=== PATIENT | male | born 1980 | race Caucasian/White ===

== ENCOUNTER 2018-05-27 13:58 | Inpatient (IN) | payer BC ==
[~2018-05-27] VITALS: Ht 182.9 cm; Wt 137.7 kg
--- NOTE | 2018-05-27 07:01 | NUR ---
report given to oncoming nurse
[~2018-05-27 13:58] MED LIST: LEVAQUIN500 MG PO; PANTOPRAZOLE SO40 MG PO; TRIBENZOR 40-51 EACH PO
--- OUTSIDE RECORDS SUMMARY | 2018-05-27 14:01 | XMS REPORT | Clinical Summary ---
Author Author [facility] Organization [facility] Address Unknown Phone Unavailable Care Team Providers Care Shake Sawyer Name Role Phone PCP Unavailable Allergies No Known Allergies Medications End Date Status Medication Sig Dispensed Refills Start Date 07/28/2018 Active hydroCHLOROthiazide Take 1 tablet 90 tablet 1 (HYDRODIURIL) 25 mg by mouth 8 tabletIndications: daily for 180 Alcoholic hepatitis days. without ascites, Hypertension, unspecified type 01/28/2018 Discontinued Olmesartan-Hydrochlorothi Take 1 tablet 0 azide 40-12.5 mg per by mouth tabletIndications: Dr. sky Alvarado evening. 01/28/2018 Discontinued metroNIDAZOLE (FLAGYL) Take 500 mg 0 500 mg tabletIndications: by mouth 3 Dr. Jayy Myrick times daily. 01/28/2018 Discontinued Omeprazole 40 mg Take 40 mg by 0 capsuleIndications: Dr. thayer daily. Jayy Myrick 01/28/2018 Discontinued ciprofloxacin HCl (CIPRO) Take 750 mg 0 750 mg tabletIndications: by mouth 2 Dr. Jayy Myrick times daily. 01/21/2018 01/28/2018 Discontinued traZODone (DESYREL) 100 Take 100 mg 0 mg tabletIndications: by mouth at chronic trouble sleeping bedtime nightly. 01/28/2018 Discontinued traZODone (DESYREL) 50 mg Take 1 tablet 30 tablet 2 tabletIndications: by mouth 8 Alcoholic hepatitis every evening without ascites for 90 days. 01/28/2018 Discontinued folic acid (FOLVITE) 1 mg Take 1 tablet 30 tablet 2 tabletIndications: by mouth 8 Alcoholic hepatitis daily for 90 without ascites days. 04/29/2018 cyanocobalamin, vitamin Take 1 tablet 30 tablet 2 B-12, 1,000 mcg by mouth 8 tabletIndications: daily for 90 Alcoholic hepatitis days. without ascites 01/28/2018 Discontinued hydroCHLOROthiazide Take 1 tablet 90 tablet 1 (HYDRODIURIL) 25 mg by mouth 8 tabletIndications: daily for 180 Alcoholic hepatitis days. without ascites, Hypertension, unspecified type 01/28/2018 Discontinued multivitamin Take 1 tablet 30 tablet 2 tabletIndications: by mouth 8 Alcoholic hepatitis daily for 90 without ascites days. 01/28/2018 Discontinued NIFEdipine (PROCARDIA XL) Take 1 tablet 60 tablet 2 30 mg extended release by mouth 8 tabletIndications: every 12 Alcoholic hepatitis hours for 90 without ascites, days. Hypertension, unspecified type 04/28/2018 traZODone (DESYREL) 50 mg Take 1 tablet 30 tablet 2 tabletIndications: by mouth 8 Alcoholic hepatitis every evening without ascites for 90 days. 04/29/2018 folic acid (FOLVITE) 1 mg Take 1 tablet 30 tablet 2 tabletIndications: by mouth 8 Alcoholic hepatitis daily for 90 without ascites days. 01/28/2018 Discontinued hydroCHLOROthiazide Take 1 tablet 90 tablet 1 (HYDRODIURIL) 25 mg by mouth 8 tabletIndications: daily for 180 Alcoholic hepatitis days. without ascites, Hypertension, unspecified type 04/29/2018 multivitamin Take 1 tablet 30 tablet 2 tabletIndications: by mouth 8 Alcoholic hepatitis daily for 90 without ascites days. 01/28/2018 Discontinued NIFEdipine (PROCARDIA XL) Take 1 tablet 60 tablet 2 30 mg extended release by mouth 8 tabletIndications: every 12 Alcoholic hepatitis hours for 90 without ascites, days. Hypertension, unspecified type 04/28/2018 NIFEdipine (PROCARDIA XL) Take 1 tablet 60 tablet 2 30 mg extended release by mouth 8 tabletIndications: every 12 Alcoholic hepatitis hours for 90 without ascites, days. Hypertension, unspecified type Active Problems Problem Noted Date Sinus tachycardia 01/28/2018 Hypertension 01/28/2018 Prediabetes 01/28/2018 Alcoholic hepatitis without ascites Acute kidney injury Resolved Problems Problem Noted Date Resolved Date Sepsis 01/24/2018 01/28/2018 Alcohol withdrawal 01/24/2018 01/28/2018 Hepatitis 01/24/2018 01/28/2018 Encounters Care Team Description Date Type Specialty Pia Beltran ResidentMD Greenberg, Dannie B, MD Alcoholic hepatitis without ascites (Primary Dx); Sepsis, due to unspecified organism; Acute kidney injury; Hypertension, unspecified type 01/24/2018 Hospital - Encounter 01/28/2018 after 05/26/2017 Family History Medical History Relation Name Comments Hypertension Father Hypertension Mother Relation Name Status Comments Brother Alive Father Mother Alive Social History Date Tobacco Use Types Packs/Day Years Used Never Smoker Smokeless Tobacco: Never Used Alcohol Use Drinks/Week oz/Week Comments Yes 3 Shots of 1.8 last drink Sunday: 4 vodka shots; 3-4 drinks a liquor night Sex Assigned at Date Recorded Not on file Industry Job Start Date Occupation Not on file Not on file Not on file Travel End Travel History Travel Start No recent travel history available. Last Filed Vital Signs Time Taken Vital Sign Reading 01/28/2018 12:55 PM [employer] Blood Pressure 122/75 01/28/2018 12:55 PM [employer]ATION ARCH[employer] Pulse 98 01/28/2018 12:55 PM [employer]OMATION ARCHIT[employer] Temperature 37 C (98.6 F) 01/28/2018 12:55 PM AUTOMATION ARCHITECT Respiratory Rate 18 01/25/2018 2:15 PM AUTOMATION ARCHITECT Oxygen Saturation 98% - Inhaled Oxygen - Concentration 01/25/2018 2:43 PM AUTOMATION ARCHITECT Weight 127.9 kg (282 lb) 01/25/2018 2:43 PM AUTOMATION ARCHITECT Height 182.9 cm (6') 01/25/2018 2:43 PM AUTOMATION ARCHITECT Body Mass Index 38.25 Plan of Treatment Health Maintenance Due Date Last Done Comments IMM Influenza Seasonal 11/26/2018 Oct to April (>/=19 yrs) Procedures Comments Procedure Name Priority Date/Time Associated Diagnosis TRANSTHORACIC ECHO (TTE) 01/28/2018 10:24 AM AUTOMATION ARCHITECT GLUCOSE POC Routine 01/28/2018 6:50 AM AUTOMATION ARCHITECT SALIVARY CORTISOL Routine 01/28/2018 5:40 AM AUTOMATION ARCHITECT CORTISOL, TOTAL Routine 01/28/2018 4:30 AM AUTOMATION ARCHITECT COMPREHENSIVE METABOLIC Routine 01/28/2018 PANEL(DBIL NOT INCLUDED) 4:30 AM AUTOMATION ARCHITECT CBC/DIFF Routine 01/28/2018 4:30 AM AUTOMATION ARCHITECT PT/INR/PTT Routine 01/27/2018 4:30 AM AUTOMATION ARCHITECT COMPREHENSIVE METABOLIC Routine 01/27/2018 PANEL(DBIL NOT INCLUDED) 4:30 AM AUTOMATION ARCHITECT CBC/DIFF Routine 01/27/2018 4:30 AM AUTOMATION ARCHITECT UA CHEMISTRIES Routine 01/26/2018 8:53 AM AUTOMATION ARCHITECT T PROT/CREA RATIO,UR Routine 01/26/2018 8:53 AM AUTOMATION ARCHITECT FREE T4 Routine 01/26/2018 4:20 AM AUTOMATION ARCHITECT TSH Routine 01/26/2018 4:20 AM AUTOMATION ARCHITECT PT/INR/PTT Routine 01/26/2018 4:20 AM AUTOMATION ARCHITECT COMPREHENSIVE METABOLIC Routine 01/26/2018 PANEL(DBIL NOT INCLUDED) 4:20 AM AUTOMATION ARCHITECT CBC/DIFF Routine 01/26/2018 4:20 AM AUTOMATION ARCHITECT INFUSION PUMP Routine 01/25/2018 2:39 PM AUTOMATION ARCHITECT BASIC METABOLIC PANEL STAT 01/25/2018 11:56 AM AUTOMATION ARCHITECT CBC/DIFF STAT 01/25/2018 11:56 AM AUTOMATION ARCHITECT HEMOGLOBIN A1C STAT 01/25/2018 11:56 AM AUTOMATION ARCHITECT CREATININE, UR STAT 01/25/2018 11:56 AM AUTOMATION ARCHITECT UREA NITROGEN, UR STAT 01/25/2018 11:56 AM AUTOMATION ARCHITECT ELECTROLYTES, UR STAT 01/25/2018 11:56 AM AUTOMATION ARCHITECT BASIC METABOLIC PANEL Routine 01/25/2018 4:00 AM AUTOMATION ARCHITECT LACTIC ACID STAT 01/25/2018 4:00 AM AUTOMATION ARCHITECT ALCOHOL STAT 01/25/2018 4:00 AM AUTOMATION ARCHITECT HEPATITIS PANEL STAT 01/25/2018 4:00 AM AUTOMATION ARCHITECT VITAMIN B12 STAT 01/25/2018 4:00 AM AUTOMATION ARCHITECT LACTIC ACID STAT 01/25/2018 12:00 AM AUTOMATION ARCHITECT FOLIC ACID STAT 01/25/2018 12:00 AM AUTOMATION ARCHITECT VITAMIN B12 STAT 01/25/2018 12:00 AM AUTOMATION ARCHITECT COMPREHENSIVE METABOLIC STAT 01/25/2018 PANEL(DBIL NOT INCLUDED) 12:00 AM AUTOMATION ARCHITECT URINE CULTURE STAT 01/24/2018 10:00 PM AUTOMATION ARCHITECT XRAY CHEST 2 VIEWS STAT 01/24/2018 Sepsis, due to 9:37 PM AUTOMATION ARCHITECT unspecified organism COMPUTED TOMOGRAPHY STAT 01/24/2018 Sepsis, due to ABDOMEN AND PELVIS 8:42 PM AUTOMATION ARCHITECT unspecified organism WITHOUT CONTRAST VBG POC Routine 01/24/2018 5:48 PM AUTOMATION ARCHITECT PT/INR/PTT STAT 01/24/2018 5:43 PM AUTOMATION ARCHITECT BLOOD CULTURE STAT 01/24/2018 5:40 PM AUTOMATION ARCHITECT BLOOD CULTURE STAT 01/24/2018 5:40 PM AUTOMATION ARCHITECT BMP POC Routine 01/24/2018 11:58 AM AUTOMATION ARCHITECT 12 LEAD EKG Routine 01/24/2018 11:51 AM AUTOMATION ARCHITECT HIV-1/HIV-2 ROUTINE STAT 01/24/2018 SCREENING 11:38 AM AUTOMATION ARCHITECT UA CHEMISTRIES STAT 01/24/2018 11:38 AM AUTOMATION ARCHITECT LIPASE STAT 01/24/2018 11:38 AM AUTOMATION ARCHITECT LIVER PROFILE STAT 01/24/2018 11:38 AM AUTOMATION ARCHITECT CBC/DIFF STAT 01/24/2018 11:38 AM AUTOMATION ARCHITECT after 05/26/2017 Results * TRANSTHORACIC ECHO (TTE) (01/28/2018 10:24 AM AUTOMATION ARCHITECT) TRANSTHORACIC Transthoracic SMS ECHO (TTE) Echo Report INDRA GALVAN Age:37 Gender: M :1980 Exam Date: 01/28/2018 10:24 Exam Location: [facility] Echo Ordering Phys: DANNIE TINOCO Referring Phys:[id number], DEVON Reading Phys:Tejas Gong MD Fellow Phys: Madelin Martines M.D. Fellow Phys: Review Coordinator: Peter Smith Reason For Exam: Indications: Dyspnea, unspecified ICD-9 Codes: R06.00 Exam Type: TRANSTHORACIC ECHO (TTE) Procedure CPT:29255 Addtional CPT: Ht (in): 72 BSA: 2.60HR: 116 Rhythm: Sinus tachycardia Wt (lb): 282BP: 100/ 65 Technical Quality: Technically difficult study History: 37 yo M with HTN, SOB MEASUREMENTS Normal ranges based on 95% confidence intervals for adults, some normal patients may fall outside of this range especially when indexing for BSA 2D ECHO LV Diastolic Diameter PLAX4.3 cm 4.2-5.8 (M) / 3.8-5.2 (F) LV Systolic Diameter PLAX 2.8 cm 2.5-4.0 (M) / 2.2-3.5 (F) LV Fractional Shortening PLAX 33.6 % IVS Diastolic Thickness 0.9 cm 0.6-1.0 (M) / 0.6-0.9 (F) LVPW Diastolic Thickness0 .9 cm 0.6-1.0 (M) / 0.6-0.9 (F) LV Relative Wall Thickness0.42 <=0.42 LVOT Diameter 2.3 cm Aortic Root Diameter 3.5 cm LV Diastolic Volume MOD 4C135 cm LV Systolic Volume MOD 4C 58.5 cm LA Volume 61.9 cm LA Volume Index 23.8 cm/m 16 - 34 cm/m LV Mass by linear [id number] g LV Mass by linear method Index46.8 g/m DOPPLER LVOT Peak Velocity 122 cm/s LVOT Peak Gradient 5.9 mmHg LVOT Mean Velocity 85.7 cm/s LVOT Mean Gradient 2.9 mmHg LVOT Velocity Time Integral 20.4 cm LVOT Stroke Volume 84.4 cm LV E' Lateral Velocity 11.2 cm/s FINDINGS Left Ventricle Normal left ventricular size. Normal left ventricular wall thickness. Normal left ventricular systolic function. Left ventricular ejection fraction is 60- 65%. There are no regional wall motion abnormalities noted. Cannot grade LV diastology due to tachycardia and E-A fusion. Right Ventricle Grossly normal right ventricular size and function. S' 14cm/s, which is normal. Right Atrium Grossly normal right atrial size. Left Atrium Normal left atrial size. IAS Mitral Valve Grossly normal mitral valve. Trace mitral regurgitation. Aortic Valve The aortic valve is trileaflet and opens well. No significant aortic stenosis or regurgitation by Doppler assessment. Tricuspid Valve Grossly normal tricuspid valve. No significant tricuspid stenosis or regurgitation by Doppler assessment. Pulmonic Valve Structurally normal pulmonic valve. Trace pulmonic regurgitation. Pericardium Echo free space anterior to the right ventricle likely represents a fat pad. Aorta Normal size aortic root. IVC IVC is not optimally visualized. CONCLUSIONS Technically difficult study. No prior study for comparison. 1. Normal left ventricular size. Normal left ventricular wall thickness. Normal left ventricular systolic function. Left ventricular ejection fraction is 60- 65%. There are no regional wall motion abnormalities noted. Cannot grade LV diastology due to tachycardia and E-A fusion. 2. Grossly normal right ventricular size and function. S' 14cm/s, which is normal. 3. No significant valve abnormalities. Tejas Gong MD Edited by:Tejas Gong MD (Electronically Signed) Final Date:28 January 2018 11:16 2D ECHO LV Diastolic Diameter PLAX4.3 cm 4.2-5.8 (M) / 3.8-5.2 (F) LV Systolic Diameter PLAX 2.8 cm 2.5-4.0 (M) / 2.2-3.5 (F) LV Fractional Shortening PLAX 33.6 % IVS Diastolic Thickness 0.9 cm 0.6-1.0 (M) / 0.6-0.9 (F) LVPW Diastolic Thickness0 .9 cm 0.6-1.0 (M) / 0.6-0.9 (F) LV Relative Wall Thickness0.42 <=0.42 LVOT Diameter 2.3 cm Aortic Root Diameter 3.5 cm LV Diastolic Volume MOD 4C135 cm LV Systolic Volume MOD 4C 58.5 cm LA Volume 61.9 cm LA Volume Index 23.8 cm/m 16 - 34 cm/m LV Mass by linear g LV Mass by linear method Index46.8 g/m DOPPLER LVOT Peak Velocity 122 cm/s LVOT Peak Gradient 5.9 mmHg LVOT Mean Velocity 85.7 cm/s LVOT Mean Gradient 2.9 mmHg LVOT Velocity Time Integral 20.4 cm LVOT Stroke Volume 84.4 cm LV E' Lateral Velocity 11.2 cm/s Performing Organization Address City/State/Zipcode Phone Number SMS * GLUCOSE POC (01/28/2018 6:50 AM AUTOMATION ARCHITECT) Glucose POC 147 (H) 74 - 106 mg/dL BT MAIN-STATION 1 Performing Organization Address City/[facility] Phone Number MISYS BT MAIN-STATION 1 * SALIVARY CORTISOL (01/28/2018 5:40 AM AUTOMATION ARCHITECT) Pathologist [employer] Salivary 0.221 LABORATORY Cortisol Unit: ug/dL [facility] OF (note) KATT Reference Range: Children and Adults: 8:00a.m.: 0.025 - 0.600 Noon:<0.010 - 0.330 4:00p.m.: 0.010 - 0.200 Midnight:<0.010 - 0.090 Specimen Other (Specify in Comments) Performing Organization Address City/[facility] Phone Number [employer] [facility] OF [address] [id number] [facility] 145 * COMPREHENSIVE METABOLIC PANEL(DBIL NOT INCLUDED) (01/28/2018 4:30 AM AUTOMATION ARCHITECT) Only the most recent of 4 results within the time period is included. Albumin 3.5 (L) 4.2 - 5.5 g/dL BT MAIN-STATION 1 Calcium 9.3 8.6 - 10.3 mg/dL BT MAIN-STATION 1 CO2 30 21 - 31 mmol/L BT MAIN-STATION 1 Chloride 96 (L) 98 - 107 mmol/L BT MAIN-STATION 1 Creatinine 1.60 (H) 0.7 - 1.3 mg/dL BT MAIN-STATION 1 Glucose 108 70 - 110 mg/dL BT MAIN-STATION 1 Alk Phos 86 34 - 104 U/L BT MAIN-STATION 1 Potassium 3.5 3.5 - 5.1 mmol/L BT MAIN-STATION 1 Sodium 138 136 - 145 mmol/L BT MAIN-STATION 1 ALT 25 7 - 52 U/L BT MAIN-STATION 1 AST 52 (H) 13 - 39 U/L BT MAIN-STATION 1 Urea Nitrogen 11 7 - 25 mg/dL BT MAIN-STATION 1 T Bilirubin 1.7 (H) 0.2 - 1.2 mg/dL BT MAIN-STATION 1 T Protein 6.5 6.0 - 8.3 g/dL BT MAIN-STATION 1 GFR, Estimated 48 mL/min/1.73 m2 BT MAIN-STATION 1 GFR, Estim, 59 mL/min/1.73 m2 BT MAIN-STATION Afr-Am 1 Anion Gap 12 BT MAIN-STATION 1 Specimen Blood Performing Organization Address [facility]/Zipcode Phone Number MISYS BT MAIN-STATION 1 * CORTISOL, TOTAL (01/28/2018 4:30 AM AUTOMATION ARCHITECT) Cortisol, Total 12.3 3.44 - 22.45 mcg/dL BT MAIN-STATION 1 Performing Organization Address [facility] Phone Number MISYS BT MAIN-STATION 1 * CBC/DIFF (01/28/2018 4:30 AM AUTOMATION ARCHITECT) Only the most recent of 5 results within the time period is included. WBC 12.9 (H) 4.5 - 12.0 K/uL BT MAIN-STATION 2 RBC 3.93 (L) 4.60 - 6.20 M/uL BT MAIN-STATION 2 Hemoglobin 13.7 (L) 14.0 - 18.0 g/dL BT MAIN-STATION 2 Hematocrit 39.0 (L) 40.0 - 54.0 % BT MAIN-STATION 2 MCV 99 (H) 82 - 92 fL BT MAIN-STATION 2 MCH 34.9 (H) 27.0 - 31.0 pg BT MAIN-STATION 2 MCHC 35.1 32.0 - 36.0 g/dL BT MAIN-STATION 2 RDW 44.0 (H) 35.1 - 43.9 fL BT MAIN-STATION 2 Platelet 340 150 - 400 K/uL BT MAIN-STATION 2 Mean Platelet 10.2 9.4 - 12.4 fL BT MAIN-STATION Volume 2 Percent NRBC 0.0 BT MAIN-STATION 2 Absolute NRBC 0.00 BT MAIN-STATION 2 Neutrophil 74.9 (H) 34.0 - 67.9 % BT MAIN-STATION 2 Lymphocyte 11.9 (L) 21.8 - 50.0 % BT MAIN-STATION 2 Monocyte 10.1 5.3 - 12.0 % BT MAIN-STATION 2 Eosinophil 2.1 0.8 - 5.0 % BT MAIN-STATION 2 Basophil 0.5 0.2 - 1.2 % BT MAIN-STATION 2 Pct Immat Gran 0.5 0.0 - 0.5 BT MAIN-STATION 2 Neutrophil, Abs 9.66 (H) 1.78 - 5.36 K/uL BT MAIN-STATION 2 Lymphocyte, Abs 1.54 1.32 - 3.57 K/uL BT MAIN-STATION 2 Monocyte, Abs 1.31 (H) 0.30 - 0.82 K/uL BT MAIN-STATION 2 Eosinophil, Abs 0.27 0.04 - 0.54 K/uL BT MAIN-STATION 2 Basophil, Abs 0.07 0.01 - 0.08 K/uL BT MAIN-STATION 2 Absol Immat 0.07 (H) 0.00 - 0.03 K/uL BT MAIN-STATION Gran 2 Specimen Blood Performing Organization Address [facility] Phone Number MISYS BT MAIN-STATION 2 * PT/INR/PTT (01/27/2018 4:30 AM AUTOMATION ARCHITECT) Only the most recent of 3 results within the time period is included. PT 14.5 11.8 - 15.0 Seconds BT MAIN-STATION 3 INR 1.2 BT MAIN-STATION SUGGESTED THERAPEUTIC RANGES: 3 INR 2.0-3.0 for MODERATE INTENSITY ANTICOAGULATION INR 2.5-3.5 for HIGH INTENSITY ANTICOAGULATION PTT 35.5 23.6 - 36.4 Seconds BT MAIN-STATION 3 Specimen Blood Performing Organization Address [facility] Phone Number MISYS BT MAIN-STATION 3 * UA CHEMISTRIES (01/26/2018 8:53 AM AUTOMATION ARCHITECT) Only the most recent of 2 results within the time period is included. Color Yellow BT MAIN-STATION 3 Clarity Clear BT MAIN-STATION 3 Spec [place] 1.005 1.001 - 1.035 BT MAIN-STATION 3 pH 6.0 5 - 8 BT MAIN-STATION 3 Protein Negative NEG BT MAIN-STATION 3 Glucose Negative NEG BT MAIN-STATION 3 Ketone Negative NEG BT MAIN-STATION 3 Bilirubin Negative NEG BT MAIN-STATION 3 Nitrate Negative NEG BT MAIN-STATION 3 Urobilinogen <1.0 0.2 - 1.0 EU/dL BT MAIN-STATION 3 Leukocyte Negative NEG BT MAIN-STATION 3 Blood Negative NEG BT MAIN-STATION 3 Specimen Urine Performing Organization Address [facility] [place] Number MISYS BT MAIN-STATION 3 * T PROT/CREA RATIO,UR (01/26/2018 8:53 AM AUTOMATION ARCHITECT) Creatinine, Ur 59.4 20 - 370 mg/dL BT MAIN-STATION 1 T Prot, Ur 0.08 g/L BT MAIN-STATION 1 T Prot/Crea 0.13 0.0 - 0.5 BT MAIN-STATION Ratio,Ur 1 Specimen Urine Performing Organization Address [facility] Phone Number MISYS BT MAIN-STATION 1 * TSH (01/26/2018 4:20 AM AUTOMATION ARCHITECT) TSH 8.94 (H) 0.57 - 3.74 uIU/mL BT MAIN-STATION 1 Performing Organization Address [facility] Phone Number MISYS BT MAIN-STATION 1 * FREE T4 (01/26/2018 4:20 AM AUTOMATION ARCHITECT) Free T4 1.36 (H) 0.61 - 1.18 ng/dl BT MAIN-STATION 1 Performing Organization Address [facility] Phone Number MISYS BT MAIN-STATION 1 * HEMOGLOBIN A1C (01/25/2018 11:56 AM AUTOMATION ARCHITECT) Hemoglobin A1c 6.2 (H) 4.3 - 6.1 % BT DIAGNOSTIC IMMUNOLOGY Est Average 131.2 mg/dL BT DIAGNOSTIC Gluc IMMUNOLOGY Specimen Blood Performing Organization Address [facility] Phone Number MISYS BT DIAGNOSTIC IMMUNOLOGY * UREA NITROGEN, UR (01/25/2018 11:56 AM AUTOMATION ARCHITECT) Urea Nitrogen, 116 (L) 350 - 1,000 mg/dL BT MAIN-STATION Ur 1 Specimen Urine Performing Organization Address [facility] Phone Number MISYS BT MAIN-STATION 1 * ELECTROLYTES, UR (01/25/2018 11:56 AM AUTOMATION ARCHITECT) Sodium, Ur 59 40 - 220 mmol/L BT MAIN-STATION 1 Potassium, Ur 10 (L) 25 - 125 mmol/L BT MAIN-STATION 1 Chloride, Ur 63 (L) 110 - 250 mmol/L BT MAIN-STATION 1 Specimen Urine Performing Organization Address [facility] Phone Number MISYS BT MAIN-STATION 1 * CREATININE, UR (01/25/2018 11:56 AM AUTOMATION ARCHITECT) Creatinine, Ur 62.2 20 - 370 mg/dL BT MAIN-STATION 1 Specimen Urine Performing Organization Address [facility] Phone Number MISYS BT MAIN-STATION 1 * BASIC METABOLIC PANEL (01/25/2018 11:56 AM AUTOMATION ARCHITECT) Only the most recent of 2 results within the time period is included. CO2 28 21 - 31 mmol/L BT MAIN-STATION 1 Chloride 102 98 - 107 mmol/L BT MAIN-STATION 1 Potassium 3.7 3.5 - 5.1 mmol/L BT MAIN-STATION 1 Sodium 139 136 - 145 mmol/L BT MAIN-STATION 1 Glucose 155 (H) 70 - 110 mg/dL BT MAIN-STATION 1 Urea Nitrogen 12 7 - 25 mg/dL BT MAIN-STATION 1 Creatinine 2.20 (H) 0.7 - 1.3 mg/dL BT MAIN-STATION 1 Anion Gap 9 BT MAIN-STATION 1 Calcium 8.8 8.6 - 10.3 mg/dL BT MAIN-STATION 1 GFR, Estimated 33 mL/min/1.73 m2 BT MAIN-STATION 1 GFR, Estim, 41 mL/min/1.73 m2 BT MAIN-STATION Afr-Am 1 Specimen Blood Performing Organization Address [facility] Phone Number MISYS BT MAIN-STATION 1 * VITAMIN B12 (01/25/2018 4:00 AM AUTOMATION ARCHITECT) Only the most recent of 2 results within the time period is included. Vitamin B12 1,177 (H) 211 - 911 pg/mL BT MAIN-STATION 1 Specimen Blood Performing Organization Address [facility] Phone Number MISYS BT MAIN-STATION 1 * LACTIC ACID (01/25/2018 4:00 AM AUTOMATION ARCHITECT) Only the most recent of 2 results within the time period is included. Lactic Acid 1.2 0.5 - 2.2 mmol/L BT MAIN-STATION 1 Specimen Blood Performing Organization Address [facility] Phone Number MISYS BT MAIN-STATION 1 * HEPATITIS PANEL (01/25/2018 4:00 AM AUTOMATION ARCHITECT) HCV IgG Negative NEG BT MAIN-STATION 3 HBsAg Negative NEG BT MAIN-STATION 3 HAV, IgM Negative NEG BT MAIN-STATION 3 HBcAb, IgM Negative NEG BT MAIN-STATION 3 Specimen Blood Performing Organization Address [facility] Phone Number [facility] * ALCOHOL (01/25/2018 4:00 AM AUTOMATION ARCHITECT) Alcohol <0.010 <0.1 g/dL BT MAIN-STATION 1 Specimen Blood Performing Organization Address [facility] Phone Number [facility] BT MAIN-STATION 1 * FOLIC ACID (01/25/2018 12:00 AM AUTOMATION ARCHITECT) Folic Acid 3.3 (L) 5.9 - 24.8 ng/mL BT MAIN-STATION 1 Specimen Blood Performing Organization Address [facility] Phone Number [facility] BT MAIN-STATION 1 * URINE CULTURE (01/24/2018 10:00 PM AUTOMATION ARCHITECT) Spec Clean catch urine BT MICROBIOLOGY Description Order Comments None BT MICROBIOLOGY Culture No growth 3 days BT MICROBIOLOGY Report Status Final 01/28/2018 BT MICROBIOLOGY Specimen Urine clean catch - CLEAN CATCH URINE Performing Organization Address [facility] Phone Number [facility] * XRAY CHEST 2 VIEWS (01/24/2018 9:37 PM AUTOMATION ARCHITECT) Impressions Performed At IMPRESSION: SMS No acute thoracic abnormality. A "PRELIMINARY" report was made available via [facility] at the time of dictation by the resident indicated below. If the report is described as "FINALIZED" it indicates the attending/staff radiologist below has reviewed the images and agrees with the resident's interpretation. Dictated By: Markus Keen MD, 01/24/2018 9:53 PM I have reviewed the study and agree with the findings in this report. Signed By: Gela Basurto MD, 01/25/2018 1:27 AM Narrative Performed At EXAMINATION:XRAY CHEST 2 VIEWS, Frontal and lateral SMS INDICATION: sepsis ADDITIONAL HISTORY (per EPIC): Chills and fatigue. COMPARISON:None FINDINGS: TUBES/LINES:None LUNGS AND PLEURA:No consolidations or edema. No effusions or pneumothorax. HEART/MEDIASTINUM:Normal cardiomediastinal silhouette. MUSCULOSKELETAL:No acute findings. UPPER ABDOMEN: No acute findings. SOFT TISSUES: No acute findings. Procedure Note Interface, Rad/Mammog In - 01/25/2018 1:33 AM AUTOMATION ARCHITECT EXAMINATION: XRAY CHEST 2 VIEWS, Frontal and lateral INDICATION: sepsis ADDITIONAL HISTORY (per EPIC): Chills and fatigue. COMPARISON: None FINDINGS: TUBES/LINES: None LUNGS AND PLEURA: No consolidations or edema. No effusions or pneumothorax. HEART/MEDIASTINUM: Normal cardiomediastinal silhouette. MUSCULOSKELETAL: No acute findings. UPPER ABDOMEN: No acute findings. SOFT TISSUES: No acute findings. IMPRESSION IMPRESSION: No acute thoracic abnormality. A "PRELIMINARY" report was made available via [employer] at the time of dictation by the resident indicated below. If the report is described as "FINALIZED" it indicates the attending/staff radiologist below has reviewed the images and agrees with the resident's interpretation. Dictated By: Markus Keen MD, 01/24/2018 9:53 PM I have reviewed the study and agree with the findings in this report. Signed By: Gela Basurto MD, 01/25/2018 1:27 AM Performing Organization Address City/State/Zipcode Phone Number SMS * COMPUTED TOMOGRAPHY ABDOMEN AND PELVIS WITHOUT CONTRAST (01/24/2018 8:42 PM AUTOMATION ARCHITECT) Impressions Performed At IMPRESSION: SMS 1.No acute intra-abdominal or intrapelvic CT abnormalities. 2.Diffuse hepatic steatosis. A "PRELIMINARY" report was made available via [employer] at the time of dictation by the resident indicated below. If the report is described as "FINALIZED" it indicates the attending/staff radiologist below has reviewed the images and agrees with the resident's interpretation. Dictated By: Markus Keen MD, 01/24/2018 9:53 PM I have reviewed the study and agree with the findings in this report. Signed By: Gela Basurto MD, 01/25/2018 12:26 AM Narrative Performed At EXAM: CT Abdomen and Pelvis WITHOUT contrast SMS INDICATION: abdominal pain and sepsis evaluation COMPARISON: None available TECHNIQUE: Abdomen and pelvis were scanned utilizing a multidetector helical scanner from the lung base to the pubic symphysis without administration of IV contrast. Absence of intravenous contrast decreases sensitivity for detection of focal lesions and vascular pathology. Coronal and sagittal reformations were obtained. Routine protocol was performed. IV CONTRAST: None ORAL CONTRAST: None COMPLICATIONS: None RADIATION DOSE: Total DLP: 993 mGy*cm Estimated effective dose: (DLP x 0.015 x size factor) mSv CTDIvol has been reviewed. It is below the limits set by the Radiation Protocol Committee (RPC). FINDINGS: LINES and TUBES: None. LOWER THORAX:Right middle lobe and right lower lobe subsegmental atelectasis or scarring. HEPATOBILIARY: Diffusely decreased attenuation of the liver, consistent with diffuse hepatic steatosis.No focal hepatic lesions. No biliary ductal dilation. GALLBLADDER: Collapsed, which limits evaluation. SPLEEN: No splenomegaly. PANCREAS: No focal masses or ductal dilatation. ADRENALS: No adrenal nodules KIDNEYS/URETERS: No hydronephrosis. No cystic or solid mass lesions. No stones. Nonspecific bilateral perinephric fat stranding. GI TRACT: No abnormal distention, wall thickening, or evidence of bowel obstruction.Appendix is normal. PELVIC ORGANS/BLADDER: Normal LYMPH NODES: No lymphadenopathy. VESSELS: Unremarkable. PERITONEUM / RETROPERITONEUM: No free air or significant fluid. BONES: Unremarkable. SOFT TISSUES: Unremarkable. Procedure Note Interface, Rad/Mammog In - 01/25/2018 12:31 AM AUTOMATION ARCHITECT EXAM: CT Abdomen and Pelvis WITHOUT contrast INDICATION: abdominal pain and sepsis evaluation COMPARISON: None available TECHNIQUE: Abdomen and pelvis were scanned utilizing a multidetector helical scanner from the lung base to the pubic symphysis without administration of IV contrast. Absence of intravenous contrast decreases sensitivity for detection of focal lesions and vascular pathology. Coronal and sagittal reformations were obtained. Routine protocol was performed. IV CONTRAST: None ORAL CONTRAST: None COMPLICATIONS: None RADIATION DOSE: Total DLP: 993 mGy*cm Estimated effective dose: (DLP x 0.015 x size factor) mSv CTDIvol has been reviewed. It is below the limits set by the Radiation Protocol Committee (RPC). FINDINGS: LINES and TUBES: None. LOWER THORAX: Right middle lobe and right lower lobe subsegmental atelectasis or scarring. HEPATOBILIARY: Diffusely decreased attenuation of the liver, consistent with diffuse hepatic steatosis. No focal hepatic lesions. No biliary ductal dilation. GALLBLADDER: Collapsed, which limits evaluation. SPLEEN: No splenomegaly. PANCREAS: No focal masses or ductal dilatation. ADRENALS: No adrenal nodules KIDNEYS/URETERS: No hydronephrosis. No cystic or solid mass lesions. No stones. Nonspecific bilateral perinephric fat stranding. GI TRACT: No abnormal distention, wall thickening, or evidence of bowel obstruction. Appendix is normal. PELVIC ORGANS/BLADDER: Normal LYMPH NODES: No lymphadenopathy. VESSELS: Unremarkable. PERITONEUM / RETROPERITONEUM: No free air or significant fluid. BONES: Unremarkable. SOFT TISSUES: Unremarkable. IMPRESSION IMPRESSION: 1. No acute intra-abdominal or intrapelvic CT abnormalities. 2. Diffuse hepatic steatosis. A "PRELIMINARY" report was made available via [employer] at the time of dictation by the resident indicated below. If the report is described as "FINALIZED" it indicates the attending/staff radiologist below has reviewed the images and agrees with the resident's interpretation. Dictated By: Markus Keen MD, 01/24/2018 9:53 PM I have reviewed the study and agree with the findings in this report. Signed By: Gela Basurto MD, 01/25/2018 12:26 AM Performing Organization Address [facility] Phone Number SMS * VBG POC (01/24/2018 5:48 PM AUTOMATION ARCHITECT) pH, Robert POC 7.44 (H) 7.33 - 7.43 BT MAIN-STATION 1 pCO2, Robert POC 38.5 38.0 - 50.0 mm Hg BT MAIN-STATION 1 pO2, Robert POC 42 (L) 50 - 75 mm Hg BT MAIN-STATION 1 Base Excess, 2 mmol/L BT MAIN-STATION Robert POC 1 HCO3, Robert POC 26.3 (H) 22.0 - 26.0 mmol/L BT MAIN-STATION 1 % Sat, Robert POC 80 60 - 85 % BT MAIN-STATION 1 Lactic Acid, 2.83 (H) 0.4 - 2.0 mmol/L BT MAIN-STATION Robert POC 1 Sample Type Robert BT MAIN-STATION 1 TCO2, ROBERT POC 27 21 - 32 mmol/L BT MAIN-STATION 1 Performing Organization Address [facility] [place] Number MISYS BT MAIN-STATION 1 * BLOOD CULTURE (01/24/2018 5:40 PM AUTOMATION ARCHITECT) Only the most recent of 2 results within the time period is included. Spec Blood BT MICROBIOLOGY Description Order Comments RT AC BT MICROBIOLOGY Culture No growth 5 days BT MICROBIOLOGY Report Status Final 01/29/2018 BT MICROBIOLOGY Specimen Blood bag - BLOOD Performing Organization Address [facility] Phone Number MISYS BT MICROBIOLOGY * BMP POC (01/24/2018 11:58 AM AUTOMATION ARCHITECT) CO2 POC 22 21 - 32 mmol/L BT MAIN-STATION 1 Chloride POC 96 (L) 98 - 107 mmol/L BT MAIN-STATION 1 Potassium POC 3.3 (L) 3.50 - 5.10 mmol/L BT MAIN-STATION 1 Sodium POC 135 (L) 136 - 145 mmol/L BT MAIN-STATION 1 Glucose POC 223 (H) 74 - 106 mg/dL BT MAIN-STATION 1 Urea Nitrogen 8 7 - 18 mg/dL BT MAIN-STATION POC 1 Creatinine POC 3.0 (H) 0.6 - 1.3 mg/dL BT MAIN-STATION 1 Calcium Ionized 0.96 (L) 1.15 - 1.29 mmol/L BT MAIN-STATION POC 1 Hemoglobin POC 16.3 14.0 - 18.0 g/dL BT MAIN-STATION 1 Hematocrit POC 48.0 40.0 - 54.0 % BT MAIN-STATION 1 GFR, Estimated 23 mL/min/1.73 m2 BT MAIN-STATION 1 GFR, Estim, 28 mL/min/1.73 m2 BT MAIN-STATION Afr-Am 1 Performing Organization Address City/State/[facility] Phone Number MISYS BT MAIN-STATION 1 * 12 LEAD EKG (01/24/2018 11:51 AM AUTOMATION ARCHITECT) 12 LEAD EKG FOR [facility] Test Date:2018-01-24 Pat Name: INDRA GALVAN Department: [id number] Room: Gender: [place] Medical Scientist: [id number] :[id number] 11-22 Requested By: BENJAMIN MACEDO Order Number: [id number] Reading MD: Shital Gonsales M.D. Measurements Intervals [place] Rate: 126 P: 70 ME: 144 QRS: 53 QRSD: 94 T:1 QT: 406 QTc:589 Interpretive Statements SINUS TACHYCARDIA ST DEVIATION AND MODERATE T-WAVE ABNORMALITY, CONSIDER INFERIOR ISCHEMIA Electronically Signed On 01-24-2018 13:58:21 AUTOMATION ARCHITECT by Shital Gonsales M.D. Performing Organization Address City/State/Zipcode Phone Number SMS * HIV-1/HIV-2 ROUTINE SCREENING (01/24/2018 11:38 AM AUTOMATION ARCHITECT) HIV-1/HIV-2 Negative NEG BT MAIN-STATION 4 Performing Organization Address City/State/Zipcode Phone Number MISYS BT MAIN-STATION 4 * LIVER PROFILE (01/24/2018 11:38 AM AUTOMATION ARCHITECT) T Protein 7.0 6.0 - 8.3 g/dL BT MAIN-STATION 1 Albumin 3.8 (L) 4.2 - 5.5 g/dL BT MAIN-STATION 1 T Bilirubin 1.8 (H) 0.2 - 1.2 mg/dL BT MAIN-STATION 1 Alk Phos 126 (H) 34 - 104 U/L BT MAIN-STATION 1 AST 122 (H) 13 - 39 U/L BT MAIN-STATION 1 ALT 57 (H) 7 - 52 U/L BT MAIN-STATION 1 D Bilirubin 0.8 (H) 0.0 - 0.2 mg/dL BT MAIN-STATION 1 Specimen Blood Performing Organization Address City/State/Zipcode Phone Number MISYS BT MAIN-STATION 1 * LIPASE (01/24/2018 11:38 AM AUTOMATION ARCHITECT) Lipase 43 11 - 82 U/L BT MAIN-STATION 1 Specimen Blood Performing Organization Address City/State/Zipcode Phone Number MISYS BT MAIN-STATION 1 after 05/26/2017 Insurance Type Payer Benefit Subscriber ID Effective Phone Address Plan / Dates Group BC/BS BC/BS PPO xxxxxxxxxxxx 2017-P [phone] [address] [place] [address] Advance Directives For more information, please contact: [address] [address] Date Inactivated Comments Code Status Date Activated 01/28/2018 3:20 PM Full Code 01/24/2018 10:54 PM
--- OUTSIDE RECORDS SUMMARY | 2018-05-27 14:02 | XMS REPORT ---
Author Author [facility] Address Unknown Phone Unavailable Care Team Providers Care Aprn Name Role Phone Unavailable Unavailable Problems This patient has no known problems. Allergies, Adverse Reactions, Alerts This patient has no known allergies or adverse reactions. Medications This patient has no known medications. Encounters Start Date/Time End Date/Time Encounter Type Ad[facility] Encounter ID 2018-01-28 08:27:07 [facility] [id number] 2018-01-28 01:10:06 [facility] [id number] 2018-01-27 00:00:00 [facility]patient [facility] [id number] 2018-01-25 00:00:00 [facility] [id number] 2018-01-30 00:00:00 2018-01-30 00:00:00 Outpatient [facility] [id number] 2018-01-29 00:00:00 2018-01-29 00:00:00 Outpatient [facility] [id number] 2018-01-24 21:17:42 2018-01-24 21:17:42 Emergency [facility] [id number] 2018-01-24 20:24:34 2018-01-24 20:24:34 Emergency [facility] [id number] 2018-01-24 17:21:24 2018-01-24 17:21:24 Inpatient [facility] [id number]
[2018-05-27] MEDS ORDERED: SODIUM CHLORIDE 0.9% 1000ML 1,000 ML IV ONE (14:45)
[2018-05-27] MEDS ORDERED: ALBUTEROL/IPRATROPIUM 3 ML NEB NEB ONE (14:45)
[2018-05-27] MEDS ORDERED: ACETAMINOPHEN 325 MG TAB PO ONE (14:45)
--- NOTE | 2018-05-27 15:53 | Diagnostic Imaging Report ---
EXAMINATION: CHEST 2 VIEWS INDICATION: Cough, shortness of breath. COMPARISON: None FINDINGS: TUBES and LINES: None. LUNGS: Lungs are poorly inflated. There are bilateral interstitial opacities. There are patchy opacities in the lower lungs. No evidence of lobar consolidation. There is bilateral bronchial thickening. PLEURA: No pleural effusion or pneumothorax. HEART AND MEDIASTINUM: The cardiomediastinal silhouette is unremarkable. BONES AND SOFT TISSUES: No acute osseous abnormality. UPPER ABDOMEN: No free air under the diaphragm. IMPRESSION: Low lung volumes. Patchy opacities at lung bases could represent atelectasis or pneumonia in the appropriate clinical setting. No evidence of lobar consolidation. Bilateral bronchial wall thickening, which may represent bronchitis in the setting of cough. Signed by: Dr. Yvette Harris MD on 05/27/2018 3:50 PM
[2018-05-27] MEDS ORDERED: CEFTRIAXONE SOD 1 GM/NS 50 ML 50 ML IV ONE (16:00)
[2018-05-27] MEDS ORDERED: AZITHROMYCIN 500MG/NS 250 ML 250 ML IV ONE (16:00)
[2018-05-27 17:11] LABS: BASOPHILS # (AUTO) 0.1 (0.0-0.1); BASOPHILS % 0.6 % (0.0-1.0); EOSINOPHILS # (AUTO) 0.1 (0.0-0.4); EOSINOPHILS % 0.3 % (0.0-6.0); HEMATOCRIT 33.6 % (38.2-49.6); HEMOGLOBIN 11.8 g/dL (14.0-18.0); LYMPHOCYTES # (AUTO) 1.7 (1.0-3.2); LYMPHOCYTES % 8.1 % (18.0-39.1); MEAN CORPUSCULAR HEMOGLOBIN 35.3 pg (28-32); MEAN CORPUSCULAR HGB CONC 35.1 g/dL (31-35); MEAN CORPUSCULAR VOLUME 100.6 fL (81-99); MONOCYTES # (AUTO) 2.3 (0.2-0.8); MONOCYTES % 10.8 % (4.4-11.3); NEUTROPHILS # (AUTO) 16.8 (2.1-6.9); NEUTROPHILS % 78.5 % (38.7-80.0); PLATELET COUNT 281 x10e3/uL (140-360); RED BLOOD COUNT 3.34 x10e6/uL (4.3-5.7); RED CELL DISTRIBUTION WIDTH 12.4 % (11.7-14.4)
[2018-05-27 17:23] LABS: ALANINE AMINOTRANSFERASE 32 IU/L (0-55); ALBUMIN 2.3 g/dL (3.5-5.0); ALBUMIN/GLOBULIN RATIO 0.5 (0.8-2.0); ALKALINE PHOSPHATASE 157 IU/L (40-150); ANION GAP 14.2 mmol/L (8-16); BLOOD UREA NITROGEN 7 mg/dL (7-26); BUN/CREATININE RATIO 7 (6-25); CALCIUM 8.8 mg/dL (8.4-10.2); CARBON DIOXIDE 37 mmol/L (22-29); CHLORIDE 77 mmol/L (98-107); CREATININE, SERUM 0.98 mg/dL (0.72-1.25); EST GLOMERULAR FILTRATION RATE > 60 ML/MIN (60-); GLUCOSE 158 mg/dL (74-118); SODIUM 126 mmol/L (136-145)
[2018-05-27 17:24] LABS: POTASSIUM 2.2 mmol/L (3.5-5.1)
[2018-05-27] MEDS ORDERED: POTASSIUM CHLORIDE 20MEQ/100ML 100 ML IV ONE (17:30)
[2018-05-27 17:55] LABS: B-TYPE NATRIURETIC PEPTIDE2 221.6 pg/mL (0-100)
--- OUTSIDE RECORDS SUMMARY | 2018-05-27 18:28 | XMS REPORT | Clinical Summary ---
Author Author [facility] Organization [facility] Address Unknown Phone Unavailable Care Team Providers Care Lead Producer Name Role Phone PCP Unavailable Allergies No [...] Taken Vital Sign Reading 01/28/2018 12:55 PM MEDICAL LAB TECH INSTRUCTOR Blood Pressure 122/75 01/28/2018 12:55 PM MEDICAL LAB TECH INSTRUCTOR Pulse 98 01/28/2018 12:55 PM MEDICAL LAB TECH INSTRUCTOR Temperature 37 C (98.6 F) 01/28/2018 12:55 PM MEDICAL LAB TECH INSTRUCTOR Respiratory Rate 18 01/25/2018 2:15 PM MEDICAL LAB TECH INSTRUCTOR Oxygen Saturation 98% - Inhaled Oxygen - Concentration 01/25/2018 2:43 PM MEDICAL LAB TECH INSTRUCTOR Weight 127.9 kg (282 lb) 01/25/2018 2:43 PM MEDICAL LAB TECH INSTRUCTOR Height 182.9 cm (6') 01/25/2018 2:43 PM MEDICAL LAB TECH INSTRUCTOR Body Mass Index 38.25 Plan of Treatment Health Maintenance Due Date Last Done Comments IMM Influenza Seasonal 11/26/2018 Oct to April (>/=19 yrs) Procedures Comments Procedure Name Priority Date/Time Associated Diagnosis TRANSTHORACIC ECHO (TTE) 01/28/2018 10:24 AM MEDICAL LAB TECH INSTRUCTOR GLUCOSE POC Routine 01/28/2018 6:50 AM MEDICAL LAB TECH INSTRUCTOR SALIVARY CORTISOL Routine 01/28/2018 5:40 AM MEDICAL LAB TECH INSTRUCTOR CORTISOL, TOTAL Routine 01/28/2018 4:30 AM MEDICAL LAB TECH INSTRUCTOR COMPREHENSIVE METABOLIC Routine 01/28/2018 PANEL(DBIL NOT INCLUDED) 4:30 AM MEDICAL LAB TECH INSTRUCTOR CBC/DIFF Routine 01/28/2018 4:30 AM MEDICAL LAB TECH INSTRUCTOR PT/INR/PTT Routine 01/27/2018 4:30 AM MEDICAL LAB TECH INSTRUCTOR COMPREHENSIVE METABOLIC Routine 01/27/2018 PANEL(DBIL NOT INCLUDED) 4:30 AM MEDICAL LAB TECH INSTRUCTOR CBC/DIFF Routine 01/27/2018 4:30 AM MEDICAL LAB TECH INSTRUCTOR UA CHEMISTRIES Routine 01/26/2018 8:53 AM MEDICAL LAB TECH INSTRUCTOR T PROT/CREA RATIO,UR Routine 01/26/2018 8:53 AM MEDICAL LAB TECH INSTRUCTOR FREE T4 Routine 01/26/2018 4:20 AM MEDICAL LAB TECH INSTRUCTOR TSH Routine 01/26/2018 4:20 AM MEDICAL LAB TECH INSTRUCTOR PT/INR/PTT Routine 01/26/2018 4:20 AM MEDICAL LAB TECH INSTRUCTOR COMPREHENSIVE METABOLIC Routine 01/26/2018 PANEL(DBIL NOT INCLUDED) 4:20 AM MEDICAL LAB TECH INSTRUCTOR CBC/DIFF Routine 01/26/2018 4:20 AM MEDICAL LAB TECH INSTRUCTOR INFUSION PUMP Routine 01/25/2018 2:39 PM MEDICAL LAB TECH INSTRUCTOR BASIC METABOLIC PANEL STAT 01/25/2018 11:56 AM MEDICAL LAB TECH INSTRUCTOR CBC/DIFF STAT 01/25/2018 11:56 AM MEDICAL LAB TECH INSTRUCTOR HEMOGLOBIN A1C STAT 01/25/2018 11:56 AM MEDICAL LAB TECH INSTRUCTOR CREATININE, UR STAT 01/25/2018 11:56 AM MEDICAL LAB TECH INSTRUCTOR UREA NITROGEN, UR STAT 01/25/2018 11:56 AM MEDICAL LAB TECH INSTRUCTOR ELECTROLYTES, UR STAT 01/25/2018 11:56 AM MEDICAL LAB TECH INSTRUCTOR BASIC METABOLIC PANEL Routine 01/25/2018 4:00 AM MEDICAL LAB TECH INSTRUCTOR LACTIC ACID STAT 01/25/2018 4:00 AM MEDICAL LAB TECH INSTRUCTOR ALCOHOL STAT 01/25/2018 4:00 AM MEDICAL LAB TECH INSTRUCTOR HEPATITIS PANEL STAT 01/25/2018 4:00 AM MEDICAL LAB TECH INSTRUCTOR VITAMIN B12 STAT 01/25/2018 4:00 AM MEDICAL LAB TECH INSTRUCTOR LACTIC ACID STAT 01/25/2018 12:00 AM MEDICAL LAB TECH INSTRUCTOR FOLIC ACID STAT 01/25/2018 12:00 AM MEDICAL LAB TECH INSTRUCTOR VITAMIN B12 STAT 01/25/2018 12:00 AM MEDICAL LAB TECH INSTRUCTOR COMPREHENSIVE METABOLIC STAT 01/25/2018 PANEL(DBIL NOT INCLUDED) 12:00 AM MEDICAL LAB TECH INSTRUCTOR URINE CULTURE STAT 01/24/2018 10:00 PM MEDICAL LAB TECH INSTRUCTOR XRAY CHEST 2 VIEWS STAT 01/24/2018 Sepsis, due to 9:37 PM MEDICAL LAB TECH INSTRUCTOR unspecified organism COMPUTED TOMOGRAPHY STAT 01/24/2018 Sepsis, due to ABDOMEN AND PELVIS 8:42 PM MEDICAL LAB TECH INSTRUCTOR unspecified organism WITHOUT CONTRAST VBG POC Routine 01/24/2018 5:48 PM MEDICAL LAB TECH INSTRUCTOR PT/INR/PTT STAT 01/24/2018 5:43 PM MEDICAL LAB TECH INSTRUCTOR BLOOD CULTURE STAT 01/24/2018 5:40 PM MEDICAL LAB TECH INSTRUCTOR BLOOD CULTURE STAT 01/24/2018 5:40 PM MEDICAL LAB TECH INSTRUCTOR BMP POC Routine 01/24/2018 11:58 AM MEDICAL LAB TECH INSTRUCTOR 12 LEAD EKG Routine 01/24/2018 11:51 AM MEDICAL LAB TECH INSTRUCTOR HIV-1/HIV-2 ROUTINE STAT 01/24/2018 SCREENING 11:38 AM MEDICAL LAB TECH INSTRUCTOR UA CHEMISTRIES STAT 01/24/2018 11:38 AM MEDICAL LAB TECH INSTRUCTOR LIPASE STAT 01/24/2018 11:38 AM MEDICAL LAB TECH INSTRUCTOR LIVER PROFILE STAT 01/24/2018 11:38 AM MEDICAL LAB TECH INSTRUCTOR CBC/DIFF STAT 01/24/2018 11:38 AM MEDICAL LAB TECH INSTRUCTOR after 05/26/2017 Results * TRANSTHORACIC ECHO (TTE) (01/28/2018 10:24 AM MEDICAL LAB TECH INSTRUCTOR) TRANSTHORACIC Transthoracic SMS ECHO (TTE) Echo Report INDRA GALVAN Age:37 Gender: M :1980 Exam Date: 01/28/2018 10:24 Exam Location: [facility] Echo Ordering Phys: DANNIE TINOCO Referring Phys:[id number], DEVON Reading Phys:Tejas Gong MD Fellow Phys: Madelin Martines M.D. Fellow Phys: L Tacker: Peter Smith Reason For Exam: Indications: Dyspnea, unspecified ICD-9 Codes: R06.00 Exam Type: TRANSTHORACIC ECHO (TTE) Procedure CPT:17892 Addtional CPT: Ht (in): 72 BSA: 2.60HR: [...] - 34 cm/m LV Mass by linear etfxga247 g LV Mass by linear method Index46.8 g/m DOPPLER LVOT Peak Velocity 122 cm/s LVOT Peak Gradient 5.9 mmHg LVOT Mean Velocity 85.7 cm/s LVOT Mean Gradient 2.9 mmHg LVOT Velocity Time Integral 20.4 cm LVOT Stroke Volume 84.4 cm LV E' Lateral Velocity 11.2 cm/s Performing Organization Address City/State/Zipcode Phone Number SMS * GLUCOSE POC (01/28/2018 6:50 AM MEDICAL LAB TECH INSTRUCTOR) Glucose POC 147 (H) 74 - 106 mg/dL BT MAIN-STATION 1 Performing Organization Address City/[facility] Phone Number MISYS BT MAIN-STATION 1 * SALIVARY CORTISOL (01/28/2018 5:40 AM MEDICAL LAB TECH INSTRUCTOR) Pathologist Environmental Operations Salivary 0.221 LABORATORY Cortisol Unit: ug/dL [facility] OF (note) KATT Reference Range: Children and Adults: 8:00a.m.: 0.025 - 0.600 Noon:<0.010 - 0.330 4:00p.m.: 0.010 - 0.200 Midnight:<0.010 - 0.090 Specimen Other (Specify in Comments) Performing Organization Address City/[facility] Phone Number [facility] [address] [id number] [facility] 145 * COMPREHENSIVE METABOLIC PANEL(DBIL NOT INCLUDED) (01/28/2018 4:30 AM MEDICAL LAB TECH INSTRUCTOR) Only the most recent of 4 results [...] MAIN-STATION 1 Specimen Blood Performing Organization Address [facility]/Zipcode Phone Number MISYS BT MAIN-STATION 1 * CORTISOL, TOTAL (01/28/2018 4:30 AM MEDICAL LAB TECH INSTRUCTOR) Cortisol, Total 12.3 3.44 - 22.45 mcg/dL BT MAIN-STATION 1 Performing Organization Address [facility] Phone Number M[facility]YS BT MAIN-STATION 1 * CBC/DIFF (01/28/2018 4:30 AM MEDICAL LAB TECH INSTRUCTOR) Only the most recent of 5 results [...] Gran 2 Specimen Blood Performing Organization Address [facility] Phone Number MISYS BT MAIN-STATION 2 * PT/INR/PTT (01/27/2018 4:30 AM MEDICAL LAB TECH INSTRUCTOR) Only the most recent of 3 results within the time period is included. PT 14.5 11.8 - 15.0 Seconds BT MAIN-STATION 3 INR 1.2 BT MAIN-STATION SUGGESTED THERAPEUTIC RANGES: 3 INR 2.0-3.0 for MODERATE INTENSITY ANTICOAGULATION INR 2.5-3.5 for HIGH INTENSITY ANTICOAGULATION PTT 35.5 23.6 - 36.4 Seconds BT MAIN-STATION 3 Specimen Blood Performing Organization Address [facility] Phone Number MISYS BT MAIN-STATION 3 * UA CHEMISTRIES (01/26/2018 8:53 AM MEDICAL LAB TECH INSTRUCTOR) Only the most recent of 2 results within the time period is included. Color Yellow BT MAIN-STATION 3 Clarity Clear BT MAIN-STATION 3 Spec [place]day 1.005 1.001 - 1.035 BT MAIN-STATION 3 [...] MAIN-STATION 3 Specimen Urine Performing Organization Address [facility] Phone Number MISYS BT MAIN-STATION 3 * T PROT/CREA RATIO,UR (01/26/2018 8:53 AM MEDICAL LAB TECH INSTRUCTOR) Creatinine, Ur 59.4 20 - 370 mg/dL BT MAIN-STATION 1 T Prot, Ur 0.08 g/L BT MAIN-STATION 1 T Prot/Crea 0.13 0.0 - 0.5 BT MAIN-STATION Ratio,Ur 1 Specimen Urine Performing Organization Address [facility] Phone Number MISYS BT MAIN-STATION 1 * TSH (01/26/2018 4:20 AM MEDICAL LAB TECH INSTRUCTOR) TSH 8.94 (H) 0.57 - 3.74 uIU/mL BT MAIN-STATION 1 Performing Organization Address [facility] Phone Number MISYS BT MAIN-STATION 1 * FREE T4 (01/26/2018 4:20 AM MEDICAL LAB TECH INSTRUCTOR) Free T4 1.36 (H) 0.61 - 1.18 ng/dl BT MAIN-STATION 1 Performing Organization Address [facility] Phone Number MISYS BT MAIN-STATION 1 * HEMOGLOBIN A1C (01/25/2018 11:56 AM MEDICAL LAB TECH INSTRUCTOR) Hemoglobin A1c 6.2 (H) 4.3 - 6.1 % BT DIAGNOSTIC IMMUNOLOGY Est Average 131.2 mg/dL BT DIAGNOSTIC Gluc IMMUNOLOGY Specimen Blood Performing Organization Address [facility] Phone Number MISYS BT DIAGNOSTIC IMMUNOLOGY * UREA NITROGEN, UR (01/25/2018 11:56 AM MEDICAL LAB TECH INSTRUCTOR) Urea Nitrogen, 116 (L) 350 - 1,000 mg/dL BT MAIN-STATION Ur 1 Specimen Urine Performing Organization Address [facility] Phone Number MISYS BT MAIN-STATION 1 * ELECTROLYTES, UR (01/25/2018 11:56 AM MEDICAL LAB TECH INSTRUCTOR) Sodium, Ur 59 40 - 220 mmol/L BT MAIN-STATION 1 Potassium, Ur 10 (L) 25 - 125 mmol/L BT MAIN-STATION 1 Chloride, Ur 63 (L) 110 - 250 mmol/L BT MAIN-STATION 1 Specimen Urine Performing Organization Address [facility] Phone Number MISYS BT MAIN-STATION 1 * CREATININE, UR (01/25/2018 11:56 AM MEDICAL LAB TECH INSTRUCTOR) Creatinine, Ur 62.2 20 - 370 mg/dL BT MAIN-STATION 1 Specimen Urine Performing Organization Address [facility] Phone Number MISYS BT MAIN-STATION 1 * BASIC METABOLIC PANEL (01/25/2018 11:56 AM MEDICAL LAB TECH INSTRUCTOR) Only the most recent of 2 results [...] Afr-Am 1 Specimen Blood Performing Organization Address [facility] Phone Number MISYS BT MAIN-STATION 1 * VITAMIN B12 (01/25/2018 4:00 AM MEDICAL LAB TECH INSTRUCTOR) Only the most recent of 2 results within the time period is included. Vitamin B12 1,177 (H) 211 - 911 pg/mL BT MAIN-STATION 1 Specimen Blood Performing Organization Address [facility] Phone Number MISYS BT MAIN-STATION 1 * LACTIC ACID (01/25/2018 4:00 AM MEDICAL LAB TECH INSTRUCTOR) Only the most recent of 2 results within the time period is included. Lactic Acid 1.2 0.5 - 2.2 mmol/L BT MAIN-STATION 1 Specimen Blood Performing Organization Address [facility] Phone Number MISYS BT MAIN-STATION 1 * HEPATITIS PANEL (01/25/2018 4:00 AM MEDICAL LAB TECH INSTRUCTOR) HCV IgG Negative NEG BT MAIN-STATION 3 HBsAg Negative NEG BT MAIN-STATION 3 HAV, IgM Negative NEG BT MAIN-STATION 3 HBcAb, IgM Negative NEG BT MAIN-STATION 3 Specimen Blood Performing Organization Address [facility] Phone Number [facility] * ALCOHOL (01/25/2018 4:00 AM MEDICAL LAB TECH INSTRUCTOR) Alcohol <0.010 <0.1 g/dL BT MAIN-STATION 1 Specimen Blood Performing Organization Address [facility] Phone Number [facility] BT MAIN-STATION 1 * FOLIC ACID (01/25/2018 12:00 AM MEDICAL LAB TECH INSTRUCTOR) Folic Acid 3.3 (L) 5.9 - 24.8 ng/mL BT MAIN-STATION 1 Specimen Blood Performing Organization Address [facility] Phone Number [facility] BT MAIN-STATION 1 * URINE CULTURE (01/24/2018 10:00 PM MEDICAL LAB TECH INSTRUCTOR) Spec Clean catch urine BT MICROBIOLOGY Description Order Comments None BT MICROBIOLOGY Culture No growth 3 days BT MICROBIOLOGY Report Status Final 01/28/2018 BT MICROBIOLOGY Specimen Urine clean catch - CLEAN CATCH URINE Performing Organization Address [facility] Phone Number [facility] BT MICROBIOLOG[facility] * XRAY CHEST 2 VIEWS (01/24/2018 9:37 PM MEDICAL LAB TECH INSTRUCTOR) Impressions Performed At IMPRESSION: SMS No acute thoracic abnormality. A "PRELIMINARY" report was made available via [facility] at the time of dictation by [...] Interface, Rad/Mammog In - 01/25/2018 1:33 AM MEDICAL LAB TECH INSTRUCTOR EXAMINATION: XRAY CHEST 2 VIEWS, Frontal and [...] A "PRELIMINARY" report was made available via [facility] at the time of dictation by the [...] AND PELVIS WITHOUT CONTRAST (01/24/2018 8:42 PM MEDICAL LAB TECH INSTRUCTOR) Impressions Performed At IMPRESSION: SMS 1.No acute intra-abdominal or intrapelvic CT abnormalities. 2.Diffuse hepatic steatosis. A "PRELIMINARY" report was made available via [facility] at the time of dictation by the [...] Interface, Rad/Mammog In - 01/25/2018 12:31 AM MEDICAL LAB TECH INSTRUCTOR EXAM: CT Abdomen and Pelvis WITHOUT contrast [...] A "PRELIMINARY" report was made available via [employer] at the time of dictation by the [...] MD, 01/25/2018 12:26 AM Performing Organization Address [facility] Phone Number SMS * VBG POC (01/24/2018 5:48 PM MEDICAL LAB TECH INSTRUCTOR) pH, Robert POC 7.44 (H) 7.33 - [...] mmol/L BT MAIN-STATION 1 Performing Organization Address [facility] Phone Number MISYS BT MAIN-STATION 1 * BLOOD CULTURE (01/24/2018 5:40 PM MEDICAL LAB TECH INSTRUCTOR) Only the most recent of 2 results within the time period is included. Spec Blood BT MICROBIOLOGY Description Order Comments RT AC BT MICROBIOLOGY Culture No growth 5 days BT MICROBIOLOGY Report Status Final 01/29/2018 BT MICROBIOLOGY Specimen Blood bag - BLOOD Performing Organization Address [facility] Phone Number MISYS BT MICROBIOLOGY * BMP POC (01/24/2018 11:58 AM MEDICAL LAB TECH INSTRUCTOR) CO2 POC 22 21 - 32 mmol/L [...] BT MAIN-STATION Afr-Am 1 Performing Organization Address City/State/[facility] Phone Number [facility] BT MAIN-STATION 1 * 12 LEAD EKG (01/24/2018 11:51 AM MEDICAL LAB TECH INSTRUCTOR) 12 LEAD EKG FOR [facility] Test Date:2018-01-24 Pat Name: INDRA GALVAN Department: [id number] Room: Gender: [employer] Consultant: [id number] :[phone] [phone] Requested By: BENJAMIN MACEDO Order Number: [id number] Reading MD: Shital Gonsales M.D. Measurements Intervals [place] Rate: 126 P: 70 ID: 144 QRS: 53 QRSD: 94 T:1 QT: 406 QTc:589 Interpretive Statements SINUS TACHYCARDIA ST DEVIATION AND MODERATE T-WAVE ABNORMALITY, CONSIDER INFERIOR ISCHEMIA Electronically Signed On 01-24-2018 13:58:21 MEDICAL LAB TECH INSTRUCTOR by Shital Gonsales M.D. Performing Organization Address City/State/Zipcode Phone Number SMS * HIV-1/HIV-2 ROUTINE SCREENING (01/24/2018 11:38 AM MEDICAL LAB TECH INSTRUCTOR) HIV-1/HIV-2 Negative NEG BT MAIN-STATION 4 Performing Organization Address City/State/Zipcode Phone Number MISYS BT MAIN-STATION 4 * LIVER PROFILE (01/24/2018 11:38 AM MEDICAL LAB TECH INSTRUCTOR) T Protein 7.0 6.0 - 8.3 g/dL [...] MAIN-STATION 1 * LIPASE (01/24/2018 11:38 AM MEDICAL LAB TECH INSTRUCTOR) Lipase 43 11 - 82 U/L BT MAIN-STATION 1 Specimen Blood Performing Organization Address City/State/Zipcode Phone Number MISYS BT MAIN-STATION 1 after 05/26/2017 Insurance Type Payer Benefit Subscriber ID Effective Phone Address Plan / Dates Group BC/BS BC/BS PPO xxxxxxxxxxxx 2017-P [phone] [address] [place] [address] Advance Directives For more information, please contact: [address] [address] Date Inactivated Comments Code Status Date Activated 01/28/2018 3:20 PM Full Code 01/24/2018 10:54 PM
[2018-05-27] MEDS: ALBUTEROL SULF 0.083% NEB SOLN 3 ML NEB NEB SCH ×3 (18:30→23:45)
[2018-05-27] MEDS: CEFTAROLINE FOSAMIL ACETATE 600 MG in SODIUM CHLORIDE 0.9% 250ML 250 ML IV SCH (18:53)
[2018-05-27 18:55] LABS: EOSINOPHILS % (MANUAL) 2 % (0-7); LYMPHOCYTES % (MANUAL) 2 % (19-48); MONOCYTES % (MANUAL) 12 % (3.4-9.0); NEUTROPHILS % (MANUAL) 84 % (40-74); PLATELET ESTIMATE ADEQUATE; PLATELET MORPHOLOGY COMMENT FEW LARGE; RBC MORPHOLOGY COMMENT NORMAL
--- NOTE | 2018-05-27 19:59 | Diagnostic Imaging Report ---
EXAM: Right Upper Quadrant Ultrasound INDICATION: Right upper quadrant pain and jaundice COMPARISON: None TECHNIQUE: Transverse and longitudinal images of the right upper abdomen were obtained. FINDINGS: Exam quality: Limited secondary to patient body habitus. Liver: Size: 23.3 cm in the right midclavicular line, enlarged Appearance: Increased echogenicity, smooth contour Mass: No focal masses Gallbladder: Partially collapsed. Stones/Sludge: Layering hyperechoic sludge without shadowing. Wall: 0.4 cm Appearance: No wall thickening, pericholecystic fluid or hydrops. Sonographic Cooper's Sign: Negative Bile Ducts: Intrahepatic Ducts: No dilatation Extrahepatic Ducts: Common bile duct measures 0.5 cm, no dilatation Pancreas: Nonvisualization given overlying bowel gas. Kidneys: Length: Right 10 cm Echogenicity: Normal Collecting System: No hydronephrosis Stone: None Cyst/Mass: None Vessels: Aorta: Nonvisualization given overlying bowel gas. Inferior Vena Cava: Nonvisualization given overlying bowel gas. Main Portal Vein: 1 cm, normal size with hepatopetal flow. Free Fluid: No ascites or pleural effusion IMPRESSION: 1. Limited exam with nonvisualization of the pancreas, aorta, and inferior vena cava. 2. Gallbladder sludge and slightly thickened gallbladder wall; the latter may be related to underdistention. 3. Hepatomegaly and hepatic steatosis. Signed by: Ross Staley MD on 05/27/2018 7:55 PM
[2018-05-27] MEDS: SODIUM CHLORIDE 0.9% 1000ML 1,000 ML IV SCH (20:22)
[2018-05-27] MEDS ORDERED: SODIUM CHLORIDE 0.9% 50ML 50 ML ONE (20:33)
[2018-05-27] MEDS ORDERED: IOPAMIDOL 370 MG/ML 200 ML INFUS..BTL INJ ONE (20:34)
--- NOTE | 2018-05-27 20:43 | Diagnostic Imaging Report ---
EXAMINATION: CT of the abdomen and pelvis with contrast. CLINICAL HISTORY:Right upper quadrant abdominal pain COMPARISON: Right upper quadrant ultrasound 05/27/2018. Abdominal CT dated 02/14/2013 TECHNIQUE: Spiral CT images of the abdomen and pelvis were performed from the lung bases to the lesser trochanters after the intravenous administration of 150 cc of Omnipaque 300. Positive oral contrast was deferred. Coronal and sagittal reformatted images were obtained. DISCUSSION: ABDOMEN/PELVIS: LOWER THORAX:Bibasilar atelectasis. HEPATOBILIARY: Liver is enlarged measuring 23.3 cm in the midclavicular line. Geographic hepatic hypodensity. Smooth contour without focal hepatic lesion. No intra or extrahepatic biliary ductal dilation. GALLBLADDER: Layering hyperdensity suggestive of sludge is seen in comparison right upper quadrant abdominal ultrasound. Mild circumferential gallbladder wall thickening may be related to underdistention. SPLEEN: Moderate splenomegaly, measuring 14.9 cm in length. PANCREAS: No focal masses or ductal dilatation. ADRENALS: No adrenal nodules. KIDNEYS/URETERS: No hydronephrosis, stones, or solid mass lesions. PELVIC ORGANS/BLADDER: The bladder is normal. PERITONEUM/RETROPERITONEUM: Small volume abdominal ascites within the subhepatic space, paracolic gutters, and peritoneum. LYMPH NODES: A prominent 1.4 cm periportal node (series 2, image 36). Otherwise, no intra-abdominal, retroperitoneal, pelvic or inguinal lymphadenopathy which meet CT size criteria. Mildly prominent peritoneal nodes. VESSELS: The celiac trunk,superior and inferior mesenteric and bilateral renal arteries are patent The portal, superior mesenteric and splenic veins are patent. GI TRACT: No distention or wall thickening. BONES AND SOFT TISSUE: No bony destructive lesions. Scattered degenerative changes. No soft tissue abnormalities. IMPRESSION: Enlarged hypodense liver, splenomegaly, and small volume abdominal ascites; findings are non-specific but the constellation is concerning for hepatic steatosis possibly with steatohepatitis. Partially collapsed gallbladder with gallbladder sludge and mild wall thickening, the latter may be related to underdistention and/or a secondary process such as hypoproteinemia. Signed by: Ross Staley MD on 05/27/2018 8:40 PM
[2018-05-27] MEDS: IPRATROPIUM BROMIDE 0.02% 2.5 ML NEB NEB SCH (23:45)
[2018-05-27] MEDS ORDERED: NIFEDIPINE ER30 M1 PO (23:49)
[2018-05-27] MEDS ORDERED: HYDROCHLOROTHIA25 MG (23:49)
[2018-05-27] MEDS ORDERED: TRAZODONE HCL50 MG PO (23:49)
[2018-05-27] MEDS ORDERED: FOLIC ACID1 MG PO (23:49)
[2018-05-28] VITALS (10 sets, daily range): BP systolic 110–122; BP diastolic 58–65
--- NOTE | 2018-05-28 00:44 | NUR ---
Pt received from ER. Pt A&O and in no apparent distress. Pt skin and eyes jaundice in color. Pt on tele #3 and RA. All safety measures ensured and pt call aquino near. Pt encouraged to use call aquino for assistance.
--- NOTE | 2018-05-28 01:20 | NUR ---
Pt took own med Trazodone 50mg po to help with sleep and pt also put on 2LNC to help with occasional feeling of shortness of breath. Pt 02 sats currently 93-94% on RA.
[2018-05-28] MEDS: ALBUTEROL SULF 0.083% NEB SOLN 3 ML NEB NEB SCH ×6 (03:00→22:25)
[2018-05-28] MEDS ORDERED: SODIUM CHLORIDE 0.9% 250ML 250 ML ONE (05:51)
[2018-05-28] MEDS: SODIUM CHLORIDE 0.9% 1000ML 1,000 ML IV SCH ×3 (05:55→18:10)
[2018-05-28] MEDS: CEFTAROLINE FOSAMIL ACETATE 600 MG in SODIUM CHLORIDE 0.9% 250ML 250 ML IV SCH ×2 (05:56→18:15)
--- NOTE | 2018-05-28 06:10 | NUR ---
Pt off unit for radiology
--- NOTE | 2018-05-28 06:20 | NUR ---
Pt returned to unit
--- NOTE | 2018-05-28 06:29 | Diagnostic Imaging Report ---
EXAMINATION: PA and lateral views of the chest. COMPARISON: May 27, 2018 CLINICAL HISTORY: Shortness of breath DISCUSSION: Lines/tubes: None. Lungs: Mildly increased airspace opacities may reflect atelectasis or pneumonia. Pleura: No pleural effusion or pneumothorax. Heart and mediastinum: The cardiomediastinal silhouette is normal. Bones and soft tissues: No acute bony abnormalities. IMPRESSION: Mildly increased scattered airspace opacities may reflect atelectasis or pneumonia. Signed by: Dr. Cezar Mathew M.D. on 05/28/2018 6:26 AM
--- NOTE | 2018-05-28 06:56 | NUR ---
RECEIVED PATIENT RESTING IN BED, NO ACUTE DISTRESS NOTED, RESPIRATIONS EVEN AND UNLABORED. CALL LIGHT WITHIN REACH. BED IN THE LOWEST POSITION.
--- NOTE | 2018-05-28 07:01 | NUR ---
report given to oncoming nurse
--- NOTE | 2018-05-28 07:10 | NUR ---
consult orders given to community support professional to f/u on being called.
[2018-05-28] MEDS: IPRATROPIUM BROMIDE 0.02% 2.5 ML NEB NEB SCH ×3 (07:15→18:30)
[2018-05-28 07:35] LABS: BASOPHILS # (AUTO) 0.1 (0.0-0.1); BASOPHILS % 0.5 % (0.0-1.0); EOSINOPHILS # (AUTO) 0.2 (0.0-0.4); EOSINOPHILS % 1.1 % (0.0-6.0); HEMATOCRIT 29.7 % (38.2-49.6); HEMOGLOBIN 10.5 g/dL (14.0-18.0); LYMPHOCYTES # (AUTO) 1.5 (1.0-3.2); LYMPHOCYTES % 7.8 % (18.0-39.1); MEAN CORPUSCULAR HGB CONC 35.4 g/dL (31-35); MEAN CORPUSCULAR VOLUME 101.7 fL (81-99); MONOCYTES # (AUTO) 1.8 (0.2-0.8); MONOCYTES % 9.9 % (4.4-11.3); NEUTROPHILS # (AUTO) 14.7 (2.1-6.9); NEUTROPHILS % 79.3 % (38.7-80.0); PLATELET COUNT 302 x10e3/uL (140-360); RED BLOOD COUNT 2.92 x10e6/uL (4.3-5.7); RED CELL DISTRIBUTION WIDTH 12.6 % (11.7-14.4)
[2018-05-28 07:45] LABS: ALANINE AMINOTRANSFERASE 28 IU/L (0-55); ALBUMIN 2.1 g/dL (3.5-5.0); ALBUMIN/GLOBULIN RATIO 0.4 (0.8-2.0); ALKALINE PHOSPHATASE 138 IU/L (40-150); ANION GAP 13.1 mmol/L (8-16); BLOOD UREA NITROGEN 6 mg/dL (7-26); BUN/CREATININE RATIO 7 (6-25); CALCIUM 8.2 mg/dL (8.4-10.2); CARBON DIOXIDE 33 mmol/L (22-29); CHLORIDE 79 mmol/L (98-107); CREATININE, SERUM 0.85 mg/dL (0.72-1.25); EST GLOMERULAR FILTRATION RATE > 60 ML/MIN (60-); GLUCOSE 146 mg/dL (74-118); SODIUM 123 mmol/L (136-145)
--- NOTE | 2018-05-28 08:01 | NUR ---
PATIENT'S TEMP OF 100.5, APPLIED COLD COMPRESSES TO UNDER ARMS.
[2018-05-28 08:06] LABS: POTASSIUM 2.1 mmol/L (3.5-5.1)
--- NOTE | 2018-05-28 08:09 | NUR ---
PAGED DR. DUMAS FOR CRITICAL POTASSIUM OF 2.1 AND SODIUM LEVEL OF 123. WAITING HEADWAITRESS BACK.
[2018-05-28] MEDS: NIFEDIPINE CR 30 MG TAB PO SCH ×2 (09:00→16:47)
[2018-05-28] MEDS ORDERED: HYDROCHLOROTHIAZIDE 25 MG TAB PO SCH (09:00)
[2018-05-28 09:07] LABS: AMYLASE 24 U/L (25-125); LIPASE 28 U/L (8-78)
[2018-05-28] MEDS: POTASSIUM CHLORIDE 20MEQ/100ML 100 ML IV SCH ×4 (09:24→16:47)
[2018-05-28] MEDS: FOLIC ACID 1 MG TAB PO SCH (09:24)
[2018-05-28] MEDS: LEVOFLOXACIN 500MG/D5W 100ML 100 ML IV SCH (11:17)
--- NOTE | 2018-05-28 11:54 | NUR ---
PAGED DR. DUMAS TO NOTIFY OF ELEVATED TEMP OF 100.5, AND TO GET ORDERS FOR MEDICATION.
--- NOTE | 2018-05-28 12:42 | Consultation ---
DATE OF CONSULTATION: 05/28/2018 Pulmonary Consultation REASON FOR CONSULT: Possible pneumonia. HISTORY OF PRESENT ILLNESS: Mr. Galvan is a 37-year-old male, who has a history of alcohol, who presented to the emergency room with complaints of congestion and cough going on for last three weeks, progressively getting worse. 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 He denies any history of smoking. He is obese. He has never been told that he has sleep apnea. He is . Recently, he got his son over the weekend and he was sick as well. He had a fever of 102 and was having dyspnea on exertion and sweating episode when he was in the emergency room. He denies any complaints of chest pain, nausea, or vomiting. Eyes are mildly jaundiced. Chest x-ray done in the emergency room showed some scattered airspace opacities, but not very clear-cut consolidation. I have reviewed the CT abdomen and pelvis, the lower cuts show possibility of atelectasis versus pneumonia and it is also showing a fatty liver. REVIEW OF SYSTEMS: GENERAL: Having fever and chills. HEAD: Denies any head trauma. ENT: Denies any earaches. CVS: Denies any chest pain. RESPIRATORY: Shortness of breath. GI: Denies any nausea or vomiting. Rest of the review of systems are negative except as in HPI. PAST MEDICAL HISTORY: Obesity and hypertension. PAST SURGICAL HISTORY: None. 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 He lives by himself and sometimes with his mother and probably . He does not smoke. Drinks 4 to 5 drinks every day. PHYSICAL EXAMINATION: VITAL SIGNS: Temperature 100.5, T-max of 101.4, heart rate of 100, respiratory rate 18, blood pressure 118/64, and O2 saturation 97% on 2 L. HEENT: Head is atraumatic, normocephalic. NECK: Supple. CHEST: Decreased air entry bilaterally. HEART: S1 and S2 audible. ABDOMEN: Soft, nontender. EXTREMITIES: No pedal edema. NEUROLOGIC: Awake and alert. LABS: White count of 21,000 down to 18,000 now; hemoglobin 10.5; and platelets 302. Chemistry; sodium 126, potassium 2.2, chloride 77, BUN 7, creatinine 0.98. Lactic acid was 26.5 when he came in, BNP 221, alkaline phosphatase 157, AST 112, total bilirubin 14.3. Gallbladder ultrasound showing hepatomegaly and hepatic steatosis. Blood cultures pending ASSESSMENT AND PLAN: Mr. Galvan is a 37-year-old male, morbidly obese, came in with cough, wheezing, high-grade fever, abnormal liver function tests, hyponatremia, and hyperbilirubinemia along with abnormal liver function test. Chest x-ray showing multiple small infiltrates, but no areas of consolidation. 1. Possible pneumonia with hyponatremia and abnormal liver function tests. Legionella and atypical organisms are possibility. I will check urine Legionella antigen. Add doxycycline to the ceftaroline, which has been started in the emergency room. 2. Start the patient on IV hydration for hyponatremia, likely dehydrated. 3. Repeat lactic acid. Initial lactic acid was 26.5 and the patient has sepsis possibly due to pneumonia. 4. ID consultation has been called. We will follow the recommendations. 5. Continue the patient on nebulizer treatment. 6. CT chest without contrast to further evaluate the lungs for pneumonia. The patient has history of alcohol abuse. Currently, does not seem that he is in withdrawal; however, he may need withdrawal precautions later on. 7. Severe hypokalemia. Replace potassium. 8. We will discontinue HCTZ, likely cause of hyponatremia. Follow the blood cultures. Thank you for this consult. Critical care time spent50 minutes. MD SOFÍA Haynes/SINDI /[id number]
--- NOTE | 2018-05-28 13:12 | Diagnostic Imaging Report ---
EXAMINATION: CT scan of the chest without contrast. TECHNIQUE: Spiral CT images of the chest were performed from the lung apices to the level of the adrenal glands. No intravenous contrast was administered per referring physician request. Coronal and sagittal reformatted images were obtained. COMPARISON: CT abdomen and pelvis from 05/27/2018, single view chest radiograph CLINICAL HISTORY:Shortness of breath x1 week, worse when lying flat DISCUSSION: ABSENCE OF INTRAVENOUS CONTRAST DECREASES SENSITIVITY FOR DETECTION OF FOCAL LESIONS AND VASCULAR PATHOLOGY. LINES/TUBES: None. LUNGS AND AIRWAYS: Linear and bandlike opacities in the lower lobes compatible with subsegmental atelectasis. Scattered groundglass opacities with a tree-in-bud configuration in the right upper lobe for example on series 3 image 40 and series 3 image 57 and in the left upper lobe on series 3 image 53. Similar, though less extensive groundglass and reticular opacities in the lung bases. 5 mm groundglass nodule laterally within the left upper lobe seen on series 3 image 52. No gross mass lesion or bronchiectasis. Trachea, mainstem bronchi, and central lobar and segmental bronchi are patent. PLEURA: No pneumothorax or pleural effusions. HEART AND MEDIASTINUM: Visualized portions of the thyroid gland appear normal. No ectasia or aneurysmal dilatation of the thoracic aorta. Atherosclerotic calcification of the left anterior descending coronary artery. No pericardial effusion. Pulmonary outflow tract is of normal caliber. LYMPH NODES: There is no mediastinal, hilar or axillary lymphadenopathy. ABDOMEN: Hepatic parenchyma is diffusely hypoattenuating compatible with steatosis. Visualized portions of the spleen, pancreatic tail, and left adrenal gland are unremarkable. BONES AND SOFT TISSUES: No acute bony abnormalities. IMPRESSION: Scattered bilateral upper lobe tree-in-bud nodules compatible with atypical infection. Bandlike subsegmental atelectasis in the dependent lower lobes. 5 mm groundglass nodule in the left upper lobe is likely infectious or inflammatory. Follow-up CT scan of the chest in one year is suggested if the patient is at high risk of malignancy. Atherosclerotic calcification left anterior descending coronary artery. Hepatic steatosis. Signed by: Dr. Oscar Cui M.D. on 05/28/2018 1:08 PM
--- NOTE | 2018-05-28 15:05 | NUR ---
Visit made by the Spiritual Care Department Pastoral Visitor, Rosa Her. PV provided pastoral presence, prayer, hospitality, and supportive listening. Pastoral Visitor informed pt/family of the scope of [employer] and availability. BENTON ALBA Cdl [employer] Spiritual Care Department O: [phone] Pager: [phone] ([phone] calling from)
[2018-05-28 17:13] LABS: HIV 1&2 AB SCREEN NON-REACTIVE (NONREACTIVE)
[2018-05-28] MEDS: IBUPROFEN 400 MG TAB PO PRN ×2 (18:13→23:50)
--- NOTE | 2018-05-28 19:14 | NUR ---
REPORT GIVEN TO ONCOMING NURSE, WALKING ROUNDS DONE. PATIENT IS RESTING IN BED IN STABLE CONDITION, NO ACUTE DISTRESS NOTED. VISITOR AT BEDSIDE. CALL LIGHT WITHIN REACH. BED IN THE LOWEST POSITION.
--- NOTE | 2018-05-28 19:15 | NUR ---
patient received awake, alert, lying quietly in bed. no c/o pain noted. 04/02l/ hf nc in use. respirations even and unlabored. pm assessment complete. patient instructed to call for assistance when needed.
[2018-05-28] MEDS ORDERED: POTASSIUM CHLORIDE 20 MEQ TAB CR PO STA (19:49)
--- NOTE | 2018-05-28 19:50 | NUR ---
repeat K+ 2.9 called to . new kcl orders noted and repeat labs in am.
[2018-05-28] MEDS: TRAZODONE HCL 50 MG TAB PO SCH (21:00)
--- NOTE | 2018-05-28 22:58 | Consultation ---
DATE OF CONSULTATION: 05/28/2018 REASON FOR CONSULTATION: Fever, chills, nausea, vomiting, cough. HISTORY OF PRESENT ILLNESS: This patient, who is a very pleasant 37-year-old white male, denies past medical history, drinks about 4 drinks a day, comes into the emergency room with 2 weeks of fever, chills, nausea, vomiting, originally cough and shortness of breath. 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 He does have a history of obesity. He is . He comes in with fever, chills, shortness of breath. He comes into the emergency room. He had a chest x-ray that shows scattered opacities. CAT scan was done, shows atelectasis versus pneumonia. The patient is being admitted. He is currently lying in bed. He said he has been sick for the last couple of weeks. PAST MEDICAL HISTORY: Denies. PAST SURGICAL HISTORY: Denies. 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 No smoking or drug abuse. He does drink though, 4 drinks a day cocktail. REVIEW OF SYSTEMS: HEENT: There is no headache, visual changes, or hearing changes. GI: There is no nausea, no vomiting, no diarrhea currently. CARDIAC: There is no arrhythmia. NEURO: No seizure activity. SKIN: There is no other rashes. EXTREMITIES: No edema or erythema or pain. The patient was admitted. He received doses of erythromycin, ceftaroline, ceftriaxone, and levofloxacin. I was asked to see him. LABORATORY DATA: Sodium 123, potassium of 2.1, creatinine 0.85. Lactic acid 26. White count was 21.3, hemoglobin 11, hematocrit 33. His laboratory data reviewed. Chest x-ray reviewed. CAT scan reviewed. PHYSICAL EXAMINATION: GENERAL: He is currently alert, oriented, does not seem to be in acute distress. VITAL SIGNS: Stable. Currently afebrile. HEENT: He is not icteric. NECK: Supple. CHEST: Few crackles at the bases. COR: S1 and S2. No S3, S4, or murmurs. ABDOMEN: Soft. Bowel sounds present. No tenderness. EXTREMITIES: No edema. SKIN: No rash. IMPRESSION: Shortness of breath and cough, fever, atypical pneumonia noted. He is currently on Levaquin and ceftaroline. Continue with the same for the time being; however, I am concerned about human immunodeficiency virus and Pneumocystis carinii pneumonia. We will check HIV. Obtain blood cultures. Obtain urine Legionella antigen. We will follow up with the cultures. Further recommendations to follow. MD ERIC Bustamante/SINDI /[id number]
[2018-05-29] VITALS (19 sets, daily range): BP systolic 96–131; BP diastolic 47–84
[2018-05-29] MEDS ORDERED: POTASSIUM CHLORIDE 20 MEQ TAB CR PO ONE
--- NOTE | 2018-05-29 | NUR ---
here to see patient. new orders noted. banana bag started at 50cc/hr per orders. ns stopped while banana bag is infusing. no c/o pain noted at this time.
[2018-05-29 00:05] LABS: INR 1.17; PROTHROMBIN TIME 15.5 seconds (11.9-14.5)
[2018-05-29] MEDS ORDERED: THIAMINE HCL INJ 100 MG/ML 2ML VIAL ONE (00:37)
[2018-05-29] MEDS ORDERED: MULTIVITAMINS INJECTION ONE (00:37)
[2018-05-29] MEDS ORDERED: FOLIC ACID 5 MG/ML VIAL ONE (00:37)
[2018-05-29] MEDS: MULTIVITAMINS- 12 INJECTION 10 ML, FOLIC ACID MDV 5 MG, THIAMINE HCL INJ 100 MG in SODI... IV SCH ×2 (00:45→21:29)
[2018-05-29] MEDS: ALBUTEROL SULF 0.083% NEB SOLN 3 ML NEB NEB SCH ×2 (02:14→07:00)
[2018-05-29] MEDS: IPRATROPIUM BROMIDE 0.02% 2.5 ML NEB NEB SCH ×2 (02:14→07:00)
[2018-05-29] MEDS: SODIUM CHLORIDE 0.9% 1000ML 1,000 ML IV SCH ×2 (03:26→11:18)
[2018-05-29] MEDS: CEFTAROLINE FOSAMIL ACETATE 600 MG in SODIUM CHLORIDE 0.9% 250ML 250 ML IV SCH (05:06)
[2018-05-29 06:18] LABS: BASOPHILS # (AUTO) 0.1 (0.0-0.1); BASOPHILS % 0.5 % (0.0-1.0); EOSINOPHILS # (AUTO) 0.3 (0.0-0.4); EOSINOPHILS % 1.3 % (0.0-6.0); HEMATOCRIT 29.1 % (38.2-49.6); LYMPHOCYTES # (AUTO) 1.3 (1.0-3.2); LYMPHOCYTES % 6.6 % (18.0-39.1); MEAN CORPUSCULAR HEMOGLOBIN 35.7 pg (28-32); MEAN CORPUSCULAR HGB CONC 34.4 g/dL (31-35); MEAN CORPUSCULAR VOLUME 103.9 fL (81-99); MONOCYTES # (AUTO) 1.8 (0.2-0.8); MONOCYTES % 9.1 % (4.4-11.3); NEUTROPHILS # (AUTO) 15.7 (2.1-6.9); NEUTROPHILS % 80.9 % (38.7-80.0); PLATELET COUNT 281 x10e3/uL (140-360); RED CELL DISTRIBUTION WIDTH 12.8 % (11.7-14.4)
[2018-05-29 06:38] LABS: ALANINE AMINOTRANSFERASE 27 IU/L (0-55); ALBUMIN 2.1 g/dL (3.5-5.0); ALBUMIN/GLOBULIN RATIO 0.5 (0.8-2.0); ALKALINE PHOSPHATASE 137 IU/L (40-150); ANION GAP 13.6 mmol/L (8-16); BLOOD UREA NITROGEN 6 mg/dL (7-26); BUN/CREATININE RATIO 7 (6-25); CALCIUM 7.9 mg/dL (8.4-10.2); CARBON DIOXIDE 29 mmol/L (22-29); CHLORIDE 88 mmol/L (98-107); CREATININE, SERUM 0.84 mg/dL (0.72-1.25); EST GLOMERULAR FILTRATION RATE > 60 ML/MIN (60-); GLUCOSE 129 mg/dL (74-118); SODIUM 128 mmol/L (136-145)
[2018-05-29 06:44] LABS: POTASSIUM 2.6 mmol/L (3.5-5.1)
[2018-05-29 07:04] LABS: LYMPHOCYTES % (MANUAL) 6 % (19-48); MONOCYTES % (MANUAL) 6 % (3.4-9.0); MYELOCYTES % (MANUAL) 1 % (0-0); NEUTROPHILS % (MANUAL) 87 % (40-74)
[2018-05-29 07:06] LABS: % IRON SATURATION 53 % (15-50); HYPOCHROMASIA SLIGHT; IRON 61 ug/dL (65-175); PLATELET ESTIMATE ADEQUATE; PLATELET MORPHOLOGY COMMENT NORMAL; RBC MORPHOLOGY COMMENT NORMAL; TOTAL IRON BINDING CAPACITY 116 ug/dL (261-478); TRANSFERRIN 83 mg/dL (174-364)
--- NOTE | 2018-05-29 07:25 | NUR ---
Pt called stating "I feel like I'm working too hard to breathe." Saturation 89% to 91% on 9L high flow nasal canula. Respiratory called. Placed Pt on 100% NRB. Pt is sating at 100%. Dr Husain called. Will follow up
[2018-05-29] MEDS: NIFEDIPINE CR 30 MG TAB PO SCH ×2 (07:29→17:29)
[2018-05-29] MEDS: FOLIC ACID 1 MG TAB PO SCH (07:29)
--- NOTE | 2018-05-29 07:45 | NUR ---
Dr Husain notified of pt's status. Transfer to [facility] ordered, and CXR. chest painting and sealing supervisor notified. Will monitor
--- NOTE | 2018-05-29 08:04 | Diagnostic Imaging Report ---
EXAMINATION: CHEST SINGLE (PORTABLE) INDICATION: Shortness of breath. COMPARISON: CT chest 05/28/2018 and chest radiograph 05/28/2018. FINDINGS: TUBES and LINES: None. LUNGS: Low lung volumes with mild perihilar and interstitial opacities. Increasing patchy opacities in the lower lungs. PLEURA: No pleural effusion or pneumothorax. HEART AND MEDIASTINUM: The cardiomediastinal silhouette is unremarkable. BONES AND SOFT TISSUES: No acute osseous abnormality. UPPER ABDOMEN: No free air under the diaphragm. IMPRESSION: Low lung volumes, cannot exclude mild pulmonary interstitial edema. Increasing patchy opacities in the lower lungs may represent atelectasis or pneumonia in the appropriate clinical setting. Signed by: Dr. Yvette Harris MD on 05/29/2018 8:01 AM
[2018-05-29 08:07] LABS: FOLATE 30.1 ng/mL (7.0-15.4)
--- NOTE | 2018-05-29 08:24 | NUR ---
Pt transferred to ICU 190. Handoff given to ICU nurse. Emotional support given to pt.
[2018-05-29] MEDS ORDERED: POTASSIUM CHLORIDE 20MEQ/100ML 100 ML IV ONE ×2 (08:30→11:30)
[2018-05-29] MEDS ORDERED: FUROSEMIDE INJ 10 MG/ML 4 ML VIAL IV NR (09:00)
[2018-05-29] MEDS ORDERED: VANCOMYCIN 1GM/NS 250 ML 250 ML IV ONE (09:30)
[2018-05-29] MEDS ORDERED: BENZONATATE 100 MG CAP PO PRN (09:45)
[2018-05-29 09:57] LABS: ABG HCO3 30 mmol/L (23-28); ABG PCO2 37 mmHg (41-51); ABG PH 7.52 (7.31-7.41); ABG PO2 118 mmHg (80-105)
[2018-05-29] MEDS: ALBUTEROL/IPRATROPIUM 3 ML NEB NEB SCH ×3 (10:35→19:25)
[2018-05-29] MEDS: LEVOFLOXACIN 500MG/D5W 100ML 100 ML IV SCH (11:00)
[2018-05-29] MEDS ORDERED: AZITHROMYCIN 500MG/NS 250 ML 250 ML IV SCH (11:30)
[2018-05-29] MEDS: SPIRONOLACTONE 25 MG TAB PO SCH (11:34)
--- NOTE | 2018-05-29 11:41 | Progress Note ---
DATE: 05/29/2018 SUBJECTIVE: Mr. Galvan is a 37-year-old man with a history of hypertension and alcohol abuse, came to the emergency room complaining of abdominal pain, nausea, cough, and fever. He was found to have multilobar pneumonia and alcoholic hepatitis. His sodium and potassium have been very low. He started having shortness of breath and low oxygen today, so he had to be transferred to ICU. OBJECTIVE: GENERAL: He is awake and alert. He is getting a breathing treatment. We just got an ABG from him. VITAL SIGNS: Temperature is 98.3 and blood pressure is 123/76. HEART: Regular rate. LUNGS: Bilateral crackles. ABDOMEN: Distended. No tenderness. LABORATORY DATA: On the blood work; potassium is 2.6, creatinine is 0.84, sodium is 128, and glucose is 129. White count is 19.3, hemoglobin is 10, and hematocrit is 29.1. Blood cultures are pending, so far negative. Chest CT shows scattered bilateral upper lobe tree-in-bud nodules compatible with atypical infection and hepatic steatosis. ASSESSMENT: On this patient: 1. Acute respiratory failure. The patient was transferred to ICU. 2. Multilobar pneumonia, on IV antibiotics. 3. Alcoholic hepatitis. 4. Ethyl alcohol abuse. 5. Hyponatremia. 6. Hypokalemia. PLAN: Plan at present time is to continue to monitor respiratory status. We are awaiting for ABG results and chest x-ray results. Continue IV antibiotics. Continue banana bag. All this was discussed with the patient. All questions were answered to satisfaction. Prognosis is guarded. MD NANCY Castano/MODL /[id number]
[2018-05-29] MEDS ORDERED: CEFTRIAXONE SOD 2 GM/NS 100 ML 100 ML IV SCH (12:00)
--- NOTE | 2018-05-29 13:27 | Consultation ---
DATE OF CONSULTATION: 05/29/2018 HISTORY OF PRESENT ILLNESS: The patient is a 37-year-old male, who presents with complaints of cough and fever, which he has had for about two weeks. He was noted to be jaundiced and also was found to have thickened gallbladder with some sludge on imaging. The patient has had some mild epigastric pain, but none now. He is on a diet, which he tolerated without problem. He is being treated for pneumonia. He is concerned he may have some atypical type of pneumonia. PAST MEDICAL HISTORY: Significant for alcohol use and hypertension. PAST SURGICAL HISTORY: He has not had previous surgeries. ALLERGIES: THERE WERE NO KNOWN ALLERGIES. MEDICATIONS: There were no chronic medications. FAMILY HISTORY: Noncontributory. SOCIAL HISTORY: As stated above. He drinks alcohol. Does not smoke cigarettes. REVIEW OF SYSTEMS: As stated above. He says shortness of breath and cough. No definite fever. PHYSICAL EXAMINATION: GENERAL: The patient is awake, alert, in no distress. VITAL SIGNS: Heart rate is 108, blood pressure is normal, and O2 saturation is 98% at this time on supplemental oxygen. HEENT: Reveals scleral icterus. NECK: No masses. LUNGS: Equal breath sounds, are clear. CARDIAC: Tachycardic, but otherwise not regular rate and rhythm with no murmur. ABDOMEN: Soft. There was no tenderness. There was no mass. There were no signs of peritonitis. No organomegaly. EXTREMITIES: Slight edema. NEUROLOGIC: Grossly intact. LABS: White blood cell today is 19,000, hemoglobin 10, and hematocrit 29. Chemistries; potassium is 2.6, BUN and creatinine are normal. The bilirubin was 11.9 while the remaining liver function tests were essentially normal. Bilirubin is down from admission where it was as high as 14. ASSESSMENT: A 37-year-old male with symptoms of pneumonia, possibly viral syndrome with possible acute hepatitis. I do not think this was a gallbladder problem and I do not think there were any indications for surgical intervention at this time. At this point, just recommend followup imaging once the patient is recovered from the acute illness. There are no signs of acute surgical abdomen. No findings that warrant immediate surgical intervention. Thank you for asking me to see Mr. Galvan. MD AGUSTIN Fink/SINDI /[id number]
[2018-05-29 16:23] LABS: ANION GAP 12.3 mmol/L (8-16); BLOOD UREA NITROGEN 5 mg/dL (7-26); BUN/CREATININE RATIO 6 (6-25); CARBON DIOXIDE 30 mmol/L (22-29); CHLORIDE 87 mmol/L (98-107); CREATININE, SERUM 0.89 mg/dL (0.72-1.25); EST GLOMERULAR FILTRATION RATE > 60 ML/MIN (60-); GLUCOSE 143 mg/dL (74-118); POTASSIUM 3.3 mmol/L (3.5-5.1); SODIUM 126 mmol/L (136-145)
[2018-05-29] MEDS: IBUPROFEN 400 MG TAB PO PRN (17:30)
--- NOTE | 2018-05-29 17:34 | Consultation ---
DATE OF CONSULTATION: 05/29/2018 REASON FOR CONSULTATION: Persistent hypokalemia. HISTORY OF PRESENT ILLNESS: A 37-year-old male with history of hypertension and alcohol abuse, presented to [facility] with congestion and cough for approximately 3 weeks. The patient states that he had been drinking heavily daily. He developed diarrhea as well as congestion with cough and not been eating well. He became febrile with fever of 102, was having dyspnea on exertion and presented to the emergency room. The patient was admitted with pneumonia, started on antibiotics. Pulmonary and Infectious Disease were consulted. The patient when arrived was severely hypokalemic and despite replacement, he remained hypokalemic. The patient became short of breath, was transferred to the ICU, placed on the BiPAP for worsening shortness of breath. He was noted to be on hydrochlorothiazide, which was discontinued and Nephrology consultation was called. REVIEW OF SYSTEMS: The patient currently on BiPAP ; however, positive for fevers and chills. Positive for diarrhea. Positive shortness of breath. No chest pain. No nausea or vomiting. All other systems negative. PAST MEDICAL HISTORY: 1. Hypertension. 2. Alcohol abuse. PAST SURGICAL HISTORY: None. SOCIAL HISTORY: Drinks 4 to 5 drinks daily. 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 FAMILY HISTORY: No family history of kidney disease. ALLERGIES: NO KNOWN DRUG ALLERGIES. CURRENT MEDICATIONS: See list. Lasix x1 was given. Multiple doses of potassium chloride. Hydrochlorothiazide was discontinued. PHYSICAL EXAMINATION: VITAL SIGNS: Blood pressure 114/77, pulse 105, respiratory rate 28, and temperature 99.1. GENERAL: No apparent distress. HEENT: Oropharynx is clear. BiPAP in place. Positive scleral icterus. NECK: Supple. No elevation in jugular venous pressure. No lymphadenopathy. CHEST: Rhonchi anteriorly bilaterally. CARDIOVASCULAR: Regular rhythm. Tachycardic. No murmurs, rubs, or gallops. ABDOMEN: Soft. Positive bowel sounds. No tenderness. No rebound. EXTREMITIES: 2+ pitting edema. No clubbing. No cyanosis. SKIN: Warm. LABORATORY DATA: Sodium 128, potassium 2.6, chloride 88, CO2 29, creatinine 0.84, glucose 129, iron saturation 53, total bilirubin 11.9, albumin 2.1. White count 19, hemoglobin 10, hematocrit 29.1, and platelets 281. Chest x-ray, increasing patchy opacities in the lower lungs, may represent atelectasis or pneumonia. ASSESSMENT AND PLAN: 1. Hypokalemia, suspect multifactorial including being on diuretic, alcohol abuse, poor p.o. intake, and diarrhea. Suspect the patient is total volume depleted and may take few days to correct as the potassium will shift intracellular. 2. Hyponatremia due to hydrochlorothiazide. We will place the patient on fluid restriction and raise sodium no faster than 0.25 millimoles/L per hour. 3. Volume overload. We will add spironolactone. We will also help with his hypokalemia. 4. Pneumonia. Continue antibiotics per Pulmonary Critical Care. 5. Alcoholic hepatitis. Discussed the importance of stopping alcohol. Continue with multivitamin, folic acid, and thiamine. MD PRUDENCE Lo/SINDI /[id number]
[2018-05-29] MEDS ORDERED: POTASSIUM CHLORIDE 20MEQ/100ML 200 ML IV ONE (18:45)
[2018-05-29] MEDS: TRAZODONE HCL 50 MG TAB PO SCH (21:29)
[2018-05-30] VITALS (18 sets, daily range): BP systolic 90–142; BP diastolic 58–92
[2018-05-30] MEDS: ALBUTEROL/IPRATROPIUM 3 ML NEB NEB SCH ×4 (01:05→11:00)
[2018-05-30 05:09] LABS: BASOPHILS # (AUTO) 0.1 (0.0-0.1); BASOPHILS % 0.3 % (0.0-1.0); EOSINOPHILS # (AUTO) 0.2 (0.0-0.4); EOSINOPHILS % 0.8 % (0.0-6.0); HEMATOCRIT 31.3 % (38.2-49.6); HEMOGLOBIN 10.6 g/dL (14.0-18.0); LYMPHOCYTES # (AUTO) 1.3 (1.0-3.2); MEAN CORPUSCULAR HEMOGLOBIN 35.7 pg (28-32); MEAN CORPUSCULAR HGB CONC 33.9 g/dL (31-35); MEAN CORPUSCULAR VOLUME 105.4 fL (81-99); MONOCYTES # (AUTO) 2.2 (0.2-0.8); MONOCYTES % 8.8 % (4.4-11.3); NEUTROPHILS # (AUTO) 20.9 (2.1-6.9); NEUTROPHILS % 83.1 % (38.7-80.0); PLATELET COUNT 313 x10e3/uL (140-360); RED BLOOD COUNT 2.97 x10e6/uL (4.3-5.7); RED CELL DISTRIBUTION WIDTH 13.2 % (11.7-14.4)
[2018-05-30 05:32] LABS: ALANINE AMINOTRANSFERASE 29 IU/L (0-55); ALBUMIN 2.1 g/dL (3.5-5.0); ALBUMIN/GLOBULIN RATIO 0.4 (0.8-2.0); ALKALINE PHOSPHATASE 149 IU/L (40-150); ANION GAP 13.4 mmol/L (8-16); BLOOD UREA NITROGEN 7 mg/dL (7-26); BUN/CREATININE RATIO 8 (6-25); CALCIUM 8.1 mg/dL (8.4-10.2); CARBON DIOXIDE 29 mmol/L (22-29); CHLORIDE 89 mmol/L (98-107); CREATININE, SERUM 0.86 mg/dL (0.72-1.25); EST GLOMERULAR FILTRATION RATE > 60 ML/MIN (60-); GLUCOSE 127 mg/dL (74-118); POTASSIUM 3.4 mmol/L (3.5-5.1); SODIUM 128 mmol/L (136-145)
[2018-05-30] MEDS: FOLIC ACID 1 MG TAB PO SCH (08:52)
[2018-05-30] MEDS: SPIRONOLACTONE 25 MG TAB PO SCH (08:52)
[2018-05-30] MEDS: NIFEDIPINE CR 30 MG TAB PO SCH ×2 (08:53→16:22)
[2018-05-30] MEDS ORDERED: FUROSEMIDE INJ 10 MG/ML 2 ML VIAL IV SCH (09:00)
[2018-05-30] MEDS ORDERED: POTASSIUM CHLORIDE 20 MEQ TAB CR PO PRN (09:00)
[2018-05-30] MEDS ORDERED: FUROSEMIDE 40 MG TAB PO NR (09:30)
[2018-05-30] MEDS ORDERED: POTASSIUM CHLORIDE 20MEQ/100ML 100 ML IV ONE (09:30)
[2018-05-30] MEDS: THIAMINE HCL 100 MG TAB PO SCH (09:39)
[2018-05-30] MEDS: MULTIVITAMINS/MINERALS TAB PO SCH (09:39)
[2018-05-30 10:30] LABS: CLARITY,URINE SL CLOUDY (CLEAR); COLOR,URINE RED (YELLOW); KETONES,URINE NEGATIVE (NEGATIVE); LEUKOCYTE ESTERASE ,URINE NEGATIVE (NEGATIVE); NITRITE,URINE POSITIVE (NEGATIVE); PROTEIN,URINE DIPSTICK TRACE (NEGATIVE); URINE UROBILINOGEN 1 mg/dL (0.2 - 1)
[2018-05-30 10:31] LABS: BILIRUBIN,URINE 3+ (NEGATIVE)
[2018-05-30 11:02] LABS: BACTERIA,URINE FEW /HPF; EPITHELIAL CELLS,URINE RARE /LPF; TRANSITIONAL EPI CELLS,URINE FEW
[2018-05-30] MEDS: VANCOMYCIN 1GM/NS 250 ML 250 ML IV SCH (11:56)
--- NOTE | 2018-05-30 12:09 | Progress Note ---
DATE: 05/30/2018 SUBJECTIVE: Mr. Galvan is a 37-year-old man with a history of hypertension and alcohol abuse, came to the emergency room complaining of cough, fever, nausea, abdominal pain. He was found to have hyponatremia, hypokalemia, multilobar pneumonia, alcoholic hepatitis. He oxygen level went down. He had to be transferred to ICU. He is on breathing mask. The O2 saturation drop when we take the oxygen from him. PHYSICAL EXAMINATION: GENERAL: He is awake and alert. VITAL SIGNS: Temperature is 99.8, blood pressure 121/67. HEART: Regular rate. LUNGS: Bilateral crackles. ABDOMEN: Distended and soft. LABORATORY DATA: On the blood work, potassium 3.4, sodium is 128, creatinine is 0.86, and glucose is 127. White count is 25.1, hemoglobin 10.6, hematocrit 31.3. chest CT shows multilobar pneumonia. ASSESSMENT: 1. Acute hypoxic respiratory failure. 2. Multilobar pneumonia. 3. Alcoholic hepatitis. 4. EtOH abuse. 5. Hyponatremia. 6. Hypokalemia. PLAN: The plan at the present time is to continue to replace potassium, fluid restriction, IV antibiotics. Continue to monitor respiratory status, may need intubation if he does not improve. The overall prognosis of the patient at present time is guarded. I spent more than 35 minutes examining the patient, reviewing overnight event, lab results and x-rays and discussing the plan of care. MD NANCY Castano/SINDI /[id number]
[2018-05-30] MEDS: MEROPENEM 500MG/ NS 50ML 50 ML IV SCH ×2 (13:00→21:17)
--- NOTE | 2018-05-30 13:30 | NUR ---
PT NOTED TO BE BREATHING 35-40'S ON BIPAP WITH ACCESSORY MUSCLE USE, PT REPORTS SOB CALLED RECEIVED ORDERS FOR INTUBATION
[2018-05-30] MEDS ORDERED: MIDAZOLAM HCL 2 MG/2 ML VIAL IV STA (13:41)
[2018-05-30] MEDS ORDERED: PROPOFOL IV EMULSION 10MG/ML 100 ML ONE (13:55)
--- NOTE | 2018-05-30 14:55 | Diagnostic Imaging Report ---
EXAM: CHEST SINGLE (PORTABLE), AP Portable DATE: 05/30/2018 Time stamp on exam: 1:47 PM INDICATION: Intubation COMPARISON: 05/29/2018 at 7:48 AM FINDINGS: LINES/TUBES: Endotracheal tube is present with its tip near the viktoria. It should be pulled back approximately 2 cm. LUNGS: Significant worsening of pulmonary opacities compatible with edema. PLEURA: No effusions or pneumothorax. HEART AND MEDIASTINUM: Normal size and contour. BONES AND SOFT TISSUES: No acute findings. IMPRESSION: 1. Endotracheal tube as described above. 2. Significant worsening of pulmonary opacities compatible with edema. Signed by: Dr. Dakota Chavez DO on 05/30/2018 2:51 PM
--- NOTE | 2018-05-30 15:44 | Diagnostic Imaging Report ---
EXAM: CHEST XRAY LINE PLACEMENT, AP Portable DATE: 05/30/2018 Time stamp on exam: 3:22 PM INDICATION: Status post right IJ central line placement and repositioning of the endotracheal tube. COMPARISON: 05/30/2018 at 1:47 PM FINDINGS: LINES/TUBES: Endotracheal tube has been pulled back with its tip at the level of the clavicles. A right IJ central line has been placed with its tip localized to the right atrium. LUNGS: Unchanged pulmonary opacities. PLEURA: No effusions or pneumothorax. HEART AND MEDIASTINUM: Heart is enlarged. BONES AND SOFT TISSUES: No acute findings. IMPRESSION: 1. Acceptable position of endotracheal tube and right IJ central line. 2. Unchanged pulmonary opacities and cardiac enlargement. Signed by: Dr. Dakota Chavez DO on 05/30/2018 3:41 PM
--- NOTE | 2018-05-30 16:33 | NUR ---
SPOKE TO NOTIFIED OF PT RESP AT 18 02 AT 91% PT BREATHING OVER VENT. PER MD REQUEST FOR POSSIBLE HIGHER LEVEL OF CARE MD STATES HE WILL TALK TO .
--- NOTE | 2018-05-30 17:28 | NUR ---
Notified Dr. Streeter of improvement of RR 16/HR 90's/O2 sat 95% on 100% FiO2. Rec'd orders to continue w/transfer downtown. Tarper notified by Sarabjit Bowers RN. Transfer process started. will continue to monitor
--- NOTE | 2018-05-30 17:34 | Diagnostic Imaging Report ---
Exam: Ultrasound guided right internal jugular vein central line placement dated 05/30/2018. History: Patient with respiratory distress in need of IV access. Comparison: None available Findings: Procedure was performed following informed consent from the person authorized to consent. Preliminary ultrasound of the right neck shows the right internal jugular vein to be patent. Image was stored to the medical record. Sterile technique was utilized with full sterile barrier technique. Local anesthesia with 1% Xylocaine was accomplished. Then under continuous sonographic guidance a 21 gauge needle was placed into the internal jugular vein followed by a 0.018 " skinny wire. A 5 Palauan micropuncture sheath was then placed and through the micropuncture sheath a 0.035 " Amplatz superstiff wire placed centrally. Dilatation with a 7 Palauan Rajesh dilator was accomplished. A 7 Palauan Arrow triple-lumen 20 cm long central line was then placed over the Amplatz wire. Each lumen was flushed with saline. Catheter secured to the skin with 3-0 Ethilon. Post procedure chest x-ray was ordered. Impression: Successful placement of a triple-lumen central line. Signed by: Dr. Dakota Chavez DO on 05/30/2018 5:31 PM
--- NOTE | 2018-05-30 17:34 | Diagnostic Imaging Report ---
Exam: Ultrasound guided right internal jugular vein central line placement dated 05/30/2018. History: Patient with respiratory distress in need of IV access. Comparison: None available Findings: Procedure was performed following informed consent from the person authorized to consent. Preliminary ultrasound of the right neck shows the right internal jugular vein to be patent. Image was stored to the medical record. Sterile technique was utilized with full sterile barrier technique. Local anesthesia with 1% Xylocaine was accomplished. Then under continuous sonographic guidance a 21 gauge needle was placed into the internal jugular vein followed by a 0.018 " skinny wire. A 5 [place] Helenian micropuncture sheath was then placed and through the micropuncture sheath a 0.035 " Amplatz superstiff wire placed centrally. Dilatation with a 7 [place] Helenian Rajesh dilator was accomplished. A 7 [place] Helenian Arrow triple-lumen 20 cm long central line was then placed over the Amplatz wire. Each lumen was flushed with saline. Catheter secured to the skin with 3-0 Ethilon. Post procedure chest x-ray was ordered. Impression: Successful placement of a triple-lumen central line. Signed by: Dr. Dakota Chavez DO on 05/30/2018 5:31 PM
[2018-05-30 17:37] LABS: ABG HCO3 29 mmol/L (23-28); ABG PCO2 46 mmHg (41-51); ABG PH 7.41 (7.31-7.41); ABG PO2 61 mmHg (80-105)
[2018-05-30] MEDS ORDERED: SUCCINYLCHOLINE 200 MG/10 ML SYR ONE (17:46)
[2018-05-30] MEDS ORDERED: MIDAZOLAM HCL 2 MG/2 ML VIAL ONE (17:46)
[2018-05-30] MEDS ORDERED: ETOMIDATE 40 MG/ 20ML VIAL IV ONE (17:46)
--- NOTE | 2018-05-30 18:34 | NUR ---
PT INTUBATED BP LOW AFTER SEDATION ADMINISTRATION
--- NOTE | 2018-05-30 19:00 | NUR ---
Bedside report received from Jacy MURPHY and Carley Bowman RN. Per report wants the pt to be transferred to [facility] in the [facility] for possible start of ECMO treatment. corn crop supervisor Cammie MURPHY and Charge nurse Anali MURPHY aware.
[2018-05-30] MEDS: IPRATROPIUM BROMIDE 0.02% 2.5 ML NEB NEB SCH (19:40)
[2018-05-30] MEDS: TRAZODONE HCL 50 MG TAB PO SCH (20:28)
[2018-05-30] MEDS: FENTANYL CITRATE INJ 2,000 MCG in SODIUM CHLORIDE 0.9% 250ML 210 ML IV PRN (20:57)
--- NOTE | 2018-05-30 21:15 | NUR ---
present at the pts bedside assessing the pt. changed ventilator settings at this time. The FIO2% is now 80% and the PEEP is now 12. New order received to completed STAT ABG and call him results. Finn RT notified and is drawing ABG now. Addendum: 05/30/18 at 2305 by Rafia Henriquez RN Amended: Links added.
--- NOTE | 2018-05-30 21:35 | NUR ---
STAT ABG results report to at this time. New order received to increase FIO2% to 90%. Addendum: 05/30/18 at 2304 by Rafia Henriquez RN Amended: Links added.
[2018-05-30 21:43] LABS: ABG PCO2 49 mmHg (41-51)
[2018-05-30 21:44] LABS: ABG HCO3 30 mmol/L (23-28); ABG PO2 52 mmHg (80-105)
--- NOTE | 2018-05-30 21:55 | NUR ---
SPOKE TO [facility] WITH THE TRANSFER CENTER. TRANSFER IS STILL IN PROGRESS. [facility] IS CURRENTLY ON DIVERT AND SHOULD BE OFF DIVERT IN THE AM 05/31/18. AT THAT TIME THEY ARE HOPING A BED WILL BECOME AVAILABLE. PER THE TRANSFER CENTER OUR DR MARIE HAS DONE A DOC TO DOC WITH THEIR PHYSICIAN. HOWEVER, AT THIS TIME ECMO IS ALSO AT CAPACITY AT [facility]. PER [facility] SOME PATIENTS AT THEIR FACILITY MAY BE COMING OFF ECMO IN THE MORNING WELL. THEREFORE, THE PATIENT TRANSFER IS STILL PENDING BED PLACEMENT. ALL ABOVE PASSED IN REPORT TO PM CHARGE NURSE.
[2018-05-30] MEDS: CISATRACURIUM BESYLATE 100 MG in SODIUM CHLORIDE 0.9% 100 ML 100 ML IV PRN (22:37)
[2018-05-30] MEDS: MIDAZOLAM HCL 25 MG in SODIUM CHLORIDE 0.9% 50ML 45 ML IV PRN (22:38)
[2018-05-30] MEDS: PROPOFOL IV EMULSION 10MG/ML 100 ML IV PRN (23:30)
[2018-05-31] VITALS (38 sets, daily range): BP systolic 87–112; BP diastolic 54–66
[2018-05-31] MEDS: IPRATROPIUM BROMIDE 0.02% 2.5 ML NEB NEB SCH ×4 (01:02→19:00)
[2018-05-31] MEDS: MIDAZOLAM HCL 25 MG in SODIUM CHLORIDE 0.9% 50ML 45 ML IV PRN ×6 (01:18→23:26)
[2018-05-31] MEDS: CISATRACURIUM BESYLATE 100 MG in SODIUM CHLORIDE 0.9% 100 ML 100 ML IV PRN (02:44)
[2018-05-31] MEDS: FENTANYL CITRATE INJ 2,000 MCG in SODIUM CHLORIDE 0.9% 250ML 210 ML IV PRN ×2 (02:45→08:53)
[2018-05-31] MEDS: PROPOFOL IV EMULSION 10MG/ML 100 ML IV PRN (03:56)
[2018-05-31 05:19] LABS: BASOPHILS # (AUTO) 0.1 (0.0-0.1); BASOPHILS % 0.4 % (0.0-1.0); EOSINOPHILS # (AUTO) 0.5 (0.0-0.4); EOSINOPHILS % 1.7 % (0.0-6.0); HEMATOCRIT 28.2 % (38.2-49.6); HEMOGLOBIN 9.4 g/dL (14.0-18.0); LYMPHOCYTES # (AUTO) 1.6 (1.0-3.2); LYMPHOCYTES % 5.7 % (18.0-39.1); MEAN CORPUSCULAR HGB CONC 33.3 g/dL (31-35); MONOCYTES # (AUTO) 1.9 (0.2-0.8); NEUTROPHILS # (AUTO) 22.5 (2.1-6.9); NEUTROPHILS % 82.2 % (38.7-80.0); PLATELET COUNT 293 x10e3/uL (140-360); RED BLOOD COUNT 2.54 x10e6/uL (4.3-5.7); RED CELL DISTRIBUTION WIDTH 13.8 % (11.7-14.4)
--- NOTE | 2018-05-31 05:36 | Diagnostic Imaging Report ---
Examination: Single AP view of the chest. COMPARISON: 05/30/2018 INDICATION: Pneumonia DISCUSSION: Lines/tubes: Endotracheal tube and right IJ catheter stable. Lungs: Stable multifocal airspace consolidations. Pulmonary venous congestion. Pleura: No pleural effusion or pneumothorax. Heart and mediastinum: Heart size enlarged Bones and soft tissues: No acute bony abnormalities. IMPRESSION: Stable pulmonary venous congestion and multifocal airspace consolidations. Signed by: Dr. Cezar Mathew M.D. on 05/31/2018 5:32 AM
[2018-05-31] MEDS: MEROPENEM 500MG/ NS 50ML 50 ML IV SCH ×3 (06:02→22:42)
[2018-05-31 06:35] LABS: ALANINE AMINOTRANSFERASE 28 IU/L (0-55); ALBUMIN 1.7 g/dL (3.5-5.0); ALBUMIN/GLOBULIN RATIO 0.4 (0.8-2.0); ALKALINE PHOSPHATASE 149 IU/L (40-150); ANION GAP 11.8 mmol/L (8-16); BLOOD UREA NITROGEN 12 mg/dL (7-26); BUN/CREATININE RATIO 11 (6-25); CARBON DIOXIDE 29 mmol/L (22-29); CHLORIDE 91 mmol/L (98-107); CREATININE, SERUM 1.09 mg/dL (0.72-1.25); EST GLOMERULAR FILTRATION RATE > 60 ML/MIN (60-); GLUCOSE 98 mg/dL (74-118); POTASSIUM 3.8 mmol/L (3.5-5.1); SODIUM 128 mmol/L (136-145)
[2018-05-31 07:06] LABS: EOSINOPHILS % (MANUAL) 3 % (0-7); LYMPHOCYTES % (MANUAL) 3 % (19-48); MONOCYTES % (MANUAL) 10 % (3.4-9.0); NEUTROPHILS % (MANUAL) 84 % (40-74)
[2018-05-31 07:07] LABS: ANISOCYTOSIS MODERATE; HYPOCHROMASIA SLIGHT; PLATELET ESTIMATE ADEQUATE; PLATELET MORPHOLOGY COMMENT NORMAL; RBC MORPHOLOGY COMMENT ABNORMAL
[2018-05-31] MEDS: LEVALBUTEROL HCL SOLN NEBU 0.63 MG/3 ML NEB INH PRN ×3 (07:22→19:00)
[2018-05-31] MEDS: SPIRONOLACTONE 25 MG TAB PO SCH ×2 (08:42→21:28)
[2018-05-31] MEDS: THIAMINE HCL 100 MG TAB PO SCH (08:43)
[2018-05-31] MEDS: NIFEDIPINE CR 30 MG TAB PO SCH ×2 (08:43→15:55)
[2018-05-31] MEDS: FOLIC ACID 1 MG TAB PO SCH (08:43)
[2018-05-31] MEDS: MULTIVITAMINS/MINERALS TAB PO SCH (08:43)
[2018-05-31] MEDS ORDERED: FUROSEMIDE INJ 10 MG/ML 2 ML VIAL IV SCH ×2 (09:00)
[2018-05-31 10:30] LABS: ABG HCO3 30 mmol/L (23-28); ABG PCO2 49 mmHg (41-51); ABG PH 7.39 (7.31-7.41); ABG PO2 71 mmHg (80-105)
[2018-05-31] MEDS: VANCOMYCIN 1GM/NS 250 ML 250 ML IV SCH (11:14)
[2018-05-31] MEDS ORDERED: AZITHROMYCIN 500MG/NS 250 ML 250 ML IV SCH (11:45)
[2018-05-31] MEDS: METHYLPREDNISOLONE SOD SUCC 40 MG/ML VIAL 1ML IV SCH ×2 (13:19→22:42)
[2018-05-31] MEDS: FUROSEMIDE INJ 10 MG/ML 2 ML VIAL IV SCH ×2 (13:42→22:42)
[2018-05-31] MEDS ORDERED: SODIUM CHLORIDE 0.9% 50ML 100 ML ONE (14:48)
[2018-05-31] MEDS ORDERED: IOPAMIDOL 370 MG/ML 200 ML INFUS..BTL INJ ONE (14:49)
--- NOTE | 2018-05-31 15:40 | Diagnostic Imaging Report ---
CT chest pulmonary embolism protocol CPT code: 49766 INDICATION: Intubated, evaluate for pulmonary embolus; suspected infection ^f/u ^[id number] ^[id number] TECHNIQUE: Thin collimation axial images obtained through the level of the pulmonary arteries with additional imaging through the chest following the uneventful administration of 150 cc of low osmolar, nonionic intravenous contrast. Images reconstructed into coronal and sagittal MIPs for complete evaluation of the tortuous and overlapping pulmonary vascular structures and to reduce patient radiation dose. RADIATION DOSE: Total DLP: 1246.96 mGy*cm Estimated effective dose: (DLP x 0.015 x size factor) mSv CTDIvol has been reviewed. It is below the limits set by the Radiation Protocol Committee (RPC). Dose reduction techniques used: Automated exposure control, adjustment of the mAs and/or kVp according to patient size, standardized low-dose protocol, and/or iterative reconstruction technique. COMPARISON: CT chest 05/28/2018. FINDINGS: Images are motion degraded. There is streak artifact across the inferior chest from the patient's arms. Lines/tubes: Right IJ catheter terminates in the SVC. Endotracheal tube terminates just above the aortic arch. Enteric tube extends into the proximal stomach. Pulmonary artery: No large or moderate sized filling defects are appreciated within the main, left, right, lobar pulmonary arteries to suggest embolism. Segmental arteries are poorly visualized due to motion artifact. Main pulmonary artery measures 3.1 cm in diameter Aorta: The thoracic aorta is not aneurysmal. No evidence for dissection. Lymph nodes: No enlarged axillary, supraclavicular, mediastinal, or hilar lymph nodes. Thyroid: Normal in size. Artifact or low attenuating nodule in the left lobe measures 8 mm. Mediastinum: The heart is top normal in size with prominent pericardial fat pads. No pericardial effusion. There is only a mild burden of coronary artery atherosclerosis Lungs: Right Lung: Numerous groundglass opacities have developed throughout the upper lobe, middle lobe, and portions of the lower lobe. There is extensive atelectasis/infiltrate in the posterior upper lobe and posterior lower lobe. The intrapulmonary bronchi remain patent Left Lung: Numerous groundglass opacities have developed throughout the upper lobe. There is complete or near complete consolidation of the lower lobe. The intrapulmonary bronchi remain patent Pleura: No large effusions. There is fluid tracking along the major fissures. Airways: There is filling defect in the ivktoria extending into the right main bronchus. Abdomen: Severe hypoattenuation of the liver is redemonstrated consistent with steatosis. The liver is enlarged. The spleen is enlarged and stable in morphology. No mass or lymphadenopathy in the visualized portion of the upper abdomen. Bones: No focal osseous lesions. Soft tissues: Unremarkable. IMPRESSION: 1. No evidence of pulmonary embolus or aortic dissection. Mildly enlarged pulmonary artery suggestive of pulmonary artery hypertension. 2. Widespread consolidation and atelectasis predominantly involving the lower lobes and the posterior aspect of the right upper lobe. 3. New multifocal airspace opacities suggestive of infection or edema. 4. Filling defect in the distal trachea and proximal right bronchus which may be the result of mucus or the sequela of aspiration. 5. Profound steatosis. Hepatosplenomegaly. 6. Support devices as described above. Signed by: Dr. Louis Moreno MD on 05/31/2018 3:37 PM
[2018-05-31] MEDS: TRAZODONE HCL 50 MG TAB PO SCH (21:28)
--- NOTE | 2018-05-31 21:43 | NUR ---
Was informed in report that [facility] did not have any critical care beds and ecmo available for the care of pt. Called [facility] @[phone] and all information faxed and waiting for further information, was informed since he was already an in patient in out ICU they would have to financial clear him. Family requested we call [facility] because a family membered worked there. Placed a call to [facility] and was informed they only take patients that are already inpatient at other facilities Sun-Sunday starting at 8am, I informed her it was a higher level because we don't have ecmo, she said that was their policy on all in patients.
--- NOTE | 2018-05-31 22:25 | NUR ---
placed a call to [facility], informed they were still on ICU saturation; spoke with [facility] and informed that he had been financially cleared and they were speaking to transferring physician at this time
--- NOTE | 2018-05-31 22:46 | NUR ---
Spoke with [facility] transfer center after doc to doc and was informed ecmo concaver states pt. does not meet ecmo criterial, ICU aware and informing Dr. Streeter.
[2018-05-31] MEDS: SODIUM CHLORIDE 0.9% IV PRN (23:49)
[2018-05-31] MEDS: CISATRACURIUM BESYLATE IV PRN (23:49)
[2018-06-01] VITALS (8 sets, daily range): BP systolic 88–93; BP diastolic 58–63
--- NOTE | 2018-06-01 00:15 | NUR ---
spoke with [facility] transfer center, inform them the accepting doctor, Dr. Benz, states he will be able to make a bed for pt. in AM, transfer center staff states they will speak to their warehouse packaging supervisor and call back, received return call, and a bed will be available in the AM
[2018-06-01 00:16] LABS: ABG HCO3 27 mmol/L (23-28); ABG PCO2 49 mmHg (41-51); ABG PH 7.34 (7.31-7.41); ABG PO2 77 mmHg (80-105)
[2018-06-01] MEDS: FENTANYL CITRATE INJ 2,000 MCG in SODIUM CHLORIDE 0.9% 250ML 210 ML IV PRN (00:26)
[2018-06-01] MEDS: IPRATROPIUM BROMIDE 0.02% 2.5 ML NEB NEB SCH (02:20)
--- NOTE | 2018-06-01 02:58 | Discharge Summary ---
HOSPITAL COURSE: Mr. Galvan is an unfortunately 37-year-old man and he is very sick. He has history of hypertension, alcohol abuse, came to the emergency room with cough, fever, nausea, abdominal pain. He was found to have hyponatremia, hypokalemia, multilobar pneumonia, alcoholic hepatitis. His oxygen levels started going down. He required intubation. At the present time. He is in ICU, he is orally intubated and the plan is to transfer him to the Medical Center for higher level of care. PHYSICAL EXAMINATION: GENERAL: The patient is resting, orally intubated. VITAL SIGNS: Temperature is 98.3, blood pressure 91/55, heart is regular. Saturation is 99%. LUNGS: Poor inspiratory effort. ABDOMEN: Distended and soft. LOWER EXTREMITY: Bilateral edema. LAB WORK: Potassium is 3.8 today, creatinine is 1.09, glucose is 98. White count is elevated 27.3, hemoglobin is 9.4, hematocrit is 28.2, and the chest CT show multilobar pneumonia. ASSESSMENT AND PLAN: 1. Acute respiratory failure, on ventilator. 2. Multilobar pneumonia. 3. Alcoholic hepatitis. 4. Alcohol abuse. 5. Hyponatremia, improving. 6. Hypokalemia, resolved. 7. Leukocytosis. he has had the potassium replaced. Sodium is a little better. He is on IV antibiotics. At the present time. He is orally intubated. He was already accepted in the Medical Center. We are waiting for a bed for him . I spent more than 35 minutes examining patient, reviewing overnight events, x-rays, lab results, and discussing plan of care with family member. MD NANCY Castano/MODL /[id number]
[2018-06-01 03:13] LABS: BASOPHILS # (AUTO) 0.1 (0.0-0.1); BASOPHILS % 0.2 % (0.0-1.0); HEMATOCRIT 29.1 % (38.2-49.6); HEMOGLOBIN 9.6 g/dL (14.0-18.0); LYMPHOCYTES # (AUTO) 0.7 (1.0-3.2); LYMPHOCYTES % 3.4 % (18.0-39.1); MEAN CORPUSCULAR HEMOGLOBIN 36.2 pg (28-32); MEAN CORPUSCULAR VOLUME 109.8 fL (81-99); MONOCYTES # (AUTO) 0.6 (0.2-0.8); MONOCYTES % 2.9 % (4.4-11.3); NEUTROPHILS # (AUTO) 18.8 (2.1-6.9); NEUTROPHILS % 91.1 % (38.7-80.0); PLATELET COUNT 321 x10e3/uL (140-360); RED BLOOD COUNT 2.65 x10e6/uL (4.3-5.7); RED CELL DISTRIBUTION WIDTH 13.3 % (11.7-14.4)
[2018-06-01 03:30] LABS: ANION GAP 17.1 mmol/L (8-16); CALCIUM 8.1 mg/dL (8.4-10.2); CREATININE, SERUM 1.47 mg/dL (0.72-1.25); MAGNESIUM 2.3 MG/DL (1.3-2.1)
[2018-06-01 03:32] LABS: POTASSIUM 5.1 mmol/L (3.5-5.1)
[2018-06-01] MEDS: SODIUM CHLORIDE 0.9% IV PRN (05:15)
[2018-06-01] MEDS: CISATRACURIUM BESYLATE IV PRN (05:15)
[2018-06-01] MEDS: METHYLPREDNISOLONE SOD SUCC 40 MG/ML VIAL 1ML IV SCH (06:00)
[2018-06-01] MEDS: FUROSEMIDE INJ 10 MG/ML 2 ML VIAL IV SCH (06:00)
[2018-06-01] MEDS: MEROPENEM 500MG/ NS 50ML 50 ML IV SCH (06:00)
--- NOTE | 2018-06-01 06:17 | NUR ---
bed received for above pt. at [facility] @ [phone]; with accepting physician Dr. Nelida Benz, pt. will go to CV recovery ICU Bed 49, ambulance called for transport.
--- NOTE | 2018-06-01 07:23 | NUR ---
pt placed on stretcher with vital signs stable, brother with pt at the time. pt spo2 was at 98% bp 93/59 heart rate 88. nimbex going at 2 mcg, versed 4 mg, fentanyl 200mcg
== END 2018-06-01 07:30 | disposition other institution (70) | DRG 871 ==
LOC: ER 13:58 → ERHOLD 18:25 → MED/SURG3 05-28 01:36 → ICU 05-29 08:18
PROVIDERS: ADMIT Internal Medicine; ATTEND Internal Medicine
PROC: 5A09357 Assistance with Respiratory Ventilation, Less than 24 Consecutive Hours, Continuous Positive Airway Pressure (ICD-10-PCS; 2018-05-29)
PROC: 0BH17EZ Insertion of Endotracheal Airway into Trachea, Via Natural or Artificial Opening (ICD-10-PCS; principal; 2018-05-30)
PROC: 5A1945Z Respiratory Ventilation, 24-96 Consecutive Hours (ICD-10-PCS; 2018-05-30)
PROC: 02H633Z Insertion of Infusion Device into Right Atrium, Percutaneous Approach (ICD-10-PCS; 2018-05-30)
DX: A41.9 Sepsis, unspecified organism (principal); J18.9 Pneumonia, unspecified organism; J96.01 Acute respiratory failure with hypoxia; E87.1 Hypo-osmolality and hyponatremia; Z68.41 Body mass index [BMI] 40.0-44.9, adult; E87.2 Acidosis; K70.10 Alcoholic hepatitis without ascites; I10 Essential (primary) hypertension; E86.0 Dehydration; E87.6 Hypokalemia; E66.01 Morbid (severe) obesity due to excess calories; K70.0 Alcoholic fatty liver; R53.81 Other malaise; Z78.1 Physical restraint status; D64.9 Anemia, unspecified
CPT/HCPCS: 36415; 36556; 36600; 71045; 71046; 71250; 71260; 74177; 74470; 76705; 76937; 80048; 80053; 81001; 82150; 82607; 82746; 82805; 83540; 83605; 83690; 83735; 83880; 83935; 84132; 84466; 84484; 85025; 85045; 85610; 86704; 86707; 86803; 87040; 87070; 87086; 87205; 87340; 87350; 87390; 87400; 87449; 87536; 93005; 93306; 94002; 94003; 94640; 94660; 96361; 99284; C1751; C1769; G0433; G0435; J0456; J0696; J1940; J1956; J2250; J2920; J3370; J3411; J3480; J7030; J7050; Q9967

== ENCOUNTER 2018-10-16 12:41 | Emergency (ER) | payer BC ==
[~2018-10-16] VITALS: Ht 182.9 cm; Wt 137.4 kg
[~2018-10-16 12:41] MED LIST changes: +FOLIC ACID1 MG PO; +HYDROCHLOROTHIA25 MG; +NIFEDIPINE ER30 M1 PO; +TRAZODONE HCL50 MG PO
--- OUTSIDE RECORDS SUMMARY | 2018-10-16 12:44 | XMS REPORT | Clinical Summary ---
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 01/28/2018 Discontinued traZODone (DESYREL) 50 [...] 90 without ascites, days. Hypertension, unspecified type 07/28/2018 hydroCHLOROthiazide Take 1 tablet 90 tablet 1 (HYDRODIURIL) 25 mg by mouth 8 tabletIndications: daily for 180 Alcoholic hepatitis days. without ascites, Hypertension, unspecified type Active Problems Problem Noted Date Sinus tachycardia 01/28/2018 Hypertension 01/28/2018 Prediabetes 01/28/2018 Alcoholic hepatitis without ascites Acute kidney injury Resolved Problems Problem Noted Date Resolved Date Sepsis 01/24/2018 01/28/2018 Alcohol withdrawal 01/24/2018 01/28/2018 Hepatitis 01/24/2018 01/28/2018 Encounters Care Team Description Date Type Specialty RubyPia MD Greenberg, Stephen B, MD Alcoholic hepatitis without ascites (Primary Dx); Sepsis, due to unspecified organism; Acute kidney injury; Hypertension, unspecified type 01/24/2018 Hospital - Encounter 01/28/2018 after 10/15/2017 Family History Medical History Relation Name Comments Hypertension Father Hypertension Mother Relation Name Status Comments Brother Alive Father Mother Alive Social History Date Tobacco Use Types Packs/Day Years Used Never Smoker Smokeless Tobacco: Never Used Drinks/Week oz/Week Comments Alcohol Use 3 Shots of liquor 1.8 last drink Sunday: 4 vodka shots; 3-4 drinks a night Yes Sex Assigned at Date Recorded Not on file Industry Job Start Date Occupation Not on file Not on file Not on file Travel End Travel History Travel Start No recent travel history available. Last Filed Vital Signs Reading Time Taken Comments Vital Sign 122/75 01/28/2018 12:55 PM OFFICE MAIL CLERK Blood Pressure 98 01/28/2018 12:55 PM OFFICE MAIL CLERK Pulse 37 C (98.6 F) 01/28/2018 12:55 PM OFFICE MAIL CLERK Temperature 18 01/28/2018 12:55 PM OFFICE MAIL CLERK Respiratory Rate 98% 01/25/2018 2:15 PM OFFICE MAIL CLERK Oxygen Saturation - - Inhaled Oxygen Concentration 127.9 kg (282 lb) 01/25/2018 2:43 PM OFFICE MAIL CLERK Weight 182.9 cm (6') 01/25/2018 2:43 PM OFFICE MAIL CLERK Height 38.25 01/25/2018 2:43 PM OFFICE MAIL CLERK Body Mass Index Plan of Treatment Health Maintenance Due Date Last Done Comments IMM Influenza Seasonal 11/26/2018 Oct to April (>/=19 yrs) Procedures Comments Procedure Name Priority Date/Time Associated Diagnosis TRANSTHORACIC ECHO (TTE) 01/28/2018 10:24 AM OFFICE MAIL CLERK POC GLUCOSE - IN LAB Routine 01/28/2018 (STAT) 6:50 AM OFFICE MAIL CLERK SALIVARY CORTISOL Routine 01/28/2018 5:40 AM OFFICE MAIL CLERK CORTISOL, TOTAL Routine 01/28/2018 4:30 AM OFFICE MAIL CLERK COMPREHENSIVE METABOLIC Routine 01/28/2018 PANEL 4:30 AM OFFICE MAIL CLERK CBC/DIFF Routine 01/28/2018 4:30 AM OFFICE MAIL CLERK PT/INR/PTT Routine 01/27/2018 4:30 AM OFFICE MAIL CLERK COMPREHENSIVE METABOLIC Routine 01/27/2018 PANEL 4:30 AM OFFICE MAIL CLERK CBC/DIFF Routine 01/27/2018 4:30 AM OFFICE MAIL CLERK URINALYSIS Routine 01/26/2018 8:53 AM OFFICE MAIL CLERK TOTAL PROTEIN/CREATININE Routine 01/26/2018 RATIO, URINE 8:53 AM OFFICE MAIL CLERK FREE T4 Routine 01/26/2018 4:20 AM OFFICE MAIL CLERK THYROID STIMULATING Routine 01/26/2018 HORMONE (TSH) 4:20 AM OFFICE MAIL CLERK PT/INR/PTT Routine 01/26/2018 4:20 AM OFFICE MAIL CLERK COMPREHENSIVE METABOLIC Routine 01/26/2018 PANEL 4:20 AM OFFICE MAIL CLERK CBC/DIFF Routine 01/26/2018 4:20 AM OFFICE MAIL CLERK INFUSION PUMP Routine 01/25/2018 2:39 PM OFFICE MAIL CLERK BASIC METABOLIC PANEL STAT 01/25/2018 11:56 AM OFFICE MAIL CLERK CBC/DIFF STAT 01/25/2018 11:56 AM OFFICE MAIL CLERK HEMOGLOBIN A1C STAT 01/25/2018 11:56 AM OFFICE MAIL CLERK CREATININE, URINE, RANDOM STAT 01/25/2018 11:56 AM OFFICE MAIL CLERK UREA NITROGEN, URINE STAT 01/25/2018 11:56 AM OFFICE MAIL CLERK ELECTROLYTES, URINE STAT 01/25/2018 11:56 AM OFFICE MAIL CLERK BASIC METABOLIC PANEL Routine 01/25/2018 4:00 AM OFFICE MAIL CLERK LACTIC ACID STAT 01/25/2018 4:00 AM OFFICE MAIL CLERK ALCOHOL, MEDICAL USE ONLY STAT 01/25/2018 4:00 AM OFFICE MAIL CLERK HEPATITIS PANEL STAT 01/25/2018 4:00 AM OFFICE MAIL CLERK VITAMIN B12 STAT 01/25/2018 4:00 AM OFFICE MAIL CLERK LACTIC ACID STAT 01/25/2018 12:00 AM OFFICE MAIL CLERK FOLIC ACID STAT 01/25/2018 12:00 AM OFFICE MAIL CLERK VITAMIN B12 STAT 01/25/2018 12:00 AM OFFICE MAIL CLERK COMPREHENSIVE METABOLIC STAT 01/25/2018 PANEL 12:00 AM OFFICE MAIL CLERK URINE CULTURE STAT 01/24/2018 10:00 PM OFFICE MAIL CLERK XRAY CHEST 2 VIEWS STAT 01/24/2018 Sepsis, due to 9:37 PM OFFICE MAIL CLERK unspecified organism COMPUTED TOMOGRAPHY STAT 01/24/2018 Sepsis, due to ABDOMEN AND PELVIS 8:42 PM OFFICE MAIL CLERK unspecified organism WITHOUT CONTRAST VBG POC Routine 01/24/2018 5:48 PM OFFICE MAIL CLERK PT/INR/PTT STAT 01/24/2018 5:43 PM OFFICE MAIL CLERK BLOOD CULTURE STAT 01/24/2018 5:40 PM OFFICE MAIL CLERK BLOOD CULTURE STAT 01/24/2018 5:40 PM OFFICE MAIL CLERK BMP POC Routine 01/24/2018 11:58 AM OFFICE MAIL CLERK 12 LEAD EKG Routine 01/24/2018 11:51 AM OFFICE MAIL CLERK HIV-1/HIV-2 ROUTINE STAT 01/24/2018 SCREENING 11:38 AM OFFICE MAIL CLERK URINALYSIS STAT 01/24/2018 11:38 AM OFFICE MAIL CLERK LIPASE STAT 01/24/2018 11:38 AM OFFICE MAIL CLERK LIVER PROFILE STAT 01/24/2018 11:38 AM OFFICE MAIL CLERK CBC/DIFF STAT 01/24/2018 11:38 AM OFFICE MAIL CLERK after 10/15/2017 Results * TRANSTHORACIC ECHO (TTE) (01/28/2018 10:24 AM OFFICE MAIL CLERK) TRANSTHORACIC Transthoracic SMS ECHO (TTE) Echo Report INDRA GALVAN Age:37 Gender: M :1980 Exam Date: 01/28/2018 10:24 Exam Location: [facility] Echo Ordering Phys: RAFAEL OSORIO Referring Phys:[id number], DEVON Reading Phys:Tejas Gong MD Fellow Phys: Madelin Martines M.D. Fellow Phys: Senior Drupal Developer: Peter Smith Reason For Exam: Indications: Dyspnea, unspecified ICD-9 Codes: R06.00 Exam Type: TRANSTHORACIC ECHO (TTE) Procedure CPT:44893 Addtional CPT: Ht (in): 72 BSA: 2.60HR: [...] cm LV E' Lateral Velocity 11.2 cm/s Specimen Performing Organization Address City/[facility] Phone Number SMS * GLUCOSE POC (01/28/2018 6:50 AM OFFICE MAIL CLERK) Glucose POC 147 (H) 74 - 106 mg/dL BT MAIN-STATION 1 Specimen Performing Organization Address City/[facility] Phone Number MISYS BT MAIN-STATION 1 * SALIVARY CORTISOL (01/28/2018 5:40 AM OFFICE MAIL CLERK) Salivary 0.221 LABORATORY Cortisol Unit: ug/dL CORPORATION OF (note) KATT Reference Range: Children and Adults: 8:00a.m.: 0.025 - 0.600 Noon:<0.010 - 0.330 4:00p.m.: 0.010 - 0.200 Midnight:<0.010 - 0.090 Specimen Other (Specify in Comments) Performing Organization Address City/[facility] Phone Number Subtext LABORATORY CORPORATION OF [address] [id number] [facility] 145 * COMPREHENSIVE METABOLIC PANEL(DBIL NOT INCLUDED) (01/28/2018 4:30 AM OFFICE MAIL CLERK) Only the most recent of 4 results [...] 70 - 110 mg/dL BT MAIN-STATION 1 Alkaline 86 34 - 104 U/L BT MAIN-STATION Phosphatase, S 1 Potassium 3.5 3.5 - 5.1 mmol/L BT MAIN-STATION 1 Sodium 138 136 - 145 mmol/L BT MAIN-STATION 1 ALT 25 7 - 52 U/L BT MAIN-STATION 1 AST (SGOT) 52 (H) 13 - 39 U/L BT MAIN-STATION 1 BUN 11 7 - 25 mg/dL BT MAIN-STATION 1 Bilirubin, 1.7 (H) 0.2 - 1.2 mg/dL BT MAIN-STATION Total 1 Protein, Total, 6.5 6.0 - 8.3 g/dL BT MAIN-STATION Serum 1 GFR, Estimated 48 mL/min/1.73 m2 BT MAIN-STATION 1 eGFR If Africn 59 mL/min/1.73 m2 BT MAIN-STATION Am 1 Anion Gap 12 BT MAIN-STATION 1 Specimen Blood Performing Organization Address City/[facility]/Zipcode Phone Number MISYS BT MAIN-STATION 1 * CORTISOL, TOTAL (01/28/2018 4:30 AM OFFICE MAIL CLERK) Cortisol, Total 12.3 3.44 - 22.45 mcg/dL BT MAIN-STATION 1 Specimen Performing Organization Address City/[facility] Phone Number MISYS BT MAIN-STATION 1 * CBC/DIFF (01/28/2018 4:30 AM OFFICE MAIL CLERK) Only the most recent of 5 results [...] 35.1 - 43.9 fL BT MAIN-STATION 2 Platelets 340 150 - 400 K/uL BT MAIN-STATION 2 Mean Platelet 10.2 9.4 - 12.4 fL BT MAIN-STATION Volume 2 Percent NRBC 0.0 BT MAIN-STATION 2 Absolute NRBC 0.00 BT MAIN-STATION 2 Neutrophils 74.9 (H) 34.0 - 67.9 % BT MAIN-STATION 2 Lymphs 11.9 (L) 21.8 - 50.0 % BT MAIN-STATION 2 Monocytes 10.1 5.3 - 12.0 % BT MAIN-STATION 2 Eos 2.1 0.8 - 5.0 % BT MAIN-STATION 2 Basos 0.5 0.2 - 1.2 % BT MAIN-STATION 2 Immature 0.5 0.0 - 0.5 BT MAIN-STATION Granulocytes 2 Neutrophils 9.66 (H) 1.78 - 5.36 K/uL BT MAIN-STATION (Absolute) 2 Lymphs 1.54 1.32 - 3.57 K/uL BT MAIN-STATION (Absolute) 2 Monocytes(Absol 1.31 (H) 0.30 - 0.82 K/uL BT MAIN-STATION knik) 2 Eos (Absolute) 0.27 0.04 - 0.54 K/uL BT MAIN-STATION 2 Baso (Absolute) 0.07 0.01 - 0.08 K/uL BT MAIN-STATION 2 Immature Grans 0.07 (H) 0.00 - 0.03 K/uL BT MAIN-STATION (Abs) 2 Specimen Blood Performing Organization Address [facility] Phone Number MISYS BT MAIN-STATION 2 * PT/INR/PTT (01/27/2018 4:30 AM OFFICE MAIL CLERK) Only the most recent of 3 results within the time period is included. PT 14.5 11.8 - 15.0 Seconds BT MAIN-STATION 3 INR 1.2 BT MAIN-STATION SUGGESTED THERAPEUTIC RANGES: 3 INR 2.0-3.0 for MODERATE INTENSITY ANTICOAGULATION INR 2.5-3.5 for HIGH INTENSITY ANTICOAGULATION PTT 35.5 23.6 - 36.4 Seconds BT MAIN-STATION 3 Specimen Blood Performing Organization Address [facility] Phone Number MISYS BT MAIN-STATION 3 * UA CHEMISTRIES (01/26/2018 8:53 AM OFFICE MAIL CLERK) Only the most recent of 2 results within the time period is included. Color Yellow BT MAIN-STATION 3 Clarity Clear BT MAIN-STATION 3 Specific 1.005 1.001 - 1.035 BT MAIN-STATION [place] 3 pH 6.0 5 - 8 BT MAIN-STATION 3 Protein Negative NEG BT MAIN-STATION 3 Glucose Negative NEG BT MAIN-STATION 3 Ketones Negative NEG BT MAIN-STATION 3 Bilirubin Negative NEG BT MAIN-STATION 3 Nitrate Negative NEG BT MAIN-STATION 3 Urobilinogen,Se <1.0 0.2 - 1.0 EU/dL BT MAIN-STATION mi-Qn 3 Leukocyte Negative NEG BT MAIN-STATION 3 Occult Blood Negative NEG BT MAIN-STATION 3 Specimen Urine Performing Organization Address [facility] Phone Number [facility] BT MAIN-STATION 3 * T PROT/CREA RATIO,UR (01/26/2018 8:53 AM OFFICE MAIL CLERK) Creatinine, 59.4 20 - 370 mg/dL BT MAIN-STATION Urine 1 T Prot, Ur 0.08 g/L BT MAIN-STATION 1 T Prot/Crea 0.13 0.0 - 0.5 BT MAIN-STATION Ratio,Ur 1 Specimen Urine Performing Organization Address [facility] Phone Number [facility] BT MAIN-STATION 1 * TSH (01/26/2018 4:20 AM OFFICE MAIL CLERK) TSH 8.94 (H) 0.57 - 3.74 uIU/mL BT MAIN-STATION 1 Specimen Performing Organization Address [facility] Phone Number [facility] * FREE T4 (01/26/2018 4:20 AM OFFICE MAIL CLERK) Free T4 1.36 (H) 0.61 - 1.18 ng/dl BT MAIN-STATION 1 Specimen Performing Organization Address [facility] Phone Number [facility] BT [facility] 1 * HEMOGLOBIN A1C (01/25/2018 11:56 AM OFFICE MAIL CLERK) Hemoglobin A1c 6.2 (H) 4.3 - 6.1 % BT DIAGNOSTIC IMMUNOLOGY Est Average 131.2 mg/dL BT DIAGNOSTIC Gluc IMMUNOLOGY Specimen Blood Performing Organization Address [facility] Phone Number [facility] BT DIAGNOSTIC IMMUNOLOGY * UREA NITROGEN, UR (01/25/2018 11:56 AM OFFICE MAIL CLERK) Urea Nitrogen, 116 (L) 350 - 1,000 mg/dL BT MAIN-STATION Ur 1 Specimen Urine Performing Organization Address [facility] Phone Number [facility] BT [facility] 1 * ELECTROLYTES, UR (01/25/2018 11:56 AM OFFICE MAIL CLERK) Sodium, Ur 59 40 - 220 mmol/L BT MAIN-STATION 1 Potassium, Ur 10 (L) 25 - 125 mmol/L BT MAIN-STATION 1 Chloride, Ur 63 (L) 110 - 250 mmol/L BT MAIN-STATION 1 Specimen Urine Performing Organization Address [facility] Phone Number MISYS BT MAIN-STATION 1 * CREATININE, UR (01/25/2018 11:56 AM OFFICE MAIL CLERK) Creatinine, 62.2 20 - 370 mg/dL BT MAIN-STATION Urine 1 Specimen Urine Performing Organization Address [facility] Phone Number MISYS BT MAIN-STATION 1 * BASIC METABOLIC PANEL (01/25/2018 11:56 AM OFFICE MAIL CLERK) Only the most recent of 2 results within the time period is included. CO2 28 21 - 31 mmol/L BT MAIN-STATION 1 Chloride 102 98 - 107 mmol/L BT MAIN-STATION 1 Potassium 3.7 3.5 - 5.1 mmol/L BT MAIN-STATION 1 Sodium 139 136 - 145 mmol/L BT MAIN-STATION 1 Glucose 155 (H) 70 - 110 mg/dL BT MAIN-STATION 1 BUN 12 7 - 25 mg/dL BT MAIN-STATION 1 Creatinine 2.20 (H) 0.7 - 1.3 mg/dL BT MAIN-STATION 1 Anion Gap 9 BT MAIN-STATION 1 Calcium 8.8 8.6 - 10.3 mg/dL BT MAIN-STATION 1 GFR, Estimated 33 mL/min/1.73 m2 BT MAIN-STATION 1 eGFR If Africn 41 mL/min/1.73 m2 BT MAIN-STATION Am 1 Specimen Blood Performing Organization Address [facility] Phone Number MISYS BT MAIN-STATION 1 * VITAMIN B12 (01/25/2018 4:00 AM OFFICE MAIL CLERK) Only the most recent of 2 results within the time period is included. Vitamin B12 1,177 (H) 211 - 911 pg/mL BT MAIN-STATION 1 Specimen Blood Performing Organization Address [facility] Phone Number MISYS BT MAIN-STATION 1 * LACTIC ACID (01/25/2018 4:00 AM OFFICE MAIL CLERK) Only the most recent of 2 results within the time period is included. Lactic Acid 1.2 0.5 - 2.2 mmol/L BT MAIN-STATION 1 Specimen Blood Performing Organization Address [facility] Phone Number MISYS BT MAIN-STATION 1 * HEPATITIS PANEL (01/25/2018 4:00 AM OFFICE MAIL CLERK) HCV IgG Negative NEG BT MAIN-STATION 3 HBsAg Negative NEG BT MAIN-STATION 3 HAV, IgM Negative NEG BT MAIN-STATION 3 HBcAb, IgM Negative NEG BT MAIN-STATION 3 Specimen Blood Performing Organization Address [facility] Phone Number MISYS BT MAIN-STATION 3 * ALCOHOL, MEDICAL USE ONLY (01/25/2018 4:00 AM OFFICE MAIL CLERK) Alcohol <0.010 <0.1 g/dL BT MAIN-STATION 1 Specimen Blood Performing Organization Address [facility] Phone Number [facility] BT MAIN-STATION 1 * FOLIC ACID (01/25/2018 12:00 AM OFFICE MAIL CLERK) Folic Acid 3.3 (L) 5.9 - 24.8 ng/mL BT MAIN-STATION 1 Specimen Blood Performing Organization Address [facility] Phone Number [facility] BT MAIN-STATION 1 * URINE CULTURE (01/24/2018 10:00 PM OFFICE MAIL CLERK) Spec Clean catch urine BT MICROBIOLOGY Description Order Comments None BT MICROBIOLOGY Culture No growth 3 days BT MICROBIOLOGY Report Status Final 01/28/2018 BT MICROBIOLOGY Specimen Urine clean catch - Clean Catch [place] Performing Organization Address [facility] Phone Number [facility] BT [facility] * XRAY CHEST 2 VIEWS (01/24/2018 9:37 PM OFFICE MAIL CLERK) Specimen Impressions Performed At IMPRESSION: SMS No acute thoracic abnormality. A "PRELIMINARY" report was made available via [facility] at the time of dictation by the [...] Interface, Rad/Mammog In - 01/25/2018 1:33 AM OFFICE MAIL CLERK EXAMINATION: XRAY CHEST 2 VIEWS, Frontal and [...] A "PRELIMINARY" report was made available via [employer] at the time of dictation by the [...] AND PELVIS WITHOUT CONTRAST (01/24/2018 8:42 PM OFFICE MAIL CLERK) Specimen Impressions Performed At IMPRESSION: SMS 1.No acute intra-abdominal or intrapelvic CT abnormalities. 2.Diffuse hepatic steatosis. A "PRELIMINARY" report was made available via [employer] at the time of dictation by the [...] Interface, Rad/Mammog In - 01/25/2018 12:31 AM OFFICE MAIL CLERK EXAM: CT Abdomen and Pelvis WITHOUT contrast [...] A "PRELIMINARY" report was made available via [employer] at the time of dictation by the [...] MD, 01/25/2018 12:26 AM Performing Organization Address [facility] Phone Number SMS * VBG POC (01/24/2018 5:48 PM OFFICE MAIL CLERK) pH, Robert POC 7.44 (H) 7.33 - [...] 21 - 32 mmol/L BT MAIN-STATION 1 Specimen Performing Organization Address [facility] Phone Number MISYS BT MAIN-STATION 1 * BLOOD CULTURE (01/24/2018 5:40 PM OFFICE MAIL CLERK) Only the most recent of 2 results within the time period is included. Spec Blood BT MICROBIOLOGY Description Order Comments RT AC BT MICROBIOLOGY Culture No growth 5 days BT MICROBIOLOGY Report Status Final 01/29/2018 BT MICROBIOLOGY Specimen Blood Products (Lab Use Only) - BLOOD Performing Organization Address [facility] Phone Number MISYS BT MICROBIOLOGY * BMP POC (01/24/2018 11:58 AM OFFICE MAIL CLERK) CO2 POC 22 21 - 32 mmol/L [...] 28 mL/min/1.73 m2 BT MAIN-STATION Afr-Am 1 Specimen Performing Organization Address City/[facility] Phone Number MISYS BT MAIN-STATION 1 * 12 LEAD EKG (01/24/2018 11:51 AM OFFICE MAIL CLERK) 12 LEAD EKG FOR [facility] Test Date:2018-01-24 Pat Name: INDRA GALVAN Department: [id number] 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 Measurements Intervals [place] Rate: 126 P: 70 HI: 144 QRS: 53 QRSD: 94 T:1 QT: 406 QTc:589 Interpretive Statements SINUS TACHYCARDIA ST DEVIATION AND MODERATE T-WAVE ABNORMALITY, CONSIDER INFERIOR ISCHEMIA Electronically Signed On 01-24-2018 13:58:21 OFFICE MAIL CLERK by Shital Gonsales M.D. Specimen Performing Organization Address [facility]/Zipcode Phone Number [facility] * HIV-1/HIV-2 ROUTINE SCREENING (01/24/2018 11:38 AM OFFICE MAIL CLERK) HIV-1/HIV-2 Negative NEG BT MAIN-STATION 4 Specimen Performing Organization Address City/[facility] Phone Number MISYS BT MAIN-STATION 4 * LIVER PROFILE (01/24/2018 11:38 AM OFFICE MAIL CLERK) Protein, Total, 7.0 6.0 - 8.3 g/dL BT MAIN-STATION Serum 1 Albumin 3.8 (L) 4.2 - 5.5 g/dL BT MAIN-STATION 1 Bilirubin, 1.8 (H) 0.2 - 1.2 mg/dL BT MAIN-STATION Total 1 Alkaline 126 (H) 34 - 104 U/L BT MAIN-STATION Phosphatase, S 1 AST (SGOT) 122 (H) 13 - 39 U/L BT MAIN-STATION 1 ALT 57 (H) 7 - 52 U/L BT MAIN-STATION 1 D Bilirubin 0.8 (H) 0.0 - 0.2 mg/dL BT MAIN-STATION 1 Specimen Blood Performing Organization Address City/[facility] Phone Number MISYS BT MAIN-STATION 1 * LIPASE (01/24/2018 11:38 AM OFFICE MAIL CLERK) Lipase 43 11 - 82 U/L BT MAIN-STATION 1 Specimen Blood Performing Organization Address City/[facility] Phone Number MISYS BT MAIN-STATION 1 after 10/15/2017 Insurance Type Payer Benefit Subscriber ID Effective Phone Address Plan / Dates Group BC/BS BC/BS PPO xxxxxxxxxxxx 2017-P [phone] [address] [place] [address] Advance Directives Date Inactivated Comments Code Status Date Activated 01/28/2018 3:20 PM Full Code 01/24/2018 10:54 PM
[2018-10-16 14:58] LABS: BASOPHILS # (AUTO) 0.1 (0.0-0.1); BASOPHILS % 0.3 % (0.0-1.0); EOSINOPHILS # (AUTO) 0.1 (0.0-0.4); EOSINOPHILS % 0.5 % (0.0-6.0); HEMATOCRIT 22.2 % (38.2-49.6); HEMOGLOBIN 7.7 g/dL (14.0-18.0); LYMPHOCYTES % 5.3 % (18.0-39.1); MEAN CORPUSCULAR HEMOGLOBIN 36.5 pg (28-32); MEAN CORPUSCULAR HGB CONC 34.7 g/dL (31-35); MEAN CORPUSCULAR VOLUME 105.2 fL (81-99); MONOCYTES # (AUTO) 2.2 (0.2-0.8); MONOCYTES % 11.7 % (4.4-11.3); NEUTROPHILS % 80.6 % (38.7-80.0); PLATELET COUNT 184 x10e3/uL (140-360); RED BLOOD COUNT 2.11 x10e6/uL (4.3-5.7)
[2018-10-16 15:13] LABS: ALANINE AMINOTRANSFERASE 22 IU/L (0-55); ALBUMIN 2.5 g/dL (3.5-5.0); ALBUMIN/GLOBULIN RATIO 0.6 (0.8-2.0); ALKALINE PHOSPHATASE 159 IU/L (40-150); ANION GAP 15.7 mmol/L (8-16); BLOOD UREA NITROGEN 9 mg/dL (7-26); BUN/CREATININE RATIO 6 (6-25); CALCIUM 8.5 mg/dL (8.4-10.2); CARBON DIOXIDE 28 mmol/L (22-29); CHLORIDE 93 mmol/L (98-107); CREATINE KINASE 39 IU/L (30-200); CREATININE, SERUM 1.47 mg/dL (0.72-1.25); EST GLOMERULAR FILTRATION RATE 53 ML/MIN (60-); GLUCOSE 144 mg/dL (74-118); SODIUM 134 mmol/L (136-145)
[2018-10-16 15:19] LABS: POTASSIUM 2.7 mmol/L (3.5-5.1)
[2018-10-16] MEDS ORDERED: CEFTRIAXONE SOD 1 GM/NS 50 ML 50 ML IV SCH (15:30)
[2018-10-16] MEDS ORDERED: POTASSIUM CHLORIDE 10MEQ/100ML 200 ML IV ONE (15:30)
[2018-10-16 15:54] LABS: BILIRUBIN,URINE LARGE (NEGATIVE); CLARITY,URINE CLOUDY (CLEAR); COLOR,URINE BROWN (YELLOW); KETONES,URINE TRACE (NEGATIVE); LEUKOCYTE ESTERASE ,URINE SMALL (NEGATIVE); NITRITE,URINE POSITIVE (NEGATIVE); PROTEIN,URINE DIPSTICK 2+ (NEGATIVE); URINE UROBILINOGEN 1 mg/dL (0.2 - 1)
[2018-10-16 16:09] LABS: AMORPHOUS SEDIMENT,URINE MODERATE (FEW); BACTERIA,URINE MANY /HPF; EPITHELIAL CELLS,URINE FEW /LPF; WBC,URINE (MAN) 0-5 /HPF (0-5)
[2018-10-16] MEDS ORDERED: SODIUM CHLORIDE 0.9% 1000ML 1,000 ML IV SCH (17:00)
[2018-10-16 17:30] LABS: INR 1.48; PROTHROMBIN TIME 18.5 seconds (11.9-14.5)
--- NOTE | 2018-10-16 17:53 | Diagnostic Imaging Report ---
CT of the abdomen and pelvis, with contrast, 10/16/2018. History: Hematuria and jaundice. Comparison: 05/27/2018. Technique: Multidetector CT scanning of the abdomen and pelvis was performed from the level of the lung bases to the inferior pubic rami after intravenous administration of contrast. Coronal and sagittal multiplanar reformations were obtained. RADIATION DOSE: Total DLP: 808 mGy*cm Dose modulation, iterative reconstruction, and/or weight based adjustment of the mA/kV was utilized to reduce the radiation dose to as low as reasonably achievable. Discussion: LUNG BASES: There is bibasilar atelectasis with trace left pleural effusion. ABDOMEN: The liver remains enlarged measuring over 22 cm in length. There is diffuse low-density of the liver without focal hepatic lesion. The spleen is prominent measuring 13.3 cm in length. The portal vein is dilated measuring 16 mm in diameter. Gallbladder is collapsed with minimal hyperdensity seen layering posteriorly. The biliary tree, pancreas, adrenal glands, and kidneys are unremarkable. The hepatic vein, portal vein, and splenic vein are patent. The abdominal aorta is within normal limits for size. Evaluation of bowel is limited without oral contrast. There is no bowel dilatation. Prominent delma hepatis lymph node measuring up to 1.3 cm in short axis diameter is again noted. A small amount of ascites is present. Surgical clips are noted in the right lower quadrant of uncertain etiology. PELVIS: The bladder, prostate, and seminal vesicles are normal in appearance. There is no evidence of free fluid or adenopathy. BONES AND SOFT TISSUES: No acute abnormality. IMPRESSION: Hepatosplenomegaly with diffuse fatty infiltration of the liver and findings suggestive of portal hypertension. Correlate with LFTs. Small volume ascites is again noted. Possible gallbladder sludge again noted. No significant change compared to prior exam. Signed by: Aris Sal on 10/16/2018 5:50 PM
--- NOTE | 2018-10-16 18:33 | NUR ---
report given to KATHERINE Torres at [facility] pt admitted to room 7 [place] [id number] rm [id number]
--- NOTE | 2018-10-16 19:31 | Diagnostic Imaging Report ---
HEPATOBILIARY SCAN INDICATION: 37 M with RUQ abdominal pain and jaundice Report: Following the administration of 6.8 mCi of Tc-99m mebrofenin, dynamic images of the abdomen in the anterior projection were obtained through 60 minutes. Perfusion of the liver is normal. Extraction of tracer from the blood pool by the liver parenchyma is markedly prolonged. Tracer does not appear in the biliary tract through 60 minutes of imaging. Impression: 1. Severely impaired hepatocyte function. 2. Cholestasis. Gallbladder filling cannot be assessed because tracer does not appear in the biliary tract. Signed by: Dr. Zaria Feliz M.D. on 10/16/2018 7:27 PM
--- NOTE | 2018-10-16 19:35 | NUR ---
CALLED [facility] FOR TRANSPORT - ETA 45MIN TO 1 HOUR
[2018-10-16 20:38] VITALS: BP 103/62
[2018-10-16] MEDS ORDERED: IOPAMIDOL 370 MG/ML 200 ML INFUS..BTL INJ ONE (22:22)
[2018-10-16] MEDS ORDERED: SODIUM CHLORIDE 0.9% 50ML 50 ML ONE (22:22)
== END 2018-10-16 20:54 | disposition short-term general hospital (02) ==
LOC: ER 12:41
DX: K70.10 Alcoholic hepatitis without ascites (principal); K72.90 Hepatic failure, unspecified without coma; R00.0 Tachycardia, unspecified; K62.5 Hemorrhage of anus and rectum; I10 Essential (primary) hypertension; R06.00 Dyspnea, unspecified
CPT/HCPCS: 36415; 74177; 78226; 80053; 80329; 81001; 82550; 82553; 83605; 83880; 84484; 85025; 85610; 86705; 86706; 86803; 86850; 86900; 87340; 87522; 99284; A9537; J0696; J3480; J7030; Q9967

== ENCOUNTER 2019-09-26 10:45 | Inpatient (IN) | payer BC, OTHER ==
[~2019-09-26] VITALS: Ht 182.9 cm; Wt 88.9 kg
--- NOTE | 2019-09-26 11:28 | Diagnostic Imaging Report ---
EXAMINATION: CHEST SINGLE (PORTABLE) INDICATION: Anemia COMPARISON: Chest CT 05/31/2018 FINDINGS: LINES/TUBES:Right IJ tunneled dialysis catheter terminates at the superior cavoatrial junction. LUNGS:The lungs are well-inflated. Mild left basilar opacity. PLEURA:No pleural effusion or pneumothorax. MEDIASTINUM:The cardiomediastinal silhouette appears normal in size and shape. BONES/SOFT TISSUES:No acute osseous injury. ABDOMEN:No free air under the diaphragm. IMPRESSION: Mild left basilar opacity, most likely subsegmental atelectasis. Signed by: Srinivasan Myers MD on 09/26/2019 11:25 AM
--- NOTE | 2019-09-26 11:54 | Emergency Department Note ---
History of Present Illnes History of Present Illness Chief Complaint: General Medicine Complaints History of Present Illness This is a 38 year old male arrives to the ED with concerns of low hemoglobin, patient states he told his Hb is 7.5 Historian: Patient Arrival Mode: Car Onset quality: gradual Chronicity: recurrent Relieving factors: none Exacerbating factors: none Past Medical/Family History Physician Review I have reviewed the patient's past medical and family history. Any updates have been documented here. Past Medical History Recent Fever: No Clinical Suspicion of Infectio: No New/Unexplained Change in Ment: No Past Medical History: Liver Disease, ESRD, Hemodyalisis, Anemia, Chronic Kidney Disease Other Medical History: Pacreatitis PNEUMONIA Past Surgical History: None Other Surgery: none Social History Physically hurt or threatened: No Other Last Tetanus: UTD Review of Systems Review of Systems Constitutional: Reports as per HPI, Reports malaise, Reports weakness EENTM: Reports no symptoms Cardiovascular: Reports no symptoms Respiratory: Reports no symptoms Gastrointestinal: Reports no symptoms Genitourinary: Reports no symptoms Musculoskeletal: Reports no symptoms Integumentary: Reports no symptoms Neurological: Reports no symptoms Psychological: Reports no symptoms Endocrine: Reports no symptoms Hematological/Lymphatic: Reports no symptoms Review of other systems: All other systems negative Physical Exam Related Data Allergies: Coded Allergies: No Known Allergies (Unverified , 10/16/18) Triage Vital Signs Vital Signs Date Time Temp Pulse Resp B/P (MAP) Pulse Ox O2 Delivery O2 Flow Rate FiO2 09/26/19 10:54 98.8 113 16 123/58 98 Room Air Vital signs reviewed: Yes Physical Exam CONSTITUTIONAL Constitutional: Present well-developed, Present well-nourished HENT HENT: Present normocephalic, Present atraumatic, Present oropharynx clear/moist, Present nose normal HENT L/R: Present left ext ear normal, Present right ext ear normal EYES Eyes: Reports PERRL, Reports conjunctivae normal NECK Neck: Present ROM normal PULMONARY Pulmonary: Present effort normal, Present breath sounds normal CARDIOVASCULAR Cardiovascular: Present regular rhythm, Present heart sounds normal, Present capillary refill normal, Present normal rate GASTROINTESTINAL Abdominal: Present soft, Present nontender, Present bowel sounds normal GENITOURINARY Genitourinary: Present exam deferred SKIN Skin: Present warm, Present dry MUSCULOSKELETAL Musculoskeletal: Present ROM normal NEUROLOGICAL Neurological: Present alert, Present oriented x 3, Present no gross motor or sensory deficits PSYCHOLOGICAL Psychological: Present mood/affect normal, Present judgement normal Assessment & Plan Last Vital Signs Date Time Temp Pulse Resp B/P (MAP) Pulse Ox O2 Delivery O2 Flow Rate FiO2 09/26/19 10:54 98.8 113 16 123/58 98 Room Air Home Meds Reported Medications Nifedipine (NIFEDIPINE ER) 30 Mg Tab.er.24, 30 MG PO BID 05/27/18 Hydrochlorothiazide (HYDROCHLOROTHIAZIDE) 25 Mg Tablet, 25 MG DAILY, #30 TAB 05/27/18 Folic Acid (FOLIC ACID) 1 Mg Tablet, 1 MG PO DAILY, #30 TAB 05/27/18 Trazodone Hcl (TRAZODONE HCL) 50 Mg Tablet, 50 MG PO HS, #30 TAB 05/27/18 MARYLU KELSEY, DO Sep 26, 2019 11:54
[2019-09-26 11:57] LABS: BASOPHILS # (AUTO) 0.1 (0.0-0.1); BASOPHILS % 0.6 % (0.0-1.0); EOSINOPHILS # (AUTO) 0.2 (0.0-0.4); EOSINOPHILS % 2.6 % (0.0-6.0); LYMPHOCYTES # (AUTO) 0.6 (1.0-3.2); LYMPHOCYTES % 7.4 % (18.0-39.1); MEAN CORPUSCULAR HEMOGLOBIN 36.4 pg (28-32); MEAN CORPUSCULAR HGB CONC 32.9 g/dL (31-35); MEAN CORPUSCULAR VOLUME 110.5 fL (81-99); NEUTROPHILS # (AUTO) 6.1 (2.1-6.9); NEUTROPHILS % 75.8 % (38.7-80.0); PLATELET COUNT 125 x10e3/uL (140-360); RED BLOOD COUNT 1.43 x10e6/uL (4.3-5.7); RED CELL DISTRIBUTION WIDTH 15.9 % (11.7-14.4)
[2019-09-26 12:07] LABS: INR 1.6
[2019-09-26 12:08] LABS: PARTIAL THROMBOPLASTIN TIME 39.4 seconds (23.8-35.5)
[2019-09-26 12:11] LABS: HEMOGLOBIN 5.2 g/dL (14.0-18.0)
[2019-09-26 12:12] LABS: HEMATOCRIT 15.8 % (38.2-49.6)
[2019-09-26 12:14] LABS: ALBUMIN 2.8 g/dL (3.5-5.0); ALBUMIN/GLOBULIN RATIO 0.7 (0.8-2.0); ANION GAP 16.2 mmol/L (8-16); CALCIUM 8.4 mg/dL (8.4-10.2); CREATININE, SERUM 2.9 mg/dL (0.72-1.25); POTASSIUM 3.2 mmol/L (3.5-5.1)
[2019-09-26] MEDS ORDERED: TRIMETHOPRIM/SULFAMETHOXAZOLE 160-800 MG TAB ONE (13:06)
[2019-09-26 13:23] LABS: CREATINE KINASE MB 0.5 ng/mL (0-5.0)
[2019-09-26 13:54] VITALS: BP 112/55
[2019-09-26] MEDS ORDERED: HYDRALAZINE HCL 20 MG/ML VIAL IV PRN (15:45)
[2019-09-26] MEDS ORDERED: ACETAMINOPHEN 325 MG TAB PO PRN (15:45)
[2019-09-26] MEDS ORDERED: ONDANSETRON HCL INJ 2MG/ML 2ML 2 MG/ML VIAL IV PRN (15:45)
--- NOTE | 2019-09-26 16:22 | NUR ---
SPOKE TO CORRECTIVE THERAPIST AT [facility] REGARDING A STAT DIALYSIS ORDER, SHE STATED THAT SHE WOULD NOTIFY THE NURSE NOW.
[2019-09-26] MEDS ORDERED: FUROSEMIDE INJ 10 MG/ML 4 ML VIAL IV PRN (16:30)
[2019-09-26] MEDS ORDERED: SODIUM CHLORIDE 0.9% 250ML 250 ML IV ONE (16:35)
[2019-09-26 16:38] VITALS: BP 112/55
[2019-09-26] MEDS: NIFEDIPINE CR 30 MG TAB PO SCH (17:00)
[2019-09-26 17:03] VITALS: BP 106/60
[2019-09-26] MEDS ORDERED: BISACODYL 5 MG TAB EC PO PRN (17:30)
--- NOTE | 2019-09-26 17:30 | Consultation ---
DATE OF CONSULTATION: 09/26/2019 HISTORY OF PRESENT ILLNESS: A 38-year-old gentleman known to our Nephrology Service, dialyzes at [facility]. Dr. Huffman sent this patient over because of progressive anemia. The patient had last Sunday noticed a little bit of blood in his urine, was treated for urinary tract infection, thereafter he has not had any hematuria. He also denies any black stools, melena, hematemesis. Denies any abdominal pain, fever, or chills. Has a dialysis catheter, where he gets dialysis. Labs show white count 8, hemoglobin 5.2. Chemistry; show potassium 3.2, bicarbonate 27. He was dialyzed yesterday. Creatinine today is 2.9, total bilirubin is 12.9, AST 88, ALT 21. Total protein 6.8. The patient does have existing history of underlying history of cirrhosis of liver, possible portal hypertension, end-stage renal disease, history of pancreatitis, history of large fluid gains between dialysis, requiring dialysis. SOCIAL HISTORY: Does not smoke or drink. FAMILY HISTORY: Significant for hypertension. PAST HISTORY: The patient was very sick last April. He was here transferred to [facility], was in the hospital for about 7 months with kidney failure, requiring dialysis. He has underlying history of hypertension. ALLERGIES: HE HAS NO KNOWN ALLERGIES. Workup here was a chest x-ray only. Which shows mild left basilar opacity, most likely segmental atelectasis. PHYSICAL EXAMINATION: GENERAL: The patient is awake, alert, oriented x3, lying supine, in no apparent distress. VITAL SIGNS: Blood pressure 112/55, pulse 97, afebrile, and oxygen saturation 100% on room air. HEAD AND NECK: Cornea clear, mucosa moist. LUNGS: Relatively clear. HEART: S1, S2 audible. ABDOMEN: Distended, soft, nontender. EXTREMITIES: Lower extremity examination 1+ edema. LABORATORY DATA: Sodium 136, potassium 3.2, total bilirubin 12.9, AST 88. Hemoglobin shows 5.2 with a platelet count of 125, white count 8. IMPRESSION: Severe anemia, must rule out gastrointestinal bleed. Has significantly elevated bilirubin. I will type and crossmatch 3 units of packed RBC and transfuse on dialysis, awaiting dialysis nurse. In the mean time, we will consult GI. Place on a renal diet. Discussed with bedside RN. Please see orders. MD SUMAN Miranda/SINDI /[id number]
[2019-09-26] MEDS ORDERED: DOCUSATE SODIUM 100 MG CAP PO SCH (18:00)
[2019-09-26] MEDS ORDERED: DOCUSATE SODIUM 100 MG CAP PO PRN (18:15)
--- NOTE | 2019-09-26 19:10 | NUR ---
RECEIVED BEDSIDE SHIFT REPORT FROM PREVIOUS NURSE. CALL LIGHT WITHIN REACH. PATIENT IN BED. PATIENT IS A&OX3 AND AMBULATES
[2019-09-26 20:03] LABS: BILIRUBIN,DIRECT 7.7 mg/dL (0.0-0.5)
[2019-09-26 20:13] LABS: FERRITIN 907.86 ng/mL (21.81-274.66)
[2019-09-26 20:20] VITALS: BP 96/59
[2019-09-26] MEDS ORDERED: MIDODRINE HCL10 MG (20:49)
[2019-09-26] MEDS ORDERED: PANTOPRAZOLE SO40 MG (20:49)
--- NOTE | 2019-09-26 20:55 | Diagnostic Imaging Report ---
EXAM: Complete Abdominal Ultrasound INDICATION: History of cirrhosis and anemia who presents with abdominal pain. COMPARISON: Multiple prior abdominal ultrasounds. CT abdomen/pelvis on 05/27/2018. TECHNIQUE: Transverse and longitudinal images of the upper abdomen were obtained. FINDINGS: Liver: Size: 19.5 cm in the right midclavicular line, enlarged Appearance: Diffusely echogenic with nodular contour. Mass: No focal masses Spleen: Size: 16.5 cm in length, enlarged Echogenicity: Normal Mass: No focal masses Gallbladder: Stones/Sludge: There is sludge and multiple gallstones. Wall: 0.3 cm Appearance: No pericholecystic fluid or hydrops. Sonographic Cooper's Sign: Negative Bile Ducts: Intrahepatic Ducts: No dilatation Extrahepatic Ducts: Common bile duct measures 0.4 cm, no dilatation Pancreas: Visualized portions of the pancreatic head, neck and proximal body are normal. Right Kidney: Size: 11.5 x 5.8 x 4.9 cm Echogenicity: Normal Parenchymal thickness: Normal Collecting System: No hydronephrosis Stone: None Cyst/Mass: None Left Kidney: Size: 11.1 x 5.4 x 5.5 cm Echogenicity: Normal Parenchymal thickness: Normal Collecting System: No hydronephrosis Stone: None Cyst/Mass: None Vessels: Aorta: Visualized portions are normal Inferior Vena Cava: Visualized portions are normal Main Portal Vein: 1.2 cm, normal size with hepatopetal flow. Free Fluid: There is trace ascites. No pleural effusion. IMPRESSION: 1. Hepatosplenomegaly with trace ascites. No focal hepatic mass identified. 2. Cholelithiasis without evidence of cholecystitis. LV hyper to kid LV hypo to spleen Elias hyper to LV Liver Male < 16 cm Female < 15 cm Kidneys: NL 9-12 cm, <13 cm Spleen < 12 cm CBD < 7 mm CHD < 4-5 mm GB Wall < 3 mm Hydrops > 10 x 5 cm PV < 13 mm Panc. duct 3-2-1 Signed by: Eb Keith MD on 09/26/2019 8:52 PM
[2019-09-26] MEDS ORDERED: TRAZODONE HCL 50 MG TAB PO SCH (21:00)
--- OUTSIDE RECORDS SUMMARY | 2019-09-26 21:10 | XMS REPORT | Clinical Summary ---
Author Author PATY YammerSt. Luke'S Boise Medical CenterGetableEureka Springs HospitalByclerNorthern State Hospital Address Unknown Phone Unavailable Care Team Providers Care Retail Performance Specialist Name Role Phone Keith Hammond Unavailable Pcp, No PCP Unavailable Allergies Comments Active Allergy Reactions Severity Noted Date Prednisone 05/04/2019 Ceftriaxone Rash Medium 01/06/2019 Medications End Date Status Medication Sig Dispensed Refills Start Date 11/07/2019 Active folic acid (FOLVITE) 1 MG Take 1 tablet 0 10/27 tablet (1 mg total) 9 by mouth daily. Active lactulose (CHRONULAC) 20 Take 45 mLs 4000 mL 1 1 gram/30 mL solution (30 g total) 9 by mouth 3 (three) times daily. Active midodrine (PROAMATINE) 10 Take 1 tablet 90 tablet 1 MG tablet (10 mg total) 9 by mouth 3 (three) times daily. 01/06/2020 Active diphenhydrAMINE-zinc Apply 28.4 g 0 01/06 acetate (BENADRYL EXTRA topically 3 9 STRENGTH) 2-0.1 % cream (three) times daily as needed for Itching. Active traMADol (ULTRAM) 50 mg TK 1 T PO Q 8 1 tablet H PRN P 9 Active thiamine 100 MG Take 1 tablet 30 tablet 5 02/05/20 1 tabletIndications: (100 mg 9 Alcoholic hepatitis with total) by ascites, Portal mouth daily. hypertension (HCC) Active pantoprazole (PROTONIX) Take 1 tablet 0 40 MG tablet (40 mg total) 0 by mouth 2 (two) times daily. Active furosemide (LASIX) 10 Take by mouth 0 mg/mL solution daily. Active traZODone (DESYREL) 50 MG Take 50 mg by 0 tablet mouth nightly. 10/16/2018 Discontinued cholecalciferol 2,000 Take 1 tablet 0 07/11/19 1 unit Tab (2,000 Units 9 total) by mouth daily. 10/16/2018 Discontinued dextrose 50 % in water Inject 25 mLs 0 01 (DEXTROSE 50%, D50W,) (12.5 g 9 Syrg injection total) intravenously as needed (blood sugar less than 70 and patient unable to take PO juice or soda). 10/16/2018 Discontinued glucagon, human Inject 1 mL 0 recombinant, 1 mg/mL SolR (1 mg total) 9 injection intramuscular ly as needed (blood sugar less than 70, patient unable to take PO, AND unable to give D50W if no IV). 10/16/2018 Discontinued hydrogen peroxide 3 % Apply 120 mL 0 06/26 external solution topically as 9 needed. 10/16/2018 Discontinued insulin lispro (HUMALOG) Inject 0-16 10 mL 0 0 100 unit/mL injection Units 9 subcutaneousl y as needed (High blood sugar). 10/16/2018 Discontinued ipratropium-albuterol Take 3 mLs by 0 07/10/19 1 (DUO-NEB) 0.5 mg-3 mg(2.5 nebulization 9 mg base)/3 mL nebulizer every 6 (six) solution hours for 360 days. 07/10/2019 multivitamin (THERAGRAN) Take 1 tablet 0 07/10 tablet by mouth 9 daily. 10/16/2018 Discontinued pantoprazole (PROTONIX) Inject 40 mg 0 in D5W (MBP) IVPB intravenously 9 daily. 10/16/2018 Discontinued insulin glargine (LANTUS Inject 18 0 07/09 SOLOSTAR U-100 INSULIN) Units 9 100 unit/mL (3 mL) InPn subcutaneousl y nightly. 11/07/2018 Discontinued furosemide (LASIX) 10 Inject 2 mLs 0 07/11/19 1 mg/mL injection (20 mg total) 9 intravenously daily as needed (significant edema) Patient with hypotension, on midodrine. Need to watch BPs. 10/16/2018 Discontinued melatonin 3 mg Tab tablet Take 3 0 06/26 tablets (9 mg 9 total) by mouth every night as needed. 11/07/2018 Discontinued traZODone (DESYREL) 100 Take 100 mg 0 MG tablet by mouth nightly. 11/07/2018 Discontinued lactulose (CHRONULAC) 20 Take 20 g by 0 gram/30 mL solution mouth 3 (three) times daily Titrate to 3 BM's/day . 11/07/2018 Discontinued furosemide (LASIX) 20 MG Take 40 mg by 0 tablet mouth daily. 12/26/2018 Discontinued lactulose (CHRONULAC) 20 Take 45 mLs 0 11/07 gram/30 mL solution (30 g total) 9 by mouth 3 (three) times daily. 12/07/2018 traZODone (DESYREL) 50 MG Take 1 tablet 0 10/27 tablet (50 mg total) 9 by mouth every night as needed for up to 30 days. 11/14/2018 benzonatate (TESSALON) Take 1 20 capsule 0 100 MG capsule capsule (100 9 mg total) by mouth 3 (three) times daily for 7 days. 11/17/2018 guaiFENesin (ROBITUSSIN) Take 10 mLs 120 mL 0 0 100 mg/5 mL syrup (200 mg 9 total) by mouth every 4 (four) hours as needed for Congestion for up to 10 days. 12/26/2018 Discontinued ipratropium (ATROVENT) Take 2.5 mLs 75 mL 0 0.02 % nebulizer solution (0.5 mg 9 total) by nebulization every 6 (six) hours as needed. 12/26/2018 Discontinued levoFLOXacin (LEVAQUIN) Inject 50 mLs 0 IVPB 250 mg in dextrose (250 mg 9 5% (D5W) 50 mL total) intravenously daily. 12/26/2018 Discontinued melatonin 3 mg Tab tablet Take 2 0 / 2 tablets (6 mg 9 total) by mouth every night as needed. 12/07/2018 midodrine (PROAMATINE) 5 Take 1 tablet 0 11/07 MG tablet (5 mg total) 9 by mouth 3 (three) times daily for 30 days. 12/26/2018 Discontinued octreotide (SANDOSTATIN) Inject 1 mL 0 11/07 100 mcg/mL Soln (100 mcg 9 total) subcutaneousl y 3 (three) times daily. 05/10/2019 Discontinued pantoprazole (PROTONIX) Take 1 tablet 0 40 MG tablet (40 mg total) 9 by mouth daily. 12/26/2018 Discontinued phytonadione 0.8 mg/mL Take 6.25 mLs 0 01 Soln ORAL solution (5 mg total) 9 by mouth daily. 12/26/2018 Discontinued thiamine (B-1) 100 mg/mL Inject 1 mL 25 mL 0 0 injection (100 mg 9 total) intravenously daily. 11/15/2018 heparin injection 1,000 1-3.6 mLs 1 mL 0 units/mL for IV (1,000-3,600 9 bolus/dialysis lock Units total) by Intra-Cathete r route once as needed (hemodialysis acute catheter packing) for up to 1 dose. 12/26/2018 Discontinued traZODone (DESYREL) 50 MG Take 50 mg by 0 tablet mouth nightly. 12/26/2018 Discontinued midodrine (PROAMATINE) 10 Take 10 mg by 0 MG tablet mouth 3 (three) times daily. 02/04/2019 Discontinued UNKNOWNIndications: as needed Pt 0 nausea takes dissolving tablet for nausea, unsure of name . 02/04/2019 Discontinued UNKNOWN daily Pt 0 states he takes a medication to suppress his alcohol cravings . 12/26/2018 Discontinued ondansetron (ZOFRAN-ODT) Take 4 mg by 0 4 MG disintegrating mouth every 6 tablet (six) hours as needed for Nausea. 02/04/2019 Discontinued thiamine 100 MG tablet Take 1 tablet 30 tablet 1 1 (100 mg 9 total) by mouth daily. 12/29/2018 ciprofloxacin HCl (CIPRO) Take 1 tablet 3 tablet 0 500 MG tablet (500 mg 9 total) by mouth daily for 3 days. 02/04/2019 Discontinued phytonadione, vitamin K1, Take 1 tablet 30 tablet 1 (MEPHYTON) 5 mg tablet (5 mg total) 9 by mouth daily. 02/15/2019 hydrOXYzine (ATARAX) 25 Take 1 tablet 30 tablet 0 MG tabletIndications: (25 mg total) 9 Pruritus by mouth every 6 (six) hours as needed for Itching for up to 30 days. 05/10/2019 Discontinued FUROSEMIDE ORAL Take 80 mg by 0 mouth daily . 05/22/2019 colchicine (COLCRYS) 0.6 Take 1 tablet 11 tablet 1 mg tablet (0.6 mg 0 total) by mouth daily for 11 days. Active Problems Problem Noted Date Sepsis 05/04/2019 Symptomatic anemia 01/17/2019 Tubular adenoma 01/17/2019 Rash 01/17/2019 Screening for cancer 01/17/2019 Alcohol use disorder, mild, abuse 01/17/2019 Pedal edema 01/17/2019 Hepatic encephalopathy 01/17/2019 Alcoholic hepatitis 01/17/2019 Alcoholic cirrhosis 12/21/2018 Sepsis, unspecified organism 12/21/2018 ESRD (end stage renal disease) 12/21/2018 Liver failure 10/16/2018 Acute blood loss anemia 06/26/2018 GIB (gastrointestinal bleeding) 06/21/2018 Hemorrhagic shock 06/21/2018 Hyperbilirubinemia 06/01/2018 Obesity Fatty liver Dark emesis Hypotension due to hypovolemia Acute renal failure with tubular necros is ESRD (end stage renal disease) on dialy sis ESRD on hemodialysis Resolved Problems Problem Noted Date Resolved Date Respiratory center failure 06/01/2018 12/23/2018 Acute respiratory failure with hypoxia 06/01/2018 12/23/2018 ARDS (adult respiratory distress syndrome) 06/01/2018 12/23/2018 Acute kidney injury 06/01/2018 12/23/2018 Hyponatremia 06/01/2018 12/23/2018 Hypertension 12/23/2018 Encounters Care Team Description Date Type Specialty Anastacio Killian Appointment 07/28/2019 Telephone Transplant Hepatolo gy Michael Blount LCSW Social Work 07/18/2019 Telephone Transplant Hepatolo gy Malina Mcmillan RN Follow-up 07/18/2019 Telephone Transplant Hepatolo gy Shonda Strauss MD MPH Alcoholic cirrhosis of liver with ascite s (HCC) (Primary Dx); Portal hypertension (HCC); Screening for malignant neoplasm; Immunity status testing; Immunization counseling; Alcohol use; ESRD on hemodialysis (HCC) 06/17/2019 Audio - Transplant Hepatolo gy Dorothy Coyne Appointment 06/16/2019 Telephone Transplant Anastacio Killian Appointment 06/16/2019 Telephone Transplant Hepatolo gy Katie Conde MA 06/06/2019 Abstract Transplant Hepatolo gy Anastacio Killian Appointment (inform of labs appt) 06/04/2019 Telephone Transplant Hepatolo gy Ariana Schwartz 06/02/2019 Documentation Transplant Bib Dumont RN Alcoholic cirrhosis of liver with ascite s (HCC) (Primary Dx); ESRD on hemodialysis (HCC) 06/02/2019 Orders Only Transplant Hepatolo gy Lauri Harris LCSW 05/28/2019 Social Work Transplant Hepatolo gy Emily Vazquez, KATHERINE 05/27/2019 Documentation Transplant Nay Monroe, KATHERINE 05/27/2019 Abstract Transplant Hepatolo gy Emily Vazquez, KATHERINE 05/27/2019 Documentation Transplant Bib Dumont RN 05/27/2019 Documentation Transplant Hepatolo gy Erik De Leon MD Inactivated for transplant 05/27/2019 Telephone Hepatology Bib Dumont RN 05/27/2019 Documentation Transplant Hepatolo gy Devyn Lantigua MD 05/23/2019 Hospital Radiology Encounter Devyn Lantigua MD Alcoholic hepatitis with ascites; Fatty liver 05/23/2019 Orders Only Lab Malina Mcmillan RN 05/23/2019 Abstract Transplant Hepatolo gy Abby Osei, SARAH 05/23/2019 Abstract Transplant Hepatolo gy Abby Osei, SARAH 05/23/2019 Abstract Transplant Hepatolo gy Abby Osei, SARAH 05/23/2019 Abstract Transplant Hepatolo gy Malina Mcmillan RN Screening for cancer (Primary Dx); Awaiting organ transplant status; Alcoholic cirrhosis of liver with ascites (HCC) 05/22/2019 Orders Only Transplant Hepatolo gy Malina Mcmillan RN Screening for cancer 05/22/2019 Orders Only Transplant Hepatolo gy Bib Dumont RN 05/16/2019 Documentation Transplant Hepatolo gy Marissa Mixon Labs Only 05/15/2019 Telephone Transplant Hepatolo gy Marissa Mixon Labs Only 05/15/2019 Telephone Transplant Hepatolo gy Katie Garsia, KATHERINE 05/14/2019 Documentation Transplant Hepatolo gy Katie Garsia, KATHERINE 05/14/2019 Documentation Transplant Hepatolo gy Bib Dumont RN Alcoholic hepatitis with ascites (Primar y Dx); Fatty liver; ESRD on hemodialysis (HCC) 05/14/2019 Orders Only Transplant Hepatolo gy Delores Schaefer, RN 05/14/2019 Documentation Transplant Devyn Lantigua MD Fuller, Arian [place], NP Screening for cancer (Primary Dx); Alcoholic cirrhosis of liver with ascites (HCC); Hepatic encephalopathy (HCC); Tubular adenoma 05/13/2019 Office Visit Hepatology uDy Elizabeth L 05/13/2019 Documentation Transplant Abby Osei MA Appointment (SCREENED ) 05/13/2019 Telephone Hepatology Lauri Harris LCSW 05/13/2019 Social Work Transplant Hepatolo gy Bib Dumont RN 05/13/2019 Documentation Transplant Hepatolo gy Carley Boston PA 05/12/2019 Documentation Hepatology Marissa Mixon Appointment 05/12/2019 Telephone Transplant Hepatolo gy Marissa Mixon Appointment (LVM asking pt to return my call, clinic scheduling needed.) 05/12/2019 Telephone Central Scheduling Placido Zimmerman MD Liver Transplant Evaluation 05/10/2019 Telephone Hepatology Connie Christensen Appointment 05/08/2019 Telephone Transplant Connie Christensen 05/08/2019 Telephone Transplant Robbie New MD PERICARDIOCENTESIS 05/07/2019 Surgery GaMarj carrera MD 05/06/2019 Anesthesia Gastroenterology Event Zainab Alves MD UPPER ENDOSCOPY 05/06/2019 Surgery Gastroenterology Radha Mera, KATHERINE Appointment 05/06/2019 Telephone Transplant 05/05/2019 Travel Marissa Mixon Appointment 05/05/2019 Telephone Transplant Hepatolo Marissa Denis Appointment 05/05/2019 Telephone Transplant Hepatolo gy 05/05/2019 Orders Only General Internal Me Juanpablo Holland MD Tran, Clarke Newell MD Sepsis due to other etiology (HCC) (Prim una Dx); Anemia due to other cause, not classified; Chronic kidney disease with end stage renal failure on dialysis (HCC); Acute hyponatremia; Pre-transplant evaluation for liver transplant; Hypotension due to hypovolemia; ESRD (end stage renal disease) on dialysis (HCC); Symptomatic anemia 05/04/2019 Hospital Cardiology - Encounter 05/10/2019 05/04/2019 Marissa Troy Labs Only (LVM asking pt tor return my c all, labs are due.) 05/02/2019 Telephone Transplant Bib Roger RN Alcoholic hepatitis with ascites (Primar y Dx); Fatty liver 04/08/2019 Orders Only Transplant Bib Roger RN 04/08/2019 Documentation Transplant Devyn Velasco MD Alcoholic hepatitis with ascites; ESRD on hemodialysis (HCC) 04/07/2019 Orders Only Transplant Bib Roger RN 04/07/2019 Documentation Transplant HepatNorma Verdininda 04/07/2019 Documentation Transplant Bib Dumont RN 04/04/2019 Documentation Transplant Bib Roger RN Alcoholic hepatitis with ascites (Primar y Dx); ESRD on hemodialysis (HCC) 04/04/2019 Orders Only Transplant Radha Flowers RN 04/04/2019 Documentation Transplant Servando Romano RN 04/04/2019 Documentation Transplant Servando Romano RN Committee Review 04/02/2019 Telephone Transplant Marissa Mixon Appointment (Spoke with pt appt date upd ated, itinerary mailed to pt.) 04/01/2019 Telephone Transplant Servando Handley RN 03/18/2019 Documentation Transplant Devyn Lantigua MD Dunn, Parxann Marie, PA Alcoholic cirrhosis of liver without asc ites (HCC) (Primary Dx); Fatty liver; Alcoholic hepatitis, unspecified whether ascites present; Hepatic encephalopathy (HCC); ESRD on hemodialysis (HCC); Tubular adenoma; Screening for cancer; Pedal edema; Iron deficiency anemia, unspecified iron deficiency anemia type; Alcohol use disorder, mild, abuse 03/14/2019 Office Visit Hepatology uX Pino RN 03/13/2019 Abstract Transplant Devyn Velasco MD Alcoholic cirrhosis of liver with ascite s (HCC); Iron deficiency anemia, unspecified iron deficiency anemia type 03/04/2019 Orders Only Transplant Martha Donaldson RN Iron deficiency anemia, unspecified iron deficiency anemia type (Primary Dx); Alcoholic cirrhosis of liver with ascites (HCC) 03/03/2019 Orders Only Transplant Martha Donaldson RN 02/07/2019 Documentation Transplant HepatGena Koenig MD Mindikoglu, Ayse Leyla, MD MPH Alcoholic hepatitis with ascites (Primar y Dx); Portal hypertension (HCC); Fatty liver; Portal hypertensive gastropathy (HCC); Immunity status testing; Immunization counseling; Tubular adenoma of colon; Screening for malignant neoplasm; Acute alcoholic hepatitis; Rash; ESRD on hemodialysis (HCC); Abnormal findings on diagnostic imaging of abdomen 02/04/2019 Follow-Up Transplant Jessie Philippe 02/04/2019 Documentation Transplant Gena Gordon MD Fatty liver; ESRD (end stage renal disease) (HCC); Acute blood loss anemia 02/03/2019 Orders Only Transplant Gena Gordon MD ESRD (end stage renal disease) (HCC); Pre-transplant evaluation for end stage renal disease 02/03/2019 [facility] Radiology Encounter System, Provider Not In 02/03/2019 Outside Orders Martha Oquendo RN Fatty liver (Primary Dx); ESRD (end stage renal disease) (HCC); Acute blood loss anemia 01/24/2019 Orders Only Transplant Servando Handley RN ESRD (end stage renal disease) (HCC) (Pr imary Dx) 01/22/2019 Orders Only Transplant Jessie Emery Appointment (LVM. Called to confirm [facility] f/u appt wpt. Itinerary mailed.) 01/20/2019 Telephone Transplant Alejandrina Quiroga MD Hasan, Syed Ali Reza, MD Khaderi, Perri Butterfield MD Anemia due to chronic kidney disease, on chronic dialysis (HCC) (Primary Dx); Alcoholic cirrhosis of liver without ascites (HCC); ESRD (end stage renal disease) (HCC); Gastrointestinal hemorrhage with melena 01/17/2019 Hospital Cardiology - Encounter 01/18/2019 01/17/2019 Travel Ye Pool MD 01/17/2019 Orders Only Internal Medicine Martha Oquendo RN 01/17/2019 Orders Only Transplant Martha Donaldson RN Direct admission for anemia 01/17/2019 Telephone Transplant Gena Gordon MD Pandya, Aashish Mahesh, MD Pre-transplant evaluation for end stage renal disease (Primary Dx) 01/16/2019 Evaluation Transplant Gena Maldonado MD ESRD (end stage renal disease) (HCC); Pre-transplant evaluation for end stage renal disease 01/16/2019 Orders Only Transplant Hepatjuanito Lantigua, MD Darvin Sethi Parxann Marie, PA Pruritus (Primary Dx); Alcoholic cirrhosis of liver without ascites (HCC); Fatty liver; ESRD on hemodialysis (HCC); Hyperbilirubinemia; Anemia, unspecified type; Tubular adenoma; Rash; Screening for cancer; Alcohol use disorder, mild, abuse; Pedal edema; Hepatic encephalopathy (HCC); Alcoholic hepatitis, unspecified whether ascites present 01/16/2019 Office Visit Hepatology Polly Rojas 01/06/2019 Telephone Transplant Jessie Emery Appointment (Confirmed 01/16 hospital f/ u appt w/pt.) 01/06/2019 Telephone Transplant Hepatjuanito thayer 01/04/2019 Travel Pratik Valdez MD Daniel, Jamuna V., MD Acute blood loss anemia (Primary Dx); ESRD (end stage renal disease) on dialysis (HCC); Alcoholic cirrhosis of liver without ascites (HCC); Thrombocytopenia (HCC); Chronic hypotension; Fatty liver; Gastrointestinal hemorrhage with melena; Portal hypertension (HCC); Alcohol abuse; Anemia, unspecified type; Hemorrhoids, unspecified hemorrhoid type 01/03/2019 [facility] Cardiology - Encounter 01/06/2019 01/03/2019 Travel Jessie Emery Appointment (LVM. Calling to inform pt we have cancelled his 01/07 clinic appt and rescheduled him to 01/16 @ 2 pm. Itinerary mailed to pt.) 01/02/2019 Telephone Transplant HepatPolly Talbert Appointment 01/01/2019 Telephone Transplant Servando Romano RN ESRD (end stage renal disease) (HCC) (Pr imary Dx); Pre-transplant evaluation for end stage renal disease 12/27/2018 Orders Only Transplant Hemalatha Alfredo 12/26/2018 Abstract Transplant Víctor Dumont MD Siddique, Muhammad Asim, MD Varughese, Roy, MD Omranian, Ali, MD Acute blood loss anemia (Primary Dx); Chronic liver failure without hepatic coma (HCC); ESRD (end stage renal disease) on dialysis (HCC); Alcoholic cirrhosis of liver with ascites (HCC); ESRD (end stage renal disease) (HCC); Acute renal failure with tubular necrosis (HCC); Fatty liver; Gastrointestinal hemorrhage with melena; Class 1 obesity due to excess calories without serious comorbidity with body mass index (BMI) of 33.0 to 33.9 in adult; Portal hypertension (HCC) 12/21/2018 [facility] dicine - Encounter 12/26/2018 12/21/2018 Orders Only [facility] dicine 12/21/2018 Travel Jessie Emery Appointment ([facility] for case management specialist Annika doug (pt currently admitted @ [place]) Scheduled 12/17 clinic appt @ 9:30. Itinerary mailed to pt.) 11/18/2018 Telephone Transplant Hepatolo gy Jessie Emery 11/12/2018 Documentation Transplant Hepatolo gy Nasra Cavazos 11/11/2018 Documentation Transplant Hepatolo gy Emma Silva CRNA 11/10/2018 Anesthesia Gastroenterology Event Devyn Lantigua MD COLONOSCOPY,BIOPSY 11/10/2018 [facility] Transplant Hepatolo gy Drake Garcia Jr., MD 11/07/2018 Abstract Transplant Hepatolo gy Delores Rucker MD 10/19/2018 Anesthesia Gastroenterology Event Shy Parisi MD COLONOSCOPY,BIOPSY 10/19/2018 Surgery Gastroenterology 10/17/2018 Orders Only [facility] Minal Andrews MD Neason, Chau Le, MD Acute blood loss anemia; Hyperbilirubinemia; Acute on chronic alcoholic liver disease (HCC); Fatty liver; Alcoholic cirrhosis of liver with ascites (HCC); Alcohol use disorder, moderate, dependence (HCC); Jaundice; Ascites due to alcoholic hepatitis; Colon ulcer; Acute kidney injury (HCC); Class 1 obesity due to excess calories without serious comorbidity with body mass index (BMI) of 33.0 to 33.9 in adult; Acute renal failure with tubular necrosis (HCC); Chronic liver failure with hepatic coma (HCC) 10/16/2018 [facility] dicine - Encounter 11/15/2018 10/16/2018 Travel Minal Taylor MD Abdominal Pain 10/16/2018 Telephone Critical Care Medic ine after 09/25/2018 Family History Medical History Relation Name Comments No Known Problem Brother Hypertension Father Hypertension Mother No Known Problem Son Relation Name Status Comments Brother Alive Father Mother Alive Son Alive Social History Date Tobacco Use Types Packs/Day Years Used Never Smoker Smokeless Tobacco: Never Used Alcohol Use Drinks/Week oz/Week Comments No quit in 09/2018 Sex Assigned at Date Recorded Not on file Industry Job Start Date Occupation Not on file Not on file Not on file Travel End Travel History Travel Start No recent travel history available. Last Filed Vital Signs Time Taken Vital Sign Reading 05/13/2019 10:59 AM CDT Blood Pressure 115/69 05/13/2019 10:59 AM CDT Pulse 90 05/13/2019 10:59 AM CDT Temperature 36.9 C (98.5 F) 05/13/2019 10:59 AM CDT Respiratory Rate 18 05/13/2019 10:59 AM CDT Oxygen Saturation 100% 05/10/2019 8:10 AM CDT Inhaled Oxygen 21% Concentration 05/13/2019 10:59 AM CDT Weight 86.2 kg (190 lb 1.6 oz) 05/13/2019 10:59 AM CDT Height 180.3 cm (5' 11") 05/13/2019 10:59 AM CDT Body Mass Index 26.51 Plan of Treatment Health Maintenance Due Date Last Done Comments PNEUMOCOCCAL VACCINE 2-64 1984 YEARS AT RISK (1 of 3 - PCV13) INFLUENZA VACCINE (#1) 2019 LIPID PANEL 06/18/2021 06/18/2018 Procedures Comments Procedure Name Priority Date/Time Associated Diag nosis MR ABDOMEN WITH & WITHOUT Routine 05/23/2019 Scre ening for cancer IV CONTRAST 12:08 PM CDT CBC W/PLT COUNT & AUTO Routine 05/23/2019 Alcohol ic hepatitis with DIFFERENTIAL 9:03 AM CDT ascites Fatty liver PROTHROMBIN TIME/INR Routine 05/23/2019 Alcoholic hepatitis with 9:03 AM CDT ascites Fatty liver HEPATIC FUNCTION PANEL Routine 05/23/2019 Alcohol ic hepatitis with 9:03 AM CDT ascites Fatty liver CBC W/PLT COUNT & AUTO Routine 05/23/2019 Alcohol ic hepatitis with DIFFERENTIAL 9:03 AM CDT ascites Fatty liver BASIC METABOLIC PANEL (7) Routine 05/23/2019 Alco holic hepatitis with 9:03 AM CDT ascites Fatty liver RHYTHM STRIP - SCAN 05/15/2019 4:11 PM CDT CBC W/PLT COUNT & AUTO Routine 05/14/2019 Alcohol ic hepatitis with DIFFERENTIAL 9:30 AM CDT ascites Fatty liver BILIRUBIN, DIRECT Routine 05/14/2019 Alcoholic ci rrhosis of 9:30 AM CDT liver with ascites (HCC) BASIC METABOLIC PANEL (7) Routine 05/14/2019 Alco holic hepatitis with 9:30 AM CDT ascites Fatty liver CBC W/PLT COUNT & AUTO Routine 05/14/2019 Alcohol ic hepatitis with DIFFERENTIAL 9:30 AM CDT ascites Fatty liver HEPATIC FUNCTION PANEL Routine 05/14/2019 Alcohol ic hepatitis with 9:30 AM CDT ascites Fatty liver PROTHROMBIN TIME/INR Routine 05/14/2019 Alcoholic hepatitis with 9:30 AM CDT ascites Fatty liver MISCELLANEOUS LAB ORDER Routine 05/14/2019 Alcoho lic hepatitis with 9:30 AM CDT ascites Fatty liver ESRD on hemodialysis (HCC) REPORT OF PROCEDURE - 05/13/2019 ENDOSCOPY SCAN 11:03 AM CDT RHYTHM STRIP - SCAN 05/12/2019 3:11 PM CDT REPORT OF PROCEDURE - 05/12/2019 ENDOSCOPY SCAN 3:10 PM CDT CARDIAC CATH REPORT - 05/12/2019 SCAN 3:10 PM CDT PHOSPHORUS Routine 05/10/2019 5:22 AM CDT MAGNESIUM Routine 05/10/2019 5:22 AM CDT NM MYOCARDIAL PERFUSION Routine 05/09/2019 PET/CT (REST & STRESS) 2:55 PM CDT TREADMILL Routine 05/09/2019 TOLERANCE(NON-NUCLEAR 2:24 PM CDT TREADMILL) HEMODIALYSIS INPATIENT Routine 05/09/2019 7:47 AM CDT CBC W/PLT COUNT & AUTO TABATHA 05/09/2019 DIFFERENTIAL 5:35 AM CDT CBC W/PLT COUNT & AUTO TABATHA 05/09/2019 DIFFERENTIAL 5:35 AM CDT COMPREHENSIVE METABOLIC TABATHA 05/09/2019 PANEL 5:35 AM CDT PHOSPHORUS Routine 05/09/2019 5:35 AM CDT MAGNESIUM Routine 05/09/2019 5:35 AM CDT TRANSFUSION SERVICE 05/08/2019 REPORT - SCAN 5:52 PM CDT LIMITED 2D ECHOCARDIOGRAM STAT 05/08/2019 11:40 AM CDT (CELLAVISION MANUAL DIFF) Routine 05/08/2019 3:02 AM CDT CBC W/PLT COUNT & AUTO Routine 05/08/2019 DIFFERENTIAL 3:02 AM CDT BASIC METABOLIC PANEL (7) Routine 05/08/2019 3:02 AM CDT CBC W/PLT COUNT & AUTO Routine 05/08/2019 DIFFERENTIAL 3:02 AM CDT PHOSPHORUS Routine 05/08/2019 3:02 AM CDT MAGNESIUM Routine 05/08/2019 3:02 AM CDT PROCALCITONIN Routine 05/08/2019 3:02 AM CDT HEMODIALYSIS INPATIENT Routine 05/08/2019 12:48 AM CDT PREPARE LEUKO-REDUCED RBC Routine 05/07/2019 11:54 PM CDT PERIPHERAL VASCULAR 05/07/2019 REPORT - SCAN 9:12 PM CDT PERICARDIOCENTESIS 05/07/2019 Coronary artery di sease 8:33 PM CDT with angina pectoris, unspecified vessel or lesion type, unspecified whether [place] or transplanted heart (HCC) BODY FLUID CULTURE + GRAM STAT 05/07/2019 STAIN 7:20 PM CDT CYTOLOGY STAT 05/07/2019 7:20 PM CDT 2D ECHO W/ DOPPLER STAT 05/07/2019 (CW/PW/COLOR) 6:32 PM CDT TRANSFUSION SERVICE 05/07/2019 REPORT - SCAN 5:52 PM CDT (CELLAVISION MANUAL DIFF) Routine 05/07/2019 6:42 AM CDT CBC W/PLT COUNT & AUTO Routine 05/07/2019 DIFFERENTIAL 6:42 AM CDT COMPREHENSIVE METABOLIC Routine 05/07/2019 PANEL 6:42 AM CDT CBC W/PLT COUNT & AUTO Routine 05/07/2019 DIFFERENTIAL 6:42 AM CDT PREPARE LEUKO-REDUCED RBC Routine 05/06/2019 11:54 PM CDT TRANSFUSION SERVICE 05/06/2019 REPORT - SCAN 6:02 PM CDT CAROTID DOPPLER BILATERAL Routine 05/06/2019 4:05 PM CDT REPORT OF PROCEDURE - 05/06/2019 ENDOSCOPY URL 1:43 PM CDT 2D ECHO W/ DOPPLER STAT 05/06/2019 (CW/PW/COLOR) 1:06 PM CDT UPPER ENDOSCOPY 05/06/2019 Gastrointestinal 10:00 AM CDT hemorrhage, unspecified gastrointestinal hemorrhage type (CELLAVISION MANUAL DIFF) Routine 05/06/2019 4:52 AM CDT CBC W/PLT COUNT & AUTO Routine 05/06/2019 DIFFERENTIAL 4:52 AM CDT MAGNESIUM Routine 05/06/2019 4:52 AM CDT COMPREHENSIVE METABOLIC Routine 05/06/2019 PANEL 4:52 AM CDT CBC W/PLT COUNT & AUTO Routine 05/06/2019 DIFFERENTIAL 4:52 AM CDT TRANSFUSE LEUKO-REDUCED Routine 05/06/2019 RED BLOOD CELLS 3:24 AM CDT CBC W/PLT COUNT & AUTO STAT 05/05/2019 DIFFERENTIAL 9:10 PM CDT CBC W/PLT COUNT & AUTO STAT 05/05/2019 DIFFERENTIAL 9:10 PM CDT TROPONIN I STAT 05/05/2019 9:09 PM CDT MAGNESIUM STAT 05/05/2019 9:09 PM CDT BASIC METABOLIC PANEL (7) STAT 05/05/2019 9:09 PM CDT ECG 12-LEAD Routine 05/05/2019 8:53 PM CDT ECG 12-LEAD Routine 05/05/2019 8:53 PM CDT Procedure Note - Interface, External Ris In - 05/05/2019 8:58 PM CDT Ventricula r Rate 128 BPM Atrial Rate 89 BPM QRS Duration 94 ms Q-T Interval 336 ms QTC Calculatio n(Bazett) 490 ms R [place] 151 degrees T [place] -88 degrees Undetermi lara rhythm Left posterior fascicular block ST & T wave abnormalit y, consider inferior ischemia ST & T wave abnormalit y, consider anterolate ral ischemia Abnormal ECG When compared with ECG of 0 20:52, Current undetermin ed rhythm precludes rhythm comparison , needs review Inverted T waves have replaced nonspecifi c T wave abnormalit y in Inferior leads Inverted T waves have replaced nonspecifi c T wave abnormalit y in Anterolate ral leads ECG 12-LEAD Routine 05/05/2019 8:52 PM CDT Procedure Note - Interface, External Ris In - 05/05/2019 8:58 PM CDT Ventricula r Rate 128 BPM Atrial Rate 128 BPM QRS Duration 96 ms Q-T Interval 180 ms QTC Calculatio n(Bazett) 262 ms R [place] 153 degrees T [place] -84 degrees Sinus tachycardi a with 1st degree A-V block Left posterior fascicular block Nonspecifi c ST and T wave abnormalit y Abnormal ECG When compared with ECG of 0 19:34, Sinus rhythm has replaced Atrial flutter Left posterior fascicular block is now Present ST now depressed in Inferior leads ECG 12-LEAD STAT 05/05/2019 8:52 PM CDT ECG 12-LEAD Routine 05/05/2019 7:34 PM CDT Procedure Note - Interface, External Ris In - 05/05/2019 7:36 PM CDT Ventricula r Rate 133 BPM Atrial Rate 241 BPM QRS Duration 94 ms Q-T Interval 344 ms QTC Calculatio n(Bazett) 511 ms P [place] 254 degrees R [place] 46 degrees T [place] -73 degrees Atrial flutter with variable A-V block T wave abnormalit y, consider inferior ischemia T wave abnormalit y, consider anterolate ral ischemia Abnormal ECG When compared with ECG of 0 19:32, Previous ECG has undetermin ed rhythm, needs review ECG 12-LEAD STAT 05/05/2019 7:34 PM CDT ECG 12-LEAD Routine 05/05/2019 7:32 PM CDT Procedure Note - Interface, External Ris In - 05/05/2019 7:36 PM CDT Ventricula r Rate 0 BPM Atrial Rate 0 BPM QRS Duration 0 ms Q-T Interval 0 ms QTC Calculatio n(Bazett) 0 ms R [place] 0 degrees T [place] 0 degrees No QRS complexes found, no ECG analysis possible When compared with ECG of 0 00:27, Current undetermin ed rhythm precludes rhythm comparison , needs review TRANSFUSION SERVICE 05/05/2019 REPORT - SCAN 5:52 PM CDT HEMODIALYSIS INPATIENT Routine 05/05/2019 3:16 PM CDT HEPATITIS B SURFACE TABATHA 05/05/2019 ANTIGEN 3:02 PM CDT OCCULT BLOOD, STOOL Routine 05/05/2019 12:07 PM CDT CBC W/PLT COUNT & AUTO Routine 05/05/2019 DIFFERENTIAL 9:51 AM CDT ABORH, MANUAL Routine 05/05/2019 9:51 AM CDT DIRECT AHG (LUMA)/DIRECT Routine 05/05/2019 ANTONIA 9:51 AM CDT IRON, TIBC, % SAT. Routine 05/05/2019 (WITHOUT FERRITIN) 9:51 AM CDT FERRITIN Routine 05/05/2019 9:51 AM CDT BILIRUBIN, DIRECT Routine 05/05/2019 9:51 AM CDT RETICULOCYTE COUNT Routine 05/05/2019 9:51 AM CDT COMPREHENSIVE METABOLIC Routine 05/05/2019 PANEL 9:51 AM CDT CBC W/PLT COUNT & AUTO Routine 05/05/2019 DIFFERENTIAL 9:51 AM CDT TRANSFUSE LEUKO-REDUCED Routine 05/05/2019 RED BLOOD CELLS 8:35 AM CDT TRANSFUSE LEUKO-REDUCED Routine 05/05/2019 RED BLOOD CELLS 1:08 AM CDT LACTIC ACID, VENOUS STAT 05/05/2019 12:29 AM CDT ECG 12-LEAD Routine 05/05/2019 12:27 AM CDT Procedure Note - Interface, External Ris In - 05/05/2019 2:19 AM CDT Ventricula r Rate 90 BPM Atrial Rate 90 BPM P-R Interval 146 ms QRS Duration 96 ms Q-T Interval 456 ms QTC Calculatio n(Bazett) 557 ms P [place] 45 degrees R [place] 33 degrees T [place] 29 degrees Normal sinus rhythm Nonspecifi c T wave abnormalit y Prolonged QT Abnormal ECG When compared with ECG of 9 01:18, Nonspecifi c T wave abnormalit y now evident in Anterior leads ECG 12-LEAD STAT 05/05/2019 12:27 AM CDT TYPE AND SCREEN, STAT 05/04/2019 AUTOMATED 8:42 PM CDT LEGIONELLA URINE ANTIGEN STAT 05/04/2019 7:53 PM CDT URINALYSIS W/ REFLEX STAT 05/04/2019 URINE CULTURE 7:53 PM CDT URINE CULTURE STAT 05/04/2019 7:53 PM CDT STREP PNEUMONIAE ANTIGEN STAT 05/04/2019 7:53 PM CDT CBC W/PLT COUNT & AUTO STAT 05/04/2019 DIFFERENTIAL 7:29 PM CDT PROCALCITONIN STAT 05/04/2019 7:29 PM CDT LACTIC ACID, VENOUS STAT 05/04/2019 7:29 PM CDT CBC W/PLT COUNT & AUTO STAT 05/04/2019 DIFFERENTIAL 7:29 PM CDT COMPREHENSIVE METABOLIC STAT 05/04/2019 PANEL 7:29 PM CDT TROPONIN I STAT 05/04/2019 7:29 PM CDT PT/APTT STAT 05/04/2019 7:29 PM CDT B-TYPE NATRIURETIC FACTOR STAT 05/04/2019 (BNP) 7:29 PM CDT PHOSPHORUS STAT 05/04/2019 7:29 PM CDT MAGNESIUM STAT 05/04/2019 7:29 PM CDT BLOOD CULTURE STAT 05/04/2019 7:29 PM CDT BLOOD CULTURE STAT 05/04/2019 7:29 PM CDT RAPID INFLUENZA A&B STAT 05/04/2019 SCREEN 7:28 PM CDT CRITICAL CARE Routine 05/04/2019 6:47 PM CDT XR CHEST 1 VIEW STAT 05/04/2019 PORTABLE/BEDSIDE 6:05 PM CDT CBC W/PLT COUNT & AUTO Routine 04/07/2019 Alcohol ic hepatitis with DIFFERENTIAL 9:34 AM SENIOR CENTER DIRECTOR ascites ESRD on hemodialysis (HCC) PROTHROMBIN TIME/INR Routine 04/07/2019 Alcoholic hepatitis with 9:34 AM SENIOR CENTER DIRECTOR ascites ESRD on hemodialysis (HCC) HEPATIC FUNCTION PANEL Routine 04/07/2019 Alcohol ic hepatitis with 9:34 AM SENIOR CENTER DIRECTOR ascites ESRD on hemodialysis (HCC) CBC W/PLT COUNT & AUTO Routine 04/07/2019 Alcohol ic hepatitis with DIFFERENTIAL 9:34 AM SENIOR CENTER DIRECTOR ascites ESRD on hemodialysis (HCC) BASIC METABOLIC PANEL (7) Routine 04/07/2019 Alco holic hepatitis with 9:34 AM SENIOR CENTER DIRECTOR ascites ESRD on hemodialysis (HCC) CBC W/PLT COUNT & AUTO Routine 03/14/2019 Alcohol ic cirrhosis of DIFFERENTIAL 10:32 AM SENIOR CENTER DIRECTOR liver without ascit es (HCC) PROTHROMBIN TIME/INR Routine 03/14/2019 Alcoholic cirrhosis of 10:32 AM SENIOR CENTER DIRECTOR liver without ascites (HCC) CBC W/PLT COUNT & AUTO Routine 03/14/2019 Alcohol ic cirrhosis of DIFFERENTIAL 10:32 AM SENIOR CENTER DIRECTOR liver without ascit es (HCC) HEPATIC FUNCTION PANEL Routine 03/14/2019 Alcohol ic cirrhosis of 10:32 AM SENIOR CENTER DIRECTOR liver without ascites (HCC) BASIC METABOLIC PANEL (7) Routine 03/14/2019 Alco holic cirrhosis of 10:32 AM SENIOR CENTER DIRECTOR liver without ascites (HCC) CBC W/PLT COUNT & AUTO Routine 03/04/2019 Iron de ficiency anemia, DIFFERENTIAL 10:00 AM SENIOR CENTER DIRECTOR unspecified iron deficiency anemia type COMPREHENSIVE METABOLIC Routine 03/04/2019 Alcoho lic cirrhosis of PANEL 10:00 AM SENIOR CENTER DIRECTOR liver with ascites (HCC) CBC W/PLT COUNT & AUTO Routine 03/04/2019 Iron de ficiency anemia, DIFFERENTIAL 10:00 AM SENIOR CENTER DIRECTOR unspecified iron deficiency anemia type BILIRUBIN, DIRECT Routine 03/04/2019 Alcoholic ci rrhosis of 10:00 AM SENIOR CENTER DIRECTOR liver with ascites (HCC) PROTHROMBIN TIME/INR Routine 03/04/2019 Alcoholic cirrhosis of 9:55 AM SENIOR CENTER DIRECTOR liver with ascites (HCC) COMPREHENSIVE METABOLIC Routine 02/03/2019 Fatty liver PANEL 10:13 AM SENIOR CENTER DIRECTOR BILIRUBIN, DIRECT Routine 02/03/2019 Fatty liver 10:13 AM SENIOR CENTER DIRECTOR CBC W/PLT COUNT & AUTO Routine 02/03/2019 ESRD (e nd stage renal DIFFERENTIAL 10:12 AM SENIOR CENTER DIRECTOR disease) (HCC) Acute blood loss anemia PROTHROMBIN TIME/INR Routine 02/03/2019 Fatty maru er 10:12 AM SENIOR CENTER DIRECTOR CBC W/PLT COUNT & AUTO Routine 02/03/2019 ESRD (e nd stage renal DIFFERENTIAL 10:12 AM SENIOR CENTER DIRECTOR disease) (HCC) Acute blood loss anemia US PELVIS WITH DOPPLER Routine 02/03/2019 ESRD (e nd stage renal 9:35 AM SENIOR CENTER DIRECTOR disease) (HCC) Pre-transplant evaluation for end stage renal disease RHYTHM STRIP - SCAN 01/21/2019 11:42 AM SENIOR CENTER DIRECTOR RHYTHM STRIP - SCAN 01/20/2019 4:02 PM SENIOR CENTER DIRECTOR RHYTHM STRIP - SCAN 01/20/2019 4:02 PM SENIOR CENTER DIRECTOR TRANSFUSION SERVICE 01/19/2019 REPORT - SCAN 6:00 PM SENIOR CENTER DIRECTOR PREPARE LEUKO-REDUCED RBC Routine 01/18/2019 11:55 PM SENIOR CENTER DIRECTOR TRANSFUSION SERVICE 01/18/2019 REPORT - SCAN 6:03 PM SENIOR CENTER DIRECTOR VITAMIN B12 AND FOLATE Routine 01/18/2019 5:47 PM SENIOR CENTER DIRECTOR HAPTOGLOBIN Routine 01/18/2019 5:47 PM SENIOR CENTER DIRECTOR LACTATE DEHYDROGENASE Routine 01/18/2019 (LDH) 5:47 PM SENIOR CENTER DIRECTOR IRON, TIBC, % SAT. Routine 01/18/2019 (WITHOUT FERRITIN) 5:47 PM SENIOR CENTER DIRECTOR FERRITIN Routine 01/18/2019 5:47 PM SENIOR CENTER DIRECTOR ULTRAFILTRATION HD CRRT Routine 01/18/2019 3:13 PM SENIOR CENTER DIRECTOR HEMOGLOBIN AND HEMATOCRIT STAT 01/18/2019 11:17 AM SENIOR CENTER DIRECTOR CBC (HEMOGRAM ONLY) Routine 01/18/2019 2:51 AM SENIOR CENTER DIRECTOR TRANSFUSE LEUKO-REDUCED Routine 01/17/2019 RED BLOOD CELLS 11:33 PM SENIOR CENTER DIRECTOR TRANSFUSE LEUKO-REDUCED Routine 01/17/2019 RED BLOOD CELLS 10:39 PM SENIOR CENTER DIRECTOR HEMODIALYSIS INPATIENT Routine 01/17/2019 9:29 PM SENIOR CENTER DIRECTOR TYPE AND SCREEN, Routine 01/17/2019 AUTOMATED 3:35 PM SENIOR CENTER DIRECTOR CBC W/PLT COUNT & AUTO Routine 01/16/2019 Alcohol ic cirrhosis of DIFFERENTIAL 3:56 PM SENIOR CENTER DIRECTOR liver without ascit es (HCC) AB SPECIFICITY CLASS I Routine 01/16/2019 ESRD (e nd stage renal 3:56 PM SENIOR CENTER DIRECTOR disease) (HCC) Pre-transplant evaluation for end stage renal disease ALPHA FETOPROTEIN (AFP), Routine 01/16/2019 Alcoh olic cirrhosis of TUMOR MARKER 3:56 PM SENIOR CENTER DIRECTOR liver without ascit es (HCC) PROTHROMBIN TIME/INR Routine 01/16/2019 Alcoholic cirrhosis of 3:56 PM SENIOR CENTER DIRECTOR liver without ascites (HCC) CBC W/PLT COUNT & AUTO Routine 01/16/2019 Alcohol ic cirrhosis of DIFFERENTIAL 3:56 PM SENIOR CENTER DIRECTOR liver without ascit es (HCC) HEPATIC FUNCTION PANEL Routine 01/16/2019 Alcohol ic cirrhosis of 3:56 PM SENIOR CENTER DIRECTOR liver without ascites (HCC) BASIC METABOLIC PANEL (7) Routine 01/16/2019 Alco h[place] cirrhosis of 3:56 PM SENIOR CENTER DIRECTOR liver without ascites (HCC) FLOW PRA CLASS II WITH Routine 01/16/2019 ESRD (e nd stage renal REFLEX TO ANTIBODY 3:56 PM SENIOR CENTER DIRECTOR disease) (HCC) SPECIFICITY Pre-transplant evaluation for end stage renal disease FLOW PRA CLASS I WITH Routine 01/16/2019 ESRD (en d stage renal REFLEX TO ANTIBODY 3:56 PM SENIOR CENTER DIRECTOR disease) (HCC) SPECIFICITY Pre-transplant evaluation for end stage renal disease HLA TYPING CII Routine 01/16/2019 ESRD (end stage renal 3:56 PM SENIOR CENTER DIRECTOR disease) (HCC) Pre-transplant evaluation for end stage renal disease HLA TYPING CI Routine 01/16/2019 ESRD (end stage renal 3:56 PM SENIOR CENTER DIRECTOR disease) (HCC) Pre-transplant evaluation for end stage renal disease RHYTHM STRIP - SCAN 01/08/2019 9:10 AM SENIOR CENTER DIRECTOR TRANSFUSION SERVICE 01/06/2019 REPORT - SCAN 5:50 PM SENIOR CENTER DIRECTOR HEPATIC FUNCTION PANEL Routine 01/06/2019 6:01 AM SENIOR CENTER DIRECTOR PROTHROMBIN TIME/INR Routine 01/06/2019 6:01 AM SENIOR CENTER DIRECTOR MAGNESIUM Routine 01/06/2019 6:01 AM SENIOR CENTER DIRECTOR BASIC METABOLIC PANEL (7) Routine 01/06/2019 6:01 AM SENIOR CENTER DIRECTOR CBC (HEMOGRAM ONLY) Routine 01/06/2019 6:01 AM SENIOR CENTER DIRECTOR MISCELLANEOUS LAB ORDER Routine 01/06/2019 6:01 AM SENIOR CENTER DIRECTOR PREPARE LEUKO-REDUCED RBC Routine 01/05/2019 11:54 PM SENIOR CENTER DIRECTOR TRANSFUSION SERVICE 01/05/2019 REPORT - SCAN 5:50 PM SENIOR CENTER DIRECTOR PROTHROMBIN TIME/INR Routine 01/05/2019 4:30 AM SENIOR CENTER DIRECTOR HEPATIC FUNCTION PANEL Routine 01/05/2019 4:30 AM SENIOR CENTER DIRECTOR MAGNESIUM Routine 01/05/2019 4:30 AM SENIOR CENTER DIRECTOR BASIC METABOLIC PANEL (7) Routine 01/05/2019 4:30 AM SENIOR CENTER DIRECTOR CBC (HEMOGRAM ONLY) Routine 01/05/2019 4:30 AM SENIOR CENTER DIRECTOR PREPARE LEUKO-REDUCED RBC STAT 01/04/2019 11:54 PM SENIOR CENTER DIRECTOR TRANSFUSION SERVICE 01/04/2019 REPORT - SCAN 5:53 PM SENIOR CENTER DIRECTOR DRUG SCREEN, URINE, Routine 01/04/2019 TRANSPLANT 5:39 PM SENIOR CENTER DIRECTOR DRUG SCREEN, URINE, Routine 01/04/2019 COMPREHENSIVE 5:39 PM SENIOR CENTER DIRECTOR TRANSFUSE LEUKO-REDUCED Routine 01/04/2019 RED BLOOD CELLS 2:09 PM SENIOR CENTER DIRECTOR ETHANOL Routine 01/04/2019 9:42 AM SENIOR CENTER DIRECTOR CBC W/PLT COUNT & AUTO Routine 01/04/2019 DIFFERENTIAL 4:07 AM SENIOR CENTER DIRECTOR CBC W/PLT COUNT & AUTO Routine 01/04/2019 DIFFERENTIAL 4:07 AM SENIOR CENTER DIRECTOR HEPATIC FUNCTION PANEL Routine 01/04/2019 4:07 AM SENIOR CENTER DIRECTOR BASIC METABOLIC PANEL (7) Routine 01/04/2019 4:07 AM SENIOR CENTER DIRECTOR TRANSFUSE LEUKO-REDUCED STAT 01/04/2019 RED BLOOD CELLS 1:55 AM SENIOR CENTER DIRECTOR TYPE AND SCREEN, STAT 01/03/2019 AUTOMATED 9:56 PM SENIOR CENTER DIRECTOR CBC W/PLT COUNT & AUTO STAT 01/03/2019 DIFFERENTIAL 9:54 PM SENIOR CENTER DIRECTOR PT/APTT STAT 01/03/2019 9:54 PM SENIOR CENTER DIRECTOR HEPATIC FUNCTION PANEL STAT 01/03/2019 9:54 PM SENIOR CENTER DIRECTOR BASIC METABOLIC PANEL (7) STAT 01/03/2019 9:54 PM SENIOR CENTER DIRECTOR CBC W/PLT COUNT & AUTO STAT 01/03/2019 DIFFERENTIAL 9:54 PM SENIOR CENTER DIRECTOR REPORT OF PROCEDURE - 12/31/2018 ENDOSCOPY SCAN 12:52 PM SENIOR CENTER DIRECTOR TRANSFUSION SERVICE 12/27/2018 REPORT - SCAN 6:02 PM CDT RHYTHM STRIP - SCAN 12/27/2018 4:04 PM CDT PREPARE LEUKO-REDUCED RBC STAT 12/26/2018 11:54 PM CDT TRANSFUSION SERVICE 12/26/2018 REPORT - SCAN 6:02 PM CDT CBC W/PLT COUNT & AUTO Routine 12/26/2018 DIFFERENTIAL 3:56 AM CDT HEPATIC FUNCTION PANEL Add-On 12/26/2018 3:56 AM CDT HAPTOGLOBIN Routine 12/26/2018 3:56 AM CDT PHOSPHORUS Routine 12/26/2018 3:56 AM CDT MAGNESIUM Routine 12/26/2018 3:56 AM CDT BASIC METABOLIC PANEL (7) TABATHA 12/26/2018 3:56 AM CDT CBC W/PLT COUNT & AUTO Routine 12/26/2018 DIFFERENTIAL 3:56 AM CDT VANCOMYCIN LEVEL, RANDOM Routine 12/26/2018 3:56 AM CDT PERIPHERAL VASCULAR 12/25/2018 REPORT - SCAN 9:23 PM CDT TRANSFUSE LEUKO-REDUCED STAT 12/25/2018 RED BLOOD CELLS 11:12 AM CDT TYPE AND SCREEN, STAT 12/25/2018 AUTOMATED 8:51 AM CDT BLOOD CULTURE TABATHA 12/25/2018 8:25 AM CDT CBC W/PLT COUNT & AUTO Routine 12/25/2018 DIFFERENTIAL 3:46 AM CDT LACTATE DEHYDROGENASE Add-On 12/25/2018 (LDH) 3:46 AM CDT PROTHROMBIN TIME/INR Routine 12/25/2018 3:46 AM CDT HEPATIC FUNCTION PANEL Routine 12/25/2018 3:46 AM CDT PHOSPHORUS Routine 12/25/2018 3:46 AM CDT MAGNESIUM Routine 12/25/2018 3:46 AM CDT BASIC METABOLIC PANEL (7) TABATHA 12/25/2018 3:46 AM CDT CBC W/PLT COUNT & AUTO Routine 12/25/2018 DIFFERENTIAL 3:46 AM CDT VENOUS DOPPLER LEGS Routine 12/24/2018 BILATERAL 6:55 PM CDT TRANSFUSION SERVICE 12/24/2018 REPORT - SCAN 6:02 PM CDT CBC W/PLT COUNT & AUTO Routine 12/24/2018 DIFFERENTIAL 3:18 AM CDT PHOSPHORUS Routine 12/24/2018 3:18 AM CDT MAGNESIUM Routine 12/24/2018 3:18 AM CDT BASIC METABOLIC PANEL (7) TABATHA 12/24/2018 3:18 AM CDT CBC W/PLT COUNT & AUTO Routine 12/24/2018 DIFFERENTIAL 3:18 AM CDT PREPARE LEUKO-REDUCED RBC STAT 12/23/2018 11:54 PM CDT HEMODIALYSIS INPATIENT Routine 12/23/2018 11:25 PM CDT CBC (HEMOGRAM ONLY) Routine 12/23/2018 8:04 PM CDT TRANSFUSION SERVICE 12/23/2018 REPORT - SCAN 6:01 PM CDT CBC W/PLT COUNT & AUTO Routine 12/23/2018 DIFFERENTIAL 4:01 AM CDT HEPATITIS B SURFACE Routine 12/23/2018 ANTIGEN 4:01 AM CDT VANCOMYCIN LEVEL, RANDOM Routine 12/23/2018 4:01 AM CDT PHOSPHORUS Routine 12/23/2018 4:01 AM CDT MAGNESIUM Routine 12/23/2018 4:01 AM CDT BASIC METABOLIC PANEL (7) TABATHA 12/23/2018 4:01 AM CDT CBC W/PLT COUNT & AUTO Routine 12/23/2018 DIFFERENTIAL 4:01 AM CDT PREPARE LEUKO-REDUCED RBC STAT 12/22/2018 11:[address] LOWER EXTREMITY Routine 12/22/2018 WITHOUT IV CONTRAST RIGHT 9:04 PM CDT TRANSFUSION SERVICE 12/22/2018 REPORT - SCAN 6:01 PM CDT CBC (HEMOGRAM ONLY) Routine 12/22/2018 4:26 PM CDT VANCOMYCIN LEVEL, TROUGH Timed 12/22/2018 4:26 PM CDT TRANSFUSE LEUKO-REDUCED Routine 12/22/2018 RED BLOOD CELLS 11:21 AM CDT XR CHEST 1 VIEW Routine 12/22/2018 PORTABLE/BEDSIDE 5:29 AM CDT CBC W/PLT COUNT & AUTO Routine 12/22/2018 DIFFERENTIAL 3:56 AM CDT LACTIC ACID, VENOUS Routine 12/22/2018 3:56 AM CDT PHOSPHORUS Routine 12/22/2018 3:56 AM CDT MAGNESIUM Routine 12/22/2018 3:56 AM CDT BASIC METABOLIC PANEL (7) TABATHA 12/22/2018 3:56 AM CDT CBC W/PLT COUNT & AUTO Routine 12/22/2018 DIFFERENTIAL 3:56 AM CDT FIBRINOGEN Routine 12/22/2018 3:55 AM CDT HEMOGLOBIN AND HEMATOCRIT TABATHA 12/21/2018 8:29 AM CDT TRANSFUSE LEUKO-REDUCED Routine 12/21/2018 RED BLOOD CELLS 7:30 AM CDT POCT-LACTIC ACID, VENOUS Routine 12/21/2018 4:01 AM CDT BLOOD CULTURE STAT 12/21/2018 3:04 AM CDT BLOOD CULTURE STAT 12/21/2018 3:04 AM CDT PROCALCITONIN STAT 12/21/2018 2:48 AM CDT AMMONIA STAT 12/21/2018 2:48 AM CDT POCT-LACTIC ACID, VENOUS Routine 12/21/2018 2:01 AM CDT BLOOD CULTURE STAT 12/21/2018 1:54 AM CDT CBC W/PLT COUNT & AUTO STAT 12/21/2018 DIFFERENTIAL 1:53 AM CDT TYPE AND SCREEN, STAT 12/21/2018 AUTOMATED 1:53 AM CDT MAGNESIUM STAT 12/21/2018 1:53 AM CDT PT/APTT STAT 12/21/2018 1:53 AM CDT TROPONIN I STAT 12/21/2018 1:53 AM CDT COMPREHENSIVE METABOLIC STAT 12/21/2018 PANEL 1:53 AM CDT CBC W/PLT COUNT & AUTO STAT 12/21/2018 DIFFERENTIAL 1:53 AM CDT XR KNEE RIGHT COMPLETE (4 STAT 12/21/2018 VIEWS) 1:39 AM CDT XR CHEST 1 VIEW STAT 12/21/2018 PORTABLE/BEDSIDE 1:39 AM CDT ECG 12-LEAD Routine 12/21/2018 1:18 AM CDT Procedure Note - Interface, External Ris In - 12/21/2018 2:43 PM CDT Ventricula r Rate 98 BPM Atrial Rate 98 BPM P-R Interval 148 ms QRS Duration 100 ms Q-T Interval 424 ms QTC Calculatio n(Bazett) 541 ms P [place] 40 degrees R [place] 30 degrees T [place] 14 degrees Normal sinus rhythm Prolonged QT Abnormal ECG When compared with ECG of 9 03:56, Nonspecifi c T wave abnormalit y no longer evident in Lateral leads ECG 12-LEAD STAT 12/21/2018 1:18 AM CDT CRITICAL CARE Routine 12/21/2018 1:10 AM CDT RHYTHM STRIP - SCAN 11/19/2018 9:00 AM CDT TRANSFUSION SERVICE 11/15/2018 REPORT - SCAN 5:52 PM CDT (MANUAL DIFFERENTIAL) Routine 11/15/2018 11:16 AM CDT CBC W/PLT COUNT & AUTO Routine 11/15/2018 DIFFERENTIAL 11:16 AM CDT CBC W/PLT COUNT & AUTO Routine 11/15/2018 DIFFERENTIAL 11:16 AM CDT CBC W/PLT COUNT & AUTO Routine 11/15/2018 DIFFERENTIAL 4:40 AM CDT PHOSPHORUS Add-On 11/15/2018 4:40 AM CDT BASIC METABOLIC PANEL (7) Routine 11/15/2018 4:40 AM CDT CBC W/PLT COUNT & AUTO Routine 11/15/2018 DIFFERENTIAL 4:40 AM CDT PROTHROMBIN TIME/INR Routine 11/15/2018 4:40 AM CDT HEPATIC FUNCTION PANEL Routine 11/15/2018 4:40 AM CDT PREPARE LEUKO-REDUCED RBC Routine 11/14/2018 11:54 PM CDT TRANSFUSION SERVICE 11/14/2018 REPORT - SCAN 6:03 PM CDT IR TUNNELED DIALYSIS Routine 11/14/2018 CATHETER 12:38 PM CDT CBC W/PLT COUNT & AUTO Routine 11/14/2018 DIFFERENTIAL 5:10 AM CDT BASIC METABOLIC PANEL (7) Routine 11/14/2018 5:10 AM CDT CBC W/PLT COUNT & AUTO Routine 11/14/2018 DIFFERENTIAL 5:10 AM CDT PROTHROMBIN TIME/INR Routine 11/14/2018 5:10 AM CDT HEPATIC FUNCTION PANEL Routine 11/14/2018 5:10 AM CDT TRANSFUSE LEUKO-REDUCED Routine 11/13/2018 RED BLOOD CELLS 12:08 PM CDT TYPE AND SCREEN, Routine 11/13/2018 AUTOMATED 8:34 AM CDT HEMOGLOBIN AND HEMATOCRIT STAT 11/13/2018 7:51 AM CDT CBC W/PLT COUNT & AUTO Routine 11/13/2018 DIFFERENTIAL 5:25 AM CDT PHOSPHORUS Add-On 11/13/2018 5:25 AM CDT BASIC METABOLIC PANEL (7) Routine 11/13/2018 5:25 AM CDT CBC W/PLT COUNT & AUTO Routine 11/13/2018 DIFFERENTIAL 5:25 AM CDT PROTHROMBIN TIME/INR Routine 11/13/2018 5:25 AM CDT HEPATIC FUNCTION PANEL Routine 11/13/2018 5:25 AM CDT XR CHEST 2 VIEWS Routine 11/12/2018 9:38 PM CDT CBC W/PLT COUNT & AUTO Routine 11/12/2018 DIFFERENTIAL 3:36 AM CDT BASIC METABOLIC PANEL (7) Routine 11/12/2018 3:36 AM CDT CBC W/PLT COUNT & AUTO Routine 11/12/2018 DIFFERENTIAL 3:36 AM CDT PROTHROMBIN TIME/INR Routine 11/12/2018 3:36 AM CDT HEPATIC FUNCTION PANEL Routine 11/12/2018 3:36 AM CDT CREATININE, RANDOM URINE Routine 11/12/2018 1:55 AM CDT PROTEIN, RANDOM URINE Routine 11/12/2018 1:55 AM CDT (CELLAVISION MANUAL DIFF) Routine 11/11/2018 3:46 AM CDT CBC W/PLT COUNT & AUTO Routine 11/11/2018 DIFFERENTIAL 3:46 AM CDT BASIC METABOLIC PANEL (7) Routine 11/11/2018 3:46 AM CDT CBC W/PLT COUNT & AUTO Routine 11/11/2018 DIFFERENTIAL 3:46 AM CDT PROTHROMBIN TIME/INR Routine 11/11/2018 3:46 AM CDT HEPATIC FUNCTION PANEL Routine 11/11/2018 3:46 AM CDT TRANSFUSION SERVICE 11/10/2018 REPORT - SCAN 6:01 PM CDT REPORT OF PROCEDURE - 11/10/2018 ENDOSCOPY URL 2:04 PM CDT TISSUE EXAM AP Routine 11/10/2018 1:25 PM CDT COLONOSCOPY,BIOPSY 11/10/2018 History of colon p olyps 1:00 PM CDT CBC W/PLT COUNT & AUTO Routine 11/10/2018 DIFFERENTIAL 4:30 AM CDT BASIC METABOLIC PANEL (7) Routine 11/10/2018 4:30 AM CDT CBC W/PLT COUNT & AUTO Routine 11/10/2018 DIFFERENTIAL 4:30 AM CDT PROTHROMBIN TIME/INR Routine 11/10/2018 4:30 AM CDT HEPATIC FUNCTION PANEL Routine 11/10/2018 4:30 AM CDT PREPARE LEUKO-REDUCED RBC Routine 11/09/2018 11:54 PM CDT URINALYSIS W/ REFLEX Routine 11/09/2018 URINE CULTURE 11:07 PM CDT BLOOD CULTURE Routine 11/09/2018 6:26 PM CDT BLOOD CULTURE Routine 11/09/2018 6:26 PM CDT TRANSFUSION SERVICE 11/09/2018 REPORT - SCAN 6:02 PM CDT HEMODIALYSIS INPATIENT Routine 11/09/2018 4:56 PM CDT HEMODIALYSIS INPATIENT Routine 11/09/2018 3:25 PM CDT CBC W/PLT COUNT & AUTO Routine 11/09/2018 DIFFERENTIAL 3:43 AM CDT PHOSPHORUS Add-On 11/09/2018 3:43 AM CDT BASIC METABOLIC PANEL (7) Routine 11/09/2018 3:43 AM CDT CBC W/PLT COUNT & AUTO Routine 11/09/2018 DIFFERENTIAL 3:43 AM CDT PROTHROMBIN TIME/INR Routine 11/09/2018 3:43 AM CDT HEPATIC FUNCTION PANEL Routine 11/09/2018 3:43 AM CDT TRANSFUSE LEUKO-REDUCED Routine 11/08/2018 RED BLOOD CELLS 6:16 PM CDT TRANSFUSE LEUKO-REDUCED Routine 11/08/2018 RED BLOOD CELLS 3:03 PM CDT MISCELLANEOUS LAB ORDER Routine 11/08/2018 2:39 PM CDT TYPE AND SCREEN, Routine 11/08/2018 AUTOMATED 9:26 AM CDT PHOSPHORUS Routine 11/08/2018 4:21 AM CDT MAGNESIUM Routine 11/08/2018 4:21 AM CDT BASIC METABOLIC PANEL (7) Routine 11/08/2018 4:21 AM CDT HEPATIC FUNCTION PANEL Routine 11/08/2018 4:21 AM CDT CBC W/PLT COUNT & AUTO Routine 11/08/2018 DIFFERENTIAL 4:20 AM CDT YARI ANTIGEN TITER Routine 11/08/2018 4:20 AM CDT CBC W/PLT COUNT & AUTO Routine 11/08/2018 DIFFERENTIAL 4:20 AM CDT PROTHROMBIN TIME/INR Routine 11/08/2018 4:20 AM CDT YARI ANTIGEN WITH Routine 11/08/2018 REFLEX TO TITER 4:[address] CHEST WITH HIGH STAT 11/08/2018 RESOLUTION/ILD 12:16 AM CDT MR ABDOMEN WITH & WITHOUT TABATHA 11/07/2018 IV CONTRAST 6:45 PM CDT (CELLAVISION MANUAL DIFF) Routine 11/07/2018 5:24 AM CDT CBC W/PLT COUNT & AUTO Routine 11/07/2018 DIFFERENTIAL 5:24 AM CDT BASIC METABOLIC PANEL (7) Routine 11/07/2018 5:24 AM CDT CBC W/PLT COUNT & AUTO Routine 11/07/2018 DIFFERENTIAL 5:24 AM CDT PROTHROMBIN TIME/INR Routine 11/07/2018 5:24 AM CDT HEPATIC FUNCTION PANEL Routine 11/07/2018 5:24 AM CDT (CELLAVISION MANUAL DIFF) Routine 11/06/2018 3:32 AM CDT CBC W/PLT COUNT & AUTO Routine 11/06/2018 DIFFERENTIAL 3:32 AM CDT BASIC METABOLIC PANEL (7) Routine 11/06/2018 3:32 AM CDT CBC W/PLT COUNT & AUTO Routine 11/06/2018 DIFFERENTIAL 3:32 AM CDT PROTHROMBIN TIME/INR Routine 11/06/2018 3:32 AM CDT HEPATIC FUNCTION PANEL Routine 11/06/2018 3:32 AM CDT URINALYSIS W/ MICROSCOPIC Routine 11/05/2018 8:47 PM CDT URINE CULTURE Routine 11/05/2018 8:47 PM CDT XR CHEST 1 VIEW STAT 11/05/2018 PORTABLE/BEDSIDE 8:02 PM CDT HEPATITIS B CORE Routine 11/05/2018 ANTIBODY, TOTAL 3:32 PM CDT HEPATITIS B SURFACE Routine 11/05/2018 ANTIBODY 3:32 PM CDT HEPATITIS B SURFACE Routine 11/05/2018 ANTIGEN 3:32 PM CDT IR NON-TUNNELED DIALYSIS TABATHA 11/05/2018 CATHETER INSERTION 12:10 PM CDT (CELLAVISION MANUAL DIFF) Routine 11/05/2018 5:07 AM CDT CBC W/PLT COUNT & AUTO Routine 11/05/2018 DIFFERENTIAL 5:07 AM CDT PHOSPHORUS Routine 11/05/2018 5:07 AM CDT MAGNESIUM Routine 11/05/2018 5:07 AM CDT BASIC METABOLIC PANEL (7) Routine 11/05/2018 5:07 AM CDT CBC W/PLT COUNT & AUTO Routine 11/05/2018 DIFFERENTIAL 5:07 AM CDT PROTHROMBIN TIME/INR Routine 11/05/2018 5:07 AM CDT HEPATIC FUNCTION PANEL Routine 11/05/2018 5:07 AM CDT PT/APTT Routine 11/05/2018 5:07 AM CDT BLOOD CULTURE Routine 11/04/2018 7:53 PM CDT BLOOD CULTURE Routine 11/04/2018 7:53 PM CDT URINALYSIS W/ REFLEX Routine 11/04/2018 URINE CULTURE 7:52 PM CDT AMMONIA Routine 11/04/2018 12:42 PM CDT MAGNESIUM Add-On 11/04/2018 3:47 AM CDT BASIC METABOLIC PANEL (7) Routine 11/04/2018 3:47 AM CDT PROTHROMBIN TIME/INR Routine 11/04/2018 3:47 AM CDT HEPATIC FUNCTION PANEL Routine 11/04/2018 3:47 AM CDT (CELLAVISION MANUAL DIFF) Routine 11/04/2018 3:46 AM CDT CBC W/PLT COUNT & AUTO Routine 11/04/2018 DIFFERENTIAL 3:46 AM CDT CBC W/PLT COUNT & AUTO Routine 11/04/2018 DIFFERENTIAL 3:46 AM CDT CBC W/PLT COUNT & AUTO Routine 11/03/2018 DIFFERENTIAL 4:00 AM CDT BASIC METABOLIC PANEL (7) Routine 11/03/2018 4:00 AM CDT CBC W/PLT COUNT & AUTO Routine 11/03/2018 DIFFERENTIAL 4:00 AM CDT PROTHROMBIN TIME/INR Routine 11/03/2018 4:00 AM CDT HEPATIC FUNCTION PANEL Routine 11/03/2018 4:00 AM CDT CBC W/PLT COUNT & AUTO Routine 11/02/2018 DIFFERENTIAL 5:22 AM CDT BASIC METABOLIC PANEL (7) Routine 11/02/2018 5:22 AM CDT CBC W/PLT COUNT & AUTO Routine 11/02/2018 DIFFERENTIAL 5:22 AM CDT PROTHROMBIN TIME/INR Routine 11/02/2018 5:22 AM CDT HEPATIC FUNCTION PANEL Routine 11/02/2018 5:22 AM CDT CBC W/PLT COUNT & AUTO Routine 11/01/2018 DIFFERENTIAL 5:24 AM CDT BASIC METABOLIC PANEL (7) Routine 11/01/2018 5:24 AM CDT CBC W/PLT COUNT & AUTO Routine 11/01/2018 DIFFERENTIAL 5:24 AM CDT PROTHROMBIN TIME/INR Routine 11/01/2018 5:24 AM CDT HEPATIC FUNCTION PANEL Routine 11/01/2018 5:24 AM CDT CBC W/PLT COUNT & AUTO Routine 10/31/2018 DIFFERENTIAL 4:19 AM CDT BASIC METABOLIC PANEL (7) Routine 10/31/2018 4:19 AM CDT CBC W/PLT COUNT & AUTO Routine 10/31/2018 DIFFERENTIAL 4:19 AM CDT PROTHROMBIN TIME/INR Routine 10/31/2018 4:19 AM CDT HEPATIC FUNCTION PANEL Routine 10/31/2018 4:19 AM CDT SODIUM, RANDOM URINE Routine 10/30/2018 8:42 PM CDT CBC W/PLT COUNT & AUTO Routine 10/30/2018 DIFFERENTIAL 3:27 AM CDT BASIC METABOLIC PANEL (7) Routine 10/30/2018 3:27 AM CDT CBC W/PLT COUNT & AUTO Routine 10/30/2018 DIFFERENTIAL 3:27 AM CDT PROTHROMBIN TIME/INR Routine 10/30/2018 3:27 AM CDT HEPATIC FUNCTION PANEL Routine 10/30/2018 3:27 AM CDT (CELLAVISION MANUAL DIFF) Routine 10/29/2018 4:12 AM CDT CBC W/PLT COUNT & AUTO Routine 10/29/2018 DIFFERENTIAL 4:12 AM CDT BASIC METABOLIC PANEL (7) Routine 10/29/2018 4:12 AM CDT CBC W/PLT COUNT & AUTO Routine 10/29/2018 DIFFERENTIAL 4:12 AM CDT PROTHROMBIN TIME/INR Routine 10/29/2018 4:12 AM CDT HEPATIC FUNCTION PANEL Routine 10/29/2018 4:12 AM CDT CBC W/PLT COUNT & AUTO Routine 10/28/2018 DIFFERENTIAL 3:26 AM CDT BASIC METABOLIC PANEL (7) Routine 10/28/2018 3:26 AM CDT CBC W/PLT COUNT & AUTO Routine 10/28/2018 DIFFERENTIAL 3:26 AM CDT PROTHROMBIN TIME/INR Routine 10/28/2018 3:26 AM CDT HEPATIC FUNCTION PANEL Routine 10/28/2018 3:26 AM CDT US PARACENTESIS Routine 10/27/2018 3:07 PM CDT BODY FLUID CULTURE + GRAM Routine 10/27/2018 STAIN 3:00 PM CDT BODY FLUID CELL COUNT Routine 10/27/2018 WITH DIFFERENTIAL 3:00 PM CDT BLOOD CULTURE Routine 10/27/2018 1:19 PM CDT LACTIC ACID, VENOUS STAT 10/27/2018 1:13 PM CDT BLOOD CULTURE Routine 10/27/2018 1:12 PM CDT CBC W/PLT COUNT & AUTO Routine 10/27/2018 DIFFERENTIAL 3:57 AM CDT BASIC METABOLIC PANEL (7) Routine 10/27/2018 3:57 AM CDT CBC W/PLT COUNT & AUTO Routine 10/27/2018 DIFFERENTIAL 3:57 AM CDT PROTHROMBIN TIME/INR Routine 10/27/2018 3:57 AM CDT HEPATIC FUNCTION PANEL Routine 10/27/2018 3:57 AM CDT US ABDOMEN LIMITED Routine 10/26/2018 4:21 AM CDT CBC W/PLT COUNT & AUTO Routine 10/26/2018 DIFFERENTIAL 3:50 AM CDT BASIC METABOLIC PANEL (7) Routine 10/26/2018 3:50 AM CDT CBC W/PLT COUNT & AUTO Routine 10/26/2018 DIFFERENTIAL 3:50 AM CDT PROTHROMBIN TIME/INR Routine 10/26/2018 3:50 AM CDT HEPATIC FUNCTION PANEL Routine 10/26/2018 3:50 AM CDT CBC W/PLT COUNT & AUTO Routine 10/25/2018 DIFFERENTIAL 4:01 AM CDT BASIC METABOLIC PANEL (7) Routine 10/25/2018 4:01 AM CDT CBC W/PLT COUNT & AUTO Routine 10/25/2018 DIFFERENTIAL 4:01 AM CDT PROTHROMBIN TIME/INR Routine 10/25/2018 4:01 AM CDT HEPATIC FUNCTION PANEL Routine 10/25/2018 4:01 AM CDT CBC W/PLT COUNT & AUTO Routine 10/24/2018 DIFFERENTIAL 4:36 AM CDT PHOSPHORUS Routine 10/24/2018 4:36 AM CDT MAGNESIUM Routine 10/24/2018 4:36 AM CDT CBC W/PLT COUNT & AUTO Routine 10/24/2018 DIFFERENTIAL 4:36 AM CDT PROTHROMBIN TIME/INR Routine 10/24/2018 4:36 AM CDT HEPATIC FUNCTION PANEL STAT 10/24/2018 4:36 AM CDT BASIC METABOLIC PANEL (7) STAT 10/24/2018 4:36 AM CDT MISCELLANEOUS LAB ORDER Routine 10/23/2018 6:25 PM CDT CBC W/PLT COUNT & AUTO Routine 10/23/2018 DIFFERENTIAL 3:54 AM CDT BASIC METABOLIC PANEL (7) STAT 10/23/2018 3:54 AM CDT PHOSPHORUS Routine 10/23/2018 3:54 AM CDT MAGNESIUM Routine 10/23/2018 3:54 AM CDT CBC W/PLT COUNT & AUTO Routine 10/23/2018 DIFFERENTIAL 3:54 AM CDT PROTHROMBIN TIME/INR Routine 10/23/2018 3:54 AM CDT HEPATIC FUNCTION PANEL Routine 10/23/2018 3:54 AM CDT URINALYSIS W/ REFLEX Routine 10/22/2018 URINE CULTURE 4:48 PM CDT BLOOD CULTURE Routine 10/22/2018 3:01 PM CDT BLOOD CULTURE Routine 10/22/2018 3:01 PM CDT (CELLAVISION MANUAL DIFF) Routine 10/22/2018 4:20 AM CDT CBC W/PLT COUNT & AUTO Routine 10/22/2018 DIFFERENTIAL 4:20 AM CDT BASIC METABOLIC PANEL (7) STAT 10/22/2018 4:20 AM CDT CBC W/PLT COUNT & AUTO Routine 10/22/2018 DIFFERENTIAL 4:20 AM CDT PROTHROMBIN TIME/INR Routine 10/22/2018 4:20 AM CDT HEPATIC FUNCTION PANEL Routine 10/22/2018 4:20 AM CDT (CELLAVISION MANUAL DIFF) Routine 10/21/2018 5:01 AM CDT CBC W/PLT COUNT & AUTO Routine 10/21/2018 DIFFERENTIAL 5:01 AM CDT BASIC METABOLIC PANEL (7) STAT 10/21/2018 5:01 AM CDT CBC W/PLT COUNT & AUTO Routine 10/21/2018 DIFFERENTIAL 5:01 AM CDT VITAMIN B12 AND FOLATE Routine 10/21/2018 5:01 AM CDT PERIPHERAL BLOOD SMEAR - Routine 10/21/2018 PATHOLOGIST REVIEW 5:01 AM CDT HAPTOGLOBIN Routine 10/21/2018 5:01 AM CDT RETICULOCYTE COUNT Routine 10/21/2018 5:01 AM CDT PROTHROMBIN TIME/INR Routine 10/21/2018 5:01 AM CDT HEPATIC FUNCTION PANEL Routine 10/21/2018 5:01 AM CDT 2D ECHO W/ DOPPLER Routine 10/20/2018 (CW/PW/COLOR) 1:30 PM CDT CBC W/PLT COUNT & AUTO Routine 10/20/2018 DIFFERENTIAL 6:22 AM CDT LACTATE DEHYDROGENASE Add-On 10/20/2018 (LDH) 6:22 AM CDT BASIC METABOLIC PANEL (7) Add-On 10/20/2018 6:22 AM CDT PHOSPHORUS Routine 10/20/2018 6:22 AM CDT MAGNESIUM Routine 10/20/2018 6:22 AM CDT PROTHROMBIN TIME/INR Routine 10/20/2018 6:22 AM CDT HEPATIC FUNCTION PANEL Routine 10/20/2018 6:22 AM CDT CBC W/PLT COUNT & AUTO Routine 10/20/2018 DIFFERENTIAL 6:22 AM CDT CBC W/PLT COUNT & AUTO Routine 10/19/2018 DIFFERENTIAL 9:55 PM CDT CBC W/PLT COUNT & AUTO Routine 10/19/2018 DIFFERENTIAL 9:55 PM CDT TRANSFUSION SERVICE 10/19/2018 REPORT - SCAN 5:52 PM CDT CBC W/PLT COUNT & AUTO Routine 10/19/2018 DIFFERENTIAL 3:48 PM CDT CBC W/PLT COUNT & AUTO Routine 10/19/2018 DIFFERENTIAL 3:48 PM CDT REPORT OF PROCEDURE - 10/19/2018 ENDOSCOPY URL 11:05 AM CDT REPORT OF PROCEDURE - 10/19/2018 ENDOSCOPY URL 9:17 AM CDT TISSUE EXAM AP Routine 10/19/2018 8:56 AM CDT COLONOSCOPY,POLYPECTOMY 10/19/2018 Gastrointesti nal 8:00 AM CDT hemorrhage, unspecified gastrointestinal hemorrhage type Special Needs REQ:TF UPPER ENDOSCOPY 10/19/2018 Gastrointestinal 8:00 AM CDT hemorrhage, unspecified gastrointestinal hemorrhage type Special Needs REQ:TF COLONOSCOPY,BIOPSY 10/19/2018 Gastrointestinal 8:00 AM CDT hemorrhage, unspecified gastrointestinal hemorrhage type Special Needs REQ:TF PROTHROMBIN TIME/INR Routine 10/19/2018 3:52 AM CDT (CELLAVISION MANUAL DIFF) Routine 10/19/2018 3:50 AM CDT CBC W/PLT COUNT & AUTO Routine 10/19/2018 DIFFERENTIAL 3:50 AM CDT PHOSPHORUS Routine 10/19/2018 3:50 AM CDT MAGNESIUM Routine 10/19/2018 3:50 AM CDT HEPATIC FUNCTION PANEL Routine 10/19/2018 3:50 AM CDT BASIC METABOLIC PANEL (7) Routine 10/19/2018 3:50 AM CDT CBC W/PLT COUNT & AUTO Routine 10/19/2018 DIFFERENTIAL 3:50 AM CDT PREPARE LEUKO-REDUCED RBC Routine 10/18/2018 11:54 PM CDT PREPARE LEUKO-REDUCED RBC Routine 10/18/2018 11:54 PM CDT (CELLAVISION MANUAL DIFF) Routine 10/18/2018 7:17 PM CDT CBC W/PLT COUNT & AUTO Routine 10/18/2018 DIFFERENTIAL 7:17 PM CDT CBC W/PLT COUNT & AUTO Routine 10/18/2018 DIFFERENTIAL 7:17 PM CDT UREA NITROGEN, RANDOM Routine 10/18/2018 URINE 6:43 PM CDT CREATININE, RANDOM URINE Routine 10/18/2018 6:43 PM CDT SODIUM, RANDOM URINE Routine 10/18/2018 6:43 PM CDT TRANSFUSION SERVICE 10/18/2018 REPORT - SCAN 5:52 PM CDT (CELLAVISION MANUAL DIFF) Routine 10/18/2018 12:33 PM CDT CBC W/PLT COUNT & AUTO Routine 10/18/2018 DIFFERENTIAL 12:33 PM CDT CBC W/PLT COUNT & AUTO Routine 10/18/2018 DIFFERENTIAL 12:33 PM CDT LACTIC ACID, VENOUS Routine 10/18/2018 6:49 AM CDT (CELLAVISION MANUAL DIFF) Routine 10/18/2018 4:55 AM CDT CBC W/PLT COUNT & AUTO Routine 10/18/2018 DIFFERENTIAL 4:55 AM CDT PROTHROMBIN TIME/INR Routine 10/18/2018 4:55 AM CDT HEPATIC FUNCTION PANEL Routine 10/18/2018 4:55 AM CDT BASIC METABOLIC PANEL (7) Routine 10/18/2018 4:55 AM CDT CBC W/PLT COUNT & AUTO Routine 10/18/2018 DIFFERENTIAL 4:55 AM CDT (CELLAVISION MANUAL DIFF) Routine 10/17/2018 8:59 PM CDT CBC W/PLT COUNT & AUTO Routine 10/17/2018 DIFFERENTIAL 8:59 PM CDT CBC W/PLT COUNT & AUTO Routine 10/17/2018 DIFFERENTIAL 8:59 PM CDT BASIC METABOLIC PANEL (7) Routine 10/17/2018 5:55 PM CDT URINALYSIS W/ REFLEX Routine 10/17/2018 URINE CULTURE 5:55 PM CDT US DOPPLER STAT 10/17/2018 5:12 PM CDT US ABDOMEN COMPLETE STAT 10/17/2018 5:12 PM CDT DRUG SCREEN, URINE, Routine 10/17/2018 COMPREHENSIVE 3:48 PM CDT BLOOD CULTURE Routine 10/17/2018 3:39 PM CDT CBC W/PLT COUNT & AUTO Routine 10/17/2018 DIFFERENTIAL 3:01 PM CDT ETHANOL Routine 10/17/2018 3:01 PM CDT PROCALCITONIN Routine 10/17/2018 3:01 PM CDT LACTIC ACID, VENOUS Routine 10/17/2018 3:01 PM CDT CBC W/PLT COUNT & AUTO Routine 10/17/2018 DIFFERENTIAL 3:01 PM CDT MISCELLANEOUS LAB ORDER Routine 10/17/2018 3:01 PM CDT BLOOD CULTURE Routine 10/17/2018 3:00 PM CDT TRANSFUSE LEUKO-REDUCED Routine 10/17/2018 RED BLOOD CELLS 1:42 PM CDT (CELLAVISION MANUAL DIFF) Routine 10/17/2018 6:25 AM CDT CBC W/PLT COUNT & AUTO Routine 10/17/2018 DIFFERENTIAL 6:25 AM CDT MAGNESIUM Add-On 10/17/2018 6:25 AM CDT HEPATIC FUNCTION PANEL Add-On 10/17/2018 6:25 AM CDT CBC W/PLT COUNT & AUTO Routine 10/17/2018 DIFFERENTIAL 6:25 AM CDT BASIC METABOLIC PANEL (7) Routine 10/17/2018 6:25 AM CDT TRANSFUSE LEUKO-REDUCED Routine 10/17/2018 RED BLOOD CELLS 5:27 AM CDT ECG 12-LEAD Routine 10/17/2018 3:56 AM CDT TYPE AND SCREEN, Routine 10/17/2018 AUTOMATED 12:38 AM CDT URINALYSIS W/ REFLEX Routine 10/17/2018 URINE CULTURE 12:37 AM CDT CBC W/PLT COUNT & AUTO Routine 10/16/2018 DIFFERENTIAL 11:29 PM CDT CREATINE KINASE (CK) Add-On 10/16/2018 11:29 PM CDT MAGNESIUM Routine 10/16/2018 11:29 PM CDT PROTHROMBIN TIME/INR Routine 10/16/2018 11:29 PM CDT CBC W/PLT COUNT & AUTO Routine 10/16/2018 DIFFERENTIAL 11:29 PM CDT BILIRUBIN, DIRECT Routine 10/16/2018 11:29 PM CDT COMPREHENSIVE METABOLIC Routine 10/16/2018 PANEL 11:29 PM CDT XR CHEST 1 VIEW STAT 10/16/2018 PORTABLE/BEDSIDE 10:10 PM CDT after 09/25/2018 Results * MR abdomen with/without IV contrast (05/23/2019 12:08 PM CDT) Only the most recent of 2 results within the time period is included. Specimen Narrative Performed At FINAL REPORT [facility] MRI of the abdomen with and without con trast Clinical History: cirrhosis screen for HCC Technique: Multiplanar and multisequenc e MR images of the abdomen are obtained before and after intravenous c ontrast administration. Contrast is administered to evaluate ne oplasm and vasculature. Comparison: November 07, 2018 Discussion: There are trace bilateral pleural effus ions. Liver has a mildly nodular contour. No mass lesion is identified. No biliary ductal dilatation. Hepatic vasc ulature is patent. There is sludge within the gallbladder. Spleen is enlarged and measures 14.7 cm sagittally. Pancreas, adrenal glands are unremarkable. Kidneys demonstrate no mass, hydronephr osis, or radiopaque stone. There is a moderate to large amount of ascites, increased since the previous exam. Mildly prominent upper a bdomen lymph nodes are unchanged, likely reactive. Visualized bowel is unremarkable. There is a new compression deformity of T10 v ertebral body, probably related to insufficiency fracture. Impression: No suspicious liver mass is identified. Gallbladder sludge. Moderate to large amount of ascites. Sp lenomegaly. New compression fracture of T10 vertebr al body. Signed: Alan Rodriguez MD Report Verified Date/Time: 0 12:54:18 Reading Location: [address] Reading Room Procedure Note Interface, External Ris In - 05/23/2019 12:56 PM CDT FINAL REPORT MRI of the abdomen with and without contrast Clinical History: cirrhosis screen for HCC Technique: Multiplanar and multisequence MR images of the abdomen are obtained before and after intravenous contrast administration. Contrast is administered to evaluate neoplasm and vasculature. Comparison: November 07, 2018 Discussion: There are trace bilateral pleural effusions. Liver has a mildly nodular contour. No mass lesion is identified. No biliary ductal dilatation. Hepatic vasculature is patent. There is sludge within the gallbladder. Spleen is enlarged and measures 14.7 cm sagittally. Pancreas, adrenal glands are unremarkable. Kidneys demonstrate no mass, hydronephrosis, or radiopaque stone. There is a moderate to large amount of ascites, increased since the previous exam. Mildly prominent upper abdomen lymph nodes are unchanged, likely reactive. Visualized bowel is unremarkable. There is a new compression deformity of T10 vertebral body, probably related to insufficiency fracture. Impression: No suspicious liver mass is identified. Gallbladder sludge. Moderate to large amount of ascites. Splenomegaly. New compression fracture of T10 vertebral body. Signed: Alan Rodriguez MD Report Verified Date/Time: 05/23/2019 12:54:18 Reading Location: [address] Ortho Consult Reading Room Performing Organization Address City/State/Zipcode Ph one Number GE RIS * CBC with platelet count + automated diff (05/23/2019 9:03 AM CDT) Only the most recent of 60 results within the time period is included. WBC 7.3 3.5 - 10.5 K/L [facility] RBC 2.33 (L) 4.63 - 6.08 M/L [facility] Hemoglobin 7.3 (L) 13.7 - 17.5 GM/DL [facility] Hematocrit 22.0 (L) 40.1 - 51.0 % [facility] MCV 94.4 (H) 79.0 - 92.2 fL [facility] MCH 31.3 25.7 - 32.2 pg [facility] MCHC 33.2 32.3 - 36.5 GM/DL [facility] RDW 18.6 (H) 11.6 - 14.4 % [facility] Platelets 94 (L) 150 - 450 K/CU MM [facility] MPV 8.4 (L) 9.4 - 12.4 fL [facility] nRBC 0 0 - 0 /100 WBC [facility] % Neutros 69 % [facility] % Lymphs 18 % [facility] % Monos 9 % [facility] % Eos 3 % [facility] % Baso 1 % [facility] # Neutros 5.03 1.78 - 5.38 K/L [facility] # Lymphs 1.31 (L) 1.32 - 3.57 K/L [facility] # Monos 0.62 0.30 - 0.82 K/L [facility] # Eos 0.23 0.04 - 0.54 K/L [facility] # Baso 0.06 0.01 - 0.08 K/L [facility] Immature 0 0 - 1 % [facility] Granulocytes-Relative [facility] Specimen Blood Performing Organization Address City/State/Zipcode Ph one Number [facility] [address] [place], [place] [address] MEDICAL CENTER * Prothrombin time/INR (05/23/2019 9:03 AM CDT) Only the most recent of 40 results within the time period is included. Protime 16.6 (H) 11.9 - 14.2 seconds [facility] INR 1.4 <=5.9 [facility] Specimen Blood Narrative Performed At Effective 07/24/2018: PT Reference Range Change [facility] New: 11.9-14.2Previous: 11.7-14.7 [facility] MEDICAL CE NTER RECOMMENDED COUMADIN/WARFARIN INR THERA PY RANGES STANDARD DOSE: 2.0-3.0Includes: PRO PHYLAXIS for venous thrombosis, systemic embolization; TREATMENT for venous thro mbosis and/or pulmonary embolus. HIGH RISK: Target INR is 2.5-3.5 for pa tients wiht mechanical heart valves. Performing Organization Address [facility] [address] [facility] Ph one Number [place] [address] [facility] * Hepatic function panel (05/23/2019 9:03 AM CDT) Only the most recent of 41 results within the time period is included. Protein, Total 6.5 6.0 - 8.3 gm/dL [facility] Albumin 3.4 (L) 3.5 - 5.0 g/dL [facility] Total Bilirubin 5.4 (H) 0.2 - 1.2 mg/dL [facility] Bilirubin, Direct 2.6 (H) 0.1 - 0.5 mg/dL [facility] Alkaline Phosphatase 200 (H) 40 - 150 U/L [facility] AST 46 (H) 5 - 34 U/L [facility] ALT 12 6 - 55 U/L [facility] Specimen Blood Narrative Performed At Bag Maker ID - PORSHAASHLEYG [facility] Specimen [facility] Performing Organization Address [facility] [address] Ph one Number [place] [address] [facility] * Basic Metabolic Panel (05/23/2019 9:03 AM CDT) Only the most recent of 47 results within the time period is included. Sodium 139 136 - 145 meq/L [facility] Potassium 3.3 (L) 3.5 - 5.1 meq/L [facility] Chloride 100 98 - 107 meq/L [facility] CO2 30 (H) 22 - 29 meq/L [facility] BUN 25 (H) 7 - 21 mg/dL [facility] Creatinine 2.87 (H) 0.57 - 1.25 mg/dL [facility] Glucose 112 (H) 70 - 105 mg/dL [facility] Calcium 8.5 8.4 - 10.2 mg/dL [facility] EGFR 25Comment: ESTIMATED GFR IS mL/min/1.[address] [facility] NOT ACCURATE CREATININE [facility] CLEARANCE IN PREDICTING GLOMERULAR FILTRATION RATE. ESTIMATED GFR IS NOT APPLICABLE FOR DIALYSIS PATIENTS. Specimen Blood Narrative Performed At Bag Maker ID - KAVONG [facility] Specimen [facility] Performing Organization Address City/[facility] [address]/[facility] Ph one Number [phone] [place] [address] * RHYTHM STRIP - SCAN (05/15/2019 4:11 PM CDT) Only the most recent of 8 results within the time period is included. Narrative Performed At This result has an attachment that is n ot available. * Miscellaneous lab test (05/14/2019 9:30 AM CDT) Only the most recent of 5 results within the time period is included. Scan Result [facility] Specimen Blood Narrative Performed At This result has an attachment that is n ot available. Performing Organization Address City/[facility] [address]/[facility] Ph [facility] Number [facility] [address] [place] [address], [place] * Bilirubin, direct (05/14/2019 9:30 AM CDT) Only the most recent of 5 results within the time period is included. Bilirubin, Direct 2.0 (H) 0.1 - 0.5 mg/dL [facility] Specimen Blood Performing Organization Address [facility] [address]/[facility] Ph one Number [place] [phone] [address] [phone] [place] [address] * EKG-SCANNED (05/13/2019 11:03 AM CDT) Only the most recent of 3 results within the time period is included. Narrative Performed At This result has an attachment that is n ot available. * CARDIAC CATH REPORT - SCAN (05/12/2019 3:10 PM CDT) Narrative Performed At This result has an attachment that is n ot available. * Phosphorus (05/10/2019 5:22 AM CDT) Only the most recent of 18 results within the time period is included. Phosphorus 3.4 2.3 - 4.7 mg/dL [facility] Specimen Blood Narrative Performed At Bag Maker ID - ULYSSES Jang [facility] Performing Organization Address [facility] [address]/[facility] one [place] [address] [phone] * Magnesium (05/10/2019 5:22 AM CDT) Only the most recent of 23 results within the time period is included. Magnesium 1.9 1.6 - 2.6 mg/dL [facility] Specimen Blood Narrative Performed At Bag Maker ID - ULYSSES Jang [facility] Performing Organization Address [facility] [address]/[facility] one [place] [address] [facility] * NM Myocardial Perfusion Pet/CT (Rest & Stress) (05/09/2019 2:55 PM CDT) Specimen Narrative Performed At FINAL REPORT GE RIS PROCEDURE: MYOCARDIAL PERFUSION PET HEAVENLY GING (Rest/Stress) CPT CODE: [id number] INDICATION: Assess symptoms/risk factor s of possible CAD CARDIOVASCULAR PROFILE: CAD History: None Risk Factors: Hypertension, ESRD BMI: 26.5 STRESS PROTOCOL: Pharmacologic stress was achieved with a 10-second intravenous infusion of regadenoson 0.4 mg. The rad iopharmaceutical was administered 30 seconds after the start of the regadenoson infusion. IMAGING PROTOCOL: Limited low-dose CT imaging was perform ed for attenuation correction. 40.2 mCi of Rb-82 chloride was injected intravenously at rest, and gated PET images were obtained. Then, 4 0.1 mCi of Rb-82 chloride was injected intravenously at peak stress, and gated PET images were obtained. Image quality is good. REST FINDINGS: HR: 78/min BP: 91/44 mmHg Prelim. EKG: Normal sinus rhythm. Perfusion: Normal. Wall Motion: Normal (LVEF >70%). LV Volume: Normal. RV Volume: Normal. STRESS FINDINGS: HR: 89/min (49% of MPHR) BP: 86/39 mmHg Prelim. EKG: No ischemic changes. Symptoms: Shortness of breath (treatmen t not required). Perfusion: Normal. Wall Motion: Normal (LVEF >70%). LV Volume: Not significantly changed fr om rest. IMPRESSION: 1. Normal study. 2. Normal myocardial perfusion. 3. Normal resting LVEF, which does not deteriorate with pharmacologic stress. 4. Normal extracardiac tracer distribut ion. 5. There is no prior study for comparis on. Signed: Pedro Pablo Montero MD Report Verified Date/Time: 0 16:05:35 Reading Location: [address] Reading Room Procedure Note Interface, External Ris In - 05/09/2019 4:07 PM CDT FINAL REPORT PROCEDURE: MYOCARDIAL PERFUSION PET IMAGING (Rest/Stress) CPT CODE: [id number] INDICATION: Assess symptoms/risk factors of possible CAD CARDIOVASCULAR PROFILE: CAD History: None Risk Factors: Hypertension, ESRD BMI: 26.5 STRESS PROTOCOL: Pharmacologic stress was achieved with a 10-second intravenous infusion of regadenoson 0.4 mg. The radiopharmaceutical was administered 30 seconds after the start of the regadenoson infusion. IMAGING PROTOCOL: Limited low-dose CT imaging was performed for attenuation correction. 40.2 mCi of Rb-82 chloride was injected intravenously at rest, and gated PET images were obtained. Then, 40.1 mCi of Rb-82 chloride was injected intravenously at peak stress, and gated PET images were obtained. Image quality is good. REST FINDINGS: HR: 78/min BP: 91/44 mmHg Prelim. EKG: Normal sinus rhythm. Perfusion: Normal. Wall Motion: Normal (LVEF >70%). LV Volume: Normal. RV Volume: Normal. STRESS FINDINGS: HR: 89/min (49% of MPHR) BP: 86/39 mmHg Prelim. EKG: No ischemic changes. Symptoms: Shortness of breath (treatment not required). Perfusion: Normal. Wall Motion: Normal (LVEF >70%). LV Volume: Not significantly changed from rest. IMPRESSION: 1. Normal study. 2. Normal myocardial perfusion. 3. Normal resting LVEF, which does not d eteriorate with pharmacologic stress. 4. Normal extracardiac tracer distributi on. 5. There is no prior study for compariso n. Signed: Pedro Pablo Montero MD Report Verified Date/Time: 05/09/2019 16:05:35 Reading Location: [address] Nuc Med Reading Room Performing Organization Address City/State/Zipcode Ph one Number GE RIS * Treadmill tolerance(Non-Nuclear Treadmill) (05/09/2019 2:24 PM CDT) Specimen Narrative Performed At Protocol Name Regadenoson GE MUSE Time In Exercise Phase 00:01:00 Max. Systolic BP 86 mmHg Max Diastolic BP 39 mmHg Max Heart Rate 89 BPM Max Predicted Heart Rate 180 BPM Reason For Termination Predetermined en d point Reason for Test Cad Evaluation Target HR Formula (220 - Age)*100% Arrhythmias none Resting ECG Normal sinus rhythm ST Changes No Significant Changes Overall Impression Indeterminate due to pharmacological stress Chest Pain none HR Response To Exercise BP Response To Exercise No cardiac meds Confirmed by fellow Leeann Amador ([id number]) on 05/09/2019 3:07:42 PM Confirmed by MD Sera, Emiliano ([id number]) o n 05/15/2019 10:24:47 PM Procedure Note Interface, External Ris In - 05/15/2019 10:25 PM CDT Protocol Name Regadenoson Time In Exercise Phase 00:01:00 Max. Systolic BP 86 mmHg Max Diastolic BP 39 mmHg Max Heart Rate 89 BPM Max Predicted Heart Rate 180 BPM Reason For Termination Predetermined end point Reason for Test Cad Evaluation Target HR Formula (220 - Age)*100% Arrhythmias none Resting ECG Normal sinus rhythm ST Changes No Significant Changes Overall Impression Indeterminate due to pharmacological stress Chest Pain none HR Response To Exercise BP Response To Exercise No cardiac meds Confirmed by fellow Leeann Amador ([id number]) on 05/09/2019 3:07:42 PM Confirmed by MD Sera, Emiliano ([id number]) on 05/15/2019 10:24:47 PM Performing Organization Address City/State/Zipcode Ph one Number GE MUSE * Comprehensive metabolic panel (05/09/2019 5:35 AM CDT) Only the most recent of 9 results within the time period is included. Protein, Total 6.1Comment: Specimen slightly 6.0 - 8.3 gm/dL [facility] Albumin 2.9 (L)Comment: Specimen 3.5 - 5.0 g/dL [facility] Alkaline Phosphatase 116 40 - 150 U/L [facility] Total Bilirubin 4.1 (H)Comment: Specimen 0.2 - 1.2 mg/dL [facility]Jerold [facility] Sodium 131 (L) 136 - 145 meq/L [facility] Potassium 3.9Comment: Specimen slightly 3.5 - 5.1 meq/L [facility] Chloride 99 98 - 107 meq/L [facility] CO2 23 22 - 29 meq/L [facility] BUN 22 (H) 7 - 21 mg/dL [facility] Creatinine 4.22 (H)Comment: Specimen 0.57 - 1.25 mg/dL [facility] slightly hemolyzed [facility] Glucose 108 (H) 70 - 105 mg/dL [facility] Calcium 8.1 (L) 8.4 - 10.2 mg/dL [facility] AST 30Comment: Specimen slightly 5 - 34 U/L C [facility] hemolyzed [facility] ALT 8Comment: Specimen slightly 6 - 55 U/L CH I [facility] hemolyzed [facility] EGFR 16Comment: ESTIMATED GFR IS mL/min/1.[address] [facility] NOT ACCURATE CREATININE [facility] CLEARANCE IN PREDICTING GLOMERULAR FILTRATION RATE. ESTIMATED GFR IS NOT APPLICABLE FOR DIALYSIS PATIENTS. Specimen Blood Narrative Performed At Bag Maker ID - ULYSSES M [facility] Specimen slightly icteric [facility] Performing Organization Address City/State/Zipcode Ph one Number [place] [address] [facility] * TRANSFUSION SERVICE REPORT - SCAN (05/08/2019 5:52 PM CDT) Only the most recent of 20 results within the time period is included. Narrative Performed At This result has an attachment that is n ot available. * Limited 2D Echocardiogram (05/08/2019 11:40 AM CDT) Ejection Fraction [facility] ECHO HEARTLAB [facility] Specimen Narrative Performed At Transthoracic Echocardiography Report (TTE) [facility] ECH O HEARTLAB Demographics [facility] Patient Name INDRA GALVAN Date of Study 05/08/2019 YAN CORDERO [id number] Gender Male Visit Number [id number] Unknown [id number] Room Number 6213 Number Date of Birth1980 Referring Physician ROBBIE NEW Age38 year(s)Sonogrriki Lawson Marleni AnalystAlex Betty Ram MD Procedure Type of Study TTE procedure:LIMITED 2D ECHOCARDIOGRAM (STAT) Indications:Suspected Pericardial condi tions. Clinical History HGB 8.0 HCT 25.0 % ALCOHOL ABUSE ANEMIA HTN ESRD OBESITHY TRACHEOSTOMY 2018 Height: 71 inches Weight: 80.74 kg (178 lbs) BSA: 2.01 m^2 BMI: 24.83 kg/m^2 HR: 82 bpm BP: 95/61 mmHg Summary Limited study for a follow up pericardi ocentesis. Trivial to small residual pericardial e ffusion noted. Signature Findings Technical Quality: Technically adequate exam. Left Ventricle Normal l eft ventricular chamber size. Normal wall thickness. Normal overall left ventricular systolic function. No apparent segmental wall motion abnormalities. Estimated LVEF by qualitative assessment is normal (>60%) . Left AtriumLA s ize is dsse-um-rxitgmejft enlarged . Right VentricleNormal r ight ventricle structure and function. Right Atrium Right atrium dilated. Aortic Valve Normal AoV structure. Mitral Valve Normal MV structure. Tricuspid ValveA trace of tricuspid regurgitation. Pulmonic Valve PV is no t well visualized. Aorta Aortic root size (SInus of Valsalva diameter) is normal . PericardiumTriv ial to small residual pericardial effusion noted. IVC/SVC/PA/PV/PleuralThe estimated RA pressure by IVC dynamics 11-15mmHg . Chambers/Structures Left Atrium LA Dimension: 4.5 cm LA Area: 25.88 cm^2 LA Volume: 83.12 ml LA Vol. Index: 41 ml/m^2 Left Ventricle LVIDd: 5.18 cm LV Septum Diastolic: 1.08 cm LV PW Diastolic: 1.1 cm Right Atrium RA Area: 2 0.49 cm^2 Aorta Ao Root S of Yasmin.: 3.23 cm Procedure Note Interface, External Ris In - 05/08/2019 1:37 PM CDT Transthoracic Echocardiography Report (TTE) Demographics Patient Name INDRA GALVAN Date of Study 05/08/2019 YAN CORDERO Gender Male Visit Number [id number] Race Unknown Room Number 6213 Number Date of 1980 Referring Physician ROBBIE NEW Age 38 year(s) Perinatal Breastfeeding Assistant Renny Yepez [employer] Table Attendant Nick Navarro Interpreting Physician MELVA Jackson Procedure Type of Study TTE procedure:LIMITED 2D ECHOCARDIOGRAM (STAT) Indications:Suspected Pericardial conditions. Clinical History HGB 8.0 HCT 25.0 % ALCOHOL ABUSE ANEMIA HTN ESRD OBESITHY TRACHEOSTOMY 2018 Height: 71 inches Weight: 80.74 kg (178 lbs) BSA: 2.01 m^2 BMI: 24.83 kg/m^2 HR: 82 bpm BP: 95/61 mmHg Summary Limited study for a follow up pericardiocentesis. Trivial to small residual pericardial effusion noted. Signature Findings Technical Quality: Technically adequate exam. Left Ventricle Normal left ventricular chamber size. Normal wall thickness. Normal overall left ventricular systolic function. No apparent segmental wall motion abnormalities. Estimated LVEF by qualitative assessment is normal (>60%) . Left Atrium LA size is cxnc-mt-nplbelfnoc enlarged . Right Ventricle Normal right ventricle structure and function. Right Atrium Right atrium dilated. Aortic Valve Normal AoV structure. Mitral Valve Normal MV structure. Tricuspid Valve A trace of tricuspid regurgitation. Pulmonic Valve PV is not well visualized. Aorta Aortic root size (SInus of Valsalva diameter) is normal . Pericardium Trivial to small residual pericardial effusion noted. IVC/SVC/PA/PV/Pleural The estimated RA pressure by IVC dynamics 11-15mmHg . Chambers/Structures Left Atrium LA Dimension: 4.5 cm LA Area: 25.88 cm^2 LA Volume: 83.12 ml LA Vol. Index: 41 ml/m^2 Left Ventricle LVIDd: 5.18 cm LV Septum Diastolic: 1.08 cm LV PW Diastolic: 1.1 cm Right Atrium RA Area: 20.49 cm^2 Aorta Ao Root S of Yasmin.: 3.23 cm Performing Organization Address City/[facility] [address]/Zipcode Ph one Number [facility] MKCKESSON CPACS * Procalcitonin (05/08/2019 3:02 AM CDT) Only the most recent of 4 results within the time period is included. Procalcitonin 3.64 (H) <0.05 ng/mL [facility] Specimen Blood Narrative Performed At SEPSIS RISK (ng/mL) [facility] Low:0.05-0.50 [facility] Intermediate: 0.51-2.00 High: >=2.01 Performing Organization Address [facility] [address]/[facility] Ph one Number [place] [address] [facility] * Manual Differential (05/08/2019 3:02 AM CDT) Only the most recent of 17 results within the time period is included. % Neutros 74 % [facility] % Lymphs 12 % [facility] % Monos 9 % [facility] % Eos 2 % [facility] % Baso 3 % [facility] # Neutros 8.66 (H) 1.78 - 5.38 K/ul [facility] # Lymphs 1.40 1.32 - 3.57 K/ul [facility] # Monos 1.05 (H) 0.30 - 0.82 K/uL [facility] # Eos 0.23 0.04 - 0.54 K/uL [facility] # Baso 0.35 (H) 0.01 - 0.08 K/uL [facility] Total Counted 100 [facility] Platelet Morphology Normal [facility] Toxic Granulation Present [facility] Polychromasia 2+ moderate [facility] Hypochromia 1+ few [facility] Anisocytosis 1+ few [facility] Macrocytes 1+ few [facility] Poikilocytes 1+ few [facility] [place] Cells 1+ few [facility] Artifact Present [facility] Platelet Conc Adequate [facility] Specimen Blood Narrative Performed At Bag Maker ID - Ivonne Gray [facility] User comments: [facility] Slide comments: Performing Organization Address [facility] [address]/[facility] Ph one Number [address] [address] [facility] * Prepare Leuko-Red RBC (05/07/2019 11:54 PM CDT) Only the most recent of 12 results within the time period is included. CROSSMATCH COMPATIBLE SAFETRACE TX Unit ABO B Pos SAFETRACE TX UNIT NUMBER [id number] SAFETRACE TX Status TX_TIMEINCHART SAFETRACE TX Blood Bank Product RED BLOOD CELLS SAFETRACE TX PRODUCT CODE [id number] SAFETRACE TX Specimen Other Performing Organization Address [facility] [address]/[facility] one Number SAFETRACE TX * PERIPHERAL VASCULAR REPORT - SCAN (05/07/2019 9:12 PM CDT) Only the most recent of 2 results within the time period is included. Narrative Performed At This result has an attachment that is n ot available. * Body fluid culture + gram stain (05/07/2019 7:20 PM CDT) Only the most recent of 2 results within the time period is included. Result No growth [facility] Gram Stain Result 1+ White blood cells seen [facility] Gram Stain Result No organisms seen [facility] Specimen Body Fluid Performing Organization Address City/[facility] [address]/Zipcode Ph one Number [address] [facility] * Cytology (05/07/2019 7:20 PM CDT) Case Report Medical Cytology [facility] Report [facility] Case: [id number] Authorizing Provider:Robbie New MD Collected: 05/07/2019 1920 Ordering Location: [place] [address] CCUReceived: 05/08/19 1445 Pathologist: Josh Yang MD Specimen:Pericardial DIAGNOSIS PERICARDIAL FLUID (CYTOSPINS): [facility] - NEGATIVE FOR MALIGNANCY [facility] Signing Pathologist Direct Phone Line: [phone] CPT Code(s) 75589 [facility] CLINICAL DATA Pericardial effusion, [facility] cirrhosis [facility] SPECIMEN SOURCE PERICARDIAL FLUID [facility] GROSS DESCRIPTION 600 mls bloody fluid; [address] [facility] cytospins [facility] Collected: [id number] Received: [id number] STATEMENT OF ADEQUACY Satisfactory [facility] Gross assessment was [facility] performed at [place], Department of [facility] Pathology, [address] [place] [address], Technical component was [facility] performed at [place], Department of [facility] Pathology, [address] [place] [address], Professional component [facility] was performed at [place], Department of [facility] Pathology, [address] [place] [address], Specimen Body Fluid Narrative Performed At This result has an attachment that is n ot available. Performing Organization Address [facility] Centercode Ph one Number [address] 0 [phone] [place] [address] * 2D Echo W/Doppler(CW/PW/Color) (05/07/2019 6:32 PM CDT) Ejection Fraction [facility] ECHO HEARTLAB [facility] Specimen Narrative Performed At Transthoracic Echocardiography Report (TTE) [facility] ECH O HEARTLAB Demographics [facility] Patient Name INDRA GALVAN Date of Study05/07/2019 YAN CORDERO [id number] Gender Male Visit Number [id number] Unknown [id number] Room [id number] Number Date of Birth1980 Barron sanchez Age38 year(s)Sonograp Darlene Jerez Inte rpreting Betty Jackson Fellow Indra zamora MD Procedure Type of Study TTE procedure:2DECHO W DO PPLER(CW/PW/COLOR) (STAT) Indications:Pericardiocentesis. Clinical History HGB 7.4 HCT 23.3 % ETOH ABUSE, ALCOHOLIC HEPATITIS, ESRD, FATTY LIVER, HX OF HTN, OBESITY, SKIN RASH, HX OF RESPIRATORY FAILURE PERICARDIOCENTESIS 600 ml drained Height: 71 inches Weight: 83.01 kg (183 lbs) BSA: 2.03 m^2 BMI: 25.52 kg/m^2 HR: 84 bpm BP: 87/51 mmHg Summary Limited TTE for pericardiocentesis. Phy sicians aware of imaging. A known moderate-large circumferential pericardial effusion is present. noted intra pericardial bubbles injecti on during the procedure. Successful pericardiocentesis with small residual effusion. Signature Findings Left Ventricle All of the LV segments c ontract normally . Global LV systolic function normal . LVEF by New's method of disk assessment is normal (>60%) . Left AtriumLA size is moderatel y enlarged (42-48 ml/m2) . RightThe right vent ricular chamber size and systolic function Ventricleare within normal limits. Right Atrium RA cavity size is norm al . Aortic Valve Normal AoV structure. Mitral Valve Normal MV structure. TricuspidTV structure is no rmal. Valve Pulmonic Valve PericardiumA moderate-large cir cumferential pericardial effusion is present . Procedure Note Interface, External Ris In - 05/08/2019 9:48 AM CDT Transthoracic Echocardiography Report (TTE) Demographics Patient Name INDRA GALVAN Date of Study 05/07/2019 YAN CORDERO Gender Male Visit Number [id number] Race Unknown Room Number 6213 Number Date of 1980 Referring Robbie New MD Physician Age 38 year(s) Perinatal Breastfeeding Assistant Aneudy Jerez Interpreting Physician MELVA Jackson Fellow Indra Murry MD Procedure Type of Study TTE procedure:2DECHO W DOPPLER(CW/PW/COLOR) (STAT) Indications:Pericardiocentesis. Clinical History HGB 7.4 HCT 23.3 % ETOH ABUSE, ALCOHOLIC HEPATITIS, ESRD, FATTY LIVER, HX OF HTN, OBESITY, SKIN RASH, HX OF RESPIRATORY FAILURE PERICARDIOCENTESIS 600 ml drained Height: 71 inches Weight: 83.01 kg (183 lbs) BSA: 2.03 m^2 BMI: 25.52 kg/m^2 HR: 84 bpm BP: 87/51 mmHg Summary Limited TTE for pericardiocentesis. Physicians aware of imaging. A known moderate-large circumferential pericardial effusion is present. noted intra pericardial bubbles injection during the procedure. Successful pericardiocentesis with small residual effusion. Signature Findings Left Ventricle All of the LV segments contract normally . Global LV systolic function normal . LVEF by New's method of disk assessment is normal (>60%) . Left Atrium LA size is moderately enlarged (42-48 ml/m2) . Right The right ventricular chamber size and systolic function Ventricle are within normal limits. Right Atrium RA cavity size is normal . Aortic Valve Normal AoV structure. Mitral Valve Normal MV structure. Tricuspid TV structure is normal. Valve Pulmonic Valve Pericardium A moderate-large circumferential pericardial effusion is present. Performing Organization Address City/State/Zipcode Ph one Number [facility] * Carotid doppler bilateral (05/06/2019 4:05 PM CDT) Ejection Fraction [facility] Specimen Impressions Performed At Right Impression [facility] Tip or Skip [email or web address] 1. The internal carotid artery is within normal limit s. [facility] [facility] 2. The external carotid artery is withi n normal limits. 3. The common carotid artery is within normal limits. 4. The vertebral artery flow is antegra de and normal. 5. The subclavian artery is within norm al limits where visualized. Left Impression 1. The internal carotid artery is withi n normal limits. 2. The external carotid artery is withi n normal limits. 3. The common carotid artery is within normal limits. 4. The vertebral artery flow is antegra de and normal. 5. The subclavian artery is within norm al limits where visualized. Conclusions Summary Carotid duplex scanning and color flow imaging were performed bilaterally. The arteries were well visualized and n o areas of stenosis were found bilaterally. Doppler flow velocities we re within normal range bilaterally. The vertebral artery flow was antegrade and normal bilaterally. The subclavian arteries were patent with no rmal flow bilaterally where visualized. Signature Velocities are measured in cm/s ; Diame ters are measured in cm Carotid Right Measurements + +----+----+-----+------ ------+ + + !Location !PSV !EDV !Angle! %Stenosis 2D!%Stenosis Doppler!Tortuosity ! + +----+----+-----+------ ------+ + + !Prox CCA !110 !24!60 !! ! ! + +----+----+-----+------ ------+ + + !Dist CCA !112 !29.3!60 !! ! ! + +----+----+-----+------ ------+ + + !Prox ICA !115 !27.5!60 !!Normal ! ! + +----+----+-----+------ ------+ + + !Dist ICA !127 !37.3!60 !! ! ! + +----+----+-----+------ ------+ + + !Prox ECA !131 !23.6!60 !! ! ! + +----+----+-----+------ ------+ + + !Vertebral!68.6!21.7!60 !! ! ! + +----+----+-----+------ ------+ + + !Prox Subclavian!163 !!60 !! ! ! + +----+----+-----+------ ------+ + + - There is antegrade vertebral flow noted on the right side. - Additional Measurements:ICAPSV/CC APSV 1.13.ICAEDV/CCAEDV 1.55. Carotid Left Measurements + +----+----+-----+------ ------+ + + !Location !PSV !EDV !Angle! %Stenosis 2D!%Stenosis Doppler!Tortuosity ! + +----+----+-----+------ ------+ + + !Prox CCA !135 !28.8!60 !! ! ! + +----+----+-----+------ ------+ + + !Dist CCA !139 !32.7!60 !! ! ! + +----+----+-----+------ ------+ + + !Prox ICA !85.6!28.7!60 !!Normal ! ! + +----+----+-----+------ ------+ + + !Dist ICA !134 !40.9!60 !! ! ! + +----+----+-----+------ ------+ + + !Prox ECA !130 !24.6!60 !! ! ! + +----+----+-----+------ ------+ + + !Vertebral!76.2!17.3!60 !! ! ! + +----+----+-----+------ ------+ + + !Prox Subclavian!187 !!60 !! ! ! + +----+----+-----+------ ------+ + + - There is antegrade vertebral flow noted on the left side. - Additional Measurements:ICAPSV/CC APSV 0.96.ICAEDV/CCAEDV 1.42. Narrative Performed At [facility] - Carotid Duplex Study [facility] ECHO HEARTLAB Demographics [facility] Patient Name INDRA GALVAN Date of Study05/06/2019 RUSS VEE JR. [id number] Age38 Visit Number [id number] Gender Male Accession Number [id number] Date of Birth1980 [facility] Room [id number] PhysicianAGASCAR SonographerGreghali MARINOS Interpreting Josh Meeks Procedure Type of Study: Cerebral: Carotid, CAROTID DOPPLER, CASSIDY ATERAL. Indications for Study:Pre transplant ev aluation. Patient Status:Routine. Study Location:Vascular Lab. Technical Quality:Adequate visualizatio n. Risk Factors History of Disease + + +------- + !Diagnosis!Date!Comments ! + + +------- + !History/Risk !06/04/2018!A RDS, HTN, Obesity ! !Factors: !! ! + + +------- + !History/Risk !12/24/2018!H istory of fall 5 days ago, ESRD, LIver! !Factors: !!failure ! + + +------- + Procedure Note Interface, External Ris In - 05/07/2019 4:57 PM CDT [facility] - Carotid Duplex Study Demographics Patient Name INDRA GALVAN Date of Study 05/06/2019 YAN CORDERO Age 38 Visit Number [id number] Gender Male Accession Number [id number] Date of 1980 Referring Karen Carranza Room Number 7951 Physician SARAH Perinatal Breastfeeding Assistant Cb Maki S Interpreting Karen Blackwell, Physician Procedure Type of Study: Cerebral: Carotid, CAROTID DOPPLER, BILATERAL. Indications for Study:Pre transplant evaluation. Patient Status:Routine. Study Location:Vascular Lab. Technical Quality:Adequate visualization. Risk Factors History of Disease + + +-------- + !Diagnosis !Date !Comments ! + + +-------- + !History/Risk !06/04/2018!ARDS, HTN, Obesity ! !Factors: ! ! ! + + +-------- + !History/Risk !12/24/2018!History of fall 5 days ago, ESRD, LIver ! !Factors: ! !failure ! + + +-------- + Impressions Right Impression 1. The internal carotid artery is within normal limits. 2. The external carotid artery is within normal limits. 3. The common carotid artery is within n ormal limits. 4. The vertebral artery flow is antegrad e and normal. 5. The subclavian artery is within marianela l limits where visualized. Left Impression 1. The internal carotid artery is within normal limits. 2. The external carotid artery is within normal limits. 3. The common carotid artery is within n ormal limits. 4. The vertebral artery flow is antegrad e and normal. 5. The subclavian artery is within marianela l limits where visualized. Conclusions Summary Carotid duplex scanning and color flow imaging were performed bilaterally. The arteries were well visualized and no areas of stenosis were found bilaterally. Doppler flow velocities were within normal range bilaterally. The vertebral artery flow was antegrade and normal bilaterally. The subclavian arteries were patent with normal flow bilaterally where visualized. Signature Velocities are measured in cm/s ; Diameters are measured in cm Carotid Right Measurements + +----+----+-----+------- -----+ + + !Location !PSV !EDV !Angle!%Stenosis 2D!%Stenosis Doppler!Tortuosity ! + +----+----+-----+------- -----+ + + !Prox CCA !110 !24 !60 ! ! ! ! + +----+----+-----+------- -----+ + + !Dist CCA !112 !29.3!60 ! ! ! ! + +----+----+-----+------- -----+ + + !Prox ICA !115 !27.5!60 ! !Normal ! ! + +----+----+-----+------- -----+ + + !Dist ICA !127 !37.3!60 ! ! ! ! + +----+----+-----+------- -----+ + + !Prox ECA !131 !23.6!60 ! ! ! ! + +----+----+-----+------- -----+ + + !Vertebral !68.6!21.7!60 ! ! ! ! + +----+----+-----+------- -----+ + + !Prox Subclavian!163 ! !60 ! ! ! ! + +----+----+-----+------- -----+ + + - There is antegrade vertebral flow noted on the right side. - Additional Measurements:ICAPSV/CCAPSV 1.13.ICAEDV/CCAEDV 1.55. Carotid Left Measurements + +----+----+-----+------- -----+ + + !Location !PSV !EDV !Angle!%Stenosis 2D!%Stenosis Doppler!Tortuosity ! + +----+----+-----+------- -----+ + + !Prox CCA !135 !28.8!60 ! ! ! ! + +----+----+-----+------- -----+ + + !Dist CCA !139 !32.7!60 ! ! ! ! + +----+----+-----+------- -----+ + + !Prox ICA !85.6!28.7!60 ! !Normal ! ! + +----+----+-----+------- -----+ + + !Dist ICA !134 !40.9!60 ! ! ! ! + +----+----+-----+------- -----+ + + !Prox ECA !130 !24.6!60 ! ! ! ! + +----+----+-----+------- -----+ + + !Vertebral !76.2!17.3!60 ! ! ! ! + +----+----+-----+------- -----+ + + !Prox Subclavian!187 ! !60 ! ! ! ! + +----+----+-----+------- -----+ + + - There is antegrade vertebral flow noted on the left side. - Additional Measurements:ICAPSV/CCAPSV 0.96.ICAEDV/CCAEDV 1.42. Performing Organization Address City/State/Zipcode Ph one Number [facility] * REPORT OF PROCEDURE - ENDOSCOPY URL (05/06/2019 1:43 PM CDT) Narrative Performed At This result has an attachment that is n ot available. 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 Clinical History HGB 7.5 HCT 22.8 % FATTY LIVER, HTN, AFIB WITH RVR, ETOH C IRRHOSIS, PORTAL HTN, ESRD LIVER AND KIDNEY TRANSPLANT WORK UP Contrast Medium: Bubble Study. Height: 71 inches Weight: 83.01 kg (183 lbs) BSA: 2.03 m^2 BMI: 25.52 kg/m^2 HR: 81 bpm BP: 96/59 mmHg Summary A large circumferential pericardial eff usion is present with prominent fibrinous strands. Pericardial tamponade physiology is not evident based on available data . dynamics 16-20mmHg . The inferior vena cava size is increase d . A trace of tricuspid regurgitation. Estimated peak systolic PA pressure is 45-50 mmHg . Results communicated to Dr. Robbie New Previous Study In comparison with the prior exam the following changes are noted: pericardial effusion is new . Signature Findings Left Ventricle The left ventricle is chamber size (by PSLAX dimension) is normal (male - LVIDd 4.2-5.8cm) . Mild concentric LV hypertrophy. All of the LV segments contract normally . Global LV systolic function normal . LVEF by New's method of disk assessment is normal (>60%) . The LVEF was measured using New's bi-plane method of disk . Grade 2 diastolic dysfunction (moderately increased LA pressure). Left AtriumLA s ize is moderately enlarged (42-48 ml/m2) . Right VentricleThe righ t ventricular chamber size and systolic function are within normal limits. Right Atrium RA cav ity size is normal . Aortic Valve Normal AoV structure and function. Mitral Valve Normal MV structure. Trace mitral regurgitation. Tricuspid ValveTV struc ture is normal. A trace of tricuspid regurgitation. Estimated peak systolic PA pressure is 45-50 mmHg . Pulmonic Valve Normal P V structure and function. Aorta Aortic root size (SInus of Valsalva diameter) is normal . Proximal ascending aorta size is normal . PericardiumA la rge circumferential pericardial effusion is present with prominent fibrinous strands. Pericardial tamponade physiology is not evident based on available data . IVC/SVC/PA/PV/PleuralThe estimated RA pressure by IVC dynamics 16-20mmHg . The inferior vena cava size is increased . Chambers/Structures Left Atrium LA Volume: 87.98 ml LA Area: 21.87 cm^2 LA Vol. Index: 43 ml/m^2 Left Ventricle LVIDd: 4.84 cm LV Septum Diastolic: 1.25 cm LV PW Diastolic: 1.31 cm LVEDV New's:95.93 ml LVESV New's:33.43 ml LVEF New's: 65.2 % LVEDVI: 47 ml/m^2 LVESVI: 16 ml/m^2 LVOT Diameter: 2.1 cm Right Ventricle TAPSE: 1.87 cm Aorta Ao Root S of Yasmin.: 3.07 cm Ascending Aorta: 3.29 cm Doppler/Quantitative Measurements Mitral Valve MV Peak E-Wave: 1.24 m/s MV Peak A-Wave: 0.53 m/s E/A Ratio: 2.32 Peak Gradient: 6.14 mmHg Deceleration Time: 173.5 msec MV Deon. Peak: Tissue Doppler E' Septal Velocity: 0.09 m/s E/E': 13.19 E' Lateral Velocity: 0.08 m/s Aortic Valve Peak Velocity: 1.63 m/s Mean Velocity: 1.2 m/s Peak Gradient: 10.56 mmHg Mean Gradient: 6.24 mmHg AV Area (continuity): 3.17 cm^2 AV VTI: 27.59 cm AV DVI: 0.92 LVOT Peak Velocity: 1.45 m/s Peak Gradient: 8.41 mmHg Mean Velocity: 0.97 m/s Mean Gradient: 4.39 mmHg LVOT Diameter: 2.1 cm LVOT VTI: 25.27 cm LVOT Area: 3.46 cm^2 LVOT SV:87.48 ml LVOT CO: 7.09 l/min LVOT CI: 3.49 l/min/m^2 Tricuspid Valve TR Velocity: 2.75 m/s TR Gradient: 30.26 mmHg Procedure Note Interface, External Ris In - 05/06/2019 3:24 PM CDT Transthoracic Echocardiography Report (TTE) Demographics Patient Name INDRA GALVAN Date of Study 05/06/2019 YAN CORDERO Gender Male Visit Number [id number] Race Unknown Room Number 2454 Number Date of 1980 Referring Robbie New MD Physician Age 38 year(s) Perinatal Breastfeeding Assistant Aneudy Jerez Cafeteria Table Attendant Joanna Whitley Interpreting Pratik Pak Physician MD Vanesa Procedure Type of Study TTE procedure:2DECHO W DOPPLER(CW/PW/COLOR) (STAT) Indications:Acute Chest Pain/ Suspected CAD and Shortness of breath. Clinical History HGB 7.5 HCT 22.8 % FATTY LIVER, HTN, AFIB WITH RVR, ETOH CIRRHOSIS, PORTAL HTN, ESRD LIVER AND KIDNEY TRANSPLANT WORK UP Contrast Medium: Bubble Study. Height: 71 inches Weight: 83.01 kg (183 lbs) BSA: 2.03 m^2 BMI: 25.52 kg/m^2 HR: 81 bpm BP: 96/59 mmHg Summary A large circumferential pericardial effusion is present with prominent fibrinous strands. Pericardial tamponade physiology is not evident based on available data . dynamics 16-20mmHg . The inferior vena cava size is increased . A trace of tricuspid regurgitation. Estimated peak systolic PA pressure is 45-50 mmHg . Results communicated to Dr. Robbie New Previous Study In comparison with the prior exam 10-20-18 the following changes are noted: pericardial effusion is new . Signature Findings Left Ventricle The left ventricle is chamber size (by PSLAX dimension) is normal (male - LVIDd 4.2-5.8cm) . Mild concentric LV hypertrophy. All of the LV segments contract normally . Global LV systolic function normal . LVEF by New's method of disk assessment is normal (>60%) . The LVEF was measured using New's bi-plane method of disk . Grade 2 diastolic dysfunction (moderately increased LA pressure). Left Atrium LA size is moderately enlarged (42-48 ml/m2) . Right Ventricle The right ventricular chamber size and systolic function are within normal limits. Right Atrium RA cavity size is normal . Aortic Valve Normal AoV structure and function. Mitral Valve Normal MV structure. Trace mitral regurgitation. Tricuspid Valve TV structure is normal. A trace of tricuspid regurgitation. Estimated peak systolic PA pressure is 45-50 mmHg . Pulmonic Valve Normal PV structure and function. Aorta Aortic root size (SInus of Valsalva diameter) is normal . Proximal ascending aorta size is normal . Pericardium A large circumferential pericardial effusion is present with prominent fibrinous strands. Pericardial tamponade physiology is not evident based on available data . IVC/SVC/PA/PV/Pleural The estimated RA pressure by IVC dynamics 16-20mmHg . The inferior vena cava size is increased . Chambers/Structures Left Atrium LA Volume: 87.98 ml LA Area: 21.87 cm^2 LA Vol. Index: 43 ml/m^2 Left Ventricle LVIDd: 4.84 cm LV Septum Diastolic: 1.25 cm LV PW Diastolic: 1.31 cm LVEDV New's:95.93 ml LVESV New's:33.43 ml LVEF New's: 65.2 % LVEDVI: 47 ml/m^2 LVESVI: 16 ml/m^2 LVOT Diameter: 2.1 cm Right Ventricle TAPSE: 1.87 cm Aorta Ao Root S of Yasmin.: 3.07 cm Ascending Aorta: 3.29 cm Doppler/Quantitative Measurements Mitral Valve MV Peak E-Wave: 1.24 m/s MV Peak A-Wave: 0.53 m/s E/A Ratio: 2.32 Peak Gradient: 6.14 mmHg Deceleration Time: 173.5 msec MV Deon. Peak: Tissue Doppler E' Septal Velocity: 0.09 m/s E/E': 13.19 E' Lateral Velocity: 0.08 m/s Aortic Valve Peak Velocity: 1.63 m/s Mean Velocity: 1.2 m/s Peak Gradient: 10.56 mmHg Mean Gradient: 6.24 mmHg AV Area (continuity): 3.17 cm^2 AV VTI: 27.59 cm AV DVI: 0.92 LVOT Peak Velocity: 1.45 m/s Peak Gradient: 8.41 mmHg Mean Velocity: 0.97 m/s Mean Gradient: 4.39 mmHg LVOT Diameter: 2.1 cm LVOT VTI: 25.27 cm LVOT Area: 3.46 cm^2 LVOT SV:87.48 ml LVOT CO: 7.09 l/min LVOT CI: 3.49 l/min/m^2 Tricuspid Valve TR Velocity: 2.75 m/s TR Gradient: 30.26 mmHg Performing Organization Address City/State/Zipcode Ph one Number [facility] ECHO HEARTLAB [facility] * Transfuse Leuko-Red RBC (05/06/2019 3:24 AM CDT) Only the most recent of 27 results within the time period is included. * Troponin I (05/05/2019 9:09 PM CDT) Only the most recent of 3 results within the time period is included. Troponin I <0.01 0.00 - 0.03 ng/mL [facility] Specimen Blood Narrative Performed At Troponin I (TnI) levels must be interpreted in the co ntext of the presenting [facility] symptoms and the clinical findings. Elevated TnI leve ls indicate myocardial [facility] damage, but are not specific for ischem ic heart disease. Elevated TnI levels are seen in patients with other cardiac con ditions (including myocarditis and congestive heart failure), and slight T nI elevations occur in patients with other conditions, including sepsis, tay al failure, acidosis, acute neurological disease, and persistent tachyarrhythmia . Bag Maker ID - BS Performing Organization Address City/State/Zipcode Ph one Number [facility] [address] [place], [place] [address] [facility]ENTER * ECG 12 lead (05/05/2019 8:53 PM CDT) Only the most recent of 6 results within the time period is included. Specimen Narrative Performed At Ventricular Rate 128 BPM GE MUSE Atrial Rate 89 BPM QRS Duration 94 ms Q-T Interval 336 ms QTC Calculation(Bazett) 490 ms R [place] 151 degrees T [place] -88 degrees Atrial fibrillation Left posterior fascicular block ST & T wave abnormality, consider infer ior ischemia ST & T wave abnormality, consider anter olateral ischemia Abnormal ECG When compared with ECG of 05-MAY-2019 2 0:52, Atrial fibrillation Present Inverted T waves have replaced nonspeci fic T wave abnormality in Inferior leads Inverted T waves have replaced nonspeci fic T wave abnormality in Anterolateral leads Confirmed by MD KLINE JOSEPH P ([id number]) on 05/06/2019 6:34:11 AM Procedure Note Interface, External Ris In - 05/06/2019 6:34 AM CDT Ventricular Rate 128 BPM Atrial Rate 89 BPM QRS Duration 94 ms Q-T Interval 336 ms QTC Calculation(Bazett) 490 ms R [place] 151 degrees T [place] -88 degrees Atrial fibrillation Left posterior fascicular block ST & T wave abnormality, consider inferior ischemia ST & T wave abnormality, consider anterolateral ischemia Abnormal ECG When compared with ECG of 05-MAY-2019 20:52, Atrial fibrillation Present Inverted T waves have replaced nonspecific T wave abnormality in Inferior leads Inverted T waves have replaced nonspecific T wave abnormality in Anterolateral leads Confirmed by MD KLINE JOSEPH P ([id number]) on 05/06/2019 6:34:11 AM Performing Organization Address [facility] [address]/[facility] one Number GE MUSE * Hepatitis B surface antigen (05/05/2019 3:02 PM CDT) Only the most recent of 3 results within the time period is included. HBsAg Screen Nonreactive Nonreactive [facility] Specimen Blood Narrative Performed At Bag Maker ID - BS [facility] Performing Organization Address [facility] [address]/[facility] one [address] [facility] * Occult blood, stool (05/05/2019 12:07 PM CDT) Occult blood Negative Negative [facility] Specimen Stool Performing Organization Address [facility] one [address] [facility] * ABORH, manual (05/05/2019 9:51 AM CDT) ABO Grouping B [facility] Rh Factor POS [facility] Specimen Blood Performing Organization Address [address] [phone] [facility] * Iron, TIBC, % sat. (without ferritin) (05/05/2019 9:51 AM CDT) Only the most recent of 2 results within the time period is included. Iron 88.0 40.0 - 160.0 ug/dL [facility] TIBC 130 (L) 250 - 450 ug/dL [facility] Iron % Saturation 68 (H) 20 - 55 % [facility] Specimen Blood Narrative Performed At Bag Maker ID - PIAYA L [facility] Performing Organization Address [facility] [address]/[facility] one [address] [phone] [address] * Reticulocyte count (05/05/2019 9:51 AM CDT) Only the most recent of 2 results within the time period is included. % Retic 2.3 (H) 0.5 - 1.8 % [facility] Specimen Blood Narrative Performed At Bag Maker ID - [id number] [facility] Performing Organization Address [facility] [address]/[facility] Ph one [place] [phone] [place] [address] * Direct [facility] (LUMA)/Direct Antonia (05/05/2019 9:51 AM CDT) Direct [facility]-IGG NEGATIVE [facility] Direct [facility]HG-C3B, C3D NEGATVIE [facility] Specimen Blood Performing Organization Address [facility] [address]/[facility] one [place] [phone] * Ferritin (05/05/2019 9:51 AM CDT) Only the most recent of 2 results within the time period is included. Ferritin 1,081 (H) 5 - 275 ng/mL [facility] Specimen Blood Narrative Performed At Bag Maker ID - AAHAMID [facility] Performing Organization Address [facility] [address] [facility] Ph one Number [place] [address] 0 [phone] [address] * Lactic acid, venous (05/05/2019 12:29 AM CDT) Only the most recent of 6 results within the time period is included. Lactate, Venous 2.6 (H) 0.5 - 2.2 mmol/L [facility] Specimen Blood Narrative Performed At Bag Maker ID - PIAYA L [facility] slightly icteric [facility] Performing Organization Address [facility] [address]/[facility] Ph one Number [place] [address] 0 [phone] [address] * Type and screen, automated ([facility] and [facility] only) (05/04/2019 8:42 PM CDT) Only the most recent of 8 results within the time period is included. ABO/RH AUTOMATED (BEAKER) B POSITIVE [facility] Ab Scrn NEGATIVE [facility] Specimen Blood Performing Organization Address City/State/Zipcode Ph one Number [facility] [address] [place] [address] [facility] * Urinalysis w/Microscopic + Reflex to Culture (05/04/2019 7:53 PM CDT) Only the most recent of 6 results within the time period is included. Color, UA Yellow [facility] Clarity, UA Hazy [facility] Specific [place], UA 1.011 1.001 - 1.035 [facility] pH, UA 5.5 5.0 - 8.0 [facility] Protein, UA 100 mg/dL (A) Negative [facility] Glucose, UA 100 mg/dL (A) Negative [facility] Ketones, UA Negative Negative [facility] Bilirubin, UA Negative Negative [facility] Blood, UA Negative Negative [facility] Nitrite, UA Negative Negative [facility] Leukocytes, UA Negative Negative [facility] Urobilinogen, UA 0.2 0.2 - 1.0 mg/dL [facility] RBC, UA 7 /HPF [facility] WBC, UA 12 /HPF [facility] Bacteria, UA Occasional [facility] Mucus Rare [facility] Squam Epithel, UA 18 /HPF [facility] Hyaline Casts, UA 78 /LPF [facility] Casts 70 /LPF [facility] Crystals, Urine Occasional [facility] Yeast Moderate [facility] Specimen Source [facility] Specimen Urine Narrative Performed At Bag Maker ID - [auto] [facility] Bag Maker ID - tech [facility] Performing Organization Address City/[facility] [address] [facility] Ph one Number [address] [facility] * Strep pneumoniae antigen (05/04/2019 7:53 PM CDT) Strep pneumoniae Antigen Presumptive negative for Presumptive negative for [facility] pneumococcal pneumonia - see pneumococcal pneumonia - [facility] comment see comment, Presumptive negative for pneumococcal meningitis - see comment Specimen Urine Narrative Performed At Presumptive negative for pneumococcal p neumonia, suggesting no current or recent [facility] pneumococcal infection. Infection due t o S. pneumoniae cannot be ruled out since [facility] the antigen present in the sample may b e below the detection limit of the test. Performing Organization Address City/[facility] [address]/[facility] one Number [address] [facility] * Legionella antigen, urine (05/04/2019 7:53 PM CDT) Legionella Urine Antigen Negative - see commentComment: [facility] Negative for L. pneumophila [facility] serogroup 1 antigen, suggesting no recent or current infection with this serogroup. Legionellosis cannot be ruled out since other serogroups and species may cause disease. Specimen Urine Performing Organization Address City/[facility] [address]/[facility] Ph one Number [address] [facility] * Urine culture (05/04/2019 7:53 PM CDT) Only the most recent of 2 results within the time period is included. Result <10,000 col/mL skin chase [facility] Specimen Urine Performing Organization Address [facility] [address]/[facility] one Number [address] [facility] * PT/aPTT (05/04/2019 7:29 PM CDT) Only the most recent of 4 results within the time period is included. Protime 18.9 (H) 11.9 - 14.2 seconds [facility] INR 1.6 <=5.9 [facility] PTT 40.7 (H) 22.5 - 36.0 seconds [facility] Specimen Blood Narrative Performed At Effective 07/24/2018: PT Reference Range Change [facility] New: 11.9-14.2Previous: 11.7-14.7 [facility] MEDICAL CE NTER RECOMMENDED COUMADIN/WARFARIN INR THERA PY RANGES STANDARD DOSE: 2.0-3.0Includes: PRO PHYLAXIS for venous thrombosis, systemic embolization; TREATMENT for venous thro mbosis and/or pulmonary embolus. HIGH RISK: Target INR is 2.5-3.5 for pa tients wiht mechanical heart valves. Performing Organization Address [facility] one Number [place] [address] [facility] * Blood Culture - Routine (Left Venipuncture) (05/04/2019 7:29 PM CDT) Only the most recent of 16 results within the time period is included. Result No growth in 5 days [facility] Specimen Blood Performing Organization Address [facility] [address]/[facility] one Number [address] [facility] * B-type Natriuretic Factor (BNP) (05/04/2019 7:29 PM CDT) BNP 612 (H) 0 - 100 pg/mL [facility] Specimen Blood Narrative Performed At Bag Maker ID - DB [facility] Performing Organization Address [facility] [address]/[facility] Ph one Number [address] 0 [phone] [address] * Rapid Influenza A&B Screen (05/04/2019 7:28 PM CDT) Rapid Influenza A Antigen Negative Negative, Inconclusi ve [facility] Rapid influenza B Antigen Negative Negative, Inconclusi ve [facility] Specimen Nasal Performing Organization Address [facility] [address] [facility] Ph one [place] [address] 0 [phone] [address] * CRITICAL CARE (05/04/2019 6:47 PM CDT) Narrative Performed At Juanpablo Calhoun MD 09:12 PM Critical Care Performed by: Juanpablo Calhoun MD Authorized by: Juanpablo Calhoun MD Total critical care time: 59 minutes Critical care was necessary to treat or prevent imminent or life-threatening deterioration of the f ollowing conditions: sepsis. Critical care was time spent personally by me on the following activities: discussions with consultants, discussio ns with primary provider, interpretation of cardiac output measur ements, evaluation of patient's response to treatment, examination of p atient, obtaining history from patient or surrogate, ordering and perf orming treatments and interventions, ordering and review of l aboratory studies, ordering and review of radiographic studies, pulse o ximetry, re-evaluation of patient's condition and review of old charts. * XR chest 1 view portable / bedside (05/04/2019 6:05 PM CDT) Only the most recent of 5 results within the time period is included. Specimen Narrative Performed At FINAL REPORT [facility] EXAM: Chest one view COMPARISON: December 22, 2018 Clinical history: Weakness FINDINGS: There is persistent cardiomeg daniel. There is interval improvement in pulmonary edema. The rig ht internal jugular chest tunneled dialysis catheter appears unch anged in position. The regional osseous structures are unremar kable Signed: Victorino Haines MD Report Verified Date/Time: 0 18:08:08 Reading Location: [facility] [place] C013T Transiti onal Reading Room Procedure Note Interface, External Ris In - 05/04/2019 6:10 PM CDT FINAL REPORT EXAM: Chest one view COMPARISON: December 22, 2018 Clinical history: Weakness FINDINGS: There is persistent cardiomegaly. There is interval improvement in pulmonary edema. The right internal jugular chest tunneled dialysis catheter appears unchanged in position. The regional osseous structures are unremarkable Signed: Victorino Haines MD Report Verified Date/Time: 05/04/2019 18:08:08 Reading Location: [facility] B1 C013T Transitional Reading Room Performing Organization Address City/State/Zipcode Ph one Number [employer] * US pelvis with doppler (02/03/2019 9:35 AM SENIOR CENTER DIRECTOR) Specimen Narrative Performed At FINAL REPORT [employer] Pelvic ultrasound dated 02/03/2019. COMMENT: Real-time transpelvic ultrasou nd was performed. Color Doppler and spectral analysis of hepatic vasculature were obtained. The distal abdominal aorta is normal in caliber measuring 1.7 cm. The right common iliac artery measures 1.1 cm. The right external iliac artery measures 1.1 cm. The right internal iliac artery is not visualized. The left common iliac artery measures 1 .1 cm. The left external iliac artery measures 1.0 cm. The left video editing intern al iliac artery is not visualized. The bilateral common and external iliac veins are patent. IMPRESSION: Unremarkable pelvic vascula ture. Signed: Keith Garcia MD Report Verified Date/Time: 9 11:35:01 Reading Location: [address] Radiolo gy Reading Room Procedure Note Interface, External Ris In - 02/03/2019 11:37 AM SENIOR CENTER DIRECTOR FINAL REPORT Pelvic ultrasound dated 02/03/2019. COMMENT: Real-time transpelvic ultrasound was performed. Color Doppler and spectral analysis of hepatic vasculature were obtained. The distal abdominal aorta is normal in caliber measuring 1.7 cm. The right common iliac artery measures 1.1 cm. The right external iliac artery measures 1.1 cm. The right internal iliac artery is not visualized. The left common iliac artery measures 1.1 cm. The left external iliac artery measures 1.0 cm. The left internal iliac artery is not visualized. The bilateral common and external iliac veins are patent. IMPRESSION: Unremarkable pelvic vasculature. Signed: Keith Garcia MD Report Verified Date/Time: 02/03/2019 11:35:01 Reading Location: [address] Radiology Reading Room Performing Organization Address [facility] one Number [facility] * Vitamin B12 and Folate (01/18/2019 5:47 PM SENIOR CENTER DIRECTOR) Only the most recent of 2 results within the time period is included. Vitamin B12 1,988 (H) 213 - 816 pg/mL [facility] Folate 17.8 >=7.0 ng/mL [facility] Specimen Blood Performing Organization Address [facility] one Number [address] [facility] * Lactate dehydrogenase (LDH) (01/18/2019 5:47 PM SENIOR CENTER DIRECTOR) Only the most recent of 3 results within the time period is included. LDH 192 125 - 220 U/L [facility] Specimen Blood Performing Organization Address [facility] [address] [facility] one Number [address] [facility] * Haptoglobin (01/18/2019 5:47 PM SENIOR CENTER DIRECTOR) Only the most recent of 3 results within the time period is included. Haptoglobin 14 14 - 258 mg/dL [facility] Specimen Blood Performing Organization Address [facility] [address]/[facility] one Number [address] [facility] * Hemoglobin and hematocrit (01/18/2019 11:17 AM SENIOR CENTER DIRECTOR) Only the most recent of 3 results within the time period is included. Hemoglobin 7.5 (L) 13.7 - 17.5 GM/DL [facility] Hematocrit 23.0 (L) 40.1 - 51.0 % [facility] Specimen Blood Performing Organization Address [facility] [address] [facility] Ph one Number [facility] [address] [place], [place] [address] [facility] * CBC (Hemogram only) (01/18/2019 2:51 AM SENIOR CENTER DIRECTOR) Only the most recent of 5 results within the time period is included. WBC 6.6 3.5 - 10.5 K/L [facility] RBC 2.11 (L) 4.63 - 6.08 M/L [facility] Hemoglobin 6.7 (L) 13.7 - 17.5 GM/DL [facility] Hematocrit 20.2 (L) 40.1 - 51.0 % [facility] MCV 95.7 (H) 79.0 - 92.2 fL [facility] MCH 31.8 25.7 - 32.2 pg [facility] MCHC 33.2 32.3 - 36.5 GM/DL [facility] RDW 17.3 (H) 11.6 - 14.4 % [facility] Platelets 74 (L) 150 - 450 K/CU MM [facility] MPV 10.1 9.4 - 12.4 fL [facility] nRBC 0 0 - 0 /100 WBC [facility] Specimen Blood Performing Organization Address City/[facility] [address] [facility] Ph one Number [facility] [address], [place] [address] [facility] * HLA TYPING CII (01/16/2019 3:56 PM SENIOR CENTER DIRECTOR) HLA-DR AG1 15 [facility] HLA-DR AG2 4 [facility] HLA-DR AG4-2 53 [facility] HLA-DR AG5-1 51 [facility] HLA-DQA1 AG 1-1 01 [facility] HLA-DQA1 AG 1-2 03 [facility] HLA-DQB1 AG 1-1 6 [facility] HLA-DQB1 AG 1-2 8 [facility] HLA-DPA1 AG 1-1 01 [facility] HLA-DPA1 AG 1-2 01 [facility] HLA-DPB1 AG 1-1 02:01 [facility] HLA-DPB1 AG 1-2 04:02 [facility] Specimen Blood Narrative Performed At Disclaimer: [facility] This test was developed and its perform ance characteristics determined by the [facility]. It has not been cleared or approved by the U.S. Food and Drug Administration. The FDA has determined that such clearance or approval is not necessary. This test is used for clinic al purposes. It should not be regarded as investigational or for research. This l aboratory is certified under the Clinical Laboratory Improvement Amendments of 19 88 (CLIA-88) as qualified to perform high complexity clinical laboratory testing. Performing Organization Address City/State/Zipcode Ph one Number [facility] [address] [facility] [place], [place]: [id number], [place] [address] CLIA#[id number] CAP#[id number] UNOS#[id number] * HLA TYPING CI (01/16/2019 3:56 PM SENIOR CENTER DIRECTOR) HLA-A AG1 3 [facility] HLA-A AG2 68 [facility] HLA-B AG1 7 [facility] HLA-B AG2 35 [facility] HLA-C AG1 7 [facility] HLA-C AG2 7 [facility] HLA-B BW1 6 [facility] HLA-B BW2 6 [facility] Specimen Blood Narrative Performed At Disclaimer: [facility] This test was developed and its perform ance characteristics determined by the [facility]. It has not been cleared or approved by the U.S. Food and Drug Administration. The FDA has determined that such clearance or approval is not necessary. This test is used for clinic al purposes. It should not be regarded as investigational or for research. This l aboratory is certified under the Clinical Laboratory Improvement Amendments of (CLIA-88) as qualified to perform high complexity clinical laboratory testing. Performing Organization Address [facility] [address] [facility] one Number [facility] [place], [place]: [id number], [place] [address] CLIA#[id number] CAP#[id number] UNOS#[id number] * FLOW PRA CLASS II WITH REFLEX TO ANTIBODY SPECIFICITY (01/16/2019 3:56 PM SENIOR CENTER DIRECTOR) Flow Class II Percent 0 [facility] NG Positive Specimen Blood Narrative Performed At Disclaimer: [facility] This test was developed and its perform ance characteristics determined by the [facility]. It has not been cleared or approved by the U.S. Food and Drug Administration. The FDA has determined that such clearance or approval is not necessary. This test is used for clinic al purposes. It should not be regarded as investigational or for research. This l aboratory is certified under the Clinical Laboratory Improvement Amendments of (CLIA-88) as qualified to perform high complexity clinical laboratory testing. Performing Organization Address [facility] one Number [facility] [place]za, MS: [id number], [place] [address] CLIA#[id number] CAP#[id number] UNOS#[id number] * FLOW PRA CLASS I WITH REFLEX TO ANTIBODY SPECIFICITY (01/16/2019 3:56 PM SENIOR CENTER DIRECTOR) Flow Class I Percent 20 [facility] G Positive Specimen Blood Narrative Performed At Disclaimer: [facility] This test was developed and its perform ance characteristics determined by the [facility]. It has not been cleared or approved by the U.S. Food and Drug Administration. The FDA has determined that such clearance or approval is not necessary. This test is used for clinic al purposes. It should not be regarded as investigational or for research. This l aboratory is certified under the Clinical Laboratory Improvement Amendments of (CLIA-88) as qualified to perform high complexity clinical laboratory testing. Performing Organization Address [facility]/Zipcode Ph one Number [facility] ONE [facility] [place], [place]: [id number], [place] [address] CLIA#[id number] CAP#[id number] UNOS#[id number] * AB SPECIFICITY CLASS I (01/16/2019 3:56 PM SENIOR CENTER DIRECTOR) AB Specificity Class I NO CLASS I ANTIBODY DETECTED [facility] WITH MFIs > 4000 Specimen Blood Narrative Performed At Disclaimer: [facility] This test was developed and its perform ance characteristics determined by the [facility]. It has not been cleared or approved by the U.S. Food and Drug Administration. The FDA has determined that such clearance or approval is not necessary. This test is used for clinic al purposes. It should not be regarded as investigational or for research. This l aboratory is certified under the Clinical Laboratory Improvement Amendments of 19 88 (CLIA-88) as qualified to perform high complexity clinical laboratory testing. Performing Organization Address [facility] [address] [facility] one Number [facility] ONE [facility] [place], [place]: [id number], [place] [address] CLIA#[id number] CAP#[id number] UNOS#[id number] * Alpha fetoprotein (AFP), tumor marker (01/16/2019 3:56 PM SENIOR CENTER DIRECTOR) Alpha-Fetoprotein 2.7 <10.0 ng/mL [facility] Specimen Blood Performing Organization Address [facility] one Number [address] [facility] * Drug screen, urine, transplant (01/04/2019 5:39 PM SENIOR CENTER DIRECTOR) Specimen Urine Narrative Performed At This result has an attachment that is n ot available. Performing Organization Address [facility] [address] [facility] one Number [facility] [address] [phone] * Drug screen, urine, comprehensive (01/04/2019 5:39 PM SENIOR CENTER DIRECTOR) Only the most recent of 2 results within the time period is included. Specimen Urine Narrative Performed At This result has an attachment that is n ot available. * Ethanol (01/04/2019 9:42 AM SENIOR CENTER DIRECTOR) Only the most recent of 2 results within the time period is included. Ethanol Lvl <10 <=10 mg/dL [facility] Specimen Blood Performing Organization Address City/State/Zipcode Ph one Number [facility] [address], [place] [address] [facility] * Vancomycin level, random (12/26/2018 3:56 AM CDT) Only the most recent of 2 results within the time period is included. Vancomycin Rm 16.4 ug/mL [facility] Specimen Blood Narrative Performed At Reference Range: No Normals [facility] Performing Organization Address City/State/[facility] Cent[facility] Ph one Number [facility] [address], [place] [address] [facility] * Venous doppler legs bilateral (12/24/2018 6:55 PM CDT) Ejection Fraction [facility] Specimen Impressions Performed At Right Impression [facility] 1. There is no deep venous obstruction in the common femoral, profunda [facility] femoral, femoral, popliteal, posterior tibial or peroneal veins. 2. There is no superficial venous obstr uction in the great saphenous vein. Left Impression 1. There is no deep venous obstruction in the common femoral, profunda femoral, femoral, popliteal, posterior tibial or peroneal veins. 2. There is no superficial venous obstr uction in the great saphenous vein. Conclusions Summary Venous duplex imaging and compression o f the bilateral lower extremities were performed. The veins were adequate ly visualized. The bilateral venous systems were patent and compressible wi th no evidence of thrombus. The venous Doppler waveforms were pulsatile indicating possible elevated right heart filling pressure . Signature Velocities are measured in cm/s ; Diame ters are measured in cm Narrative Performed At [facility] - Lower Extremities DVT Study [facility] Demographics [facility] Patient Name INDRA GALVAN Date of Study12/24/2018 RUSS VEE JR. [id number] Age38 Visit Number [id number] Gender Male Accession Number [id number] Date of Birth1980 Barry Hoyt Vlad [id number] Physician SonographDagoberto Maki RVS Interpreting Physician ConstantinoMD Procedure Type of Study: Veins: Lower Extremities DVT Study, GIULIA OUS DOPPLER LEG, BILATERAL. Indications for Study:Leg swelling. Patient Status:Routine. Study Location:Portable. Technical Quality:Adequate visualizatio n. Risk Factors History of Disease + + +------- + !Diagnosis!Date!Comments ! + + +------- + !History/Risk !06/04/2018!A RDS, HTN, Obesity ! !Factors: !! ! + + +------- + !History/Risk !12/24/2018!H istory of fall 5 days ago, ESRD, LIver! !Factors: !!failure ! + + +------- + Procedure Note Interface, External Ris In - 12/25/2018 12:50 PM CDT [facility] - Lower Extremities DVT Study Demographics Patient Name INDRA GALVAN Date of Study 12/24/2018 YAN CORDERO Age 38 Visit Number [id number] Gender Male Accession Number [id number] Date of 1980 Referring Audie Hoyt MD Room Number 7604 Physician Perinatal Breastfeeding Assistant Cb Maki RVS Interpreting Physician MELVA Meeks Procedure Type of Study: Veins: Lower Extremities DVT Study, VENOUS DOPPLER LEG, BILATERAL. Indications for Study:Leg swelling. Patient Status:Routine. Study Location:Portable. Technical Quality:Adequate visualization. Risk Factors History of Disease + + +-------- + !Diagnosis !Date !Comments ! + + +-------- + !History/Risk !06/04/2018!ARDS, HTN, Obesity ! !Factors: ! ! ! + + +-------- + !History/Risk !12/24/2018!History of fall 5 days ago, ESRD, LIver ! !Factors: ! !failure ! + + +-------- + Impressions Right Impression 1. There is no deep venous obstruction i n the common femoral, profunda femoral, femoral, popliteal, posterior tibial or peroneal veins. 2. There is no superficial venous obstru ction in the great saphenous vein. Left Impression 1. There is no deep venous obstruction i n the common femoral, profunda femoral, femoral, popliteal, posterior tibial or peroneal veins. 2. There is no superficial venous obstru ction in the great saphenous vein. Conclusions Summary Venous duplex imaging and compression of the bilateral lower extremities were performed. The veins were adequately visualized. The bilateral venous systems were patent and compressible with no evidence of thrombus. The venous Doppler waveforms were pulsatile indicating possible elevated right heart filling pressure . Signature Velocities are measured in cm/s ; Diameters are measured in cm Performing Organization Address City/State/Zipcode Ph one Number [facility] * HEMODIALYSIS INPATIENT (12/23/2018 11:25 PM CDT) Narrative Performed At Flakita Wilkinson RN 12/24/2018 1 2:23 AM Verified informed consent signed for HD . Patient completed 4 hours of HD via right SC CVC, with net fluid removal of 2 liters. Asymptomatic hypotension throughout sarah atment.2 doses of Mannitol 12.5 G administered for BP sup port.Report given to Nahid Cheng RN. Lab Results Component Value Date WBC 7.3 12/23/2018 HGB 7.0 (L) 12/23/2018 HCT 20.7 (L) 12/23/2018 MCV 96.7 (H) 12/23/2018 PLT 71 (L) 12/23/2018 Lab Results Component Value Date GLUCOSE 103 12/23/2018 CALCIUM 9.4 12/23/2018 NA 139 12/23/2018 K 4.6 12/23/2018 CO2 24 12/23/2018 CL 105 12/23/2018 BUN 23 (H) 12/23/2018 CREATININE 6.77 (H) 12/23/2018 Results for INDRA GALVANNANDA CORDERO ( ) as of 12/23/2018 23:27 Ref. Range 12/23/2018 04:01 Hepatitis B Surface Ag Latest Ref Range : NonreactiveNonreactive * CT lower extremity without IV contrast right (12/22/2018 9:04 PM CDT) Specimen Narrative Performed At FINAL REPORT [facility] CT right lower extremity. CLINICAL HISTORY: Knee trauma, tenderne ss or effusion, initial exam (Age > 1y) TECHNIQUE: Contiguous axial images of t he right lower extremity without contrast with coronal and sagit chely reformations. This exam was performed according to the [facility] dose optimization program which includes automated exposure contr ol, adjustment of the mA and/or kV according to the patient size , and/or use of an iterative reconstruction technique. COMPARISON: None FINDINGS: Sclerosis in the lateral femoral condyl e favored to represent a bone island.Incidentally noted fabella. No acute fracture. Trace knee joint effusion.Soft tissue irregula rity anterior to the tibial tuberosity favored to represent lacerat ion/contusion. Vascular calcifications. IMPRESSION: No acute fracture. Trace knee joint effusion. Soft tissue irregularity anterior to th e tibial tuberosity favored to represent laceration/contusion. Signed: Cherri Olivier MD Report Verified Date/Time: 9 03:00:15 Procedure Note Interface, External Ris In - 12/23/2018 3:03 AM CDT FINAL REPORT CT right lower extremity. CLINICAL HISTORY: Knee trauma, tenderness or effusion, initial exam (Age > 1y) TECHNIQUE: Contiguous axial images of the right lower extremity without contrast with coronal and sagittal reformations. This exam was performed according to the departmental dose optimization program which includes automated exposure control, adjustment of the mA and/or kV according to the patient size, and/or use of an iterative reconstruction technique. COMPARISON: None FINDINGS: Sclerosis in the lateral femoral condyle favored to represent a bone island. Incidentally noted fabella. No acute fracture. Trace knee joint effusion. Soft tissue irregularity anterior to the tibial tuberosity favored to represent laceration/contusion. Vascular calcifications. IMPRESSION: No acute fracture. Trace knee joint effusion. Soft tissue irregularity anterior to the tibial tuberosity favored to represent laceration/contusion. Signed: Cherri Olivier MD Report Verified Date/Time: 12/23/2018 03:00:15 Performing Organization Address [facility] one Number [facility] * Vancomycin level, trough (12/22/2018 4:26 PM CDT) Vancomycin Tr 40.3 (HH) 10.0 - 20.0 ug/mL [facility] Specimen Blood Performing Organization Address [facility] Ph one Number [address] [facility] * Fibrinogen (12/22/2018 3:55 AM CDT) Fibrinogen 195 (L) 225 - 434 mg/dl [facility] Specimen Blood Performing Organization Address [facility] [address]/[facility] one Number [address] [facility] * POC-Lactic Acid, Venous (12/21/2018 4:01 AM CDT) Only the most recent of 2 results within the time period is included. POC-Lactic Acid, Venous 1.6Comment: TESTED AT [facility] 0.9 - 1.7 mmol/L [place] [id number] [facility] [id number] [facility] Specimen Blood Performing Organization Address [facility] [address]/[facility] Ph one Number [facility] [address], [place] [address] [facility] * Ammonia (12/21/2018 2:48 AM CDT) Only the most recent of 2 results within the time period is included. Ammonia 65 18 - 72 mol/L [facility] Specimen Blood Performing Organization Address [facility] Ph one Number [facility] [address], [place] [address] [facility] * XR knee complete 4 views right (12/21/2018 1:39 AM CDT) Specimen Narrative Performed At FINAL REPORT [facility] CLINICAL HISTORY: Trauma and pain, lace ration COMPARISON: None. FINDINGS: 5 views of the right knee are submitted . There is soft tissue irregularity at th e infrapatellar/pretibial soft tissues of the knee, probably the lacer ation described in the history. The patellofemoral alignment i s normal. There is no acute fracture, malalignmen t or radiopaque foreign body. No significant knee joint effusion is p resent. Signed: Katherine Reich MD Report Verified Date/Time: 9 01:49:02 Procedure Note Interface, External Ris In - 12/21/2018 1:51 AM CDT FINAL REPORT CLINICAL HISTORY: Trauma and pain, laceration COMPARISON: None. FINDINGS: 5 views of the right knee are submitted. There is soft tissue irregularity at the infrapatellar/pretibial soft tissues of the knee, probably the laceration described in the history. The patellofemoral alignment is normal. There is no acute fracture, malalignment or radiopaque foreign body. No significant knee joint effusion is present. Signed: Katherine Reich MD Report Verified Date/Time: 12/21/2018 01:49:02 Performing Organization Address City/State/Zipcode Ph one Number [facility] * CRITICAL CARE (12/21/2018 1:10 AM CDT) Narrative Performed At Víctor Dumont MD 12/244:23 AM Critical Care Performed by: Víctor Dumont MD Authorized by: Víctor Dumont M D Total critical care time: 60 minutes Critical care time was exclusive of sep arately billable procedures and treating other patients and teaching ti me. Critical care was necessary to treat or prevent imminent or life-threatening deterioration of the f ollowing conditions: hepatic failure and circulatory failure. Critical care was time spent personally by me on the following activities: blood draw for specimens, development o f treatment plan with patient or surrogate, discussions with consultants , interpretation of cardiac output measurements, evaluation of patient's r esponse to treatment, examination of patient, obtaining history from polo ent or surrogate, ordering and performing treatments and interventions , ordering and review of laboratory studies, ordering and review of radiogr aphic studies, pulse oximetry, re-evaluation of patient's condition an d review of old charts. * Manual Differential (11/15/2018 11:16 AM CDT) % Neutros (manual) 80 % [facility] % Lymphs (manual) 6 % [facility] % Monos (manual) 7 % [facility] % Eos (manual) 4 % [facility] % Baso (manual) 0 % [facility] % Bands (manual) 3 0 - 10 % [facility] # Neutros (manual) 15.76 (H) 1.80 - 8.00 K/L [facility] # Lymphs (manual) 1.18 (L) 1.48 - 4.50 K/L [facility] # Monos (manual) 1.38 (H) 0.00 - 1.30 K/L [facility] # Eos (manual) 0.79 (H) 0.00 - 0.50 K/L [facility] # Baso (manual) 0.00 0.00 - 0.20 K/L [facility] # Bands (manual) 0.6 0.0 - 0.8 K/L [facility] Total Counted 100 [facility] Bands plus Segmented 16.35 [facility] Neutrophils [facility] WBC Morphology Normal [facility] Platelet Morphology Normal [facility] TH [facility] Anisocytosis 2+ moderate [facility] All Cells 2+ moderate [facility] Poikilocytes 1+ few [facility] Specimen Blood Performing Organization Address City/State/Zipcode Ph one Number [place] [address] [facility] * IR Tunneled Catheter Insertion (11/14/2018 12:38 PM CDT) Specimen Narrative Performed At FINAL REPORT [facility] Conversion of a nontunneled to tunneled dialysis catheter. History: Renal failure. Modality: Fluoroscopy. Sedation: Moderate sedation was adminis tered. 0.5 mg of Versed and 50 mcg of fentanyl IV was used for mode rate sedation monitored under my direction. Total intra-service time of sedation [id number]. The patient's vital signs were monitore d throughout the procedure and recorded in the patient's medical recor d by the nurse. Carton Catcher:Regis Ortega MD. Document Image Technician:None. Approach: Right internal jugular vein Estimated blood loss:< 5 cc. Specimen: None. Fluoroscopy Time: 0.5 min.Dose (Ka,r): 6.0 mGy. Technique: Informed written consent was obtained.Discussion of risks, benefits, and alternatives were made with the patient. The patient expressed understanding and agr eed to proceed.All elements maximal sterile barrier technique was u tilized for this procedure, including utilization of sterile scrub solution for skin prep, a large sterile sheet to cover the areas of the patient that were not prepped, and hand hygiene, mask, head c overing, and sterile gown for performing radiologist and scrub techno logist. The skin was anesthetized with 2% lidoc vani. A 0.35 inch diameter guidewire was inserted through the exis ting nontunneled dialysis catheter into the IVC. A subcutaneous tunnel was created in th e right anterior chest wall by blunt dissection.A 19 cm right Fren ch Duraflow 2 catheter was brought through the tunnel. The existin g nontunneled hemodialysis catheter was then removed over the guid ewire. A peel-away sheath was placed in the right IJ vein and the cat heter was advanced through the sheath, with its distal tip terminating in the right atrium.The peel-away sheath was removed. The ports were flushed and aspirated easily following placement.The cath eter was sutured to the skin with 2-0 proline to secure its placemen t.A resorbable pursestring sutures placed at the catheter exit sit e. The small jugular incision site was closed using resorbable suture . Vital signs were monitored throughout the procedure by a nurse, melva davison remained stable.The patient tolerated the procedure well an d left the department in the same condition. Results:Spot radiograph of the ches t demonstrates the new dialysis catheter to lie in the expected positio n with its tip overlying the superior right atrium. Impression: Successful, uncomplicated conversion of a nontunneled right internal jugular to a tunneled dialysis catheter . Signed: Regis Ortega MD Report Verified Date/Time: 10:01:43 Reading Location: [place] [id number] Angio Bod y Reading Room Procedure Note Interface, External Ris In - 11/15/2018 10:03 AM CDT FINAL REPORT Conversion of a nontunneled to tunneled dialysis catheter. History: Renal failure. Modality: Fluoroscopy. Sedation: Moderate sedation was administered. 0.5 mg of Versed and 50 mcg of fentanyl IV was used for moder ate sedation monitored under my direction. Total intra-service time of sedation was 30 minutes. The patient's vital signs were monitored throughout the procedure and recorded in the patient's medical record by the nurse. Carton Catcher: Regis Ortega MD. Document Image Technician: None. Approach: Right internal jugular vein Estimated blood loss: < 5 cc. Specimen: None. Fluoroscopy Time: 0.5 min. Dose (Ka,r): 6.0 mGy. Technique: Informed written consent was obtained. Discussion of risks, benefits, and alternatives were made with the patient. The patient expressed understanding and agreed to proceed. All elements maximal sterile barrier technique was utilized for this procedure, including utilization of sterile scrub solution for skin prep, a large sterile sheet to cover the areas of the patient that were not prepped, and hand hygiene, mask, head covering, and sterile gown for performing radiologist and scrub technologist. The skin was anesthetized with 2% lidocaine. A 0.35 inch diameter guidewire was inserted through the existing nontunneled dialysis catheter into the IVC. A subcutaneous tunnel was created in the right anterior chest wall by blunt dissection. A 19 cm right Kazakh Duraflow 2 catheter was brought through the tunnel. The existing nontunneled hemodialysis catheter was then removed over the guidewire. A peel-away sheath was placed in the right IJ vein and the catheter was advanced through the sheath, with its distal tip terminating in the right atrium. The peel-away sheath was removed. The ports were flushed and aspirated easily following placement. The catheter was sutured to the skin with 2-0 proline to secure its placement. A resorbable pursestring sutures placed at the catheter exit site. The small jugular incision site was closed using resorbable suture. Vital signs were monitored throughout the procedure by a nurse, and remained stable. The patient tolerated the procedure well and left the department in the same condition. Results: Spot radiograph of the chest demonstrates the new dialysis catheter to lie in the expected position with its tip overlying the superior right atrium. Impression: Successful, uncomplicated conversion of a nontunneled right internal jugular to a tunneled dialysis catheter. Signed: Regis Ortega MD Report Verified Date/Time: 11/15/2018 10:01:43 Reading Location: [facility] P048 Angio Body Reading Room Performing Organization Address City/State/Zipcode Ph one Number GE [facility]IS * XR chest 2 views (11/12/2018 9:38 PM CDT) Specimen Narrative Performed At FINAL REPORT [facility] Chest, two views. MEDICAL HISTORY: Cough. COMPARISON STUDY: November 05, 2018. FINDINGS: The cardiac silhouette is unr emarkable. There are bilateral mild increased interstitial markings. A right-sided central line is noted. There is no pleural effusion or pneumothorax. Degenerative changes are seen. IMPRESSION: Mild interstitial pulmonary markings. This may represent mild volume overload. Signed: Ainsley Sloan MD Report Verified Date/Time: 9 23:58:30 Reading Location: [address] Consult Reading Room Procedure Note Interface, External Ris In - 11/13/2018 12:00 AM CDT FINAL REPORT Chest, two views. MEDICAL HISTORY: Cough. COMPARISON STUDY: November 05, 2018. FINDINGS: The cardiac silhouette is unremarkable. There are bilateral mild increased interstitial markings. A right-sided central line is noted. There is no pleural effusion or pneumothorax. Degenerative changes are seen. IMPRESSION: Mild interstitial pulmonary markings. This may represent mild volume overload. Signed: Ainsley Sloan MD Report Verified Date/Time: 11/12/2018 23:58:30 Reading Location: [address] Consult Reading Room Performing Organization Address City/[facility] [address] [facility] Ph one Number RIS * Protein, random urine (11/12/2018 1:55 AM CDT) Protein, Urine 122 (H) 0 - 14 mg/dL [facility] Specimen Urine Performing Organization Address City/[facility] [address]/[facility] Ph one Number [place] [address] [facility] * Creatinine, random urine (11/12/2018 1:55 AM CDT) Only the most recent of 2 results within the time period is included. Creatinine, Ur 225.8 mg/dL [facility] Specimen Urine Narrative Performed At Reference Range: No Normals [facility] Performing Organization Address City/State/Zipcode Ph one Number [facility] [address] [place], [place] [address] MEDICAL CENTER * REPORT OF PROCEDURE - ENDOSCOPY URL (11/10/2018 2:04 PM CDT) Narrative Performed At This result has an attachment that is n ot available. * Tissue Exam (11/10/2018 1:25 PM CDT) Only the most recent of 2 results within the time period is included. Case Report Surgical Pathology [facility] TH Report [facility] Case: [id number] Authorizing Provider:Devyn Lantigua MDCollected: 11/10/2018 1325 Ordering Location: [address] Received: 11/11/2018 0818 Service Pathologist: Be Arenas MD Specimens: A) - Polyp, Colon - Sigmoid, sigmoid polyp bx B) - Cecum, cecum ulcer bx ADDENDUM Immunostains for HSV1, HSV2, [facility] and CMV performed on [address] are negative. DIAGNOSIS PART A SIGMOID COLON POLYP, [facility] POLYPECTOMY: [facility] HYPERPLASTIC POLYP. PART B CECUM BIOPSY FOR SUSPECTED ULCER: NONSPECIFIC ACTIVE COLITIS WITH ULCERATION AND REGENERATIVE FEATURES. NEGATIVE FOR GRANULOMAS, DYSPLASIA, OR INVASIVE CARCINOMA. NO MORPHOLOGIC OR IMMUNOPHENOTYPIC EVIDENCE OF LYMPHOMA. SEE DIAGNOSTIC COMMENT. IMMUNOSTAINS FOR VIRAL MARKERS PENDING, ADDENDUM TO FOLLOW. Signing Pathologist Direct Phone Line: [phone] COMMENT PART B: Immunohistochemical [facility] studies performed on [address] demonstrate the lymphoid population to be positive for CD20 positive B cells and CD3/CD5 positive T cells. There is no aberrant co-expression of CD20 and CD5. Cyclin D1 is negative. There is no morphologic or immunophenotypic evidence of lymphoma. CPT Code(s) 95026i6, 48854, 32751i7 [facility] CLINICAL HISTORY Colon polyps [facility] SPECIMEN SOURCE A. Sigmoid polyp biopsy. B. [facility] Cecum ulcer biopsy [facility] GROSS DESCRIPTION Part A. Received in formalin [facility] labeled with the patient's [facility] name, accession number and "polyp, colon-sigmoid" is a 0.2 cm guajardo soft tissue fragment, which is submitted in toto in A1. Part B. Received in formalin labeled with the patient's name, accession number and "cecum" are four irregular guajardo soft tissue fragments ranging 0.1-0.2 cm, which are submitted in toto in B1. CG/ew MICROSCOPIC DESCRIPTION Performed. [facility] SPECIAL STUDIES The interpretation of this [facility] case included the use of [facility] immunohistochemistry or special stains. BLOCK B1- HSV1, HSV2, CMV, CD20, CD3, CD5, CYCLIN D1 Control Slides Examined: In-house known positive controls were evaluated along with the test tissue. These control slides run alongside of the patients sample show appropriate staining. Internal positive and negative controls when available are evaluated Immunohistochemistry technical testing was performed at [facility] where it was developed and its performance characteristics were determined. It has not been cleared or approved by the U.S. Food and Drug Administration. The FDA has determined that such clearance or approval is not necessary. The test is used for clinical purposes. It should not be regarded as investigational or for research. This laboratory is certified under the Clinical Laboratory Improvement Amendments of 1988 (CLIA-88) as qualified to perform high complexity clinical laboratory testing. Specimen Tissue - Polyp, Colon - Sigmoid Tissue - Cecum structure (body structure) Performing Organization Address City/State/Zipcode Ph one Number [facility] [address] [place] [address] MEDICAL CENTER * HEMODIALYSIS INPATIENT (11/09/2018 3:25 PM CDT) Narrative Performed At Melissa Lo RN 11/09/2018 4:53 PM Procedure fairly tolerated. Received Ma nnitol 12.5 gms. X 1 dose to support blood pressure. Vital signs maintained within desired parameter during the procedure. HD duration4 hoursUF 1.7 L via right IJ non-tunneled HD catheter. Lab Results Component Value Date WBC 24.5 (H) 11/09/2018 HGB 8.3 (L) 11/09/2018 HCT 24.2 (L) 11/09/2018 MCV 100.0 (H) 11/09/2018 PLT 74 (L) 11/09/2018 Lab Results Component Value Date GLUCOSE 140 (H) 11/09/2018 CALCIUM 9.2 11/09/2018 NA 137 11/09/2018 K 4.1 11/09/2018 CO2 25 11/09/2018 CL 101 11/09/2018 BUN 24 (H) 11/09/2018 CREATININE 2.18 (H) 11/09/2018 No components found for: HEPSAG Vitals: 11/09/18 1617 BP: 103/58 Pulse: 95 Resp: 20 Temp: 98.3 F (36.8 C) SpO2: 95% * YARI ANTIGEN TITER (11/08/2018 4:20 AM CDT) Yari Antigen Titer 1:2 [facility] Specimen Blood Performing Organization Address [facility] Ph one Number [address] [facility] * Yari antigen with reflex to titer (11/08/2018 4:20 AM CDT) Yari Antigen Positive [facility] Specimen Blood Performing Organization Address City/[facility] Ph one Number [address] [facility] * CT chest with high resolution/ild (11/08/2018 12:16 AM CDT) Specimen Narrative Performed At FINAL REPORT [facility] CT of the chest, without contrast Clinical History:liver transplant e valuation liver transplant evaluation.s/p nicola s Technique: CT of the chest is performed without intravenous contrast administration. This exam was performed according to our departmental dose optimization program which include s automated exposure control, adjustment of the mA and/or kV accordin g to patient's size and/or use of iterative reconstructive technique. High resolution images of the lung are obtained during inspiration an d expiration, in both supine and prone positions.Some opacities may be peribronchial vascular distribution. There is no pleural effus ion. Mild degree of air trapping are seen in the lower lungs on expiratory images. No evidence of honeycombing. Comparison Film:June 09, 2018 Discussion: Visualized thyroid gland is normal. No supraclavicular, axillary, mediastinal or hilar lymphadenopathy. H eart and pericardium are unremarkable. There are patchy small foci of airspace opacities in both lungs, primarily groundglass in the upper lung s. Previously seen consolidative opacities in both lower l obes have significantly decreased. Some opacities may be peribr onchial vascular distribution. No pleural effusion. No bronchiectasis, or bronchial wall thickening. There is mild degree of air trapping in the lower lungs. No evidence of honeycombing. Liver appears cirrhotic. Spleen is enla rged. There is a small amount of ascites in the upper abdomen. Osseou s structures demonstrate no suspicious findings. Impression: Small, patchy foci of airspace opacitie s in both lungs, overall significantly improved compared to Apri l 2018. Given history of ARDS, these findings likely reflect a r esolving or organizing process, although cannot entirely exclu de superimposed atypical infection, inflammation or drug reactio n. Cirrhosis and splenomegaly. Small amoun t of ascites Signed: Alan Rodriguez MD Report Verified Date/Time: 9 11:29:31 Reading Location: [facility] C013X Kumbuya nsult Reading Room Procedure Note Interface, External Ris In - 11/08/2018 11:31 AM CDT FINAL REPORT CT of the chest, without contrast Clinical History: liver transplant evaluation liver transplant evaluation. s/p ards Technique: CT of the chest is performed without intravenous contrast administration. This exam was performed according to our departmental dose optimization program which includes automated exposure control, adjustment of the mA and/or kV according to patient's size and/or use of iterative reconstructive technique. High resolution images of the lung are obtained during inspiration and expiration, in both supine and prone positions. Some opacities may be peribronchial vascular distribution. There is no pleural effusion. Mild degree of air trapping are seen in the lower lungs on expiratory images. No evidence of honeycombing. Comparison Film: June 09, 2018 Discussion: Visualized thyroid gland is normal. No supraclavicular, axillary, mediastinal or hilar lymphadenopathy. Heart and pericardium are unremarkable. There are patchy small foci of airspace opacities in both lungs, primarily groundglass in the upper lungs. Previously seen consolidative opacities in both lower lobes have significantly decreased. Some opacities may be peribronchial vascular distribution. No pleural effusion. No bronchiectasis, or bronchial wall thickening. There is mild degree of air trapping in the lower lungs. No evidence of honeycombing. Liver appears cirrhotic. Spleen is enlarged. There is a small amount of ascites in the upper abdomen. Osseous structures demonstrate no suspicious findings. Impression: Small, patchy foci of airspace opacities in both lungs, overall significantly improved compared to June 14, 2018. Given history of ARDS, these findings likely reflect a resolving or organizing process, although cannot entirely exclude superimposed atypical infection, inflammation or drug reaction. Cirrhosis and splenomegaly. Small amount of ascites Signed: Alan Rodriguez MD Report Verified Date/Time: 11/08/2018 11:29:31 Reading Location: [facility] C013X Ortho Consult Reading Room Performing Organization Address City/State/Zipcode Ph one Number GE RIS * Urinalysis w/Microscopic (11/05/2018 8:47 PM CDT) Color, UA Dark Yellow [facility] Clarity, UA Clear [facility] Specific [place], UA 1.012 1.001 - 1.035 [facility] pH, UA 6.0 5.0 - 8.0 [facility] Protein, UA 20 mg/dL (A) Negative [facility] Glucose, UA Negative Negative [facility] Ketones, UA Negative Negative [facility] Bilirubin, UA Positive (A) Negative [facility] Blood, UA Negative Negative [facility] Nitrite, UA Negative Negative [facility] Leukocytes, UA Negative Negative [facility] Urobilinogen, UA 3.0 (H) 0.2 - 1.0 mg/dL [facility] RBC, UA 0 /HPF [facility] WBC, UA 1 /HPF [facility] Bacteria, UA Occasional [facility] Mucus Rare [facility] Specimen Source Urine, Clean Catch [facility] Specimen Urine Performing Organization Address [facility] Ph one Number [address] [phone] [place] [address] * Hepatitis B core antibody, total (11/05/2018 3:32 PM CDT) Hep B Core Total Ab Nonreactive Nonreactive [facility] Specimen Blood Performing Organization Address [facility] Ph one [address] 0 [phone] [place] [address] * Hepatitis B surface antibody (11/05/2018 3:32 PM CDT) Hep B S Ab <8.0 <8.0 mIU/mL [facility] Specimen Blood Performing Organization Address [facility] one [address] 0 [phone] [place] [address] * IR non-tunneled dialysis catheter insertion (11/05/2018 12:10 PM CDT) Specimen Narrative Performed At FINAL REPORT [facility] PROCEDURE: Non-tunneled dialysis cathet er placement Procedural Personnel Attending physician(s): Mi Chiang MD Fellow physician(s): Avery Vasquez MD Resident physician(s): Dion Way MD Advanced practice provider(s): None Pre-procedure diagnosis: Acute kidney i njury Post-procedure diagnosis: Same Indication: Performance of hemodialysis Additional clinical history: None Complications: No immediate complicatio ns. IMPRESSION: Insertion of right-sided non-tunneled d ual-lumen temporary dialysis catheter, with tip in the expected loca tion of the cavoatrial junction. Plan: The catheter may be used immediately. PROCEDURE SUMMARY: - Venous access with ultrasound guidanc e - Non-tunneled central venous catheter insertion with fluoroscopic guidance - Additional procedure(s): None PROCEDURE DETAILS: Pre-procedure Consent: Informed consent for the proce dure including risks, benefits and alternatives was obtained and time- out was performed prior to the procedure. Preparation (MIPS): The site was prepar ed and draped using all elements of maximal sterile barrier valerie hnique including sterile gloves, sterile gown, cap, mask, large sterile sheet, sterile ultrasound probe cover, hand hygiene an d cutaneous antisepsis with 2% chlorhexidine. Medical reason for site preparation exc eption (MIPS): Not applicable Anesthesia/sedation Level of anesthesia/sedation: No sedati on Anesthesia/sedation administered by: In dependent trained observer under attending supervision with contin uous monitoring of the patient\\X2019\\s level of consciousness and physiologic status Access Local anesthesia was administered. The vessel was sonographically evaluated and determined to be patent. Real time ultrasound was used to visualize needle entry into the vess el and a permanent image was stored. Vein accessed: Internal jugular vein Access technique: Micropuncture set wit h 21 gauge needle Catheter placement The access site was dilated and the cat heter was placed into the vein over a wireunder fluoroscopic good nce.The catheter tip location was fluoroscopically verified and a per manent image was stored.. A sterile dressing was applied. Catheter placed: Schon XL Catheter size (Kazakh): 14 Catheter length (cm): 15 Catheter flush: Heparin (1000 units/mL) Catheter securement technique: Non-abso rbable suture Contrast Contrast agent: None Radiation Dose Fluoroscopy time (minutes): 1.6 Reference air kerma (mGy): 9.9 Additional Details Additional description of procedure: No ne Equipment details: None Specimens removed: None Estimated blood loss (mL): Less than 10 Standardized report: [id number] Attestation Signer name: Mi Chiang I attest that I was present for the ent allyn procedure. I reviewed the stored images and agree with the report as written. Signed: Mi Chiang MD Report Verified Date/Time: 9 19:49:40 Reading Location: [facility] B1 P048 Angio Bod y Reading Room Procedure Note Interface, External Ris In - 11/05/2018 7:51 PM CDT FINAL REPORT PROCEDURE: Non-tunneled dialysis catheter placement Procedural Personnel Attending physician(s): Mi Chiang MD Fellow physician(s): Avery Vasquez MD Resident physician(s): Dion Way MD Advanced practice provider(s): None Pre-procedure diagnosis: Acute kidney injury Post-procedure diagnosis: Same Indication: Performance of hemodialysis Additional clinical history: None Complications: No immediate complications. IMPRESSION: Insertion of right-sided non-tunneled dual-lumen temporary dialysis catheter, with tip in the expected location of the cavoatrial junction. Plan: The catheter may be used immediately. PROCEDURE SUMMARY: - Venous access with ultrasound guidance - Non-tunneled central venous catheter i nsertion with fluoroscopic guidance - Additional procedure(s): None PROCEDURE DETAILS: Pre-procedure Consent: Informed consent for the procedure including risks, benefits and alternatives was obtained and time-out was performed prior to the procedure. Preparation (MIPS): The site was prepared and draped using all elements of maximal sterile barrier technique including sterile gloves, sterile gown, cap, mask, large sterile sheet, sterile ultrasound probe cover, hand hygiene and cutaneous antisepsis with 2% chlorhexidine. Medical reason for site preparation exception (MIPS): Not applicable Anesthesia/sedation Level of anesthesia/sedation: No sedation Anesthesia/sedation administered by: Independent trained observer under attending supervision with continuous monitoring of the patient\\X2019\\s level of consciousness and physiologic status Access Local anesthesia was administered. The vessel was sonographically evaluated and determined to be patent. Real time ultrasound was used to visualize needle entry into the vessel and a permanent image was stored. Vein accessed: Internal jugular vein Access technique: Micropuncture set with 21 gauge needle Catheter placement The access site was dilated and the catheter was placed into the vein over a wire under fluoroscopic guidance. The catheter tip location was fluoroscopically verified and a permanent image was stored.. A sterile dressing was applied. Catheter placed: Schon XL Catheter size (Kazakh): 14 Catheter length (cm): 15 Catheter flush: Heparin (1000 units/mL) Catheter securement technique: Non-absorbable suture Contrast Contrast agent: None Radiation Dose Fluoroscopy time (minutes): 1.6 Reference air kerma (mGy): 9.9 Additional Details Additional description of procedure: None Equipment details: None Specimens removed: None Estimated blood loss (mL): Less than 10 Standardized report: [id number] Attestation Signer name: Mi Chiang I attest that I was present for the entire procedure. I reviewed the stored images and agree with the report as written. Signed: Mi Chiang MD Report Verified Date/Time: 11/05/2018 19:49:40 Reading Location: [place] [address] Angio Body Reading Room Performing Organization Address [facility] one Number [facility] * Sodium, random urine (10/30/2018 8:42 PM CDT) Only the most recent of 2 results within the time period is included. Sodium Urine 34 meq/L [facility] Specimen Urine Narrative Performed At Reference Range: No Normals [facility] Performing Organization Address [facility] [address]/[facility] Ph one Number [facility] [address] [place] [address] MEDICAL CENTER * US paracentesis (10/27/2018 3:07 PM CDT) Specimen Narrative Performed At FINAL REPORT GE [facility] Paracentesis dated 10/27/2018 Procedure: Ultrasound-guided paracentes is. Preprocedure diagnosis: Ascites Postprocedure diagnosis: Ascites Conscious sedation: None. Radiologist: Keith Garcia M.D. Document Image Technician: None Anesthesia: 1% Xylocaine mixed with sod ium bicarbonate local anesthesia. Technique: After obtaining informed con sent, ultrasound-guided paracentesis was performed under usual sterile technique. Using a 5 trinidadian drainage catheter, puncture was made in the right lower quadrant abdomen. Approximately 2000 cc of clear yellowish fluid was removed. Patient tolerated the procedur e well without complication. Complication: None Graft/Implant: None Estimated Blood Loss: None Impression: Ultrasound-guided paracente sis. Signed: Keith Garcia MD Report Verified Date/Time: 9 16:58:17 Reading Location: [address] Body Reading Room Procedure Note Interface, External Ris In - 10/27/2018 5:00 PM CDT FINAL REPORT Paracentesis dated 10/27/2018 Procedure: Ultrasound-guided paracentesis. Preprocedure diagnosis: Ascites Postprocedure diagnosis: Ascites Conscious sedation: None. Radiologist: Keith Garcia M.D. Document Image Technician: None Anesthesia: 1% Xylocaine mixed with sodium bicarbonate local anesthesia. Technique: After obtaining informed consent, ultrasound-guided paracentesis was performed under usual sterile technique. Using a 5 trinidadian drainage catheter, puncture was made in the right lower quadrant abdomen. Approximately 2000 cc of clear yellowish fluid was removed. Patient tolerated the procedure well without complication. Complication: None Graft/Implant: None Estimated Blood Loss: None Impression: Ultrasound-guided paracentesis. Signed: Keith Garcia MD Report Verified Date/Time: 10/27/2018 16:58:17 Reading Location: [facility] C013Y CT Body Reading Room Performing Organization Address City/State/Zipcode Ph one Number GE RIS * Body fluid cell count with differential (10/27/2018 3:00 PM CDT) Appearance Slightly Hazy (A) Clear [facility] Color [place] (A) Colorless, Straw [facility] RBCs 309 (H) <=1 /cu mm [facility] Adjusted WBC Count 147 (H) <=5 /cu mm [facility] Lining Cells 54 (H) <=1 /cu mm [facility] % Segs 10 % [facility] % Lymphs 18 % [facility] % Monos 72 % [facility] % Eos 0 % [facility] % Baso 0 % [facility] Container Body Fluid EDTA Tube [facility] Specimen Body Fluid Performing Organization Address City/State/Zipcode Ph one Number [facility] [address] [place], [place] [address] [facility] * US abdomen limited (10/26/2018 4:21 AM CDT) Specimen Narrative Performed At FINAL REPORT [facility] ULTRASOUND ABDOMEN LIMITED HISTORY: Ascites, assess for volume of ascites COMPARISON: Ultrasound abdomen of 2018 TECHNIQUE: Ultrasound of the abdomen wa s limited to the evaluation of the volume of ascites. FINDINGS: There is mild ascites in the right uppe r quadrant, right lower quadrant, and midline in the abdomen. N o significant ascites in the left abdomen. Signed: Kirt Sheffield MD Report Verified Date/Time: 9 13:11:32 Reading Location: [address] Transiti onal Reading Room Procedure Note Interface, External Ris In - 10/26/2018 1:13 PM CDT FINAL REPORT ULTRASOUND ABDOMEN LIMITED HISTORY: Ascites, assess for volume of ascites COMPARISON: Ultrasound abdomen of 10/17/2018 TECHNIQUE: Ultrasound of the abdomen was limited to the evaluation of the volume of ascites. FINDINGS: There is mild ascites in the right upper quadrant, right lower quadrant, and midline in the abdomen. No significant ascites in the left abdomen. Signed: Kirt Sheffield MD Report Verified Date/Time: 10/26/2018 13:11:32 Reading Location: [address] Transitional Reading Room Performing Organization Address City/[facility] [address]/Zipcode Ph one Number GE RIS * Peripheral Blood Smear - Path Review (10/21/2018 5:01 AM CDT) RBC Morphology Polychromasia [facility] WBC Morphology Toxic Granulation [facility] Pathologist Review Cell counts confirmed. [facility] Pathologist: Samina Arteaga M.D. [facility] (electronic signature) [facility] Specimen Blood Performing Organization Address City/[facility] [address]/[facility] Ph one Number [place] [id number] [facility] * 2D Echo W/Doppler(CW/PW/Color) (10/20/2018 1:30 PM CDT) Ejection Fraction [facility] ECHO HEARTLAB [facility] Specimen Narrative Performed At Transthoracic Echocardiography Report (TTE) [facility] ECH O HEARTLAB Demographics [facility] Patient NameINDRA GALVAN Date of Study10/20/2018 YAN Daniel Gender Male Visit [id number] Race Unknown Room [id number] Number Date of 1980 ReferringMuaurea plummer Age 37 year(s) SonographerAbed LowellJosé Mata nMD Procedure Type of Study TTE procedure:2DECHO W DO PPLER(CW/PW/COLOR) (Routine) Indications:Known or suspected heart fa ilure. Clinical History HGB 8.1 HCT 24.0 % FATTY LIVER HTN OBESITY Contrast Medium: Definity. Amount - 2 m l Height: 72 inches Weight: 110.68 kg (24 4 lbs) BSA: 2.32 m^2 BMI: 33.09 kg/m^2 HR: 96 bpm BP: 113/61 mmHg Summary The left ventricle is chamber size (by vol index) is normal (male - LVED vol - 34-74ml/m2). Mild concentric LV h ypertrophy. All of the LV segments contract normally . LVEF by New's m ethod of disk assessment is normal (>60%) . Estimated peak systolic PA pressure is 30-35 mmHg . No pericardial effusion is visualized. Signature Findings Left Ventricle The left ventricle is chamber size (by vol index) is normal (male - LVED vol - 34-74ml/m2). Mild concentric LV hypertrophy. All of the LV segments contract normally . LVEF by New's method of disk assessment is normal (>60%) . Left AtriumLA s ize is mildly enlarged (35-41 ml/m2) . Right VentricleThe righ t ventricular chamber size and systolic function are within normal limits. Right Atrium RA siz e is normal. Aortic Valve Mild A oV cusp thickening. Mitral Valve Mild M V leaflet thickening. Trace mitral regurgitation. Tricuspid ValveTV struc ture is normal. A trace of tricuspid regurgitation. Estimated peak systolic PA pressure is 30-35 mmHg . Pulmonic Valve Normal P V structure and function by limited views and Doppler. Aorta Aortic root size (SInus of Valsalva diameter) is normal . PericardiumNo p ericardial effusion is visualized. IVC/SVC/PA/PV/PleuralThe estimated RA pressure by IVC dynamics indeterminate . Chambers/Structures Left Atrium LA Dimension: 4.5 cm LA Area: 26.78 cm^2 LA Volume: 94.87 ml LA Vol. Index: 41 ml/m^2 Left Ventricle LVIDd: 5.06 cm LVIDs: 3.91 cm LV Septum Diastolic: 1.4 cm LV PW Diastolic: 1.3 cm LV FS: 22.7 % LVEDV New's:178.87 ml LVESV New's:66.06 ml LVEDVI: 77 ml/m^2 LVEF New's: 63.1 % LVESVI: 28 ml/m^2 LVOT Diameter: 2.08 cm Aorta Ao Root S of Yasmin.: 3.02 cm Doppler/Quantitative Measurements LVOT Peak Velocity: 1.56 m/s Peak Gradient: 9.68 mmHg Mean Velocity: 0.93 m/s Mean Gradient: 4.22 mmHg LVOT Diameter: 2.08 cm LVOT VTI: 28.24 cm LVOT Area: 3.4 cm^2 LVOT SV:95.91 ml LVOT CO: 9.21 l/min LVOT CI: 3.97 l/min/m^2 Procedure Note Interface, External Ris In - 10/21/2018 8:44 AM CDT Transthoracic Echocardiography Report (TTE) Demographics Patient Name INDRA GALVAN Date of Study 10/20/2018 YAN CORDERO Gender Male Visit Number [id number] Race Unknown Room Number 743 Number Date of 1980 Referring Minal Taylor Physician Age 37 year(s) Perinatal Breastfeeding Assistant Wilmer Lowell Interpreting Physician MELVA Hanson Procedure Type of Study TTE procedure:2DECHO W DOPPLER(CW/PW/COLOR) (Routine) Indications:Known or suspected heart failure. Clinical History HGB 8.1 HCT 24.0 % FATTY LIVER HTN OBESITY Contrast Medium: Definity. Amount - 2 ml Height: 72 inches Weight: 110.68 kg (244 lbs) BSA: 2.32 m^2 BMI: 33.09 kg/m^2 HR: 96 bpm BP: 113/61 mmHg Summary The left ventricle is chamber size (by vol index) is normal (male - LVED vol - 34-74ml/m2). Mild concentric LV hypertrophy. All of the LV segments contract normally . LVEF by New's method of disk assessment is normal (>60%) . Estimated peak systolic PA pressure is 30-35 mmHg . No pericardial effusion is visualized. Signature Findings Left Ventricle The left ventricle is chamber size (by vol index) is normal (male - LVED vol - 34-74ml/m2). Mild concentric LV hypertrophy. All of the LV segments contract normally . LVEF by New's method of disk assessment is normal (>60%) . Left Atrium LA size is mildly enlarged (35-41 ml/m2) . Right Ventricle The right ventricular chamber size and systolic function are within normal limits. Right Atrium RA size is normal. Aortic Valve Mild AoV cusp thickening. Mitral Valve Mild MV leaflet thickening. Trace mitral regurgitation. Tricuspid Valve TV structure is normal. A trace of tricuspid regurgitation. Estimated peak systolic PA pressure is 30-35 mmHg . Pulmonic Valve Normal PV structure and function by limited views and Doppler. Aorta Aortic root size (SInus of Valsalva diameter) is normal . Pericardium No pericardial effusion is visualized. IVC/SVC/PA/PV/Pleural The estimated RA pressure by IVC dynamics indeterminate . Chambers/Structures Left Atrium LA Dimension: 4.5 cm LA Area: 26.78 cm^2 LA Volume: 94.87 ml LA Vol. Index: 41 ml/m^2 Left Ventricle LVIDd: 5.06 cm LVIDs: 3.91 cm LV Septum Diastolic: 1.4 cm LV PW Diastolic: 1.3 cm LV FS: 22.7 % LVEDV New's:178.87 ml LVESV New's:66.06 ml LVEDVI: 77 ml/m^2 LVEF New's: 63.1 % LVESVI: 28 ml/m^2 LVOT Diameter: 2.08 cm Aorta Ao Root S of Yasmin.: 3.02 cm Doppler/Quantitative Measurements LVOT Peak Velocity: 1.56 m/s Peak Gradient: 9.68 mmHg Mean Velocity: 0.93 m/s Mean Gradient: 4.22 mmHg LVOT Diameter: 2.08 cm LVOT VTI: 28.24 cm LVOT Area: 3.4 cm^2 LVOT SV:95.91 ml LVOT CO: 9.21 l/min LVOT CI: 3.97 l/min/m^2 Performing Organization Address City/[facility] [address]/[facility] Ph one Number SLE ECHO HEARTLAB [facility] CPACS * REPORT OF PROCEDURE - ENDOSCOPY URL (10/19/2018 11:05 AM CDT) Narrative Performed At This result has an attachment that is n ot available. * REPORT OF PROCEDURE - ENDOSCOPY URL (10/19/2018 9:17 AM CDT) Narrative Performed At This result has an attachment that is n ot available. * Urea Nitrogen, random urine (10/18/2018 6:43 PM CDT) Urea Nitrogen, Ur 120 mg/dL [facility] Specimen Urine Narrative Performed At Reference Range: No Normals [facility] Performing Organization Address City/[facility] Ph one Number [place] [address] MEDICAL CENTER * US doppler (10/17/2018 5:12 PM CDT) Specimen Narrative Performed At FINAL REPORT [facility] Ultrasound of the Abdomen and Duplex Do ppler. TECHNIQUE: Sonographic assessment of th e abdomen was performed as well as a detailed duplex Doppler asses sment of the liver including spectral wave forms and color-flow anal ysis of the major vascular structures. Clinical History: elevated liver enzyme s, hyperbilirubinemia, history of fatty liver. Comparison study: CTA dated June 25 and ultrasound dated June 23, 2018. Findings: The liver is markedly echogen ic in nature limiting assessment. It measures 26.4 cm in bernabe th, significantly enlarged. There is no evidence of intrahepatic bi liary dilatation. The CBD is not seen. The main portal vein diameter is 1.5 cm. Cholelithiasis is seen with no sonographic evidence of [place] cholecystitis. The spleen measures 14.6 cm, enlarged. The pancreas is obscured from view. Minimal ascites is present. The right kidney measures 11.4 cm and l eft kidney measures 12.3 cm, both within normal limits.No pleura l effusions are seen.The proximal aorta and IVC are unremarkable . Doppler interrogation of the liver demo nstrates a main portal vein diameter measuring 1.5 cm with a peak s ystolic velocity of 24 cm/sec. Hepatopetal inflow is seen in the right , left, main portal and splenic veins. The resistive indices in the proper, ri ght and left hepatic arteries are 0.7, 0.6 and 0.7 respectively. Outflow with appropriate directionality is seen in the IVC, middle and left hepatic veins. The hepatic giulia ous confluence and right hepatic vein are not seen. Impression: 1. Echogenic, enlarged liver consistent with fatty infiltration. No masses are seen but assessment is diffi cult due to the increased echogenicity. 2. Splenomegaly. 3. Unremarkable hepatic Doppler. Howeve r, several vessels are not well seen. 4. CBD not seen but no intrahepatic cassidy iary dilatation. 5. Pancreas obscured from view. Signed: Ainsley Sloan MD Report Verified Date/Time: 9 17:43:28 Reading Location: [address] Consult Reading Room Procedure Note Interface, External Ris In - 10/17/2018 5:45 PM CDT FINAL REPORT Ultrasound of the Abdomen and Duplex Doppler. TECHNIQUE: Sonographic assessment of the abdomen was performed as well as a detailed duplex Doppler assessment of the liver including spectral wave forms and color-flow analysis of the major vascular structures. Clinical History: elevated liver enzymes, hyperbilirubinemia, history of fatty liver. Comparison study: CTA dated June 25, 2018 and ultrasound dated June 23, 2018. Findings: The liver is markedly echogenic in nature limiting assessment. It measures 26.4 cm in length, significantly enlarged. There is no evidence of intrahepatic biliary dilatation. The CBD is not seen. The main portal vein diameter is 1.5 cm. Cholelithiasis is seen with no sonographic evidence of acute cholecystitis. The spleen measures 14.6 cm, enlarged. The pancreas is obscured from view. Minimal ascites is present. The right kidney measures 11.4 cm and left kidney measures 12.3 cm, both within normal limits. No pleural effusions are seen. The proximal aorta and IVC are unremarkable. Doppler interrogation of the liver demonstrates a main portal vein diameter measuring 1.5 cm with a peak systolic velocity of 24 cm/sec. Hepatopetal inflow is seen in the right, left, main portal and splenic veins. The resistive indices in the proper, right and left hepatic arteries are 0.7, 0.6 and 0.7 respectively. Outflow with appropriate directionality is seen in the IVC, middle and left hepatic veins. The hepatic venous confluence and right hepatic vein are not seen. Impression: 1. Echogenic, enlarged liver consistent with fatty infiltration. No masses are seen but assessment is difficult due to the increased echogenicity. 2. Splenomegaly. 3. Unremarkable hepatic Doppler. However , several vessels are not well seen. 4. CBD not seen but no intrahepatic bili una dilatation. 5. Pancreas obscured from view. Signed: Ainsley Sloan MD Report Verified Date/Time: 10/17/2018 17:43:28 Reading Location: [facility] C013W Consult Reading Room Performing Organization Address City/State/Zipcode Ph one Number [facility] * US abdomen complete (10/17/2018 5:12 PM CDT) Specimen Narrative Performed At FINAL REPORT [facility] Ultrasound of the Abdomen and Duplex Do ppler. TECHNIQUE: Sonographic assessment of th e abdomen was performed as well as a detailed duplex Doppler asses sment of the liver including spectral wave forms and color-flow anal ysis of the major vascular structures. Clinical History: elevated liver enzyme s, hyperbilirubinemia, history of fatty liver. Comparison study: CTA dated June 25 and ultrasound dated June 23, 2018. Findings: The liver is markedly echogen ic in nature limiting assessment. It measures 26.4 cm in bernabe th, significantly enlarged. There is no evidence of intrahepatic bi liary dilatation. The CBD is not seen. The main portal vein diameter is 1.5 cm. Cholelithiasis is seen with no sonographic evidence of ac [place] cholecystitis. The spleen measures 14.6 cm, enlarged. The pancreas is obscured from view. Minimal ascites is present. The right kidney measures 11.4 cm and l eft kidney measures 12.3 cm, both within normal limits.No pleura l effusions are seen.The proximal aorta and IVC are unremarkable . Doppler interrogation of the liver demo nstrates a main portal vein diameter measuring 1.5 cm with a peak s ystolic velocity of 24 cm/sec. Hepatopetal inflow is seen in the right , left, main portal and splenic veins. The resistive indices in the proper, ri ght and left hepatic arteries are 0.7, 0.6 and 0.7 respectively. Outflow with appropriate directionality is seen in the IVC, middle and left hepatic veins. The hepatic giulia ous confluence and right hepatic vein are not seen. Impression: 1. Echogenic, enlarged liver consistent with fatty infiltration. No masses are seen but assessment is diffi cult due to the increased echogenicity. 2. Splenomegaly. 3. Unremarkable hepatic Doppler. Howeve r, several vessels are not well seen. 4. CBD not seen but no intrahepatic cassidy iary dilatation. 5. Pancreas obscured from view. Signed: Ainsley Sloan MD Report Verified Date/Time: 9 17:43:28 Reading Location: [address] Consult Reading Room Procedure Note Interface, External Ris In - 10/17/2018 5:45 PM CDT FINAL REPORT Ultrasound of the Abdomen and Duplex Doppler. TECHNIQUE: Sonographic assessment of the abdomen was performed as well as a detailed duplex Doppler assessment of the liver including spectral wave forms and color-flow analysis of the major vascular structures. Clinical History: elevated liver enzymes, hyperbilirubinemia, history of fatty liver. Comparison study: CTA dated June 25, 2018 and ultrasound dated June 23, 2018. Findings: The liver is markedly echogenic in nature limiting assessment. It measures 26.4 cm in length, significantly enlarged. There is no evidence of intrahepatic biliary dilatation. The CBD is not seen. The main portal vein diameter is 1.5 cm. Cholelithiasis is seen with no sonographic evidence of acute cholecystitis. The spleen measures 14.6 cm, enlarged. The pancreas is obscured from view. Minimal ascites is present. The right kidney measures 11.4 cm and left kidney measures 12.3 cm, both within normal limits. No pleural effusions are seen. The proximal aorta and IVC are unremarkable. Doppler interrogation of the liver demonstrates a main portal vein diameter measuring 1.5 cm with a peak systolic velocity of 24 cm/sec. Hepatopetal inflow is seen in the right, left, main portal and splenic veins. The resistive indices in the proper, right and left hepatic arteries are 0.7, 0.6 and 0.7 respectively. Outflow with appropriate directionality is seen in the IVC, middle and left hepatic veins. The hepatic venous confluence and right hepatic vein are not seen. Impression: 1. Echogenic, enlarged liver consistent with fatty infiltration. No masses are seen but assessment is difficult due to the increased echogenicity. 2. Splenomegaly. 3. Unremarkable hepatic Doppler. However , several vessels are not well seen. 4. CBD not seen but no intrahepatic bili una dilatation. 5. Pancreas obscured from view. Signed: Ainsley Sloan MD Report Verified Date/Time: 10/17/2018 17:43:28 Reading Location: [facility] C013W Consult Reading Room Performing Organization Address City/[facility] [address] [facility]/Zipcode Ph one Number GE RIS * Creatine Kinase (CK) (10/16/2018 11:29 PM CDT) Total CK 29 29 - 200 U/L [facility] Specimen Blood Performing Organization Address City/[facility] [address]/Zipcode Ph one Number [address] [facility] after 09/25/2018 Insurance Payer Benefit Subscriber ID Type Phone Address Plan / Group [id number] [employer] BC[employer] PPO xxxxxxxxxxxx PPO [address] [place] [address] CHOICE [phone] [address] [address] amily (Home) [place] [address] Advance Directives For more information, please contact: [address] [address] Date Inactivated Comments Code Status Date Activated 05/10/2019 10:08 PM Full Code 05/04/2019 6:19 PM This code status was determined by: Patient 01/19/2019 9:28 AM Full Code 01/17/2019 3:31 PM This code status was determined by: Patient 01/06/2019 11:44 AM Full Code 01/03/2019 11:09 PM This code status was determined by: Patient 12/26/2018 1:04 PM Full Code 12/21/2018 2:15 AM This code status was determined by: Patient 11/16/2018 7:52 AM Full Code 10/16/2018 10:00 PM This code status was determined by: Patient
--- OUTSIDE RECORDS SUMMARY | 2019-09-26 21:10 | XMS REPORT | Clinical Summary ---
Author Author [facility] Organization [facility] Address Unknown Phone Unavailable Care Team Providers Care Director Of Speech Pathology Name Role Phone PCP Unavailable Allergies No Known Allergies Medications No known medications Active Problems Problem Noted Date Sinus tachycardia 01/28/2018 Hypertension 01/28/2018 Prediabetes 01/28/2018 Alcoholic hepatitis without ascites Acute kidney injury Encounters Care Team Description Date Type Specialty Dannie Tinoco MD No Show 09/02/2019 Hospital Radiology Encounter after 09/25/2018 Family History Medical History Relation Name Comments Hypertension Father Hypertension Mother Relation Name Status Comments Brother Alive Father Mother Alive Social History Date Tobacco Use Types Packs/Day Years Used Never Smoker Smokeless Tobacco: Never Used Drinks/Week oz/Week Comments Alcohol Use 3 Shots of liquor 3.0 last drink Sunday: 4 vodka s hots; 3-4 drinks a night Yes Sex Assigned at Date Recorded Not on file Industry Job Start Date Occupation Not on file Not on file Not on file Travel End Travel History Travel Start No recent travel history available. Last Filed Vital Signs Not on file Plan of Treatment Health Maintenance Due Date Last Done Comments IMM Influenza Seasonal 11/27/2019Nov to April (>/= 19 yrs) Results Not on fileafter 09/25/2018 Insurance Type Payer Benefit Subscriber ID Effective Phone Address Plan / Dates Group BC/BS BC/BS PPO xxxxxxxxxxxx 2017-P [phone] [id number] [place] [phone] Advance Directives Date Inactivated Comments Code Status Date Activated 01/28/2018 3:20 PM Full Code 01/24/2018 10:54 PM
--- OUTSIDE RECORDS SUMMARY | 2019-09-26 21:16 | XMS REPORT | Continuity of Care Document ---
Author Author [facility] t Organization [facility] t Address [address] [place] [address] Phone Unavailable Care Team Providers Care Electronic Prepress Operator Name Role Phone JOSE VOSS PCP KHLOE BOX Attphys Unavailable Earnest FRYE, Trudi Pandey Attphys Anastacio Killian Attphys Unavailable Jose Alejandro DOOR CAPTAIN, Michael Attphys Unavailable Anaya MURPHY, Kin Radford Attphys Unavailable Carlos A FRYE MPH, Laura Merchant Attphys [phone] Dorothy Boss Attphys Unavailable Elton SMITH, Katie Attphys Unavailable Laura Schwartz Attphys Unavailable Tim MURPHY, Brnanon Mccartney Attphys Unavailable Steven DOOR CAPTAIN, Laine Carreon Attphys Unavailable George RN, Emily Attphys Unavailable Mabel MURPHY, Nay Attphys Unavailable Sanjana De Leon MD Attphys Danii Lantigua MD Attphys DANII LANTIGUA Attphys Unavailable Sea SMITH, Abby Attphys Unavailable Marissa Mixon Attphys Unavailable Ady MURPHY, Katie Attphys Unavailable Silvano MURPHY, Delores Attphys Unavailable Anthony HOIST OPERATOR, [place] Abel Attphys Kenisha Gordillo Attphys Unavailable Darvin WICK, Charmaine Howe Attphys Lj FRYE, Iman Geronimo Attphys Malou FRYE, Erin Mir Attphys Elsie FRYE, Robina Cummins Attphys [phone] Connie Christensen Attphys Unavailable Eduardo FRYE, Robbie Attphys Dea FRYE, Karey Mcmahan Attphys Sheikh MELVA, Melisa Lamb Attphys Ede RN, Radha Attphys Unavailable IMAN CALHOUN Attphys Unavailable Juan Antonio RN, Servando Attphys Unavailable Alvarze RN, Xu Attphys Unavailable Jere RN, Martha Attphys Unavailable Joel FRYE, Gracie Rosamaria Attphys Laura Emery Attphys Unavailable Gracie MALDONADO ROSAMARIA Attphys Unavailable System, Not In Provider Attphys Unavailable Jaime FRYE, Hiwot Tinoco Attphys Corine FRYE, Melisa Belcher Attphys Eliceo FRYE, Lorna Rayo Attphys Hiwot JOHNSON Attphys Unavailable Kendal FRYE, [facility] Attphys [phone] OZIEL VALDEZ Attphys Unavailable José Miguel FRYE, Oziel Christie Attphys [phone] Reggie FRYE, Yasmin Fermin Attphys Kenisha Rojas Attphys Unavailable VENTURA BREEN Attphys Unavailable Julia FRYE, [place] Renee Attphys Zenon Taylor MD Attphys [phone] Evelina FRYE, Audie Attphys Caden FRYE, Melisa Attphys Hemalatha Alfredo Attphys Unavailable ZAINAB, ZENON KAUFMAN Attphys Unavailable Kurt FRYE, Coreen Flanagan Attphys Kin Cavazos Attphys Unavailable Samina Silva CRNA Attphys [phone] Jose FRYE, Vinay Juan Attphys Chaim FRYE, Jazzmine Estrella Attphys [phone] Isak FRYE, Genna Begum Attphys Anton DUQUEICA Attphys Unavailable MANKIINDRA ARAUJO Attphys Unavailable BOCCARDO, KIET Attphys Unavailable KHLOE BOX Admphys Unavailable ERIN MEADOWS Admphys Unavailable KHADERI, LORNA WILFRED Admphys Unavailable Yasmin PAREDES Admphys Unavailable OMRANIAN, ALI Admphys Unavailable ZAINAB, ZENON KAUFMAN Admphys Unavailable MANKIDY, INDRA BABITH Admphys Unavailable BOCCARDO, KIET Admphys Unavailable Payers Payer Name Policy Type Policy Number Effective Date Expiration Date S gideon BC/BSBC/BS [id number]-[id number] [id number] [address] xxxxxxxxxxxx 2017 00:00:00 [facility] PPO POS EPO C [id number] [address], [place] [address] xxxxxxxxxxxx [facility] Ppo [id number] 2018 00:00:[address] [facility] [place] [place] Problems Condition Name Condition Details Condition Category Status Onset Date Resolution Date Last Treatment Date Treating Clinician Comments Source Sepsis Sepsis Disease Active 2019-05-04 00:00:00 [facility] Symptomatic anemia Symptomatic anemia Disease Active 2019-01-17 00:00:0 0 [facility] Tubular adenoma Tubular adenoma Disease Active 2019-01-17 00:00:00 [facility] Rash Rash Disease Active 2019-01-17 00:00:00 [facility] Screening for cancer Screening for cancer Disease Active 00:00:00 [facility] Alcohol use disorder, mild, abuse Alcohol use disorder, mild, ab use Disease Active 2019-01-17 00:00:00 [facility] Pedal edema Pedal edema Disease Active 2019-01-17 00:00:00 [facility] Hepatic encephalopathy Hepatic encephalopathy Disease Active 2019-01-17 00:00:00 [facility] Alcoholic hepatitis Alcoholic hepatitis Disease Active 2019-01-17 00:00 :00 [facility] Alcoholic cirrhosis Alcoholic cirrhosis Disease Active 2018-12-21 00[facility]00 [facility] Sepsis, unspecified organism Sepsis, unspecified organism Disease Active 2018-12-21 00:00:00 [facility] ESRD (end stage renal disease) ESRD (end stage renal disease) Disea se Active 2018-12-21 00:00:00 [facility] Liver failure Liver failure Disease Active 2018-10-16 00:00:00 [facility] Acute blood loss anemia Acute blood loss anemia Disease Active 2018-06-26 00:00:00 [facility] GIB (gastrointestinal bleeding) GIB (gastrointestinal bleeding) Dis ease Active 2018-06-21 00:00:00 [facility] Hemorrhagic shock Hemorrhagic shock Disease Active 2018-06-21 00:00:00 [facility] Hyperbilirubinemia Hyperbilirubinemia Disease Active 2018-06-01 00:00:0 0 [facility] Sinus tachycardia Sinus tachycardia Disease Active 2018-01-28 00:00:00 [facility] Prediabetes Prediabetes Disease Active 2018-01-28 00:00:00 [facility] Jaundice Jaundice Problem Active [facility] Pneumonia Pneumonia Problem Active [facility] [place] [place] Obesity Obesity Disease Active [facility] Fatty liver Fatty liver Disease Active [facility] Dark emesis Dark emesis Disease Active [facility] Hypotension due to hypovolemia Hypotension due to hypovolemia Disease Active [facility] Acute renal failure with tubular necrosis Acute renal failure with tubular necrosis Disease Active [facility] ESRD (end stage renal disease) on dialysis ESRD (end s tage renal disease) on dialysis Disease Active [facility] ESRD on hemodialysis ESRD on hemodialysis Disease Active [facility] History of Past Illness Condition Name Condition Details Condition Category Status Onset Date Resolution Date Last Treatment Date Treating Clinician Comments Source Respiratory center failure Respiratory center failure Disease Resolved 2018-06-01 00:00:00 2018-12-23 00:00:00 2018-12-23 18:37:49 [facility] Acute respiratory failure with hypoxia Acute respiratory ericka lure with hypoxia Disease Resolved 2018-06-01 00:00:00 2018-12-23 00:00:00 2018-12-23 18:37:3 7 [facility] ARDS (adult respiratory distress syndrome) ARDS (adult respiratory distress syndrome) Disease Resolved 2018-06-01 00:00:00 2018-12-23 00:00:00 2 18:37:31 [facility] Acute kidney injury Acute kidney injury Disease Resolved 2018-05 00:00:00 2018-12-23 00:00:00 2018-12-23 18:37:33 [facility] Hyponatremia Hyponatremia Disease Resolved 2018-06-01 00:00:00 2 00:00:00 2018-12-23 18:37:52 [facility] Hypertension Hypertension Disease Resolved 2018-12-23 00: 00:00 2018-12-23 18:37:55 [facility] Allergies, Adverse Reactions, Alerts Allergy Name Allergy Type Status Severity Reaction(s) Onset Date Inacti ve Date Treating Clinician Comments Source Prednisone Drug Intolerance Active 2019-05-04 00:00:00 [facility] Ceftriaxone Drug Allergy Active Rash 2019-01-06 00:00:00 [facility] Family History Family Member Diagnosis Comments Start Date Stop Date Source Natural brother No Known Problem [facility] Natural father Hypertension [facility] Natural mother Hypertension [facility] Natural son No Known Problem [facility] Social History Social Habit Start Date Stop Date Quantity Comments Source Sex Assigned At [facility] Alcohol Comment 2019-02-04 00:00:00 2019-02-04 00:00:00 quit in 9 [facility] Alcohol intake 2018-01-25 00:00:00 2018-01-25 00:00:00 Current drinker of alcohol (finding) [facility] Smoking Status Start Date Stop Date Source Never smoker [facility] edical [place] Medications Ordered Medication Name Filled Medication Name Start Date Stop Da te Current Medication? Ordering Clinician Indication Dosage Frequency Signature (SIG) Comments Components Source traZODone (DESYREL) 50 MG tablet 2019-06-17 10:52:35 Yes 50mg QD Take 50 mg by mouth nightly. [facility] furosemide (LASIX) 10 mg/mL solution 2019-05-13 12:01:00 Ye s QD Take by mouth daily. [facility] colchicine (COLCRYS) 0.6 mg tablet 2019-05-11 00:00:00 23:59:00 No .6mg QD Take 1 tablet (0.6 mg total) by mouth da gunner for 11 days. [facility] FUROSEMIDE ORAL 2019-05-10 14:52:11 2019-05-10 00:00:00 No 80mg QD Take 80 mg by mouth daily . [facility] pantoprazole (PROTONIX) 40 MG tablet 2019-05-10 00:00:00 Ye s 40mg Q.5D Take 1 tablet (40 mg total) by mouth 2 (two) times daily. [facility] UNKNOWN 2019-02-04 09:37:27 2019-02-04 00:00:00 No QD daily Pt states he takes a medication to suppress his alcohol cravings . [facility] UNKNOWN 2019-02-04 09:37:25 2019-02-04 00:00:00 No naus ea as needed Pt takes dissolving tablet for nausea, unsure of name . [facility] thiamine 100 MG tablet 2019-02-04 00:00:00 Yes Portal hypertension (HCC) 100mg QD Take 1 tablet (100 mg total) by mouth daily. [facility] hydrOXYzine (ATARAX) 25 MG tablet 2019-01-16 00:00:00 2018 23:59:00 No Pruritus 25mg Take 1 tablet (2 5 mg total) by mouth every 6 (six) hours as needed for Itching for up to 30 days. [facility] traMADol (ULTRAM) 50 mg tablet 2019-01-06 00:00:00 Yes TK 1 T PO Q 8 H PRN P [facility] diphenhydrAMINE-zinc acetate (BENADRYL EXTRA STRENGTH) 2-0.1 % cream 2019-01-06 00:00:00 2020-01-06 23:59:00 No Apply topically 3 (three) times daily as needed for Itching. [facility] thiamine 100 MG tablet 2018-12-27 00:00:00 2019-02-04 00:00:00 N o 100mg QD Take 1 tablet (100 mg total) by mouth daily. [facility] traZODone (DESYREL) 50 MG tablet 2018-12-26 09:59:23 2018-11 00:00:00 No 50mg QD Take 50 mg by mouth nightly. [facility] midodrine (PROAMATINE) 10 MG tablet 2018-12-26 09:59:2 3 2018-12-26 00:00:00 No 10mg Q.[id number] Take 10 mg by mouth 3 (th ree) times daily. [facility] ondansetron (ZOFRAN-ODT) 4 MG disintegrating tablet 2018-12-26 09:59:23 2018-12-26 00:00:00 No 4mg Take 4 mg by mouth every 6 (six) hours as needed for Nausea. [facility] lactulose (CHRONULAC) 20 gram/30 mL solution 2018-12-26 00:00:00 Yes 30g Q.[id number] Take 45 mLs (30 g total) by mouth 3 ( three) times daily. [facility] r midodrine (PROAMATINE) 10 MG tablet 2018-12-26 00:00:00 Yes 10mg Q.[id number] Take 1 tablet (10 mg total) by mouth 3 ( three) times daily. [facility] phytonadione, vitamin K1, (MEPHYTON) 5 mg tablet 2018-12-26 00:00:00 2019-02-04 00:00:00 No 5mg QD Take 1 tablet (5 mg total) by mouth daily. [facility] ciprofloxacin HCl (CIPRO) 500 MG tablet 00:00:00 2018-12-29 23:59:00 No 500mg QD Take 1 tablet (500 mg total) by mouth daily for 3 days. [facility] heparin injection 1,000 units/mL for IV bolus/dialysis lock 2018-11-15 00:00:00 2018-11-15 23:59:00 No 1000U 1-3.6 mLs (1,000-3,600 Units total) by Intra-Catheter route once as needed (hemodialysis acute catheter packing) for up to 1 dose. [facility] traZODone (DESYREL) 100 MG tablet 2018-11-07 09:2018 00:00:00 No 100mg QD Take 100 mg by mouth nightly. [facility] lactulose (CHRONULAC) 20 gram/30 mL solution 201 11-05-11 09:2018-11-07 00:00:00 No 20g Q.[id number] Ta ke 20 g by mouth 3 (three) times daily Titrate to 3 BM's/day . [facility] furosemide (LASIX) 20 MG tablet 2018-11-07 09: 00:00:00 No 40mg QD Take 40 mg by mouth daily. [facility] folic acid (FOLVITE) 1 MG tablet 2018-11-07 00:00:00 2019-10 23:59:00 No 1mg QD Take 1 tablet (1 mg total) by mouth daily. [facility] pantoprazole (PROTONIX) 40 MG tablet 2018-11-07 00:00: 00 2019-05-10 00:00:00 No 40mg QD Take 1 tablet (40 mg total) by mouth [place] [facility] [facility] lactulose (CHRONULAC) 20 gram/30 mL solution 201 11-05-11 00:00:00 2018-12-26 00:00:00 No 30g Q.[id number] Ta ke 45 mLs (30 g total) by mouth 3 (three) times daily. [facility] ipratropium (ATROVENT) 0.02 % nebulizer solution 2018-11-07 00:00:00 2018-12-26 00:00:00 No .5mg Take 2.5 mLs (0.5 mg total) by nebulization every 6 (six) hours as needed. [facility] levoFLOXacin (LEVAQUIN) IVPB 250 mg in dextrose 5% (D5W) 50 mL 2018-11-07 00:00:00 2018-12-26 00:00:00 No 250mg Q24H Inject 50 mLs (250 mg total) intravenously daily. [facility] melatonin 3 mg Tab tablet 2018-11-07 00:00:00 2018-12-26 00:00:0 0 No 6mg Take 2 tablets (6 mg total) by mouth every night as needed. [facility] octreotide (SANDOSTATIN) 100 mcg/mL Soln 2018-10 00:00:00 2018-12-26 00:00:00 No 100ug Q.[id number] In ject 1 mL (100 mcg total) subcutaneously 3 (three) times daily. [facility] phytonadione 0.8 mg/mL Soln ORAL solution 11-07 00:00:00 2018-12-26 00:00:00 No 5mg QD Take 6.25 mLs (5 mg total) by m outh daily. [facility] thiamine (B-1) 100 mg/mL injection 2018-11-07 00:00:00 11-05-30 00:00:00 No 100mg QD Inject 1 mL (100 mg total) intravenously daily. [facility] traZODone (DESYREL) 50 MG tablet 2018-11-07 00:00:00 2018-11 23:59:00 No 50mg Take 1 tablet (50 mg total) by mouth every night as needed for up to 30 days. [facility] midodrine (PROAMATINE) 5 MG tablet 2018-11-07 00:00:00 201 11-06-11 23:59:00 No 5mg Q.[id number] Take 1 ta blet (5 mg total) by mouth 3 (three) times daily for 30 days. [facility] guaiFENesin (ROBITUSSIN) 100 mg/5 mL syrup 11-07 00:00:00 2018-11-17 23:59:00 No 200mg Take 10 mLs (2 00 mg total) by mouth every 4 (four) hours as needed for Congestion for up to 10 days. [facility] benzonatate (TESSALON) 100 MG capsule 2018-11-07 00:00 :00 2018-11-14 23:59:00 No 100mg Q.[id number] Take 1 capsule (100 mg total) by mouth 3 (three) times daily for 7 days. [facility] multivitamin (THERAGRAN) tablet 2018-07-10 00:00:00 23:59:00 No 1{tbl} QD Take 1 tablet by mouth daily. [facility] furosemide (LASIX) 10 mg/mL injection 2018-07-10 00:00 :00 2018-11-07 00:00:00 No 20mg Inject 2 mLs (2 0 mg total) intravenously daily as needed (significant edema) Patient with hypotension, on midodrine. Need to watch BPs. [facility] cholecalciferol 2,000 unit Tab 2018-07-10 00:00:00 2018-10-16 00 :00:00 No 2000U QD Take 1 tablet (2,000 Units total) by mouth daily. [facility] pantoprazole (PROTONIX) in D5W (MBP) IVPB 07-10 00:00:00 2018-10-16 00:00:00 No 40mg QD Inject 40 mg intravenously mira yFredy [facility] dextrose 50 % in water (DEXTROSE 50%, D50W,) Syrg injection 2018-07-09 00:00:00 2018-10-16 00:00:00 No 12.5g Inject 25 mLs (12.5 g total) intravenously as needed (blood sugar less than 70 and patient unable to take PO juice or soda). [facility] glucagon, human recombinant, 1 mg/mL SolR injection 2018-07-09 00:00:00 2018-10-16 00:00:00 No 1mg Injec t 1 mL (1 mg total) intramuscularly as needed (blood sugar less than 70, patient unable to take PO, AND unable to give D50W if no IV). [facility] hydrogen peroxide 3 % external solution 00:00:00 2018-10-16 00:00:00 No Apply topically as needed. [facility] insulin lispro (HUMALOG) 100 unit/mL injection 2 00:00:00 2018-10-16 00:00:00 No 0U Inject 0-16 Un its subcutaneously as needed (High blood sugar). [facility] ipratropium-albuterol (DUO-NEB) 0.5 mg-3 mg(2.5 mg base)/3 mL nebulizer solution 2018-07-09 00:00:00 2018-10-16 00:00:00 No 3mL Take 3 mLs by nebulization every 6 (six) hours for 360 days. [facility] insulin glargine (LANTUS SOLOSTAR U-100 INSULIN) 100 unit/mL (3 mL) InPn 2018-07-09 00:00:00 2018-10-16 00:00:00 No 18U QD Inject 18 Units subcutaneously nightly. [facility] melatonin 3 mg Tab tablet 2018-07-09 00:00:00 2018-10-16 00:00:0 0 No 9mg Take 3 tablets (9 mg total) by mouth every night as needed. [facility] Folic Acid 1 Mg Tablet Folic Acid 1 Mg Tablet Yes [address] [facility] [place] [place] Hydrochlorothiazide 25 Mg Tablet Hydrochlorothiazide 25 Mg Tablet Yes [address] [facility] [place] [place] Nifedipine (Nifedipine Er) 30 Mg Tab.er.24 Nifedipine (Nifedipine Er) 30 Mg Tab.er.24 Yes 30 Twice A Day [facility] [place] [place] Trazodone Hcl 50 Mg Tablet Trazodone Hcl 50 Mg Tablet Yes 50 Bedtime [facility] Levofloxacin (Levaquin) 500 Mg Tablet, 500 Mg Oral Lev ofloxacin (Levaquin) 500 Mg Tablet, 500 Mg Oral 2018-05-27 00:00:00 No [address] [facility] [place] [place] Olmesartan Med/Amlodipine/Hctz (Tribenzo r 40-5-12.5 Mg Tablet) 1 Each Tablet, 1 Tab Oral Olmesartan Med/Amlodipine/Hctz (Tribenzo r 40-5-12.5 Mg Tablet) 1 Each Tablet, 1 Tab Oral 2018-05-27 00:00:00 No [address] [facility] [place] [place] Pantoprazole Sodium (Protonix) 40 Mg Tablet., 40 Mg Oral Pantoprazole Sodium (Protonix) 40 Mg Tablet., 40 Mg Oral 2018-05-27 00:00:00 No 40 Daily [facility] Vital Signs Vital Name Observation Time Observation Value Comments Source Systolic blood pressure 2019-05-13 10:59:00 115 mm[Hg] [facility] Diastolic blood pressure 2019-05-13 10:59:00 69 mm[Hg] [facility] Heart rate 2019-05-13 10:59:00 90 /min [facility] Body temperature 2019-05-13 10:59:00 36.94 Dariel [facility] Respiratory rate 2019-05-13 10:59:00 18 /min [facility] Body height 2019-05-13 10:59:00 180.3 cm [facility] Body weight Measured 2019-05-13 10:59:00 86.229 kg [facility] BMI 2019-05-13 10:59:00 26.51 kg/m2 [facility] Oxygen saturation in Arterial blood by Pulse oximetry 05-12 10:59:00 100 /min [facility] Procedures Procedure Date / Time Performed Performing Clinician Sour e MR ABDOMEN WITH & WITHOUT IV CONTRAST 2019-05-23 12:08:00 Stribl ing, Erik J. [facility] BASIC METABOLIC PANEL (7) 2019-05-23 09:03:00 Devyn Lantigua [facility] HEPATIC FUNCTION PANEL 2019-05-23 09:03:00 Devyn Lantigua [facility] PROTHROMBIN TIME/INR 2019-05-23 09:03:00 Devyn Lantigua [facility] CBC W/PLT COUNT & AUTO DIFFERENTIAL 2019-05-23 09:03:00 Alfred Lantigua [facility] RHYTHM STRIP - SCAN 2019-05-15 16:11:24 Provider, Default Zita [facility] MISCELLANEOUS LAB ORDER 2019-05-14 09:30:00 Placido Zimmerman [facility] PROTHROMBIN TIME/INR 2019-05-14 09:30:00 Devyn Lantigua [facility] HEPATIC FUNCTION PANEL 2019-05-14 09:30:00 Devyn Lantigua [facility] BASIC METABOLIC PANEL (7) 2019-05-14 09:30:00 Devyn Lantigua [facility] BILIRUBIN, DIRECT 2019-05-14 09:30:00 Devyn Lantigua [facility] CBC W/PLT COUNT & AUTO DIFFERENTIAL 2019-05-14 09:30:00 Alfred Lantigua [facility] REPORT OF PROCEDURE - ENDOSCOPY SCAN 2019-05-13 11:03:24 Pro vider, Default Scanning [facility] RHYTHM STRIP - SCAN 2019-05-12 15:11:01 Provider, Default Scanni loki [facility] REPORT OF PROCEDURE - ENDOSCOPY SCAN 2019-05-12 15:10:56 Pro vider, Default Scanning [facility] CARDIAC CATH REPORT - SCAN 2019-05-12 15:10:54 Provider, Default Scanning [facility] MAGNESIUM 2019-05-10 05:22:00 Carlos Lyons [facility] PHOSPHORUS 2019-05-10 05:22:00 SerenaCarlos augustin [facility] NM MYOCARDIAL PERFUSION PET/CT (REST & STRESS) 2019-05-09 14:55: 00 Robbie New [facility] TREADMILL TOLERANCE(NON-NUCLEAR TREADMILL) 2019-05-09 14:24: 27 Unknown, Hl7 Doctor [facility] HEMODIALYSIS INPATIENT 2019-05-09 07:47:24 Rosamaria Maldonado [facility] MAGNESIUM 2019-05-09 05:35:00 SerenaJimke [facility] PHOSPHORUS 2019-05-09 05:35:00 SerenaCarlos peacock [facility] COMPREHENSIVE METABOLIC PANEL 2019-05-09 05:35:00 Kate Guido [facility] CBC W/PLT COUNT & AUTO DIFFERENTIAL 2019-05-09 05:35:00 Kate Truong [facility] TRANSFUSION SERVICE REPORT - SCAN 2019-05-08 17:52:07 Provid er, Default Scanning [facility] LIMITED 2D ECHOCARDIOGRAM 2019-05-08 11:40:31 Robbie [facility] PROCALCITONIN 2019-05-08 03:02:00 SerenaCarlos peacock [facility] MAGNESIUM 2019-05-08 03:02:00 Serena, Carlos [facility] PHOSPHORUS 2019-05-08 03:02:00 SerenaCarlos augustin [facility] BASIC METABOLIC PANEL (7) 2019-05-08 03:02:00 Idris Murry ph [facility] CBC W/PLT COUNT & AUTO DIFFERENTIAL 2019-05-08 03:02:00 Indra Munguia [facility] (CELLAVISION MANUAL DIFF) 2019-05-08 03:02:00 Idris Murry ph [facility] HEMODIALYSIS INPATIENT 2019-05-08 00:48:36 Rosamaria Maldonado [facility] PREPARE LEUKO-REDUCED RBC 2019-05-07 23:54:00 Zamzam Correa [facility] PERIPHERAL VASCULAR REPORT - SCAN 2019-05-07 21:12:27 Provid er, Default Scanning [facility] PERICARDIOCENTESIS 2019-05-07 20:33:00 [facility] + GRAM STAIN 2019-05-07 19:20:14 Robbie New [facility] CYTOLOGY 2019-05-07 19:20:00 Robbie New [facility] 2D ECHO W/ DOPPLER (CW/PW/COLOR) 2019-05-07 18:32:29 Coreen New [facility] TRANSFUSION SERVICE REPORT - SCAN 2019-05-07 17:52:09 Provid er, Default Scanning [facility] COMPREHENSIVE METABOLIC PANEL 2019-05-07 06:42:00 [place] [facility] CBC W/PLT COUNT & AUTO DIFFERENTIAL 2019-05-07 06:42:00 Isacc Meadows [facility] (CELLAVISION MANUAL DIFF) 2019-05-07 06:42:00 [place] [facility] PREPARE LEUKO-REDUCED RBC 2019-05-06 23:54:00 Juanpablo Calhoun [facility] TRANSFUSION SERVICE REPORT - SCAN 2019-05-06 18:02:23 Provid er, Default Scanning [facility] CAROTID DOPPLER BILATERAL 2019-05-06 16:05:00 Karen Carranza [facility] REPORT OF PROCEDURE - ENDOSCOPY URL 2019-05-06 13:43:19 Zainab Alves [facility] 2D ECHO W/ DOPPLER (CW/PW/COLOR) 2019-05-06 13:06:03 Coreen New [facility] UPPER ENDOSCOPY 2019-05-06 10:00:00 Zainab Alves [facility] COMPREHENSIVE METABOLIC PANEL 2019-05-06 04:52:00 Angelic Lomeli [facility] MAGNESIUM 2019-05-06 04:52:00 Zamzam Correa [facility] CBC W/PLT COUNT & AUTO DIFFERENTIAL 2019-05-06 04:52:00 Kin Lomeli [facility] (CELLAVISION MANUAL DIFF) 2019-05-06 04:52:00 Angelic Lomeli [facility] TRANSFUSE LEUKO-REDUCED RED BLOOD CELLS 2019-05-06 03:24:02 Madeline [facility] CBC W/PLT COUNT & AUTO DIFFERENTIAL 2019-05-05 21:10:00 Ino Correa [facility] BASIC METABOLIC PANEL (7) 2019-05-05 21:09:00 Zamzam Correa [facility] MAGNESIUM 2019-05-05 21:09:00 Madeline [facility] TROPONIN I 2019-05-05 21:09:00 Madeline [facility] ECG 12-LEAD 2019-05-05 20:53:39 Unknown, 7 [facility] ECG 12-LEAD 2019-05-05 20:52:05 Unknown, 7 [facility] ECG 12-LEAD 2019-05-05 19:34:00 Unknown, 7 [facility] ECG 12-LEAD 2019-05-05 19:32:27 Unknown, 7 [facility] TRANSFUSION SERVICE REPORT - SCAN 2019-05-05 17:52:36 Provid er, Default Scanning [facility] HEMODIALYSIS INPATIENT 2019-05-05 15:16:18 Rosamaria Maldonado [facility] HEPATITIS B SURFACE ANTIGEN 2019-05-05 15:02:00 Christopher Maldonado [facility] OCCULT BLOOD, STOOL 2019-05-05 12:07:00 Angelic Lomeli [facility] COMPREHENSIVE METABOLIC PANEL 2019-05-05 09:51:00 Armani [facility] RETICULOCYTE COUNT 2019-05-05 09:51:00 Armani [facility] BILIRUBIN, DIRECT 2019-05-05 09:51:00 Angelic Lomeli Bryson [facility] FERRITIN 2019-05-05 09:51:00 Angelic Lomeli [facility] IRON, TIBC, % SAT. (WITHOUT FERRITIN) 2019-05-05 09:51:00 Armani [facility] DIRECT AHG (LUMA)/DIRECT ANTONIA 2019-05-05 09:51:00 Armani [facility] ABORH, MANUAL 2019-05-05 09:51:00 Armani [facility] CBC W/PLT COUNT & AUTO DIFFERENTIAL 2019-05-05 09:51:00 Kin Lomeli [facility] TRANSFUSE LEUKO-REDUCED RED BLOOD CELLS 2019-05-05 08:35:39 Lj, [facility] TRANSFUSE LEUKO-REDUCED RED BLOOD CELLS 2019-05-05 01:08:39 Lj, [facility] LACTIC ACID, VENOUS 2019-05-05 00:29:00 Lj, [facility] ECG 12-LEAD 2019-05-05 00:27:17 Unknown, Hl7 [facility] TYPE AND SCREEN, AUTOMATED 2019-05-04 20:42:00 Lj, Juanpablo Dalton [facility] URINE CULTURE 2019-05-04 19:53:00 Lj [facility] URINALYSIS W/ REFLEX URINE CULTURE 2019-05-04 19:53:00 Lj, Terrence lew [facility] LEGIONELLA URINE ANTIGEN 2019-05-04 19:53:00 Lj [facility] BLOOD CULTURE 2019-05-04 19:29:00 Lj, [facility] MAGNESIUM 2019-05-04 19:29:00 Lj, [facility] PHOSPHORUS 2019-05-04 19:29:00 Lj [facility] B-TYPE NATRIURETIC FACTOR (BNP) 2019-05-04 19:29:00 [facility] PT/APTT 2019-05-04 19:29:00 Lj [facility] TROPONIN I 2019-05-04 19:29:00 Lj, [facility] COMPREHENSIVE METABOLIC PANEL 2019-05-04 19:29:00 Lj, Juanpablo Charlene roberts [facility] LACTIC ACID, VENOUS 2019-05-04 19:29:00 Lj, Juanpablo Valerio [facility] PROCALCITONIN 2019-05-04 19:29:00 Lj, Juanpablo Valerio [facility] CBC W/PLT COUNT & AUTO DIFFERENTIAL 2019-05-04 19:29:00 Lj, Emigdio spangler Iman [facility] RAPID INFLUENZA A&B SCREEN 2019-05-04 19:28:00 Lj, Juanpablo Dalton noemi [facility] CRITICAL CARE 2019-05-04 18:47:50 Lj, Juanpablo Valerio [facility] XR CHEST 1 VIEW PORTABLE/BEDSIDE 2019-05-04 18:05:00 Lj, Anderson camacho [facility] BASIC METABOLIC PANEL (7) 2019-04-07 09:34:00 Devyn Lantigua [facility] HEPATIC FUNCTION PANEL 2019-04-07 09:34:00 Devyn Lantigua [facility] PROTHROMBIN TIME/INR 2019-04-07 09:34:00 Devyn Lantigua [facility] CBC W/PLT COUNT & AUTO DIFFERENTIAL 2019-04-07 09:34:00 Alfred Lantigua [facility] BASIC METABOLIC PANEL (7) 2019-03-14 10:32:00 Devyn Lantigua [facility] HEPATIC FUNCTION PANEL 2019-03-14 10:32:00 Devyn Lantigua [facility] PROTHROMBIN TIME/INR 2019-03-14 10:32:00 Devyn Lantigua [facility] CBC W/PLT COUNT & AUTO DIFFERENTIAL 2019-03-14 10:32:00 Alfred Lantigua [facility] BILIRUBIN, DIRECT 2019-03-04 10:00:00 Devyn Lantigua [facility] COMPREHENSIVE METABOLIC PANEL 2019-03-04 10:00:00 Devyn Lantigua [facility] CBC W/PLT COUNT & AUTO DIFFERENTIAL 2019-03-04 10:00:00 Alfred Lantigua [facility] PROTHROMBIN TIME/INR 2019-03-04 09:55:00 Devyn Lantigua [facility] BILIRUBIN, DIRECT 2019-02-03 10:13:00 Wilfred Fenton [facility] COMPREHENSIVE METABOLIC PANEL 2019-02-03 10:13:00 Wilfred Fenton [facility] PROTHROMBIN TIME/INR 2019-02-03 10:12:00 Wilfred Fenton [facility] CBC W/PLT COUNT & AUTO DIFFERENTIAL 2019-02-03 10:12:00 Wilfred Fenton [facility] US PELVIS WITH DOPPLER 2019-02-03 09:35:00 Rosamaria Maldonado [facility] RHYTHM STRIP - SCAN 2019-01-21 11:42:13 Provider, Default [facility] RHYTHM STRIP - SCAN 2019-01-20 16:02:13 Provider, Default [facility] RHYTHM STRIP - SCAN 2019-01-20 16:02:12 Provider, Default [facility] TRANSFUSION SERVICE REPORT - SCAN 2019-01-19 18:00:57 Provid er, Default Scanning [facility] PREPARE LEUKO-REDUCED RBC 2019-01-18 23:55:00 Wilfred Fenton [facility] TRANSFUSION SERVICE REPORT - SCAN 2019-01-18 18:03:07 Provid er, Default Scanning [facility] FERRITIN 2019-01-18 17:47:00 [facility], [facility], % SAT. (WITHOUT FERRITIN) 2019-01-18 17:47:00 Leonidas Gutierrez [facility] LACTATE DEHYDROGENASE (LDH) 2019-01-18 17:47:00 [facility] HAPTO[facility]IN 2019-01-18 17:47:00 Leonidas Elaine [facility] VITAMIN B12 AND FOLATE 2019-01-18 17:47:00 KristallauraLeonidas [facility] ULTRAFILTRATION HD CRRT 2019-01-18 15:13:25 Roseanne Zelaya [facility] HEMOGLOBIN AND HEMATOCRIT 2019-01-18 11:17:00 Ye Pool elizabeth [facility] CBC (HEMOGRAM ONLY) 2019-01-18 02:51:00 Ye Pool [facility] TRANSFUSE LEUKO-REDUCED RED BLOOD CELLS 2019-01-17 23:33:32 Ye Pool Benji [facility] TRANSFUSE LEUKO-REDUCED RED BLOOD CELLS 2019-01-17 22:39:14 Ye Pool [facility] HEMODIALYSIS INPATIENT 2019-01-17 21:29:31 Garcia [facility] TYPE AND SCREEN, AUTOMATED 2019-01-17 15:35:00 Wilfred Fenton [facility] HLA TYPING CI 2019-01-16 15:56:00 [facility] 2019-01-16 15:56:00 Rosamaria Maldonado [facility] FLOW PRA CLASS I WITH REFLEX TO ANTIBODY SPECIFICITY 2018-12 15:56:00 Rosamaria Maldonado [facility] FLOW PRA CLASS II WITH REFLEX TO ANTIBODY SPECIFICITY 2018-02 15:56:00 Rosamaria Maldonado [facility] BASIC METABOLIC PANEL (7) 2019-01-16 15:56:00 Carley Boston [facility] HEPATIC FUNCTION PANEL 2019-01-16 15:56:00 Carley Boston [facility] PROTHROMBIN TIME/INR 2019-01-16 15:56:00 Carley Boston [facility] ALPHA FETOPROTEIN (AFP), TUMOR MARKER 2019-01-16 15:56:00 Carley Boston [facility] AB SPECIFICITY CLASS I 2019-01-16 15:56:00 Rosamaria Maldonado [facility] CBC W/PLT COUNT & AUTO DIFFERENTIAL 2019-01-16 15:56:00 Frederick Boston [facility] RHYTHM STRIP - SCAN 2019-01-08 09:10:11 Provider, Default Scaniman manjarrez [facility] TRANSFUSION SERVICE REPORT - SCAN 2019-01-06 17:50:45 Provid er, Default Scanning [facility] MISCELLANEOUS LAB ORDER 2019-01-06 06:01:00 Erik De Leon [facility] CBC (HEMOGRAM ONLY) 2019-01-06 06:01:00 Jeny Paredes V. [facility] BASIC METABOLIC PANEL (7) 2019-01-06 06:01:00 Jeny Paredes V. [facility] MAGNESIUM 2019-01-06 06:01:00 [facility]/INR 2019-01-06 06:01:00 Jeny Paredes V. [facility] HEPATIC FUNCTION PANEL 2019-01-06 06:01:00 Rj Paredesbabcock Yasmin [facility] PREPARE LEUKO-REDUCED RBC 2019-01-05 23:54:00 Vimal Breen [facility] TRANSFUSION SERVICE REPORT - SCAN 2019-01-05 17:50:34 Provid er, Default Scanning [facility] CBC (HEMOGRAM ONLY) 2019-01-05 04:30:00 Jeny Paredes V. [facility] BASIC METABOLIC PANEL (7) 2019-01-05 04:30:00 Jeny Paredes V. [facility] MAGNESIUM 2019-01-05 04:30:00 Jeny Paredes V. [facility] HEPATIC FUNCTION PANEL 2019-01-05 04:30:00 Rj Paredesbabcock Yasmin [facility] PROTHROMBIN TIME/INR 2019-01-05 04:30:00 jR Paredesbabcock Yasmin [facility] PREPARE LEUKO-REDUCED RBC 2019-01-04 23:54:00 Pratik Valdez [facility] TRANSFUSION SERVICE REPORT - SCAN 2019-01-04 17:53:27 Provid er, Default Scanning [facility] DRUG SCREEN, URINE, COMPREHENSIVE 2019-01-04 17:39:00 Laine Roper [facility] DRUG SCREEN, URINE, TRANSPLANT 2019-01-04 17:39:00 Kai Roper [facility] TRANSFUSE LEUKO-REDUCED RED BLOOD CELLS 2019-01-04 14:09:28 Vimal Breen [facility] ETHANOL 2019-01-04 09:42:00 JacquelinKai bauer [facility] BASIC METABOLIC PANEL (7) 2019-01-04 04:07:00 Vimal Breen [facility] HEPATIC FUNCTION PANEL 2019-01-04 04:07:00 Vimal Breen [facility] CBC W/PLT COUNT & AUTO DIFFERENTIAL 2019-01-04 04:07:00 HatVimal serrato [facility] TRANSFUSE LEUKO-REDUCED RED BLOOD CELLS 2019-01-04 01:55:28 Pratik Valdez [facility] TYPE AND SCREEN, AUTOMATED 2019-01-03 21:56:00 Pratik Valdez [facility] BASIC METABOLIC PANEL (7) 2019-01-03 21:54:00 Pratik Valdez [facility] HEPATIC FUNCTION PANEL 2019-01-03 21:54:00 Pratik Valdez [facility] PT/APTT 2019-01-03 21:54:00 Pratik Valdez [facility] CBC W/PLT COUNT & AUTO DIFFERENTIAL 2019-01-03 21:54:00 Kin Valdez [facility] REPORT OF PROCEDURE - ENDOSCOPY SCAN 2018-12-31 12:52:49 Pro vider, Default Scanning [facility] TRANSFUSION SERVICE REPORT - SCAN 2018-12-27 18:02:58 Provid er, Default Scanning [facility] RHYTHM STRIP - SCAN 2018-12-27 16:04:17 Provider, Aye Ahumada [facility] PREPARE LEUKO-REDUCED RBC 2018-12-26 23:54:00 Audie Hoyt [facility] TRANSFUSION SERVICE REPORT - SCAN 2018-12-26 18:02:50 Provid er, Default Scanning [facility] VANCOMYCIN LEVEL, RANDOM 2018-12-26 03:56:00 Maurice Stern [facility] BASIC METABOLIC PANEL (7) 2018-12-26 03:56:00 [facility] MAGNESIUM 2018-12-26 03:56:00 [facility] PHOSPHORUS 2018-12-26 03:56:00 [facility] HAPTOGLOBIN 2018-12-26 03:56:00 Audie Hoyt [facility] HEPATIC FUNCTION PANEL 2018-12-26 03:56:00 Kai Roper [facility] CBC W/PLT COUNT & AUTO DIFFERENTIAL 2018-12-26 03:56:00 Syedal bouchra [facility] PERIPHERAL VASCULAR REPORT - SCAN 2018-12-25 21:23:01 Provid er, Default Scanning [facility] TRANSFUSE LEUKO-REDUCED RED BLOOD CELLS 2018-12-25 11:12:26 Audie Huerta [facility] TYPE AND SCREEN, AUTOMATED 2018-12-25 08:51:00 Audie Hoyt [facility] BLOOD CULTURE 2018-12-25 08:25:00 Sydney Vasquez [facility] BASIC METABOLIC PANEL (7) 2018-12-25 03:46:00 [facility] 2018-12-25 03:46:00 [facility] PHOS[facility]US 2018-12-25 03:46:00 [facility] HEPATIC FUNCTION PANEL 2018-12-25 03:46:00 Placido Zimmerman [facility] PROTHROMBIN TIME/INR 2018-12-25 03:46:00 Placido Zimmerman [facility] LACTATE DEHYDROGENASE (LDH) 2018-12-25 03:46:00 Kai Roper [facility] CBC W/PLT COUNT & AUTO DIFFERENTIAL 2018-12-25 03:46:00 Anahicarekenisha shook [facility] VENOUS DOPPLER LEGS BILATERAL 2018-12-24 18:55:00 Evelina, Roy [facility] TRANSFUSION SERVICE REPORT - SCAN 2018-12-24 18:02:36 Provid er, Default Scanning [facility] BASIC METABOLIC PANEL (7) 2018-12-24 03:18:00 Ciccarellrafaela [facility] MAGNESIUM 2018-12-24 03:18:00 Ciccarellrafaela [facility] PHOSPHORUS 2018-12-24 03:18:00 Ciccarellrafaela [facility] CBC W/PLT COUNT & AUTO DIFFERENTIAL 2018-12-24 03:18:00 Ciccarel bouchra [facility] PREPARE LEUKO-REDUCED RBC 2018-12-23 23:54:00 Omero Moura [facility] HEMODIALYSIS INPATIENT 2018-12-23 23:25:30 Adri Soler [facility] CBC (HEMOGRAM ONLY) 2018-12-23 20:04:00 Maurice Stern [facility] TRANSFUSION SERVICE REPORT - SCAN 2018-12-23 18:01:02 Provid er, Default Scanning [facility] BASIC METABOLIC PANEL (7) 2018-12-23 04:01:00 Ciccarefabiano [facility] MAGNESIUM 2018-12-23 04:01:00 Ciccarebrennan [facility] PHOSPHORUS 2018-12-23 04:01:00 [facility] VANCOMYCIN LEVEL, RANDOM 2018-12-23 04:01:00 Ian Shmuelsorin Guadalupe [facility] HEPATITIS B SURFACE ANTIGEN 2018-12-23 04:01:00 Adri Soler [facility] CBC W/PLT COUNT & AUTO DIFFERENTIAL 2018-12-23 04:01:00 Ciccarel lo, [facility] PREPARE LEUKO-REDUCED RBC 2018-12-22 23:54:00 Víctor Breen [facility] CT LOWER EXTREMITY WITHOUT IV CONTRAST RIGHT 2018-12-22 21:0 4:00 Omero Moura [facility] TRANSFUSION SERVICE REPORT - SCAN 2018-12-22 18:01:22 Provid er, Default Scanning [facility] VANCOMYCIN LEVEL, TROUGH 2018-12-22 16:26:00 Ian, Shmuel Guadalupe [facility] CBC (HEMOGRAM ONLY) 2018-12-22 16:26:00 Christy [facility] TRANSFUSE LEUKO-REDUCED RED BLOOD CELLS 2018-12-22 11:21:40 Omero Hernandes [facility] XR CHEST 1 VIEW PORTABLE/BEDSIDE 2018-12-22 05:29:00 [facility] BASIC METABOLIC PANEL (7) 2018-12-22 03:56:00 Gian [facility] MAGNESIUM 2018-12-22 03:56:00 Gian [facility] PHOSPHORUS 2018-12-22 03:56[facility]00 [facility], VENOUS 2018-12-22 03:56:00 [facility] CBC W/PLT COUNT & AUTO DIFFERENTIAL 2018-12-22 03:56:00 Sharad shook [facility] FIBRINOGEN 2018-12-22 03:55:00 Shmuel Sosa [facility] HEMOGLOBIN AND HEMATOCRIT 2018-12-21 08:29:00 Gian [facility] TRANSFUSE LEUKO-REDUCED RED BLOOD CELLS 2018-12-21 07:30:55 Víctor Breen [facility] POCT-LACTIC ACID, VENOUS 2018-12-21 04:01:00 Víctor Breen Ma [facility] BLOOD CULTURE 2018-12-21 03:04:00 Víctor Breen [facility] AMMONIA 2018-12-21 02:48:00 Center Víctor [facility] PROCALCITONIN 2018-12-21 02:48:00 [facility] POCT-LACTIC ACID, VENOUS 2018-12-21 02:01:00 JuliaVíctor Ma [facility] BLOOD CULTURE 2018-12-21 01:54:00 CenterVíctor [facility] COMPREHENSIVE METABOLIC PANEL 2018-12-21 01:53:00 CenterGavino [facility] TROPONIN I 2018-12-21 01:53:00 [facility] PT/APTT 2018-12-21 01:53:00 [facility] MAGNESIUM 2018-12-21 01:53:00 [facility] TYPE AND SCREEN, AUTOMATED 2018-12-21 01:53:00 Center Víctor [facility] CBC W/PLT COUNT & AUTO DIFFERENTIAL 2018-12-21 01:53:00 [facility] XR CHEST 1 VIEW PORTABLE/BEDSIDE 2018-12-21 01:39:00 Kenisha Breen [facility] XR KNEE RIGHT COMPLETE (4 VIEWS) 2018-12-21 01:39:00 Kenisha Breen [facility] ECG 12-LEAD 2018-12-21 01:18:37 Unknown, Hl7 [facility] CRITICAL CARE 2018-12-21 01:10:14 [facility] RHYTHM STRIP - SCAN 2018-11-19 09:00:16 Provider, Default Scanni loki [facility] TRANSFUSION SERVICE REPORT - SCAN 2018-11-15 17:52:49 Provid er, Default Scanning [facility] CBC W/PLT COUNT & AUTO DIFFERENTIAL 2018-11-15 11:16:00 Panchito Hicks [facility] (MANUAL DIFFERENTIAL) 2018-11-15 11:16:00 Panchito Hicks [facility] HEPATIC FUNCTION PANEL 2018-11-15 04:40:00 Maru Pearson [facility] PROTHROMBIN TIME/INR 2018-11-15 04:40:00 Dariela Pearson [facility] BASIC METABOLIC PANEL (7) 2018-11-15 04:40:00 Al Stephens [facility] PHOSPHORUS 2018-11-15 04:40:00 Karen Dorantes [facility] CBC W/PLT COUNT & AUTO DIFFERENTIAL 2018-11-15 04:40:00 [facility] Hospital[facility] PREPARE LEUKO-REDUCED RBC 2018-11-14 23:54:00 Panchito Hicks [facility] TRANSFUSION SERVICE REPORT - SCAN 2018-11-14 18:03:46 Provid er, Default Scanning [facility] IR TUNNELED DIALYSIS CATHETER 2018-11-14 12:38:00 Marlys Dorantes [facility] HEPATIC FUNCTION PANEL 2018-11-14 05:10:00 [facility]u [facility] PROTHROMBIN TIME/INR 2018-11-14 05:10:00 Dariela Pearson sofi [facility] BASIC METABOLIC PANEL (7) 2018-11-14 05:10:00 Al Stephens [facility] CBC W/PLT COUNT & AUTO DIFFERENTIAL 2018-11-14 05:10:00 David Okeefe aidee [facility] TRANSFUSE LEUKO-REDUCED RED BLOOD CELLS 2018-11-13 12:08:04 Panchito Arenas [facility] TYPE AND SCREEN, AUTOMATED 2018-11-13 08:34:00 Panchito Hicks [facility] HEMOGLOBIN AND HEMATOCRIT 2018-11-13 07:51:00 Panchito Hicks [facility] HEPATIC FUNCTION PANEL 2018-11-13 05:25:00 Maru Pearson [facility] PROTHROMBIN TIME/INR 2018-11-13 05:25:00 Dariela Pearson [facility] BASIC METABOLIC PANEL (7) 2018-11-13 05:25:00 Al Stephens [facility] PHOSPHORUS 2018-11-13 05:25:00 Karen Dorantes [facility] CBC W/PLT COUNT & AUTO DIFFERENTIAL 2018-11-13 05:25:00 David Okeefe [facility] XR CHEST 2 VIEWS 2018-11-12 21:38:00 Afua Nguyen [facility] HEPATIC FUNCTION PANEL 2018-11-12 03:36:00 Maru Pearson [facility] PROTHROMBIN TIME/INR 2018-11-12 03:36:00 Dariela Pearson sofi [facility] BASIC METABOLIC PANEL (7) 2018-11-12 03:36:00 Kat La [facility] CBC W/PLT COUNT & AUTO DIFFERENTIAL 2018-11-12 03:36:00 David Okeefe aidee [facility] PROTEIN, RANDOM URINE 2018-11-12 01:55:00 Karen Dorantes [facility] CREATININE, RANDOM URINE 2018-11-12 01:55:00 Karen Dorantes [facility] HEPATIC FUNCTION PANEL 2018-11-11 03:46:00 Maru Pearson [facility] PROTHROMBIN TIME/INR 2018-11-11 03:46:00 Dariela Pearson [facility] BASIC METABOLIC PANEL (7) 2018-11-11 03:46:00 Kat Al [facility] CBC W/PLT COUNT & AUTO DIFFERENTIAL 2018-11-11 03:46:00 David Okeefea [facility] (CELLAVISION MANUAL DIFF) 2018-11-11 03:46:00 Yenifer Okeefe a [facility] TRANSFUSION SERVICE REPORT - SCAN 2018-11-10 18:01:07 Provid er, Default Scanning [facility] REPORT OF PROCEDURE - ENDOSCOPY URL 2018-11-10 14:04:49 Alfred Lantigua [facility] TISSUE EXAM 2018-11-10 13:25:00 Devyn Lantigua [facility] COLONOSCOPY,BIOPSY 2018-11-10 13:00:00 Devyn Lantgiua [facility] HEPATIC FUNCTION PANEL 2018-11-10 04:30:00 Maru Pearson [facility] PROTHROMBIN TIME/INR 2018-11-10 04:30:00 Dariela Pearson [facility] BASIC METABOLIC PANEL (7) 2018-11-10 04:30:00 Al Stephens [facility] CBC W/PLT COUNT & AUTO DIFFERENTIAL 2018-11-10 04:30:00 David Okeefe [facility] PREPARE LEUKO-REDUCED RBC 2018-11-09 23:54:00 Jeny Paredes V. [facility] URINALYSIS W/ REFLEX URINE CULTURE 2018-11-09 23:07:00 [facility] BLOOD CULTURE 2018-11-09 18:26:00 Michel [facility] TRANSFUSION SERVICE REPORT - SCAN 2018-11-09 18:02:25 Provid er, Default Scanning [facility] HEMODIALYSIS INPATIENT 2018-11-09 16:56:01 Matty Edmonds [facility] HEMODIALYSIS INPATIENT 2018-11-09 15:25:00 Karen Dorantes [facility] HEPATIC FUNCTION PANEL 2018-11-09 03:43:00 Maru Pearson [facility] PROTHROMBIN TIME/INR 2018-11-09 03:43:00 Dariela Pearson [facility] BASIC METABOLIC PANEL (7) 2018-11-09 03:43:00 Al Stephens [facility] PHOSPHORUS 2018-11-09 03:43:00 Karen Dorantes [facility] CBC W/PLT COUNT & AUTO DIFFERENTIAL 2018-11-09 03:43:00 [facility]fe [facility] TRANSFUSE LEUKO-REDUCED RED BLOOD CELLS 2018-11-08 18:16:10 Jeny Lewis V. [facility] TRANSFUSE LEUKO-REDUCED RED BLOOD CELLS 2018-11-08 15:03:23 Jeny Lewis V. [facility] MISCELLANEOUS LAB ORDER 2018-11-08 14:39:00 Devyn Lantigua [facility] TYPE AND SCREEN, AUTOMATED 2018-11-08 09:26:00 [facility] Center[facility] HEPATIC FUNCTION PANEL 2018-11-08 04:21:00 Maru Pearson [facility] BASIC METABOLIC PANEL (7) 2018-11-08 04:21:00 Al Stephens [facility] MAGNESIUM 2018-11-08 04:21:00 Kendal [facility] PHOSPHORUS 2018-11-08 04:21:00 Kendal [facility] YARI ANTIGEN WITH REFLEX TO TITER 2018-11-08 04:20:00 Devyn Lantigua [facility] PROTHROMBIN TIME/INR 2018-11-08 04:20:00 Dariela Pearson [facility] YARI ANTIGEN TITER 2018-11-08 04:20:00 Devyn Lantigua [facility] CBC W/PLT COUNT & AUTO DIFFERENTIAL 2018-11-08 04:20:00 [facility]fe [facility] CT CHEST WITH HIGH RESOLUTION/ILD 2018-11-08 00:16:00 Lizz Lantigua [facility] MR ABDOMEN WITH & WITHOUT IV CONTRAST 2018-11-07 18:45:00 Devyn Lantigua [facility] HEPATIC FUNCTION PANEL 2018-11-07 05:24:00 Michel Hectorlilibeth [facility] PROTHROMBIN TIME/INR 2018-11-07 05:24:00 Dariela Pearson [facility] BASIC METABOLIC PANEL (7) 2018-11-07 05:24:00 [facility] CBC W/PLT COUNT & AUTO DIFFERENTIAL 2018-11-07 05:24:00 Sary, David holt Augustaidee [facility] (CELLAVISION MANUAL DIFF) 2018-11-07 05:24:00 SaryYenifer a [facility] HEPATIC FUNCTION PANEL 2018-11-06 03:32:00 Maru Pearson [facility] PROTHROMBIN TIME/INR 2018-11-06 03:32:00 Dariela Pearson [facility] BASIC METABOLIC PANEL (7) 2018-11-06 03:32:00 Bat [facility] CBC W/PLT COUNT & AUTO DIFFERENTIAL 2018-11-06 03:32:00 Sary, David yssa Hyunna [facility] (CELLAVISION MANUAL DIFF) 2018-11-06 03:32:00 SaryYenifer gracia a [facility] URINE CULTURE 2018-11-05 20:47:00 [facility]/ MICROSCOPIC 2018-11-05 20:47:00 Jeny Paredes V. [facility] XR CHEST 1 VIEW PORTABLE/BEDSIDE 2018-11-05 20:02:00 Mila Hicks [facility] HEPATITIS B SURFACE ANTIGEN 2018-11-05 15:32:00 Alber Edmondshish [facility] HEPATITIS B SURFACE ANTIBODY 2018-11-05 15:32:00 Kendal [facility] HEPATITIS B CORE ANTIBODY, TOTAL 2018-11-05 15:32:00 Alber Edmonds [facility] IR NON-TUNNELED DIALYSIS CATHETER INSERTION 2018-11-05 12:10 :00 Kendal, [facility] PT/APTT 2018-11-05 05:07:00 Kendal, [facility] HEPATIC FUNCTION PANEL 2018-11-05 05:07:00 Maru Pearson [facility] PROTHROMBIN TIME/INR 2018-11-05 05:07:00 Dariela Pearson sofi [facility] BASIC METABOLIC PANEL (7) 2018-11-05 05:07:00 Al Stephens [facility] MAGNESIUM 2018-11-05 05:07:00 Kendal [facility] PHOSPHORUS 2018-11-05 05:07:00 Kendal [facility] CBC W/PLT COUNT & AUTO DIFFERENTIAL 2018-11-05 05:07:00 David Okeefe [facility] (CELLAVISION MANUAL DIFF) 2018-11-05 05:07:00 Yenifer Okeefe [facility] BLOOD CULTURE 2018-11-04 19:53:00 [facility] URINALYSIS W/ REFLEX URINE CULTURE 2018-11-04 19:52:00 [facility] AMMONIA 2018-11-04 12:42:00 Jeny [facility] HEPATIC FUNCTION PANEL 2018-11-04 03:47:00 Maru Pearsonbillie [facility] PROTHROMBIN TIME/INR 2018-11-04 03:47:00 Dariela Pearson [facility] BASIC METABOLIC PANEL (7) 2018-11-04 03:47:00 Al Stephens [facility] MAGNESIUM 2018-11-04 03:47:00 Jeny [facility]aredes [facility] CBC W/PLT COUNT & AUTO DIFFERENTIAL 2018-11-04 03:46:00 David Okeefe [facility] (CELLAVISION MANUAL DIFF) 2018-11-04 03:46:00 Yenifer Okeefe [facility] HEPATIC FUNCTION PANEL 2018-11-03 04:00:00 Maru Pearson [facility] PROTHROMBIN TIME/INR 2018-11-03 04:00:00 Dariela Pearson [facility] BASIC METABOLIC PANEL (7) 2018-11-03 04:00:00 Kat Al [facility] CBC W/PLT COUNT & AUTO DIFFERENTIAL 2018-11-03 04:00:00 David [facility] HEPATIC FUNCTION PANEL 2018-11-02 05:22:00 Maru Pearson [facility] PROTHROMBIN TIME/INR 2018-11-02 05:22:00 Dariela Pearson [facility] BASIC METABOLIC PANEL (7) 2018-11-02 05:22:00 aKt Al [facility] CBC W/PLT COUNT & AUTO DIFFERENTIAL 2018-11-02 05:22:00 David Okeefe [facility] HEPATIC FUNCTION PANEL 2018-11-01 05:24:00 Maru Pearson [facility] PROTHROMBIN TIME/INR 2018-11-01 05:24:00 Dariela Pearson [facility] BASIC METABOLIC PANEL (7) 2018-11-01 05:24:00 Kat Al [facility] CBC W/PLT COUNT & AUTO DIFFERENTIAL 2018-11-01 05:24:00 David Okeefe [facility] HEPATIC FUNCTION PANEL 2018-10-31 04:19:00 Maru Pearson [facility] PROTHROMBIN TIME/INR 2018-10-31 04:19:00 Dariela Pearson sofi [facility] BASIC METABOLIC PANEL (7) 2018-10-31 04:19:00 Al Stephens [facility] CBC W/PLT COUNT & AUTO DIFFERENTIAL 2018-10-31 04:19:00 David Okeefe [facility] SODIUM, RANDOM URINE 2018-10-30 20:42:00 Karen Dorantes [facility] HEPATIC FUNCTION PANEL 2018-10-30 03:27:00 Maru Pearson [facility] PROTHROMBIN TIME/INR 2018-10-30 03:27:00 Dariela Pearson [facility] BASIC METABOLIC PANEL (7) 2018-10-30 03:27:00 Kat Al [facility] CBC W/PLT COUNT & AUTO DIFFERENTIAL 2018-10-30 03:27:00 David Okeefe [facility] HEPATIC FUNCTION PANEL 2018-10-29 04:12:00 [facility] 2018-10-29 04:12:00 Dariela Pearson [facility] BASIC METABOLIC PANEL (7) 2018-10-29 04:12:00 Laney Pearson [facility] CBC W/PLT COUNT & AUTO DIFFERENTIAL 2018-10-29 04:12:00 David Okeefesan [facility] (CELLAVISION MANUAL DIFF) 2018-10-29 04:12:00 Yenifer Okeefe [facility] HEPATIC FUNCTION PANEL 2018-10-28 03:26:00 Maru Pearson [facility] PROTHROMBIN TIME/INR 2018-10-28 03:26:00 Dariela Pearson [facility] BASIC METABOLIC PANEL (7) 2018-10-28 03:26:00 Laney Pearson [facility] CBC W/PLT COUNT & AUTO DIFFERENTIAL 2018-10-28 03:26:00 David Okeefe [facility] US PARACENTESIS 2018-10-27 15:07:00 Bruce [facility] BODY FLUID CELL COUNT WITH DIFFERENTIAL 2018-10-27 15:00:00 Juanpablo laney [facility] BODY FLUID CULTURE + GRAM STAIN 2018-10-27 15:00:00 Enriquebenigno Desmendoza salcedo [facility] BLOOD CULTURE 2018-10-27 13:19:00 Bruce [facility] LACTIC ACID, VENOUS 2018-10-27 13:13:00 NeasonPanchito [facility] BLOOD CULTURE 2018-10-27 13:12:00 Bruce [facility] HEPATIC FUNCTION PANEL 2018-10-27 03:57:00 Maru Pearson [facility] PROTHROMBIN TIME/INR 2018-10-27 03:57:00 Dariela Pearson sofi [facility] BASIC METABOLIC PANEL (7) 2018-10-27 03:57:00 [facility] & AUTO DIFFERENTIAL 2018-10-27 03:57:00 David Okeefe [facility] US ABDOMEN LIMITED 2018-10-26 04:21:00 Mati Pearson [facility] HEPATIC FUNCTION PANEL 2018-10-26 03:50:00 Maru Pearson [facility] PROTHROMBIN TIME/INR 2018-10-26 03:50:00 Dariela Pearson [facility] BASIC METABOLIC PANEL (7) 2018-10-26 03:50:00 [facility] W/[facility]T [facility] & AUTO DIFFERENTIAL 2018-10-26 03:50:00 [facility] 2018-10-25 04:01:00 Maru Pearson [facility] PROTHROMBIN TIME/INR 2018-10-25 04:01:00 Dariela Pearson [facility] BASIC METABOLIC PANEL (7) 2018-10-25 04:01:00 Laney Pearson jennifer [facility] CBC W/PLT COUNT & AUTO DIFFERENTIAL 2018-10-25 04:01:00 David Okeefe [facility] BASIC METABOLIC PANEL (7) 2018-10-24 04:36:00 Laney Pearson [facility] HEPATIC FUNCTION PANEL 2018-10-24 04:36:00 Maru Pearson [facility] PROTHROMBIN TIME/INR 2018-10-24 04:36:00 Dariela Pearson sofi [facility] MAGNESIUM 2018-10-24 04:36:00 Neibis Panchito [facility] PHOSPHORUS 2018-10-24 04:36:00 Neibis [facility] CBC W/PLT COUNT & AUTO DIFFERENTIAL 2018-10-24 04:36:00 [facility] MISCELLANEOUS LAB ORDER 2018-10-23 18:25:00 Junaid Pearson [facility] HEPATIC FUNCTION PANEL 2018-10-23 03:54:00 Maru Pearsonbillie [facility] PROTHROMBIN TIME/INR 2018-10-23 03:54:00 Dariela Pearson sofi [facility] MAGNESIUM 2018-10-23 03:54:00 NePanchito baumann [facility] PHOSPHORUS 2018-10-23 03:54:00 Neibis Panchito Le [facility] BASIC METABOLIC PANEL (7) 2018-10-23 03:54:00 Al Stephens [facility] CBC W/PLT COUNT & AUTO DIFFERENTIAL 2018-10-23 03:54:00 David Okeefe [facility] URINALYSIS W/ REFLEX URINE CULTURE 2018-10-22 16:48:00 Maryellen Balderrama [facility] BLOOD CULTURE 2018-10-22 15:01:00 Maryellen Pearson [facility] HEPATIC FUNCTION PANEL 2018-10-22 04:20:00 Maru Pearsonbillie [facility] PROTHROMBIN TIME/INR 2018-10-22 04:20:00 Dariela Pearson [facility] BASIC METABOLIC PANEL (7) 2018-10-22 04:20:00 Kat Al [facility] CBC W/PLT COUNT & AUTO DIFFERENTIAL 2018-10-22 04:20:00 David Okeefe [facility] (CELLAVISION MANUAL DIFF) 2018-10-22 04:20:00 Yenifer Okeefe [facility] HEPATIC FUNCTION PANEL 2018-10-21 05:01:00 [facility]/INR 2018-10-21 05:01:00 Dariela Pearson [facility] RETICULOCYTE COUNT 2018-10-21 05:01:00 Mati Pearson [facility] HAPTOGLOBIN 2018-10-21 05:01:00 Michel [facility] PERIPHERAL BLOOD SMEAR - PATHOLOGIST REVIEW 2018-10-21 05:01 :00 Maryellen Pearson [facility] VITAMIN B12 AND FOLATE 2018-10-21 05:01:00 Yenifer Okeefe [facility] BASIC METABOLIC PANEL (7) 2018-10-21 05:01:00 Al Stephens [facility] CBC W/PLT COUNT & AUTO DIFFERENTIAL 2018-10-21 05:01:00 David Okeefe Hysurindera [facility] (CELLAVISION MANUAL DIFF) 2018-10-21 05:01:00 Yenifer Okeefeunn a [facility] 2D ECHO W/ DOPPLER (CW/PW/COLOR) 2018-10-20 13:30:32 Kendrick Okeefe [facility] HEPATIC FUNCTION PANEL 2018-10-20 06:22:00 Maru Pearson [facility] PROTHROMBIN TIME/INR 2018-10-20 06:22:00 Dariela Pearson [facility] MAGNESIUM 2018-10-20 06:22:00 Panchito Hicks [facility] PHOSPHORUS 2018-10-20 06:22:00 [facility] BASIC METABOLIC PANEL (7) 2018-10-20 06:22:00 Yenifer Okeefe [facility] LACTATE DEHYDROGENASE (LDH) 2018-10-20 06:22:00 Ra romario Pearson [facility] CBC W/PLT COUNT & AUTO DIFFERENTIAL 2018-10-20 06:22:00 [facility] P[facility] Le [facility] CBC W/PLT COUNT & AUTO DIFFERENTIAL 2018-10-19 21:55:00 [facility] TRANSFUSION SERVICE REPORT - SCAN 2018-10-19 17:52:12 Provid er, Default Scanning [facility] CBC W/PLT COUNT & AUTO DIFFERENTIAL 2018-10-19 15:48:00 [facility] REPORT OF PROCEDURE - ENDOSCOPY URL 2018-10-19 11:05:57 Moriah Parisi lucila [facility] REPORT OF PROCEDURE - ENDOSCOPY URL 2018-10-19 09:17:18 Moriah Parisi [facility] TISSUE EXAM 2018-10-19 08:56:00 Isak [facility] COLONOSCOPY,BIOPSY 2018-10-19 08:00:00 Isak [facility] UPPER ENDOSCOPY 2018-10-19 08:00:00 Isak [facility] COLONOSCOPY,POLYPECTOMY 2018-10-19 08:00:00 [facility] PROTHROMBIN TIME/INR 2018-10-19 03:52:00 Dariela Pearson [facility] BASIC METABOLIC PANEL (7) 2018-10-19 03:50:00 Eric Lei [facility] HEPATIC FUNCTION PANEL 2018-10-19 03:50:00 Maru Pearson [facility] MAGNESIUM 2018-10-19 03:50:00 Neibis [facility] PHOSPHORUS 2018-10-19 03:50:00 Neibis [facility] CBC W/PLT COUNT & AUTO DIFFERENTIAL 2018-10-19 03:50:[facility] (CELLAVISION MANUAL DIFF) 2018-10-19 03:50:00 [facility] PREPARE LEUKO-REDUCED RBC 2018-10-18 23:54:00 Keshav Murray [facility] CBC W/PLT COUNT & AUTO DIFFERENTIAL 2018-10-18 19:17:00 Kurt [facility] (CELLAVISION MANUAL DIFF) 2018-10-18 19:17:00 [facility] SODIUM, RANDOM URINE 2018-10-18 18:43:00 [facility] CREATININE, RANDOM URINE 2018-10-18 18:43:00 [facility] UREA NITROGEN, RANDOM URINE 2018-10-18 18:43:00 [facility] TRANSFUSION SERVICE REPORT - SCAN 2018-10-18 17:52:19 Provid er, Default Scanning [facility] CBC W/PLT COUNT & AUTO DIFFERENTIAL 2018-10-18 12:33:00 Kurt [facility] (CELLAVISION MANUAL DIFF) 2018-10-18 12:33:00 Kurt [facility] LACTIC ACID, VENOUS 2018-10-18 06:49:00 Kurt [facility] BASIC METABOLIC PANEL (7) 2018-10-18 04:55:00 Ochoagarrett Eric Randall S[facility] HEPATIC FUNCTION PANEL 2018-10-18 04:55:00 Maru Pearson [facility] PROTHROMBIN TIME/INR 2018-10-18 04:55:00 Dariela Pearson [facility] CBC W/PLT COUNT & AUTO DIFFERENTIAL 2018-10-18 04:55:00 Pablo Murray [facility] (CELLAVISION MANUAL DIFF) 2018-10-18 04:55:00 Keshav Murray [facility] CBC W/PLT COUNT & AUTO DIFFERENTIAL 2018-10-17 20:59:00 Pablo Murray [facility] (CELLAVISION MANUAL DIFF) 2018-10-17 20:59:00 Keshav Murray [facility] URINALYSIS W/ REFLEX URINE CULTURE 2018-10-17 17:55:00 Brandon Murray [facility] BASIC METABOLIC PANEL (7) 2018-10-17 17:55:00 [facility]TE 2018-10-17 17:12:00 Tavon Pearson [facility] US DOPPLER 2018-10-17 17:12:00 Mandeep Taylor [facility] DRUG SCREEN, URINE, COMPREHENSIVE 2018-10-17 15:48:00 Maryellen Fitch [facility] BLOOD CULTURE 2018-10-17 15:39:00 Keshav Murray [facility] MISCELLANEOUS LAB ORDER 2018-10-17 15:01:00 Junaid Pearson [facility] LACTIC ACID, VENOUS 2018-10-17 15:01:00 Keshav Murray [facility] PROCALCITONIN 2018-10-17 15:01:00 Keshav Murray [facility] ETHANOL 2018-10-17 15:01:00 Maryellen Pearson [facility] CBC W/PLT COUNT & AUTO DIFFERENTIAL 2018-10-17 15:01:00 Ant Lei am [facility] BLOOD CULTURE 2018-10-17 15:00:00 Trevor [facility] TRANSFUSE LEUKO-REDUCED RED BLOOD CELLS 2018-10-17 13:42:37 Keshav Murray [facility] BASIC METABOLIC PANEL (7) 2018-10-17 06:25:00 Eric Lei [facility] HEPATIC FUNCTION PANEL 2018-10-17 06:25:00 Maru Pearson [facility] MAGNESIUM 2018-10-17 06:25:00 Keshav Murray [facility] CBC W/PLT COUNT & AUTO DIFFERENTIAL 2018-10-17 06:25:00 Ant Lei am [facility] (CELLAVISION MANUAL DIFF) 2018-10-17 06:25:00 Eric Lei [facility] TRANSFUSE LEUKO-REDUCED RED BLOOD CELLS 2018-10-17 05:27:28 Gabriel Mcbride [facility] ECG 12-LEAD 2018-10-17 03:56:53 Eric Lei [facility] TYPE AND SCREEN, AUTOMATED 2018-10-17 00:38:00 Eric Lei [facility] URINALYSIS W/ REFLEX URINE CULTURE 2018-10-17 00:37:00 Melissa Lie [facility] COMPREHENSIVE METABOLIC PANEL 2018-10-16 23:29:00 Eric Lei [facility] BILIRUBIN, DIRECT 2018-10-16 23:29:00 Eric Lei [facility] PROTHROMBIN TIME/INR 2018-10-16 23:29:00 Eric Lei [facility] MAGNESIUM 2018-10-16 23:29:00 Eric Lei [facility] CREATINE KINASE (CK) 2018-10-16 23:29:00 Eric Lei [facility] CBC W/PLT COUNT & AUTO DIFFERENTIAL 2018-10-16 23:29:00 Ant Lei am [facility] XR CHEST 1 VIEW PORTABLE/BEDSIDE 2018-10-16 22:10:00 Eric Lei [facility] Computed tomography of abdomen and pelvis with contrast 2018 00:00:[address] [facility] [place] [place] Computed tomography of chest with contrast 2018-05-31 00:00: [address] [facility] [place] [place] Ultrasound guidance for vascular access 2018-05-30 00:00:[address] [facility] [place] [place] INSERTION OF ENDOTRACHEAL AIRWAY INTO TRACHEA, VIA OPENING 2 00:00:00 PIERCY [facility] RESPIRATORY VENTILATION, 24-96 CONSECUTIVE HOURS 2018-05-30 00:00:[address] [facility] [place] [place] INSERTION OF INFUSION DEVICE INTO R ATRIUM, PERC APPROACH 20 15-06-03 00:00:[address] [facility] [place] [place] ASSISTANCE WITH RESPIRATORY VENTILATION, <24 HRS, CPAP 05-29 00:00:[address] [facility] [place] [place] X-ray of chest, two views 2018-05-28 00:00:[address] [facility] [place] [place] Computed tomography of chest without contrast 2018-05-28 00: 00:[address] [facility] [place] [place] X-ray of chest, two views 2018-05-27 00:00:[address] [facility] [place] [place] Computed tomography of abdomen and pelvis with contrast 2018 00:00:[address] [facility] [place] [place] US Gallbladder 2018-05-27 00:00:00 [facility] Plan of Care Planned Activity Planned Date Details Comments Source Future Scheduled Test 2021-06-18 00:00:00 Lipid panel (proce dure) [code = 96539420] [facility] 2019-11-27 00:00:00 IMM Influenza Seas onal Nov to April (>/= 19 yrs) [code = IMM Influenza Seasonal Nov to April (>/= 19 yrs)] [facility] Scheduled Test 2019-10-28 00:00:00 INFLUENZA VACCINE (#1) [code = INFLUENZA VACCINE (#1)] [facility] Future Scheduled Test 1984 00:00:00 PNEUMOCOCCAL VACCI NE 2-64 YEARS AT RISK (1 of 3 - PCV13) [code = PNEUMOCOCCAL VACCINE 2-64 YEARS AT RISK (1 of 3 - PCV13)] [facility] Encounters Start Date/Time End Date/Time Encounter Type Admission Type Attendi [facility] Care Department Encounter ID Source 2018-01-28 08:27:07 Inpatient [facility] [id number] [facility] 2018-01-28 01:10:06 Inpatient [facility] [id number] [facility] 2018-01-27 00:00:00 Inpatient [facility] [id number] [facility] 2018-01-25 00:00:00 Inpatient [facility] [id number] [facility] 2019-01-09 00:00:00 2019-01-09 00:00:00 Outpatient [facility] [id number] [facility] 2018-10-16 12:41:00 2018-10-16 12:41:00 Registered Emergency Room [address] [facility] [id number] [facility] [place] 2018-09-05 00:00:00 2018-09-05 00:00:00 Outpatient [facility] [id number] [facility] 2018-06-19 00:00:00 2018-06-19 00:00:00 Outpatient [facility] [id number] [facility] 2018-05-27 18:25:00 2018-06-01 07:30:00 Discharged Inpatient [address] [facility] [id number] [facility] 2018-01-30 00:00:00 2018-01-30 00:00:00 Outpatient [facility] [id number] [facility] 2018-01-29 00:00:00 2018-01-29 00:00:00 Outpatient [facility] [id number] [facility] 2018-01-24 21:17:42 2018-01-24 21:17:42 Emergency [facility] [id number] [facility] 2018-01-24 20:24:34 2018-01-24 20:24:34 Emergency [facility] [id number] [facility] 2018-01-24 17:21:24 2018-01-24 17:21:24 Inpatient [facility] [id number] [facility] Results Test Description Test Time Test Comments Results Result Comments Source US ABDOMEN COMPLETE 2019-09-26 20:45:00 [place] [address] Patient Name: INDRA GALVAN JR MR #: [id number] : 1980 Age/Sex: 38/M Req #: [id number] Adm Physician: KHLOE BOX MD Ordered by: KERVIN FRYE, VIRGILIO FRYE Report #: [id number] Location: MED/SURG Room/Bed: [facility] Procedure: [id number] US/US ABDOMEN COMPLETE Exam Date: 09/26/19 Exam Time: 1704 REPORT STATUS: Signed EXAM: Complete Abdominal Ultrasound INDICATION: History of cirrhosis and anemia who presents with abdominal pain. COMPARISON: Multiple prior abdominal ultrasounds. CT abdomen/pelvis on 05/27/2018. TECHNIQUE: Transverse and longitudinal images of the upper abdomen were obtained. FINDINGS: Liver: Size: 19.5 cm in the right midclavicular line, enlarged Appearance: Diffusely echogenic with nodular contour. Mass: No focal masses Spleen: Size: 16.5 cm in length, enlarged Echogenicity: Normal Mass: No focal masses Gallbladder: Stones/Sludge: There is sludge and multiple gallstones. Wall: 0.3 cm Appearance: No pericholecystic fluid or hydrops. Sonographic Cooper's Sign: Negative Bile Ducts: Intrahepatic Ducts: No dilatation Extrahepatic Ducts: Common bile duct measures 0.4 cm, no dilatation Pancreas: Visualized portions of the pancreatic head, neck and proximal body are normal. Right Kidney: Size: 11.5 x 5.8 x 4.9 cm Echogenicity: Normal Parenchymal thickness: Normal Collecting System: No hydronephrosis Stone: None Cyst/Mass: None Left Kidney: Size: 11.1 x 5.4 x 5.5 cm Echogenicity: Normal Parenchymal thickness: Normal Collecting System: No hydronephrosis Stone: None Cyst/Mass: None Vessels: Aorta: Visualized portions are normal Inferior Vena Cava: Visualized portions are normal Main Portal Vein: 1.2 cm, normal size with hepatopetal flow. Free Fluid: There is trace ascites. No pleural effusion. IMPRESSION: 1. Hepatosplenomegaly with trace ascites. No focal hepatic mass identified. 2. Cholelithiasis without evidence of cholecystitis. LV hyper to kid LV hypo to spleen Elias hyper to LV Liver Male < 16 cm Female < 15 cm Kidneys: NL 9-12 cm, <13 cm Spleen < 12 cm CBD < 7 mm CHD < 4-5 mm GB Wall < 3 mm Hydrops > 10 x 5 cm PV < 13 mm Panc. duct 3-2-1 Signed by: Eb Hall MD on 09/26/2019 8:52 PM Dictated By: EB HALL MD 51 Transcribed By: CATERINA on 09/26/192051 COPY TO: VIRGILIO GALEANA [facility] SINGLE (PORTABLE) 2019-09-26 11:24:00 [place] [address] Patient Name: INDRA GALVAN JR MR #: [id number] : 1980 Age/Sex: 38/M Req #: [id number] Adm Physician: Ordered by: MARYLU KELSEY DO Report #: [id number] Location: ER Room/Bed: Procedure: [id number] DX/CHEST SINGLE (PORTABLE) Exam Date: 09/26/19 Exam Time: 1100 REPORT STATUS: Signed EXAMINATION: CHEST SINGLE (PORTABLE) INDICATION: Anemia COMPARISON: Chest CT 05/31/2018 FINDINGS: LINES/TUBES:Right IJ tunneled dialysis catheter terminates at the superior cavoatrial junction. LUNGS:The lungs are well-inflated. Mild left basilar opacity. PLEURA:No pleural effusion or pneumothorax. MEDIASTINUM:The cardiomediastinal silhouette appears normal in size and shape. BONES/SOFT TISSUES:No acute osseous injury. ABDOMEN:No free air under the diaphragm. IMPRESSION: Mild left basilar opacity, most likely subsegmental atelectasis. Signed by: Srinivasan Chiang MD on 09/26/2019 11:25 AM Dictated By: SRINIVASAN CHIANG MD 1125 Transcribed By: CATERINA on 09/26/19 1125 COPY TO: MARYLU KELSEY DO MR, ABDOMEN, WITH 2019-05-23 12:54:00 FINAL REPO RT MRI of the abdomen with and without contrast Clinical History: cirrhosis screen for HCC Technique: Multiplanar and multisequence MR images of the abdomen are obta ined before and after intravenous contrast administration. Contrast [...] compression fracture of T10 vertebral body. Signed: Gela Rodriguez MDReport Verified Date/Time: 05/23/2019 12:54:18 Reading Location: [facility] B1 C013X Ortho Consult Reading Room abdomen with/without IV contrast 2019-05-23 12:54:00 Interface, External Ris In - 05/23/2019 12:56 PM CDTFINAL REPORT MRI of the abdomen with and [...] compression fracture of T10 vertebral body. Signed: Gela Rodriguez MDReport Verified Date/Time: 05/23/2019 12:54:18 Reading Location: [facility] B1 C013X Ortho Consult Reading Room [facility] Basic Metabolic Panel 2019-05-23 09:34:00 Test Item Sodium (test code = 2951-2) 139 meq/L 136-145 Potassium (test code = 2823-3) 3.3 meq/L 3.5-5.1 L Chloride (test code = 2075-0) 100 meq/L 98-107 CO2 (test code = 8-9) 30 meq/L 22-29 H BUN (test code = 3094-0) 25 mg/dL 7-21 H Creatinine (test code = 2160-0) 2.87 mg/dL 0.57-1.25 H Glucose (test code = 2345-7) 112 mg/dL 70-105 H Calcium (test code = 06612-9) 8.5 mg/dL 8.4-10.2 EGFR (test code = 28668-8) 25 mL/min/1.73 sq m ESTIMATED GFR IS NOT ACCURATE CREATININE CLEARANCE IN PREDICTING GLOMERULAR FILTRATION RATE. ESTIMATED GFR IS NOT APPLICABLE FOR DIALYSIS PATIENTS. PHILLIP (test code = PHILLIP) Hvac R Tech ID - KAVONGSanantimekavitha moderately icte waldemar Lab Interpretation (test code = 63044-3) Abnormal [facility] METABOLIC [id number] 09:34:00* Test Item Value Reference Range Interpretation Comments SODIUM (BEAKER) (test code = 381) 139 meq/L 136-145 POTASSIUM (BEAKER) (test code = 379) 3.3 meq/L 3.5-5.1 L CHLORIDE (BEAKER) (test code = 382) 100 meq/L 98-107 CO2 (BEAKER) (test code = 355) 30 meq/L 22-29 H BLOOD UREA NITROGEN (BEAKER) (test code = 354) 25 mg/dL 7-21 H CREATININE (BEAKER) (test code = 358) 2.87 mg/dL 0.57-1.25 H GLUCOSE RANDOM (BEAKER) (test code = 652) 112 mg/dL 70-105 H CALCIUM (BEAKER) (test code = 697) 8.5 mg/dL 8.4-10.2 EGFR (BEAKER) (test code = 1092) 25 mL/min/1.73 sq m ESTIMATED GFR IS NOT ACCURATE CREATININE CLEARANCE IN PREDICTING GLOMERULAR FILTRATION RATE. ESTIMATED GFR IS NOT APPLICABLE FOR DIALYSIS PATIENTS. Hvac R Tech ID - PORSHAIANGSpecimen moderately ictericHepatic function [id number] 09:29:00* Test Item Value Reference Range Interpretation Comments Protein, Total (test code = 2885-2) 6.5 6.0- 8.3 gm/dL Albumin (test code = 16812-7) 3.4 g/dL 3.5-5 L Total Bilirubin (test code = 1974-2) 5.4 mg/dL 0.2-1.2 H Bilirubin, Direct (test code = 1967-7) 2.6 mg/dL 0.1-0.5 H Alkaline Phosphatase (test code = 6768-6) 200 U/L 40-150 H AST (test code = 1920-8) 46 U/L 5-34 H ALT (test code = 1742-6) 12 U/L 6-55 PHILLIP (test code = PHILLIP) Hvac R Tech ID - Kavon moderately icte waldemar Lab Interpretation (test code = 30470-6) [facility]normal [facility] [id number] 09:29:00* Test Item Value Reference Range Interpretation Comments TOTAL PROTEIN (BEAKER) (test code = 770) 6.5 gm/dL 6.0-8.3 ALBUMIN (BEAKER) (test code = 1145) 3.4 g/dL 3.5-5.0 L BILIRUBIN TOTAL (BEAKER) (test code = 377) 5.4 mg/dL 0.2-1.2 H BILIRUBIN DIRECT (BEAKER) (test code = 706) 2.6 mg/dL 0.1-0.5 H ALKALINE PHOSPHATASE (BEAKER) (test code = 346) 200 U/L 40-150 H AST (SGOT) (BEAKER) (test code = 353) 46 U/L 5-34 H ALT (SGPT) (BEAKER) (test code = 347) 12 U/L 6-55 Hvac R Tech ID - Kavon moderately ictericCBC with platelet count + automated [id number] 09:27:00* Test Item Value Reference Range Interpretation Comments WBC (test code = 6690-2) 7.3 3.5- 10.5 K/L RBC (test code = 789-8) 2.33 4.63- 6.08 M/L L MCHC (test code = 786-4) 33.2 32.3- 36.5 GM/DL L Hematocrit (test code = 4544-3) 22.0 % 40.1-51 L MCV (test code = 787-2) 94.4 fL 79-92.2 H MCH (test code = 785-6) 31.3 pg 25.7-32.2 RDW (test code = 788-0) 18.6 % 11.6-14.4 H Platelets (test code = 777-3) 94 150- 450 K/CU MM L MPV (test code = 14707-8) 8.4 fL 9.4-12.4 L nRBC (test code = 413) 0 0- 0 /100 WBC % Neutros (test code = 429) 69 % % Lymphs (test code = 430) 18 % % Monos (test code = 431) 9 % % Eos (test code = 432) 3 % % Baso (test code = 437) 1 % # Neutros (test code = 670) 5.03 1.78- 5.38 K/L # Lymphs (test code = 414) 1.31 1.32- 3.57 K/L L # Monos (test code = 415) 0.62 0.30- 0.82 K/L # Eos (test code = 416) 0.23 0.04- 0.54 K/L # Baso (test code = 417) 0.06 0.01- 0.08 K/L Immature Granulocytes-Relative (test code = 2801) 0 % 0-1 Lab Interpretation (test code = 22392-7) Abnormal [facility] W/PLT COUNT & AUTO [id number] 09:27:00* Test Item Value Reference Range Interpretation Comments WHITE BLOOD CELL COUNT (BEAKER) (test code = 775) 7.3 K/ L 3.5- 10.5 RED BLOOD CELL COUNT (BEAKER) (test code = 761) 2.33 M/ L 4.63-6 .08 L HEMOGLOBIN (BEAKER) (test code = 410) 7.3 GM/DL 13.7-17.5 L HEMATOCRIT (BEAKER) (test code = 411) 22.0 % 40.1-51.0 L MEAN CORPUSCULAR VOLUME (BEAKER) (test code = 753) 94.4 fL 79. 0-92.2 H MEAN CORPUSCULAR HEMOGLOBIN (BEAKER) (test code = 751) 31.3 pg 25.7-32.2 MEAN CORPUSCULAR HEMOGLOBIN CONC (BEAKER) (test code = 752) 33.2 GM/DL 32.3-36.5 RED CELL DISTRIBUTION WIDTH (BEAKER) (test code = 412) 18.6 % 11.6-14.4 H PLATELET COUNT (BEAKER) (test code = 756) 94 K/CU MM 150-450 L MEAN PLATELET VOLUME (BEAKER) (test code = 754) 8.4 fL 9.4-12 .4 L NUCLEATED RED BLOOD CELLS (BEAKER) (test code = 413) 0 /100 WBC 0 -0 NEUTROPHILS RELATIVE PERCENT (BEAKER) (test code = 429) 69 % LYMPHOCYTES RELATIVE PERCENT (BEAKER) (test code = 430) 18 % MONOCYTES RELATIVE PERCENT (BEAKER) (test code = 431) 9 % EOSINOPHILS RELATIVE PERCENT (BEAKER) (test code = 432) 3 % BASOPHILS RELATIVE PERCENT (BEAKER) (test code = 437) 1 % NEUTROPHILS ABSOLUTE COUNT (BEAKER) (test code = 670) 5.03 K/ L 1.78-5.38 LYMPHOCYTES ABSOLUTE COUNT (BEAKER) (test code = 414) 1.31 K/ L 1.32-3.57 L MONOCYTES ABSOLUTE COUNT (BEAKER) (test code = 415) 0.62 K/ L 0. 30-0.82 EOSINOPHILS ABSOLUTE COUNT (BEAKER) (test code = 416) 0.23 K/ L 0.04-0.54 BASOPHILS ABSOLUTE COUNT (BEAKER) (test code = 417) 0.06 K/ L 0. 01-0.08 IMMATURE GRANULOCYTES-RELATIVE PERCENT (BEAKER) (test code = 2801) 0 % 0-1 Prothrombin time/[id number] 09:19:00* Test Item Value Reference Range Interpretation Comments Protime (test code = 5902-2) 16.6 11.9- 14.2 seconds H INR (test code = 6301-6) 1.4 <=5.9 PHILLIP (test code = PHILLIP) Effective 07/24/2018: PT Refe rence Range ChangeNew: 11.9- 14.2 Previous: 11.7-14.7 RECOMMENDED COUMADIN/WARFARIN INR THERAPY RANGESSTANDARD DOSE: 2.0-3.0 Includes: PROPHYLAXIS for venous thrombosis, sys temic embolization; TREATMENT for venous thrombosis and/or pulmonary embolus.HIGH RISK: Target INR is 2.5-3.5 for patients wiht mechanical heart valves. Lab Interpretation (test code = 03495-8) Abnormal [facility]/[id number] 09:19:00* Test Item Value Reference Range Interpretation Comments PROTIME (BEAKER) (test code = 759) 16.6 seconds 11.9-14.2 H INR (BEAKER) (test code = 370) 1.4 <=5.9 Effective 07/24/2018: PT Reference Range ChangeNew: 11.9-14.2 Previous: 11.7-14. 7RECOMMENDED COUMADIN/WARFARIN INR THERAPY RANGESSTANDARD DOSE: 2.0-3.0 Include s: PROPHYLAXIS for venous thrombosis, systemic embolization; TREATMENT for venou s thrombosis and/or pulmonary embolus.HIGH RISK: Target INR is 2.5-3.5 for patie nts wiht mechanical heart valves.MISCELLANEOUS LAB [id number] 08:04:00* Test Item Value Reference Range Interpretation Comments SCAN RESULT (test code = 7943607) Treadmill tolerance(Non-Nuclear Treadmill)2019-05-15 22:24:56Interface, External Ris In - 05/15/2019 10:25 PM CDTProtocol Name Regadenoson Time In Exercise Phase 00:01:00 Max. Systolic BP 86 mmHgMax Diastolic BP 39 mmHgMax Heart Rate 89 BPMMax Predicted Heart Rate 180 BPMReason For Termination Predetermined end point Reason for Test Cad Evaluation Target HR Formula (220 - Age)*100% Arrhythmias none Resting ECG Normal sinus rhythm ST Changes No Significant C hanges Overall Impression Indeterminate due to pharmacological stress Chest Pain none HR Response To Exercise BP Response To Exercise No cardiac medsConfirmed by fellow Leeann Amador ([id number]) on 05/09/2019 3:07:42 PMConfirmed by MD Sera, Hi pinedo ([id number]) on 05/15/2019 10:24:47 [facility] METABOLIC [id number] 11:48:00* Test Item Value Reference Range Interpretation Comments SODIUM (BEAKER) (test code = 381) 138 meq/L 136-145 POTASSIUM (BEAKER) (test code = 379) 3.5 meq/L 3.5-5.1 CHLORIDE (BEAKER) (test code = 382) 99 meq/L 98-107 CO2 (BEAKER) (test code = 355) 28 meq/L 22-29 BLOOD UREA NITROGEN (BEAKER) (test code = 354) 23 mg/dL 7-21 H CREATININE (BEAKER) (test code = 358) 3.43 mg/dL 0.57-1.25 H GLUCOSE RANDOM (BEAKER) (test code = 652) 105 mg/dL 70-105 CALCIUM (BEAKER) (test code = 697) 8.6 mg/dL 8.4-10.2 EGFR (BEAKER) (test code = 1092) 20 mL/min/1.73 sq m ESTIMATED GFR IS NOT ACCURATE CREATININE CLEARANCE IN PREDICTING GLOMERULAR FILTRATION RATE. ESTIMATED GFR IS NOT APPLICABLE FOR DIALYSIS PATIENTS. Hvac R Tech ID Tanja DASILVA MSpecimen slightly ictericBILIRUBIN, [id number] 11:32:00* Test Item Value Reference Range Interpretation Comments BILIRUBIN DIRECT (BEAKER) (test code = 706) 2.0 mg/dL 0.1-0.5 H HEPATIC FUNCTION [id number] 11:32:00* Test Item Value Reference Range Interpretation Comments TOTAL PROTEIN (BEAKER) (test code = 770) 6.6 gm/dL 6.0-8.3 ALBUMIN (BEAKER) (test code = 1145) 3.4 g/dL 3.5-5.0 L BILIRUBIN TOTAL (BEAKER) (test code = 377) 3.4 mg/dL 0.2-1.2 H BILIRUBIN DIRECT (BEAKER) (test code = 706) 2.0 mg/dL 0.1-0.5 H ALKALINE PHOSPHATASE (BEAKER) (test code = 346) 142 U/L 40-150 AST (SGOT) (BEAKER) (test code = 353) 28 U/L 5-34 ALT (SGPT) (BEAKER) (test code = 347) 8 U/L 6-55 Hvac R Tech ID Tanja DASILVA MSpecimen slightly ictericCBC W/PLT COUNT & AUTO [id number] 11:30:00* Test Item Value Reference Range Interpretation Comments WHITE BLOOD CELL COUNT (BEAKER) (test code = 775) 6.1 K/ L 3.5- 10.5 RED BLOOD CELL COUNT (BEAKER) (test code = 761) 2.40 M/ L 4.63-6 .08 L HEMOGLOBIN (BEAKER) (test code = 410) 7.2 GM/DL 13.7-17.5 L HEMATOCRIT (BEAKER) (test code = 411) 22.8 % 40.1-51.0 L MEAN CORPUSCULAR VOLUME (BEAKER) (test code = 753) 95.0 fL 79. 0-92.2 H MEAN CORPUSCULAR HEMOGLOBIN (BEAKER) (test code = 751) 30.0 pg 25.7-32.2 MEAN CORPUSCULAR HEMOGLOBIN CONC (BEAKER) (test code = 752) 31.6 GM/DL 32.3-36.5 L RED CELL DISTRIBUTION WIDTH (BEAKER) (test code = 412) 19.5 % 11.6-14.4 H PLATELET COUNT (BEAKER) (test code = 756) 107 K/CU MM 150-450 L MEAN PLATELET VOLUME (BEAKER) (test code = 754) 9.4 fL 9.4-12 .4 NUCLEATED RED BLOOD CELLS (BEAKER) (test code = 413) 0 /100 WBC 0 -0 NEUTROPHILS RELATIVE PERCENT (BEAKER) (test code = 429) 69 % LYMPHOCYTES RELATIVE PERCENT (BEAKER) (test code = 430) 16 % MONOCYTES RELATIVE PERCENT (BEAKER) (test code = 431) 8 % EOSINOPHILS RELATIVE PERCENT (BEAKER) (test code = 432) 5 % BASOPHILS RELATIVE PERCENT (BEAKER) (test code = 437) 1 % NEUTROPHILS ABSOLUTE COUNT (BEAKER) (test code = 670) 4.25 K/ L 1.78-5.38 LYMPHOCYTES ABSOLUTE COUNT (BEAKER) (test code = 414) 1.01 K/ L 1.32-3.57 L MONOCYTES ABSOLUTE COUNT (BEAKER) (test code = 415) 0.50 K/ L 0. 30-0.82 EOSINOPHILS ABSOLUTE COUNT (BEAKER) (test code = 416) 0.30 K/ L 0.04-0.54 BASOPHILS ABSOLUTE COUNT (BEAKER) (test code = 417) 0.05 K/ L 0. 01-0.08 IMMATURE GRANULOCYTES-RELATIVE PERCENT (BEAKER) (test code = 2801) 1 % 0-1 PROTHROMBIN TIME/[id number] 11:25:00* Test Item Value Reference Range Interpretation Comments PROTIME (BEAKER) (test code = 759) 16.6 seconds 11.9-14.2 H INR (BEAKER) (test code = 370) 1.4 <=5.9 Effective 07/24/2018: PT Reference Range ChangeNew: 11.9-14.2 Previous: 11.7-14. 7RECOMMENDED COUMADIN/WARFARIN INR THERAPY RANGESSTANDARD DOSE: 2.0-3.0 Include s: PROPHYLAXIS for venous thrombosis, systemic embolization; TREATMENT for venou s thrombosis and/or pulmonary embolus.HIGH RISK: Target INR is 2.5-3.5 for patie nts wiht mechanical heart valves.Body fluid culture + gram [id number] 15:44:00* Test Item Value Reference Range Interpretation Comments Result (test code = 6463-4) No growth Gram Stain Result (test code = 1123) No organisms seen [facility]AM [id number] 15:44:00 * Test Item Value Reference Range Interpretation Comments CULTURE (BEAKER) (test code = 1095) No growth GRAM STAIN RESULT (BEAKER) (test code = 1123) 1+ White blood cells seen GRAM STAIN RESULT (BEAKER) (test code = 52759) No organisms seen [id number] 06:38:00* Test Item Value Reference Range Interpretation Comments Magnesium (test code = 75121-0) 1.9 mg/dL 1.6-2.6 PHILLIP (test code = PHILLIP) Hvac R Tech ID - ULYSSES M Lab Interpretation (test code = 54773-7) Normal [facility] 06:38:00* Test Item Value Reference Range Interpretation Comments Phosphorus (test code = 2777-1) 3.4 mg/dL 2.3-4.7 PHILLIP (test code = PHILLIP) Hvac R Tech ID - ULYSSES M Lab Interpretation (test code = 85008-9) Normal [facility]OS[facility]US2020-03-14 06:38:00* Test Item Value Reference Range Interpretation Comments PHOSPHORUS (BEAKER) (test code = 604) 3.4 mg/dL 2.3-4.7 Hvac R Tech ID - ULYSSES [id number] 06:38:00* Test Item Value Reference Range Interpretation Comments MAGNESIUM (BEAKER) (test code = 627) 1.9 mg/dL 1.6-2.6 Hvac R Tech ID - ULYSSES MBlood Culture - Routine (Left Venipuncture)2019-05-09 20:01:00* Test Item Value Reference Range Interpretation Comments Result (test code = 6463-4) No growth in 5 days [facility] [id number] 20:01:00* Test Item Value Reference Range Interpretation Comments CULTURE (BEAKER) (test code = 1095) No growth in 5 days BLOOD [id number] 20:00:00* Test Item Value Reference Range Interpretation Comments CULTURE (BEAKER) (test code = 1095) No growth in 5 days [id number] 16:28:00* Test Item Value Reference Range Interpretation Comments Case Report (test code = 104) Medical Cytology Report Case: [id number] Authorizing Provider: Robbie New MD Collected: 05/07/2019 1920 Ordering Location: [address] Received: 05/08/2019 1445 Pathologist: Iman Yang MD Specimen: Pericardial DIAGNOSIS (test code = 3220) [file] XGZzMjRccWxcbGFuZzEwMzNcaGljaFxmMVxkYmNoXG XaQUanR9hvOaDqZrTyZqz5XMCapLLdGOKqYie9UUZpjPKeDQEEjNvffY3oIHCgtRcqsJ6scFQ1QDNlrw YtkEQFxT0lYEOMtV7sRnD4OgUxQsJ6JDTmZSzhiHUkpO5= CPT Code(s) (test code = 3357) f0cifWAoCBFofUXqZyOvUTOlGUWje3tyZWSeyHOyGdGtVsTkPqAyJlaqpDUrBEMjBcXvt7wcp960zXZw z0wpFMDjQnL5jRLzVIQvaFPeT534l6onp0qsdaFwcAJ3BAOzHZU0FInssnCianN0EGattYPuLvF6MLve jnTmWBizcpOblxMkJyz4LIKqG081NVW8hRabf1opLZ W4SEZbCQFyAtLhOx8srVHdU365IXJjGRPAJLOtgRp2VSDxqeExidRuwFMEs521B016r1jtADLbwjReyX nLcibvy0siH943ZPXasQVxaoFtZqLjIAAbwJOxsGH3UECiKI7ybksvOsBiYS0aeileVcCyES8gvnc7Gz YtLC4ujhfuNrUqOFbkMZIxdoryWUVaw0MkwtthAF3r G4Oxm5K5bX6ycTQuIRKneHUoQwYkXBIyry2deDMhXHrfr0ChPRY3wrK4rMEpgXSxFNIfUS47Qqnca2Qd NibuPQX8WWZhtiMcz4Tsv0qrKlPtmcRnM0voF1YvETWaSITnUYBtCzJsxxBoq2Bcx8UuoRWwpQz7v0ol FZEeCCFyqTexp9kzMVE5VTHlU4M2gFLdl6hrZYofAK YdeND3lnwlVQxkGEBdgjT9rxtiERuzKRTjcDX4uqtxCGdgKIQrEgL5eqiuMPplFCLpVQC3IVgyp936LW Y6DSarGoxnZJlqQSEksvPaqqNooSbmBPWxWSBeADhmCNZfAHkiRFNiOJFdYjDtzWdvfJjzhE1pSgSkSt SyLQvgXM6dADQoV8zgaZIjABPnPRVrW2oqXtVlvF8gdCmgNXbavxZjFSg1MXE4BHVxxi5= CLINICAL DATA (test code = 3355) q4cjnFWkTOFtfWVcPxPnAHEoCVEni2xyGRAggEBsYyGzQtHqDfHvJxnbiOGtTYCnCiAdw4lwm441rAMj z9azZJMvSoV5sNEuAFVbcCBnD842m6fct1mmuaAblJC7GUZlBPC1YYpapwKppyT9ZRuobOJxKcS0NZtv lfOzNGkufxAiuqPoCxk8YXGfN390ZJZ7bMvgf9neVH B3OCTnDNWaXeMrCd1oyGDzW845VECaOBNCAFEszNr0DJFdpsNgudNoyJIJc838S155q5fcZGVfxwNftC vSxmxot2mdY120FMPqrQBpwoVbRfBcXBXisZSzkRC6WYCwJZ0ukizyQrIrHE7zrivbQbKhTF3vzqm7Lw YuBB0ppajgOsXiQHsrNMCjruzmTOVgc1VxwwjkOI4u F5Vpk5U9pC7kfVXhMJCbaSGmScJuEIEssu8bpXVnYSkge2QvXXR5pcC0uVVgsXGxRDRdHJ53Vxezr8Hj FwidKPX5OPBuxzKfs0Lqz7drLuVxnbAdB9niH8FzQYIlQNDgBUJbKiOihwUqp7Mbf4KsvWWjyTs3o0vi FWKdBEDcvBbdw4btNLF4WADqC1V8dOAuo0mhVKdjKY JycFJ6sbrvWYguVNFhvjU5hgudZPphUDOolIU3xyyyBJloMOXzFhO2kjisQAkbKYEeWUX3XHrfz325HS T0BRapPchuLUylKQIqnyDlmgLkrSfxTDAuMJToRBpsCVDoJQttYAMoCHYnGgHofTkczOassW9uNhAgVx VvGFdpKY5hUNSvA2pkiTAuNYPcEKDjX1rfXaZcoG3h jXjyMRshofJkEZKxzvemFYFohLSeQRNuAoXtlD7xNAZenHLurF1elQXcvJUcjY== SPECIMEN SOURCE (test code = 3377) z6eocIVxAZXroFTkDmQoLEOtHQDyr6zsQLAorAOySaCpDvXgRnEfBytmxFFzDMReXdZin8tlr363cSHi l1wvLZWlCqK8nJLcYDWpyBGrE662s6rkb8xqsmNbuRO0ZCCrILX0RSxaisJrifR4YGghaXVyDwE3CUda bhRcOGglcmQxzfByWmg5OIZzV242FTR8uHgti3vrTH C5FWKtONRpFzSnKk2mfUUmX628RPVqEGSQFVNuhQp9CUBtmhRqzvPooDUPb398J981a6vjQYTwyqIukZ vGoryyh9mdT240YNZupVVdxiVrQvIvATXorUDoqMO8LSApYO3pvqhsTtByHT0djuexBwFpDF1uzow5Jw ZyCF1hfnssZhCcOQygVVXydxcpDQYpc5OqzyczFO0f J2Uin7O3wN0gsEXwJNQvzQWcKuEgRMGvhy6zbZOrQSvmo0JuXXK1szZ1zXVguDZaGPNuNI12Cxixv8Mr ZprbTGZ3DMZmmrHxy4Gcz5hoThWrovNtO3spT2RqOESwHLGrVRFkFtQchsBac8Hlq9BvqVPuvDo7q7gr YSEvIYXtpZyyb8obTWH1FQAcW0A5gCFxt5gbMIkhDJ QfuAC9dqhkHAgnHHCokfE3nubjOBgkKKLyzOR8bczuFNgvCBBpZrK1wiriIXviMRSfXBQ4DVvlk385SM B3EOwyEytjWYxqPVVpioDbwaModZoxJSMwXBVcGWvuMIWdOMwoBNKyYSSkSlDwqUjccVkobN9kQuQxUp GpFBmyBW6qSNZmF3vxjRKnKUUrCLGwF2ydTbYcdY6n aFxmMFxmczIwIFBFUklDQVJESUFMIEZMVUlEXHBhcn0= GROSS DESCRIPTION (test code = 3366) r0ljbPCiYLFufTRvVpVfWBWlTXKqh1ytNRGhxYGkWhDwOiZgYeOvZevkbVIlTVLtVxMyo3slz643oRIz s9qgEHNqYfC2iRUiINOwaSJxS612BAThBGzqc4afj0HnOWCxmCJco7A0KJLRilowpPr9zOfuU16hn5U3 HjhkE9jwUDRhZIDeV9ZrAO3dBAXsYhf9CUN1GXY9ON DoWGTdP6HrHT7pYVDhhWZjJDe3u9bqdLvpWDNuZKS2j1tuFVymomDeMS3bqo2lwRw4v7yhpsOfUQFaDY ArpRILMGBqI1NfpSxpTa5wdNp0hFyjYlllZEB5Rfv6JQ3omn59rud4gTawAIDnlcjzVqC9AXdbCUGnfc cfTNn0FIhnIJJccLgoUNzdCVZvxfeoCKivJMFwbVtp VYpbOBQxSwidRMkuHZFnKZZ1GJcpv619NPH9FQgyj7vex2sjmPCjSji6UTYmBcGdLygaQJrki2Fvw4fh KFWiqe9fCCQ1aKVufXtxh1S3kWRlOARppXZqyeGcWQQpPqC7GQxeLE1gzi19NXWzOTT3iy6kvHOftBlq lbVihKSjEPjmL7WjDVUym602LNWvN9RnJJRyf1D9oz GbIyZnPJUfhSB9dfQ3PXFgOIo5sZNoneE8opXveBHjM5hpyV30ThRikRHnL4BudX37InLlzWHuN1FpgP 81NrRtbKLkE6OitI01HhFuaOHoMHVsgWHmHr4sfNEwuPOft8RbjXXgQDfoP26uh859LADmakBfH0zruR QwtfgaqUImwytlSWwkgoM4PEHjDLNaPQmhRDIcGATb AxQjbQAxFcPnUvKobQdutZflRKykOuMxHBYaEQdgO2zxZzJdHrIaEiO1NBZluZzsONOap93ydIDadUCo VKqzUVZwxLJsr5XewnBdzADrKFLsjTycS3OjQXjpNYOxZWStPAVacoNZDBNasMRdTOnnCUAfTzKtMAQs cn0= STATEMENT OF ADEQUACY (test code = 2757) Satisfactory Gross assessment was performed at (test code = 2777) [facility], Department of Pathology, [address] [place] [address], Technical component was performed at (test code = 2778 ) [facility], Department of Pathology, [address] [place] [address], Professional component was performed at (test code = 2 779) [facility], Department of Pathology, [address] [place] [address], [facility] 16:28:00Medical Cytology Report Case: [id number] Authorizing Provider: Robbie New MD Collected: 05/07/20191919 Ordering Location: [place] [address] CCU Received: 05/08/2019 1445 Pathologist: Iman Yang MD Specimen: Pericardial PERICARDIAL FLUID (CYTOSPINS): - NEGATIVE FOR MALIGNANCY Signing Pathologist Direct Phone Line: [phone] signed by Iman Yang MD on 05/09/2019 at 4:28 [id number] effusion, cirrhosisPERICARDIAL RSQRW428 mls bloody fluid; 4 cytospinsCollected: 031 120Received: [id number] [facility], Department of P athology, [address] [place] [address], [facility], Department of Pathology, [address] [place] [address] [phone], [facility], Department of [facility], [address] [place] [address], MEL/CT, CARDIAC PERF REST AND [id number] 16:05:00Reason for exam:->CADFINAL REPORT PROCEDURE: MYOCARDIAL PERFUSION PET IMAGING (Rest/Stress)CPT CODE: 04701 INDICATION: Assess symptoms/risk factors of possible CAD CARDIOVASCULAR PROFILE:CAD History: NoneRisk Factors: Hypertension, ESRDBMI: 26.5 STRESS PROTOCOL:Pharmacologic stress was achieved with a 10-second intravenous infusion of regadenoson 0.4 mg. The radiopharmaceutical was administered 30 seconds after the start of the regadenoson infusion. IMAGING PROTOCOL:Limited low-dose CT imaging was performed for attenuation correction. 40.2 mCi of Rb-82 chloride was injected intravenously at rest, and gated PET images were obtained. Then, 40.1 mCi of Rb-82 chloride was injected intravenously at peak stress, and gated PET images were obtained. Image quality is good. REST FINDINGS:HR: 78/minBP: 91/44 mmHgPrelim. EKG: Normal sinus rhythm.Perfusion: Normal.Wall Motion: Normal (LVEF >70%).LV Volume: Normal.RV Volume: Normal. STRESS FINDINGS:HR: 89/min (49% of MPHR)BP: 86/39 mmHgPrelim. EKG: No ischemic changes.Symptoms: Shortness of breath (treatment not required).Perfusion: Normal.Wall Motion: Normal (LVEF > 70%).LV Volume: Not significantly changed from rest. IMPRESSION:1. Normal study. 2. Normal myocardial perfusion. 3. Normal resting LVEF, which does not deteriora te with pharmacologic stress.4. Normal extracardiac tracer distribution.5. There is no prior study for comparison. Signed: Pedro Pablo Montero MDReport Verified Date/ Time: 05/09/2019 16:05:35 Reading Location: [address] [facility] Reading R o Myocardial Perfusion Pet/CT (Rest & Stress)2019-05-09 16:05:00Interface, External Ris In - 05/09/2019 4:07 PM CDTFINAL REPORT PROCEDURE: MYOCARDIAL PERFUSION PET IMAGING (Rest/Stress)CPT CODE: 61869 INDICATION: Assess symptoms/risk factors of possible CAD CARDIOVASCULAR PROFILE :CAD History: NoneRisk Factors: Hypertension, ESRDBMI: 26.5 STRESS PROTOCOL:Phar macologic stress was achieved with a 10-second intravenous infusion of regadenos on 0.4 mg. The radiopharmaceutical was administered 30 seconds after the start o f the regadenoson infusion. IMAGING PROTOCOL:Limited low-dose CT imaging was per formed for attenuation correction. 40.2 mCi of Rb-82 chloride was injected intra venously at rest, and gated PET images were obtained. Then, 40.1 mCi of Rb-82 ch loride was injected intravenously at peak stress, and gated PET images were obta ined. Image quality is good. REST FINDINGS:HR: 78/minBP: 91/44 mmHgPrelim. EKG: Normal sinus rhythm.Perfusion: Normal.Wall Motion: Normal (LVEF >70%).LV Volume: Normal.RV Volume: Normal. STRESS FINDINGS:HR: 89/min (49% of MPHR)BP: 86/39 mmHgPrelim. EKG: No ischemic changes.Symptoms: Shortness of breath (treatment not required).Perfusion: Normal.Wall Motion: Normal (LVEF >70%).LV Volume: Not significantly changed from rest. IMPRESSION:1. Normal study.2. Normal myocardial perfusion. 3. Normal resting LVEF, which does not deteriorate with pharmacologic stress.4. Normal extracardiac tracer distribution.5. There is no prior study for comparison. Signed: Pedro Pablo Montero MDReport Verified Date/Time: 05/09/2019 16:05:35 Reading Location: [address] [facility] Reading [facility] [id number] 06:54:00* Test Item Value Reference Range Interpretation Comments Protein, Total (test code = 2885-2) 6.1 6.0- 8.3 gm/dL Specimen slightly hemolyzed Albumin (test code = 35987-5) 2.9 g/dL 3.5-5 L Specimen slightly hemolyzed Alkaline Phosphatase (test code = 6768-6) 116 U/L 40-150 Total Bilirubin (test code = 1975-2) 4.1 mg/dL 0.2-1.2 H Specimen slightly hemolyzed Sodium (test code = 2951-2) 131 meq/L 136-145 L Potassium (test code = 2823-3) 3.9 meq/L 3.5-5.1 Specimen slightly hemolyzed Chloride (test code = 2075-0) 99 meq/L 98-107 CO2 (test code = 8-9) 23 meq/L 22-29 BUN (test code = 3094-0) 22 mg/dL 7-21 H Creatinine (test code = 2160-0) 4.22 mg/dL 0.57-1.25 H Specimen slightly hemolyzed Glucose (test code = 2345-7) 108 mg/dL 70-105 H Calcium (test code = 24011-1) 8.1 mg/dL 8.4-10.2 L AST (test code = 1920-8) 30 U/L 5-34 Spe cimen slightly hemolyzed ALT (test code = 1742-6) 8 U/L 6-55 Spe cimen slightly hemolyzed EGFR (test code = 54051-2) 16 mL/min/1.73 sq m ESTIMATED GFR IS NOT ACCURATE CREATININE CLEARANCE IN PREDICTING GLOMERULAR FILTRATION RATE. ESTIMATED GFR IS NOT APPLICABLE FOR DIALYSIS PATIENTS. PHILLIP (test code = PHILLIP) Hvac R Tech ID - ULYSSES MSpecimen slightly icteric Lab Interpretation (test code = 22296-8) Abnormal [facility] [id number] 06:54:00* Test Item Value Reference Range Interpretation Comments TOTAL PROTEIN (BEAKER) (test code = 770) 6.1 gm/dL 6.0-8.3 Specimen slightly hemolyzed ALBUMIN (BEAKER) (test code = 1145) 2.9 g/dL 3.5-5.0 L Specimen slightly hemolyzed ALKALINE PHOSPHATASE (BEAKER) (test code = 346) 116 U/L 40-150 BILIRUBIN TOTAL (BEAKER) (test code = 377) 4.1 mg/dL 0.2-1.2 H Specimen slightly hemolyzed SODIUM (BEAKER) (test code = 381) 131 meq/L 136-145 L POTASSIUM (BEAKER) (test code = 379) 3.9 meq/L 3.5-5.1 Specimen slightly hemolyzed CHLORIDE (BEAKER) (test code = 382) 99 meq/L 98-107 CO2 (BEAKER) (test code = 355) 23 meq/L 22-29 BLOOD UREA NITROGEN (BEAKER) (test code = 354) 22 mg/dL 7-21 H CREATININE (BEAKER) (test code = 358) 4.22 mg/dL 0.57-1.25 H Specimen slightly hemolyzed GLUCOSE RANDOM (BEAKER) (test code = 652) 108 mg/dL 70-105 H CALCIUM (BEAKER) (test code = 697) 8.1 mg/dL 8.4-10.2 L AST (SGOT) (BEAKER) (test code = 353) 30 U/L 5-34 Specimen slightly hemolyzed ALT (SGPT) (BEAKER) (test code = 347) 8 U/L 6-55 Specimen slightly hemolyzed EGFR (BEAKER) (test code = 1092) 16 mL/min/1.73 sq m ESTIMATED GFR IS NOT ACCURATE CREATININE CLEARANCE IN PREDICTING GLOMERULAR FILTRATION RATE. ESTIMATED GFR IS NOT APPLICABLE FOR DIALYSIS PATIENTS. Hvac R Tech ID Tanja ARORA MSpecimen slightly ictericCBC W/PLT COUNT & AUTO DIFFERENTIAL 2019-05-09 06:53:00* Test Item Value Reference Range Interpretation Comments WHITE BLOOD CELL COUNT (BEAKER) (test code = 775) 8.9 K/ L 3.5- 10.5 RED BLOOD CELL COUNT (BEAKER) (test code = 761) 2.49 M/ L 4.63-6 .08 L HEMOGLOBIN (BEAKER) (test code = 410) 7.3 GM/DL 13.7-17.5 L HEMATOCRIT (BEAKER) (test code = 411) 23.2 % 40.1-51.0 L MEAN CORPUSCULAR VOLUME (BEAKER) (test code = 753) 93.2 fL 79. 0-92.2 H MEAN CORPUSCULAR HEMOGLOBIN (BEAKER) (test code = 751) 29.3 pg 25.7-32.2 MEAN CORPUSCULAR HEMOGLOBIN CONC (BEAKER) (test code = 752) 31.5 GM/DL 32.3-36.5 L RED CELL DISTRIBUTION WIDTH (BEAKER) (test code = 412) 21.4 % 11.6-14.4 H PLATELET COUNT (BEAKER) (test code = 756) 202 K/CU MM 150-450 MEAN PLATELET VOLUME (BEAKER) (test code = 754) 9.7 fL 9.4-12 .4 NUCLEATED RED BLOOD CELLS (BEAKER) (test code = 413) 0 /100 WBC 0 -0 NEUTROPHILS RELATIVE PERCENT (BEAKER) (test code = 429) 62 % LYMPHOCYTES RELATIVE PERCENT (BEAKER) (test code = 430) 15 % MONOCYTES RELATIVE PERCENT (BEAKER) (test code = 431) 15 % EOSINOPHILS RELATIVE PERCENT (BEAKER) (test code = 432) 6 % BASOPHILS RELATIVE PERCENT (BEAKER) (test code = 437) 1 % NEUTROPHILS ABSOLUTE COUNT (BEAKER) (test code = 670) 5.54 K/ L 1.78-5.38 H LYMPHOCYTES ABSOLUTE COUNT (BEAKER) (test code = 414) 1.30 K/ L 1.32-3.57 L MONOCYTES ABSOLUTE COUNT (BEAKER) (test code = 415) 1.30 K/ L 0. 30-0.82 H EOSINOPHILS ABSOLUTE COUNT (BEAKER) (test code = 416) 0.56 K/ L 0.04-0.54 H BASOPHILS ABSOLUTE COUNT (BEAKER) (test code = 417) 0.06 K/ L 0. 01-0.08 IMMATURE GRANULOCYTES-RELATIVE PERCENT (BEAKER) (test code = 2801) 1 % 0-1 [id number] 06:50:00* Test Item Value Reference Range Interpretation Comments MAGNESIUM (BENEETU) (test code = 627) 2.1 mg/dL 1.6-2.6 Specimen slightly hemolyzed Hvac R Tech ID - ULYSSES [id number] 06:50:00* Test Item Value Reference Range Interpretation Comments PHOSPHORUS (BEAKER) (test code = 604) 3.4 mg/dL 2.3-4.7 Specimen slightly hemolyzed Hvac R Tech ID - ULYSSES MLimited 2D [id number] 13:37:26Ejection FractionSLEH ECHO HEARTLAB MKCKESSON CPACSInterface, External Ris In - 05/08/2019 1:37 PM CDTTransthoracic Echocardiography Report (TTE) Demographics Patient Name INDRA GALVAN Date of Study 05/08/2019 YAN CORDERO Gender Male Visit Number [id number] Race Unknown Room Number 6213 Number Date of 1980 Referring Physician ROBBIE NEW Age 38 year(s) Investment Banking Associate Renny Yepez Corporate Quality Manager Nick Navarro I nterpreting Brandy Jackson MD Procedure Type of Study TTE procedure:LIMITED 2D ECHOCARDIOG FANNY (STAT) Indications:Suspected Pericardial conditions.Clinical HistoryHGB 8.0H CT 25.0 %ALCOHOL ABUSEANEMIAHTNESRDOBESITHYTRACHEOSTOMY 2018Height: 71 inches We ight: 80.74 kg (178 lbs) BSA: 2.01 m^2 BMI: 24.83 kg/m^2HR: 82 bpm BP: 95/61 mmH g Summary Limited study for a follow up pericardiocentesis. Trivial to small re sidual pericardial effusion noted. Signature Findings Technical Quality: Technically adequate e xam. Left Ventricle Normal left ventricular chamber size. Normal wall thickness. Normal overall left ventricular systolic function. No apparent segmental wall motion abnormalities. Estimated LVEF by qualitative assessment is normal (>60%) . Left Atrium LA size is xafk-bf-nachzljbyt enlarged . Right Ventricle Normal right ventricle [...] Ao Root S of Yasmin.: 3.23 cm [facility] W/Doppler(CW/PW/Color)2019-05-08 09:47:52Ejection FractionSLEH ECHO HEARTLAB MKCKESSON CPACSInterface, External Ris In - 05/08/2019 9:48 AM CDTTransthoracic Echocardiography Report (TTE) Demographics Patient Name INDRA GALVAN Date of Study 05/07/2019 YAN CORDERO Gender Male Visit Number [id number] Race Unknown Room Number 6213 Number Date of 1980 Referring Robbie New MD Physician Age 38 year(s) Investment Banking Associate Aneudy Jerez Interpreting Vic Caruso Physician Fellow Indra Murry MD Procedure Type of Study TTE procedure:2DECHO W DOPPLER(CW/PW/COLOR) (STAT) Indications:Pericardiocentesis.Clinical HistoryHGB 7.4HCT 23.3 %ETOH ABUSE, ALCOHOLIC HEPATITIS, ESRD, FATTY LIVER, HX OF HTN, OBESITY, SKINRASH, HX OF RESPIRATORY FAILUREPERICARDIOCENTESIS 600 ml drainedHeight: 71 inches Weight: 83.01 kg (183 lbs) BSA: 2.03 m^2 BMI: 25.52 kg/m^2HR: 84 bpm BP: 87/51 mmHg Summary Limited TTE for pericardiocentesis. Physicians aware of imaging. A known moderate-large circumferential pericardial effusion is present. noted intra pericardial bubbles injection during the procedure. Successful perica rdiocentesis with small residual effusion. Signature Findings Left Ventricle All of the LV seg ments contract normally . Global LV systolic function [...] A moderate-large circumferential pericardial effusion is present. [facility] CenterManual [id number] 07:53:00* Test Item Value Reference Range Interpretation Comments % Neutros (test code = 2816) 74 % % Lymphs (test code = 2817) 12 % % Monos (test code = 2818) 9 % % Eos (test code = 2819) 2 % % Baso (test code = 2820) 3 % # Neutros (test code = 2830) 8.66 K/ul 1.78-5.38 H # Lymphs (test code = 2831) 1.40 K/ul 1.32-3.57 # Monos (test code = 2832) 1.05 K/uL 0.3-0.82 H # Eos (test code = 2834) 0.23 K/uL 0.04-0.54 # Baso (test code = 2835) 0.35 K/uL 0.01-0.08 H Total Counted (test code = 1351) 100 Platelet Morphology (test code = 486) Normal Toxic Granulation (test code = 771) Present Polychromasia (test code = 478) 2+ moderate Hypochromia (test code = 963) 1+ few Anisocytosis (test code = 961) 1+ few Macrocytes (test code = 964) 1+ few Poikilocytes (test code = 966) 1+ few All Cells (test code = 474) 1+ few Artifact (test code = 3432) Present Platelet Conc (test code = 3438) Adequate PHILLIP (test code = PHILLIP) Hvac R Tech ID - Ivonne Espinal comments: Slide comm ents: Lab Interpretation (test code = 25476-1) Abnormal [facility] W/PLT COUNT & AUTO [id number] 07:53:00* Test Item Value Reference Range Interpretation Comments WHITE BLOOD CELL COUNT (BEAKER) (test code = 775) 11.7 K/ L 3.5- 10.5 H RED BLOOD CELL COUNT (BEAKER) (test code = 761) 2.70 M/ L 4.63-6 .08 L HEMOGLOBIN (BEAKER) (test code = 410) 8.0 GM/DL 13.7-17.5 L HEMATOCRIT (BEAKER) (test code = 411) 25.0 % 40.1-51.0 L MEAN CORPUSCULAR VOLUME (BEAKER) (test code = 753) 92.6 fL 79. 0-92.2 H MEAN CORPUSCULAR HEMOGLOBIN (BEAKER) (test code = 751) 29.6 pg 25.7-32.2 MEAN CORPUSCULAR HEMOGLOBIN CONC (BEAKER) (test code = 752) 32.0 GM/DL 32.3-36.5 L RED CELL DISTRIBUTION WIDTH (BEAKER) (test code = 412) 21.9 % 11.6-14.4 H PLATELET COUNT (BEAKER) (test code = 756) 199 K/CU MM 150-450 MEAN PLATELET VOLUME (BEAKER) (test code = 754) 9.9 fL 9.4-12 .4 NUCLEATED RED BLOOD CELLS (BEAKER) (test code = 413) 0 /100 WBC 0 -0 (CELLAVISION MANUAL DIFF)2019-05-08 07:53:00* Test Item Value Reference Range Interpretation Comments NEUTROPHILS - REL (CELLAVISION)(BEAKER) (test code = 2816) 74 % LYMPHOCYTES - REL (CELLAVISION)(BEAKER) (test code = 2817) 12 % MONOCYTES - REL (CELLAVISION)(BEAKER) (test code = 2818) 9 % EOSINOPHILS - REL (CELLAVISION)(BEAKER) (test code = 2819) 2 % BASOPHILS - REL (CELLAVISION)(BEAKER) (test code = 2820) 3 % NEUTROPHILS - ABS (CELLAVISION)(BEAKER) (test code = 2830) 8.66 K/ul 1.78-5.38 H LYMPHOCYTES - ABS (CELLAVISION)(BEAKER) (test code = 2831) 1.40 K/ul 1.32-3.57 MONOCYTES - ABS (CELLAVISION)(BEAKER) (test code = 2832) 1.05 K/uL 0.30-0.82 H EOSINOPHILS - ABS (CELLAVISION)(BEAKER) (test code = 2834) 0.23 K/uL 0.04-0.54 BASOPHILS - ABS (CELLAVISION)(BEAKER) (test code = 2835) 0.35 K/uL 0.01-0.08 H TOTAL COUNTED (BEAKER) (test code = 1351) 100 PLT MORPHOLOGY (BEAKER) (test code = 486) Normal TOXIC GRANULATION (BEAKER) (test code = 771) Present POLYCHROMATOPHILLIC RBCS(BEAKER) (test code = 478) 2+ moderate HYPOCHROMIA (BEAKER) (test code = 963) 1+ few ANISOCYTOSIS (BEAKER) (test code = 961) 1+ few MACROCYTES (BEAKER) (test code = 964) 1+ few POIKILOCYTES (BEAKER) (test code = 966) 1+ few ALL CELLS (BEAKER) (test code = 474) 1+ few ARTIFACT (CELLAVISION)(BEAKER) (test code = 3432) Present PLATELET CONCENTRATION (CELLAVISION)(BEAKER) (test code = 3438) Cheryl quate Hvac R Tech ID - Ivonne Espinal comments: Slide comments: [id number] 04:01:00* Test Item Value Reference Range Interpretation Comments Procalcitonin (test code = 15251-7) 3.64 ng/mL <0.05 H PHILLIP (test code = PHILLIP) SEPSIS RISK (ng/mL)Low: 0.05-0.50Intermediate: 0.51-2.00High: >=2.01 Lab Interpretation (test code = 02104-8) Abnormal [facility]at[id number] 04:01:00* Test Item Value Reference Range Interpretation Comments PROCALCITONIN (BEAKER) (test code = 3036) 3.64 ng/mL <0.05 H SEPSIS RISK (ng/mL)Low: 0.05-0.50Intermediate: 0.51-2.00High: > =2.01BASIC METABOLIC [id number] 03:47:00* Test Item Value Reference Range Interpretation Comments SODIUM (BEAKER) (test code = 381) 138 meq/L 136-145 POTASSIUM (BEAKER) (test code = 379) 3.8 meq/L 3.5-5.1 CHLORIDE (BEAKER) (test code = 382) 104 meq/L 98-107 CO2 (BEAKER) (test code = 355) 26 meq/L 22-29 BLOOD UREA NITROGEN (BEAKER) (test code = 354) 13 mg/dL 7-21 CREATININE (BEAKER) (test code = 358) 3.32 mg/dL 0.57-1.25 H GLUCOSE RANDOM (BEAKER) (test code = 652) 111 mg/dL 70-105 H CALCIUM (BEAKER) (test code = 697) 8.6 mg/dL 8.4-10.2 EGFR (BEAKER) (test code = 1092) 21 mL/min/1.73 sq m ESTIMATED GFR IS NOT ACCURATE CREATININE CLEARANCE IN PREDICTING GLOMERULAR FILTRATION RATE. ESTIMATED GFR IS NOT APPLICABLE FOR DIALYSIS PATIENTS. Hvac R Tech ID - LAUREN WSpecimen moderately [id number] 03:44:00* Test Item Value Reference Range Interpretation Comments PHOSPHORUS (BEAKER) (test code = 604) 2.2 mg/dL 2.3-4.7 L Hvac R Tech ID - LAUREN [id number] 03:44:00* Test Item Value Reference Range Interpretation Comments MAGNESIUM (BEAKER) (test code = 627) 1.8 mg/dL 1.6-2.6 Hvac R Tech ID - LAUREN WPrepare Leuko-Red [id number] 23:54:00* Test Item Value Reference Range Interpretation Comments CROSSMATCH (test code = 2264) COMPATIBLE Unit ABO (test code = 9209128) B Pos UNIT NUMBER (test code = 934-0) [id number] Status (test code = 4006674) TX_TIMEINCHART Blood Bank Product (test code = 2263) RED BLOOD CELLS PRODUCT CODE (test code = 933-2) [id number] [facility] [id number] 16:57:29 Ejection FractionSLEH ECHO HEARTLAB MKCKESSON CPACSRight Impression1. The international controller al carotid artery is within normal limits.2. The external carotid artery is with in normal limits.3. The common carotid artery is within normal limits.4. The albert tebral artery flow is antegrade and normal.5. The subclavian artery is within no rmal limits where visualized.Left Impression1. The internal carotid artery is wi thin normal limits.2. The external carotid artery is within normal limits.3. The common carotid artery is within normal limits.4. The vertebral artery flow is a ntegrade and normal.5. The subclavian artery is within normal limits where visua lized. Conclusions Summary Carotid duplex scanning and color flow imaging wer e performed bilaterally. The arteries were well visualized and no areas of steno sis were found bilaterally. Doppler flow velocities were within normal range cassidy aterally. The vertebral artery flow was antegrade and normal bilaterally. The lara bclavian arteries were patent with normal flow bilaterally where visualized. Si gnature Electr onically signed by Karen Blackwell MD(Interpreting physician) on 05/07/2019 04: 57 PM Velocitie s are measured in cm/s ; Diameters are measured in cm Carotid Right Measurements + +----+----+-----+ + + +!Loc ation !PSV !EDV !Angle!%Stenosis 2D!%Stenosis Doppler!Tortuosity !+------- --------+----+----+-----+ + + +!Prox CCA !110 !24 !60 ! ! ! !+ +----+----+-----+ + + +!Dist CCA !112 !29.3!60 ! ! ! !+ +----+-- --+-----+ + + +!Prox ICA !115 !27.5!6 0 ! !Normal ! !+ +----+----+----- + + + +!Dist ICA !127 !37.3!60 ! ! ! !+ +----+----+-----+------- -----+ + +!Prox ECA !131 !23.6!60 ! ! ! !+ +----+----+-----+ +-- + +!Vertebral !68.6!21.7!60 ! ! ! !+ +----+----+-----+ + -------+ +!Prox Subclavian!163 ! !60 ! ! ! !+ +----+----+-----+ + + + - There is antegrade vertebral flow noted on the right side. - Additional Measurements:ICAPSV/CCAPSV 1.13.ICAEDV/CCAEDV 1.55. Carotid Left Silvino urements+ +----+----+-----+ + +-------- ---+!Location !PSV !EDV !Angle!%Stenosis 2D!%Stenosis Doppler!Tortuosity ! + +----+----+-----+ + + +!Pro x CCA !135 !28.8!60 ! ! ! !+------- --------+----+----+-----+ + + +!Dist CCA !139 !32.7!60 ! ! ! !+ +----+----+-----+ + + +!Prox ICA !85. 6!28.7!60 ! !Normal ! !+ +----+-- --+-----+ + + +!Dist ICA !134 !40.9!6 0 ! ! ! !+ +----+----+----- + + + +!Prox ECA !130 !24.6!60 ! ! ! !+ +----+----+-----+------- -----+ + +!Vertebral !76.2!17.3!60 ! ! ! !+ +----+----+-----+ +-- + +!Prox Subclavian!187 ! !60 ! ! ! !+ +----+----+-----+ + -------+ + - There is antegrade vertebral flow noted on the left angel e. - Additional Measurements:ICAPSV/CCAPSV 0.96.ICAEDV/CCAEDV 1.42. Interface, External Ris In - 05/07/2019 4:57 PM CDTPV LAB - Carotid Duplex Study [facility] Patient Name INDRA GALVAN Date of Study 05/06/2019 YAN CORDERO Age 38 Visit Number [id number] Gender Male Accession Elizabeth tinajero [id number] Date of 1980 Referring Radha antolin Carranza Room Number 6841 Physician SARAH Investment Banking Associate Cb Maki S Interpreting Karen Blackwell Physician ProcedureType of Study: Cerebral: Carotid, CAROTID DOPPLER, BILATERAL. Indications for Study:Pre transplant evaluation.Frederick sarmiento Status:Routine.Study Location:Vascular Lab.Technical Quality:Adequate visu alization.Risk FactorsHistory of Disease+ + +-------- +!Diagnosis !Date !Comments !+ + + +!History/Risk !06/04/2018!ARDS, HTN, Obesity !!Factors: ! ! !+ + + +!History/Risk !12/24/2018!History of fall 5 days ago, ESRD , LIver !!Factors: ! !failure !+ + + ---+ImpressionsRight Impression1. The internal carotid artery is within normal l imits.2. The external carotid artery is within normal limits.3. The common carot id artery is within normal limits.4. The vertebral artery flow is antegrade and normal.5. The subclavian artery is within normal limits where visualized.Left Im pression1. The internal carotid artery is within normal limits.2. The external c arotid artery is within normal limits.3. The common carotid artery is within nor mal limits.4. The vertebral artery flow is antegrade and normal.5. The subclavia n artery is within normal limits where visualized. Conclusions Summary Carotid duplex scanning and color flow imaging were performed bilaterally. The arteries were well visualized and no areas of stenosis were found bilaterally. Doppler f low velocities were within normal range bilaterally. The vertebral artery flow w as antegrade and normal bilaterally. The subclavian arteries were patent with no rmal flow bilaterally where visualized. Signature Velocities are measured in cm/s ; Diameters ar e measured in cmCarotid Right Measurements+ +----+----+-----+----- -------+ + +!Location !PSV !EDV !Angle!%Stenosis 2D!%Stenosis Doppler!Tortuosity !+ +----+----+-----+ + + +!Prox CCA !110 !24 !60 ! ! ! !+ +----+----+-----+ +-------- ---------+ +!Dist CCA !112 !29.3!60 ! ! ! !+ +----+----+-----+ + -+ +!Prox ICA !115 !27.5!60 ! !Normal ! !+ +----+----+-----+ + +------ -----+!Dist ICA !127 !37.3!60 ! ! ! !+ +----+----+-----+ + + +!P orlin ECA !131 !23.6!60 ! ! ! !+----- +----+----+-----+ + + +!Vertebral !68.6!21.7!60 ! ! ! !+ --+----+----+-----+ + + +!Prox Subclavian!1 63 ! !60 ! ! ! !+ +----+ ----+-----+ + + + - There is antegrade albert tebral flow noted on the right side. - Additional Measurements:ICAPSV/CCAPSV 1. 13.ICAEDV/CCAEDV 1.55.Carotid Left Measurements+ +----+----+-----+ + + +!Location !PSV !EDV !Angle!%Natanael nosis 2D!%Stenosis Doppler!Tortuosity !+ +----+----+-----+-------- ----+ + +!Prox CCA !135 !28.8!60 ! ! ! !+ +----+----+-----+ +--- + +!Dist CCA !139 !32.7!60 ! ! ! !+ +----+----+-----+ + ------+ +!Prox ICA !85.6!28.7!60 ! !Normal ! !+ +----+----+-----+ + +- +!Dist ICA !134 !40.9!60 ! ! ! !+ +----+----+-----+ + +--------- --+!Prox ECA !130 !24.6!60 ! ! ! !+ +----+----+-----+ + + +!Vert ebral !76.2!17.3!60 ! ! ! !+-------- -------+----+----+-----+ + + +!Prox Subclav rosario!187 ! !60 ! ! ! !+ + ----+----+-----+ + + + - There is antegrad e vertebral flow noted on the left side. - Additional Measurements:ICAPSV/CCAPS V 0.96.ICAEDV/CCAEDV 1.42.[facility] W/PLT COUNT & AUTO [id number] 11:24:00* Test Item Value Reference Range Interpretation Comments WHITE BLOOD CELL COUNT (BEAKER) (test code = 775) 11.3 K/ L 3.5- 10.5 H RED BLOOD CELL COUNT (BEAKER) (test code = 761) 2.52 M/ L 4.63-6 .08 L HEMOGLOBIN (BEAKER) (test code = 410) 7.4 GM/DL 13.7-17.5 L HEMATOCRIT (BEAKER) (test code = 411) 23.3 % 40.1-51.0 L MEAN CORPUSCULAR VOLUME (BEAKER) (test code = 753) 92.5 fL 79. 0-92.2 H MEAN CORPUSCULAR HEMOGLOBIN (BEAKER) (test code = 751) 29.4 pg 25.7-32.2 MEAN CORPUSCULAR HEMOGLOBIN CONC (BEAKER) (test code = 752) 31.8 GM/DL 32.3-36.5 L RED CELL DISTRIBUTION WIDTH (BEAKER) (test code = 412) 21.1 % 11.6-14.4 H PLATELET COUNT (BEAKER) (test code = 756) 227 K/CU MM 150-450 MEAN PLATELET VOLUME (BEAKER) (test code = 754) 10.0 fL 9.4-12 .4 NUCLEATED RED BLOOD CELLS (BEAKER) (test code = 413) 0 /100 WBC 0 -0 (CELLAVISION MANUAL DIFF)2019-05-07 11:24:00* Test Item Value Reference Range Interpretation Comments NEUTROPHILS - REL (CELLAVISION)(BEAKER) (test code = 2816) 78 % LYMPHOCYTES - REL (CELLAVISION)(BEAKER) (test code = 2817) 11 % MONOCYTES - REL (CELLAVISION)(BEAKER) (test code = 2818) 9 % EOSINOPHILS - REL (CELLAVISION)(BEAKER) (test code = 2819) 1 % BASOPHILS - REL (CELLAVISION)(BEAKER) (test code = 2820) 1 % NEUTROPHILS - ABS (CELLAVISION)(BEAKER) (test code = 2830) 8.81 K/ul 1.78-5.38 H LYMPHOCYTES - ABS (CELLAVISION)(BEAKER) (test code = 2831) 1.24 K/ul 1.32-3.57 L MONOCYTES - ABS (CELLAVISION)(BEAKER) (test code = 2832) 1.02 K/uL 0.30-0.82 H EOSINOPHILS - ABS (CELLAVISION)(BEAKER) (test code = 2834) 0.11 K/uL 0.04-0.54 BASOPHILS - ABS (CELLAVISION)(BEAKER) (test code = 2835) 0.11 K/uL 0.01-0.08 H TOTAL COUNTED (BEAKER) (test code = 1351) 100 WBC MORPHOLOGY (BEAKER) (test code = 487) Normal PLT MORPHOLOGY (BEAKER) (test code = 486) Normal POLYCHROMATOPHILLIC RBCS(BEAKER) (test code = 478) 1+ few ANISOCYTOSIS (BEAKER) (test code = 961) 1+ few MICROCYTES (BEAKER) (test code = 965) 1+ few POIKILOCYTES (BEAKER) (test code = 966) 2+ moderate OVALOCYTES (BEAKER) (test code = 477) 1+ few ARTIFACT (CELLAVISION)(BEAKER) (test code = 3432) Present PLATELET CONCENTRATION (CELLAVISION)(BEAKER) (test code = 3438) Cheryl quate Hvac R Tech ID - Marcella OverholtUser comments: Slide comments: COMPREHENSIVE METABOLIC [id number] 07:21:00* Test Item Value Reference Range Interpretation Comments TOTAL PROTEIN (BEAKER) (test code = 770) 6.8 gm/dL 6.0-8.3 ALBUMIN (BEAKER) (test code = 1145) 3.4 g/dL 3.5-5.0 L ALKALINE PHOSPHATASE (BEAKER) (test code = 346) 125 U/L 40-150 BILIRUBIN TOTAL (BEAKER) (test code = 377) 4.1 mg/dL 0.2-1.2 H SODIUM (BEAKER) (test code = 381) 133 meq/L 136-145 L POTASSIUM (BEAKER) (test code = 379) 3.7 meq/L 3.5-5.1 CHLORIDE (BEAKER) (test code = 382) 97 meq/L 98-107 L CO2 (BEAKER) (test code = 355) 24 meq/L 22-29 BLOOD UREA NITROGEN (BEAKER) (test code = 354) 25 mg/dL 7-21 H CREATININE (BEAKER) (test code = 358) 5.30 mg/dL 0.57-1.25 H GLUCOSE RANDOM (BEAKER) (test code = 652) 115 mg/dL 70-105 H CALCIUM (BEAKER) (test code = 697) 9.0 mg/dL 8.4-10.2 AST (SGOT) (BEAKER) (test code = 353) 19 U/L 5-34 ALT (SGPT) (BEAKER) (test code = 347) 8 U/L 6-55 EGFR (BEAKER) (test code = 1092) 12 mL/min/1.73 sq m ESTIMATED GFR IS NOT ACCURATE CREATININE CLEARANCE IN PREDICTING GLOMERULAR FILTRATION RATE. ESTIMATED GFR IS NOT APPLICABLE FOR DIALYSIS PATIENTS. 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 Signature -------- Findings Left Ventric le The left ventricle is chamber size (by PSLAX d imension) is normal (male - LVIDd 4.2-5.8cm) . Mild lance ntric LV hypertrophy. All of the LV segments contract nor gabriela . Global LV systolic function normal . LVEF by New's method of disk assessment is normal (>60%) . The LVEF was measured using New's bi- plane method of disk . Grade 2 diastolic [...] Velocity: 2.75 m/s TR Gradient: 30.26 mmHg [facility] [id number] 10:47:00* Test Item Value Reference Range Interpretation Comments Result (test code = 6463-4) <10,000 col/mL skin chase [facility]CBC W/PLT COUNT & AUTO [id number] 09:56:00* Test Item Value Reference Range Interpretation Comments WHITE BLOOD CELL COUNT (BEAKER) (test code = 775) 12.0 K/ L 3.5- 10.5 H RED BLOOD CELL COUNT (BEAKER) (test code = 761) 2.56 M/ L 4.63-6 .08 L HEMOGLOBIN (BEAKER) (test code = 410) 7.5 GM/DL 13.7-17.5 L HEMATOCRIT (BEAKER) (test code = 411) 22.8 % 40.1-51.0 L MEAN CORPUSCULAR VOLUME (BEAKER) (test code = 753) 89.1 fL 79. 0-92.2 MEAN CORPUSCULAR HEMOGLOBIN (BEAKER) (test code = 751) 29.3 pg 25.7-32.2 MEAN CORPUSCULAR HEMOGLOBIN CONC (BEAKER) (test code = 752) 32.9 GM/DL 32.3-36.5 RED CELL DISTRIBUTION WIDTH (BEAKER) (test code = 412) 19.8 % 11.6-14.4 H PLATELET COUNT (BEAKER) (test code = 756) 224 K/CU MM 150-450 MEAN PLATELET VOLUME (BEAKER) (test code = 754) 10.2 fL 9.4-12 .4 NUCLEATED RED BLOOD CELLS (BEAKER) (test code = 413) 0 /100 WBC 0 -0 (CELLAVISION MANUAL DIFF)2019-05-06 09:56:00* Test Item Value Reference Range Interpretation Comments NEUTROPHILS - REL (CELLAVISION)(BEAKER) (test code = 2816) 83 % LYMPHOCYTES - REL (CELLAVISION)(BEAKER) (test code = 2817) 6 % MONOCYTES - REL (CELLAVISION)(BEAKER) (test code = 2818) 9 % ATYPICAL LYMPHOCYTES - REL (CELLAVISION)(BEAKER) (test code = 2829) 2 % 0-0 H NEUTROPHILS - ABS (CELLAVISION)(BEAKER) (test code = 2830) 9.96 K/ul 1.78-5.38 H LYMPHOCYTES - ABS (CELLAVISION)(BEAKER) (test code = 2831) 0.72 K/ul 1.32-3.57 L MONOCYTES - ABS (CELLAVISION)(BEAKER) (test code = 2832) 1.08 K/uL 0.30-0.82 H ATYPICAL LYMPHOCYTES - ABS (CELLAVISION)(BEAKER) (test code = 2858) 0.24 K/uL 0.00-0.00 H TOTAL COUNTED (BEAKER) (test code = 1351) 100 WBC MORPHOLOGY (BEAKER) (test code = 487) Normal GIANT PLATELETS (BEAKER) (test code = 313) Present LARGE PLT(BEAKER) (test code = 2156) Present POLYCHROMATOPHILLIC RBCS(BEAKER) (test code = 478) 1+ few HYPOCHROMIA (BEAKER) (test code = 963) 2+ moderate ANISOCYTOSIS (BEAKER) (test code = 961) 1+ few POIKILOCYTES (BEAKER) (test code = 966) 1+ few ELLIPTOCYTES (BEAKER) (test code = 962) 1+ few OVALOCYTES (BEAKER) (test code = 477) 1+ few TEAR DROP CELLS (BEAKER) (test code = 481) 1+ few ARTIFACT (CELLAVISION)(BEAKER) (test code = 3432) Present PLATELET CONCENTRATION (CELLAVISION)(BEAKER) (test code = 3438) Cheryl quate [employer] Tech ID - Giselle Ishmael comments: Slide comments: WBC: SEGMENTED WI TH TOXIC GRANULATIONS PRESENT ECG 12 [id number] 06:34:13Interface, External Ris In - 05/06/2019 6:34 AM CDTVentricular Rate 128 BPMAtrial Rate 89 BPMQRS Duration 94 msQ-T Interval 336 msQTC Calculation(Bazett) 490 msR [place] 151 degreesT [place] -88 degreesAtrial fibrillationLeft posterior fascicular blockST & T wave abnormality, consider inferior ischemiaST & T wave abnormality, consider anterolateral ischemiaAbnormal ECGWhen compared with ECG of 05-MAY-2019 20:52,Atrial fibrillation PresentInverted T waves have replaced nonspecific T wave abnormality in Inferior leadsInverted T waves have replaced nonspecific T wave abnormality in Anterolateral leadsConfirmed by MD CHELA, INDRA Simon ([id number]) on 05/06/2019 6:34:11 [facility]COMPRE[facility]ENS[facility] METABOL[facility] [id number] 06:25:00* Test Item Value Reference Range Interpretation Comments TOTAL PROTEIN (BEAKER) (test code = 770) 7.0 gm/dL 6.0-8.3 ALBUMIN (BEAKER) (test code = 1145) 3.5 g/dL 3.5-5.0 ALKALINE PHOSPHATASE (BEAKER) (test code = 346) 121 U/L 40-150 BILIRUBIN TOTAL (BEAKER) (test code = 377) 5.1 mg/dL 0.2-1.2 H SODIUM (BEAKER) (test code = 381) 132 meq/L 136-145 L POTASSIUM (BEAKER) (test code = 379) 3.8 meq/L 3.5-5.1 CHLORIDE (BEAKER) (test code = 382) 96 meq/L 98-107 L CO2 (BEAKER) (test code = 355) 25 meq/L 22-29 BLOOD UREA NITROGEN (BEAKER) (test code = 354) 20 mg/dL 7-21 CREATININE (BEAKER) (test code = 358) 3.82 mg/dL 0.57-1.25 H GLUCOSE RANDOM (BEAKER) (test code = 652) 119 mg/dL 70-105 H CALCIUM (BEAKER) (test code = 697) 8.8 mg/dL 8.4-10.2 AST (SGOT) (BEAKER) (test code = 353) 21 U/L 5-34 ALT (SGPT) (BEAKER) (test code = 347) 6 U/L 6-55 EGFR (BEAKER) (test code = 1092) 18 mL/min/1.73 sq m ESTIMATED GFR IS NOT ACCURATE CREATININE CLEARANCE IN PREDICTING GLOMERULAR FILTRATION RATE. ESTIMATED GFR IS NOT APPLICABLE FOR DIALYSIS PATIENTS. Hvac R Tech ID - ULYSSES MSpecimen moderately [id number] 06:24:00* Test Item Value Reference Range Interpretation Comments MAGNESIUM (BEAKER) (test code = 627) 1.9 mg/dL 1.6-2.6 Hvac R Tech ID - ULYSSES MBASIC METABOLIC [id number] 21:58:00* Test Item Value Reference Range Interpretation Comments SODIUM (BEAKER) (test code = 381) 134 meq/L 136-145 L POTASSIUM (BEAKER) (test code = 379) 4.0 meq/L 3.5-5.1 Specimen slightly hemolyzed CHLORIDE (BEAKER) (test code = 382) 99 meq/L 98-107 CO2 (BEAKER) (test code = 355) 25 meq/L 22-29 BLOOD UREA NITROGEN (BEAKER) (test code = 354) 16 mg/dL 7-21 CREATININE (BEAKER) (test code = 358) 3.04 mg/dL 0.57-1.25 H Specimen slightly hemolyzed GLUCOSE RANDOM (BEAKER) (test code = 652) 133 mg/dL 70-105 H CALCIUM (BEAKER) (test code = 697) 8.8 mg/dL 8.4-10.2 EGFR (BEAKER) (test code = 1092) 23 mL/min/1.73 sq m ESTIMATED GFR IS NOT ACCURATE CREATININE CLEARANCE IN PREDICTING GLOMERULAR FILTRATION RATE. ESTIMATED GFR IS NOT APPLICABLE FOR DIALYSIS PATIENTS. Hvac R Tech ID - BSSpecimen moderately ictericTroponin [id number] 21:56:00* Test Item Value Reference Range Interpretation Comments Troponin I (test code = 12307-0) <0.01 0-0.03 PHILLIP (test code = PHILLIP) Troponin I (TnI) levels must be interpreted in the context of the presenting symptoms and the clinical findings. Elevated TnI levels indicate myocardial damage, but are not specific for ischemic heart disease. Elevated TnI levels are seen in patients with other cardiac conditions (including myocarditis and congestive heart failure), and slight TnI elevations occur in patients with other conditions, including sepsis, renal failure, acidosis, acute neurological disease, and persistent tachyarrhythmia.Hvac R Tech ID - BS Lab Interpretation (test code = 22564-5) [facility] [id number] 21:56:00* Test Item Value Reference Range Interpretation Comments TROPONIN I (BEAKER) (test code = 397) < ng/mL 0.00-0.03 Troponin I (TnI) levels must be interpreted in the context of the presenting sym ptoms and the clinical findings. Elevated TnI levels indicate myocardial damage, but are not specific for ischemic heart disease. Elevated TnI levels are seen in patients with other cardiac conditions (including myocarditis and congestive h eart failure), and slight TnI elevations occur in patients with other conditions , including sepsis, renal failure, acidosis, acute neurological disease, and per sistent tachyarrhythmia.Hvac R Tech ID - [id number] 21:49:00* Test Item Value Reference Range Interpretation Comments MAGNESIUM (BEAKER) (test code = 627) 1.8 mg/dL 1.6-2.6 Specimen slightly hemolyzed Hvac R Tech ID - BSCBC W/PLT COUNT & AUTO [id number] 21:32:00* Test Item Value Reference Range Interpretation Comments WHITE BLOOD CELL COUNT (BEAKER) (test code = 775) 9.7 K/ L 3.5- 10.5 RED BLOOD CELL COUNT (BEAKER) (test code = 761) 2.19 M/ L 4.63-6 .08 L HEMOGLOBIN (BEAKER) (test code = 410) 6.5 GM/DL 13.7-17.5 L HEMATOCRIT (BEAKER) (test code = 411) 19.7 % 40.1-51.0 L MEAN CORPUSCULAR VOLUME (BEAKER) (test code = 753) 90.0 fL 79. 0-92.2 MEAN CORPUSCULAR HEMOGLOBIN (BEAKER) (test code = 751) 29.7 pg 25.7-32.2 MEAN CORPUSCULAR HEMOGLOBIN CONC (BEAKER) (test code = 752) 33.0 GM/DL 32.3-36.5 RED CELL DISTRIBUTION WIDTH (BEAKER) (test code = 412) 19.2 % 11.6-14.4 H PLATELET COUNT (BEAKER) (test code = 756) 185 K/CU MM 150-450 MEAN PLATELET VOLUME (BEAKER) (test code = 754) 10.5 fL 9.4-12 .4 NUCLEATED RED BLOOD CELLS (BEAKER) (test code = 413) 0 /100 WBC 0 -0 NEUTROPHILS RELATIVE PERCENT (BEAKER) (test code = 429) 78 % LYMPHOCYTES RELATIVE PERCENT (BEAKER) (test code = 430) 8 % MONOCYTES RELATIVE PERCENT (BEAKER) (test code = 431) 13 % EOSINOPHILS RELATIVE PERCENT (BEAKER) (test code = 432) 0 % BASOPHILS RELATIVE PERCENT (BEAKER) (test code = 437) 0 % NEUTROPHILS ABSOLUTE COUNT (BEAKER) (test code = 670) 7.55 K/ L 1.78-5.38 H LYMPHOCYTES ABSOLUTE COUNT (BEAKER) (test code = 414) 0.77 K/ L 1.32-3.57 L MONOCYTES ABSOLUTE COUNT (BEAKER) (test code = 415) 1.23 K/ L 0. 30-0.82 H EOSINOPHILS ABSOLUTE COUNT (BEAKER) (test code = 416) 0.03 K/ L 0.04-0.54 L BASOPHILS ABSOLUTE COUNT (BEAKER) (test code = 417) 0.04 K/ L 0. 01-0.08 IMMATURE GRANULOCYTES-RELATIVE PERCENT (BEAKER) (test code = 2801) 1 % 0-1 Hepatitis B surface [id number] 17:35:00* Test Item Value Reference Range Interpretation Comments HBsAg Screen (test code = 5195-3) Nonreactive Nonreactive PHILLIP (test code = PHILLIP) Hvac R Tech ID - BS Lab Interpretation (test code = 39384-2) [facility] SUR[facility] [id number] 17:35:00* Test Item Value Reference Range Interpretation Comments HEPATITIS B SURFACE ANTIGEN (2) (BEAKER) (test code = 2585) Nonreactive Nonreactive Hvac R Tech ID - BSOccult blood, [id number] 14:45:00* Test Item Value Reference Range Interpretation Comments Occult blood (test code = 2335-8) Negative Negative Lab Interpretation (test code = 22363-3) Normal [facility]OCC[facility] BLOOD, [id number] 14:45:00* Test Item Value Reference Range Interpretation Comments FECAL OCCULT BLOOD (BEAKER) (test code = 618) Negative Negative [id number] 10:41:00* Test Item Value Reference Range Interpretation Comments Ferritin (test code = 2276-4) 1081 ng/mL 5-275 H PHILLIP (test code = PHILLIP) Hvac R Tech ID - AAHAMID Lab Interpretation (test code = 13402-8) Abnormal [facility]FERR[facility]IN2020-[facility]-09 10:41:00* Test Item Value Reference Range Interpretation Comments FERRITIN (BEAKER) (test code = 361) 1081 ng/mL 5-275 H Hvac R Tech ID - AAHAMIDDirect AHG (LUMA)/Direct [id number] 10:38:00* Test Item Value Reference Range Interpretation Comments Direct AHG-IGG (test code = 1006-6) NEGATIVE Direct [facility]-C3B, C3D (test code = 1003-3) NEGATVIE [facility] HospitalABORH, [id number] 10:28:00* Test Item Value Reference Range Interpretation Comments ABO Grouping (test code = 2588) B Rh Factor (test code = 2589) [facility]COM[facility] [id number] 10:25:00* Test Item Value Reference Range Interpretation Comments TOTAL PROTEIN (BEAKER) (test code = 770) 6.8 gm/dL 6.0-8.3 ALBUMIN (BEAKER) (test code = 1145) 3.3 g/dL 3.5-5.0 L ALKALINE PHOSPHATASE (BEAKER) (test code = 346) 114 U/L 40-150 BILIRUBIN TOTAL (BEAKER) (test code = 377) 5.2 mg/dL 0.2-1.2 H SODIUM (BEAKER) (test code = 381) 127 meq/L 136-145 L POTASSIUM (BEAKER) (test code = 379) 3.3 meq/L 3.5-5.1 L CHLORIDE (BEAKER) (test code = 382) 89 meq/L 98-107 L CO2 (BEAKER) (test code = 355) 23 meq/L 22-29 BLOOD UREA NITROGEN (BEAKER) (test code = 354) 47 mg/dL 7-21 H CREATININE (BEAKER) (test code = 358) 6.16 mg/dL 0.57-1.25 H GLUCOSE RANDOM (BEAKER) (test code = 652) 150 mg/dL 70-105 H CALCIUM (BEAKER) (test code = 697) 8.6 mg/dL 8.4-10.2 AST (SGOT) (BEAKER) (test code = 353) 23 U/L 5-34 ALT (SGPT) (BEAKER) (test code = 347) 11 U/L 6-55 EGFR (BEAKER) (test code = 1092) 10 mL/min/1.73 sq m ESTIMATED GFR IS NOT ACCURATE CREATININE CLEARANCE IN PREDICTING GLOMERULAR FILTRATION RATE. ESTIMATED GFR IS NOT APPLICABLE FOR DIALYSIS PATIENTS. Hvac R Tech ID - PIAYA LSpecimen moderately ictericIron, TIBC, % sat. (without ferritin)2019-05-05 10:21:00* Test Item Value Reference Range Interpretation Comments Iron (test code = 2498-4) 88.0 ug/dL 40-160 TIBC (test code = 2500-7) 130 ug/dL 250-450 L Iron % Saturation (test code = 2502-3) 68 % 20-55 H PHILLIP (test code = PHILLIP) Hvac R Tech ID - ROZINA L Lab Interpretation (test code = 76223-7) Abnormal [facility]atoriumIRON, TIBC, % SAT. (WITHOUT FERRITIN)2019-05-05 10:21:00* Test Item Value Reference Range Interpretation Comments IRON (BEAKER) (test code = 547) 88.0 ug/dL 40.0-160.0 TOTAL IRON BINDING CAPACITY (BEAKER) (test code = 769) 130 ug/dL 250-450 L IRON % SATURATION (2) (BEAKER) (test code = 2590) 68 % 20-5 5 H Hvac R Tech ID - ROZINA LBILIRUBIN, [id number] 10:20:00* Test Item Value Reference Range Interpretation Comments BILIRUBIN DIRECT (BEAKER) (test code = 706) 3.0 mg/dL 0.1-0.5 H Hvac R Tech ID - ROZINA LCBC W/PLT COUNT & AUTO [id number] 10:08:00* Test Item Value Reference Range Interpretation Comments WHITE BLOOD CELL COUNT (BEAKER) (test code = 775) 12.2 K/ L 3.5- 10.5 H RED BLOOD CELL COUNT (BEAKER) (test code = 761) 2.28 M/ L 4.63-6 .08 L HEMOGLOBIN (BEAKER) (test code = 410) 6.9 GM/DL 13.7-17.5 L HEMATOCRIT (BEAKER) (test code = 411) 20.7 % 40.1-51.0 L MEAN CORPUSCULAR VOLUME (BEAKER) (test code = 753) 90.8 fL 79. 0-92.2 MEAN CORPUSCULAR HEMOGLOBIN (BEAKER) (test code = 751) 30.3 pg 25.7-32.2 MEAN CORPUSCULAR HEMOGLOBIN CONC (BEAKER) (test code = 752) 33.3 GM/DL 32.3-36.5 RED CELL DISTRIBUTION WIDTH (BEAKER) (test code = 412) 18.6 % 11.6-14.4 H PLATELET COUNT (BEAKER) (test code = 756) 178 K/CU MM 150-450 MEAN PLATELET VOLUME (BEAKER) (test code = 754) 11.1 fL 9.4-12 .4 NUCLEATED RED BLOOD CELLS (BEAKER) (test code = 413) 0 /100 WBC 0 -0 NEUTROPHILS RELATIVE PERCENT (BEAKER) (test code = 429) 79 % LYMPHOCYTES RELATIVE PERCENT (BEAKER) (test code = 430) 8 % MONOCYTES RELATIVE PERCENT (BEAKER) (test code = 431) 11 % EOSINOPHILS RELATIVE PERCENT (BEAKER) (test code = 432) 1 % BASOPHILS RELATIVE PERCENT (BEAKER) (test code = 437) 0 % NEUTROPHILS ABSOLUTE COUNT (BEAKER) (test code = 670) 9.62 K/ L 1.78-5.38 H LYMPHOCYTES ABSOLUTE COUNT (BEAKER) (test code = 414) 1.02 K/ L 1.32-3.57 L MONOCYTES ABSOLUTE COUNT (BEAKER) (test code = 415) 1.32 K/ L 0. 30-0.82 H EOSINOPHILS ABSOLUTE COUNT (BEAKER) (test code = 416) 0.11 K/ L 0.04-0.54 BASOPHILS ABSOLUTE COUNT (BEAKER) (test code = 417) 0.04 K/ L 0. 01-0.08 IMMATURE GRANULOCYTES-RELATIVE PERCENT (BEAKER) (test code = 2801) 1 % 0-1 Reticulocyte [id number] 10:04:00* Test Item Value Reference Range Interpretation Comments % Retic (test code = 27991-3) 2.3 % 0.5-1.8 H PHILLIP (test code = PHILLIP) Hvac R Tech ID - [id number] Lab Interpretation (test code = 03387-7) Abnormal [facility] HospitalRETICULOCYTE [id number] 10:04:00* Test Item Value Reference Range Interpretation Comments RETICULOCYTE COUNT PCT (BEAKER) (test code = 575) 2.3 % 0.5- 1.8 H Hvac R Tech ID - [id number] acid, [id number] 00:50:00* Test Item Value Reference Range Interpretation Comments Lactate, Venous (test code = 2872) 2.6 mmol/L 0.5-2.2 H PHILLIP (test code = PHILLIP) Hvac R Tech ID - PIAYA LSpecimen slightly icteri c Lab Interpretation (test code = 31450-0) Abnormal [facility] HospitalLACTIC ACID, [id number] 00:50:00* Test Item Value Reference Range Interpretation Comments LACTATE BLOOD VENOUS (2) ([facility]) (test code = 2872) 2.6 mmol/L 0 .5-2.2 H Hvac R Tech ID - ROZINA LSpecimen slightly ictericStrep pneumoniae [id number] 21:50:00* Test Item Value Reference Range Interpretation Comments Strep pneumoniae Antigen (test code = 34851-3) Presump tive negative for pneumococcal pneumonia - see comment Presumptive negative for pneumococcal pneumonia - see comment, Presumptive negative for pneumococcal meningitis PHILLIP (test code = PHILLIP) Presumptive negative for pne umococcal pneumonia, suggesting no current or recent pneumococcal infection. Infection due to S. pneumoniae cannot be ruled out since the antigen present in the sample may be below the detection limit of the test. Lab Interpretation (test code = 55001-3) [facility] [id number] 21:50:00* Test Item Value Reference Range Interpretation Comments STREP PNEUMONIAE ANTIGEN ([facility]) (test code = 1615) P resumptive negative for pneumococcal pneumonia - see comment Presumptive negative for pneumococcal pneumonia - see commen Presumptive negative for pneumococcal pneumonia, suggesting no current or recent pneumococcal infection. Infection due to S. pneumoniae cannot be ruled out since the antigen present in the sample may be below the detection limit of the test. Legionella antigen, [id number] 21:49:00* Test Item Value Reference Range Interpretation Comments Legionella Urine Antigen (test code = 62873-0) Negative - see comme nt Negative for L. pneumophila serogroup 1 antigen, suggesting no recent or current infection with this serogroup. Legionellosis cannot be ruled out since other serogroups and species may cause disease. [facility] HospitalLEGIONELLA ANTIGEN, [id number] 21:49:00* Test Item Value Reference Range Interpretation Comments L. PNEUMOPHILA SEROGP 1 UR AG ([facility]) (test code = 11 56) Negative - see comment Negative for L. pneu mophila serogroup 1 antigen, suggesting no recent or current infection with this serogroup. Legionellosis cannot be ruled out since other serogroups and species may cause disease. Type and screen, automated ([facility] and [facility] only)2019-05-04 21:22:00* Test Item Value Reference Range Interpretation Comments ABO/RH AUTOMATED ([facility]) (test code = 2260) B POSITIVE Ab Scrn (test code = 890-4) NEGATIVE [facility] HospitalPROCALCITONIN2020-03-08 20:32:00* Test Item Value Reference Range Interpretation Comments PROCALCITONIN (BEAKER) (test code = 3036) 14.51 ng/mL <0.05 HH SEPSIS RISK (ng/mL)Low: 0.05-0.50Intermediate: 0.51-2.00High: > =2.01Urinalysis w/Microscopic + Reflex to [id number] 20:25:00* Test Item Value Reference Range Interpretation Comments Color, UA (test code = 5778-6) Yellow Clarity, UA (test code = 5767-9) Hazy Specific [place], UA (test code = 5811-5) 1.011 1.001-1.035 pH, UA (test code = 5803-2) 5.5 5.0-8.0 Protein, UA (test code = 82130-9) 100 mg/dL Negative A Glucose, UA (test code = 365) 100 mg/dL Negative A Ketones, UA (test code = 2514-8) Negative Negative Bilirubin, UA (test code = 14696-1) Negative Negative Blood, UA (test code = 24190-2) Negative Negative Nitrite, UA (test code = 5802-4) Negative Negative Leukocytes, UA (test code = 5799-2) Negative Negative Urobilinogen, UA (test code = 51752-9) 0.2 mg/dL 0.2-1 RBC, UA (test code = 28351-7) 7 /HPF WBC, UA (test code = 5821-4) 12 /HPF Bacteria, UA (test code = 02392-0) Occasional Mucus (test code = 8247-9) Rare Squam Epithel, UA (test code = 69439-5) 18 /HPF Hyaline Casts, UA (test code = 45079-7) 78 /LPF Casts (test code = 9842-6) 70 /LPF Crystals, Urine (test code = 82709-2) Occasional Yeast (test code = 83304-9) Moderate Specimen Source (test code = 2795) PHILLIP (test code = PHILLIP) Hvac R Tech ID - [auto]Hvac R Tech ID - tech Lab Interpretation (test code = 63278-2) Abnormal [facility] HospitalURINALYSIS W/ REFLEX URINE [id number] 20:25:00* Test Item Value Reference Range Interpretation Comments COLOR (BEAKER) (test code = 470) Yellow CLARITY (BEAKER) (test code = 469) Hazy SPECIFIC GRAVITY UA (BEAKER) (test code = 468) 1.011 1.001-1 .035 PH UA (BEAKER) (test code = 467) 5.5 5.0-8.0 PROTEIN UA (BEAKER) (test code = 464) 100 mg/dL Negative A GLUCOSE UA (BEAKER) (test code = 365) 100 mg/dL Negative A KETONES UA (BEAKER) (test code = 371) Negative Negative BILIRUBIN UA (BEAKER) (test code = 462) Negative Negative BLOOD UA (BEAKER) (test code = 461) Negative Negative NITRITE UA (BEAKER) (test code = 465) Negative Negative LEUKOCYTE ESTERASE UA (BEAKER) (test code = 466) Negative Negat mumtaz UROBILINOGEN UA (BEAKER) (test code = 463) 0.2 mg/dL 0.2-1.0 RBC UA (BEAKER) (test code = 519) 7 /HPF WBC UA (BEAKER) (test code = 520) 12 /HPF BACTERIA (BEAKER) (test code = 517) Occasional MUCUS (BEAKER) (test code = 1574) Rare SQUAMOUS EPITHELIAL (BEAKER) (test code = 516) 18 /HPF HYALINE CASTS (BEAKER) (test code = 514) 78 /LPF CASTS (BEAKER) (test code = 1579) 70 /LPF CRYSTALS, URINE (BEAKER) (test code = 1521) Occasional YEAST (BEAKER) (test code = 1585) Moderate SOURCE(BEAKER) (test code = 2795) Hvac R Tech ID - [auto]Hvac R Tech ID - techPT/[id number] 20:11:00* Test Item Value Reference Range Interpretation Comments Protime (test code = 5902-2) 18.9 11.9- 14.2 seconds H INR (test code = 6301-6) 1.6 <=5.9 PTT (test code = 72703-3) 40.7 22.5- 36.0 seconds H PHILLIP (test code = PHILLIP) Effective 07/24/2018: PT Refe rence Range ChangeNew: 11.9- 14.2 Previous: 11.7-14.7 RECOMMENDED COUMADIN/WARFARIN INR THERAPY RANGESSTANDARD DOSE: 2.0-3.0 Includes: PROPHYLAXIS for venous thrombosis, sys temic embolization; TREATMENT for venous thrombosis and/or pulmonary embolus.HIGH RISK: Target INR is 2.5-3.5 for patients wiht mechanical heart valves. Lab Interpretation (test code = 57162-4) Abnormal [facility] HospitalPT/[id number] 20:11:00* Test Item Value Reference Range Interpretation Comments PROTIME (BEAKER) (test code = 759) 18.9 seconds 11.9-14.2 H INR (BEAKER) (test code = 370) 1.6 <=5.9 PARTIAL THROMBOPLASTIN TIME (BEAKER) (test code = 760) 40.7 seconds 22.5-36.0 H Effective 07/24/2018: PT Reference Range ChangeNew: 11.9-14.2 Previous: 11.7-14. 7RECOMMENDED COUMADIN/WARFARIN INR THERAPY RANGESSTANDARD DOSE: 2.0-3.0 Include s: PROPHYLAXIS for venous thrombosis, systemic embolization; TREATMENT for venou s thrombosis and/or pulmonary embolus.HIGH RISK: Target INR is 2.5-3.5 for patie nts wiht mechanical heart valves.B-type Natriuretic Factor (BNP)2019-05-04 20:00:00* Test Item Value Reference Range Interpretation Comments BNP (test code = 01359-5) 612 pg/mL 0-100 H PHILLIP (test code = PHILLIP) Hvac R Tech ID - DB Lab Interpretation (test code = 95886-3) Abnormal [facility] HospitalRapid Influenza A&B [id number] 20:00:00* Test Item Value Reference Range Interpretation Comments Rapid Influenza A Antigen (test code = 90306-2) Negative Negative, Inconclusive Rapid influenza B Antigen (test code = 54407-2) Negative Negative, Inconclusive Lab Interpretation (test code = 64643-7) Normal [facility] HospitalB-TYPE NATRIURETIC FACTOR (BNP)2019-05-04 20:00:00 * Test Item Value Reference Range Interpretation Comments B-TYPE NATRIURETIC PEPTIDE (BEAKER) (test code = 700) 612 pg/mL 0-100 H Hvac R Tech ID - DBTROPONIN [id number] 20:00:00* Test Item Value Reference Range Interpretation Comments TROPONIN I (BEAKER) (test code = 397) < ng/mL 0.00-0.03 Troponin I (TnI) levels must be interpreted in the context of the presenting sym ptoms and the clinical findings. Elevated TnI levels indicate myocardial damage, but are not specific for ischemic heart disease. Elevated TnI levels are seen i n patients with other cardiac conditions (including myocarditis and congestive h eart failure), and slight TnI elevations occur in patients with other conditions , including sepsis, renal failure, acidosis, acute neurological disease, and per sistent tachyarrhythmia.Hvac R Tech ID - DBRAPID INFLUENZA A&B [id number] 20:00:00* Test Item Value Reference Range Interpretation Comments RAPID INFLUENZA A AG (BEAKER) (test code = 1622) Negative Negative, Inconclusive RAPID INFLUENZA B AG (BEAKER) (test code = 1623) Negative Negative, Inconclusive [id number] 19:54:00* Test Item Value Reference Range Interpretation Comments PHOSPHORUS (BEAKER) (test code = 604) 2.9 mg/dL 2.3-4.7 Hvac R Tech ID - [id number] 19:54:00* Test Item Value Reference Range Interpretation Comments MAGNESIUM (BEAKER) (test code = 627) 2.0 mg/dL 1.6-2.6 Hvac R Tech ID - DBCOMPREHENSIVE METABOLIC [id number] 19:54:00* Test Item Value Reference Range Interpretation Comments TOTAL PROTEIN (BEAKER) (test code = 770) 7.2 gm/dL 6.0-8.3 ALBUMIN (BEAKER) (test code = 1145) 3.5 g/dL 3.5-5.0 ALKALINE PHOSPHATASE (BEAKER) (test code = 346) 137 U/L 40-150 BILIRUBIN TOTAL (BEAKER) (test code = 377) 4.4 mg/dL 0.2-1.2 H SODIUM (BEAKER) (test code = 381) 123 meq/L 136-145 L POTASSIUM (BEAKER) (test code = 379) 3.3 meq/L 3.5-5.1 L CHLORIDE (BEAKER) (test code = 382) 85 meq/L 98-107 L CO2 (BEAKER) (test code = 355) 23 meq/L 22-29 BLOOD UREA NITROGEN (BEAKER) (test code = 354) 44 mg/dL 7-21 H CREATININE (BEAKER) (test code = 358) 5.51 mg/dL 0.57-1.25 H GLUCOSE RANDOM (BEAKER) (test code = 652) 199 mg/dL 70-105 H CALCIUM (BEAKER) (test code = 697) 8.6 mg/dL 8.4-10.2 AST (SGOT) (BEAKER) (test code = 353) 22 U/L 5-34 ALT (SGPT) (BEAKER) (test code = 347) 6 U/L 6-55 EGFR (BEAKER) (test code = 1092) 12 mL/min/1.73 sq m ESTIMATED GFR IS NOT ACCURATE CREATININE CLEARANCE IN PREDICTING GLOMERULAR FILTRATION RATE. ESTIMATED GFR IS NOT APPLICABLE FOR DIALYSIS PATIENTS. Hvac R Tech ID - DBSpecimen slightly ictericCBC W/PLT COUNT & AUTO DIFFERENTIAL 2019-05-04 19:51:00* Test Item Value Reference Range Interpretation Comments WHITE BLOOD CELL COUNT (BEAKER) (test code = 775) 13.8 K/ L 3.5- 10.5 H RED BLOOD CELL COUNT (BEAKER) (test code = 761) 1.87 M/ L 4.63-6 .08 L HEMOGLOBIN (BEAKER) (test code = 410) 5.7 GM/DL 13.7-17.5 LL HEMATOCRIT (BEAKER) (test code = 411) 17.2 % 40.1-51.0 L MEAN CORPUSCULAR VOLUME (BEAKER) (test code = 753) 92.0 fL 79. 0-92.2 MEAN CORPUSCULAR HEMOGLOBIN (BEAKER) (test code = 751) 30.5 pg 25.7-32.2 MEAN CORPUSCULAR HEMOGLOBIN CONC (BEAKER) (test code = 752) 33.1 GM/DL 32.3-36.5 RED CELL DISTRIBUTION WIDTH (BEAKER) (test code = 412) 18.9 % 11.6-14.4 H PLATELET COUNT (BEAKER) (test code = 756) 184 K/CU MM 150-450 MEAN PLATELET VOLUME (BEAKER) (test code = 754) 11.7 fL 9.4-12 .4 NUCLEATED RED BLOOD CELLS (BEAKER) (test code = 413) 0 /100 WBC 0 -0 NEUTROPHILS RELATIVE PERCENT (BEAKER) (test code = 429) 82 % LYMPHOCYTES RELATIVE PERCENT (BEAKER) (test code = 430) 8 % MONOCYTES RELATIVE PERCENT (BEAKER) (test code = 431) 9 % EOSINOPHILS RELATIVE PERCENT (BEAKER) (test code = 432) 0 % BASOPHILS RELATIVE PERCENT (BEAKER) (test code = 437) 0 % NEUTROPHILS ABSOLUTE COUNT (BEAKER) (test code = 670) 11.39 K/ L 1.78-5.38 H LYMPHOCYTES ABSOLUTE COUNT (BEAKER) (test code = 414) 1.06 K/ L 1.32-3.57 L MONOCYTES ABSOLUTE COUNT (BEAKER) (test code = 415) 1.19 K/ L 0. 30-0.82 H EOSINOPHILS ABSOLUTE COUNT (BEAKER) (test code = 416) 0.03 K/ L 0.04-0.54 L BASOPHILS ABSOLUTE COUNT (BEAKER) (test code = 417) 0.04 K/ L 0. 01-0.08 IMMATURE GRANULOCYTES-RELATIVE PERCENT (BEAKER) (test code = 2801) 1 % 0-1 LACTIC ACID, [id number] 19:48:00* Test Item Value Reference Range Interpretation Comments LACTATE BLOOD VENOUS (2) (BEAKER) (test code = 2872) 2.7 mmol/L 0 .5-2.2 H Specimen slightly hemolyzed Hvac R Tech ID - DBSpecimen slightly ictericCRITICAL [id number] 18:47:50Juanpablo Calhoun MD 05/04/2019 9:12 PMCritical CarePerformed by: Juanpablo Calhoun MDAuthorized by: Juanpablo Calhoun MD Total critical care time: 59 minutesCritical care was necessary to treat or prevent imminent or life-threa tening deterioration of the following conditions: sepsis.Critical care was time spent personally by me on the following activities: discussions with consultants , discussions with primary provider, interpretation of cardiac output measuremen ts, evaluation of patient's response to treatment, examination of patient, obtai dipesh history from patient or surrogate, ordering and performing treatments and i nterventions, ordering and review of laboratory studies, ordering and review of radiographic studies, pulse oximetry, re-evaluation of patient's condition and r eview of old charts. [facility], NON [facility]PT 2019-05-04 18:08:00Reason for exam:->weaknessShould this be performed at the bedside?->YesFINAL REPORT EXAM: Chest one view COMPARISON: December 22, 2018 Clinical history: Weakness FINDINGS: There is persistent cardiomegaly. There is interval improvement in pulmonary edema. The right internal jugular chest tunneled dialysis catheter appears unchanged in position. The regional osseous structures are unremarkable Signed: Samara Haines MDReport Verified Date/Time: 05/04/2019 18:08:08 Reading Location: [address] Transitional Reading Room chest 1 view portable / [id number] 18:08:00Interface, External Ris In - 05/04/2019 6:10 PM CDTFINAL REPORT EXAM: Chest one view COMPARISON: December 22, 2018 Clinical history: Weakness FINDINGS: There is persistent cardiomegaly. There is interval improvement in pulmonary edema. The right internal jugular chest tunneled dialysis catheter appears unchanged in position. The regional osseous structures are unremarkable Signed: Sadiq Haines MDReport Verified Date/Time: 05/04/2019 18:08:08 Reading Location: [address] Transitional Reading [facility] [id number] 11:09:00* Test Item Value Reference Range Interpretation Comments SODIUM (BEAKER) (test code = 381) 134 meq/L 136-145 L POTASSIUM (BEAKER) (test code = 379) 3.9 meq/L 3.5-5.1 CHLORIDE (BEAKER) (test code = 382) 98 meq/L 98-107 CO2 (BEAKER) (test code = 355) 26 meq/L 22-29 BLOOD UREA NITROGEN (BEAKER) (test code = 354) 33 mg/dL 7-21 H CREATININE (BEAKER) (test code = 358) 3.74 mg/dL 0.57-1.25 H GLUCOSE RANDOM (BEAKER) (test code = 652) 164 mg/dL 70-105 H CALCIUM (BEAKER) (test code = 697) 9.4 mg/dL 8.4-10.2 EGFR (BEAKER) (test code = 1092) 18 mL/min/1.73 sq m ESTIMATED GFR IS NOT ACCURATE CREATININE CLEARANCE IN PREDICTING GLOMERULAR FILTRATION RATE. ESTIMATED GFR IS NOT APPLICABLE FOR DIALYSIS PATIENTS. Hvac R Tech ID - LMSpecimen slightly ictericHEPATIC FUNCTION [id number] 11:04:00* Test Item Value Reference Range Interpretation Comments TOTAL PROTEIN (BEAKER) (test code = 770) 6.9 gm/dL 6.0-8.3 ALBUMIN (BEAKER) (test code = 1145) 3.7 g/dL 3.5-5.0 BILIRUBIN TOTAL (BEAKER) (test code = 377) 3.7 mg/dL 0.2-1.2 H BILIRUBIN DIRECT (BEAKER) (test code = 706) 1.8 mg/dL 0.1-0.5 H ALKALINE PHOSPHATASE (BEAKER) (test code = 346) 186 U/L 40-150 H AST (SGOT) (BEAKER) (test code = 353) 24 U/L 5-34 ALT (SGPT) (BEAKER) (test code = 347) 12 U/L 6-55 Hvac R Tech ID - LMSpecimen slightly ictericPROTHROMBIN [id number] 10:47:00 * Test Item Value Reference Range Interpretation Comments PROTIME (BEAKER) (test code = 759) 16.4 seconds 11.9-14.2 H INR (BEAKER) (test code = 370) 1.4 <=5.9 Effective 07/24/2018: PT Reference Range ChangeNew: 11.9-14.2 Previous: 11.7-14. 7RECOMMENDED COUMADIN/WARFARIN INR THERAPY RANGESSTANDARD DOSE: 2.0-3.0 Include s: PROPHYLAXIS for venous thrombosis, systemic embolization; TREATMENT for venou s thrombosis and/or pulmonary embolus.HIGH RISK: Target INR is 2.5-3.5 for patie nts wiht mechanical heart valves.CBC W/PLT COUNT & AUTO [id number] 10:40:00* Test Item Value Reference Range Interpretation Comments WHITE BLOOD CELL COUNT (BEAKER) (test code = 775) 7.1 K/ L 3.5- 10.5 RED BLOOD CELL COUNT (BEAKER) (test code = 761) 2.81 M/ L 4.63-6 .08 L HEMOGLOBIN (BEAKER) (test code = 410) 8.2 GM/DL 13.7-17.5 L HEMATOCRIT (BEAKER) (test code = 411) 25.3 % 40.1-51.0 L MEAN CORPUSCULAR VOLUME (BEAKER) (test code = 753) 90.0 fL 79. 0-92.2 MEAN CORPUSCULAR HEMOGLOBIN (BEAKER) (test code = 751) 29.2 pg 25.7-32.2 MEAN CORPUSCULAR HEMOGLOBIN CONC (BEAKER) (test code = 752) 32.4 GM/DL 32.3-36.5 RED CELL DISTRIBUTION WIDTH (BEAKER) (test code = 412) 13.5 % 11.6-14.4 PLATELET COUNT (BEAKER) (test code = 756) 163 K/CU MM 150-450 MEAN PLATELET VOLUME (BEAKER) (test code = 754) 9.0 fL 9.4-12 .4 L NUCLEATED RED BLOOD CELLS (BEAKER) (test code = 413) 0 /100 WBC 0 -0 NEUTROPHILS RELATIVE PERCENT (BEAKER) (test code = 429) 71 % LYMPHOCYTES RELATIVE PERCENT (BEAKER) (test code = 430) 15 % MONOCYTES RELATIVE PERCENT (BEAKER) (test code = 431) 11 % EOSINOPHILS RELATIVE PERCENT (BEAKER) (test code = 432) 2 % BASOPHILS RELATIVE PERCENT (BEAKER) (test code = 437) 1 % NEUTROPHILS ABSOLUTE COUNT (BEAKER) (test code = 670) 5.02 K/ L 1.78-5.38 LYMPHOCYTES ABSOLUTE COUNT (BEAKER) (test code = 414) 1.07 K/ L 1.32-3.57 L MONOCYTES ABSOLUTE COUNT (BEAKER) (test code = 415) 0.79 K/ L 0. 30-0.82 EOSINOPHILS ABSOLUTE COUNT (BEAKER) (test code = 416) 0.15 K/ L 0.04-0.54 BASOPHILS ABSOLUTE COUNT (BEAKER) (test code = 417) 0.06 K/ L 0. 01-0.08 IMMATURE GRANULOCYTES-RELATIVE PERCENT (BEAKER) (test code = 2801) 0 % 0-1 BASIC METABOLIC [id number] 11:22:00* Test Item Value Reference Range Interpretation Comments SODIUM (BEAKER) (test code = 381) 138 meq/L 136-145 POTASSIUM (BEAKER) (test code = 379) 3.9 meq/L 3.5-5.1 CHLORIDE (BEAKER) (test code = 382) 101 meq/L 98-107 CO2 (BEAKER) (test code = 355) 33 meq/L 22-29 H BLOOD UREA NITROGEN (BEAKER) (test code = 354) 23 mg/dL 7-21 H CREATININE (BEAKER) (test code = 358) 3.31 mg/dL 0.57-1.25 H GLUCOSE RANDOM (BEAKER) (test code = 652) 133 mg/dL 70-105 H CALCIUM (BEAKER) (test code = 697) 9.4 mg/dL 8.4-10.2 EGFR (BEAKER) (test code = 1092) 21 mL/min/1.73 sq m ESTIMATED GFR IS NOT ACCURATE CREATININE CLEARANCE IN PREDICTING GLOMERULAR FILTRATION RATE. ESTIMATED GFR IS NOT APPLICABLE FOR DIALYSIS PATIENTS. Hvac R Tech ID - NTPSpecimen slightly ictericHEPATIC FUNCTION [id number] 11:09:00* Test Item Value Reference Range Interpretation Comments TOTAL PROTEIN (BEAKER) (test code = 770) 6.7 gm/dL 6.0-8.3 ALBUMIN (BEAKER) (test code = 1145) 3.5 g/dL 3.5-5.0 BILIRUBIN TOTAL (BEAKER) (test code = 377) 3.5 mg/dL 0.2-1.2 H BILIRUBIN DIRECT (BEAKER) (test code = 706) 2.1 mg/dL 0.1-0.5 H ALKALINE PHOSPHATASE (BEAKER) (test code = 346) 177 U/L 40-150 H AST (SGOT) (BEAKER) (test code = 353) 33 U/L 5-34 ALT (SGPT) (BEAKER) (test code = 347) 16 U/L 6-55 Hvac R Tech ID - NTPSpecimen slightly ictericCBC W/PLT COUNT & AUTO DIFFERENTIAL 2019-03-14 11:08:00* Test Item Value Reference Range Interpretation Comments WHITE BLOOD CELL COUNT (BEAKER) (test code = 775) 7.8 K/ L 3.5- 10.5 RED BLOOD CELL COUNT (BEAKER) (test code = 761) 2.46 M/ L 4.63-6 .08 L HEMOGLOBIN (BEAKER) (test code = 410) 7.7 GM/DL 13.7-17.5 L HEMATOCRIT (BEAKER) (test code = 411) 24.0 % 40.1-51.0 L MEAN CORPUSCULAR VOLUME (BEAKER) (test code = 753) 97.6 fL 79. 0-92.2 H MEAN CORPUSCULAR HEMOGLOBIN (BEAKER) (test code = 751) 31.3 pg 25.7-32.2 MEAN CORPUSCULAR HEMOGLOBIN CONC (BEAKER) (test code = 752) 32.1 GM/DL 32.3-36.5 L RED CELL DISTRIBUTION WIDTH (BEAKER) (test code = 412) 14.2 % 11.6-14.4 PLATELET COUNT (BEAKER) (test code = 756) 99 K/CU MM 150-450 L MEAN PLATELET VOLUME (BEAKER) (test code = 754) 9.5 fL 9.4-12 .4 NUCLEATED RED BLOOD CELLS (BEAKER) (test code = 413) 0 /100 WBC 0 -0 NEUTROPHILS RELATIVE PERCENT (BEAKER) (test code = 429) 60 % LYMPHOCYTES RELATIVE PERCENT (BEAKER) (test code = 430) 24 % MONOCYTES RELATIVE PERCENT (BEAKER) (test code = 431) 9 % EOSINOPHILS RELATIVE PERCENT (BEAKER) (test code = 432) 6 % BASOPHILS RELATIVE PERCENT (BEAKER) (test code = 437) 1 % NEUTROPHILS ABSOLUTE COUNT (BEAKER) (test code = 670) 4.66 K/ L 1.78-5.38 LYMPHOCYTES ABSOLUTE COUNT (BEAKER) (test code = 414) 1.84 K/ L 1.32-3.57 MONOCYTES ABSOLUTE COUNT (BEAKER) (test code = 415) 0.72 K/ L 0. 30-0.82 EOSINOPHILS ABSOLUTE COUNT (BEAKER) (test code = 416) 0.49 K/ L 0.04-0.54 BASOPHILS ABSOLUTE COUNT (BEAKER) (test code = 417) 0.08 K/ L 0. 01-0.08 IMMATURE GRANULOCYTES-RELATIVE PERCENT (BEAKER) (test code = 2801) 0 % 0-1 No clotPROTHROMBIN TIME/[id number] 11:03:00* Test Item Value Reference Range Interpretation Comments PROTIME (BEAKER) (test code = 759) 17.1 seconds 11.9-14.2 H INR (BEAKER) (test code = 370) 1.4 <=5.9 Effective 07/24/2018: PT Reference Range ChangeNew: 11.9-14.2 Previous: 11.7-14. 7RECOMMENDED COUMADIN/WARFARIN INR THERAPY RANGESSTANDARD DOSE: 2.0-3.0 Include s: PROPHYLAXIS for venous thrombosis, systemic embolization; TREATMENT for venou s thrombosis and/or pulmonary embolus.HIGH RISK: Target INR is 2.5-3.5 for patie nts wiht mechanical heart valves.COMPREHENSIVE METABOLIC [id number] 12:23:00* Test Item Value Reference Range Interpretation Comments TOTAL PROTEIN (BEAKER) (test code = 770) 7.1 gm/dL 6.0-8.3 ALBUMIN (BEAKER) (test code = 1145) 3.5 g/dL 3.5-5.0 ALKALINE PHOSPHATASE (BEAKER) (test code = 346) 182 U/L 40-150 H BILIRUBIN TOTAL (BEAKER) (test code = 377) 3.6 mg/dL 0.2-1.2 H SODIUM (BEAKER) (test code = 381) 138 meq/L 136-145 POTASSIUM (BEAKER) (test code = 379) 4.1 meq/L 3.5-5.1 CHLORIDE (BEAKER) (test code = 382) 107 meq/L 98-107 CO2 (BEAKER) (test code = 355) 23 meq/L 22-29 BLOOD UREA NITROGEN (BEAKER) (test code = 354) 31 mg/dL 7-21 H CREATININE (BEAKER) (test code = 358) 4.87 mg/dL 0.57-1.25 H GLUCOSE RANDOM (BEAKER) (test code = 652) 111 mg/dL 70-105 H CALCIUM (BEAKER) (test code = 697) 9.4 mg/dL 8.4-10.2 AST (SGOT) (BEAKER) (test code = 353) 30 U/L 5-34 ALT (SGPT) (BEAKER) (test code = 347) 15 U/L 6-55 EGFR (BEAKER) (test code = 1092) 13 mL/min/1.73 sq m ESTIMATED GFR IS NOT ACCURATE CREATININE CLEARANCE IN PREDICTING GLOMERULAR FILTRATION RATE. ESTIMATED GFR IS NOT APPLICABLE FOR DIALYSIS PATIENTS. Specimen slightly ictericBILIRUBIN, [id number] 12:18:00* Test Item Value Reference Range Interpretation Comments BILIRUBIN DIRECT (BEAKER) (test code = 706) 2.4 mg/dL 0.1-0.5 H CBC W/PLT COUNT & AUTO [id number] 12:16:00* Test Item Value Reference Range Interpretation Comments WHITE BLOOD CELL COUNT (BEAKER) (test code = 775) 6.4 K/ L 3.5- 10.5 RED BLOOD CELL COUNT (BEAKER) (test code = 761) 2.27 M/ L 4.63-6 .08 L HEMOGLOBIN (BEAKER) (test code = 410) 7.3 GM/DL 13.7-17.5 L HEMATOCRIT (BEAKER) (test code = 411) 23.2 % 40.1-51.0 L MEAN CORPUSCULAR VOLUME (BEAKER) (test code = 753) 102.2 fL 79. 0-92.2 H MEAN CORPUSCULAR HEMOGLOBIN (BEAKER) (test code = 751) 32.2 pg 25.7-32.2 MEAN CORPUSCULAR HEMOGLOBIN CONC (BEAKER) (test code = 752) 31.5 GM/DL 32.3-36.5 L RED CELL DISTRIBUTION WIDTH (BEAKER) (test code = 412) 17.8 % 11.6-14.4 H PLATELET COUNT (BEAKER) (test code = 756) 180 K/CU MM 150-450 MEAN PLATELET VOLUME (BEAKER) (test code = 754) 9.1 fL 9.4-12 .4 L NUCLEATED RED BLOOD CELLS (BEAKER) (test code = 413) 0 /100 WBC 0 -0 NEUTROPHILS RELATIVE PERCENT (BEAKER) (test code = 429) 69 % LYMPHOCYTES RELATIVE PERCENT (BEAKER) (test code = 430) 17 % MONOCYTES RELATIVE PERCENT (BEAKER) (test code = 431) 7 % EOSINOPHILS RELATIVE PERCENT (BEAKER) (test code = 432) 6 % BASOPHILS RELATIVE PERCENT (BEAKER) (test code = 437) 1 % NEUTROPHILS ABSOLUTE COUNT (BEAKER) (test code = 670) 4.41 K/ L 1.78-5.38 LYMPHOCYTES ABSOLUTE COUNT (BEAKER) (test code = 414) 1.10 K/ L 1.32-3.57 L MONOCYTES ABSOLUTE COUNT (BEAKER) (test code = 415) 0.44 K/ L 0. 30-0.82 EOSINOPHILS ABSOLUTE COUNT (BEAKER) (test code = 416) 0.38 K/ L 0.04-0.54 BASOPHILS ABSOLUTE COUNT (BEAKER) (test code = 417) 0.05 K/ L 0. 01-0.08 IMMATURE GRANULOCYTES-RELATIVE PERCENT (BEAKER) (test code = 2801) 1 % 0-1 PROTHROMBIN TIME/[id number] 12:09:00* Test Item Value Reference Range Interpretation Comments PROTIME (BEAKER) (test code = 759) 16.5 seconds 11.9-14.2 H INR (BEAKER) (test code = 370) 1.4 <=5.9 Effective 07/24/2018: PT Reference Range ChangeNew: 11.9-14.2 Previous: 11.7-14. 7RECOMMENDED COUMADIN/WARFARIN INR THERAPY RANGESSTANDARD DOSE: 2.0-3.0 Include s: PROPHYLAXIS for venous thrombosis, systemic embolization; TREATMENT for venou s thrombosis and/or pulmonary embolus.HIGH RISK: Target INR is 2.5-3.5 for patie nts wiht mechanical heart valves.HLA TYPING [id number] 21:42:00* Test Item Value Reference Range Interpretation Comments HLA-A AG1 (test code = 3466) 3 HLA-A AG2 (test code = 3467) 68 HLA-B AG1 (test code = 3468) 7 HLA-B AG2 (test code = 3469) 35 HLA-C AG1 (test code = 3470) 7 HLA-C AG2 (test code = 3471) 7 HLA-B BW1 (test code = 3234) 6 HLA-B BW2 (test code = 3235) 6 PHILLIP (test code = PHILLIP) Disclaimer: This test was de veloped and its performance characteristics determined by the [facility] Laboratory. It has not been cleared or approved by the U.S. Food and Drug Administration. The FDA has determined that such clearance or approval is not necessary. This test is used for clinical purposes. It should not be regarded as investigational or for research. This laboratory is certified under the Clinical Laboratory Improvement Amendments of 1988 (CLIA-88) as qualified to perform high complexity clinical laboratory testing. [facility] [id number] 21:42:00* Test Item Value Reference Range Interpretation Comments HLA-DR AG1 (test code = 3465) 15 HLA-DR AG2 (test code = 3472) 4 HLA-DR AG4-2 (test code = 3241) 53 HLA-DR AG5-1 (test code = 3242) 51 HLA-DQA1 AG 1-1 (test code = 3463) 1 HLA-DQA1 AG 1-2 (test code = 3464) 3 HLA-DQB1 AG 1-1 (test code = 3244) 6 HLA-DQB1 AG 1-2 (test code = 3245) 8 HLA-DPA1 AG 1-1 (test code = 3246) 1 HLA-DPA1 AG 1-2 (test code = 3247) 1 HLA-DPB1 AG 1-1 (test code = 3248) 02:01 HLA-DPB1 AG 1-2 (test code = 3249) 04:02 PHILLIP (test code = PHILLIP) Disclaimer: This test was de veloped and its performance characteristics determined by the [facility] Laboratory. It has not been cleared or approved by the U.S. Food and Drug Administration. The FDA has determined that such clearance or approval is not necessary. This test is used for clinical purposes. It should not be regarded as investigational or for research. This laboratory is certified under the Clinical Laboratory Improvement Amendments of 1988 (CLIA-88) as qualified to perform high complexity clinical laboratory testing. [facility]COMPRE[facility]ENSIVE METABOLIC [id number] 12:19:00* Test Item Value Reference Range Interpretation Comments TOTAL PROTEIN (BEAKER) (test code = 770) 7.7 gm/dL 6.0-8.3 ALBUMIN (BEAKER) (test code = 1145) 3.4 g/dL 3.5-5.0 L ALKALINE PHOSPHATASE (BEAKER) (test code = 346) 171 U/L 40-150 H BILIRUBIN TOTAL (BEAKER) (test code = 377) 6.4 mg/dL 0.2-1.2 H SODIUM (BEAKER) (test code = 381) 136 meq/L 136-145 POTASSIUM (BEAKER) (test code = 379) 3.6 meq/L 3.5-5.1 CHLORIDE (BEAKER) (test code = 382) 101 meq/L 98-107 CO2 (BEAKER) (test code = 355) 26 meq/L 22-29 BLOOD UREA NITROGEN (BEAKER) (test code = 354) 17 mg/dL 7-21 CREATININE (BEAKER) (test code = 358) 5.53 mg/dL 0.57-1.25 H GLUCOSE RANDOM (BEAKER) (test code = 652) 100 mg/dL 70-105 CALCIUM (BEAKER) (test code = 697) 9.5 mg/dL 8.4-10.2 AST (SGOT) (BEAKER) (test code = 353) 40 U/L 5-34 H ALT (SGPT) (BEAKER) (test code = 347) 15 U/L 6-55 EGFR (BEAKER) (test code = 1092) 12 mL/min/1.73 sq m ESTIMATED GFR IS NOT ACCURATE CREATININE CLEARANCE IN PREDICTING GLOMERULAR FILTRATION RATE. ESTIMATED GFR IS NOT APPLICABLE FOR DIALYSIS PATIENTS. Specimen moderately ictericBILIRUBIN, [id number] 12:18:00* Test Item Value Reference Range Interpretation Comments BILIRUBIN DIRECT (BEAKER) (test code = 706) 4.1 mg/dL 0.1-0.5 H U/S, PELVIS, WITH [id number] 11:35:00Reason for Exam:->esrd/kidney transplant evaluationFINAL REPORT Pelvic ultrasound dated 02/03/2019. COMMENT: Real-time [...] IMPRESSION: Unremarkable pelvic vasculature. Signed: Keith Garcia Verified Date/Time: 02/03/2019 11:35:01 Reading Location: [address] Radiology Reading Room pelvis with [id number] 11:35:00Interface, External Ris In - 02/03/2019 11:37 AM CSTFINAL REPORT Pelvic ultrasound dated 02/03/2019. COMMENT: Real-time transpelvic ultrasound was performed. Color Doppler and spectral analysis of hepatic vasculature were obtained. The distal abdominal aorta is normal in caliber measuring 1.7 cm. The right common iliac artery measures 1.1 cm. The right external iliac artery measures 1.1 cm. The right internal iliac artery is not visualized. The left com mon iliac artery measures 1.1 cm. The left external iliac artery measures 1.0 cm . The left internal iliac artery is not visualized. The bilateral common and ext ernal iliac veins are patent. IMPRESSION: Unremarkable pelvic vasculature. Sign ed: Keith Garcia Verified Date/Time: 02/03/2019 11:35:01 Reading Locati on: [address] Radiology Reading Room [facility] HospitalPROTHROMBIN TIME/[id number] 11:12:00* Test Item Value Reference Range Interpretation Comments PROTIME (BEAKER) (test code = 759) 17.6 seconds 11.9-14.2 H INR (BEAKER) (test code = 370) 1.5 <=5.9 Effective 07/24/2018: PT Reference Range ChangeNew: 11.9-14.2 Previous: 11.7-14. 7RECOMMENDED COUMADIN/WARFARIN INR THERAPY RANGESSTANDARD DOSE: 2.0-3.0 Include s: PROPHYLAXIS for venous thrombosis, systemic embolization; TREATMENT for venou s thrombosis and/or pulmonary embolus.HIGH RISK: Target INR is 2.5-3.5 for patie nts wiht mechanical heart valves.CBC W/PLT COUNT & AUTO [id number] 11:10:00* Test Item Value Reference Range Interpretation Comments WHITE BLOOD CELL COUNT (BEAKER) (test code = 775) 8.6 K/ L 3.5- 10.5 RED BLOOD CELL COUNT (BEAKER) (test code = 761) 2.27 M/ L 4.63-6 .08 L HEMOGLOBIN (BEAKER) (test code = 410) 7.3 GM/DL 13.7-17.5 L HEMATOCRIT (BEAKER) (test code = 411) 23.0 % 40.1-51.0 L MEAN CORPUSCULAR VOLUME (BEAKER) (test code = 753) 101.3 fL 79. 0-92.2 H MEAN CORPUSCULAR HEMOGLOBIN (BEAKER) (test code = 751) 32.2 pg 25.7-32.2 MEAN CORPUSCULAR HEMOGLOBIN CONC (BEAKER) (test code = 752) 31.7 GM/DL 32.3-36.5 L RED CELL DISTRIBUTION WIDTH (BEAKER) (test code = 412) 17.7 % 11.6-14.4 H PLATELET COUNT (BEAKER) (test code = 756) 164 K/CU MM 150-450 MEAN PLATELET VOLUME (BEAKER) (test code = 754) 9.6 fL 9.4-12 .4 NUCLEATED RED BLOOD CELLS (BEAKER) (test code = 413) 0 /100 WBC 0 -0 NEUTROPHILS RELATIVE PERCENT (BEAKER) (test code = 429) 64 % LYMPHOCYTES RELATIVE PERCENT (BEAKER) (test code = 430) 19 % MONOCYTES RELATIVE PERCENT (BEAKER) (test code = 431) 9 % EOSINOPHILS RELATIVE PERCENT (BEAKER) (test code = 432) 7 % BASOPHILS RELATIVE PERCENT (BEAKER) (test code = 437) 1 % NEUTROPHILS ABSOLUTE COUNT (BEAKER) (test code = 670) 5.50 K/ L 1.78-5.38 H LYMPHOCYTES ABSOLUTE COUNT (BEAKER) (test code = 414) 1.60 K/ L 1.32-3.57 MONOCYTES ABSOLUTE COUNT (BEAKER) (test code = 415) 0.80 K/ L 0. 30-0.82 EOSINOPHILS ABSOLUTE COUNT (BEAKER) (test code = 416) 0.62 K/ L 0.04-0.54 H BASOPHILS ABSOLUTE COUNT (BEAKER) (test code = 417) 0.08 K/ L 0. 01-0.08 IMMATURE GRANULOCYTES-RELATIVE PERCENT (BEAKER) (test code = 2801) 1 % 0-1 AB SPECIFICITY CLASS [id number] 09:48:00* Test Item Value Reference Range Interpretation Comments AB Specificity Class I (test code = 3457) NO CLASS I A NTIBODY DETECTED WITH MFIs > 4000 PHILLIP (test code = PHILLIP) Disclaimer: This test was de veloped and its performance characteristics determined by the [facility] Laboratory. It has not been cleared or approved by the U.S. Food and Drug Administration. The FDA has determined that such clearance or approval is not necessary. This test is used for clinical purposes. It should not be regarded as investigational or for research. This laboratory is certified under the Clinical Laboratory Improvement Amendments of 1988 (CLIA-88) as qualified to perform high complexity clinical laboratory testing. [facility] HospitalFLOW PRA CLASS I WITH REFLEX TO ANTIBODY [id number] 10:06:00* Test Item Value Reference Range Interpretation Comments Flow Class I Percent Positive (test code = 3229) 20 PHILLIP (test code = PHILLIP) Disclaimer: This test was de veloped and its performance characteristics determined by the [facility] Laboratory. It has not been cleared or approved by the U.S. Food and Drug Administration. The FDA has determined that such clearance or approval is not necessary. This test is used for clinical purposes. It should not be regarded as investigational or for research. This laboratory is certified under the Clinical Laboratory Improvement Amendments of 1988 (CLIA-88) as qualified to perform high complexity clinical laboratory testing. [facility] HospitalFLOW PRA CLASS II WITH REFLEX TO ANTIBODY [id number] 10:06:00* Test Item Value Reference Range Interpretation Comments Flow Class II Percent Positive (test code = 3231) 0 PHILLIP (test code = PHILLIP) Disclaimer: This test was de veloped and its performance characteristics determined by the [facility] Laboratory. It has not been cleared or approved by the U.S. Food and Drug Administration. The FDA has determined that such clearance or approval is not necessary. This test is used for clinical purposes. It should not be regarded as investigational or for research. This laboratory is certified under the Clinical Laboratory Improvement Amendments of 1988 (CLIA-88) as qualified to perform high complexity clinical laboratory testing. [facility] HospitalMISCELLANEOUS LAB [id number] 07:41:00* Test Item Value Reference Range Interpretation Comments SCAN RESULT (test code = 4691493) [id number] 19:31:00* Test Item Value Reference Range Interpretation Comments Haptoglobin (test code = 4542-7) 14 mg/dL 14-258 Lab Interpretation (test code = 26594-6) Normal [facility] HospitalHAPTOGLOBIN2019-11-23 19:31:00* Test Item Value Reference Range Interpretation Comments HAPTOGLOBIN (BEAKER) (test code = 366) 14 mg/dL 14-258 IRON, TIBC, % SAT. (WITHOUT FERRITIN)2019-01-18 19:31:00* Test Item Value Reference Range Interpretation Comments IRON (BEAKER) (test code = 547) 79.0 ug/dL 40.0-160.0 TOTAL IRON BINDING CAPACITY (BEAKER) (test code = 769) 104 ug/dL 250-450 L IRON % SATURATION (2) (BEAKER) (test code = 2590) 76 % 20-5 5 H Vitamin B12 and [id number] 19:16:00* Test Item Value Reference Range Interpretation Comments Vitamin B12 (test code = 2132-9) 1988 pg/mL 213-816 H Folate (test code = 2284-8) 17.8 ng/mL >=7.0 Lab Interpretation (test code = 04061-8) Abnormal [facility] HospitalVITAMIN B12 AND [id number] 19:16:00* Test Item Value Reference Range Interpretation Comments VITAMIN B12 (BEAKER) (test code = 774) 1988 pg/mL 213-816 H FOLATE (BEAKER) (test code = 362) 17.8 ng/mL >=7.0 [id number] 19:04:00* Test Item Value Reference Range Interpretation Comments FERRITIN (BEAKER) (test code = 361) 1523 ng/mL 5-275 H Lactate dehydrogenase (LDH)2019-01-18 18:27:00* Test Item Value Reference Range Interpretation Comments LDH (test code = 2532-0) 192 U/L 125-220 Lab Interpretation (test code = 85099-3) Normal [facility] HospitalLACTATE [facility] 18:27:00* Test Item Value Reference Range Interpretation Comments LACTATE DEHYDROGENASE (BEAKER) (test code = 635) 192 U/L 125-2 20 Hemoglobin and [id number] 11:26:00* Test Item Value Reference Range Interpretation Comments Hemoglobin (test code = 786-4) 7.5 13.7- 17.5 GM/DL L Hematocrit (test code = 4544-3) 23.0 % 40.1-51 L Lab Interpretation (test code = 97887-3) [facility] [id number] 11:26:00* Test Item Value Reference Range Interpretation Comments HEMOGLOBIN (BEAKER) (test code = 410) 7.5 GM/DL 13.7-17.5 L HEMATOCRIT (BEAKER) (test code = 411) 23.0 % 40.1-51.0 L CBC (Hemogram only)2019-01-18 03:09:00* Test Item Value Reference Range Interpretation Comments WBC (test code = 6690-2) 6.6 3.5- 10.5 K/L RBC (test code = 789-8) 2.11 4.63- 6.08 M/L L MCHC (test code = 786-4) 33.2 32.3- 36.5 GM/DL L Hematocrit (test code = 4544-3) 20.2 % 40.1-51 L MCV (test code = 787-2) 95.7 fL 79-92.2 H MCH (test code = 785-6) 31.8 pg 25.7-32.2 RDW (test code = 788-0) 17.3 % 11.6-14.4 H Platelets (test code = 777-3) 74 150- 450 K/CU MM L MPV (test code = 19592-2) 10.1 fL 9.4-12.4 nRBC (test code = 413) 0 0- 0 /100 WBC Lab Interpretation (test code = 47925-2) [facility]18 03:09:00* Test Item Value Reference Range Interpretation Comments WHITE BLOOD CELL COUNT (BEAKER) (test code = 775) 6.6 K/ L 3.5- 10.5 RED BLOOD CELL COUNT (BEAKER) (test code = 761) 2.11 M/ L 4.63-6 .08 L HEMOGLOBIN (BEAKER) (test code = 410) 6.7 GM/DL 13.7-17.5 L HEMATOCRIT (BEAKER) (test code = 411) 20.2 % 40.1-51.0 L MEAN CORPUSCULAR VOLUME (BEAKER) (test code = 753) 95.7 fL 79. 0-92.2 H MEAN CORPUSCULAR HEMOGLOBIN (BEAKER) (test code = 751) 31.8 pg 25.7-32.2 MEAN CORPUSCULAR HEMOGLOBIN CONC (BEAKER) (test code = 752) 33.2 GM/DL 32.3-36.5 RED CELL DISTRIBUTION WIDTH (BEAKER) (test code = 412) 17.3 % 11.6-14.4 H PLATELET COUNT (BEAKER) (test code = 756) 74 K/CU MM 150-450 L MEAN PLATELET VOLUME (BEAKER) (test code = 754) 10.1 fL 9.4-12 .4 NUCLEATED RED BLOOD CELLS (BEAKER) (test code = 413) 0 /100 WBC 0 -0 Alpha fetoprotein (AFP), tumor [id number] 17:58:00* Test Item Value Reference Range Interpretation Comments Alpha-Fetoprotein (test code = 1834-1) 2.7 ng/mL <10.0 Lab Interpretation (test code = 89061-7) [facility] T[facility]OR [id number] 17:58:00* Test Item Value Reference Range Interpretation Comments ALPHA-FETOPROTEIN (BEAKER) (test code = 1094) 2.7 ng/mL <10.0 BASIC METABOLIC [id number] 17:09:00* Test Item Value Reference Range Interpretation Comments SODIUM (BEAKER) (test code = 381) 140 meq/L 136-145 POTASSIUM (BEAKER) (test code = 379) 4.1 meq/L 3.5-5.1 CHLORIDE (BEAKER) (test code = 382) 102 meq/L 98-107 CO2 (BEAKER) (test code = 355) 29 meq/L 22-29 BLOOD UREA NITROGEN (BEAKER) (test code = 354) 10 mg/dL 7-21 CREATININE (BEAKER) (test code = 358) 4.76 mg/dL 0.57-1.25 H GLUCOSE RANDOM (BEAKER) (test code = 652) 101 mg/dL 70-105 CALCIUM (BEAKER) (test code = 697) 9.2 mg/dL 8.4-10.2 EGFR (BEAKER) (test code = 1092) 14 mL/min/1.73 sq m ESTIMATED GFR IS NOT ACCURATE CREATININE CLEARANCE IN PREDICTING GLOMERULAR FILTRATION RATE. ESTIMATED GFR IS NOT APPLICABLE FOR DIALYSIS PATIENTS. Specimen moderately ictericHEPATIC FUNCTION [id number] 17:08:00* Test Item Value Reference Range Interpretation Comments TOTAL PROTEIN (BEAKER) (test code = 770) 7.6 gm/dL 6.0-8.3 ALBUMIN (BEAKER) (test code = 1145) 3.4 g/dL 3.5-5.0 L BILIRUBIN TOTAL (BEAKER) (test code = 377) 9.1 mg/dL 0.2-1.2 H BILIRUBIN DIRECT (BEAKER) (test code = 706) 6.2 mg/dL 0.1-0.5 H ALKALINE PHOSPHATASE (BEAKER) (test code = 346) 154 U/L 40-150 H AST (SGOT) (BEAKER) (test code = 353) 50 U/L 5-34 H ALT (SGPT) (BEAKER) (test code = 347) 20 U/L 6-55 Specimen moderately ictericCBC W/PLT COUNT & AUTO [id number] 16:55:00* Test Item Value Reference Range Interpretation Comments WHITE BLOOD CELL COUNT (BEAKER) (test code = 775) 5.8 K/ L 3.5- 10.5 RED BLOOD CELL COUNT (BEAKER) (test code = 761) 1.87 M/ L 4.63-6 .08 L HEMOGLOBIN (BEAKER) (test code = 410) 6.1 GM/DL 13.7-17.5 L HEMATOCRIT (BEAKER) (test code = 411) 18.4 % 40.1-51.0 L MEAN CORPUSCULAR VOLUME (BEAKER) (test code = 753) 98.4 fL 79. 0-92.2 H MEAN CORPUSCULAR HEMOGLOBIN (BEAKER) (test code = 751) 32.6 pg 25.7-32.2 H MEAN CORPUSCULAR HEMOGLOBIN CONC (BEAKER) (test code = 752) 33.2 GM/DL 32.3-36.5 RED CELL DISTRIBUTION WIDTH (BEAKER) (test code = 412) 17.7 % 11.6-14.4 H PLATELET COUNT (BEAKER) (test code = 756) 105 K/CU MM 150-450 L MEAN PLATELET VOLUME (BEAKER) (test code = 754) 9.9 fL 9.4-12 .4 NUCLEATED RED BLOOD CELLS (BEAKER) (test code = 413) 0 /100 WBC 0 -0 NEUTROPHILS RELATIVE PERCENT (BEAKER) (test code = 429) 47 % LYMPHOCYTES RELATIVE PERCENT (BEAKER) (test code = 430) 25 % MONOCYTES RELATIVE PERCENT (BEAKER) (test code = 431) 11 % EOSINOPHILS RELATIVE PERCENT (BEAKER) (test code = 432) 16 % BASOPHILS RELATIVE PERCENT (BEAKER) (test code = 437) 0 % NEUTROPHILS ABSOLUTE COUNT (BEAKER) (test code = 670) 2.71 K/ L 1.78-5.38 LYMPHOCYTES ABSOLUTE COUNT (BEAKER) (test code = 414) 1.45 K/ L 1.32-3.57 MONOCYTES ABSOLUTE COUNT (BEAKER) (test code = 415) 0.65 K/ L 0. 30-0.82 EOSINOPHILS ABSOLUTE COUNT (BEAKER) (test code = 416) 0.92 K/ L 0.04-0.54 H BASOPHILS ABSOLUTE COUNT (BEAKER) (test code = 417) 0.02 K/ L 0. 01-0.08 IMMATURE GRANULOCYTES-RELATIVE PERCENT (BEAKER) (test code = 2801) 0 % 0-1 PROTHROMBIN [id number] 16:52:00* Test Item Value Reference Range Interpretation Comments PROTIME (BEAKER) (test code = 759) 18.2 seconds 11.9-14.2 H INR (BEAKER) (test code = 370) 1.6 <=5.9 Effective 07/24/2018: PT Reference Range ChangeNew: 11.9-14.2 Previous: 11.7-14. 7RECOMMENDED COUMADIN/WARFARIN INR THERAPY RANGESSTANDARD DOSE: 2.0-3.0 Include s: PROPHYLAXIS for venous thrombosis, systemic embolization; TREATMENT for venou s thrombosis and/or pulmonary embolus.HIGH RISK: Target INR is 2.5-3.5 for patie nts wiht mechanical heart valves.BASIC METABOLIC [id number] 07:35:00* Test Item Value Reference Range Interpretation Comments SODIUM (BEAKER) (test code = 381) 133 meq/L 136-145 L POTASSIUM (BEAKER) (test code = 379) 4.4 meq/L 3.5-5.1 CHLORIDE (BEAKER) (test code = 382) 100 meq/L 98-107 CO2 (BEAKER) (test code = 355) 22 meq/L 22-29 BLOOD UREA NITROGEN (BEAKER) (test code = 354) 23 mg/dL 7-21 H CREATININE (BEAKER) (test code = 358) 6.67 mg/dL 0.57-1.25 H GLUCOSE RANDOM (BEAKER) (test code = 652) 89 mg/dL 70-105 CALCIUM (BEAKER) (test code = 697) 9.0 mg/dL 8.4-10.2 EGFR (BEAKER) (test code = 1092) 9 mL/min/1.73 sq m ESTIMATED GFR IS NOT ACCURATE CREATININE CLEARANCE IN PREDICTING GLOMERULAR FILTRATION RATE. ESTIMATED GFR IS NOT APPLICABLE FOR DIALYSIS PATIENTS. Specimen markedly [id number] 07:18:00* Test Item Value Reference Range Interpretation Comments MAGNESIUM (BEAKER) (test code = 627) 2.1 mg/dL 1.6-2.6 HEPATIC FUNCTION [id number] 07:18:00* Test Item Value Reference Range Interpretation Comments TOTAL PROTEIN (BEAKER) (test code = 770) 7.2 gm/dL 6.0-8.3 ALBUMIN (BEAKER) (test code = 1145) 3.3 g/dL 3.5-5.0 L BILIRUBIN TOTAL (BEAKER) (test code = 377) 10.7 mg/dL 0.2-1.2 H BILIRUBIN DIRECT (BEAKER) (test code = 706) 7.3 mg/dL 0.1-0.5 H ALKALINE PHOSPHATASE (BEAKER) (test code = 346) 138 U/L 40-150 AST (SGOT) (BEAKER) (test code = 353) 50 U/L 5-34 H ALT (SGPT) (BEAKER) (test code = 347) 16 U/L 6-55 Specimen markedly ictericPROTHROMBIN TIME/[id number] 06:41:00* Test Item Value Reference Range Interpretation Comments PROTIME (BEAKER) (test code = 759) 18.0 seconds 11.9-14.2 H INR (BEAKER) (test code = 370) 1.6 <=5.9 Effective 07/24/2018: PT Reference Range ChangeNew: 11.9-14.2 Previous: 11.7-14. 7RECOMMENDED COUMADIN/WARFARIN INR THERAPY RANGESSTANDARD DOSE: 2.0-3.0 Include s: PROPHYLAXIS for venous thrombosis, systemic embolization; TREATMENT for venou s thrombosis and/or pulmonary embolus.HIGH RISK: Target INR is 2.5-3.5 for patie nts wiht mechanical heart valves.CBC (HEMOGRAM ONLY)2019-01-06 06:32:00* Test Item Value Reference Range Interpretation Comments WHITE BLOOD CELL COUNT (BEAKER) (test code = 775) 11.2 K/ L 3.5- 10.5 H RED BLOOD CELL COUNT (BEAKER) (test code = 761) 2.32 M/ L 4.63-6 .08 L HEMOGLOBIN (BEAKER) (test code = 410) 7.3 GM/DL 13.7-17.5 L HEMATOCRIT (BEAKER) (test code = 411) 22.2 % 40.1-51.0 L MEAN CORPUSCULAR VOLUME (BEAKER) (test code = 753) 95.7 fL 79. 0-92.2 H MEAN CORPUSCULAR HEMOGLOBIN (BEAKER) (test code = 751) 31.5 pg 25.7-32.2 MEAN CORPUSCULAR HEMOGLOBIN CONC (BEAKER) (test code = 752) 32.9 GM/DL 32.3-36.5 RED CELL DISTRIBUTION WIDTH (BEAKER) (test code = 412) 16.5 % 11.6-14.4 H PLATELET COUNT (BEAKER) (test code = 756) 104 K/CU MM 150-450 L MEAN PLATELET VOLUME (BEAKER) (test code = 754) 10.2 fL 9.4-12 .4 NUCLEATED RED BLOOD CELLS (BEAKER) (test code = 413) 0 /100 WBC 0 -0 [id number] 05:08:00* Test Item Value Reference Range Interpretation Comments MAGNESIUM (BEAKER) (test code = 627) 2.0 mg/dL 1.6-2.6 HEPATIC FUNCTION [id number] 05:08:00* Test Item Value Reference Range Interpretation Comments TOTAL PROTEIN (BEAKER) (test code = 770) 7.0 gm/dL 6.0-8.3 ALBUMIN (BEAKER) (test code = 1145) 3.3 g/dL 3.5-5.0 L BILIRUBIN TOTAL (BEAKER) (test code = 377) 12.0 mg/dL 0.2-1.2 H BILIRUBIN DIRECT (BEAKER) (test code = 706) 7.4 mg/dL 0.1-0.5 H ALKALINE PHOSPHATASE (BEAKER) (test code = 346) 141 U/L 40-150 AST (SGOT) (BEAKER) (test code = 353) 58 U/L 5-34 H ALT (SGPT) (BEAKER) (test code = 347) 18 U/L 6-55 Specimen markedly ictericBASIC METABOLIC [id number] 05:08:00* Test Item Value Reference Range Interpretation Comments SODIUM (BEAKER) (test code = 381) 138 meq/L 136-145 POTASSIUM (BEAKER) (test code = 379) 4.1 meq/L 3.5-5.1 CHLORIDE (BEAKER) (test code = 382) 102 meq/L 98-107 CO2 (BEAKER) (test code = 355) 24 meq/L 22-29 BLOOD UREA NITROGEN (BEAKER) (test code = 354) 15 mg/dL 7-21 CREATININE (BEAKER) (test code = 358) 4.91 mg/dL 0.57-1.25 H GLUCOSE RANDOM (BEAKER) (test code = 652) 99 mg/dL 70-105 CALCIUM (BEAKER) (test code = 697) 9.1 mg/dL 8.4-10.2 EGFR (BEAKER) (test code = 1092) 13 mL/min/1.73 sq m ESTIMATED GFR IS NOT ACCURATE CREATININE CLEARANCE IN PREDICTING GLOMERULAR FILTRATION RATE. ESTIMATED GFR IS NOT APPLICABLE FOR DIALYSIS PATIENTS. Specimen markedly ictericPROTHROMBIN TIME/[id number] 04:55:00* Test Item Value Reference Range Interpretation Comments PROTIME (BEAKER) (test code = 759) 18.4 seconds 11.9-14.2 H INR (BEAKER) (test code = 370) 1.6 <=5.9 Effective 07/24/2018: PT Reference Range ChangeNew: 11.9-14.2 Previous: 11.7-14. 7RECOMMENDED COUMADIN/WARFARIN INR THERAPY RANGESSTANDARD DOSE: 2.0-3.0 Include s: PROPHYLAXIS for venous thrombosis, systemic embolization; TREATMENT for venou s thrombosis and/or pulmonary embolus.HIGH RISK: Target INR is 2.5-3.5 for patie nts wiht mechanical heart valves.CBC (HEMOGRAM ONLY)2019-01-05 04:53:00* Test Item Value Reference Range Interpretation Comments WHITE BLOOD CELL COUNT (BEAKER) (test code = 775) 10.0 K/ L 3.5- 10.5 RED BLOOD CELL COUNT (BEAKER) (test code = 761) 2.25 M/ L 4.63-6 .08 L HEMOGLOBIN (BEAKER) (test code = 410) 7.1 GM/DL 13.7-17.5 L HEMATOCRIT (BEAKER) (test code = 411) 21.3 % 40.1-51.0 L MEAN CORPUSCULAR VOLUME (BEAKER) (test code = 753) 94.7 fL 79. 0-92.2 H MEAN CORPUSCULAR HEMOGLOBIN (BEAKER) (test code = 751) 31.6 pg 25.7-32.2 MEAN CORPUSCULAR HEMOGLOBIN CONC (BEAKER) (test code = 752) 33.3 GM/DL 32.3-36.5 RED CELL DISTRIBUTION WIDTH (BEAKER) (test code = 412) 16.6 % 11.6-14.4 H PLATELET COUNT (BEAKER) (test code = 756) 73 K/CU MM 150-450 L MEAN PLATELET VOLUME (BEAKER) (test code = 754) 10.5 fL 9.4-12 .4 NUCLEATED RED BLOOD CELLS (BEAKER) (test code = 413) 0 /100 WBC 0 -0 [id number] 10:14:00* Test Item Value Reference Range Interpretation Comments Ethanol Lvl (test code = 5643-2) <10 <=10 mg/dL Lab Interpretation (test code = 80073-7) [facility]:14[facility]* Test Item Value Reference Range Interpretation Comments ETHANOL (BEAKER) (test code = 400) < mg/dL <=10 BASIC METABOLIC [id number] 05:20:00* Test Item Value Reference Range Interpretation Comments SODIUM (BEAKER) (test code = 381) 138 meq/L 136-145 POTASSIUM (BEAKER) (test code = 379) 5.1 meq/L 3.5-5.1 CHLORIDE (BEAKER) (test code = 382) 103 meq/L 98-107 CO2 (BEAKER) (test code = 355) 23 meq/L 22-29 BLOOD UREA NITROGEN (BEAKER) (test code = 354) 30 mg/dL 7-21 H CREATININE (BEAKER) (test code = 358) 7.41 mg/dL 0.57-1.25 H GLUCOSE RANDOM (BEAKER) (test code = 652) 89 mg/dL 70-105 CALCIUM (BEAKER) (test code = 697) 9.0 mg/dL 8.4-10.2 EGFR (BEAKER) (test code = 1092) 8 mL/min/1.73 sq m ESTIMATED GFR IS NOT ACCURATE CREATININE CLEARANCE IN PREDICTING GLOMERULAR FILTRATION RATE. ESTIMATED GFR IS NOT APPLICABLE FOR DIALYSIS PATIENTS. Specimen markedly ictericHEPATIC FUNCTION [id number] 05:19:00* Test Item Value Reference Range Interpretation Comments TOTAL PROTEIN (BEAKER) (test code = 770) 6.4 gm/dL 6.0-8.3 ALBUMIN (BEAKER) (test code = 1145) 3.2 g/dL 3.5-5.0 L BILIRUBIN TOTAL (BEAKER) (test code = 377) 10.1 mg/dL 0.2-1.2 H BILIRUBIN DIRECT (BEAKER) (test code = 706) 7.2 mg/dL 0.1-0.5 H ALKALINE PHOSPHATASE (BEAKER) (test code = 346) 166 U/L 40-150 H AST (SGOT) (BEAKER) (test code = 353) 52 U/L 5-34 H ALT (SGPT) (BEAKER) (test code = 347) 15 U/L 6-55 Specimen markedly ictericCBC W/PLT COUNT & AUTO [id number] 05:05:00 * Test Item Value Reference Range Interpretation Comments WHITE BLOOD CELL COUNT (BEAKER) (test code = 775) 4.9 K/ L 3.5- 10.5 RED BLOOD CELL COUNT (BEAKER) (test code = 761) 2.00 M/ L 4.63-6 .08 L HEMOGLOBIN (BEAKER) (test code = 410) 6.3 GM/DL 13.7-17.5 L HEMATOCRIT (BEAKER) (test code = 411) 19.6 % 40.1-51.0 L MEAN CORPUSCULAR VOLUME (BEAKER) (test code = 753) 98.0 fL 79. 0-92.2 H MEAN CORPUSCULAR HEMOGLOBIN (BEAKER) (test code = 751) 31.5 pg 25.7-32.2 MEAN CORPUSCULAR HEMOGLOBIN CONC (BEAKER) (test code = 752) 32.1 GM/DL 32.3-36.5 L RED CELL DISTRIBUTION WIDTH (BEAKER) (test code = 412) 16.7 % 11.6-14.4 H PLATELET COUNT (BEAKER) (test code = 756) 91 K/CU MM 150-450 L MEAN PLATELET VOLUME (BEAKER) (test code = 754) 10.7 fL 9.4-12 .4 NUCLEATED RED BLOOD CELLS (BEAKER) (test code = 413) 0 /100 WBC 0 -0 NEUTROPHILS RELATIVE PERCENT (BEAKER) (test code = 429) 46 % LYMPHOCYTES RELATIVE PERCENT (BEAKER) (test code = 430) 33 % MONOCYTES RELATIVE PERCENT (BEAKER) (test code = 431) 7 % EOSINOPHILS RELATIVE PERCENT (BEAKER) (test code = 432) 13 % BASOPHILS RELATIVE PERCENT (BEAKER) (test code = 437) 0 % NEUTROPHILS ABSOLUTE COUNT (BEAKER) (test code = 670) 2.26 K/ L 1.78-5.38 LYMPHOCYTES ABSOLUTE COUNT (BEAKER) (test code = 414) 1.61 K/ L 1.32-3.57 MONOCYTES ABSOLUTE COUNT (BEAKER) (test code = 415) 0.34 K/ L 0. 30-0.82 EOSINOPHILS ABSOLUTE COUNT (BEAKER) (test code = 416) 0.65 K/ L 0.04-0.54 H BASOPHILS ABSOLUTE COUNT (BEAKER) (test code = 417) 0.02 K/ L 0. 01-0.08 IMMATURE GRANULOCYTES-RELATIVE PERCENT (BEAKER) (test code = 2801) 0 % 0-1 BASIC METABOLIC [id number] 22:30:00* Test Item Value Reference Range Interpretation Comments SODIUM (BEAKER) (test code = 381) 138 meq/L 136-145 POTASSIUM (BEAKER) (test code = 379) 4.9 meq/L 3.5-5.1 CHLORIDE (BEAKER) (test code = 382) 103 meq/L 98-107 CO2 (BEAKER) (test code = 355) 23 meq/L 22-29 BLOOD UREA NITROGEN (BEAKER) (test code = 354) 28 mg/dL 7-21 H CREATININE (BEAKER) (test code = 358) 7.14 mg/dL 0.57-1.25 H GLUCOSE RANDOM (BEAKER) (test code = 652) 119 mg/dL 70-105 H CALCIUM (BEAKER) (test code = 697) 9.1 mg/dL 8.4-10.2 EGFR (BEAKER) (test code = 1092) 9 mL/min/1.73 sq m ESTIMATED GFR IS NOT ACCURATE CREATININE CLEARANCE IN PREDICTING GLOMERULAR FILTRATION RATE. ESTIMATED GFR IS NOT APPLICABLE FOR DIALYSIS PATIENTS. Specimen markedly ictericHEPATIC FUNCTION [id number] 22:26:00* Test Item Value Reference Range Interpretation Comments TOTAL PROTEIN (BEAKER) (test code = 770) 6.9 gm/dL 6.0-8.3 ALBUMIN (BEAKER) (test code = 1145) 3.4 g/dL 3.5-5.0 L BILIRUBIN TOTAL (BEAKER) (test code = 377) 10.8 mg/dL 0.2-1.2 H BILIRUBIN DIRECT (BEAKER) (test code = 706) 7.7 mg/dL 0.1-0.5 H ALKALINE PHOSPHATASE (BEAKER) (test code = 346) 180 U/L 40-150 H AST (SGOT) (BEAKER) (test code = 353) 55 U/L 5-34 H ALT (SGPT) (BEAKER) (test code = 347) 15 U/L 6-55 Specimen markedly ictericPT/[id number] 22:22:00* Test Item Value Reference Range Interpretation Comments PROTIME (BEAKER) (test code = 759) 19.0 seconds 11.9-14.2 H INR (BEAKER) (test code = 370) 1.7 <=5.9 PARTIAL THROMBOPLASTIN TIME (BEAKER) (test code = 760) 45.4 seconds 22.5-36.0 H Effective 07/24/2018: PT Reference Range ChangeNew: 11.9-14.2 Previous: 11.7-14. 7RECOMMENDED COUMADIN/WARFARIN INR THERAPY RANGESSTANDARD DOSE: 2.0-3.0 Include s: PROPHYLAXIS for venous thrombosis, systemic embolization; TREATMENT for venou s thrombosis and/or pulmonary embolus.HIGH RISK: Target INR is 2.5-3.5 for patie nts wiht mechanical heart valves.CBC W/PLT COUNT & AUTO [id number] 22:19:00* Test Item Value Reference Range Interpretation Comments WHITE BLOOD CELL COUNT (BEAKER) (test code = 775) 7.3 K/ L 3.5- 10.5 RED BLOOD CELL COUNT (BEAKER) (test code = 761) 1.78 M/ L 4.63-6 .08 L HEMOGLOBIN (BEAKER) (test code = 410) 6.0 GM/DL 13.7-17.5 LL HEMATOCRIT (BEAKER) (test code = 411) 17.2 % 40.1-51.0 L MEAN CORPUSCULAR VOLUME (BEAKER) (test code = 753) 96.6 fL 79. 0-92.2 H MEAN CORPUSCULAR HEMOGLOBIN (BEAKER) (test code = 751) 33.7 pg 25.7-32.2 H MEAN CORPUSCULAR HEMOGLOBIN CONC (BEAKER) (test code = 752) 34.9 GM/DL 32.3-36.5 RED CELL DISTRIBUTION WIDTH (BEAKER) (test code = 412) 15.8 % 11.6-14.4 H PLATELET COUNT (BEAKER) (test code = 756) 107 K/CU MM 150-450 L MEAN PLATELET VOLUME (BEAKER) (test code = 754) 10.9 fL 9.4-12 .4 NUCLEATED RED BLOOD CELLS (BEAKER) (test code = 413) 0 /100 WBC 0 -0 NEUTROPHILS RELATIVE PERCENT (BEAKER) (test code = 429) 52 % LYMPHOCYTES RELATIVE PERCENT (BEAKER) (test code = 430) 26 % MONOCYTES RELATIVE PERCENT (BEAKER) (test code = 431) 9 % EOSINOPHILS RELATIVE PERCENT (BEAKER) (test code = 432) 13 % BASOPHILS RELATIVE PERCENT (BEAKER) (test code = 437) 0 % NEUTROPHILS ABSOLUTE COUNT (BEAKER) (test code = 670) 3.80 K/ L 1.78-5.38 LYMPHOCYTES ABSOLUTE COUNT (BEAKER) (test code = 414) 1.87 K/ L 1.32-3.57 MONOCYTES ABSOLUTE COUNT (BEAKER) (test code = 415) 0.65 K/ L 0. 30-0.82 EOSINOPHILS ABSOLUTE COUNT (BEAKER) (test code = 416) 0.93 K/ L 0.04-0.54 H BASOPHILS ABSOLUTE COUNT (BEAKER) (test code = 417) 0.03 K/ L 0. 01-0.08 IMMATURE GRANULOCYTES-RELATIVE PERCENT (BEAKER) (test code = 2801) 1 % 0-1 BLOOD [id number] 11:00:00* Test Item Value Reference Range Interpretation Comments CULTURE (BEAKER) (test code = 1095) No growth in 5 days HEPATIC FUNCTION [id number] 09:42:00* Test Item Value Reference Range Interpretation Comments TOTAL PROTEIN (BEAKER) (test code = 770) 5.8 gm/dL 6.0-8.3 L ALBUMIN (BEAKER) (test code = 1145) 3.2 g/dL 3.5-5.0 L BILIRUBIN TOTAL (BEAKER) (test code = 377) 12.9 mg/dL 0.2-1.2 H BILIRUBIN DIRECT (BEAKER) (test code = 706) 8.9 mg/dL 0.1-0.5 H ALKALINE PHOSPHATASE (BEAKER) (test code = 346) 145 U/L 40-150 AST (SGOT) (BEAKER) (test code = 353) 73 U/L 5-34 H ALT (SGPT) (BEAKER) (test code = 347) 17 U/L 6-55 Specimen markedly ictericBLOOD [id number] 08:00:00* Test Item Value Reference Range Interpretation Comments CULTURE (BEAKER) (test code = 1095) No growth in 5 days BLOOD [id number] 08:00:00* Test Item Value Reference Range Interpretation Comments CULTURE (BEAKER) (test code = 1095) No growth in 5 days BLOOD [id number] 08:00:00* Test Item Value Reference Range Interpretation Comments CULTURE (BEAKER) (test code = 1095) No growth in 5 days [id number] 05:03:00* Test Item Value Reference Range Interpretation Comments HAPTOGLOBIN (BEAKER) (test code = 366) < mg/dL 14-258 L BASIC METABOLIC [id number] 05:02:00* Test Item Value Reference Range Interpretation Comments SODIUM (BEAKER) (test code = 381) 140 meq/L 136-145 POTASSIUM (BEAKER) (test code = 379) 4.3 meq/L 3.5-5.1 CHLORIDE (BEAKER) (test code = 382) 104 meq/L 98-107 CO2 (BEAKER) (test code = 355) 29 meq/L 22-29 BLOOD UREA NITROGEN (BEAKER) (test code = 354) 16 mg/dL 7-21 CREATININE (BEAKER) (test code = 358) 4.38 mg/dL 0.57-1.25 H GLUCOSE RANDOM (BEAKER) (test code = 652) 85 mg/dL 70-105 CALCIUM (BEAKER) (test code = 697) 8.9 mg/dL 8.4-10.2 EGFR (BEAKER) (test code = 1092) 15 mL/min/1.73 sq m ESTIMATED GFR IS NOT ACCURATE CREATININE CLEARANCE IN PREDICTING GLOMERULAR FILTRATION RATE. ESTIMATED GFR IS NOT APPLICABLE FOR DIALYSIS PATIENTS. Specimen markedly [id number] 04:44:00* Test Item Value Reference Range Interpretation Comments PHOSPHORUS (BEAKER) (test code = 604) 4.4 mg/dL 2.3-4.7 [id number] 04:44:00* Test Item Value Reference Range Interpretation Comments MAGNESIUM (BEAKER) (test code = 627) 2.1 mg/dL 1.6-2.6 CBC W/PLT COUNT & AUTO [id number] 04:40:00* Test Item Value Reference Range Interpretation Comments WHITE BLOOD CELL COUNT (BEAKER) (test code = 775) 6.8 K/ L 3.5- 10.5 RED BLOOD CELL COUNT (BEAKER) (test code = 761) 2.32 M/ L 4.63-6 .08 L HEMOGLOBIN (BEAKER) (test code = 410) 7.4 GM/DL 13.7-17.5 L HEMATOCRIT (BEAKER) (test code = 411) 22.5 % 40.1-51.0 L MEAN CORPUSCULAR VOLUME (BEAKER) (test code = 753) 97.0 fL 79. 0-92.2 H MEAN CORPUSCULAR HEMOGLOBIN (BEAKER) (test code = 751) 31.9 pg 25.7-32.2 MEAN CORPUSCULAR HEMOGLOBIN CONC (BEAKER) (test code = 752) 32.9 GM/DL 32.3-36.5 RED CELL DISTRIBUTION WIDTH (BEAKER) (test code = 412) 18.4 % 11.6-14.4 H PLATELET COUNT (BEAKER) (test code = 756) 65 K/CU MM 150-450 L MEAN PLATELET VOLUME (BEAKER) (test code = 754) 11.6 fL 9.4-12 .4 NUCLEATED RED BLOOD CELLS (BEAKER) (test code = 413) 0 /100 WBC 0 -0 NEUTROPHILS RELATIVE PERCENT (BEAKER) (test code = 429) 48 % LYMPHOCYTES RELATIVE PERCENT (BEAKER) (test code = 430) 24 % MONOCYTES RELATIVE PERCENT (BEAKER) (test code = 431) 14 % EOSINOPHILS RELATIVE PERCENT (BEAKER) (test code = 432) 14 % BASOPHILS RELATIVE PERCENT (BEAKER) (test code = 437) 1 % NEUTROPHILS ABSOLUTE COUNT (BEAKER) (test code = 670) 3.24 K/ L 1.78-5.38 LYMPHOCYTES ABSOLUTE COUNT (BEAKER) (test code = 414) 1.63 K/ L 1.32-3.57 MONOCYTES ABSOLUTE COUNT (BEAKER) (test code = 415) 0.93 K/ L 0. 30-0.82 H EOSINOPHILS ABSOLUTE COUNT (BEAKER) (test code = 416) 0.94 K/ L 0.04-0.54 H BASOPHILS ABSOLUTE COUNT (BEAKER) (test code = 417) 0.04 K/ L 0. 01-0.08 IMMATURE GRANULOCYTES-RELATIVE PERCENT (BEAKER) (test code = 2801) 0 % 0-1 Vancomycin level, [id number] 04:39:00* Test Item Value Reference Range Interpretation Comments Vancomycin Rm (test code = 75895-6) 16.4 ug/mL PHILLIP (test code = PHILLIP) Reference Range: No Normals [facility] [id number] 04:39:00* Test Item Value Reference Range Interpretation Comments VANCOMYCIN RANDOM ([facility]) (test code = 523) 16.4 ug/mL Reference Range: No NormalsLACTATE DEHYDROGENASE ([facility])2018-12-25 13:28:00* Test Item Value Reference Range Interpretation Comments LACTATE DEHYDROGENASE ([facility]) (test code = 635) 242 U/L 125-2 20 H Venous doppler legs [id number] 12:50:27Ejection FractionSLEH ECHO HEARTLAB MKCKESSON CPACSRight Impression1. There is no deep venous obstruction in the common femoral, profundafemoral, femoral, popliteal, posterior tibial or peroneal veins.2. There is no superficial venous obstruction in the great saphenous vein.Left Impression1. There is no deep venous obstruction in the common femoral, profundafemoral, femoral, popliteal, posterior tibial or peroneal veins.2. There is no superficial venous obstruction in the great saphenous vein. Conclusions Summary Venous duplex imaging and compression of the bilateral lower extremities were performed. The veins were adequately vis ualized. The bilateral venous systems were patent and compressible with no evide nce of thrombus. The venous Doppler waveforms were pulsatile indicating possible elevated right heart filling pressure . Signature Velocities are measured in cm/s ; Diameters a re measured in cm Interface, External Ris In - 12/25/2018 12:50 PM [facility] LAB - L ower Extremities DVT Study Demographics Patient Name INDRA GALVAN Laney gonzáles of Study 12/24/2018 YAN CORDERO 8135 Age 38 Visit Number [id number] Gato nder Male Accession Number [id number] Date of 1980 Referring Audie Hoyt MD Room Number 7604 [facility] [employer] Cb Maki S Interpreting Karen Blackwell, Physician ProcedureType of Stud y: Veins: Lower Extremities DVT Study, VENOUS DOPPLER LEG, BILATERAL. Indicatio ns for Study:Leg swelling.Patient Status:Routine.Study Location:Portable.Technic al Quality:Adequate visualization.Risk FactorsHistory of Disease+ ----+ + +!Diagnosis !Date !Comments !+ +--- -------+ +!History/Risk ! 019!ARDS, HTN, Obesity !!Factors: ! ! !+ + +---- +!History/Risk !12/24/2018!History of fall 5 days ago, ESRD, LIver !!Factors: ! !failure !+ + + +ImpressionsRight Impression1. There is no deep venou s obstruction in the common femoral, profundafemoral, femoral, popliteal, riprap placing supervisor ior tibial or peroneal veins.2. There is no superficial venous obstruction in th e great saphenous vein.Left Impression1. There is no deep venous obstruction in the common femoral, profundafemoral, femoral, popliteal, posterior tibial or per gonzalez veins.2. There is no superficial venous obstruction in the great saphenous vein. Conclusions Summary Venous duplex imaging and compression of the bilate ral lower extremities were performed. The veins were adequately visualized. The bilateral venous systems were patent and compressible with no evidence of thromb us. The venous Doppler waveforms were pulsatile indicating possible elevated rig ht heart filling pressure . Signature Velocities are measured in cm/s ; Diameters are measured i n [facility] W/PLT COUNT & AUTO [id number] 04:43:00* Test Item Value Reference Range Interpretation Comments WHITE BLOOD CELL COUNT (BEAKER) (test code = 775) 6.9 K/ L 3.5- 10.5 RED BLOOD CELL COUNT (BEAKER) (test code = 761) 2.14 M/ L 4.63-6 .08 L HEMOGLOBIN (BEAKER) (test code = 410) 6.9 GM/DL 13.7-17.5 L HEMATOCRIT (BEAKER) (test code = 411) 20.8 % 40.1-51.0 L MEAN CORPUSCULAR VOLUME (BEAKER) (test code = 753) 97.2 fL 79. 0-92.2 H MEAN CORPUSCULAR HEMOGLOBIN (BEAKER) (test code = 751) 32.2 pg 25.7-32.2 MEAN CORPUSCULAR HEMOGLOBIN CONC (BEAKER) (test code = 752) 33.2 GM/DL 32.3-36.5 RED CELL DISTRIBUTION WIDTH (BEAKER) (test code = 412) 18.2 % 11.6-14.4 H PLATELET COUNT (BEAKER) (test code = 756) 80 K/CU MM 150-450 L MEAN PLATELET VOLUME (BEAKER) (test code = 754) 11.5 fL 9.4-12 .4 NUCLEATED RED BLOOD CELLS (BEAKER) (test code = 413) 0 /100 WBC 0 -0 NEUTROPHILS RELATIVE PERCENT (BEAKER) (test code = 429) 49 % LYMPHOCYTES RELATIVE PERCENT (BEAKER) (test code = 430) 21 % MONOCYTES RELATIVE PERCENT (BEAKER) (test code = 431) 15 % EOSINOPHILS RELATIVE PERCENT (BEAKER) (test code = 432) 13 % BASOPHILS RELATIVE PERCENT (BEAKER) (test code = 437) 0 % NEUTROPHILS ABSOLUTE COUNT (BEAKER) (test code = 670) 3.38 K/ L 1.78-5.38 LYMPHOCYTES ABSOLUTE COUNT (BEAKER) (test code = 414) 1.46 K/ L 1.32-3.57 MONOCYTES ABSOLUTE COUNT (BEAKER) (test code = 415) 1.05 K/ L 0. 30-0.82 H EOSINOPHILS ABSOLUTE COUNT (BEAKER) (test code = 416) 0.92 K/ L 0.04-0.54 H BASOPHILS ABSOLUTE COUNT (BEAKER) (test code = 417) 0.02 K/ L 0. 01-0.08 IMMATURE GRANULOCYTES-RELATIVE PERCENT (BEAKER) (test code = 2801) 0 % 0-1 [id number] 04:26:00* Test Item Value Reference Range Interpretation Comments PHOSPHORUS (BEAKER) (test code = 604) 4.7 mg/dL 2.3-4.7 [id number] 04:26:00* Test Item Value Reference Range Interpretation Comments MAGNESIUM (BEAKER) (test code = 627) 2.3 mg/dL 1.6-2.6 HEPATIC FUNCTION [id number] 04:26:00* Test Item Value Reference Range Interpretation Comments TOTAL PROTEIN (BEAKER) (test code = 770) 5.8 gm/dL 6.0-8.3 L ALBUMIN (BEAKER) (test code = 1145) 3.1 g/dL 3.5-5.0 L BILIRUBIN TOTAL (BEAKER) (test code = 377) 13.8 mg/dL 0.2-1.2 H BILIRUBIN DIRECT (BEAKER) (test code = 706) 9.7 mg/dL 0.1-0.5 H ALKALINE PHOSPHATASE (BEAKER) (test code = 346) 141 U/L 40-150 AST (SGOT) (BEAKER) (test code = 353) 58 U/L 5-34 H ALT (SGPT) (BEAKER) (test code = 347) 12 U/L 6-55 Specimen markedly ictericBASIC METABOLIC [id number] 04:26:00* Test Item Value Reference Range Interpretation Comments SODIUM (BEAKER) (test code = 381) 137 meq/L 136-145 POTASSIUM (BEAKER) (test code = 379) 4.2 meq/L 3.5-5.1 CHLORIDE (BEAKER) (test code = 382) 101 meq/L 98-107 CO2 (BEAKER) (test code = 355) 29 meq/L 22-29 BLOOD UREA NITROGEN (BEAKER) (test code = 354) 26 mg/dL 7-21 H CREATININE (BEAKER) (test code = 358) 6.46 mg/dL 0.57-1.25 H GLUCOSE RANDOM (BEAKER) (test code = 652) 96 mg/dL 70-105 CALCIUM (BEAKER) (test code = 697) 8.9 mg/dL 8.4-10.2 EGFR (BEAKER) (test code = 1092) 10 mL/min/1.73 sq m ESTIMATED GFR IS NOT ACCURATE CREATININE CLEARANCE IN PREDICTING GLOMERULAR FILTRATION RATE. ESTIMATED GFR IS NOT APPLICABLE FOR DIALYSIS PATIENTS. Specimen markedly ictericPROTHROMBIN TIME/[id number] 04:22:00* Test Item Value Reference Range Interpretation Comments PROTIME (BEAKER) (test code = 759) 18.4 seconds 11.9-14.2 H INR (BEAKER) (test code = 370) 1.6 <=5.9 Effective 07/24/2018: PT Reference Range ChangeNew: 11.9-14.2 Previous: 11.7-14. 7RECOMMENDED COUMADIN/WARFARIN INR THERAPY RANGESSTANDARD DOSE: 2.0-3.0 Include s: PROPHYLAXIS for venous thrombosis, systemic embolization; TREATMENT for venou s thrombosis and/or pulmonary embolus.HIGH RISK: Target INR is 2.5-3.5 for patie nts wiht mechanical heart valves.BASIC METABOLIC [id number] 04:45:00* Test Item Value Reference Range Interpretation Comments SODIUM (BEAKER) (test code = 381) 136 meq/L 136-145 POTASSIUM (BEAKER) (test code = 379) 4.1 meq/L 3.5-5.1 CHLORIDE (BEAKER) (test code = 382) 101 meq/L 98-107 CO2 (BEAKER) (test code = 355) 28 meq/L 22-29 BLOOD UREA NITROGEN (BEAKER) (test code = 354) 13 mg/dL 7-21 CREATININE (BEAKER) (test code = 358) 4.28 mg/dL 0.57-1.25 H GLUCOSE RANDOM (BEAKER) (test code = 652) 106 mg/dL 70-105 H CALCIUM (BEAKER) (test code = 697) 9.0 mg/dL 8.4-10.2 EGFR (BEAKER) (test code = 1092) 15 mL/min/1.73 sq m ESTIMATED GFR IS NOT ACCURATE CREATININE CLEARANCE IN PREDICTING GLOMERULAR FILTRATION RATE. ESTIMATED GFR IS NOT APPLICABLE FOR DIALYSIS PATIENTS. Specimen markedly [id number] 04:39:00* Test Item Value Reference Range Interpretation Comments PHOSPHORUS (BEAKER) (test code = 604) 2.4 mg/dL 2.3-4.7 [id number] 04:39:00* Test Item Value Reference Range Interpretation Comments MAGNESIUM (BEAKER) (test code = 627) 2.0 mg/dL 1.6-2.6 CBC W/PLT COUNT & AUTO [id number] 03:32:00* Test Item Value Reference Range Interpretation Comments WHITE BLOOD CELL COUNT (BEAKER) (test code = 775) 8.4 K/ L 3.5- 10.5 RED BLOOD CELL COUNT (BEAKER) (test code = 761) 2.25 M/ L 4.63-6 .08 L HEMOGLOBIN (BEAKER) (test code = 410) 7.2 GM/DL 13.7-17.5 L HEMATOCRIT (BEAKER) (test code = 411) 21.3 % 40.1-51.0 L MEAN CORPUSCULAR VOLUME (BEAKER) (test code = 753) 94.7 fL 79. 0-92.2 H MEAN CORPUSCULAR HEMOGLOBIN (BEAKER) (test code = 751) 32.0 pg 25.7-32.2 MEAN CORPUSCULAR HEMOGLOBIN CONC (BEAKER) (test code = 752) 33.8 GM/DL 32.3-36.5 RED CELL DISTRIBUTION WIDTH (BEAKER) (test code = 412) 18.5 % 11.6-14.4 H PLATELET COUNT (BEAKER) (test code = 756) 65 K/CU MM 150-450 L MEAN PLATELET VOLUME (BEAKER) (test code = 754) 10.9 fL 9.4-12 .4 NUCLEATED RED BLOOD CELLS (BEAKER) (test code = 413) 0 /100 WBC 0 -0 NEUTROPHILS RELATIVE PERCENT (BEAKER) (test code = 429) 66 % LYMPHOCYTES RELATIVE PERCENT (BEAKER) (test code = 430) 9 % MONOCYTES RELATIVE PERCENT (BEAKER) (test code = 431) 12 % EOSINOPHILS RELATIVE PERCENT (BEAKER) (test code = 432) 12 % BASOPHILS RELATIVE PERCENT (BEAKER) (test code = 437) 0 % NEUTROPHILS ABSOLUTE COUNT (BEAKER) (test code = 670) 5.53 K/ L 1.78-5.38 H LYMPHOCYTES ABSOLUTE COUNT (BEAKER) (test code = 414) 0.77 K/ L 1.32-3.57 L MONOCYTES ABSOLUTE COUNT (BEAKER) (test code = 415) 1.00 K/ L 0. 30-0.82 H EOSINOPHILS ABSOLUTE COUNT (BEAKER) (test code = 416) 1.01 K/ L 0.04-0.54 H BASOPHILS ABSOLUTE COUNT (BEAKER) (test code = 417) 0.02 K/ L 0. 01-0.08 IMMATURE GRANULOCYTES-RELATIVE PERCENT (BEAKER) (test code = 2801) 0 % 0-1 HEMODIALYSIS [id number] 23:25:30SawaFlakita camacho RN 12/24/2018 12:23 AMVerified informed consent signed for HD. Patient completed 4 hours of HD via right SC CVC, with net fluid removal of 2 liters. Asymptomatic hypotension throughout treatment. 2 doses of Mannitol 12.5 G administered for BP support. Report given to Nahid Cheng RN. Lab Results Component Value Date WBC 7.3 12/23/2018 HGB 7.0 (L) 12/23/2018 HCT 20.7 (L) 12/23/2018 MCV 96.7 (H) 12/23/2018 PLT 71 (L) 12/23/2018 Lab Results Component Value Date GLUCOSE 103 12/23/2018 CALCIUM 9.4 12/23/2018 NA 139 12/23/2018 K 4.6 12/23/2018 CO2 24 12/23/2018 CL 105 12/23/2018 BUN 23 (H) 12/23/2018 CREATININE 6.77 (H) 12/23/2018 Results for INDRA GALVAN JR. ( ) as of 12/23/2018 23:27 Ref. Range 12/23/2018 04:01 Hepatitis B Surface Ag Latest Ref Range: Nonreactive Nonreactive [facility] (HEMOGRAM ONLY)2018-12-23 20:21:00* Test Item Value Reference Range Interpretation Comments WHITE BLOOD CELL COUNT (BEAKER) (test code = 775) 7.3 K/ L 3.5- 10.5 RED BLOOD CELL COUNT (BEAKER) (test code = 761) 2.14 M/ L 4.63-6 .08 L HEMOGLOBIN (BEAKER) (test code = 410) 7.0 GM/DL 13.7-17.5 L HEMATOCRIT (BEAKER) (test code = 411) 20.7 % 40.1-51.0 L MEAN CORPUSCULAR VOLUME (BEAKER) (test code = 753) 96.7 fL 79. 0-92.2 H MEAN CORPUSCULAR HEMOGLOBIN (BEAKER) (test code = 751) 32.7 pg 25.7-32.2 H MEAN CORPUSCULAR HEMOGLOBIN CONC (BEAKER) (test code = 752) 33.8 GM/DL 32.3-36.5 RED CELL DISTRIBUTION WIDTH (BEAKER) (test code = 412) 18.6 % 11.6-14.4 H PLATELET COUNT (BEAKER) (test code = 756) 71 K/CU MM 150-450 L MEAN PLATELET VOLUME (BEAKER) (test code = 754) 10.8 fL 9.4-12 .4 NUCLEATED RED BLOOD CELLS (BEAKER) (test code = 413) 0 /100 WBC 0 -0 HEPATITIS B SURFACE [id number] 05:28:00* Test Item Value Reference Range Interpretation Comments HEPATITIS B SURFACE ANTIGEN (2) (BEAKER) (test code = 2585) Nonreactive Nonreactive BASIC METABOLIC [id number] 05:28:00* Test Item Value Reference Range Interpretation Comments SODIUM (BEAKER) (test code = 381) 139 meq/L 136-145 POTASSIUM (BEAKER) (test code = 379) 4.6 meq/L 3.5-5.1 CHLORIDE (BEAKER) (test code = 382) 105 meq/L 98-107 CO2 (BEAKER) (test code = 355) 24 meq/L 22-29 BLOOD UREA NITROGEN (BEAKER) (test code = 354) 23 mg/dL 7-21 H CREATININE (BEAKER) (test code = 358) 6.77 mg/dL 0.57-1.25 H GLUCOSE RANDOM (BEAKER) (test code = 652) 103 mg/dL 70-105 CALCIUM (BEAKER) (test code = 697) 9.4 mg/dL 8.4-10.2 EGFR (BEAKER) (test code = 1092) 9 mL/min/1.73 sq m ESTIMATED GFR IS NOT ACCURATE CREATININE CLEARANCE IN PREDICTING GLOMERULAR FILTRATION RATE. ESTIMATED GFR IS NOT APPLICABLE FOR DIALYSIS PATIENTS. Specimen markedly [id number] 05:23:00* Test Item Value Reference Range Interpretation Comments PHOSPHORUS (BEAKER) (test code = 604) 3.4 mg/dL 2.3-4.7 [id number] 05:23:00* Test Item Value Reference Range Interpretation Comments MAGNESIUM (BEAKER) (test code = 627) 2.1 mg/dL 1.6-2.6 VANCOMYCIN LEVEL, [id number] 05:15:00* Test Item Value Reference Range Interpretation Comments VANCOMYCIN RANDOM (BEAKER) (test code = 523) 36.4 ug/mL Reference Range: No NormalsCBC W/PLT COUNT & AUTO [id number] 04:21:00* Test Item Value Reference Range Interpretation Comments WHITE BLOOD CELL COUNT (BEAKER) (test code = 775) 8.1 K/ L 3.5- 10.5 RED BLOOD CELL COUNT (BEAKER) (test code = 761) 2.24 M/ L 4.63-6 .08 L HEMOGLOBIN (BEAKER) (test code = 410) 7.2 GM/DL 13.7-17.5 L HEMATOCRIT (BEAKER) (test code = 411) 22.0 % 40.1-51.0 L MEAN CORPUSCULAR VOLUME (BEAKER) (test code = 753) 98.2 fL 79. 0-92.2 H MEAN CORPUSCULAR HEMOGLOBIN (BEAKER) (test code = 751) 32.1 pg 25.7-32.2 MEAN CORPUSCULAR HEMOGLOBIN CONC (BEAKER) (test code = 752) 32.7 GM/DL 32.3-36.5 RED CELL DISTRIBUTION WIDTH (BEAKER) (test code = 412) 19.7 % 11.6-14.4 H PLATELET COUNT (BEAKER) (test code = 756) 83 K/CU MM 150-450 L MEAN PLATELET VOLUME (BEAKER) (test code = 754) 11.3 fL 9.4-12 .4 NUCLEATED RED BLOOD CELLS (BEAKER) (test code = 413) 0 /100 WBC 0 -0 NEUTROPHILS RELATIVE PERCENT (BEAKER) (test code = 429) 55 % LYMPHOCYTES RELATIVE PERCENT (BEAKER) (test code = 430) 15 % MONOCYTES RELATIVE PERCENT (BEAKER) (test code = 431) 12 % EOSINOPHILS RELATIVE PERCENT (BEAKER) (test code = 432) 18 % BASOPHILS RELATIVE PERCENT (BEAKER) (test code = 437) 0 % NEUTROPHILS ABSOLUTE COUNT (BEAKER) (test code = 670) 4.46 K/ L 1.78-5.38 LYMPHOCYTES ABSOLUTE COUNT (BEAKER) (test code = 414) 1.18 K/ L 1.32-3.57 L MONOCYTES ABSOLUTE COUNT (BEAKER) (test code = 415) 0.94 K/ L 0. 30-0.82 H EOSINOPHILS ABSOLUTE COUNT (BEAKER) (test code = 416) 1.42 K/ L 0.04-0.54 H BASOPHILS ABSOLUTE COUNT (BEAKER) (test code = 417) 0.03 K/ L 0. 01-0.08 IMMATURE GRANULOCYTES-RELATIVE PERCENT (BEAKER) (test code = 2801) 0 % 0-1 CT, EXTREMITY, LOWER WITHOUT CONTRAST, [id number] 03:00:00FINAL REPORT CT right lower extremity. CLINICAL HISTORY: [...] of an iterative reconstruction technique. COMPARISON: None FINDINGS:Sclerosis in the lateral femoral condyle favored to represent a bone island. Incidentally noted fabella. No acute fracture. Trace knee joint effusion. Soft tissue irregularity anterior to the tibial tuberosity favored to represent laceration/contusion. Vascular calcifications. IMPRESSION: No acute fracture. Trace knee joint effusion. Soft tissue irregularity anterior to the tibial tuberosity favored t o represent laceration/contusion. Signed: Richie Griffin Verified Date/Time: 12/23/2018 03:00:15 lower extremity without IV contrast right 2018-12-23 03:00:00Interface, External Ris In - 12/23/2018 3:[address] right lower extremity. CLINICAL HISTORY: [...] of an iterative reconstruction technique. COMPARISON: None FINDINGS:Sclerosis in the lateral femoral condyle favored to represent a bone island. Incidentally noted fabella. No acute fracture. Trace knee joint effusion. Soft tissue irregularity anterior to the tibial tuberosity favored to represent laceration/contusion. Vascular calcifications. IMPRESSION: No acute fracture. Trace knee joint effusion. Soft tissue irregularity anterior to the tibial tuberosity favored t o represent laceration/contusion. Signed: Richie Griffin Verified Date/Time: 12/23/2018 03:00:15 [facility] [id number] 17:08:00* Test Item Value Reference Range Interpretation Comments Vancomycin Tr (test code = 4092-3) 40.3 ug/mL 10-20 HH Lab Interpretation (test code = 75262-9) Abnormal [facility], [id number] 17:08:00* Test Item Value Reference Range Interpretation Comments VANCOMYCIN TROUGH (BEAKER) (test code = 522) 40.3 ug/mL 10.0-20.0 HH CBC (HEMOGRAM ONLY)2018-12-22 16:33:00* Test Item Value Reference Range Interpretation Comments WHITE BLOOD CELL COUNT (BEAKER) (test code = 775) 9.2 K/ L 3.5- 10.5 RED BLOOD CELL COUNT (BEAKER) (test code = 761) 2.59 M/ L 4.63-6 .08 L HEMOGLOBIN (BEAKER) (test code = 410) 8.2 GM/DL 13.7-17.5 L HEMATOCRIT (BEAKER) (test code = 411) 24.9 % 40.1-51.0 L MEAN CORPUSCULAR VOLUME (BEAKER) (test code = 753) 96.1 fL 79. 0-92.2 H MEAN CORPUSCULAR HEMOGLOBIN (BEAKER) (test code = 751) 31.7 pg 25.7-32.2 MEAN CORPUSCULAR HEMOGLOBIN CONC (BEAKER) (test code = 752) 32.9 GM/DL 32.3-36.5 RED CELL DISTRIBUTION WIDTH (BEAKER) (test code = 412) 19.7 % 11.6-14.4 H PLATELET COUNT (BEAKER) (test code = 756) 96 K/CU MM 150-450 L MEAN PLATELET VOLUME (BEAKER) (test code = 754) 11.4 fL 9.4-12 .4 NUCLEATED RED BLOOD CELLS (BEAKER) (test code = 413) 0 /100 WBC 0 -0 RAD, CHEST, 1 VIEW, NON [id number] 08:35:00Reason for exam:->eval pulmonary congestionShould this be performed at the bedside?->YesFINAL REPORT CLINICAL HISTORY: eval pulmonary congestion TECHNIQUE: 1 view of the chest. COMPARISON: 12/21/2018 IMPRESSION: The right central line is unchanged. There are low lung volumes with crowding of the lung markings. There is increased bibasilar atelectasis and possibly increased mild pulmonary vascular congestion. Subpulmonic pleural effusions cannot be excluded. The cardiomediastinal silhouette is magnified by technique. Signed: Omero Moura Verified Date/Time: 12/22/2018 08:35:05 Reading Location: [facility] C013V Neuro Reading Room Electronically signed by: OMERO MOURA M.D. on 2018 08:35 AM BASIC METABOLIC [id number] 05:18:00* Test Item Value Reference Range Interpretation Comments SODIUM (BEAKER) (test code = 381) 142 meq/L 136-145 POTASSIUM (BEAKER) (test code = 379) 4.6 meq/L 3.5-5.1 Specimen slightly hemolyzed CHLORIDE (BEAKER) (test code = 382) 104 meq/L 98-107 CO2 (BEAKER) (test code = 355) 29 meq/L 22-29 BLOOD UREA NITROGEN (BEAKER) (test code = 354) 15 mg/dL 7-21 CREATININE (BEAKER) (test code = 358) 5.02 mg/dL 0.57-1.25 H Specimen slightly hemolyzed GLUCOSE RANDOM (BEAKER) (test code = 652) 96 mg/dL 70-105 CALCIUM (BEAKER) (test code = 697) 9.4 mg/dL 8.4-10.2 EGFR (BEAKER) (test code = 1092) 13 mL/min/1.73 sq m ESTIMATED GFR IS NOT ACCURATE CREATININE CLEARANCE IN PREDICTING GLOMERULAR FILTRATION RATE. ESTIMATED GFR IS NOT APPLICABLE FOR DIALYSIS PATIENTS. Specimen markedly [id number] 05:08:00* Test Item Value Reference Range Interpretation Comments MAGNESIUM (BEAKER) (test code = 627) 2.2 mg/dL 1.6-2.6 Specimen slightly hemolyzed [id number] 05:08:00* Test Item Value Reference Range Interpretation Comments PHOSPHORUS (BEAKER) (test code = 604) 3.9 mg/dL 2.3-4.7 Specimen slightly hemolyzed LACTIC ACID, [id number] 04:40:00* Test Item Value Reference Range Interpretation Comments LACTATE BLOOD VENOUS (2) (BEAKER) (test code = 2872) 1.7 mmol/L 0 .5-2.2 Specimen slightly hemolyzed Specimen markedly [id number] 04:18:00* Test Item Value Reference Range Interpretation Comments Fibrinogen (test code = 3255-7) 195 mg/dl 225-434 L Lab Interpretation (test code = 57959-8) [facility]normal [id number] 04:18:00* Test Item Value Reference Range Interpretation Comments FIBRINOGEN LEVEL (BEAKER) (test code = 658) 195 mg/dl 225-434 L CBC W/PLT COUNT & AUTO [id number] 04:10:00* Test Item Value Reference Range Interpretation Comments WHITE BLOOD CELL COUNT (BEAKER) (test code = 775) 6.6 K/ L 3.5- 10.5 RED BLOOD CELL COUNT (BEAKER) (test code = 761) 1.94 M/ L 4.63-6 .08 L HEMOGLOBIN (BEAKER) (test code = 410) 6.4 GM/DL 13.7-17.5 L HEMATOCRIT (BEAKER) (test code = 411) 19.4 % 40.1-51.0 L MEAN CORPUSCULAR VOLUME (BEAKER) (test code = 753) 100.0 fL 79. 0-92.2 H MEAN CORPUSCULAR HEMOGLOBIN (BEAKER) (test code = 751) 33.0 pg 25.7-32.2 H MEAN CORPUSCULAR HEMOGLOBIN CONC (BEAKER) (test code = 752) 33.0 GM/DL 32.3-36.5 RED CELL DISTRIBUTION WIDTH (BEAKER) (test code = 412) 19.2 % 11.6-14.4 H PLATELET COUNT (BEAKER) (test code = 756) 82 K/CU MM 150-450 L MEAN PLATELET VOLUME (BEAKER) (test code = 754) 12.4 fL 9.4-12 .4 NUCLEATED RED BLOOD CELLS (BEAKER) (test code = 413) 0 /100 WBC 0 -0 NEUTROPHILS RELATIVE PERCENT (BEAKER) (test code = 429) 64 % LYMPHOCYTES RELATIVE PERCENT (BEAKER) (test code = 430) 13 % MONOCYTES RELATIVE PERCENT (BEAKER) (test code = 431) 10 % EOSINOPHILS RELATIVE PERCENT (BEAKER) (test code = 432) 12 % BASOPHILS RELATIVE PERCENT (BEAKER) (test code = 437) 1 % NEUTROPHILS ABSOLUTE COUNT (BEAKER) (test code = 670) 4.24 K/ L 1.78-5.38 LYMPHOCYTES ABSOLUTE COUNT (BEAKER) (test code = 414) 0.87 K/ L 1.32-3.57 L MONOCYTES ABSOLUTE COUNT (BEAKER) (test code = 415) 0.68 K/ L 0. 30-0.82 EOSINOPHILS ABSOLUTE COUNT (BEAKER) (test code = 416) 0.78 K/ L 0.04-0.54 H BASOPHILS ABSOLUTE COUNT (BEAKER) (test code = 417) 0.03 K/ L 0. 01-0.08 IMMATURE GRANULOCYTES-RELATIVE PERCENT (BEAKER) (test code = 2801) 1 % 0-1 HEMOGLOBIN AND [id number] 08:38:00* Test Item Value Reference Range Interpretation Comments HEMOGLOBIN (BEAKER) (test code = 410) 7.0 GM/DL 13.7-17.5 L HEMATOCRIT (BEAKER) (test code = 411) 20.7 % 40.1-51.0 L POC-Lactic Acid, [id number] 04:05:00* Test Item Value Reference Range Interpretation Comments POC-Lactic Acid, Venous (test code = 2805) 1.6 mmol/L 0.9-1.7 TESTED AT [facility] [address] [facility] [address] Lab Interpretation (test code = 25173-0) Normal [facility], [id number] 04:05:00* Test Item Value Reference Range Interpretation Comments POC-LACTIC ACID, VENOUS (BEAKER) (test code = 2805) 1.6 mmol/L 0. 9-1.7 TESTED AT [facility] [address] [facility] [address] [id number] 03:40:00* Test Item Value Reference Range Interpretation Comments PROCALCITONIN (BEAKER) (test code = 3036) 1.26 ng/mL <0.05 H SEPSIS RISK (ng/mL)Low: 0.05-0.50Intermediate: 0.51-2.00High: > =[id number] 03:37:00* Test Item Value Reference Range Interpretation Comments Ammonia (test code = 12815-2) 65 18- 72 mol/L Lab Interpretation (test code = 68641-2) Normal [facility]2019-[facility] 03:37:00* Test Item Value Reference Range Interpretation Comments AMMONIA (BEAKER) (test code = 348) 65 mol/L 18-72 PT/[id number] 02:35:00* Test Item Value Reference Range Interpretation Comments PROTIME (BEAKER) (test code = 759) 17.5 seconds 11.9-14.2 H INR (BEAKER) (test code = 370) 1.5 <=5.9 PARTIAL THROMBOPLASTIN TIME (BEAKER) (test code = 760) 52.3 seconds 22.5-36.0 H Effective 07/24/2018: PT Reference Range ChangeNew: 11.9-14.2 Previous: 11.7-14. 7RECOMMENDED COUMADIN/WARFARIN INR THERAPY RANGESSTANDARD DOSE: 2.0-3.0 Include s: PROPHYLAXIS for venous thrombosis, systemic embolization; TREATMENT for venou s thrombosis and/or pulmonary embolus.HIGH RISK: Target INR is 2.5-3.5 for patie nts wiht mechanical heart valves.COMPREHENSIVE METABOLIC [id number] 02:26:00* Test Item Value Reference Range Interpretation Comments TOTAL PROTEIN (BEAKER) (test code = 770) 6.6 gm/dL 6.0-8.3 Specimen slightly hemolyzed ALBUMIN (BEAKER) (test code = 1145) 3.6 g/dL 3.5-5.0 Specimen slightly hemolyzed ALKALINE PHOSPHATASE (BEAKER) (test code = 346) 152 U/L 40-150 H BILIRUBIN TOTAL (BEAKER) (test code = 377) 19.7 mg/dL 0.2-1.2 H Specimen slightly hemolyzed SODIUM (BEAKER) (test code = 381) 138 meq/L 136-145 POTASSIUM (BEAKER) (test code = 379) 4.6 meq/L 3.5-5.1 Specimen slightly hemolyzed CHLORIDE (BEAKER) (test code = 382) 97 meq/L 98-107 L CO2 (BEAKER) (test code = 355) 26 meq/L 22-29 BLOOD UREA NITROGEN (BEAKER) (test code = 354) 7 mg/dL 7-21 CREATININE (BEAKER) (test code = 358) 3.00 mg/dL 0.57-1.25 H Specimen slightly hemolyzed GLUCOSE RANDOM (BEAKER) (test code = 652) 93 mg/dL 70-105 CALCIUM (BEAKER) (test code = 697) 9.2 mg/dL 8.4-10.2 AST (SGOT) (BEAKER) (test code = 353) 106 U/L 5-34 H Specimen slightly hemolyzed ALT (SGPT) (BEAKER) (test code = 347) 30 U/L 6-55 Specimen slightly hemolyzed EGFR (BEAKER) (test code = 1092) 23 mL/min/1.73 sq m ESTIMATED GFR IS NOT ACCURATE CREATININE CLEARANCE IN PREDICTING GLOMERULAR FILTRATION RATE. ESTIMATED GFR IS NOT APPLICABLE FOR DIALYSIS PATIENTS. Specimen markedly ictericTROPONIN [id number] 02:24:00* Test Item Value Reference Range Interpretation Comments TROPONIN I (BEAKER) (test code = 397) < ng/mL 0.00-0.03 Troponin I (TnI) levels must be interpreted in the context of the presenting sym ptoms and the clinical findings. Elevated TnI levels indicate myocardial damage, but are not specific for ischemic heart disease. Elevated TnI levels are seen i n patients with other cardiac conditions (including myocarditis and congestive h eart failure), and slight TnI elevations occur in patients with other conditions , including sepsis, renal failure, acidosis, acute neurological disease, and per sistent tachyarrhythmia.[id number] 02:21:00* Test Item Value Reference Range Interpretation Comments MAGNESIUM (BEAKER) (test code = 627) 2.1 mg/dL 1.6-2.6 Specimen slightly hemolyzed POCT-LACTIC ACID, [id number] 02:17:00* Test Item Value Reference Range Interpretation Comments POC-LACTIC ACID, VENOUS (BEAKER) (test code = 2805) 4.0 mmol/L 0. 9-1.7 H TESTED AT [facility] [address] [facility] [address] CBC W/PLT COUNT & AUTO [id number] 02:09:00* Test Item Value Reference Range Interpretation Comments WHITE BLOOD CELL COUNT (BEAKER) (test code = 775) 5.4 K/ L 3.5- 10.5 RED BLOOD CELL COUNT (BEAKER) (test code = 761) 1.76 M/ L 4.63-6 .08 L HEMOGLOBIN (BEAKER) (test code = 410) 6.0 GM/DL 13.7-17.5 LL HEMATOCRIT (BEAKER) (test code = 411) 17.8 % 40.1-51.0 L MEAN CORPUSCULAR VOLUME (BEAKER) (test code = 753) 101.1 fL 79. 0-92.2 H MEAN CORPUSCULAR HEMOGLOBIN (BEAKER) (test code = 751) 34.1 pg 25.7-32.2 H MEAN CORPUSCULAR HEMOGLOBIN CONC (BEAKER) (test code = 752) 33.7 GM/DL 32.3-36.5 RED CELL DISTRIBUTION WIDTH (BEAKER) (test code = 412) 17.5 % 11.6-14.4 H PLATELET COUNT (BEAKER) (test code = 756) 79 K/CU MM 150-450 L MEAN PLATELET VOLUME (BEAKER) (test code = 754) 13.2 fL 9.4-12 .4 H NUCLEATED RED BLOOD CELLS (BEAKER) (test code = 413) 0 /100 WBC 0 -0 NEUTROPHILS RELATIVE PERCENT (BEAKER) (test code = 429) 54 % LYMPHOCYTES RELATIVE PERCENT (BEAKER) (test code = 430) 26 % MONOCYTES RELATIVE PERCENT (BEAKER) (test code = 431) 13 % EOSINOPHILS RELATIVE PERCENT (BEAKER) (test code = 432) 7 % BASOPHILS RELATIVE PERCENT (BEAKER) (test code = 437) 0 % NEUTROPHILS ABSOLUTE COUNT (BEAKER) (test code = 670) 2.93 K/ L 1.78-5.38 LYMPHOCYTES ABSOLUTE COUNT (BEAKER) (test code = 414) 1.41 K/ L 1.32-3.57 MONOCYTES ABSOLUTE COUNT (BEAKER) (test code = 415) 0.68 K/ L 0. 30-0.82 EOSINOPHILS ABSOLUTE COUNT (BEAKER) (test code = 416) 0.38 K/ L 0.04-0.54 BASOPHILS ABSOLUTE COUNT (BEAKER) (test code = 417) 0.02 K/ L 0. 01-0.08 IMMATURE GRANULOCYTES-RELATIVE PERCENT (BEAKER) (test code = 2801) 0 % 0-1 RAD, CHEST, 1 VIEW, NON [id number] 01:50:00Reason for exam:->chest painShould this be performed at the bedside?->YesFINAL REPORT History: Chest pain. Comparison: 11/12/2018 Findings: A single view of the chest is submitted. The cardiomediastinal contours are unremarkable. There is no focal consolidation, pneumothorax, large pleural effusion or evidence of overt pulmonary edema. There is no acute bony abnormality. A tunneled right IJ dialysis catheter is in place. Impression: No acute abnormality. Signed: Katherine Reich Verified Date/Time: 12/21/2018 01:50:02 , KNEE, COMPLETE (4 VIEWS), [id number] 01:49:00Reason for exam:->LACERATIONFINAL REPORT CLINICAL HISTORY: Trauma and pain, laceration COMPARISON: None. FINDINGS: 5 views of the right knee are submitted. There is soft tissue irregularity at the infrapatellar/pretibial soft tissues of the kne e, probably the laceration described in the history. The patellofemoral alignmen t is normal. There is no acute fracture, malalignment or radiopaque foreign body . No significant knee joint effusion is present. Signed: Katherine Reich Verified Date/Time: 12/21/2018 01:49:02 knee complete 4 views [id number] 01:49:00Interface, External Ris In - 12/21/2018 1:51 AM CDTFINAL REPORT CLINICAL HISTORY: Trauma and pain, laceration COMPARISON: None. FINDINGS: 5 views of the right knee are submitted. There is soft tissue irregularity at the infrapatellar/pretibial soft tissues of the knee, probably the laceration described in the history. The patellofemoral alignment is normal. There is no acute fracture, malalignment or radiopaque foreign body. No significant knee joint effusion is present. Signed: Katherine Reich MDReport Verified Date/Time: 12/21/2018 01:49:02 [facility] 2018-[facility] 01:10:14HatfVíctor bruner MD 12/24/2018 4:23 AMCritical CarePerformed by: Víctor Breen MDAuthorized by: Víctor Breen MD Total critical care time: 60 minutesCritical care time was exclusive of separately billable procedures and treating other patients and teaching time.Critical care was necessary to treat or prevent imminent or life- threatening deterioration of the following conditions: hepatic failure and circulatory failure.Critical care was time spent personally by me on the following activities: blood draw for specimens, development of treatment plan with patient or surrogate, discussions with consultants, interpretation of cardiac output measurements, evaluation of patient's response to treatment, examination of patient, obtaining history from patient or surrogate, ordering and performing treatments and interventions, ordering and review of laboratory studies, ordering and review of radiographic studies, pulse oximetry, re- evaluation of patient's condition and review of old charts. [facility] [id number] 07:44:00* Test Item Value Reference Range Interpretation Comments SCAN RESULT (test code = 0309716) Manual [id number] 15:07:00* Test Item Value Reference Range Interpretation Comments % Neutros (manual) (test code = 1359) 80 % % Lymphs (manual) (test code = 1360) 6 % % Monos (manual) (test code = 1361) 7 % % Eos (manual) (test code = 1362) 4 % % Baso (manual) (test code = 1363) 0 % % Bands (manual) (test code = 1348) 3 % 0-10 # Neutros (manual) (test code = 1365) 15.76 1.80- 8.00 K/L H # Lymphs (manual) (test code = 1366) 1.18 1.48- 4.50 K/L L # Monos (manual) (test code = 1367) 1.38 0.00- 1.30 K/L H # Eos (manual) (test code = 1368) 0.79 0.00- 0.50 K/L H # Baso (manual) (test code = 1369) 0.00 0.00- 0.20 K/L # Bands (manual) (test code = 1349) 0.6 0.0- 0.8 K/L Total Counted (test code = 1351) 100 Bands plus Segmented Neutrophils (test code = 1352) 16.35 WBC Morphology (test code = 487) Normal Platelet Morphology (test code = 486) Normal Anisocytosis (test code = 961) 2+ moderate Antelope Cells (test code = 474) 2+ moderate Poikilocytes (test code = 966) 1+ few Lab Interpretation (test code = 58724-3) Abnormal [facility] W/PLT COUNT & AUTO [id number] 15:07:00* Test Item Value Reference Range Interpretation Comments WHITE BLOOD CELL COUNT (BEAKER) (test code = 775) 19.7 K/ L 3.5- 10.5 H RED BLOOD CELL COUNT (BEAKER) (test code = 761) 2.30 M/ L 4.63-6 .08 L HEMOGLOBIN (BEAKER) (test code = 410) 7.9 GM/DL 13.7-17.5 L HEMATOCRIT (BEAKER) (test code = 411) 25.3 % 40.1-51.0 L MEAN CORPUSCULAR VOLUME (BEAKER) (test code = 753) 110.0 fL 79. 0-92.2 H Discordant result compared to previous result; clinical correlation required. MEAN CORPUSCULAR HEMOGLOBIN (BEAKER) (test code = 751) 34.3 pg 25.7-32.2 H MEAN CORPUSCULAR HEMOGLOBIN CONC (BEAKER) (test code = 752) 31.2 GM/DL 32.3-36.5 L RED CELL DISTRIBUTION WIDTH (BEAKER) (test code = 412) 18.9 % 11.6-14.4 H PLATELET COUNT (BEAKER) (test code = 756) 113 K/CU MM 150-450 L MEAN PLATELET VOLUME (BEAKER) (test code = 754) 11.3 fL 9.4-12 .4 NUCLEATED RED BLOOD CELLS (BEAKER) (test code = 413) 0 /100 WBC 0 -0 (MANUAL DIFFERENTIAL)2018-11-15 15:07:00* Test Item Value Reference Range Interpretation Comments NEUTROPHILS - REL (DIFF) (BEAKER) (test code = 1359) 80 % LYMPHOCYTES - REL (DIFF) (BEAKER) (test code = 1360) 6 % MONOCYTES - REL (DIFF) (BEAKER) (test code = 1361) 7 % EOSINOPHILS - REL (DIFF) (BEAKER) (test code = 1362) 4 % BASOPHILS - REL (DIFF) (BEAKER) (test code = 1363) 0 % BANDS - REL (DIFF) (BEAKER) (test code = 1348) 3 % 0-10 NEUTROPHILS - ABS (DIFF) (BEAKER) (test code = 1365) 15.76 K/ L 1 .80-8.00 H LYMPHOCYTES - ABS (DIFF) (BEAKER) (test code = 1366) 1.18 K/ L 1 .48-4.50 L MONOCYTES - ABS (DIFF) (BEAKER) (test code = 1367) 1.38 K/ L 0.0 0-1.30 H EOSINOPHILS - ABS (DIFF) (BEAKER) (test code = 1368) 0.79 K/ L 0 .00-0.50 H BASOPHILS - ABS (DIFF) (BEAKER) (test code = 1369) 0.00 K/ L 0.0 0-0.20 BANDS-ABS (DIFF) (BEAKER) (test code = 1349) 0.6 K/ L 0.0-0.8 TOTAL COUNTED (BEAKER) (test code = 1351) 100 BANDS + SEGMENTED NEUTROPHILS (BEAKER) (test code = 1352) 16.35 WBC MORPHOLOGY (BEAKER) (test code = 487) Normal PLT MORPHOLOGY (BEAKER) (test code = 486) Normal ANISOCYTOSIS (BEAKER) (test code = 961) 2+ moderate ALL CELLS (BEAKER) (test code = 474) 2+ moderate POIKILOCYTES (BEAKER) (test code = 966) 1+ few [id number] 14:49:00* Test Item Value Reference Range Interpretation Comments PHOSPHORUS (BEAKER) (test code = 604) 2.4 mg/dL 2.3-4.7 ANG, TUNNELED CATHETER [id number] 10:01:00Reason for exam:->please place tunnelled hd cath for patient on dialysisReason for exam:->patient will need ffp ammonia nitrate operator to procedure due to high inr on vitamin kFINAL REPORT Conversion of a nontunneled to tunneled dialysis catheter. History: Renal failure. Modality: Fluoroscopy. Sedation: Moderate sedation was administered. 0.5 mg of Versed and 50 mcg of fentanyl IV was used for moderate sedation monitored under my direction. Total intra-service time of sedation was 30 minutes. The patient's vital signs were monitored throughout the procedure and recorded in the patient's medical record by the nurse. Senior Media Planner: Regis Ortega MD. Manager Data Warehousing: None. Approach: Right internal jugular vein Estimated [...] by blunt dissection. A 19 cm right [place] Duraflow 2 catheter was brought through the tunnel. The existing nontunneled hemodialysis catheter was then removed over the guidewire. A peel-away sheath was placed in the right IJ vein and the catheter was advanced through the sheath, with its distal tip termi nating in the right atrium. The peel-away sheath was removed. The ports were fl ushed and aspirated easily following placement. The catheter was sutured to the skin with 2-0 proline to secure its placement. A resorbable pursestring suture s placed at the catheter exit site. The small jugular incision site was closed u sing resorbable suture. Vital signs were monitored throughout the procedure by a nurse, and remained stable. The patient tolerated the procedure well and left the department in the same condition. Results: Spot radiogr aph of the chest demonstrates the new dialysis catheter to lie in the expected p osition with its tip overlying the superior right atrium. Impression: Successful, uncomplicated conversion of a nontunne led right internal jugular to a tunneled dialysis catheter. Signed: Rocio Ortega MDReport Verified Date/Time: 11/15/2018 10:01:43 Reading Location: [place] [id number] Angio Body Reading Room Tunneled Catheter [id number] 10:01:00Interface, External Ris In - 11/15/2018 10:03 AM CDTFINAL REPORT Conversion of a nontunneled to tunneled dialysis catheter. History: Renal failure. Modality: Fluoroscopy. Sedation: Moderate sedation was administered. 0.5 mg of Versed and 50 mcg of fentanyl IV was used for moderate sedation monitored under my direction. Total intra-service time of sedation was 30 minutes. The patient's vital signs were monitored throughout the procedure and recorded in the patient's medical record by the nurse. [facility] Hvac R Tech: Regis Ortega MD. Manager Data Warehousing: None. Approach: Right internal jugular vein Estimated [...] by blunt dissection. A 19 cm right Emir[place] Duraflow 2 catheter was brought through the [...] department in the same condition. Results: Spot radiogr aph of the chest demonstrates the new dialysis catheter to lie in the expected p osition with its tip overlying the superior right atrium. Impression: Successful, uncomplicated conversion of a nontunne led right internal jugular to a tunneled dialysis catheter. Signed: Rocio Ortega MDReport Verified Date/Time: 11/15/2018 10:01:43 Reading Location: [address] Body Reading Room [facility] 2018-11-15 07:46:00* Test Item Value Reference Range Interpretation Comments TOTAL PROTEIN (BEAKER) (test code = 770) 5.3 gm/dL 6.0-8.3 L ALBUMIN (BEAKER) (test code = 1145) 3.1 g/dL 3.5-5.0 L BILIRUBIN TOTAL (BEAKER) (test code = 377) 44.1 mg/dL 0.2-1.2 H BILIRUBIN DIRECT (BEAKER) (test code = 706) 30.5 mg/dL 0.1-0.5 H ALKALINE PHOSPHATASE (BEAKER) (test code = 346) 132 U/L 40-150 AST (SGOT) (BEAKER) (test code = 353) 111 U/L 5-34 H ALT (SGPT) (BEAKER) (test code = 347) 46 U/L 6-55 Specimen markedly ictericBASIC METABOLIC [id number] 07:46:00* Test Item Value Reference Range Interpretation Comments SODIUM (BEAKER) (test code = 381) 132 meq/L 136-145 L POTASSIUM (BEAKER) (test code = 379) 3.9 meq/L 3.5-5.1 CHLORIDE (BEAKER) (test code = 382) 97 meq/L 98-107 L CO2 (BEAKER) (test code = 355) 24 meq/L 22-29 BLOOD UREA NITROGEN (BEAKER) (test code = 354) 20 mg/dL 7-21 CREATININE (BEAKER) (test code = 358) 3.19 mg/dL 0.57-1.25 H GLUCOSE RANDOM (BEAKER) (test code = 652) 165 mg/dL 70-105 H CALCIUM (BEAKER) (test code = 697) 8.8 mg/dL 8.4-10.2 EGFR (BEAKER) (test code = 1092) 22 mL/min/1.73 sq m ESTIMATED GFR IS NOT ACCURATE CREATININE CLEARANCE IN PREDICTING GLOMERULAR FILTRATION RATE. ESTIMATED GFR IS NOT APPLICABLE FOR DIALYSIS PATIENTS. Specimen markedly ictericCBC W/PLT COUNT & AUTO [id number] 06:23:00 * Test Item Value Reference Range Interpretation Comments WHITE BLOOD CELL COUNT (BEAKER) (test code = 775) 17.1 K/ L 3.5- 10.5 H RED BLOOD CELL COUNT (BEAKER) (test code = 761) 2.06 M/ L 4.63-6 .08 L HEMOGLOBIN (BEAKER) (test code = 410) 6.9 GM/DL 13.7-17.5 L HEMATOCRIT (BEAKER) (test code = 411) 21.0 % 40.1-51.0 L MEAN CORPUSCULAR VOLUME (BEAKER) (test code = 753) 101.9 fL 79. 0-92.2 H MEAN CORPUSCULAR HEMOGLOBIN (BEAKER) (test code = 751) 33.5 pg 25.7-32.2 H MEAN CORPUSCULAR HEMOGLOBIN CONC (BEAKER) (test code = 752) 32.9 GM/DL 32.3-36.5 RED CELL DISTRIBUTION WIDTH (BEAKER) (test code = 412) 18.7 % 11.6-14.4 H PLATELET COUNT (BEAKER) (test code = 756) 89 K/CU MM 150-450 L MEAN PLATELET VOLUME (BEAKER) (test code = 754) 11.3 fL 9.4-12 .4 NUCLEATED RED BLOOD CELLS (BEAKER) (test code = 413) 0 /100 WBC 0 -0 NEUTROPHILS RELATIVE PERCENT (BEAKER) (test code = 429) 80 % LYMPHOCYTES RELATIVE PERCENT (BEAKER) (test code = 430) 5 % MONOCYTES RELATIVE PERCENT (BEAKER) (test code = 431) 8 % EOSINOPHILS RELATIVE PERCENT (BEAKER) (test code = 432) 5 % BASOPHILS RELATIVE PERCENT (BEAKER) (test code = 437) 0 % NEUTROPHILS ABSOLUTE COUNT (BEAKER) (test code = 670) 13.64 K/ L 1.78-5.38 H LYMPHOCYTES ABSOLUTE COUNT (BEAKER) (test code = 414) 0.89 K/ L 1.32-3.57 L MONOCYTES ABSOLUTE COUNT (BEAKER) (test code = 415) 1.43 K/ L 0. 30-0.82 H EOSINOPHILS ABSOLUTE COUNT (BEAKER) (test code = 416) 0.81 K/ L 0.04-0.54 H BASOPHILS ABSOLUTE COUNT (BEAKER) (test code = 417) 0.06 K/ L 0. 01-0.08 IMMATURE GRANULOCYTES-RELATIVE PERCENT (BEAKER) (test code = 2801) 2 % 0-1 H PROTHROMBIN [id number] 06:20:00* Test Item Value Reference Range Interpretation Comments PROTIME (BEAKER) (test code = 759) 20.8 seconds 11.9-14.2 H INR (BEAKER) (test code = 370) 1.9 <=5.9 Effective 07/24/2018: PT Reference Range ChangeNew: 11.9-14.2 Previous: 11.7-14. 7RECOMMENDED COUMADIN/WARFARIN INR THERAPY RANGESSTANDARD DOSE: 2.0-3.0 Include s: PROPHYLAXIS for venous thrombosis, systemic embolization; TREATMENT for venou s thrombosis and/or pulmonary embolus.HIGH RISK: Target INR is 2.5-3.5 for patie nts wiht mechanical heart valves.BLOOD [id number] 02:01:00* Test Item Value Reference Range Interpretation Comments CULTURE (BEAKER) (test code = 1095) No growth in 5 days BLOOD [id number] 02:01:00* Test Item Value Reference Range Interpretation Comments CULTURE (BEAKER) (test code = 1095) No growth in 5 days HEPATIC FUNCTION [id number] 08:23:00* Test Item Value Reference Range Interpretation Comments TOTAL PROTEIN (BEAKER) (test code = 770) 5.5 gm/dL 6.0-8.3 L ALBUMIN (BEAKER) (test code = 1145) 3.2 g/dL 3.5-5.0 L BILIRUBIN TOTAL (BEAKER) (test code = 377) 44.9 mg/dL 0.2-1.2 H BILIRUBIN DIRECT (BEAKER) (test code = 706) 28.8 mg/dL 0.1-0.5 H ALKALINE PHOSPHATASE (BEAKER) (test code = 346) 136 U/L 40-150 AST (SGOT) (BEAKER) (test code = 353) 142 U/L 5-34 H ALT (SGPT) (BEAKER) (test code = 347) 65 U/L 6-55 H Specimen markedly ictericBASIC METABOLIC [id number] 08:15:00* Test Item Value Reference Range Interpretation Comments SODIUM (BEAKER) (test code = 381) 138 meq/L 136-145 POTASSIUM (BEAKER) (test code = 379) 4.1 meq/L 3.5-5.1 CHLORIDE (BEAKER) (test code = 382) 100 meq/L 98-107 CO2 (BEAKER) (test code = 355) 26 meq/L 22-29 BLOOD UREA NITROGEN (BEAKER) (test code = 354) 14 mg/dL 7-21 CREATININE (BEAKER) (test code = 358) 2.44 mg/dL 0.57-1.25 H GLUCOSE RANDOM (BEAKER) (test code = 652) 108 mg/dL 70-105 H CALCIUM (BEAKER) (test code = 697) 9.1 mg/dL 8.4-10.2 EGFR (BEAKER) (test code = 1092) 30 mL/min/1.73 sq m ESTIMATED GFR IS NOT ACCURATE CREATININE CLEARANCE IN PREDICTING GLOMERULAR FILTRATION RATE. ESTIMATED GFR IS NOT APPLICABLE FOR DIALYSIS PATIENTS. Specimen markedly ictericPROTHROMBIN TIME/[id number] 05:54:00* Test Item Value Reference Range Interpretation Comments PROTIME (BEAKER) (test code = 759) 20.3 seconds 11.9-14.2 H INR (BEAKER) (test code = 370) 1.8 <=5.9 Effective 07/24/2018: PT Reference Range ChangeNew: 11.9-14.2 Previous: 11.7-14. 7RECOMMENDED COUMADIN/WARFARIN INR THERAPY RANGESSTANDARD DOSE: 2.0-3.0 Include s: PROPHYLAXIS for venous thrombosis, systemic embolization; TREATMENT for venou s thrombosis and/or pulmonary embolus.HIGH RISK: Target INR is 2.5-3.5 for patie nts wiht mechanical heart valves.CBC W/PLT COUNT & AUTO [id number] 05:45:00* Test Item Value Reference Range Interpretation Comments WHITE BLOOD CELL COUNT (BEAKER) (test code = 775) 16.1 K/ L 3.5- 10.5 H RED BLOOD CELL COUNT (BEAKER) (test code = 761) 2.17 M/ L 4.63-6 .08 L HEMOGLOBIN (BEAKER) (test code = 410) 7.4 GM/DL 13.7-17.5 L HEMATOCRIT (BEAKER) (test code = 411) 21.5 % 40.1-51.0 L MEAN CORPUSCULAR VOLUME (BEAKER) (test code = 753) 99.1 fL 79. 0-92.2 H MEAN CORPUSCULAR HEMOGLOBIN (BEAKER) (test code = 751) 34.1 pg 25.7-32.2 H MEAN CORPUSCULAR HEMOGLOBIN CONC (BEAKER) (test code = 752) 34.4 GM/DL 32.3-36.5 RED CELL DISTRIBUTION WIDTH (BEAKER) (test code = 412) 18.6 % 11.6-14.4 H PLATELET COUNT (BEAKER) (test code = 756) 75 K/CU MM 150-450 L MEAN PLATELET VOLUME (BEAKER) (test code = 754) 11.1 fL 9.4-12 .4 NUCLEATED RED BLOOD CELLS (BEAKER) (test code = 413) 0 /100 WBC 0 -0 NEUTROPHILS RELATIVE PERCENT (BEAKER) (test code = 429) 77 % LYMPHOCYTES RELATIVE PERCENT (BEAKER) (test code = 430) 6 % MONOCYTES RELATIVE PERCENT (BEAKER) (test code = 431) 11 % EOSINOPHILS RELATIVE PERCENT (BEAKER) (test code = 432) 5 % BASOPHILS RELATIVE PERCENT (BEAKER) (test code = 437) 0 % NEUTROPHILS ABSOLUTE COUNT (BEAKER) (test code = 670) 12.34 K/ L 1.78-5.38 H LYMPHOCYTES ABSOLUTE COUNT (BEAKER) (test code = 414) 0.97 K/ L 1.32-3.57 L MONOCYTES ABSOLUTE COUNT (BEAKER) (test code = 415) 1.69 K/ L 0. 30-0.82 H EOSINOPHILS ABSOLUTE COUNT (BEAKER) (test code = 416) 0.80 K/ L 0.04-0.54 H BASOPHILS ABSOLUTE COUNT (BEAKER) (test code = 417) 0.06 K/ L 0. 01-0.08 IMMATURE GRANULOCYTES-RELATIVE PERCENT (BEAKER) (test code = 2801) 2 % 0-1 H Tissue [id number] 14:34:00* Test Item Value Reference Range Interpretation Comments Case Report (test code = 104) Surgical Pathology Repor t Case: [id number] Authorizing Provider: Devyn Lantigua MD Collected: 11/10/2018 1325 Ordering Location: [address] Received: 11/11/2018 0818 Service Pathologist: Be Arenas MD Specimens: A) - Polyp, Colon - Sigmoid, sigmoid polyp bx B) - Cecum, cecum ulcer bx ADDENDUM (test code = 3381) u9gztARaWBGncQYgKlWzKFCyIMRwr2sfNAOubRMjEkHoEsCkRfPmMnmomCRwSZRmDkBng0jli560oSBe l5goHKNsQnR6xVNxWAEarYIwF428r0elz8pnhxBzyCD4XHRsIXJ5VHeenfByqeB1NVmieJAlPzG7DHxp zbAmIWnicxQrsaFnVvt0ITGdX119WOO6nBtvo1yxAR K4LKFwHRZpOiRgAz2mrTCcI173NSXxBGWZXOCyySd3SJLhhqUmnjQzhOOIz721N029p3ubITKeknKhmM kRxrabz5yyB277AKGtwGTpddIoGrGmTMXunJViyZV6SQGzIK7mhyuoNOaiBPwzQCUnhtI6ZJPdiQFqH1 JtVMZoOM4hvvzbKVC1PCccMEIqOCL3FkYcHRPfm4Kx awk7RcIlzk1rqg06IGI1b7TwoPdrNLW4JZC4DjJlWf0vqEReAVOeOJ6bUmIbdDMoYCHvew80oEijGNkr pfRzuB4vFfPzQPKqxQQtFYKtJS9stRRkFRMxoO2thcbaEVOkHaMmdjrrPEHthUcneaSbHv5orNogWGN2 KOqkJ6pqjK6wAoT5SOfcN7yrdS0oVLm2DRgioQA0GM YxqT5fVG2nqodot4rtEZuxHAxfZHUdglY5cdS6YFDoqHBmW4YoyS9cWRSnUH1djzwfy8dkAHE9MEblBG SrPCX5LgNzPFSki5Ihezq8IwRcv1KtfPAnSUxhI25wr322WFFplmAvI3zoxBBaksrewWHmbdvsGUbbbf W7EBYgVMPgMKfzSKYlUOKtWjAqqROkReHrYcFxeSut kAfhYZguCzIwTEIxHUzcT9nqYtZmIzUiXQPHgU35hl8fvZXgpyOnVv9lFVaEOkEbJMzSOmHkWUScWGXL BBUktDCrAd1oiMCqYF3aKVQtt7ElGTQhAXRhCDHsVKektCr4DJ3utEKtsU== DIAGNOSIS (test code = 3220) w7kerZVcRSUkz0egVKBelNCtZvBlIlXmGbIbOaewtEJfHIkmddFhQAoyo3UqV7BnQtGdEAemmhTpSFCq GmccwqxjPOLpFDC5wnVkPUHmMJtbHLUdMNsrRu0wmKXzxNvuYzHwWXEcb3rzbwASkjdcbBq5c0pmMBPs GsB1xRYnMRqwO3glruBqmAMnGVCcPHu7uJ11HPGkmA 4hnDVqAZahzgWoZkX6SEjaRQIbTvF4QCSyqMHfPSAsP6mrPSAhWDnrVIUjKFjioFYyBKZ4kRuci8R0uK QoyYHqtGyxStFrCgYpQZYVi7GzHEy5rLirA4CgBEEpAcM5yNAbOPXmKWfzKBNuWIWjkcC8pQ82CLpdib N1uYMdi2Sfy57ay541yX9lnRNnUYU3PGJtVKYtwYIm NLFqGAG4PNSatEEbY4t3CiKvdEViC2G3OsFisVLoM5F0AyMepRHyO4D5PdVfsNVkYENcpROjKh9qcESc oETakg2jaw87AYX2q4YmvIgnLZY5RVR9FaJkKh5hnBPcKAReIV6oDqXeyAYcYVDxwq62bHwjCWrqndKw tO3bEvDxNDNqxSYcOOGhWB0nmIUhFSTqxX2ptrovPK HyPgJstfezGZNwaNrwfnGcVo8ouEpjQJM2QWakW0dikH3rHaD7YBvaR9goqT8yQUh7GRjfyEW5GNKakD 7wQF8wjsgxw5dvRwSjCM9yxtzrh4ywIuIcFM7ntgs9h6kdQnZzQY0xndfnr4imYuNvYNrbXTLlmfgcSZ Lqx5LqvecsCWUgf2QsN9BtwPgdX42yiPmaF65gXHKq sFjelY6znWtbsR6nTnDkRrDrFFbfoDmwuEAdeefuVPssqwWlLHxwlbvzXBYnDQepF1qfDmTtXJFxuHbg UPbxw6AmTLGiILCrWwOmFIPVNMVPJPBLG78MMYEsA63NT87qVA3PAEBkABTZZTxWUOWUO18NReifUWCs SFlQRVJQTEFTVElDIFBPTFlQLlxwYXJccGFyIFBBUl WcRfPAKCOSLTXKGV3PX5ybGn3CLNARZ3AXL2SVCLCYWPFUWlgfhSZdCL0AHoMJDRFBZetZPKCOQQcIGZ ANI6iEPIiLEUrEHOrqTLtLASPAHYwMHeHLMvYvHkQZKJ4OUeIPKIEJZRNTLEBNAmWSXhjqIQMsDhLPPP BBViXpSm1IDGjQOK0UVN1CDNVwEDFMP6ERGCLTAGcn L7PiIC2FMOTMEoPyW6VIO3lSM10MJikxVOSqOk9qXA4CEWnJVB7OCZBnR3VsAA0GDQ1NMGwMQd1DZGGH NsLKAysQCK9WQMOGNyBCMQ6FPA3KKR3tzEWaNBDZVHPQFFBPUm2IKKcYAWSUNP8XQcSxLJIyswMUTD8J Ez5UONNJSbLgSd2XDHCPOkYVEI6KUvyBNlGfKWBVIT rITtisCJHBGM7BER1zYV1aXf0RND4IXysuAWVrcKRzzPvsriYlGZbxp8LoKZkpRPXhKF3qbMidXAQsBW 3fAOQnN9knxF6fsgl9RlEnEDTdBjQ1IMHhzuZ1Iat4GAIvJMphz0yqj0RqIEWkQHj7dJdnHdLnWRVge7 zwguVoRaCvYADiUGLlKYSujZYcZ020b0zag6ejcdQo yJP5PSFgLCL7TYoduyJrdyH8GWugsQTnXfT1ARchhpQwRDcttpOsvaEpMco0RUGbW297PKO0kQmsn9pp LWE5FMAsFLDdFyDpEt9anBZrE224MTDhECWQDMXvlZa5PPSnyiRhffNyaWIOi072M867w5uuNMCxeiUd eLbBsyzio8kwE434PAWjzXZatiYyHnOkAHYzvTCjaJ G2EXHwKK7pgmaqDZogWFttLIPhvmY4DWPnkWOnG9OzZJNoNX2bxvqxQMR7TNjoRJIbJLR7XsUwPQMdz2 Ugbfj7UkZkst9rbz16WJX3w1IylAsaTXQ7FLZ6WcBrBs9jpDMoOAStKX2kJiArbWMmIDVtyd41mZlpDL wbARC7LZVsbnAda0Pjq3tvAoWoutDwU5caZ3GgLVLp CWQhOBXtZaDwbpNic6Jxm5KrsNEelTo2j8viWWGtJMIisZspq1ikCOU7OLSjeNGzQ8wgrX6mARXaPK8h aufsn9goVIthCVesWVUyzFY3rgF3UHWtnBGmX1KbkX3nTFNuGMeoXJPujfs3NdUyTa3fpGWhpTryXPdz YmtwYWdlXHBnbmNvbnRccGduZGVjXHBsYWluXHBsYW aeZXMeAFEfOjHulFkufDGhTdMpKjDjeHtyzUaeSPjvWxThIUNvRNhkQ7zdYjHtAoDdVqr2HDMuaBLzNO JfHvq2TTEdqJOkAOVSsMzdwE6eFZXeiFvaeH3qnCC1IFExkfDzqLBNzO5eGDVKuR6aXmE6KlTtVpG4HM QyNDlccGFyfX0= COMMENT (test code = 3359) p7wsiYWiIUZwqUNjXcQcSGHlGGKxm1ycJXKbrYKhYtZhGlCaUiXmNlnspKBrHPUgZuGiu8pam449gBGl j1ryYSOxIdS5sEJwSYWpzDReS355n8vtd1pvtoGpyWU8ORMaIKZ8SClipkQcooV1GGonrJJvVrK0LMlq fgZsAJdugsVubgZuNio3URNeY030WWM4eAjri6zdIZ L0FKOjNPHmPdFsRf3msGZkM431UXByAQPGDWJqkEo2AEBrnpJyenSpcEUNq121A436t6wcCDIpzdVazH zVmmzos3boN486YAFguTRbgaViSsGmWCRlgUStvNF4LVFgDF8iisldAjJzON8cehbbGsAlFC0kfre9Mo OcVF2mpymrHeCaYTdmISLafywrAHHsv3HsckfaCF5t D4Wlj6Q9pG0mnLPrVZWysGIqLwHaAFHyxc4orJAsBQqqj2NxSNM2prR9lZGdgHFjXWRgEL23Ufcfv7Ud QcjqPZI1BNAtibZfd6Qhj8ovLbPgidBoC1jfH2BhQJIkTOXgCNStJdNounEwh3Xsj5WgnMJouGe3g7gc YPYnVBXyuRqiu3zfJGV4YRBeS7P0wMKyx8whUBkxLW OmeXR8qsrlVRhwCHRzehL6hkxyBOutDBRqgKP5fbajQBuwAILoLqV2mcqjMCxtMMStGBX5ZTraz307AD Z0DUaaHuhvBEhsHXKglwQttzUkhEfrWGKrAEIwHLbwWVFfQBncCIMyOYYvSmRyaQdnzGmmmK2zAySsVd GePPvyBJ3qMVRrC4yvbHUwMPKsATCfP7hbKdKvuD5b rZfeTEzegxKjCTXAVpEsTvuhXS0nvS8liZyupM3cpMReoWMzpLVzkRIbnMYqXRMkwqUrju6wDSFkehYb eU6yyqHLADAlXS7kajT6ddS9QBM2gSPeuSajfRiuyOEoqZ8lgWcwzPlsicP5ulMlELAvf3AgtEd5JYUk d5ZyM5OjTUVph4QplZg0OKJZXDLuaGznHSKdDRKFFV DgL1X6JBUjb0d9cZYwVWIgR5AosFPxYDSkIZVfFXfwPM2lHOGgZUIsUS92WNVnCRK2cAFhh9Jik35yp0 DiI8SlDUKbgzUdV9O6OlPYgXBraZ8mDWQzwYOsguTjZLVsgtGyNTTpUEOiTCwpXT5bRK9inmJnc3qkK3 cfKT8cAFecfVWgv8TgLN7qpKksrOBtQKQhWREeG3Roe8NagIchzPqysEIqXUXqzh8= CPT Code(s) (test code = 3357) v9imrJOoUFPqzAFuPmTxRJZlFYPib1lkQYSppPBySaNhMiDiZyBzOyqasTPjHAInApCff4apc119fHOd w0vxPTKlJoM3wHCnZXEeoUDeI006u1znx5omczUfyVG5WLAfPAT6LEazbkSsmfO9GVlvqBJdJnW3LRwt bqMhVExhygStjtQoUkn4NOZxK182LDF9lNggy3deVH Q8HNQqUNQfCxEnIf9obECfG698XZBpOYRBQNRczKa5TOFdlkCvegViuAKWq397G179m3jrNSXigvHeoJ kNkcfox0knA559ZRCpaTYqrfIcFfXrOBFviCEhyHJ5DWJzCU4psojmIuMwZS2nxynrYaPtXZ3wnmy5Hh OoUR5fhtsmLgIdPDweWBRqceujFIQjd5PkickjUW8r O8Tnd0Y3jU2edKEeRDJlaEDxTvIoKSIbgf8ucUIwYYeds8JzGEP6mmP0oVCqyIKkZETaVK28Ltjkh7Ck HvauDVT1NNVlwkGbd4Nfa3nfDzLvapImQ0reS2JgDLBlXFQiESPzKwLhmdPil5Lzj8QidAXkkSe8d2tk WUVrVWMyuXlse6hxMET3KRKqP3K2zZHyg3sjGLzlCR LzeJE6qkhrNMybQXExunU5fzleULfpQMWdyZA7cjelNWvhHJRfOeD8ecjbKMarUPOsTIM0ONzgx411KM C7SNokNucwSCikHBMsvpVdkzMbtBtlCOVyRFUaWUefDAWuOPisRXCrHNCrAlJviOxnpDtfuJ4tGdNpTp YdOBhiCM6mLQIiM0kfzZPpEYTeDBJuF9prHzRbvB7o qBmbKJxnicBfUMe9EzG7vLLbGWm5LyWjFDB8LNA5GNk1QKJhyt0= CLINICAL HISTORY (test code = 3356) l2kxdSSrWRJhkJItCrTcVESgQCKry8uvYBBdtWWyGhZjRjCvAsMlVvgqzFHfUNHtOmMnu1gld388gTKp z9clFOJyGjK0zQLpFIFrwXNgZ321u7euj9fxvkVrlUN2IEVlOVR5MNwtxpQpheW8ZTduzJGtFsR3ZPfw skJcMWnwmlGybgVvNls0HIOtT353ODU6iFvjh0dtDQ V5AIRdRELeHfAsKy3cbOPxJ432JRCpHLDWPUYguUw3ICMridDszuJyhUVRi118X389u9coXKIohbThoO aWdpdev4nqB160ZZLcqPRbvsKbZsBwVEYelDVkzYM9ZQWcZR3dsjdeMdOeJL6qzxvkYkAtNW3xdoh7To YdPH6ewejdYdZwBYcbOHDkrbvkZNPqd2SffllvWR7w N5Jup9Z8mG2frAJeCYOldAQoPdEjMCRamz7vxCOlTCxdv1PzCJK2ecD3jKHhrFWfMTLzVR34Xgvyy8Hd ZwiaREM3WDDhagIaa6Cyd8hkKnLzfeXjO4eiJ1SrHDBwNXFkBCDdAxQxuqYvz9Azv9MvbTFkdTl4l6pj NLCyRLAeuFgmj3ybMAL5XHCpE3T9oWMnd4ifHBdrQE AeqDM3oexhWUdnUCQcfwM5doqpDCsgBWGjrNN6rrjaJPdzSKUuJoR5sxpcRGuyBDJdXMN3LFkog561ER U3KUyoEvglTBduISHbsrSsdvXmaQbpRRDoKZToZYzdSIXeVDroYXAxBURqGuEetNhfaIevxZ5wPaBbJh LyYWfhER4lJKGaJ5lbrAGrQSWbCZTxP0vzNdShqO 8xuLopALsjipVsLXLlhP4bLARhaFodqmUepMSncW== SPECIMEN SOURCE (test code = 3377) n5gzdLPrNSNvnNYmVvRtJVKuGXRfe6dcTGFoqXKrBiEuGjOpAaKwYxtzjYRmQTNyLcYtm1huj554gIYx v3vkWQBbHzE8kTLbHLTijQOxZ684e2gzv3wlltBfeBD4RHVwVXV9YGrafzNmiiG7MDonoNRtOyE9RDha isOiVUkvnaHcttHsUat1BXIvA654GFU2rSvcv3gzEQ Q9HMTaWILePhJkOp4crSKeM478UBPtDXUQLXAtcEh8CZPqblDhbwPnyKYNz664V402a4vyRXOusuZgsE kLbxlbz7jpI581ZDWbaGCawvNzOwQuNELhtLFyaNY3WWAtSB7omvozRmVeXE9ujzxeYzBrUE2oxoq3Sj ZeZZ5qskthQqXcOKmlFPSdephjMKRey7EkfqwrZM5m J6Uhj5W6nX2bbEEdCBOhhVCoXjUoJJGwkg5wcPIwDSwuc6YyYAS8pcM1hNRrjMFwVBAsRF04Rjwhq9Gw DacnKTE8TONdvnUts7Khr3pvPsRaubBdZ1syL3WsNOEvZKFhJVGqObVeaaPvd0Cio3JigIFeeIp1q0jm OJFkBVHqaEfhl3hpZWZ4VJLsW5Z8wVBhq7uiQYftQX GjoTX5cuqlUSunUIUwbqD5ivshXWguXWZqaUV6rmawTFnbPTUjTuS3yfdfLEveOMXnLCH6KQqtx443NK C5NJnpVpopWIdyDHGsiuGbkoNapUwrURKlSHZwRKrdOYRoEUbbVVHzAUYtUaHrkEjlyHjxqD2zOtIhIp YkUMehBC7nZQObZ6zpzBIuUKQyQOJaZ9mvCnKhyE8w gRldEUmrftPnNGIhGANvH88uhOFtvX6zdLRoCsmwxHA3IiVAGqKCEZV8fTO8sKAumfVxkU1wq9eiLIYa cn0= GROSS DESCRIPTION (test code = 3366) i6wsqTDfQTWgkKTiVfPhVHTtSVYdf2dxSJXyiNHxOxSzZbCpVqNrNqvftNKnYXUkBvFsm8qwd963fOVk j4zwQIBtCnM3wELdUHNfnYGeD055z1xsr5yufiQpjXJ5HHJwRIB2BFtismPxqwY3AWlymDUfQlC4LWeu epIyFMgzotYasrEwMlf8GFBhS436HNZ9zTwpt1tsUE T2ISZjQPPzTqLvBp3csCLbO745GQCdVGLHJXKucRt5WCXrugUthbHseMSIy302O589w9jyJGCafjSzvO oDurqdv7vpE047GKVcoIUyzeBnMpSmVNDwrQAawSO5HPPaCP6kgncuFbItOD9aksmhDtWpQC7yjlm9Os DvQU7gubioBhNjDAbdBKNrjvwzHDWkb0HwfdhkVZ4n G8Ryj6D5pY1osLWeXDMbiYZqWbEjGWKmjw8acKMnKQgeo6IqLFE5nfC0cNKrlHSbXRTmXJ38Dlrhh8Zy MotsNVI1TMBgtbXbb3Eti0pqCaMkufMsS7hsR8XrKFJaGAEyKICxQpHpopPcj6Cmr2QcnDAsxLv0s0hj MVRaSCJanSumh9xbBTT1QJEaT7C4jNLzo9ipYDysGM YsoFC1wtndTIdbRFEjuxB4gcfuZTiuGYPwnBS6frgtYZuiQILrTkO8tbdpEUbyESTvYUZ5VSbhl523LI M0AEmmCluwOSugPDNjgnNvlgLavTrjEPJfOEKjUGyjBJIrYZhhIENvPFHiTpPowMhzkLhndT0hPnJuJz LiWMhjYS3eMFBeL1vxpDPwOEBjMHKyW5xwEsPrkN9x lBbuJQwwxpFbEMBmnvKyUR0tNmIoIKb4QILdkM3dLj9jyNFolM5crUEqHXvcJTZ1sQYyOANeTSSaLBWj ON84P0QsprPfIWycBVSvVHGohO2dQA32kUCjxfOooaBkEsDrrRcrPFNmo2njnn9ynQewh7qlMnRaydJn FQEbKtJzaFH3KZ8ye21skTF6aSHryQZvAwTcA95djl CbRKxqcJDbJPojDVN6Ej5yrYIxNXWaogG3h7XiUKbgNQWxDpicXYLwxACeHLPtqsRzKo5sErScAYs1MU OxuI5lWo9qaBMlfC5joVXlNBaaSQG4xXNtMXUdFLQbLLCkNF76H6HuoeXoQOmjEYAwREIchJ8wFP85bW GggkMedbNnQaImN2FqGpGcqaKfRr66fgWwatZbO8Do TQJdgOJzIGAySuFbaBrnu3VjJIVgGCqfME94rnAbGS2vmD3mMOYkVQ5lYxBhA71lCHpkyRJdRHShNCTn aEZjfSW8QISvuA0xwK10qtQsadLROF8sU6orVIsoSAYatn2= MICROSCOPIC DESCRIPTION (test code = 3371) z4vldPXpOCWhqOFcDaJfDNXsLKGir7sdDRFfuMOvPjEzRfOpLkXlSyrsiHJxNIJpWdWfw4kmm617qZWo u9frJKFxDpU7mWJkAIIrjTUeM355b9obo0iukxIgyTR0ARXzWGP9RUjzmdNmiaP2EMakuKAlUeW6ZUgz wvAbCNtxedEsyiCjBcq7CNOuU725WHK7lQaot2wcWS E1RBCsWKCnHiYsEh8qpZGkM445GZYdADGMANFptHw8EIYnvfCipcPhsBNUe907F121h7cbQOReiiVngJ pIfbcix9apD906TNBhcRAhokWgIdSlRTTdkJEqaOH2UNRuPE3ctlblOpWqFD4szuzgTjKfKQ6wtfi5Uz ReHR3mrgztIaKfSOeaYFNbyvyhDZIhx7QdbavwAU3g P0Jbv3S6qP0ozRXzNQBjvAYyTaHkDTPqoj0vxTAeYZyan0WvICE4evG1pTLpxRHxCWCsNG33Rfnhy1Va FkkeXQJ6GEUokaCrg3Nlc7slImCyplJcQ6tpD7XvWOSsIKGkNTNrStVvrzFmx1Lia3GgrNYzqAu4m7jz ZZFwWRZugRrkh4dhRVW0CUXbA7C6aYCkh1nlEHuoEI TygOQ2pehpNDznGNIzgsW1cedwKRmqKEUjcLP0wbnkVOlyUOLqTpT0uaghYFtxYRQfHPX8UQphx197UE C8OZigDclsXSdoXHGjchTppfFxeXkfMEAaFVRhGOdwAJDiENyrLQXgAVDgZvCiwBjblQpblM1kOtFcEx AwSOipZO0xOLLkX2ecbHXkXCDaGUExD8ysWyNusO7qcGaiFJikepGhINHgpvYseo8xDO0sVSOqpu8= SPECIAL STUDIES (test code = 3376) [file] FngDdtrQ8xMtUtMsHxSEpcVUN3 [facility] [id number] 14:34:00Surgical Pathology Report Case: [id number] Authorizing Provider: Devyn Lantigua MD Collected: 11/10/2018 1325 Ordering Location: [address] Received: 11/11/2018 0818 Service Pathologist: Be Arenas MD Specimens: A) - Polyp, Colon - Sigmoid, sigmoid polyp bx B) - Cecum, cecum ulcer bx Immunostains for HSV1, HSV2, and CMV performed on block B1 are negative.Addendum electronically signed by Be Arenas MD on 11/13/2018 at 2:34 PMPART A SIGMOID COLON POLYP, POLYPECTO MY:HYPERPLASTIC POLYP.PART B CECUM BIOPSY FOR SUSPECTED ULCER:NONSPECIFIC ACTIVE COLITIS WITH ULCERATION AND REGENERATIVE FEATURES.NEGATIVE FOR GRANULOMAS, DYSP LASIA, OR INVASIVE CARCINOMA.NO MORPHOLOGIC OR IMMUNOPHENOTYPIC EVIDENCE OF LYMP KEVIN.SEE DIAGNOSTIC COMMENT.IMMUNOSTAINS FOR VIRAL MARKERS PENDING, ADDENDUM TO FOLLOW. Signing Pathologist Direct Phone Line: [phone] s igned by Be Arenas MD on 11/12/2018 at 2:42 PMPreliminary result e lectronically signed by Be Arenas MD on 11/11/2018 at 4:22 PMPART B: Immunohistochemical studies performed on block B1 demonstrate the lymphoid po pulation to be positive for CD20 positive B cells and CD3/CD5 positive T cells. There is no aberrant co-expression of CD20 and CD5. Cyclin D1 is negative. There is no morphologic or immunophenotypic evidence of lymphoma.[id number], [id number], 8834 0c1Midik polyps A. Sigmoid polyp biopsy. B. Cecum ulcer biopsy Part A. Received in formalin labeled with the patient's name, accession number and "polyp, colon- sigmoid" is a 0.2 cm ugajardo soft tissue fragment, which is submitted in toto in A1. Part B. Received in formalin labeled with the patient's name, accession number a nd "cecum" are four irregular guajardo soft tissue fragments ranging 0.1-0.2 cm, whic h are submitted in toto in B1. CG/ew Performed. The interpretation of this case included the use of immunohistochemistry or special stains.BLOCK B1- HSV1, HSV2, CMV, CD20, CD3, CD5, CYCLIN K8Oamkrjx Slides Examined: In-house known positive controls were evaluated along with the test tissue. These control slides run a longside of the patients sample show appropriate staining. Internal positive and negative controls when available are evaluated Immunohistochemistry technical t esting was performed at [facility], Pathology Laboratory w here it was developed and its performance characteristics were determined. It tejeda s not been cleared or approved by the U.S. Food and Drug Administration. The FDA has determined that such clearance or approval is not necessary. The test is us ed for clinical purposes. It should not be regarded as investigational or for re search. This laboratory is certified under the Clinical Laboratory Improvement A mendments of 1988 (CLIA-88) as qualified to perform high complexity clinical lab oratory testing.[id number] 08:34:00* Test Item Value Reference Range Interpretation Comments PHOSPHORUS (BEAKER) (test code = 604) 2.3 mg/dL 2.3-4.7 HEMOGLOBIN AND [id number] 08:03:00* Test Item Value Reference Range Interpretation Comments HEMOGLOBIN (BEAKER) (test code = 410) 6.4 GM/DL 13.7-17.5 L HEMATOCRIT (BEAKER) (test code = 411) 19.1 % 40.1-51.0 L BASIC METABOLIC [id number] 06:42:00* Test Item Value Reference Range Interpretation Comments SODIUM (BEAKER) (test code = 381) 135 meq/L 136-145 L POTASSIUM (BEAKER) (test code = 379) 4.3 meq/L 3.5-5.1 CHLORIDE (BEAKER) (test code = 382) 99 meq/L 98-107 CO2 (BEAKER) (test code = 355) 26 meq/L 22-29 BLOOD UREA NITROGEN (BEAKER) (test code = 354) 22 mg/dL 7-21 H CREATININE (BEAKER) (test code = 358) 3.11 mg/dL 0.57-1.25 H GLUCOSE RANDOM (BEAKER) (test code = 652) 133 mg/dL 70-105 H CALCIUM (BEAKER) (test code = 697) 8.9 mg/dL 8.4-10.2 EGFR (BEAKER) (test code = 1092) 22 mL/min/1.73 sq m ESTIMATED GFR IS NOT ACCURATE CREATININE CLEARANCE IN PREDICTING GLOMERULAR FILTRATION RATE. ESTIMATED GFR IS NOT APPLICABLE FOR DIALYSIS PATIENTS. Specimen markedly ictericHEPATIC FUNCTION [id number] 06:41:00* Test Item Value Reference Range Interpretation Comments TOTAL PROTEIN (BEAKER) (test code = 770) 5.4 gm/dL 6.0-8.3 L ALBUMIN (BEAKER) (test code = 1145) 3.2 g/dL 3.5-5.0 L BILIRUBIN TOTAL (BEAKER) (test code = 377) 44.1 mg/dL 0.2-1.2 H BILIRUBIN DIRECT (BEAKER) (test code = 706) 29.9 mg/dL 0.1-0.5 H ALKALINE PHOSPHATASE (BEAKER) (test code = 346) 137 U/L 40-150 AST (SGOT) (BEAKER) (test code = 353) 146 U/L 5-34 H ALT (SGPT) (BEAKER) (test code = 347) 63 U/L 6-55 H Specimen markedly ictericCBC W/PLT COUNT & AUTO [id number] 06:36:00 * Test Item Value Reference Range Interpretation Comments WHITE BLOOD CELL COUNT (BEAKER) (test code = 775) 16.7 K/ L 3.5- 10.5 H RED BLOOD CELL COUNT (BEAKER) (test code = 761) 1.82 M/ L 4.63-6 .08 L HEMOGLOBIN (BEAKER) (test code = 410) 6.3 GM/DL 13.7-17.5 L HEMATOCRIT (BEAKER) (test code = 411) 18.4 % 40.1-51.0 L MEAN CORPUSCULAR VOLUME (BEAKER) (test code = 753) 101.1 fL 79. 0-92.2 H MEAN CORPUSCULAR HEMOGLOBIN (BEAKER) (test code = 751) 34.6 pg 25.7-32.2 H MEAN CORPUSCULAR HEMOGLOBIN CONC (BEAKER) (test code = 752) 34.2 GM/DL 32.3-36.5 RED CELL DISTRIBUTION WIDTH (BEAKER) (test code = 412) 17.3 % 11.6-14.4 H PLATELET COUNT (BEAKER) (test code = 756) 76 K/CU MM 150-450 L MEAN PLATELET VOLUME (BEAKER) (test code = 754) 10.9 fL 9.4-12 .4 NUCLEATED RED BLOOD CELLS (BEAKER) (test code = 413) 0 /100 WBC 0 -0 NEUTROPHILS RELATIVE PERCENT (BEAKER) (test code = 429) 76 % LYMPHOCYTES RELATIVE PERCENT (BEAKER) (test code = 430) 6 % MONOCYTES RELATIVE PERCENT (BEAKER) (test code = 431) 10 % EOSINOPHILS RELATIVE PERCENT (BEAKER) (test code = 432) 7 % BASOPHILS RELATIVE PERCENT (BEAKER) (test code = 437) 0 % NEUTROPHILS ABSOLUTE COUNT (BEAKER) (test code = 670) 12.74 K/ L 1.78-5.38 H LYMPHOCYTES ABSOLUTE COUNT (BEAKER) (test code = 414) 1.03 K/ L 1.32-3.57 L MONOCYTES ABSOLUTE COUNT (BEAKER) (test code = 415) 1.60 K/ L 0. 30-0.82 H EOSINOPHILS ABSOLUTE COUNT (BEAKER) (test code = 416) 1.08 K/ L 0.04-0.54 H BASOPHILS ABSOLUTE COUNT (BEAKER) (test code = 417) 0.04 K/ L 0. 01-0.08 IMMATURE GRANULOCYTES-RELATIVE PERCENT (BEAKER) (test code = 2801) 1 % 0-1 PROTHROMBIN TIME/[id number] 06:29:00* Test Item Value Reference Range Interpretation Comments PROTIME (BEAKER) (test code = 759) 20.8 seconds 11.9-14.2 H INR (BEAKER) (test code = 370) 1.9 <=5.9 Effective 07/24/2018: PT Reference Range ChangeNew: 11.9-14.2 Previous: 11.7-14. 7RECOMMENDED COUMADIN/WARFARIN INR THERAPY RANGESSTANDARD DOSE: 2.0-3.0 Include s: PROPHYLAXIS for venous thrombosis, systemic embolization; TREATMENT for venou s thrombosis and/or pulmonary embolus.HIGH RISK: Target INR is 2.5-3.5 for patie nts wiht mechanical heart valves.RAD, CHEST, 2 [id number] 23:58:00Reason for exam:->coughFINAL REPORT Chest, two views. MEDICAL HISTORY: Cough. COMPARISON STUDY: November 05, 2018. FINDINGS: The cardiac silhouette is unremarkable. There are bilateral mild increased interstitial markings. A right-sided central line is noted. There is no pleural effusion or pneumothorax. Degenerative changes are seen. IMPRESSION: Mild interstitial pulmonary markings. This may represent mild volume overload. Signed: Andrew Sloan MDReport Verified Date/Time: 11/12/2018 23:58:30 Reading Location: [facility] B1 C013W Consult Reading Room chest 2 [id number] 23:58:00Interface, External Ris In - 11/13/2018 12:00 AM CDTFINAL REPORT Chest, two views. MEDICAL HISTORY: Cough. COMPARISON STUDY: November 05, 2018. FINDINGS: The cardiac silhouette is unremarkable. There are bilateral mild increased interstitial markings. A right-sided central line is noted. There is no pleural effusion or pneumothorax. Degenerative changes are seen. IMPRESSION: Mild interstitial pulmonary markings. This may represent mild volume overload. Signed: Andrew Sloan MDReport Verified Date/Time: 11/12/2018 23:58:30 Readi ng Location: [facility] B1 C013W Consult Reading Room [facility] [id number] 04:58:00* Test Item Value Reference Range Interpretation Comments TOTAL PROTEIN (BEAKER) (test code = 770) 5.8 gm/dL 6.0-8.3 L ALBUMIN (BEAKER) (test code = 1145) 3.4 g/dL 3.5-5.0 L BILIRUBIN TOTAL (BEAKER) (test code = 377) 46.8 mg/dL 0.2-1.2 H BILIRUBIN DIRECT (BEAKER) (test code = 706) 30.8 mg/dL 0.1-0.5 H ALKALINE PHOSPHATASE (BEAKER) (test code = 346) 139 U/L 40-150 AST (SGOT) (BEAKER) (test code = 353) 184 U/L 5-34 H ALT (SGPT) (BEAKER) (test code = 347) 75 U/L 6-55 H Specimen markedly ictericBASIC METABOLIC [id number] 04:50:00* Test Item Value Reference Range Interpretation Comments SODIUM (BEAKER) (test code = 381) 136 meq/L 136-145 POTASSIUM (BEAKER) (test code = 379) 3.9 meq/L 3.5-5.1 CHLORIDE (BEAKER) (test code = 382) 99 meq/L 98-107 CO2 (BEAKER) (test code = 355) 25 meq/L 22-29 BLOOD UREA NITROGEN (BEAKER) (test code = 354) 12 mg/dL 7-21 CREATININE (BEAKER) (test code = 358) 2.24 mg/dL 0.57-1.25 H GLUCOSE RANDOM (BEAKER) (test code = 652) 120 mg/dL 70-105 H CALCIUM (BEAKER) (test code = 697) 8.8 mg/dL 8.4-10.2 EGFR (BEAKER) (test code = 1092) 33 mL/min/1.73 sq m ESTIMATED GFR IS NOT ACCURATE CREATININE CLEARANCE IN PREDICTING GLOMERULAR FILTRATION RATE. ESTIMATED GFR IS NOT APPLICABLE FOR DIALYSIS PATIENTS. Specimen markedly ictericCBC W/PLT COUNT & AUTO [id number] 04:33:00 * Test Item Value Reference Range Interpretation Comments WHITE BLOOD CELL COUNT (BEAKER) (test code = 775) 19.8 K/ L 3.5- 10.5 H RED BLOOD CELL COUNT (BEAKER) (test code = 761) 2.15 M/ L 4.63-6 .08 L HEMOGLOBIN (BEAKER) (test code = 410) 7.3 GM/DL 13.7-17.5 L HEMATOCRIT (BEAKER) (test code = 411) 21.7 % 40.1-51.0 L MEAN CORPUSCULAR VOLUME (BEAKER) (test code = 753) 100.9 fL 79. 0-92.2 H MEAN CORPUSCULAR HEMOGLOBIN (BEAKER) (test code = 751) 34.0 pg 25.7-32.2 H MEAN CORPUSCULAR HEMOGLOBIN CONC (BEAKER) (test code = 752) 33.6 GM/DL 32.3-36.5 RED CELL DISTRIBUTION WIDTH (BEAKER) (test code = 412) 17.7 % 11.6-14.4 H PLATELET COUNT (BEAKER) (test code = 756) 62 K/CU MM 150-450 L MEAN PLATELET VOLUME (BEAKER) (test code = 754) 11.3 fL 9.4-12 .4 NUCLEATED RED BLOOD CELLS (BEAKER) (test code = 413) 0 /100 WBC 0 -0 NEUTROPHILS RELATIVE PERCENT (BEAKER) (test code = 429) 79 % LYMPHOCYTES RELATIVE PERCENT (BEAKER) (test code = 430) 5 % MONOCYTES RELATIVE PERCENT (BEAKER) (test code = 431) 11 % EOSINOPHILS RELATIVE PERCENT (BEAKER) (test code = 432) 4 % BASOPHILS RELATIVE PERCENT (BEAKER) (test code = 437) 0 % NEUTROPHILS ABSOLUTE COUNT (BEAKER) (test code = 670) 15.59 K/ L 1.78-5.38 H LYMPHOCYTES ABSOLUTE COUNT (BEAKER) (test code = 414) 0.94 K/ L 1.32-3.57 L MONOCYTES ABSOLUTE COUNT (BEAKER) (test code = 415) 2.10 K/ L 0. 30-0.82 H EOSINOPHILS ABSOLUTE COUNT (BEAKER) (test code = 416) 0.85 K/ L 0.04-0.54 H BASOPHILS ABSOLUTE COUNT (BEAKER) (test code = 417) 0.05 K/ L 0. 01-0.08 IMMATURE GRANULOCYTES-RELATIVE PERCENT (BEAKER) (test code = 2801) 1 % 0-1 PROTHROMBIN TIME/[id number] 04:25:00* Test Item Value Reference Range Interpretation Comments PROTIME (BEAKER) (test code = 759) 19.8 seconds 11.9-14.2 H INR (BEAKER) (test code = 370) 1.8 <=5.9 Effective 07/24/2018: PT Reference Range ChangeNew: 11.9-14.2 Previous: 11.7-14. 7RECOMMENDED COUMADIN/WARFARIN INR THERAPY RANGESSTANDARD DOSE: 2.0-3.0 Include s: PROPHYLAXIS for venous thrombosis, systemic embolization; TREATMENT for venou s thrombosis and/or pulmonary embolus.HIGH RISK: Target INR is 2.5-3.5 for patie nts wiht mechanical heart valves.Creatinine, random [id number] 03:53:00* Test Item Value Reference Range Interpretation Comments Creatinine, Ur (test code = 2161-8) 225.8 mg/dL PHILLIP (test code = PHILLIP) Reference Range: No Normals [facility]CREAT[facility] [id number] 03:53:00* Test Item Value Reference Range Interpretation Comments CREATININE URINE (BEAKER) (test code = 375) 225.8 mg/dL Reference Range: No NormalsProtein, random [id number] 03:50:00* Test Item Value Reference Range Interpretation Comments Protein, Urine (test code = 2888-6) 122 mg/dL 0-14 H Lab Interpretation (test code = 87604-9) Abnormal [facility]PR[facility] RANDOM [id number] 03:50:00* Test Item Value Reference Range Interpretation Comments PROTEIN, URINE (BEAKER) (test code = 1569) 122 mg/dL 0-14 H CBC W/PLT COUNT & AUTO [id number] 08:10:00* Test Item Value Reference Range Interpretation Comments WHITE BLOOD CELL COUNT (BEAKER) (test code = 775) 17.9 K/ L 3.5- 10.5 H RED BLOOD CELL COUNT (BEAKER) (test code = 761) 2.18 M/ L 4.63-6 .08 L HEMOGLOBIN (BEAKER) (test code = 410) 7.4 GM/DL 13.7-17.5 L HEMATOCRIT (BEAKER) (test code = 411) 21.9 % 40.1-51.0 L MEAN CORPUSCULAR VOLUME (BEAKER) (test code = 753) 100.5 fL 79. 0-92.2 H MEAN CORPUSCULAR HEMOGLOBIN (BEAKER) (test code = 751) 33.9 pg 25.7-32.2 H MEAN CORPUSCULAR HEMOGLOBIN CONC (BEAKER) (test code = 752) 33.8 GM/DL 32.3-36.5 RED CELL DISTRIBUTION WIDTH (BEAKER) (test code = 412) 17.6 % 11.6-14.4 H PLATELET COUNT (BEAKER) (test code = 756) 76 K/CU MM 150-450 L MEAN PLATELET VOLUME (BEAKER) (test code = 754) 11.5 fL 9.4-12 .4 NUCLEATED RED BLOOD CELLS (BEAKER) (test code = 413) 0 /100 WBC 0 -0 (CELLAVISION MANUAL DIFF)2018-11-11 08:10:00* Test Item Value Reference Range Interpretation Comments NEUTROPHILS - REL (CELLAVISION)(BEAKER) (test code = 2816) 83 % LYMPHOCYTES - REL (CELLAVISION)(BEAKER) (test code = 2817) 5 % MONOCYTES - REL (CELLAVISION)(BEAKER) (test code = 2818) 6 % EOSINOPHILS - REL (CELLAVISION)(BEAKER) (test code = 2819) 6 % NEUTROPHILS - ABS (CELLAVISION)(BEAKER) (test code = 2830) 14.86 K/ul 1.78-5.38 H LYMPHOCYTES - ABS (CELLAVISION)(BEAKER) (test code = 2831) 0.90 K/ul 1.32-3.57 L MONOCYTES - ABS (CELLAVISION)(BEAKER) (test code = 2832) 1.07 K/uL 0.30-0.82 H EOSINOPHILS - ABS (CELLAVISION)(BEAKER) (test code = 2834) 1.07 K/uL 0.04-0.54 H TOTAL COUNTED (BEAKER) (test code = 1351) 100 PLT MORPHOLOGY (BEAKER) (test code = 486) Normal VACUOLATED NEUTROPHILS (BEAKER) (test code = 483) Present ANISOCYTOSIS (BEAKER) (test code = 961) 1+ few MACROCYTES (BEAKER) (test code = 964) 1+ few POIKILOCYTES (BEAKER) (test code = 966) 2+ moderate ALL CELLS (BEAKER) (test code = 474) 1+ few BASOPHILIC STIPPLING (BEAKER) (test code = 473) Present ARTIFACT (CELLAVISION)(BEAKER) (test code = 3432) Present PLATELET CONCENTRATION (CELLAVISION)(BEAKER) (test code = 3438) Dec reased Received comment: User comments: Slide comments: HEPATIC FUNCTION PANEL 2018-11-11 06:33:00* Test Item Value Reference Range Interpretation Comments TOTAL PROTEIN (BEAKER) (test code = 770) 5.8 gm/dL 6.0-8.3 L ALBUMIN (BEAKER) (test code = 1145) 3.4 g/dL 3.5-5.0 L BILIRUBIN TOTAL (BEAKER) (test code = 377) 45.2 mg/dL 0.2-1.2 H BILIRUBIN DIRECT (BEAKER) (test code = 706) 31.3 mg/dL 0.1-0.5 H ALKALINE PHOSPHATASE (BEAKER) (test code = 346) 153 U/L 40-150 H AST (SGOT) (BEAKER) (test code = 353) 192 U/L 5-34 H ALT (SGPT) (BEAKER) (test code = 347) 86 U/L 6-55 H Specimen markedly ictericBASIC METABOLIC [id number] 06:17:00* Test Item Value Reference Range Interpretation Comments SODIUM (BEAKER) (test code = 381) 136 meq/L 136-145 POTASSIUM (BEAKER) (test code = 379) 4.0 meq/L 3.5-5.1 CHLORIDE (BEAKER) (test code = 382) 100 meq/L 98-107 CO2 (BEAKER) (test code = 355) 25 meq/L 22-29 BLOOD UREA NITROGEN (BEAKER) (test code = 354) 21 mg/dL 7-21 CREATININE (BEAKER) (test code = 358) 2.57 mg/dL 0.57-1.25 H GLUCOSE RANDOM (BEAKER) (test code = 652) 155 mg/dL 70-105 H CALCIUM (BEAKER) (test code = 697) 9.1 mg/dL 8.4-10.2 EGFR (BEAKER) (test code = 1092) 28 mL/min/1.73 sq m ESTIMATED GFR IS NOT ACCURATE CREATININE CLEARANCE IN PREDICTING GLOMERULAR FILTRATION RATE. ESTIMATED GFR IS NOT APPLICABLE FOR DIALYSIS PATIENTS. Specimen markedly ictericPROTHROMBIN TIME/[id number] 05:07:00* Test Item Value Reference Range Interpretation Comments PROTIME (BEAKER) (test code = 759) 20.0 seconds 11.9-14.2 H INR (BEAKER) (test code = 370) 1.8 <=5.9 Effective 07/24/2018: PT Reference Range ChangeNew: 11.9-14.2 Previous: 11.7-14. 7RECOMMENDED COUMADIN/WARFARIN INR THERAPY RANGESSTANDARD DOSE: 2.0-3.0 Include s: PROPHYLAXIS for venous thrombosis, systemic embolization; TREATMENT for venou s thrombosis and/or pulmonary embolus.HIGH RISK: Target INR is 2.5-3.5 for patie nts wiht mechanical heart valves.HEPATIC FUNCTION [id number] 06:03:00* Test Item Value Reference Range Interpretation Comments TOTAL PROTEIN (BEAKER) (test code = 770) 6.0 gm/dL 6.0-8.3 ALBUMIN (BEAKER) (test code = 1145) 3.5 g/dL 3.5-5.0 BILIRUBIN TOTAL (BEAKER) (test code = 377) 47.3 mg/dL 0.2-1.2 H BILIRUBIN DIRECT (BEAKER) (test code = 706) 32.0 mg/dL 0.1-0.5 H ALKALINE PHOSPHATASE (BEAKER) (test code = 346) 139 U/L 40-150 AST (SGOT) (BEAKER) (test code = 353) 218 U/L 5-34 H ALT (SGPT) (BEAKER) (test code = 347) 93 U/L 6-55 H Specimen markedly ictericBASIC METABOLIC [id number] 05:52:00* Test Item Value Reference Range Interpretation Comments SODIUM (BEAKER) (test code = 381) 137 meq/L 136-145 POTASSIUM (BEAKER) (test code = 379) 3.7 meq/L 3.5-5.1 CHLORIDE (BEAKER) (test code = 382) 99 meq/L 98-107 CO2 (BEAKER) (test code = 355) 26 meq/L 22-29 BLOOD UREA NITROGEN (BEAKER) (test code = 354) 15 mg/dL 7-21 CREATININE (BEAKER) (test code = 358) 2.08 mg/dL 0.57-1.25 H GLUCOSE RANDOM (BEAKER) (test code = 652) 113 mg/dL 70-105 H CALCIUM (BEAKER) (test code = 697) 9.1 mg/dL 8.4-10.2 EGFR (BEAKER) (test code = 1092) 36 mL/min/1.73 sq m ESTIMATED GFR IS NOT ACCURATE CREATININE CLEARANCE IN PREDICTING GLOMERULAR FILTRATION RATE. ESTIMATED GFR IS NOT APPLICABLE FOR DIALYSIS PATIENTS. Specimen markedly ictericCBC W/PLT COUNT & AUTO [id number] 05:17:00 * Test Item Value Reference Range Interpretation Comments WHITE BLOOD CELL COUNT (BEAKER) (test code = 775) 18.6 K/ L 3.5- 10.5 H RED BLOOD CELL COUNT (BEAKER) (test code = 761) 2.25 M/ L 4.63-6 .08 L HEMOGLOBIN (BEAKER) (test code = 410) 7.9 GM/DL 13.7-17.5 L HEMATOCRIT (BEAKER) (test code = 411) 22.5 % 40.1-51.0 L MEAN CORPUSCULAR VOLUME (BEAKER) (test code = 753) 100.0 fL 79. 0-92.2 H MEAN CORPUSCULAR HEMOGLOBIN (BEAKER) (test code = 751) 35.1 pg 25.7-32.2 H MEAN CORPUSCULAR HEMOGLOBIN CONC (BEAKER) (test code = 752) 35.1 GM/DL 32.3-36.5 RED CELL DISTRIBUTION WIDTH (BEAKER) (test code = 412) 18.2 % 11.6-14.4 H PLATELET COUNT (BEAKER) (test code = 756) 69 K/CU MM 150-450 L MEAN PLATELET VOLUME (BEAKER) (test code = 754) 11.3 fL 9.4-12 .4 NUCLEATED RED BLOOD CELLS (BEAKER) (test code = 413) 0 /100 WBC 0 -0 NEUTROPHILS RELATIVE PERCENT (BEAKER) (test code = 429) 74 % LYMPHOCYTES RELATIVE PERCENT (BEAKER) (test code = 430) 7 % MONOCYTES RELATIVE PERCENT (BEAKER) (test code = 431) 10 % EOSINOPHILS RELATIVE PERCENT (BEAKER) (test code = 432) 8 % BASOPHILS RELATIVE PERCENT (BEAKER) (test code = 437) 0 % NEUTROPHILS ABSOLUTE COUNT (BEAKER) (test code = 670) 13.84 K/ L 1.78-5.38 H LYMPHOCYTES ABSOLUTE COUNT (BEAKER) (test code = 414) 1.22 K/ L 1.32-3.57 L MONOCYTES ABSOLUTE COUNT (BEAKER) (test code = 415) 1.78 K/ L 0. 30-0.82 H EOSINOPHILS ABSOLUTE COUNT (BEAKER) (test code = 416) 1.45 K/ L 0.04-0.54 H BASOPHILS ABSOLUTE COUNT (BEAKER) (test code = 417) 0.05 K/ L 0. 01-0.08 IMMATURE GRANULOCYTES-RELATIVE PERCENT (BEAKER) (test code = 2801) 1 % 0-1 PROTHROMBIN TIME/[id number] 05:07:00* Test Item Value Reference Range Interpretation Comments PROTIME (BEAKER) (test code = 759) 20.8 seconds 11.9-14.2 H INR (BEAKER) (test code = 370) 1.9 <=5.9 Effective 07/24/2018: PT Reference Range ChangeNew: 11.9-14.2 Previous: 11.7-14. 7RECOMMENDED COUMADIN/WARFARIN INR THERAPY RANGESSTANDARD DOSE: 2.0-3.0 Include s: PROPHYLAXIS for venous thrombosis, systemic embolization; TREATMENT for venou s thrombosis and/or pulmonary embolus.HIGH RISK: Target INR is 2.5-3.5 for patie nts wiht mechanical heart valves.BLOOD [id number] 02:01:00* Test Item Value Reference Range Interpretation Comments CULTURE (BEAKER) (test code = 1095) No growth in 5 days BLOOD [id number] 02:01:00* Test Item Value Reference Range Interpretation Comments CULTURE (BEAKER) (test code = 1095) No growth in 5 days URINALYSIS W/ REFLEX URINE [id number] 00:30:00* Test Item Value Reference Range Interpretation Comments COLOR (BEAKER) (test code = 470) Brown CLARITY (BEAKER) (test code = 469) Hazy SPECIFIC GRAVITY UA (BEAKER) (test code = 468) 1.018 1.001-1 .035 PH UA (BEAKER) (test code = 467) 6.0 5.0-8.0 PROTEIN UA (BEAKER) (test code = 464) 50 mg/dL Negative A GLUCOSE UA (BEAKER) (test code = 365) Negative Negative KETONES UA (BEAKER) (test code = 371) Negative Negative BILIRUBIN UA (BEAKER) (test code = 462) Positive Negative A BLOOD UA (BEAKER) (test code = 461) Small Negative A NITRITE UA (BEAKER) (test code = 465) Negative Negative LEUKOCYTE ESTERASE UA (BEAKER) (test code = 466) Trace Negat mumtaz A UROBILINOGEN UA (BEAKER) (test code = 463) 4.0 mg/dL 0.2-1.0 H RBC UA (BEAKER) (test code = 519) 5 /HPF WBC UA (BEAKER) (test code = 520) 6 /HPF BACTERIA (BEAKER) (test code = 517) Occasional MUCUS (BEAKER) (test code = 1574) Occasional SQUAMOUS EPITHELIAL (BEAKER) (test code = 516) 4 /HPF HYALINE CASTS (BEAKER) (test code = 514) 42 /LPF SOURCE(BEAKER) (test code = 2795) HEMODIALYSIS [id number] 15:25:00Melissa Lo RN 11/09/2018 4:53 PMProcedure fairly tolerated. Received Mann[place] 12.5 gms. X 1 dose to support blood pressure. Vital signs maintained within desired parameter during the procedure.HD duration 4 hours UF 1.7 L via right IJ non-tunneled HD [...] Temp: 98.3 F (36.8 C) SpO2: 95% [facility]* Test Item Value Reference Range Interpretation Comments PHOSPHORUS (BEAKER) (test code = 604) 2.3 mg/dL 2.3-4.7 HEPATIC FUNCTION [id number] 04:57:00* Test Item Value Reference Range Interpretation Comments TOTAL PROTEIN (BEAKER) (test code = 770) 6.1 gm/dL 6.0-8.3 ALBUMIN (BEAKER) (test code = 1145) 3.6 g/dL 3.5-5.0 BILIRUBIN TOTAL (BEAKER) (test code = 377) 48.0 mg/dL 0.2-1.2 H BILIRUBIN DIRECT (BEAKER) (test code = 706) 32.4 mg/dL 0.1-0.5 H ALKALINE PHOSPHATASE (BEAKER) (test code = 346) 137 U/L 40-150 AST (SGOT) (BEAKER) (test code = 353) 255 U/L 5-34 H ALT (SGPT) (BEAKER) (test code = 347) 96 U/L 6-55 H Specimen markedly ictericCBC W/PLT COUNT & AUTO [id number] 04:42:00 * Test Item Value Reference Range Interpretation Comments WHITE BLOOD CELL COUNT (BEAKER) (test code = 775) 24.5 K/ L 3.5- 10.5 H RED BLOOD CELL COUNT (BEAKER) (test code = 761) 2.42 M/ L 4.63-6 .08 L HEMOGLOBIN (BEAKER) (test code = 410) 8.3 GM/DL 13.7-17.5 L HEMATOCRIT (BEAKER) (test code = 411) 24.2 % 40.1-51.0 L MEAN CORPUSCULAR VOLUME (BEAKER) (test code = 753) 100.0 fL 79. 0-92.2 H MEAN CORPUSCULAR HEMOGLOBIN (BEAKER) (test code = 751) 34.3 pg 25.7-32.2 H MEAN CORPUSCULAR HEMOGLOBIN CONC (BEAKER) (test code = 752) 34.3 GM/DL 32.3-36.5 RED CELL DISTRIBUTION WIDTH (BEAKER) (test code = 412) 18.4 % 11.6-14.4 H PLATELET COUNT (BEAKER) (test code = 756) 74 K/CU MM 150-450 L MEAN PLATELET VOLUME (BEAKER) (test code = 754) 10.8 fL 9.4-12 .4 NUCLEATED RED BLOOD CELLS (BEAKER) (test code = 413) 0 /100 WBC 0 -0 NEUTROPHILS RELATIVE PERCENT (BEAKER) (test code = 429) 81 % LYMPHOCYTES RELATIVE PERCENT (BEAKER) (test code = 430) 4 % MONOCYTES RELATIVE PERCENT (BEAKER) (test code = 431) 8 % EOSINOPHILS RELATIVE PERCENT (BEAKER) (test code = 432) 6 % BASOPHILS RELATIVE PERCENT (BEAKER) (test code = 437) 0 % NEUTROPHILS ABSOLUTE COUNT (BEAKER) (test code = 670) 19.86 K/ L 1.78-5.38 H LYMPHOCYTES ABSOLUTE COUNT (BEAKER) (test code = 414) 0.89 K/ L 1.32-3.57 L MONOCYTES ABSOLUTE COUNT (BEAKER) (test code = 415) 1.84 K/ L 0. 30-0.82 H EOSINOPHILS ABSOLUTE COUNT (BEAKER) (test code = 416) 1.48 K/ L 0.04-0.54 H BASOPHILS ABSOLUTE COUNT (BEAKER) (test code = 417) 0.06 K/ L 0. 01-0.08 IMMATURE GRANULOCYTES-RELATIVE PERCENT (BEAKER) (test code = 2801) 2 % 0-1 H BASIC METABOLIC [id number] 04:41:00* Test Item Value Reference Range Interpretation Comments SODIUM (BEAKER) (test code = 381) 137 meq/L 136-145 POTASSIUM (BEAKER) (test code = 379) 4.1 meq/L 3.5-5.1 CHLORIDE (BEAKER) (test code = 382) 101 meq/L 98-107 CO2 (BEAKER) (test code = 355) 25 meq/L 22-29 BLOOD UREA NITROGEN (BEAKER) (test code = 354) 24 mg/dL 7-21 H CREATININE (BEAKER) (test code = 358) 2.18 mg/dL 0.57-1.25 H GLUCOSE RANDOM (BEAKER) (test code = 652) 140 mg/dL 70-105 H CALCIUM (BEAKER) (test code = 697) 9.2 mg/dL 8.4-10.2 EGFR (BEAKER) (test code = 1092) 34 mL/min/1.73 sq m ESTIMATED GFR IS NOT ACCURATE CREATININE CLEARANCE IN PREDICTING GLOMERULAR FILTRATION RATE. ESTIMATED GFR IS NOT APPLICABLE FOR DIALYSIS PATIENTS. Specimen markedly ictericPROTHROMBIN TIME/[id number] 04:34:00* Test Item Value Reference Range Interpretation Comments PROTIME (BEAKER) (test code = 759) 20.2 seconds 11.9-14.2 H INR (BEAKER) (test code = 370) 1.8 <=5.9 Effective 07/24/2018: PT Reference Range ChangeNew: 11.9-14.2 Previous: 11.7-14. 7RECOMMENDED COUMADIN/WARFARIN INR THERAPY RANGESSTANDARD DOSE: 2.0-3.0 Include s: PROPHYLAXIS for venous thrombosis, systemic embolization; TREATMENT for venou s thrombosis and/or pulmonary embolus.HIGH RISK: Target INR is 2.5-3.5 for patie nts wiht mechanical heart valves.HEPATIC FUNCTION [id number] 17:22:00* Test Item Value Reference Range Interpretation Comments TOTAL PROTEIN (BEAKER) (test code = 770) 5.5 gm/dL 6.0-8.3 L ALBUMIN (BEAKER) (test code = 1145) 3.3 g/dL 3.5-5.0 L BILIRUBIN TOTAL (BEAKER) (test code = 377) 42.0 mg/dL 0.2-1.2 H BILIRUBIN DIRECT (BEAKER) (test code = 706) 28.7 mg/dL 0.1-0.5 H This is a corrected result. Previous result was >15.0 mg/dL on 11/08/2018 at 0616 CDT ALKALINE PHOSPHATASE (BEAKER) (test code = 346) 131 U/L 40-150 AST (SGOT) (BEAKER) (test code = 353) 177 U/L 5-34 H ALT (SGPT) (BEAKER) (test code = 347) 78 U/L 6-55 H Specimen markedly icteric; notified #[id number] of correctionCandida antigen with reflex to [id number] 11:29:00* Test Item Value Reference Range Interpretation Comments Yari Antigen (test code = 12645-4) [facility] [id number] 11:29:00* Test Item Value Reference Range Interpretation Comments Yari Antigen Titer (test code = 9501-8) 1:2 [facility] WITH REFLEX TO [id number] 11:29:00* Test Item Value Reference Range Interpretation Comments YARI ANTIGEN (BEAKER) (test code = 1782) Positive YARI ANTIGEN [id number] 11:29:00* Test Item Value Reference Range Interpretation Comments YARI ANTIGEN TITER (BEAKER) (test code = 737) :2 CT, CHEST, WITH HIGH RESOLUTION, INTERSTITAL LUNG [id number] 11:29:00 Reason for exam:->liver transplant evaluationFINAL REPORT CT of the chest, without contrast Clinical History: liver transplant evaluationliver transplant evaluation. s/p ards Technique: CT of [...] findings likely reflect a resolving or organizing process , although cannot entirely exclude superimposed atypical infection, inflammation or drug reaction. Cirrhosis and splenomegaly. Small amount of ascites Signed: Gela [place] Verified Date/Time: 11/08/2018 11:29:31 Reading Location: [address] Consult Reading Room chest with high resolution/[id number] 11:29:00 Interface, External Ris In - 11/08/2018 11:31 AM CDTFINAL REPORT PATIENT ID: [id number] of the chest, without contrast Clinical History: liver transplant e valuationliver transplant evaluation. s/p ards Technique: CT of the chest is pe rformed without intravenous contrast administration. This exam was performed acc ording to our departmental dose optimization program which includes automated ex posure control, adjustment of the mA and/or kV according to patient's size and/o r use of iterative reconstructive technique. High resolution images of the lung are obtained during inspiration and expiration, in both supine and prone positio ns. Some opacities may be peribronchial vascular distribution. There is no pleu ral effusion. Mild degree of air trapping are seen in the lower lungs on expirat ory images. No evidence of honeycombing. Comparison Film: June 09, 2018 Discus karthik: Visualized thyroid gland is normal. No supraclavicular, axillary, mediasti nal or hilar lymphadenopathy. Heart and pericardium are unremarkable. There are patchy small foci of airspace opacities in both lungs, primarily groundglass in the upper lungs. Previously seen consolidative opacities in both lower lobes hav e significantly decreased. Some opacities may be peribronchial vascular distribu tion. No pleural effusion. No bronchiectasis, or bronchial wall thickening. Ther e is mild degree of air trapping in the lower lungs. No evidence of honeycombing . Liver appears cirrhotic. Spleen is enlarged. There is a small amount of ascite s in the upper abdomen. Osseous structures demonstrate no suspicious findings. I mpression: Small, patchy foci of airspace opacities in both lungs, overall signi ficantly improved compared to June 14, 2018. Given history of ARDS, these findi ngs likely reflect a resolving or organizing process, although cannot entirely e xclude superimposed atypical infection, inflammation or drug reaction. Cirrhosis and splenomegaly. Small amount of ascites Signed: Gela Rodriguezort Verified Da te/Time: 11/08/2018 11:29:31 Reading Location: [address] Ortho Consult Readi [facility], [id number] 08:24:00FINAL REPORT MRI of the abdomen. CLINICAL HISTORY: liver transplant evaluation. COMPARISON STUDY: CTA dated June 25, [address] scan of the abdomen and pelvis dated June 14, 2018. Technique: Multiplanar, multisequence imaging of the abdomen was acquired both pre and post administration of intr avenous gadolinium in a dynamic fashion. No oral contrast was administered. FIND INGS: No pleural effusion is seen. The liver is fatty infiltrated and mildly het erogeneous in appearance. Post administration of intravenous gadolinium in a dyn amic fashion, there is heterogeneous enhancement but no focal masses. The main p ortal vein is widely patent measuring 1.4 cm. Sludge is seen within the gallblad jose with no biliary dilatation. The spleen is enlarged measuring 15.9 cm in AP d iameter. The pancreas, adrenal glands and kidneys are unremarkable. There are no dilated loops of bowel seen to suggest obstruction. Mild ascites is seen. The a wilma is normal in caliber. Prominent upper abdominal lymph nodes are seen measur ing up to 1.3 cm in short axis in the portocaval region. The visualized osseous structures are unremarkable. IMPRESSION:1. Fatty infiltration of the liver with no focal masses.2. Splenomegaly and mild ascites.3. Gallbladder sludge.4. Promin ent upper abdominal lymph nodes, likely reactive. Signed: Andrew Sloanepo rt Verified Date/Time: 11/08/2018 08:24:53 Reading Location: [facility] Reading Room - [place] [address] [address] [id number] 07:36:00* Test Item Value Reference Range Interpretation Comments CULTURE (BEAKER) (test code = 1095) No growth BASIC METABOLIC [id number] 06:13:00* Test Item Value Reference Range Interpretation Comments SODIUM (BEAKER) (test code = 381) 136 meq/L 136-145 POTASSIUM (BEAKER) (test code = 379) 4.8 meq/L 3.5-5.1 CHLORIDE (BEAKER) (test code = 382) 105 meq/L 98-107 CO2 (BEAKER) (test code = 355) 23 meq/L 22-29 BLOOD UREA NITROGEN (BEAKER) (test code = 354) 37 mg/dL 7-21 H CREATININE (BEAKER) (test code = 358) 2.78 mg/dL 0.57-1.25 H GLUCOSE RANDOM (BEAKER) (test code = 652) 99 mg/dL 70-105 CALCIUM (BEAKER) (test code = 697) 9.0 mg/dL 8.4-10.2 EGFR (BEAKER) (test code = 1092) 26 mL/min/1.73 sq m ESTIMATED GFR IS NOT ACCURATE CREATININE CLEARANCE IN PREDICTING GLOMERULAR FILTRATION RATE. ESTIMATED GFR IS NOT APPLICABLE FOR DIALYSIS PATIENTS. Specimen markedly [id number] 06:07:00* Test Item Value Reference Range Interpretation Comments PHOSPHORUS (BEAKER) (test code = 604) 2.8 mg/dL 2.3-4.7 [id number] 06:07:00* Test Item Value Reference Range Interpretation Comments MAGNESIUM (BEAKER) (test code = 627) 2.2 mg/dL 1.6-2.6 PROTHROMBIN TIME/[id number] 05:21:00* Test Item Value Reference Range Interpretation Comments PROTIME (BEAKER) (test code = 759) 21.2 seconds 11.9-14.2 H INR (BEAKER) (test code = 370) 2.0 <=5.9 Effective 07/24/2018: PT Reference Range ChangeNew: 11.9-14.2 Previous: 11.7-14. 7RECOMMENDED COUMADIN/WARFARIN INR THERAPY RANGESSTANDARD DOSE: 2.0-3.0 Include s: PROPHYLAXIS for venous thrombosis, systemic embolization; TREATMENT for venou s thrombosis and/or pulmonary embolus.HIGH RISK: Target INR is 2.5-3.5 for patie nts wiht mechanical heart valves.CBC W/PLT COUNT & AUTO [id number] 05:03:00* Test Item Value Reference Range Interpretation Comments WHITE BLOOD CELL COUNT (BEAKER) (test code = 775) 20.6 K/ L 3.5- 10.5 H RED BLOOD CELL COUNT (BEAKER) (test code = 761) 1.82 M/ L 4.63-6 .08 L HEMOGLOBIN (BEAKER) (test code = 410) 6.3 GM/DL 13.7-17.5 L HEMATOCRIT (BEAKER) (test code = 411) 19.1 % 40.1-51.0 L MEAN CORPUSCULAR VOLUME (BEAKER) (test code = 753) 104.9 fL 79. 0-92.2 H MEAN CORPUSCULAR HEMOGLOBIN (BEAKER) (test code = 751) 34.6 pg 25.7-32.2 H MEAN CORPUSCULAR HEMOGLOBIN CONC (BEAKER) (test code = 752) 33.0 GM/DL 32.3-36.5 RED CELL DISTRIBUTION WIDTH (BEAKER) (test code = 412) 15.9 % 11.6-14.4 H PLATELET COUNT (BEAKER) (test code = 756) 89 K/CU MM 150-450 L MEAN PLATELET VOLUME (BEAKER) (test code = 754) 10.9 fL 9.4-12 .4 NUCLEATED RED BLOOD CELLS (BEAKER) (test code = 413) 0 /100 WBC 0 -0 NEUTROPHILS RELATIVE PERCENT (BEAKER) (test code = 429) 79 % LYMPHOCYTES RELATIVE PERCENT (BEAKER) (test code = 430) 5 % MONOCYTES RELATIVE PERCENT (BEAKER) (test code = 431) 6 % EOSINOPHILS RELATIVE PERCENT (BEAKER) (test code = 432) 8 % BASOPHILS RELATIVE PERCENT (BEAKER) (test code = 437) 0 % NEUTROPHILS ABSOLUTE COUNT (BEAKER) (test code = 670) 16.27 K/ L 1.78-5.38 H LYMPHOCYTES ABSOLUTE COUNT (BEAKER) (test code = 414) 1.02 K/ L 1.32-3.57 L MONOCYTES ABSOLUTE COUNT (BEAKER) (test code = 415) 1.28 K/ L 0. 30-0.82 H EOSINOPHILS ABSOLUTE COUNT (BEAKER) (test code = 416) 1.71 K/ L 0.04-0.54 H BASOPHILS ABSOLUTE COUNT (BEAKER) (test code = 417) 0.04 K/ L 0. 01-0.08 IMMATURE GRANULOCYTES-RELATIVE PERCENT (BEAKER) (test code = 2801) 1 % 0-1 CBC W/PLT COUNT & AUTO [id number] 13:51:00* Test Item Value Reference Range Interpretation Comments WHITE BLOOD CELL COUNT (BEAKER) (test code = 775) 25.2 K/ L 3.5- 10.5 H RED BLOOD CELL COUNT (BEAKER) (test code = 761) 1.99 M/ L 4.63-6 .08 L HEMOGLOBIN (BEAKER) (test code = 410) 7.0 GM/DL 13.7-17.5 L HEMATOCRIT (BEAKER) (test code = 411) 21.0 % 40.1-51.0 L MEAN CORPUSCULAR VOLUME (BEAKER) (test code = 753) 105.5 fL 79. 0-92.2 H MEAN CORPUSCULAR HEMOGLOBIN (BEAKER) (test code = 751) 35.2 pg 25.7-32.2 H MEAN CORPUSCULAR HEMOGLOBIN CONC (BEAKER) (test code = 752) 33.3 GM/DL 32.3-36.5 RED CELL DISTRIBUTION WIDTH (BEAKER) (test code = 412) 16.4 % 11.6-14.4 H PLATELET COUNT (BEAKER) (test code = 756) 93 K/CU MM 150-450 L MEAN PLATELET VOLUME (BEAKER) (test code = 754) 10.6 fL 9.4-12 .4 NUCLEATED RED BLOOD CELLS (BEAKER) (test code = 413) 0 /100 WBC 0 -0 (CELLAVISION MANUAL DIFF)2018-11-07 13:51:00* Test Item Value Reference Range Interpretation Comments NEUTROPHILS - REL (CELLAVISION)(BEAKER) (test code = 2816) 84 % LYMPHOCYTES - REL (CELLAVISION)(BEAKER) (test code = 2817) 3 % MONOCYTES - REL (CELLAVISION)(BEAKER) (test code = 2818) 6 % EOSINOPHILS - REL (CELLAVISION)(BEAKER) (test code = 2819) 6 % MYELOCYTES - REL (CELLAVISION)(BEAKER) (test code = 2822) 1 % 0-0 H NEUTROPHILS - ABS (CELLAVISION)(BEAKER) (test code = 2830) 21.17 K/ul 1.78-5.38 H LYMPHOCYTES - ABS (CELLAVISION)(BEAKER) (test code = 2831) 0.76 K/ul 1.32-3.57 L MONOCYTES - ABS (CELLAVISION)(BEAKER) (test code = 2832) 1.51 K/uL 0.30-0.82 H EOSINOPHILS - ABS (CELLAVISION)(BEAKER) (test code = 2834) 1.51 K/uL 0.04-0.54 H MYELOCYTES-ABS (CELLAVISION)(BEAKER) (test code = 2837) 0.25 K/uL 0.00-0.00 H TOTAL COUNTED (BEAKER) (test code = 1351) 100 WBC MORPHOLOGY (BEAKER) (test code = 487) Normal LARGE PLT(BEAKER) (test code = 2156) Present HYPOCHROMIA (BEAKER) (test code = 963) 1+ few ANISOCYTOSIS (BEAKER) (test code = 961) 1+ few MACROCYTES (BEAKER) (test code = 964) 1+ few POIKILOCYTES (BEAKER) (test code = 966) 3+ many ELLIPTOCYTES (BEAKER) (test code = 962) 1+ few OVALOCYTES (BEAKER) (test code = 477) 2+ moderate TEAR DROP CELLS (BEAKER) (test code = 481) 1+ few ALL CELLS (BEAKER) (test code = 474) 2+ moderate ARTIFACT (CELLAVISION)(BEAKER) (test code = 3432) Present PLATELET CONCENTRATION (CELLAVISION)(BEAKER) (test code = 3438) Dec reased Received comment: User comments: Slide comments: WBC: SEEGMENTED WIT TOXIC GRANU LATIONS PRESENT BASIC METABOLIC [id number] 07:53:00* Test Item Value Reference Range Interpretation Comments SODIUM (BEAKER) (test code = 381) 137 meq/L 136-145 POTASSIUM (BEAKER) (test code = 379) 3.9 meq/L 3.5-5.1 CHLORIDE (BEAKER) (test code = 382) 104 meq/L 98-107 CO2 (BEAKER) (test code = 355) 25 meq/L 22-29 BLOOD UREA NITROGEN (BEAKER) (test code = 354) 31 mg/dL 7-21 H CREATININE (BEAKER) (test code = 358) 2.52 mg/dL 0.57-1.25 H GLUCOSE RANDOM (BEAKER) (test code = 652) 184 mg/dL 70-105 H CALCIUM (BEAKER) (test code = 697) 9.0 mg/dL 8.4-10.2 EGFR (BEAKER) (test code = 1092) 29 mL/min/1.73 sq m ESTIMATED GFR IS NOT ACCURATE CREATININE CLEARANCE IN PREDICTING GLOMERULAR FILTRATION RATE. ESTIMATED GFR IS NOT APPLICABLE FOR DIALYSIS PATIENTS. Specimen markedly ictericHEPATIC FUNCTION [id number] 07:53:00* Test Item Value Reference Range Interpretation Comments TOTAL PROTEIN (BEAKER) (test code = 770) 5.7 gm/dL 6.0-8.3 L ALBUMIN (BEAKER) (test code = 1145) 3.3 g/dL 3.5-5.0 L BILIRUBIN TOTAL (BEAKER) (test code = 377) 41.9 mg/dL 0.2-1.2 H BILIRUBIN DIRECT (BEAKER) (test code = 706) 28.8 mg/dL 0.1-0.5 H ALKALINE PHOSPHATASE (BEAKER) (test code = 346) 141 U/L 40-150 AST (SGOT) (BEAKER) (test code = 353) 184 U/L 5-34 H ALT (SGPT) (BEAKER) (test code = 347) 80 U/L 6-55 H Specimen markedly ictericPROTHROMBIN TIME/[id number] 07:12:00* Test Item Value Reference Range Interpretation Comments PROTIME (BEAKER) (test code = 759) 21.8 seconds 11.9-14.2 H INR (BEAKER) (test code = 370) 2.0 <=5.9 Effective 07/24/2018: PT Reference Range ChangeNew: 11.9-14.2 Previous: 11.7-14. 7RECOMMENDED COUMADIN/WARFARIN INR THERAPY RANGESSTANDARD DOSE: 2.0-3.0 Include s: PROPHYLAXIS for venous thrombosis, systemic embolization; TREATMENT for venou s thrombosis and/or pulmonary embolus.HIGH RISK: Target INR is 2.5-3.5 for patie nts wiht mechanical heart valves.CBC W/PLT COUNT & AUTO [id number] 08:15:00* Test Item Value Reference Range Interpretation Comments WHITE BLOOD CELL COUNT (BEAKER) (test code = 775) 31.3 K/ L 3.5- 10.5 H RED BLOOD CELL COUNT (BEAKER) (test code = 761) 2.08 M/ L 4.63-6 .08 L HEMOGLOBIN (BEAKER) (test code = 410) 7.4 GM/DL 13.7-17.5 L HEMATOCRIT (BEAKER) (test code = 411) 21.8 % 40.1-51.0 L MEAN CORPUSCULAR VOLUME (BEAKER) (test code = 753) 104.8 fL 79. 0-92.2 H MEAN CORPUSCULAR HEMOGLOBIN (BEAKER) (test code = 751) 35.6 pg 25.7-32.2 H MEAN CORPUSCULAR HEMOGLOBIN CONC (BEAKER) (test code = 752) 33.9 GM/DL 32.3-36.5 RED CELL DISTRIBUTION WIDTH (BEAKER) (test code = 412) 16.9 % 11.6-14.4 H PLATELET COUNT (BEAKER) (test code = 756) 148 K/CU MM 150-450 L MEAN PLATELET VOLUME (BEAKER) (test code = 754) 10.6 fL 9.4-12 .4 NUCLEATED RED BLOOD CELLS (BEAKER) (test code = 413) 0 /100 WBC 0 -0 (CELLAVISION MANUAL DIFF)2018-11-06 08:15:00* Test Item Value Reference Range Interpretation Comments NEUTROPHILS - REL (CELLAVISION)(BEAKER) (test code = 2816) 89 % LYMPHOCYTES - REL (CELLAVISION)(BEAKER) (test code = 2817) 3 % MONOCYTES - REL (CELLAVISION)(BEAKER) (test code = 2818) 5 % EOSINOPHILS - REL (CELLAVISION)(BEAKER) (test code = 2819) 1 % BASOPHILS - REL (CELLAVISION)(BEAKER) (test code = 2820) 1 % MYELOCYTES - REL (CELLAVISION)(BEAKER) (test code = 2822) 1 % 0-0 H NEUTROPHILS - ABS (CELLAVISION)(BEAKER) (test code = 2830) 27.86 K/ul 1.78-5.38 H LYMPHOCYTES - ABS (CELLAVISION)(BEAKER) (test code = 2831) 0.94 K/ul 1.32-3.57 L MONOCYTES - ABS (CELLAVISION)(BEAKER) (test code = 2832) 1.57 K/uL 0.30-0.82 H EOSINOPHILS - ABS (CELLAVISION)(BEAKER) (test code = 2834) 0.31 K/uL 0.04-0.54 BASOPHILS - ABS (CELLAVISION)(BEAKER) (test code = 2835) 0.31 K/uL 0.01-0.08 H MYELOCYTES-ABS (CELLAVISION)(BEAKER) (test code = 2837) 0.31 K/uL 0.00-0.00 H TOTAL COUNTED (BEAKER) (test code = 1351) 100 SMUDGE CELLS (BEAKER) (test code = 1371) Present GIANT PLATELETS (BEAKER) (test code = 313) Present ANISOCYTOSIS (BEAKER) (test code = 961) 1+ few MACROCYTES (BEAKER) (test code = 964) 1+ few POIKILOCYTES (BEAKER) (test code = 966) 2+ moderate ALL CELLS (BEAKER) (test code = 474) 2+ moderate PLATELET CONCENTRATION (CELLAVISION)(BEAKER) (test code = 3438) Dec reased Received comment: User comments: Slide comments: HEPATIC FUNCTION PANEL 2018-11-06 04:58:00* Test Item Value Reference Range Interpretation Comments TOTAL PROTEIN (BEAKER) (test code = 770) 6.3 gm/dL 6.0-8.3 ALBUMIN (BEAKER) (test code = 1145) 3.7 g/dL 3.5-5.0 BILIRUBIN TOTAL (BEAKER) (test code = 377) 45.2 mg/dL 0.2-1.2 H BILIRUBIN DIRECT (BEAKER) (test code = 706) 30.2 mg/dL 0.1-0.5 H ALKALINE PHOSPHATASE (BEAKER) (test code = 346) 135 U/L 40-150 AST (SGOT) (BEAKER) (test code = 353) 224 U/L 5-34 H ALT (SGPT) (BEAKER) (test code = 347) 83 U/L 6-55 H Specimen markedly ictericBASIC METABOLIC [id number] 04:58:00* Test Item Value Reference Range Interpretation Comments SODIUM (BEAKER) (test code = 381) 138 meq/L 136-145 POTASSIUM (BEAKER) (test code = 379) 4.0 meq/L 3.5-5.1 CHLORIDE (BEAKER) (test code = 382) 104 meq/L 98-107 CO2 (BEAKER) (test code = 355) 21 meq/L 22-29 L BLOOD UREA NITROGEN (BEAKER) (test code = 354) 40 mg/dL 7-21 H CREATININE (BEAKER) (test code = 358) 3.22 mg/dL 0.57-1.25 H GLUCOSE RANDOM (BEAKER) (test code = 652) 114 mg/dL 70-105 H CALCIUM (BEAKER) (test code = 697) 9.2 mg/dL 8.4-10.2 EGFR (BEAKER) (test code = 1092) 22 mL/min/1.73 sq m ESTIMATED GFR IS NOT ACCURATE CREATININE CLEARANCE IN PREDICTING GLOMERULAR FILTRATION RATE. ESTIMATED GFR IS NOT APPLICABLE FOR DIALYSIS PATIENTS. Specimen markedly ictericPROTHROMBIN TIME/[id number] 04:37:00* Test Item Value Reference Range Interpretation Comments PROTIME (BEAKER) (test code = 759) 21.7 seconds 11.9-14.2 H INR (BEAKER) (test code = 370) 2.0 <=5.9 Effective 07/24/2018: PT Reference Range ChangeNew: 11.9-14.2 Previous: 11.7-14. 7RECOMMENDED COUMADIN/WARFARIN INR THERAPY RANGESSTANDARD DOSE: 2.0-3.0 Include s: PROPHYLAXIS for venous thrombosis, systemic embolization; TREATMENT for venou s thrombosis and/or pulmonary embolus.HIGH RISK: Target INR is 2.5-3.5 for patie nts wiht mechanical heart valves.Urinalysis w/[id number] 22:58:00* Test Item Value Reference Range Interpretation Comments Color, UA (test code = 5778-6) Dark Yellow Clarity, UA (test code = 5767-9) Clear Specific [place], UA (test code = 5811-5) 1.012 1.001-1.035 pH, UA (test code = 5803-2) 6.0 5.0-8.0 Protein, UA (test code = 60171-4) 20 mg/dL Negative A Glucose, UA (test code = 365) Negative Negative Ketones, UA (test code = 2514-8) Negative Negative Bilirubin, UA (test code = 06599-2) Positive Negative A Blood, UA (test code = 85559-4) Negative Negative Nitrite, UA (test code = 5802-4) Negative Negative Leukocytes, UA (test code = 5799-2) Negative Negative Urobilinogen, UA (test code = 63665-8) 3.0 mg/dL 0.2-1 H RBC, UA (test code = 19162-4) 0 /HPF WBC, UA (test code = 5821-4) 1 /HPF Bacteria, UA (test code = 78930-0) Occasional Mucus (test code = 8247-9) Rare Specimen Source (test code = 2795) Urine, Clean Catch Lab Interpretation (test code = 92046-2) [facility] [id number] 22:58:00* Test Item Value Reference Range Interpretation Comments COLOR (BEAKER) (test code = 470) Dark Yellow CLARITY (BEAKER) (test code = 469) Clear SPECIFIC GRAVITY UA (BEAKER) (test code = 468) 1.012 1.001-1 .035 PH UA (BEAKER) (test code = 467) 6.0 5.0-8.0 PROTEIN UA (BEAKER) (test code = 464) 20 mg/dL Negative A GLUCOSE UA (BEAKER) (test code = 365) Negative Negative KETONES UA (BEAKER) (test code = 371) Negative Negative BILIRUBIN UA (BEAKER) (test code = 462) Positive Negative A BLOOD UA (BEAKER) (test code = 461) Negative Negative NITRITE UA (BEAKER) (test code = 465) Negative Negative LEUKOCYTE ESTERASE UA (BEAKER) (test code = 466) Negative Negat mumtaz UROBILINOGEN UA (BEAKER) (test code = 463) 3.0 mg/dL 0.2-1.0 H RBC UA (BEAKER) (test code = 519) 0 /HPF WBC UA (BEAKER) (test code = 520) 1 /HPF BACTERIA (BEAKER) (test code = 517) Occasional MUCUS (BEAKER) (test code = 1574) Rare SOURCE(BEAKER) (test code = 2795) Urine, Clean Catch Hepatitis B surface [id number] 20:23:00* Test Item Value Reference Range Interpretation Comments Hep B S Ab (test code = 33225-5) <8.0 <8.0 mIU/mL Lab Interpretation (test code = 08088-9) [facility] [id number] 20:23:00* Test Item Value Reference Range Interpretation Comments HEPATITIS B SURFACE ANTIBODY (BEAKER) (test code = 647) < mIU/mL <8.0 Hepatitis B core antibody, [id number] 20:22:00* Test Item Value Reference Range Interpretation Comments Hep B Core Total Ab (test code = 00326-4) Nonreactive Nonreactive Lab Interpretation (test code = 59745-2) [facility] [id number] 20:22:00* Test Item Value Reference Range Interpretation Comments HEPATITIS B SURFACE ANTIGEN (2) ([facility]) (test code = 2585) Nonreactive Nonreactive HEPATITIS B CORE ANTIBODY, [id number] 20:22:00* Test Item Value Reference Range Interpretation Comments HEPATITIS B CORE TOTAL ANTIBODY (BEAKER) (test code = 497) N onreactive Nonreactive RAD, CHEST, 1 VIEW, NON [id number] 20:17:00Reason for exam:->pleuritic chest painShould this be performed at the bedside?->YesFINAL REPORT Chest one view. Clinical history: pleuritic chest pain Comparison: Chest radiograph 10/16/2018. Technique: A single frontal view of the chest was obtained. Findings:There is a right IJ central venous catheter with tip in the SVC.There is stable enlargement of the cardiac silhouette. There is pulmonary interstitial edema. There is no focal pulmonary consolidation, pleural effusion or pneumothorax. The bony thorax is unremarkable. Impression:Right IJ central venous catheter with tip in the SVC.Cardiomegaly. Pulmonary interstitial edema. No pneumothorax. Signed: Nicolás Ceballos Verified Date/Time: 11/05/2018 20:17:29 , NON-TUNNELED DIALYSIS CATH, [id number] 19:49:00Reason for exam:->need dialysisFINAL REPORT PROCEDURE: Non-tunneled dialysis catheter placement Procedural PersonnelAttending physician(s): Queenie Sorenson physician(s): REJI Avilaesijosh physician(s): Chetan Patel practice provider(s): None Pre-procedure diagnosis: Acute kidney injuryPost-procedure diagnosis: SameIndication: Performance of hemodialysisAdditional clinical history: None Complications: No immediate complications. IMPRESSION: Insertion of right-sided non-tunneled dual-lumen temporary dialysis catheter, with tip in the expected location of the cavoatrial junction. Plan: The catheter may be used immediatel y. PROCEDURE SUMM NICK:- Venous access with ultrasound guidance- Non-tunneled central venous cathet er insertion with fluoroscopic guidance- Additional procedure(s): None PROCEDURE DETAILS: Pre-procedureConsent: Informed consent for the procedure including ris ks, benefits and alternatives was obtained and time-out was performed prior to t he procedure.Preparation (MIPS): The site was prepared and draped using all [place] ents of maximal sterile barrier technique including sterile gloves, sterile gown , cap, mask, large sterile sheet, sterile ultrasound probe cover, hand hygiene a nd cutaneous antisepsis with 2% chlorhexidine. Medical reason for site preparati on exception (MIPS): Not applicable Anesthesia/sedationLevel of anesthesia/sedat ion: No sedationAnesthesia/sedation administered by: Independent trained observe r under attending supervision with continuous monitoring of the patient\\X2019\\s level of consciousness and physiologic status AccessLocal anesthesia was adminis tered. The vessel was sonographically evaluated and determined to be patent. Iona l time ultrasound was used to visualize needle entry into the vessel and a perma nent image was stored.Vein accessed: Internal jugular veinAccess technique: Micr opuncture set with 21 gauge needle Catheter placementThe access site was dilated and the catheter was placed into the vein over a wire under fluoroscopic good nce. The catheter tip location was fluoroscopically verified and a permanent im age was stored.. A sterile dressing was applied.Catheter placed: Schon XLCathete r size (Emirati): 14Catheter length (cm): 15Catheter flush: Heparin (1000 units/m L)Catheter securement technique: Non-absorbable suture ContrastContrast agent: N one Radiation DoseFluoroscopy time (minutes): 1.6 Reference air kerma (mGy): 9. 9 Additional DetailsAdditional description of procedure: NoneEquipment details: NoneSpecimens removed: NoneEstimated blood loss (mL): Less than 10Standardized report: [id number] AttestationSigner name: Srinivasan Jessica attes t that I was present for the entire procedure. I reviewed the stored images and agree with the report as written. Signed: ChiangAleksandracathie MDReport Verified Date/Fernando e: 11/05/2018 19:49:40 Reading Location: [facility] P048 Angio Body Reading Room non- tunneled dialysis catheter [id number] 19:49:00Interface, External Ris In - 11/05/2018 7:51 PM CDTFINAL REPORT PROCEDURE: Non- tunneled dialysis catheter placement Procedural PersonnelAttending physician(s): Srinivasan Chiang MDFeshae physician(s): Remedios Avila physician(s): Dion Way MDAdvanced practice provider(s): None Pre-procedure diagnosis: Acute kidney injuryPost-procedure diagnosis: SameIndication: Performance of hemodialysisAdditional clinical history: None Complications: No immediate complications. IMPRESSION: Insertion of right-sided non-tunneled dual-lumen t emporary dialysis catheter, with tip in the expected location of the cavoatrial junction. Plan: The catheter may be used immediately. PROCEDURE SUMMARY:- Venous access with ult rasound guidance- Non-tunneled central venous catheter insertion with fluoroscop ic guidance- Additional procedure(s): None PROCEDURE DETAILS: Pre-procedureConse nt: Informed consent for the procedure including risks, benefits and alternative s was obtained and time-out was performed prior to the procedure.Preparation (NC PS): The site was prepared and draped using all elements of maximal sterile mae ier technique including sterile gloves, sterile gown, cap, mask, large sterile s heet, sterile ultrasound probe cover, hand hygiene and cutaneous antisepsis with 2% chlorhexidine. Medical reason for site preparation exception (MIPS): Not ector licable Anesthesia/sedationLevel of anesthesia/sedation: No sedationAnesthesia/s edation administered by: Independent trained observer under attending supervisio n with continuous monitoring of the patient\\X2019\\s level of consciousness and p hysiologic status AccessLocal anesthesia was administered. The vessel was sonogr aphically evaluated and determined to be patent. Real time ultrasound was used t o visualize needle entry into the vessel and a permanent image was stored.Vein a ccessed: Internal jugular veinAccess technique: Micropuncture set with 21 gauge needle Catheter placementThe access site was dilated and the catheter was placed into the vein over a wire under fluoroscopic guidance. The catheter tip locat ion was fluoroscopically verified and a permanent image was stored.. A sterile d ressing was applied.Catheter placed: Schon XLCatheter size (Emirati): 14Catheter length (cm): 15Catheter flush: Heparin (1000 units/mL)Catheter securement techni que: Non-absorbable suture ContrastContrast agent: None Radiation DoseFluoroscop y time (minutes): 1.6 Reference air kerma (mGy): 9.9 Additional DetailsAdditio nal description of procedure: NoneEquipment details: NoneSpecimens removed: None Estimated blood loss (mL): Less than 10Standardized report: [id number] [id number] AttestationSigner name: Srinivasan Jessica attest that I was present for the entire procedure. I reviewed the stored images and agree with the report as wri tten. Signed: Srinivasan Chiang MDReport Verified Date/Time: 11/05/2018 19:49:40 Read ing Location: [place] [address] Angio Body Reading Room [facility] W/PLT COUNT & AUTO [id number] 10:46:00* Test Item Value Reference Range Interpretation Comments WHITE BLOOD CELL COUNT (BEAKER) (test code = 775) 28.2 K/ L 3.5- 10.5 H RED BLOOD CELL COUNT (BEAKER) (test code = 761) 2.31 M/ L 4.63-6 .08 L HEMOGLOBIN (BEAKER) (test code = 410) 8.0 GM/DL 13.7-17.5 L HEMATOCRIT (BEAKER) (test code = 411) 24.9 % 40.1-51.0 L MEAN CORPUSCULAR VOLUME (BEAKER) (test code = 753) 107.8 fL 79. 0-92.2 H MEAN CORPUSCULAR HEMOGLOBIN (BEAKER) (test code = 751) 34.6 pg 25.7-32.2 H MEAN CORPUSCULAR HEMOGLOBIN CONC (BEAKER) (test code = 752) 32.1 GM/DL 32.3-36.5 L RED CELL DISTRIBUTION WIDTH (BEAKER) (test code = 412) 16.7 % 11.6-14.4 H PLATELET COUNT (BEAKER) (test code = 756) 248 K/CU MM 150-450 MEAN PLATELET VOLUME (BEAKER) (test code = 754) 10.6 fL 9.4-12 .4 NUCLEATED RED BLOOD CELLS (BEAKER) (test code = 413) 0 /100 WBC 0 -0 (CELLAVISION MANUAL DIFF)2018-11-05 10:46:00* Test Item Value Reference Range Interpretation Comments NEUTROPHILS - REL (CELLAVISION)(BEAKER) (test code = 2816) 92 % LYMPHOCYTES - REL (CELLAVISION)(BEAKER) (test code = 2817) 4 % MONOCYTES - REL (CELLAVISION)(BEAKER) (test code = 2818) 4 % NEUTROPHILS - ABS (CELLAVISION)(BEAKER) (test code = 2830) 25.94 K/ul 1.78-5.38 H LYMPHOCYTES - ABS (CELLAVISION)(BEAKER) (test code = 2831) 1.13 K/ul 1.32-3.57 L MONOCYTES - ABS (CELLAVISION)(BEAKER) (test code = 2832) 1.13 K/uL 0.30-0.82 H TOTAL COUNTED (BEAKER) (test code = 1351) 100 WBC MORPHOLOGY (BEAKER) (test code = 487) Normal PLT MORPHOLOGY (BEAKER) (test code = 486) Normal HYPOCHROMIA (BEAKER) (test code = 963) 1+ few ANISOCYTOSIS (BEAKER) (test code = 961) 1+ few MACROCYTES (BEAKER) (test code = 964) 2+ moderate POIKILOCYTES (BEAKER) (test code = 966) 3+ many SCHISTOCYTES (BEAKER) (test code = 765) 1+ few TEAR DROP CELLS (BEAKER) (test code = 481) 1+ few ALL CELLS (BEAKER) (test code = 474) 3+ many ARTIFACT (CELLAVISION)(BEAKER) (test code = 3432) Present HELMET CELLS (CELLAVISION)(BEAKER) (test code = 3434) 1+ few PLATELET CONCENTRATION (CELLAVISION)(BEAKER) (test code = 3438) Cheryl quate Received comment: User comments: Slide comments: BASIC METABOLIC [id number] 06:48:00* Test Item Value Reference Range Interpretation Comments SODIUM (BEAKER) (test code = 381) 137 meq/L 136-145 POTASSIUM (BEAKER) (test code = 379) 4.9 meq/L 3.5-5.1 CHLORIDE (BEAKER) (test code = 382) 104 meq/L 98-107 CO2 (BEAKER) (test code = 355) 19 meq/L 22-29 L BLOOD UREA NITROGEN (BEAKER) (test code = 354) 49 mg/dL 7-21 H CREATININE (BEAKER) (test code = 358) 3.60 mg/dL 0.57-1.25 H GLUCOSE RANDOM (BEAKER) (test code = 652) 135 mg/dL 70-105 H CALCIUM (BEAKER) (test code = 697) 9.8 mg/dL 8.4-10.2 EGFR (BEAKER) (test code = 1092) 19 mL/min/1.73 sq m ESTIMATED GFR IS NOT ACCURATE CREATININE CLEARANCE IN PREDICTING GLOMERULAR FILTRATION RATE. ESTIMATED GFR IS NOT APPLICABLE FOR DIALYSIS PATIENTS. Specimen markedly ictericHEPATIC FUNCTION [id number] 06:48:00* Test Item Value Reference Range Interpretation Comments TOTAL PROTEIN (BEAKER) (test code = 770) 7.1 gm/dL 6.0-8.3 ALBUMIN (BEAKER) (test code = 1145) 4.1 g/dL 3.5-5.0 BILIRUBIN TOTAL (BEAKER) (test code = 377) 49.7 mg/dL 0.2-1.2 H BILIRUBIN DIRECT (BEAKER) (test code = 706) 33.5 mg/dL 0.1-0.5 H ALKALINE PHOSPHATASE (BEAKER) (test code = 346) 142 U/L 40-150 AST (SGOT) (BEAKER) (test code = 353) 211 U/L 5-34 H ALT (SGPT) (BEAKER) (test code = 347) 82 U/L 6-55 H Specimen markedly [id number] 06:44:00* Test Item Value Reference Range Interpretation Comments PHOSPHORUS (BEAKER) (test code = 604) 3.7 mg/dL 2.3-4.7 [id number] 06:44:00* Test Item Value Reference Range Interpretation Comments MAGNESIUM (BEAKER) (test code = 627) 2.5 mg/dL 1.6-2.6 PT/[id number] 05:49:00* Test Item Value Reference Range Interpretation Comments PROTIME (BEAKER) (test code = 759) 20.7 seconds 11.9-14.2 H INR (BEAKER) (test code = 370) 1.9 <=5.9 PARTIAL THROMBOPLASTIN TIME (BEAKER) (test code = 760) 39.9 seconds 22.5-36.0 H Effective 07/24/2018: PT Reference Range ChangeNew: 11.9-14.2 Previous: 11.7-14. 7RECOMMENDED COUMADIN/WARFARIN INR THERAPY RANGESSTANDARD DOSE: 2.0-3.0 Include s: PROPHYLAXIS for venous thrombosis, systemic embolization; TREATMENT for venou s thrombosis and/or pulmonary embolus.HIGH RISK: Target INR is 2.5-3.5 for patie nts wiht mechanical heart valves.PROTHROMBIN TIME/[id number] 05:48:00* Test Item Value Reference Range Interpretation Comments PROTIME (BEAKER) (test code = 759) 20.7 seconds 11.9-14.2 H INR (BEAKER) (test code = 370) 1.9 <=5.9 Effective 07/24/2018: PT Reference Range ChangeNew: 11.9-14.2 Previous: 11.7-14. 7RECOMMENDED COUMADIN/WARFARIN INR THERAPY RANGESSTANDARD DOSE: 2.0-3.0 Include s: PROPHYLAXIS for venous thrombosis, systemic embolization; TREATMENT for venou s thrombosis and/or pulmonary embolus.HIGH RISK: Target INR is 2.5-3.5 for patie nts wiht mechanical heart valves.URINALYSIS W/ REFLEX URINE [id number] 20:41:00* Test Item Value Reference Range Interpretation Comments COLOR (BEAKER) (test code = 470) Dark Yellow CLARITY (BEAKER) (test code = 469) Clear SPECIFIC GRAVITY UA (BEAKER) (test code = 468) 1.011 1.001-1 .035 PH UA (BEAKER) (test code = 467) 6.0 5.0-8.0 PROTEIN UA (BEAKER) (test code = 464) 20 mg/dL Negative A GLUCOSE UA (BEAKER) (test code = 365) Negative Negative KETONES UA (BEAKER) (test code = 371) Negative Negative BILIRUBIN UA (BEAKER) (test code = 462) Positive Negative A BLOOD UA (BEAKER) (test code = 461) Negative Negative NITRITE UA (BEAKER) (test code = 465) Negative Negative LEUKOCYTE ESTERASE UA (BEAKER) (test code = 466) Negative Negat mumtaz UROBILINOGEN UA (BEAKER) (test code = 463) 2.0 mg/dL 0.2-1.0 H RBC UA (BEAKER) (test code = 519) 0 /HPF WBC UA (BEAKER) (test code = 520) 1 /HPF BACTERIA (BEAKER) (test code = 517) Rare MUCUS (BEAKER) (test code = 1574) Rare SOURCE(BEAKER) (test code = 2795) [id number] 14:10:00* Test Item Value Reference Range Interpretation Comments AMMONIA (BEAKER) (test code = 348) 101 mol/L 18-72 H CBC W/PLT COUNT & AUTO [id number] 10:57:00* Test Item Value Reference Range Interpretation Comments WHITE BLOOD CELL COUNT (BEAKER) (test code = 775) 23.3 K/ L 3.5- 10.5 H RED BLOOD CELL COUNT (BEAKER) (test code = 761) 2.06 M/ L 4.63-6 .08 L HEMOGLOBIN (BEAKER) (test code = 410) 7.2 GM/DL 13.7-17.5 L HEMATOCRIT (BEAKER) (test code = 411) 22.1 % 40.1-51.0 L MEAN CORPUSCULAR VOLUME (BEAKER) (test code = 753) 107.3 fL 79. 0-92.2 H MEAN CORPUSCULAR HEMOGLOBIN (BEAKER) (test code = 751) 35.0 pg 25.7-32.2 H MEAN CORPUSCULAR HEMOGLOBIN CONC (BEAKER) (test code = 752) 32.6 GM/DL 32.3-36.5 RED CELL DISTRIBUTION WIDTH (BEAKER) (test code = 412) 16.6 % 11.6-14.4 H PLATELET COUNT (BEAKER) (test code = 756) 195 K/CU MM 150-450 MEAN PLATELET VOLUME (BEAKER) (test code = 754) 10.7 fL 9.4-12 .4 NUCLEATED RED BLOOD CELLS (BEAKER) (test code = 413) 0 /100 WBC 0 -0 (CELLAVISION MANUAL DIFF)2018-11-04 10:57:00* Test Item Value Reference Range Interpretation Comments NEUTROPHILS - REL (CELLAVISION)(BEAKER) (test code = 2816) 90 % LYMPHOCYTES - REL (CELLAVISION)(BEAKER) (test code = 2817) 5 % MONOCYTES - REL (CELLAVISION)(BEAKER) (test code = 2818) 5 % NEUTROPHILS - ABS (CELLAVISION)(BEAKER) (test code = 2830) 20.97 K/ul 1.78-5.38 H LYMPHOCYTES - ABS (CELLAVISION)(BEAKER) (test code = 2831) 1.17 K/ul 1.32-3.57 L MONOCYTES - ABS (CELLAVISION)(BEAKER) (test code = 2832) 1.17 K/uL 0.30-0.82 H TOTAL COUNTED (BEAKER) (test code = 1351) 100 WBC MORPHOLOGY (BEAKER) (test code = 487) Normal PLT MORPHOLOGY (BEAKER) (test code = 486) Normal HYPOCHROMIA (BEAKER) (test code = 963) 1+ few ANISOCYTOSIS (BEAKER) (test code = 961) 1+ few TARGET CELLS (BEAKER) (test code = 480) 1+ few OVALOCYTES (BEAKER) (test code = 477) 1+ few ALL CELLS (BEAKER) (test code = 474) 1+ few [id number] 10:35:00* Test Item Value Reference Range Interpretation Comments MAGNESIUM (BEAKER) (test code = 627) 2.4 mg/dL 1.6-2.6 HEPATIC FUNCTION [id number] 05:15:00* Test Item Value Reference Range Interpretation Comments TOTAL PROTEIN (BEAKER) (test code = 770) 6.5 gm/dL 6.0-8.3 ALBUMIN (BEAKER) (test code = 1145) 3.8 g/dL 3.5-5.0 BILIRUBIN TOTAL (BEAKER) (test code = 377) 48.9 mg/dL 0.2-1.2 H BILIRUBIN DIRECT (BEAKER) (test code = 706) 33.3 mg/dL 0.1-0.5 H ALKALINE PHOSPHATASE (BEAKER) (test code = 346) 134 U/L 40-150 AST (SGOT) (BEAKER) (test code = 353) 174 U/L 5-34 H ALT (SGPT) (BEAKER) (test code = 347) 64 U/L 6-55 H Specimen markedly ictericBASIC METABOLIC [id number] 05:14:00* Test Item Value Reference Range Interpretation Comments SODIUM (BEAKER) (test code = 381) 134 meq/L 136-145 L POTASSIUM (BEAKER) (test code = 379) 4.9 meq/L 3.5-5.1 CHLORIDE (BEAKER) (test code = 382) 103 meq/L 98-107 CO2 (BEAKER) (test code = 355) 20 meq/L 22-29 L BLOOD UREA NITROGEN (BEAKER) (test code = 354) 50 mg/dL 7-21 H CREATININE (BEAKER) (test code = 358) 3.73 mg/dL 0.57-1.25 H GLUCOSE RANDOM (BEAKER) (test code = 652) 183 mg/dL 70-105 H CALCIUM (BEAKER) (test code = 697) 9.3 mg/dL 8.4-10.2 EGFR (BEAKER) (test code = 1092) 18 mL/min/1.73 sq m ESTIMATED GFR IS NOT ACCURATE CREATININE CLEARANCE IN PREDICTING GLOMERULAR FILTRATION RATE. ESTIMATED GFR IS NOT APPLICABLE FOR DIALYSIS PATIENTS. Specimen markedly ictericPROTHROMBIN TIME/[id number] 04:51:00* Test Item Value Reference Range Interpretation Comments PROTIME (BEAKER) (test code = 759) 21.6 seconds 11.9-14.2 H INR (BEAKER) (test code = 370) 2.0 <=5.9 Effective 07/24/2018: PT Reference Range ChangeNew: 11.9-14.2 Previous: 11.7-14. 7RECOMMENDED COUMADIN/WARFARIN INR THERAPY RANGESSTANDARD DOSE: 2.0-3.0 Include s: PROPHYLAXIS for venous thrombosis, systemic embolization; TREATMENT for venou s thrombosis and/or pulmonary embolus.HIGH RISK: Target INR is 2.5-3.5 for patie nts wiht mechanical heart valves.HEPATIC FUNCTION [id number] 06:30:00* Test Item Value Reference Range Interpretation Comments TOTAL PROTEIN (BEAKER) (test code = 770) 6.7 gm/dL 6.0-8.3 ALBUMIN (BEAKER) (test code = 1145) 4.0 g/dL 3.5-5.0 BILIRUBIN TOTAL (BEAKER) (test code = 377) 52.1 mg/dL 0.2-1.2 H BILIRUBIN DIRECT (BEAKER) (test code = 706) 34.6 mg/dL 0.1-0.5 H ALKALINE PHOSPHATASE (BEAKER) (test code = 346) 125 U/L 40-150 AST (SGOT) (BEAKER) (test code = 353) 154 U/L 5-34 H ALT (SGPT) (BEAKER) (test code = 347) 52 U/L 6-55 Specimen markedly ictericBASIC METABOLIC [id number] 06:30:00* Test Item Value Reference Range Interpretation Comments SODIUM (BEAKER) (test code = 381) 133 meq/L 136-145 L POTASSIUM (BEAKER) (test code = 379) 5.2 meq/L 3.5-5.1 H CHLORIDE (BEAKER) (test code = 382) 102 meq/L 98-107 CO2 (BEAKER) (test code = 355) 20 meq/L 22-29 L BLOOD UREA NITROGEN (BEAKER) (test code = 354) 46 mg/dL 7-21 H CREATININE (BEAKER) (test code = 358) 3.88 mg/dL 0.57-1.25 H GLUCOSE RANDOM (BEAKER) (test code = 652) 166 mg/dL 70-105 H CALCIUM (BEAKER) (test code = 697) 9.4 mg/dL 8.4-10.2 EGFR (BEAKER) (test code = 1092) 17 mL/min/1.73 sq m ESTIMATED GFR IS NOT ACCURATE CREATININE CLEARANCE IN PREDICTING GLOMERULAR FILTRATION RATE. ESTIMATED GFR IS NOT APPLICABLE FOR DIALYSIS PATIENTS. Specimen markedly ictericPROTHROMBIN TIME/[id number] 05:42:00* Test Item Value Reference Range Interpretation Comments PROTIME (BEAKER) (test code = 759) 20.6 seconds 11.9-14.2 H INR (BEAKER) (test code = 370) 1.9 <=5.9 Effective 07/24/2018: PT Reference Range ChangeNew: 11.9-14.2 Previous: 11.7-14. 7RECOMMENDED COUMADIN/WARFARIN INR THERAPY RANGESSTANDARD DOSE: 2.0-3.0 Include s: PROPHYLAXIS for venous thrombosis, systemic embolization; TREATMENT for venou s thrombosis and/or pulmonary embolus.HIGH RISK: Target INR is 2.5-3.5 for patie nts wiht mechanical heart valves.CBC W/PLT COUNT & AUTO [id number] 05:10:00* Test Item Value Reference Range Interpretation Comments WHITE BLOOD CELL COUNT (BEAKER) (test code = 775) 23.2 K/ L 3.5- 10.5 H RED BLOOD CELL COUNT (BEAKER) (test code = 761) 2.10 M/ L 4.63-6 .08 L HEMOGLOBIN (BEAKER) (test code = 410) 7.3 GM/DL 13.7-17.5 L HEMATOCRIT (BEAKER) (test code = 411) 22.2 % 40.1-51.0 L MEAN CORPUSCULAR VOLUME (BEAKER) (test code = 753) 105.7 fL 79. 0-92.2 H MEAN CORPUSCULAR HEMOGLOBIN (BEAKER) (test code = 751) 34.8 pg 25.7-32.2 H MEAN CORPUSCULAR HEMOGLOBIN CONC (BEAKER) (test code = 752) 32.9 GM/DL 32.3-36.5 RED CELL DISTRIBUTION WIDTH (BEAKER) (test code = 412) 16.5 % 11.6-14.4 H PLATELET COUNT (BEAKER) (test code = 756) 186 K/CU MM 150-450 MEAN PLATELET VOLUME (BEAKER) (test code = 754) 10.9 fL 9.4-12 .4 NUCLEATED RED BLOOD CELLS (BEAKER) (test code = 413) 0 /100 WBC 0 -0 NEUTROPHILS RELATIVE PERCENT (BEAKER) (test code = 429) 90 % LYMPHOCYTES RELATIVE PERCENT (BEAKER) (test code = 430) 4 % MONOCYTES RELATIVE PERCENT (BEAKER) (test code = 431) 4 % EOSINOPHILS RELATIVE PERCENT (BEAKER) (test code = 432) 0 % BASOPHILS RELATIVE PERCENT (BEAKER) (test code = 437) 0 % NEUTROPHILS ABSOLUTE COUNT (BEAKER) (test code = 670) 20.94 K/ L 1.78-5.38 H LYMPHOCYTES ABSOLUTE COUNT (BEAKER) (test code = 414) 0.98 K/ L 1.32-3.57 L MONOCYTES ABSOLUTE COUNT (BEAKER) (test code = 415) 1.03 K/ L 0. 30-0.82 H EOSINOPHILS ABSOLUTE COUNT (BEAKER) (test code = 416) 0.01 K/ L 0.04-0.54 L BASOPHILS ABSOLUTE COUNT (BEAKER) (test code = 417) 0.02 K/ L 0. 01-0.08 IMMATURE GRANULOCYTES-RELATIVE PERCENT (BEAKER) (test code = 2801) 1 % 0-1 BASIC METABOLIC [id number] 07:07:00* Test Item Value Reference Range Interpretation Comments SODIUM (BEAKER) (test code = 381) 136 meq/L 136-145 POTASSIUM (BEAKER) (test code = 379) 4.7 meq/L 3.5-5.1 CHLORIDE (BEAKER) (test code = 382) 102 meq/L 98-107 CO2 (BEAKER) (test code = 355) 20 meq/L 22-29 L BLOOD UREA NITROGEN (BEAKER) (test code = 354) 39 mg/dL 7-21 H CREATININE (BEAKER) (test code = 358) 3.77 mg/dL 0.57-1.25 H GLUCOSE RANDOM (BEAKER) (test code = 652) 186 mg/dL 70-105 H CALCIUM (BEAKER) (test code = 697) 9.7 mg/dL 8.4-10.2 EGFR (BEAKER) (test code = 1092) 18 mL/min/1.73 sq m ESTIMATED GFR IS NOT ACCURATE CREATININE CLEARANCE IN PREDICTING GLOMERULAR FILTRATION RATE. ESTIMATED GFR IS NOT APPLICABLE FOR DIALYSIS PATIENTS. Specimen markedly ictericHEPATIC FUNCTION [id number] 07:06:00* Test Item Value Reference Range Interpretation Comments TOTAL PROTEIN (BEAKER) (test code = 770) 6.8 gm/dL 6.0-8.3 ALBUMIN (BEAKER) (test code = 1145) 4.0 g/dL 3.5-5.0 BILIRUBIN TOTAL (BEAKER) (test code = 377) 53.1 mg/dL 0.2-1.2 H BILIRUBIN DIRECT (BEAKER) (test code = 706) 36.8 mg/dL 0.1-0.5 H ALKALINE PHOSPHATASE (BEAKER) (test code = 346) 127 U/L 40-150 AST (SGOT) (BEAKER) (test code = 353) 168 U/L 5-34 H ALT (SGPT) (BEAKER) (test code = 347) 49 U/L 6-55 Specimen markedly ictericPROTHROMBIN TIME/[id number] 06:21:00* Test Item Value Reference Range Interpretation Comments PROTIME (BEAKER) (test code = 759) 20.8 seconds 11.9-14.2 H INR (BEAKER) (test code = 370) 1.9 <=5.9 Effective 07/24/2018: PT Reference Range ChangeNew: 11.9-14.2 Previous: 11.7-14. 7RECOMMENDED COUMADIN/WARFARIN INR THERAPY RANGESSTANDARD DOSE: 2.0-3.0 Include s: PROPHYLAXIS for venous thrombosis, systemic embolization; TREATMENT for venou s thrombosis and/or pulmonary embolus.HIGH RISK: Target INR is 2.5-3.5 for patie nts wiht mechanical heart valves.CBC W/PLT COUNT & AUTO [id number] 06:04:00* Test Item Value Reference Range Interpretation Comments WHITE BLOOD CELL COUNT (BEAKER) (test code = 775) 21.8 K/ L 3.5- 10.5 H RED BLOOD CELL COUNT (BEAKER) (test code = 761) 2.23 M/ L 4.63-6 .08 L HEMOGLOBIN (BEAKER) (test code = 410) 7.9 GM/DL 13.7-17.5 L HEMATOCRIT (BEAKER) (test code = 411) 23.6 % 40.1-51.0 L MEAN CORPUSCULAR VOLUME (BEAKER) (test code = 753) 105.8 fL 79. 0-92.2 H MEAN CORPUSCULAR HEMOGLOBIN (BEAKER) (test code = 751) 35.4 pg 25.7-32.2 H MEAN CORPUSCULAR HEMOGLOBIN CONC (BEAKER) (test code = 752) 33.5 GM/DL 32.3-36.5 RED CELL DISTRIBUTION WIDTH (BEAKER) (test code = 412) 16.4 % 11.6-14.4 H PLATELET COUNT (BEAKER) (test code = 756) 196 K/CU MM 150-450 MEAN PLATELET VOLUME (BEAKER) (test code = 754) 10.8 fL 9.4-12 .4 NUCLEATED RED BLOOD CELLS (BEAKER) (test code = 413) 0 /100 WBC 0 -0 NEUTROPHILS RELATIVE PERCENT (BEAKER) (test code = 429) 92 % LYMPHOCYTES RELATIVE PERCENT (BEAKER) (test code = 430) 4 % MONOCYTES RELATIVE PERCENT (BEAKER) (test code = 431) 3 % EOSINOPHILS RELATIVE PERCENT (BEAKER) (test code = 432) 0 % BASOPHILS RELATIVE PERCENT (BEAKER) (test code = 437) 0 % NEUTROPHILS ABSOLUTE COUNT (BEAKER) (test code = 670) 19.95 K/ L 1.78-5.38 H LYMPHOCYTES ABSOLUTE COUNT (BEAKER) (test code = 414) 0.80 K/ L 1.32-3.57 L MONOCYTES ABSOLUTE COUNT (BEAKER) (test code = 415) 0.70 K/ L 0. 30-0.82 EOSINOPHILS ABSOLUTE COUNT (BEAKER) (test code = 416) 0.00 K/ L 0.04-0.54 L BASOPHILS ABSOLUTE COUNT (BEAKER) (test code = 417) 0.04 K/ L 0. 01-0.08 IMMATURE GRANULOCYTES-RELATIVE PERCENT (BEAKER) (test code = 2801) 1 % 0-1 BLOOD [id number] 20:01:00* Test Item Value Reference Range Interpretation Comments CULTURE (BEAKER) (test code = 1095) No growth in 5 days BLOOD [id number] 20:01:00* Test Item Value Reference Range Interpretation Comments CULTURE (BEAKER) (test code = 1095) No growth in 5 days BASIC METABOLIC [id number] 08:05:00* Test Item Value Reference Range Interpretation Comments SODIUM (BEAKER) (test code = 381) 138 meq/L 136-145 POTASSIUM (BEAKER) (test code = 379) 4.4 meq/L 3.5-5.1 CHLORIDE (BEAKER) (test code = 382) 103 meq/L 98-107 CO2 (BEAKER) (test code = 355) 22 meq/L 22-29 BLOOD UREA NITROGEN (BEAKER) (test code = 354) 36 mg/dL 7-21 H CREATININE (BEAKER) (test code = 358) 3.89 mg/dL 0.57-1.25 H GLUCOSE RANDOM (BEAKER) (test code = 652) 121 mg/dL 70-105 H CALCIUM (BEAKER) (test code = 697) 9.3 mg/dL 8.4-10.2 EGFR (BEAKER) (test code = 1092) 17 mL/min/1.73 sq m ESTIMATED GFR IS NOT ACCURATE CREATININE CLEARANCE IN PREDICTING GLOMERULAR FILTRATION RATE. ESTIMATED GFR IS NOT APPLICABLE FOR DIALYSIS PATIENTS. Specimen markedly ictericHEPATIC FUNCTION [id number] 08:04:00* Test Item Value Reference Range Interpretation Comments TOTAL PROTEIN (BEAKER) (test code = 770) 6.3 gm/dL 6.0-8.3 ALBUMIN (BEAKER) (test code = 1145) 3.8 g/dL 3.5-5.0 BILIRUBIN TOTAL (BEAKER) (test code = 377) 48.5 mg/dL 0.2-1.2 H BILIRUBIN DIRECT (BEAKER) (test code = 706) 32.7 mg/dL 0.1-0.5 H ALKALINE PHOSPHATASE (BEAKER) (test code = 346) 119 U/L 40-150 AST (SGOT) (BEAKER) (test code = 353) 155 U/L 5-34 H ALT (SGPT) (BEAKER) (test code = 347) 37 U/L 6-55 Specimen markedly ictericPROTHROMBIN [id number] 06:14:00* Test Item Value Reference Range Interpretation Comments PROTIME (BEAKER) (test code = 759) 20.9 seconds 11.9-14.2 H INR (BEAKER) (test code = 370) 1.9 <=5.9 Effective 07/24/2018: PT Reference Range ChangeNew: 11.9-14.2 Previous: 11.7-14. 7RECOMMENDED COUMADIN/WARFARIN INR THERAPY RANGESSTANDARD DOSE: 2.0-3.0 Include s: PROPHYLAXIS for venous thrombosis, systemic embolization; TREATMENT for venou s thrombosis and/or pulmonary embolus.HIGH RISK: Target INR is 2.5-3.5 for patie nts wiht mechanical heart valves.CBC W/PLT COUNT & AUTO [id number] 06:13:00* Test Item Value Reference Range Interpretation Comments WHITE BLOOD CELL COUNT (BEAKER) (test code = 775) 22.9 K/ L 3.5- 10.5 H RED BLOOD CELL COUNT (BEAKER) (test code = 761) 2.09 M/ L 4.63-6 .08 L HEMOGLOBIN (BEAKER) (test code = 410) 7.2 GM/DL 13.7-17.5 L HEMATOCRIT (BEAKER) (test code = 411) 22.2 % 40.1-51.0 L MEAN CORPUSCULAR VOLUME (BEAKER) (test code = 753) 106.2 fL 79. 0-92.2 H MEAN CORPUSCULAR HEMOGLOBIN (BEAKER) (test code = 751) 34.4 pg 25.7-32.2 H MEAN CORPUSCULAR HEMOGLOBIN CONC (BEAKER) (test code = 752) 32.4 GM/DL 32.3-36.5 RED CELL DISTRIBUTION WIDTH (BEAKER) (test code = 412) 17.0 % 11.6-14.4 H PLATELET COUNT (BEAKER) (test code = 756) 170 K/CU MM 150-450 MEAN PLATELET VOLUME (BEAKER) (test code = 754) 10.6 fL 9.4-12 .4 NUCLEATED RED BLOOD CELLS (BEAKER) (test code = 413) 0 /100 WBC 0 -0 NEUTROPHILS RELATIVE PERCENT (BEAKER) (test code = 429) 83 % LYMPHOCYTES RELATIVE PERCENT (BEAKER) (test code = 430) 5 % MONOCYTES RELATIVE PERCENT (BEAKER) (test code = 431) 7 % EOSINOPHILS RELATIVE PERCENT (BEAKER) (test code = 432) 4 % BASOPHILS RELATIVE PERCENT (BEAKER) (test code = 437) 0 % NEUTROPHILS ABSOLUTE COUNT (BEAKER) (test code = 670) 19.09 K/ L 1.78-5.38 H LYMPHOCYTES ABSOLUTE COUNT (BEAKER) (test code = 414) 1.13 K/ L 1.32-3.57 L MONOCYTES ABSOLUTE COUNT (BEAKER) (test code = 415) 1.49 K/ L 0. 30-0.82 H EOSINOPHILS ABSOLUTE COUNT (BEAKER) (test code = 416) 0.86 K/ L 0.04-0.54 H BASOPHILS ABSOLUTE COUNT (BEAKER) (test code = 417) 0.10 K/ L 0. 01-0.08 H IMMATURE GRANULOCYTES-RELATIVE PERCENT (BEAKER) (test code = 2801) 1 % 0-1 HEPATIC FUNCTION [id number] 06:59:00* Test Item Value Reference Range Interpretation Comments TOTAL PROTEIN (BEAKER) (test code = 770) 6.2 gm/dL 6.0-8.3 ALBUMIN (BEAKER) (test code = 1145) 3.7 g/dL 3.5-5.0 BILIRUBIN TOTAL (BEAKER) (test code = 377) 49.0 mg/dL 0.2-1.2 H BILIRUBIN DIRECT (BEAKER) (test code = 706) 33.2 mg/dL 0.1-0.5 H ALKALINE PHOSPHATASE (BEAKER) (test code = 346) 127 U/L 40-150 AST (SGOT) (BEAKER) (test code = 353) 134 U/L 5-34 H ALT (SGPT) (BEAKER) (test code = 347) 35 U/L 6-55 Specimen markedly ictericBASIC METABOLIC [id number] 06:56:00* Test Item Value Reference Range Interpretation Comments SODIUM (BEAKER) (test code = 381) 136 meq/L 136-145 POTASSIUM (BEAKER) (test code = 379) 4.1 meq/L 3.5-5.1 CHLORIDE (BEAKER) (test code = 382) 102 meq/L 98-107 CO2 (BEAKER) (test code = 355) 23 meq/L 22-29 BLOOD UREA NITROGEN (BEAKER) (test code = 354) 33 mg/dL 7-21 H CREATININE (BEAKER) (test code = 358) 3.73 mg/dL 0.57-1.25 H GLUCOSE RANDOM (BEAKER) (test code = 652) 135 mg/dL 70-105 H CALCIUM (BEAKER) (test code = 697) 9.1 mg/dL 8.4-10.2 EGFR (BEAKER) (test code = 1092) 18 mL/min/1.73 sq m ESTIMATED GFR IS NOT ACCURATE CREATININE CLEARANCE IN PREDICTING GLOMERULAR FILTRATION RATE. ESTIMATED GFR IS NOT APPLICABLE FOR DIALYSIS PATIENTS. Specimen markedly ictericCBC W/PLT COUNT & AUTO [id number] 05:54:00 * Test Item Value Reference Range Interpretation Comments WHITE BLOOD CELL COUNT (BEAKER) (test code = 775) 20.8 K/ L 3.5- 10.5 H RED BLOOD CELL COUNT (BEAKER) (test code = 761) 2.12 M/ L 4.63-6 .08 L HEMOGLOBIN (BEAKER) (test code = 410) 7.4 GM/DL 13.7-17.5 L HEMATOCRIT (BEAKER) (test code = 411) 22.6 % 40.1-51.0 L MEAN CORPUSCULAR VOLUME (BEAKER) (test code = 753) 106.6 fL 79. 0-92.2 H MEAN CORPUSCULAR HEMOGLOBIN (BEAKER) (test code = 751) 34.9 pg 25.7-32.2 H MEAN CORPUSCULAR HEMOGLOBIN CONC (BEAKER) (test code = 752) 32.7 GM/DL 32.3-36.5 RED CELL DISTRIBUTION WIDTH (BEAKER) (test code = 412) 16.8 % 11.6-14.4 H PLATELET COUNT (BEAKER) (test code = 756) 163 K/CU MM 150-450 MEAN PLATELET VOLUME (BEAKER) (test code = 754) 10.7 fL 9.4-12 .4 NUCLEATED RED BLOOD CELLS (BEAKER) (test code = 413) 0 /100 WBC 0 -0 NEUTROPHILS RELATIVE PERCENT (BEAKER) (test code = 429) 83 % LYMPHOCYTES RELATIVE PERCENT (BEAKER) (test code = 430) 5 % MONOCYTES RELATIVE PERCENT (BEAKER) (test code = 431) 7 % EOSINOPHILS RELATIVE PERCENT (BEAKER) (test code = 432) 4 % BASOPHILS RELATIVE PERCENT (BEAKER) (test code = 437) 0 % NEUTROPHILS ABSOLUTE COUNT (BEAKER) (test code = 670) 17.33 K/ L 1.78-5.38 H LYMPHOCYTES ABSOLUTE COUNT (BEAKER) (test code = 414) 0.94 K/ L 1.32-3.57 L MONOCYTES ABSOLUTE COUNT (BEAKER) (test code = 415) 1.40 K/ L 0. 30-0.82 H EOSINOPHILS ABSOLUTE COUNT (BEAKER) (test code = 416) 0.77 K/ L 0.04-0.54 H BASOPHILS ABSOLUTE COUNT (BEAKER) (test code = 417) 0.09 K/ L 0. 01-0.08 H IMMATURE GRANULOCYTES-RELATIVE PERCENT (BEAKER) (test code = 2801) 1 % 0-1 PROTHROMBIN [id number] 05:46:00* Test Item Value Reference Range Interpretation Comments PROTIME (BEAKER) (test code = 759) 21.0 seconds 11.9-14.2 H INR (BEAKER) (test code = 370) 1.9 <=5.9 Effective 07/24/2018: PT Reference Range ChangeNew: 11.9-14.2 Previous: 11.7-14. 7RECOMMENDED COUMADIN/WARFARIN INR THERAPY RANGESSTANDARD DOSE: 2.0-3.0 Include s: PROPHYLAXIS for venous thrombosis, systemic embolization; TREATMENT for venou s thrombosis and/or pulmonary embolus.HIGH RISK: Target INR is 2.5-3.5 for patie nts wiht mechanical heart valves.Sodium, random [id number] 23:21:00* Test Item Value Reference Range Interpretation Comments Sodium Urine (test code = 2955-3) 34 meq/L PHILLIP (test code = PHILLIP) Reference Range: No [facility]als [facility] [id number] 23:21:00* Test Item Value Reference Range Interpretation Comments SODIUM URINE (BEAKER) (test code = 243) 34 meq/L Reference Range: No NormalsBODY FLUID CULTURE + GRAM [id number] 10:20:00* Test Item Value Reference Range Interpretation Comments CULTURE (BEAKER) (test code = 1095) No growth GRAM STAIN RESULT (BEAKER) (test code = 1123) <1+ White blood cells seen GRAM STAIN RESULT (BEAKER) (test code = 85004) No organisms seen HEPATIC FUNCTION [id number] 05:14:00* Test Item Value Reference Range Interpretation Comments TOTAL PROTEIN (BEAKER) (test code = 770) 6.0 gm/dL 6.0-8.3 ALBUMIN (BEAKER) (test code = 1145) 3.5 g/dL 3.5-5.0 BILIRUBIN TOTAL (BEAKER) (test code = 377) 47.8 mg/dL 0.2-1.2 H BILIRUBIN DIRECT (BEAKER) (test code = 706) 32.6 mg/dL 0.1-0.5 H ALKALINE PHOSPHATASE (BEAKER) (test code = 346) 119 U/L 40-150 AST (SGOT) (BEAKER) (test code = 353) 124 U/L 5-34 H ALT (SGPT) (BEAKER) (test code = 347) 33 U/L 6-55 Specimen markedly ictericBASIC METABOLIC [id number] 05:13:00* Test Item Value Reference Range Interpretation Comments SODIUM (BEAKER) (test code = 381) 136 meq/L 136-145 POTASSIUM (BEAKER) (test code = 379) 4.1 meq/L 3.5-5.1 CHLORIDE (BEAKER) (test code = 382) 102 meq/L 98-107 CO2 (BEAKER) (test code = 355) 23 meq/L 22-29 BLOOD UREA NITROGEN (BEAKER) (test code = 354) 30 mg/dL 7-21 H CREATININE (BEAKER) (test code = 358) 3.51 mg/dL 0.57-1.25 H GLUCOSE RANDOM (BEAKER) (test code = 652) 127 mg/dL 70-105 H CALCIUM (BEAKER) (test code = 697) 9.1 mg/dL 8.4-10.2 EGFR (BEAKER) (test code = 1092) 20 mL/min/1.73 sq m ESTIMATED GFR IS NOT ACCURATE CREATININE CLEARANCE IN PREDICTING GLOMERULAR FILTRATION RATE. ESTIMATED GFR IS NOT APPLICABLE FOR DIALYSIS PATIENTS. Specimen markedly ictericCBC W/PLT COUNT & AUTO [id number] 04:24:00 * Test Item Value Reference Range Interpretation Comments WHITE BLOOD CELL COUNT (BEAKER) (test code = 775) 20.1 K/ L 3.5- 10.5 H RED BLOOD CELL COUNT (BEAKER) (test code = 761) 2.12 M/ L 4.63-6 .08 L HEMOGLOBIN (BEAKER) (test code = 410) 7.4 GM/DL 13.7-17.5 L HEMATOCRIT (BEAKER) (test code = 411) 22.5 % 40.1-51.0 L MEAN CORPUSCULAR VOLUME (BEAKER) (test code = 753) 106.1 fL 79. 0-92.2 H MEAN CORPUSCULAR HEMOGLOBIN (BEAKER) (test code = 751) 34.9 pg 25.7-32.2 H MEAN CORPUSCULAR HEMOGLOBIN CONC (BEAKER) (test code = 752) 32.9 GM/DL 32.3-36.5 RED CELL DISTRIBUTION WIDTH (BEAKER) (test code = 412) 17.0 % 11.6-14.4 H PLATELET COUNT (BEAKER) (test code = 756) 172 K/CU MM 150-450 MEAN PLATELET VOLUME (BEAKER) (test code = 754) 10.1 fL 9.4-12 .4 NUCLEATED RED BLOOD CELLS (BEAKER) (test code = 413) 0 /100 WBC 0 -0 NEUTROPHILS RELATIVE PERCENT (BEAKER) (test code = 429) 81 % LYMPHOCYTES RELATIVE PERCENT (BEAKER) (test code = 430) 5 % MONOCYTES RELATIVE PERCENT (BEAKER) (test code = 431) 8 % EOSINOPHILS RELATIVE PERCENT (BEAKER) (test code = 432) 4 % BASOPHILS RELATIVE PERCENT (BEAKER) (test code = 437) 0 % NEUTROPHILS ABSOLUTE COUNT (BEAKER) (test code = 670) 16.27 K/ L 1.78-5.38 H LYMPHOCYTES ABSOLUTE COUNT (BEAKER) (test code = 414) 1.09 K/ L 1.32-3.57 L MONOCYTES ABSOLUTE COUNT (BEAKER) (test code = 415) 1.50 K/ L 0. 30-0.82 H EOSINOPHILS ABSOLUTE COUNT (BEAKER) (test code = 416) 0.78 K/ L 0.04-0.54 H BASOPHILS ABSOLUTE COUNT (BEAKER) (test code = 417) 0.09 K/ L 0. 01-0.08 H IMMATURE GRANULOCYTES-RELATIVE PERCENT (BEAKER) (test code = 2801) 2 % 0-1 H PROTHROMBIN [id number] 04:21:00* Test Item Value Reference Range Interpretation Comments PROTIME (BEAKER) (test code = 759) 21.3 seconds 11.9-14.2 H INR (BEAKER) (test code = 370) 2.0 <=5.9 Effective 07/24/2018: PT Reference Range ChangeNew: 11.9-14.2 Previous: 11.7-14. 7RECOMMENDED COUMADIN/WARFARIN INR THERAPY RANGESSTANDARD DOSE: 2.0-3.0 Include s: PROPHYLAXIS for venous thrombosis, systemic embolization; TREATMENT for venou s thrombosis and/or pulmonary embolus.HIGH RISK: Target INR is 2.5-3.5 for patie nts wiht mechanical heart valves.MISCELLANEOUS LAB [id number] 11:32:00* Test Item Value Reference Range Interpretation Comments SCAN RESULT (test code = 6258661) CBC W/PLT COUNT & AUTO [id number] 09:11:00* Test Item Value Reference Range Interpretation Comments WHITE BLOOD CELL COUNT (BEAKER) (test code = 775) 20.2 K/ L 3.5- 10.5 H RED BLOOD CELL COUNT (BEAKER) (test code = 761) 2.13 M/ L 4.63-6 .08 L HEMOGLOBIN (BEAKER) (test code = 410) 7.5 GM/DL 13.7-17.5 L HEMATOCRIT (BEAKER) (test code = 411) 22.8 % 40.1-51.0 L MEAN CORPUSCULAR VOLUME (BEAKER) (test code = 753) 107.0 fL 79. 0-92.2 H MEAN CORPUSCULAR HEMOGLOBIN (BEAKER) (test code = 751) 35.2 pg 25.7-32.2 H MEAN CORPUSCULAR HEMOGLOBIN CONC (BEAKER) (test code = 752) 32.9 GM/DL 32.3-36.5 RED CELL DISTRIBUTION WIDTH (BEAKER) (test code = 412) 17.0 % 11.6-14.4 H PLATELET COUNT (BEAKER) (test code = 756) 189 K/CU MM 150-450 MEAN PLATELET VOLUME (BEAKER) (test code = 754) 10.3 fL 9.4-12 .4 NUCLEATED RED BLOOD CELLS (BEAKER) (test code = 413) 0 /100 WBC 0 -0 (CELLAVISION MANUAL DIFF)[id number] 09:11:00* Test Item Value Reference Range Interpretation Comments NEUTROPHILS - REL (CELLAVISION)(BEAKER) (test code = 2816) 80 % LYMPHOCYTES - REL (CELLAVISION)(BEAKER) (test code = 2817) 8 % MONOCYTES - REL (CELLAVISION)(BEAKER) (test code = 2818) 9 % EOSINOPHILS - REL (CELLAVISION)(BEAKER) (test code = 2819) 2 % METAMYELOCYTES - REL (CELLAVISION)(BEAKER) (test code = 2821) 1 % 0-0 H NEUTROPHILS - ABS (CELLAVISION)(BEAKER) (test code = 2830) 16.16 K/ul 1.78-5.38 H LYMPHOCYTES - ABS (CELLAVISION)(BEAKER) (test code = 2831) 1.62 K/ul 1.32-3.57 MONOCYTES - ABS (CELLAVISION)(BEAKER) (test code = 2832) 1.82 K/uL 0.30-0.82 H EOSINOPHILS - ABS (CELLAVISION)(BEAKER) (test code = 2834) 0.40 K/uL 0.04-0.54 METAMYELOCYTES - ABS (CELLAVISION)(BEAKER) (test code = 2836 ) 0.20 K/uL 0.00-0.00 H TOTAL COUNTED (BEAKER) (test code = 1351) 100 WBC MORPHOLOGY (BEAKER) (test code = 487) Normal PLT MORPHOLOGY (BEAKER) (test code = 486) Normal POLYCHROMATOPHILLIC RBCS(BEAKER) (test code = 478) 1+ few ANISOCYTOSIS (BEAKER) (test code = 961) 1+ few MACROCYTES (BEAKER) (test code = 964) 1+ few POIKILOCYTES (BEAKER) (test code = 966) 1+ few TEAR DROP CELLS (BEAKER) (test code = 481) 1+ few ALL CELLS (BEAKER) (test code = 474) 1+ few BASOPHILIC STIPPLING (BEAKER) (test code = 473) Present ARTIFACT (CELLAVISION)(BEAKER) (test code = 3432) Present PLATELET CONCENTRATION (CELLAVISION)(BEAKER) (test code = 3438) Cheryl quate Received comment: User comments: Slide comments: BASIC METABOLIC [id number] 05:26:00* Test Item Value Reference Range Interpretation Comments SODIUM (BEAKER) (test code = 381) 137 meq/L 136-145 POTASSIUM (BEAKER) (test code = 379) 4.0 meq/L 3.5-5.1 CHLORIDE (BEAKER) (test code = 382) 101 meq/L 98-107 CO2 (BEAKER) (test code = 355) 25 meq/L 22-29 BLOOD UREA NITROGEN (BEAKER) (test code = 354) 29 mg/dL 7-21 H CREATININE (BEAKER) (test code = 358) 3.59 mg/dL 0.57-1.25 H GLUCOSE RANDOM (BEAKER) (test code = 652) 108 mg/dL 70-105 H CALCIUM (BEAKER) (test code = 697) 9.4 mg/dL 8.4-10.2 EGFR (BEAKER) (test code = 1092) 19 mL/min/1.73 sq m ESTIMATED GFR IS NOT ACCURATE CREATININE CLEARANCE IN PREDICTING GLOMERULAR FILTRATION RATE. ESTIMATED GFR IS NOT APPLICABLE FOR DIALYSIS PATIENTS. Specimen markedly ictericHEPATIC FUNCTION [id number] 05:26:00* Test Item Value Reference Range Interpretation Comments TOTAL PROTEIN (BEAKER) (test code = 770) 6.1 gm/dL 6.0-8.3 ALBUMIN (BEAKER) (test code = 1145) 3.7 g/dL 3.5-5.0 BILIRUBIN TOTAL (BEAKER) (test code = 377) 49.1 mg/dL 0.2-1.2 H BILIRUBIN DIRECT (BEAKER) (test code = 706) 33.7 mg/dL 0.1-0.5 H ALKALINE PHOSPHATASE (BEAKER) (test code = 346) 105 U/L 40-150 AST (SGOT) (BEAKER) (test code = 353) 131 U/L 5-34 H ALT (SGPT) (BEAKER) (test code = 347) 32 U/L 6-55 Specimen markedly ictericPROTHROMBIN TIME/[id number] 04:51:00* Test Item Value Reference Range Interpretation Comments PROTIME (BEAKER) (test code = 759) 21.2 seconds 11.9-14.2 H INR (BEAKER) (test code = 370) 2.0 <=5.9 Effective 07/24/2018: PT Reference Range ChangeNew: 11.9-14.2 Previous: 11.7-14. 7RECOMMENDED COUMADIN/WARFARIN INR THERAPY RANGESSTANDARD DOSE: 2.0-3.0 Include s: PROPHYLAXIS for venous thrombosis, systemic embolization; TREATMENT for venou s thrombosis and/or pulmonary embolus.HIGH RISK: Target INR is 2.5-3.5 for patie nts wiht mechanical heart valves.HEPATIC FUNCTION [id number] 05:37:00* Test Item Value Reference Range Interpretation Comments TOTAL PROTEIN (BEAKER) (test code = 770) 6.0 gm/dL 6.0-8.3 ALBUMIN (BEAKER) (test code = 1145) 3.7 g/dL 3.5-5.0 BILIRUBIN TOTAL (BEAKER) (test code = 377) 47.4 mg/dL 0.2-1.2 H BILIRUBIN DIRECT (BEAKER) (test code = 706) 32.0 mg/dL 0.1-0.5 H ALKALINE PHOSPHATASE (BEAKER) (test code = 346) 105 U/L 40-150 AST (SGOT) (BEAKER) (test code = 353) 106 U/L 5-34 H ALT (SGPT) (BEAKER) (test code = 347) 28 U/L 6-55 Specimen markedly ictericBASIC METABOLIC [id number] 05:37:00* Test Item Value Reference Range Interpretation Comments SODIUM (BEAKER) (test code = 381) 135 meq/L 136-145 L POTASSIUM (BEAKER) (test code = 379) 3.8 meq/L 3.5-5.1 CHLORIDE (BEAKER) (test code = 382) 100 meq/L 98-107 CO2 (BEAKER) (test code = 355) 25 meq/L 22-29 BLOOD UREA NITROGEN (BEAKER) (test code = 354) 26 mg/dL 7-21 H CREATININE (BEAKER) (test code = 358) 3.64 mg/dL 0.57-1.25 H GLUCOSE RANDOM (BEAKER) (test code = 652) 118 mg/dL 70-105 H CALCIUM (BEAKER) (test code = 697) 9.0 mg/dL 8.4-10.2 EGFR (BEAKER) (test code = 1092) 19 mL/min/1.73 sq m ESTIMATED GFR IS NOT ACCURATE CREATININE CLEARANCE IN PREDICTING GLOMERULAR FILTRATION RATE. ESTIMATED GFR IS NOT APPLICABLE FOR DIALYSIS PATIENTS. Specimen markedly ictericCBC W/PLT COUNT & AUTO [id number] 04:10:00 * Test Item Value Reference Range Interpretation Comments WHITE BLOOD CELL COUNT (BEAKER) (test code = 775) 18.5 K/ L 3.5- 10.5 H RED BLOOD CELL COUNT (BEAKER) (test code = 761) 2.04 M/ L 4.63-6 .08 L HEMOGLOBIN (BEAKER) (test code = 410) 7.1 GM/DL 13.7-17.5 L HEMATOCRIT (BEAKER) (test code = 411) 21.8 % 40.1-51.0 L MEAN CORPUSCULAR VOLUME (BEAKER) (test code = 753) 106.9 fL 79. 0-92.2 H MEAN CORPUSCULAR HEMOGLOBIN (BEAKER) (test code = 751) 34.8 pg 25.7-32.2 H MEAN CORPUSCULAR HEMOGLOBIN CONC (BEAKER) (test code = 752) 32.6 GM/DL 32.3-36.5 RED CELL DISTRIBUTION WIDTH (BEAKER) (test code = 412) 17.0 % 11.6-14.4 H PLATELET COUNT (BEAKER) (test code = 756) 184 K/CU MM 150-450 MEAN PLATELET VOLUME (BEAKER) (test code = 754) 10.4 fL 9.4-12 .4 NUCLEATED RED BLOOD CELLS (BEAKER) (test code = 413) 0 /100 WBC 0 -0 NEUTROPHILS RELATIVE PERCENT (BEAKER) (test code = 429) 80 % LYMPHOCYTES RELATIVE PERCENT (BEAKER) (test code = 430) 6 % MONOCYTES RELATIVE PERCENT (BEAKER) (test code = 431) 7 % EOSINOPHILS RELATIVE PERCENT (BEAKER) (test code = 432) 4 % BASOPHILS RELATIVE PERCENT (BEAKER) (test code = 437) 0 % NEUTROPHILS ABSOLUTE COUNT (BEAKER) (test code = 670) 14.85 K/ L 1.78-5.38 H LYMPHOCYTES ABSOLUTE COUNT (BEAKER) (test code = 414) 1.03 K/ L 1.32-3.57 L MONOCYTES ABSOLUTE COUNT (BEAKER) (test code = 415) 1.36 K/ L 0. 30-0.82 H EOSINOPHILS ABSOLUTE COUNT (BEAKER) (test code = 416) 0.75 K/ L 0.04-0.54 H BASOPHILS ABSOLUTE COUNT (BEAKER) (test code = 417) 0.08 K/ L 0. 01-0.08 IMMATURE GRANULOCYTES-RELATIVE PERCENT (BEAKER) (test code = 2801) 2 % 0-1 H PROTHROMBIN [id number] 04:07:00* Test Item Value Reference Range Interpretation Comments PROTIME (BEAKER) (test code = 759) 20.9 seconds 11.9-14.2 H INR (BEAKER) (test code = 370) 1.9 <=5.9 Effective 07/24/2018: PT Reference Range ChangeNew: 11.9-14.2 Previous: 11.7-14. 7RECOMMENDED COUMADIN/WARFARIN INR THERAPY RANGESSTANDARD DOSE: 2.0-3.0 Include s: PROPHYLAXIS for venous thrombosis, systemic embolization; TREATMENT for venou s thrombosis and/or pulmonary embolus.HIGH RISK: Target INR is 2.5-3.5 for patie nts wiht mechanical heart valves.BLOOD [id number] 20:01:00* Test Item Value Reference Range Interpretation Comments CULTURE (BEAKER) (test code = 1095) No growth in 5 days BLOOD [id number] 20:01:00* Test Item Value Reference Range Interpretation Comments CULTURE (BEAKER) (test code = 1095) No growth in 5 days U/S, [id number] 16:58:00Worsening leukocytosis, to rule out SBP. Please do not remove >3 LReason for exam:->ascites, rule out SBPFINAL REPORT Paracentesis dated 10/27/2018 Procedure: Ultrasound-guided paracentesis. Preprocedure diagnosis: Ascites Postprocedure diagnosis: Ascites Conscious sedation: None. Radiologist: Keith Garcia M.D. Manager Data Warehousing: None Anesthesia: 1% Xylocaine mixed with sodium bicarbonate local anesthesia. Te chnique: After obtaining informed consent, ultrasound-guided paracentesis was p erformed under usual sterile technique. Using a 5 [place] drainage catheter, punc ture was made in the right lower quadrant abdomen. Approximately 2000 cc of mayra r yellowish fluid was removed. Patient tolerated the procedure well without comp lication. Complication: None Graft/Implant: None Estimated Blood Loss: None Impr ession: Ultrasound-guided paracentesis. Signed: Keith Garcia Verified Da te/Time: 10/27/2018 16:58:17 Reading Location: [facility] C013Y CT Body Reading [facility] [id number] 16:58:00Interface, External Ris In - 10/27/2018 5:00 PM CDTFINAL REPORT Paracentesis dated 10/27/2018 Procedure: Ultrasound-guided paracentesis. Preprocedure diagnosis: Ascites Postprocedure diagnosis: Ascites Conscious sedation: None. Radiologist: Keith Garcia M.D. Manager Data Warehousing: None Anesthesia: 1% Xylocaine mixed with sodium bicarbonate local anesthesia. Technique: After obtaining informed consent, ultrasound-guided paracentesis was performed under usual sterile technique. Using a 5 [place] drainage catheter, puncture was made in the right lower quadrant abdomen. Approximately 2000 cc of clear yellowish fluid was removed. Patient tolerated the procedure well without complication. Complication: None Graft/Implant: None Estimated Blood Loss: None Impression: Ultrasound-guided paracentesis. Signed: Keith Garcia Verified Date/Time: 10/27/2018 16:58:17 Reading Location: [facility] C013Y CT [facility] [id number] 16:24:00* Test Item Value Reference Range Interpretation Comments Appearance (test code = 9335-1) Slightly Hazy Clear A Color (test code = 6824-7) [place] Colorless, Straw A RBCs (test code = 02360-8) 309 <=1 /cu mm H Adjusted WBC Count (test code = 05151-0) 147 <=5 /cu mm H Lining Cells (test code = 47223-6) 54 <=1 /cu mm H % Segs (test code = 35338-3) 10 % % Lymphs (test code = 01360-7) 18 % % Monos (test code = 32208-1) 72 % % Eos (test code = 48459-1) 0 % % Baso (test code = 62162-2) 0 % Container Body Fluid (test code = 2873) EDTA Tube Lab Interpretation (test code = 17476-1) [facility] WITH [id number] 16:24:00* Test Item Value Reference Range Interpretation Comments APPEARANCE FLUID (BEAKER) (test code = 510) Slightly Hazy Clear A COLOR FLUID (BEAKER) (test code = 511) [place] Colorless, Stra w A RBC FLUID (BEAKER) (test code = 513) 309 /cu mm <=1 H ADJUSTED WBC FLUID (BEAKER) (test code = 1691) 147 /cu mm <=5 H LINING CELLS (BEAKER) (test code = 1590) 54 /cu mm <=1 H NEUTROPHILS FLUID (BEAKER) (test code = 1656) 10 % LYMPHS FLUID (BEAKER) (test code = 488) 18 % MONO/MACROPHAGE FLUID (BEAKER) (test code = 489) 72 % EOSINOPHILS FLUID (BEAKER) (test code = 491) 0 % BASO FLUID (BEAKER) (test code = 492) 0 % CONTAINER BODY FLUID (BEAKER) (test code = 2873) EDTA Tube LACTIC ACID, [id number] 13:51:00* Test Item Value Reference Range Interpretation Comments LACTATE BLOOD VENOUS (2) (BEAKER) (test code = 2872) 0.8 mmol/L 0 .5-2.2 Sepsis screeningSpecimen markedly ictericBASIC METABOLIC [id number] 05:53:00* Test Item Value Reference Range Interpretation Comments SODIUM (BEAKER) (test code = 381) 137 meq/L 136-145 POTASSIUM (BEAKER) (test code = 379) 3.6 meq/L 3.5-5.1 CHLORIDE (BEAKER) (test code = 382) 100 meq/L 98-107 CO2 (BEAKER) (test code = 355) 24 meq/L 22-29 BLOOD UREA NITROGEN (BEAKER) (test code = 354) 21 mg/dL 7-21 CREATININE (BEAKER) (test code = 358) 3.57 mg/dL 0.57-1.25 H GLUCOSE RANDOM (BEAKER) (test code = 652) 140 mg/dL 70-105 H CALCIUM (BEAKER) (test code = 697) 9.1 mg/dL 8.4-10.2 EGFR (BEAKER) (test code = 1092) 19 mL/min/1.73 sq m ESTIMATED GFR IS NOT ACCURATE CREATININE CLEARANCE IN PREDICTING GLOMERULAR FILTRATION RATE. ESTIMATED GFR IS NOT APPLICABLE FOR DIALYSIS PATIENTS. Specimen markedly ictericHEPATIC FUNCTION [id number] 05:51:00* Test Item Value Reference Range Interpretation Comments TOTAL PROTEIN (BEAKER) (test code = 770) 6.3 gm/dL 6.0-8.3 ALBUMIN (BEAKER) (test code = 1145) 3.9 g/dL 3.5-5.0 BILIRUBIN TOTAL (BEAKER) (test code = 377) 47.8 mg/dL 0.2-1.2 H BILIRUBIN DIRECT (BEAKER) (test code = 706) 33.8 mg/dL 0.1-0.5 H ALKALINE PHOSPHATASE (BEAKER) (test code = 346) 118 U/L 40-150 AST (SGOT) (BEAKER) (test code = 353) 112 U/L 5-34 H ALT (SGPT) (BEAKER) (test code = 347) 30 U/L 6-55 Specimen markedly ictericPROTHROMBIN TIME/[id number] 05:07:00* Test Item Value Reference Range Interpretation Comments PROTIME (BEAKER) (test code = 759) 20.9 seconds 11.9-14.2 H INR (BEAKER) (test code = 370) 1.9 <=5.9 Effective 07/24/2018: PT Reference Range ChangeNew: 11.9-14.2 Previous: 11.7-14. 7RECOMMENDED COUMADIN/WARFARIN INR THERAPY RANGESSTANDARD DOSE: 2.0-3.0 Include s: PROPHYLAXIS for venous thrombosis, systemic embolization; TREATMENT for venou s thrombosis and/or pulmonary embolus.HIGH RISK: Target INR is 2.5-3.5 for patie nts wiht mechanical heart valves.CBC W/PLT COUNT & AUTO [id number] 04:52:00* Test Item Value Reference Range Interpretation Comments WHITE BLOOD CELL COUNT (BEAKER) (test code = 775) 18.2 K/ L 3.5- 10.5 H RED BLOOD CELL COUNT (BEAKER) (test code = 761) 2.20 M/ L 4.63-6 .08 L HEMOGLOBIN (BEAKER) (test code = 410) 7.6 GM/DL 13.7-17.5 L HEMATOCRIT (BEAKER) (test code = 411) 23.7 % 40.1-51.0 L MEAN CORPUSCULAR VOLUME (BEAKER) (test code = 753) 107.7 fL 79. 0-92.2 H MEAN CORPUSCULAR HEMOGLOBIN (BEAKER) (test code = 751) 34.5 pg 25.7-32.2 H MEAN CORPUSCULAR HEMOGLOBIN CONC (BEAKER) (test code = 752) 32.1 GM/DL 32.3-36.5 L RED CELL DISTRIBUTION WIDTH (BEAKER) (test code = 412) 17.2 % 11.6-14.4 H PLATELET COUNT (BEAKER) (test code = 756) 196 K/CU MM 150-450 MEAN PLATELET VOLUME (BEAKER) (test code = 754) 10.2 fL 9.4-12 .4 NUCLEATED RED BLOOD CELLS (BEAKER) (test code = 413) 0 /100 WBC 0 -0 NEUTROPHILS RELATIVE PERCENT (BEAKER) (test code = 429) 80 % LYMPHOCYTES RELATIVE PERCENT (BEAKER) (test code = 430) 6 % MONOCYTES RELATIVE PERCENT (BEAKER) (test code = 431) 7 % EOSINOPHILS RELATIVE PERCENT (BEAKER) (test code = 432) 4 % BASOPHILS RELATIVE PERCENT (BEAKER) (test code = 437) 0 % NEUTROPHILS ABSOLUTE COUNT (BEAKER) (test code = 670) 14.63 K/ L 1.78-5.38 H LYMPHOCYTES ABSOLUTE COUNT (BEAKER) (test code = 414) 1.11 K/ L 1.32-3.57 L MONOCYTES ABSOLUTE COUNT (BEAKER) (test code = 415) 1.31 K/ L 0. 30-0.82 H EOSINOPHILS ABSOLUTE COUNT (BEAKER) (test code = 416) 0.74 K/ L 0.04-0.54 H BASOPHILS ABSOLUTE COUNT (BEAKER) (test code = 417) 0.08 K/ L 0. 01-0.08 IMMATURE GRANULOCYTES-RELATIVE PERCENT (BEAKER) (test code = 2801) 2 % 0-1 H U/S, ABDOMINAL, [id number] 13:11:00Abdomen limited area? Add comment if clarification is needed.->LiverReason for exam:->please assess ascitic fluid volumeFINAL REPORT ULTRASOUND ABDOMEN LIMITED HISTORY: Ascites, assess for volume of ascites COMPARISON: Ultrasound abdomen of 10/17/2018 TECHNIQUE: Ultrasound of the abdomen was limited to the evaluation of the volume of ascites. FINDINGS: There is mild ascites in the right upper quadrant, right lower quadrant, and midline in the abdomen. No significant ascites in the left abdomen. Signed: Kirt Sheffield Verified Date/Time: 10/26/2018 13:11:32 Reading Location: [address] Transitional Reading Room abdomen [id number] 13:11:00Interface, External Ris In - 10/26/2018 1:13 PM CDTFINAL REPORT ULTRASOUND ABDOMEN LIMITED HISTORY: Ascites, assess for volume of ascites COMPARISON: Ultrasound abdomen of 10/17/2018 TECHNIQUE: Ultrasound of the abdomen was limited to the evaluation of the volume of ascites. FINDINGS: There is mild ascites in the right upper quadrant, right lower quadrant, and midline in the abdomen. No significant ascites in the left abdomen. Signed: Kirt Sheffield Verified Date/Time: 10/26/2018 13:11:32 Reading Location: [address] Transitional Reading [facility] [id number] 08:13:00* Test Item Value Reference Range Interpretation Comments SODIUM (BEAKER) (test code = 381) 136 meq/L 136-145 POTASSIUM (BEAKER) (test code = 379) 3.5 meq/L 3.5-5.1 CHLORIDE (BEAKER) (test code = 382) 100 meq/L 98-107 CO2 (BEAKER) (test code = 355) 25 meq/L 22-29 BLOOD UREA NITROGEN (BEAKER) (test code = 354) 17 mg/dL 7-21 CREATININE (BEAKER) (test code = 358) 3.29 mg/dL 0.57-1.25 H GLUCOSE RANDOM (BEAKER) (test code = 652) 135 mg/dL 70-105 H CALCIUM (BEAKER) (test code = 697) 8.7 mg/dL 8.4-10.2 EGFR (BEAKER) (test code = 1092) 21 mL/min/1.73 sq m ESTIMATED GFR IS NOT ACCURATE CREATININE CLEARANCE IN PREDICTING GLOMERULAR FILTRATION RATE. ESTIMATED GFR IS NOT APPLICABLE FOR DIALYSIS PATIENTS. Specimen markedly ictericHEPATIC FUNCTION [id number] 08:13:00* Test Item Value Reference Range Interpretation Comments TOTAL PROTEIN (BEAKER) (test code = 770) 6.0 gm/dL 6.0-8.3 ALBUMIN (BEAKER) (test code = 1145) 3.5 g/dL 3.5-5.0 BILIRUBIN TOTAL (BEAKER) (test code = 377) 46.4 mg/dL 0.2-1.2 H BILIRUBIN DIRECT (BEAKER) (test code = 706) 31.4 mg/dL 0.1-0.5 H ALKALINE PHOSPHATASE (BEAKER) (test code = 346) 133 U/L 40-150 AST (SGOT) (BEAKER) (test code = 353) 123 U/L 5-34 H ALT (SGPT) (BEAKER) (test code = 347) 35 U/L 6-55 Specimen markedly ictericCBC W/PLT COUNT & AUTO [id number] 05:46:00 * Test Item Value Reference Range Interpretation Comments WHITE BLOOD CELL COUNT (BEAKER) (test code = 775) 16.5 K/ L 3.5- 10.5 H RED BLOOD CELL COUNT (BEAKER) (test code = 761) 2.17 M/ L 4.63-6 .08 L HEMOGLOBIN (BEAKER) (test code = 410) 7.5 GM/DL 13.7-17.5 L HEMATOCRIT (BEAKER) (test code = 411) 23.5 % 40.1-51.0 L MEAN CORPUSCULAR VOLUME (BEAKER) (test code = 753) 108.3 fL 79. 0-92.2 H MEAN CORPUSCULAR HEMOGLOBIN (BEAKER) (test code = 751) 34.6 pg 25.7-32.2 H MEAN CORPUSCULAR HEMOGLOBIN CONC (BEAKER) (test code = 752) 31.9 GM/DL 32.3-36.5 L RED CELL DISTRIBUTION WIDTH (BEAKER) (test code = 412) 17.1 % 11.6-14.4 H PLATELET COUNT (BEAKER) (test code = 756) 196 K/CU MM 150-450 MEAN PLATELET VOLUME (BEAKER) (test code = 754) 10.9 fL 9.4-12 .4 NUCLEATED RED BLOOD CELLS (BEAKER) (test code = 413) 0 /100 WBC 0 -0 NEUTROPHILS RELATIVE PERCENT (BEAKER) (test code = 429) 80 % LYMPHOCYTES RELATIVE PERCENT (BEAKER) (test code = 430) 6 % MONOCYTES RELATIVE PERCENT (BEAKER) (test code = 431) 8 % EOSINOPHILS RELATIVE PERCENT (BEAKER) (test code = 432) 4 % BASOPHILS RELATIVE PERCENT (BEAKER) (test code = 437) 1 % NEUTROPHILS ABSOLUTE COUNT (BEAKER) (test code = 670) 13.15 K/ L 1.78-5.38 H LYMPHOCYTES ABSOLUTE COUNT (BEAKER) (test code = 414) 1.02 K/ L 1.32-3.57 L MONOCYTES ABSOLUTE COUNT (BEAKER) (test code = 415) 1.32 K/ L 0. 30-0.82 H EOSINOPHILS ABSOLUTE COUNT (BEAKER) (test code = 416) 0.62 K/ L 0.04-0.54 H BASOPHILS ABSOLUTE COUNT (BEAKER) (test code = 417) 0.08 K/ L 0. 01-0.08 IMMATURE GRANULOCYTES-RELATIVE PERCENT (BEAKER) (test code = 2801) 2 % 0-1 H PROTHROMBIN [id number] 05:43:00* Test Item Value Reference Range Interpretation Comments PROTIME (BEAKER) (test code = 759) 21.2 seconds 11.9-14.2 H INR (BEAKER) (test code = 370) 1.9 <=5.9 Effective 07/24/2018: PT Reference Range ChangeNew: 11.9-14.2 Previous: 11.7-14. 7RECOMMENDED COUMADIN/WARFARIN INR THERAPY RANGESSTANDARD DOSE: 2.0-3.0 Include s: PROPHYLAXIS for venous thrombosis, systemic embolization; TREATMENT for venou s thrombosis and/or pulmonary embolus.HIGH RISK: Target INR is 2.5-3.5 for patie nts wiht mechanical heart valves.TISSUE [id number] 18:03:00Surgical Pathology Report Case: [id number] Authorizing Provider: Shy Parisi MD Collected: 10/19/2018 0856 Ordering Location: [address] Received: 10/21/2018 0830 Service Pathologist: Jefferson Martin MD Specimens: A) - Large Intestine, Colon - Cecum, HEALING ULCER BX B) - Polyp, Colon - Right/Ascending, TAKEN BY FRCP Given the history of an atypical l ymphoid infiltrate ([id number]), the current case was reviewed by Hematopathology and additional stains were performed on part A.Morphologic review, together with the immunohistochemical stains, reveal a mild chronic inflammatory infiltrate c omprised of admixed CD3+ T cells and rare admixed CD20+ PAX5+ B cells, and the K i-67 highlights a very low proliferative index (less than 5%) among the lymphoid component. The dense, atypical, B cell rich lymphoid infiltrate seen previously is not identified in the current specimen (prior case reviewed). 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 CPT: 98930; 97390 x 4Addendum electronica lly signed by Samina Arteaga MD on 10/25/2018 at 6:03 PMA. COLON, CECUM , HEALING ULCER, BIOPSY: - COLONIC MUCOSA WITH GRANULATION TISSUE, COMPATIBL E WITH HEALING ULCER - NEGATIVE FOR DYSPLASIA OR CARCINOMA (SEE COMMENT)B. C OLON, ASCENDING, POLYPECTOMY: - TUBULAR ADENOMA Signing Pathologist Dir ect Phone Line: [phone] signed by Jefferson Martin MD on 9 at 7:56 PMA. No dense lymphoid infiltrates are seen in the current biopsy. He matopathology consultation will be issued in an addendum.[id number] X 2Pre and postop diagnosis: gastrointestinal hemorrhage, unspecified gastrointestinal hemorrhage typeA. Large intestine, colon - cecum, healing ulcer biopsy; B. Polyp, colon - right/ascendingA. Received in formalin labeled with the patient's name, accessio n number and "large intestine, colon - cecum" are two irregular guajardo soft tissue fragments measuring 0.3 cm and 0.2 cm which are submitted in toto in A1. B. Rece ived in formalin labeled with the patient's name, accession number and "polyp, c olon - right/ascending" is a 0.2 cm guajardo soft tissue fragment which is submitted in toto in B1. CG/pl Performed.HEPATIC FUNCTION [id number] 04:53:00* Test Item Value Reference Range Interpretation Comments TOTAL PROTEIN (BEAKER) (test code = 770) 5.9 gm/dL 6.0-8.3 L ALBUMIN (BEAKER) (test code = 1145) 3.2 g/dL 3.5-5.0 L BILIRUBIN TOTAL (BEAKER) (test code = 377) 45.6 mg/dL 0.2-1.2 H BILIRUBIN DIRECT (BEAKER) (test code = 706) 31.9 mg/dL 0.1-0.5 H ALKALINE PHOSPHATASE (BEAKER) (test code = 346) 126 U/L 40-150 AST (SGOT) (BEAKER) (test code = 353) 143 U/L 5-34 H ALT (SGPT) (BEAKER) (test code = 347) 35 U/L 6-55 Specimen markedly ictericBASIC METABOLIC [id number] 04:53:00* Test Item Value Reference Range Interpretation Comments SODIUM (BEAKER) (test code = 381) 137 meq/L 136-145 POTASSIUM (BEAKER) (test code = 379) 3.4 meq/L 3.5-5.1 L CHLORIDE (BEAKER) (test code = 382) 101 meq/L 98-107 CO2 (BEAKER) (test code = 355) 25 meq/L 22-29 BLOOD UREA NITROGEN (BEAKER) (test code = 354) 15 mg/dL 7-21 CREATININE (BEAKER) (test code = 358) 3.07 mg/dL 0.57-1.25 H GLUCOSE RANDOM (BEAKER) (test code = 652) 140 mg/dL 70-105 H CALCIUM (BEAKER) (test code = 697) 9.1 mg/dL 8.4-10.2 EGFR (BEAKER) (test code = 1092) 23 mL/min/1.73 sq m ESTIMATED GFR IS NOT ACCURATE CREATININE CLEARANCE IN PREDICTING GLOMERULAR FILTRATION RATE. ESTIMATED GFR IS NOT APPLICABLE FOR DIALYSIS PATIENTS. Specimen markedly ictericPROTHROMBIN TIME/[id number] 04:27:00* Test Item Value Reference Range Interpretation Comments PROTIME (BEAKER) (test code = 759) 20.7 seconds 11.9-14.2 H INR (BEAKER) (test code = 370) 1.9 <=5.9 Effective 07/24/2018: PT Reference Range ChangeNew: 11.9-14.2 Previous: 11.7-14. 7RECOMMENDED COUMADIN/WARFARIN INR THERAPY RANGESSTANDARD DOSE: 2.0-3.0 Include s: PROPHYLAXIS for venous thrombosis, systemic embolization; TREATMENT for venou s thrombosis and/or pulmonary embolus.HIGH RISK: Target INR is 2.5-3.5 for patie nts wiht mechanical heart valves.CBC W/PLT COUNT & AUTO [id number] 04:13:00* Test Item Value Reference Range Interpretation Comments WHITE BLOOD CELL COUNT (BEAKER) (test code = 775) 15.4 K/ L 3.5- 10.5 H RED BLOOD CELL COUNT (BEAKER) (test code = 761) 2.28 M/ L 4.63-6 .08 L HEMOGLOBIN (BEAKER) (test code = 410) 8.0 GM/DL 13.7-17.5 L HEMATOCRIT (BEAKER) (test code = 411) 24.3 % 40.1-51.0 L MEAN CORPUSCULAR VOLUME (BEAKER) (test code = 753) 106.6 fL 79. 0-92.2 H MEAN CORPUSCULAR HEMOGLOBIN (BEAKER) (test code = 751) 35.1 pg 25.7-32.2 H MEAN CORPUSCULAR HEMOGLOBIN CONC (BEAKER) (test code = 752) 32.9 GM/DL 32.3-36.5 RED CELL DISTRIBUTION WIDTH (BEAKER) (test code = 412) 17.3 % 11.6-14.4 H PLATELET COUNT (BEAKER) (test code = 756) 204 K/CU MM 150-450 MEAN PLATELET VOLUME (BEAKER) (test code = 754) 10.2 fL 9.4-12 .4 NUCLEATED RED BLOOD CELLS (BEAKER) (test code = 413) 0 /100 WBC 0 -0 NEUTROPHILS RELATIVE PERCENT (BEAKER) (test code = 429) 76 % LYMPHOCYTES RELATIVE PERCENT (BEAKER) (test code = 430) 7 % MONOCYTES RELATIVE PERCENT (BEAKER) (test code = 431) 10 % EOSINOPHILS RELATIVE PERCENT (BEAKER) (test code = 432) 4 % BASOPHILS RELATIVE PERCENT (BEAKER) (test code = 437) 1 % NEUTROPHILS ABSOLUTE COUNT (BEAKER) (test code = 670) 11.74 K/ L 1.78-5.38 H LYMPHOCYTES ABSOLUTE COUNT (BEAKER) (test code = 414) 1.14 K/ L 1.32-3.57 L MONOCYTES ABSOLUTE COUNT (BEAKER) (test code = 415) 1.46 K/ L 0. 30-0.82 H EOSINOPHILS ABSOLUTE COUNT (BEAKER) (test code = 416) 0.64 K/ L 0.04-0.54 H BASOPHILS ABSOLUTE COUNT (BEAKER) (test code = 417) 0.07 K/ L 0. 01-0.08 IMMATURE GRANULOCYTES-RELATIVE PERCENT (BEAKER) (test code = 2801) 2 % 0-1 H BASIC METABOLIC [id number] 05:54:00* Test Item Value Reference Range Interpretation Comments SODIUM (BEAKER) (test code = 381) 137 meq/L 136-145 POTASSIUM (BEAKER) (test code = 379) 3.0 meq/L 3.5-5.1 L CHLORIDE (BEAKER) (test code = 382) 100 meq/L 98-107 CO2 (BEAKER) (test code = 355) 27 meq/L 22-29 BLOOD UREA NITROGEN (BEAKER) (test code = 354) 14 mg/dL 7-21 CREATININE (BEAKER) (test code = 358) 2.89 mg/dL 0.57-1.25 H GLUCOSE RANDOM (BEAKER) (test code = 652) 108 mg/dL 70-105 H CALCIUM (BEAKER) (test code = 697) 9.1 mg/dL 8.4-10.2 EGFR (BEAKER) (test code = 1092) 24 mL/min/1.73 sq m ESTIMATED GFR IS NOT ACCURATE CREATININE CLEARANCE IN PREDICTING GLOMERULAR FILTRATION RATE. ESTIMATED GFR IS NOT APPLICABLE FOR DIALYSIS PATIENTS. Specimen markedly ictericHEPATIC FUNCTION [id number] 05:54:00* Test Item Value Reference Range Interpretation Comments TOTAL PROTEIN (BEAKER) (test code = 770) 6.1 gm/dL 6.0-8.3 ALBUMIN (BEAKER) (test code = 1145) 3.4 g/dL 3.5-5.0 L BILIRUBIN TOTAL (BEAKER) (test code = 377) 46.0 mg/dL 0.2-1.2 H BILIRUBIN DIRECT (BEAKER) (test code = 706) 32.2 mg/dL 0.1-0.5 H ALKALINE PHOSPHATASE (BEAKER) (test code = 346) 127 U/L 40-150 AST (SGOT) (BEAKER) (test code = 353) 119 U/L 5-34 H ALT (SGPT) (BEAKER) (test code = 347) 31 U/L 6-55 Specimen markedly [id number] 05:53:00* Test Item Value Reference Range Interpretation Comments PHOSPHORUS (BEAKER) (test code = 604) 2.0 mg/dL 2.3-4.7 L [id number] 05:53:00* Test Item Value Reference Range Interpretation Comments MAGNESIUM (BEAKER) (test code = 627) 2.2 mg/dL 1.6-2.6 CBC W/PLT COUNT & AUTO [id number] 05:27:00* Test Item Value Reference Range Interpretation Comments WHITE BLOOD CELL COUNT (BEAKER) (test code = 775) 14.3 K/ L 3.5- 10.5 H RED BLOOD CELL COUNT (BEAKER) (test code = 761) 2.31 M/ L 4.63-6 .08 L HEMOGLOBIN (BEAKER) (test code = 410) 8.1 GM/DL 13.7-17.5 L HEMATOCRIT (BEAKER) (test code = 411) 24.4 % 40.1-51.0 L MEAN CORPUSCULAR VOLUME (BEAKER) (test code = 753) 105.6 fL 79. 0-92.2 H MEAN CORPUSCULAR HEMOGLOBIN (BEAKER) (test code = 751) 35.1 pg 25.7-32.2 H MEAN CORPUSCULAR HEMOGLOBIN CONC (BEAKER) (test code = 752) 33.2 GM/DL 32.3-36.5 RED CELL DISTRIBUTION WIDTH (BEAKER) (test code = 412) 18.2 % 11.6-14.4 H PLATELET COUNT (BEAKER) (test code = 756) 215 K/CU MM 150-450 MEAN PLATELET VOLUME (BEAKER) (test code = 754) 10.2 fL 9.4-12 .4 NUCLEATED RED BLOOD CELLS (BEAKER) (test code = 413) 0 /100 WBC 0 -0 NEUTROPHILS RELATIVE PERCENT (BEAKER) (test code = 429) 77 % LYMPHOCYTES RELATIVE PERCENT (BEAKER) (test code = 430) 7 % MONOCYTES RELATIVE PERCENT (BEAKER) (test code = 431) 10 % EOSINOPHILS RELATIVE PERCENT (BEAKER) (test code = 432) 3 % BASOPHILS RELATIVE PERCENT (BEAKER) (test code = 437) 0 % NEUTROPHILS ABSOLUTE COUNT (BEAKER) (test code = 670) 10.99 K/ L 1.78-5.38 H LYMPHOCYTES ABSOLUTE COUNT (BEAKER) (test code = 414) 0.95 K/ L 1.32-3.57 L MONOCYTES ABSOLUTE COUNT (BEAKER) (test code = 415) 1.48 K/ L 0. 30-0.82 H EOSINOPHILS ABSOLUTE COUNT (BEAKER) (test code = 416) 0.47 K/ L 0.04-0.54 BASOPHILS ABSOLUTE COUNT (BEAKER) (test code = 417) 0.06 K/ L 0. 01-0.08 IMMATURE GRANULOCYTES-RELATIVE PERCENT (BEAKER) (test code = 2801) 2 % 0-1 H PROTHROMBIN [id number] 05:27:00* Test Item Value Reference Range Interpretation Comments PROTIME (BEAKER) (test code = 759) 20.7 seconds 11.9-14.2 H INR (BEAKER) (test code = 370) 1.9 <=5.9 Effective 07/24/2018: PT Reference Range ChangeNew: 11.9-14.2 Previous: 11.7-14. 7RECOMMENDED COUMADIN/WARFARIN INR THERAPY RANGESSTANDARD DOSE: 2.0-3.0 Include s: PROPHYLAXIS for venous thrombosis, systemic embolization; TREATMENT for venou s thrombosis and/or pulmonary embolus.HIGH RISK: Target INR is 2.5-3.5 for patie nts wiht mechanical heart valves.BASIC METABOLIC [id number] 11:14:00* Test Item Value Reference Range Interpretation Comments SODIUM (BEAKER) (test code = 381) 137 meq/L 136-145 POTASSIUM (BEAKER) (test code = 379) 3.2 meq/L 3.5-5.1 L CHLORIDE (BEAKER) (test code = 382) 102 meq/L 98-107 CO2 (BEAKER) (test code = 355) 25 meq/L 22-29 BLOOD UREA NITROGEN (BEAKER) (test code = 354) 14 mg/dL 7-21 CREATININE (BEAKER) (test code = 358) 2.76 mg/dL 0.57-1.25 H GLUCOSE RANDOM (BEAKER) (test code = 652) 110 mg/dL 70-105 H CALCIUM (BEAKER) (test code = 697) 9.0 mg/dL 8.4-10.2 EGFR (BEAKER) (test code = 1092) 26 mL/min/1.73 sq m ESTIMATED GFR IS NOT ACCURATE CREATININE CLEARANCE IN PREDICTING GLOMERULAR FILTRATION RATE. ESTIMATED GFR IS NOT APPLICABLE FOR DIALYSIS PATIENTS. ADD-ONSpecimen markedly ictericMISCELLANEOUS LAB [id number] 07:36:00* Test Item Value Reference Range Interpretation Comments SCAN RESULT (test code = 1330105) HEPATIC FUNCTION [id number] 05:32:00* Test Item Value Reference Range Interpretation Comments TOTAL PROTEIN (BEAKER) (test code = 770) 5.8 gm/dL 6.0-8.3 L ALBUMIN (BEAKER) (test code = 1145) 3.2 g/dL 3.5-5.0 L BILIRUBIN TOTAL (BEAKER) (test code = 377) > mg/dL 0.2-1.2 H BILIRUBIN DIRECT (BEAKER) (test code = 706) > mg/dL 0.1-0.5 H ALKALINE PHOSPHATASE (BEAKER) (test code = 346) 117 U/L 40-150 AST (SGOT) (BEAKER) (test code = 353) 121 U/L 5-34 H ALT (SGPT) (BEAKER) (test code = 347) 33 U/L 6-55 Specimen markedly [id number] 05:21:00* Test Item Value Reference Range Interpretation Comments PHOSPHORUS (BEAKER) (test code = 604) 2.2 mg/dL 2.3-4.7 L [id number] 05:21:00* Test Item Value Reference Range Interpretation Comments MAGNESIUM (BEAKER) (test code = 627) 2.2 mg/dL 1.6-2.6 PROTHROMBIN [id number] 05:00:00* Test Item Value Reference Range Interpretation Comments PROTIME (BEAKER) (test code = 759) 21.4 seconds 11.9-14.2 H INR (BEAKER) (test code = 370) 2.0 <=5.9 Effective 07/24/2018: PT Reference Range ChangeNew: 11.9-14.2 Previous: 11.7-14. 7RECOMMENDED COUMADIN/WARFARIN INR THERAPY RANGESSTANDARD DOSE: 2.0-3.0 Include s: PROPHYLAXIS for venous thrombosis, systemic embolization; TREATMENT for venou s thrombosis and/or pulmonary embolus.HIGH RISK: Target INR is 2.5-3.5 for patie nts wiht mechanical heart valves.CBC W/PLT COUNT & AUTO [id number] 04:51:00* Test Item Value Reference Range Interpretation Comments WHITE BLOOD CELL COUNT (BEAKER) (test code = 775) 13.2 K/ L 3.5- 10.5 H RED BLOOD CELL COUNT (BEAKER) (test code = 761) 2.14 M/ L 4.63-6 .08 L HEMOGLOBIN (BEAKER) (test code = 410) 7.7 GM/DL 13.7-17.5 L HEMATOCRIT (BEAKER) (test code = 411) 22.4 % 40.1-51.0 L MEAN CORPUSCULAR VOLUME (BEAKER) (test code = 753) 104.7 fL 79. 0-92.2 H MEAN CORPUSCULAR HEMOGLOBIN (BEAKER) (test code = 751) 36.0 pg 25.7-32.2 H MEAN CORPUSCULAR HEMOGLOBIN CONC (BEAKER) (test code = 752) 34.4 GM/DL 32.3-36.5 RED CELL DISTRIBUTION WIDTH (BEAKER) (test code = 412) 18.4 % 11.6-14.4 H PLATELET COUNT (BEAKER) (test code = 756) 185 K/CU MM 150-450 MEAN PLATELET VOLUME (BEAKER) (test code = 754) 10.4 fL 9.4-12 .4 NUCLEATED RED BLOOD CELLS (BEAKER) (test code = 413) 0 /100 WBC 0 -0 NEUTROPHILS RELATIVE PERCENT (BEAKER) (test code = 429) 79 % LYMPHOCYTES RELATIVE PERCENT (BEAKER) (test code = 430) 5 % MONOCYTES RELATIVE PERCENT (BEAKER) (test code = 431) 11 % EOSINOPHILS RELATIVE PERCENT (BEAKER) (test code = 432) 3 % BASOPHILS RELATIVE PERCENT (BEAKER) (test code = 437) 0 % NEUTROPHILS ABSOLUTE COUNT (BEAKER) (test code = 670) 10.40 K/ L 1.78-5.38 H LYMPHOCYTES ABSOLUTE COUNT (BEAKER) (test code = 414) 0.68 K/ L 1.32-3.57 L MONOCYTES ABSOLUTE COUNT (BEAKER) (test code = 415) 1.43 K/ L 0. 30-0.82 H EOSINOPHILS ABSOLUTE COUNT (BEAKER) (test code = 416) 0.34 K/ L 0.04-0.54 BASOPHILS ABSOLUTE COUNT (BEAKER) (test code = 417) 0.05 K/ L 0. 01-0.08 IMMATURE GRANULOCYTES-RELATIVE PERCENT (BEAKER) (test code = 2801) 2 % 0-1 H BLOOD [id number] 20:01:00* Test Item Value Reference Range Interpretation Comments CULTURE (BEAKER) (test code = 1095) No growth in 5 days BLOOD [id number] 20:01:00* Test Item Value Reference Range Interpretation Comments CULTURE (BEAKER) (test code = 1095) No growth in 5 days URINALYSIS W/ REFLEX URINE [id number] 17:08:00* Test Item Value Reference Range Interpretation Comments COLOR (BEAKER) (test code = 470) Dark Yellow CLARITY (BEAKER) (test code = 469) Clear SPECIFIC GRAVITY UA (BEAKER) (test code = 468) 1.005 1.001-1 .035 PH UA (BEAKER) (test code = 467) 6.5 5.0-8.0 PROTEIN UA (BEAKER) (test code = 464) Negative Negative GLUCOSE UA (BEAKER) (test code = 365) Negative Negative KETONES UA (BEAKER) (test code = 371) Negative Negative BILIRUBIN UA (BEAKER) (test code = 462) Positive Negative A BLOOD UA (BEAKER) (test code = 461) Negative Negative NITRITE UA (BEAKER) (test code = 465) Negative Negative LEUKOCYTE ESTERASE UA (BEAKER) (test code = 466) Negative Negat mumtaz UROBILINOGEN UA (BEAKER) (test code = 463) 0.2 mg/dL 0.2-1.0 RBC UA (BEAKER) (test code = 519) 1 /HPF WBC UA (BEAKER) (test code = 520) < /HPF MUCUS (BEAKER) (test code = 1574) Rare SOURCE(BEAKER) (test code = 2795) BASIC METABOLIC [id number] 10:18:00* Test Item Value Reference Range Interpretation Comments SODIUM (BEAKER) (test code = 381) 138 meq/L 136-145 POTASSIUM (BEAKER) (test code = 379) 3.5 meq/L 3.5-5.1 CHLORIDE (BEAKER) (test code = 382) 103 meq/L 98-107 CO2 (BEAKER) (test code = 355) 23 meq/L 22-29 BLOOD UREA NITROGEN (BEAKER) (test code = 354) 13 mg/dL 7-21 CREATININE (BEAKER) (test code = 358) 2.51 mg/dL 0.57-1.25 H GLUCOSE RANDOM (BEAKER) (test code = 652) 85 mg/dL 70-105 CALCIUM (BEAKER) (test code = 697) 8.9 mg/dL 8.4-10.2 EGFR (BEAKER) (test code = 1092) 29 mL/min/1.73 sq m ESTIMATED GFR IS NOT ACCURATE CREATININE CLEARANCE IN PREDICTING GLOMERULAR FILTRATION RATE. ESTIMATED GFR IS NOT APPLICABLE FOR DIALYSIS PATIENTS. Specimen markedly ictericCBC W/PLT COUNT & AUTO [id number] 09:06:00 * Test Item Value Reference Range Interpretation Comments WHITE BLOOD CELL COUNT (BEAKER) (test code = 775) 14.9 K/ L 3.5- 10.5 H RED BLOOD CELL COUNT (BEAKER) (test code = 761) 2.29 M/ L 4.63-6 .08 L HEMOGLOBIN (BEAKER) (test code = 410) 8.1 GM/DL 13.7-17.5 L HEMATOCRIT (BEAKER) (test code = 411) 24.1 % 40.1-51.0 L MEAN CORPUSCULAR VOLUME (BEAKER) (test code = 753) 105.2 fL 79. 0-92.2 H MEAN CORPUSCULAR HEMOGLOBIN (BEAKER) (test code = 751) 35.4 pg 25.7-32.2 H MEAN CORPUSCULAR HEMOGLOBIN CONC (BEAKER) (test code = 752) 33.6 GM/DL 32.3-36.5 RED CELL DISTRIBUTION WIDTH (BEAKER) (test code = 412) 18.4 % 11.6-14.4 H PLATELET COUNT (BEAKER) (test code = 756) 185 K/CU MM 150-450 MEAN PLATELET VOLUME (BEAKER) (test code = 754) 10.8 fL 9.4-12 .4 NUCLEATED RED BLOOD CELLS (BEAKER) (test code = 413) 0 /100 WBC 0 -0 (CELLAVISION MANUAL DIFF)[id number] 09:06:00* Test Item Value Reference Range Interpretation Comments NEUTROPHILS - REL (CELLAVISION)(BEAKER) (test code = 2816) 79 % LYMPHOCYTES - REL (CELLAVISION)(BEAKER) (test code = 2817) 9 % MONOCYTES - REL (CELLAVISION)(BEAKER) (test code = 2818) 8 % EOSINOPHILS - REL (CELLAVISION)(BEAKER) (test code = 2819) 1 % BANDS - REL (CELLAVISION)(BEAKER) (test code = 2826) 1 % 0 -10 ATYPICAL LYMPHOCYTES - REL (CELLAVISION)(BEAKER) (test code = 2829) 2 % 0-0 H NEUTROPHILS - ABS (CELLAVISION)(BEAKER) (test code = 2830) 11.77 K/ul 1.78-5.38 H LYMPHOCYTES - ABS (CELLAVISION)(BEAKER) (test code = 2831) 1.34 K/ul 1.32-3.57 MONOCYTES - ABS (CELLAVISION)(BEAKER) (test code = 2832) 1.19 K/uL 0.30-0.82 H EOSINOPHILS - ABS (CELLAVISION)(BEAKER) (test code = 2834) 0.15 K/uL 0.04-0.54 BANDS - ABS (CELLAVISION)(BEAKER) (test code = 2840) 0.15 K/uL 0 .00-0.80 ATYPICAL LYMPHOCYTES - ABS (CELLAVISION)(BEAKER) (test code = 2858) 0.30 K/uL 0.00-0.00 H TOTAL COUNTED (BEAKER) (test code = 1351) 100 SMUDGE CELLS (BEAKER) (test code = 1371) Present GIANT PLATELETS (BEAKER) (test code = 313) Present POLYCHROMATOPHILLIC RBCS(BEAKER) (test code = 478) 1+ few ANISOCYTOSIS (BEAKER) (test code = 961) 2+ moderate POIKILOCYTES (BEAKER) (test code = 966) 1+ few ALL CELLS (BEAKER) (test code = 474) 2+ moderate PLATELET CONCENTRATION (CELLAVISION)(BEAKER) (test code = 3438) Cheryl quate Received comment: User comments: Slide comments: HEPATIC FUNCTION PANEL 2018-10-22 06:38:00* Test Item Value Reference Range Interpretation Comments TOTAL PROTEIN (BEAKER) (test code = 770) 5.9 gm/dL 6.0-8.3 L ALBUMIN (BEAKER) (test code = 1145) 3.0 g/dL 3.5-5.0 L BILIRUBIN TOTAL (BEAKER) (test code = 377) 43.4 mg/dL 0.2-1.2 H BILIRUBIN DIRECT (BEAKER) (test code = 706) 31.4 mg/dL 0.1-0.5 H ALKALINE PHOSPHATASE (BEAKER) (test code = 346) 118 U/L 40-150 AST (SGOT) (BEAKER) (test code = 353) 147 U/L 5-34 H ALT (SGPT) (BEAKER) (test code = 347) 37 U/L 6-55 Specimen markedly ictericPROTHROMBIN TIME/[id number] 06:10:00* Test Item Value Reference Range Interpretation Comments PROTIME (BEAKER) (test code = 759) 22.2 seconds 11.9-14.2 H INR (BEAKER) (test code = 370) 2.1 <=5.9 Effective 07/24/2018: PT Reference Range ChangeNew: 11.9-14.2 Previous: 11.7-14. 7RECOMMENDED COUMADIN/WARFARIN INR THERAPY RANGESSTANDARD DOSE: 2.0-3.0 Include s: PROPHYLAXIS for venous thrombosis, systemic embolization; TREATMENT for venou s thrombosis and/or pulmonary embolus.HIGH RISK: Target INR is 2.5-3.5 for patie nts wiht mechanical heart valves.Peripheral Blood Smear - Path [id number] 15:06:00* Test Item Value Reference Range Interpretation Comments RBC Morphology (test code = 2846) Polychromasia WBC Morphology (test code = 2847) Toxic Granulation Pathologist Review (test code = 2640) Cell counts confirmed. Pathologist: (test code = 2849) Samina Arteaga M.D. (electronic si gnature) [facility] REVIEW 2018-10-21 15:06:00* Test Item Value Reference Range Interpretation Comments RBC MORPHOLOGY (BEAKER) (test code = 2846) Polychromasia WBC MORPHOLOGY (BEAKER) (test code = 2847) Toxic Granulation PERIPHERAL SMR REVIEW (BEAKER) (test code = 2640) Cell counts confi ed. [id number] (BEAKER) (test code = 2849) Colleen Arteaga M.D. (electronic signature) (CELLAVISION MANUAL DIFF)2018-10-21 09:57:00* Test Item Value Reference Range Interpretation Comments NEUTROPHILS - REL (CELLAVISION)(BEAKER) (test code = 2816) 77 % LYMPHOCYTES - REL (CELLAVISION)(BEAKER) (test code = 2817) 4 % MONOCYTES - REL (CELLAVISION)(BEAKER) (test code = 2818) 14 % EOSINOPHILS - REL (CELLAVISION)(BEAKER) (test code = 2819) 4 % BASOPHILS - REL (CELLAVISION)(BEAKER) (test code = 2820) 1 % NEUTROPHILS - ABS (CELLAVISION)(BEAKER) (test code = 2830) 11.01 K/ul 1.78-5.38 H LYMPHOCYTES - ABS (CELLAVISION)(BEAKER) (test code = 2831) 0.57 K/ul 1.32-3.57 L MONOCYTES - ABS (CELLAVISION)(BEAKER) (test code = 2832) 2.00 K/uL 0.30-0.82 H EOSINOPHILS - ABS (CELLAVISION)(BEAKER) (test code = 2834) 0.57 K/uL 0.04-0.54 H BASOPHILS - ABS (CELLAVISION)(BEAKER) (test code = 2835) 0.14 K/uL 0.01-0.08 H TOTAL COUNTED (BEAKER) (test code = 1351) 100 WBC MORPHOLOGY (BEAKER) (test code = 487) Normal PLT MORPHOLOGY (BEAKER) (test code = 486) Normal POLYCHROMATOPHILLIC RBCS(BEAKER) (test code = 478) 1+ few ANISOCYTOSIS (BEAKER) (test code = 961) 1+ few MACROCYTES (BEAKER) (test code = 964) 1+ few POIKILOCYTES (BEAKER) (test code = 966) 1+ few BASOPHILIC STIPPLING (BEAKER) (test code = 473) Present ARTIFACT (CELLAVISION)(BEAKER) (test code = 3432) Present PLATELET CONCENTRATION (CELLAVISION)(BEAKER) (test code = 3438) Cheryl quate Received comment: User comments: Slide comments: CBC W/PLT COUNT & AUTO [id number] 09:56:00* Test Item Value Reference Range Interpretation Comments WHITE BLOOD CELL COUNT (BEAKER) (test code = 775) 14.3 K/ L 3.5- 10.5 H RED BLOOD CELL COUNT (BEAKER) (test code = 761) 2.23 M/ L 4.63-6 .08 L HEMOGLOBIN (BEAKER) (test code = 410) 7.9 GM/DL 13.7-17.5 L HEMATOCRIT (BEAKER) (test code = 411) 23.5 % 40.1-51.0 L MEAN CORPUSCULAR VOLUME (BEAKER) (test code = 753) 105.4 fL 79. 0-92.2 H MEAN CORPUSCULAR HEMOGLOBIN (BEAKER) (test code = 751) 35.4 pg 25.7-32.2 H MEAN CORPUSCULAR HEMOGLOBIN CONC (BEAKER) (test code = 752) 33.6 GM/DL 32.3-36.5 RED CELL DISTRIBUTION WIDTH (BEAKER) (test code = 412) 18.6 % 11.6-14.4 H PLATELET COUNT (BEAKER) (test code = 756) 169 K/CU MM 150-450 MEAN PLATELET VOLUME (BEAKER) (test code = 754) 10.2 fL 9.4-12 .4 NUCLEATED RED BLOOD CELLS (BEAKER) (test code = 413) 0 /100 WBC 0 -0 BASIC METABOLIC [id number] 09:01:00* Test Item Value Reference Range Interpretation Comments SODIUM (BEAKER) (test code = 381) 135 meq/L 136-145 L POTASSIUM (BEAKER) (test code = 379) 3.6 meq/L 3.5-5.1 CHLORIDE (BEAKER) (test code = 382) 102 meq/L 98-107 CO2 (BEAKER) (test code = 355) 23 meq/L 22-29 BLOOD UREA NITROGEN (BEAKER) (test code = 354) 12 mg/dL 7-21 CREATININE (BEAKER) (test code = 358) 2.01 mg/dL 0.57-1.25 H GLUCOSE RANDOM (BEAKER) (test code = 652) 90 mg/dL 70-105 CALCIUM (BEAKER) (test code = 697) 8.3 mg/dL 8.4-10.2 L EGFR (BEAKER) (test code = 1092) 37 mL/min/1.73 sq m ESTIMATED GFR IS NOT ACCURATE CREATININE CLEARANCE IN PREDICTING GLOMERULAR FILTRATION RATE. ESTIMATED GFR IS NOT APPLICABLE FOR DIALYSIS PATIENTS. Specimen markedly ictericVITAMIN B12 AND [id number] 08:56:00* Test Item Value Reference Range Interpretation Comments VITAMIN B12 (BEAKER) (test code = 774) > pg/mL 213-816 H FOLATE (BEAKER) (test code = 362) 15.2 ng/mL >=7.0 2D Echo W/Doppler(CW/PW/Color)2018-10-21 08:44:03Ejection FractionSLEH ECHO HEARTLAB MKCKESSON CPACSInterface, External Ris In - 10/21/2018 8:44 AM CDTTransthoracic Echocardiography Report (TTE) Demographics Patient Name INDRA GALVAN Date of Study 10/20/2018 YAN CORDERO Gender Male Visit Number [id number] Race Unknown Room Number 743 Number Date of 1980 Referring Mandeep Taylor Physician Age 37 year(s) 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 Amount - 2 mlHeight: 72 inches Weight: 110.68 kg (244 lbs) BSA: 2.32 m^2 B NC: 33.09kg/m^2HR: 96 bpm BP: 113/61 mmHg Summary The left ventricle is chamber size (by vol index) is normal (male - LVED vol - 34-74ml/m2). Mild concentric LV hypertrophy. All of the LV segments contract normally . LVEF by New's metho d of disk assessment is normal (>60%) . [...] Mean Velocity: 0.93 m/s Mean Gradient: 4.22 mmH g LVOT Diameter: 2.08 cm LVOT VTI: 28.24 cm LVOT Area: 3.4 cm^2 LVOT SV:95.91 ml LVOT CO: 9.21 l/min LVOT CI: 3.97 l/min/m^2 [facility]RETIC[facility] [id number] 06:56:00* Test Item Value Reference Range Interpretation Comments RETICULOCYTE COUNT PCT (BEAKER) (test code = 575) 8.0 % 0.5- 1.8 H HEPATIC FUNCTION [id number] 06:35:00* Test Item Value Reference Range Interpretation Comments TOTAL PROTEIN (BEAKER) (test code = 770) 5.8 gm/dL 6.0-8.3 L ALBUMIN (BEAKER) (test code = 1145) 3.0 g/dL 3.5-5.0 L BILIRUBIN TOTAL (BEAKER) (test code = 377) 41.5 mg/dL 0.2-1.2 H BILIRUBIN DIRECT (BEAKER) (test code = 706) 29.7 mg/dL 0.1-0.5 H ALKALINE PHOSPHATASE (BEAKER) (test code = 346) 110 U/L 40-150 AST (SGOT) (BEAKER) (test code = 353) 152 U/L 5-34 H ALT (SGPT) (BEAKER) (test code = 347) 34 U/L 6-55 Specimen markedly [id number] 06:12:00* Test Item Value Reference Range Interpretation Comments HAPTOGLOBIN (BEAKER) (test code = 366) 67 mg/dL 14-258 PROTHROMBIN TIME/[id number] 05:26:00* Test Item Value Reference Range Interpretation Comments PROTIME (BEAKER) (test code = 759) 20.9 seconds 11.9-14.2 H INR (BEAKER) (test code = 370) 1.9 <=5.9 Effective 07/24/2018: PT Reference Range ChangeNew: 11.9-14.2 Previous: 11.7-14. 7RECOMMENDED COUMADIN/WARFARIN INR THERAPY RANGESSTANDARD DOSE: 2.0-3.0 Include s: PROPHYLAXIS for venous thrombosis, systemic embolization; TREATMENT for venou s thrombosis and/or pulmonary embolus.HIGH RISK: Target INR is 2.5-3.5 for patie nts wiht mechanical heart valves.LACTATE DEHYDROGENASE (LDH)2018-10-20 13:14:00 * Test Item Value Reference Range Interpretation Comments LACTATE DEHYDROGENASE (BEAKER) (test code = 635) 452 U/L 125-2 20 H BASIC METABOLIC [id number] 07:58:00* Test Item Value Reference Range Interpretation Comments SODIUM (BEAKER) (test code = 381) 137 meq/L 136-145 POTASSIUM (BEAKER) (test code = 379) 3.5 meq/L 3.5-5.1 CHLORIDE (BEAKER) (test code = 382) 103 meq/L 98-107 CO2 (BEAKER) (test code = 355) 24 meq/L 22-29 BLOOD UREA NITROGEN (BEAKER) (test code = 354) 11 mg/dL 7-21 CREATININE (BEAKER) (test code = 358) 1.79 mg/dL 0.57-1.25 H GLUCOSE RANDOM (BEAKER) (test code = 652) 124 mg/dL 70-105 H CALCIUM (BEAKER) (test code = 697) 8.4 mg/dL 8.4-10.2 EGFR (BEAKER) (test code = 1092) 42 mL/min/1.73 sq m ESTIMATED GFR IS NOT ACCURATE CREATININE CLEARANCE IN PREDICTING GLOMERULAR FILTRATION RATE. ESTIMATED GFR IS NOT APPLICABLE FOR DIALYSIS PATIENTS. Specimen markedly ictericHEPATIC FUNCTION [id number] 07:38:00* Test Item Value Reference Range Interpretation Comments TOTAL PROTEIN (BEAKER) (test code = 770) 6.4 gm/dL 6.0-8.3 ALBUMIN (BEAKER) (test code = 1145) 3.4 g/dL 3.5-5.0 L BILIRUBIN TOTAL (BEAKER) (test code = 377) 42.0 mg/dL 0.2-1.2 H BILIRUBIN DIRECT (BEAKER) (test code = 706) 31.0 mg/dL 0.1-0.5 H ALKALINE PHOSPHATASE (BEAKER) (test code = 346) 120 U/L 40-150 AST (SGOT) (BEAKER) (test code = 353) 120 U/L 5-34 H ALT (SGPT) (BEAKER) (test code = 347) 26 U/L 6-55 Specimen markedly [id number] 07:36:00* Test Item Value Reference Range Interpretation Comments MAGNESIUM (BEAKER) (test code = 627) 2.2 mg/dL 1.6-2.6 [id number] 07:36:00* Test Item Value Reference Range Interpretation Comments PHOSPHORUS (BEAKER) (test code = 604) 2.8 mg/dL 2.3-4.7 CBC W/PLT COUNT & AUTO [id number] 06:58:00* Test Item Value Reference Range Interpretation Comments WHITE BLOOD CELL COUNT (BEAKER) (test code = 775) 14.2 K/ L 3.5- 10.5 H RED BLOOD CELL COUNT (BEAKER) (test code = 761) 2.28 M/ L 4.63-6 .08 L HEMOGLOBIN (BEAKER) (test code = 410) 8.1 GM/DL 13.7-17.5 L HEMATOCRIT (BEAKER) (test code = 411) 24.0 % 40.1-51.0 L MEAN CORPUSCULAR VOLUME (BEAKER) (test code = 753) 105.3 fL 79. 0-92.2 H MEAN CORPUSCULAR HEMOGLOBIN (BEAKER) (test code = 751) 35.5 pg 25.7-32.2 H MEAN CORPUSCULAR HEMOGLOBIN CONC (BEAKER) (test code = 752) 33.8 GM/DL 32.3-36.5 RED CELL DISTRIBUTION WIDTH (BEAKER) (test code = 412) 18.8 % 11.6-14.4 H PLATELET COUNT (BEAKER) (test code = 756) 173 K/CU MM 150-450 MEAN PLATELET VOLUME (BEAKER) (test code = 754) 10.3 fL 9.4-12 .4 NUCLEATED RED BLOOD CELLS (BEAKER) (test code = 413) 0 /100 WBC 0 -0 NEUTROPHILS RELATIVE PERCENT (BEAKER) (test code = 429) 78 % LYMPHOCYTES RELATIVE PERCENT (BEAKER) (test code = 430) 6 % MONOCYTES RELATIVE PERCENT (BEAKER) (test code = 431) 12 % EOSINOPHILS RELATIVE PERCENT (BEAKER) (test code = 432) 2 % BASOPHILS RELATIVE PERCENT (BEAKER) (test code = 437) 0 % NEUTROPHILS ABSOLUTE COUNT (BEAKER) (test code = 670) 11.06 K/ L 1.78-5.38 H LYMPHOCYTES ABSOLUTE COUNT (BEAKER) (test code = 414) 0.83 K/ L 1.32-3.57 L MONOCYTES ABSOLUTE COUNT (BEAKER) (test code = 415) 1.73 K/ L 0. 30-0.82 H EOSINOPHILS ABSOLUTE COUNT (BEAKER) (test code = 416) 0.21 K/ L 0.04-0.54 BASOPHILS ABSOLUTE COUNT (BEAKER) (test code = 417) 0.04 K/ L 0. 01-0.08 IMMATURE GRANULOCYTES-RELATIVE PERCENT (BEAKER) (test code = 2801) 2 % 0-1 H PROTHROMBIN TIME/[id number] 06:50:00* Test Item Value Reference Range Interpretation Comments PROTIME (BEAKER) (test code = 759) 20.2 seconds 11.9-14.2 H INR (BEAKER) (test code = 370) 1.8 <=5.9 Effective 07/24/2018: PT Reference Range ChangeNew: 11.9-14.2 Previous: 11.7-14. 7RECOMMENDED COUMADIN/WARFARIN INR THERAPY RANGESSTANDARD DOSE: 2.0-3.0 Include s: PROPHYLAXIS for venous thrombosis, systemic embolization; TREATMENT for venou s thrombosis and/or pulmonary embolus.HIGH RISK: Target INR is 2.5-3.5 for patie nts wiht mechanical heart valves.CBC W/PLT COUNT & AUTO [id number] 22:22:00* Test Item Value Reference Range Interpretation Comments WHITE BLOOD CELL COUNT (BEAKER) (test code = 775) 13.8 K/ L 3.5- 10.5 H RED BLOOD CELL COUNT (BEAKER) (test code = 761) 2.35 M/ L 4.63-6 .08 L HEMOGLOBIN (BEAKER) (test code = 410) 8.3 GM/DL 13.7-17.5 L HEMATOCRIT (BEAKER) (test code = 411) 24.3 % 40.1-51.0 L MEAN CORPUSCULAR VOLUME (BEAKER) (test code = 753) 103.4 fL 79. 0-92.2 H MEAN CORPUSCULAR HEMOGLOBIN (BEAKER) (test code = 751) 35.3 pg 25.7-32.2 H MEAN CORPUSCULAR HEMOGLOBIN CONC (BEAKER) (test code = 752) 34.2 GM/DL 32.3-36.5 RED CELL DISTRIBUTION WIDTH (BEAKER) (test code = 412) 19.0 % 11.6-14.4 H PLATELET COUNT (BEAKER) (test code = 756) 173 K/CU MM 150-450 MEAN PLATELET VOLUME (BEAKER) (test code = 754) 10.3 fL 9.4-12 .4 NUCLEATED RED BLOOD CELLS (BEAKER) (test code = 413) 0 /100 WBC 0 -0 CBC W/PLT COUNT & AUTO [id number] 16:47:00* Test Item Value Reference Range Interpretation Comments WHITE BLOOD CELL COUNT (BEAKER) (test code = 775) 15.9 K/ L 3.5- 10.5 H RED BLOOD CELL COUNT (BEAKER) (test code = 761) 2.47 M/ L 4.63-6 .08 L HEMOGLOBIN (BEAKER) (test code = 410) 8.8 GM/DL 13.7-17.5 L HEMATOCRIT (BEAKER) (test code = 411) 26.0 % 40.1-51.0 L MEAN CORPUSCULAR VOLUME (BEAKER) (test code = 753) 105.3 fL 79. 0-92.2 H MEAN CORPUSCULAR HEMOGLOBIN (BEAKER) (test code = 751) 35.6 pg 25.7-32.2 H MEAN CORPUSCULAR HEMOGLOBIN CONC (BEAKER) (test code = 752) 33.8 GM/DL 32.3-36.5 RED CELL DISTRIBUTION WIDTH (BEAKER) (test code = 412) 18.8 % 11.6-14.4 H PLATELET COUNT (BEAKER) (test code = 756) 179 K/CU MM 150-450 MEAN PLATELET VOLUME (BEAKER) (test code = 754) 10.3 fL 9.4-12 .4 NUCLEATED RED BLOOD CELLS (BEAKER) (test code = 413) 0 /100 WBC 0 -0 CBC W/PLT COUNT & AUTO [id number] 09:23:00* Test Item Value Reference Range Interpretation Comments WHITE BLOOD CELL COUNT (BEAKER) (test code = 775) 14.3 K/ L 3.5- 10.5 H RED BLOOD CELL COUNT (BEAKER) (test code = 761) 2.26 M/ L 4.63-6 .08 L HEMOGLOBIN (BEAKER) (test code = 410) 7.9 GM/DL 13.7-17.5 L HEMATOCRIT (BEAKER) (test code = 411) 23.0 % 40.1-51.0 L MEAN CORPUSCULAR VOLUME (BEAKER) (test code = 753) 101.8 fL 79. 0-92.2 H MEAN CORPUSCULAR HEMOGLOBIN (BEAKER) (test code = 751) 35.0 pg 25.7-32.2 H MEAN CORPUSCULAR HEMOGLOBIN CONC (BEAKER) (test code = 752) 34.3 GM/DL 32.3-36.5 RED CELL DISTRIBUTION WIDTH (BEAKER) (test code = 412) 18.6 % 11.6-14.4 H PLATELET COUNT (BEAKER) (test code = 756) 175 K/CU MM 150-450 MEAN PLATELET VOLUME (BEAKER) (test code = 754) 10.2 fL 9.4-12 .4 NUCLEATED RED BLOOD CELLS (BEAKER) (test code = 413) 0 /100 WBC 0 -0 (CELLAVISION MANUAL DIFF)2018-10-19 09:23:00* Test Item Value Reference Range Interpretation Comments NEUTROPHILS - REL (CELLAVISION)(BEAKER) (test code = 2816) 80 % LYMPHOCYTES - REL (CELLAVISION)(BEAKER) (test code = 2817) 6 % MONOCYTES - REL (CELLAVISION)(BEAKER) (test code = 2818) 12 % EOSINOPHILS - REL (CELLAVISION)(BEAKER) (test code = 2819) 2 % NEUTROPHILS - ABS (CELLAVISION)(BEAKER) (test code = 2830) 11.44 K/ul 1.78-5.38 H LYMPHOCYTES - ABS (CELLAVISION)(BEAKER) (test code = 2831) 0.86 K/ul 1.32-3.57 L MONOCYTES - ABS (CELLAVISION)(BEAKER) (test code = 2832) 1.72 K/uL 0.30-0.82 H EOSINOPHILS - ABS (CELLAVISION)(BEAKER) (test code = 2834) 0.29 K/uL 0.04-0.54 TOTAL COUNTED (BEAKER) (test code = 1351) 100 WBC MORPHOLOGY (BEAKER) (test code = 487) Normal GIANT PLATELETS (BEAKER) (test code = 313) Present LARGE PLT(BEAKER) (test code = 2156) Present POLYCHROMATOPHILLIC RBCS(BEAKER) (test code = 478) 1+ few HYPOCHROMIA (BEAKER) (test code = 963) 2+ moderate ANISOCYTOSIS (BEAKER) (test code = 961) 1+ few MACROCYTES (BEAKER) (test code = 964) 1+ few POIKILOCYTES (BEAKER) (test code = 966) 1+ few OVALOCYTES (BEAKER) (test code = 477) 1+ few ARTIFACT (CELLAVISION)(BEAKER) (test code = 3432) Present PLATELET CONCENTRATION (CELLAVISION)(BEAKER) (test code = 3438) Cheryl quate Received comment: User comments: Slide comments: HEPATIC FUNCTION PANEL 2018-10-19 06:33:00* Test Item Value Reference Range Interpretation Comments TOTAL PROTEIN (BEAKER) (test code = 770) 6.4 gm/dL 6.0-8.3 ALBUMIN (BEAKER) (test code = 1145) 3.2 g/dL 3.5-5.0 L BILIRUBIN TOTAL (BEAKER) (test code = 377) 42.4 mg/dL 0.2-1.2 H BILIRUBIN DIRECT (BEAKER) (test code = 706) 29.3 mg/dL 0.1-0.5 H ALKALINE PHOSPHATASE (BEAKER) (test code = 346) 130 U/L 40-150 AST (SGOT) (BEAKER) (test code = 353) 120 U/L 5-34 H ALT (SGPT) (BEAKER) (test code = 347) 20 U/L 6-55 Specimen markedly [id number] 05:23:00* Test Item Value Reference Range Interpretation Comments MAGNESIUM (BEAKER) (test code = 627) 2.2 mg/dL 1.6-2.6 BASIC METABOLIC [id number] 05:23:00* Test Item Value Reference Range Interpretation Comments SODIUM (BEAKER) (test code = 381) 136 meq/L 136-145 POTASSIUM (BEAKER) (test code = 379) 2.9 meq/L 3.5-5.1 L CHLORIDE (BEAKER) (test code = 382) 98 meq/L 98-107 CO2 (BEAKER) (test code = 355) 28 meq/L 22-29 BLOOD UREA NITROGEN (BEAKER) (test code = 354) 10 mg/dL 7-21 CREATININE (BEAKER) (test code = 358) 1.87 mg/dL 0.57-1.25 H GLUCOSE RANDOM (BEAKER) (test code = 652) 124 mg/dL 70-105 H CALCIUM (BEAKER) (test code = 697) 8.3 mg/dL 8.4-10.2 L EGFR (BEAKER) (test code = 1092) 40 mL/min/1.73 sq m ESTIMATED GFR IS NOT ACCURATE CREATININE CLEARANCE IN PREDICTING GLOMERULAR FILTRATION RATE. ESTIMATED GFR IS NOT APPLICABLE FOR DIALYSIS PATIENTS. Specimen markedly [id number] 05:23:00* Test Item Value Reference Range Interpretation Comments PHOSPHORUS (BEAKER) (test code = 604) 1.6 mg/dL 2.3-4.7 L PROTHROMBIN [id number] 04:53:00* Test Item Value Reference Range Interpretation Comments PROTIME (BEAKER) (test code = 759) 19.6 seconds 11.9-14.2 H INR (BEAKER) (test code = 370) 1.8 <=5.9 RECOMMENDED COUMADIN/WARFARIN INR THERAPY RANGESSTANDARD DOSE: 2.0 - 3.0 Inclu herb: PROPHYLAXIS for venous thrombosis, systemic embolization; TREATMENT for giulia ous thrombosis and/or pulmonary embolus.HIGH RISK: Target INR is 2.5-3.5 for pat ients with mechanical heart valves.Urea Nitrogen, random [id number] 02:02:00* Test Item Value Reference Range Interpretation Comments Urea Nitrogen, Ur (test code = 3095-7) 120 mg/dL PHILLIP (test code = PHILLIP) Reference Range: No Normals [facility]atoriumCREATININE, RANDOM [id number] 02:02:00* Test Item Value Reference Range Interpretation Comments CREATININE URINE (BEAKER) (test code = 375) 44.3 mg/dL Reference Range: No NormalsSODIUM, RANDOM [id number] 02:02:00* Test Item Value Reference Range Interpretation Comments SODIUM URINE (BEAKER) (test code = 243) 93 meq/L Reference Range: No NormalsUREA NITROGEN, RANDOM [id number] 02:02:00* Test Item Value Reference Range Interpretation Comments UREA NITROGEN URINE (BEAKER) (test code = 538) 120 mg/dL Reference Range: No NormalsCBC W/PLT COUNT & AUTO [id number] 20:17:00* Test Item Value Reference Range Interpretation Comments WHITE BLOOD CELL COUNT (BEAKER) (test code = 775) 16.4 K/ L 3.5- 10.5 H RED BLOOD CELL COUNT (BEAKER) (test code = 761) 2.62 M/ L 4.63-6 .08 L HEMOGLOBIN (BEAKER) (test code = 410) 9.2 GM/DL 13.7-17.5 L HEMATOCRIT (BEAKER) (test code = 411) 26.7 % 40.1-51.0 L MEAN CORPUSCULAR VOLUME (BEAKER) (test code = 753) 101.9 fL 79. 0-92.2 H MEAN CORPUSCULAR HEMOGLOBIN (BEAKER) (test code = 751) 35.1 pg 25.7-32.2 H MEAN CORPUSCULAR HEMOGLOBIN CONC (BEAKER) (test code = 752) 34.5 GM/DL 32.3-36.5 RED CELL DISTRIBUTION WIDTH (BEAKER) (test code = 412) 18.5 % 11.6-14.4 H PLATELET COUNT (BEAKER) (test code = 756) 193 K/CU MM 150-450 MEAN PLATELET VOLUME (BEAKER) (test code = 754) 10.3 fL 9.4-12 .4 NUCLEATED RED BLOOD CELLS (BEAKER) (test code = 413) 0 /100 WBC 0 -0 (CELLAVISION MANUAL DIFF)2018-10-18 20:17:00* Test Item Value Reference Range Interpretation Comments NEUTROPHILS - REL (CELLAVISION)(BEAKER) (test code = 2816) 79 % LYMPHOCYTES - REL (CELLAVISION)(BEAKER) (test code = 2817) 4 % MONOCYTES - REL (CELLAVISION)(BEAKER) (test code = 2818) 12 % EOSINOPHILS - REL (CELLAVISION)(BEAKER) (test code = 2819) 1 % METAMYELOCYTES - REL (CELLAVISION)(BEAKER) (test code = 2821) 1 % 0-0 H PROMYELOCYTES - REL (CELLAVSION)(BEAKER) (test code = 2825) 1 % 0-0 H BANDS - REL (CELLAVISION)(BEAKER) (test code = 2826) 2 % 0 -10 NEUTROPHILS - ABS (CELLAVISION)(BEAKER) (test code = 2830) 12.96 K/ul 1.78-5.38 H LYMPHOCYTES - ABS (CELLAVISION)(BEAKER) (test code = 2831) 0.66 K/ul 1.32-3.57 L MONOCYTES - ABS (CELLAVISION)(BEAKER) (test code = 2832) 1.97 K/uL 0.30-0.82 H EOSINOPHILS - ABS (CELLAVISION)(BEAKER) (test code = 2834) 0.16 K/uL 0.04-0.54 METAMYELOCYTES - ABS (CELLAVISION)(BEAKER) (test code = 2836 ) 0.16 K/uL 0.00-0.00 H PROMYELOCYTES - ABS (CELLAVISION)(BEAKER) (test code = 2838) 0.16 K/uL 0.00-0.00 H BANDS - ABS (CELLAVISION)(BEAKER) (test code = 2840) 0.33 K/uL 0 .00-0.80 TOTAL COUNTED (BEAKER) (test code = 1351) 100 WBC MORPHOLOGY (BEAKER) (test code = 487) Normal PLT MORPHOLOGY (BEAKER) (test code = 486) Normal POLYCHROMATOPHILLIC RBCS(BEAKER) (test code = 478) 1+ few ARTIFACT (CELLAVISION)(BEAKER) (test code = 3432) Present PLATELET CONCENTRATION (CELLAVISION)(BEAKER) (test code = 3438) Cheryl quate Received comment: User comments: Slide comments: CBC W/PLT COUNT & AUTO [id number] 13:37:00* Test Item Value Reference Range Interpretation Comments WHITE BLOOD CELL COUNT (BEAKER) (test code = 775) 16.6 K/ L 3.5- 10.5 H RED BLOOD CELL COUNT (BEAKER) (test code = 761) 2.33 M/ L 4.63-6 .08 L HEMOGLOBIN (BEAKER) (test code = 410) 8.2 GM/DL 13.7-17.5 L HEMATOCRIT (BEAKER) (test code = 411) 24.0 % 40.1-51.0 L MEAN CORPUSCULAR VOLUME (BEAKER) (test code = 753) 103.0 fL 79. 0-92.2 H MEAN CORPUSCULAR HEMOGLOBIN (BEAKER) (test code = 751) 35.2 pg 25.7-32.2 H MEAN CORPUSCULAR HEMOGLOBIN CONC (BEAKER) (test code = 752) 34.2 GM/DL 32.3-36.5 RED CELL DISTRIBUTION WIDTH (BEAKER) (test code = 412) 18.7 % 11.6-14.4 H PLATELET COUNT (BEAKER) (test code = 756) 162 K/CU MM 150-450 MEAN PLATELET VOLUME (BEAKER) (test code = 754) 10.2 fL 9.4-12 .4 NUCLEATED RED BLOOD CELLS (BEAKER) (test code = 413) 0 /100 WBC 0 -0 (CELLAVISION MANUAL DIFF)2018-10-18 13:37:00* Test Item Value Reference Range Interpretation Comments NEUTROPHILS - REL (CELLAVISION)(BEAKER) (test code = 2816) 83 % LYMPHOCYTES - REL (CELLAVISION)(BEAKER) (test code = 2817) 4 % MONOCYTES - REL (CELLAVISION)(BEAKER) (test code = 2818) 11 % EOSINOPHILS - REL (CELLAVISION)(BEAKER) (test code = 2819) 1 % BASOPHILS - REL (CELLAVISION)(BEAKER) (test code = 2820) 1 % NEUTROPHILS - ABS (CELLAVISION)(BEAKER) (test code = 2830) 13.78 K/ul 1.78-5.38 H LYMPHOCYTES - ABS (CELLAVISION)(BEAKER) (test code = 2831) 0.66 K/ul 1.32-3.57 L MONOCYTES - ABS (CELLAVISION)(BEAKER) (test code = 2832) 1.83 K/uL 0.30-0.82 H EOSINOPHILS - ABS (CELLAVISION)(BEAKER) (test code = 2834) 0.17 K/uL 0.04-0.54 BASOPHILS - ABS (CELLAVISION)(BEAKER) (test code = 2835) 0.17 K/uL 0.01-0.08 H TOTAL COUNTED (BEAKER) (test code = 1351) 100 WBC MORPHOLOGY (BEAKER) (test code = 487) Normal PLT MORPHOLOGY (BEAKER) (test code = 486) Normal POLYCHROMATOPHILLIC RBCS(BEAKER) (test code = 478) 1+ few HYPOCHROMIA (BEAKER) (test code = 963) 1+ few BASOPHILIC STIPPLING (BEAKER) (test code = 473) Present ARTIFACT (CELLAVISION)(BEAKER) (test code = 3432) Present PLATELET CONCENTRATION (CELLAVISION)(BEAKER) (test code = 3438) Cheryl quate Received comment: User comments: Slide comments: CBC W/PLT COUNT & AUTO [id number] 10:50:00* Test Item Value Reference Range Interpretation Comments WHITE BLOOD CELL COUNT (BEAKER) (test code = 775) 16.6 K/ L 3.5- 10.5 H RED BLOOD CELL COUNT (BEAKER) (test code = 761) 2.26 M/ L 4.63-6 .08 L HEMOGLOBIN (BEAKER) (test code = 410) 7.9 GM/DL 13.7-17.5 L HEMATOCRIT (BEAKER) (test code = 411) 23.1 % 40.1-51.0 L MEAN CORPUSCULAR VOLUME (BEAKER) (test code = 753) 102.2 fL 79. 0-92.2 H MEAN CORPUSCULAR HEMOGLOBIN (BEAKER) (test code = 751) 35.0 pg 25.7-32.2 H MEAN CORPUSCULAR HEMOGLOBIN CONC (BEAKER) (test code = 752) 34.2 GM/DL 32.3-36.5 RED CELL DISTRIBUTION WIDTH (BEAKER) (test code = 412) 18.8 % 11.6-14.4 H PLATELET COUNT (BEAKER) (test code = 756) 168 K/CU MM 150-450 MEAN PLATELET VOLUME (BEAKER) (test code = 754) 10.4 fL 9.4-12 .4 NUCLEATED RED BLOOD CELLS (BEAKER) (test code = 413) 0 /100 WBC 0 -0 (CELLAVISION MANUAL DIFF)2018-10-18 10:50:00* Test Item Value Reference Range Interpretation Comments NEUTROPHILS - REL (CELLAVISION)(BEAKER) (test code = 2816) 83 % LYMPHOCYTES - REL (CELLAVISION)(BEAKER) (test code = 2817) 3 % MONOCYTES - REL (CELLAVISION)(BEAKER) (test code = 2818) 12 % EOSINOPHILS - REL (CELLAVISION)(BEAKER) (test code = 2819) 2 % NEUTROPHILS - ABS (CELLAVISION)(BEAKER) (test code = 2830) 13.78 K/ul 1.78-5.38 H LYMPHOCYTES - ABS (CELLAVISION)(BEAKER) (test code = 2831) 0.50 K/ul 1.32-3.57 L MONOCYTES - ABS (CELLAVISION)(BEAKER) (test code = 2832) 1.99 K/uL 0.30-0.82 H EOSINOPHILS - ABS (CELLAVISION)(BEAKER) (test code = 2834) 0.33 K/uL 0.04-0.54 TOTAL COUNTED (BEAKER) (test code = 1351) 100 MANUAL NRBC PER 100 CELLS (BEAKER) (test code = 1353) 1 /100 WBC 0-0 H WBC MORPHOLOGY (BEAKER) (test code = 487) Normal PLT MORPHOLOGY (BEAKER) (test code = 486) Normal POLYCHROMATOPHILLIC RBCS(BEAKER) (test code = 478) 1+ few ANISOCYTOSIS (BEAKER) (test code = 961) 1+ few MACROCYTES (BEAKER) (test code = 964) 1+ few POIKILOCYTES (BEAKER) (test code = 966) 1+ few ALL CELLS (BEAKER) (test code = 474) 1+ few BASOPHILIC STIPPLING (BEAKER) (test code = 473) Present ARTIFACT (CELLAVISION)(BEAKER) (test code = 3432) Present PLATELET CONCENTRATION (CELLAVISION)(BEAKER) (test code = 3438) Cheryl quate Received comment: User comments: Slide comments: LACTIC ACID, [id number] 07:43:00* Test Item Value Reference Range Interpretation Comments LACTATE BLOOD VENOUS (2) (BEAKER) (test code = 2872) 0.9 mmol/L 0 .5-2.2 Specimen slightly hemolyzed Specimen markedly ictericHEPATIC FUNCTION [id number] 06:45:00* Test Item Value Reference Range Interpretation Comments TOTAL PROTEIN (BEAKER) (test code = 770) 6.1 gm/dL 6.0-8.3 ALBUMIN (BEAKER) (test code = 1145) 2.9 g/dL 3.5-5.0 L BILIRUBIN TOTAL (BEAKER) (test code = 377) 39.8 mg/dL 0.2-1.2 H BILIRUBIN DIRECT (BEAKER) (test code = 706) 27.5 mg/dL 0.1-0.5 H ALKALINE PHOSPHATASE (BEAKER) (test code = 346) 145 U/L 40-150 AST (SGOT) (BEAKER) (test code = 353) 113 U/L 5-34 H ALT (SGPT) (BEAKER) (test code = 347) 19 U/L 6-55 Specimen markedly ictericBASIC METABOLIC [id number] 06:44:00* Test Item Value Reference Range Interpretation Comments SODIUM (BEAKER) (test code = 381) 134 meq/L 136-145 L POTASSIUM (BEAKER) (test code = 379) 3.7 meq/L 3.5-5.1 CHLORIDE (BEAKER) (test code = 382) 99 meq/L 98-107 CO2 (BEAKER) (test code = 355) 26 meq/L 22-29 BLOOD UREA NITROGEN (BEAKER) (test code = 354) 9 mg/dL 7-21 CREATININE (BEAKER) (test code = 358) 1.70 mg/dL 0.57-1.25 H GLUCOSE RANDOM (BEAKER) (test code = 652) 115 mg/dL 70-105 H CALCIUM (BEAKER) (test code = 697) 8.0 mg/dL 8.4-10.2 L EGFR (BEAKER) (test code = 1092) 45 mL/min/1.73 sq m ESTIMATED GFR IS NOT ACCURATE CREATININE CLEARANCE IN PREDICTING GLOMERULAR FILTRATION RATE. ESTIMATED GFR IS NOT APPLICABLE FOR DIALYSIS PATIENTS. Specimen markedly ictericPROTHROMBIN TIME/[id number] 05:44:00* Test Item Value Reference Range Interpretation Comments PROTIME (BEAKER) (test code = 759) 18.4 seconds 11.9-14.2 H INR (BEAKER) (test code = 370) 1.6 <=5.9 Effective 07/24/2018: PT Reference Range ChangeNew: 11.9-14.2 Previous: 11.7-14. 7RECOMMENDED COUMADIN/WARFARIN INR THERAPY RANGESSTANDARD DOSE: 2.0-3.0 Include s: PROPHYLAXIS for venous thrombosis, systemic embolization; TREATMENT for venou s thrombosis and/or pulmonary embolus.HIGH RISK: Target INR is 2.5-3.5 for patie nts wiht mechanical heart valves.CBC W/PLT COUNT & AUTO [id number] 21:39:00* Test Item Value Reference Range Interpretation Comments WHITE BLOOD CELL COUNT (BEAKER) (test code = 775) 17.6 K/ L 3.5- 10.5 H RED BLOOD CELL COUNT (BEAKER) (test code = 761) 2.42 M/ L 4.63-6 .08 L HEMOGLOBIN (BEAKER) (test code = 410) 8.4 GM/DL 13.7-17.5 L HEMATOCRIT (BEAKER) (test code = 411) 24.6 % 40.1-51.0 L MEAN CORPUSCULAR VOLUME (BEAKER) (test code = 753) 101.7 fL 79. 0-92.2 H MEAN CORPUSCULAR HEMOGLOBIN (BEAKER) (test code = 751) 34.7 pg 25.7-32.2 H MEAN CORPUSCULAR HEMOGLOBIN CONC (BEAKER) (test code = 752) 34.1 GM/DL 32.3-36.5 RED CELL DISTRIBUTION WIDTH (BEAKER) (test code = 412) 18.3 % 11.6-14.4 H PLATELET COUNT (BEAKER) (test code = 756) 171 K/CU MM 150-450 MEAN PLATELET VOLUME (BEAKER) (test code = 754) 10.0 fL 9.4-12 .4 NUCLEATED RED BLOOD CELLS (BEAKER) (test code = 413) 0 /100 WBC 0 -0 (CELLAVISION MANUAL DIFF)2018-10-17 21:39:00* Test Item Value Reference Range Interpretation Comments NEUTROPHILS - REL (CELLAVISION)(BEAKER) (test code = 2816) 84 % LYMPHOCYTES - REL (CELLAVISION)(BEAKER) (test code = 2817) 2 % MONOCYTES - REL (CELLAVISION)(BEAKER) (test code = 2818) 6 % EOSINOPHILS - REL (CELLAVISION)(BEAKER) (test code = 2819) 4 % BASOPHILS - REL (CELLAVISION)(BEAKER) (test code = 2820) 1 % METAMYELOCYTES - REL (CELLAVISION)(BEAKER) (test code = 2821) 1 % 0-0 H BANDS - REL (CELLAVISION)(BEAKER) (test code = 2826) 1 % 0 -10 ATYPICAL LYMPHOCYTES - REL (CELLAVISION)(BEAKER) (test code = 2829) 1 % 0-0 H NEUTROPHILS - ABS (CELLAVISION)(BEAKER) (test code = 2830) 14.78 K/ul 1.78-5.38 H LYMPHOCYTES - ABS (CELLAVISION)(BEAKER) (test code = 2831) 0.35 K/ul 1.32-3.57 L MONOCYTES - ABS (CELLAVISION)(BEAKER) (test code = 2832) 1.06 K/uL 0.30-0.82 H EOSINOPHILS - ABS (CELLAVISION)(BEAKER) (test code = 2834) 0.70 K/uL 0.04-0.54 H BASOPHILS - ABS (CELLAVISION)(BEAKER) (test code = 2835) 0.18 K/uL 0.01-0.08 H METAMYELOCYTES - ABS (CELLAVISION)(BEAKER) (test code = 2836 ) 0.18 K/uL 0.00-0.00 H BANDS - ABS (CELLAVISION)(BEAKER) (test code = 2840) 0.18 K/uL 0 .00-0.80 ATYPICAL LYMPHOCYTES - ABS (CELLAVISION)(BEAKER) (test code = 2858) 0.18 K/uL 0.00-0.00 H TOTAL COUNTED (BEAKER) (test code = 1351) 100 WBC MORPHOLOGY (BEAKER) (test code = 487) Normal GIANT PLATELETS (BEAKER) (test code = 313) Present ANISOCYTOSIS (BEAKER) (test code = 961) 1+ few ARTIFACT (CELLAVISION)(BEAKER) (test code = 3432) Present PLATELET CONCENTRATION (CELLAVISION)(BEAKER) (test code = 3438) Cheryl quate Received comment: User comments: Slide comments: URINALYSIS W/ REFLEX URINE [id number] 18:43:00* Test Item Value Reference Range Interpretation Comments COLOR (BEAKER) (test code = 470) Dark Yellow CLARITY (BEAKER) (test code = 469) Clear SPECIFIC GRAVITY UA (BEAKER) (test code = 468) 1.011 1.001-1 .035 PH UA (BEAKER) (test code = 467) 7.0 5.0-8.0 PROTEIN UA (BEAKER) (test code = 464) Negative Negative GLUCOSE UA (BEAKER) (test code = 365) Negative Negative KETONES UA (BEAKER) (test code = 371) Negative Negative BILIRUBIN UA (BEAKER) (test code = 462) Positive Negative A BLOOD UA (BEAKER) (test code = 461) Negative Negative NITRITE UA (BEAKER) (test code = 465) Negative Negative LEUKOCYTE ESTERASE UA (BEAKER) (test code = 466) Trace Negat mumtaz A UROBILINOGEN UA (BEAKER) (test code = 463) 0.2 mg/dL 0.2-1.0 RBC UA (BEAKER) (test code = 519) 1 /HPF WBC UA (BEAKER) (test code = 520) 1 /HPF BACTERIA (BEAKER) (test code = 517) Occasional MUCUS (BEAKER) (test code = 1574) Rare SQUAMOUS EPITHELIAL (BEAKER) (test code = 516) < /HPF SOURCE(BEAKER) (test code = 2795) BASIC METABOLIC [id number] 18:23:00* Test Item Value Reference Range Interpretation Comments SODIUM (BEAKER) (test code = 381) 135 meq/L 136-145 L POTASSIUM (BEAKER) (test code = 379) 3.3 meq/L 3.5-5.1 L CHLORIDE (BEAKER) (test code = 382) 99 meq/L 98-107 CO2 (BEAKER) (test code = 355) 25 meq/L 22-29 BLOOD UREA NITROGEN (BEAKER) (test code = 354) 8 mg/dL 7-21 CREATININE (BEAKER) (test code = 358) 1.42 mg/dL 0.57-1.25 H GLUCOSE RANDOM (BEAKER) (test code = 652) 136 mg/dL 70-105 H CALCIUM (BEAKER) (test code = 697) 7.5 mg/dL 8.4-10.2 L EGFR (BEAKER) (test code = 1092) 56 mL/min/1.73 sq m ESTIMATED GFR IS NOT ACCURATE CREATININE CLEARANCE IN PREDICTING GLOMERULAR FILTRATION RATE. ESTIMATED GFR IS NOT APPLICABLE FOR DIALYSIS PATIENTS. Specimen markedly ictericU/S, ABDOMINAL, [id number] 17:43:00With doppler Reason for exam:->elevated liver enzymes, hyperbilirubinemia, history of fatty liverFINAL REPORT Ultrasound of the Abdomen and Duplex [...] assessment is difficult due to the increased echogenicity.2. Splenomegaly.3. Unremarkable hepatic Doppler. However, several vessels are not well seen.4. CBD not seen but no intrahepatic biliary dilatation.5. Pancreas obscured from view. Signed: Andrew Sloan MDReport Verified Date/Time: 10/17/2018 17:43:28 Reading Location: [address] Consult Reading Room U/S, DUPLEX, [id number] 17:43:00With doppler Reason for exam:->elevated liver enzymes, hyperbilirubinemia, history of fatty liverFINAL REPORT Ultrasound of the Abdomen and Duplex [...] is obscured from view. Minimal ascites is pre sent. The right kidney measures 11.4 cm and left kidney measures 12.3 cm, both w ithin normal limits. No pleural effusions are seen. The proximal aorta and IVC are unremarkable. Doppler interrogation of the liver demonstrates a main portal vein diameter measuring 1.5 cm with a peak systolic velocity of 24 cm/sec. Hepa topetal inflow is seen in the right, left, main portal and splenic veins. The r esistive indices in the proper, right and left hepatic arteries are 0.7, 0.6 and 0.7 respectively. Outflow with appropriate directionality is seen in the IVC, m iddle and left hepatic veins. The hepatic venous confluence and right hepatic ve in are not seen. Impression: 1. Echogenic, enlarged liver consistent with fatty infiltration. No masses are seen but assessment is difficult due to the increase d echogenicity.2. Splenomegaly.3. Unremarkable hepatic Doppler. However, several vessels are not well seen.4. CBD not seen but no intrahepatic biliary dilatatio n.5. Pancreas obscured from view. Signed: Andrew Sloan MDReport Verified Date /Time: 10/17/2018 17:43:28 Reading Location: [address] Consult Reading Room [id number] 17:43:00Interface, External Ris In - 10/17/2018 5:45 PM CDTFINAL REPORT Ultrasound of the Abdomen and Duplex [...] assessment is difficult due to the increased echogenicity.2. Splenomega ly.3. Unremarkable hepatic Doppler. However, several vessels are not well seen.4 . CBD not seen but no intrahepatic biliary dilatation.5. Pancreas obscured from view. Signed: Andrwe Sloaneport Verified Date/Time: 10/17/2018 17:43:28 Reading Location: [address] Consult [facility] [id number] 17:43:00Interface, External Ris In - 10/17/2018 5:45 PM CDTFINAL REPORT Ultrasound of the Abdomen and Duplex [...] assessment is difficult due to the increased echogenicity.2. Splenomega ly.3. Unremarkable hepatic Doppler. However, several vessels are not well seen.4 . CBD not seen but no intrahepatic biliary dilatation.5. Pancreas obscured from view. Signed: Andrew Sloaneport Verified Date/Time: 10/17/2018 17:43:28 Reading Location: [address] Consult Reading Room [facility] [id number] 17:35:00* Test Item Value Reference Range Interpretation Comments MAGNESIUM (BEAKER) (test code = 627) 2.3 mg/dL 1.6-2.6 Creatine Kinase (CK)2018-10-17 16:29:00* Test Item Value Reference Range Interpretation Comments Total CK (test code = 2157-6) 29 U/L 29-200 Lab Interpretation (test code = 94891-4) Normal [facility]2018-10-17 16:29:00* Test Item Value Reference Range Interpretation Comments CREATINE KINASE TOTAL (BEAKER) (test code = 380) 29 U/L 29-20 0 [id number] 16:11:00* Test Item Value Reference Range Interpretation Comments PROCALCITONIN (BEAKER) (test code = 3036) 0.71 ng/mL <0.05 H SEPSIS RISK (ng/mL)Low: 0.05-0.50Intermediate: 0.51-2.00High: > =2.01LACTIC ACID, [id number] 15:42:00* Test Item Value Reference Range Interpretation Comments LACTATE BLOOD VENOUS (2) (BEAKER) (test code = 2872) 1.2 mmol/L 0 .5-2.2 Specimen slightly hemolyzed Specimen markedly ictericCBC W/PLT COUNT & AUTO [id number] 15:29:00 * Test Item Value Reference Range Interpretation Comments WHITE BLOOD CELL COUNT (BEAKER) (test code = 775) 15.7 K/ L 3.5- 10.5 H RED BLOOD CELL COUNT (BEAKER) (test code = 761) 2.34 M/ L 4.63-6 .08 L HEMOGLOBIN (BEAKER) (test code = 410) 8.2 GM/DL 13.7-17.5 L HEMATOCRIT (BEAKER) (test code = 411) 23.9 % 40.1-51.0 L MEAN CORPUSCULAR VOLUME (BEAKER) (test code = 753) 102.1 fL 79. 0-92.2 H MEAN CORPUSCULAR HEMOGLOBIN (BEAKER) (test code = 751) 35.0 pg 25.7-32.2 H MEAN CORPUSCULAR HEMOGLOBIN CONC (BEAKER) (test code = 752) 34.3 GM/DL 32.3-36.5 RED CELL DISTRIBUTION WIDTH (BEAKER) (test code = 412) 17.5 % 11.6-14.4 H PLATELET COUNT (BEAKER) (test code = 756) 165 K/CU MM 150-450 MEAN PLATELET VOLUME (BEAKER) (test code = 754) 10.0 fL 9.4-12 .4 NUCLEATED RED BLOOD CELLS (BEAKER) (test code = 413) 0 /100 WBC 0 -0 [id number] 15:22:00* Test Item Value Reference Range Interpretation Comments ETHANOL (BEAKER) (test code = 400) < mg/dL <=10 CBC W/PLT COUNT & AUTO [id number] 14:47:00* Test Item Value Reference Range Interpretation Comments WHITE BLOOD CELL COUNT (BEAKER) (test code = 775) 14.7 K/ L 3.5- 10.5 H RED BLOOD CELL COUNT (BEAKER) (test code = 761) 1.98 M/ L 4.63-6 .08 L HEMOGLOBIN (BEAKER) (test code = 410) 7.0 GM/DL 13.7-17.5 L HEMATOCRIT (BEAKER) (test code = 411) 20.5 % 40.1-51.0 L MEAN CORPUSCULAR VOLUME (BEAKER) (test code = 753) 103.5 fL 79. 0-92.2 H MEAN CORPUSCULAR HEMOGLOBIN (BEAKER) (test code = 751) 35.4 pg 25.7-32.2 H MEAN CORPUSCULAR HEMOGLOBIN CONC (BEAKER) (test code = 752) 34.1 GM/DL 32.3-36.5 RED CELL DISTRIBUTION WIDTH (BEAKER) (test code = 412) 15.8 % 11.6-14.4 H PLATELET COUNT (BEAKER) (test code = 756) 147 K/CU MM 150-450 L MEAN PLATELET VOLUME (BEAKER) (test code = 754) 10.7 fL 9.4-12 .4 NUCLEATED RED BLOOD CELLS (BEAKER) (test code = 413) 0 /100 WBC 0 -0 (CELLAVISION MANUAL DIFF)2018-10-17 14:47:00* Test Item Value Reference Range Interpretation Comments NEUTROPHILS - REL (CELLAVISION)(BEAKER) (test code = 2816) 87 % LYMPHOCYTES - REL (CELLAVISION)(BEAKER) (test code = 2817) 3 % MONOCYTES - REL (CELLAVISION)(BEAKER) (test code = 2818) 7 % EOSINOPHILS - REL (CELLAVISION)(BEAKER) (test code = 2819) 1 % BASOPHILS - REL (CELLAVISION)(BEAKER) (test code = 2820) 1 % BANDS - REL (CELLAVISION)(BEAKER) (test code = 2826) 1 % 0 -10 NEUTROPHILS - ABS (CELLAVISION)(BEAKER) (test code = 2830) 12.79 K/ul 1.78-5.38 H LYMPHOCYTES - ABS (CELLAVISION)(BEAKER) (test code = 2831) 0.44 K/ul 1.32-3.57 L MONOCYTES - ABS (CELLAVISION)(BEAKER) (test code = 2832) 1.03 K/uL 0.30-0.82 H EOSINOPHILS - ABS (CELLAVISION)(BEAKER) (test code = 2834) 0.15 K/uL 0.04-0.54 BASOPHILS - ABS (CELLAVISION)(BEAKER) (test code = 2835) 0.15 K/uL 0.01-0.08 H BANDS - ABS (CELLAVISION)(BEAKER) (test code = 2840) 0.15 K/uL 0 .00-0.80 TOTAL COUNTED (BEAKER) (test code = 1351) 100 WBC MORPHOLOGY (BEAKER) (test code = 487) Normal PLT MORPHOLOGY (BEAKER) (test code = 486) Normal ANISOCYTOSIS (BEAKER) (test code = 961) 1+ few ARTIFACT (CELLAVISION)(BEAKER) (test code = 3432) Present PLATELET CONCENTRATION (CELLAVISION)(BEAKER) (test code = 3438) Dec reased Received comment: User comments: Slide comments: HEPATIC FUNCTION PANEL 2018-10-17 13:33:00* Test Item Value Reference Range Interpretation Comments TOTAL PROTEIN (BEAKER) (test code = 770) 5.9 gm/dL 6.0-8.3 L ALBUMIN (BEAKER) (test code = 1145) 2.7 g/dL 3.5-5.0 L BILIRUBIN TOTAL (BEAKER) (test code = 377) 34.7 mg/dL 0.2-1.2 H BILIRUBIN DIRECT (BEAKER) (test code = 706) 24.3 mg/dL 0.1-0.5 H ALKALINE PHOSPHATASE (BEAKER) (test code = 346) 137 U/L 40-150 AST (SGOT) (BEAKER) (test code = 353) 97 U/L 5-34 H ALT (SGPT) (BEAKER) (test code = 347) 21 U/L 6-55 Specimen markedly ictericBASIC METABOLIC [id number] 08:16:00* Test Item Value Reference Range Interpretation Comments SODIUM (BEAKER) (test code = 381) 131 meq/L 136-145 L POTASSIUM (BEAKER) (test code = 379) 3.1 meq/L 3.5-5.1 L CHLORIDE (BEAKER) (test code = 382) 97 meq/L 98-107 L CO2 (BEAKER) (test code = 355) 26 meq/L 22-29 BLOOD UREA NITROGEN (BEAKER) (test code = 354) 9 mg/dL 7-21 CREATININE (BEAKER) (test code = 358) 1.25 mg/dL 0.57-1.25 GLUCOSE RANDOM (BEAKER) (test code = 652) 92 mg/dL 70-105 CALCIUM (BEAKER) (test code = 697) 7.4 mg/dL 8.4-10.2 L EGFR (BEAKER) (test code = 1092) 64 mL/min/1.73 sq m ESTIMATED GFR IS NOT ACCURATE CREATININE CLEARANCE IN PREDICTING GLOMERULAR FILTRATION RATE. ESTIMATED GFR IS NOT APPLICABLE FOR DIALYSIS PATIENTS. Specimen markedly ictericURINALYSIS W/ REFLEX URINE [id number] 03:31:00* Test Item Value Reference Range Interpretation Comments COLOR (BEAKER) (test code = 470) Brown CLARITY (BEAKER) (test code = 469) Hazy SPECIFIC GRAVITY UA (BEAKER) (test code = 468) 1.049 1.001-1 .035 H PH UA (BEAKER) (test code = 467) 7.0 5.0-8.0 PROTEIN UA (BEAKER) (test code = 464) 30 mg/dL Negative A GLUCOSE UA (BEAKER) (test code = 365) Negative Negative KETONES UA (BEAKER) (test code = 371) Negative Negative BILIRUBIN UA (BEAKER) (test code = 462) Positive Negative A BLOOD UA (BEAKER) (test code = 461) Trace Negative A NITRITE UA (BEAKER) (test code = 465) Negative Negative LEUKOCYTE ESTERASE UA (BEAKER) (test code = 466) Trace Negat mumtaz A UROBILINOGEN UA (BEAKER) (test code = 463) 2.0 mg/dL 0.2-1.0 H RBC UA (BEAKER) (test code = 519) 4 /HPF WBC UA (BEAKER) (test code = 520) 0 /HPF BACTERIA (BEAKER) (test code = 517) Occasional MUCUS (BEAKER) (test code = 1574) Rare SQUAMOUS EPITHELIAL (BEAKER) (test code = 516) 1 /HPF HYALINE CASTS (BEAKER) (test code = 514) 2 /LPF CASTS (BEAKER) (test code = 1579) 5 /LPF CRYSTALS, URINE (BEAKER) (test code = 1521) Occasional SOURCE(BEAKER) (test code = 2795) Bilirubin Crystals seenBILIRUBIN, [id number] 00:59:00* Test Item Value Reference Range Interpretation Comments BILIRUBIN DIRECT (BEAKER) (test code = 706) 24.2 mg/dL 0.1-0.5 H Specimen slightly hemolyzed COMPREHENSIVE METABOLIC [id number] 00:58:00* Test Item Value Reference Range Interpretation Comments TOTAL PROTEIN (BEAKER) (test code = 770) 6.3 gm/dL 6.0-8.3 Specimen slightly hemolyzed ALBUMIN (BEAKER) (test code = 1145) 2.7 g/dL 3.5-5.0 L Specimen slightly hemolyzed ALKALINE PHOSPHATASE (BEAKER) (test code = 346) 143 U/L 40-150 BILIRUBIN TOTAL (BEAKER) (test code = 377) 35.4 mg/dL 0.2-1.2 H Specimen slightly hemolyzed SODIUM (BEAKER) (test code = 381) 134 meq/L 136-145 L POTASSIUM (BEAKER) (test code = 379) 3.2 meq/L 3.5-5.1 L Specimen slightly hemolyzed CHLORIDE (BEAKER) (test code = 382) 98 meq/L 98-107 CO2 (BEAKER) (test code = 355) 26 meq/L 22-29 BLOOD UREA NITROGEN (BEAKER) (test code = 354) 9 mg/dL 7-21 CREATININE (BEAKER) (test code = 358) 1.08 mg/dL 0.57-1.25 Specimen slightly hemolyzed GLUCOSE RANDOM (BEAKER) (test code = 652) 110 mg/dL 70-105 H CALCIUM (BEAKER) (test code = 697) 7.6 mg/dL 8.4-10.2 L AST (SGOT) (BEAKER) (test code = 353) 92 U/L 5-34 H Specimen slightly hemolyzed ALT (SGPT) (BEAKER) (test code = 347) 21 U/L 6-55 Specimen slightly hemolyzed EGFR (BEAKER) (test code = 1092) 76 mL/min/1.73 sq m ESTIMATED GFR IS NOT ACCURATE CREATININE CLEARANCE IN PREDICTING GLOMERULAR FILTRATION RATE. ESTIMATED GFR IS NOT APPLICABLE FOR DIALYSIS PATIENTS. Specimen markedly [id number] 00:13:00* Test Item Value Reference Range Interpretation Comments MAGNESIUM (BEAKER) (test code = 627) 1.5 mg/dL 1.6-2.6 L Specimen slightly hemolyzed PROTHROMBIN TIME/[id number] 23:47:00* Test Item Value Reference Range Interpretation Comments PROTIME (BEAKER) (test code = 759) 19.6 seconds 11.9-14.2 H INR (BEAKER) (test code = 370) 1.8 <=5.9 Effective 07/24/2018: PT Reference Range ChangeNew: 11.9-14.2 Previous: 11.7-14. 7RECOMMENDED COUMADIN/WARFARIN INR THERAPY RANGESSTANDARD DOSE: 2.0-3.0 Include s: PROPHYLAXIS for venous thrombosis, systemic embolization; TREATMENT for venou s thrombosis and/or pulmonary embolus.HIGH RISK: Target INR is 2.5-3.5 for patie nts wiht mechanical heart valves.CBC W/PLT COUNT & AUTO [id number] 23:43:00* Test Item Value Reference Range Interpretation Comments WHITE BLOOD CELL COUNT (BEAKER) (test code = 775) 16.6 K/ L 3.5- 10.5 H RED BLOOD CELL COUNT (BEAKER) (test code = 761) 1.92 M/ L 4.63-6 .08 L HEMOGLOBIN (BEAKER) (test code = 410) 6.9 GM/DL 13.7-17.5 L HEMATOCRIT (BEAKER) (test code = 411) 20.2 % 40.1-51.0 L MEAN CORPUSCULAR VOLUME (BEAKER) (test code = 753) 105.2 fL 79. 0-92.2 H MEAN CORPUSCULAR HEMOGLOBIN (BEAKER) (test code = 751) 35.9 pg 25.7-32.2 H MEAN CORPUSCULAR HEMOGLOBIN CONC (BEAKER) (test code = 752) 34.2 GM/DL 32.3-36.5 RED CELL DISTRIBUTION WIDTH (BEAKER) (test code = 412) 14.3 % 11.6-14.4 PLATELET COUNT (BEAKER) (test code = 756) 164 K/CU MM 150-450 MEAN PLATELET VOLUME (BEAKER) (test code = 754) 10.3 fL 9.4-12 .4 NUCLEATED RED BLOOD CELLS (BEAKER) (test code = 413) 0 /100 WBC 0 -0 NEUTROPHILS RELATIVE PERCENT (BEAKER) (test code = 429) 80 % LYMPHOCYTES RELATIVE PERCENT (BEAKER) (test code = 430) 6 % MONOCYTES RELATIVE PERCENT (BEAKER) (test code = 431) 12 % EOSINOPHILS RELATIVE PERCENT (BEAKER) (test code = 432) 1 % BASOPHILS RELATIVE PERCENT (BEAKER) (test code = 437) 0 % NEUTROPHILS ABSOLUTE COUNT (BEAKER) (test code = 670) 13.21 K/ L 1.78-5.38 H LYMPHOCYTES ABSOLUTE COUNT (BEAKER) (test code = 414) 0.93 K/ L 1.32-3.57 L MONOCYTES ABSOLUTE COUNT (BEAKER) (test code = 415) 2.01 K/ L 0. 30-0.82 H EOSINOPHILS ABSOLUTE COUNT (BEAKER) (test code = 416) 0.14 K/ L 0.04-0.54 BASOPHILS ABSOLUTE COUNT (BEAKER) (test code = 417) 0.02 K/ L 0. 01-0.08 IMMATURE GRANULOCYTES-RELATIVE PERCENT (BEAKER) (test code = 2801) 2 % 0-1 H RAD, CHEST, 1 VIEW, NON [id number] 22:36:00Reason for exam:->SOBShould this be performed at the bedside?->YesFINAL REPORT RAD, CHEST, 1 VIEW, NON DEPT INDICATION: SOB COMPARISON: July 03, 2018 FINDINGS: Portable frontal view of the chest. IMPRESSION: Interval removal of tracheostomy tube and enteric tube. Bilateral interstitial opacities are similar to prior examination and concerning for acute or chronic interstitial pneumonitis or pulmonary edema. Correlate for congestive heart failure given enlarged cardiac silhouette. No pneumothorax or significant pleural effusion. Enlarged cardiac silhouette. Mediastinal contours are normal. Osseous structures are intact. Signed: Mario Topete MDReport Verified Date/Time: 10/16/2018 22:36:02 Lactic Acid [id number] 20:02:00* Test Item Value Reference Range Interpretation Comments Lactic Acid Level (test code = Lactic Acid Level) 18.4 4.5- 19.8 [facility]00 [facility] [address] [address] Patient Name: INDRA GALVAN JR MR #: [id number] : 1980 Age/Sex: 37/M Req #: [id number] Adm Physician: Ordered by: MARYLU DUQUE MD Report #: [id number] Location: ER Room/Bed: Procedure: NM/HEPTOBILIARY Exam Date: Exam Time: REPORT STATUS: Signed HEPATOBILIA RY SCAN INDICATION: 37 M with RUQ abdominal pain and jaundice Repor t: Following the administration of 6.8 mCi of Tc-99m mebrofenin, dynamic image s of the abdomen in the anterior projection were obtained through 60 minutes. Perfusion of the liver is normal. Extraction of tracer from the blood poo l by the liver parenchyma is markedly prolonged. Tracer does not appear in th e biliary tract through 60 minutes of imaging. Impression: 1. Sev erely impaired hepatocyte function. 2. Cholestasis. Gallbladder filling arnulfo ot be assessed because tracer does not appear in the biliary tract. Sig lara by: Dr. Zaria Feliz M.D. on 10/16/2018 7:27 PM Dictated By: ZARIA BRIGHT MD 26 Transcribed By : CATERINA on 10/16/181926 COPY TO: MARYLU DUQUE MD CT ABDOMEN/PELVIS [id number] 17:40:00 [place] [address] Patient Name: INDRA GALVAN JR MR #: [id number] : 1980 Age/Sex: 37/M Req #: [id number] Adm Physician: Ordered by: MARYLU DUQUE MD Report #: [id number] Location: ER Room/Bed: Procedure: CT/CT ABDOMEN/PELVIS W Exam Date: 10/16/18 E xam Time: 1727 REPORT STATUS: [place] d CT of the abdomen and pelvis, with contrast, 10/16/2018. Hist ory: Hematuria and jaundice. Comparison: 05/27/2018. Technique: Multidet prachi CT scanning of the abdomen and pelvis was performed from the level of th e lung bases to the inferior pubic rami after intravenous administration of co ntrast. Coronal and sagittal multiplanar reformations were obtained. RADIATION DOSE: Total DLP: 808 mGy*cm Dose modulation, iterative r econstruction, and/or weight based adjustment of the mA/kV was utilized to red uce the radiation dose to as low as reasonably achievable. Discussion: LUNG BASES: There is bibasilar atelectasis with trace left pleural effusion. ABDOMEN: The liver remains enlarged measuring over 22 cm in length. There is diffuse low-density of the liver without focal hepatic lesion. The spleen is prominent measuring 13.3 cm in length. The portal vein is dilated measuring 16 mm in diameter. Gallbladder is collapsed with minimal hyperdensity seen layering posteriorly. The biliary tree, pancreas, adrenal glands, and kidneys are unremarkable. The hepatic vein, portal vein, and splenic vein are patent. The abdominal aorta is within normal limits for size. Evaluation of bowel is limited without oral contrast. There is no bowel dilatation. Prominent delma hepatis lymph node measuring up to 1.3 cm in short axis diameter is again not ed. A small amount of ascites is present. Surgical clips are noted in the righ t lower quadrant of uncertain etiology. PELVIS: The bladder, prostate, an d seminal vesicles are normal in appearance. There is no evidence of free flui d or adenopathy. BONES AND SOFT TISSUES: No acute abnormality. IMP RESSION: Hepatosplenomegaly with diffuse fatty infiltration of the liver and f indings suggestive of portal hypertension. Correlate with LFTs. Small volume a scites is again noted. Possible gallbladder sludge again noted. No significant change compared to prior exam. Signed by: Kianna Allen on 10/16/2018 5:5 0 PM Dictated By: KIANNA ALLEN MD 49 Transcribed By: CATERINA on 10/16/181749 COPY TO: MARYLU DUQUE MD Prothrombin [id number] 17:34:00* Test Item Value Reference Range Interpretation Comments Prothrombin Time (test code = 5902-2) 18.5 11.9-14.[address] [facility] [place], [place]Prothromb Time International Ratio 2018-10-16 17:34:00* Test Item Value Reference Range Interpretation Comments Prothromb Time International Ratio (test code = 6301-6) 1.48 Oral Anticoagulant Therapy INR Values:1. Low Intensity Therapy 1.5 - 2.02 . Moderate Intensity Therapy 2.0 - 3.03. High Intensity Therapy(1) 2.5 - 3. 54. High Intensity Therapy(2) 3.0 - 4.05. Panic Value INR > 5.[address] [facility] [place], TXAcetaminophen [id number] 17:30:00* Test Item Value Reference Range Interpretation Comments Acetaminophen Level (test code = 00594-9) < 3 10-[address] [facility] [place], TXUrine [id number] 16:09:00* Test Item Value Reference Range Interpretation Comments Urine WBC (test code = 5821-4) 0-5 0-[address] [facility] [place], TXUrine [id number] 16:09:00* Test Item Value Reference Range Interpretation Comments Urine RBC (test code = 66451-4) 6-10 0-[address] [facility] [place], TXUrine Dfuchrtx0435-03-31 16:09:00* Test Item Value Reference Range Interpretation Comments Urine Bacteria (test code = 90636-9) MANY NONE H [facility] [place], TXUrine Epithelial [id number] 16:09:00 * Test Item Value Reference Range Interpretation Comments Urine Epithelial Cells (test code = 81683-8) FEW NONE [facility] [place], TXUrine Amorphous [id number] 16:09:00* Test Item Value Reference Range Interpretation Comments Urine Amorphous Sediment (test code = 8246-1) MODERATE FEW H [facility] [place], TXUrine Fine Granular Cnroa9149-76-93 16:09:00* Test Item Value Reference Range Interpretation Comments Urine Fine Granular Casts (test code = 93948-6) 1-5 >[address] [facility] [place], TXUrine [id number] 15:58:00* Test Item Value Reference Range Interpretation Comments Urine Color (test code = 5778-6) BROWN YELLOW H [facility] [place], TXUrine Jrldndu9913-75-74 15:58:00* Test Item Value Reference Range Interpretation Comments Urine Clarity (test code = 11866-8) CLOUDY CLEAR H [facility] [place], TXUrine Specific Bbnaslb5868-63-78 15:58:00 * Test Item Value Reference Range Interpretation Comments Urine Specific [place] (test code = 5811-5) 1.010 1.010-1.[address] [facility] [place], TXUrine [id number] 15:58:00* Test Item Value Reference Range Interpretation Comments Urine pH (test code = 13545-9) 7 5-[address] [facility] [place], TXUrine Leukocyte Dqlbmbpy9760-01-80 15:58:00* Test Item Value Reference Range Interpretation Comments Urine Leukocyte Esterase (test code = 31812-2) SMALL NEGATIV E [facility] [place], TXUrine Dxdrpzc0942-82-42 15:58:00* Test Item Value Reference Range Interpretation Comments Urine Nitrite (test code = 63814-2) POSITIVE NEGATIVE H [facility] [place], TXUrine Kycdsqe2922-28-21 15:58:00* Test Item Value Reference Range Interpretation Comments Urine Protein (test code = 63263-7) 2+ NEGATIVE H [facility] [place], TXUrine Glucose (UA)2018-10-16 15:58:00* Test Item Value Reference Range Interpretation Comments Urine Glucose (UA) (test code = 96174-7) 2+ NEGATIVE H [facility] [place], TXUrine Wycvapf4479-75-65 15:58:00* Test Item Value Reference Range Interpretation Comments Urine Ketones (test code = 74439-1) TRACE NEGATIVE H [facility] [place], TXUrine Nhpzejgvpoyc0173-37-07 15:58:00* Test Item Value Reference Range Interpretation Comments Urine Urobilinogen (test code = 03489-2) 1 0.2-[address] [facility] [place], TXUrine Xwwumlpbk4198-92-63 15:58:00* Test Item Value Reference Range Interpretation Comments Urine Bilirubin (test code = 1977-8) LARGE NEGATIVE [facility] [place], TXUrine Gtwmn3131-43-78 15:58:00* Test Item Value Reference Range Interpretation Comments Urine Blood (test code = 60950-9) 3+ NEGATIVE [facility] [place], TXB-Type Natriuretic Kmgugsg1136-85-63 15:31:00* Test Item Value Reference Range Interpretation Comments B-Type Natriuretic Peptide (test code = 71580-7) 403.4 0-[address] [facility] [place], TXCreatine Kinase [id number] 15:20:00* Test Item Value Reference Range Interpretation Comments Creatine Kinase MB (test code = 10058-0) 0.40 0-5.[address] [facility] [place], TXTroponin [id number] 15:20:00* Test Item Value Reference Range Interpretation Comments Troponin I (test code = BYM9246) 0.012 0-0.300 [facility] Planoodium Ifywa9846-15-11 15:19:00* Test Item Value Reference Range Interpretation Comments Sodium Level (test code = 2951-2) 134 136-[address] [facility] [place], TXPotassium Mtsxg7807-74-32 15:19:00* Test Item Value Reference Range Interpretation Comments Potassium Level (test code = 2823-3) 2.7 3.5-5.1 LL Results repeated and called to DR. KELSEY at 1518 on 10/16/18 by VICKY WHITTAKER. Read back and verified.[facility] [place], TXChloride Level 2018-10-16 15:19:00* Test Item Value Reference Range Interpretation Comments Chloride Level (test code = 2075-0) 93 98-[address] [facility] [place], TXCarbon Dioxide Leoyi5177-87-69 15:19:00* Test Item Value Reference Range Interpretation Comments Carbon Dioxide Level (test code = 2028-9) 28 22-[address] [facility] [place], TXAnion [id number] 15:19:00* Test Item Value Reference Range Interpretation Comments Anion Gap (test code = 00586-6) 15.7 8-[address] [facility] [place], TXBlood Urea Mtgodkba7609-63-27 15:19:00* Test Item Value Reference Range Interpretation Comments Blood Urea Nitrogen (test code = 3094-0) 9 7-[address] [facility] [place], TXCreatinine2019-08-21 15:19:00* Test Item Value Reference Range Interpretation Comments Creatinine (test code = 2160-0) 1.47 0.72-1.[address] [facility] [place], TXBUN/Creatinine Iunxa6773-48-26 15:19:00* Test Item Value Reference Range Interpretation Comments BUN/Creatinine Ratio (test code = 3097-3) 6 6-[address] [facility] [place], TXEstimat Glomerular Filtration Rate 2018-10-16 15:19:00* Test Item Value Reference Range Interpretation Comments Estimat Glomerular Filtration Rate (test code = 374501215) 53 >60 L Ranges were taken from the National Kidney Disease Education Program and the [facility] [employer] literature.Reference ranges:60 or greater: Yghnrs23-04 ( for 3 consecutive months): Chronic kidney disease 15 or less: Kidney failure[facility] [place], TXGlucose Gfxyr1620-55-06 15:19:00* Test Item Value Reference Range Interpretation Comments Glucose Level (test code = SZK4123) 144 74-[address] [facility] [place], TXCalcium Epgqf7350-90-80 15:19:00* Test Item Value Reference Range Interpretation Comments Calcium Level (test code = 89931-1) 8.5 8.4-10.[address] [facility] [place], TXTotal Btgxlgefq3982-22-42 15:19:00* Test Item Value Reference Range Interpretation Comments Total Bilirubin (test code = 1975-2) > 25.0 0.2-1.[address] [facility] [place], TXAspartate Amino Transf (AST/SGOT) 2018-10-16 15:19:00* Test Item Value Reference Range Interpretation Comments Aspartate Amino Transf (AST/SGOT) (test code = Aspartate Amino Transf (AST/SGOT)) 98 5-[address] [facility] [place], TXAlanine Aminotransferase (ALT/SGPT) 2018-10-16 15:19:00* Test Item Value Reference Range Interpretation Comments Alanine Aminotransferase (ALT/SGPT) (test code = 1742-6) 22 0-[address] [facility] [place], TXTotal Gfdhora7398-27-14 15:19:00* Test Item Value Reference Range Interpretation Comments Total Protein (test code = 2885-2) 6.6 6.5-8.[address] [facility] [place], TXAlbumin2019-08-21 15:19:00* Test Item Value Reference Range Interpretation Comments Albumin (test code = 1751-7) 2.5 3.5-5.[address] [facility] [place], TXGlobulin2019-08-21 15:19:00* Test Item Value Reference Range Interpretation Comments Globulin (test code = 11076-8) 4.1 2.3-3.[address] [facility] [place], TXAlbumin/Globulin Kvnli3481-04-11 15:19:00 * Test Item Value Reference Range Interpretation Comments Albumin/Globulin Ratio (test code = 1759-0) 0.6 0.8-2.[address] [facility] [place], TXAlkaline Unylldfqoix3727-86-03 15:19:00* Test Item Value Reference Range Interpretation Comments Alkaline Phosphatase (test code = 6768-6) 159 40-[address] [facility] [place], TXCreatine Loivsg7110-75-41 15:19:00* Test Item Value Reference Range Interpretation Comments Creatine Kinase (test code = 2157-6) 39 30-[address] [facility] [place], TXWhite Blood Lzaih7332-13-55 14:59:00* Test Item Value Reference Range Interpretation Comments White Blood Count (test code = 6690-2) 18.65 4.8-10.[address] [facility] [place], TXRed Blood Xufvk0620-87-81 14:59:00* Test Item Value Reference Range Interpretation Comments Red Blood Count (test code = 789-8) 2.11 4.3-5.[address] [facility] [place], TXHemoglobin2019-08-21 14:59:00* Test Item Value Reference Range Interpretation Comments Hemoglobin (test code = 71112-5) 7.7 14.0-18.[address] [facility] [place], TXHematocrit2019-08-21 14:59:00* Test Item Value Reference Range Interpretation Comments Hematocrit (test code = 4544-3) 22.2 38.2-49.[address] [facility] [place], TXMean Corpuscular Ugmvhb9045-64-84 14:59:00* Test Item Value Reference Range Interpretation Comments Mean Corpuscular Volume (test code = 787-2) 105.2 81-[address] [facility] [place], TXMean Corpuscular Jacelcjdbg4169-72-21 14:59:00* Test Item Value Reference Range Interpretation Comments Mean Corpuscular Hemoglobin (test code = 785-6) 36.5 28-[address] [facility] [place], TXMean Corpuscular Hemoglobin Concent 2018-10-16 14:59:00* Test Item Value Reference Range Interpretation Comments Mean Corpuscular Hemoglobin Concent (test code = 786-4) 34.7 31-[address] [facility] [place], TXRed Cell Distribution Hzmtv4508-30-82 14:59:00* Test Item Value Reference Range Interpretation Comments Red Cell Distribution Width (test code = 44038-7) 14.0 11.7 -14.[address] [facility] [place], TXPlatelet Kwdbm5434-43-72 14:59:00* Test Item Value Reference Range Interpretation Comments Platelet Count (test code = 777-3) 184 140-[address] [facility] [place], TXNeutrophils (%) (Auto)2018-10-16 14:59:00 * Test Item Value Reference Range Interpretation Comments Neutrophils (%) (Auto) (test code = 59456-6) 80.6 38.7-80.[address] [facility] [place], TXLymphocytes (%) (Auto)2018-10-16 14:59:00 * Test Item Value Reference Range Interpretation Comments Lymphocytes (%) (Auto) (test code = 736-9) 5.3 18.0-39.[address] [facility] [place], TXMonocytes (%) (Auto)2018-10-16 14:59:00* Test Item Value Reference Range Interpretation Comments Monocytes (%) (Auto) (test code = 5905-5) 11.7 4.4-11.[address] [facility] [place], TXEosinophils (%) (Auto)2018-10-16 14:59:00 * Test Item Value Reference Range Interpretation Comments Eosinophils (%) (Auto) (test code = 713-8) 0.5 0.0-6.[address] [facility] [place], TXBasophils (%) (Auto)2018-10-16 14:59:00* Test Item Value Reference Range Interpretation Comments Basophils (%) (Auto) (test code = 706-2) 0.3 0.0-1.[address] [facility] [place], TXIM GRANULOCYTES %2018-10-16 14:59:00* Test Item Value Reference Range Interpretation Comments IM GRANULOCYTES % (test code = IM GRANULOCYTES %) 1.6 0.0- 1.[address] [facility] [place], TXNeutrophils # (Auto)2018-10-16 14:59:00* Test Item Value Reference Range Interpretation Comments Neutrophils # (Auto) (test code = 751-8) 15.0 2.1-6.[address] [facility] [place], TXLymphocytes # (Auto)2018-10-16 14:59:00* Test Item Value Reference Range Interpretation Comments Lymphocytes # (Auto) (test code = 22090-4) 1.0 1.0-3.[address] [facility] [place], TXMonocytes # (Auto)2018-10-16 14:59:00* Test Item Value Reference Range Interpretation Comments Monocytes # (Auto) (test code = 742-7) 2.2 0.2-0.[address] [facility] [place], TXEosinophils # (Auto)2018-10-16 14:59:00* Test Item Value Reference Range Interpretation Comments Eosinophils # (Auto) (test code = 711-2) 0.1 0.0-0.[address] [facility] [place], TXBasophils # (Auto)2018-10-16 14:59:00* Test Item Value Reference Range Interpretation Comments Basophils # (Auto) (test code = 704-7) 0.1 0.0-0.[address] [facility] [place], TXAbsolute Immature Granulocyte (auto 2018-10-16 14:59:00* Test Item Value Reference Range Interpretation Comments Absolute Immature Granulocyte (auto (doug t code = Absolute Immature Granulocyte (auto) 0.30 0-0.[address] [facility] [place], TXAFB CULTURE + [id number] 07:33:00* Test Item Value Reference Range Interpretation Comments CULTURE (BEAKER) (test code = 1095) No acid-fast bacilli isolate d in 42 days AFB SMEAR (BEAKER) (test code = 994) No acid fast bacilli seen FUNGUS CULTURE + [id number] 17:11:00* Test Item Value Reference Range Interpretation Comments CULTURE (BEAKER) (test code = 1095) No fungus isolated in 28 days FUNGUS SMEAR (BEAKER) (test code = 1406) No fungi seen CREATINE KINASE (CK)2018-07-09 05:38:00* Test Item Value Reference Range Interpretation Comments CREATINE KINASE TOTAL (BEAKER) (test code = 380) 17 U/L 29-20 0 L QNPKGPBZS8361-39-72 05:37:00* Test Item Value Reference Range Interpretation Comments MAGNESIUM (BEAKER) (test code = 627) 1.6 mg/dL 1.6-2.6 BASIC METABOLIC [id number] 05:37:00* Test Item Value Reference Range Interpretation Comments SODIUM (BEAKER) (test code = 381) 138 meq/L 136-145 POTASSIUM (BEAKER) (test code = 379) 3.9 meq/L 3.5-5.1 CHLORIDE (BEAKER) (test code = 382) 106 meq/L 98-107 CO2 (BEAKER) (test code = 355) 22 meq/L 22-29 BLOOD UREA NITROGEN (BEAKER) (test code = 354) 8 mg/dL 7-21 CREATININE (BEAKER) (test code = 358) 1.15 mg/dL 0.57-1.25 GLUCOSE RANDOM (BEAKER) (test code = 652) 130 mg/dL 70-105 H CALCIUM (BEAKER) (test code = 697) 9.2 mg/dL 8.4-10.2 EGFR (BEAKER) (test code = 1092) 71 mL/min/1.73 sq m ESTIMATED GFR IS NOT ACCURATE CREATININE CLEARANCE IN PREDICTING GLOMERULAR FILTRATION RATE. ESTIMATED GFR IS NOT APPLICABLE FOR DIALYSIS PATIENTS. Specimen moderately ictericHEPATIC FUNCTION [id number] 05:37:00* Test Item Value Reference Range Interpretation Comments TOTAL PROTEIN (BEAKER) (test code = 770) 5.9 gm/dL 6.0-8.3 L ALBUMIN (BEAKER) (test code = 1145) 3.0 g/dL 3.5-5.0 L BILIRUBIN TOTAL (BEAKER) (test code = 377) 5.5 mg/dL 0.2-1.2 H BILIRUBIN DIRECT (BEAKER) (test code = 706) 3.8 mg/dL 0.1-0.5 H ALKALINE PHOSPHATASE (BEAKER) (test code = 346) 216 U/L 40-150 H AST (SGOT) (BEAKER) (test code = 353) 151 U/L 5-34 H ALT (SGPT) (BEAKER) (test code = 347) 83 U/L 6-55 H Specimen moderately qrjkwcpYPBF3538-80-03 05:32:00* Test Item Value Reference Range Interpretation Comments PARTIAL THROMBOPLASTIN TIME (BEAKER) (test code = 760) 45.3 seconds 22.5-36.0 H PROTHROMBIN TIME/[id number] 05:31:00* Test Item Value Reference Range Interpretation Comments PROTIME (BEAKER) (test code = 759) 16.5 seconds 11.7-14.7 H INR (BEAKER) (test code = 370) 1.4 <=5.9 RECOMMENDED COUMADIN/WARFARIN INR THERAPY RANGESSTANDARD DOSE: 2.0 - 3.0 Inclu herb: PROPHYLAXIS for venous thrombosis, systemic embolization; TREATMENT for giulia ous thrombosis and/or pulmonary embolus.HIGH RISK: Target INR is 2.5-3.5 for pat ients with mechanical heart valves.CBC W/PLT COUNT & AUTO MTIKAEGBYBFG6710-11-34 05:08:00* Test Item Value Reference Range Interpretation Comments WHITE BLOOD CELL COUNT (BEAKER) (test code = 775) 10.2 K/ L 3.5- 10.5 RED BLOOD CELL COUNT (BEAKER) (test code = 761) 2.55 M/ L 4.63-6 .08 L HEMOGLOBIN (BEAKER) (test code = 410) 7.9 GM/DL 13.7-17.5 L HEMATOCRIT (BEAKER) (test code = 411) 25.1 % 40.1-51.0 L MEAN CORPUSCULAR VOLUME (BEAKER) (test code = 753) 98.4 fL 79. 0-92.2 H MEAN CORPUSCULAR HEMOGLOBIN (BEAKER) (test code = 751) 31.0 pg 25.7-32.2 MEAN CORPUSCULAR HEMOGLOBIN CONC (BEAKER) (test code = 752) 31.5 GM/DL 32.3-36.5 L RED CELL DISTRIBUTION WIDTH (BEAKER) (test code = 412) 17.8 % 11.6-14.4 H PLATELET COUNT (BEAKER) (test code = 756) 228 K/CU MM 150-450 MEAN PLATELET VOLUME (BEAKER) (test code = 754) 9.4 fL 9.4-12 .4 NUCLEATED RED BLOOD CELLS (BEAKER) (test code = 413) 0 /100 WBC 0 -0 NEUTROPHILS RELATIVE PERCENT (BEAKER) (test code = 429) 58 % LYMPHOCYTES RELATIVE PERCENT (BEAKER) (test code = 430) 15 % MONOCYTES RELATIVE PERCENT (BEAKER) (test code = 431) 9 % EOSINOPHILS RELATIVE PERCENT (BEAKER) (test code = 432) 17 % BASOPHILS RELATIVE PERCENT (BEAKER) (test code = 437) 1 % NEUTROPHILS ABSOLUTE COUNT (BEAKER) (test code = 670) 5.94 K/ L 1.78-5.38 H LYMPHOCYTES ABSOLUTE COUNT (BEAKER) (test code = 414) 1.50 K/ L 1.32-3.57 MONOCYTES ABSOLUTE COUNT (BEAKER) (test code = 415) 0.95 K/ L 0. 30-0.82 H EOSINOPHILS ABSOLUTE COUNT (BEAKER) (test code = 416) 1.72 K/ L 0.04-0.54 H BASOPHILS ABSOLUTE COUNT (BEAKER) (test code = 417) 0.08 K/ L 0. 01-0.08 IMMATURE GRANULOCYTES-RELATIVE PERCENT (BEAKER) (test code = 2801) 1 % 0-1 POCT-GLUCOSE [id number] 22:05:00* Test Item Value Reference Range Interpretation Comments POC-GLUCOSE METER (BEAKER) (test code = 1538) 168 mg/dL 70-110 H TESTED AT [facility] [address] [facility] [address] [place], ESOPH, SWALLOW FUNCTION, WITH CINE OR [id number] 10:04:00Reason for exam:->evaluate swallow safety after prolonged vent supportFINAL REPORT Modified barium swallow. CLINICAL HISTORY: evaluate swallow safety after prolonged vent support. COMPARISON STUDY: None available. FINDINGS: Under the direction of patient's speech pathologist, the patient ingested thin barium, thick barium, barium-coated crackers and barium pur\\XE9\\e. No evidence of laryngeal penetration or aspiration is seen with any of the consistencies. Please refer to the speech pathology notes for further discussion. Fluoroscopy time: 1.25 minutes. One image. Signed: Andrew Sloan MDReport Verified Date/Time: 07/08/2018 10:04:01 Reading Location: [facility] B1 [id number] [facility] Consult Reading Room [id number] 06:21:00* Test Item Value Reference Range Interpretation Comments MAGNESIUM (BEAKER) (test code = 627) 1.7 mg/dL 1.6-2.6 BASIC METABOLIC [id number] 06:21:00* Test Item Value Reference Range Interpretation Comments SODIUM (BEAKER) (test code = 381) 139 meq/L 136-145 POTASSIUM (BEAKER) (test code = 379) 4.2 meq/L 3.5-5.1 CHLORIDE (BEAKER) (test code = 382) 105 meq/L 98-107 CO2 (BEAKER) (test code = 355) 24 meq/L 22-29 BLOOD UREA NITROGEN (BEAKER) (test code = 354) 8 mg/dL 7-21 CREATININE (BEAKER) (test code = 358) 1.10 mg/dL 0.57-1.25 GLUCOSE RANDOM (BEAKER) (test code = 652) 88 mg/dL 70-105 CALCIUM (BEAKER) (test code = 697) 9.2 mg/dL 8.4-10.2 EGFR (BEAKER) (test code = 1092) 75 mL/min/1.73 sq m ESTIMATED GFR IS NOT ACCURATE CREATININE CLEARANCE IN PREDICTING GLOMERULAR FILTRATION RATE. ESTIMATED GFR IS NOT APPLICABLE FOR DIALYSIS PATIENTS. Specimen moderately ictericHEPATIC FUNCTION [id number] 06:21:00* Test Item Value Reference Range Interpretation Comments TOTAL PROTEIN (BEAKER) (test code = 770) 5.9 gm/dL 6.0-8.3 L ALBUMIN (BEAKER) (test code = 1145) 3.1 g/dL 3.5-5.0 L BILIRUBIN TOTAL (BEAKER) (test code = 377) 5.8 mg/dL 0.2-1.2 H BILIRUBIN DIRECT (BEAKER) (test code = 706) 4.2 mg/dL 0.1-0.5 H ALKALINE PHOSPHATASE (BEAKER) (test code = 346) 229 U/L 40-150 H AST (SGOT) (BEAKER) (test code = 353) 167 U/L 5-34 H ALT (SGPT) (BEAKER) (test code = 347) 86 U/L 6-55 H Specimen moderately ictericCBC W/PLT COUNT & AUTO [id number] 06:09:00* Test Item Value Reference Range Interpretation Comments WHITE BLOOD CELL COUNT (BEAKER) (test code = 775) 10.9 K/ L 3.5- 10.5 H RED BLOOD CELL COUNT (BEAKER) (test code = 761) 2.68 M/ L 4.63-6 .08 L HEMOGLOBIN (BEAKER) (test code = 410) 8.3 GM/DL 13.7-17.5 L HEMATOCRIT (BEAKER) (test code = 411) 26.3 % 40.1-51.0 L MEAN CORPUSCULAR VOLUME (BEAKER) (test code = 753) 98.1 fL 79. 0-92.2 H MEAN CORPUSCULAR HEMOGLOBIN (BEAKER) (test code = 751) 31.0 pg 25.7-32.2 MEAN CORPUSCULAR HEMOGLOBIN CONC (BEAKER) (test code = 752) 31.6 GM/DL 32.3-36.5 L RED CELL DISTRIBUTION WIDTH (BEAKER) (test code = 412) 18.6 % 11.6-14.4 H PLATELET COUNT (BEAKER) (test code = 756) 239 K/CU MM 150-450 MEAN PLATELET VOLUME (BEAKER) (test code = 754) 9.8 fL 9.4-12 .4 NUCLEATED RED BLOOD CELLS (BEAKER) (test code = 413) 0 /100 WBC 0 -0 NEUTROPHILS RELATIVE PERCENT (BEAKER) (test code = 429) 59 % LYMPHOCYTES RELATIVE PERCENT (BEAKER) (test code = 430) 15 % MONOCYTES RELATIVE PERCENT (BEAKER) (test code = 431) 9 % EOSINOPHILS RELATIVE PERCENT (BEAKER) (test code = 432) 17 % BASOPHILS RELATIVE PERCENT (BEAKER) (test code = 437) 1 % NEUTROPHILS ABSOLUTE COUNT (BEAKER) (test code = 670) 6.40 K/ L 1.78-5.38 H LYMPHOCYTES ABSOLUTE COUNT (BEAKER) (test code = 414) 1.59 K/ L 1.32-3.57 MONOCYTES ABSOLUTE COUNT (BEAKER) (test code = 415) 0.96 K/ L 0. 30-0.82 H EOSINOPHILS ABSOLUTE COUNT (BEAKER) (test code = 416) 1.82 K/ L 0.04-0.54 H BASOPHILS ABSOLUTE COUNT (BEAKER) (test code = 417) 0.08 K/ L 0. 01-0.08 IMMATURE GRANULOCYTES-RELATIVE PERCENT (BEAKER) (test code = 2801) 1 % 0-1 [id number] 05:49:00* Test Item Value Reference Range Interpretation Comments PARTIAL THROMBOPLASTIN TIME (BEAKER) (test code = 760) 45.0 seconds 22.5-36.0 H PROTHROMBIN [id number] 05:48:00* Test Item Value Reference Range Interpretation Comments PROTIME (BEAKER) (test code = 759) 15.7 seconds 11.7-14.7 H INR (BEAKER) (test code = 370) 1.3 <=5.9 RECOMMENDED COUMADIN/WARFARIN INR THERAPY RANGESSTANDARD DOSE: 2.0 - 3.0 Inclu herb: PROPHYLAXIS for venous thrombosis, systemic embolization; TREATMENT for giulia ous thrombosis and/or pulmonary embolus.HIGH RISK: Target INR is 2.5-3.5 for pat ients with mechanical heart valves.POCT-GLUCOSE [id number] 05:45:00* Test Item Value Reference Range Interpretation Comments POC-GLUCOSE METER (BEAKER) (test code = 1538) 104 mg/dL 70-110 TESTED AT [address] [address] POCT-GLUCOSE [id number] 00:02:00* Test Item Value Reference Range Interpretation Comments POC-GLUCOSE METER (BEAKER) (test code = 1538) 102 mg/dL 70-110 TESTED AT [address] [address] POCT-GLUCOSE [id number] 18:01:00* Test Item Value Reference Range Interpretation Comments POC-GLUCOSE METER (BEAKER) (test code = 1538) 91 mg/dL 70-110 TESTED AT [address] [address] POCT-GLUCOSE [id number] 12:34:00* Test Item Value Reference Range Interpretation Comments POC-GLUCOSE METER (BEAKER) (test code = 1538) 94 mg/dL 70-110 TESTED AT [address] [address] POCT-GLUCOSE [id number] 06:22:00* Test Item Value Reference Range Interpretation Comments POC-GLUCOSE METER (BEAKER) (test code = 1538) 111 mg/dL 70-110 H TESTED AT [address] [address] [id number] 06:14:00* Test Item Value Reference Range Interpretation Comments MAGNESIUM (BEAKER) (test code = 627) 1.8 mg/dL 1.6-2.6 BASIC METABOLIC [id number] 06:14:00* Test Item Value Reference Range Interpretation Comments SODIUM (BEAKER) (test code = 381) 139 meq/L 136-145 POTASSIUM (BEAKER) (test code = 379) 4.5 meq/L 3.5-5.1 CHLORIDE (BEAKER) (test code = 382) 108 meq/L 98-107 H CO2 (BEAKER) (test code = 355) 22 meq/L 22-29 BLOOD UREA NITROGEN (BEAKER) (test code = 354) 8 mg/dL 7-21 CREATININE (BEAKER) (test code = 358) 0.99 mg/dL 0.57-1.25 GLUCOSE RANDOM (BEAKER) (test code = 652) 95 mg/dL 70-105 CALCIUM (BEAKER) (test code = 697) 8.9 mg/dL 8.4-10.2 EGFR (BEAKER) (test code = 1092) 84 mL/min/1.73 sq m ESTIMATED GFR IS NOT ACCURATE CREATININE CLEARANCE IN PREDICTING GLOMERULAR FILTRATION RATE. ESTIMATED GFR IS NOT APPLICABLE FOR DIALYSIS PATIENTS. Specimen moderately ictericHEPATIC FUNCTION [id number] 06:14:00* Test Item Value Reference Range Interpretation Comments TOTAL PROTEIN (BEAKER) (test code = 770) 5.7 gm/dL 6.0-8.3 L ALBUMIN (BEAKER) (test code = 1145) 3.0 g/dL 3.5-5.0 L BILIRUBIN TOTAL (BEAKER) (test code = 377) 5.8 mg/dL 0.2-1.2 H BILIRUBIN DIRECT (BEAKER) (test code = 706) 4.2 mg/dL 0.1-0.5 H ALKALINE PHOSPHATASE (BEAKER) (test code = 346) 248 U/L 40-150 H AST (SGOT) (BEAKER) (test code = 353) 153 U/L 5-34 H ALT (SGPT) (BEAKER) (test code = 347) 93 U/L 6-55 H Specimen moderately [id number] 05:42:00* Test Item Value Reference Range Interpretation Comments PARTIAL THROMBOPLASTIN TIME (BEAKER) (test code = 760) 43.0 seconds 22.5-36.0 H PROTHROMBIN [id number] 05:41:00* Test Item Value Reference Range Interpretation Comments PROTIME (BEAKER) (test code = 759) 16.0 seconds 11.7-14.7 H INR (BEAKER) (test code = 370) 1.3 <=5.9 RECOMMENDED COUMADIN/WARFARIN INR THERAPY RANGESSTANDARD DOSE: 2.0 - 3.0 Inclu herb: PROPHYLAXIS for venous thrombosis, systemic embolization; TREATMENT for giulia ous thrombosis and/or pulmonary embolus.HIGH RISK: Target INR is 2.5-3.5 for pat ients with mechanical heart valves.CBC W/PLT COUNT & AUTO [id number] 05:30:00* Test Item Value Reference Range Interpretation Comments WHITE BLOOD CELL COUNT (BEAKER) (test code = 775) 11.2 K/ L 3.5- 10.5 H RED BLOOD CELL COUNT (BEAKER) (test code = 761) 2.43 M/ L 4.63-6 .08 L HEMOGLOBIN (BEAKER) (test code = 410) 7.6 GM/DL 13.7-17.5 L HEMATOCRIT (BEAKER) (test code = 411) 24.2 % 40.1-51.0 L MEAN CORPUSCULAR VOLUME (BEAKER) (test code = 753) 99.6 fL 79. 0-92.2 H MEAN CORPUSCULAR HEMOGLOBIN (BEAKER) (test code = 751) 31.3 pg 25.7-32.2 MEAN CORPUSCULAR HEMOGLOBIN CONC (BEAKER) (test code = 752) 31.4 GM/DL 32.3-36.5 L RED CELL DISTRIBUTION WIDTH (BEAKER) (test code = 412) 19.4 % 11.6-14.4 H PLATELET COUNT (BEAKER) (test code = 756) 191 K/CU MM 150-450 MEAN PLATELET VOLUME (BEAKER) (test code = 754) 9.9 fL 9.4-12 .4 NUCLEATED RED BLOOD CELLS (BEAKER) (test code = 413) 0 /100 WBC 0 -0 NEUTROPHILS RELATIVE PERCENT (BEAKER) (test code = 429) 60 % LYMPHOCYTES RELATIVE PERCENT (BEAKER) (test code = 430) 14 % MONOCYTES RELATIVE PERCENT (BEAKER) (test code = 431) 9 % EOSINOPHILS RELATIVE PERCENT (BEAKER) (test code = 432) 16 % BASOPHILS RELATIVE PERCENT (BEAKER) (test code = 437) 1 % NEUTROPHILS ABSOLUTE COUNT (BEAKER) (test code = 670) 6.65 K/ L 1.78-5.38 H LYMPHOCYTES ABSOLUTE COUNT (BEAKER) (test code = 414) 1.54 K/ L 1.32-3.57 MONOCYTES ABSOLUTE COUNT (BEAKER) (test code = 415) 1.03 K/ L 0. 30-0.82 H EOSINOPHILS ABSOLUTE COUNT (BEAKER) (test code = 416) 1.81 K/ L 0.04-0.54 H BASOPHILS ABSOLUTE COUNT (BEAKER) (test code = 417) 0.08 K/ L 0. 01-0.08 IMMATURE GRANULOCYTES-RELATIVE PERCENT (BEAKER) (test code = 2801) 1 % 0-1 POCT-GLUCOSE [id number] 00:27:00* Test Item Value Reference Range Interpretation Comments POC-GLUCOSE METER (BEAKER) (test code = 1538) 110 mg/dL 70-110 TESTED AT [address] [address] POCT-GLUCOSE [id number] 17:58:00* Test Item Value Reference Range Interpretation Comments POC-GLUCOSE METER (BEAKER) (test code = 1538) 165 mg/dL 70-110 H TESTED AT [address] [address] POCT-GLUCOSE [id number] 12:01:00* Test Item Value Reference Range Interpretation Comments POC-GLUCOSE METER (BEAKER) (test code = 1538) 138 mg/dL 70-110 H TESTED AT [address] [address] [id number] 07:32:00* Test Item Value Reference Range Interpretation Comments PARTIAL THROMBOPLASTIN TIME (BEAKER) (test code = 760) 43.2 seconds 22.5-36.0 H PROTHROMBIN TIME/[id number] 07:31:00* Test Item Value Reference Range Interpretation Comments PROTIME (BEAKER) (test code = 759) 15.1 seconds 11.7-14.7 H INR (BEAKER) (test code = 370) 1.3 <=5.9 RECOMMENDED COUMADIN/WARFARIN INR THERAPY RANGESSTANDARD DOSE: 2.0 - 3.0 Inclu herb: PROPHYLAXIS for venous thrombosis, systemic embolization; TREATMENT for giulia ous thrombosis and/or pulmonary embolus.HIGH RISK: Target INR is 2.5-3.5 for pat ients with mechanical heart valves.[id number] 06:50:00* Test Item Value Reference Range Interpretation Comments MAGNESIUM (BEAKER) (test code = 627) 1.5 mg/dL 1.6-2.6 L BASIC METABOLIC [id number] 06:50:00* Test Item Value Reference Range Interpretation Comments SODIUM (BEAKER) (test code = 381) 136 meq/L 136-145 POTASSIUM (BEAKER) (test code = 379) 4.6 meq/L 3.5-5.1 CHLORIDE (BEAKER) (test code = 382) 107 meq/L 98-107 CO2 (BEAKER) (test code = 355) 21 meq/L 22-29 L BLOOD UREA NITROGEN (BEAKER) (test code = 354) 9 mg/dL 7-21 CREATININE (BEAKER) (test code = 358) 1.01 mg/dL 0.57-1.25 GLUCOSE RANDOM (BEAKER) (test code = 652) 142 mg/dL 70-105 H CALCIUM (BEAKER) (test code = 697) 8.7 mg/dL 8.4-10.2 EGFR (BEAKER) (test code = 1092) 82 mL/min/1.73 sq m ESTIMATED GFR IS NOT ACCURATE CREATININE CLEARANCE IN PREDICTING GLOMERULAR FILTRATION RATE. ESTIMATED GFR IS NOT APPLICABLE FOR DIALYSIS PATIENTS. Specimen moderately ictericHEPATIC FUNCTION [id number] 06:50:00* Test Item Value Reference Range Interpretation Comments TOTAL PROTEIN (BEAKER) (test code = 770) 5.6 gm/dL 6.0-8.3 L ALBUMIN (BEAKER) (test code = 1145) 3.0 g/dL 3.5-5.0 L BILIRUBIN TOTAL (BEAKER) (test code = 377) 6.0 mg/dL 0.2-1.2 H BILIRUBIN DIRECT (BEAKER) (test code = 706) 4.4 mg/dL 0.1-0.5 H ALKALINE PHOSPHATASE (BEAKER) (test code = 346) 261 U/L 40-150 H AST (SGOT) (BEAKER) (test code = 353) 182 U/L 5-34 H ALT (SGPT) (BEAKER) (test code = 347) 102 U/L 6-55 H Specimen moderately ictericCBC W/PLT COUNT & AUTO [id number] 06:49:00* Test Item Value Reference Range Interpretation Comments WHITE BLOOD CELL COUNT (BEAKER) (test code = 775) 12.0 K/ L 3.5- 10.5 H RED BLOOD CELL COUNT (BEAKER) (test code = 761) 2.41 M/ L 4.63-6 .08 L HEMOGLOBIN (BEAKER) (test code = 410) 7.6 GM/DL 13.7-17.5 L HEMATOCRIT (BEAKER) (test code = 411) 24.0 % 40.1-51.0 L MEAN CORPUSCULAR VOLUME (BEAKER) (test code = 753) 99.6 fL 79. 0-92.2 H MEAN CORPUSCULAR HEMOGLOBIN (BEAKER) (test code = 751) 31.5 pg 25.7-32.2 MEAN CORPUSCULAR HEMOGLOBIN CONC (BEAKER) (test code = 752) 31.7 GM/DL 32.3-36.5 L RED CELL DISTRIBUTION WIDTH (BEAKER) (test code = 412) 19.4 % 11.6-14.4 H PLATELET COUNT (BEAKER) (test code = 756) 185 K/CU MM 150-450 MEAN PLATELET VOLUME (BEAKER) (test code = 754) 9.8 fL 9.4-12 .4 NUCLEATED RED BLOOD CELLS (BEAKER) (test code = 413) 0 /100 WBC 0 -0 NEUTROPHILS RELATIVE PERCENT (BEAKER) (test code = 429) 65 % LYMPHOCYTES RELATIVE PERCENT (BEAKER) (test code = 430) 10 % MONOCYTES RELATIVE PERCENT (BEAKER) (test code = 431) 9 % EOSINOPHILS RELATIVE PERCENT (BEAKER) (test code = 432) 16 % BASOPHILS RELATIVE PERCENT (BEAKER) (test code = 437) 1 % NEUTROPHILS ABSOLUTE COUNT (BEAKER) (test code = 670) 7.79 K/ L 1.78-5.38 H LYMPHOCYTES ABSOLUTE COUNT (BEAKER) (test code = 414) 1.15 K/ L 1.32-3.57 L MONOCYTES ABSOLUTE COUNT (BEAKER) (test code = 415) 1.02 K/ L 0. 30-0.82 H EOSINOPHILS ABSOLUTE COUNT (BEAKER) (test code = 416) 1.88 K/ L 0.04-0.54 H BASOPHILS ABSOLUTE COUNT (BEAKER) (test code = 417) 0.06 K/ L 0. 01-0.08 IMMATURE GRANULOCYTES-RELATIVE PERCENT (BEAKER) (test code = 2801) 1 % 0-1 POCT-GLUCOSE [id number] 06:06:00* Test Item Value Reference Range Interpretation Comments POC-GLUCOSE METER ([facility]) (test code = 1538) 165 mg/dL 70-110 H TESTED AT [facility] [address] [facility] [address] POCT-GLUCOSE [id number] 00:15:00* Test Item Value Reference Range Interpretation Comments POC-GLUCOSE METER ([facility]) (test code = 1538) 132 mg/dL 70-110 H TESTED AT [address] [address] POCT-GLUCOSE [id number] 21:55:00* Test Item Value Reference Range Interpretation Comments POC-GLUCOSE METER ([facility]) (test code = 1538) 161 mg/dL 70-110 H TESTED AT [address] [address] POCT-GLUCOSE [id number] 17:57:00* Test Item Value Reference Range Interpretation Comments POC-GLUCOSE METER ([facility]) (test code = 1538) 136 mg/dL 70-110 H TESTED AT [address] [address] TISSUE [id number] 16:12:00Surgical Pathology Report Case: [id number] Authorizing Provider: Neptali Kolb, Collected: 07/04/2018 0827 Ordering Location: [address] Received: 07/04/2018 1313 Pathologist: Be Arenas MD Specimen: Cecum, R/O lymphoma PART A CECAL BIOPSY:GRANULATION TISSUE.NO EVIDENCE OF LYMPHOMA OR CARCINOMA..IMMUNOSTAINS FOR CMV, HSV1, HSV2 ARE NEGATIVE.SPECIAL STAINS FOR FUNGAL ORGANISMS (GMS, PAS) ARE NEGATIVE.SEE DIAGNOSTIC COMMENT. Signing Pathologist Direct Phone Line: [phone] signed by Be Arenas MD on 07/05/2018 at 4:12 PMHistological sections demonstrate portions of granulation tissue. Immunohistochemical studies performed on block A1 demonstrate small mature CD20/PAX5 positive B cells and CD3/CD5 positive T cells scattered amongst the granulation tissue. Immunostains for CMV, HSV1, and HSV2 performed on block A1 are negative. Special stains for fungal organisms (GMS, PAS) are negative.There is no evidence of a malignant process in the tissue sampled, however the sampled material may not be fully associate 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 The prominent B cell population identified in the prior study ([id number]) is not identified in the current study. If there is a strong clinical concern for a malignant process, additional tissue based studies are recommended as the sampled material may not be fully associate 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 [id number], [id number], [id number], [id number] ulcer lower GI bleeding, rule out lymphomaCecum Received in formalin labeled as "cecum, rule out lymphoma" are multiple more than five red-guajardo tissue fragments ranging from 0.1 to 0.4 cm. The specimen is submitted in toto in one cassette. [place]/plperformedThe interpretation of this case included the use of immunohistochemistry or special stains.BLOCK A1- GMS, PAS, HSV1, HSV2, CD20, PAX5, CD3, BA3Veknkdy Slides Exa mined: In-house known positive controls were evaluated along with the test tiss ue. These control slides run alongside of the patients sample show appropriate staining. Internal positive and negative controls when available are evaluated I mmunohistochemistry technical testing was performed at [facility] Pathology Laboratory where it was developed and its performance charact eristics were determined. It has not been cleared or approved by the U.S. Food a nd Drug Administration. The FDA has determined that such clearance or approval i s not necessary. The test is used for clinical purposes. It should not be regard ed as investigational or for research. This laboratory is certified under the Cl inical Laboratory Improvement Amendments of 1988 (CLIA-88) as qualified to perfo high complexity clinical laboratory testing.POCT-GLUCOSE [id number] 12:01:00* Test Item Value Reference Range Interpretation Comments POC-GLUCOSE METER (BEAKER) (test code = 1538) 157 mg/dL 70-110 H TESTED AT [facility] [address] [facility] [address] CBC W/PLT COUNT & AUTO [id number] 07:05:00* Test Item Value Reference Range Interpretation Comments WHITE BLOOD CELL COUNT (BEAKER) (test code = 775) 13.6 K/ L 3.5- 10.5 H RED BLOOD CELL COUNT (BEAKER) (test code = 761) 2.48 M/ L 4.63-6 .08 L HEMOGLOBIN (BEAKER) (test code = 410) 7.8 GM/DL 13.7-17.5 L HEMATOCRIT (BEAKER) (test code = 411) 25.3 % 40.1-51.0 L MEAN CORPUSCULAR VOLUME (BEAKER) (test code = 753) 102.0 fL 79. 0-92.2 H MEAN CORPUSCULAR HEMOGLOBIN (BEAKER) (test code = 751) 31.5 pg 25.7-32.2 MEAN CORPUSCULAR HEMOGLOBIN CONC (BEAKER) (test code = 752) 30.8 GM/DL 32.3-36.5 L RED CELL DISTRIBUTION WIDTH (BEAKER) (test code = 412) 20.4 % 11.6-14.4 H PLATELET COUNT (BEAKER) (test code = 756) 214 K/CU MM 150-450 MEAN PLATELET VOLUME (BEAKER) (test code = 754) 9.9 fL 9.4-12 .4 NUCLEATED RED BLOOD CELLS (BEAKER) (test code = 413) 0 /100 WBC 0 -0 (CELLAVISION MANUAL DIFF)2018-07-05 07:05:00* Test Item Value Reference Range Interpretation Comments NEUTROPHILS - REL (CELLAVISION)(BEAKER) (test code = 2816) 74 % LYMPHOCYTES - REL (CELLAVISION)(BEAKER) (test code = 2817) 4 % MONOCYTES - REL (CELLAVISION)(BEAKER) (test code = 2818) 5 % EOSINOPHILS - REL (CELLAVISION)(BEAKER) (test code = 2819) 16 % MYELOCYTES - REL (CELLAVISION)(BEAKER) (test code = 2822) 1 % 0-0 H NEUTROPHILS - ABS (CELLAVISION)(BEAKER) (test code = 2830) 10.06 K/ul 1.78-5.38 H LYMPHOCYTES - ABS (CELLAVISION)(BEAKER) (test code = 2831) 0.54 K/ul 1.32-3.57 L MONOCYTES - ABS (CELLAVISION)(BEAKER) (test code = 2832) 0.68 K/uL 0.30-0.82 EOSINOPHILS - ABS (CELLAVISION)(BEAKER) (test code = 2834) 2.18 K/uL 0.04-0.54 H MYELOCYTES-ABS (CELLAVISION)(BEAKER) (test code = 2837) 0.14 K/uL 0.00-0.00 H TOTAL COUNTED (BEAKER) (test code = 1351) 100 SMUDGE CELLS (BEAKER) (test code = 1371) Present GIANT PLATELETS (BEAKER) (test code = 313) Present POLYCHROMATOPHILLIC RBCS(BEAKER) (test code = 478) 1+ few POIKILOCYTES (BEAKER) (test code = 966) 2+ moderate ALL CELLS (BEAKER) (test code = 474) 1+ few PLATELET CONCENTRATION (CELLAVISION)(BEAKER) (test code = 3438) Cheryl cohn Received comment: User comments: Slide comments: POCT-GLUCOSE [id number] 06:09:00* Test Item Value Reference Range Interpretation Comments POC-GLUCOSE METER (BEAKER) (test code = 1538) 148 mg/dL 70-110 H TESTED AT [facility] [address] [place] [address] [id number] 05:03:00* Test Item Value Reference Range Interpretation Comments MAGNESIUM (BEAKER) (test code = 627) 1.7 mg/dL 1.6-2.6 BASIC METABOLIC [id number] 05:03:00* Test Item Value Reference Range Interpretation Comments SODIUM (BEAKER) (test code = 381) 138 meq/L 136-145 POTASSIUM (BEAKER) (test code = 379) 4.3 meq/L 3.5-5.1 CHLORIDE (BEAKER) (test code = 382) 109 meq/L 98-107 H CO2 (BEAKER) (test code = 355) 20 meq/L 22-29 L BLOOD UREA NITROGEN (BEAKER) (test code = 354) 11 mg/dL 7-21 CREATININE (BEAKER) (test code = 358) 1.08 mg/dL 0.57-1.25 GLUCOSE RANDOM (BEAKER) (test code = 652) 130 mg/dL 70-105 H CALCIUM (BEAKER) (test code = 697) 9.0 mg/dL 8.4-10.2 EGFR (BEAKER) (test code = 1092) 76 mL/min/1.73 sq m ESTIMATED GFR IS NOT ACCURATE CREATININE CLEARANCE IN PREDICTING GLOMERULAR FILTRATION RATE. ESTIMATED GFR IS NOT APPLICABLE FOR DIALYSIS PATIENTS. Specimen moderately ictericHEPATIC FUNCTION [id number] 05:03:00* Test Item Value Reference Range Interpretation Comments TOTAL PROTEIN (BEAKER) (test code = 770) 5.8 gm/dL 6.0-8.3 L ALBUMIN (BEAKER) (test code = 1145) 3.0 g/dL 3.5-5.0 L BILIRUBIN TOTAL (BEAKER) (test code = 377) 7.0 mg/dL 0.2-1.2 H BILIRUBIN DIRECT (BEAKER) (test code = 706) 5.2 mg/dL 0.1-0.5 H ALKALINE PHOSPHATASE (BEAKER) (test code = 346) 276 U/L 40-150 H AST (SGOT) (BEAKER) (test code = 353) 205 U/L 5-34 H ALT (SGPT) (BEAKER) (test code = 347) 112 U/L 6-55 H Specimen moderately [id number] 04:56:00* Test Item Value Reference Range Interpretation Comments PARTIAL THROMBOPLASTIN TIME (BEAKER) (test code = 760) 49.3 seconds 22.5-36.0 H PROTHROMBIN [id number] 04:55:00* Test Item Value Reference Range Interpretation Comments PROTIME (BEAKER) (test code = 759) 16.0 seconds 11.7-14.7 H INR (BEAKER) (test code = 370) 1.4 <=5.9 RECOMMENDED COUMADIN/WARFARIN INR THERAPY RANGESSTANDARD DOSE: 2.0 - 3.0 Inclu herb: PROPHYLAXIS for venous thrombosis, systemic embolization; TREATMENT for giulia ous thrombosis and/or pulmonary embolus.HIGH RISK: Target INR is 2.5-3.5 for pat ients with mechanical heart valves.POCT-GLUCOSE [id number] 00:01:00* Test Item Value Reference Range Interpretation Comments POC-GLUCOSE METER (BEAKER) (test code = 1538) 144 mg/dL 70-110 H TESTED AT [facility] [address] [facility] [address] POCT-GLUCOSE [id number] 18:04:00* Test Item Value Reference Range Interpretation Comments POC-GLUCOSE METER (BEAKER) (test code = 1538) 113 mg/dL 70-110 H TESTED AT [facility] [address] [facility] [address] POCT-GLUCOSE [id number] 11:48:00* Test Item Value Reference Range Interpretation Comments POC-GLUCOSE METER (BEAKER) (test code = 1538) 92 mg/dL 70-110 TESTED AT [facility] [address] [facility] [address] CBC W/PLT COUNT & AUTO [id number] 10:15:00* Test Item Value Reference Range Interpretation Comments WHITE BLOOD CELL COUNT (BEAKER) (test code = 775) 15.3 K/ L 3.5- 10.5 H RED BLOOD CELL COUNT (BEAKER) (test code = 761) 2.66 M/ L 4.63-6 .08 L HEMOGLOBIN (BEAKER) (test code = 410) 8.4 GM/DL 13.7-17.5 L HEMATOCRIT (BEAKER) (test code = 411) 26.6 % 40.1-51.0 L MEAN CORPUSCULAR VOLUME (BEAKER) (test code = 753) 100.0 fL 79. 0-92.2 H MEAN CORPUSCULAR HEMOGLOBIN (BEAKER) (test code = 751) 31.6 pg 25.7-32.2 MEAN CORPUSCULAR HEMOGLOBIN CONC (BEAKER) (test code = 752) 31.6 GM/DL 32.3-36.5 L RED CELL DISTRIBUTION WIDTH (BEAKER) (test code = 412) 21.3 % 11.6-14.4 H PLATELET COUNT (BEAKER) (test code = 756) 206 K/CU MM 150-450 MEAN PLATELET VOLUME (BEAKER) (test code = 754) 10.1 fL 9.4-12 .4 NUCLEATED RED BLOOD CELLS (BEAKER) (test code = 413) 0 /100 WBC 0 -0 (CELLAVISION MANUAL DIFF)2018-07-04 10:15:00* Test Item Value Reference Range Interpretation Comments NEUTROPHILS - REL (CELLAVISION)(BEAKER) (test code = 2816) 69 % LYMPHOCYTES - REL (CELLAVISION)(BEAKER) (test code = 2817) 3 % MONOCYTES - REL (CELLAVISION)(BEAKER) (test code = 2818) 13 % EOSINOPHILS - REL (CELLAVISION)(BEAKER) (test code = 2819) 14 % BASOPHILS - REL (CELLAVISION)(BEAKER) (test code = 2820) 1 % NEUTROPHILS - ABS (CELLAVISION)(BEAKER) (test code = 2830) 10.56 K/ul 1.78-5.38 H LYMPHOCYTES - ABS (CELLAVISION)(BEAKER) (test code = 2831) 0.46 K/ul 1.32-3.57 L MONOCYTES - ABS (CELLAVISION)(BEAKER) (test code = 2832) 1.99 K/uL 0.30-0.82 H EOSINOPHILS - ABS (CELLAVISION)(BEAKER) (test code = 2834) 2.14 K/uL 0.04-0.54 H BASOPHILS - ABS (CELLAVISION)(BEAKER) (test code = 2835) 0.15 K/uL 0.01-0.08 H TOTAL COUNTED (BEAKER) (test code = 1351) 100 WBC MORPHOLOGY (BEAKER) (test code = 487) Normal PLT MORPHOLOGY (BEAKER) (test code = 486) Normal POLYCHROMATOPHILLIC RBCS(BEAKER) (test code = 478) 1+ few HYPOCHROMIA (BEAKER) (test code = 963) 1+ few ARTIFACT (CELLAVISION)(BEAKER) (test code = 3432) Present PLATELET CONCENTRATION (CELLAVISION)(BEAKER) (test code = 3438) Cheryl quate Received comment: User comments: Slide comments: POCT-GLUCOSE [id number] 06:36:00* Test Item Value Reference Range Interpretation Comments POC-GLUCOSE METER (BEAKER) (test code = 1538) 107 mg/dL 70-110 TESTED AT [facility] [address] [facility] [id number] 05:42:00* Test Item Value Reference Range Interpretation Comments MAGNESIUM (BEAKER) (test code = 627) 1.9 mg/dL 1.6-2.6 Specimen slightly hemolyzed BASIC METABOLIC [id number] 05:42:00* Test Item Value Reference Range Interpretation Comments SODIUM (BEAKER) (test code = 381) 137 meq/L 136-145 POTASSIUM (BEAKER) (test code = 379) 4.7 meq/L 3.5-5.1 Specimen slightly hemolyzed CHLORIDE (BEAKER) (test code = 382) 109 meq/L 98-107 H CO2 (BEAKER) (test code = 355) 19 meq/L 22-29 L BLOOD UREA NITROGEN (BEAKER) (test code = 354) 12 mg/dL 7-21 CREATININE (BEAKER) (test code = 358) 1.02 mg/dL 0.57-1.25 Specimen slightly hemolyzed GLUCOSE RANDOM (BEAKER) (test code = 652) 87 mg/dL 70-105 CALCIUM (BEAKER) (test code = 697) 9.2 mg/dL 8.4-10.2 EGFR (BEAKER) (test code = 1092) 81 mL/min/1.73 sq m ESTIMATED GFR IS NOT ACCURATE CREATININE CLEARANCE IN PREDICTING GLOMERULAR FILTRATION RATE. ESTIMATED GFR IS NOT APPLICABLE FOR DIALYSIS PATIENTS. Specimen moderately ictericHEPATIC FUNCTION [id number] 05:42:00* Test Item Value Reference Range Interpretation Comments TOTAL PROTEIN (BEAKER) (test code = 770) 6.1 gm/dL 6.0-8.3 Specimen slightly hemolyzed ALBUMIN (BEAKER) (test code = 1145) 3.1 g/dL 3.5-5.0 L Specimen slightly hemolyzed BILIRUBIN TOTAL (BEAKER) (test code = 377) 8.1 mg/dL 0.2-1.2 H Specimen slightly hemolyzed BILIRUBIN DIRECT (BEAKER) (test code = 706) 5.6 mg/dL 0.1-0.5 H Specimen slightly hemolyzed ALKALINE PHOSPHATASE (BEAKER) (test code = 346) 295 U/L 40-150 H AST (SGOT) (BEAKER) (test code = 353) 212 U/L 5-34 H Specimen slightly hemolyzed ALT (SGPT) (BEAKER) (test code = 347) 115 U/L 6-55 H Specimen slightly hemolyzed Specimen moderately [id number] 05:35:00* Test Item Value Reference Range Interpretation Comments PARTIAL THROMBOPLASTIN TIME (BEAKER) (test code = 760) 40.6 seconds 22.5-36.0 H PROTHROMBIN [id number] 05:34:00* Test Item Value Reference Range Interpretation Comments PROTIME (BEAKER) (test code = 759) 16.0 seconds 11.7-14.7 H INR (BEAKER) (test code = 370) 1.3 <=5.9 RECOMMENDED COUMADIN/WARFARIN INR THERAPY RANGESSTANDARD DOSE: 2.0 - 3.0 Inclu herb: PROPHYLAXIS for venous thrombosis, systemic embolization; TREATMENT for giulia ous thrombosis and/or pulmonary embolus.HIGH RISK: Target INR is 2.5-3.5 for pat ients with mechanical heart valves.POCT-GLUCOSE [id number] 00:32:00* Test Item Value Reference Range Interpretation Comments POC-GLUCOSE METER (BEAKER) (test code = 1538) 106 mg/dL 70-110 TESTED AT [facility] [address] [facility] [address] RAD, CHEST, 1 VIEW, NON [id number] 18:48:00Reason for exam:->SOBShould this be performed at the bedside?->YesFINAL REPORT Chest dated 07/03/2018 COMPARISON: Same day Clinical Information: SOB Comment: Heart is enlarged. Pulmonary vasculature is indistinct. Interstitial disease is seen bilaterally suggestive of vascular congestion or pulmonary edema. No pleural effusion or pneumothorax is seen. Tracheostomy tube and feeding tube remain in place. Impression: No interval change. Signed: Keith Garcia Verified Date/Time: 07/03/2018 18:48:11 Reading Location: [address] Consult Reading Room -GLUCOSE [id number] 17:36:00* Test Item Value Reference Range Interpretation Comments POC-GLUCOSE METER (BEAKER) (test code = 1538) 130 mg/dL 70-110 H TESTED AT [facility] [address] [facility] [address] HEMOGLOBIN AND [id number] 14:44:00* Test Item Value Reference Range Interpretation Comments HEMOGLOBIN (BEAKER) (test code = 410) 8.1 GM/DL 13.7-17.5 L HEMATOCRIT (BEAKER) (test code = 411) 25.8 % 40.1-51.0 L CBC W/PLT COUNT & AUTO [id number] 12:53:00* Test Item Value Reference Range Interpretation Comments WHITE BLOOD CELL COUNT (BEAKER) (test code = 775) 18.1 K/ L 3.5- 10.5 H RED BLOOD CELL COUNT (BEAKER) (test code = 761) 2.55 M/ L 4.63-6 .08 L HEMOGLOBIN (BEAKER) (test code = 410) 8.1 GM/DL 13.7-17.5 L HEMATOCRIT (BEAKER) (test code = 411) 25.4 % 40.1-51.0 L MEAN CORPUSCULAR VOLUME (BEAKER) (test code = 753) 99.6 fL 79. 0-92.2 H MEAN CORPUSCULAR HEMOGLOBIN (BEAKER) (test code = 751) 31.8 pg 25.7-32.2 MEAN CORPUSCULAR HEMOGLOBIN CONC (BEAKER) (test code = 752) 31.9 GM/DL 32.3-36.5 L RED CELL DISTRIBUTION WIDTH (BEAKER) (test code = 412) 21.6 % 11.6-14.4 H PLATELET COUNT (BEAKER) (test code = 756) 195 K/CU MM 150-450 MEAN PLATELET VOLUME (BEAKER) (test code = 754) 10.1 fL 9.4-12 .4 NUCLEATED RED BLOOD CELLS (BEAKER) (test code = 413) 0 /100 WBC 0 -0 (CELLAVISION MANUAL DIFF)2018-07-03 12:53:00* Test Item Value Reference Range Interpretation Comments NEUTROPHILS - REL (CELLAVISION)(BEAKER) (test code = 2816) 70 % LYMPHOCYTES - REL (CELLAVISION)(BEAKER) (test code = 2817) 5 % MONOCYTES - REL (CELLAVISION)(BEAKER) (test code = 2818) 8 % EOSINOPHILS - REL (CELLAVISION)(BEAKER) (test code = 2819) 16 % BASOPHILS - REL (CELLAVISION)(BEAKER) (test code = 2820) 1 % NEUTROPHILS - ABS (CELLAVISION)(BEAKER) (test code = 2830) 12.67 K/ul 1.78-5.38 H LYMPHOCYTES - ABS (CELLAVISION)(BEAKER) (test code = 2831) 0.91 K/ul 1.32-3.57 L MONOCYTES - ABS (CELLAVISION)(BEAKER) (test code = 2832) 1.45 K/uL 0.30-0.82 H EOSINOPHILS - ABS (CELLAVISION)(BEAKER) (test code = 2834) 2.90 K/uL 0.04-0.54 H BASOPHILS - ABS (CELLAVISION)(BEAKER) (test code = 2835) 0.18 K/uL 0.01-0.08 H TOTAL COUNTED (BEAKER) (test code = 1351) 100 WBC MORPHOLOGY (BEAKER) (test code = 487) Normal PLT MORPHOLOGY (BEAKER) (test code = 486) Normal POLYCHROMATOPHILLIC RBCS(BEAKER) (test code = 478) 1+ few ANISOCYTOSIS (BEAKER) (test code = 961) 1+ few MACROCYTES (BEAKER) (test code = 964) 1+ few POIKILOCYTES (BEAKER) (test code = 966) 1+ few OVALOCYTES (BEAKER) (test code = 477) 1+ few TEAR DROP CELLS (BEAKER) (test code = 481) 1+ few ARTIFACT (CELLAVISION)(BEAKER) (test code = 3432) Present PLATELET CONCENTRATION (CELLAVISION)(BEAKER) (test code = 3438) Cheryl quate Received comment: User comments: Slide comments: RAD, CHEST, 1 VIEW, NON DEPT 2018-07-03 07:23:00Reason for exam:->Pulmonary edema evaluationShould this be performed at the bedside?->YesFINAL REPORT Follow up Chest radiograph Clinical History: Pulmonary edema evaluationComparison: July 02, 2018Views: One AP lordotic Chest x-ray:The cardiac and mediastinal silhouettes are unchanged. There is no evidence of a pneumothorax. There is no evidence of a pleural effusion. There is no evidence of overt cardiac failure. There is no evidence of a focal parenchymal opacity. A tracheostomy tube and feeding tube are satisfactorily positioned and unchanged. This is a suboptimal inspiratory effort with a nonspecific increased interstitial pattern. These findings have improved Impression:Decreased interstitial pattern suggesting decreased vascular congestion Signed: Kai Rogel MDReport Verified Date/Time: 07/03/2018 07:23:40 Reading Location: [facility] Radiology Reading Room -GLUCOSE [id number] 06:01:00* Test Item Value Reference Range Interpretation Comments POC-GLUCOSE METER (BEAKER) (test code = 1538) 203 mg/dL 70-110 H TESTED AT [facility] [address] [facility] [address] [id number] 05:39:00* Test Item Value Reference Range Interpretation Comments MAGNESIUM (BEAKER) (test code = 627) 1.7 mg/dL 1.6-2.6 BASIC METABOLIC [id number] 05:39:00* Test Item Value Reference Range Interpretation Comments SODIUM (BEAKER) (test code = 381) 139 meq/L 136-145 POTASSIUM (BEAKER) (test code = 379) 4.5 meq/L 3.5-5.1 CHLORIDE (BEAKER) (test code = 382) 111 meq/L 98-107 H CO2 (BEAKER) (test code = 355) 19 meq/L 22-29 L BLOOD UREA NITROGEN (BEAKER) (test code = 354) 14 mg/dL 7-21 CREATININE (BEAKER) (test code = 358) 1.06 mg/dL 0.57-1.25 GLUCOSE RANDOM (BEAKER) (test code = 652) 140 mg/dL 70-105 H CALCIUM (BEAKER) (test code = 697) 8.9 mg/dL 8.4-10.2 EGFR (BEAKER) (test code = 1092) 78 mL/min/1.73 sq m ESTIMATED GFR IS NOT ACCURATE CREATININE CLEARANCE IN PREDICTING GLOMERULAR FILTRATION RATE. ESTIMATED GFR IS NOT APPLICABLE FOR DIALYSIS PATIENTS. Specimen moderately ictericHEPATIC FUNCTION [id number] 05:39:00* Test Item Value Reference Range Interpretation Comments TOTAL PROTEIN (BEAKER) (test code = 770) 5.9 gm/dL 6.0-8.3 L ALBUMIN (BEAKER) (test code = 1145) 3.1 g/dL 3.5-5.0 L BILIRUBIN TOTAL (BEAKER) (test code = 377) 8.3 mg/dL 0.2-1.2 H BILIRUBIN DIRECT (BEAKER) (test code = 706) 6.0 mg/dL 0.1-0.5 H ALKALINE PHOSPHATASE (BEAKER) (test code = 346) 313 U/L 40-150 H AST (SGOT) (BEAKER) (test code = 353) 191 U/L 5-34 H ALT (SGPT) (BEAKER) (test code = 347) 125 U/L 6-55 H Specimen moderately [id number] 05:10:00* Test Item Value Reference Range Interpretation Comments PARTIAL THROMBOPLASTIN TIME (BEAKER) (test code = 760) 41.9 seconds 22.5-36.0 H PROTHROMBIN [id number] 05:09:00* Test Item Value Reference Range Interpretation Comments PROTIME (BEAKER) (test code = 759) 15.5 seconds 11.7-14.7 H INR (BEAKER) (test code = 370) 1.3 <=5.9 RECOMMENDED COUMADIN/WARFARIN INR THERAPY RANGESSTANDARD DOSE: 2.0 - 3.0 Inclu herb: PROPHYLAXIS for venous thrombosis, systemic embolization; TREATMENT for giulia ous thrombosis and/or pulmonary embolus.HIGH RISK: Target INR is 2.5-3.5 for pat ients with mechanical heart valves.HEMOGLOBIN AND [id number] 00:58:00 * Test Item Value Reference Range Interpretation Comments HEMOGLOBIN (BEAKER) (test code = 410) 8.3 GM/DL 13.7-17.5 L HEMATOCRIT (BEAKER) (test code = 411) 26.1 % 40.1-51.0 L POCT-GLUCOSE [id number] 23:25:00* Test Item Value Reference Range Interpretation Comments POC-GLUCOSE METER (BEAKER) (test code = 1538) 179 mg/dL 70-110 H TESTED AT [place] [id number] [facility] [address] POCT-GLUCOSE [id number] 18:01:00* Test Item Value Reference Range Interpretation Comments POC-GLUCOSE METER (BEAKER) (test code = 1538) 175 mg/dL 70-110 H TESTED AT [place] [id number] [facility] [address] HEMOGLOBIN AND [id number] 17:25:00* Test Item Value Reference Range Interpretation Comments HEMOGLOBIN (BEAKER) (test code = 410) 7.9 GM/DL 13.7-17.5 L HEMATOCRIT (BEAKER) (test code = 411) 24.0 % 40.1-51.0 L CBC W/PLT COUNT & AUTO [id number] 13:26:00* Test Item Value Reference Range Interpretation Comments WHITE BLOOD CELL COUNT (BEAKER) (test code = 775) 21.0 K/ L 3.5- 10.5 H RED BLOOD CELL COUNT (BEAKER) (test code = 761) 2.51 M/ L 4.63-6 .08 L HEMOGLOBIN (BEAKER) (test code = 410) 7.9 GM/DL 13.7-17.5 L HEMATOCRIT (BEAKER) (test code = 411) 25.0 % 40.1-51.0 L MEAN CORPUSCULAR VOLUME (BEAKER) (test code = 753) 99.6 fL 79. 0-92.2 H MEAN CORPUSCULAR HEMOGLOBIN (BEAKER) (test code = 751) 31.5 pg 25.7-32.2 MEAN CORPUSCULAR HEMOGLOBIN CONC (BEAKER) (test code = 752) 31.6 GM/DL 32.3-36.5 L RED CELL DISTRIBUTION WIDTH (BEAKER) (test code = 412) 21.4 % 11.6-14.4 H PLATELET COUNT (BEAKER) (test code = 756) 208 K/CU MM 150-450 MEAN PLATELET VOLUME (BEAKER) (test code = 754) 10.4 fL 9.4-12 .4 NUCLEATED RED BLOOD CELLS (BEAKER) (test code = 413) 0 /100 WBC 0 -0 (CELLAVISION MANUAL DIFF)2018-07-02 13:26:00* Test Item Value Reference Range Interpretation Comments NEUTROPHILS - REL (CELLAVISION)(BEAKER) (test code = 2816) 69 % LYMPHOCYTES - REL (CELLAVISION)(BEAKER) (test code = 2817) 7 % MONOCYTES - REL (CELLAVISION)(BEAKER) (test code = 2818) 4 % EOSINOPHILS - REL (CELLAVISION)(BEAKER) (test code = 2819) 17 % BASOPHILS - REL (CELLAVISION)(BEAKER) (test code = 2820) 1 % ATYPICAL LYMPHOCYTES - REL (CELLAVISION)(BEAKER) (test code = 2829) 1 % 0-0 H NEUTROPHILS - ABS (CELLAVISION)(BEAKER) (test code = 2830) 14.49 K/ul 1.78-5.38 H LYMPHOCYTES - ABS (CELLAVISION)(BEAKER) (test code = 2831) 1.47 K/ul 1.32-3.57 MONOCYTES - ABS (CELLAVISION)(BEAKER) (test code = 2832) 0.84 K/uL 0.30-0.82 H EOSINOPHILS - ABS (CELLAVISION)(BEAKER) (test code = 2834) 3.57 K/uL 0.04-0.54 H BASOPHILS - ABS (CELLAVISION)(BEAKER) (test code = 2835) 0.21 K/uL 0.01-0.08 H ATYPICAL LYMPHOCYTES - ABS (CELLAVISION)(BEAKER) (test code = 2858) 0.21 K/uL 0.00-0.00 H TOTAL COUNTED (BEAKER) (test code = 1351) 100 SMUDGE CELLS (BEAKER) (test code = 1371) Present GIANT PLATELETS (BEAKER) (test code = 313) Present POLYCHROMATOPHILLIC RBCS(BEAKER) (test code = 478) 2+ moderate HYPOCHROMIA (BEAKER) (test code = 963) 1+ few ANISOCYTOSIS (BEAKER) (test code = 961) 1+ few ARTIFACT (CELLAVISION)(BEAKER) (test code = 3432) Present PLATELET CONCENTRATION (CELLAVISION)(BEAKER) (test code = 3438) Cheryl quate Received comment: User comments: Slide comments: POCT-GLUCOSE [id number] 11:58:00* Test Item Value Reference Range Interpretation Comments POC-GLUCOSE METER (BEAKER) (test code = 1538) 148 mg/dL 70-110 H TESTED AT [facility] [address] [facility] [address] RAD, CHEST, 1 VIEW, NON [id number] 07:41:00Reason for exam:->Pulmonary edema evaluationShould this be performed at the bedside?->YesFINAL REPORT Portable chest. CLINICAL HISTORY: Pulmonary edema evaluation. COMPARISON STUDY: Chest x-ray from yesterday. FINDINGS: The cardiac silhouette is enlarged. The pulmonary parenchyma demonstrate mild interstitial and patchy airspace opacities. The support lines and tubes are unchanged. No pneumothorax is seen. Degenerative changes are noted. IMPRESSION: No significant change. Signed: Andrew Sloan MDReport Verified Date/Time: 07/02/2018 07:41:39 Reading Location: [facility] Radiology Reading Room [id number] 07:01:00* Test Item Value Reference Range Interpretation Comments PARTIAL THROMBOPLASTIN TIME (BEAKER) (test code = 760) 46.2 seconds 22.5-36.0 H PROTHROMBIN [id number] 06:59:00* Test Item Value Reference Range Interpretation Comments PROTIME (BEAKER) (test code = 759) 15.7 seconds 11.7-14.7 H INR (BEAKER) (test code = 370) 1.3 <=5.9 RECOMMENDED COUMADIN/WARFARIN INR THERAPY RANGESSTANDARD DOSE: 2.0 - 3.0 Inclu herb: PROPHYLAXIS for venous thrombosis, systemic embolization; TREATMENT for giulia ous thrombosis and/or pulmonary embolus.HIGH RISK: Target INR is 2.5-3.5 for pat ients with mechanical heart valves.HEMOGLOBIN AND [id number] 06:48:00 * Test Item Value Reference Range Interpretation Comments HEMOGLOBIN (BEAKER) (test code = 410) 7.9 GM/DL 13.7-17.5 L HEMATOCRIT (BEAKER) (test code = 411) 25.0 % 40.1-51.0 L POCT-GLUCOSE [id number] 06:17:00* Test Item Value Reference Range Interpretation Comments POC-GLUCOSE METER (BEAKER) (test code = 1538) 170 mg/dL 70-110 H TESTED AT [facility] [address] [facility] [address] CREATINE KINASE (CK)2018-07-02 03:50:00* Test Item Value Reference Range Interpretation Comments CREATINE KINASE TOTAL (BEAKER) (test code = 380) 17 U/L 29-20 0 L [id number] 03:44:00* Test Item Value Reference Range Interpretation Comments MAGNESIUM (BEAKER) (test code = 627) 1.9 mg/dL 1.6-2.6 Specimen slightly hemolyzed BASIC METABOLIC [id number] 03:44:00* Test Item Value Reference Range Interpretation Comments SODIUM (BEAKER) (test code = 381) 138 meq/L 136-145 POTASSIUM (BEAKER) (test code = 379) 4.3 meq/L 3.5-5.1 Specimen slightly hemolyzed CHLORIDE (BEAKER) (test code = 382) 111 meq/L 98-107 H CO2 (BEAKER) (test code = 355) 20 meq/L 22-29 L BLOOD UREA NITROGEN (BEAKER) (test code = 354) 14 mg/dL 7-21 CREATININE (BEAKER) (test code = 358) 1.09 mg/dL 0.57-1.25 Specimen slightly hemolyzed GLUCOSE RANDOM (BEAKER) (test code = 652) 135 mg/dL 70-105 H CALCIUM (BEAKER) (test code = 697) 8.3 mg/dL 8.4-10.2 L EGFR (BEAKER) (test code = 1092) 75 mL/min/1.73 sq m ESTIMATED GFR IS NOT ACCURATE CREATININE CLEARANCE IN PREDICTING GLOMERULAR FILTRATION RATE. ESTIMATED GFR IS NOT APPLICABLE FOR DIALYSIS PATIENTS. Specimen moderately ictericHEPATIC FUNCTION [id number] 03:44:00* Test Item Value Reference Range Interpretation Comments TOTAL PROTEIN (BEAKER) (test code = 770) 5.6 gm/dL 6.0-8.3 L Specimen slightly hemolyzed ALBUMIN (BEAKER) (test code = 1145) 3.0 g/dL 3.5-5.0 L Specimen slightly hemolyzed BILIRUBIN TOTAL (BEAKER) (test code = 377) 8.6 mg/dL 0.2-1.2 H Specimen slightly hemolyzed BILIRUBIN DIRECT (BEAKER) (test code = 706) 6.3 mg/dL 0.1-0.5 H Specimen slightly hemolyzed ALKALINE PHOSPHATASE (BEAKER) (test code = 346) 325 U/L 40-150 H AST (SGOT) (BEAKER) (test code = 353) 183 U/L 5-34 H Specimen slightly hemolyzed ALT (SGPT) (BEAKER) (test code = 347) 122 U/L 6-55 H Specimen slightly hemolyzed Specimen moderately ictericHEMOGLOBIN AND [id number] 03:08:00* Test Item Value Reference Range Interpretation Comments HEMOGLOBIN (BEAKER) (test code = 410) 7.9 GM/DL 13.7-17.5 L HEMATOCRIT (BEAKER) (test code = 411) 24.8 % 40.1-51.0 L POCT-GLUCOSE [id number] 23:24:00* Test Item Value Reference Range Interpretation Comments POC-GLUCOSE METER (BEAKER) (test code = 1538) 155 mg/dL 70-110 H TESTED AT [facility] [address] [facility] [address] HEMOGLOBIN AND [id number] 18:35:00* Test Item Value Reference Range Interpretation Comments HEMOGLOBIN (BEAKER) (test code = 410) 7.9 GM/DL 13.7-17.5 L HEMATOCRIT (BEAKER) (test code = 411) 24.1 % 40.1-51.0 L POCT-GLUCOSE [id number] 17:49:00* Test Item Value Reference Range Interpretation Comments POC-GLUCOSE METER (BEAKER) (test code = 1538) 148 mg/dL 70-110 H TESTED AT [facility] [address] [facility] [address] POCT-GLUCOSE [id number] 11:44:00* Test Item Value Reference Range Interpretation Comments POC-GLUCOSE METER (BEAKER) (test code = 1538) 151 mg/dL 70-110 H TESTED AT [facility] [address] [facility] [address] HEMOGLOBIN AND [id number] 10:59:00* Test Item Value Reference Range Interpretation Comments HEMOGLOBIN (BEAKER) (test code = 410) 8.0 GM/DL 13.7-17.5 L HEMATOCRIT (BEAKER) (test code = 411) 24.0 % 40.1-51.0 L RAD, CHEST, 1 VIEW, NON [id number] 08:47:00Reason for exam:->Pulmonary edema evaluationShould this be performed at the bedside?->YesFINAL REPORT Chest, one view HISTORY: Pulmonary edema evaluation Comparison: 06/30/2018 Findings: Lungs: Stable bilateral airspace disease. Heart: Mild prominence of the cardiac silhouette, unchanged from prior study. Pleura: No pleural effusion or pneumothorax. Bones: Unremarkable. Lines/tubes: Unchanged in position. IMPRESSION: No significant interval change. Signed: Alonzo Valenzuela Verified Date/Time: 07/01/2018 08:47:41 Reading Location: [facility] Diagnostic Imaging Reading Room - [place] [address]120 -GLUCOSE [id number] 06:47:00 * Test Item Value Reference Range Interpretation Comments POC-GLUCOSE METER (BEAKER) (test code = 1538) 153 mg/dL 70-110 H TESTED AT [facility] [address] [facility] [address] [id number] 04:06:00* Test Item Value Reference Range Interpretation Comments MAGNESIUM (BEAKER) (test code = 627) 1.9 mg/dL 1.6-2.6 BASIC METABOLIC [id number] 04:06:00* Test Item Value Reference Range Interpretation Comments SODIUM (BEAKER) (test code = 381) 138 meq/L 136-145 POTASSIUM (BEAKER) (test code = 379) 3.9 meq/L 3.5-5.1 CHLORIDE (BEAKER) (test code = 382) 112 meq/L 98-107 H CO2 (BEAKER) (test code = 355) 18 meq/L 22-29 L BLOOD UREA NITROGEN (BEAKER) (test code = 354) 14 mg/dL 7-21 CREATININE (BEAKER) (test code = 358) 1.21 mg/dL 0.57-1.25 GLUCOSE RANDOM (BEAKER) (test code = 652) 148 mg/dL 70-105 H CALCIUM (BEAKER) (test code = 697) 8.2 mg/dL 8.4-10.2 L EGFR (BEAKER) (test code = 1092) 67 mL/min/1.73 sq m ESTIMATED GFR IS NOT ACCURATE CREATININE CLEARANCE IN PREDICTING GLOMERULAR FILTRATION RATE. ESTIMATED GFR IS NOT APPLICABLE FOR DIALYSIS PATIENTS. Specimen moderately ictericHEPATIC FUNCTION [id number] 04:06:00* Test Item Value Reference Range Interpretation Comments TOTAL PROTEIN (BEAKER) (test code = 770) 5.2 gm/dL 6.0-8.3 L ALBUMIN (BEAKER) (test code = 1145) 2.8 g/dL 3.5-5.0 L BILIRUBIN TOTAL (BEAKER) (test code = 377) 10.0 mg/dL 0.2-1.2 H BILIRUBIN DIRECT (BEAKER) (test code = 706) 7.2 mg/dL 0.1-0.5 H ALKALINE PHOSPHATASE (BEAKER) (test code = 346) 293 U/L 40-150 H AST (SGOT) (BEAKER) (test code = 353) 200 U/L 5-34 H ALT (SGPT) (BEAKER) (test code = 347) 145 U/L 6-55 H Specimen moderately [id number] 03:50:00* Test Item Value Reference Range Interpretation Comments PARTIAL THROMBOPLASTIN TIME (BEAKER) (test code = 760) 46.8 seconds 22.5-36.0 H PROTHROMBIN [id number] 03:49:00* Test Item Value Reference Range Interpretation Comments PROTIME (BEAKER) (test code = 759) 16.7 seconds 11.7-14.7 H INR (BEAKER) (test code = 370) 1.4 <=5.9 RECOMMENDED COUMADIN/WARFARIN INR THERAPY RANGESSTANDARD DOSE: 2.0 - 3.0 Inclu herb: PROPHYLAXIS for venous thrombosis, systemic embolization; TREATMENT for giulia ous thrombosis and/or pulmonary embolus.HIGH RISK: Target INR is 2.5-3.5 for pat ients with mechanical heart valves.CBC W/PLT COUNT & AUTO [id number] 03:32:00* Test Item Value Reference Range Interpretation Comments WHITE BLOOD CELL COUNT (BEAKER) (test code = 775) 22.1 K/ L 3.5- 10.5 H RED BLOOD CELL COUNT (BEAKER) (test code = 761) 2.47 M/ L 4.63-6 .08 L HEMOGLOBIN (BEAKER) (test code = 410) 7.7 GM/DL 13.7-17.5 L HEMATOCRIT (BEAKER) (test code = 411) 24.3 % 40.1-51.0 L MEAN CORPUSCULAR VOLUME (BEAKER) (test code = 753) 98.4 fL 79. 0-92.2 H MEAN CORPUSCULAR HEMOGLOBIN (BEAKER) (test code = 751) 31.2 pg 25.7-32.2 MEAN CORPUSCULAR HEMOGLOBIN CONC (BEAKER) (test code = 752) 31.7 GM/DL 32.3-36.5 L RED CELL DISTRIBUTION WIDTH (BEAKER) (test code = 412) 22.0 % 11.6-14.4 H PLATELET COUNT (BEAKER) (test code = 756) 173 K/CU MM 150-450 MEAN PLATELET VOLUME (BEAKER) (test code = 754) 10.2 fL 9.4-12 .4 NUCLEATED RED BLOOD CELLS (BEAKER) (test code = 413) 0 /100 WBC 0 -0 NEUTROPHILS RELATIVE PERCENT (BEAKER) (test code = 429) 68 % LYMPHOCYTES RELATIVE PERCENT (BEAKER) (test code = 430) 6 % MONOCYTES RELATIVE PERCENT (BEAKER) (test code = 431) 8 % EOSINOPHILS RELATIVE PERCENT (BEAKER) (test code = 432) 17 % BASOPHILS RELATIVE PERCENT (BEAKER) (test code = 437) 0 % NEUTROPHILS ABSOLUTE COUNT (BEAKER) (test code = 670) 15.00 K/ L 1.78-5.38 H LYMPHOCYTES ABSOLUTE COUNT (BEAKER) (test code = 414) 1.30 K/ L 1.32-3.57 L MONOCYTES ABSOLUTE COUNT (BEAKER) (test code = 415) 1.68 K/ L 0. 30-0.82 H EOSINOPHILS ABSOLUTE COUNT (BEAKER) (test code = 416) 3.64 K/ L 0.04-0.54 H BASOPHILS ABSOLUTE COUNT (BEAKER) (test code = 417) 0.07 K/ L 0. 01-0.08 IMMATURE GRANULOCYTES-RELATIVE PERCENT (BEAKER) (test code = 2801) 2 % 0-1 H HEMOGLOBIN AND [id number] 03:20:00* Test Item Value Reference Range Interpretation Comments HEMOGLOBIN (BEAKER) (test code = 410) 7.7 GM/DL 13.7-17.5 L HEMATOCRIT (BEAKER) (test code = 411) 24.3 % 40.1-51.0 L POCT-GLUCOSE [id number] 23:51:00* Test Item Value Reference Range Interpretation Comments POC-GLUCOSE METER (BEAKER) (test code = 1538) 146 mg/dL 70-110 H TESTED AT [address] [address] POCT-GLUCOSE [id number] 17:40:00* Test Item Value Reference Range Interpretation Comments POC-GLUCOSE METER (BEAKER) (test code = 1538) 194 mg/dL 70-110 H TESTED AT [address] [address] HEMOGLOBIN AND [id number] 17:33:00* Test Item Value Reference Range Interpretation Comments HEMOGLOBIN (BEAKER) (test code = 410) 7.9 GM/DL 13.7-17.5 L HEMATOCRIT (BEAKER) (test code = 411) 24.6 % 40.1-51.0 L CBC W/PLT COUNT & AUTO [id number] 15:29:00* Test Item Value Reference Range Interpretation Comments WHITE BLOOD CELL COUNT (BEAKER) (test code = 775) 25.2 K/ L 3.5- 10.5 H RED BLOOD CELL COUNT (BEAKER) (test code = 761) 2.52 M/ L 4.63-6 .08 L HEMOGLOBIN (BEAKER) (test code = 410) 8.0 GM/DL 13.7-17.5 L HEMATOCRIT (BEAKER) (test code = 411) 25.6 % 40.1-51.0 L MEAN CORPUSCULAR VOLUME (BEAKER) (test code = 753) 101.6 fL 79. 0-92.2 H Discordant MCV results compared to previous results; clinical correlation required. MEAN CORPUSCULAR HEMOGLOBIN (BEAKER) (test code = 751) 31.7 pg 25.7-32.2 MEAN CORPUSCULAR HEMOGLOBIN CONC (BEAKER) (test code = 752) 31.3 GM/DL 32.3-36.5 L RED CELL DISTRIBUTION WIDTH (BEAKER) (test code = 412) 21.9 % 11.6-14.4 H PLATELET COUNT (BEAKER) (test code = 756) 191 K/CU MM 150-450 MEAN PLATELET VOLUME (BEAKER) (test code = 754) 10.3 fL 9.4-12 .4 NUCLEATED RED BLOOD CELLS (BEAKER) (test code = 413) 0 /100 WBC 0 -0 (CELLAVISION MANUAL DIFF)2018-06-30 15:29:00* Test Item Value Reference Range Interpretation Comments NEUTROPHILS - REL (CELLAVISION)(BEAKER) (test code = 2816) 84 % LYMPHOCYTES - REL (CELLAVISION)(BEAKER) (test code = 2817) 3 % MONOCYTES - REL (CELLAVISION)(BEAKER) (test code = 2818) 4 % EOSINOPHILS - REL (CELLAVISION)(BEAKER) (test code = 2819) 8 % BASOPHILS - REL (CELLAVISION)(BEAKER) (test code = 2820) 1 % NEUTROPHILS - ABS (CELLAVISION)(BEAKER) (test code = 2830) 21.17 K/ul 1.78-5.38 H LYMPHOCYTES - ABS (CELLAVISION)(BEAKER) (test code = 2831) 0.76 K/ul 1.32-3.57 L MONOCYTES - ABS (CELLAVISION)(BEAKER) (test code = 2832) 1.01 K/uL 0.30-0.82 H EOSINOPHILS - ABS (CELLAVISION)(BEAKER) (test code = 2834) 2.02 K/uL 0.04-0.54 H BASOPHILS - ABS (CELLAVISION)(BEAKER) (test code = 2835) 0.25 K/uL 0.01-0.08 H TOTAL COUNTED (BEAKER) (test code = 1351) 100 SMUDGE CELLS (BEAKER) (test code = 1371) Present GIANT PLATELETS (BEAKER) (test code = 313) Present POLYCHROMATOPHILLIC RBCS(BEAKER) (test code = 478) 1+ few HYPOCHROMIA (BEAKER) (test code = 963) 1+ few ANISOCYTOSIS (BEAKER) (test code = 961) 1+ few MACROCYTES (BEAKER) (test code = 964) 1+ few POIKILOCYTES (BEAKER) (test code = 966) 2+ moderate TEAR DROP CELLS (BEAKER) (test code = 481) 1+ few PLATELET CONCENTRATION (CELLAVISION)(BEAKER) (test code = 3438) Cheryl quate Received comment: User comments: Slide comments: POCT-GLUCOSE [id number] 11:51:00* Test Item Value Reference Range Interpretation Comments POC-GLUCOSE METER (BEAKER) (test code = 1538) 191 mg/dL 70-110 H TESTED AT [facility] [address] [facility] [address] HEMOGLOBIN AND [id number] 09:19:00* Test Item Value Reference Range Interpretation Comments HEMOGLOBIN (BEAKER) (test code = 410) 7.8 GM/DL 13.7-17.5 L HEMATOCRIT (BEAKER) (test code = 411) 24.1 % 40.1-51.0 L RAD, CHEST, 1 VIEW, NON [id number] 08:34:00Reason for exam:->Pulmonary edema evaluationShould this be performed at the bedside?->YesFINAL REPORT Chest dated 06/30/2018 COMPARISON: June 29, 2018 Clinical Information: Pulmonary edema evaluation Comment: Heart is enlarged. Pulmonary vasculature is indistinct. Interstitial disease is seen bilaterally suggestive of vascular congestion or pulmonary edema unchanged from prior study. No pleural effusion or pneumothorax is seen. Tracheostomy tube and feeding tube remain in place. Impression: No interval change. Signed: Keith Garcia MDReport Verified Date/Time: 06/30/2018 08:34:20 Reading Location: [address] Consult Reading Room ESIUM 2018-06-30 07:03:00* Test Item Value Reference Range Interpretation Comments MAGNESIUM (BEAKER) (test code = 627) 2.1 mg/dL 1.6-2.6 BASIC METABOLIC [id number] 07:03:00* Test Item Value Reference Range Interpretation Comments SODIUM (BEAKER) (test code = 381) 140 meq/L 136-145 POTASSIUM (BEAKER) (test code = 379) 4.4 meq/L 3.5-5.1 CHLORIDE (BEAKER) (test code = 382) 114 meq/L 98-107 H CO2 (BEAKER) (test code = 355) 18 meq/L 22-29 L BLOOD UREA NITROGEN (BEAKER) (test code = 354) 12 mg/dL 7-21 CREATININE (BEAKER) (test code = 358) 1.31 mg/dL 0.57-1.25 H GLUCOSE RANDOM (BEAKER) (test code = 652) 118 mg/dL 70-105 H CALCIUM (BEAKER) (test code = 697) 8.3 mg/dL 8.4-10.2 L EGFR (BEAKER) (test code = 1092) 61 mL/min/1.73 sq m ESTIMATED GFR IS NOT ACCURATE CREATININE CLEARANCE IN PREDICTING GLOMERULAR FILTRATION RATE. ESTIMATED GFR IS NOT APPLICABLE FOR DIALYSIS PATIENTS. Specimen moderately ictericHEPATIC FUNCTION [id number] 07:03:00* Test Item Value Reference Range Interpretation Comments TOTAL PROTEIN (BEAKER) (test code = 770) 5.3 gm/dL 6.0-8.3 L ALBUMIN (BEAKER) (test code = 1145) 2.9 g/dL 3.5-5.0 L BILIRUBIN TOTAL (BEAKER) (test code = 377) 11.4 mg/dL 0.2-1.2 H BILIRUBIN DIRECT (BEAKER) (test code = 706) 8.0 mg/dL 0.1-0.5 H ALKALINE PHOSPHATASE (BEAKER) (test code = 346) 286 U/L 40-150 H AST (SGOT) (BEAKER) (test code = 353) 242 U/L 5-34 H ALT (SGPT) (BEAKER) (test code = 347) 162 U/L 6-55 H Specimen moderately ictericPOCT-GLUCOSE [id number] 06:08:00* Test Item Value Reference Range Interpretation Comments POC-GLUCOSE METER (BEAKER) (test code = 1538) 127 mg/dL 70-110 H TESTED AT [address] [address] [id number] 06:06:00* Test Item Value Reference Range Interpretation Comments PARTIAL THROMBOPLASTIN TIME (BEAKER) (test code = 760) 27.4 seconds 22.5-36.0 PROTHROMBIN [id number] 06:05:00* Test Item Value Reference Range Interpretation Comments PROTIME (BEAKER) (test code = 759) 16.1 seconds 11.7-14.7 H INR (BEAKER) (test code = 370) 1.4 <=5.9 RECOMMENDED COUMADIN/WARFARIN INR THERAPY RANGESSTANDARD DOSE: 2.0 - 3.0 Inclu herb: PROPHYLAXIS for venous thrombosis, systemic embolization; TREATMENT for giulia ous thrombosis and/or pulmonary embolus.HIGH RISK: Target INR is 2.5-3.5 for pat ients with mechanical heart valves.HEMOGLOBIN AND [id number] 00:04:00 * Test Item Value Reference Range Interpretation Comments HEMOGLOBIN (BEAKER) (test code = 410) 8.3 GM/DL 13.7-17.5 L HEMATOCRIT (BEAKER) (test code = 411) 25.4 % 40.1-51.0 L POCT-GLUCOSE [id number] 00:02:00* Test Item Value Reference Range Interpretation Comments POC-GLUCOSE METER (BEAKER) (test code = 1538) 140 mg/dL 70-110 H TESTED AT [facility] [address] [facility] [address] POCT-GLUCOSE [id number] 17:41:00* Test Item Value Reference Range Interpretation Comments POC-GLUCOSE METER (BEAKER) (test code = 1538) 155 mg/dL 70-110 H TESTED AT [facility] [address] [facility] [address] HEMOGLOBIN AND [id number] 16:00:00* Test Item Value Reference Range Interpretation Comments HEMOGLOBIN (BEAKER) (test code = 410) 8.2 GM/DL 13.7-17.5 L HEMATOCRIT (BEAKER) (test code = 411) 25.5 % 40.1-51.0 L BLOOD GAS, [id number] 15:50:00* Test Item Value Reference Range Interpretation Comments PH ARTERIAL (BEAKER) (test code = 383) 7.42 7.35-7.45 PCO2 ARTERIAL (BEAKER) (test code = 384) 30 mmHg 35-45 L PO2 ARTERIAL (BEAKER) (test code = 385) 114 mmHg 80-90 H O2 SATURATION ARTERIAL (BEAKER) (test code = 386) 98.3 % 96.0 -97.0 H HCO3 ARTERIAL (BEAKER) (test code = 388) 19 mmol/L 21-29 L BASE EXCESS ARTERIAL (BEAKER) (test code = 387) -4.9 mmol/L -2.0-3 .0 L PATIENT TEMPERATURE (BEAKER) (test code = 1818) 37.0 C FIO2 (BEAKER) (test code = 1819) 30.0 % RAD, CHEST, 1 VIEW, NON [id number] 14:58:00Reason for exam:->Pulmonary edema evaluationShould this be performed at the bedside?->YesFINAL REPORT AP chest HISTORY: Pulmonary edema. COMPARISON: 06/28/2018. IMPRESSION: Tracheostomy tube and feeding tube present. Hypoinflation. Mild interstitial edema, increased from previous. No effusion or pneumothorax. Signed: Eric Andrade MDReport Verified Date/Time: 06/29/2018 14:58:10 Reading Location: [address] Reading Room W/PLT COUNT & AUTO DIFFERENTIAL 2018-06-29 14:49:00* Test Item Value Reference Range Interpretation Comments WHITE BLOOD CELL COUNT (BEAKER) (test code = 775) 23.5 K/ L 3.5- 10.5 H RED BLOOD CELL COUNT (BEAKER) (test code = 761) 2.47 M/ L 4.63-6 .08 L HEMOGLOBIN (BEAKER) (test code = 410) 7.9 GM/DL 13.7-17.5 L HEMATOCRIT (BEAKER) (test code = 411) 23.7 % 40.1-51.0 L MEAN CORPUSCULAR VOLUME (BEAKER) (test code = 753) 96.0 fL 79. 0-92.2 H MEAN CORPUSCULAR HEMOGLOBIN (BEAKER) (test code = 751) 32.0 pg 25.7-32.2 MEAN CORPUSCULAR HEMOGLOBIN CONC (BEAKER) (test code = 752) 33.3 GM/DL 32.3-36.5 RED CELL DISTRIBUTION WIDTH (BEAKER) (test code = 412) 20.6 % 11.6-14.4 H PLATELET COUNT (BEAKER) (test code = 756) 184 K/CU MM 150-450 MEAN PLATELET VOLUME (BEAKER) (test code = 754) 10.1 fL 9.4-12 .4 NUCLEATED RED BLOOD CELLS (BEAKER) (test code = 413) 0 /100 WBC 0 -0 (CELLAVISION MANUAL DIFF)2018-06-29 14:49:00* Test Item Value Reference Range Interpretation Comments NEUTROPHILS - REL (CELLAVISION)(BEAKER) (test code = 2816) 77 % LYMPHOCYTES - REL (CELLAVISION)(BEAKER) (test code = 2817) 6 % MONOCYTES - REL (CELLAVISION)(BEAKER) (test code = 2818) 3 % EOSINOPHILS - REL (CELLAVISION)(BEAKER) (test code = 2819) 9 % BANDS - REL (CELLAVISION)(BEAKER) (test code = 2826) 4 % 0 -10 NEUTROPHILS - ABS (CELLAVISION)(BEAKER) (test code = 2830) 18.10 K/ul 1.78-5.38 H LYMPHOCYTES - ABS (CELLAVISION)(BEAKER) (test code = 2831) 1.41 K/ul 1.32-3.57 MONOCYTES - ABS (CELLAVISION)(BEAKER) (test code = 2832) 0.71 K/uL 0.30-0.82 EOSINOPHILS - ABS (CELLAVISION)(BEAKER) (test code = 2834) 2.12 K/uL 0.04-0.54 H BANDS - ABS (CELLAVISION)(BEAKER) (test code = 2840) 0.94 K/uL 0 .00-0.80 H TOTAL COUNTED (BEAKER) (test code = 1351) 100 WBC MORPHOLOGY (BEAKER) (test code = 487) Normal PLT MORPHOLOGY (BEAKER) (test code = 486) Normal ANISOCYTOSIS (BEAKER) (test code = 961) 1+ few TEAR DROP CELLS (BEAKER) (test code = 481) 1+ few ARTIFACT (CELLAVISION)(BEAKER) (test code = 3432) Present Received comment: User comments: Slide comments: POCT-GLUCOSE [id number] 12:20:00* Test Item Value Reference Range Interpretation Comments POC-GLUCOSE METER (BEAKER) (test code = 1538) 154 mg/dL 70-110 H TESTED AT [address] [address] [id number] 06:44:00* Test Item Value Reference Range Interpretation Comments PARTIAL THROMBOPLASTIN TIME (BEAKER) (test code = 760) 40.7 seconds 22.5-36.0 H PROTHROMBIN [id number] 06:43:00* Test Item Value Reference Range Interpretation Comments PROTIME (BEAKER) (test code = 759) 16.8 seconds 11.7-14.7 H INR (BEAKER) (test code = 370) 1.4 <=5.9 RECOMMENDED COUMADIN/WARFARIN INR THERAPY RANGESSTANDARD DOSE: 2.0 - 3.0 Inclu herb: PROPHYLAXIS for venous thrombosis, systemic embolization; TREATMENT for giulia ous thrombosis and/or pulmonary embolus.HIGH RISK: Target INR is 2.5-3.5 for pat ients with mechanical heart valves.POCT-GLUCOSE [id number] 06:07:00* Test Item Value Reference Range Interpretation Comments POC-GLUCOSE METER (BEAKER) (test code = 1538) 177 mg/dL 70-110 H TESTED AT [facility] [address] [facility] [address] [id number] 04:04:00* Test Item Value Reference Range Interpretation Comments MAGNESIUM (BEAKER) (test code = 627) 2.0 mg/dL 1.6-2.6 Specimen slightly hemolyzed BASIC METABOLIC [id number] 04:04:00* Test Item Value Reference Range Interpretation Comments SODIUM (BEAKER) (test code = 381) 138 meq/L 136-145 POTASSIUM (BEAKER) (test code = 379) 4.1 meq/L 3.5-5.1 Specimen slightly hemolyzed CHLORIDE (BEAKER) (test code = 382) 112 meq/L 98-107 H CO2 (BEAKER) (test code = 355) 17 meq/L 22-29 L BLOOD UREA NITROGEN (BEAKER) (test code = 354) 15 mg/dL 7-21 CREATININE (BEAKER) (test code = 358) 1.45 mg/dL 0.57-1.25 H Specimen slightly hemolyzed GLUCOSE RANDOM (BEAKER) (test code = 652) 125 mg/dL 70-105 H CALCIUM (BEAKER) (test code = 697) 8.0 mg/dL 8.4-10.2 L EGFR (BEAKER) (test code = 1092) 54 mL/min/1.73 sq m ESTIMATED GFR IS NOT ACCURATE CREATININE CLEARANCE IN PREDICTING GLOMERULAR FILTRATION RATE. ESTIMATED GFR IS NOT APPLICABLE FOR DIALYSIS PATIENTS. Specimen markedly ictericHEPATIC FUNCTION [id number] 04:04:00* Test Item Value Reference Range Interpretation Comments TOTAL PROTEIN (BEAKER) (test code = 770) 5.3 gm/dL 6.0-8.3 L Specimen slightly hemolyzed ALBUMIN (BEAKER) (test code = 1145) 2.9 g/dL 3.5-5.0 L Specimen slightly hemolyzed BILIRUBIN TOTAL (BEAKER) (test code = 377) 11.1 mg/dL 0.2-1.2 H Specimen slightly hemolyzed BILIRUBIN DIRECT (BEAKER) (test code = 706) 8.4 mg/dL 0.1-0.5 H Specimen slightly hemolyzed ALKALINE PHOSPHATASE (BEAKER) (test code = 346) 260 U/L 40-150 H AST (SGOT) (BEAKER) (test code = 353) 284 U/L 5-34 H Specimen slightly hemolyzed ALT (SGPT) (BEAKER) (test code = 347) 162 U/L 6-55 H Specimen slightly hemolyzed Specimen markedly ictericHEMOGLOBIN AND [id number] 01:37:00* Test Item Value Reference Range Interpretation Comments HEMOGLOBIN (BEAKER) (test code = 410) 7.7 GM/DL 13.7-17.5 L HEMATOCRIT (BEAKER) (test code = 411) 23.9 % 40.1-51.0 L POCT-GLUCOSE [id number] 00:12:00* Test Item Value Reference Range Interpretation Comments POC-GLUCOSE METER (BEAKER) (test code = 1538) 158 mg/dL 70-110 H TESTED AT [facility] [address] [facility] [address] SODIUM, RANDOM [id number] 20:36:00* Test Item Value Reference Range Interpretation Comments SODIUM URINE (BEAKER) (test code = 243) < meq/L Reference Range: No NormalsPOCT-GLUCOSE [id number] 20:24:00* Test Item Value Reference Range Interpretation Comments POC-GLUCOSE METER (BEAKER) (test code = 1538) 169 mg/dL 70-110 H TESTED AT [address] [address] HEMOGLOBIN AND [id number] 20:24:00* Test Item Value Reference Range Interpretation Comments HEMOGLOBIN (BEAKER) (test code = 410) 6.9 GM/DL 13.7-17.5 L HEMATOCRIT (BEAKER) (test code = 411) 21.1 % 40.1-51.0 L HEMOGLOBIN AND [id number] 18:35:00* Test Item Value Reference Range Interpretation Comments HEMOGLOBIN (BEAKER) (test code = 410) 6.7 GM/DL 13.7-17.5 L HEMATOCRIT (BEAKER) (test code = 411) 20.7 % 40.1-51.0 L YARI ANTIGEN WITH REFLEX TO [id number] 18:29:00* Test Item Value Reference Range Interpretation Comments YARI ANTIGEN (BEAKER) (test code = 1782) Positive YARI ANTIGEN [id number] 18:29:00* Test Item Value Reference Range Interpretation Comments YARI ANTIGEN TITER (BEAKER) (test code = 737) :2 POCT-GLUCOSE [id number] 17:43:00* Test Item Value Reference Range Interpretation Comments POC-GLUCOSE METER (BEAKER) (test code = 1538) 108 mg/dL 70-110 TESTED AT [facility] [address] [facility] [address] POCT-GLUCOSE [id number] 12:27:00* Test Item Value Reference Range Interpretation Comments POC-GLUCOSE METER (BEAKER) (test code = 1538) 152 mg/dL 70-110 H TESTED AT [facility] [address] [facility] [address] CBC W/PLT COUNT & AUTO [id number] 12:16:00* Test Item Value Reference Range Interpretation Comments WHITE BLOOD CELL COUNT (BEAKER) (test code = 775) 29.0 K/ L 3.5- 10.5 H RED BLOOD CELL COUNT (BEAKER) (test code = 761) 2.28 M/ L 4.63-6 .08 L HEMOGLOBIN (BEAKER) (test code = 410) 7.0 GM/DL 13.7-17.5 L HEMATOCRIT (BEAKER) (test code = 411) 21.7 % 40.1-51.0 L MEAN CORPUSCULAR VOLUME (BEAKER) (test code = 753) 95.2 fL 79. 0-92.2 H MEAN CORPUSCULAR HEMOGLOBIN (BEAKER) (test code = 751) 30.7 pg 25.7-32.2 MEAN CORPUSCULAR HEMOGLOBIN CONC (BEAKER) (test code = 752) 32.3 GM/DL 32.3-36.5 RED CELL DISTRIBUTION WIDTH (BEAKER) (test code = 412) 21.3 % 11.6-14.4 H PLATELET COUNT (BEAKER) (test code = 756) 197 K/CU MM 150-450 MEAN PLATELET VOLUME (BEAKER) (test code = 754) 10.0 fL 9.4-12 .4 NUCLEATED RED BLOOD CELLS (BEAKER) (test code = 413) 0 /100 WBC 0 -0 (CELLAVISION MANUAL DIFF)2018-06-28 12:16:00* Test Item Value Reference Range Interpretation Comments NEUTROPHILS - REL (CELLAVISION)(BEAKER) (test code = 2816) 78 % LYMPHOCYTES - REL (CELLAVISION)(BEAKER) (test code = 2817) 5 % MONOCYTES - REL (CELLAVISION)(BEAKER) (test code = 2818) 4 % EOSINOPHILS - REL (CELLAVISION)(BEAKER) (test code = 2819) 12 % BASOPHILS - REL (CELLAVISION)(BEAKER) (test code = 2820) 1 % NEUTROPHILS - ABS (CELLAVISION)(BEAKER) (test code = 2830) 22.62 K/ul 1.78-5.38 H LYMPHOCYTES - ABS (CELLAVISION)(BEAKER) (test code = 2831) 1.45 K/ul 1.32-3.57 MONOCYTES - ABS (CELLAVISION)(BEAKER) (test code = 2832) 1.16 K/uL 0.30-0.82 H EOSINOPHILS - ABS (CELLAVISION)(BEAKER) (test code = 2834) 3.48 K/uL 0.04-0.54 H BASOPHILS - ABS (CELLAVISION)(BEAKER) (test code = 2835) 0.29 K/uL 0.01-0.08 H TOTAL COUNTED (BEAKER) (test code = 1351) 100 WBC MORPHOLOGY (BEAKER) (test code = 487) Normal LARGE PLT(BEAKER) (test code = 2156) Present POLYCHROMATOPHILLIC RBCS(BEAKER) (test code = 478) 1+ few HYPOCHROMIA (BEAKER) (test code = 963) 1+ few ARTIFACT (CELLAVISION)(BEAKER) (test code = 3432) Present PLATELET CONCENTRATION (CELLAVISION)(BEAKER) (test code = 3438) Cheryl quate Received comment: User comments: Slide comments: HEMOGLOBIN AND HEMATOCRIT 2018-06-28 09:29:00* Test Item Value Reference Range Interpretation Comments HEMOGLOBIN (BEAKER) (test code = 410) 7.7 GM/DL 13.7-17.5 L HEMATOCRIT (BEAKER) (test code = 411) 23.4 % 40.1-51.0 L RAD, CHEST, 1 VIEW, NON [id number] 09:28:00Reason for exam:->Pulmonary edema evaluationShould this be performed at the bedside?->YesFINAL REPORT Portable chest. CLINICAL HISTORY: Pulmonary edema evaluation. COMPARISON STUDY: Chest x-ray from yesterday. FINDINGS: The cardiac silhouette is enlarged. The pulmonary parenchyma demonstrates increased interstitial and minimal patchy airspace opacities. The support lines and tubes are unchanged. No pneumothorax is seen. The regional skeleton is unremarkable. IMPRESSION: No significant change. Signed: Andrew Sloan MDReport Verified Date/Time: 06/28/2018 09:28:59 Reading Location: [facility] Radiology Reading Room - GLUCOSE [id number] 06:13:00* Test Item Value Reference Range Interpretation Comments POC-GLUCOSE METER (BEAKER) (test code = 1538) 123 mg/dL 70-110 H TESTED AT [facility] [address] [facility] [address] BASIC METABOLIC [id number] 05:57:00* Test Item Value Reference Range Interpretation Comments SODIUM (BEAKER) (test code = 381) 138 meq/L 136-145 POTASSIUM (BEAKER) (test code = 379) 3.9 meq/L 3.5-5.1 CHLORIDE (BEAKER) (test code = 382) 112 meq/L 98-107 H CO2 (BEAKER) (test code = 355) 21 meq/L 22-29 L BLOOD UREA NITROGEN (BEAKER) (test code = 354) 18 mg/dL 7-21 CREATININE (BEAKER) (test code = 358) 1.61 mg/dL 0.57-1.25 H GLUCOSE RANDOM (BEAKER) (test code = 652) 92 mg/dL 70-105 CALCIUM (BEAKER) (test code = 697) 7.7 mg/dL 8.4-10.2 L EGFR (BEAKER) (test code = 1092) 48 mL/min/1.73 sq m ESTIMATED GFR IS NOT ACCURATE CREATININE CLEARANCE IN PREDICTING GLOMERULAR FILTRATION RATE. ESTIMATED GFR IS NOT APPLICABLE FOR DIALYSIS PATIENTS. Specimen markedly [id number] 05:56:00* Test Item Value Reference Range Interpretation Comments MAGNESIUM (BEAKER) (test code = 627) 2.3 mg/dL 1.6-2.6 HEPATIC FUNCTION [id number] 05:56:00* Test Item Value Reference Range Interpretation Comments TOTAL PROTEIN (BEAKER) (test code = 770) 4.7 gm/dL 6.0-8.3 L ALBUMIN (BEAKER) (test code = 1145) 2.5 g/dL 3.5-5.0 L BILIRUBIN TOTAL (BEAKER) (test code = 377) 11.7 mg/dL 0.2-1.2 H BILIRUBIN DIRECT (BEAKER) (test code = 706) 9.5 mg/dL 0.1-0.5 H ALKALINE PHOSPHATASE (BEAKER) (test code = 346) 220 U/L 40-150 H AST (SGOT) (BEAKER) (test code = 353) 332 U/L 5-34 H ALT (SGPT) (BEAKER) (test code = 347) 180 U/L 6-55 H Specimen markedly [id number] 05:43:00* Test Item Value Reference Range Interpretation Comments PARTIAL THROMBOPLASTIN TIME (BEAKER) (test code = 760) 45.3 seconds 22.5-36.0 H PROTHROMBIN [id number] 05:42:00* Test Item Value Reference Range Interpretation Comments PROTIME (BEAKER) (test code = 759) 17.5 seconds 11.7-14.7 H INR (BEAKER) (test code = 370) 1.5 <=5.9 RECOMMENDED COUMADIN/WARFARIN INR THERAPY RANGESSTANDARD DOSE: 2.0 - 3.0 Inclu herb: PROPHYLAXIS for venous thrombosis, systemic embolization; TREATMENT for giulia ous thrombosis and/or pulmonary embolus.HIGH RISK: Target INR is 2.5-3.5 for pat ients with mechanical heart valves.POCT-GLUCOSE [id number] 00:23:00* Test Item Value Reference Range Interpretation Comments POC-GLUCOSE METER (BEAKER) (test code = 1538) 183 mg/dL 70-110 H TESTED AT [facility] [address] [facility] [address] HEMOGLOBIN AND [id number] 20:24:00* Test Item Value Reference Range Interpretation Comments HEMOGLOBIN (BEAKER) (test code = 410) 7.4 GM/DL 13.7-17.5 L HEMATOCRIT (BEAKER) (test code = 411) 22.3 % 40.1-51.0 L POCT-GLUCOSE [id number] 18:08:00* Test Item Value Reference Range Interpretation Comments POC-GLUCOSE METER ([facility]) (test code = 1538) 171 mg/dL 70-110 H TESTED AT [facility] [address] [facility] [address] TISSUE [id number] 17:16:00Surgical Pathology Report Case: [id number] Authorizing Provider: Seven Tubbs MD Collected: 06/19/2018 1536 Ordering Location: [address] Received: 06/20/2018 0750 Pathologist: Jb Brock MD Specimen: Cecum, Cecal Ulcer Bx COLON, CECUM, ULCER, BIOPSY: - ATYPICAL LYMPHOID PROLIFERATION 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 The lymphoid infiltrate demonstrates increased, large atypical appearing B lymphocytes. Preserved mucosal surface or crypts are not identified to comment on ischemic features/chronicity. Immunostain for CMV is negative. Special stain for GMS and AFB are negative for fungal and acid-fast micro-organisms respectively. Gram stain does not show significantly increased bacterial forms. Recommend further tissue evaluation with re-biopsy and flow cytometry if clinically indicated. Th is case was also reviewed by Dr. Samm Arenas, [facility] Hematopathology, who concurs with the diagnosis. [id number] Cecal ulcer biops yThe specimen is received in a formalin-filled container and labeled with the p atient's information and labeled "cecal ulcer biopsy" and consists of a 0.2 cm f ragment of guajardo tissue, submitted entirely A1. CG/pl Performed.The following carlos tional immunohistochemical stains, were evaluated on the biopsy with appropriate controls:CD3, CD5, CD10, CD20, BCL-2, BCL-6, CyclinD1, Ki-67, Deforest, Lambda, PA X-5.CD3, CD5 and BCL-2 have similar patterns and highlight T lymphocytes. CD20 a nd PAX-5 highlights increased large, atypical appearing B cells. Deforest and Santana da demonstrate polytypic plasma cells. CD10 and cyclin D1 are negative in the ly mphoid cells. BCL-6 highlights few scattered large cells. Ki-67 demonstrates an increased proliferation index in the large B lymphocytes. CMV and special stain s for bacterial and fungal organisms (Gram stain, GMS, and AFP) were negative.Th e interpretation of this case included the use of immunohistochemistry or specia l stains.Special stains: GMS, AFB, GRAM STAIN. CD3, CD20, PAX-5, CD5, CD10, JANETH A, LAMBDA, CYCLIN D1, CMV, BCL-2, BCL-6, KI-67.Immunohistochemistry technical te sting was performed at [facility], Pathology Laboratory wh ere it was developed and its performance characteristics were determined. It has not been cleared or approved by the U.S. Food and Drug Administration. The FDA has determined that such clearance or approval is not necessary. The test is use d for clinical purposes. It should not be regarded as investigational or for res earch. This laboratory is certified under the Clinical Laboratory Improvement Am endments of 1988 (CLIA-88) as qualified to perform high complexity clinical labo ratory testing.The immunohistochemistry test was developed and its performance c haracteristics determined by [facility], Pathology Laboratory. It has not been cleared or approved by the U.S. Food and Drug Administration. T he FDA has determined that such clearance or approval is not necessary. The test is used for clinical purposes. It should not be regarded as investigational or for research. This laboratory is certified under the Clinical Laboratory Improve ment Amendments of 1988 (CLIA-88) as qualified to perform high complexity clinic al laboratory testing.[facility], Department of Pathology, [address] [place] [address], [place] [address], [facility], [facility] of [facility], [address] [place] [address], [facility], [facility], [address] [place] [address], b-TYPE NATRIURETIC FACTOR (BNP) 2018-06-27 13:44:00* Test Item Value Reference Range Interpretation Comments B-TYPE NATRIURETIC PEPTIDE (BEAKER) (test code = 700) 179 pg/mL 0-100 H HEMOGLOBIN AND [id number] 13:18:00* Test Item Value Reference Range Interpretation Comments HEMOGLOBIN (BEAKER) (test code = 410) 7.9 GM/DL 13.7-17.5 L HEMATOCRIT (BEAKER) (test code = 411) 23.6 % 40.1-51.0 L CBC W/PLT COUNT & AUTO [id number] 13:10:00* Test Item Value Reference Range Interpretation Comments WHITE BLOOD CELL COUNT (BEAKER) (test code = 775) 27.8 K/ L 3.5- 10.5 H RED BLOOD CELL COUNT (BEAKER) (test code = 761) 2.46 M/ L 4.63-6 .08 L HEMOGLOBIN (BEAKER) (test code = 410) 7.6 GM/DL 13.7-17.5 L HEMATOCRIT (BEAKER) (test code = 411) 23.0 % 40.1-51.0 L MEAN CORPUSCULAR VOLUME (BEAKER) (test code = 753) 93.5 fL 79. 0-92.2 H MEAN CORPUSCULAR HEMOGLOBIN (BEAKER) (test code = 751) 30.9 pg 25.7-32.2 MEAN CORPUSCULAR HEMOGLOBIN CONC (BEAKER) (test code = 752) 33.0 GM/DL 32.3-36.5 RED CELL DISTRIBUTION WIDTH (BEAKER) (test code = 412) 21.3 % 11.6-14.4 H PLATELET COUNT (BEAKER) (test code = 756) 203 K/CU MM 150-450 MEAN PLATELET VOLUME (BEAKER) (test code = 754) 9.9 fL 9.4-12 .4 NUCLEATED RED BLOOD CELLS (BEAKER) (test code = 413) 0 /100 WBC 0 -0 (CELLAVISION MANUAL DIFF)2018-06-27 13:10:00* Test Item Value Reference Range Interpretation Comments NEUTROPHILS - REL (CELLAVISION)(BEAKER) (test code = 2816) 78 % LYMPHOCYTES - REL (CELLAVISION)(BEAKER) (test code = 2817) 1 % MONOCYTES - REL (CELLAVISION)(BEAKER) (test code = 2818) 5 % EOSINOPHILS - REL (CELLAVISION)(BEAKER) (test code = 2819) 13 % MYELOCYTES - REL (CELLAVISION)(BEAKER) (test code = 2822) 1 % 0-0 H PROMYELOCYTES - REL (CELLAVSION)(BEAKER) (test code = 2825) 1 % 0-0 H NEUTROPHILS - ABS (CELLAVISION)(BEAKER) (test code = 2830) 21.68 K/ul 1.78-5.38 H LYMPHOCYTES - ABS (CELLAVISION)(BEAKER) (test code = 2831) 0.28 K/ul 1.32-3.57 L MONOCYTES - ABS (CELLAVISION)(BEAKER) (test code = 2832) 1.39 K/uL 0.30-0.82 H EOSINOPHILS - ABS (CELLAVISION)(BEAKER) (test code = 2834) 3.61 K/uL 0.04-0.54 H MYELOCYTES-ABS (CELLAVISION)(BEAKER) (test code = 2837) 0.28 K/uL 0.00-0.00 H PROMYELOCYTES - ABS (CELLAVISION)(BEAKER) (test code = 2838) 0.28 K/uL 0.00-0.00 H TOTAL COUNTED (BEAKER) (test code = 1351) 100 WBC MORPHOLOGY (BEAKER) (test code = 487) Normal GIANT PLATELETS (BEAKER) (test code = 313) Present POLYCHROMATOPHILLIC RBCS(BEAKER) (test code = 478) 1+ few ANISOCYTOSIS (BEAKER) (test code = 961) 1+ few MACROCYTES (BEAKER) (test code = 964) 1+ few ARTIFACT (CELLAVISION)(BEAKER) (test code = 3432) Present PLATELET CONCENTRATION (CELLAVISION)(BEAKER) (test code = 3438) Cheryl quate Received comment: User comments: Slide comments: RAD, CHEST, 1 VIEW, NON DEPT 2018-06-27 12:39:00Reason for exam:->Pulmonary edema evaluationShould this be performed at the bedside?->YesFINAL REPORT Comparison: 06/26/2018. TECHNIQUE: Single view of the chest. FINDINGS: Nonspecific prominent interstitial markings bilaterally are again seen. No gross new lung parenchymal changes. Support lines and tubes are stable. IMPRESSION: No significant interval change. Signed: Roberth Camp MDReport Verified Date/Time: 06/27/2018 12:39:10 Reading Location: [facility] Radiology Reading Room -GLUCOSE [id number] 11:38:00 * Test Item Value Reference Range Interpretation Comments POC-GLUCOSE METER (BEAKER) (test code = 1538) 181 mg/dL 70-110 H TESTED AT [address] [address] HEMOGLOBIN AND [id number] 09:34:00* Test Item Value Reference Range Interpretation Comments HEMOGLOBIN (BEAKER) (test code = 410) 8.1 GM/DL 13.7-17.5 L HEMATOCRIT (BEAKER) (test code = 411) 24.9 % 40.1-51.0 L POCT-GLUCOSE [id number] 06:28:00* Test Item Value Reference Range Interpretation Comments POC-GLUCOSE METER (BEAKER) (test code = 1538) 161 mg/dL 70-110 H TESTED AT [address] [address] BASIC METABOLIC [id number] 06:04:00* Test Item Value Reference Range Interpretation Comments SODIUM (BEAKER) (test code = 381) 143 meq/L 136-145 POTASSIUM (BEAKER) (test code = 379) 3.7 meq/L 3.5-5.1 CHLORIDE (BEAKER) (test code = 382) 116 meq/L 98-107 H CO2 (BEAKER) (test code = 355) 20 meq/L 22-29 L BLOOD UREA NITROGEN (BEAKER) (test code = 354) 19 mg/dL 7-21 CREATININE (BEAKER) (test code = 358) 1.41 mg/dL 0.57-1.25 H GLUCOSE RANDOM (BEAKER) (test code = 652) 131 mg/dL 70-105 H CALCIUM (BEAKER) (test code = 697) 7.8 mg/dL 8.4-10.2 L EGFR (BEAKER) (test code = 1092) 56 mL/min/1.73 sq m ESTIMATED GFR IS NOT ACCURATE CREATININE CLEARANCE IN PREDICTING GLOMERULAR FILTRATION RATE. ESTIMATED GFR IS NOT APPLICABLE FOR DIALYSIS PATIENTS. Specimen markedly [id number] 06:00:00* Test Item Value Reference Range Interpretation Comments MAGNESIUM (BEAKER) (test code = 627) 1.9 mg/dL 1.6-2.6 HEPATIC FUNCTION [id number] 06:00:00* Test Item Value Reference Range Interpretation Comments TOTAL PROTEIN (BEAKER) (test code = 770) 4.6 gm/dL 6.0-8.3 L ALBUMIN (BEAKER) (test code = 1145) 2.5 g/dL 3.5-5.0 L BILIRUBIN TOTAL (BEAKER) (test code = 377) 11.6 mg/dL 0.2-1.2 H BILIRUBIN DIRECT (BEAKER) (test code = 706) 9.4 mg/dL 0.1-0.5 H ALKALINE PHOSPHATASE (BEAKER) (test code = 346) 192 U/L 40-150 H AST (SGOT) (BEAKER) (test code = 353) 303 U/L 5-34 H ALT (SGPT) (BEAKER) (test code = 347) 170 U/L 6-55 H Specimen markedly [id number] 05:56:00* Test Item Value Reference Range Interpretation Comments PARTIAL THROMBOPLASTIN TIME (BEAKER) (test code = 760) 41.4 seconds 22.5-36.0 H PROTHROMBIN [id number] 05:55:00* Test Item Value Reference Range Interpretation Comments PROTIME (BEAKER) (test code = 759) 17.8 seconds 11.7-14.7 H INR (BEAKER) (test code = 370) 1.5 <=5.9 RECOMMENDED COUMADIN/WARFARIN INR THERAPY RANGESSTANDARD DOSE: 2.0 - 3.0 Inclu herb: PROPHYLAXIS for venous thrombosis, systemic embolization; TREATMENT for giulia ous thrombosis and/or pulmonary embolus.HIGH RISK: Target INR is 2.5-3.5 for pat ients with mechanical heart valves.HEMOGLOBIN AND [id number] 05:33:00 * Test Item Value Reference Range Interpretation Comments HEMOGLOBIN (BEAKER) (test code = 410) 7.5 GM/DL 13.7-17.5 L HEMATOCRIT (BEAKER) (test code = 411) 23.3 % 40.1-51.0 L POCT-GLUCOSE [id number] 00:28:00* Test Item Value Reference Range Interpretation Comments POC-GLUCOSE METER (BEAKER) (test code = 1538) 153 mg/dL 70-110 H TESTED AT [address] [address] HEMOGLOBIN AND [id number] 00:15:00* Test Item Value Reference Range Interpretation Comments HEMOGLOBIN (BEAKER) (test code = 410) 6.8 GM/DL 13.7-17.5 L HEMATOCRIT (BEAKER) (test code = 411) 20.6 % 40.1-51.0 L HEMOGLOBIN AND [id number] 20:31:00* Test Item Value Reference Range Interpretation Comments HEMOGLOBIN (BEAKER) (test code = 410) 7.4 GM/DL 13.7-17.5 L HEMATOCRIT (BEAKER) (test code = 411) 22.5 % 40.1-51.0 L HEMOGLOBIN AND [id number] 18:54:00* Test Item Value Reference Range Interpretation Comments HEMOGLOBIN (BEAKER) (test code = 410) 7.4 GM/DL 13.7-17.5 L HEMATOCRIT (BEAKER) (test code = 411) 22.7 % 40.1-51.0 L POCT-GLUCOSE [id number] 18:17:00* Test Item Value Reference Range Interpretation Comments POC-GLUCOSE METER (BEAKER) (test code = 1538) 133 mg/dL 70-110 H TESTED AT [facility] [address] [facility] [address] [id number] 16:32:00* Test Item Value Reference Range Interpretation Comments FIBRINOGEN LEVEL (BEAKER) (test code = 658) 331 mg/dl 225-434 PT/[id number] 15:10:00* Test Item Value Reference Range Interpretation Comments PROTIME (BEAKER) (test code = 759) 18.1 seconds 11.7-14.7 H INR (BEAKER) (test code = 370) 1.6 <=5.9 PARTIAL THROMBOPLASTIN TIME (BEAKER) (test code = 760) 43.4 seconds 22.5-36.0 H RECOMMENDED COUMADIN/WARFARIN INR THERAPY RANGESSTANDARD DOSE: 2.0 - 3.0 Inclu herb: PROPHYLAXIS for venous thrombosis, systemic embolization; TREATMENT for giulia ous thrombosis and/or pulmonary embolus.HIGH RISK: Target INR is 2.5-3.5 for pat ients with mechanical heart valves.HEMOGLOBIN AND [id number] 14:55:00 * Test Item Value Reference Range Interpretation Comments HEMOGLOBIN (BEAKER) (test code = 410) 7.7 GM/DL 13.7-17.5 L HEMATOCRIT (BEAKER) (test code = 411) 24.0 % 40.1-51.0 L CBC W/PLT COUNT & AUTO [id number] 14:09:00* Test Item Value Reference Range Interpretation Comments WHITE BLOOD CELL COUNT (BEAKER) (test code = 775) 27.9 K/ L 3.5- 10.5 H RED BLOOD CELL COUNT (BEAKER) (test code = 761) 2.07 M/ L 4.63-6 .08 L HEMOGLOBIN (BEAKER) (test code = 410) 6.8 GM/DL 13.7-17.5 L HEMATOCRIT (BEAKER) (test code = 411) 20.6 % 40.1-51.0 L MEAN CORPUSCULAR VOLUME (BEAKER) (test code = 753) 99.5 fL 79. 0-92.2 H MEAN CORPUSCULAR HEMOGLOBIN (BEAKER) (test code = 751) 32.9 pg 25.7-32.2 H MEAN CORPUSCULAR HEMOGLOBIN CONC (BEAKER) (test code = 752) 33.0 GM/DL 32.3-36.5 RED CELL DISTRIBUTION WIDTH (BEAKER) (test code = 412) 22.1 % 11.6-14.4 H PLATELET COUNT (BEAKER) (test code = 756) 269 K/CU MM 150-450 MEAN PLATELET VOLUME (BEAKER) (test code = 754) 10.0 fL 9.4-12 .4 NUCLEATED RED BLOOD CELLS (BEAKER) (test code = 413) 0 /100 WBC 0 -0 (CELLAVISION MANUAL DIFF)2018-06-26 14:09:00* Test Item Value Reference Range Interpretation Comments NEUTROPHILS - REL (CELLAVISION)(BEAKER) (test code = 2816) 80 % LYMPHOCYTES - REL (CELLAVISION)(BEAKER) (test code = 2817) 3 % MONOCYTES - REL (CELLAVISION)(BEAKER) (test code = 2818) 5 % EOSINOPHILS - REL (CELLAVISION)(BEAKER) (test code = 2819) 12 % NEUTROPHILS - ABS (CELLAVISION)(BEAKER) (test code = 2830) 22.32 K/ul 1.78-5.38 H LYMPHOCYTES - ABS (CELLAVISION)(BEAKER) (test code = 2831) 0.84 K/ul 1.32-3.57 L MONOCYTES - ABS (CELLAVISION)(BEAKER) (test code = 2832) 1.40 K/uL 0.30-0.82 H EOSINOPHILS - ABS (CELLAVISION)(BEAKER) (test code = 2834) 3.35 K/uL 0.04-0.54 H TOTAL COUNTED (BEAKER) (test code = 1351) 100 WBC MORPHOLOGY (BEAKER) (test code = 487) Normal LARGE PLT(BEAKER) (test code = 2156) Present POLYCHROMATOPHILLIC RBCS(BEAKER) (test code = 478) 2+ moderate HYPOCHROMIA (BEAKER) (test code = 963) 1+ few ARTIFACT (CELLAVISION)(BEAKER) (test code = 3432) Present PLATELET CONCENTRATION (CELLAVISION)(BEAKER) (test code = 3438) Cheryl quate Received comment: User comments: Slide comments: BLOOD [id number] 14:03:00* Test Item Value Reference Range Interpretation Comments CULTURE (BEAKER) (test code = 1095) No growth in 5 days BLOOD [id number] 14:03:00* Test Item Value Reference Range Interpretation Comments CULTURE (BEAKER) (test code = 1095) No growth in 5 days POCT-GLUCOSE [id number] 11:51:00* Test Item Value Reference Range Interpretation Comments POC-GLUCOSE METER (BEAKER) (test code = 1538) 176 mg/dL 70-110 H TESTED AT [facility] [address] [facility] [address] HEMOGLOBIN AND [id number] 08:23:00* Test Item Value Reference Range Interpretation Comments HEMOGLOBIN (BEAKER) (test code = 410) 6.2 GM/DL 13.7-17.5 L HEMATOCRIT (BEAKER) (test code = 411) 18.9 % 40.1-51.0 L POCT-GLUCOSE [id number] 07:35:00* Test Item Value Reference Range Interpretation Comments POC-GLUCOSE METER (BEAKER) (test code = 1538) 172 mg/dL 70-110 H TESTED AT [facility] [address] [facility] [address] RAD, CHEST, 1 VIEW, NON [id number] 07:26:00Reason for exam:->Pulmonary edema evaluationShould this be performed at the bedside?->YesFINAL REPORT Portable chest 06/26/2018 COMPARISON: 06/25/2018 There is been no change. Feeding tube terminates below diaphragm. Right jugular catheter again terminates in the superior vena cava. There are mild persistent interstitial changes in the lungs that may represent edema or ARDS. Tracheostomy tube is again noted. The heart remains upper limits of normal. No significant osseous abnormalities are identified. Signed: Rafal Madrigal [facility] Verified Date/Time: 06/26/2018 07:26:15 Reading Location: [facility] Radiology Reading Room [id number] 05:04:00* Test Item Value Reference Range Interpretation Comments MAGNESIUM (BEAKER) (test code = 627) 1.9 mg/dL 1.6-2.6 BASIC METABOLIC [id number] 05:04:00* Test Item Value Reference Range Interpretation Comments SODIUM (BEAKER) (test code = 381) 146 meq/L 136-145 H POTASSIUM (BEAKER) (test code = 379) 3.8 meq/L 3.5-5.1 CHLORIDE (BEAKER) (test code = 382) 117 meq/L 98-107 H CO2 (BEAKER) (test code = 355) 21 meq/L 22-29 L BLOOD UREA NITROGEN (BEAKER) (test code = 354) 17 mg/dL 7-21 CREATININE (BEAKER) (test code = 358) 1.10 mg/dL 0.57-1.25 GLUCOSE RANDOM (BEAKER) (test code = 652) 134 mg/dL 70-105 H CALCIUM (BEAKER) (test code = 697) 8.1 mg/dL 8.4-10.2 L EGFR (BEAKER) (test code = 1092) 75 mL/min/1.73 sq m ESTIMATED GFR IS NOT ACCURATE CREATININE CLEARANCE IN PREDICTING GLOMERULAR FILTRATION RATE. ESTIMATED GFR IS NOT APPLICABLE FOR DIALYSIS PATIENTS. Specimen markedly ictericHEPATIC FUNCTION [id number] 05:04:00* Test Item Value Reference Range Interpretation Comments TOTAL PROTEIN (BEAKER) (test code = 770) 4.9 gm/dL 6.0-8.3 L ALBUMIN (BEAKER) (test code = 1145) 2.6 g/dL 3.5-5.0 L BILIRUBIN TOTAL (BEAKER) (test code = 377) 13.9 mg/dL 0.2-1.2 H BILIRUBIN DIRECT (BEAKER) (test code = 706) 10.3 mg/dL 0.1-0.5 H ALKALINE PHOSPHATASE (BEAKER) (test code = 346) 182 U/L 40-150 H AST (SGOT) (BEAKER) (test code = 353) 351 U/L 5-34 H ALT (SGPT) (BEAKER) (test code = 347) 202 U/L 6-55 H Specimen markedly [id number] 04:54:00* Test Item Value Reference Range Interpretation Comments PARTIAL THROMBOPLASTIN TIME (BEAKER) (test code = 760) 39.3 seconds 22.5-36.0 H PROTHROMBIN [id number] 04:53:00* Test Item Value Reference Range Interpretation Comments PROTIME (BEAKER) (test code = 759) 18.3 seconds 11.7-14.7 H INR (BEAKER) (test code = 370) 1.6 <=5.9 RECOMMENDED COUMADIN/WARFARIN INR THERAPY RANGESSTANDARD DOSE: 2.0 - 3.0 Inclu herb: PROPHYLAXIS for venous thrombosis, systemic embolization; TREATMENT for giulia ous thrombosis and/or pulmonary embolus.HIGH RISK: Target INR is 2.5-3.5 for pat ients with mechanical heart valves.HEMOGLOBIN AND [id number] 04:48:00 * Test Item Value Reference Range Interpretation Comments HEMOGLOBIN (BEAKER) (test code = 410) 7.2 GM/DL 13.7-17.5 L HEMATOCRIT (BEAKER) (test code = 411) 22.4 % 40.1-51.0 L HEMOGLOBIN AND [id number] 00:55:00* Test Item Value Reference Range Interpretation Comments HEMOGLOBIN (BEAKER) (test code = 410) 7.9 GM/DL 13.7-17.5 L HEMATOCRIT (BEAKER) (test code = 411) 24.4 % 40.1-51.0 L POCT-GLUCOSE [id number] 00:11:00* Test Item Value Reference Range Interpretation Comments POC-GLUCOSE METER (BEAKER) (test code = 1538) 130 mg/dL 70-110 H TESTED AT [facility] [address] [facility] [address] HEMOGLOBIN AND [id number] 21:55:00* Test Item Value Reference Range Interpretation Comments HEMOGLOBIN (BEAKER) (test code = 410) 7.8 GM/DL 13.7-17.5 L HEMATOCRIT (BEAKER) (test code = 411) 24.7 % 40.1-51.0 L HEMOGLOBIN AND [id number] 19:15:00* Test Item Value Reference Range Interpretation Comments HEMOGLOBIN (BEAKER) (test code = 410) 8.2 GM/DL 13.7-17.5 L HEMATOCRIT (BEAKER) (test code = 411) 25.5 % 40.1-51.0 L POCT-GLUCOSE [id number] 18:49:00* Test Item Value Reference Range Interpretation Comments POC-GLUCOSE METER (BEAKER) (test code = 1538) 159 mg/dL 70-110 H TESTED AT [facility] [address] [facility] [address] POCT-GLUCOSE [id number] 17:29:00* Test Item Value Reference Range Interpretation Comments POC-GLUCOSE METER (BEAKER) (test code = 1538) 104 mg/dL 70-110 TESTED AT [facility] [address] [facility] [address] CT, CTA [id number] 14:14:00FINAL REPORT TECHNIQUE: CTA of the abdomen and pelvis WITHOUT and WITH intravenous contrast and WITHOUT oral contrast. Dose modulation, iterative reconstruction, and/or weight-based adjustment of the mA/kV was utilized to reduce the radiation dose to as low as reasonably achievable. INDICATION: 37-year-old man with gastrointestinal bleeding. COMPARISON: Chest, abdomen, and pelvis CT 06/14/2018. FINDINGS: LOWER THORAX: Persistent groundglass opacities in both lung bases. Decreased consolidative opacities in both lung bases. HEPATOBILIARY: Decreased attenuation of the liver, consistent with hepatic steatosis. No focal hepatic lesions. Gallbladder is unremarkable. No biliary ductal dilatation.SPLEEN: The spleen is enlarged, measuring 14.5 cm in greatest dimension.PANCREAS: No focal masses or ductal dilatation. ADRENALS: 1 cm right adrenal nodule with precontrast density of approximately 30 Hounsfield units. Unremarkable left adrenal gland.KIDNEYS/URETERS: No hydronephrosis, stones, or solid mass lesions.PELVIC ORGANS/BLADDER: The bladder is decompressed, limiting its evaluation. Trace foci of air in the bladder. Prostate and seminal vesicles are grossly unremarkable. PERITONEUM/RETROPERITONEUM: Small amount of free fluid in the pelvis, nons pecific. No free air.LYMPH NODES: Prominent periportal lymph nodes measure up to 1.3 cm and are likely reactive.VESSELS: Abdominal aorta is normal in caliber an d contour. Severe narrowing at the origin of the celiac artery. Other branch ves sels are widely patent. GI TRACT: The tip of a feeding tube terminates in the pr oximal duodenum. No definite evidence of acute gastrointestinal bleeding. No dis tention or wall thickening. BONES AND SOFT TISSUES: Unremarkable. IMPRESSION:No definite evidence of acute gastrointestinal bleeding. 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 Tr fortino air in the bladder, likely from prior catheterization. Cystitis cannot be ex cluded in the correct clinical setting. Hepatic steatosis with splenomegaly. Rig ht adrenal nodule, probable adenoma. Follow-up abdomen CT with and without intra venous contrast (adrenal protocol) is recommended in 12 months for reassessment. Signed: Buster Allen MDReport Verified Date/Time: 06/25/2018 14:14:40 Readsorin manjarrez Location: [address] Body Reading Room GLOBIN AND [id number] 12:47:00* Test Item Value Reference Range Interpretation Comments HEMOGLOBIN (BEAKER) (test code = 410) 7.9 GM/DL 13.7-17.5 L HEMATOCRIT (BEAKER) (test code = 411) 24.6 % 40.1-51.0 L POCT-GLUCOSE [id number] 12:19:00* Test Item Value Reference Range Interpretation Comments POC-GLUCOSE METER (BEAKER) (test code = 1538) 161 mg/dL 70-110 H TESTED AT [facility] [address] [facility] [address] CBC W/PLT COUNT & AUTO [id number] 10:47:00* Test Item Value Reference Range Interpretation Comments WHITE BLOOD CELL COUNT (BEAKER) (test code = 775) 24.5 K/ L 3.5- 10.5 H RED BLOOD CELL COUNT (BEAKER) (test code = 761) 2.62 M/ L 4.63-6 .08 L HEMOGLOBIN (BEAKER) (test code = 410) 8.2 GM/DL 13.7-17.5 L HEMATOCRIT (BEAKER) (test code = 411) 25.4 % 40.1-51.0 L MEAN CORPUSCULAR VOLUME (BEAKER) (test code = 753) 96.9 fL 79. 0-92.2 H MEAN CORPUSCULAR HEMOGLOBIN (BEAKER) (test code = 751) 31.3 pg 25.7-32.2 MEAN CORPUSCULAR HEMOGLOBIN CONC (BEAKER) (test code = 752) 32.3 GM/DL 32.3-36.5 RED CELL DISTRIBUTION WIDTH (BEAKER) (test code = 412) 22.3 % 11.6-14.4 H PLATELET COUNT (BEAKER) (test code = 756) 252 K/CU MM 150-450 MEAN PLATELET VOLUME (BEAKER) (test code = 754) 10.2 fL 9.4-12 .4 NUCLEATED RED BLOOD CELLS (BEAKER) (test code = 413) 0 /100 WBC 0 -0 (CELLAVISION MANUAL DIFF)2018-06-25 10:47:00* Test Item Value Reference Range Interpretation Comments NEUTROPHILS - REL (CELLAVISION)(BEAKER) (test code = 2816) 74 % LYMPHOCYTES - REL (CELLAVISION)(BEAKER) (test code = 2817) 2 % MONOCYTES - REL (CELLAVISION)(BEAKER) (test code = 2818) 6 % EOSINOPHILS - REL (CELLAVISION)(BEAKER) (test code = 2819) 18 % NEUTROPHILS - ABS (CELLAVISION)(BEAKER) (test code = 2830) 18.13 K/ul 1.78-5.38 H LYMPHOCYTES - ABS (CELLAVISION)(BEAKER) (test code = 2831) 0.49 K/ul 1.32-3.57 L MONOCYTES - ABS (CELLAVISION)(BEAKER) (test code = 2832) 1.47 K/uL 0.30-0.82 H EOSINOPHILS - ABS (CELLAVISION)(BEAKER) (test code = 2834) 4.41 K/uL 0.04-0.54 H TOTAL COUNTED (BEAKER) (test code = 1351) 100 WBC MORPHOLOGY (BEAKER) (test code = 487) Normal PLT MORPHOLOGY (BEAKER) (test code = 486) Normal POLYCHROMATOPHILLIC RBCS(BEAKER) (test code = 478) 1+ few ANISOCYTOSIS (BEAKER) (test code = 961) 1+ few POIKILOCYTES (BEAKER) (test code = 966) 1+ few SCHISTOCYTES (BEAKER) (test code = 765) 1+ few OVALOCYTES (BEAKER) (test code = 477) 1+ few TEAR DROP CELLS (BEAKER) (test code = 481) 1+ few ELIZONDO-JOLLY BODIES (BEAKER) (test code = 475) 1+ few BASOPHILIC STIPPLING (BEAKER) (test code = 473) Present ARTIFACT (CELLAVISION)(BEAKER) (test code = 3432) Present PLATELET CONCENTRATION (CELLAVISION)(BEAKER) (test code = 3438) Cheryl quate Received comment: User comments: Slide comments: HEMOGLOBIN AND HEMATOCRIT 2018-06-25 09:55:00* Test Item Value Reference Range Interpretation Comments HEMOGLOBIN (BEAKER) (test code = 410) 7.8 GM/DL 13.7-17.5 L HEMATOCRIT (BEAKER) (test code = 411) 24.6 % 40.1-51.0 L RAD, CHEST, 1 VIEW, NON [id number] 07:29:00Reason for exam:->Pulmonary edema evaluationShould this be performed at the bedside?->YesFINAL REPORT Portable chest. CLINICAL HISTORY: Pulmonary edema evaluation. COMPARISON STUDY: Chest x-ray from yesterday. FINDINGS: The cardiac silhouette is enlarged. The pulmonary parenchyma demonstrates increased interstitial and patchy airspace opacities. The support lines and tubes are unchanged. No pneumothorax is seen. Degenerative changes are noted. IMPRESSION: No significant change. Signed: Andrew Sloan MDReport Verified Date/Time: 06/25/2018 07:29:59 Reading Location: [facility] Radiology Reading Room [facility] signed by: ANDREW SLOAN M.D. on 06/25/2018 07:29 AM POCT-GLUCOSE METER 2018-06-25 06:28:00* Test Item Value Reference Range Interpretation Comments POC-GLUCOSE METER (BEAKER) (test code = 1538) 174 mg/dL 70-110 H TESTED AT [address] [address] [id number] 05:46:00* Test Item Value Reference Range Interpretation Comments PARTIAL THROMBOPLASTIN TIME (BEAKER) (test code = 760) 52.2 seconds 22.5-36.0 H PROTHROMBIN [id number] 05:44:00* Test Item Value Reference Range Interpretation Comments PROTIME (BEAKER) (test code = 759) 18.3 seconds 11.7-14.7 H INR (BEAKER) (test code = 370) 1.6 <=5.9 RECOMMENDED COUMADIN/WARFARIN INR THERAPY RANGESSTANDARD DOSE: 2.0 - 3.0 Inclu herb: PROPHYLAXIS for venous thrombosis, systemic embolization; TREATMENT for giulia ous thrombosis and/or pulmonary embolus.HIGH RISK: Target INR is 2.5-3.5 for pat ients with mechanical heart valves.[id number] 05:41:00* Test Item Value Reference Range Interpretation Comments MAGNESIUM (BEAKER) (test code = 627) 2.2 mg/dL 1.6-2.6 BASIC METABOLIC [id number] 05:41:00* Test Item Value Reference Range Interpretation Comments SODIUM (BEAKER) (test code = 381) 146 meq/L 136-145 H POTASSIUM (BEAKER) (test code = 379) 3.9 meq/L 3.5-5.1 CHLORIDE (BEAKER) (test code = 382) 118 meq/L 98-107 H CO2 (BEAKER) (test code = 355) 20 meq/L 22-29 L BLOOD UREA NITROGEN (BEAKER) (test code = 354) 26 mg/dL 7-21 H CREATININE (BEAKER) (test code = 358) 1.34 mg/dL 0.57-1.25 H GLUCOSE RANDOM (BEAKER) (test code = 652) 166 mg/dL 70-105 H CALCIUM (BEAKER) (test code = 697) 8.4 mg/dL 8.4-10.2 EGFR (BEAKER) (test code = 1092) 59 mL/min/1.73 sq m ESTIMATED GFR IS NOT ACCURATE CREATININE CLEARANCE IN PREDICTING GLOMERULAR FILTRATION RATE. ESTIMATED GFR IS NOT APPLICABLE FOR DIALYSIS PATIENTS. Specimen markedly ictericHEPATIC FUNCTION [id number] 05:41:00* Test Item Value Reference Range Interpretation Comments TOTAL PROTEIN (BEAKER) (test code = 770) 5.3 gm/dL 6.0-8.3 L ALBUMIN (BEAKER) (test code = 1145) 2.7 g/dL 3.5-5.0 L BILIRUBIN TOTAL (BEAKER) (test code = 377) 14.6 mg/dL 0.2-1.2 H BILIRUBIN DIRECT (BEAKER) (test code = 706) 11.5 mg/dL 0.1-0.5 H ALKALINE PHOSPHATASE (BEAKER) (test code = 346) 168 U/L 40-150 H AST (SGOT) (BEAKER) (test code = 353) 373 U/L 5-34 H ALT (SGPT) (BEAKER) (test code = 347) 194 U/L 6-55 H Specimen markedly ictericCREATINE KINASE (CK)2018-06-25 05:41:00* Test Item Value Reference Range Interpretation Comments CREATINE KINASE TOTAL (BEAKER) (test code = 380) 24 U/L 29-20 0 L BLOOD GAS, [id number] 05:35:00* Test Item Value Reference Range Interpretation Comments PH ARTERIAL (BEAKER) (test code = 383) 7.45 7.35-7.45 PCO2 ARTERIAL (BEAKER) (test code = 384) 28 mmHg 35-45 L PO2 ARTERIAL (BEAKER) (test code = 385) 204 mmHg 80-90 H O2 SATURATION ARTERIAL (BEAKER) (test code = 386) 99.5 % 96.0 -97.0 H HCO3 ARTERIAL (BEAKER) (test code = 388) 19 mmol/L 21-29 L BASE EXCESS ARTERIAL (BEAKER) (test code = 387) -4.5 mmol/L -2.0-3 .0 L PATIENT TEMPERATURE (BEAKER) (test code = 1818) 37.0 C FIO2 (BEAKER) (test code = 1819) 40.0 % LACTIC ACID, [id number] 05:32:00* Test Item Value Reference Range Interpretation Comments LACTATE BLOOD ARTERIAL (2) (BEAKER) (test code = 2874) 0.5 mmol/L 0.5-2.2 Specimen markedly ictericPOCT-GLUCOSE [id number] 00:35:00* Test Item Value Reference Range Interpretation Comments POC-GLUCOSE METER (BEAKER) (test code = 1538) 140 mg/dL 70-110 H TESTED AT [address] [address] HEMOGLOBIN AND [id number] 00:32:00* Test Item Value Reference Range Interpretation Comments HEMOGLOBIN (BEAKER) (test code = 410) 8.3 GM/DL 13.7-17.5 L HEMATOCRIT (BEAKER) (test code = 411) 25.6 % 40.1-51.0 L POCT-GLUCOSE [id number] 18:59:00* Test Item Value Reference Range Interpretation Comments POC-GLUCOSE METER (BEAKER) (test code = 1538) 124 mg/dL 70-110 H TESTED AT [address] [address] HEMOGLOBIN AND [id number] 18:36:00* Test Item Value Reference Range Interpretation Comments HEMOGLOBIN (BEAKER) (test code = 410) 8.1 GM/DL 13.7-17.5 L HEMATOCRIT (BEAKER) (test code = 411) 25.1 % 40.1-51.0 L POCT-GLUCOSE [id number] 12:21:00* Test Item Value Reference Range Interpretation Comments POC-GLUCOSE METER (BEAKER) (test code = 1538) 133 mg/dL 70-110 H TESTED AT [facility] [address] [facility] [address] RAD, CHEST, 1 VIEW, NON [id number] 09:38:00Reason for exam:->Pulmonary edema evaluationShould this be performed at the bedside?->YesFINAL REPORT Comparison: 06/23/2018 TECHNIQUE: Single view of the chest FINDINGS: Lung volumes are low. There is mild vascular congestion. No gross new lung parenchymal changes. Support lines and tubes are stable. Signed: Roberth Camp MDReport Verified Date/Time: 06/24/2018 09:38:51 Reading Location: [facility] Radiology Reading Room W/PLT COUNT & AUTO [id number] 09:00:00* Test Item Value Reference Range Interpretation Comments WHITE BLOOD CELL COUNT (BEAKER) (test code = 775) 22.3 K/ L 3.5- 10.5 H RED BLOOD CELL COUNT (BEAKER) (test code = 761) 2.64 M/ L 4.63-6 .08 L HEMOGLOBIN (BEAKER) (test code = 410) 8.1 GM/DL 13.7-17.5 L HEMATOCRIT (BEAKER) (test code = 411) 25.0 % 40.1-51.0 L MEAN CORPUSCULAR VOLUME (BEAKER) (test code = 753) 94.7 fL 79. 0-92.2 H MEAN CORPUSCULAR HEMOGLOBIN (BEAKER) (test code = 751) 30.7 pg 25.7-32.2 MEAN CORPUSCULAR HEMOGLOBIN CONC (BEAKER) (test code = 752) 32.4 GM/DL 32.3-36.5 RED CELL DISTRIBUTION WIDTH (BEAKER) (test code = 412) 21.6 % 11.6-14.4 H PLATELET COUNT (BEAKER) (test code = 756) 235 K/CU MM 150-450 MEAN PLATELET VOLUME (BEAKER) (test code = 754) 10.1 fL 9.4-12 .4 NUCLEATED RED BLOOD CELLS (BEAKER) (test code = 413) 0 /100 WBC 0 -0 (CELLAVISION MANUAL DIFF)2018-06-24 09:00:00* Test Item Value Reference Range Interpretation Comments NEUTROPHILS - REL (CELLAVISION)(BEAKER) (test code = 2816) 72 % LYMPHOCYTES - REL (CELLAVISION)(BEAKER) (test code = 2817) 4 % MONOCYTES - REL (CELLAVISION)(BEAKER) (test code = 2818) 5 % EOSINOPHILS - REL (CELLAVISION)(BEAKER) (test code = 2819) 16 % BASOPHILS - REL (CELLAVISION)(BEAKER) (test code = 2820) 1 % ATYPICAL LYMPHOCYTES - REL (CELLAVISION)(BEAKER) (test code = 2829) 2 % 0-0 H NEUTROPHILS - ABS (CELLAVISION)(BEAKER) (test code = 2830) 16.06 K/ul 1.78-5.38 H LYMPHOCYTES - ABS (CELLAVISION)(BEAKER) (test code = 2831) 0.89 K/ul 1.32-3.57 L MONOCYTES - ABS (CELLAVISION)(BEAKER) (test code = 2832) 1.12 K/uL 0.30-0.82 H EOSINOPHILS - ABS (CELLAVISION)(BEAKER) (test code = 2834) 3.57 K/uL 0.04-0.54 H BASOPHILS - ABS (CELLAVISION)(BEAKER) (test code = 2835) 0.22 K/uL 0.01-0.08 H ATYPICAL LYMPHOCYTES - ABS (CELLAVISION)(BEAKER) (test code = 2858) 0.45 K/uL 0.00-0.00 H TOTAL COUNTED (BEAKER) (test code = 1351) 100 PLT MORPHOLOGY (BEAKER) (test code = 486) Normal SMUDGE CELLS (BEAKER) (test code = 1371) Present POLYCHROMATOPHILLIC RBCS(BEAKER) (test code = 478) 1+ few ANISOCYTOSIS (BEAKER) (test code = 961) 1+ few PLATELET CONCENTRATION (CELLAVISION)(BEAKER) (test code = 3438) Cheryl quate Received comment: User comments: Slide comments: POCT-GLUCOSE [id number] 06:48:00* Test Item Value Reference Range Interpretation Comments POC-GLUCOSE METER (BEAKER) (test code = 1538) 122 mg/dL 70-110 H TESTED AT [facility] [address] [facility] [address] POCT-GLUCOSE [id number] 05:09:00* Test Item Value Reference Range Interpretation Comments POC-GLUCOSE METER (BEAKER) (test code = 1538) 138 mg/dL 70-110 H TESTED AT [facility] [address] [facility] [address] BLOOD GAS, [id number] 04:42:00* Test Item Value Reference Range Interpretation Comments PH ARTERIAL (BEAKER) (test code = 383) 7.45 7.35-7.45 PCO2 ARTERIAL (BEAKER) (test code = 384) 27 mmHg 35-45 L PO2 ARTERIAL (BEAKER) (test code = 385) 186 mmHg 80-90 H O2 SATURATION ARTERIAL (BEAKER) (test code = 386) 99.4 % 96.0 -97.0 H HCO3 ARTERIAL (BEAKER) (test code = 388) 19 mmol/L 21-29 L BASE EXCESS ARTERIAL (BEAKER) (test code = 387) -4.5 mmol/L -2.0-3 .0 L PATIENT TEMPERATURE (BEAKER) (test code = 1818) 37.0 C FIO2 (BEAKER) (test code = 1819) 40.0 % [id number] 04:32:00* Test Item Value Reference Range Interpretation Comments MAGNESIUM (BEAKER) (test code = 627) 2.0 mg/dL 1.6-2.6 BASIC METABOLIC [id number] 04:32:00* Test Item Value Reference Range Interpretation Comments SODIUM (BEAKER) (test code = 381) 148 meq/L 136-145 H POTASSIUM (BEAKER) (test code = 379) 4.0 meq/L 3.5-5.1 CHLORIDE (BEAKER) (test code = 382) 119 meq/L 98-107 H CO2 (BEAKER) (test code = 355) 20 meq/L 22-29 L BLOOD UREA NITROGEN (BEAKER) (test code = 354) 33 mg/dL 7-21 H CREATININE (BEAKER) (test code = 358) 1.42 mg/dL 0.57-1.25 H GLUCOSE RANDOM (BEAKER) (test code = 652) 115 mg/dL 70-105 H CALCIUM (BEAKER) (test code = 697) 8.8 mg/dL 8.4-10.2 EGFR (BEAKER) (test code = 1092) 56 mL/min/1.73 sq m ESTIMATED GFR IS NOT ACCURATE CREATININE CLEARANCE IN PREDICTING GLOMERULAR FILTRATION RATE. ESTIMATED GFR IS NOT APPLICABLE FOR DIALYSIS PATIENTS. Specimen markedly ictericHEPATIC FUNCTION [id number] 04:32:00* Test Item Value Reference Range Interpretation Comments TOTAL PROTEIN (BEAKER) (test code = 770) 5.1 gm/dL 6.0-8.3 L ALBUMIN (BEAKER) (test code = 1145) 2.7 g/dL 3.5-5.0 L BILIRUBIN TOTAL (BEAKER) (test code = 377) 14.5 mg/dL 0.2-1.2 H BILIRUBIN DIRECT (BEAKER) (test code = 706) 10.8 mg/dL 0.1-0.5 H ALKALINE PHOSPHATASE (BEAKER) (test code = 346) 117 U/L 40-150 AST (SGOT) (BEAKER) (test code = 353) 382 U/L 5-34 H ALT (SGPT) (BEAKER) (test code = 347) 191 U/L 6-55 H Specimen markedly ictericLACTIC ACID, [id number] 04:22:00* Test Item Value Reference Range Interpretation Comments LACTATE BLOOD ARTERIAL (2) (BEAKER) (test code = 2874) 0.6 mmol/L 0.5-2.2 Specimen moderately [id number] 04:17:00* Test Item Value Reference Range Interpretation Comments PARTIAL THROMBOPLASTIN TIME (BEAKER) (test code = 760) 50.9 seconds 22.5-36.0 H PROTHROMBIN [id number] 04:16:00* Test Item Value Reference Range Interpretation Comments PROTIME (BEAKER) (test code = 759) 18.0 seconds 11.7-14.7 H INR (BEAKER) (test code = 370) 1.6 <=5.9 RECOMMENDED COUMADIN/WARFARIN INR THERAPY RANGESSTANDARD DOSE: 2.0 - 3.0 Inclu herb: PROPHYLAXIS for venous thrombosis, systemic embolization; TREATMENT for giulia ous thrombosis and/or pulmonary embolus.HIGH RISK: Target INR is 2.5-3.5 for pat ients with mechanical heart valves.POCT-GLUCOSE [id number] 00:29:00* Test Item Value Reference Range Interpretation Comments POC-GLUCOSE METER (BEAKER) (test code = 1538) 113 mg/dL 70-110 H TESTED AT [facility] [address] [facility] [address] POCT-GLUCOSE [id number] 18:51:00* Test Item Value Reference Range Interpretation Comments POC-GLUCOSE METER (BEAKER) (test code = 1538) 108 mg/dL 70-110 TESTED AT [address] [address] (CELLAVISION MANUAL DIFF)2018-06-23 16:53:00* Test Item Value Reference Range Interpretation Comments NEUTROPHILS - REL (CELLAVISION)(BEAKER) (test code = 2816) 77 % LYMPHOCYTES - REL (CELLAVISION)(BEAKER) (test code = 2817) 4 % MONOCYTES - REL (CELLAVISION)(BEAKER) (test code = 2818) 4 % EOSINOPHILS - REL (CELLAVISION)(BEAKER) (test code = 2819) 10 % BASOPHILS - REL (CELLAVISION)(BEAKER) (test code = 2820) 1 % METAMYELOCYTES - REL (CELLAVISION)(BEAKER) (test code = 2821) 1 % 0-0 H BANDS - REL (CELLAVISION)(BEAKER) (test code = 2826) 3 % 0 -10 NEUTROPHILS - ABS (CELLAVISION)(BEAKER) (test code = 2830) 17.40 K/ul 1.78-5.38 H LYMPHOCYTES - ABS (CELLAVISION)(BEAKER) (test code = 2831) 0.90 K/ul 1.32-3.57 L MONOCYTES - ABS (CELLAVISION)(BEAKER) (test code = 2832) 0.90 K/uL 0.30-0.82 H EOSINOPHILS - ABS (CELLAVISION)(BEAKER) (test code = 2834) 2.26 K/uL 0.04-0.54 H BASOPHILS - ABS (CELLAVISION)(BEAKER) (test code = 2835) 0.23 K/uL 0.01-0.08 H METAMYELOCYTES - ABS (CELLAVISION)(BEAKER) (test code = 2836 ) 0.23 K/uL 0.00-0.00 H BANDS - ABS (CELLAVISION)(BEAKER) (test code = 2840) 0.68 K/uL 0 .00-0.80 TOTAL COUNTED (BEAKER) (test code = 1351) 100 WBC MORPHOLOGY (BEAKER) (test code = 487) Normal PLT MORPHOLOGY (BEAKER) (test code = 486) Normal ANISOCYTOSIS (BEAKER) (test code = 961) 1+ few POIKILOCYTES (BEAKER) (test code = 966) 1+ few ROULEAUX (BEAKER) (test code = 763) 1+ few TEAR DROP CELLS (BEAKER) (test code = 481) 1+ few ARTIFACT (CELLAVISION)(BEAKER) (test code = 3432) Present PLATELET CONCENTRATION (CELLAVISION)(BEAKER) (test code = 3438) Cheryl quate Received comment: User comments: Slide comments: CBC W/PLT COUNT & AUTO [id number] 16:33:00* Test Item Value Reference Range Interpretation Comments WHITE BLOOD CELL COUNT (BEAKER) (test code = 775) 22.6 K/ L 3.5- 10.5 H RED BLOOD CELL COUNT (BEAKER) (test code = 761) 2.55 M/ L 4.63-6 .08 L HEMOGLOBIN (BEAKER) (test code = 410) 7.9 GM/DL 13.7-17.5 L HEMATOCRIT (BEAKER) (test code = 411) 24.2 % 40.1-51.0 L MEAN CORPUSCULAR VOLUME (BEAKER) (test code = 753) 94.9 fL 79. 0-92.2 H MEAN CORPUSCULAR HEMOGLOBIN (BEAKER) (test code = 751) 31.0 pg 25.7-32.2 MEAN CORPUSCULAR HEMOGLOBIN CONC (BEAKER) (test code = 752) 32.6 GM/DL 32.3-36.5 RED CELL DISTRIBUTION WIDTH (BEAKER) (test code = 412) 21.5 % 11.6-14.4 H PLATELET COUNT (BEAKER) (test code = 756) 214 K/CU MM 150-450 MEAN PLATELET VOLUME (BEAKER) (test code = 754) 10.3 fL 9.4-12 .4 NUCLEATED RED BLOOD CELLS (BEAKER) (test code = 413) 0 /100 WBC 0 -0 NEUTROPHILS RELATIVE PERCENT (BEAKER) (test code = 429) 67 % LYMPHOCYTES RELATIVE PERCENT (BEAKER) (test code = 430) 7 % MONOCYTES RELATIVE PERCENT (BEAKER) (test code = 431) 6 % EOSINOPHILS RELATIVE PERCENT (BEAKER) (test code = 432) 17 % BASOPHILS RELATIVE PERCENT (BEAKER) (test code = 437) 0 % NEUTROPHILS ABSOLUTE COUNT (BEAKER) (test code = 670) 15.05 K/ L 1.78-5.38 H LYMPHOCYTES ABSOLUTE COUNT (BEAKER) (test code = 414) 1.66 K/ L 1.32-3.57 MONOCYTES ABSOLUTE COUNT (BEAKER) (test code = 415) 1.32 K/ L 0. 30-0.82 H EOSINOPHILS ABSOLUTE COUNT (BEAKER) (test code = 416) 3.86 K/ L 0.04-0.54 H BASOPHILS ABSOLUTE COUNT (BEAKER) (test code = 417) 0.07 K/ L 0. 01-0.08 IMMATURE GRANULOCYTES-RELATIVE PERCENT (BEAKER) (test code = 2801) 3 % 0-1 H CBC W/PLT COUNT & AUTO [id number] 13:52:00* Test Item Value Reference Range Interpretation Comments WHITE BLOOD CELL COUNT (BEAKER) (test code = 775) 22.2 K/ L 3.5- 10.5 H RED BLOOD CELL COUNT (BEAKER) (test code = 761) 2.67 M/ L 4.63-6 .08 L HEMOGLOBIN (BEAKER) (test code = 410) 8.2 GM/DL 13.7-17.5 L HEMATOCRIT (BEAKER) (test code = 411) 25.0 % 40.1-51.0 L MEAN CORPUSCULAR VOLUME (BEAKER) (test code = 753) 93.6 fL 79. 0-92.2 H MEAN CORPUSCULAR HEMOGLOBIN (BEAKER) (test code = 751) 30.7 pg 25.7-32.2 MEAN CORPUSCULAR HEMOGLOBIN CONC (BEAKER) (test code = 752) 32.8 GM/DL 32.3-36.5 RED CELL DISTRIBUTION WIDTH (BEAKER) (test code = 412) 21.4 % 11.6-14.4 H PLATELET COUNT (BEAKER) (test code = 756) 214 K/CU MM 150-450 MEAN PLATELET VOLUME (BEAKER) (test code = 754) 10.5 fL 9.4-12 .4 NUCLEATED RED BLOOD CELLS (BEAKER) (test code = 413) 0 /100 WBC 0 -0 (CELLAVISION MANUAL DIFF)2018-06-23 13:52:00* Test Item Value Reference Range Interpretation Comments NEUTROPHILS - REL (CELLAVISION)(BEAKER) (test code = 2816) 76 % LYMPHOCYTES - REL (CELLAVISION)(BEAKER) (test code = 2817) 2 % MONOCYTES - REL (CELLAVISION)(BEAKER) (test code = 2818) 4 % EOSINOPHILS - REL (CELLAVISION)(BEAKER) (test code = 2819) 15 % PROMYELOCYTES - REL (CELLAVSION)(BEAKER) (test code = 2825) 1 % 0-0 H BANDS - REL (CELLAVISION)(BEAKER) (test code = 2826) 2 % 0 -10 NEUTROPHILS - ABS (CELLAVISION)(BEAKER) (test code = 2830) 16.87 K/ul 1.78-5.38 H LYMPHOCYTES - ABS (CELLAVISION)(BEAKER) (test code = 2831) 0.44 K/ul 1.32-3.57 L MONOCYTES - ABS (CELLAVISION)(BEAKER) (test code = 2832) 0.89 K/uL 0.30-0.82 H EOSINOPHILS - ABS (CELLAVISION)(BEAKER) (test code = 2834) 3.33 K/uL 0.04-0.54 H PROMYELOCYTES - ABS (CELLAVISION)(BEAKER) (test code = 2838) 0.22 K/uL 0.00-0.00 H BANDS - ABS (CELLAVISION)(BEAKER) (test code = 2840) 0.44 K/uL 0 .00-0.80 TOTAL COUNTED (BEAKER) (test code = 1351) 100 PLT MORPHOLOGY (BEAKER) (test code = 486) Normal SMUDGE CELLS (BEAKER) (test code = 1371) Present POLYCHROMATOPHILLIC RBCS(BEAKER) (test code = 478) 2+ moderate ANISOCYTOSIS (BEAKER) (test code = 961) 1+ few MACROCYTES (BEAKER) (test code = 964) 1+ few POIKILOCYTES (BEAKER) (test code = 966) 1+ few TEAR DROP CELLS (BEAKER) (test code = 481) 1+ few ALL CELLS (BEAKER) (test code = 474) 1+ few PLATELET CONCENTRATION (CELLAVISION)(BEAKER) (test code = 3438) Cheryl quate Received comment: User comments: Slide comments: POCT-GLUCOSE [id number] 11:56:00* Test Item Value Reference Range Interpretation Comments POC-GLUCOSE METER (BEAKER) (test code = 1538) 115 mg/dL 70-110 H TESTED AT [facility] [address] [facility] [address] [id number] 07:07:00* Test Item Value Reference Range Interpretation Comments MAGNESIUM (BEAKER) (test code = 627) 1.9 mg/dL 1.6-2.6 BASIC METABOLIC [id number] 07:07:00* Test Item Value Reference Range Interpretation Comments SODIUM (BEAKER) (test code = 381) 145 meq/L 136-145 POTASSIUM (BEAKER) (test code = 379) 3.8 meq/L 3.5-5.1 CHLORIDE (BEAKER) (test code = 382) 117 meq/L 98-107 H CO2 (BEAKER) (test code = 355) 20 meq/L 22-29 L BLOOD UREA NITROGEN (BEAKER) (test code = 354) 45 mg/dL 7-21 H CREATININE (BEAKER) (test code = 358) 1.65 mg/dL 0.57-1.25 H GLUCOSE RANDOM (BEAKER) (test code = 652) 121 mg/dL 70-105 H CALCIUM (BEAKER) (test code = 697) 8.6 mg/dL 8.4-10.2 EGFR (BEAKER) (test code = 1092) 47 mL/min/1.73 sq m ESTIMATED GFR IS NOT ACCURATE CREATININE CLEARANCE IN PREDICTING GLOMERULAR FILTRATION RATE. ESTIMATED GFR IS NOT APPLICABLE FOR DIALYSIS PATIENTS. Specimen markedly ictericHEPATIC FUNCTION [id number] 07:07:00* Test Item Value Reference Range Interpretation Comments TOTAL PROTEIN (BEAKER) (test code = 770) 5.0 gm/dL 6.0-8.3 L ALBUMIN (BEAKER) (test code = 1145) 2.7 g/dL 3.5-5.0 L BILIRUBIN TOTAL (BEAKER) (test code = 377) 15.1 mg/dL 0.2-1.2 H BILIRUBIN DIRECT (BEAKER) (test code = 706) 11.1 mg/dL 0.1-0.5 H ALKALINE PHOSPHATASE (BEAKER) (test code = 346) 106 U/L 40-150 AST (SGOT) (BEAKER) (test code = 353) 369 U/L 5-34 H ALT (SGPT) (BEAKER) (test code = 347) 179 U/L 6-55 H Specimen markedly ictericHEMOGLOBIN AND [id number] 06:51:00* Test Item Value Reference Range Interpretation Comments HEMOGLOBIN (BEAKER) (test code = 410) 8.2 GM/DL 13.7-17.5 L HEMATOCRIT (BEAKER) (test code = 411) 25.0 % 40.1-51.0 L POCT-GLUCOSE [id number] 06:44:00* Test Item Value Reference Range Interpretation Comments POC-GLUCOSE METER (BEAKER) (test code = 1538) 121 mg/dL 70-110 H TESTED AT [facility] [address] [facility] [address] LACTIC ACID, [id number] 06:44:00* Test Item Value Reference Range Interpretation Comments LACTATE BLOOD ARTERIAL (2) (BEAKER) (test code = 2874) 0.7 mmol/L 0.5-2.2 Specimen markedly [id number] 06:40:00* Test Item Value Reference Range Interpretation Comments PARTIAL THROMBOPLASTIN TIME (BEAKER) (test code = 760) 44.7 seconds 22.5-36.0 H PROTHROMBIN [id number] 06:39:00* Test Item Value Reference Range Interpretation Comments PROTIME (BEAKER) (test code = 759) 18.0 seconds 11.7-14.7 H INR (BEAKER) (test code = 370) 1.6 <=5.9 RECOMMENDED COUMADIN/WARFARIN INR THERAPY RANGESSTANDARD DOSE: 2.0 - 3.0 Inclu herb: PROPHYLAXIS for venous thrombosis, systemic embolization; TREATMENT for giulia ous thrombosis and/or pulmonary embolus.HIGH RISK: Target INR is 2.5-3.5 for pat ients with mechanical heart valves.BLOOD GAS, [id number] 06:36:00* Test Item Value Reference Range Interpretation Comments PH ARTERIAL (BEAKER) (test code = 383) 7.47 7.35-7.45 H PCO2 ARTERIAL (BEAKER) (test code = 384) 28 mmHg 35-45 L PO2 ARTERIAL (BEAKER) (test code = 385) 115 mmHg 80-90 H O2 SATURATION ARTERIAL (BEAKER) (test code = 386) 98.5 % 96.0 -97.0 H HCO3 ARTERIAL (BEAKER) (test code = 388) 20 mmol/L 21-29 L BASE EXCESS ARTERIAL (BEAKER) (test code = 387) -3.5 mmol/L -2.0-3 .0 L PATIENT TEMPERATURE (BEAKER) (test code = 1818) 37.0 C FIO2 (BEAKER) (test code = 1819) 40.0 % RAD, CHEST, 1 VIEW, NON [id number] 04:52:00Reason for exam:->Pulmonary edema evaluationShould this be performed at the bedside?->YesFINAL REPORT RAD, CHEST, 1 VIEW, NON DEPT INDICATION: Pulmonary edema evaluation COMPARISON: Prior day's exam FINDINGS: Portable frontal view of the chest. IMPRESSION: Support Lines: Unchanged without evidence of malpositioning Lungs and pleura: Interstitial opacities and atelectasis within the right midlung are unchanged. No pneumothorax.Heart and mediastinum: Stable contours. Stable surgical changes.Additional findings: None. Signed: Adri Avendaño MDReport Verified Date/Time: 06/23/2018 04:52:15 Reading Location: [address] Neuro Reading Room U/S, ABDOMINAL, [id number] 03:15:00Abdomen limited area? Add comment if clarification is needed.->Right upper quadrantReason for exam:->r/o cholecystitis, r/o ascitesShould this be performed at the bedside?-> YesFINAL REPORT INDICATION: r/o cholecystitis, r/o ascites COMPARISON: None TECHNIQUE: Real-time transabdominal oquendo scale and color Doppler ultrasound of the abdominal right upper quadrant. FINDINGS:Liver: Size: 21.1cm. Echogenicity: Increased. Masses/lesions: None. Surface Nodularity: None. Intrahepatic bile ducts: Normal. Common bile duct: 0.5cm. MPV: 0.9cm. Gallbladder: Stones: Sludge is noted at the gallbladder neck. Mobility is not discerned as patient could not be localized due to support devices Sludge: Tiny subcentimeter nonshadowing calculi. Wall thickness: 0.2 cm. The gallbladder is nondistended. Pericholecystic fluid: None. Sonographic Cooper's sign: Absent. Pancreas: Not well-seen due to bowel gas Right kidney: Size: 10.6 x 5.5 x 4.5 cm. Renal cortical thickness is 1.3 cm Parenchyma: Normal echogenicity. No cysts. No stones. Hydronephrosis: None. Ascites: Questionable trace ascites within the right upper quadrant (versus small amount of pleural fluid). Regional Vasculature: The visible abdominal aorta, IVC and hepatic veins are patent. Additional Findings: None. IMPRESSION: No convincing sonographic evidence of cholecystitis. Sludge is noted within the gallbladder, with mobility not assessed due to limitations imposed by patient's support devices. Tiny nonshadowing cholelithiasis. No wall thickening, common bile duct dilatation or pericholecystic fluid. Tiny amount of fluid adjacent to the liver. It is unclear if this represents trace perihepatic ascites, or, possibly, trace pleural fluid. Hepatic steatosis Signed: Adri Avendaño MDReport Verified Date/Time: 06/23/2018 03:15:49 Reading Location: [facility] C013V Neuro Reading Room GLOBIN AND [id number] 01:05:00* Test Item Value Reference Range Interpretation Comments HEMOGLOBIN (BEAKER) (test code = 410) 8.4 GM/DL 13.7-17.5 L HEMATOCRIT (BEAKER) (test code = 411) 25.9 % 40.1-51.0 L POCT-GLUCOSE [id number] 00:43:00* Test Item Value Reference Range Interpretation Comments POC-GLUCOSE METER (BEAKER) (test code = 1538) 180 mg/dL 70-110 H TESTED AT [facility] [address] [facility] [address] HEMOGLOBIN AND [id number] 21:03:00* Test Item Value Reference Range Interpretation Comments HEMOGLOBIN (BEAKER) (test code = 410) 8.6 GM/DL 13.7-17.5 L HEMATOCRIT (BEAKER) (test code = 411) 25.8 % 40.1-51.0 L POCT-GLUCOSE [id number] 18:20:00* Test Item Value Reference Range Interpretation Comments POC-GLUCOSE METER (BEAKER) (test code = 1538) 265 mg/dL 70-110 H TESTED AT [facility] [address] [facility] [address] HEMOGLOBIN AND [id number] 12:41:00* Test Item Value Reference Range Interpretation Comments HEMOGLOBIN (BEAKER) (test code = 410) 7.6 GM/DL 13.7-17.5 L HEMATOCRIT (BEAKER) (test code = 411) 23.4 % 40.1-51.0 L POCT-GLUCOSE [id number] 12:29:00* Test Item Value Reference Range Interpretation Comments POC-GLUCOSE METER (BEAKER) (test code = 1538) 150 mg/dL 70-110 H TESTED AT [address] [address] RAD, CHEST, 1 VIEW, NON [id number] 08:40:00Reason for exam:->Pulmonary edema evaluationShould this be performed at the bedside?->YesFINAL REPORT CHEST ONE VIEW HISTORY: Pulmonary edema COMPARISON: 06/21/2018 FINDINGS: Single portable AP examination of the chest was performed. There are diffuse bilateral pulmonary opacities, similar appearance to a chest radiograph from 0441 hours on 06/21/2018. Comparison with a radiograph from 1315 hours on 06/21/2018 is difficult due to differences in technique. These findings could reflect pulmonary edema and/or pneumonia. No pleural effusions or pneumothorax are identified. Cardiac shadow normal in size. Right jugular catheter tip is in the SVC region. Tracheostomy tube tip is well above the viktoria. Feeding tube passes below the diaphragm. Signed: Kirt Sheffield Verified Date/Time: 06/22/2018 08:40:31 Reading Location: [facility] C013T Transitional Reading Room - GLUCOSE [id number] 06:33:00* Test Item Value Reference Range Interpretation Comments POC-GLUCOSE METER (BEAKER) (test code = 1538) 159 mg/dL 70-110 H TESTED AT [facility] [address] [facility] [address] LACTIC ACID, [id number] 04:16:00* Test Item Value Reference Range Interpretation Comments LACTATE BLOOD ARTERIAL (2) (BEAKER) (test code = 2874) 0.5 mmol/L 0.5-2.2 Specimen markedly ictericBASIC METABOLIC [id number] 04:12:00* Test Item Value Reference Range Interpretation Comments SODIUM (BEAKER) (test code = 381) 150 meq/L 136-145 H POTASSIUM (BEAKER) (test code = 379) 3.9 meq/L 3.5-5.1 CHLORIDE (BEAKER) (test code = 382) 119 meq/L 98-107 H CO2 (BEAKER) (test code = 355) 21 meq/L 22-29 L BLOOD UREA NITROGEN (BEAKER) (test code = 354) 61 mg/dL 7-21 H CREATININE (BEAKER) (test code = 358) 1.97 mg/dL 0.57-1.25 H GLUCOSE RANDOM (BEAKER) (test code = 652) 162 mg/dL 70-105 H CALCIUM (BEAKER) (test code = 697) 9.5 mg/dL 8.4-10.2 EGFR (BEAKER) (test code = 1092) 38 mL/min/1.73 sq m ESTIMATED GFR IS NOT ACCURATE CREATININE CLEARANCE IN PREDICTING GLOMERULAR FILTRATION RATE. ESTIMATED GFR IS NOT APPLICABLE FOR DIALYSIS PATIENTS. Specimen markedly ictericCALCIUM, [id number] 04:10:00* Test Item Value Reference Range Interpretation Comments CALCIUM IONIZED (BEAKER) (test code = 698) 1.28 mmol/L 1.12-1.27 H PH, BLOOD (BEAKER) (test code = 1810) 7.41 Check serum Ionized Calcium level after 4 hours after IV Calcium replacement. BLOOD GAS, [id number] 04:05:00* Test Item Value Reference Range Interpretation Comments PH ARTERIAL (BEAKER) (test code = 383) 7.42 7.35-7.45 PCO2 ARTERIAL (BEAKER) (test code = 384) 32 mmHg 35-45 L PO2 ARTERIAL (BEAKER) (test code = 385) 93 mmHg 80-90 H O2 SATURATION ARTERIAL (BEAKER) (test code = 386) 97.4 % 96.0 -97.0 H HCO3 ARTERIAL (BEAKER) (test code = 388) 21 mmol/L 21-29 BASE EXCESS ARTERIAL (BEAKER) (test code = 387) -3.6 mmol/L -2.0-3 .0 L PATIENT TEMPERATURE (BEAKER) (test code = 1818) 36.5 C FIO2 (BEAKER) (test code = 1819) 40.0 % CBC W/PLT COUNT & AUTO [id number] 04:02:00* Test Item Value Reference Range Interpretation Comments WHITE BLOOD CELL COUNT (BEAKER) (test code = 775) 23.2 K/ L 3.5- 10.5 H RED BLOOD CELL COUNT (BEAKER) (test code = 761) 2.67 M/ L 4.63-6 .08 L HEMOGLOBIN (BEAKER) (test code = 410) 8.1 GM/DL 13.7-17.5 L HEMATOCRIT (BEAKER) (test code = 411) 24.4 % 40.1-51.0 L MEAN CORPUSCULAR VOLUME (BEAKER) (test code = 753) 91.4 fL 79. 0-92.2 MEAN CORPUSCULAR HEMOGLOBIN (BEAKER) (test code = 751) 30.3 pg 25.7-32.2 MEAN CORPUSCULAR HEMOGLOBIN CONC (BEAKER) (test code = 752) 33.2 GM/DL 32.3-36.5 RED CELL DISTRIBUTION WIDTH (BEAKER) (test code = 412) 20.8 % 11.6-14.4 H PLATELET COUNT (BEAKER) (test code = 756) 217 K/CU MM 150-450 MEAN PLATELET VOLUME (BEAKER) (test code = 754) 11.1 fL 9.4-12 .4 NUCLEATED RED BLOOD CELLS (BEAKER) (test code = 413) 0 /100 WBC 0 -0 NEUTROPHILS RELATIVE PERCENT (BEAKER) (test code = 429) 69 % LYMPHOCYTES RELATIVE PERCENT (BEAKER) (test code = 430) 8 % MONOCYTES RELATIVE PERCENT (BEAKER) (test code = 431) 8 % EOSINOPHILS RELATIVE PERCENT (BEAKER) (test code = 432) 11 % BASOPHILS RELATIVE PERCENT (BEAKER) (test code = 437) 0 % NEUTROPHILS ABSOLUTE COUNT (BEAKER) (test code = 670) 15.99 K/ L 1.78-5.38 H LYMPHOCYTES ABSOLUTE COUNT (BEAKER) (test code = 414) 1.79 K/ L 1.32-3.57 MONOCYTES ABSOLUTE COUNT (BEAKER) (test code = 415) 1.85 K/ L 0. 30-0.82 H EOSINOPHILS ABSOLUTE COUNT (BEAKER) (test code = 416) 2.60 K/ L 0.04-0.54 H BASOPHILS ABSOLUTE COUNT (BEAKER) (test code = 417) 0.10 K/ L 0. 01-0.08 H IMMATURE GRANULOCYTES-RELATIVE PERCENT (BEAKER) (test code = 2801) 4 % 0-1 H [id number] 03:56:00* Test Item Value Reference Range Interpretation Comments MAGNESIUM (BEAKER) (test code = 627) 2.0 mg/dL 1.6-2.6 HEPATIC FUNCTION [id number] 03:56:00* Test Item Value Reference Range Interpretation Comments TOTAL PROTEIN (BEAKER) (test code = 770) 4.9 gm/dL 6.0-8.3 L ALBUMIN (BEAKER) (test code = 1145) 2.7 g/dL 3.5-5.0 L BILIRUBIN TOTAL (BEAKER) (test code = 377) 16.6 mg/dL 0.2-1.2 H BILIRUBIN DIRECT (BEAKER) (test code = 706) 12.4 mg/dL 0.1-0.5 H ALKALINE PHOSPHATASE (BEAKER) (test code = 346) 89 U/L 40-150 AST (SGOT) (BEAKER) (test code = 353) 261 U/L 5-34 H ALT (SGPT) (BEAKER) (test code = 347) 136 U/L 6-55 H Specimen markedly [id number] 03:53:00* Test Item Value Reference Range Interpretation Comments PARTIAL THROMBOPLASTIN TIME (BEAKER) (test code = 760) 40.4 seconds 22.5-36.0 H PROTHROMBIN [id number] 03:52:00* Test Item Value Reference Range Interpretation Comments PROTIME (BEAKER) (test code = 759) 17.5 seconds 11.7-14.7 H INR (BEAKER) (test code = 370) 1.4 <=5.9 RECOMMENDED COUMADIN/WARFARIN INR THERAPY RANGESSTANDARD DOSE: 2.0 - 3.0 Inclu herb: PROPHYLAXIS for venous thrombosis, systemic embolization; TREATMENT for giulia ous thrombosis and/or pulmonary embolus.HIGH RISK: Target INR is 2.5-3.5 for pat ients with mechanical heart valves.HEMOGLOBIN AND [id number] 03:41:00 * Test Item Value Reference Range Interpretation Comments HEMOGLOBIN (BEAKER) (test code = 410) 8.1 GM/DL 13.7-17.5 L HEMATOCRIT (BEAKER) (test code = 411) 24.4 % 40.1-51.0 L BLOOD [id number] 01:25:00* Test Item Value Reference Range Interpretation Comments CULTURE (BEAKER) (test code = 1095) No growth in 5 days BLOOD [id number] 01:25:00* Test Item Value Reference Range Interpretation Comments CULTURE (BEAKER) (test code = 1095) No growth in 5 days HEMOGLOBIN AND [id number] 00:32:00* Test Item Value Reference Range Interpretation Comments HEMOGLOBIN (BEAKER) (test code = 410) 9.1 GM/DL 13.7-17.5 L HEMATOCRIT (BEAKER) (test code = 411) 27.2 % 40.1-51.0 L POCT-GLUCOSE [id number] 00:18:00* Test Item Value Reference Range Interpretation Comments POC-GLUCOSE METER (BEAKER) (test code = 1538) 189 mg/dL 70-110 H TESTED AT [facility] [address] [facility] [address] ANG, VISCERAL [id number] 22:13:00FINAL REPORT Mesenteric Arteriography Clinical History:GI bleed Comparison: No comparisonImages presented: 230Conscious Sedation: Versed 1 mg and fentanyl 50 mcg intravenously Cardiopulmonary monitoring was performed by the attending radiologist and the radiology nurse. Monitoring was performed with pulse oximetry, blood pressure measurements and ECG tracings.Physician Patient facer to face intraservice Time: 60 minutesModality: Fluoroscopy.Anesthesia: 2% lidocaine without epinephrineApproach: Right common femoral arteryCatheter positioned: Superior mesenteric artery and super selectively in the ileocolic va sculatureContrast: Isovue 300 150 ccEstimated Blood Loss: less than 10 ccFluoro time (in minutes): 18.3 minutes. 230 imagesFor maximum sterile barrier protecti on a mask, cap, sterile gloves, sterile drape, sterile gown, and a cutaneous ant iseptic was utilized. Technique:After informed consent was obtained, the patient was prepped and draped in a sterile manner. Access was obtained via a percutan eous right common femoral arterial approach. An 18 gauge needle was placed into the artery and a .035 inch guide wire was advanced. A 5 [place] sheath was util ized. A 5 [place] Baker catheter was placed selectively into the superior mesent ben artery. 17 DSA runs were performed. Superior Mesenteric Artery: The super ior mesenteric artery was selected initially since the patient had a prior endos copy suggesting an arterial abnormality in the cecum. Multiple superselective an d selective catheterizations of the superior mesenteric artery were performed to characterize and actively bleeding vessel in the cecum which was visualized int ermittently. Two 2 mm coils were utilized. Following this procedure there was no significant blush within the suspected bleeding site. The patient ozzie ated the procedure well and left the department in the same condition. Hemo stasis was achieved by manual compression. Impression:Successful, uncomplicated superior mesenteric arteriogram with embolization of an ileocolic vessel. Inter mittent bleeding site was documented which was successfully coiled with 2 mm coi ls. The patient left the department in the same condition. Signed: Kai Rogel Verified Date/Time: 06/21/2018 22:13:37 Reading Location: [address] Body Reading Room Electronically signed by: KAI ROGEL M.D. on 05/28 10:13 PM RAD, ABDOMEN/KUB, 1 VIEW [id number] 20:57:00Reason for exam:-> abdominal distention sp coilsFINAL REPORT TECHNIQUE: Single View of the Abdomen. INDICATION: Abdominal distention after coils. COMPARISON: CT from 06/14/2018. FINDINGS/IMPRESSION: Feeding tube with tip over the second portion of the duodenum. The loops of small bowel are less distended than on the prior radiograph. However, loops of small bowel are mildly prominent. There is a small volume of gas in the colon. This bowel gas pattern is nonspecific and could be due to an adynamic ileus. However, serial KUBs are recommended to exclude a small bowel obstruction. There is streaky and patchy opacities in both lung bases which could be due to edema or infection. Signed: Kyle Rae MDReport Verified Date/Time: 06/21/2018 20:57:09 Reading Location: [facility] [id number] Consult Reading Room W/PLT COUNT & AUTO [id number] 18:35:00* Test Item Value Reference Range Interpretation Comments WHITE BLOOD CELL COUNT (BEAKER) (test code = 775) 28.3 K/ L 3.5- 10.5 H RED BLOOD CELL COUNT (BEAKER) (test code = 761) 2.40 M/ L 4.63-6 .08 L HEMOGLOBIN (BEAKER) (test code = 410) 7.4 GM/DL 13.7-17.5 L HEMATOCRIT (BEAKER) (test code = 411) 22.4 % 40.1-51.0 L MEAN CORPUSCULAR VOLUME (BEAKER) (test code = 753) 93.3 fL 79. 0-92.2 H MEAN CORPUSCULAR HEMOGLOBIN (BEAKER) (test code = 751) 30.8 pg 25.7-32.2 MEAN CORPUSCULAR HEMOGLOBIN CONC (BEAKER) (test code = 752) 33.0 GM/DL 32.3-36.5 RED CELL DISTRIBUTION WIDTH (BEAKER) (test code = 412) 20.3 % 11.6-14.4 H PLATELET COUNT (BEAKER) (test code = 756) 335 K/CU MM 150-450 MEAN PLATELET VOLUME (BEAKER) (test code = 754) 11.4 fL 9.4-12 .4 NUCLEATED RED BLOOD CELLS (BEAKER) (test code = 413) 0 /100 WBC 0 -0 (CELLAVISION MANUAL DIFF)2018-06-21 18:35:00* Test Item Value Reference Range Interpretation Comments NEUTROPHILS - REL (CELLAVISION)(BEAKER) (test code = 2816) 80 % LYMPHOCYTES - REL (CELLAVISION)(BEAKER) (test code = 2817) 3 % MONOCYTES - REL (CELLAVISION)(BEAKER) (test code = 2818) 3 % EOSINOPHILS - REL (CELLAVISION)(BEAKER) (test code = 2819) 8 % BASOPHILS - REL (CELLAVISION)(BEAKER) (test code = 2820) 2 % BANDS - REL (CELLAVISION)(BEAKER) (test code = 2826) 4 % 0 -10 NEUTROPHILS - ABS (CELLAVISION)(BEAKER) (test code = 2830) 22.64 K/ul 1.78-5.38 H LYMPHOCYTES - ABS (CELLAVISION)(BEAKER) (test code = 2831) 0.85 K/ul 1.32-3.57 L MONOCYTES - ABS (CELLAVISION)(BEAKER) (test code = 2832) 0.85 K/uL 0.30-0.82 H EOSINOPHILS - ABS (CELLAVISION)(BEAKER) (test code = 2834) 2.26 K/uL 0.04-0.54 H BASOPHILS - ABS (CELLAVISION)(BEAKER) (test code = 2835) 0.57 K/uL 0.01-0.08 H BANDS - ABS (CELLAVISION)(BEAKER) (test code = 2840) 1.13 K/uL 0 .00-0.80 H TOTAL COUNTED (BEAKER) (test code = 1351) 100 WBC MORPHOLOGY (BEAKER) (test code = 487) Normal CLUMPED PLATELETS (BEAKER) (test code = 436) Present ANISOCYTOSIS (BEAKER) (test code = 961) 1+ few POIKILOCYTES (BEAKER) (test code = 966) 2+ moderate ROULEAUX (BEAKER) (test code = 763) 1+ few ELLIPTOCYTES (BEAKER) (test code = 962) 1+ few BASOPHILIC STIPPLING (BEAKER) (test code = 473) Present ARTIFACT (CELLAVISION)(BEAKER) (test code = 3432) Present PLATELET CONCENTRATION (CELLAVISION)(BEAKER) (test code = 3438) Cheryl quate Received comment: User comments: Slide comments: POCT-GLUCOSE [id number] 17:53:00* Test Item Value Reference Range Interpretation Comments POC-GLUCOSE METER (BEAKER) (test code = 1538) 212 mg/dL 70-110 H TESTED AT [facility] [address] [facility] [address] BASIC METABOLIC [id number] 17:52:00* Test Item Value Reference Range Interpretation Comments SODIUM (BEAKER) (test code = 381) 145 meq/L 136-145 POTASSIUM (BEAKER) (test code = 379) 3.9 meq/L 3.5-5.1 CHLORIDE (BEAKER) (test code = 382) 114 meq/L 98-107 H CO2 (BEAKER) (test code = 355) 21 meq/L 22-29 L BLOOD UREA NITROGEN (BEAKER) (test code = 354) 69 mg/dL 7-21 H CREATININE (BEAKER) (test code = 358) 2.01 mg/dL 0.57-1.25 H GLUCOSE RANDOM (BEAKER) (test code = 652) 218 mg/dL 70-105 H CALCIUM (BEAKER) (test code = 697) 7.8 mg/dL 8.4-10.2 L EGFR (BEAKER) (test code = 1092) 37 mL/min/1.73 sq m ESTIMATED GFR IS NOT ACCURATE CREATININE CLEARANCE IN PREDICTING GLOMERULAR FILTRATION RATE. ESTIMATED GFR IS NOT APPLICABLE FOR DIALYSIS PATIENTS. Specimen markedly ictericLACTIC ACID, [id number] 17:45:00* Test Item Value Reference Range Interpretation Comments LACTATE BLOOD ARTERIAL (2) (BEAKER) (test code = 2874) 0.6 mmol/L 0.5-2.2 Specimen markedly ictericHEMOGLOBIN AND [id number] 17:32:00* Test Item Value Reference Range Interpretation Comments HEMOGLOBIN (BEAKER) (test code = 410) 7.4 GM/DL 13.7-17.5 L HEMATOCRIT (BEAKER) (test code = 411) 22.4 % 40.1-51.0 L BLOOD GAS, [id number] 17:25:00* Test Item Value Reference Range Interpretation Comments PH ARTERIAL (BEAKER) (test code = 383) 7.43 7.35-7.45 PCO2 ARTERIAL (BEAKER) (test code = 384) 32 mmHg 35-45 L PO2 ARTERIAL (BEAKER) (test code = 385) 107 mmHg 80-90 H O2 SATURATION ARTERIAL (BEAKER) (test code = 386) 97.9 % 96.0 -97.0 H HCO3 ARTERIAL (BEAKER) (test code = 388) 21 mmol/L 21-29 BASE EXCESS ARTERIAL (BEAKER) (test code = 387) -3.2 mmol/L -2.0-3 .0 L PATIENT TEMPERATURE (BEAKER) (test code = 1818) 37.5 C FIO2 (BEAKER) (test code = 1819) 40.0 % THROMBOELASTOGRAPH (TEG)2018-06-21 14:46:00* Test Item Value Reference Range Interpretation Comments TEG ACTIVATED CLOTTING TIME (BEAKER) (test code = 1407) 5.7 minutes 4.0-7.0 TEG FIBRINOGEN ACTIVITY (BEAKER) (test code = 1408) 79.8 degrees 61 .0-73.0 H TEG PLT. AGGREGATION (BEAKER) (test code = 1409) 72.4 MM 55.0- 65.0 H TEG FIBRINOLYSIS (BEAKER) (test code = 1410) 0.0 % 0.0-5.0 TGH ACTIVATED CLOTTING TIME (BEAKER) (test code = 1411) 5.8 minutes 4.0-7.0 TGH FIBRINOGEN ACTIVITY (BEAKER) (test code = 1412) 79.0 degrees 61 .0-73.0 H TGH PLT. AGGREGATION (BEAKER) (test code = 1413) 60.6 MM 55.0- 65.0 TGH FIBRINOLYSIS (BEAKER) (test code = 1414) 6.2 % 0.0-5.0 H RAD, CHEST, 1 VIEW, NON [id number] 14:14:00Reason for exam:->line placementShould this be performed at the bedside?->YesFINAL REPORT Portable chest. CLINICAL HISTORY: line placement. COMPARISON STUDY: June 21, 2018. FINDINGS: The cardiac silhouette is unremarkable. The pulmonary parenchyma demonstrates increased interstitial markings with some patchy airspace opacity in the left midlung and atelectasis or consolidation in the left lung base. A right jugular line has been inserted, the tip projecting over the SVC. The remaining support lines and tubes are unchanged. No pneumothorax is seen. Degenerative changes are noted. IMPRESSION: Right jugular line insertion, the tip projecting over the SVC with no pneumothorax. Improvement in pulmonary opacities. Signed: Andrew Sloaneport Verified Date/Time: 06/21/2018 14:14:23 Reading Location: [facility] C013W Consult Reading Room GLOBIN AND [id number] 14:12:00* Test Item Value Reference Range Interpretation Comments HEMOGLOBIN (BEAKER) (test code = 410) 6.3 GM/DL 13.7-17.5 L HEMATOCRIT (BEAKER) (test code = 411) 19.7 % 40.1-51.0 L PROTHROMBIN [id number] 14:10:00* Test Item Value Reference Range Interpretation Comments PROTIME (BEAKER) (test code = 759) 18.5 seconds 11.7-14.7 H INR (BEAKER) (test code = 370) 1.5 <=5.9 RECOMMENDED COUMADIN/WARFARIN INR THERAPY RANGESSTANDARD DOSE: 2.0 - 3.0 Inclu herb: PROPHYLAXIS for venous thrombosis, systemic embolization; TREATMENT for giulia ous thrombosis and/or pulmonary embolus.HIGH RISK: Target INR is 2.5-3.5 for pat ients with mechanical heart valves.[id number] 14:10:00* Test Item Value Reference Range Interpretation Comments FIBRINOGEN LEVEL (BEAKER) (test code = 658) 405 mg/dl 225-434 [id number] 14:10:00* Test Item Value Reference Range Interpretation Comments PARTIAL THROMBOPLASTIN TIME (BEAKER) (test code = 760) 43.9 seconds 22.5-36.0 H LACTIC ACID, [id number] 13:57:00* Test Item Value Reference Range Interpretation Comments LACTATE BLOOD ARTERIAL (2) (BEAKER) (test code = 2874) 0.8 mmol/L 0.5-2.2 Specimen markedly ictericPLATELET [id number] 13:47:00* Test Item Value Reference Range Interpretation Comments PLATELET COUNT (BEAKER) (test code = 756) 347 K/CU MM 150-450 CALCIUM, [id number] 13:46:00* Test Item Value Reference Range Interpretation Comments CALCIUM IONIZED (BEAKER) (test code = 698) 1.03 mmol/L 1.12-1.27 L PH, BLOOD (BEAKER) (test code = 1810) 7.40 POTASSIUM-STAT [id number] 13:45:00* Test Item Value Reference Range Interpretation Comments POTASSIUM (BEAKER) (test code = 379) 3.3 meq/L 3.6-5.5 L GLUCOSE-STAT [id number] 13:45:00* Test Item Value Reference Range Interpretation Comments GLUCOSE RANDOM (BEAKER) (test code = 652) 213 mg/dL 70-110 H HGB/HCT (H&H) - STAT [id number] 13:45:00* Test Item Value Reference Range Interpretation Comments HEMOGLOBIN (BEAKER) (test code = 410) 6.4 g/dL 13.0-16.8 L HEMATOCRIT (BEAKER) (test code = 411) 19.0 % 40.0-50.0 L BLOOD GAS, [id number] 13:45:00* Test Item Value Reference Range Interpretation Comments PH ARTERIAL (BEAKER) (test code = 383) 7.41 7.35-7.45 PCO2 ARTERIAL (BEAKER) (test code = 384) 35 mmHg 35-45 PO2 ARTERIAL (BEAKER) (test code = 385) 120 mmHg 80-90 H O2 SATURATION ARTERIAL (BEAKER) (test code = 386) 98.4 % 96.0 -97.0 H HCO3 ARTERIAL (BEAKER) (test code = 388) 22 mmol/L 21-29 BASE EXCESS ARTERIAL (BEAKER) (test code = 387) -2.7 mmol/L -2.0-3 .0 L PATIENT TEMPERATURE (BEAKER) (test code = 1818) 37.5 C FIO2 (BEAKER) (test code = 1819) 40.0 % SODIUM NA-STAT [id number] 13:44:00* Test Item Value Reference Range Interpretation Comments SODIUM (BEAKER) (test code = 381) 142 meq/L 135-148 [id number] 12:39:00* Test Item Value Reference Range Interpretation Comments PROCALCITONIN (BEAKER) (test code = 3036) 3.47 ng/mL <0.05 H SEPSIS RISK (ng/mL)Low: 0.05-0.50Intermediate: 0.51-2.00High: > =2.01POCT-GLUCOSE [id number] 12:37:00* Test Item Value Reference Range Interpretation Comments POC-GLUCOSE METER (BEAKER) (test code = 1538) 242 mg/dL 70-110 H TESTED AT [facility] [address] [facility] [address] LACTIC ACID, [id number] 12:37:00* Test Item Value Reference Range Interpretation Comments LACTATE BLOOD ARTERIAL (2) (BEAKER) (test code = 2874) 1.0 mmol/L 0.5-2.2 Specimen markedly ictericBLOOD GAS, [id number] 12:23:00* Test Item Value Reference Range Interpretation Comments PH ARTERIAL (BEAKER) (test code = 383) 7.44 7.35-7.45 PCO2 ARTERIAL (BEAKER) (test code = 384) 34 mmHg 35-45 L PO2 ARTERIAL (BEAKER) (test code = 385) 131 mmHg 80-90 H O2 SATURATION ARTERIAL (BEAKER) (test code = 386) 98.8 % 96.0 -97.0 H HCO3 ARTERIAL (BEAKER) (test code = 388) 23 mmol/L 21-29 BASE EXCESS ARTERIAL (BEAKER) (test code = 387) -1.3 mmol/L -2.0-3 .0 PATIENT TEMPERATURE (BEAKER) (test code = 1818) 36.9 C FIO2 (BEAKER) (test code = 1819) 40.0 % HEMOGLOBIN AND [id number] 11:40:00* Test Item Value Reference Range Interpretation Comments HEMOGLOBIN (BEAKER) (test code = 410) 7.3 GM/DL 13.7-17.5 L HEMATOCRIT (BEAKER) (test code = 411) 22.6 % 40.1-51.0 L URINALYSIS W/ REFLEX URINE [id number] 11:19:00* Test Item Value Reference Range Interpretation Comments COLOR (BEAKER) (test code = 470) Dark Yellow CLARITY (BEAKER) (test code = 469) Clear SPECIFIC GRAVITY UA (BEAKER) (test code = 468) 1.010 1.001-1 .035 PH UA (BEAKER) (test code = 467) 5.5 5.0-8.0 PROTEIN UA (BEAKER) (test code = 464) 10 mg/dL Negative A GLUCOSE UA (BEAKER) (test code = 365) Negative Negative KETONES UA (BEAKER) (test code = 371) Negative Negative BILIRUBIN UA (BEAKER) (test code = 462) Positive Negative A BLOOD UA (BEAKER) (test code = 461) Negative Negative NITRITE UA (BEAKER) (test code = 465) Negative Negative LEUKOCYTE ESTERASE UA (BEAKER) (test code = 466) Negative Negat mumtaz UROBILINOGEN UA (BEAKER) (test code = 463) 0.2 mg/dL 0.2-1.0 RBC UA (BEAKER) (test code = 519) 0 /HPF WBC UA (BEAKER) (test code = 520) 1 /HPF BACTERIA (BEAKER) (test code = 517) Rare MUCUS (BEAKER) (test code = 1574) Rare SQUAMOUS EPITHELIAL (BEAKER) (test code = 516) < /HPF HYALINE CASTS (BEAKER) (test code = 514) 5 /LPF SOURCE(BEAKER) (test code = 2795) OXYGEN SATURATION, [id number] 11:10:00* Test Item Value Reference Range Interpretation Comments O2 SATURATION (MEASURED) (BEAKER) (test code = 1455) 63.5 % POCT-GLUCOSE [id number] 09:37:00* Test Item Value Reference Range Interpretation Comments POC-GLUCOSE METER (BEAKER) (test code = 1538) 258 mg/dL 70-110 H TESTED AT [facility] [address] [facility] [address] CBC W/PLT COUNT & AUTO [id number] 08:40:00* Test Item Value Reference Range Interpretation Comments WHITE BLOOD CELL COUNT (BEAKER) (test code = 775) 25.3 K/ L 3.5- 10.5 H RED BLOOD CELL COUNT (BEAKER) (test code = 761) 2.43 M/ L 4.63-6 .08 L HEMOGLOBIN (BEAKER) (test code = 410) 7.8 GM/DL 13.7-17.5 L HEMATOCRIT (BEAKER) (test code = 411) 24.1 % 40.1-51.0 L MEAN CORPUSCULAR VOLUME (BEAKER) (test code = 753) 99.2 fL 79. 0-92.2 H MEAN CORPUSCULAR HEMOGLOBIN (BEAKER) (test code = 751) 32.1 pg 25.7-32.2 MEAN CORPUSCULAR HEMOGLOBIN CONC (BEAKER) (test code = 752) 32.4 GM/DL 32.3-36.5 RED CELL DISTRIBUTION WIDTH (BEAKER) (test code = 412) 22.0 % 11.6-14.4 H PLATELET COUNT (BEAKER) (test code = 756) 294 K/CU MM 150-450 MEAN PLATELET VOLUME (BEAKER) (test code = 754) 11.2 fL 9.4-12 .4 NUCLEATED RED BLOOD CELLS (BEAKER) (test code = 413) 0 /100 WBC 0 -0 (CELLAVISION MANUAL DIFF)2018-06-21 08:40:00* Test Item Value Reference Range Interpretation Comments NEUTROPHILS - REL (CELLAVISION)(BEAKER) (test code = 2816) 83 % LYMPHOCYTES - REL (CELLAVISION)(BEAKER) (test code = 2817) 2 % MONOCYTES - REL (CELLAVISION)(BEAKER) (test code = 2818) 2 % EOSINOPHILS - REL (CELLAVISION)(BEAKER) (test code = 2819) 10 % MYELOCYTES - REL (CELLAVISION)(BEAKER) (test code = 2822) 1 % 0-0 H PROMYELOCYTES - REL (CELLAVSION)(BEAKER) (test code = 2825) 1 % 0-0 H BANDS - REL (CELLAVISION)(BEAKER) (test code = 2826) 1 % 0 -10 NEUTROPHILS - ABS (CELLAVISION)(BEAKER) (test code = 2830) 21.00 K/ul 1.78-5.38 H LYMPHOCYTES - ABS (CELLAVISION)(BEAKER) (test code = 2831) 0.51 K/ul 1.32-3.57 L MONOCYTES - ABS (CELLAVISION)(BEAKER) (test code = 2832) 0.51 K/uL 0.30-0.82 EOSINOPHILS - ABS (CELLAVISION)(BEAKER) (test code = 2834) 2.53 K/uL 0.04-0.54 H MYELOCYTES-ABS (CELLAVISION)(BEAKER) (test code = 2837) 0.25 K/uL 0.00-0.00 H PROMYELOCYTES - ABS (CELLAVISION)(BEAKER) (test code = 2838) 0.25 K/uL 0.00-0.00 H BANDS - ABS (CELLAVISION)(BEAKER) (test code = 2840) 0.25 K/uL 0 .00-0.80 TOTAL COUNTED (BEAKER) (test code = 1351) 100 CLUMPED PLATELETS (BEAKER) (test code = 436) Present SMUDGE CELLS (BEAKER) (test code = 1371) Present GIANT PLATELETS (BEAKER) (test code = 313) Present POLYCHROMATOPHILLIC RBCS(BEAKER) (test code = 478) 3+ many ANISOCYTOSIS (BEAKER) (test code = 961) 2+ moderate MACROCYTES (BEAKER) (test code = 964) 1+ few BASOPHILIC STIPPLING (BEAKER) (test code = 473) Present PLATELET CONCENTRATION (CELLAVISION)(BEAKER) (test code = 3438) Cheryl quate Received comment: User comments: Slide comments: RAD, CHEST, 1 VIEW, NON DEPT 2018-06-21 07:46:00Reason for exam:->Pulmonary edema evaluationShould this be performed at the bedside?->YesFINAL REPORT Portable chest. CLINICAL HISTORY: Pulmonary edema evaluation. COMPARISON STUDY: Chest x- ray from yesterday. FINDINGS: The cardiac silhouette is enlarged. The pulmonary parenchyma demonstrates interstitial and airspace opacities which are slightly more pronounced than on previous in the right lung base. The support lines and tubes are unchanged. No pneumothorax is seen. Degenerative changes are noted. IMPRESSION: Slight increase of opacity in the right lung base. Signed: Andrew Sloan MDReport Verified Date/Time: 06/21/2018 07:46:59 Reading Location: [facility] Radiology Reading Room TIC FUNCTION [id number] 04:40:00* Test Item Value Reference Range Interpretation Comments TOTAL PROTEIN (BEAKER) (test code = 770) 5.9 gm/dL 6.0-8.3 L ALBUMIN (BEAKER) (test code = 1145) 2.6 g/dL 3.5-5.0 L BILIRUBIN TOTAL (BEAKER) (test code = 377) 20.6 mg/dL 0.2-1.2 H BILIRUBIN DIRECT (BEAKER) (test code = 706) 14.9 mg/dL 0.1-0.5 H ALKALINE PHOSPHATASE (BEAKER) (test code = 346) 137 U/L 40-150 AST (SGOT) (BEAKER) (test code = 353) 346 U/L 5-34 H ALT (SGPT) (BEAKER) (test code = 347) 165 U/L 6-55 H Specimen markedly ictericBASIC METABOLIC [id number] 04:40:00* Test Item Value Reference Range Interpretation Comments SODIUM (BEAKER) (test code = 381) 144 meq/L 136-145 POTASSIUM (BEAKER) (test code = 379) 3.8 meq/L 3.5-5.1 CHLORIDE (BEAKER) (test code = 382) 108 meq/L 98-107 H CO2 (BEAKER) (test code = 355) 25 meq/L 22-29 BLOOD UREA NITROGEN (BEAKER) (test code = 354) 79 mg/dL 7-21 H CREATININE (BEAKER) (test code = 358) 2.58 mg/dL 0.57-1.25 H GLUCOSE RANDOM (BEAKER) (test code = 652) 233 mg/dL 70-105 H CALCIUM (BEAKER) (test code = 697) 8.6 mg/dL 8.4-10.2 EGFR (BEAKER) (test code = 1092) 28 mL/min/1.73 sq m ESTIMATED GFR IS NOT ACCURATE CREATININE CLEARANCE IN PREDICTING GLOMERULAR FILTRATION RATE. ESTIMATED GFR IS NOT APPLICABLE FOR DIALYSIS PATIENTS. Specimen markedly [id number] 04:26:00* Test Item Value Reference Range Interpretation Comments MAGNESIUM (BEAKER) (test code = 627) 2.1 mg/dL 1.6-2.6 LACTIC ACID, [id number] 04:17:00* Test Item Value Reference Range Interpretation Comments LACTATE BLOOD ARTERIAL (2) (BEAKER) (test code = 2874) 1.0 mmol/L 0.5-2.2 Specimen markedly [id number] 04:12:00* Test Item Value Reference Range Interpretation Comments PARTIAL THROMBOPLASTIN TIME (BEAKER) (test code = 760) 47.7 seconds 22.5-36.0 H PROTHROMBIN TIME/[id number] 04:11:00* Test Item Value Reference Range Interpretation Comments PROTIME (BEAKER) (test code = 759) 17.1 seconds 11.7-14.7 H INR (BEAKER) (test code = 370) 1.4 <=5.9 RECOMMENDED COUMADIN/WARFARIN INR THERAPY RANGESSTANDARD DOSE: 2.0 - 3.0 Inclu herb: PROPHYLAXIS for venous thrombosis, systemic embolization; TREATMENT for giulia ous thrombosis and/or pulmonary embolus.HIGH RISK: Target INR is 2.5-3.5 for pat ients with mechanical heart valves.BLOOD GAS, [id number] 03:57:00* Test Item Value Reference Range Interpretation Comments PH ARTERIAL (BEAKER) (test code = 383) 7.45 7.35-7.45 PCO2 ARTERIAL (BEAKER) (test code = 384) 37 mmHg 35-45 PO2 ARTERIAL (BEAKER) (test code = 385) 174 mmHg 80-90 H O2 SATURATION ARTERIAL (BEAKER) (test code = 386) 99.2 % 96.0 -97.0 H HCO3 ARTERIAL (BEAKER) (test code = 388) 25 mmol/L 21-29 BASE EXCESS ARTERIAL (BEAKER) (test code = 387) 0.8 mmol/L -2.0-3 .0 PATIENT TEMPERATURE (BEAKER) (test code = 1818) 37.5 C FIO2 (BEAKER) (test code = 1819) 40.0 % [id number] 01:01:00* Test Item Value Reference Range Interpretation Comments POTASSIUM (BEAKER) (test code = 379) 3.4 meq/L 3.5-5.1 L PRN - repeat glucose levels every 1 hour or as specified by insulin titration or ders until glucose level is less than 450 mg/dLCheck Serum Potassium level 2 roxy rs after oral potassium replacement completed or 30 min after intravenous potass ium replacement.[id number] 01:01:00* Test Item Value Reference Range Interpretation Comments MAGNESIUM (BEAKER) (test code = 627) 2.0 mg/dL 1.6-2.6 PRN - repeat glucose levels every 1 hour or as specified by insulin titration or ders until glucose level is less than 450 mg/dLCheck Serum Potassium level 2 roxy rs after oral potassium replacement completed or 30 min after intravenous potass ium replacement.[id number] 01:01:00* Test Item Value Reference Range Interpretation Comments GLUCOSE RANDOM (BEAKER) (test code = 652) 220 mg/dL 70-105 H PRN - repeat glucose levels every 1 hour or as specified by insulin titration or ders until glucose level is less than 450 mg/dLCheck Serum Potassium level 2 roxy rs after oral potassium replacement completed or 30 min after intravenous potass ium replacement.CALCIUM, [id number] 00:47:00* Test Item Value Reference Range Interpretation Comments CALCIUM IONIZED (BEAKER) (test code = 698) 1.05 mmol/L 1.12-1.27 L PH, BLOOD (BEAKER) (test code = 1810) 7.48 Check serum Ionized Calcium level after 4 hours after IV Calcium replacement. BLOOD GAS, [id number] 21:09:00* Test Item Value Reference Range Interpretation Comments PH ARTERIAL (BEAKER) (test code = 383) 7.45 7.35-7.45 PCO2 ARTERIAL (BEAKER) (test code = 384) 39 mmHg 35-45 PO2 ARTERIAL (BEAKER) (test code = 385) 137 mmHg 80-90 H O2 SATURATION ARTERIAL (BEAKER) (test code = 386) 98.8 % 96.0 -97.0 H HCO3 ARTERIAL (BEAKER) (test code = 388) 26 mmol/L 21-29 BASE EXCESS ARTERIAL (BEAKER) (test code = 387) 2.1 mmol/L -2.0-3 .0 PATIENT TEMPERATURE (BEAKER) (test code = 1818) 38.0 C FIO2 (BEAKER) (test code = 1819) 40.0 % Before ventPOCT-GLUCOSE [id number] 17:55:00* Test Item Value Reference Range Interpretation Comments POC-GLUCOSE METER (BEAKER) (test code = 1538) 254 mg/dL 70-110 H TESTED AT [facility] [address] [facility] [address] BASIC METABOLIC [id number] 17:37:00* Test Item Value Reference Range Interpretation Comments SODIUM (BEAKER) (test code = 381) 143 meq/L 136-145 POTASSIUM (BEAKER) (test code = 379) 3.8 meq/L 3.5-5.1 CHLORIDE (BEAKER) (test code = 382) 104 meq/L 98-107 CO2 (BEAKER) (test code = 355) 26 meq/L 22-29 BLOOD UREA NITROGEN (BEAKER) (test code = 354) 84 mg/dL 7-21 H CREATININE (BEAKER) (test code = 358) 2.86 mg/dL 0.57-1.25 H GLUCOSE RANDOM (BEAKER) (test code = 652) 238 mg/dL 70-105 H CALCIUM (BEAKER) (test code = 697) 8.5 mg/dL 8.4-10.2 EGFR (BEAKER) (test code = 1092) 25 mL/min/1.73 sq m ESTIMATED GFR IS NOT ACCURATE CREATININE CLEARANCE IN PREDICTING GLOMERULAR FILTRATION RATE. ESTIMATED GFR IS NOT APPLICABLE FOR DIALYSIS PATIENTS. Specimen markedly ictericHEMOGLOBIN AND [id number] 17:18:00* Test Item Value Reference Range Interpretation Comments HEMOGLOBIN (BEAKER) (test code = 410) 8.2 GM/DL 13.7-17.5 L HEMATOCRIT (BEAKER) (test code = 411) 24.9 % 40.1-51.0 L CALCIUM, [id number] 17:14:00* Test Item Value Reference Range Interpretation Comments CALCIUM IONIZED (BEAKER) (test code = 698) 1.04 mmol/L 1.12-1.27 L PH, BLOOD (BEAKER) (test code = 1810) 7.49 Check serum Ionized Calcium level after 4 hours after IV Calcium replacement. POCT-GLUCOSE [id number] 17:00:00* Test Item Value Reference Range Interpretation Comments POC-GLUCOSE METER (BEAKER) (test code = 1538) 238 mg/dL 70-110 H TESTED AT [facility] [address] [facility] [address] POCT-GLUCOSE [id number] 11:59:00* Test Item Value Reference Range Interpretation Comments POC-GLUCOSE METER (BEAKER) (test code = 1538) 199 mg/dL 70-110 H TESTED AT [facility] [address] [facility] [address] BASIC METABOLIC [id number] 10:07:00* Test Item Value Reference Range Interpretation Comments SODIUM (BEAKER) (test code = 381) 142 meq/L 136-145 POTASSIUM (BEAKER) (test code = 379) 3.7 meq/L 3.5-5.1 CHLORIDE (BEAKER) (test code = 382) 102 meq/L 98-107 CO2 (BEAKER) (test code = 355) 25 meq/L 22-29 BLOOD UREA NITROGEN (BEAKER) (test code = 354) 89 mg/dL 7-21 H CREATININE (BEAKER) (test code = 358) 3.14 mg/dL 0.57-1.25 H GLUCOSE RANDOM (BEAKER) (test code = 652) 245 mg/dL 70-105 H CALCIUM (BEAKER) (test code = 697) 8.6 mg/dL 8.4-10.2 EGFR (BEAKER) (test code = 1092) 22 mL/min/1.73 sq m ESTIMATED GFR IS NOT ACCURATE CREATININE CLEARANCE IN PREDICTING GLOMERULAR FILTRATION RATE. ESTIMATED GFR IS NOT APPLICABLE FOR DIALYSIS PATIENTS. Specimen markedly ictericHEMOGLOBIN AND [id number] 09:56:00* Test Item Value Reference Range Interpretation Comments HEMOGLOBIN (BEAKER) (test code = 410) 8.2 GM/DL 13.7-17.5 L HEMATOCRIT (BEAKER) (test code = 411) 24.9 % 40.1-51.0 L SPUTUM CULTURE + GRAM [id number] 09:21:00* Test Item Value Reference Range Interpretation Comments CULTURE (BEAKER) (test code = 1095) <1+ Normal respiratory chase pr esent GRAM STAIN RESULT (BEAKER) (test code = 1123) <1+ WBCs GRAM STAIN RESULT (BEAKER) (test code = 87913) 0-5 epithelial cells GRAM STAIN RESULT (BEAKER) (test code = 49126) No organisms seen CBC W/PLT COUNT & AUTO [id number] 08:52:00* Test Item Value Reference Range Interpretation Comments WHITE BLOOD CELL COUNT (BEAKER) (test code = 775) 27.6 K/ L 3.5- 10.5 H RED BLOOD CELL COUNT (BEAKER) (test code = 761) 2.58 M/ L 4.63-6 .08 L HEMOGLOBIN (BEAKER) (test code = 410) 8.3 GM/DL 13.7-17.5 L HEMATOCRIT (BEAKER) (test code = 411) 25.3 % 40.1-51.0 L MEAN CORPUSCULAR VOLUME (BEAKER) (test code = 753) 98.1 fL 79. 0-92.2 H MEAN CORPUSCULAR HEMOGLOBIN (BEAKER) (test code = 751) 32.2 pg 25.7-32.2 MEAN CORPUSCULAR HEMOGLOBIN CONC (BEAKER) (test code = 752) 32.8 GM/DL 32.3-36.5 RED CELL DISTRIBUTION WIDTH (BEAKER) (test code = 412) 21.5 % 11.6-14.4 H PLATELET COUNT (BEAKER) (test code = 756) 336 K/CU MM 150-450 MEAN PLATELET VOLUME (BEAKER) (test code = 754) 11.6 fL 9.4-12 .4 NUCLEATED RED BLOOD CELLS (BEAKER) (test code = 413) 0 /100 WBC 0 -0 (CELLAVISION MANUAL DIFF)2018-06-20 08:52:00* Test Item Value Reference Range Interpretation Comments NEUTROPHILS - REL (CELLAVISION)(BEAKER) (test code = 2816) 84 % LYMPHOCYTES - REL (CELLAVISION)(BEAKER) (test code = 2817) 2 % MONOCYTES - REL (CELLAVISION)(BEAKER) (test code = 2818) 10 % EOSINOPHILS - REL (CELLAVISION)(BEAKER) (test code = 2819) 4 % NEUTROPHILS - ABS (CELLAVISION)(BEAKER) (test code = 2830) 23.18 K/ul 1.78-5.38 H LYMPHOCYTES - ABS (CELLAVISION)(BEAKER) (test code = 2831) 0.55 K/ul 1.32-3.57 L MONOCYTES - ABS (CELLAVISION)(BEAKER) (test code = 2832) 2.76 K/uL 0.30-0.82 H EOSINOPHILS - ABS (CELLAVISION)(BEAKER) (test code = 2834) 1.10 K/uL 0.04-0.54 H TOTAL COUNTED (BEAKER) (test code = 1351) 100 WBC MORPHOLOGY (BEAKER) (test code = 487) Normal LARGE PLT(BEAKER) (test code = 2156) Present POLYCHROMATOPHILLIC RBCS(BEAKER) (test code = 478) 1+ few HYPOCHROMIA (BEAKER) (test code = 963) 1+ few BASOPHILIC STIPPLING (BEAKER) (test code = 473) Present ARTIFACT (CELLAVISION)(BEAKER) (test code = 3432) Present PLATELET CONCENTRATION (CELLAVISION)(BEAKER) (test code = 3438) Cheryl quate Received comment: User comments: Slide comments: [id number] 08:27:00* Test Item Value Reference Range Interpretation Comments T3 TOTAL (BEAKER) (test code = 656) 55 ng/dL 48-159 CALCIUM, [id number] 05:17:00* Test Item Value Reference Range Interpretation Comments CALCIUM IONIZED (BEAKER) (test code = 698) 1.01 mmol/L 1.12-1.27 L PH, BLOOD (BEAKER) (test code = 1810) 7.43 HEPATIC FUNCTION [id number] 05:05:00* Test Item Value Reference Range Interpretation Comments TOTAL PROTEIN (BEAKER) (test code = 770) 6.0 gm/dL 6.0-8.3 ALBUMIN (BEAKER) (test code = 1145) 2.7 g/dL 3.5-5.0 L BILIRUBIN TOTAL (BEAKER) (test code = 377) 22.0 mg/dL 0.2-1.2 H BILIRUBIN DIRECT (BEAKER) (test code = 706) 17.6 mg/dL 0.1-0.5 H ALKALINE PHOSPHATASE (BEAKER) (test code = 346) 121 U/L 40-150 AST (SGOT) (BEAKER) (test code = 353) 309 U/L 5-34 H ALT (SGPT) (BEAKER) (test code = 347) 144 U/L 6-55 H Specimen markedly ictericBASIC METABOLIC [id number] 05:05:00* Test Item Value Reference Range Interpretation Comments SODIUM (BEAKER) (test code = 381) 142 meq/L 136-145 POTASSIUM (BEAKER) (test code = 379) 3.5 meq/L 3.5-5.1 CHLORIDE (BEAKER) (test code = 382) 101 meq/L 98-107 CO2 (BEAKER) (test code = 355) 26 meq/L 22-29 BLOOD UREA NITROGEN (BEAKER) (test code = 354) 92 mg/dL 7-21 H CREATININE (BEAKER) (test code = 358) 3.26 mg/dL 0.57-1.25 H GLUCOSE RANDOM (BEAKER) (test code = 652) 184 mg/dL 70-105 H CALCIUM (BEAKER) (test code = 697) 8.3 mg/dL 8.4-10.2 L EGFR (BEAKER) (test code = 1092) 21 mL/min/1.73 sq m ESTIMATED GFR IS NOT ACCURATE CREATININE CLEARANCE IN PREDICTING GLOMERULAR FILTRATION RATE. ESTIMATED GFR IS NOT APPLICABLE FOR DIALYSIS PATIENTS. Specimen markedly [id number] 05:04:00* Test Item Value Reference Range Interpretation Comments MAGNESIUM (BEAKER) (test code = 627) 2.2 mg/dL 1.6-2.6 RAD, CHEST, 1 VIEW, NON [id number] 04:59:00Reason for exam:->Pulmonary edema evaluationShould this be performed at the bedside?->YesFINAL REPORT RAD, CHEST, 1 VIEW, NON DEPT INDICATION: Pulmonary edema evaluation COMPARISON: Prior day's exam FINDINGS: Portable frontal view of the chest. IMPRESSION: Support Lines: Tracheostomy and feeding tube are unchanged . Left- sided central catheter tip overlies the proximal SVC.Lungs and pleura: Bilateral airspace opacities and low lung volumes are unchanged. tiny right pneumothorax is difficult to exclude and recommend attention on follow-up.Heart and mediastinum: Stable contours. Additional findings: None. Signed: Adri Avendaño MDReport Verified Date/Time: 06/20/2018 04:59:55 Reading Location: [address] Neuro Reading Room [id number] 04:44:00* Test Item Value Reference Range Interpretation Comments PARTIAL THROMBOPLASTIN TIME (BEAKER) (test code = 760) 45.0 seconds 22.5-36.0 H PROTHROMBIN TIME/[id number] 04:43:00* Test Item Value Reference Range Interpretation Comments PROTIME (BEAKER) (test code = 759) 16.3 seconds 11.7-14.7 H INR (BEAKER) (test code = 370) 1.3 <=5.9 RECOMMENDED COUMADIN/WARFARIN INR THERAPY RANGESSTANDARD DOSE: 2.0 - 3.0 Inclu herb: PROPHYLAXIS for venous thrombosis, systemic embolization; TREATMENT for giulia ous thrombosis and/or pulmonary embolus.HIGH RISK: Target INR is 2.5-3.5 for pat ients with mechanical heart valves.LACTIC ACID, [id number] 04:41:00* Test Item Value Reference Range Interpretation Comments LACTATE BLOOD ARTERIAL (2) (BEAKER) (test code = 2874) 0.6 mmol/L 0.5-2.2 Specimen markedly ictericBLOOD GAS, [id number] 04:29:00* Test Item Value Reference Range Interpretation Comments PH ARTERIAL (BEAKER) (test code = 383) 7.45 7.35-7.45 PCO2 ARTERIAL (BEAKER) (test code = 384) 40 mmHg 35-45 PO2 ARTERIAL (BEAKER) (test code = 385) 75 mmHg 80-90 L O2 SATURATION ARTERIAL (BEAKER) (test code = 386) 95.6 % 96.0 -97.0 L HCO3 ARTERIAL (BEAKER) (test code = 388) 27 mmol/L 21-29 BASE EXCESS ARTERIAL (BEAKER) (test code = 387) 2.9 mmol/L -2.0-3 .0 PATIENT TEMPERATURE (BEAKER) (test code = 1818) 37.0 C FIO2 (BEAKER) (test code = 1819) 40.0 % BASIC METABOLIC [id number] 01:12:00* Test Item Value Reference Range Interpretation Comments SODIUM (BEAKER) (test code = 381) 141 meq/L 136-145 POTASSIUM (BEAKER) (test code = 379) 3.6 meq/L 3.5-5.1 CHLORIDE (BEAKER) (test code = 382) 101 meq/L 98-107 CO2 (BEAKER) (test code = 355) 23 meq/L 22-29 BLOOD UREA NITROGEN (BEAKER) (test code = 354) 90 mg/dL 7-21 H CREATININE (BEAKER) (test code = 358) 3.26 mg/dL 0.57-1.25 H GLUCOSE RANDOM (BEAKER) (test code = 652) 229 mg/dL 70-105 H CALCIUM (BEAKER) (test code = 697) 8.0 mg/dL 8.4-10.2 L EGFR (BEAKER) (test code = 1092) 21 mL/min/1.73 sq m ESTIMATED GFR IS NOT ACCURATE CREATININE CLEARANCE IN PREDICTING GLOMERULAR FILTRATION RATE. ESTIMATED GFR IS NOT APPLICABLE FOR DIALYSIS PATIENTS. Specimen markedly ictericHEMOGLOBIN AND [id number] 00:24:00* Test Item Value Reference Range Interpretation Comments HEMOGLOBIN (BEAKER) (test code = 410) 8.3 GM/DL 13.7-17.5 L HEMATOCRIT (BEAKER) (test code = 411) 25.0 % 40.1-51.0 L POCT-GLUCOSE [id number] 00:18:00* Test Item Value Reference Range Interpretation Comments POC-GLUCOSE METER (BEAKER) (test code = 1538) 233 mg/dL 70-110 H TESTED AT [facility] [address] [facility] [address] HEMOGLOBIN AND [id number] 20:18:00* Test Item Value Reference Range Interpretation Comments HEMOGLOBIN (BEAKER) (test code = 410) 8.4 GM/DL 13.7-17.5 L HEMATOCRIT (BEAKER) (test code = 411) 25.0 % 40.1-51.0 L BASIC METABOLIC [id number] 19:06:00* Test Item Value Reference Range Interpretation Comments SODIUM (BEAKER) (test code = 381) 143 meq/L 136-145 POTASSIUM (BEAKER) (test code = 379) 4.1 meq/L 3.5-5.1 Specimen slightly hemolyzed CHLORIDE (BEAKER) (test code = 382) 103 meq/L 98-107 CO2 (BEAKER) (test code = 355) 23 meq/L 22-29 BLOOD UREA NITROGEN (BEAKER) (test code = 354) 91 mg/dL 7-21 H CREATININE (BEAKER) (test code = 358) 3.10 mg/dL 0.57-1.25 H Specimen slightly hemolyzed GLUCOSE RANDOM (BEAKER) (test code = 652) 167 mg/dL 70-105 H CALCIUM (BEAKER) (test code = 697) 8.2 mg/dL 8.4-10.2 L EGFR (BEAKER) (test code = 1092) 23 mL/min/1.73 sq m ESTIMATED GFR IS NOT ACCURATE CREATININE CLEARANCE IN PREDICTING GLOMERULAR FILTRATION RATE. ESTIMATED GFR IS NOT APPLICABLE FOR DIALYSIS PATIENTS. Specimen markedly ictericBASIC METABOLIC [id number] 19:06:00* Test Item Value Reference Range Interpretation Comments SODIUM (BEAKER) (test code = 381) 142 meq/L 136-145 POTASSIUM (BEAKER) (test code = 379) 4.0 meq/L 3.5-5.1 CHLORIDE (BEAKER) (test code = 382) 101 meq/L 98-107 CO2 (BEAKER) (test code = 355) 26 meq/L 22-29 BLOOD UREA NITROGEN (BEAKER) (test code = 354) 93 mg/dL 7-21 H CREATININE (BEAKER) (test code = 358) 3.22 mg/dL 0.57-1.25 H GLUCOSE RANDOM (BEAKER) (test code = 652) 175 mg/dL 70-105 H CALCIUM (BEAKER) (test code = 697) 8.4 mg/dL 8.4-10.2 EGFR (BEAKER) (test code = 1092) 22 mL/min/1.73 sq m ESTIMATED GFR IS NOT ACCURATE CREATININE CLEARANCE IN PREDICTING GLOMERULAR FILTRATION RATE. ESTIMATED GFR IS NOT APPLICABLE FOR DIALYSIS PATIENTS. Specimen markedly ictericHEMOGLOBIN AND [id number] 18:48:00* Test Item Value Reference Range Interpretation Comments HEMOGLOBIN (BEAKER) (test code = 410) 8.3 GM/DL 13.7-17.5 L HEMATOCRIT (BEAKER) (test code = 411) 25.7 % 40.1-51.0 L POCT-GLUCOSE [id number] 17:33:00* Test Item Value Reference Range Interpretation Comments POC-GLUCOSE METER (BEAKER) (test code = 1538) 193 mg/dL 70-110 H TESTED AT [facility] [address] [facility] [address] CYTOMEGALOVIRUS ANTIBODY, [id number] 14:16:00* Test Item Value Reference Range Interpretation Comments CYTOMEGALOVIRUS, IGG (BEAKER) (test code = 3429) Negative Negat mumtaz, Equivocal CMV IgG Result Interpretation: </= 0.8 Al Negative 0.9-1.0 Al Equivocal > /=1.1 Al PositiveCYTOMEGALOVIRUS ANTIBODY, [id number] 14:16:00* Test Item Value Reference Range Interpretation Comments CYTOMEGALOVIRUS IGM ANTIBODY (BEAKER) (test code = 3437) Neg ative Negative, Equivocal CMV IgM Result Interpretation: </= 0.8 Al Negative 0.9-1.0 Al Equivocal > /= 1.1 Al PositiveEBV ANTIBODY, [id number] 14:16:00* Test Item Value Reference Range Interpretation Comments ALEX MAE VIRAL CAPSID ANTIGEN IGG (BEAKER) (test code = 3415) Positive Negative, Equivocal A Alex Mae Viral Capsid Antigen IgG Result Interpretation: </= 0.8 Al Negative 0.9-1.0 Al Equivocal >/= 1.1 Al PositiveEBV ANTIBODY, [id number] 14:16:00* Test Item Value Reference Range Interpretation Comments ALEX MAE VIRAL CAPSID ANTIGEN IGM (BEAKER) (test code = 3418) Positive Negative, Equivocal A Alex Mae Viral Capsid Antigen IgM Result Interpretation: </= 0.8 Al Negative 0.9-1.0 Al Equivocal >/= 1.1 Al PositiveHEMOGLOBIN AND HEMATOCRIT 2018-06-19 13:40:00* Test Item Value Reference Range Interpretation Comments HEMOGLOBIN (BEAKER) (test code = 410) 8.5 GM/DL 13.7-17.5 L HEMATOCRIT (BEAKER) (test code = 411) 26.4 % 40.1-51.0 L POCT-GLUCOSE [id number] 12:45:00* Test Item Value Reference Range Interpretation Comments POC-GLUCOSE METER (BEAKER) (test code = 1538) 204 mg/dL 70-110 H TESTED AT [facility] [address] [place] [address] CBC W/PLT COUNT & AUTO [id number] 11:32:00* Test Item Value Reference Range Interpretation Comments WHITE BLOOD CELL COUNT (BEAKER) (test code = 775) 30.1 K/ L 3.5- 10.5 H RED BLOOD CELL COUNT (BEAKER) (test code = 761) 2.14 M/ L 4.63-6 .08 L HEMOGLOBIN (BEAKER) (test code = 410) 7.1 GM/DL 13.7-17.5 L HEMATOCRIT (BEAKER) (test code = 411) 22.3 % 40.1-51.0 L MEAN CORPUSCULAR VOLUME (BEAKER) (test code = 753) 104.2 fL 79. 0-92.2 H MEAN CORPUSCULAR HEMOGLOBIN (BEAKER) (test code = 751) 33.2 pg 25.7-32.2 H MEAN CORPUSCULAR HEMOGLOBIN CONC (BEAKER) (test code = 752) 31.8 GM/DL 32.3-36.5 L RED CELL DISTRIBUTION WIDTH (BEAKER) (test code = 412) 21.0 % 11.6-14.4 H PLATELET COUNT (BEAKER) (test code = 756) 325 K/CU MM 150-450 MEAN PLATELET VOLUME (BEAKER) (test code = 754) 11.9 fL 9.4-12 .4 NUCLEATED RED BLOOD CELLS (BEAKER) (test code = 413) 0 /100 WBC 0 -0 (CELLAVISION MANUAL DIFF)2018-06-19 11:32:00* Test Item Value Reference Range Interpretation Comments NEUTROPHILS - REL (CELLAVISION)(BEAKER) (test code = 2816) 75 % LYMPHOCYTES - REL (CELLAVISION)(BEAKER) (test code = 2817) 4 % MONOCYTES - REL (CELLAVISION)(BEAKER) (test code = 2818) 4 % EOSINOPHILS - REL (CELLAVISION)(BEAKER) (test code = 2819) 9 % BASOPHILS - REL (CELLAVISION)(BEAKER) (test code = 2820) 2 % BANDS - REL (CELLAVISION)(BEAKER) (test code = 2826) 6 % 0 -10 NEUTROPHILS - ABS (CELLAVISION)(BEAKER) (test code = 2830) 22.58 K/ul 1.78-5.38 H LYMPHOCYTES - ABS (CELLAVISION)(BEAKER) (test code = 2831) 1.20 K/ul 1.32-3.57 L MONOCYTES - ABS (CELLAVISION)(BEAKER) (test code = 2832) 1.20 K/uL 0.30-0.82 H EOSINOPHILS - ABS (CELLAVISION)(BEAKER) (test code = 2834) 2.71 K/uL 0.04-0.54 H BASOPHILS - ABS (CELLAVISION)(BEAKER) (test code = 2835) 0.60 K/uL 0.01-0.08 H BANDS - ABS (CELLAVISION)(BEAKER) (test code = 2840) 1.81 K/uL 0 .00-0.80 H TOTAL COUNTED (BEAKER) (test code = 1351) 100 WBC MORPHOLOGY (BEAKER) (test code = 487) Normal PLT MORPHOLOGY (BEAKER) (test code = 486) Normal POLYCHROMATOPHILLIC RBCS(BEAKER) (test code = 478) 1+ few ARTIFACT (CELLAVISION)(BEAKER) (test code = 3432) Present PLATELET CONCENTRATION (CELLAVISION)(BEAKER) (test code = 3438) Cheryl quate Received comment: User comments: Slide comments: RBC: manually reviewed rbc morp hology on the [id number] 11:25:00* Test Item Value Reference Range Interpretation Comments RPR SCREEN (BEAKER) (test code = 420) Nonreactive Nonreactive [id number] 11:23:00* Test Item Value Reference Range Interpretation Comments AMMONIA (BEAKER) (test code = 348) 62 mol/L 18-72 HEMOGLOBIN AND [id number] 10:37:00* Test Item Value Reference Range Interpretation Comments HEMOGLOBIN (BEAKER) (test code = 410) 7.9 GM/DL 13.7-17.5 L HEMATOCRIT (BEAKER) (test code = 411) 24.4 % 40.1-51.0 L BASIC METABOLIC [id number] 09:29:00* Test Item Value Reference Range Interpretation Comments SODIUM (BEAKER) (test code = 381) 142 meq/L 136-145 POTASSIUM (BEAKER) (test code = 379) 4.4 meq/L 3.5-5.1 CHLORIDE (BEAKER) (test code = 382) 102 meq/L 98-107 CO2 (BEAKER) (test code = 355) 27 meq/L 22-29 BLOOD UREA NITROGEN (BEAKER) (test code = 354) 91 mg/dL 7-21 H CREATININE (BEAKER) (test code = 358) 3.05 mg/dL 0.57-1.25 H GLUCOSE RANDOM (BEAKER) (test code = 652) 206 mg/dL 70-105 H CALCIUM (BEAKER) (test code = 697) 8.6 mg/dL 8.4-10.2 EGFR (BEAKER) (test code = 1092) 23 mL/min/1.73 sq m ESTIMATED GFR IS NOT ACCURATE CREATININE CLEARANCE IN PREDICTING GLOMERULAR FILTRATION RATE. ESTIMATED GFR IS NOT APPLICABLE FOR DIALYSIS PATIENTS. Specimen markedly ictericPOCT-GLUCOSE [id number] 08:36:00* Test Item Value Reference Range Interpretation Comments POC-GLUCOSE METER (BEAKER) (test code = 1538) 211 mg/dL 70-110 H TESTED AT [place] [id number] [facility] [address] RAD, CHEST, 1 VIEW, NON [id number] 07:24:00Reason for exam:->Pulmonary edema evaluationShould this be performed at the bedside?->YesFINAL REPORT CLINICAL HISTORY: Pulmonary edema evaluation TECHNIQUE: 1 view of the chest. COMPARISON: 06/18/2018 IMPRESSION: The supporting lines and tubes are unchanged. Bilateral interstitial infiltrates appear unchanged versus slightly decreased. There is no significant appearing pleural fluid. The cardiomediastinal silhouette is magnified by technique. Signed: Omero Mouraeport Verified Date/Time: 06/19/2018 07:24:06 Reading Location: [address] Neuro Reading Room Electronically signed by: OMERO MOURA M.D. on 07:24 AM [id number] 05:40:00* Test Item Value Reference Range Interpretation Comments PARTIAL THROMBOPLASTIN TIME (BEAKER) (test code = 760) 44.4 seconds 22.5-36.0 H PROTHROMBIN TIME/[id number] 05:39:00* Test Item Value Reference Range Interpretation Comments PROTIME (BEAKER) (test code = 759) 17.0 seconds 11.7-14.7 H INR (BEAKER) (test code = 370) 1.4 <=5.9 RECOMMENDED COUMADIN/WARFARIN INR THERAPY RANGESSTANDARD DOSE: 2.0 - 3.0 Inclu herb: PROPHYLAXIS for venous thrombosis, systemic embolization; TREATMENT for giulia ous thrombosis and/or pulmonary embolus.HIGH RISK: Target INR is 2.5-3.5 for pat ients with mechanical heart valves.HEPATIC FUNCTION [id number] 05:17:00* Test Item Value Reference Range Interpretation Comments TOTAL PROTEIN (BEAKER) (test code = 770) 5.8 gm/dL 6.0-8.3 L ALBUMIN (BEAKER) (test code = 1145) 2.6 g/dL 3.5-5.0 L BILIRUBIN TOTAL (BEAKER) (test code = 377) 24.9 mg/dL 0.2-1.2 H BILIRUBIN DIRECT (BEAKER) (test code = 706) 19.7 mg/dL 0.1-0.5 H ALKALINE PHOSPHATASE (BEAKER) (test code = 346) 126 U/L 40-150 AST (SGOT) (BEAKER) (test code = 353) 270 U/L 5-34 H ALT (SGPT) (BEAKER) (test code = 347) 130 U/L 6-55 H Specimen markedly ictericBASIC METABOLIC [id number] 05:17:00* Test Item Value Reference Range Interpretation Comments SODIUM (BEAKER) (test code = 381) 140 meq/L 136-145 POTASSIUM (BEAKER) (test code = 379) 4.4 meq/L 3.5-5.1 CHLORIDE (BEAKER) (test code = 382) 101 meq/L 98-107 CO2 (BEAKER) (test code = 355) 27 meq/L 22-29 BLOOD UREA NITROGEN (BEAKER) (test code = 354) 93 mg/dL 7-21 H CREATININE (BEAKER) (test code = 358) 2.86 mg/dL 0.57-1.25 H GLUCOSE RANDOM (BEAKER) (test code = 652) 178 mg/dL 70-105 H CALCIUM (BEAKER) (test code = 697) 8.7 mg/dL 8.4-10.2 EGFR (BEAKER) (test code = 1092) 25 mL/min/1.73 sq m ESTIMATED GFR IS NOT ACCURATE CREATININE CLEARANCE IN PREDICTING GLOMERULAR FILTRATION RATE. ESTIMATED GFR IS NOT APPLICABLE FOR DIALYSIS PATIENTS. Specimen markedly [id number] 05:13:00* Test Item Value Reference Range Interpretation Comments PHOSPHORUS (BEAKER) (test code = 604) 5.3 mg/dL 2.3-4.7 H [id number] 05:13:00* Test Item Value Reference Range Interpretation Comments MAGNESIUM (BEAKER) (test code = 627) 2.2 mg/dL 1.6-2.6 LACTIC ACID, [id number] 04:57:00* Test Item Value Reference Range Interpretation Comments LACTATE BLOOD ARTERIAL (2) (BEAKER) (test code = 2874) 0.7 mmol/L 0.5-2.2 Specimen markedly ictericCALCIUM, [id number] 04:46:00* Test Item Value Reference Range Interpretation Comments CALCIUM IONIZED (BEAKER) (test code = 698) 1.07 mmol/L 1.12-1.27 L PH, BLOOD (BEAKER) (test code = 1810) 7.47 BLOOD GAS, [id number] 04:46:00* Test Item Value Reference Range Interpretation Comments PH ARTERIAL (BEAKER) (test code = 383) 7.47 7.35-7.45 H PCO2 ARTERIAL (BEAKER) (test code = 384) 39 mmHg 35-45 PO2 ARTERIAL (BEAKER) (test code = 385) 92 mmHg 80-90 H O2 SATURATION ARTERIAL (BEAKER) (test code = 386) 97.4 % 96.0 -97.0 H HCO3 ARTERIAL (BEAKER) (test code = 388) 28 mmol/L 21-29 BASE EXCESS ARTERIAL (BEAKER) (test code = 387) 3.7 mmol/L -2.0-3 .0 H PATIENT TEMPERATURE (BEAKER) (test code = 1818) 37.4 C FIO2 (BEAKER) (test code = 1819) 40.0 % OCCULT BLOOD, [id number] 01:25:00* Test Item Value Reference Range Interpretation Comments FECAL OCCULT BLOOD (BEAKER) (test code = 618) Positive Negative A BASIC METABOLIC [id number] 23:56:00* Test Item Value Reference Range Interpretation Comments SODIUM (BEAKER) (test code = 381) 143 meq/L 136-145 POTASSIUM (BEAKER) (test code = 379) 4.3 meq/L 3.5-5.1 CHLORIDE (BEAKER) (test code = 382) 103 meq/L 98-107 CO2 (BEAKER) (test code = 355) 27 meq/L 22-29 BLOOD UREA NITROGEN (BEAKER) (test code = 354) 93 mg/dL 7-21 H CREATININE (BEAKER) (test code = 358) 2.59 mg/dL 0.57-1.25 H GLUCOSE RANDOM (BEAKER) (test code = 652) 151 mg/dL 70-105 H CALCIUM (BEAKER) (test code = 697) 8.7 mg/dL 8.4-10.2 EGFR (BEAKER) (test code = 1092) 28 mL/min/1.73 sq m ESTIMATED GFR IS NOT ACCURATE CREATININE CLEARANCE IN PREDICTING GLOMERULAR FILTRATION RATE. ESTIMATED GFR IS NOT APPLICABLE FOR DIALYSIS PATIENTS. Specimen markedly ictericCALCIUM, [id number] 23:54:00* Test Item Value Reference Range Interpretation Comments CALCIUM IONIZED (BEAKER) (test code = 698) 1.11 mmol/L 1.12-1.27 L PH, BLOOD (BEAKER) (test code = 1810) 7.46 Check serum Ionized Calcium level after 4 hours after IV Calcium replacement. HEMOGLOBIN AND [id number] 23:37:00* Test Item Value Reference Range Interpretation Comments HEMOGLOBIN (BEAKER) (test code = 410) 7.0 GM/DL 13.7-17.5 L HEMATOCRIT (BEAKER) (test code = 411) 22.2 % 40.1-51.0 L POCT-GLUCOSE [id number] 23:36:00* Test Item Value Reference Range Interpretation Comments POC-GLUCOSE METER (BEAKER) (test code = 1538) 161 mg/dL 70-110 H TESTED AT [facility] [address] [facility] [address] HEMOGLOBIN AND [id number] 20:42:00* Test Item Value Reference Range Interpretation Comments HEMOGLOBIN (BEAKER) (test code = 410) 7.2 GM/DL 13.7-17.5 L HEMATOCRIT (BEAKER) (test code = 411) 22.3 % 40.1-51.0 L CBC W/PLT COUNT & AUTO [id number] 18:06:00* Test Item Value Reference Range Interpretation Comments WHITE BLOOD CELL COUNT (BEAKER) (test code = 775) 29.2 K/ L 3.5- 10.5 H RED BLOOD CELL COUNT (BEAKER) (test code = 761) 2.33 M/ L 4.63-6 .08 L HEMOGLOBIN (BEAKER) (test code = 410) 7.8 GM/DL 13.7-17.5 L HEMATOCRIT (BEAKER) (test code = 411) 24.8 % 40.1-51.0 L MEAN CORPUSCULAR VOLUME (BEAKER) (test code = 753) 106.4 fL 79. 0-92.2 H MEAN CORPUSCULAR HEMOGLOBIN (BEAKER) (test code = 751) 33.5 pg 25.7-32.2 H MEAN CORPUSCULAR HEMOGLOBIN CONC (BEAKER) (test code = 752) 31.5 GM/DL 32.3-36.5 L RED CELL DISTRIBUTION WIDTH (BEAKER) (test code = 412) 21.1 % 11.6-14.4 H PLATELET COUNT (BEAKER) (test code = 756) 332 K/CU MM 150-450 MEAN PLATELET VOLUME (BEAKER) (test code = 754) 12.1 fL 9.4-12 .4 NUCLEATED RED BLOOD CELLS (BEAKER) (test code = 413) 1 /100 WBC 0 -0 H (CELLAVISION MANUAL DIFF)2018-06-18 18:06:00* Test Item Value Reference Range Interpretation Comments NEUTROPHILS - REL (CELLAVISION)(BEAKER) (test code = 2816) 84 % LYMPHOCYTES - REL (CELLAVISION)(BEAKER) (test code = 2817) 6 % MONOCYTES - REL (CELLAVISION)(BEAKER) (test code = 2818) 1 % EOSINOPHILS - REL (CELLAVISION)(BEAKER) (test code = 2819) 6 % BASOPHILS - REL (CELLAVISION)(BEAKER) (test code = 2820) 1 % METAMYELOCYTES - REL (CELLAVISION)(BEAKER) (test code = 2821) 2 % 0-0 H BANDS - REL (CELLAVISION)(BEAKER) (test code = 2826) 1 % 0 -10 NEUTROPHILS - ABS (CELLAVISION)(BEAKER) (test code = 2830) 24.53 K/ul 1.78-5.38 H LYMPHOCYTES - ABS (CELLAVISION)(BEAKER) (test code = 2831) 1.75 K/ul 1.32-3.57 MONOCYTES - ABS (CELLAVISION)(BEAKER) (test code = 2832) 0.29 K/uL 0.30-0.82 L EOSINOPHILS - ABS (CELLAVISION)(BEAKER) (test code = 2834) 1.75 K/uL 0.04-0.54 H BASOPHILS - ABS (CELLAVISION)(BEAKER) (test code = 2835) 0.29 K/uL 0.01-0.08 H METAMYELOCYTES - ABS (CELLAVISION)(BEAKER) (test code = 2836 ) 0.58 K/uL 0.00-0.00 H BANDS - ABS (CELLAVISION)(BEAKER) (test code = 2840) 0.29 K/uL 0 .00-0.80 TOTAL COUNTED (BEAKER) (test code = 1351) 100 WBC MORPHOLOGY (BEAKER) (test code = 487) Normal GIANT PLATELETS (BEAKER) (test code = 313) Present POLYCHROMATOPHILLIC RBCS(BEAKER) (test code = 478) 2+ moderate ANISOCYTOSIS (BEAKER) (test code = 961) 2+ moderate MICROCYTES (BEAKER) (test code = 965) 2+ moderate POIKILOCYTES (BEAKER) (test code = 966) 1+ few ROULEAUX (BEAKER) (test code = 763) 1+ few SPHEROCYTES (BEAKER) (test code = 768) 1+ few PLATELET CONCENTRATION (CELLAVISION)(BEAKER) (test code = 3438) Cheryl cohn Received comment: User comments: Slide comments: POCT-GLUCOSE [id number] 17:33:00* Test Item Value Reference Range Interpretation Comments POC-GLUCOSE METER (BEAKER) (test code = 1538) 196 mg/dL 70-110 H TESTED AT [facility] [address] [facility] [address] BASIC METABOLIC [id number] 17:24:00* Test Item Value Reference Range Interpretation Comments SODIUM (BEAKER) (test code = 381) 143 meq/L 136-145 POTASSIUM (BEAKER) (test code = 379) 4.2 meq/L 3.5-5.1 CHLORIDE (BEAKER) (test code = 382) 103 meq/L 98-107 CO2 (BEAKER) (test code = 355) 28 meq/L 22-29 BLOOD UREA NITROGEN (BEAKER) (test code = 354) 93 mg/dL 7-21 H CREATININE (BEAKER) (test code = 358) 2.53 mg/dL 0.57-1.25 H GLUCOSE RANDOM (BEAKER) (test code = 652) 199 mg/dL 70-105 H CALCIUM (BEAKER) (test code = 697) 9.1 mg/dL 8.4-10.2 EGFR (BEAKER) (test code = 1092) 29 mL/min/1.73 sq m ESTIMATED GFR IS NOT ACCURATE CREATININE CLEARANCE IN PREDICTING GLOMERULAR FILTRATION RATE. ESTIMATED GFR IS NOT APPLICABLE FOR DIALYSIS PATIENTS. Specimen markedly [id number] 14:47:00* Test Item Value Reference Range Interpretation Comments T4 TOTAL (BEAKER) (test code = 895) 8.1 ug/dL 4.9-11.7 CRYPTOCOCCAL [id number] 14:31:00* Test Item Value Reference Range Interpretation Comments CRYPTOCOCCAL ANTIGEN, SERUM (BEAKER) (test code = 1828) Nega tive Negative, Interference [id number] 14:20:00* Test Item Value Reference Range Interpretation Comments FERRITIN (BEAKER) (test code = 361) 2332 ng/mL 5-275 H LIPID [id number] 14:07:00* Test Item Value Reference Range Interpretation Comments TRIGLYCERIDES (BEAKER) (test code = 540) 364 mg/dL CHOLESTEROL (BEAKER) (test code = 631) 120 mg/dL HDL CHOLESTEROL (BEAKER) (test code = 976) 6 mg/dL LDL CHOLESTEROL CALCULATED (BEAKER) (test code = 633) 41 mg/dL Unable to calculate Triglyceride Reference Range: Low Risk <150 Borderline 150-199 High Risk 200-499 Very High Risk >=500Cholesterol Reference Range: Low Risk <200 Borderline 200-239 High Risk >240HDL Cholesterol Reference Range: Low Risk >=60 High Risk <40LDL Cholesterol Reference Range: Optimal <100 Near Optimal 100-129 Borderline 130-159 High 160-189 Very High >=190 Specimen markedly [id number] 13:01:00* Test Item Value Reference Range Interpretation Comments PROSTATE SPECIFIC ANTIGEN (BEAKER) (test code = 844) 0.5 ng/mL 0 .0-4.0 HIV-1 ANTIGEN WITH HIV-1/2 [id number] 13:01:00* Test Item Value Reference Range Interpretation Comments HIV-1 ANTIGEN WITH HIV 1\\T\\2 ANTIBODY (2) (BEAKER) (te st code = 2586) Nonreactive Nonreactive CARCINOEMBRYONIC ANTIGEN (CEA)2018-06-18 13:01:00* Test Item Value Reference Range Interpretation Comments CARCINOEMBRYONIC ANTIGEN (BEAKER) (test code = 685) 16.6 ng/mL 0. 0-5.0 H VITAMIN D, [id number] 13:01:00* Test Item Value Reference Range Interpretation Comments VITAMIN D 25-OH (BEAKER) (test code = 2764) 14.7 ng/mL 6.6-49.9 Effective 12/06/2016: Reference Range ChangeNew: 6.6-49.9 ng/mL Previous: 13.0 -47.8 ng/mLRecommended Vitamin D Target Range: 30.0-40.0 ng/mLPOCT-GLUCOSE METER 2018-06-18 12:53:00* Test Item Value Reference Range Interpretation Comments POC-GLUCOSE METER (BEAKER) (test code = 1538) 239 mg/dL 70-110 H TESTED AT [address] [address] [id number] 12:43:00* Test Item Value Reference Range Interpretation Comments TRANSFERRIN (BEAKER) (test code = 541) 112 mg/dL 174-382 L Specimen markedly ictericURIC [id number] 12:42:00* Test Item Value Reference Range Interpretation Comments URIC ACID (BEAKER) (test code = 773) 15.6 mg/dL 2.6-7.2 H Specimen markedly ictericGAMMA GLUTAMYL TRANSFERASE (GGT)2018-06-18 12:42:00* Test Item Value Reference Range Interpretation Comments GAMMA GLUTAMYL TRANSFERASE (BEAKER) (test code = 364) 125 U/L 9-64 H Specimen markedly [id number] 12:40:00* Test Item Value Reference Range Interpretation Comments ETHANOL (BEAKER) (test code = 400) < mg/dL <=10 [id number] 12:35:00* Test Item Value Reference Range Interpretation Comments FIBRINOGEN LEVEL (BEAKER) (test code = 658) 811 mg/dl 225-434 H BLOOD [id number] 11:56:00* Test Item Value Reference Range Interpretation Comments CULTURE (BEAKER) (test code = 1095) No growth in 5 days BLOOD [id number] 11:56:00* Test Item Value Reference Range Interpretation Comments CULTURE (BEAKER) (test code = 1095) No growth in 5 days CALCIUM, [id number] 11:40:00* Test Item Value Reference Range Interpretation Comments CALCIUM IONIZED (BEAKER) (test code = 698) 1.12 mmol/L 1.12-1.27 PH, BLOOD (BEAKER) (test code = 1810) 7.49 CBC W/PLT COUNT & AUTO [id number] 08:56:00* Test Item Value Reference Range Interpretation Comments WHITE BLOOD CELL COUNT (BEAKER) (test code = 775) 27.4 K/ L 3.5- 10.5 H RED BLOOD CELL COUNT (BEAKER) (test code = 761) 2.25 M/ L 4.63-6 .08 L HEMOGLOBIN (BEAKER) (test code = 410) 7.7 GM/DL 13.7-17.5 L HEMATOCRIT (BEAKER) (test code = 411) 24.0 % 40.1-51.0 L MEAN CORPUSCULAR VOLUME (BEAKER) (test code = 753) 106.7 fL 79. 0-92.2 H MEAN CORPUSCULAR HEMOGLOBIN (BEAKER) (test code = 751) 34.2 pg 25.7-32.2 H MEAN CORPUSCULAR HEMOGLOBIN CONC (BEAKER) (test code = 752) 32.1 GM/DL 32.3-36.5 L RED CELL DISTRIBUTION WIDTH (BEAKER) (test code = 412) 21.2 % 11.6-14.4 H PLATELET COUNT (BEAKER) (test code = 756) 273 K/CU MM 150-450 MEAN PLATELET VOLUME (BEAKER) (test code = 754) 11.9 fL 9.4-12 .4 NUCLEATED RED BLOOD CELLS (BEAKER) (test code = 413) 0 /100 WBC 0 -0 (CELLAVISION MANUAL DIFF)2018-06-18 08:56:00* Test Item Value Reference Range Interpretation Comments NEUTROPHILS - REL (CELLAVISION)(BEAKER) (test code = 2816) 85 % LYMPHOCYTES - REL (CELLAVISION)(BEAKER) (test code = 2817) 2 % MONOCYTES - REL (CELLAVISION)(BEAKER) (test code = 2818) 2 % EOSINOPHILS - REL (CELLAVISION)(BEAKER) (test code = 2819) 9 % METAMYELOCYTES - REL (CELLAVISION)(BEAKER) (test code = 2821) 2 % 0-0 H NEUTROPHILS - ABS (CELLAVISION)(BEAKER) (test code = 2830) 23.29 K/ul 1.78-5.38 H LYMPHOCYTES - ABS (CELLAVISION)(BEAKER) (test code = 2831) 0.55 K/ul 1.32-3.57 L MONOCYTES - ABS (CELLAVISION)(BEAKER) (test code = 2832) 0.55 K/uL 0.30-0.82 EOSINOPHILS - ABS (CELLAVISION)(BEAKER) (test code = 2834) 2.47 K/uL 0.04-0.54 H METAMYELOCYTES - ABS (CELLAVISION)(BEAKER) (test code = 2836 ) 0.55 K/uL 0.00-0.00 H TOTAL COUNTED (BEAKER) (test code = 1351) 100 WBC MORPHOLOGY (BEAKER) (test code = 487) Normal LARGE PLT(BEAKER) (test code = 2156) Present POLYCHROMATOPHILLIC RBCS(BEAKER) (test code = 478) 2+ moderate ANISOCYTOSIS (BEAKER) (test code = 961) 3+ many MICROCYTES (BEAKER) (test code = 965) 2+ moderate MACROCYTES (BEAKER) (test code = 964) 2+ moderate POIKILOCYTES (BEAKER) (test code = 966) 2+ moderate SCHISTOCYTES (BEAKER) (test code = 765) 1+ few SPHEROCYTES (BEAKER) (test code = 768) 1+ few ELLIPTOCYTES (BEAKER) (test code = 962) 1+ few STOMATOCYTES (BEAKER) (test code = 479) 1+ few ARTIFACT (CELLAVISION)(BEAKER) (test code = 3432) Present HELMET CELLS (CELLAVISION)(BEAKER) (test code = 3434) 1+ few PLATELET CONCENTRATION (CELLAVISION)(BEAKER) (test code = 3438) Cheryl quate Received comment: User comments: Slide comments: WBC: SEGMENTED WITH TOXIG GRANU LATION PRESENT [id number] 08:54:00* Test Item Value Reference Range Interpretation Comments MAGNESIUM (BEAKER) (test code = 627) 2.3 mg/dL 1.6-2.6 BASIC METABOLIC [id number] 08:54:00* Test Item Value Reference Range Interpretation Comments SODIUM (BEAKER) (test code = 381) 142 meq/L 136-145 POTASSIUM (BEAKER) (test code = 379) 4.4 meq/L 3.5-5.1 CHLORIDE (BEAKER) (test code = 382) 103 meq/L 98-107 CO2 (BEAKER) (test code = 355) 29 meq/L 22-29 BLOOD UREA NITROGEN (BEAKER) (test code = 354) 90 mg/dL 7-21 H CREATININE (BEAKER) (test code = 358) 2.38 mg/dL 0.57-1.25 H GLUCOSE RANDOM (BEAKER) (test code = 652) 250 mg/dL 70-105 H CALCIUM (BEAKER) (test code = 697) 9.2 mg/dL 8.4-10.2 EGFR (BEAKER) (test code = 1092) 31 mL/min/1.73 sq m ESTIMATED GFR IS NOT ACCURATE CREATININE CLEARANCE IN PREDICTING GLOMERULAR FILTRATION RATE. ESTIMATED GFR IS NOT APPLICABLE FOR DIALYSIS PATIENTS. Specimen markedly ictericPOCT-GLUCOSE [id number] 08:29:00* Test Item Value Reference Range Interpretation Comments POC-GLUCOSE METER (BEAKER) (test code = 1538) 223 mg/dL 70-110 H TESTED AT [facility] [address] [facility] [address] RAD, CHEST, 1 VIEW, NON [id number] 04:54:00Reason for exam:->Pulmonary edema evaluationShould this be performed at the bedside?->YesFINAL REPORT Chest one view. Clinical history: Pulmonary edema evaluation Comparison: Chest radiograph 06/17/2018 Technique: A single frontal view of the chest was obtained. Findings:There is a tracheostomy tube in satisfactory position. A feeding tube projects below the diaphragm. There has been interval removal of nasogastric tube. There is a left IJ central venous catheter with tip in the SVC.The cardiomediastinal contours are stable. There are diffuse bilateral alveolar and interstitial opacities, mildly decreased. There is no pleural effusion or pneumothorax. Signed: Nicolás Ceballoseport Verified D ate/Time: 06/18/2018 04:54:27 Reading Location: [facility] B1 C013Y CT Body Reading Ro om D GAS, [id number] 04:39:00* Test Item Value Reference Range Interpretation Comments PH ARTERIAL (BEAKER) (test code = 383) 7.51 7.35-7.45 H PCO2 ARTERIAL (BEAKER) (test code = 384) 37 mmHg 35-45 PO2 ARTERIAL (BEAKER) (test code = 385) 73 mmHg 80-90 L O2 SATURATION ARTERIAL (BEAKER) (test code = 386) 95.9 % 96.0 -97.0 L HCO3 ARTERIAL (BEAKER) (test code = 388) 29 mmol/L 21-29 BASE EXCESS ARTERIAL (BEAKER) (test code = 387) 5.3 mmol/L -2.0-3 .0 H PATIENT TEMPERATURE (BEAKER) (test code = 1818) 37.0 C FIO2 (BEAKER) (test code = 1819) 40.0 % HEPATIC FUNCTION [id number] 04:35:00* Test Item Value Reference Range Interpretation Comments TOTAL PROTEIN (BEAKER) (test code = 770) 6.5 gm/dL 6.0-8.3 ALBUMIN (BEAKER) (test code = 1145) 2.7 g/dL 3.5-5.0 L BILIRUBIN TOTAL (BEAKER) (test code = 377) 26.5 mg/dL 0.2-1.2 H BILIRUBIN DIRECT (BEAKER) (test code = 706) 21.7 mg/dL 0.1-0.5 H ALKALINE PHOSPHATASE (BEAKER) (test code = 346) 164 U/L 40-150 H AST (SGOT) (BEAKER) (test code = 353) 269 U/L 5-34 H ALT (SGPT) (BEAKER) (test code = 347) 138 U/L 6-55 H Specimen markedly [id number] 04:34:00* Test Item Value Reference Range Interpretation Comments MAGNESIUM (BEAKER) (test code = 627) 2.5 mg/dL 1.6-2.6 BASIC METABOLIC [id number] 04:34:00* Test Item Value Reference Range Interpretation Comments SODIUM (BEAKER) (test code = 381) 143 meq/L 136-145 POTASSIUM (BEAKER) (test code = 379) 3.8 meq/L 3.5-5.1 CHLORIDE (BEAKER) (test code = 382) 102 meq/L 98-107 CO2 (BEAKER) (test code = 355) 29 meq/L 22-29 BLOOD UREA NITROGEN (BEAKER) (test code = 354) 88 mg/dL 7-21 H CREATININE (BEAKER) (test code = 358) 2.44 mg/dL 0.57-1.25 H GLUCOSE RANDOM (BEAKER) (test code = 652) 231 mg/dL 70-105 H CALCIUM (BEAKER) (test code = 697) 9.3 mg/dL 8.4-10.2 EGFR (BEAKER) (test code = 1092) 30 mL/min/1.73 sq m ESTIMATED GFR IS NOT ACCURATE CREATININE CLEARANCE IN PREDICTING GLOMERULAR FILTRATION RATE. ESTIMATED GFR IS NOT APPLICABLE FOR DIALYSIS PATIENTS. Specimen markedly ictericCREATINE KINASE (CK)2018-06-18 04:34:00* Test Item Value Reference Range Interpretation Comments CREATINE KINASE TOTAL (BEAKER) (test code = 380) 50 U/L 29-20 0 [id number] 04:23:00* Test Item Value Reference Range Interpretation Comments PARTIAL THROMBOPLASTIN TIME (BEAKER) (test code = 760) 49.4 seconds 22.5-36.0 H PROTHROMBIN [id number] 04:22:00* Test Item Value Reference Range Interpretation Comments PROTIME (BEAKER) (test code = 759) 17.1 seconds 11.7-14.7 H INR (BEAKER) (test code = 370) 1.4 <=5.9 RECOMMENDED COUMADIN/WARFARIN INR THERAPY RANGESSTANDARD DOSE: 2.0 - 3.0 Inclu herb: PROPHYLAXIS for venous thrombosis, systemic embolization; TREATMENT for giulia ous thrombosis and/or pulmonary embolus.HIGH RISK: Target INR is 2.5-3.5 for pat ients with mechanical heart valves.LACTIC ACID, [id number] 04:17:00* Test Item Value Reference Range Interpretation Comments LACTATE BLOOD ARTERIAL (2) (BEAKER) (test code = 2874) 1.3 mmol/L 0.5-2.2 Specimen markedly [id number] 00:59:00* Test Item Value Reference Range Interpretation Comments MAGNESIUM (BEAKER) (test code = 627) 2.1 mg/dL 1.6-2.6 BASIC METABOLIC [id number] 00:59:00* Test Item Value Reference Range Interpretation Comments SODIUM (BEAKER) (test code = 381) 143 meq/L 136-145 POTASSIUM (BEAKER) (test code = 379) 3.7 meq/L 3.5-5.1 CHLORIDE (BEAKER) (test code = 382) 101 meq/L 98-107 CO2 (BEAKER) (test code = 355) 27 meq/L 22-29 BLOOD UREA NITROGEN (BEAKER) (test code = 354) 87 mg/dL 7-21 H CREATININE (BEAKER) (test code = 358) 2.23 mg/dL 0.57-1.25 H GLUCOSE RANDOM (BEAKER) (test code = 652) 242 mg/dL 70-105 H CALCIUM (BEAKER) (test code = 697) 9.0 mg/dL 8.4-10.2 EGFR (BEAKER) (test code = 1092) 33 mL/min/1.73 sq m ESTIMATED GFR IS NOT ACCURATE CREATININE CLEARANCE IN PREDICTING GLOMERULAR FILTRATION RATE. ESTIMATED GFR IS NOT APPLICABLE FOR DIALYSIS PATIENTS. Specimen markedly ictericPOCT-GLUCOSE [id number] 00:20:00* Test Item Value Reference Range Interpretation Comments POC-GLUCOSE METER (BEAKER) (test code = 1538) 155 mg/dL 70-110 H TESTED AT [facility] [address] [facility] [address] POCT-GLUCOSE [id number] 18:09:00* Test Item Value Reference Range Interpretation Comments POC-GLUCOSE METER (BEAKER) (test code = 1538) 187 mg/dL 70-110 H TESTED AT [facility] [address] [facility] [address] BASIC METABOLIC [id number] 16:09:00* Test Item Value Reference Range Interpretation Comments SODIUM (BEAKER) (test code = 381) 145 meq/L 136-145 POTASSIUM (BEAKER) (test code = 379) 3.7 meq/L 3.5-5.1 CHLORIDE (BEAKER) (test code = 382) 104 meq/L 98-107 CO2 (BEAKER) (test code = 355) 29 meq/L 22-29 BLOOD UREA NITROGEN (BEAKER) (test code = 354) 88 mg/dL 7-21 H CREATININE (BEAKER) (test code = 358) 2.38 mg/dL 0.57-1.25 H GLUCOSE RANDOM (BEAKER) (test code = 652) 186 mg/dL 70-105 H CALCIUM (BEAKER) (test code = 697) 9.7 mg/dL 8.4-10.2 EGFR (BEAKER) (test code = 1092) 31 mL/min/1.73 sq m ESTIMATED GFR IS NOT ACCURATE CREATININE CLEARANCE IN PREDICTING GLOMERULAR FILTRATION RATE. ESTIMATED GFR IS NOT APPLICABLE FOR DIALYSIS PATIENTS. Specimen markedly ictericPOCT-GLUCOSE [id number] 12:03:00* Test Item Value Reference Range Interpretation Comments POC-GLUCOSE METER (BEAKER) (test code = 1538) 212 mg/dL 70-110 H TESTED AT [facility] [address] [facility] [address] [id number] 11:52:00* Test Item Value Reference Range Interpretation Comments MAGNESIUM (BEAKER) (test code = 627) 2.0 mg/dL 1.6-2.6 BASIC METABOLIC [id number] 11:52:00* Test Item Value Reference Range Interpretation Comments SODIUM (BEAKER) (test code = 381) 144 meq/L 136-145 POTASSIUM (BEAKER) (test code = 379) 3.5 meq/L 3.5-5.1 CHLORIDE (BEAKER) (test code = 382) 102 meq/L 98-107 CO2 (BEAKER) (test code = 355) 27 meq/L 22-29 BLOOD UREA NITROGEN (BEAKER) (test code = 354) 87 mg/dL 7-21 H CREATININE (BEAKER) (test code = 358) 2.33 mg/dL 0.57-1.25 H GLUCOSE RANDOM (BEAKER) (test code = 652) 209 mg/dL 70-105 H CALCIUM (BEAKER) (test code = 697) 9.3 mg/dL 8.4-10.2 EGFR (BEAKER) (test code = 1092) 31 mL/min/1.73 sq m ESTIMATED GFR IS NOT ACCURATE CREATININE CLEARANCE IN PREDICTING GLOMERULAR FILTRATION RATE. ESTIMATED GFR IS NOT APPLICABLE FOR DIALYSIS PATIENTS. Specimen markedly ictericPERIPHERAL BLOOD SMEAR - PATHOLOGIST [id number] 08:37:00* Test Item Value Reference Range Interpretation Comments PERIPHERAL SMR REVIEW (BEAKER) (test code = 2640) Left shifted granulocytes with toxic changes. No circulating blasts. No significantly increased schistocytes. [id number] (BEAKER) (test code = 2849) Raul Arenas M.D.(electronic signature) RAD, CHEST, 1 VIEW, NON [id number] 08:15:00Reason for exam:->Pulmonary edema evaluationShould this be performed at the bedside?->YesFINAL REPORT Chest, one view. HISTORY: Pulmonary edema evaluation COMPARISON: Radiograph from 06/16/2018 IMPRESSION: Unchanged positioning of support lines and tubes. The interstitial edema is unchanged. No pleural effusion or pneumothorax. The cardiac silhouette is unchanged. No acute bony abnormality. Signed: Kyle Rae MDReport Verified Date/Time: 06/17/2018 08:15:08 Reading Location: [facility] Radiology Reading Room LT BLOOD, [id number] 07:04:00* Test Item Value Reference Range Interpretation Comments FECAL OCCULT BLOOD (BEAKER) (test code = 618) Negative Negative POCT-GLUCOSE [id number] 06:28:00* Test Item Value Reference Range Interpretation Comments POC-GLUCOSE METER (BEAKER) (test code = 1538) 209 mg/dL 70-110 H TESTED AT [facility] [address] [facility] [address] [id number] 05:05:00* Test Item Value Reference Range Interpretation Comments PARTIAL THROMBOPLASTIN TIME (BEAKER) (test code = 760) 51.6 seconds 22.5-36.0 H PROTHROMBIN TIME/[id number] 05:04:00* Test Item Value Reference Range Interpretation Comments PROTIME (BEAKER) (test code = 759) 18.1 seconds 11.7-14.7 H INR (BEAKER) (test code = 370) 1.5 <=5.9 RECOMMENDED COUMADIN/WARFARIN INR THERAPY RANGESSTANDARD DOSE: 2.0 - 3.0 Inclu herb: PROPHYLAXIS for venous thrombosis, systemic embolization; TREATMENT for giulia ous thrombosis and/or pulmonary embolus.HIGH RISK: Target INR is 2.5-3.5 for pat ients with mechanical heart valves.HEPATIC FUNCTION [id number] 04:18:00* Test Item Value Reference Range Interpretation Comments TOTAL PROTEIN (BEAKER) (test code = 770) 6.5 gm/dL 6.0-8.3 ALBUMIN (BEAKER) (test code = 1145) 2.7 g/dL 3.5-5.0 L BILIRUBIN TOTAL (BEAKER) (test code = 377) 23.8 mg/dL 0.2-1.2 H BILIRUBIN DIRECT (BEAKER) (test code = 706) 19.5 mg/dL 0.1-0.5 H ALKALINE PHOSPHATASE (BEAKER) (test code = 346) 137 U/L 40-150 AST (SGOT) (BEAKER) (test code = 353) 294 U/L 5-34 H ALT (SGPT) (BEAKER) (test code = 347) 146 U/L 6-55 H Specimen markedly [id number] 03:59:00* Test Item Value Reference Range Interpretation Comments MAGNESIUM (BEAKER) (test code = 627) 2.4 mg/dL 1.6-2.6 BASIC METABOLIC [id number] 03:59:00* Test Item Value Reference Range Interpretation Comments SODIUM (BEAKER) (test code = 381) 145 meq/L 136-145 POTASSIUM (BEAKER) (test code = 379) 3.5 meq/L 3.5-5.1 CHLORIDE (BEAKER) (test code = 382) 104 meq/L 98-107 CO2 (BEAKER) (test code = 355) 30 meq/L 22-29 H BLOOD UREA NITROGEN (BEAKER) (test code = 354) 87 mg/dL 7-21 H CREATININE (BEAKER) (test code = 358) 2.39 mg/dL 0.57-1.25 H GLUCOSE RANDOM (BEAKER) (test code = 652) 177 mg/dL 70-105 H CALCIUM (BEAKER) (test code = 697) 9.5 mg/dL 8.4-10.2 EGFR (BEAKER) (test code = 1092) 30 mL/min/1.73 sq m ESTIMATED GFR IS NOT ACCURATE CREATININE CLEARANCE IN PREDICTING GLOMERULAR FILTRATION RATE. ESTIMATED GFR IS NOT APPLICABLE FOR DIALYSIS PATIENTS. Specimen markedly [id number] 03:59:00* Test Item Value Reference Range Interpretation Comments AMYLASE (BEAKER) (test code = 349) 49 U/L 25-125 Specimen markedly [id number] 03:59:00* Test Item Value Reference Range Interpretation Comments LIPASE (BEAKER) (test code = 749) 186 U/L 8-78 H Specimen markedly ictericLACTIC ACID, [id number] 03:41:00* Test Item Value Reference Range Interpretation Comments LACTATE BLOOD ARTERIAL (2) (BEAKER) (test code = 2874) 1.5 mmol/L 0.5-2.2 Specimen markedly ictericCBC W/PLT COUNT & AUTO [id number] 03:38:00 * Test Item Value Reference Range Interpretation Comments WHITE BLOOD CELL COUNT (BEAKER) (test code = 775) 31.7 K/ L 3.5- 10.5 H RED BLOOD CELL COUNT (BEAKER) (test code = 761) 2.37 M/ L 4.63-6 .08 L HEMOGLOBIN (BEAKER) (test code = 410) 7.9 GM/DL 13.7-17.5 L HEMATOCRIT (BEAKER) (test code = 411) 25.2 % 40.1-51.0 L MEAN CORPUSCULAR VOLUME (BEAKER) (test code = 753) 106.3 fL 79. 0-92.2 H MEAN CORPUSCULAR HEMOGLOBIN (BEAKER) (test code = 751) 33.3 pg 25.7-32.2 H MEAN CORPUSCULAR HEMOGLOBIN CONC (BEAKER) (test code = 752) 31.3 GM/DL 32.3-36.5 L RED CELL DISTRIBUTION WIDTH (BEAKER) (test code = 412) 21.6 % 11.6-14.4 H PLATELET COUNT (BEAKER) (test code = 756) 280 K/CU MM 150-450 MEAN PLATELET VOLUME (BEAKER) (test code = 754) 12.0 fL 9.4-12 .4 NUCLEATED RED BLOOD CELLS (BEAKER) (test code = 413) 0 /100 WBC 0 -0 NEUTROPHILS RELATIVE PERCENT (BEAKER) (test code = 429) 81 % LYMPHOCYTES RELATIVE PERCENT (BEAKER) (test code = 430) 6 % MONOCYTES RELATIVE PERCENT (BEAKER) (test code = 431) 5 % EOSINOPHILS RELATIVE PERCENT (BEAKER) (test code = 432) 5 % BASOPHILS RELATIVE PERCENT (BEAKER) (test code = 437) 0 % NEUTROPHILS ABSOLUTE COUNT (BEAKER) (test code = 670) 25.65 K/ L 1.78-5.38 H LYMPHOCYTES ABSOLUTE COUNT (BEAKER) (test code = 414) 1.84 K/ L 1.32-3.57 MONOCYTES ABSOLUTE COUNT (BEAKER) (test code = 415) 1.43 K/ L 0. 30-0.82 H EOSINOPHILS ABSOLUTE COUNT (BEAKER) (test code = 416) 1.63 K/ L 0.04-0.54 H BASOPHILS ABSOLUTE COUNT (BEAKER) (test code = 417) 0.09 K/ L 0. 01-0.08 H IMMATURE GRANULOCYTES-RELATIVE PERCENT (BEAKER) (test code = 2801) 3 % 0-1 H BLOOD GAS, [id number] 03:30:00* Test Item Value Reference Range Interpretation Comments PH ARTERIAL (BEAKER) (test code = 383) 7.53 7.35-7.45 H PCO2 ARTERIAL (BEAKER) (test code = 384) 36 mmHg 35-45 PO2 ARTERIAL (BEAKER) (test code = 385) 71 mmHg 80-90 L O2 SATURATION ARTERIAL (BEAKER) (test code = 386) 95.6 % 96.0 -97.0 L HCO3 ARTERIAL (BEAKER) (test code = 388) 29 mmol/L 21-29 BASE EXCESS ARTERIAL (BEAKER) (test code = 387) 6.1 mmol/L -2.0-3 .0 H PATIENT TEMPERATURE (BEAKER) (test code = 1818) 37.3 C FIO2 (BEAKER) (test code = 1819) 40.0 % CALCIUM, [id number] 03:28:00* Test Item Value Reference Range Interpretation Comments CALCIUM IONIZED (BEAKER) (test code = 698) 1.14 mmol/L 1.12-1.27 PH, BLOOD (BEAKER) (test code = 1810) 7.53 Check serum Ionized Calcium level after 4 hours after IV Calcium replacement. POCT-GLUCOSE [id number] 00:11:00* Test Item Value Reference Range Interpretation Comments POC-GLUCOSE METER (BEAKER) (test code = 1538) 233 mg/dL 70-110 H TESTED AT [facility] [address] [facility] [address] HEMOGLOBIN AND [id number] 23:41:00* Test Item Value Reference Range Interpretation Comments HEMOGLOBIN (BEAKER) (test code = 410) 8.3 GM/DL 13.7-17.5 L HEMATOCRIT (BEAKER) (test code = 411) 26.1 % 40.1-51.0 L [id number] 20:50:00* Test Item Value Reference Range Interpretation Comments MAGNESIUM (BEAKER) (test code = 627) 2.5 mg/dL 1.6-2.6 BASIC METABOLIC [id number] 20:50:00* Test Item Value Reference Range Interpretation Comments SODIUM (BEAKER) (test code = 381) 145 meq/L 136-145 POTASSIUM (BEAKER) (test code = 379) 4.0 meq/L 3.5-5.1 CHLORIDE (BEAKER) (test code = 382) 104 meq/L 98-107 CO2 (BEAKER) (test code = 355) 26 meq/L 22-29 BLOOD UREA NITROGEN (BEAKER) (test code = 354) 88 mg/dL 7-21 H CREATININE (BEAKER) (test code = 358) 2.27 mg/dL 0.57-1.25 H GLUCOSE RANDOM (BEAKER) (test code = 652) 214 mg/dL 70-105 H CALCIUM (BEAKER) (test code = 697) 9.5 mg/dL 8.4-10.2 EGFR (BEAKER) (test code = 1092) 32 mL/min/1.73 sq m ESTIMATED GFR IS NOT ACCURATE CREATININE CLEARANCE IN PREDICTING GLOMERULAR FILTRATION RATE. ESTIMATED GFR IS NOT APPLICABLE FOR DIALYSIS PATIENTS. Specimen markedly ictericCALCIUM, [id number] 20:26:00* Test Item Value Reference Range Interpretation Comments CALCIUM IONIZED (BEAKER) (test code = 698) 1.11 mmol/L 1.12-1.27 L PH, BLOOD (BEAKER) (test code = 1810) 7.53 Check serum Ionized Calcium level after 4 hours after IV Calcium replacement. POCT-GLUCOSE [id number] 20:07:00* Test Item Value Reference Range Interpretation Comments POC-GLUCOSE METER (BEAKER) (test code = 1538) 203 mg/dL 70-110 H TESTED AT [facility] [address] [facility] [address] POCT-GLUCOSE [id number] 16:57:00* Test Item Value Reference Range Interpretation Comments POC-GLUCOSE METER (BEAKER) (test code = 1538) 130 mg/dL 70-110 H TESTED AT [address] [address] VITAMIN B12 AND [id number] 16:12:00* Test Item Value Reference Range Interpretation Comments VITAMIN B12 (BEAKER) (test code = 774) 1499 pg/mL 213-816 H FOLATE (BEAKER) (test code = 362) 14.9 ng/mL >=7.0 POCT-GLUCOSE [id number] 15:35:00* Test Item Value Reference Range Interpretation Comments POC-GLUCOSE METER (BEAKER) (test code = 1538) 101 mg/dL 70-110 TESTED AT [place] [id number] [facility] [address] (MANUAL DIFFERENTIAL)2018-06-16 14:42:00* Test Item Value Reference Range Interpretation Comments NEUTROPHILS - REL (DIFF) (BEAKER) (test code = 1359) 81 % LYMPHOCYTES - REL (DIFF) (BEAKER) (test code = 1360) 8 % MONOCYTES - REL (DIFF) (BEAKER) (test code = 1361) 4 % EOSINOPHILS - REL (DIFF) (BEAKER) (test code = 1362) 6 % BASOPHILS - REL (DIFF) (BEAKER) (test code = 1363) 0 % MYELOCYTES-REL (DIFF) (BEAKER) (test code = 1594) 1 % 0-0 H NEUTROPHILS - ABS (DIFF) (BEAKER) (test code = 1365) 27.62 K/ L 1 .80-8.00 H LYMPHOCYTES - ABS (DIFF) (BEAKER) (test code = 1366) 2.73 K/ L 1 .48-4.50 MONOCYTES - ABS (DIFF) (BEAKER) (test code = 1367) 1.36 K/ L 0.0 0-1.30 H EOSINOPHILS - ABS (DIFF) (BEAKER) (test code = 1368) 2.05 K/ L 0 .00-0.50 H BASOPHILS - ABS (DIFF) (BEAKER) (test code = 1369) 0.00 K/ L 0.0 0-0.20 MYELOCYTES-ABS (DIFF) (BEAKER) (test code = 1593) 0.34 K/ L 0.00 -0.00 H TOTAL COUNTED (BEAKER) (test code = 1351) 100 WBC MORPHOLOGY (BEAKER) (test code = 487) Normal PLT MORPHOLOGY (BEAKER) (test code = 486) Normal ANISOCYTOSIS (BEAKER) (test code = 961) 1+ few POLYCHROMATOPHILLIC RBCS(BEAKER) (test code = 478) 1+ few [id number] 14:16:00* Test Item Value Reference Range Interpretation Comments HAPTOGLOBIN (BEAKER) (test code = 366) 250 mg/dL 14-258 [id number] 14:09:00* Test Item Value Reference Range Interpretation Comments MAGNESIUM (BEAKER) (test code = 627) 2.1 mg/dL 1.6-2.6 BASIC METABOLIC [id number] 14:09:00* Test Item Value Reference Range Interpretation Comments SODIUM (BEAKER) (test code = 381) 145 meq/L 136-145 POTASSIUM (BEAKER) (test code = 379) 3.6 meq/L 3.5-5.1 CHLORIDE (BEAKER) (test code = 382) 104 meq/L 98-107 CO2 (BEAKER) (test code = 355) 28 meq/L 22-29 BLOOD UREA NITROGEN (BEAKER) (test code = 354) 88 mg/dL 7-21 H CREATININE (BEAKER) (test code = 358) 2.36 mg/dL 0.57-1.25 H GLUCOSE RANDOM (BEAKER) (test code = 652) 108 mg/dL 70-105 H CALCIUM (BEAKER) (test code = 697) 9.4 mg/dL 8.4-10.2 EGFR (BEAKER) (test code = 1092) 31 mL/min/1.73 sq m ESTIMATED GFR IS NOT ACCURATE CREATININE CLEARANCE IN PREDICTING GLOMERULAR FILTRATION RATE. ESTIMATED GFR IS NOT APPLICABLE FOR DIALYSIS PATIENTS. Specimen markedly [id number] 14:09:00* Test Item Value Reference Range Interpretation Comments AMYLASE (BEAKER) (test code = 349) 55 U/L 25-125 Specimen markedly ictericLACTATE DEHYDROGENASE (LDH)2018-06-16 14:09:00* Test Item Value Reference Range Interpretation Comments LACTATE DEHYDROGENASE (BEAKER) (test code = 635) 388 U/L 125-2 20 H [id number] 14:09:00* Test Item Value Reference Range Interpretation Comments LIPASE (BEAKER) (test code = 749) 141 U/L 8-78 H Specimen markedly ictericIRON, TIBC, % SAT. (WITHOUT FERRITIN)2018-06-16 14:04:00* Test Item Value Reference Range Interpretation Comments IRON (BEAKER) (test code = 547) 37.0 ug/dL 40.0-160.0 L TOTAL IRON BINDING CAPACITY (BEAKER) (test code = 769) 125 ug/dL 250-450 L IRON % SATURATION (2) (BEAKER) (test code = 2590) 30 % 20-5 5 IRON, [id number] 14:04:00* Test Item Value Reference Range Interpretation Comments IRON (BEAKER) (test code = 547) 37.0 ug/dL 40.0-160.0 L LACTIC ACID, [id number] 14:02:00* Test Item Value Reference Range Interpretation Comments LACTATE BLOOD ARTERIAL (2) (BEAKER) (test code = 2874) 1.2 mmol/L 0.5-2.2 Specimen markedly ictericCBC (HEMOGRAM ONLY)2018-06-16 13:52:00* Test Item Value Reference Range Interpretation Comments WHITE BLOOD CELL COUNT (BEAKER) (test code = 775) 34.1 K/ L 3.5- 10.5 H RED BLOOD CELL COUNT (BEAKER) (test code = 761) 2.41 M/ L 4.63-6 .08 L HEMOGLOBIN (BEAKER) (test code = 410) 8.2 GM/DL 13.7-17.5 L HEMATOCRIT (BEAKER) (test code = 411) 25.3 % 40.1-51.0 L MEAN CORPUSCULAR VOLUME (BEAKER) (test code = 753) 105.0 fL 79. 0-92.2 H MEAN CORPUSCULAR HEMOGLOBIN (BEAKER) (test code = 751) 34.0 pg 25.7-32.2 H MEAN CORPUSCULAR HEMOGLOBIN CONC (BEAKER) (test code = 752) 32.4 GM/DL 32.3-36.5 RED CELL DISTRIBUTION WIDTH (BEAKER) (test code = 412) 21.5 % 11.6-14.4 H PLATELET COUNT (BEAKER) (test code = 756) 280 K/CU MM 150-450 MEAN PLATELET VOLUME (BEAKER) (test code = 754) 11.5 fL 9.4-12 .4 NUCLEATED RED BLOOD CELLS (BEAKER) (test code = 413) 0 /100 WBC 0 -0 BLOOD GAS, [id number] 13:45:00* Test Item Value Reference Range Interpretation Comments PH ARTERIAL (BEAKER) (test code = 383) 7.50 7.35-7.45 H PCO2 ARTERIAL (BEAKER) (test code = 384) 39 mmHg 35-45 PO2 ARTERIAL (BEAKER) (test code = 385) 71 mmHg 80-90 L O2 SATURATION ARTERIAL (BEAKER) (test code = 386) 94.9 % 96.0 -97.0 L HCO3 ARTERIAL (BEAKER) (test code = 388) 29 mmol/L 21-29 BASE EXCESS ARTERIAL (BEAKER) (test code = 387) 6.0 mmol/L -2.0-3 .0 H PATIENT TEMPERATURE (BEAKER) (test code = 1818) 38.0 C FIO2 (BEAKER) (test code = 1819) 100.0 % POCT-GLUCOSE [id number] 13:23:00* Test Item Value Reference Range Interpretation Comments POC-GLUCOSE METER (BEAKER) (test code = 1538) 121 mg/dL 70-110 H TESTED AT [facility] [address] [facility] [address] POCT-GLUCOSE [id number] 11:05:00* Test Item Value Reference Range Interpretation Comments POC-GLUCOSE METER (BEAKER) (test code = 1538) 145 mg/dL 70-110 H TESTED AT [facility] [address] [facility] [address] POCT-GLUCOSE [id number] 08:56:00* Test Item Value Reference Range Interpretation Comments POC-GLUCOSE METER (BEAKER) (test code = 1538) 147 mg/dL 70-110 H TESTED AT [facility] [address] [facility] [address] CBC W/PLT COUNT & AUTO [id number] 08:10:00* Test Item Value Reference Range Interpretation Comments WHITE BLOOD CELL COUNT (BEAKER) (test code = 775) 35.7 K/ L 3.5- 10.5 H RED BLOOD CELL COUNT (BEAKER) (test code = 761) 2.40 M/ L 4.63-6 .08 L HEMOGLOBIN (BEAKER) (test code = 410) 8.1 GM/DL 13.7-17.5 L HEMATOCRIT (BEAKER) (test code = 411) 25.3 % 40.1-51.0 L MEAN CORPUSCULAR VOLUME (BEAKER) (test code = 753) 105.4 fL 79. 0-92.2 H Discordant MCV results compared to previous results; clinical correlation required. MEAN CORPUSCULAR HEMOGLOBIN (BEAKER) (test code = 751) 33.8 pg 25.7-32.2 H MEAN CORPUSCULAR HEMOGLOBIN CONC (BEAKER) (test code = 752) 32.0 GM/DL 32.3-36.5 L RED CELL DISTRIBUTION WIDTH (BEAKER) (test code = 412) 21.8 % 11.6-14.4 H PLATELET COUNT (BEAKER) (test code = 756) 290 K/CU MM 150-450 MEAN PLATELET VOLUME (BEAKER) (test code = 754) 11.8 fL 9.4-12 .4 NUCLEATED RED BLOOD CELLS (BEAKER) (test code = 413) 0 /100 WBC 0 -0 (MANUAL DIFFERENTIAL)2018-06-16 08:10:00* Test Item Value Reference Range Interpretation Comments NEUTROPHILS - REL (DIFF) (BEAKER) (test code = 1359) 89 % LYMPHOCYTES - REL (DIFF) (BEAKER) (test code = 1360) 6 % MONOCYTES - REL (DIFF) (BEAKER) (test code = 1361) 0 % EOSINOPHILS - REL (DIFF) (BEAKER) (test code = 1362) 2 % BASOPHILS - REL (DIFF) (BEAKER) (test code = 1363) 2 % MYELOCYTES-REL (DIFF) (BEAKER) (test code = 1594) 1 % 0-0 H NEUTROPHILS - ABS (DIFF) (BEAKER) (test code = 1365) 31.77 K/ L 1 .80-8.00 H LYMPHOCYTES - ABS (DIFF) (BEAKER) (test code = 1366) 2.14 K/ L 1 .48-4.50 MONOCYTES - ABS (DIFF) (BEAKER) (test code = 1367) 0.00 K/ L 0.0 0-1.30 EOSINOPHILS - ABS (DIFF) (BEAKER) (test code = 1368) 0.71 K/ L 0 .00-0.50 H BASOPHILS - ABS (DIFF) (BEAKER) (test code = 1369) 0.71 K/ L 0.0 0-0.20 H MYELOCYTES-ABS (DIFF) (BEAKER) (test code = 1593) 0.36 K/ L 0.00 -0.00 H TOTAL COUNTED (BEAKER) (test code = 1351) 100 WBC MORPHOLOGY (BEAKER) (test code = 487) Normal PLT MORPHOLOGY (BEAKER) (test code = 486) Normal ANISOCYTOSIS (BEAKER) (test code = 961) 2+ moderate POLYCHROMATOPHILLIC RBCS(BEAKER) (test code = 478) 1+ few RAD, CHEST, 1 VIEW, NON [id number] 07:59:00Reason for exam:->Pulmonary edema evaluationShould this be performed at the bedside?->YesFINAL REPORT INDICATION: Pulmonary edema evaluation COMPARISON:June 15. TECHNIQUE: Chest radiograph, single view, portable technique. FINDINGS / IMPRESSION: Prominent heart shadow and diffuse interstitial pulmonary edema are again demonstrated. Support lines and tubes unchanged and appear satisfactory. No pneumothorax. Signed: Natalio Santillan MDReport Verified Date/Time: 06/16/2018 07:59:49 Reading Location: [address] Consult Reading Room [facility] signed by: NATALIO SANTILLAN M.D. on 06/16/2018 07:59 AM POCT- GLUCOSE [id number] 07:05:00* Test Item Value Reference Range Interpretation Comments POC-GLUCOSE METER (BEAKER) (test code = 1538) 114 mg/dL 70-110 H TESTED AT [facility] [address] [facility] [address] POCT-GLUCOSE [id number] 05:09:00* Test Item Value Reference Range Interpretation Comments POC-GLUCOSE METER (BEAKER) (test code = 1538) 120 mg/dL 70-110 H TESTED AT [facility] [address] [facility] [address] HEPATIC FUNCTION [id number] 04:53:00* Test Item Value Reference Range Interpretation Comments TOTAL PROTEIN (BEAKER) (test code = 770) 6.6 gm/dL 6.0-8.3 ALBUMIN (BEAKER) (test code = 1145) 2.7 g/dL 3.5-5.0 L BILIRUBIN TOTAL (BEAKER) (test code = 377) 20.2 mg/dL 0.2-1.2 H BILIRUBIN DIRECT (BEAKER) (test code = 706) 14.9 mg/dL 0.1-0.5 H ALKALINE PHOSPHATASE (BEAKER) (test code = 346) 124 U/L 40-150 AST (SGOT) (BEAKER) (test code = 353) 322 U/L 5-34 H ALT (SGPT) (BEAKER) (test code = 347) 138 U/L 6-55 H Specimen markedly [id number] 04:30:00* Test Item Value Reference Range Interpretation Comments MAGNESIUM (BEAKER) (test code = 627) 2.3 mg/dL 1.6-2.6 BASIC METABOLIC [id number] 04:30:00* Test Item Value Reference Range Interpretation Comments SODIUM (BEAKER) (test code = 381) 144 meq/L 136-145 POTASSIUM (BEAKER) (test code = 379) 3.8 meq/L 3.5-5.1 CHLORIDE (BEAKER) (test code = 382) 105 meq/L 98-107 CO2 (BEAKER) (test code = 355) 26 meq/L 22-29 BLOOD UREA NITROGEN (BEAKER) (test code = 354) 89 mg/dL 7-21 H CREATININE (BEAKER) (test code = 358) 2.35 mg/dL 0.57-1.25 H GLUCOSE RANDOM (BEAKER) (test code = 652) 121 mg/dL 70-105 H CALCIUM (BEAKER) (test code = 697) 9.2 mg/dL 8.4-10.2 EGFR (BEAKER) (test code = 1092) 31 mL/min/1.73 sq m ESTIMATED GFR IS NOT ACCURATE CREATININE CLEARANCE IN PREDICTING GLOMERULAR FILTRATION RATE. ESTIMATED GFR IS NOT APPLICABLE FOR DIALYSIS PATIENTS. Specimen markedly [id number] 04:14:00* Test Item Value Reference Range Interpretation Comments PARTIAL THROMBOPLASTIN TIME (BEAKER) (test code = 760) 48.2 seconds 22.5-36.0 H PROTHROMBIN [id number] 04:13:00* Test Item Value Reference Range Interpretation Comments PROTIME (BEAKER) (test code = 759) 17.7 seconds 11.7-14.7 H INR (BEAKER) (test code = 370) 1.5 <=5.9 RECOMMENDED COUMADIN/WARFARIN INR THERAPY RANGESSTANDARD DOSE: 2.0 - 3.0 Inclu herb: PROPHYLAXIS for venous thrombosis, systemic embolization; TREATMENT for giulia ous thrombosis and/or pulmonary embolus.HIGH RISK: Target INR is 2.5-3.5 for pat ients with mechanical heart valves.LACTIC ACID, [id number] 04:08:00* Test Item Value Reference Range Interpretation Comments LACTATE BLOOD ARTERIAL (2) (BEAKER) (test code = 2874) 0.9 mmol/L 0.5-2.2 Specimen markedly ictericBLOOD GAS, [id number] 03:51:00* Test Item Value Reference Range Interpretation Comments PH ARTERIAL (BEAKER) (test code = 383) 7.50 7.35-7.45 H PCO2 ARTERIAL (BEAKER) (test code = 384) 38 mmHg 35-45 PO2 ARTERIAL (BEAKER) (test code = 385) 72 mmHg 80-90 L O2 SATURATION ARTERIAL (BEAKER) (test code = 386) 94.9 % 96.0 -97.0 L HCO3 ARTERIAL (BEAKER) (test code = 388) 29 mmol/L 21-29 BASE EXCESS ARTERIAL (BEAKER) (test code = 387) 5.3 mmol/L -2.0-3 .0 H PATIENT TEMPERATURE (BEAKER) (test code = 1818) 38.2 C FIO2 (BEAKER) (test code = 1819) 40.0 % CALCIUM, [id number] 03:49:00* Test Item Value Reference Range Interpretation Comments CALCIUM IONIZED (BEAKER) (test code = 698) 1.13 mmol/L 1.12-1.27 PH, BLOOD (BEAKER) (test code = 1810) 7.52 Check serum Ionized Calcium level after 4 hours after IV Calcium replacement. POCT-GLUCOSE [id number] 02:50:00* Test Item Value Reference Range Interpretation Comments POC-GLUCOSE METER (BEAKER) (test code = 1538) 132 mg/dL 70-110 H TESTED AT [address] [address] POCT-GLUCOSE [id number] 01:18:00* Test Item Value Reference Range Interpretation Comments POC-GLUCOSE METER (BEAKER) (test code = 1538) 137 mg/dL 70-110 H TESTED AT [address] [address] POCT-GLUCOSE [id number] 00:07:00* Test Item Value Reference Range Interpretation Comments POC-GLUCOSE METER (BEAKER) (test code = 1538) 131 mg/dL 70-110 H TESTED AT [address] [address] BLOOD GAS, [id number] 22:54:00* Test Item Value Reference Range Interpretation Comments PH ARTERIAL (BEAKER) (test code = 383) 7.53 7.35-7.45 H PCO2 ARTERIAL (BEAKER) (test code = 384) 35 mmHg 35-45 PO2 ARTERIAL (BEAKER) (test code = 385) 66 mmHg 80-90 L O2 SATURATION ARTERIAL (BEAKER) (test code = 386) 94.2 % 96.0 -97.0 L HCO3 ARTERIAL (BEAKER) (test code = 388) 28 mmol/L 21-29 BASE EXCESS ARTERIAL (BEAKER) (test code = 387) 5.0 mmol/L -2.0-3 .0 H PATIENT TEMPERATURE (BEAKER) (test code = 1818) 38.0 C FIO2 (BEAKER) (test code = 1819) 40.0 % POCT-GLUCOSE [id number] 22:51:00* Test Item Value Reference Range Interpretation Comments POC-GLUCOSE METER (BEAKER) (test code = 1538) 167 mg/dL 70-110 H TESTED AT [address] [address] [id number] 22:08:00* Test Item Value Reference Range Interpretation Comments POTASSIUM (BEAKER) (test code = 379) 3.9 meq/L 3.5-5.1 PRN - repeat potassium levels every 1 hour until glucose level is less than 450 mg/[id number] 22:08:00* Test Item Value Reference Range Interpretation Comments MAGNESIUM (BEAKER) (test code = 627) 2.3 mg/dL 1.6-2.6 PRN - repeat potassium levels every 1 hour until glucose level is less than 450 mg/dLPOCT-GLUCOSE [id number] 22:00:00* Test Item Value Reference Range Interpretation Comments POC-GLUCOSE METER (BEAKER) (test code = 1538) 126 mg/dL 70-110 H TESTED AT [address] [address] HEMOGLOBIN AND [id number] 21:56:00* Test Item Value Reference Range Interpretation Comments HEMOGLOBIN (BEAKER) (test code = 410) 8.4 GM/DL 13.7-17.5 L HEMATOCRIT (BEAKER) (test code = 411) 26.0 % 40.1-51.0 L CALCIUM, [id number] 21:53:00* Test Item Value Reference Range Interpretation Comments CALCIUM IONIZED (BEAKER) (test code = 698) 1.10 mmol/L 1.12-1.27 L PH, BLOOD (BEAKER) (test code = 1810) 7.50 Check serum Ionized Calcium level after 4 hours after IV Calcium replacement. POCT-GLUCOSE [id number] 20:41:00* Test Item Value Reference Range Interpretation Comments POC-GLUCOSE METER (BEAKER) (test code = 1538) 90 mg/dL 70-110 TESTED AT [address] [address] BLOOD GAS, [id number] 18:42:00* Test Item Value Reference Range Interpretation Comments PH ARTERIAL (BEAKER) (test code = 383) 7.52 7.35-7.45 H PCO2 ARTERIAL (BEAKER) (test code = 384) 34 mmHg 35-45 L PO2 ARTERIAL (BEAKER) (test code = 385) 58 mmHg 80-90 L O2 SATURATION ARTERIAL (BEAKER) (test code = 386) 92.7 % 96.0 -97.0 L HCO3 ARTERIAL (BEAKER) (test code = 388) 27 mmol/L 21-29 BASE EXCESS ARTERIAL (BEAKER) (test code = 387) 4.4 mmol/L -2.0-3 .0 H PATIENT TEMPERATURE (BEAKER) (test code = 1818) 37.2 C FIO2 (BEAKER) (test code = 1819) 50.0 % POCT-GLUCOSE [id number] 17:49:00* Test Item Value Reference Range Interpretation Comments POC-GLUCOSE METER (BEAKER) (test code = 1538) 125 mg/dL 70-110 H TESTED AT [facility] [address] [facility] [address] BASIC METABOLIC [id number] 17:46:00* Test Item Value Reference Range Interpretation Comments SODIUM (BEAKER) (test code = 381) 148 meq/L 136-145 H POTASSIUM (BEAKER) (test code = 379) 4.0 meq/L 3.5-5.1 CHLORIDE (BEAKER) (test code = 382) 110 meq/L 98-107 H CO2 (BEAKER) (test code = 355) 26 meq/L 22-29 BLOOD UREA NITROGEN (BEAKER) (test code = 354) 88 mg/dL 7-21 H CREATININE (BEAKER) (test code = 358) 2.29 mg/dL 0.57-1.25 H GLUCOSE RANDOM (BEAKER) (test code = 652) 128 mg/dL 70-105 H CALCIUM (BEAKER) (test code = 697) 8.7 mg/dL 8.4-10.2 EGFR (BEAKER) (test code = 1092) 32 mL/min/1.73 sq m ESTIMATED GFR IS NOT ACCURATE CREATININE CLEARANCE IN PREDICTING GLOMERULAR FILTRATION RATE. ESTIMATED GFR IS NOT APPLICABLE FOR DIALYSIS PATIENTS. Specimen markedly ictericBLOOD GAS, [id number] 17:35:00* Test Item Value Reference Range Interpretation Comments PH ARTERIAL (BEAKER) (test code = 383) 7.50 7.35-7.45 H PCO2 ARTERIAL (BEAKER) (test code = 384) 35 mmHg 35-45 PO2 ARTERIAL (BEAKER) (test code = 385) 63 mmHg 80-90 L O2 SATURATION ARTERIAL (BEAKER) (test code = 386) 93.4 % 96.0 -97.0 L HCO3 ARTERIAL (BEAKER) (test code = 388) 27 mmol/L 21-29 BASE EXCESS ARTERIAL (BEAKER) (test code = 387) 3.5 mmol/L -2.0-3 .0 H PATIENT TEMPERATURE (BEAKER) (test code = 1818) 37.6 C FIO2 (BEAKER) (test code = 1819) 50.0 % POCT-GLUCOSE [id number] 15:27:00* Test Item Value Reference Range Interpretation Comments POC-GLUCOSE METER (BEAKER) (test code = 1538) 138 mg/dL 70-110 H TESTED AT [facility] [address] [facility] [address] [id number] 13:59:00* Test Item Value Reference Range Interpretation Comments MAGNESIUM (BEAKER) (test code = 627) 2.1 mg/dL 1.6-2.6 BASIC METABOLIC [id number] 13:59:00* Test Item Value Reference Range Interpretation Comments SODIUM (BEAKER) (test code = 381) 147 meq/L 136-145 H POTASSIUM (BEAKER) (test code = 379) 4.2 meq/L 3.5-5.1 CHLORIDE (BEAKER) (test code = 382) 109 meq/L 98-107 H CO2 (BEAKER) (test code = 355) 25 meq/L 22-29 BLOOD UREA NITROGEN (BEAKER) (test code = 354) 94 mg/dL 7-21 H CREATININE (BEAKER) (test code = 358) 2.28 mg/dL 0.57-1.25 H GLUCOSE RANDOM (BEAKER) (test code = 652) 139 mg/dL 70-105 H CALCIUM (BEAKER) (test code = 697) 8.7 mg/dL 8.4-10.2 EGFR (BEAKER) (test code = 1092) 32 mL/min/1.73 sq m ESTIMATED GFR IS NOT ACCURATE CREATININE CLEARANCE IN PREDICTING GLOMERULAR FILTRATION RATE. ESTIMATED GFR IS NOT APPLICABLE FOR DIALYSIS PATIENTS. Specimen markedly ictericBLOOD GAS, [id number] 13:40:00* Test Item Value Reference Range Interpretation Comments PH ARTERIAL (BEAKER) (test code = 383) 7.51 7.35-7.45 H PCO2 ARTERIAL (BEAKER) (test code = 384) 33 mmHg 35-45 L PO2 ARTERIAL (BEAKER) (test code = 385) 135 mmHg 80-90 H O2 SATURATION ARTERIAL (BEAKER) (test code = 386) 98.9 % 96.0 -97.0 H HCO3 ARTERIAL (BEAKER) (test code = 388) 25 mmol/L 21-29 BASE EXCESS ARTERIAL (BEAKER) (test code = 387) 2.4 mmol/L -2.0-3 .0 PATIENT TEMPERATURE (BEAKER) (test code = 1818) 37.5 C FIO2 (BEAKER) (test code = 1819) 50.0 % HEMOGLOBIN AND [id number] 13:40:00* Test Item Value Reference Range Interpretation Comments HEMOGLOBIN (BEAKER) (test code = 410) 7.4 GM/DL 13.7-17.5 L HEMATOCRIT (BEAKER) (test code = 411) 23.5 % 40.1-51.0 L Please collect after PRBCs doneRAD, CHEST, 1 VIEW, NON [id number] 11:32:00 Reason for exam:->Pulmonary edema evaluationShould this be performed at the bedside?->YesFINAL REPORT INDICATION: Pulmonary edema evaluation COMPARISON:June 14 TECHNIQUE: Chest radiograph, single view, portable technique. FINDINGS / IMPRESSION: No change in diffuse nonspecific interstitial opacities. No pneumothorax or pleural effusion demonstrated. Heart shadow is not enlarged. Tracheostomy tube, right internal jugular line, left internal jugular line and feeding tube again demonstrated. Signed: Natalio Santillan MDReport Verified Date/Time: 06/15/2018 11:32:52 Reading Location: [address] Consult Reading Room -GLUCOSE [id number] 10:50:00* Test Item Value Reference Range Interpretation Comments POC-GLUCOSE METER (BEAKER) (test code = 1538) 107 mg/dL 70-110 TESTED AT [address] [address] CBC W/PLT COUNT & AUTO [id number] 09:04:00* Test Item Value Reference Range Interpretation Comments WHITE BLOOD CELL COUNT (BEAKER) (test code = 775) 33.5 K/ L 3.5- 10.5 H RED BLOOD CELL COUNT (BEAKER) (test code = 761) 1.94 M/ L 4.63-6 .08 L HEMOGLOBIN (BEAKER) (test code = 410) 6.8 GM/DL 13.7-17.5 L HEMATOCRIT (BEAKER) (test code = 411) 22.2 % 40.1-51.0 L MEAN CORPUSCULAR VOLUME (BEAKER) (test code = 753) 114.4 fL 79. 0-92.2 H MEAN CORPUSCULAR HEMOGLOBIN (BEAKER) (test code = 751) 35.1 pg 25.7-32.2 H MEAN CORPUSCULAR HEMOGLOBIN CONC (BEAKER) (test code = 752) 30.6 GM/DL 32.3-36.5 L RED CELL DISTRIBUTION WIDTH (BEAKER) (test code = 412) 18.1 % 11.6-14.4 H PLATELET COUNT (BEAKER) (test code = 756) 333 K/CU MM 150-450 MEAN PLATELET VOLUME (BEAKER) (test code = 754) 11.6 fL 9.4-12 .4 NUCLEATED RED BLOOD CELLS (BEAKER) (test code = 413) 0 /100 WBC 0 -0 (CELLAVISION MANUAL DIFF)2018-06-15 09:04:00* Test Item Value Reference Range Interpretation Comments NEUTROPHILS - REL (CELLAVISION)(BEAKER) (test code = 2816) 89 % LYMPHOCYTES - REL (CELLAVISION)(BEAKER) (test code = 2817) 3 % MONOCYTES - REL (CELLAVISION)(BEAKER) (test code = 2818) 1 % EOSINOPHILS - REL (CELLAVISION)(BEAKER) (test code = 2819) 3 % BASOPHILS - REL (CELLAVISION)(BEAKER) (test code = 2820) 1 % BANDS - REL (CELLAVISION)(BEAKER) (test code = 2826) 3 % 0 -10 NEUTROPHILS - ABS (CELLAVISION)(BEAKER) (test code = 2830) 29.82 K/ul 1.78-5.38 H LYMPHOCYTES - ABS (CELLAVISION)(BEAKER) (test code = 2831) 1.01 K/ul 1.32-3.57 L MONOCYTES - ABS (CELLAVISION)(BEAKER) (test code = 2832) 0.34 K/uL 0.30-0.82 EOSINOPHILS - ABS (CELLAVISION)(BEAKER) (test code = 2834) 1.01 K/uL 0.04-0.54 H BASOPHILS - ABS (CELLAVISION)(BEAKER) (test code = 2835) 0.34 K/uL 0.01-0.08 H BANDS - ABS (CELLAVISION)(BEAKER) (test code = 2840) 1.01 K/uL 0 .00-0.80 H TOTAL COUNTED (BEAKER) (test code = 1351) 100 WBC MORPHOLOGY (BEAKER) (test code = 487) Normal CLUMPED PLATELETS (BEAKER) (test code = 436) Present GIANT PLATELETS (BEAKER) (test code = 313) Present POLYCHROMATOPHILLIC RBCS(BEAKER) (test code = 478) 1+ few HYPOCHROMIA (BEAKER) (test code = 963) 2+ moderate ANISOCYTOSIS (BEAKER) (test code = 961) 1+ few MACROCYTES (BEAKER) (test code = 964) 1+ few POIKILOCYTES (BEAKER) (test code = 966) 1+ few BASOPHILIC STIPPLING (BEAKER) (test code = 473) Present ARTIFACT (CELLAVISION)(BEAKER) (test code = 3432) Present PLATELET CONCENTRATION (CELLAVISION)(BEAKER) (test code = 3438) Cheryl quate Received comment: User comments: Slide comments: [id number] 08:43:00* Test Item Value Reference Range Interpretation Comments POTASSIUM (BEAKER) (test code = 379) 3.9 meq/L 3.5-5.1 PRN - repeat glucose levels every 1 hour or as specified by insulin titration or ders until glucose level is less than 450 mg/dLCheck Serum Potassium level 2 roxy rs after oral potassium replacement completed or 30 min after intravenous potass ium replacement.[id number] 08:43:00* Test Item Value Reference Range Interpretation Comments GLUCOSE RANDOM (BEAKER) (test code = 652) 123 mg/dL 70-105 H PRN - repeat glucose levels every 1 hour or as specified by insulin titration or ders until glucose level is less than 450 mg/dLCheck Serum Potassium level 2 roxy rs after oral potassium replacement completed or 30 min after intravenous potass ium replacement.HEMOGLOBIN AND [id number] 07:05:00* Test Item Value Reference Range Interpretation Comments HEMOGLOBIN (BEAKER) (test code = 410) 6.6 GM/DL 13.7-17.5 L HEMATOCRIT (BEAKER) (test code = 411) 21.3 % 40.1-51.0 L POCT-GLUCOSE [id number] 06:52:00* Test Item Value Reference Range Interpretation Comments POC-GLUCOSE METER (BEAKER) (test code = 1538) 117 mg/dL 70-110 H TESTED AT [facility] [address] [facility] [address] CALCIUM, [id number] 04:47:00* Test Item Value Reference Range Interpretation Comments CALCIUM IONIZED (BEAKER) (test code = 698) 1.10 mmol/L 1.12-1.27 L PH, BLOOD (BEAKER) (test code = 1810) 7.48 Check serum Ionized Calcium level after 4 hours after IV Calcium replacement. BLOOD GAS, [id number] 04:47:00* Test Item Value Reference Range Interpretation Comments PH ARTERIAL (BEAKER) (test code = 383) 7.47 7.35-7.45 H PCO2 ARTERIAL (BEAKER) (test code = 384) 39 mmHg 35-45 PO2 ARTERIAL (BEAKER) (test code = 385) 93 mmHg 80-90 H O2 SATURATION ARTERIAL (BEAKER) (test code = 386) 97.5 % 96.0 -97.0 H HCO3 ARTERIAL (BEAKER) (test code = 388) 28 mmol/L 21-29 BASE EXCESS ARTERIAL (BEAKER) (test code = 387) 3.9 mmol/L -2.0-3 .0 H PATIENT TEMPERATURE (BEAKER) (test code = 1818) 37.3 C FIO2 (BEAKER) (test code = 1819) 50.0 % BASIC METABOLIC [id number] 04:27:00* Test Item Value Reference Range Interpretation Comments SODIUM (BEAKER) (test code = 381) 148 meq/L 136-145 H POTASSIUM (BEAKER) (test code = 379) 3.7 meq/L 3.5-5.1 CHLORIDE (BEAKER) (test code = 382) 109 meq/L 98-107 H CO2 (BEAKER) (test code = 355) 26 meq/L 22-29 BLOOD UREA NITROGEN (BEAKER) (test code = 354) 94 mg/dL 7-21 H CREATININE (BEAKER) (test code = 358) 2.50 mg/dL 0.57-1.25 H GLUCOSE RANDOM (BEAKER) (test code = 652) 102 mg/dL 70-105 CALCIUM (BEAKER) (test code = 697) 8.8 mg/dL 8.4-10.2 EGFR (BEAKER) (test code = 1092) 29 mL/min/1.73 sq m ESTIMATED GFR IS NOT ACCURATE CREATININE CLEARANCE IN PREDICTING GLOMERULAR FILTRATION RATE. ESTIMATED GFR IS NOT APPLICABLE FOR DIALYSIS PATIENTS. Specimen markedly [id number] 04:15:00* Test Item Value Reference Range Interpretation Comments MAGNESIUM (BEAKER) (test code = 627) 2.4 mg/dL 1.6-2.6 HEPATIC FUNCTION [id number] 04:15:00* Test Item Value Reference Range Interpretation Comments TOTAL PROTEIN (BEAKER) (test code = 770) 6.4 gm/dL 6.0-8.3 ALBUMIN (BEAKER) (test code = 1145) 2.6 g/dL 3.5-5.0 L BILIRUBIN TOTAL (BEAKER) (test code = 377) 15.3 mg/dL 0.2-1.2 H BILIRUBIN DIRECT (BEAKER) (test code = 706) 11.9 mg/dL 0.1-0.5 H ALKALINE PHOSPHATASE (BEAKER) (test code = 346) 108 U/L 40-150 AST (SGOT) (BEAKER) (test code = 353) 334 U/L 5-34 H ALT (SGPT) (BEAKER) (test code = 347) 134 U/L 6-55 H Specimen markedly ictericPOCT-GLUCOSE [id number] 04:02:00* Test Item Value Reference Range Interpretation Comments POC-GLUCOSE METER (BEAKER) (test code = 1538) 107 mg/dL 70-110 TESTED AT [facility] [address] [facility] [address] [id number] 03:59:00* Test Item Value Reference Range Interpretation Comments PARTIAL THROMBOPLASTIN TIME (BEAKER) (test code = 760) 54.6 seconds 22.5-36.0 H PROTHROMBIN [id number] 03:58:00* Test Item Value Reference Range Interpretation Comments PROTIME (BEAKER) (test code = 759) 17.8 seconds 11.7-14.7 H INR (BEAKER) (test code = 370) 1.5 <=5.9 RECOMMENDED COUMADIN/WARFARIN INR THERAPY RANGESSTANDARD DOSE: 2.0 - 3.0 Inclu herb: PROPHYLAXIS for venous thrombosis, systemic embolization; TREATMENT for giulia ous thrombosis and/or pulmonary embolus.HIGH RISK: Target INR is 2.5-3.5 for pat ients with mechanical heart valves.LACTIC ACID, [id number] 03:56:00* Test Item Value Reference Range Interpretation Comments LACTATE BLOOD ARTERIAL (2) (BEAKER) (test code = 2874) 1.1 mmol/L 0.5-2.2 Specimen markedly ictericPOCT-GLUCOSE [id number] 03:10:00* Test Item Value Reference Range Interpretation Comments POC-GLUCOSE METER (BEAKER) (test code = 1538) 118 mg/dL 70-110 H TESTED AT [address] [address] POCT-GLUCOSE [id number] 02:11:00* Test Item Value Reference Range Interpretation Comments POC-GLUCOSE METER (BEAKER) (test code = 1538) 112 mg/dL 70-110 H TESTED AT [address] [address] POCT-GLUCOSE [id number] 01:28:00* Test Item Value Reference Range Interpretation Comments POC-GLUCOSE METER (BEAKER) (test code = 1538) 126 mg/dL 70-110 H TESTED AT [address] [address] BASIC METABOLIC [id number] 00:27:00* Test Item Value Reference Range Interpretation Comments SODIUM (BEAKER) (test code = 381) 149 meq/L 136-145 H POTASSIUM (BEAKER) (test code = 379) 3.7 meq/L 3.5-5.1 CHLORIDE (BEAKER) (test code = 382) 110 meq/L 98-107 H CO2 (BEAKER) (test code = 355) 25 meq/L 22-29 BLOOD UREA NITROGEN (BEAKER) (test code = 354) 96 mg/dL 7-21 H CREATININE (BEAKER) (test code = 358) 2.45 mg/dL 0.57-1.25 H GLUCOSE RANDOM (BEAKER) (test code = 652) 153 mg/dL 70-105 H CALCIUM (BEAKER) (test code = 697) 8.5 mg/dL 8.4-10.2 EGFR (BEAKER) (test code = 1092) 30 mL/min/1.73 sq m ESTIMATED GFR IS NOT ACCURATE CREATININE CLEARANCE IN PREDICTING GLOMERULAR FILTRATION RATE. ESTIMATED GFR IS NOT APPLICABLE FOR DIALYSIS PATIENTS. Specimen markedly ictericPOCT-GLUCOSE [id number] 00:22:00* Test Item Value Reference Range Interpretation Comments POC-GLUCOSE METER (BEAKER) (test code = 1538) 155 mg/dL 70-110 H TESTED AT [address] [address] POCT-GLUCOSE [id number] 23:18:00* Test Item Value Reference Range Interpretation Comments POC-GLUCOSE METER (BEAKER) (test code = 1538) 168 mg/dL 70-110 H TESTED AT [address] [address] POCT-GLUCOSE [id number] 22:13:00* Test Item Value Reference Range Interpretation Comments POC-GLUCOSE METER (BEAKER) (test code = 1538) 171 mg/dL 70-110 H TESTED AT [address] [address] [id number] 21:19:00* Test Item Value Reference Range Interpretation Comments MAGNESIUM (BEAKER) (test code = 627) 2.5 mg/dL 1.6-2.6 POCT-GLUCOSE [id number] 21:14:00* Test Item Value Reference Range Interpretation Comments POC-GLUCOSE METER (BEAKER) (test code = 1538) 166 mg/dL 70-110 H TESTED AT [address] [address] CALCIUM, [id number] 21:03:00* Test Item Value Reference Range Interpretation Comments CALCIUM IONIZED (BEAKER) (test code = 698) 1.07 mmol/L 1.12-1.27 L PH, BLOOD (BEAKER) (test code = 1810) 7.52 Check serum Ionized Calcium level after 4 hours after IV Calcium replacement. POCT-GLUCOSE [id number] 20:12:00* Test Item Value Reference Range Interpretation Comments POC-GLUCOSE METER (BEAKER) (test code = 1538) 172 mg/dL 70-110 H TESTED AT [address] [address] POCT-GLUCOSE [id number] 18:57:00* Test Item Value Reference Range Interpretation Comments POC-GLUCOSE METER (BEAKER) (test code = 1538) 158 mg/dL 70-110 H TESTED AT [place] [id number] [facility] [address] POCT-GLUCOSE [id number] 18:57:00* Test Item Value Reference Range Interpretation Comments POC-GLUCOSE METER (BEAKER) (test code = 1538) 172 mg/dL 70-110 H TESTED AT [address] [address] POCT-GLUCOSE [id number] 18:57:00* Test Item Value Reference Range Interpretation Comments POC-GLUCOSE METER (BEAKER) (test code = 1538) 139 mg/dL 70-110 H TESTED AT [address] [address] POCT-GLUCOSE [id number] 18:57:00* Test Item Value Reference Range Interpretation Comments POC-GLUCOSE METER (BEAKER) (test code = 1538) 98 mg/dL 70-110 TESTED AT [address] [address] BASIC METABOLIC [id number] 18:53:00* Test Item Value Reference Range Interpretation Comments SODIUM (BEAKER) (test code = 381) 150 meq/L 136-145 H POTASSIUM (BEAKER) (test code = 379) 3.3 meq/L 3.5-5.1 L CHLORIDE (BEAKER) (test code = 382) 109 meq/L 98-107 H CO2 (BEAKER) (test code = 355) 26 meq/L 22-29 BLOOD UREA NITROGEN (BEAKER) (test code = 354) 100 mg/dL 7-21 H CREATININE (BEAKER) (test code = 358) 2.63 mg/dL 0.57-1.25 H GLUCOSE RANDOM (BEAKER) (test code = 652) 153 mg/dL 70-105 H CALCIUM (BEAKER) (test code = 697) 8.6 mg/dL 8.4-10.2 EGFR (BEAKER) (test code = 1092) 27 mL/min/1.73 sq m ESTIMATED GFR IS NOT ACCURATE CREATININE CLEARANCE IN PREDICTING GLOMERULAR FILTRATION RATE. ESTIMATED GFR IS NOT APPLICABLE FOR DIALYSIS PATIENTS. Specimen markedly ictericEBV VIRAL [id number] 17:58:00* Test Item Value Reference Range Interpretation Comments EBV VIRAL LOAD - NEGATIVE (BEAKER) (test code = 2559) Negative or below the linear range of the assay (<500 copies/mL) This assay was performed by real-time PCR for the detection of the Alex-Mae virus (EBV) gene EBNA-1. The test is composed of (1) DNA extraction from patien t specimen, and (2) real-time PCR amplification and detection with XXOM-4-qfilgf ic primers and probes. A well-conserved region of the EBNA-1 gene is targeted, a long with an internal control sequence used to confirm PCR amplification. Asympt omatic carriers and viral genetic variation, among other factors, can affect the accuracy of nucleic acid testing; therefore, results should be interpreted in l ight of clinical data.This test was developed and its performance characteristic s determined by the [facility] Pathology Department, Section of [facility]. It has not been cleared or approved by the U.S. Food and Zach g Administration (FDA), since FDA approval is not required for clinical use of t he test. Validation was done as required by The Clinical Laboratory Improvement Amendments of 1988.POCT-GLUCOSE [id number] 14:21:00* Test Item Value Reference Range Interpretation Comments POC-GLUCOSE METER (BEAKER) (test code = 1538) 102 mg/dL 70-110 TESTED AT [place] [id number] [facility] [address] POCT-GLUCOSE [id number] 12:29:00* Test Item Value Reference Range Interpretation Comments POC-GLUCOSE METER (BEAKER) (test code = 1538) 101 mg/dL 70-110 TESTED AT [address] [address] BASIC METABOLIC [id number] 11:58:00* Test Item Value Reference Range Interpretation Comments SODIUM (BEAKER) (test code = 381) 150 meq/L 136-145 H POTASSIUM (BEAKER) (test code = 379) 3.4 meq/L 3.5-5.1 L CHLORIDE (BEAKER) (test code = 382) 110 meq/L 98-107 H CO2 (BEAKER) (test code = 355) 26 meq/L 22-29 BLOOD UREA NITROGEN (BEAKER) (test code = 354) 104 mg/dL 7-21 H CREATININE (BEAKER) (test code = 358) 2.65 mg/dL 0.57-1.25 H GLUCOSE RANDOM (BEAKER) (test code = 652) 115 mg/dL 70-105 H CALCIUM (BEAKER) (test code = 697) 8.7 mg/dL 8.4-10.2 EGFR (BEAKER) (test code = 1092) 27 mL/min/1.73 sq m ESTIMATED GFR IS NOT ACCURATE CREATININE CLEARANCE IN PREDICTING GLOMERULAR FILTRATION RATE. ESTIMATED GFR IS NOT APPLICABLE FOR DIALYSIS PATIENTS. Specimen markedly [id number] 11:55:00* Test Item Value Reference Range Interpretation Comments MAGNESIUM (BEAKER) (test code = 627) 2.8 mg/dL 1.6-2.6 H POCT-GLUCOSE [id number] 11:53:00* Test Item Value Reference Range Interpretation Comments POC-GLUCOSE METER (BEAKER) (test code = 1538) 134 mg/dL 70-110 H TESTED AT [address] [address] POCT-GLUCOSE [id number] 11:53:00* Test Item Value Reference Range Interpretation Comments POC-GLUCOSE METER (BEAKER) (test code = 1538) 134 mg/dL 70-110 H TESTED AT [address] [address] POCT-GLUCOSE [id number] 11:53:00* Test Item Value Reference Range Interpretation Comments POC-GLUCOSE METER (BEAKER) (test code = 1538) 161 mg/dL 70-110 H TESTED AT [address] [address] BLOOD GAS, [id number] 11:41:00* Test Item Value Reference Range Interpretation Comments PH ARTERIAL (BEAKER) (test code = 383) 7.48 7.35-7.45 H PCO2 ARTERIAL (BEAKER) (test code = 384) 40 mmHg 35-45 PO2 ARTERIAL (BEAKER) (test code = 385) 86 mmHg 80-90 O2 SATURATION ARTERIAL (BEAKER) (test code = 386) 96.9 % 96.0 -97.0 HCO3 ARTERIAL (BEAKER) (test code = 388) 29 mmol/L 21-29 BASE EXCESS ARTERIAL (BEAKER) (test code = 387) 4.9 mmol/L -2.0-3 .0 H PATIENT TEMPERATURE (BEAKER) (test code = 1818) 37.5 C FIO2 (BEAKER) (test code = 1819) 50.0 % CBC W/PLT COUNT & AUTO [id number] 10:02:00* Test Item Value Reference Range Interpretation Comments WHITE BLOOD CELL COUNT (BEAKER) (test code = 775) 36.7 K/ L 3.5- 10.5 H RED BLOOD CELL COUNT (BEAKER) (test code = 761) 2.12 M/ L 4.63-6 .08 L HEMOGLOBIN (BEAKER) (test code = 410) 7.4 GM/DL 13.7-17.5 L HEMATOCRIT (BEAKER) (test code = 411) 23.9 % 40.1-51.0 L MEAN CORPUSCULAR VOLUME (BEAKER) (test code = 753) 112.7 fL 79. 0-92.2 H MEAN CORPUSCULAR HEMOGLOBIN (BEAKER) (test code = 751) 34.9 pg 25.7-32.2 H MEAN CORPUSCULAR HEMOGLOBIN CONC (BEAKER) (test code = 752) 31.0 GM/DL 32.3-36.5 L RED CELL DISTRIBUTION WIDTH (BEAKER) (test code = 412) 17.8 % 11.6-14.4 H PLATELET COUNT (BEAKER) (test code = 756) 377 K/CU MM 150-450 MEAN PLATELET VOLUME (BEAKER) (test code = 754) 11.6 fL 9.4-12 .4 NUCLEATED RED BLOOD CELLS (BEAKER) (test code = 413) 0 /100 WBC 0 -0 (CELLAVISION MANUAL DIFF)2018-06-14 10:02:00* Test Item Value Reference Range Interpretation Comments NEUTROPHILS - REL (CELLAVISION)(BEAKER) (test code = 2816) 85 % LYMPHOCYTES - REL (CELLAVISION)(BEAKER) (test code = 2817) 3 % MONOCYTES - REL (CELLAVISION)(BEAKER) (test code = 2818) 4 % EOSINOPHILS - REL (CELLAVISION)(BEAKER) (test code = 2819) 5 % BASOPHILS - REL (CELLAVISION)(BEAKER) (test code = 2820) 1 % METAMYELOCYTES - REL (CELLAVISION)(BEAKER) (test code = 2821) 1 % 0-0 H BANDS - REL (CELLAVISION)(BEAKER) (test code = 2826) 1 % 0 -10 NEUTROPHILS - ABS (CELLAVISION)(BEAKER) (test code = 2830) 31.20 K/ul 1.78-5.38 H LYMPHOCYTES - ABS (CELLAVISION)(BEAKER) (test code = 2831) 1.10 K/ul 1.32-3.57 L MONOCYTES - ABS (CELLAVISION)(BEAKER) (test code = 2832) 1.47 K/uL 0.30-0.82 H EOSINOPHILS - ABS (CELLAVISION)(BEAKER) (test code = 2834) 1.84 K/uL 0.04-0.54 H BASOPHILS - ABS (CELLAVISION)(BEAKER) (test code = 2835) 0.37 K/uL 0.01-0.08 H METAMYELOCYTES - ABS (CELLAVISION)(BEAKER) (test code = 2836 ) 0.37 K/uL 0.00-0.00 H BANDS - ABS (CELLAVISION)(BEAKER) (test code = 2840) 0.37 K/uL 0 .00-0.80 TOTAL COUNTED (BEAKER) (test code = 1351) 100 MANUAL NRBC PER 100 CELLS (BEAKER) (test code = 1353) 1 /100 WBC 0-0 H PLT MORPHOLOGY (BEAKER) (test code = 486) Normal SMUDGE CELLS (BEAKER) (test code = 1371) Present POLYCHROMATOPHILLIC RBCS(BEAKER) (test code = 478) 2+ moderate ANISOCYTOSIS (BEAKER) (test code = 961) 1+ few TEAR DROP CELLS (BEAKER) (test code = 481) 1+ few PLATELET CONCENTRATION (CELLAVISION)(BEAKER) (test code = 3438) Cheryl quate Received comment: User comments: Slide comments: POCT-GLUCOSE [id number] 09:09:00* Test Item Value Reference Range Interpretation Comments POC-GLUCOSE METER (BEAKER) (test code = 1538) 159 mg/dL 70-110 H TESTED AT [facility] [address] [facility] [address] POCT-GLUCOSE [id number] 08:09:00* Test Item Value Reference Range Interpretation Comments POC-GLUCOSE METER (BEAKER) (test code = 1538) 178 mg/dL 70-110 H TESTED AT [facility] [address] [facility] [address] RAD, CHEST, 1 VIEW, NON [id number] 07:32:00Reason for exam:->respiratory insufficiencyShould this be performed at the bedside?->YesFINAL REPORT Follow up Chest radiograph Clinical History: Respiratory insufficiencyComparison: June 13, 2018Views: One AP lordotic Chest x-ray:The cardiac and mediastinal silhouettes are unchanged. There is no evidence of a pneumothorax. There is no evidence of a pleural effusion. There is no evidence of overt cardiac failure. Coarse increased interstitial markings are seen with patchy focal parenchymal opacities. A tracheostomy tube, right interna l jugular catheter, left internal jugular catheter and nasogastric tube are sati sfactorily positioned and unchanged. Impression:No change Signed: Digna Rogel MDReport Verified Date/Time: 06/14/2018 07:32:08 Reading Location: [facility] Radiology Reading Room [id number] 06:43:00* Test Item Value Reference Range Interpretation Comments PARTIAL THROMBOPLASTIN TIME (BEAKER) (test code = 760) 45.8 seconds 22.5-36.0 H PROTHROMBIN [id number] 06:42:00* Test Item Value Reference Range Interpretation Comments PROTIME (BEAKER) (test code = 759) 17.9 seconds 11.7-14.7 H INR (BEAKER) (test code = 370) 1.4 <=5.9 RECOMMENDED COUMADIN/WARFARIN INR THERAPY RANGESSTANDARD DOSE: 2.0 - 3.0 Inclu herb: PROPHYLAXIS for venous thrombosis, systemic embolization; TREATMENT for giulia ous thrombosis and/or pulmonary embolus.HIGH RISK: Target INR is 2.5-3.5 for pat ients with mechanical heart valves.BASIC METABOLIC [id number] 06:41:00* Test Item Value Reference Range Interpretation Comments SODIUM (BEAKER) (test code = 381) 148 meq/L 136-145 H POTASSIUM (BEAKER) (test code = 379) 3.6 meq/L 3.5-5.1 CHLORIDE (BEAKER) (test code = 382) 107 meq/L 98-107 CO2 (BEAKER) (test code = 355) 27 meq/L 22-29 BLOOD UREA NITROGEN (BEAKER) (test code = 354) 106 mg/dL 7-21 H CREATININE (BEAKER) (test code = 358) 2.77 mg/dL 0.57-1.25 H GLUCOSE RANDOM (BEAKER) (test code = 652) 167 mg/dL 70-105 H CALCIUM (BEAKER) (test code = 697) 8.8 mg/dL 8.4-10.2 EGFR (BEAKER) (test code = 1092) 26 mL/min/1.73 sq m ESTIMATED GFR IS NOT ACCURATE CREATININE CLEARANCE IN PREDICTING GLOMERULAR FILTRATION RATE. ESTIMATED GFR IS NOT APPLICABLE FOR DIALYSIS PATIENTS. Specimen markedly ictericPOCT-GLUCOSE [id number] 06:32:00* Test Item Value Reference Range Interpretation Comments POC-GLUCOSE METER (BEAKER) (test code = 1538) 175 mg/dL 70-110 H TESTED AT [address] [address] POCT-GLUCOSE [id number] 05:43:00* Test Item Value Reference Range Interpretation Comments POC-GLUCOSE METER (BEAKER) (test code = 1538) 149 mg/dL 70-110 H TESTED AT [address] [address] POCT-GLUCOSE [id number] 05:43:00* Test Item Value Reference Range Interpretation Comments POC-GLUCOSE METER (BEAKER) (test code = 1538) 140 mg/dL 70-110 H TESTED AT [address] [address] BASIC METABOLIC [id number] 04:55:00* Test Item Value Reference Range Interpretation Comments SODIUM (BEAKER) (test code = 381) 151 meq/L 136-145 H POTASSIUM (BEAKER) (test code = 379) 3.7 meq/L 3.5-5.1 CHLORIDE (BEAKER) (test code = 382) 108 meq/L 98-107 H CO2 (BEAKER) (test code = 355) 27 meq/L 22-29 BLOOD UREA NITROGEN (BEAKER) (test code = 354) 106 mg/dL 7-21 H CREATININE (BEAKER) (test code = 358) 2.77 mg/dL 0.57-1.25 H GLUCOSE RANDOM (BEAKER) (test code = 652) 134 mg/dL 70-105 H CALCIUM (BEAKER) (test code = 697) 8.6 mg/dL 8.4-10.2 EGFR (BEAKER) (test code = 1092) 26 mL/min/1.73 sq m ESTIMATED GFR IS NOT ACCURATE CREATININE CLEARANCE IN PREDICTING GLOMERULAR FILTRATION RATE. ESTIMATED GFR IS NOT APPLICABLE FOR DIALYSIS PATIENTS. Specimen markedly ictericBLOOD GAS, [id number] 04:37:00* Test Item Value Reference Range Interpretation Comments PH ARTERIAL (BEAKER) (test code = 383) 7.47 7.35-7.45 H PCO2 ARTERIAL (BEAKER) (test code = 384) 44 mmHg 35-45 PO2 ARTERIAL (BEAKER) (test code = 385) 104 mmHg 80-90 H O2 SATURATION ARTERIAL (BEAKER) (test code = 386) 97.8 % 96.0 -97.0 H HCO3 ARTERIAL (BEAKER) (test code = 388) 31 mmol/L 21-29 H BASE EXCESS ARTERIAL (BEAKER) (test code = 387) 6.7 mmol/L -2.0-3 .0 H PATIENT TEMPERATURE (BEAKER) (test code = 1818) 38.0 C FIO2 (BEAKER) (test code = 1819) 60.0 % BASIC METABOLIC [id number] 04:35:00* Test Item Value Reference Range Interpretation Comments SODIUM (BEAKER) (test code = 381) 149 meq/L 136-145 H POTASSIUM (BEAKER) (test code = 379) 3.7 meq/L 3.5-5.1 CHLORIDE (BEAKER) (test code = 382) 107 meq/L 98-107 CO2 (BEAKER) (test code = 355) 27 meq/L 22-29 BLOOD UREA NITROGEN (BEAKER) (test code = 354) 107 mg/dL 7-21 H CREATININE (BEAKER) (test code = 358) 2.80 mg/dL 0.57-1.25 H GLUCOSE RANDOM (BEAKER) (test code = 652) 131 mg/dL 70-105 H CALCIUM (BEAKER) (test code = 697) 8.6 mg/dL 8.4-10.2 EGFR (BEAKER) (test code = 1092) 25 mL/min/1.73 sq m ESTIMATED GFR IS NOT ACCURATE CREATININE CLEARANCE IN PREDICTING GLOMERULAR FILTRATION RATE. ESTIMATED GFR IS NOT APPLICABLE FOR DIALYSIS PATIENTS. Specimen markedly [id number] 04:25:00* Test Item Value Reference Range Interpretation Comments MAGNESIUM (BEAKER) (test code = 627) 2.4 mg/dL 1.6-2.6 HEPATIC FUNCTION [id number] 04:25:00* Test Item Value Reference Range Interpretation Comments TOTAL PROTEIN (BEAKER) (test code = 770) 6.7 gm/dL 6.0-8.3 ALBUMIN (BEAKER) (test code = 1145) 2.7 g/dL 3.5-5.0 L BILIRUBIN TOTAL (BEAKER) (test code = 377) 14.2 mg/dL 0.2-1.2 H BILIRUBIN DIRECT (BEAKER) (test code = 706) 10.9 mg/dL 0.1-0.5 H ALKALINE PHOSPHATASE (BEAKER) (test code = 346) 93 U/L 40-150 AST (SGOT) (BEAKER) (test code = 353) 294 U/L 5-34 H ALT (SGPT) (BEAKER) (test code = 347) 119 U/L 6-55 H Specimen markedly [id number] 04:25:00* Test Item Value Reference Range Interpretation Comments AMYLASE (BEAKER) (test code = 349) 80 U/L 25-125 Specimen markedly [id number] 04:25:00* Test Item Value Reference Range Interpretation Comments LIPASE (BEAKER) (test code = 749) 222 U/L 8-78 H Specimen markedly ictericLACTIC ACID, [id number] 04:17:00* Test Item Value Reference Range Interpretation Comments LACTATE BLOOD ARTERIAL (2) (BEAKER) (test code = 2874) 0.8 mmol/L 0.5-2.2 Specimen markedly ictericPOCT-GLUCOSE [id number] 02:31:00* Test Item Value Reference Range Interpretation Comments POC-GLUCOSE METER (BEAKER) (test code = 1538) 98 mg/dL 70-110 TESTED AT [facility] [address] [facility] [address] POCT-GLUCOSE [id number] 01:45:00* Test Item Value Reference Range Interpretation Comments POC-GLUCOSE METER (BEAKER) (test code = 1538) 120 mg/dL 70-110 H TESTED AT [facility] [address] [facility] [address] POCT-GLUCOSE [id number] 01:45:00* Test Item Value Reference Range Interpretation Comments POC-GLUCOSE METER (BEAKER) (test code = 1538) 171 mg/dL 70-110 H TESTED AT [facility] [address] [facility] [address] [address], CHEST, WITHOUT [id number] 00:56:00FINAL REPORT EXAM: CT of the chest, without contrast. CT of the abdomen and pelvis, without contrast. CLINICAL HISTORY: Abdominal pain. Leukocytosis of unknown cause. TECHNIQUE: CT chest, abdomen and pelvis was performed without intravenous contrast. Oral contrast was administered This exam was performed according to our departmental dose optimization program which includes automated exposure control, adjustment of the mA and/or kV according to patient's size and/or use of iterative reconstructive technique. COMPARISON: CT chest, abdomen and pelvis 06/08/2018. FINDINGS: CHEST: LOWER NECK: Bilateral IJ central venous catheters with tips in the SVC.AIRWAYS AND LUNGS: Endotracheal tube in satisfactory position. Patent central tracheobronchial tree. Diffuse bilateral airspace opacities with more consolidative opacities in the bilateral lower lo bes. Airspace disease in the bilateral upper lobes has decreased in the interval . Tree-in-bud nodular opacities in the right middle and right lower lobes which may be infectious or inflammatory in etiology. Diffuse bilateral groundglass haz iness and interlobular septal thickening compatible with interstitial edema.PLEU RA: No pleural effusion or pneumothorax.VESSELS: Within normal limits. HEART: No rmal heart size. No pericardial effusion.PK AND MEDIASTINUM: Within normal smith its.SOFT TISSUES: Within normal limits.BONES: No suspicious osseous lesions. AB DOMEN AND PELVIS: LIVER: Hepatomegaly. Hepatic steatosis.BILE DUCTS: Within norm al limits.GALL BLADDER: Hyperdensity within the gallbladder lumen which may repr esent an inspissated sludge and/or small stones. No gallbladder wall thickening or pericholecystic fat stranding.PANCREAS: Mild diffuse peripancreatic fat stran ding. No peripancreatic fluid collection.SPLEEN: Splenomegaly.ADRENALS: Within n ormal limits.KIDNEYS/URETERS: Within normal limits. URINARY BLADDER: Collapsed a round a Randolph catheter balloon.REPRODUCTIVE ORGANS: Within normal limits. BOWEL/ MESENTERY: Feeding tube with tip in the proximal duodenum. No bowel obstruction or abnormal wall thickening. Nonvisualization of the appendix but no secondary f indings to suggest acute appendicitis.PERITONEUM/RETROPERITONEUM: Small abdomina l and pelvic free fluid, grossly unchanged. No free air or fluid collection. VES SELS: Within normal limits. LYMPH NODES: No abdominal or pelvic lymphadenopathy. SOFT TISSUES: Within normal limits.BONES: No suspicious osseous lesions. IMPRESS ION:Multilobar pneumonia, improved in the interval.Pulmonary interstitial edema. Mild diffuse peripancreatic fat stranding may be due to surrounding ascites alvarado albert acute pancreatitis cannot be excluded. Correlate clinically.Hepatosplenomega ly. Hepatic steatosis.Small abdominal and pelvic ascites. No bowel obstruction, free air or fluid collection. Signed: Nicolás Ceballos MDReport Verified Date/Time: 06/14/2018 00:56:49 Reading Location: [address] Body Reading Room Amada ctronically signed by: NICOLÁS CEBALLOS MD on 06/14/2018 12:[address], [id number] 00:56:00With PO contrastFINAL REPORT EXAM: CT of the chest, without contrast. CT of the abdomen and pelvis, without contrast. CLINICAL HISTORY: Abdominal pain. Leukocytosis of unknown cause. TECHNIQUE: CT chest, abdomen and pelvis was performed without intravenous contrast. Oral contrast was administered This exam was performed according to our departmental dose optimization program which includes automated exposure control, adjustment of the mA and/or kV according to patient's size and/or use of iterative reconstructive technique. COMPARISON: CT chest, abdomen and pelvis 06/08/2018. FINDINGS: CHEST: LOWER NECK: Bilateral IJ central venous catheters with tips in the SVC.AIRWAYS AND LUNGS: Endotracheal tube in satisfactory position. Patent central tracheobronchial tree. Diffuse bilateral airspace opacities with more consolidative opacities in the bilateral lower lobes. Airspace disease in the bilateral upper lobes has decreased in the interval. Tree-in-bud nodular opacities in the right middle and right lower lobes which may be infectious or inflammatory in etiology. Diffuse bilateral groundglass haz iness and interlobular septal thickening compatible with interstitial edema.PLEU RA: No pleural effusion or pneumothorax.VESSELS: Within normal limits. HEART: No rmal heart size. No pericardial effusion.PK AND MEDIASTINUM: Within normal smith its.SOFT TISSUES: Within normal limits.BONES: No suspicious osseous lesions. AB DOMEN AND PELVIS: LIVER: Hepatomegaly. Hepatic steatosis.BILE DUCTS: Within norm al limits.GALL BLADDER: Hyperdensity within the gallbladder lumen which may repr esent an inspissated sludge and/or small stones. No gallbladder wall thickening or pericholecystic fat stranding.PANCREAS: Mild diffuse peripancreatic fat stran ding. No peripancreatic fluid collection.SPLEEN: Splenomegaly.ADRENALS: Within n ormal limits.KIDNEYS/URETERS: Within normal limits. URINARY BLADDER: Collapsed a round a Randolph catheter balloon.REPRODUCTIVE ORGANS: Within normal limits. BOWEL/ MESENTERY: Feeding tube with tip in the proximal duodenum. No bowel obstruction or abnormal wall thickening. Nonvisualization of the appendix but no secondary f indings to suggest acute appendicitis.PERITONEUM/RETROPERITONEUM: Small abdomina l and pelvic free fluid, grossly unchanged. No free air or fluid collection. VES SELS: Within normal limits. LYMPH NODES: No abdominal or pelvic lymphadenopathy. SOFT TISSUES: Within normal limits.BONES: No suspicious osseous lesions. IMPRESS ION:Multilobar pneumonia, improved in the interval.Pulmonary interstitial edema. Mild diffuse peripancreatic fat stranding may be due to surrounding ascites alvarado albert acute pancreatitis cannot be excluded. Correlate clinically.Hepatosplenomega ly. Hepatic steatosis.Small abdominal and pelvic ascites. No bowel obstruction, free air or fluid collection. Signed: Nicolás Ceballos MDReport Verified Date/Time: 06/14/2018 00:56:49 Reading Location: [facility] B1 C[address]Y CT Body Reading Room Amada ctronically signed by: NICOLÁS CEBALLOS MD on 06/14/2018 12:56 AM POCT- GLUCOSE [id number] 23:12:00* Test Item Value Reference Range Interpretation Comments POC-GLUCOSE METER (BEAKER) (test code = 1538) 200 mg/dL 70-110 H TESTED AT [facility] [address] [facility] [address] POCT-GLUCOSE [id number] 23:12:00* Test Item Value Reference Range Interpretation Comments POC-GLUCOSE METER (BEAKER) (test code = 1538) 132 mg/dL 70-110 H TESTED AT [facility] [address] [facility] [address] [id number] 21:11:00* Test Item Value Reference Range Interpretation Comments MAGNESIUM (BEAKER) (test code = 627) 2.5 mg/dL 1.6-2.6 POCT-GLUCOSE [id number] 20:48:00* Test Item Value Reference Range Interpretation Comments POC-GLUCOSE METER (BEAKER) (test code = 1538) 103 mg/dL 70-110 TESTED AT [address] [address] POCT-GLUCOSE [id number] 20:48:00* Test Item Value Reference Range Interpretation Comments POC-GLUCOSE METER (BEAKER) (test code = 1538) 98 mg/dL 70-110 TESTED AT [address] [address] POCT-GLUCOSE [id number] 18:14:00* Test Item Value Reference Range Interpretation Comments POC-GLUCOSE METER (BEAKER) (test code = 1538) 108 mg/dL 70-110 TESTED AT [address] [address] BASIC METABOLIC [id number] 18:09:00* Test Item Value Reference Range Interpretation Comments SODIUM (BEAKER) (test code = 381) 156 meq/L 136-145 H POTASSIUM (BEAKER) (test code = 379) 3.6 meq/L 3.5-5.1 Specimen slightly hemolyzed CHLORIDE (BEAKER) (test code = 382) 111 meq/L 98-107 H CO2 (BEAKER) (test code = 355) 32 meq/L 22-29 H BLOOD UREA NITROGEN (BEAKER) (test code = 354) 109 mg/dL 7-21 H CREATININE (BEAKER) (test code = 358) 2.84 mg/dL 0.57-1.25 H Specimen slightly hemolyzed GLUCOSE RANDOM (BEAKER) (test code = 652) 101 mg/dL 70-105 CALCIUM (BEAKER) (test code = 697) 9.0 mg/dL 8.4-10.2 EGFR (BEAKER) (test code = 1092) 25 mL/min/1.73 sq m ESTIMATED GFR IS NOT ACCURATE CREATININE CLEARANCE IN PREDICTING GLOMERULAR FILTRATION RATE. ESTIMATED GFR IS NOT APPLICABLE FOR DIALYSIS PATIENTS. Specimen markedly ictericBLOOD GAS, [id number] 16:57:00* Test Item Value Reference Range Interpretation Comments PH ARTERIAL (BEAKER) (test code = 383) 7.47 7.35-7.45 H PCO2 ARTERIAL (BEAKER) (test code = 384) 45 mmHg 35-45 PO2 ARTERIAL (BEAKER) (test code = 385) 111 mmHg 80-90 H O2 SATURATION ARTERIAL (BEAKER) (test code = 386) 98.1 % 96.0 -97.0 H HCO3 ARTERIAL (BEAKER) (test code = 388) 32 mmol/L 21-29 H BASE EXCESS ARTERIAL (BEAKER) (test code = 387) 7.7 mmol/L -2.0-3 .0 H PATIENT TEMPERATURE (BEAKER) (test code = 1818) 38.0 C FIO2 (BEAKER) (test code = 1819) 40.0 % POCT-GLUCOSE [id number] 16:51:00* Test Item Value Reference Range Interpretation Comments POC-GLUCOSE METER (BEAKER) (test code = 1538) 107 mg/dL 70-110 TESTED AT [facility] [address] [place] [address] CMV PCR, [id number] 16:28:00* Test Item Value Reference Range Interpretation Comments CMV VIRAL LOAD - NEGATIVE (BEAKER) (test code = 2558) Negative or below the linear range of the assay (<375 copies/mL) Cytomegalovirus (CMV) infection can cause significant disease in immunosuppresse d patients. However, it is common for CMV to manifest as a limited infection whi ch is of no clinical significance in immunosuppressed patients or in healthy ind ividuals.Viral load measurements are helpful to identify clinical CMV infection and to guide the pre-emptive management of antiviral therapy. For treatment of CMV infection due to reactivation in transplant recipients, a threshold between 4,000 and 5,000 copies/mL is suggested. For treatment of primary CMV infection, a lower threshold can be used.CMV infection may also be monitored using weekly serial measurements. Serial measurements of CMV DNA viral load can be evaluated by identifying a 10-fold change, as well as assessing the CMV DNA viral load and the clinical context for each patient.The plasma CMV DNA viral load was detecte d using quantitative polymerase chain reaction and fluorescent monitoring of a s pecific hybridized probe. Genetic variation and other factors can affect the acc uracy of nucleic acid testing. Therefore, the results should be interpreted in l ight of clinical data. A negative result may not exclude the presence of CMV dis ease.This test was developed and its performance characteristics determined by [facility] Pathology Department, Section of Molecular Patholog y. It has not been cleared or approved by the U.S. Food and Drug Administration (FDA), since FDA approval is not required for clinical use of the test. Validati on was done as required by The Clinical Laboratory Improvement Amendments of 198 8.POCT-GLUCOSE [id number] 15:09:00* Test Item Value Reference Range Interpretation Comments POC-GLUCOSE METER (BEAKER) (test code = 1538) 119 mg/dL 70-110 H TESTED AT [place] [id number] [facility] [address] POCT-GLUCOSE [id number] 14:43:00* Test Item Value Reference Range Interpretation Comments POC-GLUCOSE METER (BEAKER) (test code = 1538) 129 mg/dL 70-110 H TESTED AT [address] [address] BASIC METABOLIC [id number] 13:25:00* Test Item Value Reference Range Interpretation Comments SODIUM (BEAKER) (test code = 381) 155 meq/L 136-145 H POTASSIUM (BEAKER) (test code = 379) 3.7 meq/L 3.5-5.1 Specimen slightly hemolyzed CHLORIDE (BEAKER) (test code = 382) 110 meq/L 98-107 H CO2 (BEAKER) (test code = 355) 28 meq/L 22-29 BLOOD UREA NITROGEN (BEAKER) (test code = 354) 109 mg/dL 7-21 H CREATININE (BEAKER) (test code = 358) 2.70 mg/dL 0.57-1.25 H Specimen slightly hemolyzed GLUCOSE RANDOM (BEAKER) (test code = 652) 184 mg/dL 70-105 H CALCIUM (BEAKER) (test code = 697) 8.7 mg/dL 8.4-10.2 EGFR (BEAKER) (test code = 1092) 26 mL/min/1.73 sq m ESTIMATED GFR IS NOT ACCURATE CREATININE CLEARANCE IN PREDICTING GLOMERULAR FILTRATION RATE. ESTIMATED GFR IS NOT APPLICABLE FOR DIALYSIS PATIENTS. Specimen markedly ictericPOCT-GLUCOSE [id number] 13:23:00* Test Item Value Reference Range Interpretation Comments POC-GLUCOSE METER (BEAKER) (test code = 1538) 172 mg/dL 70-110 H TESTED AT [place] [id number] [facility] [address] [id number] 13:14:00* Test Item Value Reference Range Interpretation Comments MAGNESIUM (BEAKER) (test code = 627) 2.6 mg/dL 1.6-2.6 Specimen slightly hemolyzed POCT-GLUCOSE [id number] 12:04:00* Test Item Value Reference Range Interpretation Comments POC-GLUCOSE METER (BEAKER) (test code = 1538) 205 mg/dL 70-110 H TESTED AT [address] [address] POCT-GLUCOSE [id number] 11:10:00* Test Item Value Reference Range Interpretation Comments POC-GLUCOSE METER (BEAKER) (test code = 1538) 182 mg/dL 70-110 H TESTED AT [address] [address] BLOOD GAS, [id number] 10:41:00* Test Item Value Reference Range Interpretation Comments PH ARTERIAL (BEAKER) (test code = 383) 7.49 7.35-7.45 H PCO2 ARTERIAL (BEAKER) (test code = 384) 41 mmHg 35-45 PO2 ARTERIAL (BEAKER) (test code = 385) 88 mmHg 80-90 O2 SATURATION ARTERIAL (BEAKER) (test code = 386) 97.2 % 96.0 -97.0 H HCO3 ARTERIAL (BEAKER) (test code = 388) 30 mmol/L 21-29 H BASE EXCESS ARTERIAL (BEAKER) (test code = 387) 6.4 mmol/L -2.0-3 .0 H PATIENT TEMPERATURE (BEAKER) (test code = 1818) 37.0 C FIO2 (BEAKER) (test code = 1819) 100.0 % POCT-GLUCOSE [id number] 09:50:00* Test Item Value Reference Range Interpretation Comments POC-GLUCOSE METER (BEAKER) (test code = 1538) 138 mg/dL 70-110 H TESTED AT [address] [address] POCT-GLUCOSE [id number] 08:44:00* Test Item Value Reference Range Interpretation Comments POC-GLUCOSE METER (BEAKER) (test code = 1538) 98 mg/dL 70-110 TESTED AT [address] [address] BLOOD GAS, [id number] 06:47:00* Test Item Value Reference Range Interpretation Comments PH ARTERIAL (BEAKER) (test code = 383) 7.43 7.35-7.45 PCO2 ARTERIAL (BEAKER) (test code = 384) 51 mmHg 35-45 H PO2 ARTERIAL (BEAKER) (test code = 385) 126 mmHg 80-90 H O2 SATURATION ARTERIAL (BEAKER) (test code = 386) 98.5 % 96.0 -97.0 H HCO3 ARTERIAL (BEAKER) (test code = 388) 32 mmol/L 21-29 H BASE EXCESS ARTERIAL (BEAKER) (test code = 387) 7.1 mmol/L -2.0-3 .0 H PATIENT TEMPERATURE (BEAKER) (test code = 1818) 37.5 C FIO2 (BEAKER) (test code = 1819) 80.0 % POCT-GLUCOSE [id number] 06:41:00* Test Item Value Reference Range Interpretation Comments POC-GLUCOSE METER (BEAKER) (test code = 1538) 123 mg/dL 70-110 H TESTED AT [address] [address] POCT-GLUCOSE [id number] 06:41:00* Test Item Value Reference Range Interpretation Comments POC-GLUCOSE METER (BEAKER) (test code = 1538) 121 mg/dL 70-110 H TESTED AT [address] [address] BASIC METABOLIC [id number] 06:25:00* Test Item Value Reference Range Interpretation Comments SODIUM (BEAKER) (test code = 381) 155 meq/L 136-145 H POTASSIUM (BEAKER) (test code = 379) 3.5 meq/L 3.5-5.1 CHLORIDE (BEAKER) (test code = 382) 112 meq/L 98-107 H CO2 (BEAKER) (test code = 355) 29 meq/L 22-29 BLOOD UREA NITROGEN (BEAKER) (test code = 354) 112 mg/dL 7-21 H CREATININE (BEAKER) (test code = 358) 2.91 mg/dL 0.57-1.25 H GLUCOSE RANDOM (BEAKER) (test code = 652) 119 mg/dL 70-105 H CALCIUM (BEAKER) (test code = 697) 8.8 mg/dL 8.4-10.2 EGFR (BEAKER) (test code = 1092) 24 mL/min/1.73 sq m ESTIMATED GFR IS NOT ACCURATE CREATININE CLEARANCE IN PREDICTING GLOMERULAR FILTRATION RATE. ESTIMATED GFR IS NOT APPLICABLE FOR DIALYSIS PATIENTS. Specimen markedly ictericBASIC METABOLIC [id number] 03:47:00* Test Item Value Reference Range Interpretation Comments SODIUM (BEAKER) (test code = 381) 154 meq/L 136-145 H POTASSIUM (BEAKER) (test code = 379) 3.4 meq/L 3.5-5.1 L CHLORIDE (BEAKER) (test code = 382) 110 meq/L 98-107 H CO2 (BEAKER) (test code = 355) 28 meq/L 22-29 BLOOD UREA NITROGEN (BEAKER) (test code = 354) 111 mg/dL 7-21 H CREATININE (BEAKER) (test code = 358) 2.88 mg/dL 0.57-1.25 H GLUCOSE RANDOM (BEAKER) (test code = 652) 150 mg/dL 70-105 H CALCIUM (BEAKER) (test code = 697) 8.9 mg/dL 8.4-10.2 EGFR (BEAKER) (test code = 1092) 25 mL/min/1.73 sq m ESTIMATED GFR IS NOT ACCURATE CREATININE CLEARANCE IN PREDICTING GLOMERULAR FILTRATION RATE. ESTIMATED GFR IS NOT APPLICABLE FOR DIALYSIS PATIENTS. Specimen markedly [id number] 03:41:00* Test Item Value Reference Range Interpretation Comments MAGNESIUM (BEAKER) (test code = 627) 2.7 mg/dL 1.6-2.6 H HEPATIC FUNCTION [id number] 03:41:00* Test Item Value Reference Range Interpretation Comments TOTAL PROTEIN (BEAKER) (test code = 770) 6.6 gm/dL 6.0-8.3 ALBUMIN (BEAKER) (test code = 1145) 2.6 g/dL 3.5-5.0 L BILIRUBIN TOTAL (BEAKER) (test code = 377) 14.4 mg/dL 0.2-1.2 H BILIRUBIN DIRECT (BEAKER) (test code = 706) 11.2 mg/dL 0.1-0.5 H ALKALINE PHOSPHATASE (BEAKER) (test code = 346) 95 U/L 40-150 AST (SGOT) (BEAKER) (test code = 353) 252 U/L 5-34 H ALT (SGPT) (BEAKER) (test code = 347) 104 U/L 6-55 H Specimen markedly [id number] 03:39:00* Test Item Value Reference Range Interpretation Comments PARTIAL THROMBOPLASTIN TIME (BEAKER) (test code = 760) 48.3 seconds 22.5-36.0 H PROTHROMBIN [id number] 03:38:00* Test Item Value Reference Range Interpretation Comments PROTIME (BEAKER) (test code = 759) 17.7 seconds 11.7-14.7 H INR (BEAKER) (test code = 370) 1.5 <=5.9 RECOMMENDED COUMADIN/WARFARIN INR THERAPY RANGESSTANDARD DOSE: 2.0 - 3.0 Inclu herb: PROPHYLAXIS for venous thrombosis, systemic embolization; TREATMENT for giulia ous thrombosis and/or pulmonary embolus.HIGH RISK: Target INR is 2.5-3.5 for pat ients with mechanical heart valves.LACTIC ACID, [id number] 03:31:00* Test Item Value Reference Range Interpretation Comments LACTATE BLOOD ARTERIAL (2) (BEAKER) (test code = 2874) 0.8 mmol/L 0.5-2.2 Specimen markedly ictericCBC W/PLT COUNT & AUTO [id number] 03:24:00 * Test Item Value Reference Range Interpretation Comments WHITE BLOOD CELL COUNT (BEAKER) (test code = 775) 39.0 K/ L 3.5- 10.5 H RED BLOOD CELL COUNT (BEAKER) (test code = 761) 2.13 M/ L 4.63-6 .08 L HEMOGLOBIN (BEAKER) (test code = 410) 7.5 GM/DL 13.7-17.5 L HEMATOCRIT (BEAKER) (test code = 411) 24.0 % 40.1-51.0 L MEAN CORPUSCULAR VOLUME (BEAKER) (test code = 753) 112.7 fL 79. 0-92.2 H MEAN CORPUSCULAR HEMOGLOBIN (BEAKER) (test code = 751) 35.2 pg 25.7-32.2 H MEAN CORPUSCULAR HEMOGLOBIN CONC (BEAKER) (test code = 752) 31.3 GM/DL 32.3-36.5 L RED CELL DISTRIBUTION WIDTH (BEAKER) (test code = 412) 18.3 % 11.6-14.4 H PLATELET COUNT (BEAKER) (test code = 756) 352 K/CU MM 150-450 MEAN PLATELET VOLUME (BEAKER) (test code = 754) 11.6 fL 9.4-12 .4 NUCLEATED RED BLOOD CELLS (BEAKER) (test code = 413) 0 /100 WBC 0 -0 NEUTROPHILS RELATIVE PERCENT (BEAKER) (test code = 429) 86 % LYMPHOCYTES RELATIVE PERCENT (BEAKER) (test code = 430) 5 % MONOCYTES RELATIVE PERCENT (BEAKER) (test code = 431) 3 % EOSINOPHILS RELATIVE PERCENT (BEAKER) (test code = 432) 2 % BASOPHILS RELATIVE PERCENT (BEAKER) (test code = 437) 0 % NEUTROPHILS ABSOLUTE COUNT (BEAKER) (test code = 670) 33.59 K/ L 1.78-5.38 H LYMPHOCYTES ABSOLUTE COUNT (BEAKER) (test code = 414) 1.89 K/ L 1.32-3.57 MONOCYTES ABSOLUTE COUNT (BEAKER) (test code = 415) 1.23 K/ L 0. 30-0.82 H EOSINOPHILS ABSOLUTE COUNT (BEAKER) (test code = 416) 0.85 K/ L 0.04-0.54 H BASOPHILS ABSOLUTE COUNT (BEAKER) (test code = 417) 0.14 K/ L 0. 01-0.08 H IMMATURE GRANULOCYTES-RELATIVE PERCENT (BEAKER) (test code = 2801) 3 % 0-1 H POCT-GLUCOSE [id number] 03:06:00* Test Item Value Reference Range Interpretation Comments POC-GLUCOSE METER (BEAKER) (test code = 1538) 155 mg/dL 70-110 H TESTED AT [facility] [address] [facility] [address] BASIC METABOLIC [id number] 02:44:00* Test Item Value Reference Range Interpretation Comments SODIUM (BEAKER) (test code = 381) 154 meq/L 136-145 H POTASSIUM (BEAKER) (test code = 379) 3.8 meq/L 3.5-5.1 Specimen slightly hemolyzed CHLORIDE (BEAKER) (test code = 382) 109 meq/L 98-107 H CO2 (BEAKER) (test code = 355) 27 meq/L 22-29 BLOOD UREA NITROGEN (BEAKER) (test code = 354) 109 mg/dL 7-21 H CREATININE (BEAKER) (test code = 358) 2.75 mg/dL 0.57-1.25 H Specimen slightly hemolyzed GLUCOSE RANDOM (BEAKER) (test code = 652) 158 mg/dL 70-105 H CALCIUM (BEAKER) (test code = 697) 9.0 mg/dL 8.4-10.2 EGFR (BEAKER) (test code = 1092) 26 mL/min/1.73 sq m ESTIMATED GFR IS NOT ACCURATE CREATININE CLEARANCE IN PREDICTING GLOMERULAR FILTRATION RATE. ESTIMATED GFR IS NOT APPLICABLE FOR DIALYSIS PATIENTS. Specimen markedly ictericBLOOD GAS, [id number] 02:08:00* Test Item Value Reference Range Interpretation Comments PH ARTERIAL (BEAKER) (test code = 383) 7.45 7.35-7.45 PCO2 ARTERIAL (BEAKER) (test code = 384) 48 mmHg 35-45 H PO2 ARTERIAL (BEAKER) (test code = 385) 192 mmHg 80-90 H O2 SATURATION ARTERIAL (BEAKER) (test code = 386) 99.3 % 96.0 -97.0 H HCO3 ARTERIAL (BEAKER) (test code = 388) 32 mmol/L 21-29 H BASE EXCESS ARTERIAL (BEAKER) (test code = 387) 7.4 mmol/L -2.0-3 .0 H PATIENT TEMPERATURE (BEAKER) (test code = 1818) 37.5 C FIO2 (BEAKER) (test code = 1819) 100.0 % RAD, CHEST, 1 VIEW, NON [id number] 01:40:00Reason for exam:->decreased lung sounds; possible aspirationShould this be performed at the bedside?->YesFINAL REPORT CLINICAL INDICATION: Decreased lung sounds, concern for aspiration Comparison: 06/12/2018 The cardiomediastinal contours are stable. The lung volumes remain low. Central pulmonary vascular congestion and bilateral parenchymal opacities are unchanged. There is no pneumothorax. Support lines are stable. Signed: Katherine Reich MDReport Verified Date/Time: 06/14/19 01:40:10 Reading Location: [address] Reading Room [facility] signed by: KATHERINE REICH M.D. on 06/13/2018 01:40 AM RAD, ABDOMEN/KUB, 1 VIEW [id number] 01:37:00Reason for exam:->distended abdomenShould this be performed at the bedside?->YesFINAL REPORT CLINICAL HISTORY: Abdominal distention COMPARISON: 06/11/2018 FINDINGS: 2 supine views of the abdomen are submitted. There are several loops of gas dilated small bowel overlying the mid abdomen. There is gas in normal caliber large intestine. The appearance is nonspecific but could reflect ileus or early/partial small bowel obstruction. Evaluation with CT of the abdomen and pelvis can be obtained, if indicated. A feeding tube tip overlies the second portion of the duodenum. An enteric tube tip overlies the distal stomach. The lung volumes are low and bibasilar opacities may reflect atelectasis. Pneumonitis should be excluded clinically. There is no acute bony abnormality. Please note that a supine examination is insensitive in the detection of free intraperitoneal air. Signed: Katherine Reich MDReport Verified Date/Time: 06/13/2018 01:37:29 Reading Location: [address] Reading Room -GLUCOSE [id number] 00:36:00* Test Item Value Reference Range Interpretation Comments POC-GLUCOSE METER (BEAKER) (test code = 1538) 192 mg/dL 70-110 H TESTED AT [address] [address] OCCULT BLOOD, [id number] 22:31:00* Test Item Value Reference Range Interpretation Comments FECAL OCCULT BLOOD (BEAKER) (test code = 618) Positive Negative A [id number] 21:12:00* Test Item Value Reference Range Interpretation Comments MAGNESIUM (BEAKER) (test code = 627) 2.4 mg/dL 1.6-2.6 POCT-GLUCOSE [id number] 20:34:00* Test Item Value Reference Range Interpretation Comments POC-GLUCOSE METER (BEAKER) (test code = 1538) 160 mg/dL 70-110 H TESTED AT [address] [address] BASIC METABOLIC [id number] 18:27:00* Test Item Value Reference Range Interpretation Comments SODIUM (BEAKER) (test code = 381) 156 meq/L 136-145 H POTASSIUM (BEAKER) (test code = 379) 3.3 meq/L 3.5-5.1 L CHLORIDE (BEAKER) (test code = 382) 111 meq/L 98-107 H CO2 (BEAKER) (test code = 355) 31 meq/L 22-29 H BLOOD UREA NITROGEN (BEAKER) (test code = 354) 114 mg/dL 7-21 H CREATININE (BEAKER) (test code = 358) 2.95 mg/dL 0.57-1.25 H GLUCOSE RANDOM (BEAKER) (test code = 652) 145 mg/dL 70-105 H CALCIUM (BEAKER) (test code = 697) 9.2 mg/dL 8.4-10.2 EGFR (BEAKER) (test code = 1092) 24 mL/min/1.73 sq m ESTIMATED GFR IS NOT ACCURATE CREATININE CLEARANCE IN PREDICTING GLOMERULAR FILTRATION RATE. ESTIMATED GFR IS NOT APPLICABLE FOR DIALYSIS PATIENTS. Specimen markedly ictericPOCT-GLUCOSE [id number] 17:35:00* Test Item Value Reference Range Interpretation Comments POC-GLUCOSE METER (BEAKER) (test code = 1538) 136 mg/dL 70-110 H TESTED AT [place] [id number] [facility] [address] BLOOD GAS, [id number] 16:12:00* Test Item Value Reference Range Interpretation Comments PH ARTERIAL (BEAKER) (test code = 383) 7.50 7.35-7.45 H PCO2 ARTERIAL (BEAKER) (test code = 384) 42 mmHg 35-45 PO2 ARTERIAL (BEAKER) (test code = 385) 93 mmHg 80-90 H O2 SATURATION ARTERIAL (BEAKER) (test code = 386) 97.0 % 96.0 -97.0 HCO3 ARTERIAL (BEAKER) (test code = 388) 32 mmol/L 21-29 H BASE EXCESS ARTERIAL (BEAKER) (test code = 387) 8.4 mmol/L -2.0-3 .0 H PATIENT TEMPERATURE (BEAKER) (test code = 1818) 39.0 C FIO2 (BEAKER) (test code = 1819) 40.0 % POCT-GLUCOSE [id number] 14:51:00* Test Item Value Reference Range Interpretation Comments POC-GLUCOSE METER (BEAKER) (test code = 1538) 137 mg/dL 70-110 H TESTED AT [facility] [address] [facility] [address] POCT-GLUCOSE [id number] 13:23:00* Test Item Value Reference Range Interpretation Comments POC-GLUCOSE METER (BEAKER) (test code = 1538) 132 mg/dL 70-110 H TESTED AT [facility] [address] [facility] [address] BLOOD GAS, [id number] 13:13:00* Test Item Value Reference Range Interpretation Comments PH ARTERIAL (BEAKER) (test code = 383) 7.52 7.35-7.45 H PCO2 ARTERIAL (BEAKER) (test code = 384) 39 mmHg 35-45 PO2 ARTERIAL (BEAKER) (test code = 385) 72 mmHg 80-90 L O2 SATURATION ARTERIAL (BEAKER) (test code = 386) 95.9 % 96.0 -97.0 L HCO3 ARTERIAL (BEAKER) (test code = 388) 31 mmol/L 21-29 H BASE EXCESS ARTERIAL (BEAKER) (test code = 387) 7.7 mmol/L -2.0-3 .0 H PATIENT TEMPERATURE (BEAKER) (test code = 1818) 37.0 C FIO2 (BEAKER) (test code = 1819) 40.0 % BASIC METABOLIC [id number] 13:08:00* Test Item Value Reference Range Interpretation Comments SODIUM (BEAKER) (test code = 381) 154 meq/L 136-145 H POTASSIUM (BEAKER) (test code = 379) 3.4 meq/L 3.5-5.1 L CHLORIDE (BEAKER) (test code = 382) 109 meq/L 98-107 H CO2 (BEAKER) (test code = 355) 32 meq/L 22-29 H BLOOD UREA NITROGEN (BEAKER) (test code = 354) 115 mg/dL 7-21 H CREATININE (BEAKER) (test code = 358) 2.87 mg/dL 0.57-1.25 H GLUCOSE RANDOM (BEAKER) (test code = 652) 125 mg/dL 70-105 H CALCIUM (BEAKER) (test code = 697) 9.1 mg/dL 8.4-10.2 EGFR (BEAKER) (test code = 1092) 25 mL/min/1.73 sq m ESTIMATED GFR IS NOT ACCURATE CREATININE CLEARANCE IN PREDICTING GLOMERULAR FILTRATION RATE. ESTIMATED GFR IS NOT APPLICABLE FOR DIALYSIS PATIENTS. Specimen markedly [id number] 13:04:00* Test Item Value Reference Range Interpretation Comments MAGNESIUM (BEAKER) (test code = 627) 2.6 mg/dL 1.6-2.6 POCT-GLUCOSE [id number] 12:17:00* Test Item Value Reference Range Interpretation Comments POC-GLUCOSE METER (BEAKER) (test code = 1538) 123 mg/dL 70-110 H TESTED AT [address] [address] POCT-GLUCOSE [id number] 11:33:00* Test Item Value Reference Range Interpretation Comments POC-GLUCOSE METER (BEAKER) (test code = 1538) 133 mg/dL 70-110 H TESTED AT [address] [address] POCT-GLUCOSE [id number] 10:10:00* Test Item Value Reference Range Interpretation Comments POC-GLUCOSE METER (BEAKER) (test code = 1538) 151 mg/dL 70-110 H TESTED AT [address] [address] POCT-GLUCOSE [id number] 09:07:00* Test Item Value Reference Range Interpretation Comments POC-GLUCOSE METER (BEAKER) (test code = 1538) 155 mg/dL 70-110 H TESTED AT [address] [address] POCT-GLUCOSE [id number] 08:05:00* Test Item Value Reference Range Interpretation Comments POC-GLUCOSE METER (BEAKER) (test code = 1538) 143 mg/dL 70-110 H TESTED AT [address] [address] CBC W/PLT COUNT & AUTO [id number] 07:31:00* Test Item Value Reference Range Interpretation Comments WHITE BLOOD CELL COUNT (BEAKER) (test code = 775) 41.8 K/ L 3.5- 10.5 H RED BLOOD CELL COUNT (BEAKER) (test code = 761) 2.30 M/ L 4.63-6 .08 L HEMOGLOBIN (BEAKER) (test code = 410) 7.9 GM/DL 13.7-17.5 L HEMATOCRIT (BEAKER) (test code = 411) 25.7 % 40.1-51.0 L MEAN CORPUSCULAR VOLUME (BEAKER) (test code = 753) 111.7 fL 79. 0-92.2 H MEAN CORPUSCULAR HEMOGLOBIN (BEAKER) (test code = 751) 34.3 pg 25.7-32.2 H MEAN CORPUSCULAR HEMOGLOBIN CONC (BEAKER) (test code = 752) 30.7 GM/DL 32.3-36.5 L RED CELL DISTRIBUTION WIDTH (BEAKER) (test code = 412) 17.8 % 11.6-14.4 H PLATELET COUNT (BEAKER) (test code = 756) 329 K/CU MM 150-450 MEAN PLATELET VOLUME (BEAKER) (test code = 754) 11.7 fL 9.4-12 .4 NUCLEATED RED BLOOD CELLS (BEAKER) (test code = 413) 0 /100 WBC 0 -0 (CELLAVISION MANUAL DIFF)2018-06-12 07:31:00* Test Item Value Reference Range Interpretation Comments NEUTROPHILS - REL (CELLAVISION)(BEAKER) (test code = 2816) 86 % LYMPHOCYTES - REL (CELLAVISION)(BEAKER) (test code = 2817) 3 % MONOCYTES - REL (CELLAVISION)(BEAKER) (test code = 2818) 6 % EOSINOPHILS - REL (CELLAVISION)(BEAKER) (test code = 2819) 4 % BASOPHILS - REL (CELLAVISION)(BEAKER) (test code = 2820) 1 % NEUTROPHILS - ABS (CELLAVISION)(BEAKER) (test code = 2830) 35.95 K/ul 1.78-5.38 H LYMPHOCYTES - ABS (CELLAVISION)(BEAKER) (test code = 2831) 1.25 K/ul 1.32-3.57 L MONOCYTES - ABS (CELLAVISION)(BEAKER) (test code = 2832) 2.51 K/uL 0.30-0.82 H EOSINOPHILS - ABS (CELLAVISION)(BEAKER) (test code = 2834) 1.67 K/uL 0.04-0.54 H BASOPHILS - ABS (CELLAVISION)(BEAKER) (test code = 2835) 0.42 K/uL 0.01-0.08 H TOTAL COUNTED (BEAKER) (test code = 1351) 100 WBC MORPHOLOGY (BEAKER) (test code = 487) Normal LARGE PLT(BEAKER) (test code = 2156) Present POLYCHROMATOPHILLIC RBCS(BEAKER) (test code = 478) 3+ many ANISOCYTOSIS (BEAKER) (test code = 961) 2+ moderate MACROCYTES (BEAKER) (test code = 964) 1+ few POIKILOCYTES (BEAKER) (test code = 966) 2+ moderate SPHEROCYTES (BEAKER) (test code = 768) 1+ few ELLIPTOCYTES (BEAKER) (test code = 962) 1+ few OVALOCYTES (BEAKER) (test code = 477) 1+ few TEAR DROP CELLS (BEAKER) (test code = 481) 1+ few BASOPHILIC STIPPLING (BEAKER) (test code = 473) Present ARTIFACT (CELLAVISION)(BEAKER) (test code = 3432) Present PLATELET CONCENTRATION (CELLAVISION)(BEAKER) (test code = 3438) Cheryl quate Received comment: User comments: Slide comments: WBC: SEGMENTED WITH TOXIC GRANU LATION PRESENT RAD, CHEST, 1 VIEW, NON [id number] 06:50:00Reason for exam:-> respiratory insufficiencyShould this be performed at the bedside?->YesFINAL REPORT RAD, CHEST, 1 VIEW, NON DEPT INDICATION: res piratory insufficiency COMPARISON: Prior day's exam FINDINGS: Portable frontal v iew of the chest. IMPRESSION: Right IJ catheter, feeding tube and tracheostom y are unchanged. Decreased interstitial edema and bibasilar subsegmental atelect asis. No pneumothorax The cardiac silhouette is unchanged. Signed: Areli Avendaño MDReport Verified Date/Time: 06/12/2018 06:50:17 Reading Location: [address] Neuro Reading Room Electronically signed by: MD rafaela MO 06/12/2018 06:50 AM POCT-GLUCOSE [id number] 06:23:00* Test Item Value Reference Range Interpretation Comments POC-GLUCOSE METER (BEAKER) (test code = 1538) 161 mg/dL 70-110 H TESTED AT [facility] [address] [facility] [address] POCT-GLUCOSE [id number] 05:09:00* Test Item Value Reference Range Interpretation Comments POC-GLUCOSE METER (BEAKER) (test code = 1538) 177 mg/dL 70-110 H TESTED AT [facility] [address] [facility] [address] POCT-GLUCOSE [id number] 05:09:00* Test Item Value Reference Range Interpretation Comments POC-GLUCOSE METER (BEAKER) (test code = 1538) 188 mg/dL 70-110 H TESTED AT [place] [id number] [facility] [address] BLOOD GAS, [id number] 04:41:00* Test Item Value Reference Range Interpretation Comments PH ARTERIAL (BEAKER) (test code = 383) 7.44 7.35-7.45 PCO2 ARTERIAL (BEAKER) (test code = 384) 49 mmHg 35-45 H PO2 ARTERIAL (BEAKER) (test code = 385) 99 mmHg 80-90 H O2 SATURATION ARTERIAL (BEAKER) (test code = 386) 97.7 % 96.0 -97.0 H HCO3 ARTERIAL (BEAKER) (test code = 388) 33 mmol/L 21-29 H BASE EXCESS ARTERIAL (BEAKER) (test code = 387) 7.6 mmol/L -2.0-3 .0 H PATIENT TEMPERATURE (BEAKER) (test code = 1818) 37.0 C FIO2 (BEAKER) (test code = 1819) 50.0 % CALCIUM, [id number] 04:41:00* Test Item Value Reference Range Interpretation Comments CALCIUM IONIZED (BEAKER) (test code = 698) 1.08 mmol/L 1.12-1.27 L PH, BLOOD (BEAKER) (test code = 1810) 7.44 BASIC METABOLIC [id number] 04:24:00* Test Item Value Reference Range Interpretation Comments SODIUM (BEAKER) (test code = 381) 154 meq/L 136-145 H POTASSIUM (BEAKER) (test code = 379) 3.6 meq/L 3.5-5.1 CHLORIDE (BEAKER) (test code = 382) 108 meq/L 98-107 H CO2 (BEAKER) (test code = 355) 31 meq/L 22-29 H BLOOD UREA NITROGEN (BEAKER) (test code = 354) 118 mg/dL 7-21 H CREATININE (BEAKER) (test code = 358) 3.09 mg/dL 0.57-1.25 H GLUCOSE RANDOM (BEAKER) (test code = 652) 202 mg/dL 70-105 H CALCIUM (BEAKER) (test code = 697) 9.0 mg/dL 8.4-10.2 EGFR (BEAKER) (test code = 1092) 23 mL/min/1.73 sq m ESTIMATED GFR IS NOT ACCURATE CREATININE CLEARANCE IN PREDICTING GLOMERULAR FILTRATION RATE. ESTIMATED GFR IS NOT APPLICABLE FOR DIALYSIS PATIENTS. Specimen markedly [id number] 04:23:00* Test Item Value Reference Range Interpretation Comments PHOSPHORUS (BEAKER) (test code = 604) 5.0 mg/dL 2.3-4.7 H [id number] 04:23:00* Test Item Value Reference Range Interpretation Comments MAGNESIUM (BEAKER) (test code = 627) 2.8 mg/dL 1.6-2.6 H HEPATIC FUNCTION [id number] 04:23:00* Test Item Value Reference Range Interpretation Comments TOTAL PROTEIN (BEAKER) (test code = 770) 6.7 gm/dL 6.0-8.3 ALBUMIN (BEAKER) (test code = 1145) 2.6 g/dL 3.5-5.0 L BILIRUBIN TOTAL (BEAKER) (test code = 377) 17.9 mg/dL 0.2-1.2 H BILIRUBIN DIRECT (BEAKER) (test code = 706) 13.6 mg/dL 0.1-0.5 H ALKALINE PHOSPHATASE (BEAKER) (test code = 346) 103 U/L 40-150 AST (SGOT) (BEAKER) (test code = 353) 196 U/L 5-34 H ALT (SGPT) (BEAKER) (test code = 347) 96 U/L 6-55 H Specimen markedly [id number] 04:22:00* Test Item Value Reference Range Interpretation Comments PARTIAL THROMBOPLASTIN TIME (BEAKER) (test code = 760) 54.7 seconds 22.5-36.0 H PROTHROMBIN [id number] 04:21:00* Test Item Value Reference Range Interpretation Comments PROTIME (BEAKER) (test code = 759) 17.4 seconds 11.7-14.7 H INR (BEAKER) (test code = 370) 1.4 <=5.9 RECOMMENDED COUMADIN/WARFARIN INR THERAPY RANGESSTANDARD DOSE: 2.0 - 3.0 Inclu herb: PROPHYLAXIS for venous thrombosis, systemic embolization; TREATMENT for giulia ous thrombosis and/or pulmonary embolus.HIGH RISK: Target INR is 2.5-3.5 for pat ients with mechanical heart valves.LACTIC ACID, [id number] 04:15:00* Test Item Value Reference Range Interpretation Comments LACTATE BLOOD ARTERIAL (2) (BEAKER) (test code = 2874) 0.9 mmol/L 0.5-2.2 Specimen slightly hemolyzed Specimen markedly [id number] 02:06:00* Test Item Value Reference Range Interpretation Comments POTASSIUM (BEAKER) (test code = 379) 3.5 meq/L 3.5-5.1 [id number] 02:06:00* Test Item Value Reference Range Interpretation Comments GLUCOSE RANDOM (BEAKER) (test code = 652) 225 mg/dL 70-105 H BASIC METABOLIC [id number] 00:30:00* Test Item Value Reference Range Interpretation Comments SODIUM (BEAKER) (test code = 381) 152 meq/L 136-145 H POTASSIUM (BEAKER) (test code = 379) 3.7 meq/L 3.5-5.1 CHLORIDE (BEAKER) (test code = 382) 108 meq/L 98-107 H CO2 (BEAKER) (test code = 355) 28 meq/L 22-29 BLOOD UREA NITROGEN (BEAKER) (test code = 354) 116 mg/dL 7-21 H CREATININE (BEAKER) (test code = 358) 3.01 mg/dL 0.57-1.25 H GLUCOSE RANDOM (BEAKER) (test code = 652) 228 mg/dL 70-105 H CALCIUM (BEAKER) (test code = 697) 8.8 mg/dL 8.4-10.2 EGFR (BEAKER) (test code = 1092) 23 mL/min/1.73 sq m ESTIMATED GFR IS NOT ACCURATE CREATININE CLEARANCE IN PREDICTING GLOMERULAR FILTRATION RATE. ESTIMATED GFR IS NOT APPLICABLE FOR DIALYSIS PATIENTS. Specimen markedly ictericPOCT-GLUCOSE [id number] 00:28:00* Test Item Value Reference Range Interpretation Comments POC-GLUCOSE METER (BEAKER) (test code = 1538) 245 mg/dL 70-110 H TESTED AT [facility] [address] [facility] [address] BLOOD GAS, [id number] 22:23:00* Test Item Value Reference Range Interpretation Comments PH ARTERIAL (BEAKER) (test code = 383) 7.44 7.35-7.45 PCO2 ARTERIAL (BEAKER) (test code = 384) 47 mmHg 35-45 H PO2 ARTERIAL (BEAKER) (test code = 385) 98 mmHg 80-90 H O2 SATURATION ARTERIAL (BEAKER) (test code = 386) 97.5 % 96.0 -97.0 H HCO3 ARTERIAL (BEAKER) (test code = 388) 32 mmol/L 21-29 H BASE EXCESS ARTERIAL (BEAKER) (test code = 387) 6.8 mmol/L -2.0-3 .0 H PATIENT TEMPERATURE (BEAKER) (test code = 1818) 37.5 C FIO2 (BEAKER) (test code = 1819) 50.0 % BASIC METABOLIC [id number] 20:15:00* Test Item Value Reference Range Interpretation Comments SODIUM (BEAKER) (test code = 381) 152 meq/L 136-145 H POTASSIUM (BEAKER) (test code = 379) 3.6 meq/L 3.5-5.1 CHLORIDE (BEAKER) (test code = 382) 106 meq/L 98-107 CO2 (BEAKER) (test code = 355) 30 meq/L 22-29 H BLOOD UREA NITROGEN (BEAKER) (test code = 354) 117 mg/dL 7-21 H CREATININE (BEAKER) (test code = 358) 3.29 mg/dL 0.57-1.25 H GLUCOSE RANDOM (BEAKER) (test code = 652) 207 mg/dL 70-105 H CALCIUM (BEAKER) (test code = 697) 8.9 mg/dL 8.4-10.2 EGFR (BEAKER) (test code = 1092) 21 mL/min/1.73 sq m ESTIMATED GFR IS NOT ACCURATE CREATININE CLEARANCE IN PREDICTING GLOMERULAR FILTRATION RATE. ESTIMATED GFR IS NOT APPLICABLE FOR DIALYSIS PATIENTS. Specimen markedly [id number] 20:07:00* Test Item Value Reference Range Interpretation Comments MAGNESIUM (BEAKER) (test code = 627) 2.6 mg/dL 1.6-2.6 RAD, CHEST, 1 VIEW, NON [id number] 19:02:00Reason for exam:->new right IJ lineShould this be performed at the bedside?->YesFINAL REPORT Chest, one view. HISTORY: new right IJ line COMPARISON: Radiograph from earlier today IMPRESSION: Interval placement of a right IJ central venous catheter with the tip over the lower SVC. No pneumothorax. Interval placement of a tracheostomy tube over the expected location. Unchanged positioning of a left IJ central venous catheter. The interstitial edema and bibasilar subsegmental atelectasis are unchanged. The cardiac silhouette is unchanged. Signed: Kyle Rae MDReport Verified Date/Time: 06/11/2018 19:02:45 Reading Location: [address] Consult Reading Room C METABOLIC [id number] 15:15:00* Test Item Value Reference Range Interpretation Comments SODIUM (BEAKER) (test code = 381) 153 meq/L 136-145 H POTASSIUM (BEAKER) (test code = 379) 3.9 meq/L 3.5-5.1 CHLORIDE (BEAKER) (test code = 382) 106 meq/L 98-107 CO2 (BEAKER) (test code = 355) 32 meq/L 22-29 H BLOOD UREA NITROGEN (BEAKER) (test code = 354) 119 mg/dL 7-21 H CREATININE (BEAKER) (test code = 358) 3.41 mg/dL 0.57-1.25 H GLUCOSE RANDOM (BEAKER) (test code = 652) 223 mg/dL 70-105 H CALCIUM (BEAKER) (test code = 697) 9.0 mg/dL 8.4-10.2 EGFR (BEAKER) (test code = 1092) 20 mL/min/1.73 sq m ESTIMATED GFR IS NOT ACCURATE CREATININE CLEARANCE IN PREDICTING GLOMERULAR FILTRATION RATE. ESTIMATED GFR IS NOT APPLICABLE FOR DIALYSIS PATIENTS. Specimen markedly [id number] 15:09:00* Test Item Value Reference Range Interpretation Comments MAGNESIUM (BEAKER) (test code = 627) 2.6 mg/dL 1.6-2.6 POCT-GLUCOSE [id number] 13:44:00* Test Item Value Reference Range Interpretation Comments POC-GLUCOSE METER (BEAKER) (test code = 1538) 226 mg/dL 70-110 H TESTED AT [facility] [address] [facility] [address] SPIN/CONCENTRATION [id number] 12:22:00* Test Item Value Reference Range Interpretation Comments CONCENTRATION CHARGED (BEAKER) (test code = 2657) Done RAD, CHEST, 1 VIEW, NON [id number] 07:49:00Reason for exam:->pulmonary edemaShould this be performed at the bedside?->YesFINAL REPORT Chest one view. Clinical history: pulmonary edema Comparison: 06/10/2018 Discussion: A frontal chest is provided. Cardiomediastinal contours are unchanged. Lines and tubes are in stable position. Low lung volume. There is mild interstitial prominence, which is nonspecific and may reflect edema. Small foci of patchy bibasilar opacities may reflect atelectasis or consolidation. Hazy opacities in the upper lung zones are also seen. No pneu mothorax or large effusion. Signed: Gela Rodriguez Verified Date/Time: 06/11 07:49:11 Reading Location: [facility] Radiology Reading Room Amada ctronically signed by: GELA RODRIGUEZ M.D. on 06/11/2018 07:49 AM LACTIC ACID, [id number] 04:44:00* Test Item Value Reference Range Interpretation Comments LACTATE BLOOD ARTERIAL (2) (BEAKER) (test code = 2874) 0.9 mmol/L 0.5-2.2 Specimen markedly ictericBASIC METABOLIC [id number] 04:39:00* Test Item Value Reference Range Interpretation Comments SODIUM (BEAKER) (test code = 381) 150 meq/L 136-145 H POTASSIUM (BEAKER) (test code = 379) 3.9 meq/L 3.5-5.1 CHLORIDE (BEAKER) (test code = 382) 104 meq/L 98-107 CO2 (BEAKER) (test code = 355) 31 meq/L 22-29 H BLOOD UREA NITROGEN (BEAKER) (test code = 354) 116 mg/dL 7-21 H CREATININE (BEAKER) (test code = 358) 3.48 mg/dL 0.57-1.25 H GLUCOSE RANDOM (BEAKER) (test code = 652) 273 mg/dL 70-105 H CALCIUM (BEAKER) (test code = 697) 9.0 mg/dL 8.4-10.2 EGFR (BEAKER) (test code = 1092) 20 mL/min/1.73 sq m ESTIMATED GFR IS NOT ACCURATE CREATININE CLEARANCE IN PREDICTING GLOMERULAR FILTRATION RATE. ESTIMATED GFR IS NOT APPLICABLE FOR DIALYSIS PATIENTS. Specimen markedly [id number] 04:38:00* Test Item Value Reference Range Interpretation Comments PHOSPHORUS (BEAKER) (test code = 604) 6.5 mg/dL 2.3-4.7 H [id number] 04:38:00* Test Item Value Reference Range Interpretation Comments MAGNESIUM (BEAKER) (test code = 627) 2.7 mg/dL 1.6-2.6 H HEPATIC FUNCTION [id number] 04:38:00* Test Item Value Reference Range Interpretation Comments TOTAL PROTEIN (BEAKER) (test code = 770) 6.2 gm/dL 6.0-8.3 ALBUMIN (BEAKER) (test code = 1145) 2.5 g/dL 3.5-5.0 L BILIRUBIN TOTAL (BEAKER) (test code = 377) 18.5 mg/dL 0.2-1.2 H BILIRUBIN DIRECT (BEAKER) (test code = 706) 13.8 mg/dL 0.1-0.5 H ALKALINE PHOSPHATASE (BEAKER) (test code = 346) 114 U/L 40-150 AST (SGOT) (BEAKER) (test code = 353) 267 U/L 5-34 H ALT (SGPT) (BEAKER) (test code = 347) 115 U/L 6-55 H Specimen markedly ictericCREATINE KINASE (CK)2018-06-11 04:38:00* Test Item Value Reference Range Interpretation Comments CREATINE KINASE TOTAL (BEAKER) (test code = 380) 116 U/L 29-20 0 [id number] 04:33:00* Test Item Value Reference Range Interpretation Comments PARTIAL THROMBOPLASTIN TIME (BEAKER) (test code = 760) 50.5 seconds 22.5-36.0 H PROTHROMBIN [id number] 04:32:00* Test Item Value Reference Range Interpretation Comments PROTIME (BEAKER) (test code = 759) 17.5 seconds 11.7-14.7 H INR (BEAKER) (test code = 370) 1.4 <=5.9 RECOMMENDED COUMADIN/WARFARIN INR THERAPY RANGESSTANDARD DOSE: 2.0 - 3.0 Inclu herb: PROPHYLAXIS for venous thrombosis, systemic embolization; TREATMENT for giulia ous thrombosis and/or pulmonary embolus.HIGH RISK: Target INR is 2.5-3.5 for pat ients with mechanical heart valves.CBC W/PLT COUNT & AUTO [id number] 04:29:00* Test Item Value Reference Range Interpretation Comments WHITE BLOOD CELL COUNT (BEAKER) (test code = 775) 34.9 K/ L 3.5- 10.5 H RED BLOOD CELL COUNT (BEAKER) (test code = 761) 2.06 M/ L 4.63-6 .08 L HEMOGLOBIN (BEAKER) (test code = 410) 7.3 GM/DL 13.7-17.5 L HEMATOCRIT (BEAKER) (test code = 411) 23.6 % 40.1-51.0 L MEAN CORPUSCULAR VOLUME (BEAKER) (test code = 753) 114.6 fL 79. 0-92.2 H MEAN CORPUSCULAR HEMOGLOBIN (BEAKER) (test code = 751) 35.4 pg 25.7-32.2 H MEAN CORPUSCULAR HEMOGLOBIN CONC (BEAKER) (test code = 752) 30.9 GM/DL 32.3-36.5 L RED CELL DISTRIBUTION WIDTH (BEAKER) (test code = 412) 15.9 % 11.6-14.4 H PLATELET COUNT (BEAKER) (test code = 756) 307 K/CU MM 150-450 MEAN PLATELET VOLUME (BEAKER) (test code = 754) 11.8 fL 9.4-12 .4 NUCLEATED RED BLOOD CELLS (BEAKER) (test code = 413) 0 /100 WBC 0 -0 NEUTROPHILS RELATIVE PERCENT (BEAKER) (test code = 429) 83 % LYMPHOCYTES RELATIVE PERCENT (BEAKER) (test code = 430) 6 % MONOCYTES RELATIVE PERCENT (BEAKER) (test code = 431) 4 % EOSINOPHILS RELATIVE PERCENT (BEAKER) (test code = 432) 2 % BASOPHILS RELATIVE PERCENT (BEAKER) (test code = 437) 0 % NEUTROPHILS ABSOLUTE COUNT (BEAKER) (test code = 670) 28.79 K/ L 1.78-5.38 H LYMPHOCYTES ABSOLUTE COUNT (BEAKER) (test code = 414) 2.06 K/ L 1.32-3.57 MONOCYTES ABSOLUTE COUNT (BEAKER) (test code = 415) 1.55 K/ L 0. 30-0.82 H EOSINOPHILS ABSOLUTE COUNT (BEAKER) (test code = 416) 0.78 K/ L 0.04-0.54 H BASOPHILS ABSOLUTE COUNT (BEAKER) (test code = 417) 0.11 K/ L 0. 01-0.08 H IMMATURE GRANULOCYTES-RELATIVE PERCENT (BEAKER) (test code = 2801) 5 % 0-1 H CALCIUM, [id number] 04:29:00* Test Item Value Reference Range Interpretation Comments CALCIUM IONIZED (BEAKER) (test code = 698) 1.05 mmol/L 1.12-1.27 L PH, BLOOD (BEAKER) (test code = 1810) 7.42 BLOOD GAS, [id number] 04:25:00* Test Item Value Reference Range Interpretation Comments PH ARTERIAL (BEAKER) (test code = 383) 7.40 7.35-7.45 PCO2 ARTERIAL (BEAKER) (test code = 384) 55 mmHg 35-45 H PO2 ARTERIAL (BEAKER) (test code = 385) 146 mmHg 80-90 H O2 SATURATION ARTERIAL (BEAKER) (test code = 386) 98.7 % 96.0 -97.0 H HCO3 ARTERIAL (BEAKER) (test code = 388) 33 mmol/L 21-29 H BASE EXCESS ARTERIAL (BEAKER) (test code = 387) 7.4 mmol/L -2.0-3 .0 H PATIENT TEMPERATURE (BEAKER) (test code = 1818) 38.5 C FIO2 (BEAKER) (test code = 1819) 60.0 % BASIC METABOLIC [id number] 22:15:00* Test Item Value Reference Range Interpretation Comments SODIUM (BEAKER) (test code = 381) 149 meq/L 136-145 H POTASSIUM (BEAKER) (test code = 379) 4.1 meq/L 3.5-5.1 CHLORIDE (BEAKER) (test code = 382) 103 meq/L 98-107 CO2 (BEAKER) (test code = 355) 28 meq/L 22-29 BLOOD UREA NITROGEN (BEAKER) (test code = 354) 112 mg/dL 7-21 H CREATININE (BEAKER) (test code = 358) 3.24 mg/dL 0.57-1.25 H GLUCOSE RANDOM (BEAKER) (test code = 652) 216 mg/dL 70-105 H CALCIUM (BEAKER) (test code = 697) 8.9 mg/dL 8.4-10.2 EGFR (BEAKER) (test code = 1092) 21 mL/min/1.73 sq m ESTIMATED GFR IS NOT ACCURATE CREATININE CLEARANCE IN PREDICTING GLOMERULAR FILTRATION RATE. ESTIMATED GFR IS NOT APPLICABLE FOR DIALYSIS PATIENTS. [id number] 21:07:00* Test Item Value Reference Range Interpretation Comments MAGNESIUM (BEAKER) (test code = 627) 2.8 mg/dL 1.6-2.6 H Specimen slightly hemolyzed BASIC METABOLIC [id number] 18:32:00* Test Item Value Reference Range Interpretation Comments SODIUM (BEAKER) (test code = 381) 149 meq/L 136-145 H POTASSIUM (BEAKER) (test code = 379) 4.2 meq/L 3.5-5.1 CHLORIDE (BEAKER) (test code = 382) 103 meq/L 98-107 CO2 (BEAKER) (test code = 355) 32 meq/L 22-29 H BLOOD UREA NITROGEN (BEAKER) (test code = 354) 110 mg/dL 7-21 H CREATININE (BEAKER) (test code = 358) 3.36 mg/dL 0.57-1.25 H GLUCOSE RANDOM (BEAKER) (test code = 652) 211 mg/dL 70-105 H CALCIUM (BEAKER) (test code = 697) 9.2 mg/dL 8.4-10.2 EGFR (BEAKER) (test code = 1092) 21 mL/min/1.73 sq m ESTIMATED GFR IS NOT ACCURATE CREATININE CLEARANCE IN PREDICTING GLOMERULAR FILTRATION RATE. ESTIMATED GFR IS NOT APPLICABLE FOR DIALYSIS PATIENTS. Specimen markedly ictericBASIC METABOLIC [id number] 12:06:00* Test Item Value Reference Range Interpretation Comments SODIUM (BEAKER) (test code = 381) 149 meq/L 136-145 H POTASSIUM (BEAKER) (test code = 379) 4.3 meq/L 3.5-5.1 CHLORIDE (BEAKER) (test code = 382) 104 meq/L 98-107 CO2 (BEAKER) (test code = 355) 32 meq/L 22-29 H BLOOD UREA NITROGEN (BEAKER) (test code = 354) 107 mg/dL 7-21 H CREATININE (BEAKER) (test code = 358) 3.27 mg/dL 0.57-1.25 H GLUCOSE RANDOM (BEAKER) (test code = 652) 134 mg/dL 70-105 H CALCIUM (BEAKER) (test code = 697) 9.2 mg/dL 8.4-10.2 EGFR (BEAKER) (test code = 1092) 21 mL/min/1.73 sq m ESTIMATED GFR IS NOT ACCURATE CREATININE CLEARANCE IN PREDICTING GLOMERULAR FILTRATION RATE. ESTIMATED GFR IS NOT APPLICABLE FOR DIALYSIS PATIENTS. Specimen markedly [id number] 11:59:00* Test Item Value Reference Range Interpretation Comments MAGNESIUM (BEAKER) (test code = 627) 2.4 mg/dL 1.6-2.6 POCT-GLUCOSE [id number] 11:58:00* Test Item Value Reference Range Interpretation Comments POC-GLUCOSE METER (BEAKER) (test code = 1538) 143 mg/dL 70-110 H TESTED AT [facility] [address] [facility] [address] BRONCHIAL CULTURE + GRAM [id number] 09:24:00* Test Item Value Reference Range Interpretation Comments CULTURE (BEAKER) (test code = 1095) No growth GRAM STAIN RESULT (BEAKER) (test code = 1123) 1+ WBCs GRAM STAIN RESULT (BEAKER) (test code = 89607) No organisms seen SPUTUM CULTURE + GRAM [id number] 09:24:00* Test Item Value Reference Range Interpretation Comments CULTURE (BEAKER) (test code = 1095) No growth GRAM STAIN RESULT (BEAKER) (test code = 1123) 1+ WBCs GRAM STAIN RESULT (BEAKER) (test code = 87611) 10-15 epithelial dariel ls GRAM STAIN RESULT (BEAKER) (test code = 69629) <1+ gra m positive cocci in pairs and clusters CBC W/PLT COUNT & AUTO [id number] 08:22:00* Test Item Value Reference Range Interpretation Comments WHITE BLOOD CELL COUNT (BEAKER) (test code = 775) 28.1 K/ L 3.5- 10.5 H RED BLOOD CELL COUNT (BEAKER) (test code = 761) 2.12 M/ L 4.63-6 .08 L HEMOGLOBIN (BEAKER) (test code = 410) 7.5 GM/DL 13.7-17.5 L HEMATOCRIT (BEAKER) (test code = 411) 24.2 % 40.1-51.0 L MEAN CORPUSCULAR VOLUME (BEAKER) (test code = 753) 114.2 fL 79. 0-92.2 H MEAN CORPUSCULAR HEMOGLOBIN (BEAKER) (test code = 751) 35.4 pg 25.7-32.2 H MEAN CORPUSCULAR HEMOGLOBIN CONC (BEAKER) (test code = 752) 31.0 GM/DL 32.3-36.5 L RED CELL DISTRIBUTION WIDTH (BEAKER) (test code = 412) 15.4 % 11.6-14.4 H PLATELET COUNT (BEAKER) (test code = 756) 271 K/CU MM 150-450 MEAN PLATELET VOLUME (BEAKER) (test code = 754) 11.5 fL 9.4-12 .4 NUCLEATED RED BLOOD CELLS (BEAKER) (test code = 413) 0 /100 WBC 0 -0 (CELLAVISION MANUAL DIFF)2018-06-10 08:22:00* Test Item Value Reference Range Interpretation Comments NEUTROPHILS - REL (CELLAVISION)(BEAKER) (test code = 2816) 84 % LYMPHOCYTES - REL (CELLAVISION)(BEAKER) (test code = 2817) 3 % MONOCYTES - REL (CELLAVISION)(BEAKER) (test code = 2818) 7 % EOSINOPHILS - REL (CELLAVISION)(BEAKER) (test code = 2819) 2 % MYELOCYTES - REL (CELLAVISION)(BEAKER) (test code = 2822) 3 % 0-0 H NEUTROPHILS - ABS (CELLAVISION)(BEAKER) (test code = 2830) 23.60 K/ul 1.78-5.38 H LYMPHOCYTES - ABS (CELLAVISION)(BEAKER) (test code = 2831) 0.84 K/ul 1.32-3.57 L MONOCYTES - ABS (CELLAVISION)(BEAKER) (test code = 2832) 1.97 K/uL 0.30-0.82 H EOSINOPHILS - ABS (CELLAVISION)(BEAKER) (test code = 2834) 0.56 K/uL 0.04-0.54 H MYELOCYTES-ABS (CELLAVISION)(BEAKER) (test code = 2837) 0.84 K/uL 0.00-0.00 H TOTAL COUNTED (BEAKER) (test code = 1351) 100 MANUAL NRBC PER 100 CELLS (BEAKER) (test code = 1353) 1 /100 WBC 0-0 H PLT MORPHOLOGY (BEAKER) (test code = 486) Normal HYPERSEGMENTATION (CELLAVISION)(BEAKER) (test code = 3445) Present POLYCHROMATOPHILLIC RBCS(BEAKER) (test code = 478) 2+ moderate ANISOCYTOSIS (BEAKER) (test code = 961) 2+ moderate POIKILOCYTES (BEAKER) (test code = 966) 2+ moderate SPHEROCYTES (BEAKER) (test code = 768) 2+ moderate ELLIPTOCYTES (BEAKER) (test code = 962) 1+ few BASOPHILIC STIPPLING (BEAKER) (test code = 473) Present ARTIFACT (CELLAVISION)(BEAKER) (test code = 3432) Present PLATELET CONCENTRATION (CELLAVISION)(BEAKER) (test code = 3438) Cheryl quate Received comment: User comments: Slide comments: WBC: SEGMENTED WITH TOXIC GRANU LATION PRESENT PLT: LARGE PLATELETS SEEN RAD, CHEST, 1 VIEW, NON [id number] 08:07:00Reason for exam:->pulmonary edemaShould this be performed at the bedside?->YesFINAL REPORT Follow up Chest radiograph Clinical History: Pulmonary edemaComparison: June 09, 2018Views: One AP lordotic Chest x-ray:The cardiac and mediastinal silhouettes are unchanged. There is no evidence of a pneumothorax. There is no evidence of a pleural effusion. There is no evidence of overt cardiac failure. There is no evidence of a focal parenchymal opacity. An endotracheal tube nasogastric tube and feeding tube as well as a left internal jugular catheter are satisfactorily positioned and unchanged. Impression:Mild decrease in interstitial pulmonary edema Signed: Kai Rogeleport Verified Date/Time: 06/10/2018 08:07:52 Reading Location: [facility] Radiology Reading Room -GLUCOSE [id number] 05:31:00* Test Item Value Reference Range Interpretation Comments POC-GLUCOSE METER (BEAKER) (test code = 1538) 124 mg/dL 70-110 H TESTED AT [facility] [address] [facility] [address] BASIC METABOLIC [id number] 04:24:00* Test Item Value Reference Range Interpretation Comments SODIUM (BEAKER) (test code = 381) 147 meq/L 136-145 H POTASSIUM (BEAKER) (test code = 379) 4.3 meq/L 3.5-5.1 CHLORIDE (BEAKER) (test code = 382) 103 meq/L 98-107 CO2 (BEAKER) (test code = 355) 31 meq/L 22-29 H BLOOD UREA NITROGEN (BEAKER) (test code = 354) 102 mg/dL 7-21 H CREATININE (BEAKER) (test code = 358) 3.19 mg/dL 0.57-1.25 H GLUCOSE RANDOM (BEAKER) (test code = 652) 122 mg/dL 70-105 H CALCIUM (BEAKER) (test code = 697) 9.4 mg/dL 8.4-10.2 EGFR (BEAKER) (test code = 1092) 22 mL/min/1.73 sq m ESTIMATED GFR IS NOT ACCURATE CREATININE CLEARANCE IN PREDICTING GLOMERULAR FILTRATION RATE. ESTIMATED GFR IS NOT APPLICABLE FOR DIALYSIS PATIENTS. Specimen markedly [id number] 04:16:00* Test Item Value Reference Range Interpretation Comments PARTIAL THROMBOPLASTIN TIME (BEAKER) (test code = 760) 47.0 seconds 22.5-36.0 H PROTHROMBIN TIME/[id number] 04:15:00* Test Item Value Reference Range Interpretation Comments PROTIME (BEAKER) (test code = 759) 16.9 seconds 11.7-14.7 H INR (BEAKER) (test code = 370) 1.3 <=5.9 RECOMMENDED COUMADIN/WARFARIN INR THERAPY RANGESSTANDARD DOSE: 2.0 - 3.0 Inclu herb: PROPHYLAXIS for venous thrombosis, systemic embolization; TREATMENT for giulia ous thrombosis and/or pulmonary embolus.HIGH RISK: Target INR is 2.5-3.5 for pat ients with mechanical heart valves.[id number] 04:12:00* Test Item Value Reference Range Interpretation Comments MAGNESIUM (BEAKER) (test code = 627) 2.5 mg/dL 1.6-2.6 HEPATIC FUNCTION [id number] 04:12:00* Test Item Value Reference Range Interpretation Comments TOTAL PROTEIN (BEAKER) (test code = 770) 6.2 gm/dL 6.0-8.3 ALBUMIN (BEAKER) (test code = 1145) 2.6 g/dL 3.5-5.0 L BILIRUBIN TOTAL (BEAKER) (test code = 377) 14.9 mg/dL 0.2-1.2 H BILIRUBIN DIRECT (BEAKER) (test code = 706) 11.3 mg/dL 0.1-0.5 H ALKALINE PHOSPHATASE (BEAKER) (test code = 346) 125 U/L 40-150 AST (SGOT) (BEAKER) (test code = 353) 263 U/L 5-34 H ALT (SGPT) (BEAKER) (test code = 347) 121 U/L 6-55 H Specimen markedly ictericLACTIC ACID, [id number] 03:59:00* Test Item Value Reference Range Interpretation Comments LACTATE BLOOD ARTERIAL (2) (BEAKER) (test code = 2874) 0.9 mmol/L 0.5-2.2 Specimen markedly ictericBLOOD GAS, [id number] 03:21:00* Test Item Value Reference Range Interpretation Comments PH ARTERIAL (BEAKER) (test code = 383) 7.42 7.35-7.45 PCO2 ARTERIAL (BEAKER) (test code = 384) 53 mmHg 35-45 H PO2 ARTERIAL (BEAKER) (test code = 385) 118 mmHg 80-90 H O2 SATURATION ARTERIAL (BEAKER) (test code = 386) 98.1 % 96.0 -97.0 H HCO3 ARTERIAL (BEAKER) (test code = 388) 33 mmol/L 21-29 H BASE EXCESS ARTERIAL (BEAKER) (test code = 387) 8.0 mmol/L -2.0-3 .0 H PATIENT TEMPERATURE (BEAKER) (test code = 1818) 38.0 C FIO2 (BEAKER) (test code = 1819) 60.0 % CALCIUM, [id number] 03:19:00* Test Item Value Reference Range Interpretation Comments CALCIUM IONIZED (BEAKER) (test code = 698) 1.12 mmol/L 1.12-1.27 PH, BLOOD (BEAKER) (test code = 1810) 7.44 Check serum Ionized Calcium level after 4 hours after IV Calcium replacement. BASIC METABOLIC [id number] 00:53:00* Test Item Value Reference Range Interpretation Comments SODIUM (BEAKER) (test code = 381) 146 meq/L 136-145 H POTASSIUM (BEAKER) (test code = 379) 4.5 meq/L 3.5-5.1 CHLORIDE (BEAKER) (test code = 382) 102 meq/L 98-107 CO2 (BEAKER) (test code = 355) 31 meq/L 22-29 H BLOOD UREA NITROGEN (BEAKER) (test code = 354) 101 mg/dL 7-21 H CREATININE (BEAKER) (test code = 358) 3.14 mg/dL 0.57-1.25 H GLUCOSE RANDOM (BEAKER) (test code = 652) 158 mg/dL 70-105 H CALCIUM (BEAKER) (test code = 697) 9.4 mg/dL 8.4-10.2 EGFR (BEAKER) (test code = 1092) 22 mL/min/1.73 sq m ESTIMATED GFR IS NOT ACCURATE CREATININE CLEARANCE IN PREDICTING GLOMERULAR FILTRATION RATE. ESTIMATED GFR IS NOT APPLICABLE FOR DIALYSIS PATIENTS. Specimen markedly ictericPOCT-GLUCOSE [id number] 00:29:00* Test Item Value Reference Range Interpretation Comments POC-GLUCOSE METER (BEAKER) (test code = 1538) 176 mg/dL 70-110 H TESTED AT [facility] [address] [facility] [address] POCT-GLUCOSE [id number] 21:27:00* Test Item Value Reference Range Interpretation Comments POC-GLUCOSE METER (BEAKER) (test code = 1538) 134 mg/dL 70-110 H TESTED AT [address] [address] [id number] 20:56:00* Test Item Value Reference Range Interpretation Comments MAGNESIUM (BEAKER) (test code = 627) 2.2 mg/dL 1.6-2.6 CALCIUM, [id number] 20:46:00* Test Item Value Reference Range Interpretation Comments CALCIUM IONIZED (BEAKER) (test code = 698) 1.08 mmol/L 1.12-1.27 L PH, BLOOD (BEAKER) (test code = 1810) 7.44 BLOOD GAS, [id number] 20:46:00* Test Item Value Reference Range Interpretation Comments PH ARTERIAL (BEAKER) (test code = 383) 7.44 7.35-7.45 PCO2 ARTERIAL (BEAKER) (test code = 384) 50 mmHg 35-45 H PO2 ARTERIAL (BEAKER) (test code = 385) 112 mmHg 80-90 H O2 SATURATION ARTERIAL (BEAKER) (test code = 386) 98.1 % 96.0 -97.0 H HCO3 ARTERIAL (BEAKER) (test code = 388) 33 mmol/L 21-29 H BASE EXCESS ARTERIAL (BEAKER) (test code = 387) 7.6 mmol/L -2.0-3 .0 H PATIENT TEMPERATURE (BEAKER) (test code = 1818) 37.4 C FIO2 (BEAKER) (test code = 1819) 60.0 % POCT-GLUCOSE [id number] 20:20:00* Test Item Value Reference Range Interpretation Comments POC-GLUCOSE METER (BEAKER) (test code = 1538) 142 mg/dL 70-110 H TESTED AT [address] [address] BASIC METABOLIC [id number] 18:55:00* Test Item Value Reference Range Interpretation Comments SODIUM (BEAKER) (test code = 381) 148 meq/L 136-145 H POTASSIUM (BEAKER) (test code = 379) 4.3 meq/L 3.5-5.1 CHLORIDE (BEAKER) (test code = 382) 103 meq/L 98-107 CO2 (BEAKER) (test code = 355) 31 meq/L 22-29 H BLOOD UREA NITROGEN (BEAKER) (test code = 354) 97 mg/dL 7-21 H CREATININE (BEAKER) (test code = 358) 3.11 mg/dL 0.57-1.25 H GLUCOSE RANDOM (BEAKER) (test code = 652) 134 mg/dL 70-105 H CALCIUM (BEAKER) (test code = 697) 9.3 mg/dL 8.4-10.2 EGFR (BEAKER) (test code = 1092) 22 mL/min/1.73 sq m ESTIMATED GFR IS NOT ACCURATE CREATININE CLEARANCE IN PREDICTING GLOMERULAR FILTRATION RATE. ESTIMATED GFR IS NOT APPLICABLE FOR DIALYSIS PATIENTS. Specimen markedly ictericRAD, ABDOMEN/KUB, 1 VIEW [id number] 17:56:00Reason for exam:->feeding tube placement.FINAL REPORT CLINICAL HISTORY: Feeding tube placement COMPARISON: 06/04/2018 FINDINGS: A single supine view the abdomen is submitted. The tip of a feeding tube overlies expected position of the distal stomach/proximal duodenum. Advancement is recommended if definitive placement in the duodenum is intended. The visualized abdominal bowel gas pattern is unobstructed. There is no acute bony abnormality. Signed: Katherine Reich MDReport Verified Date/Time: 06/09/2018 17:56:44 Reading Location: [address] Reading Room -GLUCOSE [id number] 17:49:00* Test Item Value Reference Range Interpretation Comments POC-GLUCOSE METER (BEAKER) (test code = 1538) 131 mg/dL 70-110 H TESTED AT [place] [id number] [facility] [address] POCT-GLUCOSE [id number] 16:36:00* Test Item Value Reference Range Interpretation Comments POC-GLUCOSE METER (BEAKER) (test code = 1538) 112 mg/dL 70-110 H TESTED AT [place] [id number] [facility] [address] POCT-GLUCOSE [id number] 14:37:00* Test Item Value Reference Range Interpretation Comments POC-GLUCOSE METER (BEAKER) (test code = 1538) 88 mg/dL 70-110 TESTED AT [place] [id number] [facility] [address] POCT-GLUCOSE [id number] 12:48:00* Test Item Value Reference Range Interpretation Comments POC-GLUCOSE METER (BEAKER) (test code = 1538) 104 mg/dL 70-110 TESTED AT [facility] [address] [facility] [address] [id number] 12:46:00* Test Item Value Reference Range Interpretation Comments MAGNESIUM (BEAKER) (test code = 627) 2.3 mg/dL 1.6-2.6 BASIC METABOLIC [id number] 12:46:00* Test Item Value Reference Range Interpretation Comments SODIUM (BEAKER) (test code = 381) 150 meq/L 136-145 H POTASSIUM (BEAKER) (test code = 379) 3.4 meq/L 3.5-5.1 L CHLORIDE (BEAKER) (test code = 382) 103 meq/L 98-107 CO2 (BEAKER) (test code = 355) 35 meq/L 22-29 H BLOOD UREA NITROGEN (BEAKER) (test code = 354) 98 mg/dL 7-21 H CREATININE (BEAKER) (test code = 358) 2.72 mg/dL 0.57-1.25 H GLUCOSE RANDOM (BEAKER) (test code = 652) 105 mg/dL 70-105 CALCIUM (BEAKER) (test code = 697) 9.7 mg/dL 8.4-10.2 EGFR (BEAKER) (test code = 1092) 26 mL/min/1.73 sq m ESTIMATED GFR IS NOT ACCURATE CREATININE CLEARANCE IN PREDICTING GLOMERULAR FILTRATION RATE. ESTIMATED GFR IS NOT APPLICABLE FOR DIALYSIS PATIENTS. HEMOGLOBIN AND [id number] 11:59:00* Test Item Value Reference Range Interpretation Comments HEMOGLOBIN (BEAKER) (test code = 410) 8.0 GM/DL 13.7-17.5 L HEMATOCRIT (BEAKER) (test code = 411) 24.8 % 40.1-51.0 L BLOOD GAS, [id number] 11:29:00* Test Item Value Reference Range Interpretation Comments PH ARTERIAL (BEAKER) (test code = 383) 7.50 7.35-7.45 H PCO2 ARTERIAL (BEAKER) (test code = 384) 47 mmHg 35-45 H PO2 ARTERIAL (BEAKER) (test code = 385) 85 mmHg 80-90 O2 SATURATION ARTERIAL (BEAKER) (test code = 386) 97.0 % 96.0 -97.0 HCO3 ARTERIAL (BEAKER) (test code = 388) 35 mmol/L 21-29 H BASE EXCESS ARTERIAL (BEAKER) (test code = 387) 11.0 mmol/L -2.0-3 .0 H PATIENT TEMPERATURE (BEAKER) (test code = 1818) 37.0 C FIO2 (BEAKER) (test code = 1819) 60.0 % BASIC METABOLIC [id number] 07:54:00* Test Item Value Reference Range Interpretation Comments SODIUM (BEAKER) (test code = 381) 149 meq/L 136-145 H POTASSIUM (BEAKER) (test code = 379) 3.2 meq/L 3.5-5.1 L CHLORIDE (BEAKER) (test code = 382) 103 meq/L 98-107 CO2 (BEAKER) (test code = 355) 32 meq/L 22-29 H BLOOD UREA NITROGEN (BEAKER) (test code = 354) 96 mg/dL 7-21 H CREATININE (BEAKER) (test code = 358) 2.78 mg/dL 0.57-1.25 H GLUCOSE RANDOM (BEAKER) (test code = 652) 125 mg/dL 70-105 H CALCIUM (BEAKER) (test code = 697) 9.8 mg/dL 8.4-10.2 EGFR (BEAKER) (test code = 1092) 26 mL/min/1.73 sq m ESTIMATED GFR IS NOT ACCURATE CREATININE CLEARANCE IN PREDICTING GLOMERULAR FILTRATION RATE. ESTIMATED GFR IS NOT APPLICABLE FOR DIALYSIS PATIENTS. Specimen markedly ictericBLOOD GAS, [id number] 06:45:00* Test Item Value Reference Range Interpretation Comments PH ARTERIAL (BEAKER) (test code = 383) 7.56 7.35-7.45 H PCO2 ARTERIAL (BEAKER) (test code = 384) 38 mmHg 35-45 PO2 ARTERIAL (BEAKER) (test code = 385) 161 mmHg 80-90 H O2 SATURATION ARTERIAL (BEAKER) (test code = 386) 99.3 % 96.0 -97.0 H HCO3 ARTERIAL (BEAKER) (test code = 388) 33 mmol/L 21-29 H BASE EXCESS ARTERIAL (BEAKER) (test code = 387) 9.8 mmol/L -2.0-3 .0 H PATIENT TEMPERATURE (BEAKER) (test code = 1818) 36.8 C FIO2 (BEAKER) (test code = 1819) 75.0 % BASIC METABOLIC [id number] 06:44:00* Test Item Value Reference Range Interpretation Comments SODIUM (BEAKER) (test code = 381) 149 meq/L 136-145 H POTASSIUM (BEAKER) (test code = 379) 3.0 meq/L 3.5-5.1 L CHLORIDE (BEAKER) (test code = 382) 101 meq/L 98-107 CO2 (BEAKER) (test code = 355) 31 meq/L 22-29 H BLOOD UREA NITROGEN (BEAKER) (test code = 354) 96 mg/dL 7-21 H CREATININE (BEAKER) (test code = 358) 2.80 mg/dL 0.57-1.25 H GLUCOSE RANDOM (BEAKER) (test code = 652) 143 mg/dL 70-105 H CALCIUM (BEAKER) (test code = 697) 9.7 mg/dL 8.4-10.2 EGFR (BEAKER) (test code = 1092) 25 mL/min/1.73 sq m ESTIMATED GFR IS NOT ACCURATE CREATININE CLEARANCE IN PREDICTING GLOMERULAR FILTRATION RATE. ESTIMATED GFR IS NOT APPLICABLE FOR DIALYSIS PATIENTS. Specimen markedly ictericPOCT-GLUCOSE [id number] 06:22:00* Test Item Value Reference Range Interpretation Comments POC-GLUCOSE METER (BEAKER) (test code = 1538) 145 mg/dL 70-110 H TESTED AT [facility] [address] [place] [address] [id number] 06:17:00* Test Item Value Reference Range Interpretation Comments MAGNESIUM (BEAKER) (test code = 627) 2.2 mg/dL 1.6-2.6 HEPATIC FUNCTION [id number] 06:17:00* Test Item Value Reference Range Interpretation Comments TOTAL PROTEIN (BEAKER) (test code = 770) 6.2 gm/dL 6.0-8.3 ALBUMIN (BEAKER) (test code = 1145) 2.6 g/dL 3.5-5.0 L BILIRUBIN TOTAL (BEAKER) (test code = 377) 19.0 mg/dL 0.2-1.2 H BILIRUBIN DIRECT (BEAKER) (test code = 706) 13.8 mg/dL 0.1-0.5 H ALKALINE PHOSPHATASE (BEAKER) (test code = 346) 119 U/L 40-150 AST (SGOT) (BEAKER) (test code = 353) 205 U/L 5-34 H ALT (SGPT) (BEAKER) (test code = 347) 109 U/L 6-55 H Specimen markedly ictericBLOOD GAS, [id number] 06:04:00* Test Item Value Reference Range Interpretation Comments PH ARTERIAL (BEAKER) (test code = 383) 7.51 7.35-7.45 H PCO2 ARTERIAL (BEAKER) (test code = 384) 43 mmHg 35-45 PO2 ARTERIAL (BEAKER) (test code = 385) 82 mmHg 80-90 O2 SATURATION ARTERIAL (BEAKER) (test code = 386) 96.9 % 96.0 -97.0 HCO3 ARTERIAL (BEAKER) (test code = 388) 34 mmol/L 21-29 H BASE EXCESS ARTERIAL (BEAKER) (test code = 387) 9.7 mmol/L -2.0-3 .0 H PATIENT TEMPERATURE (BEAKER) (test code = 1818) 36.8 C FIO2 (BEAKER) (test code = 1819) 75.0 % RAD, CHEST, 1 VIEW, NON [id number] 05:48:00Reason for exam:->pulmonary edemaShould this be performed at the bedside?->YesFINAL REPORT RAD, CHEST, 1 VIEW, NON DEPT INDICATION: pulmonary edema COMPARISON: Prior day's exam FINDINGS: Portable frontal view of the chest. IMPRESSION: Support Lines: Stable. No evidence of malpositioningLungs and pleura: Unchanged bilateral airspace opacities concerning for multifocal edema, multifocal infection and/or ARDS No pneumothorax.Heart and mediastinum: Stable contours. DiscretionAdditional findings: None. Signed: Adri Avendaño MDReport Verified Date/Time: 06/09/2018 05:48:52 Reading Location: [address] Neuro Reading Room D GAS, [id number] 04:53:00* Test Item Value Reference Range Interpretation Comments PH ARTERIAL (BEAKER) (test code = 383) 7.59 7.35-7.45 H PCO2 ARTERIAL (BEAKER) (test code = 384) 35 mmHg 35-45 PO2 ARTERIAL (BEAKER) (test code = 385) 114 mmHg 80-90 H O2 SATURATION ARTERIAL (BEAKER) (test code = 386) 98.7 % 96.0 -97.0 H HCO3 ARTERIAL (BEAKER) (test code = 388) 32 mmol/L 21-29 H BASE EXCESS ARTERIAL (BEAKER) (test code = 387) 9.9 mmol/L -2.0-3 .0 H PATIENT TEMPERATURE (BEAKER) (test code = 1818) 36.7 C FIO2 (BEAKER) (test code = 1819) 75.0 % CALCIUM, [id number] 04:52:00* Test Item Value Reference Range Interpretation Comments CALCIUM IONIZED (BEAKER) (test code = 698) 1.08 mmol/L 1.12-1.27 L PH, BLOOD (BEAKER) (test code = 1810) 7.55 POCT-GLUCOSE [id number] 04:32:00* Test Item Value Reference Range Interpretation Comments POC-GLUCOSE METER (BEAKER) (test code = 1538) 144 mg/dL 70-110 H TESTED AT [address] [address] CBC W/PLT COUNT & AUTO [id number] 04:27:00* Test Item Value Reference Range Interpretation Comments WHITE BLOOD CELL COUNT (BEAKER) (test code = 775) 28.6 K/ L 3.5- 10.5 H RED BLOOD CELL COUNT (BEAKER) (test code = 761) 2.27 M/ L 4.63-6 .08 L HEMOGLOBIN (BEAKER) (test code = 410) 8.0 GM/DL 13.7-17.5 L HEMATOCRIT (BEAKER) (test code = 411) 24.7 % 40.1-51.0 L MEAN CORPUSCULAR VOLUME (BEAKER) (test code = 753) 108.8 fL 79. 0-92.2 H MEAN CORPUSCULAR HEMOGLOBIN (BEAKER) (test code = 751) 35.2 pg 25.7-32.2 H MEAN CORPUSCULAR HEMOGLOBIN CONC (BEAKER) (test code = 752) 32.4 GM/DL 32.3-36.5 RED CELL DISTRIBUTION WIDTH (BEAKER) (test code = 412) 15.1 % 11.6-14.4 H PLATELET COUNT (BEAKER) (test code = 756) 253 K/CU MM 150-450 MEAN PLATELET VOLUME (BEAKER) (test code = 754) 11.3 fL 9.4-12 .4 NUCLEATED RED BLOOD CELLS (BEAKER) (test code = 413) 0 /100 WBC 0 -0 NEUTROPHILS RELATIVE PERCENT (BEAKER) (test code = 429) 86 % LYMPHOCYTES RELATIVE PERCENT (BEAKER) (test code = 430) 6 % MONOCYTES RELATIVE PERCENT (BEAKER) (test code = 431) 4 % EOSINOPHILS RELATIVE PERCENT (BEAKER) (test code = 432) 1 % BASOPHILS RELATIVE PERCENT (BEAKER) (test code = 437) 0 % NEUTROPHILS ABSOLUTE COUNT (BEAKER) (test code = 670) 24.56 K/ L 1.78-5.38 H LYMPHOCYTES ABSOLUTE COUNT (BEAKER) (test code = 414) 1.56 K/ L 1.32-3.57 MONOCYTES ABSOLUTE COUNT (BEAKER) (test code = 415) 1.23 K/ L 0. 30-0.82 H EOSINOPHILS ABSOLUTE COUNT (BEAKER) (test code = 416) 0.19 K/ L 0.04-0.54 BASOPHILS ABSOLUTE COUNT (BEAKER) (test code = 417) 0.08 K/ L 0. 01-0.08 IMMATURE GRANULOCYTES-RELATIVE PERCENT (BEAKER) (test code = 2801) 3 % 0-1 H [id number] 04:21:00* Test Item Value Reference Range Interpretation Comments PARTIAL THROMBOPLASTIN TIME (BEAKER) (test code = 760) 49.5 seconds 22.5-36.0 H PROTHROMBIN [id number] 04:20:00* Test Item Value Reference Range Interpretation Comments PROTIME (BEAKER) (test code = 759) 17.8 seconds 11.7-14.7 H INR (BEAKER) (test code = 370) 1.5 <=5.9 RECOMMENDED COUMADIN/WARFARIN INR THERAPY RANGESSTANDARD DOSE: 2.0 - 3.0 Inclu herb: PROPHYLAXIS for venous thrombosis, systemic embolization; TREATMENT for giulia ous thrombosis and/or pulmonary embolus.HIGH RISK: Target INR is 2.5-3.5 for pat ients with mechanical heart valves.POCT-GLUCOSE [id number] 03:44:00* Test Item Value Reference Range Interpretation Comments POC-GLUCOSE METER (BEAKER) (test code = 1538) 147 mg/dL 70-110 H TESTED AT [address] [address] BASIC METABOLIC [id number] 03:13:00* Test Item Value Reference Range Interpretation Comments SODIUM (BEAKER) (test code = 381) 148 meq/L 136-145 H POTASSIUM (BEAKER) (test code = 379) 3.4 meq/L 3.5-5.1 L CHLORIDE (BEAKER) (test code = 382) 100 meq/L 98-107 CO2 (BEAKER) (test code = 355) 30 meq/L 22-29 H BLOOD UREA NITROGEN (BEAKER) (test code = 354) 100 mg/dL 7-21 H CREATININE (BEAKER) (test code = 358) 2.98 mg/dL 0.57-1.25 H GLUCOSE RANDOM (BEAKER) (test code = 652) 154 mg/dL 70-105 H CALCIUM (BEAKER) (test code = 697) 9.4 mg/dL 8.4-10.2 EGFR (BEAKER) (test code = 1092) 24 mL/min/1.73 sq m ESTIMATED GFR IS NOT ACCURATE CREATININE CLEARANCE IN PREDICTING GLOMERULAR FILTRATION RATE. ESTIMATED GFR IS NOT APPLICABLE FOR DIALYSIS PATIENTS. Specimen markedly ictericPOCT-GLUCOSE [id number] 02:34:00* Test Item Value Reference Range Interpretation Comments POC-GLUCOSE METER (BEAKER) (test code = 1538) 158 mg/dL 70-110 H TESTED AT [address] [address] POCT-GLUCOSE [id number] 01:37:00* Test Item Value Reference Range Interpretation Comments POC-GLUCOSE METER (BEAKER) (test code = 1538) 158 mg/dL 70-110 H TESTED AT [address] [address] POCT-GLUCOSE [id number] 23:59:00* Test Item Value Reference Range Interpretation Comments POC-GLUCOSE METER (BEAKER) (test code = 1538) 150 mg/dL 70-110 H TESTED AT [address] [address] [id number] 22:28:00* Test Item Value Reference Range Interpretation Comments MAGNESIUM (BEAKER) (test code = 627) 2.4 mg/dL 1.6-2.6 Specimen slightly hemolyzed Check Serum Potassium level 2 hours after oral potassium replacement completed o r 30 min after intravenous potassium replacement.[id number] 21:44:00* Test Item Value Reference Range Interpretation Comments POTASSIUM (BEAKER) (test code = 379) 3.6 meq/L 3.5-5.1 Specimen slightly hemolyzed Check Serum Potassium level 2 hours after oral potassium replacement completed o r 30 min after intravenous potassium replacement.CALCIUM, [id number] 21:20:00* Test Item Value Reference Range Interpretation Comments CALCIUM IONIZED (BEAKER) (test code = 698) 1.06 mmol/L 1.12-1.27 L PH, BLOOD (BEAKER) (test code = 1810) 7.52 Check serum Ionized Calcium level after 4 hours after IV Calcium replacement. BASIC METABOLIC [id number] 20:46:00* Test Item Value Reference Range Interpretation Comments SODIUM (BEAKER) (test code = 381) 147 meq/L 136-145 H POTASSIUM (BEAKER) (test code = 379) 3.6 meq/L 3.5-5.1 CHLORIDE (BEAKER) (test code = 382) 100 meq/L 98-107 CO2 (BEAKER) (test code = 355) 33 meq/L 22-29 H BLOOD UREA NITROGEN (BEAKER) (test code = 354) 97 mg/dL 7-21 H CREATININE (BEAKER) (test code = 358) 2.94 mg/dL 0.57-1.25 H GLUCOSE RANDOM (BEAKER) (test code = 652) 142 mg/dL 70-105 H CALCIUM (BEAKER) (test code = 697) 9.7 mg/dL 8.4-10.2 EGFR (BEAKER) (test code = 1092) 24 mL/min/1.73 sq m ESTIMATED GFR IS NOT ACCURATE CREATININE CLEARANCE IN PREDICTING GLOMERULAR FILTRATION RATE. ESTIMATED GFR IS NOT APPLICABLE FOR DIALYSIS PATIENTS. Specimen markedly ictericPOCT-GLUCOSE [id number] 20:42:00* Test Item Value Reference Range Interpretation Comments POC-GLUCOSE METER (BEAKER) (test code = 1538) 158 mg/dL 70-110 H TESTED AT [facility] [address] [facility] [address] BLOOD [id number] 20:01:00* Test Item Value Reference Range Interpretation Comments CULTURE (BEAKER) (test code = 1095) No growth in 5 days BLOOD [id number] 20:01:00* Test Item Value Reference Range Interpretation Comments CULTURE (BEAKER) (test code = 1095) No growth in 5 days BLOOD GAS, [id number] 18:23:00* Test Item Value Reference Range Interpretation Comments PH ARTERIAL (BEAKER) (test code = 383) 7.49 7.35-7.45 H PCO2 ARTERIAL (BEAKER) (test code = 384) 46 mmHg 35-45 H PO2 ARTERIAL (BEAKER) (test code = 385) 92 mmHg 80-90 H O2 SATURATION ARTERIAL (BEAKER) (test code = 386) 97.2 % 96.0 -97.0 H HCO3 ARTERIAL (BEAKER) (test code = 388) 34 mmol/L 21-29 H BASE EXCESS ARTERIAL (BEAKER) (test code = 387) 9.9 mmol/L -2.0-3 .0 H PATIENT TEMPERATURE (BEAKER) (test code = 1818) 38.0 C FIO2 (BEAKER) (test code = 1819) 75.0 % POCT-GLUCOSE [id number] 18:21:00* Test Item Value Reference Range Interpretation Comments POC-GLUCOSE METER (BEAKER) (test code = 1538) 145 mg/dL 70-110 H TESTED AT [facility] [address] [facility] [address] POCT-GLUCOSE [id number] 18:21:00* Test Item Value Reference Range Interpretation Comments POC-GLUCOSE METER (BEAKER) (test code = 1538) 122 mg/dL 70-110 H TESTED AT [place] [id number] [facility] [address] CORTISOL,60 [id number] 18:04:00* Test Item Value Reference Range Interpretation Comments CORTISOL BASELINE NETWORKED (BEAKER) (test code = 2307) 17.6 mcg/dL CORTISOL 30 MINUTE NETWORKED (BEAKER) (test code = 2308) 24.7 mcg/d L CORTISOL, 60 MINUTE (BEAKER) (test code = 1805) 25.5 ug/dL ACTH STIMULATION TEST INTERPRETATION GUIDELINES(Synonyms: Cortrosyn Test, Co syntropin or Corticotropin Stimulation Test)Adenocorticotropic hormone (ACTH)is a tropic hormone, made in the pituitary gland, which travels trhough the bloodst ream and stimulates the cortex of the adrenal glands to release cortisol. Cortis ol is a primary hormone, which aids the body's metabolism of fats, carbohydrates , and protein as well as sodium and potassium regulation.ACTH Stimulation Test: Exogenous administration of biologically active ACTH stimulates the secretion of cortisol from the adrenal gland. This test is used to evaluate adrenal function by measuring cortisol levels at baseline and at 30 and 60 minutes after the adm inistration of 250 micrograms of cosyntropin (Cortrosyn). Patients who have rece ived exogenous corticosteroids immediately prior to performing the ACTH Stimulat ion Test will often have elevated baseline cortisol levels, which may lead to er roneous interpretation of test results. The notable exception is with dexamethas one.Normal Response: An increase in cortisol after stimulation by ACTH is normal . Post-stimulation cortisol concentration should be greater than 20 mcg/dL or th e rate of rise from baseline cortisol should be greater than or equal to 9 mcg/d L.Patients with sepsis or septic shock: According to a study by Debbie et al ([facility] 2000,283(8):0197-45), the ACTH Stimulation Test provides important prognostic information. This study defined 3 groups of patients with sepsis or septic shoc k: 1. Good Survival: Low basal cortisol (<or=34 mcg/dL) and high ACTH response (>9mcg/dL) 2. Intermediate Survival: Low basal cortisol (<34 mcg/dL) and low response to ACTH (<or=9 mcg/dL) OR High basal cortisol (>34 mcg/dL) or high ACTH response (>9 mcg/dL) 3. Poor Survival: High basal cortisol (>34 mcg/dL) and low ACTH response (<or=9 mcg/dL).Treatment of patients with relative adrenal dysfunction may be indicated based on test results and the clinical condition of the patient. Additional information, including treatment recommendations, is available in critically ill patients, approved by the Pharmacy, Nutrition, and Therapeutics Committee on 02/05/2004 and available through the Pharmacy Policy and Procedure Section on The Source.Do not run this test if systemic hydrocortisone, methylprednisolone, prednisolone or prednisone has been administered within the past 24 hours. Draw baseline cortisol level just prior to cosyntropin administration. Administer cosyntropin 0.25 mg diluted in 2-5 mL of normal saline slow IV Push over a period of 2 minutes. Draw serum cortisol level 30 minutes after cosyntropin administration. Draw serum cortisol level 60 minutes after cosyntropin administration. CORTISOL,30 [id number] 17:15:00* Test Item Value Reference Range Interpretation Comments CORTISOL BASELINE NETWORKED ([facility]) (test code = 2307) 17.6 mcg/dL CORTISOL, 30 MINUTE (BEAKER) (test code = 1804) 24.7 ug/dL ACTH STIMULATION TEST INTERPRETATION GUIDELINES(Synonyms: Cortrosyn Test, Co syntropin or Corticotropin Stimulation Test)Adenocorticotropic hormone (ACTH)is a tropic hormone, made in the pituitary gland, which travels trhough the bloodst ream and stimulates the cortex of the adrenal glands to release cortisol. Cortis ol is a primary hormone, which aids the body's metabolism of fats, carbohydrates , and protein as well as sodium and potassium regulation.ACTH Stimulation Test: Exogenous administration of biologically active ACTH stimulates the secretion of cortisol from the adrenal gland. This test is used to evaluate adrenal function by measuring cortisol levels at baseline and at 30 and 60 minutes after the adm inistration of 250 micrograms of cosyntropin (Cortrosyn). Patients who have rece ived exogenous corticosteroids immediately prior to performing the ACTH Stimulat ion Test will often have elevated baseline cortisol levels, which may lead to er roneous interpretation of test results. The notable exception is with dexamethas one.Normal Response: An increase in cortisol after stimulation by ACTH is normal . Post-stimulation cortisol concentration should be greater than 20 mcg/dL or th e rate of rise from baseline cortisol should be greater than or equal to 9 mcg/d L.Patients with sepsis or septic shock: According to a study by Debbie et al ([facility] 2000,283(8):7980-45), the ACTH Stimulation Test provides important prognostic information. This study defined 3 groups of patients with sepsis or septic shoc k: 1. Good Survival: Low basal cortisol (<or=34 mcg/dL) and high ACTH response (>9mcg/dL) 2. Intermediate Survival: Low basal cortisol (<34 mcg/dL) and low response to ACTH (<or=9 mcg/dL) OR High basal cortisol (>34 mcg/dL) or high ACTH response (>9 mcg/dL) 3. Poor Survival: High basal cortisol (>34 mcg/dL) and low ACTH response (<or=9 mcg/dL).Treatment of patients with relative adrenal dysfunction may be indicated based on test results and the clinical condition of the patient. Additional information, including treatment recommendations, is available in critically ill patients, approved by the Pharmacy, Nutrition, and Therapeutics Committee on 02/05/2004 and available through the Pharmacy Policy and Procedure Section on The Source.Do not run this test if systemic hydrocortisone, methylprednisolone, prednisolone or prednisone has been administered within the past 24 hours. Draw baseline cortisol level just prior to cosyntropin administration. Administer cosyntropin 0.25 mg diluted in 2-5 mL of normal saline slow IV Push over a period of 2 minutes. Draw serum cortisol level 30 minutes after cosyntropin administration. Draw serum cortisol level 60 minutes after cosyntropin administration.POCT- GLUCOSE [id number] 15:59:00* Test Item Value Reference Range Interpretation Comments POC-GLUCOSE METER (BEAKER) (test code = 1538) 162 mg/dL 70-110 H TESTED AT [facility] [address] [facility] [address] CORTISOL,[id number] 14:41:00* Test Item Value Reference Range Interpretation Comments CORTISOL, BASELINE (BEAKER) (test code = 1803) 17.6 ug/dL ACTH STIMULATION TEST INTERPRETATION GUIDELINES(Synonyms: Cortrosyn Test, Co syntropin or Corticotropin Stimulation Test)Adenocorticotropic hormone (ACTH)is a tropic hormone, made in the pituitary gland, which travels trhough the bloodst ream and stimulates the cortex of the adrenal glands to release cortisol. Cortis ol is a primary hormone, which aids the body's metabolism of fats, carbohydrates , and protein as well as sodium and potassium regulation.ACTH Stimulation Test: Exogenous administration of biologically active ACTH stimulates the secretion of cortisol from the adrenal gland. This test is used to evaluate adrenal function by measuring cortisol levels at baseline and at 30 and 60 minutes after the adm inistration of 250 micrograms of cosyntropin (Cortrosyn). Patients who have rece ived exogenous corticosteroids immediately prior to performing the ACTH Stimulat ion Test will often have elevated baseline cortisol levels, which may lead to er roneous interpretation of test results. The notable exception is with dexamethas one.Normal Response: An increase in cortisol after stimulation by ACTH is normal . Post-stimulation cortisol concentration should be greater than 20 mcg/dL or th e rate of rise from baseline cortisol should be greater than or equal to 9 mcg/d L.Patients with sepsis or septic shock: According to a study by Debbie et al ([facility] 2000,283(6):9232-55), the ACTH Stimulation Test provides important prognostic information. This study defined 3 groups of patients with sepsis or septic shoc k: 1. Good Survival: Low basal cortisol (<or=34 mcg/dL) and high ACTH response (>9mcg/dL) 2. Intermediate Survival: Low basal cortisol (<34 mcg/dL) and low response to ACTH (<or=9 mcg/dL) OR High basal cortisol (>34 mcg/dL) or high ACTH response (>9 mcg/dL) 3. Poor Survival: High basal cortisol (>34 mcg/dL) and low ACTH response (<or=9 mcg/dL).Treatment of patients with relative adrenal dysfunction may be indicated based on test results and the clinical condition of the patient. Additional information, including treatment recommendations, is available in critically ill patients, approved by the Pharmacy, Nutrition, and Therapeutics Committee on 02/05/2004 and available through the Pharmacy Policy and Procedure Section on The Source.Do not run this test if systemic hydrocortisone, methylprednisolone, prednisolone or prednisone has been administered within the past 24 hours. Draw baseline cortisol level just prior to cosyntropin administration. Administer cosyntropin 0.25 mg diluted in 2-5 mL of normal saline slow IV Push over a period of 2 minutes. Draw serum cortisol level 30 minutes after cosyntropin administration. Draw serum cortisol level 60 minutes after cosyntropin administration.POCT- GLUCOSE [id number] 13:55:00* Test Item Value Reference Range Interpretation Comments POC-GLUCOSE METER (BEAKER) (test code = 1538) 158 mg/dL 70-110 H TESTED AT [facility] [address] [facility] [address] POCT-GLUCOSE [id number] 13:55:00* Test Item Value Reference Range Interpretation Comments POC-GLUCOSE METER (BEAKER) (test code = 1538) 117 mg/dL 70-110 H TESTED AT [facility] [address] [facility] [address] BASIC METABOLIC [id number] 13:17:00* Test Item Value Reference Range Interpretation Comments SODIUM (BEAKER) (test code = 381) 145 meq/L 136-145 POTASSIUM (BEAKER) (test code = 379) 4.1 meq/L 3.5-5.1 CHLORIDE (BEAKER) (test code = 382) 98 meq/L 98-107 CO2 (BEAKER) (test code = 355) 31 meq/L 22-29 H BLOOD UREA NITROGEN (BEAKER) (test code = 354) 98 mg/dL 7-21 H CREATININE (BEAKER) (test code = 358) 2.86 mg/dL 0.57-1.25 H GLUCOSE RANDOM (BEAKER) (test code = 652) 130 mg/dL 70-105 H CALCIUM (BEAKER) (test code = 697) 9.3 mg/dL 8.4-10.2 EGFR (BEAKER) (test code = 1092) 25 mL/min/1.73 sq m ESTIMATED GFR IS NOT ACCURATE CREATININE CLEARANCE IN PREDICTING GLOMERULAR FILTRATION RATE. ESTIMATED GFR IS NOT APPLICABLE FOR DIALYSIS PATIENTS. Specimen markedly [id number] 13:13:00* Test Item Value Reference Range Interpretation Comments MAGNESIUM (BEAKER) (test code = 627) 2.5 mg/dL 1.6-2.6 POCT-GLUCOSE [id number] 12:15:00* Test Item Value Reference Range Interpretation Comments POC-GLUCOSE METER (BEAKER) (test code = 1538) 139 mg/dL 70-110 H TESTED AT [address] [address] BLOOD GAS, [id number] 11:28:00* Test Item Value Reference Range Interpretation Comments PH ARTERIAL (BEAKER) (test code = 383) 7.51 7.35-7.45 H PCO2 ARTERIAL (BEAKER) (test code = 384) 45 mmHg 35-45 PO2 ARTERIAL (BEAKER) (test code = 385) 87 mmHg 80-90 O2 SATURATION ARTERIAL (BEAKER) (test code = 386) 97.1 % 96.0 -97.0 H HCO3 ARTERIAL (BEAKER) (test code = 388) 35 mmol/L 21-29 H BASE EXCESS ARTERIAL (BEAKER) (test code = 387) 10.8 mmol/L -2.0-3 .0 H PATIENT TEMPERATURE (BEAKER) (test code = 1818) 37.5 C FIO2 (BEAKER) (test code = 1819) 75.0 % [id number] 09:54:00* Test Item Value Reference Range Interpretation Comments MAGNESIUM (BEAKER) (test code = 627) 2.5 mg/dL 1.6-2.6 Specimen slightly hemolyzed CALCIUM, [id number] 09:22:00* Test Item Value Reference Range Interpretation Comments CALCIUM IONIZED (BEAKER) (test code = 698) 1.08 mmol/L 1.12-1.27 L PH, BLOOD (BEAKER) (test code = 1810) 7.48 Check serum Ionized Calcium level after 4 hours after IV Calcium replacement.CT, CHEST, WITHOUT [id number] 09:01:00FINAL REPORT CT scan of the chest, abdomen and pelvis. CLINICAL HISTORY: Abdominal pain, fever, abscess suspected. COMPARISON STUDY: Chest x-ray dated June 08, [address] scan of the chest, abdomen and pelvis dated June 01, 2018. TECHNIQUE: Contiguous helical slices were acquired through the chest, abdomen and pelvis without the administration of oral or intravenous contrast. This exam was performed according to our department dose optimization program which includes automated exposure control, adjustment of the mA and/or kV according to the patient's size and/or use of iterative reconstruction technique. FINDINGS: The mediastinum demonstrates no suspicious masses or adenopathy. An endotracheal tube, left-sided central line and nasogastric tube are seen. No significant pleural effusion is seen. The tracheobronchial tree is clear with no endobr onchial lesions. The pulmonary parenchyma again demonstrates extensive bilateral multifocal airspace opacities which are more pronounced in the mid to upper stephanie g field as compared to previous and improved in the lung bases also significant opacity remains. The liver is enlarged and fatty in attenuation. Lack of contras t limits assessment for masses. There is also artifact from the patient's arms. The spleen is enlarged measuring 14.5 cm in length. The pancreas, kidneys and ad renal glands are unremarkable. Gallbladder sludge is noted. There is no biliary dilatation. No dilated loops of bowel are seen to suggest obstruction. Mild asci doug is seen is diffuse anasarca. The aorta is normal in caliber. Scattered small lymph nodes are identified. Bone windows demonstrate no focal abnormality. IMPR ESSION:1. Extensive bilateral airspace opacities which are for pronounced on pre vious in the mid to upper lung field and improved in the lung bases although the re is significant opacity. This is most likely related to CHF, ARDS or diffuse i nfection.2. Hepatosplenomegaly with fatty infiltration of the liver.3. Mild asci doug, more pronounced than on previous. No loculated collections seen.4. Study li mited by lack of contrast.5. No other significant change. Signed: Iman Sloan MDReport Verified Date/Time: 06/08/2018 09:01:11 Reading Location: [place] [id number] 3X Ortho Consult Reading Room , [id number] 09:01:00FINAL REPORT CT scan of the chest, abdomen and pelvis. CLINICAL HISTORY: Abdominal pain, fever, abscess suspected. COMPARISON STUDY: Chest x-ray dated June 08, [address] scan of the chest, abdomen and pelvis dated June 01, 2018. TECHNIQUE: Contiguous helical slices were acquired through the chest, abdomen and pelvis without the administration of oral or intravenous contrast. This exam was performed according to our department dose optimization program which includes automated exposure control, adjustment of the mA and/or kV according to the patient's size and/or use of iterative reconstruction technique. FINDINGS: The mediastinum demonstrates no suspicious masses or adenopathy. An endotracheal tube, left-sided central line and nasogastric tube are seen. No significant pleural effusion is seen. The tracheobronchial tree is clear with no endobr onchial lesions. The pulmonary parenchyma again demonstrates extensive bilateral multifocal airspace opacities which are more pronounced in the mid to upper stephanie g field as compared to previous and improved in the lung bases also significant opacity remains. The liver is enlarged and fatty in attenuation. Lack of contras t limits assessment for masses. There is also artifact from the patient's arms. The spleen is enlarged measuring 14.5 cm in length. The pancreas, kidneys and ad renal glands are unremarkable. Gallbladder sludge is noted. There is no biliary dilatation. No dilated loops of bowel are seen to suggest obstruction. Mild asci doug is seen is diffuse anasarca. The aorta is normal in caliber. Scattered small lymph nodes are identified. Bone windows demonstrate no focal abnormality. IMPR ESSION:1. Extensive bilateral airspace opacities which are for pronounced on pre vious in the mid to upper lung field and improved in the lung bases although the re is significant opacity. This is most likely related to CHF, ARDS or diffuse i nfection.2. Hepatosplenomegaly with fatty infiltration of the liver.3. Mild asci doug, more pronounced than on previous. No loculated collections seen.4. Study li mited by lack of contrast.5. No other significant change. Signed: Iman Sloaneport Verified Date/Time: 06/08/2018 09:01:11 Reading Location: [facility] C01 3X Ortho Consult Reading Room -GLUCOSE [id number] 06:37:00* Test Item Value Reference Range Interpretation Comments POC-GLUCOSE METER (BEAKER) (test code = 1538) 142 mg/dL 70-110 H TESTED AT [facility] [address] [facility] [address] BLOOD GAS, [id number] 06:34:00* Test Item Value Reference Range Interpretation Comments PH ARTERIAL (BEAKER) (test code = 383) 7.42 7.35-7.45 PCO2 ARTERIAL (BEAKER) (test code = 384) 57 mmHg 35-45 H PO2 ARTERIAL (BEAKER) (test code = 385) 89 mmHg 80-90 O2 SATURATION ARTERIAL (BEAKER) (test code = 386) 96.4 % 96.0 -97.0 HCO3 ARTERIAL (BEAKER) (test code = 388) 36 mmol/L 21-29 H BASE EXCESS ARTERIAL (BEAKER) (test code = 387) 10.4 mmol/L -2.0-3 .0 H PATIENT TEMPERATURE (BEAKER) (test code = 1818) 38.0 C FIO2 (BEAKER) (test code = 1819) 90.0 % [id number] 06:11:00* Test Item Value Reference Range Interpretation Comments PARTIAL THROMBOPLASTIN TIME (BEAKER) (test code = 760) 54.2 seconds 22.5-36.0 H PROTHROMBIN TIME/[id number] 06:10:00* Test Item Value Reference Range Interpretation Comments PROTIME (BEAKER) (test code = 759) 18.2 seconds 11.7-14.7 H INR (BEAKER) (test code = 370) 1.5 <=5.9 RECOMMENDED COUMADIN/WARFARIN INR THERAPY RANGESSTANDARD DOSE: 2.0 - 3.0 Inclu herb: PROPHYLAXIS for venous thrombosis, systemic embolization; TREATMENT for giulia ous thrombosis and/or pulmonary embolus.HIGH RISK: Target INR is 2.5-3.5 for pat ients with mechanical heart valves.HEPATIC FUNCTION [id number] 05:51:00* Test Item Value Reference Range Interpretation Comments TOTAL PROTEIN (BEAKER) (test code = 770) 6.7 gm/dL 6.0-8.3 ALBUMIN (BEAKER) (test code = 1145) 2.9 g/dL 3.5-5.0 L BILIRUBIN TOTAL (BEAKER) (test code = 377) 23.2 mg/dL 0.2-1.2 H BILIRUBIN DIRECT (BEAKER) (test code = 706) 18.2 mg/dL 0.1-0.5 H ALKALINE PHOSPHATASE (BEAKER) (test code = 346) 142 U/L 40-150 AST (SGOT) (BEAKER) (test code = 353) 255 U/L 5-34 H ALT (SGPT) (BEAKER) (test code = 347) 127 U/L 6-55 H Specimen markedly ictericBASIC METABOLIC [id number] 05:51:00* Test Item Value Reference Range Interpretation Comments SODIUM (BEAKER) (test code = 381) 145 meq/L 136-145 POTASSIUM (BEAKER) (test code = 379) 3.9 meq/L 3.5-5.1 CHLORIDE (BEAKER) (test code = 382) 98 meq/L 98-107 CO2 (BEAKER) (test code = 355) 31 meq/L 22-29 H BLOOD UREA NITROGEN (BEAKER) (test code = 354) 93 mg/dL 7-21 H CREATININE (BEAKER) (test code = 358) 2.58 mg/dL 0.57-1.25 H GLUCOSE RANDOM (BEAKER) (test code = 652) 139 mg/dL 70-105 H CALCIUM (BEAKER) (test code = 697) 9.9 mg/dL 8.4-10.2 EGFR (BEAKER) (test code = 1092) 28 mL/min/1.73 sq m ESTIMATED GFR IS NOT ACCURATE CREATININE CLEARANCE IN PREDICTING GLOMERULAR FILTRATION RATE. ESTIMATED GFR IS NOT APPLICABLE FOR DIALYSIS PATIENTS. Specimen markedly ictericPOCT-GLUCOSE [id number] 05:43:00* Test Item Value Reference Range Interpretation Comments POC-GLUCOSE METER (BEAKER) (test code = 1538) 140 mg/dL 70-110 H TESTED AT [facility] [address] [facility] [address] [id number] 05:36:00* Test Item Value Reference Range Interpretation Comments MAGNESIUM (BEAKER) (test code = 627) 2.3 mg/dL 1.6-2.6 [id number] 05:25:00* Test Item Value Reference Range Interpretation Comments PHOSPHORUS (BEAKER) (test code = 604) 4.9 mg/dL 2.3-4.7 H Specimen slightly hemolyzed Check Serum Phosphorus level 4 hours after IV phosphorus replacement or 8 hours after PO replacement completed.POCT-GLUCOSE [id number] 04:20:00* Test Item Value Reference Range Interpretation Comments POC-GLUCOSE METER (BEAKER) (test code = 1538) 153 mg/dL 70-110 H TESTED AT [facility] [address] [facility] [facility] [address] RAD, CHEST, 1 VIEW, NON [id number] 04:10:00Reason for exam:->s/p intubation FINAL REPORT CLINICAL INDICATION: Intubation Comparison: Same date at 0202 hours The tip of an endotracheal tube is in good position bet ween the clavicles and viktoria. The cardiomediastinal contours are stable. The john ng volumes remain low. Bilateral parenchymal opacities are unchanged. There is n o pneumothorax. A left IJ CVC remains in place. Signed: Katherine Reich MDReport V erified Date/Time: 06/08/2018 04:10:15 Reading Location: [address] Reading Room W/PLT COUNT & AUTO [id number] 03:53:00* Test Item Value Reference Range Interpretation Comments WHITE BLOOD CELL COUNT (BEAKER) (test code = 775) 39.9 K/ L 3.5- 10.5 H RED BLOOD CELL COUNT (BEAKER) (test code = 761) 2.51 M/ L 4.63-6 .08 L HEMOGLOBIN (BEAKER) (test code = 410) 9.0 GM/DL 13.7-17.5 L HEMATOCRIT (BEAKER) (test code = 411) 27.6 % 40.1-51.0 L MEAN CORPUSCULAR VOLUME (BEAKER) (test code = 753) 110.0 fL 79. 0-92.2 H MEAN CORPUSCULAR HEMOGLOBIN (BEAKER) (test code = 751) 35.9 pg 25.7-32.2 H MEAN CORPUSCULAR HEMOGLOBIN CONC (BEAKER) (test code = 752) 32.6 GM/DL 32.3-36.5 RED CELL DISTRIBUTION WIDTH (BEAKER) (test code = 412) 15.4 % 11.6-14.4 H PLATELET COUNT (BEAKER) (test code = 756) 303 K/CU MM 150-450 MEAN PLATELET VOLUME (BEAKER) (test code = 754) 11.1 fL 9.4-12 .4 NUCLEATED RED BLOOD CELLS (BEAKER) (test code = 413) 0 /100 WBC 0 -0 NEUTROPHILS RELATIVE PERCENT (BEAKER) (test code = 429) 89 % LYMPHOCYTES RELATIVE PERCENT (BEAKER) (test code = 430) 3 % MONOCYTES RELATIVE PERCENT (BEAKER) (test code = 431) 6 % EOSINOPHILS RELATIVE PERCENT (BEAKER) (test code = 432) 0 % BASOPHILS RELATIVE PERCENT (BEAKER) (test code = 437) 0 % NEUTROPHILS ABSOLUTE COUNT (BEAKER) (test code = 670) 35.37 K/ L 1.78-5.38 H LYMPHOCYTES ABSOLUTE COUNT (BEAKER) (test code = 414) 1.19 K/ L 1.32-3.57 L MONOCYTES ABSOLUTE COUNT (BEAKER) (test code = 415) 2.21 K/ L 0. 30-0.82 H EOSINOPHILS ABSOLUTE COUNT (BEAKER) (test code = 416) 0.10 K/ L 0.04-0.54 BASOPHILS ABSOLUTE COUNT (BEAKER) (test code = 417) 0.10 K/ L 0. 01-0.08 H IMMATURE GRANULOCYTES-RELATIVE PERCENT (BEAKER) (test code = 2801) 2 % 0-1 H CALCIUM, [id number] 02:54:00* Test Item Value Reference Range Interpretation Comments CALCIUM IONIZED (BEAKER) (test code = 698) 1.09 mmol/L 1.12-1.27 L PH, BLOOD (BEAKER) (test code = 1810) 7.45 Check serum Ionized Calcium level after 4 hours after IV Calcium replacement. BLOOD GAS, [id number] 02:54:00* Test Item Value Reference Range Interpretation Comments PH ARTERIAL (BEAKER) (test code = 383) 7.43 7.35-7.45 PCO2 ARTERIAL (BEAKER) (test code = 384) 53 mmHg 35-45 H PO2 ARTERIAL (BEAKER) (test code = 385) 126 mmHg 80-90 H O2 SATURATION ARTERIAL (BEAKER) (test code = 386) 98.4 % 96.0 -97.0 H HCO3 ARTERIAL (BEAKER) (test code = 388) 34 mmol/L 21-29 H BASE EXCESS ARTERIAL (BEAKER) (test code = 387) 8.7 mmol/L -2.0-3 .0 H PATIENT TEMPERATURE (BEAKER) (test code = 1818) 38.5 C FIO2 (BEAKER) (test code = 1819) 100.0 % RAD, CHEST, 1 VIEW, NON [id number] 02:16:00Reason for exam:->tachypneaFINAL REPORT CLINICAL INDICATION: Kidney Comparison: 06/07/2018 The cardiomediastinal contours are stable. The lung volumes are low but stable after extubation. Worsening, near confluent bilateral pulmonary opacities are nonspecific and may reflect pulmonary edema or multifocal pneumonitis, among other considerations. There is no pneumothorax or large pleural effusion. A left IJ CVC remains in place. Signed: Katherine Reicheport Verified Date/Time: 0 06/08/2018 02:16:21 Reading Location: [address] Reading Room E lectronically signed by: KATHERINE REICH M.D. on 06/08/2018 02:16 AM BASIC METABOLIC [id number] 01:44:00* Test Item Value Reference Range Interpretation Comments SODIUM (BEAKER) (test code = 381) 143 meq/L 136-145 POTASSIUM (BEAKER) (test code = 379) 3.7 meq/L 3.5-5.1 CHLORIDE (BEAKER) (test code = 382) 97 meq/L 98-107 L CO2 (BEAKER) (test code = 355) 30 meq/L 22-29 H BLOOD UREA NITROGEN (BEAKER) (test code = 354) 91 mg/dL 7-21 H CREATININE (BEAKER) (test code = 358) 2.67 mg/dL 0.57-1.25 H GLUCOSE RANDOM (BEAKER) (test code = 652) 139 mg/dL 70-105 H CALCIUM (BEAKER) (test code = 697) 9.7 mg/dL 8.4-10.2 EGFR (BEAKER) (test code = 1092) 27 mL/min/1.73 sq m ESTIMATED GFR IS NOT ACCURATE CREATININE CLEARANCE IN PREDICTING GLOMERULAR FILTRATION RATE. ESTIMATED GFR IS NOT APPLICABLE FOR DIALYSIS PATIENTS. Specimen markedly ictericPOCT-GLUCOSE [id number] 01:18:00* Test Item Value Reference Range Interpretation Comments POC-GLUCOSE METER (BEAKER) (test code = 1538) 122 mg/dL 70-110 H TESTED AT [address] [address] BLOOD GAS, [id number] 01:03:00* Test Item Value Reference Range Interpretation Comments PH ARTERIAL (BEAKER) (test code = 383) 7.45 7.35-7.45 PCO2 ARTERIAL (BEAKER) (test code = 384) 52 mmHg 35-45 H PO2 ARTERIAL (BEAKER) (test code = 385) 126 mmHg 80-90 H O2 SATURATION ARTERIAL (BEAKER) (test code = 386) 98.3 % 96.0 -97.0 H HCO3 ARTERIAL (BEAKER) (test code = 388) 34 mmol/L 21-29 H BASE EXCESS ARTERIAL (BEAKER) (test code = 387) 9.8 mmol/L -2.0-3 .0 H PATIENT TEMPERATURE (BEAKER) (test code = 1818) 39.0 C FIO2 (BEAKER) (test code = 1819) 100.0 % POCT-GLUCOSE [id number] 00:19:00* Test Item Value Reference Range Interpretation Comments POC-GLUCOSE METER (BEAKER) (test code = 1538) 136 mg/dL 70-110 H TESTED AT [facility] [address] [facility] [address] BLOOD GAS, [id number] 23:19:00* Test Item Value Reference Range Interpretation Comments PH ARTERIAL (BEAKER) (test code = 383) 7.52 7.35-7.45 H PCO2 ARTERIAL (BEAKER) (test code = 384) 41 mmHg 35-45 PO2 ARTERIAL (BEAKER) (test code = 385) 51 mmHg 80-90 L O2 SATURATION ARTERIAL (BEAKER) (test code = 386) 89.8 % 96.0 -97.0 L HCO3 ARTERIAL (BEAKER) (test code = 388) 33 mmol/L 21-29 H BASE EXCESS ARTERIAL (BEAKER) (test code = 387) 9.5 mmol/L -2.0-3 .0 H PATIENT TEMPERATURE (BEAKER) (test code = 1818) 36.9 C FIO2 (BEAKER) (test code = 1819) 40.0 % POCT-GLUCOSE [id number] 22:58:00* Test Item Value Reference Range Interpretation Comments POC-GLUCOSE METER (BEAKER) (test code = 1538) 128 mg/dL 70-110 H TESTED AT [facility] [address] [facility] [address] POCT-GLUCOSE [id number] 22:00:00* Test Item Value Reference Range Interpretation Comments POC-GLUCOSE METER (BEAKER) (test code = 1538) 108 mg/dL 70-110 TESTED AT [address] [address] BASIC METABOLIC [id number] 21:50:00* Test Item Value Reference Range Interpretation Comments SODIUM (BEAKER) (test code = 381) 144 meq/L 136-145 POTASSIUM (BEAKER) (test code = 379) 3.6 meq/L 3.5-5.1 CHLORIDE (BEAKER) (test code = 382) 97 meq/L 98-107 L CO2 (BEAKER) (test code = 355) 32 meq/L 22-29 H BLOOD UREA NITROGEN (BEAKER) (test code = 354) 91 mg/dL 7-21 H CREATININE (BEAKER) (test code = 358) 2.63 mg/dL 0.57-1.25 H GLUCOSE RANDOM (BEAKER) (test code = 652) 90 mg/dL 70-105 CALCIUM (BEAKER) (test code = 697) 9.7 mg/dL 8.4-10.2 EGFR (BEAKER) (test code = 1092) 27 mL/min/1.73 sq m ESTIMATED GFR IS NOT ACCURATE CREATININE CLEARANCE IN PREDICTING GLOMERULAR FILTRATION RATE. ESTIMATED GFR IS NOT APPLICABLE FOR DIALYSIS PATIENTS. Specimen markedly [id number] 21:38:00* Test Item Value Reference Range Interpretation Comments MAGNESIUM (BEAKER) (test code = 627) 2.0 mg/dL 1.6-2.6 CALCIUM, [id number] 21:15:00* Test Item Value Reference Range Interpretation Comments CALCIUM IONIZED (BEAKER) (test code = 698) 1.12 mmol/L 1.12-1.27 PH, BLOOD (BEAKER) (test code = 1810) 7.51 Check serum Ionized Calcium level after 4 hours after IV Calcium replacement. POCT-GLUCOSE [id number] 20:58:00* Test Item Value Reference Range Interpretation Comments POC-GLUCOSE METER (BEAKER) (test code = 1538) 97 mg/dL 70-110 TESTED AT [address] [address] POCT-GLUCOSE [id number] 19:42:00* Test Item Value Reference Range Interpretation Comments POC-GLUCOSE METER (BEAKER) (test code = 1538) 101 mg/dL 70-110 TESTED AT [address] [address] POCT-GLUCOSE [id number] 18:42:00* Test Item Value Reference Range Interpretation Comments POC-GLUCOSE METER (BEAKER) (test code = 1538) 97 mg/dL 70-110 TESTED AT [address] [address] BLOOD GAS, [id number] 16:56:00* Test Item Value Reference Range Interpretation Comments PH ARTERIAL (BEAKER) (test code = 383) 7.50 7.35-7.45 H PCO2 ARTERIAL (BEAKER) (test code = 384) 46 mmHg 35-45 H PO2 ARTERIAL (BEAKER) (test code = 385) 85 mmHg 80-90 O2 SATURATION ARTERIAL (BEAKER) (test code = 386) 96.9 % 96.0 -97.0 HCO3 ARTERIAL (BEAKER) (test code = 388) 35 mmol/L 21-29 H BASE EXCESS ARTERIAL (BEAKER) (test code = 387) 10.7 mmol/L -2.0-3 .0 H PATIENT TEMPERATURE (BEAKER) (test code = 1818) 37.5 C FIO2 (BEAKER) (test code = 1819) 100.0 % POCT-GLUCOSE [id number] 16:45:00* Test Item Value Reference Range Interpretation Comments POC-GLUCOSE METER (BEAKER) (test code = 1538) 149 mg/dL 70-110 H TESTED AT [facility] [address] [facility] [address] POCT-GLUCOSE [id number] 15:25:00* Test Item Value Reference Range Interpretation Comments POC-GLUCOSE METER (BEAKER) (test code = 1538) 74 mg/dL 70-110 TESTED AT [place] [id number] [facility] [address] POCT-GLUCOSE [id number] 14:31:00* Test Item Value Reference Range Interpretation Comments POC-GLUCOSE METER (BEAKER) (test code = 1538) 129 mg/dL 70-110 H TESTED AT [place] [id number] [facility] [address] [id number] 13:46:00* Test Item Value Reference Range Interpretation Comments MAGNESIUM (BEAKER) (test code = 627) 1.8 mg/dL 1.6-2.6 BASIC METABOLIC [id number] 13:46:00* Test Item Value Reference Range Interpretation Comments SODIUM (BEAKER) (test code = 381) 147 meq/L 136-145 H POTASSIUM (BEAKER) (test code = 379) 3.7 meq/L 3.5-5.1 CHLORIDE (BEAKER) (test code = 382) 99 meq/L 98-107 CO2 (BEAKER) (test code = 355) 31 meq/L 22-29 H BLOOD UREA NITROGEN (BEAKER) (test code = 354) 86 mg/dL 7-21 H CREATININE (BEAKER) (test code = 358) 2.29 mg/dL 0.57-1.25 H GLUCOSE RANDOM (BEAKER) (test code = 652) 167 mg/dL 70-105 H CALCIUM (BEAKER) (test code = 697) 9.5 mg/dL 8.4-10.2 EGFR (BEAKER) (test code = 1092) 32 mL/min/1.73 sq m ESTIMATED GFR IS NOT ACCURATE CREATININE CLEARANCE IN PREDICTING GLOMERULAR FILTRATION RATE. ESTIMATED GFR IS NOT APPLICABLE FOR DIALYSIS PATIENTS. Specimen markedly ictericPOCT-GLUCOSE [id number] 13:03:00* Test Item Value Reference Range Interpretation Comments POC-GLUCOSE METER (BEAKER) (test code = 1538) 182 mg/dL 70-110 H TESTED AT [facility] [address] [facility] [address] ANTI-MITOCHONDRIAL AB, REFLEX TO [id number] 11:38:00* Test Item Value Reference Range Interpretation Comments SCAN RESULT (test code = 5077450) CBC W/PLT COUNT & AUTO [id number] 11:36:00* Test Item Value Reference Range Interpretation Comments WHITE BLOOD CELL COUNT (BEAKER) (test code = 775) 27.9 K/ L 3.5- 10.5 H RED BLOOD CELL COUNT (BEAKER) (test code = 761) 2.44 M/ L 4.63-6 .08 L HEMOGLOBIN (BEAKER) (test code = 410) 8.8 GM/DL 13.7-17.5 L HEMATOCRIT (BEAKER) (test code = 411) 27.5 % 40.1-51.0 L MEAN CORPUSCULAR VOLUME (BEAKER) (test code = 753) 112.7 fL 79. 0-92.2 H MEAN CORPUSCULAR HEMOGLOBIN (BEAKER) (test code = 751) 36.1 pg 25.7-32.2 H MEAN CORPUSCULAR HEMOGLOBIN CONC (BEAKER) (test code = 752) 32.0 GM/DL 32.3-36.5 L RED CELL DISTRIBUTION WIDTH (BEAKER) (test code = 412) 15.1 % 11.6-14.4 H PLATELET COUNT (BEAKER) (test code = 756) 244 K/CU MM 150-450 MEAN PLATELET VOLUME (BEAKER) (test code = 754) 11.1 fL 9.4-12 .4 NUCLEATED RED BLOOD CELLS (BEAKER) (test code = 413) 0 /100 WBC 0 -0 (CELLAVISION MANUAL DIFF)2018-06-07 11:36:00* Test Item Value Reference Range Interpretation Comments NEUTROPHILS - REL (CELLAVISION)(BEAKER) (test code = 2816) 87 % LYMPHOCYTES - REL (CELLAVISION)(BEAKER) (test code = 2817) 6 % MONOCYTES - REL (CELLAVISION)(BEAKER) (test code = 2818) 4 % EOSINOPHILS - REL (CELLAVISION)(BEAKER) (test code = 2819) 1 % BASOPHILS - REL (CELLAVISION)(BEAKER) (test code = 2820) 1 % BANDS - REL (CELLAVISION)(BEAKER) (test code = 2826) 1 % 0 -10 NEUTROPHILS - ABS (CELLAVISION)(BEAKER) (test code = 2830) 24.27 K/ul 1.78-5.38 H LYMPHOCYTES - ABS (CELLAVISION)(BEAKER) (test code = 2831) 1.67 K/ul 1.32-3.57 MONOCYTES - ABS (CELLAVISION)(BEAKER) (test code = 2832) 1.12 K/uL 0.30-0.82 H EOSINOPHILS - ABS (CELLAVISION)(BEAKER) (test code = 2834) 0.28 K/uL 0.04-0.54 BASOPHILS - ABS (CELLAVISION)(BEAKER) (test code = 2835) 0.28 K/uL 0.01-0.08 H BANDS - ABS (CELLAVISION)(BEAKER) (test code = 2840) 0.28 K/uL 0 .00-0.80 TOTAL COUNTED (BEAKER) (test code = 1351) 100 WBC MORPHOLOGY (BEAKER) (test code = 487) Normal GIANT PLATELETS (BEAKER) (test code = 313) Present POLYCHROMATOPHILLIC RBCS(BEAKER) (test code = 478) 1+ few POIKILOCYTES (BEAKER) (test code = 966) 1+ few TARGET CELLS (BEAKER) (test code = 480) 1+ few TEAR DROP CELLS (BEAKER) (test code = 481) 1+ few BASOPHILIC STIPPLING (BEAKER) (test code = 473) Present PLATELET CONCENTRATION (CELLAVISION)(BEAKER) (test code = 3438) Cheryl quate Received comment: User comments: Slide comments: POCT-GLUCOSE [id number] 11:35:00* Test Item Value Reference Range Interpretation Comments POC-GLUCOSE METER (BEAKER) (test code = 1538) 128 mg/dL 70-110 H TESTED AT [facility] [address] [facility] [address] POCT-GLUCOSE [id number] 11:13:00* Test Item Value Reference Range Interpretation Comments POC-GLUCOSE METER (BEAKER) (test code = 1538) 97 mg/dL 70-110 TESTED AT [facility] [address] [facility] [address] POCT-GLUCOSE [id number] 11:13:00* Test Item Value Reference Range Interpretation Comments POC-GLUCOSE METER (BEAKER) (test code = 1538) 68 mg/dL 70-110 L TESTED AT [facility] [address] [facility] [address] BLOOD GAS, [id number] 10:41:00* Test Item Value Reference Range Interpretation Comments PH ARTERIAL (BEAKER) (test code = 383) 7.48 7.35-7.45 H PCO2 ARTERIAL (BEAKER) (test code = 384) 50 mmHg 35-45 H PO2 ARTERIAL (BEAKER) (test code = 385) 54 mmHg 80-90 L O2 SATURATION ARTERIAL (BEAKER) (test code = 386) 89.9 % 96.0 -97.0 L HCO3 ARTERIAL (BEAKER) (test code = 388) 37 mmol/L 21-29 H BASE EXCESS ARTERIAL (BEAKER) (test code = 387) 11.8 mmol/L -2.0-3 .0 H PATIENT TEMPERATURE (BEAKER) (test code = 1818) 37.0 C FIO2 (BEAKER) (test code = 1819) 100.0 % CATHETER TIP [id number] 09:30:00* Test Item Value Reference Range Interpretation Comments CULTURE (BEAKER) (test code = 1095) No growth BLOOD GAS, [id number] 08:13:00* Test Item Value Reference Range Interpretation Comments PH ARTERIAL (BEAKER) (test code = 383) 7.48 7.35-7.45 H PCO2 ARTERIAL (BEAKER) (test code = 384) 49 mmHg 35-45 H PO2 ARTERIAL (BEAKER) (test code = 385) 51 mmHg 80-90 L O2 SATURATION ARTERIAL (BEAKER) (test code = 386) 87.0 % 96.0 -97.0 L HCO3 ARTERIAL (BEAKER) (test code = 388) 35 mmol/L 21-29 H BASE EXCESS ARTERIAL (BEAKER) (test code = 387) 10.5 mmol/L -2.0-3 .0 H PATIENT TEMPERATURE (BEAKER) (test code = 1818) 37.5 C FIO2 (BEAKER) (test code = 1819) 65.0 % POCT-GLUCOSE [id number] 07:48:00* Test Item Value Reference Range Interpretation Comments POC-GLUCOSE METER (BEAKER) (test code = 1538) 127 mg/dL 70-110 H TESTED AT [facility] [address] [facility] [address] RAD, CHEST, 1 VIEW, NON [id number] 07:37:00Reason for exam:->resp failureShould this be performed at the bedside?->YesFINAL REPORT Chest dated 06/07/2018 COMPARISON: 06/06/2018 Clinical Information: resp failure Comment: Heart is enlarged. Pulmonary vasculature is indistinct. Interstitial disease is seen bilaterally suggestive of pulmonary edema or pneumonia worsening prior study. No pleural effusion or pneumothorax is seen. Endotracheal tube, nasogastric tube, feeding tube, and left IJ central venous catheter are present. Impression: Interval worsening of interstitial pulmonary disease. Signed: Keith Garcia Verified Date/Time: 06/07/2018 07:37:40 Reading Location: [facility] Radiology Reading Room -GLUCOSE METER 2018-06-07 06:32:00* Test Item Value Reference Range Interpretation Comments POC-GLUCOSE METER (BEAKER) (test code = 1538) 165 mg/dL 70-110 H TESTED AT [place] [id number] [facility] [address] BLOOD GAS, [id number] 05:35:00* Test Item Value Reference Range Interpretation Comments PH ARTERIAL (BEAKER) (test code = 383) 7.43 7.35-7.45 PCO2 ARTERIAL (BEAKER) (test code = 384) 52 mmHg 35-45 H PO2 ARTERIAL (BEAKER) (test code = 385) 116 mmHg 80-90 H O2 SATURATION ARTERIAL (BEAKER) (test code = 386) 98.1 % 96.0 -97.0 H HCO3 ARTERIAL (BEAKER) (test code = 388) 33 mmol/L 21-29 H BASE EXCESS ARTERIAL (BEAKER) (test code = 387) 8.3 mmol/L -2.0-3 .0 H PATIENT TEMPERATURE (BEAKER) (test code = 1818) 38.0 C FIO2 (BEAKER) (test code = 1819) 60.0 % CALCIUM, [id number] 05:35:00* Test Item Value Reference Range Interpretation Comments CALCIUM IONIZED (BEAKER) (test code = 698) 0.96 mmol/L 1.12-1.27 L PH, BLOOD (BEAKER) (test code = 1810) 7.45 HEPATIC FUNCTION [id number] 05:32:00* Test Item Value Reference Range Interpretation Comments TOTAL PROTEIN (BEAKER) (test code = 770) 6.3 gm/dL 6.0-8.3 ALBUMIN (BEAKER) (test code = 1145) 2.7 g/dL 3.5-5.0 L BILIRUBIN TOTAL (BEAKER) (test code = 377) 19.9 mg/dL 0.2-1.2 H BILIRUBIN DIRECT (BEAKER) (test code = 706) 14.6 mg/dL 0.1-0.5 H ALKALINE PHOSPHATASE (BEAKER) (test code = 346) 163 U/L 40-150 H AST (SGOT) (BEAKER) (test code = 353) 200 U/L 5-34 H ALT (SGPT) (BEAKER) (test code = 347) 103 U/L 6-55 H Specimen markedly ictericPOCT-GLUCOSE [id number] 05:18:00* Test Item Value Reference Range Interpretation Comments POC-GLUCOSE METER (BEAKER) (test code = 1538) 182 mg/dL 70-110 H TESTED AT [facility] [address] [facility] [address] BASIC METABOLIC [id number] 05:17:00* Test Item Value Reference Range Interpretation Comments SODIUM (BEAKER) (test code = 381) 147 meq/L 136-145 H POTASSIUM (BEAKER) (test code = 379) 3.5 meq/L 3.5-5.1 CHLORIDE (BEAKER) (test code = 382) 101 meq/L 98-107 CO2 (BEAKER) (test code = 355) 33 meq/L 22-29 H BLOOD UREA NITROGEN (BEAKER) (test code = 354) 82 mg/dL 7-21 H CREATININE (BEAKER) (test code = 358) 2.35 mg/dL 0.57-1.25 H GLUCOSE RANDOM (BEAKER) (test code = 652) 167 mg/dL 70-105 H CALCIUM (BEAKER) (test code = 697) 9.6 mg/dL 8.4-10.2 EGFR (BEAKER) (test code = 1092) 31 mL/min/1.73 sq m ESTIMATED GFR IS NOT ACCURATE CREATININE CLEARANCE IN PREDICTING GLOMERULAR FILTRATION RATE. ESTIMATED GFR IS NOT APPLICABLE FOR DIALYSIS PATIENTS. Specimen markedly ictericLACTIC ACID, [id number] 04:58:00* Test Item Value Reference Range Interpretation Comments LACTATE BLOOD ARTERIAL (2) (BEAKER) (test code = 2874) 1.2 mmol/L 0.5-2.2 Specimen markedly [id number] 04:50:00* Test Item Value Reference Range Interpretation Comments PARTIAL THROMBOPLASTIN TIME (BEAKER) (test code = 760) 43.5 seconds 22.5-36.0 H PROTHROMBIN [id number] 04:49:00* Test Item Value Reference Range Interpretation Comments PROTIME (BEAKER) (test code = 759) 18.1 seconds 11.7-14.7 H INR (BEAKER) (test code = 370) 1.5 <=5.9 RECOMMENDED COUMADIN/WARFARIN INR THERAPY RANGESSTANDARD DOSE: 2.0 - 3.0 Inclu herb: PROPHYLAXIS for venous thrombosis, systemic embolization; TREATMENT for giulia ous thrombosis and/or pulmonary embolus.HIGH RISK: Target INR is 2.5-3.5 for pat ients with mechanical heart valves.POCT-GLUCOSE [id number] 04:16:00* Test Item Value Reference Range Interpretation Comments POC-GLUCOSE METER (BEAKER) (test code = 1538) 180 mg/dL 70-110 H TESTED AT [address] [address] POCT-GLUCOSE [id number] 03:20:00* Test Item Value Reference Range Interpretation Comments POC-GLUCOSE METER (BEAKER) (test code = 1538) 171 mg/dL 70-110 H TESTED AT [address] [address] POCT-GLUCOSE [id number] 02:44:00* Test Item Value Reference Range Interpretation Comments POC-GLUCOSE METER (BEAKER) (test code = 1538) 154 mg/dL 70-110 H TESTED AT [address] [address] POCT-GLUCOSE [id number] 01:31:00* Test Item Value Reference Range Interpretation Comments POC-GLUCOSE METER (BEAKER) (test code = 1538) 140 mg/dL 70-110 H TESTED AT [place] [id number] BASIC METABOLIC [id number] 01:02:00* Test Item Value Reference Range Interpretation Comments SODIUM (BEAKER) (test code = 381) 148 meq/L 136-145 H POTASSIUM (BEAKER) (test code = 379) 3.6 meq/L 3.5-5.1 CHLORIDE (BEAKER) (test code = 382) 103 meq/L 98-107 CO2 (BEAKER) (test code = 355) 32 meq/L 22-29 H BLOOD UREA NITROGEN (BEAKER) (test code = 354) 79 mg/dL 7-21 H CREATININE (BEAKER) (test code = 358) 2.06 mg/dL 0.57-1.25 H GLUCOSE RANDOM (BEAKER) (test code = 652) 161 mg/dL 70-105 H CALCIUM (BEAKER) (test code = 697) 9.5 mg/dL 8.4-10.2 EGFR (BEAKER) (test code = 1092) 36 mL/min/1.73 sq m ESTIMATED GFR IS NOT ACCURATE CREATININE CLEARANCE IN PREDICTING GLOMERULAR FILTRATION RATE. ESTIMATED GFR IS NOT APPLICABLE FOR DIALYSIS PATIENTS. Specimen markedly ictericPOCT-GLUCOSE [id number] 00:57:00* Test Item Value Reference Range Interpretation Comments POC-GLUCOSE METER (BEAKER) (test code = 1538) 173 mg/dL 70-110 H TESTED AT [address] [address] POCT-GLUCOSE [id number] 23:27:00* Test Item Value Reference Range Interpretation Comments POC-GLUCOSE METER (BEAKER) (test code = 1538) 155 mg/dL 70-110 H TESTED AT [place] [id number] BASIC METABOLIC [id number] 22:38:00* Test Item Value Reference Range Interpretation Comments SODIUM (BEAKER) (test code = 381) 148 meq/L 136-145 H POTASSIUM (BEAKER) (test code = 379) 3.7 meq/L 3.5-5.1 CHLORIDE (BEAKER) (test code = 382) 103 meq/L 98-107 CO2 (BEAKER) (test code = 355) 32 meq/L 22-29 H BLOOD UREA NITROGEN (BEAKER) (test code = 354) 77 mg/dL 7-21 H CREATININE (BEAKER) (test code = 358) 2.13 mg/dL 0.57-1.25 H GLUCOSE RANDOM (BEAKER) (test code = 652) 154 mg/dL 70-105 H CALCIUM (BEAKER) (test code = 697) 9.7 mg/dL 8.4-10.2 EGFR (BEAKER) (test code = 1092) 35 mL/min/1.73 sq m ESTIMATED GFR IS NOT ACCURATE CREATININE CLEARANCE IN PREDICTING GLOMERULAR FILTRATION RATE. ESTIMATED GFR IS NOT APPLICABLE FOR DIALYSIS PATIENTS. Specimen markedly [id number] 22:37:00* Test Item Value Reference Range Interpretation Comments MAGNESIUM (BEAKER) (test code = 627) 2.0 mg/dL 1.6-2.6 BLOOD GAS, [id number] 22:18:00* Test Item Value Reference Range Interpretation Comments PH ARTERIAL (BEAKER) (test code = 383) 7.44 7.35-7.45 PCO2 ARTERIAL (BEAKER) (test code = 384) 51 mmHg 35-45 H PO2 ARTERIAL (BEAKER) (test code = 385) 80 mmHg 80-90 O2 SATURATION ARTERIAL (BEAKER) (test code = 386) 95.2 % 96.0 -97.0 L HCO3 ARTERIAL (BEAKER) (test code = 388) 34 mmol/L 21-29 H BASE EXCESS ARTERIAL (BEAKER) (test code = 387) 9.0 mmol/L -2.0-3 .0 H PATIENT TEMPERATURE (BEAKER) (test code = 1818) 38.5 C FIO2 (BEAKER) (test code = 1819) 60.0 % CALCIUM, [id number] 22:15:00* Test Item Value Reference Range Interpretation Comments CALCIUM IONIZED (BEAKER) (test code = 698) 1.05 mmol/L 1.12-1.27 L PH, BLOOD (BEAKER) (test code = 1810) 7.46 POCT-GLUCOSE [id number] 22:08:00* Test Item Value Reference Range Interpretation Comments POC-GLUCOSE METER (BEAKER) (test code = 1538) 138 mg/dL 70-110 H TESTED AT [place] [id number] [facility] [id number] POCT-GLUCOSE [id number] 21:16:00* Test Item Value Reference Range Interpretation Comments POC-GLUCOSE METER (BEAKER) (test code = 1538) 158 mg/dL 70-110 H TESTED AT [address] [address] [id number] 21:03:00* Test Item Value Reference Range Interpretation Comments POTASSIUM (BEAKER) (test code = 379) 3.8 meq/L 3.5-5.1 Check Serum Potassium level 2 hours after oral potassium replacement completed o r 30 min after intravenous potassium replacement.[id number] 21:03:00* Test Item Value Reference Range Interpretation Comments MAGNESIUM (BEAKER) (test code = 627) 2.0 mg/dL 1.6-2.6 Check Serum Potassium level 2 hours after oral potassium replacement completed o r 30 min after intravenous potassium replacement.POCT-GLUCOSE [id number] 20:15:00* Test Item Value Reference Range Interpretation Comments POC-GLUCOSE METER (BEAKER) (test code = 1538) 161 mg/dL 70-110 H TESTED AT [address] [address] POCT-GLUCOSE [id number] 20:15:00* Test Item Value Reference Range Interpretation Comments POC-GLUCOSE METER (BEAKER) (test code = 1538) 113 mg/dL 70-110 H TESTED AT [address] [address] POCT-GLUCOSE [id number] 19:33:00* Test Item Value Reference Range Interpretation Comments POC-GLUCOSE METER (BEAKER) (test code = 1538) 169 mg/dL 70-110 H TESTED AT [address] [address] [id number] 17:52:00* Test Item Value Reference Range Interpretation Comments CORTISOL, TOTAL (BEAKER) (test code = 2755) 23.9 ug/dL 3.7-19.4 H C. DIFFICILE GDH [id number] 17:45:00* Test Item Value Reference Range Interpretation Comments CDT TOXIN (test code = 3399667294) Negative Negative CDT GDH ANTIGEN (test code = 2889224868) Positive Negative A C. difficile present but toxin not detected. Indicates colonization with non-toxigenic strain or level of toxin below detectable levels. No need for enteric isolation. Treatment is rarely needed (only when strong clinical suspicion for Clostridium difficile infection) Testing performed by Ale[employer] Rapid Cassette Assay. For GDH, published sensitivity of the assay is 98.7% compared to cytotoxicity testing. For Toxin AB, publishe d sensitivity is 87.8% and specificity 99.4% compared to cytotoxicity testing.Ve rification of kit performance was done by the [facility] Microbiology Lab prior to cl inical use.BASIC METABOLIC [id number] 16:48:00* Test Item Value Reference Range Interpretation Comments SODIUM (BEAKER) (test code = 381) 150 meq/L 136-145 H POTASSIUM (BEAKER) (test code = 379) 3.9 meq/L 3.5-5.1 CHLORIDE (BEAKER) (test code = 382) 106 meq/L 98-107 CO2 (BEAKER) (test code = 355) 30 meq/L 22-29 H BLOOD UREA NITROGEN (BEAKER) (test code = 354) 75 mg/dL 7-21 H CREATININE (BEAKER) (test code = 358) 2.19 mg/dL 0.57-1.25 H GLUCOSE RANDOM (BEAKER) (test code = 652) 74 mg/dL 70-105 CALCIUM (BEAKER) (test code = 697) 10.2 mg/dL 8.4-10.2 EGFR (BEAKER) (test code = 1092) 34 mL/min/1.73 sq m ESTIMATED GFR IS NOT ACCURATE CREATININE CLEARANCE IN PREDICTING GLOMERULAR FILTRATION RATE. ESTIMATED GFR IS NOT APPLICABLE FOR DIALYSIS PATIENTS. Specimen markedly ictericPOCT-GLUCOSE [id number] 15:10:00* Test Item Value Reference Range Interpretation Comments POC-GLUCOSE METER (BEAKER) (test code = 1538) 78 mg/dL 70-110 TESTED AT [facility] [address] [facility] [address] TROPONIN [id number] 13:26:00* Test Item Value Reference Range Interpretation Comments TROPONIN I (BEAKER) (test code = 397) < ng/mL 0.00-0.03 Troponin I (TnI) levels must be interpreted in the context of the presenting sym ptoms and the clinical findings. Elevated TnI levels indicate myocardial damage, but are not specific for ischemic heart disease. Elevated TnI levels are seen i n patients with other cardiac conditions (including myocarditis and congestive h eart failure), and slight TnI elevations occur in patients with other conditions , including sepsis, renal failure, acidosis, acute neurological disease, and per sistent tachyarrhythmia.[id number] 13:14:00* Test Item Value Reference Range Interpretation Comments D-DIMER QUANTITATIVE (BEAKER) (test code = 671) 2.27 MG/L FEU <0.50 H Intended Use: The D-Dimer Assay can be used to aid in the diagnosis of Deep Vein Thrombosis (DVT) and Pulmonary Embolism Disease (PED).In patients with low pre- test probability, various studies concerning STA Liatest D-dimer test have repor heriberto that with a cutoff value of 0.50 MG/L FEU, the Negative Predictive Value (HOIST OPERATOR V) regarding the exclusion of thrombosis is within 95-100% range.LACTIC ACID, [id number] 13:12:00* Test Item Value Reference Range Interpretation Comments LACTATE BLOOD ARTERIAL (2) (BEAKER) (test code = 2874) 1.3 mmol/L 0.5-2.2 Specimen markedly [id number] 12:57:00* Test Item Value Reference Range Interpretation Comments MAGNESIUM (BEAKER) (test code = 627) 2.1 mg/dL 1.6-2.6 POCT-GLUCOSE [id number] 12:21:00* Test Item Value Reference Range Interpretation Comments POC-GLUCOSE METER (BEAKER) (test code = 1538) 162 mg/dL 70-110 H TESTED AT [facility] [address] [facility] [address] BLOOD [id number] 12:01:00* Test Item Value Reference Range Interpretation Comments CULTURE (BEAKER) (test code = 1095) No growth in 5 days BLOOD [id number] 12:01:00* Test Item Value Reference Range Interpretation Comments CULTURE (BEAKER) (test code = 1095) No growth in 5 days YARI ANTIGEN WITH REFLEX TO [id number] 11:08:00* Test Item Value Reference Range Interpretation Comments YARI ANTIGEN (BEAKER) (test code = 1782) Positive YARI ANTIGEN [id number] 11:08:00* Test Item Value Reference Range Interpretation Comments YARI ANTIGEN TITER (BEAKER) (test code = 737) :4 POCT-GLUCOSE [id number] 11:00:00* Test Item Value Reference Range Interpretation Comments POC-GLUCOSE METER (BEAKER) (test code = 1538) 153 mg/dL 70-110 H TESTED AT [facility] [address] [facility] [address] RAD, CHEST, 1 VIEW, NON [id number] 10:38:00Reason for exam:->oxygen desaturation in setting of known pneumoniaShould this be performed at the bedside?->YesFINAL REPORT Portable chest. CLINICAL HISTORY: oxygen desaturation in setting of known pneumonia. COMPARISON STUDY: June 06, 2018. FINDINGS: The cardiac silhouette is enlarged. The pulmonary parenchyma demonstrates interstitial and airspace opacities, as on previous. The support lines and tubes are unchanged. No pneumothorax is seen. Degenerative changes are noted. IMPRESSION: No significant change. Findings most suggestive of CHF. In the right clinical setting, a superimposed infection would be difficult to exclude. Clinical correlation and short term imaging follow-up could be made to exclude other etiologies. Signed: Andrew Sloan MDReport Verified Date/Time: 06/06/2018 10:38:12 Reading Location: [facility] Radiology Reading Room -NUCLEAR ANTIBODY (TOM)2018-06-06 10:20:00* Test Item Value Reference Range Interpretation Comments ANTI-NUCLEAR ANTIBODY (TOM) (BEAKER) (test code = 418) Negative Negative Test performed by IFA method.Test performed by IFA method.BLOOD GAS, ARTERIAL 2018-06-06 10:16:00* Test Item Value Reference Range Interpretation Comments PH ARTERIAL (BEAKER) (test code = 383) 7.40 7.35-7.45 PCO2 ARTERIAL (BEAKER) (test code = 384) 54 mmHg 35-45 H PO2 ARTERIAL (BEAKER) (test code = 385) 121 mmHg 80-90 H O2 SATURATION ARTERIAL (BEAKER) (test code = 386) 98.0 % 96.0 -97.0 H HCO3 ARTERIAL (BEAKER) (test code = 388) 32 mmol/L 21-29 H BASE EXCESS ARTERIAL (BEAKER) (test code = 387) 6.8 mmol/L -2.0-3 .0 H PATIENT TEMPERATURE (BEAKER) (test code = 1818) 39.0 C FIO2 (BEAKER) (test code = 1819) 100.0 % [id number] 09:37:00* Test Item Value Reference Range Interpretation Comments LIPASE (BEAKER) (test code = 749) 6 U/L 8-78 L Specimen markedly ictericHEPATIC FUNCTION [id number] 09:37:00* Test Item Value Reference Range Interpretation Comments TOTAL PROTEIN (BEAKER) (test code = 770) 6.3 gm/dL 6.0-8.3 ALBUMIN (BEAKER) (test code = 1145) 2.8 g/dL 3.5-5.0 L BILIRUBIN TOTAL (BEAKER) (test code = 377) 18.2 mg/dL 0.2-1.2 H BILIRUBIN DIRECT (BEAKER) (test code = 706) 13.6 mg/dL 0.1-0.5 H ALKALINE PHOSPHATASE (BEAKER) (test code = 346) 153 U/L 40-150 H AST (SGOT) (BEAKER) (test code = 353) 182 U/L 5-34 H ALT (SGPT) (BEAKER) (test code = 347) 105 U/L 6-55 H Specimen markedly [id number] 09:36:00* Test Item Value Reference Range Interpretation Comments AMYLASE (BEAKER) (test code = 349) 17 U/L 25-125 L Specimen markedly [id number] 09:24:00* Test Item Value Reference Range Interpretation Comments CORTISOL, TOTAL (BEAKER) (test code = 2755) 19.9 ug/dL 3.7-19.4 H SPUTUM CULTURE + GRAM [id number] 08:59:00* Test Item Value Reference Range Interpretation Comments CULTURE (BEAKER) (test code = 1095) No growth GRAM STAIN RESULT (BEAKER) (test code = 1123) 3+ WBCs GRAM STAIN RESULT (BEAKER) (test code = 94169) 0-5 epithelial cells GRAM STAIN RESULT (BEAKER) (test code = 70652) No organisms seen BRONCHIAL CULTURE + GRAM [id number] 08:58:00* Test Item Value Reference Range Interpretation Comments CULTURE (BEAKER) (test code = 1095) <1+ Normal respiratory chase pr esent GRAM STAIN RESULT (BEAKER) (test code = 1123) 4+ WBCs GRAM STAIN RESULT (BEAKER) (test code = 22964) No organisms seen BRONCHIAL CULTURE + GRAM [id number] 08:58:00* Test Item Value Reference Range Interpretation Comments CULTURE (BEAKER) (test code = 1095) No growth GRAM STAIN RESULT (BEAKER) (test code = 1123) 1+ WBCs GRAM STAIN RESULT (BEAKER) (test code = 00474) No organisms seen POCT-GLUCOSE [id number] 08:15:00* Test Item Value Reference Range Interpretation Comments POC-GLUCOSE METER (BEAKER) (test code = 1538) 117 mg/dL 70-110 H TESTED AT [facility] [address] [facility] [address] CBC W/PLT COUNT & AUTO [id number] 07:36:00* Test Item Value Reference Range Interpretation Comments WHITE BLOOD CELL COUNT (BEAKER) (test code = 775) 29.8 K/ L 3.5- 10.5 H RED BLOOD CELL COUNT (BEAKER) (test code = 761) 2.58 M/ L 4.63-6 .08 L HEMOGLOBIN (BEAKER) (test code = 410) 9.4 GM/DL 13.7-17.5 L HEMATOCRIT (BEAKER) (test code = 411) 29.1 % 40.1-51.0 L MEAN CORPUSCULAR VOLUME (BEAKER) (test code = 753) 112.8 fL 79. 0-92.2 H MEAN CORPUSCULAR HEMOGLOBIN (BEAKER) (test code = 751) 36.4 pg 25.7-32.2 H MEAN CORPUSCULAR HEMOGLOBIN CONC (BEAKER) (test code = 752) 32.3 GM/DL 32.3-36.5 RED CELL DISTRIBUTION WIDTH (BEAKER) (test code = 412) 14.8 % 11.6-14.4 H PLATELET COUNT (BEAKER) (test code = 756) 241 K/CU MM 150-450 MEAN PLATELET VOLUME (BEAKER) (test code = 754) 10.9 fL 9.4-12 .4 NUCLEATED RED BLOOD CELLS (BEAKER) (test code = 413) 0 /100 WBC 0 -0 (CELLAVISION MANUAL DIFF)2018-06-06 07:36:00* Test Item Value Reference Range Interpretation Comments NEUTROPHILS - REL (CELLAVISION)(BEAKER) (test code = 2816) 89 % LYMPHOCYTES - REL (CELLAVISION)(BEAKER) (test code = 2817) 3 % MONOCYTES - REL (CELLAVISION)(BEAKER) (test code = 2818) 5 % EOSINOPHILS - REL (CELLAVISION)(BEAKER) (test code = 2819) 3 % NEUTROPHILS - ABS (CELLAVISION)(BEAKER) (test code = 2830) 26.52 K/ul 1.78-5.38 H LYMPHOCYTES - ABS (CELLAVISION)(BEAKER) (test code = 2831) 0.89 K/ul 1.32-3.57 L MONOCYTES - ABS (CELLAVISION)(BEAKER) (test code = 2832) 1.49 K/uL 0.30-0.82 H EOSINOPHILS - ABS (CELLAVISION)(BEAKER) (test code = 2834) 0.89 K/uL 0.04-0.54 H TOTAL COUNTED (BEAKER) (test code = 1351) 100 SMUDGE CELLS (BEAKER) (test code = 1371) Present GIANT PLATELETS (BEAKER) (test code = 313) Present POLYCHROMATOPHILLIC RBCS(BEAKER) (test code = 478) 1+ few BASOPHILIC STIPPLING (BEAKER) (test code = 473) Present PLATELET CONCENTRATION (CELLAVISION)(BEAKER) (test code = 3438) Cheryl quate Received comment: User comments: Slide comments: BLOOD GAS, [id number] 06:28:00* Test Item Value Reference Range Interpretation Comments PH ARTERIAL (BEAKER) (test code = 383) 7.41 7.35-7.45 PCO2 ARTERIAL (BEAKER) (test code = 384) 50 mmHg 35-45 H PO2 ARTERIAL (BEAKER) (test code = 385) 100 mmHg 80-90 H O2 SATURATION ARTERIAL (BEAKER) (test code = 386) 97.3 % 96.0 -97.0 H HCO3 ARTERIAL (BEAKER) (test code = 388) 31 mmol/L 21-29 H BASE EXCESS ARTERIAL (BEAKER) (test code = 387) 5.5 mmol/L -2.0-3 .0 H PATIENT TEMPERATURE (BEAKER) (test code = 1818) 38.0 C FIO2 (BEAKER) (test code = 1819) 80.0 % POCT-GLUCOSE [id number] 06:21:00* Test Item Value Reference Range Interpretation Comments POC-GLUCOSE METER (BEAKER) (test code = 1538) 130 mg/dL 70-110 H TESTED AT [place] [id number] [facility] [address] RAD, CHEST, 1 VIEW, NON [id number] 05:21:00Reason for exam:->hypoxiaShould this be performed at the bedside?->YesFINAL REPORT RAD, CHEST, 1 VIEW, NON DEPT INDICATION: hypoxia COMPARISON: June 05, 2018 FINDINGS: Portable frontal view of the chest. IMPRESSION: Support Lines: ET tube is unchanged, 5-6 cm superior to the viktoria. Left-sided central catheter tip terminates overlying the SVC. A second midline linear density may represent an esophageal temperature probe, terminating within the midline approximately 2 cm superior to the viktoria. Lungs and pleura: The lung volumes with basilar crowding. Left sided airspace opacities are unchanged, favored to represent multifocal infection and/or edema. No pneumothorax.Heart and mediastinum: Stable contours. Additional findings: None. Signed: Adri Avendaño Verified Date/Time: 06/06/2018 05:21:30 Reading Location: [address] Neuro Reading Room -GLUCOSE [id number] 05:10:00* Test Item Value Reference Range Interpretation Comments POC-GLUCOSE METER (BEAKER) (test code = 1538) 144 mg/dL 70-110 H TESTED AT [facility] [address] [facility] [address] POCT-GLUCOSE [id number] 04:17:00* Test Item Value Reference Range Interpretation Comments POC-GLUCOSE METER (BEAKER) (test code = 1538) 161 mg/dL 70-110 H TESTED AT [facility] [address] [facility] [address] [id number] 04:06:00* Test Item Value Reference Range Interpretation Comments PHOSPHORUS (BEAKER) (test code = 604) 3.8 mg/dL 2.3-4.7 Check Serum Phosphorus level 4 hours after IV phosphorus replacement or 8 hours after PO replacement completed.[id number] 04:06:00* Test Item Value Reference Range Interpretation Comments MAGNESIUM (BEAKER) (test code = 627) 2.5 mg/dL 1.6-2.6 Check Serum Phosphorus level 4 hours after IV phosphorus replacement or 8 hours after PO replacement completed.BASIC METABOLIC [id number] 04:06:00* Test Item Value Reference Range Interpretation Comments SODIUM (BEAKER) (test code = 381) 149 meq/L 136-145 H POTASSIUM (BEAKER) (test code = 379) 3.7 meq/L 3.5-5.1 CHLORIDE (BEAKER) (test code = 382) 109 meq/L 98-107 H CO2 (BEAKER) (test code = 355) 26 meq/L 22-29 BLOOD UREA NITROGEN (BEAKER) (test code = 354) 69 mg/dL 7-21 H CREATININE (BEAKER) (test code = 358) 2.12 mg/dL 0.57-1.25 H GLUCOSE RANDOM (BEAKER) (test code = 652) 178 mg/dL 70-105 H CALCIUM (BEAKER) (test code = 697) 9.7 mg/dL 8.4-10.2 EGFR (BEAKER) (test code = 1092) 35 mL/min/1.73 sq m ESTIMATED GFR IS NOT ACCURATE CREATININE CLEARANCE IN PREDICTING GLOMERULAR FILTRATION RATE. ESTIMATED GFR IS NOT APPLICABLE FOR DIALYSIS PATIENTS. Check Serum Phosphorus level 4 hours after IV phosphorus replacement or 8 hours after PO replacement completed.Specimen markedly [id number] 04:02:00 * Test Item Value Reference Range Interpretation Comments PARTIAL THROMBOPLASTIN TIME (BEAKER) (test code = 760) 44.7 seconds 22.5-36.0 H PROTHROMBIN [id number] 04:00:00* Test Item Value Reference Range Interpretation Comments PROTIME (BEAKER) (test code = 759) 17.1 seconds 11.7-14.7 H INR (BEAKER) (test code = 370) 1.4 <=5.9 RECOMMENDED COUMADIN/WARFARIN INR THERAPY RANGESSTANDARD DOSE: 2.0 - 3.0 Inclu herb: PROPHYLAXIS for venous thrombosis, systemic embolization; TREATMENT for giulia ous thrombosis and/or pulmonary embolus.HIGH RISK: Target INR is 2.5-3.5 for pat ients with mechanical heart valves.BLOOD GAS, [id number] 03:38:00* Test Item Value Reference Range Interpretation Comments PH ARTERIAL (BEAKER) (test code = 383) 7.44 7.35-7.45 PCO2 ARTERIAL (BEAKER) (test code = 384) 38 mm Hg 35-45 PO2 ARTERIAL (BEAKER) (test code = 385) 97 mmHg 80-90 H O2 SATURATION ARTERIAL (BEAKER) (test code = 386) 97.2 % 96.0 -97.0 H HCO3 ARTERIAL (BEAKER) (test code = 388) 25 mmol/L 21-29 BASE EXCESS ARTERIAL (BEAKER) (test code = 387) 1.8 mmol/L -2.0-3 .0 PATIENT TEMPERATURE (BEAKER) (test code = 1818) 38.5 C FIO2 (BEAKER) (test code = 1819) 70.0 % BASIC METABOLIC [id number] 03:34:00* Test Item Value Reference Range Interpretation Comments SODIUM (BEAKER) (test code = 381) 146 meq/L 136-145 H POTASSIUM (BEAKER) (test code = 379) 3.6 meq/L 3.5-5.1 This is a corrected result. Previous result was 4.1 meq/L on 06/06/2018 at 0015 CDT CHLORIDE (BEAKER) (test code = 382) 107 meq/L 98-107 H This is a corrected result. Previous result was 120 meq/L on 06/06/2018 at 0015 CDT CO2 (BEAKER) (test code = 355) 27 meq/L 22-29 BLOOD UREA NITROGEN (BEAKER) (test code = 354) 68 mg/dL 7-21 H CREATININE (BEAKER) (test code = 358) 2.00 mg/dL 0.57-1.25 H GLUCOSE RANDOM (BEAKER) (test code = 652) 145 mg/dL 70-105 H CALCIUM (BEAKER) (test code = 697) 9.5 mg/dL 8.4-10.2 EGFR (BEAKER) (test code = 1092) 37 mL/min/1.73 sq m ESTIMATED GFR IS NOT ACCURATE CREATININE CLEARANCE IN PREDICTING GLOMERULAR FILTRATION RATE. ESTIMATED GFR IS NOT APPLICABLE FOR DIALYSIS PATIENTS. Specimen markedly ictericPOCT-GLUCOSE [id number] 03:19:00* Test Item Value Reference Range Interpretation Comments POC-GLUCOSE METER (BEAKER) (test code = 1538) 171 mg/dL 70-110 H TESTED AT [address] [address] POCT-GLUCOSE [id number] 02:34:00* Test Item Value Reference Range Interpretation Comments POC-GLUCOSE METER (BEAKER) (test code = 1538) 201 mg/dL 70-110 H TESTED AT [address] [address] POCT-GLUCOSE [id number] 01:17:00* Test Item Value Reference Range Interpretation Comments POC-GLUCOSE METER (BEAKER) (test code = 1538) 174 mg/dL 70-110 H TESTED AT [address] [address] [id number] 00:15:00* Test Item Value Reference Range Interpretation Comments MAGNESIUM (BEAKER) (test code = 627) 2.3 mg/dL 1.6-2.6 POCT-GLUCOSE [id number] 00:10:00* Test Item Value Reference Range Interpretation Comments POC-GLUCOSE METER (BEAKER) (test code = 1538) 143 mg/dL 70-110 H TESTED AT [address] [address] POCT-GLUCOSE [id number] 23:18:00* Test Item Value Reference Range Interpretation Comments POC-GLUCOSE METER (BEAKER) (test code = 1538) 145 mg/dL 70-110 H TESTED AT [address] [address] POCT-GLUCOSE [id number] 22:18:00* Test Item Value Reference Range Interpretation Comments POC-GLUCOSE METER (BEAKER) (test code = 1538) 186 mg/dL 70-110 H TESTED AT [address] [address] POCT-GLUCOSE [id number] 21:23:00* Test Item Value Reference Range Interpretation Comments POC-GLUCOSE METER (BEAKER) (test code = 1538) 220 mg/dL 70-110 H TESTED AT [address] [address] POCT-GLUCOSE [id number] 20:47:00* Test Item Value Reference Range Interpretation Comments POC-GLUCOSE METER (BEAKER) (test code = 1538) 248 mg/dL 70-110 H TESTED AT [address] [address] POCT-GLUCOSE [id number] 19:10:00* Test Item Value Reference Range Interpretation Comments POC-GLUCOSE METER (BEAKER) (test code = 1538) 236 mg/dL 70-110 H TESTED AT [address] [address] POCT-GLUCOSE [id number] 18:16:00* Test Item Value Reference Range Interpretation Comments POC-GLUCOSE METER (BEAKER) (test code = 1538) 275 mg/dL 70-110 H TESTED AT [address] [address] BLOOD GAS, [id number] 17:21:00* Test Item Value Reference Range Interpretation Comments PH ARTERIAL (BEAKER) (test code = 383) 7.49 7.35-7.45 H PCO2 ARTERIAL (BEAKER) (test code = 384) 42 mmHg 35-45 PO2 ARTERIAL (BEAKER) (test code = 385) 67 mmHg 80-90 L O2 SATURATION ARTERIAL (BEAKER) (test code = 386) 93.4 % 96.0 -97.0 L HCO3 ARTERIAL (BEAKER) (test code = 388) 30 mmol/L 21-29 H BASE EXCESS ARTERIAL (BEAKER) (test code = 387) 6.8 mmol/L -2.0-3 .0 H PATIENT TEMPERATURE (BEAKER) (test code = 1818) 38.5 C FIO2 (BEAKER) (test code = 1819) 60.0 % POCT-GLUCOSE [id number] 17:12:00* Test Item Value Reference Range Interpretation Comments POC-GLUCOSE METER (BEAKER) (test code = 1538) 304 mg/dL 70-110 H Will Repeat Test/TESTED AT [address] [address] POCT-GLUCOSE [id number] 16:01:00* Test Item Value Reference Range Interpretation Comments POC-GLUCOSE METER (BEAKER) (test code = 1538) 302 mg/dL 70-110 H TESTED AT [address] [address] BLOOD GAS, [id number] 14:06:00* Test Item Value Reference Range Interpretation Comments PH ARTERIAL (BEAKER) (test code = 383) 7.42 7.35-7.45 PCO2 ARTERIAL (BEAKER) (test code = 384) 48 mmHg 35-45 H PO2 ARTERIAL (BEAKER) (test code = 385) 105 mmHg 80-90 H O2 SATURATION ARTERIAL (BEAKER) (test code = 386) 97.5 % 96.0 -97.0 H HCO3 ARTERIAL (BEAKER) (test code = 388) 30 mmol/L 21-29 H BASE EXCESS ARTERIAL (BEAKER) (test code = 387) 5.0 mmol/L -2.0-3 .0 H PATIENT TEMPERATURE (BEAKER) (test code = 1818) 38.5 C FIO2 (BEAKER) (test code = 1819) 70.0 % [id number] 13:25:00* Test Item Value Reference Range Interpretation Comments POTASSIUM (BEAKER) (test code = 379) 4.1 meq/L 3.5-5.1 Specimen slightly hemolyzed [id number] 13:25:00* Test Item Value Reference Range Interpretation Comments GLUCOSE RANDOM (BEAKER) (test code = 652) 346 mg/dL 70-105 H BASIC METABOLIC [id number] 13:18:00* Test Item Value Reference Range Interpretation Comments SODIUM (BEAKER) (test code = 381) 144 meq/L 136-145 POTASSIUM (BEAKER) (test code = 379) 3.9 meq/L 3.5-5.1 CHLORIDE (BEAKER) (test code = 382) 104 meq/L 98-107 CO2 (BEAKER) (test code = 355) 27 meq/L 22-29 BLOOD UREA NITROGEN (BEAKER) (test code = 354) 60 mg/dL 7-21 H CREATININE (BEAKER) (test code = 358) 1.87 mg/dL 0.57-1.25 H GLUCOSE RANDOM (BEAKER) (test code = 652) 345 mg/dL 70-105 H CALCIUM (BEAKER) (test code = 697) 9.5 mg/dL 8.4-10.2 EGFR (BEAKER) (test code = 1092) 40 mL/min/1.73 sq m ESTIMATED GFR IS NOT ACCURATE CREATININE CLEARANCE IN PREDICTING GLOMERULAR FILTRATION RATE. ESTIMATED GFR IS NOT APPLICABLE FOR DIALYSIS PATIENTS. Specimen markedly [id number] 13:17:00* Test Item Value Reference Range Interpretation Comments MAGNESIUM (BEAKER) (test code = 627) 2.4 mg/dL 1.6-2.6 Specimen slightly hemolyzed BASIC METABOLIC [id number] 13:17:00* Test Item Value Reference Range Interpretation Comments SODIUM (BEAKER) (test code = 381) 145 meq/L 136-145 POTASSIUM (BEAKER) (test code = 379) 4.0 meq/L 3.5-5.1 Specimen slightly hemolyzed CHLORIDE (BEAKER) (test code = 382) 104 meq/L 98-107 CO2 (BEAKER) (test code = 355) 28 meq/L 22-29 BLOOD UREA NITROGEN (BEAKER) (test code = 354) 61 mg/dL 7-21 H CREATININE (BEAKER) (test code = 358) 1.86 mg/dL 0.57-1.25 H Specimen slightly hemolyzed GLUCOSE RANDOM (BEAKER) (test code = 652) 347 mg/dL 70-105 H CALCIUM (BEAKER) (test code = 697) 9.6 mg/dL 8.4-10.2 EGFR (BEAKER) (test code = 1092) 41 mL/min/1.73 sq m ESTIMATED GFR IS NOT ACCURATE CREATININE CLEARANCE IN PREDICTING GLOMERULAR FILTRATION RATE. ESTIMATED GFR IS NOT APPLICABLE FOR DIALYSIS PATIENTS. Specimen markedly ictericPOCT-GLUCOSE [id number] 11:46:00* Test Item Value Reference Range Interpretation Comments POC-GLUCOSE METER (BEAKER) (test code = 1538) 297 mg/dL 70-110 H TESTED AT [address] [address] RAD, CHEST, 1 VIEW, NON [id number] 11:28:00Reason for exam:->resp failureShould this be performed at the bedside?->YesFINAL REPORT AP chest HISTORY: Respiratory failure. COMPARISON: 06/04/2018. IMPRESSION: Supportive lines unchanged. Hypoinflation. Asymmetric interstitial opacities, left greater than right, increased from previous. No pneumothorax. Signed: Eric Andrade MDReport Verified Date/Time: 06/05/2018 11:28:49 Reading Location: [facility] Radiology Reading Room IRATORY PANEL [facility] 2018-06-05 09:47:00* Test Item Value Reference Range Interpretation Comments HUMAN METAPNEUMOVIRUS (BEAKER) (test code = 2683) Not detect ed Not detected, Equivocal RHINOVIRUS (BEAKER) (test code = 2684) Not detected Not detected, E quivocal INFLUENZA A (BEAKER) (test code = 2685) Not detected Not detected, Equivocal INFLUENZA A (NO SUBTYPE) (test code = 3606) Not detect ed, Equivocal INFLUENZA A SUBTYPE H1 (BEAKER) (test code = 2686) Not detected, Equivocal INFLUENZA A SUBTYPE H3 (BEAKER) (test code = 2687) Not detected, Equivocal INFLUENZA A SUBTYPE H1-2009 (BEAKER) (test code = 3198) Not detected, Equivocal INFLUENZA B (BEAKER) (test code = 2688) Not detected Not detected, Equivocal RESPIRATORY SYNCYTIAL VIRUS (BEAKER) (test code = 3199) Not detected Not detected, Equivocal PARAINFLUENZA VIRUS 1 (BEAKER) (test code = 2691) Not detect ed Not detected, Equivocal PARAINFLUENZA VIRUS 2 (BEAKER) (test code = 2692) Not detect ed Not detected, Equivocal PARAINFLUENZA VIRUS 3 (BEAKER) (test code = 2693) Not detect ed Not detected, Equivocal PARAINFLUENZA VIRUS 4 (BEAKER) (test code = 3200) Not detect ed Not detected, Equivocal ADENOVIRUS (BEAKER) (test code = 2694) Not detected Not detected, E quivocal CORONAVIRUS 229E (BEAKER) (test code = 3201) Not detected Not detected, Equivocal CORONAVIRUS HKU1 (BEAKER) (test code = 3202) Not detected Not detected, Equivocal CORONAVIRUS NL63 (BEAKER) (test code = 3203) Not detected Not detected, Equivocal CORONAVIRUS OC43 (BEAKER) (test code = 3204) Not detected Not detected, Equivocal BORDETELLA PERTUSSIS (BEAKER) (test code = 3205) Not detecte d Not detected, Equivocal CHLAMYDOPHILA PNEUMONIAE (BEAKER) (test code = 3206) Not det ected Not detected, Equivocal MYCOPLASMA PNEUMONIAE (BEAKER) (test code = 3207) Not detect ed Not detected, Equivocal Other viruses and bacteria not targeted by this PCR panel cannot be excluded; th erefore clinical correlation and follow up of serology, culture results, and oth er molecular studies is required. The results are not intended to be used as the sole means for clinical diagnosis or patient management decisions. This sample was tested at the [facility] using the [employer] Film[employer] rray Respiratory Panel. It is FDA cleared and has been verified and approved by the [facility] for clinical use on nasal swab specim ens. It is not FDA-cleared for use on bronchial wash/lavage samples. However, fo r this sample type, validation was performed and test characteristics were deter mined and approved, by [facility] for clinical use u nder the Clinical Laboratory Improvement Amendments (CLIA) of 1988 requirements. Therefore, FDA clearance is not required. This laboratory is CLIA-certified an d [employer] ([employer])-accredited to perform high complexity t esting.CBC W/PLT COUNT & AUTO [id number] 07:05:00* Test Item Value Reference Range Interpretation Comments WHITE BLOOD CELL COUNT (BEAKER) (test code = 775) 31.3 K/ L 3.5- 10.5 H RED BLOOD CELL COUNT (BEAKER) (test code = 761) 2.67 M/ L 4.63-6 .08 L HEMOGLOBIN (BEAKER) (test code = 410) 9.6 GM/DL 13.7-17.5 L HEMATOCRIT (BEAKER) (test code = 411) 29.6 % 40.1-51.0 L MEAN CORPUSCULAR VOLUME (BEAKER) (test code = 753) 110.9 fL 79. 0-92.2 H MEAN CORPUSCULAR HEMOGLOBIN (BEAKER) (test code = 751) 36.0 pg 25.7-32.2 H MEAN CORPUSCULAR HEMOGLOBIN CONC (BEAKER) (test code = 752) 32.4 GM/DL 32.3-36.5 RED CELL DISTRIBUTION WIDTH (BEAKER) (test code = 412) 14.8 % 11.6-14.4 H PLATELET COUNT (BEAKER) (test code = 756) 246 K/CU MM 150-450 MEAN PLATELET VOLUME (BEAKER) (test code = 754) 10.3 fL 9.4-12 .4 NUCLEATED RED BLOOD CELLS (BEAKER) (test code = 413) 0 /100 WBC 0 -0 (CELLAVISION MANUAL DIFF)2018-06-05 07:05:00* Test Item Value Reference Range Interpretation Comments NEUTROPHILS - REL (CELLAVISION)(BEAKER) (test code = 2816) 93 % LYMPHOCYTES - REL (CELLAVISION)(BEAKER) (test code = 2817) 3 % MONOCYTES - REL (CELLAVISION)(BEAKER) (test code = 2818) 4 % NEUTROPHILS - ABS (CELLAVISION)(BEAKER) (test code = 2830) 29.11 K/ul 1.78-5.38 H LYMPHOCYTES - ABS (CELLAVISION)(BEAKER) (test code = 2831) 0.94 K/ul 1.32-3.57 L MONOCYTES - ABS (CELLAVISION)(BEAKER) (test code = 2832) 1.25 K/uL 0.30-0.82 H TOTAL COUNTED (BEAKER) (test code = 1351) 100 WBC MORPHOLOGY (BEAKER) (test code = 487) Normal LARGE PLT(BEAKER) (test code = 2156) Present POLYCHROMATOPHILLIC RBCS(BEAKER) (test code = 478) 1+ few HYPOCHROMIA (BEAKER) (test code = 963) 1+ few BASOPHILIC STIPPLING (BEAKER) (test code = 473) Present ARTIFACT (CELLAVISION)(BEAKER) (test code = 3432) Present PLATELET CONCENTRATION (CELLAVISION)(BEAKER) (test code = 3438) Cheryl quate Received comment: User comments: Slide comments: [id number] 06:05:00* Test Item Value Reference Range Interpretation Comments PROCALCITONIN (BEAKER) (test code = 3036) 2.30 ng/mL <0.05 H SEPSIS RISK (ng/mL)Low: 0.05-0.50Intermediate: 0.51-2.00High: > =2.01LACTIC ACID, [id number] 05:39:00* Test Item Value Reference Range Interpretation Comments LACTATE BLOOD ARTERIAL (2) (BEAKER) (test code = 2874) 1.3 mmol/L 0.5-2.2 Specimen slightly hemolyzed Specimen markedly ictericCALCIUM, [id number] 04:12:00* Test Item Value Reference Range Interpretation Comments CALCIUM IONIZED (BEAKER) (test code = 698) 0.98 mmol/L 1.12-1.27 L PH, BLOOD (BEAKER) (test code = 1810) 7.43 Check serum Ionized Calcium level after 4 hours after IV Calcium replacement. BLOOD GAS, [id number] 04:06:00* Test Item Value Reference Range Interpretation Comments PH ARTERIAL (BEAKER) (test code = 383) 7.41 7.35-7.45 PCO2 ARTERIAL (BEAKER) (test code = 384) 48 mmHg 35-45 H PO2 ARTERIAL (BEAKER) (test code = 385) 92 mmHg 80-90 H O2 SATURATION ARTERIAL (BEAKER) (test code = 386) 96.4 % 96.0 -97.0 HCO3 ARTERIAL (BEAKER) (test code = 388) 29 mmol/L 21-29 BASE EXCESS ARTERIAL (BEAKER) (test code = 387) 4.4 mmol/L -2.0-3 .0 H PATIENT TEMPERATURE (BEAKER) (test code = 1818) 38.5 C FIO2 (BEAKER) (test code = 1819) 75.0 % PTH, [id number] 04:05:00* Test Item Value Reference Range Interpretation Comments PARATHYROID HORMONE INTACT (BEAKER) (test code = 577) 183.2 pg/mL 8.5-72.5 H [id number] 04:04:00* Test Item Value Reference Range Interpretation Comments PARTIAL THROMBOPLASTIN TIME (BEAKER) (test code = 760) 48.3 seconds 22.5-36.0 H PROTHROMBIN TIME/[id number] 04:03:00* Test Item Value Reference Range Interpretation Comments PROTIME (BEAKER) (test code = 759) 17.8 seconds 11.7-14.7 H INR (BEAKER) (test code = 370) 1.5 <=5.9 RECOMMENDED COUMADIN/WARFARIN INR THERAPY RANGESSTANDARD DOSE: 2.0 - 3.0 Inclu herb: PROPHYLAXIS for venous thrombosis, systemic embolization; TREATMENT for giulia ous thrombosis and/or pulmonary embolus.HIGH RISK: Target INR is 2.5-3.5 for pat ients with mechanical heart valves.CREATINE KINASE (CK)2018-06-05 04:00:00* Test Item Value Reference Range Interpretation Comments CREATINE KINASE TOTAL (BEAKER) (test code = 380) 90 U/L 29-20 0 POCT-GLUCOSE [id number] 00:47:00* Test Item Value Reference Range Interpretation Comments POC-GLUCOSE METER (BEAKER) (test code = 1538) 277 mg/dL 70-110 H TESTED AT [facility] [address] [facility] [address] CALCIUM, [id number] 00:37:00* Test Item Value Reference Range Interpretation Comments CALCIUM IONIZED (BEAKER) (test code = 698) 0.95 mmol/L 1.12-1.27 L PH, BLOOD (BEAKER) (test code = 1810) 7.44 Check serum Ionized Calcium level after 4 hours after IV Calcium replacement. [id number] 00:36:00* Test Item Value Reference Range Interpretation Comments POTASSIUM (BEAKER) (test code = 379) 3.9 meq/L 3.5-5.1 8 hours after PO replacement [id number] 20:35:00* Test Item Value Reference Range Interpretation Comments MAGNESIUM (BEAKER) (test code = 627) 2.3 mg/dL 1.6-2.6 BASIC METABOLIC [id number] 20:35:00* Test Item Value Reference Range Interpretation Comments SODIUM (BEAKER) (test code = 381) 143 meq/L 136-145 POTASSIUM (BEAKER) (test code = 379) 3.7 meq/L 3.5-5.1 CHLORIDE (BEAKER) (test code = 382) 102 meq/L 98-107 CO2 (BEAKER) (test code = 355) 32 meq/L 22-29 H BLOOD UREA NITROGEN (BEAKER) (test code = 354) 57 mg/dL 7-21 H CREATININE (BEAKER) (test code = 358) 2.12 mg/dL 0.57-1.25 H GLUCOSE RANDOM (BEAKER) (test code = 652) 224 mg/dL 70-105 H CALCIUM (BEAKER) (test code = 697) 8.5 mg/dL 8.4-10.2 EGFR (BEAKER) (test code = 1092) 35 mL/min/1.73 sq m ESTIMATED GFR IS NOT ACCURATE CREATININE CLEARANCE IN PREDICTING GLOMERULAR FILTRATION RATE. ESTIMATED GFR IS NOT APPLICABLE FOR DIALYSIS PATIENTS. Specimen markedly ictericU/S, ABDOMINAL, [id number] 18:10:00Abdomen limited area? Add comment if clarification is needed.->LiverReason for exam:-> Liver failure / septic shockFINAL REPORT HISTORY : Liver failure, septic shock COMPARISON: 06/01/2018 COMMENT : Limited ultrasound examination of the abdomen was performed with attention to the right upper quadrant. The pancreas is not well-visualized secondary to adjacent bowel gas. The liver is enlarged measuring 21.1 cm in length. The hepatic parenchyma is diffusely increased in echogenicity suggestive of hepatic steatosis. No focal hepatic abnormalities identified. The main portal vein is patent with a diameter of 1.2 cm, within normal limits. The gallbladder is contracted but otherwise appears unremarkable. There is no intrahepatic biliary ductal dilatation. The common bile duct is not well-visualized on today's examination but no definite extra hepatic biliary ductal dilatation is appreciated. The right kidney is normal in size measuring 12.2 cm in length with normal cortical thickness and echogenicity. There is no evidence for solid renal mass, hydronephrosis, or shadowing calculi within the right kidney. The visualized IVC and aorta are unremarkable. There is a trace amount of ascites present. IMPRESSION : 1. Hepatomegaly and sonographic findings suggestive of hepatic steatosis.2. Trace ascites. Signed: Regis Ortegaeport Verified Date/Time: 06/04/2018 18:10:46 Reading Location: [address] Ultrasound Reading Room -GLUCOSE METER 2018-06-04 17:48:00* Test Item Value Reference Range Interpretation Comments POC-GLUCOSE METER (BEAKER) (test code = 1538) 294 mg/dL 70-110 H TESTED AT [facility] [address] [place] [address] CALCIUM, [id number] 15:55:00* Test Item Value Reference Range Interpretation Comments CALCIUM IONIZED (BEAKER) (test code = 698) 0.98 mmol/L 1.12-1.27 L PH, BLOOD (BEAKER) (test code = 1810) 7.50 RAD, ABDOMEN/KUB, 1 VIEW [id number] 14:34:00Reason for exam:->Cortrak placementFINAL REPORT Abdomen. CLINICAL HISTORY: Corpak placement. Comparison study: None available. FINDINGS: A single supine view the abdomen demonstrates a feeding tube in place, the distal aspect coiled near the antrum with the tip projecting over the mid stomach. This film is insensitive for the detection of free air. Signed: Andrew Sloan MDReport Verified Date/Time: 06/04/2018 14:34:10 Reading Location: [address] Consult Reading Room C METABOLIC [id number] 14:26:00* Test Item Value Reference Range Interpretation Comments SODIUM (BEAKER) (test code = 381) 141 meq/L 136-145 POTASSIUM (BEAKER) (test code = 379) 3.8 meq/L 3.5-5.1 CHLORIDE (BEAKER) (test code = 382) 100 meq/L 98-107 CO2 (BEAKER) (test code = 355) 31 meq/L 22-29 H BLOOD UREA NITROGEN (BEAKER) (test code = 354) 55 mg/dL 7-21 H CREATININE (BEAKER) (test code = 358) 2.21 mg/dL 0.57-1.25 H GLUCOSE RANDOM (BEAKER) (test code = 652) 241 mg/dL 70-105 H CALCIUM (BEAKER) (test code = 697) 7.9 mg/dL 8.4-10.2 L EGFR (BEAKER) (test code = 1092) 33 mL/min/1.73 sq m ESTIMATED GFR IS NOT ACCURATE CREATININE CLEARANCE IN PREDICTING GLOMERULAR FILTRATION RATE. ESTIMATED GFR IS NOT APPLICABLE FOR DIALYSIS PATIENTS. Specimen markedly ictericLACTIC ACID, [id number] 14:09:00* Test Item Value Reference Range Interpretation Comments LACTATE BLOOD ARTERIAL (2) (BEAKER) (test code = 2874) 1.2 mmol/L 0.5-2.2 Specimen markedly ictericPOCT-GLUCOSE [id number] 13:35:00* Test Item Value Reference Range Interpretation Comments POC-GLUCOSE METER (BEAKER) (test code = 1538) 247 mg/dL 70-110 H TESTED AT [facility] [address] [facility] [address] [id number] 11:32:00* Test Item Value Reference Range Interpretation Comments MAGNESIUM (BEAKER) (test code = 627) 2.1 mg/dL 1.6-2.6 Specimen slightly hemolyzed BASIC METABOLIC [id number] 11:32:00* Test Item Value Reference Range Interpretation Comments SODIUM (BEAKER) (test code = 381) 141 meq/L 136-145 POTASSIUM (BEAKER) (test code = 379) 3.7 meq/L 3.5-5.1 Specimen slightly hemolyzed CHLORIDE (BEAKER) (test code = 382) 99 meq/L 98-107 CO2 (BEAKER) (test code = 355) 30 meq/L 22-29 H BLOOD UREA NITROGEN (BEAKER) (test code = 354) 56 mg/dL 7-21 H CREATININE (BEAKER) (test code = 358) 2.09 mg/dL 0.57-1.25 H Specimen slightly hemolyzed GLUCOSE RANDOM (BEAKER) (test code = 652) 243 mg/dL 70-105 H CALCIUM (BEAKER) (test code = 697) 8.0 mg/dL 8.4-10.2 L EGFR (BEAKER) (test code = 1092) 36 mL/min/1.73 sq m ESTIMATED GFR IS NOT ACCURATE CREATININE CLEARANCE IN PREDICTING GLOMERULAR FILTRATION RATE. ESTIMATED GFR IS NOT APPLICABLE FOR DIALYSIS PATIENTS. Specimen markedly ictericVANCOMYCIN LEVEL, [id number] 11:20:00* Test Item Value Reference Range Interpretation Comments VANCOMYCIN RANDOM (BEAKER) (test code = 523) 27.0 ug/mL Reference Range: No NormalsURINALYSIS W/ REFLEX URINE [id number] 11:15:00 * Test Item Value Reference Range Interpretation Comments COLOR (BEAKER) (test code = 470) Yellow CLARITY (BEAKER) (test code = 469) Hazy SPECIFIC GRAVITY UA (BEAKER) (test code = 468) 1.010 1.001-1 .035 PH UA (BEAKER) (test code = 467) 5.5 5.0-8.0 PROTEIN UA (BEAKER) (test code = 464) 20 mg/dL Negative A GLUCOSE UA (BEAKER) (test code = 365) Negative Negative KETONES UA (BEAKER) (test code = 371) Negative Negative BILIRUBIN UA (BEAKER) (test code = 462) Positive Negative A BLOOD UA (BEAKER) (test code = 461) Small Negative A NITRITE UA (BEAKER) (test code = 465) Negative Negative LEUKOCYTE ESTERASE UA (BEAKER) (test code = 466) Negative Negat mumtaz UROBILINOGEN UA (BEAKER) (test code = 463) 0.2 mg/dL 0.2-1.0 RBC UA (BEAKER) (test code = 519) 1 /HPF WBC UA (BEAKER) (test code = 520) 3 /HPF MUCUS (BEAKER) (test code = 1574) Rare SQUAMOUS EPITHELIAL (BEAKER) (test code = 516) < /HPF HYALINE CASTS (BEAKER) (test code = 514) 10 /LPF GRANULAR CASTS (BEAKER) (test code = 515) 8 /LPF AMORPHOUS CRYSTALS (BEAKER) (test code = 1584) Rare SOURCE(BEAKER) (test code = 2795) RAD, CHEST, 1 VIEW, NON [id number] 11:01:00Reason for exam:->ETT advancement, L IJ CVC placement, R IJ CVC removalShould this be performed at the bedside?->YesFINAL REPORT TECHNIQUE: Frontal chest radiographs dated 06/04/2018. CLINICAL HISTORY: Endotracheal tube advancement COMPARISON STUDY: Chest radiograph dated 06/04/2018 IMPRESSION:Endotracheal tube is unchanged in position. There is a new left-sided vascular line with the tip projected over the superior vena cava at the level of the viktoria. Right-sided vascular line and enteric tube have been removed. There is stable linear atelectasis throughout the lungs. No pleural effusion or pneumothorax. Cardiomediastinal silhouette is normal in size. No pulmonary edema. No fracture. Signed: Sb Shields Verified Date/Time: 06/04/2018 11:01:19 Reading Location: [facility] Radiology Reading Room C METABOLIC [id number] 10:59:00* Test Item Value Reference Range Interpretation Comments SODIUM (BEAKER) (test code = 381) 140 meq/L 136-145 POTASSIUM (BEAKER) (test code = 379) 3.6 meq/L 3.5-5.1 CHLORIDE (BEAKER) (test code = 382) 99 meq/L 98-107 CO2 (BEAKER) (test code = 355) 30 meq/L 22-29 H BLOOD UREA NITROGEN (BEAKER) (test code = 354) 56 mg/dL 7-21 H CREATININE (BEAKER) (test code = 358) 2.20 mg/dL 0.57-1.25 H GLUCOSE RANDOM (BEAKER) (test code = 652) 245 mg/dL 70-105 H CALCIUM (BEAKER) (test code = 697) 7.8 mg/dL 8.4-10.2 L EGFR (BEAKER) (test code = 1092) 33 mL/min/1.73 sq m ESTIMATED GFR IS NOT ACCURATE CREATININE CLEARANCE IN PREDICTING GLOMERULAR FILTRATION RATE. ESTIMATED GFR IS NOT APPLICABLE FOR DIALYSIS PATIENTS. Specimen markedly [id number] 10:53:00* Test Item Value Reference Range Interpretation Comments AMYLASE (BEAKER) (test code = 349) 32 U/L 25-125 Specimen markedly [id number] 10:53:00* Test Item Value Reference Range Interpretation Comments LIPASE (BEAKER) (test code = 749) 27 U/L 8-78 Specimen markedly ictericBLOOD GAS, [id number] 10:51:00* Test Item Value Reference Range Interpretation Comments PH ARTERIAL (BEAKER) (test code = 383) 7.49 7.35-7.45 H PCO2 ARTERIAL (BEAKER) (test code = 384) 42 mmHg 35-45 PO2 ARTERIAL (BEAKER) (test code = 385) 105 mmHg 80-90 H O2 SATURATION ARTERIAL (BEAKER) (test code = 386) 97.9 % 96.0 -97.0 H HCO3 ARTERIAL (BEAKER) (test code = 388) 30 mmol/L 21-29 H BASE EXCESS ARTERIAL (BEAKER) (test code = 387) 6.9 mmol/L -2.0-3 .0 H PATIENT TEMPERATURE (BEAKER) (test code = 1818) 38.5 C FIO2 (BEAKER) (test code = 1819) 100.0 % ANTI-NUCLEAR ANTIBODY (TOM)2018-06-04 09:46:00* Test Item Value Reference Range Interpretation Comments ANTI-NUCLEAR ANTIBODY (TOM) (BEAKER) (test code = 418) Negative Negative Test performed by IFA method.Test performed by IFA method.HEMOGLOBIN A1C 2018-06-04 09:45:00* Test Item Value Reference Range Interpretation Comments HEMOGLOBIN A1C (BEAKER) (test code = 368) 5.3 % 4.3-6.1 [id number] 09:15:00* Test Item Value Reference Range Interpretation Comments PROCALCITONIN (BEAKER) (test code = 3036) 2.96 ng/mL <0.05 H SEPSIS RISK (ng/mL)Low: 0.05-0.50Intermediate: 0.51-2.00High: > =2.01RAD, CHEST, 1 VIEW, NON [id number] 09:01:00Reason for exam:->ARDSFINAL REPORT TECHNIQUE: Frontal chest radiograph dated . CLINICAL HISTORY: ARDS COMPARISON STUDY: Chest radiograph dated 9 IMPRESSION:Life support tubes and lines are unchanged. There is stable atelect asis in the left lung base. No pleural effusion or pneumothorax. Cardiomediastin al silhouette is normal in size. No pulmonary edema. No fracture. Signed: Sb Don Verified Date/Time: 06/04/2018 09:01:21 Reading Location : [facility] Radiology Reading Room IC ACID, [id number] 08:49:00* Test Item Value Reference Range Interpretation Comments LACTATE BLOOD ARTERIAL (2) (BEAKER) (test code = 2874) 1.4 mmol/L 0.5-2.2 Specimen moderately ictericBLOOD GAS, [id number] 05:26:00* Test Item Value Reference Range Interpretation Comments PH ARTERIAL (BEAKER) (test code = 383) 7.53 7.35-7.45 H PCO2 ARTERIAL (BEAKER) (test code = 384) 39 mmHg 35-45 PO2 ARTERIAL (BEAKER) (test code = 385) 97 mmHg 80-90 H O2 SATURATION ARTERIAL (BEAKER) (test code = 386) 97.4 % 96.0 -97.0 H HCO3 ARTERIAL (BEAKER) (test code = 388) 31 mmol/L 21-29 H BASE EXCESS ARTERIAL (BEAKER) (test code = 387) 8.6 mmol/L -2.0-3 .0 H PATIENT TEMPERATURE (BEAKER) (test code = 1818) 39.5 C FIO2 (BEAKER) (test code = 1819) 80.0 % COMPREHENSIVE METABOLIC [id number] 04:41:00* Test Item Value Reference Range Interpretation Comments TOTAL PROTEIN (BEAKER) (test code = 770) 6.4 gm/dL 6.0-8.3 ALBUMIN (BEAKER) (test code = 1145) 2.7 g/dL 3.5-5.0 L ALKALINE PHOSPHATASE (BEAKER) (test code = 346) 133 U/L 40-150 BILIRUBIN TOTAL (BEAKER) (test code = 377) 12.9 mg/dL 0.2-1.2 H SODIUM (BEAKER) (test code = 381) 140 meq/L 136-145 POTASSIUM (BEAKER) (test code = 379) 3.5 meq/L 3.5-5.1 CHLORIDE (BEAKER) (test code = 382) 98 meq/L 98-107 CO2 (BEAKER) (test code = 355) 30 meq/L 22-29 H BLOOD UREA NITROGEN (BEAKER) (test code = 354) 54 mg/dL 7-21 H CREATININE (BEAKER) (test code = 358) 2.29 mg/dL 0.57-1.25 H GLUCOSE RANDOM (BEAKER) (test code = 652) 226 mg/dL 70-105 H CALCIUM (BEAKER) (test code = 697) 8.2 mg/dL 8.4-10.2 L AST (SGOT) (BEAKER) (test code = 353) 407 U/L 5-34 H ALT (SGPT) (BEAKER) (test code = 347) 148 U/L 6-55 H EGFR (BEAKER) (test code = 1092) 32 mL/min/1.73 sq m ESTIMATED GFR IS NOT ACCURATE CREATININE CLEARANCE IN PREDICTING GLOMERULAR FILTRATION RATE. ESTIMATED GFR IS NOT APPLICABLE FOR DIALYSIS PATIENTS. Specimen markedly ictericHEPATIC FUNCTION [id number] 04:41:00* Test Item Value Reference Range Interpretation Comments TOTAL PROTEIN (BEAKER) (test code = 770) 6.4 gm/dL 6.0-8.3 ALBUMIN (BEAKER) (test code = 1145) 2.7 g/dL 3.5-5.0 L BILIRUBIN TOTAL (BEAKER) (test code = 377) 12.9 mg/dL 0.2-1.2 H BILIRUBIN DIRECT (BEAKER) (test code = 706) 10.0 mg/dL 0.1-0.5 H ALKALINE PHOSPHATASE (BEAKER) (test code = 346) 133 U/L 40-150 AST (SGOT) (BEAKER) (test code = 353) 407 U/L 5-34 H ALT (SGPT) (BEAKER) (test code = 347) 148 U/L 6-55 H Specimen markedly ictericLACTIC ACID, [id number] 04:32:00* Test Item Value Reference Range Interpretation Comments LACTATE BLOOD ARTERIAL (2) (BEAKER) (test code = 2874) 1.6 mmol/L 0.5-2.2 Specimen markedly [id number] 04:31:00* Test Item Value Reference Range Interpretation Comments FIBRINOGEN LEVEL (BEAKER) (test code = 658) 592 mg/dl 225-434 H PT/[id number] 04:31:00* Test Item Value Reference Range Interpretation Comments PROTIME (BEAKER) (test code = 759) 17.0 seconds 11.7-14.7 H INR (BEAKER) (test code = 370) 1.4 <=5.9 PARTIAL THROMBOPLASTIN TIME (BEAKER) (test code = 760) 41.5 seconds 22.5-36.0 H RECOMMENDED COUMADIN/WARFARIN INR THERAPY RANGESSTANDARD DOSE: 2.0 - 3.0 Inclu herb: PROPHYLAXIS for venous thrombosis, systemic embolization; TREATMENT for giulia ous thrombosis and/or pulmonary embolus.HIGH RISK: Target INR is 2.5-3.5 for pat ients with mechanical heart valves.[id number] 04:31:00* Test Item Value Reference Range Interpretation Comments PARTIAL THROMBOPLASTIN TIME (BEAKER) (test code = 760) 41.5 seconds 22.5-36.0 H PROTHROMBIN TIME/[id number] 04:30:00* Test Item Value Reference Range Interpretation Comments PROTIME (BEAKER) (test code = 759) 17.0 seconds 11.7-14.7 H INR (BEAKER) (test code = 370) 1.4 <=5.9 RECOMMENDED COUMADIN/WARFARIN INR THERAPY RANGESSTANDARD DOSE: 2.0 - 3.0 Inclu herb: PROPHYLAXIS for venous thrombosis, systemic embolization; TREATMENT for giulia ous thrombosis and/or pulmonary embolus.HIGH RISK: Target INR is 2.5-3.5 for pat ients with mechanical heart valves.CBC W/PLT COUNT & AUTO [id number] 04:15:00* Test Item Value Reference Range Interpretation Comments WHITE BLOOD CELL COUNT (BEAKER) (test code = 775) 16.4 K/ L 3.5- 10.5 H RED BLOOD CELL COUNT (BEAKER) (test code = 761) 2.95 M/ L 4.63-6 .08 L HEMOGLOBIN (BEAKER) (test code = 410) 10.6 GM/DL 13.7-17.5 L HEMATOCRIT (BEAKER) (test code = 411) 31.8 % 40.1-51.0 L MEAN CORPUSCULAR VOLUME (BEAKER) (test code = 753) 107.8 fL 79. 0-92.2 H MEAN CORPUSCULAR HEMOGLOBIN (BEAKER) (test code = 751) 35.9 pg 25.7-32.2 H MEAN CORPUSCULAR HEMOGLOBIN CONC (BEAKER) (test code = 752) 33.3 GM/DL 32.3-36.5 RED CELL DISTRIBUTION WIDTH (BEAKER) (test code = 412) 14.9 % 11.6-14.4 H PLATELET COUNT (BEAKER) (test code = 756) 313 K/CU MM 150-450 MEAN PLATELET VOLUME (BEAKER) (test code = 754) 10.4 fL 9.4-12 .4 NUCLEATED RED BLOOD CELLS (BEAKER) (test code = 413) 1 /100 WBC 0 -0 H NEUTROPHILS RELATIVE PERCENT (BEAKER) (test code = 429) 83 % LYMPHOCYTES RELATIVE PERCENT (BEAKER) (test code = 430) 6 % MONOCYTES RELATIVE PERCENT (BEAKER) (test code = 431) 7 % EOSINOPHILS RELATIVE PERCENT (BEAKER) (test code = 432) 0 % BASOPHILS RELATIVE PERCENT (BEAKER) (test code = 437) 0 % NEUTROPHILS ABSOLUTE COUNT (BEAKER) (test code = 670) 13.62 K/ L 1.78-5.38 H LYMPHOCYTES ABSOLUTE COUNT (BEAKER) (test code = 414) 1.04 K/ L 1.32-3.57 L MONOCYTES ABSOLUTE COUNT (BEAKER) (test code = 415) 1.15 K/ L 0. 30-0.82 H EOSINOPHILS ABSOLUTE COUNT (BEAKER) (test code = 416) 0.00 K/ L 0.04-0.54 L BASOPHILS ABSOLUTE COUNT (BEAKER) (test code = 417) 0.04 K/ L 0. 01-0.08 IMMATURE GRANULOCYTES-RELATIVE PERCENT (BEAKER) (test code = 2801) 3 % 0-1 H POCT-GLUCOSE [id number] 23:44:00* Test Item Value Reference Range Interpretation Comments POC-GLUCOSE METER (BEAKER) (test code = 1538) 195 mg/dL 70-110 H TESTED AT [facility] [address] [facility] [address] RAD, CHEST, 1 VIEW, NON [id number] 21:14:00Reason for exam:->respiratory failure/hypoxiaShould this be performed at the bedside?->YesFINAL REPORT EXAM: Chest one view COMPARISON: June 03, 2018 CLINICAL HISTORY: Respiratory failure FINDINGS: The tubes and lines are unchanged in position. The cardiac size is within normal limits. Bibasilar pulmonary opacities are again noted with interval improvement in the left lung base but interval worsening in the right lung base. These may represent pneumonitis. There is no evidence of pleural effusion or pneumothorax. The regional osseous structures are unremarkable. Signed: Sadiq Haines MDReport Verified Date/Time: 09/2018 21:14:49 Reading Location: [address] Consult Reading Room Electro nically signed by: SADIQ HAINES M.D. on 06/03/2018 09:14 PM FERRITIN 2018-06-03 21:11:00* Test Item Value Reference Range Interpretation Comments FERRITIN (BEAKER) (test code = 361) 1898 ng/mL 5-275 H HEPATITIS B SURFACE [id number] 20:52:00* Test Item Value Reference Range Interpretation Comments HEPATITIS B SURFACE ANTIBODY (BEAKER) (test code = 647) < mIU/mL <8.0 HEPATITIS B SURFACE [id number] 20:51:00* Test Item Value Reference Range Interpretation Comments HEPATITIS B SURFACE ANTIGEN (2) (BEAKER) (test code = 2585) Nonreactive Nonreactive HEPATITIS C [id number] 20:51:00* Test Item Value Reference Range Interpretation Comments HEPATITIS C ANTIBODY (BEAKER) (test code = 367) Nonreactive Nonrea ctive HEPATITIS B CORE ANTIBODY, [id number] 20:51:00* Test Item Value Reference Range Interpretation Comments HEPATITIS B CORE TOTAL ANTIBODY (BEAKER) (test code = 497) N onreactive Nonreactive [id number] 20:48:00* Test Item Value Reference Range Interpretation Comments MAGNESIUM (BEAKER) (test code = 627) 1.9 mg/dL 1.6-2.6 BASIC METABOLIC [id number] 20:48:00* Test Item Value Reference Range Interpretation Comments SODIUM (BEAKER) (test code = 381) 140 meq/L 136-145 POTASSIUM (BEAKER) (test code = 379) 3.5 meq/L 3.5-5.1 CHLORIDE (BEAKER) (test code = 382) 98 meq/L 98-107 CO2 (BEAKER) (test code = 355) 30 meq/L 22-29 H BLOOD UREA NITROGEN (BEAKER) (test code = 354) 52 mg/dL 7-21 H CREATININE (BEAKER) (test code = 358) 2.01 mg/dL 0.57-1.25 H GLUCOSE RANDOM (BEAKER) (test code = 652) 138 mg/dL 70-105 H CALCIUM (BEAKER) (test code = 697) 8.3 mg/dL 8.4-10.2 L EGFR (BEAKER) (test code = 1092) 37 mL/min/1.73 sq m ESTIMATED GFR IS NOT ACCURATE CREATININE CLEARANCE IN PREDICTING GLOMERULAR FILTRATION RATE. ESTIMATED GFR IS NOT APPLICABLE FOR DIALYSIS PATIENTS. Specimen markedly ictericHEPATITIS A ANTIBODY, [id number] 20:45:00* Test Item Value Reference Range Interpretation Comments HEPATITIS A IGG ANTIBODY (BEAKER) (test code = 2797) Reactive N onreactive A ALPHA FETOPROTEIN (AFP), TUMOR [id number] 20:44:00* Test Item Value Reference Range Interpretation Comments ALPHA-FETOPROTEIN (BEAKER) (test code = 1094) 6.3 ng/mL <10.0 HEPATITIS B CORE ANTIBODY, [id number] 20:44:00* Test Item Value Reference Range Interpretation Comments HEPATITIS B CORE IGM ANTIBODY (BEAKER) (test code = 645) Non reactive Nonreactive HEPATITIS A ANTIBODY, [id number] 20:44:00* Test Item Value Reference Range Interpretation Comments HEPATITIS A IGM ANTIBODY (BEAKER) (test code = 498) Nonreactive No nreactive IRON, TIBC, % SAT. (WITHOUT FERRITIN)2018-06-03 20:30:00* Test Item Value Reference Range Interpretation Comments IRON (BEAKER) (test code = 547) 49.0 ug/dL 40.0-160.0 TOTAL IRON BINDING CAPACITY (BEAKER) (test code = 769) 124 ug/dL 250-450 L IRON % SATURATION (2) (BEAKER) (test code = 2590) 40 % 20-5 5 BLOOD GAS, [id number] 20:25:00* Test Item Value Reference Range Interpretation Comments PH ARTERIAL (BEAKER) (test code = 383) 7.50 7.35-7.45 H PCO2 ARTERIAL (BEAKER) (test code = 384) 43 mmHg 35-45 PO2 ARTERIAL (BEAKER) (test code = 385) 79 mmHg 80-90 L O2 SATURATION ARTERIAL (BEAKER) (test code = 386) 95.2 % 96.0 -97.0 L HCO3 ARTERIAL (BEAKER) (test code = 388) 32 mmol/L 21-29 H BASE EXCESS ARTERIAL (BEAKER) (test code = 387) 9.0 mmol/L -2.0-3 .0 H PATIENT TEMPERATURE (BEAKER) (test code = 1818) 39.5 C FIO2 (BEAKER) (test code = 1819) 100.0 % SPUTUM CULTURE + GRAM [id number] 19:38:00* Test Item Value Reference Range Interpretation Comments CULTURE (BEAKER) (test code = 1095) <1+ Normal respiratory chase pr esent GRAM STAIN RESULT (BEAKER) (test code = 1123) 1+ White blood cells seen GRAM STAIN RESULT (BEAKER) (test code = 76780) 0-5 epithelial cells GRAM STAIN RESULT (BEAKER) (test code = 63909) <1+ gram negative ro ds URINALYSIS W/ REFLEX URINE [id number] 18:20:00* Test Item Value Reference Range Interpretation Comments COLOR (BEAKER) (test code = 470) Yellow CLARITY (BEAKER) (test code = 469) Hazy SPECIFIC GRAVITY UA (BEAKER) (test code = 468) 1.007 1.001-1 .035 PH UA (BEAKER) (test code = 467) 6.0 5.0-8.0 PROTEIN UA (BEAKER) (test code = 464) Negative Negative GLUCOSE UA (BEAKER) (test code = 365) Negative Negative KETONES UA (BEAKER) (test code = 371) Negative Negative BILIRUBIN UA (BEAKER) (test code = 462) Negative Negative BLOOD UA (BEAKER) (test code = 461) Moderate Negative A NITRITE UA (BEAKER) (test code = 465) Negative Negative LEUKOCYTE ESTERASE UA (BEAKER) (test code = 466) Small Negat mumtaz A UROBILINOGEN UA (BEAKER) (test code = 463) 0.2 mg/dL 0.2-1.0 RBC UA (BEAKER) (test code = 519) 30 /HPF WBC UA (BEAKER) (test code = 520) 7 /HPF BACTERIA (BEAKER) (test code = 517) Rare MUCUS (BEAKER) (test code = 1574) Occasional SQUAMOUS EPITHELIAL (BEAKER) (test code = 516) 1 /HPF HYALINE CASTS (BEAKER) (test code = 514) 3 /LPF SOURCE(BEAKER) (test code = 2795) BLOOD GAS, [id number] 17:17:00* Test Item Value Reference Range Interpretation Comments PH ARTERIAL (BEAKER) (test code = 383) 7.51 7.35-7.45 H PCO2 ARTERIAL (BEAKER) (test code = 384) 41 mmHg 35-45 PO2 ARTERIAL (BEAKER) (test code = 385) 76 mmHg 80-90 L O2 SATURATION ARTERIAL (BEAKER) (test code = 386) 95.1 % 96.0 -97.0 L HCO3 ARTERIAL (BEAKER) (test code = 388) 32 mmol/L 21-29 H BASE EXCESS ARTERIAL (BEAKER) (test code = 387) 8.6 mmol/L -2.0-3 .0 H PATIENT TEMPERATURE (BEAKER) (test code = 1818) 39.3 C FIO2 (BEAKER) (test code = 1819) 60.0 % [id number] 16:17:00* Test Item Value Reference Range Interpretation Comments ALPHA-1 ANTITRYPSIN (BEAKER) (test code = 502) > mg/dL 90.00-2 00.00 H [id number] 14:26:00* Test Item Value Reference Range Interpretation Comments MAGNESIUM (BEAKER) (test code = 627) 2.0 mg/dL 1.6-2.6 BASIC METABOLIC [id number] 14:26:00* Test Item Value Reference Range Interpretation Comments SODIUM (BEAKER) (test code = 381) 139 meq/L 136-145 POTASSIUM (BEAKER) (test code = 379) 3.3 meq/L 3.5-5.1 L CHLORIDE (BEAKER) (test code = 382) 98 meq/L 98-107 CO2 (BEAKER) (test code = 355) 29 meq/L 22-29 BLOOD UREA NITROGEN (BEAKER) (test code = 354) 51 mg/dL 7-21 H CREATININE (BEAKER) (test code = 358) 1.96 mg/dL 0.57-1.25 H GLUCOSE RANDOM (BEAKER) (test code = 652) 149 mg/dL 70-105 H CALCIUM (BEAKER) (test code = 697) 8.6 mg/dL 8.4-10.2 EGFR (BEAKER) (test code = 1092) 38 mL/min/1.73 sq m ESTIMATED GFR IS NOT ACCURATE CREATININE CLEARANCE IN PREDICTING GLOMERULAR FILTRATION RATE. ESTIMATED GFR IS NOT APPLICABLE FOR DIALYSIS PATIENTS. Specimen markedly ictericBLOOD GAS, [id number] 13:25:00* Test Item Value Reference Range Interpretation Comments PH ARTERIAL (BEAKER) (test code = 383) 7.52 7.35-7.45 H PCO2 ARTERIAL (BEAKER) (test code = 384) 39 mmHg 35-45 PO2 ARTERIAL (BEAKER) (test code = 385) 65 mmHg 80-90 L O2 SATURATION ARTERIAL (BEAKER) (test code = 386) 94.6 % 96.0 -97.0 L HCO3 ARTERIAL (BEAKER) (test code = 388) 31 mmol/L 21-29 H BASE EXCESS ARTERIAL (BEAKER) (test code = 387) 7.7 mmol/L -2.0-3 .0 H PATIENT TEMPERATURE (BEAKER) (test code = 1818) 36.9 C FIO2 (BEAKER) (test code = 1819) 40.0 % VANCOMYCIN LEVEL, [id number] 11:06:00* Test Item Value Reference Range Interpretation Comments VANCOMYCIN TROUGH (BEAKER) (test code = 522) 45.6 ug/mL 10.0-20.0 HH BLOOD GAS, [id number] 09:54:00* Test Item Value Reference Range Interpretation Comments PH ARTERIAL (BEAKER) (test code = 383) 7.52 7.35-7.45 H PCO2 ARTERIAL (BEAKER) (test code = 384) 38 mmHg 35-45 PO2 ARTERIAL (BEAKER) (test code = 385) 55 mmHg 80-90 L O2 SATURATION ARTERIAL (BEAKER) (test code = 386) 93.9 % 96.0 -97.0 L HCO3 ARTERIAL (BEAKER) (test code = 388) 31 mmol/L 21-29 H BASE EXCESS ARTERIAL (BEAKER) (test code = 387) 6.6 mmol/L -2.0-3 .0 H PATIENT TEMPERATURE (BEAKER) (test code = 1818) 34.7 C FIO2 (BEAKER) (test code = 1819) 40.0 % RAD, CHEST, 1 VIEW, NON [id number] 05:04:00Reason for exam:->ARDSFINAL REPORT Chest one view. Clinical history: ARDS Comp arison: Chest radiograph 06/02/2018. Technique: A single frontal view of the chest was obtained. Findings:Endotracheal and feeding tubes are in satisfactory posi tions. There is a right IJ central venous catheter with tip in the proximal righ t atrium.The cardiomediastinal contours are stable. There are low lung volumes. There is mild diffuse interstitial prominence, nonspecific. There are streaky an d patchy opacities in the bilateral lower lobes, left greater than right which m ay represent atelectasis and/or pneumonia. There is no pleural effusion or pneum othorax. Signed: Nicolás Ceballos MDReport Verified Date/Time: 06/03/2018 05:04:55 Reading Location: [facility] B1 C013Y CT Body Reading Room REHENSIVE METABOLIC PANEL 2018-06-03 04:29:00* Test Item Value Reference Range Interpretation Comments TOTAL PROTEIN (BEAKER) (test code = 770) 6.6 gm/dL 6.0-8.3 ALBUMIN (BEAKER) (test code = 1145) 2.8 g/dL 3.5-5.0 L ALKALINE PHOSPHATASE (BEAKER) (test code = 346) 116 U/L 40-150 BILIRUBIN TOTAL (BEAKER) (test code = 377) 13.7 mg/dL 0.2-1.2 H SODIUM (BEAKER) (test code = 381) 134 meq/L 136-145 L POTASSIUM (BEAKER) (test code = 379) 3.8 meq/L 3.5-5.1 CHLORIDE (BEAKER) (test code = 382) 98 meq/L 98-107 CO2 (BEAKER) (test code = 355) 24 meq/L 22-29 BLOOD UREA NITROGEN (BEAKER) (test code = 354) 51 mg/dL 7-21 H CREATININE (BEAKER) (test code = 358) 2.01 mg/dL 0.57-1.25 H GLUCOSE RANDOM (BEAKER) (test code = 652) 250 mg/dL 70-105 H CALCIUM (BEAKER) (test code = 697) 8.5 mg/dL 8.4-10.2 AST (SGOT) (BEAKER) (test code = 353) 270 U/L 5-34 H ALT (SGPT) (BEAKER) (test code = 347) 98 U/L 6-55 H EGFR (BEAKER) (test code = 1092) 37 mL/min/1.73 sq m ESTIMATED GFR IS NOT ACCURATE CREATININE CLEARANCE IN PREDICTING GLOMERULAR FILTRATION RATE. ESTIMATED GFR IS NOT APPLICABLE FOR DIALYSIS PATIENTS. Specimen markedly ictericB-TYPE NATRIURETIC FACTOR (BNP)2018-06-03 04:08:00* Test Item Value Reference Range Interpretation Comments B-TYPE NATRIURETIC PEPTIDE (BEAKER) (test code = 700) 405 pg/mL 0-100 H LACTIC ACID, [id number] 04:01:00* Test Item Value Reference Range Interpretation Comments LACTATE BLOOD ARTERIAL (2) (BEAKER) (test code = 2874) 0.7 mmol/L 0.5-2.2 Specimen moderately ictericCBC W/PLT COUNT & AUTO [id number] 03:57:00* Test Item Value Reference Range Interpretation Comments WHITE BLOOD CELL COUNT (BEAKER) (test code = 775) 11.5 K/ L 3.5- 10.5 H RED BLOOD CELL COUNT (BEAKER) (test code = 761) 2.81 M/ L 4.63-6 .08 L HEMOGLOBIN (BEAKER) (test code = 410) 10.2 GM/DL 13.7-17.5 L HEMATOCRIT (BEAKER) (test code = 411) 30.3 % 40.1-51.0 L MEAN CORPUSCULAR VOLUME (BEAKER) (test code = 753) 107.8 fL 79. 0-92.2 H MEAN CORPUSCULAR HEMOGLOBIN (BEAKER) (test code = 751) 36.3 pg 25.7-32.2 H MEAN CORPUSCULAR HEMOGLOBIN CONC (BEAKER) (test code = 752) 33.7 GM/DL 32.3-36.5 RED CELL DISTRIBUTION WIDTH (BEAKER) (test code = 412) 13.5 % 11.6-14.4 PLATELET COUNT (BEAKER) (test code = 756) 354 K/CU MM 150-450 MEAN PLATELET VOLUME (BEAKER) (test code = 754) 10.2 fL 9.4-12 .4 NUCLEATED RED BLOOD CELLS (BEAKER) (test code = 413) 0 /100 WBC 0 -0 NEUTROPHILS RELATIVE PERCENT (BEAKER) (test code = 429) 87 % LYMPHOCYTES RELATIVE PERCENT (BEAKER) (test code = 430) 4 % MONOCYTES RELATIVE PERCENT (BEAKER) (test code = 431) 6 % EOSINOPHILS RELATIVE PERCENT (BEAKER) (test code = 432) 0 % BASOPHILS RELATIVE PERCENT (BEAKER) (test code = 437) 0 % NEUTROPHILS ABSOLUTE COUNT (BEAKER) (test code = 670) 10.04 K/ L 1.78-5.38 H LYMPHOCYTES ABSOLUTE COUNT (BEAKER) (test code = 414) 0.44 K/ L 1.32-3.57 L MONOCYTES ABSOLUTE COUNT (BEAKER) (test code = 415) 0.64 K/ L 0. 30-0.82 EOSINOPHILS ABSOLUTE COUNT (BEAKER) (test code = 416) 0.00 K/ L 0.04-0.54 L BASOPHILS ABSOLUTE COUNT (BEAKER) (test code = 417) 0.02 K/ L 0. 01-0.08 IMMATURE GRANULOCYTES-RELATIVE PERCENT (BEAKER) (test code = 2801) 3 % 0-1 H [id number] 03:48:00* Test Item Value Reference Range Interpretation Comments FIBRINOGEN LEVEL (BEAKER) (test code = 658) 644 mg/dl 225-434 H [id number] 03:48:00* Test Item Value Reference Range Interpretation Comments PROTIME (BEAKER) (test code = 759) 17.3 seconds 11.7-14.7 H INR (BEAKER) (test code = 370) 1.4 <=5.9 PARTIAL THROMBOPLASTIN TIME (BEAKER) (test code = 760) 46.9 seconds 22.5-36.0 H RECOMMENDED COUMADIN/WARFARIN INR THERAPY RANGESSTANDARD DOSE: 2.0 - 3.0 Inclu herb: PROPHYLAXIS for venous thrombosis, systemic embolization; TREATMENT for giulia ous thrombosis and/or pulmonary embolus.HIGH RISK: Target INR is 2.5-3.5 for pat ients with mechanical heart valves.BLOOD GAS, [id number] 03:36:00* Test Item Value Reference Range Interpretation Comments PH ARTERIAL (BEAKER) (test code = 383) 7.44 7.35-7.45 PCO2 ARTERIAL (BEAKER) (test code = 384) 41 mmHg 35-45 PO2 ARTERIAL (BEAKER) (test code = 385) 95 mmHg 80-90 H O2 SATURATION ARTERIAL (BEAKER) (test code = 386) 97.6 % 96.0 -97.0 H HCO3 ARTERIAL (BEAKER) (test code = 388) 27 mmol/L 21-29 BASE EXCESS ARTERIAL (BEAKER) (test code = 387) 2.6 mmol/L -2.0-3 .0 PATIENT TEMPERATURE (BEAKER) (test code = 1818) 36.4 C FIO2 (BEAKER) (test code = 1819) 40.0 % POCT-GLUCOSE [id number] 02:21:00* Test Item Value Reference Range Interpretation Comments POC-GLUCOSE METER (BEAKER) (test code = 1538) 225 mg/dL 70-110 H TESTED AT [facility] [address] [facility] [address] [id number] 21:48:00* Test Item Value Reference Range Interpretation Comments MAGNESIUM (BEAKER) (test code = 627) 2.2 mg/dL 1.6-2.6 BASIC METABOLIC [id number] 21:48:00* Test Item Value Reference Range Interpretation Comments SODIUM (BEAKER) (test code = 381) 136 meq/L 136-145 POTASSIUM (BEAKER) (test code = 379) 4.0 meq/L 3.5-5.1 CHLORIDE (BEAKER) (test code = 382) 99 meq/L 98-107 CO2 (BEAKER) (test code = 355) 25 meq/L 22-29 BLOOD UREA NITROGEN (BEAKER) (test code = 354) 49 mg/dL 7-21 H CREATININE (BEAKER) (test code = 358) 2.00 mg/dL 0.57-1.25 H GLUCOSE RANDOM (BEAKER) (test code = 652) 227 mg/dL 70-105 H CALCIUM (BEAKER) (test code = 697) 8.4 mg/dL 8.4-10.2 EGFR (BEAKER) (test code = 1092) 37 mL/min/1.73 sq m ESTIMATED GFR IS NOT ACCURATE CREATININE CLEARANCE IN PREDICTING GLOMERULAR FILTRATION RATE. ESTIMATED GFR IS NOT APPLICABLE FOR DIALYSIS PATIENTS. Specimen markedly [id number] 17:35:00* Test Item Value Reference Range Interpretation Comments MAGNESIUM (BEAKER) (test code = 627) 2.8 mg/dL 1.6-2.6 H Specimen moderately hemolyzed [id number] 17:35:00* Test Item Value Reference Range Interpretation Comments POTASSIUM (BEAKER) (test code = 379) 4.5 meq/L 3.5-5.1 Specimen moderately hemolyzed [id number] 15:15:00* Test Item Value Reference Range Interpretation Comments PROCALCITONIN (BEAKER) (test code = 3036) 1.58 ng/mL <0.05 H SEPSIS RISK (ng/mL)Low: 0.05-0.50Intermediate: 0.51-2.00High: > =2.01B-TYPE NATRIURETIC FACTOR (BNP)2018-06-02 14:09:00* Test Item Value Reference Range Interpretation Comments B-TYPE NATRIURETIC PEPTIDE (BEAKER) (test code = 700) 286 pg/mL 0-100 H [id number] 13:51:00* Test Item Value Reference Range Interpretation Comments PARTIAL THROMBOPLASTIN TIME (BEAKER) (test code = 760) 42.9 seconds 22.5-36.0 H PROTHROMBIN TIME/[id number] 13:50:00* Test Item Value Reference Range Interpretation Comments PROTIME (BEAKER) (test code = 759) 16.2 seconds 11.7-14.7 H INR (BEAKER) (test code = 370) 1.3 <=5.9 RECOMMENDED COUMADIN/WARFARIN INR THERAPY RANGESSTANDARD DOSE: 2.0 - 3.0 Inclu herb: PROPHYLAXIS for venous thrombosis, systemic embolization; TREATMENT for giulia ous thrombosis and/or pulmonary embolus.HIGH RISK: Target INR is 2.5-3.5 for pat ients with mechanical heart valves.BLOOD GAS, [id number] 13:33:00* Test Item Value Reference Range Interpretation Comments PH ARTERIAL (BEAKER) (test code = 383) 7.55 7.35-7.45 H PCO2 ARTERIAL (BEAKER) (test code = 384) 27 mmHg 35-45 L PO2 ARTERIAL (BEAKER) (test code = 385) 76 mmHg 80-90 L O2 SATURATION ARTERIAL (BEAKER) (test code = 386) 97.0 % 96.0 -97.0 HCO3 ARTERIAL (BEAKER) (test code = 388) 23 mmol/L 21-29 BASE EXCESS ARTERIAL (BEAKER) (test code = 387) 1.5 mmol/L -2.0-3 .0 PATIENT TEMPERATURE (BEAKER) (test code = 1818) 36.4 C FIO2 (BEAKER) (test code = 1819) 40.0 % GLUCOSE-STAT [id number] 13:33:00* Test Item Value Reference Range Interpretation Comments GLUCOSE RANDOM (BEAKER) (test code = 652) 174 mg/dL 70-110 H TSH/FREE T4 IF [id number] 07:15:00* Test Item Value Reference Range Interpretation Comments THYROID STIMULATING HORMONE (BEAKER) (test code = 772) 1.76 uIU/mL 0.35-4.94 COMPREHENSIVE METABOLIC [id number] 03:52:00* Test Item Value Reference Range Interpretation Comments TOTAL PROTEIN (BEAKER) (test code = 770) 6.5 gm/dL 6.0-8.3 ALBUMIN (BEAKER) (test code = 1145) 2.8 g/dL 3.5-5.0 L ALKALINE PHOSPHATASE (BEAKER) (test code = 346) 120 U/L 40-150 BILIRUBIN TOTAL (BEAKER) (test code = 377) 17.4 mg/dL 0.2-1.2 H SODIUM (BEAKER) (test code = 381) 133 meq/L 136-145 L POTASSIUM (BEAKER) (test code = 379) 4.0 meq/L 3.5-5.1 CHLORIDE (BEAKER) (test code = 382) 97 meq/L 98-107 L CO2 (BEAKER) (test code = 355) 23 meq/L 22-29 BLOOD UREA NITROGEN (BEAKER) (test code = 354) 42 mg/dL 7-21 H CREATININE (BEAKER) (test code = 358) 1.86 mg/dL 0.57-1.25 H GLUCOSE RANDOM (BEAKER) (test code = 652) 183 mg/dL 70-105 H CALCIUM (BEAKER) (test code = 697) 8.4 mg/dL 8.4-10.2 AST (SGOT) (BEAKER) (test code = 353) 178 U/L 5-34 H ALT (SGPT) (BEAKER) (test code = 347) 46 U/L 6-55 EGFR (BEAKER) (test code = 1092) 41 mL/min/1.73 sq m ESTIMATED GFR IS NOT ACCURATE CREATININE CLEARANCE IN PREDICTING GLOMERULAR FILTRATION RATE. ESTIMATED GFR IS NOT APPLICABLE FOR DIALYSIS PATIENTS. Specimen markedly ictericRAD, CHEST, 1 VIEW, NON [id number] 03:35:00Reason for exam:->ARDSFINAL REPORT Chest one view. Clinical history: ARDS Comparison: Chest radiograph 06/01/2018 Technique: A single frontal view of the chest was obtained. Findings/impression:Endotracheal and feeding tubes are in satisfactory positions. There is a right IJ central venous catheter with tip in the distal SVCThe cardiomediastinal contours are stable. There is diffuse bilateral interstitial prominence, nonspecific. There are bibasilar airspace opacities, left greater than right which may represent pneumonia and/or atelectasis. There is no pneumothorax or pleural effusion. Signed: Nicolás Ceballos Verified Date/Time: 06/02/2018 03:35:13 Reading Location: [address] Body Reading Room /[id number] 03:12:00* Test Item Value Reference Range Interpretation Comments PROTIME (BEAKER) (test code = 759) 16.2 seconds 11.7-14.7 H INR (BEAKER) (test code = 370) 1.3 <=5.9 PARTIAL THROMBOPLASTIN TIME (BEAKER) (test code = 760) 47.4 seconds 22.5-36.0 H RECOMMENDED COUMADIN/WARFARIN INR THERAPY RANGESSTANDARD DOSE: 2.0 - 3.0 Inclu herb: PROPHYLAXIS for venous thrombosis, systemic embolization; TREATMENT for giulia ous thrombosis and/or pulmonary embolus.HIGH RISK: Target INR is 2.5-3.5 for pat ients with mechanical heart valves.[id number] 03:03:00* Test Item Value Reference Range Interpretation Comments FIBRINOGEN LEVEL (BEAKER) (test code = 658) 695 mg/dl 225-434 H LACTIC ACID, [id number] 03:02:00* Test Item Value Reference Range Interpretation Comments LACTATE BLOOD ARTERIAL (2) (BEAKER) (test code = 2874) 0.7 mmol/L 0.5-2.2 Specimen markedly ictericCBC W/PLT COUNT & AUTO [id number] 02:53:00 * Test Item Value Reference Range Interpretation Comments WHITE BLOOD CELL COUNT (BEAKER) (test code = 775) 14.9 K/ L 3.5- 10.5 H RED BLOOD CELL COUNT (BEAKER) (test code = 761) 2.57 M/ L 4.63-6 .08 L HEMOGLOBIN (BEAKER) (test code = 410) 9.4 GM/DL 13.7-17.5 L HEMATOCRIT (BEAKER) (test code = 411) 27.9 % 40.1-51.0 L MEAN CORPUSCULAR VOLUME (BEAKER) (test code = 753) 108.6 fL 79. 0-92.2 H MEAN CORPUSCULAR HEMOGLOBIN (BEAKER) (test code = 751) 36.6 pg 25.7-32.2 H MEAN CORPUSCULAR HEMOGLOBIN CONC (BEAKER) (test code = 752) 33.7 GM/DL 32.3-36.5 RED CELL DISTRIBUTION WIDTH (BEAKER) (test code = 412) 13.4 % 11.6-14.4 PLATELET COUNT (BEAKER) (test code = 756) 318 K/CU MM 150-450 MEAN PLATELET VOLUME (BEAKER) (test code = 754) 10.1 fL 9.4-12 .4 NUCLEATED RED BLOOD CELLS (BEAKER) (test code = 413) 0 /100 WBC 0 -0 NEUTROPHILS RELATIVE PERCENT (BEAKER) (test code = 429) 88 % LYMPHOCYTES RELATIVE PERCENT (BEAKER) (test code = 430) 4 % MONOCYTES RELATIVE PERCENT (BEAKER) (test code = 431) 5 % EOSINOPHILS RELATIVE PERCENT (BEAKER) (test code = 432) 0 % BASOPHILS RELATIVE PERCENT (BEAKER) (test code = 437) 0 % NEUTROPHILS ABSOLUTE COUNT (BEAKER) (test code = 670) 13.08 K/ L 1.78-5.38 H LYMPHOCYTES ABSOLUTE COUNT (BEAKER) (test code = 414) 0.66 K/ L 1.32-3.57 L MONOCYTES ABSOLUTE COUNT (BEAKER) (test code = 415) 0.81 K/ L 0. 30-0.82 EOSINOPHILS ABSOLUTE COUNT (BEAKER) (test code = 416) 0.00 K/ L 0.04-0.54 L BASOPHILS ABSOLUTE COUNT (BEAKER) (test code = 417) 0.01 K/ L 0. 01-0.08 IMMATURE GRANULOCYTES-RELATIVE PERCENT (BEAKER) (test code = 2801) 2 % 0-1 H BLOOD GAS, [id number] 02:53:00* Test Item Value Reference Range Interpretation Comments PH ARTERIAL (BEAKER) (test code = 383) 7.47 7.35-7.45 H PCO2 ARTERIAL (BEAKER) (test code = 384) 36 mmHg 35-45 PO2 ARTERIAL (BEAKER) (test code = 385) 92 mmHg 80-90 H O2 SATURATION ARTERIAL (BEAKER) (test code = 386) 97.5 % 96.0 -97.0 H HCO3 ARTERIAL (BEAKER) (test code = 388) 26 mmol/L 21-29 BASE EXCESS ARTERIAL (BEAKER) (test code = 387) 1.9 mmol/L -2.0-3 .0 PATIENT TEMPERATURE (BEAKER) (test code = 1818) 36.8 C FIO2 (BEAKER) (test code = 1819) 60.0 % BLOOD GAS, [id number] 00:24:00* Test Item Value Reference Range Interpretation Comments PH ARTERIAL (BEAKER) (test code = 383) 7.45 7.35-7.45 PCO2 ARTERIAL (BEAKER) (test code = 384) 38 mmHg 35-45 PO2 ARTERIAL (BEAKER) (test code = 385) 105 mmHg 80-90 H O2 SATURATION ARTERIAL (BEAKER) (test code = 386) 98.2 % 96.0 -97.0 H HCO3 ARTERIAL (BEAKER) (test code = 388) 25 mmol/L 21-29 BASE EXCESS ARTERIAL (BEAKER) (test code = 387) 1.1 mmol/L -2.0-3 .0 PATIENT TEMPERATURE (BEAKER) (test code = 1818) 36.2 C FIO2 (BEAKER) (test code = 1819) 60.0 % BASIC METABOLIC [id number] 17:38:00* Test Item Value Reference Range Interpretation Comments SODIUM (BEAKER) (test code = 381) 132 meq/L 136-145 L POTASSIUM (BEAKER) (test code = 379) 4.2 meq/L 3.5-5.1 CHLORIDE (BEAKER) (test code = 382) 96 meq/L 98-107 L CO2 (BEAKER) (test code = 355) 23 meq/L 22-29 BLOOD UREA NITROGEN (BEAKER) (test code = 354) 36 mg/dL 7-21 H CREATININE (BEAKER) (test code = 358) 1.81 mg/dL 0.57-1.25 H GLUCOSE RANDOM (BEAKER) (test code = 652) 192 mg/dL 70-105 H CALCIUM (BEAKER) (test code = 697) 8.5 mg/dL 8.4-10.2 EGFR (BEAKER) (test code = 1092) 42 mL/min/1.73 sq m ESTIMATED GFR IS NOT ACCURATE CREATININE CLEARANCE IN PREDICTING GLOMERULAR FILTRATION RATE. ESTIMATED GFR IS NOT APPLICABLE FOR DIALYSIS PATIENTS. Specimen markedly ictericBLOOD GAS, [id number] 17:10:00* Test Item Value Reference Range Interpretation Comments PH ARTERIAL (BEAKER) (test code = 383) 7.49 7.35-7.45 H PCO2 ARTERIAL (BEAKER) (test code = 384) 35 mmHg 35-45 PO2 ARTERIAL (BEAKER) (test code = 385) 98 mmHg 80-90 H O2 SATURATION ARTERIAL (BEAKER) (test code = 386) 98.0 % 96.0 -97.0 H HCO3 ARTERIAL (BEAKER) (test code = 388) 26 mmol/L 21-29 BASE EXCESS ARTERIAL (BEAKER) (test code = 387) 2.4 mmol/L -2.0-3 .0 PATIENT TEMPERATURE (BEAKER) (test code = 1818) 36.1 C FIO2 (BEAKER) (test code = 1819) 60.0 % Blood [id number] 17:08:00* Test Item Value Reference Range Interpretation Comments Blood Culture (test code = 62095001) NO GROWTH AFTER 5 DAYS, FINAL REPORT [facility] [place], TXU/S, ABDOMINAL, [id number] 15:11:00Abdomen limited area? Add comment if clarification is needed.-> LiverReason for exam:->susppected cirrhosisFINAL REPORT TECHNIQUE: Grayscale ultrasound of the right abdomen. INDICATION: susppected cirrhosis. COMPARISON: CT from 06/01/2018. FINDINGS: MIDLINE VASCULATURE: The aorta and inferior vena cava were not well seen due to patient body habitus and overlying bowel gas. LIVER: The liver is diffusely increased in echogenicity. Liver contour is smooth. The main portal vein is patent and measures 1.1 cm. BILIARY:Gallbladder: The gallbladder is nearly collapsed. No gallstones or sludge. No gallbladder wall thickening, pericholecystic fluid, or distention. Negative sonographic Cooper sign.The common bile duct was not well seen due to overlying bowel gas and patient body habitus. PANCREAS: Not well visualized due to overlying bowel gas. PERITONEUM: No free fluid. RIGHT KIDNEY: Normal in size. No hydronephrosis. No sonographically evident solid mass lesion. IMPRESSION: Diffuse fatty infiltration of the liver without definitive signs for cirrhosis. Signed: Kyle Rae MDReport Verified Date/Time: 06/01/2018 15:11:50 Reading Location: [facility] C013X Ortho Consult Reading Room A GLUTAMYL TRANSFERASE (GGT) 2018-06-01 14:41:00* Test Item Value Reference Range Interpretation Comments GAMMA GLUTAMYL TRANSFERASE (BEAKER) (test code = 364) 136 U/L 9-64 H Specimen markedly ictericBLOOD GAS, [id number] 14:18:00* Test Item Value Reference Range Interpretation Comments PH ARTERIAL (BEAKER) (test code = 383) 7.42 7.35-7.45 PCO2 ARTERIAL (BEAKER) (test code = 384) 43 mmHg 35-45 PO2 ARTERIAL (BEAKER) (test code = 385) 93 mmHg 80-90 H O2 SATURATION ARTERIAL (BEAKER) (test code = 386) 97.4 % 96.0 -97.0 H HCO3 ARTERIAL (BEAKER) (test code = 388) 28 mmol/L 21-29 BASE EXCESS ARTERIAL (BEAKER) (test code = 387) 2.6 mmol/L -2.0-3 .0 PATIENT TEMPERATURE (BEAKER) (test code = 1818) 36.4 C FIO2 (BEAKER) (test code = 1819) 60.0 % CT, CHEST, WITHOUT [id number] 13:38:00FINAL REPORT TECHNIQUE: CT of the chest, abdomen, and pelvis WITHOUT intravenous contrast and WITHOUT oral contrast. Dose modulation, iterative reconstruction, and/or weight-based adjustment of the mA/kV was utilized to reduce the radiation dose to as low as reasonably achievable. INDICATION: ARDS. Abdominal swelling, ascites suspected COMPARISON: Chest radiograph from the same day. FINDINGS: ABSENCE OF INTRAVENOUS CONTRAST DECREASES SENSITIVITY FOR DETECTION OF FOCAL LESIONS AND VASCULAR PATHOLOGY. LINES/TUBES: Endotracheal tube with tip above the viktoria. Right PICC with tip in the right atrium. NG tube with tip at the gastric pylorus. LUNGS AND AIRWAYS: Bilateral medial and mainly centrilobular nodular and groundglass opacities. Bibasilar atelectasis. One left apical pulmonary nodule which appears solid different the rest measures 0.97 m on axial image 18.PLEURA: Small bilateral pleural effusions.HEART AND MEDIASTINUM: The visualized thyroid gland is normal. No significant mediastinal, hilar, or axi llary lymphadenopathy. The heart and pericardium are within normal limits. HEPAT OBILIARY: The liver is enlarged and diffusely decreased in attenuation No focal hepatic lesions. The gallbladder contains hyperdense material which is likely a vicarious excretion of contrast. No biliary ductal dilatation.SPLEEN: 15 cm sple nomegaly.PANCREAS: No focal masses or ductal dilatation. ADRENALS: No adrenal no dules.KIDNEYS/URETERS: No hydronephrosis or masses. Evaluate for stone is subopt imal given the contrast in the renal collecting system. Residual contrast enhanc ement kidney is concerning for acute renal failure.PELVIC ORGANS/BLADDER: The bl adder is collapsed by Randolph catheter. PERITONEUM/RETROPERITONEUM: Small volume p elvic ascites. No free air.LYMPH NODES: Upper abdominal lymph nodes measure up t o 1.1 cm in short axis dimension.VESSELS: Unremarkable. GI TRACT: NG tube with t ip at the gastric pylorus. BONES AND SOFT TISSUES: Unremarkable. IMPRESSION: 1. Small volume pelvic ascites. 2.Small bilateral pleural effusions with pulmonary edema. 3.The persistent enhancement of the kidneys is concerning for acute renal failure. 4.Hepatosplenomegaly with diffuse fatty infiltration of the liver. The prominent upper abdominal lymph nodes are likely reactive to the liver disease. 5.A left apical pulmonary nodule which appears different from the rest measures 0.9 cm. While this is likely within the spectrum of the pulmonary edema, consid er a follow-up in three months to document resolution. Signed: Kyle Rae MDRepo rt Verified Date/Time: 06/01/2018 13:38:09 Reading Location: [facility] B1 C013X Ortho Consult Reading Room Electronically signed by: KYLE RAE MD on 07/2018 01:[address], [id number] 13:38:00FINAL REPORT TECHNIQUE: CT of the chest, abdomen, and pelvis WITHOUT intravenous contrast and WITHOUT oral contrast. Dose modulation, iterative reconstruction, and/or weight-based adjustment of the mA/kV was utilized to reduce the radiation dose to as low as reasonably achievable. INDICATION: ARDS. Abdominal swelling, ascites suspected COMPARISON: Chest radiograph from the same day. FINDINGS: ABSENCE OF INTRAVENOUS CONTRAST DECREASES SENSITIVITY FOR DETECTION OF FOCAL LESIONS AND VASCULAR PATHOLOGY. LINES/TUBES: Endotracheal tube with tip above the viktoria. Right PICC with tip in the right atrium. NG tube with tip at the gastric pylorus. LUNGS AND AIRWAYS: Bilateral medial and mainly centrilobular nodular and groundglass opacities. Bibasilar atelectasis. One left apical pulmonary nodule which appears solid different the rest measures 0.97 m on axial image 18.PLEURA: Small bilateral pleural effusions.HEART AND MEDIASTINUM: The visualized thyroid gland is normal. No significant mediastinal, hilar, or axi llary lymphadenopathy. The heart and pericardium are within normal limits. HEPAT OBILIARY: The liver is enlarged and diffusely decreased in attenuation No focal hepatic lesions. The gallbladder contains hyperdense material which is likely a vicarious excretion of contrast. No biliary ductal dilatation.SPLEEN: 15 cm sple nomegaly.PANCREAS: No focal masses or ductal dilatation. ADRENALS: No adrenal no dules.KIDNEYS/URETERS: No hydronephrosis or masses. Evaluate for stone is subopt imal given the contrast in the renal collecting system. Residual contrast enhanc ement kidney is concerning for acute renal failure.PELVIC ORGANS/BLADDER: The bl adder is collapsed by Randolph catheter. PERITONEUM/RETROPERITONEUM: Small volume p elvic ascites. No free air.LYMPH NODES: Upper abdominal lymph nodes measure up t o 1.1 cm in short axis dimension.VESSELS: Unremarkable. GI TRACT: NG tube with t ip at the gastric pylorus. BONES AND SOFT TISSUES: Unremarkable. IMPRESSION: 1. Small volume pelvic ascites. 2.Small bilateral pleural effusions with pulmonary edema. 3.The persistent enhancement of the kidneys is concerning for acute renal failure. 4.Hepatosplenomegaly with diffuse fatty infiltration of the liver. The prominent upper abdominal lymph nodes are likely reactive to the liver disease. 5.A left apical pulmonary nodule which appears different from the rest measures 0.9 cm. While this is likely within the spectrum of the pulmonary edema, consid er a follow-up in three months to document resolution. Signed: Kyle Rae MDRepo rt Verified Date/Time: 06/01/2018 13:38:09 Reading Location: [facility] C013X [facility] Consult Reading Room Electronically signed by: KYLE RAE MD on 07/2018 01:[address], BRAIN, WITHOUT [id number] 13:10:00FINAL REPORT CT, BRAIN, WITHOUT CONTRAST CLINICAL INDICATION: r/o cerebral hemorrahage COMPARISON: None TECHNIQUE: Noncontrast axial CT imaging of the brain and skull. DOSE REDUCTION: Dose modulation, iterative rec onstruction, and/or weight-based adjustment of the mA/kV was utilized to reduce the radiation dose to as low as reasonably achievable. FINDINGS:There is no pare nchymal or extra-axial hemorrhage. The midline is normally positioned. Oquendo-whit e distinction is preserved. 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 O sseous structures are unremarkable. There is minimal paranasal sinus disease, wh ich may be partially due to the intubation status. IMPRESSION: No acute intracr anial abnormality. If there is persistent clinical concern for intracranial path ology, MR examination is recommended for further characterization. Signed: Chrissy ennis JR, Robert MDReport Verified Date/Time: 06/01/2018 13:10:29 Reading Lo cation: [facility] B1 C013V Neuro Reading Room D GAS, [id number] 11:45:00* Test Item Value Reference Range Interpretation Comments PH ARTERIAL (BEAKER) (test code = 383) 7.42 7.35-7.45 PCO2 ARTERIAL (BEAKER) (test code = 384) 43 mmHg 35-45 PO2 ARTERIAL (BEAKER) (test code = 385) 114 mmHg 80-90 H O2 SATURATION ARTERIAL (BEAKER) (test code = 386) 98.3 % 96.0 -97.0 H HCO3 ARTERIAL (BEAKER) (test code = 388) 27 mmol/L 21-29 BASE EXCESS ARTERIAL (BEAKER) (test code = 387) 2.1 mmol/L -2.0-3 .0 PATIENT TEMPERATURE (BEAKER) (test code = 1818) 36.6 C FIO2 (BEAKER) (test code = 1819) 80.0 % URINALYSIS W/ REFLEX URINE [id number] 11:13:00* Test Item Value Reference Range Interpretation Comments COLOR (BEAKER) (test code = 470) Dark Yellow CLARITY (BEAKER) (test code = 469) Clear SPECIFIC GRAVITY UA (BEAKER) (test code = 468) 1.024 1.001-1 .035 PH UA (BEAKER) (test code = 467) 5.5 5.0-8.0 PROTEIN UA (BEAKER) (test code = 464) 10 mg/dL Negative A GLUCOSE UA (BEAKER) (test code = 365) Negative Negative KETONES UA (BEAKER) (test code = 371) Negative Negative BILIRUBIN UA (BEAKER) (test code = 462) Positive Negative A BLOOD UA (BEAKER) (test code = 461) Small Negative A NITRITE UA (BEAKER) (test code = 465) Negative Negative LEUKOCYTE ESTERASE UA (BEAKER) (test code = 466) Trace Negat mumtaz A UROBILINOGEN UA (BEAKER) (test code = 463) 3.0 mg/dL 0.2-1.0 H RBC UA (BEAKER) (test code = 519) 1 /HPF WBC UA (BEAKER) (test code = 520) 3 /HPF MUCUS (BEAKER) (test code = 1574) Rare SQUAMOUS EPITHELIAL (BEAKER) (test code = 516) < /HPF HYALINE CASTS (BEAKER) (test code = 514) 5 /LPF SOURCE(BEAKER) (test code = 2795) THROMBOELASTOGRAPH (TEG)2018-06-01 10:37:00* Test Item Value Reference Range Interpretation Comments TEG ACTIVATED CLOTTING TIME (BEAKER) (test code = 1407) 8.6 minutes 4.0-7.0 H TEG FIBRINOGEN ACTIVITY (BEAKER) (test code = 1408) 77.9 degrees 61 .0-73.0 H TEG PLT. AGGREGATION (BEAKER) (test code = 1409) 85.6 MM 55.0- 65.0 H TEG FIBRINOLYSIS (BEAKER) (test code = 1410) 1.5 % 0.0-5.0 TGH ACTIVATED CLOTTING TIME (BEAKER) (test code = 1411) 8.4 minutes 4.0-7.0 H TGH FIBRINOGEN ACTIVITY (BEAKER) (test code = 1412) 78.2 degrees 61 .0-73.0 H TGH PLT. AGGREGATION (BEAKER) (test code = 1413) 79.2 MM 55.0- 65.0 H TGH FIBRINOLYSIS (BEAKER) (test code = 1414) 16.4 % 0.0-5.0 H COMPREHENSIVE METABOLIC [id number] 10:13:00* Test Item Value Reference Range Interpretation Comments TOTAL PROTEIN (BEAKER) (test code = 770) 6.6 gm/dL 6.0-8.3 ALBUMIN (BEAKER) (test code = 1145) 2.5 g/dL 3.5-5.0 L ALKALINE PHOSPHATASE (BEAKER) (test code = 346) 145 U/L 40-150 BILIRUBIN TOTAL (BEAKER) (test code = 377) 20.3 mg/dL 0.2-1.2 H SODIUM (BEAKER) (test code = 381) 132 meq/L 136-145 L POTASSIUM (BEAKER) (test code = 379) 4.8 meq/L 3.5-5.1 CHLORIDE (BEAKER) (test code = 382) 94 meq/L 98-107 L CO2 (BEAKER) (test code = 355) 25 meq/L 22-29 BLOOD UREA NITROGEN (BEAKER) (test code = 354) 31 mg/dL 7-21 H CREATININE (BEAKER) (test code = 358) 1.86 mg/dL 0.57-1.25 H GLUCOSE RANDOM (BEAKER) (test code = 652) 183 mg/dL 70-105 H CALCIUM (BEAKER) (test code = 697) 8.4 mg/dL 8.4-10.2 AST (SGOT) (BEAKER) (test code = 353) 141 U/L 5-34 H ALT (SGPT) (BEAKER) (test code = 347) 35 U/L 6-55 EGFR (BEAKER) (test code = 1092) 41 mL/min/1.73 sq m ESTIMATED GFR IS NOT ACCURATE CREATININE CLEARANCE IN PREDICTING GLOMERULAR FILTRATION RATE. ESTIMATED GFR IS NOT APPLICABLE FOR DIALYSIS PATIENTS. Specimen markedly ictericLACTATE DEHYDROGENASE (LDH)2018-06-01 10:08:00* Test Item Value Reference Range Interpretation Comments LACTATE DEHYDROGENASE (BEAKER) (test code = 635) 248 U/L 125-2 20 H HEPATIC FUNCTION [id number] 09:21:00* Test Item Value Reference Range Interpretation Comments TOTAL PROTEIN (BEAKER) (test code = 770) 6.5 gm/dL 6.0-8.3 ALBUMIN (BEAKER) (test code = 1145) 2.5 g/dL 3.5-5.0 L BILIRUBIN TOTAL (BEAKER) (test code = 377) 19.8 mg/dL 0.2-1.2 H BILIRUBIN DIRECT (BEAKER) (test code = 706) 14.6 mg/dL 0.1-0.5 H ALKALINE PHOSPHATASE (BEAKER) (test code = 346) 132 U/L 40-150 AST (SGOT) (BEAKER) (test code = 353) 129 U/L 5-34 H ALT (SGPT) (BEAKER) (test code = 347) 32 U/L 6-55 Specimen markedly [id number] 09:20:00* Test Item Value Reference Range Interpretation Comments FIBRINOGEN LEVEL (BEAKER) (test code = 658) 729 mg/dl 225-434 H PT/[id number] 09:20:00* Test Item Value Reference Range Interpretation Comments PROTIME (BEAKER) (test code = 759) 16.9 seconds 11.7-14.7 H INR (BEAKER) (test code = 370) 1.4 <=5.9 PARTIAL THROMBOPLASTIN TIME (BEAKER) (test code = 760) 43.9 seconds 22.5-36.0 H RECOMMENDED COUMADIN/WARFARIN INR THERAPY RANGESSTANDARD DOSE: 2.0 - 3.0 Inclu herb: PROPHYLAXIS for venous thrombosis, systemic embolization; TREATMENT for giulia ous thrombosis and/or pulmonary embolus.HIGH RISK: Target INR is 2.5-3.5 for pat ients with mechanical heart valves.[id number] 09:20:00* Test Item Value Reference Range Interpretation Comments PHOSPHORUS (BEAKER) (test code = 604) 3.9 mg/dL 2.3-4.7 [id number] 09:20:00* Test Item Value Reference Range Interpretation Comments MAGNESIUM (BEAKER) (test code = 627) 2.3 mg/dL 1.6-2.6 LACTIC ACID, [id number] 09:17:00* Test Item Value Reference Range Interpretation Comments LACTATE BLOOD ARTERIAL (2) (BEAKER) (test code = 2874) 0.7 mmol/L 0.5-2.2 Specimen markedly ictericCBC W/PLT COUNT & AUTO [id number] 09:13:00 * Test Item Value Reference Range Interpretation Comments WHITE BLOOD CELL COUNT (BEAKER) (test code = 775) 18.7 K/ L 3.5- 10.5 H RED BLOOD CELL COUNT (BEAKER) (test code = 761) 2.67 M/ L 4.63-6 .08 L HEMOGLOBIN (BEAKER) (test code = 410) 9.6 GM/DL 13.7-17.5 L HEMATOCRIT (BEAKER) (test code = 411) 29.3 % 40.1-51.0 L MEAN CORPUSCULAR VOLUME (BEAKER) (test code = 753) 109.7 fL 79. 0-92.2 H MEAN CORPUSCULAR HEMOGLOBIN (BEAKER) (test code = 751) 36.0 pg 25.7-32.2 H MEAN CORPUSCULAR HEMOGLOBIN CONC (BEAKER) (test code = 752) 32.8 GM/DL 32.3-36.5 RED CELL DISTRIBUTION WIDTH (BEAKER) (test code = 412) 13.4 % 11.6-14.4 PLATELET COUNT (BEAKER) (test code = 756) 359 K/CU MM 150-450 MEAN PLATELET VOLUME (BEAKER) (test code = 754) 10.2 fL 9.4-12 .4 NUCLEATED RED BLOOD CELLS (BEAKER) (test code = 413) 0 /100 WBC 0 -0 NEUTROPHILS RELATIVE PERCENT (BEAKER) (test code = 429) 89 % LYMPHOCYTES RELATIVE PERCENT (BEAKER) (test code = 430) 5 % MONOCYTES RELATIVE PERCENT (BEAKER) (test code = 431) 3 % EOSINOPHILS RELATIVE PERCENT (BEAKER) (test code = 432) 0 % BASOPHILS RELATIVE PERCENT (BEAKER) (test code = 437) 0 % NEUTROPHILS ABSOLUTE COUNT (BEAKER) (test code = 670) 16.68 K/ L 1.78-5.38 H LYMPHOCYTES ABSOLUTE COUNT (BEAKER) (test code = 414) 0.84 K/ L 1.32-3.57 L MONOCYTES ABSOLUTE COUNT (BEAKER) (test code = 415) 0.61 K/ L 0. 30-0.82 EOSINOPHILS ABSOLUTE COUNT (BEAKER) (test code = 416) 0.00 K/ L 0.04-0.54 L BASOPHILS ABSOLUTE COUNT (BEAKER) (test code = 417) 0.05 K/ L 0. 01-0.08 IMMATURE GRANULOCYTES-RELATIVE PERCENT (BEAKER) (test code = 2801) 3 % 0-1 H OXYGEN SATURATION, [id number] 09:07:00* Test Item Value Reference Range Interpretation Comments O2 SATURATION (MEASURED) (BEAKER) (test code = 1455) 80.9 % CALCIUM, [id number] 09:06:00* Test Item Value Reference Range Interpretation Comments CALCIUM IONIZED (BEAKER) (test code = 698) 1.01 mmol/L 1.12-1.27 L PH, BLOOD (BEAKER) (test code = 1810) 7.40 BLOOD GAS, [id number] 09:05:00* Test Item Value Reference Range Interpretation Comments PH ARTERIAL (BEAKER) (test code = 383) 7.40 7.35-7.45 PCO2 ARTERIAL (BEAKER) (test code = 384) 47 mmHg 35-45 H PO2 ARTERIAL (BEAKER) (test code = 385) 88 mmHg 80-90 O2 SATURATION ARTERIAL (BEAKER) (test code = 386) 96.7 % 96.0 -97.0 HCO3 ARTERIAL (BEAKER) (test code = 388) 29 mmol/L 21-29 BASE EXCESS ARTERIAL (BEAKER) (test code = 387) 3.4 mmol/L -2.0-3 .0 H PATIENT TEMPERATURE (BEAKER) (test code = 1818) 36.9 C FIO2 (BEAKER) (test code = 1819) 100.0 % SODIUM NA-STAT [id number] 09:05:00* Test Item Value Reference Range Interpretation Comments SODIUM (BEAKER) (test code = 381) 127 meq/L 135-148 L GLUCOSE-STAT [id number] 09:05:00* Test Item Value Reference Range Interpretation Comments GLUCOSE RANDOM (BEAKER) (test code = 652) 181 mg/dL 70-110 H HGB/HCT (H&H) - STAT [id number] 09:05:00* Test Item Value Reference Range Interpretation Comments HEMOGLOBIN (BEAKER) (test code = 410) 10.4 g/dL 13.0-16.8 L HEMATOCRIT (BEAKER) (test code = 411) 31.0 % 40.0-50.0 L POTASSIUM-STAT [id number] 09:02:00* Test Item Value Reference Range Interpretation Comments POTASSIUM (BEAKER) (test code = 379) 4.6 meq/L 3.6-5.5 RAD, CHEST, 1 VIEW, NON [id number] 08:51:00Reason for exam:->ARFShould this be performed at the bedside?->YesFINAL REPORT RAD, CHEST, 1 VIEW, NON DEPT INDICATION: ARF COMPARISON: None FINDINGS: Portable frontal view of the chest. IMPRESSION: Support Lines: Endotracheal tube terminates 6 cm above the viktoria. Enteric tube side-port is not visible. Right IJ central venous catheter terminates near the cavoatrial junction.Lungs and pleura: Diffuse interstitial congestive changes are present. There are small bilateral pleural effusions. No pneumothorax.Heart and mediastinum: Prominent cardiac silhouette. Aortic contours are obscured.Additional findings: None. Signed: JR Mckeon Robert MDRcharlotte hungerford [facility] Verified Date/Time: 06/01/2018 08:51:32 Reading Location: [facility] C0[facility] Neuro Reading Room D GAS, [id number] 08:32:00* Test Item Value Reference Range Interpretation Comments PH ARTERIAL (BEAKER) (test code = 383) 7.43 7.35-7.45 PCO2 ARTERIAL (BEAKER) (test code = 384) 44 mmHg 35-45 PO2 ARTERIAL (BEAKER) (test code = 385) 76 mmHg 80-90 L O2 SATURATION ARTERIAL (BEAKER) (test code = 386) 95.6 % 96.0 -97.0 L HCO3 ARTERIAL (BEAKER) (test code = 388) 28 mmol/L 21-29 BASE EXCESS ARTERIAL (BEAKER) (test code = 387) 3.4 mmol/L -2.0-3 .0 H PATIENT TEMPERATURE (BEAKER) (test code = 1818) 36.9 C FIO2 (BEAKER) (test code = 1819) 100.0 % SODIUM NA-STAT [id number] 08:32:00* Test Item Value Reference Range Interpretation Comments SODIUM (BEAKER) (test code = 381) 127 meq/L 135-148 L GLUCOSE-STAT [id number] 08:32:00* Test Item Value Reference Range Interpretation Comments GLUCOSE RANDOM (BEAKER) (test code = 652) 171 mg/dL 70-110 H HGB/HCT (H&H) - STAT [id number] 08:32:00* Test Item Value Reference Range Interpretation Comments HEMOGLOBIN (BEAKER) (test code = 410) 10.5 g/dL 13.0-16.8 L HEMATOCRIT (BEAKER) (test code = 411) 31.0 % 40.0-50.0 L CALCIUM, [id number] 08:32:00* Test Item Value Reference Range Interpretation Comments CALCIUM IONIZED (BEAKER) (test code = 698) 1.00 mmol/L 1.12-1.27 L PH, BLOOD (BEAKER) (test code = 1810) 7.43 POTASSIUM-STAT [id number] 08:30:00* Test Item Value Reference Range Interpretation Comments POTASSIUM (BEAKER) (test code = 379) 5.4 meq/L 3.6-5.5 Sodium [id number] 03:33:00* Test Item Value Reference Range Interpretation Comments Sodium Level (test code = 2951-2) 130 136-[address] [facility] [place], TXPotassium [id number] 03:33:00* Test Item Value Reference Range Interpretation Comments Potassium Level (test code = 2823-3) 5.1 3.5-5.1 SPECIMEN SLIGHTLY ICTERICCHI [facility] Health [facility] HospitalChloride Level 2018-06-01 03:33:00* Test Item Value Reference Range Interpretation Comments Chloride Level (test code = 2075-0) 93 98-[address] [facility] [place], TXCarbon Dioxide [id number] 03:33:00* Test Item Value Reference Range Interpretation Comments Carbon Dioxide Level (test code = 2028-9) 25 22-[address] [facility] [place], TXAnion [id number] 03:33:00* Test Item Value Reference Range Interpretation Comments Anion Gap (test code = 19216-4) 17.1 8-[address] [facility] [place], TXBlood Urea [id number] 03:33:00* Test Item Value Reference Range Interpretation Comments Blood Urea Nitrogen (test code = 3094-0) 25 7-[address] [facility] [place], TXCreatinine 2018-06-01 03:33:00* Test Item Value Reference Range Interpretation Comments Creatinine (test code = 2160-0) 1.47 0.72-1.[address] [facility] [place], TXBUN/Creatinine [id number] 03:33:00* Test Item Value Reference Range Interpretation Comments BUN/Creatinine Ratio (test code = 3097-3) 17 6-[address] [facility] [place], TXEstimat Glomerular Filtration Rate 2018-06-01 03:33:00* Test Item Value Reference Range Interpretation Comments Estimat Glomerular Filtration Rate (test code = 228406132) 53 >60 L Ranges were taken from the National Kidney Disease Education Program and the [facility] literature.Reference ranges:60 or greater: Zhypha56-15 ( for 3 consecutive months): Chronic kidney disease 15 or less: Kidney failureCH[facility] [place], TXGlucose [id number] 03:33:00* Test Item Value Reference Range Interpretation Comments Glucose Level (test code = SPT6407) 160 74-[address] [facility] [place], TXCalcium [id number] 03:33:00* Test Item Value Reference Range Interpretation Comments Calcium Level (test code = 88066-1) 8.1 8.4-10.[address] [facility] [place], TXMagnesium [id number] 03:33:00* Test Item Value Reference Range Interpretation Comments Magnesium Level (test code = 41866-0) 2.3 1.3-2.[address] [facility] [place], TXMagnesium [id number] 03:33:00* Test Item Value Reference Range Interpretation Comments Magnesium Level (test code = 26629-1) 2.3 1.3-2.[address] [facility] [place], TXWhite Blood [id number] 03:21:00* Test Item Value Reference Range Interpretation Comments White Blood Count (test code = 6690-2) 20.59 4.8-10.[address] [facility] [place], TXRed Blood [id number] 03:21:00* Test Item Value Reference Range Interpretation Comments Red Blood Count (test code = 789-8) 2.65 4.3-5.[address] [facility] [place], TXHemoglobin2019-04-06 03:21:00* Test Item Value Reference Range Interpretation Comments Hemoglobin (test code = 76788-2) 9.6 14.0-18.[address] [facility] [place], TXHematocrit2019-04-06 03:21:00* Test Item Value Reference Range Interpretation Comments Hematocrit (test code = 4544-3) 29.1 38.2-49.[address] [facility] [place], TXMean Corpuscular [id number] 03:21:00* Test Item Value Reference Range Interpretation Comments Mean Corpuscular Volume (test code = 787-2) 109.8 81-[address] [facility] [place], TXMean Corpuscular [id number] 03:21:00* Test Item Value Reference Range Interpretation Comments Mean Corpuscular Hemoglobin (test code = 785-6) 36.2 28-[address] [facility] [place], TXMean Corpuscular Hemoglobin Concent 2018-06-01 03:21:00* Test Item Value Reference Range Interpretation Comments Mean Corpuscular Hemoglobin Concent (test code = 786-4) 33.0 31-[address] [facility] [place], TXRed Cell Distribution [id number] 03:21:00* Test Item Value Reference Range Interpretation Comments Red Cell Distribution Width (test code = 43490-2) 13.3 11.7 -14.[address] [facility] [place], TXPlatelet [id number] 03:21:00* Test Item Value Reference Range Interpretation Comments Platelet Count (test code = 777-3) 321 140-[address] [facility] [place], TXNeutrophils (%) (Auto)2018-06-01 03:21:00 * Test Item Value Reference Range Interpretation Comments Neutrophils (%) (Auto) (test code = 46168-9) 91.1 38.7-80.[address] [facility] [facility] [facility] [place] [place]Lymphocytes (%) (Auto)2018-06-01 03:21:00 * Test Item Value Reference Range Interpretation Comments Lymphocytes (%) (Auto) (test code = 736-9) 3.4 18.0-39.[address] [facility] [place], [place]Monocytes (%) (Auto)2018-06-01 03:21:00* Test Item Value Reference Range Interpretation Comments Monocytes (%) (Auto) (test code = 5905-5) 2.9 4.4-11.[address] [facility] [place], TXEosinophils (%) (Auto)2018-06-01 03:21:00 * Test Item Value Reference Range Interpretation Comments Eosinophils (%) (Auto) (test code = 713-8) 0.0 0.0-6.[address] [facility] [place], [place]Basophils (%) (Auto)2018-06-01 03:21:00* Test Item Value Reference Range Interpretation Comments Basophils (%) (Auto) (test code = 706-2) 0.2 0.0-1.[address] [facility] [place], TXIM GRANULOCYTES %2018-06-01 03:21:00* Test Item Value Reference Range Interpretation Comments IM GRANULOCYTES % (test code = IM GRANULOCYTES %) 2.4 0.0- 1.[address] [facility] [place], TXNeutrophils # (Auto)2018-06-01 03:21:00* Test Item Value Reference Range Interpretation Comments Neutrophils # (Auto) (test code = 751-8) 18.8 2.1-6.[address] [facility] [place], TXLymphocytes # (Auto)2018-06-01 03:21:00* Test Item Value Reference Range Interpretation Comments Lymphocytes # (Auto) (test code = 18712-4) 0.7 1.0-3.[address] [facility] [place], TXMonocytes # (Auto)2018-06-01 03:21:00* Test Item Value Reference Range Interpretation Comments Monocytes # (Auto) (test code = 742-7) 0.6 0.2-0.[address] [facility] [place], TXEosinophils # (Auto)2018-06-01 03:21:00* Test Item Value Reference Range Interpretation Comments Eosinophils # (Auto) (test code = 711-2) 0.0 0.0-0.[address] [facility] [place], TXBasophils # (Auto)2018-06-01 03:21:00* Test Item Value Reference Range Interpretation Comments Basophils # (Auto) (test code = 704-7) 0.1 0.0-0.[address] [facility] [place], TXAbsolute Immature Granulocyte (auto 2018-06-01 03:21:00* Test Item Value Reference Range Interpretation Comments Absolute Immature Granulocyte (auto (doug t code = Absolute Immature Granulocyte (auto) 0.49 0-0.[address] [facility] [place], TXArterial Blood [id number] 00:17:00* Test Item Value Reference Range Interpretation Comments Arterial Blood pH (test code = 2744-1) 7.34 7.31-7.[address] [facility] [place], TXArterial Blood Partial Pressure CO2 2018-06-01 00:17:00* Test Item Value Reference Range Interpretation Comments Arterial Blood Partial Pressure CO2 (test code = 2018-8) 49 41-[address] [facility] [place], [place]Arterial Blood Partial Pressure O2 2018-06-01 00:17:00* Test Item Value Reference Range Interpretation Comments Arterial Blood Partial Pressure O2 (test code = 2018-8) 77 80-[address] [facility] [place], TXArterial Blood [id number] 00:17:00* Test Item Value Reference Range Interpretation Comments Arterial Blood HCO3 (test code = 1960-4) 27 23-[address] [facility] [place], TXArterial Blood Base [id number] 00:17:00* Test Item Value Reference Range Interpretation Comments Arterial Blood Base Excess (test code = 1925-7) 1.0 -2-[address] [facility] [place], TXArterial Blood Oxygen Saturation 2018-06-01 00:17:00* Test Item Value Reference Range Interpretation Comments Arterial Blood Oxygen Saturation (test code = 2708-6) 94.0 95-[address] [facility] [place], TXFiO22019-04-06 00:17:00* Test Item Value Reference Range Interpretation Comments FiO2 (test code = FiO2) 85 PT. ON PRVC 16, 440 +[address] [place], TXArterial Blood [id number] 00:17:00* Test Item Value Reference Range Interpretation Comments Arterial Blood pH (test code = 2744-1) 7.34 7.31-7.[address] [facility] [place], TXArterial Blood Partial Pressure CO2 2018-06-01 00:17:00* Test Item Value Reference Range Interpretation Comments Arterial Blood Partial Pressure CO2 (test code = 2018-09) 49 41-[address] [facility] [place], TXArterial Blood Partial Pressure O2 2018-06-01 00:17:00* Test Item Value Reference Range Interpretation Comments Arterial Blood Partial Pressure O2 (test code = 2018-09) 77 80-[address] [facility] [place], TXArterial Blood [id number] 00:17:00* Test Item Value Reference Range Interpretation Comments Arterial Blood HCO3 (test code = 1960-4) 27 23-[address] [facility] [place], TXArterial Blood Base [id number] 00:17:00* Test Item Value Reference Range Interpretation Comments Arterial Blood Base Excess (test code = 1925-7) 1.0 -2-[address] [facility] [place], TXArterial Blood Oxygen Saturation 2018-06-01 00:17:00* Test Item Value Reference Range Interpretation Comments Arterial Blood Oxygen Saturation (test code = 2708-6) 94.0 95-[address] [facility] [place], TXFiO22019-04-06 00:17:00* Test Item Value Reference Range Interpretation Comments FiO2 (test code = FiO2) 85 PT. ON PRVC 16, 440 +[address] [place], TXCT CHEST W 2018-05-31 15:20:00 [facility] [address] [place] [address] Patient Name: INDRA GALVAN MR #: [id number] : 1980 Age/Sex: 37/M Req #: [id number] Adm Physician: KIET DUMAS MD Ordered by: DAVID HORTON Report #: [id number] Location: ICU Room/Bed: ICU [facility] Procedure: 0405-[address]/CT CHEST W Exam Date: 05/31/18 Exam Time: 1430 REPORT STATUS: Signed CT chest pulmonary embolism protocol CPT code: 36375 INDICATION: Intubated, ev aluate for pulmonary embolus; suspected infection f/u [id number] TECHNIQUE: Thin collimation axial images obtained through the level of the pulmonary arteries with additional imaging through the chest following the une ventful administration of 150 cc of low osmolar, nonionic intravenous contrast . Images reconstructed into coronal and sagittal MIPs for complete evaluation of the tortuous and overlapping pulmonary vascular structures and to reduce p atient radiation dose. RADIATION DOSE: Total DLP: 1246.96 mGy*cm Estimated effective dose: (DLP x 0.015 x size factor) mSv CTDIvol tejeda s been reviewed. It is below the limits set by the Radiation Protocol Committe e (RPC). Dose reduction techniques used: Automated exposure control, adjust ment of the mAs and/or kVp according to patient size, standardized low-dose pr otocol, and/or iterative reconstruction technique. COMPARISON: CT chest . FINDINGS: Images are motion degraded. There is streak artifact a cross the inferior chest from the patient's arms. Lines/tubes: Right IJ c atheter terminates in the SVC. Endotracheal tube terminates just above the aor tic arch. Enteric tube extends into the proximal stomach. Pulmonary arter y: No large or moderate sized filling defects are appreciated within the main, left, right, lobar pulmonary arteries to suggest embolism. Segmental arteries are poorly visualized due to motion artifact. Main pulmonary artery measures 3.1 cm in diameter Aorta: The thoracic aorta is not aneurysmal. No eviden ce for dissection. Lymph nodes: No enlarged axillary, supraclavicular, medi astinal, or hilar lymph nodes. Thyroid: Normal in size. Artifact or low a ttenuating nodule in the left lobe measures 8 mm. Mediastinum: The heart is top normal in size with prominent pericardial fat pads. No pericardial eff usion. There is only a mild burden of coronary artery atherosclerosis Stephanie gs: Right Lung: Numerous groundglass opacities have developed throughout t he upper lobe, middle lobe, and portions of the lower lobe. There is extensive atelectasis/infiltrate in the posterior upper lobe and posterior lower lobe. The intrapulmonary bronchi remain patent Left Lung: Numerous groundglass opacities have developed throughout the upper lobe. There is complete or near complete consolidation of the lower lobe. The intrapulmonary bronchi remain p atent Pleura: No large effusions. There is fluid tracking along the major f issures. Airways: There is filling defect in the viktoria extending into the right main bronchus. Abdomen: Severe hypoattenuation of the liver is red emonstrated consistent with steatosis. The liver is enlarged. The spleen is en larged and stable in morphology. No mass or lymphadenopathy in the visualized portion of the upper abdomen. Bones: No focal osseous lesions. Soft tissues: Unremarkable. IMPRESSION: 1. No evidence of pulmonary embolu s or aortic dissection. Mildly enlarged pulmonary artery suggestive of pulmona ry artery hypertension. 2. Widespread consolidation and atelectasis predomina ntly involving the lower lobes and the posterior aspect of the right upper lob e. 3. New multifocal airspace opacities suggestive of infection or edema. 4. Filling defect in the distal trachea and proximal right bronchus which may be the result of mucus or the sequela of aspiration. 5. Profound steatosis. Hepa tosplenomegaly. 6. Support devices as described above. Signed by: Dr. Herb Valerio MD on 05/31/2018 3:37 PM Dictated By: BENJAMIN VALERIO MD 153 Transcribed By : CATERINA on 05/31/18 1537 COPY TO: DAVID HORTON Hepatitis Be [id number] 08:40:00* Test Item Value Reference Range Interpretation Comments Hepatitis Be Antibody (test code = 85659-1) Negative Negative Performed at: - [facility] [id number] Radio Frequency Design Engineer: Esdras Lemon MD, Phone: [phone] [facility] [place], TXHepatitis Be Fpjttsey5446-00-32 08:40:00* Test Item Value Reference Range Interpretation Comments Hepatitis Be Antibody (test code = 15792-6) Negative Negative Performed at: [address] [id number] [employer] Engineer: Esdras Lemon MD, Phone: [phone] [facility] [place], TXHIV-1 RNA, Quantitative copies/[id number] 08:39:00* Test Item Value Reference Range Interpretation Comments HIV-1 RNA, Quantitative copies/mL (test code = 96285-3) <20 . HIV-1 RNA not detectedThe reportable range for this assay is 20 to 10,000,000cop ies HIV-1 RNA/mL.[facility] [place], TXHIV-1 RNA, Quantitative copies/[id number] 08:39:00* Test Item Value Reference Range Interpretation Comments HIV-1 RNA, Quantitative copies/mL (test code = 18737-8) <20 . HIV-1 RNA not detectedThe reportable range for this assay is 20 to 10,000,000cop ies HIV-1 RNA/mL.[facility] [place], TXDifferential Total Cells Ydchgrs9676-05-50 07:07:00* Test Item Value Reference Range Interpretation Comments Differential Total Cells Counted (test code = Differen tial Total Cells Counted) [address] [facility] [place], TXNeutrophils % (Manual)2018-05-31 07:07:00 * Test Item Value Reference Range Interpretation Comments Neutrophils % (Manual) (test code = 22267-7) 84 40-[address] [facility] [place], TXLymphocytes % (Manual)2018-05-31 07:07:00 * Test Item Value Reference Range Interpretation Comments Lymphocytes % (Manual) (test code = 737-7) 3 19-[address] [facility] [place], TXMonocytes % (Manual)2018-05-31 07:07:00* Test Item Value Reference Range Interpretation Comments Monocytes % (Manual) (test code = 744-3) 10 3.4-9.[address] [facility] [place], TXEosinophils % (Manual)2018-05-31 07:07:00 * Test Item Value Reference Range Interpretation Comments Eosinophils % (Manual) (test code = 714-6) 3 0-[address] [facility] [place], TXPlatelet Qixbyhma9683-31-31 07:07:00* Test Item Value Reference Range Interpretation Comments Platelet Estimate (test code = 33668-1) ADEQUATE [facility] [place], TXPlatelet Morphology [id number] 07:07:00* Test Item Value Reference Range Interpretation Comments Platelet Morphology Comment (test code = 07311-2) NORMAL [facility] [place], TXHypochromasia2019-04-05 07:07:00* Test Item Value Reference Range Interpretation Comments Hypochromasia (test code = 728-6) SLIGHT [facility] [place], TXAnisocytosis2019-04-05 07:07:00* Test Item Value Reference Range Interpretation Comments Anisocytosis (test code = 702-1) MODERATE [facility] [place], TXMacrocytosis2019-04-05 07:07:00* Test Item Value Reference Range Interpretation Comments Macrocytosis (test code = 738-5) MODERATE [facility] [place], TXRed Cell Morphology Qrrzzww1457-16-34 07:07:00* Test Item Value Reference Range Interpretation Comments Red Cell Morphology Comment (test code = 6742-1) ABNORMAL [facility] [place], TXDifferential Total Cells Counted 2018-05-31 07:07:00* Test Item Value Reference Range Interpretation Comments Differential Total Cells Counted (test code = Differgibran tial Total Cells Counted) [address] [facility] [place], TXNeutrophils % (Manual)2018-05-31 07:07:00 * Test Item Value Reference Range Interpretation Comments Neutrophils % (Manual) (test code = 86102-3) 84 40-[address] [facility] [place], TXLymphocytes % (Manual)2018-05-31 07:07:00 * Test Item Value Reference Range Interpretation Comments Lymphocytes % (Manual) (test code = 737-7) 3 19-[address] [facility] [place], TXMonocytes % (Manual)2018-05-31 07:07:00* Test Item Value Reference Range Interpretation Comments Monocytes % (Manual) (test code = 744-3) 10 3.4-9.[address] [facility] [place], TXEosinophils % (Manual)2018-05-31 07:07:00 * Test Item Value Reference Range Interpretation Comments Eosinophils % (Manual) (test code = 714-6) 3 0-[address] [facility] [place], TXPlatelet Wtpbauty6593-30-22 07:07:00* Test Item Value Reference Range Interpretation Comments Platelet Estimate (test code = 24769-5) ADEQUATE [facility] [place], TXPlatelet Morphology Ybmxcjz0249-57-24 07:07:00* Test Item Value Reference Range Interpretation Comments Platelet Morphology Comment (test code = 37044-7) NORMAL [facility] [place], TXHypochromasia2019-04-05 07:07:00* Test Item Value Reference Range Interpretation Comments Hypochromasia (test code = 728-6) SLIGHT [facility] [place], TXAnisocytosis2019-04-05 07:07:00* Test Item Value Reference Range Interpretation Comments Anisocytosis (test code = 702-1) MODERATE [facility] [place], TXMacrocytosis2019-04-05 07:07:00* Test Item Value Reference Range Interpretation Comments Macrocytosis (test code = 738-5) MODERATE [facility] [place], TXRed Cell Morphology Wjrypju8347-84-38 07:07:00* Test Item Value Reference Range Interpretation Comments Red Cell Morphology Comment (test code = 6742-1) ABNORMAL [facility] [place], TXTotal Cbqjyntuw9844-95-67 06:43:00* Test Item Value Reference Range Interpretation Comments Total Bilirubin (test code = 1975-2) 17.5 0.2-1.[address] [facility] [place], TXAspartate Amino Transf (AST/SGOT) 2018-05-31 06:43:00* Test Item Value Reference Range Interpretation Comments Aspartate Amino Transf (AST/SGOT) (test code = Aspartate Amino Transf (AST/SGOT)) 97 5-[address] [facility] [place], TXAlanine Aminotransferase (ALT/SGPT) 2018-05-31 06:43:00* Test Item Value Reference Range Interpretation Comments Alanine Aminotransferase (ALT/SGPT) (test code = 1742-6) 28 0-[address] [facility] [place], TXTotal Vcmunzt0593-34-22 06:43:00* Test Item Value Reference Range Interpretation Comments Total Protein (test code = 2885-2) 6.1 6.5-8.[address] [facility] [place], TXAlbumin2019-04-05 06:43:00* Test Item Value Reference Range Interpretation Comments Albumin (test code = 1751-7) 1.7 3.5-5.[address] [facility] [place], TXGlobulin2019-04-05 06:43:00* Test Item Value Reference Range Interpretation Comments Globulin (test code = 63581-5) 4.4 2.3-3.[address] [facility] [place], TXAlbumin/Globulin Gqkjv5398-58-30 06:43:00 * Test Item Value Reference Range Interpretation Comments Albumin/Globulin Ratio (test code = 1759-0) 0.4 0.8-2.[address] [facility] [place], TXAlkaline Sqvnqtxwkud0578-55-41 06:43:00* Test Item Value Reference Range Interpretation Comments Alkaline Phosphatase (test code = 6768-6) 149 40-[address] [facility] [place], TXCHEST SINGLE (PORTABLE)2018-05-31 05:31:00 [facility] [address] [place] [address] Patient Name: INDRA GALVAN MR #: [id number] : 1980 Age/Sex: 37/M Req #: [id number] Adm Physician: KIET DUMAS MD Ordered by: MANDEEP MARIE MD Report #: [id number] Location: ICU Room/Bed: ICU [facility] Procedure: 0405-000 3 DX/CHEST SINGLE (PORTABLE) Exam Date: 05/31/18 Anjana escalera Time: 0455 REPORT STATUS: Signed Examination: Single AP view of the chest. COMPARISON: 05/30/2018 GELA CATION: Pneumonia DISCUSSION: Lines/tubes: Endotracheal tube and right IJ catheter stable. Lungs: Stable multifocal airspace consolidation s. Pulmonary venous congestion. Pleura: No pleural effusion or pneumothora x. Heart and mediastinum: Heart size enlarged Bones and soft tissues: No acute bony abnormalities. IMPRESSION: Stable pulmonary veno us congestion and multifocal airspace consolidations. Signed by: Dr. Omero Flores M.D. on 05/31/2018 5:32 AM Dictated By: OMERO FLORES MD Elec tronically Signed By: OMERO FLORES MD on 05/31/18531 Transcribed By: DIONY ROBERTS on 05/31/18531 COPY TO: MANDEEP MARIE MD Urine Himdqpuuue0087-63-53 01:57:00* Test Item Value Reference Range Interpretation Comments Urine Osmolality (test code = 2695-5) 353 . 24 hr : 300 - 900 Random: 50 - 1400 After 12hr fluid restriction: >850Performed at: HD - [facility] [address] [id number] Director: Alli Georges MD, Phone: [phone] [facility] [place], TXUrine Osmolality 2018-05-31 01:57:00* Test Item Value Reference Range Interpretation Comments Urine Osmolality (test code = 2695-5) 353 . 24 hr : 300 - 900 Random: 50 - 1400 After 12hr fluid restriction: >850Performed at: HD - [facility] [address] [id number] Director: Alli Georges MD, Phone: [phone] [facility] [place], TXIR [id number] 17:22:00 [place] [address] Patient Name: INDRA GALVAN MR #: [id number] : 1980 Age/Sex: 37/M Req #: [id number] Adm Physician: KIET DUMAS MD Ordered by: MANDEEP MARIE MD Report #: [id number] Location: ICU Room/Bed: ICU 190-1 Procedure: 0404-004 8 DX/IR CONSULT Exam Date: Exam Time: REPORT STATUS: Signed Exam: Ultrasound guide d right internal jugular vein central line placement dated 05/30/2018. Hist ory: Patient with respiratory distress in need of IV access. Comparison: No ne available Findings: Procedure was performed following informed consent f rom the person authorized to consent. Preliminary ultrasound of the right neck shows the right internal jugular vein to be patent. Image was stored to the medical record. Sterile technique was utilized with full sterile danay r technique. Local anesthesia with 1% Xylocaine was accomplished. Then under c ontinuous sonographic guidance a 21 gauge needle was placed into the internal jugular vein followed by a 0.018 " skinny wire. A 5 Emirati micropuncture sheat h was then placed and through the micropuncture sheath a 0.035 " Amplatz super stiff wire placed centrally. Dilatation with a 7 Emirati Rajesh dilator was a ccomplished. A 7 Emir[place] Arrow triple-lumen 20 cm long central line was then pl aced over the Amplatz wire. Each lumen was flushed with saline. Catheter se cured to the skin with 3-0 Ethilon. Post procedure chest x-ray was ordere d. Impression: Successful placement of a triple-lumen central line. Signed by: Dr. Kandi Anand DO on 05/30/2018 5:31 PM Dictated By: Randall ANAND DO 173 Tr anscribed By: CATERINA on 05/30/18 173 COPY TO: MANDEEP MARIE MD NON-TUNNELLED CVC CATH [id number] 17:22:00 [address] [place], [place] [address] Patient Name: INDRA GALVAN MR #: [id number] : 1980 Age/Sex: 37/M Req #: [id number] Adm Physician: KIET DUMAS MD Ordered by: MANDEEP MARIE MD Report #: [id number] Location: ICU Room/Bed: ICU [facility] Procedure: 0404-000 3 IR/NON-TUNNELLED CVC CATH PLACMNT Exam Date: 05/30/18 Exam Time: 1430 REPORT STATUS: Signed Exam: Ultrasound guided right internal jugular vein central line place ment dated 05/30/2018. History: Patient with respiratory distress in need o f IV access. Comparison: None available Findings: Procedure was perfor med following informed consent from the person authorized to consent. Pre liminary ultrasound of the right neck shows the right internal jugular vein to be patent. Image was stored to the medical record. Sterile technique was u tilized with full sterile barrier technique. Local anesthesia with 1% Xylocain e was accomplished. Then under continuous sonographic guidance a 21 gauge need le was placed into the internal jugular vein followed by a 0.018 " skinny wire . A 5 Emirati micropuncture sheath was then placed and through the micropunctur e sheath a 0.035 " Amplatz superstiff wire placed centrally. Dilatation with a 7 Emirati Rajesh dilator was accomplished. A 7 Emir[place] Arrow triple-lumen 20 cm long central line was then placed over the Amplatz wire. Each lumen was flushed with saline. Catheter secured to the skin with 3-0 Ethilon. Post procedure chest x-ray was ordered. Impression: Successful placement of a triple-lumen central line. Signed by: Dr. Kandi Anand DO on 05/31/19 19 5:31 PM Dictated By: KANDI ANAND DO 30 Transcribed By: CATERINA on 05/30/181730 CLAIM TECHNICIAN Y TO: MANDEEP MARIE MD US GUIDANCE FOR VASCULAR [id number] 17:22:00 [place] [address] Patient Name: INDRA GALVAN MR #: [id number] : 1980 Age/Sex: 37/M Req #: [id number] Adm Physician: KIET DUMAS MD Ordered by: MANDEEP MARIE MD Report #: [id number] Location: ICU Room/Bed: ICU [facility] Procedure: 0404-001 8 US/US GUIDANCE FOR VASCULAR ACCES Exam Date: 05/30/18 Exam Time: 1430 REPORT STATUS: Signed Exam: Ultrasound guided right internal jugular vein central line place ment dated 05/30/2018. History: Patient with respiratory distress in need o f IV access. Comparison: None available Findings: Procedure was perfor med following informed consent from the person authorized to consent. Pre liminary ultrasound of the right neck shows the right internal jugular vein to be patent. Image was stored to the medical record. Sterile technique was u tilized with full sterile barrier technique. Local anesthesia with 1% Xylocain e was accomplished. Then under continuous sonographic guidance a 21 gauge need le was placed into the internal jugular vein followed by a 0.018 " skinny wire . A 5 Emirati micropuncture sheath was then placed and through the micropunctur e sheath a 0.035 " Amplatz superstiff wire placed centrally. Dilatation with a 7 Emirati Rajesh dilator was accomplished. A 7 Emir[place] Arrow triple-lumen 20 cm long central line was then placed over the Amplatz wire. Each lumen was flushed with saline. Catheter secured to the skin with 3-0 Ethilon. Post procedure chest x-ray was ordered. Impression: Successful placement of a triple-lumen central line. Signed by: Dr. Kandi Anand DO on 05/31/19 5:31 PM Dictated By: KANDI ANAND DO 30 Transcribed By: CATERINA on 05/30/181730 CLAIM TECHNICIAN Y TO: MANDEEP MARIE MD Blood Znnugwq4406-07-82 17:10:00* Test Item Value Reference Range Interpretation Comments Blood Culture (test code = 62769003) NO GROWTH AFTER 72 HOURS [facility] XRAY LINE [id number] 15:38:00 [place] [address] Patient Name: INDRA GALVAN MR #: [id number] : 1980 Age/Sex: 37/M Req #: [id number] Adm Physician: KIET DUMAS MD Ordered by: KANDI ANAND DO Report #: [id number] Location: ICU Room/Bed: [place] [address] Procedure: [id number] DX/CHEST XRAY LINE PLACEMENT Exam Date: Exam Time: REPORT STATUS: Signed EXAM: [facility] ST XRAY LINE PLACEMENT, AP Portable DATE: 05/30/2018 Time stamp on exam: 3:22 P M INDICATION: Status post right IJ central line placement and repositioning of the endotracheal tube. COMPARISON: 05/30/2018 at 1:47 PM FINDINGS: CELINE ES/TUBES: Endotracheal tube has been pulled back with its tip at the level of the clavicles. A right IJ central line has been placed with its tip localized to the right atrium. LUNGS: Unchanged pulmonary opacities. PLEURA: No effusions or pneumothorax. HEART AND MEDIASTINUM: Heart is enlarged. BONES AND SOFT TISSUES: No acute findings. IMPRESSION: 1. Acceptable p osition of endotracheal tube and right IJ central line. 2. Unchanged pulmonary opacities and cardiac enlargement. Signed by: Dr. Kandi Anand DO on 05/30 3:41 PM Dictated By: KANDI ANAND DO 1541 Transcribed By: CATERINA on 05/30/18 1541 COPY TO: KANDI ANAND DO CHEST SINGLE (PORTABLE)2018-05-30 14:49:00 [place] [address] Patient Name: INDRA GALVAN MR #: [id number] : [birth year] Age/Sex: 37/M Req #: [id number] Adm Physician: KIET DUMAS MD Ordered by: MARITZA SANTANA MD Report #: [id number] Location: ICU Room/Bed: ICU [facility] Procedure: [id number] DX/CHEST SINGLE (PORTABLE) Exam Date: 05/30/18 Exam Time: 1350 REPORT STATUS: Signed EXAM: CHEST SINGLE (PORTABLE), AP Portable DATE: 05/30/2018 Time stamp on exam: 1:47 PM INDICATION: Intubation COMPARISON: 05/29/2018 at 7:48 AM FINDING S: LINES/TUBES: Endotracheal tube is present with its tip near the viktoria. It should be pulled back approximately 2 cm. LUNGS: Significant worsening of pulmonary opacities compatible with edema. PLEURA: No effusions or pneumo thorax. HEART AND MEDIASTINUM: Normal size and contour. BONES AND SOFT TISSUES: No acute findings. IMPRESSION: 1. Endotracheal tube as descr ibed above. 2. Significant worsening of pulmonary opacities compatible with ed josué. Signed by: Dr. Kandi Anand DO on 05/30/2018 2:51 PM Dictated B y: KANDI ANAND DO 50 Transcribed By: CATERINA on 05/30/181450 COPY TO: MARITZA SANTANA MD Urine Legionella Rlylnrr1049-57-42 12:08:00* Test Item Value Reference Range Interpretation Comments Urine Legionella Antigen (test code = 82063-7) Negative Negativ e Presumptive negative for L. pneumophila serogroup 1 antigenin urine, suggesting no recent or current infection.Legionnaires' disease cannot be ruled out since o therserogroups and species may also cause disease.Performed at: [facility] [id number] [place], [place] [id number] Director: Esdras Lemon MD, Phone: [phone] [facility] [place], TXUrine Legionella Gywtqfn9065-23-46 12:08:00* Test Item Value Reference Range Interpretation Comments Urine Legionella Antigen (test code = 00033-8) Negative Negativ e Presumptive negative for L. pneumophila serogroup 1 antigenin urine, suggesting no recent or current infection.Legionnaires' disease cannot be ruled out since o therserogroups and species may also cause disease.Performed at: [facility] [id number] [place], [place] [id number] Director: Esdras Lemon MD, Phone: [phone] [facility] [place], TXHepatitis C Zaqtxzyc1224-87-66 11:20:00* Test Item Value Reference Range Interpretation Comments Hepatitis C Antibody (test code = 72395-0) 0.1 0.0-0.9 Negative: < 0.8 Indeterminate: 0.8 - 0.9 Positive: > 0.9 The CDC recommends that a positive HCV antibody result be followed up with a HCV Nucleic Acid Amplification test (383494).Performed at: [facility] [address] [place], [place] [id number] Director: Alli Georges MD, Phone: [phone] [facility] [place], TXHepatitis C Eltalbhw4682-68-87 11:20:00* Test Item Value Reference Range Interpretation Comments Hepatitis C Antibody (test code = 93937-6) 0.1 0.0-0.9 Negative: < 0.8 Indeterminate: 0.8 - 0.9 Positive: > 0.9 The CDC recommends that a positive HCV antibody result be followed up with a HCV Nucleic Acid Amplification test (712388).Performed at: - [facility] za27[address] [place], [place] [id number] Director: Alli Georges MD, Phone: [phone] [facility] [place], TXUrine ECL2288-60-59 11:03:00* Test Item Value Reference Range Interpretation Comments Urine WBC (test code = 5821-4) 11-20 0-[address] [facility] [place], TXUrine UZR3224-14-09 11:03:00* Test Item Value Reference Range Interpretation Comments Urine RBC (test code = 49827-8) NONE 0-[address] [facility] [place], TXUrine Juohhdwq4027-39-80 11:03:00* Test Item Value Reference Range Interpretation Comments Urine Bacteria (test code = 75620-3) FEW NONE [facility] [place], TXUrine Epithelial Hqtsm3300-16-40 11:03:00 * Test Item Value Reference Range Interpretation Comments Urine Epithelial Cells (test code = 83634-1) RARE NONE [facility] [place], TXUrine Transitional Epithelial Cells 2018-05-30 11:03:00* Test Item Value Reference Range Interpretation Comments Urine Transitional Epithelial Cells (test code = 8249-5) FEW NONE [facility] [place], TXUrine Transitional Epithelial Cells 2018-05-30 11:03:00* Test Item Value Reference Range Interpretation Comments Urine Transitional Epithelial Cells (test code = 8249-5) FEW NONE [facility] [place], TXUrine Xjoqd9831-41-01 10:31:00* Test Item Value Reference Range Interpretation Comments Urine Color (test code = 5778-6) RED YELLOW H [facility] [place], TXUrine Fpcfbmf9232-31-22 10:31:00* Test Item Value Reference Range Interpretation Comments Urine Clarity (test code = 14046-5) SL CLOUDY CLEAR H [facility] Specific Jgahmok1466-68-78 10:31:00 * Test Item Value Reference Range Interpretation Comments Urine Specific [place] (test code = 5811-5) 1.020 1.010-1.[address] [facility] [place], TXUrine eH6950-37-24 10:31:00* Test Item Value Reference Range Interpretation Comments Urine pH (test code = 53498-7) 6 5-7 [facility] Leukocyte Ipvelrhk8232-23-35 10:31:00* Test Item Value Reference Range Interpretation Comments Urine Leukocyte Esterase (test code = 5799-2) NEGATIVE NEGATIVE [facility] Divvfas1843-16-50 10:31:00* Test Item Value Reference Range Interpretation Comments Urine Nitrite (test code = 62769-6) POSITIVE NEGATIVE H [facility] Leboivo8567-57-22 10:31:00* Test Item Value Reference Range Interpretation Comments Urine Protein (test code = 5804-0) TRACE NEGATIVE H [facility] Glucose (UA)2018-05-30 10:31:00* Test Item Value Reference Range Interpretation Comments Urine Glucose (UA) (test code = 2349-9) NEGATIVE NEGATIVE [facility] Jkatxit2661-80-02 10:31:00* Test Item Value Reference Range Interpretation Comments Urine Ketones (test code = 93006-9) NEGATIVE NEGATIVE [facility] Fqzksfbhgiwz9262-22-43 10:31:00* Test Item Value Reference Range Interpretation Comments Urine Urobilinogen (test code = 88286-3) 1 0.2-1 [facility] Fgdhxbbjx3751-72-35 10:31:00* Test Item Value Reference Range Interpretation Comments Urine Bilirubin (test code = 1978-6) 3+ NEGATIVE H Confirmatory test currently unavailable. False positive results may occur.[facility] Aopfl6010-35-08 10:31:00* Test Item Value Reference Range Interpretation Comments Urine Blood (test code = 27175-8) NEGATIVE NEGATIVE [facility] [place], TXFolate2019-04-03 08:07:00* Test Item Value Reference Range Interpretation Comments Folate (test code = 2284-8) 30.1 7.0-15.[address] [facility] [place], TXFolate2019-04-03 08:07:00* Test Item Value Reference Range Interpretation Comments Folate (test code = 2284-8) 30.1 7.0-15.[address] [facility] [place], TXCHEST SINGLE (PORTABLE)2018-05-29 07:58:00 [facility] [address] [place] [address] Patient Name: INDRA GALVAN MR #: [id number] : 1980 Age/Sex: 37/M Req #: [id number] Adm Physician: KIET DUMAS MD Ordered by: KIRT SCHULTZ MD Report #: [id number] Location: MED/SURG3 Room/Bed: [facility] Procedure: [id number] DX /CHEST SINGLE (PORTABLE) Exam Date: 05/29/18 Exam Ti me: 0740 REPORT STATUS: Signed E XAMINATION: CHEST SINGLE (PORTABLE) INDICATION: Shortness of breath. COMPARISON: CT chest 05/28/2018 and chest radiograph 05/28/2018. FIN DINGS: TUBES and LINES: None. LUNGS: Low lung volumes with mild perihila r and interstitial opacities. Increasing patchy opacities in the lower lungs. PLEURA: No pleural effusion or pneumothorax. HEART AND MEDIASTINUM: The cardiomediastinal silhouette is unremarkable. BONES AND SOFT TISSU ES: No acute osseous abnormality. UPPER ABDOMEN: No free air under the di aphragm. IMPRESSION: Low lung volumes, cannot exclude mild pulmonary interstitial edema. Increasing patchy opacities in the lower lungs may re present atelectasis or pneumonia in the appropriate clinical setting. Sig lara by: Dr. Sonia Mora MD on 05/29/2018 8:01 AM Dictated By: SONIA MORA MD 0 Transcribed By: DIONY ROBERTS on 05/29/18800 COPY TO: KIRT SCHULTZ MD Vitamin B12 Level 2018-05-29 07:19:00* Test Item Value Reference Range Interpretation Comments Vitamin B12 Level (test code = 16311-8) 1700 213-[address] [facility] [place], TXVitamin B12 Whpnn8764-10-51 07:19:00* Test Item Value Reference Range Interpretation Comments Vitamin B12 Level (test code = 66997-3) 1700 213-[address] [facility] [place], TXIroTonsil HospitalSdjzj7505-63-65 07:07:00* Test Item Value Reference Range Interpretation Comments Iron Level (test code = 2498-4) 61 65-[address] [facility] [place], TXTotal Iron Binding Hzzsgwpn1499-28-29 07:07:00* Test Item Value Reference Range Interpretation Comments Total Iron Binding Capacity (test code = 2500-7) 116 261-[address] [facility] [place], TXPercent Iron Kbrdacjiye7506-93-37 07:07:00* Test Item Value Reference Range Interpretation Comments Percent Iron Saturation (test code = 2502-3) 53 15-[address] [facility] [place], TXTransferrin2019-04-03 07:07:00* Test Item Value Reference Range Interpretation Comments Transferrin (test code = 3034-6) 83 174-[address] [facility] [place], TXIro Tpipc4440-01-90 07:07:00* Test Item Value Reference Range Interpretation Comments Iron Level (test code = 2498-4) 61 65-[address] [facility] [place], TXTosteward health care system Iron Binding Xoglporl3068-72-55 07:07:00* Test Item Value Reference Range Interpretation Comments Total Iron Binding Capacity (test code = 2500-7) 116 261-[address] [facility] [place], TXPercent Iron Seiyxgfpqq9246-62-96 07:07:00* Test Item Value Reference Range Interpretation Comments Percent Iron Saturation (test code = 2502-3) 53 15-[address] [facility] [place], TXTransferrin2019-04-03 07:07:00* Test Item Value Reference Range Interpretation Comments Transferrin (test code = 3034-6) 83 174-[address] [facility] [place], TXMyelocytes %2018-05-29 07:06:00* Test Item Value Reference Range Interpretation Comments Myelocytes % (test code = 749-2) 1 0-[address] [facility] [place], TXMyelocytes %2018-05-29 07:06:00* Test Item Value Reference Range Interpretation Comments Myelocytes % (test code = 749-2) 1 0-[address] [facility] [place], TXPercent Reticulocyte Prsvi5463-58-80 06:26:00* Test Item Value Reference Range Interpretation Comments Percent Reticulocyte Count (test code = 27717-7) 6.4 0.8-[address] [facility] [place], TXPercent Reticulocyte Qjbzn1761-69-44 06:26:00* Test Item Value Reference Range Interpretation Comments Percent Reticulocyte Count (test code = 85495-9) 6.4 0.8-2 .2 H [facility] Be Izbsxzz0082-77-71 05:14:00* Test Item Value Reference Range Interpretation Comments Hepatitis Be Antigen (test code = 23511-0) Negative Negative [facility] B Core Total Oydkplyh7659-67-86 05:14:00* Test Item Value Reference Range Interpretation Comments Hepatitis B Core Total Antibody (test code = 54360-7) Negative Negative Performed at: - Lab[address] [id number] Director: Alli Georges MD, Phone: [phone] Medical Center B Surface Jqpmszg8301-41-76 05:14:00* Test Item Value Reference Range Interpretation Comments Hepatitis B Surface Antigen (test code = 5196-1) Negative Negat mumtaz [facility] Be Sicuyqw4318-29-97 05:14:00* Test Item Value Reference Range Interpretation Comments Hepatitis Be Antigen (test code = 53598-3) Negative Negative [facility] B Core Total Aljvqcwx7001-45-76 05:14:00* Test Item Value Reference Range Interpretation Comments Hepatitis B Core Total Antibody (test code = 85199-1) Negative Negative Performed at: - LabCo[address] [id number] Director: Alli Georges MD, Phone: [phone] [facility] [place], TXHepatitis B Surface Eiujlzw7995-91-46 05:14:00* Test Item Value Reference Range Interpretation Comments Hepatitis B Surface Antigen (test code = 5196-1) Negative Negat mumtaz [facility] [place], TXProthrombin Hsgz5179-57-19 00:09:00* Test Item Value Reference Range Interpretation Comments Prothrombin Time (test code = 5902-2) 15.5 11.9-14.[address] [facility] [place], TXProthromb Time International Ratio 2018-05-29 00:09:00* Test Item Value Reference Range Interpretation Comments Prothromb Time International Ratio (test code = 6301-6) 1.17 Oral Anticoagulant Therapy INR Values:1. Low Intensity Therapy 1.5 - 2.02 . Moderate Intensity Therapy 2.0 - 3.03. High Intensity Therapy(1) 2.5 - 3. 54. High Intensity Therapy(2) 3.0 - 4.05. Panic Value INR > 5.0 [facility] (1&2) Pnklybqp1875-10-94 17:13:00* Test Item Value Reference Range Interpretation Comments HIV (1&2) Antibody (test code = 12292-6) NON-REACTIVE NONREACTIVE [facility] [place], TXHI P24 Ywzfbck6361-46-37 17:13:00* Test Item Value Reference Range Interpretation Comments HIV P24 Antigen (test code = HIV P24 Antigen) NON-REACTIVE NONREACT MUMTAZ [facility] (1&2) Tjjofobf7317-49-13 17:13:00* Test Item Value Reference Range Interpretation Comments HIV (1&2) Antibody (test code = 19267-9) NON-REACTIVE NONREACTIVE [facility] [place], TXHIV P24 Xzrbrzm6775-79-36 17:13:00* Test Item Value Reference Range Interpretation Comments HIV P24 Antigen (test code = HIV P24 Antigen) NON-REACTIVE NONREACT MUMTAZ [facility] [place], TXCT CHEST VD5561-12-58 12:56:00 [facility] [address] [place] [address] Patient Name: INDRA GALVAN MR #: [id number] : 1980 Age/Sex: 37/M Req #: [id number] Adm Physician: KIET DUMAS MD Ordered by: MANDEEP MARIE MD Report #: [id number] Location: [facility]/SURG3 Room/Bed: [facility] Procedure: [id number]/CT CHEST WO Exam Date: 05/28/18 Exam Time: 1220 REPORT STATUS: Signed EXAMINATI ON: CT scan of the chest without contrast. TECHNIQUE: Spiral CT images of the chest were performed from the lung apices to the level of the adrenal glan ds. No intravenous contrast was administered per referring physician request. Coronal and sagittal reformatted images were obtained. COMPARISON: CT ab domen and pelvis from 05/27/2018, single view chest radiograph C LINICAL HISTORY:Shortness of breath x1 week, worse when lying flat DISCUSSI ON: ABSENCE OF INTRAVENOUS CONTRAST DECREASES SENSITIVITY FOR DETECTION OF F OCAL LESIONS AND VASCULAR PATHOLOGY. LINES/TUBES: None. LUNGS AND AIR WAYS: Linear and bandlike opacities in the lower lobes compatible with subseg mental atelectasis. Scattered groundglass opacities with a tree-in-bud configu ration in the right upper lobe for example on series 3 image 40 and series 3 i mage 57 and in the left upper lobe on series 3 image 53. Similar, though less extensive groundglass and reticular opacities in the lung bases. 5 mm groundgl ass nodule laterally within the left upper lobe seen on series 3 image 52. No gross mass lesion or bronchiectasis. Trachea, mainstem bronchi, and central lo bar and segmental bronchi are patent. PLEURA: No pneumothorax or pleur al effusions. HEART AND MEDIASTINUM: Visualized portions of the thyroid gland appear normal. No ectasia or aneurysmal dilatation of the thoracic aorta . Atherosclerotic calcification of the left anterior descending coronary arter y. No pericardial effusion. Pulmonary outflow tract is of normal caliber. LYMPH NODES: There is no mediastinal, hilar or axillary lymphadenopathy. ABDOMEN: Hepatic parenchyma is diffusely hypoattenuating compatible with steat osis. Visualized portions of the spleen, pancreatic tail, and left adrenal gla nd are unremarkable. BONES AND SOFT TISSUES: No acute bony abnormalities. IMPRESSION: Scattered bilateral upper lobe tree-in-bud nodules compati ble with atypical infection. Bandlike subsegmental atelectasis in the dep endent lower lobes. 5 mm groundglass nodule in the left upper lobe is likel y infectious or inflammatory. Follow-up CT scan of the chest in one year is lara ggested if the patient is at high risk of malignancy. Atherosclerotic grupo cification left anterior descending coronary artery. Hepatic steatosis. Signed by: Dr. Kirt Cooper M.D. on 05/28/2018 1:08 PM Dictated By: KAMALJIT COOPER MD [address] scribed By: CATERINA on 05/28/18 1308 COPY TO: MANDEEP MARIE MD Amylase Maynb4485-10-33 09:09:00* Test Item Value Reference Range Interpretation Comments Amylase Level (test code = 1798-8) 24 25-[address] [facility] [place], TXLipase2019-04-02 09:09:00* Test Item Value Reference Range Interpretation Comments Lipase (test code = 3040-3) 28 8-[address] [facility] [place], TXAmylase Exjgs1547-64-92 09:09:00* Test Item Value Reference Range Interpretation Comments Amylase Level (test code = 1798-8) 24 25-[address] [facility] [place], TXLipase2019-04-02 09:09:00* Test Item Value Reference Range Interpretation Comments Lipase (test code = 3040-3) 28 8-[address] [facility] [place], TXCHEST 2 ABFBU7445-39-18 06:24:00 [facility] [address] [place] [address] Patient Name: INDRA GALVAN MR #: [id number] : 1980 Age/Sex: 37/M Req #: [id number] Adm Physician: KIET DUMAS MD Ordered by: ANAYA BUSTAMANTE MD Report #: [id number] Location: MED/SURG3 Room/Bed: [facility] Procedure: [id number] [id number] DX/CHEST 2 VIEWS Exam Date: Exam Time: REPORT STATUS: Signed EXAMINATION: P A and lateral views of the chest. COMPARISON: May 27, 2018 CLINICAL H ISTORY: Shortness of breath DISCUSSION: Lines/tubes: None. Lungs: Mildly increased airspace opacities may reflect atelectasis or pneumo le. Pleura: No pleural effusion or pneumothorax. Heart and mediastin um: The cardiomediastinal silhouette is normal. Bones and soft tissues: N o acute bony abnormalities. IMPRESSION: Mildly increased scattered airspace opacities may reflect atelectasis or pneumonia. Sign ed by: Dr. Omero Flores M.D. on 05/28/2018 6:26 AM Dictated By: OMERO FLORES MD 5 Tra nscribed By: CATERINA on 05/28/18625 COPY TO: ANAYA BUSTAMANTE MD CT ABDOMEN/PELVIS [id number] 20:09:00 [facility] [address] [place] [address] Patient Name: INDRA GALVAN MR #: [id number] : 1980 Age/Sex: 37/M Req #: [id number] Adm Physician: KIET DUMAS MD Ordered by: ANAYA BUSTAMANTE MD Report #: [id number] Location: [facility] Room/Bed: [place] [address] Procedure: [id number]/CT ABDOMEN/PELVIS W Exam Date: 05/27/18 Exam Time: 1954 REPORT STATUS: Signed EXAMINATION: CT of the abdomen and pelvis with contrast. CLINICAL HISTORY:Rig ht upper quadrant abdominal pain COMPARISON: Right upper quadrant ultrasound . Abdominal CT dated 02/14/2013 TECHNIQUE: Spiral CT images of the abdomen and pelvis were performed from the lung bases to the lesser trocha nters after the intravenous administration of 150 cc of Omnipaque 300. Positiv e oral contrast was deferred. Coronal and sagittal reformatted images were obt ained. DISCUSSION: ABDOMEN/PELVIS: LOWER THORAX:Bibasilar atelect asis. HEPATOBILIARY: Liver is enlarged measuring 23.3 cm in the midclavicul ar line. Geographic hepatic hypodensity. Smooth contour without focal hepatic lesion. No intra or extrahepatic biliary ductal dilation. GALLBLADDER: La yering hyperdensity suggestive of sludge is seen in comparison right upper chuck drant abdominal ultrasound. Mild circumferential gallbladder wall thickening may be related to underdistention. SPLEEN: Moderate splenomegaly, measuring 14.9 cm in length. PANCREAS: No focal masses or ductal dilatation. A DRENALS: No adrenal nodules. KIDNEYS/URETERS: No hydronephrosis, stones, or solid mass lesions. PELVIC ORGANS/BLADDER: The bladder is normal. P ERITONEUM/RETROPERITONEUM: Small volume abdominal ascites within the subhepati c space, paracolic gutters, and peritoneum. LYMPH NODES: A prominent 1.4 cm periportal node (series 2, image 36). Otherwise, no intra-abdominal, retroper itoneal, pelvic or inguinal lymphadenopathy which meet CT size criteria. Mildl y prominent peritoneal nodes. VESSELS: The celiac trunk,superior and inferi or mesenteric and bilateral renal arteries are patent The portal, superior me senteric and splenic veins are patent. GI TRACT: No distention or wall th ickening. BONES AND SOFT TISSUE: No bony destructive lesions. Scattered d egenerative changes. No soft tissue abnormalities. IMPRESSION: Enlarged hypodense liver, splenomegaly, and small volume abdominal ascites; f indings are non-specific but the constellation is concerning for hepatic steat osis possibly with steatohepatitis. Partially collapsed gallbladder with g allbladder sludge and mild wall thickening, the latter may be related to under distention and/or a secondary process such as hypoproteinemia. Signed by: Ross Sinclair MD on 05/27/2018 8:40 PM Dictated By: ROSS SINCLAIR MD 39 Transcribed By: CATERINA on 05/27/182039 COPY TO: ANAYA BUSTAMANTE MD LZHBXAHXFOS8450-84-78 19:50:00 [place] [address] Patient Name: INDRA GALVAN MR #: [id number] : 1980 Age/Sex: 37/M Req #: [id number] Adm Physician: KIET DUMAS MD Ordered by: ANAYA BUSTAMANTE MD Report #: [id number] Location: [facility] Room/Bed: [place] [address] Procedure: [id number] US/US GALLBLADDER Exam Date: 05/27/18 Exam Time: 1912 REPORT STATUS: Signed EXAM : Right Upper Quadrant Ultrasound INDICATION: Right upper quadrant pain and jaundice COMPARISON: None TECHNIQUE: Transverse and longitudinal images o f the right upper abdomen were obtained. FINDINGS: Exam qualit y: Limited secondary to patient body habitus. Liver: Size: 23.3 cm in t he right midclavicular line, enlarged Appearance: Increased echogenicity, smoo th contour Mass: No focal masses Gallbladder: Partially collapsed. St ones/Sludge: Layering hyperechoic sludge without shadowing. Wall: 0.4 cm Ector earance: No wall thickening, pericholecystic fluid or hydrops. Sonographic M urphy's Sign: Negative Bile Ducts: Intrahepatic Ducts: No dilatation Ex trahepatic Ducts: Common bile duct measures 0.5 cm, no dilatation Pancreas: Nonvisualization given overlying bowel gas. Kidneys: Length: Right 10 cm Echogenicity: Normal Collecting System: No hydronephrosis Stone: None Cyst/Mass: None Vessels: Aorta: Nonvisualization given overlying bowel gas. Inferior Vena Cava: Nonvisualization given overlying thony l gas. Main Portal Vein: 1 cm, normal size with hepatopetal flow. Free Fl uid: No ascites or pleural effusion IMPRESSION: 1. Limited exam with nonvisualization of the pancreas, aorta, and inferior vena cava. 2. Gall bladder sludge and slightly thickened gallbladder wall; the latter may be rela heriberto to underdistention. 3. Hepatomegaly and hepatic steatosis. Sign ed by: Ross Sinclair MD on 05/27/2018 7:55 PM Dictated By: ROSS SINCLAIR MD [id number] Transcribed By: CATERINA on 05/27/181954 COPY TO: ANAYA BUSTAMANTE MD B- Type Natriuretic [id number] 17:56:00* Test Item Value Reference Range Interpretation Comments B-Type Natriuretic Peptide (test code = 30177-2) 221.6 0-[address] [facility] [place] Virus Types A,B Antigen 2018-05-27 17:30:00* Test Item Value Reference Range Interpretation Comments Influenza Virus Types A,B Antigen (test code = 58793-5) NEGATIVE NEGATIVE [facility] [place] Virus [place] A,B Antigen 2018-05-27 17:30:00* Test Item Value Reference Range Interpretation Comments Influenza Virus Types A,B Antigen (test code = 66073-7) NEGATIVE NEGATIVE [facility] [place], [place]Troponin [id number] 17:28:00* Test Item Value Reference Range Interpretation Comments Troponin I (test code = PMQ6257) 0.010 0-0.[address] [facility] [place] Acid [id number] 17:20:00* Test Item Value Reference Range Interpretation Comments Lactic Acid Level (test code = Lactic Acid Level) 26.5 4.5- 19.8 Results repeated and called to [place] at 1720 on 05/27/18 by Kalin Almanza. Read ba ck and verified.[facility] [place], [place] 2 [id number] 15:47:00 [place] [address] Patient Name: INDRA GALVAN MR #: [id number] : 1980 Age/Sex: 37/M Req #: [id number] Adm Physician: Ordered by: ANAYA BUSTAMANTE MD Report #: [id number] Location: ER Room/Bed: Procedure: [id number] DX/CHEST 2 VIEWS Exam Date: Exam Time: REPORT STATUS: Signed EXAMINATION: CHEST 2 VIEWS INDICATION: Cough, shortness of breath. COMPARISON: None FINDINGS: TUBES and LINES: None. LUNGS: Lungs are poorly infla heriberto. There are bilateral interstitial opacities. There are patchy opacities in the lower lungs. No evidence of lobar consolidation. There is bilateral bronc hial thickening. PLEURA: No pleural effusion or pneumothorax. HEART AND MEDIASTINUM: The cardiomediastinal silhouette is unremarkable. BON ES AND SOFT TISSUES: No acute osseous abnormality. UPPER ABDOMEN: No free air under the diaphragm. IMPRESSION: Low lung volumes. Patchy opacit ies at lung bases could represent atelectasis or pneumonia in the appropriate clinical setting. No evidence of lobar consolidation. Bilateral bronchial wall thickening, which may represent bronchitis in the setting of cough. Signed by: Dr. Sonia Mora MD on 05/27/2018 3:50 PM Dictated By: SONIA Jeffery MD [id number] Transcribed By: CATERINA on 05/27/18 [id number] COPY TO: ANAYA BUSTAMANTE MD
--- OUTSIDE RECORDS SUMMARY | 2019-09-26 21:27 | XMS REPORT | Clinical Summary ---
Author Author [facility] Organization [facility] Address Unknown Phone Unavailable Care Team Providers Care Staff Nurse Anesthetist Name Role Phone PCP Unavailable Allergies No [...] Dates Group BC/BS BC/BS PPO xxxxxxxxxxxx 2017-P [phone] [id number] [place] [phone] Advance Directives Date Inactivated Comments Code Status Date Activated 01/28/2018 3:20 PM Full Code 01/24/2018 10:54 PM
--- OUTSIDE RECORDS SUMMARY | 2019-09-26 21:28 | XMS REPORT | Clinical Summary ---
Author Author PATY Reflex SystemsSt. 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 Name Role Phone Keith Hammond Unavailable Pcp, [...] (HCC); Tubular adenoma 05/13/2019 Office Visit Hepatology Duy Elizabeth L 05/13/2019 Documentation Transplant Abby Osei [...] 05/04/2019 Hospital Cardiology - Encounter 05/10/2019 05/04/2019 Mairssa Troy Labs Only (LVM asking pt tor [...] disorder, mild, abuse 03/14/2019 Office Visit Hepatology Xu Pino RN 03/13/2019 Abstract Transplant Devyn Velasco [...] evaluation for end stage renal disease 02/03/2019 [facility] Radiology Encounter System, Provider Not In 02/03/2019 Outside Orders Martha Oquendo RN Fatty liver (Primary Dx); ESRD (end stage renal disease) (HCC); Acute blood loss anemia 01/24/2019 Orders Only Transplant Servando Handley RN ESRD (end stage renal disease) (HCC) (Pr imary Dx) 01/22/2019 Orders Only Transplant Jessie Emery Appointment (LVM. Called to confirm [facility] f/u appt wpt. Itinerary mailed.) 01/20/2019 [...] unspecified type; Hemorrhoids, unspecified hemorrhoid type 01/03/2019 [facility] Cardiology - Encounter 01/06/2019 01/03/2019 Travel [...] 33.9 in adult; Portal hypertension (HCC) 12/21/2018 [facility] dicine - Encounter 12/26/2018 12/21/2018 Orders Only [facility] dicine 12/21/2018 Travel Jessie Emery Appointment ([facility] for housing case manager Annika doug (pt currently admitted @ [place]) Scheduled 12/17 clinic appt @ 9:30. Itinerary mailed to pt.) 11/18/2018 Telephone Transplant Hepatolo gy Jessie Emery 11/12/2018 Documentation Transplant Hepatolo gy Nasra Cavazos 11/11/2018 Documentation Transplant Hepatolo gy Emma Silva CRNA 11/10/2018 Anesthesia Gastroenterology Event Devyn Lantigua MD COLONOSCOPY,BIOPSY 11/10/2018 [facility] Abstract Transplant Hepatolo gy Drake Garcia Jr., MD 11/07/2018 Abstract Transplant Hepatolo gy Delores Rucker MD 10/19/2018 Anesthesia Gastroenterology Event Shy Parisi MD COLONOSCOPY,BIOPSY 10/19/2018 Surgery Gastroenterology 10/17/2018 Orders Only [facility] Minal Andrews MD Neason, Chau Le, MD [...] liver failure with hepatic coma (HCC) 10/16/2018 [facility] dicine - Encounter 11/15/2018 10/16/2018 Travel [...] unspecified vessel or lesion type, unspecified whether [place] or transplanted heart (HCC) BODY FLUID CULTURE [...] ms QTC Calculatio n(Bazett) 490 ms R [place] 151 degrees T [place] -88 degrees Undetermi lara rhythm Left posterior [...] ms QTC Calculatio n(Bazett) 262 ms R [place] 153 degrees T [place] -84 degrees Sinus tachycardi a with 1st [...] ms QTC Calculatio n(Bazett) 511 ms P [place] 254 degrees R [place] 46 degrees T [place] -73 degrees Atrial flutter with variable A-V [...] ms QTC Calculatio n(Bazett) 0 ms R [place] 0 degrees T [place] 0 degrees No QRS complexes found, no [...] ms QTC Calculatio n(Bazett) 557 ms P [place] 45 degrees R [place] 33 degrees T [place] 29 degrees Normal sinus rhythm Nonspecifi c [...] Alcohol ic hepatitis with DIFFERENTIAL 9:34 AM CERTIFIED RESIDENTIAL MEDICATION AIDE ascites ESRD on hemodialysis (HCC) PROTHROMBIN TIME/INR Routine 04/07/2019 Alcoholic hepatitis with 9:34 AM CERTIFIED RESIDENTIAL MEDICATION AIDE ascites ESRD on hemodialysis (HCC) HEPATIC FUNCTION PANEL Routine 04/07/2019 Alcohol ic hepatitis with 9:34 AM CERTIFIED RESIDENTIAL MEDICATION AIDE ascites ESRD on hemodialysis (HCC) CBC W/PLT COUNT & AUTO Routine 04/07/2019 Alcohol ic hepatitis with DIFFERENTIAL 9:34 AM CERTIFIED RESIDENTIAL MEDICATION AIDE ascites ESRD on hemodialysis (HCC) BASIC METABOLIC PANEL (7) Routine 04/07/2019 Alco holic hepatitis with 9:34 AM CERTIFIED RESIDENTIAL MEDICATION AIDE ascites ESRD on hemodialysis (HCC) CBC W/PLT COUNT & AUTO Routine 03/14/2019 Alcohol ic cirrhosis of DIFFERENTIAL 10:32 AM CERTIFIED RESIDENTIAL MEDICATION AIDE liver without ascit es (HCC) PROTHROMBIN TIME/INR Routine 03/14/2019 Alcoholic cirrhosis of 10:32 AM CERTIFIED RESIDENTIAL MEDICATION AIDE liver without ascites (HCC) CBC W/PLT COUNT & AUTO Routine 03/14/2019 Alcohol ic cirrhosis of DIFFERENTIAL 10:32 AM CERTIFIED RESIDENTIAL MEDICATION AIDE liver without ascit es (HCC) HEPATIC FUNCTION PANEL Routine 03/14/2019 Alcohol ic cirrhosis of 10:32 AM CERTIFIED RESIDENTIAL MEDICATION AIDE liver without ascites (HCC) BASIC METABOLIC PANEL (7) Routine 03/14/2019 Alco holic cirrhosis of 10:32 AM CERTIFIED RESIDENTIAL MEDICATION AIDE liver without ascites (HCC) CBC W/PLT COUNT & AUTO Routine 03/04/2019 Iron de ficiency anemia, DIFFERENTIAL 10:00 AM CERTIFIED RESIDENTIAL MEDICATION AIDE unspecified iron deficiency anemia type COMPREHENSIVE METABOLIC Routine 03/04/2019 Alcoho lic cirrhosis of PANEL 10:00 AM CERTIFIED RESIDENTIAL MEDICATION AIDE liver with ascites (HCC) CBC W/PLT COUNT & AUTO Routine 03/04/2019 Iron de ficiency anemia, DIFFERENTIAL 10:00 AM CERTIFIED RESIDENTIAL MEDICATION AIDE unspecified iron deficiency anemia type BILIRUBIN, DIRECT Routine 03/04/2019 Alcoholic ci rrhosis of 10:00 AM CERTIFIED RESIDENTIAL MEDICATION AIDE liver with ascites (HCC) PROTHROMBIN TIME/INR Routine 03/04/2019 Alcoholic cirrhosis of 9:55 AM CERTIFIED RESIDENTIAL MEDICATION AIDE liver with ascites (HCC) COMPREHENSIVE METABOLIC Routine 02/03/2019 Fatty liver PANEL 10:13 AM CERTIFIED RESIDENTIAL MEDICATION AIDE BILIRUBIN, DIRECT Routine 02/03/2019 Fatty liver 10:13 AM CERTIFIED RESIDENTIAL MEDICATION AIDE CBC W/PLT COUNT & AUTO Routine 02/03/2019 ESRD (e nd stage renal DIFFERENTIAL 10:12 AM CERTIFIED RESIDENTIAL MEDICATION AIDE disease) (HCC) Acute blood loss anemia PROTHROMBIN TIME/INR Routine 02/03/2019 Fatty maru er 10:12 AM CERTIFIED RESIDENTIAL MEDICATION AIDE CBC W/PLT COUNT & AUTO Routine 02/03/2019 ESRD (e nd stage renal DIFFERENTIAL 10:12 AM CERTIFIED RESIDENTIAL MEDICATION AIDE disease) (HCC) Acute blood loss anemia US PELVIS WITH DOPPLER Routine 02/03/2019 ESRD (e nd stage renal 9:35 AM CERTIFIED RESIDENTIAL MEDICATION AIDE disease) (HCC) Pre-transplant evaluation for end stage renal disease RHYTHM STRIP - SCAN 01/21/2019 11:42 AM CERTIFIED RESIDENTIAL MEDICATION AIDE RHYTHM STRIP - SCAN 01/20/2019 4:02 PM CERTIFIED RESIDENTIAL MEDICATION AIDE RHYTHM STRIP - SCAN 01/20/2019 4:02 PM CERTIFIED RESIDENTIAL MEDICATION AIDE TRANSFUSION SERVICE 01/19/2019 REPORT - SCAN 6:00 PM CERTIFIED RESIDENTIAL MEDICATION AIDE PREPARE LEUKO-REDUCED RBC Routine 01/18/2019 11:55 PM CERTIFIED RESIDENTIAL MEDICATION AIDE TRANSFUSION SERVICE 01/18/2019 REPORT - SCAN 6:03 PM CERTIFIED RESIDENTIAL MEDICATION AIDE VITAMIN B12 AND FOLATE Routine 01/18/2019 5:47 PM CERTIFIED RESIDENTIAL MEDICATION AIDE HAPTOGLOBIN Routine 01/18/2019 5:47 PM CERTIFIED RESIDENTIAL MEDICATION AIDE LACTATE DEHYDROGENASE Routine 01/18/2019 (LDH) 5:47 PM CERTIFIED RESIDENTIAL MEDICATION AIDE IRON, TIBC, % SAT. Routine 01/18/2019 (WITHOUT FERRITIN) 5:47 PM CERTIFIED RESIDENTIAL MEDICATION AIDE FERRITIN Routine 01/18/2019 5:47 PM CERTIFIED RESIDENTIAL MEDICATION AIDE ULTRAFILTRATION HD CRRT Routine 01/18/2019 3:13 PM CERTIFIED RESIDENTIAL MEDICATION AIDE HEMOGLOBIN AND HEMATOCRIT STAT 01/18/2019 11:17 AM CERTIFIED RESIDENTIAL MEDICATION AIDE CBC (HEMOGRAM ONLY) Routine 01/18/2019 2:51 AM CERTIFIED RESIDENTIAL MEDICATION AIDE TRANSFUSE LEUKO-REDUCED Routine 01/17/2019 RED BLOOD CELLS 11:33 PM CERTIFIED RESIDENTIAL MEDICATION AIDE TRANSFUSE LEUKO-REDUCED Routine 01/17/2019 RED BLOOD CELLS 10:39 PM CERTIFIED RESIDENTIAL MEDICATION AIDE HEMODIALYSIS INPATIENT Routine 01/17/2019 9:29 PM CERTIFIED RESIDENTIAL MEDICATION AIDE TYPE AND SCREEN, Routine 01/17/2019 AUTOMATED 3:35 PM CERTIFIED RESIDENTIAL MEDICATION AIDE CBC W/PLT COUNT & AUTO Routine 01/16/2019 Alcohol ic cirrhosis of DIFFERENTIAL 3:56 PM CERTIFIED RESIDENTIAL MEDICATION AIDE liver without ascit es (HCC) AB SPECIFICITY CLASS I Routine 01/16/2019 ESRD (e nd stage renal 3:56 PM CERTIFIED RESIDENTIAL MEDICATION AIDE disease) (HCC) Pre-transplant evaluation for end stage renal disease ALPHA FETOPROTEIN (AFP), Routine 01/16/2019 Alcoh olic cirrhosis of TUMOR MARKER 3:56 PM CERTIFIED RESIDENTIAL MEDICATION AIDE liver without ascit es (HCC) PROTHROMBIN TIME/INR Routine 01/16/2019 Alcoholic cirrhosis of 3:56 PM CERTIFIED RESIDENTIAL MEDICATION AIDE liver without ascites (HCC) CBC W/PLT COUNT & AUTO Routine 01/16/2019 Alcohol ic cirrhosis of DIFFERENTIAL 3:56 PM CERTIFIED RESIDENTIAL MEDICATION AIDE liver without ascit es (HCC) HEPATIC FUNCTION PANEL Routine 01/16/2019 Alcohol ic cirrhosis of 3:56 PM CERTIFIED RESIDENTIAL MEDICATION AIDE liver without ascites (HCC) BASIC METABOLIC PANEL (7) Routine 01/16/2019 Alco holic cirrhosis of 3:56 PM CERTIFIED RESIDENTIAL MEDICATION AIDE liver without ascites (HCC) FLOW PRA CLASS II WITH Routine 01/16/2019 ESRD (e nd stage renal REFLEX TO ANTIBODY 3:56 PM CERTIFIED RESIDENTIAL MEDICATION AIDE disease) (HCC) SPECIFICITY Pre-transplant evaluation for end stage renal disease FLOW PRA CLASS I WITH Routine 01/16/2019 ESRD (en d stage renal REFLEX TO ANTIBODY 3:56 PM CERTIFIED RESIDENTIAL MEDICATION AIDE disease) (HCC) SPECIFICITY Pre-transplant evaluation for end stage renal disease HLA TYPING CII Routine 01/16/2019 ESRD (end stage renal 3:56 PM CERTIFIED RESIDENTIAL MEDICATION AIDE disease) (HCC) Pre-transplant evaluation for end stage renal disease HLA TYPING CI Routine 01/16/2019 ESRD (end stage renal 3:56 PM CERTIFIED RESIDENTIAL MEDICATION AIDE disease) (HCC) Pre-transplant evaluation for end stage renal disease RHYTHM STRIP - SCAN 01/08/2019 9:10 AM CERTIFIED RESIDENTIAL MEDICATION AIDE TRANSFUSION SERVICE 01/06/2019 REPORT - SCAN 5:50 PM CERTIFIED RESIDENTIAL MEDICATION AIDE HEPATIC FUNCTION PANEL Routine 01/06/2019 6:01 AM CERTIFIED RESIDENTIAL MEDICATION AIDE PROTHROMBIN TIME/INR Routine 01/06/2019 6:01 AM CERTIFIED RESIDENTIAL MEDICATION AIDE MAGNESIUM Routine 01/06/2019 6:01 AM CERTIFIED RESIDENTIAL MEDICATION AIDE BASIC METABOLIC PANEL (7) Routine 01/06/2019 6:01 AM CERTIFIED RESIDENTIAL MEDICATION AIDE CBC (HEMOGRAM ONLY) Routine 01/06/2019 6:01 AM CERTIFIED RESIDENTIAL MEDICATION AIDE MISCELLANEOUS LAB ORDER Routine 01/06/2019 6:01 AM CERTIFIED RESIDENTIAL MEDICATION AIDE PREPARE LEUKO-REDUCED RBC Routine 01/05/2019 11:54 PM CERTIFIED RESIDENTIAL MEDICATION AIDE TRANSFUSION SERVICE 01/05/2019 REPORT - SCAN 5:50 PM CERTIFIED RESIDENTIAL MEDICATION AIDE PROTHROMBIN TIME/INR Routine 01/05/2019 4:30 AM CERTIFIED RESIDENTIAL MEDICATION AIDE HEPATIC FUNCTION PANEL Routine 01/05/2019 4:30 AM CERTIFIED RESIDENTIAL MEDICATION AIDE MAGNESIUM Routine 01/05/2019 4:30 AM CERTIFIED RESIDENTIAL MEDICATION AIDE BASIC METABOLIC PANEL (7) Routine 01/05/2019 4:30 AM CERTIFIED RESIDENTIAL MEDICATION AIDE CBC (HEMOGRAM ONLY) Routine 01/05/2019 4:30 AM CERTIFIED RESIDENTIAL MEDICATION AIDE PREPARE LEUKO-REDUCED RBC STAT 01/04/2019 11:54 PM CERTIFIED RESIDENTIAL MEDICATION AIDE TRANSFUSION SERVICE 01/04/2019 REPORT - SCAN 5:53 PM CERTIFIED RESIDENTIAL MEDICATION AIDE DRUG SCREEN, URINE, Routine 01/04/2019 TRANSPLANT 5:39 PM CERTIFIED RESIDENTIAL MEDICATION AIDE DRUG SCREEN, URINE, Routine 01/04/2019 COMPREHENSIVE 5:39 PM CERTIFIED RESIDENTIAL MEDICATION AIDE TRANSFUSE LEUKO-REDUCED Routine 01/04/2019 RED BLOOD CELLS 2:09 PM CERTIFIED RESIDENTIAL MEDICATION AIDE ETHANOL Routine 01/04/2019 9:42 AM CERTIFIED RESIDENTIAL MEDICATION AIDE CBC W/PLT COUNT & AUTO Routine 01/04/2019 DIFFERENTIAL 4:07 AM CERTIFIED RESIDENTIAL MEDICATION AIDE CBC W/PLT COUNT & AUTO Routine 01/04/2019 DIFFERENTIAL 4:07 AM CERTIFIED RESIDENTIAL MEDICATION AIDE HEPATIC FUNCTION PANEL Routine 01/04/2019 4:07 AM CERTIFIED RESIDENTIAL MEDICATION AIDE BASIC METABOLIC PANEL (7) Routine 01/04/2019 4:07 AM CERTIFIED RESIDENTIAL MEDICATION AIDE TRANSFUSE LEUKO-REDUCED STAT 01/04/2019 RED BLOOD CELLS 1:55 AM CERTIFIED RESIDENTIAL MEDICATION AIDE TYPE AND SCREEN, STAT 01/03/2019 AUTOMATED 9:56 PM CERTIFIED RESIDENTIAL MEDICATION AIDE CBC W/PLT COUNT & AUTO STAT 01/03/2019 DIFFERENTIAL 9:54 PM CERTIFIED RESIDENTIAL MEDICATION AIDE PT/APTT STAT 01/03/2019 9:54 PM CERTIFIED RESIDENTIAL MEDICATION AIDE HEPATIC FUNCTION PANEL STAT 01/03/2019 9:54 PM CERTIFIED RESIDENTIAL MEDICATION AIDE BASIC METABOLIC PANEL (7) STAT 01/03/2019 9:54 PM CERTIFIED RESIDENTIAL MEDICATION AIDE CBC W/PLT COUNT & AUTO STAT 01/03/2019 DIFFERENTIAL 9:54 PM CERTIFIED RESIDENTIAL MEDICATION AIDE REPORT OF PROCEDURE - 12/31/2018 ENDOSCOPY SCAN 12:52 PM CERTIFIED RESIDENTIAL MEDICATION AIDE TRANSFUSION SERVICE 12/27/2018 REPORT - SCAN 6:02 [...] ms QTC Calculatio n(Bazett) 541 ms P [place] 40 degrees R [place] 30 degrees T [place] 14 degrees Normal sinus rhythm Prolonged QT [...] included. Specimen Narrative Performed At FINAL REPORT [facility] MRI of the abdomen with and without [...] Report Verified Date/Time: 0 12:54:18 Reading Location: [address] Reading Room Procedure Note Interface, External [...] Report Verified Date/Time: 05/23/2019 12:54:18 Reading Location: [address] Ortho Consult Reading Room Performing Organization Address City/State/Zipcode Ph one Number GE RIS * CBC with platelet count + automated diff (05/23/2019 9:03 AM CDT) Only the most recent of 60 results within the time period is included. WBC 7.3 3.5 - 10.5 K/L [facility] RBC 2.33 (L) 4.63 - 6.08 M/L [facility] Hemoglobin 7.3 (L) 13.7 - 17.5 GM/DL [facility] Hematocrit 22.0 (L) 40.1 - 51.0 % [facility] MCV 94.4 (H) 79.0 - 92.[address] [facility] MCH 31.3 25.7 - 32.[address] [facility] MCHC 33.2 32.3 - 36.5 GM/DL [facility] RDW 18.6 (H) 11.6 - 14.4 % [facility] Platelets 94 (L) 150 - 450 K/CU MM [facility] MPV 8.4 (L) 9.4 - 12.[address] [facility] nRBC 0 0 - 0 /[address] [facility] % Neutros 69 % [facility] % Lymphs 18 % [facility] % Monos 9 % [facility] % Eos 3 % [facility] % Baso 1 % [facility] # Neutros 5.03 1.78 - 5.38 K/L [facility] # Lymphs 1.31 (L) 1.32 - 3.57 K/L [facility] # Monos 0.62 0.30 - 0.82 K/L [facility] # Eos 0.23 0.04 - 0.54 K/L [facility] # Baso 0.06 0.01 - 0.08 K/L [facility] Immature 0 0 - 1 % [facility] Granulocytes-Relative [facility] Specimen Blood Performing Organization Address City/State/Zipcode Ph one Number [facility] [address] [place], [place] [address] [facility] * Prothrombin time/INR (05/23/2019 9:03 AM CDT) Only the most recent of 40 results within the time period is included. Protime 16.6 (H) 11.9 - 14.2 seconds [facility] INR 1.[address] <=[address] [facility] Specimen Blood Narrative Performed At Effective 07/24/2018: PT Reference Range Change [facility] New: 11.9-14.2Previous: 11.7-14.7 [facility] MEDICAL CE NTER RECOMMENDED COUMADIN/WARFARIN INR THERA PY RANGES STANDARD DOSE: 2.0-3.0Includes: PRO PHYLAXIS for venous thrombosis, systemic embolization; TREATMENT for venous thro mbosis and/or pulmonary embolus. HIGH RISK: Target INR is 2.5-3.5 for pa tients wiht mechanical heart valves. Performing Organization Address [facility] Ph one Number [place] [phone] [facility] * Hepatic function panel (05/23/2019 9:03 AM CDT) Only the most recent of 41 results within the time period is included. Protein, Total 6.5 6.0 - 8.3 gm/dL [facility] Albumin 3.4 (L) 3.5 - 5.0 g/dL [facility] Total Bilirubin 5.4 (H) 0.2 - 1.2 mg/dL [facility] Bilirubin, Direct 2.6 (H) 0.1 - 0.5 mg/dL [facility] Alkaline Phosphatase 200 (H) 40 - 150 U/L [facility] AST 46 (H) 5 - 34 U/L [facility] ALT 12 6 - 55 U/L [facility] Specimen Blood Narrative Performed At Manager Division ID - PORSHAASHLEYG [facility] Specimen moderately [facility] Performing Organization Address [facility] Ph one Number [place] [phone] [facility] * Basic Metabolic Panel (05/23/2019 9:03 AM CDT) Only the most recent of 47 results within the time period is included. Sodium 139 136 - 145 meq/L [facility] Potassium 3.3 (L) 3.5 - 5.1 meq/L [facility] Chloride 100 98 - 107 meq/L [facility] CO2 30 (H) 22 - 29 meq/L [facility] BUN 25 (H) 7 - 21 mg/dL [facility] Creatinine 2.87 (H) 0.57 - 1.25 mg/dL [facility] Glucose 112 (H) 70 - 105 mg/dL [facility] Calcium 8.5 8.4 - 10.2 mg/dL [facility] EGFR 25Comment: ESTIMATED GFR IS mL/min/1.73 sq m [facility] NOT ACCURATE CREATININE [facility] CLEARANCE IN PREDICTING GLOMERULAR FILTRATION RATE. ESTIMATED GFR IS NOT APPLICABLE FOR DIALYSIS PATIENTS. Specimen Blood Narrative Performed At Manager Division ID - KAVONG [facility] Specimen moderately [facility] Performing Organization Address City/[facility] Ph one Number [phone] [place] [address] * RHYTHM STRIP - SCAN (05/15/2019 4:11 [...] is n ot available. Performing Organization Address City/[facility] Cent[facility] Ph one Number [facility] [address] [place] [address], [place] * Bilirubin, direct (05/14/2019 9:30 AM CDT) Only the most recent of 5 results within the time period is included. Bilirubin, Direct 2.0 (H) 0.1 - 0.5 mg/dL [facility] Specimen Blood Performing Organization Address [facility] Ph one Number [place] [phone] [place] [address] * EKG-SCANNED (05/13/2019 11:03 AM CDT) Only [...] included. Phosphorus 3.4 2.3 - 4.7 mg/dL [facility] Specimen Blood Narrative Performed At Manager Division ID - ULYSSES Jang [facility] Performing Organization Address [facility] one [place] [phone] * Magnesium (05/10/2019 5:22 AM CDT) Only the most recent of 23 results within the time period is included. Magnesium 1.9 1.6 - 2.6 mg/dL [facility] Specimen Blood Narrative Performed At Manager Division ID - ULYSSES Jang [facility] Performing Organization Address [facility] one [place] [address] [facility] * NM Myocardial Perfusion Pet/CT (Rest & Stress) (05/09/2019 2:55 PM CDT) Specimen Narrative Performed At FINAL REPORT GE RIS PROCEDURE: MYOCARDIAL PERFUSION PET HEAVENLY GING (Rest/Stress) CPT CODE: [id number] INDICATION: Assess symptoms/risk factor s of possible [...] Report Verified Date/Time: 0 16:05:35 Reading Location: [address] Reading Room Procedure Note Interface, External Ris In - 05/09/2019 4:07 PM CDT FINAL REPORT PROCEDURE: MYOCARDIAL PERFUSION PET IMAGING (Rest/Stress) CPT CODE: [id number] INDICATION: Assess symptoms/risk factors of possible CAD [...] Report Verified Date/Time: 05/09/2019 16:05:35 Reading Location: [address] Nuc Med Reading Room Performing Organization [...] 6.1Comment: Specimen slightly 6.0 - 8.3 gm/dL [facility] Albumin 2.9 (L)Comment: Specimen 3.5 - 5.0 g/dL [facility] Alkaline Phosphatase 116 40 - 150 U/L [facility] Total Bilirubin 4.1 (H)Comment: Specimen 0.2 - 1.2 mg/dL [facility] Sodium 131 (L) 136 - 145 meq/L [facility] Potassium 3.9Comment: Specimen slightly 3.5 - 5.1 meq/L [facility] Chloride 99 98 - 107 meq/L [facility] CO2 23 22 - 29 meq/L [facility] BUN 22 (H) 7 - 21 mg/dL [facility] Creatinine 4.22 (H)Comment: Specimen 0.57 - 1.25 mg/dL [facility] slightly hemolyzed [facility] Glucose 108 (H) 70 - 105 mg/dL [facility] Calcium 8.1 (L) 8.4 - 10.2 mg/dL [facility] AST 30Comment: Specimen slightly 5 - 34 U/L [facility] hemolyzed [facility] ALT 8Comment: Specimen slightly 6 - 55 U/L [facility] hemolyzed [facility] EGFR 16Comment: ESTIMATED GFR IS mL/min/1.73 sq m [facility] NOT ACCURATE CREATININE [facility] CLEARANCE IN PREDICTING GLOMERULAR FILTRATION RATE. ESTIMATED GFR IS NOT APPLICABLE FOR DIALYSIS PATIENTS. Specimen Blood Narrative Performed At Manager Division ID - ULYSSES M [facility] Specimen slightly icteric [facility] Performing Organization Address City/State/Zipcode Ph one Number [place] [phone] [facility] * TRANSFUSION SERVICE REPORT - SCAN (05/08/2019 5:52 PM CDT) Only the most recent of 20 results within the time period is included. Narrative Performed At This result has an attachment that is n ot available. * Limited 2D Echocardiogram (05/08/2019 11:40 AM CDT) Ejection Fraction [facility] ECHO HEARTLAB [facility] Specimen Narrative Performed At Transthoracic Echocardiography Report (TTE) [facility] ECH O HEARTLAB Demographics [facility] Patient Name INDRA GALVAN Date of Study 05/08/2019 YAN CORDERO [id number] Gender Male Visit Number [id number] Unknown [id number] Room Number [id number] Number Date of Birth1980 [...] (>60%) . Left AtriumLA s ize is [id number] enlarged . Right VentricleNormal r ight ventricle [...] 05/08/2019 YAN CORDERO Gender Male Visit Number [id number] Race Unknown Room Number 6213 Number Date of 1980 Referring Physician ROBBIE NEW Age 38 year(s) Him Director Renny Yepez Taxation Economist Nick Navarro Interpreting Physician MELVA Jackson Procedure [...] (>60%) . Left Atrium LA size is [id number] enlarged . Right Ventricle Normal right ventricle [...] of Yasmin.: 3.23 cm Performing Organization Address City/[facility]/Zipcode Ph one Number [facility] [place] [facility] MKCKESSON CPACS * Procalcitonin (05/08/2019 3:02 AM CDT) Only the most recent of 4 results within the time period is included. Procalcitonin 3.64 (H) <0.05 ng/mL [facility] Specimen Blood Narrative Performed At SEPSIS RISK (ng/mL) [facility] Low:0.05-0.50 [facility] Intermediate: 0.51-2.00 High: >=2.01 Performing Organization Address [facility] Ph one Number [place] [address] [facility] * Manual Differential (05/08/2019 3:02 AM CDT) Only the most recent of 17 results within the time period is included. % Neutros 74 % [facility] % Lymphs 12 % [facility] % Monos 9 % [facility] % Eos 2 % [facility] % Baso 3 % [facility] # Neutros 8.66 (H) 1.78 - 5.38 K/ul [facility] # Lymphs 1.40 1.32 - 3.57 K/ul [facility] # Monos 1.05 (H) 0.30 - 0.82 K/uL [facility] # Eos 0.23 0.04 - 0.54 K/uL [facility] # Baso 0.35 (H) 0.01 - 0.08 K/uL [facility] Total Counted 100 [facility] Platelet Morphology Normal [facility] Toxic Granulation Present [facility] Polychromasia 2+ moderate [facility] Hypochromia 1+ few [facility] Anisocytosis 1+ few [facility] Macrocytes 1+ few [facility] Poikilocytes 1+ few [facility] Lincoln Cells 1+ few [facility] Artifact Present [facility] Platelet Conc Adequate [facility] Specimen Blood Narrative Performed At Manager Division ID - Ivonne Gray [facility] User comments: [facility] Slide comments: Performing Organization Address [facility] Ph one Number [address] [facility] * Prepare Leuko-Red RBC (05/07/2019 11:54 PM CDT) Only the most recent of 12 results within the time period is included. CROSSMATCH COMPATIBLE SAFETRACE TX Unit ABO B Pos SAFETRACE TX UNIT NUMBER [id number] SAFETRACE TX Status TX_TIMEINCHART SAFETRACE TX Blood Bank Product RED BLOOD CELLS SAFETRACE TX PRODUCT CODE [id number] [facility] [place] Specimen Other Performing Organization Address [facility] one Number SAFETRACE [place] * PERIPHERAL VASCULAR [...] time period is included. Result No growth [facility] Gram Stain Result 1+ White blood cells seen [facility] Gram Stain Result No organisms seen [facility] Specimen Body Fluid Performing Organization Address City/[facility]/Zipcode Ph one Number [address] [facility] * Cytology (05/07/2019 7:20 PM CDT) Case Report Medical Cytology [facility] Report [facility] Case: [id number] Authorizing Provider:Robbie New MD Collected: 05/07/2019 1920 Ordering Location: [place] [address] CCUReceived: 05/08/19 1445 Pathologist: Josh Yang MD Specimen:Pericardial DIAGNOSIS PERICARDIAL FLUID (CYTOSPINS): [facility] - NEGATIVE FOR MALIGNANCY [facility] Signing Pathologist Direct Phone Line: [phone] CPT Code(s) 93209 [facility] CLINICAL DATA Pericardial effusion, [facility] cirrhosis [facility] SPECIMEN SOURCE PERICARDIAL FLUID [facility] GROSS DESCRIPTION 600 mls bloody fluid; 4 [facility] cytospins [facility] Collected: [id number] Received: [id number] STATEMENT OF ADEQUACY Satisfactory [facility] Gross assessment was [facility] performed at [place], Department of [facility] [address] Pathology, [address] [place] [address], Technical component was [facility] performed at [place], Department of [facility] Pathology, [address] [place] [address], Professional component [facility] was performed at [place], Department of [facility] Pathology, [address] [place] [address], Specimen Body Fluid Narrative Performed At This result has an attachment that is n ot available. Performing Organization Address [facility] Centercode Ph one Number [address] 0 [phone] [place] [address] * 2D Echo W/Doppler(CW/PW/Color) (05/07/2019 6:32 PM CDT) Ejection Fraction [facility] ECHO HEARTLAB [facility] Specimen Narrative Performed At Transthoracic Echocardiography Report (TTE) [facility] ECH O HEARTLAB Demographics [facility] Patient Name INDRA GALVAN Date of Study05/07/2019 YAN CORDERO [id number] Gender Male Visit Number [id number] Unknown [id number] Room [id number] Number Date of Birth1980 Barron sanchez Age38 [...] 05/07/2019 YAN CORDERO Gender Male Visit Number [id number] Race Unknown Room Number 6213 Number Date of 1980 Referring Robbie New MD Physician Age 38 year(s) Him Director Aneudy Jerez Interpreting Physician MELVA Jackson Fellow [...] Performing Organization Address City/State/Zipcode Ph one Number [facility] [employer] [facility] * Carotid doppler bilateral (05/06/2019 4:05 PM CDT) Ejection Fraction [facility] [employer] [facility] Specimen Impressions Performed At Right Impression [facility] [employer] HEARTInstamojo 1. The internal carotid artery is within normal limit s. [facility] 2. The external carotid artery is withi [...] At PV LAB - Carotid Duplex Study [facility] ECHO HEARTLAB Demographics [facility] Patient Name INDRA GALVAN Date of Study05/06/2019 RUSS VEE JR. [id number] Visit Number [id number] Gender Male Accession Number [id number] [facility] of [facility]1980 [facility] [id number] PhysicianAGASCAR SonographerGreghali MARINOS Interpreting Josh Meeks Procedure [...] 05/06/2019 YAN CORDERO Age 38 Visit Number [id number] Gender Male Accession Number [id number] Date of 1980 Referring Karen Carranza Room Number 8075 Physician SARAH Him Director Cb Maki S Interpreting Karen Blackwell, Physician [...] Ph one Number [facility] ECHO HEARTLAB MKCKESSON [facility] * REPORT OF PROCEDURE - ENDOSCOPY URL (05/06/2019 1:43 PM CDT) Narrative Performed At This result has an attachment that is n ot available. 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) [facility] er Taxation Economist Joanna Whitley Interpreting Pratik Rubin MD Procedure [...] 05/06/2019 YAN CORDERO Gender Male Visit Number [id number] Race Unknown Room Number 2454 Number Date of 1980 Referring Robbie New MD Physician Age 38 year(s) Him Director Aneudy Jerez Taxation Economist Joanna Whitley Interpreting Pratik Pak Physician MD [...] Performing Organization Address City/State/Zipcode Ph one Number [facility] ECHO HEARTLAB MKCKESSON CPACS * Transfuse Leuko-Red [...] in the co ntext of the presenting [facility] symptoms and the clinical findings. Elevated TnI leve ls indicate myocardial [facility] damage, but are not specific for ischem ic heart disease. Elevated TnI levels are seen in patients with other cardiac con ditions (including myocarditis and congestive heart failure), and slight T nI elevations occur in patients with other conditions, including sepsis, tay al failure, acidosis, acute neurological disease, and persistent tachyarrhythmia . Manager Division ID - BS Performing Organization Address City/State/Zipcode Ph one Number [facility] [address] [place], [place] [address] MEDICAL CENTER * ECG 12 lead (05/05/2019 8:53 PM CDT) Only the most recent of 6 results within the time period is included. Specimen Narrative Performed At Ventricular Rate 128 BPM GE MUSE Atrial Rate 89 BPM QRS Duration 94 ms Q-T Interval 336 ms QTC Calculation(Bazett) 490 ms R [place] 151 degrees T [place] -88 degrees Atrial fibrillation Left posterior fascicular [...] leads Confirmed by MD KLINE JOSEPH P ([id number]) on 05/06/2019 6:34:11 AM Procedure Note Interface, External Ris In - 05/06/2019 6:34 AM CDT Ventricular Rate 128 BPM Atrial Rate 89 BPM QRS Duration 94 ms Q-T Interval 336 ms QTC Calculation(Bazett) 490 ms R [place] 151 degrees T [place] -88 degrees Atrial fibrillation Left posterior fascicular [...] leads Confirmed by MD KLINE JOSEPH P ([id number]) on 05/06/2019 6:34:11 AM Performing Organization Address [facility] one Number GE MUSE * Hepatitis B surface antigen (05/05/2019 3:02 PM CDT) Only the most recent of 3 results within the time period is included. HBsAg Screen Nonreactive Nonreactive [facility] Specimen Blood Narrative Performed At Manager Division ID - BS [facility] Performing Organization Address [facility] one [address] [facility] * Occult blood, stool (05/05/2019 12:07 PM CDT) Occult blood Negative Negative [facility] Specimen Stool Performing Organization Address [facility] one [address] [facility] * ABORH, manual (05/05/2019 9:51 AM CDT) ABO Grouping B [facility] Rh Factor POS [facility] Specimen Blood Performing Organization Address [address] [phone] [facility] * Iron, TIBC, % sat. (without ferritin) (05/05/2019 9:51 AM CDT) Only the most recent of 2 results within the time period is included. Iron 88.0 40.0 - 160.0 ug/dL [facility] TIBC 130 (L) 250 - 450 ug/dL [facility] Iron % Saturation 68 (H) 20 - 55 % [facility] Specimen Blood Narrative Performed At Manager Division ID - PIAYA L [facility] Performing Organization Address [facility] one [address] 7[address] [phone] [address] * Reticulocyte count (05/05/2019 9:51 AM CDT) Only the most recent of 2 results within the time period is included. % Retic 2.3 (H) 0.5 - 1.8 % [facility] Specimen Blood Narrative Performed At Manager Division ID - [id number] [facility] Performing Organization Address [facility] Ph one [place] [phone] [place] [address] * Direct AHG (LUMA)/Direct Antonia (05/05/2019 9:51 AM CDT) Direct AHG-IGG NEGATIVE [facility] Direct AHG-C3B, C3D NEGATVIE [facility] Specimen Blood Performing Organization Address [facility] one [place] [phone] * Ferritin (05/05/2019 9:51 AM CDT) Only the most recent of 2 results within the time period is included. Ferritin 1,081 (H) 5 - 275 ng/mL [facility] Specimen Blood Narrative Performed At Manager Division ID - AAHAMID [facility] Performing Organization Address [facility] Ph one Number [place] [address] [address] [phone] [address] * Lactic acid, venous (05/05/2019 12:29 AM CDT) Only the most recent of 6 results within the time period is included. Lactate, Venous 2.6 (H) 0.5 - 2.2 mmol/L [facility] Specimen Blood Narrative Performed At Manager Division ID - PIAYA L [facility] slightly icteric [facility] Performing Organization Address [facility] Ph one Number [place] [address] [phone] [address] * Type and screen, automated ([facility] and CECs only) (05/04/2019 8:42 PM CDT) Only the most recent of 8 results within the time period is included. ABO/RH AUTOMATED (BEAKER) B POSITIVE [facility] Ab Scrn NEGATIVE [facility] Specimen Blood Performing Organization Address City/State/Zipcode Ph one Number [facility] [address] [place] [address] [facility] * Urinalysis w/Microscopic + Reflex to Culture (05/04/2019 7:53 PM CDT) Only the most recent of 6 results within the time period is included. Color, UA Yellow [facility] Clarity, UA Hazy [facility] Specific [place], UA 1.011 1.001 - 1.035 [facility] pH, UA 5.5 5.0 - 8.0 [facility] Protein, UA 100 mg/dL (A) Negative [facility] Glucose, UA 100 mg/dL (A) Negative [facility] Ketones, UA Negative Negative [facility] Bilirubin, UA Negative Negative [facility] Blood, UA Negative Negative [facility] Nitrite, UA Negative Negative [facility] Leukocytes, UA Negative Negative [facility] Urobilinogen, UA 0.2 0.2 - 1.0 mg/dL [facility] RBC, UA 7 /HPF [facility] WBC, UA 12 /HPF [facility] Bacteria, UA Occasional [facility] Mucus Rare [facility] Squam Epithel, UA 18 /HPF [facility] Hyaline Casts, UA 78 /LPF [facility] Casts 70 /LPF [facility] Crystals, Urine Occasional [facility] Yeast Moderate [facility] Specimen Source [facility] Specimen Urine Narrative Performed At Manager Division ID - [auto] [facility] Manager Division ID - tech [facility] Performing Organization Address City/[facility]/[place] Ph one Number [address] [facility] * Strep pneumoniae antigen (05/04/2019 7:53 PM CDT) Strep pneumoniae Antigen Presumptive negative for Presumptive negative for [facility] pneumococcal pneumonia - see pneumococcal pneumonia - [facility] comment see comment, Presumptive negative for pneumococcal meningitis - see comment Specimen Urine Narrative Performed At Presumptive negative for pneumococcal p neumonia, suggesting no current or recent [facility] pneumococcal infection. Infection due t o S. pneumoniae cannot be ruled out since [facility] the antigen present in the sample may b e below the detection limit of the test. Performing Organization Address City/[facility] one Number [address] [facility] * Legionella antigen, urine (05/04/2019 7:53 PM CDT) Legionella Urine Antigen Negative - see commentComment: [facility] Negative for L. pneumophila [facility] serogroup 1 antigen, suggesting no recent or current infection with this serogroup. Legionellosis cannot be ruled out since other serogroups and species may cause disease. Specimen Urine Performing Organization Address City/[facility] Cent[facility] Ph one Number [address] [facility] * Urine culture (05/04/2019 7:53 PM CDT) Only the most recent of 2 results within the time period is included. Result <10,000 col/mL skin chase [facility] Specimen Urine Performing Organization Address [facility] one Number [address] [facility] * PT/aPTT (05/04/2019 7:29 PM CDT) Only the most recent of 4 results within the time period is included. Protime 18.9 (H) 11.9 - 14.2 seconds [facility] INR 1.6 <=5.9 [facility] PTT 40.7 (H) 22.5 - 36.0 seconds [facility] Specimen Blood Narrative Performed At Effective 07/24/2018: PT Reference Range Change [facility] New: 11.9-14.2Previous: 11.7-14.7 [facility] MEDICAL CE NTER RECOMMENDED COUMADIN/WARFARIN INR THERA PY RANGES STANDARD DOSE: 2.0-3.0Includes: PRO PHYLAXIS for venous thrombosis, systemic embolization; TREATMENT for venous thro mbosis and/or pulmonary embolus. HIGH RISK: Target INR is 2.5-3.5 for pa tients wiht mechanical heart valves. Performing Organization Address [facility] one Number [place] [address] [facility] * Blood Culture - Routine (Left Venipuncture) (05/04/2019 7:29 PM CDT) Only the most recent of 16 results within the time period is included. Result No growth in 5 days [facility] Specimen Blood Performing Organization Address [facility] one Number [address] [facility] * B-type Natriuretic Factor (BNP) (05/04/2019 7:29 PM CDT) BNP 612 (H) 0 - 100 pg/mL [facility] Specimen Blood Narrative Performed At Manager Division ID - DB [facility] Performing Organization Address [facility] Ph one Number [address] [address] 0 [phone] [address] * Rapid Influenza A&B Screen (05/04/2019 7:28 PM CDT) Rapid Influenza A Antigen Negative Negative, Inconclusi ve [facility] Rapid influenza B Antigen Negative Negative, Inconclusi ve [facility] Specimen Nasal Performing Organization Address [facility] Ph one [place] [address] 0 [phone] [address] * CRITICAL CARE (05/04/2019 6:47 PM [...] included. Specimen Narrative Performed At FINAL REPORT [facility] EXAM: Chest one view COMPARISON: December 22, 2018 Clinical history: Weakness FINDINGS: There is persistent cardiomeg daniel. There is interval improvement in pulmonary edema. The rig ht internal jugular chest tunneled dialysis catheter appears unch anged in position. The regional osseous structures are unremar kable Signed: Victorino Haines MD Report Verified Date/Time: 0 18:08:08 Reading Location: [facility] C013T Transiti onal Reading Room Procedure Note [...] Report Verified Date/Time: 05/04/2019 18:08:08 Reading Location: [facility] B1 C013T Transitional Reading Room Performing Organization Address City/State/Zipcode Ph one Number [facility] * US pelvis with doppler (02/03/2019 9:35 AM CERTIFIED RESIDENTIAL MEDICATION AIDE) Specimen Narrative Performed At FINAL REPORT [facility] Pelvic ultrasound dated 02/03/2019. COMMENT: Real-time transpelvic [...] artery measures 1.0 cm. The left internal medicine veterinary technician al iliac artery is not visualized. The bilateral common and external iliac veins are patent. IMPRESSION: Unremarkable pelvic vascula ture. Signed: Keith Garcia MD Report Verified Date/Time: 9 11:35:01 Reading Location: [address] Radiolo gy Reading Room Procedure Note Interface, External Ris In - 02/03/2019 11:37 AM CERTIFIED RESIDENTIAL MEDICATION AIDE FINAL REPORT Pelvic ultrasound dated 02/03/2019. COMMENT: [...] Report Verified Date/Time: 02/03/2019 11:35:01 Reading Location: [address] Radiology Reading Room Performing Organization Address [facility] one Number GE RIS * Vitamin B12 and Folate (01/18/2019 5:47 PM CERTIFIED RESIDENTIAL MEDICATION AIDE) Only the most recent of 2 results within the time period is included. Vitamin B12 1,988 (H) 213 - 816 pg/mL [facility] Folate 17.8 >=7.0 ng/mL [facility] Specimen Blood Performing Organization Address [facility] one Number [address] [facility] * Lactate dehydrogenase (LDH) (01/18/2019 5:47 PM CERTIFIED RESIDENTIAL MEDICATION AIDE) Only the most recent of 3 results within the time period is included. LDH 192 125 - 220 U/L [facility] Specimen Blood Performing Organization Address [facility] one Number [address] [facility] * Haptoglobin (01/18/2019 5:47 PM CERTIFIED RESIDENTIAL MEDICATION AIDE) Only the most recent of 3 results within the time period is included. Haptoglobin 14 14 - 258 mg/dL [facility] Specimen Blood Performing Organization Address [facility] one Number [address] [facility] * Hemoglobin and hematocrit (01/18/2019 11:17 AM CERTIFIED RESIDENTIAL MEDICATION AIDE) Only the most recent of 3 results within the time period is included. Hemoglobin 7.5 (L) 13.7 - 17.5 GM/DL [facility] Hematocrit 23.0 (L) 40.1 - 51.0 % [facility] Specimen Blood Performing Organization Address [facility] Ph one Number [facility] [address] [place], [place] [address] [facility] * CBC (Hemogram only) (01/18/2019 2:51 AM CERTIFIED RESIDENTIAL MEDICATION AIDE) Only the most recent of 5 results within the time period is included. WBC 6.6 3.5 - 10.5 K/L [facility] RBC 2.11 (L) 4.63 - 6.08 M/L [facility] [facility] Hemoglobin 6.7 (L) 13.7 - 17.5 GM/DL [facility] Hematocrit 20.2 (L) 40.1 - 51.0 % [facility] MCV 95.7 (H) 79.0 - 92.[address] [facility] MCH 31.8 25.7 - 32.[address] [facility] MCHC 33.2 32.3 - 36.5 GM/DL [facility] RDW 17.3 (H) 11.6 - 14.4 % [facility] Platelets 74 (L) 150 - 450 K/CU MM [facility] MPV 10.1 9.4 - 12.[address] [facility] nRBC 0 0 - 0 /[address] [facility] Specimen Blood Performing Organization Address City/[facility] Ph one Number [facility] [address] [place], [place] [address] [facility] * HLA TYPING CII (01/16/2019 3:56 PM CERTIFIED RESIDENTIAL MEDICATION AIDE) HLA-DR AG1 15 [facility] HLA TESTING HLA-DR AG2 4 [facility] TEST[facility] HLA-DR AG4-2 53 [facility] HLA TESTING HLA-DR AG5-1 51 [facility] HLA TESTING HLA-DQA1 AG 1-1 01 [facility] HLA TESTING HLA-DQA1 AG 1-2 03 [facility] HLA TESTING HLA-DQB1 AG 1-1 6 [facility] HLA TESTING HLA-DQB1 AG 1-2 8 [facility] HLA TESTING HLA-DPA1 AG 1-1 01 [facility] HLA TESTING HLA-DPA1 AG 1-2 01 [facility] TEST[facility] HLA-DPB1 AG 1-1 02:01 [facility] TEST[facility] HLA-DPB1 AG 1-2 04:02 [facility] TEST[facility] Specimen Blood Narrative Performed At Disclaimer: [facility] HLA TESTING This test was developed and its perform ance characteristics determined by the [facility] Laboratory. It has not been cleared or [...] Performing Organization Address City/State/Zipcode Ph one Number [facility] HLA TESTING ONE [facility] Yovany, MS: [id number], [place] [address] CLIA#[id number] CAP#[id number] UNOS#[id number] * HLA TYPING CI (01/16/2019 3:56 PM CERTIFIED RESIDENTIAL MEDICATION AIDE) HLA-A AG1 3 [facility] TESTING HLA-A AG2 68 [facility] TESTING HLA-B AG1 7 [facility] HLA TESTING HLA-B AG2 35 [facility] HLA TESTING HLA-C AG1 7 [facility] HLA TESTING HLA-C AG2 7 [facility] HLA TESTING HLA-B BW1 6 [facility] HLA TESTING HLA-B BW2 6 [facility] TEST[facility] Specimen Blood Narrative Performed At Disclaimer: [facility] HLA TESTING This test was developed and its perform ance characteristics determined by the [facility] Laboratory. It has not been cleared or [...] laboratory testing. Performing Organization Address [facility] one Number [facility] Gregorio Pedroza, MS: [id number], [place] [address] CLIA#[id number] CAP#[id number] UNOS#[id number] * FLOW PRA CLASS II WITH REFLEX TO ANTIBODY SPECIFICITY (01/16/2019 3:56 PM CERTIFIED RESIDENTIAL MEDICATION AIDE) Flow Class II Percent 0 [facility] NG Positive Specimen Blood Narrative Performed At Disclaimer: [facility] HLA TESTING This test was developed and its perform ance characteristics determined by the [facility] Laboratory. It has not been cleared or [...] complexity clinical laboratory testing. Performing Organization Address [facility] one Number [facility] ONE Gregorio Pedroza, MS: [id number], [place] [address] CLIA#[id number] CAP#[id number] UNOS#[id number] * FLOW PRA CLASS I WITH REFLEX TO ANTIBODY SPECIFICITY (01/16/2019 3:56 PM CERTIFIED RESIDENTIAL MEDICATION AIDE) Flow Class I Percent 20 [facility] G Positive Specimen Blood Narrative Performed At Disclaimer: [facility] HLA TESTING This test was developed and its perform ance characteristics determined by the [facility] Laboratory. It has not been cleared or [...] complexity clinical laboratory testing. Performing Organization Address [facility]/Zipcode Ph one Number [facility] ONE [facility] Yovany, MS: [id number], [place] [address] CLIA#[id number] CAP#[id number] UNOS#[id number] * AB SPECIFICITY CLASS I (01/16/2019 3:56 PM CERTIFIED RESIDENTIAL MEDICATION AIDE) AB Specificity Class I NO CLASS I ANTIBODY DETECTED [facility] TESTING WITH MFIs > 4000 Specimen Blood Narrative Performed At Disclaimer: [facility] HLA TESTING This test was developed and its perform ance characteristics determined by the [facility] Laboratory. It has not been cleared or [...] laboratory testing. Performing Organization Address [facility] one Number [facility] HLA TESTING ONE [facility] Yovany, MS: [id number], [place] [address] CLIA#[id number] CAP#[id number] UNOS#[id number] * Alpha fetoprotein (AFP), tumor marker (01/16/2019 3:56 PM CERTIFIED RESIDENTIAL MEDICATION AIDE) Alpha-Fetoprotein 2.7 <10.0 ng/mL [facility] Specimen Blood Performing Organization Address [facility] one Number [address] [address] MEDICAL CENTER * Drug screen, urine, transplant (01/04/2019 5:39 PM CERTIFIED RESIDENTIAL MEDICATION AIDE) Specimen Urine Narrative Performed At This result has an attachment that is n ot available. Performing Organization Address [facility] one Number [facility] [address] [phone] * Drug screen, urine, comprehensive (01/04/2019 5:39 PM CERTIFIED RESIDENTIAL MEDICATION AIDE) Only the most recent of 2 results within the time period is included. Specimen Urine Narrative Performed At This result has an attachment that is n ot available. * Ethanol (01/04/2019 9:42 AM CERTIFIED RESIDENTIAL MEDICATION AIDE) Only the most recent of 2 results within the time period is included. Ethanol Lvl <10 <=10 mg/dL [facility] Specimen Blood Performing Organization Address City/State/Zipcode Ph one Number [facility] [address] [place], [place] [address] [facility] * Vancomycin level, random (12/26/2018 3:56 AM CDT) Only the most recent of 2 results within the time period is included. Vancomycin Rm 16.4 ug/mL [facility] Specimen Blood Narrative Performed At Reference Range: No Normals [facility] Performing Organization Address City/State/[facility] Ph one Number [facility] [address] [place], [place] [address] [facility] * Venous doppler legs bilateral (12/24/2018 6:55 PM CDT) Ejection Fraction [facility]ART[facility] MKCKESSON CPACS Specimen Impressions Performed At Right Impression [facility] 1. There is no deep [...] PV LAB - Lower Extremities DVT Study [facility]ART [facility] Demographics MKCKESSON [facility] Patient Name INDRA GALVAN Date of Study12/24/2018 RUSS VEE JR. [id number] Visit Number [id number] Gender Male Accession Number [id number] Date of Birth1980 Barry Hoyt Vlad [id number] Physician SonographDagoberto Maki RVS Interpreting Physician ConstantinoMD [...] 12/24/2018 YAN CORDERO Age 38 Visit Number [id number] Gender Male Accession Number [id number] Date of 1980 Referring Audie Hoyt MD Room Number 7604 Physician Him Director Cb Maki RVS Interpreting Physician MELVA Meeks [...] CDT) Specimen Narrative Performed At FINAL REPORT [employer] [facility] CT right lower extremity. CLINICAL HISTORY: Knee trauma, tenderne ss or effusion, initial exam (Age > 1y) TECHNIQUE: Contiguous axial images of t he right lower extremity without contrast with coronal and sagit chely reformations. This exam was performed according to the [facility] dose optimization program which includes automated exposure [...] Verified Date/Time: 12/23/2018 03:00:15 Performing Organization Address [facility] one Number GE RIS * Vancomycin level, trough (12/22/2018 4:26 PM CDT) Vancomycin Tr 40.3 (HH) 10.0 - 20.0 ug/mL [facility] Specimen Blood Performing Organization Address [facility] Ph one Number [address] [address] [facility] * Fibrinogen (12/22/2018 3:55 AM CDT) Fibrinogen 195 (L) 225 - 434 mg/dl [facility] Specimen Blood Performing Organization Address [facility] one Number [address] [address] [facility] * POC-Lactic Acid, Venous (12/21/2018 4:01 AM CDT) Only the most recent of 2 results within the time period is included. POC-Lactic Acid, Venous 1.6Comment: TESTED AT [facility] 0.9 - 1.7 mmol/L [place] [phone] [facility] [address] [facility] Specimen Blood Performing Organization Address [facility] Ph one Number [facility] [address] [place], [place] [address] [facility] * Ammonia (12/21/2018 2:48 AM CDT) Only the most recent of 2 results within the time period is included. Ammonia 65 18 - 72 mol/L [facility] Specimen Blood Performing Organization Address [facility] Ph one Number [facility] [address] [place], [place] [address] [facility] * XR knee complete 4 views right [...] AM CDT) % Neutros (manual) 80 % [facility] % Lymphs (manual) 6 % [facility] % Monos (manual) 7 % [facility] % Eos (manual) 4 % [facility] % Baso (manual) 0 % [facility] % Bands (manual) 3 0 - 10 % [facility] # Neutros (manual) 15.76 (H) 1.80 - 8.00 K/L [facility] # Lymphs (manual) 1.18 (L) 1.48 - 4.50 K/L [facility] # Monos (manual) 1.38 (H) 0.00 - 1.30 K/L [facility] # Eos (manual) 0.79 (H) 0.00 - 0.50 K/L [facility] # Baso (manual) 0.00 0.00 - 0.20 K/L [facility] # Bands (manual) 0.6 0.0 - 0.8 K/L [facility] Total Counted 100 [facility] Bands plus Segmented 16.35 [facility] Neutrophils [facility] WBC Morphology Normal [facility] Platelet Morphology Normal [facility] Anisocytosis 2+ moderate [facility] All Cells 2+ moderate [facility] Poikilocytes 1+ few [facility] Specimen Blood Performing Organization Address City/State/Zipcode Ph one Number [place] [address] MEDICAL CENTER * IR Tunneled Catheter Insertion (11/14/2018 12:38 PM CDT) Specimen Narrative Performed At FINAL REPORT [facility] Conversion of a nontunneled to tunneled dialysis catheter. History: Renal failure. Modality: Fluoroscopy. Sedation: Moderate sedation was adminis tered. 0.5 mg of Versed and 50 mcg of fentanyl IV was used for mode rate sedation monitored under my direction. Total intra-service time of sedation [id number]. The patient's vital signs were monitore d throughout the procedure and recorded in the patient's medical recor d by the nurse. Passport Application Examiner:Regis Ortega MD. Dye House Hand:None. Approach: Right internal jugular vein Estimated blood [...] MD Report Verified Date/Time: 10:01:43 Reading Location: [place] [id number] Angio Bod y Reading Room Procedure Note [...] the patient's medical record by the nurse. Passport Application Examiner: Regis Ortega MD. Dye House Hand: None. Approach: Right internal jugular vein Estimated [...] by blunt dissection. A 19 cm right Bahamian Duraflow 2 catheter was brought through the [...] to a tunneled dialysis catheter. Signed: Regis Otrega MD Report Verified Date/Time: 11/15/2018 10:01:43 Reading Location: [facility] P048 Angio Body Reading Room Performing Organization Address City/State/Zipcode Ph one Number [facility] * XR chest 2 views (11/12/2018 9:38 PM CDT) Specimen Narrative Performed At FINAL REPORT [facility] Chest, two views. MEDICAL HISTORY: Cough. [...] Report Verified Date/Time: 9 23:58:30 Reading Location: [address] Consult Reading Room Procedure Note Interface, [...] Report Verified Date/Time: 11/12/2018 23:58:30 Reading Location: [address] Consult Reading Room Performing Organization Address City/[facility] Ph one Number RIS * Protein, random urine (11/12/2018 1:55 AM CDT) Protein, Urine 122 (H) 0 - 14 mg/dL [facility] Specimen Urine Performing Organization Address City/[facility]/[place] Ph one Number [place] [address] [facility] * Creatinine, random urine (11/12/2018 1:55 AM CDT) Only the most recent of 2 results within the time period is included. Creatinine, Ur 225.8 mg/dL [facility] Specimen Urine Narrative Performed At Reference Range: No Normals [facility] Performing Organization Address City/State/Zipcode Ph one Number [facility] [address] [place], [place] [address] MEDICAL CENTER * REPORT OF PROCEDURE - ENDOSCOPY URL (11/10/2018 2:04 PM CDT) Narrative Performed At This result has an attachment that is n ot available. * Tissue Exam (11/10/2018 1:25 PM CDT) Only the most recent of 2 results within the time period is included. Case Report Surgical Pathology [facility] TH Report [facility] Case: [id number] Authorizing Provider:Devyn Lantigua MDCollected: 11/10/2018 1325 Ordering Location: [address] Received: 11/11/2018 0818 Service Pathologist: Be Arenas MD Specimens: A) - Polyp, Colon - Sigmoid, sigmoid polyp bx B) - Cecum, cecum ulcer bx ADDENDUM Immunostains for HSV1, HSV2, [facility] and CMV performed on [address] are negative. DIAGNOSIS PART A SIGMOID COLON POLYP, [facility] POLYPECTOMY: [facility] HYPERPLASTIC POLYP. PART B CECUM BIOPSY FOR SUSPECTED ULCER: NONSPECIFIC ACTIVE COLITIS WITH ULCERATION AND REGENERATIVE FEATURES. NEGATIVE FOR GRANULOMAS, DYSPLASIA, OR INVASIVE CARCINOMA. NO MORPHOLOGIC OR IMMUNOPHENOTYPIC EVIDENCE OF LYMPHOMA. SEE DIAGNOSTIC COMMENT. IMMUNOSTAINS FOR VIRAL MARKERS PENDING, ADDENDUM TO FOLLOW. Signing Pathologist Direct Phone Line: [phone] COMMENT PART B: Immunohistochemical [facility] studies performed on [address] demonstrate the lymphoid population to be positive for CD20 positive B cells and CD3/CD5 positive T cells. There is no aberrant co-expression of CD20 and CD5. Cyclin D1 is negative. There is no morphologic or immunophenotypic evidence of lymphoma. CPT Code(s) 59187h8, 31224, 59372e5 [facility] CLINICAL HISTORY [facility] SPECIMEN SOURCE A. Sigmoid polyp biopsy. B. [facility] Cecum ulcer biopsy [facility] GROSS DESCRIPTION Part A. Received in formalin [facility] labeled with the patient's [facility] name, accession number and "polyp, colon-sigmoid" is a 0.2 cm guajardo soft tissue fragment, which is submitted in toto in A1. Part B. Received in formalin labeled with the patient's name, accession number and "cecum" are four irregular guajardo soft tissue fragments ranging 0.1-0.2 cm, which are submitted in toto in B1. CG/ew MICROSCOPIC DESCRIPTION Performed. [facility] SPECIAL STUDIES The interpretation of this [facility] case included the use of [facility] immunohistochemistry or special stains. BLOCK B1- HSV1, HSV2, CMV, CD20, CD3, CD5, CYCLIN D1 Control Slides Examined: In-house known positive controls were evaluated along with the test tissue. These control slides run alongside of the patients sample show appropriate staining. Internal positive and negative controls when available are evaluated Immunohistochemistry technical testing was performed at [facility], Pathology Laboratory where it was [...] Performing Organization Address City/State/Zipcode Ph one Number [facility] [address] [place] [address] MEDICAL CENTER * HEMODIALYSIS INPATIENT (11/09/2018 3:25 [...] 4:20 AM CDT) Yari Antigen Titer 1:2 [facility] Specimen Blood Performing Organization Address [facility] Ph one Number [address] [address] [facility] * Yari antigen with reflex to titer (11/08/2018 4:20 AM CDT) Yari Antigen Positive [facility] Specimen Blood Performing Organization Address City/[facility] Ph one Number [address] [address] [facility] * CT chest with high resolution/ild (11/08/2018 12:16 AM CDT) Specimen Narrative Performed At FINAL REPORT [employer] [facility] CT of the chest, without contrast Clinical [...] Report Verified Date/Time: 9 11:29:31 Reading Location: [facility] C013X [employer] nsult Reading Room Procedure Note Interface, External [...] Report Verified Date/Time: 11/08/2018 11:29:31 Reading Location: [facility] C013X Ortho Consult Reading Room Performing Organization Address City/State/Zipcode Ph one Number GE [facility] * Urinalysis w/Microscopic (11/05/2018 8:47 PM CDT) Color, UA Dark Yellow [facility] Clarity, UA Clear [facility] Specific [place], UA 1.012 1.001 - 1.035 [facility] pH, UA 6.0 5.0 - 8.0 [facility] Protein, UA 20 mg/dL (A) Negative [facility] Glucose, UA Negative Negative [facility] Ketones, UA Negative Negative [facility] Bilirubin, UA Positive (A) Negative [facility] Blood, UA Negative Negative [facility] Nitrite, UA Negative Negative [facility] Leukocytes, UA Negative Negative [facility] Urobilinogen, UA 3.0 (H) 0.2 - 1.0 mg/dL [facility] RBC, UA 0 /HPF [facility] WBC, UA 1 /HPF [facility] Bacteria, UA Occasional [facility] Mucus Rare [facility] Specimen Source Urine, Clean Catch [facility] Specimen Urine Performing Organization Address [facility]/[place] Ph one Number [address] 0 [phone] [place] [address] * Hepatitis B core antibody, total (11/05/2018 3:32 PM CDT) Hep B Core Total Ab Nonreactive Nonreactive [facility] Specimen Blood Performing Organization Address [facility]/[place] Ph one [address] 7[address] 0 [phone] [place] [address] * Hepatitis B surface antibody (11/05/2018 3:32 PM CDT) Hep B S Ab <8.0 <8.0 mIU/mL [facility] Specimen Blood Performing Organization Address [facility] one [address] 0 [phone] [place] [address] * IR non-tunneled dialysis catheter insertion (11/05/2018 12:10 PM CDT) Specimen Narrative Performed At FINAL REPORT [facility] PROCEDURE: Non-tunneled dialysis cathet er placement [...] applied. Catheter placed: Schon XL Catheter size (Bahamian): 14 Catheter length (cm): 15 Catheter flush: [...] Report Verified Date/Time: 9 19:49:40 Reading Location: [facility] B1 P048 Angio Bod y Reading Room [...] applied. Catheter placed: Schon XL Catheter size (Bahamian): 14 Catheter length (cm): 15 Catheter flush: [...] Report Verified Date/Time: 11/05/2018 19:49:40 Reading Location: [place] [address] Angio Body Reading Room Performing Organization Address [facility] one Number [facility] * Sodium, random urine (10/30/2018 8:42 PM CDT) Only the most recent of 2 results within the time period is included. Sodium Urine 34 meq/L [facility] Specimen Urine Narrative Performed At Reference Range: No Normals [facility] Performing Organization Address [facility] Ph one Number [facility] [address] [place] [address] MEDICAL CENTER * US paracentesis (10/27/2018 3:07 PM CDT) Specimen Narrative Performed At FINAL REPORT [facility] Paracentesis dated 10/27/2018 Procedure: Ultrasound-guided paracentes is. Preprocedure diagnosis: Ascites Postprocedure diagnosis: Ascites Conscious sedation: None. Radiologist: Keith Garcia M.D. Dye House Hand: None Anesthesia: 1% Xylocaine mixed with sod ium bicarbonate local anesthesia. Technique: After obtaining informed con sent, ultrasound-guided paracentesis was performed under usual sterile technique. Using a 5 zambian drainage catheter, puncture was made in the right lower quadrant abdomen. Approximately 2000 cc of clear yellowish fluid was removed. Patient tolerated the procedur e well without complication. Complication: None Graft/Implant: None Estimated Blood Loss: None Impression: Ultrasound-guided paracente sis. Signed: Keith Garcia MD Report Verified Date/Time: 9 16:58:17 Reading Location: [address] Body Reading Room Procedure Note Interface, External Ris In - 10/27/2018 5:00 PM CDT FINAL REPORT Paracentesis dated 10/27/2018 Procedure: Ultrasound-guided paracentesis. Preprocedure diagnosis: Ascites Postprocedure diagnosis: Ascites Conscious sedation: None. Radiologist: Keith Garcia M.D. Dye House Hand: None Anesthesia: 1% Xylocaine mixed with sodium bicarbonate local anesthesia. Technique: After obtaining informed consent, ultrasound-guided paracentesis was performed under usual sterile technique. Using a 5 zambian drainage catheter, puncture was made in the right lower quadrant abdomen. Approximately 2000 cc of clear yellowish fluid was removed. Patient tolerated the procedure well without complication. Complication: None Graft/Implant: None Estimated Blood Loss: None Impression: Ultrasound-guided paracentesis. Signed: Keith Garcia MD Report Verified Date/Time: 10/27/2018 16:58:17 Reading Location: [facility] C013Y CT Body Reading Room Performing Organization Address City/State/Zipcode Ph one Number GE RIS * Body fluid cell count with differential (10/27/2018 3:00 PM CDT) Appearance Slightly Hazy (A) Clear [facility] Color [place] (A) Colorless, Straw [facility] RBCs 309 (H) <=1 /cu mm [facility] Adjusted WBC Count 147 (H) <=5 /cu mm [facility] Lining Cells 54 (H) <=1 /cu mm [facility] % Segs 10 % [facility] % Lymphs 18 % [facility] % Monos 72 % [facility] % Eos 0 % [facility] % Baso 0 % [facility] Container Body Fluid EDTA Tube [facility] Specimen Body Fluid Performing Organization Address City/State/Zipcode Ph one Number [facility] [address] [place], [place] [address] [facility] * US abdomen limited (10/26/2018 4:21 AM CDT) Specimen Narrative Performed At FINAL REPORT [facility] ULTRASOUND ABDOMEN LIMITED HISTORY: Ascites, assess for [...] Report Verified Date/Time: 9 13:11:32 Reading Location: [address] Transiti onal Reading Room Procedure Note [...] Report Verified Date/Time: 10/26/2018 13:11:32 Reading Location: [address] Transitional Reading Room Performing Organization Address City/[facility]/Zipcode Ph one Number GE RIS * Peripheral Blood Smear - Path Review (10/21/2018 5:01 AM CDT) RBC Morphology Polychromasia [facility] WBC Morphology Toxic Granulation [facility] Pathologist Review Cell counts confirmed. [facility] Pathologist: Samina Arteaga M.D. [facility] (electronic signature) [facility] Specimen Blood Performing Organization Address City/[facility] Ph one Number [place] [phone] [facility] * 2D Echo W/Doppler(CW/PW/Color) (10/20/2018 1:30 PM CDT) Ejection Fraction [facility] ECHO HEARTLAB [facility] Specimen Narrative Performed At Transthoracic Echocardiography Report (TTE) [facility] ECH O HEARTLAB Demographics [facility] Patient NameINDRA GALVAN Date of Study10/20/2018 YAN Daniel Gender Male Visit [id number] Race Unknown Room [id number] Number Date of 1980 ReferringMuaurea plummer Age [...] 10/20/2018 YAN CORDERO Gender Male Visit Number [id number] Race Unknown Room Number 743 Number Date of 1980 Referring Minal Taylor Physician Age 37 year(s) Him Director Wilmer Lowell Interpreting Physician MELVA Hanson Procedure [...] LVOT CI: 3.97 l/min/m^2 Performing Organization Address City/[facility] Ph one Number [facility] ECHO HEARTLAB MKCKESSON [...] PM CDT) Urea Nitrogen, Ur 120 mg/dL [facility] Specimen Urine Narrative Performed At Reference Range: No Normals [facility] Performing Organization Address City/[facility] Ph one Number [place] [phone] [facility] * US doppler (10/17/2018 5:12 PM CDT) Specimen Narrative Performed At FINAL REPORT [facility] Ultrasound of the Abdomen and Duplex Do [...] seen with no sonographic evidence of ac sioux cholecystitis. The spleen measures 14.6 cm, enlarged. [...] Report Verified Date/Time: 9 17:43:28 Reading Location: [address] Consult Reading Room Procedure Note Interface, [...] Report Verified Date/Time: 10/17/2018 17:43:28 Reading Location: [facility] C013W Consult Reading Room Performing Organization Address City/State/Zipcode Ph one Number [facility] * US abdomen complete (10/17/2018 5:12 PM CDT) Specimen Narrative Performed At FINAL REPORT [facility] Ultrasound of the Abdomen and Duplex Do [...] seen with no sonographic evidence of ac sioux cholecystitis. The spleen measures 14.6 cm, enlarged. [...] Report Verified Date/Time: 9 17:43:28 Reading Location: [address] Consult Reading Room Procedure Note Interface, [...] Report Verified Date/Time: 10/17/2018 17:43:28 Reading Location: [facility] C013W Consult Reading Room Performing Organization Address City/[facility]/Zipcode Ph one Number GE RIS * Creatine Kinase (CK) (10/16/2018 11:29 PM CDT) Total CK 29 29 - 200 U/L [facility] Specimen Blood Performing Organization Address City/[facility]/Zipcode Ph one Number [address] [facility] after 09/25/2018 Insurance Payer Benefit Subscriber ID Type Phone Address Plan / Group [employer]UE [employer] BCBS PPO xxxxxxxxxxxx PPO [phone] [address] [place] [address] CHOICE [phone] Advance Directives For more information, please contact: [address] [address] Date Inactivated Comments Code Status Date Activated [...]
--- OUTSIDE RECORDS SUMMARY | 2019-09-26 21:33 | XMS REPORT | Continuity of Care Document ---
Author Author [facility] t Organization [facility] t Address [address] [place] [address] Phone Unavailable Care Team Providers Care Merchandise For Resale Purchasing Agent Name Role Phone JOSE VOSS PCP KHLOE BOX Attphys Unavailable Earnest FRYE, Trudi Pandey Attphys Anastacio Killian Attphys Unavailable Jose Alejandro URGENT CARE PHYSICIAN, Michael Attphys Unavailable Anaya MURPHY, Kin Radford Attphys Unavailable Carlos A FRYE MPH, Laura Merchant Attphys [phone] Dorothy Boss Attphys Unavailable Elton SMITH, Katie Attphys Unavailable Laura Schwartz Attphys Unavailable Tim MURPHY, Brannon Mccartney Attphys Unavailable Steven URGENT CARE PHYSICIAN, Laine Carreon Attphys Unavailable George RN, Emily Attphys Unavailable Mabel MURPHY, Nay Attphys Unavailable Sanjana De Leon MD Attphys Danii Lantigua MD Attphys DANII LANTIGUA Attphys Unavailable Sea SMITH, Abby Attphys Unavailable Marissa Mixon Attphys Unavailable Ady MURPHY, Katie Attphys Unavailable Silvano MURPHY, Delores Attphys Unavailable 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, [place] Abel Attphys Kenisha Gordillo Attphys Unavailable Darvin WICK, Charmaine Howe Attphys Lj FRYE, Iman Geronimo Attphys Malou FRYE, Erin Mir Attphys Elsie FRYE, Robina Cummins Attphys [phone] Connie Christensen Attphys Unavailable Eduardo FRYE, Robbie Attphys Dea FRYE, Karey Mcmahan Attphys Sheikh MELVA, Melisa Lamb Attphys Ede RN, Radha Attphys Unavailable IMAN CALHOUN Attphys Unavailable Juan Antonio RN, Servando Attphys Unavailable Alvarez RN, Xu Attphys Unavailable Jere RN, Martha Attphys Unavailable Joel FRYE, Gracie Rosamaria Attphys Laura Emery Attphys Unavailable Gracie MALDONADO ROSAMARIA Attphys Unavailable System, Not In Provider Attphys Unavailable Jaime FRYE, Hiwot Tinoco Attphys Corine FRYE, Melisa Belcher Attphys Eliceo FRYE, Lorna Rayo Attphys Hiwot JOHNSON Attphys Unavailable Kendal FRYE, [facility] Attphys [phone] OZIEL VALDEZ Attphys Unavailable José Miguel FRYE, Oziel Christie Attphys [phone] Reggie FRYE, Yasmin Fermin Attphys Kenisha Rojas Attphys Unavailable VENTURA BREEN Attphys Unavailable Julia FRYE, Ventura Renee Attphys Zenon Taylor MD Attphys [phone] Evelina FRYE, Audie Attphys Caden FRYE, Melisa Attphys Hemalatha Alfredo Attphys Unavailable ZAINAB, ZENON KAUFMAN Attphys Unavailable Kurt FRYE, Coreen Flanagan Attphys Kin Cavazos Attphys Unavailable Samina Silva CRNA Attphys [phone] Jose FRYE, Vinay Juan Attphys Chaim FRYE, Jazzmine Estrella Attphys [phone] Isak FRYE, Genna Begum Attphys Anton DUQUEICA [...] Date Expiration Date S gideon BC/BSBC/BS [id number]-Prese [id number].[address], [place] [address] xxxxxxxxxxxx 2017 00:00:00 Formerly [facility] PPO POS EPO C [id number] [address], [place] [address] xxxxxxxxxxxx [facility] Ppo [id number] 2018 00:00:00 [facility] Problems Condition Name Condition Details Condition Category Status Onset Date Resolution Date Last Treatment Date Treating Clinician Comments Source Sepsis Sepsis Disease Active 2019-05-04 00:00:00 [facility] Symptomatic anemia Symptomatic anemia Disease Active 2019-01-17 00:00:0 0 [facility] Tubular adenoma Tubular adenoma Disease Active 2019-01-17 00:00:00 [facility] Rash Rash Disease Active 2019-01-17 00:00:00 [facility] Screening for cancer Screening for cancer Disease Active 00:00:00 [facility] Alcohol use disorder, mild, abuse Alcohol use disorder, mild, ab use Disease Active 2019-01-17 00:00:00 [facility] Pedal edema Pedal edema Disease Active 2019-01-17 00:00:00 [facility] Hepatic encephalopathy Hepatic encephalopathy Disease Active 2019-01-17 00:00:00 [facility] Alcoholic hepatitis Alcoholic hepatitis Disease Active 2019-01-17 00:00 :00 [facility] Alcoholic cirrhosis Alcoholic cirrhosis Disease Active 2018-12-21 00:00 [facility] Sepsis, unspecified organism Sepsis, unspecified organism Disease Active 2018-12-21 00:00:00 [facility] ESRD (end stage renal disease) ESRD (end stage renal disease) Disea se Active 2018-12-21 00:00:00 [facility] Liver failure Liver failure Disease Active 2018-10-16 00:00:00 [facility] Acute blood loss anemia Acute blood loss anemia Disease Active 2018-06-26 00:00:00 [facility] GIB (gastrointestinal bleeding) GIB (gastrointestinal bleeding) Dis ease Active 2018-06-21 00:00:00 [facility] Hemorrhagic shock Hemorrhagic shock Disease Active 2018-06-21 00:00:00 [facility] Hyperbilirubinemia Hyperbilirubinemia Disease Active 2018-06-01 00:00:0 0 [facility] Sinus tachycardia Sinus tachycardia Disease Active 2018-01-28 00:00:00 [facility] Prediabetes Prediabetes Disease Active 2018-01-28 00:00:00 [facility] Jaundice Jaundice Problem Active [facility] Pneumonia Pneumonia Problem Active [facility] Obesity Obesity Disease Active [facility] Fatty liver Fatty liver Disease Active [facility] Dark emesis Dark emesis Disease Active [facility] Hypotension due to hypovolemia Hypotension due to hypovolemia Disease Active [facility] Acute renal failure with tubular necrosis Acute renal failure with tubular necrosis Disease Active [facility] ESRD (end stage renal disease) on dialysis ESRD (end s tage renal disease) on dialysis Disease Active [facility] ESRD on hemodialysis ESRD on hemodialysis Disease Active [facility] History of Past Illness Condition Name Condition Details Condition Category Status Onset Date Resolution Date Last Treatment Date Treating Clinician Comments Source Respiratory center failure Respiratory center failure Disease Resolved 2018-06-01 00:00:00 2018-12-23 00:00:00 2018-12-23 18:37:49 [facility] Acute respiratory failure with hypoxia Acute respiratory ericka lure with hypoxia Disease Resolved 2018-06-01 00:00:00 2018-12-23 00:00:00 2018-12-23 18:37:3 7 [facility] ARDS (adult respiratory distress syndrome) ARDS (adult respiratory distress syndrome) Disease Resolved 2018-06-01 00:00:00 2018-12-23 00:00:00 2 18:37:31 [facility] Acute kidney injury Acute kidney injury Disease Resolved 2018-05 00:00:00 2018-12-23 00:00:00 2018-12-23 18:37:33 [facility] Hyponatremia Hyponatremia Disease Resolved 2018-06-01 00:00:00 2 00:00:00 2018-12-23 18:37:52 [facility] Hypertension Hypertension Disease Resolved 2018-12-23 00: 00:00 2018-12-23 18:37:55 [facility] Allergies, Adverse Reactions, Alerts Allergy Name Allergy Type Status Severity Reaction(s) Onset Date Inacti ve Date Treating Clinician Comments Source Prednisone Drug Intolerance Active 2019-05-04 00:00:00 [facility] Ceftriaxone Drug Allergy Active Rash 2019-01-06 00:00:00 [facility] Family History Family Member Diagnosis Comments Start Date Stop Date Source Natural brother No Known Problem [facility] Natural father Hypertension [facility] Natural mother Hypertension [facility] Natural son No Known Problem [facility] Social History Social Habit Start Date Stop Date Quantity Comments Source Sex Assigned At [facility] Alcohol Comment 2019-02-04 00:00:00 2019-02-04 00:00:00 quit in 9 [facility] Alcohol intake 2018-01-25 00:00:00 2018-01-25 00:00:00 Current drinker of alcohol (finding) [facility] Smoking Status Start Date Stop Date Source Never smoker [facility] [place] Medications Ordered Medication Name Filled Medication Name Start Date Stop Da te Current Medication? Ordering Clinician Indication Dosage Frequency Signature (SIG) Comments Components Source traZODone (DESYREL) 50 MG tablet 2019-06-17 10:52:35 Yes 50mg QD Take 50 mg by mouth nightly. [facility] furosemide (LASIX) 10 mg/mL solution 2019-05-13 12:01:00 Ye s QD Take by mouth daily. [facility] colchicine (COLCRYS) 0.6 mg tablet 2019-05-11 00:00:00 23:59:00 No .6mg QD Take 1 tablet (0.6 mg total) by mouth da gunner for 11 days. [facility] FUROSEMIDE ORAL 2019-05-10 14:52:11 2019-05-10 00:00:00 No 80mg QD Take 80 mg by mouth daily . [facility] pantoprazole (PROTONIX) 40 MG tablet 2019-05-10 00:00:00 Ye s 40mg Q.5D Take 1 tablet (40 mg total) by mouth 2 (two) times daily. [facility] UNKNOWN 2019-02-04 09:37:27 2019-02-04 00:00:00 No QD daily Pt states he takes a medication to suppress his alcohol cravings . [facility] UNKNOWN 2019-02-04 09:37:25 2019-02-04 00:00:00 No naus ea as needed Pt takes dissolving tablet for nausea, unsure of name . [facility] thiamine 100 MG tablet 2019-02-04 00:00:00 Yes Portal hypertension (HCC) 100mg QD Take 1 tablet (100 mg total) by mouth daily. [facility] hydrOXYzine (ATARAX) 25 MG tablet 2019-01-16 00:00:00 2018 23:59:00 No Pruritus 25mg Take 1 tablet (2 5 mg total) by mouth every 6 (six) hours as needed for Itching for up to 30 days. [facility] traMADol (ULTRAM) 50 mg tablet 2019-01-06 00:00:00 Yes TK 1 T PO Q 8 H PRN P [facility] diphenhydrAMINE-zinc acetate (BENADRYL EXTRA STRENGTH) 2-0.1 % cream 2019-01-06 00:00:00 2020-01-06 23:59:00 No Apply topically 3 (three) times daily as needed for Itching. [facility] thiamine 100 MG tablet 2018-12-27 00:00:00 2019-02-04 00:00:00 N o 100mg QD Take 1 tablet (100 mg total) by mouth daily. [facility] traZODone (DESYREL) 50 MG tablet 2018-12-26 09:59:23 2018-11 00:00:00 No 50mg QD Take 50 mg by mouth nightly. [facility] midodrine (PROAMATINE) 10 MG tablet 2018-12-26 09:59:2 3 2018-12-26 00:00:00 No 10mg Q.[id number] Take 10 mg by mouth 3 (th ree) times daily. [facility] ondansetron (ZOFRAN-ODT) 4 MG disintegrating tablet 2018-12-26 09:59:23 2018-12-26 00:00:00 No 4mg Take 4 mg by mouth every 6 (six) hours as needed for Nausea. [facility] lactulose (CHRONULAC) 20 gram/30 mL solution 2018-12-26 00:00:00 Yes 30g Q.[id number] Take 45 mLs (30 g total) by mouth 3 ( three) times daily. [facility] r midodrine (PROAMATINE) 10 MG tablet 2018-12-26 00:00:00 Yes 10mg Q.8336500334314502756M Take 1 tablet (10 mg total) by mouth 3 ( three) times daily. [facility] phytonadione, vitamin K1, (MEPHYTON) 5 mg tablet 2018-12-26 00:00:00 2019-02-04 00:00:00 No 5mg QD Take 1 tablet (5 mg total) by mouth daily. [facility] ciprofloxacin HCl (CIPRO) 500 MG tablet 00:00:00 2018-12-29 23:59:00 No 500mg QD Take 1 tablet (500 mg total) by mouth daily for 3 days. [facility] heparin injection 1,000 units/mL for IV bolus/dialysis lock 2018-11-15 00:00:00 2018-11-15 23:59:00 No 1000U 1-3.6 mLs (1,000-3,600 Units total) by Intra-Catheter route once as needed (hemodialysis acute catheter packing) for up to 1 dose. [facility] traZODone (DESYREL) 100 MG tablet 2018-11-07 09:2018 00:00:00 No 100mg QD Take 100 mg by mouth nightly. [facility] lactulose (CHRONULAC) 20 gram/30 mL solution 201 11-05-11 09:2018-11-07 00:00:00 No 20g Q.[id number] Ta ke 20 g by mouth 3 (three) times daily Titrate to 3 BM's/day . [facility] furosemide (LASIX) 20 MG tablet 2018-11-07 09: 00:00:00 No 40mg QD Take 40 mg by mouth daily. [facility] folic acid (FOLVITE) 1 MG tablet 2018-11-07 00:00:00 2019-10 23:59:00 No 1mg QD Take 1 tablet (1 mg total) by mouth daily. [facility] pantoprazole (PROTONIX) 40 MG tablet 2018-11-07 00:00: 00 2019-05-10 00:00:00 No 40mg QD Take 1 tablet (40 mg total) by mouth [facility] lactulose (CHRONULAC) 20 gram/30 mL solution 201 11-05-11 00:00:00 2018-12-26 00:00:00 No 30g Q.[id number] Ta ke 45 mLs (30 g total) by mouth 3 (three) times daily. [facility] ipratropium (ATROVENT) 0.02 % nebulizer solution 2018-11-07 00:00:00 2018-12-26 00:00:00 No .5mg Take 2.5 mLs (0.5 mg total) by nebulization every 6 (six) hours as needed. [facility] levoFLOXacin (LEVAQUIN) IVPB 250 mg in dextrose 5% (D5W) 50 mL 2018-11-07 00:00:00 2018-12-26 00:00:00 No 250mg Q24H Inject 50 mLs (250 mg total) intravenously daily. [facility] melatonin 3 mg Tab tablet 2018-11-07 00:00:00 2018-12-26 00:00:0 0 No 6mg Take 2 tablets (6 mg total) by mouth every night as needed. [facility] octreotide (SANDOSTATIN) 100 mcg/mL Soln 2018-10 00:00:00 2018-12-26 00:00:00 No 100ug Q.[id number] In ject 1 mL (100 mcg total) subcutaneously 3 (three) times daily. [facility] phytonadione 0.8 mg/mL Soln ORAL solution 11-07 00:00:00 2018-12-26 00:00:00 No 5mg QD Take 6.25 mLs (5 mg total) by m outh daily. [facility] thiamine (B-1) 100 mg/mL injection 2018-11-07 00:00:00 11-05-30 00:00:00 No 100mg QD Inject 1 mL (100 mg total) intravenously daily. [facility] traZODone (DESYREL) 50 MG tablet 2018-11-07 00:00:00 2018-11 23:59:00 No 50mg Take 1 tablet (50 mg total) by mouth every night as needed for up to 30 days. [facility] midodrine (PROAMATINE) 5 MG tablet 2018-11-07 00:00:00 201 11-06-11 23:59:00 No 5mg Q.[id number] Take 1 ta blet (5 mg total) by mouth 3 (three) times daily for 30 days. [facility] guaiFENesin (ROBITUSSIN) 100 mg/5 mL syrup 11-07 00:00:00 2018-11-17 23:59:00 No 200mg Take 10 mLs (2 00 mg total) by mouth every 4 (four) hours as needed for Congestion for up to 10 days. [facility] benzonatate (TESSALON) 100 MG capsule 2018-11-07 00:00 :00 2018-11-14 23:59:00 No 100mg Q.[id number] Take 1 capsule (100 mg total) by mouth 3 (three) times daily for 7 days. [facility] multivitamin (THERAGRAN) tablet 2018-07-10 00:00:00 23:59:00 No 1{tbl} QD Take 1 tablet by mouth daily. [facility] furosemide (LASIX) 10 mg/mL injection 2018-07-10 00:00 :00 2018-11-07 00:00:00 No 20mg Inject 2 mLs (2 0 mg total) intravenously daily as needed (significant edema) Patient with hypotension, on midodrine. Need to watch BPs. [facility] cholecalciferol 2,000 unit Tab 2018-07-10 00:00:00 2018-10-16 00 :00:00 No 2000U QD Take 1 tablet (2,000 Units total) by mouth daily. [facility] pantoprazole (PROTONIX) in D5W (MBP) IVPB 07-10 00:00:00 2018-10-16 00:00:00 No 40mg QD Inject 40 mg intravenously [facility] dextrose 50 % in water (DEXTROSE 50%, D50W,) Syrg injection 2018-07-09 00:00:00 2018-10-16 00:00:00 No 12.5g Inject 25 mLs (12.5 g total) intravenously as needed (blood sugar less than 70 and patient unable to take PO juice or soda). [facility] glucagon, human recombinant, 1 mg/mL SolR injection 2018-07-09 00:00:00 2018-10-16 00:00:00 No 1mg Injec t 1 mL (1 mg total) intramuscularly as needed (blood sugar less than 70, patient unable to take PO, AND unable to give D50W if no IV). [facility] hydrogen peroxide 3 % external solution 00:00:00 2018-10-16 00:00:00 No Apply topically as needed. [facility] insulin lispro (HUMALOG) 100 unit/mL injection 2 00:00:00 2018-10-16 00:00:00 No 0U Inject 0-16 Un its subcutaneously as needed (High blood sugar). [facility] ipratropium-albuterol (DUO-NEB) 0.5 mg-3 mg(2.5 mg base)/3 mL nebulizer solution 2018-07-09 00:00:00 2018-10-16 00:00:00 No 3mL Take 3 mLs by nebulization every 6 (six) hours for 360 days. [facility] insulin glargine (LANTUS SOLOSTAR U-100 INSULIN) 100 unit/mL (3 mL) InPn 2018-07-09 00:00:00 2018-10-16 00:00:00 No 18U QD Inject 18 Units subcutaneously nightly. [facility] melatonin 3 mg Tab tablet 2018-07-09 00:00:00 2018-10-16 00:00:0 0 No 9mg Take 3 tablets (9 mg total) by mouth every night as needed. [facility] Folic Acid 1 Mg Tablet Folic Acid 1 Mg Tablet Yes 1 Daily [facility] Hydrochlorothiazide 25 Mg Tablet Hydrochlorothiazide 25 Mg Tablet Yes 25 Daily [facility] Nifedipine (Nifedipine Er) 30 Mg Tab.er.24 Nifedipine (Nifedipine Er) 30 Mg Tab.er.24 Yes 30 Twice A Day [facility] Trazodone Hcl 50 Mg Tablet Trazodone Hcl 50 Mg Tablet Yes 50 Bedtime [facility] Levofloxacin (Levaquin) 500 Mg Tablet, 500 Mg Oral Lev ofloxacin (Levaquin) 500 Mg Tablet, 500 Mg Oral 2018-05-27 00:00:00 No 500 D aily [facility] Olmesartan Med/Amlodipine/Hctz (Tribenzo r 40-5-12.5 Mg Tablet) 1 Each Tablet, 1 Tab Oral Olmesartan Med/Amlodipine/Hctz (Tribenzo r 40-5-12.5 Mg Tablet) 1 Each Tablet, 1 Tab Oral 2018-05-27 00:00:00 No 1 Daily [facility] Pantoprazole Sodium (Protonix) 40 Mg Tablet., 40 Mg Oral Pantoprazole Sodium (Protonix) 40 Mg Tablet., 40 Mg Oral 2018-05-27 00:00:00 No 40 Daily [facility] Vital Signs Vital Name Observation Time Observation Value Comments Source Systolic blood pressure 2019-05-13 10:59:00 115 mm[Hg] [facility] Diastolic blood pressure 2019-05-13 10:59:00 69 mm[Hg] [facility] Heart rate 2019-05-13 10:59:00 90 /min [facility] Body temperature 2019-05-13 10:59:00 36.94 Dariel [facility] Respiratory rate 2019-05-13 10:59:00 18 /min [facility] Body height 2019-05-13 10:59:00 180.3 cm [facility] Body weight Measured 2019-05-13 10:59:00 86.229 kg [facility] BMI 2019-05-13 10:59:00 26.51 kg/m2 [facility] Oxygen saturation in Arterial blood by Pulse oximetry 05-12 10:59:00 100 /min [facility] Procedure Date / Time Performed Performing Clinician Sour e MR ABDOMEN WITH & WITHOUT IV CONTRAST 2019-05-23 12:08:00 Stribl ing, Erik J. [facility] BASIC METABOLIC PANEL (7) 2019-05-23 09:03:00 Devyn Lantigua [facility] HEPATIC FUNCTION PANEL 2019-05-23 09:03:00 Devyn Lantigua [facility] PROTHROMBIN TIME/INR 2019-05-23 09:03:00 Devyn Lantigua [facility] CBC W/PLT COUNT & AUTO DIFFERENTIAL 2019-05-23 09:03:00 Alfred Lantigua [facility] RHYTHM STRIP - SCAN 2019-05-15 16:11:24 Provider, Default Zita [facility] MISCELLANEOUS LAB ORDER 2019-05-14 09:30:00 Placido Zimmerman [facility] PROTHROMBIN TIME/INR 2019-05-14 09:30:00 Devyn Lantigua [facility] HEPATIC FUNCTION PANEL 2019-05-14 09:30:00 Devyn Lantigua [facility] BASIC METABOLIC PANEL (7) 2019-05-14 09:30:00 Devyn Lantigua [facility] BILIRUBIN, DIRECT 2019-05-14 09:30:00 Devyn Lantigua [facility] CBC W/PLT COUNT & AUTO DIFFERENTIAL 2019-05-14 09:30:00 Alfred Lantigua [facility] REPORT OF PROCEDURE - ENDOSCOPY SCAN 2019-05-13 11:03:24 Pro vider, Default Scanning [facility] RHYTHM STRIP - SCAN 2019-05-12 15:11:01 Provider, Default Scanni loki [facility] REPORT OF PROCEDURE - ENDOSCOPY SCAN 2019-05-12 15:10:56 Pro vider, Default [facility] CARDIAC CATH REPORT - SCAN 2019-05-12 15:10:54 Provider, Default [facility] MAGNESIUM 2019-05-10 05:22:00 Carlos Lyons [facility] PHOSPHORUS 2019-05-10 05:22:00 SerenaCarlos augustin [facility] NM MYOCARDIAL PERFUSION PET/CT (REST & STRESS) 2019-05-09 14:55: 00 Robbie New [facility] TREADMILL TOLERANCE(NON-NUCLEAR TREADMILL) 2019-05-09 14:24: 27 Unknown, Hl7 Doctor [facility] HEMODIALYSIS INPATIENT 2019-05-09 07:47:24 Rosamaria Maldonado [facility] MAGNESIUM 2019-05-09 05:35:[address] [facility] PHOSPHORUS 2019-05-09 05:35:[address] [facility] COMPREHENSIVE METABOLIC PANEL 2019-05-09 05:35:00 Kate Guido [facility] CBC W/PLT COUNT & AUTO DIFFERENTIAL 2019-05-09 05:35:00 Kate Truong [facility] TRANSFUSION SERVICE REPORT - SCAN 2019-05-08 17:52:07 Provid er, Default [facility] LIMITED 2D ECHOCARDIOGRAM 2019-05-08 11:40:31 Robbie New [facility] PROCALCITONIN 2019-05-08 03:02:[address] [facility] MAGNESIUM 2019-05-08 03:02:00 Serena, Carlos [facility] PHOSPHORUS 2019-05-08 03:02:[address] [facility] BASIC METABOLIC PANEL (7) 2019-05-08 03:02:00 Idris Murry ph [facility] CBC W/PLT COUNT & AUTO DIFFERENTIAL 2019-05-08 03:02:00 Indra Munguia [facility] (CELLAVISION MANUAL DIFF) 2019-05-08 03:02:00 Idris Murry ph [facility] HEMODIALYSIS INPATIENT 2019-05-08 00:48:36 Rosamaria Maldonado [facility] PREPARE LEUKO-REDUCED RBC 2019-05-07 23:54:00 Zamzam Correa [facility] PERIPHERAL VASCULAR REPORT - SCAN 2019-05-07 21:12:27 Provid er, Default [facility] PERICARDIOCENTESIS 2019-05-07 20:33:00 [facility] + GRAM STAIN 2019-05-07 19:20:14 Robbie New [facility] CYTOLOGY 2019-05-07 19:20:00 Robbie New [facility] 2D ECHO W/ DOPPLER (CW/PW/COLOR) 2019-05-07 18:32:29 Coreen New [facility] TRANSFUSION SERVICE REPORT - SCAN 2019-05-07 17:52:09 Provid er, Default [facility] COMPREHENSIVE METABOLIC PANEL 2019-05-07 06:42:00 [place] [facility] CBC W/PLT COUNT & AUTO DIFFERENTIAL 2019-05-07 06:42:00 Isacc [facility] (CELLAVISION MANUAL DIFF) 2019-05-07 06:42:00 [facility] PREPARE LEUKO-REDUCED RBC 2019-05-06 23:54:00 Juanpablo Calhoun [facility] TRANSFUSION SERVICE REPORT - SCAN 2019-05-06 18:02:23 Provid er, Default [facility] CAROTID DOPPLER BILATERAL 2019-05-06 16:05:00 Karen Carranza [facility] REPORT OF PROCEDURE - ENDOSCOPY URL 2019-05-06 13:43:19 Zainab Alves [facility] 2D ECHO W/ DOPPLER (CW/PW/COLOR) 2019-05-06 13:06:03 Coreen New [facility] UPPER ENDOSCOPY 2019-05-06 10:00:00 Zainab Alves [facility] COMPREHENSIVE METABOLIC PANEL 2019-05-06 04:52:00 Angelic Lomeli [facility] MAGNESIUM 2019-05-06 04:52:00 Zamzam Correa [facility] CBC W/PLT COUNT & AUTO DIFFERENTIAL 2019-05-06 04:52:00 Kin Lomeli [facility] (CELLAVISION MANUAL DIFF) 2019-05-06 04:52:00 Angelic Lomeli [facility] TRANSFUSE LEUKO-REDUCED RED BLOOD CELLS 2019-05-06 03:24:02 Madeline [facility] CBC W/PLT COUNT & AUTO DIFFERENTIAL 2019-05-05 21:10:00 Ino Correa [facility] BASIC METABOLIC PANEL (7) 2019-05-05 21:09:00 Zamzam Correa [facility] MAGNESIUM 2019-05-05 21:09:00 Madeline [facility] TROPONIN I 2019-05-05 21:09:00 Madeline [facility] ECG 12-LEAD 2019-05-05 20:53:39 Unknown, 7 [facility] ECG 12-LEAD 2019-05-05 20:52:05 Unknown, 7 [facility] ECG 12-LEAD 2019-05-05 19:34:00 Unknown, 7 [facility] ECG 12-LEAD 2019-05-05 19:32:27 Unknown, 7 [facility] TRANSFUSION SERVICE REPORT - SCAN 2019-05-05 17:52:36 Provid er, Default [facility] HEMODIALYSIS INPATIENT 2019-05-05 15:16:18 [facility] HEPATITIS B SURFACE ANTIGEN 2019-05-05 15:02:00 Christopher [facility] OCCULT BLOOD, STOOL 2019-05-05 12:07:00 Angelic Lomeli [facility] COMPREHENSIVE METABOLIC PANEL 2019-05-05 09:51:00 [facility] RETICULOCYTE COUNT 2019-05-05 09:51:00 [facility] BILIRUBIN, DIRECT 2019-05-05 09:51:00 Angelic Lomeli [facility] FERRITIN 2019-05-05 09:51:00 Angelic Lomeli [facility] IRON, TIBC, % SAT. (WITHOUT FERRITIN) 2019-05-05 09:51:00 [facility] DIRECT AHG (LUMA)/DIRECT ANTONIA 2019-05-05 09:51:00 [facility] ABORH, MANUAL 2019-05-05 09:51:00 [facility] CBC W/PLT COUNT & AUTO DIFFERENTIAL 2019-05-05 09:51:00 Kin Lomeli [facility] TRANSFUSE LEUKO-REDUCED RED BLOOD CELLS 2019-05-05 08:35:39 Lj, formerly [facility] TRANSFUSE LEUKO-REDUCED RED BLOOD CELLS 2019-05-05 01:08:39 Lj, formerly [facility] LACTIC ACID, VENOUS 2019-05-05 00:29:00 Lj, formerly [facility] ECG 12-LEAD 2019-05-05 00:27:17 Unknown, Hl7 [facility] TYPE AND SCREEN, AUTOMATED 2019-05-04 20:42:00 Lj, Juanpablo Dalton [facility] URINE CULTURE 2019-05-04 19:53:00 Lj [facility] URINALYSIS W/ REFLEX URINE CULTURE 2019-05-04 19:53:00 Lj, Terrence lew [facility] LEGIONELLA URINE ANTIGEN 2019-05-04 19:53:00 Lj formerly [facility] BLOOD CULTURE 2019-05-04 19:29:00 Lj, [facility] MAGNESIUM 2019-05-04 19:29:00 Lj, [facility] PHOSPHORUS 2019-05-04 19:29:00 Lj [facility] B-TYPE NATRIURETIC FACTOR (BNP) 2019-05-04 19:29:00 [facility] PT/APTT 2019-05-04 19:29:00 Lj [facility] TROPONIN I 2019-05-04 19:29:00 Lj, [facility] COMPREHENSIVE METABOLIC PANEL 2019-05-04 19:29:00 Lj, Juanpablo [facility] LACTIC ACID, VENOUS 2019-05-04 19:29:00 Lj, Juanpablo [facility] PROCALCITONIN 2019-05-04 19:29:00 Lj, Juanpablo [facility] CBC W/PLT COUNT & AUTO DIFFERENTIAL 2019-05-04 19:29:00 Lj, Emigdio spangler [facility] RAPID INFLUENZA A&B SCREEN 2019-05-04 19:28:00 Lj, Juanpablo Dalton [facility] CRITICAL CARE 2019-05-04 18:47:50 Lj, Juanpablo [facility] XR CHEST 1 VIEW PORTABLE/BEDSIDE 2019-05-04 18:05:00 Lj, Anderson camacho [facility] BASIC METABOLIC PANEL (7) 2019-04-07 09:34:00 Devyn [facility] HEPATIC FUNCTION PANEL 2019-04-07 09:34:00 Devyn Lantigua [facility] PROTHROMBIN TIME/INR 2019-04-07 09:34:00 Devyn [facility] CBC W/PLT COUNT & AUTO DIFFERENTIAL 2019-04-07 09:34:00 Alfred [facility] BASIC METABOLIC PANEL (7) 2019-03-14 10:32:00 Devyn [facility] HEPATIC FUNCTION PANEL 2019-03-14 10:32:00 Devyn Lantigua [facility] PROTHROMBIN TIME/INR 2019-03-14 10:32:00 Devyn [facility] CBC W/PLT COUNT & AUTO DIFFERENTIAL 2019-03-14 10:32:00 Alfred [facility] BILIRUBIN, DIRECT 2019-03-04 10:00:00 Devyn [facility] COMPREHENSIVE METABOLIC PANEL 2019-03-04 10:00:00 Devyn [facility] CBC W/PLT COUNT & AUTO DIFFERENTIAL 2019-03-04 10:00:00 Alfred [facility] PROTHROMBIN TIME/INR 2019-03-04 09:55:00 Devyn [facility] BILIRUBIN, DIRECT 2019-02-03 10:13:00 Wilfred Fenton [facility] COMPREHENSIVE METABOLIC PANEL 2019-02-03 10:13:00 Wilfred [facility] PROTHROMBIN TIME/INR 2019-02-03 10:12:00 Wilfred Fenton [facility] CBC W/PLT COUNT & AUTO DIFFERENTIAL 2019-02-03 10:12:00 Wilfred [facility] US PELVIS WITH DOPPLER 2019-02-03 09:35:00 [facility] RHYTHM STRIP - SCAN 2019-01-21 11:42:13 Provider, Default [facility] RHYTHM STRIP - SCAN 2019-01-20 16:02:13 Provider, Default [facility] RHYTHM STRIP - SCAN 2019-01-20 16:02:12 Provider, Default [facility] TRANSFUSION SERVICE REPORT - SCAN 2019-01-19 18:00:57 Provid er, Default [facility] PREPARE LEUKO-REDUCED RBC 2019-01-18 23:55:00 Wilfred Fenton [facility] TRANSFUSION SERVICE REPORT - SCAN 2019-01-18 18:03:07 Provid er, Default [facility] FERRITIN 2019-01-18 17:47:00 [facility], [facility]BC, % SAT. (WITHOUT FERRITIN) 2019-01-18 17:47:00 Leonidas Gutierrez [facility] LACTATE DEHYDROGENASE (LDH) 2019-01-18 17:47:00 [facility] HAPTO[facility]IN 2019-01-18 17:47:00 Leonidas Elaine [facility] VITAMIN B12 AND FOLATE 2019-01-18 17:47:00 [facility]TR[facility] HD CRRT 2019-01-18 15:13:25 Roseanne [facility] HEMOGLOBIN AND HEMATOCRIT 2019-01-18 11:17:00 Ye Pool [facility] CBC (HEMOGRAM ONLY) 2019-01-18 02:51:00 Ye Pool [facility] TRANSFUSE LEUKO-REDUCED RED BLOOD CELLS 2019-01-17 23:33:32 Ye Pool [facility] TRANSFUSE LEUKO-REDUCED RED BLOOD CELLS 2019-01-17 22:39:14 Ye Pool [facility] HEMODIALYSIS INPATIENT 2019-01-17 21:29:31 Garcia [facility] TYPE AND SCREEN, AUTOMATED 2019-01-17 15:35:00 Wilfred [facility] HLA TYPING CI 2019-01-16 15:56:00 [facility] CII 2019-01-16 15:56:00 Rosamaria [facility] FLOW PRA CLASS I WITH REFLEX TO ANTIBODY SPECIFICITY 2018-12 15:56:00 Rosamaria [facility] FLOW PRA CLASS II WITH REFLEX TO ANTIBODY SPECIFICITY 2018-02 15:56:00 Rosamaria [facility] BASIC METABOLIC PANEL (7) 2019-01-16 15:56:00 Carley [facility] HEPATIC FUNCTION PANEL 2019-01-16 15:56:00 Carley Boston [facility] PROTHROMBIN TIME/INR 2019-01-16 15:56:00 Carley [facility] ALPHA FETOPROTEIN (AFP), TUMOR MARKER 2019-01-16 15:56:00 Carley [facility] AB SPECIFICITY CLASS I 2019-01-16 15:56:00 Rosamaria [facility] CBC W/PLT COUNT & AUTO DIFFERENTIAL 2019-01-16 15:56:00 Frederick [facility] RHYTHM STRIP - SCAN 2019-01-08 09:10:11 Provider, Default [facility] TRANSFUSION SERVICE REPORT - SCAN 2019-01-06 17:50:45 Provid er, Default [facility] MISCELLANEOUS LAB ORDER 2019-01-06 06:01:00 Erik De Leon [facility] CBC (HEMOGRAM ONLY) 2019-01-06 06:01:00 Jeny [facility] BASIC METABOLIC PANEL (7) 2019-01-06 06:01:00 Jeny [facility] MAGNESIUM 2019-01-06 06:01:00 [facility] PROTHROMBIN TIME/INR 2019-01-06 06:01:00 Jeny Paredes V. [facility] HEPATIC FUNCTION PANEL 2019-01-06 06:01:00 Rj Paredeseverly Yasmin [facility] PREPARE LEUKO-REDUCED RBC 2019-01-05 23:54:00 Vimal [facility] TRANSFUSION SERVICE REPORT - SCAN 2019-01-05 17:50:34 Provid er, Default [facility] CBC (HEMOGRAM ONLY) 2019-01-05 04:30:00 Jeny [facility] BASIC METABOLIC PANEL (7) 2019-01-05 04:30:00 Jeny [facility] MAGNESIUM 2019-01-05 04:30:00 Jeny [facility] HEPATIC FUNCTION PANEL 2019-01-05 04:30:00 Rj Paredeseverly Yasmin [facility] PROTHROMBIN TIME/INR 2019-01-05 04:30:00 Rj Paredeseverly Yasmin [facility] PREPARE LEUKO-REDUCED RBC 2019-01-04 23:54:00 Pratik [facility]dez [facility] TRANSFUSION SERVICE REPORT - SCAN 2019-01-04 17:53:27 Provid er, Default [facility] DRUG SCREEN, URINE, COMPREHENSIVE 2019-01-04 17:39:00 Laine [facility] DRUG SCREEN, URINE, TRANSPLANT 2019-01-04 17:39:00 Kai [facility] TRANSFUSE LEUKO-REDUCED RED BLOOD CELLS 2019-01-04 14:09:28 Vimal [facility] ETHANOL 2019-01-04 09:42:00 JacquelinKai [facility]auer [facility] BASIC METABOLIC PANEL (7) 2019-01-04 04:07:00 Vimal [facility] HEPATIC FUNCTION PANEL 2019-01-04 04:07:00 Vimal [facility] CBC W/PLT COUNT & AUTO DIFFERENTIAL 2019-01-04 04:07:00 HatVimal serrato [facility] TRANSFUSE LEUKO-REDUCED RED BLOOD CELLS 2019-01-04 01:55:28 Pratik Valdez [facility] TYPE AND SCREEN, AUTOMATED 2019-01-03 21:56:00 Pratik Valdez [facility] BASIC METABOLIC PANEL (7) 2019-01-03 21:54:00 Pratik Valdez [facility] HEPATIC FUNCTION PANEL 2019-01-03 21:54:00 Pratik Valdez [facility] PT/APTT 2019-01-03 21:54:00 Pratik Valdez [facility] CBC W/PLT COUNT & AUTO DIFFERENTIAL 2019-01-03 21:54:00 Kin [facility] REPORT OF PROCEDURE - ENDOSCOPY SCAN 2018-12-31 12:52:49 Pro vider, Default [facility] TRANSFUSION SERVICE REPORT - SCAN 2018-12-27 18:02:58 Provid er, Default [facility] RHYTHM STRIP - SCAN 2018-12-27 16:04:17 Provider, Aye Ahumada [facility] PREPARE LEUKO-REDUCED RBC 2018-12-26 23:54:00 Audie [facility]oyt [facility] TRANSFUSION SERVICE REPORT - SCAN 2018-12-26 18:02:50 Provid er, Default [facility] VANCOMYCIN LEVEL, RANDOM 2018-12-26 03:56:00 Maurice [facility] BASIC METABOLIC PANEL (7) 2018-12-26 03:56:00 [facility] MAGNESIUM 2018-12-26 03:56:00 [facility] PHOSPHORUS 2018-12-26 03:56:[address] [place] HAPTOGLOBIN 2018-12-26 03:56:00 Audie [facility]oyt [facility] HEPATIC FUNCTION PANEL 2018-12-26 03:56:00 Kai Roper [facility] CBC W/PLT COUNT & AUTO DIFFERENTIAL 2018-12-26 03:56:00 Syedal bouchra [facility] PERIPHERAL VASCULAR REPORT - SCAN 2018-12-25 21:23:01 Provid er, Default [facility] TRANSFUSE LEUKO-REDUCED RED BLOOD CELLS 2018-12-25 11:12:26 Audie [facility] TYPE AND SCREEN, AUTOMATED 2018-12-25 08:51:00 Audie Hoyt [facility] BLOOD CULTURE 2018-12-25 08:25:00 Sydney Vasquez [facility] BASIC METABOLIC PANEL (7) 2018-12-25 03:46:00 [facility] MAGNESIUM 2018-12-25 03:46:00 [facility] PHOSPHORUS 2018-12-25 03:46:[address] [place] HEPATIC FUNCTION PANEL 2018-12-25 03:46:00 Placido [facility] PROTHROMBIN TIME/INR 2018-12-25 03:46:00 Placido [facility] LACTATE DEHYDROGENASE (LDH) 2018-12-25 03:46:00 Kai [facility] CBC W/PLT COUNT & AUTO DIFFERENTIAL 2018-12-25 03:46:00 Anahicarekenisha shook [facility] VENOUS DOPPLER LEGS BILATERAL 2018-12-24 18:55:00 Evelina, Roy [facility] TRANSFUSION SERVICE REPORT - SCAN 2018-12-24 18:02:36 Provid er, Default [facility] BASIC METABOLIC PANEL (7) 2018-12-24 03:18:00 Ciccarellrafaela [facility] MAGNESIUM 2018-12-24 03:18:00 Ciccarellrafaela [facility] PHOSPHORUS 2018-12-24 03:18:00 Ciccarellrafaela [facility] CBC W/PLT COUNT & AUTO DIFFERENTIAL 2018-12-24 03:18:00 Ciccarel bouchra [facility] PREPARE LEUKO-REDUCED RBC 2018-12-23 23:54:00 Omero Moura [facility] HEMODIALYSIS INPATIENT 2018-12-23 23:25:30 Adri Soler [facility] CBC (HEMOGRAM ONLY) 2018-12-23 20:04:00 Maurice [facility] TRANSFUSION SERVICE REPORT - SCAN 2018-12-23 18:01:02 Provid er, Default [facility] BASIC METABOLIC PANEL (7) 2018-12-23 04:01:00 Ciccarefabiano [facility] MAGNESIUM 2018-12-23 04:01:00 Ciccarebrennan [facility] PHOSPHORUS 2018-12-23 04:01:00 [facility] VANCOMYCIN LEVEL, RANDOM 2018-12-23 04:01:00 Ian Shmuelsorin [facility] HEPATITIS B SURFACE ANTIGEN 2018-12-23 04:01:00 Adri [facility] CBC W/PLT COUNT & AUTO DIFFERENTIAL 2018-12-23 04:01:00 Ciccarel lo, [facility] PREPARE LEUKO-REDUCED RBC 2018-12-22 23:54:00 Víctro [facility] CT LOWER EXTREMITY WITHOUT IV CONTRAST RIGHT 2018-12-22 21:0 4:00 Omero Moura [facility] TRANSFUSION SERVICE REPORT - SCAN 2018-12-22 18:01:22 Provid er, Default [facility] VANCOMYCIN LEVEL, TROUGH 2018-12-22 16:26:00 Ian, Shmuel [facility] CBC (HEMOGRAM ONLY) 2018-12-22 16:26:00 Christy [facility] TRANSFUSE LEUKO-REDUCED RED BLOOD CELLS 2018-12-22 11:21:40 Omero [facility] XR CHEST 1 VIEW PORTABLE/BEDSIDE 2018-12-22 05:29:00 [facility] BASIC METABOLIC PANEL (7) 2018-12-22 03:56:00 Gian [facility] MAGNESIUM 2018-12-22 03:56:00 Gian [facility] PHOSPHORUS 2018-12-22 [facility]:56[facility]EN[facility] 2018-12-22 03:56:[address] [place] CBC W/PLT COUNT & AUTO DIFFERENTIAL 2018-12-22 03:56:00 Sharad shook [facility] FIBRINOGEN 2018-12-22 03:55:00 Shmuel Sosa [facility] HEMOGLOBIN AND HEMATOCRIT 2018-12-21 08:29:00 Gian [facility] TRANSFUSE LEUKO-REDUCED RED BLOOD CELLS 2018-12-21 07:30:55 Víctor [facility] POCT-LACTIC ACID, VENOUS 2018-12-21 04:01:00 Víctor [facility]reen [facility] BLOOD CULTURE 2018-12-21 03:04:00 Víctor [facility] AMMONIA 2018-12-21 02:48:00 [place] V[facility]ctor [facility] PROCALCITONIN 2018-12-21 02:48:00 [place] [facility] POCT-LACTIC ACID, VENOUS 2018-12-21 02:01:00 JuliaVíctor Ma [facility] BLOOD CULTURE 2018-12-21 01:54:00 [place] [facility] COMPREHENSIVE METABOLIC PANEL 2018-12-21 01:53:00 [facility] TROPONIN I 2018-12-21 01:53:00 [place] [facility] PT/APTT 2018-12-21 01:53:00 [place] [facility] MAGNESIUM 2018-12-21 01:53:00 [facility] TYPE AND SCREEN, AUTOMATED 2018-12-21 01:53:00 [place] Víctor [facility] CBC W/PLT COUNT & AUTO DIFFERENTIAL 2018-12-21 01:53:00 [place] [facility] XR CHEST 1 VIEW PORTABLE/BEDSIDE 2018-12-21 01:39:00 Kenisha Breen [facility] XR KNEE RIGHT COMPLETE (4 VIEWS) 2018-12-21 01:39:00 Kenisha Breen [facility] ECG 12-LEAD 2018-12-21 01:18:37 Unknown, Hl7 [facility] CRITICAL CARE 2018-12-21 01:10:14 [place] [facility] RHYTHM STRIP - SCAN 2018-11-19 09:00:16 Provider, Default Scanni [facility] TRANSFUSION SERVICE REPORT - SCAN 2018-11-15 17:52:49 Provid er, Default [facility] CBC W/PLT COUNT & AUTO DIFFERENTIAL 2018-11-15 11:16:00 Panchito Hicks [facility] (MANUAL DIFFERENTIAL) 2018-11-15 11:16:00 Panchito Hicks [facility] HEPATIC FUNCTION PANEL 2018-11-15 04:40:00 Maru [facility] PROTHROMBIN TIME/INR 2018-11-15 04:40:00 Dariela [facility] BASIC METABOLIC PANEL (7) 2018-11-15 04:40:00 Al Stephens [facility] PHOSPHORUS 2018-11-15 04:40:00 Karen Dorantes [facility] CBC W/PLT COUNT & AUTO DIFFERENTIAL 2018-11-15 04:40:00 [facility] PREPARE LEUKO-REDUCED RBC 2018-11-14 23:54:00 Panchito Hicks [facility] TRANSFUSION SERVICE REPORT - SCAN 2018-11-14 18:03:46 Provid er, Default [facility] IR TUNNELED DIALYSIS CATHETER 2018-11-14 12:38:00 Marlys Dorantes [facility] HEPATIC FUNCTION PANEL 2018-11-14 05:10:00 [facility]u [facility] PROTHROMBIN TIME/INR 2018-11-14 05:10:00 Dariela Pearson [facility] BASIC METABOLIC PANEL (7) 2018-11-14 05:10:00 Al Stephens [facility] CBC W/PLT COUNT & AUTO DIFFERENTIAL 2018-11-14 05:10:00 David Okeefe [facility] TRANSFUSE LEUKO-REDUCED RED BLOOD CELLS 2018-11-13 12:08:04 Panchito Aren[facility] TYPE AND SCREEN, AUTOMATED 2018-11-13 08:34:00 Panchito Hicks [facility] HEMOGLOBIN AND HEMATOCRIT 2018-11-13 07:51:00 Panchito Hicks [facility] HEPATIC FUNCTION PANEL 2018-11-13 05:25:00 Maru [facility] PROTHROMBIN TIME/INR 2018-11-13 05:25:00 Dariela [facility] BASIC METABOLIC PANEL (7) 2018-11-13 05:25:00 Al Stephens [facility] PHOSPHORUS 2018-11-13 05:25:00 Karen Dorantes [facility] CBC W/PLT COUNT & AUTO DIFFERENTIAL 2018-11-13 05:25:00 David Okeefe [facility] XR CHEST 2 VIEWS 2018-11-12 21:38:00 Afua Nguyen [facility] HEPATIC FUNCTION PANEL 2018-11-12 03:36:00 Maru Pearson [facility] PROTHROMBIN TIME/INR 2018-11-12 03:36:00 Dariela Pearson [facility] BASIC METABOLIC PANEL (7) 2018-11-12 03:36:00 Kat Al [facility] CBC W/PLT COUNT & AUTO DIFFERENTIAL 2018-11-12 03:36:00 David Okeefe [facility] PROTEIN, RANDOM URINE 2018-11-12 01:55:00 Karen Dorantes [facility] CREATININE, RANDOM URINE 2018-11-12 01:55:00 Karen Dorantes [facility] HEPATIC FUNCTION PANEL 2018-11-11 03:46:00 Maru [facility] PROTHROMBIN TIME/INR 2018-11-11 03:46:00 Dariela [facility] BASIC METABOLIC PANEL (7) 2018-11-11 03:46:00 Kat Al [facility] CBC W/PLT COUNT & AUTO DIFFERENTIAL 2018-11-11 03:46:00 David Okeefea [facility] (CELLAVISION MANUAL DIFF) 2018-11-11 03:46:00 Yenifer Okeefe a [facility] TRANSFUSION SERVICE REPORT - SCAN 2018-11-10 18:01:07 Provid er, Default [facility] REPORT OF PROCEDURE - ENDOSCOPY URL 2018-11-10 14:04:49 Alfred [facility] TISSUE EXAM 2018-11-10 13:25:00 Devyn Lantigua [facility] COLONOSCOPY,BIOPSY 2018-11-10 13:00:00 Devyn Lantigua [facility] HEPATIC FUNCTION PANEL 2018-11-10 04:30:00 Maru [facility] PROTHROMBIN TIME/INR 2018-11-10 04:30:00 Dariela [facility] BASIC METABOLIC PANEL (7) 2018-11-10 04:30:00 Al Stephens [facility] CBC W/PLT COUNT & AUTO DIFFERENTIAL 2018-11-10 04:30:00 David Okeefe [facility] PREPARE LEUKO-REDUCED RBC 2018-11-09 23:54:00 Jeny [facility] URINALYSIS W/ REFLEX URINE CULTURE 2018-11-09 23:07:00 [facility] BLOOD CULTURE 2018-11-09 18:26:00 [facility] TRANSFUSION SERVICE REPORT - SCAN 2018-11-09 18:02:25 Provid er, Default [facility] HEMODIALYSIS INPATIENT 2018-11-09 16:56:01 Matty Edmonds [facility] HEMODIALYSIS INPATIENT 2018-11-09 15:25:00 Karen Dorantes [facility] HEPATIC FUNCTION PANEL 2018-11-09 03:43:00 Maru [facility] PROTHROMBIN TIME/INR 2018-11-09 03:43:00 Dariela [facility] BASIC METABOLIC PANEL (7) 2018-11-09 03:43:00 Al Stephens [facility] PHOSPHORUS 2018-11-09 03:43:00 Karen Dorantes [facility] CBC W/PLT COUNT & AUTO DIFFERENTIAL 2018-11-09 03:43:00 David [facility]fe [facility] TRANSFUSE LEUKO-REDUCED RED BLOOD CELLS 2018-11-08 18:16:10 Jeny [facility] TRANSFUSE LEUKO-REDUCED RED BLOOD CELLS 2018-11-08 15:03:23 Jeny [facility] MISCELLANEOUS LAB ORDER 2018-11-08 14:39:00 Devyn Lantigua [facility] TYPE AND SCREEN, AUTOMATED 2018-11-08 09:26:00 [facility] HEPATIC FUNCTION PANEL 2018-11-08 04:21:00 Maru [facility] BASIC METABOLIC PANEL (7) 2018-11-08 04:21:00 Al Stephens [facility] MAGNESIUM 2018-11-08 04:21:00 Kendal [facility] PHOSPHORUS 2018-11-08 04:21:00 Kendal [facility] YARI ANTIGEN WITH REFLEX TO TITER 2018-11-08 04:20:00 Devyn [facility] PROTHROMBIN TIME/INR 2018-11-08 04:20:00 Dariela Pearson [facility] YARI ANTIGEN TITER 2018-11-08 04:20:00 Devyn Lantigua [facility] CBC W/PLT COUNT & AUTO DIFFERENTIAL 2018-11-08 04:20:00 David [facility]keefe [facility] CHEST WITH HIGH RESOLUTION/ILD 2018-11-08 00:16:00 Lizz [facility] MR ABDOMEN WITH & WITHOUT IV CONTRAST 2018-11-07 18:45:00 Devyn Lantigua [facility] HEPATIC FUNCTION PANEL 2018-11-07 05:24:00 Michel [facility] PROTHROMBIN TIME/INR 2018-11-07 05:24:00 Dariela Pearson [facility] BASIC METABOLIC PANEL (7) 2018-11-07 05:24:00 [facility] CBC W/PLT COUNT & AUTO DIFFERENTIAL 2018-11-07 05:24:00 Sary, David holt [facility] (CELLAVISION MANUAL DIFF) 2018-11-07 05:24:00 SaryYenifer a [facility] HEPATIC FUNCTION PANEL 2018-11-06 03:32:00 Maru Pearson [facility] PROTHROMBIN TIME/INR 2018-11-06 03:32:00 Dariela Pearson [facility] BASIC METABOLIC PANEL (7) 2018-11-06 03:32:00 Bat [facility] CBC W/PLT COUNT & AUTO DIFFERENTIAL 2018-11-06 03:32:00 Sary, David yssa Hy[facility] (CELLAVISION MANUAL DIFF) 2018-11-06 03:32:00 SaryYenifer gracia a [facility] URINE CULTURE 2018-11-05 20:47:00 [facility] W/ MICROSCOPIC 2018-11-05 20:47:00 Jeny [facility] XR CHEST 1 VIEW PORTABLE/BEDSIDE 2018-11-05 20:02:00 Mila Hicks [facility] HEPATITIS B SURFACE ANTIGEN 2018-11-05 15:32:00 Alber Edmondshish [facility] HEPATITIS B SURFACE ANTIBODY 2018-11-05 15:32:[address] [facility] HEPATITIS B CORE ANTIBODY, TOTAL 2018-11-05 15:32:00 Alber Edmonds [facility] IR NON-TUNNELED DIALYSIS CATHETER INSERTION 2018-11-05 12:10 :00 Kendal, [facility] PT/APTT 2018-11-05 05:07:00 Kendal, [facility] HEPATIC FUNCTION PANEL 2018-11-05 05:07:00 Maru [facility] PROTHROMBIN TIME/INR 2018-11-05 05:07:00 Dariela Pearson [facility] BASIC METABOLIC PANEL (7) 2018-11-05 05:07:00 Al Stephens [facility] MAGNESIUM 2018-11-05 05:07:00 Kendal [facility] PHOSPHORUS 2018-11-05 05:07:00 [facility]al [facility] [facility] CBC W/PLT COUNT & AUTO DIFFERENTIAL 2018-11-05 05:07:00 [facility] (CELLAVISION MANUAL DIFF) 2018-11-05 05:07:00 [facility] BLOOD CULTURE 2018-11-04 19:53:00 [facility] URINALYSIS W/ REFLEX URINE CULTURE 2018-11-04 19:52:00 [facility] AMMONIA 2018-11-04 12:42:00 [facility]y [facility] HEPATIC FUNCTION PANEL 2018-11-04 03:47:00 [facility] PROTHROMBIN TIME/INR 2018-11-04 03:47:00 Dariela [facility] BASIC METABOLIC PANEL (7) 2018-11-04 03:47:00 Al Stephens [facility] MAGNESIUM 2018-11-04 03:47:00 Jeny [facility] CBC W/PLT COUNT & AUTO DIFFERENTIAL 2018-11-04 03:46:00 [facility] (CELLAVISION MANUAL DIFF) 2018-11-04 03:46:00 [facility] HEPATIC FUNCTION PANEL 2018-11-03 04:00:00 Maru [facility] PROTHROMBIN TIME/INR 2018-11-03 04:00:00 Dariela [facility] BASIC METABOLIC PANEL (7) 2018-11-03 04:00:00 Kat Al [facility] CBC W/PLT COUNT & AUTO DIFFERENTIAL 2018-11-03 04:00:00 [facility] HEPATIC FUNCTION PANEL 2018-11-02 05:22:00 Maru [facility] PROTHROMBIN TIME/INR 2018-11-02 05:22:00 Dariela [facility] BASIC METABOLIC PANEL (7) 2018-11-02 05:22:00 Kat Al [facility] CBC W/PLT COUNT & AUTO DIFFERENTIAL 2018-11-02 05:22:00 [facility] HEPATIC FUNCTION PANEL 2018-11-01 05:24:00 Maru [facility] PROTHROMBIN TIME/INR 2018-11-01 05:24:00 Dariela [facility] BASIC METABOLIC PANEL (7) 2018-11-01 05:24:00 Kat Al [facility] CBC W/PLT COUNT & AUTO DIFFERENTIAL 2018-11-01 05:24:00 [facility] HEPATIC FUNCTION PANEL 2018-10-31 04:19:00 Maru [facility] PROTHROMBIN TIME/INR 2018-10-31 04:19:00 Dariela [facility] BASIC METABOLIC PANEL (7) 2018-10-31 04:19:00 Al Stephens [facility] CBC W/PLT COUNT & AUTO DIFFERENTIAL 2018-10-31 04:19:00 [facility] SODIUM, RANDOM URINE 2018-10-30 20:42:00 [facility] HEPATIC FUNCTION PANEL 2018-10-30 03:27:00 Maru [facility] PROTHROMBIN TIME/INR 2018-10-30 03:27:00 Dariela [facility] BASIC METABOLIC PANEL (7) 2018-10-30 03:27:00 Kat Al [facility] CBC W/PLT COUNT & AUTO DIFFERENTIAL 2018-10-30 03:27:00 [facility] HEPATIC FUNCTION PANEL 2018-10-29 04:12:00 [facility]INR 2018-10-29 04:12:00 Dariela [facility] BASIC METABOLIC PANEL (7) 2018-10-29 04:12:00 Laney Pearson [facility] CBC W/PLT COUNT & AUTO DIFFERENTIAL 2018-10-29 04:12:00 [facility] (CELLAVISION MANUAL DIFF) 2018-10-29 04:12:00 Yenifer [facility] HEPATIC FUNCTION PANEL 2018-10-28 03:26:00 Maru [facility] PROTHROMBIN TIME/INR 2018-10-28 03:26:00 Dariela [facility] BASIC METABOLIC PANEL (7) 2018-10-28 03:26:00 Laney [facility] CBC W/PLT COUNT & AUTO DIFFERENTIAL 2018-10-28 03:26:00 [facility] US PARACENTESIS 2018-10-27 15:07:00 Bruce [facility] BODY FLUID CELL COUNT WITH DIFFERENTIAL 2018-10-27 15:00:00 Juanpablo laney [facility] BODY FLUID CULTURE + GRAM STAIN 2018-10-27 15:00:00 Enriquebenigno Desmendoza [facility] BLOOD CULTURE 2018-10-27 13:19:00 Bruce [facility] LACTIC ACID, VENOUS 2018-10-27 13:13:00 NeasonPanchito [facility] BLOOD CULTURE 2018-10-27 13:12:00 Bruce [facility] HEPATIC FUNCTION PANEL 2018-10-27 03:57:00 Maru [facility] PROTHROMBIN TIME/INR 2018-10-27 03:57:00 Dariela [facility] BASIC METABOLIC PANEL (7) 2018-10-27 03:57:00 [facility] & AUTO DIFFERENTIAL 2018-10-27 03:57:00 [facility] US ABDOMEN LIMITED 2018-10-26 04:21:00 Mati [facility] HEPATIC FUNCTION PANEL 2018-10-26 03:50:00 Maru [facility] PROTHROMBIN TIME/INR 2018-10-26 03:50:00 Dariela [facility] BASIC METABOLIC PANEL (7) 2018-10-26 03:50:00 [facility] CBC W/PLT COUNT & AUTO DIFFERENTIAL 2018-10-26 03:50:00 [facility] 2018-10-25 04:01:00 Maru [facility] PROTHROMBIN TIME/INR 2018-10-25 04:01:00 Dariela [facility] BASIC METABOLIC PANEL (7) 2018-10-25 04:01:00 Laney Pearson [facility] CBC W/PLT COUNT & AUTO DIFFERENTIAL 2018-10-25 04:01:00 [facility] BASIC METABOLIC PANEL (7) 2018-10-24 04:36:00 Laney [facility] HEPATIC FUNCTION PANEL 2018-10-24 04:36:00 Maru [facility] PROTHROMBIN TIME/INR 2018-10-24 04:36:00 Dariela [facility] MAGNESIUM 2018-10-24 04:36:00 Neibis Panchito [facility] PHOSPHORUS 2018-10-24 04:36:00 Neibis [facility] CBC W/PLT COUNT & AUTO DIFFERENTIAL 2018-10-24 04:36:00 [facility] MISCELLANEOUS LAB ORDER 2018-10-23 18:25:00 Junaid [facility] HEPATIC FUNCTION PANEL 2018-10-23 03:54:00 [facility] PROTHROMBIN TIME/INR 2018-10-23 03:54:00 Dariela [facility] MAGNESIUM 2018-10-23 03:54:00 NePanchito [facility] PHOSPHORUS 2018-10-23 03:54:00 Neibis Panchito [facility] BASIC METABOLIC PANEL (7) 2018-10-23 03:54:00 Al Stephens [facility] CBC W/PLT COUNT & AUTO DIFFERENTIAL 2018-10-23 03:54:00 [facility] URINALYSIS W/ REFLEX URINE CULTURE 2018-10-22 16:48:00 Maryellen [facility] BLOOD CULTURE 2018-10-22 15:01:00 Maryellen [facility] HEPATIC FUNCTION PANEL 2018-10-22 04:20:00 [facility] PROTHROMBIN TIME/INR 2018-10-22 04:20:00 Dariela [facility] BASIC METABOLIC PANEL (7) 2018-10-22 04:20:00 Kat Al [facility] CBC W/PLT COUNT & AUTO DIFFERENTIAL 2018-10-22 04:20:00 [facility] (CELLAVISION MANUAL DIFF) 2018-10-22 04:20:00 Yenifer [facility] HEPATIC FUNCTION PANEL 2018-10-21 05:01:00 [facility] PROTHROMBIN [facility]/INR 2018-10-21 05:01:00 Dariela [facility] RETICULOCYTE COUNT 2018-10-21 05:01:00 Mati [facility] HAPTOGLOBIN 2018-10-21 05:01:00 [facility] PERIPHERAL BLOOD SMEAR - PATHOLOGIST REVIEW 2018-10-21 05:01 :00 Maryellen [facility] VITAMIN B12 AND FOLATE 2018-10-21 05:01:00 Yenifer Okeefe [facility] BASIC METABOLIC PANEL (7) 2018-10-21 05:01:00 Al Stephens [facility] CBC W/PLT COUNT & AUTO DIFFERENTIAL 2018-10-21 05:01:00 [facility] (CELLAVISION MANUAL DIFF) 2018-10-21 05:01:00 [facility]ifer [facility] 2D ECHO W/ DOPPLER (CW/PW/COLOR) 2018-10-20 13:30:32 Kendrick [facility] HEPATIC FUNCTION PANEL 2018-10-20 06:22:00 Maru [facility] PROTHROMBIN TIME/INR 2018-10-20 06:22:00 Dariela [facility] MAGNESIUM 2018-10-20 06:22:00 Panchito [facility] PHOSPHORUS 2018-10-20 06:22:00 [facility] BASIC METABOLIC PANEL (7) 2018-10-20 06:22:00 Yenifer [facility] LACTATE DEHYDROGENASE (LDH) 2018-10-20 06:22:00 Ra romario [facility] CBC W/PLT COUNT & AUTO DIFFERENTIAL 2018-10-20 06:22:00 [facility] CBC W/PLT COUNT & AUTO DIFFERENTIAL 2018-10-19 21:55:00 [facility] TRANSFUSION SERVICE REPORT - SCAN 2018-10-19 17:52:12 Provid er, Default Scanning [facility] CBC W/PLT COUNT & AUTO DIFFERENTIAL 2018-10-19 15:48:00 [facility] REPORT OF PROCEDURE - ENDOSCOPY URL 2018-10-19 11:05:57 Moriah Parisi [facility] [place] REPORT OF PROCEDURE - ENDOSCOPY URL 2018-10-19 09:17:18 Moriah Parisi [facility] TISSUE EXAM 2018-10-19 08:56:00 [facility] COLONOSCOPY,BIOPSY 2018-10-19 08:00:00 Isak [facility] UPPER ENDOSCOPY 2018-10-19 08:00:00 [facility] COLONOSCOPY,POLYPECTOMY 2018-10-19 08:00:00 Is[facility] PROTHROMBIN TIME/INR 2018-10-19 03:52:00 Dariela [facility] BASIC METABOLIC PANEL (7) 2018-10-19 03:50:00 Eric Lei [facility] HEPATIC FUNCTION PANEL 2018-10-19 03:50:00 Maru [facility] MAGNESIUM 2018-10-19 03:50:00 Neibis [facility] PHOSPHORUS 2018-10-19 03:50:00 Neibis [facility] CBC W/PLT COUNT & AUTO DIFFERENTIAL 2018-10-19 03:50:00 [facility] (CELLAVISION MANUAL DIFF) 2018-10-19 03:50:00 [facility] PREPARE LEUKO-REDUCED RBC 2018-10-18 23:54:00 Keshav uMrray [facility] CBC W/PLT COUNT & AUTO DIFFERENTIAL 2018-10-18 19:17:00 Kurt [facility] (CELLAVISION MANUAL DIFF) 2018-10-18 19:17:00 [facility] SODIUM, RANDOM URINE 2018-10-18 18:43:00 [facility] CREATININE, RANDOM URINE 2018-10-18 18:43:00 [facility] UREA NITROGEN, RANDOM URINE 2018-10-18 18:43:00 [facility] TRANSFUSION SERVICE REPORT - SCAN 2018-10-18 17:52:19 Provid er, Default Scanning [facility] CBC W/PLT COUNT & AUTO DIFFERENTIAL 2018-10-18 12:33:00 Kurt [facility] (CELLAVISION MANUAL DIFF) 2018-10-18 12:33:00 Kurt [facility] LACTIC ACID, VENOUS 2018-10-18 06:49:00 [facility] BASIC METABOLIC PANEL (7) 2018-10-18 04:55:00 Ochoagarrett Eric Randall [facility] HEPATIC FUNCTION PANEL 2018-10-18 04:55:00 Maru [facility] PROTHROMBIN TIME/INR 2018-10-18 04:55:00 Dariela [facility] CBC W/PLT COUNT & AUTO DIFFERENTIAL 2018-10-18 04:55:00 Pablo [facility] (CELLAVISION MANUAL DIFF) 2018-10-18 04:55:00 Keshav Murray [facility] [place] W/PLT COUNT & AUTO DIFFERENTIAL 2018-10-17 20:59:00 Pablo [facility] (CELLAVISION MANUAL DIFF) 2018-10-17 20:59:00 Keshav Murray [facility] URINALYSIS W/ REFLEX URINE CULTURE 2018-10-17 17:55:00 Brandon Murray [facility] BASIC METABOLIC PANEL (7) 2018-10-17 17:55:00 [facility]TE 2018-10-17 17:12:00 Tavon [facility] US DOPPLER 2018-10-17 17:12:00 Mandeep Taylor [facility] DRUG SCREEN, URINE, COMPREHENSIVE 2018-10-17 15:48:00 Maryellen [facility] BLOOD CULTURE 2018-10-17 15:39:00 Keshav Murray [facility] MISCELLANEOUS LAB ORDER 2018-10-17 15:01:00 Junaid [facility] LACTIC ACID, VENOUS 2018-10-17 15:01:00 Keshav Murray [facility] PROCALCITONIN 2018-10-17 15:01:00 Keshav Murray [facility] ETHANOL 2018-10-17 15:01:00 Maryellen [facility] CBC W/PLT COUNT & AUTO DIFFERENTIAL 2018-10-17 15:01:00 Ant Lei [facility] BLOOD CULTURE 2018-10-17 15:00:00 Trevor [facility] TRANSFUSE LEUKO-REDUCED RED BLOOD CELLS 2018-10-17 13:42:37 Keshav Murray [facility] BASIC METABOLIC PANEL (7) 2018-10-17 06:25:00 Eric Lei [facility] HEPATIC FUNCTION PANEL 2018-10-17 06:25:00 Maru [facility] MAGNESIUM 2018-10-17 06:25:00 Keshav Murray [facility] CBC W/PLT COUNT & AUTO DIFFERENTIAL 2018-10-17 06:25:00 Ant Lei [facility] (CELLAVISION MANUAL DIFF) 2018-10-17 06:25:00 Eric Lei [facility] TRANSFUSE LEUKO-REDUCED RED BLOOD CELLS 2018-10-17 05:27:28 Gabriel [facility] ECG 12-LEAD 2018-10-17 03:56:53 Eric Lei [facility] TYPE AND SCREEN, AUTOMATED 2018-10-17 00:38:00 Eric Lei [facility] URINALYSIS W/ REFLEX URINE CULTURE 2018-10-17 00:37:00 Melissa Lei [facility] COMPREHENSIVE METABOLIC PANEL 2018-10-16 23:29:00 Eric Lei [facility] BILIRUBIN, DIRECT 2018-10-16 23:29:00 Eric Lei [facility] PROTHROMBIN TIME/INR 2018-10-16 23:29:00 Eric Lei [facility] MAGNESIUM 2018-10-16 23:29:00 Eric Lei [facility] CREATINE KINASE (CK) 2018-10-16 23:29:00 Eric Lei [facility] CBC W/PLT COUNT & AUTO DIFFERENTIAL 2018-10-16 23:29:00 Ant Lei [facility] XR CHEST 1 VIEW PORTABLE/BEDSIDE 2018-10-16 22:10:00 Eric Lei [facility] Computed tomography of abdomen and pelvis with contrast 2018 00:00:00 MARYLU DUQUE [facility] Computed tomography of chest with contrast 2018-05-31 00:00: 00 DAVID HORTON [facility] Ultrasound guidance for vascular access 2018-05-30 00:00:00 MANDEEP HEWITT [facility] INSERTION OF ENDOTRACHEAL AIRWAY INTO TRACHEA, VIA OPENING 2 00:00:00 GILLETTE [facility] RESPIRATORY VENTILATION, 24-96 CONSECUTIVE HOURS 2018-05-30 00:00:00 GILLETTEMARITZA [facility] INSERTION OF INFUSION DEVICE INTO R [facility], PERC APPROACH 20 15-06-03 00:00:00 KANDI ANAND [facility] ASSISTANCE WITH RESPIRATORY VENTILATION, <24 HRS, CPAP 05-29 00:00:00 KIET DUMAS [facility] X-ray of chest, two views 2018-05-28 00:00:00 ANAYA BUSTAMANTE [facility] Computed tomography of chest without contrast 2018-05-28 00: 00:00 MANDEEP MARIE [facility] X-ray of chest, two views 2018-05-27 00:00:00 ANAYA BUSTAMANTE [facility] Computed tomography of abdomen and pelvis with contrast 2018 00:00:00 ANAYA BUSTAMANTE [facility] US Gallbladder 2018-05-27 00:00:00 [facility] Plan of Care Planned Activity Planned Date Details Comments Source Future Scheduled Test 2021-06-18 00:00:00 Lipid panel (proce dure) [code = 62847813[facility] 2019-11-27 00:00:00 IMM Influenza Seas onal Nov to April (>/= 19 yrs) [code = IMM Influenza Seasonal Nov to April (>/= 19 yrs)] [facility] Scheduled Test 2019-10-28 00:00:00 INFLUENZA VACCINE (#1) [code = INFLUENZA VACCINE (#1)] [facility] Future Scheduled Test 1984 00:00:00 PNEUMOCOCCAL VACCI NE 2-64 YEARS AT RISK (1 of 3 - PCV13) [code = PNEUMOCOCCAL VACCINE 2-64 YEARS AT RISK (1 of 3 - PCV13)] [facility] Encounters Start Date/Time End Date/Time Encounter Type Admission Type Attendi [facility] Care Department Encounter ID Source 2018-01-28 08:27:07 Inpatient [facility] [id number] [facility] 2018-01-28 01:10:06 Inpatient [facility] [id number] [facility] 2018-01-27 00:00:00 Inpatient [facility] [id number] [facility] 2018-01-25 00:00:00 Inpatient [facility] [id number] [facility] 2019-01-09 00:00:00 2019-01-09 00:00:00 Outpatient [facility] [id number] [facility] 2018-10-16 12:41:00 2018-10-16 12:41:00 Registered Emergency Room 1 MARYLU DUQUE [facility] [id number] [facility] 2018-09-05 00:00:00 2018-09-05 00:00:00 Outpatient [facility] [id number] [facility] 2018-06-19 00:00:00 2018-06-19 00:00:00 Outpatient [facility] [id number] [facility] 2018-05-27 18:25:00 2018-06-01 07:30:00 Discharged Inpatient 1 KIET DUMAS [facility] [id number] [facility] 2018-01-30 00:00:00 2018-01-30 00:00:00 Outpatient [facility] [id number] [facility] 2018-01-29 00:00:00 2018-01-29 00:00:00 Outpatient [facility] [id number] [facility] 2018-01-24 21:17:42 2018-01-24 21:17:42 Emergency [facility] [id number] [facility] 2018-01-24 20:24:34 2018-01-24 20:24:34 Emergency [facility] [id number] [facility] 2018-01-24 17:21:24 2018-01-24 17:21:24 Inpatient [facility] [id number] [facility] Results Test Description Test Time Test Comments Results Result Comments Source US ABDOMEN COMPLETE 2019-09-26 20:45:00 [place] [address] Patient Name: INDRA GALVAN JR MR #: [id number] : 1980 Age/Sex: 38/M Req #: [id number] Adm Physician: KHLOE BOX MD Ordered by: KERVIN FRYE, VIRGILIO FRYE Report #: [id number] Location: MED/SURG Room/Bed: [facility] Procedure: [id number] US/US ABDOMEN COMPLETE Exam Date: 09/26/19 Exam [...] CATERINA on 09/26/192051 COPY TO: [facility] S[facility] (PORTABLE) 2019-09-26 11:24:00 [place] [address] Patient Name: INDRA GALVAN JR MR #: [id number] : 1980 Age/Sex: 38/M Req #: [id number] Adm Physician: Ordered by: MARYLU KELSEY DO Report #: [id number] Location: ER Room/Bed: Procedure: [id number] DX/CHEST SINGLE (PORTABLE) Exam Date: 09/26/19 Exam [...] MDReport Verified Date/Time: 05/23/2019 12:54:18 Reading Location: [facility] B1 C013X Ortho Consult Reading Room abdomen [...] MDReport Verified Date/Time: 05/23/2019 12:54:18 Reading Location: [facility] B1 C013X Ortho Consult Reading Room [facility] Basic Metabolic Panel 2019-05-23 09:34:00 Test Item [...] mg/dL 70-105 H Calcium (test code = 77698-4) 8.5 mg/dL 8.4-10.2 EGFR (test code = 90505-3) 25 mL/min/1.73 sq m ESTIMATED GFR IS NOT ACCURATE CREATININE CLEARANCE IN PREDICTING GLOMERULAR FILTRATION RATE. ESTIMATED GFR IS NOT APPLICABLE FOR DIALYSIS PATIENTS. PHILLIP (test code = PHILLIP) It Support Specialist ID - KAVONGSanantimekavitha moderately icte waldemar Lab Interpretation (test code = 56227-8) Abnormal [facility] METABOLIC [id number] 09:34:00* Test Item Value Reference Range Interpretation [...] GFR IS NOT APPLICABLE FOR DIALYSIS PATIENTS. It Support Specialist ID - PORSHAIANGSpecimen moderately ictericHepatic function [id number] 09:29:00* Test Item Value Reference Range Interpretation Comments Protein, Total (test code = 2885-2) 6.5 6.0- 8.3 gm/dL Albumin (test code = 27115-6) 3.4 g/dL 3.5-5 L Total Bilirubin (test code = 1974-2) 5.4 mg/dL 0.2-1.2 H Bilirubin, Direct (test code = 1967-7) 2.6 mg/dL 0.1-0.5 H Alkaline Phosphatase (test code = 6768-6) 200 U/L 40-150 H AST (test code = 1920-8) 46 U/L 5-34 H ALT (test code = 1742-6) 12 U/L 6-55 PHILLIP (test code = PHILLIP) It Support Specialist ID - Kavon moderately icte waldemar Lab Interpretation (test code = 80638-6) [facility] [id number] 09:29:00* Test Item Value Reference Range Interpretation [...] (test code = 347) 12 U/L 6-55 It Support Specialist ID - Kavon moderately ictericCBC with platelet count + automated [id number] 09:27:00* Test Item Value Reference Range Interpretation [...] K/CU MM L MPV (test code = 66290-9) 8.4 fL 9.4-12.4 L nRBC (test code [...] % 0-1 Lab Interpretation (test code = 82552-4) Abnormal [facility] W/PLT COUNT & AUTO [id number] 09:27:00* Test Item Value Reference Range Interpretation [...] code = 2801) 0 % 0-1 Prothrombin time/[id number] 09:19:00* Test Item Value Reference Range Interpretation [...] heart valves. Lab Interpretation (test code = 69226-6) [facility]normal [facility]/[id number] 09:19:00* Test Item Value Reference Range Interpretation [...] patie nts wiht mechanical heart valves.MISCELLANEOUS LAB [id number] 08:04:00* Test Item Value Reference Range Interpretation Comments SCAN RESULT (test code = 0705725) Treadmill tolerance(Non-Nuclear Treadmill)2019-05-15 22:24:56Interface, External Ris In [...] Sera, Hi pinedo (8216) on 05/15/2019 10:24:47 [facility] METABOLIC [id number] 11:48:00* Test Item Value Reference Range Interpretation [...] GFR IS NOT APPLICABLE FOR DIALYSIS PATIENTS. It Support Specialist ID Tanja DASILVA MSpecimen slightly ictericBILIRUBIN, [id number] 11:32:00* Test Item Value Reference Range Interpretation Comments BILIRUBIN DIRECT (BEAKER) (test code = 706) 2.0 mg/dL 0.1-0.5 H HEPATIC FUNCTION [id number] 11:32:00* Test Item Value Reference Range Interpretation [...] (test code = 347) 8 U/L 6-55 It Support Specialist ID Tanja DASILVA MSpecimen slightly ictericCBC W/PLT COUNT & AUTO [id number] 11:30:00* Test Item Value Reference Range Interpretation [...] code = 2801) 1 % 0-1 PROTHROMBIN TIME/[id number] 11:25:00* Test Item Value Reference Range Interpretation [...] mechanical heart valves.Body fluid culture + gram [id number] 15:44:00* Test Item Value Reference Range Interpretation Comments Result (test code = 6463-4) No growth Gram Stain Result (test code = 1123) No organisms seen [facility] GRAM [id number] 15:44:00 * Test Item Value Reference Range Interpretation Comments CULTURE (BEAKER) (test code = 1095) No growth GRAM STAIN RESULT (BEAKER) (test code = 1123) 1+ White blood cells seen GRAM STAIN RESULT (BEAKER) (test code = 30018) No organisms seen [id number] 06:38:00* Test Item Value Reference Range Interpretation Comments Magnesium (test code = 57332-0) 1.9 mg/dL 1.6-2.6 PHILLIP (test code = PHILLIP) It Support Specialist ID - ULYSSES M Lab Interpretation (test code = 58173-9) Normal [facility]2020-[facility]-14 06:38:00* Test Item Value Reference Range Interpretation Comments Phosphorus (test code = 2777-1) 3.4 mg/dL 2.3-4.7 PHILLIP (test code = PHILLIP) It Support Specialist ID - ULYSSES M Lab Interpretation (test code = 73775-1) Normal [facility]2020-03-14 06:38:00* Test Item Value Reference Range Interpretation Comments PHOSPHORUS (BEAKER) (test code = 604) 3.4 mg/dL 2.3-4.7 It Support Specialist ID - ULYSSES [id number] 06:38:00* Test Item Value Reference Range Interpretation Comments MAGNESIUM (BEAKER) (test code = 627) 1.9 mg/dL 1.6-2.6 It Support Specialist ID - ULYSSES MBlood Culture - Routine (Left Venipuncture)2019-05-09 20:01:00* Test Item Value Reference Range Interpretation Comments Result (test code = 6463-4) No growth in 5 days [facility] [id number] 20:01:00* Test Item Value Reference Range Interpretation Comments CULTURE (BEAKER) (test code = 1095) No growth in 5 days BLOOD [id number] 20:00:00* Test Item Value Reference Range Interpretation Comments CULTURE (BEAKER) (test code = 1095) No growth in 5 days [id number] 16:28:00* Test Item Value Reference Range Interpretation Comments Case Report (test code = 104) Medical Cytology Report Case: [id number] Authorizing Provider: Robbie New MD Collected: 05/07/2019 1920 Ordering Location: [address] Received: 05/08/2019 1445 Pathologist: Iman Yang MD Specimen: Pericardial DIAGNOSIS (test code = 3220) [file] XGZzMjRccWxcbGFuZzEwMzNcaGljaFxmMVxkYmNoXG OfYLwoI8ccXjBaPcMiDwv0BOZnbFBaAGUuIwl5RHUbsFOcMNQUmMzjuT4gMIQvtDobuB8asRQ5THKiwo HseRQJhS9pJTUIcV9nKjS6HfUhOhC9UCSfGVhixPQqkK4= CPT Code(s) (test code = 3357) s0gxgCRqEDXsrWOeXtYhJNYgQVBxz7ekPGSqrFSjTtWiJyJoMbZdLmiqqGHdKPVkRmOjt1hiz118zWWp w6iiGTVsUcX8fAIpMGZgbGCnK966e6ner4egfdGkfIV2ZBSgIWM9VEplfuHcvtL0AXomjZFlHiE7DMge ekYhFRcomuHpnhJjYut3TQAnV520IZD5tWufk1diAJ S4IWChMMAdWvEeTp3bqLEtB385ULEoFOAOIWUseIq9UAQipzDnhcMmtQAAa861C772q9puZKRkltSmlB dGhhkpc1tcL064PEWykLBiioDhEdXgWLPqgGSefXN2NLKlTO8kuhowDnWtOJ7xikhkZfJtTU7alai2De DcGS0spfdlNnUkGFtfPDJiphsfKQEfm2ImecigHF1x N4Cuc6Z7sE8kmMGyIXScmIBgXeAqRPCthx5pxATcFHuvx5ReDGX3siJ2yPYykRKhCTTwJY91Jcsam8Tc GblmFFN7GACkarPut4Bwt1ncLkZwxcWwI6ciU2EnNGQiFNUbIUKaReAzfdYod1Hal3QfwCQocWu8j0wg EODoYZFoqWewd0nfXPQ2HSVqF5T8uAUyg1amJEaeSV KyrGI6quddEMvxSKDkbkC0zywmMGbcHOQzjIK6niitYSwrXOBtXlN5gsefZZgoXGFxXVV1UBjhr729RY G2OXktGixjWIcmQTCptmAaxbGjaVyqNDKcLNTpILxlXYFbHLcqPCOtTTYiUtRszEkkqYnxhX9uWaXiXm NzOAtcGJ8lGHMkT7iqiEErPPCfJOVzB6svWvYhhZ4laOzaAYjkqrAxWDc3QOI7PQHubs7= CLINICAL DATA (test code = 3355) v4zgyXGtCQSntXYuEfTbFLFmUMSor0noDMVnnJWjVlEfOiCqFaEaPakklUBoNVMbMlZlu8jhu916hDQo n2inYPFvBfF8sODyVVYgjEHfV531z9zkz7hemrDwjTM9CXTaSMT1IBsesdYyngK9FNhxxQNwOyH4HXfb hrNjZXwzxbYqicHiCib2QYBpM497UYJ8rKeig0lhRM Q4OPTwCRJpEnIeVa7ljNQuB356YTVfWHZEFGVacYd6LENbrySuqfBjpNYEx692P247m6usHPZggdGehR vTiqhun1cjE169LOEdzEDnzhPeDhKxGEChuKMipCF5NDMfXJ9mlbuoVxOiKZ5qgnooSoQuJK6zfdh5Lz ElGY3vdbahEyQaXJubWVNxonscTVVwu1ViwfogER0y T9Oon5J7wP1fpAOzXISvxNYtJzVzWTXrxo8goPGpUGery7LoXVU7rtP7sESnjYIrUBMnWY73Ddhil2Ui DeeyUVJ1MCXbuaXgz4Yof9zgWrFqgnVfK4hpV3FgMXMhUMNuNRJmDcWbooVoz2Jdt1VpwVIewGy1d9gu PWPwJJHxgTdpu9ptIYH7ZAJlG6J6bQWsc2xgREabAZ HdhPO0uvlkLArnYTNafhM6mhziELpvRQVfjVD7vtywHWnoYENoPkH6wentHJgvOWMmYBQ4XWdji556KU P5MXkmUeioHAjmYCTenfRifbBctXokRNSyAWOmEOyaJKBrKQisKMDgSENtCwPpnOuucNuliC5pRpKdKs WdCKvkCU4aBMAtH3adrLVrIKJmMZCyL1pxEmHofO1c nUbbFCqgtyCxZZBhlvgyDEXdlLMcJHPlXiUzlW4fUJHjnJDjqP5fyPEivDMpoP== SPECIMEN SOURCE (test code = 3377) w3ygnLMwEXTmdGSjVzLsEDFuKJUaq3bhJJKyaUPhOdCwPqYvWlTnEbbgqGQmEVSeXyLtr5dke746wRAt a3ctDPAlJpV7bOQzEVBztGVrH840x9epp7ffgqTpmJQ6GELjJSA7WHkhvsOmibW8FWekgLZrDcJ2HOfq qpAqSSgxdgOlaxCnDvy3PYQxV532ZCR6tCmwi5jjND Y1HRHlLEXtOgMyLe4xrNTnW684PJTqPYXBKHIhoAa9QMFpwuRgdbOehLDEi704G930h9uuKWDyinVueT gJopgbt9njK393GQRuaLUhqvUuTvCfEINbkPZrxJT6ACDuWQ2rsaokEsOoAR0jhxvzLjSrSR5yxmy7Qe CgVR1qboupLrIoPQvvKWDcmrskSVFbg1WndigvZJ5d H7Tvw3O2lB5cdOIoCSFtdDGiXgZfDUMjbl7miYZsIDkwr6HzHJB2onQ0mTQnhAAxYLKzAO82Anipi3By LvkqRBW4CPQkrwApk3Edr8yxKrUalzKgN4syF8UiOGNlXIXoSHDmVoAaehZmj7Yup5RcgCCpeCs0p8ql JEPuVPEjhOzfc3iiZOW7KVZvZ8X8yWExg9wmNIfoAC HsfZB2zjjhEKvmLDBstsZ6bobtTTbrTZLxfHO6pfcvFKttNJBnKqX5dqxvMOfaVDOcZIE0FKymx393WQ K5OYbvPsukULhvCVLdjxYfkjXtdWjkHKAlTXObKJarXAObOWanMADsUGQtOpYopSrngAoxgG4lDjKbMo NnBXzrOB2rNXEcW6ypmVNoWZTvDCFzF8uvRfQbzJ8v aFxmMFxmczIwIFBFUklDQVJESUFMIEZMVUlEXHBhcn0= GROSS DESCRIPTION (test code = 3366) s8zchPEpCJDhhONcZkChJBMnHNBch1nlOTBxaNAlVvGnEdGvEgIgAspteVUwYZObKzYwj3cyr601tSWs l3wyMSMqHoN4fCAhALXikGDlD361IDJaIPpzg0osi0MjMBWjuGOai2J1VUOMybxcbQx5eJegR56ff8E2 JxkhY0cuCXYsYOFdE9HoGV3qTHMdFyq3WXR1ZHI2FW YvRKFuR0XeXR5vOBDrdTKwKAc9r7nftUdqQWXpERL2g9wgIWolbvWjYS7fkw0rpOv7r0rbobSzWQPvSX ZexTZSBXVyI3PabUgbSp1ptDw2wYcaYciaTMH2Nss9DA1rqe43iuj9nNrrYBMdexnbSvO4CPfuHLNmzk knMOc6QHtkIIFtiKcfUQxsYZMivinoGEbkPQWqfNfd HCpnYWOnPxlcIPyoREJaGZG2WZlrz115UZD8KQcfe7sjz2chaLJlIjn7NIBvRyCqJklpFXhvt3Xuv6pv YZEran6qVVN2qEBmhShid7T5cZRcFHGbqVHiedCgAKIeIgM1AXfbPX6bop88URLcISY8le4fvLTvxSpk pdNlqTWfFWdwK0JsBRPwv026ZDUoV0PuHTNrh0B3dl OvAiZjAULrqNB6tgB7EDCpEKz3jOGqvaF7ddBszNHmQ9bmkF67PbKhtFUoA6VrdT00RzQlfWRxY9VujH 11NtXbrZNqT9XfsN51BpDjcQYiCWXtwIQlOb2wlRFhbYQel6AyaJIvFFeaJ73tm002JJXotqPnL1yvgD ZykvfroDXucwsaCJohpnI6UVIxYKWbPGedXVWlHYMk WpHufXElHvWkVoDadWncvAxvHEbvDdDsSPKcPKssN9rqSyUbPhOcIqX9MOYzcGbdHEEje22krFOuuFWg PShyGFXqnPRpc1DtceKtxOWzZGNcpYggU8KjHRpcWQKrDXDoOPAgbgAWZKMarAMzJFaaCVWuLhJwSWOu cn0= STATEMENT OF ADEQUACY (test code = 2757) Satisfactory Gross assessment was performed at (test code = 2777) [facility], Department of Pathology, [address] [place] [address], Technical component was performed at (test code = 2778 ) [facility], Department of Pathology, [address] [place] [address], Professional component was performed at (test code = 2 779) [facility], Department of Pathology, [address] [place] [address], [facility]2020-[facility]-13 16:28:00Medical Cytology Report Case: [id number] Authorizing Provider: Robbie New MD Collected: 05/07/20191919 Ordering Location: [place] [address] CCU Received: 05/08/2019 1445 Pathologist: Iman Yang MD Specimen: Pericardial PERICARDIAL FLUID (CYTOSPINS): - NEGATIVE FOR MALIGNANCY Signing Pathologist Direct Phone Line: [phone] signed by Iman Yang MD on 05/09/2019 at 4:28 [id number] effusion, cirrhosisPERICARDIAL MEVXA527 mls bloody fluid; 4 cytospinsCollected: 031 120Received: [id number] [facility], Department of P athology, [address] [place] [address], [facility] of [facility], [address] [place] [address] 77 030, [facility], [address] [place] [address], XOT/CT, CARDIAC PERF REST AND [id number] 16:05:00Reason for exam:->CADFINAL REPORT PROCEDURE: MYOCARDIAL PERFUSION PET IMAGING (Rest/Stress)CPT CODE: 58333 INDICATION: Assess symptoms/risk factors of possible CAD [...] Verified Date/ Time: 05/09/2019 16:05:35 Reading Location: [address] [facility] Reading R o Myocardial Perfusion Pet/CT (Rest & Stress)2019-05-09 16:05:00Interface, External Ris In - 05/09/2019 4:07 PM CDTFINAL REPORT PROCEDURE: MYOCARDIAL PERFUSION PET IMAGING (Rest/Stress)CPT CODE: 70001 INDICATION: Assess symptoms/risk factors of possible CAD [...] MDReport Verified Date/Time: 05/09/2019 16:05:35 Reading Location: [address] [facility] Reading Room [facility] CenterComprehensive metabolic pgddc2533-11-61 06:54:00* Test Item Value Reference Range Interpretation Comments Protein, Total (test code = 2885-2) 6.1 6.0- 8.3 gm/dL Specimen slightly hemolyzed Albumin (test code = 44272-2) 2.9 g/dL 3.5-5 L Specimen slightly hemolyzed [...] mg/dL 70-105 H Calcium (test code = 70713-1) 8.1 mg/dL 8.4-10.2 L AST (test code = 1920-8) 30 U/L 5-34 Spe cimen slightly hemolyzed ALT (test code = 1742-6) 8 U/L 6-55 Spe cimen slightly hemolyzed EGFR (test code = 44970-7) 16 mL/min/1.73 sq m ESTIMATED GFR IS NOT ACCURATE CREATININE CLEARANCE IN PREDICTING GLOMERULAR FILTRATION RATE. ESTIMATED GFR IS NOT APPLICABLE FOR DIALYSIS PATIENTS. PHILLIP (test code = PHILLIP) It Support Specialist ID - ULYSSES MSpecimen slightly icteric Lab Interpretation (test code = 55542-3) Abnormal [facility] [id number] 06:54:00* Test Item Value Reference Range Interpretation [...] GFR IS NOT APPLICABLE FOR DIALYSIS PATIENTS. It Support Specialist ID Tanja ARORA MSpecimen slightly ictericCBC W/PLT [...] (test code = 2801) 1 % 0-1 [id number] 06:50:00* Test Item Value Reference Range Interpretation Comments MAGNESIUM (BENEETU) (test code = 627) 2.1 mg/dL 1.6-2.6 Specimen slightly hemolyzed It Support Specialist ID - ULYSSES PYRPYJLGKWR7332-47-95 06:50:00* Test Item Value Reference Range Interpretation Comments PHOSPHORUS (BEAKER) (test code = 604) 3.4 mg/dL 2.3-4.7 Specimen slightly hemolyzed It Support Specialist ID - ULYSSES MLimited 2D Qfiykkqgrguokl4292-87-85 13:37:26Ejection FractionSLEH ECHO HEARTLAB MKCKESSON CPACSInterface, External Ris In - 05/08/2019 1:37 PM CDTTransthoracic Echocardiography Report (TTE) Demographics Patient Name INDRA GALVAN Date of Study 05/08/2019 YAN CORDERO Gender Male Visit Number [id number] Race Unknown Room Number 6213 Number Date of 1980 Referring Physician ROBBIE NEW Age 38 year(s) Wing Coverer Renny Yepez Director Television Nick Navarro I nterpreting Brandy Jackson MD [...] (>60%) . Left Atrium LA size is mobt-ua-cotptdfgqa enlarged . Right Ventricle Normal right ventricle [...] Root S of Yasmin.: 3.23 cm [facility] W/Doppler(CW/PW/Color)2019-05-08 09:47:52Ejection FractionSLEH ECHO HEARTLAB MKCKESSON CPACSInterface, External Ris In - 05/08/2019 9:48 AM CDTTransthoracic Echocardiography Report (TTE) Demographics Patient Name INDRA GALVAN Date of Study 05/07/2019 YAN CORDERO Gender Male Visit Number [id number] Race Unknown Room Number 6213 Number Date of 1980 Referring Robbie New MD Physician Age 38 year(s) Wing Coverer Aneudy Jerez Interpreting Vic Caruso Physician Fellow [...] A moderate-large circumferential pericardial effusion is present. [facility] CenterManual Sfekiwhsaxhk5372-00-30 07:53:00* Test Item Value Reference Range Interpretation [...] 3438) Adequate PHILLIP (test code = PHILLIP) It Support Specialist ID - Ivonne Espinal comments: Slide comm ents: Lab Interpretation (test code = 98603-3) Abnormal [facility] W/PLT COUNT & AUTO RUVFZQVRYUMH1329-67-24 07:53:00* Test Item Value Reference Range Interpretation [...] (CELLAVISION)(BEAKER) (test code = 3438) Cheryl quate It Support Specialist ID - Ivonne Espinal comments: Slide comments: Wmzsxxywogfch6265-87-85 04:01:00* Test Item Value Reference Range Interpretation Comments Procalcitonin (test code = 20583-4) 3.64 ng/mL <0.05 H PHILLIP (test code = PHILLIP) SEPSIS RISK (ng/mL)Low: 0.05-0.50Intermediate: 0.51-2.00High: >=2.01 Lab Interpretation (test code = 29053-3) Abnormal [facility] HospitalUymovrUNHKJREEIHGXR8673-96-28 04:01:00* Test Item Value Reference Range Interpretation Comments PROCALCITONIN (BEAKER) (test code = 3036) 3.64 ng/mL <0.05 H SEPSIS RISK (ng/mL)Low: 0.05-0.50Intermediate: 0.51-2.00High: > =2.01BASIC METABOLIC [id number] 03:47:00* Test Item Value Reference Range Interpretation [...] GFR IS NOT APPLICABLE FOR DIALYSIS PATIENTS. It Support Specialist ID - LAUREN WSpecimen moderately jkmjungMKIHEIRREI0518-52-97 03:44:00* Test Item Value Reference Range Interpretation Comments PHOSPHORUS (BEAKER) (test code = 604) 2.2 mg/dL 2.3-4.7 L It Support Specialist ID - LAUREN GYSKXHGVXJ0820-85-09 03:44:00* Test Item Value Reference Range Interpretation Comments MAGNESIUM (BEAKER) (test code = 627) 1.8 mg/dL 1.6-2.6 It Support Specialist ID - LAUREN WPrepare Leuko-Red MWK1569-63-52 23:54:00* Test Item Value Reference Range Interpretation Comments CROSSMATCH (test code = 2264) COMPATIBLE Unit ABO (test code = 8528163) B Pos UNIT NUMBER (test code = 934-0) [id number] Status (test code = 4227026) [place]_TIMEINCHART Blood Bank Product (test code = 2263) RED BLOOD CELLS PRODUCT CODE (test code = 933-2) [id number] [facility] CenterCarotid doppler tflgcmbws7066-63-26 16:57:29 Ejection FractionSLEH ECHO HEARTLAB MKCKESSON CPACSRight Impression1. The recruiting intern al carotid artery is within normal limits.2. [...] CDTPV LAB - Carotid Duplex Study Demograp [facility] Patient Name INDRA GALVAN Date of Study 05/06/2019 YAN CORDERO Age 38 Visit Number [id number] Gender Male Accession Elizabeth tinajero [id number] Date of 1980 Referring Radha antolin Carranza Room Number 6077 Physician SARAH Wing Coverer Cb Maki S Interpreting Karen Blackwell Physician [...] left side. - Additional Measurements:ICAPSV/CCAPS V 0.96.ICAEDV/CCAEDV 1.42.[facility] W/PLT COUNT & AUTO ITMCGRGNWJUF5130-98-26 11:24:00* Test Item Value Reference Range Interpretation [...] (CELLAVISION)(BEAKER) (test code = 3438) Cheryl quate It Support Specialist ID - Marcella OverholtUser comments: Slide comments: COMPREHENSIVE METABOLIC [id number] 07:21:00* Test Item Value Reference Range Interpretation [...] GFR IS NOT APPLICABLE FOR DIALYSIS PATIENTS. It Support Specialist ID - ULYSSES MSpecimen slightly tzejklh0Z Echo W/Doppler(CW/PW/Color) 2019-05-06 15:24:38Ejection FractionSLEH ECHO HEARTLAB MKCKESSON CPACSInterface, External Ris In - 05/06/2019 3:24 PM CDTTransthoracic Echocardiography Report (TTE) Demographics Patient Name INDRA GALVAN Date of Study 05/06/2019 YAN CORDERO Gender Male Visit Number [id number] Race Unknown Room Number 2454 Number Date of 1980 Referring Robbie New MD Physician Age 38 year(s) Wing Coverer Aneudy Jerez Director Television Joanna Whitley Interpreting Pratik Alexis MD Procedure [...] 6.14 mmHg Deceleration Time: 173.5 msec MV Doen. Peak: Tissue Doppler E' Septal Velocity: 0.09 [...] Velocity: 2.75 m/s TR Gradient: 30.26 mmHg [facility] CenterUrine wsirqsf2425-67-13 10:47:00* Test Item Value Reference Range Interpretation Comments Result (test code = 6463-4) <10,000 col/mL skin chase [facility] CenterCBC W/PLT COUNT & AUTO PEYXCFNVTDUQ0729-61-53 09:56:00* Test Item Value Reference Range Interpretation [...] (CELLAVISION)(BEAKER) (test code = 3438) Cheryl quate It Support Specialist ID - Giselle Ishmael comments: Slide comments: WBC: SEGMENTED WI TH TOXIC GRANULATIONS PRESENT ECG 12 xrzt9218-04-38 06:34:13Interface, External Ris In - 05/06/2019 6:34 AM CDTVentricular Rate 128 BPMAtrial Rate 89 BPMQRS Duration 94 msQ-T Interval 336 msQTC Calculation(Bazett) 490 msR Frazer 151 degreesT Frazer -88 degreesAtrial fibrillationLeft posterior fascicular blockST & T wave abnormality, consider inferior ischemiaST & T wave abnormality, consider anterolateral ischemiaAbnormal ECGWhen compared with ECG of 05-MAY-2019 20:52,Atrial fibrillation PresentInverted T waves have replaced nonspecific T wave abnormality in Inferior leadsInverted T waves have replaced nonspecific T wave abnormality in Anterolateral leadsConfirmed by MD CHELA, INDRA Simon ([id number]) on 05/06/2019 6:34:11 [facility] HospitalCOMPRE[facility]ENSIVE METABOLIC [id number] 06:25:00* Test Item Value Reference Range Interpretation [...] GFR IS NOT APPLICABLE FOR DIALYSIS PATIENTS. It Support Specialist ID - ULYSSES MSpecimen moderately hscmbeqALTSMAEXA4842-83-17 06:24:00* Test Item Value Reference Range Interpretation Comments MAGNESIUM (BEAKER) (test code = 627) 1.9 mg/dL 1.6-2.6 It Support Specialist ID - ULYSSES MBASIC METABOLIC WBTCW3902-67-74 21:58:00* Test Item Value Reference Range Interpretation [...] GFR IS NOT APPLICABLE FOR DIALYSIS PATIENTS. It Support Specialist ID - BSSpecimen moderately ictericTroponin [id number] 21:56:00* Test Item Value Reference Range Interpretation Comments Troponin I (test code = 61308-5) <0.01 0-0.03 PHILLIP (test code = PHILLIP) [...] failure, acidosis, acute neurological disease, and persistent tachyarrhythmia.It Support Specialist ID - BS Lab Interpretation (test code = 79408-9) Normal [facility] CenterTROPONIN [id number] 21:56:00* Test Item Value Reference Range Interpretation [...] acidosis, acute neurological disease, and per sistent tachyarrhythmia.It Support Specialist ID - XEVHRIWJWTT3365-57-81 21:49:00* Test Item Value Reference Range Interpretation Comments MAGNESIUM (BEAKER) (test code = 627) 1.8 mg/dL 1.6-2.6 Specimen slightly hemolyzed It Support Specialist ID - BSCBC W/PLT COUNT & AUTO QFVMJHAWKTFF3416-60-16 21:32:00* Test Item Value Reference Range Interpretation [...] 2801) 1 % 0-1 Hepatitis B surface toglysx1457-72-70 17:35:00* Test Item Value Reference Range Interpretation Comments HBsAg Screen (test code = 5195-3) Nonreactive Nonreactive PHILLIP (test code = PHILLIP) It Support Specialist ID - BS Lab Interpretation (test code = 06849-7) Normal [facility] CenterHEPATITIS B SURFACE OYULFJT8417-17-95 17:35:00* Test Item Value Reference Range Interpretation Comments HEPATITIS B SURFACE ANTIGEN (2) (BEAKER) (test code = 2585) Nonreactive Nonreactive It Support Specialist ID - BSOccult blood, widmt1196-96-14 14:45:00* Test Item Value Reference Range Interpretation Comments Occult blood (test code = 2335-8) Negative Negative Lab Interpretation (test code = 40526-9) Normal [facility] CenterOCCULT BLOOD, [id number] 14:45:00* Test Item Value Reference Range Interpretation Comments FECAL OCCULT BLOOD (BEAKER) (test code = 618) Negative Negative Eqesxsst0892-63-51 10:41:00* Test Item Value Reference Range Interpretation Comments Ferritin (test code = 2276-4) 1081 ng/mL 5-275 H PHILLIP (test code = PHILLIP) It Support Specialist ID - AAHAMID Lab Interpretation (test code = 57887-8) Abnormal [facility] CenterFERRITIN2020-03-09 10:41:00* Test Item Value Reference Range Interpretation Comments FERRITIN (BEAKER) (test code = 361) 1081 ng/mL 5-275 H It Support Specialist ID - AAHAMIDDirect AHG (LUMA)/Direct Drgxor2534-92-47 10:38:00* Test Item Value Reference Range Interpretation Comments Direct AHG-IGG (test code = 1006-6) NEGATIVE Direct AHG-C3B, C3D (test code = 1003-3) NEGATVIE [facility] CenterABORH, pzgmjo3413-36-50 10:28:00* Test Item Value Reference Range Interpretation Comments ABO Grouping (test code = 2588) B Rh Factor (test code = 2589) POS [facility] HospitalCOMPREHENSIVE METABOLIC [id number] 10:25:00* Test Item Value Reference Range Interpretation [...] GFR IS NOT APPLICABLE FOR DIALYSIS PATIENTS. It Support Specialist ID - PIAYA LSpecimen moderately ictericIron, TIBC, % sat. (without ferritin)2019-05-05 10:21:00* Test Item Value Reference Range Interpretation Comments Iron (test code = 2498-4) 88.0 ug/dL 40-160 TIBC (test code = 2500-7) 130 ug/dL 250-450 L Iron % Saturation (test code = 2502-3) 68 % 20-55 H PHILLIP (test code = PHILLIP) It Support Specialist ID - ROZINA L Lab Interpretation (test code = 12695-5) Abnormal [facility] HospitalIRON, TIBC, % SAT. (WITHOUT FERRITIN)2019-05-05 10:21:00* Test Item Value Reference Range Interpretation Comments IRON (BEAKER) (test code = 547) 88.0 ug/dL 40.0-160.0 TOTAL IRON BINDING CAPACITY (BEAKER) (test code = 769) 130 ug/dL 250-450 L IRON % SATURATION (2) (BEAKER) (test code = 2590) 68 % 20-5 5 H It Support Specialist ID - ROZINA LBILIRUBIN, [id number] 10:20:00* Test Item Value Reference Range Interpretation Comments BILIRUBIN DIRECT (BEAKER) (test code = 706) 3.0 mg/dL 0.1-0.5 H It Support Specialist ID - ROZINA LCBC W/PLT COUNT & AUTO [id number] 10:08:00* Test Item Value Reference Range Interpretation [...] code = 2801) 1 % 0-1 Reticulocyte nezcs7865-32-96 10:04:00* Test Item Value Reference Range Interpretation Comments % Retic (test code = 29807-7) 2.3 % 0.5-1.8 H PHILLIP (test code = PHILLIP) It Support Specialist ID - 6000 Lab Interpretation (test code = 59488-9) Abnormal [facility] CenterRETICULOCYTE [id number] 10:04:00* Test Item Value Reference Range Interpretation Comments RETICULOCYTE COUNT PCT (BEAKER) (test code = 575) 2.3 % 0.5- 1.8 H It Support Specialist ID - 6000Lactic acid, rwxpmh8037-08-49 00:50:00* Test Item Value Reference Range Interpretation Comments Lactate, Venous (test code = 2872) 2.6 mmol/L 0.5-2.2 H PHILLIP (test code = PHILLIP) It Support Specialist ID - PIAYA LSpecimen slightly icteri c Lab Interpretation (test code = 30939-3) Abnormal [facility] CenterLACTIC ACID, [id number] 00:50:00* Test Item Value Reference Range Interpretation Comments LACTATE BLOOD VENOUS (2) ([facility]) (test code = 2872) 2.6 mmol/L 0 .5-2.2 H It Support Specialist ID - ROZINA LSpecimen slightly ictericStrep pneumoniae ztqtomx2230-44-78 21:50:00* Test Item Value Reference Range Interpretation Comments Strep pneumoniae Antigen (test code = 22617-7) Presump tive negative for pneumococcal pneumonia - [...] the test. Lab Interpretation (test code = 94161-5) [facility] CampusTREP PNEUMONIAE [id number] 21:50:00* Test Item Value Reference Range Interpretation Comments STREP PNEUMONIAE ANTIGEN ([facility]) (test code = 1615) P resumptive negative for pneumococcal pneumonia - see comment Presumptive negative for pneumococcal pneumonia - see commen Presumptive negative for pneumococcal pneumonia, suggesting no current or recent pneumococcal infection. Infection due to S. pneumoniae cannot be ruled out since the antigen present in the sample may be below the detection limit of the test. Legionella antigen, [id number] 21:49:00* Test Item Value Reference Range Interpretation Comments Legionella Urine Antigen (test code = 88803-1) Negative - see comme nt Negative for L. pneumophila serogroup 1 antigen, suggesting no recent or current infection with this serogroup. Legionellosis cannot be ruled out since other serogroups and species may cause disease. [facility] CenterLEGIONELLA ANTIGEN, [id number] 21:49:00* Test Item Value Reference Range Interpretation Comments L. PNEUMOPHILA SEROGP 1 UR AG ([facility]) (test code = 11 56) Negative - [...] Ab Scrn (test code = 890-4) NEGATIVE [facility] CenterPROCALCITONIN2020-03-08 20:32:00* Test Item Value Reference Range Interpretation Comments PROCALCITONIN (BEAKER) (test code = 3036) 14.51 ng/mL <0.05 HH SEPSIS RISK (ng/mL)Low: 0.05-0.50Intermediate: 0.51-2.00High: > =2.01Urinalysis w/Microscopic + Reflex to Nluhshr5210-44-89 20:25:00* Test Item Value Reference Range Interpretation Comments Color, UA (test code = 5778-6) Yellow Clarity, UA (test code = 5767-9) Hazy Specific [place], UA (test code = 5811-5) 1.011 1.001-1.035 pH, UA (test code = 5803-2) 5.5 5.0-8.0 Protein, UA (test code = 47764-0) 100 mg/dL Negative A Glucose, UA (test code = 365) 100 mg/dL Negative A Ketones, UA (test code = 2514-8) Negative Negative Bilirubin, UA (test code = 85700-6) Negative Negative Blood, UA (test code = 04279-0) Negative Negative Nitrite, UA (test code = 5802-4) Negative Negative Leukocytes, UA (test code = 5799-2) Negative Negative Urobilinogen, UA (test code = 19882-9) 0.2 mg/dL 0.2-1 RBC, UA (test code = 84122-0) 7 /HPF WBC, UA (test code = 5821-4) 12 /HPF Bacteria, UA (test code = 06297-9) Occasional Mucus (test code = 8247-9) Rare Squam Epithel, UA (test code = 83758-4) 18 /HPF Hyaline Casts, UA (test code = 81343-3) 78 /LPF Casts (test code = 9842-6) 70 /LPF Crystals, Urine (test code = 40434-1) Occasional Yeast (test code = 62305-7) Moderate Specimen Source (test code = 2795) PHILLIP (test code = PHILLIP) It Support Specialist ID - [auto]It Support Specialist ID - tech Lab Interpretation (test code = 54325-5) [facility] REFLEX URINE [id number] 20:25:00* Test Item Value Reference Range Interpretation [...] 1585) Moderate SOURCE(BEAKER) (test code = 2795) It Support Specialist ID - [auto]It Support Specialist ID - techPT/[id number] 20:11:00* Test Item Value Reference Range Interpretation Comments Protime (test code = 5902-2) 18.9 11.9- 14.2 seconds H INR (test code = 6301-6) 1.6 <=5.9 PTT (test code = 05321-8) 40.7 22.5- 36.0 seconds H PHILLIP (test code = PHILLIP) Effective 07/24/2018: PT Refe rence Range ChangeNew: 11.9- 14.2 Previous: 11.7-14.7 RECOMMENDED COUMADIN/WARFARIN INR THERAPY RANGESSTANDARD DOSE: 2.0-3.0 Includes: PROPHYLAXIS for venous thrombosis, sys temic embolization; TREATMENT for venous thrombosis and/or pulmonary embolus.HIGH RISK: Target INR is 2.5-3.5 for patients wiht mechanical heart valves. Lab Interpretation (test code = 92246-3) [facility] CenterPT/[id number] 20:11:00* Test Item Value Reference Range Interpretation [...] Range Interpretation Comments BNP (test code = 14747-9) 612 pg/mL 0-100 H PHILLIP (test code = PHILLIP) It Support Specialist ID - DB Lab Interpretation (test code = 73734-7) [facility]normal [facility] CenterRapid Influenza A&B [id number] 20:00:00* Test Item Value Reference Range Interpretation Comments Rapid Influenza A Antigen (test code = 91550-8) Negative Negative, Inconclusive Rapid influenza B Antigen (test code = 58162-0) Negative Negative, Inconclusive Lab Interpretation (test code = 58677-2) Normal [facility] CenterB[facility] NATRI[facility] FACTOR (BNP)2019-05-04 20:00:00 * Test Item Value Reference Range Interpretation Comments B-TYPE NATRIURETIC PEPTIDE (BEAKER) (test code = 700) 612 pg/mL 0-100 H It Support Specialist ID - DBTROPONIN [id number] 20:00:00* Test Item Value Reference Range Interpretation [...] acidosis, acute neurological disease, and per sistent tachyarrhythmia.It Support Specialist ID - DBRAPID INFLUENZA A&B BBULFA9016-24-66 20:00:00* Test Item Value Reference Range Interpretation Comments RAPID INFLUENZA A AG (BEAKER) (test code = 1622) Negative Negative, Inconclusive RAPID INFLUENZA B AG (BEAKER) (test code = 1623) Negative Negative, Inconclusive GJGUYHRMBQ5021-02-19 19:54:00* Test Item Value Reference Range Interpretation Comments PHOSPHORUS (BEAKER) (test code = 604) 2.9 mg/dL 2.3-4.7 It Support Specialist ID - FSLEWUKHITX1378-19-27 19:54:00* Test Item Value Reference Range Interpretation Comments MAGNESIUM (BEAKER) (test code = 627) 2.0 mg/dL 1.6-2.6 It Support Specialist ID - DBCOMPREHENSIVE METABOLIC MUTJH2353-39-72 19:54:00* Test Item Value Reference Range Interpretation [...] GFR IS NOT APPLICABLE FOR DIALYSIS PATIENTS. It Support Specialist ID - DBSpecimen slightly ictericCBC W/PLT COUNT [...] = 2801) 1 % 0-1 LACTIC ACID, [id number] 19:48:00* Test Item Value Reference Range Interpretation Comments LACTATE BLOOD VENOUS (2) (BEAKER) (test code = 2872) 2.7 mmol/L 0 .5-2.2 H Specimen slightly hemolyzed It Support Specialist ID - DBSpecimen slightly ictericCRITICAL DAWU2194-33-31 18:47:50Juanpablo Calhoun MD 05/04/2019 9:12 PMCritical CarePerformed [...] condition and r eview of old charts. [facility] CenterRAD[facility] 1 [facility], NON DEPT 2019-05-04 18:08:00Reason [...] MDReport Verified Date/Time: 05/04/2019 18:08:08 Reading Location: [address] Transitional Reading Room chest 1 view portable / zngiibj8035-46-31 18:08:00Interface, External Ris In - 05/04/2019 6:10 PM CDTFINAL REPORT EXAM: Chest one view COMPARISON: December 22, 2018 Clinical history: Weakness FINDINGS: There is persistent cardiomegaly. There is interval improvement in pulmonary edema. The right internal jugular chest tunneled dialysis catheter appears unchanged in position. The regional osseous structures are unremarkable Signed: Sadiq Haines MDReport Verified Date/Time: 05/04/2019 18:08:08 Reading Location: [address] Transitional Reading Room [facility] CenterBASIC METABOLIC [id number] 11:09:00* Test Item Value Reference Range Interpretation [...] GFR IS NOT APPLICABLE FOR DIALYSIS PATIENTS. It Support Specialist ID - LMSpecimen slightly ictericHEPATIC FUNCTION WYMOA1300-22-15 11:04:00* Test Item Value Reference Range Interpretation [...] (test code = 347) 12 U/L 6-55 It Support Specialist ID - LMSpecimen slightly ictericPROTHROMBIN TIME/[id number] 10:47:00 * Test Item Value Reference Range [...] mechanical heart valves.CBC W/PLT COUNT & AUTO KSEAOZENOGSG8178-75-64 10:40:00* Test Item Value Reference Range Interpretation [...] = 2801) 0 % 0-1 BASIC METABOLIC [id number] 11:22:00* Test Item Value Reference Range Interpretation [...] GFR IS NOT APPLICABLE FOR DIALYSIS PATIENTS. It Support Specialist ID - NTPSpecimen slightly ictericHEPATIC FUNCTION IYADB4991-22-47 11:09:00* Test Item Value Reference Range Interpretation [...] (test code = 347) 16 U/L 6-55 It Support Specialist ID - NTPSpecimen slightly ictericCBC W/PLT COUNT [...] = 2801) 0 % 0-1 No clotPROTHROMBIN TIME/[id number] 11:03:00* Test Item Value Reference Range Interpretation [...] patie nts wiht mechanical heart valves.COMPREHENSIVE METABOLIC KWDNO0619-94-32 12:23:00* Test Item Value Reference Range Interpretation [...] APPLICABLE FOR DIALYSIS PATIENTS. Specimen slightly ictericBILIRUBIN, [id number] 12:18:00* Test Item Value Reference Range Interpretation Comments BILIRUBIN DIRECT (BEAKER) (test code = 706) 2.4 mg/dL 0.1-0.5 H CBC W/PLT COUNT & AUTO PDANZHYGLFTE7628-20-94 12:16:00* Test Item Value Reference Range Interpretation [...] code = 2801) 1 % 0-1 PROTHROMBIN TIME/ZPG7338-01-12 12:09:00* Test Item Value Reference Range Interpretation [...] patie nts wiht mechanical heart valves.HLA TYPING [id number] 21:42:00* Test Item Value Reference Range Interpretation [...] and its performance characteristics determined by the [facility] Laboratory. It has not been cleared [...] to perform high complexity clinical laboratory testing. [facility] CenterHLA TYPING [id number] 21:42:00* Test Item Value Reference Range Interpretation [...] and its performance characteristics determined by the [facility] Laboratory. It has not been cleared [...] to perform high complexity clinical laboratory testing. [facility] CenterCOMPREHENSIVE METABOLIC [id number] 12:19:00* Test Item Value Reference Range Interpretation [...] APPLICABLE FOR DIALYSIS PATIENTS. Specimen moderately ictericBILIRUBIN, CEEQGW1549-87-72 12:18:00* Test Item Value Reference Range Interpretation Comments BILIRUBIN DIRECT (BEAKER) (test code = 706) 4.1 mg/dL 0.1-0.5 H U/S, PELVIS, WITH [id number] 11:35:00Reason for Exam:->esrd/kidney transplant evaluationFINAL REPORT Pelvic [...] Garcia Verified Date/Time: 02/03/2019 11:35:01 Reading Location: [address] Radiology Reading Room pelvis with hezfcrs2627-04-50 11:35:00Interface, External Ris In - 02/03/2019 11:37 [...] Verified Date/Time: 02/03/2019 11:35:01 Reading Locati on: [address] Radiology Reading Room [facility] CenterPROTHROMBIN TIME/[id number] 11:12:00* Test Item Value Reference Range Interpretation [...] mechanical heart valves.CBC W/PLT COUNT & AUTO NGFLTTGGLVBX4941-21-14 11:10:00* Test Item Value Reference Range Interpretation [...] 2801) 1 % 0-1 AB SPECIFICITY CLASS [id number] 09:48:00* Test Item Value Reference Range Interpretation Comments AB Specificity Class I (test code = 3457) NO CLASS I A NTIBODY DETECTED WITH MFIs > 4000 PHILLIP (test code = PHILLIP) Disclaimer: This test was de veloped and its performance characteristics determined by the [facility] Laboratory. It has not been cleared [...] to perform high complexity clinical laboratory testing. [facility] CenterFLOW PRA CLASS I WITH REFLEX TO ANTIBODY VAXFEMJYCME7788-65-24 10:06:00* Test Item Value Reference Range Interpretation Comments Flow Class I Percent Positive (test code = 3229) 20 PHILLIP (test code = PHILLIP) Disclaimer: This test was de veloped and its performance characteristics determined by the [facility] Laboratory. It has not been cleared [...] to perform high complexity clinical laboratory testing. [facility] CenterFLOW PRA CLASS II WITH REFLEX TO ANTIBODY NRTMHAZSVXX0382-92-02 10:06:00* Test Item Value Reference Range Interpretation Comments Flow Class II Percent Positive (test code = 3231) 0 PHILLIP (test code = PHILLIP) Disclaimer: This test was de veloped and its performance characteristics determined by the [facility] Laboratory. It has not been cleared [...] to perform high complexity clinical laboratory testing. [facility] CenterMISCELLANEOUS LAB [id number] 07:41:00* Test Item Value Reference Range Interpretation Comments SCAN RESULT (test code = 9355549) Esvxsejjffj5402-76-59 19:31:00* Test Item Value Reference Range Interpretation Comments Haptoglobin (test code = 4542-7) 14 mg/dL 14-258 Lab Interpretation (test code = 53400-7) Normal [facility] CenterHAPTOGLOBIN2019-11-23 19:31:00* Test Item Value Reference Range Interpretation [...] % 20-5 5 H Vitamin B12 and Blgymf1561-01-63 19:16:00* Test Item Value Reference Range Interpretation Comments Vitamin B12 (test code = 2132-9) 1988 pg/mL 213-816 H Folate (test code = 2284-8) 17.8 ng/mL >=7.0 Lab Interpretation (test code = 43426-6) Abnormal [facility] CenterVITAMIN B12 AND EOQPRA5349-05-21 19:16:00* Test Item Value Reference Range Interpretation Comments VITAMIN B12 (BEAKER) (test code = 774) 1988 pg/mL 213-816 H FOLATE (BEAKER) (test code = 362) 17.8 ng/mL >=7.0 GWDUJTNY8058-71-26 19:04:00* Test Item Value Reference Range Interpretation Comments FERRITIN (BEAKER) (test code = 361) 1523 ng/mL 5-275 H Lactate dehydrogenase (LDH)2019-01-18 18:27:00* Test Item Value Reference Range Interpretation Comments LDH (test code = 2532-0) 192 U/L 125-220 Lab Interpretation (test code = 75649-2) Normal [facility] CenterLACTATE DEHYDROGENASE (LDH)2019-01-18 18:27:00* Test Item Value Reference Range Interpretation Comments LACTATE DEHYDROGENASE (BEAKER) (test code = 635) 192 U/L 125-2 20 Hemoglobin and lubxjawsmr2509-40-21 11:26:00* Test Item Value Reference Range Interpretation Comments Hemoglobin (test code = 786-4) 7.5 13.7- 17.5 GM/DL L Hematocrit (test code = 4544-3) 23.0 % 40.1-51 L Lab Interpretation (test code = 48746-4) Abnormal [facility] CenterHEMOGLOBIN AND TNDPHOXSOO2591-06-33 11:26:00* Test Item Value Reference Range Interpretation [...] K/CU MM L MPV (test code = 61438-3) 10.1 fL 9.4-12.4 nRBC (test code = 413) 0 0- 0 /100 WBC Lab Interpretation (test code = 15858-1) [facility]normal [facility] CenterCBC (HEMOGRAM ONLY)2019-01-18 03:09:00* Test Item Value Reference [...] WBC 0 -0 Alpha fetoprotein (AFP), tumor dzpqne5858-65-78 17:58:00* Test Item Value Reference Range Interpretation Comments Alpha-Fetoprotein (test code = 1834-1) 2.7 ng/mL <10.0 Lab Interpretation (test code = 21410-6) Normal [facility] CenterALPHA FETOPROTEIN (AFP), TUMOR JOJYYK2147-27-15 17:58:00* Test Item Value Reference Range Interpretation Comments ALPHA-FETOPROTEIN (BEAKER) (test code = 1094) 2.7 ng/mL <10.0 BASIC METABOLIC [id number] 17:09:00* Test Item Value Reference Range Interpretation [...] FOR DIALYSIS PATIENTS. Specimen moderately ictericHEPATIC FUNCTION [id number] 17:08:00* Test Item Value Reference Range Interpretation [...] Specimen moderately ictericCBC W/PLT COUNT & AUTO FHOMPIVAFMGB0612-42-13 16:55:00* Test Item Value Reference Range Interpretation [...] code = 2801) 0 % 0-1 PROTHROMBIN TIME/IGI9417-12-60 16:52:00* Test Item Value Reference Range Interpretation [...] patie nts wiht mechanical heart valves.BASIC METABOLIC [id number] 07:35:00* Test Item Value Reference Range Interpretation [...] NOT APPLICABLE FOR DIALYSIS PATIENTS. Specimen markedly ojdpvabQHEXGWXMG3527-68-36 07:18:00* Test Item Value Reference Range Interpretation Comments MAGNESIUM (BEAKER) (test code = 627) 2.1 mg/dL 1.6-2.6 HEPATIC FUNCTION EPOYH4828-46-06 07:18:00* Test Item Value Reference Range Interpretation [...] 347) 16 U/L 6-55 Specimen markedly ictericPROTHROMBIN TIME/RFF0401-94-76 06:41:00* Test Item Value Reference Range Interpretation [...] = 413) 0 /100 WBC 0 -0 QDGSWRWCQ7464-93-97 05:08:00* Test Item Value Reference Range Interpretation Comments MAGNESIUM (BEAKER) (test code = 627) 2.0 mg/dL 1.6-2.6 HEPATIC FUNCTION [id number] 05:08:00* Test Item Value Reference Range Interpretation [...] 18 U/L 6-55 Specimen markedly ictericBASIC METABOLIC XWDPH0075-80-93 05:08:00* Test Item Value Reference Range Interpretation [...] APPLICABLE FOR DIALYSIS PATIENTS. Specimen markedly ictericPROTHROMBIN TIME/CDL0011-94-95 04:55:00* Test Item Value Reference Range Interpretation [...] = 413) 0 /100 WBC 0 -0 Xgtanxn4798-61-89 10:14:00* Test Item Value Reference Range Interpretation Comments Ethanol Lvl (test code = 5643-2) <10 <=10 mg/dL Lab Interpretation (test code = 78716-6) [facility]OL2019-[facility] 10:14:00* Test Item Value Reference Range Interpretation Comments ETHANOL (BEAKER) (test code = 400) < mg/dL <=10 BASIC METABOLIC [id number] 05:20:00* Test Item Value Reference Range Interpretation [...] FOR DIALYSIS PATIENTS. Specimen markedly ictericHEPATIC FUNCTION [id number] 05:19:00* Test Item Value Reference Range Interpretation [...] Specimen markedly ictericCBC W/PLT COUNT & AUTO VWBTJNFWVPUS7697-94-19 05:05:00 * Test Item Value Reference Range [...] = 2801) 0 % 0-1 BASIC METABOLIC [id number] 22:30:00* Test Item Value Reference Range Interpretation [...] FOR DIALYSIS PATIENTS. Specimen markedly ictericHEPATIC FUNCTION [id number] 22:26:00* Test Item Value Reference Range Interpretation [...] = 347) 15 U/L 6-55 Specimen markedly ictericPT/UPKO5928-17-25 22:22:00* Test Item Value Reference Range Interpretation [...] mechanical heart valves.CBC W/PLT COUNT & AUTO EFFCCRVWOMZR2992-01-52 22:19:00* Test Item Value Reference Range Interpretation [...] code = 2801) 1 % 0-1 BLOOD [id number] 11:00:00* Test Item Value Reference Range Interpretation Comments CULTURE (BEAKER) (test code = 1095) No growth in 5 days HEPATIC FUNCTION [id number] 09:42:00* Test Item Value Reference Range Interpretation [...] 347) 17 U/L 6-55 Specimen markedly ictericBLOOD GALWTTW3961-69-24 08:00:00* Test Item Value Reference Range Interpretation Comments CULTURE (BEAKER) (test code = 1095) No growth in 5 days BLOOD QHGQAXQ4704-11-92 08:00:00* Test Item Value Reference Range Interpretation Comments CULTURE (BEAKER) (test code = 1095) No growth in 5 days BLOOD UIPKCBA6437-57-48 08:00:00* Test Item Value Reference Range Interpretation Comments CULTURE (BEAKER) (test code = 1095) No growth in 5 days CNSVNKXEELP2249-76-14 05:03:00* Test Item Value Reference Range Interpretation Comments HAPTOGLOBIN (BEAKER) (test code = 366) < mg/dL 14-258 L BASIC METABOLIC [id number] 05:02:00* Test Item Value Reference Range Interpretation [...] NOT APPLICABLE FOR DIALYSIS PATIENTS. Specimen markedly yefkljfKFIYPSLFHL4464-29-86 04:44:00* Test Item Value Reference Range Interpretation Comments PHOSPHORUS (BEAKER) (test code = 604) 4.4 mg/dL 2.3-4.7 FUZVHTIMS4740-64-10 04:44:00* Test Item Value Reference Range Interpretation Comments MAGNESIUM (BEAKER) (test code = 627) 2.1 mg/dL 1.6-2.6 CBC W/PLT COUNT & AUTO XFEGLVQWZLGB0127-53-06 04:40:00* Test Item Value Reference Range Interpretation [...] = 2801) 0 % 0-1 Vancomycin level, ndmcfd2119-74-58 04:39:00* Test Item Value Reference Range Interpretation Comments Vancomycin Rm (test code = 74202-4) 16.4 ug/mL PHILLIP (test code = PHILLIP) Reference Range: No Normals [facility]VANCOMYCIN LEVEL, [id number] 04:39:00* Test Item Value Reference Range Interpretation Comments VANCOMYCIN RANDOM ([facility]) (test code = 523) 16.4 ug/mL Reference Range: No NormalsLACTATE DEHYDROGENASE (LDH)2018-12-25 13:28:00* Test Item Value Reference Range Interpretation Comments LACTATE DEHYDROGENASE ([facility]) (test code = 635) 242 U/L 125-2 20 H Venous doppler legs skmvmozql6489-23-54 12:50:27Ejection FractionSLEH ECHO HEARTLAB MKCKESSON CPACSRight Impression1. [...] YAN CORDERO [address]135 Age 38 Visit Number [id number] Gato nder Male Accession Number [id number] Date of 1980 Referring Audie Hoyt MD Room Number 7604 [facility] rosario Wing Coverer Cb Maki S Interpreting Karen Blackwell, Physician [...] in the common femoral, profundafemoral, femoral, popliteal, tool carrier ior tibial or peroneal veins.2. There is [...] cm/s ; Diameters are measured i n [facility] W/PLT COUNT & AUTO GCIMRCPWSLPR2939-65-10 04:43:00* Test Item Value Reference Range Interpretation [...] (test code = 2801) 0 % 0-1 WEDEKXAAMO4421-09-31 04:26:00* Test Item Value Reference Range Interpretation Comments PHOSPHORUS (BEAKER) (test code = 604) 4.7 mg/dL 2.3-4.7 VBFVNAHAM2508-46-85 04:26:00* Test Item Value Reference Range Interpretation Comments MAGNESIUM (BEAKER) (test code = 627) 2.3 mg/dL 1.6-2.6 HEPATIC FUNCTION [id number] 04:26:00* Test Item Value Reference Range Interpretation [...] 12 U/L 6-55 Specimen markedly ictericBASIC METABOLIC [id number] 04:26:00* Test Item Value Reference Range Interpretation [...] APPLICABLE FOR DIALYSIS PATIENTS. Specimen markedly ictericPROTHROMBIN TIME/[id number] 04:22:00* Test Item Value Reference Range Interpretation [...] patie nts wiht mechanical heart valves.BASIC METABOLIC [id number] 04:45:00* Test Item Value Reference Range Interpretation [...] NOT APPLICABLE FOR DIALYSIS PATIENTS. Specimen markedly ztkosmfVWJYADRJZE8423-83-28 04:39:00* Test Item Value Reference Range Interpretation Comments PHOSPHORUS (BEAKER) (test code = 604) 2.4 mg/dL 2.3-4.7 [id number] 04:39:00* Test Item Value Reference Range Interpretation Comments MAGNESIUM (BEAKER) (test code = 627) 2.0 mg/dL 1.6-2.6 CBC W/PLT COUNT & AUTO LHACLBXKMGRI7198-55-12 03:32:00* Test Item Value Reference Range Interpretation [...] code = 2801) 0 % 0-1 HEMODIALYSIS DCUDKQYCO7669-00-11 23:25:30SawaFlakita camacho RN 12/24/2018 12:23 AMVerified informed [...] Ag Latest Ref Range: Nonreactive Nonreactive [facility] (HEMOGRAM ONLY)2018-12-23 20:21:00* Test Item Value [...] /100 WBC 0 -0 HEPATITIS B SURFACE [id number] 05:28:00* Test Item Value Reference Range Interpretation Comments HEPATITIS B SURFACE ANTIGEN (2) (BEAKER) (test code = 2585) Nonreactive Nonreactive BASIC METABOLIC [id number] 05:28:00* Test Item Value Reference Range Interpretation [...] NOT APPLICABLE FOR DIALYSIS PATIENTS. Specimen markedly psbwkkpTAZUPDXVFB1995-58-82 05:23:00* Test Item Value Reference Range Interpretation Comments PHOSPHORUS (BEAKER) (test code = 604) 3.4 mg/dL 2.3-4.7 [id number] 05:23:00* Test Item Value Reference Range Interpretation Comments MAGNESIUM (BEAKER) (test code = 627) 2.1 mg/dL 1.6-2.6 VANCOMYCIN LEVEL, [id number] 05:15:00* Test Item Value Reference Range Interpretation Comments VANCOMYCIN RANDOM (BEAKER) (test code = 523) 36.4 ug/mL Reference Range: No NormalsCBC W/PLT COUNT & AUTO [id number] 04:21:00* Test Item Value Reference Range Interpretation [...] % 0-1 CT, EXTREMITY, LOWER WITHOUT CONTRAST, [id number] 03:00:00FINAL REPORT CT right lower extremity. CLINICAL [...] Signed: Richie Griffin Verified Date/Time: 12/23/2018 03:00:15 [facility] CenterVancomycin level, [id number] 17:08:00* Test Item Value Reference Range Interpretation Comments Vancomycin Tr (test code = 4092-3) 40.3 ug/mL 10-20 HH Lab Interpretation (test code = 04013-2) Abnormal [facility] CenterVANCOMYCIN LEVEL, [id number] 17:08:00* Test Item Value Reference Range Interpretation [...] 0 -0 RAD, CHEST, 1 VIEW, NON [id number] 08:35:00Reason for exam:->eval pulmonary congestionShould this be [...] Moura Verified Date/Time: 12/22/2018 08:35:05 Reading Location: [facility] C013V Neuro Reading Room Electronically signed by: OMERO MOURA M.D. on 2018 08:35 AM BASIC METABOLIC [id number] 05:18:00* Test Item Value Reference Range Interpretation [...] NOT APPLICABLE FOR DIALYSIS PATIENTS. Specimen markedly qjlgyfyDAFIRNDYV7103-62-42 05:08:00* Test Item Value Reference Range Interpretation Comments MAGNESIUM (BEAKER) (test code = 627) 2.2 mg/dL 1.6-2.6 Specimen slightly hemolyzed [id number] 05:08:00* Test Item Value Reference Range Interpretation Comments PHOSPHORUS (BEAKER) (test code = 604) 3.9 mg/dL 2.3-4.7 Specimen slightly hemolyzed LACTIC ACID, [id number] 04:40:00* Test Item Value Reference Range Interpretation Comments LACTATE BLOOD VENOUS (2) (BEAKER) (test code = 2872) 1.7 mmol/L 0 .5-2.2 Specimen slightly hemolyzed Specimen markedly bfqtsriEywjkrmovh5425-37-16 04:18:00* Test Item Value Reference Range Interpretation Comments Fibrinogen (test code = 3255-7) 195 mg/dl 225-434 L Lab Interpretation (test code = 36166-4) Abnormal [facility] HospitalAqrucaZIFADNYGFG3413-22-47 04:18:00* Test Item Value Reference Range Interpretation Comments FIBRINOGEN LEVEL (BEAKER) (test code = 658) 195 mg/dl 225-434 L CBC W/PLT COUNT & AUTO [id number] 04:10:00* Test Item Value Reference Range Interpretation [...] = 2801) 1 % 0-1 HEMOGLOBIN AND BBFSFUKERK2153-93-94 08:38:00* Test Item Value Reference Range Interpretation Comments HEMOGLOBIN (BEAKER) (test code = 410) 7.0 GM/DL 13.7-17.5 L HEMATOCRIT (BEAKER) (test code = 411) 20.7 % 40.1-51.0 L POC-Lactic Acid, Gdbnjy1327-67-88 04:05:00* Test Item Value Reference Range Interpretation Comments POC-Lactic Acid, Venous (test code = 2805) 1.6 mmol/L 0.9-1.7 TESTED AT [facility] [address] [facility] [address] Lab Interpretation (test code = 31817-3) Normal [facility] HospitalPOCT-LACTIC ACID, [id number] 04:05:00* Test Item Value Reference Range Interpretation Comments POC-LACTIC ACID, VENOUS (BEAKER) (test code = 2805) 1.6 mmol/L 0. 9-1.7 TESTED AT [facility] [address] [facility] [address] PAFITXUCJZRCL6258-13-16 03:40:00* Test Item Value Reference Range Interpretation Comments PROCALCITONIN (BEAKER) (test code = 3036) 1.26 ng/mL <0.05 H SEPSIS RISK (ng/mL)Low: 0.05-0.50Intermediate: 0.51-2.00High: > =2.00Anvaiut0068-33-33 03:37:00* Test Item Value Reference Range Interpretation Comments Ammonia (test code = 37190-2) 65 18- 72 mol/L Lab Interpretation (test code = 30469-4) Normal [facility] HospitalAMMONIA2019-10-26 03:37:00* Test Item Value Reference Range Interpretation Comments AMMONIA (BEAKER) (test code = 348) 65 mol/L 18-72 PT/[id number] 02:35:00* Test Item Value Reference Range Interpretation [...] patie nts wiht mechanical heart valves.COMPREHENSIVE METABOLIC [id number] 02:26:00* Test Item Value Reference Range Interpretation [...] APPLICABLE FOR DIALYSIS PATIENTS. Specimen markedly ictericTROPONIN [id number] 02:24:00* Test Item Value Reference Range Interpretation [...] acidosis, acute neurological disease, and per sistent tachyarrhythmia.YKMEKUZTG0581-68-30 02:21:00* Test Item Value Reference Range Interpretation Comments MAGNESIUM (BEAKER) (test code = 627) 2.1 mg/dL 1.6-2.6 Specimen slightly hemolyzed POCT-LACTIC ACID, [id number] 02:17:00* Test Item Value Reference Range Interpretation Comments POC-LACTIC ACID, VENOUS (BEAKER) (test code = 2805) 4.0 mmol/L 0. 9-1.7 H TESTED AT [facility] [address] [facility] [address] CBC W/PLT COUNT & AUTO JNWHGBQTTAJQ7667-10-41 02:09:00* Test Item Value Reference Range Interpretation [...] % 0-1 RAD, CHEST, 1 VIEW, NON [id number] 01:50:00Reason for exam:->chest painShould this be performed [...] 12/21/2018 01:50:02 , KNEE, COMPLETE (4 VIEWS), [id number] 01:49:00Reason for exam:->LACERATIONFINAL REPORT CLINICAL HISTORY: Trauma [...] Date/Time: 12/21/2018 01:49:02 knee complete 4 views pcjst7014-42-01 01:49:00Interface, External Ris In - 12/21/2018 1:51 [...] Katherine Reich MDReport Verified Date/Time: 12/21/2018 01:49:02 [facility] 2018-12-21 01:10:14HatfVíctor bruner MD 12/24/2018 4:23 [...] patient's condition and review of old charts. [facility] CenterMISCELLANEOUS LAB [id number] 07:44:00* Test Item Value Reference Range Interpretation Comments SCAN RESULT (test code = 6461705) Manual Pfeloqemulan0288-08-30 15:07:00* Test Item Value Reference Range Interpretation [...] Anisocytosis (test code = 961) 2+ moderate [place] Cells (test code = 474) 2+ moderate Poikilocytes (test code = 966) 1+ few Lab Interpretation (test code = 87673-3) Abnormal [facility] W/PLT COUNT & AUTO XYIPDUAQBZZG1695-92-88 15:07:00* Test Item Value Reference Range Interpretation [...] (BEAKER) (test code = 966) 1+ few VFRPVTLNMP7986-06-60 14:49:00* Test Item Value Reference Range Interpretation Comments PHOSPHORUS (BEAKER) (test code = 604) 2.4 mg/dL 2.3-4.7 ANG, TUNNELED CATHETER CJZQNPTOF9878-06-42 10:01:00Reason for exam:->please place tunnelled hd cath for patient on dialysisReason for exam:->patient will need ffp emergency medicine nurse practitioner to procedure due to high inr on [...] the patient's medical record by the nurse. Log Clerk: Regis Ortega MD. Database Tester: None. Approach: Right internal jugular vein Estimated [...] by blunt dissection. A 19 cm right [place] 2 catheter was brought through the [...] MDReport Verified Date/Time: 11/15/2018 10:01:43 Reading Location: [place] [id number] 8 Angio Body Reading Room Tunneled Catheter Kxifgorgh7047-35-99 10:01:00Interface, External Ris In - 11/15/2018 10:03 [...] the patient's medical record by the nurse. [facility] It Support Specialist: Regis Ortega MD. Database Tester: None. Approach: Right internal jugular vein Estimated [...] by blunt dissection. A 19 cm right [place] Duraflow 2 catheter was brought through the [...] MDReport Verified Date/Time: 11/15/2018 10:01:43 Reading Location: [address] Body [facility] 2018-11-15 07:46:00* Test Item Value [...] 46 U/L 6-55 Specimen markedly ictericBASIC METABOLIC [id number] 07:46:00* Test Item Value Reference Range Interpretation [...] Specimen markedly ictericCBC W/PLT COUNT & AUTO [id number] 06:23:00 * Test Item Value Reference Range [...] = 2801) 2 % 0-1 H PROTHROMBIN TIME/YNK3192-80-05 06:20:00* Test Item Value Reference Range Interpretation [...] for patie nts wiht mechanical heart valves.BLOOD [id number] 02:01:00* Test Item Value Reference Range Interpretation Comments CULTURE (BEAKER) (test code = 1095) No growth in 5 days BLOOD [id number] 02:01:00* Test Item Value Reference Range Interpretation Comments CULTURE (BEAKER) (test code = 1095) No growth in 5 days HEPATIC FUNCTION [id number] 08:23:00* Test Item Value Reference Range Interpretation [...] U/L 6-55 H Specimen markedly ictericBASIC METABOLIC [id number] 08:15:00* Test Item Value Reference Range Interpretation [...] APPLICABLE FOR DIALYSIS PATIENTS. Specimen markedly ictericPROTHROMBIN TIME/HFE1631-08-78 05:54:00* Test Item Value Reference Range Interpretation [...] mechanical heart valves.CBC W/PLT COUNT & AUTO [id number] 05:45:00* Test Item Value Reference Range Interpretation [...] = 2801) 2 % 0-1 H Tissue [id number] 14:34:00* Test Item Value Reference Range Interpretation Comments Case Report (test code = 104) Surgical Pathology Repor t Case: [id number] Authorizing Provider: Devyn Lantigua MD Collected: 11/10/2018 1325 Ordering Location: [address] Received: 11/11/2018 0818 Service Pathologist: Be Arenas MD Specimens: A) - Polyp, Colon - Sigmoid, sigmoid polyp bx B) - Cecum, cecum ulcer bx ADDENDUM (test code = 3381) m7dtkPFpVARgyOCjHyHxCIEoCNJqv8gkVZVxoWRoVlWeXzBhMjUbEkpjcZUhEGKrCqFox0dzk205zJZz k1xfSGKwAsU8nAGlMBAyrWKhG180l5dfh5duuzWqrNQ6XEOoQIN8UHlpfcCxpsU5JUsbdPZnEdI6OWzi kiBaNUskcuMimvQaWxy8NUKoZ924OWY9pSnii8rqSZ W5QRTcDNPrNlNvAy3unKSqQ523ZZXgXMHUMUDboXi7UBZghdHynoYkuRTUo322A999d7wqQBHmvyRjkK wFpskkz9naS839MAOskAKpowApVkQnTBZkoNMbaVI0UIBdKQ1anvhnBYdpVLvfAXPuryB3VJMyfTPyK0 NrTZBuHH0hkjecYWN1BWazPEJxKKE1SqJhBNDjb4Ya ztw4ZuEjxc9ugf59QAH0c2HgoDzcYPR1NTT1YyGiSq5rkWRzVNKuNY2iRoLguHNdPKKzox54nCazTEor shOykT6dBnFuDEEayWCqVPBuPN0vaQSrOKLtdL1vbwvhATJxFxBazfphVMAytTutgrPwFf6xzNloLOE7 YAxsG6rbpV0xRiL2HCwsI3crrX3qPUa4JPlwtQV1QE ZccJ1zFN0dpyjcm3ktZCflIHdyGFMgljD0wsX2PGSbaYLvC0CsyA0dPJWaLB4mckxas2ilGQK6BZfaHX AmEUS2GoCyDQOuk0Bmiyi3GsPcn8KzvWCdSPbeO76sl911XDWirqSxU0wqgTXlcualjBAxpofhOFcxzo V5DPOcGFBoWNgyIVYbSUEkJlPdcKWxXbRaAnDzyBea xFahQXmoYlHsIIEvOIxsU1dvFpRpTnWvCGUUkL68oy6sjAIjypGaEu0eGDuYGiKdBHiADmVoTSChNPFI ZKTfxPMzLs7cvXIiAH0fCRKzp7QfIUZlQCHfWKWgROmxnCu0XV6hgWWmtW== DIAGNOSIS (test code = 3220) q8gooISgSNFyn7arHIEprDMnViElUrXrRsPpLjukxCGtQDiztsAyVIihd5LfX7PzUfZzHPzzkeGjPUTh NrtkhcuiSKZpCSL9ybApGOPdLLkoXQSfMQpwYv7txTRicNhyJtAvBQOeu0mvuaIVfsaptBd2n4yiVMLt PcS2fEBxCKulU7kawwAspOTwUAHvLRb2tI85OYWydL 2xgPWsBXhvelStIlD4CDkmVOEvPmH8JMLcgVLxRUGtR9nvVBQbIMxaFJEaLVeloSMlSLE2zShzn3Y3dH YawXDrhVkjLwUnCrQkQYXEl6IgQFi8dMwnG2JwOSAySjC0zFKiXADaJLcdJAWnIGEhltD5dL68BVpjoo A4xEJqf5Zyq35ig599pF5irVAfMQI3QFJgYVKvhNZu RCJfPLX2AKAreAXfW4a7CvIpwMYkJ0O6GzZuoHFhX5J9AaEguXSrE5C8QtSqkCAxTMUvuDLuDd7ugUVj sYNlit3teh22NLS1n0VbmXneSAE4IKP6TwGmYh1cpQFmXODnLO0pCcNzePWoUVMblm32nYrvQTdgrsUi dK6sEhZaIDJbxIMgVJEoTM8sbKOcVKKcyY2dqhndET RpWjEvxjjxJTFdmVvzinLnAl8azCjdOYR9CCmkP4egmG7hVjN8XPyaC5gvuH7aGVt8VXtxhSY4MZCauG 8bVB0ugbywx9klVnUsQJ7moifzs6rdZdUsTQ2pylt4c1txGgPxYD3fgtuno6avTuSxPDgfWOWasdgdXE Yfd2UemkseKLHrp0EhA6CsaLnlC75cqUwcI59cDTEq oKuvwC7xtPnfmR9aVhNgQiBvGLejjJdgfIMzffurGMthipEjANsvtgtjSQArQTmrT1tdXbCeIGPcrKfp JAzja6CsNBQaULWyRhQcDWLEWNRJORYNM46LGVZpL31WE47dSW5YWUZgEDUPQZjMWYPUH71GWtkjQCMi SFlQRVJQTEFTVElDIFBPTFlQLlxwYXJccGFyIFBBUl NfWfJPLNTMZAHTKV3SC1taNn1JZMYDF7JGX7RGWFCXXRUDRjcwcWBmYZ2EOdUMXPOBGvfUBEYPHVgSYT PQI1pQBUwYVBbYSKmdTThCRZXYOGmBKiOXKnJcTeYCLL7SSdOYOHULQVQLOERUKtMXKotuMNIhWsAZKZ VOAhFgVl2JJPvZXT0HMT5UVEDmEKKZU4IIJDXQURrn F6GpYM1WAEZFYkBeR1PAI4nTV83WVjngJQIsWi1fUR2JCIqYFK6YDDHlA9GeZJ0KKZ8JOXhNKx6CFJOA NdOVRpwGWI1SGMINGpRUNN2GTO0ORB3wgXXfNQAYPEWJBBWHDb8FEVcUZOPXME2OTdUpTLFumcRMKG4Q Jj9DIYNQHwFoXg3EQYOABhTFAV4KCgpDRfAuYTMIFS lRIvnpIXWEVL6GEF8bSD0yUo4ITF4JCgztBJLfiJTzyWzmkhVyOGlyj0UfITzyTYEnJV2jrBvfPBJlIR 0nUVNoN0ccjC0tcyp4BhBbOJMcUhR6IXZswiG7Hle8PRAxFYgui1nzp9PgUWMcGGp6pVxbUhXaBETus3 irnvTePjOuOHClTUVmFIQmyWEcB289j6ugj8lotiDw kGD0MUOgNCK5QLwxbgMtzcE2PNnwoNVbByI4WOcfyeKmRFvdhxGqnjZqAsa9GPIaA155SIV2bPtug2vg XVQ6SWUgTOInBnKlNo7wpVKeL741BYRyNGVQCVVwzSg4MVBetsGxiyUkeDQVq205K234a7ojIHHucgNc lRrBodnrr7qyM122SUKpbPCkgeEbRsWqXAEumGRylB G9WUSfQB0ghaekHNxsYSdnYCXxmaJ2VYPqoQWyM1WuHBQwNV1jxuvaHGJ4YGznVZGyQNU5PyKbSGPxn0 Ltqkl2LdSvog9coq18BBN5w3AztMxnGKC3VSQ6KfCtMp6icAWhGEMsRG5pIzLbiUUcLESofv42xQyjGV jeGEM8PCPafgHcy3Qeb9clIrWkyuWjP9atI0SsWPQn VCIgLHJaWqBykaPfa6Hcg5EzqVAdpTh7n4npMNAwILPukBryv8myDLW4WFCxoCYyZ1orhO0tTUFmGK8z mpsfv7qjAQwtXJkjKSKmjTV7pqV4UBYcjPXeS9CowF6aGTPsANutYPPmovm8LlQlQi0wcJFagYooYPxi YmtwYWdlXHBnbmNvbnRccGduZGVjXHBsYWluXHBsYW fhQEUrJTOjAjSonAhckQExXoLaDfKokOebiEehQWhyDcUpCPPjBWizD7fuOyRtItPpFjg6WOWfwNPiNW MuRjr6HEUraJXvJNAIvUfnbJ8fUFGhvJgkzA7ydIB8GYKztdOhwZPIyX6sFNOJwT9rNjF7XlNcMbM9LM QyNDlccGFyfX0= COMMENT (test code = 3359) a2jarERvJMTgnNQoRuChOKMlZLEdo9itCHKibNEfIjZoNbTfPeYjUrcsbWAdVJNtWvIid1pjy400yABf f7twRADhKqF0bPWnHSHnsNSsH523y3ali1svjjUeeUE5UXEgHFK5QOjmbaYutrC4GYiskJNmYnZ2JPgc gjVoWBszezQdyxPpKra4JTTzP891HRP1cYfli4dcMB N8SSMdZLZxAiXcRl4uvRMkS601PDTjYPDMQPDvkJw2XXXtytSfhrQmrHTLd554T692o2dhITMimgAirP dUwlipc9phQ290FODnfETrxhZwHyQbNOCheECwaXQ3FXKcAC5ahfbhKsTxBM8dhvxyDeHgAC2btli9Mx ItHQ9xjpscYoUcRPcrMBUwptooJRPip0MsqnnlUN1e C5Fem3S5rA9gxULnGMIdsXFrDnWaYEPcug6svMAxOTizs8TmTTN5nnL0qGXszVTuMDSvLB97Dadhf1Ez RjzfUAW7GJKxrwOjp0Arn5ruEzGrqcNkL4pzV0AsRBSpGOIpHZHpZkQmnuJfj8Juw8KukOVcqPw5w3uj RJZxSGFiaGtyh9jsHWU0GOLvB4C0xCOwg3wmQBplPQ IewUD1czlcBUhdNRNzheU4uwizHChqNPCsvGW3dtmfDGopZVKrGdR6aozsWBceBNNlAKD3YIydb449VI W9ZBhuJkncZUyfYTBxhiAqzmUncXlmFJUsLKVcFYcvMEWnENzeTOBmSYDfFgPrmRuojKgnpI6pVeYpIi TdPRfdXV5nZZChN6lkaYKdBGWbNWDeB9eoVhIjwA8s pRvdMSzkpxDfGQODNwKvCtavMD8cfA3mgUymdN2qcKXehKHadFUnoSIwgNDwNCPkkgDeod9pSCQfxdWp bH1ohyWYZTKdXR1arbC5ajA7OUS9iUFrnVywiJtbfHEnlR0wnAytkVguegO6pmNaWVGxc7QunEl3LRMk a5BcW4DcBNYou2AkdMq4VFINPHPlwLupJOMlLENXMG FtK2Y3DZTet8y1mYUuLYZrI9IklSEmPAOnTSCaKXufMI4fMDXuFTYbKR83KXJmHVC6eCLcd3Iej26qb1 LgG6PkHLRrkiDdK2G7NkJBnYYrlL4xVDZcaKKunuPuIOTuhaIkIOJxNNGuPGurPD8vGR1qgfQaj9zdM9 nhLU5nLAxnsYUse0CpIQ9iqIlfwMCaKZAnKDLcF0Imk8BacFiyqTdbaZBaVYYxyv0= CPT Code(s) (test code = 3357) s0pfvSGjSAEqpDIuIzGmNSXxWPItr6ekAQLorLBnUqJoVbJfZxSkAxpdsKCfSYJxDzSrc7izg999rAIo w6pfIWJwSiM6oJNqSMYspROeO264j1wcr7xxngEtpFR2UHDnVYA0PFciujPvtzA3LQikfMMqToG1VWls uwNhTBwqvoWuibXnUli7FKJcT337OUR5vZtgl1bqFI E7SUAgLDUkDwIeFk5tzNBjN072TYKaGRWXZUOkiEp7XOJmwkOcncWxeXXOp178N869n9ivHQEepwApgP kFqowwn1vdU053XZShcMGmuxSsWdXxJVShrXRvtDU2FOKgJN0ppamkAmNaCW4wjvxjDaDmIE8zbzz7Ng QhWJ0glglvYsHgKNqtKVIovddtXVVdo6AbelbhMN0g V8Luu7L2sF7kaIByUDRibFKtKpCeGTDvea1gvKImKRkvd6WlMQP6dcR1hLButNPkLPHeWU91Vcqpq9Ya YwsxZLO2UTObonNse9Atb7lnTvJpsmLhC0orJ8VeKSSxXGYdCKXqPmEsnzNwm2Iek0KqzNDesYa3z1xm YNLwKBMyxItel7dwPKA7AYGeE8E1xCQgb1exXWztNI RojME9ckzoXRxfWMCxrnM9omkqLGofUJRgqDR7pjapXQhcEMEwHyM7lxecUKixIROzCNW6ZIvap544VW P4CXuvRwvhSPtwUEZhpvOulsMzrDsfIGQiNDCqXHbuHZXdJSieBVGtMIWcMvMleGqnqYqigV4vQxFiGs CiRRagPB1iNCOcE1tqmTDhLBJpKHXmU3hqDhQrsG8e lNymUSyculDrIZf7HtU4mNRtKLo2XpWvGBQ7NXO4NLf9MXUhzz3= CLINICAL HISTORY (test code = 3356) q9vuxOQuZMEjjZBrWrWqAKLmIIVjd8oyNYSucKVjSlGsXvGiCmClExldfLPlTKWeXlRdm9sus300oKJt d3bfBIItQkH4wJGzZQVbgSSkJ280b6mla3xrqqRlvLL1XNGuUHB0QHidcaKmurS1CHejnGBaXbT6TAda byCnCKmpcxDsvhSqYmy8VBUdH393TAO5rGpep1zeBM F2LXExLKBiCrDxRl9qqSWvW178YYVdOSEAAVUdmVx1RVGeecZkuwVvhAMGz504C721o4bvGDJoedKdyQ sOxooju2qxE911YBVtjGNdpkVbXfFsJTJbeCNjyXE7AWRjNJ0bxcygOjIyWF1rlukpRdKmLN2ujqy9No BsHE2nlxbrKsEiOGghHSNfrviwGHJyk2KnhecuXH4t L3Ebc8C6xU9qkYEyKFLsiCZbScSzSTYyjf3hiIWfNFvxn1NhIZG0osI3dAKndOAuOBVvUH06Pcwyp8Mp YarsYAG7IOPgxiCgn3Tta1ktFmEjnuBcG3ruJ6AmIISjFPJvQUWbYoQfwxPui0Eby0WpyBIhjQa7s3ef DNQfLGAcyGvae4rpUBH4TDUwL3Q2aLHns1koNQpqUQ DxrYC8gutbQXcaVGIdluW7wlmcSAfoKZCnsZI1zquyCOckGTEcSoX8cweeVTvlNBKkSPT8IElql647AM E3LKnaBbhuPIowCBApnwLarqQhnUeyPMRoWKAsXIxrKCYsETghGGWaVFCsOyBkaXdswBlhtW7iRwFaPo ZaLKanOD8qXBOdY2fxgZAaABHqULAoL8myAbKluD 8wxFljMVazddTvVQAgqR8xMUSrzWpcupTzyXVhjR== SPECIMEN SOURCE (test code = 3377) q8kykDVzLIKvyLFiDvIqFKImPGDul8itJZMqiQXdPaVrQePdCkMrTorapGSqTAHoWjYwp5pnl607lMQw i6kmENFjSeG9bZZiJSZdtYSxW534c0hvm6tglzEylAO8POHwAPZ6ZGwezjKrwnL5RXojiPNnHsS4AIqs xrUfTLyoiqLdadIhSwv0ZYUtL382AFU9aAzsj8esHT K8EEXdDLKrCtCsDg5bqTTtM804QPXnHLJXTHUycVo3USRykpZinxZxrPHIh564Y016n2rbMDQamiNiyL sAhdznf8egV958CTXngFKhwpExIdUzJLAykLNiuGL7MZSxKZ0iculhNxXqYQ7anyrjInAwKL0dgvx9Zf CwJE7gnxfkAmDaBBakJNDlfqguUPSln5SoplmbOF0a F2Wjo2Q9dQ6ykONrOYFvoJOoNdQmPRKycj0eqWVvZJqtr2ZhSWE7kxP5nIManYVwXZGxPU71Gjwvd1Mn YpgeJRJ0TEOgzrNjk6Vwq8viEsJdjxEeT9ppL2FyOWUzRXZwEZRrEuIsylDzq6Znk3HbmPOprJj0k9mt OJBzGEKjyElxd7wfZQS7COWrF5J1zYFap7ysIBasXL VhoUD5zpbsXHckVATgqmK6uaeaORmiMARtiUN3zcsiUYnqNOPoYiY2rclfVLudNVDySGL5HTexi470YE T8PZjeWexfLFodAFNpkgVrtmAoxIiaJKMzHLLhYVixFHAaRMykMPKfOMBdQpFadLfkzQupfW6hKuFkOg IvLYlyGS5zZRVtC5eoySXyPHShWNLnV5enWtJktD6m iIdqYZkfkqVbZVEvWMAiG91zyGUwnE9qoDXyCnvrlPO1XrWHGeIRKDY8mPK0wQHfuaYozN7rm9txUCVt cn0= GROSS DESCRIPTION (test code = 3366) h0gdoOGzQZVtyEUzEnYiFEMdXZNxi8hdJNBzwEDaZvUvVnBmJvKuGewyrPObGLBpLqDae7oes887tIEq s2jcBPKhLcC7gWKxRGQwbYTxB549g7xyu4msunEneTE0HWVrCUA8YCvhxsYwzdB5DHfijTGmEsD0RCim vwEmUJfmuwTzuuRiFpd4QCBoV062RDU4lJfrw2iqAT E3HFAvVQQeEsBgLs4ttQJtZ976YUVqCYZCTPEjqPp2IPJghdPmzuBbvVXTf989S047k7mqOINrtyOqaV fSvyidg5giY045PYCrmPHeqaVpRlYgUEPfdPRlvIQ0YVHbAD0ujyczAkHwRD5ghlugSvUpVK1onwm8Lu NyUV7shmpjOdUbCTukIKTgxxynMLSlu7XvrcdsZM1x N6Mbd7A5jB1cvQGoSCFlkNHkAbZnGHJttd0iiHYpDAppw2FiDMX3nrO3mQOvlTNfEUZtFU58Qtscj5Cn KqgpAQX1QWDctzOjw5Qeg2bmRmJzobFpX3wzC8CiKXOcOHFrLPQiChEfpcHgi9Lzw5ZgkGThwZl0s4ld XUEsVFGaxAqmo2mqAYM4QVEyA3X8rMCvs1xcDCpwWX LcrUP1rmtfRNtjTQLmmrB4igpvTVtaGXEnpYJ5ccjyNCgeYYTvAoA0grvwCDcpDVAaXQW6KSsur568OL D3JLgkIqvwBGrtZAMnzkJszgZwwGvgTQXfLWZcZMaaBYNpJOliLUEcPMXfTqKczJzoyDypcV7sKvDiSy BtUNkjUK0jPUErY2xgxTNxNMDhGHBzH3kfLlZwlQ5i zPnaIPbhtaDaBOTkteApYV9wOfLeWIt2CBFqaC1eBg9zjVBwnA1lpFXjXOsdFMH5pUYqWPAnNFXkFOIu JM33L9OgfiGuEJoqQZCkGYFliQ5jIK04yVUbmqTxrlQxXiGlsRvbUDPwf9xqll0mfBhaz2cdJbOswuJg HFUeDmIylBW9KB6kz95lhDD9kUUfnCOoQjIuW83fra EcXRippONzRRlnBYT1Dl4pcRUePRFyitF2r8PrLKoqOZGnVuweNAVacPCoCQLqehSkKk3qNyJtHVd4TG NlxW3bTm0ztHXzyE7vpOIjCTnpGWD3jYChQISoPTTdTDHaNE12X8ZxdqWtNVvuUWVhYZRwwJ1lSR52pA QakrSqlqAqPzBiY7LlKxSsymZbTt27azUzzcTeJ1Tc GBTpoGBzPYDlHqCygBxih6WcQOMxJFcyQO23akItGT3llI4tRBGyUW1dLwCbX93zHJjyaHHoHLTzFGCw mXDtqCQ9GHNiaN6zaH54pqEhmyNTYV3iC7mhBOslIVQriy3= MICROSCOPIC DESCRIPTION (test code = 3371) m2dofUKpBLDoyHMvIcVoYYWfOJTwi4sxMDJdnVIkUoCiYqHkRkLiXgmpqCLxGTOpWuKox9vzm619rJVf t8zbRTQpTnM3uWRmUAAvnUUoC833w0bvy9rwfwFmaCR4HZXiOZI6OQofgpDcxjV8HMjuiKYsLvW9VIbg scCvZIclghByozZwWam0PTVhW360GAX9pYhwy5gvRK Q9ZBOvJZHxDbEwZh3ejJTgX999PTZbOQFOGXHcuHr9MPOlrgEzboKwbKKUu090B195k1nyGECkriIcuA vSrqmkd1xzE472ZYRtxZCwoaGdDdRcYBVweMAdvOF0VOHuMK8ttfhrAmVfIO0amheeIlFwVY7jgwq6Yo ViRR2qihtiMtYqIGrjXCJfgfbgRZQic5ToepcuDQ5u E0Jaa4A1pE7bqIWmMDMaoAJwLbVcFKOhxn9nqEFqGVrei4EgRLR0qsA6fELwqSRpSAUqDU19Nywpw0Jv HlgoACM7WGGoquYwt0Zom6fwMvIebnVbO9hlQ0JnEBBwFNUyRMBnErVuagIdl7Cjf0CesDPkwUo9l2yz ONYoLPGknKeqe6fzIIB9YNRgB5Q9zHIlo5nmNKjdKR DvlZO3wpdnSXxqGYAwrvZ9yzcjYUvdEUNigSX5tevoKMitHHWuFdC9ifseJZjhCORpOYB1CBavy640GG A5SRpbScvvHLkmLAYztvJtoxQrdIbxQABbQYPmHBfsNUDkNBcySCVpQAQyItOkaCszvLogoE6vJrAkCe EnPGhkPY4oVUEsN4gwrDUbIHJaAHObQ2vuBcTonF7iuWapVGuvdqZjDBNguzDler7yRG4tLPNwfd0= SPECIAL STUDIES (test code = 3376) [file] PqkHbsxY3eYwKiEyNxXTwwRXG7 [facility] [id number] 14:34:00Surgical Pathology Report Case: [id number] Authorizing Provider: Devyn Lantigua MD Collected: 11/10/2018 1325 Ordering Location: [address] Received: 11/11/2018 0818 Service Pathologist: Be [...] TO FOLLOW. Signing Pathologist Direct Phone Line: [phone] s igned by Be Arenas MD on [...] is no morphologic or immunophenotypic evidence of lymphoma.[id number], 08353, 8834 2b1Wambf polyps A. Sigmoid polyp biopsy. B. Cecum ulcer biopsy Part A. Received in formalin labeled with the patient's name, accession number and "polyp, colon- sigmoid" is a 0.2 cm guajardo soft tissue [...] HSV1, HSV2, CMV, CD20, CD3, CD5, CYCLIN D7Gcjdigh Slides Examined: In-house known positive controls were evaluated along with the test tissue. These control slides run a longside of the patients sample show appropriate staining. Internal positive and negative controls when available are evaluated Immunohistochemistry technical t esting was performed at [facility], Pathology Laboratory w here it was developed [...] to perform high complexity clinical lab oratory testing.[id number] 08:34:00* Test Item Value Reference Range Interpretation Comments PHOSPHORUS (BEAKER) (test code = 604) 2.3 mg/dL 2.3-4.7 HEMOGLOBIN AND [id number] 08:03:00* Test Item Value Reference Range Interpretation Comments HEMOGLOBIN (BEAKER) (test code = 410) 6.4 GM/DL 13.7-17.5 L HEMATOCRIT (BEAKER) (test code = 411) 19.1 % 40.1-51.0 L BASIC METABOLIC [id number] 06:42:00* Test Item Value Reference Range Interpretation [...] FOR DIALYSIS PATIENTS. Specimen markedly ictericHEPATIC FUNCTION [id number] 06:41:00* Test Item Value Reference Range Interpretation [...] Specimen markedly ictericCBC W/PLT COUNT & AUTO [id number] 06:36:00 * Test Item Value Reference Range [...] code = 2801) 1 % 0-1 PROTHROMBIN TIME/[id number] 06:29:00* Test Item Value Reference Range Interpretation [...] nts wiht mechanical heart valves.RAD, CHEST, 2 [id number] 23:58:00Reason for exam:->coughFINAL REPORT Chest, two views. [...] MDReport Verified Date/Time: 11/12/2018 23:58:30 Reading Location: [facility] B1 C013W Consult Reading Room chest 2 [id number] 23:58:00Interface, External Ris In - 11/13/2018 12:00 [...] Verified Date/Time: 11/12/2018 23:58:30 Readi ng Location: [facility] B1 C013W Consult Reading Room [facility] [id number] 04:58:00* Test Item Value Reference Range Interpretation [...] U/L 6-55 H Specimen markedly ictericBASIC METABOLIC [id number] 04:50:00* Test Item Value Reference Range Interpretation [...] Specimen markedly ictericCBC W/PLT COUNT & AUTO [id number] 04:33:00 * Test Item Value Reference Range [...] code = 2801) 1 % 0-1 PROTHROMBIN TIME/[id number] 04:25:00* Test Item Value Reference Range Interpretation [...] patie nts wiht mechanical heart valves.Creatinine, random [id number] 03:53:00* Test Item Value Reference Range Interpretation Comments Creatinine, Ur (test code = 2161-8) 225.8 mg/dL PHILLIP (test code = PHILLIP) Reference Range: No Normals [facility]OM [id number] 03:53:00* Test Item Value Reference Range Interpretation Comments CREATININE URINE (BEAKER) (test code = 375) 225.8 mg/dL Reference Range: No NormalsProtein, random [id number] 03:50:00* Test Item Value Reference Range Interpretation Comments Protein, Urine (test code = 2888-6) 122 mg/dL 0-14 H Lab Interpretation (test code = 96100-9) Abnormal [facility]PROTEIN, RANDOM [id number] 03:50:00* Test Item Value Reference Range Interpretation Comments PROTEIN, URINE (BEAKER) (test code = 1569) 122 mg/dL 0-14 H CBC W/PLT COUNT & AUTO [id number] 08:10:00* Test Item Value Reference Range Interpretation [...] U/L 6-55 H Specimen markedly ictericBASIC METABOLIC [id number] 06:17:00* Test Item Value Reference Range Interpretation [...] APPLICABLE FOR DIALYSIS PATIENTS. Specimen markedly ictericPROTHROMBIN TIME/[id number] 05:07:00* Test Item Value Reference Range Interpretation [...] patie nts wiht mechanical heart valves.HEPATIC FUNCTION [id number] 06:03:00* Test Item Value Reference Range Interpretation [...] U/L 6-55 H Specimen markedly ictericBASIC METABOLIC [id number] 05:52:00* Test Item Value Reference Range Interpretation [...] Specimen markedly ictericCBC W/PLT COUNT & AUTO [id number] 05:17:00 * Test Item Value Reference Range [...] code = 2801) 1 % 0-1 PROTHROMBIN TIME/[id number] 05:07:00* Test Item Value Reference Range Interpretation [...] for patie nts wiht mechanical heart valves.BLOOD [id number] 02:01:00* Test Item Value Reference Range Interpretation Comments CULTURE (BEAKER) (test code = 1095) No growth in 5 days BLOOD [id number] 02:01:00* Test Item Value Reference Range Interpretation Comments CULTURE (BEAKER) (test code = 1095) No growth in 5 days URINALYSIS W/ REFLEX URINE [id number] 00:30:00* Test Item Value Reference Range Interpretation [...] /LPF SOURCE(BEAKER) (test code = 2795) HEMODIALYSIS [id number] 15:25:00Melissa Lo RN 11/09/2018 4:53 PMProcedure fairly [...] 98.3 F (36.8 C) SpO2: 95% [facility] 2018-11-09 11:29:00* Test Item Value Reference Range Interpretation Comments PHOSPHORUS (BEAKER) (test code = 604) 2.3 mg/dL 2.3-4.7 HEPATIC FUNCTION [id number] 04:57:00* Test Item Value Reference Range Interpretation [...] Specimen markedly ictericCBC W/PLT COUNT & AUTO [id number] 04:42:00 * Test Item Value Reference Range [...] 2801) 2 % 0-1 H BASIC METABOLIC [id number] 04:41:00* Test Item Value Reference Range Interpretation [...] APPLICABLE FOR DIALYSIS PATIENTS. Specimen markedly ictericPROTHROMBIN TIME/[id number] 04:34:00* Test Item Value Reference Range Interpretation [...] patie nts wiht mechanical heart valves.HEPATIC FUNCTION [id number] 17:22:00* Test Item Value Reference Range Interpretation [...] U/L 6-55 H Specimen markedly icteric; notified #[id number] of correctionCandida antigen with reflex to [id number] 11:29:00* Test Item Value Reference Range Interpretation Comments Yari Antigen (test code = 87993-0) Positive [facility]CAND[facility] ANTIGEN [id number] 11:29:00* Test Item Value Reference Range Interpretation Comments Yari Antigen Titer (test code = 9501-8) 1:2 [facility] ANTIGEN WITH REFLEX TO [id number] 11:29:00* Test Item Value Reference Range Interpretation Comments YARI ANTIGEN (BEAKER) (test code = 1782) Positive YARI ANTIGEN [id number] 11:29:00* Test Item Value Reference Range Interpretation Comments YARI ANTIGEN TITER (BEAKER) (test code = 737) :2 CT, CHEST, WITH HIGH RESOLUTION, INTERSTITAL LUNG [id number] 11:29:00 Reason for exam:->liver transplant evaluationFINAL REPORT [...] [place] Verified Date/Time: 11/08/2018 11:29:31 Reading Location: [address] Consult Reading Room chest with high resolution/[id number] 11:29:00 Interface, External Ris In - 11/08/2018 11:31 AM CDTFINAL REPORT PATIENT ID: [id number] of the chest, without contrast Clinical [...] Verified Da te/Time: 11/08/2018 11:29:31 Reading Location: [address] Ortho Consult Readi Room [facility] CenterMR, ABDOMEN, [id number] 08:24:00FINAL REPORT MRI of the abdomen. CLINICAL [...] rt Verified Date/Time: 11/08/2018 08:24:53 Reading Location: [facility] Reading Room - [place] [address] [address] [id number] 07:36:00* Test Item Value Reference Range Interpretation Comments CULTURE (BEAKER) (test code = 1095) No growth BASIC METABOLIC [id number] 06:13:00* Test Item Value Reference Range Interpretation [...] NOT APPLICABLE FOR DIALYSIS PATIENTS. Specimen markedly csoffspCDKTHMEULX2579-33-69 06:07:00* Test Item Value Reference Range Interpretation Comments PHOSPHORUS (BEAKER) (test code = 604) 2.8 mg/dL 2.3-4.7 [id number] 06:07:00* Test Item Value Reference Range Interpretation Comments MAGNESIUM (BEAKER) (test code = 627) 2.2 mg/dL 1.6-2.6 PROTHROMBIN TIME/[id number] 05:21:00* Test Item Value Reference Range Interpretation [...] mechanical heart valves.CBC W/PLT COUNT & AUTO [id number] 05:03:00* Test Item Value Reference Range Interpretation [...] % 0-1 CBC W/PLT COUNT & AUTO [id number] 13:51:00* Test Item Value Reference Range Interpretation [...] WIT TOXIC GRANU LATIONS PRESENT BASIC METABOLIC [id number] 07:53:00* Test Item Value Reference Range Interpretation [...] FOR DIALYSIS PATIENTS. Specimen markedly ictericHEPATIC FUNCTION [id number] 07:53:00* Test Item Value Reference Range Interpretation [...] 80 U/L 6-55 H Specimen markedly ictericPROTHROMBIN TIME/[id number] 07:12:00* Test Item Value Reference Range Interpretation [...] mechanical heart valves.CBC W/PLT COUNT & AUTO [id number] 08:15:00* Test Item Value Reference Range Interpretation [...] U/L 6-55 H Specimen markedly ictericBASIC METABOLIC [id number] 04:58:00* Test Item Value Reference Range Interpretation [...] APPLICABLE FOR DIALYSIS PATIENTS. Specimen markedly ictericPROTHROMBIN TIME/[id number] 04:37:00* Test Item Value Reference Range Interpretation [...] for patie nts wiht mechanical heart valves.Urinalysis w/Gqnbysllwha9320-99-18 22:58:00* Test Item Value Reference Range Interpretation Comments Color, UA (test code = 5778-6) Dark Yellow Clarity, UA (test code = 5767-9) Clear Specific [place], UA (test code = 5811-5) 1.012 1.001-1.035 pH, UA (test code = 5803-2) 6.0 5.0-8.0 Protein, UA (test code = 28631-0) 20 mg/dL Negative A Glucose, UA (test code = 365) Negative Negative Ketones, UA (test code = 2514-8) Negative Negative Bilirubin, UA (test code = 72805-9) Positive Negative A Blood, UA (test code = 42683-2) Negative Negative Nitrite, UA (test code = 5802-4) Negative Negative Leukocytes, UA (test code = 5799-2) Negative Negative Urobilinogen, UA (test code = 63106-2) 3.0 mg/dL 0.2-1 H RBC, UA (test code = 01908-0) 0 /HPF WBC, UA (test code = 5821-4) 1 /HPF Bacteria, UA (test code = 24817-2) Occasional Mucus (test code = 8247-9) Rare Specimen Source (test code = 2795) Urine, Clean Catch Lab Interpretation (test code = 83739-8) Abnormal [facility]/ [id number] 22:58:00* Test Item Value Reference Range Interpretation [...] 2795) Urine, Clean Catch Hepatitis B surface [id number] 20:23:00* Test Item Value Reference Range Interpretation Comments Hep B S Ab (test code = 84599-3) <8.0 <8.0 mIU/mL Lab Interpretation (test code = 40091-5) Normal [facility]HEP[facility] SURFACE [id number] 20:23:00* Test Item Value Reference Range Interpretation Comments HEPATITIS B SURFACE ANTIBODY (BEAKER) (test code = 647) < mIU/mL <8.0 Hepatitis B core antibody, [id number] 20:22:00* Test Item Value Reference Range Interpretation Comments Hep B Core Total Ab (test code = 84201-2) Nonreactive Nonreactive Lab Interpretation (test code = 37365-0) Normal [facility] [id number] 20:22:00* Test Item Value Reference Range Interpretation Comments HEPATITIS B SURFACE ANTIGEN (2) ([facility]) (test code = 2585) Nonreactive Nonreactive HEPATITIS B CORE ANTIBODY, [id number] 20:22:00* Test Item Value Reference Range Interpretation Comments HEPATITIS B CORE TOTAL ANTIBODY (BEAKER) (test code = 497) N onreactive Nonreactive RAD, CHEST, 1 VIEW, NON [id number] 20:17:00Reason for exam:->pleuritic chest painShould this be [...] Date/Time: 11/05/2018 20:17:29 , NON-TUNNELED DIALYSIS CATH, [id number] 19:49:00Reason for exam:->need dialysisFINAL REPORT PROCEDURE: Non-tunneled [...] site was prepared and draped using all [place] ents of maximal sterile barrier technique including [...] sonographically evaluated and determined to be patent. [place] l time ultrasound was used to visualize [...] was applied.Catheter placed: Schon XLCathete r size ([place]): 14Catheter length (cm): 15Catheter flush: Heparin (1000 [...] Verified Date/Fernando e: 11/05/2018 19:49:40 Reading Location: [facility] P048 Angio Body Reading Room non- tunneled dialysis catheter [id number] 19:49:00Interface, External Ris In - 11/05/2018 7:51 [...] time-out was performed prior to the procedure.Preparation (IN PS): The site was prepared and draped [...] ressing was applied.Catheter placed: Schon XLCatheter size (S[place] Arabian): 14Catheter length (cm): 15Catheter flush: Heparin (1000 [...] Verified Date/Time: 11/05/2018 19:49:40 Read ing Location: [place] [address] Angio Body Reading Room [facility] W/PLT COUNT & AUTO [id number] 10:46:00* Test Item Value Reference Range Interpretation [...] comment: User comments: Slide comments: BASIC METABOLIC JOGBG1978 06:48:00* Test Item Value Reference Range Interpretation [...] FOR DIALYSIS PATIENTS. Specimen markedly ictericHEPATIC FUNCTION [id number] 06:48:00* Test Item Value Reference Range Interpretation [...] 347) 82 U/L 6-55 H Specimen markedly [id number] 06:44:00* Test Item Value Reference Range Interpretation Comments PHOSPHORUS (BEAKER) (test code = 604) 3.7 mg/dL 2.3-4.7 [id number] 06:44:00* Test Item Value Reference Range Interpretation Comments MAGNESIUM (BEAKER) (test code = 627) 2.5 mg/dL 1.6-2.6 PT/[id number] 05:49:00* Test Item Value Reference Range Interpretation [...] for patie nts wiht mechanical heart valves.PROTHROMBIN TIME/[id number] 05:48:00* Test Item Value Reference Range Interpretation [...] wiht mechanical heart valves.URINALYSIS W/ REFLEX URINE [id number] 20:41:00* Test Item Value Reference Range Interpretation [...] 1574) Rare SOURCE(BEAKER) (test code = 2795) [id number] 14:10:00* Test Item Value Reference Range Interpretation Comments AMMONIA (BEAKER) (test code = 348) 101 mol/L 18-72 H CBC W/PLT COUNT & AUTO [id number] 10:57:00* Test Item Value Reference Range Interpretation [...] (BEAKER) (test code = 474) 1+ few ZAJZANPPQ6801-04-63 10:35:00* Test Item Value Reference Range Interpretation Comments MAGNESIUM (BEAKER) (test code = 627) 2.4 mg/dL 1.6-2.6 HEPATIC FUNCTION [id number] 05:15:00* Test Item Value Reference Range Interpretation [...] U/L 6-55 H Specimen markedly ictericBASIC METABOLIC [id number] 05:14:00* Test Item Value Reference Range Interpretation [...] APPLICABLE FOR DIALYSIS PATIENTS. Specimen markedly ictericPROTHROMBIN TIME/[id number] 04:51:00* Test Item Value Reference Range Interpretation [...] patie nts wiht mechanical heart valves.HEPATIC FUNCTION [id number] 06:30:00* Test Item Value Reference Range Interpretation [...] 52 U/L 6-55 Specimen markedly ictericBASIC METABOLIC [id number] 06:30:00* Test Item Value Reference Range Interpretation [...] APPLICABLE FOR DIALYSIS PATIENTS. Specimen markedly ictericPROTHROMBIN TIME/[id number] 05:42:00* Test Item Value Reference Range Interpretation [...] mechanical heart valves.CBC W/PLT COUNT & AUTO [id number] 05:10:00* Test Item Value Reference Range Interpretation [...] = 2801) 1 % 0-1 BASIC METABOLIC [id number] 07:07:00* Test Item Value Reference Range Interpretation [...] FOR DIALYSIS PATIENTS. Specimen markedly ictericHEPATIC FUNCTION [id number] 07:06:00* Test Item Value Reference Range Interpretation [...] 347) 49 U/L 6-55 Specimen markedly ictericPROTHROMBIN TIME/[id number] 06:21:00* Test Item Value Reference Range Interpretation [...] mechanical heart valves.CBC W/PLT COUNT & AUTO [id number] 06:04:00* Test Item Value Reference Range Interpretation [...] code = 2801) 1 % 0-1 BLOOD [id number] 20:01:00* Test Item Value Reference Range Interpretation Comments CULTURE (BEAKER) (test code = 1095) No growth in 5 days BLOOD [id number] 20:01:00* Test Item Value Reference Range Interpretation Comments CULTURE (BEAKER) (test code = 1095) No growth in 5 days BASIC METABOLIC [id number] 08:05:00* Test Item Value Reference Range Interpretation [...] FOR DIALYSIS PATIENTS. Specimen markedly ictericHEPATIC FUNCTION [id number] 08:04:00* Test Item Value Reference Range Interpretation [...] 347) 37 U/L 6-55 Specimen markedly ictericPROTHROMBIN TIME/[id number] 06:14:00* Test Item Value Reference Range Interpretation [...] mechanical heart valves.CBC W/PLT COUNT & AUTO [id number] 06:13:00* Test Item Value Reference Range Interpretation [...] = 2801) 1 % 0-1 HEPATIC FUNCTION [id number] 06:59:00* Test Item Value Reference Range Interpretation [...] 35 U/L 6-55 Specimen markedly ictericBASIC METABOLIC [id number] 06:56:00* Test Item Value Reference Range Interpretation [...] Specimen markedly ictericCBC W/PLT COUNT & AUTO [id number] 05:54:00 * Test Item Value Reference Range [...] code = 2801) 1 % 0-1 PROTHROMBIN TIME/[id number] 05:46:00* Test Item Value Reference Range Interpretation [...] patie nts wiht mechanical heart valves.Sodium, random [id number] 23:21:00* Test Item Value Reference Range Interpretation Comments Sodium Urine (test code = 2955-3) 34 meq/L PHILLIP (test code = PHILLIP) Reference Range: No Normals [facility] [id number] 23:21:00* Test Item Value Reference Range Interpretation Comments SODIUM URINE (BEAKER) (test code = 243) 34 meq/L Reference Range: No NormalsBODY FLUID CULTURE + GRAM [id number] 10:20:00* Test Item Value Reference Range Interpretation Comments CULTURE (BEAKER) (test code = 1095) No growth GRAM STAIN RESULT (BEAKER) (test code = 1123) <1+ White blood cells seen GRAM STAIN RESULT (BEAKER) (test code = 23534) No organisms seen HEPATIC FUNCTION [id number] 05:14:00* Test Item Value Reference Range Interpretation [...] 33 U/L 6-55 Specimen markedly ictericBASIC METABOLIC [id number] 05:13:00* Test Item Value Reference Range Interpretation [...] Specimen markedly ictericCBC W/PLT COUNT & AUTO [id number] 04:24:00 * Test Item Value Reference Range [...] = 2801) 2 % 0-1 H PROTHROMBIN TIME/[id number] 04:21:00* Test Item Value Reference Range Interpretation [...] patie nts wiht mechanical heart valves.MISCELLANEOUS LAB [id number] 11:32:00* Test Item Value Reference Range Interpretation Comments SCAN RESULT (test code = 9332525) CBC W/PLT COUNT & AUTO [id number] 09:11:00* Test Item Value Reference Range Interpretation [...] comment: User comments: Slide comments: BASIC METABOLIC [id number] 05:26:00* Test Item Value Reference Range Interpretation [...] FOR DIALYSIS PATIENTS. Specimen markedly ictericHEPATIC FUNCTION [id number] 05:26:00* Test Item Value Reference Range Interpretation [...] 347) 32 U/L 6-55 Specimen markedly ictericPROTHROMBIN TIME/[id number] 04:51:00* Test Item Value Reference Range Interpretation [...] patie nts wiht mechanical heart valves.HEPATIC FUNCTION [id number] 05:37:00* Test Item Value Reference Range Interpretation [...] 28 U/L 6-55 Specimen markedly ictericBASIC METABOLIC [id number] 05:37:00* Test Item Value Reference Range Interpretation [...] Specimen markedly ictericCBC W/PLT COUNT & AUTO [id number] 04:10:00 * Test Item Value Reference Range [...] = 2801) 2 % 0-1 H PROTHROMBIN TIME/[id number] 04:07:00* Test Item Value Reference Range Interpretation [...] for patie nts wiht mechanical heart valves.BLOOD [id number] 20:01:00* Test Item Value Reference Range Interpretation Comments CULTURE (BEAKER) (test code = 1095) No growth in 5 days BLOOD SQJBGTQ6687-07-97 20:01:00* Test Item Value Reference Range Interpretation Comments CULTURE (BEAKER) (test code = 1095) No growth in 5 days U/S, [id number] 16:58:00Worsening leukocytosis, to rule out SBP. Please do not remove >3 LReason for exam:->ascites, rule out SBPFINAL REPORT Paracentesis dated 10/27/2018 Procedure: Ultrasound-guided paracentesis. Preprocedure diagnosis: Ascites Postprocedure diagnosis: Ascites Conscious sedation: None. Radiologist: Keith Garcia M.D. Database Tester: None Anesthesia: 1% Xylocaine mixed with sodium bicarbonate local anesthesia. Te chnique: After obtaining informed consent, ultrasound-guided paracentesis was p erformed under usual sterile technique. Using a 5 syrian drainage catheter, punc ture was made in the right lower quadrant abdomen. Approximately 2000 cc of mayra r yellowish fluid was removed. Patient tolerated the procedure well without comp lication. Complication: None Graft/Implant: None Estimated Blood Loss: None Impr ession: Ultrasound-guided paracentesis. Signed: Keith Garcia Verified Da te/Time: 10/27/2018 16:58:17 Reading Location: [facility] C013Y CT Body Reading [facility] tlnnydlrcnkj7394-03-45 16:58:00Interface, External Ris In - 10/27/2018 5:00 PM CDTFINAL REPORT Paracentesis dated 10/27/2018 Procedure: Ultrasound-guided paracentesis. Preprocedure diagnosis: Ascites Postprocedure diagnosis: Ascites Conscious sedation: None. Radiologist: Keith Garcia M.D. Database Tester: None Anesthesia: 1% Xylocaine mixed with sodium bicarbonate local anesthesia. Technique: After obtaining informed consent, ultrasound-guided paracentesis was performed under usual sterile technique. Using a 5 syrian drainage catheter, puncture was made in the right lower quadrant abdomen. Approximately 2000 cc of clear yellowish fluid was removed. Patient tolerated the procedure well without complication. Complication: None Graft/Implant: None Estimated Blood Loss: None Impression: Ultrasound-guided paracentesis. Signed: Keith Garcia Verified Date/Time: 10/27/2018 16:58:17 Reading Location: [facility] C013Y CT Body Reading [facility] Center[facility] with afwcmsqfytji7903-43-43 16:24:00* Test Item Value Reference Range Interpretation Comments Appearance (test code = 9335-1) Slightly Hazy Clear A Color (test code = 6824-7) [place] Colorless, Straw A RBCs (test code = 40982-0) 309 <=1 /cu mm H Adjusted WBC Count (test code = 30563-4) 147 <=5 /cu mm H Lining Cells (test code = 13730-4) 54 <=1 /cu mm H % Segs (test code = 13653-5) 10 % % Lymphs (test code = 01574-8) 18 % % Monos (test code = 62976-9) 72 % % Eos (test code = 89853-2) 0 % % Baso (test code = 21278-4) 0 % Container Body Fluid (test code = 2873) EDTA Tube Lab Interpretation (test code = 49309-7) Abnormal [facility] WITH [id number] 16:24:00* Test Item Value Reference Range Interpretation Comments APPEARANCE FLUID (BEAKER) (test code = 510) Slightly Hazy Clear A COLOR FLUID (BEAKER) (test code = 511) [place] Colorless, Stra w A RBC FLUID (BEAKER) [...] code = 2873) EDTA Tube LACTIC ACID, [id number] 13:51:00* Test Item Value Reference Range Interpretation Comments LACTATE BLOOD VENOUS (2) (BEAKER) (test code = 2872) 0.8 mmol/L 0 .5-2.2 Sepsis screeningSpecimen markedly ictericBASIC METABOLIC [id number] 05:53:00* Test Item Value Reference Range Interpretation [...] FOR DIALYSIS PATIENTS. Specimen markedly ictericHEPATIC FUNCTION [id number] 05:51:00* Test Item Value Reference Range Interpretation [...] 347) 30 U/L 6-55 Specimen markedly ictericPROTHROMBIN TIME/[id number] 05:07:00* Test Item Value Reference Range Interpretation [...] mechanical heart valves.CBC W/PLT COUNT & AUTO RDCVYXMONJLZ9225-20-53 04:52:00* Test Item Value Reference Range Interpretation [...] 2801) 2 % 0-1 H U/S, ABDOMINAL, [id number] 13:11:00Abdomen limited area? Add comment if clarification [...] [place] Verified Date/Time: 10/26/2018 13:11:32 Reading Location: [address] Transitional Reading Room abdomen kiqwqpe0088-33-25 13:11:00Interface, External Ris In - 10/26/2018 1:13 [...] [place] Verified Date/Time: 10/26/2018 13:11:32 Reading Location: [address] Transitional Reading [facility] MET[facility]OLIC [id number] 08:13:00* Test Item Value Reference Range Interpretation [...] FOR DIALYSIS PATIENTS. Specimen markedly ictericHEPATIC FUNCTION [id number] 08:13:00* Test Item Value Reference Range Interpretation [...] Specimen markedly ictericCBC W/PLT COUNT & AUTO [id number] 05:46:00 * Test Item Value Reference Range [...] = 2801) 2 % 0-1 H PROTHROMBIN TIME/UDG2751-05-19 05:43:00* Test Item Value Reference Range Interpretation [...] for patie nts wiht mechanical heart valves.TISSUE [id number] 18:03:00Surgical Pathology Report Case: [id number] Authorizing Provider: Shy Parisi MD Collected: 10/19/2018 0856 Ordering Location: [address] Received: 10/21/2018 0830 Service Pathologist: Jefferson Martin MD Specimens: A) - Large Intestine, Colon - Cecum, HEALING ULCER BX B) - Polyp, Colon - Right/Ascending, TAKEN BY FRCP Given the history of an atypical l ymphoid infiltrate (L96-5596), the current case was reviewed by Hematopathology [...] ensure that th e current findings are career services representative. CPT: 54015; 70142 x 4Addendum electronica lly signed by Samina Arteaga MD on 10/25/2018 at 6:03 PMA. COLON, CECUM , HEALING ULCER, BIOPSY: - COLONIC MUCOSA WITH GRANULATION TISSUE, COMPATIBL E WITH HEALING ULCER - NEGATIVE FOR DYSPLASIA OR CARCINOMA (SEE COMMENT)B. C OLON, ASCENDING, POLYPECTOMY: - TUBULAR ADENOMA Signing Pathologist Dir ect Phone Line: [phone] signed by Jefferson Martin MD on 9 at 7:56 PMA. No dense lymphoid infiltrates are seen in the current biopsy. He matopathology consultation will be issued in an addendum.10147 X 2Pre and postop diagnosis: gastrointestinal hemorrhage, [...] in toto in B1. CG/pl Performed.HEPATIC FUNCTION [id number] 04:53:00* Test Item Value Reference Range Interpretation [...] 35 U/L 6-55 Specimen markedly ictericBASIC METABOLIC [id number] 04:53:00* Test Item Value Reference Range Interpretation [...] APPLICABLE FOR DIALYSIS PATIENTS. Specimen markedly ictericPROTHROMBIN TIME/[id number] 04:27:00* Test Item Value Reference Range Interpretation [...] mechanical heart valves.CBC W/PLT COUNT & AUTO ZKWWQVAEJJIQ8959-16-18 04:13:00* Test Item Value Reference Range Interpretation [...] 2801) 2 % 0-1 H BASIC METABOLIC [id number] 05:54:00* Test Item Value Reference Range Interpretation [...] FOR DIALYSIS PATIENTS. Specimen markedly ictericHEPATIC FUNCTION [id number] 05:54:00* Test Item Value Reference Range Interpretation [...] = 347) 31 U/L 6-55 Specimen markedly rrvdfsaYJDIYPDTMG8046-64-06 05:53:00* Test Item Value Reference Range Interpretation Comments PHOSPHORUS (BEAKER) (test code = 604) 2.0 mg/dL 2.3-4.7 L [id number] 05:53:00* Test Item Value Reference Range Interpretation Comments MAGNESIUM (BEAKER) (test code = 627) 2.2 mg/dL 1.6-2.6 CBC W/PLT COUNT & AUTO [id number] 05:27:00* Test Item Value Reference Range Interpretation [...] = 2801) 2 % 0-1 H PROTHROMBIN TIME/[id number] 05:27:00* Test Item Value Reference Range Interpretation [...] patie nts wiht mechanical heart valves.BASIC METABOLIC [id number] 11:14:00* Test Item Value Reference Range Interpretation [...] FOR DIALYSIS PATIENTS. ADD-ONSpecimen markedly ictericMISCELLANEOUS LAB [id number] 07:36:00* Test Item Value Reference Range Interpretation Comments SCAN RESULT (test code = 3333574) HEPATIC FUNCTION [id number] 05:32:00* Test Item Value Reference Range Interpretation [...] = 347) 33 U/L 6-55 Specimen markedly mczdgklOVOOZPIJZP5316-93-21 05:21:00* Test Item Value Reference Range Interpretation Comments PHOSPHORUS (BEAKER) (test code = 604) 2.2 mg/dL 2.3-4.7 L [id number] 05:21:00* Test Item Value Reference Range Interpretation Comments MAGNESIUM (BEAKER) (test code = 627) 2.2 mg/dL 1.6-2.6 PROTHROMBIN TIME/[id number] 05:00:00* Test Item Value Reference Range Interpretation [...] mechanical heart valves.CBC W/PLT COUNT & AUTO [id number] 04:51:00* Test Item Value Reference Range Interpretation [...] = 2801) 2 % 0-1 H BLOOD [id number] 20:01:00* Test Item Value Reference Range Interpretation Comments CULTURE (BEAKER) (test code = 1095) No growth in 5 days BLOOD [id number] 20:01:00* Test Item Value Reference Range Interpretation Comments CULTURE (BEAKER) (test code = 1095) No growth in 5 days URINALYSIS W/ REFLEX URINE [id number] 17:08:00* Test Item Value Reference Range Interpretation [...] SOURCE(BEAKER) (test code = 2795) BASIC METABOLIC [id number] 10:18:00* Test Item Value Reference Range Interpretation [...] Specimen markedly ictericCBC W/PLT COUNT & AUTO [id number] 09:06:00 * Test Item Value Reference Range [...] 347) 37 U/L 6-55 Specimen markedly ictericPROTHROMBIN TIME/[id number] 06:10:00* Test Item Value Reference Range Interpretation [...] mechanical heart valves.Peripheral Blood Smear - Path Gcubyr8891-16-10 15:06:00* Test Item Value Reference Range Interpretation Comments RBC Morphology (test code = 2846) Polychromasia WBC Morphology (test code = 2847) Toxic Granulation Pathologist Review (test code = 2640) Cell counts confirmed. Pathologist: (test code = 2849) Samina Arteaga M.D. (electronic si gnature) [facility] - PATHOLOGIST REVIEW 2018-10-21 15:06:00* Test Item Value Reference Range Interpretation Comments RBC MORPHOLOGY (BEAKER) (test code = 2846) Polychromasia WBC MORPHOLOGY (BEAKER) (test code = 2847) Toxic Granulation PERIPHERAL SMR REVIEW (BEAKER) (test code = 2640) Cell counts confi ed. VIUR-FDPZDIMDVWI-[id number] (BEAKER) (test code = 2849) Colleen Arteaga [...] Slide comments: CBC W/PLT COUNT & AUTO [id number] 09:56:00* Test Item Value Reference Range Interpretation [...] 0 /100 WBC 0 -0 BASIC METABOLIC [id number] 09:01:00* Test Item Value Reference Range Interpretation [...] DIALYSIS PATIENTS. Specimen markedly ictericVITAMIN B12 AND [id number] 08:56:00* Test Item Value Reference Range Interpretation Comments VITAMIN B12 (BEAKER) (test code = 774) > pg/mL 213-816 H FOLATE (BEAKER) (test code = 362) 15.2 ng/mL >=7.0 2D Echo W/Doppler(CW/PW/Color)2018-10-21 08:44:03Ejection FractionSLEH ECHO HEARTLAB MKCKESSON CPACSInterface, External Ris In - 10/21/2018 8:44 AM CDTTransthoracic Echocardiography Report (TTE) Demographics Patient Name INDRA GALVAN Date of Study 10/20/2018 YAN CORDERO Gender Male Visit Number [id number] Race Unknown Room Number 743 Number Date of 1980 Referring Mandeep Taylor Physician Age 37 year(s) Wing Coverer Abed Lowell Interpreting Indra Kline Physician Procedure Type of Study TTE procedure:2DECHO W DOPPLER(CW/PW/COLOR) (Routine) Indications:Known or suspected heart ericka lure.Clinical HistoryHGB 8.1HCT 24.0 %FATTY LIVERHTNOBESITYContrast Medium: Defi nity. Amount - 2 mlHeight: 72 inches Weight: 110.68 kg (244 lbs) BSA: 2.32 m^2 B IN: 33.09kg/m^2HR: 96 bpm BP: 113/61 mmHg Summary [...] CO: 9.21 l/min LVOT CI: 3.97 l/min/m^2 [facility] CenterRETICULOCYTE [id number] 06:56:00* Test Item Value Reference Range Interpretation Comments RETICULOCYTE COUNT PCT (BEAKER) (test code = 575) 8.0 % 0.5- 1.8 H HEPATIC FUNCTION [id number] 06:35:00* Test Item Value Reference Range Interpretation [...] = 347) 34 U/L 6-55 Specimen markedly tzkjvjpUMGHYWZVBID1950-84-42 06:12:00* Test Item Value Reference Range Interpretation Comments HAPTOGLOBIN (BEAKER) (test code = 366) 67 mg/dL 14-258 PROTHROMBIN TIME/[id number] 05:26:00* Test Item Value Reference Range Interpretation [...] 452 U/L 125-2 20 H BASIC METABOLIC [id number] 07:58:00* Test Item Value Reference Range Interpretation [...] FOR DIALYSIS PATIENTS. Specimen markedly ictericHEPATIC FUNCTION [id number] 07:38:00* Test Item Value Reference Range Interpretation [...] = 347) 26 U/L 6-55 Specimen markedly cupdgevJXEDCLOEN6534-08-96 07:36:00* Test Item Value Reference Range Interpretation Comments MAGNESIUM (BEAKER) (test code = 627) 2.2 mg/dL 1.6-2.6 LAOFJKCRHG0234-18-27 07:36:00* Test Item Value Reference Range Interpretation Comments PHOSPHORUS (BEAKER) (test code = 604) 2.8 mg/dL 2.3-4.7 CBC W/PLT COUNT & AUTO KCZDLUYFPZYN8103-11-06 06:58:00* Test Item Value Reference Range Interpretation [...] = 2801) 2 % 0-1 H PROTHROMBIN TIME/[id number] 06:50:00* Test Item Value Reference Range Interpretation [...] mechanical heart valves.CBC W/PLT COUNT & AUTO EXSQBGQNLMMZ9473-05-73 22:22:00* Test Item Value Reference Range Interpretation [...] 0 -0 CBC W/PLT COUNT & AUTO YAYXGHXVFFKJ0815-24-66 16:47:00* Test Item Value Reference Range Interpretation [...] 0 -0 CBC W/PLT COUNT & AUTO [id number] 09:23:00* Test Item Value Reference Range Interpretation [...] = 347) 20 U/L 6-55 Specimen markedly mnrciqzCOYAVXWML4439-42-59 05:23:00* Test Item Value Reference Range Interpretation Comments MAGNESIUM (BEAKER) (test code = 627) 2.2 mg/dL 1.6-2.6 BASIC METABOLIC [id number] 05:23:00* Test Item Value Reference Range Interpretation [...] NOT APPLICABLE FOR DIALYSIS PATIENTS. Specimen markedly mqblyjwZJFVHWSDMM3204-58-28 05:23:00* Test Item Value Reference Range Interpretation Comments PHOSPHORUS (BEAKER) (test code = 604) 1.6 mg/dL 2.3-4.7 L PROTHROMBIN TIME/[id number] 04:53:00* Test Item Value Reference Range Interpretation [...] ients with mechanical heart valves.Urea Nitrogen, random jvuvd4702-87-56 02:02:00* Test Item Value Reference Range Interpretation Comments Urea Nitrogen, Ur (test code = 3095-7) 120 mg/dL PHILLIP (test code = PHILLIP) Reference Range: No Normals [facility] HospitalCREATININE, RANDOM [id number] 02:02:00* Test Item Value Reference Range Interpretation Comments CREATININE URINE (BEAKER) (test code = 375) 44.3 mg/dL Reference Range: No NormalsSODIUM, RANDOM [id number] 02:02:00* Test Item Value Reference Range Interpretation Comments SODIUM URINE (BEAKER) (test code = 243) 93 meq/L Reference Range: No NormalsUREA NITROGEN, RANDOM [id number] 02:02:00* Test Item Value Reference Range Interpretation Comments UREA NITROGEN URINE (BEAKER) (test code = 538) 120 mg/dL Reference Range: No NormalsCBC W/PLT COUNT & AUTO [id number] 20:17:00* Test Item Value Reference Range Interpretation [...] Slide comments: CBC W/PLT COUNT & AUTO [id number] 13:37:00* Test Item Value Reference Range Interpretation [...] Slide comments: CBC W/PLT COUNT & AUTO [id number] 10:50:00* Test Item Value Reference Range Interpretation [...] comment: User comments: Slide comments: LACTIC ACID, [id number] 07:43:00* Test Item Value Reference Range Interpretation Comments LACTATE BLOOD VENOUS (2) (BEAKER) (test code = 2872) 0.9 mmol/L 0 .5-2.2 Specimen slightly hemolyzed Specimen markedly ictericHEPATIC FUNCTION [id number] 06:45:00* Test Item Value Reference Range Interpretation [...] 19 U/L 6-55 Specimen markedly ictericBASIC METABOLIC [id number] 06:44:00* Test Item Value Reference Range Interpretation [...] APPLICABLE FOR DIALYSIS PATIENTS. Specimen markedly ictericPROTHROMBIN TIME/[id number] 05:44:00* Test Item Value Reference Range Interpretation [...] mechanical heart valves.CBC W/PLT COUNT & AUTO QUOUZIPGATPJ8014-97-53 21:39:00* Test Item Value Reference Range Interpretation [...] comments: Slide comments: URINALYSIS W/ REFLEX URINE [id number] 18:43:00* Test Item Value Reference Range Interpretation [...] SOURCE(BEAKER) (test code = 2795) BASIC METABOLIC [id number] 18:23:00* Test Item Value Reference Range Interpretation [...] FOR DIALYSIS PATIENTS. Specimen markedly ictericU/S, ABDOMINAL, [id number] 17:43:00With doppler Reason for exam:->elevated liver enzymes, [...] [place] Verified Date/Time: 10/17/2018 17:43:28 Reading Location: [address] Consult Reading Room U/S, DUPLEX, [id number] 17:43:00With doppler Reason for exam:->elevated liver enzymes, [...] Verified Date /Time: 10/17/2018 17:43:28 Reading Location: [address] Consult Reading Room gvdamjc9804-73-63 17:43:00Interface, External Ris In - 10/17/2018 5:45 [...] [place] Verified Date/Time: 10/17/2018 17:43:28 Reading Location: [address] Consult Reading Room [facility] CenterUS abdomen nybsdefo5027-17-34 17:43:00Interface, External Ris In - 10/17/2018 5:45 [...] [place] Verified Date/Time: 10/17/2018 17:43:28 Reading Location: [address] Consult Reading Room [facility] NHJPHJDNE4048-04-34 17:35:00* Test Item Value Reference Range Interpretation Comments MAGNESIUM (BEAKER) (test code = 627) 2.3 mg/dL 1.6-2.6 Creatine Kinase (CK)2018-10-17 16:29:00* Test Item Value Reference Range Interpretation Comments Total CK (test code = 2157-6) 29 U/L 29-200 Lab Interpretation (test code = 90751-8) [facility]17 16:29:00* Test Item Value Reference Range Interpretation Comments CREATINE KINASE TOTAL (BEAKER) (test code = 380) 29 U/L 29-20 0 [id number] 16:11:00* Test Item Value Reference Range Interpretation Comments PROCALCITONIN (BEAKER) (test code = 3036) 0.71 ng/mL <0.05 H SEPSIS RISK (ng/mL)Low: 0.05-0.50Intermediate: 0.51-2.00High: > =2.01LACTIC ACID, [id number] 15:42:00* Test Item Value Reference Range Interpretation Comments LACTATE BLOOD VENOUS (2) (BEAKER) (test code = 2872) 1.2 mmol/L 0 .5-2.2 Specimen slightly hemolyzed Specimen markedly ictericCBC W/PLT COUNT & AUTO [id number] 15:29:00 * Test Item Value Reference Range [...] = 413) 0 /100 WBC 0 -0 [id number] 15:22:00* Test Item Value Reference Range Interpretation Comments ETHANOL (BEAKER) (test code = 400) < mg/dL <=10 CBC W/PLT COUNT & AUTO [id number] 14:47:00* Test Item Value Reference Range Interpretation [...] 21 U/L 6-55 Specimen markedly ictericBASIC METABOLIC [id number] 08:16:00* Test Item Value Reference Range Interpretation [...] PATIENTS. Specimen markedly ictericURINALYSIS W/ REFLEX URINE RYJGXKA3090-84-36 03:31:00* Test Item Value Reference Range Interpretation [...] (test code = 2795) Bilirubin Crystals seenBILIRUBIN, [id number] 00:59:00* Test Item Value Reference Range Interpretation Comments BILIRUBIN DIRECT (BEAKER) (test code = 706) 24.2 mg/dL 0.1-0.5 H Specimen slightly hemolyzed COMPREHENSIVE METABOLIC [id number] 00:58:00* Test Item Value Reference Range Interpretation [...] NOT APPLICABLE FOR DIALYSIS PATIENTS. Specimen markedly eylvmwfDBGIMAEMA7985-34-77 00:13:00* Test Item Value Reference Range Interpretation Comments MAGNESIUM (BEAKER) (test code = 627) 1.5 mg/dL 1.6-2.6 L Specimen slightly hemolyzed PROTHROMBIN TIME/[id number] 23:47:00* Test Item Value Reference Range Interpretation [...] mechanical heart valves.CBC W/PLT COUNT & AUTO [id number] 23:43:00* Test Item Value Reference Range Interpretation [...] 0-1 H RAD, CHEST, 1 VIEW, NON [id number] 22:36:00Reason for exam:->SOBShould this be performed at [...] MDReport Verified Date/Time: 10/16/2018 22:36:02 Lactic Acid Xzbqp4201-72-78 20:02:00* Test Item Value Reference Range Interpretation Comments Lactic Acid Level (test code = Lactic Acid Level) 18.4 4.5- 19.8 [facility]00 [facility] [address] [address] Patient Name: INDRA GALVAN JR MR #: [id number] : 1980 Age/Sex: 37/M Req #: [id number] Adm Physician: Ordered by: MARYLU DUQUE MD Report #: [id number] Location: ER Room/Bed: Procedure: NM/HEPTOBILIARY Exam Date: [...] COPY TO: MARYLU DUQUE MD CT ABDOMEN/PELVIS [id number] 17:40:00 [address] [place] [address] Patient Name: INDRA GALVAN JR MR #: [id number] : 1980 Age/Sex: 37/M Req #: [id number] Adm Physician: Ordered by: MARYLU DUQUE MD Report #: [id number] Location: ER Room/Bed: Procedure: CT/CT ABDOMEN/PELVIS W [...] 10/16/181749 COPY TO: MARYLU DUQUE MD Prothrombin Oegu4996-67-94 17:34:00* Test Item Value Reference Range Interpretation Comments Prothrombin Time (test code = 5902-2) 18.5 11.9-14.5 [facility]Prothromb Time International Ratio 2018-10-16 17:34:00* Test Item Value Reference Range Interpretation Comments Prothromb Time International Ratio (test code = 6301-6) 1.48 Oral Anticoagulant Therapy INR Values:1. Low Intensity Therapy 1.5 - 2.02 . Moderate Intensity Therapy 2.0 - 3.03. High Intensity Therapy(1) 2.5 - 3. 54. High Intensity Therapy(2) 3.0 - 4.05. Panic Value INR > 5.0 [facility] HospitalAcetaminophen Bckbe8227-48-40 17:30:00* Test Item Value Reference Range Interpretation Comments Acetaminophen Level (test code = 89618-0) < 3 10-30 L [facility] HospitalUrine [id number] 16:09:00* Test Item Value Reference Range Interpretation Comments Urine WBC (test code = 5821-4) 0-5 0-5 [facility] [id number] 16:09:00* Test Item Value Reference Range Interpretation Comments Urine RBC (test code = 39355-1) 6-10 0-5 H [facility] Gbcwihkt9781-99-64 16:09:00* Test Item Value Reference Range Interpretation Comments Urine Bacteria (test code = 24057-2) MANY NONE H [facility] Epithelial Rzvie3813-69-15 16:09:00 * Test Item Value Reference Range Interpretation Comments Urine Epithelial Cells (test code = 96117-9) FEW NONE [facility] HospitalU[facility] Amorphous Lulvtrof1681-08-90 16:09:00* Test Item Value Reference Range Interpretation Comments Urine Amorphous Sediment (test code = 8246-1) MODERATE FEW H [facility] HospitalU[facility] Fine Granular Cnkyt6822-95-41 16:09:00* Test Item Value Reference Range Interpretation Comments Urine Fine Granular Casts (test code = 27749-2) 1-5 >0 H [facility] HospitalUrine Bwolm9013-35-72 15:58:00* Test Item Value Reference Range Interpretation Comments Urine Color (test code = 5778-6) BROWN YELLOW H [facility] HospitalU[facility] Chunbxq6341-35-72 15:58:00* Test Item Value Reference Range Interpretation Comments Urine Clarity (test code = 77374-7) CLOUDY CLEAR H [facility] HospitalUrine Specific Oqsllrs1171-91-14 15:58:00 * Test Item Value Reference Range Interpretation Comments Urine Specific [place] (test code = 5811-5) 1.010 1.010-1.02 5 [facility] [id number] 15:58:00* Test Item Value Reference Range Interpretation Comments Urine pH (test code = 08615-7) 7 5-7 [facility] Leukocyte Ayxibivl7131-72-95 15:58:00* Test Item Value Reference Range Interpretation Comments Urine Leukocyte Esterase (test code = 97004-8) SMALL NEGATIV E [facility] HospitalU[facility] Kzufvfg3095-75-67 15:58:00* Test Item Value Reference Range Interpretation Comments Urine Nitrite (test code = 97074-7) POSITIVE NEGATIVE H [facility] HospitalUrine Eztqnhm7958-09-22 15:58:00* Test Item Value Reference Range Interpretation Comments Urine Protein (test code = 58425-4) 2+ NEGATIVE H [facility] HospitalUrine Glucose (UA)2018-10-16 15:58:00* Test Item Value Reference Range Interpretation Comments Urine Glucose (UA) (test code = 93044-8) 2+ NEGATIVE H [facility] HospitalUrine Ujihhhy8349-07-57 15:58:00* Test Item Value Reference Range Interpretation Comments Urine Ketones (test code = 32646-2) TRACE NEGATIVE H [facility] Qacpwpkmdpir2463-23-12 15:58:00* Test Item Value Reference Range Interpretation Comments Urine Urobilinogen (test code = 65833-4) 1 0.2-1 [facility] Znpepnvkn7505-22-94 15:58:00* Test Item Value Reference Range Interpretation Comments Urine Bilirubin (test code = 1977-8) LARGE NEGATIVE [facility] Kpupw3123-07-03 15:58:00* Test Item Value Reference Range Interpretation Comments Urine Blood (test code = 89019-7) 3+ NEGATIVE [facility] HospitalB-Type Natriuretic Rpxkwef2936-81-91 15:31:00* Test Item Value Reference Range Interpretation Comments B-Type Natriuretic Peptide (test code = 20790-3) 403.4 0-100 H [facility] HospitalCreatine Kinase CL5929-14-32 15:20:00* Test Item Value Reference Range Interpretation Comments Creatine Kinase MB (test code = 88796-3) 0.40 0-5.0 [facility] HospitalTroponin Y8758-37-29 15:20:00* Test Item Value Reference Range Interpretation Comments Troponin I (test code = PMT3406) 0.012 0-0.300 [facility] Uuagz3754-11-82 15:19:00* Test Item Value Reference Range Interpretation Comments Sodium Level (test code = 2951-2) 134 136-145 L [facility] HospitalPotassium Sbwfb1598-88-92 15:19:00* Test Item Value Reference Range Interpretation Comments Potassium Level (test code = 2823-3) 2.7 3.5-5.1 LL Results repeated and called to DR. KELSEY at 1518 on 10/16/18 by VICKY WHITTAKER. Read back and verified.[facility] HospitalChloride Level 2018-10-16 15:19:00* Test Item Value Reference Range Interpretation Comments Chloride Level (test code = 2075-0) 93 98-107 L [facility] HospitalCarbon Dioxide Fbuom3783-89-21 15:19:00* Test Item Value Reference Range Interpretation Comments Carbon Dioxide Level (test code = 2028-9) 28 22-29 [facility] HospitalAnion Qxj7945-78-14 15:19:00* Test Item Value Reference Range Interpretation Comments Anion Gap (test code = 63415-5) 15.7 8-16 [facility] HospitalBlood Urea Raqhoxwr3757-34-52 15:19:00* Test Item Value Reference Range Interpretation Comments Blood Urea Nitrogen (test code = 3094-0) 9 7-26 [facility] HospitalCreatinine2019-08-21 15:19:00* Test Item Value Reference Range Interpretation Comments Creatinine (test code = 2160-0) 1.47 0.72-1.25 H [facility] HospitalBUN/Creatinine Qavrk1315-58-55 15:19:00* Test Item Value Reference Range Interpretation Comments BUN/Creatinine Ratio (test code = 3097-3) 6 6-25 [facility] HospitalEstimat Glomerular Filtration Rate 2018-10-16 15:19:00* Test Item Value Reference Range Interpretation Comments Estimat Glomerular Filtration Rate (test code = 353147198) 53 >60 L Ranges were taken from the National Kidney Disease Education Program and the [facility] [employer] literature.Reference ranges:60 or greater: Fvbqox32-10 ( for 3 consecutive months): Chronic kidney disease 15 or less: Kidney failureMethodist McKinney HospitalGlucose Jnyzg1633-48-33 15:19:00* Test Item Value Reference Range Interpretation Comments Glucose Level (test code = VZX5765) 144 74-118 H [facility] HospitalCalcium Suvgv8606-85-48 15:19:00* Test Item Value Reference Range Interpretation Comments Calcium Level (test code = 33751-7) 8.5 8.4-10.2 [facility] HospitalTotal Qbuzhnotj1868-63-49 15:19:00* Test Item Value Reference Range Interpretation Comments Total Bilirubin (test code = 1975-2) > 25.0 0.2-1.2 H [facility] HospitalAspartate Amino Transf (AST/SGOT) 2018-10-16 15:19:00* Test Item Value Reference Range Interpretation Comments Aspartate Amino Transf (AST/SGOT) (test code = Aspartate Amino Transf (AST/SGOT)) 98 5-34 H [facility] HospitalAlanine Aminotransferase (ALT/SGPT) 2018-10-16 15:19:00* Test Item Value Reference Range Interpretation Comments Alanine Aminotransferase (ALT/SGPT) (test code = 1742-6) 22 0-55 [facility] HospitalTotal Pgotdit7602-98-02 15:19:00* Test Item Value Reference Range Interpretation Comments Total Protein (test code = 2885-2) 6.6 6.5-8.1 [facility] HospitalAlbumin2019-08-21 15:19:00* Test Item Value Reference Range Interpretation Comments Albumin (test code = 1751-7) 2.5 3.5-5.0 L [facility] HospitalGlobulin2019-08-21 15:19:00* Test Item Value Reference Range Interpretation Comments Globulin (test code = 34440-1) 4.1 2.3-3.5 H [facility] HospitalAlbumin/Globulin Wxwqm0277-20-08 15:19:00 * Test Item Value Reference Range Interpretation Comments Albumin/Globulin Ratio (test code = 1759-0) 0.6 0.8-2.0 L [facility] HospitalAlkaline Wouxfxbkacb8282-35-11 15:19:00* Test Item Value Reference Range Interpretation Comments Alkaline Phosphatase (test code = 6768-6) 159 40-150 H [facility] HospitalCreatine Jewzxj6441-82-35 15:19:00* Test Item Value Reference Range Interpretation Comments Creatine Kinase (test code = 2157-6) 39 30-200 [facility] HospitalWhite Blood Lhgbe7635-77-82 14:59:00* Test Item Value Reference Range Interpretation Comments White Blood Count (test code = 6690-2) 18.65 4.8-10.8 H [facility] HospitalRed Blood Arcss5981-02-39 14:59:00* Test Item Value Reference Range Interpretation Comments Red Blood Count (test code = 789-8) 2.11 4.3-5.7 L [facility] HospitalHemoglobin2019-08-21 14:59:00* Test Item Value Reference Range Interpretation Comments Hemoglobin (test code = 51028-7) 7.7 14.0-18.0 L [facility] HospitalHematocrit2019-08-21 14:59:00* Test Item Value Reference Range Interpretation Comments Hematocrit (test code = 4544-3) 22.2 38.2-49.6 L [facility] HospitalMean Corpuscular Doopsi8806-72-72 14:59:00* Test Item Value Reference Range Interpretation Comments Mean Corpuscular Volume (test code = 787-2) 105.2 81-99 H [facility] HospitalMean Corpuscular Tcwxmpwhjd6822-81-84 14:59:00* Test Item Value Reference Range Interpretation Comments Mean Corpuscular Hemoglobin (test code = 785-6) 36.5 28-32 H [facility] HospitalMean Corpuscular Hemoglobin Concent 2018-10-16 14:59:00* Test Item Value Reference Range Interpretation Comments Mean Corpuscular Hemoglobin Concent (test code = 786-4) 34.7 31-35 [facility] HospitalRed Cell Distribution Qxvro2723-93-24 14:59:00* Test Item Value Reference Range Interpretation Comments Red Cell Distribution Width (test code = 19341-1) 14.0 11.7 -14.4 [facility] HospitalPlatelet Avzwe2740-34-56 14:59:00* Test Item Value Reference Range Interpretation Comments Platelet Count (test code = 777-3) 184 140-360 [facility] HospitalNeutrophils (%) (Auto)2018-10-16 14:59:00 * Test Item Value Reference Range Interpretation Comments Neutrophils (%) (Auto) (test code = 58270-1) 80.6 38.7-80.0 H [facility] HospitalLymphocytes (%) (Auto)2018-10-16 14:59:00 * Test Item Value Reference Range Interpretation Comments Lymphocytes (%) (Auto) (test code = 736-9) 5.3 18.0-39.1 L [facility] HospitalMonocytes (%) (Auto)2018-10-16 14:59:00* Test Item Value Reference Range Interpretation Comments Monocytes (%) (Auto) (test code = 5905-5) 11.7 4.4-11.3 H [facility] HospitalEosinophils (%) (Auto)2018-10-16 14:59:00 * Test Item Value Reference Range Interpretation Comments Eosinophils (%) (Auto) (test code = 713-8) 0.5 0.0-6.0 [facility] HospitalBasophils (%) (Auto)2018-10-16 14:59:00* Test Item Value Reference Range Interpretation Comments Basophils (%) (Auto) (test code = 706-2) 0.3 0.0-1.0 [facility] HospitalIM GRANULOCYTES %2018-10-16 14:59:00* Test Item Value Reference Range Interpretation Comments IM GRANULOCYTES % (test code = IM GRANULOCYTES %) 1.6 0.0- 1.0 H [facility] HospitalNeutrophils # (Auto)2018-10-16 14:59:00* Test Item Value Reference Range Interpretation Comments Neutrophils # (Auto) (test code = 751-8) 15.0 2.1-6.9 H [facility] HospitalLymphocytes # (Auto)2018-10-16 14:59:00* Test Item Value Reference Range Interpretation Comments Lymphocytes # (Auto) (test code = 49994-9) 1.0 1.0-3.2 [facility] HospitalMonocytes # (Auto)2018-10-16 14:59:00* Test Item Value Reference Range Interpretation Comments Monocytes # (Auto) (test code = 742-7) 2.2 0.2-0.8 H [facility] HospitalEosinophils # (Auto)2018-10-16 14:59:00* Test Item Value Reference Range Interpretation Comments Eosinophils # (Auto) (test code = 711-2) 0.1 0.0-0.4 [facility] HospitalBasophils # (Auto)2018-10-16 14:59:00* Test Item Value Reference Range Interpretation Comments Basophils # (Auto) (test code = 704-7) 0.1 0.0-0.1 [facility] HospitalAbsolute Immature Granulocyte (auto 2018-10-16 14:59:00* Test Item Value Reference Range Interpretation Comments Absolute Immature Granulocyte (auto (doug t code = Absolute Immature Granulocyte (auto) 0.30 0-0.1 H [facility] HospitalAFB CULTURE + [id number] 07:33:00* Test Item Value Reference Range Interpretation Comments CULTURE (BEAKER) (test code = 1095) No acid-fast bacilli isolate d in 42 days AFB SMEAR (BEAKER) (test code = 994) No acid fast bacilli seen FUNGUS CULTURE + BJYQD2384-42-94 17:11:00* Test Item Value Reference Range Interpretation Comments CULTURE (BEAKER) (test code = 1095) No fungus isolated in 28 days FUNGUS SMEAR (BEAKER) (test code = 1406) No fungi seen CREATINE KINASE (CK)2018-07-09 05:38:00* Test Item Value Reference Range Interpretation Comments CREATINE KINASE TOTAL (BEAKER) (test code = 380) 17 U/L 29-20 0 L VFGUVXCNW5373-34-81 05:37:00* Test Item Value Reference Range Interpretation Comments MAGNESIUM (BEAKER) (test code = 627) 1.6 mg/dL 1.6-2.6 BASIC METABOLIC DLWQK5935-43-78 05:37:00* Test Item Value Reference Range Interpretation [...] FOR DIALYSIS PATIENTS. Specimen moderately ictericHEPATIC FUNCTION NLDVQ3870-40-79 05:37:00* Test Item Value Reference Range Interpretation [...] 347) 83 U/L 6-55 H Specimen moderately nsakllpUZSV4921-55-30 05:32:00* Test Item Value Reference Range Interpretation Comments PARTIAL THROMBOPLASTIN TIME (BEAKER) (test code = 760) 45.3 seconds 22.5-36.0 H PROTHROMBIN TIME/BVM5207-79-67 05:31:00* Test Item Value Reference Range Interpretation [...] mechanical heart valves.CBC W/PLT COUNT & AUTO HRYYILIEIYUV0730-48-66 05:08:00* Test Item Value Reference Range Interpretation [...] code = 2801) 1 % 0-1 POCT-GLUCOSE IUYII5647-14-34 22:05:00* Test Item Value Reference Range Interpretation Comments POC-GLUCOSE METER (BEAKER) (test code = 1538) 168 mg/dL 70-110 H TESTED AT [facility] [address] [facility] [address] [place], ESOPH, SWALLOW FUNCTION, WITH CINE OR [id number] 10:04:00Reason for exam:->evaluate swallow safety after prolonged [...] MDReport Verified Date/Time: 07/08/2018 10:04:01 Reading Location: [facility] B1 C013X [facility] Consult Reading Room YHVLD9388-24-45 06:21:00* Test Item Value Reference Range Interpretation Comments MAGNESIUM (BEAKER) (test code = 627) 1.7 mg/dL 1.6-2.6 BASIC METABOLIC LCTZH6999-04-16 06:21:00* Test Item Value Reference Range Interpretation [...] FOR DIALYSIS PATIENTS. Specimen moderately ictericHEPATIC FUNCTION NJFEK2004-60-09 06:21:00* Test Item Value Reference Range Interpretation [...] Specimen moderately ictericCBC W/PLT COUNT & AUTO QDGCUESOZANM4090-44-77 06:09:00* Test Item Value Reference Range Interpretation [...] (test code = 2801) 1 % 0-1 [id number] 05:49:00* Test Item Value Reference Range Interpretation Comments PARTIAL THROMBOPLASTIN TIME (BEAKER) (test code = 760) 45.0 seconds 22.5-36.0 H PROTHROMBIN TIME/GYF4658-57-52 05:48:00* Test Item Value Reference Range Interpretation Comments PROTIME (BEAKER) (test code = 759) 15.7 seconds 11.7-14.7 H INR (BEAKER) (test code = 370) 1.3 <=5.9 RECOMMENDED COUMADIN/WARFARIN INR THERAPY RANGESSTANDARD DOSE: 2.0 - 3.0 Inclu herb: PROPHYLAXIS for venous thrombosis, systemic embolization; TREATMENT for giulia ous thrombosis and/or pulmonary embolus.HIGH RISK: Target INR is 2.5-3.5 for pat ients with mechanical heart valves.POCT-GLUCOSE [id number] 05:45:00* Test Item Value Reference Range Interpretation Comments POC-GLUCOSE METER (BEAKER) (test code = 1538) 104 mg/dL 70-110 TESTED AT [address] [address] POCT-GLUCOSE MZMMO4074-47-26 00:02:00* Test Item Value Reference Range Interpretation Comments POC-GLUCOSE METER (BEAKER) (test code = 1538) 102 mg/dL 70-110 TESTED AT [address] [address] POCT-GLUCOSE [id number] 18:01:00* Test Item Value Reference Range Interpretation Comments POC-GLUCOSE METER (BEAKER) (test code = 1538) 91 mg/dL 70-110 TESTED AT [address] [address] POCT-GLUCOSE [id number] 12:34:00* Test Item Value Reference Range Interpretation Comments POC-GLUCOSE METER (BEAKER) (test code = 1538) 94 mg/dL 70-110 TESTED AT [address] [address] POCT-GLUCOSE KQHWO9380-74-15 06:22:00* Test Item Value Reference Range Interpretation Comments POC-GLUCOSE METER (BEAKER) (test code = 1538) 111 mg/dL 70-110 H TESTED AT [address] [address] CQPMTOUJO2315-07-96 06:14:00* Test Item Value Reference Range Interpretation Comments MAGNESIUM (BEAKER) (test code = 627) 1.8 mg/dL 1.6-2.6 BASIC METABOLIC CYBUP6570-94-99 06:14:00* Test Item Value Reference Range Interpretation [...] FOR DIALYSIS PATIENTS. Specimen moderately ictericHEPATIC FUNCTION QGKVS1338-04-56 06:14:00* Test Item Value Reference Range Interpretation [...] 347) 93 U/L 6-55 H Specimen moderately ozdnbraOYWT7178-08-34 05:42:00* Test Item Value Reference Range Interpretation Comments PARTIAL THROMBOPLASTIN TIME (BEAKER) (test code = 760) 43.0 seconds 22.5-36.0 H PROTHROMBIN TIME/MTJ7953-51-30 05:41:00* Test Item Value Reference Range Interpretation [...] mechanical heart valves.CBC W/PLT COUNT & AUTO HGPXDAKWRGCR2011-71-79 05:30:00* Test Item Value Reference Range Interpretation [...] code = 2801) 1 % 0-1 POCT-GLUCOSE [id number] 00:27:00* Test Item Value Reference Range Interpretation Comments POC-GLUCOSE METER (BEAKER) (test code = 1538) 110 mg/dL 70-110 TESTED AT [address] [address] POCT-GLUCOSE [id number] 17:58:00* Test Item Value Reference Range Interpretation Comments POC-GLUCOSE METER (BEAKER) (test code = 1538) 165 mg/dL 70-110 H TESTED AT [address] [address] POCT-GLUCOSE HWXOZ0263-28-08 12:01:00* Test Item Value Reference Range Interpretation Comments POC-GLUCOSE METER (BEAKER) (test code = 1538) 138 mg/dL 70-110 H TESTED AT [address] [address] [id number] 07:32:00* Test Item Value Reference Range Interpretation Comments PARTIAL THROMBOPLASTIN TIME (BEAKER) (test code = 760) 43.2 seconds 22.5-36.0 H PROTHROMBIN TIME/[id number] 07:31:00* Test Item Value Reference Range Interpretation Comments PROTIME (BEAKER) (test code = 759) 15.1 seconds 11.7-14.7 H INR (BEAKER) (test code = 370) 1.3 <=5.9 RECOMMENDED COUMADIN/WARFARIN INR THERAPY RANGESSTANDARD DOSE: 2.0 - 3.0 Inclu herb: PROPHYLAXIS for venous thrombosis, systemic embolization; TREATMENT for giulia ous thrombosis and/or pulmonary embolus.HIGH RISK: Target INR is 2.5-3.5 for pat ients with mechanical heart valves.NZLZFZEJX8673-85-08 06:50:00* Test Item Value Reference Range Interpretation Comments MAGNESIUM (BEAKER) (test code = 627) 1.5 mg/dL 1.6-2.6 L BASIC METABOLIC [id number] 06:50:00* Test Item Value Reference Range Interpretation [...] FOR DIALYSIS PATIENTS. Specimen moderately ictericHEPATIC FUNCTION [id number] 06:50:00* Test Item Value Reference Range Interpretation [...] Specimen moderately ictericCBC W/PLT COUNT & AUTO QKGSIYUOPHFH9477-03-95 06:49:00* Test Item Value Reference Range Interpretation [...] code = 2801) 1 % 0-1 POCT-GLUCOSE [id number] 06:06:00* Test Item Value Reference Range Interpretation Comments POC-GLUCOSE METER ([facility]) (test code = 1538) 165 mg/dL 70-110 H TESTED AT [facility] [address] [facility] [address] POCT-GLUCOSE [id number] 00:15:00* Test Item Value Reference Range Interpretation Comments POC-GLUCOSE METER ([facility]) (test code = 1538) 132 mg/dL 70-110 H TESTED AT [address] [address] POCT-GLUCOSE [id number] 21:55:00* Test Item Value Reference Range Interpretation Comments POC-GLUCOSE METER ([facility]) (test code = 1538) 161 mg/dL 70-110 H TESTED AT [address] [address] POCT-GLUCOSE [id number] 17:57:00* Test Item Value Reference Range Interpretation Comments POC-GLUCOSE METER ([facility]) (test code = 1538) 136 mg/dL 70-110 H TESTED AT [address] [address] TISSUE [id number] 16:12:00Surgical Pathology Report Case: [id number] Authorizing Provider: Neptali Kolb, Collected: 07/04/2018 0827 Ordering Location: [address] Received: 07/04/2018 1313 Pathologist: Be Arenas MD Specimen: Cecum, R/O lymphoma PART A CECAL BIOPSY:GRANULATION TISSUE.NO EVIDENCE OF LYMPHOMA OR CARCINOMA..IMMUNOSTAINS FOR CMV, HSV1, HSV2 ARE NEGATIVE.SPECIAL STAINS FOR FUNGAL ORGANISMS (GMS, PAS) ARE NEGATIVE.SEE DIAGNOSTIC COMMENT. Signing Pathologist Direct Phone Line: [phone] signed by Be Arenas MD on 07/05/2018 [...] the sampled material may not be fully career services representative. The prominent B cell population identified in the prior study ([id number]) is not identified in the current study. If there is a strong clinical concern for a malignant process, additional tissue based studies are recommended as the sampled material may not be fully career services representative. 14105, 90030, 33509O0, 28747A7Objbv ulcer lower GI bleeding, rule out lymphomaCecum Received in formalin labeled as "cecum, rule out lymphoma" are multiple more than five red-guajardo tissue fragments ranging from 0.1 to 0.4 cm. The specimen is submitted in toto in one cassette. [place]/plperformedThe interpretation of this case included the use of immunohistochemistry or special stains.BLOCK A1- GMS, PAS, HSV1, HSV2, CD20, PAX5, CD3, FN0Tuigiog Slides Exa mined: In-house known positive controls were evaluated along with the test tiss ue. These control slides run alongside of the patients sample show appropriate staining. Internal positive and negative controls when available are evaluated I mmunohistochemistry technical testing was performed at [facility], Pathology Laboratory where it was developed and [...] to perfo high complexity clinical laboratory testing.POCT-GLUCOSE [id number] 12:01:00* Test Item Value Reference Range Interpretation Comments POC-GLUCOSE METER (BEAKER) (test code = 1538) 157 mg/dL 70-110 H TESTED AT [facility] [address] [facility] [address] CBC W/PLT COUNT & AUTO [id number] 07:05:00* Test Item Value Reference Range Interpretation [...] Received comment: User comments: Slide comments: POCT-GLUCOSE [id number] 06:09:00* Test Item Value Reference Range Interpretation Comments POC-GLUCOSE METER (BEAKER) (test code = 1538) 148 mg/dL 70-110 H TESTED AT [facility] [address] [place] [address] [id number] 05:03:00* Test Item Value Reference Range Interpretation Comments MAGNESIUM (BEAKER) (test code = 627) 1.7 mg/dL 1.6-2.6 BASIC METABOLIC [id number] 05:03:00* Test Item Value Reference Range Interpretation [...] FOR DIALYSIS PATIENTS. Specimen moderately ictericHEPATIC FUNCTION [id number] 05:03:00* Test Item Value Reference Range Interpretation [...] 347) 112 U/L 6-55 H Specimen moderately [id number] 04:56:00* Test Item Value Reference Range Interpretation Comments PARTIAL THROMBOPLASTIN TIME (BEAKER) (test code = 760) 49.3 seconds 22.5-36.0 H PROTHROMBIN TIME/[id number] 04:55:00* Test Item Value Reference Range Interpretation Comments PROTIME (BEAKER) (test code = 759) 16.0 seconds 11.7-14.7 H INR (BEAKER) (test code = 370) 1.4 <=5.9 RECOMMENDED COUMADIN/WARFARIN INR THERAPY RANGESSTANDARD DOSE: 2.0 - 3.0 Inclu herb: PROPHYLAXIS for venous thrombosis, systemic embolization; TREATMENT for giulia ous thrombosis and/or pulmonary embolus.HIGH RISK: Target INR is 2.5-3.5 for pat ients with mechanical heart valves.POCT-GLUCOSE [id number] 00:01:00* Test Item Value Reference Range Interpretation Comments POC-GLUCOSE METER (BEAKER) (test code = 1538) 144 mg/dL 70-110 H TESTED AT [facility] [address] [facility] [address] POCT-GLUCOSE [id number] 18:04:00* Test Item Value Reference Range Interpretation Comments POC-GLUCOSE METER (BEAKER) (test code = 1538) 113 mg/dL 70-110 H TESTED AT [facility] [address] [facility] [address] POCT-GLUCOSE [id number] 11:48:00* Test Item Value Reference Range Interpretation Comments POC-GLUCOSE METER (BEAKER) (test code = 1538) 92 mg/dL 70-110 TESTED AT [facility] [address] [facility] [address] CBC W/PLT COUNT & AUTO [id number] 10:15:00* Test Item Value Reference Range Interpretation [...] Received comment: User comments: Slide comments: POCT-GLUCOSE [id number] 06:36:00* Test Item Value Reference Range Interpretation Comments POC-GLUCOSE METER (BEAKER) (test code = 1538) 107 mg/dL 70-110 TESTED AT [facility] [address] [facility] [address] [id number] 05:42:00* Test Item Value Reference Range Interpretation Comments MAGNESIUM (BEAKER) (test code = 627) 1.9 mg/dL 1.6-2.6 Specimen slightly hemolyzed BASIC METABOLIC [id number] 05:42:00* Test Item Value Reference Range Interpretation [...] FOR DIALYSIS PATIENTS. Specimen moderately ictericHEPATIC FUNCTION [id number] 05:42:00* Test Item Value Reference Range Interpretation [...] 6-55 H Specimen slightly hemolyzed Specimen moderately [id number] 05:35:00* Test Item Value Reference Range Interpretation Comments PARTIAL THROMBOPLASTIN TIME (BEAKER) (test code = 760) 40.6 seconds 22.5-36.0 H PROTHROMBIN TIME/[id number] 05:34:00* Test Item Value Reference Range Interpretation Comments PROTIME (BEAKER) (test code = 759) 16.0 seconds 11.7-14.7 H INR (BEAKER) (test code = 370) 1.3 <=5.9 RECOMMENDED COUMADIN/WARFARIN INR THERAPY RANGESSTANDARD DOSE: 2.0 - 3.0 Inclu herb: PROPHYLAXIS for venous thrombosis, systemic embolization; TREATMENT for giulia ous thrombosis and/or pulmonary embolus.HIGH RISK: Target INR is 2.5-3.5 for pat ients with mechanical heart valves.POCT-GLUCOSE [id number] 00:32:00* Test Item Value Reference Range Interpretation Comments POC-GLUCOSE METER (BEAKER) (test code = 1538) 106 mg/dL 70-110 TESTED AT [facility] [address] [facility] [address] RAD, CHEST, 1 VIEW, NON [id number] 18:48:00Reason for exam:->SOBShould this be performed at [...] Garcia Verified Date/Time: 07/03/2018 18:48:11 Reading Location: [address] Consult Reading Room -GLUCOSE [id number] 17:36:00* Test Item Value Reference Range Interpretation Comments POC-GLUCOSE METER (BEAKER) (test code = 1538) 130 mg/dL 70-110 H TESTED AT [facility] [address] [facility] [address] HEMOGLOBIN AND [id number] 14:44:00* Test Item Value Reference Range Interpretation Comments HEMOGLOBIN (BEAKER) (test code = 410) 8.1 GM/DL 13.7-17.5 L HEMATOCRIT (BEAKER) (test code = 411) 25.8 % 40.1-51.0 L CBC W/PLT COUNT & AUTO [id number] 12:53:00* Test Item Value Reference Range Interpretation [...] MDReport Verified Date/Time: 07/03/2018 07:23:40 Reading Location: [facility] Radiology Reading Room -GLUCOSE [id number] 06:01:00* Test Item Value Reference Range Interpretation Comments POC-GLUCOSE METER (BEAKER) (test code = 1538) 203 mg/dL 70-110 H TESTED AT [facility] [address] [facility] [address] [id number] 05:39:00* Test Item Value Reference Range Interpretation Comments MAGNESIUM (BEAKER) (test code = 627) 1.7 mg/dL 1.6-2.6 BASIC METABOLIC [id number] 05:39:00* Test Item Value Reference Range Interpretation [...] FOR DIALYSIS PATIENTS. Specimen moderately ictericHEPATIC FUNCTION [id number] 05:39:00* Test Item Value Reference Range Interpretation [...] 347) 125 U/L 6-55 H Specimen moderately [id number] 05:10:00* Test Item Value Reference Range Interpretation Comments PARTIAL THROMBOPLASTIN TIME (BEAKER) (test code = 760) 41.9 seconds 22.5-36.0 H PROTHROMBIN TIME/[id number] 05:09:00* Test Item Value Reference Range Interpretation [...] pat ients with mechanical heart valves.HEMOGLOBIN AND [id number] 00:58:00 * Test Item Value Reference Range Interpretation Comments HEMOGLOBIN (BEAKER) (test code = 410) 8.3 GM/DL 13.7-17.5 L HEMATOCRIT (BEAKER) (test code = 411) 26.1 % 40.1-51.0 L POCT-GLUCOSE [id number] 23:25:00* Test Item Value Reference Range Interpretation Comments POC-GLUCOSE METER (BEAKER) (test code = 1538) 179 mg/dL 70-110 H TESTED AT [place] [id number] [facility] [address] POCT-GLUCOSE [id number] 18:01:00* Test Item Value Reference Range Interpretation Comments POC-GLUCOSE METER (BEAKER) (test code = 1538) 175 mg/dL 70-110 H TESTED AT [place] [id number] [facility] [address] HEMOGLOBIN AND [id number] 17:25:00* Test Item Value Reference Range Interpretation Comments HEMOGLOBIN (BEAKER) (test code = 410) 7.9 GM/DL 13.7-17.5 L HEMATOCRIT (BEAKER) (test code = 411) 24.0 % 40.1-51.0 L CBC W/PLT COUNT & AUTO [id number] 13:26:00* Test Item Value Reference Range Interpretation [...] Received comment: User comments: Slide comments: POCT-GLUCOSE [id number] 11:58:00* Test Item Value Reference Range Interpretation Comments POC-GLUCOSE METER (BEAKER) (test code = 1538) 148 mg/dL 70-110 H TESTED AT [facility] [address] [facility] [address] RAD, CHEST, 1 VIEW, NON [id number] 07:41:00Reason for exam:->Pulmonary edema evaluationShould this be [...] MDReport Verified Date/Time: 07/02/2018 07:41:39 Reading Location: [facility] Radiology Reading Room 7705-13-02 07:01:00* Test Item Value Reference Range Interpretation Comments PARTIAL THROMBOPLASTIN TIME (BEAKER) (test code = 760) 46.2 seconds 22.5-36.0 H PROTHROMBIN TIME/[id number] 06:59:00* Test Item Value Reference Range Interpretation [...] pat ients with mechanical heart valves.HEMOGLOBIN AND [id number] 06:48:00 * Test Item Value Reference Range Interpretation Comments HEMOGLOBIN (BEAKER) (test code = 410) 7.9 GM/DL 13.7-17.5 L HEMATOCRIT (BEAKER) (test code = 411) 25.0 % 40.1-51.0 L POCT-GLUCOSE [id number] 06:17:00* Test Item Value Reference Range Interpretation Comments POC-GLUCOSE METER (BEAKER) (test code = 1538) 170 mg/dL 70-110 H TESTED AT [facility] [address] [facility] [address] CREATINE KINASE (CK)2018-07-02 03:50:00* Test Item Value Reference Range Interpretation Comments CREATINE KINASE TOTAL (BEAKER) (test code = 380) 17 U/L 29-20 0 L [id number] 03:44:00* Test Item Value Reference Range Interpretation Comments MAGNESIUM (BEAKER) (test code = 627) 1.9 mg/dL 1.6-2.6 Specimen slightly hemolyzed BASIC METABOLIC [id number] 03:44:00* Test Item Value Reference Range Interpretation [...] FOR DIALYSIS PATIENTS. Specimen moderately ictericHEPATIC FUNCTION [id number] 03:44:00* Test Item Value Reference Range Interpretation [...] Specimen slightly hemolyzed Specimen moderately ictericHEMOGLOBIN AND [id number] 03:08:00* Test Item Value Reference Range Interpretation Comments HEMOGLOBIN (BEAKER) (test code = 410) 7.9 GM/DL 13.7-17.5 L HEMATOCRIT (BEAKER) (test code = 411) 24.8 % 40.1-51.0 L POCT-GLUCOSE [id number] 23:24:00* Test Item Value Reference Range Interpretation Comments POC-GLUCOSE METER (BEAKER) (test code = 1538) 155 mg/dL 70-110 H TESTED AT [facility] [address] [facility] [address] HEMOGLOBIN AND [id number] 18:35:00* Test Item Value Reference Range Interpretation Comments HEMOGLOBIN (BEAKER) (test code = 410) 7.9 GM/DL 13.7-17.5 L HEMATOCRIT (BEAKER) (test code = 411) 24.1 % 40.1-51.0 L POCT-GLUCOSE [id number] 17:49:00* Test Item Value Reference Range Interpretation Comments POC-GLUCOSE METER (BEAKER) (test code = 1538) 148 mg/dL 70-110 H TESTED AT [facility] [address] [facility] [address] POCT-GLUCOSE [id number] 11:44:00* Test Item Value Reference Range Interpretation Comments POC-GLUCOSE METER (BEAKER) (test code = 1538) 151 mg/dL 70-110 H TESTED AT [facility] [address] [facility] [address] HEMOGLOBIN AND [id number] 10:59:00* Test Item Value Reference Range Interpretation Comments HEMOGLOBIN (BEAKER) (test code = 410) 8.0 GM/DL 13.7-17.5 L HEMATOCRIT (BEAKER) (test code = 411) 24.0 % 40.1-51.0 L RAD, CHEST, 1 VIEW, NON [id number] 08:47:00Reason for exam:->Pulmonary edema evaluationShould this be [...] Valenzuela Verified Date/Time: 07/01/2018 08:47:41 Reading Location: [facility] Diagnostic Imaging Reading Room - [place] [address] -GLUCOSE [id number] 06:47:00 * Test Item Value Reference Range Interpretation Comments POC-GLUCOSE METER (BEAKER) (test code = 1538) 153 mg/dL 70-110 H TESTED AT [facility] [address] [facility] [address] [id number] 04:06:00* Test Item Value Reference Range Interpretation Comments MAGNESIUM (BEAKER) (test code = 627) 1.9 mg/dL 1.6-2.6 BASIC METABOLIC [id number] 04:06:00* Test Item Value Reference Range Interpretation [...] FOR DIALYSIS PATIENTS. Specimen moderately ictericHEPATIC FUNCTION [id number] 04:06:00* Test Item Value Reference Range Interpretation [...] 347) 145 U/L 6-55 H Specimen moderately [id number] 03:50:00* Test Item Value Reference Range Interpretation Comments PARTIAL THROMBOPLASTIN TIME (BEAKER) (test code = 760) 46.8 seconds 22.5-36.0 H PROTHROMBIN TIME/[id number] 03:49:00* Test Item Value Reference Range Interpretation [...] mechanical heart valves.CBC W/PLT COUNT & AUTO [id number] 03:32:00* Test Item Value Reference Range Interpretation [...] 2801) 2 % 0-1 H HEMOGLOBIN AND [id number] 03:20:00* Test Item Value Reference Range Interpretation Comments HEMOGLOBIN (BEAKER) (test code = 410) 7.7 GM/DL 13.7-17.5 L HEMATOCRIT (BEAKER) (test code = 411) 24.3 % 40.1-51.0 L POCT-GLUCOSE [id number] 23:51:00* Test Item Value Reference Range Interpretation Comments POC-GLUCOSE METER (BEAKER) (test code = 1538) 146 mg/dL 70-110 H TESTED AT [address] [address] POCT-GLUCOSE [id number] 17:40:00* Test Item Value Reference Range Interpretation Comments POC-GLUCOSE METER (BEAKER) (test code = 1538) 194 mg/dL 70-110 H TESTED AT [address] [address] HEMOGLOBIN AND [id number] 17:33:00* Test Item Value Reference Range Interpretation Comments HEMOGLOBIN (BEAKER) (test code = 410) 7.9 GM/DL 13.7-17.5 L HEMATOCRIT (BEAKER) (test code = 411) 24.6 % 40.1-51.0 L CBC W/PLT COUNT & AUTO [id number] 15:29:00* Test Item Value Reference Range Interpretation [...] Received comment: User comments: Slide comments: POCT-GLUCOSE [id number] 11:51:00* Test Item Value Reference Range Interpretation Comments POC-GLUCOSE METER (BEAKER) (test code = 1538) 191 mg/dL 70-110 H TESTED AT [facility] [address] [facility] [address] HEMOGLOBIN AND [id number] 09:19:00* Test Item Value Reference Range Interpretation Comments HEMOGLOBIN (BEAKER) (test code = 410) 7.8 GM/DL 13.7-17.5 L HEMATOCRIT (BEAKER) (test code = 411) 24.1 % 40.1-51.0 L RAD, CHEST, 1 VIEW, NON [id number] 08:34:00Reason for exam:->Pulmonary edema evaluationShould this be [...] MDReport Verified Date/Time: 06/30/2018 08:34:20 Reading Location: [address] Consult Reading Room ESIUM 2018-06-30 07:03:00* Test Item Value Reference Range Interpretation Comments MAGNESIUM (BEAKER) (test code = 627) 2.1 mg/dL 1.6-2.6 BASIC METABOLIC [id number] 07:03:00* Test Item Value Reference Range Interpretation [...] FOR DIALYSIS PATIENTS. Specimen moderately ictericHEPATIC FUNCTION [id number] 07:03:00* Test Item Value Reference Range Interpretation [...] 162 U/L 6-55 H Specimen moderately ictericPOCT-GLUCOSE [id number] 06:08:00* Test Item Value Reference Range Interpretation Comments POC-GLUCOSE METER (BEAKER) (test code = 1538) 127 mg/dL 70-110 H TESTED AT [address] [address] [id number] 06:06:00* Test Item Value Reference Range Interpretation Comments PARTIAL THROMBOPLASTIN TIME (BEAKER) (test code = 760) 27.4 seconds 22.5-36.0 PROTHROMBIN TIME/[id number] 06:05:00* Test Item Value Reference Range Interpretation [...] pat ients with mechanical heart valves.HEMOGLOBIN AND [id number] 00:04:00 * Test Item Value Reference Range Interpretation Comments HEMOGLOBIN (BEAKER) (test code = 410) 8.3 GM/DL 13.7-17.5 L HEMATOCRIT (BEAKER) (test code = 411) 25.4 % 40.1-51.0 L POCT-GLUCOSE [id number] 00:02:00* Test Item Value Reference Range Interpretation Comments POC-GLUCOSE METER (BEAKER) (test code = 1538) 140 mg/dL 70-110 H TESTED AT [facility] [address] [facility] [address] POCT-GLUCOSE [id number] 17:41:00* Test Item Value Reference Range Interpretation Comments POC-GLUCOSE METER (BEAKER) (test code = 1538) 155 mg/dL 70-110 H TESTED AT [facility] [address] [facility] [address] HEMOGLOBIN AND [id number] 16:00:00* Test Item Value Reference Range Interpretation Comments HEMOGLOBIN (BEAKER) (test code = 410) 8.2 GM/DL 13.7-17.5 L HEMATOCRIT (BEAKER) (test code = 411) 25.5 % 40.1-51.0 L BLOOD GAS, [id number] 15:50:00* Test Item Value Reference Range Interpretation [...] 30.0 % RAD, CHEST, 1 VIEW, NON [id number] 14:58:00Reason for exam:->Pulmonary edema evaluationShould this be performed at the bedside?->YesFINAL REPORT AP chest HISTORY: Pulmonary edema. COMPARISON: 06/28/2018. IMPRESSION: Tracheostomy tube and feeding tube present. Hypoinflation. Mild interstitial edema, increased from previous. No effusion or pneumothorax. Signed: Eric Andrade MDReport Verified Date/Time: 06/29/2018 14:58:10 Reading Location: [address] Reading Room W/PLT COUNT & AUTO [...] Received comment: User comments: Slide comments: POCT-GLUCOSE [id number] 12:20:00* Test Item Value Reference Range Interpretation Comments POC-GLUCOSE METER (BEAKER) (test code = 1538) 154 mg/dL 70-110 H TESTED AT [address] [address] [id number] 06:44:00* Test Item Value Reference Range Interpretation Comments PARTIAL THROMBOPLASTIN TIME (BEAKER) (test code = 760) 40.7 seconds 22.5-36.0 H PROTHROMBIN TIME/[id number] 06:43:00* Test Item Value Reference Range Interpretation Comments PROTIME (BEAKER) (test code = 759) 16.8 seconds 11.7-14.7 H INR (BEAKER) (test code = 370) 1.4 <=5.9 RECOMMENDED COUMADIN/WARFARIN INR THERAPY RANGESSTANDARD DOSE: 2.0 - 3.0 Inclu herb: PROPHYLAXIS for venous thrombosis, systemic embolization; TREATMENT for giulia ous thrombosis and/or pulmonary embolus.HIGH RISK: Target INR is 2.5-3.5 for pat ients with mechanical heart valves.POCT-GLUCOSE [id number] 06:07:00* Test Item Value Reference Range Interpretation Comments POC-GLUCOSE METER (BEAKER) (test code = 1538) 177 mg/dL 70-110 H TESTED AT [facility] [address] [facility] [address] [id number] 04:04:00* Test Item Value Reference Range Interpretation Comments MAGNESIUM (BEAKER) (test code = 627) 2.0 mg/dL 1.6-2.6 Specimen slightly hemolyzed BASIC METABOLIC [id number] 04:04:00* Test Item Value Reference Range Interpretation [...] FOR DIALYSIS PATIENTS. Specimen markedly ictericHEPATIC FUNCTION [id number] 04:04:00* Test Item Value Reference Range Interpretation [...] Specimen slightly hemolyzed Specimen markedly ictericHEMOGLOBIN AND [id number] 01:37:00* Test Item Value Reference Range Interpretation Comments HEMOGLOBIN (BEAKER) (test code = 410) 7.7 GM/DL 13.7-17.5 L HEMATOCRIT (BEAKER) (test code = 411) 23.9 % 40.1-51.0 L POCT-GLUCOSE [id number] 00:12:00* Test Item Value Reference Range Interpretation Comments POC-GLUCOSE METER (BEAKER) (test code = 1538) 158 mg/dL 70-110 H TESTED AT [facility] [address] [facility] [address] SODIUM, RANDOM [id number] 20:36:00* Test Item Value Reference Range Interpretation Comments SODIUM URINE (BEAKER) (test code = 243) < meq/L Reference Range: No NormalsPOCT-GLUCOSE [id number] 20:24:00* Test Item Value Reference Range Interpretation Comments POC-GLUCOSE METER (BEAKER) (test code = 1538) 169 mg/dL 70-110 H TESTED AT [address] [address] HEMOGLOBIN AND [id number] 20:24:00* Test Item Value Reference Range Interpretation Comments HEMOGLOBIN (BEAKER) (test code = 410) 6.9 GM/DL 13.7-17.5 L HEMATOCRIT (BEAKER) (test code = 411) 21.1 % 40.1-51.0 L HEMOGLOBIN AND [id number] 18:35:00* Test Item Value Reference Range Interpretation Comments HEMOGLOBIN (BEAKER) (test code = 410) 6.7 GM/DL 13.7-17.5 L HEMATOCRIT (BEAKER) (test code = 411) 20.7 % 40.1-51.0 L YARI ANTIGEN WITH REFLEX TO [id number] 18:29:00* Test Item Value Reference Range Interpretation Comments YARI ANTIGEN (BEAKER) (test code = 1782) Positive YARI ANTIGEN [id number] 18:29:00* Test Item Value Reference Range Interpretation Comments YARI ANTIGEN TITER (BEAKER) (test code = 737) :2 POCT-GLUCOSE [id number] 17:43:00* Test Item Value Reference Range Interpretation Comments POC-GLUCOSE METER (BEAKER) (test code = 1538) 108 mg/dL 70-110 TESTED AT [facility] [address] [facility] [address] POCT-GLUCOSE [id number] 12:27:00* Test Item Value Reference Range Interpretation Comments POC-GLUCOSE METER (BEAKER) (test code = 1538) 152 mg/dL 70-110 H TESTED AT [facility] [address] [facility] [address] CBC W/PLT COUNT & AUTO [id number] 12:16:00* Test Item Value Reference Range Interpretation [...] 40.1-51.0 L RAD, CHEST, 1 VIEW, NON [id number] 09:28:00Reason for exam:->Pulmonary edema evaluationShould this be [...] MDReport Verified Date/Time: 06/28/2018 09:28:59 Reading Location: [facility] Radiology Reading Room - GLUCOSE [id number] 06:13:00* Test Item Value Reference Range Interpretation Comments POC-GLUCOSE METER (BEAKER) (test code = 1538) 123 mg/dL 70-110 H TESTED AT [facility] [address] [facility] [address] BASIC METABOLIC [id number] 05:57:00* Test Item Value Reference Range Interpretation [...] NOT APPLICABLE FOR DIALYSIS PATIENTS. Specimen markedly [id number] 05:56:00* Test Item Value Reference Range Interpretation Comments MAGNESIUM (BEAKER) (test code = 627) 2.3 mg/dL 1.6-2.6 HEPATIC FUNCTION [id number] 05:56:00* Test Item Value Reference Range Interpretation [...] 347) 180 U/L 6-55 H Specimen markedly [id number] 05:43:00* Test Item Value Reference Range Interpretation Comments PARTIAL THROMBOPLASTIN TIME (BEAKER) (test code = 760) 45.3 seconds 22.5-36.0 H PROTHROMBIN TIME/[id number] 05:42:00* Test Item Value Reference Range Interpretation Comments PROTIME (BEAKER) (test code = 759) 17.5 seconds 11.7-14.7 H INR (BEAKER) (test code = 370) 1.5 <=5.9 RECOMMENDED COUMADIN/WARFARIN INR THERAPY RANGESSTANDARD DOSE: 2.0 - 3.0 Inclu herb: PROPHYLAXIS for venous thrombosis, systemic embolization; TREATMENT for giulia ous thrombosis and/or pulmonary embolus.HIGH RISK: Target INR is 2.5-3.5 for pat ients with mechanical heart valves.POCT-GLUCOSE [id number] 00:23:00* Test Item Value Reference Range Interpretation Comments POC-GLUCOSE METER (BEAKER) (test code = 1538) 183 mg/dL 70-110 H TESTED AT [facility] [address] [facility] [address] HEMOGLOBIN AND [id number] 20:24:00* Test Item Value Reference Range Interpretation Comments HEMOGLOBIN (BEAKER) (test code = 410) 7.4 GM/DL 13.7-17.5 L HEMATOCRIT (BEAKER) (test code = 411) 22.3 % 40.1-51.0 L POCT-GLUCOSE [id number] 18:08:00* Test Item Value Reference Range Interpretation Comments POC-GLUCOSE METER ([facility]) (test code = 1538) 171 mg/dL 70-110 H TESTED AT [facility] [address] [facility] [address] TISSUE [id number] 17:16:00Surgical Pathology Report Case: [id number] Authorizing Provider: Seven Tubbs MD Collected: 06/19/2018 1536 Ordering Location: [address] Received: 06/20/2018 0750 Pathologist: Jb Brock MD Specimen: Cecum, Cecal Ulcer Bx COLON, CECUM, ULCER, BIOPSY: - ATYPICAL LYMPHOID PROLIFERATION 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 Samm Arenas, [facility] Hematopathology, who concurs with the diagnosis. [id number] Cecal ulcer biops yThe specimen is received in a formalin-filled container and labeled with the p atient's information and labeled "cecal ulcer biopsy" and consists of a 0.2 cm f ragment of guajardo tissue, submitted entirely A1. CG/pl Performed.The following carlos tional immunohistochemical stains, were evaluated on the biopsy with appropriate controls:CD3, CD5, CD10, CD20, BCL-2, BCL-6, CyclinD1, Ki-67, Reform, Lambda, PA X-5.CD3, CD5 and BCL-2 have similar patterns and highlight T lymphocytes. CD20 a nd PAX-5 highlights increased large, atypical appearing B cells. Reform and Santana da demonstrate polytypic plasma cells. [...] KI-67.Immunohistochemistry technical te sting was performed at [facility], Pathology Laboratory wh ere it was developed [...] and its performance c haracteristics determined by [facility], Pathology Laboratory. It has not been [...] to perform high complexity clinic al laboratory testing.[facility], Department of Pathology, [address] [place] [address], [place] [address], [facility], [address] [place] [address], [facility], [address] [place] [address], b-TYPE NATRIURETIC FACTOR (BNP) 2018-06-27 13:44:00* Test Item Value Reference Range Interpretation Comments B-TYPE NATRIURETIC PEPTIDE (BEAKER) (test code = 700) 179 pg/mL 0-100 H HEMOGLOBIN AND [id number] 13:18:00* Test Item Value Reference Range Interpretation Comments HEMOGLOBIN (BEAKER) (test code = 410) 7.9 GM/DL 13.7-17.5 L HEMATOCRIT (BEAKER) (test code = 411) 23.6 % 40.1-51.0 L CBC W/PLT COUNT & AUTO [id number] 13:10:00* Test Item Value Reference Range Interpretation [...] MDReport Verified Date/Time: 06/27/2018 12:39:10 Reading Location: [facility] Radiology Reading Room -GLUCOSE [id number] 11:38:00 * Test Item Value Reference Range Interpretation Comments POC-GLUCOSE METER (BEAKER) (test code = 1538) 181 mg/dL 70-110 H TESTED AT [address] [address] HEMOGLOBIN AND [id number] 09:34:00* Test Item Value Reference Range Interpretation Comments HEMOGLOBIN (BEAKER) (test code = 410) 8.1 GM/DL 13.7-17.5 L HEMATOCRIT (BEAKER) (test code = 411) 24.9 % 40.1-51.0 L POCT-GLUCOSE [id number] 06:28:00* Test Item Value Reference Range Interpretation Comments POC-GLUCOSE METER (BEAKER) (test code = 1538) 161 mg/dL 70-110 H TESTED AT [address] [address] BASIC METABOLIC [id number] 06:04:00* Test Item Value Reference Range Interpretation [...] NOT APPLICABLE FOR DIALYSIS PATIENTS. Specimen markedly [id number] 06:00:00* Test Item Value Reference Range Interpretation Comments MAGNESIUM (BEAKER) (test code = 627) 1.9 mg/dL 1.6-2.6 HEPATIC FUNCTION [id number] 06:00:00* Test Item Value Reference Range Interpretation [...] 347) 170 U/L 6-55 H Specimen markedly [id number] 05:56:00* Test Item Value Reference Range Interpretation Comments PARTIAL THROMBOPLASTIN TIME (BEAKER) (test code = 760) 41.4 seconds 22.5-36.0 H PROTHROMBIN TIME/[id number] 05:55:00* Test Item Value Reference Range Interpretation [...] pat ients with mechanical heart valves.HEMOGLOBIN AND [id number] 05:33:00 * Test Item Value Reference Range Interpretation Comments HEMOGLOBIN (BEAKER) (test code = 410) 7.5 GM/DL 13.7-17.5 L HEMATOCRIT (BEAKER) (test code = 411) 23.3 % 40.1-51.0 L POCT-GLUCOSE [id number] 00:28:00* Test Item Value Reference Range Interpretation Comments POC-GLUCOSE METER (BEAKER) (test code = 1538) 153 mg/dL 70-110 H TESTED AT [address] [address] HEMOGLOBIN AND [id number] 00:15:00* Test Item Value Reference Range Interpretation Comments HEMOGLOBIN (BEAKER) (test code = 410) 6.8 GM/DL 13.7-17.5 L HEMATOCRIT (BEAKER) (test code = 411) 20.6 % 40.1-51.0 L HEMOGLOBIN AND [id number] 20:31:00* Test Item Value Reference Range Interpretation Comments HEMOGLOBIN (BEAKER) (test code = 410) 7.4 GM/DL 13.7-17.5 L HEMATOCRIT (BEAKER) (test code = 411) 22.5 % 40.1-51.0 L HEMOGLOBIN AND [id number] 18:54:00* Test Item Value Reference Range Interpretation Comments HEMOGLOBIN (BEAKER) (test code = 410) 7.4 GM/DL 13.7-17.5 L HEMATOCRIT (BEAKER) (test code = 411) 22.7 % 40.1-51.0 L POCT-GLUCOSE [id number] 18:17:00* Test Item Value Reference Range Interpretation Comments POC-GLUCOSE METER (BEAKER) (test code = 1538) 133 mg/dL 70-110 H TESTED AT [facility] [address] [facility] [address] [id number] 16:32:00* Test Item Value Reference Range Interpretation Comments FIBRINOGEN LEVEL (BEAKER) (test code = 658) 331 mg/dl 225-434 PT/[id number] 15:10:00* Test Item Value Reference Range Interpretation [...] pat ients with mechanical heart valves.HEMOGLOBIN AND [id number] 14:55:00 * Test Item Value Reference Range Interpretation Comments HEMOGLOBIN (BEAKER) (test code = 410) 7.7 GM/DL 13.7-17.5 L HEMATOCRIT (BEAKER) (test code = 411) 24.0 % 40.1-51.0 L CBC W/PLT COUNT & AUTO [id number] 14:09:00* Test Item Value Reference Range Interpretation [...] Received comment: User comments: Slide comments: BLOOD [id number] 14:03:00* Test Item Value Reference Range Interpretation Comments CULTURE (BEAKER) (test code = 1095) No growth in 5 days BLOOD [id number] 14:03:00* Test Item Value Reference Range Interpretation Comments CULTURE (BEAKER) (test code = 1095) No growth in 5 days POCT-GLUCOSE [id number] 11:51:00* Test Item Value Reference Range Interpretation Comments POC-GLUCOSE METER (BEAKER) (test code = 1538) 176 mg/dL 70-110 H TESTED AT [facility] [address] [facility] [address] HEMOGLOBIN AND [id number] 08:23:00* Test Item Value Reference Range Interpretation Comments HEMOGLOBIN (BEAKER) (test code = 410) 6.2 GM/DL 13.7-17.5 L HEMATOCRIT (BEAKER) (test code = 411) 18.9 % 40.1-51.0 L POCT-GLUCOSE [id number] 07:35:00* Test Item Value Reference Range Interpretation Comments POC-GLUCOSE METER (BEAKER) (test code = 1538) 172 mg/dL 70-110 H TESTED AT [facility] [address] [facility] [address] RAD, CHEST, 1 VIEW, NON [id number] 07:26:00Reason for exam:->Pulmonary edema evaluationShould this be [...] osseous abnormalities are identified. Signed: Rafal Madrigal [facility] Verified Date/Time: 06/26/2018 07:26:15 Reading Location: [facility] Radiology Reading Room [id number] 05:04:00* Test Item Value Reference Range Interpretation Comments MAGNESIUM (BEAKER) (test code = 627) 1.9 mg/dL 1.6-2.6 BASIC METABOLIC [id number] 05:04:00* Test Item Value Reference Range Interpretation [...] FOR DIALYSIS PATIENTS. Specimen markedly ictericHEPATIC FUNCTION [id number] 05:04:00* Test Item Value Reference Range Interpretation [...] 347) 202 U/L 6-55 H Specimen markedly [id number] 04:54:00* Test Item Value Reference Range Interpretation Comments PARTIAL THROMBOPLASTIN TIME (BEAKER) (test code = 760) 39.3 seconds 22.5-36.0 H PROTHROMBIN TIME/[id number] 04:53:00* Test Item Value Reference Range Interpretation [...] pat ients with mechanical heart valves.HEMOGLOBIN AND [id number] 04:48:00 * Test Item Value Reference Range Interpretation Comments HEMOGLOBIN (BEAKER) (test code = 410) 7.2 GM/DL 13.7-17.5 L HEMATOCRIT (BEAKER) (test code = 411) 22.4 % 40.1-51.0 L HEMOGLOBIN AND [id number] 00:55:00* Test Item Value Reference Range Interpretation Comments HEMOGLOBIN (BEAKER) (test code = 410) 7.9 GM/DL 13.7-17.5 L HEMATOCRIT (BEAKER) (test code = 411) 24.4 % 40.1-51.0 L POCT-GLUCOSE [id number] 00:11:00* Test Item Value Reference Range Interpretation Comments POC-GLUCOSE METER (BEAKER) (test code = 1538) 130 mg/dL 70-110 H TESTED AT [facility] [address] [facility] [address] HEMOGLOBIN AND [id number] 21:55:00* Test Item Value Reference Range Interpretation Comments HEMOGLOBIN (BEAKER) (test code = 410) 7.8 GM/DL 13.7-17.5 L HEMATOCRIT (BEAKER) (test code = 411) 24.7 % 40.1-51.0 L HEMOGLOBIN AND [id number] 19:15:00* Test Item Value Reference Range Interpretation Comments HEMOGLOBIN (BEAKER) (test code = 410) 8.2 GM/DL 13.7-17.5 L HEMATOCRIT (BEAKER) (test code = 411) 25.5 % 40.1-51.0 L POCT-GLUCOSE [id number] 18:49:00* Test Item Value Reference Range Interpretation Comments POC-GLUCOSE METER (BEAKER) (test code = 1538) 159 mg/dL 70-110 H TESTED AT [facility] [address] [facility] [address] POCT-GLUCOSE [id number] 17:29:00* Test Item Value Reference Range Interpretation Comments POC-GLUCOSE METER (BEAKER) (test code = 1538) 104 mg/dL 70-110 TESTED AT [facility] [address] [facility] [address] CT, CTA [id number] 14:14:00FINAL REPORT TECHNIQUE: CTA of the abdomen [...] Verified Date/Time: 06/25/2018 14:14:40 Readsorin manjarrez Location: [address] Body Reading Room GLOBIN AND [id number] 12:47:00* Test Item Value Reference Range Interpretation Comments HEMOGLOBIN (BEAKER) (test code = 410) 7.9 GM/DL 13.7-17.5 L HEMATOCRIT (BEAKER) (test code = 411) 24.6 % 40.1-51.0 L POCT-GLUCOSE [id number] 12:19:00* Test Item Value Reference Range Interpretation Comments POC-GLUCOSE METER (BEAKER) (test code = 1538) 161 mg/dL 70-110 H TESTED AT [facility] [address] [facility] [address] CBC W/PLT COUNT & AUTO [id number] 10:47:00* Test Item Value Reference Range Interpretation [...] 40.1-51.0 L RAD, CHEST, 1 VIEW, NON [id number] 07:29:00Reason for exam:->Pulmonary edema evaluationShould this be [...] MDReport Verified Date/Time: 06/25/2018 07:29:59 Reading Location: [facility] Radiology Reading Room [facility] signed by: ANDREW SLOAN M.D. on 06/25/2018 07:29 AM POCT-GLUCOSE METER 2018-06-25 06:28:00* Test Item Value Reference Range Interpretation Comments POC-GLUCOSE METER (BEAKER) (test code = 1538) 174 mg/dL 70-110 H TESTED AT [address] [address] [id number] 05:46:00* Test Item Value Reference Range Interpretation Comments PARTIAL THROMBOPLASTIN TIME (BEAKER) (test code = 760) 52.2 seconds 22.5-36.0 H PROTHROMBIN [id number] 05:44:00* Test Item Value Reference Range Interpretation Comments PROTIME (BEAKER) (test code = 759) 18.3 seconds 11.7-14.7 H INR (BEAKER) (test code = 370) 1.6 <=5.9 RECOMMENDED COUMADIN/WARFARIN INR THERAPY RANGESSTANDARD DOSE: 2.0 - 3.0 Inclu herb: PROPHYLAXIS for venous thrombosis, systemic embolization; TREATMENT for giulia ous thrombosis and/or pulmonary embolus.HIGH RISK: Target INR is 2.5-3.5 for pat ients with mechanical heart valves.[id number] 05:41:00* Test Item Value Reference Range Interpretation Comments MAGNESIUM (BEAKER) (test code = 627) 2.2 mg/dL 1.6-2.6 BASIC METABOLIC [id number] 05:41:00* Test Item Value Reference Range Interpretation [...] FOR DIALYSIS PATIENTS. Specimen markedly ictericHEPATIC FUNCTION [id number] 05:41:00* Test Item Value Reference Range Interpretation [...] 24 U/L 29-20 0 L BLOOD GAS, [id number] 05:35:00* Test Item Value Reference Range Interpretation [...] code = 1819) 40.0 % LACTIC ACID, [id number] 05:32:00* Test Item Value Reference Range Interpretation Comments LACTATE BLOOD ARTERIAL (2) (BEAKER) (test code = 2874) 0.5 mmol/L 0.5-2.2 Specimen markedly ictericPOCT-GLUCOSE [id number] 00:35:00* Test Item Value Reference Range Interpretation Comments POC-GLUCOSE METER (BEAKER) (test code = 1538) 140 mg/dL 70-110 H TESTED AT [address] [address] HEMOGLOBIN AND [id number] 00:32:00* Test Item Value Reference Range Interpretation Comments HEMOGLOBIN (BEAKER) (test code = 410) 8.3 GM/DL 13.7-17.5 L HEMATOCRIT (BEAKER) (test code = 411) 25.6 % 40.1-51.0 L POCT-GLUCOSE [id number] 18:59:00* Test Item Value Reference Range Interpretation Comments POC-GLUCOSE METER (BEAKER) (test code = 1538) 124 mg/dL 70-110 H TESTED AT [address] [address] HEMOGLOBIN AND [id number] 18:36:00* Test Item Value Reference Range Interpretation Comments HEMOGLOBIN (BEAKER) (test code = 410) 8.1 GM/DL 13.7-17.5 L HEMATOCRIT (BEAKER) (test code = 411) 25.1 % 40.1-51.0 L POCT-GLUCOSE [id number] 12:21:00* Test Item Value Reference Range Interpretation Comments POC-GLUCOSE METER (BEAKER) (test code = 1538) 133 mg/dL 70-110 H TESTED AT [facility] [address] [facility] [address] RAD, CHEST, 1 VIEW, NON [id number] 09:38:00Reason for exam:->Pulmonary edema evaluationShould this be performed at the bedside?->YesFINAL REPORT Comparison: 06/23/2018 TECHNIQUE: Single view of the chest FINDINGS: Lung volumes are low. There is mild vascular congestion. No gross new lung parenchymal changes. Support lines and tubes are stable. Signed: Roberth Camp MDReport Verified Date/Time: 06/24/2018 09:38:51 Reading Location: [facility] Radiology Reading Room W/PLT COUNT & AUTO [id number] 09:00:00* Test Item Value Reference Range Interpretation [...] Received comment: User comments: Slide comments: POCT-GLUCOSE [id number] 06:48:00* Test Item Value Reference Range Interpretation Comments POC-GLUCOSE METER (BEAKER) (test code = 1538) 122 mg/dL 70-110 H TESTED AT [facility] [address] [facility] [address] POCT-GLUCOSE [id number] 05:09:00* Test Item Value Reference Range Interpretation Comments POC-GLUCOSE METER (BEAKER) (test code = 1538) 138 mg/dL 70-110 H TESTED AT [facility] [address] [facility] [address] BLOOD GAS, [id number] 04:42:00* Test Item Value Reference Range Interpretation [...] (BEAKER) (test code = 1819) 40.0 % [id number] 04:32:00* Test Item Value Reference Range Interpretation Comments MAGNESIUM (BEAKER) (test code = 627) 2.0 mg/dL 1.6-2.6 BASIC METABOLIC [id number] 04:32:00* Test Item Value Reference Range Interpretation [...] FOR DIALYSIS PATIENTS. Specimen markedly ictericHEPATIC FUNCTION [id number] 04:32:00* Test Item Value Reference Range Interpretation [...] U/L 6-55 H Specimen markedly ictericLACTIC ACID, [id number] 04:22:00* Test Item Value Reference Range Interpretation Comments LACTATE BLOOD ARTERIAL (2) (BEAKER) (test code = 2874) 0.6 mmol/L 0.5-2.2 Specimen moderately [id number] 04:17:00* Test Item Value Reference Range Interpretation Comments PARTIAL THROMBOPLASTIN TIME (BEAKER) (test code = 760) 50.9 seconds 22.5-36.0 H PROTHROMBIN TIME/[id number] 04:16:00* Test Item Value Reference Range Interpretation Comments PROTIME (BEAKER) (test code = 759) 18.0 seconds 11.7-14.7 H INR (BEAKER) (test code = 370) 1.6 <=5.9 RECOMMENDED COUMADIN/WARFARIN INR THERAPY RANGESSTANDARD DOSE: 2.0 - 3.0 Inclu herb: PROPHYLAXIS for venous thrombosis, systemic embolization; TREATMENT for giulia ous thrombosis and/or pulmonary embolus.HIGH RISK: Target INR is 2.5-3.5 for pat ients with mechanical heart valves.POCT-GLUCOSE [id number] 00:29:00* Test Item Value Reference Range Interpretation Comments POC-GLUCOSE METER (BEAKER) (test code = 1538) 113 mg/dL 70-110 H TESTED AT [facility] [address] [facility] [address] POCT-GLUCOSE [id number] 18:51:00* Test Item Value Reference Range Interpretation Comments POC-GLUCOSE METER (BEAKER) (test code = 1538) 108 mg/dL 70-110 TESTED AT [address] [address] (CELLAVISION MANUAL DIFF)2018-06-23 16:53:00* Test Item Value [...] Slide comments: CBC W/PLT COUNT & AUTO [id number] 16:33:00* Test Item Value Reference Range Interpretation [...] 0-1 H CBC W/PLT COUNT & AUTO [id number] 13:52:00* Test Item Value Reference Range Interpretation [...] Received comment: User comments: Slide comments: POCT-GLUCOSE [id number] 11:56:00* Test Item Value Reference Range Interpretation Comments POC-GLUCOSE METER (BEAKER) (test code = 1538) 115 mg/dL 70-110 H TESTED AT [facility] [address] [facility] [address] [id number] 07:07:00* Test Item Value Reference Range Interpretation Comments MAGNESIUM (BEAKER) (test code = 627) 1.9 mg/dL 1.6-2.6 BASIC METABOLIC [id number] 07:07:00* Test Item Value Reference Range Interpretation [...] FOR DIALYSIS PATIENTS. Specimen markedly ictericHEPATIC FUNCTION [id number] 07:07:00* Test Item Value Reference Range Interpretation [...] U/L 6-55 H Specimen markedly ictericHEMOGLOBIN AND [id number] 06:51:00* Test Item Value Reference Range Interpretation Comments HEMOGLOBIN (BEAKER) (test code = 410) 8.2 GM/DL 13.7-17.5 L HEMATOCRIT (BEAKER) (test code = 411) 25.0 % 40.1-51.0 L POCT-GLUCOSE [id number] 06:44:00* Test Item Value Reference Range Interpretation Comments POC-GLUCOSE METER (BEAKER) (test code = 1538) 121 mg/dL 70-110 H TESTED AT [facility] [address] [facility] [address] LACTIC ACID, [id number] 06:44:00* Test Item Value Reference Range Interpretation Comments LACTATE BLOOD ARTERIAL (2) (BEAKER) (test code = 2874) 0.7 mmol/L 0.5-2.2 Specimen markedly [id number] 06:40:00* Test Item Value Reference Range Interpretation Comments PARTIAL THROMBOPLASTIN TIME (BEAKER) (test code = 760) 44.7 seconds 22.5-36.0 H PROTHROMBIN [id number] 06:39:00* Test Item Value Reference Range Interpretation [...] pat ients with mechanical heart valves.BLOOD GAS, [id number] 06:36:00* Test Item Value Reference Range Interpretation [...] 40.0 % RAD, CHEST, 1 VIEW, NON [id number] 04:52:00Reason for exam:->Pulmonary edema evaluationShould this be [...] MDReport Verified Date/Time: 06/23/2018 04:52:15 Reading Location: [address] Neuro Reading Room U/S, ABDOMINAL, [id number] 03:15:00Abdomen limited area? Add comment if clarification [...] MDReport Verified Date/Time: 06/23/2018 03:15:49 Reading Location: [facility] C013V Neuro Reading Room GLOBIN AND [id number] 01:05:00* Test Item Value Reference Range Interpretation Comments HEMOGLOBIN (BEAKER) (test code = 410) 8.4 GM/DL 13.7-17.5 L HEMATOCRIT (BEAKER) (test code = 411) 25.9 % 40.1-51.0 L POCT-GLUCOSE [id number] 00:43:00* Test Item Value Reference Range Interpretation Comments POC-GLUCOSE METER (BEAKER) (test code = 1538) 180 mg/dL 70-110 H TESTED AT [facility] [address] [facility] [address] HEMOGLOBIN AND [id number] 21:03:00* Test Item Value Reference Range Interpretation Comments HEMOGLOBIN (BEAKER) (test code = 410) 8.6 GM/DL 13.7-17.5 L HEMATOCRIT (BEAKER) (test code = 411) 25.8 % 40.1-51.0 L POCT-GLUCOSE [id number] 18:20:00* Test Item Value Reference Range Interpretation Comments POC-GLUCOSE METER (BEAKER) (test code = 1538) 265 mg/dL 70-110 H TESTED AT [facility] [address] [facility] [address] HEMOGLOBIN AND [id number] 12:41:00* Test Item Value Reference Range Interpretation Comments HEMOGLOBIN (BEAKER) (test code = 410) 7.6 GM/DL 13.7-17.5 L HEMATOCRIT (BEAKER) (test code = 411) 23.4 % 40.1-51.0 L POCT-GLUCOSE [id number] 12:29:00* Test Item Value Reference Range Interpretation Comments POC-GLUCOSE METER (BEAKER) (test code = 1538) 150 mg/dL 70-110 H TESTED AT [address] [address] RAD, CHEST, 1 VIEW, NON [id number] 08:40:00Reason for exam:->Pulmonary edema evaluationShould this be [...] [place] Verified Date/Time: 06/22/2018 08:40:31 Reading Location: [facility] C013T Transitional Reading Room - GLUCOSE [id number] 06:33:00* Test Item Value Reference Range Interpretation Comments POC-GLUCOSE METER (BEAKER) (test code = 1538) 159 mg/dL 70-110 H TESTED AT [facility] [address] [facility] [address] LACTIC ACID, [id number] 04:16:00* Test Item Value Reference Range Interpretation Comments LACTATE BLOOD ARTERIAL (2) (BEAKER) (test code = 2874) 0.5 mmol/L 0.5-2.2 Specimen markedly ictericBASIC METABOLIC [id number] 04:12:00* Test Item Value Reference Range Interpretation [...] APPLICABLE FOR DIALYSIS PATIENTS. Specimen markedly ictericCALCIUM, [id number] 04:10:00* Test Item Value Reference Range Interpretation Comments CALCIUM IONIZED (BEAKER) (test code = 698) 1.28 mmol/L 1.12-1.27 H PH, BLOOD (BEAKER) (test code = 1810) 7.41 Check serum Ionized Calcium level after 4 hours after IV Calcium replacement. BLOOD GAS, [id number] 04:05:00* Test Item Value Reference Range Interpretation [...] 40.0 % CBC W/PLT COUNT & AUTO [id number] 04:02:00* Test Item Value Reference Range Interpretation [...] code = 2801) 4 % 0-1 H [id number] 03:56:00* Test Item Value Reference Range Interpretation Comments MAGNESIUM (BEAKER) (test code = 627) 2.0 mg/dL 1.6-2.6 HEPATIC FUNCTION [id number] 03:56:00* Test Item Value Reference Range Interpretation [...] 347) 136 U/L 6-55 H Specimen markedly [id number] 03:53:00* Test Item Value Reference Range Interpretation Comments PARTIAL THROMBOPLASTIN TIME (BEAKER) (test code = 760) 40.4 seconds 22.5-36.0 H PROTHROMBIN [id number] 03:52:00* Test Item Value Reference Range Interpretation [...] pat ients with mechanical heart valves.HEMOGLOBIN AND [id number] 03:41:00 * Test Item Value Reference Range Interpretation Comments HEMOGLOBIN (BEAKER) (test code = 410) 8.1 GM/DL 13.7-17.5 L HEMATOCRIT (BEAKER) (test code = 411) 24.4 % 40.1-51.0 L BLOOD [id number] 01:25:00* Test Item Value Reference Range Interpretation Comments CULTURE (BEAKER) (test code = 1095) No growth in 5 days BLOOD [id number] 01:25:00* Test Item Value Reference Range Interpretation Comments CULTURE (BEAKER) (test code = 1095) No growth in 5 days HEMOGLOBIN AND [id number] 00:32:00* Test Item Value Reference Range Interpretation Comments HEMOGLOBIN (BEAKER) (test code = 410) 9.1 GM/DL 13.7-17.5 L HEMATOCRIT (BEAKER) (test code = 411) 27.2 % 40.1-51.0 L POCT-GLUCOSE [id number] 00:18:00* Test Item Value Reference Range Interpretation Comments POC-GLUCOSE METER (BEAKER) (test code = 1538) 189 mg/dL 70-110 H TESTED AT [facility] [address] [facility] [address] ANG, VISCERAL [id number] 22:13:00FINAL REPORT Mesenteric Arteriography Clinical History:GI bleed [...] inch guide wire was advanced. A 5 [place] sheath was util ized. A 5 syrian Baker catheter was placed selectively into the [...] Rogel Verified Date/Time: 06/21/2018 22:13:37 Reading Location: [address] Body Reading Room Electronically signed by: KAI ROGEL M.D. on 05/28 10:13 PM RAD, ABDOMEN/KUB, 1 VIEW [id number] 20:57:00Reason for exam:-> abdominal distention sp coilsFINAL [...] MDReport Verified Date/Time: 06/21/2018 20:57:09 Reading Location: [facility] C013W Consult Reading Room W/PLT COUNT & AUTO [id number] 18:35:00* Test Item Value Reference Range Interpretation [...] Received comment: User comments: Slide comments: POCT-GLUCOSE [id number] 17:53:00* Test Item Value Reference Range Interpretation Comments POC-GLUCOSE METER (BEAKER) (test code = 1538) 212 mg/dL 70-110 H TESTED AT [facility] [address] [facility] [address] BASIC METABOLIC [id number] 17:52:00* Test Item Value Reference Range Interpretation [...] FOR DIALYSIS PATIENTS. Specimen markedly ictericLACTIC ACID, [id number] 17:45:00* Test Item Value Reference Range Interpretation Comments LACTATE BLOOD ARTERIAL (2) (BEAKER) (test code = 2874) 0.6 mmol/L 0.5-2.2 Specimen markedly ictericHEMOGLOBIN AND [id number] 17:32:00* Test Item Value Reference Range Interpretation Comments HEMOGLOBIN (BEAKER) (test code = 410) 7.4 GM/DL 13.7-17.5 L HEMATOCRIT (BEAKER) (test code = 411) 22.4 % 40.1-51.0 L BLOOD GAS, [id number] 17:25:00* Test Item Value Reference Range Interpretation [...] 0.0-5.0 H RAD, CHEST, 1 VIEW, NON [id number] 14:14:00Reason for exam:->line placementShould this be performed [...] [place] Verified Date/Time: 06/21/2018 14:14:23 Reading Location: [facility] C013W Consult Reading Room GLOBIN AND [id number] 14:12:00* Test Item Value Reference Range Interpretation Comments HEMOGLOBIN (BEAKER) (test code = 410) 6.3 GM/DL 13.7-17.5 L HEMATOCRIT (BEAKER) (test code = 411) 19.7 % 40.1-51.0 L PROTHROMBIN TIME/[id number] 14:10:00* Test Item Value Reference Range Interpretation Comments PROTIME (BEAKER) (test code = 759) 18.5 seconds 11.7-14.7 H INR (BEAKER) (test code = 370) 1.5 <=5.9 RECOMMENDED COUMADIN/WARFARIN INR THERAPY RANGESSTANDARD DOSE: 2.0 - 3.0 Inclu herb: PROPHYLAXIS for venous thrombosis, systemic embolization; TREATMENT for giulia ous thrombosis and/or pulmonary embolus.HIGH RISK: Target INR is 2.5-3.5 for pat ients with mechanical heart valves.[id number] 14:10:00* Test Item Value Reference Range Interpretation Comments FIBRINOGEN LEVEL (BEAKER) (test code = 658) 405 mg/dl 225-434 [id number] 14:10:00* Test Item Value Reference Range Interpretation Comments PARTIAL THROMBOPLASTIN TIME (BEAKER) (test code = 760) 43.9 seconds 22.5-36.0 H LACTIC ACID, [id number] 13:57:00* Test Item Value Reference Range Interpretation Comments LACTATE BLOOD ARTERIAL (2) (BEAKER) (test code = 2874) 0.8 mmol/L 0.5-2.2 Specimen markedly ictericPLATELET [id number] 13:47:00* Test Item Value Reference Range Interpretation Comments PLATELET COUNT (BEAKER) (test code = 756) 347 K/CU MM 150-450 CALCIUM, [id number] 13:46:00* Test Item Value Reference Range Interpretation Comments CALCIUM IONIZED (BEAKER) (test code = 698) 1.03 mmol/L 1.12-1.27 L PH, BLOOD (BEAKER) (test code = 1810) 7.40 POTASSIUM-STAT [id number] 13:45:00* Test Item Value Reference Range Interpretation Comments POTASSIUM (BEAKER) (test code = 379) 3.3 meq/L 3.6-5.5 L GLUCOSE-STAT [id number] 13:45:00* Test Item Value Reference Range Interpretation Comments GLUCOSE RANDOM (BEAKER) (test code = 652) 213 mg/dL 70-110 H HGB/HCT (H&H) - STAT [id number] 13:45:00* Test Item Value Reference Range Interpretation Comments HEMOGLOBIN (BEAKER) (test code = 410) 6.4 g/dL 13.0-16.8 L HEMATOCRIT (BEAKER) (test code = 411) 19.0 % 40.0-50.0 L BLOOD GAS, [id number] 13:45:00* Test Item Value Reference Range Interpretation [...] code = 1819) 40.0 % SODIUM NA-STAT [id number] 13:44:00* Test Item Value Reference Range Interpretation Comments SODIUM (BEAKER) (test code = 381) 142 meq/L 135-148 [id number] 12:39:00* Test Item Value Reference Range Interpretation Comments PROCALCITONIN (BEAKER) (test code = 3036) 3.47 ng/mL <0.05 H SEPSIS RISK (ng/mL)Low: 0.05-0.50Intermediate: 0.51-2.00High: > =2.01POCT-GLUCOSE [id number] 12:37:00* Test Item Value Reference Range Interpretation Comments POC-GLUCOSE METER (BEAKER) (test code = 1538) 242 mg/dL 70-110 H TESTED AT [facility] [address] [place] [address] LACTIC ACID, [id number] 12:37:00* Test Item Value Reference Range Interpretation Comments LACTATE BLOOD ARTERIAL (2) (BEAKER) (test code = 2874) 1.0 mmol/L 0.5-2.2 Specimen markedly ictericBLOOD GAS, [id number] 12:23:00* Test Item Value Reference Range Interpretation [...] code = 1819) 40.0 % HEMOGLOBIN AND [id number] 11:40:00* Test Item Value Reference Range Interpretation Comments HEMOGLOBIN (BEAKER) (test code = 410) 7.3 GM/DL 13.7-17.5 L HEMATOCRIT (BEAKER) (test code = 411) 22.6 % 40.1-51.0 L URINALYSIS W/ REFLEX URINE [id number] 11:19:00* Test Item Value Reference Range Interpretation [...] SOURCE(BEAKER) (test code = 2795) OXYGEN SATURATION, [id number] 11:10:00* Test Item Value Reference Range Interpretation Comments O2 SATURATION (MEASURED) (BEAKER) (test code = 1455) 63.5 % POCT-GLUCOSE [id number] 09:37:00* Test Item Value Reference Range Interpretation Comments POC-GLUCOSE METER (BEAKER) (test code = 1538) 258 mg/dL 70-110 H TESTED AT [facility] [address] [facility] [address] CBC W/PLT COUNT & AUTO [id number] 08:40:00* Test Item Value Reference Range Interpretation [...] MDReport Verified Date/Time: 06/21/2018 07:46:59 Reading Location: [facility] Radiology Reading Room TIC FUNCTION [id number] 04:40:00* Test Item Value Reference Range Interpretation [...] U/L 6-55 H Specimen markedly ictericBASIC METABOLIC [id number] 04:40:00* Test Item Value Reference Range Interpretation [...] NOT APPLICABLE FOR DIALYSIS PATIENTS. Specimen markedly [id number] 04:26:00* Test Item Value Reference Range Interpretation Comments MAGNESIUM (BEAKER) (test code = 627) 2.1 mg/dL 1.6-2.6 LACTIC ACID, [id number] 04:17:00* Test Item Value Reference Range Interpretation Comments LACTATE BLOOD ARTERIAL (2) (BEAKER) (test code = 2874) 1.0 mmol/L 0.5-2.2 Specimen markedly [id number] 04:12:00* Test Item Value Reference Range Interpretation Comments PARTIAL THROMBOPLASTIN TIME (BEAKER) (test code = 760) 47.7 seconds 22.5-36.0 H PROTHROMBIN TIME/[id number] 04:11:00* Test Item Value Reference Range Interpretation [...] pat ients with mechanical heart valves.BLOOD GAS, [id number] 03:57:00* Test Item Value Reference Range Interpretation [...] (BEAKER) (test code = 1819) 40.0 % [id number] 01:01:00* Test Item Value Reference Range Interpretation Comments POTASSIUM (BEAKER) (test code = 379) 3.4 meq/L 3.5-5.1 L PRN - repeat glucose levels every 1 hour or as specified by insulin titration or ders until glucose level is less than 450 mg/dLCheck Serum Potassium level 2 roxy rs after oral potassium replacement completed or 30 min after intravenous potass ium replacement.[id number] 01:01:00* Test Item Value Reference Range Interpretation Comments MAGNESIUM (BEAKER) (test code = 627) 2.0 mg/dL 1.6-2.6 PRN - repeat glucose levels every 1 hour or as specified by insulin titration or ders until glucose level is less than 450 mg/dLCheck Serum Potassium level 2 roxy rs after oral potassium replacement completed or 30 min after intravenous potass ium replacement.[id number] 01:01:00* Test Item Value Reference Range Interpretation Comments GLUCOSE RANDOM (BEAKER) (test code = 652) 220 mg/dL 70-105 H PRN - repeat glucose levels every 1 hour or as specified by insulin titration or ders until glucose level is less than 450 mg/dLCheck Serum Potassium level 2 roxy rs after oral potassium replacement completed or 30 min after intravenous potass ium replacement.CALCIUM, [id number] 00:47:00* Test Item Value Reference Range Interpretation Comments CALCIUM IONIZED (BEAKER) (test code = 698) 1.05 mmol/L 1.12-1.27 L PH, BLOOD (BEAKER) (test code = 1810) 7.48 Check serum Ionized Calcium level after 4 hours after IV Calcium replacement. BLOOD GAS, [id number] 21:09:00* Test Item Value Reference Range Interpretation [...] code = 1819) 40.0 % Before ventPOCT-GLUCOSE [id number] 17:55:00* Test Item Value Reference Range Interpretation Comments POC-GLUCOSE METER (BEAKER) (test code = 1538) 254 mg/dL 70-110 H TESTED AT [facility] [address] [facility] [address] BASIC METABOLIC [id number] 17:37:00* Test Item Value Reference Range Interpretation [...] FOR DIALYSIS PATIENTS. Specimen markedly ictericHEMOGLOBIN AND [id number] 17:18:00* Test Item Value Reference Range Interpretation Comments HEMOGLOBIN (BEAKER) (test code = 410) 8.2 GM/DL 13.7-17.5 L HEMATOCRIT (BEAKER) (test code = 411) 24.9 % 40.1-51.0 L CALCIUM, [id number] 17:14:00* Test Item Value Reference Range Interpretation Comments CALCIUM IONIZED (BEAKER) (test code = 698) 1.04 mmol/L 1.12-1.27 L PH, BLOOD (BEAKER) (test code = 1810) 7.49 Check serum Ionized Calcium level after 4 hours after IV Calcium replacement. POCT-GLUCOSE [id number] 17:00:00* Test Item Value Reference Range Interpretation Comments POC-GLUCOSE METER (BEAKER) (test code = 1538) 238 mg/dL 70-110 H TESTED AT [facility] [address] [facility] [address] POCT-GLUCOSE [id number] 11:59:00* Test Item Value Reference Range Interpretation Comments POC-GLUCOSE METER (BEAKER) (test code = 1538) 199 mg/dL 70-110 H TESTED AT [facility] [address] [facility] [address] BASIC METABOLIC [id number] 10:07:00* Test Item Value Reference Range Interpretation [...] FOR DIALYSIS PATIENTS. Specimen markedly ictericHEMOGLOBIN AND [id number] 09:56:00* Test Item Value Reference Range Interpretation Comments HEMOGLOBIN (BEAKER) (test code = 410) 8.2 GM/DL 13.7-17.5 L HEMATOCRIT (BEAKER) (test code = 411) 24.9 % 40.1-51.0 L SPUTUM CULTURE + GRAM [id number] 09:21:00* Test Item Value Reference Range Interpretation Comments CULTURE (BEAKER) (test code = 1095) <1+ Normal respiratory chase pr esent GRAM STAIN RESULT (BEAKER) (test code = 1123) <1+ WBCs GRAM STAIN RESULT (BEAKER) (test code = 04731) 0-5 epithelial cells GRAM STAIN RESULT (BEAKER) (test code = 17483) No organisms seen CBC W/PLT COUNT & AUTO [id number] 08:52:00* Test Item Value Reference Range Interpretation [...] quate Received comment: User comments: Slide comments: [id number] 08:27:00* Test Item Value Reference Range Interpretation Comments T3 TOTAL (BEAKER) (test code = 656) 55 ng/dL 48-159 CALCIUM, [id number] 05:17:00* Test Item Value Reference Range Interpretation Comments CALCIUM IONIZED (BEAKER) (test code = 698) 1.01 mmol/L 1.12-1.27 L PH, BLOOD (BEAKER) (test code = 1810) 7.43 HEPATIC FUNCTION [id number] 05:05:00* Test Item Value Reference Range Interpretation [...] U/L 6-55 H Specimen markedly ictericBASIC METABOLIC [id number] 05:05:00* Test Item Value Reference Range Interpretation [...] NOT APPLICABLE FOR DIALYSIS PATIENTS. Specimen markedly [id number] 05:04:00* Test Item Value Reference Range Interpretation Comments MAGNESIUM (BEAKER) (test code = 627) 2.2 mg/dL 1.6-2.6 RAD, CHEST, 1 VIEW, NON [id number] 04:59:00Reason for exam:->Pulmonary edema evaluationShould this be [...] MDReport Verified Date/Time: 06/20/2018 04:59:55 Reading Location: [address] Neuro Reading Room [id number] 04:44:00* Test Item Value Reference Range Interpretation Comments PARTIAL THROMBOPLASTIN TIME (BEAKER) (test code = 760) 45.0 seconds 22.5-36.0 H PROTHROMBIN [id number] 04:43:00* Test Item Value Reference Range Interpretation [...] pat ients with mechanical heart valves.LACTIC ACID, [id number] 04:41:00* Test Item Value Reference Range Interpretation Comments LACTATE BLOOD ARTERIAL (2) (BEAKER) (test code = 2874) 0.6 mmol/L 0.5-2.2 Specimen markedly ictericBLOOD GAS, [id number] 04:29:00* Test Item Value Reference Range Interpretation [...] code = 1819) 40.0 % BASIC METABOLIC [id number] 01:12:00* Test Item Value Reference Range Interpretation [...] FOR DIALYSIS PATIENTS. Specimen markedly ictericHEMOGLOBIN AND [id number] 00:24:00* Test Item Value Reference Range Interpretation Comments HEMOGLOBIN (BEAKER) (test code = 410) 8.3 GM/DL 13.7-17.5 L HEMATOCRIT (BEAKER) (test code = 411) 25.0 % 40.1-51.0 L POCT-GLUCOSE [id number] 00:18:00* Test Item Value Reference Range Interpretation Comments POC-GLUCOSE METER (BEAKER) (test code = 1538) 233 mg/dL 70-110 H TESTED AT [facility] [address] [facility] [address] HEMOGLOBIN AND [id number] 20:18:00* Test Item Value Reference Range Interpretation Comments HEMOGLOBIN (BEAKER) (test code = 410) 8.4 GM/DL 13.7-17.5 L HEMATOCRIT (BEAKER) (test code = 411) 25.0 % 40.1-51.0 L BASIC METABOLIC [id number] 19:06:00* Test Item Value Reference Range Interpretation [...] FOR DIALYSIS PATIENTS. Specimen markedly ictericBASIC METABOLIC [id number] 19:06:00* Test Item Value Reference Range Interpretation [...] FOR DIALYSIS PATIENTS. Specimen markedly ictericHEMOGLOBIN AND [id number] 18:48:00* Test Item Value Reference Range Interpretation Comments HEMOGLOBIN (BEAKER) (test code = 410) 8.3 GM/DL 13.7-17.5 L HEMATOCRIT (BEAKER) (test code = 411) 25.7 % 40.1-51.0 L POCT-GLUCOSE [id number] 17:33:00* Test Item Value Reference Range Interpretation Comments POC-GLUCOSE METER (BEAKER) (test code = 1538) 193 mg/dL 70-110 H TESTED AT [facility] [address] [facility] [address] CYTOMEGALOVIRUS ANTIBODY, [id number] 14:16:00* Test Item Value Reference Range Interpretation Comments CYTOMEGALOVIRUS, IGG (BEAKER) (test code = 3429) Negative Negat mumtaz, Equivocal CMV IgG Result Interpretation: </= 0.8 Al Negative 0.9-1.0 Al Equivocal > /=1.1 Al PositiveCYTOMEGALOVIRUS ANTIBODY, [id number] 14:16:00* Test Item Value Reference Range Interpretation Comments CYTOMEGALOVIRUS IGM ANTIBODY (BEAKER) (test code = 3437) Neg ative Negative, Equivocal CMV IgM Result Interpretation: </= 0.8 Al Negative 0.9-1.0 Al Equivocal > /= 1.1 Al PositiveEBV ANTIBODY, [id number] 14:16:00* Test Item Value Reference Range Interpretation Comments ALEX MAE VIRAL CAPSID ANTIGEN IGG (BEAKER) (test code = 3415) Positive Negative, Equivocal A Alex Mae Viral Capsid Antigen IgG Result Interpretation: </= 0.8 Al Negative 0.9-1.0 Al Equivocal >/= 1.1 Al PositiveEBV ANTIBODY, [id number] 14:16:00* Test Item Value Reference Range Interpretation [...] = 411) 26.4 % 40.1-51.0 L POCT-GLUCOSE [id number] 12:45:00* Test Item Value Reference Range Interpretation Comments POC-GLUCOSE METER (BEAKER) (test code = 1538) 204 mg/dL 70-110 H TESTED AT [facility] [address] [place] [address] CBC W/PLT COUNT & AUTO [id number] 11:32:00* Test Item Value Reference Range Interpretation [...] manually reviewed rbc morp hology on the [id number] 11:25:00* Test Item Value Reference Range Interpretation Comments RPR SCREEN (BEAKER) (test code = 420) Nonreactive Nonreactive [id number] 11:23:00* Test Item Value Reference Range Interpretation Comments AMMONIA (BEAKER) (test code = 348) 62 mol/L 18-72 HEMOGLOBIN AND [id number] 10:37:00* Test Item Value Reference Range Interpretation Comments HEMOGLOBIN (BEAKER) (test code = 410) 7.9 GM/DL 13.7-17.5 L HEMATOCRIT (BEAKER) (test code = 411) 24.4 % 40.1-51.0 L BASIC METABOLIC [id number] 09:29:00* Test Item Value Reference Range Interpretation [...] APPLICABLE FOR DIALYSIS PATIENTS. Specimen markedly ictericPOCT-GLUCOSE [id number] 08:36:00* Test Item Value Reference Range Interpretation Comments POC-GLUCOSE METER (BEAKER) (test code = 1538) 211 mg/dL 70-110 H TESTED AT [place] [id number] [facility] [address] RAD, CHEST, 1 VIEW, NON [id number] 07:24:00Reason for exam:->Pulmonary edema evaluationShould this be [...] [place] Verified Date/Time: 06/19/2018 07:24:06 Reading Location: [address] Neuro Reading Room Electronically signed by: OMERO MOURA M.D. on 07:24 AM [id number] 05:40:00* Test Item Value Reference Range Interpretation Comments PARTIAL THROMBOPLASTIN TIME (BEAKER) (test code = 760) 44.4 seconds 22.5-36.0 H PROTHROMBIN [id number] 05:39:00* Test Item Value Reference Range Interpretation [...] pat ients with mechanical heart valves.HEPATIC FUNCTION [id number] 05:17:00* Test Item Value Reference Range Interpretation [...] U/L 6-55 H Specimen markedly ictericBASIC METABOLIC [id number] 05:17:00* Test Item Value Reference Range Interpretation [...] NOT APPLICABLE FOR DIALYSIS PATIENTS. Specimen markedly [id number] 05:13:00* Test Item Value Reference Range Interpretation Comments PHOSPHORUS (BEAKER) (test code = 604) 5.3 mg/dL 2.3-4.7 H [id number] 05:13:00* Test Item Value Reference Range Interpretation Comments MAGNESIUM (BEAKER) (test code = 627) 2.2 mg/dL 1.6-2.6 LACTIC ACID, [id number] 04:57:00* Test Item Value Reference Range Interpretation Comments LACTATE BLOOD ARTERIAL (2) (BEAKER) (test code = 2874) 0.7 mmol/L 0.5-2.2 Specimen markedly ictericCALCIUM, [id number] 04:46:00* Test Item Value Reference Range Interpretation Comments CALCIUM IONIZED (BEAKER) (test code = 698) 1.07 mmol/L 1.12-1.27 L PH, BLOOD (BEAKER) (test code = 1810) 7.47 BLOOD GAS, [id number] 04:46:00* Test Item Value Reference Range Interpretation [...] code = 1819) 40.0 % OCCULT BLOOD, [id number] 01:25:00* Test Item Value Reference Range Interpretation Comments FECAL OCCULT BLOOD (BEAKER) (test code = 618) Positive Negative A BASIC METABOLIC [id number] 23:56:00* Test Item Value Reference Range Interpretation [...] APPLICABLE FOR DIALYSIS PATIENTS. Specimen markedly ictericCALCIUM, [id number] 23:54:00* Test Item Value Reference Range Interpretation Comments CALCIUM IONIZED (BEAKER) (test code = 698) 1.11 mmol/L 1.12-1.27 L PH, BLOOD (BEAKER) (test code = 1810) 7.46 Check serum Ionized Calcium level after 4 hours after IV Calcium replacement. HEMOGLOBIN AND [id number] 23:37:00* Test Item Value Reference Range Interpretation Comments HEMOGLOBIN (BEAKER) (test code = 410) 7.0 GM/DL 13.7-17.5 L HEMATOCRIT (BEAKER) (test code = 411) 22.2 % 40.1-51.0 L POCT-GLUCOSE [id number] 23:36:00* Test Item Value Reference Range Interpretation Comments POC-GLUCOSE METER (BEAKER) (test code = 1538) 161 mg/dL 70-110 H TESTED AT [facility] [address] [facility] [address] HEMOGLOBIN AND [id number] 20:42:00* Test Item Value Reference Range Interpretation Comments HEMOGLOBIN (BEAKER) (test code = 410) 7.2 GM/DL 13.7-17.5 L HEMATOCRIT (BEAKER) (test code = 411) 22.3 % 40.1-51.0 L CBC W/PLT COUNT & AUTO [id number] 18:06:00* Test Item Value Reference Range Interpretation [...] Received comment: User comments: Slide comments: POCT-GLUCOSE [id number] 17:33:00* Test Item Value Reference Range Interpretation Comments POC-GLUCOSE METER (BEAKER) (test code = 1538) 196 mg/dL 70-110 H TESTED AT [facility] [address] [facility] [address] BASIC METABOLIC [id number] 17:24:00* Test Item Value Reference Range Interpretation [...] NOT APPLICABLE FOR DIALYSIS PATIENTS. Specimen markedly [id number] 14:47:00* Test Item Value Reference Range Interpretation Comments T4 TOTAL (BEAKER) (test code = 895) 8.1 ug/dL 4.9-11.7 CRYPTOCOCCAL [id number] 14:31:00* Test Item Value Reference Range Interpretation Comments CRYPTOCOCCAL ANTIGEN, SERUM (BEAKER) (test code = 1828) Nega tive Negative, Interference [id number] 14:20:00* Test Item Value Reference Range Interpretation Comments FERRITIN (BEAKER) (test code = 361) 2332 ng/mL 5-275 H LIPID [id number] 14:07:00* Test Item Value Reference Range Interpretation [...] High 160-189 Very High >=190 Specimen markedly [id number] 13:01:00* Test Item Value Reference Range Interpretation Comments PROSTATE SPECIFIC ANTIGEN (BEAKER) (test code = 844) 0.5 ng/mL 0 .0-4.0 HIV-1 ANTIGEN WITH HIV-1/2 [id number] 13:01:00* Test Item Value Reference Range Interpretation Comments HIV-1 ANTIGEN WITH HIV 1\\T\\2 ANTIBODY (2) (BEAKER) (te st code = 2586) Nonreactive Nonreactive CARCINOEMBRYONIC ANTIGEN (CEA)2018-06-18 13:01:00* Test Item Value Reference Range Interpretation Comments CARCINOEMBRYONIC ANTIGEN (BEAKER) (test code = 685) 16.6 ng/mL 0. 0-5.0 H VITAMIN D, 01-[id number] 13:01:00* Test Item Value Reference Range Interpretation Comments VITAMIN D 25-OH (BEAKER) (test code = 2764) 14.7 ng/mL 6.6-49.9 Effective 12/06/2016: Reference Range ChangeNew: 6.6-49.9 ng/mL Previous: 13.0 -47.8 ng/mLRecommended Vitamin D Target Range: 30.0-40.0 ng/mLPOCT-GLUCOSE METER 2018-06-18 12:53:00* Test Item Value Reference Range Interpretation Comments POC-GLUCOSE METER (BEAKER) (test code = 1538) 239 mg/dL 70-110 H TESTED AT [address] [address] [id number] 12:43:00* Test Item Value Reference Range Interpretation Comments TRANSFERRIN (BEAKER) (test code = 541) 112 mg/dL 174-382 L Specimen markedly ictericURIC [id number] 12:42:00* Test Item Value Reference Range Interpretation Comments URIC ACID (BEAKER) (test code = 773) 15.6 mg/dL 2.6-7.2 H Specimen markedly ictericGAMMA GLUTAMYL TRANSFERASE (GGT)2018-06-18 12:42:00* Test Item Value Reference Range Interpretation Comments GAMMA GLUTAMYL TRANSFERASE (BEAKER) (test code = 364) 125 U/L 9-64 H Specimen markedly [id number] 12:40:00* Test Item Value Reference Range Interpretation Comments ETHANOL (BEAKER) (test code = 400) < mg/dL <=10 [id number] 12:35:00* Test Item Value Reference Range Interpretation Comments FIBRINOGEN LEVEL (BEAKER) (test code = 658) 811 mg/dl 225-434 H BLOOD [id number] 11:56:00* Test Item Value Reference Range Interpretation Comments CULTURE (BEAKER) (test code = 1095) No growth in 5 days BLOOD [id number] 11:56:00* Test Item Value Reference Range Interpretation Comments CULTURE (BEAKER) (test code = 1095) No growth in 5 days CALCIUM, [id number] 11:40:00* Test Item Value Reference Range Interpretation Comments CALCIUM IONIZED (BEAKER) (test code = 698) 1.12 mmol/L 1.12-1.27 PH, BLOOD (BEAKER) (test code = 1810) 7.49 CBC W/PLT COUNT & AUTO [id number] 08:56:00* Test Item Value Reference Range Interpretation [...] WBC: SEGMENTED WITH TOXIG GRANU LATION PRESENT [id number] 08:54:00* Test Item Value Reference Range Interpretation Comments MAGNESIUM (BEAKER) (test code = 627) 2.3 mg/dL 1.6-2.6 BASIC METABOLIC [id number] 08:54:00* Test Item Value Reference Range Interpretation [...] APPLICABLE FOR DIALYSIS PATIENTS. Specimen markedly ictericPOCT-GLUCOSE [id number] 08:29:00* Test Item Value Reference Range Interpretation Comments POC-GLUCOSE METER (BEAKER) (test code = 1538) 223 mg/dL 70-110 H TESTED AT [facility] [address] [facility] [address] RAD, CHEST, 1 VIEW, NON [id number] 04:54:00Reason for exam:->Pulmonary edema evaluationShould this be [...] Verified D ate/Time: 06/18/2018 04:54:27 Reading Location: [facility] B1 C013Y CT Body Reading Ro om D GAS, [id number] 04:39:00* Test Item Value Reference Range Interpretation [...] code = 1819) 40.0 % HEPATIC FUNCTION [id number] 04:35:00* Test Item Value Reference Range Interpretation [...] 347) 138 U/L 6-55 H Specimen markedly [id number] 04:34:00* Test Item Value Reference Range Interpretation Comments MAGNESIUM (BEAKER) (test code = 627) 2.5 mg/dL 1.6-2.6 BASIC METABOLIC [id number] 04:34:00* Test Item Value Reference Range Interpretation [...] code = 380) 50 U/L 29-20 0 [id number] 04:23:00* Test Item Value Reference Range Interpretation Comments PARTIAL THROMBOPLASTIN TIME (BEAKER) (test code = 760) 49.4 seconds 22.5-36.0 H PROTHROMBIN TIME/[id number] 04:22:00* Test Item Value Reference Range Interpretation [...] pat ients with mechanical heart valves.LACTIC ACID, [id number] 04:17:00* Test Item Value Reference Range Interpretation Comments LACTATE BLOOD ARTERIAL (2) (BEAKER) (test code = 2874) 1.3 mmol/L 0.5-2.2 Specimen markedly [id number] 00:59:00* Test Item Value Reference Range Interpretation Comments MAGNESIUM (BEAKER) (test code = 627) 2.1 mg/dL 1.6-2.6 BASIC METABOLIC [id number] 00:59:00* Test Item Value Reference Range Interpretation [...] APPLICABLE FOR DIALYSIS PATIENTS. Specimen markedly ictericPOCT-GLUCOSE [id number] 00:20:00* Test Item Value Reference Range Interpretation Comments POC-GLUCOSE METER (BEAKER) (test code = 1538) 155 mg/dL 70-110 H TESTED AT [facility] [address] [facility] [address] POCT-GLUCOSE [id number] 18:09:00* Test Item Value Reference Range Interpretation Comments POC-GLUCOSE METER (BEAKER) (test code = 1538) 187 mg/dL 70-110 H TESTED AT [facility] [address] [facility] [address] BASIC METABOLIC [id number] 16:09:00* Test Item Value Reference Range Interpretation [...] APPLICABLE FOR DIALYSIS PATIENTS. Specimen markedly ictericPOCT-GLUCOSE [id number] 12:03:00* Test Item Value Reference Range Interpretation Comments POC-GLUCOSE METER (BEAKER) (test code = 1538) 212 mg/dL 70-110 H TESTED AT [facility] [address] [facility] [address] [id number] 11:52:00* Test Item Value Reference Range Interpretation Comments MAGNESIUM (BEAKER) (test code = 627) 2.0 mg/dL 1.6-2.6 BASIC METABOLIC [id number] 11:52:00* Test Item Value Reference Range Interpretation [...] Specimen markedly ictericPERIPHERAL BLOOD SMEAR - PATHOLOGIST [id number] 08:37:00* Test Item Value Reference Range Interpretation Comments PERIPHERAL SMR REVIEW (BEAKER) (test code = 2640) Left shifted granulocytes with toxic changes. No circulating blasts. No significantly increased schistocytes. [id number] (BEAKER) (test code = 2849) Raul Arenas M.D.(electronic signature) RAD, CHEST, 1 VIEW, NON [id number] 08:15:00Reason for exam:->Pulmonary edema evaluationShould this be performed at the bedside?->YesFINAL REPORT Chest, one view. HISTORY: Pulmonary edema evaluation COMPARISON: Radiograph from 06/16/2018 IMPRESSION: Unchanged positioning of support lines and tubes. The interstitial edema is unchanged. No pleural effusion or pneumothorax. The cardiac silhouette is unchanged. No acute bony abnormality. Signed: Kyle Rae MDReport Verified Date/Time: 06/17/2018 08:15:08 Reading Location: [facility] Radiology Reading Room LT BLOOD, [id number] 07:04:00* Test Item Value Reference Range Interpretation Comments FECAL OCCULT BLOOD (BEAKER) (test code = 618) Negative Negative POCT-GLUCOSE [id number] 06:28:00* Test Item Value Reference Range Interpretation Comments POC-GLUCOSE METER (BEAKER) (test code = 1538) 209 mg/dL 70-110 H TESTED AT [facility] [address] [facility] [address] [id number] 05:05:00* Test Item Value Reference Range Interpretation Comments PARTIAL THROMBOPLASTIN TIME (BEAKER) (test code = 760) 51.6 seconds 22.5-36.0 H PROTHROMBIN [id number] 05:04:00* Test Item Value Reference Range Interpretation [...] pat ients with mechanical heart valves.HEPATIC FUNCTION [id number] 04:18:00* Test Item Value Reference Range Interpretation [...] 347) 146 U/L 6-55 H Specimen markedly [id number] 03:59:00* Test Item Value Reference Range Interpretation Comments MAGNESIUM (BEAKER) (test code = 627) 2.4 mg/dL 1.6-2.6 BASIC METABOLIC [id number] 03:59:00* Test Item Value Reference Range Interpretation [...] NOT APPLICABLE FOR DIALYSIS PATIENTS. Specimen markedly [id number] 03:59:00* Test Item Value Reference Range Interpretation Comments AMYLASE (BEAKER) (test code = 349) 49 U/L 25-125 Specimen markedly [id number] 03:59:00* Test Item Value Reference Range Interpretation Comments LIPASE (BEAKER) (test code = 749) 186 U/L 8-78 H Specimen markedly ictericLACTIC ACID, [id number] 03:41:00* Test Item Value Reference Range Interpretation Comments LACTATE BLOOD ARTERIAL (2) (BEAKER) (test code = 2874) 1.5 mmol/L 0.5-2.2 Specimen markedly ictericCBC W/PLT COUNT & AUTO [id number] 03:38:00 * Test Item Value Reference Range [...] 2801) 3 % 0-1 H BLOOD GAS, [id number] 03:30:00* Test Item Value Reference Range Interpretation [...] (test code = 1819) 40.0 % CALCIUM, [id number] 03:28:00* Test Item Value Reference Range Interpretation Comments CALCIUM IONIZED (BEAKER) (test code = 698) 1.14 mmol/L 1.12-1.27 PH, BLOOD (BEAKER) (test code = 1810) 7.53 Check serum Ionized Calcium level after 4 hours after IV Calcium replacement. POCT-GLUCOSE [id number] 00:11:00* Test Item Value Reference Range Interpretation Comments POC-GLUCOSE METER (BEAKER) (test code = 1538) 233 mg/dL 70-110 H TESTED AT [facility] [address] [facility] [address] HEMOGLOBIN AND [id number] 23:41:00* Test Item Value Reference Range Interpretation Comments HEMOGLOBIN (BEAKER) (test code = 410) 8.3 GM/DL 13.7-17.5 L HEMATOCRIT (BEAKER) (test code = 411) 26.1 % 40.1-51.0 L [id number] 20:50:00* Test Item Value Reference Range Interpretation Comments MAGNESIUM (BEAKER) (test code = 627) 2.5 mg/dL 1.6-2.6 BASIC METABOLIC [id number] 20:50:00* Test Item Value Reference Range Interpretation [...] APPLICABLE FOR DIALYSIS PATIENTS. Specimen markedly ictericCALCIUM, [id number] 20:26:00* Test Item Value Reference Range Interpretation Comments CALCIUM IONIZED (BEAKER) (test code = 698) 1.11 mmol/L 1.12-1.27 L PH, BLOOD (BEAKER) (test code = 1810) 7.53 Check serum Ionized Calcium level after 4 hours after IV Calcium replacement. POCT-GLUCOSE [id number] 20:07:00* Test Item Value Reference Range Interpretation Comments POC-GLUCOSE METER (BEAKER) (test code = 1538) 203 mg/dL 70-110 H TESTED AT [facility] [address] [facility] [address] POCT-GLUCOSE [id number] 16:57:00* Test Item Value Reference Range Interpretation Comments POC-GLUCOSE METER (BEAKER) (test code = 1538) 130 mg/dL 70-110 H TESTED AT [address] [address] VITAMIN B12 AND [id number] 16:12:00* Test Item Value Reference Range Interpretation Comments VITAMIN B12 (BEAKER) (test code = 774) 1499 pg/mL 213-816 H FOLATE (BEAKER) (test code = 362) 14.9 ng/mL >=7.0 POCT-GLUCOSE [id number] 15:35:00* Test Item Value Reference Range Interpretation Comments POC-GLUCOSE METER (BEAKER) (test code = 1538) 101 mg/dL 70-110 TESTED AT [place] [id number] [facility] [address] (MANUAL DIFFERENTIAL)2018-06-16 14:42:00* Test Item Value Reference [...] RBCS(BEAKER) (test code = 478) 1+ few [id number] 14:16:00* Test Item Value Reference Range Interpretation Comments HAPTOGLOBIN (BEAKER) (test code = 366) 250 mg/dL 14-258 [id number] 14:09:00* Test Item Value Reference Range Interpretation Comments MAGNESIUM (BEAKER) (test code = 627) 2.1 mg/dL 1.6-2.6 BASIC METABOLIC [id number] 14:09:00* Test Item Value Reference Range Interpretation [...] NOT APPLICABLE FOR DIALYSIS PATIENTS. Specimen markedly [id number] 14:09:00* Test Item Value Reference Range Interpretation Comments AMYLASE (BEAKER) (test code = 349) 55 U/L 25-125 Specimen markedly ictericLACTATE DEHYDROGENASE (LDH)2018-06-16 14:09:00* Test Item Value Reference Range Interpretation Comments LACTATE DEHYDROGENASE (BEAKER) (test code = 635) 388 U/L 125-2 20 H [id number] 14:09:00* Test Item Value Reference Range Interpretation [...] = 2590) 30 % 20-5 5 IRON, [id number] 14:04:00* Test Item Value Reference Range Interpretation Comments IRON (BEAKER) (test code = 547) 37.0 ug/dL 40.0-160.0 L LACTIC ACID, [id number] 14:02:00* Test Item Value Reference Range Interpretation [...] 0 /100 WBC 0 -0 BLOOD GAS, [id number] 13:45:00* Test Item Value Reference Range Interpretation [...] (test code = 1819) 100.0 % POCT-GLUCOSE [id number] 13:23:00* Test Item Value Reference Range Interpretation Comments POC-GLUCOSE METER (BEAKER) (test code = 1538) 121 mg/dL 70-110 H TESTED AT [facility] [address] [facility] [address] POCT-GLUCOSE [id number] 11:05:00* Test Item Value Reference Range Interpretation Comments POC-GLUCOSE METER (BEAKER) (test code = 1538) 145 mg/dL 70-110 H TESTED AT [facility] [address] [facility] [address] POCT-GLUCOSE [id number] 08:56:00* Test Item Value Reference Range Interpretation Comments POC-GLUCOSE METER (BEAKER) (test code = 1538) 147 mg/dL 70-110 H TESTED AT [facility] [address] [facility] [address] CBC W/PLT COUNT & AUTO [id number] 08:10:00* Test Item Value Reference Range Interpretation [...] 1+ few RAD, CHEST, 1 VIEW, NON [id number] 07:59:00Reason for exam:->Pulmonary edema evaluationShould this be performed at the bedside?->YesFINAL REPORT INDICATION: Pulmonary edema evaluation COMPARISON:June 15. TECHNIQUE: Chest radiograph, single view, portable technique. FINDINGS / IMPRESSION: Prominent heart shadow and diffuse interstitial pulmonary edema are again demonstrated. Support lines and tubes unchanged and appear satisfactory. No pneumothorax. Signed: Natalio Santillan MDReport Verified Date/Time: 06/16/2018 07:59:49 Reading Location: [address] Consult Reading Room [facility] signed by: NATALIO SANTILLAN M.D. on 06/16/2018 07:59 AM POCT- GLUCOSE [id number] 07:05:00* Test Item Value Reference Range Interpretation Comments POC-GLUCOSE METER (BEAKER) (test code = 1538) 114 mg/dL 70-110 H TESTED AT [facility] [address] [facility] [address] POCT-GLUCOSE [id number] 05:09:00* Test Item Value Reference Range Interpretation Comments POC-GLUCOSE METER (BEAKER) (test code = 1538) 120 mg/dL 70-110 H TESTED AT [facility] [address] [facility] [address] HEPATIC FUNCTION [id number] 04:53:00* Test Item Value Reference Range Interpretation [...] 347) 138 U/L 6-55 H Specimen markedly [id number] 04:30:00* Test Item Value Reference Range Interpretation Comments MAGNESIUM (BEAKER) (test code = 627) 2.3 mg/dL 1.6-2.6 BASIC METABOLIC [id number] 04:30:00* Test Item Value Reference Range Interpretation [...] NOT APPLICABLE FOR DIALYSIS PATIENTS. Specimen markedly [id number] 04:14:00* Test Item Value Reference Range Interpretation Comments PARTIAL THROMBOPLASTIN TIME (BEAKER) (test code = 760) 48.2 seconds 22.5-36.0 H PROTHROMBIN [id number] 04:13:00* Test Item Value Reference Range Interpretation [...] pat ients with mechanical heart valves.LACTIC ACID, [id number] 04:08:00* Test Item Value Reference Range Interpretation Comments LACTATE BLOOD ARTERIAL (2) (BEAKER) (test code = 2874) 0.9 mmol/L 0.5-2.2 Specimen markedly ictericBLOOD GAS, [id number] 03:51:00* Test Item Value Reference Range Interpretation [...] (test code = 1819) 40.0 % CALCIUM, [id number] 03:49:00* Test Item Value Reference Range Interpretation Comments CALCIUM IONIZED (BEAKER) (test code = 698) 1.13 mmol/L 1.12-1.27 PH, BLOOD (BEAKER) (test code = 1810) 7.52 Check serum Ionized Calcium level after 4 hours after IV Calcium replacement. POCT-GLUCOSE [id number] 02:50:00* Test Item Value Reference Range Interpretation Comments POC-GLUCOSE METER (BEAKER) (test code = 1538) 132 mg/dL 70-110 H TESTED AT [address] [address] POCT-GLUCOSE [id number] 01:18:00* Test Item Value Reference Range Interpretation Comments POC-GLUCOSE METER (BEAKER) (test code = 1538) 137 mg/dL 70-110 H TESTED AT [address] [address] POCT-GLUCOSE [id number] 00:07:00* Test Item Value Reference Range Interpretation Comments POC-GLUCOSE METER (BEAKER) (test code = 1538) 131 mg/dL 70-110 H TESTED AT [address] [address] BLOOD GAS, [id number] 22:54:00* Test Item Value Reference Range Interpretation [...] (test code = 1819) 40.0 % POCT-GLUCOSE [id number] 22:51:00* Test Item Value Reference Range Interpretation Comments POC-GLUCOSE METER (BEAKER) (test code = 1538) 167 mg/dL 70-110 H TESTED AT [address] [address] [id number] 22:08:00* Test Item Value Reference Range Interpretation Comments POTASSIUM (BEAKER) (test code = 379) 3.9 meq/L 3.5-5.1 PRN - repeat potassium levels every 1 hour until glucose level is less than 450 mg/[id number] 22:08:00* Test Item Value Reference Range Interpretation Comments MAGNESIUM (BEAKER) (test code = 627) 2.3 mg/dL 1.6-2.6 PRN - repeat potassium levels every 1 hour until glucose level is less than 450 mg/dLPOCT-GLUCOSE [id number] 22:00:00* Test Item Value Reference Range Interpretation Comments POC-GLUCOSE METER (BEAKER) (test code = 1538) 126 mg/dL 70-110 H TESTED AT [address] [address] HEMOGLOBIN AND [id number] 21:56:00* Test Item Value Reference Range Interpretation Comments HEMOGLOBIN (BEAKER) (test code = 410) 8.4 GM/DL 13.7-17.5 L HEMATOCRIT (BEAKER) (test code = 411) 26.0 % 40.1-51.0 L CALCIUM, [id number] 21:53:00* Test Item Value Reference Range Interpretation Comments CALCIUM IONIZED (BEAKER) (test code = 698) 1.10 mmol/L 1.12-1.27 L PH, BLOOD (BEAKER) (test code = 1810) 7.50 Check serum Ionized Calcium level after 4 hours after IV Calcium replacement. POCT-GLUCOSE [id number] 20:41:00* Test Item Value Reference Range Interpretation Comments POC-GLUCOSE METER (BEAKER) (test code = 1538) 90 mg/dL 70-110 TESTED AT [address] [address] BLOOD GAS, [id number] 18:42:00* Test Item Value Reference Range Interpretation [...] (test code = 1819) 50.0 % POCT-GLUCOSE [id number] 17:49:00* Test Item Value Reference Range Interpretation Comments POC-GLUCOSE METER (BEAKER) (test code = 1538) 125 mg/dL 70-110 H TESTED AT [facility] [address] [facility] [address] BASIC METABOLIC [id number] 17:46:00* Test Item Value Reference Range Interpretation [...] FOR DIALYSIS PATIENTS. Specimen markedly ictericBLOOD GAS, [id number] 17:35:00* Test Item Value Reference Range Interpretation [...] (test code = 1819) 50.0 % POCT-GLUCOSE [id number] 15:27:00* Test Item Value Reference Range Interpretation Comments POC-GLUCOSE METER (BEAKER) (test code = 1538) 138 mg/dL 70-110 H TESTED AT [facility] [address] [facility] [address] [id number] 13:59:00* Test Item Value Reference Range Interpretation Comments MAGNESIUM (BEAKER) (test code = 627) 2.1 mg/dL 1.6-2.6 BASIC METABOLIC [id number] 13:59:00* Test Item Value Reference Range Interpretation [...] FOR DIALYSIS PATIENTS. Specimen markedly ictericBLOOD GAS, [id number] 13:40:00* Test Item Value Reference Range Interpretation [...] code = 1819) 50.0 % HEMOGLOBIN AND [id number] 13:40:00* Test Item Value Reference Range Interpretation Comments HEMOGLOBIN (BEAKER) (test code = 410) 7.4 GM/DL 13.7-17.5 L HEMATOCRIT (BEAKER) (test code = 411) 23.5 % 40.1-51.0 L Please collect after PRBCs doneRAD, CHEST, 1 VIEW, NON [id number] 11:32:00 Reason for exam:->Pulmonary edema evaluationShould this [...] MDReport Verified Date/Time: 06/15/2018 11:32:52 Reading Location: [address] Consult Reading Room -GLUCOSE [id number] 10:50:00* Test Item Value Reference Range Interpretation Comments POC-GLUCOSE METER (BEAKER) (test code = 1538) 107 mg/dL 70-110 TESTED AT [address] [address] CBC W/PLT COUNT & AUTO [id number] 09:04:00* Test Item Value Reference Range Interpretation [...] quate Received comment: User comments: Slide comments: [id number] 08:43:00* Test Item Value Reference Range Interpretation Comments POTASSIUM (BEAKER) (test code = 379) 3.9 meq/L 3.5-5.1 PRN - repeat glucose levels every 1 hour or as specified by insulin titration or ders until glucose level is less than 450 mg/dLCheck Serum Potassium level 2 roxy rs after oral potassium replacement completed or 30 min after intravenous potass ium replacement.[id number] 08:43:00* Test Item Value Reference Range Interpretation Comments GLUCOSE RANDOM (BEAKER) (test code = 652) 123 mg/dL 70-105 H PRN - repeat glucose levels every 1 hour or as specified by insulin titration or ders until glucose level is less than 450 mg/dLCheck Serum Potassium level 2 roxy rs after oral potassium replacement completed or 30 min after intravenous potass ium replacement.HEMOGLOBIN AND [id number] 07:05:00* Test Item Value Reference Range Interpretation Comments HEMOGLOBIN (BEAKER) (test code = 410) 6.6 GM/DL 13.7-17.5 L HEMATOCRIT (BEAKER) (test code = 411) 21.3 % 40.1-51.0 L POCT-GLUCOSE [id number] 06:52:00* Test Item Value Reference Range Interpretation Comments POC-GLUCOSE METER (BEAKER) (test code = 1538) 117 mg/dL 70-110 H TESTED AT [facility] [address] [facility] [address] CALCIUM, [id number] 04:47:00* Test Item Value Reference Range Interpretation Comments CALCIUM IONIZED (BEAKER) (test code = 698) 1.10 mmol/L 1.12-1.27 L PH, BLOOD (BEAKER) (test code = 1810) 7.48 Check serum Ionized Calcium level after 4 hours after IV Calcium replacement. BLOOD GAS, [id number] 04:47:00* Test Item Value Reference Range Interpretation [...] code = 1819) 50.0 % BASIC METABOLIC [id number] 04:27:00* Test Item Value Reference Range Interpretation [...] NOT APPLICABLE FOR DIALYSIS PATIENTS. Specimen markedly [id number] 04:15:00* Test Item Value Reference Range Interpretation Comments MAGNESIUM (BEAKER) (test code = 627) 2.4 mg/dL 1.6-2.6 HEPATIC FUNCTION [id number] 04:15:00* Test Item Value Reference Range Interpretation [...] 134 U/L 6-55 H Specimen markedly ictericPOCT-GLUCOSE [id number] 04:02:00* Test Item Value Reference Range Interpretation Comments POC-GLUCOSE METER (BEAKER) (test code = 1538) 107 mg/dL 70-110 TESTED AT [facility] [address] [facility] [address] [id number] 03:59:00* Test Item Value Reference Range Interpretation Comments PARTIAL THROMBOPLASTIN TIME (BEAKER) (test code = 760) 54.6 seconds 22.5-36.0 H PROTHROMBIN TIME/[id number] 03:58:00* Test Item Value Reference Range Interpretation [...] pat ients with mechanical heart valves.LACTIC ACID, [id number] 03:56:00* Test Item Value Reference Range Interpretation Comments LACTATE BLOOD ARTERIAL (2) (BEAKER) (test code = 2874) 1.1 mmol/L 0.5-2.2 Specimen markedly ictericPOCT-GLUCOSE [id number] 03:10:00* Test Item Value Reference Range Interpretation Comments POC-GLUCOSE METER (BEAKER) (test code = 1538) 118 mg/dL 70-110 H TESTED AT [address] [address] POCT-GLUCOSE [id number] 02:11:00* Test Item Value Reference Range Interpretation Comments POC-GLUCOSE METER (BEAKER) (test code = 1538) 112 mg/dL 70-110 H TESTED AT [address] [address] POCT-GLUCOSE [id number] 01:28:00* Test Item Value Reference Range Interpretation Comments POC-GLUCOSE METER (BEAKER) (test code = 1538) 126 mg/dL 70-110 H TESTED AT [address] [address] BASIC METABOLIC [id number] 00:27:00* Test Item Value Reference Range Interpretation [...] APPLICABLE FOR DIALYSIS PATIENTS. Specimen markedly ictericPOCT-GLUCOSE [id number] 00:22:00* Test Item Value Reference Range Interpretation Comments POC-GLUCOSE METER (BEAKER) (test code = 1538) 155 mg/dL 70-110 H TESTED AT [address] [address] POCT-GLUCOSE [id number] 23:18:00* Test Item Value Reference Range Interpretation Comments POC-GLUCOSE METER (BEAKER) (test code = 1538) 168 mg/dL 70-110 H TESTED AT [address] [address] POCT-GLUCOSE [id number] 22:13:00* Test Item Value Reference Range Interpretation Comments POC-GLUCOSE METER (BEAKER) (test code = 1538) 171 mg/dL 70-110 H TESTED AT [address] [address] [id number] 21:19:00* Test Item Value Reference Range Interpretation Comments MAGNESIUM (BEAKER) (test code = 627) 2.5 mg/dL 1.6-2.6 POCT-GLUCOSE [id number] 21:14:00* Test Item Value Reference Range Interpretation Comments POC-GLUCOSE METER (BEAKER) (test code = 1538) 166 mg/dL 70-110 H TESTED AT [address] [address] CALCIUM, [id number] 21:03:00* Test Item Value Reference Range Interpretation Comments CALCIUM IONIZED (BEAKER) (test code = 698) 1.07 mmol/L 1.12-1.27 L PH, BLOOD (BEAKER) (test code = 1810) 7.52 Check serum Ionized Calcium level after 4 hours after IV Calcium replacement. POCT-GLUCOSE [id number] 20:12:00* Test Item Value Reference Range Interpretation Comments POC-GLUCOSE METER (BEAKER) (test code = 1538) 172 mg/dL 70-110 H TESTED AT [address] [address] POCT-GLUCOSE [id number] 18:57:00* Test Item Value Reference Range Interpretation Comments POC-GLUCOSE METER (BEAKER) (test code = 1538) 158 mg/dL 70-110 H TESTED AT [place] [id number] [facility] [address] POCT-GLUCOSE [id number] 18:57:00* Test Item Value Reference Range Interpretation Comments POC-GLUCOSE METER (BEAKER) (test code = 1538) 172 mg/dL 70-110 H TESTED AT [address] [address] POCT-GLUCOSE [id number] 18:57:00* Test Item Value Reference Range Interpretation Comments POC-GLUCOSE METER (BEAKER) (test code = 1538) 139 mg/dL 70-110 H TESTED AT [address] [address] POCT-GLUCOSE [id number] 18:57:00* Test Item Value Reference Range Interpretation Comments POC-GLUCOSE METER (BEAKER) (test code = 1538) 98 mg/dL 70-110 TESTED AT [address] [address] BASIC METABOLIC [id number] 18:53:00* Test Item Value Reference Range Interpretation [...] FOR DIALYSIS PATIENTS. Specimen markedly ictericEBV VIRAL [id number] 17:58:00* Test Item Value Reference Range Interpretation [...] (2) real-time PCR amplification and detection with LRSE-6-fbgccc ic primers and probes. A well-conserved region [...] its performance characteristic s determined by the [facility] Pathology Department, Section of [place] [facility]. It has not been cleared or approved by the U.S. Food and Zach g Administration (FDA), since FDA approval is not required for clinical use of t he test. Validation was done as required by The Clinical Laboratory Improvement Amendments of 1988.POCT-GLUCOSE [id number] 14:21:00* Test Item Value Reference Range Interpretation Comments POC-GLUCOSE METER (BEAKER) (test code = 1538) 102 mg/dL 70-110 TESTED AT [place] [id number] [facility] [address] POCT-GLUCOSE [id number] 12:29:00* Test Item Value Reference Range Interpretation Comments POC-GLUCOSE METER (BEAKER) (test code = 1538) 101 mg/dL 70-110 TESTED AT [address] [address] BASIC METABOLIC [id number] 11:58:00* Test Item Value Reference Range Interpretation [...] NOT APPLICABLE FOR DIALYSIS PATIENTS. Specimen markedly [id number] 11:55:00* Test Item Value Reference Range Interpretation Comments MAGNESIUM (BEAKER) (test code = 627) 2.8 mg/dL 1.6-2.6 H POCT-GLUCOSE [id number] 11:53:00* Test Item Value Reference Range Interpretation Comments POC-GLUCOSE METER (BEAKER) (test code = 1538) 134 mg/dL 70-110 H TESTED AT [address] [address] POCT-GLUCOSE [id number] 11:53:00* Test Item Value Reference Range Interpretation Comments POC-GLUCOSE METER (BEAKER) (test code = 1538) 134 mg/dL 70-110 H TESTED AT [address] [address] POCT-GLUCOSE [id number] 11:53:00* Test Item Value Reference Range Interpretation Comments POC-GLUCOSE METER (BEAKER) (test code = 1538) 161 mg/dL 70-110 H TESTED AT [address] [address] BLOOD GAS, [id number] 11:41:00* Test Item Value Reference Range Interpretation [...] 50.0 % CBC W/PLT COUNT & AUTO [id number] 10:02:00* Test Item Value Reference Range Interpretation [...] Received comment: User comments: Slide comments: POCT-GLUCOSE [id number] 09:09:00* Test Item Value Reference Range Interpretation Comments POC-GLUCOSE METER (BEAKER) (test code = 1538) 159 mg/dL 70-110 H TESTED AT [facility] [address] [facility] [address] POCT-GLUCOSE [id number] 08:09:00* Test Item Value Reference Range Interpretation Comments POC-GLUCOSE METER (BEAKER) (test code = 1538) 178 mg/dL 70-110 H TESTED AT [facility] [address] [facility] [address] RAD, CHEST, 1 VIEW, NON [id number] 07:32:00Reason for exam:->respiratory insufficiencyShould this be performed [...] MDReport Verified Date/Time: 06/14/2018 07:32:08 Reading Location: [facility] Radiology Reading Room [id number] 06:43:00* Test Item Value Reference Range Interpretation Comments PARTIAL THROMBOPLASTIN TIME (BEAKER) (test code = 760) 45.8 seconds 22.5-36.0 H PROTHROMBIN [id number] 06:42:00* Test Item Value Reference Range Interpretation [...] pat ients with mechanical heart valves.BASIC METABOLIC [id number] 06:41:00* Test Item Value Reference Range Interpretation [...] APPLICABLE FOR DIALYSIS PATIENTS. Specimen markedly ictericPOCT-GLUCOSE [id number] 06:32:00* Test Item Value Reference Range Interpretation Comments POC-GLUCOSE METER (BEAKER) (test code = 1538) 175 mg/dL 70-110 H TESTED AT [address] [address] POCT-GLUCOSE [id number] 05:43:00* Test Item Value Reference Range Interpretation Comments POC-GLUCOSE METER (BEAKER) (test code = 1538) 149 mg/dL 70-110 H TESTED AT [address] [address] POCT-GLUCOSE [id number] 05:43:00* Test Item Value Reference Range Interpretation Comments POC-GLUCOSE METER (BEAKER) (test code = 1538) 140 mg/dL 70-110 H TESTED AT [address] [address] BASIC METABOLIC [id number] 04:55:00* Test Item Value Reference Range Interpretation [...] FOR DIALYSIS PATIENTS. Specimen markedly ictericBLOOD GAS, [id number] 04:37:00* Test Item Value Reference Range Interpretation [...] code = 1819) 60.0 % BASIC METABOLIC [id number] 04:35:00* Test Item Value Reference Range Interpretation [...] NOT APPLICABLE FOR DIALYSIS PATIENTS. Specimen markedly [id number] 04:25:00* Test Item Value Reference Range Interpretation Comments MAGNESIUM (BEAKER) (test code = 627) 2.4 mg/dL 1.6-2.6 HEPATIC FUNCTION [id number] 04:25:00* Test Item Value Reference Range Interpretation [...] 347) 119 U/L 6-55 H Specimen markedly [id number] 04:25:00* Test Item Value Reference Range Interpretation Comments AMYLASE (BEAKER) (test code = 349) 80 U/L 25-125 Specimen markedly [id number] 04:25:00* Test Item Value Reference Range Interpretation Comments LIPASE (BEAKER) (test code = 749) 222 U/L 8-78 H Specimen markedly ictericLACTIC ACID, [id number] 04:17:00* Test Item Value Reference Range Interpretation Comments LACTATE BLOOD ARTERIAL (2) (BEAKER) (test code = 2874) 0.8 mmol/L 0.5-2.2 Specimen markedly ictericPOCT-GLUCOSE [id number] 02:31:00* Test Item Value Reference Range Interpretation Comments POC-GLUCOSE METER (BEAKER) (test code = 1538) 98 mg/dL 70-110 TESTED AT [facility] [address] [facility] [address] POCT-GLUCOSE [id number] 01:45:00* Test Item Value Reference Range Interpretation Comments POC-GLUCOSE METER (BEAKER) (test code = 1538) 120 mg/dL 70-110 H TESTED AT [facility] [address] [facility] [address] POCT-GLUCOSE [id number] 01:45:00* Test Item Value Reference Range Interpretation Comments POC-GLUCOSE METER (BEAKER) (test code = 1538) 171 mg/dL 70-110 H TESTED AT [facility] [address] [facility] [address] CT, CHEST, WITHOUT [id number] 00:56:00FINAL REPORT EXAM: CT of the chest, [...] MDReport Verified Date/Time: 06/14/2018 00:56:49 Reading Location: [address] Body Reading Room Amada ctronically signed by: NICOLÁS CEBALLOS MD on 06/14/2018 12:[address], [id number] 00:56:00With PO contrastFINAL REPORT EXAM: CT of [...] MDReport Verified Date/Time: 06/14/2018 00:56:49 Reading Location: [facility] B1 C013Y [address] Body Reading Room Amada ctronically signed by: NICOLÁS CEBALLOS MD on 06/14/2018 12:56 AM POCT- GLUCOSE [id number] 23:12:00* Test Item Value Reference Range Interpretation Comments POC-GLUCOSE METER (BEAKER) (test code = 1538) 200 mg/dL 70-110 H TESTED AT [facility] [address] [facility] [address] POCT-GLUCOSE [id number] 23:12:00* Test Item Value Reference Range Interpretation Comments POC-GLUCOSE METER (BEAKER) (test code = 1538) 132 mg/dL 70-110 H TESTED AT [facility] [address] [facility] [address] [id number] 21:11:00* Test Item Value Reference Range Interpretation Comments MAGNESIUM (BEAKER) (test code = 627) 2.5 mg/dL 1.6-2.6 POCT-GLUCOSE [id number] 20:48:00* Test Item Value Reference Range Interpretation Comments POC-GLUCOSE METER (BEAKER) (test code = 1538) 103 mg/dL 70-110 TESTED AT [address] [address] POCT-GLUCOSE [id number] 20:48:00* Test Item Value Reference Range Interpretation Comments POC-GLUCOSE METER (BEAKER) (test code = 1538) 98 mg/dL 70-110 TESTED AT [address] [address] POCT-GLUCOSE [id number] 18:14:00* Test Item Value Reference Range Interpretation Comments POC-GLUCOSE METER (BEAKER) (test code = 1538) 108 mg/dL 70-110 TESTED AT [address] [address] BASIC METABOLIC [id number] 18:09:00* Test Item Value Reference Range Interpretation [...] FOR DIALYSIS PATIENTS. Specimen markedly ictericBLOOD GAS, [id number] 16:57:00* Test Item Value Reference Range Interpretation [...] (test code = 1819) 40.0 % POCT-GLUCOSE [id number] 16:51:00* Test Item Value Reference Range Interpretation Comments POC-GLUCOSE METER (BEAKER) (test code = 1538) 107 mg/dL 70-110 TESTED AT [facility] [address] [place] [address] CMV PCR, [id number] 16:28:00* Test Item Value Reference Range Interpretation [...] its performance characteristics determined by charlene greenwood [facility] Pathology Department, Section of Molecular Patholog y. It has not been cleared or approved by the U.S. Food and Drug Administration (FDA), since FDA approval is not required for clinical use of the test. Validati on was done as required by The Clinical Laboratory Improvement Amendments of 198 8.POCT-GLUCOSE [id number] 15:09:00* Test Item Value Reference Range Interpretation Comments POC-GLUCOSE METER (BEAKER) (test code = 1538) 119 mg/dL 70-110 H TESTED AT [place] [id number] [facility] [address] POCT-GLUCOSE [id number] 14:43:00* Test Item Value Reference Range Interpretation Comments POC-GLUCOSE METER (BEAKER) (test code = 1538) 129 mg/dL 70-110 H TESTED AT [address] [address] BASIC METABOLIC [id number] 13:25:00* Test Item Value Reference Range Interpretation [...] APPLICABLE FOR DIALYSIS PATIENTS. Specimen markedly ictericPOCT-GLUCOSE [id number] 13:23:00* Test Item Value Reference Range Interpretation Comments POC-GLUCOSE METER (BEAKER) (test code = 1538) 172 mg/dL 70-110 H TESTED AT [place] [id number] [facility] [address] [id number] 13:14:00* Test Item Value Reference Range Interpretation Comments MAGNESIUM (BEAKER) (test code = 627) 2.6 mg/dL 1.6-2.6 Specimen slightly hemolyzed POCT-GLUCOSE [id number] 12:04:00* Test Item Value Reference Range Interpretation Comments POC-GLUCOSE METER (BEAKER) (test code = 1538) 205 mg/dL 70-110 H TESTED AT [address] [address] POCT-GLUCOSE [id number] 11:10:00* Test Item Value Reference Range Interpretation Comments POC-GLUCOSE METER (BEAKER) (test code = 1538) 182 mg/dL 70-110 H TESTED AT [address] [address] BLOOD GAS, [id number] 10:41:00* Test Item Value Reference Range Interpretation [...] (test code = 1819) 100.0 % POCT-GLUCOSE [id number] 09:50:00* Test Item Value Reference Range Interpretation Comments POC-GLUCOSE METER (BEAKER) (test code = 1538) 138 mg/dL 70-110 H TESTED AT [address] [address] POCT-GLUCOSE [id number] 08:44:00* Test Item Value Reference Range Interpretation Comments POC-GLUCOSE METER (BEAKER) (test code = 1538) 98 mg/dL 70-110 TESTED AT [address] [address] BLOOD GAS, [id number] 06:47:00* Test Item Value Reference Range Interpretation [...] (test code = 1819) 80.0 % POCT-GLUCOSE [id number] 06:41:00* Test Item Value Reference Range Interpretation Comments POC-GLUCOSE METER (BEAKER) (test code = 1538) 123 mg/dL 70-110 H TESTED AT [address] [address] POCT-GLUCOSE [id number] 06:41:00* Test Item Value Reference Range Interpretation Comments POC-GLUCOSE METER (BEAKER) (test code = 1538) 121 mg/dL 70-110 H TESTED AT [address] [address] BASIC METABOLIC [id number] 06:25:00* Test Item Value Reference Range Interpretation [...] FOR DIALYSIS PATIENTS. Specimen markedly ictericBASIC METABOLIC [id number] 03:47:00* Test Item Value Reference Range Interpretation [...] NOT APPLICABLE FOR DIALYSIS PATIENTS. Specimen markedly [id number] 03:41:00* Test Item Value Reference Range Interpretation Comments MAGNESIUM (BEAKER) (test code = 627) 2.7 mg/dL 1.6-2.6 H HEPATIC FUNCTION [id number] 03:41:00* Test Item Value Reference Range Interpretation [...] 347) 104 U/L 6-55 H Specimen markedly [id number] 03:39:00* Test Item Value Reference Range Interpretation Comments PARTIAL THROMBOPLASTIN TIME (BEAKER) (test code = 760) 48.3 seconds 22.5-36.0 H PROTHROMBIN [id number] 03:38:00* Test Item Value Reference Range Interpretation [...] pat ients with mechanical heart valves.LACTIC ACID, [id number] 03:31:00* Test Item Value Reference Range Interpretation Comments LACTATE BLOOD ARTERIAL (2) (BEAKER) (test code = 2874) 0.8 mmol/L 0.5-2.2 Specimen markedly ictericCBC W/PLT COUNT & AUTO [id number] 03:24:00 * Test Item Value Reference Range [...] = 2801) 3 % 0-1 H POCT-GLUCOSE [id number] 03:06:00* Test Item Value Reference Range Interpretation Comments POC-GLUCOSE METER (BEAKER) (test code = 1538) 155 mg/dL 70-110 H TESTED AT [facility] [address] [facility] [address] BASIC METABOLIC [id number] 02:44:00* Test Item Value Reference Range Interpretation [...] FOR DIALYSIS PATIENTS. Specimen markedly ictericBLOOD GAS, [id number] 02:08:00* Test Item Value Reference Range Interpretation [...] 100.0 % RAD, CHEST, 1 VIEW, NON [id number] 01:40:00Reason for exam:->decreased lung sounds; possible aspirationShould this be performed at the bedside?->YesFINAL REPORT CLINICAL INDICATION: Decreased lung sounds, concern for aspiration Comparison: 06/12/2018 The cardiomediastinal contours are stable. The lung volumes remain low. Central pulmonary vascular congestion and bilateral parenchymal opacities are unchanged. There is no pneumothorax. Support lines are stable. Signed: Katherine Reich MDReport Verified Date/Time: 06/14/19 01:40:10 Reading Location: [address] Reading Room [facility] signed by: KATHERINE REICH M.D. on 06/13/2018 01:40 AM RAD, ABDOMEN/KUB, 1 VIEW [id number] 01:37:00Reason for exam:->distended abdomenShould this be performed [...] MDReport Verified Date/Time: 06/13/2018 01:37:29 Reading Location: [address] Reading Room -GLUCOSE [id number] 00:36:00* Test Item Value Reference Range Interpretation Comments POC-GLUCOSE METER (BEAKER) (test code = 1538) 192 mg/dL 70-110 H TESTED AT [address] [address] OCCULT BLOOD, [id number] 22:31:00* Test Item Value Reference Range Interpretation Comments FECAL OCCULT BLOOD (BEAKER) (test code = 618) Positive Negative A [id number] 21:12:00* Test Item Value Reference Range Interpretation Comments MAGNESIUM (BEAKER) (test code = 627) 2.4 mg/dL 1.6-2.6 POCT-GLUCOSE [id number] 20:34:00* Test Item Value Reference Range Interpretation Comments POC-GLUCOSE METER (BEAKER) (test code = 1538) 160 mg/dL 70-110 H TESTED AT [address] [address] BASIC METABOLIC [id number] 18:27:00* Test Item Value Reference Range Interpretation [...] APPLICABLE FOR DIALYSIS PATIENTS. Specimen markedly ictericPOCT-GLUCOSE [id number] 17:35:00* Test Item Value Reference Range Interpretation Comments POC-GLUCOSE METER (BEAKER) (test code = 1538) 136 mg/dL 70-110 H TESTED AT [place] [id number] [facility] [address] BLOOD GAS, [id number] 16:12:00* Test Item Value Reference Range Interpretation [...] (test code = 1819) 40.0 % POCT-GLUCOSE [id number] 14:51:00* Test Item Value Reference Range Interpretation Comments POC-GLUCOSE METER (BEAKER) (test code = 1538) 137 mg/dL 70-110 H TESTED AT [facility] [address] [facility] [address] POCT-GLUCOSE [id number] 13:23:00* Test Item Value Reference Range Interpretation Comments POC-GLUCOSE METER (BEAKER) (test code = 1538) 132 mg/dL 70-110 H TESTED AT [facility] [address] [facility] [address] BLOOD GAS, [id number] 13:13:00* Test Item Value Reference Range Interpretation [...] code = 1819) 40.0 % BASIC METABOLIC [id number] 13:08:00* Test Item Value Reference Range Interpretation [...] NOT APPLICABLE FOR DIALYSIS PATIENTS. Specimen markedly [id number] 13:04:00* Test Item Value Reference Range Interpretation Comments MAGNESIUM (BEAKER) (test code = 627) 2.6 mg/dL 1.6-2.6 POCT-GLUCOSE [id number] 12:17:00* Test Item Value Reference Range Interpretation Comments POC-GLUCOSE METER (BEAKER) (test code = 1538) 123 mg/dL 70-110 H TESTED AT [address] [address] POCT-GLUCOSE [id number] 11:33:00* Test Item Value Reference Range Interpretation Comments POC-GLUCOSE METER (BEAKER) (test code = 1538) 133 mg/dL 70-110 H TESTED AT [address] [address] POCT-GLUCOSE [id number] 10:10:00* Test Item Value Reference Range Interpretation Comments POC-GLUCOSE METER (BEAKER) (test code = 1538) 151 mg/dL 70-110 H TESTED AT [address] [address] POCT-GLUCOSE [id number] 09:07:00* Test Item Value Reference Range Interpretation Comments POC-GLUCOSE METER (BEAKER) (test code = 1538) 155 mg/dL 70-110 H TESTED AT [address] [address] POCT-GLUCOSE [id number] 08:05:00* Test Item Value Reference Range Interpretation Comments POC-GLUCOSE METER (BEAKER) (test code = 1538) 143 mg/dL 70-110 H TESTED AT [address] [address] CBC W/PLT COUNT & AUTO [id number] 07:31:00* Test Item Value Reference Range Interpretation [...] LATION PRESENT RAD, CHEST, 1 VIEW, NON [id number] 06:50:00Reason for exam:-> respiratory insufficiencyShould this be [...] MDReport Verified Date/Time: 06/12/2018 06:50:17 Reading Location: [address] Neuro Reading Room Electronically signed by: MD rafaela MO 06/12/2018 06:50 AM POCT-GLUCOSE [id number] 06:23:00* Test Item Value Reference Range Interpretation Comments POC-GLUCOSE METER (BEAKER) (test code = 1538) 161 mg/dL 70-110 H TESTED AT [facility] [address] [facility] [address] POCT-GLUCOSE [id number] 05:09:00* Test Item Value Reference Range Interpretation Comments POC-GLUCOSE METER (BEAKER) (test code = 1538) 177 mg/dL 70-110 H TESTED AT [facility] [address] [facility] [address] POCT-GLUCOSE [id number] 05:09:00* Test Item Value Reference Range Interpretation Comments POC-GLUCOSE METER (BEAKER) (test code = 1538) 188 mg/dL 70-110 H TESTED AT [place] [id number] [facility] [address] BLOOD GAS, [id number] 04:41:00* Test Item Value Reference Range Interpretation [...] (test code = 1819) 50.0 % CALCIUM, [id number] 04:41:00* Test Item Value Reference Range Interpretation Comments CALCIUM IONIZED (BEAKER) (test code = 698) 1.08 mmol/L 1.12-1.27 L PH, BLOOD (BEAKER) (test code = 1810) 7.44 BASIC METABOLIC [id number] 04:24:00* Test Item Value Reference Range Interpretation [...] NOT APPLICABLE FOR DIALYSIS PATIENTS. Specimen markedly [id number] 04:23:00* Test Item Value Reference Range Interpretation Comments PHOSPHORUS (BEAKER) (test code = 604) 5.0 mg/dL 2.3-4.7 H [id number] 04:23:00* Test Item Value Reference Range Interpretation Comments MAGNESIUM (BEAKER) (test code = 627) 2.8 mg/dL 1.6-2.6 H HEPATIC FUNCTION [id number] 04:23:00* Test Item Value Reference Range Interpretation [...] 347) 96 U/L 6-55 H Specimen markedly [id number] 04:22:00* Test Item Value Reference Range Interpretation Comments PARTIAL THROMBOPLASTIN TIME (BEAKER) (test code = 760) 54.7 seconds 22.5-36.0 H PROTHROMBIN [id number] 04:21:00* Test Item Value Reference Range Interpretation [...] pat ients with mechanical heart valves.LACTIC ACID, [id number] 04:15:00* Test Item Value Reference Range Interpretation Comments LACTATE BLOOD ARTERIAL (2) (BEAKER) (test code = 2874) 0.9 mmol/L 0.5-2.2 Specimen slightly hemolyzed Specimen markedly [id number] 02:06:00* Test Item Value Reference Range Interpretation Comments POTASSIUM (BEAKER) (test code = 379) 3.5 meq/L 3.5-5.1 [id number] 02:06:00* Test Item Value Reference Range Interpretation Comments GLUCOSE RANDOM (BEAKER) (test code = 652) 225 mg/dL 70-105 H BASIC METABOLIC [id number] 00:30:00* Test Item Value Reference Range Interpretation [...] APPLICABLE FOR DIALYSIS PATIENTS. Specimen markedly ictericPOCT-GLUCOSE [id number] 00:28:00* Test Item Value Reference Range Interpretation Comments POC-GLUCOSE METER (BEAKER) (test code = 1538) 245 mg/dL 70-110 H TESTED AT [facility] [address] [facility] [address] BLOOD GAS, [id number] 22:23:00* Test Item Value Reference Range Interpretation [...] code = 1819) 50.0 % BASIC METABOLIC [id number] 20:15:00* Test Item Value Reference Range Interpretation [...] NOT APPLICABLE FOR DIALYSIS PATIENTS. Specimen markedly [id number] 20:07:00* Test Item Value Reference Range Interpretation Comments MAGNESIUM (BEAKER) (test code = 627) 2.6 mg/dL 1.6-2.6 RAD, CHEST, 1 VIEW, NON [id number] 19:02:00Reason for exam:->new right IJ lineShould this [...] MDReport Verified Date/Time: 06/11/2018 19:02:45 Reading Location: [address] Consult Reading Room C METABOLIC [id number] 15:15:00* Test Item Value Reference Range Interpretation [...] NOT APPLICABLE FOR DIALYSIS PATIENTS. Specimen markedly [id number] 15:09:00* Test Item Value Reference Range Interpretation Comments MAGNESIUM (BEAKER) (test code = 627) 2.6 mg/dL 1.6-2.6 POCT-GLUCOSE [id number] 13:44:00* Test Item Value Reference Range Interpretation Comments POC-GLUCOSE METER (BEAKER) (test code = 1538) 226 mg/dL 70-110 H TESTED AT [facility] [address] [facility] [address] SPIN/CONCENTRATION [id number] 12:22:00* Test Item Value Reference Range Interpretation Comments CONCENTRATION CHARGED (BEAKER) (test code = 2657) Done RAD, CHEST, 1 VIEW, NON [id number] 07:49:00Reason for exam:->pulmonary edemaShould this be performed [...] Rodriguez Verified Date/Time: 06/11 07:49:11 Reading Location: [facility] Radiology Reading Room Amada ctronically signed by: GELA RODRIGUEZ M.D. on 06/11/2018 07:49 AM LACTIC ACID, [id number] 04:44:00* Test Item Value Reference Range Interpretation Comments LACTATE BLOOD ARTERIAL (2) (BEAKER) (test code = 2874) 0.9 mmol/L 0.5-2.2 Specimen markedly ictericBASIC METABOLIC [id number] 04:39:00* Test Item Value Reference Range Interpretation [...] NOT APPLICABLE FOR DIALYSIS PATIENTS. Specimen markedly [id number] 04:38:00* Test Item Value Reference Range Interpretation Comments PHOSPHORUS (BEAKER) (test code = 604) 6.5 mg/dL 2.3-4.7 H [id number] 04:38:00* Test Item Value Reference Range Interpretation Comments MAGNESIUM (BEAKER) (test code = 627) 2.7 mg/dL 1.6-2.6 H HEPATIC FUNCTION [id number] 04:38:00* Test Item Value Reference Range Interpretation [...] code = 380) 116 U/L 29-20 0 [id number] 04:33:00* Test Item Value Reference Range Interpretation Comments PARTIAL THROMBOPLASTIN TIME (BEAKER) (test code = 760) 50.5 seconds 22.5-36.0 H PROTHROMBIN [id number] 04:32:00* Test Item Value Reference Range Interpretation [...] mechanical heart valves.CBC W/PLT COUNT & AUTO [id number] 04:29:00* Test Item Value Reference Range Interpretation [...] = 2801) 5 % 0-1 H CALCIUM, [id number] 04:29:00* Test Item Value Reference Range Interpretation Comments CALCIUM IONIZED (BEAKER) (test code = 698) 1.05 mmol/L 1.12-1.27 L PH, BLOOD (BEAKER) (test code = 1810) 7.42 BLOOD GAS, [id number] 04:25:00* Test Item Value Reference Range Interpretation [...] code = 1819) 60.0 % BASIC METABOLIC [id number] 22:15:00* Test Item Value Reference Range Interpretation [...] GFR IS NOT APPLICABLE FOR DIALYSIS PATIENTS. [id number] 21:07:00* Test Item Value Reference Range Interpretation Comments MAGNESIUM (BEAKER) (test code = 627) 2.8 mg/dL 1.6-2.6 H Specimen slightly hemolyzed BASIC METABOLIC [id number] 18:32:00* Test Item Value Reference Range Interpretation [...] FOR DIALYSIS PATIENTS. Specimen markedly ictericBASIC METABOLIC [id number] 12:06:00* Test Item Value Reference Range Interpretation [...] NOT APPLICABLE FOR DIALYSIS PATIENTS. Specimen markedly [id number] 11:59:00* Test Item Value Reference Range Interpretation Comments MAGNESIUM (BEAKER) (test code = 627) 2.4 mg/dL 1.6-2.6 POCT-GLUCOSE [id number] 11:58:00* Test Item Value Reference Range Interpretation Comments POC-GLUCOSE METER (BEAKER) (test code = 1538) 143 mg/dL 70-110 H TESTED AT [facility] [address] [facility] [address] BRONCHIAL CULTURE + GRAM [id number] 09:24:00* Test Item Value Reference Range Interpretation Comments CULTURE (BEAKER) (test code = 1095) No growth GRAM STAIN RESULT (BEAKER) (test code = 1123) 1+ WBCs GRAM STAIN RESULT (BEAKER) (test code = 01241) No organisms seen SPUTUM CULTURE + GRAM [id number] 09:24:00* Test Item Value Reference Range Interpretation Comments CULTURE (BEAKER) (test code = 1095) No growth GRAM STAIN RESULT (BEAKER) (test code = 1123) 1+ WBCs GRAM STAIN RESULT (BEAKER) (test code = 36647) 10-15 epithelial dariel ls GRAM STAIN RESULT (BEAKER) (test code = 62644) <1+ gra m positive cocci in pairs and clusters CBC W/PLT COUNT & AUTO [id number] 08:22:00* Test Item Value Reference Range Interpretation [...] PLATELETS SEEN RAD, CHEST, 1 VIEW, NON [id number] 08:07:00Reason for exam:->pulmonary edemaShould this be performed [...] [place] Verified Date/Time: 06/10/2018 08:07:52 Reading Location: [facility] Radiology Reading Room -GLUCOSE [id number] 05:31:00* Test Item Value Reference Range Interpretation Comments POC-GLUCOSE METER (BEAKER) (test code = 1538) 124 mg/dL 70-110 H TESTED AT [facility] [address] [facility] [address] BASIC METABOLIC [id number] 04:24:00* Test Item Value Reference Range Interpretation [...] NOT APPLICABLE FOR DIALYSIS PATIENTS. Specimen markedly [id number] 04:16:00* Test Item Value Reference Range Interpretation Comments PARTIAL THROMBOPLASTIN TIME (BEAKER) (test code = 760) 47.0 seconds 22.5-36.0 H PROTHROMBIN [id number] 04:15:00* Test Item Value Reference Range Interpretation Comments PROTIME (BEAKER) (test code = 759) 16.9 seconds 11.7-14.7 H INR (BEAKER) (test code = 370) 1.3 <=5.9 RECOMMENDED COUMADIN/WARFARIN INR THERAPY RANGESSTANDARD DOSE: 2.0 - 3.0 Inclu herb: PROPHYLAXIS for venous thrombosis, systemic embolization; TREATMENT for giulia ous thrombosis and/or pulmonary embolus.HIGH RISK: Target INR is 2.5-3.5 for pat ients with mechanical heart valves.[id number] 04:12:00* Test Item Value Reference Range Interpretation Comments MAGNESIUM (BEAKER) (test code = 627) 2.5 mg/dL 1.6-2.6 HEPATIC FUNCTION [id number] 04:12:00* Test Item Value Reference Range Interpretation [...] U/L 6-55 H Specimen markedly ictericLACTIC ACID, [id number] 03:59:00* Test Item Value Reference Range Interpretation Comments LACTATE BLOOD ARTERIAL (2) (BEAKER) (test code = 2874) 0.9 mmol/L 0.5-2.2 Specimen markedly ictericBLOOD GAS, [id number] 03:21:00* Test Item Value Reference Range Interpretation [...] (test code = 1819) 60.0 % CALCIUM, [id number] 03:19:00* Test Item Value Reference Range Interpretation Comments CALCIUM IONIZED (BEAKER) (test code = 698) 1.12 mmol/L 1.12-1.27 PH, BLOOD (BEAKER) (test code = 1810) 7.44 Check serum Ionized Calcium level after 4 hours after IV Calcium replacement. BASIC METABOLIC [id number] 00:53:00* Test Item Value Reference Range Interpretation [...] APPLICABLE FOR DIALYSIS PATIENTS. Specimen markedly ictericPOCT-GLUCOSE [id number] 00:29:00* Test Item Value Reference Range Interpretation Comments POC-GLUCOSE METER (BEAKER) (test code = 1538) 176 mg/dL 70-110 H TESTED AT [facility] [address] [facility] [address] POCT-GLUCOSE [id number] 21:27:00* Test Item Value Reference Range Interpretation Comments POC-GLUCOSE METER (BEAKER) (test code = 1538) 134 mg/dL 70-110 H TESTED AT [address] [address] [id number] 20:56:00* Test Item Value Reference Range Interpretation Comments MAGNESIUM (BEAKER) (test code = 627) 2.2 mg/dL 1.6-2.6 CALCIUM, [id number] 20:46:00* Test Item Value Reference Range Interpretation Comments CALCIUM IONIZED (BEAKER) (test code = 698) 1.08 mmol/L 1.12-1.27 L PH, BLOOD (BEAKER) (test code = 1810) 7.44 BLOOD GAS, [id number] 20:46:00* Test Item Value Reference Range Interpretation [...] (test code = 1819) 60.0 % POCT-GLUCOSE [id number] 20:20:00* Test Item Value Reference Range Interpretation Comments POC-GLUCOSE METER (BEAKER) (test code = 1538) 142 mg/dL 70-110 H TESTED AT [address] [address] BASIC METABOLIC [id number] 18:55:00* Test Item Value Reference Range Interpretation [...] PATIENTS. Specimen markedly ictericRAD, ABDOMEN/KUB, 1 VIEW [id number] 17:56:00Reason for exam:->feeding tube placement.FINAL REPORT CLINICAL [...] MDReport Verified Date/Time: 06/09/2018 17:56:44 Reading Location: [address] Reading Room -GLUCOSE [id number] 17:49:00* Test Item Value Reference Range Interpretation Comments POC-GLUCOSE METER (BEAKER) (test code = 1538) 131 mg/dL 70-110 H TESTED AT [place] [id number] [facility] [address] POCT-GLUCOSE [id number] 16:36:00* Test Item Value Reference Range Interpretation Comments POC-GLUCOSE METER (BEAKER) (test code = 1538) 112 mg/dL 70-110 H TESTED AT [place] [id number] [facility] [address] POCT-GLUCOSE [id number] 14:37:00* Test Item Value Reference Range Interpretation Comments POC-GLUCOSE METER (BEAKER) (test code = 1538) 88 mg/dL 70-110 TESTED AT [place] [id number] [facility] [address] POCT-GLUCOSE [id number] 12:48:00* Test Item Value Reference Range Interpretation Comments POC-GLUCOSE METER (BEAKER) (test code = 1538) 104 mg/dL 70-110 TESTED AT [facility] [address] [facility] [address] [id number] 12:46:00* Test Item Value Reference Range Interpretation Comments MAGNESIUM (BEAKER) (test code = 627) 2.3 mg/dL 1.6-2.6 BASIC METABOLIC [id number] 12:46:00* Test Item Value Reference Range Interpretation [...] NOT APPLICABLE FOR DIALYSIS PATIENTS. HEMOGLOBIN AND [id number] 11:59:00* Test Item Value Reference Range Interpretation Comments HEMOGLOBIN (BEAKER) (test code = 410) 8.0 GM/DL 13.7-17.5 L HEMATOCRIT (BEAKER) (test code = 411) 24.8 % 40.1-51.0 L BLOOD GAS, [id number] 11:29:00* Test Item Value Reference Range Interpretation [...] code = 1819) 60.0 % BASIC METABOLIC [id number] 07:54:00* Test Item Value Reference Range Interpretation [...] FOR DIALYSIS PATIENTS. Specimen markedly ictericBLOOD GAS, [id number] 06:45:00* Test Item Value Reference Range Interpretation [...] code = 1819) 75.0 % BASIC METABOLIC [id number] 06:44:00* Test Item Value Reference Range Interpretation [...] APPLICABLE FOR DIALYSIS PATIENTS. Specimen markedly ictericPOCT-GLUCOSE [id number] 06:22:00* Test Item Value Reference Range Interpretation Comments POC-GLUCOSE METER (BEAKER) (test code = 1538) 145 mg/dL 70-110 H TESTED AT [facility] [address] [place] [address] [id number] 06:17:00* Test Item Value Reference Range Interpretation Comments MAGNESIUM (BEAKER) (test code = 627) 2.2 mg/dL 1.6-2.6 HEPATIC FUNCTION [id number] 06:17:00* Test Item Value Reference Range Interpretation [...] U/L 6-55 H Specimen markedly ictericBLOOD GAS, [id number] 06:04:00* Test Item Value Reference Range Interpretation [...] 75.0 % RAD, CHEST, 1 VIEW, NON [id number] 05:48:00Reason for exam:->pulmonary edemaShould this be performed [...] MDReport Verified Date/Time: 06/09/2018 05:48:52 Reading Location: [address] Neuro Reading Room D GAS, [id number] 04:53:00* Test Item Value Reference Range Interpretation [...] (test code = 1819) 75.0 % CALCIUM, [id number] 04:52:00* Test Item Value Reference Range Interpretation Comments CALCIUM IONIZED (BEAKER) (test code = 698) 1.08 mmol/L 1.12-1.27 L PH, BLOOD (BEAKER) (test code = 1810) 7.55 POCT-GLUCOSE [id number] 04:32:00* Test Item Value Reference Range Interpretation Comments POC-GLUCOSE METER (BEAKER) (test code = 1538) 144 mg/dL 70-110 H TESTED AT [address] [address] CBC W/PLT COUNT & AUTO [id number] 04:27:00* Test Item Value Reference Range Interpretation [...] code = 2801) 3 % 0-1 H [id number] 04:21:00* Test Item Value Reference Range Interpretation Comments PARTIAL THROMBOPLASTIN TIME (BEAKER) (test code = 760) 49.5 seconds 22.5-36.0 H PROTHROMBIN [id number] 04:20:00* Test Item Value Reference Range Interpretation Comments PROTIME (BEAKER) (test code = 759) 17.8 seconds 11.7-14.7 H INR (BEAKER) (test code = 370) 1.5 <=5.9 RECOMMENDED COUMADIN/WARFARIN INR THERAPY RANGESSTANDARD DOSE: 2.0 - 3.0 Inclu herb: PROPHYLAXIS for venous thrombosis, systemic embolization; TREATMENT for giulia ous thrombosis and/or pulmonary embolus.HIGH RISK: Target INR is 2.5-3.5 for pat ients with mechanical heart valves.POCT-GLUCOSE [id number] 03:44:00* Test Item Value Reference Range Interpretation Comments POC-GLUCOSE METER (BEAKER) (test code = 1538) 147 mg/dL 70-110 H TESTED AT [address] [address] BASIC METABOLIC [id number] 03:13:00* Test Item Value Reference Range Interpretation [...] APPLICABLE FOR DIALYSIS PATIENTS. Specimen markedly ictericPOCT-GLUCOSE [id number] 02:34:00* Test Item Value Reference Range Interpretation Comments POC-GLUCOSE METER (BEAKER) (test code = 1538) 158 mg/dL 70-110 H TESTED AT [address] [address] POCT-GLUCOSE [id number] 01:37:00* Test Item Value Reference Range Interpretation Comments POC-GLUCOSE METER (BEAKER) (test code = 1538) 158 mg/dL 70-110 H TESTED AT [address] [address] POCT-GLUCOSE [id number] 23:59:00* Test Item Value Reference Range Interpretation Comments POC-GLUCOSE METER (BEAKER) (test code = 1538) 150 mg/dL 70-110 H TESTED AT [address] [address] [id number] 22:28:00* Test Item Value Reference Range Interpretation Comments MAGNESIUM (BEAKER) (test code = 627) 2.4 mg/dL 1.6-2.6 Specimen slightly hemolyzed Check Serum Potassium level 2 hours after oral potassium replacement completed o r 30 min after intravenous potassium replacement.[id number] 21:44:00* Test Item Value Reference Range Interpretation Comments POTASSIUM (BEAKER) (test code = 379) 3.6 meq/L 3.5-5.1 Specimen slightly hemolyzed Check Serum Potassium level 2 hours after oral potassium replacement completed o r 30 min after intravenous potassium replacement.CALCIUM, [id number] 21:20:00* Test Item Value Reference Range Interpretation Comments CALCIUM IONIZED (BEAKER) (test code = 698) 1.06 mmol/L 1.12-1.27 L PH, BLOOD (BEAKER) (test code = 1810) 7.52 Check serum Ionized Calcium level after 4 hours after IV Calcium replacement. BASIC METABOLIC [id number] 20:46:00* Test Item Value Reference Range Interpretation [...] APPLICABLE FOR DIALYSIS PATIENTS. Specimen markedly ictericPOCT-GLUCOSE [id number] 20:42:00* Test Item Value Reference Range Interpretation Comments POC-GLUCOSE METER (BEAKER) (test code = 1538) 158 mg/dL 70-110 H TESTED AT [facility] [address] [facility] [address] BLOOD [id number] 20:01:00* Test Item Value Reference Range Interpretation Comments CULTURE (BEAKER) (test code = 1095) No growth in 5 days BLOOD [id number] 20:01:00* Test Item Value Reference Range Interpretation Comments CULTURE (BEAKER) (test code = 1095) No growth in 5 days BLOOD GAS, [id number] 18:23:00* Test Item Value Reference Range Interpretation [...] (test code = 1819) 75.0 % POCT-GLUCOSE [id number] 18:21:00* Test Item Value Reference Range Interpretation Comments POC-GLUCOSE METER (BEAKER) (test code = 1538) 145 mg/dL 70-110 H TESTED AT [facility] [address] [facility] [address] POCT-GLUCOSE [id number] 18:21:00* Test Item Value Reference Range Interpretation Comments POC-GLUCOSE METER (BEAKER) (test code = 1538) 122 mg/dL 70-110 H TESTED AT [place] [id number] [facility] [address] CORTISOL,60 [id number] 18:04:00* Test Item Value Reference Range Interpretation [...] to a study by Debbie et al ([facility] 2000,283(8):6936-45), the ACTH Stimulation Test provides important prognostic [...] level 60 minutes after cosyntropin administration. CORTISOL,30 [id number] 17:15:00* Test Item Value Reference Range Interpretation [...] to a study by Debbie et al ([facility] 2000,283(8):7056-45), the ACTH Stimulation Test provides important prognostic [...] level 60 minutes after cosyntropin administration.POCT- GLUCOSE [id number] 15:59:00* Test Item Value Reference Range Interpretation Comments POC-GLUCOSE METER (BEAKER) (test code = 1538) 162 mg/dL 70-110 H TESTED AT [facility] [address] [facility] [address] CORTISOL,[id number] 14:41:00* Test Item Value Reference Range Interpretation [...] a study by Debbie et al ([facility] 2000,283(2):4886-52), the ACTH Stimulation Test provides important prognostic [...] level 60 minutes after cosyntropin administration.POCT- GLUCOSE [id number] 13:55:00* Test Item Value Reference Range Interpretation Comments POC-GLUCOSE METER (BEAKER) (test code = 1538) 158 mg/dL 70-110 H TESTED AT [facility] [address] [facility] [address] POCT-GLUCOSE [id number] 13:55:00* Test Item Value Reference Range Interpretation Comments POC-GLUCOSE METER (BEAKER) (test code = 1538) 117 mg/dL 70-110 H TESTED AT [facility] [address] [facility] [address] BASIC METABOLIC [id number] 13:17:00* Test Item Value Reference Range Interpretation [...] NOT APPLICABLE FOR DIALYSIS PATIENTS. Specimen markedly [id number] 13:13:00* Test Item Value Reference Range Interpretation Comments MAGNESIUM (BEAKER) (test code = 627) 2.5 mg/dL 1.6-2.6 POCT-GLUCOSE [id number] 12:15:00* Test Item Value Reference Range Interpretation Comments POC-GLUCOSE METER (BEAKER) (test code = 1538) 139 mg/dL 70-110 H TESTED AT [address] [address] BLOOD GAS, [id number] 11:28:00* Test Item Value Reference Range Interpretation [...] (BEAKER) (test code = 1819) 75.0 % [id number] 09:54:00* Test Item Value Reference Range Interpretation Comments MAGNESIUM (BEAKER) (test code = 627) 2.5 mg/dL 1.6-2.6 Specimen slightly hemolyzed CALCIUM, [id number] 09:22:00* Test Item Value Reference Range Interpretation Comments CALCIUM IONIZED (BEAKER) (test code = 698) 1.08 mmol/L 1.12-1.27 L PH, BLOOD (BEAKER) (test code = 1810) 7.48 Check serum Ionized Calcium level after 4 hours after IV Calcium replacement.CT, CHEST, WITHOUT [id number] 09:01:00FINAL REPORT CT scan of the chest, [...] MDReport Verified Date/Time: 06/08/2018 09:01:11 Reading Location: [place] [id number] 3X Ortho Consult Reading Room , [id number] 09:01:00FINAL REPORT CT scan of the chest, [...] Sloaneport Verified Date/Time: 06/08/2018 09:01:11 Reading Location: [facility] C01 3X Ortho Consult Reading Room -GLUCOSE [id number] 06:37:00* Test Item Value Reference Range Interpretation Comments POC-GLUCOSE METER (BEAKER) (test code = 1538) 142 mg/dL 70-110 H TESTED AT [facility] [address] [facility] [address] BLOOD GAS, [id number] 06:34:00* Test Item Value Reference Range Interpretation [...] (BEAKER) (test code = 1819) 90.0 % [id number] 06:11:00* Test Item Value Reference Range Interpretation Comments PARTIAL THROMBOPLASTIN TIME (BEAKER) (test code = 760) 54.2 seconds 22.5-36.0 H PROTHROMBIN [id number] 06:10:00* Test Item Value Reference Range Interpretation [...] pat ients with mechanical heart valves.HEPATIC FUNCTION [id number] 05:51:00* Test Item Value Reference Range Interpretation [...] U/L 6-55 H Specimen markedly ictericBASIC METABOLIC [id number] 05:51:00* Test Item Value Reference Range Interpretation [...] APPLICABLE FOR DIALYSIS PATIENTS. Specimen markedly ictericPOCT-GLUCOSE [id number] 05:43:00* Test Item Value Reference Range Interpretation Comments POC-GLUCOSE METER (BEAKER) (test code = 1538) 140 mg/dL 70-110 H TESTED AT [facility] [address] [facility] [address] [id number] 05:36:00* Test Item Value Reference Range Interpretation Comments MAGNESIUM (BEAKER) (test code = 627) 2.3 mg/dL 1.6-2.6 [id number] 05:25:00* Test Item Value Reference Range Interpretation Comments PHOSPHORUS (BEAKER) (test code = 604) 4.9 mg/dL 2.3-4.7 H Specimen slightly hemolyzed Check Serum Phosphorus level 4 hours after IV phosphorus replacement or 8 hours after PO replacement completed.POCT-GLUCOSE [id number] 04:20:00* Test Item Value Reference Range Interpretation Comments POC-GLUCOSE METER (BEAKER) (test code = 1538) 153 mg/dL 70-110 H TESTED AT [facility] [address] [facility] [address] RAD, CHEST, 1 VIEW, NON [id number] 04:10:00Reason for exam:->s/p intubation FINAL REPORT CLINICAL [...] V erified Date/Time: 06/08/2018 04:10:15 Reading Location: [address] Reading Room W/PLT COUNT & AUTO [id number] 03:53:00* Test Item Value Reference Range Interpretation [...] = 2801) 2 % 0-1 H CALCIUM, [id number] 02:54:00* Test Item Value Reference Range Interpretation Comments CALCIUM IONIZED (BEAKER) (test code = 698) 1.09 mmol/L 1.12-1.27 L PH, BLOOD (BEAKER) (test code = 1810) 7.45 Check serum Ionized Calcium level after 4 hours after IV Calcium replacement. BLOOD GAS, [id number] 02:54:00* Test Item Value Reference Range Interpretation [...] 100.0 % RAD, CHEST, 1 VIEW, NON [id number] 02:16:00Reason for exam:->tachypneaFINAL REPORT CLINICAL INDICATION: Kidney [...] Verified Date/Time: 0 06/08/2018 02:16:21 Reading Location: [address] Reading Room E lectronically signed by: KATHERINE REICH M.D. on 06/08/2018 02:16 AM BASIC METABOLIC [id number] 01:44:00* Test Item Value Reference Range Interpretation [...] APPLICABLE FOR DIALYSIS PATIENTS. Specimen markedly ictericPOCT-GLUCOSE [id number] 01:18:00* Test Item Value Reference Range Interpretation Comments POC-GLUCOSE METER (BEAKER) (test code = 1538) 122 mg/dL 70-110 H TESTED AT [address] [address] BLOOD GAS, [id number] 01:03:00* Test Item Value Reference Range Interpretation [...] (test code = 1819) 100.0 % POCT-GLUCOSE [id number] 00:19:00* Test Item Value Reference Range Interpretation Comments POC-GLUCOSE METER (BEAKER) (test code = 1538) 136 mg/dL 70-110 H TESTED AT [facility] [address] [facility] [address] BLOOD GAS, [id number] 23:19:00* Test Item Value Reference Range Interpretation [...] (test code = 1819) 40.0 % POCT-GLUCOSE [id number] 22:58:00* Test Item Value Reference Range Interpretation Comments POC-GLUCOSE METER (BEAKER) (test code = 1538) 128 mg/dL 70-110 H TESTED AT [facility] [address] [facility] [address] POCT-GLUCOSE [id number] 22:00:00* Test Item Value Reference Range Interpretation Comments POC-GLUCOSE METER (BEAKER) (test code = 1538) 108 mg/dL 70-110 TESTED AT [address] [address] BASIC METABOLIC [id number] 21:50:00* Test Item Value Reference Range Interpretation [...] NOT APPLICABLE FOR DIALYSIS PATIENTS. Specimen markedly [id number] 21:38:00* Test Item Value Reference Range Interpretation Comments MAGNESIUM (BEAKER) (test code = 627) 2.0 mg/dL 1.6-2.6 CALCIUM, [id number] 21:15:00* Test Item Value Reference Range Interpretation Comments CALCIUM IONIZED (BEAKER) (test code = 698) 1.12 mmol/L 1.12-1.27 PH, BLOOD (BEAKER) (test code = 1810) 7.51 Check serum Ionized Calcium level after 4 hours after IV Calcium replacement. POCT-GLUCOSE [id number] 20:58:00* Test Item Value Reference Range Interpretation Comments POC-GLUCOSE METER (BEAKER) (test code = 1538) 97 mg/dL 70-110 TESTED AT [address] [address] POCT-GLUCOSE [id number] 19:42:00* Test Item Value Reference Range Interpretation Comments POC-GLUCOSE METER (BEAKER) (test code = 1538) 101 mg/dL 70-110 TESTED AT [address] [address] POCT-GLUCOSE [id number] 18:42:00* Test Item Value Reference Range Interpretation Comments POC-GLUCOSE METER (BEAKER) (test code = 1538) 97 mg/dL 70-110 TESTED AT [address] [address] BLOOD GAS, [id number] 16:56:00* Test Item Value Reference Range Interpretation [...] (test code = 1819) 100.0 % POCT-GLUCOSE [id number] 16:45:00* Test Item Value Reference Range Interpretation Comments POC-GLUCOSE METER (BEAKER) (test code = 1538) 149 mg/dL 70-110 H TESTED AT [facility] [address] [facility] [address] POCT-GLUCOSE [id number] 15:25:00* Test Item Value Reference Range Interpretation Comments POC-GLUCOSE METER (BEAKER) (test code = 1538) 74 mg/dL 70-110 TESTED AT [place] [id number] [facility] [address] POCT-GLUCOSE [id number] 14:31:00* Test Item Value Reference Range Interpretation Comments POC-GLUCOSE METER (BEAKER) (test code = 1538) 129 mg/dL 70-110 H TESTED AT [place] [id number] [facility] [address] [id number] 13:46:00* Test Item Value Reference Range Interpretation Comments MAGNESIUM (BEAKER) (test code = 627) 1.8 mg/dL 1.6-2.6 BASIC METABOLIC [id number] 13:46:00* Test Item Value Reference Range Interpretation [...] APPLICABLE FOR DIALYSIS PATIENTS. Specimen markedly ictericPOCT-GLUCOSE [id number] 13:03:00* Test Item Value Reference Range Interpretation Comments POC-GLUCOSE METER (BEAKER) (test code = 1538) 182 mg/dL 70-110 H TESTED AT [facility] [address] [facility] [address] ANTI-MITOCHONDRIAL AB, REFLEX TO [id number] 11:38:00* Test Item Value Reference Range Interpretation Comments SCAN RESULT (test code = 2347809) CBC W/PLT COUNT & AUTO [id number] 11:36:00* Test Item Value Reference Range Interpretation [...] Received comment: User comments: Slide comments: POCT-GLUCOSE [id number] 11:35:00* Test Item Value Reference Range Interpretation Comments POC-GLUCOSE METER (BEAKER) (test code = 1538) 128 mg/dL 70-110 H TESTED AT [facility] [address] [facility] [address] POCT-GLUCOSE [id number] 11:13:00* Test Item Value Reference Range Interpretation Comments POC-GLUCOSE METER (BEAKER) (test code = 1538) 97 mg/dL 70-110 TESTED AT [facility] [address] [facility] [address] POCT-GLUCOSE [id number] 11:13:00* Test Item Value Reference Range Interpretation Comments POC-GLUCOSE METER (BEAKER) (test code = 1538) 68 mg/dL 70-110 L TESTED AT [facility] [address] [facility] [address] BLOOD GAS, [id number] 10:41:00* Test Item Value Reference Range Interpretation [...] code = 1819) 100.0 % CATHETER TIP [id number] 09:30:00* Test Item Value Reference Range Interpretation Comments CULTURE (BEAKER) (test code = 1095) No growth BLOOD GAS, [id number] 08:13:00* Test Item Value Reference Range Interpretation [...] (test code = 1819) 65.0 % POCT-GLUCOSE [id number] 07:48:00* Test Item Value Reference Range Interpretation Comments POC-GLUCOSE METER (BEAKER) (test code = 1538) 127 mg/dL 70-110 H TESTED AT [facility] [address] [facility] [address] RAD, CHEST, 1 VIEW, NON [id number] 07:37:00Reason for exam:->resp failureShould this be performed [...] Garcia Verified Date/Time: 06/07/2018 07:37:40 Reading Location: [facility] Radiology Reading Room -GLUCOSE METER 2018-06-07 06:32:00* Test Item Value Reference Range Interpretation Comments POC-GLUCOSE METER (BEAKER) (test code = 1538) 165 mg/dL 70-110 H TESTED AT [place] [id number] [facility] [address] BLOOD GAS, [id number] 05:35:00* Test Item Value Reference Range Interpretation [...] (test code = 1819) 60.0 % CALCIUM, [id number] 05:35:00* Test Item Value Reference Range Interpretation Comments CALCIUM IONIZED (BEAKER) (test code = 698) 0.96 mmol/L 1.12-1.27 L PH, BLOOD (BEAKER) (test code = 1810) 7.45 HEPATIC FUNCTION [id number] 05:32:00* Test Item Value Reference Range Interpretation [...] 103 U/L 6-55 H Specimen markedly ictericPOCT-GLUCOSE [id number] 05:18:00* Test Item Value Reference Range Interpretation Comments POC-GLUCOSE METER (BEAKER) (test code = 1538) 182 mg/dL 70-110 H TESTED AT [facility] [address] [facility] [address] BASIC METABOLIC [id number] 05:17:00* Test Item Value Reference Range Interpretation [...] FOR DIALYSIS PATIENTS. Specimen markedly ictericLACTIC ACID, [id number] 04:58:00* Test Item Value Reference Range Interpretation Comments LACTATE BLOOD ARTERIAL (2) (BEAKER) (test code = 2874) 1.2 mmol/L 0.5-2.2 Specimen markedly [id number] 04:50:00* Test Item Value Reference Range Interpretation Comments PARTIAL THROMBOPLASTIN TIME (BEAKER) (test code = 760) 43.5 seconds 22.5-36.0 H PROTHROMBIN TIME/[id number] 04:49:00* Test Item Value Reference Range Interpretation Comments PROTIME (BEAKER) (test code = 759) 18.1 seconds 11.7-14.7 H INR (BEAKER) (test code = 370) 1.5 <=5.9 RECOMMENDED COUMADIN/WARFARIN INR THERAPY RANGESSTANDARD DOSE: 2.0 - 3.0 Inclu herb: PROPHYLAXIS for venous thrombosis, systemic embolization; TREATMENT for giulia ous thrombosis and/or pulmonary embolus.HIGH RISK: Target INR is 2.5-3.5 for pat ients with mechanical heart valves.POCT-GLUCOSE [id number] 04:16:00* Test Item Value Reference Range Interpretation Comments POC-GLUCOSE METER (BEAKER) (test code = 1538) 180 mg/dL 70-110 H TESTED AT [address] [address] POCT-GLUCOSE [id number] 03:20:00* Test Item Value Reference Range Interpretation Comments POC-GLUCOSE METER (BEAKER) (test code = 1538) 171 mg/dL 70-110 H TESTED AT [address] [address] POCT-GLUCOSE [id number] 02:44:00* Test Item Value Reference Range Interpretation Comments POC-GLUCOSE METER (BEAKER) (test code = 1538) 154 mg/dL 70-110 H TESTED AT [address] [address] POCT-GLUCOSE [id number] 01:31:00* Test Item Value Reference Range Interpretation Comments POC-GLUCOSE METER (BEAKER) (test code = 1538) 140 mg/dL 70-110 H TESTED AT [place] [address]330 BASIC METABOLIC [id number] 01:02:00* Test Item Value Reference Range Interpretation [...] APPLICABLE FOR DIALYSIS PATIENTS. Specimen markedly ictericPOCT-GLUCOSE [id number] 00:57:00* Test Item Value Reference Range Interpretation Comments POC-GLUCOSE METER (BEAKER) (test code = 1538) 173 mg/dL 70-110 H TESTED AT [address] [address] POCT-GLUCOSE [id number] 23:27:00* Test Item Value Reference Range Interpretation Comments POC-GLUCOSE METER (BEAKER) (test code = 1538) 155 mg/dL 70-110 H TESTED AT [place] [address]330 BASIC METABOLIC [id number] 22:38:00* Test Item Value Reference Range Interpretation [...] NOT APPLICABLE FOR DIALYSIS PATIENTS. Specimen markedly [id number] 22:37:00* Test Item Value Reference Range Interpretation Comments MAGNESIUM (BEAKER) (test code = 627) 2.0 mg/dL 1.6-2.6 BLOOD GAS, [id number] 22:18:00* Test Item Value Reference Range Interpretation [...] (test code = 1819) 60.0 % CALCIUM, [id number] 22:15:00* Test Item Value Reference Range Interpretation Comments CALCIUM IONIZED (BEAKER) (test code = 698) 1.05 mmol/L 1.12-1.27 L PH, BLOOD (BEAKER) (test code = 1810) 7.46 POCT-GLUCOSE [id number] 22:08:00* Test Item Value Reference Range Interpretation Comments POC-GLUCOSE METER (BEAKER) (test code = 1538) 138 mg/dL 70-110 H TESTED AT [place] [id number] [facility] [address] POCT-GLUCOSE [id number] 21:16:00* Test Item Value Reference Range Interpretation Comments POC-GLUCOSE METER (BEAKER) (test code = 1538) 158 mg/dL 70-110 H TESTED AT [address] [address] [id number] 21:03:00* Test Item Value Reference Range Interpretation Comments POTASSIUM (BEAKER) (test code = 379) 3.8 meq/L 3.5-5.1 Check Serum Potassium level 2 hours after oral potassium replacement completed o r 30 min after intravenous potassium replacement.[id number] 21:03:00* Test Item Value Reference Range Interpretation Comments MAGNESIUM (BEAKER) (test code = 627) 2.0 mg/dL 1.6-2.6 Check Serum Potassium level 2 hours after oral potassium replacement completed o r 30 min after intravenous potassium replacement.POCT-GLUCOSE [id number] 20:15:00* Test Item Value Reference Range Interpretation Comments POC-GLUCOSE METER (BEAKER) (test code = 1538) 161 mg/dL 70-110 H TESTED AT [address] [address] POCT-GLUCOSE [id number] 20:15:00* Test Item Value Reference Range Interpretation Comments POC-GLUCOSE METER (BEAKER) (test code = 1538) 113 mg/dL 70-110 H TESTED AT [address] [address] POCT-GLUCOSE [id number] 19:33:00* Test Item Value Reference Range Interpretation Comments POC-GLUCOSE METER (BEAKER) (test code = 1538) 169 mg/dL 70-110 H TESTED AT [address] [address] [id number] 17:52:00* Test Item Value Reference Range Interpretation Comments CORTISOL, TOTAL (BEAKER) (test code = 2755) 23.9 ug/dL 3.7-19.4 H C. DIFFICILE GDH [id number] 17:45:00* Test Item Value Reference Range Interpretation Comments CDT TOXIN (test code = 0940653631) Negative Negative CDT GDH ANTIGEN (test code = 3698366934) Positive Negative A C. difficile present but [...] of kit performance was done by the [facility] Microbiology Lab prior to cl inical use.BASIC METABOLIC [id number] 16:48:00* Test Item Value Reference Range Interpretation [...] APPLICABLE FOR DIALYSIS PATIENTS. Specimen markedly ictericPOCT-GLUCOSE [id number] 15:10:00* Test Item Value Reference Range Interpretation Comments POC-GLUCOSE METER (BEAKER) (test code = 1538) 78 mg/dL 70-110 TESTED AT [facility] [address] [facility] [address] TROPONIN [id number] 13:26:00* Test Item Value Reference Range Interpretation [...] acidosis, acute neurological disease, and per sistent tachyarrhythmia.[id number] 13:14:00* Test Item Value Reference Range Interpretation [...] 0.50 MG/L FEU, the Negative Predictive Value (MANUAL CONTROL AUGER PRESS OPERATOR V) regarding the exclusion of thrombosis is within 95-100% range.LACTIC ACID, [id number] 13:12:00* Test Item Value Reference Range Interpretation Comments LACTATE BLOOD ARTERIAL (2) (BEAKER) (test code = 2874) 1.3 mmol/L 0.5-2.2 Specimen markedly [id number] 12:57:00* Test Item Value Reference Range Interpretation Comments MAGNESIUM (BEAKER) (test code = 627) 2.1 mg/dL 1.6-2.6 POCT-GLUCOSE [id number] 12:21:00* Test Item Value Reference Range Interpretation Comments POC-GLUCOSE METER (BEAKER) (test code = 1538) 162 mg/dL 70-110 H TESTED AT [facility] [address] [facility] [address] BLOOD [id number] 12:01:00* Test Item Value Reference Range Interpretation Comments CULTURE (BEAKER) (test code = 1095) No growth in 5 days BLOOD [id number] 12:01:00* Test Item Value Reference Range Interpretation Comments CULTURE (BEAKER) (test code = 1095) No growth in 5 days YARI ANTIGEN WITH REFLEX TO [id number] 11:08:00* Test Item Value Reference Range Interpretation Comments YARI ANTIGEN (BEAKER) (test code = 1782) Positive YARI ANTIGEN [id number] 11:08:00* Test Item Value Reference Range Interpretation Comments YARI ANTIGEN TITER (BEAKER) (test code = 737) :4 POCT-GLUCOSE [id number] 11:00:00* Test Item Value Reference Range Interpretation Comments POC-GLUCOSE METER (BEAKER) (test code = 1538) 153 mg/dL 70-110 H TESTED AT [facility] [address] [facility] [address] RAD, CHEST, 1 VIEW, NON [id number] 10:38:00Reason for exam:->oxygen desaturation in setting of [...] MDReport Verified Date/Time: 06/06/2018 10:38:12 Reading Location: [facility] Radiology Reading Room -NUCLEAR ANTIBODY (TOM)2018-06-06 [...] (BEAKER) (test code = 1819) 100.0 % [id number] 09:37:00* Test Item Value Reference Range Interpretation Comments LIPASE (BEAKER) (test code = 749) 6 U/L 8-78 L Specimen markedly ictericHEPATIC FUNCTION [id number] 09:37:00* Test Item Value Reference Range Interpretation [...] 347) 105 U/L 6-55 H Specimen markedly [id number] 09:36:00* Test Item Value Reference Range Interpretation Comments AMYLASE (BEAKER) (test code = 349) 17 U/L 25-125 L Specimen markedly [id number] 09:24:00* Test Item Value Reference Range Interpretation Comments CORTISOL, TOTAL (BEAKER) (test code = 2755) 19.9 ug/dL 3.7-19.4 H SPUTUM CULTURE + GRAM [id number] 08:59:00* Test Item Value Reference Range Interpretation Comments CULTURE (BEAKER) (test code = 1095) No growth GRAM STAIN RESULT (BEAKER) (test code = 1123) 3+ WBCs GRAM STAIN RESULT (BEAKER) (test code = 44095) 0-5 epithelial cells GRAM STAIN RESULT (BEAKER) (test code = 72820) No organisms seen BRONCHIAL CULTURE + GRAM [id number] 08:58:00* Test Item Value Reference Range Interpretation Comments CULTURE (BEAKER) (test code = 1095) <1+ Normal respiratory chase pr esent GRAM STAIN RESULT (BEAKER) (test code = 1123) 4+ WBCs GRAM STAIN RESULT (BEAKER) (test code = 71665) No organisms seen BRONCHIAL CULTURE + GRAM [id number] 08:58:00* Test Item Value Reference Range Interpretation Comments CULTURE (BEAKER) (test code = 1095) No growth GRAM STAIN RESULT (BEAKER) (test code = 1123) 1+ WBCs GRAM STAIN RESULT (BEAKER) (test code = 32849) No organisms seen POCT-GLUCOSE [id number] 08:15:00* Test Item Value Reference Range Interpretation Comments POC-GLUCOSE METER (BEAKER) (test code = 1538) 117 mg/dL 70-110 H TESTED AT [facility] [address] [facility] [address] CBC W/PLT COUNT & AUTO [id number] 07:36:00* Test Item Value Reference Range Interpretation [...] comment: User comments: Slide comments: BLOOD GAS, [id number] 06:28:00* Test Item Value Reference Range Interpretation [...] (test code = 1819) 80.0 % POCT-GLUCOSE [id number] 06:21:00* Test Item Value Reference Range Interpretation Comments POC-GLUCOSE METER (BEAKER) (test code = 1538) 130 mg/dL 70-110 H TESTED AT [place] [id number] [facility] [address] RAD, CHEST, 1 VIEW, NON [id number] 05:21:00Reason for exam:->hypoxiaShould this be performed at [...] Avendaño Verified Date/Time: 06/06/2018 05:21:30 Reading Location: [address] Neuro Reading Room -GLUCOSE [id number] 05:10:00* Test Item Value Reference Range Interpretation Comments POC-GLUCOSE METER (BEAKER) (test code = 1538) 144 mg/dL 70-110 H TESTED AT [facility] [address] [facility] [address] POCT-GLUCOSE [id number] 04:17:00* Test Item Value Reference Range Interpretation Comments POC-GLUCOSE METER (BEAKER) (test code = 1538) 161 mg/dL 70-110 H TESTED AT [facility] [address] [facility] [address] [id number] 04:06:00* Test Item Value Reference Range Interpretation Comments PHOSPHORUS (BEAKER) (test code = 604) 3.8 mg/dL 2.3-4.7 Check Serum Phosphorus level 4 hours after IV phosphorus replacement or 8 hours after PO replacement completed.[id number] 04:06:00* Test Item Value Reference Range Interpretation Comments MAGNESIUM (BEAKER) (test code = 627) 2.5 mg/dL 1.6-2.6 Check Serum Phosphorus level 4 hours after IV phosphorus replacement or 8 hours after PO replacement completed.BASIC METABOLIC [id number] 04:06:00* Test Item Value Reference Range Interpretation [...] 8 hours after PO replacement completed.Specimen markedly [id number] 04:02:00 * Test Item Value Reference Range Interpretation Comments PARTIAL THROMBOPLASTIN TIME (BEAKER) (test code = 760) 44.7 seconds 22.5-36.0 H PROTHROMBIN TIME/[id number] 04:00:00* Test Item Value Reference Range Interpretation [...] pat ients with mechanical heart valves.BLOOD GAS, [id number] 03:38:00* Test Item Value Reference Range Interpretation [...] code = 1819) 70.0 % BASIC METABOLIC [id number] 03:34:00* Test Item Value Reference Range Interpretation [...] APPLICABLE FOR DIALYSIS PATIENTS. Specimen markedly ictericPOCT-GLUCOSE [id number] 03:19:00* Test Item Value Reference Range Interpretation Comments POC-GLUCOSE METER (BEAKER) (test code = 1538) 171 mg/dL 70-110 H TESTED AT [address] [address] POCT-GLUCOSE [id number] 02:34:00* Test Item Value Reference Range Interpretation Comments POC-GLUCOSE METER (BEAKER) (test code = 1538) 201 mg/dL 70-110 H TESTED AT [address] [address] POCT-GLUCOSE [id number] 01:17:00* Test Item Value Reference Range Interpretation Comments POC-GLUCOSE METER (BEAKER) (test code = 1538) 174 mg/dL 70-110 H TESTED AT [address] [address] [id number] 00:15:00* Test Item Value Reference Range Interpretation Comments MAGNESIUM (BEAKER) (test code = 627) 2.3 mg/dL 1.6-2.6 POCT-GLUCOSE [id number] 00:10:00* Test Item Value Reference Range Interpretation Comments POC-GLUCOSE METER (BEAKER) (test code = 1538) 143 mg/dL 70-110 H TESTED AT [address] [address] POCT-GLUCOSE [id number] 23:18:00* Test Item Value Reference Range Interpretation Comments POC-GLUCOSE METER (BEAKER) (test code = 1538) 145 mg/dL 70-110 H TESTED AT [address] [address] POCT-GLUCOSE [id number] 22:18:00* Test Item Value Reference Range Interpretation Comments POC-GLUCOSE METER (BEAKER) (test code = 1538) 186 mg/dL 70-110 H TESTED AT [address] [address] POCT-GLUCOSE [id number] 21:23:00* Test Item Value Reference Range Interpretation Comments POC-GLUCOSE METER (BEAKER) (test code = 1538) 220 mg/dL 70-110 H TESTED AT [address] [address] POCT-GLUCOSE [id number] 20:47:00* Test Item Value Reference Range Interpretation Comments POC-GLUCOSE METER (BEAKER) (test code = 1538) 248 mg/dL 70-110 H TESTED AT [address] [address] POCT-GLUCOSE [id number] 19:10:00* Test Item Value Reference Range Interpretation Comments POC-GLUCOSE METER (BEAKER) (test code = 1538) 236 mg/dL 70-110 H TESTED AT [address] [address] POCT-GLUCOSE [id number] 18:16:00* Test Item Value Reference Range Interpretation Comments POC-GLUCOSE METER (BEAKER) (test code = 1538) 275 mg/dL 70-110 H TESTED AT [address] [address] BLOOD GAS, [id number] 17:21:00* Test Item Value Reference Range Interpretation [...] (test code = 1819) 60.0 % POCT-GLUCOSE [id number] 17:12:00* Test Item Value Reference Range Interpretation Comments POC-GLUCOSE METER (BEAKER) (test code = 1538) 304 mg/dL 70-110 H Will Repeat Test/TESTED AT [address] [address] POCT-GLUCOSE [id number] 16:01:00* Test Item Value Reference Range Interpretation Comments POC-GLUCOSE METER (BEAKER) (test code = 1538) 302 mg/dL 70-110 H TESTED AT [address] [address] BLOOD GAS, [id number] 14:06:00* Test Item Value Reference Range Interpretation [...] (BEAKER) (test code = 1819) 70.0 % [id number] 13:25:00* Test Item Value Reference Range Interpretation Comments POTASSIUM (BEAKER) (test code = 379) 4.1 meq/L 3.5-5.1 Specimen slightly hemolyzed [id number] 13:25:00* Test Item Value Reference Range Interpretation Comments GLUCOSE RANDOM (BEAKER) (test code = 652) 346 mg/dL 70-105 H BASIC METABOLIC [id number] 13:18:00* Test Item Value Reference Range Interpretation [...] NOT APPLICABLE FOR DIALYSIS PATIENTS. Specimen markedly [id number] 13:17:00* Test Item Value Reference Range Interpretation Comments MAGNESIUM (BEAKER) (test code = 627) 2.4 mg/dL 1.6-2.6 Specimen slightly hemolyzed BASIC METABOLIC [id number] 13:17:00* Test Item Value Reference Range Interpretation [...] APPLICABLE FOR DIALYSIS PATIENTS. Specimen markedly ictericPOCT-GLUCOSE [id number] 11:46:00* Test Item Value Reference Range Interpretation Comments POC-GLUCOSE METER (BEAKER) (test code = 1538) 297 mg/dL 70-110 H TESTED AT [address] [address] RAD, CHEST, 1 VIEW, NON [id number] 11:28:00Reason for exam:->resp failureShould this be performed at the bedside?->YesFINAL REPORT AP chest HISTORY: Respiratory failure. COMPARISON: 06/04/2018. IMPRESSION: Supportive lines unchanged. Hypoinflation. Asymmetric interstitial opacities, left greater than right, increased from previous. No pneumothorax. Signed: Eric Andrade MDReport Verified Date/Time: 06/05/2018 11:28:49 Reading Location: [facility] Radiology Reading Room IRATORY PANEL [facility] 2018-06-05 09:47:00* Test Item Value Reference Range [...] decisions. This sample was tested at the [facility] Molecular Diagnostics Laboratory using the [employer] Film[employer] rray Respiratory Panel. It is FDA cleared and has been verified and approved by the [facility] Molecular Diagnostics Laboratory for clinical use on nasal swab specim ens. It is not FDA-cleared for use on bronchial wash/lavage samples. However, fo r this sample type, validation was performed and test characteristics were deter mined and approved, by [facility] laboratory for clinical use u nder the Clinical Laboratory Improvement Amendments (CLIA) of 1988 requirements. Therefore, FDA clearance is not required. This laboratory is CLIA-certified an d [employer] ([employer])-accredited to perform high complexity t esting.CBC W/PLT COUNT & AUTO [id number] 07:05:00* Test Item Value Reference Range Interpretation [...] quate Received comment: User comments: Slide comments: [id number] 06:05:00* Test Item Value Reference Range Interpretation Comments PROCALCITONIN (BEAKER) (test code = 3036) 2.30 ng/mL <0.05 H SEPSIS RISK (ng/mL)Low: 0.05-0.50Intermediate: 0.51-2.00High: > =2.01LACTIC ACID, [id number] 05:39:00* Test Item Value Reference Range Interpretation Comments LACTATE BLOOD ARTERIAL (2) (BEAKER) (test code = 2874) 1.3 mmol/L 0.5-2.2 Specimen slightly hemolyzed Specimen markedly ictericCALCIUM, [id number] 04:12:00* Test Item Value Reference Range Interpretation Comments CALCIUM IONIZED (BEAKER) (test code = 698) 0.98 mmol/L 1.12-1.27 L PH, BLOOD (BEAKER) (test code = 1810) 7.43 Check serum Ionized Calcium level after 4 hours after IV Calcium replacement. BLOOD GAS, [id number] 04:06:00* Test Item Value Reference Range Interpretation [...] (test code = 1819) 75.0 % PTH, [id number] 04:05:00* Test Item Value Reference Range Interpretation Comments PARATHYROID HORMONE INTACT (BEAKER) (test code = 577) 183.2 pg/mL 8.5-72.5 H [id number] 04:04:00* Test Item Value Reference Range Interpretation Comments PARTIAL THROMBOPLASTIN TIME (BEAKER) (test code = 760) 48.3 seconds 22.5-36.0 H PROTHROMBIN TIME/[id number] 04:03:00* Test Item Value Reference Range Interpretation [...] = 380) 90 U/L 29-20 0 POCT-GLUCOSE [id number] 00:47:00* Test Item Value Reference Range Interpretation Comments POC-GLUCOSE METER (BEAKER) (test code = 1538) 277 mg/dL 70-110 H TESTED AT [facility] [address] [facility] [address] CALCIUM, [id number] 00:37:00* Test Item Value Reference Range Interpretation Comments CALCIUM IONIZED (BEAKER) (test code = 698) 0.95 mmol/L 1.12-1.27 L PH, BLOOD (BEAKER) (test code = 1810) 7.44 Check serum Ionized Calcium level after 4 hours after IV Calcium replacement. [id number] 00:36:00* Test Item Value Reference Range Interpretation Comments POTASSIUM (BEAKER) (test code = 379) 3.9 meq/L 3.5-5.1 8 hours after PO replacement [id number] 20:35:00* Test Item Value Reference Range Interpretation Comments MAGNESIUM (BEAKER) (test code = 627) 2.3 mg/dL 1.6-2.6 BASIC METABOLIC [id number] 20:35:00* Test Item Value Reference Range Interpretation [...] FOR DIALYSIS PATIENTS. Specimen markedly ictericU/S, ABDOMINAL, [id number] 18:10:00Abdomen limited area? Add comment if clarification [...] Ortegaeport Verified Date/Time: 06/04/2018 18:10:46 Reading Location: [address] Ultrasound Reading Room -GLUCOSE METER 2018-06-04 17:48:00* Test Item Value Reference Range Interpretation Comments POC-GLUCOSE METER (BEAKER) (test code = 1538) 294 mg/dL 70-110 H TESTED AT [facility] [address] [place] [address] CALCIUM, [id number] 15:55:00* Test Item Value Reference Range Interpretation Comments CALCIUM IONIZED (BEAKER) (test code = 698) 0.98 mmol/L 1.12-1.27 L PH, BLOOD (BEAKER) (test code = 1810) 7.50 RAD, ABDOMEN/KUB, 1 VIEW [id number] 14:34:00Reason for exam:->Cortrak placementFINAL REPORT Abdomen. CLINICAL HISTORY: Corpak placement. Comparison study: None available. FINDINGS: A single supine view the abdomen demonstrates a feeding tube in place, the distal aspect coiled near the antrum with the tip projecting over the mid stomach. This film is insensitive for the detection of free air. Signed: Andrew Sloan MDReport Verified Date/Time: 06/04/2018 14:34:10 Reading Location: [address] Consult Reading Room C METABOLIC [id number] 14:26:00* Test Item Value Reference Range Interpretation [...] FOR DIALYSIS PATIENTS. Specimen markedly ictericLACTIC ACID, [id number] 14:09:00* Test Item Value Reference Range Interpretation Comments LACTATE BLOOD ARTERIAL (2) (BEAKER) (test code = 2874) 1.2 mmol/L 0.5-2.2 Specimen markedly ictericPOCT-GLUCOSE [id number] 13:35:00* Test Item Value Reference Range Interpretation Comments POC-GLUCOSE METER (BEAKER) (test code = 1538) 247 mg/dL 70-110 H TESTED AT [facility] [address] [facility] [address] [id number] 11:32:00* Test Item Value Reference Range Interpretation Comments MAGNESIUM (BEAKER) (test code = 627) 2.1 mg/dL 1.6-2.6 Specimen slightly hemolyzed BASIC METABOLIC [id number] 11:32:00* Test Item Value Reference Range Interpretation [...] FOR DIALYSIS PATIENTS. Specimen markedly ictericVANCOMYCIN LEVEL, [id number] 11:20:00* Test Item Value Reference Range Interpretation Comments VANCOMYCIN RANDOM (BEAKER) (test code = 523) 27.0 ug/mL Reference Range: No NormalsURINALYSIS W/ REFLEX URINE [id number] 11:15:00 * Test Item Value Reference Range [...] = 2795) RAD, CHEST, 1 VIEW, NON [id number] 11:01:00Reason for exam:->ETT advancement, L IJ CVC [...] Shields Verified Date/Time: 06/04/2018 11:01:19 Reading Location: [facility] Radiology Reading Room C METABOLIC [id number] 10:59:00* Test Item Value Reference Range Interpretation [...] NOT APPLICABLE FOR DIALYSIS PATIENTS. Specimen markedly [id number] 10:53:00* Test Item Value Reference Range Interpretation Comments AMYLASE (BEAKER) (test code = 349) 32 U/L 25-125 Specimen markedly [id number] 10:53:00* Test Item Value Reference Range Interpretation Comments LIPASE (BEAKER) (test code = 749) 27 U/L 8-78 Specimen markedly ictericBLOOD GAS, [id number] 10:51:00* Test Item Value Reference Range Interpretation [...] (test code = 368) 5.3 % 4.3-6.1 [id number] 09:15:00* Test Item Value Reference Range Interpretation Comments PROCALCITONIN (BEAKER) (test code = 3036) 2.96 ng/mL <0.05 H SEPSIS RISK (ng/mL)Low: 0.05-0.50Intermediate: 0.51-2.00High: > =2.01RAD, CHEST, 1 VIEW, NON [id number] 09:01:00Reason for exam:->ARDSFINAL REPORT TECHNIQUE: Frontal chest radiograph dated . CLINICAL HISTORY: ARDS COMPARISON STUDY: Chest radiograph dated 9 IMPRESSION:Life support tubes and lines are unchanged. There is stable atelect asis in the left lung base. No pleural effusion or pneumothorax. Cardiomediastin al silhouette is normal in size. No pulmonary edema. No fracture. Signed: Sb Don Verified Date/Time: 06/04/2018 09:01:21 Reading Location : [facility] Radiology Reading Room IC ACID, [id number] 08:49:00* Test Item Value Reference Range Interpretation Comments LACTATE BLOOD ARTERIAL (2) (BEAKER) (test code = 2874) 1.4 mmol/L 0.5-2.2 Specimen moderately ictericBLOOD GAS, [id number] 05:26:00* Test Item Value Reference Range Interpretation [...] code = 1819) 80.0 % COMPREHENSIVE METABOLIC [id number] 04:41:00* Test Item Value Reference Range Interpretation [...] FOR DIALYSIS PATIENTS. Specimen markedly ictericHEPATIC FUNCTION [id number] 04:41:00* Test Item Value Reference Range Interpretation [...] U/L 6-55 H Specimen markedly ictericLACTIC ACID, [id number] 04:32:00* Test Item Value Reference Range Interpretation Comments LACTATE BLOOD ARTERIAL (2) (BEAKER) (test code = 2874) 1.6 mmol/L 0.5-2.2 Specimen markedly [id number] 04:31:00* Test Item Value Reference Range Interpretation Comments FIBRINOGEN LEVEL (BEAKER) (test code = 658) 592 mg/dl 225-434 H PT/[id number] 04:31:00* Test Item Value Reference Range Interpretation [...] 2.5-3.5 for pat ients with mechanical heart valves.[id number] 04:31:00* Test Item Value Reference Range Interpretation Comments PARTIAL THROMBOPLASTIN TIME (BEAKER) (test code = 760) 41.5 seconds 22.5-36.0 H PROTHROMBIN TIME/[id number] 04:30:00* Test Item Value Reference Range Interpretation [...] mechanical heart valves.CBC W/PLT COUNT & AUTO [id number] 04:15:00* Test Item Value Reference Range Interpretation [...] = 2801) 3 % 0-1 H POCT-GLUCOSE [id number] 23:44:00* Test Item Value Reference Range Interpretation Comments POC-GLUCOSE METER (BEAKER) (test code = 1538) 195 mg/dL 70-110 H TESTED AT [facility] [address] [facility] [address] RAD, CHEST, 1 VIEW, NON [id number] 21:14:00Reason for exam:->respiratory failure/hypoxiaShould this be performed [...] MDReport Verified Date/Time: 09/2018 21:14:49 Reading Location: [address] Consult Reading Room Electro nically signed by: SADIQ HAINES M.D. on 06/03/2018 09:14 PM FERRITIN 2018-06-03 21:11:00* Test Item Value Reference Range Interpretation Comments FERRITIN (BEAKER) (test code = 361) 1898 ng/mL 5-275 H HEPATITIS B SURFACE [id number] 20:52:00* Test Item Value Reference Range Interpretation Comments HEPATITIS B SURFACE ANTIBODY (BEAKER) (test code = 647) < mIU/mL <8.0 HEPATITIS B SURFACE [id number] 20:51:00* Test Item Value Reference Range Interpretation Comments HEPATITIS B SURFACE ANTIGEN (2) (BEAKER) (test code = 2585) Nonreactive Nonreactive HEPATITIS C [id number] 20:51:00* Test Item Value Reference Range Interpretation Comments HEPATITIS C ANTIBODY (BEAKER) (test code = 367) Nonreactive Nonrea ctive HEPATITIS B CORE ANTIBODY, [id number] 20:51:00* Test Item Value Reference Range Interpretation Comments HEPATITIS B CORE TOTAL ANTIBODY (BEAKER) (test code = 497) N onreactive Nonreactive [id number] 20:48:00* Test Item Value Reference Range Interpretation Comments MAGNESIUM (BEAKER) (test code = 627) 1.9 mg/dL 1.6-2.6 BASIC METABOLIC [id number] 20:48:00* Test Item Value Reference Range Interpretation [...] DIALYSIS PATIENTS. Specimen markedly ictericHEPATITIS A ANTIBODY, [id number] 20:45:00* Test Item Value Reference Range Interpretation Comments HEPATITIS A IGG ANTIBODY (BEAKER) (test code = 2797) Reactive N onreactive A ALPHA FETOPROTEIN (AFP), TUMOR [id number] 20:44:00* Test Item Value Reference Range Interpretation Comments ALPHA-FETOPROTEIN (BEAKER) (test code = 1094) 6.3 ng/mL <10.0 HEPATITIS B CORE ANTIBODY, [id number] 20:44:00* Test Item Value Reference Range Interpretation Comments HEPATITIS B CORE IGM ANTIBODY (BEAKER) (test code = 645) Non reactive Nonreactive HEPATITIS A ANTIBODY, [id number] 20:44:00* Test Item Value Reference Range Interpretation [...] 2590) 40 % 20-5 5 BLOOD GAS, [id number] 20:25:00* Test Item Value Reference Range Interpretation [...] 1819) 100.0 % SPUTUM CULTURE + GRAM [id number] 19:38:00* Test Item Value Reference Range Interpretation Comments CULTURE (BEAKER) (test code = 1095) <1+ Normal respiratory chase pr esent GRAM STAIN RESULT (BEAKER) (test code = 1123) 1+ White blood cells seen GRAM STAIN RESULT (BEAKER) (test code = 81274) 0-5 epithelial cells GRAM STAIN RESULT (BEAKER) (test code = 66451) <1+ gram negative ro ds URINALYSIS W/ REFLEX URINE [id number] 18:20:00* Test Item Value Reference Range Interpretation [...] SOURCE(BEAKER) (test code = 2795) BLOOD GAS, [id number] 17:17:00* Test Item Value Reference Range Interpretation [...] (BEAKER) (test code = 1819) 60.0 % FSNTA-5-[id number] 16:17:00* Test Item Value Reference Range Interpretation Comments ALPHA-1 ANTITRYPSIN (BEAKER) (test code = 502) > mg/dL 90.00-2 00.00 H [id number] 14:26:00* Test Item Value Reference Range Interpretation Comments MAGNESIUM (BEAKER) (test code = 627) 2.0 mg/dL 1.6-2.6 BASIC METABOLIC [id number] 14:26:00* Test Item Value Reference Range Interpretation [...] FOR DIALYSIS PATIENTS. Specimen markedly ictericBLOOD GAS, [id number] 13:25:00* Test Item Value Reference Range Interpretation [...] code = 1819) 40.0 % VANCOMYCIN LEVEL, [id number] 11:06:00* Test Item Value Reference Range Interpretation Comments VANCOMYCIN TROUGH (BEAKER) (test code = 522) 45.6 ug/mL 10.0-20.0 HH BLOOD GAS, [id number] 09:54:00* Test Item Value Reference Range Interpretation [...] 40.0 % RAD, CHEST, 1 VIEW, NON [id number] 05:04:00Reason for exam:->ARDSFINAL REPORT Chest one view. [...] MDReport Verified Date/Time: 06/03/2018 05:04:55 Reading Location: [facility] B1 C013Y CT Body Reading Room REHENSIVE [...] 700) 405 pg/mL 0-100 H LACTIC ACID, [id number] 04:01:00* Test Item Value Reference Range Interpretation Comments LACTATE BLOOD ARTERIAL (2) (BEAKER) (test code = 2874) 0.7 mmol/L 0.5-2.2 Specimen moderately ictericCBC W/PLT COUNT & AUTO [id number] 03:57:00* Test Item Value Reference Range Interpretation [...] code = 2801) 3 % 0-1 H [id number] 03:48:00* Test Item Value Reference Range Interpretation Comments FIBRINOGEN LEVEL (BEAKER) (test code = 658) 644 mg/dl 225-434 H PT/[id number] 03:48:00* Test Item Value Reference Range Interpretation [...] pat ients with mechanical heart valves.BLOOD GAS, [id number] 03:36:00* Test Item Value Reference Range Interpretation [...] (test code = 1819) 40.0 % POCT-GLUCOSE [id number] 02:21:00* Test Item Value Reference Range Interpretation Comments POC-GLUCOSE METER (BEAKER) (test code = 1538) 225 mg/dL 70-110 H TESTED AT [facility] [address] [facility] [address] [id number] 21:48:00* Test Item Value Reference Range Interpretation Comments MAGNESIUM (BEAKER) (test code = 627) 2.2 mg/dL 1.6-2.6 BASIC METABOLIC [id number] 21:48:00* Test Item Value Reference Range Interpretation [...] NOT APPLICABLE FOR DIALYSIS PATIENTS. Specimen markedly [id number] 17:35:00* Test Item Value Reference Range Interpretation Comments MAGNESIUM (BEAKER) (test code = 627) 2.8 mg/dL 1.6-2.6 H Specimen moderately hemolyzed [id number] 17:35:00* Test Item Value Reference Range Interpretation Comments POTASSIUM (BEAKER) (test code = 379) 4.5 meq/L 3.5-5.1 Specimen moderately hemolyzed [id number] 15:15:00* Test Item Value Reference Range Interpretation Comments PROCALCITONIN (BEAKER) (test code = 3036) 1.58 ng/mL <0.05 H SEPSIS RISK (ng/mL)Low: 0.05-0.50Intermediate: 0.51-2.00High: > =2.01B-TYPE NATRIURETIC FACTOR (BNP)2018-06-02 14:09:00* Test Item Value Reference Range Interpretation Comments B-TYPE NATRIURETIC PEPTIDE (BEAKER) (test code = 700) 286 pg/mL 0-100 H [id number] 13:51:00* Test Item Value Reference Range Interpretation Comments PARTIAL THROMBOPLASTIN TIME (BEAKER) (test code = 760) 42.9 seconds 22.5-36.0 H PROTHROMBIN TIME/[id number] 13:50:00* Test Item Value Reference Range Interpretation [...] pat ients with mechanical heart valves.BLOOD GAS, [id number] 13:33:00* Test Item Value Reference Range Interpretation [...] (test code = 1819) 40.0 % GLUCOSE-STAT [id number] 13:33:00* Test Item Value Reference Range Interpretation Comments GLUCOSE RANDOM (BEAKER) (test code = 652) 174 mg/dL 70-110 H TSH/FREE T4 IF [id number] 07:15:00* Test Item Value Reference Range Interpretation Comments THYROID STIMULATING HORMONE (BEAKER) (test code = 772) 1.76 uIU/mL 0.35-4.94 COMPREHENSIVE METABOLIC [id number] 03:52:00* Test Item Value Reference Range Interpretation [...] Specimen markedly ictericRAD, CHEST, 1 VIEW, NON [id number] 03:35:00Reason for exam:->ARDSFINAL REPORT Chest one view. [...] Ceballos Verified Date/Time: 06/02/2018 03:35:13 Reading Location: [address] Body Reading Room /[id number] 03:12:00* Test Item Value Reference Range Interpretation [...] 2.5-3.5 for pat ients with mechanical heart valves.SBCPXZQJSM2881-16-28 03:03:00* Test Item Value Reference Range Interpretation Comments FIBRINOGEN LEVEL (BEAKER) (test code = 658) 695 mg/dl 225-434 H LACTIC ACID, [id number] 03:02:00* Test Item Value Reference Range Interpretation Comments LACTATE BLOOD ARTERIAL (2) (BEAKER) (test code = 2874) 0.7 mmol/L 0.5-2.2 Specimen markedly ictericCBC W/PLT COUNT & AUTO [id number] 02:53:00 * Test Item Value Reference Range [...] 2801) 2 % 0-1 H BLOOD GAS, [id number] 02:53:00* Test Item Value Reference Range Interpretation [...] code = 1819) 60.0 % BLOOD GAS, [id number] 00:24:00* Test Item Value Reference Range Interpretation [...] code = 1819) 60.0 % BASIC METABOLIC [id number] 17:38:00* Test Item Value Reference Range Interpretation [...] FOR DIALYSIS PATIENTS. Specimen markedly ictericBLOOD GAS, [id number] 17:10:00* Test Item Value Reference Range Interpretation [...] (test code = 1819) 60.0 % Blood [id number] 17:08:00* Test Item Value Reference Range Interpretation Comments Blood Culture (test code = 71873899) NO GROWTH AFTER 5 DAYS, FINAL REPORT [facility] Hospital[facility], ABDOMINAL, [id number] 15:11:00Abdomen limited area? Add comment if clarification [...] MDReport Verified Date/Time: 06/01/2018 15:11:50 Reading Location: [facility] C013X Ortho Consult Reading Room A GLUTAMYL TRANSFERASE (GGT) 2018-06-01 14:41:00* Test Item Value Reference Range Interpretation Comments GAMMA GLUTAMYL TRANSFERASE (BEAKER) (test code = 364) 136 U/L 9-64 H Specimen markedly ictericBLOOD GAS, [id number] 14:18:00* Test Item Value Reference Range Interpretation [...] = 1819) 60.0 % CT, CHEST, WITHOUT [id number] 13:38:00FINAL REPORT TECHNIQUE: CT of the chest, [...] rt Verified Date/Time: 06/01/2018 13:38:09 Reading Location: [facility] B1 C013X Ortho Consult Reading Room Electronically signed by: KYLE RAE MD on 07/2018 01:[address], [id number] 13:38:00FINAL REPORT TECHNIQUE: CT of the chest, [...] rt Verified Date/Time: 06/01/2018 13:38:09 Reading Location: [facility] C013X [facility] Consult Reading Room Electronically signed by: KYLE RAE MD on 07/2018 01:[address], BRAIN, WITHOUT [id number] 13:10:00FINAL REPORT CT, BRAIN, WITHOUT CONTRAST CLINICAL [...] Verified Date/Time: 06/01/2018 13:10:29 Reading Lo cation: [facility] B1 C013V Neuro Reading Room D GAS, [id number] 11:45:00* Test Item Value Reference Range Interpretation [...] 1819) 80.0 % URINALYSIS W/ REFLEX URINE [id number] 11:13:00* Test Item Value Reference Range Interpretation [...] 1414) 16.4 % 0.0-5.0 H COMPREHENSIVE METABOLIC [id number] 10:13:00* Test Item Value Reference Range Interpretation [...] 248 U/L 125-2 20 H HEPATIC FUNCTION [id number] 09:21:00* Test Item Value Reference Range Interpretation [...] = 347) 32 U/L 6-55 Specimen markedly sftqgwaKBBIKGEGNG0423-97-55 09:20:00* Test Item Value Reference Range Interpretation Comments FIBRINOGEN LEVEL (BEAKER) (test code = 658) 729 mg/dl 225-434 H PT/[id number] 09:20:00* Test Item Value Reference Range Interpretation [...] 2.5-3.5 for pat ients with mechanical heart valves.[id number] 09:20:00* Test Item Value Reference Range Interpretation Comments PHOSPHORUS (BEAKER) (test code = 604) 3.9 mg/dL 2.3-4.7 [id number] 09:20:00* Test Item Value Reference Range Interpretation Comments MAGNESIUM (BEAKER) (test code = 627) 2.3 mg/dL 1.6-2.6 LACTIC ACID, [id number] 09:17:00* Test Item Value Reference Range Interpretation Comments LACTATE BLOOD ARTERIAL (2) (BEAKER) (test code = 2874) 0.7 mmol/L 0.5-2.2 Specimen markedly ictericCBC W/PLT COUNT & AUTO [id number] 09:13:00 * Test Item Value Reference Range [...] 2801) 3 % 0-1 H OXYGEN SATURATION, [id number] 09:07:00* Test Item Value Reference Range Interpretation Comments O2 SATURATION (MEASURED) (BEAKER) (test code = 1455) 80.9 % CALCIUM, [id number] 09:06:00* Test Item Value Reference Range Interpretation Comments CALCIUM IONIZED (BEAKER) (test code = 698) 1.01 mmol/L 1.12-1.27 L PH, BLOOD (BEAKER) (test code = 1810) 7.40 BLOOD GAS, [id number] 09:05:00* Test Item Value Reference Range Interpretation [...] code = 1819) 100.0 % SODIUM NA-STAT [id number] 09:05:00* Test Item Value Reference Range Interpretation Comments SODIUM (BEAKER) (test code = 381) 127 meq/L 135-148 L GLUCOSE-STAT [id number] 09:05:00* Test Item Value Reference Range Interpretation Comments GLUCOSE RANDOM (BEAKER) (test code = 652) 181 mg/dL 70-110 H HGB/HCT (H&H) - STAT [id number] 09:05:00* Test Item Value Reference Range Interpretation Comments HEMOGLOBIN (BEAKER) (test code = 410) 10.4 g/dL 13.0-16.8 L HEMATOCRIT (BEAKER) (test code = 411) 31.0 % 40.0-50.0 L POTASSIUM-STAT [id number] 09:02:00* Test Item Value Reference Range Interpretation Comments POTASSIUM (BEAKER) (test code = 379) 4.6 meq/L 3.6-5.5 RAD, CHEST, 1 VIEW, NON [id number] 08:51:00Reason for exam:->ARFShould this be performed at [...] obscured.Additional findings: None. Signed: JR Mckeon Robert [facility] Verified Date/Time: 06/01/2018 08:51:32 Reading Location: [facility] C0[facility] Neuro Reading Room D GAS, [id number] 08:32:00* Test Item Value Reference Range Interpretation [...] code = 1819) 100.0 % SODIUM NA-STAT [id number] 08:32:00* Test Item Value Reference Range Interpretation Comments SODIUM (BEAKER) (test code = 381) 127 meq/L 135-148 L GLUCOSE-STAT [id number] 08:32:00* Test Item Value Reference Range Interpretation Comments GLUCOSE RANDOM (BEAKER) (test code = 652) 171 mg/dL 70-110 H HGB/HCT (H&H) - STAT [id number] 08:32:00* Test Item Value Reference Range Interpretation Comments HEMOGLOBIN (BEAKER) (test code = 410) 10.5 g/dL 13.0-16.8 L HEMATOCRIT (BEAKER) (test code = 411) 31.0 % 40.0-50.0 L CALCIUM, [id number] 08:32:00* Test Item Value Reference Range Interpretation Comments CALCIUM IONIZED (BEAKER) (test code = 698) 1.00 mmol/L 1.12-1.27 L PH, BLOOD (BEAKER) (test code = 1810) 7.43 POTASSIUM-STAT [id number] 08:30:00* Test Item Value Reference Range Interpretation Comments POTASSIUM (BEAKER) (test code = 379) 5.4 meq/L 3.6-5.5 Sodium [id number] 03:33:00* Test Item Value Reference Range Interpretation Comments Sodium Level (test code = 2951-2) 130 136-145 L [facility] HospitalPotassium [id number] 03:33:00* Test Item Value Reference Range Interpretation Comments Potassium Level (test code = 2823-3) 5.1 3.5-5.1 SPECIMEN SLIGHTLY ICTERICCHI [facility] HospitalChloride Level 2018-06-01 03:33:00* Test Item Value Reference Range Interpretation Comments Chloride Level (test code = 2075-0) 93 98-107 L [facility] HospitalCarbon Dioxide Fmxxc0948-11-31 03:33:00* Test Item Value Reference Range Interpretation Comments Carbon Dioxide Level (test code = 2028-9) 25 22-29 [facility] HospitalAnion [id number] 03:33:00* Test Item Value Reference Range Interpretation Comments Anion Gap (test code = 47263-1) 17.1 8-16 H [facility] HospitalBlood Urea Dkrmveuj3565-36-32 03:33:00* Test Item Value Reference Range Interpretation Comments Blood Urea Nitrogen (test code = 3094-0) 25 7-26 VERIFIED PREVIOUS RESULTSMethodist McKinney HospitalCreatinine 2018-06-01 03:33:00* Test Item Value Reference Range Interpretation Comments Creatinine (test code = 2160-0) 1.47 0.72-1.25 H [facility] HospitalBUN/Creatinine Lankl3047-89-70 03:33:00* Test Item Value Reference Range Interpretation Comments BUN/Creatinine Ratio (test code = 3097-3) 17 6-25 [facility] HospitalEstimat Glomerular Filtration Rate 2018-06-01 03:33:00* Test Item Value Reference Range Interpretation Comments Estimat Glomerular Filtration Rate (test code = 060179115) 53 >60 L Ranges were taken from the National Kidney Disease Education Program and the [facility] literature.Reference ranges:60 or greater: Roycpt73-82 ( for 3 consecutive months): Chronic kidney disease 15 or less: Kidney failureMethodist McKinney HospitalGlucose Gsynd3947-94-88 03:33:00* Test Item Value Reference Range Interpretation Comments Glucose Level (test code = HZY7444) 160 74-118 H [facility] HospitalCalcium Klktt5465-27-56 03:33:00* Test Item Value Reference Range Interpretation Comments Calcium Level (test code = 54188-5) 8.1 8.4-10.2 L [facility] HospitalMagnesium Utune4258-87-45 03:33:00* Test Item Value Reference Range Interpretation Comments Magnesium Level (test code = 03034-2) 2.3 1.3-2.1 H [facility] HospitalMagnesium Mzfao3502-08-52 03:33:00* Test Item Value Reference Range Interpretation Comments Magnesium Level (test code = 45230-6) 2.3 1.3-2.1 H [facility] HospitalWhite Blood Bmpnd6913-89-31 03:21:00* Test Item Value Reference Range Interpretation Comments White Blood Count (test code = 6690-2) 20.59 4.8-10.8 H [facility] HospitalRed Blood Vmgvx6595-18-95 03:21:00* Test Item Value Reference Range Interpretation Comments Red Blood Count (test code = 789-8) 2.65 4.3-5.7 L [facility] HospitalHemoglobin2019-04-06 03:21:00* Test Item Value Reference Range Interpretation Comments Hemoglobin (test code = 19966-2) 9.6 14.0-18.0 L [facility] HospitalHematocrit2019-04-06 03:21:00* Test Item Value Reference Range Interpretation Comments Hematocrit (test code = 4544-3) 29.1 38.2-49.6 L [facility] HospitalMean Corpuscular Tsgvwn5422-99-20 03:21:00* Test Item Value Reference Range Interpretation Comments Mean Corpuscular Volume (test code = 787-2) 109.8 81-99 H [facility] HospitalMean Corpuscular Adoyjfamlu7645-47-97 03:21:00* Test Item Value Reference Range Interpretation Comments Mean Corpuscular Hemoglobin (test code = 785-6) 36.2 28-32 H [facility] HospitalMean Corpuscular Hemoglobin Concent 2018-06-01 03:21:00* Test Item Value Reference Range Interpretation Comments Mean Corpuscular Hemoglobin Concent (test code = 786-4) 33.0 31-35 [facility] HospitalRed Cell Distribution Kxgue4707-91-91 03:21:00* Test Item Value Reference Range Interpretation Comments Red Cell Distribution Width (test code = 08599-3) 13.3 11.7 -14.4 [facility] HospitalPlatelet Jdwtl8838-50-73 03:21:00* Test Item Value Reference Range Interpretation Comments Platelet Count (test code = 777-3) 321 140-360 [facility] HospitalNeutrophils (%) (Auto)2018-06-01 03:21:00 * Test Item Value Reference Range Interpretation Comments Neutrophils (%) (Auto) (test code = 31429-3) 91.1 38.7-80.0 H [facility] HospitalLymphocytes (%) (Auto)2018-06-01 03:21:00 * Test Item Value Reference Range Interpretation Comments Lymphocytes (%) (Auto) (test code = 736-9) 3.4 18.0-39.1 L [facility] HospitalMonocytes (%) (Auto)2018-06-01 03:21:00* Test Item Value Reference Range Interpretation Comments Monocytes (%) (Auto) (test code = 5905-5) 2.9 4.4-11.3 L [facility] HospitalEosinophils (%) (Auto)2018-06-01 03:21:00 * Test Item Value Reference Range Interpretation Comments Eosinophils (%) (Auto) (test code = 713-8) 0.0 0.0-6.0 [facility] HospitalBasophils (%) (Auto)2018-06-01 03:21:00* Test Item Value Reference Range Interpretation Comments Basophils (%) (Auto) (test code = 706-2) 0.2 0.0-1.0 [facility] HospitalIM GRANULOCYTES %2018-06-01 03:21:00* Test Item Value Reference Range Interpretation Comments IM GRANULOCYTES % (test code = IM GRANULOCYTES %) 2.4 0.0- 1.0 H [facility] HospitalNeutrophils # (Auto)2018-06-01 03:21:00* Test Item Value Reference Range Interpretation Comments Neutrophils # (Auto) (test code = 751-8) 18.8 2.1-6.9 H [facility] HospitalLymphocytes # (Auto)2018-06-01 03:21:00* Test Item Value Reference Range Interpretation Comments Lymphocytes # (Auto) (test code = 12678-2) 0.7 1.0-3.2 L [facility] HospitalMonocytes # (Auto)2018-06-01 03:21:00* Test Item Value Reference Range Interpretation Comments Monocytes # (Auto) (test code = 742-7) 0.6 0.2-0.8 [facility] HospitalEosinophils # (Auto)2018-06-01 03:21:00* Test Item Value Reference Range Interpretation Comments Eosinophils # (Auto) (test code = 711-2) 0.0 0.0-0.4 [facility] HospitalBasophils # (Auto)2018-06-01 03:21:00* Test Item Value Reference Range Interpretation Comments Basophils # (Auto) (test code = 704-7) 0.1 0.0-0.1 [facility] HospitalAbsolute Immature Granulocyte (auto 2018-06-01 03:21:00* Test Item Value Reference Range Interpretation Comments Absolute Immature Granulocyte (auto (doug t code = Absolute Immature Granulocyte (auto) 0.49 0-0.1 H [facility] HospitalArterial Blood [id number] 00:17:00* Test Item Value Reference Range Interpretation Comments Arterial Blood pH (test code = 2744-1) 7.34 7.31-7.41 [facility] HospitalArterial Blood Partial Pressure CO2 2018-06-01 00:17:00* Test Item Value Reference Range Interpretation Comments Arterial Blood Partial Pressure CO2 (test code = 2018-8) 49 41-51 [facility] HospitalArterial Blood Partial Pressure O2 2018-06-01 00:17:00* Test Item Value Reference Range Interpretation Comments Arterial Blood Partial Pressure O2 (test code = 2018-8) 77 80-105 L [facility] HospitalArterial Blood [id number] 00:17:00* Test Item Value Reference Range Interpretation Comments Arterial Blood HCO3 (test code = 1960-4) 27 23-28 [facility] HospitalArterial Blood Base Zrfbwo7297-57-42 00:17:00* Test Item Value Reference Range Interpretation Comments Arterial Blood Base Excess (test code = 1925-7) 1.0 -2-3 [facility] HospitalArterial Blood Oxygen Saturation 2018-06-01 00:17:00* Test Item Value Reference Range Interpretation Comments Arterial Blood Oxygen Saturation (test code = 2708-6) 94.0 95-98 L [facility] HospitalFiO22019-04-06 00:17:00* Test Item Value Reference Range Interpretation Comments FiO2 (test code = FiO2) 85 PT. ON PRVC 16, 440 +12 85[facility] HospitalArterial Blood [id number] 00:17:00* Test Item Value Reference Range Interpretation Comments Arterial Blood pH (test code = 2744-1) 7.34 7.31-7.41 [facility] HospitalArterial Blood Partial Pressure CO2 2018-06-01 00:17:00* Test Item Value Reference Range Interpretation Comments Arterial Blood Partial Pressure CO2 (test code = 2018-09) 49 41-51 [facility] HospitalArterial Blood Partial Pressure O2 2018-06-01 00:17:00* Test Item Value Reference Range Interpretation Comments Arterial Blood Partial Pressure O2 (test code = 2018-09) 77 80-105 L [facility] HospitalArterial Blood [id number] 00:17:00* Test Item Value Reference Range Interpretation Comments Arterial Blood HCO3 (test code = 1960-4) 27 23-28 [facility] HospitalArterial Blood Base Rzdvgc1583-66-40 00:17:00* Test Item Value Reference Range Interpretation Comments Arterial Blood Base Excess (test code = 1925-7) 1.0 -2-3 [facility] HospitalArterial Blood Oxygen Saturation 2018-06-01 00:17:00* Test Item Value Reference Range Interpretation Comments Arterial Blood Oxygen Saturation (test code = 2708-6) 94.0 95-98 L [facility] HospitalFiO22019-04-06 00:17:00* Test Item Value Reference Range Interpretation Comments FiO2 (test code = FiO2) 85 PT. ON PRVC 16, 440 +12 85[facility] HospitalCT CHEST W 2018-05-31 15:20:00 [facility] [address] [place] [address] Patient Name: INDRA GALVAN MR #: [id number] : 1980 Age/Sex: 37/M Req #: [id number] Adm Physician: KIET DUMAS MD Ordered by: DAVID HORTON Report #: [id number] Location: ICU Room/Bed: ICU [facility] Procedure: 0405-[address]/CT CHEST W Exam Date: 05/31/18 Exam Time: 1430 REPORT STATUS: Signed CT chest pulmonary embolism protocol CPT code: 05668 INDICATION: Intubated, ev aluate for pulmonary embolus; [...] 1537 COPY TO: DAVID HORTON Hepatitis Be Mforbszb3598-08-77 08:40:00* Test Item Value Reference Range Interpretation Comments Hepatitis Be Antibody (test code = 20428-8) Negative Negative Performed at: - [facility] [id number] Pumper Hand: Esdras Lemon MD, Phone: [phone] McKinney HospitalHepatitis Be Inckwmbe6588-77-57 08:40:00* Test Item Value Reference Range Interpretation Comments Hepatitis Be Antibody (test code = 93945-6) Negative Negative Performed at: [address] [id number] Pumper Hand: Esdras Lemon MD, Phone: [phone] McKinney HospitalHIV-1 RNA, Quantitative copies/[id number] 08:39:00* Test Item Value Reference Range Interpretation Comments HIV-1 RNA, Quantitative copies/mL (test code = 31789-8) <20 . HIV-1 RNA not detectedThe reportable range for this assay is 20 to 10,000,000cop ies HIV-1 RNA/mL.[facility] HospitalHIV-1 RNA, Quantitative copies/zQ3953-47-36 08:39:00* Test Item Value Reference Range Interpretation Comments HIV-1 RNA, Quantitative copies/mL (test code = 36401-7) <20 . HIV-1 RNA not detectedThe reportable range for this assay is 20 to 10,000,000cop ies HIV-1 RNA/mL.[facility] HospitalDifferential Total Cells Btnmubv6932-73-26 07:07:00* Test Item Value Reference Range Interpretation Comments Differential Total Cells Counted (test code = Differen tial Total Cells Counted) 100 [facility] HospitalNeutrophils % (Manual)2018-05-31 07:07:00 * Test Item Value Reference Range Interpretation Comments Neutrophils % (Manual) (test code = 05803-0) 84 40-74 H [facility] HospitalLymphocytes % (Manual)2018-05-31 07:07:00 * Test Item Value Reference Range Interpretation Comments Lymphocytes % (Manual) (test code = 737-7) 3 19-48 L [facility] HospitalMonocytes % (Manual)2018-05-31 07:07:00* Test Item Value Reference Range Interpretation Comments Monocytes % (Manual) (test code = 744-3) 10 3.4-9.0 H [facility] HospitalEosinophils % (Manual)2018-05-31 07:07:00 * Test Item Value Reference Range Interpretation Comments Eosinophils % (Manual) (test code = 714-6) 3 0-7 [facility] HospitalPlatelet Ubxiwjqh2175-46-80 07:07:00* Test Item Value Reference Range Interpretation Comments Platelet Estimate (test code = 48275-0) ADEQUATE [facility] HospitalPlatelet Morphology Waroeyh5720-60-65 07:07:00* Test Item Value Reference Range Interpretation Comments Platelet Morphology Comment (test code = 20028-5) NORMAL [facility] HospitalHypochromasia2019-04-05 07:07:00* Test Item Value Reference Range Interpretation Comments Hypochromasia (test code = 728-6) SLIGHT [facility] HospitalAnisocytosis2019-04-05 07:07:00* Test Item Value Reference Range Interpretation Comments Anisocytosis (test code = 702-1) MODERATE [facility] HospitalMacrocytosis2019-04-05 07:07:00* Test Item Value Reference Range Interpretation Comments Macrocytosis (test code = 738-5) MODERATE [facility] HospitalRed Cell Morphology Dpbutwh1438-05-59 07:07:00* Test Item Value Reference Range Interpretation Comments Red Cell Morphology Comment (test code = 6742-1) ABNORMAL [facility] HospitalDifferential Total Cells Counted 2018-05-31 07:07:00* Test Item Value Reference Range Interpretation Comments Differential Total Cells Counted (test code = Differgibran tial Total Cells Counted) 100 [facility] HospitalNeutrophils % (Manual)2018-05-31 07:07:00 * Test Item Value Reference Range Interpretation Comments Neutrophils % (Manual) (test code = 52302-1) 84 40-74 H [facility] HospitalLymphocytes % (Manual)2018-05-31 07:07:00 * Test Item Value Reference Range Interpretation Comments Lymphocytes % (Manual) (test code = 737-7) 3 19-48 L [facility] Hospital[facility] % (Manual)2018-05-31 07:07:00* Test Item Value Reference Range Interpretation Comments Monocytes % (Manual) (test code = 744-3) 10 3.4-9.0 H [facility] HospitalEosinophils % (Manual)2018-05-31 07:07:00 * Test Item Value Reference Range Interpretation Comments Eosinophils % (Manual) (test code = 714-6) 3 0-7 [facility] HospitalPlatelet Xzoitkdp8355-31-00 07:07:00* Test Item Value Reference Range Interpretation Comments Platelet Estimate (test code = 22752-0) ADEQUATE [facility] HospitalPlatelet Morphology Axsoanq7956-69-48 07:07:00* Test Item Value Reference Range Interpretation Comments Platelet Morphology Comment (test code = 21378-3) NORMAL [facility] HospitalHypochromasia2019-04-05 07:07:00* Test Item Value Reference Range Interpretation Comments Hypochromasia (test code = 728-6) SLIGHT [facility] HospitalAnisocytosis2019-04-05 07:07:00* Test Item Value Reference Range Interpretation Comments Anisocytosis (test code = 702-1) MODERATE [facility] HospitalMacrocytosis2019-04-05 07:07:00* Test Item Value Reference Range Interpretation Comments Macrocytosis (test code = 738-5) MODERATE [facility] HospitalRed Cell Morphology Syxxztr9869-41-51 07:07:00* Test Item Value Reference Range Interpretation Comments Red Cell Morphology Comment (test code = 6742-1) ABNORMAL [facility] HospitalTotal Owjjqjdds3464-00-65 06:43:00* Test Item Value Reference Range Interpretation Comments Total Bilirubin (test code = 1975-2) 17.5 0.2-1.2 H [facility] HospitalAspartate Amino Transf (AST/SGOT) 2018-05-31 06:43:00* Test Item Value Reference Range Interpretation Comments Aspartate Amino Transf (AST/SGOT) (test code = Aspartate Amino Transf (AST/SGOT)) 97 5-34 H [facility] HospitalAlanine Aminotransferase (ALT/SGPT) 2018-05-31 06:43:00* Test Item Value Reference Range Interpretation Comments Alanine Aminotransferase (ALT/SGPT) (test code = 1742-6) 28 0-55 [facility] HospitalTotal Fwkqdbq7352-60-84 06:43:00* Test Item Value Reference Range Interpretation Comments Total Protein (test code = 2885-2) 6.1 6.5-8.1 L [facility] HospitalAlbumin2019-04-05 06:43:00* Test Item Value Reference Range Interpretation Comments Albumin (test code = 1751-7) 1.7 3.5-5.0 L [facility] HospitalGlobulin2019-04-05 06:43:00* Test Item Value Reference Range Interpretation Comments Globulin (test code = 95268-0) 4.4 2.3-3.5 H [facility] HospitalAlbumin/Globulin Posyp5145-66-77 06:43:00 * Test Item Value Reference Range Interpretation Comments Albumin/Globulin Ratio (test code = 1759-0) 0.4 0.8-2.0 L [facility] HospitalAlkaline Ypcmftbveko2685-78-12 06:43:00* Test Item Value Reference Range Interpretation Comments Alkaline Phosphatase (test code = 6768-6) 149 40-150 [facility] HospitalCHEST SINGLE (PORTABLE)2018-05-31 05:31:00 [facility] [address] [place] [address] Patient Name: INDRA GALVAN MR #: [id number] : 1980 Age/Sex: 37/M Req #: [id number] Adm Physician: KIET DUMAS MD Ordered by: MANDEEP MARIE MD Report #: [id number] Location: ICU Room/Bed: ICU [facility] Procedure: 0405-000 3 DX/CHEST SINGLE (PORTABLE) Exam [...] 05/31/18531 COPY TO: MANDEEP MARIE MD Urine Txbjiqkxvb0197-44-79 01:57:00* Test Item Value Reference Range Interpretation Comments Urine Osmolality (test code = 2695-5) 353 . 24 hr : 300 - 900 Random: 50 - 1400 After 12hr fluid restriction: >850Performed at: HD - [facility] [address] [id number] Director: Alli Georges MD, Phone: [phone] McKinney HospitalUrine Osmolality 2018-05-31 01:57:00* Test Item Value Reference Range Interpretation Comments Urine Osmolality (test code = 2695-5) 353 . 24 hr : 300 - 900 Random: 50 - 1400 After 12hr fluid restriction: >850Performed at: HD - [facility] [address] [id number] Director: Alli Georges MD, Phone: [phone] McKinney HospitalIR HEMROIT0596-75-42 17:22:00 [place] [address] Patient Name: INDRA GALVAN MR #: [id number] : 1980 Age/Sex: 37/M Req #: [id number] Adm Physician: KIET DUMAS MD Ordered by: MANDEEP MARIE MD Report #: [id number] Location: ICU Room/Bed: ICU 190-1 Procedure: 0404-004 [...] a 0.018 " skinny wire. A 5 [place] micropuncture sheat h was then placed and through the micropuncture sheath a 0.035 " Amplatz super stiff wire placed centrally. Dilatation with a 7 [place] Rajesh dilator was a ccomplished. A 7 [place] Arrow triple-lumen 20 cm long central line [...] TO: MANDEEP MARIE MD NON-TUNNELLED CVC CATH CSBNBKB4065-64-75 17:22:00 [address], [place], [place] [address] Patient Name: INDRA GALVAN MR #: [id number] : 1980 Age/Sex: 37/M Req #: [id number] Adm Physician: KIET DUMAS MD Ordered by: MANDEEP MARIE MD Report #: [id number] Location: ICU Room/Bed: ICU [facility] Procedure: 0404-000 3 IR/NON-TUNNELLED CVC CATH PLACMNT [...] 0.018 " skinny wire . A 5 [place] micropuncture sheath was then placed and through the micropunctur e sheath a 0.035 " Amplatz superstiff wire placed centrally. Dilatation with a 7 [place] Rajesh dilator was accomplished. A 7 [place] Arrow triple-lumen 20 cm long central line [...] DO 30 Transcribed By: CATERINA on 05/30/181730 EXPERIMENTAL WORKER Y TO: MANDEEP MARIE MD US GUIDANCE FOR VASCULAR NCTDC4384-27-35 17:22:00 [place] [address] Patient Name: INDRA GALVAN MR #: [id number] : 1980 Age/Sex: 37/M Req #: [id number] Adm Physician: KIET DUMAS MD Ordered by: MANDEEP MARIE MD Report #: [id number] Location: ICU Room/Bed: ICU [facility] Procedure: 0404-001 8 US/US GUIDANCE FOR VASCULAR [...] 0.018 " skinny wire . A 5 [place] micropuncture sheath was then placed and through the micropunctur e sheath a 0.035 " Amplatz superstiff wire placed centrally. Dilatation with a 7 [place] Rajesh dilator was accomplished. A 7 [place] Arrow triple-lumen 20 cm long central line was then placed over the Amplatz wire. Each lumen was flushed with saline. Catheter secured to the skin with 3-0 Ethilon. Post procedure chest x-ray was ordered. Impression: Successful placement of a triple-lumen central line. Signed by: Dr. Kandi Anand DO on 05/31/19 5:31 PM Dictated By: KANDI ANAND DO 30 Transcribed By: CATERINA on 05/30/181730 EXPERIMENTAL WORKER Y TO: MANDEEP MARIE MD Blood Dblrfdn0787-35-20 17:10:00* Test Item Value Reference Range Interpretation Comments Blood Culture (test code = 43399297) NO GROWTH AFTER 72 HOURS [facility] XRAY LINE BMZIJVEBE6549-06-31 15:38:00 [place] [address] Patient Name: INDRA GALVAN MR #: [id number] : 1980 Age/Sex: 37/M Req #: [id number] Adm Physician: KIET DUMAS MD Ordered by: KANDI ANAND DO Report #: [id number] Location: ICU Room/Bed: [place] [address] Procedure: 2844-6327 DX/CHEST XRAY LINE PLACEMENT Exam Date: Exam Time: REPORT STATUS: Signed EXAM: [facility] ST XRAY LINE PLACEMENT, AP Portable DATE: [...] KANDI ANAND DO CHEST SINGLE (PORTABLE)2018-05-30 14:49:00 [place] [address] Patient Name: INDRA GALVAN MR #: [id number] : [birth year] Age/Sex: 37/M Req #: [id number] Adm Physician: KIET DUMAS MD Ordered by: MARITZA SANTANA MD Report #: [id number] Location: ICU Room/Bed: ICU [facility] Procedure: 5415-4213 DX/CHEST SINGLE (PORTABLE) Exam Date: 05/30/18 Exam [...] COPY TO: MARITZA SANTANA MD Urine Legionella Qdypfhx3446-41-44 12:08:00* Test Item Value Reference Range Interpretation Comments Urine Legionella Antigen (test code = 28396-2) Negative Negativ e Presumptive negative for L. pneumophila serogroup 1 antigenin urine, suggesting no recent or current infection.Legionnaires' disease cannot be ruled out since o therserogroups and species may also cause disease.Performed at: [facility] [address] [place], [place] [id number] Director: Esdras Lemon MD, Phone: [phone] McKinney HospitalUrine Legionella Uvfgoxc4125-39-63 12:08:00* Test Item Value Reference Range Interpretation Comments Urine Legionella Antigen (test code = 68434-0) Negative Negativ e Presumptive negative for L. pneumophila serogroup 1 antigenin urine, suggesting no recent or current infection.Legionnaires' disease cannot be ruled out since o therserogroups and species may also cause disease.Performed at: [facility] [address] [place], [place] [id number] Director: Esdras Lemon MD, Phone: [phone] McKinney HospitalHepatitis C Ghwpxaoy2689-82-54 11:20:00* Test Item Value Reference Range Interpretation Comments Hepatitis C Antibody (test code = 30572-2) 0.1 0.0-0.9 Negative: < 0.8 Indeterminate: 0.8 - 0.9 Positive: > 0.9 The CDC recommends that a positive HCV antibody result be followed up with a HCV Nucleic Acid Amplification test (087638).Performed at: [facility] LabTri[facility] Hospitalt [address] [place], [place] [id number] Director: Alli Georges MD, Phone: [phone] McKinney HospitalHepatitis C Welltgkx3434-31-80 11:20:00* Test Item Value Reference Range Interpretation Comments Hepatitis C Antibody (test code = 29037-9) 0.1 0.0-0.9 Negative: < 0.8 Indeterminate: 0.8 - 0.9 Positive: > 0.9 The CDC recommends that a positive HCV antibody result be followed up with a HCV Nucleic Acid Amplification test (461602).Performed at: - [facility] [address] [place], [place] [id number] Director: Alli Georges MD, Phone: [phone] McKinney HospitalUrine DXN6262-10-05 11:03:00* Test Item Value Reference Range Interpretation Comments Urine WBC (test code = 5821-4) 11-20 0-5 H [facility] HospitalUrine DKM0685-10-61 11:03:00* Test Item Value Reference Range Interpretation Comments Urine RBC (test code = 31234-9) NONE 0-5 [facility] HospitalUrine Qyxgdrmo6956-26-81 11:03:00* Test Item Value Reference Range Interpretation Comments Urine Bacteria (test code = 06073-6) FEW NONE [facility] HospitalUrine Epithelial Wexuj8300-91-18 11:03:00 * Test Item Value Reference Range Interpretation Comments Urine Epithelial Cells (test code = 58384-0) RARE NONE [facility] HospitalUrine Transitional Epithelial Cells 2018-05-30 11:03:00* Test Item Value Reference Range Interpretation Comments Urine Transitional Epithelial Cells (test code = 8249-5) FEW NONE [facility] HospitalUrine Transitional Epithelial Cells 2018-05-30 11:03:00* Test Item Value Reference Range Interpretation Comments Urine Transitional Epithelial Cells (test code = 8249-5) FEW NONE [facility] HospitalUrine Pmdaj3640-79-88 10:31:00* Test Item Value Reference Range Interpretation Comments Urine Color (test code = 5778-6) RED YELLOW H [facility] HospitalUrine Cexybtw2090-14-99 10:31:00* Test Item Value Reference Range Interpretation Comments Urine Clarity (test code = 24888-1) SL CLOUDY CLEAR H [facility] [place] [facility] Specific Kjjmzgk1103-07-65 10:31:00 * Test Item Value Reference Range Interpretation Comments Urine Specific [place] (test code = 5811-5) 1.020 1.010-1.02 5 [facility] HospitalUrine eK9932-00-32 10:31:00* Test Item Value Reference Range Interpretation Comments Urine pH (test code = 73783-3) 6 5-7 [facility] [place] [facility] Leukocyte Lhayjwda5174-20-40 10:31:00* Test Item Value Reference Range Interpretation Comments Urine Leukocyte Esterase (test code = 5799-2) NEGATIVE NEGATIVE [facility] [place] [facility] Lcnlzaa7832-82-00 10:31:00* Test Item Value Reference Range Interpretation Comments Urine Nitrite (test code = 31798-5) POSITIVE NEGATIVE H [facility] [place] [facility] Cdnscsa0939-22-32 10:31:00* Test Item Value Reference Range Interpretation Comments Urine Protein (test code = 5804-0) TRACE NEGATIVE H [facility] [place] [facility] Glucose (UA)2018-05-30 10:31:00* Test Item Value Reference Range Interpretation Comments Urine Glucose (UA) (test code = 2349-9) NEGATIVE NEGATIVE [facility] [place] [facility] Fgvkxdx4170-54-35 10:31:00* Test Item Value Reference Range Interpretation Comments Urine Ketones (test code = 86484-2) NEGATIVE NEGATIVE [facility] [place] [facility] Cxgngpmmqedj4139-68-07 10:31:00* Test Item Value Reference Range Interpretation Comments Urine Urobilinogen (test code = 05240-4) 1 0.2-1 [facility] [place] [facility] Acppsdcsq9918-45-54 10:31:00* Test Item Value Reference Range Interpretation Comments Urine Bilirubin (test code = 1978-6) 3+ NEGATIVE H Confirmatory test currently unavailable. False positive results may occur.[facility] Yliyj3442-61-19 10:31:00* Test Item Value Reference Range Interpretation Comments Urine Blood (test code = 05542-2) NEGATIVE NEGATIVE [facility] HospitalFolate2019-04-03 08:07:00* Test Item Value Reference Range Interpretation Comments Folate (test code = 2284-8) 30.1 7.0-15.4 H [facility] HospitalFolate2019-04-03 08:07:00* Test Item Value Reference Range Interpretation Comments Folate (test code = 2284-8) 30.1 7.0-15.4 H [facility] HospitalCHEST SINGLE (PORTABLE)2018-05-29 07:58:00 [facility] [address] [place] [address] Patient Name: INDRA GALVAN MR #: [id number] : 1980 Age/Sex: 37/M Req #: [id number] Adm Physician: KIET DUMAS MD Ordered by: KIRT SCHULTZ MD Report #: [id number] Location: MED/SURG3 Room/Bed: [facility] Procedure: 6356-1281 DX /CHEST SINGLE (PORTABLE) Exam Date: 05/29/18 [...] Comments Vitamin B12 Level (test code = 49848-4) 1700 213-816 H [facility] HospitalVitamin B12 Ghmki2080-77-47 07:19:00* Test Item Value Reference Range Interpretation Comments Vitamin B12 Level (test code = 17234-7) 1700 213-816 H [facility] HospitalIroNYU Langone Health SystemQhtph7523-30-30 07:07:00* Test Item Value Reference Range Interpretation Comments Iron Level (test code = 2498-4) 61 65-175 L [facility] HospitalTotal Iron Binding Qstcoufs7406-14-07 07:07:00* Test Item Value Reference Range Interpretation Comments Total Iron Binding Capacity (test code = 2500-7) 116 261-4 78 L [facility] HospitalPercent Iron Estduirtom9159-88-79 07:07:00* Test Item Value Reference Range Interpretation Comments Percent Iron Saturation (test code = 2502-3) 53 15-50 H [facility] HospitalTransferrin2019-04-03 07:07:00* Test Item Value Reference Range Interpretation Comments Transferrin (test code = 3034-6) 83 174-364 L [facility] HospitalIro Ouysy5005-28-79 07:07:00* Test Item Value Reference Range Interpretation Comments Iron Level (test code = 2498-4) 61 65-175 L [facility] Iron Binding Rmywjmoy7329-21-41 07:07:00* Test Item Value Reference Range Interpretation Comments Total Iron Binding Capacity (test code = 2500-7) 116 261-4 78 L [facility] HospitalPercent Iron Ljdjjuoyks8031-54-85 07:07:00* Test Item Value Reference Range Interpretation Comments Percent Iron Saturation (test code = 2502-3) 53 15-50 H [facility] HospitalTransferrin2019-04-03 07:07:00* Test Item Value Reference Range Interpretation Comments Transferrin (test code = 3034-6) 83 174-364 L [facility] HospitalMyelocytes %2018-05-29 07:06:00* Test Item Value Reference Range Interpretation Comments Myelocytes % (test code = 749-2) 1 0-0 H [facility] HospitalMyelocytes %2018-05-29 07:06:00* Test Item Value Reference Range Interpretation Comments Myelocytes % (test code = 749-2) 1 0-0 H [facility] HospitalPercent Reticulocyte Tavqx2364-58-57 06:26:00* Test Item Value Reference Range Interpretation Comments Percent Reticulocyte Count (test code = 74399-5) 6.4 0.8-2 .2 H [facility] HospitalPercent Reticulocyte Mcqbt3000-06-62 06:26:00* Test Item Value Reference Range Interpretation Comments Percent Reticulocyte Count (test code = 53043-0) 6.4 0.8-2 .2 H [facility] Be Ihgiamp2643-21-40 05:14:00* Test Item Value Reference Range Interpretation Comments Hepatitis Be Antigen (test code = 36412-0) Negative Negative [facility] B Core Total Qhmjrttx6312-08-58 05:14:00* Test Item Value Reference Range Interpretation Comments Hepatitis B Core Total Antibody (test code = 71826-7) Negative Negative Performed at: - [address] [id number] Director: Alli Georges MD, Phone: [phone] Health [facility] B Surface Owvnryc0869-13-21 05:14:00* Test Item Value Reference Range Interpretation Comments Hepatitis B Surface Antigen (test code = 5196-1) Negative Negat mumtaz [facility] Be Mrorkcw3652-73-50 05:14:00* Test Item Value Reference Range Interpretation Comments Hepatitis Be Antigen (test code = 37351-3) Negative Negative [facility] B Core Total Vuvwlzwc2641-93-68 05:14:00* Test Item Value Reference Range Interpretation Comments Hepatitis B Core Total Antibody (test code = 86034-3) Negative Negative Performed at: - [facility] [id number] Director: Alli Georges MD, Phone: [phone] McKinney HospitalHepatitis B Surface Rexklbx3311-64-41 05:14:00* Test Item Value Reference Range Interpretation Comments Hepatitis B Surface Antigen (test code = 5196-1) Negative Negat mumtaz [facility] HospitalProthrombin Ggre8399-58-97 00:09:00* Test Item Value Reference Range Interpretation Comments Prothrombin Time (test code = 5902-2) 15.5 11.9-14.5 H [facility] HospitalProthromb Time International Ratio 2018-05-29 00:09:00* Test Item Value Reference Range Interpretation Comments Prothromb Time International Ratio (test code = 6301-6) 1.17 Oral Anticoagulant Therapy INR Values:1. Low Intensity Therapy 1.5 - 2.02 . Moderate Intensity Therapy 2.0 - 3.03. High Intensity Therapy(1) 2.5 - 3. 54. High Intensity Therapy(2) 3.0 - 4.05. Panic Value INR > 5.0 [facility] (1&2) Lsquzbwc1370-34-41 17:13:00* Test Item Value Reference Range Interpretation Comments HIV (1&2) Antibody (test code = 03021-1) NON-REACTIVE NONREACTIVE [facility] HospitalHI P24 Scfeqlw6900-83-72 17:13:00* Test Item Value Reference Range Interpretation Comments HIV P24 Antigen (test code = HIV P24 Antigen) NON-REACTIVE NONREACT MUMTAZ [facility] (1&2) Drfrsmvc8221-65-08 17:13:00* Test Item Value Reference Range Interpretation Comments HIV (1&2) Antibody (test code = 48585-1) NON-REACTIVE NONREACTIVE [facility] HospitalHIV P24 Gmphhlw7240-32-36 17:13:00* Test Item Value Reference Range Interpretation Comments HIV P24 Antigen (test code = HIV P24 Antigen) NON-REACTIVE NONREACT MUMTAZ [facility] HospitalCT CHEST NL7206-97-91 12:56:00 [facility] [address] [place] [address] Patient Name: INDRA GALVAN MR #: [id number] : 1980 Age/Sex: 37/M Req #: [id number] Adm Physician: KIET DUMAS MD Ordered by: MANDEEP MARIE MD Report #: [id number] [facility]: [facility]SURG[facility] Room/Bed: [facility] Procedure: 0402-[address]/CT CHEST WO Exam [...] 1308 COPY TO: MANDEEP MARIE MD Amylase Ddmov4156-45-07 09:09:00* Test Item Value Reference Range Interpretation Comments Amylase Level (test code = 1798-8) 24 25-125 L [facility] HospitalLipase2019-04-02 09:09:00* Test Item Value Reference Range Interpretation Comments Lipase (test code = 3040-3) 28 8-78 [facility] HospitalAmylase Obdet3506-30-19 09:09:00* Test Item Value Reference Range Interpretation Comments Amylase Level (test code = 1798-8) 24 25-125 L [facility] HospitalLipase2019-04-02 09:09:00* Test Item Value Reference Range Interpretation Comments Lipase (test code = 3040-3) 28 8-78 [facility] HospitalCHEST 2 TJATD6352-86-85 06:24:00 [facility] [address] [place] [address] Patient Name: INDRA GALVAN MR #: [id number] : 1980 Age/Sex: 37/M Req #: [id number] Adm Physician: KIET DUMAS MD Ordered by: ANAYA BUSTAMANTE MD Report #: [id number] Location: MED/SURG3 Room/Bed: [facility] Procedure: 0402-0 010 DX/CHEST 2 VIEWS Exam [...] COPY TO: ANAYA BUSTAMANTE MD CT ABDOMEN/PELVIS X4247-33-28 20:09:00 [facility] [address] [place] [address] Patient Name: INDRA GALVAN MR #: [id number] : 1980 Age/Sex: 37/M Req #: [id number] Adm Physician: KIET DUMAS MD Ordered by: ANAYA BUSTAMANTE MD Report #: [id number] Location: [facility] Room/Bed: [place] [address] Procedure: 0401-[address]/CT ABDOMEN/PELVIS W Exam [...] on 05/27/182039 COPY TO: ANAYA BUSTAMANTE MD GOFMOPMERLB7362-80-72 19:50:00 [place] [address] Patient Name: INDRA GALVAN MR #: [id number] : 1980 Age/Sex: 37/M Req #: [id number] Adm Physician: KIET DUMAS MD Ordered by: ANAYA BUSTAMANTE MD Report #: [id number] Location: [facility] Room/Bed: [place] [address] Procedure: 0401-0 013 US/US GALLBLADDER Exam Date: [...] TO: ANAYA BUSTAMANTE MD B- Type Natriuretic Aqjqwjp8383-09-73 17:56:00* Test Item Value Reference Range Interpretation Comments B-Type Natriuretic Peptide (test code = 72086-0) 221.6 0-100 H [facility] HospitalInfluenza Virus Types A,B Antigen 2018-05-27 17:30:00* Test Item Value Reference Range Interpretation Comments Influenza Virus Types A,B Antigen (test code = 20502-8) NEGATIVE NEGATIVE [facility] HospitalInfluenza Virus Types A,B Antigen 2018-05-27 17:30:00* Test Item Value Reference Range Interpretation Comments Influenza Virus Types A,B Antigen (test code = 84054-6) NEGATIVE NEGATIVE [facility] HospitalTroponin E1216-17-69 17:28:00* Test Item Value Reference Range Interpretation Comments Troponin I (test code = WJO8302) 0.010 0-0.300 [facility] HospitalLactic Acid Mhhxc8266-02-62 17:20:00* Test Item Value Reference Range Interpretation Comments Lactic Acid Level (test code = Lactic Acid Level) 26.5 4.5- 19.8 Results repeated and called to [place] at 1720 on 05/27/18 by Kalin Almanza. Read ba ck and verified.[facility] HospitalCHEST 2 HKNAS6854-46-77 15:47:00 [place] [address] Patient Name: INDRA GALVAN MR #: [id number] : 1980 Age/Sex: 37/M Req #: [id number] Adm Physician: Ordered by: ANAYA BUSTAMANTE MD Report #: [id number] Location: ER Room/Bed: Procedure: 4011-4345 DX/CHEST 2 VIEWS Exam Date: Exam Time: [...] 3:50 PM Dictated By: SONIA Jeffery MD 5548 Transcribed By: CATERINA on 05/27/18 5065 COPY TO: ANAYA BUSTAMANTE MD
[2019-09-26] MEDS ORDERED: SODIUM CHLORIDE 0.9% 250ML 250 ML ONE (23:18)
[2019-09-26 23:30] VITALS: BP 92/52
[2019-09-27 04:27] VITALS: BP 96/58
[2019-09-27 05:55] LABS: BASOPHILS # (AUTO) 0.1 (0.0-0.1); BASOPHILS % 0.7 % (0.0-1.0); EOSINOPHILS # (AUTO) 0.2 (0.0-0.4); EOSINOPHILS % 2.7 % (0.0-6.0); LYMPHOCYTES # (AUTO) 0.6 (1.0-3.2); LYMPHOCYTES % 8.6 % (18.0-39.1); MEAN CORPUSCULAR HEMOGLOBIN 35.1 pg (28-32); MEAN CORPUSCULAR HGB CONC 33.9 g/dL (31-35); MEAN CORPUSCULAR VOLUME 103.5 fL (81-99); MONOCYTES # (AUTO) 0.9 (0.2-0.8); MONOCYTES % 12.3 % (4.4-11.3); NEUTROPHILS # (AUTO) 5.4 (2.1-6.9); NEUTROPHILS % 74.2 % (38.7-80.0); PLATELET COUNT 108 x10e3/uL (140-360); RED BLOOD COUNT 1.71 x10e6/uL (4.3-5.7); RED CELL DISTRIBUTION WIDTH 19.9 % (11.7-14.4)
--- NOTE | 2019-09-27 05:56 | NUR ---
CALLED LAB TO CONFIRM THAT AN LDH LEVEL WAS DRAWN FOR THE PATIENT AND THE LAB CONFIRMED IT WAS DONE
[2019-09-27] MEDS ORDERED: FAMOTIDINE 20 MG TAB PO SCH (06:00)
[2019-09-27 06:14] LABS: ALBUMIN 2.4 g/dL (3.5-5.0); ALBUMIN/GLOBULIN RATIO 0.7 (0.8-2.0); ANION GAP 9.2 mmol/L (8-16); CALCIUM 7.9 mg/dL (8.4-10.2); CREATININE, SERUM 2.29 mg/dL (0.72-1.25); POTASSIUM 3.2 mmol/L (3.5-5.1)
[2019-09-27 06:39] LABS: HEMATOCRIT 17.7 % (38.2-49.6)
--- NOTE | 2019-09-27 06:40 | NUR ---
CALLED DR. BOX OFFICE AND TALKED TO YUNIER BETTS ABOUT THE PATIENT HAVING HEMOGLOBIN OF 6 AND HEMATOCRIT OF 17.7. SHE WAS TOLD PATIENT WAS GIVEN 2 UNITS OF BLOOD WITH DIALYSIS LAST NIGHT AND WILL BE GIVEN 1 MORE UNIT OF BLOOD. ROXANE SAID OKAY AND GAVE NO FURTHER ORDERS.
[2019-09-27 06:49] LABS: FERRITIN 565.91 ng/mL (21.81-274.66)
--- NOTE | 2019-09-27 07:14 | NUR ---
GAVE BEDSIDE SHIFT REPORT TO ONCOMING NURSE. CALL LIGHT WITHIN REACH. PATIENT ASLEEP IN BED. HOURLY ROUNDING PERFORMED.
[2019-09-27] MEDS ORDERED: PANTOPRAZOLE SOD 40 MG TABEC PO SCH (07:30)
--- NOTE | 2019-09-27 07:50 | NUR ---
SPOKE TO DR. VALENZUELA REGARDING POTASSIUM OF 3.2 AND HEMOGLOBIN OF 6, DR. VALENZUELA STATED THAT HE WOULD HANDLE IT WITH THE SHIPWRIGHT SUPERVISOR.
[2019-09-27] MEDS ORDERED: IRON SUCROSE 100 MG in SODIUM CHLORIDE 0.9% 100 ML 100 ML IV SCH (09:00)
[2019-09-27] MEDS ORDERED: FOLIC ACID 1 MG TAB PO SCH (09:00)
[2019-09-27] MEDS: NIFEDIPINE CR 30 MG TAB PO SCH ×2 (09:00→17:00)
[2019-09-27 09:42] VITALS: BP 96/58
[2019-09-27] MEDS ORDERED: PANTOPRAZOLE SO40 MG PO (10:11)
--- NOTE | 2019-09-27 10:23 | NUR ---
CALLED AND SPOKE TO BENOIT AT DR. ENRIQUE'S OFFICE REGARDING [employer] CORRESPONDENT FOR DR. BOX INTENTIONS TO GIVE PT 3 MORE UNITS OF BLOOD INSTEAD OF JUST 1 UNIT OF BLOOD. SPOKE TO DR. VALENZUELA, RENAL SPECIALIST REGARDING PATIENT 3 MORE UNITS OF BLOOD, HE STATED THAT IS FINE.
--- NOTE | 2019-09-27 11:48 | Progress Note ---
DATE: 09/27/2019 Nephrology Followup Note SUBJECTIVE: The patient did not appear to be in any acute distress and denied any nausea, vomiting, chest pain, or shortness of breath. OBJECTIVE: VITAL SIGNS: Blood pressure was 96/58, respirations 18, heart rate 88, and temperature 99. CHEST: Revealed fair air entry. HEART: S1, S2. ABDOMEN: Soft, slightly distended. EXTREMITIES: No significant edema. SECUR[employer]PERATIONS [employer] ANALYST: He is awake and alert and oriented x3. LABORATORY DATA: Sodium 136, potassium 3.2, chloride 102, CO2 of 28, BUN 11, and creatinine 2.2. Hematology, white cell count 7.3, hemoglobin 6, hematocrit 17.7, and platelet count of 108,000. IMPRESSION: 1. End-stage renal disease, on hemodialysis on Sunday, , and Sunday schedule for dialysis later today. 2. Anemia with gastrointestinal bleed. 3. Liver cirrhosis. PLAN: Dialysis later today. We will give 2-3 units of packed RBCs on dialysis. Further recommendations to follow. Erlinda Vincent MD SA/SINDI /[id number]
[2019-09-27] MEDS ORDERED: SODIUM CHLORIDE 0.9% 250ML 250 ML ONE (14:39)
[2019-09-27 17:18] VITALS: BP 93/53
--- NOTE | 2019-09-28 19:15 | Discharge Summary ---
ADMISSION DIAGNOSES: Anemia due to chronic blood loss and also due to chronic disease of end-stage renal disease, alcoholic cirrhosis, hypertension with end-stage renal disease, end-stage renal disease. DISCHARGE DIAGNOSES: Anemia due to chronic blood loss and also due to chronic disease of end-stage renal disease, alcoholic cirrhosis, hypertension with end-stage renal disease, end-stage renal disease, acute blood loss anemia due to gastrointestinal bleed. HISTORY: Hypertension, end-stage renal disease, alcoholic cirrhosis. SURGICAL HISTORY: None. FAMILY HISTORY: None. SOCIAL HISTORY: The patient quit alcohol use about a year ago. HOSPITAL COURSE: A 38-year-old male, was told his hemoglobin was 7.5 and told to come to the ER. He has been feeling weak and tired for about a week. On admission, the patient's hemoglobin was 5.2. Two PRBCs were ordered. GI was consulted and Protonix was started. After 2 units, the hemoglobin only went up to 6, so three additional PRBCs were ordered. His stool for blood came back positive. Ultrasound of the abdomen showed hepatosplenomegaly with trace ascites. No focal hepatic mass identified. Cholelithiasis without evidence of cholecystitis. The patient will receive dialysis and get the three additional PRBCs. He is very adamant about leaving today. He says he does not want to do any EGD or colonoscopy or even wait for the GI doctor to talk to him. He said after he gets the 3 units with dialysis, which were total 5 units, he wants to go home. He was given a prescription for Protonix. He is not complaining of bright red blood per rectum, and said that he only had one bowel movement that was dark brown. He was advised to follow up with GI outpatient and primary care in 1 to 2 weeks. The patient understands discharge instructions and agrees to plan. Vital signs are stable. The patient is afebrile. Dictated by Anna Burgess NP MD EDITH Lopez/MODL /[id number]
== END 2019-09-27 19:03 | disposition home or self-care (01) | DRG 377 ==
LOC: ER 11:00 → ERHOLD 12:45 → MED/SURG 13:30 → OBSVTOIN 18:04
PROVIDERS: ADMIT Internal Medicine; ATTEND Internal Medicine
PROC: 5A1D70Z Performance of Urinary Filtration, Intermittent, Less than 6 Hours Per Day (ICD-10-PCS; principal; 2019-09-26)
PROC: 30233N1 Transfusion of Nonautologous Red Blood Cells into Peripheral Vein, Percutaneous Approach (ICD-10-PCS; 2019-09-26)
PROC: 5A1D70Z Performance of Urinary Filtration, Intermittent, Less than 6 Hours Per Day (ICD-10-PCS; 2019-09-27)
PROC: 30233N1 Transfusion of Nonautologous Red Blood Cells into Peripheral Vein, Percutaneous Approach (ICD-10-PCS; 2019-09-27)
DX: K92.2 Gastrointestinal hemorrhage, unspecified (principal); N18.6 End stage renal disease; D62 Acute posthemorrhagic anemia; I12.0 Hypertensive chronic kidney disease with stage 5 chronic kidney disease or end stage renal disease; Z82.49 Family history of ischemic heart disease and other diseases of the circulatory system; Z99.2 Dependence on renal dialysis; D63.1 Anemia in chronic kidney disease; K70.31 Alcoholic cirrhosis of liver with ascites; F10.21 Alcohol dependence, in remission; K80.20 Calculus of gallbladder without cholecystitis without obstruction; Z11.59 Encounter for screening for other viral diseases; Z87.440 Personal history of urinary (tract) infections
CPT/HCPCS: 36415; 71045; 76700; 80053; 82140; 82248; 82270; 82550; 82553; 82607; 82728; 82746; 83540; 83615; 84155; 84466; 84484; 85025; 85045; 85610; 85730; 86707; 86850; 86900; 86920; 87350; 93005; 99284; J1756; J7050; P9016; U0002

== ENCOUNTER 2019-10-18 08:46 | Inpatient (IN) | payer BC, OTHER ==
[~2019-10-18] VITALS: Ht 182.9 cm; Wt 102.5 kg
[2019-10-18] VITALS (8 sets, daily range): BP systolic 91–108; BP diastolic 42–62
[~2019-10-18 08:46] MED LIST changes: +MIDODRINE HCL10 MG; +PANTOPRAZOLE SO40 MG
[2019-10-18] MEDS ORDERED: PANTOPRAZOLE 40 MG 10ML VIAL IV ONE (08:59)
[2019-10-18] MEDS ORDERED: OCTREOTIDE ACETATE 0.05 MG/ML AMP IV STA (09:10)
[2019-10-18 09:15] LABS: BASOPHILS % 0.2 % (0.0-1.0); EOSINOPHILS # (AUTO) 0.2 (0.0-0.4); EOSINOPHILS % 1.2 % (0.0-6.0); LYMPHOCYTES # (AUTO) 0.9 (1.0-3.2); LYMPHOCYTES % 7.3 % (18.0-39.1); MEAN CORPUSCULAR HEMOGLOBIN 37.5 pg (28-32); MEAN CORPUSCULAR HGB CONC 33.1 g/dL (31-35); MEAN CORPUSCULAR VOLUME 113.4 fL (81-99); MONOCYTES # (AUTO) 1.1 (0.2-0.8); MONOCYTES % 8.9 % (4.4-11.3); NEUTROPHILS # (AUTO) 10.5 (2.1-6.9); NEUTROPHILS % 81.5 % (38.7-80.0); PLATELET COUNT 147 x10e3/uL (140-360); RED BLOOD COUNT 1.12 x10e6/uL (4.3-5.7); RED CELL DISTRIBUTION WIDTH 17.5 % (11.7-14.4)
[2019-10-18] MEDS ORDERED: OCTREOTIDE ACETATE 400 MCG in SODIUM CHLORIDE 0.9% 250ML 200 ML IV SCH (09:15)
[2019-10-18 09:19] LABS: HEMOGLOBIN 4.2 g/dL (14.0-18.0)
[2019-10-18 09:20] LABS: HEMATOCRIT 12.7 % (38.2-49.6)
[2019-10-18 09:24] LABS: INR 1.54; PROTHROMBIN TIME 19.4 seconds (11.9-14.5)
[2019-10-18 09:25] LABS: PARTIAL THROMBOPLASTIN TIME 46.5 seconds (23.8-35.5)
--- OUTSIDE RECORDS SUMMARY | 2019-10-18 09:29 | XMS REPORT | Clinical Summary ---
Author Author PATY Keystone RV CompanyCaribou Memorial [email or web address] Hospital BoonevilleSkynet Technology InternationalProvidence Mount Carm[facility] Address Unknown Phone Unavailable Care Team Providers Care Bureau Director Name Role Phone Keith Hammond Unavailable Pcp, [...] 50 mg by 0 tablet mouth nightly. 07/10/2019 multivitamin (THERAGRAN) Take 1 tablet 0 05/15 /201 tablet by mouth 9 daily. 11/07/2018 Discontinued furosemide (LASIX) 10 Inject 2 mLs 0 07/11/19 1 mg/mL injection (20 mg total) 9 intravenously daily as needed (significant edema) Patient with hypotension, on midodrine. Need to watch BPs. 11/07/2018 Discontinued traZODone (DESYREL) 100 Take 100 [...] 3 mg Tab tablet Take 2 0 10/27 tablets (6 mg 9 total) by mouth [...] Encounters Care Team Description Date Type Specialty Michael Blount LCSW Social Work 10/17/2019 Telephone Transplant Hepatolo Anastacio Dickson Appointment 07/28/2019 Telephone Transplant Hepatolo Michael Bejarano LCSW Social Work 07/18/2019 Telephone Transplant Hepatolo Malina Mcpherson, RN Follow-up 07/18/2019 Telephone Transplant Hepatolo Shonda Valverde MD MPH Alcoholic cirrhosis of liver with ascite s (HCC) (Primary Dx); Portal hypertension (HCC); Screening for malignant neoplasm; Immunity status testing; Immunization counseling; Alcohol use; ESRD on hemodialysis (HCC) 06/17/2019 Audio - Transplant Hepatolo gy Telemedicine Dorothy Boss Appointment 06/16/2019 Telephone Transplant Anastacio Killian Appointment [...] 05/28/2019 Social Work Transplant Hepatolo gy Emily Vazquez RN 05/27/2019 Documentation Transplant Nay Monroe RN 05/27/2019 Abstract Transplant Hepatolo Emily Fairchild RN 05/27/2019 Documentation Transplant Bib Dumont RN 05/27/2019 Documentation Transplant Hepatolo gy Erik De Leon MD Inactivated for transplant 05/27/2019 Telephone Hepatology Bib Dumont RN 05/27/2019 Documentation Transplant Hepatolo gy Devyn Lantigua MD 05/23/2019 Hospital Radiology Encounter Devyn Lantigua MD Alcoholic hepatitis with ascites; Fatty liver 05/23/2019 Orders Only Malina Acharya RN 05/23/2019 Abstract Transplant Hepatolo gy Abby Osei, SARAH 05/23/2019 Abstract Transplant Hepatolo gy Abby Osei, SARAH 05/23/2019 Abstract Transplant Hepatolo gy Abby Osei, MA 05/23/2019 Abstract Transplant Hepatolo gy Malina Mcmillan, RN Screening for cancer (Primary Dx); Awaiting organ transplant status; Alcoholic cirrhosis of liver with ascites (HCC) 05/22/2019 Orders Only Transplant Hepatolo gy Malina Mcmillan, RN Screening for cancer 05/22/2019 Orders Only Transplant Hepatolo gy Bib Dumont RN 05/16/2019 Documentation Transplant Hepatolo Marissa Denis Labs Only 05/15/2019 Telephone Transplant Hepatolo Marissa Denis Labs Only 05/15/2019 Telephone Transplant Hepatolo gy Katie Garsia, KATHERINE 05/14/2019 Documentation Transplant Hepatolo gy Katie Garsia, KATHERINE 05/14/2019 Documentation Transplant Hepatolo gy Bib Dumont RN Alcoholic hepatitis with ascites (Primar y Dx); Fatty liver; ESRD on hemodialysis (HCC) 05/14/2019 Orders Only Transplant Hepatolo gy Delores Schaefer, KATHERINE 05/14/2019 Documentation Transplant Devyn Lantigua MD Fuller, Abel Woo NP Screening for cancer (Primary Dx); Alcoholic cirrhosis of liver with ascites (HCC); Hepatic encephalopathy (HCC); Tubular adenoma 05/13/2019 Office Visit Hepatology Elizabeth Gordillo 05/13/2019 Documentation Transplant Abby Osei MA Appointment (SCREENED ) 05/13/2019 Telephone Hepatology Lauri Harris LCSW 05/13/2019 Social Work Transplant Hepatolo gy Bib Dumont RN 05/13/2019 Documentation Transplant Hepatolo gy Carley Boston PA 05/12/2019 Documentation Hepatology Marissa Mixon Appointment 05/12/2019 Telephone Transplant Hepatolo Marissa Denis Appointment (LVM asking pt to return my call, clinic scheduling needed.) 05/12/2019 Telephone Central Scheduling Placido Zimmerman MD Liver Transplant Evaluation 05/10/2019 Telephone Hepatology Connie Christensen Appointment 05/08/2019 Telephone Transplant Connie Christensen 05/08/2019 Telephone Transplant Robbie Nwe MD PERICARDIOCENTESIS 05/07/2019 Surgery Marj Malin MD 05/06/2019 Anesthesia Gastroenterology Event Zainab Alves MD UPPER ENDOSCOPY 05/06/2019 Surgery Gastroenterology Radha Mera, KATHERINE Appointment 05/06/2019 Telephone Transplant 05/05/2019 Travel Marissa Mixon Appointment 05/05/2019 Telephone Transplant Hepatolo Marissa Denis Appointment 05/05/2019 Telephone Transplant Hepatolo gy 05/05/2019 Orders Only General Internal Me mynor Calhoun, Juanpablo Moreno MD Westfall, Clarke Newell MD Sepsis due to other etiology (HCC) (Prim una Dx); Anemia due to other cause, not classified; Chronic kidney disease with end stage renal failure on dialysis (HCC); Acute hyponatremia; Pre-transplant evaluation for liver transplant; Hypotension due to hypovolemia; ESRD (end stage renal disease) on dialysis (HCC); Symptomatic anemia 05/04/2019 [facility] Cardiology - Encounter 05/10/2019 05/04/2019 Travel Marissa Mixon Labs Only (LVM asking pt tor return my c all, labs are due.) 05/02/2019 Telephone Transplant Bib Roger RN Alcoholic hepatitis with ascites (Primar y Dx); Fatty liver 04/08/2019 Orders Only Transplant Bib Roger RN 04/08/2019 Documentation Transplant Devyn Velasco MD Alcoholic hepatitis with ascites; ESRD on hemodialysis (HCC) 04/07/2019 Orders Only Transplant Bib Roger RN 04/07/2019 Documentation Transplant Dorothy Sethi 04/07/2019 Documentation Transplant Bib Dumont RN 04/04/2019 [...] Transplant Martha Donaldson RN 02/07/2019 Documentation Transplant Gena Gordon MD Mindikoglu, Ayse Leyla, MD [facility] Alcoholic hepatitis with ascites (Primar y Dx); [...] evaluation for end stage renal disease 02/03/2019 [facility] Radiology Encounter System, Provider Not In 02/03/2019 Outside Orders Martha Oquendo RN Fatty liver (Primary Dx); ESRD (end stage renal disease) (HCC); Acute blood loss anemia 01/24/2019 Orders Only Transplant Servando Handley RN ESRD (end stage renal disease) (HCC) (Pr imary Dx) 01/22/2019 Orders Only Transplant Jessie Emery Appointment (LVM. Called to confirm hospital f/u appt wpt. Itinerary mailed.) 01/20/2019 Telephone Transplant Alejandrina Quiroga MD Hasan, MD Eliceo Paredes, Perri Butterfield MD Anemia due to chronic kidney disease, on chronic dialysis (HCC) (Primary Dx); Alcoholic cirrhosis of liver without ascites (HCC); ESRD (end stage renal disease) (HCC); Gastrointestinal hemorrhage with melena 01/17/2019 Hospital Cardiology - Encounter 01/18/2019 01/17/2019 Travel Ye Pool MD 01/17/2019 Orders Only Internal Medicine Martha Oquendo RN 01/17/2019 Orders Only Transplant HepatMartha Barnes RN Direct admission for anemia 01/17/2019 Telephone Transplant HepatGena Koenig MD Pandya, Aashish Mahesh, MD Pre-transplant evaluation [...] f/ u appt w/pt.) 01/06/2019 Telephone Transplant Larisajuanito thayer 01/04/2019 Travel Pratik Valdez MD Daniel, Jamuna V., MD Acute blood loss anemia (Primary Dx); ESRD (end stage renal disease) on dialysis (HCC); Alcoholic cirrhosis of liver without ascites (HCC); Thrombocytopenia (HCC); Chronic hypotension; Fatty liver; Gastrointestinal hemorrhage with melena; Portal hypertension (HCC); Alcohol abuse; Anemia, unspecified type; Hemorrhoids, unspecified hemorrhoid type 01/03/2019 Hospital Cardiology - Encounter 01/06/2019 01/03/2019 Travel [...] 33.9 in adult; Portal hypertension (HCC) 12/21/2018 [facility] General Internal Id dicine - Encounter 12/26/2018 12/21/2018 Orders Only General Internal Id dicine 12/21/2018 Travel Jessie Emery Appointment ([facility] for patient case coordinator Annika camacho (pt currently admitted @ [place]) Scheduled 12/17 clinic appt @ 9:30. Itinerary mailed to pt.) 11/18/2018 Telephone Transplant Jessie Philippe 11/12/2018 Documentation Transplant Hepatolo gy Nasra Cavazos 11/11/2018 Documentation Transplant Hepatolo gy Emma Silva CRNA 11/10/2018 Anesthesia Gastroenterology Event Devyn Lantigua MD COLONOSCOPY,BIOPSY 11/10/2018 Surgery Gastroenterology Nasra Cavazos 11/08/2018 Abstract Transplant Hepatolo gy Drake Garcia Jr., MD 11/07/2018 Abstract Transplant Hepatolo gy Delores Rucker MD 10/19/2018 Anesthesia Gastroenterology Event Shy Parisi MD COLONOSCOPY,BIOPSY 10/19/2018 Surgery Gastroenterology 10/17/2018 Orders Only General Internal Id Minal Andrews MD Neason, Chau Le, MD [...] liver failure with hepatic coma (HCC) 10/16/2018 [facility] Internal Id dicine - Encounter 11/15/2018 after 10/17/2018 Family History Medical History Relation Name Comments [...] unspecified vessel or lesion type, unspecified whether [place] or transplanted heart (HCC) BODY FLUID CULTURE [...] ms QTC Calculatio n(Bazett) 490 ms R [place] 151 degrees T [place] -88 degrees Undetermi lara rhythm Left posterior [...] ms QTC Calculatio n(Bazett) 262 ms R [place] 153 degrees T [place] -84 degrees Sinus tachycardi a with 1st [...] ms QTC Calculatio n(Bazett) 511 ms P [place] 254 degrees R [place] 46 degrees T [place] -73 degrees Atrial flutter with variable A-V [...] ms QTC Calculatio n(Bazett) 0 ms R [place] 0 degrees T [place] 0 degrees No QRS complexes found, no [...] ms QTC Calculatio n(Bazett) 557 ms P [place] 45 degrees R [place] 33 degrees T [place] 29 degrees Normal sinus rhythm Nonspecifi c [...] Alcohol ic hepatitis with DIFFERENTIAL 9:34 AM [employer] ascites ESRD on hemodialysis (HCC) PROTHROMBIN TIME/INR Routine 04/07/2019 Alcoholic hepatitis with 9:34 AM [employer] ascites ESRD on hemodialysis (HCC) HEPATIC FUNCTION PANEL Routine 04/07/2019 Alcohol ic hepatitis with 9:34 AM [employer] ascites ESRD on hemodialysis (HCC) CBC W/PLT COUNT & AUTO Routine 04/07/2019 Alcohol ic hepatitis with DIFFERENTIAL 9:34 AM [employer] ascites ESRD on hemodialysis (HCC) BASIC METABOLIC PANEL (7) Routine 04/07/2019 Alco holic hepatitis with 9:34 AM [employer] ascites ESRD on hemodialysis (HCC) CBC W/PLT COUNT & AUTO Routine 03/14/2019 Alcohol ic cirrhosis of DIFFERENTIAL 10:32 AM [employer] liver without ascit es (HCC) PROTHROMBIN TIME/INR Routine 03/14/2019 Alcoholic cirrhosis of 10:32 AM [employer] liver without ascites (HCC) CBC W/PLT COUNT & AUTO Routine 03/14/2019 Alcohol ic cirrhosis of DIFFERENTIAL 10:32 AM [employer] liver without ascit es (HCC) HEPATIC FUNCTION PANEL Routine 03/14/2019 Alcohol ic cirrhosis of 10:32 AM [employer] liver without ascites (HCC) BASIC METABOLIC PANEL (7) Routine 03/14/2019 Alco holic cirrhosis of 10:32 AM [employer] liver without ascites (HCC) CBC W/PLT COUNT & AUTO Routine 03/04/2019 Iron de ficiency anemia, DIFFERENTIAL 10:00 AM [employer] unspecified iron deficiency anemia type COMPREHENSIVE METABOLIC Routine 03/04/2019 Alcoho lic cirrhosis of PANEL 10:00 AM [employer] liver with ascites (HCC) CBC W/PLT COUNT & AUTO Routine 03/04/2019 Iron de ficiency anemia, DIFFERENTIAL 10:00 AM [employer] unspecified iron deficiency anemia type BILIRUBIN, DIRECT Routine 03/04/2019 Alcoholic ci rrhosis of 10:00 AM [employer] liver with ascites (HCC) PROTHROMBIN TIME/INR Routine 03/04/2019 Alcoholic cirrhosis of 9:55 AM [employer] liver with ascites (HCC) COMPREHENSIVE METABOLIC Routine 02/03/2019 Fatty liver PANEL 10:13 AM [employer] BILIRUBIN, DIRECT Routine 02/03/2019 Fatty liver 10:13 AM [employer] CBC W/PLT COUNT & AUTO Routine 02/03/2019 ESRD (e nd stage renal DIFFERENTIAL 10:12 AM [employer] disease) (HCC) Acute blood loss anemia PROTHROMBIN TIME/INR Routine 02/03/2019 Fatty maru er 10:12 AM [employer] CBC W/PLT COUNT & AUTO Routine 02/03/2019 ESRD (e nd stage renal DIFFERENTIAL 10:12 AM [employer] disease) (HCC) Acute blood loss anemia US PELVIS WITH DOPPLER Routine 02/03/2019 ESRD (e nd stage renal 9:35 AM [employer] disease) (HCC) Pre-transplant evaluation for end stage renal disease RHYTHM STRIP - SCAN 01/21/2019 11:42 AM [employer] RHYTHM STRIP - SCAN 01/20/2019 4:02 PM [employer] RHYTHM STRIP - SCAN 01/20/2019 4:02 PM [employer] TRANSFUSION SERVICE 01/19/2019 REPORT - SCAN 6:00 PM [employer] PREPARE LEUKO-REDUCED RBC Routine 01/18/2019 11:55 PM [employer] TRANSFUSION SERVICE 01/18/2019 REPORT - SCAN 6:03 PM [employer] VITAMIN B12 AND FOLATE Routine 01/18/2019 5:47 PM [employer] HAPTOGLOBIN Routine 01/18/2019 5:47 PM [employer] LACTATE DEHYDROGENASE Routine 01/18/2019 (LDH) 5:47 PM [employer] IRON, TIBC, % SAT. Routine 01/18/2019 (WITHOUT FERRITIN) 5:47 PM [employer] FERRITIN Routine 01/18/2019 5:47 PM [employer] ULTRAFILTRATION HD CRRT Routine 01/18/2019 3:13 PM [employer] HEMOGLOBIN AND HEMATOCRIT STAT 01/18/2019 11:17 AM [employer] CBC (HEMOGRAM ONLY) Routine 01/18/2019 2:51 AM [employer] TRANSFUSE LEUKO-REDUCED Routine 01/17/2019 RED BLOOD CELLS 11:33 PM [employer] TRANSFUSE LEUKO-REDUCED Routine 01/17/2019 RED BLOOD CELLS 10:39 PM [employer] HEMODIALYSIS INPATIENT Routine 01/17/2019 9:29 PM [employer] TYPE AND SCREEN, Routine 01/17/2019 AUTOMATED 3:35 PM [employer] CBC W/PLT COUNT & AUTO Routine 01/16/2019 Alcohol ic cirrhosis of DIFFERENTIAL 3:56 PM [employer] liver without ascit es (HCC) AB SPECIFICITY CLASS I Routine 01/16/2019 ESRD (e nd stage renal 3:56 PM [employer] disease) (HCC) Pre-transplant evaluation for end stage renal disease ALPHA FETOPROTEIN (AFP), Routine 01/16/2019 Alcoh olic cirrhosis of TUMOR MARKER 3:56 PM [employer] liver without ascit es (HCC) PROTHROMBIN TIME/INR Routine 01/16/2019 Alcoholic cirrhosis of 3:56 PM [employer] liver without ascites (HCC) CBC W/PLT COUNT & AUTO Routine 01/16/2019 Alcohol ic cirrhosis of DIFFERENTIAL 3:56 PM [employer] liver without ascit es (HCC) HEPATIC FUNCTION PANEL Routine 01/16/2019 Alcohol ic cirrhosis of 3:56 PM [employer] liver without ascites (HCC) BASIC METABOLIC PANEL (7) Routine 01/16/2019 Alco holic cirrhosis of 3:56 PM [employer] liver without ascites (HCC) FLOW PRA CLASS II WITH Routine 01/16/2019 ESRD (e nd stage renal REFLEX TO ANTIBODY 3:56 PM [employer] disease) (HCC) SPECIFICITY Pre-transplant evaluation for end stage renal disease FLOW PRA CLASS I WITH Routine 01/16/2019 ESRD (en d stage renal REFLEX TO ANTIBODY 3:56 PM [employer] disease) (HCC) SPECIFICITY Pre-transplant evaluation for end stage renal disease HLA TYPING CII Routine 01/16/2019 ESRD (end stage renal 3:56 PM [employer] disease) (HCC) Pre-transplant evaluation for end stage renal disease HLA TYPING CI Routine 01/16/2019 ESRD (end stage renal 3:56 PM [employer] disease) (HCC) Pre-transplant evaluation for end stage renal disease RHYTHM STRIP - SCAN 01/08/2019 9:10 AM [employer] TRANSFUSION SERVICE 01/06/2019 REPORT - SCAN 5:50 PM [employer] HEPATIC FUNCTION PANEL Routine 01/06/2019 6:01 AM [employer] PROTHROMBIN TIME/INR Routine 01/06/2019 6:01 AM [employer] MAGNESIUM Routine 01/06/2019 6:01 AM [employer] BASIC METABOLIC PANEL (7) Routine 01/06/2019 6:01 AM [employer] CBC (HEMOGRAM ONLY) Routine 01/06/2019 6:01 AM [employer] MISCELLANEOUS LAB ORDER Routine 01/06/2019 6:01 AM [employer] PREPARE LEUKO-REDUCED RBC Routine 01/05/2019 11:54 PM [employer] TRANSFUSION SERVICE 01/05/2019 REPORT - SCAN 5:50 PM [employer] PROTHROMBIN TIME/INR Routine 01/05/2019 4:30 AM [employer] HEPATIC FUNCTION PANEL Routine 01/05/2019 4:30 AM [employer] MAGNESIUM Routine 01/05/2019 4:30 AM [employer] BASIC METABOLIC PANEL (7) Routine 01/05/2019 4:30 AM [employer] CBC (HEMOGRAM ONLY) Routine 01/05/2019 4:30 AM [employer] PREPARE LEUKO-REDUCED RBC STAT 01/04/2019 11:54 PM [employer] TRANSFUSION SERVICE 01/04/2019 REPORT - SCAN 5:53 PM [employer] DRUG SCREEN, URINE, Routine 01/04/2019 TRANSPLANT 5:39 PM [employer] DRUG SCREEN, URINE, Routine 01/04/2019 COMPREHENSIVE 5:39 PM [employer] TRANSFUSE LEUKO-REDUCED Routine 01/04/2019 RED BLOOD CELLS 2:09 PM [employer] ETHANOL Routine 01/04/2019 9:42 AM [employer] CBC W/PLT COUNT & AUTO Routine 01/04/2019 DIFFERENTIAL 4:07 AM [employer] CBC W/PLT COUNT & AUTO Routine 01/04/2019 DIFFERENTIAL 4:07 AM [employer] HEPATIC FUNCTION PANEL Routine 01/04/2019 4:07 AM [employer] BASIC METABOLIC PANEL (7) Routine 01/04/2019 4:07 AM [employer] TRANSFUSE LEUKO-REDUCED STAT 01/04/2019 RED BLOOD CELLS 1:55 AM [employer] TYPE AND SCREEN, STAT 01/03/2019 AUTOMATED 9:56 PM [employer] CBC W/PLT COUNT & AUTO STAT 01/03/2019 DIFFERENTIAL 9:54 PM [employer] PT/APTT STAT 01/03/2019 9:54 PM [employer] HEPATIC FUNCTION PANEL STAT 01/03/2019 9:54 PM [employer] BASIC METABOLIC PANEL (7) STAT 01/03/2019 9:54 PM [employer] CBC W/PLT COUNT & AUTO STAT 01/03/2019 DIFFERENTIAL 9:54 PM [employer] REPORT OF PROCEDURE - 12/31/2018 ENDOSCOPY SCAN 12:52 PM [employer] TRANSFUSION SERVICE 12/27/2018 REPORT - SCAN 6:02 [...] ms QTC Calculatio n(Bazett) 541 ms P [place] 40 degrees R [place] 30 degrees T [place] 14 degrees Normal sinus rhythm Prolonged QT [...] Routine 10/17/2018 URINE CULTURE 12:37 AM CDT after 10/17/2018 Results * MR abdomen with/without IV contrast (05/23/2019 12:08 PM CDT) Only the most recent of 2 results within the time period is included. Specimen Narrative Performed At FINAL REPORT [facility] MRI of the abdomen with and without [...] Report Verified Date/Time: 0 12:54:18 Reading Location: [address] Reading Room Procedure Note Interface, External [...] Report Verified Date/Time: 05/23/2019 12:54:18 Reading Location: [facility] [id number] Ortho Consult Reading Room Performing Organization Address City/State/Zipcode Ph one Number GE RIS * CBC with platelet count + automated diff (05/23/2019 9:03 AM CDT) Only the most recent of 59 results within the time period is included. WBC 7.3 3.5 - 10.5 K/L [facility] RBC 2.33 (L) 4.63 - 6.08 M/L [facility] Hemoglobin 7.3 (L) 13.7 - 17.5 GM/DL [facility] Hematocrit 22.0 (L) 40.1 - 51.0 % [facility] MCV 94.4 (H) 79.0 - 92.2 fL [facility] MCH 31.3 25.7 - 32.2 pg [facility] MCHC 33.2 32.3 - 36.5 GM/DL [facility] RDW 18.6 (H) 11.6 - 14.4 % [facility] Platelets 94 (L) 150 - 450 K/CU MM [facility] MPV 8.4 (L) 9.4 - 12.4 fL [facility] nRBC 0 0 - 0 /100 WBC [facility] % Neutros 69 % [facility] % Lymphs 18 % [facility] % Monos 9 % [facility] % Eos 3 % [facility] % Baso 1 % [facility] # Neutros 5.03 1.78 - 5.38 K/L [facility] # Lymphs 1.31 (L) 1.32 - 3.57 K/L [facility] # Monos 0.62 0.30 - 0.82 K/L [facility] # Eos 0.23 0.04 - 0.54 K/L [facility] # Baso 0.06 0.01 - 0.08 K/L [facility] Immature 0 0 - 1 % [facility] Granulocytes-Relative [facility] Specimen Blood Performing Organization Address City/State/Zipcode Ph one Number [address] [facility] * Prothrombin time/INR (05/23/2019 9:03 AM CDT) Only the most recent of 39 results within the time period is included. Protime 16.6 (H) 11.9 - 14.2 seconds [facility] INR 1.4 <=5.9 [facility] Specimen Blood Narrative Performed At Effective 07/24/2018: PT Reference Range Change [facility] New: 11.9-14.2Previous: 11.7-14.7 [facility] RECOMMENDED COUMADIN/WARFARIN INR THERA PY RANGES STANDARD DOSE: 2.0-3.0Includes: PRO PHYLAXIS for venous thrombosis, systemic embolization; TREATMENT for venous thro mbosis and/or pulmonary embolus. HIGH RISK: Target INR is 2.5-3.5 for pa torstens wiht mechanical heart valves. Performing Organization Address [facility] one Number [address] [facility] * Hepatic function panel (05/23/2019 9:03 AM CDT) Only the most recent of 41 results within the time period is included. Protein, Total 6.5 6.0 - 8.3 gm/dL [facility] Albumin 3.4 (L) 3.5 - 5.0 g/dL [facility] Total Bilirubin 5.4 (H) 0.2 - 1.2 mg/dL [facility] Bilirubin, Direct 2.6 (H) 0.1 - 0.5 mg/dL [facility] Alkaline Phosphatase 200 (H) 40 - 150 U/L [facility] AST 46 (H) 5 - 34 U/L [facility] ALT 12 6 - 55 U/L [facility] Specimen Blood Narrative Performed At [facility] Billing Specialist ID - KAVONG [facility] Performing Organization Address City/[facility] one Number [address] [facility] * Basic Metabolic Panel (05/23/2019 9:03 AM CDT) Only the most recent of 47 results within the time period is included. Sodium 139 136 - 145 meq/L [facility] Potassium 3.3 (L) 3.5 - 5.1 meq/L [facility] Chloride 100 98 - 107 meq/L [facility] CO2 30 (H) 22 - 29 meq/L [facility] BUN 25 (H) 7 - 21 mg/dL [facility] Creatinine 2.87 (H) 0.57 - 1.25 mg/dL [facility] Glucose 112 (H) 70 - 105 mg/dL [facility] Calcium 8.5 8.4 - 10.2 mg/dL [facility] EGFR 25Comment: ESTIMATED GFR IS mL/min/1.73 sq m [facility] NOT ACCURATE CREATININE [facility] CLEARANCE IN PREDICTING GLOMERULAR FILTRATION RATE. ESTIMATED GFR IS NOT APPLICABLE FOR DIALYSIS PATIENTS. Specimen Blood Narrative Performed At Senior Medical Billing Specialist ID - KAVONG [facility] Specimen moderately [facility] Performing Organization Address City/[facility] Ph one Number [place] [address] [facility] * RHYTHM STRIP - SCAN (05/15/2019 4:11 [...] is n ot available. Performing Organization Address City/[facility] Ph one Number [facility] [address] [place], [place] * Bilirubin, direct (05/14/2019 9:30 AM CDT) Only the most recent of 4 results within the time period is included. Bilirubin, Direct 2.0 (H) 0.1 - 0.5 mg/dL [facility] Specimen Blood Performing Organization Address City/[facility] Ph one Number [address] [facility] * EKG-SCANNED (05/13/2019 11:03 AM CDT) Only [...] included. Phosphorus 3.4 2.3 - 4.7 mg/dL [facility] Specimen Blood Narrative Performed At Senior Medical Billing Specialist ID - ULYSSES [facility] Performing Organization Address City/State/[facility] Ph one Number [facility] [address] [place] [address] [address] [facility] * Magnesium (05/10/2019 5:22 AM CDT) Only the most recent of 22 results within the time period is included. Magnesium 1.9 1.6 - 2.6 mg/dL [facility] Specimen Blood Narrative Performed At Senior Medical Billing Specialist ID - ULYSSES Jang [facility] Performing Organization Address [facility] Ph one Number [address] 770 [facility] * NM Myocardial Perfusion Pet/CT (Rest & Stress) (05/09/2019 2:55 PM CDT) Specimen Narrative Performed At FINAL REPORT [employer] PROCEDURE: MYOCARDIAL PERFUSION PET HEAVENLY GING (Rest/Stress) CPT CODE: 96970 INDICATION: Assess symptoms/risk factor s of possible [...] Report Verified Date/Time: 0 16:05:35 [place] Location: [address] P327[facility] Reading Room Procedure Note Interface, External Ris In - 05/09/2019 4:07 PM CDT FINAL REPORT PROCEDURE: MYOCARDIAL PERFUSION PET IMAGING (Rest/Stress) CPT CODE: 40177 INDICATION: Assess symptoms/risk factors of possible CAD [...] Report Verified Date/Time: 05/09/2019 16:05:35 [place] Location: [address] Nuc Med [place] Room Performing Organization Address [facility] Ph one Number GE RIS * Treadmill [...] on 05/09/2019 3:07:42 PM Confirmed by MD Zamora Mahboob ([id number]) o n 05/15/2019 10:24:47 PM Procedure [...] on 05/09/2019 3:07:42 PM Confirmed by MD Zamora Mahboob ([id number]) on 05/15/2019 10:24:47 PM Performing Organization Address [facility] Ph one Number GE MUSE * Comprehensive metabolic panel (05/09/2019 5:35 AM CDT) Only the most recent of 8 results within the time period is included. Protein, Total 6.1Comment: Specimen slightly 6.0 - 8.3 gm/dL [facility] Albumin 2.9 (L)Comment: Specimen 3.5 - 5.0 g/dL [facility] hemolyzed [facility] Alkaline Phosphatase 116 40 - 150 U/L [facility] Total Bilirubin 4.1 (H)Comment: Specimen 0.2 - 1.2 mg/dL [facility] hemolyzed [facility] Sodium 131 (L) 136 - 145 meq/L [facility] Potassium 3.9Comment: Specimen slightly 3.5 - 5.1 meq/L [facility] Chloride 99 98 - 107 meq/L [facility] CO2 23 22 - 29 meq/L [facility] BUN 22 (H) 7 - 21 mg/dL [facility] Creatinine 4.22 (H)Comment: Specimen 0.57 - 1.25 mg/dL C [facility] slightly hemolyzed [facility] Glucose 108 (H) 70 - 105 mg/dL [facility] Calcium 8.1 (L) 8.4 - 10.2 mg/dL [facility] AST 30Comment: Specimen slightly 5 - 34 U/L C [facility] ALT 8Comment: Specimen slightly 6 - 55 U/L CH I [facility] EGFR 16Comment: ESTIMATED GFR IS mL/min/1.73 sq m [facility] NOT ACCURATE CREATININE [facility] CLEARANCE IN PREDICTING GLOMERULAR FILTRATION RATE. ESTIMATED GFR IS NOT APPLICABLE FOR DIALYSIS PATIENTS. Specimen Blood Narrative Performed At Senior Medical Billing Specialist YOLANDA - ULYSSES M [facility] Specimen slightly icteric [facility] Performing Organization Address City/State/Zipcode Ph one Number [facility] [address] [place], [place] [address] [facility] * TRANSFUSION SERVICE REPORT - SCAN (05/08/2019 5:52 PM CDT) Only the most recent of 20 results within the time period is included. Narrative Performed At This result has an attachment that is n ot available. * Limited 2D Echocardiogram (05/08/2019 11:40 AM CDT) Ejection Fraction [facility] Specimen Narrative Performed At Transthoracic Echocardiography Report (TTE) [facility] Demographics [facility] Patient Name INDRA GALVAN Date of Study 05/08/2019 YAN COREDRO [id number] Gender Male Visit Number [id number] Unknown [id number] Room Number 6213 Number Date of Birth1980 Referring Physician ROBBIE NEW Age38 year(s)Sonograp her Renny Yepez AnalystAlex Zamirian InterpretingBetty Williamson MD Procedure Type of Study TTE procedure:LIMITED [...] (>60%) . Left AtriumLA s ize is rfpn-op-zokdoaypok enlarged . Right VentricleNormal r ight ventricle [...] 05/08/2019 YAN CORDERO Gender Male Visit Number [id number] Race Unknown Room Number 6213 Number Date of 1980 Referring Physician ROBBIE NEW Age 38 year(s) Measurement Operator Renny Yepez [employer] Developer Nick Navarro Interpreting Physician MELVA Jackson Procedure [...] (>60%) . Left Atrium LA size is kqck-or-newizydohy enlarged . Right Ventricle Normal right ventricle [...] of Yasmin.: 3.23 cm Performing Organization Address City/State/Zipcode Ph one Number [facility] * Procalcitonin (05/08/2019 3:02 AM CDT) Only the most recent of 4 results within the time period is included. Procalcitonin 3.64 (H) <0.05 ng/mL [facility] Specimen Blood Narrative Performed At SEPSIS RISK (ng/mL) [facility] Low:0.05-0.50 [facility] Intermediate: 0.51-2.00 High: >=2.01 Performing Organization Address City/State/Zipcode Ph one Number [facility] [address] [place], [place] [address] MEDICAL [facility]ENTER * Manual Differential (05/08/2019 3:02 AM CDT) Only the most recent of 17 results within the time period is included. % Neutros 74 % [facility] % Lymphs 12 % [facility] % Monos 9 % [facility] % Eos 2 % [facility] % Baso 3 % [facility] # Neutros 8.66 (H) 1.78 - 5.38 K/ul [facility] # Lymphs 1.40 1.32 - 3.57 K/ul [facility] # Monos 1.05 (H) 0.30 - 0.82 K/uL [facility] # Eos 0.23 0.04 - 0.54 K/uL [facility] # Baso 0.35 (H) 0.01 - 0.08 K/uL [facility] Total Counted 100 [facility] Platelet Morphology Normal [facility] Toxic Granulation Present [facility] Polychromasia 2+ moderate [facility] Hypochromia 1+ few [facility] Anisocytosis 1+ few [facility] Macrocytes 1+ few [facility] Poikilocytes 1+ few [facility] Marlin Cells 1+ few [facility] Artifact Present [facility] Platelet Conc Adequate [facility] Specimen Blood Narrative Performed At Senior Medical Billing Specialist ID - Ivonne Gray [facility] User comments: [facility] Slide comments: Performing Organization Address [facility] one Number [facility] [address] [place] [address] [facility] * Prepare Leuko-Red RBC (05/07/2019 11:54 PM CDT) Only the most recent of 12 results within the time period is included. CROSSMATCH COMPATIBLE [place] Unit ABO B Pos [place] UNIT NUMBER [id number] [place] Status TX_TIMEINCHART [place] Blood Bank Product RED BLOOD CELLS [place] PRODUCT CODE [id number] [place] Specimen Other Performing Organization Address [facility] one Number [place] * [...] time period is included. Result No growth [facility] Gram Stain Result 1+ White blood cells seen [facility] Gram Stain Result No organisms seen [facility] Specimen Body Fluid Performing Organization Address [facility] one Number [address] 7703 [facility] * Cytology (05/07/2019 7:20 PM CDT) Case Report Medical Cytology [facility] Case: [id number] Authorizing Provider:Robbie New MD Collected: 05/07/2019 1920 Ordering Location: [place] [address] CCUReceived: 05/08/19 20 6705 Pathologist: Josh Yang MD Specimen:Pericardial DIAGNOSIS PERICARDIAL FLUID (CYTOSPINS): [facility] - NEGATIVE FOR MALIGNANCY [facility] Signing Pathologist Direct Phone Line: [phone] CPT Code(s) [address] [facility] CLINICAL DATA Pericardial effusion, [facility] cirrhosis [facility] SPECIMEN SOURCE PERICARDIAL FLUID [facility] GROSS DESCRIPTION 600 mls bloody fluid; 4 [facility] cytospins [facility] Collected: [id number] Received: [id number] STATEMENT OF ADEQUACY Satisfactory [facility] ALTH [facility] Gross assessment was [facility] performed at [place], Department of [facility] Pathology, [address] [place] [address], Technical component was [facility] performed at [place], Department of [facility] Pathology, [address] [place] [address], Professional component [facility] was performed at [place], Department of [facility] Pathology, [address] [place] [address], Specimen Body Fluid Narrative Performed At This result has an attachment that is n ot available. Performing Organization Address City/State/Zipcode Ph one Number [address] [address] MEDICAL CENTER * 2D Echo W/Doppler(CW/PW/Color) (05/07/2019 6:32 PM CDT) Ejection Fraction [facility] Specimen Narrative Performed At Transthoracic Echocardiography Report (TTE) [facility] Demographics [facility] Patient Name INDRA GALVAN Date of Study05/07/2019 YAN CORDERO [id number] Gender Male Visit Number [id number] Unknown [id number] Room [id number] Number Date of Birth1980 Barron sanchez Age38 year(s)Chayito Gutierreznth Shayd, Phys icianMD Fellow Indra zamora MD Procedure Type of [...] 05/07/2019 YAN CORDERO Gender Male Visit Number [id number] Race Unknown Room Number 6213 Number Date of 1980 Referring Robbie New MD Physician Age 38 year(s) Measurement Operator Aneudy Jerez Interpreting Physician MELVA Jackson Fellow nIdra Murry MD Procedure Type of Study TTE [...] Performing Organization Address City/State/Zipcode Ph one Number [facility] * Carotid doppler bilateral (05/06/2019 4:05 PM CDT) Ejection Fraction [facility] Specimen Impressions Performed At Right Impression [facility] 1. The internal carotid artery is within normal limit s. [facility] 2. The external carotid artery [...] At [facility] - Carotid Duplex Study [facility] Demographics [facility] Patient Name INDRA GALVAN Date of Study05/06/2019 RUSS VEE JR. [id number] Visit Number [id number] Gender Male Accession Number [id number] Date of Birth1980 [facility] Room [id number] PhysicianAGACNP SonographDagoberto Maki RVS Interpreting Josh Meeks Procedure Type of Study: [...] 05/06/2019 YAN CORDERO Age 38 Visit Number [id number] Gender Male Accession Number [id number] Date of 1980 Referring Karen Carranza Room Number 6213 Physician SARAH Measurement Operator Cb Maki RVS Interpreting Karen Blackwell Physician Procedure Type of Study: Cerebral: Carotid, [...] Performing Organization Address City/State/Zipcode Ph one Number [facility] [employer] [employer] [facility] * REPORT OF PROCEDURE - ENDOSCOPY URL (05/06/2019 1:43 PM CDT) Narrative Performed At This result has an attachment that is n ot available. 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[facility]s) [facility] Peoplesoft Developer Joanna Whitley Interpreting Pratik Rubin MD Procedure [...] 05/06/2019 YAN CORDERO Gender Male Visit Number [id number] Race Unknown Room Number 2454 Number Date of 1980 Referring Robbie New MD Physician Age 38 year(s) Measurement Operator Aneudy Jerez [employer] Developer Joanna Whitley Interpreting Pratik Alexis MD Procedure [...] TR Gradient: 30.26 mmHg Performing Organization Address [facility] one Number [facility] * Transfuse Leuko-Red RBC (05/06/2019 3:24 AM CDT) Only the most recent of 27 results within the time period is included. * Troponin I (05/05/2019 9:09 PM CDT) Only the most recent of 3 results within the time period is included. Troponin I <0.01 0.00 - 0.03 ng/mL [facility] Specimen Blood Narrative Performed At Troponin I (TnI) levels must be interpreted in the co ntext of the presenting [facility] symptoms and the clinical findings. Elevated TnI leve ls indicate myocardial [facility] damage, but are not specific for ischem ic heart disease. Elevated TnI levels are seen in patients with other cardiac con ditions (including myocarditis and congestive heart failure), and slight T nI elevations occur in patients with other conditions, including sepsis, tay al failure, acidosis, acute neurological disease, and persistent tachyarrhythmia . Senior Medical Billing Specialist ID - BS Performing Organization Address City/State/Zipcode Ph one Number [facility] [address] [place], [place] 7[address] [facility] * ECG 12 lead (05/05/2019 8:53 PM CDT) Only the most recent of 6 results within the time period is included. Specimen Narrative Performed At Ventricular Rate 128 BPM GE MUSE Atrial Rate 89 BPM QRS Duration 94 ms Q-T Interval 336 ms QTC Calculation(Bazett) 490 ms R [place] 151 degrees T [place] -88 degrees Atrial fibrillation Left posterior fascicular [...] leads Confirmed by MD KLINE JOSEPH P ([id number]) on 05/06/2019 6:34:11 AM Procedure Note Interface, External Ris In - 05/06/2019 6:34 AM CDT Ventricular Rate 128 BPM Atrial Rate 89 BPM QRS Duration 94 ms Q-T Interval 336 ms QTC Calculation(Bazett) 490 ms R [place] 151 degrees T [place] -88 degrees Atrial fibrillation Left posterior fascicular [...] leads Confirmed by MD KLINE JOSEPH P ([id number]) on 05/06/2019 6:34:11 AM Performing Organization Address [facility] Ph one Number GE MUSE * Hepatitis B surface antigen (05/05/2019 3:02 PM CDT) Only the most recent of 3 results within the time period is included. HBsAg Screen Nonreactive Nonreactive [facility] Specimen Blood Narrative Performed At Senior Medical Billing Specialist ID - BS [facility] Performing Organization Address [facility] Ph one Number [facility] [address] [place], [place] [phone] [place] [address] * Occult blood, stool (05/05/2019 12:07 PM CDT) Occult blood Negative Negative [facility] Specimen Stool Performing Organization Address [facility] one [place] [address] [address] [phone] [place] [address] * ABORH, manual (05/05/2019 9:51 AM CDT) ABO Grouping B [facility] Rh Factor POS [facility] Specimen Blood Performing Organization Address [facility] one [address] [address] [phone] [place] [address] * Iron, TIBC, % sat. (without ferritin) (05/05/2019 9:51 AM CDT) Only the most recent of 2 results within the time period is included. Iron 88.0 40.0 - 160.0 ug/dL [facility] TIBC 130 (L) 250 - 450 ug/dL [facility] Iron % Saturation 68 (H) 20 - 55 % [facility] Specimen Blood Narrative Performed At Senior Medical Billing Specialist ID - PIAYA L [facility] Performing Organization Address [facility] one Number [place] [address] [phone] [place] [address] * Reticulocyte count (05/05/2019 9:51 AM CDT) Only the most recent of 2 results within the time period is included. % Retic 2.3 (H) 0.5 - 1.8 % [facility] Specimen Blood Narrative Performed At Senior Medical Billing Specialist ID - [id number] [facility] Performing Organization Address [facility] one Number [place] [address] 0 [phone] [place] [address] * Direct AHG (LUMA)/Direct Antonia (05/05/2019 9:51 AM CDT) Direct AHG-IGG NEGATIVE [facility] Direct AHG-C3B, C3D NEGATVIE [facility] Specimen Blood Performing Organization Address [facility] Ph one Number [address] * Ferritin (05/05/2019 9:51 AM CDT) Only the most recent of 2 results within the time period is included. Ferritin 1,081 (H) 5 - 275 ng/mL [facility] Specimen Blood Narrative Performed At Senior Medical Billing Specialist ID - AAQUENTINID [facility] Performing Organization Address [facility] one [address] * Lactic acid, venous (05/05/2019 12:29 AM CDT) Only the most recent of 6 results within the time period is included. Lactate, Venous 2.6 (H) 0.5 - 2.2 mmol/L [facility] Specimen Blood Narrative Performed At Senior Medical Billing Specialist ID - PIAYA L [facility] Specimen slightly icteric [facility] Performing Organization Address [facility] one [place] [address] 0 [phone] [place] [address] * Type and screen, automated ([facility] and C[facility] only) (05/04/2019 8:42 PM CDT) Only the most recent of 8 results within the time period is included. ABO/RH AUTOMATED (BEAKER) B POSITIVE [facility] Ab Scrn NEGATIVE [facility] Specimen Blood Performing Organization Address [facility] Ph one [place] [phone] [place] [address] * Urinalysis w/Microscopic + Reflex to Culture (05/04/2019 7:53 PM CDT) Only the most recent of 6 results within the time period is included. Color, UA Yellow [facility] Clarity, UA Hazy [facility] Specific [place], UA 1.011 1.001 - 1.035 [facility] pH, UA 5.5 5.0 - 8.0 [facility] Protein, UA 100 mg/dL (A) Negative [facility] Glucose, UA 100 mg/dL (A) Negative [facility] Ketones, UA Negative Negative [facility] Bilirubin, UA Negative Negative [facility] Blood, UA Negative Negative [facility] Nitrite, UA Negative Negative [facility] Leukocytes, UA Negative Negative [facility] Urobilinogen, UA 0.2 0.2 - 1.0 mg/dL [facility] RBC, UA 7 /HPF [facility] WBC, UA 12 /HPF [facility] Bacteria, UA Occasional [facility] Mucus Rare [facility] Squam Epithel, UA 18 /HPF [facility] Hyaline Casts, UA 78 /LPF [facility] Casts 70 /LPF [facility] Crystals, Urine Occasional [facility] Yeast Moderate [facility] Specimen Source [facility] Specimen Urine Narrative Performed At Senior Medical Billing Specialist ID - [auto] [facility] Senior Medical Billing Specialist ID - tech [facility] Performing Organization Address City/State/[facility] one Number [address] 7[address] [facility] * Strep pneumoniae antigen (05/04/2019 7:53 PM CDT) Strep pneumoniae Antigen Presumptive negative for Presumptive negative for [facility] pneumococcal pneumonia - see pneumococcal pneumonia - [facility] comment see comment, Presumptive negative for pneumococcal meningitis - see comment Specimen Urine Narrative Performed At Presumptive negative for pneumococcal p neumonia, suggesting no current or recent [facility] pneumococcal infection. Infection due t o S. pneumoniae cannot be ruled out since [facility] the antigen present in the sample may b e below the detection limit of the test. Performing Organization Address [facility] one Number [place] [address] [facility] * Legionella antigen, urine (05/04/2019 7:53 PM CDT) Legionella Urine Antigen Negative - see commentComment: [facility] Negative for L. pneumophila [facility] serogroup 1 antigen, suggesting no recent or current infection with this serogroup. Legionellosis cannot be ruled out since other serogroups and species may cause disease. Specimen Urine Performing Organization Address [facility] one Number [address] 770 [facility] * Urine culture (05/04/2019 7:53 PM CDT) Only the most recent of 2 results within the time period is included. Result <10,000 col/mL skin chase [facility] Specimen Urine Performing Organization Address [facility] one Number [address] 770 [facility] * PT/aPTT (05/04/2019 7:29 PM CDT) Only the most recent of 4 results within the time period is included. Protime 18.9 (H) 11.9 - 14.2 seconds [facility] INR 1.6 <=5.9 [facility] PTT 40.7 (H) 22.5 - 36.0 seconds [facility] Specimen Blood Narrative Performed At Effective 07/24/2018: PT Reference Range Change [facility] New: 11.9-14.2Previous: 11.7-14.7 [facility] CE NTER RECOMMENDED COUMADIN/WARFARIN INR THERA PY RANGES STANDARD DOSE: 2.0-3.0Includes: PRO PHYLAXIS for venous thrombosis, systemic embolization; TREATMENT for venous thro mbosis and/or pulmonary embolus. HIGH RISK: Target INR is 2.5-3.5 for pa tients wiht mechanical heart valves. Performing Organization Address [facility] one [place] [address] [facility] * Blood Culture - Routine (Left Venipuncture) (05/04/2019 7:29 PM CDT) Only the most recent of 16 results within the time period is included. Result No growth in 5 days [facility] Specimen Blood Performing Organization Address [facility] one [place] [address] [phone] [place] [address] * B-type Natriuretic Factor (BNP) (05/04/2019 7:29 PM CDT) BNP 612 (H) 0 - 100 pg/mL [facility] Specimen Blood Narrative Performed At Senior Medical Billing Specialist ID - DB [facility] Performing Organization Address [facility] one [place] [address] [facility] * Rapid Influenza A&B Screen (05/04/2019 7:28 PM CDT) Rapid Influenza A Antigen Negative Negative, Inconclusi ve [facility] Rapid influenza B Antigen Negative Negative, Inconclusi ve [facility] Specimen Nasal Performing Organization Address City/State/Zipcode Ph one Number [facility] [address] [place], [place] [address] MEDICAL CENTER * CRITICAL CARE (05/04/2019 6:47 PM CDT) [...] included. Specimen Narrative Performed At FINAL REPORT [facility] EXAM: Chest one view COMPARISON: December 22, 2018 Clinical history: Weakness FINDINGS: There is persistent cardiomeg daniel. There is interval improvement in pulmonary edema. The rig ht internal jugular chest tunneled dialysis catheter appears unch anged in position. The regional osseous structures are unremar kable Signed: Victorino Haines MD Report Verified Date/Time: 0 18:08:08 Reading Location: [facility] B1 C013T Transit onnh Reading Room Procedure Note Interface, External Ris [...] Report Verified Date/Time: 05/04/2019 18:08:08 Reading Location: [facility] B1 C013T Transitional Reading Room Performing Organization Address City/State/Zipcode Ph one Number GE [facility] * US pelvis with doppler (02/03/2019 9:35 AM [facility]) Specimen Narrative Performed At FINAL REPORT [facility] Pelvic ultrasound dated 02/03/2019. COMMENT: Real-time transpelvic [...] iliac artery measures 1.0 cm. The left supervisor international reservations al iliac artery is not visualized. The bilateral common and external iliac veins are patent. IMPRESSION: Unremarkable pelvic vascula ture. Signed: Keith Garcia MD Report Verified Date/Time: 9 11:35:01 Reading Location: [address] Radiolo gy Reading Room Procedure Note Interface, External Ris In - 02/03/2019 11:37 AM [facility] FINAL REPORT Pelvic ultrasound dated 02/03/2019. COMMENT: [...] Report Verified Date/Time: 02/03/2019 11:35:01 Reading Location: [address] Radiology Reading Room Performing Organization Address City/[facility] Ph one Number GE [facility] * Vitamin B12 and Folate (01/18/2019 5:47 PM [facility]) Only the most recent of 2 results within the time period is included. Vitamin B12 1,988 (H) 213 - 816 pg/mL [facility] Folate 17.8 >=7.0 ng/mL [facility] Specimen Blood Performing Organization Address [facility] one Number [address] [address] [facility] * Lactate dehydrogenase (LDH) (01/18/2019 5:47 PM [facility]) Only the most recent of 3 results within the time period is included. LDH 192 125 - 220 U/L [facility] Specimen Blood Performing Organization Address [facility] one Number [address] [address] [facility] * Haptoglobin (01/18/2019 5:47 PM [facility]) Only the most recent of 3 results within the time period is included. Haptoglobin 14 14 - 258 mg/dL [facility] Specimen Blood Performing Organization Address [facility] one Number [address] [address] [facility] * Hemoglobin and hematocrit (01/18/2019 11:17 AM [facility]) Only the most recent of 3 results within the time period is included. Hemoglobin 7.5 (L) 13.7 - 17.5 GM/DL [facility] Hematocrit 23.0 (L) 40.1 - 51.0 % [facility] Specimen Blood Performing Organization Address [facility] one Number [address] [facility] * CBC (Hemogram only) (01/18/2019 2:51 AM [facility]) Only the most recent of 5 results within the time period is included. WBC 6.6 3.5 - 10.5 K/L [facility] RBC 2.11 (L) 4.63 - 6.08 M/L [facility] Hemoglobin 6.7 (L) 13.7 - 17.5 GM/DL [facility] Hematocrit 20.2 (L) 40.1 - 51.0 % [facility] MCV 95.7 (H) 79.0 - 92.2 fL [facility] MCH 31.8 25.7 - 32.2 pg [facility] MCHC 33.2 32.3 - 36.5 GM/DL [facility] RDW 17.3 (H) 11.6 - 14.4 % [facility] Platelets 74 (L) 150 - 450 K/CU MM [facility] MPV 10.1 9.4 - 12.4 fL [facility] nRBC 0 0 - 0 /100 WBC [facility] Specimen Blood Performing Organization Address City/State/Zipcode Ph one Number [facility] [address] [place], [place] [address] [facility] * HLA TYPING CII (01/16/2019 3:56 PM [facility]) HLA-DR AG1 15 [facility] HLA TESTING HLA-DR AG2 4 [facility] TESTING HLA-DR AG4-2 53 [facility] TESTING HLA-DR AG5-1 51 [facility] TESTING HLA-DQA1 AG 1-1 01 [facility] TESTING HLA-DQA1 AG 1-2 03 [facility] HLA TESTING HLA-DQB1 AG 1-1 6 [facility] HLA TESTING HLA-DQB1 AG 1-2 8 [facility] TESTING HLA-DPA1 AG 1-1 01 [facility] HLA TESTING HLA-DPA1 AG 1-2 01 [facility] TESTING HLA-DPB1 AG 1-1 02:01 [facility] TESTING HLA-DPB1 AG 1-2 04:02 [facility] TEST[facility] Specimen Blood Narrative Performed At Disclaimer: [facility] TESTING This test was developed and its perform ance characteristics determined by the [facility] Laboratory. It has not been cleared or approved by the U.S. Food and Drug Administration. The FDA has determined that such clearance or approval is not necessary. This test is used for clinic al purposes. It should not be regarded as investigational or for research. This l aboratory is certified under the Clinical Laboratory Improvement Amendments of 19 (CLIA-88) as qualified to perform high complexity clinical laboratory testing. Performing Organization Address [facility] one Number [facility] HLA TESTING ONE [facility] [address], MS: [id number], [place] [address] CLIA#[id number] CAP#[id number] UNOS#[id number] * HLA TYPING CI (01/16/2019 3:56 PM [facility]) HLA-A AG1 3 [facility] HLA TESTING HLA-A AG2 68 [facility] TESTING HLA-B AG1 7 [facility] HLA TESTING HLA-B AG2 35 [facility] HLA TESTING HLA-C AG1 7 [facility] HLA TESTING HLA-C AG2 7 [facility] HLA TESTING HLA-B BW1 6 [facility] HLA TESTING HLA-B BW2 6 [facility] TEST[facility] Specimen Blood Narrative Performed At Disclaimer: [facility] HLA TESTING This test was developed and its perform ance characteristics determined by the [facility] Laboratory. It has not been cleared or [...] complexity clinical laboratory testing. Performing Organization Address [facility] one Number [facility] HLA TESTING ONE [facility] [address], MS: [id number], [place] [address] CLIA#[id number] CAP#[id number] UNOS#[id number] * FLOW PRA CLASS II WITH REFLEX TO ANTIBODY SPECIFICITY (01/16/2019 3:56 PM [facility]) Flow Class II Percent 0 [facility] NG Positive Specimen Blood Narrative Performed At Disclaimer: [facility] HLA TESTING This test was developed and its perform ance characteristics determined by the [facility] Laboratory. It has not been cleared or [...] complexity clinical laboratory testing. Performing Organization Address [facility] one Number [facility] ONE Gregorio Pedroza, MS: [id number], [place] [address] CLIA#[id number] CAP#[id number] UNOS#[id number] * FLOW PRA CLASS I WITH REFLEX TO ANTIBODY SPECIFICITY (01/16/2019 3:56 PM [facility]) Flow Class I Percent 20 [facility] G Positive Specimen Blood Narrative Performed At Disclaimer: [facility] HLA TESTING This test was developed and its perform ance characteristics determined by the [facility] Laboratory. It has not been cleared or [...] complexity clinical laboratory testing. Performing Organization Address [facility] one Number [facility] ONE Gregorio Pedroza, MS: [id number], [place] [address] CLIA#[id number] CAP#[id number] UNOS#[id number] * AB SPECIFICITY CLASS I (01/16/2019 3:56 PM [facility]) AB Specificity Class I NO CLASS I ANTIBODY DETECTED [facility] WITH MFIs > 4000 Specimen Blood Narrative Performed At Disclaimer: [facility] This test was developed and its perform ance characteristics determined by the [facility] Laboratory. It has not been cleared or [...] complexity clinical laboratory testing. Performing Organization Address [facility] one Number [facility] HLA TESTING ONE Gregoriofaviola Pedroza, MS: [id number], [place] [address] CLIA#[id number] CAP#[id number] UNOS#[id number] * Alpha fetoprotein (AFP), tumor marker (01/16/2019 3:56 PM [facility]) Alpha-Fetoprotein 2.7 <10.0 ng/mL [facility] Specimen Blood Performing Organization Address [facility] one Number [place] [address] [facility] * Drug screen, urine, transplant (01/04/2019 5:39 PM [facility]) Specimen Urine Narrative Performed At This result has an attachment that is n ot available. Performing Organization Address [facility] one Number [address] [phone] * Drug screen, urine, comprehensive (01/04/2019 5:39 PM [facility]) Only the most recent of 2 results within the time period is included. Specimen Urine Narrative Performed At This result has an attachment that is n ot available. * Ethanol (01/04/2019 9:42 AM [facility]) Only the most recent of 2 results within the time period is included. Ethanol Lvl <10 <=10 mg/dL [facility] Specimen Blood Performing Organization Address [facility] one Number [place] [address] [facility] * Vancomycin level, random (12/26/2018 3:56 AM CDT) Only the most recent of 2 results within the time period is included. Vancomycin Rm 16.4 ug/mL [facility] Specimen Blood Narrative Performed At Reference Range: No Normals [facility] Performing Organization Address City/State/Zipcode Ph one Number [facility] [address] [place] [phone] MEDICAL CENTER * Venous doppler legs bilateral (12/24/2018 6:55 PM CDT) Ejection Fraction [facility] Specimen Impressions Performed At Right Impression [facility] 1. There is no deep venous obstruction in the common femoral, profunda [facility] femoral, femoral, popliteal, posterior tibial or peroneal [...] PV LAB - Lower Extremities DVT Study [facility] Patient Name INDRA GALVAN Date of Study12/24/2018 RUSS VEE JR. [id number] Visit Number [id number] Gender Male Accession Number [id number] Date of Birth1980 Vlad Naranjo [id number] Physician SonographerGregorio V. Shanthi RVS Interpreting Physician ConstantinoMD Procedure Type of [...] INDRA GALVAN Date of Study 12/24/2018 YAN CORDREO Age 38 Visit Number [id number] Gender Male Accession Number [id number] Date of 1980 Referring Audie Hoyt MD Room Number 7604 Physician Measurement Operator Cb Maki S Interpreting Karen Blackwell, Physician Procedure Type of Study: Veins: Lower Extremities [...] are measured in cm Performing Organization Address City/State/[facility] Ph one Number [facility] * HEMODIALYSIS INPATIENT (12/23/2018 11:25 PM CDT) [...] CDT) Specimen Narrative Performed At FINAL REPORT [facility] CT right lower extremity. CLINICAL HISTORY: Knee trauma, tenderne ss or effusion, initial exam (Age > 1y) TECHNIQUE: Contiguous axial images of t he right lower extremity without contrast with coronal and sagit chely reformations. This exam was performed according to the the [facility] dose optimization program which includes automated [...] Verified Date/Time: 12/23/2018 03:00:15 Performing Organization Address City/[facility] one Number GE [facility] * Vancomycin level, trough (12/22/2018 4:26 PM CDT) Vancomycin Tr 40.3 (HH) 10.0 - 20.0 ug/mL [facility] Specimen Blood Performing Organization Address [facility] one Number [address] [facility] * Fibrinogen (12/22/2018 3:55 AM CDT) Fibrinogen 195 (L) 225 - 434 mg/dl [facility] Specimen Blood Performing Organization Address [facility] one Number [address] [facility] * POC-Lactic Acid, Venous (12/21/2018 4:01 AM CDT) Only the most recent of 2 results within the time period is included. POC-Lactic Acid, Venous 1.6Comment: TESTED AT [facility] 0.9 - 1.7 mmol/L [address] [address] [facility] Specimen Blood Performing Organization Address [facility] one Number [address] [facility] * Ammonia (12/21/2018 2:48 AM CDT) Only the most recent of 2 results within the time period is included. Ammonia 65 18 - 72 mol/L [facility] Specimen Blood Performing Organization Address [facility]/Zipcode Ph one Number [facility] [address] [place], [place] [address] [facility] C[facility] * XR knee complete 4 views [...] Verified Date/Time: 12/21/2018 01:49:02 Performing Organization Address City/State/[facility] Ph one Number [facility] * CRITICAL CARE (12/21/2018 1:10 AM CDT) Narrative Performed At Víctor Dumont MD 12/244:23 AM Critical Care Performed by: Víctor Dumont MD Authorized by: Víctor Dumont M D Total critical care time: 60 minutes Critical care time was exclusive of sep arately billable procedures and treating other patients and teaching ti il. Critical care was necessary to treat or [...] AM CDT) % Neutros (manual) 80 % [facility] % Lymphs (manual) 6 % [facility] % Monos (manual) 7 % [facility] % Eos (manual) 4 % [facility] % Baso (manual) 0 % [facility] % Bands (manual) 3 0 - 10 % [facility] # Neutros (manual) 15.76 (H) 1.80 - 8.00 K/L [facility] # Lymphs (manual) 1.18 (L) 1.48 - 4.50 K/L [facility] # Monos (manual) 1.38 (H) 0.00 - 1.30 K/L [facility] # Eos (manual) 0.79 (H) 0.00 - 0.50 K/L [facility] # Baso (manual) 0.00 0.00 - 0.20 K/L [facility] # Bands (manual) 0.6 0.0 - 0.8 K/L [facility] Total Counted 100 [facility] Bands plus Segmented 16.35 [facility] Neutrophils [facility] WBC Morphology Normal [facility] Platelet Morphology Normal [facility] TH [facility] Anisocytosis 2+ moderate [facility] Marlin Cells 2+ moderate [facility] Poikilocytes 1+ few [facility] Specimen Blood Performing Organization Address City/State/Zipcode Ph one Number [facility] [address] [place], [place] [address] MEDICAL CENTER * IR Tunneled Catheter Insertion (11/14/2018 12:38 PM CDT) Specimen Narrative Performed At FINAL REPORT [facility] Conversion of a nontunneled to tunneled dialysis catheter. History: Renal failure. Modality: Fluoroscopy. Sedation: Moderate sedation was adminis tered. 0.5 mg of Versed and 50 mcg of fentanyl IV was used for mode rate sedation monitored under my direction. Total intra-service time of sedation [id number]. The patient's vital signs were monitore d throughout the procedure and recorded in the patient's medical recor d by the nurse. Boat Hand:Regis Ortega MD. Rural Mail Carrier:None. Approach: Right internal jugular vein Estimated blood [...] throughout the procedure by a nurse, melva d remained stable.The patient tolerated the procedure well [...] Signed: Regis Ortega MD Report Verified Date/Time: 9 10:01:43 Reading Location: [place] [id number] Angio Bod y Reading Room Procedure Note [...] the patient's medical record by the nurse. Boat Hand: Regis Ortega MD. Rural Mail Carrier: None. Approach: Right internal jugular vein Estimated [...] by blunt dissection. A 19 cm right Swazi Duraflow 2 catheter was brought through the [...] Report Verified Date/Time: 11/15/2018 10:01:43 Reading Location: [facility] P048 Angio Body Reading Room Performing Organization Address City/State/Zipcode Ph one Number [facility] * XR chest 2 views (11/12/2018 9:38 PM CDT) Specimen Narrative Performed At FINAL REPORT [facility] Chest, two views. MEDICAL HISTORY: Cough. COMPARISON [...] Report Verified Date/Time: 9 23:58:30 Reading Location: [facility] C013W Consult Reading Room Procedure Note Interface, External [...] Report Verified Date/Time: 11/12/2018 23:58:30 Reading Location: [address] Consult Reading Room Performing Organization Address [facility] Ph one Number [facility] * Protein, random urine (11/12/2018 1:55 AM CDT) Protein, Urine 122 (H) 0 - 14 mg/dL [facility] Specimen Urine Performing Organization Address [facility] Ph one Number [place] [address] [facility] * Creatinine, random urine (11/12/2018 1:55 AM CDT) Only the most recent of 2 results within the time period is included. Creatinine, Ur 225.8 mg/dL [facility] Specimen Urine Narrative Performed At Reference Range: No Normals [facility] Performing Organization Address [facility] Ph one Number [address] [facility] * REPORT OF PROCEDURE - ENDOSCOPY URL (11/10/2018 2:04 PM CDT) Narrative Performed At This result has an attachment that is n ot available. * Tissue Exam (11/10/2018 1:25 PM CDT) Only the most recent of 2 results within the time period is included. Case Report Surgical Pathology [facility] Case: [id number] Authorizing Provider:Devyn Lantigua MDCollected: 11/10/2018 1325 Ordering Location: [address] Received: 11/11/2018 0818 Service Pathologist: Be Arenas MD Specimens: A) - Polyp, Colon - Sigmoid, sigmoid polyp bx B) - Cecum, cecum ulcer bx ADDENDUM Immunostains for HSV1, HSV2, [facility] and CMV performed on block [address] are negative. DIAGNOSIS PART A SIGMOID COLON POLYP, [facility] POLYPECTOMY: [facility] HYPERPLASTIC POLYP. PART B CECUM BIOPSY FOR SUSPECTED ULCER: NONSPECIFIC ACTIVE COLITIS WITH ULCERATION AND REGENERATIVE FEATURES. NEGATIVE FOR GRANULOMAS, DYSPLASIA, OR INVASIVE CARCINOMA. NO MORPHOLOGIC OR IMMUNOPHENOTYPIC EVIDENCE OF LYMPHOMA. SEE DIAGNOSTIC COMMENT. IMMUNOSTAINS FOR VIRAL MARKERS PENDING, ADDENDUM TO FOLLOW. Signing Pathologist Direct Phone Line: [phone] COMMENT PART B: Immunohistochemical [facility] studies performed on block [address] demonstrate the lymphoid population to be positive for CD20 positive B cells and CD3/CD5 positive T cells. There is no aberrant co-expression of CD20 and CD5. Cyclin D1 is negative. There is no morphologic or immunophenotypic evidence of lymphoma. CPT Code(s) 38089f3, 68097, 28669f2 [facility] CLINICAL HISTORY Colon polyps [facility] SPECIMEN SOURCE A. Sigmoid polyp biopsy. B. [facility] Cecum ulcer biopsy [facility] GROSS DESCRIPTION Part A. Received in formalin [facility] labeled with the patient's [facility] name, accession number and "polyp, colon-sigmoid" is a 0.2 cm guajardo soft tissue fragment, which is submitted in toto in A1. Part B. Received in formalin labeled with the patient's name, accession number and "cecum" are four irregular guajardo soft tissue fragments ranging 0.1-0.2 cm, which are submitted in toto in B1. CG/ew MICROSCOPIC DESCRIPTION Performed. [facility] SPECIAL STUDIES The interpretation of this [facility] case included the use of [facility] immunohistochemistry or special stains. BLOCK B1- HSV1, HSV2, CMV, CD20, CD3, CD5, CYCLIN D1 Control Slides Examined: In-house known positive controls were evaluated along with the test tissue. These control slides run alongside of the patients sample show appropriate staining. Internal positive and negative controls when available are evaluated Immunohistochemistry technical testing was performed at [facility], Pathology Laboratory where it was developed and [...] Cecum structure (body structure) Performing Organization Address City/State/[facility] Ph one Number [place] [phone] [place] [address] [facility] * HEMODIALYSIS INPATIENT (11/09/2018 3:25 PM CDT) [...] 4:20 AM CDT) Yari Antigen Titer 1:2 [facility] Specimen Blood Performing Organization Address City/[facility] Ph one Number [facility] [address] [place], [place] [address] [facility] * Yari antigen with reflex to titer (11/08/2018 4:20 AM CDT) Yari Antigen Positive [facility] Specimen Blood Performing Organization Address City/[facility] Ph one Number [facility] [address] [place], [place] [address] [facility] * CT chest with high resolution/ild (11/08/2018 12:16 AM CDT) Specimen Narrative Performed At FINAL REPORT [employer] CT of the chest, without contrast Clinical [...] both lungs, overall significantly improved compared to Apr2018. Given history of ARDS, these findings likely reflect a r esolving or organizing process, although cannot entirely exclu de superimposed atypical infection, inflammation or drug reactio n. Cirrhosis and splenomegaly. Small amoun t of ascites Signed: Alan Rodriguez MD Report Verified Date/Time: 9 11:29:31 [place] Location: [facility] C013X Ortho Co nsult [place] Room Procedure Note Interface, External [...] Report Verified Date/Time: 11/08/2018 11:29:31 [place] Location: [facility] B1 C013X Ortho Consult [place] Room Performing Organization Address City/[facility] Cent[facility]ode Ph one Number GE RIS * Urinalysis w/Microscopic (11/05/2018 8:47 PM CDT) Color, UA Dark Yellow [facility] Clarity, UA Clear [facility] Specific Rio, UA 1.012 1.001 - 1.035 [facility] pH, UA 6.0 5.0 - 8.0 [facility] Protein, UA 20 mg/dL (A) Negative [facility] Glucose, UA Negative Negative [facility] Ketones, UA Negative Negative [facility] Bilirubin, UA Positive (A) Negative [facility] Blood, UA Negative Negative [facility] Nitrite, UA Negative Negative [facility] Leukocytes, UA Negative Negative [facility] Urobilinogen, UA 3.0 (H) 0.2 - 1.0 mg/dL [facility] RBC, UA 0 /HPF [facility] WBC, UA 1 /HPF [facility] Bacteria, UA Occasional [facility] Mucus Rare [facility] Specimen Source Urine, Clean Catch [facility] Specimen Urine Performing Organization Address City/[facility] Cent[facility]ode Ph one Number [phone] * Hepatitis B core antibody, total (11/05/2018 3:32 PM CDT) Hep B Core Total Ab Nonreactive Nonreactive [facility] Specimen Blood Performing Organization Address City/[facility] Ph one Number [address] 0 [phone] [place] [address] * Hepatitis B surface antibody (11/05/2018 3:32 PM CDT) Hep B S Ab <8.0 <8.0 mIU/mL [facility] Specimen Blood Performing Organization Address [facility] Ph one Number [address] * IR non-tunneled dialysis catheter insertion (11/05/2018 12:10 PM CDT) Specimen Narrative Performed At FINAL REPORT [employer] PROCEDURE: Non-tunneled dialysis cathet er placement Procedural [...] A sterile dressing was applied. Catheter placed: Datamarson XL Catheter size (Swazi): 14 Catheter length (cm): 15 Catheter flush: [...] Report Verified Date/Time: 9 19:49:40 [place] Location: [facility] B1 P048 Angio Bod y [place] [...] applied. Catheter placed: Schon XL Catheter size (Swazi): 14 Catheter length (cm): 15 Catheter flush: Heparin (1000 units/mL) Catheter securement technique: Non-absorbable suture Contrast Contrast agent: None Radiation Dose Fluoroscopy time (minutes): 1.6 Reference air kerma (mGy): 9.9 Additional Details Additional description of procedure: None Equipment details: None Specimens removed: None Estimated blood loss (mL): Less than 10 Standardized report: [id number] Attestation Signer name: Arondotty Louis I attest that I was present for the entire procedure. I reviewed the stored images and agree with the report as written. Signed: Mi Chiang MD Report Verified Date/Time: 11/05/2018 19:49:40 [place] Location: [facility] P048 Angio Body [place] Room Performing Organization Address City/[facility] Ph one Number RIS * Sodium, random urine (10/30/2018 8:42 PM CDT) Only the most recent of 2 results within the time period is included. Sodium Urine 34 meq/L [facility] Specimen Urine Narrative Performed At Reference Range: No Normals [facility] Performing Organization Address [facility] one Number [place] [address] [facility] * US paracentesis (10/27/2018 3:07 PM CDT) Specimen Narrative Performed At FINAL REPORT [employer] Document [employer] Paracentesis dated 10/27/2018 Procedure: Ultrasound-guided paracentes is. Preprocedure diagnosis: Ascites Postprocedure diagnosis: Ascites Conscious sedation: None. Radiologist: Keith Garcia M.D. Rural Mail Carrier: None Anesthesia: 1% Xylocaine mixed with sod ium bicarbonate local anesthesia. Technique: After obtaining informed con sent, ultrasound-guided paracentesis was performed under usual sterile technique. Using a 5 sami drainage catheter, puncture was made in the right lower quadrant abdomen. Approximately 2000 cc of clear yellowish fluid was removed. Patient tolerated the procedur e well without complication. Complication: None Graft/Implant: None Estimated Blood Loss: None Impression: Ultrasound-guided paracente sis. Signed: Keith Garcia MD Report Verified Date/Time: 9 16:58:17 [place] Location: [facility] B1 C013Y CT Body [place] Room Procedure Note Interface, External Ris In - 10/27/2018 5:00 PM CDT FINAL REPORT Paracentesis dated 10/27/2018 Procedure: Ultrasound-guided paracentesis. Preprocedure diagnosis: Ascites Postprocedure diagnosis: Ascites Conscious sedation: None. Radiologist: Keith Garcia M.D. Rural Mail Carrier: None Anesthesia: 1% Xylocaine mixed with sodium bicarbonate local anesthesia. Technique: After obtaining informed consent, ultrasound-guided paracentesis was performed under usual sterile technique. Using a 5 sami drainage catheter, puncture was made in the right lower quadrant abdomen. Approximately 2000 cc of clear yellowish fluid was removed. Patient tolerated the procedure well without complication. Complication: None Graft/Implant: None Estimated Blood Loss: None Impression: Ultrasound-guided paracentesis. Signed: Keith Garcia MD Report Verified Date/Time: 10/27/2018 16:58:17 [place] Location: [facility] C013Y CT Body [place] Room Performing Organization Address City/State/Zipcode Ph one Number GE RIS * Body fluid cell count with differential (10/27/2018 3:00 PM CDT) Appearance Slightly Hazy (A) Clear [facility] Color Shagufta (A) Colorless, Straw [facility] RBCs 309 (H) <=1 /cu mm [facility] Adjusted WBC Count 147 (H) <=5 /cu mm [facility] Lining Cells 54 (H) <=1 /cu mm [facility] % Segs 10 % [facility] % Lymphs 18 % [facility] % Monos 72 % [facility] % Eos 0 % [facility] % Baso 0 % [facility] Container Body Fluid EDTA Tube [facility] Specimen Body Fluid Performing Organization Address City/[facility] Centercode Ph one Number [address] [address] MEDICAL CENTER * US abdomen limited (10/26/2018 4:21 AM CDT) Specimen Narrative Performed At FINAL REPORT GE RIS ULTRASOUND ABDOMEN LIMITED HISTORY: Ascites, assess for [...] Report Verified Date/Time: 9 13:11:32 [place] Location: [address] Transiti onal [place] Room Procedure Note [...] Report Verified Date/Time: 10/26/2018 13:11:32 [place] Location: [address] Transitional [place] Room Performing Organization Address [facility] Ph one Number GE RIS * Peripheral Blood Smear - Path Review (10/21/2018 5:01 AM CDT) RBC Morphology Polychromasia [facility] WBC Morphology Toxic Granulation [facility] Pathologist Review Cell counts confirmed. [facility] Pathologist: Samina Arteaga M.D. [facility] (electronic signature) [facility] Specimen Blood Performing Organization Address [facility] Centercode Ph one Number [facility] [address] [place], [place] [address] [facility] CENTER * 2D Echo W/Doppler(CW/PW/Color) (10/20/2018 1:30 PM CDT) Ejection Fraction [facility] Specimen Narrative Performed At Transthoracic Echocardiography Report (TTE) [facility] Demographics [facility] Patient NameINDRA GALVAN Date of Study10/20/2018 YAN Daniel Gender Male Visit [id number] Race Unknown Room [id number] Number Date of 1980 ReferringMuaurea plummer Age 37 year(s) SonographerAbed Lowell José Arnett nMD Procedure Type of Study TTE procedure:2DECHO [...] 10/20/2018 YAN CORDERO Gender Male Visit Number [id number] Race Unknown Room Number 743 Number Date of 1980 Referring Minal Taylor Physician Age 37 year(s) Measurement Operator Abed Lowell Interpreting Physician MELVA Hanson Procedure Type [...] LVOT CI: 3.97 l/min/m^2 Performing Organization Address City/State/[facility] Ph one Number [facility] * REPORT OF PROCEDURE - ENDOSCOPY URL (10/19/2018 11:05 AM CDT) Narrative Performed At This result has an attachment that is n ot available. * REPORT OF PROCEDURE - ENDOSCOPY URL (10/19/2018 9:17 AM CDT) Narrative Performed At This result has an attachment that is n ot available. * Urea Nitrogen, random urine (10/18/2018 6:43 PM CDT) Urea Nitrogen, Ur 120 mg/dL [facility] Specimen Urine Narrative Performed At Reference Range: No Normals [facility] Performing Organization Address City/State/Zipcode Ph one Number [facility] [address] [place], [place] [address] MEDICAL CENTER * US doppler (10/17/2018 5:12 PM CDT) Specimen Narrative Performed At FINAL REPORT [employer] Ultrasound of the Abdomen and Duplex Do ppler. TECHNIQUE: Sonographic assessment of th e abdomen was performed as well as a detailed duplex Doppler asses sment of the liver including spectral wave forms and color-flow anal ysis of the major vascular structures. Clinical History: elevated liver enzyme s, hyperbilirubinemia, history of fatty liver. Comparison study: CTA dated June 25 019 and ultrasound dated June 23, 2018. Findings: The liver is markedly echogen ic in nature limiting assessment. It measures 26.4 cm in bernabe th, significantly enlarged. There is no evidence of intrahepatic bi liary dilatation. The CBD is not seen. The main portal vein diameter is 1.5 cm. Cholelithiasis is seen with no sonographic evidence of ac salamatof cholecystitis. The spleen measures 14.6 cm, enlarged. [...] Report Verified Date/Time: 9 17:43:28 [place] Location: [facility] C013W Consult [place] Room Procedure Note Interface, External [...] Report Verified Date/Time: 10/17/2018 17:43:28 [place] Location: [facility] C0W Consult [place] Room Performing Organization Address City/State/Zipcode Ph one Number [employer] * US abdomen complete (10/17/2018 5:12 PM CDT) Specimen Narrative Performed At FINAL REPORT [employer] Ultrasound of the Abdomen and Duplex Do [...] seen with no sonographic evidence of ac salamatof cholecystitis. The spleen measures 14.6 cm, enlarged. [...] Report Verified Date/Time: 9 17:43:28 [place] Location: [facility] C013W Consult [place] Room Procedure Note Interface, External [...] Report Verified Date/Time: 10/17/2018 17:43:28 [place] Location: [facility] B1 C013W Consult [place] Room Performing Organization Address City/State/Zipcode Ph one Number GE RIS after 10/17/2018 Insurance Payer Benefit Subscriber ID Type Phone Address Plan / Group BLUE CROSS/[employer] BCBS PPO xxxxxxxxxxxx PPO [phone] [address] [place] [address] CHOICE [phone] [address] [address] amily (Home) [place] [phone] Advance Directives For more information, please contact: [facility] [address] [place] [address] Date Inactivated Comments Code Status Date Activated [...]
--- OUTSIDE RECORDS SUMMARY | 2019-10-18 09:29 | XMS REPORT | Clinical Summary ---
Author Author [facility] Organization [facility] Address Unknown Phone Unavailable Care Team Providers Care Road Roller Engineer Name Role Phone PCP Unavailable Allergies No Known Allergies Medications No known medications Active Problems Problem Noted Date Sinus tachycardia 01/28/2018 Hypertension 01/28/2018 Prediabetes 01/28/2018 Alcoholic hepatitis without ascites Acute kidney injury Family History Medical History Relation Name Comments [...] Date Last Done Comments IMM Influenza Seasonal 11/27/2019 Oct to April (>/= 19 yrs) Results Not on fileafter 10/17/2018 Insurance Type Payer Benefit Subscriber ID Effective Phone Address Plan / Dates Group BC/BS BC/BS PPO xxxxxxxxxxxx 2017-P [phone] [id number] [place] [address] Advance Directives Date Inactivated Comments Code Status Date Activated 01/28/2018 3:20 PM Full Code 01/24/2018 10:54 PM
[2019-10-18 09:31] LABS: ALBUMIN 2.4 g/dL (3.5-5.0); ALBUMIN/GLOBULIN RATIO 0.7 (0.8-2.0); ANION GAP 16.7 mmol/L (8-16); CALCIUM 8.2 mg/dL (8.4-10.2); CREATININE, SERUM 1.92 mg/dL (0.72-1.25)
[2019-10-18 09:34] LABS: POTASSIUM 2.7 mmol/L (3.5-5.1)
--- OUTSIDE RECORDS SUMMARY | 2019-10-18 09:36 | XMS REPORT | Continuity of Care Document ---
Author Author [facility] t Organization [facility] t Address [address] [place] [address] Phone Unavailable Care Team Providers Care Consumer Affairs Specialist Name Role Phone JOSE VOSS Trudi PCP Jose Alejandro ANIMAL PHYSIOLOGY TEACHER, Michael Attphys Unavailable KHLOE BOX Attphys Unavailable Anastacio Killian Attphys Unavailable Anaya MURPHY, Kin Radford Attphys Unavailable Carlos A FRYE MPH, Laura Merchant Attphys [phone] Dorothy Boss Attphys Unavailable Elton SMITH, Katie Attphys Unavailable Laura Schwartz Attphys Unavailable Tim MURPHY, Brannon Mccartney Attphys Unavailable Steven ANIMAL PHYSIOLOGY TEACHER, Laine Carreon Attphys Unavailable George MURPHY, Emily Attphys Unavailable Mabel MURPHY, Nay Attphys Unavailable Haley FRYE, Sanjana Valencia Attphys Grzegorz FRYE, Danii Shepard Attphys DANII LANTIGUA Attphys Unavailable Sea SMITH, Abby Attphys Unavailable Marissa Mixon Attphys Unavailable Ady MURPHY, Katie Attphys Unavailable Silvano MURPHY, Delores Attphys Unavailable Anthony INDUSTRIAL SPRAYPAINTER, Mcclure Abel Attphys Kenisha Gordillo Attphys Unavailable Darvin WICK, Charmaine Howe Attphys Lj FRYE, Iman Geronimo Attphys Malou FRYE, Erin Mir Attphys Elsie FRYE, Robina Cummins Attphys [phone] Connie Christensen Attphys Unavailable Eduardo FRYE, Robbie Attphys Dea FRYE, Karey Mcmahan Attphys Sheikh MELVA, Melisa Lamb Attphys Ede RN, Radha Attphys Unavailable IMAN CALHOUN Attphys Unavailable Juan Antonio RN, Servando Attphys Unavailable Alvarez RN, Xu Attphys Unavailable Jere RN, Martha Attphys Unavailable Joel FRYE, Gracie Avery Attphys Laura Emery Attphys Unavailable Gracie MALDONADO ROSAMARIA Attphys Unavailable System, Not In Provider Attphys Unavailable Jaime FRYE, Hiwot Tinoco Attphys Corine FRYE, Melisa Belcher Attphys Eliceo FRYE, Lorna Hardin Attphys Hiwot JOHNSON Attphys Unavailable Kendal FRYE, Valeriy Campohish Attphys [phone] OZIEL VALDEZ Attphys Unavailable José Miguel FRYE, Oziel Christie Attphys [phone] Reggie FRYE, Yasmin Fermin Attphys Kenisha Rojas Attphys Unavailable VENTURA BREEN Attphys Unavailable Julia FRYE, Ventura Renee Attphys Brandon FRYE, Zenon Kaufman Attphys [phone] Evelina FRYE, Audie Attphys Caden FRYE, Melisa Attphys Hemalatha Alfredo Attphys Unavailable BRANDON, ZENON KAUFMAN Attphys Unavailable Kurt FRYE, Coreen Flanagan Attphys Kin Cavazos Attphys Unavailable Samina Silva CRNA Attphys [phone] Jose FRYE, Vinay Juan Attphys Chaim FRYE, Jazzmine Estrella Attphys [phone] Isak FRYE, Genna Begum Attphys Anton DUQUEICA Attphys Unavailable MANKIDY, INDRA OWENS Attphys Unavailable BOCCARDO, KIET Attphys Unavailable KHLOE BOX Admphys Unavailable ERIN MEADOWS Admphys Unavailable KHADERI, LORNA HARDIN Admphys Unavailable Yasmin PAREDES Admphys Unavailable CADEN, MELISA Admphys Unavailable BRANDON, ZENON KAUFMAN Admphys Unavailable MANKIDY, INDRA BABITH Admphys Unavailable BOCCARDO, KIET Admphys Unavailable Payers Payer Name Policy Type Policy Number Effective Date Expiration Date S gideon BLUE CROSS/BLUE SHIELDBCBS PPO POS EPO C [id number] [facility] [id number], [place] [address] xxxxxxxxxxxx [facility] Blue Cross [facility] Ppo [id number] 2018 00:00:00 [facility] Problems Condition Name Condition Details Condition Category Status Onset Date Resolution Date Last Treatment Date Treating Clinician Comments Source Sepsis Sepsis Disease Active 2019-05-04 00:00:00 [facility] Symptomatic anemia Symptomatic anemia Disease Active 2019-01-17 00:00:0 0 [facility] Tubular adenoma Tubular adenoma Disease Active 2019-01-17 00:00:00 [facility] Rash Rash Disease Active 2019-01-17 00:00:00 [facility] Screening for cancer Screening for cancer Disease Active 00:00:00 [facility] Alcohol use disorder, mild, abuse Alcohol use disorder, mild, ab use Disease Active 2019-01-17 00:00:00 [facility] Pedal edema Pedal edema Disease Active 2019-01-17 00:00:00 [facility] Hepatic encephalopathy Hepatic encephalopathy Disease Active 2019-01-17 00:00:00 [facility] Alcoholic hepatitis Alcoholic hepatitis Disease Active 2019-01-17 00:00 :00 [facility] Alcoholic cirrhosis Alcoholic cirrhosis Disease Active 2018-12-21 00:00 :00 [facility] Sepsis, unspecified organism Sepsis, unspecified organism Disease Active 2018-12-21 00:00:00 [facility] ESRD (end stage renal disease) ESRD (end stage renal disease) Disea se Active 2018-12-21 00:00:00 [facility] Liver failure Liver failure Disease Active 2018-10-16 00:00:00 [facility] Acute blood loss anemia Acute blood loss anemia Disease Active 2018-06-26 00:00:00 [facility] GIB (gastrointestinal bleeding) GIB (gastrointestinal bleeding) Dis ease Active 2018-06-21 00:00:00 [facility] Hemorrhagic shock Hemorrhagic shock Disease Active 2018-06-21 00:00:00 [facility] Hyperbilirubinemia Hyperbilirubinemia Disease Active 2018-06-01 00:00:0 0 [facility] Sinus tachycardia Sinus tachycardia Disease Active 2018-01-28 00:00:00 [facility] Prediabetes Prediabetes Disease Active 2018-01-28 00:00:00 [facility] Jaundice Jaundice Problem Active [facility] Pneumonia Pneumonia Problem Active [facility] Obesity Obesity Disease Active [facility] Fatty liver Fatty liver Disease Active [facility] Dark emesis Dark emesis Disease Active [facility] Hypotension due to hypovolemia Hypotension due to hypovolemia Disease Active [facility] Acute renal failure with tubular necrosis Acute renal failure with tubular necrosis Disease Active [facility] ESRD (end stage renal disease) on dialysis ESRD (end s tage renal disease) on dialysis Disease Active [facility] ESRD on hemodialysis ESRD on hemodialysis Disease Active [facility] History of Past Illness Condition Name Condition Details Condition Category Status Onset Date Resolution Date Last Treatment Date Treating Clinician Comments Source Respiratory center failure Respiratory center failure Disease Resolved 2018-06-01 00:00:00 2018-12-23 00:00:00 2018-12-23 18:37:49 [facility] Acute respiratory failure with hypoxia Acute respiratory ericka lure with hypoxia Disease Resolved 2018-06-01 00:00:00 2018-12-23 00:00:00 2018-12-23 18:37:3 7 [facility] ARDS (adult respiratory distress syndrome) ARDS (adult respiratory distress syndrome) Disease Resolved 2018-06-01 00:00:00 2018-12-23 00:00:00 2 18:37:31 [facility] Acute kidney injury Acute kidney injury Disease Resolved 2018-05 00:00:00 2018-12-23 00:00:00 2018-12-23 18:37:33 [facility] Hyponatremia Hyponatremia Disease Resolved 2018-06-01 00:00:00 2 [facility] 00:00:00 2018-12-23 18:37:52 [facility] Hypertension Hypertension Disease Resolved 2018-12-23 00: 00:00 2018-12-23 18:37:55 [facility] Allergies, Adverse Reactions, Alerts Allergy Name Allergy Type Status Severity Reaction(s) Onset Date Inacti ve Date Treating Clinician Comments Source Prednisone Drug Intolerance Active 2019-05-04 00:00:00 [facility] Ceftriaxone Drug Allergy Active Rash 2019-01-06 00:00:00 [facility] Family History Family Member Diagnosis Comments Start Date Stop Date Source Natural brother No Known Problem [facility] Natural father Hypertension [facility] Natural mother Hypertension [facility] Natural son No Known Problem [facility] Social History Social Habit Start Date Stop Date Quantity Comments Source Sex Assigned At [facility] Alcohol Comment 2019-02-04 00:00:00 2019-02-04 00:00:00 quit in 9 [facility] Alcohol intake 2018-01-25 00:00:00 2018-01-25 00:00:00 Current drinker of alcohol (finding) [facility] Smoking Status Start Date Stop Date Source Never smoker [facility] Medications Ordered Medication Name Filled Medication Name Start Date Stop Da te Current Medication? Ordering Clinician Indication Dosage Frequency Signature (SIG) Comments Components Source Pantoprazole Sodium (Protonix) 40 Mg TABLET. Pantopr azole Sodium (Protonix) 40 Mg TABLET. 2019-09-27 10:11:00 Yes 40 Before Kindra kfast [facility] traZODone (DESYREL) 50 MG tablet 2019-06-17 10:52:35 Yes 50mg QD Take 50 mg by mouth nightly. [facility] furosemide (LASIX) 10 mg/mL solution 2019-05-13 12:01:00 Ye s QD Take by mouth daily. [facility] colchicine (COLCRYS) 0.6 mg tablet 2019-05-11 00:00:00 202 23:59:00 No .6mg QD Take 1 tablet (0.6 mg total) by mouth bere martino for 11 days. [facility] FUROSEMIDE ORAL 2019-05-10 14:52:11 2019-05-10 00:00:00 No 80mg QD Take 80 mg by mouth daily . [facility] pantoprazole (PROTONIX) 40 MG tablet 2019-05-10 00:00:00 Ye s 40mg Q.5D Take 1 tablet (40 mg total) by mouth 2 (two) times daily. [facility] UNKNOWN 2019-02-04 09:37:27 2019-02-04 00:00:00 No QD daily Pt states he takes a medication to suppress his alcohol cravings . [facility] UNKNOWN 2019-02-04 09:37:25 2019-02-04 00:00:00 No naus ea as needed Pt takes dissolving tablet for nausea, unsure of name . [facility] thiamine 100 MG tablet 2019-02-04 00:00:00 Yes Portal hypertension (HCC) 100mg QD Take 1 tablet (100 mg total) by mouth daily. [facility] hydrOXYzine (ATARAX) 25 MG tablet 2019-01-16 00:00:00 2018 23:59:00 No Pruritus 25mg Take 1 tablet (2 5 mg total) by mouth every 6 (six) hours as needed for Itching for up to 30 days. I [facility] traMADol (ULTRAM) 50 mg tablet 2019-01-06 00:00:00 Yes TK 1 T PO Q 8 H PRN P [facility] diphenhydrAMINE-zinc acetate (BENADRYL EXTRA STRENGTH) 2-0.1 % cream 2019-01-06 00:00:00 2020-01-06 23:59:00 No Apply topically 3 (three) times daily as needed for Itching. [facility] thiamine 100 MG tablet 2018-12-27 00:00:00 2019-02-04 00:00:00 N o 100mg QD Take 1 tablet (100 mg total) by mouth daily. [facility] traZODone (DESYREL) 50 MG tablet 2018-12-26 09:59:23 2018-11 00:00:00 No 50mg QD Take 50 mg by mouth nightly. [facility] midodrine (PROAMATINE) 10 MG tablet 2018-12-26 09:59:2 3 2018-12-26 00:00:00 No 10mg Q.[id number] Take 10 mg by mouth 3 (th ree) times daily. [facility] ondansetron (ZOFRAN-ODT) 4 MG disintegrating tablet 2018-12-26 09:59:23 2018-12-26 00:00:00 No 4mg Take 4 mg by mouth every 6 (six) hours as needed for Nausea. [facility] lactulose (CHRONULAC) 20 gram/30 mL solution 2018-12-26 00:00:00 Yes 30g Q.[id number] Take 45 mLs (30 g total) by mouth 3 ( three) times daily. [facility] r midodrine (PROAMATINE) 10 MG tablet 2018-12-26 00:00:00 Yes 10mg Q.[id number] Take 1 tablet (10 mg total) by mouth 3 ( three) times daily. [facility] phytonadione, vitamin K1, (MEPHYTON) 5 mg tablet 2018-12-26 00:00:00 2019-02-04 00:00:00 No 5mg QD Take 1 tablet (5 mg total) by mouth daily. [facility] ciprofloxacin HCl (CIPRO) 500 MG tablet 00:00:00 2018-12-29 23:59:00 No 500mg QD Take 1 tablet (500 mg total) by mouth daily for 3 days. [facility] heparin injection 1,000 units/mL for IV bolus/dialysis lock 2018-11-15 00:00:00 2018-11-15 23:59:00 No 1000U 1-3.6 mLs (1,000-3,600 Units total) by Intra-Catheter route once as needed (hemodialysis acute catheter packing) for up to 1 dose. [facility] traZODone (DESYREL) 100 MG tablet 2018-11-07 09:2018 00:00:00 No 100mg QD Take 100 mg by mouth nightly. [facility] lactulose (CHRONULAC) 20 gram/30 mL solution 201 11-05-11 09::2018-11-07 00:00:00 No 20g Q.[id number] Ta ke 20 g by mouth 3 (three) times daily Titrate to 3 BM's/day . [facility] furosemide (LASIX) 20 MG tablet 2018-11-07 09: 00:00:00 No 40mg QD Take 40 mg by mouth daily. [facility] folic acid (FOLVITE) 1 MG tablet 2018-11-07 00:00:00 2019-10 23:59:00 No 1mg QD Take 1 tablet (1 mg total) by mouth daily. [facility] pantoprazole (PROTONIX) 40 MG tablet 2018-11-07 00:00: 00 2019-05-10 00:00:00 No 40mg QD Take 1 tablet (40 mg total) by mouth [facility] [facility] lactulose (CHRONULAC) 20 gram/30 mL solution 201 11-05-11 00:00:00 2018-12-26 00:00:00 No 30g Q.[id number] Ta ke 45 mLs (30 g total) by mouth 3 (three) times daily. [facility] ipratropium (ATROVENT) 0.02 % nebulizer solution 2018-11-07 00:00:00 2018-12-26 00:00:00 No .5mg Take 2.5 mLs (0.5 mg total) by nebulization every 6 (six) hours as needed. [facility] levoFLOXacin (LEVAQUIN) IVPB 250 mg in dextrose 5% (D5W) 50 mL 2018-11-07 00:00:00 2018-12-26 00:00:00 No 250mg Q24H Inject 50 mLs (250 mg total) intravenously daily. [facility] melatonin 3 mg Tab tablet 2018-11-07 00:00:00 2018-12-26 00:00:0 0 No 6mg Take 2 tablets (6 mg total) by mouth every night as needed. [facility] octreotide (SANDOSTATIN) 100 mcg/mL Soln 2018-10 00:00:00 2018-12-26 00:00:00 No 100ug Q.[id number] In ject 1 mL (100 mcg total) subcutaneously 3 (three) times daily. [facility] phytonadione 0.8 mg/mL Soln ORAL solution 11-07 00:00:00 2018-12-26 00:00:00 No 5mg QD Take 6.25 mLs (5 mg total) by m outh daily. [facility] thiamine (B-1) 100 mg/mL injection 2018-11-07 00:00:00 201 11-05-30 00:00:00 No 100mg QD Inject 1 mL (100 mg total) intravenously daily. [facility] traZODone (DESYREL) 50 MG tablet 2018-11-07 00:00:00 2018-11 23:59:00 No 50mg Take 1 tablet (50 mg total) by mouth every night as needed for up to 30 days. [facility] midodrine (PROAMATINE) 5 MG tablet 2018-11-07 00:00:00 201 11-06-11 23:59:00 No 5mg Q.[id number] Take 1 ta blet (5 mg total) by mouth 3 (three) times daily for 30 days. [facility] guaiFENesin (ROBITUSSIN) 100 mg/5 mL syrup 11-07 00:00:00 2018-11-17 23:59:00 No 200mg Take 10 mLs (2 00 mg total) by mouth every 4 (four) hours as needed for Congestion for up to 10 days. [facility] benzonatate (TESSALON) 100 MG capsule 2018-11-07 00:00 :00 2018-11-14 23:59:00 No 100mg Q.[id number] Take 1 capsule (100 mg total) by mouth 3 (three) times daily for 7 days. [facility] multivitamin (THERAGRAN) tablet 2018-07-10 00:00:00 23:59:00 No 1{tbl} QD Take 1 tablet by mouth daily. [facility] furosemide (LASIX) 10 mg/mL injection 2018-07-10 00:00 :00 2018-11-07 00:00:00 No 20mg Inject 2 mLs (2 0 mg total) intravenously daily as needed (significant edema) Patient with hypotension, on midodrine. Need to watch BPs. [facility] Folic Acid Folic Acid Yes 1 Daily [facility] Hydrochlorothiazide Hydrochlorothiazide Yes 25 Daily [facility] Midodrine Hcl Midodrine Hcl Yes [facility] Nifedipine (Nifedipine Er) 30 Mg TAB.ER.24 Nifedipine (Nifedipine Er) 30 Mg TAB.ER.24 Yes 30 Twice A Day [facility] Pantoprazole Sodium (Protonix) 40 Mg TABLET. Pantopr azole Sodium (Protonix) 40 Mg TABLET.DR Parra [facility] Trazodone Hcl Trazodone Hcl Yes 50 Bedtime [facility] Levofloxacin (Levaquin) 500 Mg TABLET Levofloxacin (Levaquin) 50 0 Mg TABLET 2018-05-27 00:00:00 No 500 Daily [facility] Olmesartan Med/Amlodipine/Hctz (Tribenzor 40-5-12.5 Mg Tablet) 1 Each TABLET Olmesartan Med/Amlodipine/Hctz (Tribenzor 40-5-12.5 Mg Tablet) 1 Each TABLET 2018-05-27 00:00:00 No 1 Daily [facility] Pantoprazole Sodium (Protonix) 40 Mg TABLET. Pantopr azole Sodium (Protonix) 40 Mg TABLET. 2018-05-27 00:00:00 No 40 Daily [facility] Vital Signs Vital Name Observation Time Observation Value Comments Source Body Temperature 2019-09-27 17:18:00 99.0 [degF] [facility] BMI (Body Mass Index) 2019-09-27 09:42:00 26.6 kg/m2 [facility] Weight 2019-09-26 13:55:00 196 [lb_av] [facility] Systolic blood pressure 2019-05-13 10:59:00 115 mm[Hg] [facility] Diastolic blood pressure 2019-05-13 10:59:00 69 mm[Hg] [facility] Heart rate 2019-05-13 10:59:00 90 /min [facility] Body temperature 2019-05-13 10:59:00 36.94 Dariel [facility] Respiratory rate 2019-05-13 10:59:00 18 /min [facility] Body height 2019-05-13 10:59:00 180.3 cm [facility] Body weight Measured 2019-05-13 10:59:00 86.229 kg [facility] BMI 2019-05-13 10:59:00 26.51 kg/m2 [facility] Oxygen saturation in Arterial blood by Pulse oximetry 05-12 10:59:00 100 /[facility] Procedure Date / Time Performed Performing Clinician Afshan e US abdomen complete 2019-09-26 00:00:00 [facility] MR ABDOMEN WITH & WITHOUT IV CONTRAST 2019-05-23 12:08:00 StribErik jansen [facility] BASIC METABOLIC PANEL (7) 2019-05-23 09:03:00 Devyn Lantigua [facility] HEPATIC FUNCTION PANEL 2019-05-23 09:03:00 Devyn Lantigua [facility] PROTHROMBIN TIME/INR 2019-05-23 09:03:00 Devyn Lantigua [facility] CBC W/PLT COUNT & AUTO DIFFERENTIAL 2019-05-23 09:03:00 Alfred Lantigua [facility] RHYTHM STRIP - SCAN 2019-05-15 16:11:24 Provider, Default Zita manjarrez [facility] MISCELLANEOUS LAB ORDER 2019-05-14 09:30:00 Placido Zimmerman [facility] PROTHROMBIN TIME/INR 2019-05-14 09:30:00 Devyn Lantigua [facility] HEPATIC FUNCTION PANEL 2019-05-14 09:30:00 Devyn Lantigua [facility] BASIC METABOLIC PANEL (7) 2019-05-14 09:30:00 Devyn Lantigua [facility] BILIRUBIN, DIRECT 2019-05-14 09:30:00 Devyn Lantigua [facility] CBC W/PLT COUNT & AUTO DIFFERENTIAL 2019-05-14 09:30:00 Alfred Lantigua [facility] REPORT OF PROCEDURE - ENDOSCOPY SCAN 2019-05-13 11:03:24 Pro vider, Default Scanning [facility] RHYTHM STRIP - SCAN 2019-05-12 15:11:01 Provider, Default Zita manjarrez [facility] REPORT OF PROCEDURE - ENDOSCOPY SCAN 2019-05-12 15:10:56 Pro vider, Default Scanning [facility] CARDIAC CATH REPORT - SCAN 2019-05-12 15:10:54 Provider, Default Scanning [facility] MAGNESIUM 2019-05-10 05:22:00 Carlos Lyons [facility] PHOSPHORUS 2019-05-10 05:22:00 Carlos Lyons [facility] NM MYOCARDIAL PERFUSION PET/CT (REST & STRESS) 2019-05-09 14:55: 00 Robbie New [facility] TREADMILL TOLERANCE(NON-NUCLEAR TREADMILL) 2019-05-09 14:24: 27 Unknown, Hl7 Doctor [facility] HEMODIALYSIS INPATIENT 2019-05-09 07:47:24 Rosamaria Maldonado [facility] MAGNESIUM 2019-05-09 05:35:00 SerenaCarlos peacock [facility] PHOSPHORUS 2019-05-09 05:35:00 Serena, [facility] COMPREHENSIVE METABOLIC PANEL 2019-05-09 05:35:00 Kate Guido [facility] CBC W/PLT COUNT & AUTO DIFFERENTIAL 2019-05-09 05:35:00 Kate Truong [facility] TRANSFUSION SERVICE REPORT - SCAN 2019-05-08 17:52:07 Provid er, Default Scanning [facility] LIMITED 2D ECHOCARDIOGRAM 2019-05-08 11:40:31 Robbie New [facility], [facility] PROCALCITONIN 2019-05-08 03:02:00 Carlos Lyons [facility] MAGNESIUM 2019-05-08 03:02:00 Carlos Lyons [facility] PHOSPHORUS 2019-05-08 03:02:00 Carlos Lyons [facility] BASIC METABOLIC PANEL (7) 2019-05-08 03:02:00 Idris Murry ph [facility] CBC W/PLT COUNT & AUTO DIFFERENTIAL 2019-05-08 03:02:00 Indra Munguia [facility] (CELLAVISION MANUAL DIFF) 2019-05-08 03:02:00 Idris Murry ph [facility] HEMODIALYSIS INPATIENT 2019-05-08 00:48:36 Milleranton Rosamaria AntonFredy [facility] PREPARE LEUKO-REDUCED RBC 2019-05-07 23:54:00 Zamzam Correa [facility] PERIPHERAL VASCULAR REPORT - SCAN 2019-05-07 21:12:27 Provid er, Default Scanning [facility] PERICARDIOCENTESIS 2019-05-07 20:33:00 Eduardo [facility] BODY FLUID CULTURE + GRAM STAIN 2019-05-07 19:20:14 [facility]-05-07 19:20:00 [facility] 2[facility] W/ DOPPLER (CW/PW/COLOR) 2019-05-07 18:32:29 Coreen New [facility] TRANSFUSION SERVICE REPORT - SCAN 2019-05-07 17:52:09 Provid er, Default Scanning [facility] COMPREHENSIVE METABOLIC PANEL 2019-05-07 06:42:00 [place] [facility] CBC W/PLT COUNT & AUTO DIFFERENTIAL 2019-05-07 06:42:00 Isacc Meadows [facility] (CELLAVISION MANUAL DIFF) 2019-05-07 06:42:00 [place] [facility] PREPARE LEUKO-REDUCED RBC 2019-05-06 23:54:00 Juanpablo Calhoun [facility] TRANSFUSION SERVICE REPORT - SCAN 2019-05-06 18:02:23 Provid er, Default Scanning [facility] CAROTID DOPPLER BILATERAL 2019-05-06 16:05:00 Karen Carranza [facility] REPORT OF PROCEDURE - ENDOSCOPY URL 2019-05-06 13:43:19 Zainab Alves [facility] 2D ECHO W/ DOPPLER (CW/PW/COLOR) 2019-05-06 13:06:03 Coreen New [facility] UPPER ENDOSCOPY 2019-05-06 10:00:00 Zainab Alves [facility] COMPREHENSIVE METABOLIC PANEL 2019-05-06 04:52:00 Angelic Lomeli [facility] MAGNESIUM 2019-05-06 04:52:00 [facility] CBC W/PLT COUNT & AUTO DIFFERENTIAL 2019-05-06 04:52:00 Kin Lomeli [facility] (CELLAVISION MANUAL DIFF) 2019-05-06 04:52:00 Angelic Lomeli [facility] TRANSFUSE LEUKO-REDUCED RED BLOOD CELLS 2019-05-06 03:24:02 Madeline [facility] CBC W/PLT COUNT & AUTO DIFFERENTIAL 2019-05-05 21:10:00 Madeline [facility] BASIC METABOLIC PANEL (7) 2019-05-05 21:09:00 Madeline [facility] I [facility] MAGNESIUM 2019-05-05 21:09:00 [facility] TROPONIN I 2019-05-05 21:09:00 [facility] ECG 12-LEAD 2019-05-05 20:53:39 Unknown, 7 [facility] ECG 12-LEAD 2019-05-05 20:52:05 Unknown, 7 [facility] ECG 12-LEAD 2019-05-05 19:34:00 Unknown, 7 [facility] ECG 12-LEAD 2019-05-05 19:32:27 Unknown, 7 [facility] TRANSFUSION SERVICE REPORT - SCAN 2019-05-05 17:52:36 Provid er, Default Scanning [facility] HEMODIALYSIS INPATIENT 2019-05-05 15:16:18 Rosamaria Maldonado [facility] HEPATITIS B SURFACE ANTIGEN 2019-05-05 15:02:00 Christopher Maldonado Fredy [facility] OCCULT BLOOD, STOOL 2019-05-05 12:07:[address] [facility] COMPREHENSIVE METABOLIC PANEL 2019-05-05 09:51:[address] [facility] RETICULOCYTE COUNT 2019-05-05 09:51:[address] [facility] BILIRUBIN, DIRECT 2019-05-05 09:51:00 [facility] S [facility] FERRITIN 2019-05-05 09:51:[address] [facility] IRON, TIBC, % SAT. (WITHOUT FERRITIN) 2019-05-05 09:51:[address] [facility] DIRECT AHG (LUMA)/DIRECT ANTONIA 2019-05-05 09:51:[address] [facility] ABORH, MANUAL 2019-05-05 09:51:[address] [facility] CBC W/PLT COUNT & AUTO DIFFERENTIAL 2019-05-05 09:51:00 Kin Lomeli [facility] TRANSFUSE LEUKO-REDUCED RED BLOOD CELLS 2019-05-05 08:35:39 Lj [facility] TRANSFUSE LEUKO-REDUCED RED BLOOD CELLS 2019-05-05 01:08:39 Lj [facility] LACTIC ACID, VENOUS 2019-05-05 00:29:00 Lj [facility] ECG 12-LEAD 2019-05-05 00:27:17 Unknown, Hl7 [facility] TYPE AND SCREEN, AUTOMATED 2019-05-04 20:42:00 Juanpablo Calhoun [facility] URINE CULTURE 2019-05-04 19:53:00 Lj [facility] URINALYSIS W/ REFLEX URINE CULTURE 2019-05-04 19:53:00 Terrence Calhoun [facility] LEGIONELLA URINE ANTIGEN 2019-05-04 19:53:00 Lj [facility] BLOOD CULTURE 2019-05-04 19:29:00 Lj [facility] MAGNESIUM 2019-05-04 19:29:00 Lj [facility] PHOSPHORUS 2019-05-04 19:29:00 Lj [facility] B-TYPE NATRIURETIC FACTOR (BNP) 2019-05-04 19:29:00 Lj [facility] PT/APTT 2019-05-04 19:29:00 Lj, Juanpablo [facility] TROPONIN I 2019-05-04 19:29:00 Lj, [facility] COMPREHENSIVE METABOLIC PANEL 2019-05-04 19:29:00 Lj, Juanpablo [facility] [place] LACTIC ACID, VENOUS 2019-05-04 19:29:00 Lj, [facility] PROCALCITONIN 2019-05-04 19:29:00 Lj, [facility] CBC W/PLT COUNT & AUTO DIFFERENTIAL 2019-05-04 19:29:00 Lj, Emigdio spangler [facility] RAPID INFLUENZA A&B SCREEN 2019-05-04 19:28:00 Lj, Juanpablo Sha franklin [facility] CRITICAL CARE 2019-05-04 18:47:50 Lj, [facility] XR CHEST 1 VIEW PORTABLE/BEDSIDE 2019-05-04 18:05:00 Lj, Anderson kenisha [facility] BASIC METABOLIC PANEL (7) 2019-04-07 09:34:00 Devyn Lantigua [facility] HEPATIC FUNCTION PANEL 2019-04-07 09:34:00 Devyn Lantigua [facility] PROTHROMBIN TIME/INR 2019-04-07 09:34:00 Devyn Lantigua [facility] CBC W/PLT COUNT & AUTO DIFFERENTIAL 2019-04-07 09:34:00 Alfred Lantigua [facility] BASIC METABOLIC PANEL (7) 2019-03-14 10:32:00 Devyn Lantigua [facility] HEPATIC FUNCTION PANEL 2019-03-14 10:32:00 Devyn Lantigua [facility] PROTHROMBIN TIME/INR 2019-03-14 10:32:00 Devyn Lantigua [facility] CBC W/PLT COUNT & AUTO DIFFERENTIAL 2019-03-14 10:32:00 Alfred Lantigua [facility] BILIRUBIN, DIRECT 2019-03-04 10:00:00 Devyn Lantigua [facility] COMPREHENSIVE METABOLIC PANEL 2019-03-04 10:00:00 Devyn Lantigua [facility] CBC W/PLT COUNT & AUTO DIFFERENTIAL 2019-03-04 10:00:00 Alfred Lantigua [facility] PROTHROMBIN TIME/INR 2019-03-04 09:55:00 Devyn Lantigua [facility] BILIRUBIN, DIRECT 2019-02-03 10:13:00 Perri Fenton [facility] COMPREHENSIVE METABOLIC PANEL 2019-02-03 10:13:00 Perri Fenton [facility] PROTHROMBIN TIME/INR 2019-02-03 10:12:00 Perri Fenton [facility] CBC W/PLT COUNT & AUTO DIFFERENTIAL 2019-02-03 10:12:00 Eliceo Perribeatriz Butterfield [facility] US PELVIS WITH DOPPLER 2019-02-03 09:35:00 Rosamaria Maldonado [facility] RHYTHM STRIP - SCAN 2019-01-21 11:42:13 Provider, Default [facility] RHYTHM STRIP - SCAN 2019-01-20 16:02:13 Provider, Default [facility] RHYTHM STRIP - SCAN 2019-01-20 16:02:12 Provider, Default [facility] TRANSFUSION SERVICE REPORT - SCAN 2019-01-19 18:00:57 Provid er, Default Scanning [facility] PREPARE LEUKO-REDUCED RBC 2019-01-18 23:55:00 Perri Fenton [facility] TRANSFUSION SERVICE REPORT - SCAN 2019-01-18 18:03:07 Provid er, Default Scanning [facility] FERRITIN 2019-01-18 17:47:00 Leonidas Elaine [facility] IRON, TIBC, % SAT. (WITHOUT FERRITIN) 2019-01-18 17:47:00 Leonidas Gutierrze [facility] LACTATE DEHYDROGENASE (LDH) 2019-01-18 17:47:00 Leonidas Elaine [facility] HAPTOGLOBIN 2019-01-18 17:47:00 Chele Leonidas [facility] VITAMIN B12 AND FOLATE 2019-01-18 17:47:00 Leonidas Elaine [facility] ULTRAFILTRATION HD CRRT 2019-01-18 15:13:25 Garcia [facility] HEMOGLOBIN AND HEMATOCRIT 2019-01-18 11:17:00 Ye Pool [facility] CBC (HEMOGRAM ONLY) 2019-01-18 02:51:00 Ye Pool Benji [facility] TRANSFUSE LEUKO-REDUCED RED BLOOD CELLS 2019-01-17 23:33:32 Ye Pool Benji [facility] TRANSFUSE LEUKO-REDUCED RED BLOOD CELLS 2019-01-17 22:39:14 Ye Pool Benji [facility] HEMODIALYSIS INPATIENT 2019-01-17 21:29:31 [facility] TYPE AND SCREEN, AUTOMATED 2019-01-17 15:35:00 Perri Fenton [facility] HLA TYPING CI 2019-01-16 15:56:00 [facility] HLA TYPING CII 2019-01-16 15:56:00 Rosamaria Maldonado [facility] FLOW PRA CLASS I WITH REFLEX TO ANTIBODY SPECIFICITY 2018-12 15:56:00 Rosamaria Maldonado [facility] FLOW PRA CLASS II WITH REFLEX TO ANTIBODY SPECIFICITY 2018-02 15:56:00 Rosamaria Maldonado [facility] BASIC METABOLIC PANEL (7) 2019-01-16 15:56:00 Carley Boston [facility] HEPATIC FUNCTION PANEL 2019-01-16 15:56:00 Carley Boston [facility] PROTHROMBIN TIME/INR 2019-01-16 15:56:00 Carley Boston [facility] ALPHA FETOPROTEIN (AFP), TUMOR MARKER 2019-01-16 15:56:00 Carley Boston [facility] AB SPECIFICITY CLASS I 2019-01-16 15:56:00 Rosamaria Maldonado [facility] CBC W/PLT COUNT & AUTO DIFFERENTIAL 2019-01-16 15:56:00 Frederick Boston [facility] RHYTHM STRIP - SCAN 2019-01-08 09:10:11 Provider, Default Scanni loki [facility] TRANSFUSION SERVICE REPORT - SCAN 2019-01-06 17:50:45 Provid er, Default Scanning [facility] MISCELLANEOUS LAB ORDER 2019-01-06 06:01:00 Erik De Leon [facility] CBC (HEMOGRAM ONLY) 2019-01-06 06:01:00 [facility] BASIC METABOLIC PANEL (7) 2019-01-06 06:01:00 Jeny Paredes V. [facility] MAGNESIUM 2019-01-06 06:01:00 [facility] PROT[facility] TIME/INR 2019-01-06 06:01:00 [facility] HEPATIC FUNCTION PANEL 2019-01-06 06:01:00 [facility] PREPARE LEUKO-REDUCED RBC 2019-01-05 23:54:00 Vimal Breen [facility] TRANSFUSION SERVICE REPORT - SCAN 2019-01-05 17:50:34 Provid er, Default Scanning [facility] CBC (HEMOGRAM ONLY) 2019-01-05 04:30:00 Jeny Paredes V[facility] BASIC METABOLIC PANEL (7) 2019-01-05 04:30:00 Jeny Paredes V. [facility] MAGNESIUM 2019-01-05 04:30:00 Jeny [facility] HEPATIC FUNCTION PANEL 2019-01-05 04:30:00 Rj Paredeswaco Yasmin [facility] PROTHROMBIN TIME/INR 2019-01-05 04:30:00 Jeny Paredes V. [facility] PREPARE LEUKO-REDUCED RBC 2019-01-04 23:54:00 Pratik Valdez [facility] TRANSFUSION SERVICE REPORT - SCAN 2019-01-04 17:53:27 Provid er, Default Scanning [facility] DRUG SCREEN, URINE, COMPREHENSIVE 2019-01-04 17:39:00 Laine Roper [facility] DRUG SCREEN, URINE, TRANSPLANT 2019-01-04 17:39:00 JacquelinKai bauer [facility] TRANSFUSE LEUKO-REDUCED RED BLOOD CELLS 2019-01-04 14:09:28 Vimal Breen [facility] ETHANOL 2019-01-04 09:42:00 Jacquelin [facility] BASIC METABOLIC PANEL (7) 2019-01-04 04:07:00 Vimal Breen [facility] HEPATIC FUNCTION PANEL 2019-01-04 04:07:00 Vimal Breen ose [facility] CBC W/PLT COUNT & AUTO DIFFERENTIAL 2019-01-04 04:07:00 Hatf ieVimal quiroz [facility] TRANSFUSE LEUKO-REDUCED RED BLOOD CELLS 2019-01-04 01:55:28 Pratik Valdez [facility] TYPE AND SCREEN, AUTOMATED 2019-01-03 21:56:00 Pratik Valdez [facility] BASIC METABOLIC PANEL (7) 2019-01-03 21:54:00 Pratik Valdez [facility] HEPATIC FUNCTION PANEL 2019-01-03 21:54:00 Pratik Valdez [facility] PT/APTT 2019-01-03 21:54:00 Pratik Valdez [facility] CBC W/PLT COUNT & AUTO DIFFERENTIAL 2019-01-03 21:54:00 Kin Valdez [facility] REPORT OF PROCEDURE - ENDOSCOPY SCAN 2018-12-31 12:52:49 Pro vider, Default Scanning [facility] TRANSFUSION SERVICE REPORT - SCAN 2018-12-27 18:02:58 Provid er, Default Scanning [facility] RHYTHM STRIP - SCAN 2018-12-27 16:04:17 Provider, Default Scanni [facility] PREPARE LEUKO-REDUCED RBC 2018-12-26 23:54:00 Audie Hoyt CH, I [facility] TRANSFUSION SERVICE REPORT - SCAN 2018-12-26 18:02:50 Provid er, Default Scanning [facility] VANCOMYCIN LEVEL, RANDOM 2018-12-26 03:56:00 Maurice Stern [facility] BASIC METABOLIC PANEL (7) 2018-12-26 03:56:00 [facility] MAGNESIUM 2018-12-26 03:56:00 [facility] PHOSPHORUS 2018-12-26 03:56:00 [facility] HAPTOGLOBIN 2018-12-26 03:56:00 Audie Hoyt [facility] HEPATIC FUNCTION PANEL 2018-12-26 03:56:00 Jacquelin Kai [facility] CBC W/PLT COUNT & AUTO DIFFERENTIAL 2018-12-26 03:56:00 Sharad shook [facility] PERIPHERAL VASCULAR REPORT - SCAN 2018-12-25 21:23:01 Provid er, Default Scanning [facility] TRANSFUSE LEUKO-REDUCED RED BLOOD CELLS 2018-12-25 11:12:26 Audie Huerta [facility] TYPE AND SCREEN, AUTOMATED 2018-12-25 08:51:00 Audie Hoyt [facility] BLOOD CULTURE 2018-12-25 08:25:00 Sydney Vasquez [facility] BASIC METABOLIC PANEL (7) 2018-12-25 03:46:00 [facility]UM 2018-12-25 03:46:00 [facility] PHOSPHORUS 2018-12-25 03:46:00 [facility] HEPATIC FUNCTION PANEL 2018-12-25 03:46:00 Placido Zimmerman [facility] PROTHROMBIN TIME/INR 2018-12-25 03:46:00 Placido Zimmerman [facility] LACTATE DEHYDROGENASE (LDH) 2018-12-25 03:46:00 Kai Roper [facility] CBC W/PLT COUNT & AUTO DIFFERENTIAL 2018-12-25 03:46:00 Ciccarel bouchra [facility] VENOUS DOPPLER LEGS BILATERAL 2018-12-24 18:55:00 Audie Hoyt [facility] TRANSFUSION SERVICE REPORT - SCAN 2018-12-24 18:02:36 Provid er, Default Scanning [facility] BASIC METABOLIC PANEL (7) 2018-12-24 03:18:00 [facility] MAGN[facility]UM 2018-12-24 03:18:00 [facility] PHOS[facility]US 2018-12-24 03:18:00 [facility] CBC W/PLT COUNT & AUTO DIFFERENTIAL 2018-12-24 03:18:00 Ciccarel bouchra [facility] PREPARE LEUKO-REDUCED RBC 2018-12-23 23:54:00 Omero Moura [facility] HEMODIALYSIS INPATIENT 2018-12-23 23:25:30 Adri Soler [facility] CBC (HEMOGRAM ONLY) 2018-12-23 20:04:00 Maurice Stern [facility] TRANSFUSION SERVICE REPORT - SCAN 2018-12-23 18:01:02 Provid er, Default Scanning [facility] BASIC METABOLIC PANEL (7) 2018-12-23 04:01:00 [facility] MAGNESIUM 2018-12-23 04:01:00 [facility] PHOSPHORUS 2018-12-23 04:01:00 [facility] VANCOMYCIN LEVEL, RANDOM 2018-12-23 04:01:00 Shmuel Sosa [facility] HEPATITIS B SURFACE ANTIGEN 2018-12-23 04:01:00 RyderAdri Robi ash [facility] CBC W/PLT COUNT & AUTO DIFFERENTIAL 2018-12-23 04:01:00 Ciccarel bouchra [facility] PREPARE LEUKO-REDUCED RBC 2018-12-22 23:54:00 Víctor Breen [facility] CT LOWER EXTREMITY WITHOUT IV CONTRAST RIGHT 2018-12-22 21:0 4:00 Omero Moura [facility] TRANSFUSION SERVICE REPORT - SCAN 2018-12-22 18:01:22 Provid er, Default Scanning [facility] VANCOMYCIN LEVEL, TROUGH 2018-12-22 16:26:00 Shmuel Sosa [facility] CBC (HEMOGRAM ONLY) 2018-12-22 16:26:00 Christy New [facility] TRANSFUSE LEUKO-REDUCED RED BLOOD CELLS 2018-12-22 11:21:40 Omero Hernandes [facility] XR CHEST 1 VIEW PORTABLE/BEDSIDE 2018-12-22 05:29:00 [facility]OL[facility] (7) 2018-12-22 03:56:[facility] MAGNESIUM 2018-12-22 03:56:00 [facility] PHOS[facility]US 2018-12-22 03:56:00 [facility] LACTIC ACID, VENOUS 2018-12-22 03:56:00 [facility] CBC W/PLT COUNT & AUTO DIFFERENTIAL 2018-12-22 03:56:00 Sharad shook [facility] FIBRINOGEN 2018-12-22 03:55:00 Shmuel Sosa winifred [facility] HEMOGLOBIN AND HEMATOCRIT 2018-12-21 08:29:00 [facility] TRANSFUSE LEUKO-REDUCED RED BLOOD CELLS 2018-12-21 07:30:55 Víctor Breen [facility] POCT-LACTIC ACID, VENOUS 2018-12-21 04:01:00 JuliaVíctor mccoy Ma [facility] BLOOD CULTURE 2018-12-21 03:04:00 Julia Víctor [facility] AMMONIA 2018-12-21 02:48:00 [place] [facility] PROCALCITONIN 2018-12-21 02:48:00 [place] [facility] POCT-LACTIC ACID, VENOUS 2018-12-21 02:01:00 Víctor Breen Ma [facility] BLOOD CULTURE 2018-12-21 01:54:00 [place] [facility] COMPREHENSIVE METABOLIC PANEL 2018-12-21 01:53:00 [place] [facility] TROPONIN I 2018-12-21 01:53:00 [facility] PT/APTT 2018-12-21 01:53:00 [place] [facility] MAGNESIUM 2018-12-21 01:53:00 [facility] TYPE AND SCREEN, AUTOMATED 2018-12-21 01:53:00 [facility] CBC W/PLT COUNT & AUTO DIFFERENTIAL 2018-12-21 01:53:00 [facility] XR CHEST 1 VIEW PORTABLE/BEDSIDE 2018-12-21 01:39:00 [place], L [facility] XR KNEE RIGHT COMPLETE (4 VIEWS) 2018-12-21 01:39:00 IoniaKenisha [facility] ECG 12-LEAD 2018-12-21 01:18:37 Unknown, Hl7 Doctor [facility] CRITICAL CARE 2018-12-21 01:10:14 [place] [facility] RHYTHM STRIP - SCAN 2018-11-19 09:00:16 Provider, Default Scanni [facility] TRANSFUSION SERVICE REPORT - SCAN 2018-11-15 17:52:49 Provid er, Default Scanning [facility] CBC W/PLT COUNT & AUTO DIFFERENTIAL 2018-11-15 11:16:00 Panchito Hicks [facility] (MANUAL DIFFERENTIAL) 2018-11-15 11:16:00 Panchito Hicks [facility] HEPATIC FUNCTION PANEL 2018-11-15 04:40:00 Maru Pearson [facility] PROTHROMBIN TIME/INR 2018-11-15 04:40:00 Dariela Pearson [facility] BASIC METABOLIC PANEL (7) 2018-11-15 04:40:00 Al Stephens [facility] PHOSPHORUS 2018-11-15 04:40:00 Karen Dorantes [facility] CBC W/PLT COUNT & AUTO DIFFERENTIAL 2018-11-15 04:40:00 [facility] LEUKO-REDUCED RBC 2018-11-14 23:54:00 Panchito Hicks [facility] TRANSFUSION SERVICE REPORT - SCAN 2018-11-14 18:03:46 Provid er, Default Scanning [facility] IR TUNNELED DIALYSIS CATHETER 2018-11-14 12:38:00 Marlys Dorantes [facility] HEPATIC FUNCTION PANEL 2018-11-14 05:10:00 Maru Pearson [facility] PROTHROMBIN TIME/INR 2018-11-14 05:10:00 Dariela Pearson [facility] BASIC METABOLIC PANEL (7) 2018-11-14 05:10:00 Al Stephens [facility] CBC W/PLT COUNT & AUTO DIFFERENTIAL 2018-11-14 05:10:00 [facility] TRANSFUSE LEUKO-REDUCED RED BLOOD CELLS 2018-11-13 12:08:04 Panchito Arenas [facility] TYPE AND SCREEN, AUTOMATED 2018-11-13 08:34:00 Panchito Hicks [facility] HEMOGLOBIN AND HEMATOCRIT 2018-11-13 07:51:00 Neason, Panchito Le [facility] HEPATIC FUNCTION PANEL 2018-11-13 05:25:00 Maru Pearson [facility] PROTHROMBIN TIME/INR 2018-11-13 05:25:00 Dariela Pearson [facility] BASIC METABOLIC PANEL (7) 2018-11-13 05:25:00 Al Stephens CH [facility] PHOSPHORUS 2018-11-13 05:25:00 Karen Dorantes [facility] CBC W/PLT COUNT & AUTO DIFFERENTIAL 2018-11-13 05:25:00 SaryDavidsa Hyunna [facility] XR CHEST 2 VIEWS 2018-11-12 21:38:00 Afua Nguyen [facility] HEPATIC FUNCTION PANEL 2018-11-12 03:36:00 Maru Pearsonbillie [facility] PROTHROMBIN TIME/INR 2018-11-12 03:36:00 Dariela Pearson [facility] BASIC METABOLIC PANEL (7) 2018-11-12 03:36:00 Al Stephens [facility] CBC W/PLT COUNT & AUTO DIFFERENTIAL 2018-11-12 03:36:00 SaryDavid gracia yssa Hyunna [facility] PROTEIN, RANDOM URINE 2018-11-12 01:55:00 Karen Dorantes [facility] CREATININE, RANDOM URINE 2018-11-12 01:55:00 Karen Dorantes [facility] HEPATIC FUNCTION PANEL 2018-11-11 03:46:00 Maru Pearson [facility] PROTHROMBIN TIME/INR 2018-11-11 03:46:00 Dariela Pearson sofi [facility] BASIC METABOLIC PANEL (7) 2018-11-11 03:46:00 Al Stephens [facility] CBC W/PLT COUNT & AUTO DIFFERENTIAL 2018-11-11 03:46:00 Sary, David yssa Hyunna [facility] (CELLAVISION MANUAL DIFF) 2018-11-11 03:46:00 Yenifer Okeefe [facility] TRANSFUSION SERVICE REPORT - SCAN 2018-11-10 18:01:07 Provid er, Default Scanning [facility] REPORT OF PROCEDURE - ENDOSCOPY URL 2018-11-10 14:04:49 Alfred Lantigua [facility] TISSUE EXAM 2018-11-10 13:25:00 Devyn Lantigua [facility] COLONOSCOPY,BIOPSY 2018-11-10 13:00:00 Devyn Lantigua [facility] HEPATIC FUNCTION PANEL 2018-11-10 04:30:00 Maru Pearson [facility] PROTHROMBIN TIME/INR 2018-11-10 04:30:00 Dariela Pearson [facility] BASIC METABOLIC PANEL (7) 2018-11-10 04:30:00 Al Stephens [facility] CBC W/PLT COUNT & AUTO DIFFERENTIAL 2018-11-10 04:30:00 David Okeefe Augustsurinderrobi [facility] PREPARE LEUKO-REDUCED RBC 2018-11-09 23:54:00 Jeny Paredes V. [facility] URINALYSIS W/ REFLEX URINE CULTURE 2018-11-09 23:07:00 Maryellen Balderrama [facility] BLOOD CULTURE 2018-11-09 18:26:00 Maryellen Pearson [facility] TRANSFUSION SERVICE REPORT - SCAN 2018-11-09 18:02:25 Provid er, Default Scanning [facility] HEMODIALYSIS INPATIENT 2018-11-09 16:56:01 Matty Edmonds [facility] HEMODIALYSIS INPATIENT 2018-11-09 15:25:00 Karen Dorantes [facility] HEPATIC FUNCTION PANEL 2018-11-09 03:43:00 Maru Pearson [facility] PROTHROMBIN TIME/INR 2018-11-09 03:43:00 Dariela Pearson [facility] BASIC METABOLIC PANEL (7) 2018-11-09 03:43:00 Al Stephens [facility] PHOSPHORUS 2018-11-09 03:43:00 Karen Dorantes [facility] CBC W/PLT COUNT & AUTO DIFFERENTIAL 2018-11-09 03:43:00 David [facility] TRANSFUSE LEUKO-REDUCED RED BLOOD CELLS 2018-11-08 18:16:10 [facility]First[facility] TRANSFUSE LEUKO-REDUCED RED BLOOD CELLS 2018-11-08 15:03:23 [facility] ORDER 2018-11-08 14:39:00 Devyn Lantigua [facility] TYPE AND SCREEN, AUTOMATED 2018-11-08 09:26:00 Rj Paredeswaco Yasmin [facility] HEPATIC FUNCTION PANEL 2018-11-08 04:21:00 Maru Pearson [facility] BASIC METABOLIC PANEL (7) 2018-11-08 04:21:00 Al Stephens [facility] MAGNESIUM 2018-11-08 04:21:00 Alber Edmondshish [facility] PHOSPHORUS 2018-11-08 04:21:00 Kendal [facility] YARI ANTIGEN WITH REFLEX TO TITER 2018-11-08 04:20:00 Devyn Lantigua [facility] PROTHROMBIN TIME/INR 2018-11-08 04:20:00 Dariela Pearson sofi [facility] YARI ANTIGEN TITER 2018-11-08 04:20:00 Devyn Lantigua [facility] CBC W/PLT COUNT & AUTO DIFFERENTIAL 2018-11-08 04:20:00 David Okeefe aidee [facility] CT CHEST WITH HIGH RESOLUTION/ILD 2018-11-08 00:16:00 Lizz Lantigua [facility] MR ABDOMEN WITH & WITHOUT IV CONTRAST 2018-11-07 18:45:00 Devyn Lantigua [facility] HEPATIC FUNCTION PANEL 2018-11-07 05:24:00 Maru Pearson [facility] PROTHROMBIN TIME/INR 2018-11-07 05:24:00 Dariela Pearson sofi [facility] BASIC METABOLIC PANEL (7) 2018-11-07 05:24:00 Kat Al [facility] CBC W/PLT COUNT & AUTO DIFFERENTIAL 2018-11-07 05:24:00 SaryDavid gracia [facility] (CELLAVISION MANUAL DIFF) 2018-11-07 05:24:00 Yenifer Okeefe a [facility] HEPATIC FUNCTION PANEL 2018-11-06 03:32:00 [facility] PROTHROMBIN TIME/INR 2018-11-06 03:32:00 Dariela Pearson [facility] BASIC METABOLIC PANEL (7) 2018-11-06 03:32:00 Kat Al [facility] CBC W/PLT COUNT & AUTO DIFFERENTIAL 2018-11-06 03:32:00 SaryDavid graciasa Hyaidee [facility] (CELLAVISION MANUAL DIFF) 2018-11-06 03:32:00 Yenifer Okeefe [facility] URINE CULTURE 2018-11-05 20:47:00 [facility] URINALYSIS W/ MICROSCOPIC 2018-11-05 20:47:00 Jeny Paredes V[facility] XR CHEST 1 VIEW PORTABLE/BEDSIDE 2018-11-05 20:02:00 Mila Hicks [facility] HEPATITIS B SURFACE ANTIGEN 2018-11-05 15:32:00 Kendal [facility] HEPATITIS B SURFACE ANTIBODY 2018-11-05 15:32:00 [facility] CORE ANTIBODY, TOTAL 2018-11-05 15:32:00 Kendal [facility] IR NON-TUNNELED DIALYSIS CATHETER INSERTION 2018-11-05 12:10 :00 Kendal [facility] PT/APTT 2018-11-05 05:07:00 Kendal [facility] HEPATIC FUNCTION PANEL 2018-11-05 05:07:00 Maru Pearson [facility] PROTHROMBIN TIME/INR 2018-11-05 05:07:00 Dariela Pearson sofi [facility] BASIC METABOLIC PANEL (7) 2018-11-05 05:07:00 Al Stephens [facility] MAGNESIUM 2018-11-05 05:07:00 Kendal, [facility] PHOSPHORUS 2018-11-05 05:07:00 Kendal [facility] CBC W/PLT COUNT & AUTO DIFFERENTIAL 2018-11-05 05:07:00 David Okeefe [facility] (CELLAVISION MANUAL DIFF) 2018-11-05 05:07:00 Yenifer Okeefe a [facility] BLOOD CULTURE 2018-11-04 19:53:00 [facility] URINALYSIS W/ REFLEX URINE CULTURE 2018-11-04 19:52:00 Jacquelin [facility] AMMONIA 2018-11-04 12:42:00 Jeny [facility] HEPATIC FUNCTION PANEL 2018-11-04 03:47:00 Maru Pearson [facility] PROTHROMBIN TIME/INR 2018-11-04 03:47:00 Dariela Pearson [facility] BASIC METABOLIC PANEL (7) 2018-11-04 03:47:00 Al Stephens [facility] MAGNESIUM 2018-11-04 03:47:00 Jeny [facility] CBC W/PLT COUNT & AUTO DIFFERENTIAL 2018-11-04 03:46:00 Sary David holt Augustaidee [facility] (CELLAVISION MANUAL DIFF) 2018-11-04 03:46:00 Sary Yeniferjonathon Kochsurinder robi [facility] HEPATIC FUNCTION PANEL 2018-11-03 04:00:00 Maru Pearson [facility] PROTHROMBIN TIME/INR 2018-11-03 04:00:00 Dariela Pearson [facility] BASIC METABOLIC PANEL (7) 2018-11-03 04:00:00 Kat Al [facility] CBC W/PLT COUNT & AUTO DIFFERENTIAL 2018-11-03 04:00:00 SaryDavid gracia aidee [facility] HEPATIC FUNCTION PANEL 2018-11-02 05:22:00 Maru Pearson [facility] PROTHROMBIN TIME/INR 2018-11-02 05:22:00 Dariela Pearson [facility] BASIC METABOLIC PANEL (7) 2018-11-02 05:22:00 Kat Al [facility] CBC W/PLT COUNT & AUTO DIFFERENTIAL 2018-11-02 05:22:00 David Okeefe Augusta[facility] HEPATIC FUNCTION PANEL 2018-11-01 05:24:00 Maru Pearson [facility] PROTHROMBIN TIME/INR 2018-11-01 05:24:00 Dariela Pearson [facility] BASIC METABOLIC PANEL (7) 2018-11-01 05:24:00 Al Stephens [facility] CBC W/PLT COUNT & AUTO DIFFERENTIAL 2018-11-01 05:24:00 SaryDavid gracia [facility] HEPATIC FUNCTION PANEL 2018-10-31 04:19:00 Maru Pearson [facility] PROTHROMBIN TIME/INR 2018-10-31 04:19:00 Dariela Pearson [facility] BASIC METABOLIC PANEL (7) 2018-10-31 04:19:00 Dimitri [facility] CBC W/PLT COUNT & AUTO DIFFERENTIAL 2018-10-31 04:19:00 David Okeefesa Hyunna [facility] SODIUM, RANDOM URINE 2018-10-30 20:42:00 Karen Dorantes [facility] HEPATIC FUNCTION PANEL 2018-10-30 03:27:00 Maru Pearson [facility] PROTHROMBIN TIME/INR 2018-10-30 03:27:00 Dariela Pearson sofi [facility] BASIC METABOLIC PANEL (7) 2018-10-30 03:27:00 Kat [facility] CBC W/PLT COUNT & AUTO DIFFERENTIAL 2018-10-30 03:27:00 SaryDvaid gracia Hyunna [facility] HEPATIC FUNCTION PANEL 2018-10-29 04:12:00 Maru Pearson [facility] PROTHROMBIN TIME/INR 2018-10-29 04:12:00 Dariela Pearson sofi [facility] BASIC METABOLIC PANEL (7) 2018-10-29 04:12:00 Laney Pearson [facility] CBC W/PLT COUNT & AUTO DIFFERENTIAL 2018-10-29 04:12:00 David Okeefe Hysurindera [facility] (CELLAVISION MANUAL DIFF) 2018-10-29 04:12:00 David Okeefeyssa Kochunn a [facility] HEPATIC FUNCTION PANEL 2018-10-28 03:26:00 Maru Pearsonbillie [facility] PROTHROMBIN TIME/INR 2018-10-28 03:26:00 Dariela Pearson sofi [facility] BASIC METABOLIC PANEL (7) 2018-10-28 03:26:00 Laney Pearson [facility] CBC W/PLT COUNT & AUTO DIFFERENTIAL 2018-10-28 03:26:00 David Okeefe [facility] US PARACENTESIS 2018-10-27 15:07:00 Bruce [facility] BODY FLUID CELL COUNT WITH DIFFERENTIAL 2018-10-27 15:00:00 Juanpablo davison [facility] BODY FLUID CULTURE + GRAM STAIN 2018-10-27 15:00:00 Ara Barrera [facility] BLOOD CULTURE 2018-10-27 13:19:00 Bruce [facility] LACTIC ACID, VENOUS 2018-10-27 13:13:00 Panchito Hicks [facility] BLOOD CULTURE 2018-10-27 13:12:00 Bruce [facility] HEPATIC FUNCTION PANEL 2018-10-27 03:57:00 [facility] 2018-10-27 03:57:00 Dariela Pearson [facility] BASIC METABOLIC PANEL (7) 2018-10-27 03:57:00 Laney Pearson [facility] CBC W/PLT COUNT & AUTO DIFFERENTIAL 2018-10-27 03:57:00 David Okeefe [facility] US ABDOMEN LIMITED 2018-10-26 04:21:00 Mati Pearson [facility] HEPATIC FUNCTION PANEL 2018-10-26 03:50:00 Maru Pearson [facility] PROTHROMBIN TIME/INR 2018-10-26 03:50:00 Dariela Pearson [facility] BASIC METABOLIC PANEL (7) 2018-10-26 03:50:00 [facility] & AUTO DIFFERENTIAL 2018-10-26 03:50:00 Sary, Al [facility] HEPATIC FUNCTION PANEL 2018-10-25 04:01:00 Maru Pearsonbillie [facility] PROTHROMBIN TIME/INR 2018-10-25 04:01:00 Dariela Pearson sofi [facility] BASIC METABOLIC PANEL (7) 2018-10-25 04:01:00 [facility] W/[facility] & AUTO DIFFERENTIAL 2018-10-25 04:01:00 David Okeefe [facility] BASIC METABOLIC PANEL (7) 2018-10-24 04:36:00 [facility] 2018-10-24 04:36:00 [facility] PROT[facility]/INR 2018-10-24 04:36:00 Dariela Pearson [facility] MAGNESIUM 2018-10-24 04:36:00 NePanchito baumann [facility] PHOSPHORUS 2018-10-24 04:36:00 Neibis [facility] CBC W/PLT COUNT & AUTO DIFFERENTIAL 2018-10-24 04:36:00 David Okeefe [facility] MISCELLANEOUS LAB ORDER 2018-10-23 18:25:00 Junaid Pearson [facility] HEPATIC FUNCTION PANEL 2018-10-23 03:54:00 Maru Pearson [facility] PROTHROMBIN TIME/INR 2018-10-23 03:54:00 Dariela Pearson [facility] MAGNESIUM 2018-10-23 03:54:00 NePanchito baumann [facility] PHOSPHORUS 2018-10-23 03:54:00 Neibis [facility] Coreen [facility] BASIC METABOLIC PANEL (7) 2018-10-23 03:54:00 Al Stephens [facility] CBC W/PLT COUNT & AUTO DIFFERENTIAL 2018-10-23 03:54:00 David Okeefe [facility] URINALYSIS W/ REFLEX URINE CULTURE 2018-10-22 16:48:00 Maryellen Balderrama [facility] BLOOD CULTURE 2018-10-22 15:01:00 Maryellen Pearson [facility] HEPATIC FUNCTION PANEL 2018-10-22 04:20:00 Maru Pearson [facility] PROTHROMBIN TIME/INR 2018-10-22 04:20:00 Dariela Pearson [facility] BASIC METABOLIC PANEL (7) 2018-10-22 04:20:00 Kat Al [facility] CBC W/PLT COUNT & AUTO DIFFERENTIAL 2018-10-22 04:20:00 David Okeefe [facility] (CELLAVISION MANUAL DIFF) 2018-10-22 04:20:00 Yenifer Okeefe [facility] HEPATIC FUNCTION PANEL 2018-10-21 05:01:00 Maru Pearsonbillie [facility] PROTHROMBIN TIME/INR 2018-10-21 05:01:00 Dariela Pearson [facility] RETICULOCYTE COUNT 2018-10-21 05:01:00 Mati Pearson [facility] HAPTOGLOBIN 2018-10-21 05:01:00 Maryellen Pearson [facility] PERIPHERAL BLOOD SMEAR - PATHOLOGIST REVIEW 2018-10-21 05:01 :00 Maryellen Pearson [facility] VITAMIN B12 AND FOLATE 2018-10-21 05:01:00 Yenifer Okeefe [facility] BASIC METABOLIC PANEL (7) 2018-10-21 05:01:00 Kat Al [facility] CBC W/PLT COUNT & AUTO DIFFERENTIAL 2018-10-21 05:01:00 Sary, Al yssa [facility] (CELLAVISION MANUAL DIFF) 2018-10-21 05:01:00 Yenifer Okeefe [facility] 2D ECHO W/ DOPPLER (CW/PW/COLOR) 2018-10-20 13:30:32 Kendrick Okeefe [facility] HEPATIC FUNCTION PANEL 2018-10-20 06:22:00 Maru Pearson [facility] PROTHROMBIN TIME/INR 2018-10-20 06:22:00 Dariela Pearson [facility] MAGNESIUM 2018-10-20 06:22:00 Kurt Panchito [facility] PHOSPHORUS 2018-10-20 06:22:00 Kurt [facility] BASIC METABOLIC PANEL (7) 2018-10-20 06:22:00 Magalys Okeefesa [facility] LACTATE DEHYDROGENASE (LDH) 2018-10-20 06:22:00 Ra romario Pearson [facility] CBC W/PLT COUNT & AUTO DIFFERENTIAL 2018-10-20 06:22:00 Kurt [facility] CBC W/PLT COUNT & AUTO DIFFERENTIAL 2018-10-19 21:55:00 [facility] TRANSFUSION SERVICE REPORT - SCAN 2018-10-19 17:52:12 Provid er, Default Scanning [facility] CBC W/PLT COUNT & AUTO DIFFERENTIAL 2018-10-19 15:48:00 Kurt [facility] REPORT OF PROCEDURE - ENDOSCOPY URL 2018-10-19 11:05:57 Moriah Parisi lucila [facility] REPORT OF PROCEDURE - ENDOSCOPY URL 2018-10-19 09:17:18 Moriah Parisi [facility] TISSUE EXAM 2018-10-19 08:56:00 [facility]SY 2018-10-19 08:00:00 Shy Parisi [facility] UPPER ENDOSCOPY 2018-10-19 08:00:00 Vikas Parisianna [facility] COLONOSCOPY,POLYPECTOMY 2018-10-19 08:00:00 Isak [facility] PROTHROMBIN TIME/INR 2018-10-19 03:52:00 Dariela Pearson [facility] BASIC METABOLIC PANEL (7) 2018-10-19 03:50:00 Eric Lei [facility] HEPATIC FUNCTION PANEL 2018-10-19 03:50:00 Maru Pearson [facility] MAGNESIUM 2018-10-19 03:50:00 Kurt Panchito [facility] PHOSPHORUS 2018-10-19 03:50:00 Kurt [facility] CBC W/PLT COUNT & AUTO DIFFERENTIAL 2018-10-19 03:50:00 [facility] (CELLAVISION MANUAL DIFF) 2018-10-19 03:50:00 Kurt Panchito [facility] PREPARE LEUKO-REDUCED RBC 2018-10-18 23:54:00 Keshav Murray [facility] CBC W/PLT COUNT & AUTO DIFFERENTIAL 2018-10-18 19:17:00 Kurt [facility] (CELLAVISION MANUAL DIFF) 2018-10-18 19:17:00 Kurt Panchito Le [facility] SODIUM, RANDOM URINE 2018-10-18 18:43:00 [facility] CREATININE, RANDOM URINE 2018-10-18 18:43:00 [facility] UREA NITROGEN, RANDOM URINE 2018-10-18 18:43:00 [facility] TRANSFUSION SERVICE REPORT - SCAN 2018-10-18 17:52:19 Provid er, Default Scanning [facility] CBC W/PLT COUNT & AUTO DIFFERENTIAL 2018-10-18 12:33:00 Kurt [facility] (CELLAVISION MANUAL DIFF) 2018-10-18 12:33:00 Panchito Hicks [facility] LACTIC ACID, VENOUS 2018-10-18 06:49:00 FrancinePanchito baumann [facility] BASIC METABOLIC PANEL (7) 2018-10-18 04:55:00 Eric Lei [facility] HEPATIC FUNCTION PANEL 2018-10-18 04:55:00 Maru Pearson [facility] PROTHROMBIN TIME/INR 2018-10-18 04:55:00 Dariela Pearson [facility] CBC W/PLT COUNT & AUTO DIFFERENTIAL 2018-10-18 04:55:00 Pablo Murray [facility] (CELLAVISION MANUAL DIFF) 2018-10-18 04:55:00 Keshav Murray [facility] CBC W/PLT COUNT & AUTO DIFFERENTIAL 2018-10-17 20:59:00 Pablo Murray [facility] (CELLAVISION MANUAL DIFF) 2018-10-17 20:59:00 Keshav Murray [facility] URINALYSIS W/ REFLEX URINE CULTURE 2018-10-17 17:55:00 Brandon Murray [facility] BASIC METABOLIC PANEL (7) 2018-10-17 17:55:00 [facility]PLETE 2018-10-17 17:12:00 Tavon Pearson [facility] US DOPPLER 2018-10-17 17:12:00 Mandeep Taylor [facility] DRUG SCREEN, URINE, COMPREHENSIVE 2018-10-17 15:48:00 Maryellen Fitch [facility] BLOOD CULTURE 2018-10-17 15:39:00 Keshav Murray [facility] MISCELLANEOUS LAB ORDER 2018-10-17 15:01:00 Junaid Pearson [facility] LACTIC ACID, VENOUS 2018-10-17 15:01:00 Keshav Murray [facility] PROCALCITONIN 2018-10-17 15:01:00 Keshav Murray Bandar [facility] ETHANOL 2018-10-17 15:01:00 Maryellen Pearson [facility] CBC W/PLT COUNT & AUTO DIFFERENTIAL 2018-10-17 15:01:00 Ant Lei am [facility] BLOOD CULTURE 2018-10-17 15:00:00 Keshav Murray [facility] TRANSFUSE LEUKO-REDUCED RED BLOOD CELLS 2018-10-17 13:42:37 Keshav Murray [facility] BASIC METABOLIC PANEL (7) 2018-10-17 06:25:00 Eric Lei [facility] HEPATIC FUNCTION PANEL 2018-10-17 06:25:00 Maru Pearson [facility] MAGNESIUM 2018-10-17 06:25:00 Keshav Murray [facility] CBC W/PLT COUNT & AUTO DIFFERENTIAL 2018-10-17 06:25:00 Ant Lei am [facility] (CELLAVISION MANUAL DIFF) 2018-10-17 06:25:00 Eric Lei [facility] TRANSFUSE LEUKO-REDUCED RED BLOOD CELLS 2018-10-17 05:27:28 Gabriel Mcbride [facility] ECG 12-LEAD 2018-10-17 03:56:53 Eric Lei [facility] TYPE AND SCREEN, AUTOMATED 2018-10-17 00:38:00 Eric Lei [facility] URINALYSIS W/ REFLEX URINE CULTURE 2018-10-17 00:37:00 Melissa Lei [facility] Plan of Care Planned Activity Planned Date Details Comments Source Future Scheduled Test 2021-06-18 00:00:00 Lipid panel (proce dure) [code = 20353440] [facility] Future Scheduled Test 2019-11-27 00:00:00 IMM Influenza Seas onal Nov to April (>/= 19 yrs) [code = IMM Influenza Seasonal Nov to April (>/= 19 yrs)] [facility] Scheduled Test 2019-10-28 00:00:00 INFLUENZA VACCINE (#1) [code = INFLUENZA VACCINE (#1)] [facility] Scheduled Test 1984 00:00:00 PNEUMOCOCCAL VACCI NE 2-64 YEARS AT RISK (1 of 3 - PCV13) [code = PNEUMOCOCCAL VACCINE 2-64 YEARS AT RISK (1 of 3 - PCV13)] [facility] Instructions Anemia [facility] Instructions GI Bleeding [facility] Encounters Start Date/Time End Date/Time Encounter Type Admission Type [facility] Care Department Encounter ID Source 2018-01-28 08:27:07 Inpatient [facility] [id number] [facility] 2018-01-28 01:10:06 Inpatient [facility] [id number] [facility] 2018-01-27 00:00:00 Inpatient [facility] [id number] [facility] 2018-01-25 00:00:00 Inpatient [facility] [id number] [facility] 2019-09-26 18:04:00 2019-09-27 19:03:00 Discharged Inpatient [address] [facility] [id number] [facility] 2019-01-09 00:00:00 2019-01-09 00:00:00 Outpatient [facility] [id number] [facility] 2018-10-16 12:41:00 2018-10-16 12:41:00 Registered Emergency Room 1 MARYLU DUQUE [facility] [id number] [facility] 2018-09-05 00:00:00 2018-09-05 00:00:00 Outpatient [facility] [id number] [facility] 2018-06-19 00:00:00 2018-06-19 00:00:00 Outpatient [facility] [id number] [facility] 2018-05-27 18:25:00 2018-06-01 07:30:00 Discharged Inpatient 1 KIET DUMAS [facility] [id number] [facility] 2018-01-30 00:00:00 2018-01-30 00:00:00 Outpatient [facility] [id number] [facility] 2018-01-29 00:00:00 2018-01-29 00:00:00 Outpatient [facility] [id number] [facility] 2018-01-24 21:17:42 2018-01-24 21:17:42 Emergency [facility] [id number] [facility] 2018-01-24 20:24:34 2018-01-24 20:24:34 Emergency [facility] [id number] [facility] 2018-01-24 17:21:24 2018-01-24 17:21:24 Inpatient [facility] [id number] [facility] Results Test Description Test Time Test Comments Results Result Comments Source Blood leukocytes automated count (number/volume) 2019-09-27 05:45:00 Test Item White Blood Count (test code = 6690-2) 7.33 4.8-10.8 [facility] erythrocytes automated count (number/volume)2019-09-27 05:45:00* Test Item Value Reference Range Interpretation Comments Red Blood Count (test code = 789-8) 1.71 4.3-5.7 [facility] Texas[facility] hemoglobin measurement (moles/volume)2019-09-27 05:45:00* Test Item Value Reference Range Interpretation Comments Hemoglobin (test code = 59357-2) 6.0 14.0-18.0 Results called to CINTHYA TOVAR at 0637 on 09/27/19 by Roland Gore. [place]. [facility] TexasAutomated blood hematocrit (volume fraction)2019-09-27 05:45:00* Test Item Value Reference Range Interpretation Comments Hematocrit (test code = 4544-3) 17.7 38.2-49.6 Results called to CINTHYA TOVAR at 0637 on 09/27/19 by Roland Gore. [place]. [facility] TexasAutomated erythrocyte mean corpuscular [id number] 05:45:00* Test Item Value Reference Range Interpretation Comments Mean Corpuscular Volume (test code = 787-2) 103.5 81-99 [facility] TexasAutom[facility] erythrocyte mean corpuscular hemoglobin (mass per erythrocyte)2019-09-27 05:45:00* Test Item Value Reference Range Interpretation Comments Mean Corpuscular Hemoglobin (test code = 785-6) 35.1 28-32 [facility] TexasAutom[facility] erythrocyte mean corpuscular hemoglobin concentration measurement (mass/volume)2019-09-27 05:45:00* Test Item Value Reference Range Interpretation Comments Mean Corpuscular Hemoglobin Concent (test code = 786-4) 33.9 31-35 [facility] TexasRDW NmeGi-Mee2331-26-01 05:45:00* Test Item Value Reference Range Interpretation Comments Red Cell Distribution Width (test code = 37011-6) 19.9 11.7 -14.4 [facility] TexasAutom[facility] blood platelet count (count/volume)2019-09-27 05:45:00* Test Item Value Reference Range Interpretation Comments Platelet Count (test code = 777-3) 108 140-360 [facility] TexasAutomated blood segmented neutrophil count as percentage of total drlyrvgdhg0267-80-29 05:45:00* Test Item Value Reference Range Interpretation Comments Neutrophils (%) (Auto) (test code = 31628-5) 74.2 38.7-80.0 [facility] TexasAutom[facility] blood lymphocyte count as percentage ot total ptuilsegik4886-66-35 05:45:00* Test Item Value Reference Range Interpretation Comments Lymphocytes (%) (Auto) (test code = 736-9) 8.6 18.0-39.1 [facility] TexasAutom[facility] blood monocyte count as percentage of total nzeyknmlhe8428-70-94 05:45:00* Test Item Value Reference Range Interpretation Comments Monocytes (%) (Auto) (test code = 5905-5) 12.3 4.4-11.3 [facility] TexasAutomated blood eosinophil count as percentage of total odbgcxtztp9480-71-00 05:45:00* Test Item Value Reference Range Interpretation Comments Eosinophils (%) (Auto) (test code = 713-8) 2.7 0.0-6.0 [facility] TexasAutom[facility] blood basophil count as percentage of total tqrtewmcbb1486-82-71 05:45:00* Test Item Value Reference Range Interpretation Comments Basophils (%) (Auto) (test code = 706-2) 0.7 0.0-1.0 [facility] TexasFluoroscopic procedure less than one hour hyqtdpse3696-71-60 05:45:00* Test Item Value Reference Range Interpretation Comments IM GRANULOCYTES % (test code = IM GRANULOCYTES %) 1.5 0.0- 1.0 [facility] TexasAutom[facility] blood neutrophil count 2019-09-27 05:45:00* Test Item Value Reference Range Interpretation Comments Neutrophils # (Auto) (test code = 751-8) 5.4 2.1-6.9 [facility] TexasBlood lymphocytes count (number/volume) 2019-09-27 05:45:00* Test Item Value Reference Range Interpretation Comments Lymphocytes # (Auto) (test code = 48091-7) 0.6 1.0-3.2 [facility] monocytes automated count (number/volume)2019-09-27 05:45:00* Test Item Value Reference Range Interpretation Comments Monocytes # (Auto) (test code = 742-7) 0.9 0.2-0.8 [facility] TexasAutomated blood eosinophil count 2019-09-27 05:45:00* Test Item Value Reference Range Interpretation Comments Eosinophils # (Auto) (test code = 711-2) 0.2 0.0-0.4 [facility] TexasAutomated blood basophil count (count/volume)2019-09-27 05:45:00* Test Item Value Reference Range Interpretation Comments Basophils # (Auto) (test code = 704-7) 0.1 0.0-0.1 [facility] TexasFluoroscopic procedure less than one hour gscqvstm3823-39-09 05:45:00* Test Item Value Reference Range Interpretation Comments Absolute Immature Granulocyte (auto (doug t code = Absolute Immature Granulocyte (auto) 0.11 0-0.1 [facility] sodium [facility] (moles/volume)2019-09-27 05:45:00* Test Item Value Reference Range Interpretation Comments Sodium Level (test code = 2951-2) 136 136-145 [facility] potassium measurement (moles/volume)2019-09-27 05:45:00* Test Item Value Reference Range Interpretation Comments Potassium Level (test code = 2823-3) 3.2 3.5-5.1 [facility] chloride measurement (moles/volume)2019-09-27 05:45:00* Test Item Value Reference Range Interpretation Comments Chloride Level (test code = 2075-0) 102 98-107 [facility] plasma carbon dioxide, total measurement (moles/volume)2019-09-27 05:45:00* Test Item Value Reference Range Interpretation Comments Carbon Dioxide Level (test code = 2028-9) 28 22-29 [facility] anion zfx7361-38-64 05:45:00* Test Item Value Reference Range Interpretation Comments Anion Gap (test code = 01090-8) 9.2 8-16 [facility] urea nitrogen measurement (mass/volume)2019-09-27 05:45:00* Test Item Value Reference Range Interpretation Comments Blood Urea Nitrogen (test code = 3094-0) 11 7-26 [facility] creatinine measurement (mass/volume)2019-09-27 05:45:00* Test Item Value Reference Range Interpretation Comments Creatinine (test code = 2160-0) 2.29 0.72-1.25 [facility] plasma urea nitrogen/creatinine mass aktvq1654-85-82 05:45:00* Test Item Value Reference Range Interpretation Comments BUN/Creatinine Ratio (test code = 3097-3) 5 6-25 [facility] TexasEstimated glomerular filtration rate (GFR) skftxpccylxcq3368-88-00 05:45:00* Test Item Value Reference Range Interpretation Comments Estimat Glomerular Filtration Rate (test code = 671130599) 32 >60 Ranges were taken from the National Kidney Disease Education Program and the [facility] [employer] literature.Reference ranges:60 or greater: Hpdqda05-17 ( for 3 consecutive months): Chronic kidney disease 15 or less: Kidney failureD[facility] at [facility] of TexasGlucose ezifcihhqrk3796-15-96 05:45:00* Test Item Value Reference Range Interpretation Comments Glucose Level (test code = BRW6304) 109 74-118 [facility] calcium measurement (mass/volume)2019-09-27 05:45:00* Test Item Value Reference Range Interpretation Comments Calcium Level (test code = 94177-9) 7.9 8.4-10.2 [facility] iron measurement (mass/volume)2019-09-27 05:45:00* Test Item Value Reference Range Interpretation Comments Iron Level (test code = 2498-4) 70 65-175 [facility] iron binding capacity measurement (mass/volume)2019-09-27 05:45:00* Test Item Value Reference Range Interpretation Comments Total Iron Binding Capacity (test code = 2500-7) 118 261-4 78 [facility] plasma iron saturation measurement (mass fraction)2019-09-27 05:45:00* Test Item Value Reference Range Interpretation Comments Percent Iron Saturation (test code = 2502-3) 59 15-50 [facility] plasma transferrin measurement (mass/volume)2019-09-27 05:45:00* Test Item Value Reference Range Interpretation Comments Transferrin (test code = 3034-6) 84 174-364 [facility] plasma ferritin measurement (mass/volume)2019-09-27 05:45:00* Test Item Value Reference Range Interpretation Comments Ferritin (test code = 2276-4) 565.91 21.81-274.66 [facility] plasma total bilirubin measurement (mass/volume)2019-09-27 05:45:00* Test Item Value Reference Range Interpretation Comments Total Bilirubin (test code = 1975-2) 11.4 0.2-1.2 [facility] TexasFluoroscopic procedure less than one hour xxkiskor0258-07-18 05:45:00* Test Item Value Reference Range Interpretation Comments Aspartate Amino Transf (AST/SGOT) (test code = Aspartate Amino Transf (AST/SGOT)) 63 5-34 [facility] alanine aminotransferase measurement (enzymatic activity/volume)2019-09-27 05:45:00* Test Item Value Reference Range Interpretation Comments Alanine Aminotransferase (ALT/SGPT) (test code = 1742-6) 16 0-55 [facility] TexasAmmonia Rcc-tWmm2310-28-01 05:45:00* Test Item Value Reference Range Interpretation Comments Ammonia (test code = 82036-3) 129 31-123 [facility] lactate dehydrogenase measurement (enzymatic activity/volume)2019-09-27 05:45:00* Test Item Value Reference Range Interpretation Comments Lactate Dehydrogenase (test code = 699998929) 160 125-220 [facility] protein measurement (mass/volume)2019-09-27 05:45:00* Test Item Value Reference Range Interpretation Comments Total Protein (test code = 2885-2) 5.8 6.5-8.1 [facility] albumin measurement (mass/volume)2019-09-27 05:45:00* Test Item Value Reference Range Interpretation Comments Albumin (test code = 1751-7) 2.4 3.5-5.0 [facility] TexasPlasma globulin measurement (mass/volume) 2019-09-27 05:45:00* Test Item Value Reference Range Interpretation Comments Globulin (test code = 46384-7) 3.4 2.3-3.5 [facility] albumin/globulin mass fyryd7997-50-47 05:45:00* Test Item Value Reference Range Interpretation Comments Albumin/Globulin Ratio (test code = 1759-0) 0.7 0.8-2.0 [facility] plasma alkaline phosphatase measurement (enzymatic activity/volume)2019-09-27 05:45:00* Test Item Value Reference Range Interpretation Comments Alkaline Phosphatase (test code = 6768-6) 147 40-150 [facility] ABDOMEN DULQWJHR7152-61-01 20:45:00 [facility] [address] [address] Patient Name: INDRA GALVAN MR #: [id number] : Age/Sex: 38/M Req #: [id number] Adm Physician: KHLOE BOX MD Ordered by: KERVIN FRYE, VIRGILIO FRYE Report #: [id number] Location: MED/SURG Room/Bed: [facility] Procedure: [id number] US /US ABDOMEN COMPLETE Exam Date: 09/26/19 Exam Time: 1704 REPORT STATUS: Signed EXAM: Complete Abdominal Ultrasound INDICATION: History of cirrhosis and anemia who presents with abdominal pain. COMPARISON: Multiple prior abdominal ultrasound s. CT abdomen/pelvis on 05/27/2018. TECHNIQUE: Transverse and longitudinal im ages of the upper abdomen were obtained. FINDINGS: Liver: Size: 19.5 cm in the right midclavicular line, enlarged Appearance: Diffu sely echogenic with nodular contour. Mass: No focal masses Spleen: Size: 16.5 cm in length, enlarged Echogenicity: Normal Ma ss: No focal masses Gallbladder: Stones/Sludge: There is sludge and multiple gallstones. Wall: 0.3 cm Appearance: No pericholecystic f luid or hydrops. Sonographic Cooper's Sign: Negative Bile Ducts: Intrahepatic Ducts: No dilatation Extrahepatic Ducts: Common bile d uct measures 0.4 cm, no dilatation Pancreas: Visualized portions of the pancreatic head, neck and proximal body are normal. Right Kidney: Size: 11.5 x 5.8 x 4.9 cm Echogenicity: Normal Parenchymal t hickness: Normal Collecting System: No hydronephrosis Stone: No ne Cyst/Mass: None Left Kidney: Size: 11.1 x 5.4 x 5.5 cm Echogenicity: Normal Parenchymal thickness: Normal Collecting System: No hydronephrosis Stone: None Cyst/Mas s: None Vessels: Aorta: Visualized portions are normal Inferi or Vena Cava: Visualized portions are normal Main Portal Vein: 1.2 cm, no rmal size with hepatopetal flow. Free Fluid: There is trace ascites. No pleural effusion. IMPRESSION: 1. Hepatosplenomegaly with trace ascit es. No focal hepatic mass identified. 2. Cholelithiasis without evidence of c holecystitis. LV hyper to kid LV hypo to [...] CATERINA on 09/26/192051 COPY TO: VIRGILIO GALEANA Stool gastrointestinal hemoglobin qeshmlgtt6995-58-91 19:32:00* Test Item Value Reference Range Interpretation Comments Stool Occult Blood (test code = 2335-8) POSITIVE NEGATIVE [facility] TexasBlood macrocytes detection by light ujgcmfvxqh1002-38-48 11:40:00* Test Item Value Reference Range Interpretation Comments Macrocytosis (test code = 738-5) SLIGHT [facility] TexasAutomated reticulocyte count as percentage of total nhtdsbsldykq9992-94-04 11:40:00* Test Item Value Reference Range Interpretation Comments Percent Reticulocyte Count (test code = 58095-3) 11.2 0.8-2 .2 [facility] TexasProthrombin time (PT) in platelet poor plasma by coagulation dwpxp9162-38-51 11:40:00* Test Item Value Reference Range Interpretation Comments Prothrombin Time (test code = 5902-2) 20.0 11.9-14.5 [facility] TexasINR in Platelet poor plasma by Coagulation jtiiz3293-89-87 11:40:00* Test Item Value Reference Range Interpretation Comments Prothromb Time International Ratio (test code = 6301-6) 1.60 Oral Anticoagulant Therapy INR Values:1. Low Intensity Therapy 1.5 - 2.02 . Moderate Intensity Therapy 2.0 - 3.03. High Intensity Therapy(1) 2.5 - 3. 54. High Intensity Therapy(2) 3.0 - 4.05. Panic Value INR > 5.0 [facility] TexasActivated partial thromboplastin time (aPTT) in platelet poor plasma by coagulation eihhw8198-52-06 11:40:00* Test Item Value Reference Range Interpretation Comments Activated Partial Thromboplast Time (test code = 41339-0) 39.4 23.8-35.5 [facility] conjugated bilirubin measurement (mass/volume)2019-09-26 11:40:00* Test Item Value Reference Range Interpretation Comments Direct Bilirubin (test code = 11433-0) 7.7 0.0-0.5 [facility] plasma indirect bilirubin measurement (mass/volume)2019-09-26 11:40:00* Test Item Value Reference Range Interpretation Comments Indirect Bilirubin (test code = 1971-1) 5.4 0.3-1.2 [facility] or plasma creatine kinase measurement (enzymatic activity/volume)2019-09-26 11:40:00* Test Item Value Reference Range Interpretation Comments Creatine Kinase (test code = 2157-6) 22 30-200 [facility] or plasma creatine kinase MB measurement (mass/volume)2019-09-26 11:40:00* Test Item Value Reference Range Interpretation Comments Creatine Kinase MB (test code = 55833-5) 0.50 0-5.0 [facility] TexasTroponin I measurement by highly sensitive enzyme yrlwnfytpib2117-14-86 11:40:00* Test Item Value Reference Range Interpretation Comments Troponin I (test code = 72417-3) 0.012 0-0.300 [facility] TexasBlood cobalamin (vitamin B12) measurement (mass/volume)2019-09-26 11:40:00* Test Item Value Reference Range Interpretation Comments Vitamin B12 Level (test code = 51908-8) 1416 213816 [facility] TexasCHEST SINGLE (PORTABLE)2019-09-26 11:24:[address] [address] Patient Name: INDRA GALVAN MR #: [id number] : 1980 Age/Sex: 38/M Req #: [id number] Adm Physician: Ordered by: MARYLU KELSEY DO Report #: [id number] Location: ER Room/Bed: Procedure: [id number] DX/CHEST SINGLE (PORTABLE) Exam Date: 09/26/19 Exam Time: 1100 REPORT STATUS: Signed EXAMINATION: CHEST SINGLE (PORTABLE) INDICATION: Anemia COMPARIS ON: Chest CT 05/31/2018 FINDINGS: LINES/TUBES:Right IJ tunneled nathanile lysis catheter terminates at the superior cavoatrial junction. LUNGS:The lungs are well-inflated. Mild left basilar opacity. PLEURA:No pleural effus ion or pneumothorax. MEDIASTINUM:The cardiomediastinal silhouette appears n ormal in size and shape. BONES/SOFT TISSUES:No acute osseous injury. A BDOMEN:No free air under the diaphragm. IMPRESSION: Mild left basilar opacity, most likely subsegmental atelectasis. Signed by: Srinivasan Chiang MD on 09/26/2019 11:25 AM Dictated By: SRINIVASAN CHIANG MD 1125 Transcribed By: CATERINA on 09/26/19 1125 COPY TO: MARYLU KELSEY DO MR, ABDOMEN, [id number] 12:54:00FINAL REPORT MRI of the abdomen with and without contrast Clinical History: cirrhosis screen for HCC Technique: Multiplanar and multiseq uence MR images of the abdomen are obtained before and after intravenous contras t administration. Contrast is administered to evaluate neoplasm and vasculature. Comparison: November 07, 2018 Discussion: There are trace bilateral pleural e ffusions. Liver has a mildly nodular contour. No mass lesion is identified. No b iliary ductal dilatation. Hepatic vasculature is patent. There is sludge within the gallbladder. Spleen is enlarged and measures 14.7 cm sagittally. Pancreas, a drenal glands are unremarkable. Kidneys demonstrate no mass, hydronephrosis, or radiopaque stone. There is a moderate to large amount of ascites, increased sinc e the previous exam. Mildly prominent upper abdomen lymph nodes are unchanged, l ikely reactive. Visualized bowel is unremarkable. There is a new compression def ormity of T10 vertebral body, probably related to insufficiency fracture. Impres karthik: No suspicious liver mass is identified. Gallbladder sludge. Moderate to la rge amount of ascites. Splenomegaly. New compression fracture of T10 vertebral b oliver. Signed: Gela Rodriguez Verified Date/Time: 05/23/2019 12:54:18 Reading Location: [address] Ortho Consult Reading Room abdomen with/without IV contrast 2019-05-23 12:54:00Interface, External Ris In - 05/23/2019 12:56 PM [...] of T10 vertebral body. Signed: Gela Rodriguez Verified Date/Time: 05/23/2019 12:54:18 Reading Location: [address] Ortho Consult Reading Room [facility] Metabolic Fbcuk0746-90-27 09:34:00* Test Item Value Reference Range Interpretation Comments Sodium (test code = 2951-2) 139 meq/L [...] mg/dL 70-105 H Calcium (test code = 24385-3) 8.5 mg/dL 8.4-10.2 EGFR (test code = 86263-0) 25 mL/min/1.73 sq m ESTIMATED GFR IS NOT ACCURATE CREATININE CLEARANCE IN PREDICTING GLOMERULAR FILTRATION RATE. ESTIMATED GFR IS NOT APPLICABLE FOR DIALYSIS PATIENTS. PHILLIP (test code = PHILLIP) Line Pilot ID - ROSIANGSpecimen moderately icte waldemar Lab Interpretation (test code = 33047-6) Abnormal [facility] METABOLIC [id number] 09:34:00* Test Item Value Reference Range Interpretation [...] GFR IS NOT APPLICABLE FOR DIALYSIS PATIENTS. Line Pilot ID - PORSHAEDUARDOparminder moderately ictericHepatic function xtwvr2781-96-70 09:29:00* Test Item Value Reference Range Interpretation Comments Protein, Total (test code = 2885-2) 6.5 6.0- 8.3 gm/dL Albumin (test code = 57205-9) 3.4 g/dL 3.5-5 L Total Bilirubin (test code = 1975-2) 5.4 mg/dL 0.2-1.2 H Bilirubin, Direct (test code = 1968-7) 2.6 mg/dL 0.1-0.5 H Alkaline Phosphatase (test code = 6768-6) 200 U/L 40-150 H AST (test code = 1920-8) 46 U/L 5-34 H ALT (test code = 1742-6) 12 U/L 6-55 PHILLIP (test code = PHILLIP) Line Pilot ID - Kavon moderately icte waldemar Lab Interpretation (test code = 90232-4) [facility]normal [facility] OXUGD3367-81-14 09:29:00* Test Item Value Reference Range Interpretation [...] (test code = 347) 12 U/L 6-55 Line Pilot ID - Kavon moderately ictericCBC with platelet count + automated gnly7494-55-66 09:27:00* Test Item Value Reference Range Interpretation [...] K/CU MM L MPV (test code = 96583-2) 8.4 fL 9.4-12.4 L nRBC (test code [...] % 0-1 Lab Interpretation (test code = 28761-9) Abnormal [facility] W/PLT COUNT & AUTO LWNODCJZCHZY1578-01-73 09:27:00* Test Item Value Reference Range Interpretation [...] code = 2801) 0 % 0-1 Prothrombin time/RRA3948-10-12 09:19:00* Test Item Value Reference Range Interpretation [...] heart valves. Lab Interpretation (test code = 26064-3) Abnormal [facility] CenterPROTHROMBIN TIME/[id number] 09:19:00* Test Item Value Reference Range Interpretation [...] patie nts wiht mechanical heart valves.MISCELLANEOUS LAB STWFS3702-48-81 08:04:00* Test Item Value Reference Range Interpretation Comments SCAN RESULT (test code = 3433637) Treadmill tolerance(Non-Nuclear Treadmill)2019-05-15 22:24:56Interface, External Ris In [...] Sera, Hi pinedo ([id number]) on 05/15/2019 10:24:47 [facility]OLIC KFCVC0630-60-24 11:48:00* Test Item Value Reference Range Interpretation [...] GFR IS NOT APPLICABLE FOR DIALYSIS PATIENTS. Line Pilot ID - VIDYA MSpecimen slightly ictericBILIRUBIN, [id number] 11:32:00* Test Item Value Reference Range Interpretation Comments BILIRUBIN DIRECT (BEAKER) (test code = 706) 2.0 mg/dL 0.1-0.5 H HEPATIC FUNCTION [id number] 11:32:00* Test Item Value Reference Range Interpretation [...] (test code = 347) 8 U/L 6-55 Line Pilot ID - VIDYA MSpecimen slightly ictericCBC W/PLT COUNT & AUTO REJDXEYCNQTO2874-62-01 11:30:00* Test Item Value Reference Range Interpretation [...] code = 2801) 1 % 0-1 PROTHROMBIN TIME/[id number] 11:25:00* Test Item Value Reference Range Interpretation [...] mechanical heart valves.Body fluid culture + gram gpgdi0639-35-22 15:44:00* Test Item Value Reference Range Interpretation Comments Result (test code = 6463-4) No growth Gram Stain Result (test code = 1123) No organisms seen [facility] + GRAM [id number] 15:44:00 * Test Item Value Reference Range Interpretation Comments CULTURE (BEAKER) (test code = 1095) No growth GRAM STAIN RESULT (BEAKER) (test code = 1123) 1+ White blood cells seen GRAM STAIN RESULT (BEAKER) (test code = 80162) No organisms seen Wpokhosgq6575-21-34 06:38:00* Test Item Value Reference Range Interpretation Comments Magnesium (test code = 94771-9) 1.9 mg/dL 1.6-2.6 PHILLIP (test code = PHILLIP) Line Pilot ID - ULYSSES M Lab Interpretation (test code = 32150-4) Normal [facility]osph[facility]2020-03-14 06:38:00* Test Item Value Reference Range Interpretation Comments Phosphorus (test code = 2777-1) 3.4 mg/dL 2.3-4.7 PHILLIP (test code = PHILLIP) Line Pilot ID - ULYSSES M Lab Interpretation (test code = 38293-1) Normal [facility]OS[facility]US2020-03-14 06:38:00* Test Item Value Reference Range Interpretation Comments PHOSPHORUS (BEAKER) (test code = 604) 3.4 mg/dL 2.3-4.7 Line Pilot ID - ULYSSES ZSSAVXLNFR7808-89-55 06:38:00* Test Item Value Reference Range Interpretation Comments MAGNESIUM (BEAKER) (test code = 627) 1.9 mg/dL 1.6-2.6 Line Pilot ID - ULYSSES MBlood Culture - Routine (Left Venipuncture)2019-05-09 20:01:00* Test Item Value Reference Range Interpretation Comments Result (test code = 6463-4) No growth in 5 days [facility] MKZPSVY3536-03-58 20:01:00* Test Item Value Reference Range Interpretation Comments CULTURE (BEAKER) (test code = 1095) No growth in 5 days BLOOD NOMUSXG0237-25-07 20:00:00* Test Item Value Reference Range Interpretation Comments CULTURE (BEAKER) (test code = 1095) No growth in 5 days Gydhmqif6770-11-48 16:28:00* Test Item Value Reference Range Interpretation Comments Case Report (test code = 104) Medical Cytology Report Case: [id number] Authorizing Provider: Robbie New MD Collected: 05/07/2019 1920 Ordering Location: [place] [address] CCU Received: 05/08/2019 1445 Pathologist: Iman Yang MD Specimen: Pericardial DIAGNOSIS (test code = 3220) i4gjuXTtDBPlb8shWQZynEJrMeItOiDcMaLoBcghdDWcCFcvlrZpCDrch7SpI9IaInWcFFuwegMfYLHe InqhtszsJTRhPMG7stUmGTRxTJruTBMmUSqxCa2umVSfeKqyRlJbLOKoh2skljUUmqlewNa0o5hfSITd KgM2rXCvMIkpE5xirsTnoTToRLAsNXv7iT82ZXXbcN 4vdUWfOXhlhsXzPyF6UMmtYVYfCtT7MJWwjJWrWFYrF6xsRZYsLXdsIZEvNZfogEBkOKA8dUelj6D6gC HmwCWloTxmVaSoSkNyOONLv4EwHJy8gXhkE9KtZBZsWqN2gUHqAVHwGXkxCHHvSDKcijA5wC25FCxtfk A4dKNon8Jpo20js258mZ7rqEUtKMT6RQUgUBVuhGLz ZVEkNXQ2BRXthTZxQ8d6UjEtbCEuK5I2ZhDtnEAbN1M4UlHruOPxW7O1EiJvlDPvGWXhyOLqVz8psOIg oFPalm5qqu84HFC3c2KwcLnhWHW2DVD8WaJsVs3liKWdRBMrHH7aWyQejAJeFOXonp18wHkgBOhcotNb gQ8lBoDbUGHuqYLfQCSdWH2slHPpEYFbnL9qofpbLD EdKpVloswkGBJawCfonxXhWl6skSraQIO8CCoiX9cepR0nBhX2CYncU7lbiV9dJQd7QMjntUM4LVVeaO 0iJP1nvokjo6avCnWzXO4qeebsr2goUvEzYA1fyec4m0rnMwCfWW8upyooj5ogRuZvSVaaBYUaevtgLI Csz7CfzuvpOQHcu3WuW5PwnXbdG01yzFqjK28bBMIa rTclzU6ktIwevJ3eJoSjPfUhGCvijBaisSHzcalkGYivqfWnKNddukfpLVOzFJdsW9ayImXsHRXmeWoo PWxmj4LfXJCkKRVfAeXuMEZGMLPIEpRGPRnyXjlZPIMmJUNRON5DWMaBFyu7HKstbhToRQOiRQSLBUjZ VYvQIFSRB6JaXJDTODgJJS2DYHfoBLMubZMmcGfsum AmFNwbh4VxJMioRSJvQU3lnQnqZQMzCK3eOQYxR7doiL2upsh0FvDqIMLoQwI1XNMbhsA3Gwn3AKNxCM dbl5xnq2QvQHHlFIq8wSoaQgRiFPFso4mnggGwQaNdGOZlAXJhPJYosKOoK231k7cdy5xnclQhuJG7LX JtWAY9XDxhynDdxpX9TAutmTOdPiQ0AGajnvXvCEzb mzNhmaBhScf8MSWdW916NPJ7aZshh4mcBRP3PGAnKJVfOxAwMi8vmAFqT857MIFbUKVTHAIvrEs1UPTs weKomoPgyEEBf656B181y8ajKFBuhkLpnDwTywmop9ljN987RALmsQRhwuSdSmVlOVIobEZyhZI6CCPb IE7xidcgJCqzHArqJZNdpnL0FGDavVTfL0IiMDPmMC 6ymnjsZDA4OWrtEFGqWOU2KfTaSJBnk2Vcikk6KlHpib4uue85GNM9p4JuzZyaCIK0EDI8AvSjJf6ltW SuSIRmHI4zYtKzgQYrZQZfhy53hLrqDMiuYPA1RVJhrnMxk6Fzd1yrBqDgugRsP7hlV8OtLXGuXYVaIF KiBuTvarRsk9Njy3GjqWCvpCu4d0poMNWvVKGfbMtx x4hfGHF4WPYwxKGiP8nogA7pJAPzXU7nctdwm7thYJkvNXspXKQwyPL2ayV4VXSgdQFwT2IuoO9mWUKe HNzcLQZstga9YxRdQz3tzGMdzTrfNNcpVfjaHZpwZHGmflHbdgQqnYljKWHmEZUvUHzjRIYbVAvhYSFi XGZzMjRccWxcbGFuZzEwMzNcaGljaFxmMVxkYmNoXG WbDWytF2tzCcPqVwGxMzr8FAAmoTKyIZKeQst1LMZazVGmJFXDuKkedQ1rYZZnlFgjyC5gsMD8QFVmtp IjyOPBhM2zRKNOjU4dTiA2ZtBkBoA1SCSoBUrsmTSjmX5= CPT Code(s) (test code = 3357) x8cggNSmLUGddKFwThFmPVVaZLCoq1nyJLAhyLOwPzUmMzKcSnPuZrfkkEGlPFLbQjPrv1uxd274uKVk c0buLLJwUaZ9bXFvHYZhrEMfS492y8rwn2daeuZqfRI3EMUvERX0VSzvzgGxbwC4KBowdNPkLpO7VDmn bgPlOSswavLedoXcMgh5IUDfS690BOK9dHqwg2mdXS O5NARxEJDdFrXvVk2pvZFeC254PHIdJYHXTWFpsRq9HXPxxdUlyuQymFLRy980J861p3csWKAjfhWicD wLfqbxp6llJ801PWJicDYtjdUxBgRgHCYmhUCyjQA4IHNoUM5fhmsuHtSlPZ9bbmoiAuSjAX3ddix5Vu EqIJ9zbpykOoRdYSbsHQWhhcehJEKpf2GjdxpkEX4l W8Poj9N4nQ9shEFpUAHtyWTiZrLbWUWuxe0ssBNjHPwdz8UdQFQ0ytI0fNCpaIGhMAOeGT37Xsebb1Ip HshtJIY2HEDnobUuh5Syy8huImJfrmSmF9pwK7DlYQVqOGXtXQVnUfZxcjYro7Eke5IhcPQtvAx2s3be XBZcLYMrzIvjq1wtJXW6NVXnC1J2fKCoy4uoMEooDG OajUE3gclqFPfrYDKpmmH2phrqFQaaPEDfzBS2mtcfGPxvIBUpEwY6evqaUVvgIHSyMPZ8EIhrh836HF E5KXbwDnqwMUafHBNrkcNflrFchTmlQGCnOKGsVHyaWXPdFFxrAGRpJFUxUrScrIlhgGjyeQ8lTzXyMw HuMSuoIE7aPUUtB6tbxKApASYfKHWvW0wiXeAqfB9jfQsrMVwobgVhNIv9BXC2OODthk0= CLINICAL DATA (test code = 3355) n2mflCGjABPakNNjJaIbRCKnWBSlu2qjHQFleXQjQlZtDaQoBuKuRcljiIFqDTCmYuVmk5zaa364sXZt z8laSICbHdD9jVGfPWHrpNBlE573q8rkg2jfupBbyQA3YGRuOTO0NWzphsSzdrY8RCaorOMhBnS4OMgw puThLBfzqvLkooQcCkb1PUPyZ021DTK8hSuuq7maNY E1WEQkLIGkTqNkTq1eaPUiE111ROYjJUUTHGNqbAy3CHXihwFcrtOmaZGKw279Q893r5syGQBwtcXfxT iOvaoxm7gmR564VKQleGFkloXmKlMeVECsyKZjpDX9MGUtBN8extitKpJjHD5abpvxBaMbDQ3nmwk1Eq HrHF8npnwoEwGnJNvvDSJvvjwoKSSbu3FlmqtfTG8u P4Yeh3C4mB4rkJWwBQToeXJaHbAlLDHjrl2yoJEmPFjcn2UyNXE8osO3jCLmuLZqRQMaBM01Dfehf6Gz PzrgCRO5CVRbisQzj8Lre5sbSxEfdeHdC8nmD7BuFUJlNNKkSFUzRbSfvsLgq5Eki7AwpKDyoGa3t3dn HUPjYJKrgMtgm9esUOD3GNUhZ2K1ePLrq1wpZNcgMS UwqHA5xvoaWNssPGEdesX6sryoPYvyJRMrxQR4iabkLXtkQAQlRvK1gdsoGFwbCCMbBHL3HRfyg505RS T5UMutFvktAMvqMSZwrsRxpnAaoAhxRTVrYARmLIszLFDmYCoaTRFaYIXgGbDizSnrrFdynO3eXiTkHs KsNBazJS5vCYPaF9cxbERzVQNlIURwR5yeOxYbkL0c fFgoYIvfepJwJTRhjdkrWHUhzTCnXFWrQmIejA3nFYPwmRPccY4nlVTtmEFnhL== SPECIMEN SOURCE (test code = 3377) d4fadIWtZSFdjZGxGsPmLORsRHXmu9diOHCsjBFvDsIwQuXwDpTrNckqhMFsGPSwVfPcq9tyb943hVFv z7wuGKBoKmO7fPJaPMBuvJVqF868z2ohr3xllaXpkAB5TGToUSQ1EHuwacYjyzZ7WZapcVCiNfZ0ADdn xkIfSRjxdbRbkqVqYgy4ICElD614TUE0hXain6wkNA I7NDSqGUZzDkRlWs7lwWUcF324USCzKIEVELBovFk7JFMenbQakgMvtBPRl694L990u0qcWYNfzpLjcM vYgoapq0znX314NZTlwFEabqPuSrBmWIJctEQuzPH1TRCfHK5wqnbsCrAyEG6wkjmkHoZkKN2dpjw9Pq YgIK9bmgrvQdCoWAotEIQmungpOXLta1IxrtuiSS9p O8Snp5C1lB5pqBWxNAPrzPQpJgTnIXYlwi5bpOIgYUwkl2ShOBD9aeO3jWOyxTSmGXTkBR97Bmzhl8Pa EcuiBAL7UXMlrwWfp3Vzs0pkSvUlkyWwM3mnT7AtVGNzWOGuNJUaYdIqrjSzo2Anz2GsyIJwqZc5p9vy QKMnURIzyZvts5pgZVH1XJOoJ0K3jHAje1pxBMsuCL OhmJC7cszxORijUECgptZ5njycJGynESHhuHO2ojjaPLetBYBhAeV0zrulWTuwWBYyDML8XYmmt432AH D7IKscVqwdETmuYHQzruDabzDleDxuHUEaRGGuIHuxWUScKAxuBTRmFWXpAmEtwSbliXxbdB6kXuBpVp KbWUrkEG2gWBUbR1pjiTMuLMSpWQYdA4pvMaRzkL8m aFxmMFxmczIwIFBFUklDQVJESUFMIEZMVUlEXHBhcn0= GROSS DESCRIPTION (test code = 3366) x9cpyEYzLQHpjPFtZmHgWIMwLHJdp4hqWAIncPXbItZmWwSpVeXlQzcpgGCwGUJoNbSho5lrw702dHHa n6czOQCyJhB1dNYaFBKbzTLqL249XMKoBGafv3usl2NdIXPtxXJub5J3RKDLlyowsFm8gEmiV13na3H7 NswkV2qpHLGlTTAeD2PbHA2jXWWrOms8XPJ6NGD1DO FwYAEzA4FkPR4eJDOeuMKdTHk4z7ywoTcpBOFeIBC1r6ogTKmdxaBfMY4ire1jePd6g2lbidDxQRLsXW DasOPWHQAzI9KpfCcgAt3bjDp1rUcgDlvzAFI9Hjz1PP2tfq12kso5iIlvSYNwplbyCeA3ZPvbZFKtfc nhPUy6UOlwQPYxwXxoAEiyWYEpdrznVAsrVMUpyKxf OWuxHJCzRoqvMNzkLUCkSXX9RFcer348YMG1TGtyx4mmd8olvRCxPgx5JIXtOtMfFqxuOKywi5Ktr7fg YSRzpi0hQNL6dOXqlAycf1W6aTRqDGZmiEVolyVfIXIySaF1RShyFQ2dwx57HBOkRDD8td2mePOwvKix nsLpuTGdQObbM4VrAWGlj566QQTuQ9WxMVYkj0R0iv FlCkMhMDBcsDW6wwE3FUAbQNf8bDUpqhG6aqWhlRVfL0camG13RbVskVOgC1QrbP10OdGkrWMwL2BnuG 50MmOdjSZyV9AbyK42PbOjjGSlRQFcsSIsXs3tlLYnzCQme6CxbHIjZIcvL58oy643SKCupsQwW8ynyA OhizkxhFAxdyciOXifdeC0LTHkJXTaCFxxMWKnSMJb DpKcqVUxFjGfSfBkjXucyQleZShrIaVnARLbHEynQ2fjVpClDyLhXsK8TMDgrSykZLBka20pvUXrnWLu PBaeGNCcxVYoe7QvypVjaWAuLKFgrJzbF1ZcUOmjYQNmQNUfTHIncjFJBAGzxJLfVYevUFGwQzJbZEDv cn0= STATEMENT OF ADEQUACY (test code = 2757) Satisfactory Gross assessment was performed at (test code = 2777) [facility], Department of Pathology, [address] [place] [address], [facility] [place] [address], Technical component was performed at (test code = 2778 ) [facility], Department of Pathology, [address] [place] [address], Professional component was performed at (test code = 2 779) [facility], Department of Pathology, [address] [place] [address], [facility] 16:28:00Medical Cytology Report Case: [id number] Authorizing Provider: Robbie New MD Collected: 05/07/2019 1920 Ordering Location: [place] [address] CCU Received: 05/08/2019 1445 Pathologist: Iman Yang MD Specimen: Pericardial PERICARDIAL FLUID (CYTOSPINS): - NEGATIVE FOR MALIGNANCY Signing Pathologist Direct Phone Line: [phone] signed by Iman Yang MD on 05/09/2019 at 4:28 [id number] effusion, cirrhosisPERICARDIAL MAGQP887 mls bloody fluid; 4 cytospinsCollected: 031 120Received: [id number] [facility], Department of P athology, [address] [place] [address], [facility], [address] [place] [phone], [facility], [address] [place] [address], TAW/CT, CARDIAC PERF REST AND [id number] 16:05:00Reason for exam:->CADFINAL REPORT PROCEDURE: MYOCARDIAL PERFUSION PET IMAGING (Rest/Stress)CPT CODE: 70437 INDICATION: Assess symptoms/risk factors of possible CAD [...] Verified Date/ Time: 05/09/2019 16:05:35 Reading Location: [address] [place] [facility] Myocardial Perfusion Pet/CT (Rest & Stress)2019-05-09 16:05:00Interface, External Ris In - 05/09/2019 4:07 PM CDTFINAL REPORT PROCEDURE: MYOCARDIAL PERFUSION PET IMAGING (Rest/Stress)CPT CODE: 94692 INDICATION: Assess symptoms/risk factors of possible CAD [...] MDReport Verified Date/Time: 05/09/2019 16:05:35 Reading Location: [address] [place] [facility]Com[facility] ulbyu2739-47-19 06:54:00* Test Item Value Reference Range Interpretation Comments Protein, Total (test code = 2885-2) 6.1 6.0- 8.3 gm/dL Specimen slightly hemolyzed Albumin (test code = 13788-9) 2.9 g/dL 3.5-5 L Specimen slightly hemolyzed Alkaline Phosphatase (test code = 6768-6) 116 U/L 40-150 Total Bilirubin (test code = 1974-2) 4.1 mg/dL 0.2-1.2 H Specimen slightly hemolyzed Sodium (test code = 2951-2) 131 meq/L 136-145 L Potassium (test code = 2823-3) 3.9 meq/L 3.5-5.1 Specimen slightly hemolyzed Chloride (test code = 5-0) 99 meq/L 98-107 CO2 (test code = 2027-9) 23 meq/L 22-29 BUN (test code = 3094-0) 22 mg/dL 7-21 H Creatinine (test code = 2160-0) 4.22 mg/dL 0.57-1.25 H Specimen slightly hemolyzed Glucose (test code = 2345-7) 108 mg/dL 70-105 H Calcium (test code = 87950-0) 8.1 mg/dL 8.4-10.2 L AST (test code = 1920-8) 30 U/L 5-34 Spe cimen slightly hemolyzed ALT (test code = 1742-6) 8 U/L 6-55 Spe cimen slightly hemolyzed EGFR (test code = 79578-5) 16 mL/min/1.73 sq m ESTIMATED GFR IS NOT ACCURATE CREATININE CLEARANCE IN PREDICTING GLOMERULAR FILTRATION RATE. ESTIMATED GFR IS NOT APPLICABLE FOR DIALYSIS PATIENTS. PHILLIP (test code = PHILLIP) Line Pilot ID - ULYSSES MSpecimen slightly icteric Lab Interpretation (test code = 96944-9) Abnormal [facility] [id number] 06:54:00* Test Item Value Reference Range Interpretation [...] GFR IS NOT APPLICABLE FOR DIALYSIS PATIENTS. Line Pilot ID - ULYSSES MSpecimen slightly ictericCBC W/PLT COUNT & AUTO [...] (test code = 2801) 1 % 0-1 [id number] 06:50:00* Test Item Value Reference Range Interpretation Comments MAGNESIUM (BEAKER) (test code = 627) 2.1 mg/dL 1.6-2.6 Specimen slightly hemolyzed Line Pilot ID - ULYSSES [id number] 06:50:00* Test Item Value Reference Range Interpretation Comments PHOSPHORUS (BEAKER) (test code = 604) 3.4 mg/dL 2.3-4.7 Specimen slightly hemolyzed Line Pilot ID - ULYSSES MLimited 2D Rzdnhqbtdlylcl4114-93-68 13:37:26Ejection FractionSLEH ECHO HEARTLAB MKCKESSON CPACSInterface, External Ris In - 05/08/2019 1:37 PM CDTTransthoracic Echocardiography Report (TTE) Demographics Patient Name INDRA GALVAN Date of Study 05/08/2019 YAN CORDERO Gender Male Visit Number [id number] Race Unknown Room Number 6213 Number Date of 1980 Referring Physician ROBBIE NEW Age 38 year(s) [employer] Renny Yepez Internet [employer] Commerce Specialist Nick Navarro I nterpreting Brandy Jackson MD Procedure Type of Study TTE procedure:LIMITED 2D ECHOCARDIOG FANNY (STAT) Indications:Suspected Pericardial conditions.Clinical HistoryHGB 8.0H CT 25.0 %ALCOHOL ABUSEANEMIAHTNESRDOBESITHYTRACHEOSTOMY 2019Height: 71 inches We ight: 80.74 kg (178 lbs) BSA: 2.01 m^2 BMI: 24.83 kg/m^2HR: 82 bpm BP: 95/61 mmH g Summary Limited study for a follow up pericardiocentesis. Trivial to small re sidual pericardial effusion noted. Signature Electronically signed by Vic Caruso MD([facility]) on 05/08/2019 01:37 PM Findings Technical Quality: Technically adequate e xam. Left Ventricle Normal left ventricular chamber size. Normal wall thickness. Normal overall left ventricular systolic function. No apparent segmental wall motion abnormalities. Estimated LVEF by qualitative assessment is normal (>60%) . Left Atrium LA size is fsmi-jf-ookxcecons enlarged . Right Ventricle Normal right ventricle [...] Ao Root S of Yasmin.: 3.23 cm [facility] W/Doppler(CW/PW/Color)2019-05-08 09:47:52Ejection FractionSLEH ECHO HEARTLAB MKCKESSON CPACSInterface, External Ris In - 05/08/2019 9:48 AM CDTTransthoracic Echocardiography Report (TTE) Demographics Patient Name INDRA GALVAN Date of Study 05/07/2019 YAN CORDERO Gender Male Visit Number [id number] Race Unknown Room Number 6213 Number Date of 1980 Referring Robbie New MD Physician Age 38 year(s) Assembl[employer] Aneudy Jerez Interpreting Physician MELVA Jackson Fellow [...] A moderate-large circumferential pericardial effusion is present. [facility] HospitalManual Qheqsrcooeun9462-50-77 07:53:00* Test Item Value Reference Range Interpretation [...] 3438) Adequate PHILLIP (test code = PHILLIP) Line Pilot ID - Ivonne Espinal comments: Slide comm ents: Lab Interpretation (test code = 59460-9) Abnormal [facility] W/PLT COUNT & AUTO [id number] 07:53:00* Test Item Value Reference Range Interpretation [...] (CELLAVISION)(BEAKER) (test code = 3438) Cheryl quate Line Pilot ID - Ivonne Espinal comments: Slide comments: Afcmuowgbekmn0541-51-95 04:01:00* Test Item Value Reference Range Interpretation Comments Procalcitonin (test code = 42191-0) 3.64 ng/mL <0.05 H PHILLIP (test code = PHILLIP) SEPSIS RISK (ng/mL)Low: 0.05-0.50Intermediate: 0.51-2.00High: >=2.01 Lab Interpretation (test code = 92957-3) Abnormal [facility] CenterAigpdgUCFNWZEPELHTU1472-43-06 04:01:00* Test Item Value Reference Range Interpretation Comments PROCALCITONIN (BEAKER) (test code = 3036) 3.64 ng/mL <0.05 H SEPSIS RISK (ng/mL)Low: 0.05-0.50Intermediate: 0.51-2.00High: > =2.01BASIC METABOLIC [id number] 03:47:00* Test Item Value Reference Range Interpretation [...] GFR IS NOT APPLICABLE FOR DIALYSIS PATIENTS. Line Pilot ID - LAUREN WSpecimen moderately ducqkexXTKJZCZRMS2963-30-11 03:44:00* Test Item Value Reference Range Interpretation Comments PHOSPHORUS (BEAKER) (test code = 604) 2.2 mg/dL 2.3-4.7 L Line Pilot ID - LAUREN SZPGNNIMFF5488-74-44 03:44:00* Test Item Value Reference Range Interpretation Comments MAGNESIUM (BEAKER) (test code = 627) 1.8 mg/dL 1.6-2.6 Line Pilot ID - LAUREN WPrepare Leuko-Red ZFQ2778-19-28 23:54:00* Test Item Value Reference Range Interpretation Comments CROSSMATCH (test code = 2264) COMPATIBLE Unit ABO (test code = 5403541) B Pos UNIT NUMBER (test code = 934-0) [id number] Status (test code = 6160368) TX_TIMEINCHART Blood Bank Product (test code = 2263) RED BLOOD CELLS PRODUCT CODE (test code = 933-2) [id number] [facility] HospitalCarotid doppler huymzhifw3879-52-93 16:57:29 Ejection FractionSLEH ECHO HEARTLAB MKCKESSON CPACSRight Impression1. The financial internship al carotid artery is within normal limits.2. [...] PM CDTPV LAB - Carotid Duplex Study Lucy perrin Patient Name INDRA GALVAN Date of Study 05/06/2019 YAN CORDERO Age 38 Visit Number [id number] Gender Male Accession Elizabeth tinajero [id number] Date of 1980 Referring Radha Acevedora Room Number 6213 Physician SARAH Assembl[employer] Cb Maki RVS Interpreting Karen Blackwell, Physician ProcedureType of Study: Cerebral: Carotid, CAROTID [...] left side. - Additional Measurements:ICAPSV/CCAPS V 0.96.ICAEDV/CCAEDV 1.42.[facility] W/PLT COUNT & AUTO [id number] 11:24:00* Test Item Value Reference Range Interpretation [...] (CELLAVISION)(BEAKER) (test code = 3438) Cheryl quate Line Pilot ID - Marcella OverholtUser comments: Slide comments: COMPREHENSIVE METABOLIC [id number] 07:21:00* Test Item Value Reference Range Interpretation [...] GFR IS NOT APPLICABLE FOR DIALYSIS PATIENTS. 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 [employer] Electrical Aneudy Jerez Internet [employer] Specialist Joanna Whitley Interpreting Pratik Alexis MD Procedure [...] Velocity: 2.75 m/s TR Gradient: 30.26 mmHg [facility] HospitalUrine olrfrrg8171-59-08 10:47:00* Test Item Value Reference Range Interpretation Comments Result (test code = 6463-4) <10,000 col/mL skin chase [facility] HospitalCBC W/PLT COUNT & AUTO [id number] 09:56:00* Test Item Value Reference Range Interpretation [...] (CELLAVISION)(BEAKER) (test code = 3438) Cheryl quate Line Pilot ID - Giselle Quiñones comments: Slide comments: WBC: SEGMENTED WI TH TOXIC GRANULATIONS PRESENT ECG 12 rtfj9044-74-87 06:34:13Interface, External Ris In - 05/06/2019 6:34 AM CDTVentricular Rate 128 BPMAtrial Rate 89 BPMQRS Duration 94 msQ-T Interval 336 msQTC Calculation(Bazett) 490 msR Douglas 151 degreesT Douglas -88 degreesAtrial fibrillationLeft posterior fascicular blockST & T wave abnormality, consider inferior ischemiaST & T wave abnormality, consider anterolateral ischemiaAbnormal ECGWhen compared with ECG of 05-MAY-2019 20:52,Atrial fibrillation PresentInverted T waves have replaced nonspecific T wave abnormality in Inferior leadsInverted T waves have replaced nonspecific T wave abnormality in Anterolateral leadsConfirmed by MD CHELA, INDRA Simon ([id number]) on 05/06/2019 6:34:11 [facility] CenterCOMPREHENSIVE METABOLIC [id number] 06:25:00* Test Item Value Reference Range Interpretation [...] GFR IS NOT APPLICABLE FOR DIALYSIS PATIENTS. Line Pilot ID - ULYSSES MSpecimen moderately tlhyiiyDZPOKMJJI3252-04-48 06:24:00* Test Item Value Reference Range Interpretation Comments MAGNESIUM (BEAKER) (test code = 627) 1.9 mg/dL 1.6-2.6 Line Pilot ID - ULYSSES MBASIC METABOLIC [id number] 21:58:00* Test Item Value Reference Range Interpretation [...] GFR IS NOT APPLICABLE FOR DIALYSIS PATIENTS. Line Pilot ID - BSSpecimen moderately ictericTroponin [id number] 21:56:00* Test Item Value Reference Range Interpretation Comments Troponin I (test code = 69192-2) <0.01 0-0.03 PHILLIP (test code = PHILLIP) [...] failure, acidosis, acute neurological disease, and persistent tachyarrhythmia.Line Pilot ID - BS Lab Interpretation (test code = 73875-8) Normal [facility] CenterTROPONIN [id number] 21:56:00* Test Item Value Reference Range Interpretation [...] acidosis, acute neurological disease, and per sistent tachyarrhythmia.Line Pilot ID - GPCWFNJZYVF3151-32-88 21:49:00* Test Item Value Reference Range Interpretation Comments MAGNESIUM (BEAKER) (test code = 627) 1.8 mg/dL 1.6-2.6 Specimen slightly hemolyzed Line Pilot ID - BSCBC W/PLT COUNT & AUTO [id number] 21:32:00* Test Item Value Reference Range Interpretation [...] 2801) 1 % 0-1 Hepatitis B surface wcmstko2166-98-35 17:35:00* Test Item Value Reference Range Interpretation Comments HBsAg Screen (test code = 5195-3) Nonreactive Nonreactive PHILLIP (test code = PHILLIP) Line Pilot ID - BS Lab Interpretation (test code = 37075-4) Normal [facility] HospitalHEPATITIS B SURFACE [id number] 17:35:00* Test Item Value Reference Range Interpretation Comments HEPATITIS B SURFACE ANTIGEN (2) (BEAKER) (test code = 2585) Nonreactive Nonreactive Line Pilot ID - BSOccult blood, curcs2967-86-03 14:45:00* Test Item Value Reference Range Interpretation Comments Occult blood (test code = 2335-8) Negative Negative Lab Interpretation (test code = 98314-2) Normal [facility] HospitalOCCULT BLOOD, [id number] 14:45:00* Test Item Value Reference Range Interpretation Comments FECAL OCCULT BLOOD (BEAKER) (test code = 618) Negative Negative Qtjxosus0539-36-09 10:41:00* Test Item Value Reference Range Interpretation Comments Ferritin (test code = 2276-4) 1081 ng/mL 5-275 H PHILLIP (test code = PHILLIP) Line Pilot ID - AAHAMID Lab Interpretation (test code = 39604-4) Abnormal [facility] HospitalFERRITIN2020-03-09 10:41:00* Test Item Value Reference Range Interpretation Comments FERRITIN (BEAKER) (test code = 361) 1081 ng/mL 5-275 H Line Pilot ID - AAHAMIDDirect AHG (LUMA)/Direct Umeggj7251-81-74 10:38:00* Test Item Value Reference Range Interpretation Comments Direct AHG-IGG (test code = 1006-6) NEGATIVE Direct AHG-C3B, C3D (test code = 1003-3) NEGATVIE [facility] HospitalABORH, useusv0574-25-36 10:28:00* Test Item Value Reference Range Interpretation Comments ABO Grouping (test code = 2588) B Rh Factor (test code = 2589) POS [facility] HospitalCOMPREHENSIVE METABOLIC [id number] 10:25:00* Test Item Value Reference Range Interpretation [...] GFR IS NOT APPLICABLE FOR DIALYSIS PATIENTS. Line Pilot ID - ROZINA LSpecimen moderately ictericIron, TIBC, % sat. (without ferritin)2019-05-05 10:21:00* Test Item Value Reference Range Interpretation Comments Iron (test code = 2498-4) 88.0 ug/dL 40-160 TIBC (test code = 2500-7) 130 ug/dL 250-450 L Iron % Saturation (test code = 2502-3) 68 % 20-55 H PHILLIP (test code = PHILLIP) Line Pilot ID - ROZINA L Lab Interpretation (test code = 11195-9) Abnormal [facility] CenterIRON, TIBC, % SAT. (WITHOUT FERRITIN)2019-05-05 10:21:00* Test Item Value Reference Range Interpretation Comments IRON (BEAKER) (test code = 547) 88.0 ug/dL 40.0-160.0 TOTAL IRON BINDING CAPACITY (BEAKER) (test code = 769) 130 ug/dL 250-450 L IRON % SATURATION (2) (BEAKER) (test code = 2590) 68 % 20-5 5 H Line Pilot ID - ROZINA LBILIRUBIN, [id number] 10:20:00* Test Item Value Reference Range Interpretation Comments BILIRUBIN DIRECT (BEAKER) (test code = 706) 3.0 mg/dL 0.1-0.5 H Line Pilot ID - ROZINA LCBC W/PLT COUNT & AUTO [id number] 10:08:00* Test Item Value Reference Range Interpretation [...] code = 2801) 1 % 0-1 Reticulocyte gcbzj7648-17-64 10:04:00* Test Item Value Reference Range Interpretation Comments % Retic (test code = 82558-8) 2.3 % 0.5-1.8 H PHILLIP (test code = PHILLIP) Line Pilot ID - 6000 Lab Interpretation (test code = 15143-2) Abnormal [facility] CenterRETICULOCYTE [id number] 10:04:00* Test Item Value Reference Range Interpretation Comments RETICULOCYTE COUNT PCT (BEAKER) (test code = 575) 2.3 % 0.5- 1.8 H Line Pilot ID - 6000Lactic acid, elgsvn0557-48-32 00:50:00* Test Item Value Reference Range Interpretation Comments Lactate, Venous (test code = 2872) 2.6 mmol/L 0.5-2.2 H PHILLIP (test code = PHILLIP) Line Pilot ID - PIAYA LSpecimen slightly icteri c Lab Interpretation (test code = 87912-2) Abnormal [facility] HospitalLACTIC ACID, [id number] 00:50:00* Test Item Value Reference Range Interpretation Comments LACTATE BLOOD VENOUS (2) (BEAKER) (test code = 2872) 2.6 mmol/L 0 .5-2.2 H Line Pilot ID - PIAYA LSpecimen slightly ictericStrep pneumoniae vvzyggz8456-00-49 21:50:00* Test Item Value Reference Range Interpretation Comments Strep pneumoniae Antigen (test code = 91952-9) Presump tive negative for pneumococcal pneumonia - [...] the test. Lab Interpretation (test code = 59990-2) Normal [facility] CenterTREP PNEUMONIAE [id number] 21:50:00* Test Item Value Reference Range Interpretation Comments STREP PNEUMONIAE ANTIGEN (BEAKER) (test code = 1615) P resumptive negative for pneumococcal pneumonia - see comment Presumptive negative for pneumococcal pneumonia - see commen Presumptive negative for pneumococcal pneumonia, suggesting no current or recent pneumococcal infection. Infection due to S. pneumoniae cannot be ruled out since the antigen present in the sample may be below the detection limit of the test. Legionella antigen, kwzhe1370-12-20 21:49:00* Test Item Value Reference Range Interpretation Comments Legionella Urine Antigen (test code = 43271-9) Negative - see comme nt Negative for L. pneumophila serogroup 1 antigen, suggesting no recent or current infection with this serogroup. Legionellosis cannot be ruled out since other serogroups and species may cause disease. [facility] HospitalLEGIONELLA ANTIGEN, [id number] 21:49:00* Test Item Value Reference Range Interpretation Comments L. PNEUMOPHILA SEROGP 1 UR AG ([facility]) (test code = 11 56) Negative - see comment Negative for L. pneu mophila serogroup 1 antigen, suggesting no recent or current infection with this serogroup. Legionellosis cannot be ruled out since other serogroups and species may cause disease. Type and screen, automated ([facility] and [facility] only)2019-05-04 21:22:00* Test Item Value Reference Range Interpretation Comments ABO/RH AUTOMATED ([facility]) (test code = 2260) B POSITIVE Ab Scrn (test code = 890-4) NEGATIVE [facility] HospitalPROCALCITONIN2020-03-08 20:32:00* Test Item Value Reference Range Interpretation Comments PROCALCITONIN ([facility]) (test code = 3036) 14.51 ng/mL <0.05 HH SEPSIS RISK (ng/mL)Low: 0.05-0.50Intermediate: 0.51-2.00High: > =2.01Urinalysis w/Microscopic + Reflex to Ttbvzmf5432-79-54 20:25:00* Test Item Value Reference Range Interpretation Comments Color, UA (test code = 5778-6) Yellow Clarity, UA (test code = 5767-9) Hazy Specific [place], UA (test code = 5811-5) 1.011 1.001-1.035 pH, UA (test code = 5803-2) 5.5 5.0-8.0 Protein, UA (test code = 41382-6) 100 mg/dL Negative A Glucose, UA (test code = 365) 100 mg/dL Negative A Ketones, UA (test code = 2514-8) Negative Negative Bilirubin, UA (test code = 86453-7) Negative Negative Blood, UA (test code = 40743-5) Negative Negative Nitrite, UA (test code = 5802-4) Negative Negative Leukocytes, UA (test code = 5799-2) Negative Negative Urobilinogen, UA (test code = 81756-9) 0.2 mg/dL 0.2-1 RBC, UA (test code = 13812-4) 7 /HPF WBC, UA (test code = 5821-4) 12 /HPF Bacteria, UA (test code = 84970-9) Occasional Mucus (test code = 8247-9) Rare Squam Epithel, UA (test code = 44081-8) 18 /HPF Hyaline Casts, UA (test code = 10560-1) 78 /LPF Casts (test code = 9842-6) 70 /LPF Crystals, Urine (test code = 94690-6) Occasional Yeast (test code = 22773-5) Moderate Specimen Source (test code = 2795) PHILLIP (test code = PHILLIP) Line Pilot ID - [auto]Line Pilot ID - tech Lab Interpretation (test code = 25977-0) Abnormal [facility] CenterURINALYSIS W/ REFLEX URINE [id number] 20:25:00* Test Item Value Reference Range Interpretation [...] 1585) Moderate SOURCE(BEAKER) (test code = 2795) Line Pilot ID - [auto]Line Pilot ID - techPT/vZXS9984-11-75 20:11:00* Test Item Value Reference Range Interpretation Comments Protime (test code = 5902-2) 18.9 11.9- 14.2 seconds H INR (test code = 6301-6) 1.6 <=5.9 PTT (test code = 12194-0) 40.7 22.5- 36.0 seconds H PHILLIP (test code = PHILLIP) Effective 07/24/2018: PT Refe rence Range ChangeNew: 11.9- 14.2 Previous: 11.7-14.7 RECOMMENDED COUMADIN/WARFARIN INR THERAPY RANGESSTANDARD DOSE: 2.0-3.0 Includes: PROPHYLAXIS for venous thrombosis, sys temic embolization; TREATMENT for venous thrombosis and/or pulmonary embolus.HIGH RISK: Target INR is 2.5-3.5 for patients wiht mechanical heart valves. Lab Interpretation (test code = 82448-8) Abnormal [facility] CenterPT/[id number] 20:11:00* Test Item Value Reference Range Interpretation [...] Range Interpretation Comments BNP (test code = 80460-5) 612 pg/mL 0-100 H PHILLIP (test code = PHILLIP) Line Pilot ID - DB Lab Interpretation (test code = 32422-9) Abnormal [facility] HospitalRapid Influenza A&B Gphbrj8624-31-24 20:00:00* Test Item Value Reference Range Interpretation Comments Rapid Influenza A Antigen (test code = 39559-1) Negative Negative, Inconclusive Rapid influenza B Antigen (test code = 52565-2) Negative Negative, Inconclusive Lab Interpretation (test code = 43210-4) Normal [facility] HospitalB-TYPE NATRIURETIC FACTOR (BNP)2019-05-04 20:00:00 * Test Item Value Reference Range Interpretation Comments B-TYPE NATRIURETIC PEPTIDE (BEAKER) (test code = 700) 612 pg/mL 0-100 H Line Pilot ID - DBTROPONIN V5904-33-99 20:00:00* Test Item Value Reference Range Interpretation [...] acidosis, acute neurological disease, and per sistent tachyarrhythmia.Line Pilot ID - DBRAPID INFLUENZA A&B CKZBPJ9908-55-10 20:00:00* Test Item Value Reference Range Interpretation Comments RAPID INFLUENZA A AG (BEAKER) (test code = 1622) Negative Negative, Inconclusive RAPID INFLUENZA B AG (BEAKER) (test code = 1623) Negative Negative, Inconclusive HRIQRMHBQU6142-94-61 19:54:00* Test Item Value Reference Range Interpretation Comments PHOSPHORUS (BEAKER) (test code = 604) 2.9 mg/dL 2.3-4.7 Line Pilot ID - FFZWUEDPHOB1144-02-21 19:54:00* Test Item Value Reference Range Interpretation Comments MAGNESIUM (BEAKER) (test code = 627) 2.0 mg/dL 1.6-2.6 Line Pilot ID - DBCOMPREHENSIVE METABOLIC OTEQM9181-45-64 19:54:00* Test Item Value Reference Range Interpretation [...] GFR IS NOT APPLICABLE FOR DIALYSIS PATIENTS. Line Pilot ID - DBSpecimen slightly ictericCBC W/PLT COUNT [...] = 2801) 1 % 0-1 LACTIC ACID, [id number] 19:48:00* Test Item Value Reference Range Interpretation Comments LACTATE BLOOD VENOUS (2) (BEAKER) (test code = 2872) 2.7 mmol/L 0 .5-2.2 H Specimen slightly hemolyzed Line Pilot ID - DBSpecimen slightly ictericCRITICAL OXFB2165-74-68 18:47:Juanpablo Arenas MD 05/04/2019 9:12 PMCritical CarePerformed by: Juanpablo Calhoun, MDAuthorized by: Juanpablo Calhoun MD Total critical [...] condition and r eview of old charts. [facility] HospitalRAD, CHEST, 1 VIEW, NON DEPT 2019-05-04 18:08:00Reason for exam:->weaknessShould this be performed at the bedside?->YesFINAL REPORT EXAM: Chest one view COMPARISON: December 22, 2018 Clinical history: Weakness FINDINGS: There is persistent cardiomegaly. There is interval improvement in pulmonary edema. The right internal jugular chest tunneled dialysis catheter appears unchanged in position. The regional osseous structures are unremarkable Signed: Samara Haines Verified Date/Time: 05/04/2019 18:08:08 Reading Location: [facility] C0[facility] Transitional Reading Room chest 1 view portable / dzhofzf2422-26-13 18:08:00Interface, External Ris In - 05/04/2019 6:10 PM CDTFINAL REPORT EXAM: Chest one view COMPARISON: December 22, 2018 Clinical history: Weakness FINDINGS: There is persistent cardiomegaly. There is interval improvement in pulmonary edema. The right internal jugular chest tunneled dialysis catheter appears unchanged in position. The regional osseous structures are unremarkable Signed: Sadiq Hainesort Verified Date/Time: 05/04/2019 18:08:08 Reading Location: [facility] C0[facility] Transitional Reading Room [facility] METABOLIC [id number] 11:09:00* Test Item Value Reference Range Interpretation [...] GFR IS NOT APPLICABLE FOR DIALYSIS PATIENTS. Line Pilot ID - LMSpecimen slightly ictericHEPATIC FUNCTION KQVSB4952-82-68 11:04:00* Test Item Value Reference Range Interpretation [...] (test code = 347) 12 U/L 6-55 Line Pilot ID - LMSpecimen slightly ictericPROTHROMBIN TIME/[id number] 10:47:00 * Test Item Value Reference Range [...] mechanical heart valves.CBC W/PLT COUNT & AUTO OXWYNWEEQAMD7434-54-12 10:40:00* Test Item Value Reference Range Interpretation [...] = 2801) 0 % 0-1 BASIC METABOLIC [id number] 11:22:00* Test Item Value Reference Range Interpretation [...] GFR IS NOT APPLICABLE FOR DIALYSIS PATIENTS. Line Pilot ID - NTPSpecimen slightly ictericHEPATIC FUNCTION [id number] 11:09:00* Test Item Value Reference Range Interpretation [...] (test code = 347) 16 U/L 6-55 Line Pilot ID - NTPSpecimen slightly ictericCBC W/PLT COUNT [...] = 2801) 0 % 0-1 No clotPROTHROMBIN TIME/[id number] 11:03:00* Test Item Value Reference Range Interpretation [...] patie nts wiht mechanical heart valves.COMPREHENSIVE METABOLIC [id number] 12:23:00* Test Item Value Reference Range Interpretation [...] APPLICABLE FOR DIALYSIS PATIENTS. Specimen slightly ictericBILIRUBIN, [id number] 12:18:00* Test Item Value Reference Range Interpretation Comments BILIRUBIN DIRECT (BEAKER) (test code = 706) 2.4 mg/dL 0.1-0.5 H CBC W/PLT COUNT & AUTO BJAYMNBXTZOP0415-15-81 12:16:00* Test Item Value Reference Range Interpretation [...] code = 2801) 1 % 0-1 PROTHROMBIN TIME/XJV8812-08-32 12:09:00* Test Item Value Reference Range Interpretation [...] patie nts wiht mechanical heart valves.HLA TYPING [id number] 21:42:00* Test Item Value Reference Range Interpretation [...] and its performance characteristics determined by the [facility] Laboratory. It has not been [...] to perform high complexity clinical laboratory testing. [facility] HospitalHLA TYPING [id number] 21:42:00* Test Item Value Reference Range Interpretation [...] and its performance characteristics determined by the [facility] Laboratory. It has not been [...] to perform high complexity clinical laboratory testing. [facility] HospitalCOMPREHENSIVE METABOLIC [id number] 12:19:00* Test Item Value Reference Range Interpretation [...] APPLICABLE FOR DIALYSIS PATIENTS. Specimen moderately ictericBILIRUBIN, [id number] 12:18:00* Test Item Value Reference Range Interpretation Comments BILIRUBIN DIRECT (BEAKER) (test code = 706) 4.1 mg/dL 0.1-0.5 H U/S, PELVIS, WITH [id number] 11:35:00Reason for Exam:->esrd/kidney transplant evaluationFINAL REPORT Pelvic [...] Garcia Verified Date/Time: 02/03/2019 11:35:01 Reading Location: [address] Radiology Reading Room pelvis with sludynj6461-40-13 11:35:00Interface, External Ris In - 02/03/2019 11:37 [...] Verified Date/Time: 02/03/2019 11:35:01 Reading Locati on: [address] Radiology Reading Room [facility] HospitalPROTHROMBIN TIME/[id number] 11:12:00* Test Item Value Reference Range Interpretation [...] mechanical heart valves.CBC W/PLT COUNT & AUTO [id number] 11:10:00* Test Item Value Reference Range Interpretation [...] 2801) 1 % 0-1 AB SPECIFICITY CLASS [id number] 09:48:00* Test Item Value Reference Range Interpretation Comments AB Specificity Class I (test code = 3457) NO CLASS I A NTIBODY DETECTED WITH MFIs > 4000 PHILLIP (test code = PHILLIP) Disclaimer: This test was de veloped and its performance characteristics determined by the [facility] Laboratory. It has not been [...] to perform high complexity clinical laboratory testing. [facility] PRA CLASS I WITH REFLEX TO ANTIBODY [id number] 10:06:00* Test Item Value Reference Range Interpretation Comments Flow Class I Percent Positive (test code = 3229) 20 PHILLIP (test code = PHILLIP) Disclaimer: This test was de veloped and its performance characteristics determined by the [facility] Laboratory. It has not been [...] to perform high complexity clinical laboratory testing. [facility] PRA CLASS II WITH REFLEX TO ANTIBODY HTEGHWDUWWC0338-02-06 10:06:00* Test Item Value Reference Range Interpretation Comments Flow Class II Percent Positive (test code = 3231) 0 PHILLIP (test code = PHILLIP) Disclaimer: This test was de veloped and its performance characteristics determined by the [facility] Laboratory. It has not been [...] to perform high complexity clinical laboratory testing. [facility] WOOXH8774-05-39 07:41:00* Test Item Value Reference Range Interpretation Comments SCAN RESULT (test code = 3430060) Lahrnzpogjn0756-48-71 19:31:00* Test Item Value Reference Range Interpretation Comments Haptoglobin (test code = 4542-7) 14 mg/dL 14-258 Lab Interpretation (test code = 43678-6) Normal [facility] HospitalHAPTOGLOBIN2019-11-23 19:31:00* Test Item Value Reference Range [...] % 20-5 5 H Vitamin B12 and Dngnub2758-03-24 19:16:00* Test Item Value Reference Range Interpretation Comments Vitamin B12 (test code = 2132-9) 1988 pg/mL 213-816 H Folate (test code = 2284-8) 17.8 ng/mL >=7.0 Lab Interpretation (test code = 35495-8) Abnormal [facility] HospitalVITAMIN B12 AND VIWARF2324-47-75 19:16:00* Test Item Value Reference Range Interpretation Comments VITAMIN B12 (BEAKER) (test code = 774) 1988 pg/mL 213-816 H FOLATE (BEAKER) (test code = 362) 17.8 ng/mL >=7.0 UVIRKFNS2273-46-55 19:04:00* Test Item Value Reference Range Interpretation Comments FERRITIN (BEAKER) (test code = 361) 1523 ng/mL 5-275 H Lactate dehydrogenase (LDH)2019-01-18 18:27:00* Test Item Value Reference Range Interpretation Comments LDH (test code = 2532-0) 192 U/L 125-220 Lab Interpretation (test code = 88816-0) Normal [facility] HospitalLACTATE DEHYDROGENASE (LDH)2019-01-18 18:27:00* Test Item Value Reference Range Interpretation Comments LACTATE DEHYDROGENASE (BEAKER) (test code = 635) 192 U/L 125-2 20 Hemoglobin and sohqhllrpi2916-96-45 11:26:00* Test Item Value Reference Range Interpretation Comments Hemoglobin (test code = 786-4) 7.5 13.7- 17.5 GM/DL L Hematocrit (test code = 4544-3) 23.0 % 40.1-51 L Lab Interpretation (test code = 89933-7) Abnormal [facility] HospitalHEMOGLOBIN AND XBETAONNPD5438-83-38 11:26:00* Test Item Value Reference Range Interpretation [...] K/CU MM L MPV (test code = 97272-4) 10.1 fL 9.4-12.4 nRBC (test code = 413) 0 0- 0 /100 WBC Lab Interpretation (test code = 23198-8) Abnormal [facility] (HEMO[facility] ONLY)2019-01-18 03:09:00* Test Item Value [...] WBC 0 -0 Alpha fetoprotein (AFP), tumor tdtooa7035-50-59 17:58:00* Test Item Value Reference Range Interpretation Comments Alpha-Fetoprotein (test code = 1834-1) 2.7 ng/mL <10.0 Lab Interpretation (test code = 20494-2) Normal [facility] HospitalALPHA FETOPROTEIN (AFP), TUMOR LIUHCA9708-70-64 17:58:00* Test Item Value Reference Range Interpretation Comments ALPHA-FETOPROTEIN (BEAKER) (test code = 1094) 2.7 ng/mL <10.0 BASIC METABOLIC SGUXC0912-30-64 17:09:00* Test Item Value Reference Range Interpretation [...] FOR DIALYSIS PATIENTS. Specimen moderately ictericHEPATIC FUNCTION AGDBO7610-64-46 17:08:00* Test Item Value Reference Range Interpretation [...] Specimen moderately ictericCBC W/PLT COUNT & AUTO LUCNWWWPXTAY7538-79-29 16:55:00* Test Item Value Reference Range Interpretation [...] code = 2801) 0 % 0-1 PROTHROMBIN TIME/QYD6546-67-19 16:52:00* Test Item Value Reference Range Interpretation [...] patie nts wiht mechanical heart valves.BASIC METABOLIC HMYPL7358-41-92 07:35:00* Test Item Value Reference Range Interpretation [...] NOT APPLICABLE FOR DIALYSIS PATIENTS. Specimen markedly wcgeriyJBXMYXRIL7355-39-93 07:18:00* Test Item Value Reference Range Interpretation Comments MAGNESIUM (BEAKER) (test code = 627) 2.1 mg/dL 1.6-2.6 HEPATIC FUNCTION LLHOP7835-70-97 07:18:00* Test Item Value Reference Range Interpretation [...] 347) 16 U/L 6-55 Specimen markedly ictericPROTHROMBIN TIME/EVL4621-87-46 06:41:00* Test Item Value Reference Range Interpretation [...] = 413) 0 /100 WBC 0 -0 AOQWOAAHR3696-04-28 05:08:00* Test Item Value Reference Range Interpretation Comments MAGNESIUM (BEAKER) (test code = 627) 2.0 mg/dL 1.6-2.6 HEPATIC FUNCTION MGEOV3339-98-21 05:08:00* Test Item Value Reference Range Interpretation [...] 18 U/L 6-55 Specimen markedly ictericBASIC METABOLIC QJJDE8359-36-28 05:08:00* Test Item Value Reference Range Interpretation [...] APPLICABLE FOR DIALYSIS PATIENTS. Specimen markedly ictericPROTHROMBIN TIME/KWS7799-29-83 04:55:00* Test Item Value Reference Range Interpretation [...] = 413) 0 /100 WBC 0 -0 Sowlfah8105-29-08 10:14:00* Test Item Value Reference Range Interpretation Comments Ethanol Lvl (test code = 5643-2) <10 <=10 mg/dL Lab Interpretation (test code = 28975-1) [facility] 10:14:00* Test Item Value Reference Range Interpretation Comments ETHANOL (BEAKER) (test code = 400) < mg/dL <=10 BASIC METABOLIC PWRVY5053-37-25 05:20:00* Test Item Value Reference Range Interpretation [...] FOR DIALYSIS PATIENTS. Specimen markedly ictericHEPATIC FUNCTION YSURY7356-09-45 05:19:00* Test Item Value Reference Range Interpretation [...] Specimen markedly ictericCBC W/PLT COUNT & AUTO HRCTAPDXNIPF6713-88-94 05:05:00 * Test Item Value Reference Range [...] = 2801) 0 % 0-1 BASIC METABOLIC [id number] 22:30:00* Test Item Value Reference Range Interpretation [...] FOR DIALYSIS PATIENTS. Specimen markedly ictericHEPATIC FUNCTION QWBRJ5805-72-21 22:26:00* Test Item Value Reference Range Interpretation [...] = 347) 15 U/L 6-55 Specimen markedly ictericPT/CERM9422-89-05 22:22:00* Test Item Value Reference Range Interpretation [...] mechanical heart valves.CBC W/PLT COUNT & AUTO FPUERKUQDNHO6442-02-09 22:19:00* Test Item Value Reference Range Interpretation [...] code = 2801) 1 % 0-1 BLOOD RZNPOQB7097-47-38 11:00:00* Test Item Value Reference Range Interpretation Comments CULTURE (BEAKER) (test code = 1095) No growth in 5 days HEPATIC FUNCTION GQHEM5321-41-86 09:42:00* Test Item Value Reference Range Interpretation [...] 347) 17 U/L 6-55 Specimen markedly ictericBLOOD VACKPON6000-92-97 08:00:00* Test Item Value Reference Range Interpretation Comments CULTURE (BEAKER) (test code = 1095) No growth in 5 days BLOOD CTOONRI0440-60-83 08:00:00* Test Item Value Reference Range Interpretation Comments CULTURE (BEAKER) (test code = 1095) No growth in 5 days BLOOD IBVBUKU7962-55-13 08:00:00* Test Item Value Reference Range Interpretation Comments CULTURE (BEAKER) (test code = 1095) No growth in 5 days LXWWNJWURBE8596-88-68 05:03:00* Test Item Value Reference Range Interpretation Comments HAPTOGLOBIN (BEAKER) (test code = 366) < mg/dL 14-258 L BASIC METABOLIC [id number] 05:02:00* Test Item Value Reference Range Interpretation [...] NOT APPLICABLE FOR DIALYSIS PATIENTS. Specimen markedly jgifujzJQXXWYKCEM7721-61-72 04:44:00* Test Item Value Reference Range Interpretation Comments PHOSPHORUS (BEAKER) (test code = 604) 4.4 mg/dL 2.3-4.7 MFIPOPRJD2364-28-07 04:44:00* Test Item Value Reference Range Interpretation Comments MAGNESIUM (BEAKER) (test code = 627) 2.1 mg/dL 1.6-2.6 CBC W/PLT COUNT & AUTO LGQAYPYQUYJR0492-43-05 04:40:00* Test Item Value Reference Range Interpretation [...] = 2801) 0 % 0-1 Vancomycin level, hqaapo5258-35-52 04:39:00* Test Item Value Reference Range Interpretation Comments Vancomycin Rm (test code = 31791-9) 16.4 ug/mL PHILLIP (test code = PHILLIP) Reference Range: No Normals [facility], NXFBPU5790-37-87 04:39:00* Test Item Value Reference Range Interpretation Comments VANCOMYCIN RANDOM (BEAKER) (test code = 523) 16.4 ug/mL Reference Range: No NormalsLACTATE DEHYDROGENASE (LDH)2018-12-25 13:28:00* Test Item Value Reference Range Interpretation Comments LACTATE DEHYDROGENASE (BEAKER) (test code = 635) 242 U/L 125-2 20 H Venous doppler legs srgvucrmf0864-00-13 12:50:27Ejection FractionSLEH ECHO HEARTLAB MKCKESSON CPACSRight Impression1. [...] 12/25/2018 12:50 PM CDTPV LAB - [facility] Extremities DVT Study Demographics Patient Name INDRA GALVAN ate of Study 12/24/2018 YAN CORDERO 8135 Age 38 Visit Number [id number] Ge nder Male Accession Number [id number] Date of 1980 Referring Audie Hoyt MD Room Number 7604 [facility] [employer]aki RVS Interpreting Karen Blackwell Physician ProcedureType of Stud y: Veins: Lower [...] in the common femoral, profundafemoral, femoral, popliteal, websphere administrator ior tibial or peroneal veins.2. There is [...] in cm/s ; Diameters are measured i kavitha [facility] W/PLT COUNT & AUTO UYGXCFHEWORH5005-96-42 04:43:00* Test Item Value Reference Range Interpretation [...] (test code = 2801) 0 % 0-1 AOGVYJHSUF3238-32-24 04:26:00* Test Item Value Reference Range Interpretation Comments PHOSPHORUS (BEAKER) (test code = 604) 4.7 mg/dL 2.3-4.7 TVHVSVOOT7427-24-25 04:26:00* Test Item Value Reference Range Interpretation Comments MAGNESIUM (BEAKER) (test code = 627) 2.3 mg/dL 1.6-2.6 HEPATIC FUNCTION MBRUB7300-72-17 04:26:00* Test Item Value Reference Range Interpretation [...] 12 U/L 6-55 Specimen markedly ictericBASIC METABOLIC [id number] 04:26:00* Test Item Value Reference Range Interpretation [...] APPLICABLE FOR DIALYSIS PATIENTS. Specimen markedly ictericPROTHROMBIN TIME/HEE4560-66-75 04:22:00* Test Item Value Reference Range Interpretation [...] patie nts wiht mechanical heart valves.BASIC METABOLIC KPROD2463-39-20 04:45:00* Test Item Value Reference Range Interpretation [...] NOT APPLICABLE FOR DIALYSIS PATIENTS. Specimen markedly ndgyhxgILIJNJAJDY4428-64-48 04:39:00* Test Item Value Reference Range Interpretation Comments PHOSPHORUS (BEAKER) (test code = 604) 2.4 mg/dL 2.3-4.7 AABBYJNEY7875-02-78 04:39:00* Test Item Value Reference Range Interpretation Comments MAGNESIUM (BEAKER) (test code = 627) 2.0 mg/dL 1.6-2.6 CBC W/PLT COUNT & AUTO LJYAJEFIWBBB1687-52-15 03:32:00* Test Item Value Reference Range Interpretation [...] code = 2801) 0 % 0-1 HEMODIALYSIS HGLWFDULT0524-63-67 23:25:30SFlakita granado RN 12/24/2018 12:23 AMVerified informed consent signed [...] Ag Latest Ref Range: Nonreactive Nonreactive [facility] (HEMOGRAM ONLY)2018-12-23 20:21:00* Test Item Value [...] /100 WBC 0 -0 HEPATITIS B SURFACE [id number] 05:28:00* Test Item Value Reference Range Interpretation Comments HEPATITIS B SURFACE ANTIGEN (2) (BEAKER) (test code = 2585) Nonreactive Nonreactive BASIC METABOLIC [id number] 05:28:00* Test Item Value Reference Range Interpretation [...] NOT APPLICABLE FOR DIALYSIS PATIENTS. Specimen markedly ydqyyghOBBQLHGWXM7750-34-56 05:23:00* Test Item Value Reference Range Interpretation Comments PHOSPHORUS (BEAKER) (test code = 604) 3.4 mg/dL 2.3-4.7 EYSYAQXZO3418-75-58 05:23:00* Test Item Value Reference Range Interpretation Comments MAGNESIUM (BEAKER) (test code = 627) 2.1 mg/dL 1.6-2.6 VANCOMYCIN LEVEL, [id number] 05:15:00* Test Item Value Reference Range Interpretation Comments VANCOMYCIN RANDOM (BEAKER) (test code = 523) 36.4 ug/mL Reference Range: No NormalsCBC W/PLT COUNT & AUTO [id number] 04:21:00* Test Item Value Reference Range Interpretation [...] % 0-1 CT, EXTREMITY, LOWER WITHOUT CONTRAST, [id number] 03:00:00FINAL REPORT CT right lower extremity. CLINICAL [...] t o represent laceration/contusion. Signed: Richie Griffin [facility] Verified Date/Time: 12/23/2018 03:00:15 lower extremity without [...] favored t o represent laceration/contusion. Signed: Richie Griffinjane Verified Date/Time: 12/23/2018 03:00:15 [facility] HospitalVancomycin level, pqspmm6862-77-73 17:08:00* Test Item Value Reference Range Interpretation Comments Vancomycin Tr (test code = 4092-3) 40.3 ug/mL 10-20 HH Lab Interpretation (test code = 40909-0) Abnormal [facility] HospitalVANPHELPS HEALTHYCIN LEVEL, [id number] 17:08:00* Test Item Value Reference Range Interpretation [...] 0 -0 RAD, CHEST, 1 VIEW, NON [id number] 08:35:00Reason for exam:->eval pulmonary congestionShould this be [...] Moura Verified Date/Time: 12/22/2018 08:35:05 Reading Location: [address] Neuro Reading Room Electronically signed by: OMERO MOURA M.D. on 2018 08:35 AM BASIC METABOLIC [id number] 05:18:00* Test Item Value Reference Range Interpretation [...] NOT APPLICABLE FOR DIALYSIS PATIENTS. Specimen markedly kyjuxhtGEXSQWOXI4545-02-91 05:08:00* Test Item Value Reference Range Interpretation Comments MAGNESIUM (BEAKER) (test code = 627) 2.2 mg/dL 1.6-2.6 Specimen slightly hemolyzed FJSIPZBECN4853-44-83 05:08:00* Test Item Value Reference Range Interpretation Comments PHOSPHORUS (BEAKER) (test code = 604) 3.9 mg/dL 2.3-4.7 Specimen slightly hemolyzed LACTIC ACID, [id number] 04:40:00* Test Item Value Reference Range Interpretation Comments LACTATE BLOOD VENOUS (2) (BEAKER) (test code = 2872) 1.7 mmol/L 0 .5-2.2 Specimen slightly hemolyzed Specimen markedly ypwxjfyBaoiyeccqj9336-85-55 04:18:00* Test Item Value Reference Range Interpretation Comments Fibrinogen (test code = 3255-7) 195 mg/dl 225-434 L Lab Interpretation (test code = 50507-5) Abnormal [facility] CenterWvqlkgEKFBCEZNOL5428-20-14 04:18:00* Test Item Value Reference Range Interpretation Comments FIBRINOGEN LEVEL (BEAKER) (test code = 658) 195 mg/dl 225-434 L CBC W/PLT COUNT & AUTO WGDBXQNZSFKV3530-80-50 04:10:00* Test Item Value Reference Range Interpretation [...] = 2801) 1 % 0-1 HEMOGLOBIN AND GCRBLNEZVN2656-58-41 08:38:00* Test Item Value Reference Range Interpretation Comments HEMOGLOBIN (BEAKER) (test code = 410) 7.0 GM/DL 13.7-17.5 L HEMATOCRIT (BEAKER) (test code = 411) 20.7 % 40.1-51.0 L POC-Lactic Acid, Gxtslr7114-31-61 04:05:00* Test Item Value Reference Range Interpretation Comments POC-Lactic Acid, Venous (test code = 2805) 1.6 mmol/L 0.9-1.7 TESTED AT [facility] [address] [facility] [address] Lab Interpretation (test code = 30366-3) Normal [facility] HospitalPOCT-LACTIC ACID, [id number] 04:05:00* Test Item Value Reference Range Interpretation Comments POC-LACTIC ACID, VENOUS (BEAKER) (test code = 2805) 1.6 mmol/L 0. 9-1.7 TESTED AT [facility] [address] [facility] [address] KZXUMRLJUOLXJ0531-13-21 03:40:00* Test Item Value Reference Range Interpretation Comments PROCALCITONIN (BEAKER) (test code = 3036) 1.26 ng/mL <0.05 H SEPSIS RISK (ng/mL)Low: 0.05-0.50Intermediate: 0.51-2.00High: > =2.27Modqfah1671-10-86 03:37:00* Test Item Value Reference Range Interpretation Comments Ammonia (test code = 53444-0) 65 18- 72 mol/L Lab Interpretation (test code = 09225-7) Normal [facility]2019-10-26 03:37:00* Test Item Value Reference Range Interpretation Comments AMMONIA (BEAKER) (test code = 348) 65 mol/L 18-72 PT/YYCQ2033-25-95 02:35:00* Test Item Value Reference Range Interpretation [...] patie nts wiht mechanical heart valves.COMPREHENSIVE METABOLIC XYIYN2548-89-10 02:26:00* Test Item Value Reference Range Interpretation [...] APPLICABLE FOR DIALYSIS PATIENTS. Specimen markedly ictericTROPONIN K1965-01-33 02:24:00* Test Item Value Reference Range Interpretation [...] acidosis, acute neurological disease, and per sistent tachyarrhythmia.CXWPVFUOV5941-64-32 02:21:00* Test Item Value Reference Range Interpretation Comments MAGNESIUM (BEAKER) (test code = 627) 2.1 mg/dL 1.6-2.6 Specimen slightly hemolyzed POCT-LACTIC ACID, [id number] 02:17:00* Test Item Value Reference Range Interpretation Comments POC-LACTIC ACID, VENOUS (BEAKER) (test code = 2805) 4.0 mmol/L 0. 9-1.7 H TESTED AT [facility] [address] [facility] [address] CBC W/PLT COUNT & AUTO WHGBWRSRPPIR0502-78-18 02:09:00* Test Item Value Reference Range Interpretation [...] % 0-1 RAD, CHEST, 1 VIEW, NON [id number] 01:50:00Reason for exam:->chest painShould this be performed [...] place. Impression: No acute abnormality. Signed: Katherine Reichort Verified Date/Time: 12/21/2018 01:50:02 , KNEE, COMPLETE (4 VIEWS), [id number] 01:49:00Reason for exam:->LACERATIONFINAL REPORT CLINICAL HISTORY: Trauma [...] Date/Time: 12/21/2018 01:49:02 knee complete 4 views abkds0020-80-43 01:49:00Interface, External Ris In - 12/21/2018 1:51 [...] Katherine Reich MDReport Verified Date/Time: 12/21/2018 01:49:02 [facility] 2018-12-21 01:10:14HaVíctor webster MD 12/24/2018 4:23 AMCritical CarePerformed by: Víctor [...] patient's condition and review of old charts. [facility]ANE[facility] DYNND7884-04-28 07:44:00* Test Item Value Reference Range Interpretation Comments SCAN RESULT (test code = 2811323) Manual Bexexuzvbauo5199-76-02 15:07:00* Test Item Value Reference Range Interpretation [...] Anisocytosis (test code = 961) 2+ moderate All Cells (test code = 474) 2+ moderate Poikilocytes (test code = 966) 1+ few Lab Interpretation (test code = 62264-6) Abnormal [facility] W/PLT COUNT & AUTO WAMOQGLUVMRG7508-55-55 15:07:00* Test Item Value Reference Range Interpretation [...] (BEAKER) (test code = 966) 1+ few CPPKGMBNMQ5149-61-06 14:49:00* Test Item Value Reference Range Interpretation Comments PHOSPHORUS (BEAKER) (test code = 604) 2.4 mg/dL 2.3-4.7 ANG, TUNNELED CATHETER OBEMCBNZG4288-99-48 10:01:00Reason for exam:->please place tunnelled hd cath for patient on dialysisReason for exam:->patient will need ffp ground operations crew member to procedure due to high inr on [...] the patient's medical record by the nurse. Activity Specialist: Regis Ortega MD. Caterpillar Driver: None. Approach: Right internal jugular vein Estimated [...] by blunt dissection. A 19 cm right [place] Duraflow 2 catheter was brought through the [...] MDReport Verified Date/Time: 11/15/2018 10:01:43 Reading Location: [facility] P04 8 Angio Body Reading Room Tunneled Catheter Oivwcgaqt6200-71-21 10:01:00Interface, External Ris In - 11/15/2018 10:03 [...] the patient's medical record by the nurse. [facility] Line Pilot: Regis Ortega MD. Caterpillar Driver: None. Approach: Right internal jugular vein Estimated [...] by blunt dissection. A 19 cm right [place] Duraflow 2 catheter was brought through the [...] MDReport Verified Date/Time: 11/15/2018 10:01:43 Reading Location: [place] [address] Angio Body Reading Room [facility] HospitalHEPATIC FUNCTION PANEL 2018-11-15 07:46:00* Test Item [...] 46 U/L 6-55 Specimen markedly ictericBASIC METABOLIC [id number] 07:46:00* Test Item Value Reference Range Interpretation [...] Specimen markedly ictericCBC W/PLT COUNT & AUTO OBMGXXANFDDV0213-18-28 06:23:00 * Test Item Value Reference Range [...] = 2801) 2 % 0-1 H PROTHROMBIN TIME/[id number] 06:20:00* Test Item Value Reference Range Interpretation [...] for patie nts wiht mechanical heart valves.BLOOD IYATRQN4877-05-65 02:01:00* Test Item Value Reference Range Interpretation Comments CULTURE (BEAKER) (test code = 1095) No growth in 5 days BLOOD WMLETRR8906-07-43 02:01:00* Test Item Value Reference Range Interpretation Comments CULTURE (BEAKER) (test code = 1095) No growth in 5 days HEPATIC FUNCTION [id number] 08:23:00* Test Item Value Reference Range Interpretation [...] U/L 6-55 H Specimen markedly ictericBASIC METABOLIC PDKRA4116-07-09 08:15:00* Test Item Value Reference Range Interpretation [...] APPLICABLE FOR DIALYSIS PATIENTS. Specimen markedly ictericPROTHROMBIN TIME/LVT6371-08-59 05:54:00* Test Item Value Reference Range Interpretation [...] mechanical heart valves.CBC W/PLT COUNT & AUTO CCZWYUBQJNPT3408-47-97 05:45:00* Test Item Value Reference Range Interpretation [...] = 2801) 2 % 0-1 H Tissue Kdyf1070-71-60 14:34:00* Test Item Value Reference Range Interpretation Comments Case Report (test code = 104) Surgical Pathology Repor t Case: [id number] Authorizing Provider: Devyn Lantiuga MD Collected: 11/10/2018 1325 Ordering Location: [address] Received: 11/11/2018 0818 Service Pathologist: Be Arenas MD Specimens: A) - Polyp, Colon - Sigmoid, sigmoid polyp bx B) - Cecum, cecum ulcer bx ADDENDUM (test code = 3381) t0pqbMQkINUkhPSoOtWxILTqDZGbg0fsNCIdqQHaPvFfGjKvAyGmQropvKVcSBIlAgXle2fjk954pANv e2znNSBsNiC6bHHsCPHzwFRxL094u0jbh5sxgdFomYR8FJWhQBS5CTmmitKznfE9HIhvxQCkXrS9WHos zjQeOGcauvYxmdVzLch3NJWaQ613YNZ3aHiwd4bpKA T1VBEkSSDlDmQoYs0qyKCgD850BEDeRAXFGATjcDa9MFUwmvVsnbNvhEYHe480O234v0qeLTNzghVbvX iSxsoem4ayJ922GQUhoWDbydJuEeRkMWUumFNreOO6SNGhDA9klxcjWVbxCJpfXCWrtpQ0MCQdoIQeQ1 JvJJIqYR8tdejaOGT9DImpWUIrOMV8UlJqXSZlq2Be qmm9FhUhws4ixs58INJ3h6CogSgpBDJ3OQI5HeHtMg6ltVGdMDKeXG7mFvFdnRDhGTMgmw71uXbpAWdw hwLkgU1pPbEfKKQcwAVdCEJhZF9ijBRfKJKbdD9qnczzVAXfRtCnxfeuZRAwfGguwzKaNq9qoNnxHOK9 UYohF2jncV5qPfP7XAmuP6cjtL8tUIa1AKkfaVR5EK BfuL3hPS6yvybzy4kfCLptPXfkMKPjdlQ6nyU1UKNwyFGgO4YpmY4mLWDyAB2psbbba1jqZZL3COmmMT VlDFI0ShPuIUCwu0Bguri5BuBqm4EyqGEqXMiwU31xo164PFLrahXeL2flkREiednxrHBlcmwkJYqirl G5SFBoBHGpUTbpVAUhLMNtNgWfoLByUdZoWiEjlHny bReaLResTtRnBSFaOHtjY2xfRbEhNdTpPDZNnX81sw6weGUlatYjUn2cOFdDXtQjGXpEOjDlMXTnLKBW NFYujFDnYg2dkCMiOJ8tSBGxi2WzPQVzFWOlAKIpAFytnPo7WM1rpWIfdM== DIAGNOSIS (test code = 3220) f9bnnAKeBYTyh5jsFRZnuHXvDrWvFzSkUuZfUnqbqUElAOuhbtFwFSatc3NhL2PcAcEyNJimwdKaEPWg HpymvsxnUEPfQCU7zqBaWEQuXDcvAOGqKWxmLj1yvWShgZdoLbNhXSLym3iwtmNLqhnrmNo6n2oePRSg OaT1uDNnOUtoF7zdklHgjBBwLBLrUXp9sC58LOGpqU 9jjYNwWUiqwuVoVaR8BEwbDKOrBpK9JMBijGAtYMJhS6ebHOHrRYqmFGYnKGmvhPCfCHR5pRdhk2U0eS DphHOngTjwEjThTvZrFOIAs4WqMZz0fTtyJ1ByLFIrSxB2qMXlFYZhNVzzFGMvBYCbmxY7dE61LUxumv W4gIZsi6Cpm30ye602bC4gbOGkULW9LLDwGCXkpKZg UXOeBBT6QPEeoCBaR8b5QhTbyQKuD4W3FzJvwVWhC9P3OvQlxEGxK9N3AsNopNOyBUYzkXCbOc0rkXBq aZApyi1qim33ZRI2l3TivWnfVZO5SAU9FoSkOb3snZXtISOoGF9qApAdoWXvKLBinu69iHrjTXlkqwTr sI0kEfJzQNXrqLZoQONdKR5lmNXsBJIqoR3dhhggXS IfDcHkqshkSIZjwBkcztDsRf2jmQhdFTO5YGoxU9wxqA0dHfO9ROfwE0zggS3sIPo0ICihjXE3LRFaoA 1nMV4xkkpkq0apFgIoOO6zsyifp2cfWvOzJX3exbu1o8uwHuNoMF0pruqqz4khKuLqNRnrDQJpkqelNU Rhb2QyjrnnVBMew9PuZ0SyaIwfB07caYbcD44sOBNd jQzndE4ulFqooO0sCnJzUkVlZAxiuSiswJRfutlxKNegskDmZYquwtepFJYiMKidE1myIdEeVTGjpFfx VJprw2LtFRIqXWYiYbIhIOTCFTUPGUDQQ52XQAXtX71QY91jPN0WPXRsGWJWCDxRQBZMU44XWuqmPHMp SFlQRVJQTEFTVElDIFBPTFlQLlxwYXJccGFyIFBBUl BfWoUOVAIFQKMAVX4ZG6ocAd2QFLEBZ8XZT0QKOMAHAEKWAvfhbXHkHR6GZdRLLTWLZlcNKIQBZZuXAU VEA6jMEQhAMJgNLQfpQQuQKTWMOIoIJeWFIzOyVwWGIJ1KPcVXHINPEJSRGSPXNjQQFxegHRVoUkUWLC LBQgInVn9VCNzMOC8LYU6VLIZbOVPEM9VRJIGELLum A0XiQA2LGRLDQxKoX6VGR7dBY60HKafkIGAzCb1nIT7QSYtNGZ0TERHrB6FzEO9FOT2HOTuDPq2WWSAO GqTAZcyWKN2NVIWMJiPHPU4RRI8YIT6wtFYzELHWLNPDHPGUWh6UMNaMHUFAGE1BExFtAZPgznHKVD0J Pj5KTEIWXdOyHi4TGTIZRhDRLW5ZOihYPdEuXBKJFV fDUupgHPGLVE8KSX3bIX4lQv0YGW4RMeamSXMvaTCkyQbbzgPdOCgfg3OfYYgaXZCaLD4jqIbyWUEwHA 8nYOYiN6nkeB5drlr4IcUfGOQgYyK1IJAjjnF1Oai2NYPdCVsph6npp6WmLZXgXOm4jMtpRwRrKGPid0 ngqeIfVxVxZAQwJBPhKZOteNInZ156x6jmv5joctUs bIT7THMuDAE5BPwlubJylhA3ZTenfCWsTeI2NNwycxSyLCcxzvMfktIqAvd8EOZzW864SHZ5hXjvu2vm GUC3GALoCZAgFxZyXd8sdFWtK430VZWnDAQNERWfxPx5WJHwipKlnhSjdUTZa138I615a3ujRBBbbfCp lAzXxiile6jgH287AFYnqAQzmrSfRqCvEFQugBYetQ D3EIHvHV0eguroNXihCYfxWTPmluB0FRGkkPOzQ6TxEKMdIM6kgogoYWB5AZtfRVBpJQT5KjIqCVEjk6 Azidm2PfWodo1ixc79HTU0z6MocWcaEJE0NSV1PiWkFi7dwAVwXORoFF4uSqLtjFZaZGKjhq60fYcvMV hbMQD1AJErdhNvu7Lub3kxGfPxmlPcO6zwA3IyOHOm DTOvNQPiLcWcjsOas4Div8CacXNckNi5i6fuIOPiGCHomVmlt1znKQW6FZMgyKDxS4enlB3bFHOcDW9w htaoh2pyIQlxRDixUBYstPE5rjW5LEPsnWEyC3CttT1pYOGtUAkuJAYrfsl2AcImRa4erNVzpLnqFYdm YmtwYWdlXHBnbmNvbnRccGduZGVjXHBsYWluXHBsYW lfLRKxLBSgYcFuyOxasXKkLbQwAoWqwXotzIsnPLnoLcUnDMGdPKvhI7xvAsRrQfYjHhq0NJIfyYZeKG GyJwm2ERRmzPZuOZTMsHygyB8xGOXabNxcoP0udZC1RMQmhvWktRCVtB7cVCLLqA9yXsY8UrBmVrE9KU QyNDlccGFyfX0= COMMENT (test code = [id number]) a1upbKQjSAIvkNNiOkEbNVYqQKMrk5yhZIUbyPUtLjYgEjLmGpPjHiyhnPXsNDNeAaKmw8epw684aZXl r1pvDQPaGxW8lSKoDNLshALgU768b7gss1okldDtdZG0UKKqHGP0EXyokaOyazO4POocsDTrPqC4DXap oeMgEDmrqvDxwdEuOcl3MSMeH596BOU7lEwpa4bePS Q8QKUoBPBwYpTaVw4hwINeJ112JOQxRKXNMEGczFx9JOYwjvKkqcGbkXWCt395Z773a7vyXYTssyCltE vTgzpgo4xlE558KTXqfVUjkqOhGlBeRQDgdNQwsRI7VHVdVM4cothrXoIzUM7iqbliIoTuDZ1bulk2Ph HhTA5oztxwHdArEAjoQQOawvqcVSCex4QpljfcJT2m U8Gvt2K8mN2pwUYtFGImeJMaPjYuEAPbkx6rtRWqHCcpt0XeLRT3oxT0lCGriJIrQXNhPV41Dpftf6Xo KlpnQYZ4JBKckvIea2Quh1egTkOgaaHyE5rgD0YeUKZvGLXrDVLgRfFdtlIka6Oap1LvsTEocSy6b2gn ZAYbSAQjoOsms4mpHWO3EYEhC9O9qTXcn5xqHEakSH KapDX5kfzjYZucHLFtibC1jixjKRbzHTFxjEN9viovYGepOMGpTjQ2hfcdKWvrVKUuTDX9EQerj189JK K2VVfsTdnyUIpvWJElieAzspOvrLkmBBMiNYQeFZhqAOWbQJssKWRyCSJiOcOarRuodJbreH4lOxBcOo JzHQoxZP1cBJTuR2xamLWlLYNwLSMtR8zeQgSgyY6d mJmtFZqqvsChVMTOJpSzFcftLD2glO1urBkgrR4ucPPtjYPwsEUnqLAscIFsWVSxilArwl3qYQZbhwNi pV2kvdVZHOFtFB1owlL2lcV9QQM6kBEpvPcpwMvokJTkoU3bvQtnxYummjR3hnFqRVOhw2AbwCm3HJGp h6VfY9GuRHOpj8PgcMu6RMJHNJOzbGziZHLiXOCXRN SfB7C3TOVsy0y6nDCnNYTlP0MisNOvFOWbVRTyPUufNT4hWFGiJZAqSQ47SBOiQQE8sTXns3Nym59rn9 SiU7ChIFKpvoJdC2E2QcMKvYYqbZ8uZHXqxBEmptSdOCKjiuRfXWNtYRXfGEszBC8dCR9ridRtr4wtI7 vcRM9tDLiuuAHti2YsLH1nqPajcAYmIFWhNCDpG7Smf9YlmRldcPufrLDaNATllz3= CPT Code(s) (test code = 3357) o5zrtKZgTWKbzBTpHiEvIYEcMDGev6gcVLQikOWlFoIrFnXiAyDwDmjefZYjLFPrWmYjq7upy698uFIo j6wnBEYnDjO0qHNgPVTvoGSwD358z6wyq1lbikAeaJH0BNNlLNW4ROwmqaTiquG4HYpynMCfDsT0TThc mqBpEYitaqIlwcXoLck3SZHiJ498CKT9kHlcj8zwKN D0QJOrFRUjNeZuWo7arIKyQ102PWJjKMASDKBmmWz8WUXjalWnkeWlnPKYr365Y966f9xpFZLyseOmbD nGfwiar3apQ812YHUeoLMhwjNhZhDiVLDjeELmmPT3PTOfQE9beftyUkKnES7mjrrbLfYmSA0bzpm3Ky UeAD7saaqaQiIjLTlzROUymwwiFTEjo4VfbxstGS1q A2Nny4S2zQ7wzSEdQAGsdAJvBvRzWISokg1daBNvZEixq6YsRBS8qaI7eFToeIQwVGRqKJ39Nqzas0Xa WrtxATA5AGGiodBdb7Gsy6ucNfRkecCgF2opR9WzKCPdETYjVROgRtBwquNpw5Ytg7MeuHRivPw6i0en ZPXeCFJvxHpri9ocUHA2JMKvE4Z6rJBbe6gvXUltYT BetTI0exddPPhuLFGnymJ0bbvyIDlfYATvsJC7hhbiAFexTLKpSnQ5qkicWVrgQDNxGJI4CShvk770JE O7VOgoBxnwAPlwDRYebuVereXiwJqxSWXjIIZvRCrbHPLgBUooEWZaWGVyWvAzjHgrdThpnX5pEwFaZd YjSOvpAF0kTDIrC7fgnSMkPXNoJLBfG3svCaAslS4k jCybHAopvyOgVTd8ZlM9lCSeDWw0DmYgYEM6PNC6KVi7LHAncg3= CLINICAL HISTORY (test code = 3356) w3zefBOqQIXjgMNeNaFuZMXsFMDzd3weFUBxoNYwNvBuCcLcQePlDidxeEGmUTOgIrRhc4zxa308oVWa f0mfIBXoYsP1uFBsXUHbxMVxZ335w9ujf3yjwlGvuDV2SNOaDNC0IDofyeVrbeI3IQgakZAwQxR9OHrt hiDvVBbtgsRfmpJhDil7NJSjU153JKF1tHtnf5peHI O6NCBhYRPhPjWsBv2jtAZkT442WKVvJQBIJSIouVf6VWGhpmKaedXukPRKo395Z236j0iqTFBdzoZysG aCwwtkh9hgX217PNGqaGSleqVrIrRzALZgtVNerRU8GTAhGJ0okhjgPpYyJM2unxvxRqIuKZ9wofq7Av YnYY0qseudFmYnYVmuBHYtvfujBAXlj4YyjcxsAJ4a L6Fxy1F9vD3nhROgWUGprWIyCdLpOBOvfh2xnNAoMFbrb9MfRXM0txG4jXYlyJSfGKVgGP09Hodwg1Qy GvxoOCZ6NLIyfyYss4Ewh0daPqOusxNbZ6wfI3LkHJFrHTQiVYHiVmPbjaIth3Agx8EijCNgnXl4z0ey TTGdBIWkjZxqg0hfSOF2DYFhZ4Q0nSOdt0qoMQnyDG XbxCP0wmokHClaSEDtylG0xucdTLegYIAvyBW4gtwqVZckSGTcOiL5psmwEGmqYXWeCYK5IQtgk885XM E4OWkuFxxhQPjuRELrdhIcirEnyOliUGSfLLJfIPjdQVZkTDuqUVXtHWGhTyVmeAvufCtqaK9wHtNoEt WbBPdvWC4iVBByD5riuHMsAECeNIGxV6hkXiKecS 6dzWrdMBenovYqTOIrgJ9aYTYidEnxkzChgHJvlO== SPECIMEN SOURCE (test code = 3377) e6ncmCLpWBJniBWdVdFcWLRjSZZlg0yfQMMxqTJeBaZaJnOyIiTyMrxfiKGqIYZtXrKnx8yis219aYRz g6lgCAXmJaO4gDVtMAPkgEVmZ267f8wrh7byapGwgBH0YGKkDHK8OQbiodYrmoN7EEbseEFhKoL9XFuh blLrHObdkwYesgPaQdj8DISzW419SZA9oVmyt9swAM N7ROBcYFNpDhEdKh1ciEJaC827WNAmBZUJZULmeBp5FNVbzmGrokTiiOWBm282T827c2vnDRChsxIxzP bMlsupz4ptE398QPVmfDUegjDfPkUaCUHmfBGlaPH1SNMcUI2ckcvzYuUzHM7relrdTdBdWD6kokm4Pv ZpOI2eecueEtJaJXhqPTCwdkbnSIZvk6KjpgcoHU0z A1Eaj0H1oL0zzBHlYKMpsRQjToYbZXVfqm9zlALaSNqyj5YcWQE1kdJ5wONauSJxSYPjXJ64Pfwps4Rq NighPCL1CXCizoUmy2Ybo4npCmEdwrEyV4boI7SaSUXbNUSfBINwEbHekkFez6Ogq6OdfXQlsRf6u9rg YIIeHJUufPwej2qzRXJ9OVJtK9Z2gWIzn6riDPejBW GnkNW8favbFOinHWUwuvK7cpxeQNibNMOuaYL6caqjHXslDZPaWuX7dmunIIpfQLYaNJM5LVlwq537LC E9COmtJtazEHxtEPYykxOmipVdgVvqGQYeVWUgRIdtJSPrXXgcTATqBZEgVhGkpNeskOtsrU8zZzKuSy OfMRubKG3oZZVtY0ctpMMxETTuWAOuV0sjZxIioN6q tUgkGUlejoNmJFWbRQBfH37wvUGatF4jtWPcQvqdsMA5IgGUQlQCQCY7wGR4uLJmeiUnuC6lo7ytRYPu cn0= GROSS DESCRIPTION (test code = 3366) [file] tHPngSU2NCYajQ7ynP35mlJersRNOO5xG6inABfpVYOwct5= MICROSCOPIC DESCRIPTION (test code = 3371) d6kykRCpTQOvyXPvIsVqFPZiFTZag5daPTFxxDHcClDiVpBzKdVcSwsflOScPDMzXwPwz3lqg523tLZg j1qxCWZpSyA0nGZzNSFgoZTxE029g5xbi7nsahUpaEL6CSCcEWV2XJfwzeIdaxH3TCgusGUeZrX5ZAab kdSlVFokqgIxciCpHks7KHClW880WRZ6fDnpk9glBH D5RQEzUHKfYbQvSh8exVVcJ407TWCqMKTYPHOoeSk6NHKvqkGduuTvdNHOi401O384p9uqKEKygvOvwU iNlbzrq3miH343AUPogUUifpBzGuBbFWTsmEZuzNK1EEJxUH0bxxfiEaVnBR0zcuufMeKaBZ0xgjt1Ti SoQQ4sbmgzQsHlQAmkPJPyxlfbKNQbw3PuyvhrEQ7g V8Ssw1E4sR7rnHJiNQXhmLUyHfNqWCOaou0ncZZhSQlap6PbFSO5usJ4eMSpbLEqIBAqJP65Hljic3Jp WicaBFI9HVKkhdXbq7Wvl9brXlBtnxCuY0daF9NqXWIzZQLcOGJeYgZzhnWoq4Rqk5OwtURrhFo7x8vx CMKuFNZprDxtc7jvUGG2IPTkJ1L1dMUum0oqWYfgOO EjpLW2txebHQxmZQOdnzU9pssaMTuvAZSlwZV1qaseSCxdTSHtPjD4uxluCGtcRGAzQJC8WSdnw861WX B1CBffMijfERsqZGMnzfAmjsWisLghJVKxWAAgAGkbFPAyWSbaWNWeCYOwXnRjrJybsThonJ3aBtEsHf VoYAylSW0eITVzS6xqePZfDAOiGFUaH4vpYpIaaK1aqBwsIHzixdObIOOuzmJqrp7nDZ1hAMQcdh5= SPECIAL STUDIES (test code = 3376) [file] GwcDzzzY2fEpGcRpRgCIcfNMR1 [facility] HospitalTISSUE [id number] 14:34:00Surgical Pathology Report Case: [id number] Authorizing Provider: Devyn Lantigua MD Collected: 11/10/2018 1325 Ordering Location: [address] Received: 11/11/2018 0818 Service Pathologist: Be [...] CARCINOMA.NO MORPHOLOGIC OR IMMUNOPHENOTYPIC EVIDENCE OF LYMP [place]D.SEE DIAGNOSTIC COMMENT.IMMUNOSTAINS FOR VIRAL MARKERS PENDING, ADDENDUM TO FOLLOW. Signing Pathologist Direct Phone Line: [phone] s igned by Be Arenas MD on [...] is no morphologic or immunophenotypic evidence of lymphoma.[id number], 71154, 8834 2t8Pckbb polyps A. Sigmoid polyp biopsy. B. Cecum [...] HSV1, HSV2, CMV, CD20, CD3, CD5, CYCLIN K7Mqplpdf Slides Examined: In-house known positive controls were evaluated along with the test tissue. These control slides run a longside of the patients sample show appropriate staining. Internal positive and negative controls when available are evaluated Immunohistochemistry technical t esting was performed at [facility] Pathology Laboratory w here it was developed [...] to perform high complexity clinical lab oratory testing.[id number] 08:34:00* Test Item Value Reference Range Interpretation Comments PHOSPHORUS (BEAKER) (test code = 604) 2.3 mg/dL 2.3-4.7 HEMOGLOBIN AND [id number] 08:03:00* Test Item Value Reference Range Interpretation Comments HEMOGLOBIN (BEAKER) (test code = 410) 6.4 GM/DL 13.7-17.5 L HEMATOCRIT (BEAKER) (test code = 411) 19.1 % 40.1-51.0 L BASIC METABOLIC [id number] 06:42:00* Test Item Value Reference Range Interpretation [...] FOR DIALYSIS PATIENTS. Specimen markedly ictericHEPATIC FUNCTION [id number] 06:41:00* Test Item Value Reference Range Interpretation [...] Specimen markedly ictericCBC W/PLT COUNT & AUTO [id number] 06:36:00 * Test Item Value Reference Range [...] code = 2801) 1 % 0-1 PROTHROMBIN TIME/[id number] 06:29:00* Test Item Value Reference Range Interpretation [...] nts wiht mechanical heart valves.RAD, CHEST, 2 [id number] 23:58:00Reason for exam:->coughFINAL REPORT Chest, two views. MEDICAL HISTORY: Cough. COMPARISON STUDY: November 05, 2018. FINDINGS: The cardiac silhouette is unremarkable. There are bilateral mild increased interstitial markings. A right-sided central line is noted. There is no pleural effusion or pneumothorax. Degenerative changes are seen. IMPRESSION: Mild interstitial pulmonary markings. This may represent mild volume overload. Signed: Andrew Sloan Verified Date/Time: 11/12/2018 23:58:30 Reading Location: [address] Consult Reading Room chest 2 [id number] 23:58:00Interface, External Ris In - 11/13/2018 12:00 [...] represent mild volume overload. Signed: Andrew Sloan Verified Date/Time: 11/12/2018 23:58:30 Readi ng Location: [facility] C013 Consult Reading Room [facility] [id number] 04:58:00* Test Item Value Reference Range Interpretation [...] U/L 6-55 H Specimen markedly ictericBASIC METABOLIC [id number] 04:50:00* Test Item Value Reference Range Interpretation [...] Specimen markedly ictericCBC W/PLT COUNT & AUTO [id number] 04:33:00 * Test Item Value Reference Range [...] code = 2801) 1 % 0-1 PROTHROMBIN TIME/[id number] 04:25:00* Test Item Value Reference Range Interpretation [...] patie nts wiht mechanical heart valves.Creatinine, random [id number] 03:53:00* Test Item Value Reference Range Interpretation Comments Creatinine, Ur (test code = 2161-8) 225.8 mg/dL PHILLIP (test code = PHILLIP) Reference Range: No Normals [facility] HospitalCREATININE, RANDOM [id number] 03:53:00* Test Item Value Reference Range Interpretation Comments CREATININE URINE (BEAKER) (test code = 375) 225.8 mg/dL Reference Range: No NormalsProtein, random [id number] 03:50:00* Test Item Value Reference Range Interpretation Comments Protein, Urine (test code = 2888-6) 122 mg/dL 0-14 H Lab Interpretation (test code = 34175-5) Abnormal [facility] HospitalPROTEIN, RANDOM [id number] 03:50:00* Test Item Value Reference Range Interpretation Comments PROTEIN, URINE (BEAKER) (test code = 1569) 122 mg/dL 0-14 H CBC W/PLT COUNT & AUTO [id number] 08:10:00* Test Item Value Reference Range Interpretation [...] U/L 6-55 H Specimen markedly ictericBASIC METABOLIC [id number] 06:17:00* Test Item Value Reference Range Interpretation [...] APPLICABLE FOR DIALYSIS PATIENTS. Specimen markedly ictericPROTHROMBIN TIME/[id number] 05:07:00* Test Item Value Reference Range Interpretation [...] patie nts wiht mechanical heart valves.HEPATIC FUNCTION [id number] 06:03:00* Test Item Value Reference Range Interpretation [...] U/L 6-55 H Specimen markedly ictericBASIC METABOLIC [id number] 05:52:00* Test Item Value Reference Range Interpretation [...] Specimen markedly ictericCBC W/PLT COUNT & AUTO [id number] 05:17:00 * Test Item Value Reference Range [...] code = 2801) 1 % 0-1 PROTHROMBIN TIME/[id number] 05:07:00* Test Item Value Reference Range Interpretation [...] for patie nts wiht mechanical heart valves.BLOOD [id number] 02:01:00* Test Item Value Reference Range Interpretation Comments CULTURE (BEAKER) (test code = 1095) No growth in 5 days BLOOD [id number] 02:01:00* Test Item Value Reference Range Interpretation Comments CULTURE (BEAKER) (test code = 1095) No growth in 5 days URINALYSIS W/ REFLEX URINE [id number] 00:30:00* Test Item Value Reference Range Interpretation [...] /LPF SOURCE(BEAKER) (test code = 2795) HEMODIALYSIS [id number] 15:25:00Melissa Lo RN 11/09/2018 4:53 PMProcedure fairly [...] 98.3 F (36.8 C) SpO2: 95% [facility] 2018-11-09 11:29:00* Test Item Value Reference Range Interpretation Comments PHOSPHORUS (BEAKER) (test code = 604) 2.3 mg/dL 2.3-4.7 HEPATIC FUNCTION [id number] 04:57:00* Test Item Value Reference Range Interpretation [...] Specimen markedly ictericCBC W/PLT COUNT & AUTO [id number] 04:42:00 * Test Item Value Reference Range [...] 2801) 2 % 0-1 H BASIC METABOLIC [id number] 04:41:00* Test Item Value Reference Range Interpretation [...] APPLICABLE FOR DIALYSIS PATIENTS. Specimen markedly ictericPROTHROMBIN TIME/[id number] 04:34:00* Test Item Value Reference Range Interpretation [...] patie nts wiht mechanical heart valves.HEPATIC FUNCTION [id number] 17:22:00* Test Item Value Reference Range Interpretation [...] U/L 6-55 H Specimen markedly icteric; notified #[id number] of correctionCandida antigen with reflex to [id number] 11:29:00* Test Item Value Reference Range Interpretation Comments Yari Antigen (test code = 17263-3) Positive [facility] HospitalCANDIDA ANTIGEN [id number] 11:29:00* Test Item Value Reference Range Interpretation Comments Yari Antigen Titer (test code = 9501-8) 1:2 [facility] HospitalCANDIDA ANTIGEN WITH REFLEX TO [id number] 11:29:00* Test Item Value Reference Range Interpretation Comments YARI ANTIGEN (BEAKER) (test code = 1782) Positive YARI ANTIGEN [id number] 11:29:00* Test Item Value Reference Range Interpretation Comments YARI ANTIGEN TITER (BEAKER) (test code = 737) :2 CT, CHEST, WITH HIGH RESOLUTION, INTERSTITAL LUNG [id number] 11:29:00 Reason for exam:->liver transplant evaluationFINAL REPORT [...] splenomegaly. Small amount of ascites Signed: Gela Dawson MDReport Verified Date/Time: 11/08/2018 11:29:31 Reading Location: [facility] C0X [facility] Consult Reading Room chest with high resolution/[id number] 11:29:00 Interface, External Ris In - 11/08/2018 11:31 AM CDTFINAL REPORT PATIENT ID: [id number] of the chest, without contrast Clinical [...] splenomegaly. Small amount of ascites Signed: Gela Rodriguez MDReport Verified Da te/Time: 11/08/2018 11:29:31 Reading Location: [facility] C0X Ortho Consult Readi Room [facility] HospitalMR, ABDOMEN, [id number] 08:24:00FINAL REPORT MRI of the abdomen. CLINICAL [...] abdominal lymph nodes, likely reactive. Signed: Andrew Sloan MDRepo rt Verified Date/Time: 11/08/2018 08:24:53 Reading Location: [facility][1] Reading Room - [place] [address] E [id number] 07:36:00* Test Item Value Reference Range Interpretation Comments CULTURE (BEAKER) (test code = 1095) No growth BASIC METABOLIC [id number] 06:13:00* Test Item Value Reference Range Interpretation [...] NOT APPLICABLE FOR DIALYSIS PATIENTS. Specimen markedly chvorptXKDZDNCEJI4524-77-31 06:07:00* Test Item Value Reference Range Interpretation Comments PHOSPHORUS (BEAKER) (test code = 604) 2.8 mg/dL 2.3-4.7 [id number] 06:07:00* Test Item Value Reference Range Interpretation Comments MAGNESIUM (BEAKER) (test code = 627) 2.2 mg/dL 1.6-2.6 PROTHROMBIN TIME/[id number] 05:21:00* Test Item Value Reference Range Interpretation [...] mechanical heart valves.CBC W/PLT COUNT & AUTO [id number] 05:03:00* Test Item Value Reference Range Interpretation [...] % 0-1 CBC W/PLT COUNT & AUTO [id number] 13:51:00* Test Item Value Reference Range Interpretation [...] WIT TOXIC GRANU LATIONS PRESENT BASIC METABOLIC [id number] 07:53:00* Test Item Value Reference Range Interpretation [...] FOR DIALYSIS PATIENTS. Specimen markedly ictericHEPATIC FUNCTION [id number] 07:53:00* Test Item Value Reference Range Interpretation [...] 80 U/L 6-55 H Specimen markedly ictericPROTHROMBIN TIME/[id number] 07:12:00* Test Item Value Reference Range Interpretation [...] mechanical heart valves.CBC W/PLT COUNT & AUTO [id number] 08:15:00* Test Item Value Reference Range Interpretation [...] U/L 6-55 H Specimen markedly ictericBASIC METABOLIC [id number] 04:58:00* Test Item Value Reference Range Interpretation [...] APPLICABLE FOR DIALYSIS PATIENTS. Specimen markedly ictericPROTHROMBIN TIME/[id number] 04:37:00* Test Item Value Reference Range Interpretation [...] for patie nts wiht mechanical heart valves.Urinalysis w/Pnioaykgrnk2254-78-72 22:58:00* Test Item Value Reference Range Interpretation Comments Color, UA (test code = 5778-6) Dark Yellow Clarity, UA (test code = 5767-9) Clear Specific [place], UA (test code = 5811-5) 1.012 1.001-1.035 pH, UA (test code = 5803-2) 6.0 5.0-8.0 Protein, UA (test code = 49722-3) 20 mg/dL Negative A Glucose, UA (test code = 365) Negative Negative Ketones, UA (test code = 2514-8) Negative Negative Bilirubin, UA (test code = 75065-0) Positive Negative A Blood, UA (test code = 05970-3) Negative Negative Nitrite, UA (test code = 5802-4) Negative Negative Leukocytes, UA (test code = 5799-2) Negative Negative Urobilinogen, UA (test code = 80322-4) 3.0 mg/dL 0.2-1 H RBC, UA (test code = 69668-6) 0 /HPF WBC, UA (test code = 5821-4) 1 /HPF Bacteria, UA (test code = 24498-8) Occasional Mucus (test code = 8247-9) Rare Specimen Source (test code = 2795) Urine, Clean Catch Lab Interpretation (test code = 66902-0) [facility] [id number] 22:58:00* Test Item Value Reference Range Interpretation [...] 2795) Urine, Clean Catch Hepatitis B surface [id number] 20:23:00* Test Item Value Reference Range Interpretation Comments Hep B S Ab (test code = 06227-8) <8.0 <8.0 mIU/mL Lab Interpretation (test code = 33632-8) Normal [facility] HospitalHEPATITIS B SURFACE [id number] 20:23:00* Test Item Value Reference Range Interpretation Comments HEPATITIS B SURFACE ANTIBODY (BEAKER) (test code = 647) < mIU/mL <8.0 Hepatitis B core antibody, [id number] 20:22:00* Test Item Value Reference Range Interpretation Comments Hep B Core Total Ab (test code = 56610-4) Nonreactive Nonreactive Lab Interpretation (test code = 67280-9) Normal [facility] HospitalHEPAT[facility]IS [facility] SURFACE [id number] 20:22:00* Test Item Value Reference Range Interpretation Comments HEPATITIS B SURFACE ANTIGEN (2) (BEAKER) (test code = 2585) Nonreactive Nonreactive HEPATITIS B CORE ANTIBODY, [id number] 20:22:00* Test Item Value Reference Range Interpretation Comments HEPATITIS B CORE TOTAL ANTIBODY (BEAKER) (test code = 497) N onreactive Nonreactive RAD, CHEST, 1 VIEW, NON [id number] 20:17:00Reason for exam:->pleuritic chest painShould this be [...] Pulmonary interstitial edema. No pneumothorax. Signed: Nicolás Ceballoseport Verified Date/Time: 11/05/2018 20:17:29 , NON-TUNNELED DIALYSIS CATH, [id number] 19:49:00Reason for exam:->need dialysisFINAL REPORT PROCEDURE: Non-tunneled dialysis catheter placement Procedural PersonnelAttending physician(s): Queenie Sorenson physician(s): Remedios Avila physician(s): Chetan Patel practice provider(s): None Pre-procedure [...] site was prepared and draped using all [place] ents of maximal sterile barrier technique including [...] sonographically evaluated and determined to be patent. Gretel l time ultrasound was used to visualize [...] was applied.Catheter placed: Schon XLCathete r size ([place]): 14Catheter length (cm): 15Catheter flush: Heparin (1000 [...] agree with the report as written. Signed: Srinivasan Chiang MDReport Verified Date/Fernando e: 11/05/2018 19:49:40 Reading Location: [place] [address] Angio Body Reading Room non- tunneled dialysis catheter [id number] 19:49:00Interface, External Ris In - 11/05/2018 7:51 PM CDTFINAL REPORT PROCEDURE: Non- tunneled dialysis catheter placement Procedural PersonnelAttending physician(s): Queenie Sorenson physician(s): Remedios Avila physician(s): Chetan Patel practice provider(s): None Pre-procedure [...] time-out was performed prior to the procedure.Preparation ([place] PS): The site was prepared and draped [...] ressing was applied.Catheter placed: Schon XLCatheter size ([place]): 14Catheter length (cm): 15Catheter flush: Heparin (1000 [...] Verified Date/Time: 11/05/2018 19:49:40 Read ing Location: [facility] P048 Angio Body Reading Room [facility] W/PLT COUNT & AUTO [id number] 10:46:00* Test Item Value Reference Range Interpretation [...] comment: User comments: Slide comments: BASIC METABOLIC [id number] 06:48:00* Test Item Value Reference Range Interpretation [...] FOR DIALYSIS PATIENTS. Specimen markedly ictericHEPATIC FUNCTION [id number] 06:48:00* Test Item Value Reference Range Interpretation [...] 347) 82 U/L 6-55 H Specimen markedly accmwfgHTAFJNEADV1083-01-52 06:44:00* Test Item Value Reference Range Interpretation Comments PHOSPHORUS (BEAKER) (test code = 604) 3.7 mg/dL 2.3-4.7 [id number] 06:44:00* Test Item Value Reference Range Interpretation Comments MAGNESIUM (BEAKER) (test code = 627) 2.5 mg/dL 1.6-2.6 PT/[id number] 05:49:00* Test Item Value Reference Range Interpretation [...] for patie nts wiht mechanical heart valves.PROTHROMBIN TIME/[id number] 05:48:00* Test Item Value Reference Range Interpretation [...] wiht mechanical heart valves.URINALYSIS W/ REFLEX URINE [id number] 20:41:00* Test Item Value Reference Range Interpretation [...] 1574) Rare SOURCE(BEAKER) (test code = 2795) [id number] 14:10:00* Test Item Value Reference Range Interpretation Comments AMMONIA (BEAKER) (test code = 348) 101 mol/L 18-72 H CBC W/PLT COUNT & AUTO [id number] 10:57:00* Test Item Value Reference Range Interpretation [...] (BEAKER) (test code = 474) 1+ few [id number] 10:35:00* Test Item Value Reference Range Interpretation Comments MAGNESIUM (BEAKER) (test code = 627) 2.4 mg/dL 1.6-2.6 HEPATIC FUNCTION [id number] 05:15:00* Test Item Value Reference Range Interpretation [...] U/L 6-55 H Specimen markedly ictericBASIC METABOLIC [id number] 05:14:00* Test Item Value Reference Range Interpretation [...] APPLICABLE FOR DIALYSIS PATIENTS. Specimen markedly ictericPROTHROMBIN TIME/[id number] 04:51:00* Test Item Value Reference Range Interpretation [...] patie nts wiht mechanical heart valves.HEPATIC FUNCTION [id number] 06:30:00* Test Item Value Reference Range Interpretation [...] 52 U/L 6-55 Specimen markedly ictericBASIC METABOLIC [id number] 06:30:00* Test Item Value Reference Range Interpretation [...] APPLICABLE FOR DIALYSIS PATIENTS. Specimen markedly ictericPROTHROMBIN TIME/[id number] 05:42:00* Test Item Value Reference Range Interpretation [...] mechanical heart valves.CBC W/PLT COUNT & AUTO [id number] 05:10:00* Test Item Value Reference Range Interpretation [...] = 2801) 1 % 0-1 BASIC METABOLIC [id number] 07:07:00* Test Item Value Reference Range Interpretation [...] FOR DIALYSIS PATIENTS. Specimen markedly ictericHEPATIC FUNCTION [id number] 07:06:00* Test Item Value Reference Range Interpretation [...] 347) 49 U/L 6-55 Specimen markedly ictericPROTHROMBIN TIME/[id number] 06:21:00* Test Item Value Reference Range Interpretation [...] mechanical heart valves.CBC W/PLT COUNT & AUTO [id number] 06:04:00* Test Item Value Reference Range Interpretation [...] code = 2801) 1 % 0-1 BLOOD [id number] 20:01:00* Test Item Value Reference Range Interpretation Comments CULTURE (BEAKER) (test code = 1095) No growth in 5 days BLOOD [id number] 20:01:00* Test Item Value Reference Range Interpretation Comments CULTURE (BEAKER) (test code = 1095) No growth in 5 days BASIC METABOLIC [id number] 08:05:00* Test Item Value Reference Range Interpretation [...] FOR DIALYSIS PATIENTS. Specimen markedly ictericHEPATIC FUNCTION [id number] 08:04:00* Test Item Value Reference Range Interpretation [...] 347) 37 U/L 6-55 Specimen markedly ictericPROTHROMBIN TIME/[id number] 06:14:00* Test Item Value Reference Range Interpretation [...] mechanical heart valves.CBC W/PLT COUNT & AUTO [id number] 06:13:00* Test Item Value Reference Range Interpretation [...] = 2801) 1 % 0-1 HEPATIC FUNCTION [id number] 06:59:00* Test Item Value Reference Range Interpretation [...] 35 U/L 6-55 Specimen markedly ictericBASIC METABOLIC [id number] 06:56:00* Test Item Value Reference Range Interpretation [...] Specimen markedly ictericCBC W/PLT COUNT & AUTO [id number] 05:54:00 * Test Item Value Reference Range [...] code = 2801) 1 % 0-1 PROTHROMBIN TIME/[id number] 05:46:00* Test Item Value Reference Range Interpretation [...] patie nts wiht mechanical heart valves.Sodium, random [id number] 23:21:00* Test Item Value Reference Range Interpretation Comments Sodium Urine (test code = 2955-3) 34 meq/L PHILLIP (test code = PHILLIP) Reference Range: No Normals [facility] Center[facility], RANDOM [id number] 23:21:00* Test Item Value Reference Range Interpretation Comments SODIUM URINE (BEAKER) (test code = 243) 34 meq/L Reference Range: No NormalsBODY FLUID CULTURE + GRAM [id number] 10:20:00* Test Item Value Reference Range Interpretation Comments CULTURE (BEAKER) (test code = 1095) No growth GRAM STAIN RESULT (BEAKER) (test code = 1123) <1+ White blood cells seen GRAM STAIN RESULT (BEAKER) (test code = 28251) No organisms seen HEPATIC FUNCTION [id number] 05:14:00* Test Item Value Reference Range Interpretation [...] 33 U/L 6-55 Specimen markedly ictericBASIC METABOLIC [id number] 05:13:00* Test Item Value Reference Range Interpretation [...] Specimen markedly ictericCBC W/PLT COUNT & AUTO [id number] 04:24:00 * Test Item Value Reference Range [...] = 2801) 2 % 0-1 H PROTHROMBIN TIME/[id number] 04:21:00* Test Item Value Reference Range Interpretation [...] patie nts wiht mechanical heart valves.MISCELLANEOUS LAB [id number] 11:32:00* Test Item Value Reference Range Interpretation Comments SCAN RESULT (test code = 1772473) CBC W/PLT COUNT & AUTO [id number] 09:11:00* Test Item Value Reference Range Interpretation [...] comment: User comments: Slide comments: BASIC METABOLIC [id number] 05:26:00* Test Item Value Reference Range Interpretation [...] FOR DIALYSIS PATIENTS. Specimen markedly ictericHEPATIC FUNCTION [id number] 05:26:00* Test Item Value Reference Range Interpretation [...] 347) 32 U/L 6-55 Specimen markedly ictericPROTHROMBIN TIME/[id number] 04:51:00* Test Item Value Reference Range Interpretation [...] patie nts wiht mechanical heart valves.HEPATIC FUNCTION [id number] 05:37:00* Test Item Value Reference Range Interpretation [...] 28 U/L 6-55 Specimen markedly ictericBASIC METABOLIC [id number] 05:37:00* Test Item Value Reference Range Interpretation [...] Specimen markedly ictericCBC W/PLT COUNT & AUTO [id number] 04:10:00 * Test Item Value Reference Range [...] = 2801) 2 % 0-1 H PROTHROMBIN TIME/[id number] 04:07:00* Test Item Value Reference Range Interpretation [...] for patie nts wiht mechanical heart valves.BLOOD [id number] 20:01:00* Test Item Value Reference Range Interpretation Comments CULTURE (BEAKER) (test code = 1095) No growth in 5 days BLOOD [id number] 20:01:00* Test Item Value Reference Range Interpretation Comments CULTURE (BEAKER) (test code = 1095) No growth in 5 days U/S, XXRGIMTZQGUI2370-83-03 16:58:00Worsening leukocytosis, to rule out SBP. Please do not remove >3 LReason for exam:->ascites, rule out SBPFINAL REPORT Paracentesis dated 10/27/2018 Procedure: Ultrasound-guided paracentesis. Preprocedure diagnosis: Ascites Postprocedure diagnosis: Ascites Conscious sedation: None. Radiologist: Keith Garcia M.D. [employer] Driver: None Anesthesia: 1% Xylocaine mixed with sodium bicarbonate local anesthesia. Te chnique: After obtaining informed consent, ultrasound-guided paracentesis was p erformed under usual sterile technique. Using a 5 british virgin islander drainage catheter, punc ture was made in the right lower quadrant abdomen. Approximately 2000 cc of mayra r yellowish fluid was removed. Patient tolerated the procedure well without comp lication. Complication: None Graft/Implant: None Estimated Blood Loss: None Impr ession: Ultrasound-guided paracentesis. Signed: Keith Garcia Verified Da te/Time: 10/27/2018 16:58:17 Reading Location: [place] [address] CT Body Reading Viktoriya m wxlhambtabnn0728-46-86 16:58:00Interface, External Ris In - 10/27/2018 5:00 PM CDTFINAL REPORT Paracentesis dated 10/27/2018 Procedure: Ultrasound-guided paracentesis. Preprocedure diagnosis: Ascites Postprocedure diagnosis: Ascites Conscious sedation: None. Radiologist: Keith Garcia M.D. [employer] Driver: None Anesthesia: 1% Xylocaine mixed with sodium bicarbonate local anesthesia. Technique: After obtaining informed consent, ultrasound-guided paracentesis was performed under usual sterile technique. Using a 5 british virgin islander drainage catheter, puncture was made in the right lower quadrant abdomen. Approximately 2000 cc of clear yellowish fluid was removed. Patient tolerated the procedure well without complication. Complication: None Graft/Implant: None Estimated Blood Loss: None Impression: Ultrasound-guided paracentesis. Signed: Keith Garcia Verified Date/Time: 10/27/2018 16:58:17 Reading Location: [facility] C013Y CT Body Reading Room [facility] HospitalBody [facility] cell count with jgpqrbblhwco1658-39-75 16:24:00* Test Item Value Reference Range Interpretation Comments Appearance (test code = 9335-1) Slightly Hazy Clear A Color (test code = 6824-7) [place] Colorless, Straw A RBCs (test code = 73038-2) 309 <=1 /cu mm H Adjusted WBC Count (test code = 31395-8) 147 <=5 /cu mm H Lining Cells (test code = 00515-3) 54 <=1 /cu mm H % Segs (test code = 56105-3) 10 % % Lymphs (test code = 98314-2) 18 % % Monos (test code = 14308-4) 72 % % Eos (test code = 48502-9) 0 % % Baso (test code = 24080-8) 0 % Container Body Fluid (test code = 2873) EDTA Tube Lab Interpretation (test code = 88389-4) Abnormal [facility] HospitalBODY FLUID CELL COUNT WITH VWDDWVLJDFKV2908-08-58 16:24:00* Test Item Value Reference Range Interpretation [...] code = 2873) EDTA Tube LACTIC ACID, [id number] 13:51:00* Test Item Value Reference Range Interpretation Comments LACTATE BLOOD VENOUS (2) (BEAKER) (test code = 2872) 0.8 mmol/L 0 .5-2.2 Sepsis screeningSpecimen markedly ictericBASIC METABOLIC [id number] 05:53:00* Test Item Value Reference Range Interpretation [...] FOR DIALYSIS PATIENTS. Specimen markedly ictericHEPATIC FUNCTION [id number] 05:51:00* Test Item Value Reference Range Interpretation [...] 347) 30 U/L 6-55 Specimen markedly ictericPROTHROMBIN TIME/[id number] 05:07:00* Test Item Value Reference Range Interpretation [...] mechanical heart valves.CBC W/PLT COUNT & AUTO VWGPZRXZBVBS0422-83-90 04:52:00* Test Item Value Reference Range Interpretation [...] 2801) 2 % 0-1 H U/S, ABDOMINAL, [id number] 13:11:00Abdomen limited area? Add comment if clarification [...] [place] Verified Date/Time: 10/26/2018 13:11:32 Reading Location: [address] Transitional Reading Room abdomen euapmxr0855-94-57 13:11:00Interface, External Ris In - 10/26/2018 1:13 [...] [place] Verified Date/Time: 10/26/2018 13:11:32 Reading Location: [address] Transitional Reading Room [facility] HospitalBASI METABOLIC [id number] 08:13:00* Test Item Value Reference Range Interpretation [...] FOR DIALYSIS PATIENTS. Specimen markedly ictericHEPATIC FUNCTION [id number] 08:13:00* Test Item Value Reference Range Interpretation [...] Specimen markedly ictericCBC W/PLT COUNT & AUTO TTOZTPXHKNDQ4504-10-91 05:46:00 * Test Item Value Reference Range [...] = 2801) 2 % 0-1 H PROTHROMBIN TIME/[id number] 05:43:00* Test Item Value Reference Range Interpretation Comments PROTIME ([facility]) (test code = 759) 21.2 seconds 11.9-14.2 H INR ([facility]) (test code = 370) 1.9 <=5.9 Effective 07/24/2018: PT Reference Range ChangeNew: 11.9-14.2 Previous: 11.7-14. 7RECOMMENDED COUMADIN/WARFARIN INR THERAPY RANGESSTANDARD DOSE: 2.0-3.0 Include s: PROPHYLAXIS for venous thrombosis, systemic embolization; TREATMENT for venou s thrombosis and/or pulmonary embolus.HIGH RISK: Target INR is 2.5-3.5 for patie nts wiht mechanical heart valves.TISSUE [id number] 18:03:00Surgical Pathology Report Case: [id number] Authorizing Provider: Shy Parisi MD Collected: 10/19/2018 0856 Ordering Location: [address] Received: 10/21/2018 0830 Service Pathologist: Jefferson Martin MD Specimens: A) - Large Intestine, Colon - Cecum, HEALING ULCER BX B) - Polyp, Colon - Right/Ascending, TAKEN BY FRCP Given 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 CPT: 28401; 40263 x 4Addendum electronica lly signed by Samina Arteaga MD on 10/25/2018 at 6:03 PMA. COLON, CECUM , HEALING ULCER, BIOPSY: - COLONIC MUCOSA WITH GRANULATION TISSUE, COMPATIBL E WITH HEALING ULCER - NEGATIVE FOR DYSPLASIA OR CARCINOMA (SEE COMMENT)B. C OLON, ASCENDING, POLYPECTOMY: - TUBULAR ADENOMA Signing Pathologist Dir ect Phone Line: [phone] signed by Jefferson Martin MD on 9 at 7:56 PMA. No dense lymphoid infiltrates are seen in the current biopsy. He matopathology consultation will be issued in an addendum.[id number] X 2Pre and postop diagnosis: gastrointestinal hemorrhage, [...] in toto in B1. CG/pl Performed.HEPATIC FUNCTION [id number] 04:53:00* Test Item Value Reference Range Interpretation [...] 35 U/L 6-55 Specimen markedly ictericBASIC METABOLIC [id number] 04:53:00* Test Item Value Reference Range Interpretation [...] APPLICABLE FOR DIALYSIS PATIENTS. Specimen markedly ictericPROTHROMBIN TIME/QSV4195-20-71 04:27:00* Test Item Value Reference Range Interpretation [...] mechanical heart valves.CBC W/PLT COUNT & AUTO FMUDCCUWFPPU2802-73-17 04:13:00* Test Item Value Reference Range Interpretation [...] 2801) 2 % 0-1 H BASIC METABOLIC [id number] 05:54:00* Test Item Value Reference Range Interpretation [...] FOR DIALYSIS PATIENTS. Specimen markedly ictericHEPATIC FUNCTION [id number] 05:54:00* Test Item Value Reference Range Interpretation [...] = 347) 31 U/L 6-55 Specimen markedly acwmfilSHZRLCNEXU9455-02-24 05:53:00* Test Item Value Reference Range Interpretation Comments PHOSPHORUS (BEAKER) (test code = 604) 2.0 mg/dL 2.3-4.7 L OPKZBCWDY8215-21-48 05:53:00* Test Item Value Reference Range Interpretation Comments MAGNESIUM (BEAKER) (test code = 627) 2.2 mg/dL 1.6-2.6 CBC W/PLT COUNT & AUTO OLLITSKCFGLX7319-30-96 05:27:00* Test Item Value Reference Range Interpretation [...] = 2801) 2 % 0-1 H PROTHROMBIN TIME/[id number] 05:27:00* Test Item Value Reference Range Interpretation [...] patie nts wiht mechanical heart valves.BASIC METABOLIC [id number] 11:14:00* Test Item Value Reference Range Interpretation [...] FOR DIALYSIS PATIENTS. ADD-ONSpecimen markedly ictericMISCELLANEOUS LAB [id number] 07:36:00* Test Item Value Reference Range Interpretation Comments SCAN RESULT (test code = 0009695) HEPATIC FUNCTION [id number] 05:32:00* Test Item Value Reference Range Interpretation [...] = 347) 33 U/L 6-55 Specimen markedly pteecihPHHWKJWVYZ5417-05-25 05:21:00* Test Item Value Reference Range Interpretation Comments PHOSPHORUS (BEAKER) (test code = 604) 2.2 mg/dL 2.3-4.7 L [id number] 05:21:00* Test Item Value Reference Range Interpretation Comments MAGNESIUM (BEAKER) (test code = 627) 2.2 mg/dL 1.6-2.6 PROTHROMBIN TIME/[id number] 05:00:00* Test Item Value Reference Range Interpretation [...] mechanical heart valves.CBC W/PLT COUNT & AUTO JNEFNTJLQLCC7057-25-56 04:51:00* Test Item Value Reference Range Interpretation [...] = 2801) 2 % 0-1 H BLOOD [id number] 20:01:00* Test Item Value Reference Range Interpretation Comments CULTURE (BEAKER) (test code = 1095) No growth in 5 days BLOOD [id number] 20:01:00* Test Item Value Reference Range Interpretation Comments CULTURE (BEAKER) (test code = 1095) No growth in 5 days URINALYSIS W/ REFLEX URINE [id number] 17:08:00* Test Item Value Reference Range Interpretation [...] SOURCE(BEAKER) (test code = 2795) BASIC METABOLIC [id number] 10:18:00* Test Item Value Reference Range Interpretation [...] Specimen markedly ictericCBC W/PLT COUNT & AUTO [id number] 09:06:00 * Test Item Value Reference Range [...] 347) 37 U/L 6-55 Specimen markedly ictericPROTHROMBIN TIME/[id number] 06:10:00* Test Item Value Reference Range Interpretation [...] mechanical heart valves.Peripheral Blood Smear - Path Tmvtgt2215-56-57 15:06:00* Test Item Value Reference Range Interpretation Comments RBC Morphology (test code = 2846) Polychromasia WBC Morphology (test code = 2847) Toxic Granulation Pathologist Review (test code = 2640) Cell counts confirmed. Pathologist: (test code = 2849) Samina Arteaga M.D. (electronic si gnature) [facility] HospitalPERIPHERAL BLOOD SMEAR - PATHOLOGIST REVIEW 2018-10-21 15:06:00* Test Item Value Reference Range Interpretation Comments RBC MORPHOLOGY (BEAKER) (test code = 2846) Polychromasia WBC MORPHOLOGY (BEAKER) (test code = 2847) Toxic Granulation PERIPHERAL SMR REVIEW (BEAKER) (test code = 2640) Cell counts confi rmed. [id number] (BEAKER) (test code = 2849) Colleen Arteaga [...] Slide comments: CBC W/PLT COUNT & AUTO [id number] 09:56:00* Test Item Value Reference Range Interpretation [...] 0 /100 WBC 0 -0 BASIC METABOLIC [id number] 09:01:00* Test Item Value Reference Range Interpretation [...] DIALYSIS PATIENTS. Specimen markedly ictericVITAMIN B12 AND [id number] 08:56:00* Test Item Value Reference Range Interpretation Comments VITAMIN B12 (BEAKER) (test code = 774) > pg/mL 213-816 H FOLATE (BEAKER) (test code = 362) 15.2 ng/mL >=7.0 2D Echo W/Doppler(CW/PW/Color)2018-10-21 08:44:03Ejection FractionSLEH ECHO HEARTLAB MKCKESSON CPACSInterface, External Ris In - 10/21/2018 8:44 AM CDTTransthoracic Echocardiography Report (TTE) Demographics Patient Name INDRA GALVAN Date of Study 10/20/2018 YAN CORDERO Gender Male Visit Number [id number] Race Unknown Room Number 743 Number Date of 1980 Referring Mandeep Taylor Physician Age 37 year(s) [employer] Wilmer Etienne Interpreting Physician MELVA Hanson Procedure Type of Study TTE procedure:2DECHO W DOPPLER(CW/PW/COLOR) (Routine) Indications:Known or suspected heart ericka lure.Clinical HistoryHGB 8.1HCT 24.0 %FATTY LIVERHTNOBESITYContrast Medium: Defi nity. Amount - 2 mlHeight: 72 inches Weight: 110.68 kg (244 lbs) BSA: 2.32 m^2 B OH: 33.09kg/m^2HR: 96 bpm BP: 113/61 mmHg Summary [...] CO: 9.21 l/min LVOT CI: 3.97 l/min/m^2 [facility] HospitalRETICULOCYTE [id number] 06:56:00* Test Item Value Reference Range Interpretation Comments RETICULOCYTE COUNT PCT (BEAKER) (test code = 575) 8.0 % 0.5- 1.8 H HEPATIC FUNCTION [id number] 06:35:00* Test Item Value Reference Range Interpretation [...] = 347) 34 U/L 6-55 Specimen markedly eaoibnwLZWWSBLSBTP5203-55-62 06:12:00* Test Item Value Reference Range Interpretation Comments HAPTOGLOBIN (BEAKER) (test code = 366) 67 mg/dL 14-258 PROTHROMBIN TIME/[id number] 05:26:00* Test Item Value Reference Range Interpretation [...] 452 U/L 125-2 20 H BASIC METABOLIC [id number] 07:58:00* Test Item Value Reference Range Interpretation [...] FOR DIALYSIS PATIENTS. Specimen markedly ictericHEPATIC FUNCTION [id number] 07:38:00* Test Item Value Reference Range Interpretation [...] = 347) 26 U/L 6-55 Specimen markedly cmrdchsEPYWFCRZK9972-52-22 07:36:00* Test Item Value Reference Range Interpretation Comments MAGNESIUM (BEAKER) (test code = 627) 2.2 mg/dL 1.6-2.6 [id number] 07:36:00* Test Item Value Reference Range Interpretation Comments PHOSPHORUS (BEAKER) (test code = 604) 2.8 mg/dL 2.3-4.7 CBC W/PLT COUNT & AUTO XQQQJAIPZFDP1775-92-50 06:58:00* Test Item Value Reference Range Interpretation [...] = 2801) 2 % 0-1 H PROTHROMBIN TIME/[id number] 06:50:00* Test Item Value Reference Range Interpretation [...] mechanical heart valves.CBC W/PLT COUNT & AUTO FAWBVAWUNVGW3509-80-28 22:22:00* Test Item Value Reference Range Interpretation [...] 0 -0 CBC W/PLT COUNT & AUTO [id number] 16:47:00* Test Item Value Reference Range Interpretation [...] 0 -0 CBC W/PLT COUNT & AUTO [id number] 09:23:00* Test Item Value Reference Range Interpretation [...] = 347) 20 U/L 6-55 Specimen markedly dbdytjvNZTJQUEZZ2789-09-19 05:23:00* Test Item Value Reference Range Interpretation Comments MAGNESIUM (BEAKER) (test code = 627) 2.2 mg/dL 1.6-2.6 BASIC METABOLIC [id number] 05:23:00* Test Item Value Reference Range Interpretation [...] NOT APPLICABLE FOR DIALYSIS PATIENTS. Specimen markedly zsolbbzDTULTPPYXX0474-14-50 05:23:00* Test Item Value Reference Range Interpretation Comments PHOSPHORUS (BEAKER) (test code = 604) 1.6 mg/dL 2.3-4.7 L PROTHROMBIN TIME/[id number] 04:53:00* Test Item Value Reference Range Interpretation [...] ients with mechanical heart valves.Urea Nitrogen, random wiwls8828-18-74 02:02:00* Test Item Value Reference Range Interpretation Comments Urea Nitrogen, Ur (test code = 3095-7) 120 mg/dL PHILLIP (test code = PHILLIP) Reference Range: No Normals [facility] CenterCREAT[facility]INE, RANDOM [id number] 02:02:00* Test Item Value Reference Range Interpretation Comments CREATININE URINE (BEAKER) (test code = 375) 44.3 mg/dL Reference Range: No NormalsSODIUM, RANDOM [id number] 02:02:00* Test Item Value Reference Range Interpretation Comments SODIUM URINE (BEAKER) (test code = 243) 93 meq/L Reference Range: No NormalsUREA NITROGEN, RANDOM [id number] 02:02:00* Test Item Value Reference Range Interpretation Comments UREA NITROGEN URINE (BEAKER) (test code = 538) 120 mg/dL Reference Range: No NormalsCBC W/PLT COUNT & AUTO TEROBFYEJOJE8245-72-54 20:17:00* Test Item Value Reference Range Interpretation [...] Slide comments: CBC W/PLT COUNT & AUTO [id number] 13:37:00* Test Item Value Reference Range Interpretation [...] Slide comments: CBC W/PLT COUNT & AUTO [id number] 10:50:00* Test Item Value Reference Range Interpretation [...] comment: User comments: Slide comments: LACTIC ACID, [id number] 07:43:00* Test Item Value Reference Range Interpretation Comments LACTATE BLOOD VENOUS (2) (BEAKER) (test code = 2872) 0.9 mmol/L 0 .5-2.2 Specimen slightly hemolyzed Specimen markedly ictericHEPATIC FUNCTION [id number] 06:45:00* Test Item Value Reference Range Interpretation [...] 19 U/L 6-55 Specimen markedly ictericBASIC METABOLIC [id number] 06:44:00* Test Item Value Reference Range Interpretation [...] APPLICABLE FOR DIALYSIS PATIENTS. Specimen markedly ictericPROTHROMBIN TIME/[id number] 05:44:00* Test Item Value Reference Range Interpretation [...] mechanical heart valves.CBC W/PLT COUNT & AUTO GRJZUSVTFFMC0190-63-69 21:39:00* Test Item Value Reference Range Interpretation [...] LYMPHOCYTES - ABS (CELLAVISION)(BEAKER) (test code = 1978) 0.18 K/uL 0.00-0.00 H TOTAL COUNTED (BEAKER) (test code = 1351) 100 WBC MORPHOLOGY (BEAKER) (test code = 487) Normal GIANT PLATELETS (BEAKER) (test code = 313) Present ANISOCYTOSIS (BEAKER) (test code = 961) 1+ few ARTIFACT (CELLAVISION)(BEAKER) (test code = 3432) Present PLATELET CONCENTRATION (CELLAVISION)(BEAKER) (test code = 3438) Cheryl quate Received comment: User comments: Slide comments: URINALYSIS W/ REFLEX URINE [id number] 18:43:00* Test Item Value Reference Range Interpretation [...] 516) < /HPF SOURCE(BEAKER) (test code = 3371) BASIC METABOLIC [id number] 18:23:00* Test Item Value Reference Range Interpretation [...] FOR DIALYSIS PATIENTS. Specimen markedly ictericU/S, ABDOMINAL, [id number] 17:43:00With doppler Reason for exam:->elevated liver enzymes, [...] Pancreas obscured from view. Signed: Andrew Sloan Verified Date/Time: 10/17/2018 17:43:28 Reading Location: [address] Consult Reading Room U/S, DUPLEX, [id number] 17:43:00With doppler Reason for exam:->elevated liver enzymes, [...] Verified Date /Time: 10/17/2018 17:43:28 Reading Location: [address] Consult Reading Room mvsfnkb2068-75-49 17:43:00Interface, External Ris In - 10/17/2018 5:45 [...] MDReport Verified Date/Time: 10/17/2018 17:43:28 Reading Location: [address] Consult Reading Room [facility]US abdomen ieignmzi6624-80-86 17:43:00Interface, External Ris In - 10/17/2018 5:45 [...] MDReport Verified Date/Time: 10/17/2018 17:43:28 Reading Location: [address] Consult Reading Room [facility] UYULUQAXL2824-91-04 17:35:00* Test Item Value Reference Range Interpretation Comments MAGNESIUM (BEAKER) (test code = 627) 2.3 mg/dL 1.6-2.6 CREATINE KINASE (CK)2018-10-17 16:29:00* Test Item Value Reference Range Interpretation Comments CREATINE KINASE TOTAL (BEAKER) (test code = 380) 29 U/L 29-20 0 MFTSFYAPJHEET8138-93-34 16:11:00* Test Item Value Reference Range Interpretation Comments PROCALCITONIN (BEAKER) (test code = 3036) 0.71 ng/mL <0.05 H SEPSIS RISK (ng/mL)Low: 0.05-0.50Intermediate: 0.51-2.00High: > =2.01LACTIC ACID, [id number] 15:42:00* Test Item Value Reference Range Interpretation Comments LACTATE BLOOD VENOUS (2) (BEAKER) (test code = 2872) 1.2 mmol/L 0 .5-2.2 Specimen slightly hemolyzed Specimen markedly ictericCBC W/PLT COUNT & AUTO FJFGFFJAOVWS7811-06-55 15:29:00 * Test Item Value Reference Range [...] = 413) 0 /100 WBC 0 -0 [id number] 15:22:00* Test Item Value Reference Range Interpretation Comments ETHANOL (BEAKER) (test code = 400) < mg/dL <=10 CBC W/PLT COUNT & AUTO [id number] 14:47:00* Test Item Value Reference Range Interpretation [...] 21 U/L 6-55 Specimen markedly ictericBASIC METABOLIC [id number] 08:16:00* Test Item Value Reference Range Interpretation [...] PATIENTS. Specimen markedly ictericURINALYSIS W/ REFLEX URINE TJSKAIW4722-49-69 03:31:00* Test Item Value Reference Range Interpretation [...] (test code = 2795) Bilirubin Crystals seenBILIRUBIN, [id number] 00:59:00* Test Item Value Reference Range Interpretation Comments BILIRUBIN DIRECT (BEAKER) (test code = 706) 24.2 mg/dL 0.1-0.5 H Specimen slightly hemolyzed COMPREHENSIVE METABOLIC [id number] 00:58:00* Test Item Value Reference Range Interpretation [...] NOT APPLICABLE FOR DIALYSIS PATIENTS. Specimen markedly mdjgxghWIDVCRHSI3162-12-72 00:13:00* Test Item Value Reference Range Interpretation Comments MAGNESIUM (BEAKER) (test code = 627) 1.5 mg/dL 1.6-2.6 L Specimen slightly hemolyzed PROTHROMBIN TIME/[id number] 23:47:00* Test Item Value Reference Range Interpretation [...] mechanical heart valves.CBC W/PLT COUNT & AUTO TWOTHUYIYOMM7183-35-57 23:43:00* Test Item Value Reference Range Interpretation [...] 0-1 H RAD, CHEST, 1 VIEW, NON [id number] 22:36:00Reason for exam:->SOBShould this be performed at [...] MDReport Verified Date/Time: 10/16/2018 22:36:02 Lactic Acid Xreyc4006-62-11 20:02:00* Test Item Value Reference Range Interpretation Comments Lactic Acid Level (test code = Lactic Acid Level) 18.4 4.5- 19.8 [facility]00 [place] [address] Patient Name: INDRA GALVAN JR MR #: [id number] : 1980 Age/Sex: 37/M Req #: [id number] Adm Physician: Ordered by: MARYLU DUQUE MD Report #: [id number] Location: ER Room/Bed: Procedure: NM/HEPTOBILIARY Exam Date: [...] COPY TO: MARYLU DUQUE MD CT ABDOMEN/PELVIS [id number] 17:40:00 [place] [address] Patient Name: INDRA GALVAN JR MR #: [id number] : 1980 Age/Sex: 37/M Req #: [id number] Adm Physician: Ordered by: MARYLU DUQUE MD Report #: [id number] Location: ER Room/Bed: Procedure: CT/CT ABDOMEN/PELVIS W [...] 10/16/181749 COPY TO: MARYLU DUQUE MD Prothrombin [id number] 17:34:00* Test Item Value Reference Range Interpretation Comments Prothrombin Time (test code = 5902-2) 18.5 11.9-14.5 [facility] TexasProthromb Time International Ratio 2018-10-16 17:34:00* Test Item Value Reference Range Interpretation Comments Prothromb Time International Ratio (test code = 6301-6) 1.48 Oral Anticoagulant Therapy INR Values:1. Low Intensity Therapy 1.5 - 2.02 . Moderate Intensity Therapy 2.0 - 3.03. High Intensity Therapy(1) 2.5 - 3. 54. High Intensity Therapy(2) 3.0 - 4.05. Panic Value INR > 5.0 [facility] TexasAcetaminophen Pxonx1710-96-09 17:30:00* Test Item Value Reference Range Interpretation Comments Acetaminophen Level (test code = 41495-6) < 3 10-30 L [facility] TexasUrine [id number] 16:09:00* Test Item Value Reference Range Interpretation Comments Urine WBC (test code = 5821-4) 0-5 0-5 [facility] TexasUrine [id number] 16:09:00* Test Item Value Reference Range Interpretation Comments Urine RBC (test code = 24317-9) 6-10 0-5 [facility] TexasUrine Efwhtmpn0747-99-39 16:09:00* Test Item Value Reference Range Interpretation Comments Urine Bacteria (test code = 56689-0) MANY NONE H [facility] TexasUrine Epithelial Kcflb6609-23-09 16:09:00 * Test Item Value Reference Range Interpretation Comments Urine Epithelial Cells (test code = 09507-7) FEW NONE [facility] TexasUrine Amorphous Iasxjacd1408-38-32 16:09:00* Test Item Value Reference Range Interpretation Comments Urine Amorphous Sediment (test code = 8246-1) MODERATE FEW H [facility] TexasUrine Fine Granular Fmthq1788-36-68 16:09:00* Test Item Value Reference Range Interpretation Comments Urine Fine Granular Casts (test code = 00303-8) 1-5 >0 H [facility] TexasUrine Ozlhb7406-18-22 15:58:00* Test Item Value Reference Range Interpretation Comments Urine Color (test code = 5778-6) BROWN YELLOW H [facility] TexasUrine Gjdpyek7282-38-43 15:58:00* Test Item Value Reference Range Interpretation Comments Urine Clarity (test code = 41101-5) CLOUDY CLEAR H [facility] TexasUrine Specific Mxaknxj4817-78-22 15:58:00 * Test Item Value Reference Range Interpretation Comments Urine Specific [place] (test code = 5811-5) 1.010 1.010-1.02 5 [facility] TexasUrine [id number] 15:58:00* Test Item Value Reference Range Interpretation Comments Urine pH (test code = 98262-6) 7 5-7 [facility] TexasUrine Leukocyte Mwijcgnu7502-64-37 15:58:00* Test Item Value Reference Range Interpretation Comments Urine Leukocyte Esterase (test code = 98231-7) SMALL NEGATIV E [facility] TexasUrine Tnvciba3497-53-80 15:58:00* Test Item Value Reference Range Interpretation Comments Urine Nitrite (test code = 94672-2) POSITIVE NEGATIVE H [facility] TexasUrine Cfeorau6682-15-55 15:58:00* Test Item Value Reference Range Interpretation Comments Urine Protein (test code = 28111-0) 2+ NEGATIVE H [facility] TexasUrine Glucose (UA)2018-10-16 15:58:00* Test Item Value Reference Range Interpretation Comments Urine Glucose (UA) (test code = 32488-6) 2+ NEGATIVE H [facility] TexasUrine Fdubbud4066-39-83 15:58:00* Test Item Value Reference Range Interpretation Comments Urine Ketones (test code = 07681-0) TRACE NEGATIVE H [facility] TexasUrine Bydkkuzsxkbh2614-50-83 15:58:00* Test Item Value Reference Range Interpretation Comments Urine Urobilinogen (test code = 35012-5) 1 0.2-1 [facility] TexasUrine Qyrjjvdkc8059-14-81 15:58:00* Test Item Value Reference Range Interpretation Comments Urine Bilirubin (test code = 1977-8) LARGE NEGATIVE [facility] TexasUrine Ndnfq3231-89-76 15:58:00* Test Item Value Reference Range Interpretation Comments Urine Blood (test code = 27893-5) 3+ NEGATIVE [facility] TexasB-Type Natriuretic Kwyzhvw4624-70-26 15:31:00* Test Item Value Reference Range Interpretation Comments B-Type Natriuretic Peptide (test code = 98482-8) 403.4 0-100 H [facility] TexasCreatine Kinase AF6904-85-13 15:20:00* Test Item Value Reference Range Interpretation Comments Creatine Kinase MB (test code = 09777-5) 0.40 0-5.0 [facility] TexasTroponin [id number] 15:20:00* Test Item Value Reference Range Interpretation Comments Troponin I (test code = EHQ0314) 0.012 0-0.300 [facility] Planoodium Vmhfs1466-88-37 15:19:00* Test Item Value Reference Range Interpretation Comments Sodium Level (test code = 2951-2) 134 136-145 L [facility] TexasPotassium Zwzqd8769-36-21 15:19:00* Test Item Value Reference Range Interpretation Comments Potassium Level (test code = 2823-3) 2.7 3.5-5.1 LL Results repeated and called to DR. KELSEY at 1518 on 10/16/18 by VICKY WHITTAKER. Read back and verified.[facility] TexasChloride Level 2018-10-16 15:19:00* Test Item Value Reference Range Interpretation Comments Chloride Level (test code = 2075-0) 93 98-107 L [facility] TexasCarbon Dioxide Fprmt5949-05-50 15:19:00* Test Item Value Reference Range Interpretation Comments Carbon Dioxide Level (test code = 2028-9) 28 22-29 [facility] TexasAnion Dgp2986-79-71 15:19:00* Test Item Value Reference Range Interpretation Comments Anion Gap (test code = 48869-7) 15.7 8-16 [facility] TexasBlood Urea Rdomzvyf1514-34-22 15:19:00* Test Item Value Reference Range Interpretation Comments Blood Urea Nitrogen (test code = 3094-0) 9 7-26 [facility] TexasCreatinine2019-08-21 15:19:00* Test Item Value Reference Range Interpretation Comments Creatinine (test code = 2160-0) 1.47 0.72-1.25 H [facility] TexasBUN/Creatinine Ppcdq3150-43-59 15:19:00* Test Item Value Reference Range Interpretation Comments BUN/Creatinine Ratio (test code = 3097-3) 6 6-25 [facility] of TexasEstimat Glomerular Filtration Rate 2018-10-16 15:19:00* Test Item Value Reference Range Interpretation Comments Estimat Glomerular Filtration Rate (test code = 899701432) 53 >60 L Ranges were taken from the National Kidney Disease Education Program and the [facility] [employer] literature.Reference ranges:60 or greater: Nbclpk05-09 ( for 3 consecutive months): Chronic kidney disease 15 or less: Kidney failureDell [facility]on Medical Center at The University of TexasGlucose Ayglz8446-95-90 15:19:00* Test Item Value Reference Range Interpretation Comments Glucose Level (test code = ZLR4956) 144 74-118 H [facility] TexasCalcium Dikdj9661-07-84 15:19:00* Test Item Value Reference Range Interpretation Comments Calcium Level (test code = 64922-6) 8.5 8.4-10.2 [facility] TexasTotal Pkkvmdgno5544-38-28 15:19:00* Test Item Value Reference Range Interpretation Comments Total Bilirubin (test code = 1975-2) > 25.0 0.2-1.2 H [facility] of TexasAspartate Amino Transf (AST/SGOT) 2018-10-16 15:19:00* Test Item Value Reference Range Interpretation Comments Aspartate Amino Transf (AST/SGOT) (test code = Aspartate Amino Transf (AST/SGOT)) 98 5-34 H [facility] TexasAlanine Aminotransferase (ALT/SGPT) 2018-10-16 15:19:00* Test Item Value Reference Range Interpretation Comments Alanine Aminotransferase (ALT/SGPT) (test code = 1742-6) 22 0-55 [facility] TexasTotal Lydjipz2986-62-98 15:19:00* Test Item Value Reference Range Interpretation Comments Total Protein (test code = 2885-2) 6.6 6.5-8.1 [facility] TexasAlbumin2019-08-21 15:19:00* Test Item Value Reference Range Interpretation Comments Albumin (test code = 1751-7) 2.5 3.5-5.0 L [facility] TexasGlobulin2019-08-21 15:19:00* Test Item Value Reference Range Interpretation Comments Globulin (test code = 25326-0) 4.1 2.3-3.5 H [facility] TexasAlbumin/Globulin Unwzw3363-72-36 15:19:00 * Test Item Value Reference Range Interpretation Comments Albumin/Globulin Ratio (test code = 1759-0) 0.6 0.8-2.0 L [facility] TexasAlkaline Iqzbykgntcq1689-52-28 15:19:00* Test Item Value Reference Range Interpretation Comments Alkaline Phosphatase (test code = 6768-6) 159 40-150 H [facility] TexasCreatine Flwheu0924-60-79 15:19:00* Test Item Value Reference Range Interpretation Comments Creatine Kinase (test code = 2157-6) 39 30-200 [facility] TexasWhite Blood Kfgsy6862-85-69 14:59:00* Test Item Value Reference Range Interpretation Comments White Blood Count (test code = 6690-2) 18.65 4.8-10.8 H [facility] TexasRed Blood Rwqij7418-74-27 14:59:00* Test Item Value Reference Range Interpretation Comments Red Blood Count (test code = 789-8) 2.11 4.3-5.7 L [facility] TexasHemoglobin2019-08-21 14:59:00* Test Item Value Reference Range Interpretation Comments Hemoglobin (test code = 65123-4) 7.7 14.0-18.0 L [facility] TexasHematocrit2019-08-21 14:59:00* Test Item Value Reference Range Interpretation Comments Hematocrit (test code = 4544-3) 22.2 38.2-49.6 L [facility] of TexasMean Corpuscular Vakwmk2100-96-33 14:59:00* Test Item Value Reference Range Interpretation Comments Mean Corpuscular Volume (test code = 787-2) 105.2 81-99 H [facility] TexasMean Corpuscular Eyqsvvpqty1014-55-38 14:59:00* Test Item Value Reference Range Interpretation Comments Mean Corpuscular Hemoglobin (test code = 785-6) 36.5 28-32 H [facility] TexasMean Corpuscular Hemoglobin Concent 2018-10-16 14:59:00* Test Item Value Reference Range Interpretation Comments Mean Corpuscular Hemoglobin Concent (test code = 786-4) 34.7 31-35 [facility] TexasRed Cell Distribution Oaznv6647-56-23 14:59:00* Test Item Value Reference Range Interpretation Comments Red Cell Distribution Width (test code = 24019-8) 14.0 11.7 -14.4 [facility] TexasPlatelet Cnxdk8791-72-72 14:59:00* Test Item Value Reference Range Interpretation Comments Platelet Count (test code = 777-3) 184 140-360 [facility] TexasNeutrophils (%) (Auto)2018-10-16 14:59:00 * Test Item Value Reference Range Interpretation Comments Neutrophils (%) (Auto) (test code = 77423-1) 80.6 38.7-80.0 H [facility] TexasLymphocytes (%) (Auto)2018-10-16 14:59:00 * Test Item Value Reference Range Interpretation Comments Lymphocytes (%) (Auto) (test code = 736-9) 5.3 18.0-39.1 L [facility] TexasMonocytes (%) (Auto)2018-10-16 14:59:00* Test Item Value Reference Range Interpretation Comments Monocytes (%) (Auto) (test code = 5905-5) 11.7 4.4-11.3 H [facility] TexasEosinophils (%) (Auto)2018-10-16 14:59:00 * Test Item Value Reference Range Interpretation Comments Eosinophils (%) (Auto) (test code = 713-8) 0.5 0.0-6.0 [facility] TexasBasophils (%) (Auto)2018-10-16 14:59:00* Test Item Value Reference Range Interpretation Comments Basophils (%) (Auto) (test code = 706-2) 0.3 0.0-1.0 [facility] of TexasIM GRANULOCYTES %2018-10-16 14:59:00* Test Item Value Reference Range Interpretation Comments IM GRANULOCYTES % (test code = IM GRANULOCYTES %) 1.6 0.0- 1.0 H [facility] TexasNeutrophils # (Auto)2018-10-16 14:59:00* Test Item Value Reference Range Interpretation Comments Neutrophils # (Auto) (test code = 751-8) 15.0 2.1-6.9 H [facility] TexasLymphocytes # (Auto)2018-10-16 14:59:00* Test Item Value Reference Range Interpretation Comments Lymphocytes # (Auto) (test code = 91371-9) 1.0 1.0-3.2 [facility] TexasMonocytes # (Auto)2018-10-16 14:59:00* Test Item Value Reference Range Interpretation Comments Monocytes # (Auto) (test code = 742-7) 2.2 0.2-0.8 H [facility] TexasEosinophils # (Auto)2018-10-16 14:59:00* Test Item Value Reference Range Interpretation Comments Eosinophils # (Auto) (test code = 711-2) 0.1 0.0-0.4 [facility] TexasBasophils # (Auto)2018-10-16 14:59:00* Test Item Value Reference Range Interpretation Comments Basophils # (Auto) (test code = 704-7) 0.1 0.0-0.1 [facility] of TexasAbsolute Immature Granulocyte (auto 2018-10-16 14:59:00* Test Item Value Reference Range Interpretation Comments Absolute Immature Granulocyte (auto (doug t code = Absolute Immature Granulocyte (auto) 0.30 0-0.1 H [facility] TexasAFB CULTURE + [id number] 07:33:00* Test Item Value Reference Range Interpretation Comments CULTURE (BEAKER) (test code = 1095) No acid-fast bacilli isolate d in 42 days AFB SMEAR (BEAKER) (test code = 994) No acid fast bacilli seen FUNGUS CULTURE + ZPBVF7544-85-72 17:11:00* Test Item Value Reference Range Interpretation Comments CULTURE (BEAKER) (test code = 1095) No fungus isolated in 28 days FUNGUS SMEAR (BEAKER) (test code = 1406) No fungi seen CREATINE KINASE (CK)2018-07-09 05:38:00* Test Item Value Reference Range Interpretation Comments CREATINE KINASE TOTAL (BEAKER) (test code = 380) 17 U/L 29-20 0 L JVBLMTDKJ4368-33-78 05:37:00* Test Item Value Reference Range Interpretation Comments MAGNESIUM (BEAKER) (test code = 627) 1.6 mg/dL 1.6-2.6 BASIC METABOLIC KZPSG6102-32-29 05:37:00* Test Item Value Reference Range Interpretation [...] FOR DIALYSIS PATIENTS. Specimen moderately ictericHEPATIC FUNCTION ATXUM4719-12-50 05:37:00* Test Item Value Reference Range Interpretation [...] 347) 83 U/L 6-55 H Specimen moderately mnpjgvnWBDF2155-39-27 05:32:00* Test Item Value Reference Range Interpretation Comments PARTIAL THROMBOPLASTIN TIME (BEAKER) (test code = 760) 45.3 seconds 22.5-36.0 H PROTHROMBIN TIME/[id number] 05:31:00* Test Item Value Reference Range Interpretation [...] mechanical heart valves.CBC W/PLT COUNT & AUTO BAYONMSLBEOK6092-64-41 05:08:00* Test Item Value Reference Range Interpretation [...] code = 2801) 1 % 0-1 POCT-GLUCOSE [id number] 22:05:00* Test Item Value Reference Range Interpretation Comments POC-GLUCOSE METER (BEAKER) (test code = 1538) 168 mg/dL 70-110 H TESTED AT [place] [id number] [facility] [address] [place], ESOPH, SWALLOW FUNCTION, WITH CINE OR [id number] 10:04:00Reason for exam:->evaluate swallow safety after prolonged [...] Fluoroscopy time: 1.25 minutes. One image. Signed: Anderw Sloan MDReport Verified Date/Time: 07/08/2018 10:04:01 Reading Location: [address] Reading Room [id number] 06:21:00* Test Item Value Reference Range Interpretation Comments MAGNESIUM (BEAKER) (test code = 627) 1.7 mg/dL 1.6-2.6 BASIC METABOLIC [id number] 06:21:00* Test Item Value Reference Range Interpretation [...] FOR DIALYSIS PATIENTS. Specimen moderately ictericHEPATIC FUNCTION NUHYI2855-25-77 06:21:00* Test Item Value Reference Range Interpretation [...] Specimen moderately ictericCBC W/PLT COUNT & AUTO LBYGKMKKXYZG2273-10-52 06:09:00* Test Item Value Reference Range Interpretation [...] (test code = 2801) 1 % 0-1 [id number] 05:49:00* Test Item Value Reference Range Interpretation Comments PARTIAL THROMBOPLASTIN TIME (BEAKER) (test code = 760) 45.0 seconds 22.5-36.0 H PROTHROMBIN TIME/[id number] 05:48:00* Test Item Value Reference Range Interpretation Comments PROTIME (BEAKER) (test code = 759) 15.7 seconds 11.7-14.7 H INR (BEAKER) (test code = 370) 1.3 <=5.9 RECOMMENDED COUMADIN/WARFARIN INR THERAPY RANGESSTANDARD DOSE: 2.0 - 3.0 Inclu herb: PROPHYLAXIS for venous thrombosis, systemic embolization; TREATMENT for giulia ous thrombosis and/or pulmonary embolus.HIGH RISK: Target INR is 2.5-3.5 for pat ients with mechanical heart valves.POCT-GLUCOSE [id number] 05:45:00* Test Item Value Reference Range Interpretation Comments POC-GLUCOSE METER (BEAKER) (test code = 1538) 104 mg/dL 70-110 TESTED AT [address] [address] POCT-GLUCOSE [id number] 00:02:00* Test Item Value Reference Range Interpretation Comments POC-GLUCOSE METER (BEAKER) (test code = 1538) 102 mg/dL 70-110 TESTED AT [address] [address] POCT-GLUCOSE [id number] 18:01:00* Test Item Value Reference Range Interpretation Comments POC-GLUCOSE METER (BEAKER) (test code = 1538) 91 mg/dL 70-110 TESTED AT [address] [address] POCT-GLUCOSE [id number] 12:34:00* Test Item Value Reference Range Interpretation Comments POC-GLUCOSE METER (BEAKER) (test code = 1538) 94 mg/dL 70-110 TESTED AT [address] [address] POCT-GLUCOSE [id number] 06:22:00* Test Item Value Reference Range Interpretation Comments POC-GLUCOSE METER (BEAKER) (test code = 1538) 111 mg/dL 70-110 H TESTED AT [address] [address] [id number] 06:14:00* Test Item Value Reference Range Interpretation Comments MAGNESIUM (BEAKER) (test code = 627) 1.8 mg/dL 1.6-2.6 BASIC METABOLIC [id number] 06:14:00* Test Item Value Reference Range Interpretation [...] FOR DIALYSIS PATIENTS. Specimen moderately ictericHEPATIC FUNCTION [id number] 06:14:00* Test Item Value Reference Range Interpretation [...] 347) 93 U/L 6-55 H Specimen moderately kzjgtgqDCRD7751-85-75 05:42:00* Test Item Value Reference Range Interpretation Comments PARTIAL THROMBOPLASTIN TIME (BEAKER) (test code = 760) 43.0 seconds 22.5-36.0 H PROTHROMBIN TIME/[id number] 05:41:00* Test Item Value Reference Range Interpretation [...] mechanical heart valves.CBC W/PLT COUNT & AUTO IUAUABCGQVRY2905-26-73 05:30:00* Test Item Value Reference Range Interpretation [...] code = 2801) 1 % 0-1 POCT-GLUCOSE [id number] 00:27:00* Test Item Value Reference Range Interpretation Comments POC-GLUCOSE METER (BEAKER) (test code = 1538) 110 mg/dL 70-110 TESTED AT [address] [address] POCT-GLUCOSE [id number] 17:58:00* Test Item Value Reference Range Interpretation Comments POC-GLUCOSE METER (BEAKER) (test code = 1538) 165 mg/dL 70-110 H TESTED AT [address] [address] POCT-GLUCOSE [id number] 12:01:00* Test Item Value Reference Range Interpretation Comments POC-GLUCOSE METER (BEAKER) (test code = 1538) 138 mg/dL 70-110 H TESTED AT [address] [address] [id number] 07:32:00* Test Item Value Reference Range Interpretation Comments PARTIAL THROMBOPLASTIN TIME (BEAKER) (test code = 760) 43.2 seconds 22.5-36.0 H PROTHROMBIN TIME/[id number] 07:31:00* Test Item Value Reference Range Interpretation Comments PROTIME (BEAKER) (test code = 759) 15.1 seconds 11.7-14.7 H INR (BEAKER) (test code = 370) 1.3 <=5.9 RECOMMENDED COUMADIN/WARFARIN INR THERAPY RANGESSTANDARD DOSE: 2.0 - 3.0 Inclu herb: PROPHYLAXIS for venous thrombosis, systemic embolization; TREATMENT for giulia ous thrombosis and/or pulmonary embolus.HIGH RISK: Target INR is 2.5-3.5 for pat ients with mechanical heart valves.[id number] 06:50:00* Test Item Value Reference Range Interpretation Comments MAGNESIUM (BEAKER) (test code = 627) 1.5 mg/dL 1.6-2.6 L BASIC METABOLIC [id number] 06:50:00* Test Item Value Reference Range Interpretation [...] FOR DIALYSIS PATIENTS. Specimen moderately ictericHEPATIC FUNCTION [id number] 06:50:00* Test Item Value Reference Range Interpretation [...] Specimen moderately ictericCBC W/PLT COUNT & AUTO [id number] 06:49:00* Test Item Value Reference Range Interpretation [...] code = 2801) 1 % 0-1 POCT-GLUCOSE [id number] 06:06:00* Test Item Value Reference Range Interpretation Comments POC-GLUCOSE METER (BEAKER) (test code = 1538) 165 mg/dL 70-110 H TESTED AT [address] [address] POCT-GLUCOSE [id number] 00:15:00* Test Item Value Reference Range Interpretation Comments POC-GLUCOSE METER (BEAKER) (test code = 1538) 132 mg/dL 70-110 H TESTED AT [address] [address] POCT-GLUCOSE [id number] 21:55:00* Test Item Value Reference Range Interpretation Comments POC-GLUCOSE METER (BEAKER) (test code = 1538) 161 mg/dL 70-110 H TESTED AT [address] [address] POCT-GLUCOSE [id number] 17:57:00* Test Item Value Reference Range Interpretation Comments POC-GLUCOSE METER (BEAKER) (test code = 1538) 136 mg/dL 70-110 H TESTED AT [address] [address] TISSUE [id number] 16:12:00Surgical Pathology Report Case: [id number] Authorizing Provider: Neptali Kolb, Collected: 07/04/2018 0827 Ordering Location: [address] Received: 07/04/2018 1313 Pathologist: Be Arenas MD Specimen: Cecum, R/O lymphoma PART A CECAL BIOPSY:GRANULATION TISSUE.NO EVIDENCE OF LYMPHOMA OR CARCINOMA..IMMUNOSTAINS FOR CMV, HSV1, HSV2 ARE NEGATIVE.SPECIAL STAINS FOR FUNGAL ORGANISMS (GMS, PAS) ARE NEGATIVE.SEE DIAGNOSTIC COMMENT. Signing Pathologist Direct Phone Line: [phone] signed by Be Arenas MD on 07/05/2018 [...] the sampled material may not be fully business services 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 The prominent B cell population identified in the prior study ([id number]) is not identified in the current study. If there is a strong clinical concern for a malignant process, additional tissue based studies are recommended as the sampled material may not be fully business services 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 [address], [address], [address]U3, 95423H0Rowpv ulcer lower GI bleeding, rule out lymphomaCecum Received in formalin labeled as "cecum, rule out lymphoma" are multiple more than five red-guajardo tissue fragments ranging from 0.1 to 0.4 cm. The specimen is submitted in toto in one cassette. [place]/plperformedThe interpretation of this case included the use of immunohistochemistry or special stains.BLOCK A1- GMS, PAS, HSV1, HSV2, CD20, PAX5, CD3, JU0Gvpdwla Slides Exa mined: In-house known positive controls were evaluated along with the test tiss ue. These control slides run alongside of the patients sample show appropriate staining. Internal positive and negative controls when available are evaluated I mmunohistochemistry technical testing was performed at [facility] Pathology Laboratory where it was developed and [...] of 1988 (CLIA-88) as qualified to perfo rm high complexity clinical laboratory testing.POCT-GLUCOSE [id number] 12:01:00* Test Item Value Reference Range Interpretation Comments POC-GLUCOSE METER (BEAKER) (test code = 1538) 157 mg/dL 70-110 H TESTED AT [address] [address] CBC W/PLT COUNT & AUTO [id number] 07:05:00* Test Item Value Reference Range Interpretation [...] Received comment: User comments: Slide comments: POCT-GLUCOSE [id number] 06:09:00* Test Item Value Reference Range Interpretation Comments POC-GLUCOSE METER (BEAKER) (test code = 1538) 148 mg/dL 70-110 H TESTED AT [facility] [address] [facility] [address] [id number] 05:03:00* Test Item Value Reference Range Interpretation Comments MAGNESIUM (BEAKER) (test code = 627) 1.7 mg/dL 1.6-2.6 BASIC METABOLIC [id number] 05:03:00* Test Item Value Reference Range Interpretation [...] FOR DIALYSIS PATIENTS. Specimen moderately ictericHEPATIC FUNCTION [id number] 05:03:00* Test Item Value Reference Range Interpretation [...] 347) 112 U/L 6-55 H Specimen moderately [id number] 04:56:00* Test Item Value Reference Range Interpretation Comments PARTIAL THROMBOPLASTIN TIME (BEAKER) (test code = 760) 49.3 seconds 22.5-36.0 H PROTHROMBIN TIME/[id number] 04:55:00* Test Item Value Reference Range Interpretation Comments PROTIME (BEAKER) (test code = 759) 16.0 seconds 11.7-14.7 H INR (BEAKER) (test code = 370) 1.4 <=5.9 RECOMMENDED COUMADIN/WARFARIN INR THERAPY RANGESSTANDARD DOSE: 2.0 - 3.0 Inclu herb: PROPHYLAXIS for venous thrombosis, systemic embolization; TREATMENT for giulia ous thrombosis and/or pulmonary embolus.HIGH RISK: Target INR is 2.5-3.5 for pat ients with mechanical heart valves.POCT-GLUCOSE [id number] 00:01:00* Test Item Value Reference Range Interpretation Comments POC-GLUCOSE METER (BEAKER) (test code = 1538) 144 mg/dL 70-110 H TESTED AT [facility] [address] [facility] [address] POCT-GLUCOSE [id number] 18:04:00* Test Item Value Reference Range Interpretation Comments POC-GLUCOSE METER (BEAKER) (test code = 1538) 113 mg/dL 70-110 H TESTED AT [address] [address] POCT-GLUCOSE [id number] 11:48:00* Test Item Value Reference Range Interpretation Comments POC-GLUCOSE METER (BEAKER) (test code = 1538) 92 mg/dL 70-110 TESTED AT [address] [address] CBC W/PLT COUNT & AUTO [id number] 10:15:00* Test Item Value Reference Range Interpretation [...] Received comment: User comments: Slide comments: POCT-GLUCOSE [id number] 06:36:00* Test Item Value Reference Range Interpretation Comments POC-GLUCOSE METER (BEAKER) (test code = 1538) 107 mg/dL 70-110 TESTED AT [facility] [address] [facility] [address] [id number] 05:42:00* Test Item Value Reference Range Interpretation Comments MAGNESIUM (BEAKER) (test code = 627) 1.9 mg/dL 1.6-2.6 Specimen slightly hemolyzed BASIC METABOLIC [id number] 05:42:00* Test Item Value Reference Range Interpretation [...] FOR DIALYSIS PATIENTS. Specimen moderately ictericHEPATIC FUNCTION [id number] 05:42:00* Test Item Value Reference Range Interpretation [...] 6-55 H Specimen slightly hemolyzed Specimen moderately [id number] 05:35:00* Test Item Value Reference Range Interpretation Comments PARTIAL THROMBOPLASTIN TIME (BEAKER) (test code = 760) 40.6 seconds 22.5-36.0 H PROTHROMBIN TIME/[id number] 05:34:00* Test Item Value Reference Range Interpretation Comments PROTIME (BEAKER) (test code = 759) 16.0 seconds 11.7-14.7 H INR (BEAKER) (test code = 370) 1.3 <=5.9 RECOMMENDED COUMADIN/WARFARIN INR THERAPY RANGESSTANDARD DOSE: 2.0 - 3.0 Inclu herb: PROPHYLAXIS for venous thrombosis, systemic embolization; TREATMENT for giulia ous thrombosis and/or pulmonary embolus.HIGH RISK: Target INR is 2.5-3.5 for pat ients with mechanical heart valves.POCT-GLUCOSE [id number] 00:32:00* Test Item Value Reference Range Interpretation Comments POC-GLUCOSE METER (BEAKER) (test code = 1538) 106 mg/dL 70-110 TESTED AT [address] [address] RAD, CHEST, 1 VIEW, NON [id number] 18:48:00Reason for exam:->SOBShould this be performed at [...] Garcia Verified Date/Time: 07/03/2018 18:48:11 Reading Location: [address] Consult Reading Room -GLUCOSE [id number] 17:36:00* Test Item Value Reference Range Interpretation Comments POC-GLUCOSE METER (BEAKER) (test code = 1538) 130 mg/dL 70-110 H TESTED AT [address] [address] HEMOGLOBIN AND [id number] 14:44:00* Test Item Value Reference Range Interpretation Comments HEMOGLOBIN (BEAKER) (test code = 410) 8.1 GM/DL 13.7-17.5 L HEMATOCRIT (BEAKER) (test code = 411) 25.8 % 40.1-51.0 L CBC W/PLT COUNT & AUTO [id number] 12:53:00* Test Item Value Reference Range Interpretation [...] MDReport Verified Date/Time: 07/03/2018 07:23:40 Reading Location: [facility] Radiology Reading Room -GLUCOSE [id number] 06:01:00* Test Item Value Reference Range Interpretation Comments POC-GLUCOSE METER (BEAKER) (test code = 1538) 203 mg/dL 70-110 H TESTED AT [facility] [address] [facility] [address] [id number] 05:39:00* Test Item Value Reference Range Interpretation Comments MAGNESIUM (BEAKER) (test code = 627) 1.7 mg/dL 1.6-2.6 BASIC METABOLIC [id number] 05:39:00* Test Item Value Reference Range Interpretation [...] FOR DIALYSIS PATIENTS. Specimen moderately ictericHEPATIC FUNCTION [id number] 05:39:00* Test Item Value Reference Range Interpretation [...] 347) 125 U/L 6-55 H Specimen moderately [id number] 05:10:00* Test Item Value Reference Range Interpretation Comments PARTIAL THROMBOPLASTIN TIME (BEAKER) (test code = 760) 41.9 seconds 22.5-36.0 H PROTHROMBIN TIME/[id number] 05:09:00* Test Item Value Reference Range Interpretation [...] pat ients with mechanical heart valves.HEMOGLOBIN AND [id number] 00:58:00 * Test Item Value Reference Range Interpretation Comments HEMOGLOBIN (BEAKER) (test code = 410) 8.3 GM/DL 13.7-17.5 L HEMATOCRIT (BEAKER) (test code = 411) 26.1 % 40.1-51.0 L POCT-GLUCOSE [id number] 23:25:00* Test Item Value Reference Range Interpretation Comments POC-GLUCOSE METER (BEAKER) (test code = 1538) 179 mg/dL 70-110 H TESTED AT [facility] [address] [facility] [address] POCT-GLUCOSE [id number] 18:01:00* Test Item Value Reference Range Interpretation Comments POC-GLUCOSE METER (BEAKER) (test code = 1538) 175 mg/dL 70-110 H TESTED AT [place] [address] [facility] [address] HEMOGLOBIN AND [id number] 17:25:00* Test Item Value Reference Range Interpretation Comments HEMOGLOBIN (BEAKER) (test code = 410) 7.9 GM/DL 13.7-17.5 L HEMATOCRIT (BEAKER) (test code = 411) 24.0 % 40.1-51.0 L CBC W/PLT COUNT & AUTO [id number] 13:26:00* Test Item Value Reference Range Interpretation [...] Received comment: User comments: Slide comments: POCT-GLUCOSE [id number] 11:58:00* Test Item Value Reference Range Interpretation Comments POC-GLUCOSE METER (BEAKER) (test code = 1538) 148 mg/dL 70-110 H TESTED AT [facility] [address] [facility] [address] RAD, CHEST, 1 VIEW, NON [id number] 07:41:00Reason for exam:->Pulmonary edema evaluationShould this be performed at the bedside?->YesFINAL REPORT Portable chest. CLINICAL HISTORY: Pulmonary edema evaluation. COMPARISON STUDY: Chest x-ray from yesterday. FINDINGS: The cardiac silhouette is enlarged. The pulmonary parenchyma demonstrate mild interstitial and patchy airspace opacities. The support lines and tubes are unchanged. No pneumothorax is seen. Degenerative changes are noted. IMPRESSION: No significant change. Signed: Andrew Sloan Verified Date/Time: 07/02/2018 07:41:39 Reading Location: [facility] Radiology Reading Room [id number] 07:01:00* Test Item Value Reference Range Interpretation Comments PARTIAL THROMBOPLASTIN TIME (BEAKER) (test code = 760) 46.2 seconds 22.5-36.0 H PROTHROMBIN TIME/[id number] 06:59:00* Test Item Value Reference Range Interpretation [...] pat ients with mechanical heart valves.HEMOGLOBIN AND [id number] 06:48:00 * Test Item Value Reference Range Interpretation Comments HEMOGLOBIN (BEAKER) (test code = 410) 7.9 GM/DL 13.7-17.5 L HEMATOCRIT (BEAKER) (test code = 411) 25.0 % 40.1-51.0 L POCT-GLUCOSE [id number] 06:17:00* Test Item Value Reference Range Interpretation Comments POC-GLUCOSE METER (BEAKER) (test code = 1538) 170 mg/dL 70-110 H TESTED AT [facility] [address] [facility] [address] CREATINE KINASE (CK)2018-07-02 03:50:00* Test Item Value Reference Range Interpretation Comments CREATINE KINASE TOTAL (BEAKER) (test code = 380) 17 U/L 29-20 0 L [id number] 03:44:00* Test Item Value Reference Range Interpretation Comments MAGNESIUM (BEAKER) (test code = 627) 1.9 mg/dL 1.6-2.6 Specimen slightly hemolyzed BASIC METABOLIC [id number] 03:44:00* Test Item Value Reference Range Interpretation [...] FOR DIALYSIS PATIENTS. Specimen moderately ictericHEPATIC FUNCTION [id number] 03:44:00* Test Item Value Reference Range Interpretation [...] Specimen slightly hemolyzed Specimen moderately ictericHEMOGLOBIN AND [id number] 03:08:00* Test Item Value Reference Range Interpretation Comments HEMOGLOBIN (BEAKER) (test code = 410) 7.9 GM/DL 13.7-17.5 L HEMATOCRIT (BEAKER) (test code = 411) 24.8 % 40.1-51.0 L POCT-GLUCOSE [id number] 23:24:00* Test Item Value Reference Range Interpretation Comments POC-GLUCOSE METER (BEAKER) (test code = 1538) 155 mg/dL 70-110 H TESTED AT [address] [address] HEMOGLOBIN AND [id number] 18:35:00* Test Item Value Reference Range Interpretation Comments HEMOGLOBIN (BEAKER) (test code = 410) 7.9 GM/DL 13.7-17.5 L HEMATOCRIT (BEAKER) (test code = 411) 24.1 % 40.1-51.0 L POCT-GLUCOSE [id number] 17:49:00* Test Item Value Reference Range Interpretation Comments POC-GLUCOSE METER (BEAKER) (test code = 1538) 148 mg/dL 70-110 H TESTED AT [address] [address] POCT-GLUCOSE [id number] 11:44:00* Test Item Value Reference Range Interpretation Comments POC-GLUCOSE METER (BEAKER) (test code = 1538) 151 mg/dL 70-110 H TESTED AT [address] [address] HEMOGLOBIN AND [id number] 10:59:00* Test Item Value Reference Range Interpretation Comments HEMOGLOBIN (BEAKER) (test code = 410) 8.0 GM/DL 13.7-17.5 L HEMATOCRIT (BEAKER) (test code = 411) 24.0 % 40.1-51.0 L RAD, CHEST, 1 VIEW, NON [id number] 08:47:00Reason for exam:->Pulmonary edema evaluationShould this be performed at the bedside?->YesFINAL REPORT Chest, one view HISTORY: Pulmonary edema evaluation Comparison: 06/30/2018 Findings: Lungs: Stable bilateral airspace disease. Heart: Mild prominence of the cardiac silhouette, unchanged from prior study. Pleura: No pleural effusion or pneumothorax. Bones: Unremarkable. Lines/tubes: Unchanged in position. IMPRESSION: No significant interval change. Signed: Alonzo Valenzuela MDReport Verified Date/Time: 07/01/2018 08:47:41 Reading Location: [facility] Diagnostic Imaging Reading Room - [place] [address] -GLUCOSE [id number] 06:47:00 * Test Item Value Reference Range Interpretation Comments POC-GLUCOSE METER (BEAKER) (test code = 1538) 153 mg/dL 70-110 H TESTED AT [facility] [address] [facility] [address] [id number] 04:06:00* Test Item Value Reference Range Interpretation Comments MAGNESIUM (BEAKER) (test code = 627) 1.9 mg/dL 1.6-2.6 BASIC METABOLIC [id number] 04:06:00* Test Item Value Reference Range Interpretation [...] FOR DIALYSIS PATIENTS. Specimen moderately ictericHEPATIC FUNCTION [id number] 04:06:00* Test Item Value Reference Range Interpretation [...] 347) 145 U/L 6-55 H Specimen moderately [id number] 03:50:00* Test Item Value Reference Range Interpretation Comments PARTIAL THROMBOPLASTIN TIME (BEAKER) (test code = 760) 46.8 seconds 22.5-36.0 H PROTHROMBIN TIME/[id number] 03:49:00* Test Item Value Reference Range Interpretation [...] mechanical heart valves.CBC W/PLT COUNT & AUTO [id number] 03:32:00* Test Item Value Reference Range Interpretation [...] 2801) 2 % 0-1 H HEMOGLOBIN AND [id number] 03:20:00* Test Item Value Reference Range Interpretation Comments HEMOGLOBIN (BEAKER) (test code = 410) 7.7 GM/DL 13.7-17.5 L HEMATOCRIT (BEAKER) (test code = 411) 24.3 % 40.1-51.0 L POCT-GLUCOSE [id number] 23:51:00* Test Item Value Reference Range Interpretation Comments POC-GLUCOSE METER (BEAKER) (test code = 1538) 146 mg/dL 70-110 H TESTED AT [facility] [address] [facility] [address] POCT-GLUCOSE [id number] 17:40:00* Test Item Value Reference Range Interpretation Comments POC-GLUCOSE METER (BEAKER) (test code = 1538) 194 mg/dL 70-110 H TESTED AT [facility] [address] [facility] [address] HEMOGLOBIN AND [id number] 17:33:00* Test Item Value Reference Range Interpretation Comments HEMOGLOBIN (BEAKER) (test code = 410) 7.9 GM/DL 13.7-17.5 L HEMATOCRIT (BEAKER) (test code = 411) 24.6 % 40.1-51.0 L CBC W/PLT COUNT & AUTO [id number] 15:29:00* Test Item Value Reference Range Interpretation [...] Received comment: User comments: Slide comments: POCT-GLUCOSE [id number] 11:51:00* Test Item Value Reference Range Interpretation Comments POC-GLUCOSE METER (BEAKER) (test code = 1538) 191 mg/dL 70-110 H TESTED AT [facility] [address] [facility] [address] HEMOGLOBIN AND [id number] 09:19:00* Test Item Value Reference Range Interpretation Comments HEMOGLOBIN (BEAKER) (test code = 410) 7.8 GM/DL 13.7-17.5 L HEMATOCRIT (BEAKER) (test code = 411) 24.1 % 40.1-51.0 L RAD, CHEST, 1 VIEW, NON [id number] 08:34:00Reason for exam:->Pulmonary edema evaluationShould this be [...] MDReport Verified Date/Time: 06/30/2018 08:34:20 Reading Location: [facility] B1 C013W Consult Reading Room ESIUM 2018-06-30 07:03:00* Test Item Value Reference Range Interpretation Comments MAGNESIUM (BEAKER) (test code = 627) 2.1 mg/dL 1.6-2.6 BASIC METABOLIC [id number] 07:03:00* Test Item Value Reference Range Interpretation [...] FOR DIALYSIS PATIENTS. Specimen moderately ictericHEPATIC FUNCTION [id number] 07:03:00* Test Item Value Reference Range Interpretation [...] 162 U/L 6-55 H Specimen moderately ictericPOCT-GLUCOSE [id number] 06:08:00* Test Item Value Reference Range Interpretation Comments POC-GLUCOSE METER (BEAKER) (test code = 1538) 127 mg/dL 70-110 H TESTED AT [facility] [address] [facility] [address] [id number] 06:06:00* Test Item Value Reference Range Interpretation Comments PARTIAL THROMBOPLASTIN TIME (BEAKER) (test code = 760) 27.4 seconds 22.5-36.0 PROTHROMBIN TIME/[id number] 06:05:00* Test Item Value Reference Range Interpretation [...] pat ients with mechanical heart valves.HEMOGLOBIN AND [id number] 00:04:00 * Test Item Value Reference Range Interpretation Comments HEMOGLOBIN (BEAKER) (test code = 410) 8.3 GM/DL 13.7-17.5 L HEMATOCRIT (BEAKER) (test code = 411) 25.4 % 40.1-51.0 L POCT-GLUCOSE [id number] 00:02:00* Test Item Value Reference Range Interpretation Comments POC-GLUCOSE METER (BEAKER) (test code = 1538) 140 mg/dL 70-110 H TESTED AT [facility] [address] [facility] [address] POCT-GLUCOSE [id number] 17:41:00* Test Item Value Reference Range Interpretation Comments POC-GLUCOSE METER (BEAKER) (test code = 1538) 155 mg/dL 70-110 H TESTED AT [facility] [address] [facility] [address] HEMOGLOBIN AND [id number] 16:00:00* Test Item Value Reference Range Interpretation Comments HEMOGLOBIN (BEAKER) (test code = 410) 8.2 GM/DL 13.7-17.5 L HEMATOCRIT (BEAKER) (test code = 411) 25.5 % 40.1-51.0 L BLOOD GAS, [id number] 15:50:00* Test Item Value Reference Range Interpretation [...] 30.0 % RAD, CHEST, 1 VIEW, NON [id number] 14:58:00Reason for exam:->Pulmonary edema evaluationShould this be performed at the bedside?->YesFINAL REPORT AP chest HISTORY: Pulmonary edema. COMPARISON: 06/28/2018. IMPRESSION: Tracheostomy tube and feeding tube present. Hypoinflation. Mild interstitial edema, increased from previous. No effusion or pneumothorax. Signed: Eric Andrade MDReport Verified Date/Time: 06/29/2018 14:58:10 Reading Location: [address] Transitional Reading Room W/PLT COUNT & AUTO DIFFERENTIAL [...] Received comment: User comments: Slide comments: POCT-GLUCOSE [id number] 12:20:00* Test Item Value Reference Range Interpretation Comments POC-GLUCOSE METER (BEAKER) (test code = 1538) 154 mg/dL 70-110 H TESTED AT [facility] [address] [facility] [address] [id number] 06:44:00* Test Item Value Reference Range Interpretation Comments PARTIAL THROMBOPLASTIN TIME (BEAKER) (test code = 760) 40.7 seconds 22.5-36.0 H PROTHROMBIN TIME/[id number] 06:43:00* Test Item Value Reference Range Interpretation Comments PROTIME (BEAKER) (test code = 759) 16.8 seconds 11.7-14.7 H INR (BEAKER) (test code = 370) 1.4 <=5.9 RECOMMENDED COUMADIN/WARFARIN INR THERAPY RANGESSTANDARD DOSE: 2.0 - 3.0 Inclu herb: PROPHYLAXIS for venous thrombosis, systemic embolization; TREATMENT for giulia ous thrombosis and/or pulmonary embolus.HIGH RISK: Target INR is 2.5-3.5 for pat ients with mechanical heart valves.POCT-GLUCOSE [id number] 06:07:00* Test Item Value Reference Range Interpretation Comments POC-GLUCOSE METER (BEAKER) (test code = 1538) 177 mg/dL 70-110 H TESTED AT [facility] [address] [facility] [address] [id number] 04:04:00* Test Item Value Reference Range Interpretation Comments MAGNESIUM (BEAKER) (test code = 627) 2.0 mg/dL 1.6-2.6 Specimen slightly hemolyzed BASIC METABOLIC [id number] 04:04:00* Test Item Value Reference Range Interpretation [...] FOR DIALYSIS PATIENTS. Specimen markedly ictericHEPATIC FUNCTION [id number] 04:04:00* Test Item Value Reference Range Interpretation [...] Specimen slightly hemolyzed Specimen markedly ictericHEMOGLOBIN AND [id number] 01:37:00* Test Item Value Reference Range Interpretation Comments HEMOGLOBIN (BEAKER) (test code = 410) 7.7 GM/DL 13.7-17.5 L HEMATOCRIT (BEAKER) (test code = 411) 23.9 % 40.1-51.0 L POCT-GLUCOSE [id number] 00:12:00* Test Item Value Reference Range Interpretation Comments POC-GLUCOSE METER (BEAKER) (test code = 1538) 158 mg/dL 70-110 H TESTED AT [facility] [address] [facility] [address] SODIUM, RANDOM [id number] 20:36:00* Test Item Value Reference Range Interpretation Comments SODIUM URINE (BEAKER) (test code = 243) < meq/L Reference Range: No NormalsPOCT-GLUCOSE [id number] 20:24:00* Test Item Value Reference Range Interpretation Comments POC-GLUCOSE METER (BEAKER) (test code = 1538) 169 mg/dL 70-110 H TESTED AT [place] [id number] [facility] [address] HEMOGLOBIN AND [id number] 20:24:00* Test Item Value Reference Range Interpretation Comments HEMOGLOBIN (BEAKER) (test code = 410) 6.9 GM/DL 13.7-17.5 L HEMATOCRIT (BEAKER) (test code = 411) 21.1 % 40.1-51.0 L HEMOGLOBIN AND [id number] 18:35:00* Test Item Value Reference Range Interpretation Comments HEMOGLOBIN (BEAKER) (test code = 410) 6.7 GM/DL 13.7-17.5 L HEMATOCRIT (BEAKER) (test code = 411) 20.7 % 40.1-51.0 L YARI ANTIGEN WITH REFLEX TO [id number] 18:29:00* Test Item Value Reference Range Interpretation Comments YARI ANTIGEN (BEAKER) (test code = 1782) Positive YARI ANTIGEN [id number] 18:29:00* Test Item Value Reference Range Interpretation Comments YARI ANTIGEN TITER (BEAKER) (test code = 737) :2 POCT-GLUCOSE [id number] 17:43:00* Test Item Value Reference Range Interpretation Comments POC-GLUCOSE METER (BEAKER) (test code = 1538) 108 mg/dL 70-110 TESTED AT [address] [address] POCT-GLUCOSE [id number] 12:27:00* Test Item Value Reference Range Interpretation Comments POC-GLUCOSE METER (BEAKER) (test code = 1538) 152 mg/dL 70-110 H TESTED AT [address] [address] CBC W/PLT COUNT & AUTO [id number] 12:16:00* Test Item Value Reference Range Interpretation [...] 40.1-51.0 L RAD, CHEST, 1 VIEW, NON [id number] 09:28:00Reason for exam:->Pulmonary edema evaluationShould this be [...] IMPRESSION: No significant change. Signed: Andrew Sloan Verified Date/Time: 06/28/2018 09:28:59 Reading Location: [facility] Radiology Reading Room - GLUCOSE [id number] 06:13:00* Test Item Value Reference Range Interpretation Comments POC-GLUCOSE METER (BEAKER) (test code = 1538) 123 mg/dL 70-110 H TESTED AT [address] [address] BASIC METABOLIC [id number] 05:57:00* Test Item Value Reference Range Interpretation [...] NOT APPLICABLE FOR DIALYSIS PATIENTS. Specimen markedly [id number] 05:56:00* Test Item Value Reference Range Interpretation Comments MAGNESIUM (BEAKER) (test code = 627) 2.3 mg/dL 1.6-2.6 HEPATIC FUNCTION [id number] 05:56:00* Test Item Value Reference Range Interpretation [...] 347) 180 U/L 6-55 H Specimen markedly [id number] 05:43:00* Test Item Value Reference Range Interpretation Comments PARTIAL THROMBOPLASTIN TIME (BEAKER) (test code = 760) 45.3 seconds 22.5-36.0 H PROTHROMBIN TIME/[id number] 05:42:00* Test Item Value Reference Range Interpretation Comments PROTIME (BEAKER) (test code = 759) 17.5 seconds 11.7-14.7 H INR (BEAKER) (test code = 370) 1.5 <=5.9 RECOMMENDED COUMADIN/WARFARIN INR THERAPY RANGESSTANDARD DOSE: 2.0 - 3.0 Inclu herb: PROPHYLAXIS for venous thrombosis, systemic embolization; TREATMENT for giulia ous thrombosis and/or pulmonary embolus.HIGH RISK: Target INR is 2.5-3.5 for pat ients with mechanical heart valves.POCT-GLUCOSE [id number] 00:23:00* Test Item Value Reference Range Interpretation Comments POC-GLUCOSE METER (BEAKER) (test code = 1538) 183 mg/dL 70-110 H TESTED AT [facility] [address] [facility] [address] HEMOGLOBIN AND [id number] 20:24:00* Test Item Value Reference Range Interpretation Comments HEMOGLOBIN (BEAKER) (test code = 410) 7.4 GM/DL 13.7-17.5 L HEMATOCRIT (BEAKER) (test code = 411) 22.3 % 40.1-51.0 L POCT-GLUCOSE [id number] 18:08:00* Test Item Value Reference Range Interpretation Comments POC-GLUCOSE METER (BEAKER) (test code = 1538) 171 mg/dL 70-110 H TESTED AT [facility] [address] [facility] [address] TISSUE [id number] 17:16:00Surgical Pathology Report Case: [id number] Authorizing Provider: Seven Tubbs MD Collected: 06/19/2018 1536 Ordering Location: [address] Received: 06/20/2018 0750 Pathologist: Jb Brock MD Specimen: Cecum, Cecal Ulcer Bx COLON, CECUM, ULCER, BIOPSY: - ATYPICAL LYMPHOID PROLIFERATION 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 Samm Arenas, [facility] Hematopathology, who concurs with the diagnosis. [id number] Cecal ulcer biops yThe specimen is received in a formalin-filled container and labeled with the p atient's information and labeled "cecal ulcer biopsy" and consists of a 0.2 cm f ragment of guajardo tissue, submitted entirely A1. CG/pl Performed.The following carlos tional immunohistochemical stains, were evaluated on the biopsy with appropriate controls:CD3, CD5, CD10, CD20, BCL-2, BCL-6, CyclinD1, Ki-67, [place], Lambda, PA X-5.CD3, CD5 and BCL-2 have similar patterns and highlight T lymphocytes. CD20 a nd PAX-5 highlights increased large, atypical appearing B cells. [place] and Santana da demonstrate polytypic plasma cells. CD10 and cyclin D1 are negative in the ly mphoid cells. BCL-6 highlights few scattered large cells. Ki-67 demonstrates an increased proliferation index in the large B lymphocytes. CMV and special stain s for bacterial and fungal organisms (Gram stain, GMS, and AFP) were negative. e interpretation of this case included the use of immunohistochemistry or specia l stains.Special stains: GMS, AFB, GRAM STAIN. CD3, CD20, PAX-5, CD5, CD10, JANETH A, LAMBDA, CYCLIN D1, CMV, BCL-2, BCL-6, KI-67.Immunohistochemistry technical te sting was performed at [facility], Pathology Laboratory wh ere it was developed [...] and its performance c haracteristics determined by [facility], Pathology Laboratory. It has not been cleared [...] as qualified to perform high complexity clinic [place] laboratory testing.[facility], Department of Pathology, [address] [place] [address], [facility], [facility] of Pathology, [address] [place] [address], [facility], [facility], [address] [place] [address], b-TYPE NATRIURETIC FACTOR (BNP) 2018-06-27 13:44:00* Test Item Value Reference Range Interpretation Comments B-TYPE NATRIURETIC PEPTIDE (BEAKER) (test code = 700) 179 pg/mL 0-100 H HEMOGLOBIN AND [id number] 13:18:00* Test Item Value Reference Range Interpretation Comments HEMOGLOBIN (BEAKER) (test code = 410) 7.9 GM/DL 13.7-17.5 L HEMATOCRIT (BEAKER) (test code = 411) 23.6 % 40.1-51.0 L CBC W/PLT COUNT & AUTO [id number] 13:10:00* Test Item Value Reference Range Interpretation [...] No significant interval change. Signed: Roberth Camp Verified Date/Time: 06/27/2018 12:39:10 Reading Location: [facility] Radiology Reading Room -GLUCOSE [id number] 11:38:00 * Test Item Value Reference Range Interpretation Comments POC-GLUCOSE METER (BEAKER) (test code = 1538) 181 mg/dL 70-110 H TESTED AT [place] [id number] HEMOGLOBIN AND [id number] 09:34:00* Test Item Value Reference Range Interpretation Comments HEMOGLOBIN (BEAKER) (test code = 410) 8.1 GM/DL 13.7-17.5 L HEMATOCRIT (BEAKER) (test code = 411) 24.9 % 40.1-51.0 L POCT-GLUCOSE [id number] 06:28:00* Test Item Value Reference Range Interpretation Comments POC-GLUCOSE METER (BEAKER) (test code = 1538) 161 mg/dL 70-110 H TESTED AT [address] [address] BASIC METABOLIC [id number] 06:04:00* Test Item Value Reference Range Interpretation [...] NOT APPLICABLE FOR DIALYSIS PATIENTS. Specimen markedly [id number] 06:00:00* Test Item Value Reference Range Interpretation Comments MAGNESIUM (BEAKER) (test code = 627) 1.9 mg/dL 1.6-2.6 HEPATIC FUNCTION [id number] 06:00:00* Test Item Value Reference Range Interpretation [...] 347) 170 U/L 6-55 H Specimen markedly [id number] 05:56:00* Test Item Value Reference Range Interpretation Comments PARTIAL THROMBOPLASTIN TIME (BEAKER) (test code = 760) 41.4 seconds 22.5-36.0 H PROTHROMBIN TIME/[id number] 05:55:00* Test Item Value Reference Range Interpretation [...] pat ients with mechanical heart valves.HEMOGLOBIN AND [id number] 05:33:00 * Test Item Value Reference Range Interpretation Comments HEMOGLOBIN (BEAKER) (test code = 410) 7.5 GM/DL 13.7-17.5 L HEMATOCRIT (BEAKER) (test code = 411) 23.3 % 40.1-51.0 L POCT-GLUCOSE [id number] 00:28:00* Test Item Value Reference Range Interpretation Comments POC-GLUCOSE METER (BEAKER) (test code = 1538) 153 mg/dL 70-110 H TESTED AT [address] [id number] HEMOGLOBIN AND [id number] 00:15:00* Test Item Value Reference Range Interpretation Comments HEMOGLOBIN (BEAKER) (test code = 410) 6.8 GM/DL 13.7-17.5 L HEMATOCRIT (BEAKER) (test code = 411) 20.6 % 40.1-51.0 L HEMOGLOBIN AND [id number] 20:31:00* Test Item Value Reference Range Interpretation Comments HEMOGLOBIN (BEAKER) (test code = 410) 7.4 GM/DL 13.7-17.5 L HEMATOCRIT (BEAKER) (test code = 411) 22.5 % 40.1-51.0 L HEMOGLOBIN AND [id number] 18:54:00* Test Item Value Reference Range Interpretation Comments HEMOGLOBIN (BEAKER) (test code = 410) 7.4 GM/DL 13.7-17.5 L HEMATOCRIT (BEAKER) (test code = 411) 22.7 % 40.1-51.0 L POCT-GLUCOSE [id number] 18:17:00* Test Item Value Reference Range Interpretation Comments POC-GLUCOSE METER (BEAKER) (test code = 1538) 133 mg/dL 70-110 H TESTED AT [facility] [address] [facility] [address] [id number] 16:32:00* Test Item Value Reference Range Interpretation Comments FIBRINOGEN LEVEL (BEAKER) (test code = 658) 331 mg/dl 225-434 PT/[id number] 15:10:00* Test Item Value Reference Range Interpretation [...] pat ients with mechanical heart valves.HEMOGLOBIN AND [id number] 14:55:00 * Test Item Value Reference Range Interpretation Comments HEMOGLOBIN (BEAKER) (test code = 410) 7.7 GM/DL 13.7-17.5 L HEMATOCRIT (BEAKER) (test code = 411) 24.0 % 40.1-51.0 L CBC W/PLT COUNT & AUTO [id number] 14:09:00* Test Item Value Reference Range Interpretation [...] Received comment: User comments: Slide comments: BLOOD [id number] 14:03:00* Test Item Value Reference Range Interpretation Comments CULTURE (BEAKER) (test code = 1095) No growth in 5 days BLOOD [id number] 14:03:00* Test Item Value Reference Range Interpretation Comments CULTURE (BEAKER) (test code = 1095) No growth in 5 days POCT-GLUCOSE [id number] 11:51:00* Test Item Value Reference Range Interpretation Comments POC-GLUCOSE METER (BEAKER) (test code = 1538) 176 mg/dL 70-110 H TESTED AT [facility] [address] [facility] [address] HEMOGLOBIN AND [id number] 08:23:00* Test Item Value Reference Range Interpretation Comments HEMOGLOBIN (BEAKER) (test code = 410) 6.2 GM/DL 13.7-17.5 L HEMATOCRIT (BEAKER) (test code = 411) 18.9 % 40.1-51.0 L POCT-GLUCOSE [id number] 07:35:00* Test Item Value Reference Range Interpretation Comments POC-GLUCOSE METER (BEAKER) (test code = 1538) 172 mg/dL 70-110 H TESTED AT [place] [id number] [facility] [address] RAD, CHEST, 1 VIEW, NON [id number] 07:26:00Reason for exam:->Pulmonary edema evaluationShould this be [...] osseous abnormalities are identified. Signed: Rafal Madrigal MDReport Verified Date/Time: 06/26/2018 07:26:15 Reading Location: [facility] Radiology Reading Room [id number] 05:04:00* Test Item Value Reference Range Interpretation Comments MAGNESIUM (BEAKER) (test code = 627) 1.9 mg/dL 1.6-2.6 BASIC METABOLIC [id number] 05:04:00* Test Item Value Reference Range Interpretation [...] FOR DIALYSIS PATIENTS. Specimen markedly ictericHEPATIC FUNCTION [id number] 05:04:00* Test Item Value Reference Range Interpretation [...] 347) 202 U/L 6-55 H Specimen markedly [id number] 04:54:00* Test Item Value Reference Range Interpretation Comments PARTIAL THROMBOPLASTIN TIME (BEAKER) (test code = 760) 39.3 seconds 22.5-36.0 H PROTHROMBIN TIME/[id number] 04:53:00* Test Item Value Reference Range Interpretation [...] pat ients with mechanical heart valves.HEMOGLOBIN AND [id number] 04:48:00 * Test Item Value Reference Range Interpretation Comments HEMOGLOBIN (BEAKER) (test code = 410) 7.2 GM/DL 13.7-17.5 L HEMATOCRIT (BEAKER) (test code = 411) 22.4 % 40.1-51.0 L HEMOGLOBIN AND [id number] 00:55:00* Test Item Value Reference Range Interpretation Comments HEMOGLOBIN (BEAKER) (test code = 410) 7.9 GM/DL 13.7-17.5 L HEMATOCRIT (BEAKER) (test code = 411) 24.4 % 40.1-51.0 L POCT-GLUCOSE [id number] 00:11:00* Test Item Value Reference Range Interpretation Comments POC-GLUCOSE METER (BEAKER) (test code = 1538) 130 mg/dL 70-110 H TESTED AT [place] [id number] HEMOGLOBIN AND [id number] 21:55:00* Test Item Value Reference Range Interpretation Comments HEMOGLOBIN (BEAKER) (test code = 410) 7.8 GM/DL 13.7-17.5 L HEMATOCRIT (BEAKER) (test code = 411) 24.7 % 40.1-51.0 L HEMOGLOBIN AND [id number] 19:15:00* Test Item Value Reference Range Interpretation Comments HEMOGLOBIN (BEAKER) (test code = 410) 8.2 GM/DL 13.7-17.5 L HEMATOCRIT (BEAKER) (test code = 411) 25.5 % 40.1-51.0 L POCT-GLUCOSE [id number] 18:49:00* Test Item Value Reference Range Interpretation Comments POC-GLUCOSE METER (BEAKER) (test code = 1538) 159 mg/dL 70-110 H TESTED AT [address] [address] POCT-GLUCOSE [id number] 17:29:00* Test Item Value Reference Range Interpretation Comments POC-GLUCOSE METER ([facility]) (test code = 1538) 104 mg/dL 70-110 TESTED AT [facility] [address] [facility] [address] CT, CTA [id number] 14:14:00FINAL REPORT TECHNIQUE: CTA of the abdomen [...] Buster Allen MDReport Verified Date/Time: 06/25/2018 14:14:40 Jovani manjarrez Location: [facility] B1 C013Y CT Body Reading Room GLOBIN AND [id number] 12:47:00* Test Item Value Reference Range Interpretation Comments HEMOGLOBIN (BEAKER) (test code = 410) 7.9 GM/DL 13.7-17.5 L HEMATOCRIT (BEAKER) (test code = 411) 24.6 % 40.1-51.0 L POCT-GLUCOSE [id number] 12:19:00* Test Item Value Reference Range Interpretation Comments POC-GLUCOSE METER (BEAKER) (test code = 1538) 161 mg/dL 70-110 H TESTED AT [facility] [address] [facility] [address] CBC W/PLT COUNT & AUTO [id number] 10:47:00* Test Item Value Reference Range Interpretation [...] 40.1-51.0 L RAD, CHEST, 1 VIEW, NON [id number] 07:29:00Reason for exam:->Pulmonary edema evaluationShould this be performed at the bedside?->YesFINAL REPORT Portable chest. CLINICAL HISTORY: Pulmonary edema evaluation. COMPARISON STUDY: Chest x-ray from yesterday. FINDINGS: The cardiac silhouette is enlarged. The pulmonary parenchyma demonstrates increased interstitial and patchy airspace opacities. The support lines and tubes are unchanged. No pneumothorax is seen. Degenerative changes are noted. IMPRESSION: No significant change. Signed: Andrew Sloanepjane Verified Date/Time: 06/25/2018 07:29:59 Reading Location: [facility] Radiology Reading Room [facility] signed by: ANDREW SLOAN M.D. on 06/25/2018 07:29 AM POCT-GLUCOSE METER 2018-06-25 06:28:00* Test Item Value Reference Range Interpretation Comments POC-GLUCOSE METER (BENEETU) (test code = 1538) 174 mg/dL 70-110 H TESTED AT [facility] [address] [facility] [address] [id number] 05:46:00* Test Item Value Reference Range Interpretation Comments PARTIAL THROMBOPLASTIN TIME (BEAKER) (test code = 760) 52.2 seconds 22.5-36.0 H PROTHROMBIN [id number] 05:44:00* Test Item Value Reference Range Interpretation Comments PROTIME (BEAKER) (test code = 759) 18.3 seconds 11.7-14.7 H INR (BEAKER) (test code = 370) 1.6 <=5.9 RECOMMENDED COUMADIN/WARFARIN INR THERAPY RANGESSTANDARD DOSE: 2.0 - 3.0 Inclu herb: PROPHYLAXIS for venous thrombosis, systemic embolization; TREATMENT for giulia ous thrombosis and/or pulmonary embolus.HIGH RISK: Target INR is 2.5-3.5 for pat ients with mechanical heart valves.[id number] 05:41:00* Test Item Value Reference Range Interpretation Comments MAGNESIUM (BEAKER) (test code = 627) 2.2 mg/dL 1.6-2.6 BASIC METABOLIC [id number] 05:41:00* Test Item Value Reference Range Interpretation [...] FOR DIALYSIS PATIENTS. Specimen markedly ictericHEPATIC FUNCTION [id number] 05:41:00* Test Item Value Reference Range Interpretation [...] 24 U/L 29-20 0 L BLOOD GAS, [id number] 05:35:00* Test Item Value Reference Range Interpretation [...] code = 1819) 40.0 % LACTIC ACID, [id number] 05:32:00* Test Item Value Reference Range Interpretation Comments LACTATE BLOOD ARTERIAL (2) (BEAKER) (test code = 2874) 0.5 mmol/L 0.5-2.2 Specimen markedly ictericPOCT-GLUCOSE [id number] 00:35:00* Test Item Value Reference Range Interpretation Comments POC-GLUCOSE METER (BEAKER) (test code = 1538) 140 mg/dL 70-110 H TESTED AT [address] [address] HEMOGLOBIN AND [id number] 00:32:00* Test Item Value Reference Range Interpretation Comments HEMOGLOBIN (BEAKER) (test code = 410) 8.3 GM/DL 13.7-17.5 L HEMATOCRIT (BEAKER) (test code = 411) 25.6 % 40.1-51.0 L POCT-GLUCOSE [id number] 18:59:00* Test Item Value Reference Range Interpretation Comments POC-GLUCOSE METER (BEAKER) (test code = 1538) 124 mg/dL 70-110 H TESTED AT [address] [address] HEMOGLOBIN AND [id number] 18:36:00* Test Item Value Reference Range Interpretation Comments HEMOGLOBIN (BEAKER) (test code = 410) 8.1 GM/DL 13.7-17.5 L HEMATOCRIT (BEAKER) (test code = 411) 25.1 % 40.1-51.0 L POCT-GLUCOSE [id number] 12:21:00* Test Item Value Reference Range Interpretation Comments POC-GLUCOSE METER (BEAKER) (test code = 1538) 133 mg/dL 70-110 H TESTED AT [facility] [address] [facility] [address] RAD, CHEST, 1 VIEW, NON [id number] 09:38:00Reason for exam:->Pulmonary edema evaluationShould this be performed at the bedside?->YesFINAL REPORT Comparison: 06/23/2018 TECHNIQUE: Single view of the chest FINDINGS: Lung volumes are low. There is mild vascular congestion. No gross new lung parenchymal changes. Support lines and tubes are stable. Signed: Roberth Camp MDReport Verified Date/Time: 06/24/2018 09:38:51 Reading Location: [facility] Radiology Reading Room W/PLT COUNT & AUTO [id number] 09:00:00* Test Item Value Reference Range Interpretation [...] Received comment: User comments: Slide comments: POCT-GLUCOSE [id number] 06:48:00* Test Item Value Reference Range Interpretation Comments POC-GLUCOSE METER (BEAKER) (test code = 1538) 122 mg/dL 70-110 H TESTED AT [facility] [address] [facility] [address] POCT-GLUCOSE [id number] 05:09:00* Test Item Value Reference Range Interpretation Comments POC-GLUCOSE METER (BEAKER) (test code = 1538) 138 mg/dL 70-110 H TESTED AT [place] [id number] [facility] [address] BLOOD GAS, [id number] 04:42:00* Test Item Value Reference Range Interpretation [...] (BEAKER) (test code = 1819) 40.0 % [id number] 04:32:00* Test Item Value Reference Range Interpretation Comments MAGNESIUM (BEAKER) (test code = 627) 2.0 mg/dL 1.6-2.6 BASIC METABOLIC [id number] 04:32:00* Test Item Value Reference Range Interpretation [...] FOR DIALYSIS PATIENTS. Specimen markedly ictericHEPATIC FUNCTION [id number] 04:32:00* Test Item Value Reference Range Interpretation [...] U/L 6-55 H Specimen markedly ictericLACTIC ACID, [id number] 04:22:00* Test Item Value Reference Range Interpretation Comments LACTATE BLOOD ARTERIAL (2) (BEAKER) (test code = 2874) 0.6 mmol/L 0.5-2.2 Specimen moderately [id number] 04:17:00* Test Item Value Reference Range Interpretation Comments PARTIAL THROMBOPLASTIN TIME (BEAKER) (test code = 760) 50.9 seconds 22.5-36.0 H PROTHROMBIN [id number] 04:16:00* Test Item Value Reference Range Interpretation Comments PROTIME (BEAKER) (test code = 759) 18.0 seconds 11.7-14.7 H INR (BEAKER) (test code = 370) 1.6 <=5.9 RECOMMENDED COUMADIN/WARFARIN INR THERAPY RANGESSTANDARD DOSE: 2.0 - 3.0 Inclu herb: PROPHYLAXIS for venous thrombosis, systemic embolization; TREATMENT for giulia ous thrombosis and/or pulmonary embolus.HIGH RISK: Target INR is 2.5-3.5 for pat ients with mechanical heart valves.POCT-GLUCOSE [id number] 00:29:00* Test Item Value Reference Range Interpretation Comments POC-GLUCOSE METER (BEAKER) (test code = 1538) 113 mg/dL 70-110 H TESTED AT [facility] [address] [facility] [address] POCT-GLUCOSE [id number] 18:51:00* Test Item Value Reference Range Interpretation Comments POC-GLUCOSE METER (BEAKER) (test code = 1538) 108 mg/dL 70-110 TESTED AT [place] [id number] [facility] [address] (CELLAVISION MANUAL DIFF)2018-06-23 16:53:00* Test Item Value [...] Slide comments: CBC W/PLT COUNT & AUTO [id number] 16:33:00* Test Item Value Reference Range Interpretation [...] 0-1 H CBC W/PLT COUNT & AUTO [id number] 13:52:00* Test Item Value Reference Range Interpretation [...] Received comment: User comments: Slide comments: POCT-GLUCOSE [id number] 11:56:00* Test Item Value Reference Range Interpretation Comments POC-GLUCOSE METER (BEAKER) (test code = 1538) 115 mg/dL 70-110 H TESTED AT [facility] [address] [facility] [address] [id number] 07:07:00* Test Item Value Reference Range Interpretation Comments MAGNESIUM (BEAKER) (test code = 627) 1.9 mg/dL 1.6-2.6 BASIC METABOLIC [id number] 07:07:00* Test Item Value Reference Range Interpretation [...] FOR DIALYSIS PATIENTS. Specimen markedly ictericHEPATIC FUNCTION [id number] 07:07:00* Test Item Value Reference Range Interpretation [...] U/L 6-55 H Specimen markedly ictericHEMOGLOBIN AND [id number] 06:51:00* Test Item Value Reference Range Interpretation Comments HEMOGLOBIN (BEAKER) (test code = 410) 8.2 GM/DL 13.7-17.5 L HEMATOCRIT (BEAKER) (test code = 411) 25.0 % 40.1-51.0 L POCT-GLUCOSE [id number] 06:44:00* Test Item Value Reference Range Interpretation Comments POC-GLUCOSE METER (BEAKER) (test code = 1538) 121 mg/dL 70-110 H TESTED AT [facility] [address] [facility] [address] LACTIC ACID, [id number] 06:44:00* Test Item Value Reference Range Interpretation Comments LACTATE BLOOD ARTERIAL (2) (BEAKER) (test code = 2874) 0.7 mmol/L 0.5-2.2 Specimen markedly [id number] 06:40:00* Test Item Value Reference Range Interpretation Comments PARTIAL THROMBOPLASTIN TIME (BEAKER) (test code = 760) 44.7 seconds 22.5-36.0 H PROTHROMBIN TIME/[id number] 06:39:00* Test Item Value Reference Range Interpretation [...] pat ients with mechanical heart valves.BLOOD GAS, [id number] 06:36:00* Test Item Value Reference Range Interpretation [...] 40.0 % RAD, CHEST, 1 VIEW, NON [id number] 04:52:00Reason for exam:->Pulmonary edema evaluationShould this be [...] MDReport Verified Date/Time: 06/23/2018 04:52:15 Reading Location: [address] Neuro Reading Room U/S, ABDOMINAL, [id number] 03:15:00Abdomen limited area? Add comment if clarification [...] MDReport Verified Date/Time: 06/23/2018 03:15:49 Reading Location: [address] Reading Room GLOBIN AND [id number] 01:05:00* Test Item Value Reference Range Interpretation Comments HEMOGLOBIN (BEAKER) (test code = 410) 8.4 GM/DL 13.7-17.5 L HEMATOCRIT (BEAKER) (test code = 411) 25.9 % 40.1-51.0 L POCT-GLUCOSE [id number] 00:43:00* Test Item Value Reference Range Interpretation Comments POC-GLUCOSE METER (BEAKER) (test code = 1538) 180 mg/dL 70-110 H TESTED AT [address] [address] HEMOGLOBIN AND [id number] 21:03:00* Test Item Value Reference Range Interpretation Comments HEMOGLOBIN (BEAKER) (test code = 410) 8.6 GM/DL 13.7-17.5 L HEMATOCRIT (BEAKER) (test code = 411) 25.8 % 40.1-51.0 L POCT-GLUCOSE [id number] 18:20:00* Test Item Value Reference Range Interpretation Comments POC-GLUCOSE METER (BEAKER) (test code = 1538) 265 mg/dL 70-110 H TESTED AT [address] [address] HEMOGLOBIN AND [id number] 12:41:00* Test Item Value Reference Range Interpretation Comments HEMOGLOBIN (BEAKER) (test code = 410) 7.6 GM/DL 13.7-17.5 L HEMATOCRIT (BEAKER) (test code = 411) 23.4 % 40.1-51.0 L POCT-GLUCOSE [id number] 12:29:00* Test Item Value Reference Range Interpretation Comments POC-GLUCOSE METER (BEAKER) (test code = 1538) 150 mg/dL 70-110 H TESTED AT [place] [id number] RAD, CHEST, 1 VIEW, NON [id number] 08:40:00Reason for exam:->Pulmonary edema evaluationShould this be [...] passes below the diaphragm. Signed: Kirt Sheffield MDReport Verified Date/Time: 06/22/2018 08:40:31 Reading Location: [address] Transitional Reading Room - GLUCOSE [id number] 06:33:00* Test Item Value Reference Range Interpretation Comments POC-GLUCOSE METER (BEAKER) (test code = 1538) 159 mg/dL 70-110 H TESTED AT [facility] [address] [place] [address] LACTIC ACID, [id number] 04:16:00* Test Item Value Reference Range Interpretation Comments LACTATE BLOOD ARTERIAL (2) (BEAKER) (test code = 2874) 0.5 mmol/L 0.5-2.2 Specimen markedly ictericBASIC METABOLIC [id number] 04:12:00* Test Item Value Reference Range Interpretation [...] APPLICABLE FOR DIALYSIS PATIENTS. Specimen markedly ictericCALCIUM, [id number] 04:10:00* Test Item Value Reference Range Interpretation Comments CALCIUM IONIZED (BEAKER) (test code = 698) 1.28 mmol/L 1.12-1.27 H PH, BLOOD (BEAKER) (test code = 1810) 7.41 Check serum Ionized Calcium level after 4 hours after IV Calcium replacement. BLOOD GAS, [id number] 04:05:00* Test Item Value Reference Range Interpretation [...] 40.0 % CBC W/PLT COUNT & AUTO [id number] 04:02:00* Test Item Value Reference Range Interpretation [...] code = 2801) 4 % 0-1 H [id number] 03:56:00* Test Item Value Reference Range Interpretation Comments MAGNESIUM (BEAKER) (test code = 627) 2.0 mg/dL 1.6-2.6 HEPATIC FUNCTION [id number] 03:56:00* Test Item Value Reference Range Interpretation [...] 347) 136 U/L 6-55 H Specimen markedly [id number] 03:53:00* Test Item Value Reference Range Interpretation Comments PARTIAL THROMBOPLASTIN TIME (BEAKER) (test code = 760) 40.4 seconds 22.5-36.0 H PROTHROMBIN TIME/[id number] 03:52:00* Test Item Value Reference Range Interpretation [...] pat ients with mechanical heart valves.HEMOGLOBIN AND [id number] 03:41:00 * Test Item Value Reference Range Interpretation Comments HEMOGLOBIN (BEAKER) (test code = 410) 8.1 GM/DL 13.7-17.5 L HEMATOCRIT (BEAKER) (test code = 411) 24.4 % 40.1-51.0 L BLOOD [id number] 01:25:00* Test Item Value Reference Range Interpretation Comments CULTURE (BEAKER) (test code = 1095) No growth in 5 days BLOOD [id number] 01:25:00* Test Item Value Reference Range Interpretation Comments CULTURE (BEAKER) (test code = 1095) No growth in 5 days HEMOGLOBIN AND [id number] 00:32:00* Test Item Value Reference Range Interpretation Comments HEMOGLOBIN (BEAKER) (test code = 410) 9.1 GM/DL 13.7-17.5 L HEMATOCRIT (BEAKER) (test code = 411) 27.2 % 40.1-51.0 L POCT-GLUCOSE [id number] 00:18:00* Test Item Value Reference Range Interpretation Comments POC-GLUCOSE METER (BEAKER) (test code = 1538) 189 mg/dL 70-110 H TESTED AT [facility] [address] [facility] [address] ANG, VISCERAL [id number] 22:13:00FINAL REPORT Mesenteric Arteriography Clinical History:GI bleed [...] inch guide wire was advanced. A 5 [place]ander sheath was util ized. A 5 [place] island[place] Baker catheter was placed selectively into the [...] Rogel Verified Date/Time: 06/21/2018 22:13:37 Reading Location: [address] Reading Room Electronically signed by: KAI ROGEL M.D. on 05/28 10:13 PM RAD, ABDOMEN/KUB, 1 VIEW [id number] 20:57:00Reason for exam:-> abdominal distention sp coilsFINAL [...] MDReport Verified Date/Time: 06/21/2018 20:57:09 Reading Location: [address] Consult Reading Room W/PLT COUNT & AUTO [id number] 18:35:00* Test Item Value Reference Range Interpretation [...] Received comment: User comments: Slide comments: POCT-GLUCOSE [id number] 17:53:00* Test Item Value Reference Range Interpretation Comments POC-GLUCOSE METER (BEAKER) (test code = 1538) 212 mg/dL 70-110 H TESTED AT [facility] [address] [facility] [address] BASIC METABOLIC [id number] 17:52:00* Test Item Value Reference Range Interpretation [...] FOR DIALYSIS PATIENTS. Specimen markedly ictericLACTIC ACID, [id number] 17:45:00* Test Item Value Reference Range Interpretation Comments LACTATE BLOOD ARTERIAL (2) (BEAKER) (test code = 2874) 0.6 mmol/L 0.5-2.2 Specimen markedly ictericHEMOGLOBIN AND [id number] 17:32:00* Test Item Value Reference Range Interpretation Comments HEMOGLOBIN (BEAKER) (test code = 410) 7.4 GM/DL 13.7-17.5 L HEMATOCRIT (BEAKER) (test code = 411) 22.4 % 40.1-51.0 L BLOOD GAS, [id number] 17:25:00* Test Item Value Reference Range Interpretation [...] 0.0-5.0 H RAD, CHEST, 1 VIEW, NON [id number] 14:14:00Reason for exam:->line placementShould this be performed [...] pneumothorax. Improvement in pulmonary opacities. Signed: Andrew Sloan MDReport Verified Date/Time: 06/21/2018 14:14:23 Reading Location: [address] Consult Reading Room GLOBIN AND [id number] 14:12:00* Test Item Value Reference Range Interpretation Comments HEMOGLOBIN (BEAKER) (test code = 410) 6.3 GM/DL 13.7-17.5 L HEMATOCRIT (BEAKER) (test code = 411) 19.7 % 40.1-51.0 L PROTHROMBIN [id number] 14:10:00* Test Item Value Reference Range Interpretation Comments PROTIME (BEAKER) (test code = 759) 18.5 seconds 11.7-14.7 H INR (BEAKER) (test code = 370) 1.5 <=5.9 RECOMMENDED COUMADIN/WARFARIN INR THERAPY RANGESSTANDARD DOSE: 2.0 - 3.0 Inclu herb: PROPHYLAXIS for venous thrombosis, systemic embolization; TREATMENT for giulia ous thrombosis and/or pulmonary embolus.HIGH RISK: Target INR is 2.5-3.5 for pat ients with mechanical heart valves.[id number] 14:10:00* Test Item Value Reference Range Interpretation Comments FIBRINOGEN LEVEL (BEAKER) (test code = 658) 405 mg/dl 225-434 [id number] 14:10:00* Test Item Value Reference Range Interpretation Comments PARTIAL THROMBOPLASTIN TIME (BEAKER) (test code = 760) 43.9 seconds 22.5-36.0 H LACTIC ACID, [id number] 13:57:00* Test Item Value Reference Range Interpretation Comments LACTATE BLOOD ARTERIAL (2) (BEAKER) (test code = 2874) 0.8 mmol/L 0.5-2.2 Specimen markedly ictericPLATELET [id number] 13:47:00* Test Item Value Reference Range Interpretation Comments PLATELET COUNT (BEAKER) (test code = 756) 347 K/CU MM 150-450 CALCIUM, [id number] 13:46:00* Test Item Value Reference Range Interpretation Comments CALCIUM IONIZED (BEAKER) (test code = 698) 1.03 mmol/L 1.12-1.27 L PH, BLOOD (BEAKER) (test code = 1810) 7.40 POTASSIUM-STAT [id number] 13:45:00* Test Item Value Reference Range Interpretation Comments POTASSIUM (BEAKER) (test code = 379) 3.3 meq/L 3.6-5.5 L GLUCOSE-STAT [id number] 13:45:00* Test Item Value Reference Range Interpretation Comments GLUCOSE RANDOM (BEAKER) (test code = 652) 213 mg/dL 70-110 H HGB/HCT (H&H) - STAT [id number] 13:45:00* Test Item Value Reference Range Interpretation Comments HEMOGLOBIN (BEAKER) (test code = 410) 6.4 g/dL 13.0-16.8 L HEMATOCRIT (BEAKER) (test code = 411) 19.0 % 40.0-50.0 L BLOOD GAS, [id number] 13:45:00* Test Item Value Reference Range Interpretation [...] code = 1819) 40.0 % SODIUM NA-STAT [id number] 13:44:00* Test Item Value Reference Range Interpretation Comments SODIUM (BEAKER) (test code = 381) 142 meq/L 135-148 [id number] 12:39:00* Test Item Value Reference Range Interpretation Comments PROCALCITONIN (BEAKER) (test code = 3036) 3.47 ng/mL <0.05 H SEPSIS RISK (ng/mL)Low: 0.05-0.50Intermediate: 0.51-2.00High: > =2.01POCT-GLUCOSE [id number] 12:37:00* Test Item Value Reference Range Interpretation Comments POC-GLUCOSE METER (BEAKER) (test code = 1538) 242 mg/dL 70-110 H TESTED AT [facility] [address] [facility] [address] LACTIC ACID, [id number] 12:37:00* Test Item Value Reference Range Interpretation Comments LACTATE BLOOD ARTERIAL (2) (BEAKER) (test code = 2874) 1.0 mmol/L 0.5-2.2 Specimen markedly ictericBLOOD GAS, [id number] 12:23:00* Test Item Value Reference Range Interpretation [...] code = 1819) 40.0 % HEMOGLOBIN AND [id number] 11:40:00* Test Item Value Reference Range Interpretation Comments HEMOGLOBIN (BEAKER) (test code = 410) 7.3 GM/DL 13.7-17.5 L HEMATOCRIT (BEAKER) (test code = 411) 22.6 % 40.1-51.0 L URINALYSIS W/ REFLEX URINE [id number] 11:19:00* Test Item Value Reference Range Interpretation [...] SOURCE(BEAKER) (test code = 2795) OXYGEN SATURATION, [id number] 11:10:00* Test Item Value Reference Range Interpretation Comments O2 SATURATION (MEASURED) (BEAKER) (test code = 1455) 63.5 % POCT-GLUCOSE [id number] 09:37:00* Test Item Value Reference Range Interpretation Comments POC-GLUCOSE METER (BEAKER) (test code = 1538) 258 mg/dL 70-110 H TESTED AT [facility] [address] [place] [address] CBC W/PLT COUNT & AUTO [id number] 08:40:00* Test Item Value Reference Range Interpretation [...] MDReport Verified Date/Time: 06/21/2018 07:46:59 Reading Location: [facility] Reading Room TIC FUNCTION [id number] 04:40:00* Test Item Value Reference Range Interpretation [...] U/L 6-55 H Specimen markedly ictericBASIC METABOLIC [id number] 04:40:00* Test Item Value Reference Range Interpretation [...] NOT APPLICABLE FOR DIALYSIS PATIENTS. Specimen markedly [id number] 04:26:00* Test Item Value Reference Range Interpretation Comments MAGNESIUM (BEAKER) (test code = 627) 2.1 mg/dL 1.6-2.6 LACTIC ACID, [id number] 04:17:00* Test Item Value Reference Range Interpretation Comments LACTATE BLOOD ARTERIAL (2) (BEAKER) (test code = 2874) 1.0 mmol/L 0.5-2.2 Specimen markedly [id number] 04:12:00* Test Item Value Reference Range Interpretation Comments PARTIAL THROMBOPLASTIN TIME (BEAKER) (test code = 760) 47.7 seconds 22.5-36.0 H PROTHROMBIN TIME/[id number] 04:11:00* Test Item Value Reference Range Interpretation [...] pat ients with mechanical heart valves.BLOOD GAS, [id number] 03:57:00* Test Item Value Reference Range Interpretation [...] (BEAKER) (test code = 1819) 40.0 % [id number] 01:01:00* Test Item Value Reference Range Interpretation Comments POTASSIUM (BEAKER) (test code = 379) 3.4 meq/L 3.5-5.1 L PRN - repeat glucose levels every 1 hour or as specified by insulin titration or ders until glucose level is less than 450 mg/dLCheck Serum Potassium level 2 roxy rs after oral potassium replacement completed or 30 min after intravenous potass ium replacement.[id number] 01:01:00* Test Item Value Reference Range Interpretation Comments MAGNESIUM (BEAKER) (test code = 627) 2.0 mg/dL 1.6-2.6 PRN - repeat glucose levels every 1 hour or as specified by insulin titration or ders until glucose level is less than 450 mg/dLCheck Serum Potassium level 2 roxy rs after oral potassium replacement completed or 30 min after intravenous potass ium replacement.[id number] 01:01:00* Test Item Value Reference Range Interpretation Comments GLUCOSE RANDOM (BEAKER) (test code = 652) 220 mg/dL 70-105 H PRN - repeat glucose levels every 1 hour or as specified by insulin titration or ders until glucose level is less than 450 mg/dLCheck Serum Potassium level 2 roxy rs after oral potassium replacement completed or 30 min after intravenous potass ium replacement.CALCIUM, [id number] 00:47:00* Test Item Value Reference Range Interpretation Comments CALCIUM IONIZED (BEAKER) (test code = 698) 1.05 mmol/L 1.12-1.27 L PH, BLOOD (BEAKER) (test code = 1810) 7.48 Check serum Ionized Calcium level after 4 hours after IV Calcium replacement. BLOOD GAS, [id number] 21:09:00* Test Item Value Reference Range Interpretation [...] code = 1819) 40.0 % Before ventPOCT-GLUCOSE [id number] 17:55:00* Test Item Value Reference Range Interpretation Comments POC-GLUCOSE METER (BEAKER) (test code = 1538) 254 mg/dL 70-110 H TESTED AT [facility] [address] [facility] [address] BASIC METABOLIC [id number] 17:37:00* Test Item Value Reference Range Interpretation [...] FOR DIALYSIS PATIENTS. Specimen markedly ictericHEMOGLOBIN AND [id number] 17:18:00* Test Item Value Reference Range Interpretation Comments HEMOGLOBIN (BEAKER) (test code = 410) 8.2 GM/DL 13.7-17.5 L HEMATOCRIT (BEAKER) (test code = 411) 24.9 % 40.1-51.0 L CALCIUM, [id number] 17:14:00* Test Item Value Reference Range Interpretation Comments CALCIUM IONIZED (BEAKER) (test code = 698) 1.04 mmol/L 1.12-1.27 L PH, BLOOD (BEAKER) (test code = 1810) 7.49 Check serum Ionized Calcium level after 4 hours after IV Calcium replacement. POCT-GLUCOSE [id number] 17:00:00* Test Item Value Reference Range Interpretation Comments POC-GLUCOSE METER (BEAKER) (test code = 1538) 238 mg/dL 70-110 H TESTED AT [facility] [address] [facility] [address] POCT-GLUCOSE [id number] 11:59:00* Test Item Value Reference Range Interpretation Comments POC-GLUCOSE METER (BEAKER) (test code = 1538) 199 mg/dL 70-110 H TESTED AT [facility] [address] [facility] [address] BASIC METABOLIC [id number] 10:07:00* Test Item Value Reference Range Interpretation [...] FOR DIALYSIS PATIENTS. Specimen markedly ictericHEMOGLOBIN AND [id number] 09:56:00* Test Item Value Reference Range Interpretation Comments HEMOGLOBIN (BEAKER) (test code = 410) 8.2 GM/DL 13.7-17.5 L HEMATOCRIT (BEAKER) (test code = 411) 24.9 % 40.1-51.0 L SPUTUM CULTURE + GRAM [id number] 09:21:00* Test Item Value Reference Range Interpretation Comments CULTURE (BEAKER) (test code = 1095) <1+ Normal respiratory chase pr esent GRAM STAIN RESULT (BEAKER) (test code = 1123) <1+ WBCs GRAM STAIN RESULT (BEAKER) (test code = 45590) 0-5 epithelial cells GRAM STAIN RESULT (BEAKER) (test code = 04017) No organisms seen CBC W/PLT COUNT & AUTO [id number] 08:52:00* Test Item Value Reference Range Interpretation [...] quate Received comment: User comments: Slide comments: [id number] 08:27:00* Test Item Value Reference Range Interpretation Comments T3 TOTAL (BEAKER) (test code = 656) 55 ng/dL 48-159 CALCIUM, [id number] 05:17:00* Test Item Value Reference Range Interpretation Comments CALCIUM IONIZED (BEAKER) (test code = 698) 1.01 mmol/L 1.12-1.27 L PH, BLOOD (BEAKER) (test code = 1810) 7.43 HEPATIC FUNCTION [id number] 05:05:00* Test Item Value Reference Range Interpretation [...] U/L 6-55 H Specimen markedly ictericBASIC METABOLIC [id number] 05:05:00* Test Item Value Reference Range Interpretation [...] NOT APPLICABLE FOR DIALYSIS PATIENTS. Specimen markedly [id number] 05:04:00* Test Item Value Reference Range Interpretation Comments MAGNESIUM (BEAKER) (test code = 627) 2.2 mg/dL 1.6-2.6 RAD, CHEST, 1 VIEW, NON [id number] 04:59:00Reason for exam:->Pulmonary edema evaluationShould this be [...] Stable contours. Additional findings: None. Signed: Adri Avendañoeport Verified Date/Time: 06/20/2018 04:59:55 Reading Location: [address] Neuro Reading Room [id number] 04:44:00* Test Item Value Reference Range Interpretation Comments PARTIAL THROMBOPLASTIN TIME (BEAKER) (test code = 760) 45.0 seconds 22.5-36.0 H PROTHROMBIN TIME/[id number] 04:43:00* Test Item Value Reference Range Interpretation [...] pat ients with mechanical heart valves.LACTIC ACID, [id number] 04:41:00* Test Item Value Reference Range Interpretation Comments LACTATE BLOOD ARTERIAL (2) (BEAKER) (test code = 2874) 0.6 mmol/L 0.5-2.2 Specimen markedly ictericBLOOD GAS, [id number] 04:29:00* Test Item Value Reference Range Interpretation [...] code = 1819) 40.0 % BASIC METABOLIC [id number] 01:12:00* Test Item Value Reference Range Interpretation [...] FOR DIALYSIS PATIENTS. Specimen markedly ictericHEMOGLOBIN AND [id number] 00:24:00* Test Item Value Reference Range Interpretation Comments HEMOGLOBIN (BEAKER) (test code = 410) 8.3 GM/DL 13.7-17.5 L HEMATOCRIT (BEAKER) (test code = 411) 25.0 % 40.1-51.0 L POCT-GLUCOSE [id number] 00:18:00* Test Item Value Reference Range Interpretation Comments POC-GLUCOSE METER (BEAKER) (test code = 1538) 233 mg/dL 70-110 H TESTED AT [facility] [address] [facility] [address] HEMOGLOBIN AND [id number] 20:18:00* Test Item Value Reference Range Interpretation Comments HEMOGLOBIN (BEAKER) (test code = 410) 8.4 GM/DL 13.7-17.5 L HEMATOCRIT (BEAKER) (test code = 411) 25.0 % 40.1-51.0 L BASIC METABOLIC [id number] 19:06:00* Test Item Value Reference Range Interpretation [...] FOR DIALYSIS PATIENTS. Specimen markedly ictericBASIC METABOLIC [id number] 19:06:00* Test Item Value Reference Range Interpretation [...] FOR DIALYSIS PATIENTS. Specimen markedly ictericHEMOGLOBIN AND [id number] 18:48:00* Test Item Value Reference Range Interpretation Comments HEMOGLOBIN (BEAKER) (test code = 410) 8.3 GM/DL 13.7-17.5 L HEMATOCRIT (BEAKER) (test code = 411) 25.7 % 40.1-51.0 L POCT-GLUCOSE [id number] 17:33:00* Test Item Value Reference Range Interpretation Comments POC-GLUCOSE METER (BEAKER) (test code = 1538) 193 mg/dL 70-110 H TESTED AT [address] [place] [address] CYTOMEGALOVIRUS ANTIBODY, [id number] 14:16:00* Test Item Value Reference Range Interpretation Comments CYTOMEGALOVIRUS, IGG (GAURAVAKER) (test code = 3429) Negative Negat mumtaz, Equivocal CMV IgG Result Interpretation: </= 0.8 Al Negative 0.9-1.0 Al Equivocal > /=1.1 Al PositiveCYTOMEGALOVIRUS ANTIBODY, [id number] 14:16:00* Test Item Value Reference Range Interpretation Comments CYTOMEGALOVIRUS IGM ANTIBODY (BEAKER) (test code = 3437) Neg ative Negative, Equivocal CMV IgM Result Interpretation: </= 0.8 Al Negative 0.9-1.0 Al Equivocal > /= 1.1 Al PositiveEBV ANTIBODY, [id number] 14:16:00* Test Item Value Reference Range Interpretation Comments ALEX MAE VIRAL CAPSID ANTIGEN IGG (GAURAVAKER) (test code = 3415) Positive Negative, Equivocal A Alex Mae Viral Capsid Antigen IgG Result Interpretation: </= 0.8 Al Negative 0.9-1.0 Al Equivocal >/= 1.1 Al PositiveEBV ANTIBODY, [id number] 14:16:00* Test Item Value Reference Range Interpretation Comments ALEX MEA VIRAL CAPSID ANTIGEN IGM (GAURAVAKER) (test code = 3418) Positive Negative, Equivocal A Alex Mae Viral Capsid Antigen IgM Result Interpretation: </= 0.8 Al Negative 0.9-1.0 Al Equivocal >/= 1.1 Al PositiveHEMOGLOBIN AND HEMATOCRIT 2018-06-19 13:40:00* Test Item Value Reference Range Interpretation Comments HEMOGLOBIN (BEAKER) (test code = 410) 8.5 GM/DL 13.7-17.5 L HEMATOCRIT (BEAKER) (test code = 411) 26.4 % 40.1-51.0 L POCT-GLUCOSE [id number] 12:45:00* Test Item Value Reference Range Interpretation Comments POC-GLUCOSE METER (BEAKER) (test code = 1538) 204 mg/dL 70-110 H TESTED AT [place] [id number] [facility] [address] CBC W/PLT COUNT & AUTO [id number] 11:32:00* Test Item Value Reference Range Interpretation [...] manually reviewed rbc morp hology on the [id number] 11:25:00* Test Item Value Reference Range Interpretation Comments RPR SCREEN (BEAKER) (test code = 420) Nonreactive Nonreactive [id number] 11:23:00* Test Item Value Reference Range Interpretation Comments AMMONIA (BEAKER) (test code = 348) 62 mol/L 18-72 HEMOGLOBIN AND [id number] 10:37:00* Test Item Value Reference Range Interpretation Comments HEMOGLOBIN (BEAKER) (test code = 410) 7.9 GM/DL 13.7-17.5 L HEMATOCRIT (BEAKER) (test code = 411) 24.4 % 40.1-51.0 L BASIC METABOLIC [id number] 09:29:00* Test Item Value Reference Range Interpretation [...] APPLICABLE FOR DIALYSIS PATIENTS. Specimen markedly ictericPOCT-GLUCOSE [id number] 08:36:00* Test Item Value Reference Range Interpretation Comments POC-GLUCOSE METER (BEAKER) (test code = 1538) 211 mg/dL 70-110 H TESTED AT [facility] [address] [facility] [address] RAD, CHEST, 1 VIEW, NON [id number] 07:24:00Reason for exam:->Pulmonary edema evaluationShould this be performed at the bedside?->YesFINAL REPORT CLINICAL HISTORY: Pulmonary edema evaluation TECHNIQUE: 1 view of the chest. COMPARISON: 06/18/2018 IMPRESSION: The supporting lines and tubes are unchanged. Bilateral interstitial infiltrates appear unchanged versus slightly decreased. There is no significant appearing pleural fluid. The cardiomediastinal silhouette is magnified by technique. Signed: Omero Moura MDReport Verified Date/Time: 06/19/2018 07:24:06 Reading Location: [address] Neuro Reading Room Electronically signed by: OMERO MOURA M.D. on 07:24 AM [id number] 05:40:00* Test Item Value Reference Range Interpretation Comments PARTIAL THROMBOPLASTIN TIME (BEAKER) (test code = 760) 44.4 seconds 22.5-36.0 H PROTHROMBIN TIME/[id number] 05:39:00* Test Item Value Reference Range Interpretation [...] pat ients with mechanical heart valves.HEPATIC FUNCTION [id number] 05:17:00* Test Item Value Reference Range Interpretation [...] U/L 6-55 H Specimen markedly ictericBASIC METABOLIC [id number] 05:17:00* Test Item Value Reference Range Interpretation [...] NOT APPLICABLE FOR DIALYSIS PATIENTS. Specimen markedly [id number] 05:13:00* Test Item Value Reference Range Interpretation Comments PHOSPHORUS (BEAKER) (test code = 604) 5.3 mg/dL 2.3-4.7 H [id number] 05:13:00* Test Item Value Reference Range Interpretation Comments MAGNESIUM (BEAKER) (test code = 627) 2.2 mg/dL 1.6-2.6 LACTIC ACID, [id number] 04:57:00* Test Item Value Reference Range Interpretation Comments LACTATE BLOOD ARTERIAL (2) (BEAKER) (test code = 2874) 0.7 mmol/L 0.5-2.2 Specimen markedly ictericCALCIUM, [id number] 04:46:00* Test Item Value Reference Range Interpretation Comments CALCIUM IONIZED (BEAKER) (test code = 698) 1.07 mmol/L 1.12-1.27 L PH, BLOOD (BEAKER) (test code = 1810) 7.47 BLOOD GAS, [id number] 04:46:00* Test Item Value Reference Range Interpretation [...] code = 1819) 40.0 % OCCULT BLOOD, [id number] 01:25:00* Test Item Value Reference Range Interpretation Comments FECAL OCCULT BLOOD (BEAKER) (test code = 618) Positive Negative A BASIC METABOLIC [id number] 23:56:00* Test Item Value Reference Range Interpretation [...] APPLICABLE FOR DIALYSIS PATIENTS. Specimen markedly ictericCALCIUM, [id number] 23:54:00* Test Item Value Reference Range Interpretation Comments CALCIUM IONIZED (BEAKER) (test code = 698) 1.11 mmol/L 1.12-1.27 L PH, BLOOD (BEAKER) (test code = 1810) 7.46 Check serum Ionized Calcium level after 4 hours after IV Calcium replacement. HEMOGLOBIN AND [id number] 23:37:00* Test Item Value Reference Range Interpretation Comments HEMOGLOBIN (BEAKER) (test code = 410) 7.0 GM/DL 13.7-17.5 L HEMATOCRIT (BEAKER) (test code = 411) 22.2 % 40.1-51.0 L POCT-GLUCOSE [id number] 23:36:00* Test Item Value Reference Range Interpretation Comments POC-GLUCOSE METER (BEAKER) (test code = 1538) 161 mg/dL 70-110 H TESTED AT [facility] [address] [facility] [address] HEMOGLOBIN AND [id number] 20:42:00* Test Item Value Reference Range Interpretation Comments HEMOGLOBIN (BEAKER) (test code = 410) 7.2 GM/DL 13.7-17.5 L HEMATOCRIT (BEAKER) (test code = 411) 22.3 % 40.1-51.0 L CBC W/PLT COUNT & AUTO [id number] 18:06:00* Test Item Value Reference Range Interpretation [...] Received comment: User comments: Slide comments: POCT-GLUCOSE [id number] 17:33:00* Test Item Value Reference Range Interpretation Comments POC-GLUCOSE METER (BEAKER) (test code = 1538) 196 mg/dL 70-110 H TESTED AT [facility] [address] [facility] [address] BASIC METABOLIC [id number] 17:24:00* Test Item Value Reference Range Interpretation [...] NOT APPLICABLE FOR DIALYSIS PATIENTS. Specimen markedly [id number] 14:47:00* Test Item Value Reference Range Interpretation Comments T4 TOTAL (BEAKER) (test code = 895) 8.1 ug/dL 4.9-11.7 CRYPTOCOCCAL [id number] 14:31:00* Test Item Value Reference Range Interpretation Comments CRYPTOCOCCAL ANTIGEN, SERUM (BEAKER) (test code = 1828) Nega tive Negative, Interference [id number] 14:20:00* Test Item Value Reference Range Interpretation Comments FERRITIN (BEAKER) (test code = 361) 2332 ng/mL 5-275 H LIPID [id number] 14:07:00* Test Item Value Reference Range Interpretation [...] High 160-189 Very High >=190 Specimen markedly [id number] 13:01:00* Test Item Value Reference Range Interpretation Comments PROSTATE SPECIFIC ANTIGEN (BEAKER) (test code = 844) 0.5 ng/mL 0 .0-4.0 HIV-1 ANTIGEN WITH HIV-1/2 [id number] 13:01:00* Test Item Value Reference Range Interpretation Comments HIV-1 ANTIGEN WITH HIV 1\\T\\2 ANTIBODY (2) (BEAKER) (te st code = 2586) Nonreactive Nonreactive CARCINOEMBRYONIC ANTIGEN (CEA)2018-06-18 13:01:00* Test Item Value Reference Range Interpretation Comments CARCINOEMBRYONIC ANTIGEN (BEAKER) (test code = 685) 16.6 ng/mL 0. 0-5.0 H VITAMIN D, [id number] 13:01:00* Test Item Value Reference Range Interpretation Comments VITAMIN D 25-OH (BEAKER) (test code = 2764) 14.7 ng/mL 6.6-49.9 Effective 12/06/2016: Reference Range ChangeNew: 6.6-49.9 ng/mL Previous: 13.0 -47.8 ng/mLRecommended Vitamin D Target Range: 30.0-40.0 ng/mLPOCT-GLUCOSE METER 2018-06-18 12:53:00* Test Item Value Reference Range Interpretation Comments POC-GLUCOSE METER (BEAKER) (test code = 1538) 239 mg/dL 70-110 H TESTED AT [facility] [address] [facility] [address] [id number] 12:43:00* Test Item Value Reference Range Interpretation Comments TRANSFERRIN (BEAKER) (test code = 541) 112 mg/dL 174-382 L Specimen markedly ictericURIC [id number] 12:42:00* Test Item Value Reference Range Interpretation Comments URIC ACID (BEAKER) (test code = 773) 15.6 mg/dL 2.6-7.2 H Specimen markedly ictericGAMMA GLUTAMYL TRANSFERASE (GGT)2018-06-18 12:42:00* Test Item Value Reference Range Interpretation Comments GAMMA GLUTAMYL TRANSFERASE (BEAKER) (test code = 364) 125 U/L 9-64 H Specimen markedly [id number] 12:40:00* Test Item Value Reference Range Interpretation Comments ETHANOL (BEAKER) (test code = 400) < mg/dL <=10 [id number] 12:35:00* Test Item Value Reference Range Interpretation Comments FIBRINOGEN LEVEL (BEAKER) (test code = 658) 811 mg/dl 225-434 H BLOOD [id number] 11:56:00* Test Item Value Reference Range Interpretation Comments CULTURE (BEAKER) (test code = 1095) No growth in 5 days BLOOD [id number] 11:56:00* Test Item Value Reference Range Interpretation Comments CULTURE (BEAKER) (test code = 1095) No growth in 5 days CALCIUM, [id number] 11:40:00* Test Item Value Reference Range Interpretation Comments CALCIUM IONIZED (BEAKER) (test code = 698) 1.12 mmol/L 1.12-1.27 PH, BLOOD (BEAKER) (test code = 1810) 7.49 CBC W/PLT COUNT & AUTO [id number] 08:56:00* Test Item Value Reference Range Interpretation [...] WBC: SEGMENTED WITH TOXIG GRANU LATION PRESENT [id number] 08:54:00* Test Item Value Reference Range Interpretation Comments MAGNESIUM (BEAKER) (test code = 627) 2.3 mg/dL 1.6-2.6 BASIC METABOLIC [id number] 08:54:00* Test Item Value Reference Range Interpretation [...] APPLICABLE FOR DIALYSIS PATIENTS. Specimen markedly ictericPOCT-GLUCOSE [id number] 08:29:00* Test Item Value Reference Range Interpretation Comments POC-GLUCOSE METER (BEAKER) (test code = 1538) 223 mg/dL 70-110 H TESTED AT [facility] [address] [facility] [address] RAD, CHEST, 1 VIEW, NON [id number] 04:54:00Reason for exam:->Pulmonary edema evaluationShould this be [...] no pleural effusion or pneumothorax. Signed: Nicolás Ceballos Verified D ate/Time: 06/18/2018 04:54:27 Reading Location: [facility] C013Y CT Body Reading Ro om D GAS, [id number] 04:39:00* Test Item Value Reference Range Interpretation [...] code = 1819) 40.0 % HEPATIC FUNCTION [id number] 04:35:00* Test Item Value Reference Range Interpretation [...] 347) 138 U/L 6-55 H Specimen markedly [id number] 04:34:00* Test Item Value Reference Range Interpretation Comments MAGNESIUM (BEAKER) (test code = 627) 2.5 mg/dL 1.6-2.6 BASIC METABOLIC [id number] 04:34:00* Test Item Value Reference Range Interpretation [...] code = 380) 50 U/L 29-20 0 [id number] 04:23:00* Test Item Value Reference Range Interpretation Comments PARTIAL THROMBOPLASTIN TIME (BEAKER) (test code = 760) 49.4 seconds 22.5-36.0 H PROTHROMBIN TIME/[id number] 04:22:00* Test Item Value Reference Range Interpretation [...] pat ients with mechanical heart valves.LACTIC ACID, [id number] 04:17:00* Test Item Value Reference Range Interpretation Comments LACTATE BLOOD ARTERIAL (2) (BEAKER) (test code = 2874) 1.3 mmol/L 0.5-2.2 Specimen markedly [id number] 00:59:00* Test Item Value Reference Range Interpretation Comments MAGNESIUM (BEAKER) (test code = 627) 2.1 mg/dL 1.6-2.6 BASIC METABOLIC [id number] 00:59:00* Test Item Value Reference Range Interpretation [...] APPLICABLE FOR DIALYSIS PATIENTS. Specimen markedly ictericPOCT-GLUCOSE [id number] 00:20:00* Test Item Value Reference Range Interpretation Comments POC-GLUCOSE METER (BEAKER) (test code = 1538) 155 mg/dL 70-110 H TESTED AT [facility] [address] [facility] [address] POCT-GLUCOSE [id number] 18:09:00* Test Item Value Reference Range Interpretation Comments POC-GLUCOSE METER (BEAKER) (test code = 1538) 187 mg/dL 70-110 H TESTED AT [facility] [address] [facility] [address] BASIC METABOLIC [id number] 16:09:00* Test Item Value Reference Range Interpretation [...] APPLICABLE FOR DIALYSIS PATIENTS. Specimen markedly ictericPOCT-GLUCOSE [id number] 12:03:00* Test Item Value Reference Range Interpretation Comments POC-GLUCOSE METER (BEAKER) (test code = 1538) 212 mg/dL 70-110 H TESTED AT [place] [id number] [facility] [address] [id number] 11:52:00* Test Item Value Reference Range Interpretation Comments MAGNESIUM (BEAKER) (test code = 627) 2.0 mg/dL 1.6-2.6 BASIC METABOLIC [id number] 11:52:00* Test Item Value Reference Range Interpretation [...] code = 697) 9.3 mg/dL 8.4-10.2 EGFR (GAURAVAKER) (test code = 1092) 31 mL/min/1.73 sq m ESTIMATED GFR IS NOT ACCURATE CREATININE CLEARANCE IN PREDICTING GLOMERULAR FILTRATION RATE. ESTIMATED GFR IS NOT APPLICABLE FOR DIALYSIS PATIENTS. Specimen markedly ictericPERIPHERAL BLOOD SMEAR - PATHOLOGIST [id number] 08:37:00* Test Item Value Reference Range Interpretation Comments PERIPHERAL SMR REVIEW ([facility]) (test code = 2640) Left shifted granulocytes with toxic changes. No circulating blasts. No significantly increased schistocytes. [id number] ([facility]) (test code = 2849) Raul Arenas M.D.(electronic signature) RAD, CHEST, 1 VIEW, NON [id number] 08:15:00Reason for exam:->Pulmonary edema evaluationShould this be performed at the bedside?->YesFINAL REPORT Chest, one view. HISTORY: Pulmonary edema evaluation COMPARISON: Radiograph from 06/16/2018 IMPRESSION: Unchanged positioning of support lines and tubes. The interstitial edema is unchanged. No pleural effusion or pneumothorax. The cardiac silhouette is unchanged. No acute bony abnormality. Signed: Kyle Rae MDReport Verified Date/Time: 06/17/2018 08:15:08 Reading Location: [facility] Radiology Reading Room LT BLOOD, [id number] 07:04:00* Test Item Value Reference Range Interpretation Comments FECAL OCCULT BLOOD ([facility]) (test code = 618) Negative Negative POCT-GLUCOSE [id number] 06:28:00* Test Item Value Reference Range Interpretation Comments POC-GLUCOSE METER ([facility]) (test code = 1538) 209 mg/dL 70-110 H TESTED AT [facility] [address] [facility] [address] [id number] 05:05:00* Test Item Value Reference Range Interpretation Comments PARTIAL THROMBOPLASTIN TIME ([facility]) (test code = 760) 51.6 seconds 22.5-36.0 H PROTHROMBIN TIME/[id number] 05:04:00* Test Item Value Reference Range Interpretation [...] pat ients with mechanical heart valves.HEPATIC FUNCTION [id number] 04:18:00* Test Item Value Reference Range Interpretation [...] 347) 146 U/L 6-55 H Specimen markedly [id number] 03:59:00* Test Item Value Reference Range Interpretation Comments MAGNESIUM ([facility]) (test code = 627) 2.4 mg/dL 1.6-2.6 BASIC METABOLIC [id number] 03:59:00* Test Item Value Reference Range Interpretation [...] NOT APPLICABLE FOR DIALYSIS PATIENTS. Specimen markedly [id number] 03:59:00* Test Item Value Reference Range Interpretation Comments AMYLASE (BEAKER) (test code = 349) 49 U/L 25-125 Specimen markedly [id number] 03:59:00* Test Item Value Reference Range Interpretation Comments LIPASE (BEAKER) (test code = 749) 186 U/L 8-78 H Specimen markedly ictericLACTIC ACID, [id number] 03:41:00* Test Item Value Reference Range Interpretation Comments LACTATE BLOOD ARTERIAL (2) (BEAKER) (test code = 2874) 1.5 mmol/L 0.5-2.2 Specimen markedly ictericCBC W/PLT COUNT & AUTO [id number] 03:38:00 * Test Item Value Reference Range [...] 2801) 3 % 0-1 H BLOOD GAS, [id number] 03:30:00* Test Item Value Reference Range Interpretation [...] (test code = 1819) 40.0 % CALCIUM, [id number] 03:28:00* Test Item Value Reference Range Interpretation Comments CALCIUM IONIZED (BEAKER) (test code = 698) 1.14 mmol/L 1.12-1.27 PH, BLOOD (BEAKER) (test code = 1810) 7.53 Check serum Ionized Calcium level after 4 hours after IV Calcium replacement. POCT-GLUCOSE [id number] 00:11:00* Test Item Value Reference Range Interpretation Comments POC-GLUCOSE METER (BEAKER) (test code = 1538) 233 mg/dL 70-110 H TESTED AT [facility] [address] [facility] [address] HEMOGLOBIN AND [id number] 23:41:00* Test Item Value Reference Range Interpretation Comments HEMOGLOBIN (BEAKER) (test code = 410) 8.3 GM/DL 13.7-17.5 L HEMATOCRIT (BEAKER) (test code = 411) 26.1 % 40.1-51.0 L [id number] 20:50:00* Test Item Value Reference Range Interpretation Comments MAGNESIUM (BEAKER) (test code = 627) 2.5 mg/dL 1.6-2.6 BASIC METABOLIC [id number] 20:50:00* Test Item Value Reference Range Interpretation [...] APPLICABLE FOR DIALYSIS PATIENTS. Specimen markedly ictericCALCIUM, [id number] 20:26:00* Test Item Value Reference Range Interpretation Comments CALCIUM IONIZED (BEAKER) (test code = 698) 1.11 mmol/L 1.12-1.27 L PH, BLOOD (BEAKER) (test code = 1810) 7.53 Check serum Ionized Calcium level after 4 hours after IV Calcium replacement. POCT-GLUCOSE [id number] 20:07:00* Test Item Value Reference Range Interpretation Comments POC-GLUCOSE METER (BEAKER) (test code = 1538) 203 mg/dL 70-110 H TESTED AT [address] [address] POCT-GLUCOSE [id number] 16:57:00* Test Item Value Reference Range Interpretation Comments POC-GLUCOSE METER (BEAKER) (test code = 1538) 130 mg/dL 70-110 H TESTED AT [address] [address] VITAMIN B12 AND [id number] 16:12:00* Test Item Value Reference Range Interpretation Comments VITAMIN B12 (BEAKER) (test code = 774) 1499 pg/mL 213-816 H FOLATE (BEAKER) (test code = 362) 14.9 ng/mL >=7.0 POCT-GLUCOSE [id number] 15:35:00* Test Item Value Reference Range Interpretation Comments POC-GLUCOSE METER (BEAKER) (test code = 1538) 101 mg/dL 70-110 TESTED AT [address] [address] (MANUAL DIFFERENTIAL)2018-06-16 14:42:00* Test Item Value Reference [...] RBCS(BEAKER) (test code = 478) 1+ few [id number] 14:16:00* Test Item Value Reference Range Interpretation Comments HAPTOGLOBIN (BEAKER) (test code = 366) 250 mg/dL 14-258 [id number] 14:09:00* Test Item Value Reference Range Interpretation Comments MAGNESIUM (BEAKER) (test code = 627) 2.1 mg/dL 1.6-2.6 BASIC METABOLIC [id number] 14:09:00* Test Item Value Reference Range Interpretation [...] NOT APPLICABLE FOR DIALYSIS PATIENTS. Specimen markedly [id number] 14:09:00* Test Item Value Reference Range Interpretation Comments AMYLASE (BEAKER) (test code = 349) 55 U/L 25-125 Specimen markedly ictericLACTATE DEHYDROGENASE (LDH)2018-06-16 14:09:00* Test Item Value Reference Range Interpretation Comments LACTATE DEHYDROGENASE (BEAKER) (test code = 635) 388 U/L 125-2 20 H [id number] 14:09:00* Test Item Value Reference Range Interpretation [...] = 2590) 30 % 20-5 5 IRON, [id number] 14:04:00* Test Item Value Reference Range Interpretation Comments IRON (BEAKER) (test code = 547) 37.0 ug/dL 40.0-160.0 L LACTIC ACID, [id number] 14:02:00* Test Item Value Reference Range Interpretation [...] 0 /100 WBC 0 -0 BLOOD GAS, [id number] 13:45:00* Test Item Value Reference Range Interpretation [...] (test code = 1819) 100.0 % POCT-GLUCOSE [id number] 13:23:00* Test Item Value Reference Range Interpretation Comments POC-GLUCOSE METER (BEAKER) (test code = 1538) 121 mg/dL 70-110 H TESTED AT [facility] [address] [facility] [address] POCT-GLUCOSE [id number] 11:05:00* Test Item Value Reference Range Interpretation Comments POC-GLUCOSE METER (BEAKER) (test code = 1538) 145 mg/dL 70-110 H TESTED AT [facility] [address] [facility] [address] POCT-GLUCOSE [id number] 08:56:00* Test Item Value Reference Range Interpretation Comments POC-GLUCOSE METER (BEAKER) (test code = 1538) 147 mg/dL 70-110 H TESTED AT [facility] [address] [facility] [address] CBC W/PLT COUNT & AUTO [id number] 08:10:00* Test Item Value Reference Range Interpretation [...] - REL (DIFF) (BEAKER) (test code = 3059) 89 % LYMPHOCYTES - REL (DIFF) (BEAKER) [...] 1+ few RAD, CHEST, 1 VIEW, NON [id number] 07:59:00Reason for exam:->Pulmonary edema evaluationShould this be performed at the bedside?->YesFINAL REPORT INDICATION: Pulmonary edema evaluation COMPARISON:June 15. TECHNIQUE: Chest radiograph, single view, portable technique. FINDINGS / IMPRESSION: Prominent heart shadow and diffuse interstitial pulmonary edema are again demonstrated. Support lines and tubes unchanged and appear satisfactory. No pneumothorax. Signed: Natalio Santillan [facility] Verified Date/Time: 06/16/2018 07:59:49 Reading Location: [address] Consult Reading Room [facility] signed by: NATALIO SANTILLAN M.D. on 06/16/2018 07:59 AM POCT- GLUCOSE [id number] 07:05:00* Test Item Value Reference Range Interpretation Comments POC-GLUCOSE METER (BEAKER) (test code = 1538) 114 mg/dL 70-110 H TESTED AT [facility] [address] [place] [address] POCT-GLUCOSE [id number] 05:09:00* Test Item Value Reference Range Interpretation Comments POC-GLUCOSE METER (BEAKER) (test code = 1538) 120 mg/dL 70-110 H TESTED AT [address] [address] HEPATIC FUNCTION [id number] 04:53:00* Test Item Value Reference Range Interpretation [...] 347) 138 U/L 6-55 H Specimen markedly [id number] 04:30:00* Test Item Value Reference Range Interpretation Comments MAGNESIUM (BEAKER) (test code = 627) 2.3 mg/dL 1.6-2.6 BASIC METABOLIC [id number] 04:30:00* Test Item Value Reference Range Interpretation [...] NOT APPLICABLE FOR DIALYSIS PATIENTS. Specimen markedly [id number] 04:14:00* Test Item Value Reference Range Interpretation Comments PARTIAL THROMBOPLASTIN TIME (BEAKER) (test code = 760) 48.2 seconds 22.5-36.0 H PROTHROMBIN [id number] 04:13:00* Test Item Value Reference Range Interpretation [...] pat ients with mechanical heart valves.LACTIC ACID, [id number] 04:08:00* Test Item Value Reference Range Interpretation Comments LACTATE BLOOD ARTERIAL (2) (BEAKER) (test code = 2874) 0.9 mmol/L 0.5-2.2 Specimen markedly ictericBLOOD GAS, [id number] 03:51:00* Test Item Value Reference Range Interpretation [...] (test code = 1819) 40.0 % CALCIUM, [id number] 03:49:00* Test Item Value Reference Range Interpretation Comments CALCIUM IONIZED (BEAKER) (test code = 698) 1.13 mmol/L 1.12-1.27 PH, BLOOD (BEAKER) (test code = 1810) 7.52 Check serum Ionized Calcium level after 4 hours after IV Calcium replacement. POCT-GLUCOSE [id number] 02:50:00* Test Item Value Reference Range Interpretation Comments POC-GLUCOSE METER (BEAKER) (test code = 1538) 132 mg/dL 70-110 H TESTED AT [address] [address] POCT-GLUCOSE [id number] 01:18:00* Test Item Value Reference Range Interpretation Comments POC-GLUCOSE METER (BEAKER) (test code = 1538) 137 mg/dL 70-110 H TESTED AT [address] [address] POCT-GLUCOSE [id number] 00:07:00* Test Item Value Reference Range Interpretation Comments POC-GLUCOSE METER (BEAKER) (test code = 1538) 131 mg/dL 70-110 H TESTED AT [address] [address] BLOOD GAS, [id number] 22:54:00* Test Item Value Reference Range Interpretation [...] (test code = 1819) 40.0 % POCT-GLUCOSE [id number] 22:51:00* Test Item Value Reference Range Interpretation Comments POC-GLUCOSE METER (BEAKER) (test code = 1538) 167 mg/dL 70-110 H TESTED AT [address] [address] [id number] 22:08:00* Test Item Value Reference Range Interpretation Comments POTASSIUM (BEAKER) (test code = 379) 3.9 meq/L 3.5-5.1 PRN - repeat potassium levels every 1 hour until glucose level is less than 450 mg/[id number] 22:08:00* Test Item Value Reference Range Interpretation Comments MAGNESIUM (BEAKER) (test code = 627) 2.3 mg/dL 1.6-2.6 PRN - repeat potassium levels every 1 hour until glucose level is less than 450 mg/dLPOCT-GLUCOSE [id number] 22:00:00* Test Item Value Reference Range Interpretation Comments POC-GLUCOSE METER (BEAKER) (test code = 1538) 126 mg/dL 70-110 H TESTED AT [address] [address] HEMOGLOBIN AND [id number] 21:56:00* Test Item Value Reference Range Interpretation Comments HEMOGLOBIN (BEAKER) (test code = 410) 8.4 GM/DL 13.7-17.5 L HEMATOCRIT (BEAKER) (test code = 411) 26.0 % 40.1-51.0 L CALCIUM, [id number] 21:53:00* Test Item Value Reference Range Interpretation Comments CALCIUM IONIZED (BEAKER) (test code = 698) 1.10 mmol/L 1.12-1.27 L PH, BLOOD (BEAKER) (test code = 1810) 7.50 Check serum Ionized Calcium level after 4 hours after IV Calcium replacement. POCT-GLUCOSE [id number] 20:41:00* Test Item Value Reference Range Interpretation Comments POC-GLUCOSE METER (BEAKER) (test code = 1538) 90 mg/dL 70-110 TESTED AT [address] [address] BLOOD GAS, [id number] 18:42:00* Test Item Value Reference Range Interpretation [...] (test code = 1819) 50.0 % POCT-GLUCOSE [id number] 17:49:00* Test Item Value Reference Range Interpretation Comments POC-GLUCOSE METER (BEAKER) (test code = 1538) 125 mg/dL 70-110 H TESTED AT [facility] [address] [facility] [address] BASIC METABOLIC [id number] 17:46:00* Test Item Value Reference Range Interpretation [...] FOR DIALYSIS PATIENTS. Specimen markedly ictericBLOOD GAS, [id number] 17:35:00* Test Item Value Reference Range Interpretation [...] (test code = 1819) 50.0 % POCT-GLUCOSE [id number] 15:27:00* Test Item Value Reference Range Interpretation Comments POC-GLUCOSE METER (BEAKER) (test code = 1538) 138 mg/dL 70-110 H TESTED AT [facility] [address] [facility] [address] [id number] 13:59:00* Test Item Value Reference Range Interpretation Comments MAGNESIUM (BEAKER) (test code = 627) 2.1 mg/dL 1.6-2.6 BASIC METABOLIC [id number] 13:59:00* Test Item Value Reference Range Interpretation [...] FOR DIALYSIS PATIENTS. Specimen markedly ictericBLOOD GAS, [id number] 13:40:00* Test Item Value Reference Range Interpretation [...] code = 1819) 50.0 % HEMOGLOBIN AND [id number] 13:40:00* Test Item Value Reference Range Interpretation Comments HEMOGLOBIN (BEAKER) (test code = 410) 7.4 GM/DL 13.7-17.5 L HEMATOCRIT (BEAKER) (test code = 411) 23.5 % 40.1-51.0 L Please collect after PRBCs doneRAD, CHEST, 1 VIEW, NON [id number] 11:32:00 Reason for exam:->Pulmonary edema evaluationShould this [...] feeding tube again demonstrated. Signed: Natalio Santillan [facility] Verified Date/Time: 06/15/2018 11:32:52 Reading Location: [facility] B1 [id number] Consult Reading Room -GLUCOSE [id number] 10:50:00* Test Item Value Reference Range Interpretation Comments POC-GLUCOSE METER (BEAKER) (test code = 1538) 107 mg/dL 70-110 TESTED AT [facility] [address] [place] [address] CBC W/PLT COUNT & AUTO [id number] 09:04:00* Test Item Value Reference Range Interpretation [...] quate Received comment: User comments: Slide comments: [id number] 08:43:00* Test Item Value Reference Range Interpretation Comments POTASSIUM (BEAKER) (test code = 379) 3.9 meq/L 3.5-5.1 PRN - repeat glucose levels every 1 hour or as specified by insulin titration or ders until glucose level is less than 450 mg/dLCheck Serum Potassium level 2 roxy rs after oral potassium replacement completed or 30 min after intravenous potass ium replacement.[id number] 08:43:00* Test Item Value Reference Range Interpretation Comments GLUCOSE RANDOM (BEAKER) (test code = 652) 123 mg/dL 70-105 H PRN - repeat glucose levels every 1 hour or as specified by insulin titration or ders until glucose level is less than 450 mg/dLCheck Serum Potassium level 2 roxy rs after oral potassium replacement completed or 30 min after intravenous potass ium replacement.HEMOGLOBIN AND [id number] 07:05:00* Test Item Value Reference Range Interpretation Comments HEMOGLOBIN (BEAKER) (test code = 410) 6.6 GM/DL 13.7-17.5 L HEMATOCRIT (BEAKER) (test code = 411) 21.3 % 40.1-51.0 L POCT-GLUCOSE [id number] 06:52:00* Test Item Value Reference Range Interpretation Comments POC-GLUCOSE METER (BEAKER) (test code = 1538) 117 mg/dL 70-110 H TESTED AT [facility] [address] [facility] [address] CALCIUM, [id number] 04:47:00* Test Item Value Reference Range Interpretation Comments CALCIUM IONIZED (BEAKER) (test code = 698) 1.10 mmol/L 1.12-1.27 L PH, BLOOD (BEAKER) (test code = 1810) 7.48 Check serum Ionized Calcium level after 4 hours after IV Calcium replacement. BLOOD GAS, [id number] 04:47:00* Test Item Value Reference Range Interpretation [...] code = 1819) 50.0 % BASIC METABOLIC [id number] 04:27:00* Test Item Value Reference Range Interpretation [...] NOT APPLICABLE FOR DIALYSIS PATIENTS. Specimen markedly [id number] 04:15:00* Test Item Value Reference Range Interpretation Comments MAGNESIUM (BEAKER) (test code = 627) 2.4 mg/dL 1.6-2.6 HEPATIC FUNCTION [id number] 04:15:00* Test Item Value Reference Range Interpretation [...] 134 U/L 6-55 H Specimen markedly ictericPOCT-GLUCOSE [id number] 04:02:00* Test Item Value Reference Range Interpretation Comments POC-GLUCOSE METER (BEAKER) (test code = 1538) 107 mg/dL 70-110 TESTED AT [facility] [address] [facility] [address] [id number] 03:59:00* Test Item Value Reference Range Interpretation Comments PARTIAL THROMBOPLASTIN TIME (BEAKER) (test code = 760) 54.6 seconds 22.5-36.0 H PROTHROMBIN [id number] 03:58:00* Test Item Value Reference Range Interpretation [...] pat ients with mechanical heart valves.LACTIC ACID, [id number] 03:56:00* Test Item Value Reference Range Interpretation Comments LACTATE BLOOD ARTERIAL (2) (BEAKER) (test code = 2874) 1.1 mmol/L 0.5-2.2 Specimen markedly ictericPOCT-GLUCOSE [id number] 03:10:00* Test Item Value Reference Range Interpretation Comments POC-GLUCOSE METER (BEAKER) (test code = 1538) 118 mg/dL 70-110 H TESTED AT [address] [address] POCT-GLUCOSE [id number] 02:11:00* Test Item Value Reference Range Interpretation Comments POC-GLUCOSE METER (BEAKER) (test code = 1538) 112 mg/dL 70-110 H TESTED AT [address] [address] POCT-GLUCOSE [id number] 01:28:00* Test Item Value Reference Range Interpretation Comments POC-GLUCOSE METER (BEAKER) (test code = 1538) 126 mg/dL 70-110 H TESTED AT [address] [address] BASIC METABOLIC [id number] 00:27:00* Test Item Value Reference Range Interpretation [...] APPLICABLE FOR DIALYSIS PATIENTS. Specimen markedly ictericPOCT-GLUCOSE [id number] 00:22:00* Test Item Value Reference Range Interpretation Comments POC-GLUCOSE METER (BEAKER) (test code = 1538) 155 mg/dL 70-110 H TESTED AT [facility] [address] [facility] [address] POCT-GLUCOSE [id number] 23:18:00* Test Item Value Reference Range Interpretation Comments POC-GLUCOSE METER (BEAKER) (test code = 1538) 168 mg/dL 70-110 H TESTED AT [facility] [address] [facility] [address] POCT-GLUCOSE [id number] 22:13:00* Test Item Value Reference Range Interpretation Comments POC-GLUCOSE METER (BEAKER) (test code = 1538) 171 mg/dL 70-110 H TESTED AT [facility] [address] [facility] [address] [id number] 21:19:00* Test Item Value Reference Range Interpretation Comments MAGNESIUM (BEAKER) (test code = 627) 2.5 mg/dL 1.6-2.6 POCT-GLUCOSE [id number] 21:14:00* Test Item Value Reference Range Interpretation Comments POC-GLUCOSE METER (BEAKER) (test code = 1538) 166 mg/dL 70-110 H TESTED AT [place] [id number] [facility] [address] CALCIUM, [id number] 21:03:00* Test Item Value Reference Range Interpretation Comments CALCIUM IONIZED (BEAKER) (test code = 698) 1.07 mmol/L 1.12-1.27 L PH, BLOOD (BEAKER) (test code = 1810) 7.52 Check serum Ionized Calcium level after 4 hours after IV Calcium replacement. POCT-GLUCOSE [id number] 20:12:00* Test Item Value Reference Range Interpretation Comments POC-GLUCOSE METER (BEAKER) (test code = 1538) 172 mg/dL 70-110 H TESTED AT [address] [address] POCT-GLUCOSE [id number] 18:57:00* Test Item Value Reference Range Interpretation Comments POC-GLUCOSE METER (BEAKER) (test code = 1538) 158 mg/dL 70-110 H TESTED AT [address] [address] POCT-GLUCOSE [id number] 18:57:00* Test Item Value Reference Range Interpretation Comments POC-GLUCOSE METER (BEAKER) (test code = 1538) 172 mg/dL 70-110 H TESTED AT [address] [address] POCT-GLUCOSE [id number] 18:57:00* Test Item Value Reference Range Interpretation Comments POC-GLUCOSE METER (BEAKER) (test code = 1538) 139 mg/dL 70-110 H TESTED AT [address] [address] POCT-GLUCOSE [id number] 18:57:00* Test Item Value Reference Range Interpretation Comments POC-GLUCOSE METER (BEAKER) (test code = 1538) 98 mg/dL 70-110 TESTED AT [address] [address] BASIC METABOLIC [id number] 18:53:00* Test Item Value Reference Range Interpretation [...] FOR DIALYSIS PATIENTS. Specimen markedly ictericEBV VIRAL [id number] 17:58:00* Test Item Value Reference Range Interpretation Comments EBV VIRAL LOAD - NEGATIVE (BEAKER) (test code = 2559) Negative or below the linear range of the assay (<500 copies/mL) This assay was performed by real-time PCR for the detection of the Alex-Mea virus (EBV) gene EBNA-1. The test is composed of (1) DNA extraction from patien t specimen, and (2) real-time PCR amplification and detection with VALM-4-svsycu ic primers and probes. A well-conserved region [...] its performance characteristic s determined by the [facility] Pathology Department, Section of varinder Pathology. It has not been cleared or approved by the U.[place]. Food and Zach g Administration (FDA), since FDA approval is not required for clinical use of t he test. Validation was done as required by The Clinical Laboratory Improvement Amendments of 1988.POCT-GLUCOSE [id number] 14:21:00* Test Item Value Reference Range Interpretation Comments POC-GLUCOSE METER (BEAKER) (test code = 1538) 102 mg/dL 70-110 TESTED AT [facility] [address] [facility] [address] POCT-GLUCOSE [id number] 12:29:00* Test Item Value Reference Range Interpretation Comments POC-GLUCOSE METER (BEAKER) (test code = 1538) 101 mg/dL 70-110 TESTED AT [facility] [address] [facility] [address] BASIC METABOLIC [id number] 11:58:00* Test Item Value Reference Range Interpretation [...] NOT APPLICABLE FOR DIALYSIS PATIENTS. Specimen markedly [id number] 11:55:00* Test Item Value Reference Range Interpretation Comments MAGNESIUM (BEAKER) (test code = 627) 2.8 mg/dL 1.6-2.6 H POCT-GLUCOSE [id number] 11:53:00* Test Item Value Reference Range Interpretation Comments POC-GLUCOSE METER (BEAKER) (test code = 1538) 134 mg/dL 70-110 H TESTED AT [address] [address] POCT-GLUCOSE [id number] 11:53:00* Test Item Value Reference Range Interpretation Comments POC-GLUCOSE METER (BEAKER) (test code = 1538) 134 mg/dL 70-110 H TESTED AT [address] [address] POCT-GLUCOSE [id number] 11:53:00* Test Item Value Reference Range Interpretation Comments POC-GLUCOSE METER (BEAKER) (test code = 1538) 161 mg/dL 70-110 H TESTED AT [address] [address] BLOOD GAS, [id number] 11:41:00* Test Item Value Reference Range Interpretation [...] 50.0 % CBC W/PLT COUNT & AUTO [id number] 10:02:00* Test Item Value Reference Range Interpretation [...] Received comment: User comments: Slide comments: POCT-GLUCOSE [id number] 09:09:00* Test Item Value Reference Range Interpretation Comments POC-GLUCOSE METER (BEAKER) (test code = 1538) 159 mg/dL 70-110 H TESTED AT [facility] [address] [facility] [address] POCT-GLUCOSE [id number] 08:09:00* Test Item Value Reference Range Interpretation Comments POC-GLUCOSE METER (BEAKER) (test code = 1538) 178 mg/dL 70-110 H TESTED AT [facility] [address] [facility] [address] RAD, CHEST, 1 VIEW, NON [id number] 07:32:00Reason for exam:->respiratory insufficiencyShould this be performed [...] positioned and unchanged. Impression:No change Signed: Digna Rogelepjane Verified Date/Time: 06/14/2018 07:32:08 Reading Location: [facility] Radiology Reading Room [id number] 06:43:00* Test Item Value Reference Range Interpretation Comments PARTIAL THROMBOPLASTIN TIME (BEAKER) (test code = 760) 45.8 seconds 22.5-36.0 H PROTHROMBIN [id number] 06:42:00* Test Item Value Reference Range Interpretation [...] pat ients with mechanical heart valves.BASIC METABOLIC [id number] 06:41:00* Test Item Value Reference Range Interpretation [...] APPLICABLE FOR DIALYSIS PATIENTS. Specimen markedly ictericPOCT-GLUCOSE [id number] 06:32:00* Test Item Value Reference Range Interpretation Comments POC-GLUCOSE METER (BEAKER) (test code = 1538) 175 mg/dL 70-110 H TESTED AT [place] [id number] [facility] [address] POCT-GLUCOSE [id number] 05:43:00* Test Item Value Reference Range Interpretation Comments POC-GLUCOSE METER (BEAKER) (test code = 1538) 149 mg/dL 70-110 H TESTED AT [place] [address] [facility] [address] POCT-GLUCOSE [id number] 05:43:00* Test Item Value Reference Range Interpretation Comments POC-GLUCOSE METER (BEAKER) (test code = 1538) 140 mg/dL 70-110 H TESTED AT [place] [address] [facility] [address] BASIC METABOLIC [id number] 04:55:00* Test Item Value Reference Range Interpretation [...] FOR DIALYSIS PATIENTS. Specimen markedly ictericBLOOD GAS, [id number] 04:37:00* Test Item Value Reference Range Interpretation [...] code = 1819) 60.0 % BASIC METABOLIC [id number] 04:35:00* Test Item Value Reference Range Interpretation [...] NOT APPLICABLE FOR DIALYSIS PATIENTS. Specimen markedly [id number] 04:25:00* Test Item Value Reference Range Interpretation Comments MAGNESIUM (BEAKER) (test code = 627) 2.4 mg/dL 1.6-2.6 HEPATIC FUNCTION [id number] 04:25:00* Test Item Value Reference Range Interpretation [...] 347) 119 U/L 6-55 H Specimen markedly [id number] 04:25:00* Test Item Value Reference Range Interpretation Comments AMYLASE (BEAKER) (test code = 349) 80 U/L 25-125 Specimen markedly [id number] 04:25:00* Test Item Value Reference Range Interpretation Comments LIPASE (BEAKER) (test code = 749) 222 U/L 8-78 H Specimen markedly ictericLACTIC ACID, [id number] 04:17:00* Test Item Value Reference Range Interpretation Comments LACTATE BLOOD ARTERIAL (2) (BEAKER) (test code = 2874) 0.8 mmol/L 0.5-2.2 Specimen markedly ictericPOCT-GLUCOSE [id number] 02:31:00* Test Item Value Reference Range Interpretation Comments POC-GLUCOSE METER (BEAKER) (test code = 1538) 98 mg/dL 70-110 TESTED AT [facility] [address] [facility] [address] POCT-GLUCOSE [id number] 01:45:00* Test Item Value Reference Range Interpretation Comments POC-GLUCOSE METER (BEAKER) (test code = 1538) 120 mg/dL 70-110 H TESTED AT [facility] [address] [facility] [address] POCT-GLUCOSE [id number] 01:45:00* Test Item Value Reference Range Interpretation Comments POC-GLUCOSE METER (BEAKER) (test code = 1538) 171 mg/dL 70-110 H TESTED AT [place] [id number] [facility] [address] [address], CHEST, WITHOUT [id number] 00:56:00FINAL REPORT EXAM: CT of the chest, [...] MDReport Verified Date/Time: 06/14/2018 00:56:49 Reading Location: [facility] C013Y CT Body Reading Room Amada ctronically signed by: NICOLÁS CEBALLOS MD on 06/14/2018 12:[address], [id number] 00:56:00With PO contrastFINAL REPORT EXAM: CT of [...] air or fluid collection. Signed: Nicolás Ceballos Verified Date/Time: 06/14/2018 00:56:49 Reading Location: [facility] B1 C013Y CT Body Reading Room Amada ctronically signed by: NICOLÁS CEBALLOS MD on 06/14/2018 12:56 AM POCT- GLUCOSE [id number] 23:12:00* Test Item Value Reference Range Interpretation Comments POC-GLUCOSE METER (BEAKER) (test code = 1538) 200 mg/dL 70-110 H TESTED AT [facility] [address] [facility] [address] POCT-GLUCOSE [id number] 23:12:00* Test Item Value Reference Range Interpretation Comments POC-GLUCOSE METER (BEAKER) (test code = 1538) 132 mg/dL 70-110 H TESTED AT [address] [address] [id number] 21:11:00* Test Item Value Reference Range Interpretation Comments MAGNESIUM (BEAKER) (test code = 627) 2.5 mg/dL 1.6-2.6 POCT-GLUCOSE [id number] 20:48:00* Test Item Value Reference Range Interpretation Comments POC-GLUCOSE METER (BEAKER) (test code = 1538) 103 mg/dL 70-110 TESTED AT [address] [address] POCT-GLUCOSE [id number] 20:48:00* Test Item Value Reference Range Interpretation Comments POC-GLUCOSE METER (BEAKER) (test code = 1538) 98 mg/dL 70-110 TESTED AT [address] [address] POCT-GLUCOSE [id number] 18:14:00* Test Item Value Reference Range Interpretation Comments POC-GLUCOSE METER (BEAKER) (test code = 1538) 108 mg/dL 70-110 TESTED AT [address] [address] BASIC METABOLIC [id number] 18:09:00* Test Item Value Reference Range Interpretation [...] FOR DIALYSIS PATIENTS. Specimen markedly ictericBLOOD GAS, [id number] 16:57:00* Test Item Value Reference Range Interpretation [...] (test code = 1819) 40.0 % POCT-GLUCOSE [id number] 16:51:00* Test Item Value Reference Range Interpretation Comments POC-GLUCOSE METER (BEAKER) (test code = 1538) 107 mg/dL 70-110 TESTED AT [facility] [address] [facility] [address] CMV PCR, [id number] 16:28:00* Test Item Value Reference Range Interpretation [...] its performance characteristics determined by [facility] Pathology Department, Section of Molecular Patholog y. It has not been cleared or approved by the U.S. Food and Drug Administration (FDA), since FDA approval is not required for clinical use of the test. Validati on was done as required by The Clinical Laboratory Improvement Amendments of 198 8.POCT-GLUCOSE [id number] 15:09:00* Test Item Value Reference Range Interpretation Comments POC-GLUCOSE METER (BEAKER) (test code = 1538) 119 mg/dL 70-110 H TESTED AT [place] [id number] [facility] [address] POCT-GLUCOSE [id number] 14:43:00* Test Item Value Reference Range Interpretation Comments POC-GLUCOSE METER (BEAKER) (test code = 1538) 129 mg/dL 70-110 H TESTED AT [address] [address] BASIC METABOLIC [id number] 13:25:00* Test Item Value Reference Range Interpretation [...] APPLICABLE FOR DIALYSIS PATIENTS. Specimen markedly ictericPOCT-GLUCOSE [id number] 13:23:00* Test Item Value Reference Range Interpretation Comments POC-GLUCOSE METER (BEAKER) (test code = 1538) 172 mg/dL 70-110 H TESTED AT [address] [address] [id number] 13:14:00* Test Item Value Reference Range Interpretation Comments MAGNESIUM (BEAKER) (test code = 627) 2.6 mg/dL 1.6-2.6 Specimen slightly hemolyzed POCT-GLUCOSE [id number] 12:04:00* Test Item Value Reference Range Interpretation Comments POC-GLUCOSE METER (BEAKER) (test code = 1538) 205 mg/dL 70-110 H TESTED AT [address] [address] POCT-GLUCOSE [id number] 11:10:00* Test Item Value Reference Range Interpretation Comments POC-GLUCOSE METER (BEAKER) (test code = 1538) 182 mg/dL 70-110 H TESTED AT [address] [address] BLOOD GAS, [id number] 10:41:00* Test Item Value Reference Range Interpretation [...] (test code = 1819) 100.0 % POCT-GLUCOSE [id number] 09:50:00* Test Item Value Reference Range Interpretation Comments POC-GLUCOSE METER (BEAKER) (test code = 1538) 138 mg/dL 70-110 H TESTED AT [address] [address] POCT-GLUCOSE [id number] 08:44:00* Test Item Value Reference Range Interpretation Comments POC-GLUCOSE METER (BEAKER) (test code = 1538) 98 mg/dL 70-110 TESTED AT [address] [address] BLOOD GAS, [id number] 06:47:00* Test Item Value Reference Range Interpretation [...] (test code = 1819) 80.0 % POCT-GLUCOSE [id number] 06:41:00* Test Item Value Reference Range Interpretation Comments POC-GLUCOSE METER (BEAKER) (test code = 1538) 123 mg/dL 70-110 H TESTED AT [address] [address] POCT-GLUCOSE [id number] 06:41:00* Test Item Value Reference Range Interpretation Comments POC-GLUCOSE METER (BEAKER) (test code = 1538) 121 mg/dL 70-110 H TESTED AT [address] [address] BASIC METABOLIC [id number] 06:25:00* Test Item Value Reference Range Interpretation [...] FOR DIALYSIS PATIENTS. Specimen markedly ictericBASIC METABOLIC [id number] 03:47:00* Test Item Value Reference Range Interpretation [...] NOT APPLICABLE FOR DIALYSIS PATIENTS. Specimen markedly [id number] 03:41:00* Test Item Value Reference Range Interpretation Comments MAGNESIUM (BEAKER) (test code = 627) 2.7 mg/dL 1.6-2.6 H HEPATIC FUNCTION [id number] 03:41:00* Test Item Value Reference Range Interpretation [...] 347) 104 U/L 6-55 H Specimen markedly [id number] 03:39:00* Test Item Value Reference Range Interpretation Comments PARTIAL THROMBOPLASTIN TIME (BEAKER) (test code = 760) 48.3 seconds 22.5-36.0 H PROTHROMBIN [id number] 03:38:00* Test Item Value Reference Range Interpretation [...] pat ients with mechanical heart valves.LACTIC ACID, [id number] 03:31:00* Test Item Value Reference Range Interpretation Comments LACTATE BLOOD ARTERIAL (2) (BEAKER) (test code = 2874) 0.8 mmol/L 0.5-2.2 Specimen markedly ictericCBC W/PLT COUNT & AUTO [id number] 03:24:00 * Test Item Value Reference Range [...] = 2801) 3 % 0-1 H POCT-GLUCOSE [id number] 03:06:00* Test Item Value Reference Range Interpretation Comments POC-GLUCOSE METER (BEAKER) (test code = 1538) 155 mg/dL 70-110 H TESTED AT [facility] [address] [facility] [address] BASIC METABOLIC [id number] 02:44:00* Test Item Value Reference Range Interpretation [...] FOR DIALYSIS PATIENTS. Specimen markedly ictericBLOOD GAS, [id number] 02:08:00* Test Item Value Reference Range Interpretation [...] 100.0 % RAD, CHEST, 1 VIEW, NON [id number] 01:40:00Reason for exam:->decreased lung sounds; possible aspirationShould this be performed at the bedside?->YesFINAL REPORT CLINICAL INDICATION: Decreased lung sounds, concern for aspiration Comparison: 06/12/2018 The cardiomediastinal contours are stable. The lung volumes remain low. Central pulmonary vascular congestion and bilateral parenchymal opacities are unchanged. There is no pneumothorax. Support lines are stable. Signed: Katherine Reich MDReport Verified Date/Time: 06/14/19 01:40:10 Reading Location: [address] Reading Room Electron ically signed by: KATHERINE REICH M.D. on 06/13/2018 01:40 AM RAD, ABDOMEN/KUB, 1 VIEW [id number] 01:37:00Reason for exam:->distended abdomenShould this be performed [...] MDReport Verified Date/Time: 06/13/2018 01:37:29 Reading Location: [address] Reading Room -GLUCOSE [id number] 00:36:00* Test Item Value Reference Range Interpretation Comments POC-GLUCOSE METER (BEAKER) (test code = 1538) 192 mg/dL 70-110 H TESTED AT [address] [address] OCCULT BLOOD, [id number] 22:31:00* Test Item Value Reference Range Interpretation Comments FECAL OCCULT BLOOD (BEAKER) (test code = 618) Positive Negative A [id number] 21:12:00* Test Item Value Reference Range Interpretation Comments MAGNESIUM (BEAKER) (test code = 627) 2.4 mg/dL 1.6-2.6 POCT-GLUCOSE [id number] 20:34:00* Test Item Value Reference Range Interpretation Comments POC-GLUCOSE METER (BEAKER) (test code = 1538) 160 mg/dL 70-110 H TESTED AT [place] [id number] [facility] [address] BASIC METABOLIC [id number] 18:27:00* Test Item Value Reference Range Interpretation [...] APPLICABLE FOR DIALYSIS PATIENTS. Specimen markedly ictericPOCT-GLUCOSE [id number] 17:35:00* Test Item Value Reference Range Interpretation Comments POC-GLUCOSE METER (BEAKER) (test code = 1538) 136 mg/dL 70-110 H TESTED AT [place] [id number] [facility] [address] BLOOD GAS, [id number] 16:12:00* Test Item Value Reference Range Interpretation [...] (test code = 1819) 40.0 % POCT-GLUCOSE [id number] 14:51:00* Test Item Value Reference Range Interpretation Comments POC-GLUCOSE METER (BEAKER) (test code = 1538) 137 mg/dL 70-110 H TESTED AT [facility] [address] [facility] [address] POCT-GLUCOSE [id number] 13:23:00* Test Item Value Reference Range Interpretation Comments POC-GLUCOSE METER (BEAKER) (test code = 1538) 132 mg/dL 70-110 H TESTED AT [address] [address] BLOOD GAS, [id number] 13:13:00* Test Item Value Reference Range Interpretation [...] code = 1819) 40.0 % BASIC METABOLIC [id number] 13:08:00* Test Item Value Reference Range Interpretation [...] NOT APPLICABLE FOR DIALYSIS PATIENTS. Specimen markedly [id number] 13:04:00* Test Item Value Reference Range Interpretation Comments MAGNESIUM (BEAKER) (test code = 627) 2.6 mg/dL 1.6-2.6 POCT-GLUCOSE [id number] 12:17:00* Test Item Value Reference Range Interpretation Comments POC-GLUCOSE METER (BEAKER) (test code = 1538) 123 mg/dL 70-110 H TESTED AT [address] [address] POCT-GLUCOSE [id number] 11:33:00* Test Item Value Reference Range Interpretation Comments POC-GLUCOSE METER (BEAKER) (test code = 1538) 133 mg/dL 70-110 H TESTED AT [address] [address] POCT-GLUCOSE [id number] 10:10:00* Test Item Value Reference Range Interpretation Comments POC-GLUCOSE METER (BEAKER) (test code = 1538) 151 mg/dL 70-110 H TESTED AT [address] [address] POCT-GLUCOSE [id number] 09:07:00* Test Item Value Reference Range Interpretation Comments POC-GLUCOSE METER (BEAKER) (test code = 1538) 155 mg/dL 70-110 H TESTED AT [address] [address] POCT-GLUCOSE [id number] 08:05:00* Test Item Value Reference Range Interpretation Comments POC-GLUCOSE METER (BEAKER) (test code = 1538) 143 mg/dL 70-110 H TESTED AT [address] [address] CBC W/PLT COUNT & AUTO [id number] 07:31:00* Test Item Value Reference Range Interpretation [...] LATION PRESENT RAD, CHEST, 1 VIEW, NON [id number] 06:50:00Reason for exam:-> respiratory insufficiencyShould this be [...] MDReport Verified Date/Time: 06/12/2018 06:50:17 Reading Location: [facility] B1 C0 13V Neuro Reading Room Electronically signed by: ADRI AVENDAÑO MD o n 06/12/2018 06:50 AM POCT-GLUCOSE [id number] 06:23:00* Test Item Value Reference Range Interpretation Comments POC-GLUCOSE METER (BEAKER) (test code = 1538) 161 mg/dL 70-110 H TESTED AT [facility] [address] [facility] [address] POCT-GLUCOSE [id number] 05:09:00* Test Item Value Reference Range Interpretation Comments POC-GLUCOSE METER (BEAKER) (test code = 1538) 177 mg/dL 70-110 H TESTED AT [facility] [address] [facility] [address] POCT-GLUCOSE [id number] 05:09:00* Test Item Value Reference Range Interpretation Comments POC-GLUCOSE METER (BEAKER) (test code = 1538) 188 mg/dL 70-110 H TESTED AT [facility] [address] [facility] [address] BLOOD GAS, [id number] 04:41:00* Test Item Value Reference Range Interpretation [...] (test code = 1819) 50.0 % CALCIUM, [id number] 04:41:00* Test Item Value Reference Range Interpretation Comments CALCIUM IONIZED (BEAKER) (test code = 698) 1.08 mmol/L 1.12-1.27 L PH, BLOOD (BEAKER) (test code = 1810) 7.44 BASIC METABOLIC [id number] 04:24:00* Test Item Value Reference Range Interpretation [...] NOT APPLICABLE FOR DIALYSIS PATIENTS. Specimen markedly [id number] 04:23:00* Test Item Value Reference Range Interpretation Comments PHOSPHORUS (BEAKER) (test code = 604) 5.0 mg/dL 2.3-4.7 H [id number] 04:23:00* Test Item Value Reference Range Interpretation Comments MAGNESIUM (BEAKER) (test code = 627) 2.8 mg/dL 1.6-2.6 H HEPATIC FUNCTION [id number] 04:23:00* Test Item Value Reference Range Interpretation [...] 347) 96 U/L 6-55 H Specimen markedly [id number] 04:22:00* Test Item Value Reference Range Interpretation Comments PARTIAL THROMBOPLASTIN TIME (BEAKER) (test code = 760) 54.7 seconds 22.5-36.0 H PROTHROMBIN [id number] 04:21:00* Test Item Value Reference Range Interpretation [...] pat ients with mechanical heart valves.LACTIC ACID, [id number] 04:15:00* Test Item Value Reference Range Interpretation Comments LACTATE BLOOD ARTERIAL (2) (BEAKER) (test code = 2874) 0.9 mmol/L 0.5-2.2 Specimen slightly hemolyzed Specimen markedly [id number] 02:06:00* Test Item Value Reference Range Interpretation Comments POTASSIUM (BEAKER) (test code = 379) 3.5 meq/L 3.5-5.1 [id number] 02:06:00* Test Item Value Reference Range Interpretation Comments GLUCOSE RANDOM (BEAKER) (test code = 652) 225 mg/dL 70-105 H BASIC METABOLIC [id number] 00:30:00* Test Item Value Reference Range Interpretation [...] APPLICABLE FOR DIALYSIS PATIENTS. Specimen markedly ictericPOCT-GLUCOSE [id number] 00:28:00* Test Item Value Reference Range Interpretation Comments POC-GLUCOSE METER (BEAKER) (test code = 1538) 245 mg/dL 70-110 H TESTED AT [facility] [address] [facility] [address] BLOOD GAS, [id number] 22:23:00* Test Item Value Reference Range Interpretation [...] code = 1819) 50.0 % BASIC METABOLIC [id number] 20:15:00* Test Item Value Reference Range Interpretation [...] NOT APPLICABLE FOR DIALYSIS PATIENTS. Specimen markedly [id number] 20:07:00* Test Item Value Reference Range Interpretation Comments MAGNESIUM (BEAKER) (test code = 627) 2.6 mg/dL 1.6-2.6 RAD, CHEST, 1 VIEW, NON [id number] 19:02:00Reason for exam:->new right IJ lineShould this [...] MDReport Verified Date/Time: 06/11/2018 19:02:45 Reading Location: [facility] Consult Reading Room C METABOLIC [id number] 15:15:00* Test Item Value Reference Range Interpretation [...] NOT APPLICABLE FOR DIALYSIS PATIENTS. Specimen markedly [id number] 15:09:00* Test Item Value Reference Range Interpretation Comments MAGNESIUM (BEAKER) (test code = 627) 2.6 mg/dL 1.6-2.6 POCT-GLUCOSE [id number] 13:44:00* Test Item Value Reference Range Interpretation Comments POC-GLUCOSE METER (BEAKER) (test code = 1538) 226 mg/dL 70-110 H TESTED AT [facility] [address] [facility] [address] SPIN/CONCENTRATION [id number] 12:22:00* Test Item Value Reference Range Interpretation Comments CONCENTRATION CHARGED (BEAKER) (test code = 2657) Done RAD, CHEST, 1 VIEW, NON [id number] 07:49:00Reason for exam:->pulmonary edemaShould this be performed [...] pneu mothorax or large effusion. Signed: Gela Rodriguezepjane Verified Date/Time: 06/11 07:49:11 Reading Location: [facility] Radiology Reading Room Amada ctronically signed by: GELA RODRIGUEZ M.D. on 06/11/2018 07:49 AM LACTIC ACID, [id number] 04:44:00* Test Item Value Reference Range Interpretation Comments LACTATE BLOOD ARTERIAL (2) (BEAKER) (test code = 2874) 0.9 mmol/L 0.5-2.2 Specimen markedly ictericBASIC METABOLIC [id number] 04:39:00* Test Item Value Reference Range Interpretation [...] NOT APPLICABLE FOR DIALYSIS PATIENTS. Specimen markedly [id number] 04:38:00* Test Item Value Reference Range Interpretation Comments PHOSPHORUS (BEAKER) (test code = 604) 6.5 mg/dL 2.3-4.7 H [id number] 04:38:00* Test Item Value Reference Range Interpretation Comments MAGNESIUM (BEAKER) (test code = 627) 2.7 mg/dL 1.6-2.6 H HEPATIC FUNCTION [id number] 04:38:00* Test Item Value Reference Range Interpretation [...] code = 380) 116 U/L 29-20 0 [id number] 04:33:00* Test Item Value Reference Range Interpretation Comments PARTIAL THROMBOPLASTIN TIME (BEAKER) (test code = 760) 50.5 seconds 22.5-36.0 H PROTHROMBIN [id number] 04:32:00* Test Item Value Reference Range Interpretation [...] mechanical heart valves.CBC W/PLT COUNT & AUTO [id number] 04:29:00* Test Item Value Reference Range Interpretation [...] = 2801) 5 % 0-1 H CALCIUM, [id number] 04:29:00* Test Item Value Reference Range Interpretation Comments CALCIUM IONIZED (BEAKER) (test code = 698) 1.05 mmol/L 1.12-1.27 L PH, BLOOD (BEAKER) (test code = 1810) 7.42 BLOOD GAS, [id number] 04:25:00* Test Item Value Reference Range Interpretation [...] code = 1819) 60.0 % BASIC METABOLIC [id number] 22:15:00* Test Item Value Reference Range Interpretation [...] GFR IS NOT APPLICABLE FOR DIALYSIS PATIENTS. [id number] 21:07:00* Test Item Value Reference Range Interpretation Comments MAGNESIUM (BEAKER) (test code = 627) 2.8 mg/dL 1.6-2.6 H Specimen slightly hemolyzed BASIC METABOLIC [id number] 18:32:00* Test Item Value Reference Range Interpretation [...] FOR DIALYSIS PATIENTS. Specimen markedly ictericBASIC METABOLIC [id number] 12:06:00* Test Item Value Reference Range Interpretation [...] NOT APPLICABLE FOR DIALYSIS PATIENTS. Specimen markedly [id number] 11:59:00* Test Item Value Reference Range Interpretation Comments MAGNESIUM (BEAKER) (test code = 627) 2.4 mg/dL 1.6-2.6 POCT-GLUCOSE [id number] 11:58:00* Test Item Value Reference Range Interpretation Comments POC-GLUCOSE METER (BEAKER) (test code = 1538) 143 mg/dL 70-110 H TESTED AT [address] [address] BRONCHIAL CULTURE + GRAM [id number] 09:24:00* Test Item Value Reference Range Interpretation Comments CULTURE (BEAKER) (test code = 1095) No growth GRAM STAIN RESULT (BEAKER) (test code = 1123) 1+ WBCs GRAM STAIN RESULT (BEAKER) (test code = 11906) No organisms seen SPUTUM CULTURE + GRAM [id number] 09:24:00* Test Item Value Reference Range Interpretation Comments CULTURE (BEAKER) (test code = 1095) No growth GRAM STAIN RESULT (BEAKER) (test code = 1123) 1+ WBCs GRAM STAIN RESULT (BEAKER) (test code = 10912) 10-15 epithelial dariel ls GRAM STAIN RESULT (BEAKER) (test code = 17662) <1+ gra m positive cocci in pairs and clusters CBC W/PLT COUNT & AUTO [id number] 08:22:00* Test Item Value Reference Range Interpretation [...] PLATELETS SEEN RAD, CHEST, 1 VIEW, NON [id number] 08:07:00Reason for exam:->pulmonary edemaShould this be performed [...] decrease in interstitial pulmonary edema Signed: Kai Rogel MDReport Verified Date/Time: 06/10/2018 08:07:52 Reading Location: [facility] Radiology Reading Room -GLUCOSE [id number] 05:31:00* Test Item Value Reference Range Interpretation Comments POC-GLUCOSE METER (BEAKER) (test code = 1538) 124 mg/dL 70-110 H TESTED AT [place] [address] BASIC METABOLIC [id number] 04:24:00* Test Item Value Reference Range Interpretation [...] NOT APPLICABLE FOR DIALYSIS PATIENTS. Specimen markedly [id number] 04:16:00* Test Item Value Reference Range Interpretation Comments PARTIAL THROMBOPLASTIN TIME (BEAKER) (test code = 760) 47.0 seconds 22.5-36.0 H PROTHROMBIN [id number] 04:15:00* Test Item Value Reference Range Interpretation Comments PROTIME (BEAKER) (test code = 759) 16.9 seconds 11.7-14.7 H INR (BEAKER) (test code = 370) 1.3 <=5.9 RECOMMENDED COUMADIN/WARFARIN INR THERAPY RANGESSTANDARD DOSE: 2.0 - 3.0 Inclu herb: PROPHYLAXIS for venous thrombosis, systemic embolization; TREATMENT for giulia ous thrombosis and/or pulmonary embolus.HIGH RISK: Target INR is 2.5-3.5 for pat ients with mechanical heart valves.[id number] 04:12:00* Test Item Value Reference Range Interpretation Comments MAGNESIUM (BEAKER) (test code = 627) 2.5 mg/dL 1.6-2.6 HEPATIC FUNCTION [id number] 04:12:00* Test Item Value Reference Range Interpretation [...] U/L 6-55 H Specimen markedly ictericLACTIC ACID, [id number] 03:59:00* Test Item Value Reference Range Interpretation Comments LACTATE BLOOD ARTERIAL (2) (BEAKER) (test code = 2874) 0.9 mmol/L 0.5-2.2 Specimen markedly ictericBLOOD GAS, [id number] 03:21:00* Test Item Value Reference Range Interpretation [...] (test code = 1819) 60.0 % CALCIUM, [id number] 03:19:00* Test Item Value Reference Range Interpretation Comments CALCIUM IONIZED (BEAKER) (test code = 698) 1.12 mmol/L 1.12-1.27 PH, BLOOD (BEAKER) (test code = 1810) 7.44 Check serum Ionized Calcium level after 4 hours after IV Calcium replacement. BASIC METABOLIC [id number] 00:53:00* Test Item Value Reference Range Interpretation [...] APPLICABLE FOR DIALYSIS PATIENTS. Specimen markedly ictericPOCT-GLUCOSE [id number] 00:29:00* Test Item Value Reference Range Interpretation Comments POC-GLUCOSE METER (BEAKER) (test code = 1538) 176 mg/dL 70-110 H TESTED AT [facility] [address] [facility] [address] POCT-GLUCOSE [id number] 21:27:00* Test Item Value Reference Range Interpretation Comments POC-GLUCOSE METER (BEAKER) (test code = 1538) 134 mg/dL 70-110 H TESTED AT [facility] [address] [facility] [address] [id number] 20:56:00* Test Item Value Reference Range Interpretation Comments MAGNESIUM (BEAKER) (test code = 627) 2.2 mg/dL 1.6-2.6 CALCIUM, [id number] 20:46:00* Test Item Value Reference Range Interpretation Comments CALCIUM IONIZED (BEAKER) (test code = 698) 1.08 mmol/L 1.12-1.27 L PH, BLOOD (BEAKER) (test code = 1810) 7.44 BLOOD GAS, [id number] 20:46:00* Test Item Value Reference Range Interpretation [...] (test code = 1819) 60.0 % POCT-GLUCOSE [id number] 20:20:00* Test Item Value Reference Range Interpretation Comments POC-GLUCOSE METER (BEAKER) (test code = 1538) 142 mg/dL 70-110 H TESTED AT [facility] [address] [facility] [address] BASIC METABOLIC [id number] 18:55:00* Test Item Value Reference Range Interpretation [...] PATIENTS. Specimen markedly ictericRAD, ABDOMEN/KUB, 1 VIEW [id number] 17:56:00Reason for exam:->feeding tube placement.FINAL REPORT CLINICAL HISTORY: Feeding tube placement COMPARISON: 06/04/2018 FINDINGS: A single supine view the abdomen is submitted. The tip of a feeding tube overlies expected position of the distal stomach/proximal duodenum. Advancement is recommended if definitive placement in the duodenum is intended. The visualized abdominal bowel gas pattern is unobstructed. There is no acute bony abnormality. Signed: Katherine Reichort Verified Date/Time: 06/09/2018 17:56:44 Reading Location: [address] Reading Room -GLUCOSE [id number] 17:49:00* Test Item Value Reference Range Interpretation Comments POC-GLUCOSE METER (BEAKER) (test code = 1538) 131 mg/dL 70-110 H TESTED AT [place] [id number] [facility] [address] POCT-GLUCOSE [id number] 16:36:00* Test Item Value Reference Range Interpretation Comments POC-GLUCOSE METER (BEAKER) (test code = 1538) 112 mg/dL 70-110 H TESTED AT [facility] [address] [facility] [address] POCT-GLUCOSE [id number] 14:37:00* Test Item Value Reference Range Interpretation Comments POC-GLUCOSE METER (BEAKER) (test code = 1538) 88 mg/dL 70-110 TESTED AT [facility] [address] [facility] [address] POCT-GLUCOSE [id number] 12:48:00* Test Item Value Reference Range Interpretation Comments POC-GLUCOSE METER (BEAKER) (test code = 1538) 104 mg/dL 70-110 TESTED AT [facility] [address] [facility] [address] [id number] 12:46:00* Test Item Value Reference Range Interpretation Comments MAGNESIUM (BEAKER) (test code = 627) 2.3 mg/dL 1.6-2.6 BASIC METABOLIC [id number] 12:46:00* Test Item Value Reference Range Interpretation [...] NOT APPLICABLE FOR DIALYSIS PATIENTS. HEMOGLOBIN AND [id number] 11:59:00* Test Item Value Reference Range Interpretation Comments HEMOGLOBIN (BEAKER) (test code = 410) 8.0 GM/DL 13.7-17.5 L HEMATOCRIT (BEAKER) (test code = 411) 24.8 % 40.1-51.0 L BLOOD GAS, [id number] 11:29:00* Test Item Value Reference Range Interpretation [...] code = 1819) 60.0 % BASIC METABOLIC [id number] 07:54:00* Test Item Value Reference Range Interpretation [...] FOR DIALYSIS PATIENTS. Specimen markedly ictericBLOOD GAS, [id number] 06:45:00* Test Item Value Reference Range Interpretation [...] code = 1819) 75.0 % BASIC METABOLIC [id number] 06:44:00* Test Item Value Reference Range Interpretation [...] APPLICABLE FOR DIALYSIS PATIENTS. Specimen markedly ictericPOCT-GLUCOSE [id number] 06:22:00* Test Item Value Reference Range Interpretation Comments POC-GLUCOSE METER (BEAKER) (test code = 1538) 145 mg/dL 70-110 H TESTED AT [facility] [address] [facility] [address] [id number] 06:17:00* Test Item Value Reference Range Interpretation Comments MAGNESIUM (BEAKER) (test code = 627) 2.2 mg/dL 1.6-2.6 HEPATIC FUNCTION [id number] 06:17:00* Test Item Value Reference Range Interpretation [...] U/L 6-55 H Specimen markedly ictericBLOOD GAS, [id number] 06:04:00* Test Item Value Reference Range Interpretation [...] 75.0 % RAD, CHEST, 1 VIEW, NON [id number] 05:48:00Reason for exam:->pulmonary edemaShould this be performed [...] MDReport Verified Date/Time: 06/09/2018 05:48:52 Reading Location: [address] Neuro Reading Room D GAS, [id number] 04:53:00* Test Item Value Reference Range Interpretation [...] (test code = 1819) 75.0 % CALCIUM, [id number] 04:52:00* Test Item Value Reference Range Interpretation Comments CALCIUM IONIZED (BEAKER) (test code = 698) 1.08 mmol/L 1.12-1.27 L PH, BLOOD (BEAKER) (test code = 1810) 7.55 POCT-GLUCOSE [id number] 04:32:00* Test Item Value Reference Range Interpretation Comments POC-GLUCOSE METER (BEAKER) (test code = 1538) 144 mg/dL 70-110 H TESTED AT [facility] [address] [facility] [address] CBC W/PLT COUNT & AUTO [id number] 04:27:00* Test Item Value Reference Range Interpretation [...] code = 2801) 3 % 0-1 H [id number] 04:21:00* Test Item Value Reference Range Interpretation Comments PARTIAL THROMBOPLASTIN TIME (BEAKER) (test code = 760) 49.5 seconds 22.5-36.0 H PROTHROMBIN [id number] 04:20:00* Test Item Value Reference Range Interpretation Comments PROTIME (BEAKER) (test code = 759) 17.8 seconds 11.7-14.7 H INR (BEAKER) (test code = 370) 1.5 <=5.9 RECOMMENDED COUMADIN/WARFARIN INR THERAPY RANGESSTANDARD DOSE: 2.0 - 3.0 Inclu herb: PROPHYLAXIS for venous thrombosis, systemic embolization; TREATMENT for giulia ous thrombosis and/or pulmonary embolus.HIGH RISK: Target INR is 2.5-3.5 for pat ients with mechanical heart valves.POCT-GLUCOSE [id number] 03:44:00* Test Item Value Reference Range Interpretation Comments POC-GLUCOSE METER (BEAKER) (test code = 1538) 147 mg/dL 70-110 H TESTED AT [address] [address] BASIC METABOLIC [id number] 03:13:00* Test Item Value Reference Range Interpretation [...] APPLICABLE FOR DIALYSIS PATIENTS. Specimen markedly ictericPOCT-GLUCOSE [id number] 02:34:00* Test Item Value Reference Range Interpretation Comments POC-GLUCOSE METER (BEAKER) (test code = 1538) 158 mg/dL 70-110 H TESTED AT [place] [id number] [facility] [address] POCT-GLUCOSE [id number] 01:37:00* Test Item Value Reference Range Interpretation Comments POC-GLUCOSE METER (BEAKER) (test code = 1538) 158 mg/dL 70-110 H TESTED AT [place] [id number] [facility] [address] POCT-GLUCOSE [id number] 23:59:00* Test Item Value Reference Range Interpretation Comments POC-GLUCOSE METER (BEAKER) (test code = 1538) 150 mg/dL 70-110 H TESTED AT [facility] [address] [facility] [place] [address] [id number] 22:28:00* Test Item Value Reference Range Interpretation Comments MAGNESIUM (BEAKER) (test code = 627) 2.4 mg/dL 1.6-2.6 Specimen slightly hemolyzed Check Serum Potassium level 2 hours after oral potassium replacement completed o r 30 min after intravenous potassium replacement.[id number] 21:44:00* Test Item Value Reference Range Interpretation Comments POTASSIUM (BEAKER) (test code = 379) 3.6 meq/L 3.5-5.1 Specimen slightly hemolyzed Check Serum Potassium level 2 hours after oral potassium replacement completed o r 30 min after intravenous potassium replacement.CALCIUM, [id number] 21:20:00* Test Item Value Reference Range Interpretation Comments CALCIUM IONIZED (BEAKER) (test code = 698) 1.06 mmol/L 1.12-1.27 L PH, BLOOD (BEAKER) (test code = 1810) 7.52 Check serum Ionized Calcium level after 4 hours after IV Calcium replacement. BASIC METABOLIC [id number] 20:46:00* Test Item Value Reference Range Interpretation [...] APPLICABLE FOR DIALYSIS PATIENTS. Specimen markedly ictericPOCT-GLUCOSE [id number] 20:42:00* Test Item Value Reference Range Interpretation Comments POC-GLUCOSE METER (BEAKER) (test code = 1538) 158 mg/dL 70-110 H TESTED AT [address] [address] BLOOD [id number] 20:01:00* Test Item Value Reference Range Interpretation Comments CULTURE (BEAKER) (test code = 1095) No growth in 5 days BLOOD [id number] 20:01:00* Test Item Value Reference Range Interpretation Comments CULTURE (BEAKER) (test code = 1095) No growth in 5 days BLOOD GAS, [id number] 18:23:00* Test Item Value Reference Range Interpretation [...] (test code = 1819) 75.0 % POCT-GLUCOSE [id number] 18:21:00* Test Item Value Reference Range Interpretation Comments POC-GLUCOSE METER (BEAKER) (test code = 1538) 145 mg/dL 70-110 H TESTED AT [address] [address] POCT-GLUCOSE [id number] 18:21:00* Test Item Value Reference Range Interpretation Comments POC-GLUCOSE METER (BEAKER) (test code = 1538) 122 mg/dL 70-110 H TESTED AT [address] [address] CORTISOL,60 [id number] 18:04:00* Test Item Value Reference Range Interpretation [...] to a study by Debbie et al ([facility] 2000,283(8):5251-45), the ACTH Stimulation Test provides important prognostic [...] level 60 minutes after cosyntropin administration. CORTISOL,30 [id number] 17:15:00* Test Item Value Reference Range Interpretation Comments CORTISOL BASELINE NETWORKED (BEAKER) (test code = 2307) 17.6 mcg/dL CORTISOL, [...] to a study by Debbie et al ([facility] 2000,283(8):3151-45), the ACTH Stimulation Test provides important prognostic [...] level 60 minutes after cosyntropin administration.POCT- GLUCOSE [id number] 15:59:00* Test Item Value Reference Range Interpretation Comments POC-GLUCOSE METER (GAURAVAKER) (test code = 1538) 162 mg/dL 70-110 H TESTED AT [facility] [address] [place] [address] CORTISOL,[id number] 14:41:00* Test Item Value Reference Range Interpretation [...] septic shock: According to a study by eDbbie et al ([facility] 2000,283(8):6844-45), the ACTH Stimulation Test provides important prognostic [...] level 60 minutes after cosyntropin administration.POCT- GLUCOSE [id number] 13:55:00* Test Item Value Reference Range Interpretation Comments POC-GLUCOSE METER ([facility]) (test code = 1538) 158 mg/dL 70-110 H TESTED AT [facility] [address] [place] [address] POCT-GLUCOSE [id number] 13:55:00* Test Item Value Reference Range Interpretation Comments POC-GLUCOSE METER (BEAKER) (test code = 1538) 117 mg/dL 70-110 H TESTED AT [place] [id number] [facility] [address] BASIC METABOLIC [id number] 13:17:00* Test Item Value Reference Range Interpretation [...] NOT APPLICABLE FOR DIALYSIS PATIENTS. Specimen markedly [id number] 13:13:00* Test Item Value Reference Range Interpretation Comments MAGNESIUM (BEAKER) (test code = 627) 2.5 mg/dL 1.6-2.6 POCT-GLUCOSE [id number] 12:15:00* Test Item Value Reference Range Interpretation Comments POC-GLUCOSE METER (BEAKER) (test code = 1538) 139 mg/dL 70-110 H TESTED AT [place] [id number] [facility] [address] BLOOD GAS, [id number] 11:28:00* Test Item Value Reference Range Interpretation [...] (BEAKER) (test code = 1819) 75.0 % [id number] 09:54:00* Test Item Value Reference Range Interpretation Comments MAGNESIUM (BEAKER) (test code = 627) 2.5 mg/dL 1.6-2.6 Specimen slightly hemolyzed CALCIUM, [id number] 09:22:00* Test Item Value Reference Range Interpretation Comments CALCIUM IONIZED (BEAKER) (test code = 698) 1.08 mmol/L 1.12-1.27 L PH, BLOOD (BEAKER) (test code = 1810) 7.48 Check serum Ionized Calcium level after 4 hours after IV Calcium replacement.CT, CHEST, WITHOUT [id number] 09:01:00FINAL REPORT CT scan of the chest, [...] [place] Verified Date/Time: 06/08/2018 09:01:11 Reading Location: [address] Consult Reading Room , [id number] 09:01:00FINAL REPORT CT scan of the chest, [...] MDReport Verified Date/Time: 06/08/2018 09:01:11 Reading Location: [address] Ortho Consult Reading Room -GLUCOSE [id number] 06:37:00* Test Item Value Reference Range Interpretation Comments POC-GLUCOSE METER (BEAKER) (test code = 1538) 142 mg/dL 70-110 H TESTED AT [facility] [address] [place] [address] BLOOD GAS, [id number] 06:34:00* Test Item Value Reference Range Interpretation [...] (BEAKER) (test code = 1819) 90.0 % [id number] 06:11:00* Test Item Value Reference Range Interpretation Comments PARTIAL THROMBOPLASTIN TIME (BEAKER) (test code = 760) 54.2 seconds 22.5-36.0 H PROTHROMBIN [id number] 06:10:00* Test Item Value Reference Range Interpretation [...] pat ients with mechanical heart valves.HEPATIC FUNCTION [id number] 05:51:00* Test Item Value Reference Range Interpretation [...] U/L 6-55 H Specimen markedly ictericBASIC METABOLIC [id number] 05:51:00* Test Item Value Reference Range Interpretation [...] APPLICABLE FOR DIALYSIS PATIENTS. Specimen markedly ictericPOCT-GLUCOSE [id number] 05:43:00* Test Item Value Reference Range Interpretation Comments POC-GLUCOSE METER (BEAKER) (test code = 1538) 140 mg/dL 70-110 H TESTED AT [facility] [address] [facility] [address] [id number] 05:36:00* Test Item Value Reference Range Interpretation Comments MAGNESIUM (BEAKER) (test code = 627) 2.3 mg/dL 1.6-2.6 [id number] 05:25:00* Test Item Value Reference Range Interpretation Comments PHOSPHORUS (BEAKER) (test code = 604) 4.9 mg/dL 2.3-4.7 H Specimen slightly hemolyzed Check Serum Phosphorus level 4 hours after IV phosphorus replacement or 8 hours after PO replacement completed.POCT-GLUCOSE [id number] 04:20:00* Test Item Value Reference Range Interpretation Comments POC-GLUCOSE METER (BEAKER) (test code = 1538) 153 mg/dL 70-110 H TESTED AT [address] [address] RAD, CHEST, 1 VIEW, NON [id number] 04:10:00Reason for exam:->s/p intubation FINAL REPORT CLINICAL [...] V erified Date/Time: 06/08/2018 04:10:15 Reading Location: [address] Reading Room W/PLT COUNT & AUTO [id number] 03:53:00* Test Item Value Reference Range Interpretation [...] = 2801) 2 % 0-1 H CALCIUM, [id number] 02:54:00* Test Item Value Reference Range Interpretation Comments CALCIUM IONIZED (BEAKER) (test code = 698) 1.09 mmol/L 1.12-1.27 L PH, BLOOD (BEAKER) (test code = 1810) 7.45 Check serum Ionized Calcium level after 4 hours after IV Calcium replacement. BLOOD GAS, [id number] 02:54:00* Test Item Value Reference Range Interpretation [...] 100.0 % RAD, CHEST, 1 VIEW, NON [id number] 02:16:00Reason for exam:->tachypneaFINAL REPORT CLINICAL INDICATION: Kidney Comparison: 06/07/2018 The cardiomediastinal contours are stable. The lung volumes are low but stable after extubation. Worsening, near confluent bilateral pulmonary opacities are nonspecific and may reflect pulmonary edema or multifocal pneumonitis, among other considerations. There is no pneumothorax or large pleural effusion. A left IJ CVC remains in place. Signed: Katherine Reich Verified Date/Time: 0 06/08/2018 02:16:21 Reading Location: [address] Reading Room E lectronically signed by: KATHERINE REICH M.D. on 06/08/2018 02:16 AM BASIC METABOLIC [id number] 01:44:00* Test Item Value Reference Range Interpretation [...] APPLICABLE FOR DIALYSIS PATIENTS. Specimen markedly ictericPOCT-GLUCOSE [id number] 01:18:00* Test Item Value Reference Range Interpretation Comments POC-GLUCOSE METER (BEAKER) (test code = 1538) 122 mg/dL 70-110 H TESTED AT [facility] [address] [facility] [address] BLOOD GAS, [id number] 01:03:00* Test Item Value Reference Range Interpretation [...] (test code = 1819) 100.0 % POCT-GLUCOSE [id number] 00:19:00* Test Item Value Reference Range Interpretation Comments POC-GLUCOSE METER (BEAKER) (test code = 1538) 136 mg/dL 70-110 H TESTED AT [address] [address] BLOOD GAS, [id number] 23:19:00* Test Item Value Reference Range Interpretation [...] (test code = 1819) 40.0 % POCT-GLUCOSE [id number] 22:58:00* Test Item Value Reference Range Interpretation Comments POC-GLUCOSE METER (BEAKER) (test code = 1538) 128 mg/dL 70-110 H TESTED AT [address] [address] POCT-GLUCOSE [id number] 22:00:00* Test Item Value Reference Range Interpretation Comments POC-GLUCOSE METER (BEAKER) (test code = 1538) 108 mg/dL 70-110 TESTED AT [address] [address] BASIC METABOLIC [id number] 21:50:00* Test Item Value Reference Range Interpretation [...] NOT APPLICABLE FOR DIALYSIS PATIENTS. Specimen markedly [id number] 21:38:00* Test Item Value Reference Range Interpretation Comments MAGNESIUM (BEAKER) (test code = 627) 2.0 mg/dL 1.6-2.6 CALCIUM, [id number] 21:15:00* Test Item Value Reference Range Interpretation Comments CALCIUM IONIZED (BEAKER) (test code = 698) 1.12 mmol/L 1.12-1.27 PH, BLOOD (BEAKER) (test code = 1810) 7.51 Check serum Ionized Calcium level after 4 hours after IV Calcium replacement. POCT-GLUCOSE [id number] 20:58:00* Test Item Value Reference Range Interpretation Comments POC-GLUCOSE METER (BEAKER) (test code = 1538) 97 mg/dL 70-110 TESTED AT [address] [address] POCT-GLUCOSE [id number] 19:42:00* Test Item Value Reference Range Interpretation Comments POC-GLUCOSE METER (BEAKER) (test code = 1538) 101 mg/dL 70-110 TESTED AT [address] [address] POCT-GLUCOSE [id number] 18:42:00* Test Item Value Reference Range Interpretation Comments POC-GLUCOSE METER (BEAKER) (test code = 1538) 97 mg/dL 70-110 TESTED AT [address] [address] BLOOD GAS, [id number] 16:56:00* Test Item Value Reference Range Interpretation [...] (test code = 1819) 100.0 % POCT-GLUCOSE [id number] 16:45:00* Test Item Value Reference Range Interpretation Comments POC-GLUCOSE METER (BEAKER) (test code = 1538) 149 mg/dL 70-110 H TESTED AT [facility] [address] [facility] [address] POCT-GLUCOSE [id number] 15:25:00* Test Item Value Reference Range Interpretation Comments POC-GLUCOSE METER (BEAKER) (test code = 1538) 74 mg/dL 70-110 TESTED AT [place] [address] [facility] [address] POCT-GLUCOSE [id number] 14:31:00* Test Item Value Reference Range Interpretation Comments POC-GLUCOSE METER (BEAKER) (test code = 1538) 129 mg/dL 70-110 H TESTED AT [facility] [address] [facility] [address] [id number] 13:46:00* Test Item Value Reference Range Interpretation Comments MAGNESIUM (BEAKER) (test code = 627) 1.8 mg/dL 1.6-2.6 BASIC METABOLIC [id number] 13:46:00* Test Item Value Reference Range Interpretation [...] APPLICABLE FOR DIALYSIS PATIENTS. Specimen markedly ictericPOCT-GLUCOSE [id number] 13:03:00* Test Item Value Reference Range Interpretation Comments POC-GLUCOSE METER (BEAKER) (test code = 1538) 182 mg/dL 70-110 H TESTED AT [facility] [address] [facility] [address] ANTI-MITOCHONDRIAL AB, REFLEX TO [id number] 11:38:00* Test Item Value Reference Range Interpretation Comments SCAN RESULT (test code = 2408858) CBC W/PLT COUNT & AUTO [id number] 11:36:00* Test Item Value Reference Range Interpretation [...] Received comment: User comments: Slide comments: POCT-GLUCOSE [id number] 11:35:00* Test Item Value Reference Range Interpretation Comments POC-GLUCOSE METER (BEAKER) (test code = 1538) 128 mg/dL 70-110 H TESTED AT [facility] [address] [facility] [address] POCT-GLUCOSE [id number] 11:13:00* Test Item Value Reference Range Interpretation Comments POC-GLUCOSE METER (BEAKER) (test code = 1538) 97 mg/dL 70-110 TESTED AT [address] [address] POCT-GLUCOSE [id number] 11:13:00* Test Item Value Reference Range Interpretation Comments POC-GLUCOSE METER (BEAKER) (test code = 1538) 68 mg/dL 70-110 L TESTED AT [address] [address] BLOOD GAS, [id number] 10:41:00* Test Item Value Reference Range Interpretation [...] code = 1819) 100.0 % CATHETER TIP [id number] 09:30:00* Test Item Value Reference Range Interpretation Comments CULTURE (BEAKER) (test code = 1095) No growth BLOOD GAS, [id number] 08:13:00* Test Item Value Reference Range Interpretation [...] (test code = 1819) 65.0 % POCT-GLUCOSE [id number] 07:48:00* Test Item Value Reference Range Interpretation Comments POC-GLUCOSE METER (BEAKER) (test code = 1538) 127 mg/dL 70-110 H TESTED AT [facility] [address] [facility] [address] RAD, CHEST, 1 VIEW, NON [id number] 07:37:00Reason for exam:->resp failureShould this be performed [...] Garcia Verified Date/Time: 06/07/2018 07:37:40 Reading Location: [facility] Radiology Reading Room -GLUCOSE METER 2018-06-07 06:32:00* Test Item Value Reference Range Interpretation Comments POC-GLUCOSE METER (BEAKER) (test code = 1538) 165 mg/dL 70-110 H TESTED AT [facility] [address] [facility] [address] BLOOD GAS, [id number] 05:35:00* Test Item Value Reference Range Interpretation [...] (test code = 1819) 60.0 % CALCIUM, [id number] 05:35:00* Test Item Value Reference Range Interpretation Comments CALCIUM IONIZED (BEAKER) (test code = 698) 0.96 mmol/L 1.12-1.27 L PH, BLOOD (BEAKER) (test code = 1810) 7.45 HEPATIC FUNCTION [id number] 05:32:00* Test Item Value Reference Range Interpretation [...] 103 U/L 6-55 H Specimen markedly ictericPOCT-GLUCOSE [id number] 05:18:00* Test Item Value Reference Range Interpretation Comments POC-GLUCOSE METER (BEAKER) (test code = 1538) 182 mg/dL 70-110 H TESTED AT [facility] [address] [facility] [address] BASIC METABOLIC [id number] 05:17:00* Test Item Value Reference Range Interpretation [...] FOR DIALYSIS PATIENTS. Specimen markedly ictericLACTIC ACID, [id number] 04:58:00* Test Item Value Reference Range Interpretation Comments LACTATE BLOOD ARTERIAL (2) (BEAKER) (test code = 2874) 1.2 mmol/L 0.5-2.2 Specimen markedly [id number] 04:50:00* Test Item Value Reference Range Interpretation Comments PARTIAL THROMBOPLASTIN TIME (BEAKER) (test code = 760) 43.5 seconds 22.5-36.0 H PROTHROMBIN [id number] 04:49:00* Test Item Value Reference Range Interpretation Comments PROTIME (BEAKER) (test code = 759) 18.1 seconds 11.7-14.7 H INR (BEAKER) (test code = 370) 1.5 <=5.9 RECOMMENDED COUMADIN/WARFARIN INR THERAPY RANGESSTANDARD DOSE: 2.0 - 3.0 Inclu herb: PROPHYLAXIS for venous thrombosis, systemic embolization; TREATMENT for giulia ous thrombosis and/or pulmonary embolus.HIGH RISK: Target INR is 2.5-3.5 for pat ients with mechanical heart valves.POCT-GLUCOSE [id number] 04:16:00* Test Item Value Reference Range Interpretation Comments POC-GLUCOSE METER (BEAKER) (test code = 1538) 180 mg/dL 70-110 H TESTED AT [facility] [address] [facility] [address] POCT-GLUCOSE [id number] 03:20:00* Test Item Value Reference Range Interpretation Comments POC-GLUCOSE METER (BEAKER) (test code = 1538) 171 mg/dL 70-110 H TESTED AT [place] [address] [facility] [address] POCT-GLUCOSE [id number] 02:44:00* Test Item Value Reference Range Interpretation Comments POC-GLUCOSE METER (BEAKER) (test code = 1538) 154 mg/dL 70-110 H TESTED AT [address] [address] POCT-GLUCOSE [id number] 01:31:00* Test Item Value Reference Range Interpretation Comments POC-GLUCOSE METER (BEAKER) (test code = 1538) 140 mg/dL 70-110 H TESTED AT [address] [address] BASIC METABOLIC [id number] 01:02:00* Test Item Value Reference Range Interpretation [...] APPLICABLE FOR DIALYSIS PATIENTS. Specimen markedly ictericPOCT-GLUCOSE [id number] 00:57:00* Test Item Value Reference Range Interpretation Comments POC-GLUCOSE METER (BEAKER) (test code = 1538) 173 mg/dL 70-110 H TESTED AT [address] [address] POCT-GLUCOSE [id number] 23:27:00* Test Item Value Reference Range Interpretation Comments POC-GLUCOSE METER (BEAKER) (test code = 1538) 155 mg/dL 70-110 H TESTED AT [address] [address] BASIC METABOLIC [id number] 22:38:00* Test Item Value Reference Range Interpretation [...] NOT APPLICABLE FOR DIALYSIS PATIENTS. Specimen markedly [id number] 22:37:00* Test Item Value Reference Range Interpretation Comments MAGNESIUM (BEAKER) (test code = 627) 2.0 mg/dL 1.6-2.6 BLOOD GAS, [id number] 22:18:00* Test Item Value Reference Range Interpretation [...] (test code = 1819) 60.0 % CALCIUM, [id number] 22:15:00* Test Item Value Reference Range Interpretation Comments CALCIUM IONIZED (BEAKER) (test code = 698) 1.05 mmol/L 1.12-1.27 L PH, BLOOD (BEAKER) (test code = 1810) 7.46 POCT-GLUCOSE [id number] 22:08:00* Test Item Value Reference Range Interpretation Comments POC-GLUCOSE METER (BEAKER) (test code = 1538) 138 mg/dL 70-110 H TESTED AT [address] [address] POCT-GLUCOSE [id number] 21:16:00* Test Item Value Reference Range Interpretation Comments POC-GLUCOSE METER (BEAKER) (test code = 1538) 158 mg/dL 70-110 H TESTED AT [address] [address] [id number] 21:03:00* Test Item Value Reference Range Interpretation Comments POTASSIUM (BEAKER) (test code = 379) 3.8 meq/L 3.5-5.1 Check Serum Potassium level 2 hours after oral potassium replacement completed o r 30 min after intravenous potassium replacement.[id number] 21:03:00* Test Item Value Reference Range Interpretation Comments MAGNESIUM (BEAKER) (test code = 627) 2.0 mg/dL 1.6-2.6 Check Serum Potassium level 2 hours after oral potassium replacement completed o r 30 min after intravenous potassium replacement.POCT-GLUCOSE [id number] 20:15:00* Test Item Value Reference Range Interpretation Comments POC-GLUCOSE METER (BEAKER) (test code = 1538) 161 mg/dL 70-110 H TESTED AT [address] [address] POCT-GLUCOSE [id number] 20:15:00* Test Item Value Reference Range Interpretation Comments POC-GLUCOSE METER (BEAKER) (test code = 1538) 113 mg/dL 70-110 H TESTED AT [address] [address] POCT-GLUCOSE [id number] 19:33:00* Test Item Value Reference Range Interpretation Comments POC-GLUCOSE METER (BEAKER) (test code = 1538) 169 mg/dL 70-110 H TESTED AT [address] [address] [id number] 17:52:00* Test Item Value Reference Range Interpretation Comments CORTISOL, TOTAL (BEAKER) (test code = 2755) 23.9 ug/dL 3.7-19.4 H C. DIFFICILE GDH [id number] 17:45:00* Test Item Value Reference Range Interpretation Comments CDT TOXIN (test code = 8290156700) Negative Negative CDT GDH ANTIGEN (test code = 3427178907) Positive Negative A C. difficile present but toxin not detected. Indicates colonization with non-toxigenic strain or level of toxin below detectable levels. No need for enteric isolation. Treatment is rarely needed (only when strong clinical suspicion for Clostridium difficile infection) Testing performed by [employer] Rapid Cassette Assay. For GDH, published sensitivity of the assay is 98.7% compared to cytotoxicity testing. For Toxin AB, publishe d sensitivity is 87.8% and specificity 99.4% compared to cytotoxicity testing.Ve rification of kit performance was done by the [facility] prior to cl inical use.BASIC METABOLIC [id number] 16:48:00* Test Item Value Reference Range Interpretation [...] APPLICABLE FOR DIALYSIS PATIENTS. Specimen markedly ictericPOCT-GLUCOSE [id number] 15:10:00* Test Item Value Reference Range Interpretation Comments POC-GLUCOSE METER (BEAKER) (test code = 1538) 78 mg/dL 70-110 TESTED AT [facility] [address] [facility] [address] TROPONIN [id number] 13:26:00* Test Item Value Reference Range Interpretation Comments TROPONIN I ([facility]) (test code = 397) < ng/mL 0.00-0.03 [...] acidosis, acute neurological disease, and per sistent tachyarrhythmia.[id number] 13:14:00* Test Item Value Reference Range Interpretation Comments D-DIMER QUANTITATIVE ([facility]) (test code = 671) 2.27 MG/L FEU <0.50 H Intended Use: The D-Dimer Assay can be used to aid in the diagnosis of Deep Vein Thrombosis (DVT) and Pulmonary Embolism Disease (PED).In patients with low pre- test probability, various studies concerning STA Liatest D-dimer test have repor heriberto that with a cutoff value of 0.50 MG/L FEU, the Negative Predictive Value ([employer] V) regarding the exclusion of thrombosis is within 95-100% range.LACTIC ACID, [id number] 13:12:00* Test Item Value Reference Range Interpretation Comments LACTATE BLOOD ARTERIAL (2) (GAURAVAKER) (test code = 2874) 1.3 mmol/L 0.5-2.2 Specimen markedly [id number] 12:57:00* Test Item Value Reference Range Interpretation Comments MAGNESIUM (BEAKER) (test code = 627) 2.1 mg/dL 1.6-2.6 POCT-GLUCOSE [id number] 12:21:00* Test Item Value Reference Range Interpretation Comments POC-GLUCOSE METER (GAURAVAKER) (test code = 1538) 162 mg/dL 70-110 H TESTED AT [facility] [address] [facility] [address] BLOOD [id number] 12:01:00* Test Item Value Reference Range Interpretation Comments CULTURE (GAURAVAKER) (test code = 1095) No growth in 5 days BLOOD [id number] 12:01:00* Test Item Value Reference Range Interpretation Comments CULTURE (BEAKER) (test code = 1095) No growth in 5 days YARI ANTIGEN WITH REFLEX TO [id number] 11:08:00* Test Item Value Reference Range Interpretation Comments YARI ANTIGEN (BEAKER) (test code = 1782) Positive YARI ANTIGEN [id number] 11:08:00* Test Item Value Reference Range Interpretation Comments YARI ANTIGEN TITER (BEAKER) (test code = 737) :4 POCT-GLUCOSE [id number] 11:00:00* Test Item Value Reference Range Interpretation Comments POC-GLUCOSE METER (BEAKER) (test code = 1538) 153 mg/dL 70-110 H TESTED AT [facility] [address] [place] [address] RAD, CHEST, 1 VIEW, NON [id number] 10:38:00Reason for exam:->oxygen desaturation in setting of [...] MDReport Verified Date/Time: 06/06/2018 10:38:12 Reading Location: [facility] Radiology Reading Room -NUCLEAR ANTIBODY (TOM)2018-06-06 [...] (BEAKER) (test code = 1819) 100.0 % [id number] 09:37:00* Test Item Value Reference Range Interpretation Comments LIPASE (BEAKER) (test code = 749) 6 U/L 8-78 L Specimen markedly ictericHEPATIC FUNCTION [id number] 09:37:00* Test Item Value Reference Range Interpretation [...] 347) 105 U/L 6-55 H Specimen markedly [id number] 09:36:00* Test Item Value Reference Range Interpretation Comments AMYLASE (BEAKER) (test code = 349) 17 U/L 25-125 L Specimen markedly [id number] 09:24:00* Test Item Value Reference Range Interpretation Comments CORTISOL, TOTAL (BEAKER) (test code = 2755) 19.9 ug/dL 3.7-19.4 H SPUTUM CULTURE + GRAM [id number] 08:59:00* Test Item Value Reference Range Interpretation Comments CULTURE (BEAKER) (test code = 1095) No growth GRAM STAIN RESULT (BEAKER) (test code = 1123) 3+ WBCs GRAM STAIN RESULT (BEAKER) (test code = 94036) 0-5 epithelial cells GRAM STAIN RESULT (BEAKER) (test code = 25817) No organisms seen BRONCHIAL CULTURE + GRAM [id number] 08:58:00* Test Item Value Reference Range Interpretation Comments CULTURE (BEAKER) (test code = 1095) <1+ Normal respiratory chase pr esent GRAM STAIN RESULT (BEAKER) (test code = 1123) 4+ WBCs GRAM STAIN RESULT (BEAKER) (test code = 50284) No organisms seen BRONCHIAL CULTURE + GRAM [id number] 08:58:00* Test Item Value Reference Range Interpretation Comments CULTURE (BEAKER) (test code = 1095) No growth GRAM STAIN RESULT (BEAKER) (test code = 1123) 1+ WBCs GRAM STAIN RESULT (BEAKER) (test code = 15347) No organisms seen POCT-GLUCOSE [id number] 08:15:00* Test Item Value Reference Range Interpretation Comments POC-GLUCOSE METER (BEAKER) (test code = 1538) 117 mg/dL 70-110 H TESTED AT [facility] [address] [facility] [address] CBC W/PLT COUNT & AUTO [id number] 07:36:00* Test Item Value Reference Range Interpretation [...] comment: User comments: Slide comments: BLOOD GAS, [id number] 06:28:00* Test Item Value Reference Range Interpretation [...] (test code = 1819) 80.0 % POCT-GLUCOSE [id number] 06:21:00* Test Item Value Reference Range Interpretation Comments POC-GLUCOSE METER (BEAKER) (test code = 1538) 130 mg/dL 70-110 H TESTED AT [facility] [address] [facility] [address] RAD, CHEST, 1 VIEW, NON [id number] 05:21:00Reason for exam:->hypoxiaShould this be performed at [...] Avendaño Verified Date/Time: 06/06/2018 05:21:30 Reading Location: [address] Neuro Reading Room -GLUCOSE [id number] 05:10:00* Test Item Value Reference Range Interpretation Comments POC-GLUCOSE METER (BEAKER) (test code = 1538) 144 mg/dL 70-110 H TESTED AT [facility] [address] [facility] [address] POCT-GLUCOSE [id number] 04:17:00* Test Item Value Reference Range Interpretation Comments POC-GLUCOSE METER (BEAKER) (test code = 1538) 161 mg/dL 70-110 H TESTED AT [facility] [address] [facility] [address] [id number] 04:06:00* Test Item Value Reference Range Interpretation Comments PHOSPHORUS (BEAKER) (test code = 604) 3.8 mg/dL 2.3-4.7 Check Serum Phosphorus level 4 hours after IV phosphorus replacement or 8 hours after PO replacement completed.[id number] 04:06:00* Test Item Value Reference Range Interpretation Comments MAGNESIUM (BEAKER) (test code = 627) 2.5 mg/dL 1.6-2.6 Check Serum Phosphorus level 4 hours after IV phosphorus replacement or 8 hours after PO replacement completed.BASIC METABOLIC [id number] 04:06:00* Test Item Value Reference Range Interpretation [...] 8 hours after PO replacement completed.Specimen markedly [id number] 04:02:00 * Test Item Value Reference Range Interpretation Comments PARTIAL THROMBOPLASTIN TIME (BEAKER) (test code = 760) 44.7 seconds 22.5-36.0 H PROTHROMBIN TIME/[id number] 04:00:00* Test Item Value Reference Range Interpretation [...] pat ients with mechanical heart valves.BLOOD GAS, [id number] 03:38:00* Test Item Value Reference Range Interpretation [...] code = 1819) 70.0 % BASIC METABOLIC [id number] 03:34:00* Test Item Value Reference Range Interpretation [...] APPLICABLE FOR DIALYSIS PATIENTS. Specimen markedly ictericPOCT-GLUCOSE [id number] 03:19:00* Test Item Value Reference Range Interpretation Comments POC-GLUCOSE METER (BEAKER) (test code = 1538) 171 mg/dL 70-110 H TESTED AT [address] [address] POCT-GLUCOSE [id number] 02:34:00* Test Item Value Reference Range Interpretation Comments POC-GLUCOSE METER (BEAKER) (test code = 1538) 201 mg/dL 70-110 H TESTED AT [address] [address] POCT-GLUCOSE [id number] 01:17:00* Test Item Value Reference Range Interpretation Comments POC-GLUCOSE METER (BEAKER) (test code = 1538) 174 mg/dL 70-110 H TESTED AT [address] [address] [id number] 00:15:00* Test Item Value Reference Range Interpretation Comments MAGNESIUM (BEAKER) (test code = 627) 2.3 mg/dL 1.6-2.6 POCT-GLUCOSE [id number] 00:10:00* Test Item Value Reference Range Interpretation Comments POC-GLUCOSE METER (BEAKER) (test code = 1538) 143 mg/dL 70-110 H TESTED AT [address] [address] POCT-GLUCOSE [id number] 23:18:00* Test Item Value Reference Range Interpretation Comments POC-GLUCOSE METER (BEAKER) (test code = 1538) 145 mg/dL 70-110 H TESTED AT [address] [address] POCT-GLUCOSE [id number] 22:18:00* Test Item Value Reference Range Interpretation Comments POC-GLUCOSE METER (BEAKER) (test code = 1538) 186 mg/dL 70-110 H TESTED AT [address] [address] POCT-GLUCOSE [id number] 21:23:00* Test Item Value Reference Range Interpretation Comments POC-GLUCOSE METER (BEAKER) (test code = 1538) 220 mg/dL 70-110 H TESTED AT [address] [address] POCT-GLUCOSE [id number] 20:47:00* Test Item Value Reference Range Interpretation Comments POC-GLUCOSE METER (BEAKER) (test code = 1538) 248 mg/dL 70-110 H TESTED AT [address] [address] POCT-GLUCOSE [id number] 19:10:00* Test Item Value Reference Range Interpretation Comments POC-GLUCOSE METER (BEAKER) (test code = 1538) 236 mg/dL 70-110 H TESTED AT [address] [address] POCT-GLUCOSE [id number] 18:16:00* Test Item Value Reference Range Interpretation Comments POC-GLUCOSE METER (BEAKER) (test code = 1538) 275 mg/dL 70-110 H TESTED AT [address] [address] BLOOD GAS, [id number] 17:21:00* Test Item Value Reference Range Interpretation [...] (test code = 1819) 60.0 % POCT-GLUCOSE [id number] 17:12:00* Test Item Value Reference Range Interpretation Comments POC-GLUCOSE METER (BEAKER) (test code = 1538) 304 mg/dL 70-110 H Will Repeat Test/TESTED AT [address] [address] POCT-GLUCOSE [id number] 16:01:00* Test Item Value Reference Range Interpretation Comments POC-GLUCOSE METER (BEAKER) (test code = 1538) 302 mg/dL 70-110 H TESTED AT [facility] [address] [facility] [address] BLOOD GAS, [id number] 14:06:00* Test Item Value Reference Range Interpretation [...] (BEAKER) (test code = 1819) 70.0 % [id number] 13:25:00* Test Item Value Reference Range Interpretation Comments POTASSIUM (BEAKER) (test code = 379) 4.1 meq/L 3.5-5.1 Specimen slightly hemolyzed [id number] 13:25:00* Test Item Value Reference Range Interpretation Comments GLUCOSE RANDOM (BEAKER) (test code = 652) 346 mg/dL 70-105 H BASIC METABOLIC [id number] 13:18:00* Test Item Value Reference Range Interpretation [...] NOT APPLICABLE FOR DIALYSIS PATIENTS. Specimen markedly [id number] 13:17:00* Test Item Value Reference Range Interpretation Comments MAGNESIUM (BEAKER) (test code = 627) 2.4 mg/dL 1.6-2.6 Specimen slightly hemolyzed BASIC METABOLIC [id number] 13:17:00* Test Item Value Reference Range Interpretation [...] APPLICABLE FOR DIALYSIS PATIENTS. Specimen markedly ictericPOCT-GLUCOSE [id number] 11:46:00* Test Item Value Reference Range Interpretation Comments POC-GLUCOSE METER (BEAKER) (test code = 1538) 297 mg/dL 70-110 H TESTED AT [facility] [address] [facility] [address] RAD, CHEST, 1 VIEW, NON [id number] 11:28:00Reason for exam:->resp failureShould this be performed at the bedside?->YesFINAL REPORT AP chest HISTORY: Respiratory failure. COMPARISON: 06/04/2018. IMPRESSION: Supportive lines unchanged. Hypoinflation. Asymmetric interstitial opacities, left greater than right, increased from previous. No pneumothorax. Signed: Eric Andrade MDReport Verified Date/Time: 06/05/2018 11:28:49 Reading Location: [facility] Radiology Reading Room IRATORY PANEL [facility] 2018-06-05 09:47:00* Test Item Value Reference [...] decisions. This sample was tested at the [facility] using the [employer] rray Respiratory Panel. It is FDA cleared and has been verified and approved by the [facility] for clinical use on nasal swab specim ens. It is not FDA-cleared for use on bronchial wash/lavage samples. However, fo r this sample type, validation was performed and test characteristics were deter mined and approved, by [facility] for clinical use u nder the Clinical Laboratory Improvement Amendments (CLIA) of 1988 requirements. Therefore, FDA clearance is not required. This laboratory is CLIA-certified an d [employer] ([employer])-accredited to perform high complexity t esting.CBC W/PLT COUNT & AUTO [id number] 07:05:00* Test Item Value Reference Range Interpretation [...] quate Received comment: User comments: Slide comments: [id number] 06:05:00* Test Item Value Reference Range Interpretation Comments PROCALCITONIN (BEAKER) (test code = 3036) 2.30 ng/mL <0.05 H SEPSIS RISK (ng/mL)Low: 0.05-0.50Intermediate: 0.51-2.00High: > =2.01LACTIC ACID, [id number] 05:39:00* Test Item Value Reference Range Interpretation Comments LACTATE BLOOD ARTERIAL (2) (BEAKER) (test code = 2874) 1.3 mmol/L 0.5-2.2 Specimen slightly hemolyzed Specimen markedly ictericCALCIUM, [id number] 04:12:00* Test Item Value Reference Range Interpretation Comments CALCIUM IONIZED (BEAKER) (test code = 698) 0.98 mmol/L 1.12-1.27 L PH, BLOOD (BEAKER) (test code = 1810) 7.43 Check serum Ionized Calcium level after 4 hours after IV Calcium replacement. BLOOD GAS, [id number] 04:06:00* Test Item Value Reference Range Interpretation [...] (test code = 1819) 75.0 % PTH, [id number] 04:05:00* Test Item Value Reference Range Interpretation Comments PARATHYROID HORMONE INTACT (BEAKER) (test code = 577) 183.2 pg/mL 8.5-72.5 H [id number] 04:04:00* Test Item Value Reference Range Interpretation Comments PARTIAL THROMBOPLASTIN TIME (BEAKER) (test code = 760) 48.3 seconds 22.5-36.0 H PROTHROMBIN [id number] 04:03:00* Test Item Value Reference Range Interpretation [...] = 380) 90 U/L 29-20 0 POCT-GLUCOSE [id number] 00:47:00* Test Item Value Reference Range Interpretation Comments POC-GLUCOSE METER (BEAKER) (test code = 1538) 277 mg/dL 70-110 H TESTED AT [facility] [address] [facility] [address] CALCIUM, [id number] 00:37:00* Test Item Value Reference Range Interpretation Comments CALCIUM IONIZED (BEAKER) (test code = 698) 0.95 mmol/L 1.12-1.27 L PH, BLOOD (BEAKER) (test code = 1810) 7.44 Check serum Ionized Calcium level after 4 hours after IV Calcium replacement. [id number] 00:36:00* Test Item Value Reference Range Interpretation Comments POTASSIUM (BEAKER) (test code = 379) 3.9 meq/L 3.5-5.1 8 hours after PO replacement [id number] 20:35:00* Test Item Value Reference Range Interpretation Comments MAGNESIUM (BEAKER) (test code = 627) 2.3 mg/dL 1.6-2.6 BASIC METABOLIC [id number] 20:35:00* Test Item Value Reference Range Interpretation [...] FOR DIALYSIS PATIENTS. Specimen markedly ictericU/S, ABDOMINAL, [id number] 18:10:00Abdomen limited area? Add comment if clarification [...] of hepatic steatosis.2. Trace ascites. Signed: Regis Ortega MDReport Verified Date/Time: 06/04/2018 18:10:46 Reading Location: [address] Ultrasound Reading Room -GLUCOSE METER 2018-06-04 17:48:00* Test Item Value Reference Range Interpretation Comments POC-GLUCOSE METER (BEAKER) (test code = 1538) 294 mg/dL 70-110 H TESTED AT [place] [address] CALCIUM, [id number] 15:55:00* Test Item Value Reference Range Interpretation Comments CALCIUM IONIZED (BEAKER) (test code = 698) 0.98 mmol/L 1.12-1.27 L PH, BLOOD (BEAKER) (test code = 1810) 7.50 RAD, ABDOMEN/KUB, 1 VIEW [id number] 14:34:00Reason for exam:->Cortrak placementFINAL REPORT Abdomen. CLINICAL HISTORY: Corpak placement. Comparison study: None available. FINDINGS: A single supine view the abdomen demonstrates a feeding tube in place, the distal aspect coiled near the antrum with the tip projecting over the mid stomach. This film is insensitive for the detection of free air. Signed: Andrew Sloan MDReport Verified Date/Time: 06/04/2018 14:34:10 Reading Location: [address] Consult Reading Room C METABOLIC [id number] 14:26:00* Test Item Value Reference Range Interpretation [...] FOR DIALYSIS PATIENTS. Specimen markedly ictericLACTIC ACID, [id number] 14:09:00* Test Item Value Reference Range Interpretation Comments LACTATE BLOOD ARTERIAL (2) (BEAKER) (test code = 2874) 1.2 mmol/L 0.5-2.2 Specimen markedly ictericPOCT-GLUCOSE [id number] 13:35:00* Test Item Value Reference Range Interpretation Comments POC-GLUCOSE METER (BEAKER) (test code = 1538) 247 mg/dL 70-110 H TESTED AT [facility] [address] [facility] [address] [id number] 11:32:00* Test Item Value Reference Range Interpretation Comments MAGNESIUM (BEAKER) (test code = 627) 2.1 mg/dL 1.6-2.6 Specimen slightly hemolyzed BASIC METABOLIC [id number] 11:32:00* Test Item Value Reference Range Interpretation [...] FOR DIALYSIS PATIENTS. Specimen markedly ictericVANCOMYCIN LEVEL, [id number] 11:20:00* Test Item Value Reference Range Interpretation Comments VANCOMYCIN RANDOM (BEAKER) (test code = 523) 27.0 ug/mL Reference Range: No NormalsURINALYSIS W/ REFLEX URINE [id number] 11:15:00 * Test Item Value Reference Range [...] = 2795) RAD, CHEST, 1 VIEW, NON [id number] 11:01:00Reason for exam:->ETT advancement, L IJ CVC [...] Shields Verified Date/Time: 06/04/2018 11:01:19 Reading Location: [facility] Radiology Reading Room C METABOLIC [id number] 10:59:00* Test Item Value Reference Range Interpretation [...] NOT APPLICABLE FOR DIALYSIS PATIENTS. Specimen markedly [id number] 10:53:00* Test Item Value Reference Range Interpretation Comments AMYLASE (BEAKER) (test code = 349) 32 U/L 25-125 Specimen markedly [id number] 10:53:00* Test Item Value Reference Range Interpretation Comments LIPASE (BEAKER) (test code = 749) 27 U/L 8-78 Specimen markedly ictericBLOOD GAS, [id number] 10:51:00* Test Item Value Reference Range Interpretation [...] (test code = 368) 5.3 % 4.3-6.1 [id number] 09:15:00* Test Item Value Reference Range Interpretation Comments PROCALCITONIN (BEAKER) (test code = 3036) 2.96 ng/mL <0.05 H SEPSIS RISK (ng/mL)Low: 0.05-0.50Intermediate: 0.51-2.00High: > =2.01RAD, CHEST, 1 VIEW, NON [id number] 09:01:00Reason for exam:->ARDSFINAL REPORT TECHNIQUE: Frontal chest radiograph dated . CLINICAL HISTORY: ARDS COMPARISON STUDY: Chest radiograph dated 9 IMPRESSION:Life support tubes and lines are unchanged. There is stable atelect asis in the left lung base. No pleural effusion or pneumothorax. Cardiomediastin al silhouette is normal in size. No pulmonary edema. No fracture. Signed: Sb Doneport Verified Date/Time: 06/04/2018 09:01:21 Reading Location : [facility] Radiology Reading Room IC ACID, [id number] 08:49:00* Test Item Value Reference Range Interpretation Comments LACTATE BLOOD ARTERIAL (2) (BEAKER) (test code = 2874) 1.4 mmol/L 0.5-2.2 Specimen moderately ictericBLOOD GAS, [id number] 05:26:00* Test Item Value Reference Range Interpretation [...] code = 1819) 80.0 % COMPREHENSIVE METABOLIC [id number] 04:41:00* Test Item Value Reference Range Interpretation [...] FOR DIALYSIS PATIENTS. Specimen markedly ictericHEPATIC FUNCTION [id number] 04:41:00* Test Item Value Reference Range Interpretation [...] U/L 6-55 H Specimen markedly ictericLACTIC ACID, [id number] 04:32:00* Test Item Value Reference Range Interpretation Comments LACTATE BLOOD ARTERIAL (2) (BEAKER) (test code = 2874) 1.6 mmol/L 0.5-2.2 Specimen markedly [id number] 04:31:00* Test Item Value Reference Range Interpretation Comments FIBRINOGEN LEVEL (BEAKER) (test code = 658) 592 mg/dl 225-434 H [id number] 04:31:00* Test Item Value Reference Range Interpretation [...] 2.5-3.5 for pat ients with mechanical heart valves.[id number] 04:31:00* Test Item Value Reference Range Interpretation Comments PARTIAL THROMBOPLASTIN TIME (BEAKER) (test code = 760) 41.5 seconds 22.5-36.0 H PROTHROMBIN TIME/[id number] 04:30:00* Test Item Value Reference Range Interpretation [...] mechanical heart valves.CBC W/PLT COUNT & AUTO [id number] 04:15:00* Test Item Value Reference Range Interpretation [...] = 2801) 3 % 0-1 H POCT-GLUCOSE [id number] 23:44:00* Test Item Value Reference Range Interpretation Comments POC-GLUCOSE METER (BEAKER) (test code = 1538) 195 mg/dL 70-110 H TESTED AT [address] [address] RAD, CHEST, 1 VIEW, NON [id number] 21:14:00Reason for exam:->respiratory failure/hypoxiaShould this be performed [...] MDReport Verified Date/Time: 09/2018 21:14:49 Reading Location: [address] Consult Reading Room Electro nically signed by: SADIQ HAINES M.D. on 06/03/2018 09:14 PM FERRITIN 2018-06-03 21:11:00* Test Item Value Reference Range Interpretation Comments FERRITIN (BEAKER) (test code = 361) 1898 ng/mL 5-275 H HEPATITIS B SURFACE [id number] 20:52:00* Test Item Value Reference Range Interpretation Comments HEPATITIS B SURFACE ANTIBODY (BEAKER) (test code = 647) < mIU/mL <8.0 HEPATITIS B SURFACE [id number] 20:51:00* Test Item Value Reference Range Interpretation Comments HEPATITIS B SURFACE ANTIGEN (2) (BEAKER) (test code = 2585) Nonreactive Nonreactive HEPATITIS C [id number] 20:51:00* Test Item Value Reference Range Interpretation Comments HEPATITIS C ANTIBODY (BEAKER) (test code = 367) Nonreactive Nonrea ctive HEPATITIS B CORE ANTIBODY, [id number] 20:51:00* Test Item Value Reference Range Interpretation Comments HEPATITIS B CORE TOTAL ANTIBODY (BEAKER) (test code = 497) N onreactive Nonreactive [id number] 20:48:00* Test Item Value Reference Range Interpretation Comments MAGNESIUM (BEAKER) (test code = 627) 1.9 mg/dL 1.6-2.6 BASIC METABOLIC [id number] 20:48:00* Test Item Value Reference Range Interpretation [...] DIALYSIS PATIENTS. Specimen markedly ictericHEPATITIS A ANTIBODY, [id number] 20:45:00* Test Item Value Reference Range Interpretation Comments HEPATITIS A IGG ANTIBODY (BEAKER) (test code = 2797) Reactive N onreactive A ALPHA FETOPROTEIN (AFP), TUMOR [id number] 20:44:00* Test Item Value Reference Range Interpretation Comments ALPHA-FETOPROTEIN (BEAKER) (test code = 1094) 6.3 ng/mL <10.0 HEPATITIS B CORE ANTIBODY, [id number] 20:44:00* Test Item Value Reference Range Interpretation Comments HEPATITIS B CORE IGM ANTIBODY (BEAKER) (test code = 645) Non reactive Nonreactive HEPATITIS A ANTIBODY, [id number] 20:44:00* Test Item Value Reference Range Interpretation [...] 2590) 40 % 20-5 5 BLOOD GAS, [id number] 20:25:00* Test Item Value Reference Range Interpretation [...] 1819) 100.0 % SPUTUM CULTURE + GRAM [id number] 19:38:00* Test Item Value Reference Range Interpretation Comments CULTURE (BEAKER) (test code = 1095) <1+ Normal respiratory chase pr esent GRAM STAIN RESULT (BEAKER) (test code = 1123) 1+ White blood cells seen GRAM STAIN RESULT (BEAKER) (test code = 27835) 0-5 epithelial cells GRAM STAIN RESULT (BEAKER) (test code = 70919) <1+ gram negative ro ds URINALYSIS W/ REFLEX URINE [id number] 18:20:00* Test Item Value Reference Range Interpretation [...] 514) 3 /LPF SOURCE(BEAKER) (test code = 3715) BLOOD GAS, [id number] 17:17:00* Test Item Value Reference Range Interpretation [...] (BEAKER) (test code = 1819) 60.0 % COOLW-2-YGWFKMKADKO1246-04-08 16:17:00* Test Item Value Reference Range Interpretation Comments ALPHA-1 ANTITRYPSIN (BEAKER) (test code = 502) > mg/dL 90.00-2 00.00 H [id number] 14:26:00* Test Item Value Reference Range Interpretation Comments MAGNESIUM (BEAKER) (test code = 627) 2.0 mg/dL 1.6-2.6 BASIC METABOLIC [id number] 14:26:00* Test Item Value Reference Range Interpretation [...] FOR DIALYSIS PATIENTS. Specimen markedly ictericBLOOD GAS, [id number] 13:25:00* Test Item Value Reference Range Interpretation [...] code = 1819) 40.0 % VANCOMYCIN LEVEL, [id number] 11:06:00* Test Item Value Reference Range Interpretation Comments VANCOMYCIN TROUGH (BEAKER) (test code = 522) 45.6 ug/mL 10.0-20.0 HH BLOOD GAS, [id number] 09:54:00* Test Item Value Reference Range Interpretation [...] 40.0 % RAD, CHEST, 1 VIEW, NON [id number] 05:04:00Reason for exam:->ARDSFINAL REPORT Chest one view. [...] MDReport Verified Date/Time: 06/03/2018 05:04:55 Reading Location: [facility] C013Y CT Body Reading Room REHENSIVE METABOLIC [...] 700) 405 pg/mL 0-100 H LACTIC ACID, [id number] 04:01:00* Test Item Value Reference Range Interpretation Comments LACTATE BLOOD ARTERIAL (2) (BEAKER) (test code = 2744) 0.7 mmol/L 0.5-2.2 Specimen moderately ictericCBC W/PLT COUNT & AUTO [id number] 03:57:00* Test Item Value Reference Range Interpretation [...] code = 2801) 3 % 0-1 H [id number] 03:48:00* Test Item Value Reference Range Interpretation Comments FIBRINOGEN LEVEL (BEAKER) (test code = 658) 644 mg/dl 225-434 H PT/[id number] 03:48:00* Test Item Value Reference Range Interpretation [...] pat ients with mechanical heart valves.BLOOD GAS, [id number] 03:36:00* Test Item Value Reference Range Interpretation [...] (test code = 1819) 40.0 % POCT-GLUCOSE [id number] 02:21:00* Test Item Value Reference Range Interpretation Comments POC-GLUCOSE METER (BEAKER) (test code = 1538) 225 mg/dL 70-110 H TESTED AT [facility] [address] [facility] [address] [id number] 21:48:00* Test Item Value Reference Range Interpretation Comments MAGNESIUM (BEAKER) (test code = 627) 2.2 mg/dL 1.6-2.6 BASIC METABOLIC [id number] 21:48:00* Test Item Value Reference Range Interpretation [...] NOT APPLICABLE FOR DIALYSIS PATIENTS. Specimen markedly [id number] 17:35:00* Test Item Value Reference Range Interpretation Comments MAGNESIUM (BEAKER) (test code = 627) 2.8 mg/dL 1.6-2.6 H Specimen moderately hemolyzed [id number] 17:35:00* Test Item Value Reference Range Interpretation Comments POTASSIUM (BEAKER) (test code = 379) 4.5 meq/L 3.5-5.1 Specimen moderately hemolyzed [id number] 15:15:00* Test Item Value Reference Range Interpretation Comments PROCALCITONIN (BEAKER) (test code = 3036) 1.58 ng/mL <0.05 H SEPSIS RISK (ng/mL)Low: 0.05-0.50Intermediate: 0.51-2.00High: > =2.01B-TYPE NATRIURETIC FACTOR (BNP)2018-06-02 14:09:00* Test Item Value Reference Range Interpretation Comments B-TYPE NATRIURETIC PEPTIDE (BEAKER) (test code = 700) 286 pg/mL 0-100 H [id number] 13:51:00* Test Item Value Reference Range Interpretation Comments PARTIAL THROMBOPLASTIN TIME (BEAKER) (test code = 760) 42.9 seconds 22.5-36.0 H PROTHROMBIN TIME/[id number] 13:50:00* Test Item Value Reference Range Interpretation [...] pat ients with mechanical heart valves.BLOOD GAS, [id number] 13:33:00* Test Item Value Reference Range Interpretation [...] (test code = 1819) 40.0 % GLUCOSE-STAT [id number] 13:33:00* Test Item Value Reference Range Interpretation Comments GLUCOSE RANDOM (BEAKER) (test code = 652) 174 mg/dL 70-110 H TSH/FREE T4 IF [id number] 07:15:00* Test Item Value Reference Range Interpretation Comments THYROID STIMULATING HORMONE (BEAKER) (test code = 772) 1.76 uIU/mL 0.35-4.94 COMPREHENSIVE METABOLIC [id number] 03:52:00* Test Item Value Reference Range Interpretation [...] Specimen markedly ictericRAD, CHEST, 1 VIEW, NON [id number] 03:35:00Reason for exam:->ARDSFINAL REPORT Chest one view. [...] no pneumothorax or pleural effusion. Signed: Nicolás Ceballoseport Verified Date/Time: 06/02/2018 03:35:13 Reading Location: [address] Body Reading Room /[id number] 03:12:00* Test Item Value Reference Range Interpretation [...] 2.5-3.5 for pat ients with mechanical heart valves.[id number] 03:03:00* Test Item Value Reference Range Interpretation Comments FIBRINOGEN LEVEL (BEAKER) (test code = 658) 695 mg/dl 225-434 H LACTIC ACID, [id number] 03:02:00* Test Item Value Reference Range Interpretation Comments LACTATE BLOOD ARTERIAL (2) (BEAKER) (test code = 2874) 0.7 mmol/L 0.5-2.2 Specimen markedly ictericCBC W/PLT COUNT & AUTO [id number] 02:53:00 * Test Item Value Reference Range [...] 2801) 2 % 0-1 H BLOOD GAS, [id number] 02:53:00* Test Item Value Reference Range Interpretation [...] code = 1819) 60.0 % BLOOD GAS, [id number] 00:24:00* Test Item Value Reference Range Interpretation [...] code = 1819) 60.0 % BASIC METABOLIC [id number] 17:38:00* Test Item Value Reference Range Interpretation [...] FOR DIALYSIS PATIENTS. Specimen markedly ictericBLOOD GAS, [id number] 17:10:00* Test Item Value Reference Range Interpretation [...] (test code = 1819) 60.0 % Blood [id number] 17:08:00* Test Item Value Reference Range Interpretation Comments Blood Culture (test code = 60834734) NO GROWTH AFTER 5 DAYS, FINAL REPORT [facility] TexasU/S, ABDOMINAL, [id number] 15:11:00Abdomen limited area? Add comment if clarification [...] MDReport Verified Date/Time: 06/01/2018 15:11:50 Reading Location: [facility] B1 C013X Ortho Consult Reading Room A GLUTAMYL TRANSFERASE (GGT) 2018-06-01 14:41:00* Test Item Value Reference Range Interpretation Comments GAMMA GLUTAMYL TRANSFERASE (BEAKER) (test code = 364) 136 U/L 9-64 H Specimen markedly ictericBLOOD GAS, [id number] 14:18:00* Test Item Value Reference Range Interpretation [...] = 1819) 60.0 % CT, CHEST, WITHOUT [id number] 13:38:00FINAL REPORT TECHNIQUE: CT of the chest, [...] rt Verified Date/Time: 06/01/2018 13:38:09 Reading Location: [address] Reading Room Electronically signed by: KYLE RAE MD on 07/2018 01:[address], [id number] 13:38:00FINAL REPORT TECHNIQUE: CT of the chest, [...] months to document resolution. Signed: Kyle Rae rt Verified Date/Time: 06/01/2018 13:38:09 Reading Location: [facility] C013X Ortho Consult Reading Room Electronically signed by: KYLE RAE MD on 07/2018 01:[address], BRAIN, WITHOUT [id number] 13:10:00FINAL REPORT CT, BRAIN, WITHOUT CONTRAST CLINICAL [...] Verified Date/Time: 06/01/2018 13:10:29 Reading Lo cation: [facility] B1 C013V Neuro Reading Room D GAS, [id number] 11:45:00* Test Item Value Reference Range Interpretation [...] 1819) 80.0 % URINALYSIS W/ REFLEX URINE [id number] 11:13:00* Test Item Value Reference Range Interpretation [...] 1414) 16.4 % 0.0-5.0 H COMPREHENSIVE METABOLIC [id number] 10:13:00* Test Item Value Reference Range Interpretation [...] 248 U/L 125-2 20 H HEPATIC FUNCTION [id number] 09:21:00* Test Item Value Reference Range Interpretation [...] = 347) 32 U/L 6-55 Specimen markedly kwvuodmYQTJBQOTRH7633-24-28 09:20:00* Test Item Value Reference Range Interpretation Comments FIBRINOGEN LEVEL (BEAKER) (test code = 658) 729 mg/dl 225-434 H PT/[id number] 09:20:00* Test Item Value Reference Range Interpretation [...] 2.5-3.5 for pat ients with mechanical heart valves.[id number] 09:20:00* Test Item Value Reference Range Interpretation Comments PHOSPHORUS (BEAKER) (test code = 604) 3.9 mg/dL 2.3-4.7 [id number] 09:20:00* Test Item Value Reference Range Interpretation Comments MAGNESIUM (BEAKER) (test code = 627) 2.3 mg/dL 1.6-2.6 LACTIC ACID, [id number] 09:17:00* Test Item Value Reference Range Interpretation Comments LACTATE BLOOD ARTERIAL (2) (BEAKER) (test code = 2874) 0.7 mmol/L 0.5-2.2 Specimen markedly ictericCBC W/PLT COUNT & AUTO [id number] 09:13:00 * Test Item Value Reference Range [...] 2801) 3 % 0-1 H OXYGEN SATURATION, [id number] 09:07:00* Test Item Value Reference Range Interpretation Comments O2 SATURATION (MEASURED) (BEAKER) (test code = 1455) 80.9 % CALCIUM, [id number] 09:06:00* Test Item Value Reference Range Interpretation Comments CALCIUM IONIZED (BEAKER) (test code = 698) 1.01 mmol/L 1.12-1.27 L PH, BLOOD (BEAKER) (test code = 1810) 7.40 BLOOD GAS, [id number] 09:05:00* Test Item Value Reference Range Interpretation [...] code = 1819) 100.0 % SODIUM NA-STAT [id number] 09:05:00* Test Item Value Reference Range Interpretation Comments SODIUM (BEAKER) (test code = 381) 127 meq/L 135-148 L GLUCOSE-STAT [id number] 09:05:00* Test Item Value Reference Range Interpretation Comments GLUCOSE RANDOM (BEAKER) (test code = 652) 181 mg/dL 70-110 H HGB/HCT (H&H) - STAT [id number] 09:05:00* Test Item Value Reference Range Interpretation Comments HEMOGLOBIN (BEAKER) (test code = 410) 10.4 g/dL 13.0-16.8 L HEMATOCRIT (BEAKER) (test code = 411) 31.0 % 40.0-50.0 L POTASSIUM-STAT [id number] 09:02:00* Test Item Value Reference Range Interpretation Comments POTASSIUM (BEAKER) (test code = 379) 4.6 meq/L 3.6-5.5 RAD, CHEST, 1 VIEW, NON [id number] 08:51:00Reason for exam:->ARFShould this be performed at [...] obscured.Additional findings: None. Signed: JR Mckeon Robert MDReport Verified Date/Time: 06/01/2018 08:51:32 Reading Location: [address] Neuro Reading Room D GAS, [id number] 08:32:00* Test Item Value Reference Range Interpretation [...] code = 1819) 100.0 % SODIUM NA-STAT [id number] 08:32:00* Test Item Value Reference Range Interpretation Comments SODIUM (BEAKER) (test code = 381) 127 meq/L 135-148 L GLUCOSE-STAT [id number] 08:32:00* Test Item Value Reference Range Interpretation Comments GLUCOSE RANDOM (BEAKER) (test code = 652) 171 mg/dL 70-110 H HGB/HCT (H&H) - STAT [id number] 08:32:00* Test Item Value Reference Range Interpretation Comments HEMOGLOBIN (BEAKER) (test code = 410) 10.5 g/dL 13.0-16.8 L HEMATOCRIT (BEAKER) (test code = 411) 31.0 % 40.0-50.0 L CALCIUM, [id number] 08:32:00* Test Item Value Reference Range Interpretation Comments CALCIUM IONIZED (BEAKER) (test code = 698) 1.00 mmol/L 1.12-1.27 L PH, BLOOD (BEAKER) (test code = 1810) 7.43 POTASSIUM-STAT [id number] 08:30:00* Test Item Value Reference Range Interpretation Comments POTASSIUM (BEAKER) (test code = 379) 5.4 meq/L 3.6-5.5 Sodium [id number] 03:33:00* Test Item Value Reference Range Interpretation Comments Sodium Level (test code = 2951-2) 130 136-145 L [facility] TexasPotassium [id number] 03:33:00* Test Item Value Reference Range Interpretation Comments Potassium Level (test code = 2823-3) 5.1 3.5-5.1 SPECIMEN SLIGHTLY ICTERICCHI [facility] Health KaufmanChloride Level 2018-06-01 03:33:00* Test Item Value Reference Range Interpretation Comments Chloride Level (test code = 2075-0) 93 98-107 L [facility] TexasCarbon Dioxide [id number] 03:33:00* Test Item Value Reference Range Interpretation Comments Carbon Dioxide Level (test code = 2028-9) 25 22-29 [facility] TexasAnion [id number] 03:33:00* Test Item Value Reference Range Interpretation Comments Anion Gap (test code = 78661-5) 17.1 8-16 H [facility] TexasBlood Urea [id number] 03:33:00* Test Item Value Reference Range Interpretation Comments Blood Urea Nitrogen (test code = 3094-0) 25 7-26 VERIFIED PREVIOUS RESULTSDell [facility]on [facility] of TexasCreatinine 2018-06-01 03:33:00* Test Item Value Reference Range Interpretation Comments Creatinine (test code = 2160-0) 1.47 0.72-1.25 H [facility] TexasBUN/Creatinine Wqqfm2726-18-11 03:33:00* Test Item Value Reference Range Interpretation Comments BUN/Creatinine Ratio (test code = 3097-3) 17 6-25 [facility] of TexasEstimat Glomerular Filtration Rate 2018-06-01 03:33:00* Test Item Value Reference Range Interpretation Comments Estimat Glomerular Filtration Rate (test code = 396037354) 53 >60 L Ranges were taken from the National Kidney Disease Education Program and the [facility] [employer] literature.Reference ranges:60 or greater: Vozjdo99-62 ( for 3 consecutive months): Chronic kidney disease 15 or less: Kidney failureDell Seton Medical Center at The University of TexasGlucose Cmbki7904-58-99 03:33:00* Test Item Value Reference Range Interpretation Comments Glucose Level (test code = QTJ7766) 160 74-118 H [facility] TexasCalcium Hqltg1342-57-41 03:33:00* Test Item Value Reference Range Interpretation Comments Calcium Level (test code = 80980-6) 8.1 8.4-10.2 L [facility] TexasMagnesium Uddyo5300-04-50 03:33:00* Test Item Value Reference Range Interpretation Comments Magnesium Level (test code = 15459-9) 2.3 1.3-2.1 H [facility] TexasMagnesium [id number] 03:33:00* Test Item Value Reference Range Interpretation Comments Magnesium Level (test code = 72075-4) 2.3 1.3-2.1 H [facility] TexasWhite Blood Kngzk1007-78-09 03:21:00* Test Item Value Reference Range Interpretation Comments White Blood Count (test code = 6690-2) 20.59 4.8-10.8 H [facility] of TexasRed Blood Vtfuv1998-20-52 03:21:00* Test Item Value Reference Range Interpretation Comments Red Blood Count (test code = 789-8) 2.65 4.3-5.7 L [facility] TexasHemoglobin2019-04-06 03:21:00* Test Item Value Reference Range Interpretation Comments Hemoglobin (test code = 20235-6) 9.6 14.0-18.0 L [facility] TexasHematocrit2019-04-06 03:21:00* Test Item Value Reference Range Interpretation Comments Hematocrit (test code = 4544-3) 29.1 38.2-49.6 L [facility] of TexasMean Corpuscular [id number] 03:21:00* Test Item Value Reference Range Interpretation Comments Mean Corpuscular Volume (test code = 787-2) 109.8 81-99 H [facility] TexasMean Corpuscular Bmhawnefjw6964-25-71 03:21:00* Test Item Value Reference Range Interpretation Comments Mean Corpuscular Hemoglobin (test code = 785-6) 36.2 28-32 H [facility] of TexasMean Corpuscular Hemoglobin Concent 2018-06-01 03:21:00* Test Item Value Reference Range Interpretation Comments Mean Corpuscular Hemoglobin Concent (test code = 786-4) 33.0 31-35 [facility] TexasRed Cell Distribution Otmih5995-89-78 03:21:00* Test Item Value Reference Range Interpretation Comments Red Cell Distribution Width (test code = 83893-8) 13.3 11.7 -14.4 [facility] of TexasPlatelet Wjnac8393-12-10 03:21:00* Test Item Value Reference Range Interpretation Comments Platelet Count (test code = 777-3) 321 140-360 [facility] TexasNeutrophils (%) (Auto)2018-06-01 03:21:00 * Test Item Value Reference Range Interpretation Comments Neutrophils (%) (Auto) (test code = 51737-0) 91.1 38.7-80.0 H [facility] of TexasLymphocytes (%) (Auto)2018-06-01 03:21:00 * Test Item Value Reference Range Interpretation Comments Lymphocytes (%) (Auto) (test code = 736-9) 3.4 18.0-39.1 L [facility] TexasMonocytes (%) (Auto)2018-06-01 03:21:00* Test Item Value Reference Range Interpretation Comments Monocytes (%) (Auto) (test code = 5905-5) 2.9 4.4-11.3 L [facility] TexasEosinophils (%) (Auto)2018-06-01 03:21:00 * Test Item Value Reference Range Interpretation Comments Eosinophils (%) (Auto) (test code = 713-8) 0.0 0.0-6.0 [facility] TexasBasophils (%) (Auto)2018-06-01 03:21:00* Test Item Value Reference Range Interpretation Comments Basophils (%) (Auto) (test code = 706-2) 0.2 0.0-1.0 [facility] of TexasIM GRANULOCYTES %2018-06-01 03:21:00* Test Item Value Reference Range Interpretation Comments IM GRANULOCYTES % (test code = IM GRANULOCYTES %) 2.4 0.0- 1.0 H [facility] TexasNeutrophils # (Auto)2018-06-01 03:21:00* Test Item Value Reference Range Interpretation Comments Neutrophils # (Auto) (test code = 751-8) 18.8 2.1-6.9 H [facility] of TexasLymphocytes # (Auto)2018-06-01 03:21:00* Test Item Value Reference Range Interpretation Comments Lymphocytes # (Auto) (test code = 02173-1) 0.7 1.0-3.2 L [facility] TexasMonocytes # (Auto)2018-06-01 03:21:00* Test Item Value Reference Range Interpretation Comments Monocytes # (Auto) (test code = 742-7) 0.6 0.2-0.8 [facility] TexasEosinophils # (Auto)2018-06-01 03:21:00* Test Item Value Reference Range Interpretation Comments Eosinophils # (Auto) (test code = 711-2) 0.0 0.0-0.4 [facility] TexasBasophils # (Auto)2018-06-01 03:21:00* Test Item Value Reference Range Interpretation Comments Basophils # (Auto) (test code = 704-7) 0.1 0.0-0.1 [facility] of TexasAbsolute Immature Granulocyte (auto 2018-06-01 03:21:00* Test Item Value Reference Range Interpretation Comments Absolute Immature Granulocyte (auto (doug t code = Absolute Immature Granulocyte (auto) 0.49 0-0.1 H [facility] of TexasArterial Blood [id number] 00:17:00* Test Item Value Reference Range Interpretation Comments Arterial Blood pH (test code = 2744-1) 7.34 7.31-7.41 [facility] of TexasArterial Blood Partial Pressure CO2 2018-06-01 00:17:00* Test Item Value Reference Range Interpretation Comments Arterial Blood Partial Pressure CO2 (test code = 2018-8) 49 41-51 [facility] of TexasArterial Blood Partial Pressure O2 2018-06-01 00:17:00* Test Item Value Reference Range Interpretation Comments Arterial Blood Partial Pressure O2 (test code = 2019-8) 77 80-105 L [facility] of TexasArterial Blood [id number] 00:17:00* Test Item Value Reference Range Interpretation Comments Arterial Blood HCO3 (test code = 1960-4) 27 23-28 [facility] of TexasArterial Blood Base Zjxhym7372-25-39 00:17:00* Test Item Value Reference Range Interpretation Comments Arterial Blood Base Excess (test code = 1925-7) 1.0 -2-3 [facility] of TexasArterial Blood Oxygen Saturation 2018-06-01 00:17:00* Test Item Value Reference Range Interpretation Comments Arterial Blood Oxygen Saturation (test code = 2708-6) 94.0 95-98 L [facility] of TexasFiO22019-04-06 00:17:00* Test Item Value Reference Range Interpretation Comments FiO2 (test code = FiO2) 85 PT. ON [facility] 16, 440 +12 85[facility] TexasArterial Blood [id number] 00:17:00* Test Item Value Reference Range Interpretation Comments Arterial Blood pH (test code = 2744-1) 7.34 7.31-7.41 [facility] of TexasArterial Blood Partial Pressure CO2 2018-06-01 00:17:00* Test Item Value Reference Range Interpretation Comments Arterial Blood Partial Pressure CO2 (test code = 2018-8) 49 41-51 [facility] of TexasArterial Blood Partial Pressure O2 2018-06-01 00:17:00* Test Item Value Reference Range Interpretation Comments Arterial Blood Partial Pressure O2 (test code = 2018-) 77 80-105 L [facility] of TexasArterial Blood [id number] 00:17:00* Test Item Value Reference Range Interpretation Comments Arterial Blood HCO3 (test code = 1960-4) 27 23-28 [facility] of TexasArterial Blood Base Vlmkzt5578-15-27 00:17:00* Test Item Value Reference Range Interpretation Comments Arterial Blood Base Excess (test code = 1925-7) 1.0 -2-3 [facility] of TexasArterial Blood Oxygen Saturation 2018-06-01 00:17:00* Test Item Value Reference Range Interpretation Comments Arterial Blood Oxygen Saturation (test code = 2708-6) 94.0 95-98 L [facility] of TexasFiO22019-04-06 00:17:00* Test Item Value Reference Range Interpretation Comments FiO2 (test code = FiO2) 85 PT. ON [facility] 16 440 +[address] [place], [place] [address]CT CHEST W 2018-05-31 15:20:00 [place] [address] Patient Name: INDRA GALVAN MR #: [id number] : 1980 Age/Sex: 37/M Req #: [id number] Adm Physician: KIET DUMAS MD Ordered by: DAVID HORTON Report #: [id number] Location: ICU Room/Bed: ICU [facility] Procedure: 0405-[address]/CT CHEST W Exam Date: 05/31/18 Exam Time: 1430 REPORT STATUS: Signed CT chest pulmonary embolism protocol CPT code: 33512 INDICATION: Intubated, ev aluate for pulmonary embolus; suspected infection f/u [id number] TECHNIQUE: Thin collimation axial images obtained through [...] 3:37 PM Dictated By: BENJAMIN VALERIO MD 1537 Transcribed By : CATERINA on 05/31/18 1537 COPY TO: DAVID HORTON Hepatitis Be Ysvpjyzg7795-94-21 08:40:00* Test Item Value Reference Range Interpretation Comments Hepatitis Be Antibody (test code = 93621-3) Negative Negative Performed at: [facility] [id number] Pocket Operator: Esdras Lemon MD, Phone: [phone] [facility]on Medical Center at [facility] University of TexasHepatitis Be Aoybkfzr2440-32-75 08:40:00* Test Item Value Reference Range Interpretation Comments Hepatitis Be Antibody (test code = 81705-6) Negative Negative Performed at: [facility] [id number] Pocket Operator: Esdras Lemon MD, Phone: [phone] Seton Medical Center at The University of TexasHIV-1 RNA, Quantitative copies/[id number] 08:39:00* Test Item Value Reference Range Interpretation Comments HIV-1 RNA, Quantitative copies/mL (test code = 90904-8) <20 . HIV-1 RNA not detectedThe reportable range for this assay is 20 to 10,000,000cop ies HIV-1 RNA/mL.[facility] TexasHIV-1 RNA, Quantitative copies/[id number] 08:39:00* Test Item Value Reference Range Interpretation Comments HIV-1 RNA, Quantitative copies/mL (test code = 23845-6) <20 . HIV-1 RNA not detectedThe reportable range for this assay is 20 to 10,000,000cop ies HIV-1 RNA/mL.[facility] TexasDifferential Total Cells Qqrxazt0706-59-72 07:07:00* Test Item Value Reference Range Interpretation Comments Differential Total Cells Counted (test code = Differen tial Total Cells Counted) 100 [facility] TexasNeutrophils % (Manual)2018-05-31 07:07:00 * Test Item Value Reference Range Interpretation Comments Neutrophils % (Manual) (test code = 75255-8) 84 40-74 H [facility] of TexasLymphocytes % (Manual)2018-05-31 07:07:00 * Test Item Value Reference Range Interpretation Comments Lymphocytes % (Manual) (test code = 737-7) 3 19-48 L [facility] TexasMonocytes % (Manual)2018-05-31 07:07:00* Test Item Value Reference Range Interpretation Comments Monocytes % (Manual) (test code = 744-3) 10 3.4-9.0 H [facility] TexasEosinophils % (Manual)2018-05-31 07:07:00 * Test Item Value Reference Range Interpretation Comments Eosinophils % (Manual) (test code = 714-6) 3 0-7 [facility] TexasPlatelet Zsehrhwr3282-64-93 07:07:00* Test Item Value Reference Range Interpretation Comments Platelet Estimate (test code = 63961-4) ADEQUATE [facility] TexasPlatelet Morphology Tdbplrl2749-64-61 07:07:00* Test Item Value Reference Range Interpretation Comments Platelet Morphology Comment (test code = 06202-0) NORMAL [facility] TexasHypochromasia2019-04-05 07:07:00* Test Item Value Reference Range Interpretation Comments Hypochromasia (test code = 728-6) SLIGHT [facility] TexasAnisocytosis2019-04-05 07:07:00* Test Item Value Reference Range Interpretation Comments Anisocytosis (test code = 702-1) MODERATE [facility] TexasMacrocytosis2019-04-05 07:07:00* Test Item Value Reference Range Interpretation Comments Macrocytosis (test code = 738-5) MODERATE [facility] TexasRed Cell Morphology Acupryn3159-66-55 07:07:00* Test Item Value Reference Range Interpretation Comments Red Cell Morphology Comment (test code = 6742-1) ABNORMAL [facility] TexasDifferential Total Cells Counted 2018-05-31 07:07:00* Test Item Value Reference Range Interpretation Comments Differential Total Cells Counted (test code = Differen tial Total Cells Counted) 100 [facility] TexasNeutrophils % (Manual)2018-05-31 07:07:00 * Test Item Value Reference Range Interpretation Comments Neutrophils % (Manual) (test code = 60624-4) 84 40-74 H [facility] TexasLymphocytes % (Manual)2018-05-31 07:07:00 * Test Item Value Reference Range Interpretation Comments Lymphocytes % (Manual) (test code = 737-7) 3 19-48 L [facility] TexasMonocytes % (Manual)2018-05-31 07:07:00* Test Item Value Reference Range Interpretation Comments Monocytes % (Manual) (test code = 744-3) 10 3.4-9.0 H [facility] TexasEosinophils % (Manual)2018-05-31 07:07:00 * Test Item Value Reference Range Interpretation Comments Eosinophils % (Manual) (test code = 714-6) 3 0-7 [facility] TexasPlatelet Stujmiyq8890-72-35 07:07:00* Test Item Value Reference Range Interpretation Comments Platelet Estimate (test code = 53739-5) ADEQUATE [facility] TexasPlatelet Morphology Uudkiua6576-00-93 07:07:00* Test Item Value Reference Range Interpretation Comments Platelet Morphology Comment (test code = 48310-4) NORMAL [facility] TexasHypochromasia2019-04-05 07:07:00* Test Item Value Reference Range Interpretation Comments Hypochromasia (test code = 728-6) SLIGHT [facility] TexasAnisocytosis2019-04-05 07:07:00* Test Item Value Reference Range Interpretation Comments Anisocytosis (test code = 702-1) MODERATE [facility] TexasMacrocytosis2019-04-05 07:07:00* Test Item Value Reference Range Interpretation Comments Macrocytosis (test code = 738-5) MODERATE [facility] TexasRed Cell Morphology Cofhiia1679-54-96 07:07:00* Test Item Value Reference Range Interpretation Comments Red Cell Morphology Comment (test code = 6742-1) ABNORMAL [facility] TexasTotal Lpfedwaqn8911-70-09 06:43:00* Test Item Value Reference Range Interpretation Comments Total Bilirubin (test code = 1975-2) 17.5 0.2-1.2 H [facility] TexasAspartate Amino Transf (AST/SGOT) 2018-05-31 06:43:00* Test Item Value Reference Range Interpretation Comments Aspartate Amino Transf (AST/SGOT) (test code = Aspartate Amino Transf (AST/SGOT)) 97 5-34 H [facility] TexasAlanine Aminotransferase (ALT/SGPT) 2018-05-31 06:43:00* Test Item Value Reference Range Interpretation Comments Alanine Aminotransferase (ALT/SGPT) (test code = 1742-6) 28 0-55 [facility] TexasTotal Lsvabjc3347-50-92 06:43:00* Test Item Value Reference Range Interpretation Comments Total Protein (test code = 2885-2) 6.1 6.5-8.1 L [facility] TexasAlbumin2019-04-05 06:43:00* Test Item Value Reference Range Interpretation Comments Albumin (test code = 1751-7) 1.7 3.5-5.0 L [facility] TexasGlobulin2019-04-05 06:43:00* Test Item Value Reference Range Interpretation Comments Globulin (test code = 38365-5) 4.4 2.3-3.5 H [facility] TexasAlbumin/Globulin Nfrcg6046-15-63 06:43:00 * Test Item Value Reference Range Interpretation Comments Albumin/Globulin Ratio (test code = 1759-0) 0.4 0.8-2.0 L [facility] TexasAlkaline Hkzjziszqeo6055-81-03 06:43:00* Test Item Value Reference Range Interpretation Comments Alkaline Phosphatase (test code = 6768-6) 149 40-150 [facility] TexasCHEST SINGLE (PORTABLE)2018-05-31 05:31:00 [facility] [address] [place] [address] Patient Name: INDRA GALVAN MR #: [id number] : 1980 Age/Sex: 37/M Req #: [id number] Adm Physician: KIET DUMAS MD Ordered by: MANDEEP MARIE MD Report #: [id number] Location: ICU Room/Bed: ICU [facility] Procedure: 0405-000 3 DX/CHEST SINGLE (PORTABLE) Exam [...] FLORES MD on 05/31/18531 Transcribed By: DIONY RAN on 05/31/18531 COPY TO: MANDEEP MARIE MD Urine Lrqcpygmki9510-82-80 01:57:00* Test Item Value Reference Range Interpretation Comments Urine Osmolality (test code = 2695-5) 353 . 24 hr : 300 - 900 Random: 50 - 1400 After 12hr fluid restriction: >850Performed at: [email or web address] [address] [id number] Director: Alli Georges MD, Phone: [phone] [facility] University of TexasUrine Osmolality 2018-05-31 01:57:00* Test Item Value Reference Range Interpretation Comments Urine Osmolality (test code = 2695-5) 353 . 24 hr : 300 - 900 Random: 50 - 1400 After 12hr fluid restriction: >850Performed at: [facility] - [facility] [address] [id number] Director: Alli Georges MD, Phone: [phone] [facility]on [facility] Center at [facility] University of TexasIR BNBMPOO8103-08-35 17:22:00 [facility] [address], [place] [address] Patient Name: INDRA GALVAN MR #: [id number] : 1980 Age/Sex: 37/M Req #: [id number] Adm Physician: KIET DUMAS MD Ordered by: MANDEEP MARIE MD Report #: [id number] Location: ICU Room/Bed: ICU [facility] Procedure: 0404-004 8 DX/IR CONSULT Exam Date: [...] a 0.018 " skinny wire. A 5 [place]alander micropuncture sheat h was then placed and through the micropuncture sheath a 0.035 " Amplatz super stiff wire placed centrally. Dilatation with a 7 [place] Rajesh dilator was a ccomplished. A 7 [place] Arrow triple-lumen 20 cm long central line was then pl aced over the Amplatz wire. Each lumen was flushed with saline. Catheter se cured to the skin with 3-0 Ethilon. Post procedure chest x-ray was ordere d. Impression: Successful placement of a triple-lumen central line. Signed by: Dr. Kandi Anand DO on 05/30/2018 5:31 PM Dictated By: Randall ANAND DO 30 Tr anscribed By: CATERINA on 05/30/181730 COPY TO: MANDEEP MARIE MD NON-TUNNELLED CVC CATH XMBBNOI4292-99-40 17:22:00 [place] [address] Patient Name: INDRA GALVAN MR #: [id number] : 1980 Age/Sex: 37/M Req #: [id number] Adm Physician: KIET DUMAS MD Ordered by: MANDEEP MARIE MD Report #: [id number] Location: ICU Room/Bed: ICU [facility] Procedure: 0404-000 3 IR/NON-TUNNELLED CVC CATH PLACMNT [...] 0.018 " skinny wire . A 5 [place]ander micropuncture sheath was then placed and through the micropunctur e sheath a 0.035 " Amplatz superstiff wire placed centrally. Dilatation with a 7 [place] Rajesh dilator was accomplished. A 7 [place] Arrow triple-lumen 20 cm long central line was then placed over the Amplatz wire. Each lumen was flushed with saline. Catheter secured to the skin with 3-0 Ethilon. Post procedure chest x-ray was ordered. Impression: Successful placement of a triple-lumen central line. Signed by: Dr. Kandi Anand DO on 05/31/19 5:31 PM Dictated By: KANDI ANAND DO 30 Transcribed By: CATERINA on 05/30/181730 INDUSTRIAL SAFETY AND HEALTH TECHNICIAN Y TO: MANDEEP MARIE MD US GUIDANCE FOR VASCULAR ZVNYZ2159-21-88 17:22:00 [place] [address] Patient Name: INDRA GALVAN MR #: [id number] : 1980 Age/Sex: 37/M Req #: [id number] Adm Physician: KIET DUMAS MD Ordered by: MANDEEP MARIE MD Report #: [id number] Location: ICU Room/Bed: ICU [facility] Procedure: 0404-001 8 US/US GUIDANCE FOR VASCULAR [...] 0.018 " skinny wire . A 5 [place] Zealander micropuncture sheath was then placed and through the micropunctur e sheath a 0.035 " Amplatz superstiff wire placed centrally. Dilatation with a 7 [place] Rajesh dilator was accomplished. A 7 [place] Arrow triple-lumen 20 cm long central line was then placed over the Amplatz wire. Each lumen was flushed with saline. Catheter secured to the skin with 3-0 Ethilon. Post procedure chest x-ray was ordered. Impression: Successful placement of a triple-lumen central line. Signed by: Dr. Kandi Anand DO on 05/31/19 5:31 PM Dictated By: KANDI ANAND DO 30 Transcribed By: CATERINA on 05/30/181730 INDUSTRIAL SAFETY AND HEALTH TECHNICIAN Y TO: MANDEEP MARIE MD Blood Qxwgxyj2401-38-32 17:10:00* Test Item Value Reference Range Interpretation Comments Blood Culture (test code = 10704096) NO GROWTH AFTER 72 HOURS [facility] XRAY LINE MTQJAFTWH2924-61-67 15:38:00 [facility] [address] [place] [address] Patient Name: INDRA GALVAN MR #: [id number] : 1980 Age/Sex: 37/M Req #: [id number] Adm Physician: KIET DUMAS MD Ordered by: KANDI ANAND DO Report #: [id number] Location: ICU Room/Bed: ICU [facility] Procedure: 8653-5125 DX/CHEST XRAY LINE PLACEMENT Exam Date: Exam Time: REPORT STATUS: Signed EXAM: [address] XRAY LINE PLACEMENT, AP Portable DATE: [...] KANDI ANAND DO CHEST SINGLE (PORTABLE)2018-05-30 14:49:00 [place] [address] Patient Name: INDRA GALVAN MR #: [id number] : [birth year] Age/Sex: 37/M Req #: [id number] Adm Physician: KIET DUMAS MD Ordered by: MARITZA SANTANA MD Report #: [id number] Location: ICU Room/Bed: ICU [facility] Procedure: 0272-2550 DX/CHEST SINGLE (PORTABLE) Exam Date: 05/30/18 Exam [...] ANAND DO 50 Transcribed By: CATERINA on 05/30/18 145 COPY TO: MARITZA SANTANA MD Urine Legionella Mzdyyfx3943-21-49 12:08:00* Test Item Value Reference Range Interpretation Comments Urine Legionella Antigen (test code = 98317-1) Negative Negativ e Presumptive negative for L. pneumophila serogroup 1 antigenin urine, suggesting no recent or current infection.Legionnaires' disease cannot be ruled out since o therserogroups and species may also cause disease.Performed at: [facility] [address] [id number] Director: Esdras Lemon MD, Phone: [phone] [facility] of TexasUrine Legionella Oxjphig3474-26-64 12:08:00* Test Item Value Reference Range Interpretation Comments Urine Legionella Antigen (test code = 32998-9) Negative Negativ e Presumptive negative for L. pneumophila serogroup 1 antigenin urine, suggesting no recent or current infection.Legionnaires' disease cannot be ruled out since o therserogroups and species may also cause disease.Performed at: [facility] [address] [place] [id number] Director: Esdras Lemon MD, Phone: [phone] [facility] of TexasHepatitis C Ijownisl0569-20-76 11:20:00* Test Item Value Reference Range Interpretation Comments Hepatitis C Antibody (test code = 93116-8) 0.1 0.0-0.9 Negative: < 0.8 Indeterminate: 0.8 - 0.9 Positive: > 0.9 The CDC recommends that a positive HCV antibody result be followed up with a HCV Nucleic Acid Amplification test (126862).Performed at: [facility] Propanc [address] [place] [id number] Director: Alli Georges MD, Phone: [phone] [facility] of TexasHepatitis C Lewbzefj8022-84-62 11:20:00* Test Item Value Reference Range Interpretation Comments Hepatitis C Antibody (test code = 44446-8) 0.1 0.0-0.9 Negative: < 0.8 Indeterminate: 0.8 - 0.9 Positive: > 0.9 The CDC recommends that a positive HCV antibody result be followed up with a HCV Nucleic Acid Amplification test (437190).Performed at: [facility] [employer] [place] [id number] Director: Alli Georges MD, Phone: [phone] Seton [facility] Center [facility] University of TexasUrine MKM5322-59-02 11:03:00* Test Item Value Reference Range Interpretation Comments Urine WBC (test code = 5821-4) 11-20 0-5 H [facility] TexasUrine AAP7534-60-79 11:03:00* Test Item Value Reference Range Interpretation Comments Urine RBC (test code = 30038-4) NONE 0-5 [facility] TexasUrine Lqmojdff9966-27-46 11:03:00* Test Item Value Reference Range Interpretation Comments Urine Bacteria (test code = 05474-6) FEW NONE [facility] TexasUrine Epithelial Zlcmx8761-64-02 11:03:00 * Test Item Value Reference Range Interpretation Comments Urine Epithelial Cells (test code = 88179-4) RARE NONE [facility] TexasUrine Transitional Epithelial Cells 2018-05-30 11:03:00* Test Item Value Reference Range Interpretation Comments Urine Transitional Epithelial Cells (test code = 8249-5) FEW NONE [facility] TexasUrine Transitional Epithelial Cells 2018-05-30 11:03:00* Test Item Value Reference Range Interpretation Comments Urine Transitional Epithelial Cells (test code = 8249-5) FEW NONE [facility] TexasUrine Xwifd0081-54-06 10:31:00* Test Item Value Reference Range Interpretation Comments Urine Color (test code = 5778-6) RED YELLOW H [facility] TexasUrine Uhohqwz0562-80-41 10:31:00* Test Item Value Reference Range Interpretation Comments Urine Clarity (test code = 43572-1) SL CLOUDY CLEAR H [facility] TexasUrine Specific Pntpnwn9213-40-14 10:31:00 * Test Item Value Reference Range Interpretation Comments Urine Specific [place] (test code = 5811-5) 1.020 1.010-1.02 5 [facility] TexasUrine bD3950-78-70 10:31:00* Test Item Value Reference Range Interpretation Comments Urine pH (test code = 15484-7) 6 5-7 [facility] TexasUrine Leukocyte Zxmunjre5766-52-76 10:31:00* Test Item Value Reference Range Interpretation Comments Urine Leukocyte Esterase (test code = 5799-2) NEGATIVE NEGATIVE [facility] TexasUrine Haznqsr9917-23-91 10:31:00* Test Item Value Reference Range Interpretation Comments Urine Nitrite (test code = 76279-9) POSITIVE NEGATIVE [facility] Ttbrgja5236-69-97 10:31:00* Test Item Value Reference Range Interpretation Comments Urine Protein (test code = 5804-0) TRACE NEGATIVE H [facility] TexasUrine Glucose (UA)2018-05-30 10:31:00* Test Item Value Reference Range Interpretation Comments Urine Glucose (UA) (test code = 2349-9) NEGATIVE NEGATIVE [facility] TexasUrine Qbjxkzw3221-71-63 10:31:00* Test Item Value Reference Range Interpretation Comments Urine Ketones (test code = 47995-3) NEGATIVE NEGATIVE [facility] TexasUrine Utvpaknrlyrc2847-28-93 10:31:00* Test Item Value Reference Range Interpretation Comments Urine Urobilinogen (test code = 48879-3) 1 0.2-1 [facility] TexasUrine Bhblzlwpl4158-28-67 10:31:00* Test Item Value Reference Range Interpretation Comments Urine Bilirubin (test code = 1978-6) 3+ NEGATIVE H Confirmatory test currently unavailable. False positive results may occur.[facility] TexasUrine Kibjb3673-19-54 10:31:00* Test Item Value Reference Range Interpretation Comments Urine Blood (test code = 58143-1) NEGATIVE NEGATIVE [facility] TexasFolate2019-04-03 08:07:00* Test Item Value Reference Range Interpretation Comments Folate (test code = 2284-8) 30.1 7.0-15.4 H [facility] TexasFolate2019-04-03 08:07:00* Test Item Value Reference Range Interpretation Comments Folate (test code = 2284-8) 30.1 7.0-15.4 H [facility] TexasCHEST SINGLE (PORTABLE)2018-05-29 07:58:00 [facility] [address] [place] [address] Patient Name: INDRA GALVAN MR #: [id number] : 1980 Age/Sex: 37/M Req #: [id number] Adm Physician: KIET DUMAS MD Ordered by: KIRT SCHULTZ MD Report #: [id number] Location: [place] [address] Room/Bed: [facility] Procedure: 5101-8912 DX /CHEST SINGLE (PORTABLE) Exam Date: 05/29/18 [...] Comments Vitamin B12 Level (test code = 42270-9) 1700 213-816 H [facility] TexasVitamin B12 Qhgkd0886-42-26 07:19:00* Test Item Value Reference Range Interpretation Comments Vitamin B12 Level (test code = 68427-2) 1700 213-816 H [facility] TexasIron Bbbwy4594-64-48 07:07:00* Test Item Value Reference Range Interpretation Comments Iron Level (test code = 2498-4) 61 65-175 L [facility] TexasTotal Iron Binding Cquxrdkl8651-10-58 07:07:00* Test Item Value Reference Range Interpretation Comments Total Iron Binding Capacity (test code = 2500-7) 116 261-4 78 L [facility] TexasPercent Iron Bedkcnmull3155-12-07 07:07:00* Test Item Value Reference Range Interpretation Comments Percent Iron Saturation (test code = 2502-3) 53 15-50 H [facility] TexasTransferrin2019-04-03 07:07:00* Test Item Value Reference Range Interpretation Comments Transferrin (test code = 3034-6) 83 174-364 L [facility] TexasIro Dyckp7779-45-27 07:07:00* Test Item Value Reference Range Interpretation Comments Iron Level (test code = 2498-4) 61 65-175 L [facility] TexasTotal Iron Binding Oujhicmt1034-54-93 07:07:00* Test Item Value Reference Range Interpretation Comments Total Iron Binding Capacity (test code = 2500-7) 116 261-4 78 L [facility] TexasPercent Iron Vkxtgjdpwe3333-56-17 07:07:00* Test Item Value Reference Range Interpretation Comments Percent Iron Saturation (test code = 2502-3) 53 15-50 H [facility] TexasTransferrin2019-04-03 07:07:00* Test Item Value Reference Range Interpretation Comments Transferrin (test code = 3034-6) 83 174-364 L [facility] TexasMyelocytes %2018-05-29 07:06:00* Test Item Value Reference Range Interpretation Comments Myelocytes % (test code = 749-2) 1 0-0 H [facility] TexasMyelocytes %2018-05-29 07:06:00* Test Item Value Reference Range Interpretation Comments Myelocytes % (test code = 749-2) 1 0-0 H [facility] TexasPercent Reticulocyte Trifu9336-65-76 06:26:00* Test Item Value Reference Range Interpretation Comments Percent Reticulocyte Count (test code = 97978-4) 6.4 0.8-2 .2 H [facility] TexasPerad[facility] Reticulocyte Dplfz4291-88-91 06:26:00* Test Item Value Reference Range Interpretation Comments Percent Reticulocyte Count (test code = 23147-7) 6.4 0.8-2 .2 H [facility] TexasHeour lady of bellefonte hospitaltis Be Xnquxpe6354-98-78 05:14:00* Test Item Value Reference Range Interpretation Comments Hepatitis Be Antigen (test code = 84969-7) Negative Negative [facility] B Core Total Jbbmthfk4832-99-21 05:14:00* Test Item Value Reference Range Interpretation Comments Hepatitis B Core Total Antibody (test code = 08571-3) Negative Negative Performed at: [address] [id number] Director: Alli Georges MD, Phone: [phone] Saint [facility] [place] B Surface Aymhlrq0312-64-20 05:14:00* Test Item Value Reference Range Interpretation Comments Hepatitis B Surface Antigen (test code = 5196-1) Negative Negat mumtaz [facility] TexasHevalley [facility] Be Yjlujjd5189-92-38 05:14:00* Test Item Value Reference Range Interpretation Comments Hepatitis Be Antigen (test code = 99956-6) Negative Negative [facility] B Core Total Ffewzjns0082-28-01 05:14:00* Test Item Value Reference Range Interpretation Comments Hepatitis B Core Total Antibody (test code = 55038-0) Negative Negative Performed at: [address] [id number] Director: Alli Georges MD, Phone: [phone] Saint [facility] [place] B Surface Wytfkpb5570-69-64 05:14:00* Test Item Value Reference Range Interpretation Comments Hepatitis B Surface Antigen (test code = 5196-1) Negative Negat mumtazBaylor Scott & White [facility] WaxahachieProthrombin Igox9674-44-65 00:09:00* Test Item Value Reference Range Interpretation Comments Prothrombin Time (test code = 5902-2) 15.5 11.9-14.5 H [facility] TexasProthromb Time International Ratio 2018-05-29 00:09:00* Test Item Value Reference Range Interpretation Comments Prothromb Time International Ratio (test code = 6301-6) 1.17 Oral Anticoagulant Therapy INR Values:1. Low Intensity Therapy 1.5 - 2.02 . Moderate Intensity Therapy 2.0 - 3.03. High Intensity Therapy(1) 2.5 - 3. 54. High Intensity Therapy(2) 3.0 - 4.05. Panic Value INR > 5.0 [facility] TexasHIV (1&2) Wqdwlrdy2294-46-98 17:13:00* Test Item Value Reference Range Interpretation Comments HIV (1&2) Antibody (test code = 92791-6) NON-REACTIVE NONREACTIVE [facility] TexasHI P24 Aopwaqs2653-67-61 17:13:00* Test Item Value Reference Range Interpretation Comments HIV P24 Antigen (test code = HIV P24 Antigen) NON-REACTIVE NONREACT MUMTAZ [facility] TexasHIV (1&2) Oxxjhgzs5906-58-87 17:13:00* Test Item Value Reference Range Interpretation Comments HIV (1&2) Antibody (test code = 72907-9) NON-REACTIVE NONREACTIVE [facility] TexasHI P24 Jlbikzn8004-09-90 17:13:00* Test Item Value Reference Range Interpretation Comments HIV P24 Antigen (test code = HIV P24 Antigen) NON-REACTIVE NONREACT MUMTAZ [facility] University of TexasCT CHEST QT3787-92-84 12:56:00 [facility] [address] [place] [address] Patient Name: INDRA GALVAN MR #: [id number] : 1980 Age/Sex: 37/M Req #: [id number] Adm Physician: KIET DUMAS MD Ordered by: MANDEEP MARIE MD Report #: [id number] [facility]: [facility] Room/Bed: [facility] Procedure: 0402-[address]/CT CHEST WO [...] 1308 COPY TO: MANDEEP MARIE MD Amylase Xtzzt6315-38-74 09:09:00* Test Item Value Reference Range Interpretation Comments Amylase Level (test code = 1798-8) 24 25-125 L [facility] TexasLipase2019-04-02 09:09:00* Test Item Value Reference Range Interpretation Comments Lipase (test code = 3040-3) 28 78 [facility] TexasAmylase Vgwzp8508-44-41 09:09:00* Test Item Value Reference Range Interpretation Comments Amylase Level (test code = 1798-8) 24 25-125 L [facility]2019-04-[facility] 09:09:00* Test Item Value Reference Range Interpretation Comments Lipase (test code = 3040-3) 28 [facility] 2 [id number] 06:24:00 [facility] [address] [address] Patient Name: INDRA GALVAN MR #: [id number] : 1980 Age/Sex: 37/M Req #: [id number] Adm Physician: KIET DUMAS MD Ordered by: ANAYA BUSTAMANTE MD Report #: [id number] Location: MED/SURG3 Room/Bed: [facility] Procedure: 0402-0 010 DX/CHEST 2 VIEWS [...] COPY TO: ANAYA BUSTAMANTE MD CT ABDOMEN/PELVIS [id number] 20:09:00 [address] [address] Patient Name: INDRA GALVAN MR #: [id number] : 1980 Age/Sex: 37/M Req #: [id number] Adm Physician: KIET DUMAS MD Ordered by: ANAYA BUSTAMANTE MD Report #: [id number] Location: [facility] Room/Bed: [place] [address] Procedure: 0401-[address]/CT ABDOMEN/PELVIS W Exam [...] on 05/27/182039 COPY TO: ANAYA BUSTAMANTE MD [id number] 19:50:00 [address] [address] Patient Name: INDRA GALVAN MR #: [id number] : 1980 Age/Sex: 37/M Req #: [id number] Adm Physician: KIET DUMAS MD Ordered by: ANAYA BUSTAMANTE MD Report #: [id number] Location: [facility] Room/Bed: [place] [address] Procedure: 0401-0 013 US/US GALLBLADDER Exam Date: [...] TO: ANAYA BUSTAMANTE MD B- Type Natriuretic [id number] 17:56:00* Test Item Value Reference Range Interpretation Comments B-Type Natriuretic Peptide (test code = 69175-3) 221.6 0-100 H [facility] TexasInflu[facility] Virus Types A,B Antigen 2018-05-27 17:30:00* Test Item Value Reference Range Interpretation Comments Influenza Virus Types A,B Antigen (test code = 81114-5) NEGATIVE NEGATIVE [facility] Virus Types A,B Antigen 2018-05-27 17:30:00* Test Item Value Reference Range Interpretation Comments Influenza Virus Types A,B Antigen (test code = 86298-5) NEGATIVE NEGATIVE [facility] TexasTroponin [id number] 17:28:00* Test Item Value Reference Range Interpretation Comments Troponin I (test code = DUW6871) 0.010 0-0.300 [facility] TexasLactic Acid [id number] 17:20:00* Test Item Value Reference Range Interpretation Comments Lactic Acid Level (test code = Lactic Acid Level) 26.5 4.5- 19.8 Results repeated and called to Alina at 1720 on 05/27/18 by Kalin Almanza. Read matt ck and verified.[facility] 2 [id number] 15:47:00 [address] [address] Patient Name: INDRA GALVAN MR #: [id number] : 1980 Age/Sex: 37/M Req #: [id number] Adm Physician: Ordered by: ANAYA BUSTAMANTE MD Report #: [id number] Location: ER Room/Bed: Procedure: 1969-0484 DX/CHEST 2 VIEWS Exam Date: Exam Time: [...] 3:50 PM Dictated By: SONIA Jeffery MD [id number] Transcribed By: CATERINA on 05/27/18 1041 COPY TO: ANAYA BUSTAMANTE MD
[2019-10-18 09:38] LABS: CREATINE KINASE MB 0.4 ng/mL (0-5.0)
[2019-10-18] MEDS ORDERED: POTASSIUM CHLORIDE 20MEQ/15ML UDC PO ONE (09:45)
[2019-10-18] MEDS: OCTREOTIDE ACETATE 500 MCG in SODIUM CHLORIDE 0.9% 250ML 249 ML IV SCH ×2 (09:51→21:23)
--- OUTSIDE RECORDS SUMMARY | 2019-10-18 10:32 | XMS REPORT | Clinical Summary ---
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
--- OUTSIDE RECORDS SUMMARY | 2019-10-18 10:33 | XMS REPORT | Clinical Summary ---
Author Author PATY FluoroPharmaWest Valley Medical CenterSwipe.toForrest City Medical CenterGameriusKindred Hospital [facility] Address Unknown Phone Unavailable Care Team Providers Care Piano Regulator Name Role Phone Keith Hammond Unavailable Pcp, [...] Transplant Robbie New MD PERICARDIOCENTESIS 05/07/2019 Surgery Marj Malin MD [...] disease) on dialysis (HCC); Symptomatic anemia 05/04/2019 [facility] Cardiology - Encounter 05/10/2019 05/04/2019 Travel Marissa [...] Gena Gordon MD Mindikoglu, Ayse Leyla, MD [facility] Alcoholic hepatitis with ascites (Primar y Dx); [...] evaluation for end stage renal disease 02/03/2019 [facility] Radiology Encounter System, Provider Not In 02/03/2019 [...] 33.9 in adult; Portal hypertension (HCC) 12/21/2018 [facility] General Internal Tx dicine - Encounter 12/26/2018 12/21/2018 Orders Only General Internal Tx dicine 12/21/2018 Travel Jessie Emery Appointment ([facility] for manager of case Annika camacho (pt currently admitted @ [place]) Scheduled 12/17 clinic appt @ 9:30. Itinerary mailed to pt.) 11/18/2018 Telephone Transplant Jessie Philippe 11/12/2018 Documentation Transplant Hepatolo gy Nasra Cavazos 11/11/2018 Documentation Transplant Hepatolo gy Emma Silva CRNA 11/10/2018 Anesthesia Gastroenterology Event Devyn Lantigua MD COLONOSCOPY,BIOPSY 11/10/2018 Surgery Gastroenterology Nsara Cavazos 11/08/2018 Abstract Transplant Hepatolo gy Drake Garcia Jr., MD 11/07/2018 Abstract Transplant Hepatolo gy Delores Rucker MD 10/19/2018 Anesthesia Gastroenterology Event Shy Parisi MD COLONOSCOPY,BIOPSY 10/19/2018 Surgery Gastroenterology 10/17/2018 Orders Only General Internal Tx Minal Andrews MD Neason, Chau Le, MD [...] liver failure with hepatic coma (HCC) 10/16/2018 [facility] Internal Tx dicine - Encounter 11/15/2018 after 10/17/2018 Family [...] unspecified vessel or lesion type, unspecified whether [place] or transplanted heart (HCC) BODY FLUID CULTURE [...] ms QTC Calculatio n(Bazett) 490 ms R [place] 151 degrees T [place] -88 degrees Undetermi lara rhythm Left posterior [...] ms QTC Calculatio n(Bazett) 262 ms R [place] 153 degrees [place] -84 degrees Sinus tachycardi a with 1st [...] ms QTC Calculatio n(Bazett) 511 ms P [place] 254 degrees R [place] 46 degrees T [place] -73 degrees Atrial flutter with variable A-V [...] ms QTC Calculatio n(Bazett) 0 ms R [place] 0 degrees [place] 0 degrees No QRS complexes found, no [...] ms QTC Calculatio n(Bazett) 557 ms P [place] 45 degrees R [place] 33 degrees T [place] 29 degrees Normal sinus rhythm Nonspecifi c [...] Alcohol ic hepatitis with DIFFERENTIAL 9:34 AM FIELD CASHIER ascites ESRD on hemodialysis (HCC) PROTHROMBIN TIME/INR Routine 04/07/2019 Alcoholic hepatitis with 9:34 AM FIELD CASHIER ascites ESRD on hemodialysis (HCC) HEPATIC FUNCTION PANEL Routine 04/07/2019 Alcohol ic hepatitis with 9:34 AM FIELD CASHIER ascites ESRD on hemodialysis (HCC) CBC W/PLT COUNT & AUTO Routine 04/07/2019 Alcohol ic hepatitis with DIFFERENTIAL 9:34 AM FIELD CASHIER ascites ESRD on hemodialysis (HCC) BASIC METABOLIC PANEL (7) Routine 04/07/2019 Alco holic hepatitis with 9:34 AM FIELD CASHIER ascites ESRD on hemodialysis (HCC) CBC W/PLT COUNT & AUTO Routine 03/14/2019 Alcohol ic cirrhosis of DIFFERENTIAL 10:32 AM FIELD CASHIER liver without ascit es (HCC) PROTHROMBIN TIME/INR Routine 03/14/2019 Alcoholic cirrhosis of 10:32 AM FIELD CASHIER liver without ascites (HCC) CBC W/PLT COUNT & AUTO Routine 03/14/2019 Alcohol ic cirrhosis of DIFFERENTIAL 10:32 AM FIELD CASHIER liver without ascit es (HCC) HEPATIC FUNCTION PANEL Routine 03/14/2019 Alcohol ic cirrhosis of 10:32 AM FIELD CASHIER liver without ascites (HCC) BASIC METABOLIC PANEL (7) Routine 03/14/2019 Alco holic cirrhosis of 10:32 AM FIELD CASHIER liver without ascites (HCC) CBC W/PLT COUNT & AUTO Routine 03/04/2019 Iron de ficiency anemia, DIFFERENTIAL 10:00 AM FIELD CASHIER unspecified iron deficiency anemia type COMPREHENSIVE METABOLIC Routine 03/04/2019 Alcoho lic cirrhosis of PANEL 10:00 AM FIELD CASHIER liver with ascites (HCC) CBC W/PLT COUNT & AUTO Routine 03/04/2019 Iron de ficiency anemia, DIFFERENTIAL 10:00 AM FIELD CASHIER unspecified iron deficiency anemia type BILIRUBIN, DIRECT Routine 03/04/2019 Alcoholic ci rrhosis of 10:00 AM FIELD CASHIER liver with ascites (HCC) PROTHROMBIN TIME/INR Routine 03/04/2019 Alcoholic cirrhosis of 9:55 AM FIELD CASHIER liver with ascites (HCC) COMPREHENSIVE METABOLIC Routine 02/03/2019 Fatty liver PANEL 10:13 AM FIELD CASHIER BILIRUBIN, DIRECT Routine 02/03/2019 Fatty liver 10:13 AM FIELD CASHIER CBC W/PLT COUNT & AUTO Routine 02/03/2019 ESRD (e nd stage renal DIFFERENTIAL 10:12 AM FIELD CASHIER disease) (HCC) Acute blood loss anemia PROTHROMBIN TIME/INR Routine 02/03/2019 Fatty maru er 10:12 AM FIELD CASHIER CBC W/PLT COUNT & AUTO Routine 02/03/2019 ESRD (e nd stage renal DIFFERENTIAL 10:12 AM FIELD CASHIER disease) (HCC) Acute blood loss anemia US PELVIS WITH DOPPLER Routine 02/03/2019 ESRD (e nd stage renal 9:35 AM FIELD CASHIER disease) (HCC) Pre-transplant evaluation for end stage renal disease RHYTHM STRIP - SCAN 01/21/2019 11:42 AM FIELD CASHIER RHYTHM STRIP - SCAN 01/20/2019 4:02 PM FIELD CASHIER RHYTHM STRIP - SCAN 01/20/2019 4:02 PM FIELD CASHIER TRANSFUSION SERVICE 01/19/2019 REPORT - SCAN 6:00 PM FIELD CASHIER PREPARE LEUKO-REDUCED RBC Routine 01/18/2019 11:55 PM FIELD CASHIER TRANSFUSION SERVICE 01/18/2019 REPORT - SCAN 6:03 PM FIELD CASHIER VITAMIN B12 AND FOLATE Routine 01/18/2019 5:47 PM FIELD CASHIER HAPTOGLOBIN Routine 01/18/2019 5:47 PM FIELD CASHIER LACTATE DEHYDROGENASE Routine 01/18/2019 (LDH) 5:47 PM FIELD CASHIER IRON, TIBC, % SAT. Routine 01/18/2019 (WITHOUT FERRITIN) 5:47 PM FIELD CASHIER FERRITIN Routine 01/18/2019 5:47 PM FIELD CASHIER ULTRAFILTRATION HD CRRT Routine 01/18/2019 3:13 PM FIELD CASHIER HEMOGLOBIN AND HEMATOCRIT STAT 01/18/2019 11:17 AM FIELD CASHIER CBC (HEMOGRAM ONLY) Routine 01/18/2019 2:51 AM FIELD CASHIER TRANSFUSE LEUKO-REDUCED Routine 01/17/2019 RED BLOOD CELLS 11:33 PM FIELD CASHIER TRANSFUSE LEUKO-REDUCED Routine 01/17/2019 RED BLOOD CELLS 10:39 PM FIELD CASHIER HEMODIALYSIS INPATIENT Routine 01/17/2019 9:29 PM FIELD CASHIER TYPE AND SCREEN, Routine 01/17/2019 AUTOMATED 3:35 PM FIELD CASHIER CBC W/PLT COUNT & AUTO Routine 01/16/2019 Alcohol ic cirrhosis of DIFFERENTIAL 3:56 PM FIELD CASHIER liver without ascit es (HCC) AB SPECIFICITY CLASS I Routine 01/16/2019 ESRD (e nd stage renal 3:56 PM FIELD CASHIER disease) (HCC) Pre-transplant evaluation for end stage renal disease ALPHA FETOPROTEIN (AFP), Routine 01/16/2019 Alcoh olic cirrhosis of TUMOR MARKER 3:56 PM FIELD CASHIER liver without ascit es (HCC) PROTHROMBIN TIME/INR Routine 01/16/2019 Alcoholic cirrhosis of 3:56 PM FIELD CASHIER liver without ascites (HCC) CBC W/PLT COUNT & AUTO Routine 01/16/2019 Alcohol ic cirrhosis of DIFFERENTIAL 3:56 PM FIELD CASHIER liver without ascit es (HCC) HEPATIC FUNCTION PANEL Routine 01/16/2019 Alcohol ic cirrhosis of 3:56 PM FIELD CASHIER liver without ascites (HCC) BASIC METABOLIC PANEL (7) Routine 01/16/2019 Alco holic cirrhosis of 3:56 PM FIELD CASHIER liver without ascites (HCC) FLOW PRA CLASS II WITH Routine 01/16/2019 ESRD (e nd stage renal REFLEX TO ANTIBODY 3:56 PM FIELD CASHIER disease) (HCC) SPECIFICITY Pre-transplant evaluation for end stage renal disease FLOW PRA CLASS I WITH Routine 01/16/2019 ESRD (en d stage renal REFLEX TO ANTIBODY 3:56 PM FIELD CASHIER disease) (HCC) SPECIFICITY Pre-transplant evaluation for end stage renal disease HLA TYPING CII Routine 01/16/2019 ESRD (end stage renal 3:56 PM FIELD CASHIER disease) (HCC) Pre-transplant evaluation for end stage renal disease HLA TYPING CI Routine 01/16/2019 ESRD (end stage renal 3:56 PM FIELD CASHIER disease) (HCC) Pre-transplant evaluation for end stage renal disease RHYTHM STRIP - SCAN 01/08/2019 9:10 AM FIELD CASHIER TRANSFUSION SERVICE 01/06/2019 REPORT - SCAN 5:50 PM FIELD CASHIER HEPATIC FUNCTION PANEL Routine 01/06/2019 6:01 AM FIELD CASHIER PROTHROMBIN TIME/INR Routine 01/06/2019 6:01 AM FIELD CASHIER MAGNESIUM Routine 01/06/2019 6:01 AM FIELD CASHIER BASIC METABOLIC PANEL (7) Routine 01/06/2019 6:01 AM FIELD CASHIER CBC (HEMOGRAM ONLY) Routine 01/06/2019 6:01 AM FIELD CASHIER MISCELLANEOUS LAB ORDER Routine 01/06/2019 6:01 AM FIELD CASHIER PREPARE LEUKO-REDUCED RBC Routine 01/05/2019 11:54 PM FIELD CASHIER TRANSFUSION SERVICE 01/05/2019 REPORT - SCAN 5:50 PM FIELD CASHIER PROTHROMBIN TIME/INR Routine 01/05/2019 4:30 AM FIELD CASHIER HEPATIC FUNCTION PANEL Routine 01/05/2019 4:30 AM FIELD CASHIER MAGNESIUM Routine 01/05/2019 4:30 AM FIELD CASHIER BASIC METABOLIC PANEL (7) Routine 01/05/2019 4:30 AM FIELD CASHIER CBC (HEMOGRAM ONLY) Routine 01/05/2019 4:30 AM FIELD CASHIER PREPARE LEUKO-REDUCED RBC STAT 01/04/2019 11:54 PM FIELD CASHIER TRANSFUSION SERVICE 01/04/2019 REPORT - SCAN 5:53 PM FIELD CASHIER DRUG SCREEN, URINE, Routine 01/04/2019 TRANSPLANT 5:39 PM FIELD CASHIER DRUG SCREEN, URINE, Routine 01/04/2019 COMPREHENSIVE 5:39 PM FIELD CASHIER TRANSFUSE LEUKO-REDUCED Routine 01/04/2019 RED BLOOD CELLS 2:09 PM FIELD CASHIER ETHANOL Routine 01/04/2019 9:42 AM FIELD CASHIER CBC W/PLT COUNT & AUTO Routine 01/04/2019 DIFFERENTIAL 4:07 AM FIELD CASHIER CBC W/PLT COUNT & AUTO Routine 01/04/2019 DIFFERENTIAL 4:07 AM FIELD CASHIER HEPATIC FUNCTION PANEL Routine 01/04/2019 4:07 AM FIELD CASHIER BASIC METABOLIC PANEL (7) Routine 01/04/2019 4:07 AM FIELD CASHIER TRANSFUSE LEUKO-REDUCED STAT 01/04/2019 RED BLOOD CELLS 1:55 AM FIELD CASHIER TYPE AND SCREEN, STAT 01/03/2019 AUTOMATED 9:56 PM FIELD CASHIER CBC W/PLT COUNT & AUTO STAT 01/03/2019 DIFFERENTIAL 9:54 PM FIELD CASHIER PT/APTT STAT 01/03/2019 9:54 PM FIELD CASHIER HEPATIC FUNCTION PANEL STAT 01/03/2019 9:54 PM FIELD CASHIER BASIC METABOLIC PANEL (7) STAT 01/03/2019 9:54 PM FIELD CASHIER CBC W/PLT COUNT & AUTO STAT 01/03/2019 DIFFERENTIAL 9:54 PM FIELD CASHIER REPORT OF PROCEDURE - 12/31/2018 ENDOSCOPY SCAN 12:52 PM FIELD CASHIER TRANSFUSION SERVICE 12/27/2018 REPORT - SCAN 6:02 [...] ms QTC Calculatio n(Bazett) 541 ms P [place] 40 degrees R [place] 30 degrees T [place] 14 degrees Normal sinus rhythm Prolonged QT [...] included. Specimen Narrative Performed At FINAL REPORT [facility] MRI of the abdomen with and without [...] Report Verified Date/Time: 0 12:54:18 Reading Location: [address] Reading Room Procedure Note Interface, External [...] Report Verified Date/Time: 05/23/2019 12:54:18 Reading Location: [facility] [id number] Ortho Consult Reading Room Performing Organization Address City/State/Zipcode Ph one Number GE RIS * CBC with platelet count + automated diff (05/23/2019 9:03 AM CDT) Only the most recent of 59 results within the time period is included. WBC 7.3 3.5 - 10.5 K/L [facility] RBC 2.33 (L) 4.63 - 6.08 M/L [facility] Hemoglobin 7.3 (L) 13.7 - 17.5 GM/DL [facility] Hematocrit 22.0 (L) 40.1 - 51.0 % [facility] MCV 94.4 (H) 79.0 - 92.2 fL [facility] MCH 31.3 25.7 - 32.2 pg [facility] MCHC 33.2 32.3 - 36.5 GM/DL [facility] RDW 18.6 (H) 11.6 - 14.4 % [facility] Platelets 94 (L) 150 - 450 K/CU MM [facility] MPV 8.4 (L) 9.4 - 12.4 fL [facility] nRBC 0 0 - 0 /100 WBC [facility] % Neutros 69 % [facility] % Lymphs 18 % [facility] % Monos 9 % [facility] % Eos 3 % [facility] % Baso 1 % [facility] # Neutros 5.03 1.78 - 5.38 K/L [facility] # Lymphs 1.31 (L) 1.32 - 3.57 K/L [facility] # Monos 0.62 0.30 - 0.82 K/L [facility] # Eos 0.23 0.04 - 0.54 K/L [facility] # Baso 0.06 0.01 - 0.08 K/L [facility] Immature 0 0 - 1 % [facility] Granulocytes-Relative [facility] Specimen Blood Performing Organization Address City/State/Zipcode Ph one Number [address] MED[facility] CENTER * Prothrombin time/INR (05/23/2019 9:03 AM CDT) Only the most recent of 39 results within the time period is included. Protime 16.6 (H) 11.9 - 14.2 seconds [facility] INR 1.4 <=5.9 [facility] Specimen Blood Narrative Performed At Effective 07/24/2018: PT Reference Range Change [facility] New: 11.9-14.2Previous: 11.7-14.7 [facility] RECOMMENDED COUMADIN/WARFARIN INR THERA PY RANGES STANDARD DOSE: 2.0-3.0Includes: PRO PHYLAXIS for venous thrombosis, systemic embolization; TREATMENT for venous thro mbosis and/or pulmonary embolus. HIGH RISK: Target INR is 2.5-3.5 for pa torstens wiht mechanical heart valves. Performing Organization Address [facility] one Number [address] [facility] * Hepatic function panel (05/23/2019 9:03 AM CDT) Only the most recent of 41 results within the time period is included. Protein, Total 6.5 6.0 - 8.3 gm/dL [facility] Albumin 3.4 (L) 3.5 - 5.0 g/dL [facility] Total Bilirubin 5.4 (H) 0.2 - 1.2 mg/dL [facility] Bilirubin, Direct 2.6 (H) 0.1 - 0.5 mg/dL [facility] Alkaline Phosphatase 200 (H) 40 - 150 U/L [facility] AST 46 (H) 5 - 34 U/L [facility] ALT 12 6 - 55 U/L [facility] Specimen Blood Narrative Performed At Revenue Director ID - KAVONG [facility] Performing Organization Address City/[facility] one Number [address] [facility] * Basic Metabolic Panel (05/23/2019 9:03 AM CDT) Only the most recent of 47 results within the time period is included. Sodium 139 136 - 145 meq/L [facility] Potassium 3.3 (L) 3.5 - 5.1 meq/L [facility] Chloride 100 98 - 107 meq/L [facility] CO2 30 (H) 22 - 29 meq/L [facility] BUN 25 (H) 7 - 21 mg/dL [facility] Creatinine 2.87 (H) 0.57 - 1.25 mg/dL [facility] Glucose 112 (H) 70 - 105 mg/dL [facility] Calcium 8.5 8.4 - 10.2 mg/dL [facility] EGFR 25Comment: ESTIMATED GFR IS mL/min/1.73 sq m [facility] NOT ACCURATE CREATININE [facility] CLEARANCE IN PREDICTING GLOMERULAR FILTRATION RATE. ESTIMATED GFR IS NOT APPLICABLE FOR DIALYSIS PATIENTS. Specimen Blood Narrative Performed At Revenue Director ID - KAVONG [facility] Specimen [facility] Performing Organization Address City/[facility] Ph one Number [place] [address] [facility] * RHYTHM STRIP - SCAN (05/15/2019 4:11 [...] is n ot available. Performing Organization Address City/[facility] Ph one Number [facility] [address] [place], [place] * Bilirubin, direct (05/14/2019 9:30 AM CDT) Only the most recent of 4 results within the time period is included. Bilirubin, Direct 2.0 (H) 0.1 - 0.5 mg/dL [facility] Specimen Blood Performing Organization Address City/[facility] Ph one Number [address] [facility] * EKG-SCANNED (05/13/2019 11:03 AM CDT) Only [...] included. Phosphorus 3.4 2.3 - 4.7 mg/dL [facility] Specimen Blood Narrative Performed At Revenue Director ID - ULYSSES [facility] Performing Organization Address City/State/[facility] Ph one Number [facility] [address] [place] [address] [address] [facility] * Magnesium (05/10/2019 5:22 AM CDT) Only the most recent of 22 results within the time period is included. Magnesium 1.9 1.6 - 2.6 mg/dL [facility] Specimen Blood Narrative Performed At Revenue Director ID - ULYSSES Jang [facility] Performing Organization Address [facility] Ph one Number [address] [facility] * NM Myocardial Perfusion Pet/CT (Rest & Stress) (05/09/2019 2:55 PM CDT) Specimen Narrative Performed At FINAL REPORT Whois PROCEDURE: MYOCARDIAL PERFUSION PET HEAVENLY GING (Rest/Stress) CPT CODE: 91709 INDICATION: Assess symptoms/risk factor s of possible [...] Report Verified Date/Time: 0 16:05:35 Reading Location: [address] P[address] Reading Room Procedure Note Interface, External Ris In - 05/09/2019 4:07 PM CDT FINAL REPORT PROCEDURE: MYOCARDIAL PERFUSION PET IMAGING (Rest/Stress) CPT CODE: 41768 INDICATION: Assess symptoms/risk factors of possible CAD [...] Report Verified Date/Time: 05/09/2019 16:05:35 Reading Location: [address] Nuc Med Reading Room Performing Organization Address [facility] Ph one Number GE RIS * Treadmill [...] on 05/15/2019 10:24:47 PM Performing Organization Address [facility] Ph one Number GE MUSE * Comprehensive metabolic panel (05/09/2019 5:35 AM CDT) Only the most recent of 8 results within the time period is included. Protein, Total 6.1Comment: Specimen slightly 6.0 - 8.3 gm/dL [facility] Albumin 2.9 (L)Comment: Specimen 3.5 - 5.0 g/dL [facility] hemolyzed [facility] Alkaline Phosphatase 116 40 - 150 U/L [facility] Total Bilirubin 4.1 (H)Comment: Specimen 0.2 - 1.2 mg/dL [facility] hemolyzed [facility] Sodium 131 (L) 136 - 145 meq/L [facility] Potassium 3.9Comment: Specimen slightly 3.5 - 5.1 meq/L [facility] Chloride 99 98 - 107 meq/L [facility] CO2 23 22 - 29 meq/L [facility] BUN 22 (H) 7 - 21 mg/dL [facility] Creatinine 4.22 (H)Comment: Specimen 0.57 - 1.25 mg/dL [facility] slightly hemolyzed [facility] Glucose 108 (H) 70 - 105 mg/dL [facility] Calcium 8.1 (L) 8.4 - 10.2 mg/dL [facility] AST 30Comment: Specimen slightly 5 - 34 U/L [facility] ALT 8Comment: Specimen slightly 6 - 55 U/L [facility] EGFR 16Comment: ESTIMATED GFR IS mL/min/1.73 sq m [facility] NOT ACCURATE CREATININE [facility] CLEARANCE IN PREDICTING GLOMERULAR FILTRATION RATE. ESTIMATED GFR IS NOT APPLICABLE FOR DIALYSIS PATIENTS. Specimen Blood Narrative Performed At Revenue Director YOLANDA - ULYSSES M [facility] Specimen slightly icteric [facility] Performing Organization Address City/State/Zipcode Ph one Number [facility] [address] [place], [place] [address] [facility] * TRANSFUSION SERVICE REPORT - SCAN (05/08/2019 5:52 PM CDT) Only the most recent of 20 results within the time period is included. Narrative Performed At This result has an attachment that is n ot available. * Limited 2D Echocardiogram (05/08/2019 11:40 AM CDT) Ejection Fraction [facility] Specimen Narrative Performed At Transthoracic Echocardiography Report (TTE) [facility] ECH O HEARTLAB Demographics [facility] Patient Name INDRA GALVAN Date of Study 05/08/2019 YAN CORDERO [id number] Gender Male Visit Number [id number] Unknown [id number] Room Number 6213 Number Date of Birth1980 [...] (>60%) . Left AtriumLA s ize is dutj-bo-qdwgzlxdun enlarged . Right VentricleNormal r ight ventricle [...] 05/08/2019 YAN CORDERO Gender Male Visit Number [id number] Race Unknown Room Number 6213 Number Date of 1980 Referring Physician ROBBIE NEW Age 38 year(s) Boiler Fitter Renny Yepez Internet Consultant Nick Navarro Interpreting Physician MELVA Jackson Procedure [...] (>60%) . Left Atrium LA size is saoc-he-evaqnrthep enlarged . Right Ventricle Normal right ventricle [...] is included. Procalcitonin 3.64 (H) <0.05 ng/mL [facility] Specimen Blood Narrative Performed At SEPSIS RISK (ng/mL) [facility] Low:0.05-0.50 [facility] Intermediate: 0.51-2.00 High: >=2.01 Performing Organization Address City/State/Zipcode Ph one Number [facility] [address] [place], [place] [address] MEDICAL CENTER * Manual Differential (05/08/2019 3:02 AM CDT) Only the most recent of 17 results within the time period is included. % Neutros 74 % [facility] % Lymphs 12 % [facility] % Monos 9 % [facility] % Eos 2 % [facility] % Baso 3 % [facility] # Neutros 8.66 (H) 1.78 - 5.38 K/ul [facility] # Lymphs 1.40 1.32 - 3.57 K/ul [facility] # Monos 1.05 (H) 0.30 - 0.82 K/uL [facility] # Eos 0.23 0.04 - 0.54 K/uL [facility] # Baso 0.35 (H) 0.01 - 0.08 K/uL [facility] Total Counted 100 [facility] Platelet Morphology Normal [facility] Toxic Granulation Present [facility] Polychromasia 2+ moderate [facility] Hypochromia 1+ few [facility] Anisocytosis 1+ few [facility] Macrocytes 1+ few [facility] Poikilocytes 1+ few [facility] Malaga Cells 1+ few [facility] Artifact Present [facility] Platelet Conc Adequate [facility] Specimen Blood Narrative Performed At Revenue Director ID - Ivonne Gray [facility] User comments: [facility] Slide comments: Performing Organization Address [facility] one Number [facility] [address] [place] [address] [facility] * Prepare Leuko-Red RBC (05/07/2019 11:54 PM CDT) Only the most recent of 12 results within the time period is included. CROSSMATCH COMPATIBLE SAFETRACE TX Unit ABO B Pos SAFETRACE TX UNIT NUMBER [id number] SAFETRACE [place] Status TX_TIMEINCHART SAFETRACE [place] Blood Bank Product RED BLOOD CELLS [place] PRODUCT CODE [id number] [place] Specimen Other Performing Organization Address [facility] one Number [place]ACE [place] * PERIPHERAL VASCULAR [...] is included. Result No growth [facility] Gram Stain Result 1+ White blood cells seen [facility] Gram Stain Result No organisms seen [facility] Specimen Body Fluid Performing Organization Address [facility] one Number [address] 7[address] [facility] * Cytology (05/07/2019 7:20 PM CDT) Case Report Medical Cytology [facility] Case: [id number] Authorizing Provider:Robbie New MD Collected: 05/07/2019 1920 Ordering Location: [place] [address] CCUReceived: 05/08/19 20 0345 Pathologist: Josh Yang MD Specimen:Pericardial DIAGNOSIS PERICARDIAL FLUID (CYTOSPINS): [facility] - NEGATIVE FOR MALIGNANCY [facility] Signing Pathologist Direct Phone Line: [phone] CPT Code(s) 29797 [facility] CLINICAL DATA Pericardial effusion, [facility] cirrhosis [facility] SPECIMEN SOURCE PERICARDIAL FLUID [facility] GROSS DESCRIPTION 600 mls bloody fluid; 4 [facility] cytospins [facility] Collected: [id number] Received: [id number] STATEMENT OF ADEQUACY Satisfactory [facility] ALTH [facility] Gross assessment was [facility] performed at [place], Department of [facility]ASWANT TER Pathology, [address] [place] [address], Technical component was [facility] performed at [place], Department of [facility] Pathology, [address] [place] [address], Professional component [facility] was performed at [place], Department of [facility] JAS[facility]ANT TER Pathology, [address] [place] [address], Specimen Body Fluid Narrative Performed At This result has an attachment that is n ot available. Performing Organization Address City/State/Zipcode Ph one Number [address] 770 MEDICAL CENTER * 2D Echo W/Doppler(CW/PW/Color) (05/07/2019 6:32 PM CDT) Ejection Fraction [facility] ECHO HEARTLAB [facility] Specimen Narrative Performed At Transthoracic Echocardiography Report (TTE) [facility] ECH O HEARTLAB Demographics [facility] Patient Name INDRA GALVAN Date of Study05/07/2019 YAN CORDERO [id number] Gender Male Visit Number [id number] Unknown [id number] Room [id number] Number Date of Birth1980 Barron sanchez Age38 year(s)Chayito Gutierreznth Shady, Phys icianMD Fellow Indra zamora MD Procedure [...] 05/07/2019 YAN CORDERO Gender Male Visit Number [id number] Race Unknown Room Number 6213 Number Date of 1980 Referring Robbie New MD Physician Age 38 year(s) Boiler Fitter Aneudy Jerez Interpreting Physician MELVA Jackson Fellow [...] Performing Organization Address City/State/Zipcode Ph one Number [facility] ECHO HEARTLAB [facility] * Carotid doppler bilateral (05/06/2019 4:05 PM CDT) Ejection Fraction [facility] ECHO HEARTLAB [facility] Specimen Impressions Performed At Right Impression [facility] 1. The internal carotid artery is within normal limit s. [facility] 2. The external carotid artery is [...] At PV LAB - Carotid Duplex Study [facility] ECHO HEARTLAB Demographics [facility] Patient Name INDRA GALVAN Date of Study05/06/2019 RUSS VEE JR. [id number] Visit Number [id number] Gender Male Accession Number [id number] Date of Birth1980 [facility] Room [id number] PhysicianAGACNP SonographDagoberto Maki RVS Interpreting Josh Meeks [...] 05/06/2019 YAN CORDERO Age 38 Visit Number [id number] Gender Male Accession Number [id number] Date of 1980 Referring Karen Carranza Room Number 6213 Physician SARAH Boiler Fitter Cb Maki RVS Interpreting Karen Blackwell Physician [...] Performing Organization Address City/State/Zipcode Ph one Number [facility] ECHO HEARTDBA Group [facility] * REPORT OF PROCEDURE - ENDOSCOPY URL (05/06/2019 1:43 PM CDT) Narrative Performed At This result has an attachment that is n ot available. * 2D Echo W/Doppler(CW/PW/Color) (05/06/2019 1:06 PM CDT) Ejection Fraction [facility] ECHO HEARTLAB [facility] Specimen Narrative Performed At Transthoracic Echocardiography Report (TTE) [facility] ECH O HEARTLAB Demographics [facility] Patient NameINDRA GALVAN Date of Study05/06/2019 YAN Daniel Gender Male Visit [id number] Race Unknown Room [id number] Number Date of 1980 Barron plummer Age 38 year(s) [facility] Internet Consultant Joanna Whitley Interpreting Pratik Rubin MD Procedure [...] 05/06/2019 YAN CORDERO Gender Male Visit Number [id number] Race Unknown Room Number 2454 Number Date of 1980 Referring Robbie New MD Physician Age 38 year(s) Boiler Fitter Aneudy Jerez Internet Consultant Joanna Whitley Interpreting Pratik Alexis MD Procedure [...] 1.87 cm Aorta Ao Root S of Yasmni.: 3.07 cm Ascending Aorta: 3.29 cm Doppler/Quantitative [...] TR Gradient: 30.26 mmHg Performing Organization Address [facility] one Number SLE ECHO HEARTLAB MKCKESSON [facility] * Transfuse Leuko-Red RBC (05/06/2019 3:24 AM CDT) Only the most recent of 27 results within the time period is included. * Troponin I (05/05/2019 9:09 PM CDT) Only the most recent of 3 results within the time period is included. Troponin I <0.01 0.00 - 0.03 ng/mL [facility] Specimen Blood Narrative Performed At Troponin I (TnI) levels must be interpreted in the co ntext of the presenting [facility] symptoms and the clinical findings. Elevated TnI leve ls indicate myocardial [facility] damage, but are not specific for ischem ic heart disease. Elevated TnI levels are seen in patients with other cardiac con ditions (including myocarditis and congestive heart failure), and slight T nI elevations occur in patients with other conditions, including sepsis, tay al failure, acidosis, acute neurological disease, and persistent tachyarrhythmia . Revenue Director ID - BS Performing Organization Address City/State/Zipcode Ph one Number [facility] [address] [place], [place] 7[address] [facility] * ECG 12 lead (05/05/2019 8:53 PM CDT) Only the most recent of 6 results within the time period is included. Specimen Narrative Performed At Ventricular Rate 128 BPM GE MUSE Atrial Rate 89 BPM QRS Duration 94 ms Q-T Interval 336 ms QTC Calculation(Bazett) 490 ms R [place] 151 degrees T [place] -88 degrees Atrial fibrillation Left posterior fascicular [...] 336 ms QTC Calculation(Bazett) 490 ms R [place] 151 degrees T [place] -88 degrees Atrial fibrillation Left posterior fascicular [...] leads Confirmed by MD KLINE JOSEPH P ([id number]) on 05/06/2019 6:34:11 AM Performing Organization Address [facility] Ph one Number GE MUSE * Hepatitis B surface antigen (05/05/2019 3:02 PM CDT) Only the most recent of 3 results within the time period is included. HBsAg Screen Nonreactive Nonreactive [facility] Specimen Blood Narrative Performed At Revenue Director ID - BS [facility] Performing Organization Address [facility] Ph one Number [facility] [address] [place], [place] [address] 0 [phone] [place] [address] * Occult blood, stool (05/05/2019 12:07 PM CDT) Occult blood Negative Negative [facility] Specimen Stool Performing Organization Address [facility] one [place] [address] 0 [phone] [place] [address] * ABORH, manual (05/05/2019 9:51 AM CDT) ABO Grouping B [facility] Rh Factor POS [facility] Specimen Blood Performing Organization Address [facility] one [address] [address] [phone] [place] [address] * Iron, TIBC, % sat. (without ferritin) (05/05/2019 9:51 AM CDT) Only the most recent of 2 results within the time period is included. Iron 88.0 40.0 - 160.0 ug/dL [facility] TIBC 130 (L) 250 - 450 ug/dL [facility] Iron % Saturation 68 (H) 20 - 55 % [facility] Specimen Blood Narrative Performed At Revenue Director ID - PIAYA L [facility] Performing Organization Address [facility] one Number [place] [address] 0 [phone] [place] [address] * Reticulocyte count (05/05/2019 9:51 AM CDT) Only the most recent of 2 results within the time period is included. % Retic 2.3 (H) 0.5 - 1.8 % [facility] Specimen Blood Narrative Performed At Revenue Director ID - [id number] [facility] Performing Organization Address [facility] one Number [place] [address] 0 [phone] [place] [address] * Direct AHG (LUMA)/Direct Antonia (05/05/2019 9:51 AM CDT) Direct AHG-IGG NEGATIVE [facility] Direct AHG-C3B, C3D NEGATVIE [facility] Specimen Blood Performing Organization Address [facility] Ph one Number [address] * Ferritin (05/05/2019 9:51 AM CDT) Only the most recent of 2 results within the time period is included. Ferritin 1,081 (H) 5 - 275 ng/mL [facility] Specimen Blood Narrative Performed At Revenue Director ID - AAQUENTINID [facility] Performing Organization Address [facility] one [address] * Lactic acid, venous (05/05/2019 12:29 AM CDT) Only the most recent of 6 results within the time period is included. Lactate, Venous 2.6 (H) 0.5 - 2.2 mmol/L [facility] Specimen Blood Narrative Performed At Revenue Director ID - PIAYA L [facility] Specimen slightly icteric [facility] Performing Organization Address [facility] one [place] [address] [address] [phone] [place] [address] * Type and screen, automated ([facility] and CECs only) (05/04/2019 8:42 PM CDT) Only the most recent of 8 results within the time period is included. ABO/RH AUTOMATED (BEAKER) B POSITIVE [facility] Ab Scrn NEGATIVE [facility] Specimen Blood Performing Organization Address [facility] Ph one [place] [phone] [place] [address] * Urinalysis w/Microscopic + Reflex to Culture (05/04/2019 7:53 PM CDT) Only the most recent of 6 results within the time period is included. Color, UA Yellow [facility] Clarity, UA Hazy [facility] Specific [place], UA 1.011 1.001 - 1.035 [facility] pH, UA 5.5 5.0 - 8.0 [facility] Protein, UA 100 mg/dL (A) Negative [facility] Glucose, UA 100 mg/dL (A) Negative [facility] Ketones, UA Negative Negative [facility] Bilirubin, UA Negative Negative [facility] Blood, UA Negative Negative [facility] Nitrite, UA Negative Negative [facility] Leukocytes, UA Negative Negative [facility] Urobilinogen, UA 0.2 0.2 - 1.0 mg/dL [facility] RBC, UA 7 /HPF [facility] WBC, UA 12 /HPF [facility] Bacteria, UA Occasional [facility] Mucus Rare [facility] Squam Epithel, UA 18 /HPF [facility] Hyaline Casts, UA 78 /LPF [facility] Casts 70 /LPF [facility] Crystals, Urine Occasional [facility] Yeast Moderate [facility] Specimen Source [facility] Specimen Urine Narrative Performed At Revenue Director ID - [auto] [facility] Revenue Director ID - tech [facility] Performing Organization Address City/State/[facility] one Number [address] [facility] * Strep pneumoniae antigen (05/04/2019 7:53 PM CDT) Strep pneumoniae Antigen Presumptive negative for Presumptive negative for [facility] pneumococcal pneumonia - see pneumococcal pneumonia - [facility] comment see comment, Presumptive negative for pneumococcal meningitis - see comment Specimen Urine Narrative Performed At Presumptive negative for pneumococcal p neumonia, suggesting no current or recent [facility] pneumococcal infection. Infection due t o S. pneumoniae cannot be ruled out since [facility] the antigen present in the sample may b e below the detection limit of the test. Performing Organization Address [facility] one Number [place] [address] [facility] * Legionella antigen, urine (05/04/2019 7:53 PM CDT) Legionella Urine Antigen Negative - see commentComment: [facility] Negative for L. pneumophila [facility] serogroup 1 antigen, suggesting no recent or current infection with this serogroup. Legionellosis cannot be ruled out since other serogroups and species may cause disease. Specimen Urine Performing Organization Address [facility] one Number [address] [facility] * Urine culture (05/04/2019 7:53 PM CDT) Only the most recent of 2 results within the time period is included. Result <10,000 col/mL skin chase [facility] Specimen Urine Performing Organization Address [facility] one Number [address] [facility] * PT/aPTT (05/04/2019 7:29 PM CDT) Only the most recent of 4 results within the time period is included. Protime 18.9 (H) 11.9 - 14.2 seconds [facility] INR 1.6 <=5.9 [facility] PTT 40.7 (H) 22.5 - 36.0 seconds [facility] Specimen Blood Narrative Performed At Effective 07/24/2018: PT Reference Range Change [facility] New: 11.9-14.2Previous: 11.7-14.7 [facility] RECOMMENDED COUMADIN/WARFARIN INR THERA PY RANGES STANDARD DOSE: 2.0-3.0Includes: PRO PHYLAXIS for venous thrombosis, systemic embolization; TREATMENT for venous thro mbosis and/or pulmonary embolus. HIGH RISK: Target INR is 2.5-3.5 for pa tients wiht mechanical heart valves. Performing Organization Address [facility] one [place] [address] [facility] * Blood Culture - Routine (Left Venipuncture) (05/04/2019 7:29 PM CDT) Only the most recent of 16 results within the time period is included. Result No growth in 5 days [facility] Specimen Blood Performing Organization Address [facility] one [place] [address] 0 [phone] [place] [address] * B-type Natriuretic Factor (BNP) (05/04/2019 7:29 PM CDT) BNP 612 (H) 0 - 100 pg/mL [facility] Specimen Blood Narrative Performed At Revenue Director ID - DB [facility] Performing Organization Address [facility] one [place] [address] [facility] * Rapid Influenza A&B Screen (05/04/2019 7:28 PM CDT) Rapid Influenza A Antigen Negative Negative, Inconclusi ve [facility] Rapid influenza B Antigen Negative Negative, Inconclusi ve [facility] Specimen Nasal Performing Organization Address City/State/Zipcode Ph one Number [facility] [address] [place], [place] [address] MEDICAL CENTER * CRITICAL CARE [...] Report Verified Date/Time: 0 18:08:08 Reading Location: [facility] B1 C013T Transit onpa Reading Room Procedure Note Interface, External Ris [...] Report Verified Date/Time: 05/04/2019 18:08:08 Reading Location: [facility] B1 C013T Transitional Reading Room Performing Organization Address City/State/Zipcode Ph one Number GE RIS * US pelvis with doppler (02/03/2019 9:35 AM FIELD CASHIER) Specimen Narrative Performed At FINAL REPORT GE [...] iliac artery measures 1.0 cm. The left biology intern al iliac artery is not visualized. The bilateral common and external iliac veins are patent. IMPRESSION: Unremarkable pelvic vascula ture. Signed: Keith Garcia MD Report Verified Date/Time: 9 11:35:01 Reading Location: [address] Radiolo gy Reading Room Procedure Note Interface, External Ris In - 02/03/2019 11:37 AM FIELD CASHIER FINAL REPORT Pelvic ultrasound dated 02/03/2019. COMMENT: [...] Report Verified Date/Time: 02/03/2019 11:35:01 Reading Location: [address] Radiology Reading Room Performing Organization Address City/[facility] Ph one Number GE RIS * Vitamin B12 and Folate (01/18/2019 5:47 PM FIELD CASHIER) Only the most recent of 2 results within the time period is included. Vitamin B12 1,988 (H) 213 - 816 pg/mL [facility] Folate 17.8 >=7.0 ng/mL [facility] Specimen Blood Performing Organization Address [facility] one Number [address] [facility] * Lactate dehydrogenase (LDH) (01/18/2019 5:47 PM FIELD CASHIER) Only the most recent of 3 results within the time period is included. LDH 192 125 - 220 U/L [facility] Specimen Blood Performing Organization Address [facility] one Number [address] [facility] * Haptoglobin (01/18/2019 5:47 PM FIELD CASHIER) Only the most recent of 3 results within the time period is included. Haptoglobin 14 14 - 258 mg/dL [facility] Specimen Blood Performing Organization Address [facility] one Number [address] [facility] * Hemoglobin and hematocrit (01/18/2019 11:17 AM FIELD CASHIER) Only the most recent of 3 results within the time period is included. Hemoglobin 7.5 (L) 13.7 - 17.5 GM/DL [facility] Hematocrit 23.0 (L) 40.1 - 51.0 % [facility] Specimen Blood Performing Organization Address [facility] one Number [address] [facility] * CBC (Hemogram only) (01/18/2019 2:51 AM FIELD CASHIER) Only the most recent of 5 results within the time period is included. WBC 6.6 3.5 - 10.5 K/L [facility] RBC 2.11 (L) 4.63 - 6.08 M/L [facility] Hemoglobin 6.7 (L) 13.7 - 17.5 GM/DL [facility] Hematocrit 20.2 (L) 40.1 - 51.0 % [facility] MCV 95.7 (H) 79.0 - 92.2 fL [facility] MCH 31.8 25.7 - 32.2 pg [facility] MCHC 33.2 32.3 - 36.5 GM/DL [facility] RDW 17.3 (H) 11.6 - 14.4 % [facility] Platelets 74 (L) 150 - 450 K/CU MM [facility] MPV 10.1 9.4 - 12.4 fL [facility] nRBC 0 0 - 0 /100 WBC [facility] Specimen Blood Performing Organization Address City/State/Zipcode Ph one Number [facility] [address] [place], [place] [address] [facility] * HLA TYPING CII (01/16/2019 3:56 PM FIELD CASHIER) HLA-DR AG1 15 [facility] HLA TESTING HLA-DR AG2 4 [facility] HLA TESTING HLA-DR AG4-2 53 [facility] HLA TESTING HLA-DR AG5-1 51 [facility] HLA TESTING HLA-DQA1 AG 1-1 01 [facility] HLA TESTING HLA-DQA1 AG 1-2 03 [facility] HLA TESTING HLA-DQB1 AG 1-1 6 [facility] HLA TESTING HLA-DQB1 AG 1-2 8 [facility] HLA TESTING HLA-DPA1 AG 1-1 01 [facility] HLA TESTING HLA-DPA1 AG 1-2 01 [facility] HLA TEST[facility] HLA-DPB1 AG 1-1 02:01 [facility] HLA TEST[facility] HLA-DPB1 AG 1-2 04:02 [facility] HLA TEST[facility] Specimen Blood Narrative Performed At Disclaimer: [facility] HLA TESTING This test was developed and its perform ance characteristics determined by the [facility]. It has not been cleared or [...] complexity clinical laboratory testing. Performing Organization Address [facility] one Number [facility] HLA TESTING ONE [facility] [place], [place]: [id number], [place] [address] CLIA#[id number] CAP#[id number] UNOS#[id number] * HLA TYPING CI (01/16/2019 3:56 PM FIELD CASHIER) HLA-A AG1 3 [facility] HLA TESTING HLA-A AG2 68 [facility] HLA TESTING HLA-B AG1 7 [facility] HLA TESTING HLA-B AG2 35 [facility] HLA TESTING HLA-C AG1 7 [facility] HLA TESTING HLA-C AG2 7 [facility] HLA TESTING HLA-B BW1 6 [facility] HLA TESTING HLA-B BW2 6 [facility] HLA TEST[facility] Specimen Blood Narrative Performed At Disclaimer: [facility] HLA TEST[facility] This test was developed and its perform ance characteristics determined by the [facility]. It has not been cleared or [...] complexity clinical laboratory testing. Performing Organization Address [facility] one Number [facility] HLA TESTING ONE [facility] Yovany, MS: [id number], [place] [address] CLIA#[id number] CAP#[id number] UNOS#[id number] * FLOW PRA CLASS II WITH REFLEX TO ANTIBODY SPECIFICITY (01/16/2019 3:56 PM FIELD CASHIER) Flow Class II Percent 0 [facility] HLA TESTI NG Positive Specimen Blood Narrative Performed At Disclaimer: [facility] HLA TESTING This test was developed and its perform ance characteristics determined by the [facility]. It has not been cleared or [...] complexity clinical laboratory testing. Performing Organization Address [facility] one Number [facility] HLA TESTING ONE Gregorio Pedroza, MS: [id number], [place] [address] CLIA#[id number] CAP#[id number] UNOS#[id number] * FLOW PRA CLASS I WITH REFLEX TO ANTIBODY SPECIFICITY (01/16/2019 3:56 PM FIELD CASHIER) Flow Class I Percent 20 [facility] HLA TESTIN G Positive Specimen Blood Narrative Performed At Disclaimer: [facility] HLA TESTING This test was developed and its perform ance characteristics determined by the [facility]. It has not been cleared or [...] complexity clinical laboratory testing. Performing Organization Address [facility] one Number [facility] HLA TESTING ONE Gregorio Pedroza, MS: [id number], [place] [address] CLIA#[id number] CAP#[id number] UNOS#[id number] * AB SPECIFICITY CLASS I (01/16/2019 3:56 PM FIELD CASHIER) AB Specificity Class I NO CLASS I ANTIBODY DETECTED BAYL OR HLA TESTING WITH MFIs > 4000 Specimen Blood Narrative Performed At Disclaimer: [facility] HLA TESTING This test was developed and its perform ance characteristics determined by the [facility]. It has not been cleared or [...] complexity clinical laboratory testing. Performing Organization Address [facility] one Number [facility] HLA TESTING ONE Gregoriofaviola Pedroza, MS: [id number], [place] [address] CLIA#[id number] CAP#[id number] UNOS#[id number] * Alpha fetoprotein (AFP), tumor marker (01/16/2019 3:56 PM FIELD CASHIER) Alpha-Fetoprotein 2.7 <10.0 ng/mL [facility] Specimen Blood Performing Organization Address [facility] one Number [place] [address] [facility] * Drug screen, urine, transplant (01/04/2019 5:39 PM FIELD CASHIER) Specimen Urine Narrative Performed At This result has an attachment that is n ot available. Performing Organization Address [facility] one Number [id number] [phone] * Drug screen, urine, comprehensive (01/04/2019 5:39 PM FIELD CASHIER) Only the most recent of 2 results within the time period is included. Specimen Urine Narrative Performed At This result has an attachment that is n ot available. * Ethanol (01/04/2019 9:42 AM FIELD CASHIER) Only the most recent of 2 results within the time period is included. Ethanol Lvl <10 <=10 mg/dL [facility] Specimen Blood Performing Organization Address [facility] one Number [place] [address] [facility] * Vancomycin level, random (12/26/2018 3:56 AM CDT) Only the most recent of 2 results within the time period is included. Vancomycin Rm 16.4 ug/mL [facility] Specimen Blood Narrative Performed At Reference Range: No Normals [facility] Performing Organization Address City/State/Zipcode Ph one Number [facility] [address] [place] [phone] MEDICAL CENTER * Venous doppler legs bilateral (12/24/2018 6:55 PM CDT) Ejection Fraction [facility] Specimen Impressions Performed At Right Impression [facility] E[facility] HEART[facility] 1. There is no deep venous obstruction in the common femoral, profunda [facility] femoral, femoral, popliteal, posterior tibial or [...] PV LAB - Lower Extremities DVT Study [facility] ECHO HEART LAB [facility] Patient Name INDRA GALVAN Date of Study12/24/2018 RUSS VEE JR. [id number] Visit Number [id number] Gender Male Accession Number [id number] Date of Birth1980 Vlad Naranjo [id number] Physician SonographerGregorio V. Shanthi RVS Interpreting Physician [...] 12/24/2018 YAN CORDERO Age 38 Visit Number [id number] Gender Male Accession Number [id number] Date of 1980 Referring Audie Hoyt MD Room Number 7604 Physician Boiler Fitter Cb Maki S Interpreting Karen Blackwell, Physician [...] are measured in cm Performing Organization Address City/State/[facility] Ph one Number [facility] ECHO HEARTLAB [facility] * HEMODIALYSIS INPATIENT (12/23/2018 11:25 PM [...] CDT) Specimen Narrative Performed At FINAL REPORT [facility] CT right lower extremity. CLINICAL HISTORY: Knee trauma, tenderne ss or effusion, initial exam (Age > 1y) TECHNIQUE: Contiguous axial images of t he right lower extremity without contrast with coronal and sagit chely reformations. This exam was performed according to the [facility] dose optimization program which includes automated exposure [...] Verified Date/Time: 12/23/2018 03:00:15 Performing Organization Address City/[facility] one Number GE [facility] * Vancomycin level, trough (12/22/2018 4:26 PM CDT) Vancomycin Tr 40.3 (HH) 10.0 - 20.0 ug/mL [facility] Specimen Blood Performing Organization Address [facility] one Number [address] [facility] * Fibrinogen (12/22/2018 3:55 AM CDT) Fibrinogen 195 (L) 225 - 434 mg/dl [facility] Specimen Blood Performing Organization Address [facility] one Number [address] [address] [facility] * POC-Lactic Acid, Venous (12/21/2018 4:01 AM CDT) Only the most recent of 2 results within the time period is included. POC-Lactic Acid, Venous 1.6Comment: TESTED AT [facility] 0.9 - 1.7 mmol/L [address] [address] [facility] Specimen Blood Performing Organization Address [facility] one Number [address] [facility] * Ammonia (12/21/2018 2:48 AM CDT) Only the most recent of 2 results within the time period is included. Ammonia 65 18 - 72 mol/L [facility] Specimen Blood Performing Organization Address [facility]/Zipcode Ph one Number [facility] [address] [place], [place] [address] [facility] CENTER * XR knee complete [...] Verified Date/Time: 12/21/2018 01:49:02 Performing Organization Address City/State/[facility] Ph one Number [facility] * CRITICAL CARE (12/21/2018 1:10 AM CDT) Narrative Performed At Víctor Dumont MD 12/244:23 AM Critical Care Performed by: Víctor Dumont MD Authorized by: Víctor Dumont M D Total critical care time: 60 minutes Critical care time was exclusive of sep arately billable procedures and treating other patients and teaching ti ky. Critical care was necessary to treat or [...] AM CDT) % Neutros (manual) 80 % [facility] % Lymphs (manual) 6 % [facility] % Monos (manual) 7 % [facility] % Eos (manual) 4 % [facility] % Baso (manual) 0 % [facility] % Bands (manual) 3 0 - 10 % [facility] # Neutros (manual) 15.76 (H) 1.80 - 8.00 K/L [facility] # Lymphs (manual) 1.18 (L) 1.48 - 4.50 K/L [facility] # Monos (manual) 1.38 (H) 0.00 - 1.30 K/L [facility] # Eos (manual) 0.79 (H) 0.00 - 0.50 K/L [facility] # Baso (manual) 0.00 0.00 - 0.20 K/L [facility] # Bands (manual) 0.6 0.0 - 0.8 K/L [facility] Total Counted 100 [facility] Bands plus Segmented 16.35 [facility] Neutrophils [facility] WBC Morphology Normal [facility] Platelet Morphology Normal [facility] TH [facility] Anisocytosis 2+ moderate [facility] Malaga Cells 2+ moderate [facility] Poikilocytes 1+ few [facility] Specimen Blood Performing Organization Address City/State/Zipcode Ph one Number [facility] [address] [place], [place] [address] MEDICAL CENTER * IR Tunneled [...] my direction. Total intra-service time of sedation [id number]. The patient's vital signs were monitore d throughout the procedure and recorded in the patient's medical recor d by the nurse. Director Of Occupational Health:Regis Ortega MD. Director Construction Services:None. Approach: Right internal jugular vein Estimated blood [...] Report Verified Date/Time: 9 10:01:43 Reading Location: [place] [id number] Angio Bod y Reading Room Procedure Note [...] the patient's medical record by the nurse. Director Of Occupational Health: Regis Ortega MD. Director Construction Services: None. Approach: Right internal jugular vein Estimated [...] by blunt dissection. A 19 cm right Italian Duraflow 2 catheter was brought through the [...] Report Verified Date/Time: 11/15/2018 10:01:43 Reading Location: [facility] P048 Angio Body Reading Room Performing Organization [...] Report Verified Date/Time: 9 23:58:30 Reading Location: [facility] C013W Consult Reading Room Procedure Note Interface, [...] Report Verified Date/Time: 11/12/2018 23:58:30 Reading Location: [address] Consult Reading Room Performing Organization Address [facility] Ph one Number GE RIS * Protein, random urine (11/12/2018 1:55 AM CDT) Protein, Urine 122 (H) 0 - 14 mg/dL [facility] Specimen Urine Performing Organization Address [facility] Ph one Number [place] [address] [facility] * Creatinine, random urine (11/12/2018 1:55 AM CDT) Only the most recent of 2 results within the time period is included. Creatinine, Ur 225.8 mg/dL [facility] Specimen Urine Narrative Performed At Reference Range: No Normals [facility] Performing Organization Address [facility] Ph one Number [address] [facility] * REPORT OF PROCEDURE - ENDOSCOPY URL (11/10/2018 2:04 PM CDT) Narrative Performed At This result has an attachment that is n ot available. * Tissue Exam (11/10/2018 1:25 PM CDT) Only the most recent of 2 results within the time period is included. Case Report Surgical Path[facility] Case: [id number] Authorizing Provider:Devyn Lantigua MDCollected: 11/10/2018 1325 Ordering Location: [address] Received: 11/11/2018 0818 Service Pathologist: Be Arenas MD Specimens: A) - Polyp, Colon - Sigmoid, sigmoid polyp bx B) - Cecum, cecum ulcer bx ADDENDUM Immunostains for HSV1, HSV2, [facility] and CMV performed on block [address] are negative. DIAGNOSIS PART A SIGMOID COLON POLYP, [facility] POLYPECTOMY: [facility] HYPERPLASTIC POLYP. PART B CECUM BIOPSY FOR SUSPECTED ULCER: NONSPECIFIC ACTIVE COLITIS WITH ULCERATION AND REGENERATIVE FEATURES. NEGATIVE FOR GRANULOMAS, DYSPLASIA, OR INVASIVE CARCINOMA. NO MORPHOLOGIC OR IMMUNOPHENOTYPIC EVIDENCE OF LYMPHOMA. SEE DIAGNOSTIC COMMENT. IMMUNOSTAINS FOR VIRAL MARKERS PENDING, ADDENDUM TO FOLLOW. Signing Pathologist Direct Phone Line: [phone] COMMENT PART B: Immunohistochemical [facility] studies performed on block [address] demonstrate the lymphoid population to be positive for CD20 positive B cells and CD3/CD5 positive T cells. There is no aberrant co-expression of CD20 and CD5. Cyclin D1 is negative. There is no morphologic or immunophenotypic evidence of lymphoma. CPT Code(s) 44295z6, 09830, 85517p1 [facility] CLINICAL HISTORY Colon polyps [facility] HEALT H [facility] SPECIMEN SOURCE A. Sigmoid polyp biopsy. B. [facility] Cecum ulcer biopsy [facility] GROSS DESCRIPTION Part A. Received in formalin [facility] labeled with the patient's [facility] name, accession number and "polyp, colon-sigmoid" is a 0.2 cm guajardo soft tissue fragment, which is submitted in toto in A1. Part B. Received in formalin labeled with the patient's name, accession number and "cecum" are four irregular guajardo soft tissue fragments ranging 0.1-0.2 cm, which are submitted in toto in B1. CG/ew MICROSCOPIC DESCRIPTION Performed. [facility] SPECIAL STUDIES The interpretation of this [facility] case included the use of [facility] immunohistochemistry or special stains. BLOCK B1- HSV1, HSV2, CMV, CD20, CD3, CD5, CYCLIN D1 Control Slides Examined: In-house known positive controls were evaluated along with the test tissue. These control slides run alongside of the patients sample show appropriate staining. Internal positive and negative controls when available are evaluated Immunohistochemistry technical testing was performed at [facility], Pathology Laboratory where it was developed [...] Cecum structure (body structure) Performing Organization Address City/State/[facility] Cent[facility]ode Ph one Number [place] [phone] [place] [address] [facility] * HEMODIALYSIS INPATIENT (11/09/2018 3:25 [...] AM CDT) Yari Antigen Titer 1:2 [facility] Specimen Blood Performing Organization Address City/[facility] Ph one Number [facility] [address] [place], [place] [address] [facility] * Yari antigen with reflex to titer (11/08/2018 4:20 AM CDT) Yari Antigen Positive [facility] Specimen Blood Performing Organization Address City/[facility] Ph one Number [facility] [address] [place], [place] [address] [facility] * CT chest with high resolution/ild (11/08/2018 12:16 AM CDT) Specimen Narrative Performed At FINAL REPORT Whois CT of the chest, without contrast Clinical [...] Report Verified Date/Time: 9 11:29:31 Reading Location: [facility] C013X Ortho Co nsult Reading Room Procedure [...] Report Verified Date/Time: 11/08/2018 11:29:31 Reading Location: [facility] B1 C013X Ortho Consult Reading Room Performing Organization Address City/[facility] Cent[facility] Ph one Number GE RIS * Urinalysis w/Microscopic (11/05/2018 8:47 PM CDT) Color, UA Dark Yellow [facility] Clarity, UA Clear [facility] Specific [place], UA 1.012 1.001 - 1.035 [facility] pH, UA 6.0 5.0 - 8.0 [facility] Protein, UA 20 mg/dL (A) Negative [facility] Glucose, UA Negative Negative [facility] Ketones, UA Negative Negative [facility] Bilirubin, UA Positive (A) Negative [facility] Blood, UA Negative Negative [facility] Nitrite, UA Negative Negative [facility] Leukocytes, UA Negative Negative [facility] Urobilinogen, UA 3.0 (H) 0.2 - 1.0 mg/dL [facility] RBC, UA 0 /HPF [facility] WBC, UA 1 /HPF [facility] Bacteria, UA Occasional [facility] Mucus Rare [facility] Specimen Source Urine, Clean Catch [facility] Specimen Urine Performing Organization Address City/[facility] Cent[facility]ode Ph one Number [address] 0 [phone] [address] * Hepatitis B core antibody, total (11/05/2018 3:32 PM CDT) Hep B Core Total Ab Nonreactive Nonreactive [facility] Specimen Blood Performing Organization Address City/[facility] Ph one Number [address] 0 [phone] [place] [address] * Hepatitis B surface antibody (11/05/2018 3:32 PM CDT) Hep B S Ab <8.0 <8.0 mIU/mL [facility] Specimen Blood Performing Organization Address [facility] Ph one Number [address] * IR non-tunneled dialysis catheter insertion (11/05/2018 12:10 PM CDT) Specimen Narrative Performed At FINAL REPORT [facility] PROCEDURE: Non-tunneled dialysis cathet er placement Procedural [...] A sterile dressing was applied. Catheter placed: [place] Battery Systemson XL Catheter size (Italian): 14 Catheter length (cm): 15 Catheter flush: [...] Report Verified Date/Time: 9 19:49:40 Reading Location: [facility] B1 P048 Angio Bod y [...] applied. Catheter placed: Schon XL Catheter size (Italian): 14 Catheter length (cm): 15 Catheter flush: [...] Report Verified Date/Time: 11/05/2018 19:49:40 Reading Location: [facility] P048 Angio Body Reading Room Performing Organization Address City/[facility] Ph one Number RIS * Sodium, random urine (10/30/2018 8:42 PM CDT) Only the most recent of 2 results within the time period is included. Sodium Urine 34 meq/L [facility] Specimen Urine Narrative Performed At Reference Range: No Normals [facility] Performing Organization Address [facility] one Number [place] [address] MEDICAL CENTER * US paracentesis (10/27/2018 3:07 PM CDT) Specimen Narrative Performed At FINAL REPORT [facility] Paracentesis dated 10/27/2018 Procedure: Ultrasound-guided paracentes is. Preprocedure diagnosis: Ascites Postprocedure diagnosis: Ascites Conscious sedation: None. Radiologist: Keith Garcia M.D. Director Construction Services: None Anesthesia: 1% Xylocaine mixed with sod ium bicarbonate local anesthesia. Technique: After obtaining informed con sent, ultrasound-guided paracentesis was performed under usual sterile technique. Using a 5 mohawk drainage catheter, puncture was made in the right lower quadrant abdomen. Approximately 2000 cc of clear yellowish fluid was removed. Patient tolerated the procedur e well without complication. Complication: None Graft/Implant: None Estimated Blood Loss: None Impression: Ultrasound-guided paracente sis. Signed: Keith Garcia MD Report Verified Date/Time: 9 16:58:17 Reading Location: [facility] B1 C013Y CT Body Reading Room Procedure Note Interface, External Ris In - 10/27/2018 5:00 PM CDT FINAL REPORT Paracentesis dated 10/27/2018 Procedure: Ultrasound-guided paracentesis. Preprocedure diagnosis: Ascites Postprocedure diagnosis: Ascites Conscious sedation: None. Radiologist: Keith Garcia M.D. Director Construction Services: None Anesthesia: 1% Xylocaine mixed with sodium bicarbonate local anesthesia. Technique: After obtaining informed consent, ultrasound-guided paracentesis was performed under usual sterile technique. Using a 5 mohawk drainage catheter, puncture was made in the right lower quadrant abdomen. Approximately 2000 cc of clear yellowish fluid was removed. Patient tolerated the procedure well without complication. Complication: None Graft/Implant: None Estimated Blood Loss: None Impression: Ultrasound-guided paracentesis. Signed: Keith Garcia MD Report Verified Date/Time: 10/27/2018 16:58:17 Reading Location: [facility] C013Y CT Body Reading Room Performing Organization Address City/State/Zipcode Ph one Number GE [facility] * Body fluid cell count with differential (10/27/2018 3:00 PM CDT) Appearance Slightly Hazy (A) Clear [facility] Color Shagufta (A) Colorless, Straw [facility] RBCs 309 (H) <=1 /cu mm [facility] Adjusted WBC Count 147 (H) <=5 /cu mm [facility] Lining Cells 54 (H) <=1 /cu mm [facility] % Segs 10 % [facility] % Lymphs 18 % [facility] % Monos 72 % [facility] % Eos 0 % [facility] % Baso 0 % [facility] Container Body Fluid EDTA Tube [facility] Specimen Body Fluid Performing Organization Address City/[facility] Cent[facility]ode Ph one Number [address] [address] MEDICAL CENTER * US abdomen [...] Report Verified Date/Time: 9 13:11:32 Reading Location: [address] Transiti onal Reading Room Procedure Note [...] Report Verified Date/Time: 10/26/2018 13:11:32 Reading Location: [address] Transitional Reading Room Performing Organization Address [facility] Ph one Number GE [facility] * Peripheral Blood Smear - Path Review (10/21/2018 5:01 AM CDT) RBC Morphology Polychromasia [facility] WBC Morphology Toxic Granulation [facility] Pathologist Review Cell counts confirmed. [facility] Pathologist: Samina Arteaga M.D. [facility] (electronic signature) [facility] Specimen Blood Performing Organization Address [facility] Cent[facility]ode Ph one Number [facility] [address] [place], [place] [address] [facility] CENTER * 2D Echo W/Doppler(CW/PW/Color) (10/20/2018 1:30 PM CDT) Ejection Fraction [facility] ECHO HEARTLAB [facility] Specimen Narrative Performed At Transthoracic Echocardiography Report (TTE) [facility] ECH O HEARTLAB Demographics [facility] Patient NameINDRA GALVAN Date of Study10/20/2018 YAN Daniel Gender Male Visit [id number] Race Unknown Room [id number] Number Date of 1980 ReferringMuaurea plummer Age [...] 10/20/2018 YAN CORDERO Gender Male Visit Number [id number] Race Unknown Room Number 743 Number Date of 1980 Referring Minal Taylor Physician Age 37 year(s) 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 * REPORT OF PROCEDURE - ENDOSCOPY URL (10/19/2018 9:17 AM CDT) Narrative Performed At This result has an attachment that is n ot available. * Urea Nitrogen, random urine (10/18/2018 6:43 PM CDT) Urea Nitrogen, Ur 120 mg/dL [facility] Specimen Urine Narrative Performed At Reference Range: No Normals [facility] Performing Organization Address City/State/Zipcode Ph one Number [facility] [address] [place], [place] [address] [facility] * US doppler (10/17/2018 5:12 PM CDT) Specimen Narrative Performed At FINAL REPORT [facility] Ultrasound of the Abdomen and Duplex Do [...] seen with no sonographic evidence of ac bill moore's slough cholecystitis. The spleen measures 14.6 cm, enlarged. [...] Report Verified Date/Time: 9 17:43:28 Reading Location: [facility] [id number] Consult Reading Room Procedure Note Interface, [...] 5. Pancreas obscured from view. Signed: Ainsley Slona MD Report Verified Date/Time: 10/17/2018 17:43:28 Reading Location: [facility] C0W Consult Reading Room Performing Organization Address City/State/Zipcode Ph one Number [facility] * US abdomen complete (10/17/2018 5:12 PM CDT) Specimen Narrative Performed At FINAL REPORT [facility] Ultrasound of the Abdomen and Duplex Do [...] seen with no sonographic evidence of ac bill moore's slough cholecystitis. The spleen measures 14.6 cm, enlarged. [...] Report Verified Date/Time: 9 17:43:28 Reading Location: [facility] [id number] Consult Reading Room Procedure Note Interface, [...] Report Verified Date/Time: 10/17/2018 17:43:28 Reading Location: [facility] B1 C013W Consult Reading Room Performing Organization Address City/State/Zipcode Ph one Number [facility] after 10/17/2018 Insurance Payer Benefit Subscriber ID Type Phone Address Plan / Group BLUE CROSS/BLUE SHIELD BCBS PPO xxxxxxxxxxxx PPO [address] [place] [address] CHOICE [phone] [address] [address] amily (Home) [place] [address] Advance Directives For more information, please contact: [facility] [address] [place] [address] Date Inactivated Comments Code Status [...]
--- OUTSIDE RECORDS SUMMARY | 2019-10-18 10:39 | XMS REPORT | Continuity of Care Document ---
Author Author [facility] t Organization [facility] t Address [address] [place] [address] Phone Unavailable Care Team Providers [facility]chandising Manager Name Role Phone JOSE VOSS Trudi PCP Jose Alejandro EDUCATION AND TRAINING COORDINATOR, Michael Attphys Unavailable KHLOE BOX Attphys Unavailable Anastacio Killian Attphys Unavailable Anaya MURPHY, Kin Radford Attphys Unavailable Carlos A FRYE MPH, Laura Merchant Attphys [phone] Dorothy Boss Attphys Unavailable Elton SMITH, Katie Attphys Unavailable Laura Schwartz Attphys Unavailable Tim MURPHY, Brannon Mccartney Attphys Unavailable Steven EDUCATION AND TRAINING COORDINATOR, Laine Carreon Attphys Unavailable George MURPHY, Emily Attphys Unavailable Mabel MURPHY, Nay Attphys Unavailable Haley FRYE, Sanjana Valencia Attphys Grzegorz FRYE, Danii Shepard Attphys DANII LANTIGUA Attphys Unavailable Sea SMITH, Abby Attphys Unavailable Marissa Mixon Attphys Unavailable Ady MURPHY, Katie Attphys Unavailable Silvano MURPHY, Delores Attphys Unavailable Anthony DIE WELDER, [place] Abel Attphys Kenisha Gordillo Attphys Unavailable Darvin WICK, Charmaine Howe Attphys Lj FRYE, Iman Geronimo Attphys Malou FRYE, Erin Mir Attphys Elsie FRYE, Robina Cummins Attphys [phone] Connie Christensen Attphys Unavailable Eduardo FRYE, [...] Attphys Unavailable Kendal FRYE, Valeriy Campohish Attphys [phone] OZIEL VALDEZ Attphys Unavailable José Miguel FRYE, Oziel Christie Attphys [phone] Reggie FRYE, Yasmin Fermin Attphys Kenisha Rojas Attphys Unavailable VENTURA BREEN Attphys Unavailable Julia FRYE, Ventura Renee Attphys Brandon FRYE, Zenon Kaufman Attphys [phone] Evelina FRYE, Audie Attphys Caden FRYE, Melisa Attphys Hemalatha Alfredo Attphys Unavailable BRANDON, ZENON KAUFMAN Attphys Unavailable Kurt FRYE, Coreen Flanagan Attphys Kin Cavazos Attphys Unavailable Samina Silva CRNA Attphys [phone] Jose FRYE, Vinay Juan Attphys Chaim FRYE, Jazzmine Estrella Attphys [phone] Isak FRYE, Genna Begum Attphys Anton DUQUEICA [...] BLUE CROSS/BLUE SHIELDBCBS PPO POS EPO C [id number] [facility] [id number] [address] [id number] [facility] Blue Cross [facility] Ppo [id number] 2018 00:00:00 [facility] Problems Condition Name Condition Details Condition Category Status Onset Date Resolution Date Last Treatment Date Treating Clinician Comments Source Sepsis Sepsis Disease Active 2019-05-04 00:00:00 [facility] Symptomatic anemia Symptomatic anemia Disease Active 2019-01-17 00:00:0 0 [facility] Tubular adenoma Tubular adenoma Disease Active 2019-01-17 00:00:00 [facility] Rash Rash Disease Active 2019-01-17 00:00:00 [facility] Screening for cancer Screening for cancer Disease Active 00:00:00 [facility] Alcohol use disorder, mild, abuse Alcohol use disorder, mild, ab use Disease Active 2019-01-17 00:00:00 [facility] Pedal edema Pedal edema Disease Active 2019-01-17 00:00:00 [facility] Hepatic encephalopathy Hepatic encephalopathy Disease Active 2019-01-17 00:00:00 [facility] Alcoholic hepatitis Alcoholic hepatitis Disease Active 2019-01-17 00:00 :00 [facility] Alcoholic cirrhosis Alcoholic cirrhosis Disease Active 2018-12-21 00:00 :00 [facility] Sepsis, unspecified organism Sepsis, unspecified organism Disease Active 2018-12-21 00:00:00 [facility] ESRD (end stage renal disease) ESRD (end stage renal disease) Disea se Active 2018-12-21 00:00:00 [facility] Liver failure Liver failure Disease Active 2018-10-16 00:00:00 [facility] Acute blood loss anemia Acute blood loss anemia Disease Active 2018-06-26 00:00:00 [facility] GIB (gastrointestinal bleeding) GIB (gastrointestinal bleeding) Dis ease Active 2018-06-21 00:00:00 [facility] Hemorrhagic shock Hemorrhagic shock Disease Active 2018-06-21 00:00:00 [facility] Hyperbilirubinemia Hyperbilirubinemia Disease Active 2018-06-01 00:00:0 0 [facility] Sinus tachycardia Sinus tachycardia Disease Active 2018-01-28 00:00:00 [facility] Prediabetes Prediabetes Disease Active 2018-01-28 00:00:00 [facility] Jaundice Jaundice Problem Active [facility] Pneumonia Pneumonia Problem Active [facility] Obesity Obesity Disease Active [facility] Fatty liver Fatty liver Disease Active [facility] Dark emesis Dark emesis Disease Active [facility] Hypotension due to hypovolemia Hypotension due to hypovolemia Disease Active [facility] Acute renal failure with tubular necrosis Acute renal failure with tubular necrosis Disease Active [facility] ESRD (end stage renal disease) on dialysis ESRD (end s tage renal disease) on dialysis Disease Active [facility] ESRD on hemodialysis ESRD on hemodialysis Disease Active [facility] History of Past Illness Condition Name Condition Details Condition Category Status Onset Date Resolution Date Last Treatment Date Treating Clinician Comments Source Respiratory center failure Respiratory center failure Disease Resolved 2018-06-01 00:00:00 2018-12-23 00:00:00 2018-12-23 18:37:49 [facility] Acute respiratory failure with hypoxia Acute respiratory ericka lure with hypoxia Disease Resolved 2018-06-01 00:00:00 2018-12-23 00:00:00 2018-12-23 18:37:3 7 [facility] ARDS (adult respiratory distress syndrome) ARDS (adult respiratory distress syndrome) Disease Resolved 2018-06-01 00:00:00 2018-12-23 00:00:00 2 18:37:31 [facility] Acute kidney injury Acute kidney injury Disease Resolved 2018-05 00:00:00 2018-12-23 00:00:00 2018-12-23 18:37:33 [facility] Hyponatremia Hyponatremia Disease Resolved 2018-06-01 00:00:00 2 [facility] 00:00:00 2018-12-23 18:37:52 [facility] Hypertension Hypertension Disease Resolved 2018-12-23 00: 00:00 2018-12-23 18:37:55 [facility] Allergies, Adverse Reactions, Alerts Allergy Name Allergy Type Status Severity Reaction(s) Onset Date Inacti ve Date Treating Clinician Comments Source Prednisone Drug Intolerance Active 2019-05-04 00:00:00 [facility] Ceftriaxone Drug Allergy Active Rash 2019-01-06 00:00:00 [facility] Family History Family Member Diagnosis Comments Start Date Stop Date Source Natural brother No Known Problem [facility] Natural father Hypertension [facility] Natural mother Hypertension [facility] Natural son No Known Problem [facility] Social History Social Habit Start Date Stop Date Quantity Comments Source Sex Assigned At [facility] Alcohol Comment 2019-02-04 00:00:00 2019-02-04 00:00:00 quit in 9 [facility] Alcohol intake 2018-01-25 00:00:00 2018-01-25 00:00:00 Current drinker of alcohol (finding) [facility] Smoking Status Start Date Stop Date Source Never smoker [facility] Medications Ordered Medication Name Filled Medication Name Start Date Stop Da te Current Medication? Ordering Clinician Indication Dosage Frequency Signature (SIG) Comments Components Source Pantoprazole Sodium (Protonix) 40 Mg TABLET. Pantopr azole Sodium (Protonix) 40 Mg TABLET. 2019-09-27 10:11:00 Yes [address] [facility] traZODone (DESYREL) 50 MG tablet 2019-06-17 10:52:35 Yes 50mg QD Take 50 mg by mouth nightly. [facility] furosemide (LASIX) 10 mg/mL solution 2019-05-13 12:01:00 Ye s QD Take by mouth daily. [facility] colchicine (COLCRYS) 0.6 mg tablet 2019-05-11 00:00:00 202 23:59:00 No .6mg QD Take 1 tablet (0.6 mg total) by mouth bere martino for 11 days. [facility] FUROSEMIDE ORAL 2019-05-10 14:52:11 2019-05-10 00:00:00 No 80mg QD Take 80 mg by mouth daily . [facility] pantoprazole (PROTONIX) 40 MG tablet 2019-05-10 00:00:00 Ye s 40mg Q.5D Take 1 tablet (40 mg total) by mouth 2 (two) times daily. [facility] UNKNOWN 2019-02-04 09:37:27 2019-02-04 00:00:00 No QD daily Pt states he takes a medication to suppress his alcohol cravings . [facility] UNKNOWN 2019-02-04 09:37:25 2019-02-04 00:00:00 No naus ea as needed Pt takes dissolving tablet for nausea, unsure of name . [facility] thiamine 100 MG tablet 2019-02-04 00:00:00 Yes Portal hypertension (HCC) 100mg QD Take 1 tablet (100 mg total) by mouth daily. [facility] hydrOXYzine (ATARAX) 25 MG tablet 2019-01-16 00:00:00 2018 23:59:00 No Pruritus 25mg Take 1 tablet (2 5 mg total) by mouth every 6 (six) hours as needed for Itching for up to 30 days. I [facility] traMADol (ULTRAM) 50 mg tablet 2019-01-06 00:00:00 Yes TK 1 T PO Q 8 H PRN P [facility] diphenhydrAMINE-zinc acetate (BENADRYL EXTRA STRENGTH) 2-0.1 % cream 2019-01-06 00:00:00 2020-01-06 23:59:00 No Apply topically 3 (three) times daily as needed for Itching. [facility] thiamine 100 MG tablet 2018-12-27 00:00:00 2019-02-04 00:00:00 N o 100mg QD Take 1 tablet (100 mg total) by mouth daily. [facility] traZODone (DESYREL) 50 MG tablet 2018-12-26 09:59:23 2018-11 00:00:00 No 50mg QD Take 50 mg by mouth nightly. [facility] midodrine (PROAMATINE) 10 MG tablet 2018-12-26 09:59:2 3 2018-12-26 00:00:00 No 10mg Q.[id number] Take 10 mg by mouth 3 (th ree) times daily. [facility] ondansetron (ZOFRAN-ODT) 4 MG disintegrating tablet 2018-12-26 09:59:23 2018-12-26 00:00:00 No 4mg Take 4 mg by mouth every 6 (six) hours as needed for Nausea. [facility] lactulose (CHRONULAC) 20 gram/30 mL solution 2018-12-26 00:00:00 Yes 30g Q.[id number] Take 45 mLs (30 g total) by mouth 3 ( three) times daily. [facility] r midodrine (PROAMATINE) 10 MG tablet 2018-12-26 00:00:00 Yes 10mg Q.[id number] Take 1 tablet (10 mg total) by mouth 3 ( three) times daily. [facility] phytonadione, vitamin K1, (MEPHYTON) 5 mg tablet 2018-12-26 00:00:00 2019-02-04 00:00:00 No 5mg QD Take 1 tablet (5 mg total) by mouth daily. [facility] ciprofloxacin HCl (CIPRO) 500 MG tablet 00:00:00 2018-12-29 23:59:00 No 500mg QD Take 1 tablet (500 mg total) by mouth daily for 3 days. [facility] heparin injection 1,000 units/mL for IV bolus/dialysis lock 2018-11-15 00:00:00 2018-11-15 23:59:00 No 1000U 1-3.6 mLs (1,000-3,600 Units total) by Intra-Catheter route once as needed (hemodialysis acute catheter packing) for up to 1 dose. [facility] traZODone (DESYREL) 100 MG tablet 2018-11-07 09:2018 00:00:00 No 100mg QD Take 100 mg by mouth nightly. [facility] lactulose (CHRONULAC) 20 gram/30 mL solution 201 11-05-11 09::2018-11-07 00:00:00 No 20g Q.[id number] Ta ke 20 g by mouth 3 (three) times daily Titrate to 3 BM's/day . [facility] furosemide (LASIX) 20 MG tablet 2018-11-07 09: 00:00:00 No 40mg QD Take 40 mg by mouth daily. [facility] folic acid (FOLVITE) 1 MG tablet 2018-11-07 00:00:00 2019-10 23:59:00 No 1mg QD Take 1 tablet (1 mg total) by mouth daily. [facility] pantoprazole (PROTONIX) 40 MG tablet 2018-11-07 00:00: 00 2019-05-10 00:00:00 No 40mg QD Take 1 tablet (40 mg total) by mouth [place] [facility] [facility] lactulose (CHRONULAC) 20 gram/30 mL solution 201 11-05-11 00:00:00 2018-12-26 00:00:00 No 30g Q.[id number] Ta ke 45 mLs (30 g total) by mouth 3 (three) times daily. [facility] ipratropium (ATROVENT) 0.02 % nebulizer solution 2018-11-07 00:00:00 2018-12-26 00:00:00 No .5mg Take 2.5 mLs (0.5 mg total) by nebulization every 6 (six) hours as needed. [facility] levoFLOXacin (LEVAQUIN) IVPB 250 mg in dextrose 5% (D5W) 50 mL 2018-11-07 00:00:00 2018-12-26 00:00:00 No 250mg Q24H Inject 50 mLs (250 mg total) intravenously daily. [facility] melatonin 3 mg Tab tablet 2018-11-07 00:00:00 2018-12-26 00:00:0 0 No 6mg Take 2 tablets (6 mg total) by mouth every night as needed. [facility] octreotide (SANDOSTATIN) 100 mcg/mL Soln 2018-10 00:00:00 2018-12-26 00:00:00 No 100ug Q.[id number] In ject 1 mL (100 mcg total) subcutaneously 3 (three) times daily. [facility] phytonadione 0.8 mg/mL Soln ORAL solution 11-07 00:00:00 2018-12-26 00:00:00 No 5mg QD Take 6.25 mLs (5 mg total) by m outh daily. [facility] thiamine (B-1) 100 mg/mL injection 2018-11-07 00:00:00 201 11-05-30 00:00:00 No 100mg QD Inject 1 mL (100 mg total) intravenously daily. [facility] traZODone (DESYREL) 50 MG tablet 2018-11-07 00:00:00 2018-11 23:59:00 No 50mg Take 1 tablet (50 mg total) by mouth every night as needed for up to 30 days. [facility] midodrine (PROAMATINE) 5 MG tablet 2018-11-07 00:00:00 201 11-06-11 23:59:00 No 5mg Q.[id number] Take 1 ta blet (5 mg total) by mouth 3 (three) times daily for 30 days. [facility] guaiFENesin (ROBITUSSIN) 100 mg/5 mL syrup 11-07 00:00:00 2018-11-17 23:59:00 No 200mg Take 10 mLs (2 00 mg total) by mouth every 4 (four) hours as needed for Congestion for up to 10 days. [facility] benzonatate (TESSALON) 100 MG capsule 2018-11-07 00:00 :00 2018-11-14 23:59:00 No 100mg Q.[id number] Take 1 capsule (100 mg total) by mouth 3 (three) times daily for 7 days. [facility] multivitamin (THERAGRAN) tablet 2018-07-10 00:00:00 23:59:00 No 1{tbl} QD Take 1 tablet by mouth daily. [facility] furosemide (LASIX) 10 mg/mL injection 2018-07-10 00:00 :00 2018-11-07 00:00:00 No 20mg Inject 2 mLs (2 0 mg total) intravenously daily as needed (significant edema) Patient with hypotension, on midodrine. Need to watch BPs. [facility] Folic Acid Folic Acid Yes 1 Daily [facility] I [facility] Hydrochlorothiazide Hydrochlorothiazide Yes [address] [facility] Midodrine Hcl Midodrine Hcl Yes [facility] Nifedipine (Nifedipine Er) 30 Mg TAB.ER.24 Nifedipine (Nifedipine Er) 30 Mg TAB.ER.24 Yes [address] [facility] Pantoprazole Sodium (Protonix) 40 Mg TABLET. Pantopr azole Sodium (Protonix) [address] [facility] Trazodone Hcl Trazodone Hcl Yes [address] [facility] Levofloxacin (Levaquin) 500 Mg TABLET Levofloxacin (Levaquin) 50 0 Mg TABLET 2018-05-27 00:00:[address] [facility] Olmesartan Med/Amlodipine/Hctz (Tribenzor 40-5-12.5 Mg Tablet) 1 Each TABLET Olmesartan Med/Amlodipine/Hctz (Tribenzor 40-5-12.5 Mg Tablet) 1 Each TABLET 2018-05-27 00:00:[address] [facility] Pantoprazole Sodium (Protonix) 40 Mg TABLET. Pantopr azole Sodium (Protonix) 40 Mg TABLET. 2018-05-27 00:00:[address] [facility] Vital Signs Vital Name Observation Time Observation Value Comments Source Body Temperature 2019-09-27 17:18:00 99.0 [degF] [facility] BMI (Body Mass Index) 2019-09-27 09:42:00 26.6 kg/m2 [facility] Weight 2019-09-26 13:55:00 196 [lb_av] [facility] Systolic blood pressure 2019-05-13 10:59:00 115 mm[Hg] [facility] Diastolic blood pressure 2019-05-13 10:59:00 69 mm[Hg] [facility] Heart rate 2019-05-13 10:59:00 90 /min [facility] Body temperature 2019-05-13 10:59:00 36.94 Dariel [facility] Respiratory rate 2019-05-13 10:59:00 18 /min [facility] Body height 2019-05-13 10:59:00 180.3 cm [facility] Body weight Measured 2019-05-13 10:59:00 86.229 kg [facility] BMI 2019-05-13 10:59:00 26.51 kg/m2 [facility] Oxygen saturation in Arterial blood by Pulse oximetry 05-12 10:59:00 100 /min [facility] Procedure Date / Time Performed Performing Clinician Afshan e US abdomen complete 2019-09-26 00:00:00 [facility] MR ABDOMEN WITH & WITHOUT IV CONTRAST 2019-05-23 12:08:00 StribErik jansen [facility] BASIC METABOLIC PANEL (7) 2019-05-23 09:03:00 Devyn Lantigua [facility] HEPATIC FUNCTION PANEL 2019-05-23 09:03:00 Devyn Lnatigua [facility] PROTHROMBIN TIME/INR 2019-05-23 09:03:00 Devyn Lantigua [facility] CBC W/PLT COUNT & AUTO DIFFERENTIAL 2019-05-23 09:03:00 Alfred Lantigua [facility] RHYTHM STRIP - SCAN 2019-05-15 16:11:24 Provider, Default Zita manjarrez [facility] MISCELLANEOUS LAB ORDER 2019-05-14 09:30:00 Placido Zimmerman [facility] PROTHROMBIN TIME/INR 2019-05-14 09:30:00 Devyn Lantigua [facility] HEPATIC FUNCTION PANEL 2019-05-14 09:30:00 Devyn Lantigua [facility] BASIC METABOLIC PANEL (7) 2019-05-14 09:30:00 Dveyn Lantigua [facility] BILIRUBIN, DIRECT 2019-05-14 09:30:00 Devyn Lantigua [facility] CBC W/PLT COUNT & AUTO DIFFERENTIAL 2019-05-14 09:30:00 Alfred Lantigua [facility] REPORT OF PROCEDURE - ENDOSCOPY SCAN 2019-05-13 11:03:24 Pro vider, Default Scanning [facility] RHYTHM STRIP - SCAN 2019-05-12 15:11:01 Provider, Default Zita manjarrez [facility] REPORT OF PROCEDURE - ENDOSCOPY SCAN 2019-05-12 15:10:56 Pro vider, Default Scanning [facility] CARDIAC CATH REPORT - SCAN 2019-05-12 15:10:54 Provider, Default Scanning [facility] MAGNESIUM 2019-05-10 05:22:00 Carlos Lyons [facility] PHOSPHORUS 2019-05-10 05:22:00 Carlos Lyons [facility] NM MYOCARDIAL PERFUSION PET/CT (REST & STRESS) 2019-05-09 14:55: 00 Robbie New [facility] TREADMILL TOLERANCE(NON-NUCLEAR TREADMILL) 2019-05-09 14:24: 27 Unknown, Hl7 Doctor [facility] HEMODIALYSIS INPATIENT 2019-05-09 07:47:24 Rosamaria Maldonado [facility] MAGNESIUM 2019-05-09 05:35:00 SerenaCarlos peacock [facility] PHOSPHORUS 2019-05-09 05:35:00 Serena, [facility] COMPREHENSIVE METABOLIC PANEL 2019-05-09 05:35:00 Kate Guido [facility] CBC W/PLT COUNT & AUTO DIFFERENTIAL 2019-05-09 05:35:00 Kate Truong [facility] TRANSFUSION SERVICE REPORT - SCAN 2019-05-08 17:52:07 Provid er, Default Scanning [facility] LIMITED 2D ECHOCARDIOGRAM 2019-05-08 11:40:31 Robbie New [facility], [facility] PROCALCITONIN 2019-05-08 03:02:00 Carlos Lyons [facility] MAGNESIUM 2019-05-08 03:02:00 Carlos Lyons [facility] PHOSPHORUS 2019-05-08 03:02:00 Carlos Lyons [facility] BASIC METABOLIC PANEL (7) 2019-05-08 03:02:00 Idris Murry ph [facility] CBC W/PLT COUNT & AUTO DIFFERENTIAL 2019-05-08 03:02:00 Indra Munguia [facility] (CELLAVISION MANUAL DIFF) 2019-05-08 03:02:00 Idris Murry ph [facility] HEMODIALYSIS INPATIENT 2019-05-08 00:48:36 [place] Rosamaria AntonFredy [facility] PREPARE LEUKO-REDUCED RBC 2019-05-07 23:54:00 Zamzam Correa [facility] PERIPHERAL VASCULAR REPORT - SCAN 2019-05-07 21:12:27 Provid er, Default Scanning [facility] PERICARDIOCENTESIS 2019-05-07 20:33:00 Eduardo [facility] BODY FLUID CULTURE + GRAM STAIN 2019-05-07 19:20:14 [facility] 2019-05-07 19:20:00 [facility] 2D ECHO W/ DOPPLER (CW/PW/COLOR) 2019-05-07 18:32:29 Coreen New [facility] TRANSFUSION SERVICE REPORT - SCAN 2019-05-07 17:52:09 Provid er, Default Scanning [facility] COMPREHENSIVE METABOLIC PANEL 2019-05-07 06:42:00 [place] c [facility] CBC W/PLT COUNT & AUTO DIFFERENTIAL 2019-05-07 06:42:00 Isacc Meadows [facility] (CELLAVISION MANUAL DIFF) 2019-05-07 06:42:00 [place] [facility] PREPARE LEUKO-REDUCED RBC 2019-05-06 23:54:00 Juanpablo Calhoun [facility] TRANSFUSION SERVICE REPORT - SCAN 2019-05-06 18:02:23 Provid er, Default Scanning [facility] CAROTID DOPPLER BILATERAL 2019-05-06 16:05:00 Karen Carranza [facility] REPORT OF PROCEDURE - ENDOSCOPY URL 2019-05-06 13:43:19 Zainab Alves [facility] 2D ECHO W/ DOPPLER (CW/PW/COLOR) 2019-05-06 13:06:03 Coreen New [facility] UPPER ENDOSCOPY 2019-05-06 10:00:00 Zainab Alves [facility] COMPREHENSIVE METABOLIC PANEL 2019-05-06 04:52:00 Angelic Lomeli [facility] MAGNESIUM 2019-05-06 04:52:00 Madeline [facility] CBC W/PLT COUNT & AUTO DIFFERENTIAL 2019-05-06 04:52:00 Kin Lomeli [facility] (CELLAVISION MANUAL DIFF) 2019-05-06 04:52:00 Angelic Lomeli [facility] TRANSFUSE LEUKO-REDUCED RED BLOOD CELLS 2019-05-06 03:24:02 Madeline [facility] CBC W/PLT COUNT & AUTO DIFFERENTIAL 2019-05-05 21:10:00 Madeline [facility] BASIC METABOLIC PANEL (7) 2019-05-05 21:09:00 Madeline [facility] I [facility] MAGNESIUM 2019-05-05 21:09:00 Madeline [facility] TROPONIN I 2019-05-05 21:09:00 Madeline [facility] ECG 12-LEAD 2019-05-05 20:53:39 Unknown, 7 [facility] ECG 12-LEAD 2019-05-05 20:52:05 Unknown, 7 [facility] ECG 12-LEAD 2019-05-05 19:34:00 Unknown, 7 [facility] ECG 12-LEAD 2019-05-05 19:32:27 Unknown, 7 [facility] TRANSFUSION SERVICE REPORT - SCAN 2019-05-05 17:52:36 Provid er, Default Scanning [facility] HEMODIALYSIS INPATIENT 2019-05-05 15:16:18 Rosamaria Maldonado [facility] HEPATITIS B SURFACE ANTIGEN 2019-05-05 15:02:00 Christopher Maldonado Fredy [facility] OCCULT BLOOD, STOOL 2019-05-05 12:07:00 Armani [facility] COMPREHENSIVE METABOLIC PANEL 2019-05-05 09:51:00 Armani [facility] RETICULOCYTE COUNT 2019-05-05 09:51:00 Armani [facility] BILIRUBIN, DIRECT 2019-05-05 09:51:00 Armani [facility] S [facility] FERRITIN 2019-05-05 09:51:00 Armani [facility] IRON, TIBC, % SAT. (WITHOUT FERRITIN) 2019-05-05 09:51:00 Armani [facility] DIRECT [facility] (LUMA)/DIRECT ANTONIA 2019-05-05 09:51:00 Armani [facility] ABORH, MANUAL 2019-05-05 09:51:00 Armani [facility] CBC W/PLT COUNT & AUTO DIFFERENTIAL 2019-05-05 09:51:00 Kin Lomeli [facility] TRANSFUSE LEUKO-REDUCED RED BLOOD CELLS 2019-05-05 08:35:39 Lj [facility] TRANSFUSE LEUKO-REDUCED RED BLOOD CELLS 2019-05-05 01:08:39 Lj [facility] LACTIC ACID, VENOUS 2019-05-05 00:29:00 Lj [facility] ECG 12-LEAD 2019-05-05 00:27:17 Unknown, Hl7 [facility] TYPE AND SCREEN, AUTOMATED 2019-05-04 20:42:00 Juanpablo Calhoun [facility] URINE CULTURE 2019-05-04 19:53:[address] [facility] URINALYSIS W/ REFLEX URINE CULTURE 2019-05-04 19:53:00 Terrence Calhoun [facility] LEGIONELLA URINE ANTIGEN 2019-05-04 19:53:00 Lj [facility] BLOOD CULTURE 2019-05-04 19:29:[address] [facility] MAGNESIUM 2019-05-04 19:29:[address] [facility] PHOSPHORUS 2019-05-04 19:29:[address] [facility] B-TYPE NATRIURETIC FACTOR (BNP) 2019-05-04 19:29:00 Lj [facility] PT/APTT 2019-05-04 19:29:00 Lj, Juanpablo [facility] TROPONIN I 2019-05-04 19:29:00 Lj, [facility] COMPREHENSIVE METABOLIC PANEL 2019-05-04 19:29:00 Lj, Juanpablo Merlos [place] [facility] LACTIC ACID, VENOUS 2019-05-04 19:29:00 Lj, [facility] PROCALCITONIN 2019-05-04 19:29:00 Lj, [facility] CBC W/PLT COUNT & AUTO DIFFERENTIAL 2019-05-04 19:29:00 Lj, Emigdio spangler [facility] RAPID INFLUENZA A&B SCREEN 2019-05-04 19:28:00 Lj, Juanpablo Sha franklin [facility] CRITICAL CARE 2019-05-04 18:47:50 Lj, [facility] XR CHEST 1 VIEW PORTABLE/BEDSIDE 2019-05-04 18:05:00 Lj, Anderson kenisha [facility] BASIC METABOLIC PANEL (7) 2019-04-07 09:34:00 Devyn Lantigua [facility] HEPATIC FUNCTION PANEL 2019-04-07 09:34:00 Devyn Lantigua [facility] PROTHROMBIN TIME/INR 2019-04-07 09:34:00 Devyn Lantigua [facility] CBC W/PLT COUNT & AUTO DIFFERENTIAL 2019-04-07 09:34:00 Alfred Lantigua [facility] BASIC METABOLIC PANEL (7) 2019-03-14 10:32:00 Devyn Lantigua [facility] HEPATIC FUNCTION PANEL 2019-03-14 10:32:00 Devyn Lantigua [facility] PROTHROMBIN TIME/INR 2019-03-14 10:32:00 Devyn Lantigua [facility] CBC W/PLT COUNT & AUTO DIFFERENTIAL 2019-03-14 10:32:00 Alfred Lantigua [facility] BILIRUBIN, DIRECT 2019-03-04 10:00:00 Devyn Lantigua [facility] COMPREHENSIVE METABOLIC PANEL 2019-03-04 10:00:00 Devyn Lantigua [facility] CBC W/PLT COUNT & AUTO DIFFERENTIAL 2019-03-04 10:00:00 Alfred Lantigua [facility] PROTHROMBIN TIME/INR 2019-03-04 09:55:00 Devyn Lantigua [facility] BILIRUBIN, DIRECT 2019-02-03 10:13:00 Perri Fenton [facility] COMPREHENSIVE METABOLIC PANEL 2019-02-03 10:13:00 Perri Fenton [facility] PROTHROMBIN TIME/INR 2019-02-03 10:12:00 Perri Fenton [facility] CBC W/PLT COUNT & AUTO DIFFERENTIAL 2019-02-03 10:12:00 Eliceo Perribeatriz Butterfield [facility] US PELVIS WITH DOPPLER 2019-02-03 09:35:00 Rosamaria Maldonado [facility] RHYTHM STRIP - SCAN 2019-01-21 11:42:13 Provider, Default [facility] RHYTHM STRIP - SCAN 2019-01-20 16:02:13 Provider, Default [facility] RHYTHM STRIP - SCAN 2019-01-20 16:02:12 Provider, Default [facility] TRANSFUSION SERVICE REPORT - SCAN 2019-01-19 18:00:57 Provid er, Default Scanning [facility] PREPARE LEUKO-REDUCED RBC 2019-01-18 23:55:00 Perri Fenton [facility] TRANSFUSION SERVICE REPORT - SCAN 2019-01-18 18:03:07 Provid er, Default Scanning [facility] FERRITIN 2019-01-18 17:47:00 Leonidas Elaine [facility] IRON, TIBC, % SAT. (WITHOUT FERRITIN) 2019-01-18 17:47:00 Leonidas Gutierrez [facility] LACTATE DEHYDROGENASE (LDH) 2019-01-18 17:47:00 Leonidas Elaine [facility] HAPTOGLOBIN 2019-01-18 17:47:00 Chele Leonidas [facility] VITAMIN B12 AND FOLATE 2019-01-18 17:47:00 Leonidas Elaine [facility] ULTRAFILTRATION HD CRRT 2019-01-18 15:13:25 Garcia [facility] HEMOGLOBIN AND HEMATOCRIT 2019-01-18 11:17:00 Ye Pool [facility] CBC (HEMOGRAM ONLY) 2019-01-18 02:51:00 Ye Pool Benji [facility] TRANSFUSE LEUKO-REDUCED RED BLOOD CELLS 2019-01-17 23:33:32 Ye Pool Benji [facility] TRANSFUSE LEUKO-REDUCED RED BLOOD CELLS 2019-01-17 22:39:14 Ye Pool Benji [facility] HEMODIALYSIS INPATIENT 2019-01-17 21:29:31 [facility] TYPE AND SCREEN, AUTOMATED 2019-01-17 15:35:00 Perri Fenton [facility] HLA TYPING CI 2019-01-16 15:56:00 [facility] HLA TYPING CII 2019-01-16 15:56:00 Rosamaria Maldonado [facility] FLOW PRA CLASS I WITH REFLEX TO ANTIBODY SPECIFICITY 2018-12 15:56:00 Rosamaria Maldonado [facility] FLOW PRA CLASS II WITH REFLEX TO ANTIBODY SPECIFICITY 2018-02 15:56:00 Rosamaria Maldonado [facility] BASIC METABOLIC PANEL (7) 2019-01-16 15:56:00 Carley Boston [facility] HEPATIC FUNCTION PANEL 2019-01-16 15:56:00 Carley Boston [facility] PROTHROMBIN TIME/INR 2019-01-16 15:56:00 Carley Boston [facility] ALPHA FETOPROTEIN (AFP), TUMOR MARKER 2019-01-16 15:56:00 Carley Boston [facility] AB SPECIFICITY CLASS I 2019-01-16 15:56:00 Rosamaria Maldonado [facility] CBC W/PLT COUNT & AUTO DIFFERENTIAL 2019-01-16 15:56:00 Frederick Boston [facility] RHYTHM STRIP - SCAN 2019-01-08 09:10:11 Provider, Default Scanni loki [facility] TRANSFUSION SERVICE REPORT - SCAN 2019-01-06 17:50:45 Provid er, Default Scanning [facility] MISCELLANEOUS LAB ORDER 2019-01-06 06:01:00 Erik De Leon [facility] CBC (HEMOGRAM ONLY) 2019-01-06 06:01:00 [facility] BASIC METABOLIC PANEL (7) 2019-01-06 06:01:00 Jeny Paredes V. [facility] MAGNESIUM 2019-01-06 06:01:00 [facility] PROTHROMBIN TIME/INR 2019-01-06 06:01:00 [facility] HEPATIC FUNCTION PANEL 2019-01-06 06:01:00 [facility] PREPARE LEUKO-REDUCED RBC 2019-01-05 23:54:00 Vimal Breen [facility] TRANSFUSION SERVICE REPORT - SCAN 2019-01-05 17:50:34 Provid er, Default Scanning [facility] CBC (HEMOGRAM ONLY) 2019-01-05 04:30:00 Jeny Paredes V. [facility] BASIC METABOLIC PANEL (7) 2019-01-05 04:30:00 Jeny Paredes V. [facility] MAGNESIUM 2019-01-05 04:30:00 Jeny Paredes V. [facility] HEPATIC FUNCTION PANEL 2019-01-05 04:30:00 [place] Yasmin [facility] PROTHROMBIN TIME/INR 2019-01-05 04:30:00 Jeny Paredes V. [facility] PREPARE LEUKO-REDUCED RBC 2019-01-04 23:54:00 Pratik Valdez [facility] TRANSFUSION SERVICE REPORT - SCAN 2019-01-04 17:53:27 Provid er, Default Scanning [facility] DRUG SCREEN, URINE, COMPREHENSIVE 2019-01-04 17:39:00 Laine Roper [facility] DRUG SCREEN, URINE, TRANSPLANT 2019-01-04 17:39:00 JacquelinKai bauer [facility] TRANSFUSE LEUKO-REDUCED RED BLOOD CELLS 2019-01-04 14:09:28 Vimal Breen [facility] ETHANOL 2019-01-04 09:42:00 Jacquelin [facility] BASIC METABOLIC PANEL (7) 2019-01-04 04:07:00 Vimal Breen [facility] HEPATIC FUNCTION PANEL 2019-01-04 04:07:00 Vimal Breen ose [facility] CBC W/PLT COUNT & AUTO DIFFERENTIAL 2019-01-04 04:07:00 Hatf ieVimal quiroz [facility] TRANSFUSE LEUKO-REDUCED RED BLOOD CELLS 2019-01-04 01:55:28 Pratik Valdez [facility] TYPE AND SCREEN, AUTOMATED 2019-01-03 21:56:00 Pratik Valdez [facility] BASIC METABOLIC PANEL (7) 2019-01-03 21:54:00 Pratik Valdez [facility] HEPATIC FUNCTION PANEL 2019-01-03 21:54:00 Pratik Valdez [facility] PT/APTT 2019-01-03 21:54:00 Pratik Valdez [facility] CBC W/PLT COUNT & AUTO DIFFERENTIAL 2019-01-03 21:54:00 Kin Valdez [facility] REPORT OF PROCEDURE - ENDOSCOPY SCAN 2018-12-31 12:52:49 Pro vider, Default Scanning [facility] TRANSFUSION SERVICE REPORT - SCAN 2018-12-27 18:02:58 Provid er, Default Scanning [facility] RHYTHM STRIP - SCAN 2018-12-27 16:04:17 Provider, Default Scanni [facility] PREPARE LEUKO-REDUCED RBC 2018-12-26 23:54:00 Audie Hoyt CH, I [facility] TRANSFUSION SERVICE REPORT - SCAN 2018-12-26 18:02:50 Provid er, Default Scanning [facility] VANCOMYCIN LEVEL, RANDOM 2018-12-26 03:56:00 Maurice Stern [facility] BASIC METABOLIC PANEL (7) 2018-12-26 03:56:00 [facility] MAGNESIUM 2018-12-26 03:56:00 [facility] PHOSPHORUS 2018-12-26 03:56:00 [facility] HAPTOGLOBIN 2018-12-26 03:56:00 Audie Hoyt [facility] HEPATIC FUNCTION PANEL 2018-12-26 03:56:00 Jacquelin Kai [facility] CBC W/PLT COUNT & AUTO DIFFERENTIAL 2018-12-26 03:56:00 Sharad shook [facility] PERIPHERAL VASCULAR REPORT - SCAN 2018-12-25 21:23:01 Provid er, Default Scanning [facility] TRANSFUSE LEUKO-REDUCED RED BLOOD CELLS 2018-12-25 11:12:26 Audie Huerta [facility] TYPE AND SCREEN, AUTOMATED 2018-12-25 08:51:00 Audie Hoyt [facility] BLOOD CULTURE 2018-12-25 08:25:00 Sydney Vasquez [facility] BASIC METABOLIC PANEL (7) 2018-12-25 03:46:00 [facility] MAG[facility]UM 2018-12-25 03:46:00 [facility] PHOSPHORUS 2018-12-25 03:46:00 [facility] HEPATIC FUNCTION PANEL 2018-12-25 03:46:00 Placido Zimmerman [facility] PROTHROMBIN TIME/INR 2018-12-25 03:46:00 Placido Zimmerman [facility] LACTATE DEHYDROGENASE (LDH) 2018-12-25 03:46:00 Kai Roper [facility] CBC W/PLT COUNT & AUTO DIFFERENTIAL 2018-12-25 03:46:00 Ciccarel bouchra [facility] VENOUS DOPPLER LEGS BILATERAL 2018-12-24 18:55:00 Audie Hoyt [facility] TRANSFUSION SERVICE REPORT - SCAN 2018-12-24 18:02:36 Provid er, Default Scanning [facility] BASIC METABOLIC PANEL (7) 2018-12-24 03:18:00 [facility] MAGNESIUM 2018-12-24 03:18:00 [facility] PHOSPHORUS 2018-12-24 03:18:00 [facility] CBC W/PLT COUNT & AUTO DIFFERENTIAL 2018-12-24 03:18:00 Ciccarel bouchra [facility] PREPARE LEUKO-REDUCED RBC 2018-12-23 23:54:00 Omero Moura [facility] HEMODIALYSIS INPATIENT 2018-12-23 23:25:30 Adri Soler [facility] CBC (HEMOGRAM ONLY) 2018-12-23 20:04:00 Maurice Stern [facility] TRANSFUSION SERVICE REPORT - SCAN 2018-12-23 18:01:02 Provid er, Default Scanning [facility] BASIC METABOLIC PANEL (7) 2018-12-23 04:01:00 [facility] MAGNESIUM 2018-12-23 04:01:00 [facility] PHOSPHORUS 2018-12-23 04:01:00 [facility] VANCOMYCIN LEVEL, RANDOM 2018-12-23 04:01:00 Shmuel Sosa [facility] HEPATITIS B SURFACE ANTIGEN 2018-12-23 04:01:00 RyderAdri Robi ash [facility] CBC W/PLT COUNT & AUTO DIFFERENTIAL 2018-12-23 04:01:00 Ciccarel bouchra [facility] PREPARE LEUKO-REDUCED RBC 2018-12-22 23:54:00 Víctor Breen [facility] CT LOWER EXTREMITY WITHOUT IV CONTRAST RIGHT 2018-12-22 21:0 4:00 Omero Moura [facility] TRANSFUSION SERVICE REPORT - SCAN 2018-12-22 18:01:22 Provid er, Default Scanning [facility] VANCOMYCIN LEVEL, TROUGH 2018-12-22 16:26:00 Shmuel Sosa [facility] CBC (HEMOGRAM ONLY) 2018-12-22 16:26:00 Christy [facility] TRANSFUSE LEUKO-REDUCED RED BLOOD CELLS 2018-12-22 11:21:40 Omero Hernandes [facility] XR CHEST 1 VIEW PORTABLE/BEDSIDE 2018-12-22 05:29:00 [facility]IC [facility]ABOLIC PANEL (7) 2018-12-22 03:56:[facility] MAGNESIUM 2018-12-22 03:56:00 [facility] PHOSPHORUS 2018-12-22 03:56:00 [facility] LACTIC ACID, VENOUS 2018-12-22 03:56:00 [facility] CBC W/PLT COUNT & AUTO DIFFERENTIAL 2018-12-22 03:56:00 Sharad shook [facility] FIBRINOGEN 2018-12-22 03:55:00 Shmuel Sosa win[facility]red [facility] HEMOGLOBIN AND HEMATOCRIT 2018-12-21 08:29:00 [facility] TRANSFUSE LEUKO-REDUCED RED BLOOD CELLS 2018-12-21 07:30:55 Víctor Breen [facility] POCT-LACTIC ACID, VENOUS 2018-12-21 04:01:00 JuliaVíctor mccoy Ma [facility] BLOOD CULTURE 2018-12-21 03:04:00 Julia Víctor [facility] AMMONIA 2018-12-21 02:48:00 [place] [facility] PROCALCITONIN 2018-12-21 02:48:00 [place] [facility] POCT-LACTIC ACID, VENOUS 2018-12-21 02:01:00 Víctor Breen Ma [facility] BLOOD CULTURE 2018-12-21 01:54:00 [place] [facility] COMPREHENSIVE METABOLIC PANEL 2018-12-21 01:53:00 [place] [facility] TROPONIN I 2018-12-21 01:53:[address] [facility] PT/APTT 2018-12-21 01:53:00 [place] [facility] MAGNESIUM 2018-12-21 01:53:[address] [place] [facility] TYPE AND SCREEN, AUTOMATED 2018-12-21 01:53:[address] [facility] CBC W/PLT COUNT & AUTO DIFFERENTIAL 2018-12-21 01:53:00 Cobre [facility] XR CHEST 1 VIEW PORTABLE/BEDSIDE 2018-12-21 01:39:00 [place], L [facility] XR KNEE RIGHT COMPLETE (4 VIEWS) 2018-12-21 01:39:00 [place]askaKenisha [facility] ECG 12-LEAD 2018-12-21 01:18:37 Unknown, Hl7 Doctor [facility] CRITICAL CARE 2018-12-21 01:10:14 [place] [facility] RHYTHM STRIP - SCAN 2018-11-19 09:00:16 Provider, Default Scanni [facility] TRANSFUSION SERVICE REPORT - SCAN 2018-11-15 17:52:49 Provid er, Default Scanning [facility] CBC W/PLT COUNT & AUTO DIFFERENTIAL 2018-11-15 11:16:00 Panchito Hicks [facility] (MANUAL DIFFERENTIAL) 2018-11-15 11:16:00 Panchito Hicks [facility] HEPATIC FUNCTION PANEL 2018-11-15 04:40:00 Maru Pearson [facility] PROTHROMBIN TIME/INR 2018-11-15 04:40:00 Dariela Pearson [facility] BASIC METABOLIC PANEL (7) 2018-11-15 04:40:00 Al Stephens [facility] PHOSPHORUS 2018-11-15 04:40:00 Karen Dorantes [facility] CBC W/PLT COUNT & AUTO DIFFERENTIAL 2018-11-15 04:40:00 [facility] PREPARE LEUKO-REDUCED RBC 2018-11-14 23:54:00 Panchito Hicks [facility] TRANSFUSION SERVICE REPORT - SCAN 2018-11-14 18:03:46 Provid er, Default Scanning [facility] IR TUNNELED DIALYSIS CATHETER 2018-11-14 12:38:00 Marlys Dorantes [facility] HEPATIC FUNCTION PANEL 2018-11-14 05:10:00 Maru Pearson [facility] PROTHROMBIN TIME/INR 2018-11-14 05:10:00 Dariela Pearson [facility] BASIC METABOLIC PANEL (7) 2018-11-14 05:10:00 Al Stephens CH [facility] CBC W/PLT COUNT & AUTO DIFFERENTIAL 2018-11-14 05:10:00 David Okeefe [facility] TRANSFUSE LEUKO-REDUCED RED BLOOD CELLS 2018-11-13 12:08:04 Panchito Arenas [facility] TYPE AND SCREEN, AUTOMATED 2018-11-13 08:34:00 Panchito Hicks [facility] HEMOGLOBIN AND HEMATOCRIT 2018-11-13 07:51:00 Neason, Panchito Le [facility] HEPATIC FUNCTION PANEL 2018-11-13 05:25:00 Maru Pearson [facility] PROTHROMBIN TIME/INR 2018-11-13 05:25:00 Dariela Pearson [facility] BASIC METABOLIC PANEL (7) 2018-11-13 05:25:00 Al Stephens CH [facility] PHOSPHORUS 2018-11-13 05:25:00 Karen Dorantes [facility] CBC W/PLT COUNT & AUTO DIFFERENTIAL 2018-11-13 05:25:00 SaryDavidsa Hyunna [facility] XR CHEST 2 VIEWS 2018-11-12 21:38:00 Afua Nguyen [facility] HEPATIC FUNCTION PANEL 2018-11-12 03:36:00 Maru Pearsonbillie [facility] PROTHROMBIN TIME/INR 2018-11-12 03:36:00 Dariela Pearson [facility] BASIC METABOLIC PANEL (7) 2018-11-12 03:36:00 Al Stephens [facility] CBC W/PLT COUNT & AUTO DIFFERENTIAL 2018-11-12 03:36:00 SaryDavid gracia yssa Hyunna [facility] PROTEIN, RANDOM URINE 2018-11-12 01:55:00 Karen Dorantes [facility] CREATININE, RANDOM URINE 2018-11-12 01:55:00 Karen Dorantes [facility] HEPATIC FUNCTION PANEL 2018-11-11 03:46:00 Maru Pearson [facility] PROTHROMBIN TIME/INR 2018-11-11 03:46:00 Dariela Pearson sofi [facility] BASIC METABOLIC PANEL (7) 2018-11-11 03:46:00 Al Stephens [facility] CBC W/PLT COUNT & AUTO DIFFERENTIAL 2018-11-11 03:46:00 Sary, David yssa Hyunna [facility] (CELLAVISION MANUAL DIFF) 2018-11-11 03:46:00 Yenifer Okeefe [facility] TRANSFUSION SERVICE REPORT - SCAN 2018-11-10 18:01:07 Provid er, Default Scanning [facility] REPORT OF PROCEDURE - ENDOSCOPY URL 2018-11-10 14:04:49 Alfred Lantigua [facility] TISSUE EXAM 2018-11-10 13:25:00 Devyn Lantigua [facility] COLONOSCOPY,BIOPSY 2018-11-10 13:00:00 Devyn Lantigua [facility] HEPATIC FUNCTION PANEL 2018-11-10 04:30:00 Maru Pearson [facility] PROTHROMBIN TIME/INR 2018-11-10 04:30:00 Dariela Pearson [facility] BASIC METABOLIC PANEL (7) 2018-11-10 04:30:00 Al Stephens [facility] CBC W/PLT COUNT & AUTO DIFFERENTIAL 2018-11-10 04:30:00 David Okeefe Augustsurinderrobi [facility] PREPARE LEUKO-REDUCED RBC 2018-11-09 23:54:00 Jeny Paredes V. [facility] URINALYSIS W/ REFLEX URINE CULTURE 2018-11-09 23:07:00 Maryellen Balderrama [facility] BLOOD CULTURE 2018-11-09 18:26:00 Maryellen Pearson [facility] TRANSFUSION SERVICE REPORT - SCAN 2018-11-09 18:02:25 Provid er, Default Scanning [facility] HEMODIALYSIS INPATIENT 2018-11-09 16:56:01 Matty Edmonds [facility] HEMODIALYSIS INPATIENT 2018-11-09 15:25:00 Karen Dorantes [facility] HEPATIC FUNCTION PANEL 2018-11-09 03:43:00 Maru Pearson [facility] PROTHROMBIN TIME/INR 2018-11-09 03:43:00 Dariela Pearson [facility] BASIC METABOLIC PANEL (7) 2018-11-09 03:43:00 Al Stephens [facility] PHOSPHORUS 2018-11-09 03:43:00 Karen Dorantes [facility] CBC W/PLT COUNT & AUTO DIFFERENTIAL 2018-11-09 03:43:00 David Okeefe [facility] TRANSFUSE LEUKO-REDUCED RED BLOOD CELLS 2018-11-08 18:16:10 [facility] TRANSFUSE LEUKO-REDUCED RED BLOOD CELLS 2018-11-08 15:03:23 [facility]IS[facility] ORDER 2018-11-08 14:39:00 Devyn Lantigua [facility] TYPE AND SCREEN, AUTOMATED 2018-11-08 09:26:00 Rj [place] Yasmin [facility] HEPATIC FUNCTION PANEL 2018-11-08 04:21:00 Maru Pearson [facility] BASIC METABOLIC PANEL (7) 2018-11-08 04:21:00 Al Stephens [facility] MAGNESIUM 2018-11-08 04:21:00 [facility] PHOSPHORUS 2018-11-08 04:21:00 Kendal [facility] YARI ANTIGEN WITH REFLEX TO TITER 2018-11-08 04:20:00 Devyn Lantigua [facility] PROTHROMBIN TIME/INR 2018-11-08 04:20:00 Dariela Pearson sofi [facility] YARI ANTIGEN TITER 2018-11-08 04:20:00 Devyn Lantigua [facility] CBC W/PLT COUNT & AUTO DIFFERENTIAL 2018-11-08 04:20:00 David Okeefe aidee [facility] CT CHEST WITH HIGH RESOLUTION/ILD 2018-11-08 00:16:00 Lizz Lantigua [facility] MR ABDOMEN WITH & WITHOUT IV CONTRAST 2018-11-07 18:45:00 Devyn Lantigua [facility] HEPATIC FUNCTION PANEL 2018-11-07 05:24:00 Maru [facility] PROTHROMBIN TIME/INR 2018-11-07 05:24:00 Dariela Pearson sofi [facility] BASIC METABOLIC PANEL (7) 2018-11-07 05:24:00 Kat Al [facility] CBC W/PLT COUNT & AUTO DIFFERENTIAL 2018-11-07 05:24:00 SaryDavid gracia [facility] (CELLAVISION MANUAL DIFF) 2018-11-07 05:24:00 Yenifer Okeefe a [facility] HEPATIC FUNCTION PANEL 2018-11-06 03:32:00 [facility]u [facility] PROTHROMBIN TIME/INR 2018-11-06 03:32:00 Dariela Pearson [facility] BASIC METABOLIC PANEL (7) 2018-11-06 03:32:00 Kat Al [facility] CBC W/PLT COUNT & AUTO DIFFERENTIAL 2018-11-06 03:32:00 SaryDavid graciasa Hyaidee [facility] (CELLAVISION MANUAL DIFF) 2018-11-06 03:32:00 Yenifer Okeefe [facility] URINE CULTURE 2018-11-05 20:47:00 Jeny Paredes V. [facility] URINALYSIS W/ MICROSCOPIC 2018-11-05 20:47:00 Jeny Paredes V. [facility] XR CHEST 1 VIEW PORTABLE/BEDSIDE 2018-11-05 20:02:00 Mila Hicks [facility] HEPATITIS B SURFACE ANTIGEN 2018-11-05 15:32:00 Kendal [facility] HEPATITIS B SURFACE ANTIBODY 2018-11-05 15:32:00 [facility] B CORE ANTIBODY, TOTAL 2018-11-05 15:32:00 Kendal [facility] IR NON-TUNNELED DIALYSIS CATHETER INSERTION 2018-11-05 12:10 :00 Kendal [facility] PT/APTT 2018-11-05 05:07:00 Kendal [facility] HEPATIC FUNCTION PANEL 2018-11-05 05:07:00 Maru Pearson [facility] PROTHROMBIN TIME/INR 2018-11-05 05:07:00 Dariela Pearson sofi [facility] BASIC METABOLIC PANEL (7) 2018-11-05 05:07:00 Al Stephens CH [facility] MAGNESIUM 2018-11-05 05:07:00 Kendal, [facility] PHOSPHORUS 2018-11-05 05:07:00 Kendal [facility] CBC W/PLT COUNT & AUTO DIFFERENTIAL 2018-11-05 05:07:00 David Okeefe [facility] (CELLAVISION MANUAL DIFF) 2018-11-05 05:07:00 Yenifer Okeefe a [facility] BLOOD CULTURE 2018-11-04 19:53:00 [facility] URINALYSIS W/ REFLEX URINE CULTURE 2018-11-04 19:52:00 Jacquelin [facility] AMMONIA 2018-11-04 12:42:00 Jeny Paredes V. [facility] HEPATIC FUNCTION PANEL 2018-11-04 03:47:00 Maru Pearson [facility] PROTHROMBIN TIME/INR 2018-11-04 03:47:00 Dariela Pearson [facility] BASIC METABOLIC PANEL (7) 2018-11-04 03:47:00 Al Stephens CH [facility] MAGNESIUM 2018-11-04 03:47:00 Jeny Paredes V. [facility] CBC W/PLT COUNT & AUTO DIFFERENTIAL 2018-11-04 03:46:00 Sary David holt Augustaidee [facility] (CELLAVISION MANUAL DIFF) 2018-11-04 03:46:00 Sary Yeniferjonathon Kochsurinder robi [facility] HEPATIC FUNCTION PANEL 2018-11-03 04:00:00 Maru Pearson [facility] PROTHROMBIN TIME/INR 2018-11-03 04:00:00 Dariela Pearson [facility] BASIC METABOLIC PANEL (7) 2018-11-03 04:00:00 Kat Al [facility] CBC W/PLT COUNT & AUTO DIFFERENTIAL 2018-11-03 04:00:00 SaryDavid gracia aidee [facility] HEPATIC FUNCTION PANEL 2018-11-02 05:22:00 Maru Pearson [facility] PROTHROMBIN TIME/INR 2018-11-02 05:22:00 Dariela Pearson [facility] BASIC METABOLIC PANEL (7) 2018-11-02 05:22:00 Kat Al [facility] CBC W/PLT COUNT & AUTO DIFFERENTIAL 2018-11-02 05:22:00 David Okeefe Augustaidee [facility] HEPATIC FUNCTION PANEL 2018-11-01 05:24:00 Maru Pearson [facility] PROTHROMBIN TIME/INR 2018-11-01 05:24:00 Dariela Pearson [facility] BASIC METABOLIC PANEL (7) 2018-11-01 05:24:00 Al Stephens [facility] CBC W/PLT COUNT & AUTO DIFFERENTIAL 2018-11-01 05:24:00 SaryDavid gracia Augustaidee [facility] HEPATIC FUNCTION PANEL 2018-10-31 04:19:00 Maru Pearson [facility] PROTHROMBIN TIME/INR 2018-10-31 04:19:00 Dariela Pearson [facility] BASIC METABOLIC PANEL (7) 2018-10-31 04:19:00 Dimitri [facility] CBC W/PLT COUNT & AUTO DIFFERENTIAL 2018-10-31 04:19:00 David Okeefesa Hyunna [facility] SODIUM, RANDOM URINE 2018-10-30 20:42:00 Karen Dorantes [facility] HEPATIC FUNCTION PANEL 2018-10-30 03:27:00 Maru Pearson [facility] PROTHROMBIN TIME/INR 2018-10-30 03:27:00 Dariela Pearson sofi [facility] BASIC METABOLIC PANEL (7) 2018-10-30 03:27:00 Kat [facility] CBC W/PLT COUNT & AUTO DIFFERENTIAL 2018-10-30 03:27:00 SaryDavid gracia Hyunna [facility] HEPATIC FUNCTION PANEL 2018-10-29 04:12:00 Maru Pearson [facility] PROTHROMBIN TIME/INR 2018-10-29 04:12:00 Dariela Pearson sofi [facility] BASIC METABOLIC PANEL (7) 2018-10-29 04:12:00 Laney Pearson [facility] CBC W/PLT COUNT & AUTO DIFFERENTIAL 2018-10-29 04:12:00 David Okeefe Hysurindera [facility] (CELLAVISION MANUAL DIFF) 2018-10-29 04:12:00 David Okeefeyssa Kochunn a [facility] HEPATIC FUNCTION PANEL 2018-10-28 03:26:00 Maru Pearsonbillie [facility] PROTHROMBIN TIME/INR 2018-10-28 03:26:00 Dariela Pearson sofi [facility] BASIC METABOLIC PANEL (7) 2018-10-28 03:26:00 Laney Pearson [facility] CBC W/PLT COUNT & AUTO DIFFERENTIAL 2018-10-28 03:26:00 David Okeefe [facility] US PARACENTESIS 2018-10-27 15:07:00 Bruce [facility] BODY FLUID CELL COUNT WITH DIFFERENTIAL 2018-10-27 15:00:00 Juanpablo davison [facility] BODY FLUID CULTURE + GRAM STAIN 2018-10-27 15:00:00 Ara Barrera [facility] BLOOD CULTURE 2018-10-27 13:19:00 Bruce [facility] LACTIC ACID, VENOUS 2018-10-27 13:13:00 Panchito Hicks [facility] BLOOD CULTURE 2018-10-27 13:12:00 Bruce [facility] HEPATIC FUNCTION PANEL 2018-10-27 03:57:00 [facility]/INR 2018-10-27 03:57:00 Dariela Pearson [facility] BASIC METABOLIC PANEL (7) 2018-10-27 03:57:00 Laney Pearson [facility] CBC W/PLT COUNT & AUTO DIFFERENTIAL 2018-10-27 03:57:00 David Okeefe [facility] US ABDOMEN LIMITED 2018-10-26 04:21:00 Mati Pearson [facility] HEPATIC FUNCTION PANEL 2018-10-26 03:50:00 Maru Pearson [facility] PROTHROMBIN TIME/INR 2018-10-26 03:50:00 Dariela Pearson [facility] BASIC METABOLIC PANEL (7) 2018-10-26 03:50:00 [facility] & AUTO DIFFERENTIAL 2018-10-26 03:50:00 Sary, Al yssa [facility] HEPATIC FUNCTION PANEL 2018-10-25 04:01:00 Maru Pearsonbillie [facility] PROTHROMBIN TIME/INR 2018-10-25 04:01:00 Dariela Pearson sofi [facility] BASIC METABOLIC PANEL (7) 2018-10-25 04:01:00 [facility] & AUTO DIFFERENTIAL 2018-10-25 04:01:00 David Okeefe [facility] BASIC METABOLIC PANEL (7) 2018-10-24 04:36:00 [facility] 2018-10-24 04:36:00 [facility] PROT[facility]/INR 2018-10-24 04:36:00 Dariela Pearson [facility] MAGNESIUM 2018-10-24 04:36:00 NePanchito baumann [facility] PHOSPHORUS 2018-10-24 04:36:00 Neibis [facility] CBC W/PLT COUNT & AUTO DIFFERENTIAL 2018-10-24 04:36:00 David Okeefe [facility] MISCELLANEOUS LAB ORDER 2018-10-23 18:25:00 Junaid Pearson [facility] HEPATIC FUNCTION PANEL 2018-10-23 03:54:00 Maru Pearson [facility] PROTHROMBIN TIME/INR 2018-10-23 03:54:00 Dariela Pearson [facility] MAGNESIUM 2018-10-23 03:54:00 NePanchito baumann [facility] PHOSPHORUS 2018-10-23 03:54:00 Neibis [facility] Coreen [facility] BASIC METABOLIC PANEL (7) 2018-10-23 03:54:00 Al Stephens [facility] CBC W/PLT COUNT & AUTO DIFFERENTIAL 2018-10-23 03:54:00 David Okeefe [facility] URINALYSIS W/ REFLEX URINE CULTURE 2018-10-22 16:48:00 Maryellen Balderrama [facility] BLOOD CULTURE 2018-10-22 15:01:00 Maryellen Pearson [facility] HEPATIC FUNCTION PANEL 2018-10-22 04:20:00 Maru Pearson [facility] PROTHROMBIN TIME/INR 2018-10-22 04:20:00 Dariela Pearson [facility] BASIC METABOLIC PANEL (7) 2018-10-22 04:20:00 Kat Al [facility] CBC W/PLT COUNT & AUTO DIFFERENTIAL 2018-10-22 04:20:00 David Okeefe [facility] (CELLAVISION MANUAL DIFF) 2018-10-22 04:20:00 Yenifer Okeefe [facility] HEPATIC FUNCTION PANEL 2018-10-21 05:01:00 Maru Pearsonbillie [facility] PROTHROMBIN TIME/INR 2018-10-21 05:01:00 Dariela Pearson [facility] RETICULOCYTE COUNT 2018-10-21 05:01:00 Mati Pearson [facility] HAPTOGLOBIN 2018-10-21 05:01:00 Maryellen Pearson [facility] PERIPHERAL BLOOD SMEAR - PATHOLOGIST REVIEW 2018-10-21 05:01 :00 Maryellen Pearson [facility] VITAMIN B12 AND FOLATE 2018-10-21 05:01:00 Yenifer Okeefe [facility] BASIC METABOLIC PANEL (7) 2018-10-21 05:01:00 Kat Al [facility] CBC W/PLT COUNT & AUTO DIFFERENTIAL 2018-10-21 05:01:00 Sary, Al yssa [facility] (CELLAVISION MANUAL DIFF) 2018-10-21 05:01:00 Yenifer Okeefe [facility] 2D ECHO W/ DOPPLER (CW/PW/COLOR) 2018-10-20 13:30:32 Kendrick Okeefe [facility] HEPATIC FUNCTION PANEL 2018-10-20 06:22:00 Maru Pearson [facility] PROTHROMBIN TIME/INR 2018-10-20 06:22:00 Dariela Pearson [facility] MAGNESIUM 2018-10-20 06:22:00 Kurt Panchito [facility] PHOSPHORUS 2018-10-20 06:22:00 Kurt [facility] BASIC METABOLIC PANEL (7) 2018-10-20 06:22:00 Magalys Okeefesa [facility] LACTATE DEHYDROGENASE (LDH) 2018-10-20 06:22:00 Ra romario Pearson [facility] CBC W/PLT COUNT & AUTO DIFFERENTIAL 2018-10-20 06:22:00 Kurt [facility] CBC W/PLT COUNT & AUTO DIFFERENTIAL 2018-10-19 21:55:00 [facility] TRANSFUSION SERVICE REPORT - SCAN 2018-10-19 17:52:12 Provid er, Default Scanning [facility] CBC W/PLT COUNT & AUTO DIFFERENTIAL 2018-10-19 15:48:00 Kurt [facility] REPORT OF PROCEDURE - ENDOSCOPY URL 2018-10-19 11:05:57 Moriah Parisi lucila [facility] REPORT OF PROCEDURE - ENDOSCOPY URL 2018-10-19 09:17:18 Moriah Parisi [facility] TISSUE EXAM 2018-10-19 08:56:[facility]SY 2018-10-19 08:00:00 Shy Parisi [facility] UPPER ENDOSCOPY 2018-10-19 08:00:00 Vikas Parisianna [facility] COLONOSCOPY,POLYPECTOMY 2018-10-19 08:00[facility] 2018-10-19 03:52:00 Dariela Pearson [facility] BASIC METABOLIC PANEL (7) 2018-10-19 03:50:00 Eric Lei [facility] HEPATIC FUNCTION PANEL 2018-10-19 03:50:00 Maru Pearson [facility] MAGNESIUM 2018-10-19 03:50:00 Kurt Panchito [facility] PHOSPHORUS 2018-10-19 03:50:00 Kurt [facility] CBC W/PLT COUNT & AUTO DIFFERENTIAL 2018-10-19 03:50:00 [facility] (CELLAVISION MANUAL DIFF) 2018-10-19 03:50:00 Kurt Panchito Le [facility] PREPARE LEUKO-REDUCED RBC 2018-10-18 23:54:00 Keshav Murray [facility] CBC W/PLT COUNT & AUTO DIFFERENTIAL 2018-10-18 19:17:00 Kurt [facility] (CELLAVISION MANUAL DIFF) 2018-10-18 19:17:00 Kurt Panchito Le [facility] SODIUM, RANDOM URINE 2018-10-18 18:43:00 [facility] CREATININE, RANDOM URINE 2018-10-18 18:43:00 [facility] UREA NITROGEN, RANDOM URINE 2018-10-18 18:43:00 [facility] TRANSFUSION SERVICE REPORT - SCAN 2018-10-18 17:52:19 Provid er, Default Scanning [facility] CBC W/PLT COUNT & AUTO DIFFERENTIAL 2018-10-18 12:33:00 Kurt [facility] (CELLAVISION MANUAL DIFF) 2018-10-18 12:33:00 Panchito Hicks [facility] LACTIC ACID, VENOUS 2018-10-18 06:49:00 FrancinePanchito baumann [facility] BASIC METABOLIC PANEL (7) 2018-10-18 04:55:00 Eric Lei [facility] HEPATIC FUNCTION PANEL 2018-10-18 04:55:00 Maru Pearson [facility] PROTHROMBIN TIME/INR 2018-10-18 04:55:00 Dariela Pearson [facility] CBC W/PLT COUNT & AUTO DIFFERENTIAL 2018-10-18 04:55:00 Pablo Murray [facility] (CELLAVISION MANUAL DIFF) 2018-10-18 04:55:00 Keshav Murray [facility] CBC W/PLT COUNT & AUTO DIFFERENTIAL 2018-10-17 20:59:00 Pablo Murray [facility] (CELLAVISION MANUAL DIFF) 2018-10-17 20:59:00 Keshav Murray [facility] URINALYSIS W/ REFLEX URINE CULTURE 2018-10-17 17:55:00 Brandon Murray [facility] BASIC METABOLIC PANEL (7) 2018-10-17 17:55:00 [facility]TE 2018-10-17 17:12:00 Tavon Pearson [facility] US DOPPLER 2018-10-17 17:12:00 Mandeep Taylor [facility] DRUG SCREEN, URINE, COMPREHENSIVE 2018-10-17 15:48:00 Maryellen Fitch [facility] BLOOD CULTURE 2018-10-17 15:39:00 Keshav Murray [facility] MISCELLANEOUS LAB ORDER 2018-10-17 15:01:00 Junaid Pearson [facility] LACTIC ACID, VENOUS 2018-10-17 15:01:00 Keshav Murray [facility] PROCALCITONIN 2018-10-17 15:01:00 Keshav Murray Bandar [facility] ETHANOL 2018-10-17 15:01:00 Maryellen Pearson [facility] CBC W/PLT COUNT & AUTO DIFFERENTIAL 2018-10-17 15:01:00 Ant Lei am [facility] BLOOD CULTURE 2018-10-17 15:00:00 Keshav Murray [facility] TRANSFUSE LEUKO-REDUCED RED BLOOD CELLS 2018-10-17 13:42:37 Keshav Murray [facility] BASIC METABOLIC PANEL (7) 2018-10-17 06:25:00 Eric Lei [facility] HEPATIC FUNCTION PANEL 2018-10-17 06:25:00 Maru Pearson [facility] MAGNESIUM 2018-10-17 06:25:00 Keshav Murray [facility] CBC W/PLT COUNT & AUTO DIFFERENTIAL 2018-10-17 06:25:00 Ant Lei am [facility] (CELLAVISION MANUAL DIFF) 2018-10-17 06:25:00 Eric Lei [facility] TRANSFUSE LEUKO-REDUCED RED BLOOD CELLS 2018-10-17 05:27:28 Gabriel Mcbride [facility] ECG 12-LEAD 2018-10-17 03:56:53 Eric Lei [facility] TYPE AND SCREEN, AUTOMATED 2018-10-17 00:38:00 Eric Lei [facility] URINALYSIS W/ REFLEX URINE CULTURE 2018-10-17 00:37:00 Melissa Lei [facility] Plan of Care Planned Activity Planned Date Details Comments Source Future Scheduled Test 2021-06-18 00:00:00 Lipid panel (proce dure) [code = 12202201] [facility] Future Scheduled Test 2019-11-27 00:00:00 IMM Influenza Seas onal Nov to April (>/= 19 yrs) [code = IMM Influenza Seasonal Nov to April (>/= 19 yrs)] [facility] Scheduled Test 2019-10-28 00:00:00 INFLUENZA VACCINE (#1) [code = INFLUENZA VACCINE (#1)] [facility] Scheduled Test 1984 00:00:00 PNEUMOCOCCAL VACCI NE 2-64 YEARS AT RISK (1 of 3 - PCV13) [code = PNEUMOCOCCAL VACCINE 2-64 YEARS AT RISK (1 of 3 - PCV13)] [facility] Instructions Anemia [facility] Instructions GI Bleeding [facility] Encounters Start Date/Time End Date/Time Encounter Type Admission Type Attendi [facility] Care Department Encounter ID Source 2018-01-28 08:27:07 Inpatient [facility] 11 [id number] [facility] 2018-01-28 01:10:06 Inpatient [facility] 11 [id number] [facility] 2018-01-27 00:00:00 Inpatient [facility] 11 [id number] [facility] 2018-01-25 00:00:00 Inpatient [facility] 11 [id number] [facility] 2019-09-26 18:04:00 2019-09-27 19:03:00 Discharged Inpatient [address] [facility] [id number] [facility] 2019-01-09 00:00:00 2019-01-09 00:00:00 Outpatient [facility] [id number] [facility] 2018-10-16 12:41:00 2018-10-16 12:41:00 Registered Emergency Room 1 MARYLU DUQUE [facility] [id number] [facility] 2018-09-05 00:00:00 2018-09-05 00:00:00 Outpatient [facility] [id number] [facility] 2018-06-19 00:00:00 2018-06-19 00:00:00 Outpatient [facility] [id number] [facility] 2018-05-27 18:25:00 2018-06-01 07:30:00 Discharged Inpatient 1 KIET DUMAS [facility] [id number] [facility] 2018-01-30 00:00:00 2018-01-30 00:00:00 Outpatient [facility] [id number] [facility] 2018-01-29 00:00:00 2018-01-29 00:00:00 Outpatient [facility] [id number] [facility] 2018-01-24 21:17:42 2018-01-24 21:17:42 Emergency [facility] [id number] [facility] 2018-01-24 20:24:34 2018-01-24 20:24:34 Emergency [facility] [id number] [facility] 2018-01-24 17:21:24 2018-01-24 17:21:24 Inpatient [facility] [id number] [facility] Results Test Description Test Time Test Comments Results Result Comments Source Blood leukocytes automated count (number/volume) 2019-09-27 05:45:00 Test Item White Blood Count (test code = 6690-2) 7.33 4.8-10.8 [facility] erythrocytes automated count (number/volume)2019-09-27 05:45:00* Test Item Value Reference Range Interpretation Comments Red Blood Count (test code = 789-8) 1.71 4.3-5.7 [facility] measurement (moles/volume)2019-09-27 05:45:00* Test Item Value Reference Range Interpretation Comments Hemoglobin (test code = 42551-6) 6.0 14.0-18.0 Results called to CINTHYA TOVAR at 0637 on 09/27/19 by Roland Gore. RB [place]. [facility] hematocrit (volume fraction)2019-09-27 05:45:00* Test Item Value Reference Range Interpretation Comments Hematocrit (test code = 4544-3) 17.7 38.2-49.6 Results called to CINTHYA TOVAR at 0637 on 09/27/19 by Roland Gore. RB [place]. [facility] erythrocyte mean corpuscular sxnene9003-88-31 05:45:00* Test Item Value Reference Range Interpretation Comments Mean Corpuscular Volume (test code = 787-2) 103.5 81-99 [facility] mean corpuscular hemoglobin (mass per erythrocyte)2019-09-27 05:45:00* Test Item Value Reference Range Interpretation Comments Mean Corpuscular Hemoglobin (test code = 785-6) 35.1 28-32 [facility] eryth[facility] mean corpuscular hemoglobin concentration measurement (mass/volume)2019-09-27 05:45:00* Test Item Value Reference Range Interpretation Comments Mean Corpuscular Hemoglobin Concent (test code = 786-4) 33.9 31-35 [facility] HospitalRDW FexYv-Lbm5652-45-01 05:45:00* Test Item Value Reference Range Interpretation Comments Red Cell Distribution Width (test code = 53443-3) 19.9 11.7 -14.4 [facility] platelet count (count/volume)2019-09-27 05:45:00* Test Item Value Reference Range Interpretation Comments Platelet Count (test code = 777-3) 108 140-360 [facility] blood segmented neutrophil count as percentage of total fcgswhkjxj0911-04-29 05:45:00* Test Item Value Reference Range Interpretation Comments Neutrophils (%) (Auto) (test code = 91154-4) 74.2 38.7-80.0 [facility] lymphocyte count as percentage ot total bkoicaokix6540-30-44 05:45:00* Test Item Value Reference Range Interpretation Comments Lymphocytes (%) (Auto) (test code = 736-9) 8.6 18.0-39.1 [facility]Autom[facility] blood monocyte count as percentage of total opwcrooncz4257-31-72 05:45:00* Test Item Value Reference Range Interpretation Comments Monocytes (%) (Auto) (test code = 5905-5) 12.3 4.4-11.3 [facility] blood eosinophil count as percentage of total atuaqqqwni4249-72-40 05:45:00* Test Item Value Reference Range Interpretation Comments Eosinophils (%) (Auto) (test code = 713-8) 2.7 0.0-6.0 [facility]Autom[facility] blood basophil count as percentage of total xpqkpgilei9942-58-58 05:45:00* Test Item Value Reference Range Interpretation Comments Basophils (%) (Auto) (test code = 706-2) 0.7 0.0-1.0 [facility] HospitalFluoroscopic procedure less than one hour aevmevsk3199-04-34 05:45:00* Test Item Value Reference Range Interpretation Comments IM GRANULOCYTES % (test code = IM GRANULOCYTES %) 1.5 0.0- 1.0 [facility] blood neutrophil count 2019-09-27 05:45:00* Test Item Value Reference Range Interpretation Comments Neutrophils # (Auto) (test code = 751-8) 5.4 2.1-6.9 [facility]Blood lymphocytes count (number/volume) 2019-09-27 05:45:00* Test Item Value Reference Range Interpretation Comments Lymphocytes # (Auto) (test code = 41301-1) 0.6 1.0-3.2 [facility] monocytes automated count (number/volume)2019-09-27 05:45:00* Test Item Value Reference Range Interpretation Comments Monocytes # (Auto) (test code = 742-7) 0.9 0.2-0.8 [facility] HospitalAutom[facility] blood eosinophil count 2019-09-27 05:45:00* Test Item Value Reference Range Interpretation Comments Eosinophils # (Auto) (test code = 711-2) 0.2 0.0-0.4 [facility] HospitalAutom[facility] blood basophil count (count/volume)2019-09-27 05:45:00* Test Item Value Reference Range Interpretation Comments Basophils # (Auto) (test code = 704-7) 0.1 0.0-0.1 [facility] HospitalFluoroscopic procedure less than one hour cjwolbhm0843-26-13 05:45:00* Test Item Value Reference Range Interpretation Comments Absolute Immature Granulocyte (auto (doug t code = Absolute Immature Granulocyte (auto) 0.11 0-0.1 [facility] sodium measurement (moles/volume)2019-09-27 05:45:00* Test Item Value Reference Range Interpretation Comments Sodium Level (test code = 2951-2) 136 136-145 [facility] potassium measurement (moles/volume)2019-09-27 05:45:00* Test Item Value Reference Range Interpretation Comments Potassium Level (test code = 2823-3) 3.2 3.5-5.1 [facility] chloride measurement (moles/volume)2019-09-27 05:45:00* Test Item Value Reference Range Interpretation Comments Chloride Level (test code = 2075-0) 102 98-107 [facility] plasma carbon dioxide, total measurement (moles/volume)2019-09-27 05:45:00* Test Item Value Reference Range Interpretation Comments Carbon Dioxide Level (test code = 2028-9) 28 22-29 [facility] or plasma anion esv4302-89-79 05:45:00* Test Item Value Reference Range Interpretation Comments Anion Gap (test code = 37486-0) 9.2 8-16 [facility] urea nitrogen measurement (mass/volume)2019-09-27 05:45:00* Test Item Value Reference Range Interpretation Comments Blood Urea Nitrogen (test code = 3094-0) 11 7-26 [facility] plasma creatinine measurement (mass/volume)2019-09-27 05:45:00* Test Item Value Reference Range Interpretation Comments Creatinine (test code = 2160-0) 2.29 0.72-1.25 [facility]ere[facility] or plasma urea nitrogen/creatinine mass mcssa0587-82-48 05:45:00* Test Item Value Reference Range Interpretation Comments BUN/Creatinine Ratio (test code = 3097-3) 5 6-25 [facility] HospitalEstimated glomerular filtration rate (GFR) ewxvnvxokrobm3555-75-10 05:45:00* Test Item Value Reference Range Interpretation Comments Estimat Glomerular Filtration Rate (test code = 731120557) 32 >60 Ranges were taken from the National Kidney Disease Education Program and the [facility] [employer] literature.Reference ranges:60 or greater: Wdobny83-64 ( for 3 consecutive months): Chronic kidney disease 15 or less: Kidney failureSt. David's Georgetown HospitalGlucose erydcooaykx9058-19-24 05:45:00* Test Item Value Reference Range Interpretation Comments Glucose Level (test code = MKF9732) 109 74-118 [facility] or plasma calcium measurement (mass/volume)2019-09-27 05:45:00* Test Item Value Reference Range Interpretation Comments Calcium Level (test code = 44363-5) 7.9 8.4-10.2 [facility] plasma iron measurement (mass/volume)2019-09-27 05:45:00* Test Item Value Reference Range Interpretation Comments Iron Level (test code = 2498-4) 70 65-175 [facility] plasma iron binding capacity measurement (mass/volume)2019-09-27 05:45:00* Test Item Value Reference Range Interpretation Comments Total Iron Binding Capacity (test code = 2500-7) 118 261-4 78 [facility]ererum or plasma iron saturation measurement (mass fraction)2019-09-27 05:45:00* Test Item Value Reference Range Interpretation Comments Percent Iron Saturation (test code = 2502-3) 59 15-50 [facility] or plasma transferrin measurement (mass/volume)2019-09-27 05:45:00* Test Item Value Reference Range Interpretation Comments Transferrin (test code = 3034-6) 84 174-364 [facility]ere[facility] or plasma ferritin measurement (mass/volume)2019-09-27 05:45:00* Test Item Value Reference Range Interpretation Comments Ferritin (test code = 2276-4) 565.91 21.81-274.66 [facility] Centererum or plasma total bilirubin measurement (mass/volume)2019-09-27 05:45:00* Test Item Value Reference Range Interpretation Comments Total Bilirubin (test code = 1975-2) 11.4 0.2-1.2 [facility] [facility] HospitalFluoroscopic procedure less than one hour xcyusavi5425-31-22 05:45:00* Test Item Value Reference Range Interpretation Comments Aspartate Amino Transf (AST/SGOT) (test code = Aspartate Amino Transf (AST/SGOT)) 63 5-34 [facility] plasma alanine aminotransferase measurement (enzymatic activity/volume)2019-09-27 05:45:00* Test Item Value Reference Range Interpretation Comments Alanine Aminotransferase (ALT/SGPT) (test code = 1742-6) 16 0-55 [facility] HospitalAmmonia Eii-xEhq4131-14-01 05:45:00* Test Item Value Reference Range Interpretation Comments Ammonia (test code = 25313-1) 129 31-123 [facility]ererum or plasma lactate dehydrogenase measurement (enzymatic activity/volume)2019-09-27 05:45:00* Test Item Value Reference Range Interpretation Comments Lactate Dehydrogenase (test code = 851849866) 160 125-220 [facility]ere[facility] or plasma protein measurement (mass/volume)2019-09-27 05:45:00* Test Item Value Reference Range Interpretation Comments Total Protein (test code = 2885-2) 5.8 6.5-8.1 [facility]ererum or plasma albumin measurement (mass/volume)2019-09-27 05:45:00* Test Item Value Reference Range Interpretation Comments Albumin (test code = 1751-7) 2.4 3.5-5.0 [facility] HospitalPlasma globulin measurement (mass/volume) 2019-09-27 05:45:00* Test Item Value Reference Range Interpretation Comments Globulin (test code = 63395-8) 3.4 2.3-3.5 [facility]ererum or plasma albumin/globulin mass grcix4874-16-40 05:45:00* Test Item Value Reference Range Interpretation Comments Albumin/Globulin Ratio (test code = 1759-0) 0.7 0.8-2.0 [facility]ererum or plasma alkaline phosphatase measurement (enzymatic activity/volume)2019-09-27 05:45:00* Test Item Value Reference Range Interpretation Comments Alkaline Phosphatase (test code = 6768-6) 147 40-150 [facility] HospitalUS ABDOMEN WVUYDNEJ3996-76-74 20:45:00 [facility] [address] [address] Patient Name: INDRA GALVAN MR #: [id number] : Age/Sex: 38/M Req #: [id number] Adm Physician: KHLOE BOX MD Ordered by: KERVIN FRYE, VIRGILIO FRYE Report #: [id number] Location: MED/SURG Room/Bed: [facility] Procedure: [id number] US /US ABDOMEN COMPLETE Exam Date: 09/26/19 [...] COPY TO: VIRGILIO GALEANA Stool gastrointestinal hemoglobin qoxmvedcm7522-89-85 19:32:00* Test Item Value Reference Range Interpretation Comments Stool Occult Blood (test code = 2335-8) POSITIVE NEGATIVE [facility] HospitalBlood macrocytes detection by light qwfdtsblnz9739-26-98 11:40:00* Test Item Value Reference Range Interpretation Comments Macrocytosis (test code = 738-5) SLIGHT [facility] HospitalAutomated reticulocyte count as percentage of total hsbtgtjmecph7567-58-65 11:40:00* Test Item Value Reference Range Interpretation Comments Percent Reticulocyte Count (test code = 87104-0) 11.2 0.8-[address] [facility] HospitalProthrombin time (PT) in platelet poor plasma by coagulation arwei6913-17-91 11:40:00* Test Item Value Reference Range Interpretation Comments Prothrombin Time (test code = 5902-2) 20.0 11.9-14.5 [facility] HospitalINR in Platelet poor plasma by Coagulation npjde5438-95-03 11:40:00* Test Item Value Reference Range Interpretation Comments Prothromb Time International Ratio (test code = 6301-6) 1.60 Oral Anticoagulant Therapy INR Values:1. Low Intensity Therapy 1.5 - 2.02 . Moderate Intensity Therapy 2.0 - 3.03. High Intensity Therapy(1) 2.5 - 3. 54. High Intensity Therapy(2) 3.0 - 4.05. Panic Value INR > 5.0 [facility] HospitalActivated partial thromboplastin time (aPTT) in platelet poor plasma by coagulation mbjjd7657-33-64 11:40:00* Test Item Value Reference Range Interpretation Comments Activated Partial Thromboplast Time (test code = 74936-7) 39.4 23.8-35.5 [facility]ererum or plasma conjugated bilirubin measurement (mass/volume)2019-09-26 11:40:00* Test Item Value Reference Range Interpretation Comments Direct Bilirubin (test code = 99916-6) 7.7 0.0-0.5 [facility]ererum or plasma indirect bilirubin measurement (mass/volume)2019-09-26 11:40:00* Test Item Value Reference Range Interpretation Comments Indirect Bilirubin (test code = 1971-1) 5.4 0.3-1.2 [facility]ererum or plasma creatine kinase measurement (enzymatic activity/volume)2019-09-26 11:40:00* Test Item Value Reference Range Interpretation Comments Creatine Kinase (test code = 2157-6) 22 30-200 [facility]ererum or plasma creatine kinase MB measurement (mass/volume)2019-09-26 11:40:00* Test Item Value Reference Range Interpretation Comments Creatine Kinase MB (test code = 50895-2) 0.50 0-5.0 [facility] HospitalTroponin I measurement by highly sensitive enzyme fwzmtfayvia8282-56-71 11:40:00* Test Item Value Reference Range Interpretation Comments Troponin I (test code = 71556-9) 0.012 0-0.300 [facility] HospitalBlood cobalamin (vitamin B12) measurement (mass/volume)2019-09-26 11:40:00* Test Item Value Reference Range Interpretation Comments Vitamin B12 Level (test code = 41876-1) [address] [facility] HospitalCHEST SINGLE (PORTABLE)2019-09-26 11:24:[address] [address] Patient Name: INDRA GALVAN MR #: [id number] : 1980 Age/Sex: 38/M Req #: [id number] Adm Physician: Ordered by: MARYLU KELSEY DO Report #: [id number] Location: ER Room/Bed: Procedure: [id number] DX/CHEST SINGLE (PORTABLE) Exam Date: 09/26/19 Exam Time: 1100 REPORT STATUS: Signed EXAMINATION: CHEST SINGLE (PORTABLE) INDICATION: Anemia COMPARIS ON: Chest CT 05/31/2018 FINDINGS: LINES/TUBES:Right IJ tunneled nathaniel lysis catheter terminates at the superior cavoatrial [...] COPY TO: MARYLU KELSEY DO MR, ABDOMEN, OMLN1231-06-54 12:54:00FINAL REPORT MRI of the abdomen with [...] Rodriguez Verified Date/Time: 05/23/2019 12:54:18 [place] Location: [address] Ortho Consult [place] Room abdomen with/without [...] Rodriguez Verified Date/Time: 05/23/2019 12:54:18 [place] Location: [address] Ortho Consult [place] Room [facility] Metabolic Kehvl1917-11-71 09:34:00* Test Item Value Reference Range Interpretation [...] mg/dL 70-105 H Calcium (test code = 97810-1) 8.5 mg/dL 8.4-10.2 EGFR (test code = 77326-2) 25 mL/min/1.73 sq m ESTIMATED GFR IS NOT ACCURATE CREATININE CLEARANCE IN PREDICTING GLOMERULAR FILTRATION RATE. ESTIMATED GFR IS NOT APPLICABLE FOR DIALYSIS PATIENTS. PHILLIP (test code = PHILLIP) Roll Filler ID - ROSIANGSpecimen moderately icte waldemar Lab Interpretation (test code = 29642-7) Abnormal [facility] METABOLIC PLJSV6201-15-60 09:34:00* Test Item Value Reference Range Interpretation [...] GFR IS NOT APPLICABLE FOR DIALYSIS PATIENTS. Roll Filler ID - PORSHAEDUARDOparminder moderately ictericHepatic function vqwpc4638-29-47 09:29:00* Test Item Value Reference Range Interpretation Comments Protein, Total (test code = 2885-2) 6.5 6.0- 8.3 gm/dL Albumin (test code = 42420-2) 3.4 g/dL 3.5-5 L Total Bilirubin (test code = 1975-2) 5.4 mg/dL 0.2-1.2 H Bilirubin, Direct (test code = 1968-7) 2.6 mg/dL 0.1-0.5 H Alkaline Phosphatase (test code = 6768-6) 200 U/L 40-150 H AST (test code = 1920-8) 46 U/L 5-34 H ALT (test code = 1742-6) 12 U/L 6-55 PHILLIP (test code = PHILLIP) Roll Filler ID - Kavon moderately icte waldemar Lab Interpretation (test code = 94707-2) Abnormal [facility] CenterHEPAT[facility] FUNCTION GXVOI8817-24-13 09:29:00* Test Item Value Reference Range Interpretation [...] (test code = 347) 12 U/L 6-55 Roll Filler ID - Kavon moderately ictericCBC with platelet count + automated bpgd6982-71-87 09:27:00* Test Item Value Reference Range Interpretation [...] K/CU MM L MPV (test code = 18017-0) 8.4 fL 9.4-12.4 L nRBC (test code [...] % 0-1 Lab Interpretation (test code = 00995-7) Abnormal [facility] W/PLT COUNT & AUTO ZZUUAUPNOWEK6269-38-58 09:27:00* Test Item Value Reference Range Interpretation [...] code = 2801) 0 % 0-1 Prothrombin time/ITG5773-87-28 09:19:00* Test Item Value Reference Range Interpretation [...] heart valves. Lab Interpretation (test code = 31551-2) Abnormal [facility] CenterPROTHROMBIN TIME/SKH1588-30-33 09:19:00* Test Item Value Reference Range Interpretation [...] patie nts wiht mechanical heart valves.MISCELLANEOUS LAB UHXEH4418-50-81 08:04:00* Test Item Value Reference Range Interpretation Comments SCAN RESULT (test code = 1204695) Treadmill tolerance(Non-Nuclear Treadmill)2019-05-15 22:24:56Interface, External Ris In [...] Sera, Hi pinedo (8216) on 05/15/2019 10:24:47 [facility]ABOLIC ZVMIA2031-76-20 11:48:00* Test Item Value Reference Range Interpretation [...] GFR IS NOT APPLICABLE FOR DIALYSIS PATIENTS. Roll Filler ID - VIDYA MSpecimen slightly ictericBILIRUBIN, PRKUEX0191-81-54 11:32:00* Test Item Value Reference Range Interpretation Comments BILIRUBIN DIRECT (BEAKER) (test code = 706) 2.0 mg/dL 0.1-0.5 H HEPATIC FUNCTION OFZKB1038-92-56 11:32:00* Test Item Value Reference Range Interpretation [...] (test code = 347) 8 U/L 6-55 Roll Filler ID - VIDYA MSpecimen slightly ictericCBC W/PLT COUNT & AUTO DWBTKCXQAHFU4716-65-75 11:30:00* Test Item Value Reference Range Interpretation [...] code = 2801) 1 % 0-1 PROTHROMBIN TIME/FQS8778-90-50 11:25:00* Test Item Value Reference Range Interpretation [...] mechanical heart valves.Body fluid culture + gram wereu0475-85-72 15:44:00* Test Item Value Reference Range Interpretation Comments Result (test code = 6463-4) No growth Gram Stain Result (test code = 1123) No organisms seen [facility] + GRAM SQKZC6367-67-48 15:44:00 * Test Item Value Reference Range Interpretation Comments CULTURE (BEAKER) (test code = 1095) No growth GRAM STAIN RESULT (BEAKER) (test code = 1123) 1+ White blood cells seen GRAM STAIN RESULT (BEAKER) (test code = 87493) No organisms seen Ooxfwveiv0240-74-74 06:38:00* Test Item Value Reference Range Interpretation Comments Magnesium (test code = 54730-8) 1.9 mg/dL 1.6-2.6 PHILLIP (test code = PHILLIP) Roll Filler ID - ULYSSES M Lab Interpretation (test code = 63767-9) Normal [facility] HospitalPhosphorus2020-03-14 06:38:00* Test Item Value Reference Range Interpretation Comments Phosphorus (test code = 2777-1) 3.4 mg/dL 2.3-4.7 PHILLIP (test code = PHILLIP) Roll Filler ID - ULYSSES M Lab Interpretation (test code = 67887-2) Normal [facility] HospitalPHOSPHORUS2020-03-14 06:38:00* Test Item Value Reference Range Interpretation Comments PHOSPHORUS (BEAKER) (test code = 604) 3.4 mg/dL 2.3-4.7 Roll Filler ID - ULYSSES EZTAMPNOGM5947-12-25 06:38:00* Test Item Value Reference Range Interpretation Comments MAGNESIUM (BEAKER) (test code = 627) 1.9 mg/dL 1.6-2.6 Roll Filler ID - ULYSSES MBlood Culture - Routine (Left Venipuncture)2019-05-09 20:01:00* Test Item Value Reference Range Interpretation Comments Result (test code = 6463-4) No growth in 5 days [facility] HospitalBLOOD LDSYQPG8184-13-39 20:01:00* Test Item Value Reference Range Interpretation Comments CULTURE (BEAKER) (test code = 1095) No growth in 5 days BLOOD KOXJKJE2611-67-86 20:00:00* Test Item Value Reference Range Interpretation Comments CULTURE (BEAKER) (test code = 1095) No growth in 5 days Ygmdsfyq3877-13-19 16:28:00* Test Item Value Reference Range Interpretation Comments Case Report (test code = 104) Medical Cytology Report Case: [id number] Authorizing Provider: Robbie New MD Collected: 05/07/2019 1920 Ordering Location: [address] [address] CCU Received: 05/08/2019 1445 Pathologist: Iman Yang MD Specimen: Pericardial DIAGNOSIS (test code = 3220) y7vjlHTmIUPkv8joEJQpdTEcIeGvOsBcYfMzWnwpjKJnYYkngzUqLTmgc8PtZ5XnFjSkJBafclGuQKKq RkrnwxevSLLhQEF7vwDhHNBkZNetBCRgFDluYg6ekFRslSavBtIbLCPnp4rdwyHAgxnlvEw1n1wlHLYw MmW2ePMmSTbpN3bfteGqhZLdACHvJSd0pE34JNEsaG 6oeDYtQWduedIrYaN2JFwmIYJdKdQ7VTSigJKxUYDcZ1exMZXnCVzxYXEuGKwhmDKnNZG5iDpkg6K4vY WtgPJheMgkGrOeUdPkFVXSz3JcLYx8pWyvE9YuNLWhSnF5lVSkGHXqOWytQILdZIQoffQ6tM34ZFmbgp N0yGKhb5Fym34zc608fL4dhYTrESD7PTStXSZlqJBx LKUvHQE8ASPbsIHiJ8t0BfHvxQXzW5A8AsMsoDEwJ6I8WqAepEQpW2V4VkTtfYQdPAIsoIRlYe1frDQy mWYyxj7tik51LAX8f9UckWalZFV0CVI9ToRjRt0zrXMxLZGhET5mDtOoqFBeWGOqpx10qQezRBspkyXi wW1iZwXeONCdrTAiOBSgVD6xxUXzHWQeoL3mgsqxOM HnYbHorglkZWNymQazmkPpOj0hdKswOCC8FQwvU1wrmK8pWrZ3BBrcE4spuR6mQXf5OIikiAK9MIBpcH 1zPT9zgjycp2wfRuLuLX0ufxpac9idJpVwSD7koex0y5zzZtBtHD3xobxih1dhPcBhKGiaCDIpstakAO Ceg8JpozdkTTXyw8SlP3LoqRziW88saKdlR08zEQJa iNmdzW2njHdowT7pTdGuEjTqHJxayDjaiGKmvgfwTLzyosYzVYhclzqzQLBmTCojA7jcSkNsVHAyaQiy RUjlm0DlHLTjAXFtVbOpLZFHCBXUOoOUIYxlNzyFQBHkJDMAJD3FDAqGAso8WTvhhpEnHZZeVPWBSMqX LOsZKEKLE2ZzHNZGFOaQYC8QUPgcDHCmuRRfzNbgqk ZqGCjcv5EzYOixYZMkED8evVepPZWaKC3yZXJcU7nboL4npcd4RmEhMRXpSaV5BIQjbdT5Qri3SYTuWL uow4kfy6CyXFKaLYq8yVcvKnNaZFQzs9smxhIdJqLkOKCgVEVlIRWjmGOaZ185j6giy5wwtqJfcMK6NI QaZJF0NQektxCkdhM1RVzftBLeDuM3DDddqsSbDEcw khWureBmNji7VYCuR189IPY1oLkwm6hmCIK6LTEzBVWeDuQrVb2bzBHsX142YMOxWYXETARqsAf0RJXb ewGlruDrzMUJv606Q805p0hqCNPhylDcxXtDrxkyi2ixR696TLFvoOCodkSlEkJnFUIeuOVhaCF6PMNf OB3kuyrfSRlvOWysJVWtkhF3URSdhWEtA6BlGRJhAO 2ftowyULW1AZztLYXsWWO2YdNoPQHsd4Qlydz5IpMjve7sts23UCH9c7PcsDbpQGU3NXZ5ZmLuYp6txJ IfSWZhLP2wHcJwsPOpCXLppa33dWbyMCjfHLM9SMFuwcJns9Vng1kkRbEifnQjI1fhU0FhPFLdNYYwLP XgBpZoyqRuy4Myp4OxwARmeGg9r9avMWDuRPGqiUiv v2fyYXW3IOTlrZLoE3ikkO7bTDPiAA7sbjfnx7uyMEdtTYerGEBmwTA9geM2IPOzvULeC3VciH0rTNJg NVesWMGlgap4ZwRgRq9xqPCjvWckKBgqXfpuAWndUKOgazBrvzLidLgyWOFeJYOmTPqiSDJfRQxsEWPl XGZzMjRccWxcbGFuZzEwMzNcaGljaFxmMVxkYmNoXG DwKUhaB3wiQcYwWeJfFqb9PZNxhLViWFHaWqv3GOUuxEKuXESOwLxqoA0hOPAmbVwtiI5zwKF1XJDfyn NtmYKObX8cVIYOtJ5wRxN5NzTcFyR7FRQwRYkerRSgoB1= CPT Code(s) (test code = 3357) b4dfdZMjGEUnyBKpGmTcZVWrFUPut5lvAQPrcDLuUuQlKuUpVrWsZoiczVWsQWQmUmCue2bku071yABw d7rzVPMbBwS0kOEdROAurJFuE072u4oek3cgekLoiRU5RVAoVTW8SHfwrkVjxtL5AHzwhPIzAdY2IJyq dhEaYNvxixYwuqTtAqj4WACmT721WAC1uDrkw2ytTJ B2OXDvHEBuWtXyJx8ylDObD250QLJyTFNWZQCqqZf7WLAnqnDyyuDexTJOy674J735j9vaOYTwmyJptU vFnwrug5hdW386DJLgwZCfezOoPjTqGAPxzCJeeTU7IUEqOU9gaofqLeQuAV8phwmoDpCnDI9yvfn1Qj UwKY6hmmebSoVmIZkxESKiqvzzOKWuf9NgaweiNG7d O4Psa1S8rQ2hoDRnQLHjjQYaDoGwIXXhqk6icFFrTUjmt8TcKOL7tfH9uLYjkWKbLNRhAV20Jhdxu3Nx EsygBGC9SOJnngOsw6Jay2bjOtMsyoWtU2vtC2QmPJEuFRQcDQSbCbUwfxPkc4Xwn8BqkNBxyDl3a4sm SZQgJOQnjUnvg6owKBZ8GBCxS1N1hXHhd4tpDNgrYR SucQR4doheBXxrTFTihoH5jjvxCRgdSXQwuAC2pdiiTWeyCBTfCzY5uejpEJmwAOCdIXK4DItxh039CZ F1NYsmFiqzCJngEZNqheTmunMxuNeyUHWvHXSxAAopADVdWXboAVBtVKNcEtIegGiuiBpisA4eHjFiVt SeCVpvCT2mJTUjR1wwxHZxBSVgUKRkX2ysYuPtbE2ntFkuIVhaqoWjRZh0NZH6ULCbpc4= CLINICAL DATA (test code = 3355) v2zzsXVeXIIdoYVlOcGzJQNzTWLah2mpOWFtoDEyRgNeMhFdNyEfHevmiAOvERQdZuVuw8vhl167rBBr h5reSLSzQbR0lEWiDFLfyPRdR608s2wal1rhduWpzWY8ZZRqNZW7ILypqpNpdfC6JZvpdECaRpM9ZJqc awYnFMbxjmAtppCoWsd3GBJlS871XAJ0nUovn9vnBO Y4XEGwBTNvEeLePt6rtZKkM304SOMmRJBDLUNxgXp2FRUsweKyyxPfpXJFn948C686s5dyLXBvhiZwbD yJorumi7vrV555RCUjoZXtooOcQiVsGYDuvNAwdLK9ULXdBM0nuvfnIrLwOL8mgenkZyQiXU5quvl8Zt QoBX5mgpsmKhPvZYukWSWxkcioKMUwg7HaazqrRJ9l A2Dno6F3jW2mzQMiDFRnaZXcPrZnWNDpup5psDWwLMzmx6XcGPE0dyX4xARiiFJlJVIlAD09Fjryx8Aq BlawKUX7NTDuolMlv8Tta0pcRdDqhuRzJ1ckD3OiUVOrKJWjOASkHbEwniWle7Kxg3WijZBjiOq6z2vd YQEhSLDjsOfob2cpTPH8NKYeG5O0mPLla9ikSHyzFL JqqEJ6tutbKUrgJXCxxrZ4qgcfZYzwHOUogEH9mwkxIMknABYjKbL1yfghRVisMBPrXZN0NZsif521XB E0OKurMkteDMkuWZQvfqGpmkLkyWevYGMgCJLiMLosQFBuFDryLIQjMGQbYzHwdUfayQnnzH6yBrCuTa DiGUdhNZ1aULEvF0ujeGJgZOOaVNRyQ4eqOnJgvF7q mHuzHAqqvsVaUVQcunffOJDrlLBcGIIrQvPotZ2qYYZqfYJlrZ4cjWUnoZPdcN== SPECIMEN SOURCE (test code = 3377) z5redORmZGJrmTKzBpIzHNHkYUOjw3zfLSCioHTgWxFvWyElOvAuArcbfMBeSOIhWoYoe7efd730sTZk n4jbNKZcAoH0cSAcSONluSFpA023p3yej1ibubDewLO1YBTbZTW2WLswxpShxdN9ZFhovQQpXrJ5WFki uhFyYQefbuYilkYcHps4CEUeK614YDH7yDxfp5tpRZ E5FABgIZEdNyMrYv0mePKuQ205HYJeRBIEHJNxlNl9UIWxykSuejCcgOMKa907N299t5bePWPqmcKsmL fFdhulo6gqF430RJIazRQtawWjBdLqKNZusUUgwYC2UNDyZF0mezvfChSkSO8lmnzcScNgUI6nboo6Gc PyRP5avcllRaMlPJdwEJIknusdAUBne9RncszqCC4l I7Vfg9Q3zC4uhYZjNAUibLImErVbOYGjtd5aaCFoMFskh0GkXSV5nmA6oPJslYIyQTInTW18Anojv3Ve QulgKSH2ECMblqDgb3Exk4yoKnEmxmTwS0moV4WaJZAeVJOxIDCiHbJzuuYfb7Olu4FsxCEanFd2g3be TUSuXPCyiFdfm5cpUBT5LWVtN2D7pETfi5hpREaeEJ VvpAP5exwjMBrnTQTvwjF3ftmuYKijCAXflBY4fpaiUEvfZGRyYgS4hmfcKDidOHTkHGX5WOszx289ZV I0OKfyBktoNAfhJRQgiyVimgQmqNuiUWKbPSGqPSqnHNAuZOquMYKsXIIwCpPsiFvrxCundK0wIlZnDr XyKShvTU6uRUNtJ0ekqYPlKRRuUOWeZ3clWpDzzM8e aFxmMFxmczIwIFBFUklDQVJESUFMIEZMVUlEXHBhcn0= GROSS DESCRIPTION (test code = 3366) q0ikkXZuNCZriWNdDeLjAZFsWWByq5hpIUHnlQEsNeVvTdJgTuDbUpcflQTrDSQpFuHfq5ylp458iUVg d0xsPEPoZdM4yAAsJNEqiVHpU492ALZkCNdtz4bgf6GxOXSvoEVda8J0YWAFvvlmfTu9nOsqU58qz7H2 UxvlX4vjKNYgLOEaD2ZkGQ2iIHLpOti7GZB3PYA2XY KgYQXyK1TjFP8mZLDldDTnGFf1o5vreYvxWHKyKGZ9b1pjLMqcsqQbQQ6ang5ihJc8w1sbiaVoEBYoOO QwaAHGHYZbK8YgmUbkVd6vcTr9nEjrJgibCUS8Wwo1SA7aka32jhr8pAmmSRPnjuezBcA5LNqyOGCxuh tlQUt5HJqoWUEdwKjfHWnjDUGtbmciSUsqEVJufCts USoiGXLeJpyhLUkhVIVxLLT2RNhhr458DGT5PJhxi4qfv7fgrIRhOsr1PZJyHdEnGavnBHopg4Ypp3ok JVAevx6sNUF4xLSxqOzmk8S5bBOpLDUacZIcgfRhGJBzYkH7LQkwUQ1svd20ORSzSYG8xg7flSQvgFkl hyJviSPbVVmzX0OgXSYnk040GETnJ4QgMNNbq9V6hx AtVjHiUASmkLG1jvA4CIOjDFv5cTMnxtP1otXcuTNgL4iuuM00BoScxVYjI3JlaG58ScVwrJTzK4LydM 91ZiVccGBjW5BerN79FpGjfTDaTDXtdGCpAv0guWQchKWcy7SbjFMhOAmdC88hl824MIQdwnRlH3plcG SdymldsYSzhtgmFFwpihK2JPUvKPAqFDabWGEkXDIk HuGnpVHuOzYiUyQgxEsylIpmMZxbIhWkFJYuKNrmF3ewMbNmCaVvFmF7NNXmzNdjYVOyg59byNJidLVq PEfxGHWxhHGmn6DukxOfuWGcVEPqtRrmG7CoYLwxGKJuLITwSGCyjcDODPExoWNtGQnkRAVbAmZpWLXd cn0= STATEMENT OF ADEQUACY (test code = 2757) Satisfactory Gross assessment was performed at (test code = 2777) [facility], Department of Pathology, [address] [place] [address], [place] [address], Technical component was performed at (test code = 2778 ) [facility], Department of Pathology, [address] [place] [address], Professional component was performed at (test code = 2 779) [facility], Department of Pathology, [address] [place] [address], [facility] 16:28:00Medical Cytology Report Case: [id number] Authorizing Provider: Robbie New MD Collected: 05/07/2019 1920 Ordering Location: [place] [address] CCU Received: 05/08/2019 1445 Pathologist: Iman Yang MD Specimen: Pericardial PERICARDIAL FLUID (CYTOSPINS): - NEGATIVE FOR MALIGNANCY Signing Pathologist Direct Phone Line: [phone] signed by Iman Yang MD on 05/09/2019 at 4:28 [id number] effusion, cirrhosisPERICARDIAL QOMUU120 mls bloody fluid; 4 cytospinsCollected: 031 120Received: [id number] [facility], Department of P athology, [address] [place] [address], [facility], [address] [place] [address] [phone], [facility], [address] [place] [address], XYK/CT, CARDIAC PERF REST AND UKFEGL6153-03-03 16:05:00Reason for exam:->CADFINAL REPORT PROCEDURE: MYOCARDIAL PERFUSION PET IMAGING (Rest/Stress)CPT CODE: 30728 INDICATION: Assess symptoms/risk factors of possible CAD [...] Verified Date/ Time: 05/09/2019 16:05:35 Reading Location: [address] [place] [facility] Myocardial Perfusion Pet/CT (Rest & Stress)2019-05-09 16:05:00Interface, External Ris In - 05/09/2019 4:07 PM CDTFINAL REPORT PROCEDURE: MYOCARDIAL PERFUSION PET IMAGING (Rest/Stress)CPT CODE: 91694 INDICATION: Assess symptoms/risk factors of possible CAD [...] MDReport Verified Date/Time: 05/09/2019 16:05:35 Reading Location: [address] [place] [facility] [id number] 06:54:00* Test Item Value Reference Range Interpretation Comments Protein, Total (test code = 2885-2) 6.1 6.0- 8.3 gm/dL Specimen slightly hemolyzed Albumin (test code = 92907-5) 2.9 g/dL 3.5-5 L Specimen slightly hemolyzed [...] mg/dL 70-105 H Calcium (test code = 86260-6) 8.1 mg/dL 8.4-10.2 L AST (test code = 1920-8) 30 U/L 5-34 Spe cimen slightly hemolyzed ALT (test code = 1742-6) 8 U/L 6-55 Spe cimen slightly hemolyzed EGFR (test code = 49479-7) 16 mL/min/1.73 sq m ESTIMATED GFR IS NOT ACCURATE CREATININE CLEARANCE IN PREDICTING GLOMERULAR FILTRATION RATE. ESTIMATED GFR IS NOT APPLICABLE FOR DIALYSIS PATIENTS. PHILLIP (test code = PHILLIP) Roll Filler ID - ULYSSES MSpecimen slightly icteric Lab Interpretation (test code = 57610-0) Abnormal [facility] Center[facility]PRE[facility]ENSIVE METABOL[facility] [id number] 06:54:00* Test Item Value Reference Range Interpretation [...] GFR IS NOT APPLICABLE FOR DIALYSIS PATIENTS. Roll Filler ID - ULYSSES MSpecimen slightly ictericCBC W/PLT [...] (test code = 2801) 1 % 0-1 [id number] 06:50:00* Test Item Value Reference Range Interpretation Comments MAGNESIUM (BEAKER) (test code = 627) 2.1 mg/dL 1.6-2.6 Specimen slightly hemolyzed Roll Filler ID - ULYSSES NVDLTYCPGTC4220-41-40 06:50:00* Test Item Value Reference Range Interpretation Comments PHOSPHORUS (BEAKER) (test code = 604) 3.4 mg/dL 2.3-4.7 Specimen slightly hemolyzed Roll Filler ID - ULYSSES MLimited 2D Fmteamelntgewc6284-56-33 13:37:26Ejection FractionSLEH ECHO HEARTLAB MKCKESSON CPACSInterface, External Ris In - 05/08/2019 1:37 PM CDTTransthoracic Echocardiography Report (TTE) Demographics Patient Name INDRA GALVAN Date of Study 05/08/2019 YAN CORDERO Gender Male Visit Number [id number] Race Unknown Room Number 6213 Number Date of 1980 Referring Physician ROBBIE NEW Age 38 year(s) Laser Set Up Operator Renny Yepez Print Line Operator Nick Navarro I nterpreting Brandy Jackson MD [...] noted. Signature Electronically signed by Vic Caruso MD([facility]) on 05/08/2019 01:37 PM Findings Technical Quality: Technically adequate e xam. Left Ventricle Normal left ventricular chamber size. Normal wall thickness. Normal overall left ventricular systolic function. No apparent segmental wall motion abnormalities. Estimated LVEF by qualitative assessment is normal (>60%) . Left Atrium LA size is sdlt-dn-trttdncmmj enlarged . Right Ventricle Normal right ventricle [...] Ao Root S of Yasmin.: 3.23 cm [facility] W/Doppler(CW/PW/Color)2019-05-08 09:47:52Ejection FractionSLEH ECHO HEARTLAB MKCKESSON CPACSInterface, External Ris In - 05/08/2019 9:48 AM CDTTransthoracic Echocardiography Report (TTE) Demographics Patient Name INDRA GALVAN Date of Study 05/07/2019 YAN CORDERO Gender Male Visit Number [id number] Race Unknown Room Number 6213 Number Date of 1980 Referring Robbie New MD Physician Age 38 year(s) Laser Set Up Operator Aneudy Jerez Interpreting Physician MELVA Jackson [...] A moderate-large circumferential pericardial effusion is present. [facility] Hospital[facility]ual Bchhhnlgdlta8755-89-84 07:53:00* Test Item Value Reference Range Interpretation [...] 3438) Adequate PHILLIP (test code = PHILLIP) Roll Filler ID - Ivonne Espinal comments: Slide comm ents: Lab Interpretation (test code = 21541-1) Abnormal [facility] HospitalCBC [facility]/PLT COUNT & AUTO [id number] 07:53:00* Test Item Value Reference Range Interpretation [...] (CELLAVISION)(BEAKER) (test code = 3438) Cheryl quate Roll Filler ID - Ivonne Espinal comments: Slide comments: Inxsubeaidohd8499-04-62 04:01:00* Test Item Value Reference Range Interpretation Comments Procalcitonin (test code = 60303-0) 3.64 ng/mL <0.05 H PHILLIP (test code = PHILILP) SEPSIS RISK (ng/mL)Low: 0.05-0.50Intermediate: 0.51-2.00High: >=2.01 Lab Interpretation (test code = 04866-9) Abnormal [facility] CenterGawspoHYTESVPXPHZIW2982-05-51 04:01:00* Test Item Value Reference Range Interpretation Comments PROCALCITONIN (BEAKER) (test code = 3036) 3.64 ng/mL <0.05 H SEPSIS RISK (ng/mL)Low: 0.05-0.50Intermediate: 0.51-2.00High: > =2.01BASIC METABOLIC [id number] 03:47:00* Test Item Value Reference Range Interpretation [...] GFR IS NOT APPLICABLE FOR DIALYSIS PATIENTS. Roll Filler ID - LAUREN WSpecimen moderately [id number] 03:44:00* Test Item Value Reference Range Interpretation Comments PHOSPHORUS (BEAKER) (test code = 604) 2.2 mg/dL 2.3-4.7 L Roll Filler ID - LAUREN [id number] 03:44:00* Test Item Value Reference Range Interpretation Comments MAGNESIUM (BEAKER) (test code = 627) 1.8 mg/dL 1.6-2.6 Roll Filler ID - LAUREN WPrepare Leuko-Red [id number] 23:54:00* Test Item Value Reference Range Interpretation Comments CROSSMATCH (test code = 2264) COMPATIBLE Unit ABO (test code = 4911715) B Pos UNIT NUMBER (test code = 934-0) [id number] Status (test code = 4033983) TX_TIMEINCHART Blood Bank Product (test code = 2263) RED BLOOD CELLS PRODUCT CODE (test code = 933-2) [id number] [facility] HospitalCarotid doppler qwbmtnxlk6329-06-95 16:57:29 Ejection FractionSLEH ECHO HEARTLAB MKCKESSON CPACSRight Impression1. The general internal medicine doctor al carotid artery is within normal limits.2. [...] - Additional Measurements:ICAPSV/CCAPSV 1.13.ICAEDV/CCAEDV 1.55. Carotid Left Silivno urements+ +----+----+-----+ + +-------- ---+!Location !PSV !EDV [...] 05/06/2019 YAN CORDERO Age 38 Visit Number [id number] Gender Male Accession Elizabeth tinajero [id number] Date of 1980 Referring Radha Acevedora Room Number 6213 Physician SARAH Laser Set Up Operator Cb Maki RVS Interpreting Karen Blackwell, Physician [...] 0.96.ICAEDV/CCAEDV 1.42.[facility] W/PLT COUNT & AUTO [id number] 11:24:00* Test Item Value Reference Range Interpretation [...] (CELLAVISION)(BEAKER) (test code = 3438) Cheryl quate Roll Filler ID - Marcella OverholtUser comments: Slide comments: COMPREHENSIVE METABOLIC [id number] 07:21:00* Test Item Value Reference Range Interpretation [...] GFR IS NOT APPLICABLE FOR DIALYSIS PATIENTS. Roll Filler ID - ULYSSES MSpecimen slightly tynkesj1G Echo W/Doppler(CW/PW/Color) 2019-05-06 15:24:38Ejection FractionSLEH ECHO HEARTLAB MKCKESSON CPACSInterface, External Ris In - 05/06/2019 3:24 PM CDTTransthoracic Echocardiography Report (TTE) Demographics Patient Name INDRA GALVAN Date of Study 05/06/2019 YAN CORDERO Gender Male Visit Number [id number] Race Unknown Room Number 2454 Number Date of 1980 Referring Robbie New MD Physician Age 38 year(s) Laser Set Up Operator Aneudy Jerez Print Line Operator Joanna Whitley Interpreting Pratik Alexis MD Procedure [...] Velocity: 2.75 m/s TR Gradient: 30.26 mmHg [facility] HospitalUrine bnksfjw7791-25-05 10:47:00* Test Item Value Reference Range Interpretation Comments Result (test code = 6463-4) <10,000 col/mL skin chase [facility] HospitalCBC W/PLT COUNT & AUTO [id number] 09:56:00* Test Item Value Reference Range Interpretation [...] (CELLAVISION)(BEAKER) (test code = 3438) Cheryl quate Roll Filler ID - Giselle Quiñones comments: Slide comments: WBC: SEGMENTED WI TH TOXIC GRANULATIONS PRESENT ECG 12 cnxm7368-91-85 06:34:13Interface, External Ris In - 05/06/2019 6:34 AM CDTVentricular Rate 128 BPMAtrial Rate 89 BPMQRS Duration 94 msQ-T Interval 336 msQTC Calculation(Bazett) 490 msR [place] 151 degreesT [place] -88 degreesAtrial fibrillationLeft posterior fascicular blockST & T wave abnormality, consider inferior ischemiaST & T wave abnormality, consider anterolateral ischemiaAbnormal ECGWhen compared with ECG of 05-MAY-2019 20:52,Atrial fibrillation PresentInverted T waves have replaced nonspecific T wave abnormality in Inferior leadsInverted T waves have replaced nonspecific T wave abnormality in Anterolateral leadsConfirmed by MD CHELA, INDRA Simon ([id number]) on 05/06/2019 6:34:11 [facility] HospitalCOM[facility] [id number] 06:25:00* Test Item Value Reference Range Interpretation [...] GFR IS NOT APPLICABLE FOR DIALYSIS PATIENTS. Roll Filler ID - ULYSSES MSpecimen moderately lfjwvgwTNVSLVQRO5207-90-81 06:24:00* Test Item Value Reference Range Interpretation Comments MAGNESIUM (BEAKER) (test code = 627) 1.9 mg/dL 1.6-2.6 Roll Filler ID - ULYSSES MBASIC METABOLIC [id number] 21:58:00* Test Item Value Reference Range Interpretation [...] GFR IS NOT APPLICABLE FOR DIALYSIS PATIENTS. Roll Filler ID - BSSpecimen moderately ictericTroponin [id number] 21:56:00* Test Item Value Reference Range Interpretation Comments Troponin I (test code = 90204-4) <0.01 0-0.03 PHILLIP (test code = PHILLIP) [...] failure, acidosis, acute neurological disease, and persistent tachyarrhythmia.Roll Filler ID - BS Lab Interpretation (test code = 07527-2) Normal [facility] CenterTROP[facility]IN [id number] 21:56:00* Test Item Value Reference Range Interpretation [...] acidosis, acute neurological disease, and per sistent tachyarrhythmia.Roll Filler ID - [id number] 21:49:00* Test Item Value Reference Range Interpretation Comments MAGNESIUM (BEAKER) (test code = 627) 1.8 mg/dL 1.6-2.6 Specimen slightly hemolyzed Roll Filler ID - BSCBC W/PLT COUNT & AUTO AHMQVEMLMYTR6261-72-00 21:32:00* Test Item Value Reference Range Interpretation [...] 2801) 1 % 0-1 Hepatitis B surface sescdoz1751-18-18 17:35:00* Test Item Value Reference Range Interpretation Comments HBsAg Screen (test code = 5195-3) Nonreactive Nonreactive PHILLIP (test code = PHILLIP) Roll Filler ID - BS Lab Interpretation (test code = 52850-9) Normal [facility] HospitalHEPATITIS B SURFACE [id number] 17:35:00* Test Item Value Reference Range Interpretation Comments HEPATITIS B SURFACE ANTIGEN (2) (BEAKER) (test code = 2585) Nonreactive Nonreactive Roll Filler ID - BSOccult blood, ulrth6488-03-44 14:45:00* Test Item Value Reference Range Interpretation Comments Occult blood (test code = 2335-8) Negative Negative Lab Interpretation (test code = 25903-3) Normal [facility] HospitalOCCULT BLOOD, [id number] 14:45:00* Test Item Value Reference Range Interpretation Comments FECAL OCCULT BLOOD (BEAKER) (test code = 618) Negative Negative Buivdqnz5490-93-49 10:41:00* Test Item Value Reference Range Interpretation Comments Ferritin (test code = 2276-4) 1081 ng/mL 5-275 H PHILLIP (test code = PHILLIP) Roll Filler ID - AAHAMID Lab Interpretation (test code = 67659-8) Abnormal [facility] HospitalFERRITIN2020-03-09 10:41:00* Test Item Value Reference Range Interpretation Comments FERRITIN (BEAKER) (test code = 361) 1081 ng/mL 5-275 H Roll Filler ID - AAHAMIDDirect AHG (LUMA)/Direct Mdncps3593-81-30 10:38:00* Test Item Value Reference Range Interpretation Comments Direct AHG-IGG (test code = 1006-6) NEGATIVE Direct AHG-C3B, C3D (test code = 1003-3) NEGATVIE [facility] HospitalABORH, [id number] 10:28:00* Test Item Value Reference Range Interpretation Comments ABO Grouping (test code = 2588) B Rh Factor (test code = 2589) POS [facility] HospitalCOMPREHENSIVE METABOLIC [id number] 10:25:00* Test Item Value Reference Range Interpretation [...] GFR IS NOT APPLICABLE FOR DIALYSIS PATIENTS. Roll Filler ID - ROZINA LSpecimen moderately ictericIron, TIBC, % sat. (without ferritin)2019-05-05 10:21:00* Test Item Value Reference Range Interpretation Comments Iron (test code = 2498-4) 88.0 ug/dL 40-160 TIBC (test code = 2500-7) 130 ug/dL 250-450 L Iron % Saturation (test code = 2502-3) 68 % 20-55 H PHILLIP (test code = PHILLIP) Roll Filler ID - ROZINA L Lab Interpretation (test code = 94786-7) Abnormal [facility] CenterIRON, TIBC, % SAT. (WITHOUT FERRITIN)2019-05-05 10:21:00* Test Item Value Reference Range Interpretation Comments IRON (BEAKER) (test code = 547) 88.0 ug/dL 40.0-160.0 TOTAL IRON BINDING CAPACITY (BEAKER) (test code = 769) 130 ug/dL 250-450 L IRON % SATURATION (2) (BEAKER) (test code = 2590) 68 % 20-5 5 H Roll Filler ID - ROZINA LBILIRUBIN, [id number] 10:20:00* Test Item Value Reference Range Interpretation Comments BILIRUBIN DIRECT (BEAKER) (test code = 706) 3.0 mg/dL 0.1-0.5 H Roll Filler ID - ROZINA LCBC W/PLT COUNT & AUTO [id number] 10:08:00* Test Item Value Reference Range Interpretation [...] code = 2801) 1 % 0-1 Reticulocyte [id number] 10:04:00* Test Item Value Reference Range Interpretation Comments % Retic (test code = 21614-1) 2.3 % 0.5-1.8 H PHILLIP (test code = PHILLIP) Roll Filler ID - 6000 Lab Interpretation (test code = 79711-8) Abnormal [facility] CenterRETICULOCYTE [id number] 10:04:00* Test Item Value Reference Range Interpretation Comments RETICULOCYTE COUNT PCT (BEAKER) (test code = 575) 2.3 % 0.5- 1.8 H Roll Filler ID - 6000Lactic acid, zljwfj6525-02-76 00:50:00* Test Item Value Reference Range Interpretation Comments Lactate, Venous (test code = 2872) 2.6 mmol/L 0.5-2.2 H PHILLIP (test code = PHILLIP) Roll Filler ID - PIAYA LSpecimen slightly icteri c Lab Interpretation (test code = 29508-8) Abnormal [facility] HospitalLACTIC ACID, [id number] 00:50:00* Test Item Value Reference Range Interpretation Comments LACTATE BLOOD VENOUS (2) (BEAKER) (test code = 2872) 2.6 mmol/L 0 .5-2.2 H Roll Filler ID - PIAYA LSpecimen slightly ictericStrep pneumoniae wguhflh9513-96-64 21:50:00* Test Item Value Reference Range Interpretation Comments Strep pneumoniae Antigen (test code = 70292-1) Presump tive negative for pneumococcal pneumonia - [...] the test. Lab Interpretation (test code = 10876-8) Normal [facility] HospitalTREP PNEUMONIAE [id number] 21:50:00* Test Item Value Reference Range Interpretation [...] detection limit of the test. Legionella antigen, [id number] 21:49:00* Test Item Value Reference Range Interpretation Comments Legionella Urine Antigen (test code = 56895-6) Negative - see comme nt Negative for L. pneumophila serogroup 1 antigen, suggesting no recent or current infection with this serogroup. Legionellosis cannot be ruled out since other serogroups and species may cause disease. [facility] HospitalLEGIONELLA ANTIGEN, [id number] 21:49:00* Test Item Value Reference Range Interpretation [...] Ab Scrn (test code = 890-4) NEGATIVE [facility] HospitalPROCALCITONIN2020-03-08 20:32:00* Test Item Value Reference Range Interpretation Comments PROCALCITONIN ([facility]) (test code = 3036) 14.51 ng/mL <0.05 HH SEPSIS RISK (ng/mL)Low: 0.05-0.50Intermediate: 0.51-2.00High: > =2.01Urinalysis w/Microscopic + Reflex to Oglbiwt5792-02-71 20:25:00* Test Item Value Reference Range Interpretation Comments Color, UA (test code = 5778-6) Yellow Clarity, UA (test code = 5767-9) Hazy Specific [place], UA (test code = 5811-5) 1.011 1.001-1.035 pH, UA (test code = 5803-2) 5.5 5.0-8.0 Protein, UA (test code = 24015-1) 100 mg/dL Negative A Glucose, UA (test code = 365) 100 mg/dL Negative A Ketones, UA (test code = 2514-8) Negative Negative Bilirubin, UA (test code = 54739-0) Negative Negative Blood, UA (test code = 68232-5) Negative Negative Nitrite, UA (test code = 5802-4) Negative Negative Leukocytes, UA (test code = 5799-2) Negative Negative Urobilinogen, UA (test code = 32525-6) 0.2 mg/dL 0.2-1 RBC, UA (test code = 69320-2) 7 /HPF WBC, UA (test code = 5821-4) 12 /HPF Bacteria, UA (test code = 65196-5) Occasional Mucus (test code = 8247-9) Rare Squam Epithel, UA (test code = 24165-9) 18 /HPF Hyaline Casts, UA (test code = 99278-1) 78 /LPF Casts (test code = 9842-6) 70 /LPF Crystals, Urine (test code = 80532-7) Occasional Yeast (test code = 93309-8) Moderate Specimen Source (test code = 2795) PHILLIP (test code = PHILLIP) Roll Filler ID - [auto]Roll Filler ID - tech Lab Interpretation (test code = 58491-0) Abnormal [facility] CenterURINALYSIS W/ REFLEX URINE [id number] 20:25:00* Test Item Value Reference Range Interpretation [...] 1585) Moderate SOURCE(BEAKER) (test code = 2795) Roll Filler ID - [auto]Roll Filler ID - techPT/kUBE3035-42-09 20:11:00* Test Item Value Reference Range Interpretation Comments Protime (test code = 5902-2) 18.9 11.9- 14.2 seconds H INR (test code = 6301-6) 1.6 <=5.9 PTT (test code = 58786-6) 40.7 22.5- 36.0 seconds H PHILLIP (test code = PHILLIP) Effective 07/24/2018: PT Refe rence Range ChangeNew: 11.9- 14.2 Previous: 11.7-14.7 RECOMMENDED COUMADIN/WARFARIN INR THERAPY RANGESSTANDARD DOSE: 2.0-3.0 Includes: PROPHYLAXIS for venous thrombosis, sys temic embolization; TREATMENT for venous thrombosis and/or pulmonary embolus.HIGH RISK: Target INR is 2.5-3.5 for patients wiht mechanical heart valves. Lab Interpretation (test code = 38131-7) Abnormal [facility] CenterPT/[id number] 20:11:00* Test Item Value Reference Range Interpretation [...] Range Interpretation Comments BNP (test code = 73480-7) 612 pg/mL 0-100 H PHILLIP (test code = PHILLIP) Roll Filler ID - DB Lab Interpretation (test code = 85025-3) Abnormal [facility] HospitalRapid Influenza A&B Euregi3468-72-83 20:00:00* Test Item Value Reference Range Interpretation Comments Rapid Influenza A Antigen (test code = 08040-6) Negative Negative, Inconclusive Rapid influenza B Antigen (test code = 07354-0) Negative Negative, Inconclusive Lab Interpretation (test code = 59449-0) Normal [facility] HospitalB-TYPE NATRIURETIC FACTOR (BNP)2019-05-04 20:00:00 * Test Item Value Reference Range Interpretation Comments B-TYPE NATRIURETIC PEPTIDE (BEAKER) (test code = 700) 612 pg/mL 0-100 H Roll Filler ID - DBTROPONIN C0859-74-03 20:00:00* Test Item Value Reference Range Interpretation [...] acidosis, acute neurological disease, and per sistent tachyarrhythmia.Roll Filler ID - DBRAPID INFLUENZA A&B GPVIIS8981-48-60 20:00:00* Test Item Value Reference Range Interpretation Comments RAPID INFLUENZA A AG (BEAKER) (test code = 1622) Negative Negative, Inconclusive RAPID INFLUENZA B AG (BEAKER) (test code = 1623) Negative Negative, Inconclusive [id number] 19:54:00* Test Item Value Reference Range Interpretation Comments PHOSPHORUS (BEAKER) (test code = 604) 2.9 mg/dL 2.3-4.7 Roll Filler ID - AJJSVLKQYFX5765-32-87 19:54:00* Test Item Value Reference Range Interpretation Comments MAGNESIUM (BEAKER) (test code = 627) 2.0 mg/dL 1.6-2.6 Roll Filler ID - DBCOMPREHENSIVE METABOLIC AFOWL8074-54-70 19:54:00* Test Item Value Reference Range Interpretation [...] GFR IS NOT APPLICABLE FOR DIALYSIS PATIENTS. Roll Filler ID - DBSpecimen slightly ictericCBC W/PLT COUNT [...] = 2801) 1 % 0-1 LACTIC ACID, [id number] 19:48:00* Test Item Value Reference Range Interpretation Comments LACTATE BLOOD VENOUS (2) (BEAKER) (test code = 2872) 2.7 mmol/L 0 .5-2.2 H Specimen slightly hemolyzed Roll Filler ID - DBSpecimen slightly ictericCRITICAL [id number] 18:47:Juanpablo Arenas MD 05/04/2019 9:12 PMCritical CarePerformed [...] condition and r eview of old charts. [facility] HospitalRAD, CHEST, 1 VIEW, NON DEPT 2019-05-04 [...] Haines Verified Date/Time: 05/04/2019 18:08:08 Reading Location: [facility] C0[facility] Transitional Reading Room chest 1 view portable / [id number] 18:08:00Interface, External Ris In - 05/04/2019 6:10 PM CDTFINAL REPORT EXAM: Chest one view COMPARISON: December 22, 2018 Clinical history: Weakness FINDINGS: There is persistent cardiomegaly. There is interval improvement in pulmonary edema. The right internal jugular chest tunneled dialysis catheter appears unchanged in position. The regional osseous structures are unremarkable Signed: Sadiq Hainesort Verified Date/Time: 05/04/2019 18:08:08 Reading Location: [facility] C0[facility] Transitional Reading Room [facility]BA[facility] METABOLIC [id number] 11:09:00* Test Item Value Reference Range Interpretation [...] GFR IS NOT APPLICABLE FOR DIALYSIS PATIENTS. Roll Filler ID - LMSpecimen slightly ictericHEPATIC FUNCTION [id number] 11:04:00* Test Item Value Reference Range Interpretation [...] (test code = 347) 12 U/L 6-55 Roll Filler ID - LMSpecimen slightly ictericPROTHROMBIN TIME/[id number] 10:47:00 * Test Item Value Reference Range [...] mechanical heart valves.CBC W/PLT COUNT & AUTO [id number] 10:40:00* Test Item Value Reference Range Interpretation [...] = 2801) 0 % 0-1 BASIC METABOLIC [id number] 11:22:00* Test Item Value Reference Range Interpretation [...] GFR IS NOT APPLICABLE FOR DIALYSIS PATIENTS. Roll Filler ID - NTPSpecimen slightly ictericHEPATIC FUNCTION [id number] 11:09:00* Test Item Value Reference Range Interpretation [...] (test code = 347) 16 U/L 6-55 Roll Filler ID - NTPSpecimen slightly ictericCBC W/PLT COUNT [...] = 2801) 0 % 0-1 No clotPROTHROMBIN TIME/[id number] 11:03:00* Test Item Value Reference Range Interpretation [...] patie nts wiht mechanical heart valves.COMPREHENSIVE METABOLIC PCSEB5089-70-63 12:23:00* Test Item Value Reference Range Interpretation [...] APPLICABLE FOR DIALYSIS PATIENTS. Specimen slightly ictericBILIRUBIN, [id number] 12:18:00* Test Item Value Reference Range Interpretation Comments BILIRUBIN DIRECT (BEAKER) (test code = 706) 2.4 mg/dL 0.1-0.5 H CBC W/PLT COUNT & AUTO ZOYUZIPUAQHD7724-27-85 12:16:00* Test Item Value Reference Range Interpretation [...] code = 2801) 1 % 0-1 PROTHROMBIN TIME/[id number] 12:09:00* Test Item Value Reference Range Interpretation [...] patie nts wiht mechanical heart valves.HLA TYPING [id number] 21:42:00* Test Item Value Reference Range Interpretation [...] and its performance characteristics determined by the [facility]. It has not been cleared or [...] to perform high complexity clinical laboratory testing. [facility] HospitalHLA TYPING [id number] 21:42:00* Test Item Value Reference Range Interpretation [...] and its performance characteristics determined by the [facility]. It has not been cleared or [...] to perform high complexity clinical laboratory testing. [facility] HospitalCOMPREHENSIVE METABOLIC [id number] 12:19:00* Test Item Value Reference Range Interpretation [...] APPLICABLE FOR DIALYSIS PATIENTS. Specimen moderately ictericBILIRUBIN, [id number] 12:18:00* Test Item Value Reference Range Interpretation Comments BILIRUBIN DIRECT (BEAKER) (test code = 706) 4.1 mg/dL 0.1-0.5 H U/S, PELVIS, WITH [id number] 11:35:00Reason for Exam:->esrd/kidney transplant evaluationFINAL REPORT Pelvic [...] Verified Date/Time: 02/03/2019 11:35:01 Reading Location: [address] Radiology Reading Room pelvis with zvsiftx8166-00-75 11:35:00Interface, External Ris In - 02/03/2019 11:37 [...] Date/Time: 02/03/2019 11:35:01 Reading Locati on: [address] Radiology Reading Room [facility] HospitalPROTHROMBIN TIME/[id number] 11:12:00* Test Item Value Reference Range Interpretation [...] mechanical heart valves.CBC W/PLT COUNT & AUTO LEZSNIOQWISW4823-12-22 11:10:00* Test Item Value Reference Range Interpretation [...] 2801) 1 % 0-1 AB SPECIFICITY CLASS [id number] 09:48:00* Test Item Value Reference Range Interpretation Comments AB Specificity Class I (test code = 3457) NO CLASS I A NTIBODY DETECTED WITH MFIs > 4000 PHILLIP (test code = PHILLIP) Disclaimer: This test was de veloped and its performance characteristics determined by the [facility]. It has not been cleared or [...] to perform high complexity clinical laboratory testing. [facility] [place] PRA CLASS I WITH REFLEX TO ANTIBODY ELYKLXSSSLC5696-27-50 10:06:00* Test Item Value Reference Range Interpretation Comments Flow Class I Percent Positive (test code = 3229) 20 PHILLIP (test code = PHILLIP) Disclaimer: This test was de veloped and its performance characteristics determined by the [facility]. It has not been cleared or [...] to perform high complexity clinical laboratory testing. [facility] [place] PRA CLASS II WITH REFLEX TO ANTIBODY [id number] 10:06:00* Test Item Value Reference Range Interpretation Comments Flow Class II Percent Positive (test code = 3231) 0 PHILLIP (test code = PHILLIP) Disclaimer: This test was de veloped and its performance characteristics determined by the [facility]. It has not been cleared or [...] to perform high complexity clinical laboratory testing. [facility] HospitalMISCELLANEOUS LAB [id number] 07:41:00* Test Item Value Reference Range Interpretation Comments SCAN RESULT (test code = 6659377) Jzcjrpmquvz8553-72-18 19:31:00* Test Item Value Reference Range Interpretation Comments Haptoglobin (test code = 4542-7) 14 mg/dL 14-258 Lab Interpretation (test code = 52561-0) Normal [facility] HospitalHAPTOGLOBIN2019-11-23 19:31:00* Test Item Value Reference Range [...] % 20-5 5 H Vitamin B12 and Creeyp0173-48-60 19:16:00* Test Item Value Reference Range Interpretation Comments Vitamin B12 (test code = 2132-9) 1988 pg/mL 213-816 H Folate (test code = 2284-8) 17.8 ng/mL >=7.0 Lab Interpretation (test code = 48221-3) Abnormal [facility] HospitalVITAMIN B12 AND [id number] 19:16:00* Test Item Value Reference Range Interpretation Comments VITAMIN B12 (BEAKER) (test code = 774) 1988 pg/mL 213-816 H FOLATE (BEAKER) (test code = 362) 17.8 ng/mL >=7.0 YRKJGWEH2014-90-70 19:04:00* Test Item Value Reference Range Interpretation Comments FERRITIN (BEAKER) (test code = 361) 1523 ng/mL 5-275 H Lactate dehydrogenase (LDH)2019-01-18 18:27:00* Test Item Value Reference Range Interpretation Comments LDH (test code = 2532-0) 192 U/L 125-220 Lab Interpretation (test code = 72553-7) Normal [facility] HospitalLACTATE DEHYDROGENASE (LDH)2019-01-18 18:27:00* Test Item Value Reference Range Interpretation Comments LACTATE DEHYDROGENASE (BEAKER) (test code = 635) 192 U/L 125-2 20 Hemoglobin and fjswoeeqfo1851-77-84 11:26:00* Test Item Value Reference Range Interpretation Comments Hemoglobin (test code = 786-4) 7.5 13.7- 17.5 GM/DL L Hematocrit (test code = 4544-3) 23.0 % 40.1-51 L Lab Interpretation (test code = 72583-2) Abnormal [facility] HospitalHEMOGLOBIN AND GRWCXIFAOG6756-03-72 11:26:00* Test Item Value Reference Range Interpretation [...] K/CU MM L MPV (test code = 32806-9) 10.1 fL 9.4-12.4 nRBC (test code = 413) 0 0- 0 /100 WBC Lab Interpretation (test code = 51794-5) Abnormal [facility] HospitalCBC (HEMOGRAM ONLY)2019-01-18 03:09:00* Test Item Value [...] WBC 0 -0 Alpha fetoprotein (AFP), tumor cijmsi7537-20-63 17:58:00* Test Item Value Reference Range Interpretation Comments Alpha-Fetoprotein (test code = 1834-1) 2.7 ng/mL <10.0 Lab Interpretation (test code = 55818-8) Normal [facility] HospitalALPHA FETOPROTEIN (AFP), TUMOR [id number] 17:58:00* Test Item Value Reference Range Interpretation Comments ALPHA-FETOPROTEIN (BEAKER) (test code = 1094) 2.7 ng/mL <10.0 BASIC METABOLIC [id number] 17:09:00* Test Item Value Reference Range Interpretation [...] FOR DIALYSIS PATIENTS. Specimen moderately ictericHEPATIC FUNCTION [id number] 17:08:00* Test Item Value Reference Range Interpretation [...] Specimen moderately ictericCBC W/PLT COUNT & AUTO MIEWFYYHZPGJ3642-11-30 16:55:00* Test Item Value Reference Range Interpretation [...] code = 2801) 0 % 0-1 PROTHROMBIN TIME/[id number] 16:52:00* Test Item Value Reference Range Interpretation [...] patie nts wiht mechanical heart valves.BASIC METABOLIC [id number] 07:35:00* Test Item Value Reference Range Interpretation [...] NOT APPLICABLE FOR DIALYSIS PATIENTS. Specimen markedly dehqykkGZAXCTWKL5287-56-67 07:18:00* Test Item Value Reference Range Interpretation Comments MAGNESIUM (BEAKER) (test code = 627) 2.1 mg/dL 1.6-2.6 HEPATIC FUNCTION [id number] 07:18:00* Test Item Value Reference Range Interpretation [...] 347) 16 U/L 6-55 Specimen markedly ictericPROTHROMBIN TIME/VGC8667-21-97 06:41:00* Test Item Value Reference Range Interpretation [...] = 413) 0 /100 WBC 0 -0 IIAJMNJMD4320-23-94 05:08:00* Test Item Value Reference Range Interpretation Comments MAGNESIUM (BEAKER) (test code = 627) 2.0 mg/dL 1.6-2.6 HEPATIC FUNCTION [id number] 05:08:00* Test Item Value Reference Range Interpretation [...] 18 U/L 6-55 Specimen markedly ictericBASIC METABOLIC [id number] 05:08:00* Test Item Value Reference Range Interpretation [...] APPLICABLE FOR DIALYSIS PATIENTS. Specimen markedly ictericPROTHROMBIN TIME/QQD1196-07-80 04:55:00* Test Item Value Reference Range Interpretation [...] = 413) 0 /100 WBC 0 -0 Rtxtkfv5406-48-49 10:14:00* Test Item Value Reference Range Interpretation Comments Ethanol Lvl (test code = 5643-2) <10 <=10 mg/dL Lab Interpretation (test code = 55488-9) [facility] 10:14:00* Test Item Value Reference Range Interpretation Comments ETHANOL (BEAKER) (test code = 400) < mg/dL <=10 BASIC METABOLIC [id number] 05:20:00* Test Item Value Reference Range Interpretation [...] FOR DIALYSIS PATIENTS. Specimen markedly ictericHEPATIC FUNCTION [id number] 05:19:00* Test Item Value Reference Range Interpretation [...] Specimen markedly ictericCBC W/PLT COUNT & AUTO [id number] 05:05:00 * Test Item Value Reference Range [...] = 2801) 0 % 0-1 BASIC METABOLIC [id number] 22:30:00* Test Item Value Reference Range Interpretation [...] FOR DIALYSIS PATIENTS. Specimen markedly ictericHEPATIC FUNCTION [id number] 22:26:00* Test Item Value Reference Range Interpretation [...] = 347) 15 U/L 6-55 Specimen markedly ictericPT/NEHJ7595-07-96 22:22:00* Test Item Value Reference Range Interpretation [...] mechanical heart valves.CBC W/PLT COUNT & AUTO YCGISZZHLUPV9997-81-81 22:19:00* Test Item Value Reference Range Interpretation [...] code = 2801) 1 % 0-1 BLOOD JAMNNCZ3837-76-69 11:00:00* Test Item Value Reference Range Interpretation Comments CULTURE (BEAKER) (test code = 1095) No growth in 5 days HEPATIC FUNCTION [id number] 09:42:00* Test Item Value Reference Range Interpretation [...] 347) 17 U/L 6-55 Specimen markedly ictericBLOOD GDYJBXD6620-73-24 08:00:00* Test Item Value Reference Range Interpretation Comments CULTURE (BEAKER) (test code = 1095) No growth in 5 days BLOOD QSCRNJA2426-53-55 08:00:00* Test Item Value Reference Range Interpretation Comments CULTURE (BEAKER) (test code = 1095) No growth in 5 days BLOOD SJKITCN8670-49-93 08:00:00* Test Item Value Reference Range Interpretation Comments CULTURE (BEAKER) (test code = 1095) No growth in 5 days ZMLTQZCEXIV4474-92-31 05:03:00* Test Item Value Reference Range Interpretation Comments HAPTOGLOBIN (BEAKER) (test code = 366) < mg/dL 14-258 L BASIC METABOLIC [id number] 05:02:00* Test Item Value Reference Range Interpretation [...] NOT APPLICABLE FOR DIALYSIS PATIENTS. Specimen markedly rsvwwlhPOEWJELSMF8882-99-72 04:44:00* Test Item Value Reference Range Interpretation Comments PHOSPHORUS (BEAKER) (test code = 604) 4.4 mg/dL 2.3-4.7 SJBAXFXAP9609-96-25 04:44:00* Test Item Value Reference Range Interpretation Comments MAGNESIUM (BEAKER) (test code = 627) 2.1 mg/dL 1.6-2.6 CBC W/PLT COUNT & AUTO UAGGNNWFQYSD1573-48-06 04:40:00* Test Item Value Reference Range Interpretation [...] = 2801) 0 % 0-1 Vancomycin level, frdebe4813-02-93 04:39:00* Test Item Value Reference Range Interpretation Comments Vancomycin Rm (test code = 63152-4) 16.4 ug/mL PHILLIP (test code = PHILLIP) Reference Range: No Normals [facility] Center[facility]ANCOM[facility]CIN LEVEL, [id number] 04:39:00* Test Item Value Reference Range Interpretation Comments VANCOMYCIN RANDOM (BEAKER) (test code = 523) 16.4 ug/mL Reference Range: No NormalsLACTATE DEHYDROGENASE (LDH)2018-12-25 13:28:00* Test Item Value Reference Range Interpretation Comments LACTATE DEHYDROGENASE (BEAKER) (test code = 635) 242 U/L 125-2 20 H Venous doppler legs xpqqlbfoz7629-08-13 12:50:27Ejection FractionSLEH ECHO HEARTLAB MKCKESSON CPACSRight Impression1. [...] 12/25/2018 12:50 PM CDTPV LAB - L [facility] Extremities DVT Study Demographics Patient Name INDRA GALVAN ate of Study 12/24/2018 YAN CORDERO 8135 Age 38 Visit Number [id number] Ge nder Male Accession Number [id number] Date of 1980 Referring Audie Hoyt MD Room Number 7604 [facility] rosario Laser Set Up Operator Cb Maki RVS Interpreting Karen Blackwell [...] in the common femoral, profundafemoral, femoral, popliteal, vegetable tester ior tibial or peroneal veins.2. There is [...] cm/s ; Diameters are measured i kavitha [facility] W/PLT COUNT & AUTO FEYXTKGTXBLQ8661-66-08 04:43:00* Test Item Value Reference Range Interpretation [...] (test code = 2801) 0 % 0-1 KXCIKFMLXQ1319-34-11 04:26:00* Test Item Value Reference Range Interpretation Comments PHOSPHORUS (BEAKER) (test code = 604) 4.7 mg/dL 2.3-4.7 HZXUGCCUJ1492-31-01 04:26:00* Test Item Value Reference Range Interpretation Comments MAGNESIUM (BEAKER) (test code = 627) 2.3 mg/dL 1.6-2.6 HEPATIC FUNCTION [id number] 04:26:00* Test Item Value Reference Range Interpretation [...] 12 U/L 6-55 Specimen markedly ictericBASIC METABOLIC [id number] 04:26:00* Test Item Value Reference Range Interpretation [...] APPLICABLE FOR DIALYSIS PATIENTS. Specimen markedly ictericPROTHROMBIN TIME/SDS9273-97-04 04:22:00* Test Item Value Reference Range Interpretation [...] patie nts wiht mechanical heart valves.BASIC METABOLIC [id number] 04:45:00* Test Item Value Reference Range Interpretation [...] NOT APPLICABLE FOR DIALYSIS PATIENTS. Specimen markedly stiwntyJDYABZJGCG1354-65-34 04:39:00* Test Item Value Reference Range Interpretation Comments PHOSPHORUS (BEAKER) (test code = 604) 2.4 mg/dL 2.3-4.7 RYMIGJJKZ3916-60-50 04:39:00* Test Item Value Reference Range Interpretation Comments MAGNESIUM (BEAKER) (test code = 627) 2.0 mg/dL 1.6-2.6 CBC W/PLT COUNT & AUTO [id number] 03:32:00* Test Item Value Reference Range Interpretation [...] code = 2801) 0 % 0-1 HEMODIALYSIS HDOCJYEKM7827-94-90 23:25:30SFlakita granado RN 12/24/2018 12:23 AMVerified informed [...] Ag Latest Ref Range: Nonreactive Nonreactive [facility] (HEMOGRAM ONLY)2018-12-23 20:21:00* Test Item Value [...] /100 WBC 0 -0 HEPATITIS B SURFACE GHCXVTK1344-70-35 05:28:00* Test Item Value Reference Range Interpretation Comments HEPATITIS B SURFACE ANTIGEN (2) (BEAKER) (test code = 2585) Nonreactive Nonreactive BASIC METABOLIC [id number] 05:28:00* Test Item Value Reference Range Interpretation [...] NOT APPLICABLE FOR DIALYSIS PATIENTS. Specimen markedly apnxlhwKUZUJIZVQV4198-77-70 05:23:00* Test Item Value Reference Range Interpretation Comments PHOSPHORUS (BEAKER) (test code = 604) 3.4 mg/dL 2.3-4.7 UUUGUDIQX0959-28-20 05:23:00* Test Item Value Reference Range Interpretation Comments MAGNESIUM (BEAKER) (test code = 627) 2.1 mg/dL 1.6-2.6 VANCOMYCIN LEVEL, [id number] 05:15:00* Test Item Value Reference Range Interpretation Comments VANCOMYCIN RANDOM (BEAKER) (test code = 523) 36.4 ug/mL Reference Range: No NormalsCBC W/PLT COUNT & AUTO EAGHFTFSEYFQ8703-14-61 04:21:00* Test Item Value Reference Range Interpretation [...] % 0-1 CT, EXTREMITY, LOWER WITHOUT CONTRAST, [id number] 03:00:00FINAL REPORT CT right lower extremity. CLINICAL [...] t o represent laceration/contusion. Signed: Richie Griffin [facility] Verified Date/Time: 12/23/2018 03:00:15 lower extremity without [...] Signed: Richie Griffinjane Verified Date/Time: 12/23/2018 03:00:15 [facility], wkwgux3452-12-27 17:08:00* Test Item Value Reference Range Interpretation Comments Vancomycin Tr (test code = 4092-3) 40.3 ug/mL 10-20 HH Lab Interpretation (test code = 27617-9) Abnormal [facility]VANSA[facility] HOSPITALYCIN LEVEL, [id number] 17:08:00* Test Item Value Reference Range Interpretation [...] 0 -0 RAD, CHEST, 1 VIEW, NON [id number] 08:35:00Reason for exam:->eval pulmonary congestionShould this be [...] Moura Verified Date/Time: 12/22/2018 08:35:05 Reading Location: [address] Neuro Reading Room Electronically signed by: OMERO MOURA M.D. on 2018 08:35 AM BASIC METABOLIC [id number] 05:18:00* Test Item Value Reference Range Interpretation [...] NOT APPLICABLE FOR DIALYSIS PATIENTS. Specimen markedly xllwouwCYVTXAJTV4114-34-82 05:08:00* Test Item Value Reference Range Interpretation Comments MAGNESIUM (BEAKER) (test code = 627) 2.2 mg/dL 1.6-2.6 Specimen slightly hemolyzed IZZNKWKPWK3393-04-15 05:08:00* Test Item Value Reference Range Interpretation Comments PHOSPHORUS (BEAKER) (test code = 604) 3.9 mg/dL 2.3-4.7 Specimen slightly hemolyzed LACTIC ACID, TVYYGZ9584-52-07 04:40:00* Test Item Value Reference Range Interpretation Comments LACTATE BLOOD VENOUS (2) (BEAKER) (test code = 2872) 1.7 mmol/L 0 .5-2.2 Specimen slightly hemolyzed Specimen markedly rlklfmrBexyqmqnjz9704-14-66 04:18:00* Test Item Value Reference Range Interpretation Comments Fibrinogen (test code = 3255-7) 195 mg/dl 225-434 L Lab Interpretation (test code = 54542-2) Abnormal [facility] CenterTnlvjeTNOLSVJFAC9868-07-81 04:18:00* Test Item Value Reference Range Interpretation Comments FIBRINOGEN LEVEL (BEAKER) (test code = 658) 195 mg/dl 225-434 L CBC W/PLT COUNT & AUTO [id number] 04:10:00* Test Item Value Reference Range Interpretation [...] = 2801) 1 % 0-1 HEMOGLOBIN AND XUFIWAGYCP5884-17-56 08:38:00* Test Item Value Reference Range Interpretation Comments HEMOGLOBIN (BEAKER) (test code = 410) 7.0 GM/DL 13.7-17.5 L HEMATOCRIT (BEAKER) (test code = 411) 20.7 % 40.1-51.0 L POC-Lactic Acid, Srwdvo0047-94-21 04:05:00* Test Item Value Reference Range Interpretation Comments POC-Lactic Acid, Venous (test code = 2805) 1.6 mmol/L 0.9-1.7 TESTED AT [facility] [address] [facility] [address] Lab Interpretation (test code = 74320-2) Normal [facility] HospitalPOCT-LACTIC ACID, [id number] 04:05:00* Test Item Value Reference Range Interpretation Comments POC-LACTIC ACID, VENOUS (BEAKER) (test code = 2805) 1.6 mmol/L 0. 9-1.7 TESTED AT [facility] [address] [facility] [address] LVMMQOXKPMQWB7185-65-95 03:40:00* Test Item Value Reference Range Interpretation Comments PROCALCITONIN (BEAKER) (test code = 3036) 1.26 ng/mL <0.05 H SEPSIS RISK (ng/mL)Low: 0.05-0.50Intermediate: 0.51-2.00High: > =2.91Onmxbct6907-55-20 03:37:00* Test Item Value Reference Range Interpretation Comments Ammonia (test code = 55506-7) 65 18- 72 mol/L Lab Interpretation (test code = 00331-4) Normal [facility]2019-10-26 03:37:00* Test Item Value Reference Range Interpretation Comments AMMONIA (BEAKER) (test code = 348) 65 mol/L 18-72 PT/[id number] 02:35:00* Test Item Value Reference Range Interpretation [...] patie nts wiht mechanical heart valves.COMPREHENSIVE METABOLIC [id number] 02:26:00* Test Item Value Reference Range Interpretation [...] APPLICABLE FOR DIALYSIS PATIENTS. Specimen markedly ictericTROPONIN Q4279-35-77 02:24:00* Test Item Value Reference Range Interpretation [...] acidosis, acute neurological disease, and per sistent tachyarrhythmia.PKSAVXFID6634-86-04 02:21:00* Test Item Value Reference Range Interpretation Comments MAGNESIUM (BEAKER) (test code = 627) 2.1 mg/dL 1.6-2.6 Specimen slightly hemolyzed POCT-LACTIC ACID, [id number] 02:17:00* Test Item Value Reference Range Interpretation Comments POC-LACTIC ACID, VENOUS (BEAKER) (test code = 2805) 4.0 mmol/L 0. 9-1.7 H TESTED AT [facility] [address] [facility] [address] CBC W/PLT COUNT & AUTO UFYLLWOSUDAS6219-19-15 02:09:00* Test Item Value Reference Range Interpretation [...] % 0-1 RAD, CHEST, 1 VIEW, NON NFZJ7942-04-43 01:50:00Reason for exam:->chest painShould this be performed [...] 12/21/2018 01:50:02 , KNEE, COMPLETE (4 VIEWS), [id number] 01:49:00Reason for exam:->LACERATIONFINAL REPORT CLINICAL HISTORY: Trauma [...] Date/Time: 12/21/2018 01:49:02 knee complete 4 views olpwa1207-68-27 01:49:00Interface, External Ris In - 12/21/2018 1:51 [...] Katherine Reich MDReport Verified Date/Time: 12/21/2018 01:49:02 [facility] 2018-12-21 01:10:14HaVíctor webster MD 12/24/2018 [...] patient's condition and review of old charts. [facility] HospitalMISCELLANEOUS [facility] [id number] 07:44:00* Test Item Value Reference Range Interpretation Comments SCAN RESULT (test code = 8207459) Manual Wmiewguxynks4365-13-35 15:07:00* Test Item Value Reference Range Interpretation [...] 1+ few Lab Interpretation (test code = 71916-9) Abnormal [facility] W/PLT COUNT & AUTO YBHJBWCPMXQD5021-27-61 15:07:00* Test Item Value Reference Range Interpretation [...] (BEAKER) (test code = 966) 1+ few PVMBBZOBSX3880-60-75 14:49:00* Test Item Value Reference Range Interpretation Comments PHOSPHORUS (BEAKER) (test code = 604) 2.4 mg/dL 2.3-4.7 ANG, TUNNELED CATHETER OUBKQNIRW9758-01-04 10:01:00Reason for exam:->please place tunnelled hd cath for patient on dialysisReason for exam:->patient will need ffp personnel representative to procedure due to high inr on [...] the patient's medical record by the nurse. Hydraulic Elevator Constructor: Regis Ortega MD. Cpo: None. Approach: Right internal jugular vein Estimated [...] by blunt dissection. A 19 cm right Syrian Duraflow 2 catheter was brought through the [...] MDReport Verified Date/Time: 11/15/2018 10:01:43 Reading Location: [facility] P04 8 Angio Body Reading Room Tunneled Catheter Hhvsfxrji6316-90-62 10:01:00Interface, External Ris In - 11/15/2018 10:03 [...] the patient's medical record by the nurse. [facility] Roll Filler: Regis Ortega MD. Cpo: None. Approach: Right internal jugular vein Estimated [...] by blunt dissection. A 19 cm right Syrian Duraflow 2 catheter was brought through the [...] MDReport Verified Date/Time: 11/15/2018 10:01:43 Reading Location: [place] [address] Angio Body Reading Room [facility] HospitalHEPAT[facility] FUNCTION PANEL 2018-11-15 07:46:00* Test Item [...] 46 U/L 6-55 Specimen markedly ictericBASIC METABOLIC [id number] 07:46:00* Test Item Value Reference Range Interpretation [...] Specimen markedly ictericCBC W/PLT COUNT & AUTO QXDMSZTMZKPY0519-11-02 06:23:00 * Test Item Value Reference Range [...] = 2801) 2 % 0-1 H PROTHROMBIN TIME/IVN7732-25-15 06:20:00* Test Item Value Reference Range Interpretation [...] for patie nts wiht mechanical heart valves.BLOOD LKNJKKS0063-48-00 02:01:00* Test Item Value Reference Range Interpretation Comments CULTURE (BEAKER) (test code = 1095) No growth in 5 days BLOOD UCVPGJZ6072-71-06 02:01:00* Test Item Value Reference Range Interpretation Comments CULTURE (BEAKER) (test code = 1095) No growth in 5 days HEPATIC FUNCTION [id number] 08:23:00* Test Item Value Reference Range Interpretation [...] U/L 6-55 H Specimen markedly ictericBASIC METABOLIC [id number] 08:15:00* Test Item Value Reference Range Interpretation [...] APPLICABLE FOR DIALYSIS PATIENTS. Specimen markedly ictericPROTHROMBIN TIME/CVV0466-40-78 05:54:00* Test Item Value Reference Range Interpretation [...] mechanical heart valves.CBC W/PLT COUNT & AUTO EKNLIDVSTDDZ3688-57-38 05:45:00* Test Item Value Reference Range Interpretation [...] = 2801) 2 % 0-1 H Tissue Ozal9785-90-49 14:34:00* Test Item Value Reference Range Interpretation Comments Case Report (test code = 104) Surgical Pathology Repor t Case: [id number] Authorizing Provider: Devyn Lantigua MD Collected: 11/10/2018 1325 Ordering Location: [address] Received: 11/11/2018 0818 Service Pathologist: Be Arenas MD Specimens: A) - Polyp, Colon - Sigmoid, sigmoid polyp bx B) - Cecum, cecum ulcer bx ADDENDUM (test code = 3381) t6rcqGCoSCAydQYjWzXpKQSiSEKef4pbYEYtdGAuUfKoWyMnPvNsKuiuxFQpSGKiJmRpp4nvn683hAFf p9gjFVOqZwA9cOMfOGSezCVkF583j8xut4rssgAawXA5TBPtTQN7MVuxeoFslnV7LDjpzOVyUxH9FHse irIeJEgerrSnlfHkPfm8VCFwN548BCO8bQbay2etTW A9NOJkFPOiQnBrRr3bbONyT029RMKjNFHQAPUetWl5EHDfiyZajdXyjFIXc183Z425o7gcCFWlphSceL dMmccuq1asX392EOAmhZHenbClOkCpTHAwyGRhzVV3GSRdNH3cczgmZYmhPAjmDHRyamG7ESQhyLIeP6 RoWHXvRL7ddrdvLVH6YVyjUFPjROH8MmKoSABdp5Zd fgt3EvNmnm7kig75ESJ3w3VzgCesTSQ3XPS1InRlZe7tzICqVEItOZ6dUlDugFTkEFMzqz39cOsjDAul rnAwuE8uUpLzNWHhyWHzRXFrUY7ywXMvVBPgtK2mjgpaUYFaBgUvgmvpYGGbwRerisNhBj8woTzcCHJ4 PVmtP4umtR1mFwK4BNsoA2opwT0iPKp1FInkuXQ3YV YijM6cSF5ovywyg9ohPXukBSkqOZOqpfC7hxN5NAKxoRWrF1ElkC7tGDTaBS1tvgdsl8hpUKF5QWhgCH RyVYF1ZkQuFVBgw4Pkvws5VrRmh6TreKMcKDntQ45yr671JWRjhoUgT6ysqBDqjfjpqEGehicgODziyc P5KGGcZMLlBTmmLFMjJQQpToSxhAEdQqVdToAbpWru pYnaIWpzNiCwLNNwWIdmB2taWsOkSgYnLUXMoV97pb2zcCJipdAgGb7dKOpSVnDiARbUVkRqJLZsATSJ TNIcmSYzQm5bbJNvVZ9uORSpq8NuCGVwMBDjLKFaBYkapNy8KH6vnZFbyZ== DIAGNOSIS (test code = 3220) r8keuONrTPDxm0ifXRKiuJIzVbNwUbUdUbRqKsxoqKMtQSbtlvFdQDwvj5NgF4NlOsRrPViptrGxANYx TuvglkfbFFBuLCG5ajOiFVHwNOwgSBBaMQveVc2skJWdyPsuMqLgYKJpw2jastPOmfcoeJu4x8ixAQZz KoL5jXWiFFybZ9xuvrIlnBRrHMWoOSw9pT82GPJbkG 6oxISsWMiqyyXhMmW1TNkvIDEeCwJ9TSVyoOKkNIQxF3yzMXZcLByuSBIpCXmmjLPgNFX3dFhxe3U1jZ VobWBbmPdzXbTbDaYqJZQTf7UrBIp4sPucK6RiSPKxNpQ9ePEbEKXbWXvoWQLqQQBcshO7yJ05WShneg H2rTVbp4Nzi73bt787bH6hmHRuHGB6GWRlXQKsxRDu JPEqPCA2KANurMHpI0z2FcZxdMFpJ3U2BuKdvDZoN0K7IkUtkHPyV8I7KkFklBZhEMPpsLKfIf8hsSTm uBSqom3tge98CXJ0o5KmhAqkFYQ3ZRA9EaXtJl1eaIQnIIQzJG8cNeFneZKbUPRftp57nWkcFZvfydGn eW8hNqQfYFLxbNJjYIPnOY0icRZiJWDuvH1ursiwNZ AdFePcborrVJIggMtshiKuYo5efJowZXZ1RMsqZ4wvqJ9gJbJ4PEltX3tchH8cQKx1ONxilXC3HKBvvT 1cPI5qykokd5umTzIyTS1nmdjkq5qvOpZjVO0aswq9h4ffYiEiOO4syowli7avVdFrFMtzHLQczsyeFO Suf6MufipmCYLwi9AfY3GuaGuvZ59vxXaoC80qSCJh aEknuF2lnQkqiZ6fRyWyYgSvJVgvsWrifVFgmbgjNGrstsZnTQbbqkjmDUMzRZlfG9wgCoOcWLLnuJqw UIbmn4ZfBIVmAOQbMnWkQIKNJLCXXZNKA55LHSAzH24TF60hOS5HANNoPPRHIVpBEMOZI49DZkubREEq SFlQRVJQTEFTVElDIFBPTFlQLlxwYXJccGFyIFBBUl HzLmEBBGBCJMLJKE1GY7dmIg1SPCKCP6USN5XFTIREFDAHUxqaqXFcVN3ZXuTVJIXXAmsQJGCJPIdQII NPR5jFRTcLCLnBUGyeRMnUTOJIFAoQKfKZLmFsKhFSDB6JRhSLRGGGRXODSITJAhQVVlykLNSyBfXAVE VZVbFnCg7YZXfLFB1SFD5QFAPpTEPIW2RUVZLRVXmv Z9ZqPK9QJHOQZgQwW0ADE6yEQ23DTluaPBNpHo0hXG7NGDgWQU4AKIEaW8DyAS9KYH2XKRgASt6TSUJZ YzZEYeoVEQ1DDALSDhROPF7NEQ4ZCI6uaTOhSJMZGNZWIJEHDf3DGXuNVYBNUO7QUgAqZYCnenYWCD4S Gk9RZTPSJbEbAx5QHTYJKlFGHJ6XMcoNFlDxFFUGHI fPAsbdTOWTTS3CHA9yGD7jJg2KIO5PSkhdKXWrvLMsqCziuuMsTYtaw8McSOihXVYmJC1luWwhDQXuAB 8eFXChJ7bqeJ4wwqk9KfLuRBZnZmK5QOYydhO6Pbz8PPHiSTlhl0ejn6KwGYNxJOa0lNfuXkYmNEAjf7 ohssAnQtGpYOMiQBPrFGEtuZPsE798a9kkz8qinoBx kAN7YADiVWT9DWdidnIyskU5XUkqkGFeDbM3CPftxuImDPnlyqZtdpFkHkc2ILMuC970ICG6zVnsf5wk MSV5ZVTtJHFzLsMkXs7ckGEaC377BYTzUCZKTBCqiLq6JOMrmhVeqrEqhXYFx463E549t1ugOOMldpYv rOuRfrlyj8bkQ390EKPvvPCgkaPvIjLsYTBycKMqzP C6ZNYfSF6fsgxcRIgrARbkXJVunjB7ZRZqhPFiR9GyOEEwRL3fekveCEU2LPowKQHbLPB1YsXeBWYvb3 Munzp3NxQpcc0myz11RXS8m6BtvSjqTRY6OFJ2LeBnIc0piRGeZCHqUO6eQbNtsOFmGXUabm42dLwmRO kfNTY6NUWclaJdr6Tep0mcAmAyajUtU3vtU7PeDAIx BWUiLFErAlTbhlVdb9Mli7PllKFgnMg2h5wbTXHjYQVrsHmrs2xuTLU9ADRbvWYsA8lttT1nDXOdOC1y mjpxe5tdAJifZFeoPIDrzOT4bbP7AMTjmBXuO9LlfO5bBLNpCBdlQBLiaob4AoHmRo9guQKamUboLPbc YmtwYWdlXHBnbmNvbnRccGduZGVjXHBsYWluXHBsYW yfUSIrKOFsJmDwxVunlQLwEwEeQqJlsAdgoKzsSVivVpIwCPWdTPisL9tmIpSdPwDrKux5XCCepQRyEO SpCxj7ZZFilRHdYIAXvDgotN3lKJUunTpjiQ5bfCH2VJHqquYjaSXHtW3gIUEJlG7wEkD4XjJgOwF1SE QyNDlccGFyfX0= COMMENT (test code = 3359) k6zzjKRtPUVfuSQtGzSzPIGwRFVis8wdVKXhqYTlBaChYrMiMoTsZznjwQShBPNsItAdf5ucb087oRMy u7hoFQQkKvC6gSByNWMboWYmR341a1lys3ybpnXttYR1GHBuMDU2MCbumzJvarQ5QXrbeFVbAdS9CIaz efJmFUzmpqCrewFvMpy4MAPiY656VOT1mWejs6ewTG F0GMStRBBdIcUmUa0adJNcC990PNYpBFZUUIGqiPn9SAVokmXqtrTjfQXIz181F957m8obAYZxruXttE nImdxin7vfI955JTKszAJvmcTeJpWoRSZosWZcgQT9XFKcAZ4cmuktGmRiEP4aywaxQzGiKI2tbfe1Ik TiXZ3mbedjDyYiFEreIWFnmnwgUUJyx2KatqifVI9v I5Was3L6mE0kmFOiBSFubNWpWdMcHTAoth6ssDOlNZcqi0NeHHB7giL6sAYsbGAfSLBpVC83Fypom8Nf YrksSGE5BGLsqfAiy5Aif6uuNyAolgGqQ5njG8KcJUPbNANaGNEjAdFglrBku7Nqr0ChuLNynVy1u3ty IUNyNLFayFtwn4sqZFT3AQInZ3Y4pJBtw6mnYCqxFG WreFE1iuoiUAdwNIEmkzL4fhylORbrAPQdsCP5budmMKdhEBXeRgM3hwtgTBxxBAKvNMN4RLoid273OB W6BItqKnvkSBvaAWOjpdAgxpVysMnuPPBqRVNcNKpoIPFjKEasXRZbGARtZbFzvAuydOvrsA0kBnKxXi JiDFytNZ8fFTQfD1llvFErIVXnBTAzS7xbOkAjoD4d oVmyVSycfeCcKTCUAdKuKqmbYT1qcW0rnUwnhL5jaHBryDAtzQGfyDYxwGQhORMeqqWemv6jQLFsykVj dN8xxlCBJMGwGJ1atnJ3dcS4DMR0bMCtiRfytVkkeGDoxT0mzDudyUvggpV6ehEhNLHjd7KcoOb4FEYn p2JwJ4SyFQQhq1EtfRo6JZFDJOKocVdkWBCuHZBJBS PiA2G7WDAnp7k2fCYvUSHvX1QqkTQtVGByVFKvKRcnOR1bXTSuOHMfRO38DGToBKV1nNScw2Czg80zb1 KkJ7PiJHUvnrFbX1R5ImPAoBOfcQ7aIHLhvHStosLkOCBwdzPmKCUzODYpCWknSN1gKU1wepYll1voY3 ffRE8nFQfvnDOaq4MyND4sbPajpNMbQDKpIQAsA9Luu9CdtJlumYxmyJKiBWEbaz3= CPT Code(s) (test code = 3357) w8algVXfMDFrfSHrJlSnUEKsEKBdn0ulKLHrlJNpHcPiLsTxKlQoMjwweTYkPHWxOjMyi2uqd988qDSv e1shHEDgPcC2gMXeFNReiLCxU103q2sqc2kdsgPmrRP5ITFyWSA6YPlrrrKnkxP1WUvbqLXmZvP0DOhe kvGzOTsxcfWucuNjMcd9WDQtW027MOP2vDxbs9oyPC M8KYZaWLHvFiOaXv6rgPQlU897JQPnXFAGFMZpfVa5KYHvlvAyrtYojDRCr450I954m6auZEXhygPsbO xUzuira8dnY546ZBOpuIXjhtZoQmTiETVbpXUotYS5DNDlDH7okejrFsKqAD5aehnrQqPgDC1htkm6Oq GiXM5gipzpLpFaDPiuJJXvibbfDACqc0ZfncyzHS9j C6Ilb2U4zN6lpCQzIRBycDJzZwMrBUDzbd0qyNQlAQubp1ZjSDM8anP8xKBqvFEfWEBgQR07Mtufq3Kg VvqfOQB1EWXsnzXcw9Flw4haJwLibuGdZ8xeS9KeXGLmTZSdDEYlYjSlnzCwl5Hbo5JizBSdcRi3l7xj QPNsQJZdpSxwg3rdAYS0NJQeR8J8jSSdy5tiQQxeYC GevEK5pgavPNrdKQQkcsP3icwnQZnvTFMoyHD7dflkKGbuQQIpRqZ5puecLIuiGTWkVYS8IIdbx137WX X5MCclDyqkQCdrLPJbmpGmujAtjEjkVQOaUXRxJBjtIPUbCLxjXYCeLQQgTfZltDchmRktnW6kSlWhIe DjYSsjOP1aANNpD0bzhODbEIUiYJUvX3lkHqLxeQ8p pJxjRYaamkCpLFh4FgN7lBHsLHk5DqSpYCV6CMQ7TDe7RJZvba1= CLINICAL HISTORY (test code = 3356) q6yqaJTcICTtjIFaXoYcSGFgZZEvh6ygUAQqtJYxTlVwAcWoLaJkKohaeXKaDSMbRrWsf5jtk278vEUu g5bkTJVmLhI6pVIcIYEymKNkQ174d4stp1riwtMldOP9NMKcSSS4AIkqtnGhjsS0CYxhbNVkXyY3XDeh paGfLHekxlTujaHnBju2DWGqX816GUE2vAkbo6jiJF H6KHRoPGLyEeXmKr6ziAHrR771MNVyUNWJVQLxzAg8XNFlheNnvtMfzBASx101X240g2oyKCDxsyFgiI iKuiilv2pxK045WLBpoXPpzgHiDbXqSDHnyFYbdBX2KEGzNX3cczwhAsGsSO6mdklvAvSvMZ2nyyg2Gy PfBL3rbhtwXdViESblTKJtwglfUUMrw4MxcnckBV7v I9Esr1T1oH9qsBSeOSYbeROeEpPsDCPvpv0tiAZaIPoxw0GoHLF8zvK3jRJfdARuTYVoEQ35Qzdrg8Jc ZkklSSV6JBSkleNuu5Cnb9kuSjScarMqG5akN9LxKYWeZASbJBVoHrOdmxLhd0Ewc0VjuAWfzKo1z3yr NXZaQWAegEggs6eoOJE6MJJqS6X1cUKfn6mfCDozNJ BojPE0xortZVceLOBumoN5xfkmIQzePRXfiYR5gumyWTduXRDyLxF4vhiiFCyqQCAjZBE7QEicb754AK F4PFppCvprQVksRVExlqMadzKwrOkoEOFlXPZfDHxaPBZwORgoTHRmBAHkBnXnxNqhtJgykF1yIuFeEn KnFEfyIX6vUEPrR9zajUSdFLXeCOCnZ6knVpFwmG 9fxKfcBVtysrMkGKWmsI5iZUFosDbipuVsbTMmeP== SPECIMEN SOURCE (test code = 3377) c9jxtZXfNHYtpQMdGrBfCMPfACIca9lcZFOonHUiTtSiNvHqCyJeKacudPBbLSXmReEta5jeo284rDPb g0jnWLBdPvB7wCFrNVBrtVZxV271q1bgh2uqhzYufAG4CDSsCEU5UBjmxhTjrfY8RQqllRQoSsK7VVrx paCcFVlbvoQiinOwPjo3ULTxY577WPJ9bRofi3ayVH T0OTJhRPIbTmRlDo8wfCTtN990OSPwNLTAZJGwxXj2JHJvgxMzyrYfkRGZf935D459w5rjXFPdpzGkfZ zQjelrc4jgF931OOEzmFLlehLiDxSlNTPmqGApfUV6GAWmWM1aqsqjXhVpRK0vxpmjIaShWT2gbds8Pd AaTU9ykvwzKgSpEJafQTCyyxttWVOxb1SxykeiUP6c R7Myw5O5tE4eeXDoFRSdcEBzQlMaZYTkur6zgINtMKyuf5NiEFG9enZ4vKOslVXbOTNmPM18Gmjlj1Iy FiciWOJ6XHDdfiRkk8Oxq8joEfCcngCdC4gmD5YpMGFhGMTfIXOpRcMlqqGjt0Agk7KalSXjjGn6l7dj DGYdWZDiyQjwa5tpFSC2CIAbM8T2mCIrx8nzAKseMP PnwMO0extbYWciRKEuvaY8eqdpDPwzTRHlkVJ9pvkkUEfwIMYhMjK7zwqnPDriVBEzWLC4CVwse115AM W6SLexNltaLMoiFEDpgrHzzpBixPtyCTUaTKFlNMxcHBElOHzcUIPuEZRySyVitUtxqSbdmV8yQzNqWi UpHGtrRT5dETOhS8qefAUoXCYyRBJfK0qjDuJilY4b fSnvETvepnOrDLLqNYZjS45oyCBbcX6ucWCeIoermXR4WfOTSrURDMG6lSC9pYXczzXasW9cf1roMIQn cn0= GROSS DESCRIPTION (test code = 3366) b4xbnRGxONWfgVYgLrRqARLaRXNew9ceDGIswGIoDoJmBbKrKxXwJmajqBNyRNCbHqBah0tjw869vOOd j4voMOLgRtS1wCDyYTXspTYkK897p9wqo1fuerSxmIN5TSXvROA1UAzcbiVruuK3ZGrygQXqIhK4CYvr hfJiTZypueUarvSdPwy3FASlR792XMZ1gIejz1ckYZ H2SIBwYNDcKlSbJp9wxOAlF647DFExNOVIHZSxrPl0ASCralAzakHoiDGCe029Z884e6dgFSVsngLlzR qIyyfgc2duK708MZGzgHGowoCvTaQgEMOujUAulKF7AJSyTS6odtejWmJoHS8ranumBzDdEW7cizc8Cm OxQN9bnpkpWwCbAAwmKOQrqusmHZJpf9AtnbqeRT9t G4Vuy9B7kI8eoCNvJKFanTElMnUaVMNrpi8sxNDcTYoyt5TeRVB9vmD0wWMlzBRaVSSiAK46Xhhvc5Qp VvchNNN7SUGgkyWje9Lwh0uoZvVwykJsP1xsZ0BdACHmJYBcZZGqWhBdowCyr2Nbn1GtcBZpnZi5j1dp TTZuVBArsStxt6nbUFJ7JBYxW3M8bHQiu3oyDEcwXL YgtNX2kjekZQusBRCjzbQ6ieceZJokYCEexUU8qdleKZmgWARmEgB1zrsuHAvmQXLtFXT4WYejj375HR Z6NHbpGzadPZulOWWxahWpcfGtjIgnLCZjDFUoAOnbPJYbOSrtEVAiPGAaMeDulDocbTiryG5gBkVuAx PcLYdpSY3vFMYsN3lwqWIjYGDjAGNoI1rlSxNnoZ7h zGdaOUtcocNnQDPtyoKpXG3pMpLtPVg8ZGEumN5qTj3wbTUkpA6tjDKwARoaKVJ8fADvWKScVKApRCRu KF17J3FtebCgLCayRBDvBEPunA9qUY25qFUskoTcjmNaDfUknFcyDFNfm4bcce0fmEdbv6ddVwKmaiSl IZMgPoDmbGK2OO1oo12kkEL8xJJzkWThSmWdS17lda VsSLherXWwXEppNWM3Wk4rdWDoFVEnnxF4y1AhXYpsOFApBhtiLQFihKFrGROsroIqAq7aOeKrCOr1JC LhfK6qYd3mgRGxaZ6lzTYxVSswQBE7cFDqYBZiGKMjTAAaRD23R6OudgMpIJlsKNUdZBWkgM8iUD58jO FykeGftyPlDoYqI3FaXiUeokHxXp85iiCwmqQkT1Ze HMNddIPoYCPpVwNumGcgm3GrCRZuAJhvZE99bdCkJX9svW3uTZZdKL2lCfNtX85kPXwdbWJcQBTbDDYd oUJwwNC8RLDzgI9xtJ04lnJmowEQFM0fT7woIHauDEZezt7= MICROSCOPIC DESCRIPTION (test code = 3371) q3endFDrEYCoxZPkOyTaWJAkRVDkz1dtNJNmhGIaAqTgScOfHrJnDxhpcRGkUIKyEyDqo0tdg376nEBz d5keWRSgIvP8eITbJDDgwVIfL516b2rpb8ldtwKpaPI4IIMqYLH8EMpvbxDzoxZ8KYrvyYPfXqG9ESmz pqSmNRndliGbcwFlHxs8ZTBxR587CJO6kYlkp0nyHB W6ZPAkILXjXmVkEr6stVDnM734WUCiJCUWJWUrcYw0TDLyiuLffvZbxFMIw400N530x9ibZHCexwNjuE xDpxscn6jlU928JSYgfERjobDeFqLhHHAfqLJmcQH6DWUrLM8rhohrFoQgPD2edbvmNfZsKO1jtzm9Sd QvAU4widteWqZzJLjjBKIqlhaxPTYzp1FpyhmiRB7f Z1Tbs5X8kP6buIVoUATurHQuNoZiBXWjje0roOYgWXwmw3HhAJV3uoJ3dISmcZChWIUjPZ00Ppicx2An WeeoSDS2GZVkliIak5Kgt8qzLnWlupAcK0ccG7IrZEAaFNIlEMXeDfZnakHar2Mwj5UptLJdmFe4k9dx HCItIILbeNhls1heKAF7EYGkU9D2sZQfx0gmQZfoPW IhrDK6zpwgUNvtALCdepI7urhcIKrmVZIndHZ5fkdvJJwrXRTxUyH7tjrgZJzrLYQsWMI9KFoba881TD F1QLwtKvdjDAdyBBKvvqZrycYvuAgdGKRgZDGyRYzoBPQkTCqjGKCsASBdNgIgkJuszQhngW8xXlYdKk JkRXgqOA6dKHMqL1ghdGPpTPTmSRHzN4hhFjBvgY3rbFriJGnadsGnOMJvimFnyn6oNK2wBKHdyr8= SPECIAL STUDIES (test code = 3376) [file] SirClngO4eLwIpZgCfSYkxIKJ2 [facility] HospitalTISS[facility] [id number] 14:34:00Surgical Pathology Report Case: [id number] Authorizing Provider: Devyn Lantigua MD Collected: 11/10/2018 1325 Ordering Location: [address] Received: 11/11/2018 0818 Service Pathologist: Be [...] TO FOLLOW. Signing Pathologist Direct Phone Line: [phone] s igned by Be Arenas MD on [...] is no morphologic or immunophenotypic evidence of lymphoma.82026h6, 52991, 8834 4t8Yoxet polyps A. Sigmoid polyp biopsy. B. Cecum [...] HSV1, HSV2, CMV, CD20, CD3, CD5, CYCLIN Z5Kfvrnvb Slides Examined: In-house known positive controls were evaluated along with the test tissue. These control slides run a longside of the patients sample show appropriate staining. Internal positive and negative controls when available are evaluated Immunohistochemistry technical t esting was performed at [facility], Pathology Laboratory w here it was developed [...] to perform high complexity clinical lab oratory testing.[id number] 08:34:00* Test Item Value Reference Range Interpretation Comments PHOSPHORUS (BEAKER) (test code = 604) 2.3 mg/dL 2.3-4.7 HEMOGLOBIN AND XOKTHWYXJX8664-42-11 08:03:00* Test Item Value Reference Range Interpretation Comments HEMOGLOBIN (BEAKER) (test code = 410) 6.4 GM/DL 13.7-17.5 L HEMATOCRIT (BEAKER) (test code = 411) 19.1 % 40.1-51.0 L BASIC METABOLIC [id number] 06:42:00* Test Item Value Reference Range Interpretation [...] FOR DIALYSIS PATIENTS. Specimen markedly ictericHEPATIC FUNCTION [id number] 06:41:00* Test Item Value Reference Range Interpretation [...] Specimen markedly ictericCBC W/PLT COUNT & AUTO CKCPLYIGVOZH0583-30-49 06:36:00 * Test Item Value Reference Range [...] code = 2801) 1 % 0-1 PROTHROMBIN TIME/[id number] 06:29:00* Test Item Value Reference Range Interpretation [...] nts wiht mechanical heart valves.RAD, CHEST, 2 [id number] 23:58:00Reason for exam:->coughFINAL REPORT Chest, two views. [...] Sloan Verified Date/Time: 11/12/2018 23:58:30 Reading Location: [address] Consult Reading Room chest 2 roatt1118-08-04 23:58:00Interface, External Ris In - 11/13/2018 12:00 [...] Verified Date/Time: 11/12/2018 23:58:30 Readi ng Location: [facility] C013 Consult Reading Room [facility] HospitalHEPAT[facility] FUNCTION [id number] 04:58:00* Test Item Value Reference Range Interpretation [...] U/L 6-55 H Specimen markedly ictericBASIC METABOLIC [id number] 04:50:00* Test Item Value Reference Range Interpretation [...] Specimen markedly ictericCBC W/PLT COUNT & AUTO UDALQTUYFIPH7126-65-31 04:33:00 * Test Item Value Reference Range [...] code = 2801) 1 % 0-1 PROTHROMBIN TIME/[id number] 04:25:00* Test Item Value Reference Range Interpretation [...] patie nts wiht mechanical heart valves.Creatinine, random ksjvl4787-02-66 03:53:00* Test Item Value Reference Range Interpretation Comments Creatinine, Ur (test code = 2161-8) 225.8 mg/dL PHILLIP (test code = PIHLLIP) Reference Range: No Normals [facility] HospitalCREATININE, RANDOM [id number] 03:53:00* Test Item Value Reference Range Interpretation Comments CREATININE URINE (BEAKER) (test code = 375) 225.8 mg/dL Reference Range: No NormalsProtein, random bnrfy5767-86-41 03:50:00* Test Item Value Reference Range Interpretation Comments Protein, Urine (test code = 2888-6) 122 mg/dL 0-14 H Lab Interpretation (test code = 89889-8) Abnormal [facility] HospitalPROTEIN, RANDOM [id number] 03:50:00* Test Item Value Reference Range Interpretation Comments PROTEIN, URINE (BEAKER) (test code = 1569) 122 mg/dL 0-14 H CBC W/PLT COUNT & AUTO VMUMFVDVPNIQ7121-58-48 08:10:00* Test Item Value Reference Range Interpretation [...] U/L 6-55 H Specimen markedly ictericBASIC METABOLIC [id number] 06:17:00* Test Item Value Reference Range Interpretation [...] APPLICABLE FOR DIALYSIS PATIENTS. Specimen markedly ictericPROTHROMBIN TIME/JGS3454-05-60 05:07:00* Test Item Value Reference Range Interpretation [...] patie nts wiht mechanical heart valves.HEPATIC FUNCTION DAXBG9798-77-00 06:03:00* Test Item Value Reference Range Interpretation [...] U/L 6-55 H Specimen markedly ictericBASIC METABOLIC GNUGJ7065-14-27 05:52:00* Test Item Value Reference Range Interpretation [...] Specimen markedly ictericCBC W/PLT COUNT & AUTO CIAIDMMNHEBP5170-01-19 05:17:00 * Test Item Value Reference Range [...] code = 2801) 1 % 0-1 PROTHROMBIN TIME/[id number] 05:07:00* Test Item Value Reference Range Interpretation [...] for patie nts wiht mechanical heart valves.BLOOD HYUNMQW2819-55-23 02:01:00* Test Item Value Reference Range Interpretation Comments CULTURE (BEAKER) (test code = 1095) No growth in 5 days BLOOD ODTYDCX3425-91-91 02:01:00* Test Item Value Reference Range Interpretation Comments CULTURE (BEAKER) (test code = 1095) No growth in 5 days URINALYSIS W/ REFLEX URINE [id number] 00:30:00* Test Item Value Reference Range Interpretation [...] /LPF SOURCE(BEAKER) (test code = 2795) HEMODIALYSIS ZMFKMHRCH0269-76-67 15:25:00Melissa Lo RN 11/09/2018 4:53 PMProcedure fairly [...] 98.3 F (36.8 C) SpO2: 95% [facility] 2018-11-09 11:29:00* Test Item Value Reference Range Interpretation Comments PHOSPHORUS (BEAKER) (test code = 604) 2.3 mg/dL 2.3-4.7 HEPATIC FUNCTION [id number] 04:57:00* Test Item Value Reference Range Interpretation [...] Specimen markedly ictericCBC W/PLT COUNT & AUTO EMJTKHVWYRZL4819-71-74 04:42:00 * Test Item Value Reference Range [...] 2801) 2 % 0-1 H BASIC METABOLIC [id number] 04:41:00* Test Item Value Reference Range Interpretation [...] APPLICABLE FOR DIALYSIS PATIENTS. Specimen markedly ictericPROTHROMBIN TIME/ZEZ7965-17-24 04:34:00* Test Item Value Reference Range Interpretation [...] patie nts wiht mechanical heart valves.HEPATIC FUNCTION [id number] 17:22:00* Test Item Value Reference Range Interpretation [...] U/L 6-55 H Specimen markedly icteric; notified #[id number] of correctionCandida antigen with reflex to husuy5352-11-17 11:29:00* Test Item Value Reference Range Interpretation Comments Yari Antigen (test code = 03370-2) Positive [facility] HospitalCANDIDA ANTIGEN [id number] 11:29:00* Test Item Value Reference Range Interpretation Comments Yari Antigen Titer (test code = 9501-8) 1:2 [facility] HospitalCANDIDA ANTIGEN WITH REFLEX TO [id number] 11:29:00* Test Item Value Reference Range Interpretation Comments YARI ANTIGEN (BEAKER) (test code = 1782) Positive YARI ANTIGEN [id number] 11:29:00* Test Item Value Reference Range Interpretation Comments YARI ANTIGEN TITER (BEAKER) (test code = 737) :2 CT, CHEST, WITH HIGH RESOLUTION, INTERSTITAL LUNG [id number] 11:29:00 Reason for exam:->liver transplant evaluationFINAL REPORT [...] MDReport Verified Date/Time: 11/08/2018 11:29:31 Reading Location: [facility] C0X [facility] Consult Reading Room chest with high resolution/hdx6403-71-27 11:29:00 Interface, External Ris In - 11/08/2018 11:31 AM CDTFINAL REPORT PATIENT ID: [id number] of the chest, without contrast Clinical [...] Verified Da te/Time: 11/08/2018 11:29:31 Reading Location: [facility] C0X Ortho Consult Readi Room [facility] HospitalMR, ABDOMEN, [id number] 08:24:00FINAL REPORT MRI of the abdomen. CLINICAL [...] Verified Date/Time: 11/08/2018 08:24:53 Reading Location: [facility] Reading Room - [place] [address] E [id number] 07:36:00* Test Item Value Reference Range Interpretation Comments CULTURE (BEAKER) (test code = 1095) No growth BASIC METABOLIC [id number] 06:13:00* Test Item Value Reference Range Interpretation [...] NOT APPLICABLE FOR DIALYSIS PATIENTS. Specimen markedly chzuqwuJOXTTNDBGG1830-79-10 06:07:00* Test Item Value Reference Range Interpretation Comments PHOSPHORUS (BEAKER) (test code = 604) 2.8 mg/dL 2.3-4.7 TAJDMAVFK9387-22-34 06:07:00* Test Item Value Reference Range Interpretation Comments MAGNESIUM (BEAKER) (test code = 627) 2.2 mg/dL 1.6-2.6 PROTHROMBIN TIME/[id number] 05:21:00* Test Item Value Reference Range Interpretation [...] mechanical heart valves.CBC W/PLT COUNT & AUTO [id number] 05:03:00* Test Item Value Reference Range Interpretation [...] % 0-1 CBC W/PLT COUNT & AUTO IJXPNOGQBCOH2818-81-02 13:51:00* Test Item Value Reference Range Interpretation [...] WIT TOXIC GRANU LATIONS PRESENT BASIC METABOLIC [id number] 07:53:00* Test Item Value Reference Range Interpretation [...] FOR DIALYSIS PATIENTS. Specimen markedly ictericHEPATIC FUNCTION [id number] 07:53:00* Test Item Value Reference Range Interpretation [...] 80 U/L 6-55 H Specimen markedly ictericPROTHROMBIN TIME/[id number] 07:12:00* Test Item Value Reference Range Interpretation [...] mechanical heart valves.CBC W/PLT COUNT & AUTO KSFPCIZNGPJI1115-48-83 08:15:00* Test Item Value Reference Range Interpretation [...] U/L 6-55 H Specimen markedly ictericBASIC METABOLIC [id number] 04:58:00* Test Item Value Reference Range Interpretation [...] APPLICABLE FOR DIALYSIS PATIENTS. Specimen markedly ictericPROTHROMBIN TIME/[id number] 04:37:00* Test Item Value Reference Range Interpretation [...] for patie nts wiht mechanical heart valves.Urinalysis w/Ggbvzpgfagh1733-02-33 22:58:00* Test Item Value Reference Range Interpretation Comments Color, UA (test code = 5778-6) Dark Yellow Clarity, UA (test code = 5767-9) Clear Specific [place], UA (test code = 5811-5) 1.012 1.001-1.035 pH, UA (test code = 5803-2) 6.0 5.0-8.0 Protein, UA (test code = 49509-7) 20 mg/dL Negative A Glucose, UA (test code = 365) Negative Negative Ketones, UA (test code = 2514-8) Negative Negative Bilirubin, UA (test code = 29898-3) Positive Negative A Blood, UA (test code = 97895-1) Negative Negative Nitrite, UA (test code = 5802-4) Negative Negative Leukocytes, UA (test code = 5799-2) Negative Negative Urobilinogen, UA (test code = 55357-6) 3.0 mg/dL 0.2-1 H RBC, UA (test code = 68893-8) 0 /HPF WBC, UA (test code = 5821-4) 1 /HPF Bacteria, UA (test code = 54877-1) Occasional Mucus (test code = 8247-9) Rare Specimen Source (test code = 2795) Urine, Clean Catch Lab Interpretation (test code = 56630-8) [facility]normal [facility]/ SMLRJUEOAHY9496-51-30 22:58:00* Test Item Value Reference Range Interpretation [...] 2795) Urine, Clean Catch Hepatitis B surface zdgwpgki1805-15-75 20:23:00* Test Item Value Reference Range Interpretation Comments Hep B S Ab (test code = 81875-8) <8.0 <8.0 mIU/mL Lab Interpretation (test code = 20465-0) Normal [facility] HospitalHEPATITIS B SURFACE PGETHNFC5027-30-09 20:23:00* Test Item Value Reference Range Interpretation Comments HEPATITIS B SURFACE ANTIBODY (BEAKER) (test code = 647) < mIU/mL <8.0 Hepatitis B core antibody, lxduy7008-78-76 20:22:00* Test Item Value Reference Range Interpretation Comments Hep B Core Total Ab (test code = 11832-8) Nonreactive Nonreactive Lab Interpretation (test code = 07450-2) Normal [facility]HEPAT[facility] SURFACE XNKNORH3602-04-00 20:22:00* Test Item Value Reference Range Interpretation Comments HEPATITIS B SURFACE ANTIGEN (2) (BEAKER) (test code = 2585) Nonreactive Nonreactive HEPATITIS B CORE ANTIBODY, [id number] 20:22:00* Test Item Value Reference Range Interpretation Comments HEPATITIS B CORE TOTAL ANTIBODY (BEAKER) (test code = 497) N onreactive Nonreactive RAD, CHEST, 1 VIEW, NON [id number] 20:17:00Reason for exam:->pleuritic chest painShould this be [...] Date/Time: 11/05/2018 20:17:29 , NON-TUNNELED DIALYSIS CATH, XAJYFJVTG4101-76-35 19:49:00Reason for exam:->need dialysisFINAL REPORT PROCEDURE: Non-tunneled [...] site was prepared and draped using all tatitlek ents of maximal sterile barrier technique including [...] was applied.Catheter placed: Schon XLCathete r size (Syrian): 14Catheter length (cm): 15Catheter flush: Heparin (1000 [...] Verified Date/Fernando e: 11/05/2018 19:49:40 Reading Location: [place] [address] Angio Body Reading Room non- tunneled dialysis catheter tmkmiszry1079-02-92 19:49:00Interface, External Ris In - 11/05/2018 7:51 [...] time-out was performed prior to the procedure.Preparation (SD PS): The site was prepared and draped [...] ressing was applied.Catheter placed: Schon XLCatheter size (Syrian): 14Catheter length (cm): 15Catheter flush: Heparin (1000 [...] [facility] B1 P048 Angio Body Reading Room [facility] W/PLT COUNT & AUTO [id number] 10:46:00* Test Item Value Reference Range Interpretation [...] comment: User comments: Slide comments: BASIC METABOLIC [id number] 06:48:00* Test Item Value Reference Range Interpretation [...] FOR DIALYSIS PATIENTS. Specimen markedly ictericHEPATIC FUNCTION [id number] 06:48:00* Test Item Value Reference Range Interpretation [...] 347) 82 U/L 6-55 H Specimen markedly lefrtpjXSOLVHKZCW1226-63-24 06:44:00* Test Item Value Reference Range Interpretation Comments PHOSPHORUS (BEAKER) (test code = 604) 3.7 mg/dL 2.3-4.7 YEVEVXYMO9137-09-69 06:44:00* Test Item Value Reference Range Interpretation Comments MAGNESIUM (BEAKER) (test code = 627) 2.5 mg/dL 1.6-2.6 PT/[id number] 05:49:00* Test Item Value Reference Range Interpretation [...] for patie nts wiht mechanical heart valves.PROTHROMBIN TIME/MIZ8273-43-97 05:48:00* Test Item Value Reference Range Interpretation [...] wiht mechanical heart valves.URINALYSIS W/ REFLEX URINE LEXYBYD2987-31-57 20:41:00* Test Item Value Reference Range Interpretation [...] 1574) Rare SOURCE(BEAKER) (test code = 2795) [id number] 14:10:00* Test Item Value Reference Range Interpretation Comments AMMONIA (BEAKER) (test code = 348) 101 mol/L 18-72 H CBC W/PLT COUNT & AUTO PUNPWVECYHSL6151-95-62 10:57:00* Test Item Value Reference Range Interpretation [...] (BEAKER) (test code = 474) 1+ few SGHOFDUOO2753-39-42 10:35:00* Test Item Value Reference Range Interpretation Comments MAGNESIUM (BEAKER) (test code = 627) 2.4 mg/dL 1.6-2.6 HEPATIC FUNCTION [id number] 05:15:00* Test Item Value Reference Range Interpretation [...] U/L 6-55 H Specimen markedly ictericBASIC METABOLIC MPHMI3927-87-34 05:14:00* Test Item Value Reference Range Interpretation [...] APPLICABLE FOR DIALYSIS PATIENTS. Specimen markedly ictericPROTHROMBIN TIME/[id number] 04:51:00* Test Item Value Reference Range Interpretation [...] patie nts wiht mechanical heart valves.HEPATIC FUNCTION CFOVJ2022-30-50 06:30:00* Test Item Value Reference Range Interpretation [...] 52 U/L 6-55 Specimen markedly ictericBASIC METABOLIC QDVJN7598-34-06 06:30:00* Test Item Value Reference Range Interpretation [...] APPLICABLE FOR DIALYSIS PATIENTS. Specimen markedly ictericPROTHROMBIN TIME/XMP5090-46-10 05:42:00* Test Item Value Reference Range Interpretation [...] mechanical heart valves.CBC W/PLT COUNT & AUTO NIKNQZQNZYEX4818-10-16 05:10:00* Test Item Value Reference Range Interpretation [...] = 2801) 1 % 0-1 BASIC METABOLIC [id number] 07:07:00* Test Item Value Reference Range Interpretation [...] FOR DIALYSIS PATIENTS. Specimen markedly ictericHEPATIC FUNCTION KQVJY8822-40-23 07:06:00* Test Item Value Reference Range Interpretation [...] 347) 49 U/L 6-55 Specimen markedly ictericPROTHROMBIN TIME/TPX0919-09-77 06:21:00* Test Item Value Reference Range Interpretation [...] mechanical heart valves.CBC W/PLT COUNT & AUTO EYQRVNPDQKUN2865-25-22 06:04:00* Test Item Value Reference Range Interpretation [...] code = 2801) 1 % 0-1 BLOOD NTXHUSI2460-89-24 20:01:00* Test Item Value Reference Range Interpretation Comments CULTURE (BEAKER) (test code = 1095) No growth in 5 days BLOOD VCILLMU8118-45-76 20:01:00* Test Item Value Reference Range Interpretation Comments CULTURE (BEAKER) (test code = 1095) No growth in 5 days BASIC METABOLIC [id number] 08:05:00* Test Item Value Reference Range Interpretation [...] FOR DIALYSIS PATIENTS. Specimen markedly ictericHEPATIC FUNCTION [id number] 08:04:00* Test Item Value Reference Range Interpretation [...] 347) 37 U/L 6-55 Specimen markedly ictericPROTHROMBIN TIME/[id number] 06:14:00* Test Item Value Reference Range Interpretation [...] mechanical heart valves.CBC W/PLT COUNT & AUTO LFTLARTUCHIH5491-51-66 06:13:00* Test Item Value Reference Range Interpretation [...] = 2801) 1 % 0-1 HEPATIC FUNCTION [id number] 06:59:00* Test Item Value Reference Range Interpretation [...] 35 U/L 6-55 Specimen markedly ictericBASIC METABOLIC DJIIJ4444-66-05 06:56:00* Test Item Value Reference Range Interpretation [...] Specimen markedly ictericCBC W/PLT COUNT & AUTO JKXVBQSCMBQV6719-73-18 05:54:00 * Test Item Value Reference Range [...] code = 2801) 1 % 0-1 PROTHROMBIN TIME/[id number] 05:46:00* Test Item Value Reference Range Interpretation [...] patie nts wiht mechanical heart valves.Sodium, random kmcxn5823-46-19 23:21:00* Test Item Value Reference Range Interpretation Comments Sodium Urine (test code = 2955-3) 34 meq/L PHILLIP (test code = PHILLIP) Reference Range: No Normals [facility] [id number] 23:21:00* Test Item Value Reference Range Interpretation Comments SODIUM URINE (BEAKER) (test code = 243) 34 meq/L Reference Range: No NormalsBODY FLUID CULTURE + GRAM [id number] 10:20:00* Test Item Value Reference Range Interpretation Comments CULTURE (BEAKER) (test code = 1095) No growth GRAM STAIN RESULT (BEAKER) (test code = 1123) <1+ White blood cells seen GRAM STAIN RESULT (BEAKER) (test code = 20529) No organisms seen HEPATIC FUNCTION WTIBY2436-09-48 05:14:00* Test Item Value Reference Range Interpretation [...] 33 U/L 6-55 Specimen markedly ictericBASIC METABOLIC [id number] 05:13:00* Test Item Value Reference Range Interpretation [...] Specimen markedly ictericCBC W/PLT COUNT & AUTO IHLOQVTMJRCM5129-93-28 04:24:00 * Test Item Value Reference Range [...] = 2801) 2 % 0-1 H PROTHROMBIN TIME/QVQ4467-33-13 04:21:00* Test Item Value Reference Range Interpretation [...] patie nts wiht mechanical heart valves.MISCELLANEOUS LAB [id number] 11:32:00* Test Item Value Reference Range Interpretation Comments SCAN RESULT (test code = 9746263) CBC W/PLT COUNT & AUTO UCMTUYFPHWEF0850-09-22 09:11:00* Test Item Value Reference Range Interpretation [...] comment: User comments: Slide comments: BASIC METABOLIC [id number] 05:26:00* Test Item Value Reference Range Interpretation [...] FOR DIALYSIS PATIENTS. Specimen markedly ictericHEPATIC FUNCTION CEEPT8824-90-98 05:26:00* Test Item Value Reference Range Interpretation [...] 347) 32 U/L 6-55 Specimen markedly ictericPROTHROMBIN TIME/TAB5567-98-05 04:51:00* Test Item Value Reference Range Interpretation [...] patie nts wiht mechanical heart valves.HEPATIC FUNCTION [id number] 05:37:00* Test Item Value Reference Range Interpretation [...] 28 U/L 6-55 Specimen markedly ictericBASIC METABOLIC [id number] 05:37:00* Test Item Value Reference Range Interpretation [...] Specimen markedly ictericCBC W/PLT COUNT & AUTO DHIOIHCLSNVI4129-87-84 04:10:00 * Test Item Value Reference Range [...] = 2801) 2 % 0-1 H PROTHROMBIN TIME/[id number] 04:07:00* Test Item Value Reference Range Interpretation [...] for patie nts wiht mechanical heart valves.BLOOD IZJJGKL9572-43-62 20:01:00* Test Item Value Reference Range Interpretation Comments CULTURE (BEAKER) (test code = 1095) No growth in 5 days BLOOD BIHMBBG2946-39-28 20:01:00* Test Item Value Reference Range Interpretation Comments CULTURE (BEAKER) (test code = 1095) No growth in 5 days U/S, STJTQOXDQGSY0090-74-50 16:58:00Worsening leukocytosis, to rule out SBP. Please do not remove >3 LReason for exam:->ascites, rule out SBPFINAL REPORT Paracentesis dated 10/27/2018 Procedure: Ultrasound-guided paracentesis. Preprocedure diagnosis: Ascites Postprocedure diagnosis: Ascites Conscious sedation: None. Radiologist: Keith Garcia M.D. Cpo: None Anesthesia: 1% Xylocaine mixed with sodium bicarbonate local anesthesia. Te chnique: After obtaining informed consent, ultrasound-guided paracentesis was p erformed under usual sterile technique. Using a 5 omani drainage catheter, punc ture was made in the right lower quadrant abdomen. Approximately 2000 cc of mayra r yellowish fluid was removed. Patient tolerated the procedure well without comp lication. Complication: None Graft/Implant: None Estimated Blood Loss: None Impr ession: Ultrasound-guided paracentesis. Signed: Keith Garcia Verified Da te/Time: 10/27/2018 16:58:17 Reading Location: [place] [address]Y CT Body Reading Viktoriya m jeziwzxlgitn0116-42-58 16:58:00Interface, External Ris In - 10/27/2018 5:00 PM CDTFINAL REPORT Paracentesis dated 10/27/2018 Procedure: Ultrasound-guided paracentesis. Preprocedure diagnosis: Ascites Postprocedure diagnosis: Ascites Conscious sedation: None. Radiologist: Keith Garcia M.D. Cpo: None Anesthesia: 1% Xylocaine mixed with sodium bicarbonate local anesthesia. Technique: After obtaining informed consent, ultrasound-guided paracentesis was performed under usual sterile technique. Using a 5 omani drainage catheter, puncture was made in the right lower quadrant abdomen. Approximately 2000 cc of clear yellowish fluid was removed. Patient tolerated the procedure well without complication. Complication: None Graft/Implant: None Estimated Blood Loss: None Impression: Ultrasound-guided paracentesis. Signed: Keith Garcia Verified Date/Time: 10/27/2018 16:58:17 Reading Location: [facility] C013Y CT Body Reading Room [facility] HospitalBody [facility] cell count with mhuqshzirxqk3435-57-18 16:24:00* Test Item Value Reference Range Interpretation Comments Appearance (test code = 9335-1) Slightly Hazy Clear A Color (test code = 6824-7) [place] Colorless, Straw A RBCs (test code = 56528-7) 309 <=1 /cu mm H Adjusted WBC Count (test code = 47657-7) 147 <=5 /cu mm H Lining Cells (test code = 47968-8) 54 <=1 /cu mm H % Segs (test code = 12235-6) 10 % % Lymphs (test code = 63110-5) 18 % % Monos (test code = 81589-5) 72 % % Eos (test code = 78722-2) 0 % % Baso (test code = 82755-0) 0 % Container Body Fluid (test code = 2873) EDTA Tube Lab Interpretation (test code = 96819-7) Abnormal [facility] HospitalBODY FLUID CELL COUNT WITH OQSTELYQDERR9457-10-69 16:24:00* Test Item Value Reference Range Interpretation [...] code = 2873) EDTA Tube LACTIC ACID, [id number] 13:51:00* Test Item Value Reference Range Interpretation Comments LACTATE BLOOD VENOUS (2) (BEAKER) (test code = 2872) 0.8 mmol/L 0 .5-2.2 Sepsis screeningSpecimen markedly ictericBASIC METABOLIC [id number] 05:53:00* Test Item Value Reference Range Interpretation [...] FOR DIALYSIS PATIENTS. Specimen markedly ictericHEPATIC FUNCTION TJRKX1535-76-86 05:51:00* Test Item Value Reference Range Interpretation [...] 347) 30 U/L 6-55 Specimen markedly ictericPROTHROMBIN TIME/AHR2317-72-04 05:07:00* Test Item Value Reference Range Interpretation [...] mechanical heart valves.CBC W/PLT COUNT & AUTO XCBMPVNMZCUJ6661-89-75 04:52:00* Test Item Value Reference Range Interpretation [...] 2801) 2 % 0-1 H U/S, ABDOMINAL, [id number] 13:11:00Abdomen limited area? Add comment if clarification [...] [place] Verified Date/Time: 10/26/2018 13:11:32 Reading Location: [address] Transitional Reading Room abdomen htsdnvk8502-93-76 13:11:00Interface, External Ris In - 10/26/2018 1:13 [...] [place] Verified Date/Time: 10/26/2018 13:11:32 Reading Location: [address] Transitional Reading Room [facility] [id number] 08:13:00* Test Item Value Reference Range Interpretation [...] FOR DIALYSIS PATIENTS. Specimen markedly ictericHEPATIC FUNCTION [id number] 08:13:00* Test Item Value Reference Range Interpretation [...] Specimen markedly ictericCBC W/PLT COUNT & AUTO YJWXENKRAVVK5798-98-32 05:46:00 * Test Item Value Reference Range [...] = 2801) 2 % 0-1 H PROTHROMBIN TIME/[id number] 05:43:00* Test Item Value Reference Range Interpretation [...] for patie nts wiht mechanical heart valves.TISSUE [id number] 18:03:00Surgical Pathology Report Case: [id number] Authorizing Provider: Shy Parisi MD Collected: 10/19/2018 0856 Ordering Location: [address] Received: 10/21/2018 0830 Service Pathologist: Jefferson Martin MD Specimens: A) - Large Intestine, Colon - Cecum, HEALING ULCER BX B) - Polyp, Colon - Right/Ascending, TAKEN BY FRCP Given the history of an atypical l ymphoid infiltrate ([id number]), the current case was reviewed by Hematopathology [...] ensure that th e current findings are medicare 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 CPT: 32629; 44280 x 4Addendum electronica lly signed by aSmina Arteaga MD on 10/25/2018 at 6:03 PMA. COLON, CECUM , HEALING ULCER, BIOPSY: - COLONIC MUCOSA WITH GRANULATION TISSUE, COMPATIBL E WITH HEALING ULCER - NEGATIVE FOR DYSPLASIA OR CARCINOMA (SEE COMMENT)B. C OLON, ASCENDING, POLYPECTOMY: - TUBULAR ADENOMA Signing Pathologist Dir ect Phone Line: [phone] signed by Jefferson Martin MD on 9 at 7:56 PMA. No dense lymphoid infiltrates are seen in the current biopsy. He matopathology consultation will be issued in an addendum.[id number] X 2Pre and postop diagnosis: gastrointestinal hemorrhage, [...] in toto in B1. CG/pl Performed.HEPATIC FUNCTION [id number] 04:53:00* Test Item Value Reference Range Interpretation [...] 35 U/L 6-55 Specimen markedly ictericBASIC METABOLIC KFSRU8026-70-01 04:53:00* Test Item Value Reference Range Interpretation [...] APPLICABLE FOR DIALYSIS PATIENTS. Specimen markedly ictericPROTHROMBIN TIME/[id number] 04:27:00* Test Item Value Reference Range Interpretation [...] mechanical heart valves.CBC W/PLT COUNT & AUTO [id number] 04:13:00* Test Item Value Reference Range Interpretation [...] 2801) 2 % 0-1 H BASIC METABOLIC [id number] 05:54:00* Test Item Value Reference Range Interpretation [...] FOR DIALYSIS PATIENTS. Specimen markedly ictericHEPATIC FUNCTION [id number] 05:54:00* Test Item Value Reference Range Interpretation [...] = 347) 31 U/L 6-55 Specimen markedly uenuuflZRGSTEJOIQ0394-37-37 05:53:00* Test Item Value Reference Range Interpretation Comments PHOSPHORUS (BEAKER) (test code = 604) 2.0 mg/dL 2.3-4.7 L VYGXIUQCY8018-93-45 05:53:00* Test Item Value Reference Range Interpretation Comments MAGNESIUM (BEAKER) (test code = 627) 2.2 mg/dL 1.6-2.6 CBC W/PLT COUNT & AUTO TJWJCRQFZYLU7898-04-79 05:27:00* Test Item Value Reference Range Interpretation [...] = 2801) 2 % 0-1 H PROTHROMBIN TIME/[id number] 05:27:00* Test Item Value Reference Range Interpretation [...] patie nts wiht mechanical heart valves.BASIC METABOLIC [id number] 11:14:00* Test Item Value Reference Range Interpretation [...] FOR DIALYSIS PATIENTS. ADD-ONSpecimen markedly ictericMISCELLANEOUS LAB [id number] 07:36:00* Test Item Value Reference Range Interpretation Comments SCAN RESULT (test code = 1577439) HEPATIC FUNCTION [id number] 05:32:00* Test Item Value Reference Range Interpretation [...] = 347) 33 U/L 6-55 Specimen markedly lwqonwmXGMMANIAQC8142-69-14 05:21:00* Test Item Value Reference Range Interpretation Comments PHOSPHORUS (BEAKER) (test code = 604) 2.2 mg/dL 2.3-4.7 L OTMHWQZCK8913-81-64 05:21:00* Test Item Value Reference Range Interpretation Comments MAGNESIUM (BEAKER) (test code = 627) 2.2 mg/dL 1.6-2.6 PROTHROMBIN TIME/[id number] 05:00:00* Test Item Value Reference Range Interpretation [...] mechanical heart valves.CBC W/PLT COUNT & AUTO [id number] 04:51:00* Test Item Value Reference Range Interpretation [...] = 2801) 2 % 0-1 H BLOOD [id number] 20:01:00* Test Item Value Reference Range Interpretation Comments CULTURE (BEAKER) (test code = 1095) No growth in 5 days BLOOD LCQLFCD2509-05-66 20:01:00* Test Item Value Reference Range Interpretation Comments CULTURE (BEAKER) (test code = 1095) No growth in 5 days URINALYSIS W/ REFLEX URINE [id number] 17:08:00* Test Item Value Reference Range Interpretation [...] SOURCE(BEAKER) (test code = 2795) BASIC METABOLIC [id number] 10:18:00* Test Item Value Reference Range Interpretation [...] Specimen markedly ictericCBC W/PLT COUNT & AUTO AEZQJVTYYCGE4364-40-40 09:06:00 * Test Item Value Reference Range [...] 347) 37 U/L 6-55 Specimen markedly ictericPROTHROMBIN TIME/BLX5368-10-61 06:10:00* Test Item Value Reference Range Interpretation [...] mechanical heart valves.Peripheral Blood Smear - Path Cdefjg9832-65-50 15:06:00* Test Item Value Reference Range Interpretation Comments RBC Morphology (test code = 2846) Polychromasia WBC Morphology (test code = 2847) Toxic Granulation Pathologist Review (test code = 2640) Cell counts confirmed. Pathologist: (test code = 2849) Samina Arteaga M.D. (electronic si gnature) [facility] HospitalPERIPHERAL [facility] - PATHOLOGIST REVIEW 2018-10-21 15:06:00* Test Item Value Reference Range Interpretation Comments RBC MORPHOLOGY (BEAKER) (test code = 2846) Polychromasia WBC MORPHOLOGY (BEAKER) (test code = 2847) Toxic Granulation PERIPHERAL SMR REVIEW (BEAKER) (test code = 2640) Cell counts confi rmed. OGPA-NRRSDCVWDDP-6269 (BEAKER) (test code = 2849) Colleen Arteaga [...] Slide comments: CBC W/PLT COUNT & AUTO JNZAMYWCVBDR8834-78-15 09:56:00* Test Item Value Reference Range Interpretation [...] 0 /100 WBC 0 -0 BASIC METABOLIC [id number] 09:01:00* Test Item Value Reference Range Interpretation [...] DIALYSIS PATIENTS. Specimen markedly ictericVITAMIN B12 AND SGJMCY4708-33-07 08:56:00* Test Item Value Reference Range Interpretation Comments VITAMIN B12 (BEAKER) (test code = 774) > pg/mL 213-816 H FOLATE (BEAKER) (test code = 362) 15.2 ng/mL >=7.0 2D Echo W/Doppler(CW/PW/Color)2018-10-21 08:44:03Ejection FractionSLEH ECHO HEARTLAB MKCKESSON CPACSInterface, External Ris In - 10/21/2018 8:44 AM CDTTransthoracic Echocardiography Report (TTE) Demographics Patient Name INDRA GALVAN Date of Study 10/20/2018 YAN CORDERO Gender Male Visit Number [id number] Race Unknown Room Number 743 Number Date of 1980 Referring Mandeep Taylor Physician Age 37 year(s) Laser Set Up Operator Wilmer Etienne Interpreting Physician MELVA Hanson Procedure Type of Study TTE procedure:2DECHO W DOPPLER(CW/PW/COLOR) (Routine) Indications:Known or suspected heart ericka lure.Clinical HistoryHGB 8.1HCT 24.0 %FATTY LIVERHTNOBESITYContrast Medium: Defi nity. Amount - 2 mlHeight: 72 inches Weight: 110.68 kg (244 lbs) BSA: 2.32 m^2 B SD: 33.09kg/m^2HR: 96 bpm BP: 113/61 mmHg Summary [...] CO: 9.21 l/min LVOT CI: 3.97 l/min/m^2 [facility] HospitalRETICULOCYTE AARDV1968-11-60 06:56:00* Test Item Value Reference Range Interpretation Comments RETICULOCYTE COUNT PCT (BEAKER) (test code = 575) 8.0 % 0.5- 1.8 H HEPATIC FUNCTION [id number] 06:35:00* Test Item Value Reference Range Interpretation [...] = 347) 34 U/L 6-55 Specimen markedly wnfjjsxQWKDTROJZUQ4326-42-04 06:12:00* Test Item Value Reference Range Interpretation Comments HAPTOGLOBIN (BEAKER) (test code = 366) 67 mg/dL 14-258 PROTHROMBIN TIME/FDB4327-93-74 05:26:00* Test Item Value Reference Range Interpretation [...] 452 U/L 125-2 20 H BASIC METABOLIC RPVFI3786-02-46 07:58:00* Test Item Value Reference Range Interpretation [...] FOR DIALYSIS PATIENTS. Specimen markedly ictericHEPATIC FUNCTION [id number] 07:38:00* Test Item Value Reference Range Interpretation [...] = 347) 26 U/L 6-55 Specimen markedly dkwjxdwSGJUZHVCX2509-82-36 07:36:00* Test Item Value Reference Range Interpretation Comments MAGNESIUM (BEAKER) (test code = 627) 2.2 mg/dL 1.6-2.6 ZVNNIZTVYO8649-03-88 07:36:00* Test Item Value Reference Range Interpretation Comments PHOSPHORUS (BEAKER) (test code = 604) 2.8 mg/dL 2.3-4.7 CBC W/PLT COUNT & AUTO UDHKXABIZRPG6265-44-76 06:58:00* Test Item Value Reference Range Interpretation [...] = 2801) 2 % 0-1 H PROTHROMBIN TIME/UXC9984-54-58 06:50:00* Test Item Value Reference Range Interpretation [...] mechanical heart valves.CBC W/PLT COUNT & AUTO EEBIHEZYMLDG1743-76-14 22:22:00* Test Item Value Reference Range Interpretation [...] 0 -0 CBC W/PLT COUNT & AUTO XDJGBNSHBUAW0057-14-29 16:47:00* Test Item Value Reference Range Interpretation [...] 0 -0 CBC W/PLT COUNT & AUTO TTUBOGUYILDY4666-86-03 09:23:00* Test Item Value Reference Range Interpretation [...] = 347) 20 U/L 6-55 Specimen markedly xzcnypiUPLCPOFLF3017-41-80 05:23:00* Test Item Value Reference Range Interpretation Comments MAGNESIUM (BEAKER) (test code = 627) 2.2 mg/dL 1.6-2.6 BASIC METABOLIC [id number] 05:23:00* Test Item Value Reference Range Interpretation [...] NOT APPLICABLE FOR DIALYSIS PATIENTS. Specimen markedly fdvjnhcKXMLAJOJXG1644-03-68 05:23:00* Test Item Value Reference Range Interpretation Comments PHOSPHORUS (BEAKER) (test code = 604) 1.6 mg/dL 2.3-4.7 L PROTHROMBIN TIME/[id number] 04:53:00* Test Item Value Reference Range Interpretation [...] ients with mechanical heart valves.Urea Nitrogen, random tqbpy0307-20-74 02:02:00* Test Item Value Reference Range Interpretation Comments Urea Nitrogen, Ur (test code = 3095-7) 120 mg/dL PHILLIP (test code = PHILLIP) Reference Range: No Normals [facility] CenterCREATININE, RANDOM [id number] 02:02:00* Test Item Value Reference Range Interpretation Comments CREATININE URINE (BEAKER) (test code = 375) 44.3 mg/dL Reference Range: No NormalsSODIUM, RANDOM [id number] 02:02:00* Test Item Value Reference Range Interpretation Comments SODIUM URINE (BEAKER) (test code = 243) 93 meq/L Reference Range: No NormalsUREA NITROGEN, RANDOM [id number] 02:02:00* Test Item Value Reference Range Interpretation Comments UREA NITROGEN URINE (BEAKER) (test code = 538) 120 mg/dL Reference Range: No NormalsCBC W/PLT COUNT & AUTO [id number] 20:17:00* Test Item Value Reference Range Interpretation [...] Slide comments: CBC W/PLT COUNT & AUTO DWHDEFDNAHYB3814-77-18 13:37:00* Test Item Value Reference Range Interpretation [...] Slide comments: CBC W/PLT COUNT & AUTO YZEJYDKZPZPJ9483-98-18 10:50:00* Test Item Value Reference Range Interpretation [...] comment: User comments: Slide comments: LACTIC ACID, EGRTIM3743-24-29 07:43:00* Test Item Value Reference Range Interpretation Comments LACTATE BLOOD VENOUS (2) (BEAKER) (test code = 2872) 0.9 mmol/L 0 .5-2.2 Specimen slightly hemolyzed Specimen markedly ictericHEPATIC FUNCTION HEAJA1961-27-34 06:45:00* Test Item Value Reference Range Interpretation [...] 19 U/L 6-55 Specimen markedly ictericBASIC METABOLIC [id number] 06:44:00* Test Item Value Reference Range Interpretation [...] APPLICABLE FOR DIALYSIS PATIENTS. Specimen markedly ictericPROTHROMBIN TIME/KHV4868-41-07 05:44:00* Test Item Value Reference Range Interpretation [...] mechanical heart valves.CBC W/PLT COUNT & AUTO [id number] 21:39:00* Test Item Value Reference Range Interpretation [...] LYMPHOCYTES - ABS (CELLAVISION)(BEAKER) (test code = 9198) 0.18 K/uL 0.00-0.00 H TOTAL COUNTED (BEAKER) (test code = 1351) 100 WBC MORPHOLOGY (BEAKER) (test code = 487) Normal GIANT PLATELETS (BEAKER) (test code = 313) Present ANISOCYTOSIS (BEAKER) (test code = 961) 1+ few ARTIFACT (CELLAVISION)(BEAKER) (test code = 3432) Present PLATELET CONCENTRATION (CELLAVISION)(BEAKER) (test code = 3438) Cheryl quate Received comment: User comments: Slide comments: URINALYSIS W/ REFLEX URINE [id number] 18:43:00* Test Item Value Reference Range Interpretation [...] 516) < /HPF SOURCE(BEAKER) (test code = 5384) BASIC METABOLIC [id number] 18:23:00* Test Item Value Reference Range Interpretation [...] FOR DIALYSIS PATIENTS. Specimen markedly ictericU/S, ABDOMINAL, [id number] 17:43:00With doppler Reason for exam:->elevated liver enzymes, [...] [place] Verified Date/Time: 10/17/2018 17:43:28 Reading Location: [address] Consult Reading Room U/S, DUPLEX, [id number] 17:43:00With doppler Reason for exam:->elevated liver enzymes, [...] Verified Date /Time: 10/17/2018 17:43:28 Reading Location: [address] Consult Reading Room bbjnrbe3353-24-67 17:43:00Interface, External Ris In - 10/17/2018 5:45 [...] [place] Verified Date/Time: 10/17/2018 17:43:28 Reading Location: [address] Consult Reading Room [facility] abdomen epjhtdoi0529-35-54 17:43:00Interface, External Ris In - 10/17/2018 5:45 [...] [place] Verified Date/Time: 10/17/2018 17:43:28 Reading Location: [address] Consult Reading Room [facility] HKOSYLSAA4073-60-26 17:35:00* Test Item Value Reference Range Interpretation Comments MAGNESIUM (BEAKER) (test code = 627) 2.3 mg/dL 1.6-2.6 CREATINE KINASE (CK)2018-10-17 16:29:00* Test Item Value Reference Range Interpretation Comments CREATINE KINASE TOTAL (BEAKER) (test code = 380) 29 U/L 29-20 0 WPGZNDPCVTKBW3233-62-91 16:11:00* Test Item Value Reference Range Interpretation Comments PROCALCITONIN (BEAKER) (test code = 3036) 0.71 ng/mL <0.05 H SEPSIS RISK (ng/mL)Low: 0.05-0.50Intermediate: 0.51-2.00High: > =2.01LACTIC ACID, [id number] 15:42:00* Test Item Value Reference Range Interpretation Comments LACTATE BLOOD VENOUS (2) (BEAKER) (test code = 2872) 1.2 mmol/L 0 .5-2.2 Specimen slightly hemolyzed Specimen markedly ictericCBC W/PLT COUNT & AUTO EWRPLJPKAGFH4250-94-36 15:29:00 * Test Item Value Reference Range [...] = 413) 0 /100 WBC 0 -0 YJTFXPS9110-26-75 15:22:00* Test Item Value Reference Range Interpretation Comments ETHANOL (BEAKER) (test code = 400) < mg/dL <=10 CBC W/PLT COUNT & AUTO UQJCHLMXRETP4077-28-37 14:47:00* Test Item Value Reference Range Interpretation [...] 21 U/L 6-55 Specimen markedly ictericBASIC METABOLIC [id number] 08:16:00* Test Item Value Reference Range Interpretation [...] PATIENTS. Specimen markedly ictericURINALYSIS W/ REFLEX URINE VCTRXFS2193-89-05 03:31:00* Test Item Value Reference Range Interpretation [...] (test code = 2795) Bilirubin Crystals seenBILIRUBIN, KGZHVM8782-41-94 00:59:00* Test Item Value Reference Range Interpretation Comments BILIRUBIN DIRECT (BEAKER) (test code = 706) 24.2 mg/dL 0.1-0.5 H Specimen slightly hemolyzed COMPREHENSIVE METABOLIC [id number] 00:58:00* Test Item Value Reference Range Interpretation [...] NOT APPLICABLE FOR DIALYSIS PATIENTS. Specimen markedly sgkjjikJDDXOHTWE9198-20-78 00:13:00* Test Item Value Reference Range Interpretation Comments MAGNESIUM (BEAKER) (test code = 627) 1.5 mg/dL 1.6-2.6 L Specimen slightly hemolyzed PROTHROMBIN TIME/[id number] 23:47:00* Test Item Value Reference Range Interpretation [...] mechanical heart valves.CBC W/PLT COUNT & AUTO JBMHJMJUOXQV5831-29-46 23:43:00* Test Item Value Reference Range Interpretation [...] 0-1 H RAD, CHEST, 1 VIEW, NON [id number] 22:36:00Reason for exam:->SOBShould this be performed at [...] [place] Verified Date/Time: 10/16/2018 22:36:02 Lactic Acid Xorul9344-61-50 20:02:00* Test Item Value Reference Range Interpretation Comments Lactic Acid Level (test code = Lactic Acid Level) 18.4 4.5- 19.8 [facility] 19:23:00 [place] [address] Patient Name: INDRA GALVAN JR MR #: [id number] : 1980 Age/Sex: 37/M Req #: [id number] Adm Physician: Ordered by: MARYLU DUQUE MD Report #: [id number] Location: ER Room/Bed: Procedure: NM/HEPTOBILIARY Exam Date: [...] COPY TO: MARYLU DUQUE MD CT ABDOMEN/PELVIS [id number] 17:40:00 [place] [address] Patient Name: INDRA GALVAN JR MR #: [id number] : 1980 Age/Sex: 37/M Req #: [id number] Adm Physician: Ordered by: MARYLU DUQUE MD Report #: [id number] Location: ER Room/Bed: Procedure: CT/CT ABDOMEN/PELVIS W [...] 10/16/181749 COPY TO: MARYLU DUQUE MD Prothrombin Pltb4941-13-60 17:34:00* Test Item Value Reference Range Interpretation Comments Prothrombin Time (test code = 5902-2) 18.5 11.9-14.[address] [facility] HospitalProthromb Time International Ratio 2018-10-16 17:34:00* Test Item Value Reference Range Interpretation Comments Prothromb Time International Ratio (test code = 6301-6) 1.48 Oral Anticoagulant Therapy INR Values:1. Low Intensity Therapy 1.5 - 2.02 . Moderate Intensity Therapy 2.0 - 3.03. High Intensity Therapy(1) 2.5 - 3. 54. High Intensity Therapy(2) 3.0 - 4.05. Panic Value INR > 5.0 [facility] HospitalAcetaminophen Xhrwa5821-05-58 17:30:00* Test Item Value Reference Range Interpretation Comments Acetaminophen Level (test code = 77060-4) < 3 10-[address] [facility] HospitalUrine [id number] 16:09:00* Test Item Value Reference Range Interpretation Comments Urine WBC (test code = 5821-4) 0-5 0-5 [facility] HospitalU[facility] PEG5500-57-66 16:09:00* Test Item Value Reference Range Interpretation Comments Urine RBC (test code = 41857-9) 6-10 0-[address] [facility] HospitalU[facility] Popapjro6800-92-77 16:09:00* Test Item Value Reference Range Interpretation Comments Urine Bacteria (test code = 59872-1) MANY NONE H [facility] Epithelial Hpqzj4637-16-01 16:09:00 * Test Item Value Reference Range Interpretation Comments Urine Epithelial Cells (test code = 13684-9) FEW NONE [facility] HospitalUrine Amorphous Gpnnvxfn0133-30-66 16:09:00* Test Item Value Reference Range Interpretation Comments Urine Amorphous Sediment (test code = 8246-1) MODERATE FEW H [facility] HospitalUrine Fine Granular Gvxcl7897-57-09 16:09:00* Test Item Value Reference Range Interpretation Comments Urine Fine Granular Casts (test code = 87714-0) 1-[address] [facility] HospitalU[facility] Kazmt8450-83-22 15:58:00* Test Item Value Reference Range Interpretation Comments Urine Color (test code = 5778-6) BROWN YELLOW [facility] Pvrghew2374-30-07 15:58:00* Test Item Value Reference Range Interpretation Comments Urine Clarity (test code = 58940-7) CLOUDY CLEAR H [facility] HospitalUrine Specific Ccngslc2463-31-54 15:58:00 * Test Item Value Reference Range Interpretation Comments Urine Specific [place] (test code = 5811-5) 1.010 1.010-1.[address] [facility] HospitalU[facility] [id number] 15:58:00* Test Item Value Reference Range Interpretation Comments Urine pH (test code = 86482-9) 7 5-7 [facility] Leukocyte Rhjvcfbi7318-37-47 15:58:00* Test Item Value Reference Range Interpretation Comments Urine Leukocyte Esterase (test code = 06292-4) SMALL NEGATIV E [facility] HospitalU[facility] Xgtlqsu5043-38-17 15:58:00* Test Item Value Reference Range Interpretation Comments Urine Nitrite (test code = 71177-8) POSITIVE NEGATIVE H [facility] Flbfvlb7945-19-00 15:58:00* Test Item Value Reference Range Interpretation Comments Urine Protein (test code = 01325-7) 2+ NEGATIVE H [facility] HospitalUrine Glucose (UA)2018-10-16 15:58:00* Test Item Value Reference Range Interpretation Comments Urine Glucose (UA) (test code = 63652-5) 2+ NEGATIVE H [facility] Zicyizw9683-59-64 15:58:00* Test Item Value Reference Range Interpretation Comments Urine Ketones (test code = 60769-0) TRACE NEGATIVE H [facility] HospitalU[facility] Mbtdvjoqqwza5486-80-60 15:58:00* Test Item Value Reference Range Interpretation Comments Urine Urobilinogen (test code = 79114-9) 1 0.2-1 [facility] Tanilcmkb1916-13-84 15:58:00* Test Item Value Reference Range Interpretation Comments Urine Bilirubin (test code = 1977-8) LARGE NEGATIVE [facility] HospitalU[facility] Sswvg9763-29-28 15:58:00* Test Item Value Reference Range Interpretation Comments Urine Blood (test code = 16420-1) 3+ NEGATIVE [facility] HospitalB-Type Natriuretic Yyravwo6435-08-59 15:31:00* Test Item Value Reference Range Interpretation Comments B-Type Natriuretic Peptide (test code = 74528-4) 403.4 0-[address] [facility] HospitalCreatine Kinase WG2707-93-52 15:20:00* Test Item Value Reference Range Interpretation Comments Creatine Kinase MB (test code = 06959-6) 0.40 0-5.0 [facility] HospitalTroponin Q7288-26-55 15:20:00* Test Item Value Reference Range Interpretation Comments Troponin I (test code = DIY1621) 0.012 0-0.300 [facility] Centerodium Tyuse2801-05-60 15:19:00* Test Item Value Reference Range Interpretation Comments Sodium Level (test code = 2951-2) 134 136-[address] [facility] HospitalPotassium Dvcfj1878-21-70 15:19:00* Test Item Value Reference Range Interpretation Comments Potassium Level (test code = 2823-3) 2.7 3.5-5.1 LL Results repeated and called to DR. KELSEY at 1518 on 10/16/18 by VICKY WHITTAKER. Read back and verified.[facility] HospitalChloride Level 2018-10-16 15:19:00* Test Item Value Reference Range Interpretation Comments Chloride Level (test code = 2075-0) 93 98-[address] [facility] HospitalCarbon Dioxide Smdmm3462-49-45 15:19:00* Test Item Value Reference Range Interpretation Comments Carbon Dioxide Level (test code = 2028-9) 28 22-29 [facility] HospitalAnion Ilq1433-04-09 15:19:00* Test Item Value Reference Range Interpretation Comments Anion Gap (test code = 67792-9) 15.7 8-16 [facility] HospitalBlood Urea Tpquiohp0694-33-64 15:19:00* Test Item Value Reference Range Interpretation Comments Blood Urea Nitrogen (test code = 3094-0) 9 7-26 [facility] HospitalCreatinine2019-08-21 15:19:00* Test Item Value Reference Range Interpretation Comments Creatinine (test code = 2160-0) 1.47 0.72-1.[address] [facility] HospitalBUN/Creatinine Xohbt8588-09-46 15:19:00* Test Item Value Reference Range Interpretation Comments BUN/Creatinine Ratio (test code = 3097-3) 6 6-25 [facility] HospitalEstimat Glomerular Filtration Rate 2018-10-16 15:19:00* Test Item Value Reference Range Interpretation Comments Estimat Glomerular Filtration Rate (test code = 950445108) 53 >60 L Ranges were taken from the National Kidney Disease Education Program and the [facility] [employer] literature.Reference ranges:60 or greater: Yxliru12-02 ( for 3 consecutive months): Chronic kidney disease 15 or less: Kidney failureSt. David's Georgetown HospitalGlucose Wivcv5913-77-68 15:19:00* Test Item Value Reference Range Interpretation Comments Glucose Level (test code = YOT9224) 144 74-[address] [facility] HospitalCalcium Sgjiv0514-54-27 15:19:00* Test Item Value Reference Range Interpretation Comments Calcium Level (test code = 55289-6) 8.5 8.4-10.2 [facility] HospitalTotal Ginhqjwmt0265-45-84 15:19:00* Test Item Value Reference Range Interpretation Comments Total Bilirubin (test code = 1975-2) > 25.0 0.2-1.[address] [facility] HospitalAspartate Amino Transf (AST/SGOT) 2018-10-16 15:19:00* Test Item Value Reference Range Interpretation Comments Aspartate Amino Transf (AST/SGOT) (test code = Aspartate Amino Transf (AST/SGOT)) 98 5-[address] [facility] HospitalAlanine Aminotransferase (ALT/SGPT) 2018-10-16 15:19:00* Test Item Value Reference Range Interpretation Comments Alanine Aminotransferase (ALT/SGPT) (test code = 1742-6) 22 0-55 [facility] HospitalTotal Sxiahnk0868-14-63 15:19:00* Test Item Value Reference Range Interpretation Comments Total Protein (test code = 2885-2) 6.6 6.5-8.1 [facility] HospitalAlbumin2019-08-21 15:19:00* Test Item Value Reference Range Interpretation Comments Albumin (test code = 1751-7) 2.5 3.5-5.[address] [facility]Globulin2019-08-21 15:19:00* Test Item Value Reference Range Interpretation Comments Globulin (test code = 90537-8) 4.1 2.3-3.[address] [facility] HospitalAlbumin/Globulin [id number] 15:19:00 * Test Item Value Reference Range Interpretation Comments Albumin/Globulin Ratio (test code = 1759-0) 0.6 0.8-2.[address] [facility] HospitalAlkaline Bnqcfvvhrxw6007-60-97 15:19:00* Test Item Value Reference Range Interpretation Comments Alkaline Phosphatase (test code = 6768-6) 159 40-[address] [facility] HospitalCreatine Voduhk4771-01-57 15:19:00* Test Item Value Reference Range Interpretation Comments Creatine Kinase (test code = 2157-6) 39 30-200 [facility] HospitalWhite Blood [id number] 14:59:00* Test Item Value Reference Range Interpretation Comments White Blood Count (test code = 6690-2) 18.65 4.8-10.[address] [facility] HospitalRed Blood Kvyat4828-32-15 14:59:00* Test Item Value Reference Range Interpretation Comments Red Blood Count (test code = 789-8) 2.11 4.3-5.[address] [facility] HospitalHemoglobin2019-08-21 14:59:00* Test Item Value Reference Range Interpretation Comments Hemoglobin (test code = 89511-0) 7.7 14.0-18.[address] [facility] HospitalHematocrit2019-08-21 14:59:00* Test Item Value Reference Range Interpretation Comments Hematocrit (test code = 4544-3) 22.2 38.2-49.[address] [facility] HospitalMean Corpuscular Lptecd5280-49-97 14:59:00* Test Item Value Reference Range Interpretation Comments Mean Corpuscular Volume (test code = 787-2) 105.2 81-[address] [facility] HospitalMean Corpuscular Dzfvbajnrl4545-77-11 14:59:00* Test Item Value Reference Range Interpretation Comments Mean Corpuscular Hemoglobin (test code = 785-6) 36.5 28-[address] [facility] HospitalMean Corpuscular Hemoglobin Concent 2018-10-16 14:59:00* Test Item Value Reference Range Interpretation Comments Mean Corpuscular Hemoglobin Concent (test code = 786-4) 34.7 31-35 [facility] HospitalRed Cell Distribution Nxcyt8266-77-63 14:59:00* Test Item Value Reference Range Interpretation Comments Red Cell Distribution Width (test code = 94604-7) 14.0 11.7 -14.4 [facility] HospitalPlatelet Exooj3030-31-06 14:59:00* Test Item Value Reference Range Interpretation Comments Platelet Count (test code = 777-3) 184 140-360 [facility] HospitalNeutrophils (%) (Auto)2018-10-16 14:59:00 * Test Item Value Reference Range Interpretation Comments Neutrophils (%) (Auto) (test code = 05073-5) 80.6 38.7-80.[address] [facility] HospitalLymphocytes (%) (Auto)2018-10-16 14:59:00 * Test Item Value Reference Range Interpretation Comments Lymphocytes (%) (Auto) (test code = 736-9) 5.3 18.0-39.[address] [facility] HospitalMonocytes (%) (Auto)2018-10-16 14:59:00* Test Item Value Reference Range Interpretation Comments Monocytes (%) (Auto) (test code = 5905-5) 11.7 4.4-11.[address] [facility] HospitalEosinophils (%) (Auto)2018-10-16 14:59:00 * Test Item Value Reference Range Interpretation Comments Eosinophils (%) (Auto) (test code = 713-8) 0.5 0.0-6.0 [facility] HospitalBasophils (%) (Auto)2018-10-16 14:59:00* Test Item Value Reference Range Interpretation Comments Basophils (%) (Auto) (test code = 706-2) 0.3 0.0-1.0 [facility] HospitalIM GRANULOCYTES %2018-10-16 14:59:00* Test Item Value Reference Range Interpretation Comments IM GRANULOCYTES % (test code = IM GRANULOCYTES %) 1.6 0.0- 1.[address] [facility] HospitalNeutrophils # (Auto)2018-10-16 14:59:00* Test Item Value Reference Range Interpretation Comments Neutrophils # (Auto) (test code = 751-8) 15.0 2.1-6.[address] [facility] HospitalLymphocytes # (Auto)2018-10-16 14:59:00* Test Item Value Reference Range Interpretation Comments Lymphocytes # (Auto) (test code = 89884-3) 1.0 1.0-3.2 [facility] HospitalMonocytes # (Auto)2018-10-16 14:59:00* Test Item Value Reference Range Interpretation Comments Monocytes # (Auto) (test code = 742-7) 2.2 0.2-0.[address] [facility] HospitalEosinophils # (Auto)2018-10-16 14:59:00* Test Item Value Reference Range Interpretation Comments Eosinophils # (Auto) (test code = 711-2) 0.1 0.0-0.4 [facility] HospitalBasophils # (Auto)2018-10-16 14:59:00* Test Item Value Reference Range Interpretation Comments Basophils # (Auto) (test code = 704-7) 0.1 0.0-0.1 [facility] HospitalAbsolute Immature Granulocyte (auto 2018-10-16 14:59:00* Test Item Value Reference Range Interpretation Comments Absolute Immature Granulocyte (auto (doug t code = Absolute Immature Granulocyte (auto) 0.30 0-0.[address] [facility] HospitalAFB CULTURE + [id number] 07:33:00* Test Item Value Reference Range Interpretation Comments CULTURE (BEAKER) (test code = 1095) No acid-fast bacilli isolate d in 42 days AFB SMEAR (BEAKER) (test code = 994) No acid fast bacilli seen FUNGUS CULTURE + [id number] 17:11:00* Test Item Value Reference Range Interpretation Comments CULTURE (BEAKER) (test code = 1095) No fungus isolated in 28 days FUNGUS SMEAR (BEAKER) (test code = 1406) No fungi seen CREATINE KINASE (CK)2018-07-09 05:38:00* Test Item Value Reference Range Interpretation Comments CREATINE KINASE TOTAL (BEAKER) (test code = 380) 17 U/L 29-20 0 L [id number] 05:37:00* Test Item Value Reference Range Interpretation Comments MAGNESIUM (BEAKER) (test code = 627) 1.6 mg/dL 1.6-2.6 BASIC METABOLIC [id number] 05:37:00* Test Item Value Reference Range Interpretation [...] FOR DIALYSIS PATIENTS. Specimen moderately ictericHEPATIC FUNCTION [id number] 05:37:00* Test Item Value Reference Range Interpretation [...] 347) 83 U/L 6-55 H Specimen moderately dzzwgfhOEXE5886-88-44 05:32:00* Test Item Value Reference Range Interpretation Comments PARTIAL THROMBOPLASTIN TIME (BEAKER) (test code = 760) 45.3 seconds 22.5-36.0 H PROTHROMBIN TIME/[id number] 05:31:00* Test Item Value Reference Range Interpretation [...] mechanical heart valves.CBC W/PLT COUNT & AUTO MOYFHOVXSIXP9701-60-65 05:08:00* Test Item Value Reference Range Interpretation [...] code = 2801) 1 % 0-1 POCT-GLUCOSE [id number] 22:05:00* Test Item Value Reference Range Interpretation Comments POC-GLUCOSE METER (BEAKER) (test code = 1538) 168 mg/dL 70-110 H TESTED AT [place] [id number] [facility] [address] [place], ESOPH, SWALLOW FUNCTION, WITH CINE OR [id number] 10:04:00Reason for exam:->evaluate swallow safety after prolonged [...] MDReport Verified Date/Time: 07/08/2018 10:04:01 Reading Location: [address] Reading Room [id number] 06:21:00* Test Item Value Reference Range Interpretation Comments MAGNESIUM (BEAKER) (test code = 627) 1.7 mg/dL 1.6-2.6 BASIC METABOLIC [id number] 06:21:00* Test Item Value Reference Range Interpretation [...] FOR DIALYSIS PATIENTS. Specimen moderately ictericHEPATIC FUNCTION [id number] 06:21:00* Test Item Value Reference Range Interpretation [...] Specimen moderately ictericCBC W/PLT COUNT & AUTO [id number] 06:09:00* Test Item Value Reference Range Interpretation [...] (test code = 2801) 1 % 0-1 [id number] 05:49:00* Test Item Value Reference Range Interpretation Comments PARTIAL THROMBOPLASTIN TIME (BEAKER) (test code = 760) 45.0 seconds 22.5-36.0 H PROTHROMBIN TIME/[id number] 05:48:00* Test Item Value Reference Range Interpretation Comments PROTIME (BEAKER) (test code = 759) 15.7 seconds 11.7-14.7 H INR (BEAKER) (test code = 370) 1.3 <=5.9 RECOMMENDED COUMADIN/WARFARIN INR THERAPY RANGESSTANDARD DOSE: 2.0 - 3.0 Inclu herb: PROPHYLAXIS for venous thrombosis, systemic embolization; TREATMENT for giulia ous thrombosis and/or pulmonary embolus.HIGH RISK: Target INR is 2.5-3.5 for pat ients with mechanical heart valves.POCT-GLUCOSE [id number] 05:45:00* Test Item Value Reference Range Interpretation Comments POC-GLUCOSE METER (BEAKER) (test code = 1538) 104 mg/dL 70-110 TESTED AT [address] [address] POCT-GLUCOSE [id number] 00:02:00* Test Item Value Reference Range Interpretation Comments POC-GLUCOSE METER (BEAKER) (test code = 1538) 102 mg/dL 70-110 TESTED AT [address] [address] POCT-GLUCOSE [id number] 18:01:00* Test Item Value Reference Range Interpretation Comments POC-GLUCOSE METER (BEAKER) (test code = 1538) 91 mg/dL 70-110 TESTED AT [address] [address] POCT-GLUCOSE [id number] 12:34:00* Test Item Value Reference Range Interpretation Comments POC-GLUCOSE METER (BEAKER) (test code = 1538) 94 mg/dL 70-110 TESTED AT [address] [address] POCT-GLUCOSE [id number] 06:22:00* Test Item Value Reference Range Interpretation Comments POC-GLUCOSE METER (BEAKER) (test code = 1538) 111 mg/dL 70-110 H TESTED AT [address] [address] [id number] 06:14:00* Test Item Value Reference Range Interpretation Comments MAGNESIUM (BEAKER) (test code = 627) 1.8 mg/dL 1.6-2.6 BASIC METABOLIC [id number] 06:14:00* Test Item Value Reference Range Interpretation [...] FOR DIALYSIS PATIENTS. Specimen moderately ictericHEPATIC FUNCTION [id number] 06:14:00* Test Item Value Reference Range Interpretation [...] 347) 93 U/L 6-55 H Specimen moderately [id number] 05:42:00* Test Item Value Reference Range Interpretation Comments PARTIAL THROMBOPLASTIN TIME (BEAKER) (test code = 760) 43.0 seconds 22.5-36.0 H PROTHROMBIN TIME/[id number] 05:41:00* Test Item Value Reference Range Interpretation [...] mechanical heart valves.CBC W/PLT COUNT & AUTO [id number] 05:30:00* Test Item Value Reference Range Interpretation [...] code = 2801) 1 % 0-1 POCT-GLUCOSE [id number] 00:27:00* Test Item Value Reference Range Interpretation Comments POC-GLUCOSE METER (BEAKER) (test code = 1538) 110 mg/dL 70-110 TESTED AT [address] [address] POCT-GLUCOSE [id number] 17:58:00* Test Item Value Reference Range Interpretation Comments POC-GLUCOSE METER (BEAKER) (test code = 1538) 165 mg/dL 70-110 H TESTED AT [address] [address] POCT-GLUCOSE [id number] 12:01:00* Test Item Value Reference Range Interpretation Comments POC-GLUCOSE METER (BEAKER) (test code = 1538) 138 mg/dL 70-110 H TESTED AT [address] [address] [id number] 07:32:00* Test Item Value Reference Range Interpretation Comments PARTIAL THROMBOPLASTIN TIME (BEAKER) (test code = 760) 43.2 seconds 22.5-36.0 H PROTHROMBIN TIME/[id number] 07:31:00* Test Item Value Reference Range Interpretation Comments PROTIME (BEAKER) (test code = 759) 15.1 seconds 11.7-14.7 H INR (BEAKER) (test code = 370) 1.3 <=5.9 RECOMMENDED COUMADIN/WARFARIN INR THERAPY RANGESSTANDARD DOSE: 2.0 - 3.0 Inclu herb: PROPHYLAXIS for venous thrombosis, systemic embolization; TREATMENT for giulia ous thrombosis and/or pulmonary embolus.HIGH RISK: Target INR is 2.5-3.5 for pat ients with mechanical heart valves.[id number] 06:50:00* Test Item Value Reference Range Interpretation Comments MAGNESIUM (BEAKER) (test code = 627) 1.5 mg/dL 1.6-2.6 L BASIC METABOLIC [id number] 06:50:00* Test Item Value Reference Range Interpretation [...] FOR DIALYSIS PATIENTS. Specimen moderately ictericHEPATIC FUNCTION [id number] 06:50:00* Test Item Value Reference Range Interpretation [...] Specimen moderately ictericCBC W/PLT COUNT & AUTO [id number] 06:49:00* Test Item Value Reference Range Interpretation [...] code = 2801) 1 % 0-1 POCT-GLUCOSE [id number] 06:06:00* Test Item Value Reference Range Interpretation Comments POC-GLUCOSE METER (BEAKER) (test code = 1538) 165 mg/dL 70-110 H TESTED AT [address] [address] POCT-GLUCOSE [id number] 00:15:00* Test Item Value Reference Range Interpretation Comments POC-GLUCOSE METER (BEAKER) (test code = 1538) 132 mg/dL 70-110 H TESTED AT [address] [address] POCT-GLUCOSE [id number] 21:55:00* Test Item Value Reference Range Interpretation Comments POC-GLUCOSE METER (BEAKER) (test code = 1538) 161 mg/dL 70-110 H TESTED AT [address] [address] POCT-GLUCOSE [id number] 17:57:00* Test Item Value Reference Range Interpretation Comments POC-GLUCOSE METER (BEAKER) (test code = 1538) 136 mg/dL 70-110 H TESTED AT [address] [address] TISSUE [id number] 16:12:00Surgical Pathology Report Case: [id number] Authorizing Provider: Neptali Kolb, Collected: 07/04/2018 0827 Ordering Location: [address] Received: 07/04/2018 1313 Pathologist: Be Arenas MD Specimen: Cecum, R/O lymphoma PART A CECAL BIOPSY:GRANULATION TISSUE.NO EVIDENCE OF LYMPHOMA OR CARCINOMA..IMMUNOSTAINS FOR CMV, HSV1, HSV2 ARE NEGATIVE.SPECIAL STAINS FOR FUNGAL ORGANISMS (GMS, PAS) ARE NEGATIVE.SEE DIAGNOSTIC COMMENT. Signing Pathologist Direct Phone Line: [phone] signed by Be Arenas MD on 07/05/2018 [...] the sampled material may not be fully medicare 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 The prominent B cell population identified in the prior study ([id number]) is not identified in the current study. If there is a strong clinical concern for a malignant process, additional tissue based studies are recommended as the sampled material may not be fully medicare 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 [address], [address], 37804I2, 22083N4Evngf ulcer lower GI bleeding, rule out lymphomaCecum Received in formalin labeled as "cecum, rule out lymphoma" are multiple more than five red-guajardo tissue fragments ranging from 0.1 to 0.4 cm. The specimen is submitted in toto in one cassette. [place]/plperformedThe interpretation of this case included the use of immunohistochemistry or special stains.BLOCK A1- GMS, PAS, HSV1, HSV2, CD20, PAX5, CD3, TI5Oqudadd Slides Exa mined: In-house known positive controls were evaluated along with the test tiss ue. These control slides run alongside of the patients sample show appropriate staining. Internal positive and negative controls when available are evaluated I mmunohistochemistry technical testing was performed at [facility], Pathology Laboratory where it was developed and [...] perfo rm high complexity clinical laboratory testing.POCT-GLUCOSE [id number] 12:01:00* Test Item Value Reference Range Interpretation Comments POC-GLUCOSE METER (BEAKER) (test code = 1538) 157 mg/dL 70-110 H TESTED AT [address] [address] CBC W/PLT COUNT & AUTO [id number] 07:05:00* Test Item Value Reference Range Interpretation [...] Received comment: User comments: Slide comments: POCT-GLUCOSE [id number] 06:09:00* Test Item Value Reference Range Interpretation Comments POC-GLUCOSE METER (BEAKER) (test code = 1538) 148 mg/dL 70-110 H TESTED AT [facility] [address] [facility] [address] [id number] 05:03:00* Test Item Value Reference Range Interpretation Comments MAGNESIUM (BEAKER) (test code = 627) 1.7 mg/dL 1.6-2.6 BASIC METABOLIC [id number] 05:03:00* Test Item Value Reference Range Interpretation [...] FOR DIALYSIS PATIENTS. Specimen moderately ictericHEPATIC FUNCTION [id number] 05:03:00* Test Item Value Reference Range Interpretation [...] 347) 112 U/L 6-55 H Specimen moderately [id number] 04:56:00* Test Item Value Reference Range Interpretation Comments PARTIAL THROMBOPLASTIN TIME (BEAKER) (test code = 760) 49.3 seconds 22.5-36.0 H PROTHROMBIN TIME/[id number] 04:55:00* Test Item Value Reference Range Interpretation Comments PROTIME (BEAKER) (test code = 759) 16.0 seconds 11.7-14.7 H INR (BEAKER) (test code = 370) 1.4 <=5.9 RECOMMENDED COUMADIN/WARFARIN INR THERAPY RANGESSTANDARD DOSE: 2.0 - 3.0 Inclu herb: PROPHYLAXIS for venous thrombosis, systemic embolization; TREATMENT for giulia ous thrombosis and/or pulmonary embolus.HIGH RISK: Target INR is 2.5-3.5 for pat ients with mechanical heart valves.POCT-GLUCOSE [id number] 00:01:00* Test Item Value Reference Range Interpretation Comments POC-GLUCOSE METER (BEAKER) (test code = 1538) 144 mg/dL 70-110 H TESTED AT [facility] [address] [facility] [address] POCT-GLUCOSE [id number] 18:04:00* Test Item Value Reference Range Interpretation Comments POC-GLUCOSE METER (BEAKER) (test code = 1538) 113 mg/dL 70-110 H TESTED AT [address] [address] POCT-GLUCOSE [id number] 11:48:00* Test Item Value Reference Range Interpretation Comments POC-GLUCOSE METER (BEAKER) (test code = 1538) 92 mg/dL 70-110 TESTED AT [address] [address] CBC W/PLT COUNT & AUTO [id number] 10:15:00* Test Item Value Reference Range Interpretation [...] Received comment: User comments: Slide comments: POCT-GLUCOSE [id number] 06:36:00* Test Item Value Reference Range Interpretation Comments POC-GLUCOSE METER (BEAKER) (test code = 1538) 107 mg/dL 70-110 TESTED AT [facility] [address] [facility] [address] [id number] 05:42:00* Test Item Value Reference Range Interpretation Comments MAGNESIUM (BEAKER) (test code = 627) 1.9 mg/dL 1.6-2.6 Specimen slightly hemolyzed BASIC METABOLIC [id number] 05:42:00* Test Item Value Reference Range Interpretation [...] FOR DIALYSIS PATIENTS. Specimen moderately ictericHEPATIC FUNCTION [id number] 05:42:00* Test Item Value Reference Range Interpretation [...] 6-55 H Specimen slightly hemolyzed Specimen moderately [id number] 05:35:00* Test Item Value Reference Range Interpretation Comments PARTIAL THROMBOPLASTIN TIME (BEAKER) (test code = 760) 40.6 seconds 22.5-36.0 H PROTHROMBIN TIME/[id number] 05:34:00* Test Item Value Reference Range Interpretation Comments PROTIME (BEAKER) (test code = 759) 16.0 seconds 11.7-14.7 H INR (BEAKER) (test code = 370) 1.3 <=5.9 RECOMMENDED COUMADIN/WARFARIN INR THERAPY RANGESSTANDARD DOSE: 2.0 - 3.0 Inclu herb: PROPHYLAXIS for venous thrombosis, systemic embolization; TREATMENT for giulia ous thrombosis and/or pulmonary embolus.HIGH RISK: Target INR is 2.5-3.5 for pat ients with mechanical heart valves.POCT-GLUCOSE [id number] 00:32:00* Test Item Value Reference Range Interpretation Comments POC-GLUCOSE METER (BEAKER) (test code = 1538) 106 mg/dL 70-110 [address]ED AT [address] [address] RAD, CHEST, 1 VIEW, NON [id number] 18:48:00Reason for exam:->SOBShould this be performed at [...] Garcia Verified Date/Time: 07/03/2018 18:48:11 Reading Location: [address] Consult Reading Room -GLUCOSE [id number] 17:36:00* Test Item Value Reference Range Interpretation Comments POC-GLUCOSE METER (BEAKER) (test code = 1538) 130 mg/dL 70-110 H TESTED AT [address] [address] HEMOGLOBIN AND [id number] 14:44:00* Test Item Value Reference Range Interpretation Comments HEMOGLOBIN (BEAKER) (test code = 410) 8.1 GM/DL 13.7-17.5 L HEMATOCRIT (BEAKER) (test code = 411) 25.8 % 40.1-51.0 L CBC W/PLT COUNT & AUTO [id number] 12:53:00* Test Item Value Reference Range Interpretation [...] MDReport Verified Date/Time: 07/03/2018 07:23:40 Reading Location: [facility] Radiology Reading Room -GLUCOSE [id number] 06:01:00* Test Item Value Reference Range Interpretation Comments POC-GLUCOSE METER (BEAKER) (test code = 1538) 203 mg/dL 70-110 H TESTED AT [facility] [address] [facility] [address] [id number] 05:39:00* Test Item Value Reference Range Interpretation Comments MAGNESIUM (BEAKER) (test code = 627) 1.7 mg/dL 1.6-2.6 BASIC METABOLIC [id number] 05:39:00* Test Item Value Reference Range Interpretation [...] FOR DIALYSIS PATIENTS. Specimen moderately ictericHEPATIC FUNCTION [id number] 05:39:00* Test Item Value Reference Range Interpretation [...] 347) 125 U/L 6-55 H Specimen moderately [id number] 05:10:00* Test Item Value Reference Range Interpretation Comments PARTIAL THROMBOPLASTIN TIME (BEAKER) (test code = 760) 41.9 seconds 22.5-36.0 H PROTHROMBIN TIME/[id number] 05:09:00* Test Item Value Reference Range Interpretation [...] pat ients with mechanical heart valves.HEMOGLOBIN AND [id number] 00:58:00 * Test Item Value Reference Range Interpretation Comments HEMOGLOBIN (BEAKER) (test code = 410) 8.3 GM/DL 13.7-17.5 L HEMATOCRIT (BEAKER) (test code = 411) 26.1 % 40.1-51.0 L POCT-GLUCOSE [id number] 23:25:00* Test Item Value Reference Range Interpretation Comments POC-GLUCOSE METER (BEAKER) (test code = 1538) 179 mg/dL 70-110 H TESTED AT [facility] [address] [facility] [address] POCT-GLUCOSE [id number] 18:01:00* Test Item Value Reference Range Interpretation Comments POC-GLUCOSE METER (BEAKER) (test code = 1538) 175 mg/dL 70-110 H TESTED AT [place] [address] [facility] [address] HEMOGLOBIN AND [id number] 17:25:00* Test Item Value Reference Range Interpretation Comments HEMOGLOBIN (BEAKER) (test code = 410) 7.9 GM/DL 13.7-17.5 L HEMATOCRIT (BEAKER) (test code = 411) 24.0 % 40.1-51.0 L CBC W/PLT COUNT & AUTO [id number] 13:26:00* Test Item Value Reference Range Interpretation [...] Received comment: User comments: Slide comments: POCT-GLUCOSE [id number] 11:58:00* Test Item Value Reference Range Interpretation Comments POC-GLUCOSE METER (BEAKER) (test code = 1538) 148 mg/dL 70-110 H TESTED AT [facility] [address] [facility] [address] RAD, CHEST, 1 VIEW, NON [id number] 07:41:00Reason for exam:->Pulmonary edema evaluationShould this be [...] Sloan Verified Date/Time: 07/02/2018 07:41:39 Reading Location: [facility] Radiology Reading Room [id number] 07:01:00* Test Item Value Reference Range Interpretation Comments PARTIAL THROMBOPLASTIN TIME (BEAKER) (test code = 760) 46.2 seconds 22.5-36.0 H PROTHROMBIN TIME/[id number] 06:59:00* Test Item Value Reference Range Interpretation [...] pat ients with mechanical heart valves.HEMOGLOBIN AND [id number] 06:48:00 * Test Item Value Reference Range Interpretation Comments HEMOGLOBIN (BEAKER) (test code = 410) 7.9 GM/DL 13.7-17.5 L HEMATOCRIT (BEAKER) (test code = 411) 25.0 % 40.1-51.0 L POCT-GLUCOSE [id number] 06:17:00* Test Item Value Reference Range Interpretation Comments POC-GLUCOSE METER (BEAKER) (test code = 1538) 170 mg/dL 70-110 H TESTED AT [facility] [address] [facility] [address] CREATINE KINASE (CK)2018-07-02 03:50:00* Test Item Value Reference Range Interpretation Comments CREATINE KINASE TOTAL (BEAKER) (test code = 380) 17 U/L 29-20 0 L [id number] 03:44:00* Test Item Value Reference Range Interpretation Comments MAGNESIUM (BEAKER) (test code = 627) 1.9 mg/dL 1.6-2.6 Specimen slightly hemolyzed BASIC METABOLIC [id number] 03:44:00* Test Item Value Reference Range Interpretation [...] FOR DIALYSIS PATIENTS. Specimen moderately ictericHEPATIC FUNCTION [id number] 03:44:00* Test Item Value Reference Range Interpretation [...] Specimen slightly hemolyzed Specimen moderately ictericHEMOGLOBIN AND [id number] 03:08:00* Test Item Value Reference Range Interpretation Comments HEMOGLOBIN (BEAKER) (test code = 410) 7.9 GM/DL 13.7-17.5 L HEMATOCRIT (BEAKER) (test code = 411) 24.8 % 40.1-51.0 L POCT-GLUCOSE [id number] 23:24:00* Test Item Value Reference Range Interpretation Comments POC-GLUCOSE METER (BEAKER) (test code = 1538) 155 mg/dL 70-110 H TESTED AT [address] [address] HEMOGLOBIN AND [id number] 18:35:00* Test Item Value Reference Range Interpretation Comments HEMOGLOBIN (BEAKER) (test code = 410) 7.9 GM/DL 13.7-17.5 L HEMATOCRIT (BEAKER) (test code = 411) 24.1 % 40.1-51.0 L POCT-GLUCOSE [id number] 17:49:00* Test Item Value Reference Range Interpretation Comments POC-GLUCOSE METER (BEAKER) (test code = 1538) 148 mg/dL 70-110 H TESTED AT [address] [address] POCT-GLUCOSE [id number] 11:44:00* Test Item Value Reference Range Interpretation Comments POC-GLUCOSE METER (BEAKER) (test code = 1538) 151 mg/dL 70-110 H TESTED AT [address] [address] HEMOGLOBIN AND [id number] 10:59:00* Test Item Value Reference Range Interpretation Comments HEMOGLOBIN (BEAKER) (test code = 410) 8.0 GM/DL 13.7-17.5 L HEMATOCRIT (BEAKER) (test code = 411) 24.0 % 40.1-51.0 L RAD, CHEST, 1 VIEW, NON [id number] 08:47:00Reason for exam:->Pulmonary edema evaluationShould this be [...] MDReport Verified Date/Time: 07/01/2018 08:47:41 Reading Location: [facility] Diagnostic Imaging Reading Room - [place] [address] -GLUCOSE [id number] 06:47:00 * Test Item Value Reference Range Interpretation Comments POC-GLUCOSE METER (BEAKER) (test code = 1538) 153 mg/dL 70-110 H TESTED AT [facility] [address] [facility] [address] [id number] 04:06:00* Test Item Value Reference Range Interpretation Comments MAGNESIUM (BEAKER) (test code = 627) 1.9 mg/dL 1.6-2.6 BASIC METABOLIC [id number] 04:06:00* Test Item Value Reference Range Interpretation [...] FOR DIALYSIS PATIENTS. Specimen moderately ictericHEPATIC FUNCTION [id number] 04:06:00* Test Item Value Reference Range Interpretation [...] 347) 145 U/L 6-55 H Specimen moderately [id number] 03:50:00* Test Item Value Reference Range Interpretation Comments PARTIAL THROMBOPLASTIN TIME (BEAKER) (test code = 760) 46.8 seconds 22.5-36.0 H PROTHROMBIN TIME/[id number] 03:49:00* Test Item Value Reference Range Interpretation [...] mechanical heart valves.CBC W/PLT COUNT & AUTO [id number] 03:32:00* Test Item Value Reference Range Interpretation [...] 2801) 2 % 0-1 H HEMOGLOBIN AND [id number] 03:20:00* Test Item Value Reference Range Interpretation Comments HEMOGLOBIN (BEAKER) (test code = 410) 7.7 GM/DL 13.7-17.5 L HEMATOCRIT (BEAKER) (test code = 411) 24.3 % 40.1-51.0 L POCT-GLUCOSE [id number] 23:51:00* Test Item Value Reference Range Interpretation Comments POC-GLUCOSE METER (BEAKER) (test code = 1538) 146 mg/dL 70-110 H TESTED AT [facility] [address] [facility] [address] POCT-GLUCOSE [id number] 17:40:00* Test Item Value Reference Range Interpretation Comments POC-GLUCOSE METER (BEAKER) (test code = 1538) 194 mg/dL 70-110 H TESTED AT [facility] [address] [facility] [address] HEMOGLOBIN AND [id number] 17:33:00* Test Item Value Reference Range Interpretation Comments HEMOGLOBIN (BEAKER) (test code = 410) 7.9 GM/DL 13.7-17.5 L HEMATOCRIT (BEAKER) (test code = 411) 24.6 % 40.1-51.0 L CBC W/PLT COUNT & AUTO [id number] 15:29:00* Test Item Value Reference Range Interpretation [...] Received comment: User comments: Slide comments: POCT-GLUCOSE [id number] 11:51:00* Test Item Value Reference Range Interpretation Comments POC-GLUCOSE METER (BEAKER) (test code = 1538) 191 mg/dL 70-110 H TESTED AT [facility] [address] [facility] [address] HEMOGLOBIN AND [id number] 09:19:00* Test Item Value Reference Range Interpretation Comments HEMOGLOBIN (BEAKER) (test code = 410) 7.8 GM/DL 13.7-17.5 L HEMATOCRIT (BEAKER) (test code = 411) 24.1 % 40.1-51.0 L RAD, CHEST, 1 VIEW, NON [id number] 08:34:00Reason for exam:->Pulmonary edema evaluationShould this be [...] MDReport Verified Date/Time: 06/30/2018 08:34:20 Reading Location: [facility] B1 C013W Consult Reading Room ESIUM 2018-06-30 07:03:00* Test Item Value Reference Range Interpretation Comments MAGNESIUM (BEAKER) (test code = 627) 2.1 mg/dL 1.6-2.6 BASIC METABOLIC [id number] 07:03:00* Test Item Value Reference Range Interpretation [...] FOR DIALYSIS PATIENTS. Specimen moderately ictericHEPATIC FUNCTION [id number] 07:03:00* Test Item Value Reference Range Interpretation [...] 162 U/L 6-55 H Specimen moderately ictericPOCT-GLUCOSE [id number] 06:08:00* Test Item Value Reference Range Interpretation Comments POC-GLUCOSE METER (BEAKER) (test code = 1538) 127 mg/dL 70-110 H TESTED AT [facility] [address] [facility] [address] [id number] 06:06:00* Test Item Value Reference Range Interpretation Comments PARTIAL THROMBOPLASTIN TIME (BEAKER) (test code = 760) 27.4 seconds 22.5-36.0 PROTHROMBIN TIME/[id number] 06:05:00* Test Item Value Reference Range Interpretation [...] pat ients with mechanical heart valves.HEMOGLOBIN AND [id number] 00:04:00 * Test Item Value Reference Range Interpretation Comments HEMOGLOBIN (BEAKER) (test code = 410) 8.3 GM/DL 13.7-17.5 L HEMATOCRIT (BEAKER) (test code = 411) 25.4 % 40.1-51.0 L POCT-GLUCOSE [id number] 00:02:00* Test Item Value Reference Range Interpretation Comments POC-GLUCOSE METER (BEAKER) (test code = 1538) 140 mg/dL 70-110 H TESTED AT [facility] [address] [facility] [address] POCT-GLUCOSE [id number] 17:41:00* Test Item Value Reference Range Interpretation Comments POC-GLUCOSE METER (BEAKER) (test code = 1538) 155 mg/dL 70-110 H TESTED AT [facility] [address] [facility] [address] HEMOGLOBIN AND [id number] 16:00:00* Test Item Value Reference Range Interpretation Comments HEMOGLOBIN (BEAKER) (test code = 410) 8.2 GM/DL 13.7-17.5 L HEMATOCRIT (BEAKER) (test code = 411) 25.5 % 40.1-51.0 L BLOOD GAS, [id number] 15:50:00* Test Item Value Reference Range Interpretation [...] 30.0 % RAD, CHEST, 1 VIEW, NON [id number] 14:58:00Reason for exam:->Pulmonary edema evaluationShould this be performed at the bedside?->YesFINAL REPORT AP chest HISTORY: Pulmonary edema. COMPARISON: 06/28/2018. IMPRESSION: Tracheostomy tube and feeding tube present. Hypoinflation. Mild interstitial edema, increased from previous. No effusion or pneumothorax. Signed: Eric Andrade MDReport Verified Date/Time: 06/29/2018 14:58:10 Reading Location: [address] Transitional Reading Room W/PLT COUNT & [...] Received comment: User comments: Slide comments: POCT-GLUCOSE [id number] 12:20:00* Test Item Value Reference Range Interpretation Comments POC-GLUCOSE METER (BEAKER) (test code = 1538) 154 mg/dL 70-110 H TESTED AT [facility] [address] [facility] [address] [id number] 06:44:00* Test Item Value Reference Range Interpretation Comments PARTIAL THROMBOPLASTIN TIME (BEAKER) (test code = 760) 40.7 seconds 22.5-36.0 H PROTHROMBIN TIME/[id number] 06:43:00* Test Item Value Reference Range Interpretation Comments PROTIME (BEAKER) (test code = 759) 16.8 seconds 11.7-14.7 H INR (BEAKER) (test code = 370) 1.4 <=5.9 RECOMMENDED COUMADIN/WARFARIN INR THERAPY RANGESSTANDARD DOSE: 2.0 - 3.0 Inclu herb: PROPHYLAXIS for venous thrombosis, systemic embolization; TREATMENT for giulia ous thrombosis and/or pulmonary embolus.HIGH RISK: Target INR is 2.5-3.5 for pat ients with mechanical heart valves.POCT-GLUCOSE [id number] 06:07:00* Test Item Value Reference Range Interpretation Comments POC-GLUCOSE METER (BEAKER) (test code = 1538) 177 mg/dL 70-110 H TESTED AT [facility] [address] [facility] [address] [id number] 04:04:00* Test Item Value Reference Range Interpretation Comments MAGNESIUM (BEAKER) (test code = 627) 2.0 mg/dL 1.6-2.6 Specimen slightly hemolyzed BASIC METABOLIC [id number] 04:04:00* Test Item Value Reference Range Interpretation [...] FOR DIALYSIS PATIENTS. Specimen markedly ictericHEPATIC FUNCTION [id number] 04:04:00* Test Item Value Reference Range Interpretation [...] Specimen slightly hemolyzed Specimen markedly ictericHEMOGLOBIN AND [id number] 01:37:00* Test Item Value Reference Range Interpretation Comments HEMOGLOBIN (BEAKER) (test code = 410) 7.7 GM/DL 13.7-17.5 L HEMATOCRIT (BEAKER) (test code = 411) 23.9 % 40.1-51.0 L POCT-GLUCOSE [id number] 00:12:00* Test Item Value Reference Range Interpretation Comments POC-GLUCOSE METER (BEAKER) (test code = 1538) 158 mg/dL 70-110 H TESTED AT [facility] [address] [facility] [address] SODIUM, RANDOM [id number] 20:36:00* Test Item Value Reference Range Interpretation Comments SODIUM URINE (BEAKER) (test code = 243) < meq/L Reference Range: No NormalsPOCT-GLUCOSE [id number] 20:24:00* Test Item Value Reference Range Interpretation Comments POC-GLUCOSE METER (BEAKER) (test code = 1538) 169 mg/dL 70-110 H TESTED AT [place] [id number] [facility] [address] HEMOGLOBIN AND [id number] 20:24:00* Test Item Value Reference Range Interpretation Comments HEMOGLOBIN (BEAKER) (test code = 410) 6.9 GM/DL 13.7-17.5 L HEMATOCRIT (BEAKER) (test code = 411) 21.1 % 40.1-51.0 L HEMOGLOBIN AND [id number] 18:35:00* Test Item Value Reference Range Interpretation Comments HEMOGLOBIN (BEAKER) (test code = 410) 6.7 GM/DL 13.7-17.5 L HEMATOCRIT (BEAKER) (test code = 411) 20.7 % 40.1-51.0 L YARI ANTIGEN WITH REFLEX TO [id number] 18:29:00* Test Item Value Reference Range Interpretation Comments YARI ANTIGEN (BEAKER) (test code = 1782) Positive YARI ANTIGEN [id number] 18:29:00* Test Item Value Reference Range Interpretation Comments YARI ANTIGEN TITER (BEAKER) (test code = 737) :2 POCT-GLUCOSE [id number] 17:43:00* Test Item Value Reference Range Interpretation Comments POC-GLUCOSE METER (BEAKER) (test code = 1538) 108 mg/dL 70-110 [address] [address] POCT-GLUCOSE [id number] 12:27:00* Test Item Value Reference Range Interpretation Comments POC-GLUCOSE METER (BEAKER) (test code = 1538) 152 mg/dL 70-110 H TESTED AT [address] [address] CBC W/PLT COUNT & AUTO [id number] 12:16:00* Test Item Value Reference Range Interpretation [...] 40.1-51.0 L RAD, CHEST, 1 VIEW, NON [id number] 09:28:00Reason for exam:->Pulmonary edema evaluationShould this be [...] Sloan Verified Date/Time: 06/28/2018 09:28:59 Reading Location: [facility] Radiology Reading Room - GLUCOSE [id number] 06:13:00* Test Item Value Reference Range Interpretation Comments POC-GLUCOSE METER (BEAKER) (test code = 1538) 123 mg/dL 70-110 H TESTED AT [address] [address] BASIC METABOLIC [id number] 05:57:00* Test Item Value Reference Range Interpretation [...] NOT APPLICABLE FOR DIALYSIS PATIENTS. Specimen markedly [id number] 05:56:00* Test Item Value Reference Range Interpretation Comments MAGNESIUM (BEAKER) (test code = 627) 2.3 mg/dL 1.6-2.6 HEPATIC FUNCTION [id number] 05:56:00* Test Item Value Reference Range Interpretation [...] 347) 180 U/L 6-55 H Specimen markedly [id number] 05:43:00* Test Item Value Reference Range Interpretation Comments PARTIAL THROMBOPLASTIN TIME (BEAKER) (test code = 760) 45.3 seconds 22.5-36.0 H PROTHROMBIN TIME/[id number] 05:42:00* Test Item Value Reference Range Interpretation Comments PROTIME (BEAKER) (test code = 759) 17.5 seconds 11.7-14.7 H INR (BEAKER) (test code = 370) 1.5 <=5.9 RECOMMENDED COUMADIN/WARFARIN INR THERAPY RANGESSTANDARD DOSE: 2.0 - 3.0 Inclu herb: PROPHYLAXIS for venous thrombosis, systemic embolization; TREATMENT for giulia ous thrombosis and/or pulmonary embolus.HIGH RISK: Target INR is 2.5-3.5 for pat ients with mechanical heart valves.POCT-GLUCOSE [id number] 00:23:00* Test Item Value Reference Range Interpretation Comments POC-GLUCOSE METER (BEAKER) (test code = 1538) 183 mg/dL 70-110 H TESTED AT [facility] [address] [facility] [address] HEMOGLOBIN AND [id number] 20:24:00* Test Item Value Reference Range Interpretation Comments HEMOGLOBIN (BEAKER) (test code = 410) 7.4 GM/DL 13.7-17.5 L HEMATOCRIT (BEAKER) (test code = 411) 22.3 % 40.1-51.0 L POCT-GLUCOSE [id number] 18:08:00* Test Item Value Reference Range Interpretation Comments POC-GLUCOSE METER (BEAKER) (test code = 1538) 171 mg/dL 70-110 H TESTED AT [facility] [address] [facility] [address] TISSUE [id number] 17:16:00Surgical Pathology Report Case: [id number] Authorizing Provider: Seven Tubbs MD Collected: 06/19/2018 1536 Ordering Location: [address] Received: 06/20/2018 0750 Pathologist: Jb Brock MD Specimen: Cecum, Cecal Ulcer Bx COLON, CECUM, ULCER, BIOPSY: - ATYPICAL LYMPHOID PROLIFERATION 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 Samm Arenas, [facility] Hematopathology, who concurs with the diagnosis. [id number] Cecal ulcer biops yThe specimen is received in a formalin-filled container and labeled with the p atient's information and labeled "cecal ulcer biopsy" and consists of a 0.2 cm f ragment of guajardo tissue, submitted entirely A1. CG/pl Performed.The following carlos tional immunohistochemical stains, were evaluated on the biopsy with appropriate controls:CD3, CD5, CD10, CD20, BCL-2, BCL-6, CyclinD1, Ki-67, [place], Lambda, PA X-5.CD3, CD5 and BCL-2 have similar patterns and highlight T lymphocytes. CD20 a nd PAX-5 highlights increased large, atypical appearing B cells. [place] and Santana da demonstrate polytypic plasma cells. [...] KI-67.Immunohistochemistry technical te sting was performed at [facility], Pathology Laboratory wh ere it was developed [...] and its performance c haracteristics determined by [facility], Pathology Laboratory. It has not been cleared [...] as qualified to perform high complexity clinic [place] laboratory testing.[facility], Department of Pathology, [address] [place] [address], [facility], [facility] of [facility]ology, [address] [place] [address], [facility], [address] [place] [address], b-TYPE NATRIURETIC FACTOR (BNP) 2018-06-27 13:44:00* Test Item Value Reference Range Interpretation Comments B-TYPE NATRIURETIC PEPTIDE (BEAKER) (test code = 700) 179 pg/mL 0-100 H HEMOGLOBIN AND [id number] 13:18:00* Test Item Value Reference Range Interpretation Comments HEMOGLOBIN (BEAKER) (test code = 410) 7.9 GM/DL 13.7-17.5 L HEMATOCRIT (BEAKER) (test code = 411) 23.6 % 40.1-51.0 L CBC W/PLT COUNT & AUTO [id number] 13:10:00* Test Item Value Reference Range Interpretation [...] [place] Verified Date/Time: 06/27/2018 12:39:10 Reading Location: [facility] Radiology Reading Room -GLUCOSE [id number] 11:38:00 * Test Item Value Reference Range Interpretation Comments POC-GLUCOSE METER (BEAKER) (test code = 1538) 181 mg/dL 70-110 H TESTED AT [place] [id number] HEMOGLOBIN AND [id number] 09:34:00* Test Item Value Reference Range Interpretation Comments HEMOGLOBIN (BEAKER) (test code = 410) 8.1 GM/DL 13.7-17.5 L HEMATOCRIT (BEAKER) (test code = 411) 24.9 % 40.1-51.0 L POCT-GLUCOSE [id number] 06:28:00* Test Item Value Reference Range Interpretation Comments POC-GLUCOSE METER (BEAKER) (test code = 1538) 161 mg/dL 70-110 H TESTED AT [address] [address] BASIC METABOLIC [id number] 06:04:00* Test Item Value Reference Range Interpretation [...] NOT APPLICABLE FOR DIALYSIS PATIENTS. Specimen markedly [id number] 06:00:00* Test Item Value Reference Range Interpretation Comments MAGNESIUM (BEAKER) (test code = 627) 1.9 mg/dL 1.6-2.6 HEPATIC FUNCTION [id number] 06:00:00* Test Item Value Reference Range Interpretation [...] 347) 170 U/L 6-55 H Specimen markedly [id number] 05:56:00* Test Item Value Reference Range Interpretation Comments PARTIAL THROMBOPLASTIN TIME (BEAKER) (test code = 760) 41.4 seconds 22.5-36.0 H PROTHROMBIN TIME/[id number] 05:55:00* Test Item Value Reference Range Interpretation [...] pat ients with mechanical heart valves.HEMOGLOBIN AND [id number] 05:33:00 * Test Item Value Reference Range Interpretation Comments HEMOGLOBIN (BEAKER) (test code = 410) 7.5 GM/DL 13.7-17.5 L HEMATOCRIT (BEAKER) (test code = 411) 23.3 % 40.1-51.0 L POCT-GLUCOSE [id number] 00:28:00* Test Item Value Reference Range Interpretation Comments POC-GLUCOSE METER (BEAKER) (test code = 1538) 153 mg/dL 70-110 H TESTED AT [address] [address] HEMOGLOBIN AND [id number] 00:15:00* Test Item Value Reference Range Interpretation Comments HEMOGLOBIN (BEAKER) (test code = 410) 6.8 GM/DL 13.7-17.5 L HEMATOCRIT (BEAKER) (test code = 411) 20.6 % 40.1-51.0 L HEMOGLOBIN AND [id number] 20:31:00* Test Item Value Reference Range Interpretation Comments HEMOGLOBIN (BEAKER) (test code = 410) 7.4 GM/DL 13.7-17.5 L HEMATOCRIT (BEAKER) (test code = 411) 22.5 % 40.1-51.0 L HEMOGLOBIN AND [id number] 18:54:00* Test Item Value Reference Range Interpretation Comments HEMOGLOBIN (BEAKER) (test code = 410) 7.4 GM/DL 13.7-17.5 L HEMATOCRIT (BEAKER) (test code = 411) 22.7 % 40.1-51.0 L POCT-GLUCOSE [id number] 18:17:00* Test Item Value Reference Range Interpretation Comments POC-GLUCOSE METER (BEAKER) (test code = 1538) 133 mg/dL 70-110 H TESTED AT [facility] [address] [facility] [address] [id number] 16:32:00* Test Item Value Reference Range Interpretation Comments FIBRINOGEN LEVEL (BEAKER) (test code = 658) 331 mg/dl 225-434 PT/[id number] 15:10:00* Test Item Value Reference Range Interpretation [...] pat ients with mechanical heart valves.HEMOGLOBIN AND [id number] 14:55:00 * Test Item Value Reference Range Interpretation Comments HEMOGLOBIN (BEAKER) (test code = 410) 7.7 GM/DL 13.7-17.5 L HEMATOCRIT (BEAKER) (test code = 411) 24.0 % 40.1-51.0 L CBC W/PLT COUNT & AUTO [id number] 14:09:00* Test Item Value Reference Range Interpretation [...] Received comment: User comments: Slide comments: BLOOD [id number] 14:03:00* Test Item Value Reference Range Interpretation Comments CULTURE (BEAKER) (test code = 1095) No growth in 5 days BLOOD [id number] 14:03:00* Test Item Value Reference Range Interpretation Comments CULTURE (BEAKER) (test code = 1095) No growth in 5 days POCT-GLUCOSE [id number] 11:51:00* Test Item Value Reference Range Interpretation Comments POC-GLUCOSE METER (BEAKER) (test code = 1538) 176 mg/dL 70-110 H TESTED AT [facility] [address] [facility] [address] HEMOGLOBIN AND [id number] 08:23:00* Test Item Value Reference Range Interpretation Comments HEMOGLOBIN (BEAKER) (test code = 410) 6.2 GM/DL 13.7-17.5 L HEMATOCRIT (BEAKER) (test code = 411) 18.9 % 40.1-51.0 L POCT-GLUCOSE [id number] 07:35:00* Test Item Value Reference Range Interpretation Comments POC-GLUCOSE METER (BEAKER) (test code = 1538) 172 mg/dL 70-110 H TESTED AT [place] [id number] [facility] [address] RAD, CHEST, 1 VIEW, NON [id number] 07:26:00Reason for exam:->Pulmonary edema evaluationShould this be [...] MDReport Verified Date/Time: 06/26/2018 07:26:15 Reading Location: [facility] Radiology Reading Room [id number] 05:04:00* Test Item Value Reference Range Interpretation Comments MAGNESIUM (BEAKER) (test code = 627) 1.9 mg/dL 1.6-2.6 BASIC METABOLIC [id number] 05:04:00* Test Item Value Reference Range Interpretation [...] FOR DIALYSIS PATIENTS. Specimen markedly ictericHEPATIC FUNCTION [id number] 05:04:00* Test Item Value Reference Range Interpretation [...] 347) 202 U/L 6-55 H Specimen markedly [id number] 04:54:00* Test Item Value Reference Range Interpretation Comments PARTIAL THROMBOPLASTIN TIME (BEAKER) (test code = 760) 39.3 seconds 22.5-36.0 H PROTHROMBIN TIME/[id number] 04:53:00* Test Item Value Reference Range Interpretation [...] pat ients with mechanical heart valves.HEMOGLOBIN AND [id number] 04:48:00 * Test Item Value Reference Range Interpretation Comments HEMOGLOBIN (BEAKER) (test code = 410) 7.2 GM/DL 13.7-17.5 L HEMATOCRIT (BEAKER) (test code = 411) 22.4 % 40.1-51.0 L HEMOGLOBIN AND [id number] 00:55:00* Test Item Value Reference Range Interpretation Comments HEMOGLOBIN (BEAKER) (test code = 410) 7.9 GM/DL 13.7-17.5 L HEMATOCRIT (BEAKER) (test code = 411) 24.4 % 40.1-51.0 L POCT-GLUCOSE [id number] 00:11:00* Test Item Value Reference Range Interpretation Comments POC-GLUCOSE METER (BEAKER) (test code = 1538) 130 mg/dL 70-110 H TESTED AT [place] [id number] HEMOGLOBIN AND [id number] 21:55:00* Test Item Value Reference Range Interpretation Comments HEMOGLOBIN (BEAKER) (test code = 410) 7.8 GM/DL 13.7-17.5 L HEMATOCRIT (BEAKER) (test code = 411) 24.7 % 40.1-51.0 L HEMOGLOBIN AND [id number] 19:15:00* Test Item Value Reference Range Interpretation Comments HEMOGLOBIN (BEAKER) (test code = 410) 8.2 GM/DL 13.7-17.5 L HEMATOCRIT (BEAKER) (test code = 411) 25.5 % 40.1-51.0 L POCT-GLUCOSE [id number] 18:49:00* Test Item Value Reference Range Interpretation Comments POC-GLUCOSE METER (BEAKER) (test code = 1538) 159 mg/dL 70-110 H TESTED AT [address] [address] POCT-GLUCOSE [id number] 17:29:00* Test Item Value Reference Range Interpretation Comments POC-GLUCOSE METER ([facility]) (test code = 1538) 104 mg/dL 70-110 TESTED AT [facility] [address] [facility] [address] CT, CTA [id number] 14:14:00FINAL REPORT TECHNIQUE: CTA of the abdomen [...] Verified Date/Time: 06/25/2018 14:14:40 Jovani manjarrez Location: [facility] B1 C013Y CT Body Reading Room GLOBIN AND [id number] 12:47:00* Test Item Value Reference Range Interpretation Comments HEMOGLOBIN (BEAKER) (test code = 410) 7.9 GM/DL 13.7-17.5 L HEMATOCRIT (BEAKER) (test code = 411) 24.6 % 40.1-51.0 L POCT-GLUCOSE [id number] 12:19:00* Test Item Value Reference Range Interpretation Comments POC-GLUCOSE METER (BEAKER) (test code = 1538) 161 mg/dL 70-110 H TESTED AT [facility] [address] [facility] [address] CBC W/PLT COUNT & AUTO [id number] 10:47:00* Test Item Value Reference Range Interpretation [...] 40.1-51.0 L RAD, CHEST, 1 VIEW, NON [id number] 07:29:00Reason for exam:->Pulmonary edema evaluationShould this be [...] Sloanepjane Verified Date/Time: 06/25/2018 07:29:59 Reading Location: [facility] Radiology Reading Room [facility] signed by: ANDREW SLOAN M.D. on 06/25/2018 07:29 AM POCT-GLUCOSE METER 2018-06-25 06:28:00* Test Item Value Reference Range Interpretation Comments POC-GLUCOSE METER (BENEETU) (test code = 1538) 174 mg/dL 70-110 H TESTED AT [facility] [address] [facility] [address] [id number] 05:46:00* Test Item Value Reference Range Interpretation Comments PARTIAL THROMBOPLASTIN TIME (BEAKER) (test code = 760) 52.2 seconds 22.5-36.0 H PROTHROMBIN TIME/[id number] 05:44:00* Test Item Value Reference Range Interpretation Comments PROTIME (BEAKER) (test code = 759) 18.3 seconds 11.7-14.7 H INR (BEAKER) (test code = 370) 1.6 <=5.9 RECOMMENDED COUMADIN/WARFARIN INR THERAPY RANGESSTANDARD DOSE: 2.0 - 3.0 Inclu herb: PROPHYLAXIS for venous thrombosis, systemic embolization; TREATMENT for giulia ous thrombosis and/or pulmonary embolus.HIGH RISK: Target INR is 2.5-3.5 for pat ients with mechanical heart valves.[id number] 05:41:00* Test Item Value Reference Range Interpretation Comments MAGNESIUM (BEAKER) (test code = 627) 2.2 mg/dL 1.6-2.6 BASIC METABOLIC [id number] 05:41:00* Test Item Value Reference Range Interpretation [...] FOR DIALYSIS PATIENTS. Specimen markedly ictericHEPATIC FUNCTION [id number] 05:41:00* Test Item Value Reference Range Interpretation [...] 24 U/L 29-20 0 L BLOOD GAS, [id number] 05:35:00* Test Item Value Reference Range Interpretation [...] code = 1819) 40.0 % LACTIC ACID, [id number] 05:32:00* Test Item Value Reference Range Interpretation Comments LACTATE BLOOD ARTERIAL (2) (BEAKER) (test code = 2874) 0.5 mmol/L 0.5-2.2 Specimen markedly ictericPOCT-GLUCOSE [id number] 00:35:00* Test Item Value Reference Range Interpretation Comments POC-GLUCOSE METER (BEAKER) (test code = 1538) 140 mg/dL 70-110 H TESTED AT [address] [address] HEMOGLOBIN AND [id number] 00:32:00* Test Item Value Reference Range Interpretation Comments HEMOGLOBIN (BEAKER) (test code = 410) 8.3 GM/DL 13.7-17.5 L HEMATOCRIT (BEAKER) (test code = 411) 25.6 % 40.1-51.0 L POCT-GLUCOSE [id number] 18:59:00* Test Item Value Reference Range Interpretation Comments POC-GLUCOSE METER (BEAKER) (test code = 1538) 124 mg/dL 70-110 H TESTED AT [address] [address] HEMOGLOBIN AND [id number] 18:36:00* Test Item Value Reference Range Interpretation Comments HEMOGLOBIN (BEAKER) (test code = 410) 8.1 GM/DL 13.7-17.5 L HEMATOCRIT (BEAKER) (test code = 411) 25.1 % 40.1-51.0 L POCT-GLUCOSE [id number] 12:21:00* Test Item Value Reference Range Interpretation Comments POC-GLUCOSE METER (BEAKER) (test code = 1538) 133 mg/dL 70-110 H TESTED AT [facility] [address] [facility] [address] RAD, CHEST, 1 VIEW, NON [id number] 09:38:00Reason for exam:->Pulmonary edema evaluationShould this be performed at the bedside?->YesFINAL REPORT Comparison: 06/23/2018 TECHNIQUE: Single view of the chest FINDINGS: Lung volumes are low. There is mild vascular congestion. No gross new lung parenchymal changes. Support lines and tubes are stable. Signed: Roberth Camp MDReport Verified Date/Time: 06/24/2018 09:38:51 Reading Location: [facility] Radiology Reading Room W/PLT COUNT & AUTO [id number] 09:00:00* Test Item Value Reference Range Interpretation [...] Received comment: User comments: Slide comments: POCT-GLUCOSE [id number] 06:48:00* Test Item Value Reference Range Interpretation Comments POC-GLUCOSE METER (BEAKER) (test code = 1538) 122 mg/dL 70-110 H TESTED AT [facility] [address] [facility] [address] POCT-GLUCOSE [id number] 05:09:00* Test Item Value Reference Range Interpretation Comments POC-GLUCOSE METER (BEAKER) (test code = 1538) 138 mg/dL 70-110 H TESTED AT [place] [id number] [facility] [address] BLOOD GAS, [id number] 04:42:00* Test Item Value Reference Range Interpretation [...] (BEAKER) (test code = 1819) 40.0 % [id number] 04:32:00* Test Item Value Reference Range Interpretation Comments MAGNESIUM (BEAKER) (test code = 627) 2.0 mg/dL 1.6-2.6 BASIC METABOLIC [id number] 04:32:00* Test Item Value Reference Range Interpretation [...] FOR DIALYSIS PATIENTS. Specimen markedly ictericHEPATIC FUNCTION [id number] 04:32:00* Test Item Value Reference Range Interpretation [...] U/L 6-55 H Specimen markedly ictericLACTIC ACID, [id number] 04:22:00* Test Item Value Reference Range Interpretation Comments LACTATE BLOOD ARTERIAL (2) (BEAKER) (test code = 2874) 0.6 mmol/L 0.5-2.2 Specimen moderately [id number] 04:17:00* Test Item Value Reference Range Interpretation Comments PARTIAL THROMBOPLASTIN TIME (BEAKER) (test code = 760) 50.9 seconds 22.5-36.0 H PROTHROMBIN [id number] 04:16:00* Test Item Value Reference Range Interpretation Comments PROTIME (BEAKER) (test code = 759) 18.0 seconds 11.7-14.7 H INR (BEAKER) (test code = 370) 1.6 <=5.9 RECOMMENDED COUMADIN/WARFARIN INR THERAPY RANGESSTANDARD DOSE: 2.0 - 3.0 Inclu herb: PROPHYLAXIS for venous thrombosis, systemic embolization; TREATMENT for giulia ous thrombosis and/or pulmonary embolus.HIGH RISK: Target INR is 2.5-3.5 for pat ients with mechanical heart valves.POCT-GLUCOSE [id number] 00:29:00* Test Item Value Reference Range Interpretation Comments POC-GLUCOSE METER (BEAKER) (test code = 1538) 113 mg/dL 70-110 H TESTED AT [facility] [address] [facility] [address] POCT-GLUCOSE [id number] 18:51:00* Test Item Value Reference Range Interpretation Comments POC-GLUCOSE METER (BEAKER) (test code = 1538) 108 mg/dL 70-110 TESTED AT [place] [id number] [facility] [address] (CELLAVISION MANUAL DIFF)2018-06-23 16:53:00* Test Item Value [...] Slide comments: CBC W/PLT COUNT & AUTO [id number] 16:33:00* Test Item Value Reference Range Interpretation [...] 0-1 H CBC W/PLT COUNT & AUTO [id number] 13:52:00* Test Item Value Reference Range Interpretation [...] Received comment: User comments: Slide comments: POCT-GLUCOSE [id number] 11:56:00* Test Item Value Reference Range Interpretation Comments POC-GLUCOSE METER (BEAKER) (test code = 1538) 115 mg/dL 70-110 H TESTED AT [facility] [address] [facility] [address] [id number] 07:07:00* Test Item Value Reference Range Interpretation Comments MAGNESIUM (BEAKER) (test code = 627) 1.9 mg/dL 1.6-2.6 BASIC METABOLIC [id number] 07:07:00* Test Item Value Reference Range Interpretation [...] FOR DIALYSIS PATIENTS. Specimen markedly ictericHEPATIC FUNCTION [id number] 07:07:00* Test Item Value Reference Range Interpretation [...] U/L 6-55 H Specimen markedly ictericHEMOGLOBIN AND [id number] 06:51:00* Test Item Value Reference Range Interpretation Comments HEMOGLOBIN (BEAKER) (test code = 410) 8.2 GM/DL 13.7-17.5 L HEMATOCRIT (BEAKER) (test code = 411) 25.0 % 40.1-51.0 L POCT-GLUCOSE [id number] 06:44:00* Test Item Value Reference Range Interpretation Comments POC-GLUCOSE METER (BEAKER) (test code = 1538) 121 mg/dL 70-110 H TESTED AT [facility] [address] [facility] [address] LACTIC ACID, [id number] 06:44:00* Test Item Value Reference Range Interpretation Comments LACTATE BLOOD ARTERIAL (2) (BEAKER) (test code = 2874) 0.7 mmol/L 0.5-2.2 Specimen markedly [id number] 06:40:00* Test Item Value Reference Range Interpretation Comments PARTIAL THROMBOPLASTIN TIME (BEAKER) (test code = 760) 44.7 seconds 22.5-36.0 H PROTHROMBIN [id number] 06:39:00* Test Item Value Reference Range Interpretation [...] pat ients with mechanical heart valves.BLOOD GAS, [id number] 06:36:00* Test Item Value Reference Range Interpretation [...] 40.0 % RAD, CHEST, 1 VIEW, NON [id number] 04:52:00Reason for exam:->Pulmonary edema evaluationShould this be [...] MDReport Verified Date/Time: 06/23/2018 04:52:15 Reading Location: [address] Neuro Reading Room U/S, ABDOMINAL, [id number] 03:15:00Abdomen limited area? Add comment if clarification [...] MDReport Verified Date/Time: 06/23/2018 03:15:49 Reading Location: [address] Reading Room GLOBIN AND [id number] 01:05:00* Test Item Value Reference Range Interpretation Comments HEMOGLOBIN (BEAKER) (test code = 410) 8.4 GM/DL 13.7-17.5 L HEMATOCRIT (BEAKER) (test code = 411) 25.9 % 40.1-51.0 L POCT-GLUCOSE [id number] 00:43:00* Test Item Value Reference Range Interpretation Comments POC-GLUCOSE METER (BEAKER) (test code = 1538) 180 mg/dL 70-110 H TESTED AT [address] [address] HEMOGLOBIN AND [id number] 21:03:00* Test Item Value Reference Range Interpretation Comments HEMOGLOBIN (BEAKER) (test code = 410) 8.6 GM/DL 13.7-17.5 L HEMATOCRIT (BEAKER) (test code = 411) 25.8 % 40.1-51.0 L POCT-GLUCOSE [id number] 18:20:00* Test Item Value Reference Range Interpretation Comments POC-GLUCOSE METER (BEAKER) (test code = 1538) 265 mg/dL 70-110 H TESTED AT [address] [address] HEMOGLOBIN AND [id number] 12:41:00* Test Item Value Reference Range Interpretation Comments HEMOGLOBIN (BEAKER) (test code = 410) 7.6 GM/DL 13.7-17.5 L HEMATOCRIT (BEAKER) (test code = 411) 23.4 % 40.1-51.0 L POCT-GLUCOSE [id number] 12:29:00* Test Item Value Reference Range Interpretation Comments POC-GLUCOSE METER (BEAKER) (test code = 1538) 150 mg/dL 70-110 H TESTED AT [place] [id number] RAD, CHEST, 1 VIEW, NON [id number] 08:40:00Reason for exam:->Pulmonary edema evaluationShould this be [...] MDReport Verified Date/Time: 06/22/2018 08:40:31 Reading Location: [address] Transitional Reading Room - GLUCOSE [id number] 06:33:00* Test Item Value Reference Range Interpretation Comments POC-GLUCOSE METER (BEAKER) (test code = 1538) 159 mg/dL 70-110 H TESTED AT [facility] [address] [place] [address] LACTIC ACID, [id number] 04:16:00* Test Item Value Reference Range Interpretation Comments LACTATE BLOOD ARTERIAL (2) (BEAKER) (test code = 2874) 0.5 mmol/L 0.5-2.2 Specimen markedly ictericBASIC METABOLIC [id number] 04:12:00* Test Item Value Reference Range Interpretation [...] APPLICABLE FOR DIALYSIS PATIENTS. Specimen markedly ictericCALCIUM, [id number] 04:10:00* Test Item Value Reference Range Interpretation Comments CALCIUM IONIZED (BEAKER) (test code = 698) 1.28 mmol/L 1.12-1.27 H PH, BLOOD (BEAKER) (test code = 1810) 7.41 Check serum Ionized Calcium level after 4 hours after IV Calcium replacement. BLOOD GAS, [id number] 04:05:00* Test Item Value Reference Range Interpretation [...] 40.0 % CBC W/PLT COUNT & AUTO [id number] 04:02:00* Test Item Value Reference Range Interpretation [...] code = 2801) 4 % 0-1 H [id number] 03:56:00* Test Item Value Reference Range Interpretation Comments MAGNESIUM (BEAKER) (test code = 627) 2.0 mg/dL 1.6-2.6 HEPATIC FUNCTION [id number] 03:56:00* Test Item Value Reference Range Interpretation [...] 347) 136 U/L 6-55 H Specimen markedly [id number] 03:53:00* Test Item Value Reference Range Interpretation Comments PARTIAL THROMBOPLASTIN TIME (BEAKER) (test code = 760) 40.4 seconds 22.5-36.0 H PROTHROMBIN TIME/[id number] 03:52:00* Test Item Value Reference Range Interpretation [...] pat ients with mechanical heart valves.HEMOGLOBIN AND [id number] 03:41:00 * Test Item Value Reference Range Interpretation Comments HEMOGLOBIN (BEAKER) (test code = 410) 8.1 GM/DL 13.7-17.5 L HEMATOCRIT (BEAKER) (test code = 411) 24.4 % 40.1-51.0 L BLOOD [id number] 01:25:00* Test Item Value Reference Range Interpretation Comments CULTURE (BEAKER) (test code = 1095) No growth in 5 days BLOOD [id number] 01:25:00* Test Item Value Reference Range Interpretation Comments CULTURE (BEAKER) (test code = 1095) No growth in 5 days HEMOGLOBIN AND [id number] 00:32:00* Test Item Value Reference Range Interpretation Comments HEMOGLOBIN (BEAKER) (test code = 410) 9.1 GM/DL 13.7-17.5 L HEMATOCRIT (BEAKER) (test code = 411) 27.2 % 40.1-51.0 L POCT-GLUCOSE [id number] 00:18:00* Test Item Value Reference Range Interpretation Comments POC-GLUCOSE METER (BEAKER) (test code = 1538) 189 mg/dL 70-110 H TESTED AT [facility] [address] [facility] [address] ANG, VISCERAL [id number] 22:13:00FINAL REPORT Mesenteric Arteriography Clinical History:GI bleed [...] inch guide wire was advanced. A 5 Syrian sheath was util ized. A 5 omani Baker catheter was placed selectively into the [...] Rogel Verified Date/Time: 06/21/2018 22:13:37 Reading Location: [address] Reading Room Electronically signed by: KAI ROGEL M.D. on 05/28 10:13 PM RAD, ABDOMEN/KUB, 1 VIEW [id number] 20:57:00Reason for exam:-> abdominal distention sp coilsFINAL [...] MDReport Verified Date/Time: 06/21/2018 20:57:09 Reading Location: [address] Consult Reading Room W/PLT COUNT & AUTO [id number] 18:35:00* Test Item Value Reference Range Interpretation [...] Received comment: User comments: Slide comments: POCT-GLUCOSE [id number] 17:53:00* Test Item Value Reference Range Interpretation Comments POC-GLUCOSE METER (BEAKER) (test code = 1538) 212 mg/dL 70-110 H TESTED AT [facility] [address] [facility] [address] BASIC METABOLIC [id number] 17:52:00* Test Item Value Reference Range Interpretation [...] FOR DIALYSIS PATIENTS. Specimen markedly ictericLACTIC ACID, [id number] 17:45:00* Test Item Value Reference Range Interpretation Comments LACTATE BLOOD ARTERIAL (2) (BEAKER) (test code = 2874) 0.6 mmol/L 0.5-2.2 Specimen markedly ictericHEMOGLOBIN AND [id number] 17:32:00* Test Item Value Reference Range Interpretation Comments HEMOGLOBIN (BEAKER) (test code = 410) 7.4 GM/DL 13.7-17.5 L HEMATOCRIT (BEAKER) (test code = 411) 22.4 % 40.1-51.0 L BLOOD GAS, [id number] 17:25:00* Test Item Value Reference Range Interpretation [...] 0.0-5.0 H RAD, CHEST, 1 VIEW, NON [id number] 14:14:00Reason for exam:->line placementShould this be performed [...] MDReport Verified Date/Time: 06/21/2018 14:14:23 Reading Location: [address] Consult Reading Room GLOBIN AND [id number] 14:12:00* Test Item Value Reference Range Interpretation Comments HEMOGLOBIN (BEAKER) (test code = 410) 6.3 GM/DL 13.7-17.5 L HEMATOCRIT (BEAKER) (test code = 411) 19.7 % 40.1-51.0 L PROTHROMBIN [id number] 14:10:00* Test Item Value Reference Range Interpretation Comments PROTIME (BEAKER) (test code = 759) 18.5 seconds 11.7-14.7 H INR (BEAKER) (test code = 370) 1.5 <=5.9 RECOMMENDED COUMADIN/WARFARIN INR THERAPY RANGESSTANDARD DOSE: 2.0 - 3.0 Inclu herb: PROPHYLAXIS for venous thrombosis, systemic embolization; TREATMENT for giulia ous thrombosis and/or pulmonary embolus.HIGH RISK: Target INR is 2.5-3.5 for pat ients with mechanical heart valves.[id number] 14:10:00* Test Item Value Reference Range Interpretation Comments FIBRINOGEN LEVEL (BEAKER) (test code = 658) 405 mg/dl 225-434 [id number] 14:10:00* Test Item Value Reference Range Interpretation Comments PARTIAL THROMBOPLASTIN TIME (BEAKER) (test code = 760) 43.9 seconds 22.5-36.0 H LACTIC ACID, [id number] 13:57:00* Test Item Value Reference Range Interpretation Comments LACTATE BLOOD ARTERIAL (2) (BEAKER) (test code = 2874) 0.8 mmol/L 0.5-2.2 Specimen markedly ictericPLATELET [id number] 13:47:00* Test Item Value Reference Range Interpretation Comments PLATELET COUNT (BEAKER) (test code = 756) 347 K/CU MM 150-450 CALCIUM, [id number] 13:46:00* Test Item Value Reference Range Interpretation Comments CALCIUM IONIZED (BEAKER) (test code = 698) 1.03 mmol/L 1.12-1.27 L PH, BLOOD (BEAKER) (test code = 1810) 7.40 POTASSIUM-STAT [id number] 13:45:00* Test Item Value Reference Range Interpretation Comments POTASSIUM (BEAKER) (test code = 379) 3.3 meq/L 3.6-5.5 L GLUCOSE-STAT [id number] 13:45:00* Test Item Value Reference Range Interpretation Comments GLUCOSE RANDOM (BEAKER) (test code = 652) 213 mg/dL 70-110 H HGB/HCT (H&H) - STAT [id number] 13:45:00* Test Item Value Reference Range Interpretation Comments HEMOGLOBIN (BEAKER) (test code = 410) 6.4 g/dL 13.0-16.8 L HEMATOCRIT (BEAKER) (test code = 411) 19.0 % 40.0-50.0 L BLOOD GAS, [id number] 13:45:00* Test Item Value Reference Range Interpretation [...] code = 1819) 40.0 % SODIUM NA-STAT [id number] 13:44:00* Test Item Value Reference Range Interpretation Comments SODIUM (BEAKER) (test code = 381) 142 meq/L 135-148 [id number] 12:39:00* Test Item Value Reference Range Interpretation Comments PROCALCITONIN (BEAKER) (test code = 3036) 3.47 ng/mL <0.05 H SEPSIS RISK (ng/mL)Low: 0.05-0.50Intermediate: 0.51-2.00High: > =2.01POCT-GLUCOSE [id number] 12:37:00* Test Item Value Reference Range Interpretation Comments POC-GLUCOSE METER (BEAKER) (test code = 1538) 242 mg/dL 70-110 H TESTED AT [facility] [address] [facility] [address] LACTIC ACID, [id number] 12:37:00* Test Item Value Reference Range Interpretation Comments LACTATE BLOOD ARTERIAL (2) (BEAKER) (test code = 2874) 1.0 mmol/L 0.5-2.2 Specimen markedly ictericBLOOD GAS, [id number] 12:23:00* Test Item Value Reference Range Interpretation [...] code = 1819) 40.0 % HEMOGLOBIN AND [id number] 11:40:00* Test Item Value Reference Range Interpretation Comments HEMOGLOBIN (BEAKER) (test code = 410) 7.3 GM/DL 13.7-17.5 L HEMATOCRIT (BEAKER) (test code = 411) 22.6 % 40.1-51.0 L URINALYSIS W/ REFLEX URINE [id number] 11:19:00* Test Item Value Reference Range Interpretation [...] SOURCE(BEAKER) (test code = 2795) OXYGEN SATURATION, [id number] 11:10:00* Test Item Value Reference Range Interpretation Comments O2 SATURATION (MEASURED) (BEAKER) (test code = 1455) 63.5 % POCT-GLUCOSE [id number] 09:37:00* Test Item Value Reference Range Interpretation Comments POC-GLUCOSE METER (BEAKER) (test code = 1538) 258 mg/dL 70-110 H TESTED AT [facility] [address] [place] [address] CBC W/PLT COUNT & AUTO [id number] 08:40:00* Test Item Value Reference Range Interpretation [...] [facility] Reading Room TIC FUNCTION [id number] 04:40:00* Test Item Value Reference Range Interpretation [...] U/L 6-55 H Specimen markedly ictericBASIC METABOLIC [id number] 04:40:00* Test Item Value Reference Range Interpretation [...] NOT APPLICABLE FOR DIALYSIS PATIENTS. Specimen markedly [id number] 04:26:00* Test Item Value Reference Range Interpretation Comments MAGNESIUM (BEAKER) (test code = 627) 2.1 mg/dL 1.6-2.6 LACTIC ACID, [id number] 04:17:00* Test Item Value Reference Range Interpretation Comments LACTATE BLOOD ARTERIAL (2) (BEAKER) (test code = 2874) 1.0 mmol/L 0.5-2.2 Specimen markedly [id number] 04:12:00* Test Item Value Reference Range Interpretation Comments PARTIAL THROMBOPLASTIN TIME (BEAKER) (test code = 760) 47.7 seconds 22.5-36.0 H PROTHROMBIN [id number] 04:11:00* Test Item Value Reference Range Interpretation [...] pat ients with mechanical heart valves.BLOOD GAS, [id number] 03:57:00* Test Item Value Reference Range Interpretation [...] (BEAKER) (test code = 1819) 40.0 % [id number] 01:01:00* Test Item Value Reference Range Interpretation Comments POTASSIUM (BEAKER) (test code = 379) 3.4 meq/L 3.5-5.1 L PRN - repeat glucose levels every 1 hour or as specified by insulin titration or ders until glucose level is less than 450 mg/dLCheck Serum Potassium level 2 roxy rs after oral potassium replacement completed or 30 min after intravenous potass ium replacement.[id number] 01:01:00* Test Item Value Reference Range Interpretation Comments MAGNESIUM (BEAKER) (test code = 627) 2.0 mg/dL 1.6-2.6 PRN - repeat glucose levels every 1 hour or as specified by insulin titration or ders until glucose level is less than 450 mg/dLCheck Serum Potassium level 2 roxy rs after oral potassium replacement completed or 30 min after intravenous potass ium replacement.[id number] 01:01:00* Test Item Value Reference Range Interpretation Comments GLUCOSE RANDOM (BEAKER) (test code = 652) 220 mg/dL 70-105 H PRN - repeat glucose levels every 1 hour or as specified by insulin titration or ders until glucose level is less than 450 mg/dLCheck Serum Potassium level 2 roxy rs after oral potassium replacement completed or 30 min after intravenous potass ium replacement.CALCIUM, [id number] 00:47:00* Test Item Value Reference Range Interpretation Comments CALCIUM IONIZED (BEAKER) (test code = 698) 1.05 mmol/L 1.12-1.27 L PH, BLOOD (BEAKER) (test code = 1810) 7.48 Check serum Ionized Calcium level after 4 hours after IV Calcium replacement. BLOOD GAS, [id number] 21:09:00* Test Item Value Reference Range Interpretation [...] code = 1819) 40.0 % Before ventPOCT-GLUCOSE [id number] 17:55:00* Test Item Value Reference Range Interpretation Comments POC-GLUCOSE METER (BEAKER) (test code = 1538) 254 mg/dL 70-110 H TESTED AT [facility] [address] [facility] [address] BASIC METABOLIC [id number] 17:37:00* Test Item Value Reference Range Interpretation [...] FOR DIALYSIS PATIENTS. Specimen markedly ictericHEMOGLOBIN AND [id number] 17:18:00* Test Item Value Reference Range Interpretation Comments HEMOGLOBIN (BEAKER) (test code = 410) 8.2 GM/DL 13.7-17.5 L HEMATOCRIT (BEAKER) (test code = 411) 24.9 % 40.1-51.0 L CALCIUM, [id number] 17:14:00* Test Item Value Reference Range Interpretation Comments CALCIUM IONIZED (BEAKER) (test code = 698) 1.04 mmol/L 1.12-1.27 L PH, BLOOD (BEAKER) (test code = 1810) 7.49 Check serum Ionized Calcium level after 4 hours after IV Calcium replacement. POCT-GLUCOSE [id number] 17:00:00* Test Item Value Reference Range Interpretation Comments POC-GLUCOSE METER (BEAKER) (test code = 1538) 238 mg/dL 70-110 H TESTED AT [facility] [address] [facility] [address] POCT-GLUCOSE [id number] 11:59:00* Test Item Value Reference Range Interpretation Comments POC-GLUCOSE METER (BEAKER) (test code = 1538) 199 mg/dL 70-110 H TESTED AT [facility] [address] [facility] [address] BASIC METABOLIC [id number] 10:07:00* Test Item Value Reference Range Interpretation [...] FOR DIALYSIS PATIENTS. Specimen markedly ictericHEMOGLOBIN AND [id number] 09:56:00* Test Item Value Reference Range Interpretation Comments HEMOGLOBIN (BEAKER) (test code = 410) 8.2 GM/DL 13.7-17.5 L HEMATOCRIT (BEAKER) (test code = 411) 24.9 % 40.1-51.0 L SPUTUM CULTURE + GRAM [id number] 09:21:00* Test Item Value Reference Range Interpretation Comments CULTURE (BEAKER) (test code = 1095) <1+ Normal respiratory chase pr esent GRAM STAIN RESULT (BEAKER) (test code = 1123) <1+ WBCs GRAM STAIN RESULT (BEAKER) (test code = 20318) 0-5 epithelial cells GRAM STAIN RESULT (BEAKER) (test code = 64035) No organisms seen CBC W/PLT COUNT & AUTO [id number] 08:52:00* Test Item Value Reference Range Interpretation [...] quate Received comment: User comments: Slide comments: [id number] 08:27:00* Test Item Value Reference Range Interpretation Comments T3 TOTAL (BEAKER) (test code = 656) 55 ng/dL 48-159 CALCIUM, [id number] 05:17:00* Test Item Value Reference Range Interpretation Comments CALCIUM IONIZED (BEAKER) (test code = 698) 1.01 mmol/L 1.12-1.27 L PH, BLOOD (BEAKER) (test code = 1810) 7.43 HEPATIC FUNCTION [id number] 05:05:00* Test Item Value Reference Range Interpretation [...] U/L 6-55 H Specimen markedly ictericBASIC METABOLIC [id number] 05:05:00* Test Item Value Reference Range Interpretation [...] NOT APPLICABLE FOR DIALYSIS PATIENTS. Specimen markedly [id number] 05:04:00* Test Item Value Reference Range Interpretation Comments MAGNESIUM (BEAKER) (test code = 627) 2.2 mg/dL 1.6-2.6 RAD, CHEST, 1 VIEW, NON [id number] 04:59:00Reason for exam:->Pulmonary edema evaluationShould this be [...] Avendañoeport Verified Date/Time: 06/20/2018 04:59:55 Reading Location: [address] Neuro Reading Room [id number] 04:44:00* Test Item Value Reference Range Interpretation Comments PARTIAL THROMBOPLASTIN TIME (BEAKER) (test code = 760) 45.0 seconds 22.5-36.0 H PROTHROMBIN [id number] 04:43:00* Test Item Value Reference Range Interpretation [...] pat ients with mechanical heart valves.LACTIC ACID, [id number] 04:41:00* Test Item Value Reference Range Interpretation Comments LACTATE BLOOD ARTERIAL (2) (BEAKER) (test code = 2874) 0.6 mmol/L 0.5-2.2 Specimen markedly ictericBLOOD GAS, [id number] 04:29:00* Test Item Value Reference Range Interpretation [...] code = 1819) 40.0 % BASIC METABOLIC [id number] 01:12:00* Test Item Value Reference Range Interpretation [...] FOR DIALYSIS PATIENTS. Specimen markedly ictericHEMOGLOBIN AND [id number] 00:24:00* Test Item Value Reference Range Interpretation Comments HEMOGLOBIN (BEAKER) (test code = 410) 8.3 GM/DL 13.7-17.5 L HEMATOCRIT (BEAKER) (test code = 411) 25.0 % 40.1-51.0 L POCT-GLUCOSE [id number] 00:18:00* Test Item Value Reference Range Interpretation Comments POC-GLUCOSE METER (BEAKER) (test code = 1538) 233 mg/dL 70-110 H TESTED AT [facility] [address] [facility] [address] HEMOGLOBIN AND [id number] 20:18:00* Test Item Value Reference Range Interpretation Comments HEMOGLOBIN (BEAKER) (test code = 410) 8.4 GM/DL 13.7-17.5 L HEMATOCRIT (BEAKER) (test code = 411) 25.0 % 40.1-51.0 L BASIC METABOLIC [id number] 19:06:00* Test Item Value Reference Range Interpretation [...] FOR DIALYSIS PATIENTS. Specimen markedly ictericBASIC METABOLIC [id number] 19:06:00* Test Item Value Reference Range Interpretation [...] FOR DIALYSIS PATIENTS. Specimen markedly ictericHEMOGLOBIN AND [id number] 18:48:00* Test Item Value Reference Range Interpretation Comments HEMOGLOBIN (BEAKER) (test code = 410) 8.3 GM/DL 13.7-17.5 L HEMATOCRIT (BEAKER) (test code = 411) 25.7 % 40.1-51.0 L POCT-GLUCOSE [id number] 17:33:00* Test Item Value Reference Range Interpretation Comments POC-GLUCOSE METER (BEAKER) (test code = 1538) 193 mg/dL 70-110 H TESTED AT [address] [place] [address] CYTOMEGALOVIRUS ANTIBODY, [id number] 14:16:00* Test Item Value Reference Range Interpretation Comments CYTOMEGALOVIRUS, IGG (GAURAVAKER) (test code = 3429) Negative Negat mumtaz, Equivocal CMV IgG Result Interpretation: </= 0.8 Al Negative 0.9-1.0 Al Equivocal > /=1.1 Al PositiveCYTOMEGALOVIRUS ANTIBODY, [id number] 14:16:00* Test Item Value Reference Range Interpretation Comments CYTOMEGALOVIRUS IGM ANTIBODY (BEAKER) (test code = 3437) Neg ative Negative, Equivocal CMV IgM Result Interpretation: </= 0.8 Al Negative 0.9-1.0 Al Equivocal > /= 1.1 Al PositiveEBV ANTIBODY, [id number] 14:16:00* Test Item Value Reference Range Interpretation Comments ALEX MAE VIRAL CAPSID ANTIGEN IGG (GAURAVAKER) (test code = 3415) Positive Negative, Equivocal A Alex Mae Viral Capsid Antigen IgG Result Interpretation: </= 0.8 Al Negative 0.9-1.0 Al Equivocal >/= 1.1 Al PositiveEBV ANTIBODY, [id number] 14:16:00* Test Item Value Reference Range Interpretation Comments ALEX MAE VIRAL CAPSID ANTIGEN IGM (GAURAVAKER) (test code [...] = 411) 26.4 % 40.1-51.0 L POCT-GLUCOSE [id number] 12:45:00* Test Item Value Reference Range Interpretation Comments POC-GLUCOSE METER (BEAKER) (test code = 1538) 204 mg/dL 70-110 H TESTED AT [place] [id number] [facility] [address] CBC W/PLT COUNT & AUTO [id number] 11:32:00* Test Item Value Reference Range Interpretation [...] manually reviewed rbc morp hology on the [id number] 11:25:00* Test Item Value Reference Range Interpretation Comments RPR SCREEN (BEAKER) (test code = 420) Nonreactive Nonreactive [id number] 11:23:00* Test Item Value Reference Range Interpretation Comments AMMONIA (BEAKER) (test code = 348) 62 mol/L 18-72 HEMOGLOBIN AND [id number] 10:37:00* Test Item Value Reference Range Interpretation Comments HEMOGLOBIN (BEAKER) (test code = 410) 7.9 GM/DL 13.7-17.5 L HEMATOCRIT (BEAKER) (test code = 411) 24.4 % 40.1-51.0 L BASIC METABOLIC [id number] 09:29:00* Test Item Value Reference Range Interpretation [...] APPLICABLE FOR DIALYSIS PATIENTS. Specimen markedly ictericPOCT-GLUCOSE [id number] 08:36:00* Test Item Value Reference Range Interpretation Comments POC-GLUCOSE METER (BEAKER) (test code = 1538) 211 mg/dL 70-110 H TESTED AT [facility] [address] [facility] [address] RAD, CHEST, 1 VIEW, NON [id number] 07:24:00Reason for exam:->Pulmonary edema evaluationShould this be [...] MDReport Verified Date/Time: 06/19/2018 07:24:06 Reading Location: [address] Neuro Reading Room Electronically signed by: OMERO MOURA M.D. on 07:24 AM [id number] 05:40:00* Test Item Value Reference Range Interpretation Comments PARTIAL THROMBOPLASTIN TIME (BEAKER) (test code = 760) 44.4 seconds 22.5-36.0 H PROTHROMBIN [id number] 05:39:00* Test Item Value Reference Range Interpretation [...] pat ients with mechanical heart valves.HEPATIC FUNCTION [id number] 05:17:00* Test Item Value Reference Range Interpretation [...] U/L 6-55 H Specimen markedly ictericBASIC METABOLIC [id number] 05:17:00* Test Item Value Reference Range Interpretation [...] NOT APPLICABLE FOR DIALYSIS PATIENTS. Specimen markedly [id number] 05:13:00* Test Item Value Reference Range Interpretation Comments PHOSPHORUS (BEAKER) (test code = 604) 5.3 mg/dL 2.3-4.7 H [id number] 05:13:00* Test Item Value Reference Range Interpretation Comments MAGNESIUM (BEAKER) (test code = 627) 2.2 mg/dL 1.6-2.6 LACTIC ACID, [id number] 04:57:00* Test Item Value Reference Range Interpretation Comments LACTATE BLOOD ARTERIAL (2) (BEAKER) (test code = 2874) 0.7 mmol/L 0.5-2.2 Specimen markedly ictericCALCIUM, [id number] 04:46:00* Test Item Value Reference Range Interpretation Comments CALCIUM IONIZED (BEAKER) (test code = 698) 1.07 mmol/L 1.12-1.27 L PH, BLOOD (BEAKER) (test code = 1810) 7.47 BLOOD GAS, [id number] 04:46:00* Test Item Value Reference Range Interpretation [...] code = 1819) 40.0 % OCCULT BLOOD, [id number] 01:25:00* Test Item Value Reference Range Interpretation Comments FECAL OCCULT BLOOD (BEAKER) (test code = 618) Positive Negative A BASIC METABOLIC [id number] 23:56:00* Test Item Value Reference Range Interpretation [...] APPLICABLE FOR DIALYSIS PATIENTS. Specimen markedly ictericCALCIUM, [id number] 23:54:00* Test Item Value Reference Range Interpretation Comments CALCIUM IONIZED (BEAKER) (test code = 698) 1.11 mmol/L 1.12-1.27 L PH, BLOOD (BEAKER) (test code = 1810) 7.46 Check serum Ionized Calcium level after 4 hours after IV Calcium replacement. HEMOGLOBIN AND [id number] 23:37:00* Test Item Value Reference Range Interpretation Comments HEMOGLOBIN (BEAKER) (test code = 410) 7.0 GM/DL 13.7-17.5 L HEMATOCRIT (BEAKER) (test code = 411) 22.2 % 40.1-51.0 L POCT-GLUCOSE [id number] 23:36:00* Test Item Value Reference Range Interpretation Comments POC-GLUCOSE METER (BEAKER) (test code = 1538) 161 mg/dL 70-110 H TESTED AT [facility] [address] [facility] [address] HEMOGLOBIN AND [id number] 20:42:00* Test Item Value Reference Range Interpretation Comments HEMOGLOBIN (BEAKER) (test code = 410) 7.2 GM/DL 13.7-17.5 L HEMATOCRIT (BEAKER) (test code = 411) 22.3 % 40.1-51.0 L CBC W/PLT COUNT & AUTO [id number] 18:06:00* Test Item Value Reference Range Interpretation [...] Received comment: User comments: Slide comments: POCT-GLUCOSE [id number] 17:33:00* Test Item Value Reference Range Interpretation Comments POC-GLUCOSE METER (BEAKER) (test code = 1538) 196 mg/dL 70-110 H TESTED AT [facility] [address] [facility] [address] BASIC METABOLIC [id number] 17:24:00* Test Item Value Reference Range Interpretation [...] NOT APPLICABLE FOR DIALYSIS PATIENTS. Specimen markedly [id number] 14:47:00* Test Item Value Reference Range Interpretation Comments T4 TOTAL (BEAKER) (test code = 895) 8.1 ug/dL 4.9-11.7 CRYPTOCOCCAL [id number] 14:31:00* Test Item Value Reference Range Interpretation Comments CRYPTOCOCCAL ANTIGEN, SERUM (BEAKER) (test code = 1828) Nega tive Negative, Interference [id number] 14:20:00* Test Item Value Reference Range Interpretation Comments FERRITIN (BEAKER) (test code = 361) 2332 ng/mL 5-275 H LIPID [id number] 14:07:00* Test Item Value Reference Range Interpretation [...] High 160-189 Very High >=190 Specimen markedly [id number] 13:01:00* Test Item Value Reference Range Interpretation Comments PROSTATE SPECIFIC ANTIGEN (BEAKER) (test code = 844) 0.5 ng/mL 0 .0-4.0 HIV-1 ANTIGEN WITH HIV-1/2 [id number] 13:01:00* Test Item Value Reference Range Interpretation Comments HIV-1 ANTIGEN WITH HIV 1\\T\\2 ANTIBODY (2) (BEAKER) (te st code = 2586) Nonreactive Nonreactive CARCINOEMBRYONIC ANTIGEN (CEA)2018-06-18 13:01:00* Test Item Value Reference Range Interpretation Comments CARCINOEMBRYONIC ANTIGEN (BEAKER) (test code = 685) 16.6 ng/mL 0. 0-5.0 H VITAMIN D, 46-[id number] 13:01:00* Test Item Value Reference Range Interpretation Comments VITAMIN D 25-OH (BEAKER) (test code = 2764) 14.7 ng/mL 6.6-49.9 Effective 12/06/2016: Reference Range ChangeNew: 6.6-49.9 ng/mL Previous: 13.0 -47.8 ng/mLRecommended Vitamin D Target Range: 30.0-40.0 ng/mLPOCT-GLUCOSE METER 2018-06-18 12:53:00* Test Item Value Reference Range Interpretation Comments POC-GLUCOSE METER (BEAKER) (test code = 1538) 239 mg/dL 70-110 H TESTED AT [facility] [address] [facility] [address] [id number] 12:43:00* Test Item Value Reference Range Interpretation Comments TRANSFERRIN (BEAKER) (test code = 541) 112 mg/dL 174-382 L Specimen markedly ictericURIC [id number] 12:42:00* Test Item Value Reference Range Interpretation Comments URIC ACID (BEAKER) (test code = 773) 15.6 mg/dL 2.6-7.2 H Specimen markedly ictericGAMMA GLUTAMYL TRANSFERASE (GGT)2018-06-18 12:42:00* Test Item Value Reference Range Interpretation Comments GAMMA GLUTAMYL TRANSFERASE (BEAKER) (test code = 364) 125 U/L 9-64 H Specimen markedly [id number] 12:40:00* Test Item Value Reference Range Interpretation Comments ETHANOL (BEAKER) (test code = 400) < mg/dL <=10 [id number] 12:35:00* Test Item Value Reference Range Interpretation Comments FIBRINOGEN LEVEL (BEAKER) (test code = 658) 811 mg/dl 225-434 H BLOOD [id number] 11:56:00* Test Item Value Reference Range Interpretation Comments CULTURE (BEAKER) (test code = 1095) No growth in 5 days BLOOD [id number] 11:56:00* Test Item Value Reference Range Interpretation Comments CULTURE (BEAKER) (test code = 1095) No growth in 5 days CALCIUM, [id number] 11:40:00* Test Item Value Reference Range Interpretation Comments CALCIUM IONIZED (BEAKER) (test code = 698) 1.12 mmol/L 1.12-1.27 PH, BLOOD (BEAKER) (test code = 1810) 7.49 CBC W/PLT COUNT & AUTO [id number] 08:56:00* Test Item Value Reference Range Interpretation [...] WBC: SEGMENTED WITH TOXIG GRANU LATION PRESENT [id number] 08:54:00* Test Item Value Reference Range Interpretation Comments MAGNESIUM (BEAKER) (test code = 627) 2.3 mg/dL 1.6-2.6 BASIC METABOLIC [id number] 08:54:00* Test Item Value Reference Range Interpretation [...] APPLICABLE FOR DIALYSIS PATIENTS. Specimen markedly ictericPOCT-GLUCOSE [id number] 08:29:00* Test Item Value Reference Range Interpretation Comments POC-GLUCOSE METER (BEAKER) (test code = 1538) 223 mg/dL 70-110 H TESTED AT [facility] [address] [facility] [address] RAD, CHEST, 1 VIEW, NON [id number] 04:54:00Reason for exam:->Pulmonary edema evaluationShould this be [...] Verified D ate/Time: 06/18/2018 04:54:27 Reading Location: [facility] C013Y CT Body Reading Ro om D GAS, [id number] 04:39:00* Test Item Value Reference Range Interpretation [...] code = 1819) 40.0 % HEPATIC FUNCTION [id number] 04:35:00* Test Item Value Reference Range Interpretation [...] 347) 138 U/L 6-55 H Specimen markedly [id number] 04:34:00* Test Item Value Reference Range Interpretation Comments MAGNESIUM (BEAKER) (test code = 627) 2.5 mg/dL 1.6-2.6 BASIC METABOLIC [id number] 04:34:00* Test Item Value Reference Range Interpretation [...] code = 380) 50 U/L 29-20 0 [id number] 04:23:00* Test Item Value Reference Range Interpretation Comments PARTIAL THROMBOPLASTIN TIME (BEAKER) (test code = 760) 49.4 seconds 22.5-36.0 H PROTHROMBIN TIME/[id number] 04:22:00* Test Item Value Reference Range Interpretation [...] pat ients with mechanical heart valves.LACTIC ACID, [id number] 04:17:00* Test Item Value Reference Range Interpretation Comments LACTATE BLOOD ARTERIAL (2) (BEAKER) (test code = 2874) 1.3 mmol/L 0.5-2.2 Specimen markedly [id number] 00:59:00* Test Item Value Reference Range Interpretation Comments MAGNESIUM (BEAKER) (test code = 627) 2.1 mg/dL 1.6-2.6 BASIC METABOLIC [id number] 00:59:00* Test Item Value Reference Range Interpretation [...] APPLICABLE FOR DIALYSIS PATIENTS. Specimen markedly ictericPOCT-GLUCOSE [id number] 00:20:00* Test Item Value Reference Range Interpretation Comments POC-GLUCOSE METER (BEAKER) (test code = 1538) 155 mg/dL 70-110 H TESTED AT [facility] [address] [facility] [address] POCT-GLUCOSE [id number] 18:09:00* Test Item Value Reference Range Interpretation Comments POC-GLUCOSE METER (BEAKER) (test code = 1538) 187 mg/dL 70-110 H TESTED AT [facility] [address] [facility] [address] BASIC METABOLIC [id number] 16:09:00* Test Item Value Reference Range Interpretation [...] APPLICABLE FOR DIALYSIS PATIENTS. Specimen markedly ictericPOCT-GLUCOSE [id number] 12:03:00* Test Item Value Reference Range Interpretation Comments POC-GLUCOSE METER (BEAKER) (test code = 1538) 212 mg/dL 70-110 H TESTED AT [place] [id number] [facility] [address] [id number] 11:52:00* Test Item Value Reference Range Interpretation Comments MAGNESIUM (BEAKER) (test code = 627) 2.0 mg/dL 1.6-2.6 BASIC METABOLIC [id number] 11:52:00* Test Item Value Reference Range Interpretation [...] Specimen markedly ictericPERIPHERAL BLOOD SMEAR - PATHOLOGIST [id number] 08:37:00* Test Item Value Reference Range Interpretation Comments PERIPHERAL SMR REVIEW ([facility]) (test code = 2640) Left shifted granulocytes with toxic changes. No circulating blasts. No significantly increased schistocytes. [id number] ([facility]) (test code = 2849) Raul Arenas M.D.(electronic signature) RAD, CHEST, 1 VIEW, NON [id number] 08:15:00Reason for exam:->Pulmonary edema evaluationShould this be performed at the bedside?->YesFINAL REPORT Chest, one view. HISTORY: Pulmonary edema evaluation COMPARISON: Radiograph from 06/16/2018 IMPRESSION: Unchanged positioning of support lines and tubes. The interstitial edema is unchanged. No pleural effusion or pneumothorax. The cardiac silhouette is unchanged. No acute bony abnormality. Signed: Kyle Rae MDReport Verified Date/Time: 06/17/2018 08:15:08 Reading Location: [facility] Radiology Reading Room LT BLOOD, [id number] 07:04:00* Test Item Value Reference Range Interpretation Comments FECAL OCCULT BLOOD ([facility]) (test code = 618) Negative Negative POCT-GLUCOSE [id number] 06:28:00* Test Item Value Reference Range Interpretation Comments POC-GLUCOSE METER ([facility]) (test code = 1538) 209 mg/dL 70-110 H TESTED AT [facility] [address] [facility] [address] [id number] 05:05:00* Test Item Value Reference Range Interpretation Comments PARTIAL THROMBOPLASTIN TIME (BEAKER) (test code = 760) 51.6 seconds 22.5-36.0 H PROTHROMBIN TIME/[id number] 05:04:00* Test Item Value Reference Range Interpretation [...] pat ients with mechanical heart valves.HEPATIC FUNCTION [id number] 04:18:00* Test Item Value Reference Range Interpretation [...] 347) 146 U/L 6-55 H Specimen markedly [id number] 03:59:00* Test Item Value Reference Range Interpretation Comments MAGNESIUM (BEAKER) (test code = 627) 2.4 mg/dL 1.6-2.6 BASIC METABOLIC [id number] 03:59:00* Test Item Value Reference Range Interpretation [...] NOT APPLICABLE FOR DIALYSIS PATIENTS. Specimen markedly [id number] 03:59:00* Test Item Value Reference Range Interpretation Comments AMYLASE (BEAKER) (test code = 349) 49 U/L 25-125 Specimen markedly [id number] 03:59:00* Test Item Value Reference Range Interpretation Comments LIPASE (BEAKER) (test code = 749) 186 U/L 8-78 H Specimen markedly ictericLACTIC ACID, [id number] 03:41:00* Test Item Value Reference Range Interpretation Comments LACTATE BLOOD ARTERIAL (2) (BEAKER) (test code = 2874) 1.5 mmol/L 0.5-2.2 Specimen markedly ictericCBC W/PLT COUNT & AUTO [id number] 03:38:00 * Test Item Value Reference Range [...] 2801) 3 % 0-1 H BLOOD GAS, [id number] 03:30:00* Test Item Value Reference Range Interpretation [...] (test code = 1819) 40.0 % CALCIUM, [id number] 03:28:00* Test Item Value Reference Range Interpretation Comments CALCIUM IONIZED (BEAKER) (test code = 698) 1.14 mmol/L 1.12-1.27 PH, BLOOD (BEAKER) (test code = 1810) 7.53 Check serum Ionized Calcium level after 4 hours after IV Calcium replacement. POCT-GLUCOSE [id number] 00:11:00* Test Item Value Reference Range Interpretation Comments POC-GLUCOSE METER (BEAKER) (test code = 1538) 233 mg/dL 70-110 H TESTED AT [facility] [address] [facility] [address] HEMOGLOBIN AND [id number] 23:41:00* Test Item Value Reference Range Interpretation Comments HEMOGLOBIN (BEAKER) (test code = 410) 8.3 GM/DL 13.7-17.5 L HEMATOCRIT (BEAKER) (test code = 411) 26.1 % 40.1-51.0 L [id number] 20:50:00* Test Item Value Reference Range Interpretation Comments MAGNESIUM (BEAKER) (test code = 627) 2.5 mg/dL 1.6-2.6 BASIC METABOLIC [id number] 20:50:00* Test Item Value Reference Range Interpretation [...] APPLICABLE FOR DIALYSIS PATIENTS. Specimen markedly ictericCALCIUM, [id number] 20:26:00* Test Item Value Reference Range Interpretation Comments CALCIUM IONIZED (BEAKER) (test code = 698) 1.11 mmol/L 1.12-1.27 L PH, BLOOD (BEAKER) (test code = 1810) 7.53 Check serum Ionized Calcium level after 4 hours after IV Calcium replacement. POCT-GLUCOSE [id number] 20:07:00* Test Item Value Reference Range Interpretation Comments POC-GLUCOSE METER (BEAKER) (test code = 1538) 203 mg/dL 70-110 H TESTED AT [address] [address] POCT-GLUCOSE [id number] 16:57:00* Test Item Value Reference Range Interpretation Comments POC-GLUCOSE METER (BEAKER) (test code = 1538) 130 mg/dL 70-110 H TESTED AT [address] [address] VITAMIN B12 AND [id number] 16:12:00* Test Item Value Reference Range Interpretation Comments VITAMIN B12 (BEAKER) (test code = 774) 1499 pg/mL 213-816 H FOLATE (BEAKER) (test code = 362) 14.9 ng/mL >=7.0 POCT-GLUCOSE [id number] 15:35:00* Test Item Value Reference Range Interpretation Comments POC-GLUCOSE METER (BEAKER) (test code = 1538) 101 mg/dL 70-110 TESTED AT [address] [address] (MANUAL DIFFERENTIAL)2018-06-16 14:42:00* Test Item Value Reference [...] RBCS(BEAKER) (test code = 478) 1+ few [id number] 14:16:00* Test Item Value Reference Range Interpretation Comments HAPTOGLOBIN (BEAKER) (test code = 366) 250 mg/dL 14-258 [id number] 14:09:00* Test Item Value Reference Range Interpretation Comments MAGNESIUM (BEAKER) (test code = 627) 2.1 mg/dL 1.6-2.6 BASIC METABOLIC [id number] 14:09:00* Test Item Value Reference Range Interpretation [...] NOT APPLICABLE FOR DIALYSIS PATIENTS. Specimen markedly [id number] 14:09:00* Test Item Value Reference Range Interpretation Comments AMYLASE (BEAKER) (test code = 349) 55 U/L 25-125 Specimen markedly ictericLACTATE DEHYDROGENASE (LDH)2018-06-16 14:09:00* Test Item Value Reference Range Interpretation Comments LACTATE DEHYDROGENASE (BEAKER) (test code = 635) 388 U/L 125-2 20 H [id number] 14:09:00* Test Item Value Reference Range Interpretation [...] = 2590) 30 % 20-5 5 IRON, [id number] 14:04:00* Test Item Value Reference Range Interpretation Comments IRON (BEAKER) (test code = 547) 37.0 ug/dL 40.0-160.0 L LACTIC ACID, [id number] 14:02:00* Test Item Value Reference Range Interpretation [...] 0 /100 WBC 0 -0 BLOOD GAS, [id number] 13:45:00* Test Item Value Reference Range Interpretation [...] (test code = 1819) 100.0 % POCT-GLUCOSE [id number] 13:23:00* Test Item Value Reference Range Interpretation Comments POC-GLUCOSE METER (BEAKER) (test code = 1538) 121 mg/dL 70-110 H TESTED AT [facility] [address] [facility] [address] POCT-GLUCOSE [id number] 11:05:00* Test Item Value Reference Range Interpretation Comments POC-GLUCOSE METER (BEAKER) (test code = 1538) 145 mg/dL 70-110 H TESTED AT [facility] [address] [facility] [address] POCT-GLUCOSE [id number] 08:56:00* Test Item Value Reference Range Interpretation Comments POC-GLUCOSE METER (BEAKER) (test code = 1538) 147 mg/dL 70-110 H TESTED AT [facility] [address] [facility] [address] CBC W/PLT COUNT & AUTO [id number] 08:10:00* Test Item Value Reference Range Interpretation [...] - REL (DIFF) (BEAKER) (test code = 6149) 89 % LYMPHOCYTES - REL (DIFF) (BEAKER) [...] 1+ few RAD, CHEST, 1 VIEW, NON [id number] 07:59:00Reason for exam:->Pulmonary edema evaluationShould this be performed at the bedside?->YesFINAL REPORT INDICATION: Pulmonary edema evaluation COMPARISON:June 15. TECHNIQUE: Chest radiograph, single view, portable technique. FINDINGS / IMPRESSION: Prominent heart shadow and diffuse interstitial pulmonary edema are again demonstrated. Support lines and tubes unchanged and appear satisfactory. No pneumothorax. Signed: Natalio Santillan MDReport Verified Date/Time: 06/16/2018 07:59:49 Reading Location: [address] Consult Reading Room [facility] signed by: NATALIO SANTILLAN M.D. on 06/16/2018 07:59 AM POCT- GLUCOSE [id number] 07:05:00* Test Item Value Reference Range Interpretation Comments POC-GLUCOSE METER (BEAKER) (test code = 1538) 114 mg/dL 70-110 H TESTED AT [facility] [address] [place] [address] POCT-GLUCOSE [id number] 05:09:00* Test Item Value Reference Range Interpretation Comments POC-GLUCOSE METER (BEAKER) (test code = 1538) 120 mg/dL 70-110 H TESTED AT [address] [address] HEPATIC FUNCTION [id number] 04:53:00* Test Item Value Reference Range Interpretation [...] 347) 138 U/L 6-55 H Specimen markedly [id number] 04:30:00* Test Item Value Reference Range Interpretation Comments MAGNESIUM (BEAKER) (test code = 627) 2.3 mg/dL 1.6-2.6 BASIC METABOLIC [id number] 04:30:00* Test Item Value Reference Range Interpretation [...] NOT APPLICABLE FOR DIALYSIS PATIENTS. Specimen markedly [id number] 04:14:00* Test Item Value Reference Range Interpretation Comments PARTIAL THROMBOPLASTIN TIME (BEAKER) (test code = 760) 48.2 seconds 22.5-36.0 H PROTHROMBIN [id number] 04:13:00* Test Item Value Reference Range Interpretation [...] pat ients with mechanical heart valves.LACTIC ACID, [id number] 04:08:00* Test Item Value Reference Range Interpretation Comments LACTATE BLOOD ARTERIAL (2) (BEAKER) (test code = 2874) 0.9 mmol/L 0.5-2.2 Specimen markedly ictericBLOOD GAS, [id number] 03:51:00* Test Item Value Reference Range Interpretation [...] (test code = 1819) 40.0 % CALCIUM, [id number] 03:49:00* Test Item Value Reference Range Interpretation Comments CALCIUM IONIZED (BEAKER) (test code = 698) 1.13 mmol/L 1.12-1.27 PH, BLOOD (BEAKER) (test code = 1810) 7.52 Check serum Ionized Calcium level after 4 hours after IV Calcium replacement. POCT-GLUCOSE [id number] 02:50:00* Test Item Value Reference Range Interpretation Comments POC-GLUCOSE METER (BEAKER) (test code = 1538) 132 mg/dL 70-110 H TESTED AT [address] [address] POCT-GLUCOSE [id number] 01:18:00* Test Item Value Reference Range Interpretation Comments POC-GLUCOSE METER (BEAKER) (test code = 1538) 137 mg/dL 70-110 H TESTED AT [address] [address] POCT-GLUCOSE [id number] 00:07:00* Test Item Value Reference Range Interpretation Comments POC-GLUCOSE METER (BEAKER) (test code = 1538) 131 mg/dL 70-110 H TESTED AT [address] [address] BLOOD GAS, [id number] 22:54:00* Test Item Value Reference Range Interpretation [...] (test code = 1819) 40.0 % POCT-GLUCOSE [id number] 22:51:00* Test Item Value Reference Range Interpretation Comments POC-GLUCOSE METER (BEAKER) (test code = 1538) 167 mg/dL 70-110 H TESTED AT [address] [address] [id number] 22:08:00* Test Item Value Reference Range Interpretation Comments POTASSIUM (BEAKER) (test code = 379) 3.9 meq/L 3.5-5.1 PRN - repeat potassium levels every 1 hour until glucose level is less than 450 mg/[id number] 22:08:00* Test Item Value Reference Range Interpretation Comments MAGNESIUM (BEAKER) (test code = 627) 2.3 mg/dL 1.6-2.6 PRN - repeat potassium levels every 1 hour until glucose level is less than 450 mg/dLPOCT-GLUCOSE [id number] 22:00:00* Test Item Value Reference Range Interpretation Comments POC-GLUCOSE METER (BEAKER) (test code = 1538) 126 mg/dL 70-110 H TESTED AT [address] [address] HEMOGLOBIN AND [id number] 21:56:00* Test Item Value Reference Range Interpretation Comments HEMOGLOBIN (BEAKER) (test code = 410) 8.4 GM/DL 13.7-17.5 L HEMATOCRIT (BEAKER) (test code = 411) 26.0 % 40.1-51.0 L CALCIUM, [id number] 21:53:00* Test Item Value Reference Range Interpretation Comments CALCIUM IONIZED (BEAKER) (test code = 698) 1.10 mmol/L 1.12-1.27 L PH, BLOOD (BEAKER) (test code = 1810) 7.50 Check serum Ionized Calcium level after 4 hours after IV Calcium replacement. POCT-GLUCOSE [id number] 20:41:00* Test Item Value Reference Range Interpretation Comments POC-GLUCOSE METER (BEAKER) (test code = 1538) 90 mg/dL 70-110 TESTED AT [address] [address] BLOOD GAS, [id number] 18:42:00* Test Item Value Reference Range Interpretation [...] (test code = 1819) 50.0 % POCT-GLUCOSE [id number] 17:49:00* Test Item Value Reference Range Interpretation Comments POC-GLUCOSE METER (BEAKER) (test code = 1538) 125 mg/dL 70-110 H TESTED AT [facility] [address] [facility] [address] BASIC METABOLIC [id number] 17:46:00* Test Item Value Reference Range Interpretation [...] FOR DIALYSIS PATIENTS. Specimen markedly ictericBLOOD GAS, [id number] 17:35:00* Test Item Value Reference Range Interpretation [...] (test code = 1819) 50.0 % POCT-GLUCOSE [id number] 15:27:00* Test Item Value Reference Range Interpretation Comments POC-GLUCOSE METER (BEAKER) (test code = 1538) 138 mg/dL 70-110 H TESTED AT [facility] [address] [facility] [address] [id number] 13:59:00* Test Item Value Reference Range Interpretation Comments MAGNESIUM (BEAKER) (test code = 627) 2.1 mg/dL 1.6-2.6 BASIC METABOLIC [id number] 13:59:00* Test Item Value Reference Range Interpretation [...] FOR DIALYSIS PATIENTS. Specimen markedly ictericBLOOD GAS, [id number] 13:40:00* Test Item Value Reference Range Interpretation [...] code = 1819) 50.0 % HEMOGLOBIN AND [id number] 13:40:00* Test Item Value Reference Range Interpretation Comments HEMOGLOBIN (BEAKER) (test code = 410) 7.4 GM/DL 13.7-17.5 L HEMATOCRIT (BEAKER) (test code = 411) 23.5 % 40.1-51.0 L Please collect after PRBCs doneRAD, CHEST, 1 VIEW, NON [id number] 11:32:00 Reason for exam:->Pulmonary edema evaluationShould this [...] feeding tube again demonstrated. Signed: Natalio Santillan [facility] Verified Date/Time: 06/15/2018 11:32:52 Reading Location: [facility] B1 C013W Consult Reading Room -GLUCOSE [id number] 10:50:00* Test Item Value Reference Range Interpretation Comments POC-GLUCOSE METER (BEAKER) (test code = 1538) 107 mg/dL 70-110 TESTED AT [facility] [address] [place] [address] CBC W/PLT COUNT & AUTO [id number] 09:04:00* Test Item Value Reference Range Interpretation [...] PLATELET CONCENTRATION (CELLAVISION)(BEAKER) (test code = 3438) Cheyrl quate Received comment: User comments: Slide comments: [id number] 08:43:00* Test Item Value Reference Range Interpretation Comments POTASSIUM (BEAKER) (test code = 379) 3.9 meq/L 3.5-5.1 PRN - repeat glucose levels every 1 hour or as specified by insulin titration or ders until glucose level is less than 450 mg/dLCheck Serum Potassium level 2 roxy rs after oral potassium replacement completed or 30 min after intravenous potass ium replacement.[id number] 08:43:00* Test Item Value Reference Range Interpretation Comments GLUCOSE RANDOM (BEAKER) (test code = 652) 123 mg/dL 70-105 H PRN - repeat glucose levels every 1 hour or as specified by insulin titration or ders until glucose level is less than 450 mg/dLCheck Serum Potassium level 2 roxy rs after oral potassium replacement completed or 30 min after intravenous potass ium replacement.HEMOGLOBIN AND [id number] 07:05:00* Test Item Value Reference Range Interpretation Comments HEMOGLOBIN (BEAKER) (test code = 410) 6.6 GM/DL 13.7-17.5 L HEMATOCRIT (BEAKER) (test code = 411) 21.3 % 40.1-51.0 L POCT-GLUCOSE [id number] 06:52:00* Test Item Value Reference Range Interpretation Comments POC-GLUCOSE METER (BEAKER) (test code = 1538) 117 mg/dL 70-110 H TESTED AT [facility] [address] [facility] [address] CALCIUM, [id number] 04:47:00* Test Item Value Reference Range Interpretation Comments CALCIUM IONIZED (BEAKER) (test code = 698) 1.10 mmol/L 1.12-1.27 L PH, BLOOD (BEAKER) (test code = 1810) 7.48 Check serum Ionized Calcium level after 4 hours after IV Calcium replacement. BLOOD GAS, [id number] 04:47:00* Test Item Value Reference Range Interpretation [...] code = 1819) 50.0 % BASIC METABOLIC [id number] 04:27:00* Test Item Value Reference Range Interpretation [...] NOT APPLICABLE FOR DIALYSIS PATIENTS. Specimen markedly [id number] 04:15:00* Test Item Value Reference Range Interpretation Comments MAGNESIUM (BEAKER) (test code = 627) 2.4 mg/dL 1.6-2.6 HEPATIC FUNCTION [id number] 04:15:00* Test Item Value Reference Range Interpretation [...] 134 U/L 6-55 H Specimen markedly ictericPOCT-GLUCOSE [id number] 04:02:00* Test Item Value Reference Range Interpretation Comments POC-GLUCOSE METER (BEAKER) (test code = 1538) 107 mg/dL 70-110 TESTED AT [facility] [address] [facility] [address] [id number] 03:59:00* Test Item Value Reference Range Interpretation Comments PARTIAL THROMBOPLASTIN TIME (BEAKER) (test code = 760) 54.6 seconds 22.5-36.0 H PROTHROMBIN [id number] 03:58:00* Test Item Value Reference Range Interpretation [...] pat ients with mechanical heart valves.LACTIC ACID, [id number] 03:56:00* Test Item Value Reference Range Interpretation Comments LACTATE BLOOD ARTERIAL (2) (BEAKER) (test code = 2874) 1.1 mmol/L 0.5-2.2 Specimen markedly ictericPOCT-GLUCOSE [id number] 03:10:00* Test Item Value Reference Range Interpretation Comments POC-GLUCOSE METER (BEAKER) (test code = 1538) 118 mg/dL 70-110 H TESTED AT [address] [address] POCT-GLUCOSE [id number] 02:11:00* Test Item Value Reference Range Interpretation Comments POC-GLUCOSE METER (BEAKER) (test code = 1538) 112 mg/dL 70-110 H TESTED AT [address] [address] POCT-GLUCOSE [id number] 01:28:00* Test Item Value Reference Range Interpretation Comments POC-GLUCOSE METER (BEAKER) (test code = 1538) 126 mg/dL 70-110 H TESTED AT [address] [address] BASIC METABOLIC [id number] 00:27:00* Test Item Value Reference Range Interpretation [...] APPLICABLE FOR DIALYSIS PATIENTS. Specimen markedly ictericPOCT-GLUCOSE [id number] 00:22:00* Test Item Value Reference Range Interpretation Comments POC-GLUCOSE METER (BEAKER) (test code = 1538) 155 mg/dL 70-110 H TESTED AT [facility] [address] [facility] [address] POCT-GLUCOSE [id number] 23:18:00* Test Item Value Reference Range Interpretation Comments POC-GLUCOSE METER (BEAKER) (test code = 1538) 168 mg/dL 70-110 H TESTED AT [facility] [address] [facility] [address] POCT-GLUCOSE [id number] 22:13:00* Test Item Value Reference Range Interpretation Comments POC-GLUCOSE METER (BEAKER) (test code = 1538) 171 mg/dL 70-110 H TESTED AT [facility] [address] [facility] [address] [id number] 21:19:00* Test Item Value Reference Range Interpretation Comments MAGNESIUM (BEAKER) (test code = 627) 2.5 mg/dL 1.6-2.6 POCT-GLUCOSE [id number] 21:14:00* Test Item Value Reference Range Interpretation Comments POC-GLUCOSE METER (BEAKER) (test code = 1538) 166 mg/dL 70-110 H TESTED AT [place] [id number] [facility] [address] CALCIUM, [id number] 21:03:00* Test Item Value Reference Range Interpretation Comments CALCIUM IONIZED (BEAKER) (test code = 698) 1.07 mmol/L 1.12-1.27 L PH, BLOOD (BEAKER) (test code = 1810) 7.52 Check serum Ionized Calcium level after 4 hours after IV Calcium replacement. POCT-GLUCOSE [id number] 20:12:00* Test Item Value Reference Range Interpretation Comments POC-GLUCOSE METER (BEAKER) (test code = 1538) 172 mg/dL 70-110 H TESTED AT [address] [address] POCT-GLUCOSE [id number] 18:57:00* Test Item Value Reference Range Interpretation Comments POC-GLUCOSE METER (BEAKER) (test code = 1538) 158 mg/dL 70-110 H TESTED AT [address] [address] POCT-GLUCOSE [id number] 18:57:00* Test Item Value Reference Range Interpretation Comments POC-GLUCOSE METER (BEAKER) (test code = 1538) 172 mg/dL 70-110 H TESTED AT [address] [address] POCT-GLUCOSE [id number] 18:57:00* Test Item Value Reference Range Interpretation Comments POC-GLUCOSE METER (BEAKER) (test code = 1538) 139 mg/dL 70-110 H TESTED AT [address] [address] POCT-GLUCOSE [id number] 18:57:00* Test Item Value Reference Range Interpretation Comments POC-GLUCOSE METER (BEAKER) (test code = 1538) 98 mg/dL 70-110 TESTED AT [address] [address] BASIC METABOLIC [id number] 18:53:00* Test Item Value Reference Range Interpretation [...] FOR DIALYSIS PATIENTS. Specimen markedly ictericEBV VIRAL [id number] 17:58:00* Test Item Value Reference Range Interpretation [...] (2) real-time PCR amplification and detection with STMP-5-twgcee ic primers and probes. A well-conserved region [...] its performance characteristic s determined by the [facility] Pathology Department, Section of varinder Pathology. It has not been cleared or approved by the U.S. Food and Zach g Administration (FDA), since FDA approval is not required for clinical use of t he test. Validation was done as required by The Clinical Laboratory Improvement Amendments of 1988.POCT-GLUCOSE [id number] 14:21:00* Test Item Value Reference Range Interpretation Comments POC-GLUCOSE METER (BEAKER) (test code = 1538) 102 mg/dL 70-110 TESTED AT [facility] [address] [facility] [address] POCT-GLUCOSE [id number] 12:29:00* Test Item Value Reference Range Interpretation Comments POC-GLUCOSE METER (BEAKER) (test code = 1538) 101 mg/dL 70-110 TESTED AT [facility] [address] [facility] [address] BASIC METABOLIC [id number] 11:58:00* Test Item Value Reference Range Interpretation [...] NOT APPLICABLE FOR DIALYSIS PATIENTS. Specimen markedly [id number] 11:55:00* Test Item Value Reference Range Interpretation Comments MAGNESIUM (BEAKER) (test code = 627) 2.8 mg/dL 1.6-2.6 H POCT-GLUCOSE [id number] 11:53:00* Test Item Value Reference Range Interpretation Comments POC-GLUCOSE METER (BEAKER) (test code = 1538) 134 mg/dL 70-110 H TESTED AT [address] [address] POCT-GLUCOSE [id number] 11:53:00* Test Item Value Reference Range Interpretation Comments POC-GLUCOSE METER (BEAKER) (test code = 1538) 134 mg/dL 70-110 H TESTED AT [address] [address] POCT-GLUCOSE [id number] 11:53:00* Test Item Value Reference Range Interpretation Comments POC-GLUCOSE METER (BEAKER) (test code = 1538) 161 mg/dL 70-110 H TESTED AT [address] [address] BLOOD GAS, [id number] 11:41:00* Test Item Value Reference Range Interpretation [...] 50.0 % CBC W/PLT COUNT & AUTO [id number] 10:02:00* Test Item Value Reference Range Interpretation [...] Received comment: User comments: Slide comments: POCT-GLUCOSE [id number] 09:09:00* Test Item Value Reference Range Interpretation Comments POC-GLUCOSE METER (BEAKER) (test code = 1538) 159 mg/dL 70-110 H TESTED AT [facility] [address] [facility] [address] POCT-GLUCOSE [id number] 08:09:00* Test Item Value Reference Range Interpretation Comments POC-GLUCOSE METER (BEAKER) (test code = 1538) 178 mg/dL 70-110 H TESTED AT [facility] [address] [facility] [address] RAD, CHEST, 1 VIEW, NON [id number] 07:32:00Reason for exam:->respiratory insufficiencyShould this be performed [...] Rogelepjane Verified Date/Time: 06/14/2018 07:32:08 Reading Location: [facility] Radiology Reading Room [id number] 06:43:00* Test Item Value Reference Range Interpretation Comments PARTIAL THROMBOPLASTIN TIME (BEAKER) (test code = 760) 45.8 seconds 22.5-36.0 H PROTHROMBIN TIME/[id number] 06:42:00* Test Item Value Reference Range Interpretation [...] pat ients with mechanical heart valves.BASIC METABOLIC [id number] 06:41:00* Test Item Value Reference Range Interpretation [...] APPLICABLE FOR DIALYSIS PATIENTS. Specimen markedly ictericPOCT-GLUCOSE [id number] 06:32:00* Test Item Value Reference Range Interpretation Comments POC-GLUCOSE METER (BEAKER) (test code = 1538) 175 mg/dL 70-110 H TESTED AT [place] [id number] [facility] [address] POCT-GLUCOSE [id number] 05:43:00* Test Item Value Reference Range Interpretation Comments POC-GLUCOSE METER (BEAKER) (test code = 1538) 149 mg/dL 70-110 H TESTED AT [place] [id number] [facility] [address] POCT-GLUCOSE [id number] 05:43:00* Test Item Value Reference Range Interpretation Comments POC-GLUCOSE METER (BEAKER) (test code = 1538) 140 mg/dL 70-110 H TESTED AT [place] [id number] [facility] [address] BASIC METABOLIC [id number] 04:55:00* Test Item Value Reference Range Interpretation [...] FOR DIALYSIS PATIENTS. Specimen markedly ictericBLOOD GAS, [id number] 04:37:00* Test Item Value Reference Range Interpretation [...] code = 1819) 60.0 % BASIC METABOLIC [id number] 04:35:00* Test Item Value Reference Range Interpretation [...] NOT APPLICABLE FOR DIALYSIS PATIENTS. Specimen markedly [id number] 04:25:00* Test Item Value Reference Range Interpretation Comments MAGNESIUM (BEAKER) (test code = 627) 2.4 mg/dL 1.6-2.6 HEPATIC FUNCTION [id number] 04:25:00* Test Item Value Reference Range Interpretation [...] 347) 119 U/L 6-55 H Specimen markedly [id number] 04:25:00* Test Item Value Reference Range Interpretation Comments AMYLASE (BEAKER) (test code = 349) 80 U/L 25-125 Specimen markedly [id number] 04:25:00* Test Item Value Reference Range Interpretation Comments LIPASE (BEAKER) (test code = 749) 222 U/L 8-78 H Specimen markedly ictericLACTIC ACID, [id number] 04:17:00* Test Item Value Reference Range Interpretation Comments LACTATE BLOOD ARTERIAL (2) (BEAKER) (test code = 2874) 0.8 mmol/L 0.5-2.2 Specimen markedly ictericPOCT-GLUCOSE [id number] 02:31:00* Test Item Value Reference Range Interpretation Comments POC-GLUCOSE METER (BEAKER) (test code = 1538) 98 mg/dL 70-110 TESTED AT [facility] [address] [facility] [address] POCT-GLUCOSE [id number] 01:45:00* Test Item Value Reference Range Interpretation Comments POC-GLUCOSE METER (BEAKER) (test code = 1538) 120 mg/dL 70-110 H TESTED AT [facility] [address] [facility] [address] POCT-GLUCOSE [id number] 01:45:00* Test Item Value Reference Range Interpretation Comments POC-GLUCOSE METER (BEAKER) (test code = 1538) 171 mg/dL 70-110 H TESTED AT [place] [id number] [facility] [address] CT, CHEST, WITHOUT [id number] 00:56:00FINAL REPORT EXAM: CT of the chest, [...] MDReport Verified Date/Time: 06/14/2018 00:56:49 Reading Location: [facility] C013Y CT Body Reading Room Amada ctronically signed by: NICOLÁS CEBALLOS MD on 06/14/2018 12:[address], [id number] 00:56:00With PO contrastFINAL REPORT EXAM: CT of [...] Ceballos Verified Date/Time: 06/14/2018 00:56:49 Reading Location: [facility] B1 C013Y CT Body Reading Room Amada ctronically signed by: NICOLÁS CEBALLOS MD on 06/14/2018 12:56 AM POCT- GLUCOSE [id number] 23:12:00* Test Item Value Reference Range Interpretation Comments POC-GLUCOSE METER (BEAKER) (test code = 1538) 200 mg/dL 70-110 H TESTED AT [facility] [address] [facility] [address] POCT-GLUCOSE [id number] 23:12:00* Test Item Value Reference Range Interpretation Comments POC-GLUCOSE METER (BEAKER) (test code = 1538) 132 mg/dL 70-110 H TESTED AT [address] [address] [id number] 21:11:00* Test Item Value Reference Range Interpretation Comments MAGNESIUM (BEAKER) (test code = 627) 2.5 mg/dL 1.6-2.6 POCT-GLUCOSE [id number] 20:48:00* Test Item Value Reference Range Interpretation Comments POC-GLUCOSE METER (BEAKER) (test code = 1538) 103 mg/dL 70-110 TESTED AT [address] [address] POCT-GLUCOSE [id number] 20:48:00* Test Item Value Reference Range Interpretation Comments POC-GLUCOSE METER (BEAKER) (test code = 1538) 98 mg/dL 70-110 TESTED AT [address] [address] POCT-GLUCOSE [id number] 18:14:00* Test Item Value Reference Range Interpretation Comments POC-GLUCOSE METER (BEAKER) (test code = 1538) 108 mg/dL 70-110 TESTED AT [address] [address] BASIC METABOLIC [id number] 18:09:00* Test Item Value Reference Range Interpretation [...] FOR DIALYSIS PATIENTS. Specimen markedly ictericBLOOD GAS, [id number] 16:57:00* Test Item Value Reference Range Interpretation [...] (test code = 1819) 40.0 % POCT-GLUCOSE [id number] 16:51:00* Test Item Value Reference Range Interpretation Comments POC-GLUCOSE METER (BEAKER) (test code = 1538) 107 mg/dL 70-110 TESTED AT [facility] [address] [facility] [address] CMV PCR, [id number] 16:28:00* Test Item Value Reference Range Interpretation [...] its performance characteristics determined by [facility]lene green[facility] Pathology Department, Section of Molecular Patholog y. It has not been cleared or approved by the U.S. Food and Drug Administration (FDA), since FDA approval is not required for clinical use of the test. Validati on was done as required by The Clinical Laboratory Improvement Amendments of 198 8.POCT-GLUCOSE [id number] 15:09:00* Test Item Value Reference Range Interpretation Comments POC-GLUCOSE METER (BEAKER) (test code = 1538) 119 mg/dL 70-110 H TESTED AT [place] [id number] [facility] [address] POCT-GLUCOSE [id number] 14:43:00* Test Item Value Reference Range Interpretation Comments POC-GLUCOSE METER (BEAKER) (test code = 1538) 129 mg/dL 70-110 H TESTED AT [address] [address] BASIC METABOLIC [id number] 13:25:00* Test Item Value Reference Range Interpretation [...] APPLICABLE FOR DIALYSIS PATIENTS. Specimen markedly ictericPOCT-GLUCOSE [id number] 13:23:00* Test Item Value Reference Range Interpretation Comments POC-GLUCOSE METER (BEAKER) (test code = 1538) 172 mg/dL 70-110 H TESTED AT [address] [address] [id number] 13:14:00* Test Item Value Reference Range Interpretation Comments MAGNESIUM (BEAKER) (test code = 627) 2.6 mg/dL 1.6-2.6 Specimen slightly hemolyzed POCT-GLUCOSE [id number] 12:04:00* Test Item Value Reference Range Interpretation Comments POC-GLUCOSE METER (BEAKER) (test code = 1538) 205 mg/dL 70-110 H TESTED AT [address] [address] POCT-GLUCOSE [id number] 11:10:00* Test Item Value Reference Range Interpretation Comments POC-GLUCOSE METER (BEAKER) (test code = 1538) 182 mg/dL 70-110 H TESTED AT [address] [address] BLOOD GAS, [id number] 10:41:00* Test Item Value Reference Range Interpretation [...] (test code = 1819) 100.0 % POCT-GLUCOSE [id number] 09:50:00* Test Item Value Reference Range Interpretation Comments POC-GLUCOSE METER (BEAKER) (test code = 1538) 138 mg/dL 70-110 H TESTED AT [address] [address] POCT-GLUCOSE [id number] 08:44:00* Test Item Value Reference Range Interpretation Comments POC-GLUCOSE METER (BEAKER) (test code = 1538) 98 mg/dL 70-110 TESTED AT [address] [address] BLOOD GAS, [id number] 06:47:00* Test Item Value Reference Range Interpretation [...] (test code = 1819) 80.0 % POCT-GLUCOSE [id number] 06:41:00* Test Item Value Reference Range Interpretation Comments POC-GLUCOSE METER (BEAKER) (test code = 1538) 123 mg/dL 70-110 H TESTED AT [address] [address] POCT-GLUCOSE [id number] 06:41:00* Test Item Value Reference Range Interpretation Comments POC-GLUCOSE METER (BEAKER) (test code = 1538) 121 mg/dL 70-110 H TESTED AT [address] [address] BASIC METABOLIC [id number] 06:25:00* Test Item Value Reference Range Interpretation [...] FOR DIALYSIS PATIENTS. Specimen markedly ictericBASIC METABOLIC [id number] 03:47:00* Test Item Value Reference Range Interpretation [...] NOT APPLICABLE FOR DIALYSIS PATIENTS. Specimen markedly [id number] 03:41:00* Test Item Value Reference Range Interpretation Comments MAGNESIUM (BEAKER) (test code = 627) 2.7 mg/dL 1.6-2.6 H HEPATIC FUNCTION [id number] 03:41:00* Test Item Value Reference Range Interpretation [...] 347) 104 U/L 6-55 H Specimen markedly [id number] 03:39:00* Test Item Value Reference Range Interpretation Comments PARTIAL THROMBOPLASTIN TIME (BEAKER) (test code = 760) 48.3 seconds 22.5-36.0 H PROTHROMBIN TIME/[id number] 03:38:00* Test Item Value Reference Range Interpretation [...] pat ients with mechanical heart valves.LACTIC ACID, [id number] 03:31:00* Test Item Value Reference Range Interpretation Comments LACTATE BLOOD ARTERIAL (2) (BEAKER) (test code = 2874) 0.8 mmol/L 0.5-2.2 Specimen markedly ictericCBC W/PLT COUNT & AUTO [id number] 03:24:00 * Test Item Value Reference Range [...] = 2801) 3 % 0-1 H POCT-GLUCOSE [id number] 03:06:00* Test Item Value Reference Range Interpretation Comments POC-GLUCOSE METER (BEAKER) (test code = 1538) 155 mg/dL 70-110 H TESTED AT [facility] [address] [facility] [address] BASIC METABOLIC [id number] 02:44:00* Test Item Value Reference Range Interpretation [...] FOR DIALYSIS PATIENTS. Specimen markedly ictericBLOOD GAS, [id number] 02:08:00* Test Item Value Reference Range Interpretation [...] 100.0 % RAD, CHEST, 1 VIEW, NON [id number] 01:40:00Reason for exam:->decreased lung sounds; possible aspirationShould this be performed at the bedside?->YesFINAL REPORT CLINICAL INDICATION: Decreased lung sounds, concern for aspiration Comparison: 06/12/2018 The cardiomediastinal contours are stable. The lung volumes remain low. Central pulmonary vascular congestion and bilateral parenchymal opacities are unchanged. There is no pneumothorax. Support lines are stable. Signed: Katherine Reich MDReport Verified Date/Time: 06/14/19 01:40:10 Reading Location: [address] Reading Room Electron ically signed by: KATHERINE REICH M.D. on 06/13/2018 01:40 AM RAD, ABDOMEN/KUB, 1 VIEW [id number] 01:37:00Reason for exam:->distended abdomenShould this be performed [...] MDReport Verified Date/Time: 06/13/2018 01:37:29 Reading Location: [address] Reading Room -GLUCOSE [id number] 00:36:00* Test Item Value Reference Range Interpretation Comments POC-GLUCOSE METER (BEAKER) (test code = 1538) 192 mg/dL 70-110 H TESTED AT [address] [address] OCCULT BLOOD, [id number] 22:31:00* Test Item Value Reference Range Interpretation Comments FECAL OCCULT BLOOD (BEAKER) (test code = 618) Positive Negative A [id number] 21:12:00* Test Item Value Reference Range Interpretation Comments MAGNESIUM (BEAKER) (test code = 627) 2.4 mg/dL 1.6-2.6 POCT-GLUCOSE [id number] 20:34:00* Test Item Value Reference Range Interpretation Comments POC-GLUCOSE METER (BEAKER) (test code = 1538) 160 mg/dL 70-110 H TESTED AT [place] [id number] SELECT [facility] [address] BASIC METABOLIC [id number] 18:27:00* Test Item Value Reference Range Interpretation [...] APPLICABLE FOR DIALYSIS PATIENTS. Specimen markedly ictericPOCT-GLUCOSE [id number] 17:35:00* Test Item Value Reference Range Interpretation Comments POC-GLUCOSE METER (BEAKER) (test code = 1538) 136 mg/dL 70-110 H TESTED AT [place] [id number] [facility] [address] BLOOD GAS, [id number] 16:12:00* Test Item Value Reference Range Interpretation [...] (test code = 1819) 40.0 % POCT-GLUCOSE [id number] 14:51:00* Test Item Value Reference Range Interpretation Comments POC-GLUCOSE METER (BEAKER) (test code = 1538) 137 mg/dL 70-110 H TESTED AT [facility] [address] [facility] [address] POCT-GLUCOSE [id number] 13:23:00* Test Item Value Reference Range Interpretation Comments POC-GLUCOSE METER (BEAKER) (test code = 1538) 132 mg/dL 70-110 H TESTED AT [address] [address] BLOOD GAS, [id number] 13:13:00* Test Item Value Reference Range Interpretation [...] code = 1819) 40.0 % BASIC METABOLIC [id number] 13:08:00* Test Item Value Reference Range Interpretation [...] NOT APPLICABLE FOR DIALYSIS PATIENTS. Specimen markedly [id number] 13:04:00* Test Item Value Reference Range Interpretation Comments MAGNESIUM (BEAKER) (test code = 627) 2.6 mg/dL 1.6-2.6 POCT-GLUCOSE [id number] 12:17:00* Test Item Value Reference Range Interpretation Comments POC-GLUCOSE METER (BEAKER) (test code = 1538) 123 mg/dL 70-110 H TESTED AT [address] [address] POCT-GLUCOSE [id number] 11:33:00* Test Item Value Reference Range Interpretation Comments POC-GLUCOSE METER (BEAKER) (test code = 1538) 133 mg/dL 70-110 H TESTED AT [address] [address] POCT-GLUCOSE [id number] 10:10:00* Test Item Value Reference Range Interpretation Comments POC-GLUCOSE METER (BEAKER) (test code = 1538) 151 mg/dL 70-110 H TESTED AT [address] [address] POCT-GLUCOSE [id number] 09:07:00* Test Item Value Reference Range Interpretation Comments POC-GLUCOSE METER (BEAKER) (test code = 1538) 155 mg/dL 70-110 H TESTED AT [address] [address] POCT-GLUCOSE [id number] 08:05:00* Test Item Value Reference Range Interpretation Comments POC-GLUCOSE METER (BEAKER) (test code = 1538) 143 mg/dL 70-110 H TESTED AT [address] [address] CBC W/PLT COUNT & AUTO [id number] 07:31:00* Test Item Value Reference Range Interpretation [...] LATION PRESENT RAD, CHEST, 1 VIEW, NON [id number] 06:50:00Reason for exam:-> respiratory insufficiencyShould this be [...] MDReport Verified Date/Time: 06/12/2018 06:50:17 Reading Location: [facility] B1 C0 13V Neuro Reading Room Electronically signed by: ADRI AVENDAÑO MD o n 06/12/2018 06:50 AM POCT-GLUCOSE [id number] 06:23:00* Test Item Value Reference Range Interpretation Comments POC-GLUCOSE METER (BEAKER) (test code = 1538) 161 mg/dL 70-110 H TESTED AT [facility] [address] [facility] [address] POCT-GLUCOSE [id number] 05:09:00* Test Item Value Reference Range Interpretation Comments POC-GLUCOSE METER (BEAKER) (test code = 1538) 177 mg/dL 70-110 H TESTED AT [facility] [address] [facility] [address] POCT-GLUCOSE [id number] 05:09:00* Test Item Value Reference Range Interpretation Comments POC-GLUCOSE METER (BEAKER) (test code = 1538) 188 mg/dL 70-110 H TESTED AT [facility] [address] [facility] [address] BLOOD GAS, [id number] 04:41:00* Test Item Value Reference Range Interpretation [...] (test code = 1819) 50.0 % CALCIUM, [id number] 04:41:00* Test Item Value Reference Range Interpretation Comments CALCIUM IONIZED (BEAKER) (test code = 698) 1.08 mmol/L 1.12-1.27 L PH, BLOOD (BEAKER) (test code = 1810) 7.44 BASIC METABOLIC [id number] 04:24:00* Test Item Value Reference Range Interpretation [...] NOT APPLICABLE FOR DIALYSIS PATIENTS. Specimen markedly [id number] 04:23:00* Test Item Value Reference Range Interpretation Comments PHOSPHORUS (BEAKER) (test code = 604) 5.0 mg/dL 2.3-4.7 H [id number] 04:23:00* Test Item Value Reference Range Interpretation Comments MAGNESIUM (BEAKER) (test code = 627) 2.8 mg/dL 1.6-2.6 H HEPATIC FUNCTION [id number] 04:23:00* Test Item Value Reference Range Interpretation [...] 347) 96 U/L 6-55 H Specimen markedly [id number] 04:22:00* Test Item Value Reference Range Interpretation Comments PARTIAL THROMBOPLASTIN TIME (BEAKER) (test code = 760) 54.7 seconds 22.5-36.0 H PROTHROMBIN [id number] 04:21:00* Test Item Value Reference Range Interpretation [...] pat ients with mechanical heart valves.LACTIC ACID, [id number] 04:15:00* Test Item Value Reference Range Interpretation Comments LACTATE BLOOD ARTERIAL (2) (BEAKER) (test code = 2874) 0.9 mmol/L 0.5-2.2 Specimen slightly hemolyzed Specimen markedly [id number] 02:06:00* Test Item Value Reference Range Interpretation Comments POTASSIUM (BEAKER) (test code = 379) 3.5 meq/L 3.5-5.1 [id number] 02:06:00* Test Item Value Reference Range Interpretation Comments GLUCOSE RANDOM (BEAKER) (test code = 652) 225 mg/dL 70-105 H BASIC METABOLIC [id number] 00:30:00* Test Item Value Reference Range Interpretation [...] APPLICABLE FOR DIALYSIS PATIENTS. Specimen markedly ictericPOCT-GLUCOSE [id number] 00:28:00* Test Item Value Reference Range Interpretation Comments POC-GLUCOSE METER (BEAKER) (test code = 1538) 245 mg/dL 70-110 H TESTED AT [facility] [address] [facility] [address] BLOOD GAS, [id number] 22:23:00* Test Item Value Reference Range Interpretation [...] code = 1819) 50.0 % BASIC METABOLIC [id number] 20:15:00* Test Item Value Reference Range Interpretation [...] NOT APPLICABLE FOR DIALYSIS PATIENTS. Specimen markedly [id number] 20:07:00* Test Item Value Reference Range Interpretation Comments MAGNESIUM (BEAKER) (test code = 627) 2.6 mg/dL 1.6-2.6 RAD, CHEST, 1 VIEW, NON [id number] 19:02:00Reason for exam:->new right IJ lineShould this [...] MDReport Verified Date/Time: 06/11/2018 19:02:45 Reading Location: [facility] C0[facility] Consult Reading Room C METABOLIC [id number] 15:15:00* Test Item Value Reference Range Interpretation [...] NOT APPLICABLE FOR DIALYSIS PATIENTS. Specimen markedly [id number] 15:09:00* Test Item Value Reference Range Interpretation Comments MAGNESIUM (BEAKER) (test code = 627) 2.6 mg/dL 1.6-2.6 POCT-GLUCOSE [id number] 13:44:00* Test Item Value Reference Range Interpretation Comments POC-GLUCOSE METER (BEAKER) (test code = 1538) 226 mg/dL 70-110 H TESTED AT [facility] [address] [facility] [address] SPIN/CONCENTRATION [id number] 12:22:00* Test Item Value Reference Range Interpretation Comments CONCENTRATION CHARGED (BEAKER) (test code = 2657) Done RAD, CHEST, 1 VIEW, NON [id number] 07:49:00Reason for exam:->pulmonary edemaShould this be performed [...] Rodriguezepjane Verified Date/Time: 06/11 07:49:11 Reading Location: [facility] Radiology Reading Room Amada ctronically signed by: GELA RODRIGUEZ M.D. on 06/11/2018 07:49 AM LACTIC ACID, [id number] 04:44:00* Test Item Value Reference Range Interpretation Comments LACTATE BLOOD ARTERIAL (2) (BEAKER) (test code = 2874) 0.9 mmol/L 0.5-2.2 Specimen markedly ictericBASIC METABOLIC [id number] 04:39:00* Test Item Value Reference Range Interpretation [...] NOT APPLICABLE FOR DIALYSIS PATIENTS. Specimen markedly [id number] 04:38:00* Test Item Value Reference Range Interpretation Comments PHOSPHORUS (BEAKER) (test code = 604) 6.5 mg/dL 2.3-4.7 H [id number] 04:38:00* Test Item Value Reference Range Interpretation Comments MAGNESIUM (BEAKER) (test code = 627) 2.7 mg/dL 1.6-2.6 H HEPATIC FUNCTION [id number] 04:38:00* Test Item Value Reference Range Interpretation [...] code = 380) 116 U/L 29-20 0 [id number] 04:33:00* Test Item Value Reference Range Interpretation Comments PARTIAL THROMBOPLASTIN TIME (BEAKER) (test code = 760) 50.5 seconds 22.5-36.0 H PROTHROMBIN [id number] 04:32:00* Test Item Value Reference Range Interpretation [...] mechanical heart valves.CBC W/PLT COUNT & AUTO [id number] 04:29:00* Test Item Value Reference Range Interpretation [...] = 2801) 5 % 0-1 H CALCIUM, [id number] 04:29:00* Test Item Value Reference Range Interpretation Comments CALCIUM IONIZED (BEAKER) (test code = 698) 1.05 mmol/L 1.12-1.27 L PH, BLOOD (BEAKER) (test code = 1810) 7.42 BLOOD GAS, [id number] 04:25:00* Test Item Value Reference Range Interpretation [...] code = 1819) 60.0 % BASIC METABOLIC [id number] 22:15:00* Test Item Value Reference Range Interpretation [...] GFR IS NOT APPLICABLE FOR DIALYSIS PATIENTS. [id number] 21:07:00* Test Item Value Reference Range Interpretation Comments MAGNESIUM (BEAKER) (test code = 627) 2.8 mg/dL 1.6-2.6 H Specimen slightly hemolyzed BASIC METABOLIC [id number] 18:32:00* Test Item Value Reference Range Interpretation [...] FOR DIALYSIS PATIENTS. Specimen markedly ictericBASIC METABOLIC [id number] 12:06:00* Test Item Value Reference Range Interpretation [...] NOT APPLICABLE FOR DIALYSIS PATIENTS. Specimen markedly [id number] 11:59:00* Test Item Value Reference Range Interpretation Comments MAGNESIUM (BEAKER) (test code = 627) 2.4 mg/dL 1.6-2.6 POCT-GLUCOSE [id number] 11:58:00* Test Item Value Reference Range Interpretation Comments POC-GLUCOSE METER (BEAKER) (test code = 1538) 143 mg/dL 70-110 H TESTED AT [address] [address] BRONCHIAL CULTURE + GRAM [id number] 09:24:00* Test Item Value Reference Range Interpretation Comments CULTURE (BEAKER) (test code = 1095) No growth GRAM STAIN RESULT (BEAKER) (test code = 1123) 1+ WBCs GRAM STAIN RESULT (BEAKER) (test code = 94531) No organisms seen SPUTUM CULTURE + GRAM [id number] 09:24:00* Test Item Value Reference Range Interpretation Comments CULTURE (BEAKER) (test code = 1095) No growth GRAM STAIN RESULT (BEAKER) (test code = 1123) 1+ WBCs GRAM STAIN RESULT (BEAKER) (test code = 45327) 10-15 epithelial dariel ls GRAM STAIN RESULT (BEAKER) (test code = 37760) <1+ gra m positive cocci in pairs and clusters CBC W/PLT COUNT & AUTO [id number] 08:22:00* Test Item Value Reference Range Interpretation [...] PLATELETS SEEN RAD, CHEST, 1 VIEW, NON [id number] 08:07:00Reason for exam:->pulmonary edemaShould this be performed [...] MDReport Verified Date/Time: 06/10/2018 08:07:52 Reading Location: [facility] Radiology Reading Room -GLUCOSE [id number] 05:31:00* Test Item Value Reference Range Interpretation Comments POC-GLUCOSE METER (BEAKER) (test code = 1538) 124 mg/dL 70-110 H TESTED AT [place] [address] BASIC METABOLIC [id number] 04:24:00* Test Item Value Reference Range Interpretation [...] NOT APPLICABLE FOR DIALYSIS PATIENTS. Specimen markedly [id number] 04:16:00* Test Item Value Reference Range Interpretation Comments PARTIAL THROMBOPLASTIN TIME (BEAKER) (test code = 760) 47.0 seconds 22.5-36.0 H PROTHROMBIN [id number] 04:15:00* Test Item Value Reference Range Interpretation Comments PROTIME (BEAKER) (test code = 759) 16.9 seconds 11.7-14.7 H INR (BEAKER) (test code = 370) 1.3 <=5.9 RECOMMENDED COUMADIN/WARFARIN INR THERAPY RANGESSTANDARD DOSE: 2.0 - 3.0 Inclu herb: PROPHYLAXIS for venous thrombosis, systemic embolization; TREATMENT for giulia ous thrombosis and/or pulmonary embolus.HIGH RISK: Target INR is 2.5-3.5 for pat ients with mechanical heart valves.[id number] 04:12:00* Test Item Value Reference Range Interpretation Comments MAGNESIUM (BEAKER) (test code = 627) 2.5 mg/dL 1.6-2.6 HEPATIC FUNCTION [id number] 04:12:00* Test Item Value Reference Range Interpretation [...] U/L 6-55 H Specimen markedly ictericLACTIC ACID, [id number] 03:59:00* Test Item Value Reference Range Interpretation Comments LACTATE BLOOD ARTERIAL (2) (BEAKER) (test code = 2874) 0.9 mmol/L 0.5-2.2 Specimen markedly ictericBLOOD GAS, [id number] 03:21:00* Test Item Value Reference Range Interpretation [...] (test code = 1819) 60.0 % CALCIUM, [id number] 03:19:00* Test Item Value Reference Range Interpretation Comments CALCIUM IONIZED (BEAKER) (test code = 698) 1.12 mmol/L 1.12-1.27 PH, BLOOD (BEAKER) (test code = 1810) 7.44 Check serum Ionized Calcium level after 4 hours after IV Calcium replacement. BASIC METABOLIC [id number] 00:53:00* Test Item Value Reference Range Interpretation [...] APPLICABLE FOR DIALYSIS PATIENTS. Specimen markedly ictericPOCT-GLUCOSE [id number] 00:29:00* Test Item Value Reference Range Interpretation Comments POC-GLUCOSE METER (BEAKER) (test code = 1538) 176 mg/dL 70-110 H TESTED AT [facility] [address] [facility] [address] POCT-GLUCOSE [id number] 21:27:00* Test Item Value Reference Range Interpretation Comments POC-GLUCOSE METER (BEAKER) (test code = 1538) 134 mg/dL 70-110 H TESTED AT [facility] [address] [facility] [address] [id number] 20:56:00* Test Item Value Reference Range Interpretation Comments MAGNESIUM (BEAKER) (test code = 627) 2.2 mg/dL 1.6-2.6 CALCIUM, [id number] 20:46:00* Test Item Value Reference Range Interpretation Comments CALCIUM IONIZED (BEAKER) (test code = 698) 1.08 mmol/L 1.12-1.27 L PH, BLOOD (BEAKER) (test code = 1810) 7.44 BLOOD GAS, [id number] 20:46:00* Test Item Value Reference Range Interpretation [...] (test code = 1819) 60.0 % POCT-GLUCOSE [id number] 20:20:00* Test Item Value Reference Range Interpretation Comments POC-GLUCOSE METER (BEAKER) (test code = 1538) 142 mg/dL 70-110 H TESTED AT [facility] [address] [facility] [address] BASIC METABOLIC [id number] 18:55:00* Test Item Value Reference Range Interpretation [...] PATIENTS. Specimen markedly ictericRAD, ABDOMEN/KUB, 1 VIEW [id number] 17:56:00Reason for exam:->feeding tube placement.FINAL REPORT CLINICAL [...] Reichort Verified Date/Time: 06/09/2018 17:56:44 Reading Location: [address] Reading Room -GLUCOSE [id number] 17:49:00* Test Item Value Reference Range Interpretation Comments POC-GLUCOSE METER (BEAKER) (test code = 1538) 131 mg/dL 70-110 H TESTED AT [place] [id number] [facility] [address] POCT-GLUCOSE [id number] 16:36:00* Test Item Value Reference Range Interpretation Comments POC-GLUCOSE METER (BEAKER) (test code = 1538) 112 mg/dL 70-110 H TESTED AT [facility] [address] [facility] [address] POCT-GLUCOSE [id number] 14:37:00* Test Item Value Reference Range Interpretation Comments POC-GLUCOSE METER (BEAKER) (test code = 1538) 88 mg/dL 70-110 TESTED AT [facility] [address] [facility] [address] POCT-GLUCOSE [id number] 12:48:00* Test Item Value Reference Range Interpretation Comments POC-GLUCOSE METER (BEAKER) (test code = 1538) 104 mg/dL 70-110 TESTED AT [facility] [address] [facility] [address] [id number] 12:46:00* Test Item Value Reference Range Interpretation Comments MAGNESIUM (BEAKER) (test code = 627) 2.3 mg/dL 1.6-2.6 BASIC METABOLIC [id number] 12:46:00* Test Item Value Reference Range Interpretation [...] NOT APPLICABLE FOR DIALYSIS PATIENTS. HEMOGLOBIN AND [id number] 11:59:00* Test Item Value Reference Range Interpretation Comments HEMOGLOBIN (BEAKER) (test code = 410) 8.0 GM/DL 13.7-17.5 L HEMATOCRIT (BEAKER) (test code = 411) 24.8 % 40.1-51.0 L BLOOD GAS, [id number] 11:29:00* Test Item Value Reference Range Interpretation [...] code = 1819) 60.0 % BASIC METABOLIC [id number] 07:54:00* Test Item Value Reference Range Interpretation [...] FOR DIALYSIS PATIENTS. Specimen markedly ictericBLOOD GAS, [id number] 06:45:00* Test Item Value Reference Range Interpretation [...] code = 1819) 75.0 % BASIC METABOLIC [id number] 06:44:00* Test Item Value Reference Range Interpretation [...] APPLICABLE FOR DIALYSIS PATIENTS. Specimen markedly ictericPOCT-GLUCOSE [id number] 06:22:00* Test Item Value Reference Range Interpretation Comments POC-GLUCOSE METER (BEAKER) (test code = 1538) 145 mg/dL 70-110 H TESTED AT [facility] [address] [facility] [address] [id number] 06:17:00* Test Item Value Reference Range Interpretation Comments MAGNESIUM (BEAKER) (test code = 627) 2.2 mg/dL 1.6-2.6 HEPATIC FUNCTION [id number] 06:17:00* Test Item Value Reference Range Interpretation [...] U/L 6-55 H Specimen markedly ictericBLOOD GAS, [id number] 06:04:00* Test Item Value Reference Range Interpretation [...] 75.0 % RAD, CHEST, 1 VIEW, NON [id number] 05:48:00Reason for exam:->pulmonary edemaShould this be performed [...] MDReport Verified Date/Time: 06/09/2018 05:48:52 Reading Location: [address] Neuro Reading Room D GAS, [id number] 04:53:00* Test Item Value Reference Range Interpretation [...] (test code = 1819) 75.0 % CALCIUM, [id number] 04:52:00* Test Item Value Reference Range Interpretation Comments CALCIUM IONIZED (BEAKER) (test code = 698) 1.08 mmol/L 1.12-1.27 L PH, BLOOD (BEAKER) (test code = 1810) 7.55 POCT-GLUCOSE [id number] 04:32:00* Test Item Value Reference Range Interpretation Comments POC-GLUCOSE METER (BEAKER) (test code = 1538) 144 mg/dL 70-110 H TESTED AT [facility] [address] [facility] [address] CBC W/PLT COUNT & AUTO [id number] 04:27:00* Test Item Value Reference Range Interpretation [...] code = 2801) 3 % 0-1 H [id number] 04:21:00* Test Item Value Reference Range Interpretation Comments PARTIAL THROMBOPLASTIN TIME (BEAKER) (test code = 760) 49.5 seconds 22.5-36.0 H PROTHROMBIN [id number] 04:20:00* Test Item Value Reference Range Interpretation Comments PROTIME (BEAKER) (test code = 759) 17.8 seconds 11.7-14.7 H INR (BEAKER) (test code = 370) 1.5 <=5.9 RECOMMENDED COUMADIN/WARFARIN INR THERAPY RANGESSTANDARD DOSE: 2.0 - 3.0 Inclu herb: PROPHYLAXIS for venous thrombosis, systemic embolization; TREATMENT for giulia ous thrombosis and/or pulmonary embolus.HIGH RISK: Target INR is 2.5-3.5 for pat ients with mechanical heart valves.POCT-GLUCOSE [id number] 03:44:00* Test Item Value Reference Range Interpretation Comments POC-GLUCOSE METER (BEAKER) (test code = 1538) 147 mg/dL 70-110 H TESTED AT [address] [address] BASIC METABOLIC [id number] 03:13:00* Test Item Value Reference Range Interpretation [...] APPLICABLE FOR DIALYSIS PATIENTS. Specimen markedly ictericPOCT-GLUCOSE [id number] 02:34:00* Test Item Value Reference Range Interpretation Comments POC-GLUCOSE METER (BEAKER) (test code = 1538) 158 mg/dL 70-110 H TESTED AT [place] [id number] [facility] [address] POCT-GLUCOSE [id number] 01:37:00* Test Item Value Reference Range Interpretation Comments POC-GLUCOSE METER (BEAKER) (test code = 1538) 158 mg/dL 70-110 H TESTED AT [place] [id number] [facility] [address] POCT-GLUCOSE [id number] 23:59:00* Test Item Value Reference Range Interpretation Comments POC-GLUCOSE METER (BEAKER) (test code = 1538) 150 mg/dL 70-110 H TESTED AT [facility] [address] [place] [address] [id number] 22:28:00* Test Item Value Reference Range Interpretation Comments MAGNESIUM (BEAKER) (test code = 627) 2.4 mg/dL 1.6-2.6 Specimen slightly hemolyzed Check Serum Potassium level 2 hours after oral potassium replacement completed o r 30 min after intravenous potassium replacement.[id number] 21:44:00* Test Item Value Reference Range Interpretation Comments POTASSIUM (BEAKER) (test code = 379) 3.6 meq/L 3.5-5.1 Specimen slightly hemolyzed Check Serum Potassium level 2 hours after oral potassium replacement completed o r 30 min after intravenous potassium replacement.CALCIUM, [id number] 21:20:00* Test Item Value Reference Range Interpretation Comments CALCIUM IONIZED (BEAKER) (test code = 698) 1.06 mmol/L 1.12-1.27 L PH, BLOOD (BEAKER) (test code = 1810) 7.52 Check serum Ionized Calcium level after 4 hours after IV Calcium replacement. BASIC METABOLIC [id number] 20:46:00* Test Item Value Reference Range Interpretation [...] APPLICABLE FOR DIALYSIS PATIENTS. Specimen markedly ictericPOCT-GLUCOSE [id number] 20:42:00* Test Item Value Reference Range Interpretation Comments POC-GLUCOSE METER (BEAKER) (test code = 1538) 158 mg/dL 70-110 H TESTED AT [address] [address] BLOOD [id number] 20:01:00* Test Item Value Reference Range Interpretation Comments CULTURE (BEAKER) (test code = 1095) No growth in 5 days BLOOD [id number] 20:01:00* Test Item Value Reference Range Interpretation Comments CULTURE (BEAKER) (test code = 1095) No growth in 5 days BLOOD GAS, [id number] 18:23:00* Test Item Value Reference Range Interpretation [...] (test code = 1819) 75.0 % POCT-GLUCOSE [id number] 18:21:00* Test Item Value Reference Range Interpretation Comments POC-GLUCOSE METER (BEAKER) (test code = 1538) 145 mg/dL 70-110 H TESTED AT [address] [address] POCT-GLUCOSE [id number] 18:21:00* Test Item Value Reference Range Interpretation Comments POC-GLUCOSE METER (BEAKER) (test code = 1538) 122 mg/dL 70-110 H TESTED AT [address] [address] CORTISOL,60 [id number] 18:04:00* Test Item Value Reference Range Interpretation [...] to a study by Debbie et al ([facility] 2000,283(8):4071-45), the ACTH Stimulation Test provides important prognostic [...] level 60 minutes after cosyntropin administration. CORTISOL,30 [id number] 17:15:00* Test Item Value Reference Range Interpretation [...] a study by Debbie et al ([facility] [place] 2000,283(8):9011-45), the ACTH Stimulation Test provides important prognostic [...] level 60 minutes after cosyntropin administration.POCT- GLUCOSE [id number] 15:59:00* Test Item Value Reference Range Interpretation Comments POC-GLUCOSE METER (GAURAVAKER) (test code = 1538) 162 mg/dL 70-110 H TESTED AT [facility] [address] [place] [address] CORTISOL,[id number] 14:41:00* Test Item Value Reference Range Interpretation [...] to a study by Debbie et al ([facility] 2000,283(8):5771-45), the ACTH Stimulation Test provides important prognostic [...] level 60 minutes after cosyntropin administration.POCT- GLUCOSE [id number] 13:55:00* Test Item Value Reference Range Interpretation Comments POC-GLUCOSE METER ([facility]) (test code = 1538) 158 mg/dL 70-110 H TESTED AT [facility] [address] [place] [address] POCT-GLUCOSE [id number] 13:55:00* Test Item Value Reference Range Interpretation Comments POC-GLUCOSE METER ([facility]) (test code = 1538) 117 mg/dL 70-110 H TESTED AT [place] [id number] [facility] [address] BASIC METABOLIC [id number] 13:17:00* Test Item Value Reference Range Interpretation [...] NOT APPLICABLE FOR DIALYSIS PATIENTS. Specimen markedly [id number] 13:13:00* Test Item Value Reference Range Interpretation Comments MAGNESIUM ([facility]) (test code = 627) 2.5 mg/dL 1.6-2.6 POCT-GLUCOSE [id number] 12:15:00* Test Item Value Reference Range Interpretation Comments POC-GLUCOSE METER ([facility]) (test code = 1538) 139 mg/dL 70-110 H TESTED AT [place] [id number] [facility] [address] BLOOD GAS, [id number] 11:28:00* Test Item Value Reference Range Interpretation [...] (BEAKER) (test code = 1819) 75.0 % [id number] 09:54:00* Test Item Value Reference Range Interpretation Comments MAGNESIUM (BEAKER) (test code = 627) 2.5 mg/dL 1.6-2.6 Specimen slightly hemolyzed CALCIUM, [id number] 09:22:00* Test Item Value Reference Range Interpretation Comments CALCIUM IONIZED (BEAKER) (test code = 698) 1.08 mmol/L 1.12-1.27 L PH, BLOOD (BEAKER) (test code = 1810) 7.48 Check serum Ionized Calcium level after 4 hours after IV Calcium replacement.CT, CHEST, WITHOUT [id number] 09:01:00FINAL REPORT CT scan of the chest, [...] [place] Verified Date/Time: 06/08/2018 09:01:11 Reading Location: [address] Consult Reading Room , [id number] 09:01:00FINAL REPORT CT scan of the chest, [...] [place] Verified Date/Time: 06/08/2018 09:01:11 Reading Location: [address] Ortho Consult Reading Room -GLUCOSE [id number] 06:37:00* Test Item Value Reference Range Interpretation Comments POC-GLUCOSE METER (BEAKER) (test code = 1538) 142 mg/dL 70-110 H TESTED AT [facility] [address] [place] [address] BLOOD GAS, [id number] 06:34:00* Test Item Value Reference Range Interpretation [...] (BEAKER) (test code = 1819) 90.0 % [id number] 06:11:00* Test Item Value Reference Range Interpretation Comments PARTIAL THROMBOPLASTIN TIME (BEAKER) (test code = 760) 54.2 seconds 22.5-36.0 H PROTHROMBIN [id number] 06:10:00* Test Item Value Reference Range Interpretation [...] pat ients with mechanical heart valves.HEPATIC FUNCTION [id number] 05:51:00* Test Item Value Reference Range Interpretation [...] U/L 6-55 H Specimen markedly ictericBASIC METABOLIC [id number] 05:51:00* Test Item Value Reference Range Interpretation [...] APPLICABLE FOR DIALYSIS PATIENTS. Specimen markedly ictericPOCT-GLUCOSE [id number] 05:43:00* Test Item Value Reference Range Interpretation Comments POC-GLUCOSE METER (BEAKER) (test code = 1538) 140 mg/dL 70-110 H TESTED AT [facility] [address] [facility] [address] [id number] 05:36:00* Test Item Value Reference Range Interpretation Comments MAGNESIUM (BEAKER) (test code = 627) 2.3 mg/dL 1.6-2.6 [id number] 05:25:00* Test Item Value Reference Range Interpretation Comments PHOSPHORUS (BEAKER) (test code = 604) 4.9 mg/dL 2.3-4.7 H Specimen slightly hemolyzed Check Serum Phosphorus level 4 hours after IV phosphorus replacement or 8 hours after PO replacement completed.POCT-GLUCOSE [id number] 04:20:00* Test Item Value Reference Range Interpretation Comments POC-GLUCOSE METER (BEAKER) (test code = 1538) 153 mg/dL 70-110 H TESTED AT [address] [address] RAD, CHEST, 1 VIEW, NON [id number] 04:10:00Reason for exam:->s/p intubation FINAL REPORT CLINICAL [...] V erified Date/Time: 06/08/2018 04:10:15 Reading Location: [address] Reading Room W/PLT COUNT & AUTO [id number] 03:53:00* Test Item Value Reference Range Interpretation [...] = 2801) 2 % 0-1 H CALCIUM, [id number] 02:54:00* Test Item Value Reference Range Interpretation Comments CALCIUM IONIZED (BEAKER) (test code = 698) 1.09 mmol/L 1.12-1.27 L PH, BLOOD (BEAKER) (test code = 1810) 7.45 Check serum Ionized Calcium level after 4 hours after IV Calcium replacement. BLOOD GAS, [id number] 02:54:00* Test Item Value Reference Range Interpretation [...] 100.0 % RAD, CHEST, 1 VIEW, NON [id number] 02:16:00Reason for exam:->tachypneaFINAL REPORT CLINICAL INDICATION: Kidney [...] Verified Date/Time: 0 06/08/2018 02:16:21 Reading Location: [address] Reading Room E lectronically signed by: KATHERINE REICH M.D. on 06/08/2018 02:16 AM BASIC METABOLIC [id number] 01:44:00* Test Item Value Reference Range Interpretation [...] APPLICABLE FOR DIALYSIS PATIENTS. Specimen markedly ictericPOCT-GLUCOSE [id number] 01:18:00* Test Item Value Reference Range Interpretation Comments POC-GLUCOSE METER (BEAKER) (test code = 1538) 122 mg/dL 70-110 H TESTED AT [facility] [address] [facility] [address] BLOOD GAS, [id number] 01:03:00* Test Item Value Reference Range Interpretation [...] (test code = 1819) 100.0 % POCT-GLUCOSE [id number] 00:19:00* Test Item Value Reference Range Interpretation Comments POC-GLUCOSE METER (BEAKER) (test code = 1538) 136 mg/dL 70-110 H TESTED AT [address] [address] BLOOD GAS, [id number] 23:19:00* Test Item Value Reference Range Interpretation [...] (test code = 1819) 40.0 % POCT-GLUCOSE [id number] 22:58:00* Test Item Value Reference Range Interpretation Comments POC-GLUCOSE METER (BEAKER) (test code = 1538) 128 mg/dL 70-110 H TESTED AT [address] [address] POCT-GLUCOSE [id number] 22:00:00* Test Item Value Reference Range Interpretation Comments POC-GLUCOSE METER (BEAKER) (test code = 1538) 108 mg/dL 70-110 TESTED AT [address] [address] BASIC METABOLIC [id number] 21:50:00* Test Item Value Reference Range Interpretation [...] NOT APPLICABLE FOR DIALYSIS PATIENTS. Specimen markedly [id number] 21:38:00* Test Item Value Reference Range Interpretation Comments MAGNESIUM (BEAKER) (test code = 627) 2.0 mg/dL 1.6-2.6 CALCIUM, [id number] 21:15:00* Test Item Value Reference Range Interpretation Comments CALCIUM IONIZED (BEAKER) (test code = 698) 1.12 mmol/L 1.12-1.27 PH, BLOOD (BEAKER) (test code = 1810) 7.51 Check serum Ionized Calcium level after 4 hours after IV Calcium replacement. POCT-GLUCOSE [id number] 20:58:00* Test Item Value Reference Range Interpretation Comments POC-GLUCOSE METER (BEAKER) (test code = 1538) 97 mg/dL 70-110 [address]ED AT [address] [address] POCT-GLUCOSE [id number] 19:42:00* Test Item Value Reference Range Interpretation Comments POC-GLUCOSE METER (BEAKER) (test code = 1538) 101 mg/dL 70-110 TESTED AT [address] [address] POCT-GLUCOSE [id number] 18:42:00* Test Item Value Reference Range Interpretation Comments POC-GLUCOSE METER (BEAKER) (test code = 1538) 97 mg/dL 70-110 TESTED AT [address] [address] BLOOD GAS, [id number] 16:56:00* Test Item Value Reference Range Interpretation [...] (test code = 1819) 100.0 % POCT-GLUCOSE [id number] 16:45:00* Test Item Value Reference Range Interpretation Comments POC-GLUCOSE METER (BEAKER) (test code = 1538) 149 mg/dL 70-110 H TESTED AT [facility] [address] [facility] [address] POCT-GLUCOSE [id number] 15:25:00* Test Item Value Reference Range Interpretation Comments POC-GLUCOSE METER (BEAKER) (test code = 1538) 74 mg/dL 70-110 TESTED AT [place] [id number] [facility] [address] POCT-GLUCOSE [id number] 14:31:00* Test Item Value Reference Range Interpretation Comments POC-GLUCOSE METER (BEAKER) (test code = 1538) 129 mg/dL 70-110 H TESTED AT [facility] [address] [facility] [address] [id number] 13:46:00* Test Item Value Reference Range Interpretation Comments MAGNESIUM (BEAKER) (test code = 627) 1.8 mg/dL 1.6-2.6 BASIC METABOLIC [id number] 13:46:00* Test Item Value Reference Range Interpretation [...] APPLICABLE FOR DIALYSIS PATIENTS. Specimen markedly ictericPOCT-GLUCOSE [id number] 13:03:00* Test Item Value Reference Range Interpretation Comments POC-GLUCOSE METER (BEAKER) (test code = 1538) 182 mg/dL 70-110 H TESTED AT [facility] [address] [facility] [address] ANTI-MITOCHONDRIAL AB, REFLEX TO [id number] 11:38:00* Test Item Value Reference Range Interpretation Comments SCAN RESULT (test code = 7386087) CBC W/PLT COUNT & AUTO [id number] 11:36:00* Test Item Value Reference Range Interpretation [...] Received comment: User comments: Slide comments: POCT-GLUCOSE [id number] 11:35:00* Test Item Value Reference Range Interpretation Comments POC-GLUCOSE METER (BEAKER) (test code = 1538) 128 mg/dL 70-110 H TESTED AT [facility] [address] [facility] [address] POCT-GLUCOSE [id number] 11:13:00* Test Item Value Reference Range Interpretation Comments POC-GLUCOSE METER (BEAKER) (test code = 1538) 97 mg/dL 70-110 TESTED AT [address] [address] POCT-GLUCOSE [id number] 11:13:00* Test Item Value Reference Range Interpretation Comments POC-GLUCOSE METER (BEAKER) (test code = 1538) 68 mg/dL 70-110 L TESTED AT [address] [address] BLOOD GAS, [id number] 10:41:00* Test Item Value Reference Range Interpretation [...] code = 1819) 100.0 % CATHETER TIP [id number] 09:30:00* Test Item Value Reference Range Interpretation Comments CULTURE (BEAKER) (test code = 1095) No growth BLOOD GAS, [id number] 08:13:00* Test Item Value Reference Range Interpretation [...] (test code = 1819) 65.0 % POCT-GLUCOSE [id number] 07:48:00* Test Item Value Reference Range Interpretation Comments POC-GLUCOSE METER (BEAKER) (test code = 1538) 127 mg/dL 70-110 H TESTED AT [facility] [address] [facility] [address] RAD, CHEST, 1 VIEW, NON [id number] 07:37:00Reason for exam:->resp failureShould this be performed [...] Garcia Verified Date/Time: 06/07/2018 07:37:40 Reading Location: [facility] Radiology Reading Room -GLUCOSE METER 2018-06-07 06:32:00* Test Item Value Reference Range Interpretation Comments POC-GLUCOSE METER (BEAKER) (test code = 1538) 165 mg/dL 70-110 H TESTED AT [facility] [address] [facility] [address] BLOOD GAS, [id number] 05:35:00* Test Item Value Reference Range Interpretation [...] (test code = 1819) 60.0 % CALCIUM, [id number] 05:35:00* Test Item Value Reference Range Interpretation Comments CALCIUM IONIZED (BEAKER) (test code = 698) 0.96 mmol/L 1.12-1.27 L PH, BLOOD (BEAKER) (test code = 1810) 7.45 HEPATIC FUNCTION [id number] 05:32:00* Test Item Value Reference Range Interpretation [...] 103 U/L 6-55 H Specimen markedly ictericPOCT-GLUCOSE [id number] 05:18:00* Test Item Value Reference Range Interpretation Comments POC-GLUCOSE METER (BEAKER) (test code = 1538) 182 mg/dL 70-110 H TESTED AT [facility] [address] [facility] [address] BASIC METABOLIC [id number] 05:17:00* Test Item Value Reference Range Interpretation [...] FOR DIALYSIS PATIENTS. Specimen markedly ictericLACTIC ACID, [id number] 04:58:00* Test Item Value Reference Range Interpretation Comments LACTATE BLOOD ARTERIAL (2) (BEAKER) (test code = 2874) 1.2 mmol/L 0.5-2.2 Specimen markedly [id number] 04:50:00* Test Item Value Reference Range Interpretation Comments PARTIAL THROMBOPLASTIN TIME (BEAKER) (test code = 760) 43.5 seconds 22.5-36.0 H PROTHROMBIN [id number] 04:49:00* Test Item Value Reference Range Interpretation Comments PROTIME (BEAKER) (test code = 759) 18.1 seconds 11.7-14.7 H INR (BEAKER) (test code = 370) 1.5 <=5.9 RECOMMENDED COUMADIN/WARFARIN INR THERAPY RANGESSTANDARD DOSE: 2.0 - 3.0 Inclu herb: PROPHYLAXIS for venous thrombosis, systemic embolization; TREATMENT for giulia ous thrombosis and/or pulmonary embolus.HIGH RISK: Target INR is 2.5-3.5 for pat ients with mechanical heart valves.POCT-GLUCOSE [id number] 04:16:00* Test Item Value Reference Range Interpretation Comments POC-GLUCOSE METER (BEAKER) (test code = 1538) 180 mg/dL 70-110 H TESTED AT [facility] [address] [facility] [address] POCT-GLUCOSE [id number] 03:20:00* Test Item Value Reference Range Interpretation Comments POC-GLUCOSE METER (BEAKER) (test code = 1538) 171 mg/dL 70-110 H TESTED AT [place] [id number] [facility] [address] POCT-GLUCOSE [id number] 02:44:00* Test Item Value Reference Range Interpretation Comments POC-GLUCOSE METER (BEAKER) (test code = 1538) 154 mg/dL 70-110 H TESTED AT [address] [address] POCT-GLUCOSE [id number] 01:31:00* Test Item Value Reference Range Interpretation Comments POC-GLUCOSE METER (BEAKER) (test code = 1538) 140 mg/dL 70-110 H TESTED AT [address] [address] BASIC METABOLIC [id number] 01:02:00* Test Item Value Reference Range Interpretation [...] APPLICABLE FOR DIALYSIS PATIENTS. Specimen markedly ictericPOCT-GLUCOSE [id number] 00:57:00* Test Item Value Reference Range Interpretation Comments POC-GLUCOSE METER (BEAKER) (test code = 1538) 173 mg/dL 70-110 H TESTED AT [address] [address] POCT-GLUCOSE [id number] 23:27:00* Test Item Value Reference Range Interpretation Comments POC-GLUCOSE METER (BEAKER) (test code = 1538) 155 mg/dL 70-110 H TESTED AT [address] [address] BASIC METABOLIC [id number] 22:38:00* Test Item Value Reference Range Interpretation [...] NOT APPLICABLE FOR DIALYSIS PATIENTS. Specimen markedly [id number] 22:37:00* Test Item Value Reference Range Interpretation Comments MAGNESIUM (BEAKER) (test code = 627) 2.0 mg/dL 1.6-2.6 BLOOD GAS, [id number] 22:18:00* Test Item Value Reference Range Interpretation [...] (test code = 1819) 60.0 % CALCIUM, [id number] 22:15:00* Test Item Value Reference Range Interpretation Comments CALCIUM IONIZED (BEAKER) (test code = 698) 1.05 mmol/L 1.12-1.27 L PH, BLOOD (BEAKER) (test code = 1810) 7.46 POCT-GLUCOSE [id number] 22:08:00* Test Item Value Reference Range Interpretation Comments POC-GLUCOSE METER (BEAKER) (test code = 1538) 138 mg/dL 70-110 H TESTED AT [address] [address] POCT-GLUCOSE [id number] 21:16:00* Test Item Value Reference Range Interpretation Comments POC-GLUCOSE METER (BEAKER) (test code = 1538) 158 mg/dL 70-110 H TESTED AT [address] [address] [id number] 21:03:00* Test Item Value Reference Range Interpretation Comments POTASSIUM (BEAKER) (test code = 379) 3.8 meq/L 3.5-5.1 Check Serum Potassium level 2 hours after oral potassium replacement completed o r 30 min after intravenous potassium replacement.[id number] 21:03:00* Test Item Value Reference Range Interpretation Comments MAGNESIUM (BEAKER) (test code = 627) 2.0 mg/dL 1.6-2.6 Check Serum Potassium level 2 hours after oral potassium replacement completed o r 30 min after intravenous potassium replacement.POCT-GLUCOSE [id number] 20:15:00* Test Item Value Reference Range Interpretation Comments POC-GLUCOSE METER (BEAKER) (test code = 1538) 161 mg/dL 70-110 H TESTED AT [address] [address] POCT-GLUCOSE [id number] 20:15:00* Test Item Value Reference Range Interpretation Comments POC-GLUCOSE METER (BEAKER) (test code = 1538) 113 mg/dL 70-110 H TESTED AT [address] [address] POCT-GLUCOSE [id number] 19:33:00* Test Item Value Reference Range Interpretation Comments POC-GLUCOSE METER (BEAKER) (test code = 1538) 169 mg/dL 70-110 H TESTED AT [address] [address] [id number] 17:52:00* Test Item Value Reference Range Interpretation Comments CORTISOL, TOTAL (BEAKER) (test code = 2755) 23.9 ug/dL 3.7-19.4 H C. DIFFICILE GDH [id number] 17:45:00* Test Item Value Reference Range Interpretation Comments CDT TOXIN (test code = 4356680150) Negative Negative CDT GDH ANTIGEN (test code = 5887502585) Positive Negative A C. difficile present but toxin not detected. Indicates colonization with non-toxigenic strain or level of toxin below detectable levels. No need for enteric isolation. Treatment is rarely needed (only when strong clinical suspicion for Clostridium difficile infection) Testing performed by [employer] Rapid Cassette Assay. For GDH, published sensitivity of the assay is 98.7% compared to cytotoxicity testing. For Toxin AB, publishe d sensitivity is 87.8% and specificity 99.4% compared to cytotoxicity testing.Ve rification of kit performance was done by the [facility] Microbiology Lab prior to cl inical use.BASIC METABOLIC [id number] 16:48:00* Test Item Value Reference Range Interpretation [...] APPLICABLE FOR DIALYSIS PATIENTS. Specimen markedly ictericPOCT-GLUCOSE [id number] 15:10:00* Test Item Value Reference Range Interpretation Comments POC-GLUCOSE METER (BEAKER) (test code = 1538) 78 mg/dL 70-110 TESTED AT [facility] [address] [facility] [address] TROPONIN [id number] 13:26:00* Test Item Value Reference Range Interpretation [...] acidosis, acute neurological disease, and per sistent tachyarrhythmia.[id number] 13:14:00* Test Item Value Reference Range Interpretation [...] 0.50 MG/L FEU, the Negative Predictive Value (DIE WELDER V) regarding the exclusion of thrombosis is within 95-100% range.LACTIC ACID, [id number] 13:12:00* Test Item Value Reference Range Interpretation Comments LACTATE BLOOD ARTERIAL (2) (GAURAVAKER) (test code = 2874) 1.3 mmol/L 0.5-2.2 Specimen markedly [id number] 12:57:00* Test Item Value Reference Range Interpretation Comments MAGNESIUM (BEAKER) (test code = 627) 2.1 mg/dL 1.6-2.6 POCT-GLUCOSE [id number] 12:21:00* Test Item Value Reference Range Interpretation Comments POC-GLUCOSE METER (GAURAVAKER) (test code = 1538) 162 mg/dL 70-110 H TESTED AT [facility] [address] [facility] [address] BLOOD [id number] 12:01:00* Test Item Value Reference Range Interpretation Comments CULTURE (GAURAVAKER) (test code = 1095) No growth in 5 days BLOOD [id number] 12:01:00* Test Item Value Reference Range Interpretation Comments CULTURE (BEAKER) (test code = 1095) No growth in 5 days YARI ANTIGEN WITH REFLEX TO [id number] 11:08:00* Test Item Value Reference Range Interpretation Comments YARI ANTIGEN (BEAKER) (test code = 1782) Positive YARI ANTIGEN [id number] 11:08:00* Test Item Value Reference Range Interpretation Comments YARI ANTIGEN TITER (BEAKER) (test code = 737) :4 POCT-GLUCOSE [id number] 11:00:00* Test Item Value Reference Range Interpretation Comments POC-GLUCOSE METER (BEAKER) (test code = 1538) 153 mg/dL 70-110 H TESTED AT [facility] [address] [place] [address] RAD, CHEST, 1 VIEW, NON [id number] 10:38:00Reason for exam:->oxygen desaturation in setting of [...] [place] Verified Date/Time: 06/06/2018 10:38:12 Reading Location: [facility] Radiology Reading Room -NUCLEAR ANTIBODY (TOM)2018-06-06 [...] (BEAKER) (test code = 1819) 100.0 % [id number] 09:37:00* Test Item Value Reference Range Interpretation Comments LIPASE (BEAKER) (test code = 749) 6 U/L 8-78 L Specimen markedly ictericHEPATIC FUNCTION [id number] 09:37:00* Test Item Value Reference Range Interpretation [...] 347) 105 U/L 6-55 H Specimen markedly [id number] 09:36:00* Test Item Value Reference Range Interpretation Comments AMYLASE (BEAKER) (test code = 349) 17 U/L 25-125 L Specimen markedly [id number] 09:24:00* Test Item Value Reference Range Interpretation Comments CORTISOL, TOTAL (BEAKER) (test code = 2755) 19.9 ug/dL 3.7-19.4 H SPUTUM CULTURE + GRAM [id number] 08:59:00* Test Item Value Reference Range Interpretation Comments CULTURE (BEAKER) (test code = 1095) No growth GRAM STAIN RESULT (BEAKER) (test code = 1123) 3+ WBCs GRAM STAIN RESULT (BEAKER) (test code = 88449) 0-5 epithelial cells GRAM STAIN RESULT (BEAKER) (test code = 42924) No organisms seen BRONCHIAL CULTURE + GRAM [id number] 08:58:00* Test Item Value Reference Range Interpretation Comments CULTURE (BEAKER) (test code = 1095) <1+ Normal respiratory chase pr esent GRAM STAIN RESULT (BEAKER) (test code = 1123) 4+ WBCs GRAM STAIN RESULT (BEAKER) (test code = 80575) No organisms seen BRONCHIAL CULTURE + GRAM [id number] 08:58:00* Test Item Value Reference Range Interpretation Comments CULTURE (BEAKER) (test code = 1095) No growth GRAM STAIN RESULT (BEAKER) (test code = 1123) 1+ WBCs GRAM STAIN RESULT (BEAKER) (test code = 82139) No organisms seen POCT-GLUCOSE [id number] 08:15:00* Test Item Value Reference Range Interpretation Comments POC-GLUCOSE METER (BEAKER) (test code = 1538) 117 mg/dL 70-110 H TESTED AT [facility] [address] [facility] [address] CBC W/PLT COUNT & AUTO [id number] 07:36:00* Test Item Value Reference Range Interpretation [...] comment: User comments: Slide comments: BLOOD GAS, [id number] 06:28:00* Test Item Value Reference Range Interpretation [...] (test code = 1819) 80.0 % POCT-GLUCOSE [id number] 06:21:00* Test Item Value Reference Range Interpretation Comments POC-GLUCOSE METER (BEAKER) (test code = 1538) 130 mg/dL 70-110 H TESTED AT [facility] [address] [facility] [address] RAD, CHEST, 1 VIEW, NON [id number] 05:21:00Reason for exam:->hypoxiaShould this be performed at [...] Avendaño Verified Date/Time: 06/06/2018 05:21:30 Reading Location: [address] Neuro Reading Room -GLUCOSE [id number] 05:10:00* Test Item Value Reference Range Interpretation Comments POC-GLUCOSE METER (BEAKER) (test code = 1538) 144 mg/dL 70-110 H TESTED AT [facility] [address] [facility] [address] POCT-GLUCOSE [id number] 04:17:00* Test Item Value Reference Range Interpretation Comments POC-GLUCOSE METER (BEAKER) (test code = 1538) 161 mg/dL 70-110 H TESTED AT [facility] [address] [facility] [address] [id number] 04:06:00* Test Item Value Reference Range Interpretation Comments PHOSPHORUS (BEAKER) (test code = 604) 3.8 mg/dL 2.3-4.7 Check Serum Phosphorus level 4 hours after IV phosphorus replacement or 8 hours after PO replacement completed.[id number] 04:06:00* Test Item Value Reference Range Interpretation Comments MAGNESIUM (BEAKER) (test code = 627) 2.5 mg/dL 1.6-2.6 Check Serum Phosphorus level 4 hours after IV phosphorus replacement or 8 hours after PO replacement completed.BASIC METABOLIC [id number] 04:06:00* Test Item Value Reference Range Interpretation [...] 8 hours after PO replacement completed.Specimen markedly [id number] 04:02:00 * Test Item Value Reference Range Interpretation Comments PARTIAL THROMBOPLASTIN TIME (BEAKER) (test code = 760) 44.7 seconds 22.5-36.0 H PROTHROMBIN [id number] 04:00:00* Test Item Value Reference Range Interpretation [...] pat ients with mechanical heart valves.BLOOD GAS, [id number] 03:38:00* Test Item Value Reference Range Interpretation [...] code = 1819) 70.0 % BASIC METABOLIC [id number] 03:34:00* Test Item Value Reference Range Interpretation [...] APPLICABLE FOR DIALYSIS PATIENTS. Specimen markedly ictericPOCT-GLUCOSE [id number] 03:19:00* Test Item Value Reference Range Interpretation Comments POC-GLUCOSE METER (BEAKER) (test code = 1538) 171 mg/dL 70-110 H TESTED AT [address] [address] POCT-GLUCOSE [id number] 02:34:00* Test Item Value Reference Range Interpretation Comments POC-GLUCOSE METER (BEAKER) (test code = 1538) 201 mg/dL 70-110 H TESTED AT [address] [address] POCT-GLUCOSE [id number] 01:17:00* Test Item Value Reference Range Interpretation Comments POC-GLUCOSE METER (BEAKER) (test code = 1538) 174 mg/dL 70-110 H TESTED AT [address] [address] [id number] 00:15:00* Test Item Value Reference Range Interpretation Comments MAGNESIUM (BEAKER) (test code = 627) 2.3 mg/dL 1.6-2.6 POCT-GLUCOSE [id number] 00:10:00* Test Item Value Reference Range Interpretation Comments POC-GLUCOSE METER (BEAKER) (test code = 1538) 143 mg/dL 70-110 H TESTED AT [address] [address] POCT-GLUCOSE [id number] 23:18:00* Test Item Value Reference Range Interpretation Comments POC-GLUCOSE METER (BEAKER) (test code = 1538) 145 mg/dL 70-110 H TESTED AT [address] [address] POCT-GLUCOSE [id number] 22:18:00* Test Item Value Reference Range Interpretation Comments POC-GLUCOSE METER (BEAKER) (test code = 1538) 186 mg/dL 70-110 H TESTED AT [address] [address] POCT-GLUCOSE [id number] 21:23:00* Test Item Value Reference Range Interpretation Comments POC-GLUCOSE METER (BEAKER) (test code = 1538) 220 mg/dL 70-110 H TESTED AT [address] [id number] POCT-GLUCOSE [id number] 20:47:00* Test Item Value Reference Range Interpretation Comments POC-GLUCOSE METER (BEAKER) (test code = 1538) 248 mg/dL 70-110 H TESTED AT [address] [address] POCT-GLUCOSE [id number] 19:10:00* Test Item Value Reference Range Interpretation Comments POC-GLUCOSE METER (BEAKER) (test code = 1538) 236 mg/dL 70-110 H TESTED AT [address] [address] POCT-GLUCOSE [id number] 18:16:00* Test Item Value Reference Range Interpretation Comments POC-GLUCOSE METER (BEAKER) (test code = 1538) 275 mg/dL 70-110 H TESTED AT [address] [address] BLOOD GAS, [id number] 17:21:00* Test Item Value Reference Range Interpretation [...] (test code = 1819) 60.0 % POCT-GLUCOSE [id number] 17:12:00* Test Item Value Reference Range Interpretation Comments POC-GLUCOSE METER (BEAKER) (test code = 1538) 304 mg/dL 70-110 H Will Repeat Test/TESTED AT [address] [address] POCT-GLUCOSE [id number] 16:01:00* Test Item Value Reference Range Interpretation Comments POC-GLUCOSE METER (BEAKER) (test code = 1538) 302 mg/dL 70-110 H TESTED AT [facility] [address] [facility] [address] BLOOD GAS, [id number] 14:06:00* Test Item Value Reference Range Interpretation [...] (BEAKER) (test code = 1819) 70.0 % [id number] 13:25:00* Test Item Value Reference Range Interpretation Comments POTASSIUM (BEAKER) (test code = 379) 4.1 meq/L 3.5-5.1 Specimen slightly hemolyzed [id number] 13:25:00* Test Item Value Reference Range Interpretation Comments GLUCOSE RANDOM (BEAKER) (test code = 652) 346 mg/dL 70-105 H BASIC METABOLIC [id number] 13:18:00* Test Item Value Reference Range Interpretation [...] NOT APPLICABLE FOR DIALYSIS PATIENTS. Specimen markedly [id number] 13:17:00* Test Item Value Reference Range Interpretation Comments MAGNESIUM (BEAKER) (test code = 627) 2.4 mg/dL 1.6-2.6 Specimen slightly hemolyzed BASIC METABOLIC [id number] 13:17:00* Test Item Value Reference Range Interpretation [...] APPLICABLE FOR DIALYSIS PATIENTS. Specimen markedly ictericPOCT-GLUCOSE [id number] 11:46:00* Test Item Value Reference Range Interpretation Comments POC-GLUCOSE METER (BEAKER) (test code = 1538) 297 mg/dL 70-110 H TESTED AT [facility] [address] [facility] [address] RAD, CHEST, 1 VIEW, NON [id number] 11:28:00Reason for exam:->resp failureShould this be performed at the bedside?->YesFINAL REPORT AP chest HISTORY: Respiratory failure. COMPARISON: 06/04/2018. IMPRESSION: Supportive lines unchanged. Hypoinflation. Asymmetric interstitial opacities, left greater than right, increased from previous. No pneumothorax. Signed: Eric Andrade MDReport Verified Date/Time: 06/05/2018 11:28:49 Reading Location: [facility] Radiology Reading Room IRATORY PANEL [facility] 2018-06-05 09:47:00* Test Item Value Reference [...] decisions. This sample was tested at the [facility] Molecular Diagnostics Laboratory using the Swoopo rray Respiratory Panel. It is FDA cleared and has been verified and approved by the [facility] for clinical use on nasal swab specim ens. It is not FDA-cleared for use on bronchial wash/lavage samples. However, fo r this sample type, validation was performed and test characteristics were deter mined and approved, by [facility] for clinical use u nder the Clinical Laboratory Improvement Amendments (CLIA) of 1988 requirements. Therefore, FDA clearance is not required. This laboratory is CLIA-certified an d [employer] ([employer])-accredited to perform high complexity t esting.CBC W/PLT COUNT & AUTO [id number] 07:05:00* Test Item Value Reference Range Interpretation [...] quate Received comment: User comments: Slide comments: [id number] 06:05:00* Test Item Value Reference Range Interpretation Comments PROCALCITONIN (BEAKER) (test code = 3036) 2.30 ng/mL <0.05 H SEPSIS RISK (ng/mL)Low: 0.05-0.50Intermediate: 0.51-2.00High: > =2.01LACTIC ACID, [id number] 05:39:00* Test Item Value Reference Range Interpretation Comments LACTATE BLOOD ARTERIAL (2) (BEAKER) (test code = 2874) 1.3 mmol/L 0.5-2.2 Specimen slightly hemolyzed Specimen markedly ictericCALCIUM, [id number] 04:12:00* Test Item Value Reference Range Interpretation Comments CALCIUM IONIZED (BEAKER) (test code = 698) 0.98 mmol/L 1.12-1.27 L PH, BLOOD (BEAKER) (test code = 1810) 7.43 Check serum Ionized Calcium level after 4 hours after IV Calcium replacement. BLOOD GAS, [id number] 04:06:00* Test Item Value Reference Range Interpretation [...] (test code = 1819) 75.0 % PTH, [id number] 04:05:00* Test Item Value Reference Range Interpretation Comments PARATHYROID HORMONE INTACT (BEAKER) (test code = 577) 183.2 pg/mL 8.5-72.5 H [id number] 04:04:00* Test Item Value Reference Range Interpretation Comments PARTIAL THROMBOPLASTIN TIME (BEAKER) (test code = 760) 48.3 seconds 22.5-36.0 H PROTHROMBIN [id number] 04:03:00* Test Item Value Reference Range Interpretation [...] = 380) 90 U/L 29-20 0 POCT-GLUCOSE [id number] 00:47:00* Test Item Value Reference Range Interpretation Comments POC-GLUCOSE METER (BEAKER) (test code = 1538) 277 mg/dL 70-110 H TESTED AT [facility] [address] [facility] [address] CALCIUM, [id number] 00:37:00* Test Item Value Reference Range Interpretation Comments CALCIUM IONIZED (BEAKER) (test code = 698) 0.95 mmol/L 1.12-1.27 L PH, BLOOD (BEAKER) (test code = 1810) 7.44 Check serum Ionized Calcium level after 4 hours after IV Calcium replacement. [id number] 00:36:00* Test Item Value Reference Range Interpretation Comments POTASSIUM (BEAKER) (test code = 379) 3.9 meq/L 3.5-5.1 8 hours after PO replacement [id number] 20:35:00* Test Item Value Reference Range Interpretation Comments MAGNESIUM (BEAKER) (test code = 627) 2.3 mg/dL 1.6-2.6 BASIC METABOLIC [id number] 20:35:00* Test Item Value Reference Range Interpretation [...] FOR DIALYSIS PATIENTS. Specimen markedly ictericU/S, ABDOMINAL, [id number] 18:10:00Abdomen limited area? Add comment if clarification [...] MDReport Verified Date/Time: 06/04/2018 18:10:46 Reading Location: [address] Ultrasound Reading Room -GLUCOSE METER 2018-06-04 17:48:00* Test Item Value Reference Range Interpretation Comments POC-GLUCOSE METER (BEAKER) (test code = 1538) 294 mg/dL 70-110 H TESTED AT [place] [address] CALCIUM, [id number] 15:55:00* Test Item Value Reference Range Interpretation Comments CALCIUM IONIZED (BEAKER) (test code = 698) 0.98 mmol/L 1.12-1.27 L PH, BLOOD (BEAKER) (test code = 1810) 7.50 RAD, ABDOMEN/KUB, 1 VIEW [id number] 14:34:00Reason for exam:->Cortrak placementFINAL REPORT Abdomen. CLINICAL HISTORY: Corpak placement. Comparison study: None available. FINDINGS: A single supine view the abdomen demonstrates a feeding tube in place, the distal aspect coiled near the antrum with the tip projecting over the mid stomach. This film is insensitive for the detection of free air. Signed: Andrew Sloan MDReport Verified Date/Time: 06/04/2018 14:34:10 Reading Location: [address] Consult Reading Room C METABOLIC [id number] 14:26:00* Test Item Value Reference Range Interpretation [...] FOR DIALYSIS PATIENTS. Specimen markedly ictericLACTIC ACID, [id number] 14:09:00* Test Item Value Reference Range Interpretation Comments LACTATE BLOOD ARTERIAL (2) (BEAKER) (test code = 2874) 1.2 mmol/L 0.5-2.2 Specimen markedly ictericPOCT-GLUCOSE [id number] 13:35:00* Test Item Value Reference Range Interpretation Comments POC-GLUCOSE METER (BEAKER) (test code = 1538) 247 mg/dL 70-110 H TESTED AT [facility] [address] [facility] [address] [id number] 11:32:00* Test Item Value Reference Range Interpretation Comments MAGNESIUM (BEAKER) (test code = 627) 2.1 mg/dL 1.6-2.6 Specimen slightly hemolyzed BASIC METABOLIC [id number] 11:32:00* Test Item Value Reference Range Interpretation [...] FOR DIALYSIS PATIENTS. Specimen markedly ictericVANCOMYCIN LEVEL, [id number] 11:20:00* Test Item Value Reference Range Interpretation Comments VANCOMYCIN RANDOM (BEAKER) (test code = 523) 27.0 ug/mL Reference Range: No NormalsURINALYSIS W/ REFLEX URINE [id number] 11:15:00 * Test Item Value Reference Range [...] = 2795) RAD, CHEST, 1 VIEW, NON [id number] 11:01:00Reason for exam:->ETT advancement, L IJ CVC [...] Shields Verified Date/Time: 06/04/2018 11:01:19 Reading Location: [facility] Radiology Reading Room C METABOLIC [id number] 10:59:00* Test Item Value Reference Range Interpretation [...] NOT APPLICABLE FOR DIALYSIS PATIENTS. Specimen markedly [id number] 10:53:00* Test Item Value Reference Range Interpretation Comments AMYLASE (BEAKER) (test code = 349) 32 U/L 25-125 Specimen markedly [id number] 10:53:00* Test Item Value Reference Range Interpretation Comments LIPASE (BEAKER) (test code = 749) 27 U/L 8-78 Specimen markedly ictericBLOOD GAS, [id number] 10:51:00* Test Item Value Reference Range Interpretation [...] (test code = 368) 5.3 % 4.3-6.1 [id number] 09:15:00* Test Item Value Reference Range Interpretation Comments PROCALCITONIN (BEAKER) (test code = 3036) 2.96 ng/mL <0.05 H SEPSIS RISK (ng/mL)Low: 0.05-0.50Intermediate: 0.51-2.00High: > =2.01RAD, CHEST, 1 VIEW, NON [id number] 09:01:00Reason for exam:->ARDSFINAL REPORT TECHNIQUE: Frontal chest radiograph dated . CLINICAL HISTORY: ARDS COMPARISON STUDY: Chest radiograph dated 9 IMPRESSION:Life support tubes and lines are unchanged. There is stable atelect asis in the left lung base. No pleural effusion or pneumothorax. Cardiomediastin al silhouette is normal in size. No pulmonary edema. No fracture. Signed: Sb [place] Verified Date/Time: 06/04/2018 09:01:21 Reading Location : [facility] Radiology Reading Room IC ACID, [id number] 08:49:00* Test Item Value Reference Range Interpretation Comments LACTATE BLOOD ARTERIAL (2) (BEAKER) (test code = 2874) 1.4 mmol/L 0.5-2.2 Specimen moderately ictericBLOOD GAS, [id number] 05:26:00* Test Item Value Reference Range Interpretation [...] code = 1819) 80.0 % COMPREHENSIVE METABOLIC [id number] 04:41:00* Test Item Value Reference Range Interpretation [...] FOR DIALYSIS PATIENTS. Specimen markedly ictericHEPATIC FUNCTION [id number] 04:41:00* Test Item Value Reference Range Interpretation [...] U/L 6-55 H Specimen markedly ictericLACTIC ACID, [id number] 04:32:00* Test Item Value Reference Range Interpretation Comments LACTATE BLOOD ARTERIAL (2) (BEAKER) (test code = 2874) 1.6 mmol/L 0.5-2.2 Specimen markedly [id number] 04:31:00* Test Item Value Reference Range Interpretation Comments FIBRINOGEN LEVEL (BEAKER) (test code = 658) 592 mg/dl 225-434 H PT/[id number] 04:31:00* Test Item Value Reference Range Interpretation [...] 2.5-3.5 for pat ients with mechanical heart valves.[id number] 04:31:00* Test Item Value Reference Range Interpretation Comments PARTIAL THROMBOPLASTIN TIME (BEAKER) (test code = 760) 41.5 seconds 22.5-36.0 H PROTHROMBIN TIME/[id number] 04:30:00* Test Item Value Reference Range Interpretation [...] mechanical heart valves.CBC W/PLT COUNT & AUTO [id number] 04:15:00* Test Item Value Reference Range Interpretation [...] = 2801) 3 % 0-1 H POCT-GLUCOSE [id number] 23:44:00* Test Item Value Reference Range Interpretation Comments POC-GLUCOSE METER (BEAKER) (test code = 1538) 195 mg/dL 70-110 H TESTED AT [address] [address] RAD, CHEST, 1 VIEW, NON [id number] 21:14:00Reason for exam:->respiratory failure/hypoxiaShould this be performed [...] MDReport Verified Date/Time: 09/2018 21:14:49 Reading Location: [address] Consult Reading Room Electro nically signed by: SADIQ HAINES M.D. on 06/03/2018 09:14 PM FERRITIN 2018-06-03 21:11:00* Test Item Value Reference Range Interpretation Comments FERRITIN (BEAKER) (test code = 361) 1898 ng/mL 5-275 H HEPATITIS B SURFACE [id number] 20:52:00* Test Item Value Reference Range Interpretation Comments HEPATITIS B SURFACE ANTIBODY (BEAKER) (test code = 647) < mIU/mL <8.0 HEPATITIS B SURFACE [id number] 20:51:00* Test Item Value Reference Range Interpretation Comments HEPATITIS B SURFACE ANTIGEN (2) (BEAKER) (test code = 2585) Nonreactive Nonreactive HEPATITIS C [id number] 20:51:00* Test Item Value Reference Range Interpretation Comments HEPATITIS C ANTIBODY (BEAKER) (test code = 367) Nonreactive Nonrea ctive HEPATITIS B CORE ANTIBODY, [id number] 20:51:00* Test Item Value Reference Range Interpretation Comments HEPATITIS B CORE TOTAL ANTIBODY (BEAKER) (test code = 497) N onreactive Nonreactive [id number] 20:48:00* Test Item Value Reference Range Interpretation Comments MAGNESIUM (BEAKER) (test code = 627) 1.9 mg/dL 1.6-2.6 BASIC METABOLIC [id number] 20:48:00* Test Item Value Reference Range Interpretation [...] DIALYSIS PATIENTS. Specimen markedly ictericHEPATITIS A ANTIBODY, [id number] 20:45:00* Test Item Value Reference Range Interpretation Comments HEPATITIS A IGG ANTIBODY (BEAKER) (test code = 2797) Reactive N onreactive A ALPHA FETOPROTEIN (AFP), TUMOR [id number] 20:44:00* Test Item Value Reference Range Interpretation Comments ALPHA-FETOPROTEIN (BEAKER) (test code = 1094) 6.3 ng/mL <10.0 HEPATITIS B CORE ANTIBODY, [id number] 20:44:00* Test Item Value Reference Range Interpretation Comments HEPATITIS B CORE IGM ANTIBODY (BEAKER) (test code = 645) Non reactive Nonreactive HEPATITIS A ANTIBODY, [id number] 20:44:00* Test Item Value Reference Range Interpretation [...] 2590) 40 % 20-5 5 BLOOD GAS, [id number] 20:25:00* Test Item Value Reference Range Interpretation [...] 1819) 100.0 % SPUTUM CULTURE + GRAM [id number] 19:38:00* Test Item Value Reference Range Interpretation Comments CULTURE (BEAKER) (test code = 1095) <1+ Normal respiratory chase pr esent GRAM STAIN RESULT (BEAKER) (test code = 1123) 1+ White blood cells seen GRAM STAIN RESULT (BEAKER) (test code = 35030) 0-5 epithelial cells GRAM STAIN RESULT (BEAKER) (test code = 29508) <1+ gram negative ro ds URINALYSIS W/ REFLEX URINE [id number] 18:20:00* Test Item Value Reference Range Interpretation [...] 514) 3 /LPF SOURCE(BEAKER) (test code = 0205) BLOOD GAS, [id number] 17:17:00* Test Item Value Reference Range Interpretation [...] (BEAKER) (test code = 1819) 60.0 % PUYUS-9-[id number] 16:17:00* Test Item Value Reference Range Interpretation Comments ALPHA-1 ANTITRYPSIN (BEAKER) (test code = 502) > mg/dL 90.00-2 00.00 H [id number] 14:26:00* Test Item Value Reference Range Interpretation Comments MAGNESIUM (BEAKER) (test code = 627) 2.0 mg/dL 1.6-2.6 BASIC METABOLIC [id number] 14:26:00* Test Item Value Reference Range Interpretation [...] FOR DIALYSIS PATIENTS. Specimen markedly ictericBLOOD GAS, [id number] 13:25:00* Test Item Value Reference Range Interpretation [...] code = 1819) 40.0 % VANCOMYCIN LEVEL, [id number] 11:06:00* Test Item Value Reference Range Interpretation Comments VANCOMYCIN TROUGH (BEAKER) (test code = 522) 45.6 ug/mL 10.0-20.0 HH BLOOD GAS, [id number] 09:54:00* Test Item Value Reference Range Interpretation [...] 40.0 % RAD, CHEST, 1 VIEW, NON [id number] 05:04:00Reason for exam:->ARDSFINAL REPORT Chest one view. [...] MDReport Verified Date/Time: 06/03/2018 05:04:55 Reading Location: [facility] C013Y CT Body Reading Room REHENSIVE METABOLIC [...] 700) 405 pg/mL 0-100 H LACTIC ACID, [id number] 04:01:00* Test Item Value Reference Range Interpretation Comments LACTATE BLOOD ARTERIAL (2) (BEAKER) (test code = 3264) 0.7 mmol/L 0.5-2.2 Specimen moderately ictericCBC W/PLT COUNT & AUTO [id number] 03:57:00* Test Item Value Reference Range Interpretation [...] code = 2801) 3 % 0-1 H [id number] 03:48:00* Test Item Value Reference Range Interpretation Comments FIBRINOGEN LEVEL (BEAKER) (test code = 658) 644 mg/dl 225-434 H [id number] 03:48:00* Test Item Value Reference Range Interpretation [...] pat ients with mechanical heart valves.BLOOD GAS, [id number] 03:36:00* Test Item Value Reference Range Interpretation [...] (test code = 1819) 40.0 % POCT-GLUCOSE [id number] 02:21:00* Test Item Value Reference Range Interpretation Comments POC-GLUCOSE METER (BEAKER) (test code = 1538) 225 mg/dL 70-110 H TESTED AT [facility] [address] [facility] [address] [id number] 21:48:00* Test Item Value Reference Range Interpretation Comments MAGNESIUM (BEAKER) (test code = 627) 2.2 mg/dL 1.6-2.6 BASIC METABOLIC [id number] 21:48:00* Test Item Value Reference Range Interpretation [...] NOT APPLICABLE FOR DIALYSIS PATIENTS. Specimen markedly [id number] 17:35:00* Test Item Value Reference Range Interpretation Comments MAGNESIUM (BEAKER) (test code = 627) 2.8 mg/dL 1.6-2.6 H Specimen moderately hemolyzed [id number] 17:35:00* Test Item Value Reference Range Interpretation Comments POTASSIUM (BEAKER) (test code = 379) 4.5 meq/L 3.5-5.1 Specimen moderately hemolyzed [id number] 15:15:00* Test Item Value Reference Range Interpretation Comments PROCALCITONIN (BEAKER) (test code = 3036) 1.58 ng/mL <0.05 H SEPSIS RISK (ng/mL)Low: 0.05-0.50Intermediate: 0.51-2.00High: > =2.01B-TYPE NATRIURETIC FACTOR (BNP)2018-06-02 14:09:00* Test Item Value Reference Range Interpretation Comments B-TYPE NATRIURETIC PEPTIDE (BEAKER) (test code = 700) 286 pg/mL 0-100 H [id number] 13:51:00* Test Item Value Reference Range Interpretation Comments PARTIAL THROMBOPLASTIN TIME (BEAKER) (test code = 760) 42.9 seconds 22.5-36.0 H PROTHROMBIN TIME/[id number] 13:50:00* Test Item Value Reference Range Interpretation [...] pat ients with mechanical heart valves.BLOOD GAS, [id number] 13:33:00* Test Item Value Reference Range Interpretation [...] (test code = 1819) 40.0 % GLUCOSE-STAT [id number] 13:33:00* Test Item Value Reference Range Interpretation Comments GLUCOSE RANDOM (BEAKER) (test code = 652) 174 mg/dL 70-110 H TSH/FREE T4 IF [id number] 07:15:00* Test Item Value Reference Range Interpretation Comments THYROID STIMULATING HORMONE (BEAKER) (test code = 772) 1.76 uIU/mL 0.35-4.94 COMPREHENSIVE METABOLIC [id number] 03:52:00* Test Item Value Reference Range Interpretation [...] Specimen markedly ictericRAD, CHEST, 1 VIEW, NON [id number] 03:35:00Reason for exam:->ARDSFINAL REPORT Chest one view. [...] [place] Verified Date/Time: 06/02/2018 03:35:13 Reading Location: [address] Body Reading Room /[id number] 03:12:00* Test Item Value Reference Range Interpretation [...] 2.5-3.5 for pat ients with mechanical heart valves.[id number] 03:03:00* Test Item Value Reference Range Interpretation Comments FIBRINOGEN LEVEL (BEAKER) (test code = 658) 695 mg/dl 225-434 H LACTIC ACID, [id number] 03:02:00* Test Item Value Reference Range Interpretation Comments LACTATE BLOOD ARTERIAL (2) (BEAKER) (test code = 2874) 0.7 mmol/L 0.5-2.2 Specimen markedly ictericCBC W/PLT COUNT & AUTO [id number] 02:53:00 * Test Item Value Reference Range [...] 2801) 2 % 0-1 H BLOOD GAS, [id number] 02:53:00* Test Item Value Reference Range Interpretation [...] code = 1819) 60.0 % BLOOD GAS, [id number] 00:24:00* Test Item Value Reference Range Interpretation [...] code = 1819) 60.0 % BASIC METABOLIC [id number] 17:38:00* Test Item Value Reference Range Interpretation [...] FOR DIALYSIS PATIENTS. Specimen markedly ictericBLOOD GAS, [id number] 17:10:00* Test Item Value Reference Range Interpretation [...] (test code = 1819) 60.0 % Blood [id number] 17:08:00* Test Item Value Reference Range Interpretation Comments Blood Culture (test code = 09327071) NO GROWTH AFTER 5 DAYS, [facility], ABDOMINAL, [id number] 15:11:00Abdomen limited area? Add comment if clarification [...] MDReport Verified Date/Time: 06/01/2018 15:11:50 Reading Location: [facility] B1 C013X Ortho Consult Reading Room A GLUTAMYL TRANSFERASE (GGT) 2018-06-01 14:41:00* Test Item Value Reference Range Interpretation Comments GAMMA GLUTAMYL TRANSFERASE (BEAKER) (test code = 364) 136 U/L 9-64 H Specimen markedly ictericBLOOD GAS, [id number] 14:18:00* Test Item Value Reference Range Interpretation [...] = 1819) 60.0 % CT, CHEST, WITHOUT [id number] 13:38:00FINAL REPORT TECHNIQUE: CT of the chest, [...] rt Verified Date/Time: 06/01/2018 13:38:09 Reading Location: [address] Reading Room Electronically signed by: KYLE RAE MD on 07/2018 01:[address], [id number] 13:38:00FINAL REPORT TECHNIQUE: CT of the chest, [...] rt Verified Date/Time: 06/01/2018 13:38:09 Reading Location: [facility] C013X Ortho Consult Reading Room Electronically signed by: KYLE RAE MD on 07/2018 01:[address], BRAIN, WITHOUT [id number] 13:10:00FINAL REPORT CT, BRAIN, WITHOUT CONTRAST CLINICAL [...] Verified Date/Time: 06/01/2018 13:10:29 Reading Lo cation: [facility] B1 C013V Neuro Reading Room D GAS, [id number] 11:45:00* Test Item Value Reference Range Interpretation [...] 1819) 80.0 % URINALYSIS W/ REFLEX URINE [id number] 11:13:00* Test Item Value Reference Range Interpretation [...] 1414) 16.4 % 0.0-5.0 H COMPREHENSIVE METABOLIC [id number] 10:13:00* Test Item Value Reference Range Interpretation [...] 248 U/L 125-2 20 H HEPATIC FUNCTION [id number] 09:21:00* Test Item Value Reference Range Interpretation [...] = 347) 32 U/L 6-55 Specimen markedly [id number] 09:20:00* Test Item Value Reference Range Interpretation Comments FIBRINOGEN LEVEL (BEAKER) (test code = 658) 729 mg/dl 225-434 H PT/[id number] 09:20:00* Test Item Value Reference Range Interpretation [...] 2.5-3.5 for pat ients with mechanical heart valves.[id number] 09:20:00* Test Item Value Reference Range Interpretation Comments PHOSPHORUS (BEAKER) (test code = 604) 3.9 mg/dL 2.3-4.7 [id number] 09:20:00* Test Item Value Reference Range Interpretation Comments MAGNESIUM (BEAKER) (test code = 627) 2.3 mg/dL 1.6-2.6 LACTIC ACID, [id number] 09:17:00* Test Item Value Reference Range Interpretation Comments LACTATE BLOOD ARTERIAL (2) (BEAKER) (test code = 2874) 0.7 mmol/L 0.5-2.2 Specimen markedly ictericCBC W/PLT COUNT & AUTO [id number] 09:13:00 * Test Item Value Reference Range [...] 2801) 3 % 0-1 H OXYGEN SATURATION, [id number] 09:07:00* Test Item Value Reference Range Interpretation Comments O2 SATURATION (MEASURED) (BEAKER) (test code = 1455) 80.9 % CALCIUM, [id number] 09:06:00* Test Item Value Reference Range Interpretation Comments CALCIUM IONIZED (BEAKER) (test code = 698) 1.01 mmol/L 1.12-1.27 L PH, BLOOD (BEAKER) (test code = 1810) 7.40 BLOOD GAS, [id number] 09:05:00* Test Item Value Reference Range Interpretation [...] code = 1819) 100.0 % SODIUM NA-STAT [id number] 09:05:00* Test Item Value Reference Range Interpretation Comments SODIUM (BEAKER) (test code = 381) 127 meq/L 135-148 L GLUCOSE-STAT [id number] 09:05:00* Test Item Value Reference Range Interpretation Comments GLUCOSE RANDOM (BEAKER) (test code = 652) 181 mg/dL 70-110 H HGB/HCT (H&H) - STAT [id number] 09:05:00* Test Item Value Reference Range Interpretation Comments HEMOGLOBIN (BEAKER) (test code = 410) 10.4 g/dL 13.0-16.8 L HEMATOCRIT (BEAKER) (test code = 411) 31.0 % 40.0-50.0 L POTASSIUM-STAT [id number] 09:02:00* Test Item Value Reference Range Interpretation Comments POTASSIUM (BEAKER) (test code = 379) 4.6 meq/L 3.6-5.5 RAD, CHEST, 1 VIEW, NON [id number] 08:51:00Reason for exam:->ARFShould this be performed at [...] MDReport Verified Date/Time: 06/01/2018 08:51:32 Reading Location: [address] Neuro Reading Room D GAS, [id number] 08:32:00* Test Item Value Reference Range Interpretation [...] code = 1819) 100.0 % SODIUM NA-STAT [id number] 08:32:00* Test Item Value Reference Range Interpretation Comments SODIUM (BEAKER) (test code = 381) 127 meq/L 135-148 L GLUCOSE-STAT [id number] 08:32:00* Test Item Value Reference Range Interpretation Comments GLUCOSE RANDOM (BEAKER) (test code = 652) 171 mg/dL 70-110 H HGB/HCT (H&H) - STAT [id number] 08:32:00* Test Item Value Reference Range Interpretation Comments HEMOGLOBIN (BEAKER) (test code = 410) 10.5 g/dL 13.0-16.8 L HEMATOCRIT (BEAKER) (test code = 411) 31.0 % 40.0-50.0 L CALCIUM, WSOCLUU8487-13-09 08:32:00* Test Item Value Reference Range Interpretation Comments CALCIUM IONIZED (BEAKER) (test code = 698) 1.00 mmol/L 1.12-1.27 L PH, BLOOD (BEAKER) (test code = 1810) 7.43 POTASSIUM-STAT [id number] 08:30:00* Test Item Value Reference Range Interpretation Comments POTASSIUM (BEAKER) (test code = 379) 5.4 meq/L 3.6-5.5 Sodium Aebcx0262-29-81 03:33:00* Test Item Value Reference Range Interpretation Comments Sodium Level (test code = 2951-2) 130 136-[address] [facility] HospitalPotassium Qulad9393-90-47 03:33:00* Test Item Value Reference Range Interpretation Comments Potassium Level (test code = 2823-3) 5.1 3.5-5.1 SPECIMEN SLIGHTLY ICTERICCHI [facility]ieChloride Level 2018-06-01 03:33:00* Test Item Value Reference Range Interpretation Comments Chloride Level (test code = 2075-0) 93 98-[address] [facility] HospitalCarbon Dioxide Wayyb7239-05-09 03:33:00* Test Item Value Reference Range Interpretation Comments Carbon Dioxide Level (test code = 2028-9) 25 22-29 [facility] HospitalAnion Kfz2272-57-63 03:33:00* Test Item Value Reference Range Interpretation Comments Anion Gap (test code = 05080-5) 17.1 8-[address] [facility] HospitalBlood Urea Mxpknvqb7087-10-30 03:33:00* Test Item Value Reference Range Interpretation Comments Blood Urea Nitrogen (test code = 3094-0) 25 7-26 VERIFIED PREVIOUS RESULTSSt. David's Georgetown HospitalCreatinine 2018-06-01 03:33:00* Test Item Value Reference Range Interpretation Comments Creatinine (test code = 2160-0) 1.47 0.72-1.[address] [facility] HospitalBUN/Creatinine Paeid3289-72-52 03:33:00* Test Item Value Reference Range Interpretation Comments BUN/Creatinine Ratio (test code = 3097-3) 17 6-25 [facility] HospitalEstimat Glomerular Filtration Rate 2018-06-01 03:33:00* Test Item Value Reference Range Interpretation Comments Estimat Glomerular Filtration Rate (test code = 863973670) 53 >60 L Ranges were taken from the National Kidney Disease Education Program and the [facility] [employer] literature.Reference ranges:60 or greater: Zmfqkd56-42 ( for 3 consecutive months): Chronic kidney disease 15 or less: Kidney failureSt. David's Georgetown HospitalGlucose Tdfhw0714-40-85 03:33:00* Test Item Value Reference Range Interpretation Comments Glucose Level (test code = WUA2671) 160 74-[address] [facility] HospitalCalcium Jvljg8077-79-55 03:33:00* Test Item Value Reference Range Interpretation Comments Calcium Level (test code = 23714-0) 8.1 8.4-10.[address] [facility] HospitalMagnesium Tkrrk4686-39-12 03:33:00* Test Item Value Reference Range Interpretation Comments Magnesium Level (test code = 23290-5) 2.3 1.3-2.[address] [facility] HospitalMagnesium Ylwsd3674-75-18 03:33:00* Test Item Value Reference Range Interpretation Comments Magnesium Level (test code = 14768-4) 2.3 1.3-2.[address] [facility] HospitalWhite Blood Shsxj5844-27-80 03:21:00* Test Item Value Reference Range Interpretation Comments White Blood Count (test code = 6690-2) 20.59 4.8-10.[address] [facility] HospitalRed Blood Lholp0156-20-55 03:21:00* Test Item Value Reference Range Interpretation Comments Red Blood Count (test code = 789-8) 2.65 4.3-5.[address] [facility] HospitalHemoglobin2019-04-06 03:21:00* Test Item Value Reference Range Interpretation Comments Hemoglobin (test code = 98308-9) 9.6 14.0-18.[address] [facility] HospitalHematocrit2019-04-06 03:21:00* Test Item Value Reference Range Interpretation Comments Hematocrit (test code = 4544-3) 29.1 38.2-49.[address] [facility] HospitalMean Corpuscular Iyptbt4755-19-81 03:21:00* Test Item Value Reference Range Interpretation Comments Mean Corpuscular Volume (test code = 787-2) 109.8 81-[address] [facility] HospitalMean Corpuscular Dbgpepkazp1713-72-41 03:21:00* Test Item Value Reference Range Interpretation Comments Mean Corpuscular Hemoglobin (test code = 785-6) 36.2 28-[address] [facility] HospitalMean Corpuscular Hemoglobin Concent 2018-06-01 03:21:00* Test Item Value Reference Range Interpretation Comments Mean Corpuscular Hemoglobin Concent (test code = 786-4) 33.0 31-35 [facility] HospitalRed Cell Distribution Frqlv2723-68-15 03:21:00* Test Item Value Reference Range Interpretation Comments Red Cell Distribution Width (test code = 60607-7) 13.3 11.7 -14.4 [facility] HospitalPlatelet Cevby3310-74-88 03:21:00* Test Item Value Reference Range Interpretation Comments Platelet Count (test code = 777-3) 321 140-360 [facility] HospitalNeutrophils (%) (Auto)2018-06-01 03:21:00 * Test Item Value Reference Range Interpretation Comments Neutrophils (%) (Auto) (test code = 96312-9) 91.1 38.7-80.[address] [facility] HospitalLymphocytes (%) (Auto)2018-06-01 03:21:00 * Test Item Value Reference Range Interpretation Comments Lymphocytes (%) (Auto) (test code = 736-9) 3.4 18.0-39.[address] [facility] HospitalMonocytes (%) (Auto)2018-06-01 03:21:00* Test Item Value Reference Range Interpretation Comments Monocytes (%) (Auto) (test code = 5905-5) 2.9 4.4-11.[address] [facility] HospitalEosinophils (%) (Auto)2018-06-01 03:21:00 * Test Item Value Reference Range Interpretation Comments Eosinophils (%) (Auto) (test code = 713-8) 0.0 0.0-6.0 [facility] HospitalBasophils (%) (Auto)2018-06-01 03:21:00* Test Item Value Reference Range Interpretation Comments Basophils (%) (Auto) (test code = 706-2) 0.2 0.0-1.0 [facility] HospitalIM GRANULOCYTES %2018-06-01 03:21:00* Test Item Value Reference Range Interpretation Comments IM GRANULOCYTES % (test code = IM GRANULOCYTES %) 2.4 0.0- 1.[address] [facility] HospitalNeutrophils # (Auto)2018-06-01 03:21:00* Test Item Value Reference Range Interpretation Comments Neutrophils # (Auto) (test code = 751-8) 18.8 2.1-6.[address] [facility] HospitalLymphocytes # (Auto)2018-06-01 03:21:00* Test Item Value Reference Range Interpretation Comments Lymphocytes # (Auto) (test code = 39857-7) 0.7 1.0-3.[address] [facility] HospitalMonocytes # (Auto)2018-06-01 03:21:00* Test Item Value Reference Range Interpretation Comments Monocytes # (Auto) (test code = 742-7) 0.6 0.2-0.8 [facility] HospitalEosinophils # (Auto)2018-06-01 03:21:00* Test Item Value Reference Range Interpretation Comments Eosinophils # (Auto) (test code = 711-2) 0.0 0.0-0.4 [facility] HospitalBasophils # (Auto)2018-06-01 03:21:00* Test Item Value Reference Range Interpretation Comments Basophils # (Auto) (test code = 704-7) 0.1 0.0-0.1 [facility] HospitalAbsolute Immature Granulocyte (auto 2018-06-01 03:21:00* Test Item Value Reference Range Interpretation Comments Absolute Immature Granulocyte (auto (doug t code = Absolute Immature Granulocyte (auto) 0.49 0-0.[address] [facility] HospitalArterial Blood cP8149-57-00 00:17:00* Test Item Value Reference Range Interpretation Comments Arterial Blood pH (test code = 2744-1) 7.34 7.31-7.41 [facility] HospitalArterial Blood Partial Pressure CO2 2018-06-01 00:17:00* Test Item Value Reference Range Interpretation Comments Arterial Blood Partial Pressure CO2 (test code = 2018-8) 49 41-51 [facility] HospitalArterial Blood Partial Pressure O2 2018-06-01 00:17:00* Test Item Value Reference Range Interpretation Comments Arterial Blood Partial Pressure O2 (test code = 2019-8) 77 80-[address] [facility] HospitalArterial Blood [id number] 00:17:00* Test Item Value Reference Range Interpretation Comments Arterial Blood HCO3 (test code = 1960-4) 27 23-28 [facility] HospitalArterial Blood Base Dwkezr7918-03-27 00:17:00* Test Item Value Reference Range Interpretation Comments Arterial Blood Base Excess (test code = 1925-7) 1.0 -2-3 [facility] HospitalArterial Blood Oxygen Saturation 2018-06-01 00:17:00* Test Item Value Reference Range Interpretation Comments Arterial Blood Oxygen Saturation (test code = 2708-6) 94.0 95-[address] [facility] HospitalFiO22019-04-06 00:17:00* Test Item Value Reference Range Interpretation Comments FiO2 (test code = FiO2) 85 PT. ON [facility] 16, 440 +12 85[facility] HospitalArterial Blood oN8776-06-01 00:17:00* Test Item Value Reference Range Interpretation Comments Arterial Blood pH (test code = 2744-1) 7.34 7.31-7.41 [facility] HospitalArterial Blood Partial Pressure CO2 2018-06-01 00:17:00* Test Item Value Reference Range Interpretation Comments Arterial Blood Partial Pressure CO2 (test code = 2018-8) 49 41-51 [facility] HospitalArterial Blood Partial Pressure O2 2018-06-01 00:17:00* Test Item Value Reference Range Interpretation Comments Arterial Blood Partial Pressure O2 (test code = 2018-) 77 80-[address] [facility] HospitalArterial Blood WNO77135-63-06 00:17:00* Test Item Value Reference Range Interpretation Comments Arterial Blood HCO3 (test code = 1960-4) 27 23-28 [facility] HospitalArterial Blood Base Uufbju4820-37-81 00:17:00* Test Item Value Reference Range Interpretation Comments Arterial Blood Base Excess (test code = 1925-7) 1.0 -2-3 [facility] HospitalArterial Blood Oxygen Saturation 2018-06-01 00:17:00* Test Item Value Reference Range Interpretation Comments Arterial Blood Oxygen Saturation (test code = 2708-6) 94.0 95-[address] [facility] HospitalFiO22019-04-06 00:17:00* Test Item Value Reference Range Interpretation Comments FiO2 (test code = FiO2) 85 PT. ON [facility] 16 440 +[address] [place], [place] [address]CT CHEST W 2018-05-31 15:20:00 [place] [address] Patient Name: INDRA GALVAN MR #: [id number] : 1980 Age/Sex: 37/M Req #: [id number] Adm Physician: KIET DUMAS MD Ordered by: DAVID HORTON Report #: [id number] Location: ICU Room/Bed: ICU [facility] Procedure: 0405-[address]/CT CHEST W Exam Date: 05/31/18 Exam Time: 1430 REPORT STATUS: Signed CT chest pulmonary embolism protocol CPT code: 76149 INDICATION: Intubated, ev aluate for pulmonary embolus; [...] 1537 COPY TO: DAVID HORTON Hepatitis Be Jjcjdozh6279-87-30 08:40:00* Test Item Value Reference Range Interpretation Comments Hepatitis Be Antibody (test code = 67079-6) Negative Negative Performed at: [facility] Lab[address] [id number] Water Resources Technical Officer: Esdras Lemon MD, Phone: [phone]. David's Georgetown HospitalHepatitis Be Ksqzgcvv6423-50-71 08:40:00* Test Item Value Reference Range Interpretation Comments Hepatitis Be Antibody (test code = 55038-0) Negative Negative Performed at: [facility] [id number] Water Resources Technical Officer: Esdras Lemon MD, Phone: [phone]. David's Georgetown HospitalHIV-1 RNA, Quantitative copies/mH1581-54-09 08:39:00* Test Item Value Reference Range Interpretation Comments HIV-1 RNA, Quantitative copies/mL (test code = 10290-1) <20 . HIV-1 RNA not detectedThe reportable range for this assay is 20 to 10,000,000cop ies HIV-1 RNA/mL.[facility] HospitalHIV-1 RNA, Quantitative copies/zG4805-60-73 08:39:00* Test Item Value Reference Range Interpretation Comments HIV-1 RNA, Quantitative copies/mL (test code = 14210-5) <20 . HIV-1 RNA not detectedThe reportable range for this assay is 20 to 10,000,000cop ies HIV-1 RNA/mL.[facility] HospitalDifferential Total Cells Npfumsv0036-43-74 07:07:00* Test Item Value Reference Range Interpretation Comments Differential Total Cells Counted (test code = Differen tial Total Cells Counted) [address] [facility] [facility] HospitalNeutrophils % (Manual)2018-05-31 07:07:00 * Test Item Value Reference Range Interpretation Comments Neutrophils % (Manual) (test code = 32295-7) 84 40-[address] [facility] HospitalLymphocytes % (Manual)2018-05-31 07:07:00 * Test Item Value Reference Range Interpretation Comments Lymphocytes % (Manual) (test code = 737-7) 3 19-[address] [facility] HospitalMonocytes % (Manual)2018-05-31 07:07:00* Test Item Value Reference Range Interpretation Comments Monocytes % (Manual) (test code = 744-3) 10 3.4-9.[address] [facility] HospitalEosinophils % (Manual)2018-05-31 07:07:00 * Test Item Value Reference Range Interpretation Comments Eosinophils % (Manual) (test code = 714-6) 3 0-7 [facility] HospitalPlatelet Qgenwkfe8758-06-24 07:07:00* Test Item Value Reference Range Interpretation Comments Platelet Estimate (test code = 66096-2) ADEQUATE [facility] HospitalPlatelet Morphology Gltyima8763-02-11 07:07:00* Test Item Value Reference Range Interpretation Comments Platelet Morphology Comment (test code = 66162-9) NORMAL [facility] HospitalHypochromasia2019-04-05 07:07:00* Test Item Value Reference Range Interpretation Comments Hypochromasia (test code = 728-6) SLIGHT [facility] HospitalAnisocytosis2019-04-05 07:07:00* Test Item Value Reference Range Interpretation Comments Anisocytosis (test code = 702-1) MODERATE [facility] HospitalMacrocytosis2019-04-05 07:07:00* Test Item Value Reference Range Interpretation Comments Macrocytosis (test code = 738-5) MODERATE [facility] HospitalRed Cell Morphology Rggxzew6724-61-61 07:07:00* Test Item Value Reference Range Interpretation Comments Red Cell Morphology Comment (test code = 6742-1) ABNORMAL [facility] HospitalDifferential Total Cells Counted 2018-05-31 07:07:00* Test Item Value Reference Range Interpretation Comments Differential Total Cells Counted (test code = Differen tial Total Cells Counted) 100 [facility] HospitalNeutrophils % (Manual)2018-05-31 07:07:00 * Test Item Value Reference Range Interpretation Comments Neutrophils % (Manual) (test code = 99324-4) 84 40-[address] [facility] HospitalLymphocytes % (Manual)2018-05-31 07:07:00 * Test Item Value Reference Range Interpretation Comments Lymphocytes % (Manual) (test code = 737-7) 3 19-[address] [facility] HospitalMonocytes % (Manual)2018-05-31 07:07:00* Test Item Value Reference Range Interpretation Comments Monocytes % (Manual) (test code = 744-3) 10 3.4-9.[address] [facility] HospitalEosinophils % (Manual)2018-05-31 07:07:00 * Test Item Value Reference Range Interpretation Comments Eosinophils % (Manual) (test code = 714-6) 3 0-7 [facility] HospitalPlatelet Rfslghwo8753-96-54 07:07:00* Test Item Value Reference Range Interpretation Comments Platelet Estimate (test code = 63000-1) ADEQUATE [facility] HospitalPlatelet Morphology Igdgkzu2471-77-96 07:07:00* Test Item Value Reference Range Interpretation Comments Platelet Morphology Comment (test code = 09917-5) NORMAL [facility] HospitalHypochromasia2019-04-05 07:07:00* Test Item Value Reference Range Interpretation Comments Hypochromasia (test code = 728-6) SLIGHT [facility] HospitalAnisocytosis2019-04-05 07:07:00* Test Item Value Reference Range Interpretation Comments Anisocytosis (test code = 702-1) MODERATE [facility] HospitalMacrocytosis2019-04-05 07:07:00* Test Item Value Reference Range Interpretation Comments Macrocytosis (test code = 738-5) MODERATE [facility] HospitalRed Cell Morphology Vrtssnc5537-49-15 07:07:00* Test Item Value Reference Range Interpretation Comments Red Cell Morphology Comment (test code = 6742-1) ABNORMAL [facility] HospitalTotal Xiivaddxz8561-72-95 06:43:00* Test Item Value Reference Range Interpretation Comments Total Bilirubin (test code = 1975-2) 17.5 0.2-1.[address] [facility] HospitalAspartate Amino Transf (AST/SGOT) 2018-05-31 06:43:00* Test Item Value Reference Range Interpretation Comments Aspartate Amino Transf (AST/SGOT) (test code = Aspartate Amino Transf (AST/SGOT)) 97 5-[address] [facility] HospitalAlanine Aminotransferase (ALT/SGPT) 2018-05-31 06:43:00* Test Item Value Reference Range Interpretation Comments Alanine Aminotransferase (ALT/SGPT) (test code = 1742-6) 28 0-55 [facility] HospitalTotal Yqpvlat7732-02-98 06:43:00* Test Item Value Reference Range Interpretation Comments Total Protein (test code = 2885-2) 6.1 6.5-8.[address] [facility] HospitalAlbumin2019-04-05 06:43:00* Test Item Value Reference Range Interpretation Comments Albumin (test code = 1751-7) 1.7 3.5-5.[address] [facility] HospitalGlobulin2019-04-05 06:43:00* Test Item Value Reference Range Interpretation Comments Globulin (test code = 44717-9) 4.4 2.3-3.[address] [facility] HospitalAlbumin/Globulin Owsqc0463-33-89 06:43:00 * Test Item Value Reference Range Interpretation Comments Albumin/Globulin Ratio (test code = 1759-0) 0.4 0.8-2.[address] [facility] HospitalAlkaline Qiwaeidwmoh3822-98-08 06:43:00* Test Item Value Reference Range Interpretation Comments Alkaline Phosphatase (test code = 6768-6) 149 40-150 [facility] HospitalCHEST SINGLE (PORTABLE)2018-05-31 05:31:00 [facility] [address] [place] [address] Patient Name: INDRA GALVAN MR #: [id number] : 1980 Age/Sex: 37/M Req #: [id number] Adm Physician: KIET DUMAS MD Ordered by: MANDEEP MARIE MD Report #: [id number] Location: ICU Room/Bed: ICU [facility] Procedure: 0405-000 3 DX/CHEST SINGLE (PORTABLE) [...] 05/31/18531 COPY TO: MANDEEP MARIE MD Urine Jjysatyjax3332-28-12 01:57:00* Test Item Value Reference Range Interpretation Comments Urine Osmolality (test code = 2695-5) 353 . 24 hr : 300 - 900 Random: 50 - 1400 After 12hr fluid restriction: >850Performed at: [facility] [address] [id number] Director: Alli Georges MD, Phone: [phone]. David's Georgetown HospitalUrine Osmolality 2018-05-31 01:57:00* Test Item Value Reference Range Interpretation Comments Urine Osmolality (test code = 2695-5) 353 . 24 hr : 300 - 900 Random: 50 - 1400 After 12hr fluid restriction: >850Performed at: [facility] [address] [id number] Director: Alli Georges MD, Phone: [phone]. David's Georgetown HospitalIR XROFUJF1171-12-83 17:22:00 [facility] [address] [place], [place] [address] Patient Name: INDRA GALVAN MR #: [id number] : 1980 Age/Sex: 37/M Req #: [id number] Adm Physician: KIET DUMAS MD Ordered by: MANDEEP MARIE MD Report #: [id number] Location: ICU Room/Bed: ICU [facility] Procedure: 0404-004 8 DX/IR CONSULT Exam Date: [...] a 0.018 " skinny wire. A 5 Syrian micropuncture sheat h was then placed and through the micropuncture sheath a 0.035 " Amplatz super stiff wire placed centrally. Dilatation with a 7 Syrian Rajesh dilator was a ccomplished. A 7 Syrian Arrow triple-lumen 20 cm long central line [...] TO: MANDEEP MARIE MD NON-TUNNELLED CVC CATH PURAMEK2104-66-28 17:22:00 [place] [address] Patient Name: INDRA GALVAN MR #: [id number] : 1980 Age/Sex: 37/M Req #: [id number] Adm Physician: KIET DUMAS MD Ordered by: MANDEEP MARIE MD Report #: [id number] Location: ICU Room/Bed: ICU [facility] Procedure: 0404-000 3 IR/NON-TUNNELLED CVC CATH [...] 0.018 " skinny wire . A 5 Syrian micropuncture sheath was then placed and through the micropunctur e sheath a 0.035 " Amplatz superstiff wire placed centrally. Dilatation with a 7 Syrian Rajesh dilator was accomplished. A 7 Syrian Arrow triple-lumen 20 cm long central line was then placed over the Amplatz wire. Each lumen was flushed with saline. Catheter secured to the skin with 3-0 Ethilon. Post procedure chest x-ray was ordered. Impression: Successful placement of a triple-lumen central line. Signed by: Dr. 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 A 5 Syrian micropuncture sheath was then placed and through the micropunctur e sheath a 0.035 " Amplatz superstiff wire placed centrally. Dilatation with a 7 Syrian Rajesh dilator was accomplished. A 7 Syrian Arrow triple-lumen 20 cm long central line was then placed over the Amplatz wire. Each lumen was flushed with saline. Catheter secured to the skin with 3-0 Ethilon. Post procedure chest x-ray was ordered. Impression: Successful placement of a triple-lumen central line. Signed by: Dr. 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 Y TO: MANDEEP MARIE MD Blood Edgnjun2084-51-88 17:10:00* Test Item Value Reference Range Interpretation Comments Blood Culture (test code = 50470561) NO GROWTH AFTER 72 HOURS [facility] XRAY LINE PQREPVFTL8788-16-64 15:38:00 [facility] [address] [place] [address] Patient Name: INDRA GALVAN MR #: [id number] : 1980 Age/Sex: 37/M Req #: [id number] Adm Physician: KIET DUMAS MD Ordered by: KANDI ANAND DO Report #: [id number] Location: ICU Room/Bed: ICU [facility] Procedure: [id number] DX/CHEST XRAY LINE PLACEMENT Exam Date: Exam [...] KANDI ANAND DO CHEST SINGLE (PORTABLE)2018-05-30 14:49:00 [place] [address] Patient Name: INDRA GALVAN MR #: [id number] : [birth year] Age/Sex: 37/M Req #: [id number] Adm Physician: KIET DUMAS MD Ordered by: MARITZA SANTANA MD Report #: [id number] Location: ICU Room/Bed: ICU [facility] Procedure: [id number] DX/CHEST SINGLE (PORTABLE) Exam Date: 05/30/18 Exam [...] COPY TO: MARITZA SANTANA MD Urine Legionella Crnzktj1388-02-50 12:08:00* Test Item Value Reference Range Interpretation Comments Urine Legionella Antigen (test code = 02342-2) Negative Negativ e Presumptive negative for L. pneumophila serogroup 1 antigenin urine, suggesting no recent or current infection.Legionnaires' disease cannot be ruled out since o therserogroups and species may also cause disease.Performed at: [facility] [address] [id number] Director: Esdras Lemon MD, Phone: [phone]. David's Georgetown HospitalUrine Legionella Pazhulz6777-11-11 12:08:00* Test Item Value Reference Range Interpretation Comments Urine Legionella Antigen (test code = 76083-5) Negative Negativ e Presumptive negative for L. pneumophila serogroup 1 antigenin urine, suggesting no recent or current infection.Legionnaires' disease cannot be ruled out since o therserogroups and species may also cause disease.Performed at: [facility] [address] [place] [id number] Director: Esdras Lemon MD, Phone: [phone]. David's Georgetown HospitalHepatitis C Zooxjykz8389-93-21 11:20:00* Test Item Value Reference Range Interpretation Comments Hepatitis C Antibody (test code = 53406-4) 0.1 0.0-0.9 Negative: < 0.8 Indeterminate: 0.8 - 0.9 Positive: > 0.9 The CDC recommends that a positive HCV antibody result be followed up with a HCV Nucleic Acid Amplification test (376963).Performed at: [facility] Adomos [id number] [place] [place] [address] [id number] Director: Alli Georges MD, Phone: [phone]. David's Georgetown HospitalHepatitis C Dpfqcymh1771-70-79 11:20:00* Test Item Value Reference Range Interpretation Comments Hepatitis C Antibody (test code = 93342-1) 0.1 0.0-0.9 Negative: < 0.8 Indeterminate: 0.8 - 0.9 Positive: > 0.9 The CDC recommends that a positive HCV antibody result be followed up with a HCV Nucleic Acid Amplification test (665460).Performed at: [facility] [email or web address] [id number] [place] [address] [id number] Director: Alli Georges MD, Phone: [phone]. David's Georgetown HospitalUrine [id number] 11:03:00* Test Item Value Reference Range Interpretation Comments Urine WBC (test code = 5821-4) 11-20 0-[address] [facility] HospitalU[facility] [id number] 11:03:00* Test Item Value Reference Range Interpretation Comments Urine RBC (test code = 66433-3) NONE 0-5 [facility] Lvrqxrnd9288-06-59 11:03:00* Test Item Value Reference Range Interpretation Comments Urine Bacteria (test code = 28007-0) FEW NONE [facility] HospitalUrine Epithelial Ukzso7394-80-90 11:03:00 * Test Item Value Reference Range Interpretation Comments Urine Epithelial Cells (test code = 91142-0) RARE NONE [facility] HospitalU[facility] Transitional Epithelial Cells 2018-05-30 11:03:00* Test Item Value Reference Range Interpretation Comments Urine Transitional Epithelial Cells (test code = 8249-5) FEW NONE [facility] Transitional Epithelial Cells 2018-05-30 11:03:00* Test Item Value Reference Range Interpretation Comments Urine Transitional Epithelial Cells (test code = 8249-5) FEW NONE [facility] HospitalU[facility] Kspde4236-19-52 10:31:00* Test Item Value Reference Range Interpretation Comments Urine Color (test code = 5778-6) RED YELLOW H [facility] HospitalU[facility] Mwfyfag2413-77-44 10:31:00* Test Item Value Reference Range Interpretation Comments Urine Clarity (test code = 98217-6) SL CLOUDY CLEAR H [facility] HospitalUrine Specific Vpuvhpd6672-34-29 10:31:00 * Test Item Value Reference Range Interpretation Comments Urine Specific [place] (test code = 5811-5) 1.020 1.010-1.[address] [facility] [id number] 10:31:00* Test Item Value Reference Range Interpretation Comments Urine pH (test code = 19823-8) 6 5-7 [facility] Leukocyte Qdbhkcng0262-61-59 10:31:00* Test Item Value Reference Range Interpretation Comments Urine Leukocyte Esterase (test code = 5799-2) NEGATIVE NEGATIVE [facility] HospitalU[facility] Sczpzrj7026-79-18 10:31:00* Test Item Value Reference Range Interpretation Comments Urine Nitrite (test code = 16192-5) POSITIVE [facility]IVE [facility] Thluiri3005-70-70 10:31:00* Test Item Value Reference Range Interpretation Comments Urine Protein (test code = 5804-0) TRACE NEGATIVE H [facility] HospitalUrine Glucose (UA)2018-05-30 10:31:00* Test Item Value Reference Range Interpretation Comments Urine Glucose (UA) (test code = 2349-9) NEGATIVE NEGATIVE [facility] Tznvejs8977-18-39 10:31:00* Test Item Value Reference Range Interpretation Comments Urine Ketones (test code = 79716-0) NEGATIVE NEGATIVE [facility] Sernfvtlsgsi7766-23-21 10:31:00* Test Item Value Reference Range Interpretation Comments Urine Urobilinogen (test code = 85085-8) 1 0.2-1 [facility] Rzfkluiaa7419-79-80 10:31:00* Test Item Value Reference Range Interpretation Comments Urine Bilirubin (test code = 1978-6) 3+ NEGATIVE H Confirmatory test currently unavailable. False positive results may occur.[facility] HospitalU[facility] Ybkts0185-00-19 10:31:00* Test Item Value Reference Range Interpretation Comments Urine Blood (test code = 10447-6) NEGATIVE NEGATIVE [facility] HospitalFolate2019-04-03 08:07:00* Test Item Value Reference Range Interpretation Comments Folate (test code = 2284-8) 30.1 7.0-15.[address] [facility] HospitalFolate2019-04-03 08:07:00* Test Item Value Reference Range Interpretation Comments Folate (test code = 2284-8) 30.1 7.0-15.[address] [facility] HospitalCHEST SINGLE (PORTABLE)2018-05-29 07:58:00 [facility] [address] [place] [address] Patient Name: INDRA GALVAN MR #: [id number] : 1980 Age/Sex: 37/M Req #: [id number] Adm Physician: KIET DUMAS MD Ordered by: KIRT SCHULTZ MD Report #: [id number] Location: [place] [address] Room/Bed: [facility] Procedure: [id number] DX /CHEST SINGLE (PORTABLE) Exam Date: 05/29/18 [...] Comments Vitamin B12 Level (test code = 40585-2) 1700 213-[address] [facility] HospitalVitamin B12 Kuwlw5263-28-38 07:19:00* Test Item Value Reference Range Interpretation Comments Vitamin B12 Level (test code = 11997-4) 1700 213-[address] [facility] HospitalIron Byyax9612-79-84 07:07:00* Test Item Value Reference Range Interpretation Comments Iron Level (test code = 2498-4) 61 65-[address] [facility] HospitalTotal Iron Binding Vikeuqeq2169-65-41 07:07:00* Test Item Value Reference Range Interpretation Comments Total Iron Binding Capacity (test code = 2500-7) 116 261-[address] [facility] HospitalPercent Iron Liofanwmpa1335-40-30 07:07:00* Test Item Value Reference Range Interpretation Comments Percent Iron Saturation (test code = 2502-3) 53 15-[address] [facility] HospitalTransferrin2019-04-03 07:07:00* Test Item Value Reference Range Interpretation Comments Transferrin (test code = 3034-6) 83 174-[address] [facility] HospitalIro Jwpoh0703-85-67 07:07:00* Test Item Value Reference Range Interpretation Comments Iron Level (test code = 2498-4) 61 65-[address] [facility] HospitalTotal Iron Binding Kiixmvbc6610-07-95 07:07:00* Test Item Value Reference Range Interpretation Comments Total Iron Binding Capacity (test code = 2500-7) 116 261-[address] [facility] HospitalPercent Iron Atvzbzcrmp0847-61-80 07:07:00* Test Item Value Reference Range Interpretation Comments Percent Iron Saturation (test code = 2502-3) 53 15-[address] [facility] HospitalTransferrin2019-04-03 07:07:00* Test Item Value Reference Range Interpretation Comments Transferrin (test code = 3034-6) 83 174-[address] [facility] HospitalMyelocytes %2018-05-29 07:06:00* Test Item Value Reference Range Interpretation Comments Myelocytes % (test code = 749-2) 1 0-[address] [facility] HospitalMyelocytes %2018-05-29 07:06:00* Test Item Value Reference Range Interpretation Comments Myelocytes % (test code = 749-2) 1 0-[address] [facility] HospitalPercent Reticulocyte Actpn3491-10-49 06:26:00* Test Item Value Reference Range Interpretation Comments Percent Reticulocyte Count (test code = 92147-6) 6.4 0.8-[address] [facility] HospitalPermemorial hospital Reticulocyte Kpupa5141-14-94 06:26:00* Test Item Value Reference Range Interpretation Comments Percent Reticulocyte Count (test code = 32424-7) 6.4 0.8-[address] [facility] HospitalHecaldwell medical centertis Be Vuadumx0472-39-61 05:14:00* Test Item Value Reference Range Interpretation Comments Hepatitis Be Antigen (test code = 11261-4) Negative Negative [facility] B Core Total Ayhjrfty6504-36-47 05:14:00* Test Item Value Reference Range Interpretation Comments Hepatitis B Core Total Antibody (test code = 34796-5) Negative Negative Performed at: [address] [id number] Director: Alli Georges MD, Phone: [phone] [facility] B Surface Jgfmzog0767-61-71 05:14:00* Test Item Value Reference Range Interpretation Comments Hepatitis B Surface Antigen (test code = 5196-1) Negative Negat mumtaz [facility] HospitalHem[facility] Be Fqtyntg0923-93-65 05:14:00* Test Item Value Reference Range Interpretation Comments Hepatitis Be Antigen (test code = 46430-8) Negative Negative [facility] B Core Total Lqlepwrq0114-57-85 05:14:00* Test Item Value Reference Range Interpretation Comments Hepatitis B Core Total Antibody (test code = 64760-0) Negative Negative Performed at: [address] [id number] Director: Alli Georges MD, Phone: [phone] Methodist [facility] B Surface Wqhkplf7632-13-55 05:14:00* Test Item Value Reference Range Interpretation Comments Hepatitis B Surface Antigen (test code = 5196-1) Negative Negat mumtazThe Hospital at Westlake Medical CenterProthrombin Etpo8049-66-08 00:09:00* Test Item Value Reference Range Interpretation Comments Prothrombin Time (test code = 5902-2) 15.5 11.9-14.[address] [facility] HospitalProthromb Time International Ratio 2018-05-29 00:09:00* Test Item Value Reference Range Interpretation Comments Prothromb Time International Ratio (test code = 6301-6) 1.17 Oral Anticoagulant Therapy INR Values:1. Low Intensity Therapy 1.5 - 2.02 . Moderate Intensity Therapy 2.0 - 3.03. High Intensity Therapy(1) 2.5 - 3. 54. High Intensity Therapy(2) 3.0 - 4.05. Panic Value INR > 5.0 [facility] HospitalHIV (1&2) Qjiwuudu0275-28-76 17:13:00* Test Item Value Reference Range Interpretation Comments HIV (1&2) Antibody (test code = 78436-9) NON-REACTIVE NONREACTIVE [facility] HospitalHI P24 Rrakpdb8123-21-62 17:13:00* Test Item Value Reference Range Interpretation Comments HIV P24 Antigen (test code = HIV P24 Antigen) NON-REACTIVE NONREACT MUMTAZ [facility] HospitalHIV (1&2) Dtvycluw0621-09-01 17:13:00* Test Item Value Reference Range Interpretation Comments HIV (1&2) Antibody (test code = 49100-3) NON-REACTIVE NONREACTIVE [facility] HospitalHI P24 Xcfuqgh4347-06-84 17:13:00* Test Item Value Reference Range Interpretation Comments HIV P24 Antigen (test code = HIV P24 Antigen) NON-REACTIVE NONREACT MUMTAZ [facility] HospitalCT CHEST [id number] 12:56:00 [facility] [address] [place] [address] Patient Name: INDRA GALVAN MR #: [id number] : 1980 Age/Sex: 37/M Req #: [id number] Adm Physician: KIET DUMAS MD Ordered by: MANDEEP MARIE MD Report #: [id number] Location: [facility] Room/Bed: [facility] Procedure: [id number]/CT CHEST WO Exam [...] 1308 COPY TO: MANDEEP MARIE MD Amylase Nxnim7769-61-87 09:09:00* Test Item Value Reference Range Interpretation Comments Amylase Level (test code = 1798-8) 24 25-[address] [facility] HospitalLipase2019-04-02 09:09:00* Test Item Value Reference Range Interpretation Comments Lipase (test code = 3040-3) [address] [facility] HospitalAmylase Fdvqn3985-01-51 09:09:00* Test Item Value Reference Range Interpretation Comments Amylase Level (test code = 1798-8) 24 25-[address] [facility] HospitalLipase2019-04-02 09:09:00* Test Item Value Reference Range Interpretation Comments Lipase (test code = 3040-3) 28 [facility] HospitalCHEST 2 KLXAG5511-92-45 06:24:00 [facility] [address] [place] [address] Patient Name: INDRA GALVAN MR #: [id number] : 1980 Age/Sex: 37/M Req #: [id number] Adm Physician: KIET DUMAS MD Ordered by: ANAYA BUSTAMANTE MD Report #: [id number] Location: MED/SURG3 Room/Bed: [facility] Procedure: [id number] 010 DX/CHEST 2 VIEWS Exam [...] COPY TO: ANAYA BUSTAMANTE MD CT ABDOMEN/PELVIS [id number] 20:09:00 [place] [address] Patient Name: INDRA GALVAN MR #: [id number] : 1980 Age/Sex: 37/M Req #: [id number] Adm Physician: KIET DUMAS MD Ordered by: ANAYA BUSTAMANTE MD Report #: [id number] Location: [facility] Room/Bed: [place] [address] Procedure: 0401-[address]/CT ABDOMEN/PELVIS W Exam [...] on 05/27/182039 COPY TO: ANAYA BUSTAMANTE MD IJZZJWTFSZB2398-68-83 19:50:00 [place] [address] Patient Name: INDRA GALVAN MR #: [id number] : 1980 Age/Sex: 37/M Req #: [id number] Adm Physician: KIET DUMAS MD Ordered by: ANAYA BUSTAMANTE MD Report #: [id number] Location: [facility] Room/Bed: [place] [address] Procedure: 0401-0 013 US/US GALLBLADDER Exam Date: [...] TO: ANAYA BUSTAMANTE MD B- Type Natriuretic Ivbfcmp4750-76-89 17:56:00* Test Item Value Reference Range Interpretation Comments B-Type Natriuretic Peptide (test code = 79395-4) 221.6 0-[address] [facility] HospitalInfluenza Virus Types A,B Antigen 2018-05-27 17:30:00* Test Item Value Reference Range Interpretation Comments Influenza Virus Types A,B Antigen (test code = 62123-0) NEGATIVE NEGATIVE [facility] HospitalInfluenza Virus Types A,B Antigen 2018-05-27 17:30:00* Test Item Value Reference Range Interpretation Comments Influenza Virus Types A,B Antigen (test code = 70562-9) NEGATIVE NEGATIVE [facility] HospitalTroponin [id number] 17:28:00* Test Item Value Reference Range Interpretation Comments Troponin I (test code = SNS7525) 0.010 0-0.300 [facility] HospitalLactic Acid Xaezj9042-77-30 17:20:00* Test Item Value Reference Range Interpretation Comments Lactic Acid Level (test code = Lactic Acid Level) 26.5 4.5- 19.8 Results repeated and called to Alina at 1720 on 05/27/18 by Kalin Almanza. Read matt ck and verified.[facility] HospitalCHEST 2 [id number] 15:47:00 [place] [address] Patient Name: INDRA GALVAN MR #: [id number] : 1980 Age/Sex: 37/M Req #: [id number] Adm Physician: Ordered by: ANAYA BUSTAMANTE MD Report #: [id number] Location: ER Room/Bed: Procedure: [id number] DX/CHEST 2 VIEWS Exam Date: Exam Time: [...] 3:50 PM Dictated By: SONIA Jeffery MD [id number] Transcribed By: CATERINA on 05/27/18 6162 COPY TO: ANAYA BUSTAMANTE MD
--- NOTE | 2019-10-18 10:52 | Emergency Department Note ---
History of Present Illnes History of Present Illness Chief Complaint: General Medicine Complaints History of Present Illness This is a 38 year old male FEELS WEAK, DIZZY WHEN HE STANDS, BLACK STOOLS FOR 5 DAYS. RECENT ANEMIA. Historian: Patient Arrival Mode: Car Resp Ther Required: No Onset (how long ago): day(s) (5) Radiation: Reports non-radiation Severity: moderate Onset quality: gradual Timing of current episode: intermittent Progression: unchanged Chronicity: new Context: Denies recent illness Relieving factors: none Exacerbating factors: none Associated symptoms: Reports denies other symptoms, Reports weakness Treatments prior to arrival: none Past Medical/Family History Physician Review I have reviewed the patient's past medical and family history. Any updates have been documented here. Past Medical History Recent Fever: No Clinical Suspicion of Infectio: No New/Unexplained Change in Ment: No Past Medical History: Hypertension, Liver Disease, ESRD, Anemia Other Medical History: Pacreatitis PNEUMONIA Past Surgical History: None Other Surgery: none Social History Smoking Cessation: Former smoker Alcohol Use: Daily (HAS DECREASED) Any Illegal Drug Use: No TB Exposure/Symptoms: No Physically hurt or threatened: No Family History Family history of heart diseas: No Other Last Tetanus: UTD Any Pre-Existing Lines (PICC,: Yes Review of Systems Review of Systems Constitutional: Reports as per HPI, Reports weakness EENTM: Reports no symptoms Cardiovascular: Reports no symptoms Respiratory: Reports no symptoms Gastrointestinal: Reports no symptoms Genitourinary: Reports as per HPI Musculoskeletal: Reports no symptoms Integumentary: Reports no symptoms Neurological: Reports no symptoms Psychological: Reports no symptoms Endocrine: Reports no symptoms Hematological/Lymphatic: Reports no symptoms Physical Exam Related Data Allergies: Coded Allergies: No Known Allergies (Unverified , 10/16/18) Triage Vital Signs Vital Signs Date Time Temp Pulse Resp B/P (MAP) Pulse Ox O2 Delivery O2 Flow Rate FiO2 10/18/19 08:50 98.9 111 18 107/52 100 10/18/19 10:02 Room Air Vital signs reviewed: Yes Physical Exam CONSTITUTIONAL Constitutional: Present well-developed, Present ill appearing (APPEARS CHRONICALLY ILL) HENT HENT: Present normocephalic, Present atraumatic, Present oropharynx clear/moist, Present nose normal HENT L/R: Present left ext ear normal, Present right ext ear normal EYES Eyes: Reports PERRL, Reports other (SCLERAL ICTERUS) NECK Neck: Present ROM normal PULMONARY Pulmonary: Present effort normal, Present breath sounds normal CARDIOVASCULAR Cardiovascular: Present regular rhythm, Present heart sounds normal, Present ca pillary refill normal, Present normal rate, Present murmur (2/6 SYS ) GASTROINTESTINAL Abdominal: Present soft, Present nontender, Present bowel sounds normal GENITOURINARY Genitourinary: Present exam deferred SKIN Skin: Present warm, Present dry, Present pale, Present jaundiced MUSCULOSKELETAL Musculoskeletal: Present ROM normal NEUROLOGICAL Neurological: Present alert, Present oriented x 3, Present no gross motor or sensory deficits; Absent cranial nerve deficit, Absent sensory deficit, Absent weakness PSYCHOLOGICAL Psychological: Present mood/affect normal, Present judgement normal Exam - additional comments RIGHT TUNNELED IJ HD CATH Results Laboratory Result Diagram: 10/18/1958 10/18/19 0858 Laboratory Laboratory Tests Test 10/18/19 09:30 10/18/19 08:58 Magnesium Level 1.6 MG/DL (1.3-2.1) White Blood Count 12.82 x10e3/uL (4.8-10.8) Red Blood Count 1.12 x10e6/uL (4.3-5.7) Hemoglobin 4.2 g/dL (14.0-18.0) Hematocrit 12.7 % (38.2-49.6) Mean Corpuscular Volume 113.4 fL (81-99) Mean Corpuscular Hemoglobin 37.5 pg (28-32) Mean Corpuscular Hemoglobin Concent 33.1 g/dL (31-35) Red Cell Distribution Width 17.5 % (11.7-14.4) Platelet Count 147 x10e3/uL (140-360) Neutrophils (%) (Auto) 81.5 % (38.7-80.0) Lymphocytes (%) (Auto) 7.3 % (18.0-39.1) Monocytes (%) (Auto) 8.9 % (4.4-11.3) Eosinophils (%) (Auto) 1.2 % (0.0-6.0) Basophils (%) (Auto) 0.2 % (0.0-1.0) Neutrophils # (Auto) 10.5 (2.1-6.9) Lymphocytes # (Auto) 0.9 (1.0-3.2) Monocytes # (Auto) 1.1 (0.2-0.8) Eosinophils # (Auto) 0.2 (0.0-0.4) Basophils # (Auto) 0.0 (0.0-0.1) Absolute Immature Granulocyte (auto 0.12 x10e3/uL (0-0.1) Prothrombin Time 19.4 seconds (11.9-14.5) Prothromb Time International Ratio 1.54 Activated Partial Thromboplast Time 46.5 seconds (23.8-35.5) Sodium Level 136 mmol/L (136-145) Potassium Level 2.7 mmol/L (3.5-5.1) Chloride Level 94 mmol/L (98-107) Carbon Dioxide Level 28 mmol/L (22-29) Anion Gap 16.7 mmol/L (8-16) Blood Urea Nitrogen 9 mg/dL (7-26) Creatinine 1.92 mg/dL (0.72-1.25) Estimat Glomerular Filtration Rate 39 ML/MIN (60-) BUN/Creatinine Ratio 5 (6-25) Glucose Level 145 mg/dL (74-118) Calcium Level 8.2 mg/dL (8.4-10.2) Total Bilirubin 23.3 mg/dL (0.2-1.2) Aspartate Amino Transf (AST/SGOT) 97 IU/L (5-34) Alanine Aminotransferase (ALT/SGPT) 19 IU/L (0-55) Alkaline Phosphatase 158 IU/L (40-150) Creatine Kinase 31 IU/L (30-200) Creatine Kinase MB 0.40 ng/mL (0-5.0) Troponin I 0.009 ng/mL (0-0.300) B-Type Natriuretic Peptide 1195.9 pg/mL (0-100) Total Protein 6.0 g/dL (6.5-8.1) Albumin 2.4 g/dL (3.5-5.0) Globulin 3.6 g/dL (2.3-3.5) Albumin/Globulin Ratio 0.7 (0.8-2.0) Lab results reviewed: Yes Imaging Imaging results reviewed: Yes Procedures 12 Lead ECG Interpretation ECG Interpretation : ECG: ECG 1 Resp Ther: Interpreted by ED physician Date: Oct 18, 2019 Time: 09:04 Rhythm: sinus tachycardia Rate: tachycardia (106) QRS axis: normal ST segments normal: Yes T wave inversion: I, aVL, V4, V5, V6 Other findings: LVH, early repolarization Q waves: I, II, aVL Clinical Impression: abnormal ECG Critical Care Time Total Critical Care Time (min): 45 Critical care time exclusive o: separately billable procedures Critcal care necessary due to: circulatory failure, renal failure Critcal care time spent by me: discussion w consultants, discussion w primary provider, evaluation patient response to tx, order/perform tx or interventions, order/review laboratory studies, re-evaluation of patient condition, review of old charts Assessment & Plan Medical Decision Making MDM PT WITH ESRD ON HD M/W/F WITH LAST HD YESTERDAY, AND ALCOHOLIC CIRRHOSIS, PRESENTS WITH GENERALIZED WEAKNESS & ORTHOSTASIS, BLACK STOOLS, CXR - CHECK CBC, CHEM's, ECG, CARDIACS, T&S TO EVAL FOR GI BLEED/ANEMIA, VOLUME OVERLOAD, ELECTROLYTE ABNL, STEMI/NSTEMI. START PROTONIX, OCTREOTIDE. WILL LIKELY NEED BLOOD, POSSIBLY PLASMA. Reassessment Reassessment SPOKE WITH DR BOX FOR ADMISSION. I ALSO SPOKE WITH DR Laine ROBERTSON AND DR Ines DIEGO SINCE PT WILL NEED MULTIPLE UNITS OF PRBC's AND PLASMA AND WILL NEED HD TODAY. K IS LOW BUT WILL NOT REPLACE BECAUSE WITH GI BLEED AND RECEIVING BLOOD THIS WILL ELEVATE AND ALSO NEPHROLOGY WILL DO HD AND CAN ADJUST Assessment & Plan Final Impression: (1) GI bleed (2) ESRD (end stage renal disease) (3) Cirrhosis Depart Disposition: ADMITTED Last Vital Signs Date Time Temp Pulse Resp B/P (MAP) Pulse Ox O2 Delivery O2 Flow Rate FiO2 10/18/19 10:02 96 27 103/56 96 Room Air 10/18/19 08:50 98.9 Home Meds Active Scripts Pantoprazole Sodium* (PROTONIX) 40 Mg Tablet., 40 MG PO ACB, #30 TAB Prov:DEBO MOCK FIRST AID NURSE 09/27/19 Reported Medications Midodrine Hcl (MIDODRINE HCL) 10 Mg Tablet 09/26/19 Pantoprazole Sodium* (PROTONIX) 40 Mg Tablet. 09/26/19 Hydrochlorothiazide (HYDROCHLOROTHIAZIDE) 25 Mg Tablet, 25 MG DAILY, #30 TAB 05/27/18 Folic Acid (FOLIC ACID) 1 Mg Tablet, 1 MG PO DAILY, #30 TAB 05/27/18 Trazodone Hcl (TRAZODONE HCL) 50 Mg Tablet, 50 MG PO HS, #30 TAB 05/27/18 Discontinued Reported Medications Nifedipine (NIFEDIPINE ER) 30 Mg Tab.er.24, 30 MG PO BID 05/27/18 Medications in the ED Pantoprazole Sodium 80 mg ONCE ONCE IV Last administered on 10/18/19at 09:52; Admin Dose 80 MG; Start 10/18/19 at 08:59; Stop 10/18/19 at 09:00 Octreotide Acetate 0.05 mg ONCE STAT IV Last administered on 10/18/19at 09:51; Admin Dose 0.05 MG; Start 10/18/19 at 09:10; Stop 10/18/19 at 09:11 Octreotide Acetate 400 mcg/ Sodium Chloride 200 ml @ 25 mls/hr Q8H IV ; Start 10/18/19 at 09:15; Stop 10/18/19 at 09:25; Status DC Octreotide Acetate 500 mcg/ Sodium Chloride 250 ml @ 25 mls/hr Q10H IV Last administered on 10/18/19at 09:51; Admin Dose 25 MLS/HR; Start 10/18/19 at 09:30; Stop 11/17/19 at 09:29 Potassium Chloride 20 meq ONCE ONCE PO ; Start 10/18/19 at 09:45; Stop 10/18/19 at 10:31; Status DC MARITZA SANTANA MD Oct 18, 2019 10:52
--- NOTE | 2019-10-18 11:29 | NUR ---
Report called to Robina MURPHY in ICU.
[2019-10-18] MEDS ORDERED: SODIUM CHLORIDE 0.9% 1000ML 2,000 ML ONE (14:27)
[2019-10-18] MEDS ORDERED: MULTIVITAMINS- 12 INJECTION 10 ML, FOLIC ACID MDV 5 MG, THIAMINE HCL INJ 100 MG in SODI... IV ONE (14:30)
--- NOTE | 2019-10-18 14:49 | Diagnostic Imaging Report ---
EXAM: Right upper quadrant abdominal ultrasound INDICATION: Cirrhosis, ERCP. COMPARISON: Abdominal ultrasound 09-26-2019. TECHNIQUE: Transverse and longitudinal images of the right upper quadrant abdomen were obtained FINDINGS: Liver: Size: 20.6 cm in the right midclavicular line Appearance: Diffusely echogenic with nodular contour. Mass: No focal masses Gallbladder: Cholelithiasis. No distention, pericholecystic fluid, wall thickening, or reported sonographic Cooper's sign. Gallbladder wall measures 0.28 cm. Bile Ducts: Intrahepatic Ducts: No dilatation Extrahepatic Ducts: Common bile duct measures 0.4 cm, no dilatation Pancreas: Partially obscured. Partially visualized portions appear unremarkable. Kidney: The right kidney measures 11.1 cm without evidence of hydronephrosis or stone. Vessels: Aorta: Visualized portions are normal. Partially obscured. Inferior Vena Cava: Visualized portions are normal Main Portal Vein: 1.3 cm, dilated with hepatopetal flow. Free Fluid: Small to moderate volume ascites. IMPRESSION: Cholelithiasis without evidence of cholecystitis. Cirrhotic liver with hepatomegaly and findings of portal hypertension with small to moderate volume ascites. Signed by: Dr. Yvette Harris MD on 10/18/2019 2:46 PM
--- NOTE | 2019-10-18 15:01 | Diagnostic Imaging Report ---
EXAMINATION: CHEST SINGLE (PORTABLE) INDICATION: WEAKNESS COMPARISON: Chest radiograph 09-26-2019. FINDINGS: TUBES and LINES: Right IJ tunneled hemodialysis catheter with tip at the cavoatrial junction. LUNGS: Low lung volumes. Central vascular congestion. No evidence of pulmonary edema. Linear and patchy opacity at the left lung base. PLEURA: No pleural effusion or pneumothorax. HEART AND MEDIASTINUM: The cardiomediastinal silhouette is unremarkable. BONES AND SOFT TISSUES: No acute osseous lesion. Soft tissues are unremarkable. UPPER ABDOMEN: No free air under the diaphragm. IMPRESSION: Low lung volumes with central vascular congestion. No evidence of pulmonary edema. Left basilar opacity, likely atelectasis. Signed by: Dr. Yvette Harris MD on 10/18/2019 2:58 PM
[2019-10-18] MEDS ORDERED: SODIUM CHLORIDE 0.9% 1000ML 2,000 ML IV PRN (15:15)
[2019-10-18] MEDS ORDERED: HEPARIN SOD (PORCINE) 1000 UNIT/ML SDV IV PRN (15:15)
[2019-10-18] MEDS ORDERED: SODIUM CHLORIDE 0.9% 250ML 500 ML IV PRN (15:15)
[2019-10-18 15:57] LABS: FERRITIN 1212.14 ng/mL (21.81-274.66)
[2019-10-18 19:49] LABS: BASOPHILS # (AUTO) 0.1 (0.0-0.1); BASOPHILS % 0.6 % (0.0-1.0); EOSINOPHILS # (AUTO) 0.3 (0.0-0.4); EOSINOPHILS % 2.4 % (0.0-6.0); HEMATOCRIT 19.4 % (38.2-49.6); LYMPHOCYTES # (AUTO) 0.8 (1.0-3.2); MEAN CORPUSCULAR HEMOGLOBIN 34.6 pg (28-32); MEAN CORPUSCULAR HGB CONC 33.5 g/dL (31-35); MEAN CORPUSCULAR VOLUME 103.2 fL (81-99); MONOCYTES % 8.6 % (4.4-11.3); NEUTROPHILS # (AUTO) 8.9 (2.1-6.9); NEUTROPHILS % 80.7 % (38.7-80.0); PLATELET COUNT 91 x10e3/uL (140-360); RED BLOOD COUNT 1.88 x10e6/uL (4.3-5.7); RED CELL DISTRIBUTION WIDTH 19.9 % (11.7-14.4)
[2019-10-18 20:11] LABS: HEMOGLOBIN 6.5 g/dL (14.0-18.0)
[2019-10-18 20:15] LABS: ANION GAP 15.3 mmol/L (8-16); CALCIUM 7.7 mg/dL (8.4-10.2); CREATININE, SERUM 2.04 mg/dL (0.72-1.25); POTASSIUM 3.3 mmol/L (3.5-5.1)
[2019-10-18] MEDS ORDERED: PHYTONADIONE 10 MG/ML AMP IV ONE (20:15)
[2019-10-18 20:23] LABS: CREATINE KINASE MB 0.4 ng/mL (0-5.0)
[2019-10-18] MEDS ORDERED: OCTREOTIDE ACETATE 2 ML ONE (20:41)
[2019-10-18] MEDS ORDERED: SODIUM CHLORIDE 0.9% 100 ML ONE (20:51)
[2019-10-18] MEDS: MULTIVITAMINS- 12 INJECTION 10 ML, FOLIC ACID MDV 5 MG, THIAMINE HCL INJ 100 MG in SODI... IV SCH (21:23)
[2019-10-18] MEDS: PANTOPRAZOLE 40 MG 10ML VIAL IV SCH (21:24)
[2019-10-18 23:04] LABS: ALBUMIN 2.4 g/dL (3.5-5.0)
[2019-10-18 23:30] LABS: BILIRUBIN,DIRECT 13.2 mg/dL (0.0-0.5)
--- NOTE | 2019-10-18 23:34 | Diagnostic Imaging Report ---
EXAM: CT Abdomen and Pelvis WITHOUT contrast INDICATION: GI bleed COMPARISON: Abdominal CT 10/16/2018. TECHNIQUE: Abdomen and pelvis were scanned utilizing a multidetector helical scanner from the lung base to the pubic symphysis without administration of IV contrast. Absence of intravenous contrast decreases sensitivity for detection of focal lesions and vascular pathology. Coronal and sagittal reformations were obtained. Routine protocol was performed. IV CONTRAST: None ORAL CONTRAST: None COMPLICATIONS: None RADIATION DOSE: Total DLP: 628 mGy*cm Estimated effective dose: (DLP x 0.015 x size factor) mSv CTDIvol has been reviewed. It is below the limits set by the Radiation Protocol Committee (RPC). Dose modulation, iterative reconstruction, and/or weight based adjustment of the mA/kV was utilized to reduce the radiation dose to as low as reasonably achievable. FINDINGS: LINES and TUBES: Superior approach central venous catheter, tip in the right atrium.. LOWER THORAX: Low density blood within the left ventricular cavity. Coronary calcifications. Bibasilar atelectasis. HEPATOBILIARY: Nodular liver contour. An indeterminate 2.7 cm subtle hypodense area in the superior right hepatic lobe (series 2 image 17) . No biliary ductal dilation. GALLBLADDER: Gallstones. No wall thickening or overdistention. SPLEEN: Splenomegaly. PANCREAS: No focal masses or ductal dilatation. ADRENALS: A 1.1 cm right adrenal nodule is similar compared to 2019. No left adrenal nodules KIDNEYS/URETERS: No hydronephrosis. No cystic or solid mass lesions. No stones. GI TRACT: Mild small and large intestinal wall thickening. Appendectomy clips. PELVIC ORGANS/BLADDER: Unremarkable. LYMPH NODES: No lymphadenopathy. VESSELS: Unremarkable. PERITONEUM / RETROPERITONEUM: Moderate volume ascites. No free air. BONES: Mild T10 vertebral body compression fracture. SOFT TISSUES: Unremarkable. IMPRESSION: 1. Hepatic cirrhosis and portal hypertension with splenomegaly and moderate volume ascites, and portal congestive enterocolopathy. An indeterminate 2.7 cm subtle hypodense area in the superior right hepatic lobe. Recommend nonemergent multiphase contrast-enhanced liver MRI for further catheterization. 2. Mild T10 vertebral body compression fracture, appears chronic but is new compared to 10/16/2018. 3. CT findings of anemia Signed by: Aime Spain DO on 10/18/2019 11:30 PM
[2019-10-19] VITALS (22 sets, daily range): BP systolic 85–119; BP diastolic 44–66
[2019-10-19] MEDS: OCTREOTIDE ACETATE 500 MCG in SODIUM CHLORIDE 0.9% 250ML 249 ML IV SCH ×2 (05:45→17:37)
[2019-10-19] MEDS: SUCRALFATE 1 GM TAB PO SCH ×4 (05:45→20:55)
[2019-10-19] MEDS ORDERED: OCTREOTIDE ACETATE 0 ML ONE (05:46)
[2019-10-19] MEDS ORDERED: PROPRANOLOL HCL 10 MG TAB PO SCH (06:00)
[2019-10-19 06:13] LABS: BASOPHILS # (AUTO) 0.1 (0.0-0.1); BASOPHILS % 0.6 % (0.0-1.0); EOSINOPHILS # (AUTO) 0.5 (0.0-0.4); EOSINOPHILS % 4.9 % (0.0-6.0); LYMPHOCYTES # (AUTO) 0.7 (1.0-3.2); LYMPHOCYTES % 6.9 % (18.0-39.1); MEAN CORPUSCULAR HEMOGLOBIN 36.4 pg (28-32); MEAN CORPUSCULAR HGB CONC 35.6 g/dL (31-35); MEAN CORPUSCULAR VOLUME 102.3 fL (81-99); NEUTROPHILS # (AUTO) 8.3 (2.1-6.9); NEUTROPHILS % 77.8 % (38.7-80.0); PLATELET COUNT 69 x10e3/uL (140-360); RED BLOOD COUNT 1.73 x10e6/uL (4.3-5.7); RED CELL DISTRIBUTION WIDTH 20.9 % (11.7-14.4)
[2019-10-19 06:38] LABS: HEMATOCRIT 17.7 % (38.2-49.6); HEMOGLOBIN 6.3 g/dL (14.0-18.0)
[2019-10-19 06:43] LABS: ALBUMIN 2.1 g/dL (3.5-5.0); ALBUMIN/GLOBULIN RATIO 0.7 (0.8-2.0); ANION GAP 12.3 mmol/L (8-16); CALCIUM 7.6 mg/dL (8.4-10.2); CREATININE, SERUM 2.61 mg/dL (0.72-1.25); POTASSIUM 3.3 mmol/L (3.5-5.1)
[2019-10-19 07:03] LABS: INR 1.54; PROTHROMBIN TIME 19.4 seconds (11.9-14.5)
[2019-10-19 09:21] LABS: BASOPHILS # (AUTO) 0.1 (0.0-0.1); BASOPHILS % 0.5 % (0.0-1.0); EOSINOPHILS # (AUTO) 0.6 (0.0-0.4); EOSINOPHILS % 5.1 % (0.0-6.0); LYMPHOCYTES # (AUTO) 0.8 (1.0-3.2); LYMPHOCYTES % 7.3 % (18.0-39.1); MEAN CORPUSCULAR HEMOGLOBIN 34.9 pg (28-32); MEAN CORPUSCULAR HGB CONC 34.7 g/dL (31-35); MEAN CORPUSCULAR VOLUME 100.5 fL (81-99); MONOCYTES % 8.9 % (4.4-11.3); NEUTROPHILS # (AUTO) 8.6 (2.1-6.9); NEUTROPHILS % 77.5 % (38.7-80.0); PLATELET COUNT 84 x10e3/uL (140-360); RED BLOOD COUNT 1.95 x10e6/uL (4.3-5.7); RED CELL DISTRIBUTION WIDTH 20.8 % (11.7-14.4)
[2019-10-19 09:28] LABS: HEMATOCRIT 19.6 % (38.2-49.6); HEMOGLOBIN 6.8 g/dL (14.0-18.0)
[2019-10-19] MEDS ORDERED: PHYTONADIONE 10MG/ML 20 MG in SODIUM CHLORIDE 0.9% 50ML 50 ML IV ONE (09:30)
--- NOTE | 2019-10-19 10:06 | Consultation ---
DATE OF CONSULTATION: Pulmonary Critical Care Consultation CHIEF COMPLAINT: History of cirrhosis, GI bleeding, and end-stage renal disease. HISTORY OF PRESENT ILLNESS: The patient is a 38-year-old man. He has cirrhosis as well as end-stage renal disease. He requires dialysis three times a week. He also has a history of prior GI bleeding related to cirrhosis. He now comes to the emergency department complaining of some discolored stools. He has not had any nausea or vomiting. He was found to have anemia as an outpatient, but has not been able to pursue his GI workup yet. When he arrived in the emergency department, his hemoglobin was 4.2. He has required 4 units of packed red blood cells so far. PAST MEDICAL HISTORY: 1. Cirrhosis with splenomegaly. 2. End-stage renal disease. 3. Hypertension. 4. Anemia. 5. Pancreatitis. PAST SURGICAL HISTORY: Status post dialysis graft placement. SOCIAL HISTORY: The patient is not a smoker. He was a drinker previously. FAMILY HISTORY: Family history is significant for hypertension. ALLERGIES: NO KNOWN DRUG ALLERGIES. REVIEW OF SYSTEMS: The patient is not having any fever. He has no headache or neck pain. He has no chest pain. He is not having any cough. He has some mild dyspnea. There is no abdominal pain. There is no nausea or vomiting. There is some mild leg edema. PHYSICAL EXAMINATION: VITAL SIGNS: The blood pressure is 88/50, saturation is 98% on 2 L. HEENT: Shows no facial swelling or erythema. LYMPHATIC: Shows no submandibular, cervical, or supraclavicular adenopathy. CARDIAC: Reveals regular rate and rhythm with normal S1, S2. LUNGS: Auscultation of lungs reveals decreased breath sounds at the bases. There is no wheezing. ABDOMEN: Soft and nontender. There is no rebound or guarding. EXTREMITIES: Shows no leg edema or calf tenderness. There is no cyanosis or clubbing. SKIN: Shows no rashes. NEUROLOGICAL: Shows no focal abnormalities. LABORATORY DATA: The hemoglobin is 6.8 and the white blood cell count is 11.1. The platelet count is 84. The BUN to creatinine ratio is 14 to 2.61. Sodium is 134, potassium is 3.3. Albumin is 2.1. IMPRESSION: 1. Anemia secondary to acute blood loss. 2. Cirrhosis. 3. End-stage renal disease. 4. Splenomegaly and thrombocytopenia. 5. Hypertension. 6. Ascites. PLAN: 1. Continue to monitor blood counts and transfuse as needed. 2. Continue dialysis as needed. 3. Continue Octreotide. 4. Continue Protonix. 5. The patient is scheduled for ultrasound-guided paracentesis. MD BRYSON Angela/SINDI /[id number]
[2019-10-19] MEDS ORDERED: SODIUM CHLORIDE 0.9% 250ML 250 ML IV NR (10:15)
[2019-10-19] MEDS: PANTOPRAZOLE 40 MG 10ML VIAL IV SCH ×2 (10:35→20:55)
[2019-10-19] MEDS ORDERED: SODIUM CHLORIDE 0.9% 250ML 250 ML ONE ×2 (11:34→17:19)
[2019-10-19] MEDS ORDERED: SODIUM CHLORIDE 0.9% 250ML 250 ML IV ONE (13:00)
[2019-10-19] MEDS ORDERED: POTASSIUM CHLORIDE 20 MEQ TAB CR PO NR (13:30)
[2019-10-19] MEDS ORDERED: CALCIUM GLUCONATE 10% INJ 9.3 MEQ in SODIUM CHLORIDE 0.9% 100 ML 100 ML IV ONE (13:30)
[2019-10-19 15:30] LABS: BASOPHILS # (AUTO) 0.1 (0.0-0.1); BASOPHILS % 0.7 % (0.0-1.0); EOSINOPHILS # (AUTO) 0.5 (0.0-0.4); EOSINOPHILS % 4.1 % (0.0-6.0); HEMATOCRIT 22.1 % (38.2-49.6); HEMOGLOBIN 7.6 g/dL (14.0-18.0); LYMPHOCYTES # (AUTO) 0.6 (1.0-3.2); LYMPHOCYTES % 5.3 % (18.0-39.1); MEAN CORPUSCULAR HEMOGLOBIN 33.8 pg (28-32); MEAN CORPUSCULAR HGB CONC 34.4 g/dL (31-35); MEAN CORPUSCULAR VOLUME 98.2 fL (81-99); MONOCYTES % 8.6 % (4.4-11.3); NEUTROPHILS # (AUTO) 9.3 (2.1-6.9); NEUTROPHILS % 80.3 % (38.7-80.0); PLATELET COUNT 87 x10e3/uL (140-360); RED BLOOD COUNT 2.25 x10e6/uL (4.3-5.7); RED CELL DISTRIBUTION WIDTH 19.9 % (11.7-14.4)
[2019-10-19] MEDS: FUROSEMIDE INJ 10 MG/ML 2 ML VIAL IV PRN ×2 (16:02→20:55)
--- NOTE | 2019-10-19 18:47 | NUR ---
IR at bedside at 1640 to do image guided paracentesis. Fluid collected and sent to lab per orders. Dr. Sam updated and new orders to advance diet to full liquid. Results from paracentesis not back and will call Dr. Sam with results nat. Patient receiving FFP's currently without issue. Patient received 1 unit PRBC this shift without issue. Last H/H with increase of 7.9/.
--- NOTE | 2019-10-19 20:22 | NUR ---
SPOKE TO DR. MORGAN ROBERTSON, NEW ORDERS RECEIVED FOR LAB TESTS ON ASCITIC FLUID.
[2019-10-19] MEDS ORDERED: FUROSEMIDE INJ 10 MG/ML 2 ML VIAL ONE (20:48)
[2019-10-19] MEDS: MULTIVITAMINS- 12 INJECTION 10 ML, FOLIC ACID MDV 5 MG, THIAMINE HCL INJ 100 MG in SODI... IV SCH (20:55)
[2019-10-19 21:18] LABS: BODY FLUID APPEARANCE CLOUDY; BODY FLUID COLOR RED; BODY FLUID TYPE PERITONEAL
[2019-10-19 21:19] LABS: RBC,BODY FLUID 2375 cells/uL; WBC,BODY FLUID 88 cells/uL
[2019-10-19 22:38] LABS: LYMPHOCYTES,BODY FLUID 65 %; MONO/MACROPHG,BODY FLUID 5 %; NEUTROPHILS,BODY FLUID 20 %; OTHER CELLS,BODY FLUID 10 %
[2019-10-19] MEDS: METHYLPREDNISOLONE SOD SUCC 40 MG/ML VIAL 1ML IV SCH (23:20)
[2019-10-20] VITALS (13 sets, daily range): BP systolic 93–116; BP diastolic 53–77
[2019-10-20] MEDS ORDERED: METHYLPREDNISOLONE SOD SUCC 40 MG/ML VIAL 1ML IV SCH
[2019-10-20] MEDS: OCTREOTIDE ACETATE 500 MCG in SODIUM CHLORIDE 0.9% 250ML 249 ML IV SCH ×3 (03:08→18:02)
[2019-10-20 05:27] LABS: BASOPHILS # (AUTO) 0.1 (0.0-0.1); BASOPHILS % 0.4 % (0.0-1.0); EOSINOPHILS # (AUTO) 0.1 (0.0-0.4); EOSINOPHILS % 0.5 % (0.0-6.0); HEMATOCRIT 22.5 % (38.2-49.6); LYMPHOCYTES # (AUTO) 0.4 (1.0-3.2); LYMPHOCYTES % 3.3 % (18.0-39.1); MEAN CORPUSCULAR HEMOGLOBIN 35.6 pg (28-32); MEAN CORPUSCULAR HGB CONC 35.6 g/dL (31-35); MONOCYTES # (AUTO) 0.6 (0.2-0.8); MONOCYTES % 4.7 % (4.4-11.3); NEUTROPHILS # (AUTO) 11.5 (2.1-6.9); NEUTROPHILS % 89.6 % (38.7-80.0); RED BLOOD COUNT 2.25 x10e6/uL (4.3-5.7); RED CELL DISTRIBUTION WIDTH 19.6 % (11.7-14.4)
[2019-10-20 05:29] LABS: PLATELET COUNT 97 x10e3/uL (140-360)
[2019-10-20 05:46] LABS: ALANINE AMINOTRANSFERASE 19 IU/L (0-55); ALBUMIN 2.3 g/dL (3.5-5.0); ALBUMIN/GLOBULIN RATIO 0.7 (0.8-2.0); ALKALINE PHOSPHATASE 132 IU/L (40-150); ANION GAP 14.3 mmol/L (8-16); BLOOD UREA NITROGEN 19 mg/dL (7-26); BUN/CREATININE RATIO 6 (6-25); CARBON DIOXIDE 22 mmol/L (22-29); CHLORIDE 96 mmol/L (98-107); CREATININE, SERUM 3.44 mg/dL (0.72-1.25); EST GLOMERULAR FILTRATION RATE 20 ML/MIN (60-); GLUCOSE 224 mg/dL (74-118); PHOSPHORUS 1.8 MG/DL (2.3-4.7); POTASSIUM 3.3 mmol/L (3.5-5.1); SODIUM 129 mmol/L (136-145)
[2019-10-20] MEDS: METHYLPREDNISOLONE SOD SUCC 40 MG/ML VIAL 1ML IV SCH ×3 (06:05→19:06)
[2019-10-20] MEDS: MULTIVITAMINS- 12 INJECTION 10 ML, FOLIC ACID MDV 5 MG, THIAMINE HCL INJ 100 MG in SODI... IV SCH ×2 (06:05→23:54)
[2019-10-20] MEDS: PROPRANOLOL HCL 10 MG TAB PO SCH ×2 (09:22→19:06)
[2019-10-20] MEDS: PANTOPRAZOLE 40 MG 10ML VIAL IV SCH ×2 (09:22→20:30)
[2019-10-20] MEDS: SUCRALFATE 1 GM TAB PO SCH ×4 (09:22→20:31)
--- NOTE | 2019-10-20 10:00 | Diagnostic Imaging Report ---
Date and Time: 10/19/19 Procedure: Paracentesis gravure press operator: Basilia Pre-operative diagnosis: Ascites Post-operative diagnosis: Ascites Conscious Sedation: None Additional Medications: Lidocaine 1% local anesthesia Estimated blood loss: Minimal Specimens: 4100 CC kamila fluid, sent for labs as directed. Implants: None COmplications: No immediate COndition at completion: Stable. Disposition: remain in ICU DISCUSSION: Informed consent was obtained and documented in the medical record. Right abdomen was prepped and draped in the standard sterile fashion. 1% lidocaine was infiltrated into the skin and subcutaneous tissues for local anesthesia. Under continuous ultrasound guidance a 5 Fr Aphriaeh needle catheter was advanced into the peritoneal space and a permanent sonographic image was stored. The catheter was advanced off the needle and connected to vacuum bottle with subsequent evacuation of 4100 cc kamila-colored fluid. Catheter was removed and a sterile dressing was applied. Patient tolerated the procedure without immediate complication. IMPRESSION: Successful ultrasound guided paracentesis with evacuation of 4100 cc kamila fluid. Specimen was submitted for laboratory analysis as requested. Signed by: Dr. Oscar Cui M.D. on 10/20/2019 9:57 AM
--- NOTE | 2019-10-20 13:49 | Progress Note ---
DATE: SUBJECTIVE: The patient is afebrile. He received packed red blood cells yesterday as well as FFP. He does not describe any active bleeding, melena, or hematochezia. PHYSICAL EXAMINATION: VITAL SIGNS: The blood pressure is 112/77, saturation is 97%. HEENT: Shows no facial swelling or erythema. LYMPHATIC: Shows no submandibular, cervical, or supraclavicular adenopathy. CARDIAC: Reveals regular rate and rhythm with normal S1 and S2. LUNGS: Auscultation of lungs reveals rhonchorous breath sounds bilaterally. There is no wheezing. ABDOMEN: Soft and nontender. There is no rebound or guarding. There is ascites. LABORATORY DATA: White blood cell count is 12.8, hemoglobin is 8. The platelet count is 97. The BUN to creatinine ratio is 19 to 3.77. Other electrolytes are within normal limits. Potassium is 3.3. IMPRESSION: 1. Anemia secondary to acute blood loss. 2. Cirrhosis. 3. End-stage renal disease. 4. Splenomegaly and thrombocytopenia. 5. Hypertension. PLAN: 1. Await dialysis later today. 2. Continue to monitor blood counts and transfuse as needed. 3. Continue current antibiotics. 4. Possible transfer out of intensive care unit. Max Govea MD [facility]/SINDI /[id number]
--- NOTE | 2019-10-20 21:10 | NUR ---
Patient transferred to telemetry floor room 288. Rn report given to KATHERINE Kearns.
--- NOTE | 2019-10-20 21:10 | NUR ---
Pt transferred to room 288 from ICU via WC, report received from [facility]OD[facility] ICU nurse. Pt alert and oriented to name, denies pain at this time. Oriented to room, call light within reach.
--- NOTE | 2019-10-20 22:56 | Progress Note ---
DATE: CONSULTING PHYSICIANS: 1. Dr. Bee Mcghee with Nephrology. 2. Dr. Max Govea with Pulmonology. 3. Dr. Sp Sam with Gastroenterology. PRIMARY CARE PHYSICIAN: Dr. Bib Nolasco. Outpatient liver transplant and renal transplant teams at [facility] [place], [place] and [facility], followed up on an outpatient basis. SUBJECTIVE: The patient denies any complaints of pain, headache, dizziness, sore throat, shortness of breath, cough, phlegm, nausea, vomiting, diarrhea, constipation, chest pain, palpitations. He had a bowel movement today. The patient was transferred from ICU room 191 to room 288 today. OBJECTIVE: VITAL SIGNS: Temperature 98.9, T-max 100.1, pulse 73, blood pressure 112/77, respirations 20, oxygen saturation 97% on room air. GENERAL: No acute distress. Jaundiced. LUNGS: Clear to auscultation. Respiratory pattern even and unlabored. HEENT: EOMI. NECK: Supple. CARDIOVASCULAR: Regular rate and rhythm. No murmur. Normal saline banana bag infusing at 50 mL an hour peripheral IV. ABDOMEN: Bowel sounds positive. Soft, nontender, obese. EXTREMITIES: No pitting edema. No clubbing, cyanosis, or marked swelling or signs of DVT. NEUROLOGICAL: GCS 15. Nonfocal. LABORATORY DATA: WBCs 12.87, hemoglobin 8.0, hematocrit 22.5, platelets 97. Sodium 129, potassium 3.3, chloride 96, CO2 22, anion gap 14.3, BUN 19, creatinine 3.44, estimated GFR 20, glucose 224, calcium 8.0, phosphorus 1.8, total bilirubin greater than 25, AST 95, ALT 19, alkaline phosphatase 132, total protein 5.8, albumin 2.3. TSH 0.766. Morning cortisol sample pending. Peritoneal fluid from yesterday with red color, cloudy appearance, WBCs 88, RBC 2375, total cell count 100, neutrophils 20, lymphocytes 65, monocytes 5, other cells 10. Ascites fluid final Gram stain results negative. Fluid culture pending. No new imaging results. 10/17, hepatitis panel was negative. PROCEDURES: The patient underwent an ultrasound-guided paracentesis yesterday on 10/18 with 4100 mL removed. No hemodialysis today. Hemodialysis planned for in the morning. ASSESSMENT AND PLAN: 1. Severe anemia due to chronic blood loss, status post blood transfusions x5, status post FFP transfusion x1. GI team following. Continue IV octreotide drip and continue IV Protonix. The patient transferred out of ICU today to the floor. 2. Alcoholic cirrhosis. Coags okay. He likely has varices. Continue banana bag. 3. Hypertension with end-stage renal disease. Blood pressure controlled. Takes midodrine for hemodialysis. 4. End-stage renal disease on hemodialysis Sunday, Sunday, and Sunday. Hemodialysis was planned today. However, no nurse available apparently to complete the dialysis, hemodialysis planned 1st thing in the morning. 5. Hypokalemia. Potassium level 3.3 (2.7), improved. Defer to Nephrology. 6. Prophylaxis. No anticoagulation, on Protonix. Billing code 04157. Time spent 35 minutes. Dictated by Donn Drew NP MD JENNIFER LopezP/MODL /[id number]
[2019-10-21 00:38] VITALS: BP 100/66
[2019-10-21] MEDS: METHYLPREDNISOLONE SOD SUCC 40 MG/ML VIAL 1ML IV SCH ×3 (01:45→12:12)
[2019-10-21] MEDS: OCTREOTIDE ACETATE 500 MCG in SODIUM CHLORIDE 0.9% 250ML 249 ML IV SCH ×2 (03:30→07:30)
[2019-10-21 05:26] VITALS: BP 98/64
[2019-10-21 06:29] LABS: BASOPHILS % 0.2 % (0.0-1.0); HEMATOCRIT 21.7 % (38.2-49.6); HEMOGLOBIN 7.8 g/dL (14.0-18.0); LYMPHOCYTES # (AUTO) 0.5 (1.0-3.2); LYMPHOCYTES % 3.9 % (18.0-39.1); MEAN CORPUSCULAR HEMOGLOBIN 35.8 pg (28-32); MEAN CORPUSCULAR HGB CONC 35.9 g/dL (31-35); MEAN CORPUSCULAR VOLUME 99.5 fL (81-99); MONOCYTES # (AUTO) 0.4 (0.2-0.8); MONOCYTES % 3.3 % (4.4-11.3); NEUTROPHILS # (AUTO) 11.2 (2.1-6.9); NEUTROPHILS % 91.7 % (38.7-80.0); PLATELET COUNT 103 x10e3/uL (140-360); RED BLOOD COUNT 2.18 x10e6/uL (4.3-5.7); RED CELL DISTRIBUTION WIDTH 19.4 % (11.7-14.4)
--- NOTE | 2019-10-21 06:55 | NUR ---
Report given to morning nurse. Pt alert and oriented, no distress noted, denies pain or discomfort.
[2019-10-21 07:01] LABS: ALANINE AMINOTRANSFERASE 17 IU/L (0-55); ALBUMIN 2.2 g/dL (3.5-5.0); ALBUMIN/GLOBULIN RATIO 0.7 (0.8-2.0); ALKALINE PHOSPHATASE 128 IU/L (40-150); ANION GAP 16.8 mmol/L (8-16); BLOOD UREA NITROGEN 30 mg/dL (7-26); BUN/CREATININE RATIO 8 (6-25); CALCIUM 7.9 mg/dL (8.4-10.2); CARBON DIOXIDE 19 mmol/L (22-29); CHLORIDE 97 mmol/L (98-107); CREATININE, SERUM 3.84 mg/dL (0.72-1.25); EST GLOMERULAR FILTRATION RATE 18 ML/MIN (60-); GLUCOSE 192 mg/dL (74-118); POTASSIUM 3.8 mmol/L (3.5-5.1); SODIUM 129 mmol/L (136-145)
[2019-10-21 08:01] VITALS: BP 114/75
[2019-10-21] MEDS: SUCRALFATE 1 GM TAB PO SCH ×2 (08:53→12:10)
[2019-10-21] MEDS: PANTOPRAZOLE 40 MG 10ML VIAL IV SCH (08:53)
[2019-10-21] MEDS: PROPRANOLOL HCL 10 MG TAB PO SCH (08:54)
[2019-10-21 09:11] LABS: ANISOCYTOSIS SLIGHT; LYMPHOCYTES % (MANUAL) 3 % (19-48); MONOCYTES % (MANUAL) 2 % (3.4-9.0); NEUTROPHILS % (MANUAL) 95 % (40-74); PLATELET ESTIMATE SLIGHTLY DECREASED; PLATELET MORPHOLOGY COMMENT NORMAL; TEAR DROP CELLS FEW
[2019-10-21 09:12] LABS: RBC MORPHOLOGY COMMENT NORMAL
[2019-10-21] MEDS ORDERED: ACETAMINOPHEN 325 MG TAB PO PRN (10:15)
[2019-10-21] MEDS ORDERED: ONDANSETRON HCL INJ 2MG/ML 2ML 2 MG/ML VIAL IV PRN (10:15)
[2019-10-21] MEDS ORDERED: HYDRALAZINE HCL 20 MG/ML VIAL IV PRN (10:15)
[2019-10-21] MEDS ORDERED: PROPRANOLOL HCL10 MG PO (10:46)
[2019-10-21] MEDS ORDERED: CARAFATE1 GM PO (10:46)
[2019-10-21] MEDS ORDERED: PREDNISONE20 MG PO (10:46)
--- NOTE | 2019-10-21 11:00 | NUR ---
Spoke with Dr. Mcghee to clarify blood order and he states he does want patient to receive 2units of blood with dialysis today.
[2019-10-21 11:06] LABS: BILIRUBIN,DIRECT > 15.0 mg/dL (0.0-0.5)
[2019-10-21 11:19] VITALS: BP 114/75
[2019-10-21] MEDS ORDERED: SODIUM CHLORIDE 0.9% 250ML 250 ML IV ONE (11:20)
[2019-10-21 11:34] VITALS: BP 98/64
[2019-10-21 11:34] LABS: COLOR,URINE ORANGE (YELLOW)
[2019-10-21 11:35] LABS: CLARITY,URINE CLEAR (CLEAR); LEUKOCYTE ESTERASE ,URINE NEGATIVE (NEGATIVE); NITRITE,URINE NEGATIVE (NEGATIVE); PROTEIN,URINE DIPSTICK 2+ (NEGATIVE)
[2019-10-21 11:36] LABS: KETONES,URINE 1+ (NEGATIVE)
[2019-10-21 11:41] LABS: BILIRUBIN,URINE LARGE (NEGATIVE); URINE UROBILINOGEN 8 mg/dL (0.2 - 1)
[2019-10-21 11:58] LABS: RBC,URINE >50 /HPF (0-5); WBC,URINE (MAN) 0-5 /HPF (0-5)
[2019-10-21 11:59] LABS: BACTERIA,URINE MANY /HPF; EPITHELIAL CELLS,URINE MODERATE /LPF
[2019-10-21 15:34] VITALS: BP 106/71
--- NOTE | 2019-10-21 17:46 | NUR ---
Pt discharged home at this time. Pt had dialysis treatment prior to discharge. 0 s/s of acute distress noted at time of discharge. Denies any pain at time of discharge. Pt verbalized understanding of all discharge instructions and follow up appointments. Tessio line in place and dressing is intact.
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
== END 2019-10-21 16:45 | disposition home or self-care (01) | DRG 432 ==
LOC: ER 08:51 → ERHOLD 10:09 → ICU 11:50 → MED/SURG3 10-20 20:52
PROVIDERS: ADMIT Internal Medicine; ATTEND Internal Medicine
PROC: 30233N1 Transfusion of Nonautologous Red Blood Cells into Peripheral Vein, Percutaneous Approach (ICD-10-PCS; 2019-10-18)
PROC: 5A1D70Z Performance of Urinary Filtration, Intermittent, Less than 6 Hours Per Day (ICD-10-PCS; 2019-10-18)
PROC: 0W9G3ZZ Drainage of Peritoneal Cavity, Percutaneous Approach (ICD-10-PCS; principal; 2019-10-19)
PROC: 30233K1 Transfusion of Nonautologous Frozen Plasma into Peripheral Vein, Percutaneous Approach (ICD-10-PCS; 2019-10-19)
PROC: 5A1D70Z Performance of Urinary Filtration, Intermittent, Less than 6 Hours Per Day (ICD-10-PCS; 2019-10-21)
DX: K70.31 Alcoholic cirrhosis of liver with ascites (principal); N18.6 End stage renal disease; I85.11 Secondary esophageal varices with bleeding; D62 Acute posthemorrhagic anemia; I12.0 Hypertensive chronic kidney disease with stage 5 chronic kidney disease or end stage renal disease; M48.54XA Collapsed vertebra, not elsewhere classified, thoracic region, initial encounter for fracture; K70.10 Alcoholic hepatitis without ascites; Z87.891 Personal history of nicotine dependence; R16.1 Splenomegaly, not elsewhere classified; D69.6 Thrombocytopenia, unspecified; Z99.2 Dependence on renal dialysis; E87.6 Hypokalemia; K80.20 Calculus of gallbladder without cholecystitis without obstruction; F10.10 Alcohol abuse, uncomplicated; E83.51 Hypocalcemia; Z11.59 Encounter for screening for other viral diseases; K70.11 Alcoholic hepatitis with ascites
CPT/HCPCS: 36415; 49083; 71045; 74176; 76705; 80048; 80053; 80076; 81001; 82105; 82140; 82248; 82533; 82550; 82553; 82607; 82728; 82746; 83540; 83735; 83880; 84100; 84155; 84443; 84466; 84484; 85025; 85045; 85610; 85730; 86850; 86900; 86920; 87070; 87205; 88112; 88305; 89051; 90962; 93005; 96361; 99284; C1729; J0610; J1644; J1940; J2353; J2354; J2920; J3411; J3430; J7030; J7050; P9016; P9017; U0002

== ENCOUNTER 2019-11-01 20:32 | Inpatient (IN) | payer BC ==
[~2019-11-01] VITALS: Ht 180.3 cm; Wt 97.6 kg
[~2019-11-01 20:32] MED LIST changes: +CARAFATE1 GM PO; +PREDNISONE20 MG PO; +PROPRANOLOL HCL10 MG PO
[2019-11-01] MEDS ORDERED: SODIUM CHLORIDE 0.9% 1000ML 1,000 ML IV STA (20:48)
[2019-11-01] MEDS ORDERED: PIPER-TAZ 3.375 GM 50 ML IV STA (20:48)
[2019-11-01 21:20] LABS: BASOPHILS # (AUTO) 0.1 (0.0-0.1); BASOPHILS % 0.2 % (0.0-1.0); LYMPHOCYTES % 4.6 % (18.0-39.1); MEAN CORPUSCULAR HEMOGLOBIN 34.3 pg (28-32); MEAN CORPUSCULAR HGB CONC 35.4 g/dL (31-35); MEAN CORPUSCULAR VOLUME 97.1 fL (81-99); MONOCYTES # (AUTO) 1.4 (0.2-0.8); MONOCYTES % 6.3 % (4.4-11.3); NEUTROPHILS # (AUTO) 19.8 (2.1-6.9); NEUTROPHILS % 87.4 % (38.7-80.0); PLATELET COUNT 126 x10e3/uL (140-360); RED BLOOD COUNT 1.02 x10e6/uL (4.3-5.7); RED CELL DISTRIBUTION WIDTH 19.2 % (11.7-14.4)
[2019-11-01 21:27] LABS: HEMOGLOBIN 3.5 g/dL (14.0-18.0)
[2019-11-01 21:28] LABS: HEMATOCRIT 9.9 % (38.2-49.6)
[2019-11-01 21:33] LABS: ALANINE AMINOTRANSFERASE 40 IU/L (0-55); ALBUMIN 2.7 g/dL (3.5-5.0); ALBUMIN/GLOBULIN RATIO 1.4 (0.8-2.0); BLOOD UREA NITROGEN 75 mg/dL (7-26); BUN/CREATININE RATIO 21 (6-25); CHLORIDE 98 mmol/L (98-107); EST GLOMERULAR FILTRATION RATE 19 ML/MIN (60-); POTASSIUM 3.7 mmol/L (3.5-5.1)
[2019-11-01 21:37] LABS: ALKALINE PHOSPHATASE 109 IU/L (40-150); ANION GAP 18.7 mmol/L (8-16); CARBON DIOXIDE 22 mmol/L (22-29); CREATINE KINASE 24 IU/L (30-200); GLUCOSE 141 mg/dL (74-118); SODIUM 135 mmol/L (136-145)
--- NOTE | 2019-11-01 21:42 | Diagnostic Imaging Report ---
EXAMINATION: CHEST SINGLE (PORTABLE) INDICATION: ^Y ^liver cirrohsis ^[id number] ^[id number] COMPARISON: 10/18/2019 FINDINGS: AP view TUBES and LINES: Stable right IJ dialysis catheter. LUNGS: Lungs are well inflated. Mild left lower lung field hazy opacities. Mild central vascular congestion. PLEURA: No pleural effusion or pneumothorax. HEART AND MEDIASTINUM: The cardiac silhouette is enlarged. BONES AND SOFT TISSUES: No acute osseous lesion. Soft tissues are unremarkable. UPPER ABDOMEN: No free air under the diaphragm. IMPRESSION: Mild left lower lung field hazy opacities, representing atelectasis versus developing pneumonia in the appropriate clinical context. Enlarged cardiac silhouette and mild central vascular congestion. Signed by: Dr. Tejas Casas MD on 11/01/2019 9:39 PM
--- OUTSIDE RECORDS SUMMARY | 2019-11-01 21:43 | XMS REPORT | Clinical Summary ---
Author Author [facility] Organization [facility] Address Unknown Phone Unavailable Care Team Providers Care Caustic Mixer Name Role Phone PCP Unavailable Allergies No [...] (>/= 19 yrs) Results Not on fileafter 10/31/2018 Insurance Type Payer Benefit Subscriber ID Effective Phone Address Plan / Dates Group BC/BS BC/BS PPO xxxxxxxxxxxx 2017-P [phone] [id number] [place] [address] Advance Directives Date Inactivated Comments Code Status Date Activated 01/28/2018 3:20 PM Full Code 01/24/2018 10:54 PM
--- OUTSIDE RECORDS SUMMARY | 2019-11-01 21:43 | XMS REPORT | Clinical Summary ---
Author Author PATY GoNabitSt. Luke'S Meridian Medical CenterEcquire, Inc.[facility] HospitalCitycelebrityKadlec [facility] Address Unknown Phone Unavailable Care Team Providers Care Reliability Technicians Name Role Phone Keith Hammond Unavailable Pcp, [...] disease) on dialysis (HCC); Symptomatic anemia 05/04/2019 [facility] Cardiology - Encounter 05/10/2019 05/04/2019 Travel Marissa [...] Gena Gordon MD Mindikoglu, Ayse Leyla, MD [facility] Alcoholic hepatitis with ascites (Primar y [...] evaluation for end stage renal disease 02/03/2019 [facility] Radiology Encounter System, Provider Not In 02/03/2019 [...] 33.9 in adult; Portal hypertension (HCC) 12/21/2018 [facility] - Encounter 12/26/2018 12/21/2018 Orders Only [facility] Internal [facility] mynor 12/21/2018 Travel Jessie Emery Appointment ([facility] for case consultant Annika camacho (pt currently admitted @ [facility]) Scheduled 12/17 clinic appt @ 9:30. Itinerary mailed to pt.) 11/18/2018 Telephone Transplant Jessei Philippe 11/12/2018 Documentation Transplant Hepatolo gy Nasra Cavazos 11/11/2018 Documentation Transplant Hepatolo gy Emma Silva CRNA 11/10/2018 Anesthesia Gastroenterology Event Devyn Lantigua MD COLONOSCOPY,BIOPSY 11/10/2018 Surgery Gastroenterology Nasra Cavazos 11/08/2018 Abstract Transplant Hepatolo gy Drake Garcia Jr., MD 11/07/2018 Abstract Transplant Hepatolo gy Minal Taylor MD Neason, Chau Le, MD Acute blood [...] liver failure with hepatic coma (HCC) 10/16/2018 [facility] General Internal [place] dicine - Encounter 11/15/2018 after 10/31/2018 Family History Medical History Relation Name Comments [...] unspecified vessel or lesion type, unspecified whether [place] or transplanted heart (HCC) BODY FLUID CULTURE [...] ms QTC Calculatio n(Bazett) 490 ms R Kent 151 degrees T Kent -88 degrees Undetermi lara rhythm Left posterior [...] ms QTC Calculatio n(Bazett) 262 ms R Kent 153 degrees T Kent -84 degrees Sinus tachycardi a with 1st [...] ms QTC Calculatio n(Bazett) 511 ms P Kent 254 degrees R Kent 46 degrees T Kent -73 degrees Atrial flutter with variable A-V [...] ms QTC Calculatio n(Bazett) 0 ms R Kent 0 degrees T Kent 0 degrees No QRS complexes found, no [...] ms QTC Calculatio n(Bazett) 557 ms P Kent 45 degrees R Kent 33 degrees T Kent 29 degrees Normal sinus rhythm Nonspecifi c [...] Alcohol ic hepatitis with DIFFERENTIAL 9:34 AM GUIDE FOREIGN TOUR ascites ESRD on hemodialysis (HCC) PROTHROMBIN TIME/INR Routine 04/07/2019 Alcoholic hepatitis with 9:34 AM GUIDE FOREIGN TOUR ascites ESRD on hemodialysis (HCC) HEPATIC FUNCTION PANEL Routine 04/07/2019 Alcohol ic hepatitis with 9:34 AM GUIDE [employer]EIGN TOUR ascites ESRD on hemodialysis (HCC) CBC W/PLT COUNT & AUTO Routine 04/07/2019 Alcohol ic hepatitis with DIFFERENTIAL 9:34 AM GUIDE [employer]EIGN TOUR ascites ESRD on hemodialysis (HCC) BASIC METABOLIC PANEL (7) Routine 04/07/2019 Alco holic hepatitis with 9:34 AM GUIDE FOREIGN TOUR ascites ESRD on hemodialysis (HCC) CBC W/PLT COUNT & AUTO Routine 03/14/2019 Alcohol ic cirrhosis of DIFFERENTIAL 10:32 AM GUIDE FOREIGN TOUR liver without ascit es (HCC) PROTHROMBIN TIME/INR Routine 03/14/2019 Alcoholic cirrhosis of 10:32 AM GUIDE [employer]EIGN TOUR liver without ascites (HCC) CBC W/PLT COUNT & AUTO Routine 03/14/2019 Alcohol ic cirrhosis of DIFFERENTIAL 10:32 AM GUIDE [employer]EIGN TOUR liver without ascit es (HCC) HEPATIC FUNCTION PANEL Routine 03/14/2019 Alcohol ic cirrhosis of 10:32 AM GUIDE [employer]EIGN TOUR liver without ascites (HCC) BASIC METABOLIC PANEL (7) Routine 03/14/2019 Alco holic cirrhosis of 10:32 AM GUIDE [employer]EIGN TOUR liver without ascites (HCC) CBC W/PLT COUNT & AUTO Routine 03/04/2019 Iron de ficiency anemia, DIFFERENTIAL 10:00 AM GUIDE FOREIGN TOUR unspecified iron deficiency anemia type COMPREHENSIVE METABOLIC Routine 03/04/2019 Alcoho lic cirrhosis of PANEL 10:00 AM GUIDE [employer]EIGN TOUR liver with ascites (HCC) CBC W/PLT COUNT & AUTO Routine 03/04/2019 Iron de ficiency anemia, DIFFERENTIAL 10:00 AM GUIDE [employer]EIGN TOUR unspecified iron deficiency anemia type BILIRUBIN, DIRECT Routine 03/04/2019 Alcoholic ci rrhosis of 10:00 AM GUIDE [employer]EIGN TOUR liver with ascites (HCC) PROTHROMBIN TIME/INR Routine 03/04/2019 Alcoholic cirrhosis of 9:55 AM GUIDE [employer]EIGN TOUR liver with ascites (HCC) COMPREHENSIVE METABOLIC Routine 02/03/2019 Fatty liver PANEL 10:13 AM GUIDE [employer]EIGN TOUR BILIRUBIN, DIRECT Routine 02/03/2019 Fatty liver 10:13 AM GUIDE [employer]EIGN TOUR CBC W/PLT COUNT & AUTO Routine 02/03/2019 ESRD (e nd stage renal DIFFERENTIAL 10:12 AM GUIDE FOREIGN TOUR disease) (HCC) Acute blood loss anemia PROTHROMBIN TIME/INR Routine 02/03/2019 Fatty maru er 10:12 AM GUIDE [employer]EIGN TOUR CBC W/PLT COUNT & AUTO Routine 02/03/2019 ESRD (e nd stage renal DIFFERENTIAL 10:12 AM GUIDE [employer]EIGN TOUR disease) (HCC) Acute blood loss anemia US PELVIS WITH DOPPLER Routine 02/03/2019 ESRD (e nd stage renal 9:35 AM GUIDE [employer]EIGN TOUR disease) (HCC) Pre-transplant evaluation for end stage renal disease RHYTHM STRIP - SCAN 01/21/2019 11:42 AM GUIDE [employer]EIGN TOUR RHYTHM STRIP - SCAN 01/20/2019 4:02 PM GUIDE [employer]EIGN TOUR RHYTHM STRIP - SCAN 01/20/2019 4:02 PM GUIDE FOREIGN TOUR TRANSFUSION SERVICE 01/19/2019 REPORT - SCAN 6:00 PM GUIDE FOREIGN TOUR PREPARE LEUKO-REDUCED RBC Routine 01/18/2019 11:55 PM GUIDE [employer]EIGN TOUR TRANSFUSION SERVICE 01/18/2019 REPORT - SCAN 6:03 PM GUIDE FOREIGN TOUR VITAMIN B12 AND FOLATE Routine 01/18/2019 5:47 PM GUIDE [employer]EIGN TOUR HAPTOGLOBIN Routine 01/18/2019 5:47 PM GUIDE FOREIGN TOUR LACTATE DEHYDROGENASE Routine 01/18/2019 (LDH) 5:47 PM GUIDE FOREIGN TOUR IRON, TIBC, % SAT. Routine 01/18/2019 (WITHOUT FERRITIN) 5:47 PM GUIDE FOREIGN TOUR FERRITIN Routine 01/18/2019 5:47 PM GUIDE FOREIGN TOUR ULTRAFILTRATION HD CRRT Routine 01/18/2019 3:13 PM GUIDE FOREIGN TOUR HEMOGLOBIN AND HEMATOCRIT STAT 01/18/2019 11:17 AM GUIDE FOREIGN TOUR CBC (HEMOGRAM ONLY) Routine 01/18/2019 2:51 AM GUIDE [employer]EIGN TOUR TRANSFUSE LEUKO-REDUCED Routine 01/17/2019 RED BLOOD CELLS 11:33 PM GUIDE FOREIGN TOUR TRANSFUSE LEUKO-REDUCED Routine 01/17/2019 RED BLOOD CELLS 10:39 PM GUIDE FOREIGN TOUR HEMODIALYSIS INPATIENT Routine 01/17/2019 9:29 PM GUIDE FOREIGN TOUR TYPE AND SCREEN, Routine 01/17/2019 AUTOMATED 3:35 PM GUIDE [employer]EIGN TOUR CBC W/PLT COUNT & AUTO Routine 01/16/2019 Alcohol ic cirrhosis of DIFFERENTIAL 3:56 PM GUIDE FOREIGN TOUR liver without ascit es (HCC) AB SPECIFICITY CLASS I Routine 01/16/2019 ESRD (e nd stage renal 3:56 PM GUIDE FOREIGN TOUR disease) (HCC) Pre-transplant evaluation for end stage renal disease ALPHA FETOPROTEIN (AFP), Routine 01/16/2019 Alcoh olic cirrhosis of TUMOR MARKER 3:56 PM GUIDE [employer]EIGN TOUR liver without ascit es (HCC) PROTHROMBIN TIME/INR Routine 01/16/2019 Alcoholic cirrhosis of 3:56 PM GUIDE [employer]EIGN TOUR liver without ascites (HCC) CBC W/PLT COUNT & AUTO Routine 01/16/2019 Alcohol ic cirrhosis of DIFFERENTIAL 3:56 PM GUIDE [employer]EIGN TOUR liver without ascit es (HCC) HEPATIC FUNCTION PANEL Routine 01/16/2019 Alcohol ic cirrhosis of 3:56 PM GUIDE [employer]EIGN TOUR liver without ascites (HCC) BASIC METABOLIC PANEL (7) Routine 01/16/2019 Alco holic cirrhosis of 3:56 PM GUIDE [employer]EIGN TOUR liver without ascites (HCC) FLOW PRA CLASS II WITH Routine 01/16/2019 ESRD (e nd stage renal REFLEX TO ANTIBODY 3:56 PM GUIDE [employer]EIGN TOUR disease) (HCC) SPECIFICITY Pre-transplant evaluation for end stage renal disease FLOW PRA CLASS I WITH Routine 01/16/2019 ESRD (en d stage renal REFLEX TO ANTIBODY 3:56 PM GUIDE [employer]EIGN TOUR disease) (HCC) SPECIFICITY Pre-transplant evaluation for end stage renal disease HLA TYPING CII Routine 01/16/2019 ESRD (end stage renal 3:56 PM GUIDE [employer]EIGN TOUR disease) (HCC) Pre-transplant evaluation for end stage renal disease HLA TYPING CI Routine 01/16/2019 ESRD (end stage renal 3:56 PM GUIDE [employer]EIGN TOUR disease) (HCC) Pre-transplant evaluation for end stage renal disease RHYTHM STRIP - SCAN 01/08/2019 9:10 AM GUIDE FOREIGN TOUR TRANSFUSION SERVICE 01/06/2019 REPORT - SCAN 5:50 PM GUIDE FOREIGN TOUR HEPATIC FUNCTION PANEL Routine 01/06/2019 6:01 AM GUIDE FOREIGN TOUR PROTHROMBIN TIME/INR Routine 01/06/2019 6:01 AM GUIDE FOREIGN TOUR MAGNESIUM Routine 01/06/2019 6:01 AM GUIDE FOREIGN TOUR BASIC METABOLIC PANEL (7) Routine 01/06/2019 6:01 AM GUIDE FOREIGN TOUR CBC (HEMOGRAM ONLY) Routine 01/06/2019 6:01 AM GUIDE FOREIGN TOUR MISCELLANEOUS LAB ORDER Routine 01/06/2019 6:01 AM GUIDE FOREIGN TOUR PREPARE LEUKO-REDUCED RBC Routine 01/05/2019 11:54 PM GUIDE FOREIGN TOUR TRANSFUSION SERVICE 01/05/2019 REPORT - SCAN 5:50 PM GUIDE FOREIGN TOUR PROTHROMBIN TIME/INR Routine 01/05/2019 4:30 AM GUIDE FOREIGN TOUR HEPATIC FUNCTION PANEL Routine 01/05/2019 4:30 AM GUIDE FOREIGN TOUR MAGNESIUM Routine 01/05/2019 4:30 AM GUIDE FOREIGN TOUR BASIC METABOLIC PANEL (7) Routine 01/05/2019 4:30 AM GUIDE FOREIGN TOUR CBC (HEMOGRAM ONLY) Routine 01/05/2019 4:30 AM GUIDE FOREIGN TOUR PREPARE LEUKO-REDUCED RBC STAT 01/04/2019 11:54 PM GUIDE FOREIGN TOUR TRANSFUSION SERVICE 01/04/2019 REPORT - SCAN 5:53 PM GUIDE FOREIGN TOUR DRUG SCREEN, URINE, Routine 01/04/2019 TRANSPLANT 5:39 PM GUIDE [employer]EIGN TOUR DRUG SCREEN, URINE, Routine 01/04/2019 COMPREHENSIVE 5:39 PM GUIDE FOREIGN TOUR TRANSFUSE LEUKO-REDUCED Routine 01/04/2019 RED BLOOD CELLS 2:09 PM GUIDE FOREIGN TOUR ETHANOL Routine 01/04/2019 9:42 AM GUIDE FOREIGN TOUR CBC W/PLT COUNT & AUTO Routine 01/04/2019 DIFFERENTIAL 4:07 AM GUIDE FOREIGN TOUR CBC W/PLT COUNT & AUTO Routine 01/04/2019 DIFFERENTIAL 4:07 AM GUIDE FOREIGN TOUR HEPATIC FUNCTION PANEL Routine 01/04/2019 4:07 AM GUIDE FOREIGN TOUR BASIC METABOLIC PANEL (7) Routine 01/04/2019 4:07 AM GUIDE FOREIGN TOUR TRANSFUSE LEUKO-REDUCED STAT 01/04/2019 RED BLOOD CELLS 1:55 AM GUIDE FOREIGN TOUR TYPE AND SCREEN, STAT 01/03/2019 AUTOMATED 9:56 PM GUIDE FOREIGN TOUR CBC W/PLT COUNT & AUTO STAT 01/03/2019 DIFFERENTIAL 9:54 PM GUIDE FOREIGN TOUR PT/APTT STAT 01/03/2019 9:54 PM GUIDE FOREIGN TOUR HEPATIC FUNCTION PANEL STAT 01/03/2019 9:54 PM GUIDE FOREIGN TOUR BASIC METABOLIC PANEL (7) STAT 01/03/2019 9:54 PM GUIDE FOREIGN TOUR CBC W/PLT COUNT & AUTO STAT 01/03/2019 DIFFERENTIAL 9:54 PM GUIDE FOREIGN TOUR REPORT OF PROCEDURE - 12/31/2018 ENDOSCOPY SCAN 12:52 PM GUIDE FOREIGN TOUR TRANSFUSION SERVICE 12/27/2018 REPORT - SCAN 6:02 [...] ms QTC Calculatio n(Bazett) 541 ms P Kent 40 degrees R Kent 30 degrees T Kent 14 degrees Normal sinus rhythm Prolonged QT [...] FUNCTION PANEL Routine 10/31/2018 4:19 AM CDT after 10/31/2018 Results * MR abdomen with/without IV contrast (05/23/2019 12:08 PM CDT) Only the most recent of 2 results within the time period is included. Specimen Narrative Performed At FINAL REPORT [facility] MRI of the abdomen with and [...] Report Verified Date/Time: 0 12:54:18 Reading Location: [address] Reading Room Procedure Note Interface, External [...] Report Verified Date/Time: 05/23/2019 12:54:18 Reading Location: [facility] B1 [id number] Ortho Consult Reading Room Performing Organization Address City/State/Zipcode Ph one Number GE RIS * CBC with platelet count + automated diff (05/23/2019 9:03 AM CDT) Only the most recent of 39 results within the time period is included. WBC 7.3 3.5 - 10.5 K/L [facility] RBC 2.33 (L) 4.63 - 6.08 M/L [facility] Hemoglobin 7.3 (L) 13.7 - 17.5 GM/DL [facility] Hematocrit 22.0 (L) 40.1 - 51.0 % [facility] MCV 94.4 (H) 79.0 - 92.2 fL [facility] MCH 31.3 25.7 - 32.2 pg [facility] MCHC 33.2 32.3 - 36.5 GM/DL [facility] RDW 18.6 (H) 11.6 - 14.4 % [facility] Platelets 94 (L) 150 - 450 K/CU MM [facility] MPV 8.4 (L) 9.4 - 12.4 fL [facility] nRBC 0 0 - 0 /[address] [facility] % Neutros 69 % [facility] % Lymphs 18 % [facility] % Monos 9 % [facility] % Eos 3 % [facility] % Baso 1 % [facility] # Neutros 5.03 1.78 - 5.38 K/L [facility] # Lymphs 1.31 (L) 1.32 - 3.57 K/L [facility] # Monos 0.62 0.30 - 0.82 K/L [facility] # Eos 0.23 0.04 - 0.54 K/L [facility] # Baso 0.06 0.01 - 0.08 K/L [facility] Immature 0 0 - 1 % [facility] Granulocytes-[facility] Specimen Blood Performing Organization Address City/State/Zipcode Ph one Number [place] [address] [facility] [place] * Prothrombin time/INR (05/23/2019 9:03 AM CDT) Only the most recent of 26 results within the time period is included. Protime 16.6 (H) 11.9 - 14.2 seconds [facility] INR 1.4 <=5.9 [facility] Specimen Blood Narrative Performed At Effective 07/24/2018: PT Reference Range Change [facility] New: 11.9-14.2Previous: 11.7-14.7 [facility] MEDICAL CE NTER RECOMMENDED COUMADIN/WARFARIN INR THERA PY RANGES STANDARD DOSE: 2.0-3.0Includes: PRO PHYLAXIS for venous thrombosis, systemic embolization; TREATMENT for venous thro mbosis and/or pulmonary embolus. HIGH RISK: Target INR is 2.5-3.5 for pa tients wiht mechanical heart valves. Performing Organization Address [facility] Ph one Number [place] [address] [facility] * Hepatic function panel (05/23/2019 9:03 AM CDT) Only the most recent of 27 results within the time period is included. Protein, Total 6.5 6.0 - 8.3 gm/dL [facility] Albumin 3.4 (L) 3.5 - 5.0 g/dL [facility] Total Bilirubin 5.4 (H) 0.2 - 1.2 mg/dL [facility] Bilirubin, Direct 2.6 (H) 0.1 - 0.5 mg/dL [facility] Alkaline Phosphatase 200 (H) 40 - 150 U/L [facility] AST 46 (H) 5 - 34 U/L [facility] ALT 12 6 - 55 U/L [facility] Specimen Blood Narrative Performed At Creative Specialist ID - KAVONG [facility] Performing Organization Address City/[facility] Ph one Number [place] [address] [facility] * Basic Metabolic Panel (05/23/2019 9:03 AM CDT) Only the most recent of 32 results within the time period is included. Sodium 139 136 - 145 meq/L [facility] Potassium 3.3 (L) 3.5 - 5.1 meq/L [facility] Chloride 100 98 - 107 meq/L [facility] CO2 30 (H) 22 - 29 meq/L [facility] BUN 25 (H) 7 - 21 mg/dL [facility] Creatinine 2.87 (H) 0.57 - 1.25 mg/dL [facility] Glucose 112 (H) 70 - 105 mg/dL [facility] Calcium 8.5 8.4 - 10.2 mg/dL [facility] EGFR 25Comment: ESTIMATED GFR IS mL/min/1.73 sq m [facility] NOT ACCURATE CREATININE [facility] CLEARANCE IN PREDICTING GLOMERULAR FILTRATION RATE. ESTIMATED GFR IS NOT APPLICABLE FOR DIALYSIS PATIENTS. Specimen Blood Narrative Performed At Creative Specialist ID - KAVONG [facility] Specimen moderately [facility] Performing Organization Address City/[facility] Ph one Number [address] [facility] * RHYTHM STRIP - SCAN (05/15/2019 4:11 [...] is n ot available. Performing Organization Address City/[facility] Ph one Number [facility] [address] [place], [place] * Bilirubin, direct (05/14/2019 9:30 AM CDT) Only the most recent of 4 results within the time period is included. Bilirubin, Direct 2.0 (H) 0.1 - 0.5 mg/dL [facility] Specimen Blood Performing Organization Address City/[facility] Ph one Number [address] [facility] * EKG-SCANNED (05/13/2019 11:03 AM CDT) Only [...] AM CDT) Only the most recent of 14 results within the time period is included. Phosphorus 3.4 2.3 - 4.7 mg/dL [facility] Specimen Blood Narrative Performed At Creative Specialist ID - ULYSSES Jang [facility] Performing Organization Address [facility] one Number [address] [facility] * Magnesium (05/10/2019 5:22 AM CDT) Only the most recent of 17 results within the time period is included. Magnesium 1.9 1.6 - 2.6 mg/dL [facility] Specimen Blood Narrative Performed At Creative Specialist ID - ULYSSES Jang [facility] Performing Organization Address [facility] one [address] [facility] * NM Myocardial Perfusion Pet/CT (Rest & Stress) (05/09/2019 2:55 PM CDT) Specimen Narrative Performed At FINAL REPORT [employer] PROCEDURE: MYOCARDIAL PERFUSION PET HEAVENLY GING (Rest/Stress) CPT CODE: 13177 INDICATION: Assess symptoms/risk factor s of possible [...] Report Verified Date/Time: 0 16:05:35 Reading Location: [place] [id number] Reading Room Procedure Note Interface, External Ris In - 05/09/2019 4:07 PM CDT FINAL REPORT PROCEDURE: MYOCARDIAL PERFUSION PET IMAGING (Rest/Stress) CPT CODE: 64028 INDICATION: Assess symptoms/risk factors of possible CAD [...] Report Verified Date/Time: 05/09/2019 16:05:35 Reading Location: [address] Reading Room Performing Organization Address [facility] Ph one Number GE RIS [...] on 05/15/2019 10:24:47 PM Performing Organization Address [facility] Ph one Number GE MUSE * Comprehensive metabolic panel (05/09/2019 5:35 AM CDT) Only the most recent of 8 results within the time period is included. Protein, Total 6.1Comment: Specimen slightly 6.0 - 8.3 gm/dL [facility] Albumin 2.9 (L)Comment: Specimen 3.5 - 5.0 g/dL [facility] Alkaline Phosphatase 116 40 - 150 U/L [facility] Total Bilirubin 4.1 (H)Comment: Specimen 0.2 - 1.2 mg/dL [facility] hemolyzed [facility] Sodium 131 (L) 136 - 145 meq/L [facility] Potassium 3.9Comment: Specimen slightly 3.5 - 5.1 meq/L [facility] Chloride 99 98 - 107 meq/L [facility] CO2 23 22 - 29 meq/L [facility] BUN 22 (H) 7 - 21 mg/dL [facility] Creatinine 4.22 (H)Comment: Specimen 0.57 - 1.25 mg/dL [facility] hemolyzed [facility] Glucose 108 (H) 70 - 105 mg/dL [facility] Calcium 8.1 (L) 8.4 - 10.2 mg/dL [facility] AST 30Comment: Specimen slightly 5 - 34 U/L [facility] ALT 8Comment: Specimen slightly 6 - 55 U/L [facility] EGFR 16Comment: ESTIMATED GFR IS mL/min/1.73 sq m [facility] NOT ACCURATE CREATININE [facility] CLEARANCE IN PREDICTING GLOMERULAR FILTRATION RATE. ESTIMATED GFR IS NOT APPLICABLE FOR DIALYSIS PATIENTS. Specimen Blood Narrative Performed At Creative Specialist ID - ULYSSES M [facility] Specimen slightly icteric [facility] Performing Organization Address City/State/Zipcode Ph one Number [facility] [address] [place], [place] [address] [facility] * TRANSFUSION SERVICE REPORT - SCAN (05/08/2019 5:52 PM CDT) Only the most recent of 18 results within the time period is included. Narrative Performed At This result has an attachment that is n ot available. * Limited 2D Echocardiogram (05/08/2019 11:40 AM CDT) Ejection Fraction [facility] ECHO [facility]ART[facility] Specimen Narrative Performed At Transthoracic Echocardiography Report (TTE) [facility] E[facility] O [facility]ART[facility] Demographics [facility] Patient Name INDRA GALVAN Date of Study 05/08/2019 YAN CORDERO [id number] Gender Male Visit Number [id number] Unknown [id number] Room Number 6213 Number Date of Birth1980 Referring Physician ROBBIE NEW Age38 year(s)Sonograp her Lawson Marleni AnalystAlex Zamirian InterpretingBetty Williamson MD Procedure Type [...] (>60%) . Left AtriumLA s ize is mota-me-teazosnczm enlarged . Right VentricleNormal r ight ventricle [...] 05/08/2019 YAN CORDERO Gender Male Visit Number [id number] Race Unknown Room Number 6213 Number Date of 1980 Referring Physician ROBBIE NEW Age 38 year(s) Retirement Consultant Renny Yepez Millstone Cleaner Nick Navarro Interpreting Physician MELVA Jackson Procedure [...] (>60%) . Left Atrium LA size is oega-rt-cqpdudyvgv enlarged . Right Ventricle Normal right ventricle [...] Performing Organization Address City/State/Zipcode Ph one Number [facility] * Procalcitonin (05/08/2019 3:02 AM CDT) Only the most recent of 3 results within the time period is included. Procalcitonin 3.64 (H) <0.05 ng/mL [facility] Specimen Blood Narrative Performed At SEPSIS RISK (ng/mL) [facility] Low:0.05-0.50 [facility] Intermediate: 0.51-2.00 High: >=2.01 Performing Organization Address City/State/Zipcode Ph one Number [facility] [address] [place], [place] [address] [facility] * Manual Differential (05/08/2019 3:02 AM CDT) Only the most recent of 8 results within the time period is included. % Neutros 74 % [facility] % Lymphs 12 % [facility] % Monos 9 % [facility] % Eos 2 % [facility] % Baso 3 % [facility] # Neutros 8.66 (H) 1.78 - 5.38 K/ul [facility] # Lymphs 1.40 1.32 - 3.57 K/ul [facility] # Monos 1.05 (H) 0.30 - 0.82 K/uL [facility] # Eos 0.23 0.04 - 0.54 K/uL [facility] # Baso 0.35 (H) 0.01 - 0.08 K/uL [facility] Total Counted 100 [facility] Platelet Morphology Normal [facility] Toxic Granulation Present [facility] Polychromasia 2+ moderate [facility] Hypochromia 1+ few [facility] Anisocytosis 1+ few [facility] Macrocytes 1+ few [facility] Poikilocytes 1+ few [facility] All Cells 1+ few [facility] Artifact Present [facility] Platelet Conc Adequate [facility] Specimen Blood Narrative Performed At Creative Specialist ID - Ivonne Marina [facility] User comments: [facility] Slide comments: Performing Organization Address [facility] Ph one Number [facility] [address] [place], [place] [address] [facility] * Prepare Leuko-Red RBC (05/07/2019 11:54 PM CDT) Only the most recent of 10 results within the time period is included. CROSSMATCH COMPATIBLE [employer] [place] Unit ABO B Pos [employer] [place] UNIT NUMBER [id number] [place] Status TX_TIMEINCHART [employer] [place] Blood Bank Product RED BLOOD CELLS [employer] [place] PRODUCT CODE [id number] [place] Specimen Other Performing Organization Address [facility] Ph one Number [employer] [place] * PERIPHERAL VASCULAR REPORT - SCAN (05/07/2019 9:12 PM CDT) Only the most recent of 2 results within the time period is included. Narrative Performed At This result has an attachment that is n ot available. * Body fluid culture + gram stain (05/07/2019 7:20 PM CDT) Result No growth [facility] Gram Stain Result 1+ White blood cells seen [facility] Gram Stain Result No organisms seen [facility] Specimen Body Fluid Performing Organization Address [facility] one Number [facility] [address] [place] [address] [address] [facility] * Cytology (05/07/2019 7:20 PM CDT) Case Report Medical Cytology [facility] Report [facility] Case: [id number] Authorizing Provider:Robbie New MD Collected: 05/07/2019 1920 Ordering Location: [place] [address] CCUReceived: 05/08/19 20 6675 Pathologist: Josh Yang MD Specimen:Pericardial DIAGNOSIS PERICARDIAL FLUID (CYTOSPINS): [facility] - NEGATIVE FOR MALIGNANCY [facility] Signing Pathologist Direct Phone Line: [phone] CPT Code(s) 67504 [facility] CLINICAL DATA Pericardial effusion, [facility] EALTH cirrhosis [facility] SPECIMEN SOURCE PERICARDIAL FLUID [facility] GROSS DESCRIPTION 600 mls bloody fluid; 4 [facility] [address]osp[address] [facility] Collected: [id number] Received: [id number] STATEMENT OF ADEQUACY Satisfactory [facility] ALTH [facility] Gross assessment was [facility] performed at [place] D, Department of [facility] TER Pathology, [address] [place] [address], Technical component was [facility] performed at [place], Department of [facility] TER Pathology, [address] [place] [address], Professional component [facility] was performed at [place], Department of [facility]ASWANT TER Pathology, [address] [place] [address], Specimen Body Fluid Narrative Performed At This result has an attachment that is n ot available. Performing Organization Address City/State/Zipcode Ph one Number [address] 7700 MED[facility] CENTER * 2D Echo W/Doppler(CW/PW/Color) (05/07/2019 6:32 PM CDT) Ejection Fraction [facility] ECHO HEARTLAB [facility] Specimen Narrative Performed At Transthoracic Echocardiography Report (TTE) [facility] ECH O HEARTLAB Demographics [facility] Patient Name INDRA GALVAN Date of Study05/07/2019 YAN SONFredy [id number] Gender Male Visit Number [id number] Unknown [id number] Room [id number] Number Date of Birth1980 Barron New MD Phys laura Age38 year(s)Sonogrriki Jerez Inte rpreting Betty JacksonMD Fellow Indra zamora MD Procedure Type of [...] 05/07/2019 YAN CORDERO Gender Male Visit Number [id number] Race Unknown Room Number 6213 Number Date of 1980 Referring Robbie New MD Physician Age 38 year(s) Retirement Consultant Aneudy Jerez Interpreting Vic Caruso Physician Fellow [...] pericardial effusion is present. Performing Organization Address City/State[facility] Ph one Number [facility] * Carotid doppler bilateral (05/06/2019 4:05 PM CDT) Ejection Fraction [facility] ECHO HEARTLAB [facility] Specimen Impressions Performed At Right Impression [facility] 1. The internal carotid artery is within normal limit s. [facility] 2. The external carotid artery [...] At PV LAB - Carotid Duplex Study [facility] ECHO HEART[facility] Demographics [facility] Patient Name INDRA GALVAN Date of Study05/06/2019 RUSS VEE JR. [id number] Age38 Visit Number [id number] Gender Male Accession Number [id number] Date of Birth1980 Merrill Acevedo Room [id number] PhysicianAGACNP SonographerGzay Maki RVS Interpreting Josh Meeks Procedure Type of Study: Cerebral: Carotid, CAROTID DOPPLER, HAKEEM ATERAL. Indications for Study:Pre transplant ev aluation. [...] 05/06/2019 YAN CORDERO Age 38 Visit Number [id number] Gender Male Accession Number [id number] Date of 1980 Referring Karen Carranza Room Number 6213 Physician SARAH Retirement Consultant Cb Maki RVS Interpreting Karen Blackwell, Physician Procedure Type of [...] Performing Organization Address City/State/Zipcode Ph one Number [facility] ECHO HEARTBeijing [employer] [facility] * REPORT OF PROCEDURE - ENDOSCOPY URL (05/06/2019 1:43 PM CDT) Narrative Performed At This result has an attachment that is n ot available. 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 one Number [facility] ECHO HEARTLAB [facility] CPACS * Transfuse Leuko-Red RBC (05/06/2019 3:24 AM CDT) Only the most recent of 23 results within the time period is included. * Troponin I (05/05/2019 9:09 PM CDT) Only the most recent of 3 results within the time period is included. Troponin I <0.01 0.00 - 0.03 ng/mL [facility] Specimen Blood Narrative Performed At Troponin I (TnI) levels must be interpreted in the co ntext of the presenting [facility] symptoms and the clinical findings. Elevated TnI leve ls indicate myocardial [facility] damage, but are not specific for ischem ic heart disease. Elevated TnI levels are seen in patients with other cardiac con ditions (including myocarditis and congestive heart failure), and slight T nI elevations occur in patients with other conditions, including sepsis, tay al failure, acidosis, acute neurological disease, and persistent tachyarrhythmia . Creative Specialist ID - BS Performing Organization Address [facility] one Number [place] [address] [facility] * ECG 12 lead (05/05/2019 8:53 PM CDT) Only the most recent of 5 results within the time period is included. Specimen Narrative Performed At Ventricular Rate 128 BPM GE MUSE Atrial Rate 89 BPM QRS Duration 94 ms Q-T Interval 336 ms QTC Calculation(Bazett) 490 ms R Kent 151 degrees T Kent -88 degrees Atrial fibrillation Left posterior fascicular [...] abnormality in Anterolateral leads Confirmed by MD YORK JOSEPH P ([id number]) on 05/06/2019 6:34:11 AM Procedure Note Interface, External Ris In - 05/06/2019 6:34 AM CDT Ventricular Rate 128 BPM Atrial Rate 89 BPM QRS Duration 94 ms Q-T Interval 336 ms QTC Calculation(Bazett) 490 ms R Kent 151 degrees T Kent -88 degrees Atrial fibrillation Left posterior fascicular block ST & T wave abnormality, consider inferior ischemia ST & T wave abnormality, consider anterolateral ischemia Abnormal ECG When compared with ECG of 05-MAY-2019 20:52, Atrial fibrillation Present Inverted T waves have replaced nonspecific T wave abnormality in Inferior leads Inverted T waves have replaced nonspecific T wave abnormality in Anterolateral leads Confirmed by MD YORK JOSEPH P ([id number]) on 05/06/2019 6:34:11 AM Performing Organization Address [facility] Ph one Number GE MUSE * Hepatitis B surface antigen (05/05/2019 3:02 PM CDT) Only the most recent of 3 results within the time period is included. HBsAg Screen Nonreactive Nonreactive [facility] Specimen Blood Narrative Performed At Creative Specialist ID - BS [facility] Performing Organization Address [facility] Ph one Number [address] [facility] * Occult blood, stool (05/05/2019 12:07 PM CDT) Occult blood Negative Negative [facility] Specimen Stool Performing Organization Address [facility] one [place] [address] [place] [address] * ABORH, manual (05/05/2019 9:51 AM CDT) ABO Grouping B [facility] Rh Factor POS [facility] Specimen Blood Performing Organization Address [facility] one [address] [address] [facility] * Iron, TIBC, % sat. (without ferritin) (05/05/2019 9:51 AM CDT) Only the most recent of 2 results within the time period is included. Iron 88.0 40.0 - 160.0 ug/dL [facility] TIBC 130 (L) 250 - 450 ug/dL [facility] Iron % Saturation 68 (H) 20 - 55 % [facility] Specimen Blood Narrative Performed At Creative Specialist ID - PIAYA L [facility] Performing Organization Address [facility] one [place] [address] [phone] [place] [address] * Reticulocyte count (05/05/2019 9:51 AM CDT) % Retic 2.3 (H) 0.5 - 1.8 % [facility] Specimen Blood Narrative Performed At Creative Specialist ID - [id number] [facility] Performing Organization Address [facility] one [place] [address] [address] [phone] [place] [address] * Direct AHG (LUMA)/Direct Antonia (05/05/2019 9:51 AM CDT) Direct AHG-IGG NEGATIVE [facility] Direct AHG-C3B, C3D NEGATVIE [facility] Specimen Blood Performing Organization Address City/[facility]/Zipcode Ph one [address] * Ferritin (05/05/2019 9:51 AM CDT) Only the most recent of 2 results within the time period is included. Ferritin 1,081 (H) 5 - 275 ng/mL [facility] Specimen Blood Narrative Performed At Creative Specialist ID - AAHAMID [facility] Performing Organization Address City/[facility] Ph one [address] * Lactic acid, venous (05/05/2019 12:29 AM CDT) Only the most recent of 3 results within the time period is included. Lactate, Venous 2.6 (H) 0.5 - 2.2 mmol/L [facility] Specimen Blood Narrative Performed At Creative Specialist ID - PIAYA L [facility] Specimen slightly icteric [facility] Performing Organization Address [facility] one [address] * Type and screen, automated ([facility] and CECs only) (05/04/2019 8:42 PM CDT) Only the most recent of 7 results within the time period is included. ABO/RH AUTOMATED (BEAKER) B POSITIVE [facility] Ab Scrn NEGATIVE [facility] Specimen Blood Performing Organization Address City/[facility] Ph one [address] * Urinalysis w/Microscopic + Reflex to Culture (05/04/2019 7:53 PM CDT) Only the most recent of 3 results within the time period is included. Color, UA Yellow [facility] Clarity, UA Hazy [facility] Specific [place], UA 1.011 1.001 - 1.035 [facility] pH, UA 5.5 5.0 - 8.0 [facility] Protein, UA 100 mg/dL (A) Negative [facility] Glucose, UA 100 mg/dL (A) Negative [facility] Ketones, UA Negative Negative [facility] Bilirubin, UA Negative Negative [facility] Blood, UA Negative Negative [facility] Nitrite, UA Negative Negative [facility] Leukocytes, UA Negative Negative [facility] Urobilinogen, UA 0.2 0.2 - 1.0 mg/dL [facility] RBC, UA 7 /HPF [facility] WBC, UA 12 /HPF [facility] Bacteria, UA Occasional [facility] Mucus Rare [facility] Squam Epithel, UA 18 /HPF [facility] Hyaline Casts, UA 78 /LPF [facility] Casts 70 /LPF [facility] Crystals, Urine Occasional [facility] Yeast Moderate [facility] Specimen Source [facility] Specimen Urine Narrative Performed At Creative Specialist ID - [auto] [facility] Creative Specialist ID - [facility] Performing Organization Address City/State/Zipcode Ph one Number [facility] [address] [facility] [place] [address] MED[facility] CENTER * Strep pneumoniae antigen (05/04/2019 7:53 PM CDT) Strep pneumoniae Antigen Presumptive negative for Presumptive negative for [facility] pneumococcal pneumonia - see pneumococcal pneumonia - [facility] comment see comment, Presumptive negative for pneumococcal meningitis - see comment Specimen Urine Narrative Performed At Presumptive negative for pneumococcal p neumonia, suggesting no current or recent [facility] pneumococcal infection. Infection due t o S. pneumoniae cannot be ruled out since [facility] the antigen present in the sample may b e below the detection limit of the test. Performing Organization Address City/[facility] Ph one Number [place] [address] [address] [phone] [place] [address] * Legionella antigen, urine (05/04/2019 7:53 PM CDT) Legionella Urine Antigen Negative - see commentComment: [facility] Negative for L. pneumophila [facility] serogroup 1 antigen, suggesting no recent or current infection with this serogroup. Legionellosis cannot be ruled out since other serogroups and species may cause disease. Specimen Urine Performing Organization Address [facility] Ph one Number [place] [address] [address] [phone] [place] [address] * Urine culture (05/04/2019 7:53 PM CDT) Only the most recent of 2 results within the time period is included. Result <10,000 col/mL skin chase [facility] Specimen Urine Performing Organization Address [facility] Ph one Number [place] [address] [address] [phone] [place] [address] * PT/aPTT (05/04/2019 7:29 PM CDT) Only the most recent of 4 results within the time period is included. Protime 18.9 (H) 11.9 - 14.2 seconds [facility] INR 1.6 <=5.9 [facility] PTT 40.7 (H) 22.5 - 36.[address] [facility] Specimen Blood Narrative Performed At Effective 07/24/2018: PT Reference Range Change [facility] New: 11.9-14.2Previous: 11.7-14.7 [facility] MEDICAL CE NTER RECOMMENDED COUMADIN/WARFARIN INR THERA PY RANGES STANDARD DOSE: 2.0-3.0Includes: PRO PHYLAXIS for venous thrombosis, systemic embolization; TREATMENT for venous thro mbosis and/or pulmonary embolus. HIGH RISK: Target INR is 2.5-3.5 for pa tients wiht mechanical heart valves. Performing Organization Address [facility] one [address] [facility] * Blood Culture - Routine (Left Venipuncture) (05/04/2019 7:29 PM CDT) Only the most recent of 10 results within the time period is included. Result No growth in 5 days [facility] Specimen Blood Performing Organization Address [facility] one [address] [facility] * B-type Natriuretic Factor (BNP) (05/04/2019 7:29 PM CDT) BNP 612 (H) 0 - 100 pg/mL [facility] Specimen Blood Narrative Performed At Creative Specialist ID - DB [facility] Performing Organization Address [facility] one [address] [facility] * Rapid Influenza A&B Screen (05/04/2019 7:28 PM CDT) Rapid Influenza A Antigen Negative Negative, Inconclusi ve [facility] Rapid influenza B Antigen Negative Negative, Inconclusi ve [facility] Specimen Nasal Performing Organization Address [facility] one [address] [facility] * CRITICAL CARE (05/04/2019 6:47 PM CDT) [...] Report Verified Date/Time: 0 18:08:08 Reading Location: [facility] C013T Transiti onal Reading Room Procedure [...] Report Verified Date/Time: 05/04/2019 18:08:08 Reading Location: [facility] C013T Transitional Reading Room Performing Organization Address City/[facility] Ph one Number GE RIS * US pelvis with doppler (02/03/2019 9:35 AM GUIDE FOREIGN TOUR) Specimen Narrative Performed At FINAL REPORT GE [...] artery measures 1.0 cm. The left internal wholesaler al iliac artery is not visualized. The bilateral common and external iliac veins are patent. IMPRESSION: Unremarkable pelvic vascula ture. Signed: Keith Garcia MD Report Verified Date/Time: 11:35:01 Reading Location: [address] Radiolo gy Reading Room Procedure Note Interface, External Ris In - 02/03/2019 11:37 AM GUIDE FOREIGN TOUR FINAL REPORT Pelvic ultrasound dated 02/03/2019. COMMENT: [...] Report Verified Date/Time: 02/03/2019 11:35:01 Reading Location: [address] Radiology Reading Room Performing Organization Address [facility] Ph one Number GE RIS * Vitamin B12 and Folate (01/18/2019 5:47 PM GUIDE FOREIGN TOUR) Vitamin B12 1,988 (H) 213 - 816 pg/mL [facility] Folate 17.8 >=7.0 ng/mL [facility] Specimen Blood Performing Organization Address [facility] one Number [place] [address] [facility] * Lactate dehydrogenase (LDH) (01/18/2019 5:47 PM GUIDE FOREIGN TOUR) Only the most recent of 2 results within the time period is included. LDH 192 125 - 220 U/L [facility] Specimen Blood Performing Organization Address [facility] one Number [place] [address] [facility] * Haptoglobin (01/18/2019 5:47 PM GUIDE FOREIGN TOUR) Only the most recent of 2 results within the time period is included. Haptoglobin 14 14 - 258 mg/dL [facility] Specimen Blood Performing Organization Address [facility] one Number [place] [address] [address] [phone] [place] [address] * Hemoglobin and hematocrit (01/18/2019 11:17 AM GUIDE FOREIGN TOUR) Only the most recent of 3 results within the time period is included. Hemoglobin 7.5 (L) 13.7 - 17.5 GM/DL [facility] Hematocrit 23.0 (L) 40.1 - 51.0 % [facility] Specimen Blood Performing Organization Address [facility] one Number [place] [address] [facility] * CBC (Hemogram only) (01/18/2019 2:51 AM GUIDE FOREIGN TOUR) Only the most recent of 5 results within the time period is included. WBC 6.6 3.5 - 10.5 K/L [facility] RBC 2.11 (L) 4.63 - 6.08 M/L [facility] Hemoglobin 6.7 (L) 13.7 - 17.5 GM/DL [facility] Hematocrit 20.2 (L) 40.1 - 51.0 % [facility] MCV 95.7 (H) 79.0 - 92.2 fL [facility] MCH 31.8 25.7 - 32.2 pg [facility] MCHC 33.2 32.3 - 36.5 GM/DL [facility] RDW 17.3 (H) 11.6 - 14.4 % [facility] Platelets 74 (L) 150 - 450 K/CU MM [facility] MPV 10.1 9.4 - 12.4 fL [facility] nRBC 0 0 - 0 /100 WBC [facility] Specimen Blood Performing Organization Address City/State/[facility] Ph one Number [facility] [address] [place] [address] [address] [facility] * HLA TYPING CII (01/16/2019 3:56 PM GUIDE FOREIGN TOUR) [facility]-DR AG1 15 [facility] HLA-DR AG2 4 [facility] HLA-DR AG4-2 53 [facility] HLA-DR AG5-1 51 [facility] HLA-DQA1 AG 1-1 01 [facility] HLA-DQA1 AG 1-2 03 [facility] HLA-DQB1 AG 1-1 6 [facility] HLA-DQB1 AG 1-2 8 [facility] HLA-DPA1 AG 1-1 01 [facility] HLA-DPA1 AG 1-2 01 [facility] HLA-DPB1 AG 1-1 02:01 [facility] HLA-DPB1 AG 1-2 04:02 [facility] Specimen Blood Narrative Performed At Disclaimer: [facility] This test was developed and its perform ance characteristics determined by the [facility] [...] complexity clinical laboratory testing. Performing Organization Address [facility] one Number [facility] ONE [facility] Yovany, MS: [id number], [place] [address] CLIA#[id number] CAP#[id number] UNOS#[id number] * HLA TYPING CI (01/16/2019 3:56 PM GUIDE FOREIGN TOUR) HLA-A AG1 3 [facility] HLA-A AG2 68 [facility] HLA-B AG1 7 [facility] HLA-B AG2 35 [facility] HLA-C AG1 7 [facility] HLA-C AG2 7 [facility] HLA-B BW1 6 [facility] HLA-B BW2 6 [facility] Specimen Blood Narrative Performed At Disclaimer: [facility] This test was developed and its perform ance characteristics determined by the [facility] [...] complexity clinical laboratory testing. Performing Organization Address [facility] one Number [facility] ONE [facility] Yovany, MS: [id number], [place] [address] CLIA#[id number] CAP#[id number] UNOS#[id number] * FLOW PRA CLASS II WITH REFLEX TO ANTIBODY SPECIFICITY (01/16/2019 3:56 PM GUIDE FOREIGN TOUR) Flow Class II Percent 0 [facility] NG Positive Specimen Blood Narrative Performed At Disclaimer: [facility] This test was developed and its perform ance characteristics determined by the [facility] [...] complexity clinical laboratory testing. Performing Organization Address [facility] one Number [facility] HLA TEST[facility] ONE Gregorio Pedroza, MS: [id number], [place] [address] CLIA#[id number] CAP#[id number] UNOS#[id number] * FLOW PRA CLASS I WITH REFLEX TO ANTIBODY SPECIFICITY (01/16/2019 3:56 PM GUIDE FOREIGN TOUR) Flow Class I Percent 20 [facility] TEST[facility] G Positive Specimen Blood Narrative Performed At Disclaimer: [facility] TEST[facility] This test was developed and its perform ance characteristics determined by the [facility] [...] complexity clinical laboratory testing. Performing Organization Address [facility] one Number [facility] HLA TEST[facility] ONE Gregorio Pedroza, MS: [id number], [place] [address] CLIA#[id number] CAP#[id number] UNOS#[id number] * AB SPECIFICITY CLASS I (01/16/2019 3:56 PM GUIDE FOREIGN TOUR) AB Specificity Class I NO CLASS I ANTIBODY DETECTED [facility] HLA TESTING WITH MFIs > 4000 Specimen Blood Narrative Performed At Disclaimer: [facility] This test was developed and its perform ance characteristics determined by the [facility] [...] complexity clinical laboratory testing. Performing Organization Address [facility] Ph one Number [facility] TEST[facility] ONE [facility] Yovany, MS: [id number], [place] [address] CLIA#[id number] CAP#[id number] UNOS#[id number] * Alpha fetoprotein (AFP), tumor marker (01/16/2019 3:56 PM GUIDE FOREIGN TOUR) Alpha-Fetoprotein 2.7 <10.0 ng/mL [facility] Specimen Blood Performing Organization Address [facility] one Number [address] [facility] * Drug screen, urine, transplant (01/04/2019 5:39 PM GUIDE FOREIGN TOUR) Specimen Urine Narrative Performed At This result has an attachment that is n ot available. Performing Organization Address [facility] one Number [facility] [address] [phone] * Drug screen, urine, comprehensive (01/04/2019 5:39 PM GUIDE FOREIGN TOUR) Specimen Urine Narrative Performed At This result has an attachment that is n ot available. * Ethanol (01/04/2019 9:42 AM GUIDE FOREIGN TOUR) Ethanol Lvl <10 <=10 mg/dL [facility] Specimen Blood Performing Organization Address [facility] one Number [address] [facility] * Vancomycin level, random (12/26/2018 3:56 AM CDT) Only the most recent of 2 results within the time period is included. Vancomycin Rm 16.4 ug/mL [facility] Specimen Blood Narrative Performed At Reference Range: No Normals [facility] Performing Organization Address [facility] one Number [address] [facility] * Venous doppler legs bilateral (12/24/2018 6:55 PM CDT) Ejection Fraction [facility] ECHO HEARTLAB MKCKESSON CPACS Specimen Impressions Performed At Right Impression [facility] 1. There is no deep venous obstruction in the common femoral, prof[facility] femoral, femoral, popliteal, posterior tibial or peroneal [...] PV LAB - Lower Extremities DVT Study [facility] Demographics [facility] Patient Name INDRA GALVAN Date of Study12/24/2018 RUSS VEE JR. [id number] Visit Number [id number] Gender Male Accession Number [id number] Date of Birth1980 Vlad Naranjo [id number] Physician SonographerGzay Maki RVS Interpreting Physician ConstantinoMD Procedure Type of Study: Veins: Lower Extremities DVT Study, CAMILLA OUS DOPPLER LEG, BILATERAL. Indications for Study:Leg [...] 12/24/2018 YAN CORDERO Age 38 Visit Number [id number] Gender Male Accession Number [id number] Date of 1980 Referring Audie Hoyt MD Room Number 8431 Physician Retirement Consultant Cb Maki RVS Interpreting Karen Blackwell, Physician Procedure Type of [...] are measured in cm Performing Organization Address City/State[place] one Number [facility] MKCKESSON CPA * HEMODIALYSIS INPATIENT (12/23/2018 11:25 PM CDT) [...] At FINAL REPORT [facility] CT right lower extremity. CLINICAL HISTORY: Knee trauma, tenderne ss or effusion, initial exam (Age > 1y) TECHNIQUE: Contiguous axial images of t he right lower extremity without contrast with coronal and sagit chely reformations. This exam was performed according to the [facility] dose optimization program which includes automated [...] Signed: Cherri Olivier MD Report Verified Date/Time: 03:00:15 Procedure Note Interface, External Ris In [...] Verified Date/Time: 12/23/2018 03:00:[address] [facility] Ph one Number [facility] * Vancomycin level, trough (12/22/2018 4:26 PM CDT) Vancomycin Tr 40.3 (HH) 10.0 - 20.0 ug/mL [facility] Specimen Blood Performing Organization Address [facility] one Number [address] [facility] * Fibrinogen (12/22/2018 3:55 AM CDT) Fibrinogen 195 (L) 225 - 434 mg/dl [facility] Specimen Blood Performing Organization Address [facility] one Number [address] [facility] * POC-Lactic Acid, Venous (12/21/2018 4:01 AM CDT) Only the most recent of 2 results within the time period is included. POC-Lactic Acid, Venous 1.6Comment: TESTED AT [facility] 0.9 - 1.7 mmol/L [address] Specimen Blood Performing Organization Address [facility] one Number [place] [address] [facility] * Ammonia (12/21/2018 2:48 AM CDT) Only the most recent of 2 results within the time period is included. Ammonia 65 18 - 72 mol/L [facility] Specimen Blood Performing Organization Address [facility] one [place] [address] [facility] * XR knee complete 4 views right [...] and treating other patients and teaching ti mo. Critical care was necessary to treat or [...] AM CDT) % Neutros (manual) 80 % [facility] % Lymphs (manual) 6 % [facility] % Monos (manual) 7 % [facility] % Eos (manual) 4 % [facility] % Baso (manual) 0 % [facility] % Bands (manual) 3 0 - 10 % [facility] # Neutros (manual) 15.76 (H) 1.80 - 8.00 K/L [facility] # Lymphs (manual) 1.18 (L) 1.48 - 4.50 K/L [facility] # Monos (manual) 1.38 (H) 0.00 - 1.30 K/L [facility] # Eos (manual) 0.79 (H) 0.00 - 0.50 K/L [facility] # Baso (manual) 0.00 0.00 - 0.20 K/L [facility] # Bands (manual) 0.6 0.0 - 0.8 K/L [facility] Total Counted 100 [facility] Bands plus Segmented 16.35 [facility] Neutrophils [facility] WBC Morphology Normal [facility] Platelet Morphology Normal [facility] Anisocytosis 2+ moderate [facility] All Cells 2+ moderate [facility] Poikilocytes 1+ few [facility] Specimen Blood Performing Organization Address City/State/Zipcode Ph one Number [facility] [address] [place], [place] [address] MED[facility]ENTER * IR Tunneled [...] my direction. Total intra-service time of sedation [id number]. The patient's vital signs were monitore d throughout the procedure and recorded in the patient's medical recor d by the nurse. Fractionating Still Operator:Regis Ortega MD. Publicity Director:None. Approach: Right internal jugular vein Estimated blood [...] monitored throughout the procedure by a nurse, an d remained stable.The patient tolerated the procedure [...] Report Verified Date/Time: 9 10:01:43 Reading Location: [facility] P048 Angio Bod y Reading Room Procedure [...] the patient's medical record by the nurse. Fractionating Still Operator: Regis Ortega MD. Publicity Director: None. Approach: Right internal jugular vein Estimated [...] by blunt dissection. A 19 cm right [place]se Duraflow 2 catheter was brought through the [...] Report Verified Date/Time: 11/15/2018 10:01:43 Reading Location: [facility] P048 Angio Body Reading Room Performing Organization Address City/State/Zipcode Ph one Number [facility] * XR chest 2 views (11/12/2018 9:38 PM CDT) Specimen Narrative Performed At FINAL REPORT TitanFile Chest, two views. MEDICAL HISTORY: Cough. COMPARISON [...] Report Verified Date/Time: 9 23:58:30 Reading Location: [facility] [id number] Consult Reading Room Procedure Note Interface, [...] Report Verified Date/Time: 11/12/2018 23:58:30 Reading Location: [address] Consult Reading Room Performing Organization Address [facility] one Number [facility] * Protein, random urine (11/12/2018 1:55 AM CDT) Protein, Urine 122 (H) 0 - 14 mg/dL [facility] Specimen Urine Performing Organization Address [facility] one Number [address] 0 [phone] [place] [address] * Creatinine, random urine (11/12/2018 1:55 AM CDT) Creatinine, Ur 225.8 mg/dL [facility] Specimen Urine Narrative Performed At Reference Range: No Normals [facility] Performing Organization Address [facility] one Number [address] 0 [phone] * REPORT OF PROCEDURE - ENDOSCOPY URL (11/10/2018 2:04 PM CDT) Narrative Performed At This result has an attachment that is n ot available. * Tissue Exam (11/10/2018 1:25 PM CDT) Case Report Surgical Pathology [facility] Case: [id number] Authorizing Provider:Devyn Lantigua MDCollected: 11/10/2018 1325 Ordering Location: [address] Received: 11/11/2018 0818 Service Pathologist: Be Arenas MD Specimens: A) - Polyp, Colon - Sigmoid, sigmoid polyp bx B) - Cecum, cecum ulcer bx ADDENDUM Immunostains for HSV1, HSV2, [facility] and CMV performed on block [address] are negative. DIAGNOSIS PART A SIGMOID COLON POLYP, [facility] POLYPECTOMY: [facility] HYPERPLASTIC POLYP. PART B CECUM BIOPSY FOR SUSPECTED ULCER: NONSPECIFIC ACTIVE COLITIS WITH ULCERATION AND REGENERATIVE FEATURES. NEGATIVE FOR GRANULOMAS, DYSPLASIA, OR INVASIVE CARCINOMA. NO MORPHOLOGIC OR IMMUNOPHENOTYPIC EVIDENCE OF LYMPHOMA. SEE DIAGNOSTIC COMMENT. IMMUNOSTAINS FOR VIRAL MARKERS PENDING, ADDENDUM TO FOLLOW. Signing Pathologist Direct Phone Line: [phone] COMMENT PART B: Immunohistochemical [facility] studies performed on block [address] demonstrate the lymphoid population to be positive for CD20 positive B cells and CD3/CD5 positive T cells. There is no aberrant co-expression of CD20 and CD5. Cyclin D1 is negative. There is no morphologic or immunophenotypic evidence of lymphoma. CPT Code(s) 88959d7, 87546, 88234z4 [facility] CLINICAL HISTORY Colon polyps [facility] H [facility] SPECIMEN SOURCE A. Sigmoid polyp biopsy. B. [facility] Cecum ulcer biopsy [facility] GROSS DESCRIPTION Part A. Received in formalin [facility] labeled with the patient's [facility] name, accession number and "polyp, colon-sigmoid" is a 0.2 cm guajardo soft tissue fragment, which is submitted in toto in A1. Part B. Received in formalin labeled with the patient's name, accession number and "cecum" are four irregular guajardo soft tissue fragments ranging 0.1-0.2 cm, which are submitted in toto in B1. CG/ew MICROSCOPIC DESCRIPTION Performed. [facility] SPECIAL STUDIES The interpretation of this [facility] case included the use of [facility] immunohistochemistry or special stains. BLOCK B1- HSV1, HSV2, CMV, CD20, CD3, CD5, CYCLIN D1 Control Slides Examined: In-house known positive controls were evaluated along with the test tissue. These control slides run alongside of the patients sample show appropriate staining. Internal positive and negative controls when available are evaluated Immunohistochemistry technical testing was performed at [facility], Pathology Laboratory where it was developed [...] Cecum structure (body structure) Performing Organization Address [facility] one Number [place] [address] [facility] * HEMODIALYSIS INPATIENT (11/09/2018 3:25 PM CDT) [...] 4:20 AM CDT) Yari Antigen Titer 1:2 [facility] Specimen Blood Performing Organization Address [facility] Ph one Number [facility] [address] [place], [place] [address] [facility] * Yari antigen with reflex to titer (11/08/2018 4:20 AM CDT) Yari Antigen Positive [facility] Specimen Blood Performing Organization Address City/State/Zipcode Ph one Number [facility] [address] [place], [place] [address] [facility] * CT chest with high resolution/ild (11/08/2018 12:16 AM CDT) Specimen Narrative Performed At FINAL REPORT TitanFile CT of the chest, without contrast Clinical [...] Report Verified Date/Time: 9 11:29:31 Reading Location: [facility] C013X Ortho Co nsult Reading Room Procedure [...] Report Verified Date/Time: 11/08/2018 11:29:31 Reading Location: [facility] B1 C013X Ortho Consult Reading Room Performing Organization Address City/State/Zipcode Ph one Number [facility] * Urinalysis w/Microscopic (11/05/2018 8:47 PM CDT) [facility], UA Dark Yellow [facility] Clarity, UA Clear [facility] Specific [place], UA 1.012 1.001 - 1.035 [facility] pH, UA 6.0 5.0 - 8.0 [facility] Protein, UA 20 mg/dL (A) Negative [facility] Glucose, UA Negative Negative [facility] Ketones, UA Negative Negative [facility] Bilirubin, UA Positive (A) Negative [facility] Blood, UA Negative Negative [facility] Nitrite, UA Negative Negative [facility] Leukocytes, UA Negative Negative [facility] Urobilinogen, UA 3.0 (H) 0.2 - 1.0 mg/dL [facility] RBC, UA 0 /HPF [facility] WBC, UA 1 /HPF [facility] Bacteria, UA Occasional [facility] Mucus Rare [facility] Specimen Source Urine, Clean Catch [facility] Specimen Urine Performing Organization Address City[facility] one Number [address] [facility] * Hepatitis B core antibody, total (11/05/2018 3:32 PM CDT) Hep B Core Total Ab Nonreactive Nonreactive [facility] Specimen Blood Performing Organization Address City/[facility] Ph one Number [address] [facility] * Hepatitis B surface antibody (11/05/2018 3:32 PM CDT) Hep B S Ab <8.0 <8.0 mIU/mL [facility] Specimen Blood Performing Organization Address City/State/Zipcode Ph one Number [facility] [address] [place], [place] [address] MED[facility]ENTER * IR non-tunneled dialysis catheter insertion (11/05/2018 12:10 PM CDT) Specimen Narrative Performed At FINAL REPORT [facility] PROCEDURE: Non-tunneled dialysis cathet er placement Procedural [...] applied. Catheter placed: Schon XL Catheter size (East Timorese): 14 Catheter length (cm): 15 Catheter flush: [...] Report Verified Date/Time: 9 19:49:40 Reading Location: [place] [id number] Angio Bod y Reading Room Procedure Note [...] applied. Catheter placed: Schon XL Catheter size (East Timorese): 14 Catheter length (cm): 15 Catheter flush: [...] Report Verified Date/Time: 11/05/2018 19:49:40 Reading Location: [facility] P048 Angio Body Reading Room Performing Organization Address City/State/Zipcode Ph one Number [facility] after 10/31/2018 Insurance Payer Benefit Subscriber ID Type Phone Address Plan / Group BLUE [employer]OSS/[employer] BCBS PPO xxxxxxxxxxxx PPO [phone] [address] [place] [address] CHOICE [phone] Advance Directives For more information, please contact: [facility] [address] [place] [address] Date Inactivated Comments Code Status [...]
[2019-11-01] MEDS ORDERED: SODIUM CHLORIDE 0.9% 250ML 250 ML IV ONE (21:45)
--- OUTSIDE RECORDS SUMMARY | 2019-11-01 21:50 | XMS REPORT | Continuity of Care Document ---
Author Author [facility] t Organization [facility] t Address [address] [place] [address] Phone Unavailable Care Team Providers Care Forest Fire Prevention Specialist Name Role Phone VOSSJOSE STONE Trudi PCP Anton KELSEY Attphys Unavailable KHLOE BOX Attphys Unavailable Jose Alejandro STENOGRAPHIC COURT REPORTER, Michael Attphys Unavailable Anastacio Killian Attphys Unavailable Anaya MURPHY, Kin Radford Attphys Unavailable Carlos A FRYE MPH, Laura Merchant Attphys [phone] Dorothy Boss Attphys Unavailable Elton SMITH, Katie Attphys Unavailable Laura Schwartz Attphys Unavailable Tim MURPHY, Brannon Mccartney Attphys Unavailable Steven STENOGRAPHIC COURT REPORTER, Laine Carreon Attphys Unavailable George MURPHY, Emily Attphys Unavailable Mabel MURPHY, aNy Attphys Unavailable Sanjana De Leon MD Attphys Grzegorz FRYE, Danii Shepard Attphys DANII LANTIGUA Attphys Unavailable Sea SMITH, Abby Attphys Unavailable Marissa Mixon Attphys Unavailable Ady MURPHY, Katie Attphys Unavailable Silvano MURPHY, Delores Attphys Unavailable Anthony GRINDER SET UP OPERATOR CENTERLESS, Spring Abel Attphys Kenisha Gordillo Attphys Unavailable Darvin WICK, Charmaine Howe Attphys Lj FRYE, Iman Geronimo Attphys Malou FRYE, Erin Mir Attphys Elsie FRYE, Robina Cummins Attphys [phone] Connie Christensen Attphys Unavailable Eduardo FRYE, Robbie Attphys Dea FRYE, Karey Mcmahan Attphys Sheikh MELVA, Melisa Lamb Attphys Ede RN, Radha Attphys Unavailable IMAN CALHOUN Attphys Unavailable Juan Antonio RN, Servando Attphys Unavailable Alvarez RN, Kaneshmichael Attphys Unavailable Jere RN, Martha Attphys Unavailable Joel FRYE, Gracie Rosamaria Attphys Laura Emery Attphys Unavailable Gracie MALDONADO ROSAMARIA Attphys Unavailable System, Not In Provider Attphys Unavailable Jaime FRYE, Hiwot Tinoco Attphys Corine FRYE, Melisa Belcher Attphys Eliceo FRYE, Scout Rayo Attphys Hiwot JOHNSON Attphys Unavailable Kendal FRYE, [facility] Attphys [phone] OZIEL VALDEZ Attphys Unavailable José Miguel FRYE, Oziel Christie Attphys [phone] Reggie FRYE, Yasmin Fermin Attphys Kenisha Rojas Attphys Unavailable VENTURA BREEN Attphys Unavailable Julia FRYE, Ventura Renee Attphys Brandon FRYE, Zenon Kaufman Attphys [phone] Audie Hoyt MD Attphys Caden FRYE, Melisa Attphys Hemalatha Alfredo Attphys Unavailable BRANDON, ZENON KAUFMAN Attphys Unavailable Kurt FRYE, Coreen Flanagan Attphys Kin Cavazos Attphys Unavailable Samina Silva CRNA Attphys [phone] Vinay Garcia MD Attphys INDRA PERRIN Attphys Unavailable BOCCARDO, KIET Attphys Unavailable KHLOE BOX Admphys Unavailable MEADOWS, ERIN SURESH Admphys Unavailable KHADERI, AIOZ WILFRED Admphys Unavailable Yasmin PAREEDS Admphys Unavailable OMRANIAN, ALI Admphys Unavailable BRANDON, ZENON KAUFMAN Admphys Unavailable INDRA PERRIN Admphys Unavailable BOCCARDO, KIET Admphys Unavailable Payers Payer Name Policy Type Policy Number Effective Date Expiration Date S hemalathagianfranco [employer] [facility] Ppo [id number] 2018 00:00:00 [facility] Cdc Review [id number] [facility] BLUE CROSS/BLUE SHIELDBCBS PPO POS EPO C [id number], [place] [address] xxxxxxxxxxxx [facility] Problems Condition Name Condition Details Condition Category Status Onset Date Resolution Date Last Treatment Date Treating Clinician Comments Source Sepsis Sepsis Disease Active 2019-05-04 00:00:00 [facility] Symptomatic anemia Symptomatic anemia Disease Active 2019-01-17 00:00:0 0 [facility] Tubular adenoma Tubular adenoma Disease Active 2019-01-17 00:00:00 [facility] Rash Rash Disease Active 2019-01-17 00:00:00 [facility] Screening for cancer Screening for cancer Disease Active 00:00:00 [facility] Alcohol use disorder, mild, abuse Alcohol use disorder, mild, ab use Disease Active 2019-01-17 00:00:00 [facility] Pedal edema Pedal edema Disease Active 2019-01-17 00:00:00 [facility] Hepatic encephalopathy Hepatic encephalopathy Disease Active 2019-01-17 00:00:00 [facility] Alcoholic hepatitis Alcoholic hepatitis Disease Active 2019-01-17 00:00 :00 [facility] Alcoholic cirrhosis Alcoholic cirrhosis Disease Active 2018-12-21 00:00 :00 [facility] Sepsis, unspecified organism Sepsis, unspecified organism Disease Active 2018-12-21 00:00:00 [facility] ESRD (end stage renal disease) ESRD (end stage renal disease) Disea se Active 2018-12-21 00:00:00 [facility] Liver failure Liver failure Disease Active 2018-10-16 00:00:00 [facility] Acute blood loss anemia Acute blood loss anemia Disease Active 2018-06-26 00:00:00 [facility] GIB (gastrointestinal bleeding) GIB (gastrointestinal bleeding) Dis ease Active 2018-06-21 00:00:00 [facility] Hemorrhagic shock Hemorrhagic shock Disease Active 2018-06-21 00:00:00 [facility] Hyperbilirubinemia Hyperbilirubinemia Disease Active 2018-06-01 00:00:0 0 [facility] Sinus tachycardia Sinus tachycardia Disease Active 2018-01-28 00:00:00 [facility] Prediabetes Prediabetes Disease Active 2018-01-28 00:00:00 [facility] Jaundice Jaundice Problem Active [facility] Pneumonia Pneumonia Problem Active [facility] Hepatic cirrhosis Problem Active [facility] Obesity Obesity Disease Active [facility] Fatty liver Fatty liver Disease Active [facility] Dark emesis Dark emesis Disease Active [facility] Hypotension due to hypovolemia Hypotension due to hypovolemia Disease Active [facility] Acute renal failure with tubular necrosis Acute renal failure with tubular necrosis Disease Active [facility] ESRD (end stage renal disease) on dialysis ESRD (end s tage renal disease) on dialysis Disease Active [facility] ESRD on hemodialysis ESRD on hemodialysis Disease Active [facility] History of Past Illness Condition Name Condition Details Condition Category Status Onset Date Resolution Date Last Treatment Date Treating Clinician Comments Source Respiratory center failure Respiratory center failure Disease Resolved 2018-06-01 00:00:00 2018-12-23 00:00:00 2018-12-23 18:37:49 [facility] Acute respiratory failure with hypoxia Acute respiratory ericka lure with hypoxia Disease Resolved 2018-06-01 00:00:00 2018-12-23 00:00:00 2018-12-23 18:37:3 7 [facility] ARDS (adult respiratory distress syndrome) ARDS (adult respiratory distress syndrome) Disease Resolved 2018-06-01 00:00:00 2018-12-23 00:00:00 2 18:37:31 [facility] Acute kidney injury Acute kidney injury Disease Resolved 2018-05 00:00:00 2018-12-23 00:00:00 2018-12-23 18:37:33 [facility] Hyponatremia Hyponatremia Disease Resolved 2018-06-01 00:00:00 2 00:00:00 2018-12-23 18:37:52 [facility] Hypertension Hypertension Disease Resolved 2018-12-23 00: 00:00 2018-12-23 18:37:55 [facility] Allergies, Adverse Reactions, Alerts Allergy Name Allergy Type Status Severity Reaction(s) Onset Date Inacti ve Date Treating Clinician Comments Source Prednisone Drug Intolerance Active 2019-05-04 00:00:00 [facility] Ceftriaxone Drug Allergy Active Rash 2019-01-06 00:00:00 [facility] Family History Family Member Diagnosis Comments Start Date Stop Date Source Natural brother No Known Problem [facility] Natural father Hypertension [facility] Natural mother Hypertension [facility] Natural son No Known Problem [facility] Social History Social Habit Start Date Stop Date Quantity Comments Source Sex Assigned At [facility] Alcohol Comment 2019-02-04 00:00:00 2019-02-04 00:00:00 quit in 9 [facility] Alcohol intake 2018-01-25 00:00:00 2018-01-25 00:00:00 Current drinker of alcohol (finding) [facility] Smoking Status Start Date Stop Date Source [facility] Medications Ordered Medication Name Filled Medication Name Start Date Stop Da te Current Medication? Ordering Clinician Indication Dosage Frequency Signature (SIG) Comments Components Source Prednisone Prednisone 2019-10-21 10:46:00 Yes 40 [place] ly [facility] Propranolol Hcl Propranolol Hcl 2019-10-21 10:46:00 Yes 10 Twice A Day [facility] Sucralfate (Carafate) 1 Gm TABLET Sucralfate (Carafate) 1 Gm TABLET 2019-10-21 10:46:00 Yes 1 Before Meals And At Bedtime [facility] Pantoprazole Sodium (Protonix) 40 Mg TABLET. Pantopr azole Sodium (Protonix) 40 Mg TABLET. 2019-09-27 10:11:00 Yes 40 Before Kindra kfast [facility] traZODone (DESYREL) 50 MG tablet 2019-06-17 10:52:35 Yes 50mg QD Take 50 mg by mouth nightly. [facility] furosemide (LASIX) 10 mg/mL solution 2019-05-13 12:01:00 Ye s QD Take by mouth daily. [facility] colchicine (COLCRYS) 0.6 mg tablet 2019-05-11 00:00:00 202 23:59:00 No .6mg QD Take 1 tablet (0.6 mg total) by mouth bere martino for 11 days. [facility] FUROSEMIDE ORAL 2019-05-10 14:52:11 2019-05-10 00:00:00 No 80mg QD Take 80 mg by mouth daily . [facility] pantoprazole (PROTONIX) 40 MG tablet 2019-05-10 00:00:00 Ye s 40mg Q.5D Take 1 tablet (40 mg total) by mouth 2 (two) times daily. [facility] UNKNOWN 2019-02-04 09:37:27 2019-02-04 00:00:00 No QD daily Pt states he takes a medication to suppress his alcohol cravings . [facility] UNKNOWN 2019-02-04 09:37:25 2019-02-04 00:00:00 No naus ea as needed Pt takes dissolving tablet for nausea, unsure of name . [facility] thiamine 100 MG tablet 2019-02-04 00:00:00 Yes Portal hypertension (HCC) 100mg QD Take 1 tablet (100 mg total) by mouth daily. [facility] hydrOXYzine (ATARAX) 25 MG tablet 2019-01-16 00:00:00 2018 23:59:00 No Pruritus 25mg Take 1 tablet (2 5 mg total) by mouth every 6 (six) hours as needed for Itching for up to 30 days. [facility] traMADol (ULTRAM) 50 mg tablet 2019-01-06 00:00:00 Yes TK 1 T PO Q 8 H PRN P [facility] diphenhydrAMINE-zinc acetate (BENADRYL EXTRA STRENGTH) 2-0.1 % cream 2019-01-06 00:00:00 2020-01-06 23:59:00 No Apply topically 3 (three) times daily as needed for Itching. [facility] thiamine 100 MG tablet 2018-12-27 00:00:00 2019-02-04 00:00:00 N o 100mg QD Take 1 tablet (100 mg total) by mouth daily. [facility] traZODone (DESYREL) 50 MG tablet 2018-12-26 09:59:23 2018-11 00:00:00 No 50mg QD Take 50 mg by mouth nightly. [facility] midodrine (PROAMATINE) 10 MG tablet 2018-12-26 09:59:2 3 2018-12-26 00:00:00 No 10mg Q.[id number] Take 10 mg by mouth 3 (th ree) times daily. [facility] ondansetron (ZOFRAN-ODT) 4 MG disintegrating tablet 2018-12-26 09:59:23 2018-12-26 00:00:00 No 4mg Take 4 mg by mouth every 6 (six) hours as needed for Nausea. [facility] lactulose (CHRONULAC) 20 gram/30 mL solution 2018-12-26 00:00:00 Yes 30g Q.[id number] Take 45 mLs (30 g total) by mouth 3 ( three) [facility]. [facility] ([facility]INE[facility] 10 MG tablet 2018-12-26 00:00:00 Yes 10mg Q.[id number] Take 1 tablet (10 mg total) by mouth 3 ( three) times daily. [facility] phytonadione, vitamin K1, (MEPHYTON) 5 mg tablet 2018-12-26 00:00:00 2019-02-04 00:00:00 No 5mg QD Take 1 tablet (5 mg total) by mouth daily. [facility] ciprofloxacin HCl (CIPRO) 500 MG tablet 00:00:00 2018-12-29 23:59:00 No 500mg QD Take 1 tablet (500 mg total) by mouth daily for 3 days. [facility] heparin injection 1,000 units/mL for IV bolus/dialysis lock 2018-11-15 00:00:00 2018-11-15 23:59:00 No 1000U 1-3.6 mLs (1,000-3,600 Units total) by Intra-Catheter route once as needed (hemodialysis acute catheter packing) for up to 1 dose. [facility] traZODone (DESYREL) 100 MG tablet 2018-11-07 09:02:2018 00:00:00 No 100mg QD Take 100 mg by mouth nightly. [facility] lactulose (CHRONULAC) 20 gram/30 mL solution 201 11-05-11 09:02:2018-11-07 00:00:00 No 20g Q.[id number] Ta ke 20 g by mouth 3 (three) times daily Titrate to 3 BM's/day . [facility] furosemide (LASIX) 20 MG tablet 2018-11-07 09:02: 00:00:00 No 40mg QD Take 40 mg by mouth daily. [facility] folic acid (FOLVITE) 1 MG tablet 2018-11-07 00:00:00 2019-10 23:59:00 No 1mg QD Take 1 tablet (1 mg total) by mouth daily. [facility] pantoprazole (PROTONIX) 40 MG tablet 2018-11-07 00:00: 00 2019-05-10 00:00:00 No 40mg QD Take 1 tablet (40 mg total) by mouth [place] ly. [facility] lactulose (CHRONULAC) 20 gram/30 mL solution 201 11-05-11 00:00:00 2018-12-26 00:00:00 No 30g Q.[id number] Ta ke 45 mLs (30 g total) by mouth 3 (three) times daily. [facility] ipratropium (ATROVENT) 0.02 % nebulizer solution 2018-11-07 00:00:00 2018-12-26 00:00:00 No .5mg Take 2.5 mLs (0.5 mg total) by nebulization every 6 (six) hours as needed. [facility] levoFLOXacin (LEVAQUIN) IVPB 250 mg in dextrose 5% (D5W) 50 mL 2018-11-07 00:00:00 2018-12-26 00:00:00 No 250mg Q24H Inject 50 mLs (250 mg total) intravenously daily. [facility] melatonin 3 mg Tab tablet 2018-11-07 00:00:00 2018-12-26 00:00:0 0 No 6mg Take 2 tablets (6 mg total) by mouth every night as needed. [facility] octreotide (SANDOSTATIN) 100 mcg/mL Soln 2018-10 00:00:00 2018-12-26 00:00:00 No 100ug Q.[id number] In ject 1 mL (100 mcg total) subcutaneously 3 (three) times daily. [facility] phytonadione 0.8 mg/mL Soln ORAL solution 11-07 00:00:00 2018-12-26 00:00:00 No 5mg QD Take 6.25 mLs (5 mg total) by m outh daily. [facility] thiamine (B-1) 100 mg/mL injection 2018-11-07 00:00:00 11-05-30 00:00:00 No 100mg QD Inject 1 mL (100 mg total) intravenously daily. [facility] traZODone (DESYREL) 50 MG tablet 2018-11-07 00:00:00 2018-11 23:59:00 No 50mg Take 1 tablet (50 mg total) by mouth every night as needed for up to 30 days. [facility] midodrine (PROAMATINE) 5 MG tablet 2018-11-07 00:00:00 11-06-11 23:59:00 No 5mg Q.[id number] Take 1 ta blet (5 mg total) by mouth 3 (three) times daily for 30 days. [facility] guaiFENesin (ROBITUSSIN) 100 mg/5 mL syrup 11-07 00:00:00 2018-11-17 23:59:00 No 200mg Take 10 mLs (2 00 mg total) by mouth every 4 (four) hours as needed for Congestion for up to 10 days. [facility] benzonatate (TESSALON) 100 MG capsule 2018-11-07 00:00 :00 2018-11-14 23:59:00 No 100mg Q.[id number] Take 1 capsule (100 mg total) by mouth 3 (three) times daily for 7 days. [facility] multivitamin (THERAGRAN) tablet 2018-07-10 00:00:00 23:59:00 No 1{tbl} QD Take 1 tablet by mouth daily. [facility] furosemide (LASIX) 10 mg/mL injection 2018-07-10 00:00 :00 2018-11-07 00:00:00 No 20mg Inject 2 mLs (2 0 mg total) intravenously daily as needed (significant edema) Patient with hypotension, on midodrine. Need to watch BPs. [facility] Folic Acid Folic Acid Yes 1 Daily [facility] Midodrine Hcl Midodrine Hcl Yes [facility] Trazodone Hcl Trazodone Hcl Yes 50 Bedtime [facility] Hydrochlorothiazide Hydrochlorothiazide 2019-10-21 00:00:00 No 25 Daily [facility] Pantoprazole Sodium (Protonix) 40 Mg TABLET. Pantopr azole Sodium (Protonix) 40 Mg TABLET. 2019-10-21 00:00:00 No [facility] Nifedipine (Nifedipine Er) 30 Mg TAB.ER.24 Nifedipine (Nifedipine Er) 30 Mg TAB.ER.24 2019-10-18 00:00:00 No 30 Twice A Day [facility] Levofloxacin (Levaquin) 500 Mg TABLET Levofloxacin (Levaquin) 50 0 Mg TABLET 2018-05-27 00:00:00 No 500 Daily [facility] Olmesartan Med/Amlodipine/Hctz (Tribenzor 40-5-12.5 Mg Tablet) 1 Each TABLET Olmesartan Med/Amlodipine/Hctz (Tribenzor 40-5-12.5 Mg Tablet) 1 Each TABLET 2018-05-27 00:00:00 No 1 Daily [facility] Pantoprazole Sodium (Protonix) 40 Mg TABLET. Pantopr azole Sodium (Protonix) 40 Mg TABLET. 2018-05-27 00:00:00 No 40 Daily [facility] Vital Signs Vital Name Observation Time Observation Value Comments Source Body Temperature 2019-10-21 15:34:00 97.7 [degF] [facility] BMI (Body Mass Index) 2019-10-18 16:11:00 30.7 kg/m2 [facility] Weight 2019-10-18 12:15:00 226 [lb_av] [facility] Body Temperature 2019-09-27 17:18:00 99.0 [degF] [facility] BMI (Body Mass Index) 2019-09-27 09:42:00 26.6 kg/m2 [facility] Weight 2019-09-26 13:55:00 196 [lb_av] [facility] Systolic blood pressure 2019-05-13 10:59:00 115 mm[Hg] [facility] Diastolic blood pressure 2019-05-13 10:59:00 69 mm[Hg] [facility] Heart rate 2019-05-13 10:59:00 90 /min [facility] Body temperature 2019-05-13 10:59:00 36.94 Dariel [facility] Respiratory rate 2019-05-13 10:59:00 18 /min [facility] Body height 2019-05-13 10:59:00 180.3 cm [facility] Body weight Measured 2019-05-13 10:59:00 86.229 kg [facility] BMI 2019-05-13 10:59:00 26.51 kg/m2 [facility] Oxygen saturation in Arterial blood by Pulse oximetry 05-12 10:59:00 100 /min [facility] Procedures Procedure Date / Time Performed Performing Clinician [facility] e US guided paracentesis 2019-10-19 00:00:00 [facility] US Abdomen limited 2019-10-18 00:00:00 [facility] of abdomen and pelvis without contrast 2019-10-18 00:00:00 [facility] PERFORMANCE OF URINARY FILTRATION, <6 HRS/DAY 2019-09-27 00:00:0 0 [facility] TRANSFUSE NONAUT RED BLOOD CELLS IN PERIPH VEIN, PERC 2019-09-27 00:00:00 [facility] US abdomen complete 2019-09-26 00:00:00 [facility] PERFORMANCE OF URINARY FILTRATION, <6 HRS/DAY 2019-09-26 00:00:0 0 [facility] TRANSFUSE NONAUT RED BLOOD CELLS IN PERIPH VEIN, PERC 2019-09-26 00:00:00 [facility] MR ABDOMEN WITH & WITHOUT IV CONTRAST 2019-05-23 12:08:00 Stribl ing, Rise J. [facility] BASIC METABOLIC PANEL (7) 2019-05-23 09:03:00 Devyn Lantigua [facility] HEPATIC FUNCTION PANEL 2019-05-23 09:03:00 Devyn Lantigua [facility] PROTHROMBIN TIME/INR 2019-05-23 09:03:00 Devyn Lantigua [facility] CBC W/PLT COUNT & AUTO DIFFERENTIAL 2019-05-23 09:03:00 Alfred Lantigua [facility] RHYTHM STRIP - SCAN 2019-05-15 16:11:24 Provider, Default Zita [facility] MISCELLANEOUS LAB ORDER 2019-05-14 09:30:00 Placido Zimmerman [facility] PROTHROMBIN TIME/INR 2019-05-14 09:30:00 Devyn Lantigua [facility] HEPATIC FUNCTION PANEL 2019-05-14 09:30:00 Devyn Lantigua [facility] BASIC METABOLIC PANEL (7) 2019-05-14 09:30:00 Devyn Lantigua [facility] BILIRUBIN, DIRECT 2019-05-14 09:30:00 [facility] CBC W/PLT COUNT & AUTO DIFFERENTIAL 2019-05-14 09:30:00 Alfred Lantgiua [facility] REPORT OF PROCEDURE - ENDOSCOPY SCAN 2019-05-13 11:03:24 Pro vider, Default Scanning [facility] RHYTHM STRIP - SCAN 2019-05-12 15:11:01 Provider, Default [facility] REPORT OF PROCEDURE - ENDOSCOPY SCAN 2019-05-12 15:10:56 Pro vider, Default [facility] CARDIAC CATH REPORT - SCAN 2019-05-12 15:10:54 Provider, Default [facility] MAGNESIUM 2019-05-10 05:22:00 Carlos Lyons [facility] PHOSPHORUS 2019-05-10 05:22:00 Carlos Lyons [facility] [place] MYOCARDIAL PERFUSION PET/CT (REST & STRESS) 2019-05-09 14:55: 00 Robbie New [facility] TREADMILL TOLERANCE(NON-NUCLEAR TREADMILL) 2019-05-09 14:24: 27 Unknown, Hl7 Doctor [facility] HEMODIALYSIS INPATIENT 2019-05-09 07:47:24 Rosamaria Maldonado [facility] MAGNESIUM 2019-05-09 05:35:00 Serena [facility] PHOSPHORUS 2019-05-09 05:35:00 Serena, [facility] COMPREHENSIVE METABOLIC PANEL 2019-05-09 05:35:[address] [facility] CBC W/PLT COUNT & AUTO DIFFERENTIAL 2019-05-09 05:35:[address] [facility] TRANSFUSION SERVICE REPORT - SCAN 2019-05-08 17:52:07 Provid er, Default Scanning [facility] LIMITED 2D ECHOCARDIOGRAM 2019-05-08 11:40:31 Robbie New [facility] PROCALCITONIN 2019-05-08 03:02:00 Serena, Carlos [facility] MAGNESIUM 2019-05-08 03:02:00 Serena [facility] PHOSPHORUS 2019-05-08 03:02:00 Serena [facility] BASIC METABOLIC PANEL (7) 2019-05-08 03:02:00 Idris Murry ph [facility] CBC W/PLT COUNT & AUTO DIFFERENTIAL 2019-05-08 03:02:00 Indra Munguia [facility] (CELLAVISION MANUAL DIFF) 2019-05-08 03:02:00 Idris Murry ph [facility] HEMODIALYSIS INPATIENT 2019-05-08 00:48:36 Rosamaria Maldonado [facility] PREPARE LEUKO-REDUCED RBC 2019-05-07 23:54:00 Zamzam Correa [facility] PERIPHERAL VASCULAR REPORT - SCAN 2019-05-07 21:12:27 Provid er, Default [facility] PERICARDIOCENTESIS 2019-05-07 20:33:00 Robbie New [facility] BODY FLUID CULTURE + GRAM STAIN 2019-05-07 19:20:14 Robbie New [facility] CYTOLOGY 2019-05-07 19:20:00 Robbie New [facility] 2D ECHO W/ DOPPLER (CW/PW/COLOR) 2019-05-07 18:32:29 Coreen New [facility] TRANSFUSION SERVICE REPORT - SCAN 2019-05-07 17:52:09 Provid er, Default Scanning [facility] COMPREHENSIVE METABOLIC PANEL 2019-05-07 06:42:00 Suresh Meadowso c [facility] CBC W/PLT COUNT & AUTO DIFFERENTIAL 2019-05-07 06:42:00 Isacc Meadows Erin [facility] (CELLAVISION MANUAL DIFF) 2019-05-07 06:42:00 Suresh Meadows [facility] PREPARE LEUKO-REDUCED RBC 2019-05-06 23:54:00 Juanpablo Calhoun [facility] TRANSFUSION SERVICE REPORT - SCAN 2019-05-06 18:02:23 Provid er, Default [facility] CAROTID DOPPLER BILATERAL 2019-05-06 16:05:00 Karen Carranza [facility] REPORT OF PROCEDURE - ENDOSCOPY URL 2019-05-06 13:43:19 Zainab Alves [facility] 2D ECHO W/ DOPPLER (CW/PW/COLOR) 2019-05-06 13:06:03 Coreen New [facility] UPPER ENDOSCOPY 2019-05-06 10:00:00 Zainab Alves [facility] COMPREHENSIVE METABOLIC PANEL 2019-05-06 04:52:00 Angelic Lomeli [facility] MAGNESIUM 2019-05-06 04:52:00 Zamzam Correa [facility] CBC W/PLT COUNT & AUTO DIFFERENTIAL 2019-05-06 04:52:00 [facility] 2019-05-06 04:52:00 Angelic Lomeli [facility] TRANSFUSE LEUKO-REDUCED RED BLOOD CELLS 2019-05-06 03:24:02 Madeline [facility] CBC W/PLT COUNT & AUTO DIFFERENTIAL 2019-05-05 21:10:00 Madeline [facility] BASIC METABOLIC PANEL (7) 2019-05-05 21:09:00 Correa [facility] MAGNESIUM 2019-05-05 21:09:00 Correa [facility] TROPONIN I 2019-05-05 21:09:00 Correa, [facility] ECG 12-LEAD 2019-05-05 20:53:39 Unknown, 7 [facility] ECG 12-LEAD 2019-05-05 20:52:05 Unknown, 7 [facility] ECG 12-LEAD 2019-05-05 19:34:00 Unknown, 7 [facility] ECG 12-LEAD 2019-05-05 19:32:27 Unknown, 7 [facility] TRANSFUSION SERVICE REPORT - SCAN 2019-05-05 17:52:36 Provid er, Default Scanning [facility] HEMODIALYSIS INPATIENT 2019-05-05 15:16:18 Rosamaria Maldonado Fredy [facility] HEPATITIS B SURFACE ANTIGEN 2019-05-05 15:02:00 Christopher Maldonado [facility] OCCULT BLOOD, STOOL 2019-05-05 12:07:00 Armani [facility] COMPREHENSIVE METABOLIC PANEL 2019-05-05 09:51:00 Armani [facility] RETICULOCYTE COUNT 2019-05-05 09:51:00 Armani [facility] BILIRUBIN, DIRECT 2019-05-05 09:51:00 Armani [facility] FERRITIN 2019-05-05 09:51:00 Armani [facility] IRON, TIBC, % SAT. (WITHOUT FERRITIN) 2019-05-05 09:51:00 Armani [facility] DIRECT AHG (LUMA)/DIRECT ANTONIA 2019-05-05 09:51:00 Angelic Lomeli [facility] ABORH, MANUAL 2019-05-05 09:51:00 Armani [facility] CBC W/PLT COUNT & AUTO DIFFERENTIAL 2019-05-05 09:51:00 Kin Lomeli [facility] TRANSFUSE LEUKO-REDUCED RED BLOOD CELLS 2019-05-05 08:35:39 Lj, [facility] TRANSFUSE LEUKO-REDUCED RED BLOOD CELLS 2019-05-05 01:08:39 Lj, [facility] LACTIC ACID, VENOUS 2019-05-05 00:29:00 Lj, [facility] ECG 12-LEAD 2019-05-05 00:27:17 Unknown, Hl7 [facility] TYPE AND SCREEN, AUTOMATED 2019-05-04 20:42:00 Lj, Juanpablo [facility] URINE CULTURE 2019-05-04 19:53:00 Lj, [facility] URINALYSIS W/ REFLEX URINE CULTURE 2019-05-04 19:53:00 Lj, Terrence ael [facility] LEGIONELLA URINE ANTIGEN 2019-05-04 19:53:00 Lj, [facility] BLOOD CULTURE 2019-05-04 19:29:00 Lj, [facility] MAGNESIUM 2019-05-04 19:29:00 Lj, [facility] PHOSPHORUS 2019-05-04 19:29:00 Lj, [facility] B-TYPE NATRIURETIC FACTOR (BNP) 2019-05-04 19:29:00 Lj, [facility] PT/APTT 2019-05-04 19:29:00 Lj, [facility] TROPONIN I 2019-05-04 19:29:00 Lj, [facility] COMPREHENSIVE METABOLIC PANEL 2019-05-04 19:29:00 Lj, Juanpablo roberts [facility] LACTIC ACID, VENOUS 2019-05-04 19:29:00 Lj, [facility] PROCALCITONIN 2019-05-04 19:29:00 Lj, Juanpablo Valerio [facility] CBC W/PLT COUNT & AUTO DIFFERENTIAL 2019-05-04 19:29:00 Emigdio Calhoun [facility] RAPID INFLUENZA A&B SCREEN 2019-05-04 19:28:00 Lj, Juanpablo franklin [facility] CRITICAL CARE 2019-05-04 18:47:50 Lj, Juanpablo Valerio [facility] XR CHEST 1 VIEW PORTABLE/BEDSIDE 2019-05-04 18:05:00 Lj, Anderson Valerio [facility] BASIC METABOLIC PANEL (7) 2019-04-07 09:34:00 Devyn Lantigua [facility] HEPATIC FUNCTION PANEL 2019-04-07 09:34:00 Devyn Lantigua [facility] PROTHROMBIN TIME/INR 2019-04-07 09:34:00 Devyn Lantigua [facility] CBC W/PLT COUNT & AUTO DIFFERENTIAL 2019-04-07 09:34:00 Alfred Lantigua [facility] BASIC METABOLIC PANEL (7) 2019-03-14 10:32:00 Devyn Lantigua [facility] HEPATIC FUNCTION PANEL 2019-03-14 10:32:00 Devyn Lantigua [facility] PROTHROMBIN TIME/INR 2019-03-14 10:32:00 Devyn Lantigua [facility] CBC W/PLT COUNT & AUTO DIFFERENTIAL 2019-03-14 10:32:00 Alfred Lantigua [facility] BILIRUBIN, DIRECT 2019-03-04 10:00:00 Devyn Lantigua [facility] COMPREHENSIVE METABOLIC PANEL 2019-03-04 10:00:00 Devyn Lantigua [facility] CBC W/PLT COUNT & AUTO DIFFERENTIAL 2019-03-04 10:00:00 Alfred Lantigua [facility] PROTHROMBIN TIME/INR 2019-03-04 09:55:00 Devyn Lantigua [facility] BILIRUBIN, DIRECT 2019-02-03 10:13:00 Wilfred Fenton [facility] COMPREHENSIVE METABOLIC PANEL 2019-02-03 10:13:00 Wilfred Fenton [facility] PROTHROMBIN TIME/INR 2019-02-03 10:12:00 Wilfred Fenton I [facility] CBC W/PLT COUNT & AUTO DIFFERENTIAL 2019-02-03 10:12:00 Wilfred Fenton [facility] US PELVIS WITH DOPPLER 2019-02-03 09:35:00 Rosamaria Maldonado [facility] RHYTHM STRIP - SCAN 2019-01-21 11:42:13 Provider, Default [facility] RHYTHM STRIP - SCAN 2019-01-20 16:02:13 Provider, Default [facility] RHYTHM STRIP - SCAN 2019-01-20 16:02:12 Provider, Default [facility] TRANSFUSION SERVICE REPORT - SCAN 2019-01-19 18:00:57 Provid er, Default Sc[facility] PREPARE LEUKO-REDUCED RBC 2019-01-18 23:55:00 Wilfred Fenton [facility] TRANSFUSION SERVICE REPORT - SCAN 2019-01-18 18:03:07 Provid er, Default [facility] FERRITIN 2019-01-18 17:47:00 Litzylaura [facility] IRON, TIBC, % SAT. (WITHOUT FERRITIN) 2019-01-18 17:47:00 Leonidas [facility] LACTATE DEHYDROGENASE (LDH) 2019-01-18 17:47:00 [facility] HAP[facility] 2019-01-18 17:47:00 Chele [facility] VITAMIN B12 AND FOLATE 2019-01-18 17:47:00 [facility] ULTR[facility] HD CRRT 2019-01-18 15:13:25 Roseanne Zelaya [facility] HEMOGLOBIN AND HEMATOCRIT 2019-01-18 11:17:00 Ye Pool elizabeth [facility] CBC (HEMOGRAM ONLY) 2019-01-18 02:51:00 Ye Pool [facility] TRANSFUSE LEUKO-REDUCED RED BLOOD CELLS 2019-01-17 23:33:32 Ye Pool [facility] TRANSFUSE LEUKO-REDUCED RED BLOOD CELLS 2019-01-17 22:39:14 Ye Pool [facility] HEMODIALYSIS INPATIENT 2019-01-17 21:29:31 GarciaRoseanne [facility] TYPE AND SCREEN, AUTOMATED 2019-01-17 15:35:00 Wilfred Fenton [facility] HLA TYPING CI 2019-01-16 15:56:00 Miller [facility] HLA TYPING CII 2019-01-16 15:56:00 Onelia Maldonadoherine Fredy [facility] FLOW PRA CLASS I WITH REFLEX TO ANTIBODY SPECIFICITY 2018-12 15:56:00 Joel Rosamaria [facility] FLOW PRA CLASS II WITH REFLEX TO ANTIBODY SPECIFICITY 2018-02 15:56:00 Rosamaria Maldonado [facility] BASIC METABOLIC PANEL (7) 2019-01-16 15:56:00 Carley Boston [facility] HEPATIC FUNCTION PANEL 2019-01-16 15:56:00 Carley Boston [facility] PROTHROMBIN TIME/INR 2019-01-16 15:56:00 [facility] ALPHA FETOPROTEIN (AFP), TUMOR MARKER 2019-01-16 15:56:00 [facility] AB SPECIFICITY CLASS I 2019-01-16 15:56:00 Rosamaria Maldonado [facility] CBC W/PLT COUNT & AUTO DIFFERENTIAL 2019-01-16 15:56:00 Frederick Boston Charmaine [facility] RHYTHM STRIP - SCAN 2019-01-08 09:10:11 Provider, Default Scaniman manjarrez [facility] TRANSFUSION SERVICE REPORT - SCAN 2019-01-06 17:50:45 Provid er, Default Scanning [facility] MISCELLANEOUS LAB ORDER 2019-01-06 06:01:00 Erik De Leon [facility] CBC (HEMOGRAM ONLY) 2019-01-06 06:01:00 Jeny Paredes V. [facility] BASIC METABOLIC PANEL (7) 2019-01-06 06:01:00 Jeny Paredes V. [facility] MAGNESIUM 2019-01-06 06:01:00 Rj Paredespowderly Yasmin [facility] PROTHROMBIN TIME/INR 2019-01-06 06:01:00 Rj Paredespowderly Yasmin [facility] HEPATIC FUNCTION PANEL 2019-01-06 06:01:00 Reggie [facility] LEUKO-REDUCED RBC 2019-01-05 23:54:00 Vimal Brene [facility] TRANSFUSION SERVICE REPORT - SCAN 2019-01-05 17:50:34 Provid er, Default Scanning [facility] CBC (HEMOGRAM ONLY) 2019-01-05 04:30:00 Rj Paredespowderly aYsmin [facility] BASIC METABOLIC PANEL (7) 2019-01-05 04:30:00 Jeny Paredes V. [facility] MAGNESIUM 2019-01-05 04:30:00 Jeny [facility] HEPATIC FUNCTION PANEL 2019-01-05 04:30:00 Jeny Paredes [facility] PROTHROMBIN TIME/INR 2019-01-05 04:30:00 Rj Paredespowderly Yasmin [facility] PREPARE LEUKO-REDUCED RBC 2019-01-04 23:54:00 Pratik Valdez [facility] TRANSFUSION SERVICE REPORT - SCAN 2019-01-04 17:53:27 Provid er, Default Sc[facility] DRUG SCREEN, URINE, COMPREHENSIVE 2019-01-04 17:39:00 Laine Roper [facility] DRUG SCREEN, URINE, TRANSPLANT 2019-01-04 17:39:00 Kai Roper [facility] TRANSFUSE LEUKO-REDUCED RED BLOOD CELLS 2019-01-04 14:09:28 Vimal Breen [facility] ETHANOL 2019-01-04 09:42:00 Kai Roper [facility] BASIC METABOLIC PANEL (7) 2019-01-04 04:07:00 Vimal Breen [facility] HEPATIC FUNCTION PANEL 2019-01-04 04:07:00 Vimal Breen [facility] CBC W/PLT COUNT & AUTO DIFFERENTIAL 2019-01-04 04:07:00 Vimal Parsons [facility] TRANSFUSE LEUKO-REDUCED RED BLOOD CELLS 2019-01-04 01:55:28 Pratik Valdez [facility] TYPE AND SCREEN, AUTOMATED 2019-01-03 21:56:00 Pratik Valdez [facility] BASIC METABOLIC PANEL (7) 2019-01-03 21:54:00 Pratik Valdez [facility] HEPATIC FUNCTION PANEL 2019-01-03 21:54:00 Pratik Valdez [facility] PT/APTT 2019-01-03 21:54:00 Pratik Valdez [facility] CBC W/PLT COUNT & AUTO DIFFERENTIAL 2019-01-03 21:54:00 Kin Valdez [facility] REPORT OF PROCEDURE - ENDOSCOPY SCAN 2018-12-31 12:52:49 Pro vider, Default Scanning [facility] TRANSFUSION SERVICE REPORT - SCAN 2018-12-27 18:02:58 Provid er, Default [facility] RHYTHM STRIP - SCAN 2018-12-27 16:04:17 Provider, Default Scanni [facility] PREPARE LEUKO-REDUCED RBC 2018-12-26 23:54:00 Audie Hoyt CH, I [facility] TRANSFUSION SERVICE REPORT - SCAN 2018-12-26 18:02:50 Provid er, Default [facility] VANCOMYCIN LEVEL, RANDOM 2018-12-26 03:56:00 Maurice Stern [facility] BASIC METABOLIC PANEL (7) 2018-12-26 03:56:00 Gian [facility] MAGNESIUM 2018-12-26 03:56:00 Gian [facility] PHOSPHORUS 2018-12-26 03:56:00 [facility] HAPTOGLOBIN 2018-12-26 03:56:00 Audie Hoyt [facility] HEPATIC FUNCTION PANEL 2018-12-26 [facility]:56[facility] & AUTO DIFFERENTIAL 2018-12-26 03:56:00 Anahicarekenisha shook [facility] PERIPHERAL VASCULAR REPORT - SCAN 2018-12-25 21:23:01 Provid er, Default Scanning [facility] TRANSFUSE LEUKO-REDUCED RED BLOOD CELLS 2018-12-25 11:12:26 Audie Huerta [facility] TYPE AND SCREEN, AUTOMATED 2018-12-25 08:51:00 Audie Hoyt [facility] BLOOD CULTURE 2018-12-25 08:25:00 Sydney Vasquez [facility] BASIC METABOLIC PANEL (7) 2018-12-25 03:46:00 Gian [facility] MAGNESIUM 2018-12-25 03:46:00 Gian [facility] PHOSPHORUS 2018-12-25 03:46:00 [facility] HE[facility] PANEL 2018-12-25 03:46:00 Placido Zimmerman [facility] PROTHROMBIN TIME/INR 2018-12-25 03:46:00 Placido Zimmerman [facility] LACTATE DEHYDROGENASE (LDH) 2018-12-25 03:46:00 Jacquelin [facility] CBC W/PLT COUNT & AUTO DIFFERENTIAL 2018-12-25 03:46:00 Ciccarel lo, [facility] VENOUS DOPPLER LEGS BILATERAL 2018-12-24 18:55:00 Audie Hoyt [facility] TRANSFUSION SERVICE REPORT - SCAN 2018-12-24 18:02:36 Provid er, Default Scanning [facility] BASIC METABOLIC PANEL (7) 2018-12-24 03:18:00 Ciccarellrafaela Hope [facility] MAGNESIUM 2018-12-24 03:18:00 Ciccarello [facility] PHOSPHORUS 2018-12-24 03:18:00 Ciccarello [facility] CBC W/PLT COUNT & AUTO DIFFERENTIAL 2018-12-24 03:18:00 Ciccarel bouchra [facility] PREPARE LEUKO-REDUCED RBC 2018-12-23 23:54:00 Omeor Moura [facility] HEMODIALYSIS INPATIENT 2018-12-23 23:25:30 Adri Soler [facility] CBC (HEMOGRAM ONLY) 2018-12-23 20:04:00 Maurice Stern [facility] TRANSFUSION SERVICE REPORT - SCAN 2018-12-23 18:01:02 Provid er, Default Scanning [facility] BASIC METABOLIC PANEL (7) 2018-12-23 04:01:00 Ciccarebrennan [facility] MAGNESIUM 2018-12-23 04:01:00 [facility] PHOSPHORUS 2018-12-23 04:01:00 [facility] VANCOMYCIN LEVEL, RANDOM 2018-12-23 04:01:00 Shmuel Sosa [facility] HEPATITIS B SURFACE ANTIGEN 2018-12-23 04:01:00 Adri Soler [facility] CBC W/PLT COUNT & AUTO DIFFERENTIAL 2018-12-23 04:01:00 [facility] PREPARE LEUKO-REDUCED RBC 2018-12-22 23:54:00 Víctor Breen [facility] CT LOWER EXTREMITY WITHOUT IV CONTRAST RIGHT 2018-12-22 21:0 4:00 Omero Moura [facility] TRANSFUSION SERVICE REPORT - SCAN 2018-12-22 18:01:22 Provid er, Default Sc[facility] VANCOMYCIN LEVEL, TROUGH 2018-12-22 16:26:00 Shmuel Sosa [facility] CBC (HEMOGRAM ONLY) 2018-12-22 16:26:00 Christy New [facility] TRANSFUSE LEUKO-REDUCED RED BLOOD CELLS 2018-12-22 11:21:40 Omero Hernandes [facility] XR CHEST 1 VIEW PORTABLE/BEDSIDE 2018-12-22 05:29:00 Gian [facility] BASIC METABOLIC PANEL (7) 2018-12-22 03:56:00 Gian [facility] MAGNESIUM 2018-12-22 03:56:00 Gian [facility] PHOSPHORUS 2018-12-22 03:56:00 Gian [facility] LACTIC ACID, VENOUS 2018-12-22 03:56:00 Gian [facility] CBC W/PLT COUNT & AUTO DIFFERENTIAL 2018-12-22 03:56:00 Sharad shook [facility] FIBRINOGEN 2018-12-22 03:55:00 IanShmuel winifred [facility] HEMOGLOBIN AND HEMATOCRIT 2018-12-21 08:29:00 Gian [facility] TRANSFUSE LEUKO-REDUCED RED BLOOD CELLS 2018-12-21 07:30:55 Víctor Breen [facility] POCT-LACTIC ACID, VENOUS 2018-12-21 04:01:00 Víctor Breen Ma [facility] BLOOD CULTURE 2018-12-21 03:04:00 Víctor Breen [facility] AMMONIA 2018-12-21 02:48:00 Víctor Breen [facility] PROCALCITONIN 2018-12-21 02:48:00 Víctor Breen [facility] POCT-LACTIC ACID, VENOUS 2018-12-21 02:01:00 Víctor Breen Ma [facility] BLOOD CULTURE 2018-12-21 01:54:00 Víctor Breen [facility] COMPREHENSIVE METABOLIC PANEL 2018-12-21 01:53:00 Gavino Breen [facility] TROPONIN I 2018-12-21 01:53:00 MartvilleVíctor [facility] PT/APTT 2018-12-21 01:53:[address] [facility] MAGNESIUM 2018-12-21 01:53:[address] [facility] TYPE AND SCREEN, AUTOMATED 2018-12-21 01:53:00 Víctor Breen [facility] CBC W/PLT COUNT & AUTO DIFFERENTIAL 2018-12-21 01:53:00 Víctor Breen [facility] XR CHEST 1 VIEW PORTABLE/BEDSIDE 2018-12-21 01:39:[address] [facility] XR KNEE RIGHT COMPLETE (4 VIEWS) 2018-12-21 01:39:00 Julia [facility] ECG 12-LEAD 2018-12-21 01:18:37 Unknown, Hl7 Doctor [facility] CRITICAL CARE 2018-12-21 01:10:[address] [facility] RHYTHM STRIP - SCAN 2018-11-19 09:00:16 Provider, Default Scanni [facility] TRANSFUSION SERVICE REPORT - SCAN 2018-11-15 17:52:49 Provid er, Default Scanning [facility] CBC W/PLT COUNT & AUTO DIFFERENTIAL 2018-11-15 11:16:00 Panchito Hicks [facility] (MANUAL DIFFERENTIAL) 2018-11-15 11:16:00 Panchito Hicks [facility] HEPATIC FUNCTION PANEL 2018-11-15 04:40:00 Maru Pearson [facility] PROTHROMBIN TIME/INR 2018-11-15 04:40:00 Dariela Pearson [facility] BASIC METABOLIC PANEL (7) 2018-11-15 04:40:00 Al Stephens [facility] PHOSPHORUS 2018-11-15 04:40:00 Karen Dorantes [facility] CBC W/PLT COUNT & AUTO DIFFERENTIAL 2018-11-15 04:40:00 [facility] LEUKO-REDUCED RBC 2018-11-14 23:54:00 Panchito Hicks [facility] TRANSFUSION SERVICE REPORT - SCAN 2018-11-14 18:03:46 Provid er, Default Scanning [facility] IR TUNNELED DIALYSIS CATHETER 2018-11-14 12:38:00 Marlys Dorantes [facility] HEPATIC FUNCTION PANEL 2018-11-14 05:10:00 Maru Pearson [facility] PROTHROMBIN TIME/INR 2018-11-14 05:10:00 Dariela Pearson [facility] BASIC METABOLIC PANEL (7) 2018-11-14 05:10:00 Al Stephens [facility] CBC W/PLT COUNT & AUTO DIFFERENTIAL 2018-11-14 05:10:00 [facility] TRANSFUSE LEUKO-REDUCED RED BLOOD CELLS 2018-11-13 12:08:04 Panchito Arenas [facility] TYPE AND SCREEN, AUTOMATED 2018-11-13 08:34:00 Panchito Hicks [facility] HEMOGLOBIN AND HEMATOCRIT 2018-11-13 07:51:00 Panchito Hicks [facility] HEPATIC FUNCTION PANEL 2018-11-13 05:25:00 Maru Pearson [facility] PROTHROMBIN TIME/INR 2018-11-13 05:25:00 Dariela Pearson sofi [facility] BASIC METABOLIC PANEL (7) 2018-11-13 05:25:00 Al Stephens [facility] PHOSPHORUS 2018-11-13 05:25:00 Karen Dorantes [facility] CBC W/PLT COUNT & AUTO DIFFERENTIAL 2018-11-13 05:25:00 David Okeefe [facility] XR CHEST 2 VIEWS 2018-11-12 21:38:00 Afua Nguyen [facility] HEPATIC FUNCTION PANEL 2018-11-12 03:36:00 Maru Pearson [facility] PROTHROMBIN TIME/INR 2018-11-12 03:36:00 Dariela Pearson [facility] BASIC METABOLIC PANEL (7) 2018-11-12 03:36:00 Kat [facility] CBC W/PLT COUNT & AUTO DIFFERENTIAL 2018-11-12 03:36:00 David Okeefe aidee [facility] PROTEIN, RANDOM URINE 2018-11-12 01:55:00 Karen Dorantes [facility] CREATININE, RANDOM URINE 2018-11-12 01:55:00 Karen Dorantes [facility] HEPATIC FUNCTION PANEL 2018-11-11 03:46:00 Maru Pearsonbillie [facility] PROTHROMBIN TIME/INR 2018-11-11 03:46:00 Dariela Pearson [facility] BASIC METABOLIC PANEL (7) 2018-11-11 03:46:00 Kat Al [facility] CBC W/PLT COUNT & AUTO DIFFERENTIAL 2018-11-11 03:46:00 David Okeefe [facility] (CELLAVISION MANUAL DIFF) 2018-11-11 03:46:00 Yenifer Okeefe [facility] TRANSFUSION SERVICE REPORT - SCAN 2018-11-10 18:01:07 Provid er, Default Scanning [facility] REPORT OF PROCEDURE - ENDOSCOPY URL 2018-11-10 14:04:49 Alfred Lantigua [facility] TISSUE EXAM 2018-11-10 13:25:00 Devyn Lantigua [facility] COLONOSCOPY,BIOPSY 2018-11-10 13:00:00 Devyn Lantigua [facility] HEPATIC FUNCTION PANEL 2018-11-10 04:30:00 Maru Pearson [facility] PROTHROMBIN TIME/INR 2018-11-10 04:30:00 Dariela Pearson [facility] BASIC METABOLIC PANEL (7) 2018-11-10 04:30:00 Al Stephens [facility] CBC W/PLT COUNT & AUTO DIFFERENTIAL 2018-11-10 04:30:00 David Okeefe [facility] PREPARE LEUKO-REDUCED RBC 2018-11-09 23:54:00 Jeny Paredes V. [facility] URINALYSIS W/ REFLEX URINE CULTURE 2018-11-09 23:07:00 Maryellen Balderrama [facility] BLOOD CULTURE 2018-11-09 18:26:[address] [facility] TRANSFUSION SERVICE REPORT - SCAN 2018-11-09 18:02:25 Provid er, Default Scanning [facility] HEMODIALYSIS INPATIENT 2018-11-09 16:56:01 Matty Edmonds [facility] HEMODIALYSIS INPATIENT 2018-11-09 15:25:00 Karen Dorantes [facility] HEPATIC FUNCTION PANEL 2018-11-09 03:43:00 Maru Pearson [facility] PROTHROMBIN TIME/INR 2018-11-09 03:43:00 Dariela Pearson sofi [facility] BASIC METABOLIC PANEL (7) 2018-11-09 03:43:00 Al Stephens [facility] PHOSPHORUS 2018-11-09 03:43:00 Karen Dorantes [facility] CBC W/PLT COUNT & AUTO DIFFERENTIAL 2018-11-09 03:43:00 David Okeefe [facility] TRANSFUSE LEUKO-REDUCED RED BLOOD CELLS 2018-11-08 18:16:10 Michael boyle [facility] TRANSFUSE LEUKO-REDUCED RED BLOOD CELLS 2018-11-08 15:03:23 Michael boyle [facility] MISCELLANEOUS LAB ORDER 2018-11-08 14:39:00 Devyn Lantigua [facility] TYPE AND SCREEN, AUTOMATED 2018-11-08 09:26:00 [facility] 2018-11-08 04:21:[address] [facility] BASIC METABOLIC PANEL (7) 2018-11-08 04:21:00 Al Stephens [facility] MAGNESIUM 2018-11-08 04:21:00 Kendal [facility] PHOSPHORUS 2018-11-08 04:21:00 Kendal [facility] YARI ANTIGEN WITH REFLEX TO TITER 2018-11-08 04:20:00 Devyn Lantigua [facility] PROTHROMBIN TIME/INR 2018-11-08 04:20:00 Dariela Pearson [facility] YARI ANTIGEN TITER 2018-11-08 04:20:00 Devyn Lantigua [facility] CBC W/PLT COUNT & AUTO DIFFERENTIAL 2018-11-08 04:20:00 aDvid Okeefe [facility] CT CHEST WITH HIGH RESOLUTION/ILD 2018-11-08 00:16:00 Lizz Lantigua [facility] MR ABDOMEN WITH & WITHOUT IV CONTRAST 2018-11-07 18:45:00 Devyn Lantigua [facility] HEPATIC FUNCTION PANEL 2018-11-07 05:24:00 Maru Pearson [facility] PROTHROMBIN TIME/INR 2018-11-07 05:24:00 Dariela Pearson sofi [facility] BASIC METABOLIC PANEL (7) 2018-11-07 05:24:00 [facility] CBC W/PLT COUNT & AUTO DIFFERENTIAL 2018-11-07 05:24:00 David Okeefeaidee [facility] (CELLAVISION MANUAL DIFF) 2018-11-07 05:24:00 SaryYenifer [facility] HEPATIC FUNCTION PANEL 2018-11-06 03:32:00 Maru Pearson [facility] PROTHROMBIN TIME/INR 2018-11-06 03:32:00 Dariela Pearson sofi [facility] BASIC METABOLIC PANEL (7) 2018-11-06 03:32:00 Kat [facility] CBC W/PLT COUNT & AUTO DIFFERENTIAL 2018-11-06 03:32:00 SaryDavid Augustaidee [facility] (CELLAVISION MANUAL DIFF) 2018-11-06 03:32:00 Sary, Yenifersa De Paz a [facility] URINE CULTURE 2018-11-05 20:47:00 Reggie [facility] URINALYSIS W/ MICROSCOPIC 2018-11-05 20:47:00 Reggie [facility] XR CHEST 1 VIEW PORTABLE/BEDSIDE 2018-11-05 20:02:00 Mila Hicks [facility] HEPATITIS B SURFACE ANTIGEN 2018-11-05 15:32:00 Kendal [facility] HEPATITIS B SURFACE ANTIBODY 2018-11-05 15:32:00 Kendal [facility] HEPATITIS B CORE ANTIBODY, TOTAL 2018-11-05 15:32:00 Alber Edmonds [facility] IR NON-TUNNELED DIALYSIS CATHETER INSERTION 2018-11-05 12:10 :00 Kendal [facility] PT/APTT 2018-11-05 05:07:00 [facility] 2018-11-05 05:07:00 Maru Pearsonbillie [facility] PROTHROMBIN TIME/INR 2018-11-05 05:07:00 Dariela Pearson [facility] BASIC METABOLIC PANEL (7) 2018-11-05 05:07:00 Al Stephens [facility] MAGNESIUM 2018-11-05 05:07:00 Kendal [facility] PHOSPHORUS 2018-11-05 05:07:00 Kendal [facility] CBC W/PLT COUNT & AUTO DIFFERENTIAL 2018-11-05 05:07:00 David Okeefe [facility] (CELLAVISION MANUAL DIFF) 2018-11-05 05:07:00 Yenifer Okeefe a [facility] BLOOD CULTURE 2018-11-04 19:53:00 [facility] URINALYSIS W/ REFLEX URINE CULTURE 2018-11-04 19:52:00 [facility] AMMONIA 2018-11-04 12:42:00 Jeny [facility] HEPATIC FUNCTION PANEL 2018-11-04 03:47:00 Maru Pearson [facility] PROTHROMBIN TIME/INR 2018-11-04 03:47:00 Dariela Pearson sofi [facility] BASIC METABOLIC PANEL (7) 2018-11-04 03:47:00 Al Stephens [facility] MAGNESIUM 2018-11-04 03:47:00 Jeny [facility] CBC W/PLT COUNT & AUTO DIFFERENTIAL 2018-11-04 03:46:00 David Okeefe Hyunna [facility] (CELLAVISION MANUAL DIFF) 2018-11-04 03:46:00 Yenifer Okeefeunn a [facility] HEPATIC FUNCTION PANEL 2018-11-03 04:00:00 Maru Pearson [facility] PROTHROMBIN TIME/INR 2018-11-03 04:00:00 Dariela Pearson [facility] BASIC METABOLIC PANEL (7) 2018-11-03 04:00:00 Bat [facility] CBC W/PLT COUNT & AUTO DIFFERENTIAL 2018-11-03 04:00:00 David Okeefe Hyaidee [facility] HEPATIC FUNCTION PANEL 2018-11-02 05:22:00 Maru Pearson [facility] PROTHROMBIN TIME/INR 2018-11-02 05:22:00 Dariela Pearson [facility] BASIC METABOLIC PANEL (7) 2018-11-02 05:22:00 [facility] CBC W/PLT COUNT & AUTO DIFFERENTIAL 2018-11-02 05:22:00 [facility] 2018-11-01 05:24:00 Maru Pearson [facility] PROTHROMBIN TIME/INR 2018-11-01 05:24:00 Dariela Pearson sofi [facility] BASIC METABOLIC PANEL (7) 2018-11-01 05:24:00 [facility] CBC W/PLT COUNT & AUTO DIFFERENTIAL 2018-11-01 05:24:00 David Okeefe [facility] HEPATIC FUNCTION PANEL 2018-10-31 04:19:00 Maru Pearson [facility] PROTHROMBIN TIME/INR 2018-10-31 04:19:00 Dariela Pearson sofi [facility] BASIC METABOLIC PANEL (7) 2018-10-31 04:19:00 [facility] CBC W/PLT COUNT & AUTO DIFFERENTIAL 2018-10-31 04:19:00 [facility] Planned Activity Planned Date Details Comments Source Future Scheduled Test 2021-06-18 00:00:00 Lipid panel (proce dure) [code = 32489357] [facility] r Future Scheduled Test 2019-11-27 00:00:00 IMM Influenza Seas onal Nov to April (>/= 19 yrs) [code = IMM Influenza Seasonal Nov to April (>/= 19 yrs)] [facility] Scheduled Test 2019-10-28 00:00:00 INFLUENZA VACCINE (#1) [code = INFLUENZA VACCINE (#1)] [facility] r Future Scheduled Test 1984 00:00:00 PNEUMOCOCCAL VACCI NE 2-64 YEARS AT RISK (1 of 3 - PCV13) [code = PNEUMOCOCCAL VACCINE 2-64 YEARS AT RISK (1 of 3 - PCV13)] [facility] Instructions GI Bleeding [facility] Encounters Start Date/Time End Date/Time Encounter Type Admission Type [facility] Care Department Encounter ID Source 2018-01-28 08:27:07 Inpatient [facility] [id number] [facility] 2018-01-28 01:10:06 Inpatient [facility] [id number] [facility] 2018-01-27 00:00:00 Inpatient [facility] [id number] [facility] 2018-01-25 00:00:00 Inpatient [facility] [id number] [facility] 2019-10-18 10:09:00 2019-10-21 16:45:00 Discharged Inpatient 1 KHLOE BOX [facility] [id number] [facility] 2019-09-26 18:04:00 2019-09-27 19:03:00 Discharged Inpatient 1 KHLOE BOX [facility] [id number] [facility] 2019-01-09 00:00:00 2019-01-09 00:00:00 Outpatient [facility] [id number] [facility] 2018-10-16 12:41:00 2018-10-16 12:41:00 Registered Emergency Room [address] [facility] [id number] [facility] 2018-09-05 00:00:00 2018-09-05 00:00:00 Outpatient [facility] [id number] [facility] 2018-06-19 00:00:00 2018-06-19 00:00:00 Outpatient [facility] [id number] [facility] 2018-05-27 18:25:00 2018-06-01 07:30:00 Discharged Inpatient [address] [facility] [id number] [facility] 2018-01-30 00:00:00 2018-01-30 00:00:00 Outpatient [facility] [id number] [facility] 2018-01-29 00:00:00 2018-01-29 00:00:00 Outpatient [facility] [id number] [facility] 2018-01-24 21:17:42 2018-01-24 21:17:42 Emergency [facility] [id number] [facility] 2018-01-24 20:24:34 2018-01-24 20:24:34 Emergency [facility] [id number] [facility] 2018-01-24 17:21:24 2018-01-24 17:21:24 Inpatient [facility] [id number] [facility] Results Test Description Test Time Test Comments Results Result Comments Source CHEST SINGLE (PORTABLE) 2019-11-01 21:37:00 [place] [address] Patient Name: INDRA GALVAN JR MR #: [id number] : 1980 Age/Sex: 38/M Req #: [id number] Adm Physician: Ordered by: MARYLU KELSEY DO Report #: [id number] Location: ER Room/Bed: Procedure: [id number] DX/CHEST SINGLE (PORTABLE) Exam Date: 11/01/19 Exam Time: 2115 REPORT STATUS: Signed EXAMINATION: CHEST SINGLE (PORTABLE) INDICATION: Y liver cirrohsis [id number] 2115 COMPARISON: 10/18/2019 FINDINGS: AP view TUBES and LINES: Stable right IJ dialysis catheter. LUNGS: Lungs are well inflated. Mild left lower lung field hazy opacities. Mild central vascular congestion. PLEURA: No pleural effusion or pneumothorax. HEART AND MEDIASTINUM: The cardiac silhouette is enlarged. BONES AND SOFT TISSUES: No acute osseous lesion. Soft tissues are unremarkable. UPPER ABDOMEN: No free air under the diaphragm. IMPRESSION: Mild left lower lung field hazy opacities, representing atelectasis versus developing pneumonia in the appropriate clinical context. Enlarged cardiac silhouette and mild central vascular congestion. Signed by: Dr. Soham Casas MD on 11/01/2019 9:39 PM Dictated By: SOHAM CASAS MD 38 Transcribed By: CATERINA on 11/01/192138 COPY TO: MARYLU KELSEY, Urine color determination 2019-10-21 10:50:00 Test Item Urine Color (test code = 5778-6) ORANGE YELLOW [facility] Center[facility] yznmmkd4958-11-59 10:50:00* Test Item Value Reference Range Interpretation Comments Urine Clarity (test code = 13068-1) CLEAR CLEAR [facility] gravity of Urine by Test strip 2019-10-21 10:50:00* Test Item Value Reference Range Interpretation Comments Urine Specific [place] (test code = 5811-5) 1.015 1.010-1.02 5 [facility] CenterU[facility] pH measurement by automated test emsgf0657-82-80 10:50:00* Test Item Value Reference Range Interpretation Comments Urine pH (test code = 35802-5) 5.5 5-7 [facility] CenterU[facility] leukocyte esterase detection by kxhnatvi2784-75-45 10:50:00* Test Item Value Reference Range Interpretation Comments Urine Leukocyte Esterase (test code = 5799-2) NEGATIVE NEGATIVE [facility] CenterU[facility] nitrite gxeumplan7434-06-73 10:50:00* Test Item Value Reference Range Interpretation Comments Urine Nitrite (test code = 75280-0) NEGATIVE NEGATIVE [facility] CenterU[facility] protein measurement by test strip (mass/volume)2019-10-21 10:50:00* Test Item Value Reference Range Interpretation Comments Urine Protein (test code = 5804-0) 2+ NEGATIVE [facility] CenterU[facility] glucose mosalkupr4629-62-92 10:50:00* Test Item Value Reference Range Interpretation Comments Urine Glucose (UA) (test code = 2349-9) 1+ NEGATIVE [facility] CenterU[facility] ketones detection by automated test pbort0262-75-53 10:50:00* Test Item Value Reference Range Interpretation Comments Urine Ketones (test code = 57069-6) 1+ NEGATIVE [facility] CenterU[facility] urobilinogen measurement by test strip (mass/volume)2019-10-21 10:50:00* Test Item Value Reference Range Interpretation Comments Urine Urobilinogen (test code = 86110-7) 8 0.2-1 [facility] Center[facility] total bilirubin measurement (mass/volume)2019-10-21 10:50:00* Test Item Value Reference Range Interpretation Comments Urine Bilirubin (test code = 1978-6) LARGE NEGATIVE [facility] CenterU[facility] erythrocytes oxouvmjlt5572-32-86 10:50:00* Test Item Value Reference Range Interpretation Comments Urine Blood (test code = 58011-7) LARGE NEGATIVE [facility] CenterAutomated urine sediment leukocyte count by microscopy (number/high power field)2019-10-21 10:50:00* Test Item Value Reference Range Interpretation Comments Urine WBC (test code = 5821-4) 0-5 0-5 [facility] CenterErythrocytes detection in urine sediment by light wkbbboujcg9305-14-57 10:50:00* Test Item Value Reference Range Interpretation Comments Urine RBC (test code = 64990-5) >50 0-5 [facility] CenterBacteria detection in urine sediment by light hlmdeqccvk0644-58-76 10:50:00* Test Item Value Reference Range Interpretation Comments Urine Bacteria (test code = 98297-1) MANY NONE [facility] CenterEpithelial cells detection in urine sediment by light bgpgfrvpro8207-23-75 10:50:00* Test Item Value Reference Range Interpretation Comments Urine Epithelial Cells (test code = 59253-4) MODERATE NONE [facility] or plasma total bilirubin measurement (mass/volume)2019-10-21 10:26:00* Test Item Value Reference Range Interpretation Comments Total Bilirubin (test code = 1975-2) > 25.0 0.2-1.2 [facility] or plasma conjugated bilirubin measurement (mass/volume)2019-10-21 10:26:00* Test Item Value Reference Range Interpretation Comments Direct Bilirubin (test code = 44477-0) > 15.0 0.0-0.5 [facility] or plasma indirect bilirubin measurement (mass/volume)2019-10-21 10:26:00* Test Item Value Reference Range Interpretation Comments Indirect Bilirubin (test code = 1971-1) 10.0 0.3-1.2 [facility] or plasma sodium measurement (moles/volume)2019-10-21 05:20:00* Test Item Value Reference Range Interpretation Comments Sodium Level (test code = 2951-2) 129 136-145 [facility]um or plasma potassium measurement (moles/volume)2019-10-21 05:20:00* Test Item Value Reference Range Interpretation Comments Potassium Level (test code = 2823-3) 3.8 3.5-5.1 [facility] or plasma chloride measurement (moles/volume)2019-10-21 05:20:00* Test Item Value Reference Range Interpretation Comments Chloride Level (test code = 2075-0) 97 98-107 [facility] or plasma carbon dioxide, total measurement (moles/volume)2019-10-21 05:20:00* Test Item Value Reference Range Interpretation Comments Carbon Dioxide Level (test code = 2028-9) 19 22-29 [facility]um or plasma anion vsy6350-47-43 05:20:00* Test Item Value Reference Range Interpretation Comments Anion Gap (test code = 73075-4) 16.8 8-16 [facility] or plasma urea nitrogen measurement (mass/volume)2019-10-21 05:20:00* Test Item Value Reference Range Interpretation Comments Blood Urea Nitrogen (test code = 3094-0) 30 7-26 [facility] or plasma creatinine measurement (mass/volume)2019-10-21 05:20:00* Test Item Value Reference Range Interpretation Comments Creatinine (test code = 2160-0) 3.84 0.72-1.25 [facility] or plasma urea nitrogen/creatinine mass bendz5366-15-63 05:20:00* Test Item Value Reference Range Interpretation Comments BUN/Creatinine Ratio (test code = 3097-3) 8 6-25 [facility] CenterEstimated glomerular filtration rate (GFR) bsyoxoazscimz0462-28-14 05:20:00* Test Item Value Reference Range Interpretation Comments Estimat Glomerular Filtration Rate (test code = 042459791) 18 >60 Ranges were taken from the National Kidney Disease Education Program and the [facility] literature.Reference ranges:60 or greater: Wkzcmr68-49 ( for 3 consecutive months): Chronic kidney disease 15 or less: Kidney failureNorth [facility] Medical CenterGlucose ahfnlgdwhij2502-31-40 05:20:00* Test Item Value Reference Range Interpretation Comments Glucose Level (test code = ORE4669) 192 74-118 [facility] or plasma calcium measurement (mass/volume)2019-10-21 05:20:00* Test Item Value Reference Range Interpretation Comments Calcium Level (test code = 06473-2) 7.9 8.4-10.2 [facility] CenterFluoroscopic procedure less than one hour mmgefwwu5383-75-34 05:20:00* Test Item Value Reference Range Interpretation Comments Aspartate Amino Transf (AST/SGOT) (test code = Aspartate Amino Transf (AST/SGOT)) 59 5-34 [facility] or plasma alanine aminotransferase measurement (enzymatic activity/volume)2019-10-21 05:20:00* Test Item Value Reference Range Interpretation Comments Alanine Aminotransferase (ALT/SGPT) (test code = 1742-6) 17 0-55 [facility] or plasma protein measurement (mass/volume)2019-10-21 05:20:00* Test Item Value Reference Range Interpretation Comments Total Protein (test code = 2885-2) 5.5 6.5-8.1 [facility] or plasma albumin measurement (mass/volume)2019-10-21 05:20:00* Test Item Value Reference Range Interpretation Comments Albumin (test code = 1751-7) 2.2 3.5-5.0 [facility] CenterPlasma globulin measurement (mass/volume) 2019-10-21 05:20:00* Test Item Value Reference Range Interpretation Comments Globulin (test code = 52115-4) 3.3 2.3-3.5 [facility] or plasma albumin/globulin mass arnrs2950-22-00 05:20:00* Test Item Value Reference Range Interpretation Comments Albumin/Globulin Ratio (test code = 1759-0) 0.7 0.8-2.0 [facility] or plasma alkaline phosphatase measurement (enzymatic activity/volume)2019-10-21 05:20:00* Test Item Value Reference Range Interpretation Comments Alkaline Phosphatase (test code = 6768-6) 128 40-150 [facility] CenterBlood leukocytes automated count (number/volume)2019-10-21 05:15:00* Test Item Value Reference Range Interpretation Comments White Blood Count (test code = 6690-2) 12.24 4.8-10.8 [facility] CenterBlood erythrocytes automated count (number/volume)2019-10-21 05:15:00* Test Item Value Reference Range Interpretation Comments Red Blood Count (test code = 789-8) 2.18 4.3-5.7 [facility] CenterBlood hemoglobin measurement (moles/volume)2019-10-21 05:15:00* Test Item Value Reference Range Interpretation Comments Hemoglobin (test code = 13136-2) 7.8 14.0-18.0 [facility] CenterAutomated blood hematocrit (volume fraction)2019-10-21 05:15:00* Test Item Value Reference Range Interpretation Comments Hematocrit (test code = 4544-3) 21.7 38.2-49.6 [facility] CenterAutomated erythrocyte mean corpuscular ilmgab6314-53-35 05:15:00* Test Item Value Reference Range Interpretation Comments Mean Corpuscular Volume (test code = 787-2) 99.5 81-99 [facility] CenterAutomated erythrocyte mean corpuscular hemoglobin (mass per erythrocyte)2019-10-21 05:15:00* Test Item Value Reference Range Interpretation Comments Mean Corpuscular Hemoglobin (test code = 785-6) 35.8 28-32 [facility] CenterAutomated erythrocyte mean corpuscular hemoglobin concentration measurement (mass/volume)2019-10-21 05:15:00* Test Item Value Reference Range Interpretation Comments Mean Corpuscular Hemoglobin Concent (test code = 786-4) 35.9 31-35 [facility] CenterRDW RtfAr-Zyh6885-58-25 05:15:00* Test Item Value Reference Range Interpretation Comments Red Cell Distribution Width (test code = 41210-4) 19.4 11.7 -14.4 [facility] CenterAutomated blood platelet count (count/volume)2019-10-21 05:15:00* Test Item Value Reference Range Interpretation Comments Platelet Count (test code = 777-3) 103 140-360 [facility] CenterAutunc healthed blood segmented neutrophil count as percentage of total xsqoehsitz5958-95-01 05:15:00* Test Item Value Reference Range Interpretation Comments Neutrophils (%) (Auto) (test code = 21067-8) 91.7 38.7-80.0 [facility] CenterAutomated blood lymphocyte count as percentage ot total vqsqiuqpxa9937-05-32 05:15:00* Test Item Value Reference Range Interpretation Comments Lymphocytes (%) (Auto) (test code = 736-9) 3.9 18.0-39.1 [facility] CenterAutomated blood monocyte count as percentage of total sdvhoqibsw4480-56-42 05:15:00* Test Item Value Reference Range Interpretation Comments Monocytes (%) (Auto) (test code = 5905-5) 3.3 4.4-11.3 [facility] CenterAutomated blood eosinophil count as percentage of total kofpmldjzb6519-35-24 05:15:00* Test Item Value Reference Range Interpretation Comments Eosinophils (%) (Auto) (test code = 713-8) 0.0 0.0-6.0 [facility] CenterAutomated blood basophil count as percentage of total hsoseewlog5483-00-94 05:15:00* Test Item Value Reference Range Interpretation Comments Basophils (%) (Auto) (test code = 706-2) 0.2 0.0-1.0 [facility] CenterFluoroscopic procedure less than one hour aadnnuqb1950-32-59 05:15:00* Test Item Value Reference Range Interpretation Comments IM GRANULOCYTES % (test code = IM GRANULOCYTES %) 0.9 0.0- 1.0 [facility] CenterAutomated blood neutrophil count 2019-10-21 05:15:00* Test Item Value Reference Range Interpretation Comments Neutrophils # (Auto) (test code = 751-8) 11.2 2.1-6.9 [facility] CenterBlood lymphocytes count (number/volume) 2019-10-21 05:15:00* Test Item Value Reference Range Interpretation Comments Lymphocytes # (Auto) (test code = 65584-3) 0.5 1.0-3.2 [facility] CenterBlst. [facility] monocytes automated count (number/volume)2019-10-21 05:15:00* Test Item Value Reference Range Interpretation Comments Monocytes # (Auto) (test code = 742-7) 0.4 0.2-0.8 [facility] CenterAutomated blood eosinophil count 2019-10-21 05:15:00* Test Item Value Reference Range Interpretation Comments Eosinophils # (Auto) (test code = 711-2) 0.0 0.0-0.4 [facility] CenterAutomated blood basophil count (count/volume)2019-10-21 05:15:00* Test Item Value Reference Range Interpretation Comments Basophils # (Auto) (test code = 704-7) 0.0 0.0-0.1 [facility] CenterFluoroscopic procedure less than one hour ayueatbt3421-80-76 05:15:00* Test Item Value Reference Range Interpretation Comments Absolute Immature Granulocyte (auto (doug t code = Absolute Immature Granulocyte (auto) 0.11 0-0.1 [facility] CenterFluoroscopic procedure less than one hour dboagrff8987-19-67 05:15:00* Test Item Value Reference Range Interpretation Comments Differential Total Cells Counted (test code = Marcia tial Total Cells Counted) 100 [facility] blood neutrophils/100 leukocytes 2019-10-21 05:15:00* Test Item Value Reference Range Interpretation Comments Neutrophils % (Manual) (test code = 64040-6) 95 40-74 [facility] blood lymphocytes/100 leukocytes 2019-10-21 05:15:00* Test Item Value Reference Range Interpretation Comments Lymphocytes % (Manual) (test code = 737-7) 3 19-48 [facility] blood monocytes/100 leukocytes 2019-10-21 05:15:00* Test Item Value Reference Range Interpretation Comments Monocytes % (Manual) (test code = 744-3) 2 3.4-9.0 [facility] platelets count by estimate (number/volume)2019-10-21 05:15:00* Test Item Value Reference Range Interpretation Comments Platelet Estimate (test code = 49397-6) SLIGHTLY DECREASED [facility] CenterPlatelet siakucmpef1429-22-46 05:15:00* Test Item Value Reference Range Interpretation Comments Platelet Morphology Comment (test code = 63076-5) NORMAL [facility] anisocytosis detection by light bdzfeeirdx3462-08-46 05:15:00* Test Item Value Reference Range Interpretation Comments Anisocytosis (test code = 702-1) SLIGHT [facility] CenterBlst. [facility] macrocytes detection by light tofzcmmtvy3952-11-89 05:15:00* Test Item Value Reference Range Interpretation Comments Macrocytosis (test code = 738-5) SLIGHT [facility] dacrocytes detection by light rjnzryuinc1326-55-67 05:15:00* Test Item Value Reference Range Interpretation Comments Tear Drop Cells (test code = 7791-7) FEW [facility] CenterRBC rqpzzvjker8388-92-48 05:15:00* Test Item Value Reference Range Interpretation Comments Red Cell Morphology Comment (test code = 6742-1) NORMAL [facility] G[facility]ED TGARKIWFKIEC5457-34-63 09:52:00 [facility] [address] [address] Patient Name: INDRA GALVAN JR MR #: [id number] : Age/Sex: 38/M Req #: [id number] Adm Physician: KHLOE BOX MD Ordered by: MORGAN ROBERTSON MD Report #: [id number] Location: ICU Room/Bed: ICU [facility] Procedure: [id number] US /US GUIDED PARACENTESIS Exam Date: 10/19/19 Exam Fernando e: 1714 REPORT STATUS: Signed Da te and Time: 10/19/19 Procedure: 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 Implants: None COmplications: No immediate COndition at completion: Stable. Disposition: remain in ICU DISCUSSION: Infor med consent was obtained and documented in the medical record. Right abd omen was prepped and draped in the standard sterile fashion. 1% lidocaine was infiltrated into the skin and subcutaneous tissues for local anesthesia. Under continuous ultrasound guidance a 5 Fr CBLPath needle catheter was advanced into the peritoneal space and a permanent sonographic image was stored. The catheter was advanced off the needle and connected to vacuum bottle with subse quent evacuation of 4100 cc kamila-colored fluid. Catheter was removed and a s terile dressing was applied. Patient tolerated the procedure without immediat e complication. IMPRESSION: Successful ultrasound guided paracentesis with evacuation of 4100 cc kamila fluid. Specimen was submitted f or laboratory analysis as requested. Signed by: Dr. Kirt Cooper M.D. on 10/20/2019 9:57 AM Dictated By: KIRT COOPER MD 6 Transcribed By: CATERINA on 10/20/19956 COPY TO: MORGAN ROBERTSON MD Phosphorus rizwncmscgi4466-35-69 04:30:00* Test Item Value Reference Range Interpretation Comments Phosphorus Level (test code = KNC5181) 1.8 2.3-4.7 [facility]ano[facility]um or plasma thyrotropin measurement by detection limit <= 0.005 miu/l (units/volume)2019-10-20 04:30:00* Test Item Value Reference Range Interpretation Comments Thyroid Stimulating Hormone (TSH) (test code = 78632-6) 0.766 0.350-4.940 [facility] Planopecimen source identification of body gxctg4346-20-54 20:37:00* Test Item Value Reference Range Interpretation Comments Body Fluid Type (test code = 17552-5) PERITONEAL [facility] CenterEvaluation of color of body fluid 2019-10-19 20:37:00* Test Item Value Reference Range Interpretation Comments Body Fluid Color (test code = 6824-7) RED AMBERNorth [facility] Medical CenterDetermination of appearance of body doyml6576-69-16 20:37:00* Test Item Value Reference Range Interpretation Comments Body Fluid Appearance (test code = 9335-1) CLOUDY [facility] CenterM[facility] body fluid leukocytes count (number/volume)2019-10-19 20:37:00* Test Item Value Reference Range Interpretation Comments Body Fluid WBC (test code = 6743-9) 88 [facility] body fluid erythrocytes count (number/volume)2019-10-19 20:37:00* Test Item Value Reference Range Interpretation Comments Body Fluid RBC (test code = 6741-3) 2375 [facility] body fluid neutrophils/100 zwthjdtiqw1895-73-47 20:37:00* Test Item Value Reference Range Interpretation Comments Body Fluid Neutrophils (test code = 59138-5) 20 [facility] CenterBody fluid lymphocyte nhlcn2719-81-69 20:37:00* Test Item Value Reference Range Interpretation Comments Body Fluid Lymphocytes (test code = 61495573) 65 [facility] CenterBody fluid monocyte hhrls1817-22-04 20:37:00* Test Item Value Reference Range Interpretation Comments Body Fluid Monocytes (test code = 53847-4) 5 [facility] CenterBody fluid other cells manual count 2019-10-19 20:37:00* Test Item Value Reference Range Interpretation Comments Body Fluid Other Cells (test code = 188251039) 10 [facility] CenterTotal cell yyhsh2711-63-91 20:37:00* Test Item Value Reference Range Interpretation Comments Body Fluid Total Cells Counted (test code = 04151-4) 100 [facility] CenterProthrombin time (PT) in platelet poor plasma by coagulation xphud8838-71-25 05:55:00* Test Item Value Reference Range Interpretation Comments Prothrombin Time (test code = 5902-2) 19.4 11.9-14.5 [facility] CenterINR in Platelet poor plasma by Coagulation czjaa4116-37-72 05:55:00* Test Item Value Reference Range Interpretation Comments Prothromb Time International Ratio (test code = 6301-6) 1.54 Oral Anticoagulant Therapy INR Values:1. Low Intensity Therapy 1.5 - 2.02 . Moderate Intensity Therapy 2.0 - 3.03. High Intensity Therapy(1) 2.5 - 3. 54. High Intensity Therapy(2) 3.0 - 4.05. Panic Value INR > 5.0 [facility]ano[facility]um or plasma sihuf-4-ebkmftoeytp.tumor marker measurement (mass/volume)2019-10-19 05:55:00* Test Item Value Reference Range Interpretation Comments Alpha Fetoprotein (test code = 75932-5) 4.1 0.0-8.3 [facility] [facility] Electrochemiluminescence Immunoassay(ECLIA)Values obtained wit h different assay methods or kits cannotbe used interchangeably. Results cannot be interpreted asabsolute evidence of the presence or absence of malignantdisea se.This test is not interpretable in females.Performed at: [facility] [id number] [place] [address] [id number] Director: Alli Georges MD, Phone: [phone] Scott and [facility] the [facility] Planoerum or plasma folate measurement (mass/volume)2019-10-19 05:55:00* Test Item Value Reference Range Interpretation Comments Folate (test code = 2284-8) >20.0 >3.0 A serum folate concentration of less than 3.1 ng/mL isconsidered to represent cl inical deficiency.Performed at: [facility] [address] [id number] Director: Alli Georges MD, Phone: [phone] Healthcare System-yOkq5113-38-26 21:45:00* Test Item Value Reference Range Interpretation Comments Ammonia (test code = 36922-4) 96 31-123 [facility]CT [facility]LVIS JO5185-00-28 20:02:00 [place] [address] Patient Name: INDRA GALVAN JR MR #: [id number] : Age/Sex: 38/M Req #: [id number] Adm Physician: KHLOE BOX MD Ordered by: MORGAN ROBERTSON MD Report #: [id number] Location: ICU Room/Bed: [place] [address] Procedure: [id number] CT /CT ABDOMEN/PELVIS WO Exam Date: 10/18/19 Exam Time: 1940 REPORT STATUS: Signed EXAM: CT Abdomen and Pelvis WITHOUT contrast INDICATION: GI bleed COMPAR QAMAR: Abdominal CT 10/16/2018. TECHNIQUE: Abdomen and pelvis were scanned utili zing a multidetector helical scanner from the lung base to the pubic symphysis without administration of IV contrast. Absence of intravenous contrast decrea ses sensitivity for detection of focal lesions and vascular pathology. Coronal and sagittal reformations were obtained. Routine protocol was performed. IV CONTRAST: None ORAL CONTRAST: None COMPLICATIONS: None RADIATION DOSE: Total DLP: 628 mGy*cm Estimated eff ective dose: (DLP x 0.015 x size factor) mSv CTDIvol has been reviewed. I t is below the limits set by the Radiation Protocol Committee (RPC). Do se modulation, iterative reconstruction, and/or weight based adjustment of the mA/kV was utilized to reduce the radiation dose to as low as reasonably achie vable. FINDINGS: LINES and TUBES: Superior approach central venous ca theter, tip in the right atrium.. LOWER THORAX: Low density blood within the left ventricular cavity. Coronary calcifications. Bibasilar atelectasis. HEPATOBILIARY: Nodular liver contour. An indeterminate 2.7 cm subtle hypode nse area in the superior right hepatic lobe (series 2 image 17) . No biliary ductal dilation. GALLBLADDER: Gallstones. No wall thickening or ove rdistention. SPLEEN: Splenomegaly. PANCREAS: No focal masses or ductal dilatation. ADRENALS: A 1.1 cm right adrenal nodule is similar compared to 2019. No left adrenal nodules KIDNEYS/URETERS: No hydronephrosis. No cystic or solid mass lesions. No stones. GI TRACT: Mild small and la rge intestinal wall thickening. Appendectomy clips. PELVIC ORGANS/BLADDER: Unremarkable. LYMPH NODES: No lymphadenopathy. VESSELS: Unremarkable. PERITONEUM / RETROPERITONEUM: Moderate volume ascites. No free air. ROMERO SHEFALI: Mild T10 vertebral body compression fracture. SOFT TISSUES: Unremarkab le. IMPRESSION: 1. Hepatic cirrhosis and portal hypertension w ith splenomegaly and moderate volume ascites, and portal congestive enterocolo richard. An indeterminate 2.7 cm subtle hypodense area in the superior right hep atic lobe. Recommend nonemergent multiphase contrast-enhanced liver MRI for fu rther catheterization. 2. Mild T10 vertebral body compression fracture, ap pears chronic but is new compared to 10/16/2018. 3. CT findings of anemia Signed by: Roberto Mccarthy DO on 10/18/2019 11:30 PM Dictated By: NATHALY MCCARTHY DO 233 0 Transcribed By: CATERINA on 10/18/19 2330 COPY TO: MORGAN ROBERTSON MD Automated reticulocyte count as percentage of total fjzdoaeswztk2717-72-98 19:40:00* Test Item Value Reference Range Interpretation Comments Percent Reticulocyte Count (test code = 78235-8) 5.3 0.8-2 .2 [facility]anoerum or plasma magnesium measurement (mass/volume)2019-10-18 19:40:00* Test Item Value Reference Range Interpretation Comments Magnesium Level (test code = 47636-5) 1.6 1.3-2.1 [facility]anoerum or plasma creatine kinase measurement (enzymatic activity/volume)2019-10-18 19:40:00* Test Item Value Reference Range Interpretation Comments Creatine Kinase (test code = 2157-6) 24 30-200 [facility]anoerum or plasma creatine kinase MB measurement (mass/volume)2019-10-18 19:40:00* Test Item Value Reference Range Interpretation Comments Creatine Kinase MB (test code = 25922-9) 0.40 0-5.0 [facility] CenterTroponin I measurement by highly sensitive enzyme opstdqnuass0405-75-74 19:40:00* Test Item Value Reference Range Interpretation Comments Troponin I (test code = 17311-1) 0.003 0-0.300 [facility] CenterCHEST SINGLE (PORTABLE)2019-10-18 14:56:00 [facility] [address] [place] [address] Patient Name: INDRA GALVAN JR MR #: [id number] : 1980 Age/Sex: 38/M Req #: [id number] Adm Physician: KHLOE BOX MD Ordered by: MARITZA SANTANA MD Report #: [id number] Location: ICU Room/Bed: ICU [facility] Procedure: [id number] DX/ CHEST SINGLE (PORTABLE) Exam Date: 10/18/19 Exam Fernando e: 09 REPORT STATUS: Signed EX AMINATION: CHEST SINGLE (PORTABLE) INDICATION: WEAKNESS COMPARIS ON: Chest radiograph 09-26-2019. FINDINGS: TUBES and LINES: Right I J tunneled hemodialysis catheter with tip at the cavoatrial junction. STEPHANIE GS: Low lung volumes. Central vascular congestion. No evidence of pulmonary ed josué. Linear and patchy opacity at the left lung base. PLEURA: No pleural effusion or pneumothorax. HEART AND MEDIASTINUM: The cardiomediastinal si lhouette is unremarkable. BONES AND SOFT TISSUES: No acute osseous les ion. Soft tissues are unremarkable. UPPER ABDOMEN: No free air under the diaphragm. IMPRESSION: Low lung volumes with central vascular conge stion. No evidence of pulmonary edema. Left basilar opacity, likely atelectasi s. Signed by: Dr. Sonia Mora MD on 10/18/2019 2:58 PM Dictated By: Anton MORA MD 57 Transcri bed By: CATERINA on 10/18/191457 COPY TO: MARITZA SANTANA MD ABDOMEN [id number] 14:43:00 [place] [address] Patient Name: INDRA GALVAN JR MR #: [id number] : 1980 Age/Sex: 38/M Req #: [id number] Adm Physician: KHLOE BOX MD Ordered by: MORGAN ROBERTSON MD Report #: [id number] Location: ICU Room/Bed: ICU [facility] Procedure: [id number] US /US ABDOMEN LIMITED Exam Date: 10/18/19 Exam Time: 1 337 REPORT STATUS: Signed EXAM: Right upper quadrant abdominal ultrasound INDICATION: Cirrhosis, ERCP. COMPARISON: Abdominal ultrasound 09-26-2019. TECHNIQUE: Transverse and long itudinal images of the right upper quadrant abdomen were obtained FINDING S: Liver: Size: 20.6 cm in the right midclavicular line Appearance: D iffusely echogenic with nodular contour. Mass: No focal masses Gallbladde r: Cholelithiasis. No distention, pericholecystic fluid, wall thickening, or r eported sonographic Cooper's sign. Gallbladder wall measures 0.28 cm. Bi le Ducts: Intrahepatic Ducts: No dilatation Extrahepatic Ducts: Common bile duct measures 0.4 cm, no dilatation Pancreas: Partially obscured. Partial ly visualized portions appear unremarkable. Kidney: The right kidney measur es 11.1 cm without evidence of hydronephrosis or stone. Vessels: Aorta : Visualized portions are normal. Partially obscured. Inferior Vena Cava: Visu alized portions are normal Main Portal Vein: 1.3 cm, dilated with hepatopetal flow. Free Fluid: Small to moderate volume ascites. IMPRESSION: Ch olelithiasis without evidence of cholecystitis. Cirrhotic liver with hepato megaly and findings of portal hypertension with small to moderate volume ascit es. Signed by: Dr. Sonia Mora MD on 10/18/2019 2:46 PM Dictated By: SONIA MORA MD 1446 Transcr ibed By: CATERINA on 10/18/19 144 COPY TO: MORGAN ROBERTSON MD Fluoroscopic procedure less than one hour ptibwzbd0707-95-55 11:38:00* Test Item Value Reference Range Interpretation Comments Coronavirus (PCR) (test code = Coronavirus (PCR)) NOT DETECTED NOTD ETECTED SARS-COV2/RT-PCRNegative results do not preclude SARS-CoV-2 infection and should not be used as the sole basis for patient management decisions. Negative results must be combined with clinical observations, patient history, and epidemiologi grupo information. A false negative result may occur if a specimen is improperly c ollected, transported or handled.The limit of detection for this assay is 250 co pies/mLThe SARS-CoV-2 test is a rapid, real-time RT-PCR test intended for the qu alitative detection of nucleic acid from SARS-CoV-2 in nasopharyngeal swab speci men collected from individuals suspected of COVID-19 by their healthcare provide r. This test has not been Food and Drug Administration (FDA) cleared or approved and has been authorized by FDA under an Emergency Use Authorization (EUA). This EUA will be effective until the declaration that circumstances exist justifying the authorization of the emergency use of in vitro diagnostic test for detection and or diagnosis of COVID-19 is terminated under section 564(b) of the Act, or the the EUA is revoked under 564(g) of the ACT.Testing performed by [address] [id number] [place], [place] [address]Activated partial thromboplastin time (aPTT) in platelet poor plasma by coagulation brfjg1907-61-33 08:58:00* Test Item Value Reference Range Interpretation Comments Activated Partial Thromboplast Time (test code = 68536-3) 46.5 23.8-35.5 [facility]anoerum or plasma iron measurement (mass/volume)2019-10-18 08:58:00* Test Item Value Reference Range Interpretation Comments Iron Level (test code = 2498-4) 125 65-175 [facility]anoerum or plasma iron binding capacity measurement (mass/volume)2019-10-18 08:58:00* Test Item Value Reference Range Interpretation Comments Total Iron Binding Capacity (test code = 2500-7) 122 261-4 78 [facility]anoerum or plasma iron saturation measurement (mass fraction)2019-10-18 08:58:00* Test Item Value Reference Range Interpretation Comments Percent Iron Saturation (test code = 2502-3) 102 15-50 [facility]anoerum or plasma transferrin measurement (mass/volume)2019-10-18 08:58:00* Test Item Value Reference Range Interpretation Comments Transferrin (test code = 3034-6) 87 174-364 [facility]anoerum or plasma ferritin measurement (mass/volume)2019-10-18 08:58:00* Test Item Value Reference Range Interpretation Comments Ferritin (test code = 2276-4) 1212.14 21.81-274.66 [facility] CenterBNP Lkj-jTub5170-59-22 08:58:00* Test Item Value Reference Range Interpretation Comments B-Type Natriuretic Peptide (test code = 92559-4) 1195.9 0-100 [facility] CenterBlood cobalamin (vitamin B12) measurement (mass/volume)2019-10-18 08:58:00* Test Item Value Reference Range Interpretation Comments Vitamin B12 Level (test code = 44110-0) 1331 213816 [facility]anoerum or plasma hepatitis A virus IgM antibody detection by slbjhzlfekp0955-08-91 08:58:00* Test Item Value Reference Range Interpretation Comments Hepatitis A IgM Antibody (test code = 16870-4) Negative Negativ e [facility]anoerum or plasma hepatitis B virus surface antigen detection by elngortmayj0585-88-27 08:58:00* Test Item Value Reference Range Interpretation Comments Hepatitis B Surface Antigen (test code = 5196-1) Negative Negat mumtaz [facility]anoerum or plasma hepatitis B virus core IgM antibody detection by anarrhxqkch3736-67-90 08:58:00* Test Item Value Reference Range Interpretation Comments Hepatitis B Core IgM Antibody (test code = 90120-1) Negative Ne gative [facility]anoerum hepatitis C virus antibody heexbuotf4233-34-53 08:58:00* Test Item Value Reference Range Interpretation Comments Hepatitis C Antibody (test code = 15441-5) 0.1 0.0-0.9 Negative: < 0.8 Indeterminate: 0.8 - 0.9 Positive: > 0.9 The CDC recommends that a positive HCV antibody result be followed up with a HCV Nucleic Acid Amplification test (088838).Performed at: [address] [id number] Director: Alli Georges MD, Phone: [phone] [facility] Medical CenterBlood leukocytes automated count (number/volume)2019-09-27 05:45:00* Test Item Value Reference Range Interpretation Comments White Blood Count (test code = 6690-2) 7.33 4.8-10.8 [facility] CenterBlood erythrocytes automated count (number/volume)2019-09-27 05:45:00* Test Item Value Reference Range Interpretation Comments Red Blood Count (test code = 789-8) 1.71 4.3-5.7 [facility] CenterBlood hemoglobin measurement (moles/volume)2019-09-27 05:45:00* Test Item Value Reference Range Interpretation Comments Hemoglobin (test code = 67568-7) 6.0 14.0-18.0 Results called to CINTHYA TOVAR at 0637 on 09/27/19 by Roland Gore. RB [place]. [facility] CenterAutomated blood hematocrit (volume fraction)2019-09-27 05:45:00* Test Item Value Reference Range Interpretation Comments Hematocrit (test code = 4544-3) 17.7 38.2-49.6 Results called to CINTHYA TOVAR at 0637 on 09/27/19 by Roland Gore. [place]. [facility] CenterAutomated erythrocyte mean corpuscular emhvat0983-32-97 05:45:00* Test Item Value Reference Range Interpretation Comments Mean Corpuscular Volume (test code = 787-2) 103.5 81-99 [facility] CenterAutomated erythrocyte mean corpuscular hemoglobin (mass per erythrocyte)2019-09-27 05:45:00* Test Item Value Reference Range Interpretation Comments Mean Corpuscular Hemoglobin (test code = 785-6) 35.1 28-32 [facility] CenterAutomated erythrocyte mean corpuscular hemoglobin concentration measurement (mass/volume)2019-09-27 05:45:00* Test Item Value Reference Range Interpretation Comments Mean Corpuscular Hemoglobin Concent (test code = 786-4) 33.9 31-35 [facility] CenterRDW VzoOh-Yik7013-13-01 05:45:00* Test Item Value Reference Range Interpretation Comments Red Cell Distribution Width (test code = 14672-0) 19.9 11.7 -14.4 [facility] CenterAutomated blood platelet count (count/volume)2019-09-27 05:45:00* Test Item Value Reference Range Interpretation Comments Platelet Count (test code = 777-3) 108 140-360 [facility] CenterAutomated blood segmented neutrophil count as percentage of total xesuwqpsyx1059-08-00 05:45:00* Test Item Value Reference Range Interpretation Comments Neutrophils (%) (Auto) (test code = 01915-5) 74.2 38.7-80.0 [facility] lymphocyte count as percentage ot total tvhjergzwo2484-90-48 05:45:00* Test Item Value Reference Range Interpretation Comments Lymphocytes (%) (Auto) (test code = 736-9) 8.6 18.0-39.1 [facility] CenterAutomated blood monocyte count as percentage of total qgueuahayl5857-47-82 05:45:00* Test Item Value Reference Range Interpretation Comments Monocytes (%) (Auto) (test code = 5905-5) 12.3 4.4-11.3 [facility] CenterAutunc healthed blood eosinophil count as percentage of total fakfxqerbu8752-93-76 05:45:00* Test Item Value Reference Range Interpretation Comments Eosinophils (%) (Auto) (test code = 713-8) 2.7 0.0-6.0 [facility] CenterAutomated blood basophil count as percentage of total haxdirlwsl5067-09-72 05:45:00* Test Item Value Reference Range Interpretation Comments Basophils (%) (Auto) (test code = 706-2) 0.7 0.0-1.0 [facility] CenterFluoroscopic procedure less than one hour marfdoph8748-52-89 05:45:00* Test Item Value Reference Range Interpretation Comments IM GRANULOCYTES % (test code = IM GRANULOCYTES %) 1.5 0.0- 1.0 [facility] CenterAutomated blood neutrophil count 2019-09-27 05:45:00* Test Item Value Reference Range Interpretation Comments Neutrophils # (Auto) (test code = 751-8) 5.4 2.1-6.9 [facility] CenterBlood lymphocytes count (number/volume) 2019-09-27 05:45:00* Test Item Value Reference Range Interpretation Comments Lymphocytes # (Auto) (test code = 20292-6) 0.6 1.0-3.2 [facility] CenterBlood monocytes automated count (number/volume)2019-09-27 05:45:00* Test Item Value Reference Range Interpretation Comments Monocytes # (Auto) (test code = 742-7) 0.9 0.2-0.8 [facility] CenterAutomated blood eosinophil count 2019-09-27 05:45:00* Test Item Value Reference Range Interpretation Comments Eosinophils # (Auto) (test code = 711-2) 0.2 0.0-0.4 [facility] CenterAutomated blood basophil count (count/volume)2019-09-27 05:45:00* Test Item Value Reference Range Interpretation Comments Basophils # (Auto) (test code = 704-7) 0.1 0.0-0.1 [facility] CenterFluoroscopic procedure less than one hour uzfruzbx7626-75-79 05:45:00* Test Item Value Reference Range Interpretation Comments Absolute Immature Granulocyte (auto (doug t code = Absolute Immature Granulocyte (auto) 0.11 0-0.1 [facility]anoerum or plasma sodium measurement (moles/volume)2019-09-27 05:45:00* Test Item Value Reference Range Interpretation Comments Sodium Level (test code = 2951-2) 136 136-145 [facility]anoerum or plasma potassium measurement (moles/volume)2019-09-27 05:45:00* Test Item Value Reference Range Interpretation Comments Potassium Level (test code = 2823-3) 3.2 3.5-5.1 [facility]anoerum or plasma chloride measurement (moles/volume)2019-09-27 05:45:00* Test Item Value Reference Range Interpretation Comments Chloride Level (test code = 2075-0) 102 98-107 [facility]anoerum or plasma carbon dioxide, total measurement (moles/volume)2019-09-27 05:45:00* Test Item Value Reference Range Interpretation Comments Carbon Dioxide Level (test code = 2028-9) 28 22-29 [facility]anoerum or plasma anion rjw3572-85-22 05:45:00* Test Item Value Reference Range Interpretation Comments Anion Gap (test code = 26360-0) 9.2 8-16 [facility]anoerum or plasma urea nitrogen measurement (mass/volume)2019-09-27 05:45:00* Test Item Value Reference Range Interpretation Comments Blood Urea Nitrogen (test code = 3094-0) 11 7-26 [facility]anoerum or plasma creatinine measurement (mass/volume)2019-09-27 05:45:00* Test Item Value Reference Range Interpretation Comments Creatinine (test code = 2160-0) 2.29 0.72-1.25 [facility]anoerum or plasma urea nitrogen/creatinine mass wcsdw2827-05-98 05:45:00* Test Item Value Reference Range Interpretation Comments BUN/Creatinine Ratio (test code = 3097-3) 5 6-25 [facility] CenterEstimated glomerular filtration rate (GFR) mjtgjczvafbkl1365-19-14 05:45:00* Test Item Value Reference Range Interpretation Comments Estimat Glomerular Filtration Rate (test code = 253374835) 32 >60 Ranges were taken from the National Kidney Disease Education Program and the [facility] Kidney Foundation literature.Reference ranges:60 or greater: Bfkdyi91-93 ( for 3 consecutive months): Chronic kidney disease 15 or less: Kidney failureNorth Texas Medical CenterGlucose mrmcdotldkz6063-71-93 05:45:00* Test Item Value Reference Range Interpretation Comments Glucose Level (test code = WWV6033) 109 74-118 [facility]anoerum or plasma calcium measurement (mass/volume)2019-09-27 05:45:00* Test Item Value Reference Range Interpretation Comments Calcium Level (test code = 56721-4) 7.9 8.4-10.2 [facility]anoerum or plasma iron measurement (mass/volume)2019-09-27 05:45:00* Test Item Value Reference Range Interpretation Comments Iron Level (test code = 2498-4) 70 65-175 [facility]anoerum or plasma iron binding capacity measurement (mass/volume)2019-09-27 05:45:00* Test Item Value Reference Range Interpretation Comments Total Iron Binding Capacity (test code = 2500-7) 118 261-4 78 [facility]anoerum or plasma iron saturation measurement (mass fraction)2019-09-27 05:45:00* Test Item Value Reference Range Interpretation Comments Percent Iron Saturation (test code = 2502-3) 59 15-50 [facility]anoerum or plasma transferrin measurement (mass/volume)2019-09-27 05:45:00* Test Item Value Reference Range Interpretation Comments Transferrin (test code = 3034-6) 84 174-364 [facility]anoerum or plasma ferritin measurement (mass/volume)2019-09-27 05:45:00* Test Item Value Reference Range Interpretation Comments Ferritin (test code = 2276-4) 565.91 21.81-274.66 [facility]anoerum or plasma total bilirubin measurement (mass/volume)2019-09-27 05:45:00* Test Item Value Reference Range Interpretation Comments Total Bilirubin (test code = 1975-2) 11.4 0.2-1.2 [facility] CenterFluoroscopic procedure less than one hour ktmarctv6580-83-19 05:45:00* Test Item Value Reference Range Interpretation Comments Aspartate Amino Transf (AST/SGOT) (test code = Aspartate Amino Transf (AST/SGOT)) 63 5-34 [facility]anoerum or plasma alanine aminotransferase measurement (enzymatic activity/volume)2019-09-27 05:45:00* Test Item Value Reference Range Interpretation Comments Alanine Aminotransferase (ALT/SGPT) (test code = 1742-6) 16 0-55 [facility] CenterAmmonia Ksv-lDok3697-70-01 05:45:00* Test Item Value Reference Range Interpretation Comments Ammonia (test code = 67618-8) 129 31-123 [facility]anoerum or plasma lactate dehydrogenase measurement (enzymatic activity/volume)2019-09-27 05:45:00* Test Item Value Reference Range Interpretation Comments Lactate Dehydrogenase (test code = 211931435) 160 125-220 [facility]anoerum or plasma protein measurement (mass/volume)2019-09-27 05:45:00* Test Item Value Reference Range Interpretation Comments Total Protein (test code = 2885-2) 5.8 6.5-8.1 [facility]anoerum or plasma albumin measurement (mass/volume)2019-09-27 05:45:00* Test Item Value Reference Range Interpretation Comments Albumin (test code = 1751-7) 2.4 3.5-5.0 [facility] CenterPlasma globulin measurement (mass/volume) 2019-09-27 05:45:00* Test Item Value Reference Range Interpretation Comments Globulin (test code = 52258-0) 3.4 2.3-3.5 [facility]anoerum or plasma albumin/globulin mass qikqi6388-08-09 05:45:00* Test Item Value Reference Range Interpretation Comments Albumin/Globulin Ratio (test code = 1759-0) 0.7 0.8-2.0 [facility]anoerum or plasma alkaline phosphatase measurement (enzymatic activity/volume)2019-09-27 05:45:00* Test Item Value Reference Range Interpretation Comments Alkaline Phosphatase (test code = 6768-6) 147 40-150 [facility]anoerum or plasma lactate dehydrogenase measurement (enzymatic activity/volume)2019-09-27 05:45:00* Test Item Value Reference Range Interpretation Comments Lactate Dehydrogenase (test code = 908598055) 160 125-220 [facility] CenterQualitative serum or plasma hepatitis B virus e antibody by enzyme zccrizptiqa5676-70-25 05:45:00* Test Item Value Reference Range Interpretation Comments Hepatitis Be Antibody (test code = 35342-9) Negative Negative Performed at: [address] [id number] Manager Occupational: Esdras Lemon MD, Phone: [phone] Scott and White the Heart Hospital – Planoerum hepatitis B virus e antigen detection by enzyme immunoassay 2019-09-27 05:45:00* Test Item Value Reference Range Interpretation Comments Hepatitis Be Antigen (test code = 35832-2) Negative Negative Performed at: HD - [facility] [address] [place], [place] [address]Tth Director: Alli Georges MD, Phone: [phone] Texas Medical CenterUS ABDOMEN VJRBBDMW8911-45-03 20:45:00 [facility] [address] [address] Patient Name: INDRA GALVAN JR MR #: [id number] : 1980 Age/Sex: 38/M Req #: [id number] Adm Physician: KHLOE BOX MD Ordered by: LITZY FRYE, VIRGILIO FRYE Report #: [id number] Location: MED/SURG Room/Bed: [facility] Procedure: [id number] US /US ABDOMEN COMPLETE Exam Date: 09/26/19 [...] COPY TO: VIRGILIO GALEANA Stool gastrointestinal hemoglobin chlhqxceb4518-11-25 19:32:00* Test Item Value Reference Range Interpretation Comments Stool Occult Blood (test code = 2335-8) POSITIVE NEGATIVE [facility] Plan[facility] gastrointestinal hemoglobin iruzlxtku3089-28-04 19:32:00* Test Item Value Reference Range Interpretation Comments Stool Occult Blood (test code = 2335-8) POSITIVE NEGATIVE [facility] CenterBlood macrocytes detection by light pgmmuofsuh5182-49-24 11:40:00* Test Item Value Reference Range Interpretation Comments Macrocytosis (test code = 738-5) SLIGHT [facility] CenterAutomated reticulocyte count as percentage of total ygfyvsnxnboq4795-65-06 11:40:00* Test Item Value Reference Range Interpretation Comments Percent Reticulocyte Count (test code = 44585-7) 11.2 0.8-2 .2 [facility] CenterProthrombin time (PT) in platelet poor plasma by coagulation bwdoo1735-02-11 11:40:00* Test Item Value Reference Range Interpretation Comments Prothrombin Time (test code = 5902-2) 20.0 11.9-14.5 [facility] CenterINR in Platelet poor plasma by Coagulation sbvya9263-22-37 11:40:00* Test Item Value Reference Range Interpretation Comments Prothromb Time International Ratio (test code = 6301-6) 1.60 Oral Anticoagulant Therapy INR Values:1. Low Intensity Therapy 1.5 - 2.02 . Moderate Intensity Therapy 2.0 - 3.03. High Intensity Therapy(1) 2.5 - 3. 54. High Intensity Therapy(2) 3.0 - 4.05. Panic Value INR > 5.0 [facility] CenterActivated partial thromboplastin time (aPTT) in platelet poor plasma by coagulation uzlkf5043-92-87 11:40:00* Test Item Value Reference Range Interpretation Comments Activated Partial Thromboplast Time (test code = 60852-8) 39.4 23.8-35.5 [facility] Planoerum or plasma conjugated bilirubin measurement (mass/volume)2019-09-26 11:40:00* Test Item Value Reference Range Interpretation Comments Direct Bilirubin (test code = 59386-4) 7.7 0.0-0.5 [facility]anoerum or plasma indirect bilirubin measurement (mass/volume)2019-09-26 11:40:00* Test Item Value Reference Range Interpretation Comments Indirect Bilirubin (test code = 1971-1) 5.4 0.3-1.2 [facility]ano[facility]um or plasma creatine kinase measurement (enzymatic activity/volume)2019-09-26 11:40:00* Test Item Value Reference Range Interpretation Comments Creatine Kinase (test code = 2157-6) 22 30-200 [facility]anoerum or plasma creatine kinase MB measurement (mass/volume)2019-09-26 11:40:00* Test Item Value Reference Range Interpretation Comments Creatine Kinase MB (test code = 45594-5) 0.50 0-5.0 [facility] CenterTroponin I measurement by highly sensitive enzyme upilntanddk6021-11-69 11:40:00* Test Item Value Reference Range Interpretation Comments Troponin I (test code = 40126-3) 0.012 0-0.300 [facility] CenterBlood cobalamin (vitamin B12) measurement (mass/volume)2019-09-26 11:40:00* Test Item Value Reference Range Interpretation Comments Vitamin B12 Level (test code = 70031-5) 1410 213-816 [facility] CenterCHEST SINGLE (PORTABLE)2019-09-26 11:24:00 [facility] [address] [place] [address] Patient Name: INDRA GALVAN JR MR #: [id number] : 1980 Age/Sex: 38/M Req #: [id number] Adm Physician: Ordered by: MARYLU KELSEY DO Report #: [id number] Location: ER Room/Bed: Procedure: [id number] DX/CHEST SINGLE (PORTABLE) Exam Date: 09/26/19 Exam [...] 11:25 AM Dictated By: SRINIVASAN CHIANG MD 24 Transcribed By: CATERINA on 09/26/191124 COPY TO: MARYLU KELSEY DO MR, ABDOMEN, JBTW4543-65-06 12:54:00FINAL REPORT MRI of the abdomen with [...] of T10 vertebral b oliver. Signed: Gela Rodriguezort Verified Date/Time: 05/23/2019 12:54:18 Reading Location: [facility] C013X Ortho Consult Reading Room abdomen with/without [...] Rodriguez Verified Date/Time: 05/23/2019 12:54:18 Reading Location: [facility] C013X Ortho Consult Reading Room [facility] Metabolic Zwbst4338-92-47 09:34:00* Test Item Value Reference Range Interpretation [...] mg/dL 70-105 H Calcium (test code = 66345-8) 8.5 mg/dL 8.4-10.2 EGFR (test code = 14785-5) 25 mL/min/1.73 sq m ESTIMATED GFR IS NOT ACCURATE CREATININE CLEARANCE IN PREDICTING GLOMERULAR FILTRATION RATE. ESTIMATED GFR IS NOT APPLICABLE FOR DIALYSIS PATIENTS. PHILLIP (test code = PHILLIP) Surplus Property Disposal Agent ID - ROSIANGSpecimen moderately icte waldemar Lab Interpretation (test code = 04811-8) Abnormal [facility] METABOLIC HYJIP2326-60-40 09:34:00* Test Item Value Reference Range Interpretation [...] GFR IS NOT APPLICABLE FOR DIALYSIS PATIENTS. Surplus Property Disposal Agent ID - ROSASHLEYGSpecimen moderately ictericHepatic function wpibi1188-77-26 09:29:00* Test Item Value Reference Range Interpretation Comments Protein, Total (test code = 2885-2) 6.5 6.0- 8.3 gm/dL Albumin (test code = 08152-9) 3.4 g/dL 3.5-5 L Total Bilirubin (test code = 1975-2) 5.4 mg/dL 0.2-1.2 H Bilirubin, Direct (test code = 1968-7) 2.6 mg/dL 0.1-0.5 H Alkaline Phosphatase (test code = 6768-6) 200 U/L 40-150 H AST (test code = 1920-8) 46 U/L 5-34 H ALT (test code = 1742-6) 12 U/L 6-55 PHILLIP (test code = PHILLIP) Surplus Property Disposal Agent ID - ROSIANGSpecimen moderately icte waldemar Lab Interpretation (test code = 71845-1) Abnormal [facility] CenterHEPATIC FUNCTION KGPED7518-70-71 09:29:00* Test Item Value Reference Range Interpretation [...] (test code = 347) 12 U/L 6-55 Surplus Property Disposal Agent ID - ROSIANGSpecimen moderately ictericCBC with platelet count + automated kubk3582-47-69 09:27:00* Test Item Value Reference Range Interpretation [...] K/CU MM L MPV (test code = 76876-3) 8.4 fL 9.4-12.4 L nRBC (test code [...] % 0-1 Lab Interpretation (test code = 77594-5) Abnormal [facility] W/PLT COUNT & AUTO CDTZHLWVGIVO0777-64-66 09:27:00* Test Item Value Reference Range Interpretation [...] code = 2801) 0 % 0-1 Prothrombin time/CRX9356-27-77 09:19:00* Test Item Value Reference Range Interpretation [...] heart valves. Lab Interpretation (test code = 22494-6) Abnormal [facility] CenterPROTHROMBIN TIME/LTR5994-12-90 09:19:00* Test Item Value Reference Range Interpretation [...] patie nts wiht mechanical heart valves.MISCELLANEOUS LAB AKIMV7278-28-79 08:04:00* Test Item Value Reference Range Interpretation Comments SCAN RESULT (test code = 7758506) Treadmill tolerance(Non-Nuclear Treadmill)2019-05-15 22:24:56Interface, External Ris In - 05/15/2019 10:25 PM CDTProtocol Name Monty Time In Exercise Phase 00:01:00 Max. Systolic [...] Sera, Hi pinedo (8216) on 05/15/2019 10:24:47 [facility] CenterBASI METABOLIC ORRAR2603-88-88 11:48:00* Test Item Value Reference Range Interpretation [...] GFR IS NOT APPLICABLE FOR DIALYSIS PATIENTS. Surplus Property Disposal Agent ID - VIDYA MSpecimen slightly ictericBILIRUBIN, AMLVSJ8876-80-90 11:32:00* Test Item Value Reference Range Interpretation Comments BILIRUBIN DIRECT (BEAKER) (test code = 706) 2.0 mg/dL 0.1-0.5 H HEPATIC FUNCTION TXOBO7921-60-80 11:32:00* Test Item Value Reference Range Interpretation [...] (test code = 347) 8 U/L 6-55 Surplus Property Disposal Agent ID - VIDYA MSpecimen slightly ictericCBC W/PLT COUNT & AUTO JGYEEKSXYZPC6878-73-92 11:30:00* Test Item Value Reference Range Interpretation [...] code = 2801) 1 % 0-1 PROTHROMBIN TIME/DTF3571-57-99 11:25:00* Test Item Value Reference Range Interpretation [...] mechanical heart valves.Body fluid culture + gram abnzt9965-28-53 15:44:00* Test Item Value Reference Range Interpretation Comments Result (test code = 6463-4) No growth Gram Stain Result (test code = 1123) No organisms seen [facility] CenterBODY FLUID CULTURE + GRAM QAQYE6438-60-91 15:44:00 * Test Item Value Reference Range Interpretation Comments CULTURE (BEAKER) (test code = 1095) No growth GRAM STAIN RESULT (BEAKER) (test code = 1123) 1+ White blood cells seen GRAM STAIN RESULT (BEAKER) (test code = 78757) No organisms seen Dsjqqzeja9468-28-20 06:38:00* Test Item Value Reference Range Interpretation Comments Magnesium (test code = 34147-9) 1.9 mg/dL 1.6-2.6 PHILLIP (test code = PHILLIP) Surplus Property Disposal Agent ID - ULYSSES M Lab Interpretation (test code = 16445-7) Normal [facility]Phosphorus2020-[facility]-14 06:38:00* Test Item Value Reference Range Interpretation Comments Phosphorus (test code = 2777-1) 3.4 mg/dL 2.3-4.7 PHILLIP (test code = PHILLIP) Surplus Property Disposal Agent ID - ULYSSES M Lab Interpretation (test code = 25445-3) Normal [facility]PHOSPHORUS2020-03-14 06:38:00* Test Item Value Reference Range Interpretation Comments PHOSPHORUS (BEAKER) (test code = 604) 3.4 mg/dL 2.3-4.7 Surplus Property Disposal Agent ID - ULYSSES YSZXOILFJE5275-95-18 06:38:00* Test Item Value Reference Range Interpretation Comments MAGNESIUM (BEAKER) (test code = 627) 1.9 mg/dL 1.6-2.6 Surplus Property Disposal Agent ID - ULYSSES MBlood Culture - Routine (Left Venipuncture)2019-05-09 20:01:00* Test Item Value Reference Range Interpretation Comments Result (test code = 6463-4) No growth in 5 days [facility]BLOOD NZTQXEL4580-82-67 20:01:00* Test Item Value Reference Range Interpretation Comments CULTURE (BEAKER) (test code = 1095) No growth in 5 days BLOOD RRGOMEW3165-87-82 20:00:00* Test Item Value Reference Range Interpretation Comments CULTURE (BEAKER) (test code = 1095) No growth in 5 days Oubggxnn7366-42-51 16:28:00* Test Item Value Reference Range Interpretation Comments Case Report (test code = 104) Medical Cytology Report Case: [id number] Authorizing Provider: Robbie New MD Collected: 05/07/20191919 Ordering Location: [address] Received: 05/08/2019 1445 Pathologist: Iman Yang MD Specimen: Pericardial DIAGNOSIS (test code = 3220) n6lxhSZeQTJfa8xaLWXhcLMoYbHmUqMqYlRdYsaiyRAnDDgtzxNrPTyqx2YsL2ZiSeLwCTrsgtUaAWEk BgrzqcsoXJOjQQF9igEwNGHeMRceKAMhBQisJy1ffZSkaZsoBzApOTNmo7ktadZCmxmslWv2v5bwBQUa NsM5mUOmRBcrZ5fsnmMjtRAoHIVxMUu5qV90VPDwzD 6ezRRyZNnnriNvXyO7OOsaJTQsPzQ9RXPsuZUfQEMgL1lqUZOoTXyrNACjNNdbcGCnPYF9fMrel9L3pT LmmCNctQoeMyNfWpDlXYFBd6DdIKu0tAicS1HyJWTnOvZ5nJIsGXZjIJjtJCBaOXEcxhA6xE50PGhmmp M0hZKhb9Hrg34ko073wB9asTMtPOB0APYxZMTslPHe AVYbLMZ3SKZilIJtK8j0KnFqrDZzI2R8QfPkxEFqI2G5QcMosPDaN9A6EzCroDEpVYIprZEkVz5kiKHv dWVsut0mpa02FWI5h8JwhSacIHT4PRD2HlDgNx7gqGCpACElGA3tMgDyrNJrGYRgji06cRbvXDsqrzWi iT9iDrChAVRzbSDbNTNgLZ2hrOHmBBUlrO9atymrSC AcAyWpcjcdHCAprNrvzuYnHo3rkFfiLXE2HNroP1bhuC6rDkA6FVnoJ9tpeJ3ySDv2WAimvMW5UTCjwN 5oXW3rjuwgp1xvYnQeOO6lajwrz0mmKzNkZK4xjhy3k2bsAzKmMS3wzdlbw8qmRjLhEYniBQVkhubyTA Cri1SpyuxoWYJjw4ZhC8PnxOlyG05fbBcsL04tUKXe rEiwxV0nfAeycY5rBtHlIvKgFYjlpOblwCJptenzGVzrcfTbDAzythatUDMvAYpbR3jtCxEpVUYndMmr QPhrs2PxLXVbWFFkWwEpCKYPZQDVIxSYUMsnMoxTWAGzDXTHDO5FHLnTUzc5ECyfegXoKOLlXUUQKOgZ QHyRTDCFD7BgPYHGWZyXAA4ZHIgzQWXwbRXkqIvdca ByMAhgt8AyUFbmTLAtXH4hsFstIFQaSV4iMCAmX5uhrE3kono9DgZhOSJeIuA2YXPdemW2Ccw2NQKoYG qjm9wtg1ZzPXZmKCd7pXcdWsHuIMKit4wsrvYcAtGhHOSsHJLzVSStaXDyE705n8qli9xdhnBxeMI7SU HvRJE1YTyiakTyqcO3LRumlLGzUzH2WZrzkyUvCQqv pvUggiYpGwv5QAMgZ327NPV7vGgbk6quTVJ3JDQlETYtOuBwEb5hkWQkX755DHVmXOPUETNcoKz7TTPr zsTpfyUgrDCBh049O625p3waHMFbefSpxFgBtlxgg8laI710SSFlqSSgfwLtMrSoHOHulTZngAA6FFUr IQ9lvdvsXQmyKFhyOIApywK7QGVleCPfR2VlHXPpWS 1zzkxlMUR7AQnzYYMgVJV6LiAuVKMgb0Ftrdz9UyZmsc7uvb99TGJ1c7RbrJqyGYC7HQV9VjReOi1slX QpCUCpYZ1dVbGpkZYnLJLisa61fQuwXLyeKWE7MJWqklNfw6Acj5wwPgGoheBrV2ycK3NsVMPySYOzSS BmHyPbjvAks9Nci8JueGYelXe4e5vpJARrVHPthEjf d7nqPSE1MLXjmCEzX9adsC4hHJUjNN7hsoeag0ucMMmvPLnxPDVpbWW9hoK0TFOfrMHuA9IgcA0wWWGh BOydMFRqdet8GuYnYo4joDJbkEanMOuaIcxyHPxiGWUxvkSsedRloTsbBYBdKCNnLTnpFYBqKXwnJFWw XGZzMjRccWxcbGFuZzEwMzNcaGljaFxmMVxkYmNoXG XnSKuiF8psNzUlWgAwMic2GNLoyFOkVTEvSep8JIHjjXWoFIFPwIczmA5cAYUnkMlfgR5vjPX2TPAyko QksXWGpM1oZHYTnM7cEbT5NaHsRbK8QUYiBOyamHFsiX8= CPT Code(s) (test code = 3357) m1uwcPFnPBWyfWCqNpCrMPUeXQYud2hmQJXstNVdTgQtTxUgAkVgZidvlAZdFBPbQfDbt2asy801nLJg i2lsFREsOvP0sAGxKOOkmIIsV734t2zud4hlheAunDU1CXYkHHM2JWxyjmEszoJ4LVeelWSqZjA3SYdh bpGsAJkxpqGggoMdZbg6UYSnV141KTX5nDbvx3mlXU O5COIcDFKxNfAySa7jlBPxQ484HJCpEAUZMUAohEy9OIEpubRfdgDdkNHHo487X675n4hwPDLrpnYgkT iDrnehp7swJ239RTBndDBgojTgCwBtBGJzrTGqpQL0GVKzNH8xupbmMvFeZW2trbcaWoJkHK3nvwj7Vx UgAZ0hlmpvFeOzXNllHYIjboyzIEDcg7IzkxirYO5d N2Vth4J9zR3ubREwSLZbgUUnCkEbEHYpti6tnXSySUviu4KhIZB0xyK7sYKayOVbWOIfOR80Vbhvh0Cx UyjjOZQ7TLZwafNhq0Pqo0ujOdCiruTxC9ceN1OgVJVxPKAsCZQwQrMhwoPck8Kdi8KljCQdaBw4g0ku TAQkIFWjnBtnl2peOQN6ISSjK7C1jFXmp4hmRGdvJE CteET3hczmCJzxHPHrxiL8prtaQJdnSVBomIA2diddEHzcDPChHkM4bsiaQShoLPNlQXU2NOslu034MF X6CDmuJrytJAbjMPXkzoVecsAyyHekCSZkKKMfBIjeGIDwZJhxPQNbFEVpTnOkyMkqmGkgmK3uNaEsUa MwHCnwVL4vTGNaI5iwwTSrRAIdCGGdB0ziZdDgzL4bkKgsHQcpvrGvQAl0KGS1UVPjbn6= CLINICAL DATA (test code = 3355) b5dqfNIjONEnmTVgCpUqHDFfOUDgw8ukXYVmfUMqXtVjIiEuCzVlFuwdsVAaNAFxSpEom2xpx964zJBb i0zoDTRiSfP5lUZoRMEpxYVwN681p5ouq1qncqTolLM5YYOlPAJ6ZWrhwtXzdnA2HLcyzTDgVvB2QDpi esUwDSwypnEyweWlXwx1VIOpQ047HJZ7pQvjm9vfSF T1FAQwXPVyCxVqAa8giOSsP488KWGfCMLMKIFnaZf8MROllvHzqyHnoOANa511R039t7wsZZBrxbHtvX yXjnkyy5xaE624CUYwrSKeoqNaNsJcLEHrrFUsiAT1COPeSE6cvqwfRyGqBM3qqcceVmTqAN5wvqm9Am GzIH4tsmusAaMnQYrdVLLtcthlRSRps8GyoftjJU8a L5Zfa7K7fC2tgAZvWSZcvUQoPjQuDWCtyu9uoCLtJGdwq0QiOTI3baH4vAHflQUwAFAnYI03Zbgdg4Sd QhzqBIO0XENpuiPqi2Him5crWmLghlHxM5nhI7YvDDDgZYSyHXBeJePvppQhs7Rii8XgqLVbsBm9x9th GOGtPPSduWefi1tuHZU3GUYwE0M0fIAeo3cpXCliJO RcoPG0bwtbXZqaDYPhbeV2gmsbFEzrBHSrnVP4aangQYasLKKcFlE1zuslXJtdCDWtODI6IWneg590WS B2VBziGsqsFFngBJFxnlQmesQjrGuzCXGkRDOfVLsuQRRcHCetESYgTFNcTuAeeLxjzLgcvG3iArCjGb SfQPshRO5xAZXhR4odbWCmKDXhQHNnX9jaGkJirB9u uOtnPXvrkyYeVRZyechhBJQqwCCiDPEsRuTqsL9zATMxrWWgaA6cuUFniJMgwP== SPECIMEN SOURCE (test code = 3377) z4arcLMsBNIctSPyBxCjCNCpUMQff5btCSGkgPPjPfSiZtXkLjMdNptwiMWtAMEkIxFvb1alq991pHFd g1ilLZUnSkS6dLYmMQDdiCIyP977a7pfr2hsqyWcoTR4DCEuDTA5EMfxdhYopoH6MGuvcBTdAsH1OGqo vxIoEYokjnOqleQsExk5LEQeB559HPY3aKnnu2gwOE S0IPYxPHSaLqLpCo0nfWKqJ103ZZQiYXBEHHSkxAt5RJSpujAbipPdaOOKw700Z234g1wwUQYuaoZfcO uFcknix0znL204TWHvnJUvntXjAoOeLLBtzKZdiZV6VDBuYT9mavtmIuKyON6gryisOnEjOE1jzlr5Sm WmVT3axorzLyDtBMyxVJLherzdQRQkk8NmdskdXY3i W5Uds1T8fC1efAYyAUCvoMJyCxWrAPCxkd3qsQIgQFmzx4GkFJM4viQ3ySLdrWNaVLEbWX93Lmfhf8Ex PdefKUZ4ZWWmesIog5Mnm3roDoQzjuSgJ7gzH7PgYKKqJKWnLONnXdPktrUht2Nja7UtaZGkjGm6x8kh BVQqENWjpKpip4ofASA0DXElI7Z4jOWgw6jmMZjsCD OcmNG2jgcfICxoQANwqoH3wlkjVTcaRRQvzAH3lulkSOtaPCSxBbB4fflxUPrnMLHrYXR0DOwgz635IL G3AHoeXovzHOrnJWBgfnToyqUggNxwLUPsTGRmNQmrSFDqXMbiGKJhZJKuCaPnfJzzxKrpdU7cFsOxBj UiFRgvAA9lQTPfY7uztRPoZRLuKAWlD9byJiPwhS3n aFxmMFxmczIwIFBFUklDQVJESUFMIEZMVUlEXHBhcn0= GROSS DESCRIPTION (test code = 3366) u1lpkWMbJVGzmZXbWrDmLBMiELKar4zzOUUiwRWpUwQyOrAmBhBiOimnlBRgNPAhXqFyy9xdc084wGGm e7jrFOYhUlA8jTHhRBRfpXIuS610WWJlWVjne8rsm7XmBNBuhPFmh4T2TFXCetjibHe4xKpsY86ln5S2 AbhqM7hrSDOdYRKvK5TyJW4iGTQrKit4BHM9GXJ0QA ZiGIEpH1OdGR2mTJQxdUOiAXi4a8oswEprYJZwGEZ9t4ooXCqpbjAyYU3bce4baPw4u6fmucQvGOZzQA SktSTKNNPcV5EzbNatZu4pdCv8dTyyOzxgJNQ6Qbk3RJ5ypd50jnc9pTkvYVBkugcvMoQ6ZPzrDIDksy udXHx9UVhvFVTtjSiyUHvoTYSoaggqGZzzTXSbmNqw KLlaUHJgCoxdJXmuWZXpDIK1YBifl991GZR0DUcrm1byf0zltVUkRmp6PLTmVuZhDbxpMPiwg2Qpn5mb LEEbqk5aFMB3fZArdBqwf9R5hHIrTWTfwJLwixKrMJNkJbC7XNbaVD3pix61YYJiYJN8pt2wkRRthYmm rlLjkNQrQPykK0SkWSHnt234UUNoQ9DrPHUlj1L4fu HgPsUvHTGmqGV5naF0UWTvGCj6uQLxsdM0rbWpiFApS6xzaV95DpEzbWSkT4PluO64VpHtbRZrI1BosP 40EpDfbFYlL3SiuF42ZnIhmDMrVAOeuKKhSi1liAQseZKat7OijAQvHRjeQ42hf738IRWpzeQnG1kitJ BwbjakeRXxyvnnLJryhiE1HIXsFCRaAYzlFLVyWBRm KaGryNVzBzToFiSomDkbhSirQUibQmMiDTYoVKhqH2ihFaLxTxAwYoK9KCPhvDdoGHGwu91faGDpaIBe IBkeGNZlvPClx1XpufIioDMfLNNteRiyQ9CbSNusINFjICCsNKIwgoHFPDQweLYaESkmBGGqYdCeGVRo cn0= STATEMENT OF ADEQUACY (test code = 2757) Satisfactory Gross assessment was performed at (test code = 2777) [facility], Department of Pathology, [address] [place] [address], Technical component was performed at (test code = 2778 ) [facility], Department of Pathology, [address] [place] [address], Professional component was performed at (test code = 2 779) [facility], Department of Pathology, [address] [place] [address], [facility] 16:28:00Medical Cytology Report Case: [id number] Authorizing Provider: Robbie New MD Collected: 05/07/2019 1920 Ordering Location: [place] [address] CCU Received: 05/08/2019 1445 Pathologist: Iman Yang MD Specimen: Pericardial PERICARDIAL FLUID (CYTOSPINS): - NEGATIVE FOR MALIGNANCY Signing Pathologist Direct Phone Line: [phone] signed by Iman Yang MD on 05/09/2019 at 4:28 [id number] effusion, cirrhosisPERICARDIAL HSZFF240 mls bloody fluid; 4 cytospinsCollected: 031 120Received: [id number] [facility], Department of P athology, [address] [place] [address], Ljkjcn [facility], Department of Pathology, [address] [place] [address] 77 030, [facility], Department of Pathology, [address] [place] [address], RRY/CT, CARDIAC PERF REST AND APBDJS5225-66-17 16:05:00Reason for exam:->CADFINAL REPORT PROCEDURE: MYOCARDIAL PERFUSION PET IMAGING (Rest/Stress)CPT CODE: 81872 INDICATION: Assess symptoms/risk factors of possible CAD [...] Verified Date/ Time: 05/09/2019 16:05:35 Reading Location: [address] Myocardial Perfusion Pet/CT (Rest & Stress)2019-05-09 16:05:00Interface, External Ris In - 05/09/2019 4:07 PM CDTFINAL REPORT PROCEDURE: MYOCARDIAL PERFUSION PET IMAGING (Rest/Stress)CPT CODE: 60572 INDICATION: Assess symptoms/risk factors of possible CAD [...] Verified Date/Time: 05/09/2019 16:05:35 Reading Location: [address] Reading Room [facility] tuyms7131-32-64 06:54:00* Test Item Value Reference Range Interpretation Comments Protein, Total (test code = 2885-2) 6.1 6.0- 8.3 gm/dL Specimen slightly hemolyzed Albumin (test code = 29497-2) 2.9 g/dL 3.5-5 L Specimen slightly hemolyzed [...] mg/dL 70-105 H Calcium (test code = 24667-4) 8.1 mg/dL 8.4-10.2 L AST (test code = 1920-8) 30 U/L 5-34 Spe cimen slightly hemolyzed ALT (test code = 1742-6) 8 U/L 6-55 Spe cimen slightly hemolyzed EGFR (test code = 33692-4) 16 mL/min/1.73 sq m ESTIMATED GFR IS NOT ACCURATE CREATININE CLEARANCE IN PREDICTING GLOMERULAR FILTRATION RATE. ESTIMATED GFR IS NOT APPLICABLE FOR DIALYSIS PATIENTS. PHILLIP (test code = PHILLIP) Surplus Property Disposal Agent ID - ULYSSES MSpecimen slightly icteric Lab Interpretation (test code = 59922-0) [facility] [id number] 06:54:00* Test Item Value Reference Range Interpretation [...] GFR IS NOT APPLICABLE FOR DIALYSIS PATIENTS. Surplus Property Disposal Agent ID - ULYSSES MSpecimen slightly ictericCBC W/PLT [...] (test code = 2801) 1 % 0-1 [id number] 06:50:00* Test Item Value Reference Range Interpretation Comments MAGNESIUM (BEAKER) (test code = 627) 2.1 mg/dL 1.6-2.6 Specimen slightly hemolyzed Surplus Property Disposal Agent ID - ULYSSES DVOWRALWQSF2003-16-32 06:50:00* Test Item Value Reference Range Interpretation Comments PHOSPHORUS (BEAKER) (test code = 604) 3.4 mg/dL 2.3-4.7 Specimen slightly hemolyzed Surplus Property Disposal Agent ID - ULYSSES MLimited 2D Ugjfircgcsxcmh4312-09-49 13:37:26Ejection FractionSLEH ECHO HEARTLAB MKCKESSON CPACSInterface, External Ris In - 05/08/2019 1:37 PM CDTTransthoracic Echocardiography Report (TTE) Demographics Patient Name INDRA GALVAN Date of Study 05/08/2019 YAN CORDERO Gender Male Visit Number [id number] Race Unknown Room Number 6213 Number Date of 1980 Referring Physician ROBBIE NEW Age 38 year(s) Rewind Operator Renny Yepez Table Cut Off Saw Operator Nick Navarro I nterpreting Brandy Jackson [...] noted. Signature Electronically signed by Vic Caruso MD([facility]) on 05/08/2019 01:37 PM Findings Technical Quality: Technically adequate e xam. Left Ventricle Normal left ventricular chamber size. Normal wall thickness. Normal overall left ventricular systolic function. No apparent segmental wall motion abnormalities. Estimated LVEF by qualitative assessment is normal (>60%) . Left Atrium LA size is ivxx-ii-japcsiestd enlarged . Right Ventricle Normal right ventricle [...] Ao Root S of Yasmin.: 3.23 cm [facility] W/Doppler(CW/PW/Color)2019-05-08 09:47:52Ejection FractionSLEH ECHO HEARTLAB MKCKESSON CPACSInterface, External Ris In - 05/08/2019 9:48 AM CDTTransthoracic Echocardiography Report (TTE) Demographics Patient Name INDRA GALVAN Date of Study 05/07/2019 YAN CORDERO Gender Male Visit Number [id number] Race Unknown Room Number 6213 Number Date of 1980 Referring Robbie New MD Physician Age 38 year(s) Rewind Operator Aneudy Jerez Interpreting Vic Caruso Physician Fellow [...] A moderate-large circumferential pericardial effusion is present. [facility] Yqyvoqizwfxy9679-33-11 07:53:00* Test Item Value Reference Range Interpretation [...] Poikilocytes (test code = 966) 1+ few Lowgap Cells (test code = 474) 1+ few Artifact (test code = 3432) Present Platelet Conc (test code = 3438) Adequate PHILLIP (test code = PHILLIP) Surplus Property Disposal Agent ID - Ivonne Espinal comments: Slide comm ents: Lab Interpretation (test code = 99403-2) Abnormal [facility] W/PLT COUNT & AUTO [id number] 07:53:00* Test Item Value Reference Range Interpretation [...] (CELLAVISION)(BEAKER) (test code = 3438) Cheryl quate Surplus Property Disposal Agent ID - Ivonne Espinal comments: Slide comments: Dthypkqizzgah7027-39-20 04:01:00* Test Item Value Reference Range Interpretation Comments Procalcitonin (test code = 25238-3) 3.64 ng/mL <0.05 H PHILLIP (test code = PHILLIP) SEPSIS RISK (ng/mL)Low: 0.05-0.50Intermediate: 0.51-2.00High: >=2.01 Lab Interpretation (test code = 62234-7) [facility]normal [facility] CenterPehsslWVZZIZXHLFQQN5523-24-72 04:01:00* Test Item Value Reference Range Interpretation Comments PROCALCITONIN (BEAKER) (test code = 3036) 3.64 ng/mL <0.05 H SEPSIS RISK (ng/mL)Low: 0.05-0.50Intermediate: 0.51-2.00High: > =2.01BASIC METABOLIC [id number] 03:47:00* Test Item Value Reference Range Interpretation [...] GFR IS NOT APPLICABLE FOR DIALYSIS PATIENTS. Surplus Property Disposal Agent ID - LAUREN WSpecimen moderately vehaznsYONLJNSUHY2843-31-96 03:44:00* Test Item Value Reference Range Interpretation Comments PHOSPHORUS (BEAKER) (test code = 604) 2.2 mg/dL 2.3-4.7 L Surplus Property Disposal Agent ID - LAUREN [id number] 03:44:00* Test Item Value Reference Range Interpretation Comments MAGNESIUM (BEAKER) (test code = 627) 1.8 mg/dL 1.6-2.6 Surplus Property Disposal Agent ID Tanja AGUILAR WPrepare Leuko-Red [id number] 23:54:00* Test Item Value Reference Range Interpretation Comments CROSSMATCH (test code = 2264) COMPATIBLE Unit ABO (test code = 7893990) B Pos UNIT NUMBER (test code = 934-0) [id number] Status (test code = 1178323) TX_TIMEINCHART Blood Bank Product (test code = 2263) RED BLOOD CELLS PRODUCT CODE (test code = 933-2) [id number] [facility]ot[facility] doppler dxgdnityd4985-26-94 16:57:29 Ejection FractionSLEH ECHO HEARTLAB MKCKESSON CPACSRight Impression1. The internist al carotid artery is within normal limits.2. [...] CDTPV LAB - Carotid Duplex Study Demograp [facility] Patient Name INDRA GALVAN Date of Study 05/06/2019 YAN CORDERO Age 38 Visit Number [id number] Gender Male Accession Elizabeth tinajero [id number] Date of 1980 Referring Radha Carranza Room Number 2402 Physician SONIDOAlfred Rewind Operator Cb Maki S Interpreting Karen Blackwell, Physician ProcedureType of Study: [...] ! !+-------- -------+----+----+-----+ + + +!Prox Subclav ashley!187 ! !60 ! ! ! !+ + ----+----+-----+ + + + - There is antegrad e vertebral flow noted on the left side. - Additional Measurements:ICAPSV/CCAPS V 0.96.ICAEDV/CCAEDV 1.42.[facility] W/PLT COUNT & AUTO [id number] 11:24:00* Test Item Value Reference Range Interpretation [...] (CELLAVISION)(BEAKER) (test code = 3438) Cheryl quate Surplus Property Disposal Agent ID - Marcella OverholtUser comments: Slide comments: COMPREHENSIVE METABOLIC [id number] 07:21:00* Test Item Value Reference Range Interpretation [...] GFR IS NOT APPLICABLE FOR DIALYSIS PATIENTS. Surplus Property Disposal Agent ID - ULYSSES MSpecimen slightly [id number] Echo W/Doppler(CW/PW/Color) 2019-05-06 15:24:38Ejection FractionSLEH ECHO HEARTLAB MKCKESSON CPACSInterface, External Ris In - 05/06/2019 3:24 PM CDTTransthoracic Echocardiography Report (TTE) Demographics Patient Name INDRA GALVAN Date of Study 05/06/2019 YAN CORDERO Gender Male Visit Number [id number] Race Unknown Room Number 2454 Number Date of 1980 Referring Robbie New MD Physician Age 38 year(s) Rewind Operator Aneudy Jerez Table Cut Off Saw Operator Joanna Whitley Interpreting Pratik Alexis MD [...] Velocity: 2.75 m/s TR Gradient: 30.26 mmHg [facility] CampusUrine [id number] 10:47:00* Test Item Value Reference Range Interpretation Comments Result (test code = 6463-4) <10,000 col/mL skin chase [facility] W/PLT COUNT & AUTO [id number] 09:56:00* Test Item Value Reference Range Interpretation [...] (CELLAVISION)(BEAKER) (test code = 3438) Cheryl quate Surplus Property Disposal Agent ID - Giselle RuckerEdwin comments: Slide comments: WBC: SEGMENTED WI TH TOXIC GRANULATIONS PRESENT ECG 12 higj1730-09-00 06:34:13Interface, External Ris In - 05/06/2019 6:34 AM CDTVentricular Rate 128 BPMAtrial Rate 89 BPMQRS Duration 94 msQ-T Interval 336 msQTC Calculation(Bazett) 490 msR Everest 151 degreesT Everest -88 degreesAtrial fibrillationLeft posterior fascicular blockST & T wave abnormality, consider inferior ischemiaST & T wave abnormality, consider anterolateral ischemiaAbnormal ECGWhen compared with ECG of 05-MAY-2019 20:52,Atrial fibrillation PresentInverted T waves have replaced nonspecific T wave abnormality in Inferior leadsInverted T waves have replaced nonspecific T wave abnormality in Anterolateral leadsConfirmed by MD CHELA, INDRA Simon ([id number]) on 05/06/2019 6:34:11 [facility] JoseCOMPREHENSIVE METABOLIC [id number] 06:25:00* Test Item Value Reference Range Interpretation [...] GFR IS NOT APPLICABLE FOR DIALYSIS PATIENTS. Surplus Property Disposal Agent ID - ULYSSES MSpecimen moderately [id number] 06:24:00* Test Item Value Reference Range Interpretation Comments MAGNESIUM (BEAKER) (test code = 627) 1.9 mg/dL 1.6-2.6 Surplus Property Disposal Agent ID - ULYSSES MBASIC METABOLIC [id number] 21:58:00* Test Item Value Reference Range Interpretation [...] GFR IS NOT APPLICABLE FOR DIALYSIS PATIENTS. Surplus Property Disposal Agent ID - José Miguelimen moderately ictericTroponin [id number] 21:56:00* Test Item Value Reference Range Interpretation Comments Troponin I (test code = 65000-8) <0.01 0-0.03 PHILLIP (test code = PHILLIP) [...] failure, acidosis, acute neurological disease, and persistent tachyarrhythmia.Surplus Property Disposal Agent ID - BS Lab Interpretation (test code = 11423-4) Normal [facility] CampusTROPONI [id number] 21:56:00* Test Item Value Reference Range Interpretation [...] acidosis, acute neurological disease, and per sistent tachyarrhythmia.Surplus Property Disposal Agent ID - YEIETGCXQKI7451-99-56 21:49:00* Test Item Value Reference Range Interpretation Comments MAGNESIUM (BEAKER) (test code = 627) 1.8 mg/dL 1.6-2.6 Specimen slightly hemolyzed Surplus Property Disposal Agent ID - BSCBC W/PLT COUNT & AUTO [id number] 21:32:00* Test Item Value Reference Range Interpretation [...] 2801) 1 % 0-1 Hepatitis B surface [id number] 17:35:00* Test Item Value Reference Range Interpretation Comments HBsAg Screen (test code = 5195-3) Nonreactive Nonreactive PHILLIP (test code = PHILLIP) Surplus Property Disposal Agent ID - BS Lab Interpretation (test code = 50856-3) Normal [facility] Center[facility]AT[facility] SURFACE [id number] 17:35:00* Test Item Value Reference Range Interpretation Comments HEPATITIS B SURFACE ANTIGEN (2) (BEAKER) (test code = 2585) Nonreactive Nonreactive Surplus Property Disposal Agent ID - BSOccult blood, kyffv5409-00-60 14:45:00* Test Item Value Reference Range Interpretation Comments Occult blood (test code = 2335-8) Negative Negative Lab Interpretation (test code = 95750-8) Normal [facility] CampusOCCULT BLOOD, [id number] 14:45:00* Test Item Value Reference Range Interpretation Comments FECAL OCCULT BLOOD (BEAKER) (test code = 618) Negative Negative [id number] 10:41:00* Test Item Value Reference Range Interpretation Comments Ferritin (test code = 2276-4) 1081 ng/mL 5-275 H PHILLIP (test code = PHILLIP) Surplus Property Disposal Agent ID - AAHAMID Lab Interpretation (test code = 61526-7) Abnormal [facility] CampusFERRITIN2020-03-09 10:41:00* Test Item Value Reference Range Interpretation Comments FERRITIN (BEAKER) (test code = 361) 1081 ng/mL 5-275 H Surplus Property Disposal Agent ID - AAHAMIDDirect AHG (LUMA)/Direct Uvdmvr8555-21-23 10:38:00* Test Item Value Reference Range Interpretation Comments Direct AHG-IGG (test code = 1006-6) NEGATIVE Direct AHG-C3B, C3D (test code = 1003-3) NEGATVIE [facility] CampusABORH, [id number] 10:28:00* Test Item Value Reference Range Interpretation Comments ABO Grouping (test code = 2588) B Rh Factor (test code = 2589) POS [facility] CampusCOMPREHENSIVE METABOLIC [id number] 10:25:00* Test Item Value Reference Range Interpretation [...] GFR IS NOT APPLICABLE FOR DIALYSIS PATIENTS. Surplus Property Disposal Agent ID - ROZINA LSpecimen moderately ictericIron, TIBC, % sat. (without ferritin)2019-05-05 10:21:00* Test Item Value Reference Range Interpretation Comments Iron (test code = 2498-4) 88.0 ug/dL 40-160 TIBC (test code = 2500-7) 130 ug/dL 250-450 L Iron % Saturation (test code = 2502-3) 68 % 20-55 H PHILLIP (test code = PHILLIP) Surplus Property Disposal Agent ID - ROZINA L Lab Interpretation (test code = 89611-5) Abnormal [facility] CenterIRON, TIBC, % SAT. (WITHOUT FERRITIN)2019-05-05 10:21:00* Test Item Value Reference Range Interpretation Comments IRON (BEAKER) (test code = 547) 88.0 ug/dL 40.0-160.0 TOTAL IRON BINDING CAPACITY (BEAKER) (test code = 769) 130 ug/dL 250-450 L IRON % SATURATION (2) (BEAKER) (test code = 2590) 68 % 20-5 5 H Surplus Property Disposal Agent ID - ROZINA LBILIRUBIN, [id number] 10:20:00* Test Item Value Reference Range Interpretation Comments BILIRUBIN DIRECT (BEAKER) (test code = 706) 3.0 mg/dL 0.1-0.5 H Surplus Property Disposal Agent ID - ROZINA LCBC W/PLT COUNT & AUTO [id number] 10:08:00* Test Item Value Reference Range Interpretation [...] code = 2801) 1 % 0-1 Reticulocyte [id number] 10:04:00* Test Item Value Reference Range Interpretation Comments % Retic (test code = 06454-8) 2.3 % 0.5-1.8 H PHILLIP (test code = PHILLIP) Surplus Property Disposal Agent ID - [id number] Lab Interpretation (test code = 12776-4) Abnormal [facility] CampusRETICULOCYTE [id number] 10:04:00* Test Item Value Reference Range Interpretation Comments RETICULOCYTE COUNT PCT (BEAKER) (test code = 575) 2.3 % 0.5- 1.8 H Surplus Property Disposal Agent ID - [id number] acid, pdqhll3568-37-57 00:50:00* Test Item Value Reference Range Interpretation Comments Lactate, Venous (test code = 2872) 2.6 mmol/L 0.5-2.2 H PHILLIP (test code = PHILLIP) Surplus Property Disposal Agent ID - PIAYA LSpecimen slightly icteri c Lab Interpretation (test code = 57014-0) Abnormal [facility] CampusLACTIC ACID, [id number] 00:50:00* Test Item Value Reference Range Interpretation Comments LACTATE BLOOD VENOUS (2) (BEAKER) (test code = 2872) 2.6 mmol/L 0 .5-2.2 H Surplus Property Disposal Agent ID - PIAYA LSpecimen slightly ictericStrep pneumoniae npkpibo8472-65-54 21:50:00* Test Item Value Reference Range Interpretation Comments Strep pneumoniae Antigen (test code = 57502-2) Presump tive negative for pneumococcal pneumonia - [...] the test. Lab Interpretation (test code = 01637-5) [facility] PNEUMONIAE [id number] 21:50:00* Test Item Value Reference Range Interpretation Comments STREP PNEUMONIAE ANTIGEN ([facility]) (test code = 1615) P resumptive negative for pneumococcal pneumonia - see comment Presumptive negative for pneumococcal pneumonia - see commen Presumptive negative for pneumococcal pneumonia, suggesting no current or recent pneumococcal infection. Infection due to S. pneumoniae cannot be ruled out since the antigen present in the sample may be below the detection limit of the test. Legionella antigen, [id number] 21:49:00* Test Item Value Reference Range Interpretation Comments Legionella Urine Antigen (test code = 97116-8) Negative - see comme nt Negative for L. pneumophila serogroup 1 antigen, suggesting no recent or current infection with this serogroup. Legionellosis cannot be ruled out since other serogroups and species may cause disease. [facility] CampusLEGIONELLA ANTIGEN, [id number] 21:49:00* Test Item Value Reference Range Interpretation Comments L. PNEUMOPHILA SEROGP 1 UR AG ([facility]) (test code = 11 56) Negative - see comment Negative for L. pneu mophila serogroup 1 antigen, suggesting no recent or current infection with this serogroup. Legionellosis cannot be ruled out since other serogroups and species may cause disease. Type and screen, automated ([facility] and [facility] only)2019-05-04 21:22:00* Test Item Value Reference Range Interpretation Comments ABO/RH AUTOMATED ([facility]) (test code = 2260) B POSITIVE Ab Scrn (test code = 890-4) NEGATIVE [facility] CampusPROCALCITONIN2020-03-08 20:32:00* Test Item Value Reference Range Interpretation Comments PROCALCITONIN ([facility]) (test code = 3036) 14.51 ng/mL <0.05 HH SEPSIS RISK (ng/mL)Low: 0.05-0.50Intermediate: 0.51-2.00High: > =2.01Urinalysis w/Microscopic + Reflex to [id number] 20:25:00* Test Item Value Reference Range Interpretation Comments Color, UA (test code = 5778-6) Yellow Clarity, UA (test code = 5767-9) Hazy Specific [place], UA (test code = 5811-5) 1.011 1.001-1.035 pH, UA (test code = 5803-2) 5.5 5.0-8.0 Protein, UA (test code = 70143-2) 100 mg/dL Negative A Glucose, UA (test code = 365) 100 mg/dL Negative A Ketones, UA (test code = 2514-8) Negative Negative Bilirubin, UA (test code = 71546-6) Negative Negative Blood, UA (test code = 05089-3) Negative Negative Nitrite, UA (test code = 5802-4) Negative Negative Leukocytes, UA (test code = 5799-2) Negative Negative Urobilinogen, UA (test code = 13861-3) 0.2 mg/dL 0.2-1 RBC, UA (test code = 52404-4) 7 /HPF WBC, UA (test code = 5821-4) 12 /HPF Bacteria, UA (test code = 80473-2) Occasional Mucus (test code = 8247-9) Rare Squam Epithel, UA (test code = 11863-2) 18 /HPF Hyaline Casts, UA (test code = 70090-2) 78 /LPF Casts (test code = 9842-6) 70 /LPF Crystals, Urine (test code = 02281-9) Occasional Yeast (test code = 79615-3) Moderate Specimen Source (test code = 2795) PHILLIP (test code = PHILLIP) Surplus Property Disposal Agent ID - [auto]Surplus Property Disposal Agent ID - tech Lab Interpretation (test code = 35724-9) Abnormal [facility] CenterUR[facility]IS W/ REFLEX URINE [id number] 20:25:00* Test Item Value Reference Range Interpretation [...] 1585) Moderate SOURCE(BEAKER) (test code = 2795) Surplus Property Disposal Agent ID - [auto]Surplus Property Disposal Agent ID - techPT/[id number] 20:11:00* Test Item Value Reference Range Interpretation Comments Protime (test code = 5902-2) 18.9 11.9- 14.2 seconds H INR (test code = 6301-6) 1.6 <=5.9 PTT (test code = 30194-5) 40.7 22.5- 36.0 seconds H PHILLIP (test code = PHILLIP) Effective 07/24/2018: PT Refe rence Range ChangeNew: 11.9- 14.2 Previous: 11.7-14.7 RECOMMENDED COUMADIN/WARFARIN INR THERAPY RANGESSTANDARD DOSE: 2.0-3.0 Includes: PROPHYLAXIS for venous thrombosis, sys temic embolization; TREATMENT for venous thrombosis and/or pulmonary embolus.HIGH RISK: Target INR is 2.5-3.5 for patients wiht mechanical heart valves. Lab Interpretation (test code = 68646-1) Abnormal [facility] CenterPT/[id number] 20:11:00* Test Item Value Reference Range Interpretation [...] Range Interpretation Comments BNP (test code = 83921-7) 612 pg/mL 0-100 H PHILLIP (test code = PHILLIP) Surplus Property Disposal Agent ID - DB Lab Interpretation (test code = 74617-0) Abnormal [facility] CampusRapid Influenza A&B [id number] 20:00:00* Test Item Value Reference Range Interpretation Comments Rapid Influenza A Antigen (test code = 49963-3) Negative Negative, Inconclusive Rapid influenza B Antigen (test code = 32960-9) Negative Negative, Inconclusive Lab Interpretation (test code = 10587-6) Normal [facility] CampusB-TYPE NATRIURETIC FACTOR (BNP)2019-05-04 20:00:00 * Test Item Value Reference Range Interpretation Comments B-TYPE NATRIURETIC PEPTIDE (BEAKER) (test code = 700) 612 pg/mL 0-100 H Surplus Property Disposal Agent ID - DBTROPONIN [id number] 20:00:00* Test Item Value Reference Range Interpretation [...] acidosis, acute neurological disease, and per sistent tachyarrhythmia.Surplus Property Disposal Agent ID - DBRAPID INFLUENZA A&B [id number] 20:00:00* Test Item Value Reference Range Interpretation Comments RAPID INFLUENZA A AG (BEAKER) (test code = 1622) Negative Negative, Inconclusive RAPID INFLUENZA B AG (BEAKER) (test code = 1623) Negative Negative, Inconclusive [id number] 19:54:00* Test Item Value Reference Range Interpretation Comments PHOSPHORUS (BEAKER) (test code = 604) 2.9 mg/dL 2.3-4.7 Surplus Property Disposal Agent ID - [id number] 19:54:00* Test Item Value Reference Range Interpretation Comments MAGNESIUM (BEAKER) (test code = 627) 2.0 mg/dL 1.6-2.6 Surplus Property Disposal Agent ID - DBCOMPREHENSIVE METABOLIC [id number] 19:54:00* Test Item Value Reference Range Interpretation [...] GFR IS NOT APPLICABLE FOR DIALYSIS PATIENTS. Surplus Property Disposal Agent ID - DBSpecimen slightly ictericCBC W/PLT COUNT [...] = 2801) 1 % 0-1 LACTIC ACID, [id number] 19:48:00* Test Item Value Reference Range Interpretation Comments LACTATE BLOOD VENOUS (2) (BEAKER) (test code = 2872) 2.7 mmol/L 0 .5-2.2 H Specimen slightly hemolyzed Surplus Property Disposal Agent ID - DBSpecimen slightly ictericCRITICAL [id number] 18:47:50Juanpablo Calhoun MD 05/04/2019 9:12 PMCritical CarePerformed [...] condition and r eview of old charts. [facility] CampusRAD, CHEST, 1 VIEW, NON DEPT 2019-05-04 18:08:00Reason [...] MDReport Verified Date/Time: 05/04/2019 18:08:08 Reading Location: [facility] C013T Transitional Reading Room chest 1 view portable / [id number] 18:08:00Interface, External Ris In - 05/04/2019 6:10 PM CDTFINAL REPORT EXAM: Chest one view COMPARISON: December 22, 2018 Clinical history: Weakness FINDINGS: There is persistent cardiomegaly. There is interval improvement in pulmonary edema. The right internal jugular chest tunneled dialysis catheter appears unchanged in position. The regional osseous structures are unremarkable Signed: Sadiq Haines MDReport Verified Date/Time: 05/04/2019 18:08:08 Reading Location: [facility] C013T Transitional Reading Room [facility] CampusBASIC METABOLIC [id number] 11:09:00* Test Item Value Reference Range Interpretation [...] GFR IS NOT APPLICABLE FOR DIALYSIS PATIENTS. Surplus Property Disposal Agent ID - LMSpecimen slightly ictericHEPATIC FUNCTION [id number] 11:04:00* Test Item Value Reference Range Interpretation [...] (test code = 347) 12 U/L 6-55 Surplus Property Disposal Agent ID - LMSpecimen slightly ictericPROTHROMBIN TIME/[id number] 10:47:00 * Test Item Value Reference Range [...] mechanical heart valves.CBC W/PLT COUNT & AUTO [id number] 10:40:00* Test Item Value Reference Range Interpretation [...] = 2801) 0 % 0-1 BASIC METABOLIC [id number] 11:22:00* Test Item Value Reference Range Interpretation [...] GFR IS NOT APPLICABLE FOR DIALYSIS PATIENTS. Surplus Property Disposal Agent ID - NTPSpecimen slightly ictericHEPATIC FUNCTION [id number] 11:09:00* Test Item Value Reference Range Interpretation [...] (test code = 347) 16 U/L 6-55 Surplus Property Disposal Agent ID - NTPSpecimen slightly ictericCBC W/PLT COUNT [...] = 2801) 0 % 0-1 No clotPROTHROMBIN TIME/[id number] 11:03:00* Test Item Value Reference Range Interpretation [...] patie nts wiht mechanical heart valves.COMPREHENSIVE METABOLIC [id number] 12:23:00* Test Item Value Reference Range Interpretation [...] APPLICABLE FOR DIALYSIS PATIENTS. Specimen slightly ictericBILIRUBIN, [id number] 12:18:00* Test Item Value Reference Range Interpretation Comments BILIRUBIN DIRECT (BEAKER) (test code = 706) 2.4 mg/dL 0.1-0.5 H CBC W/PLT COUNT & AUTO [id number] 12:16:00* Test Item Value Reference Range Interpretation [...] code = 2801) 1 % 0-1 PROTHROMBIN TIME/[id number] 12:09:00* Test Item Value Reference Range Interpretation Comments PROTIME ([facility]) (test code = 759) 16.5 seconds 11.9-14.2 H INR ([facility]) (test code = 370) 1.4 <=5.9 Effective 07/24/2018: PT Reference Range ChangeNew: 11.9-14.2 Previous: 11.7-14. 7RECOMMENDED COUMADIN/WARFARIN INR THERAPY RANGESSTANDARD DOSE: 2.0-3.0 Include s: PROPHYLAXIS for venous thrombosis, systemic embolization; TREATMENT for venou s thrombosis and/or pulmonary embolus.HIGH RISK: Target INR is 2.5-3.5 for patie nts wiht mechanical heart valves.HLA TYPING [id number] 21:42:00* Test Item Value Reference Range Interpretation [...] and its performance characteristics determined by the [facility] Laboratory. It has not been cleared [...] to perform high complexity clinical laboratory testing. [facility] CampusHLA TYPING [id number] 21:42:00* Test Item Value Reference Range Interpretation [...] and its performance characteristics determined by the [facility] Laboratory. It has not been cleared [...] to perform high complexity clinical laboratory testing. [facility] CampusCOMPREHENSIVE METABOLIC [id number] 12:19:00* Test Item Value Reference Range Interpretation [...] code = 652) 100 mg/dL 70-105 CALCIUM ([facility]) (test code = 697) 9.5 mg/dL 8.4-10.2 AST (SGOT) (BEAKER) (test code = 353) 40 U/L 5-34 H ALT (SGPT) (BEAKER) (test code = 347) 15 U/L 6-55 EGFR ([facility]) (test code = 1092) 12 mL/min/1.73 sq m ESTIMATED GFR IS NOT ACCURATE CREATININE CLEARANCE IN PREDICTING GLOMERULAR FILTRATION RATE. ESTIMATED GFR IS NOT APPLICABLE FOR DIALYSIS PATIENTS. Specimen moderately ictericBILIRUBIN, [id number] 12:18:00* Test Item Value Reference Range Interpretation Comments BILIRUBIN DIRECT ([facility]) (test code = 706) 4.1 mg/dL 0.1-0.5 H U/S, PELVIS, WITH [id number] 11:35:00Reason for Exam:->esrd/kidney transplant evaluationFINAL REPORT Pelvic [...] IMPRESSION: Unremarkable pelvic vasculature. Signed: Keith Garcia MDReport Verified Date/Time: 02/03/2019 11:35:01 Reading Location: [address] Radiology Reading Room pelvis with ojiouch6344-17-02 11:35:00Interface, External Ris In - 02/03/2019 11:37 [...] IMPRESSION: Unremarkable pelvic vasculature. Sign ed: Keith Garciaepjane Verified Date/Time: 02/03/2019 11:35:01 Reading Locati on: [address] Radiology Reading Room [facility] CampusPROTHROMBIN TIME/[id number] 11:12:00* Test Item Value Reference Range Interpretation [...] mechanical heart valves.CBC W/PLT COUNT & AUTO [id number] 11:10:00* Test Item Value Reference Range Interpretation [...] 2801) 1 % 0-1 AB SPECIFICITY CLASS [id number] 09:48:00* Test Item Value Reference Range Interpretation Comments AB Specificity Class I (test code = 3457) NO CLASS I A NTIBODY DETECTED WITH MFIs > 4000 PHILLIP (test code = PHILLIP) Disclaimer: This test was de veloped and its performance characteristics determined by the [facility]. It has not been cleared [...] to perform high complexity clinical laboratory testing. [facility] CampusFLOW PRA CLASS I WITH REFLEX TO ANTIBODY [id number] 10:06:00* Test Item Value Reference Range Interpretation Comments Flow Class I Percent Positive (test code = 3229) 20 PHILLIP (test code = PHILLIP) Disclaimer: This test was de veloped and its performance characteristics determined by the [facility] Laboratory. It has not been cleared [...] to perform high complexity clinical laboratory testing. [facility] CampusFLOW PRA CLASS II WITH REFLEX TO ANTIBODY [id number] 10:06:00* Test Item Value Reference Range Interpretation Comments Flow Class II Percent Positive (test code = 3231) 0 PHILLIP (test code = PHILLIP) Disclaimer: This test was de veloped and its performance characteristics determined by the [facility]. It has not been cleared [...] to perform high complexity clinical laboratory testing. [facility] CampusMISCELLANEOUS LAB [id number] 07:41:00* Test Item Value Reference Range Interpretation Comments SCAN RESULT (test code = 7149481) [id number] 19:31:00* Test Item Value Reference Range Interpretation Comments Haptoglobin (test code = 4542-7) 14 mg/dL 14-258 Lab Interpretation (test code = 69600-2) Normal [facility] CampusHAPTOGLOBIN2019-11-23 19:31:00* Test Item Value Reference Range Interpretation [...] % 20-5 5 H Vitamin B12 and [id number] 19:16:00* Test Item Value Reference Range Interpretation Comments Vitamin B12 (test code = 2132-9) 1988 pg/mL 213-816 H Folate (test code = 2284-8) 17.8 ng/mL >=7.0 Lab Interpretation (test code = 32141-4) Abnormal [facility] CampusVITAMIN B12 AND [id number] 19:16:00* Test Item Value Reference Range Interpretation Comments VITAMIN B12 (BEAKER) (test code = 774) 1988 pg/mL 213-816 H FOLATE (BEAKER) (test code = 362) 17.8 ng/mL >=7.0 [id number] 19:04:00* Test Item Value Reference Range Interpretation Comments FERRITIN (BEAKER) (test code = 361) 1523 ng/mL 5-275 H Lactate dehydrogenase (LDH)2019-01-18 18:27:00* Test Item Value Reference Range Interpretation Comments LDH (test code = 2532-0) 192 U/L 125-220 Lab Interpretation (test code = 00892-8) Normal [facility] CampusLACTATE DEHYDROGENASE (LDH)2019-01-18 18:27:00* Test Item Value Reference Range Interpretation Comments LACTATE DEHYDROGENASE (BEAKER) (test code = 635) 192 U/L 125-2 20 Hemoglobin and aywqgoivhj1737-50-78 11:26:00* Test Item Value Reference Range Interpretation Comments Hemoglobin (test code = 786-4) 7.5 13.7- 17.5 GM/DL L Hematocrit (test code = 4544-3) 23.0 % 40.1-51 L Lab Interpretation (test code = 70175-0) Abnormal [facility] CampusHEMOGLOBIN AND [id number] 11:26:00* Test Item Value Reference Range Interpretation [...] K/CU MM L MPV (test code = 59835-1) 10.1 fL 9.4-12.4 nRBC (test code = 413) 0 0- 0 /100 WBC Lab Interpretation (test code = 26346-4) [facility] ONLY)2019-01-18 03:09:00* Test Item [...] WBC 0 -0 Alpha fetoprotein (AFP), tumor [id number] 17:58:00* Test Item Value Reference Range Interpretation Comments Alpha-Fetoprotein (test code = 1834-1) 2.7 ng/mL <10.0 Lab Interpretation (test code = 10435-2) Normal [facility] CenterALPHA FETOPROTEIN (AFP), TUMOR [id number] 17:58:00* Test Item Value Reference Range Interpretation Comments ALPHA-FETOPROTEIN (BEAKER) (test code = 1094) 2.7 ng/mL <10.0 BASIC METABOLIC [id number] 17:09:00* Test Item Value Reference Range Interpretation [...] FOR DIALYSIS PATIENTS. Specimen moderately ictericHEPATIC FUNCTION [id number] 17:08:00* Test Item Value Reference Range Interpretation [...] Specimen moderately ictericCBC W/PLT COUNT & AUTO KYXOUMRTAQZN6792-41-61 16:55:00* Test Item Value Reference Range Interpretation [...] code = 2801) 0 % 0-1 PROTHROMBIN TIME/[id number] 16:52:00* Test Item Value Reference Range Interpretation [...] patie nts wiht mechanical heart valves.BASIC METABOLIC [id number] 07:35:00* Test Item Value Reference Range Interpretation [...] NOT APPLICABLE FOR DIALYSIS PATIENTS. Specimen markedly irckoyuONWTJHAFQ6887-80-85 07:18:00* Test Item Value Reference Range Interpretation Comments MAGNESIUM (BEAKER) (test code = 627) 2.1 mg/dL 1.6-2.6 HEPATIC FUNCTION [id number] 07:18:00* Test Item Value Reference Range Interpretation [...] 347) 16 U/L 6-55 Specimen markedly ictericPROTHROMBIN TIME/NUF5939-15-38 06:41:00* Test Item Value Reference Range Interpretation [...] = 413) 0 /100 WBC 0 -0 WVNTOMEDK2393-88-47 05:08:00* Test Item Value Reference Range Interpretation Comments MAGNESIUM (BEAKER) (test code = 627) 2.0 mg/dL 1.6-2.6 HEPATIC FUNCTION [id number] 05:08:00* Test Item Value Reference Range Interpretation [...] 18 U/L 6-55 Specimen markedly ictericBASIC METABOLIC AQJZB7950-74-43 05:08:00* Test Item Value Reference Range Interpretation [...] APPLICABLE FOR DIALYSIS PATIENTS. Specimen markedly ictericPROTHROMBIN TIME/STV1137-06-50 04:55:00* Test Item Value Reference Range Interpretation [...] = 413) 0 /100 WBC 0 -0 Gtfeyds2161-71-99 10:14:00* Test Item Value Reference Range Interpretation Comments Ethanol Lvl (test code = 5643-2) <10 <=10 mg/dL Lab Interpretation (test code = 66818-2) [facility] 10:14:00* Test Item Value Reference Range Interpretation Comments ETHANOL (BEAKER) (test code = 400) < mg/dL <=10 BASIC METABOLIC [id number] 05:20:00* Test Item Value Reference Range Interpretation [...] FOR DIALYSIS PATIENTS. Specimen markedly ictericHEPATIC FUNCTION [id number] 05:19:00* Test Item Value Reference Range Interpretation [...] Specimen markedly ictericCBC W/PLT COUNT & AUTO REEIMCRLLDUQ2479-21-22 05:05:00 * Test Item Value Reference Range [...] = 2801) 0 % 0-1 BASIC METABOLIC [id number] 22:30:00* Test Item Value Reference Range Interpretation [...] FOR DIALYSIS PATIENTS. Specimen markedly ictericHEPATIC FUNCTION [id number] 22:26:00* Test Item Value Reference Range Interpretation [...] = 347) 15 U/L 6-55 Specimen markedly ictericPT/KGMW5900-46-87 22:22:00* Test Item Value Reference Range Interpretation [...] mechanical heart valves.CBC W/PLT COUNT & AUTO ZSQVHZZNIWLN3765-48-72 22:19:00* Test Item Value Reference Range Interpretation [...] code = 2801) 1 % 0-1 BLOOD [id number] 11:00:00* Test Item Value Reference Range Interpretation Comments CULTURE (BEAKER) (test code = 1095) No growth in 5 days HEPATIC FUNCTION [id number] 09:42:00* Test Item Value Reference Range Interpretation [...] 347) 17 U/L 6-55 Specimen markedly ictericBLOOD JWYBMFD9326-10-85 08:00:00* Test Item Value Reference Range Interpretation Comments CULTURE (BEAKER) (test code = 1095) No growth in 5 days BLOOD NITNPYW4393-26-17 08:00:00* Test Item Value Reference Range Interpretation Comments CULTURE (BEAKER) (test code = 1095) No growth in 5 days BLOOD DJEVBBF1179-26-77 08:00:00* Test Item Value Reference Range Interpretation Comments CULTURE (BEAKER) (test code = 1095) No growth in 5 days QQSSHEOEVSG3910-80-68 05:03:00* Test Item Value Reference Range Interpretation Comments HAPTOGLOBIN (BEAKER) (test code = 366) < mg/dL 14-258 L BASIC METABOLIC [id number] 05:02:00* Test Item Value Reference Range Interpretation [...] NOT APPLICABLE FOR DIALYSIS PATIENTS. Specimen markedly vhuyogxEGGRFUBYNN4532-42-81 04:44:00* Test Item Value Reference Range Interpretation Comments PHOSPHORUS (BEAKER) (test code = 604) 4.4 mg/dL 2.3-4.7 ZMKHYABGE0747-93-05 04:44:00* Test Item Value Reference Range Interpretation Comments MAGNESIUM (BEAKER) (test code = 627) 2.1 mg/dL 1.6-2.6 CBC W/PLT COUNT & AUTO QZBKDPQHEFQV4008-89-46 04:40:00* Test Item Value Reference Range Interpretation [...] = 2801) 0 % 0-1 Vancomycin level, gasjuk5240-06-78 04:39:00* Test Item Value Reference Range Interpretation Comments Vancomycin Rm (test code = 46050-6) 16.4 ug/mL PHILLIP (test code = PHILLIP) Reference Range: No Normals [facility], [id number] 04:39:00* Test Item Value Reference Range Interpretation Comments VANCOMYCIN RANDOM (BEAKER) (test code = 523) 16.4 ug/mL Reference Range: No NormalsLACTATE DEHYDROGENASE (LDH)2018-12-25 13:28:00* Test Item Value Reference Range Interpretation Comments LACTATE DEHYDROGENASE (BEAKER) (test code = 635) 242 U/L 125-2 20 H Venous doppler legs ljrnbgqmz9008-79-47 12:50:27Ejection FractionSLEH ECHO HEARTLAB MKCKESSON CPACSRight Impression1. [...] 12/25/2018 12:50 PM CDTPV LAB - L [facility] Extremities DVT Study Demographics Patient Name INDRA GALVAN ate of Study 12/24/2018 YAN CORDERO 8135 Age 38 Visit Number [id number] nder Male Accession Number [id number] Date of 1980 Referring Audie Hoyt MD Room Number 7604 [facility] ashley Rewind Operator Cb Maki S Interpreting Karen Blackwell Physician ProcedureType of Stud [...] in the common femoral, profundafemoral, femoral, popliteal, wastewater superintendent ior tibial or peroneal veins.2. There is [...] in cm/s ; Diameters are measured i [facility] W/PLT COUNT & AUTO LXXXWSRWKDHW1461-58-77 04:43:00* Test Item Value Reference Range Interpretation [...] (test code = 2801) 0 % 0-1 VZKDFFDEJB2152-90-61 04:26:00* Test Item Value Reference Range Interpretation Comments PHOSPHORUS (BEAKER) (test code = 604) 4.7 mg/dL 2.3-4.7 YLEZKZSZP0359-54-01 04:26:00* Test Item Value Reference Range Interpretation Comments MAGNESIUM (BEAKER) (test code = 627) 2.3 mg/dL 1.6-2.6 HEPATIC FUNCTION PIDVS9968-07-67 04:26:00* Test Item Value Reference Range Interpretation [...] 12 U/L 6-55 Specimen markedly ictericBASIC METABOLIC BWDOQ2696-08-73 04:26:00* Test Item Value Reference Range Interpretation [...] APPLICABLE FOR DIALYSIS PATIENTS. Specimen markedly ictericPROTHROMBIN TIME/BEQ0953-09-59 04:22:00* Test Item Value Reference Range Interpretation [...] patie nts wiht mechanical heart valves.BASIC METABOLIC YWHCY4023-68-18 04:45:00* Test Item Value Reference Range Interpretation [...] NOT APPLICABLE FOR DIALYSIS PATIENTS. Specimen markedly dswuohaSJPCPLEKLM4818-77-11 04:39:00* Test Item Value Reference Range Interpretation Comments PHOSPHORUS (BEAKER) (test code = 604) 2.4 mg/dL 2.3-4.7 OXTHXTJWW7455-14-47 04:39:00* Test Item Value Reference Range Interpretation Comments MAGNESIUM (BEAKER) (test code = 627) 2.0 mg/dL 1.6-2.6 CBC W/PLT COUNT & AUTO IRYZHYZMMTDH0194-26-20 03:32:00* Test Item Value Reference Range Interpretation [...] code = 2801) 0 % 0-1 HEMODIALYSIS ZZVYNXDEC6275-98-09 23:25:30SFlakita granado RN 12/24/2018 12:23 AMVerified informed [...] Ag Latest Ref Range: Nonreactive Nonreactive [facility] (HEMOGRAM ONLY)2018-12-23 20:21:00* Test Item Value Reference [...] /100 WBC 0 -0 HEPATITIS B SURFACE OXHGWYK1804-29-03 05:28:00* Test Item Value Reference Range Interpretation Comments HEPATITIS B SURFACE ANTIGEN (2) (BEAKER) (test code = 2585) Nonreactive Nonreactive BASIC METABOLIC [id number] 05:28:00* Test Item Value Reference Range Interpretation [...] NOT APPLICABLE FOR DIALYSIS PATIENTS. Specimen markedly pkvkjsdXRDVJRKOCN7560-92-24 05:23:00* Test Item Value Reference Range Interpretation Comments PHOSPHORUS (BEAKER) (test code = 604) 3.4 mg/dL 2.3-4.7 SOFEHPMRZ9346-57-87 05:23:00* Test Item Value Reference Range Interpretation Comments MAGNESIUM (BEAKER) (test code = 627) 2.1 mg/dL 1.6-2.6 VANCOMYCIN LEVEL, [id number] 05:15:00* Test Item Value Reference Range Interpretation Comments VANCOMYCIN RANDOM (BEAKER) (test code = 523) 36.4 ug/mL Reference Range: No NormalsCBC W/PLT COUNT & AUTO KATFLMIKZMJN3517-16-49 04:21:00* Test Item Value Reference Range Interpretation [...] % 0-1 CT, EXTREMITY, LOWER WITHOUT CONTRAST, [id number] 03:00:00FINAL REPORT CT right lower extremity. CLINICAL [...] Signed: Richie Griffin Verified Date/Time: 12/23/2018 03:00:15 [facility]Vancom[facility], bdyuei7456-25-71 17:08:00* Test Item Value Reference Range Interpretation Comments Vancomycin Tr (test code = 4092-3) 40.3 ug/mL 10-20 HH Lab Interpretation (test code = 92736-2) Abnormal [facility]ANCOMYCIN LEVEL, [id number] 17:08:00* Test Item Value Reference Range Interpretation Comments VANCOMYCIN TROUGH (BEAKER) (test code = 522) 40.3 ug/mL 10.0-20.0 CBC (HEMOGRAM ONLY)2018-12-22 16:33:00* Test Item Value [...] 0 -0 RAD, CHEST, 1 VIEW, NON [id number] 08:35:00Reason for exam:->eval pulmonary congestionShould this be [...] Moura Verified Date/Time: 12/22/2018 08:35:05 Reading Location: [address] Neuro Reading Room Electronically signed by: OMERO MOURA M.D. on 2018 08:35 AM BASIC METABOLIC [id number] 05:18:00* Test Item Value Reference Range Interpretation [...] NOT APPLICABLE FOR DIALYSIS PATIENTS. Specimen markedly urfohmbVOPYHXGTJ7982-56-21 05:08:00* Test Item Value Reference Range Interpretation Comments MAGNESIUM (BEAKER) (test code = 627) 2.2 mg/dL 1.6-2.6 Specimen slightly hemolyzed IGJSFSJAKZ6680-58-70 05:08:00* Test Item Value Reference Range Interpretation Comments PHOSPHORUS (BEAKER) (test code = 604) 3.9 mg/dL 2.3-4.7 Specimen slightly hemolyzed LACTIC ACID, [id number] 04:40:00* Test Item Value Reference Range Interpretation Comments LACTATE BLOOD VENOUS (2) (BEAKER) (test code = 2872) 1.7 mmol/L 0 .5-2.2 Specimen slightly hemolyzed Specimen markedly pnfunaxVzawyxndsq9538-90-51 04:18:00* Test Item Value Reference Range Interpretation Comments Fibrinogen (test code = 3255-7) 195 mg/dl 225-434 L Lab Interpretation (test code = 21203-6) [facility]normal [facility] CenterHlzucxWXNZPWJSXG1264-74-30 04:18:00* Test Item Value Reference Range Interpretation Comments FIBRINOGEN LEVEL (BEAKER) (test code = 658) 195 mg/dl 225-434 L CBC W/PLT COUNT & AUTO GHTUSJCQZLBY4928-00-82 04:10:00* Test Item Value Reference Range Interpretation [...] = 2801) 1 % 0-1 HEMOGLOBIN AND URBWFUWIGU4634-57-45 08:38:00* Test Item Value Reference Range Interpretation Comments HEMOGLOBIN (BEAKER) (test code = 410) 7.0 GM/DL 13.7-17.5 L HEMATOCRIT (BEAKER) (test code = 411) 20.7 % 40.1-51.0 L POC-Lactic Acid, Ljnarb3730-53-66 04:05:00* Test Item Value Reference Range Interpretation Comments POC-Lactic Acid, Venous (test code = 2805) 1.6 mmol/L 0.9-1.7 TESTED AT [address] [address] Lab Interpretation (test code = 71612-5) Normal [facility]CT[facility] AC[facility], [id number] 04:05:00* Test Item Value Reference Range Interpretation Comments POC-LACTIC ACID, VENOUS (BEAKER) (test code = 2805) 1.6 mmol/L 0. 9-1.7 TESTED AT [address] [address] ZYLAMHWSTGXBE9703-06-92 03:40:00* Test Item Value Reference Range Interpretation Comments PROCALCITONIN (BEAKER) (test code = 3036) 1.26 ng/mL <0.05 H SEPSIS RISK (ng/mL)Low: 0.05-0.50Intermediate: 0.51-2.00High: > =2.18Ubmxhsy5088-05-87 03:37:00* Test Item Value Reference Range Interpretation Comments Ammonia (test code = 56843-4) 65 18- 72 mol/L Lab Interpretation (test code = 96368-7) [facility] 03:37[facility]* Test Item Value Reference Range Interpretation Comments AMMONIA (BEAKER) (test code = 348) 65 mol/L 18-72 PT/[id number] 02:35:00* Test Item Value Reference Range Interpretation [...] patie nts wiht mechanical heart valves.COMPREHENSIVE METABOLIC [id number] 02:26:00* Test Item Value Reference Range Interpretation [...] APPLICABLE FOR DIALYSIS PATIENTS. Specimen markedly ictericTROPONIN [id number] 02:24:00* Test Item Value Reference Range Interpretation [...] acidosis, acute neurological disease, and per sistent tachyarrhythmia.NMLIIBBZE3046-13-39 02:21:00* Test Item Value Reference Range Interpretation Comments MAGNESIUM (BEAKER) (test code = 627) 2.1 mg/dL 1.6-2.6 Specimen slightly hemolyzed POCT-LACTIC ACID, [id number] 02:17:00* Test Item Value Reference Range Interpretation Comments POC-LACTIC ACID, VENOUS (BEAKER) (test code = 2805) 4.0 mmol/L 0. 9-1.[address] [facility] [address] [facility] [address] CBC W/PLT COUNT & AUTO SDNOUKWJPCEJ6197-69-66 02:09:00* Test Item Value Reference Range Interpretation [...] % 0-1 RAD, CHEST, 1 VIEW, NON [id number] 01:50:00Reason for exam:->chest painShould this be performed [...] place. Impression: No acute abnormality. Signed: Katherine Reichbarneyort Verified Date/Time: 12/21/2018 01:50:02 , KNEE, COMPLETE (4 VIEWS), [id number] 01:49:00Reason for exam:->LACERATIONFINAL REPORT CLINICAL HISTORY: Trauma [...] Katherine Reich MDReport Verified Date/Time: 12/21/2018 01:49:02 knee complete 4 views tgqim0102-14-53 01:49:00Interface, External Ris In - 12/21/2018 1:51 [...] joint effusion is present. Signed: Katherine Reich MDRbarneyort Verified Date/Time: 12/21/2018 01:49:02 [facility] 2018-12-21 01:10:14HaVíctor webster MD 12/24/2018 4:23 [...] patient's condition and review of old charts. [facility] [id number] 07:44:00* Test Item Value Reference Range Interpretation Comments SCAN RESULT (test code = 7056606) Manual Ciquirlogfqv9084-60-54 15:07:00* Test Item Value Reference Range Interpretation [...] 1+ few Lab Interpretation (test code = 28042-8) Abnormal [facility] W/PLT COUNT & AUTO SNKSKAFADCWV5064-97-23 15:07:00* Test Item Value Reference Range Interpretation [...] (BEAKER) (test code = 966) 1+ few YLOJCMHOEW1738-68-48 14:49:00* Test Item Value Reference Range Interpretation Comments PHOSPHORUS (BEAKER) (test code = 604) 2.4 mg/dL 2.3-4.7 ANG, TUNNELED CATHETER AMYBRVDSM1271-20-02 10:01:00Reason for exam:->please place tunnelled hd cath for patient on dialysisReason for exam:->patient will need ffp therapeutic recreation specialist to procedure due to high inr on [...] the patient's medical record by the nurse. Production Machine Operator: Regis Ortega MD. Yarn Bleaching Machine Operator: None. Approach: Right internal jugular vein Estimated [...] by blunt dissection. A 19 cm right Luxembourger Duraflow 2 catheter was brought through the [...] MDReport Verified Date/Time: 11/15/2018 10:01:43 Reading Location: [facility] B1 P04 8 Angio Body Reading Room Tunneled Catheter Hqbgzckrf1109-22-44 10:01:00Interface, External Ris In - 11/15/2018 10:03 [...] the patient's medical record by the nurse. [facility] Surplus Property Disposal Agent: Regis Ortega MD. Yarn Bleaching Machine Operator: None. Approach: Right internal jugular vein Estimated [...] by blunt dissection. A 19 cm right Luxembourger Duraflow 2 catheter was brought through the [...] MDReport Verified Date/Time: 11/15/2018 10:01:43 Reading Location: [facility] P04 8 Angio Body Reading Room [facility] 2018-11-15 07:46:00* Test Item Value [...] 46 U/L 6-55 Specimen markedly ictericBASIC METABOLIC [id number] 07:46:00* Test Item Value Reference Range Interpretation [...] Specimen markedly ictericCBC W/PLT COUNT & AUTO LBUKZNCJSRWC5759-01-46 06:23:00 * Test Item Value Reference Range [...] = 2801) 2 % 0-1 H PROTHROMBIN TIME/XQF9979-72-51 06:20:00* Test Item Value Reference Range Interpretation [...] for patie nts wiht mechanical heart valves.BLOOD MLLKBUQ8245-33-37 02:01:00* Test Item Value Reference Range Interpretation Comments CULTURE (BEAKER) (test code = 1095) No growth in 5 days BLOOD ZQXMNGL9260-88-46 02:01:00* Test Item Value Reference Range Interpretation Comments CULTURE (BEAKER) (test code = 1095) No growth in 5 days HEPATIC FUNCTION [id number] 08:23:00* Test Item Value Reference Range Interpretation [...] U/L 6-55 H Specimen markedly ictericBASIC METABOLIC [id number] 08:15:00* Test Item Value Reference Range Interpretation [...] APPLICABLE FOR DIALYSIS PATIENTS. Specimen markedly ictericPROTHROMBIN TIME/[id number] 05:54:00* Test Item Value Reference Range Interpretation [...] mechanical heart valves.CBC W/PLT COUNT & AUTO RWIKYOMOJEQI9388-75-19 05:45:00* Test Item Value Reference Range Interpretation [...] = 2801) 2 % 0-1 H Tissue Tsek2192-30-75 14:34:00* Test Item Value Reference Range Interpretation Comments Case Report (test code = 104) Surgical Pathology Repor t Case: [id number] Authorizing Provider: Devyn Lantigua MD Collected: 11/10/2018 1325 Ordering Location: [address] Received: 11/11/2018 0818 Service Pathologist: Be Arenas MD Specimens: A) - Polyp, Colon - Sigmoid, sigmoid polyp bx B) - Cecum, cecum ulcer bx ADDENDUM (test code = 3381) k8wwuMKtOMIqhVAcBqJdYHUfLWDyu3glAIEzlSMeFhPyUiKePcAeMixvxRRvKISrTbKvs2wkn003iFXo i8obDCGwRzO9jILpKJCwkCTqV610j5xev8nucbKycQQ7FSYbYPP6PUamnrGcjgQ2NVstxRWhZgP6ZLdl imEnCTycviOzbeRzSnx3TJFtO377OUO1mPgrq4wdVL T9KXPxUNHmLyJlNj6hyZAfA800FFNvFOXPGZGgyIe5BTSrjdJallFgcIYTp186I921s5fsKOLceeHovA xQzhfmo3ucD257ONAvjKZoirBzMmEpUGKhyAGaeOJ9YZAoRG8zetjtRQbyHSniCXAgvzR0NXImnFDrP8 LgGEVjQB2wcgpqLRZ7JMbsIRAbHOH7TmRjMMThx5Cx gqv5HeLmmb7mph18MON2f0FkvNjiJOT6BKA9MzOxYg5qsJBiHRZrTA8zEgTnlDUaESMgrm54aLllJOvz pwRftV6ySbZjUIQfrJDnNBHmZU6ezCOdFGUuqJ9zuistQMMbQuWoowpvHNUlmHitzvFlZh9epOufQTD7 SDvyP0cfeN8uAlP2GDrcK1paaV5zQRp7MHqqzHK4PX AyiL9mAB7lkoawd6cjMWlhANvgWFBojvE2hzV2RIAfpSXmZ7JnyA9bRADjAK3jnluaq9uwCVE4UNsaBM NvXWH1FeVzHOYlz0Yoyye7AaUeh1SrtDTfNXkvU05ok121ZXBfynQwO6hywACycslpxYWzignpHQbgsm K9TGZhULCyKNpaCRKmUBGwMuJapQSbXjOdYyIroCvj sXkeUWivJqIcNUWcDSsrW4btCnHzZxCbSCJNdR42vs4krVOgjpXgPt3dDNwJTpQlFOhBAbQfFGYfWOPG FWKeaXKdBu7ydJEuMO4nVSNpd5UlPATqJPRlMXNfOArsjGu2QE2zqGKmtC== DIAGNOSIS (test code = 3220) o5tavDJhLNXeg9ghNSGlhEWsRxFbYcIjUlAvOcnlnLIjJUehxsHtAPmwf7QwY2IhQbSuFHfdlcJpVIVc KlsosxszHDIjKLB4fdAmVYAnXFcsZTDaPBxmKw6pdNTjfHsnEqPoGWMzg2xnjjMBjzujwBv0n7djKGIf XhH1uRFfWGasA7lokyDifMFfMCWbDBd4tP23IJPubP 6fuQRvUHtbxfTjUqG5BNcfCRZzDzN6IJFdkEXmIEZpE1kzDTEoGSjqHXDyKSzvlFYyXRB9aDjpe4T3hF CfjDWuoIcbRzBuXjVwWNWKs3HrHEp7fJqxN6DtKSPgLiF8dBZwCIWrXGpeKDGbWLQoylB7lH97OXcqhi W8tXZuh5Sfl85wt168cW7vlRRvBBQ5PZBeVKWpmKXt DALrSCD9IAPcjFTwJ9k1CcFldREhW9X2WqHkpQXqL5W1EsIuvGErW5Z1GlKeeVPlMJTzrERxBg4zdECh zCZaqi1dac82UKG2r1XyuRtjNPU3VET0CkEjDi4grCQgCSSrDM5eBuFhvZMbVLCmhj69mAdvGXqobdMg iI2sPqGdQVLiyMIeMAHdKB5hySKlVJMioC6ohtktOM UxFdMqcfkcTKWpkNutokKdWd6srPfbNUU7XWblY1kvwG1bKpM0WKlxZ1jkbL4bNPb8ZSmflPQ3WIErlQ 2gQC0wcljdn6mmRfAtQP1yjqxqa6rjAwIhNY7vipm9h5vxTcDlAH4xuwqex1nkMhHuMMaqJWZewrhbMC Kar6UllfyjASFsn6IgG3MxhXdvG50ytGbmU24rIYOp eAyzjK1leGoxjK4gEgYzHyOaECkkpEswxPQvhtpaDWgsilXrYHejwqhxMEWnZZcxZ1gxTsYqCRGhuBrt SSnsr0RuZBLdOCXsPqZtAOKJLMDEIXFDO93PGWJoA58NZ18bTO7TMTWmNSLJLYnOAVCBG21ZMlgvUDQd SFlQRVJQTEFTVElDIFBPTFlQLlxwYXJccGFyIFBBUl WmZxNBJHJARFGQDI3EL6ndRx3OFGKDB8YTO2STDHERBGWZGugdvVCrIP7AAwNAVIIETavAQTVNKHmOUX JUC7jUUXfWISyILZljGQjWYAVKYMkYSuPTMsFtFxTWNS5ZXwCPNDYMCLAQEPYAPyPKAjzmYZNdMlRXNL JAXgJdMh4JDYeLHU1ERL9XLOOuSDBUV0TWILHQNHfz V8LtMJ6ILRQRCsHzF3PSN8sPB23GTwmqUKNkLh0rIC8CAAjOBP2FXJKzO7PuYG5QCB9CIJpEBi0FPHVL AxNSXdaPII2ALBOMBkGWTY1GAO2IZK9ywEAxDDIEJZRVJKSWUw1MGSyZFRGKCC2AGaPpMAJmuiPQUQ1A Ff7MWSQZSqQnEz0PMAVFAkAYRI6SGhlCEnClXXDNJV mZDtwjTDWZLH9DEF1yCK4vQm9DJE9REmvhFIYovTNuaMwldvHzURcui2OzRZwpUAUoSR1kiMqqJEAwPP 4aPPRnS7zncY2iily9SnHiLQQkZaR5SWHibaH3Mvt9DHYySXilg9vza8TeHQMtWGp1lEdxNcCmNYByv3 utuwFqFiZhDMPkRQXuAAMllVFrZ908e5vdl9fvgkZi jQJ9CIOnIZX6MBcmyySslbI7VEbjiJEmPvD8DSagbzVcMUbxtwOpihLtMcn1UPTuJ590FTT4oHkcc0ls HAP5OKPvOUZhVoHhPk8ikBHtL875SYVkNZLJLMCbdJj3ROOxrtEpydAsmISCv111A352e7ezVUGcioLb aJwCxvmrs1quP357LBUuoGSxrbJrUeXpZBGnfPEvwX C3OMWnJP6jcemjPNjzJZdrSYZmnrU4BALdfYFlE7RjQATwDG1duurrWAO9CQdoUCNnTKK7UaWgSPYpy3 Ptxwq7YbGopl7pxi82ZSO2g2VdeSzlDRF7HLV1JnXjQq4pzWHfWNOwWG1vRuOrcTBeQIPjho90mNgjBE daTKD3JEMoehWnd6Cnq7trVcBustLbV8rdU2ZwTJGe JCTlIICgYiYftpVmq9Voc0RrgAPzzTa5o0tyKBDzTIJubMogj9bfIAL4IGXrwUAjY1jvbK5yDMVpBO6f unozu6bvDLovTKfcDIIbjAZ4knU1EAWrmAZqR2XfdO8mYFJmAHogZJPbznz0HgApJk7aiWFhmJdiAGam YmtwYWdlXHBnbmNvbnRccGduZGVjXHBsYWluXHBsYW itRNQcCWTmHgDkpDovaEKaSnHkIiFcmPubuOgbUIloKiZaSPHcILejY5vhRpZsGjEzMcu6TGMgyNUuFV AkFdk0RMXocASiFRPFlVbidB5cVTDchYaegM8uuQU6BQWnygWwgDYTdU8rHNFUhS0kMzY2AhTeHbX9UQ QyNDlccGFyfX0= COMMENT (test code = 3359) i4synQUxDCHflYUwYiIrJWSvNFQpa9uwEADhaCYjEkCeQeUaRqOdFqzxvOTyOWYtPvBvr0cti886fPZr o6tsEZZmOgZ0sGUqWIBxkLXvJ658p0zop5btdrGfeEG1FPNuVAG1QBvpskNoreT3MJuetBHmDwT2USbc bhLrTMfgbdZuwhEwMcm7SIXxI090FNO0aTmvf3oyPU V0JDYkYUXkZtFnEe1nqPPxP605GBKjECPJYQEyoMd5SJTlmfLdkgWzgGDBx119X773h1tmHJLyzkFmtY dMsqwac6twY544VSIciAStlnPzNqQhIZXdtIMygVW5MKAeYW9ohdsySoDtEY8vwpokGxUbTR2kxqc4Hj EzPE0xeamkTkNtGTdlUCQzqqnhLUSda3QmmlmjDR5e O9Bpm7Y7iK1hcYMvRDTfkOBoVjVzLVAkbq8bxWFtLPosh8DyBVN1tuZ0oEHpdHVcUSDlSC79Kffur6Ou LtjyISS9WRStjkUuh7Zqi5adAxZprmTqZ8luS4KfWLTsEUMdDAUnGuGkonWnr4Wul1TnxAWjlBc3h6ou JRSxCHDruThwy6bpZYA2FBFcC1Q5uSNvc7jdAFzfOO FrbUX5fsfmSPooQHOeosB0ypfdZMhzYPBcjCM2rhtbVDotQZNyJjL3xjzfOQrnSXLkDRQ2EXfae544VT C6JYanAtedYGhkMWZxewRghrHndTzdJJScMQDeOZysLTSsWXmlFUCnRIVdFsNrsTnpwUfqbC2gNdHmEr OzGUjbZR3dKQLwB9wutRGhRIXaVILmF8ohKnHsfE9u mKdbUZbeuiTiOIBUMhBwOjwrSI6aoQ0yiFuhhS7suYRutVThhIScmBOlzHRoACXpxfTtjp0sDCFqieCi oI3mblPIOYYaTQ5rqnL0ylL0SFY7gXLitAagnVkjnWAauT9oeAdqjVtsedH8eoLiKPLpk0AdbEl6VDRt h6GrD2IlFBSfh8OseGz6CRKBYIBtxUlrXRPwGOKSQK KcP2M3YPZij0z8vJUfZOHtH2VrmFIfQLCxXLIzGEkwRW8xCNKzNLJjTB02WMUeGWZ7aQOil1Rhl40mj1 XqG1KtHYNyfiVlG0W5FxPAxWOsiS8bRIVnuZCxhrQhUBVkguPlPECkLUFvYTrbVE1tUX9cgtUpl7kjZ8 ncMA7jIKpdmLNqe1AcSZ7qzTbatZRxLCNkDINzP8Yra1RlzLklhQaywJBbVREtba1= CPT Code(s) (test code = 3357) l3pteMBjNNUqdKAgMvEyTDXvMSVvh3btADPzaYEqDjLwZaRgFnWuAzixrHDfNPXgKsHks7azt751xSCr t4niZZJvJsE7tUBgGWHanIBaR413p7gky1yuasCjxAB7VJKaHRO6QLebepRhlwO1OVxfmLCkAoA2GMjm rkYyRJjpxeJpuxPjVmz3CJPpY082LLR4yAymv3xaCH R2SBQgJDMmHhXpCm6gcNKcL897GJIyYPGUOBFozHl5YVRaafCmcnHwsEIGs393Y196i2usIMFzapXcuP hLiunuy3yhE711AMIslWLlgzRzTiYnXRGlkBBexGN7TWGwGR1darpfNuOwYM1upxfmMfMfKY6yvgs9Mh TuAZ3wdwzoOaHgUOtzNOZfpeexGVJbs7UhtcvsVZ3f O9Sel3G4wD1vtWMsYCUvoKYxZsNxZBQozk8qzCApAMytj4ItRCI8zbM2uKZwjWHwQISvIV25Stvsv2Gc YutaHYY0TMPvpbDix1Ano5smKsKamqAlI8upS8SgNYEaUDGeGZGsIoUugnJcd6Ibe9XhkLSfvYs9q2tb BNMxMVDnlBtgt5jaLSB1UDUeU1M9mDWme4faOWauWJ JfxKF1mvdzNOxmWQIqyoD0tgdjBRjfCDXseBA1ljhsHOpeVWOgSaD5gtegUGijGYSwWDE2USzld430HN X5UAbcNbrgXLjmGKNydzRqjvIjkHnxXDOlEPPvCBttSZVcEGffLSWsCSPoUjBpjQkmdMparR5uWtMlQg AqNVbiUS5rZKPkC0syyLKqZWLvWUUzI5mkVaYogZ4h hFrxXAyvgoClHNb6EsW4fIUkIVk1FxVrKGK8DGZ7GHg8QRVeii3= CLINICAL HISTORY (test code = 3356) f3syrWYzNLPxuYXfYsWmMGRaYVNdo6sgVYVxqPGgNgJyIgXcVzEkHocneMXjBLRvCvIwu9tjd383vLAe e4reOLBaYwD8uZQvDQZaeBVeD841t2vcr8txosFcjML9EJDnNTX1EUwnczGxxzA4XWljjDTjPxI0FScy ozSqREmmmyNtwmDzFce5IDEfH442ZJU0rCmyq7omBS A4SPItQZQwTjQlMn2jbJDaL925NUJeGMCMMAIpaJd2ZKQypbMdejJtjWGGg203W099f2lyOCSkdzAnsX bHdoghg7lmZ466WAAedGZodoQiJcTxZVAlpYLzyJD2QEEuIZ9avkudHxEhAA3yeldgNfNtYR2trvv8Ku RfRR7clkjxQqGnZUhxFXCijdxwTOGyf7XuhtzsWP1q E2Bav1W2mE8qcIQrDBGrmQToEhLcOUHcqv0jzFKsVXpgg1EbHMH7usX9bFRfaZRqUVPaWM23Nswwa3Jw QkdkQBK6YRGtakMhp8Mgk9nvJsZylzWeO4mrK9KnLVGkSYAgQRSwSbYnuoOmz8Xwr0GabYGqvNn7u3il MMUyNMMlcBlyd1apCUB7ERKbG9F0nCLig7suJXlmGC BjdJJ8xnuhIOayROJanvV8dsoaNJetENYtnQH4tvufKJdyAGRzLsZ6ehbiWYxhWPIqMOH5TIqec330MG C3EBfnKyxnZNylCBXcmkEldfTkwVxrTCRyTEAeFEgpNVMsESrdLTPxVBItIaJgyXaqxIgakG2pWdZzNv XgRWkmRS7tTCLdQ2bviIJfZMFtDHIgE5hrHlJmbE 0axIehBAhampYuEZMxaE0qYEPbcJfbnlGhnQYipP== SPECIMEN SOURCE (test code = 3377) e9btcPPuMMCbhTUhVmNjLYOiAQBka0fwRALnxYGgIqNvWiIsDhGrXqowaCIyFYIgCeLqn9hgg791dLSl a2asJSIwZeL0hWRbAZEacGVuD705m5wdf2lfhnXmdHR2YIXpGCU7YXyfyzNabyI6BSzgbNHeAnM6GJwh onQkNSlpmtRfwdQyHza0FHUuI736JFN4vGncn8aiLW M9TOUpMSYyZwHtFu5bfXUcC090CGZiCHSJEYQxnRx0DQOvdrLaciLxeHKVs962J246j0nhNNOtavXceE eMohdbj6oxY536DSAwpEMpbqEgFoGhNLUswVNnyMB3MMVwPJ0iqltvDjCcWA6ygnmmUmJcPX0btoh0Ba PcJY7vowyiAcOiQLqrHXNvbbcuVJVrj6YibrcaIP7h F4Bfj1B9zB5grEMbIFQevDChEyFbMATfuy7exSYeRVntv5RqTGD9eyN4xJEegVKzMIHiKX23Kseud5Fq LtslZYO9EAZnpjEub5Sqd3bdEkFnqxDyU3nuF1ZvUZBiCIKaPKIwHiEnsaBfk6Def9PzpXTgzVp1u3eg BFGkWIUwxYbdb8qcGUA5QFAoY2S5kDDmi0exVFkwMZ NmiIK8fejsMTfjTBPuvcI7xuygLCndLHRhpHO1mhocYWvlMQJyGmM2lxvsXMxqTTHdBBD7NWyze360EP J4NWfiXmejWRrkTQIggwRffrUfsTvcKCCyLZXhAFeuGCZaEFmbCLVnOIDiAnGvdWjjqEazdP6jNcYsNl HiEMuhFE0nTZVqR2wrkMPpSBDlSBPnC7idXzOawY7s mDerLLbsvaHhWNUeOMQbX74wrMRvqB3mzGRsPgoayGH2ThLFFxEFXSM4xHF6zNGdzfRzdL4uv8pmVCQx cn0= GROSS DESCRIPTION (test code = 3366) w6tnrOGbTQRibLDyZhGbQZDuFGIdz8jwWCAygQLbKlSuBiGuEyPdHtqkxVFpSWClWjEfd5tls322sRDc x7vgNTIeGjU6cMSdVJZidVObW367e2rqt9jtujQyhGY1WSHfGGX8OKumveDxycL2ZJyujKPxBoD5MGfd rxQgVMurnwNxckJcKmc0WJHhJ300ZRJ6dSdlt6vwBO P4RUKzDYWaCoSkIf9woSPmG968DQYtYFUHGLDpkQb6MRSeskYtdnFnmXIHc596E152q3qrLMKfbbNvtC cHtzxlf8ziM634AZNwzWLeyhVmOxAhGKYbxAYlcHE4FKRoED4fpxaoZnByEJ7nhapgDnTjMF1ywzd0So HhOS1zejbxWoOlBDwkATWlrgbvRUTrz3HkugtwVD8c Q0Rgc4I6zA6khTPxPRPueQLhVcRcJATwbo8dhJYpGDypu7DiCNA4qdU5mTRpjHFkNDZeKB56Gvbwg9Oc FlkiGLV9HJGgolAmi5Ezg5otHgXbehEjN2cjO9JzMNDmLXFoVUGvGxZxwlTrr2Avr9BzoISuiDc4r8uv KDVeIYLajDugh8pcEZB2ZLYgT5J6zMGkt5ctYUdcPP FcfFD8jgsoQTrwCGSpetT8vflqJEymDCJhhBH3mmbuPRkoCXXjDiB9rwmfPVzsULIrYTZ6LMmet023LX X6EIecQwfgPWeoPDQnxiEyiwTjtLzyUKXxIJKqVThfOUDrNYlbQSVoBAUnXdOhvAwgzCutmR0kLfEhGo HiREqaIL7gKCLiS9ehuYYxMFJgPWXfT1owMiGslZ4b uKhwHMyrkxUgMNBqddQcOV3eQhVyJGb3PWTblJ0xVg1reRUytO4tnRPjEDlcHPE2vWObPRExNKQcEYNs BC96R8SwcwHgKTmiOPLkXWDgkE6mXB08zSElfrYhzuWnTrXioPbrDFBnn9ivxw5lnQyjy3ozOoPaoeVn OAZuAaLhiHQ9IP6lk96lhFZ8kNSraTUiWrZsV76jyd HcDVmsdNAjOEmxIEN5Dr7fiLSbONFshuT6s7DbPIyvNWZzQlziFGGtjYOzHULeheMaTw5iJiGkBOs4PL XiiK5hQd3cfAQkrF8jbSGpELelXVJ2fMKoUPOdUIZaGTReEM06C2KsesTlLXgiSFNwWQVdwE2nAD19eE KckuQmpfUaEqPfQ6TcQeQgifZmUc66ghSscoXlH4Lj UTEbkJYuCXTaMuPftZpwp7NmCPHiAXfcCG61pdMqAX6faQ7jTNItWL9zZzIxF00cKLbpvONzDQHmTKTs pPTdwSG4SMUfwC6ddN62lsWftmURQS9bJ3dqHMjoXUUttz1= MICROSCOPIC DESCRIPTION (test code = 3371) g7yimMUuFDQevPLbIaKjWNOhVEYgw4hiIUMesUUlAyNgSgKkFfBuPqvdyLZuKKSyDeDif1gbc746fAYj v6dvMCNgOwF8zFVzSGRkxFPiJ891v4edx6xvizUlfTE9SZCkMHQ3UOjhovKbonS6FKdxwSVfKbN9QIga ctPqVEeqobCjyxGxCxj6QDMnO292HJD3hFggr7okUI A4BEVsTZRvAfAtZb7tzLPsP558FRGjEBRFENIxnUy8QAFnnbMpmfEztYRQn073T481s7zyVINczzAioU mNubwzu0enT627HFYztTRrehTmAuRlXJOxnVIzyOH5LIIkTA3hypkwAsSbQF4bqpeoImVyNS9rhxr1Gd IdYY8zoeaeCpJqBQgnSRMuovnaDGSmk0BabhwuIA5x L4Hyt6Y7jL2wmEUlTUQeyPPxNhHzCDLuxc6frJFxOCesw1AtCAK9zrI9fDOnzKTgZNZvZV08Eggov5Fd VoyqXSK8FKQwpaMgp2Rvf1ikOgTmlvUeG5wtZ2BqYVFdBBHbSHLmYjFedaVun3Exs2NbkYGfjNz5a4bk ZEObYTNysLocp4qdMUM3PZQpR5X5rQKqp2ruVAllTQ GxvJH3cvovFKalSUJxtyF8eowjPVjwKZWkmHY7axucVHvjTUExZlA5wixkDTzkBMIlEXA2XJlwn547DB H4SAetBotzSBblZQLxpjZnkwCthRyzJVCxTXRvEEytKSZoIMkoMCCuFIPlCtPdqCvyxHmexF3cOqYsBs LfQAijFJ9xETAcJ1zcxWPbOZVsZYCsU3rwVbLhyC9tsRmfOQohteEgERMocaEnrp5xPE2pKPRbym2= SPECIAL STUDIES (test code = 3376) [file] NjoNmbcK7nHtKpFqIjCZvpTBJ6 [facility] [id number] 14:34:00Surgical Pathology Report Case: [id number] Authorizing Provider: Devyn Lantigua MD Collected: 11/10/2018 1325 Ordering Location: [address] Received: 11/11/2018 0818 Service Pathologist: Be [...] TO FOLLOW. Signing Pathologist Direct Phone Line: [phone] s igned by Be Arenas MD on [...] is no morphologic or immunophenotypic evidence of lymphoma.[id number], 16004, 8834 6j2Vldkn polyps A. Sigmoid polyp biopsy. B. Cecum [...] HSV1, HSV2, CMV, CD20, CD3, CD5, CYCLIN Z5Fmnwjfq Slides Examined: In-house known positive controls were evaluated along with the test tissue. These control slides run a longside of the patients sample show appropriate staining. Internal positive and negative controls when available are evaluated Immunohistochemistry technical t esting was performed at [facility], Pathology Laboratory w here it was developed [...] to perform high complexity clinical lab oratory testing.[id number] 08:34:00* Test Item Value Reference Range Interpretation Comments PHOSPHORUS (BEAKER) (test code = 604) 2.3 mg/dL 2.3-4.7 HEMOGLOBIN AND [id number] 08:03:00* Test Item Value Reference Range Interpretation Comments HEMOGLOBIN (BEAKER) (test code = 410) 6.4 GM/DL 13.7-17.5 L HEMATOCRIT (BEAKER) (test code = 411) 19.1 % 40.1-51.0 L BASIC METABOLIC [id number] 06:42:00* Test Item Value Reference Range Interpretation [...] FOR DIALYSIS PATIENTS. Specimen markedly ictericHEPATIC FUNCTION [id number] 06:41:00* Test Item Value Reference Range Interpretation [...] Specimen markedly ictericCBC W/PLT COUNT & AUTO PLBWFFLVEXVO5494-53-82 06:36:00 * Test Item Value Reference Range [...] code = 2801) 1 % 0-1 PROTHROMBIN TIME/[id number] 06:29:00* Test Item Value Reference Range Interpretation [...] nts wiht mechanical heart valves.RAD, CHEST, 2 [id number] 23:58:00Reason for exam:->coughFINAL REPORT Chest, two views. [...] MDReport Verified Date/Time: 11/12/2018 23:58:30 Reading Location: [address] Consult Reading Room chest 2 [id number] 23:58:00Interface, External Ris In - 11/13/2018 12:00 [...] may represent mild volume overload. Signed: Andrew Sloaneport Verified Date/Time: 11/12/2018 23:58:30 Jovani manjarrez Location: [facility] C0[facility] Consult Reading Room [facility]HEPATIC FUNCTION [id number] 04:58:00* Test Item Value Reference Range Interpretation [...] U/L 6-55 H Specimen markedly ictericBASIC METABOLIC [id number] 04:50:00* Test Item Value Reference Range Interpretation [...] Specimen markedly ictericCBC W/PLT COUNT & AUTO [id number] 04:33:00 * Test Item Value Reference Range [...] code = 2801) 1 % 0-1 PROTHROMBIN TIME/[id number] 04:25:00* Test Item Value Reference Range Interpretation [...] patie nts wiht mechanical heart valves.Creatinine, random axehw7986-79-61 03:53:00* Test Item Value Reference Range Interpretation Comments Creatinine, Ur (test code = 2161-8) 225.8 mg/dL PHILLIP (test code = PHILLIP) Reference Range: No Normals [facility] CampusCREATININE, RANDOM [id number] 03:53:00* Test Item Value Reference Range Interpretation Comments CREATININE URINE (BEAKER) (test code = 375) 225.8 mg/dL Reference Range: No NormalsProtein, random sapod0660-46-52 03:50:00* Test Item Value Reference Range Interpretation Comments Protein, Urine (test code = 2888-6) 122 mg/dL 0-14 H Lab Interpretation (test code = 91555-3) Abnormal [facility] CampusPROTEIN, RANDOM [id number] 03:50:00* Test Item Value Reference Range Interpretation Comments PROTEIN, URINE (BEAKER) (test code = 1569) 122 mg/dL 0-14 H CBC W/PLT COUNT & AUTO [id number] 08:10:00* Test Item Value Reference Range Interpretation [...] U/L 6-55 H Specimen markedly ictericBASIC METABOLIC [id number] 06:17:00* Test Item Value Reference Range Interpretation [...] APPLICABLE FOR DIALYSIS PATIENTS. Specimen markedly ictericPROTHROMBIN TIME/[id number] 05:07:00* Test Item Value Reference Range Interpretation [...] patie nts wiht mechanical heart valves.HEPATIC FUNCTION [id number] 06:03:00* Test Item Value Reference Range Interpretation [...] U/L 6-55 H Specimen markedly ictericBASIC METABOLIC [id number] 05:52:00* Test Item Value Reference Range Interpretation [...] Specimen markedly ictericCBC W/PLT COUNT & AUTO ZVNVQNFQDTHD8587-69-94 05:17:00 * Test Item Value Reference Range [...] code = 2801) 1 % 0-1 PROTHROMBIN TIME/[id number] 05:07:00* Test Item Value Reference Range Interpretation [...] for patie nts wiht mechanical heart valves.BLOOD PTIFPQM7318-76-82 02:01:00* Test Item Value Reference Range Interpretation Comments CULTURE (BEAKER) (test code = 1095) No growth in 5 days BLOOD BJYVJRQ8182-16-47 02:01:00* Test Item Value Reference Range Interpretation Comments CULTURE (BEAKER) (test code = 1095) No growth in 5 days URINALYSIS W/ REFLEX URINE [id number] 00:30:00* Test Item Value Reference Range Interpretation [...] /LPF SOURCE(BEAKER) (test code = 2795) HEMODIALYSIS [id number] 15:25:00Melissa Lo RN 11/09/2018 4:53 PMProcedure fairly [...] 98.3 F (36.8 C) SpO2: 95% [facility] 2018-11-09 11:29:00* Test Item Value Reference Range Interpretation Comments PHOSPHORUS (BEAKER) (test code = 604) 2.3 mg/dL 2.3-4.7 HEPATIC FUNCTION [id number] 04:57:00* Test Item Value Reference Range Interpretation [...] Specimen markedly ictericCBC W/PLT COUNT & AUTO [id number] 04:42:00 * Test Item Value Reference Range [...] 2801) 2 % 0-1 H BASIC METABOLIC [id number] 04:41:00* Test Item Value Reference Range Interpretation [...] APPLICABLE FOR DIALYSIS PATIENTS. Specimen markedly ictericPROTHROMBIN TIME/[id number] 04:34:00* Test Item Value Reference Range Interpretation [...] patie nts wiht mechanical heart valves.HEPATIC FUNCTION [id number] 17:22:00* Test Item Value Reference Range Interpretation [...] U/L 6-55 H Specimen markedly icteric; notified #[id number] of correctionCandida antigen with reflex to ilzes5295-83-40 11:29:00* Test Item Value Reference Range Interpretation Comments Yari Antigen (test code = 77163-1) Positive [facility] CampusCANDIDA ANTIGEN [id number] 11:29:00* Test Item Value Reference Range Interpretation Comments Yari Antigen Titer (test code = 9501-8) 1:2 [facility]CANDIDA ANTIGEN WITH REFLEX TO [id number] 11:29:00* Test Item Value Reference Range Interpretation Comments YAIR ANTIGEN (AKER) (test code = 1782) Positive YARI ANTIGEN [id number] 11:29:00* Test Item Value Reference Range Interpretation Comments YARI ANTIGEN TITER ([facility]) (test code = 737) :2 CT, CHEST, WITH HIGH RESOLUTION, INTERSTITAL LUNG [id number] 11:29:00 Reason for exam:->liver transplant evaluationFINAL REPORT [...] MDReport Verified Date/Time: 11/08/2018 11:29:31 Reading Location: [facility] C013X Ortho Consult Reading Room chest with high resolution/ift5827-62-34 11:29:00 Interface, External Ris In - 11/08/2018 11:31 AM CDTFINAL REPORT PATIENT ID: [id number] of the chest, without contrast Clinical [...] Verified Da te/Time: 11/08/2018 11:29:31 Reading Location: [facility] C013X Ortho Consult Readi ng Room [facility] CampusMR, ABDOMEN, [id number] 08:24:00FINAL REPORT MRI of the abdomen. CLINICAL [...] rt Verified Date/Time: 11/08/2018 08:24:53 Reading Location: [facility] Reading Room - [place] [address] E [id number] 07:36:00* Test Item Value Reference Range Interpretation Comments CULTURE (BEAKER) (test code = 1095) No growth BASIC METABOLIC [id number] 06:13:00* Test Item Value Reference Range Interpretation [...] NOT APPLICABLE FOR DIALYSIS PATIENTS. Specimen markedly ydvbivbMMMWRPZBAG6596-84-72 06:07:00* Test Item Value Reference Range Interpretation Comments PHOSPHORUS (BEAKER) (test code = 604) 2.8 mg/dL 2.3-4.7 [id number] 06:07:00* Test Item Value Reference Range Interpretation Comments MAGNESIUM (BEAKER) (test code = 627) 2.2 mg/dL 1.6-2.6 PROTHROMBIN TIME/[id number] 05:21:00* Test Item Value Reference Range Interpretation [...] mechanical heart valves.CBC W/PLT COUNT & AUTO [id number] 05:03:00* Test Item Value Reference Range Interpretation [...] % 0-1 CBC W/PLT COUNT & AUTO [id number] 13:51:00* Test Item Value Reference Range Interpretation [...] WIT TOXIC GRANU LATIONS PRESENT BASIC METABOLIC [id number] 07:53:00* Test Item Value Reference Range Interpretation [...] FOR DIALYSIS PATIENTS. Specimen markedly ictericHEPATIC FUNCTION [id number] 07:53:00* Test Item Value Reference Range Interpretation [...] 80 U/L 6-55 H Specimen markedly ictericPROTHROMBIN TIME/[id number] 07:12:00* Test Item Value Reference Range Interpretation [...] mechanical heart valves.CBC W/PLT COUNT & AUTO [id number] 08:15:00* Test Item Value Reference Range Interpretation [...] U/L 6-55 H Specimen markedly ictericBASIC METABOLIC [id number] 04:58:00* Test Item Value Reference Range Interpretation [...] APPLICABLE FOR DIALYSIS PATIENTS. Specimen markedly ictericPROTHROMBIN TIME/[id number] 04:37:00* Test Item Value Reference Range Interpretation [...] for patie nts wiht mechanical heart valves.Urinalysis w/Zsmmucuvjbq1429-52-46 22:58:00* Test Item Value Reference Range Interpretation Comments Color, UA (test code = 5778-6) Dark Yellow Clarity, UA (test code = 5767-9) Clear Specific [place], UA (test code = 5811-5) 1.012 1.001-1.035 pH, UA (test code = 5803-2) 6.0 5.0-8.0 Protein, UA (test code = 87883-6) 20 mg/dL Negative A Glucose, UA (test code = 365) Negative Negative Ketones, UA (test code = 2514-8) Negative Negative Bilirubin, UA (test code = 74855-2) Positive Negative A Blood, UA (test code = 10033-9) Negative Negative Nitrite, UA (test code = 5802-4) Negative Negative Leukocytes, UA (test code = 5799-2) Negative Negative Urobilinogen, UA (test code = 07253-3) 3.0 mg/dL 0.2-1 H RBC, UA (test code = 55008-2) 0 /HPF WBC, UA (test code = 5821-4) 1 /HPF Bacteria, UA (test code = 19526-2) Occasional Mucus (test code = 8247-9) Rare Specimen Source (test code = 2795) Urine, Clean Catch Lab Interpretation (test code = 49370-5) Abnormal [facility]/ [id number] 22:58:00* Test Item Value Reference Range Interpretation [...] 2795) Urine, Clean Catch Hepatitis B surface wsijslqs0765-89-32 20:23:00* Test Item Value Reference Range Interpretation Comments Hep B S Ab (test code = 60396-2) <8.0 <8.0 mIU/mL Lab Interpretation (test code = 16816-5) Normal [facility]HEPATITIS [facility] SURFACE [id number] 20:23:00* Test Item Value Reference Range Interpretation Comments HEPATITIS B SURFACE ANTIBODY (BEAKER) (test code = 647) < mIU/mL <8.0 Hepatitis B core antibody, [id number] 20:22:00* Test Item Value Reference Range Interpretation Comments Hep B Core Total Ab (test code = 35305-4) Nonreactive Nonreactive Lab Interpretation (test code = 04606-2) Normal [facility] SURFACE [id number] 20:22:00* Test Item Value Reference Range Interpretation Comments HEPATITIS B SURFACE ANTIGEN (2) (BEAKER) (test code = 2585) Nonreactive Nonreactive HEPATITIS B CORE ANTIBODY, [id number] 20:22:00* Test Item Value Reference Range Interpretation Comments HEPATITIS B CORE TOTAL ANTIBODY (BEAKER) (test code = 497) N onreactive Nonreactive RAD, CHEST, 1 VIEW, NON [id number] 20:17:00Reason for exam:->pleuritic chest painShould this be [...] Pulmonary interstitial edema. No pneumothorax. Signed: Nicolás Ceballosepjane Verified Date/Time: 11/05/2018 20:17:29 , NON-TUNNELED DIALYSIS CATH, [id number] 19:49:00Reason for exam:->need dialysisFINAL REPORT PROCEDURE: Non-tunneled dialysis catheter placement Procedural PersonnelAttending physician(s): Srinivasan Chiang MDFeshae physician(s): Remedios Avila physician(s): Chetan Patel practice [...] site was prepared and draped using all kobuk ents of maximal sterile barrier technique including [...] was applied.Catheter placed: Schon XLCathete r size (Luxembourger): 14Catheter length (cm): 15Catheter flush: Heparin (1000 [...] Verified Date/Fernando e: 11/05/2018 19:49:40 Reading Location: [place] [address] Angio Body Reading Room non- tunneled dialysis catheter tvsnksqcu2961-45-12 19:49:00Interface, External Ris In - 11/05/2018 7:51 [...] time-out was performed prior to the procedure.Preparation (CO PS): The site was prepared and draped [...] sterile d ressing was applied.Catheter placed: Schon Rupertheter size (Luxembourger): 14Catheter length (cm): 15Catheter flush: Heparin (1000 [...] images and agree with the report as marioni lorena. Signed: Srinivasan Chiang MDReport Verified Date/Time: 11/05/2018 19:49:40 Read ing Location: [place] [address] Angio Body Reading Room [facility] W/PLT COUNT & AUTO [id number] 10:46:00* Test Item Value Reference Range Interpretation [...] comment: User comments: Slide comments: BASIC METABOLIC [id number] 06:48:00* Test Item Value Reference Range Interpretation [...] FOR DIALYSIS PATIENTS. Specimen markedly ictericHEPATIC FUNCTION [id number] 06:48:00* Test Item Value Reference Range Interpretation [...] 347) 82 U/L 6-55 H Specimen markedly euizcigSUTJMSAETS3557-32-14 06:44:00* Test Item Value Reference Range Interpretation Comments PHOSPHORUS (BEAKER) (test code = 604) 3.7 mg/dL 2.3-4.7 DHYFKGCNT7272-62-09 06:44:00* Test Item Value Reference Range Interpretation Comments MAGNESIUM (BEAKER) (test code = 627) 2.5 mg/dL 1.6-2.6 PT/[id number] 05:49:00* Test Item Value Reference Range Interpretation [...] RISK: Target INR is 2.5-3.5 for patie [facility] wi mechanical heart valves.PROTHROMBIN TIME/[id number] 05:48:00* Test Item Value Reference Range Interpretation [...] wiht mechanical heart valves.URINALYSIS W/ REFLEX URINE [id number] 20:41:00* Test Item Value Reference Range Interpretation [...] 1574) Rare SOURCE(BEAKER) (test code = 2795) [id number] 14:10:00* Test Item Value Reference Range Interpretation Comments AMMONIA (BEAKER) (test code = 348) 101 mol/L 18-72 H CBC W/PLT COUNT & AUTO [id number] 10:57:00* Test Item Value Reference Range Interpretation [...] (BEAKER) (test code = 474) 1+ few [id number] 10:35:00* Test Item Value Reference Range Interpretation Comments MAGNESIUM (BEAKER) (test code = 627) 2.4 mg/dL 1.6-2.6 HEPATIC FUNCTION [id number] 05:15:00* Test Item Value Reference Range Interpretation [...] U/L 6-55 H Specimen markedly ictericBASIC METABOLIC [id number] 05:14:00* Test Item Value Reference Range Interpretation [...] APPLICABLE FOR DIALYSIS PATIENTS. Specimen markedly ictericPROTHROMBIN TIME/[id number] 04:51:00* Test Item Value Reference Range Interpretation [...] patie nts wiht mechanical heart valves.HEPATIC FUNCTION [id number] 06:30:00* Test Item Value Reference Range Interpretation [...] 52 U/L 6-55 Specimen markedly ictericBASIC METABOLIC [id number] 06:30:00* Test Item Value Reference Range Interpretation [...] APPLICABLE FOR DIALYSIS PATIENTS. Specimen markedly ictericPROTHROMBIN TIME/[id number] 05:42:00* Test Item Value Reference Range Interpretation [...] mechanical heart valves.CBC W/PLT COUNT & AUTO EEYPNQBZJAAM6217-24-01 05:10:00* Test Item Value Reference Range Interpretation [...] = 2801) 1 % 0-1 BASIC METABOLIC [id number] 07:07:00* Test Item Value Reference Range Interpretation [...] FOR DIALYSIS PATIENTS. Specimen markedly ictericHEPATIC FUNCTION [id number] 07:06:00* Test Item Value Reference Range Interpretation [...] 347) 49 U/L 6-55 Specimen markedly ictericPROTHROMBIN TIME/[id number] 06:21:00* Test Item Value Reference Range Interpretation [...] mechanical heart valves.CBC W/PLT COUNT & AUTO [id number] 06:04:00* Test Item Value Reference Range Interpretation [...] code = 2801) 1 % 0-1 BLOOD [id number] 20:01:00* Test Item Value Reference Range Interpretation Comments CULTURE (BEAKER) (test code = 1095) No growth in 5 days BLOOD [id number] 20:01:00* Test Item Value Reference Range Interpretation Comments CULTURE (BEAKER) (test code = 1095) No growth in 5 days BASIC METABOLIC [id number] 08:05:00* Test Item Value Reference Range Interpretation [...] FOR DIALYSIS PATIENTS. Specimen markedly ictericHEPATIC FUNCTION [id number] 08:04:00* Test Item Value Reference Range Interpretation [...] 347) 37 U/L 6-55 Specimen markedly ictericPROTHROMBIN TIME/[id number] 06:14:00* Test Item Value Reference Range Interpretation [...] mechanical heart valves.CBC W/PLT COUNT & AUTO [id number] 06:13:00* Test Item Value Reference Range Interpretation [...] = 2801) 1 % 0-1 HEPATIC FUNCTION [id number] 06:59:00* Test Item Value Reference Range Interpretation [...] 35 U/L 6-55 Specimen markedly ictericBASIC METABOLIC [id number] 06:56:00* Test Item Value Reference Range Interpretation [...] Specimen markedly ictericCBC W/PLT COUNT & AUTO [id number] 05:54:00 * Test Item Value Reference Range [...] code = 2801) 1 % 0-1 PROTHROMBIN TIME/[id number] 05:46:00* Test Item Value Reference Range Interpretation [...] 2.5-3.5 for patie nts wiht mechanical heart valves.SODIUM, RANDOM [id number] 23:21:00* Test Item Value Reference Range Interpretation Comments SODIUM URINE (BEAKER) (test code = 243) 34 meq/L Reference Range: No NormalsBODY FLUID CULTURE + GRAM [id number] 10:20:00* Test Item Value Reference Range Interpretation Comments CULTURE (BEAKER) (test code = 1095) No growth GRAM STAIN RESULT (BEAKER) (test code = 1123) <1+ White blood cells seen GRAM STAIN RESULT (BEAKER) (test code = 06350) No organisms seen HEPATIC FUNCTION [id number] 05:14:00* Test Item Value Reference Range Interpretation [...] 33 U/L 6-55 Specimen markedly ictericBASIC METABOLIC [id number] 05:13:00* Test Item Value Reference Range Interpretation [...] Specimen markedly ictericCBC W/PLT COUNT & AUTO [id number] 04:24:00 * Test Item Value Reference Range [...] = 2801) 2 % 0-1 H PROTHROMBIN TIME/[id number] 04:21:00* Test Item Value Reference Range Interpretation [...] patie nts wiht mechanical heart valves.MISCELLANEOUS LAB [id number] 11:32:00* Test Item Value Reference Range Interpretation Comments SCAN RESULT (test code = 6271322) CBC W/PLT COUNT & AUTO [id number] 09:11:00* Test Item Value Reference Range Interpretation [...] comment: User comments: Slide comments: BASIC METABOLIC [id number] 05:26:00* Test Item Value Reference Range Interpretation [...] FOR DIALYSIS PATIENTS. Specimen markedly ictericHEPATIC FUNCTION [id number] 05:26:00* Test Item Value Reference Range Interpretation [...] 347) 32 U/L 6-55 Specimen markedly ictericPROTHROMBIN TIME/[id number] 04:51:00* Test Item Value Reference Range Interpretation [...] patie nts wiht mechanical heart valves.HEPATIC FUNCTION NSPOJ5732-07-18 05:37:00* Test Item Value Reference Range Interpretation [...] 28 U/L 6-55 Specimen markedly ictericBASIC METABOLIC [id number] 05:37:00* Test Item Value Reference Range Interpretation [...] Specimen markedly ictericCBC W/PLT COUNT & AUTO [id number] 04:10:00 * Test Item Value Reference Range [...] = 2801) 2 % 0-1 H PROTHROMBIN TIME/[id number] 04:07:00* Test Item Value Reference Range Interpretation [...] for patie nts wiht mechanical heart valves.BLOOD [id number] 20:01:00* Test Item Value Reference Range Interpretation Comments CULTURE (BEAKER) (test code = 1095) No growth in 5 days BLOOD [id number] 20:01:00* Test Item Value Reference Range Interpretation Comments CULTURE (BEAKER) (test code = 1095) No growth in 5 days U/S, EFMQRFQUKRUG4681-83-80 16:58:00Worsening leukocytosis, to rule out SBP. Please do not remove >3 LReason for exam:->ascites, rule out SBPFINAL REPORT Paracentesis dated 10/27/2018 Procedure: Ultrasound-guided paracentesis. Preprocedure diagnosis: Ascites Postprocedure diagnosis: Ascites Conscious sedation: None. Radiologist: Keith Garcia M.D. Yarn Bleaching Machine Operator: None Anesthesia: 1% Xylocaine mixed with sodium bicarbonate local anesthesia. Te chnique: After obtaining informed consent, ultrasound-guided paracentesis was p erformed under usual sterile technique. Using a 5 d[place] drainage catheter, punc ture was made in the right lower quadrant abdomen. Approximately 2000 cc of mayra r yellowish fluid was removed. Patient tolerated the procedure well without comp lication. Complication: None Graft/Implant: None Estimated Blood Loss: None Impr ession: Ultrasound-guided paracentesis. Signed: Keith Garcia MDReport Verified Da te/Time: 10/27/2018 16:58:17 Reading Location: [facility] [id number] CT Body Reading Viktoriya m FLUID CELL COUNT WITH [id number] 16:24:00* Test Item Value Reference Range Interpretation Comments APPEARANCE FLUID (BEAKER) (test code = 510) Slightly Hazy Clear A COLOR FLUID (BEAKER) (test code = 511) Kamila Colorless, Stra w A RBC FLUID (BEAKER) [...] code = 2873) EDTA Tube LACTIC ACID, [id number] 13:51:00* Test Item Value Reference Range Interpretation Comments LACTATE BLOOD VENOUS (2) (BEAKER) (test code = 2872) 0.8 mmol/L 0 .5-2.2 Sepsis screeningSpecimen markedly ictericBASIC METABOLIC [id number] 05:53:00* Test Item Value Reference Range Interpretation [...] FOR DIALYSIS PATIENTS. Specimen markedly ictericHEPATIC FUNCTION [id number] 05:51:00* Test Item Value Reference Range Interpretation [...] 347) 30 U/L 6-55 Specimen markedly ictericPROTHROMBIN TIME/ONY0280-30-59 05:07:00* Test Item Value Reference Range Interpretation [...] mechanical heart valves.CBC W/PLT COUNT & AUTO JLSGPWREWMVY0299-89-36 04:52:00* Test Item Value Reference Range Interpretation [...] 2801) 2 % 0-1 H U/S, ABDOMINAL, MQJLGVR1888-08-76 13:11:00Abdomen limited area? Add comment if clarification [...] ascites in the left abdomen. Signed: Kirt Sheffieldort Verified Date/Time: 10/26/2018 13:11:32 Reading Location: [facility] C013T Transitional Reading Room C METABOLIC [id number] 08:13:00* Test Item Value Reference Range Interpretation [...] FOR DIALYSIS PATIENTS. Specimen markedly ictericHEPATIC FUNCTION UPGYX4903-13-23 08:13:00* Test Item Value Reference Range Interpretation [...] Specimen markedly ictericCBC W/PLT COUNT & AUTO MLVMZLDXQZFP4048-50-10 05:46:00 * Test Item Value Reference Range [...] = 2801) 2 % 0-1 H PROTHROMBIN TIME/PNL1542-10-69 05:43:00* Test Item Value Reference Range Interpretation [...] for patie nts wiht mechanical heart valves.TISSUE [id number] 18:03:00Surgical Pathology Report Case: [id number] Authorizing Provider: Shy Parisi MD Collected: 10/19/2018 0856 Ordering Location: [address] Received: 10/21/2018 0830 Service Pathologist: Jefferson Martin MD Specimens: A) - Large Intestine, Colon - Cecum, HEALING ULCER BX B) - Polyp, Colon - Right/Ascending, TAKEN BY FRCP Given the 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 CPT: 73024; 61588 x 4Addendum electronica lly signed by Samina Arteaga MD on 10/25/2018 at 6:03 PMA. COLON, CECUM , HEALING ULCER, BIOPSY: - COLONIC MUCOSA WITH GRANULATION TISSUE, COMPATIBL E WITH HEALING ULCER - NEGATIVE FOR DYSPLASIA OR CARCINOMA (SEE COMMENT)B. C OLON, ASCENDING, POLYPECTOMY: - TUBULAR ADENOMA Signing Pathologist Dir ect Phone Line: [phone] signed by Jefferson Martin MD on 9 at 7:56 PMA. No dense lymphoid infiltrates are seen in the current biopsy. He matopathology consultation will be issued in an addendum.[id number] X 2Pre and postop diagnosis: gastrointestinal hemorrhage, [...] in toto in B1. CG/pl Performed.HEPATIC FUNCTION [id number] 04:53:00* Test Item Value Reference Range Interpretation [...] 35 U/L 6-55 Specimen markedly ictericBASIC METABOLIC JEISW8144-04-08 04:53:00* Test Item Value Reference Range Interpretation [...] APPLICABLE FOR DIALYSIS PATIENTS. Specimen markedly ictericPROTHROMBIN TIME/LKJ4839-60-00 04:27:00* Test Item Value Reference Range Interpretation [...] mechanical heart valves.CBC W/PLT COUNT & AUTO TMOHJQLYMZKX4774-04-83 04:13:00* Test Item Value Reference Range Interpretation [...] 2801) 2 % 0-1 H BASIC METABOLIC NSRJS2619-10-02 05:54:00* Test Item Value Reference Range Interpretation [...] FOR DIALYSIS PATIENTS. Specimen markedly ictericHEPATIC FUNCTION SXSKK7047-41-17 05:54:00* Test Item Value Reference Range Interpretation [...] = 347) 31 U/L 6-55 Specimen markedly ccvrpblYJMVXCGVSZ4548-02-47 05:53:00* Test Item Value Reference Range Interpretation Comments PHOSPHORUS (BEAKER) (test code = 604) 2.0 mg/dL 2.3-4.7 L DQVAYYZCQ9552-47-30 05:53:00* Test Item Value Reference Range Interpretation Comments MAGNESIUM (BEAKER) (test code = 627) 2.2 mg/dL 1.6-2.6 CBC W/PLT COUNT & AUTO FYECXKWMGNWR4883-36-21 05:27:00* Test Item Value Reference Range Interpretation [...] = 2801) 2 % 0-1 H PROTHROMBIN TIME/HII2970-11-01 05:27:00* Test Item Value Reference Range Interpretation [...] patie nts wiht mechanical heart valves.BASIC METABOLIC [id number] 11:14:00* Test Item Value Reference Range Interpretation [...] FOR DIALYSIS PATIENTS. ADD-ONSpecimen markedly ictericMISCELLANEOUS LAB [id number] 07:36:00* Test Item Value Reference Range Interpretation Comments SCAN RESULT (test code = 9284012) HEPATIC FUNCTION CEGIK3314-74-06 05:32:00* Test Item Value Reference Range Interpretation [...] = 347) 33 U/L 6-55 Specimen markedly qrinbtvDPFGZQTPNB7213-45-93 05:21:00* Test Item Value Reference Range Interpretation Comments PHOSPHORUS (BEAKER) (test code = 604) 2.2 mg/dL 2.3-4.7 L FFYYODYAZ3310-21-48 05:21:00* Test Item Value Reference Range Interpretation Comments MAGNESIUM (BEAKER) (test code = 627) 2.2 mg/dL 1.6-2.6 PROTHROMBIN TIME/SOP1323-55-99 05:00:00* Test Item Value Reference Range Interpretation [...] mechanical heart valves.CBC W/PLT COUNT & AUTO TVBQUCQXBPYZ1855-50-30 04:51:00* Test Item Value Reference Range Interpretation [...] = 2801) 2 % 0-1 H BLOOD ZXPYNDM5421-05-80 20:01:00* Test Item Value Reference Range Interpretation Comments CULTURE (BEAKER) (test code = 1095) No growth in 5 days BLOOD SFQDHRT0647-03-90 20:01:00* Test Item Value Reference Range Interpretation Comments CULTURE (BEAKER) (test code = 1095) No growth in 5 days URINALYSIS W/ REFLEX URINE YGLARID9462-45-61 17:08:00* Test Item Value Reference Range Interpretation [...] SOURCE(BEAKER) (test code = 2795) BASIC METABOLIC ZSJSY8824-94-16 10:18:00* Test Item Value Reference Range Interpretation [...] Specimen markedly ictericCBC W/PLT COUNT & AUTO TSPQPFSJZZAG5670-02-96 09:06:00 * Test Item Value Reference Range [...] 347) 37 U/L 6-55 Specimen markedly ictericPROTHROMBIN TIME/WAY1787-60-02 06:10:00* Test Item Value Reference Range Interpretation [...] 2.5-3.5 for patie nts wiht mechanical heart valves.PERIPHERAL BLOOD SMEAR - PATHOLOGIST REVIEW 2018-10-21 15:06:00* Test Item Value Reference Range Interpretation Comments RBC MORPHOLOGY (BEAKER) (test code = 2846) Polychromasia WBC MORPHOLOGY (BEAKER) (test code = 2847) Toxic Granulation PERIPHERAL SMR REVIEW (BEAKER) (test code = 2640) Cell counts confi rmed. RQRB-GHMOXKEECRY-1079 (BEAKER) (test code = 2849) Colleen Arteaga [...] Slide comments: CBC W/PLT COUNT & AUTO RJWQYFBAAYYL2532-70-93 09:56:00* Test Item Value Reference Range Interpretation [...] 0 /100 WBC 0 -0 BASIC METABOLIC LUJCL3388-42-47 09:01:00* Test Item Value Reference Range Interpretation [...] DIALYSIS PATIENTS. Specimen markedly ictericVITAMIN B12 AND ODKDWN7903-95-36 08:56:00* Test Item Value Reference Range Interpretation Comments VITAMIN B12 (BEAKER) (test code = 774) > pg/mL 213-816 H FOLATE (BEAKER) (test code = 362) 15.2 ng/mL >=7.0 RETICULOCYTE RJOYQ2475-01-37 06:56:00* Test Item Value Reference Range Interpretation Comments RETICULOCYTE COUNT PCT (BEAKER) (test code = 575) 8.0 % 0.5- 1.8 H HEPATIC FUNCTION [id number] 06:35:00* Test Item Value Reference Range Interpretation [...] = 347) 34 U/L 6-55 Specimen markedly guxifflDRMYIVUDCGV8963-48-93 06:12:00* Test Item Value Reference Range Interpretation Comments HAPTOGLOBIN (BEAKER) (test code = 366) 67 mg/dL 14-258 PROTHROMBIN TIME/IRI4807-15-65 05:26:00* Test Item Value Reference Range Interpretation [...] 452 U/L 125-2 20 H BASIC METABOLIC ZZDCK0755-04-88 07:58:00* Test Item Value Reference Range Interpretation [...] FOR DIALYSIS PATIENTS. Specimen markedly ictericHEPATIC FUNCTION TXEKL3043-88-07 07:38:00* Test Item Value Reference Range Interpretation [...] = 347) 26 U/L 6-55 Specimen markedly falrndpDGEIORXWX2018-75-47 07:36:00* Test Item Value Reference Range Interpretation Comments MAGNESIUM (BEAKER) (test code = 627) 2.2 mg/dL 1.6-2.6 YZGQCQLYBB5171-19-16 07:36:00* Test Item Value Reference Range Interpretation Comments PHOSPHORUS (BEAKER) (test code = 604) 2.8 mg/dL 2.3-4.7 CBC W/PLT COUNT & AUTO PLKUHYFNKGKF8842-85-17 06:58:00* Test Item Value Reference Range Interpretation [...] = 2801) 2 % 0-1 H PROTHROMBIN TIME/SXV7395-76-06 06:50:00* Test Item Value Reference Range Interpretation [...] mechanical heart valves.CBC W/PLT COUNT & AUTO YSDRBNIRSSVN9603-59-20 22:22:00* Test Item Value Reference Range Interpretation [...] 0 -0 CBC W/PLT COUNT & AUTO EIXMWSDEVUJN6168-20-46 16:47:00* Test Item Value Reference Range Interpretation [...] 0 -0 CBC W/PLT COUNT & AUTO OFEMASEXTUAG0494-52-29 09:23:00* Test Item Value Reference Range Interpretation [...] = 347) 20 U/L 6-55 Specimen markedly umbeddxDKVEVIBHQ9276-44-36 05:23:00* Test Item Value Reference Range Interpretation Comments MAGNESIUM (BEAKER) (test code = 627) 2.2 mg/dL 1.6-2.6 BASIC METABOLIC ZIMGK0607-26-29 05:23:00* Test Item Value Reference Range Interpretation [...] NOT APPLICABLE FOR DIALYSIS PATIENTS. Specimen markedly vaopqchAAYMOTVFRY8146-03-03 05:23:00* Test Item Value Reference Range Interpretation Comments PHOSPHORUS (BEAKER) (test code = 604) 1.6 mg/dL 2.3-4.7 L PROTHROMBIN TIME/VAE4821-01-78 04:53:00* Test Item Value Reference Range Interpretation Comments PROTIME (BEAKER) (test code = 759) 19.6 seconds 11.9-14.2 H INR (BEAKER) (test code = 370) 1.8 <=5.9 RECOMMENDED COUMADIN/WARFARIN INR THERAPY RANGESSTANDARD DOSE: 2.0 - 3.0 Inclu herb: PROPHYLAXIS for venous thrombosis, systemic embolization; TREATMENT for giulia ous thrombosis and/or pulmonary embolus.HIGH RISK: Target INR is 2.5-3.5 for pat ients with mechanical heart valves.CREATININE, RANDOM [id number] 02:02:00* Test Item Value Reference Range Interpretation Comments CREATININE URINE (BEAKER) (test code = 375) 44.3 mg/dL Reference Range: No NormalsSODIUM, RANDOM UMKLJ8841-16-01 02:02:00* Test Item Value Reference Range Interpretation Comments SODIUM URINE (BEAKER) (test code = 243) 93 meq/L Reference Range: No NormalsUREA NITROGEN, RANDOM JKLYG2903-30-02 02:02:00* Test Item Value Reference Range Interpretation Comments UREA NITROGEN URINE (BEAKER) (test code = 538) 120 mg/dL Reference Range: No NormalsCBC W/PLT COUNT & AUTO GLUUWQVSSGZV0059-27-85 20:17:00* Test Item Value Reference Range Interpretation [...] Slide comments: CBC W/PLT COUNT & AUTO VSMLBPYLZLKB5292-09-11 13:37:00* Test Item Value Reference Range Interpretation [...] Slide comments: CBC W/PLT COUNT & AUTO ARVLHBOTSEOF9292-16-89 10:50:00* Test Item Value Reference Range Interpretation [...] comment: User comments: Slide comments: LACTIC ACID, [id number] 07:43:00* Test Item Value Reference Range Interpretation Comments LACTATE BLOOD VENOUS (2) (BEAKER) (test code = 2872) 0.9 mmol/L 0 .5-2.2 Specimen slightly hemolyzed Specimen markedly ictericHEPATIC FUNCTION [id number] 06:45:00* Test Item Value Reference Range Interpretation [...] 19 U/L 6-55 Specimen markedly ictericBASIC METABOLIC KLHTX4532-19-36 06:44:00* Test Item Value Reference Range Interpretation [...] APPLICABLE FOR DIALYSIS PATIENTS. Specimen markedly ictericPROTHROMBIN TIME/XCM3367-14-74 05:44:00* Test Item Value Reference Range Interpretation [...] mechanical heart valves.CBC W/PLT COUNT & AUTO JVLPZOOSQUEC2589-64-42 21:39:00* Test Item Value Reference Range Interpretation [...] comments: Slide comments: URINALYSIS W/ REFLEX URINE [id number] 18:43:00* Test Item Value Reference Range Interpretation [...] SOURCE(BEAKER) (test code = 2795) BASIC METABOLIC [id number] 18:23:00* Test Item Value Reference Range Interpretation [...] FOR DIALYSIS PATIENTS. Specimen markedly ictericU/S, ABDOMINAL, [id number] 17:43:00With doppler Reason for exam:->elevated liver enzymes, [...] MDReport Verified Date/Time: 10/17/2018 17:43:28 Reading Location: [facility] C013W Consult Reading Room U/S, DUPLEX, [id number] 17:43:00With doppler Reason for exam:->elevated liver enzymes, [...] Verified Date /Time: 10/17/2018 17:43:28 Reading Location: [facility] C013W Consult Reading Room [id number] 17:35:00* Test Item Value Reference Range Interpretation Comments MAGNESIUM (BEAKER) (test code = 627) 2.3 mg/dL 1.6-2.6 CREATINE KINASE (CK)2018-10-17 16:29:00* Test Item Value Reference Range Interpretation Comments CREATINE KINASE TOTAL (BEAKER) (test code = 380) 29 U/L 29-20 0 VCGXYYZIIFUCL6178-01-67 16:11:00* Test Item Value Reference Range Interpretation Comments PROCALCITONIN (BEAKER) (test code = 3036) 0.71 ng/mL <0.05 H SEPSIS RISK (ng/mL)Low: 0.05-0.50Intermediate: 0.51-2.00High: > =2.01LACTIC ACID, UPIBSP1714-00-78 15:42:00* Test Item Value Reference Range Interpretation Comments LACTATE BLOOD VENOUS (2) (BEAKER) (test code = 2872) 1.2 mmol/L 0 .5-2.2 Specimen slightly hemolyzed Specimen markedly ictericCBC W/PLT COUNT & AUTO YKMFIADVTNIK5112-24-45 15:29:00 * Test Item Value Reference Range [...] = 413) 0 /100 WBC 0 -0 YIWQBHN4253-48-45 15:22:00* Test Item Value Reference Range Interpretation Comments ETHANOL (BEAKER) (test code = 400) < mg/dL <=10 CBC W/PLT COUNT & AUTO DUDLGMUYFRKX5603-41-63 14:47:00* Test Item Value Reference Range Interpretation [...] 21 U/L 6-55 Specimen markedly ictericBASIC METABOLIC IXXCT5470-21-31 08:16:00* Test Item Value Reference Range Interpretation [...] PATIENTS. Specimen markedly ictericURINALYSIS W/ REFLEX URINE HJKBDKG3375-23-67 03:31:00* Test Item Value Reference Range Interpretation [...] (test code = 2795) Bilirubin Crystals seenBILIRUBIN, HEHCSR1986-53-40 00:59:00* Test Item Value Reference Range Interpretation Comments BILIRUBIN DIRECT (BEAKER) (test code = 706) 24.2 mg/dL 0.1-0.5 H Specimen slightly hemolyzed COMPREHENSIVE METABOLIC [id number] 00:58:00* Test Item Value Reference Range Interpretation [...] NOT APPLICABLE FOR DIALYSIS PATIENTS. Specimen markedly gpwrglrODXFRSYOV7228-40-51 00:13:00* Test Item Value Reference Range Interpretation Comments MAGNESIUM (BEAKER) (test code = 627) 1.5 mg/dL 1.6-2.6 L Specimen slightly hemolyzed PROTHROMBIN TIME/HSG8592-34-83 23:47:00* Test Item Value Reference Range Interpretation [...] mechanical heart valves.CBC W/PLT COUNT & AUTO LDWHZCOFOHJQ3531-17-49 23:43:00* Test Item Value Reference Range Interpretation [...] 0-1 H RAD, CHEST, 1 VIEW, NON [id number] 22:36:00Reason for exam:->SOBShould this be performed at [...] MDReport Verified Date/Time: 10/16/2018 22:36:02 Lactic Acid Msdug3470-54-79 20:02:00* Test Item Value Reference Range Interpretation Comments Lactic Acid Level (test code = Lactic Acid Level) 18.4 4.5- 19.8 [facility]23[facility]00 [facility] [address] [address] Patient Name: INDRA GALVAN JR MR #: [id number] : 1980 Age/Sex: 37/M Req #: [id number] Adm Physician: Ordered by: MARYLU DUQUE MD Report #: [id number] Location: ER Room/Bed: Procedure: NM/HEPTOBILIARY Exam Date: [...] COPY TO: MARYLU DUQUE MD CT ABDOMEN/PELVIS C0470-07-28 17:40:00 [address] [place] [address] Patient Name: INDRA GALVAN JR MR #: [id number] : 1980 Age/Sex: 37/M Req #: [id number] Adm Physician: Ordered by: MARYLU DUQUE MD Report #: [id number] Location: ER Room/Bed: Procedure: CT/CT ABDOMEN/PELVIS W [...] 10/16/181749 COPY TO: MARYLU DUQUE MD Prothrombin Zfwo3130-28-69 17:34:00* Test Item Value Reference Range Interpretation Comments Prothrombin Time (test code = 5902-2) 18.5 11.9-14.5 [facility] CenterProthromb Time International Ratio 2018-10-16 17:34:00* Test Item Value Reference Range Interpretation Comments Prothromb Time International Ratio (test code = 6301-6) 1.48 Oral Anticoagulant Therapy INR Values:1. Low Intensity Therapy 1.5 - 2.02 . Moderate Intensity Therapy 2.0 - 3.03. High Intensity Therapy(1) 2.5 - 3. 54. High Intensity Therapy(2) 3.0 - 4.05. Panic Value INR > 5.0 [facility] CenterAcetaminophen Xwnwq6018-15-28 17:30:00* Test Item Value Reference Range Interpretation Comments Acetaminophen Level (test code = 93847-5) < 3 10-30 L [facility] CenterUrine [id number] 16:09:00* Test Item Value Reference Range Interpretation Comments Urine WBC (test code = 5821-4) 0-5 0-5 [facility] [id number] 16:09:00* Test Item Value Reference Range Interpretation Comments Urine RBC (test code = 16672-7) 6-10 0-5 H [facility] CenterU[facility] Kvaqalvo7480-49-92 16:09:00* Test Item Value Reference Range Interpretation Comments Urine Bacteria (test code = 08724-6) MANY NONE H [facility] CenterU[facility] Epithelial Okfbp7781-21-69 16:09:00 * Test Item Value Reference Range Interpretation Comments Urine Epithelial Cells (test code = 70288-0) FEW NONE [facility] CenterU[facility] Amorphous Uggryrkd5822-74-16 16:09:00* Test Item Value Reference Range Interpretation Comments Urine Amorphous Sediment (test code = 8246-1) MODERATE FEW H [facility] CenterU[facility] Fine Granular Diuep9728-21-71 16:09:00* Test Item Value Reference Range Interpretation Comments Urine Fine Granular Casts (test code = 47509-6) 1-5 >0 H [facility] CenterU[facility] Nahke1570-71-17 15:58:00* Test Item Value Reference Range Interpretation Comments Urine Color (test code = 5778-6) BROWN YELLOW H [facility] CenterU[facility] Shykdwg1698-57-68 15:58:00* Test Item Value Reference Range Interpretation Comments Urine Clarity (test code = 99958-4) CLOUDY CLEAR H [facility] CenterUrine Specific Bffheyc1041-48-34 15:58:00 * Test Item Value Reference Range Interpretation Comments Urine Specific [place] (test code = 5811-5) 1.010 1.010-1.02 5 [facility] CenterU[facility] eK3688-58-36 15:58:00* Test Item Value Reference Range Interpretation Comments Urine pH (test code = 10869-6) 7 5-7 [facility] Center[facility] Leukocyte Awmenpgt6680-85-38 15:58:00* Test Item Value Reference Range Interpretation Comments Urine Leukocyte Esterase (test code = 99517-9) SMALL NEGATIV E [facility] CenterU[facility] Aofjuzk1418-75-45 15:58:00* Test Item Value Reference Range Interpretation Comments Urine Nitrite (test code = 92677-7) POSITIVE NEGATIVE H [facility] CenterU[facility] Pskorej5292-32-20 15:58:00* Test Item Value Reference Range Interpretation Comments Urine Protein (test code = 87914-9) 2+ NEGATIVE H [facility] CenterUrine Glucose (UA)2018-10-16 15:58:00* Test Item Value Reference Range Interpretation Comments Urine Glucose (UA) (test code = 82154-3) 2+ NEGATIVE H [facility] CenterUrine Fwwqcsq8806-83-28 15:58:00* Test Item Value Reference Range Interpretation Comments Urine Ketones (test code = 71041-5) TRACE NEGATIVE H [facility] CenterU[facility] Hisjtkatoaxc1673-99-69 15:58:00* Test Item Value Reference Range Interpretation Comments Urine Urobilinogen (test code = 59606-7) 1 0.2-1 [facility] Xsnroehnu1742-29-93 15:58:00* Test Item Value Reference Range Interpretation Comments Urine Bilirubin (test code = 1977-8) LARGE NEGATIVE [facility] CenterU[facility] Qivtt2043-86-77 15:58:00* Test Item Value Reference Range Interpretation Comments Urine Blood (test code = 17412-9) 3+ NEGATIVE [facility] CenterB-Type Natriuretic Wqlcjym8248-84-11 15:31:00* Test Item Value Reference Range Interpretation Comments B-Type Natriuretic Peptide (test code = 36345-1) 403.4 0-100 H [facility] CenterCreatine Kinase QN7204-11-61 15:20:00* Test Item Value Reference Range Interpretation Comments Creatine Kinase MB (test code = 16398-3) 0.40 0-5.0 [facility] CenterTroponin I7216-53-17 15:20:00* Test Item Value Reference Range Interpretation Comments Troponin I (test code = FUT0922) 0.012 0-0.300 [facility] Mcpyi4803-58-23 15:19:00* Test Item Value Reference Range Interpretation Comments Sodium Level (test code = 2951-2) 134 136-145 L [facility] CenterPotassium Nefcy8760-28-99 15:19:00* Test Item Value Reference Range Interpretation Comments Potassium Level (test code = 2823-3) 2.7 3.5-5.1 LL Results repeated and called to DR. KELSEY at 1518 on 10/16/18 by VICKY WHITTAKER. Read back and verified.[facility] CenterChloride Level 2018-10-16 15:19:00* Test Item Value Reference Range Interpretation Comments Chloride Level (test code = 2075-0) 93 98-107 L [facility] CenterCarbon Dioxide Tcdze7356-71-00 15:19:00* Test Item Value Reference Range Interpretation Comments Carbon Dioxide Level (test code = 2028-9) 28 22-29 [facility] CenterAnion Uff3188-82-78 15:19:00* Test Item Value Reference Range Interpretation Comments Anion Gap (test code = 43990-0) 15.7 8-16 [facility] CenterBlood Urea Yrjezfpy3221-64-19 15:19:00* Test Item Value Reference Range Interpretation Comments Blood Urea Nitrogen (test code = 3094-0) 9 7-26 [facility] CenterCreatinine2019-08-21 15:19:00* Test Item Value Reference Range Interpretation Comments Creatinine (test code = 2160-0) 1.47 0.72-1.25 H [facility] CenterBUN/Creatinine Puyrg8656-98-48 15:19:00* Test Item Value Reference Range Interpretation Comments BUN/Creatinine Ratio (test code = 3097-3) 6 6-25 [facility] CenterEstimat Glomerular Filtration Rate 2018-10-16 15:19:00* Test Item Value Reference Range Interpretation Comments Estimat Glomerular Filtration Rate (test code = 434380363) 53 >60 L Ranges were taken from the National Kidney Disease Education Program and the [facility] Foundation literature.Reference ranges:60 or greater: Oceiew12-41 ( for 3 consecutive months): Chronic kidney disease 15 or less: Kidney failureNorth [facility] Medical CenterGlucose Mnovg9178-88-57 15:19:00* Test Item Value Reference Range Interpretation Comments Glucose Level (test code = QAG9679) 144 74-118 H [facility] CenterCalcium Yqfif4193-20-83 15:19:00* Test Item Value Reference Range Interpretation Comments Calcium Level (test code = 04814-0) 8.5 8.4-10.2 [facility] CenterTotal Jwhsnvfnr6846-93-22 15:19:00* Test Item Value Reference Range Interpretation Comments Total Bilirubin (test code = 1975-2) > 25.0 0.2-1.2 H [facility] CenterAspartate Amino Transf (AST/SGOT) 2018-10-16 15:19:00* Test Item Value Reference Range Interpretation Comments Aspartate Amino Transf (AST/SGOT) (test code = Aspartate Amino Transf (AST/SGOT)) 98 5-34 H [facility] CenterAlanine Aminotransferase (ALT/SGPT) 2018-10-16 15:19:00* Test Item Value Reference Range Interpretation Comments Alanine Aminotransferase (ALT/SGPT) (test code = 1742-6) 22 0-55 [facility] CenterTotal Lukexeb0198-99-74 15:19:00* Test Item Value Reference Range Interpretation Comments Total Protein (test code = 2885-2) 6.6 6.5-8.1 [facility] CenterAlbumin2019-08-21 15:19:00* Test Item Value Reference Range Interpretation Comments Albumin (test code = 1751-7) 2.5 3.5-5.0 L [facility] CenterGlobulin2019-08-21 15:19:00* Test Item Value Reference Range Interpretation Comments Globulin (test code = 26009-4) 4.1 2.3-3.5 H [facility] CenterAlbumin/Globulin Ekjyw6773-77-41 15:19:00 * Test Item Value Reference Range Interpretation Comments Albumin/Globulin Ratio (test code = 1759-0) 0.6 0.8-2.0 L [facility] CenterAlkaline Wdxasuqpkkb0098-86-35 15:19:00* Test Item Value Reference Range Interpretation Comments Alkaline Phosphatase (test code = 6768-6) 159 40-150 H [facility] CenterCreatine Zswceh9138-79-72 15:19:00* Test Item Value Reference Range Interpretation Comments Creatine Kinase (test code = 2157-6) 39 30-200 [facility] CenterWhite Blood Jkago0267-49-70 14:59:00* Test Item Value Reference Range Interpretation Comments White Blood Count (test code = 6690-2) 18.65 4.8-10.8 H [facility] CenterRed Blood Auzvr5278-94-64 14:59:00* Test Item Value Reference Range Interpretation Comments Red Blood Count (test code = 789-8) 2.11 4.3-5.7 L [facility] CenterHemoglobin2019-08-21 14:59:00* Test Item Value Reference Range Interpretation Comments Hemoglobin (test code = 48456-6) 7.7 14.0-18.0 L [facility] CenterHematocrit2019-08-21 14:59:00* Test Item Value Reference Range Interpretation Comments Hematocrit (test code = 4544-3) 22.2 38.2-49.6 L [facility] CenterMean Corpuscular Afgtts5491-17-90 14:59:00* Test Item Value Reference Range Interpretation Comments Mean Corpuscular Volume (test code = 787-2) 105.2 81-99 H [facility] CenterMean Corpuscular Ffyajveemy7234-08-31 14:59:00* Test Item Value Reference Range Interpretation Comments Mean Corpuscular Hemoglobin (test code = 785-6) 36.5 28-32 H [facility] CenterMean Corpuscular Hemoglobin Concent 2018-10-16 14:59:00* Test Item Value Reference Range Interpretation Comments Mean Corpuscular Hemoglobin Concent (test code = 786-4) 34.7 31-35 [facility] [id number] 14:59:00* Test Item Value Reference Range Interpretation Comments Red Cell Distribution Width (test code = 72294-2) 14.0 11.7 -14.4 [facility] CenterPlatelet [id number] 14:59:00* Test Item Value Reference Range Interpretation Comments Platelet Count (test code = 777-3) 184 140-360 [facility] CenterNeutrophils (%) (Auto)2018-10-16 14:59:00 * Test Item Value Reference Range Interpretation Comments Neutrophils (%) (Auto) (test code = 72972-7) 80.6 38.7-80.0 H [facility] CenterLymphocytes (%) (Auto)2018-10-16 14:59:00 * Test Item Value Reference Range Interpretation Comments Lymphocytes (%) (Auto) (test code = 736-9) 5.3 18.0-39.1 L [facility] CenterMonocytes (%) (Auto)2018-10-16 14:59:00* Test Item Value Reference Range Interpretation Comments Monocytes (%) (Auto) (test code = 5905-5) 11.7 4.4-11.3 [facility] CenterEosinophils (%) (Auto)2018-10-16 14:59:00 * Test Item Value Reference Range Interpretation Comments Eosinophils (%) (Auto) (test code = 713-8) 0.5 0.0-6.0 [facility]Basophils (%) (Auto)2018-10-16 14:59:00* Test Item Value Reference Range Interpretation Comments Basophils (%) (Auto) (test code = 706-2) 0.3 0.0-1.0 [facility] CenterIM GRANULOCYTES %2018-10-16 14:59:00* Test Item Value Reference Range Interpretation Comments IM GRANULOCYTES % (test code = IM GRANULOCYTES %) 1.6 0.0- 1.0 H [facility] CenterNeutrophils # (Auto)2018-10-16 14:59:00* Test Item Value Reference Range Interpretation Comments Neutrophils # (Auto) (test code = 751-8) 15.0 2.1-6.9 H [facility] CenterLymphocytes # (Auto)2018-10-16 14:59:00* Test Item Value Reference Range Interpretation Comments Lymphocytes # (Auto) (test code = 93950-1) 1.0 1.0-3.2 [facility] CenterMonocytes # (Auto)2018-10-16 14:59:00* Test Item Value Reference Range Interpretation Comments Monocytes # (Auto) (test code = 742-7) 2.2 0.2-0.8 H [facility] CenterEosinophils # (Auto)2018-10-16 14:59:00* Test Item Value Reference Range Interpretation Comments Eosinophils # (Auto) (test code = 711-2) 0.1 0.0-0.4 [facility] CenterBasophils # (Auto)2018-10-16 14:59:00* Test Item Value Reference Range Interpretation Comments Basophils # (Auto) (test code = 704-7) 0.1 0.0-0.1 [facility] CenterAbsolute Immature Granulocyte (auto 2018-10-16 14:59:00* Test Item Value Reference Range Interpretation Comments Absolute Immature Granulocyte (auto (doug t code = Absolute Immature Granulocyte (auto) 0.30 0-0.1 H [facility] CenterAFB CULTURE + [id number] 07:33:00* Test Item Value Reference Range Interpretation Comments CULTURE (BEAKER) (test code = 1095) No acid-fast bacilli isolate d in 42 days AFB SMEAR (BEAKER) (test code = 994) No acid fast bacilli seen FUNGUS CULTURE + [id number] 17:11:00* Test Item Value Reference Range Interpretation Comments CULTURE (BEAKER) (test code = 1095) No fungus isolated in 28 days FUNGUS SMEAR (BEAKER) (test code = 1406) No fungi seen CREATINE KINASE (CK)2018-07-09 05:38:00* Test Item Value Reference Range Interpretation Comments CREATINE KINASE TOTAL (BEAKER) (test code = 380) 17 U/L 29-20 0 L [id number] 05:37:00* Test Item Value Reference Range Interpretation Comments MAGNESIUM (BEAKER) (test code = 627) 1.6 mg/dL 1.6-2.6 BASIC METABOLIC [id number] 05:37:00* Test Item Value Reference Range Interpretation [...] FOR DIALYSIS PATIENTS. Specimen moderately ictericHEPATIC FUNCTION [id number] 05:37:00* Test Item Value Reference Range Interpretation [...] 347) 83 U/L 6-55 H Specimen moderately [id number] 05:32:00* Test Item Value Reference Range Interpretation Comments PARTIAL THROMBOPLASTIN TIME (BEAKER) (test code = 760) 45.3 seconds 22.5-36.0 H PROTHROMBIN TIME/[id number] 05:31:00* Test Item Value Reference Range Interpretation [...] mechanical heart valves.CBC W/PLT COUNT & AUTO [id number] 05:08:00* Test Item Value Reference Range Interpretation [...] code = 2801) 1 % 0-1 POCT-GLUCOSE [id number] 22:05:00* Test Item Value Reference Range Interpretation Comments POC-GLUCOSE METER (BEAKER) (test code = 1538) 168 mg/dL 70-[address] [facility] [address] [facility] [address] [place], ESOPH, SWALLOW FUNCTION, WITH CINE OR [id number] 10:04:00Reason for exam:->evaluate swallow safety after prolonged [...] MDReport Verified Date/Time: 07/08/2018 10:04:01 Reading Location: [facility] C013X [facility] Consult Reading Room [id number] 06:21:00* Test Item Value Reference Range Interpretation Comments MAGNESIUM (BEAKER) (test code = 627) 1.7 mg/dL 1.6-2.6 BASIC METABOLIC [id number] 06:21:00* Test Item Value Reference Range Interpretation [...] FOR DIALYSIS PATIENTS. Specimen moderately ictericHEPATIC FUNCTION [id number] 06:21:00* Test Item Value Reference Range Interpretation [...] Specimen moderately ictericCBC W/PLT COUNT & AUTO [id number] 06:09:00* Test Item Value Reference Range Interpretation [...] (test code = 2801) 1 % 0-1 [id number] 05:49:00* Test Item Value Reference Range Interpretation Comments PARTIAL THROMBOPLASTIN TIME (BEAKER) (test code = 760) 45.0 seconds 22.5-36.0 H PROTHROMBIN TIME/[id number] 05:48:00* Test Item Value Reference Range Interpretation Comments PROTIME (BEAKER) (test code = 759) 15.7 seconds 11.7-14.7 H INR (BEAKER) (test code = 370) 1.3 <=5.9 RECOMMENDED COUMADIN/WARFARIN INR THERAPY RANGESSTANDARD DOSE: 2.0 - 3.0 Inclu herb: PROPHYLAXIS for venous thrombosis, systemic embolization; TREATMENT for giulia ous thrombosis and/or pulmonary embolus.HIGH RISK: Target INR is 2.5-3.5 for pat ients with mechanical heart valves.POCT-GLUCOSE [id number] 05:45:00* Test Item Value Reference Range Interpretation Comments POC-GLUCOSE METER (BEAKER) (test code = 1538) 104 mg/dL 70-110 TESTED AT [address] [address] POCT-GLUCOSE [id number] 00:02:00* Test Item Value Reference Range Interpretation Comments POC-GLUCOSE METER (BEAKER) (test code = 1538) 102 mg/dL 70-110 TESTED AT [address] [address] POCT-GLUCOSE [id number] 18:01:00* Test Item Value Reference Range Interpretation Comments POC-GLUCOSE METER (BEAKER) (test code = 1538) 91 mg/dL 70-110 TESTED AT [address] [address] POCT-GLUCOSE [id number] 12:34:00* Test Item Value Reference Range Interpretation Comments POC-GLUCOSE METER (BEAKER) (test code = 1538) 94 mg/dL 70-110 TESTED AT [address] [address] POCT-GLUCOSE [id number] 06:22:00* Test Item Value Reference Range Interpretation Comments POC-GLUCOSE METER (BEAKER) (test code = 1538) 111 mg/dL 70-110 H TESTED AT [address] [address] [id number] 06:14:00* Test Item Value Reference Range Interpretation Comments MAGNESIUM (BEAKER) (test code = 627) 1.8 mg/dL 1.6-2.6 BASIC METABOLIC [id number] 06:14:00* Test Item Value Reference Range Interpretation [...] FOR DIALYSIS PATIENTS. Specimen moderately ictericHEPATIC FUNCTION [id number] 06:14:00* Test Item Value Reference Range Interpretation [...] 347) 93 U/L 6-55 H Specimen moderately [id number] 05:42:00* Test Item Value Reference Range Interpretation Comments PARTIAL THROMBOPLASTIN TIME (BEAKER) (test code = 760) 43.0 seconds 22.5-36.0 H PROTHROMBIN TIME/[id number] 05:41:00* Test Item Value Reference Range Interpretation [...] mechanical heart valves.CBC W/PLT COUNT & AUTO [id number] 05:30:00* Test Item Value Reference Range Interpretation [...] code = 2801) 1 % 0-1 POCT-GLUCOSE [id number] 00:27:00* Test Item Value Reference Range Interpretation Comments POC-GLUCOSE METER (BEAKER) (test code = 1538) 110 mg/dL 70-110 TESTED AT [address] [address] POCT-GLUCOSE [id number] 17:58:00* Test Item Value Reference Range Interpretation Comments POC-GLUCOSE METER (BEAKER) (test code = 1538) 165 mg/dL 70-110 H TESTED AT [address] [address] POCT-GLUCOSE [id number] 12:01:00* Test Item Value Reference Range Interpretation Comments POC-GLUCOSE METER (BEAKER) (test code = 1538) 138 mg/dL 70-110 H TESTED AT [address] [address] [id number] 07:32:00* Test Item Value Reference Range Interpretation Comments PARTIAL THROMBOPLASTIN TIME (BEAKER) (test code = 760) 43.2 seconds 22.5-36.0 H PROTHROMBIN TIME/[id number] 07:31:00* Test Item Value Reference Range Interpretation Comments PROTIME (BEAKER) (test code = 759) 15.1 seconds 11.7-14.7 H INR (BEAKER) (test code = 370) 1.3 <=5.9 RECOMMENDED COUMADIN/WARFARIN INR THERAPY RANGESSTANDARD DOSE: 2.0 - 3.0 Inclu herb: PROPHYLAXIS for venous thrombosis, systemic embolization; TREATMENT for giulia ous thrombosis and/or pulmonary embolus.HIGH RISK: Target INR is 2.5-3.5 for pat ients with mechanical heart valves.[id number] 06:50:00* Test Item Value Reference Range Interpretation Comments MAGNESIUM (BEAKER) (test code = 627) 1.5 mg/dL 1.6-2.6 L BASIC METABOLIC [id number] 06:50:00* Test Item Value Reference Range Interpretation [...] FOR DIALYSIS PATIENTS. Specimen moderately ictericHEPATIC FUNCTION [id number] 06:50:00* Test Item Value Reference Range Interpretation [...] Specimen moderately ictericCBC W/PLT COUNT & AUTO [id number] 06:49:00* Test Item Value Reference Range Interpretation [...] code = 2801) 1 % 0-1 POCT-GLUCOSE [id number] 06:06:00* Test Item Value Reference Range Interpretation Comments POC-GLUCOSE METER (BEAKER) (test code = 1538) 165 mg/dL 70-[address] [facility] [address] [place] [address] POCT-GLUCOSE [id number] 00:15:00* Test Item Value Reference Range Interpretation Comments POC-GLUCOSE METER (BEAKER) (test code = 1538) 132 mg/dL 70-110 H TESTED AT [address] [address] POCT-GLUCOSE [id number] 21:55:00* Test Item Value Reference Range Interpretation Comments POC-GLUCOSE METER (BEAKER) (test code = 1538) 161 mg/dL 70-110 H TESTED AT [address] [address] POCT-GLUCOSE [id number] 17:57:00* Test Item Value Reference Range Interpretation Comments POC-GLUCOSE METER (BEAKER) (test code = 1538) 136 mg/dL 70-110 H TESTED AT [address] [address] TISSUE [id number] 16:12:00Surgical Pathology Report Case: [id number] Authorizing Provider: Neptali Kolb, Collected: 07/04/2018 0827 Ordering Location: [address] Received: 07/04/2018 1313 Pathologist: Be Arenas MD Specimen: Cecum, R/O lymphoma PART A CECAL BIOPSY:GRANULATION TISSUE.NO EVIDENCE OF LYMPHOMA OR CARCINOMA..IMMUNOSTAINS FOR CMV, HSV1, HSV2 ARE NEGATIVE.SPECIAL STAINS FOR FUNGAL ORGANISMS (GMS, PAS) ARE NEGATIVE.SEE DIAGNOSTIC COMMENT. Signing Pathologist Direct Phone Line: [phone] signed by Be Arenas MD on 07/05/2018 [...] the sampled material may not be fully outside 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 The prominent B cell population identified in the prior study ([id number]) is not identified in the current study. If there is a strong clinical concern for a malignant process, additional tissue based studies are recommended as the sampled material may not be fully outside 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 [address], [address], 10524P0, 23811J2Ynwew ulcer lower GI bleeding, rule out lymphomaCecum Received in formalin labeled as "cecum, rule out lymphoma" are multiple more than five red-guajardo tissue fragments ranging from 0.1 to 0.4 cm. The specimen is submitted in toto in one cassette. [place]/plperformedThe interpretation of this case included the use of immunohistochemistry or special stains.BLOCK A1- GMS, PAS, HSV1, HSV2, CD20, PAX5, CD3, AE2Wigbsoi Slides Exa mined: In-house known positive controls were evaluated along with the test tiss ue. These control slides run alongside of the patients sample show appropriate staining. Internal positive and negative controls when available are evaluated I mmunohistochemistry technical testing was performed at [facility], Pathology Laboratory where it was developed and [...] to perfo high complexity clinical laboratory testing.POCT-GLUCOSE [id number] 12:01:00* Test Item Value Reference Range Interpretation Comments POC-GLUCOSE METER (BEAKER) (test code = 1538) 157 mg/dL 70-[address] [facility] [address] [facility] [address] CBC W/PLT COUNT & AUTO [id number] 07:05:00* Test Item Value Reference Range Interpretation [...] Received comment: User comments: Slide comments: POCT-GLUCOSE [id number] 06:09:00* Test Item Value Reference Range Interpretation Comments POC-GLUCOSE METER (BEAKER) (test code = 1538) 148 mg/dL 70-[address] [facility] [address] [facility] [address] [id number] 05:03:00* Test Item Value Reference Range Interpretation Comments MAGNESIUM (BEAKER) (test code = 627) 1.7 mg/dL 1.6-2.6 BASIC METABOLIC [id number] 05:03:00* Test Item Value Reference Range Interpretation [...] FOR DIALYSIS PATIENTS. Specimen moderately ictericHEPATIC FUNCTION [id number] 05:03:00* Test Item Value Reference Range Interpretation [...] 347) 112 U/L 6-55 H Specimen moderately [id number] 04:56:00* Test Item Value Reference Range Interpretation Comments PARTIAL THROMBOPLASTIN TIME (BEAKER) (test code = 760) 49.3 seconds 22.5-36.0 H PROTHROMBIN TIME/[id number] 04:55:00* Test Item Value Reference Range Interpretation Comments PROTIME (BEAKER) (test code = 759) 16.0 seconds 11.7-14.7 H INR (BEAKER) (test code = 370) 1.4 <=5.9 RECOMMENDED COUMADIN/WARFARIN INR THERAPY RANGESSTANDARD DOSE: 2.0 - 3.0 Inclu herb: PROPHYLAXIS for venous thrombosis, systemic embolization; TREATMENT for giulia ous thrombosis and/or pulmonary embolus.HIGH RISK: Target INR is 2.5-3.5 for pat ients with mechanical heart valves.POCT-GLUCOSE [id number] 00:01:00* Test Item Value Reference Range Interpretation Comments POC-GLUCOSE METER (BEAKER) (test code = 1538) 144 mg/dL 70-[address] [facility] [address] [facility] [address] POCT-GLUCOSE [id number] 18:04:00* Test Item Value Reference Range Interpretation Comments POC-GLUCOSE METER (BEAKER) (test code = 1538) 113 mg/dL 70-[address] [facility] [address] [facility] [address] POCT-GLUCOSE [id number] 11:48:00* Test Item Value Reference Range Interpretation Comments POC-GLUCOSE METER (BEAKER) (test code = 1538) 92 mg/dL 70-[address] [facility] [address] [facility] [address] CBC W/PLT COUNT & AUTO [id number] 10:15:00* Test Item Value Reference Range Interpretation [...] Received comment: User comments: Slide comments: POCT-GLUCOSE [id number] 06:36:00* Test Item Value Reference Range Interpretation Comments POC-GLUCOSE METER (BEAKER) (test code = 1538) 107 mg/dL 70-[address] [facility] [address] [facility] [address] [id number] 05:42:00* Test Item Value Reference Range Interpretation Comments MAGNESIUM (BEAKER) (test code = 627) 1.9 mg/dL 1.6-2.6 Specimen slightly hemolyzed BASIC METABOLIC [id number] 05:42:00* Test Item Value Reference Range Interpretation [...] FOR DIALYSIS PATIENTS. Specimen moderately ictericHEPATIC FUNCTION [id number] 05:42:00* Test Item Value Reference Range Interpretation [...] 6-55 H Specimen slightly hemolyzed Specimen moderately [id number] 05:35:00* Test Item Value Reference Range Interpretation Comments PARTIAL THROMBOPLASTIN TIME (BEAKER) (test code = 760) 40.6 seconds 22.5-36.0 H PROTHROMBIN TIME/[id number] 05:34:00* Test Item Value Reference Range Interpretation Comments PROTIME (BEAKER) (test code = 759) 16.0 seconds 11.7-14.7 H INR (BEAKER) (test code = 370) 1.3 <=5.9 RECOMMENDED COUMADIN/WARFARIN INR THERAPY RANGESSTANDARD DOSE: 2.0 - 3.0 Inclu herb: PROPHYLAXIS for venous thrombosis, systemic embolization; TREATMENT for giulia ous thrombosis and/or pulmonary embolus.HIGH RISK: Target INR is 2.5-3.5 for pat ients with mechanical heart valves.POCT-GLUCOSE [id number] 00:32:00* Test Item Value Reference Range Interpretation Comments POC-GLUCOSE METER (BEAKER) (test code = 1538) 106 mg/dL 70-[address] [facility] [address] [facility] [address] RAD, CHEST, 1 VIEW, NON [id number] 18:48:00Reason for exam:->SOBShould this be performed at the bedside?->YesFINAL REPORT Chest dated 07/03/2018 COMPARISON: Same day Clinical Information: SOB Comment: Heart is enlarged. Pulmonary vasculature is indistinct. Interstitial disease is seen bilaterally suggestive of vascular congestion or pulmonary edema. No pleural effusion or pneumothorax is seen. Tracheostomy tube and feeding tube remain in place. Impression: No interval change. Signed: Keith [facility]re[facility] Verified Date/Time: 07/03/2018 18:48:11 Reading Location: [address] Consult Reading Room -GLUCOSE [id number] 17:36:00* Test Item Value Reference Range Interpretation Comments POC-GLUCOSE METER (BEAKER) (test code = 1538) 130 mg/dL 70-[address] [facility] [address] [facility] [address] HEMOGLOBIN AND [id number] 14:44:00* Test Item Value Reference Range Interpretation Comments HEMOGLOBIN (BEAKER) (test code = 410) 8.1 GM/DL 13.7-17.5 L HEMATOCRIT (BEAKER) (test code = 411) 25.8 % 40.1-51.0 L CBC W/PLT COUNT & AUTO [id number] 12:53:00* Test Item Value Reference Range Interpretation [...] MDReport Verified Date/Time: 07/03/2018 07:23:40 Reading Location: [facility] Radiology Reading Room -GLUCOSE [id number] 06:01:00* Test Item Value Reference Range Interpretation Comments POC-GLUCOSE METER (BEAKER) (test code = 1538) 203 mg/dL 70-[address] [facility] [address] [facility] [address] [id number] 05:39:00* Test Item Value Reference Range Interpretation Comments MAGNESIUM (BEAKER) (test code = 627) 1.7 mg/dL 1.6-2.6 BASIC METABOLIC [id number] 05:39:00* Test Item Value Reference Range Interpretation [...] FOR DIALYSIS PATIENTS. Specimen moderately ictericHEPATIC FUNCTION [id number] 05:39:00* Test Item Value Reference Range Interpretation [...] 347) 125 U/L 6-55 H Specimen moderately [id number] 05:10:00* Test Item Value Reference Range Interpretation Comments PARTIAL THROMBOPLASTIN TIME (BEAKER) (test code = 760) 41.9 seconds 22.5-36.0 H PROTHROMBIN TIME/[id number] 05:09:00* Test Item Value Reference Range Interpretation [...] pat ients with mechanical heart valves.HEMOGLOBIN AND [id number] 00:58:00 * Test Item Value Reference Range Interpretation Comments HEMOGLOBIN (BEAKER) (test code = 410) 8.3 GM/DL 13.7-17.5 L HEMATOCRIT (BEAKER) (test code = 411) 26.1 % 40.1-51.0 L POCT-GLUCOSE [id number] 23:25:00* Test Item Value Reference Range Interpretation Comments POC-GLUCOSE METER (BEAKER) (test code = 1538) 179 mg/dL 70-[address] [facility] [address] [facility] [address] POCT-GLUCOSE [id number] 18:01:00* Test Item Value Reference Range Interpretation Comments POC-GLUCOSE METER (BEAKER) (test code = 1538) 175 mg/dL 70-[address] [facility] [address] [facility] [address] HEMOGLOBIN AND [id number] 17:25:00* Test Item Value Reference Range Interpretation Comments HEMOGLOBIN (BEAKER) (test code = 410) 7.9 GM/DL 13.7-17.5 L HEMATOCRIT (BEAKER) (test code = 411) 24.0 % 40.1-51.0 L CBC W/PLT COUNT & AUTO [id number] 13:26:00* Test Item Value Reference Range Interpretation [...] Received comment: User comments: Slide comments: POCT-GLUCOSE [id number] 11:58:00* Test Item Value Reference Range Interpretation Comments POC-GLUCOSE METER (BEAKER) (test code = 1538) 148 mg/dL 70-110 H TESTED AT [address] [address] RAD, CHEST, 1 VIEW, NON [id number] 07:41:00Reason for exam:->Pulmonary edema evaluationShould this be [...] MDReport Verified Date/Time: 07/02/2018 07:41:39 Reading Location: [facility] Radiology Reading Room [id number] 07:01:00* Test Item Value Reference Range Interpretation Comments PARTIAL THROMBOPLASTIN TIME (BEAKER) (test code = 760) 46.2 seconds 22.5-36.0 H PROTHROMBIN TIME/[id number] 06:59:00* Test Item Value Reference Range Interpretation [...] pat ients with mechanical heart valves.HEMOGLOBIN AND [id number] 06:48:00 * Test Item Value Reference Range Interpretation Comments HEMOGLOBIN (BEAKER) (test code = 410) 7.9 GM/DL 13.7-17.5 L HEMATOCRIT (BEAKER) (test code = 411) 25.0 % 40.1-51.0 L POCT-GLUCOSE [id number] 06:17:00* Test Item Value Reference Range Interpretation Comments POC-GLUCOSE METER (BEAKER) (test code = 1538) 170 mg/dL 70-[address] [facility] [address] [place] [address] CREATINE KINASE (CK)2018-07-02 03:50:00* Test Item Value Reference Range Interpretation Comments CREATINE KINASE TOTAL (BEAKER) (test code = 380) 17 U/L 29-20 0 L [id number] 03:44:00* Test Item Value Reference Range Interpretation Comments MAGNESIUM (BEAKER) (test code = 627) 1.9 mg/dL 1.6-2.6 Specimen slightly hemolyzed BASIC METABOLIC [id number] 03:44:00* Test Item Value Reference Range Interpretation [...] FOR DIALYSIS PATIENTS. Specimen moderately ictericHEPATIC FUNCTION [id number] 03:44:00* Test Item Value Reference Range Interpretation [...] Specimen slightly hemolyzed Specimen moderately ictericHEMOGLOBIN AND [id number] 03:08:00* Test Item Value Reference Range Interpretation Comments HEMOGLOBIN (BEAKER) (test code = 410) 7.9 GM/DL 13.7-17.5 L HEMATOCRIT (BEAKER) (test code = 411) 24.8 % 40.1-51.0 L POCT-GLUCOSE [id number] 23:24:00* Test Item Value Reference Range Interpretation Comments POC-GLUCOSE METER (BEAKER) (test code = 1538) 155 mg/dL 70-[address] [facility] [address] [facility] [address] HEMOGLOBIN AND [id number] 18:35:00* Test Item Value Reference Range Interpretation Comments HEMOGLOBIN (BEAKER) (test code = 410) 7.9 GM/DL 13.7-17.5 L HEMATOCRIT (BEAKER) (test code = 411) 24.1 % 40.1-51.0 L POCT-GLUCOSE [id number] 17:49:00* Test Item Value Reference Range Interpretation Comments POC-GLUCOSE METER (BEAKER) (test code = 1538) 148 mg/dL 70-[address] [facility] [address] [facility] [address] POCT-GLUCOSE [id number] 11:44:00* Test Item Value Reference Range Interpretation Comments POC-GLUCOSE METER (BEAKER) (test code = 1538) 151 mg/dL 70-[address] [facility] [address] [facility] [address] HEMOGLOBIN AND [id number] 10:59:00* Test Item Value Reference Range Interpretation Comments HEMOGLOBIN (BEAKER) (test code = 410) 8.0 GM/DL 13.7-17.5 L HEMATOCRIT (BEAKER) (test code = 411) 24.0 % 40.1-51.0 L RAD, CHEST, 1 VIEW, NON [id number] 08:47:00Reason for exam:->Pulmonary edema evaluationShould this be performed at the bedside?->YesFINAL REPORT Chest, one view HISTORY: Pulmonary edema evaluation Comparison: 06/30/2018 Findings: Lungs: Stable bilateral airspace disease. Heart: Mild prominence of the cardiac silhouette, unchanged from prior study. Pleura: No pleural effusion or pneumothorax. Bones: Unremarkable. Lines/tubes: Unchanged in position. IMPRESSION: No significant interval change. Signed: Alonzo Valenzuelaeport Verified Date/Time: 07/01/2018 08:47:41 Reading Location: [facility] Diagnostic Imaging Reading Room - SLSWV F1 1120 -GLUCOSE [id number] 06:47:00 * Test Item Value Reference Range Interpretation Comments POC-GLUCOSE METER (BEAKER) (test code = 1538) 153 mg/dL 70-[address] [facility] [address] [facility] [place] [address] [id number] 04:06:00* Test Item Value Reference Range Interpretation Comments MAGNESIUM (BEAKER) (test code = 627) 1.9 mg/dL 1.6-2.6 BASIC METABOLIC [id number] 04:06:00* Test Item Value Reference Range Interpretation [...] FOR DIALYSIS PATIENTS. Specimen moderately ictericHEPATIC FUNCTION [id number] 04:06:00* Test Item Value Reference Range Interpretation [...] 347) 145 U/L 6-55 H Specimen moderately [id number] 03:50:00* Test Item Value Reference Range Interpretation Comments PARTIAL THROMBOPLASTIN TIME (BEAKER) (test code = 760) 46.8 seconds 22.5-36.0 H PROTHROMBIN TIME/[id number] 03:49:00* Test Item Value Reference Range Interpretation [...] mechanical heart valves.CBC W/PLT COUNT & AUTO [id number] 03:32:00* Test Item Value Reference Range Interpretation [...] 2801) 2 % 0-1 H HEMOGLOBIN AND [id number] 03:20:00* Test Item Value Reference Range Interpretation Comments HEMOGLOBIN (BEAKER) (test code = 410) 7.7 GM/DL 13.7-17.5 L HEMATOCRIT (BEAKER) (test code = 411) 24.3 % 40.1-51.0 L POCT-GLUCOSE [id number] 23:51:00* Test Item Value Reference Range Interpretation Comments POC-GLUCOSE METER (BEAKER) (test code = 1538) 146 mg/dL 70-110 H TESTED AT [place] [id number] [facility] [address] POCT-GLUCOSE [id number] 17:40:00* Test Item Value Reference Range Interpretation Comments POC-GLUCOSE METER (BEAKER) (test code = 1538) 194 mg/dL 70-110 H TESTED AT [address] [address] HEMOGLOBIN AND [id number] 17:33:00* Test Item Value Reference Range Interpretation Comments HEMOGLOBIN (BEAKER) (test code = 410) 7.9 GM/DL 13.7-17.5 L HEMATOCRIT (BEAKER) (test code = 411) 24.6 % 40.1-51.0 L CBC W/PLT COUNT & AUTO [id number] 15:29:00* Test Item Value Reference Range Interpretation [...] Received comment: User comments: Slide comments: POCT-GLUCOSE [id number] 11:51:00* Test Item Value Reference Range Interpretation Comments POC-GLUCOSE METER (BEAKER) (test code = 1538) 191 mg/dL 70-[address] [facility] [address] [facility] [address] HEMOGLOBIN AND [id number] 09:19:00* Test Item Value Reference Range Interpretation Comments HEMOGLOBIN (BEAKER) (test code = 410) 7.8 GM/DL 13.7-17.5 L HEMATOCRIT (BEAKER) (test code = 411) 24.1 % 40.1-51.0 L RAD, CHEST, 1 VIEW, NON [id number] 08:34:00Reason for exam:->Pulmonary edema evaluationShould this be [...] MDReport Verified Date/Time: 06/30/2018 08:34:20 Reading Location: [address] Consult Reading Room ESIUM 2018-06-30 07:03:00* Test Item Value Reference Range Interpretation Comments MAGNESIUM (BEAKER) (test code = 627) 2.1 mg/dL 1.6-2.6 BASIC METABOLIC [id number] 07:03:00* Test Item Value Reference Range Interpretation [...] FOR DIALYSIS PATIENTS. Specimen moderately ictericHEPATIC FUNCTION [id number] 07:03:00* Test Item Value Reference Range Interpretation [...] 162 U/L 6-55 H Specimen moderately ictericPOCT-GLUCOSE [id number] 06:08:00* Test Item Value Reference Range Interpretation Comments POC-GLUCOSE METER (BEAKER) (test code = 1538) 127 mg/dL 70-[address] [facility] [address] [place] [address] [id number] 06:06:00* Test Item Value Reference Range Interpretation Comments PARTIAL THROMBOPLASTIN TIME (BEAKER) (test code = 760) 27.4 seconds 22.5-36.0 PROTHROMBIN TIME/[id number] 06:05:00* Test Item Value Reference Range Interpretation [...] pat ients with mechanical heart valves.HEMOGLOBIN AND [id number] 00:04:00 * Test Item Value Reference Range Interpretation Comments HEMOGLOBIN (BEAKER) (test code = 410) 8.3 GM/DL 13.7-17.5 L HEMATOCRIT (BEAKER) (test code = 411) 25.4 % 40.1-51.0 L POCT-GLUCOSE [id number] 00:02:00* Test Item Value Reference Range Interpretation Comments POC-GLUCOSE METER (BEAKER) (test code = 1538) 140 mg/dL 70-[address] [facility] [address] [facility] [address] POCT-GLUCOSE [id number] 17:41:00* Test Item Value Reference Range Interpretation Comments POC-GLUCOSE METER (BEAKER) (test code = 1538) 155 mg/dL 70-[address] [facility] [address] [facility] [address] HEMOGLOBIN AND [id number] 16:00:00* Test Item Value Reference Range Interpretation Comments HEMOGLOBIN (BEAKER) (test code = 410) 8.2 GM/DL 13.7-17.5 L HEMATOCRIT (BEAKER) (test code = 411) 25.5 % 40.1-51.0 L BLOOD GAS, [id number] 15:50:00* Test Item Value Reference Range Interpretation [...] 30.0 % RAD, CHEST, 1 VIEW, NON [id number] 14:58:00Reason for exam:->Pulmonary edema evaluationShould this be performed at the bedside?->YesFINAL REPORT AP chest HISTORY: Pulmonary edema. COMPARISON: 06/28/2018. IMPRESSION: Tracheostomy tube and feeding tube present. Hypoinflation. Mild interstitial edema, increased from previous. No effusion or pneumothorax. Signed: Eric Andrade MDReport Verified Date/Time: 06/29/2018 14:58:10 Reading Location: [address] Transitional Reading Room W/PLT COUNT & [...] Received comment: User comments: Slide comments: POCT-GLUCOSE [id number] 12:20:00* Test Item Value Reference Range Interpretation Comments POC-GLUCOSE METER (BEAKER) (test code = 1538) 154 mg/dL 70-110 H TESTED AT [address] [address] [id number] 06:44:00* Test Item Value Reference Range Interpretation Comments PARTIAL THROMBOPLASTIN TIME (BEAKER) (test code = 760) 40.7 seconds 22.5-36.0 H PROTHROMBIN TIME/[id number] 06:43:00* Test Item Value Reference Range Interpretation Comments PROTIME (BEAKER) (test code = 759) 16.8 seconds 11.7-14.7 H INR (BEAKER) (test code = 370) 1.4 <=5.9 RECOMMENDED COUMADIN/WARFARIN INR THERAPY RANGESSTANDARD DOSE: 2.0 - 3.0 Inclu herb: PROPHYLAXIS for venous thrombosis, systemic embolization; TREATMENT for giulia ous thrombosis and/or pulmonary embolus.HIGH RISK: Target INR is 2.5-3.5 for pat ients with mechanical heart valves.POCT-GLUCOSE [id number] 06:07:00* Test Item Value Reference Range Interpretation Comments POC-GLUCOSE METER (BEAKER) (test code = 1538) 177 mg/dL 70-[address] [facility] [address] [facility] [address] [id number] 04:04:00* Test Item Value Reference Range Interpretation Comments MAGNESIUM (BEAKER) (test code = 627) 2.0 mg/dL 1.6-2.6 Specimen slightly hemolyzed BASIC METABOLIC [id number] 04:04:00* Test Item Value Reference Range Interpretation [...] FOR DIALYSIS PATIENTS. Specimen markedly ictericHEPATIC FUNCTION [id number] 04:04:00* Test Item Value Reference Range Interpretation [...] Specimen slightly hemolyzed Specimen markedly ictericHEMOGLOBIN AND [id number] 01:37:00* Test Item Value Reference Range Interpretation Comments HEMOGLOBIN (BEAKER) (test code = 410) 7.7 GM/DL 13.7-17.5 L HEMATOCRIT (BEAKER) (test code = 411) 23.9 % 40.1-51.0 L POCT-GLUCOSE [id number] 00:12:00* Test Item Value Reference Range Interpretation Comments POC-GLUCOSE METER (BEAKER) (test code = 1538) 158 mg/dL 70-110 H TESTED AT [address] [address] SODIUM, RANDOM [id number] 20:36:00* Test Item Value Reference Range Interpretation Comments SODIUM URINE (BEAKER) (test code = 243) < meq/L Reference Range: No NormalsPOCT-GLUCOSE [id number] 20:24:00* Test Item Value Reference Range Interpretation Comments POC-GLUCOSE METER (BEAKER) (test code = 1538) 169 mg/dL 70-110 H TESTED AT [address] [address] HEMOGLOBIN AND [id number] 20:24:00* Test Item Value Reference Range Interpretation Comments HEMOGLOBIN (BEAKER) (test code = 410) 6.9 GM/DL 13.7-17.5 L HEMATOCRIT (BEAKER) (test code = 411) 21.1 % 40.1-51.0 L HEMOGLOBIN AND [id number] 18:35:00* Test Item Value Reference Range Interpretation Comments HEMOGLOBIN (BEAKER) (test code = 410) 6.7 GM/DL 13.7-17.5 L HEMATOCRIT (BEAKER) (test code = 411) 20.7 % 40.1-51.0 L YARI ANTIGEN WITH REFLEX TO [id number] 18:29:00* Test Item Value Reference Range Interpretation Comments YARI ANTIGEN (BEAKER) (test code = 1782) Positive YARI ANTIGEN [id number] 18:29:00* Test Item Value Reference Range Interpretation Comments YARI ANTIGEN TITER (BEAKER) (test code = 737) :2 POCT-GLUCOSE [id number] 17:43:00* Test Item Value Reference Range Interpretation Comments POC-GLUCOSE METER (BEAKER) (test code = 1538) 108 mg/dL 70-[address] [facility] [address] [facility] [address] POCT-GLUCOSE [id number] 12:27:00* Test Item Value Reference Range Interpretation Comments POC-GLUCOSE METER (BEAKER) (test code = 1538) 152 mg/dL 70-110 H TESTED AT [place] [id number] [facility] [address] CBC W/PLT COUNT & AUTO [id number] 12:16:00* Test Item Value Reference Range Interpretation [...] 40.1-51.0 L RAD, CHEST, 1 VIEW, NON [id number] 09:28:00Reason for exam:->Pulmonary edema evaluationShould this be [...] MDReport Verified Date/Time: 06/28/2018 09:28:59 Reading Location: [facility] Radiology Reading Room - GLUCOSE [id number] 06:13:00* Test Item Value Reference Range Interpretation Comments POC-GLUCOSE METER (BEAKER) (test code = 1538) 123 mg/dL 70-[address] [facility] [address] [facility] [address] BASIC METABOLIC [id number] 05:57:00* Test Item Value Reference Range Interpretation [...] NOT APPLICABLE FOR DIALYSIS PATIENTS. Specimen markedly [id number] 05:56:00* Test Item Value Reference Range Interpretation Comments MAGNESIUM (BEAKER) (test code = 627) 2.3 mg/dL 1.6-2.6 HEPATIC FUNCTION [id number] 05:56:00* Test Item Value Reference Range Interpretation [...] 347) 180 U/L 6-55 H Specimen markedly [id number] 05:43:00* Test Item Value Reference Range Interpretation Comments PARTIAL THROMBOPLASTIN TIME (BEAKER) (test code = 760) 45.3 seconds 22.5-36.0 H PROTHROMBIN [id number] 05:42:00* Test Item Value Reference Range Interpretation Comments PROTIME (BEAKER) (test code = 759) 17.5 seconds 11.7-14.7 H INR (BEAKER) (test code = 370) 1.5 <=5.9 RECOMMENDED COUMADIN/WARFARIN INR THERAPY RANGESSTANDARD DOSE: 2.0 - 3.0 Inclu herb: PROPHYLAXIS for venous thrombosis, systemic embolization; TREATMENT for giulia ous thrombosis and/or pulmonary embolus.HIGH RISK: Target INR is 2.5-3.5 for pat ients with mechanical heart valves.POCT-GLUCOSE [id number] 00:23:00* Test Item Value Reference Range Interpretation Comments POC-GLUCOSE METER (BEAKER) (test code = 1538) 183 mg/dL 70-[address] [facility] [address] [facility] [address] HEMOGLOBIN AND [id number] 20:24:00* Test Item Value Reference Range Interpretation Comments HEMOGLOBIN (BEAKER) (test code = 410) 7.4 GM/DL 13.7-17.5 L HEMATOCRIT (BEAKER) (test code = 411) 22.3 % 40.1-51.0 L POCT-GLUCOSE [id number] 18:08:00* Test Item Value Reference Range Interpretation Comments POC-GLUCOSE METER ([facility]) (test code = 1538) 171 mg/dL 70-[address] 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 Samm Arenas, [facility] Hematopathology, who concurs with the diagnosis. [id number] Cecal ulcer biops yThe specimen is received in a formalin-filled container and labeled with the p atient's information and labeled "cecal ulcer biopsy" and consists of a 0.2 cm f ragment of guaajrdo tissue, submitted entirely A1. CG/pl Performed.The following carlos tional immunohistochemical stains, were evaluated on the biopsy with appropriate controls:CD3, CD5, CD10, CD20, BCL-2, BCL-6, CyclinD1, Ki-67, [place], Lambda, PA X-5.CD3, CD5 and BCL-2 have similar patterns and highlight T lymphocytes. CD20 a nd PAX-5 highlights increased large, atypical appearing B cells. [place] and [place]ana da demonstrate polytypic plasma cells. [...] sting was performed at [facility], Pathology Laboratory wh ere it was developed [...] and its performance c haracteristics determined by [facility], Pathology Laboratory. It has not been cleared [...] to perform high complexity clinic al laboratory testing.[facility], Department of Pathology, [address] [place] [address], [facility], [address] [place] [address], [facility], [facility], [address] [facility], [place] [address], b-TYPE NATRIURETIC FACTOR (BNP) 2018-06-27 13:44:00* Test Item Value Reference Range Interpretation Comments B-TYPE NATRIURETIC PEPTIDE (BEAKER) (test code = 700) 179 pg/mL 0-100 H HEMOGLOBIN AND [id number] 13:18:00* Test Item Value Reference Range Interpretation Comments HEMOGLOBIN (BEAKER) (test code = 410) 7.9 GM/DL 13.7-17.5 L HEMATOCRIT (BEAKER) (test code = 411) 23.6 % 40.1-51.0 L CBC W/PLT COUNT & AUTO [id number] 13:10:00* Test Item Value Reference Range Interpretation [...] MDReport Verified Date/Time: 06/27/2018 12:39:10 Reading Location: [facility] Radiology Reading Room -GLUCOSE [id number] 11:38:00 * Test Item Value Reference Range Interpretation Comments POC-GLUCOSE METER (BEAKER) (test code = 1538) 181 mg/dL 70-110 H TESTED AT [place] [id number] [facility] [address] HEMOGLOBIN AND [id number] 09:34:00* Test Item Value Reference Range Interpretation Comments HEMOGLOBIN (BEAKER) (test code = 410) 8.1 GM/DL 13.7-17.5 L HEMATOCRIT (BEAKER) (test code = 411) 24.9 % 40.1-51.0 L POCT-GLUCOSE [id number] 06:28:00* Test Item Value Reference Range Interpretation Comments POC-GLUCOSE METER (BEAKER) (test code = 1538) 161 mg/dL 70-110 H TESTED AT [place] [address] [facility] [address] BASIC METABOLIC [id number] 06:04:00* Test Item Value Reference Range Interpretation [...] NOT APPLICABLE FOR DIALYSIS PATIENTS. Specimen markedly [id number] 06:00:00* Test Item Value Reference Range Interpretation Comments MAGNESIUM (BEAKER) (test code = 627) 1.9 mg/dL 1.6-2.6 HEPATIC FUNCTION [id number] 06:00:00* Test Item Value Reference Range Interpretation [...] 347) 170 U/L 6-55 H Specimen markedly [id number] 05:56:00* Test Item Value Reference Range Interpretation Comments PARTIAL THROMBOPLASTIN TIME (BEAKER) (test code = 760) 41.4 seconds 22.5-36.0 H PROTHROMBIN TIME/[id number] 05:55:00* Test Item Value Reference Range Interpretation [...] pat ients with mechanical heart valves.HEMOGLOBIN AND [id number] 05:33:00 * Test Item Value Reference Range Interpretation Comments HEMOGLOBIN (BEAKER) (test code = 410) 7.5 GM/DL 13.7-17.5 L HEMATOCRIT (BEAKER) (test code = 411) 23.3 % 40.1-51.0 L POCT-GLUCOSE [id number] 00:28:00* Test Item Value Reference Range Interpretation Comments POC-GLUCOSE METER (BEAKER) (test code = 1538) 153 mg/dL 70-110 H TESTED AT [address] [address] HEMOGLOBIN AND [id number] 00:15:00* Test Item Value Reference Range Interpretation Comments HEMOGLOBIN (BEAKER) (test code = 410) 6.8 GM/DL 13.7-17.5 L HEMATOCRIT (BEAKER) (test code = 411) 20.6 % 40.1-51.0 L HEMOGLOBIN AND [id number] 20:31:00* Test Item Value Reference Range Interpretation Comments HEMOGLOBIN (BEAKER) (test code = 410) 7.4 GM/DL 13.7-17.5 L HEMATOCRIT (BEAKER) (test code = 411) 22.5 % 40.1-51.0 L HEMOGLOBIN AND [id number] 18:54:00* Test Item Value Reference Range Interpretation Comments HEMOGLOBIN (BEAKER) (test code = 410) 7.4 GM/DL 13.7-17.5 L HEMATOCRIT (BEAKER) (test code = 411) 22.7 % 40.1-51.0 L POCT-GLUCOSE [id number] 18:17:00* Test Item Value Reference Range Interpretation Comments POC-GLUCOSE METER (BEAKER) (test code = 1538) 133 mg/dL 70-[address] [facility] [address] [facility] [address] [id number] 16:32:00* Test Item Value Reference Range Interpretation Comments FIBRINOGEN LEVEL (BEAKER) (test code = 658) 331 mg/dl 225-434 PT/[id number] 15:10:00* Test Item Value Reference Range Interpretation [...] pat ients with mechanical heart valves.HEMOGLOBIN AND [id number] 14:55:00 * Test Item Value Reference Range Interpretation Comments HEMOGLOBIN (BEAKER) (test code = 410) 7.7 GM/DL 13.7-17.5 L HEMATOCRIT (BEAKER) (test code = 411) 24.0 % 40.1-51.0 L CBC W/PLT COUNT & AUTO [id number] 14:09:00* Test Item Value Reference Range Interpretation [...] Received comment: User comments: Slide comments: BLOOD [id number] 14:03:00* Test Item Value Reference Range Interpretation Comments CULTURE (BEAKER) (test code = 1095) No growth in 5 days BLOOD [id number] 14:03:00* Test Item Value Reference Range Interpretation Comments CULTURE (BEAKER) (test code = 1095) No growth in 5 days POCT-GLUCOSE [id number] 11:51:00* Test Item Value Reference Range Interpretation Comments POC-GLUCOSE METER (BEAKER) (test code = 1538) 176 mg/dL 70-[address] [facility] [address] [facility] [address] HEMOGLOBIN AND [id number] 08:23:00* Test Item Value Reference Range Interpretation Comments HEMOGLOBIN (BEAKER) (test code = 410) 6.2 GM/DL 13.7-17.5 L HEMATOCRIT (BEAKER) (test code = 411) 18.9 % 40.1-51.0 L POCT-GLUCOSE [id number] 07:35:00* Test Item Value Reference Range Interpretation Comments POC-GLUCOSE METER (BEAKER) (test code = 1538) 172 mg/dL 70-[address] [facility] [address] [facility] [address] RAD, CHEST, 1 VIEW, NON [id number] 07:26:00Reason for exam:->Pulmonary edema evaluationShould this be [...] MDReport Verified Date/Time: 06/26/2018 07:26:15 Reading Location: [facility] Radiology Reading Room [id number] 05:04:00* Test Item Value Reference Range Interpretation Comments MAGNESIUM (BEAKER) (test code = 627) 1.9 mg/dL 1.6-2.6 BASIC METABOLIC [id number] 05:04:00* Test Item Value Reference Range Interpretation [...] FOR DIALYSIS PATIENTS. Specimen markedly ictericHEPATIC FUNCTION [id number] 05:04:00* Test Item Value Reference Range Interpretation [...] 347) 202 U/L 6-55 H Specimen markedly [id number] 04:54:00* Test Item Value Reference Range Interpretation Comments PARTIAL THROMBOPLASTIN TIME (BEAKER) (test code = 760) 39.3 seconds 22.5-36.0 H PROTHROMBIN TIME/[id number] 04:53:00* Test Item Value Reference Range Interpretation [...] pat ients with mechanical heart valves.HEMOGLOBIN AND [id number] 04:48:00 * Test Item Value Reference Range Interpretation Comments HEMOGLOBIN (BEAKER) (test code = 410) 7.2 GM/DL 13.7-17.5 L HEMATOCRIT (BEAKER) (test code = 411) 22.4 % 40.1-51.0 L HEMOGLOBIN AND [id number] 00:55:00* Test Item Value Reference Range Interpretation Comments HEMOGLOBIN (BEAKER) (test code = 410) 7.9 GM/DL 13.7-17.5 L HEMATOCRIT (BEAKER) (test code = 411) 24.4 % 40.1-51.0 L POCT-GLUCOSE [id number] 00:11:00* Test Item Value Reference Range Interpretation Comments POC-GLUCOSE METER (BEAKER) (test code = 1538) 130 mg/dL 70-[address] [facility] [address] [facility] [address] HEMOGLOBIN AND [id number] 21:55:00* Test Item Value Reference Range Interpretation Comments HEMOGLOBIN (BEAKER) (test code = 410) 7.8 GM/DL 13.7-17.5 L HEMATOCRIT (BEAKER) (test code = 411) 24.7 % 40.1-51.0 L HEMOGLOBIN AND [id number] 19:15:00* Test Item Value Reference Range Interpretation Comments HEMOGLOBIN (BEAKER) (test code = 410) 8.2 GM/DL 13.7-17.5 L HEMATOCRIT (BEAKER) (test code = 411) 25.5 % 40.1-51.0 L POCT-GLUCOSE [id number] 18:49:00* Test Item Value Reference Range Interpretation Comments POC-GLUCOSE METER (BEAKER) (test code = 1538) 159 mg/dL 70-[address] [facility] [address] [facility] [address] POCT-GLUCOSE [id number] 17:29:00* Test Item Value Reference Range Interpretation Comments POC-GLUCOSE METER (BEAKER) (test code = 1538) 104 mg/dL 70-[address] [facility] [address] [facility] [address] CT, CTA [id number] 14:14:00FINAL REPORT TECHNIQUE: CTA of the abdomen [...] Verified Date/Time: 06/25/2018 14:14:40 Jovani manjarrez Location: [address] Body Reading Room GLOBIN AND [id number] 12:47:00* Test Item Value Reference Range Interpretation Comments HEMOGLOBIN (BEAKER) (test code = 410) 7.9 GM/DL 13.7-17.5 L HEMATOCRIT (BEAKER) (test code = 411) 24.6 % 40.1-51.0 L POCT-GLUCOSE [id number] 12:19:00* Test Item Value Reference Range Interpretation Comments POC-GLUCOSE METER (BEAKER) (test code = 1538) 161 mg/dL 70-[address] [facility] [address] [place] [address] CBC W/PLT COUNT & AUTO [id number] 10:47:00* Test Item Value Reference Range Interpretation [...] 40.1-51.0 L RAD, CHEST, 1 VIEW, NON [id number] 07:29:00Reason for exam:->Pulmonary edema evaluationShould this be [...] MDReport Verified Date/Time: 06/25/2018 07:29:59 Reading Location: [facility] Radiology Reading Room [facility] signed by: ANDREW SLOAN M.D. on 06/25/2018 07:29 AM POCT-GLUCOSE METER 2018-06-25 06:28:00* Test Item Value Reference Range Interpretation Comments POC-GLUCOSE METER (BEAKER) (test code = 1538) 174 mg/dL 70-110 H TESTED AT [address] [address] [id number] 05:46:00* Test Item Value Reference Range Interpretation Comments PARTIAL THROMBOPLASTIN TIME (BEAKER) (test code = 760) 52.2 seconds 22.5-36.0 H PROTHROMBIN TIME/[id number] 05:44:00* Test Item Value Reference Range Interpretation Comments PROTIME (BEAKER) (test code = 759) 18.3 seconds 11.7-14.7 H INR (BEAKER) (test code = 370) 1.6 <=5.9 RECOMMENDED COUMADIN/WARFARIN INR THERAPY RANGESSTANDARD DOSE: 2.0 - 3.0 Inclu herb: PROPHYLAXIS for venous thrombosis, systemic embolization; TREATMENT for giulia ous thrombosis and/or pulmonary embolus.HIGH RISK: Target INR is 2.5-3.5 for pat ients with mechanical heart valves.[id number] 05:41:00* Test Item Value Reference Range Interpretation Comments MAGNESIUM (BEAKER) (test code = 627) 2.2 mg/dL 1.6-2.6 BASIC METABOLIC [id number] 05:41:00* Test Item Value Reference Range Interpretation [...] FOR DIALYSIS PATIENTS. Specimen markedly ictericHEPATIC FUNCTION [id number] 05:41:00* Test Item Value Reference Range Interpretation [...] 24 U/L 29-20 0 L BLOOD GAS, [id number] 05:35:00* Test Item Value Reference Range Interpretation [...] code = 1819) 40.0 % LACTIC ACID, [id number] 05:32:00* Test Item Value Reference Range Interpretation Comments LACTATE BLOOD ARTERIAL (2) (BEAKER) (test code = 2874) 0.5 mmol/L 0.5-2.2 Specimen markedly ictericPOCT-GLUCOSE [id number] 00:35:00* Test Item Value Reference Range Interpretation Comments POC-GLUCOSE METER (BEAKER) (test code = 1538) 140 mg/dL 70-110 H TESTED AT [address] [address] HEMOGLOBIN AND [id number] 00:32:00* Test Item Value Reference Range Interpretation Comments HEMOGLOBIN (BEAKER) (test code = 410) 8.3 GM/DL 13.7-17.5 L HEMATOCRIT (BEAKER) (test code = 411) 25.6 % 40.1-51.0 L POCT-GLUCOSE [id number] 18:59:00* Test Item Value Reference Range Interpretation Comments POC-GLUCOSE METER (BEAKER) (test code = 1538) 124 mg/dL 70-110 H TESTED AT [address] [address] HEMOGLOBIN AND [id number] 18:36:00* Test Item Value Reference Range Interpretation Comments HEMOGLOBIN (BEAKER) (test code = 410) 8.1 GM/DL 13.7-17.5 L HEMATOCRIT (BEAKER) (test code = 411) 25.1 % 40.1-51.0 L POCT-GLUCOSE [id number] 12:21:00* Test Item Value Reference Range Interpretation Comments POC-GLUCOSE METER (BEAKER) (test code = 1538) 133 mg/dL 70-[address] [facility] [address] [facility] [address] RAD, CHEST, 1 VIEW, NON [id number] 09:38:00Reason for exam:->Pulmonary edema evaluationShould this be performed at the bedside?->YesFINAL REPORT Comparison: 06/23/2018 TECHNIQUE: Single view of the chest FINDINGS: Lung volumes are low. There is mild vascular congestion. No gross new lung parenchymal changes. Support lines and tubes are stable. Signed: Roberth Camp MDReport Verified Date/Time: 06/24/2018 09:38:51 Reading Location: [facility] Radiology Reading Room W/PLT COUNT & AUTO [id number] 09:00:00* Test Item Value Reference Range Interpretation [...] Received comment: User comments: Slide comments: POCT-GLUCOSE [id number] 06:48:00* Test Item Value Reference Range Interpretation Comments POC-GLUCOSE METER (BEAKER) (test code = 1538) 122 mg/dL 70-[address] [facility] [address] [facility] [address] POCT-GLUCOSE [id number] 05:09:00* Test Item Value Reference Range Interpretation Comments POC-GLUCOSE METER (BEAKER) (test code = 1538) 138 mg/dL 70-[address] [facility] [address] [facility] [address] BLOOD GAS, [id number] 04:42:00* Test Item Value Reference Range Interpretation [...] (BEAKER) (test code = 1819) 40.0 % [id number] 04:32:00* Test Item Value Reference Range Interpretation Comments MAGNESIUM (BEAKER) (test code = 627) 2.0 mg/dL 1.6-2.6 BASIC METABOLIC [id number] 04:32:00* Test Item Value Reference Range Interpretation [...] FOR DIALYSIS PATIENTS. Specimen markedly ictericHEPATIC FUNCTION [id number] 04:32:00* Test Item Value Reference Range Interpretation [...] U/L 6-55 H Specimen markedly ictericLACTIC ACID, [id number] 04:22:00* Test Item Value Reference Range Interpretation Comments LACTATE BLOOD ARTERIAL (2) (BEAKER) (test code = 2874) 0.6 mmol/L 0.5-2.2 Specimen moderately [id number] 04:17:00* Test Item Value Reference Range Interpretation Comments PARTIAL THROMBOPLASTIN TIME (BEAKER) (test code = 760) 50.9 seconds 22.5-36.0 H PROTHROMBIN TIME/[id number] 04:16:00* Test Item Value Reference Range Interpretation Comments PROTIME (BEAKER) (test code = 759) 18.0 seconds 11.7-14.7 H INR (BEAKER) (test code = 370) 1.6 <=5.9 RECOMMENDED COUMADIN/WARFARIN INR THERAPY RANGESSTANDARD DOSE: 2.0 - 3.0 Inclu herb: PROPHYLAXIS for venous thrombosis, systemic embolization; TREATMENT for giulia ous thrombosis and/or pulmonary embolus.HIGH RISK: Target INR is 2.5-3.5 for pat ients with mechanical heart valves.POCT-GLUCOSE [id number] 00:29:00* Test Item Value Reference Range Interpretation Comments POC-GLUCOSE METER (BEAKER) (test code = 1538) 113 mg/dL 70-[address] [facility] [address] [facility] [address] POCT-GLUCOSE [id number] 18:51:00* Test Item Value Reference Range Interpretation Comments POC-GLUCOSE METER (BEAKER) (test code = 1538) 108 mg/dL 70-110 TESTED AT [place] [id number] [facility] [address] (CELLAVISION MANUAL DIFF)2018-06-23 16:53:00* Test Item Value [...] Slide comments: CBC W/PLT COUNT & AUTO [id number] 16:33:00* Test Item Value Reference Range Interpretation [...] 0-1 H CBC W/PLT COUNT & AUTO [id number] 13:52:00* Test Item Value Reference Range Interpretation [...] Received comment: User comments: Slide comments: POCT-GLUCOSE [id number] 11:56:00* Test Item Value Reference Range Interpretation Comments POC-GLUCOSE METER (BEAKER) (test code = 1538) 115 mg/dL 70-[address] [facility] [address] [facility] [address] [id number] 07:07:00* Test Item Value Reference Range Interpretation Comments MAGNESIUM (BEAKER) (test code = 627) 1.9 mg/dL 1.6-2.6 BASIC METABOLIC [id number] 07:07:00* Test Item Value Reference Range Interpretation [...] FOR DIALYSIS PATIENTS. Specimen markedly ictericHEPATIC FUNCTION [id number] 07:07:00* Test Item Value Reference Range Interpretation [...] U/L 6-55 H Specimen markedly ictericHEMOGLOBIN AND [id number] 06:51:00* Test Item Value Reference Range Interpretation Comments HEMOGLOBIN (BEAKER) (test code = 410) 8.2 GM/DL 13.7-17.5 L HEMATOCRIT (BEAKER) (test code = 411) 25.0 % 40.1-51.0 L POCT-GLUCOSE [id number] 06:44:00* Test Item Value Reference Range Interpretation Comments POC-GLUCOSE METER (BEAKER) (test code = 1538) 121 mg/dL 70-[address] [facility] [address] [facility] [address] LACTIC ACID, [id number] 06:44:00* Test Item Value Reference Range Interpretation Comments LACTATE BLOOD ARTERIAL (2) (BEAKER) (test code = 2874) 0.7 mmol/L 0.5-2.2 Specimen markedly [id number] 06:40:00* Test Item Value Reference Range Interpretation Comments PARTIAL THROMBOPLASTIN TIME (BEAKER) (test code = 760) 44.7 seconds 22.5-36.0 H PROTHROMBIN TIME/[id number] 06:39:00* Test Item Value Reference Range Interpretation [...] pat ients with mechanical heart valves.BLOOD GAS, [id number] 06:36:00* Test Item Value Reference Range Interpretation [...] 40.0 % RAD, CHEST, 1 VIEW, NON [id number] 04:52:00Reason for exam:->Pulmonary edema evaluationShould this be [...] surgical changes.Additional findings: None. Signed: Adri Avendaño Verified Date/Time: 06/23/2018 04:52:15 Reading Location: [address] Neuro Reading Room U/S, ABDOMINAL, [id number] 03:15:00Abdomen limited area? Add comment if clarification [...] MDReport Verified Date/Time: 06/23/2018 03:15:49 Reading Location: [address] Neuro Reading Room GLOBIN AND [id number] 01:05:00* Test Item Value Reference Range Interpretation Comments HEMOGLOBIN (BEAKER) (test code = 410) 8.4 GM/DL 13.7-17.5 L HEMATOCRIT (BEAKER) (test code = 411) 25.9 % 40.1-51.0 L POCT-GLUCOSE [id number] 00:43:00* Test Item Value Reference Range Interpretation Comments POC-GLUCOSE METER (BEAKER) (test code = 1538) 180 mg/dL 70-[address] [facility] [address] [facility] [address] HEMOGLOBIN AND [id number] 21:03:00* Test Item Value Reference Range Interpretation Comments HEMOGLOBIN (BEAKER) (test code = 410) 8.6 GM/DL 13.7-17.5 L HEMATOCRIT (BEAKER) (test code = 411) 25.8 % 40.1-51.0 L POCT-GLUCOSE [id number] 18:20:00* Test Item Value Reference Range Interpretation Comments POC-GLUCOSE METER (BEAKER) (test code = 1538) 265 mg/dL 70-[address] [facility] [address] [facility] [address] HEMOGLOBIN AND [id number] 12:41:00* Test Item Value Reference Range Interpretation Comments HEMOGLOBIN (BEAKER) (test code = 410) 7.6 GM/DL 13.7-17.5 L HEMATOCRIT (BEAKER) (test code = 411) 23.4 % 40.1-51.0 L POCT-GLUCOSE [id number] 12:29:00* Test Item Value Reference Range Interpretation Comments POC-GLUCOSE METER (BEAKER) (test code = 1538) 150 mg/dL 70-110 H TESTED AT [place] [id number] [facility] [address] RAD, CHEST, 1 VIEW, NON [id number] 08:40:00Reason for exam:->Pulmonary edema evaluationShould this be [...] [place] Verified Date/Time: 06/22/2018 08:40:31 Reading Location: [facility] C0[facility] Transitional Reading Room - GLUCOSE [id number] 06:33:00* Test Item Value Reference Range Interpretation Comments POC-GLUCOSE METER (BEAKER) (test code = 1538) 159 mg/dL 70-[address] [facility] [address] [facility] [address] LACTIC ACID, [id number] 04:16:00* Test Item Value Reference Range Interpretation Comments LACTATE BLOOD ARTERIAL (2) (BEAKER) (test code = 2874) 0.5 mmol/L 0.5-2.2 Specimen markedly ictericBASIC METABOLIC [id number] 04:12:00* Test Item Value Reference Range Interpretation [...] APPLICABLE FOR DIALYSIS PATIENTS. Specimen markedly ictericCALCIUM, [id number] 04:10:00* Test Item Value Reference Range Interpretation Comments CALCIUM IONIZED (BEAKER) (test code = 698) 1.28 mmol/L 1.12-1.27 H PH, BLOOD (BEAKER) (test code = 1810) 7.41 Check serum Ionized Calcium level after 4 hours after IV Calcium replacement. BLOOD GAS, [id number] 04:05:00* Test Item Value Reference Range Interpretation [...] 40.0 % CBC W/PLT COUNT & AUTO [id number] 04:02:00* Test Item Value Reference Range Interpretation [...] code = 2801) 4 % 0-1 H [id number] 03:56:00* Test Item Value Reference Range Interpretation Comments MAGNESIUM (BEAKER) (test code = 627) 2.0 mg/dL 1.6-2.6 HEPATIC FUNCTION [id number] 03:56:00* Test Item Value Reference Range Interpretation [...] 347) 136 U/L 6-55 H Specimen markedly [id number] 03:53:00* Test Item Value Reference Range Interpretation Comments PARTIAL THROMBOPLASTIN TIME (BEAKER) (test code = 760) 40.4 seconds 22.5-36.0 H PROTHROMBIN TIME/[id number] 03:52:00* Test Item Value Reference Range Interpretation [...] pat ients with mechanical heart valves.HEMOGLOBIN AND [id number] 03:41:00 * Test Item Value Reference Range Interpretation Comments HEMOGLOBIN (BEAKER) (test code = 410) 8.1 GM/DL 13.7-17.5 L HEMATOCRIT (BEAKER) (test code = 411) 24.4 % 40.1-51.0 L BLOOD [id number] 01:25:00* Test Item Value Reference Range Interpretation Comments CULTURE (BEAKER) (test code = 1095) No growth in 5 days BLOOD [id number] 01:25:00* Test Item Value Reference Range Interpretation Comments CULTURE (BEAKER) (test code = 1095) No growth in 5 days HEMOGLOBIN AND [id number] 00:32:00* Test Item Value Reference Range Interpretation Comments HEMOGLOBIN (BEAKER) (test code = 410) 9.1 GM/DL 13.7-17.5 L HEMATOCRIT (BEAKER) (test code = 411) 27.2 % 40.1-51.0 L POCT-GLUCOSE [id number] 00:18:00* Test Item Value Reference Range Interpretation Comments POC-GLUCOSE METER (BEAKER) (test code = 1538) 189 mg/dL 70-[address] [facility] [address] [facility] [address] ANG, VISCERAL [id number] 22:13:00FINAL REPORT Mesenteric Arteriography Clinical History:GI bleed [...] inch guide wire was advanced. A 5 Luxembourger sheath was util ized. A 5 djiboutian Baker catheter was placed selectively into the [...] Rogel Verified Date/Time: 06/21/2018 22:13:37 Reading Location: [facility] [address] [facility] Body Reading Room Electronically signed by: KAI ROGEL M.D. on 05/28 10:13 PM RAD, ABDOMEN/KUB, 1 VIEW [id number] 20:57:00Reason for exam:-> abdominal distention sp coilsFINAL [...] MDReport Verified Date/Time: 06/21/2018 20:57:09 Reading Location: [facility] C013W Consult Reading Room W/PLT COUNT & AUTO [id number] 18:35:00* Test Item Value Reference Range Interpretation [...] Received comment: User comments: Slide comments: POCT-GLUCOSE [id number] 17:53:00* Test Item Value Reference Range Interpretation Comments POC-GLUCOSE METER (BEAKER) (test code = 1538) 212 mg/dL 70-[address] [facility] [address] [facility] [address] BASIC METABOLIC [id number] 17:52:00* Test Item Value Reference Range Interpretation [...] FOR DIALYSIS PATIENTS. Specimen markedly ictericLACTIC ACID, [id number] 17:45:00* Test Item Value Reference Range Interpretation Comments LACTATE BLOOD ARTERIAL (2) (BEAKER) (test code = 2874) 0.6 mmol/L 0.5-2.2 Specimen markedly ictericHEMOGLOBIN AND [id number] 17:32:00* Test Item Value Reference Range Interpretation Comments HEMOGLOBIN (BEAKER) (test code = 410) 7.4 GM/DL 13.7-17.5 L HEMATOCRIT (BEAKER) (test code = 411) 22.4 % 40.1-51.0 L BLOOD GAS, [id number] 17:25:00* Test Item Value Reference Range Interpretation [...] 0.0-5.0 H RAD, CHEST, 1 VIEW, NON [id number] 14:14:00Reason for exam:->line placementShould this be performed [...] MDReport Verified Date/Time: 06/21/2018 14:14:23 Reading Location: [facility] C013W Consult Reading Room GLOBIN AND [id number] 14:12:00* Test Item Value Reference Range Interpretation Comments HEMOGLOBIN (BEAKER) (test code = 410) 6.3 GM/DL 13.7-17.5 L HEMATOCRIT (BEAKER) (test code = 411) 19.7 % 40.1-51.0 L PROTHROMBIN [id number] 14:10:00* Test Item Value Reference Range Interpretation Comments PROTIME (BEAKER) (test code = 759) 18.5 seconds 11.7-14.7 H INR (BEAKER) (test code = 370) 1.5 <=5.9 RECOMMENDED COUMADIN/WARFARIN INR THERAPY RANGESSTANDARD DOSE: 2.0 - 3.0 Inclu herb: PROPHYLAXIS for venous thrombosis, systemic embolization; TREATMENT for giulia ous thrombosis and/or pulmonary embolus.HIGH RISK: Target INR is 2.5-3.5 for pat ients with mechanical heart valves.[id number] 14:10:00* Test Item Value Reference Range Interpretation Comments FIBRINOGEN LEVEL (BEAKER) (test code = 658) 405 mg/dl 225-434 [id number] 14:10:00* Test Item Value Reference Range Interpretation Comments PARTIAL THROMBOPLASTIN TIME (BEAKER) (test code = 760) 43.9 seconds 22.5-36.0 H LACTIC ACID, [id number] 13:57:00* Test Item Value Reference Range Interpretation Comments LACTATE BLOOD ARTERIAL (2) (BEAKER) (test code = 2874) 0.8 mmol/L 0.5-2.2 Specimen markedly ictericPLATELET [id number] 13:47:00* Test Item Value Reference Range Interpretation Comments PLATELET COUNT (BEAKER) (test code = 756) 347 K/CU MM 150-450 CALCIUM, [id number] 13:46:00* Test Item Value Reference Range Interpretation Comments CALCIUM IONIZED (BEAKER) (test code = 698) 1.03 mmol/L 1.12-1.27 L PH, BLOOD (BEAKER) (test code = 1810) 7.40 POTASSIUM-STAT [id number] 13:45:00* Test Item Value Reference Range Interpretation Comments POTASSIUM (BEAKER) (test code = 379) 3.3 meq/L 3.6-5.5 L GLUCOSE-STAT [id number] 13:45:00* Test Item Value Reference Range Interpretation Comments GLUCOSE RANDOM (BEAKER) (test code = 652) 213 mg/dL 70-110 H HGB/HCT (H&H) - STAT [id number] 13:45:00* Test Item Value Reference Range Interpretation Comments HEMOGLOBIN (BEAKER) (test code = 410) 6.4 g/dL 13.0-16.8 L HEMATOCRIT (BEAKER) (test code = 411) 19.0 % 40.0-50.0 L BLOOD GAS, [id number] 13:45:00* Test Item Value Reference Range Interpretation [...] code = 1819) 40.0 % SODIUM NA-STAT [id number] 13:44:00* Test Item Value Reference Range Interpretation Comments SODIUM (BEAKER) (test code = 381) 142 meq/L 135-148 [id number] 12:39:00* Test Item Value Reference Range Interpretation Comments PROCALCITONIN (BEAKER) (test code = 3036) 3.47 ng/mL <0.05 H SEPSIS RISK (ng/mL)Low: 0.05-0.50Intermediate: 0.51-2.00High: > =2.01POCT-GLUCOSE [id number] 12:37:00* Test Item Value Reference Range Interpretation Comments POC-GLUCOSE METER (BEAKER) (test code = 1538) 242 mg/dL 70-[address] [facility] [address] [facility] [address] LACTIC ACID, [id number] 12:37:00* Test Item Value Reference Range Interpretation Comments LACTATE BLOOD ARTERIAL (2) (BEAKER) (test code = 2874) 1.0 mmol/L 0.5-2.2 Specimen markedly ictericBLOOD GAS, [id number] 12:23:00* Test Item Value Reference Range Interpretation [...] code = 1819) 40.0 % HEMOGLOBIN AND [id number] 11:40:00* Test Item Value Reference Range Interpretation Comments HEMOGLOBIN (BEAKER) (test code = 410) 7.3 GM/DL 13.7-17.5 L HEMATOCRIT (BEAKER) (test code = 411) 22.6 % 40.1-51.0 L URINALYSIS W/ REFLEX URINE [id number] 11:19:00* Test Item Value Reference Range Interpretation [...] SOURCE(BEAKER) (test code = 2795) OXYGEN SATURATION, [id number] 11:10:00* Test Item Value Reference Range Interpretation Comments O2 SATURATION (MEASURED) (BEAKER) (test code = 1455) 63.5 % POCT-GLUCOSE [id number] 09:37:00* Test Item Value Reference Range Interpretation Comments POC-GLUCOSE METER (BEAKER) (test code = 1538) 258 mg/dL 70-[address] [facility] [address] [facility] [address] CBC W/PLT COUNT & AUTO [id number] 08:40:00* Test Item Value Reference Range Interpretation [...] MDReport Verified Date/Time: 06/21/2018 07:46:59 Reading Location: [facility] Radiology Reading Room TIC FUNCTION [id number] 04:40:00* Test Item Value Reference Range Interpretation [...] U/L 6-55 H Specimen markedly ictericBASIC METABOLIC [id number] 04:40:00* Test Item Value Reference Range Interpretation [...] NOT APPLICABLE FOR DIALYSIS PATIENTS. Specimen markedly [id number] 04:26:00* Test Item Value Reference Range Interpretation Comments MAGNESIUM (BEAKER) (test code = 627) 2.1 mg/dL 1.6-2.6 LACTIC ACID, [id number] 04:17:00* Test Item Value Reference Range Interpretation Comments LACTATE BLOOD ARTERIAL (2) (BEAKER) (test code = 2874) 1.0 mmol/L 0.5-2.2 Specimen markedly [id number] 04:12:00* Test Item Value Reference Range Interpretation Comments PARTIAL THROMBOPLASTIN TIME (BEAKER) (test code = 760) 47.7 seconds 22.5-36.0 H PROTHROMBIN TIME/[id number] 04:11:00* Test Item Value Reference Range Interpretation [...] pat ients with mechanical heart valves.BLOOD GAS, [id number] 03:57:00* Test Item Value Reference Range Interpretation [...] (BEAKER) (test code = 1819) 40.0 % [id number] 01:01:00* Test Item Value Reference Range Interpretation Comments POTASSIUM (BEAKER) (test code = 379) 3.4 meq/L 3.5-5.1 L PRN - repeat glucose levels every 1 hour or as specified by insulin titration or ders until glucose level is less than 450 mg/dLCheck Serum Potassium level 2 roxy rs after oral potassium replacement completed or 30 min after intravenous potass ium replacement.[id number] 01:01:00* Test Item Value Reference Range Interpretation Comments MAGNESIUM (BEAKER) (test code = 627) 2.0 mg/dL 1.6-2.6 PRN - repeat glucose levels every 1 hour or as specified by insulin titration or ders until glucose level is less than 450 mg/dLCheck Serum Potassium level 2 roxy rs after oral potassium replacement completed or 30 min after intravenous potass ium replacement.[id number] 01:01:00* Test Item Value Reference Range Interpretation Comments GLUCOSE RANDOM (BEAKER) (test code = 652) 220 mg/dL 70-105 H PRN - repeat glucose levels every 1 hour or as specified by insulin titration or ders until glucose level is less than 450 mg/dLCheck Serum Potassium level 2 roxy rs after oral potassium replacement completed or 30 min after intravenous potass ium replacement.CALCIUM, [id number] 00:47:00* Test Item Value Reference Range Interpretation Comments CALCIUM IONIZED (BEAKER) (test code = 698) 1.05 mmol/L 1.12-1.27 L PH, BLOOD (BEAKER) (test code = 1810) 7.48 Check serum Ionized Calcium level after 4 hours after IV Calcium replacement. BLOOD GAS, [id number] 21:09:00* Test Item Value Reference Range Interpretation [...] code = 1819) 40.0 % Before ventPOCT-GLUCOSE [id number] 17:55:00* Test Item Value Reference Range Interpretation Comments POC-GLUCOSE METER (BEAKER) (test code = 1538) 254 mg/dL 70-[address] [facility] [address] [facility] [address] BASIC METABOLIC [id number] 17:37:00* Test Item Value Reference Range Interpretation [...] FOR DIALYSIS PATIENTS. Specimen markedly ictericHEMOGLOBIN AND [id number] 17:18:00* Test Item Value Reference Range Interpretation Comments HEMOGLOBIN (BEAKER) (test code = 410) 8.2 GM/DL 13.7-17.5 L HEMATOCRIT (BEAKER) (test code = 411) 24.9 % 40.1-51.0 L CALCIUM, [id number] 17:14:00* Test Item Value Reference Range Interpretation Comments CALCIUM IONIZED (BEAKER) (test code = 698) 1.04 mmol/L 1.12-1.27 L PH, BLOOD (BEAKER) (test code = 1810) 7.49 Check serum Ionized Calcium level after 4 hours after IV Calcium replacement. POCT-GLUCOSE [id number] 17:00:00* Test Item Value Reference Range Interpretation Comments POC-GLUCOSE METER (BEAKER) (test code = 1538) 238 mg/dL 70-[address] [facility] [address] [facility] [address] POCT-GLUCOSE [id number] 11:59:00* Test Item Value Reference Range Interpretation Comments POC-GLUCOSE METER (BEAKER) (test code = 1538) 199 mg/dL 70-[address] [facility] [address] [facility] [address] BASIC METABOLIC [id number] 10:07:00* Test Item Value Reference Range Interpretation [...] FOR DIALYSIS PATIENTS. Specimen markedly ictericHEMOGLOBIN AND [id number] 09:56:00* Test Item Value Reference Range Interpretation Comments HEMOGLOBIN (BEAKER) (test code = 410) 8.2 GM/DL 13.7-17.5 L HEMATOCRIT (BEAKER) (test code = 411) 24.9 % 40.1-51.0 L SPUTUM CULTURE + GRAM [id number] 09:21:00* Test Item Value Reference Range Interpretation Comments CULTURE (BEAKER) (test code = 1095) <1+ Normal respiratory chase pr esent GRAM STAIN RESULT (BEAKER) (test code = 1123) <1+ WBCs GRAM STAIN RESULT (BEAKER) (test code = 36189) 0-5 epithelial cells GRAM STAIN RESULT (BEAKER) (test code = 36626) No organisms seen CBC W/PLT COUNT & AUTO [id number] 08:52:00* Test Item Value Reference Range Interpretation [...] quate Received comment: User comments: Slide comments: [id number] 08:27:00* Test Item Value Reference Range Interpretation Comments T3 TOTAL (BEAKER) (test code = 656) 55 ng/dL 48-159 CALCIUM, [id number] 05:17:00* Test Item Value Reference Range Interpretation Comments CALCIUM IONIZED (BEAKER) (test code = 698) 1.01 mmol/L 1.12-1.27 L PH, BLOOD (BEAKER) (test code = 1810) 7.43 HEPATIC FUNCTION [id number] 05:05:00* Test Item Value Reference Range Interpretation [...] U/L 6-55 H Specimen markedly ictericBASIC METABOLIC [id number] 05:05:00* Test Item Value Reference Range Interpretation [...] NOT APPLICABLE FOR DIALYSIS PATIENTS. Specimen markedly [id number] 05:04:00* Test Item Value Reference Range Interpretation Comments MAGNESIUM (BEAKER) (test code = 627) 2.2 mg/dL 1.6-2.6 RAD, CHEST, 1 VIEW, NON [id number] 04:59:00Reason for exam:->Pulmonary edema evaluationShould this be [...] findings: None. Signed: Adri Avendaño Verified Date/Time: 06/20/2018 04:59:55 Reading Location: [address] Neuro Reading Room [id number] 04:44:00* Test Item Value Reference Range Interpretation Comments PARTIAL THROMBOPLASTIN TIME (BEAKER) (test code = 760) 45.0 seconds 22.5-36.0 H PROTHROMBIN TIME/[id number] 04:43:00* Test Item Value Reference Range Interpretation [...] pat ients with mechanical heart valves.LACTIC ACID, [id number] 04:41:00* Test Item Value Reference Range Interpretation Comments LACTATE BLOOD ARTERIAL (2) (BEAKER) (test code = 2874) 0.6 mmol/L 0.5-2.2 Specimen markedly ictericBLOOD GAS, [id number] 04:29:00* Test Item Value Reference Range Interpretation [...] code = 1819) 40.0 % BASIC METABOLIC [id number] 01:12:00* Test Item Value Reference Range Interpretation [...] FOR DIALYSIS PATIENTS. Specimen markedly ictericHEMOGLOBIN AND [id number] 00:24:00* Test Item Value Reference Range Interpretation Comments HEMOGLOBIN (BEAKER) (test code = 410) 8.3 GM/DL 13.7-17.5 L HEMATOCRIT (BEAKER) (test code = 411) 25.0 % 40.1-51.0 L POCT-GLUCOSE [id number] 00:18:00* Test Item Value Reference Range Interpretation Comments POC-GLUCOSE METER (BEAKER) (test code = 1538) 233 mg/dL 70-[address] [facility] [address] [facility] [address] HEMOGLOBIN AND [id number] 20:18:00* Test Item Value Reference Range Interpretation Comments HEMOGLOBIN (BEAKER) (test code = 410) 8.4 GM/DL 13.7-17.5 L HEMATOCRIT (BEAKER) (test code = 411) 25.0 % 40.1-51.0 L BASIC METABOLIC [id number] 19:06:00* Test Item Value Reference Range Interpretation [...] FOR DIALYSIS PATIENTS. Specimen markedly ictericBASIC METABOLIC [id number] 19:06:00* Test Item Value Reference Range Interpretation [...] FOR DIALYSIS PATIENTS. Specimen markedly ictericHEMOGLOBIN AND [id number] 18:48:00* Test Item Value Reference Range Interpretation Comments HEMOGLOBIN (BEAKER) (test code = 410) 8.3 GM/DL 13.7-17.5 L HEMATOCRIT (BEAKER) (test code = 411) 25.7 % 40.1-51.0 L POCT-GLUCOSE [id number] 17:33:00* Test Item Value Reference Range Interpretation Comments POC-GLUCOSE METER (BEAKER) (test code = 1538) 193 mg/dL 70-[address] [facility] [address] [facility] [address] CYTOMEGALOVIRUS ANTIBODY, [id number] 14:16:00* Test Item Value Reference Range Interpretation Comments CYTOMEGALOVIRUS, IGG (BEAKER) (test code = 3429) Negative Negat mumtaz, Equivocal CMV IgG Result Interpretation: </= 0.8 Al Negative 0.9-1.0 Al Equivocal > /=1.1 Al PositiveCYTOMEGALOVIRUS ANTIBODY, [id number] 14:16:00* Test Item Value Reference Range Interpretation Comments CYTOMEGALOVIRUS IGM ANTIBODY (BEAKER) (test code = 3437) Neg ative Negative, Equivocal CMV IgM Result Interpretation: </= 0.8 Al Negative 0.9-1.0 Al Equivocal > /= 1.1 Al PositiveEBV ANTIBODY, [id number] 14:16:00* Test Item Value Reference Range Interpretation Comments ALEX MAE VIRAL CAPSID ANTIGEN IGG (BEAKER) (test code = 3415) Positive Negative, Equivocal A Alex Mae Viral Capsid Antigen IgG Result Interpretation: </= 0.8 Al Negative 0.9-1.0 Al Equivocal >/= 1.1 Al PositiveEBV ANTIBODY, [id number] 14:16:00* Test Item Value Reference Range Interpretation [...] = 411) 26.4 % 40.1-51.0 L POCT-GLUCOSE [id number] 12:45:00* Test Item Value Reference Range Interpretation Comments POC-GLUCOSE METER (BEAKER) (test code = 1538) 204 mg/dL 70-[address] [facility] [address] [facility] [address] CBC W/PLT COUNT & AUTO [id number] 11:32:00* Test Item Value Reference Range Interpretation [...] manually reviewed rbc morp hology on the [id number] 11:25:00* Test Item Value Reference Range Interpretation Comments RPR SCREEN (BEAKER) (test code = 420) Nonreactive Nonreactive [id number] 11:23:00* Test Item Value Reference Range Interpretation Comments AMMONIA (BEAKER) (test code = 348) 62 mol/L 18-72 HEMOGLOBIN AND [id number] 10:37:00* Test Item Value Reference Range Interpretation Comments HEMOGLOBIN (BEAKER) (test code = 410) 7.9 GM/DL 13.7-17.5 L HEMATOCRIT (BEAKER) (test code = 411) 24.4 % 40.1-51.0 L BASIC METABOLIC [id number] 09:29:00* Test Item Value Reference Range Interpretation [...] APPLICABLE FOR DIALYSIS PATIENTS. Specimen markedly ictericPOCT-GLUCOSE [id number] 08:36:00* Test Item Value Reference Range Interpretation Comments POC-GLUCOSE METER (BEAKER) (test code = 1538) 211 mg/dL 70-[address] [facility] [address] [facility] [address] RAD, CHEST, 1 VIEW, NON [id number] 07:24:00Reason for exam:->Pulmonary edema evaluationShould this be [...] MDReport Verified Date/Time: 06/19/2018 07:24:06 Reading Location: [facility] C013V Neuro Reading Room Electronically signed by: OMERO MOURA M.D. on 07:24 AM [id number] 05:40:00* Test Item Value Reference Range Interpretation Comments PARTIAL THROMBOPLASTIN TIME (BEAKER) (test code = 760) 44.4 seconds 22.5-36.0 H PROTHROMBIN [id number] 05:39:00* Test Item Value Reference Range Interpretation [...] pat ients with mechanical heart valves.HEPATIC FUNCTION [id number] 05:17:00* Test Item Value Reference Range Interpretation [...] U/L 6-55 H Specimen markedly ictericBASIC METABOLIC [id number] 05:17:00* Test Item Value Reference Range Interpretation [...] NOT APPLICABLE FOR DIALYSIS PATIENTS. Specimen markedly [id number] 05:13:00* Test Item Value Reference Range Interpretation Comments PHOSPHORUS (BEAKER) (test code = 604) 5.3 mg/dL 2.3-4.7 H [id number] 05:13:00* Test Item Value Reference Range Interpretation Comments MAGNESIUM (BEAKER) (test code = 627) 2.2 mg/dL 1.6-2.6 LACTIC ACID, [id number] 04:57:00* Test Item Value Reference Range Interpretation Comments LACTATE BLOOD ARTERIAL (2) (BEAKER) (test code = 2874) 0.7 mmol/L 0.5-2.2 Specimen markedly ictericCALCIUM, [id number] 04:46:00* Test Item Value Reference Range Interpretation Comments CALCIUM IONIZED (BEAKER) (test code = 698) 1.07 mmol/L 1.12-1.27 L PH, BLOOD (BEAKER) (test code = 1810) 7.47 BLOOD GAS, [id number] 04:46:00* Test Item Value Reference Range Interpretation [...] code = 1819) 40.0 % OCCULT BLOOD, [id number] 01:25:00* Test Item Value Reference Range Interpretation Comments FECAL OCCULT BLOOD (BEAKER) (test code = 618) Positive Negative A BASIC METABOLIC [id number] 23:56:00* Test Item Value Reference Range Interpretation [...] APPLICABLE FOR DIALYSIS PATIENTS. Specimen markedly ictericCALCIUM, [id number] 23:54:00* Test Item Value Reference Range Interpretation Comments CALCIUM IONIZED (BEAKER) (test code = 698) 1.11 mmol/L 1.12-1.27 L PH, BLOOD (BEAKER) (test code = 1810) 7.46 Check serum Ionized Calcium level after 4 hours after IV Calcium replacement. HEMOGLOBIN AND [id number] 23:37:00* Test Item Value Reference Range Interpretation Comments HEMOGLOBIN (BEAKER) (test code = 410) 7.0 GM/DL 13.7-17.5 L HEMATOCRIT (BEAKER) (test code = 411) 22.2 % 40.1-51.0 L POCT-GLUCOSE [id number] 23:36:00* Test Item Value Reference Range Interpretation Comments POC-GLUCOSE METER (BEAKER) (test code = 1538) 161 mg/dL 70-[address] [facility] [address] [facility] [address] HEMOGLOBIN AND [id number] 20:42:00* Test Item Value Reference Range Interpretation Comments HEMOGLOBIN (BEAKER) (test code = 410) 7.2 GM/DL 13.7-17.5 L HEMATOCRIT (BEAKER) (test code = 411) 22.3 % 40.1-51.0 L CBC W/PLT COUNT & AUTO [id number] 18:06:00* Test Item Value Reference Range Interpretation [...] Received comment: User comments: Slide comments: POCT-GLUCOSE [id number] 17:33:00* Test Item Value Reference Range Interpretation Comments POC-GLUCOSE METER (BEAKER) (test code = 1538) 196 mg/dL 70-[address] [facility] [address] [facility] [address] BASIC METABOLIC [id number] 17:24:00* Test Item Value Reference Range Interpretation [...] NOT APPLICABLE FOR DIALYSIS PATIENTS. Specimen markedly [id number] 14:47:00* Test Item Value Reference Range Interpretation Comments T4 TOTAL (BEAKER) (test code = 895) 8.1 ug/dL 4.9-11.7 CRYPTOCOCCAL [id number] 14:31:00* Test Item Value Reference Range Interpretation Comments CRYPTOCOCCAL ANTIGEN, SERUM (BEAKER) (test code = 1828) Nega tive Negative, Interference [id number] 14:20:00* Test Item Value Reference Range Interpretation Comments FERRITIN (BEAKER) (test code = 361) 2332 ng/mL 5-275 H LIPID [id number] 14:07:00* Test Item Value Reference Range Interpretation [...] High 160-189 Very High >=190 Specimen markedly [id number] 13:01:00* Test Item Value Reference Range Interpretation Comments PROSTATE SPECIFIC ANTIGEN (BEAKER) (test code = 844) 0.5 ng/mL 0 .0-4.0 HIV-1 ANTIGEN WITH HIV-1/2 [id number] 13:01:00* Test Item Value Reference Range Interpretation Comments HIV-1 ANTIGEN WITH HIV 1\\T\\2 ANTIBODY (2) (BEAKER) (te st code = 2586) Nonreactive Nonreactive CARCINOEMBRYONIC ANTIGEN (CEA)2018-06-18 13:01:00* Test Item Value Reference Range Interpretation Comments CARCINOEMBRYONIC ANTIGEN (BEAKER) (test code = 685) 16.6 ng/mL 0. 0-5.0 H VITAMIN D, [id number] 13:01:00* Test Item Value Reference Range Interpretation Comments VITAMIN D 25-OH (BEAKER) (test code = 2764) 14.7 ng/mL 6.6-49.9 Effective 12/06/2016: Reference Range ChangeNew: 6.6-49.9 ng/mL Previous: 13.0 -47.8 ng/mLRecommended Vitamin D Target Range: 30.0-40.0 ng/mLPOCT-GLUCOSE METER 2018-06-18 12:53:00* Test Item Value Reference Range Interpretation Comments POC-GLUCOSE METER (BEAKER) (test code = 1538) 239 mg/dL 70-[address] [facility] [address] [place] [address] [id number] 12:43:00* Test Item Value Reference Range Interpretation Comments TRANSFERRIN (BEAKER) (test code = 541) 112 mg/dL 174-382 L Specimen markedly ictericURIC [id number] 12:42:00* Test Item Value Reference Range Interpretation Comments URIC ACID (BEAKER) (test code = 773) 15.6 mg/dL 2.6-7.2 H Specimen markedly ictericGAMMA GLUTAMYL TRANSFERASE (GGT)2018-06-18 12:42:00* Test Item Value Reference Range Interpretation Comments GAMMA GLUTAMYL TRANSFERASE (BEAKER) (test code = 364) 125 U/L 9-64 H Specimen markedly [id number] 12:40:00* Test Item Value Reference Range Interpretation Comments ETHANOL (BEAKER) (test code = 400) < mg/dL <=10 [id number] 12:35:00* Test Item Value Reference Range Interpretation Comments FIBRINOGEN LEVEL (BEAKER) (test code = 658) 811 mg/dl 225-434 H BLOOD [id number] 11:56:00* Test Item Value Reference Range Interpretation Comments CULTURE (BEAKER) (test code = 1095) No growth in 5 days BLOOD [id number] 11:56:00* Test Item Value Reference Range Interpretation Comments CULTURE (BEAKER) (test code = 1095) No growth in 5 days CALCIUM, [id number] 11:40:00* Test Item Value Reference Range Interpretation Comments CALCIUM IONIZED (BEAKER) (test code = 698) 1.12 mmol/L 1.12-1.27 PH, BLOOD (BEAKER) (test code = 1810) 7.49 CBC W/PLT COUNT & AUTO [id number] 08:56:00* Test Item Value Reference Range Interpretation [...] WBC: SEGMENTED WITH TOXIG GRANU LATION PRESENT [id number] 08:54:00* Test Item Value Reference Range Interpretation Comments MAGNESIUM (BEAKER) (test code = 627) 2.3 mg/dL 1.6-2.6 BASIC METABOLIC [id number] 08:54:00* Test Item Value Reference Range Interpretation [...] APPLICABLE FOR DIALYSIS PATIENTS. Specimen markedly ictericPOCT-GLUCOSE [id number] 08:29:00* Test Item Value Reference Range Interpretation Comments POC-GLUCOSE METER (BEAKER) (test code = 1538) 223 mg/dL 70-[address] [facility] [address] [facility] [address] RAD, CHEST, 1 VIEW, NON [id number] 04:54:00Reason for exam:->Pulmonary edema evaluationShould this be [...] pleural effusion or pneumothorax. Signed: Nicolás Ceballos MDReport Verified D ate/Time: 06/18/2018 04:54:27 Reading Location: [facility] B1 C013Y CT Body Reading Ro om D GAS, [id number] 04:39:00* Test Item Value Reference Range Interpretation [...] code = 1819) 40.0 % HEPATIC FUNCTION [id number] 04:35:00* Test Item Value Reference Range Interpretation [...] 347) 138 U/L 6-55 H Specimen markedly [id number] 04:34:00* Test Item Value Reference Range Interpretation Comments MAGNESIUM (BEAKER) (test code = 627) 2.5 mg/dL 1.6-2.6 BASIC METABOLIC [id number] 04:34:00* Test Item Value Reference Range Interpretation [...] code = 380) 50 U/L 29-20 0 [id number] 04:23:00* Test Item Value Reference Range Interpretation Comments PARTIAL THROMBOPLASTIN TIME (BEAKER) (test code = 760) 49.4 seconds 22.5-36.0 H PROTHROMBIN [id number] 04:22:00* Test Item Value Reference Range Interpretation [...] pat ients with mechanical heart valves.LACTIC ACID, [id number] 04:17:00* Test Item Value Reference Range Interpretation Comments LACTATE BLOOD ARTERIAL (2) (BEAKER) (test code = 2874) 1.3 mmol/L 0.5-2.2 Specimen markedly [id number] 00:59:00* Test Item Value Reference Range Interpretation Comments MAGNESIUM (BEAKER) (test code = 627) 2.1 mg/dL 1.6-2.6 BASIC METABOLIC [id number] 00:59:00* Test Item Value Reference Range Interpretation [...] APPLICABLE FOR DIALYSIS PATIENTS. Specimen markedly ictericPOCT-GLUCOSE [id number] 00:20:00* Test Item Value Reference Range Interpretation Comments POC-GLUCOSE METER (BEAKER) (test code = 1538) 155 mg/dL 70-[address] [facility] [address] [facility] [address] POCT-GLUCOSE [id number] 18:09:00* Test Item Value Reference Range Interpretation Comments POC-GLUCOSE METER (BEAKER) (test code = 1538) 187 mg/dL 70-[address] [facility] [address] [facility] [address] BASIC METABOLIC [id number] 16:09:00* Test Item Value Reference Range Interpretation [...] APPLICABLE FOR DIALYSIS PATIENTS. Specimen markedly ictericPOCT-GLUCOSE [id number] 12:03:00* Test Item Value Reference Range Interpretation Comments POC-GLUCOSE METER (BEAKER) (test code = 1538) 212 mg/dL 70-110 H TESTED AT [address] [address] [id number] 11:52:00* Test Item Value Reference Range Interpretation Comments MAGNESIUM (BEAKER) (test code = 627) 2.0 mg/dL 1.6-2.6 BASIC METABOLIC [id number] 11:52:00* Test Item Value Reference Range Interpretation [...] Specimen markedly ictericPERIPHERAL BLOOD SMEAR - PATHOLOGIST [id number] 08:37:00* Test Item Value Reference Range Interpretation Comments PERIPHERAL SMR REVIEW (BEAKER) (test code = 2640) Left shifted granulocytes with toxic changes. No circulating blasts. No significantly increased schistocytes. [id number] (BEAKER) (test code = 2849) Raul Arenas M.D.(electronic signature) RAD, CHEST, 1 VIEW, NON [id number] 08:15:00Reason for exam:->Pulmonary edema evaluationShould this be performed at the bedside?->YesFINAL REPORT Chest, one view. HISTORY: Pulmonary edema evaluation COMPARISON: Radiograph from 06/16/2018 IMPRESSION: Unchanged positioning of support lines and tubes. The interstitial edema is unchanged. No pleural effusion or pneumothorax. The cardiac silhouette is unchanged. No acute bony abnormality. Signed: Kyle Rae MDReport Verified Date/Time: 06/17/2018 08:15:08 Reading Location: [facility] Radiology Reading Room LT BLOOD, [id number] 07:04:00* Test Item Value Reference Range Interpretation Comments FECAL OCCULT BLOOD (BEAKER) (test code = 618) Negative Negative POCT-GLUCOSE [id number] 06:28:00* Test Item Value Reference Range Interpretation Comments POC-GLUCOSE METER (BEAKER) (test code = 1538) 209 mg/dL 70-[address] [facility] [address] [facility] [address] [id number] 05:05:00* Test Item Value Reference Range Interpretation Comments PARTIAL THROMBOPLASTIN TIME (BEAKER) (test code = 760) 51.6 seconds 22.5-36.0 H PROTHROMBIN [id number] 05:04:00* Test Item Value Reference Range Interpretation [...] pat ients with mechanical heart valves.HEPATIC FUNCTION [id number] 04:18:00* Test Item Value Reference Range Interpretation [...] 347) 146 U/L 6-55 H Specimen markedly [id number] 03:59:00* Test Item Value Reference Range Interpretation Comments MAGNESIUM (BEAKER) (test code = 627) 2.4 mg/dL 1.6-2.6 BASIC METABOLIC [id number] 03:59:00* Test Item Value Reference Range Interpretation [...] NOT APPLICABLE FOR DIALYSIS PATIENTS. Specimen markedly [id number] 03:59:00* Test Item Value Reference Range Interpretation Comments AMYLASE (BEAKER) (test code = 349) 49 U/L 25-125 Specimen markedly [id number] 03:59:00* Test Item Value Reference Range Interpretation Comments LIPASE (BEAKER) (test code = 749) 186 U/L 8-78 H Specimen markedly ictericLACTIC ACID, [id number] 03:41:00* Test Item Value Reference Range Interpretation Comments LACTATE BLOOD ARTERIAL (2) (BEAKER) (test code = 2874) 1.5 mmol/L 0.5-2.2 Specimen markedly ictericCBC W/PLT COUNT & AUTO [id number] 03:38:00 * Test Item Value Reference Range [...] 2801) 3 % 0-1 H BLOOD GAS, [id number] 03:30:00* Test Item Value Reference Range Interpretation [...] (test code = 1819) 40.0 % CALCIUM, [id number] 03:28:00* Test Item Value Reference Range Interpretation Comments CALCIUM IONIZED (BEAKER) (test code = 698) 1.14 mmol/L 1.12-1.27 PH, BLOOD (BEAKER) (test code = 1810) 7.53 Check serum Ionized Calcium level after 4 hours after IV Calcium replacement. POCT-GLUCOSE [id number] 00:11:00* Test Item Value Reference Range Interpretation Comments POC-GLUCOSE METER (BEAKER) (test code = 1538) 233 mg/dL 70-[address] [facility] [address] [facility] [address] HEMOGLOBIN AND [id number] 23:41:00* Test Item Value Reference Range Interpretation Comments HEMOGLOBIN (BEAKER) (test code = 410) 8.3 GM/DL 13.7-17.5 L HEMATOCRIT (BEAKER) (test code = 411) 26.1 % 40.1-51.0 L [id number] 20:50:00* Test Item Value Reference Range Interpretation Comments MAGNESIUM (BEAKER) (test code = 627) 2.5 mg/dL 1.6-2.6 BASIC METABOLIC [id number] 20:50:00* Test Item Value Reference Range Interpretation [...] APPLICABLE FOR DIALYSIS PATIENTS. Specimen markedly ictericCALCIUM, [id number] 20:26:00* Test Item Value Reference Range Interpretation Comments CALCIUM IONIZED (BEAKER) (test code = 698) 1.11 mmol/L 1.12-1.27 L PH, BLOOD (BEAKER) (test code = 1810) 7.53 Check serum Ionized Calcium level after 4 hours after IV Calcium replacement. POCT-GLUCOSE [id number] 20:07:00* Test Item Value Reference Range Interpretation Comments POC-GLUCOSE METER (BEAKER) (test code = 1538) 203 mg/dL 70-[address] [facility] [address] [facility] [address] POCT-GLUCOSE [id number] 16:57:00* Test Item Value Reference Range Interpretation Comments POC-GLUCOSE METER (BEAKER) (test code = 1538) 130 mg/dL 70-110 H TESTED AT [address] [address] VITAMIN B12 AND [id number] 16:12:00* Test Item Value Reference Range Interpretation Comments VITAMIN B12 (BEAKER) (test code = 774) 1499 pg/mL 213-816 H FOLATE (BEAKER) (test code = 362) 14.9 ng/mL >=7.0 POCT-GLUCOSE [id number] 15:35:00* Test Item Value Reference Range Interpretation Comments POC-GLUCOSE METER (BEAKER) (test code = 1538) 101 mg/dL 70-110 TESTED AT [place] [id number] [facility] [address] (MANUAL DIFFERENTIAL)2018-06-16 14:42:00* Test Item Value Reference [...] RBCS(BEAKER) (test code = 478) 1+ few [id number] 14:16:00* Test Item Value Reference Range Interpretation Comments HAPTOGLOBIN (BEAKER) (test code = 366) 250 mg/dL 14-258 [id number] 14:09:00* Test Item Value Reference Range Interpretation Comments MAGNESIUM (BEAKER) (test code = 627) 2.1 mg/dL 1.6-2.6 BASIC METABOLIC [id number] 14:09:00* Test Item Value Reference Range Interpretation [...] NOT APPLICABLE FOR DIALYSIS PATIENTS. Specimen markedly [id number] 14:09:00* Test Item Value Reference Range Interpretation Comments AMYLASE (BEAKER) (test code = 349) 55 U/L 25-125 Specimen markedly ictericLACTATE DEHYDROGENASE (LDH)2018-06-16 14:09:00* Test Item Value Reference Range Interpretation Comments LACTATE DEHYDROGENASE (BEAKER) (test code = 635) 388 U/L 125-2 20 H [id number] 14:09:00* Test Item Value Reference Range Interpretation [...] = 2590) 30 % 20-5 5 IRON, [id number] 14:04:00* Test Item Value Reference Range Interpretation Comments IRON (BEAKER) (test code = 547) 37.0 ug/dL 40.0-160.0 L LACTIC ACID, [id number] 14:02:00* Test Item Value Reference Range Interpretation [...] 0 /100 WBC 0 -0 BLOOD GAS, [id number] 13:45:00* Test Item Value Reference Range Interpretation [...] (test code = 1819) 100.0 % POCT-GLUCOSE [id number] 13:23:00* Test Item Value Reference Range Interpretation Comments POC-GLUCOSE METER (BEAKER) (test code = 1538) 121 mg/dL 70-[address] [facility] [address] [facility] [address] POCT-GLUCOSE [id number] 11:05:00* Test Item Value Reference Range Interpretation Comments POC-GLUCOSE METER (BEAKER) (test code = 1538) 145 mg/dL 70-[address] [facility] [address] [facility] [address] POCT-GLUCOSE [id number] 08:56:00* Test Item Value Reference Range Interpretation Comments POC-GLUCOSE METER (BEAKER) (test code = 1538) 147 mg/dL 70-[address] [facility] [address] [place] [address] CBC W/PLT COUNT & AUTO [id number] 08:10:00* Test Item Value Reference Range Interpretation [...] 1+ few RAD, CHEST, 1 VIEW, NON [id number] 07:59:00Reason for exam:->Pulmonary edema evaluationShould this be performed at the bedside?->YesFINAL REPORT INDICATION: Pulmonary edema evaluation COMPARISON:June 15. TECHNIQUE: Chest radiograph, single view, portable technique. FINDINGS / IMPRESSION: Prominent heart shadow and diffuse interstitial pulmonary edema are again demonstrated. Support lines and tubes unchanged and appear satisfactory. No pneumothorax. Signed: Natalio Santillan MDReport Verified Date/Time: 06/16/2018 07:59:49 Reading Location: [facility] B1 C013W Consult Reading Room [facility] signed by: NATALIO SANTILLAN M.D. on 06/16/2018 07:59 AM POCT- GLUCOSE [id number] 07:05:00* Test Item Value Reference Range Interpretation Comments POC-GLUCOSE METER (BEAKER) (test code = 1538) 114 mg/dL 70-[address] [facility] [address] [facility] [address] POCT-GLUCOSE [id number] 05:09:00* Test Item Value Reference Range Interpretation Comments POC-GLUCOSE METER (BEAKER) (test code = 1538) 120 mg/dL 70-[address] [facility] [address] [facility] [address] HEPATIC FUNCTION [id number] 04:53:00* Test Item Value Reference Range Interpretation [...] 347) 138 U/L 6-55 H Specimen markedly [id number] 04:30:00* Test Item Value Reference Range Interpretation Comments MAGNESIUM (BEAKER) (test code = 627) 2.3 mg/dL 1.6-2.6 BASIC METABOLIC [id number] 04:30:00* Test Item Value Reference Range Interpretation [...] NOT APPLICABLE FOR DIALYSIS PATIENTS. Specimen markedly [id number] 04:14:00* Test Item Value Reference Range Interpretation Comments PARTIAL THROMBOPLASTIN TIME (BEAKER) (test code = 760) 48.2 seconds 22.5-36.0 H PROTHROMBIN [id number] 04:13:00* Test Item Value Reference Range Interpretation [...] pat ients with mechanical heart valves.LACTIC ACID, [id number] 04:08:00* Test Item Value Reference Range Interpretation Comments LACTATE BLOOD ARTERIAL (2) (BEAKER) (test code = 2874) 0.9 mmol/L 0.5-2.2 Specimen markedly ictericBLOOD GAS, [id number] 03:51:00* Test Item Value Reference Range Interpretation [...] (test code = 1819) 40.0 % CALCIUM, [id number] 03:49:00* Test Item Value Reference Range Interpretation Comments CALCIUM IONIZED (BEAKER) (test code = 698) 1.13 mmol/L 1.12-1.27 PH, BLOOD (BEAKER) (test code = 1810) 7.52 Check serum Ionized Calcium level after 4 hours after IV Calcium replacement. POCT-GLUCOSE [id number] 02:50:00* Test Item Value Reference Range Interpretation Comments POC-GLUCOSE METER (BEAKER) (test code = 1538) 132 mg/dL 70-110 H TESTED AT [address] [address] POCT-GLUCOSE [id number] 01:18:00* Test Item Value Reference Range Interpretation Comments POC-GLUCOSE METER (BEAKER) (test code = 1538) 137 mg/dL 70-110 H TESTED AT [address] [address] POCT-GLUCOSE [id number] 00:07:00* Test Item Value Reference Range Interpretation Comments POC-GLUCOSE METER (BEAKER) (test code = 1538) 131 mg/dL 70-110 H TESTED AT [address] [address] BLOOD GAS, [id number] 22:54:00* Test Item Value Reference Range Interpretation [...] (test code = 1819) 40.0 % POCT-GLUCOSE [id number] 22:51:00* Test Item Value Reference Range Interpretation Comments POC-GLUCOSE METER (BEAKER) (test code = 1538) 167 mg/dL 70-110 H TESTED AT [address] [address] [id number] 22:08:00* Test Item Value Reference Range Interpretation Comments POTASSIUM (BEAKER) (test code = 379) 3.9 meq/L 3.5-5.1 PRN - repeat potassium levels every 1 hour until glucose level is less than 450 mg/[id number] 22:08:00* Test Item Value Reference Range Interpretation Comments MAGNESIUM (BEAKER) (test code = 627) 2.3 mg/dL 1.6-2.6 PRN - repeat potassium levels every 1 hour until glucose level is less than 450 mg/dLPOCT-GLUCOSE [id number] 22:00:00* Test Item Value Reference Range Interpretation Comments POC-GLUCOSE METER (BEAKER) (test code = 1538) 126 mg/dL 70-110 H TESTED AT [address] [address] HEMOGLOBIN AND [id number] 21:56:00* Test Item Value Reference Range Interpretation Comments HEMOGLOBIN (BEAKER) (test code = 410) 8.4 GM/DL 13.7-17.5 L HEMATOCRIT (BEAKER) (test code = 411) 26.0 % 40.1-51.0 L CALCIUM, [id number] 21:53:00* Test Item Value Reference Range Interpretation Comments CALCIUM IONIZED (BEAKER) (test code = 698) 1.10 mmol/L 1.12-1.27 L PH, BLOOD (BEAKER) (test code = 1810) 7.50 Check serum Ionized Calcium level after 4 hours after IV Calcium replacement. POCT-GLUCOSE [id number] 20:41:00* Test Item Value Reference Range Interpretation Comments POC-GLUCOSE METER (BEAKER) (test code = 1538) 90 mg/dL 70-110 TESTED AT [address] [address] BLOOD GAS, [id number] 18:42:00* Test Item Value Reference Range Interpretation [...] (test code = 1819) 50.0 % POCT-GLUCOSE [id number] 17:49:00* Test Item Value Reference Range Interpretation Comments POC-GLUCOSE METER (BEAKER) (test code = 1538) 125 mg/dL 70-[address] [facility] [address] [facility] [address] BASIC METABOLIC [id number] 17:46:00* Test Item Value Reference Range Interpretation [...] FOR DIALYSIS PATIENTS. Specimen markedly ictericBLOOD GAS, [id number] 17:35:00* Test Item Value Reference Range Interpretation [...] (test code = 1819) 50.0 % POCT-GLUCOSE [id number] 15:27:00* Test Item Value Reference Range Interpretation Comments POC-GLUCOSE METER (BEAKER) (test code = 1538) 138 mg/dL 70-[address] [facility] [address] [facility] [place] [address] [id number] 13:59:00* Test Item Value Reference Range Interpretation Comments MAGNESIUM (BEAKER) (test code = 627) 2.1 mg/dL 1.6-2.6 BASIC METABOLIC [id number] 13:59:00* Test Item Value Reference Range Interpretation [...] FOR DIALYSIS PATIENTS. Specimen markedly ictericBLOOD GAS, [id number] 13:40:00* Test Item Value Reference Range Interpretation [...] code = 1819) 50.0 % HEMOGLOBIN AND [id number] 13:40:00* Test Item Value Reference Range Interpretation Comments HEMOGLOBIN (BEAKER) (test code = 410) 7.4 GM/DL 13.7-17.5 L HEMATOCRIT (BEAKER) (test code = 411) 23.5 % 40.1-51.0 L Please collect after PRBCs doneRAD, CHEST, 1 VIEW, NON [id number] 11:32:00 Reason for exam:->Pulmonary edema evaluationShould this [...] MDReport Verified Date/Time: 06/15/2018 11:32:52 Reading Location: [address] Consult Reading Room -GLUCOSE [id number] 10:50:00* Test Item Value Reference Range Interpretation Comments POC-GLUCOSE METER (BEAKER) (test code = 1538) 107 mg/dL 70-110 TESTED AT [address] [address] CBC W/PLT COUNT & AUTO [id number] 09:04:00* Test Item Value Reference Range Interpretation [...] quate Received comment: User comments: Slide comments: [id number] 08:43:00* Test Item Value Reference Range Interpretation Comments POTASSIUM (BEAKER) (test code = 379) 3.9 meq/L 3.5-5.1 PRN - repeat glucose levels every 1 hour or as specified by insulin titration or ders until glucose level is less than 450 mg/dLCheck Serum Potassium level 2 roxy rs after oral potassium replacement completed or 30 min after intravenous potass ium replacement.[id number] 08:43:00* Test Item Value Reference Range Interpretation Comments GLUCOSE RANDOM (BEAKER) (test code = 652) 123 mg/dL 70-105 H PRN - repeat glucose levels every 1 hour or as specified by insulin titration or ders until glucose level is less than 450 mg/dLCheck Serum Potassium level 2 roxy rs after oral potassium replacement completed or 30 min after intravenous potass ium replacement.HEMOGLOBIN AND [id number] 07:05:00* Test Item Value Reference Range Interpretation Comments HEMOGLOBIN (BEAKER) (test code = 410) 6.6 GM/DL 13.7-17.5 L HEMATOCRIT (BEAKER) (test code = 411) 21.3 % 40.1-51.0 L POCT-GLUCOSE [id number] 06:52:00* Test Item Value Reference Range Interpretation Comments POC-GLUCOSE METER (BEAKER) (test code = 1538) 117 mg/dL 70-[address] [facility] [address] [facility] [place] [address] CALCIUM, [id number] 04:47:00* Test Item Value Reference Range Interpretation Comments CALCIUM IONIZED (BEAKER) (test code = 698) 1.10 mmol/L 1.12-1.27 L PH, BLOOD (BEAKER) (test code = 1810) 7.48 Check serum Ionized Calcium level after 4 hours after IV Calcium replacement. BLOOD GAS, [id number] 04:47:00* Test Item Value Reference Range Interpretation [...] code = 1819) 50.0 % BASIC METABOLIC [id number] 04:27:00* Test Item Value Reference Range Interpretation [...] NOT APPLICABLE FOR DIALYSIS PATIENTS. Specimen markedly [id number] 04:15:00* Test Item Value Reference Range Interpretation Comments MAGNESIUM (BEAKER) (test code = 627) 2.4 mg/dL 1.6-2.6 HEPATIC FUNCTION [id number] 04:15:00* Test Item Value Reference Range Interpretation [...] 134 U/L 6-55 H Specimen markedly ictericPOCT-GLUCOSE [id number] 04:02:00* Test Item Value Reference Range Interpretation Comments POC-GLUCOSE METER (BEAKER) (test code = 1538) 107 mg/dL 70-[address] [facility] [address] [facility] [address] [id number] 03:59:00* Test Item Value Reference Range Interpretation Comments PARTIAL THROMBOPLASTIN TIME (BEAKER) (test code = 760) 54.6 seconds 22.5-36.0 H PROTHROMBIN [id number] 03:58:00* Test Item Value Reference Range Interpretation [...] pat ients with mechanical heart valves.LACTIC ACID, [id number] 03:56:00* Test Item Value Reference Range Interpretation Comments LACTATE BLOOD ARTERIAL (2) (BEAKER) (test code = 2874) 1.1 mmol/L 0.5-2.2 Specimen markedly ictericPOCT-GLUCOSE [id number] 03:10:00* Test Item Value Reference Range Interpretation Comments POC-GLUCOSE METER (BEAKER) (test code = 1538) 118 mg/dL 70-110 H TESTED AT [address] [address] POCT-GLUCOSE [id number] 02:11:00* Test Item Value Reference Range Interpretation Comments POC-GLUCOSE METER (BEAKER) (test code = 1538) 112 mg/dL 70-110 H TESTED AT [address] [address] POCT-GLUCOSE [id number] 01:28:00* Test Item Value Reference Range Interpretation Comments POC-GLUCOSE METER (BEAKER) (test code = 1538) 126 mg/dL 70-110 H TESTED AT [address] [address] BASIC METABOLIC [id number] 00:27:00* Test Item Value Reference Range Interpretation [...] APPLICABLE FOR DIALYSIS PATIENTS. Specimen markedly ictericPOCT-GLUCOSE [id number] 00:22:00* Test Item Value Reference Range Interpretation Comments POC-GLUCOSE METER (BEAKER) (test code = 1538) 155 mg/dL 70-110 H TESTED AT [place] [id number] [facility] [address] POCT-GLUCOSE [id number] 23:18:00* Test Item Value Reference Range Interpretation Comments POC-GLUCOSE METER (BEAKER) (test code = 1538) 168 mg/dL 70-110 H TESTED AT [address] [address] POCT-GLUCOSE [id number] 22:13:00* Test Item Value Reference Range Interpretation Comments POC-GLUCOSE METER (BEAKER) (test code = 1538) 171 mg/dL 70-110 H TESTED AT [address] [address] [id number] 21:19:00* Test Item Value Reference Range Interpretation Comments MAGNESIUM (BEAKER) (test code = 627) 2.5 mg/dL 1.6-2.6 POCT-GLUCOSE [id number] 21:14:00* Test Item Value Reference Range Interpretation Comments POC-GLUCOSE METER (BEAKER) (test code = 1538) 166 mg/dL 70-110 H TESTED AT [address] [address] CALCIUM, [id number] 21:03:00* Test Item Value Reference Range Interpretation Comments CALCIUM IONIZED (BEAKER) (test code = 698) 1.07 mmol/L 1.12-1.27 L PH, BLOOD (BEAKER) (test code = 1810) 7.52 Check serum Ionized Calcium level after 4 hours after IV Calcium replacement. POCT-GLUCOSE [id number] 20:12:00* Test Item Value Reference Range Interpretation Comments POC-GLUCOSE METER (BEAKER) (test code = 1538) 172 mg/dL 70-110 H TESTED AT [place] [id number] [facility] [address] POCT-GLUCOSE [id number] 18:57:00* Test Item Value Reference Range Interpretation Comments POC-GLUCOSE METER (BEAKER) (test code = 1538) 158 mg/dL 70-[address] [facility] [address] [facility] [address] POCT-GLUCOSE [id number] 18:57:00* Test Item Value Reference Range Interpretation Comments POC-GLUCOSE METER (BEAKER) (test code = 1538) 172 mg/dL 70-110 H TESTED AT [place] [id number] [facility] [address] POCT-GLUCOSE [id number] 18:57:00* Test Item Value Reference Range Interpretation Comments POC-GLUCOSE METER (BEAKER) (test code = 1538) 139 mg/dL 70-110 H TESTED AT [place] [address] [facility] [address] POCT-GLUCOSE [id number] 18:57:00* Test Item Value Reference Range Interpretation Comments POC-GLUCOSE METER (BEAKER) (test code = 1538) 98 mg/dL 70-110 TESTED AT [place] [address] [facility] [address] BASIC METABOLIC [id number] 18:53:00* Test Item Value Reference Range Interpretation [...] FOR DIALYSIS PATIENTS. Specimen markedly ictericEBV VIRAL [id number] 17:58:00* Test Item Value Reference Range Interpretation [...] (2) real-time PCR amplification and detection with YMLS-5-bbxhxl ic primers and probes. A well-conserved region [...] its performance characteristic s determined by the [facility] Pathology Department, Section of [place] reeder Pathology. It has not been cleared or approved by the U.S. Food and Zach g Administration (FDA), since FDA approval is not required for clinical use of t he test. Validation was done as required by The Clinical Laboratory Improvement Amendments of 1988.POCT-GLUCOSE [id number] 14:21:00* Test Item Value Reference Range Interpretation Comments POC-GLUCOSE METER (BEAKER) (test code = 1538) 102 mg/dL 70-110 TESTED AT [place] [address] [facility] [address] POCT-GLUCOSE [id number] 12:29:00* Test Item Value Reference Range Interpretation Comments POC-GLUCOSE METER (BEAKER) (test code = 1538) 101 mg/dL 70-110 TESTED AT [address] [address] BASIC METABOLIC [id number] 11:58:00* Test Item Value Reference Range Interpretation [...] NOT APPLICABLE FOR DIALYSIS PATIENTS. Specimen markedly [id number] 11:55:00* Test Item Value Reference Range Interpretation Comments MAGNESIUM (BEAKER) (test code = 627) 2.8 mg/dL 1.6-2.6 H POCT-GLUCOSE [id number] 11:53:00* Test Item Value Reference Range Interpretation Comments POC-GLUCOSE METER (BEAKER) (test code = 1538) 134 mg/dL 70-110 H TESTED AT [address] [address] POCT-GLUCOSE [id number] 11:53:00* Test Item Value Reference Range Interpretation Comments POC-GLUCOSE METER (BEAKER) (test code = 1538) 134 mg/dL 70-110 H TESTED AT [address] [address] POCT-GLUCOSE [id number] 11:53:00* Test Item Value Reference Range Interpretation Comments POC-GLUCOSE METER (BEAKER) (test code = 1538) 161 mg/dL 70-110 H TESTED AT [address] [address] BLOOD GAS, [id number] 11:41:00* Test Item Value Reference Range Interpretation [...] 50.0 % CBC W/PLT COUNT & AUTO [id number] 10:02:00* Test Item Value Reference Range Interpretation [...] Received comment: User comments: Slide comments: POCT-GLUCOSE [id number] 09:09:00* Test Item Value Reference Range Interpretation Comments POC-GLUCOSE METER (BEAKER) (test code = 1538) 159 mg/dL 70-[address] [facility] [address] [facility] [address] POCT-GLUCOSE [id number] 08:09:00* Test Item Value Reference Range Interpretation Comments POC-GLUCOSE METER (BEAKER) (test code = 1538) 178 mg/dL 70-[address] [facility] [address] [facility] [address] RAD, CHEST, 1 VIEW, NON [id number] 07:32:00Reason for exam:->respiratory insufficiencyShould this be performed [...] MDReport Verified Date/Time: 06/14/2018 07:32:08 Reading Location: [facility] Radiology Reading Room [id number] 06:43:00* Test Item Value Reference Range Interpretation Comments PARTIAL THROMBOPLASTIN TIME (BEAKER) (test code = 760) 45.8 seconds 22.5-36.0 H PROTHROMBIN [id number] 06:42:00* Test Item Value Reference Range Interpretation [...] pat ients with mechanical heart valves.BASIC METABOLIC [id number] 06:41:00* Test Item Value Reference Range Interpretation [...] APPLICABLE FOR DIALYSIS PATIENTS. Specimen markedly ictericPOCT-GLUCOSE [id number] 06:32:00* Test Item Value Reference Range Interpretation Comments POC-GLUCOSE METER (BEAKER) (test code = 1538) 175 mg/dL 70-110 H TESTED AT [address] [address] POCT-GLUCOSE [id number] 05:43:00* Test Item Value Reference Range Interpretation Comments POC-GLUCOSE METER (BEAKER) (test code = 1538) 149 mg/dL 70-110 H TESTED AT [address] [address] POCT-GLUCOSE [id number] 05:43:00* Test Item Value Reference Range Interpretation Comments POC-GLUCOSE METER (BEAKER) (test code = 1538) 140 mg/dL 70-110 H TESTED AT [address] [address] BASIC METABOLIC [id number] 04:55:00* Test Item Value Reference Range Interpretation [...] FOR DIALYSIS PATIENTS. Specimen markedly ictericBLOOD GAS, [id number] 04:37:00* Test Item Value Reference Range Interpretation [...] code = 1819) 60.0 % BASIC METABOLIC [id number] 04:35:00* Test Item Value Reference Range Interpretation [...] NOT APPLICABLE FOR DIALYSIS PATIENTS. Specimen markedly [id number] 04:25:00* Test Item Value Reference Range Interpretation Comments MAGNESIUM (BEAKER) (test code = 627) 2.4 mg/dL 1.6-2.6 HEPATIC FUNCTION [id number] 04:25:00* Test Item Value Reference Range Interpretation [...] 347) 119 U/L 6-55 H Specimen markedly [id number] 04:25:00* Test Item Value Reference Range Interpretation Comments AMYLASE (BEAKER) (test code = 349) 80 U/L 25-125 Specimen markedly [id number] 04:25:00* Test Item Value Reference Range Interpretation Comments LIPASE (BEAKER) (test code = 749) 222 U/L 8-78 H Specimen markedly ictericLACTIC ACID, [id number] 04:17:00* Test Item Value Reference Range Interpretation Comments LACTATE BLOOD ARTERIAL (2) (BEAKER) (test code = 2874) 0.8 mmol/L 0.5-2.2 Specimen markedly ictericPOCT-GLUCOSE [id number] 02:31:00* Test Item Value Reference Range Interpretation Comments POC-GLUCOSE METER (BEAKER) (test code = 1538) 98 mg/dL 70-[address] [facility] [address] [facility] [address] POCT-GLUCOSE [id number] 01:45:00* Test Item Value Reference Range Interpretation Comments POC-GLUCOSE METER (BEAKER) (test code = 1538) 120 mg/dL 70-[address] [facility] [address] [facility] [address] POCT-GLUCOSE [id number] 01:45:00* Test Item Value Reference Range Interpretation Comments POC-GLUCOSE METER (BEAKER) (test code = 1538) 171 mg/dL 70-[address] [facility] [address] [facility] [address] CT, CHEST, WITHOUT [id number] 00:56:00FINAL REPORT EXAM: CT of the chest, [...] free air or fluid collection. Signed: Nicolás Ceballosort Verified Date/Time: 06/14/2018 00:56:49 Reading Location: [address] Body Reading Room Amada ctronically signed by: NICOLÁS CEBALLOS MD on 06/14/2018 12:[address], [id number] 00:56:00With PO contrastFINAL REPORT EXAM: CT of [...] MDReport Verified Date/Time: 06/14/2018 00:56:49 Reading Location: [facility] C013Y CT Body Reading Room Amada ctronically signed by: NICOLÁS CEBALLOS MD on 06/14/2018 12:56 AM POCT- GLUCOSE [id number] 23:12:00* Test Item Value Reference Range Interpretation Comments POC-GLUCOSE METER (BEAKER) (test code = 1538) 200 mg/dL 70-[address] [facility] [address] [facility] [address] POCT-GLUCOSE [id number] 23:12:00* Test Item Value Reference Range Interpretation Comments POC-GLUCOSE METER (BEAKER) (test code = 1538) 132 mg/dL 70-[address] [facility] [address] [facility] [address] [id number] 21:11:00* Test Item Value Reference Range Interpretation Comments MAGNESIUM (BEAKER) (test code = 627) 2.5 mg/dL 1.6-2.6 POCT-GLUCOSE [id number] 20:48:00* Test Item Value Reference Range Interpretation Comments POC-GLUCOSE METER (BEAKER) (test code = 1538) 103 mg/dL 70-110 TESTED AT [address] [address] POCT-GLUCOSE [id number] 20:48:00* Test Item Value Reference Range Interpretation Comments POC-GLUCOSE METER (BEAKER) (test code = 1538) 98 mg/dL 70-110 TESTED AT [address] [address] POCT-GLUCOSE [id number] 18:14:00* Test Item Value Reference Range Interpretation Comments POC-GLUCOSE METER (BEAKER) (test code = 1538) 108 mg/dL 70-110 TESTED AT [address] [address] BASIC METABOLIC [id number] 18:09:00* Test Item Value Reference Range Interpretation [...] FOR DIALYSIS PATIENTS. Specimen markedly ictericBLOOD GAS, [id number] 16:57:00* Test Item Value Reference Range Interpretation [...] (test code = 1819) 40.0 % POCT-GLUCOSE [id number] 16:51:00* Test Item Value Reference Range Interpretation Comments POC-GLUCOSE METER (BEAKER) (test code = 1538) 107 mg/dL 70-[address] [facility] [address] [facility] [address] CMV PCR, [id number] 16:28:00* Test Item Value Reference Range Interpretation [...] its performance characteristics determined by [facility] Pathology Department, Section of Molecular Patholog y. It has not been cleared or approved by the U.S. Food and Drug Administration (FDA), since FDA approval is not required for clinical use of the test. Validati on was done as required by The Clinical Laboratory Improvement Amendments of 198 8.POCT-GLUCOSE [id number] 15:09:00* Test Item Value Reference Range Interpretation Comments POC-GLUCOSE METER (BEAKER) (test code = 1538) 119 mg/dL 70-[address] [facility] [address] [facility] [address] POCT-GLUCOSE [id number] 14:43:00* Test Item Value Reference Range Interpretation Comments POC-GLUCOSE METER (BEAKER) (test code = 1538) 129 mg/dL 70-[address] [facility] [address] [facility] [address] BASIC METABOLIC [id number] 13:25:00* Test Item Value Reference Range Interpretation [...] APPLICABLE FOR DIALYSIS PATIENTS. Specimen markedly ictericPOCT-GLUCOSE [id number] 13:23:00* Test Item Value Reference Range Interpretation Comments POC-GLUCOSE METER (BEAKER) (test code = 1538) 172 mg/dL 70-110 H TESTED AT [address] [address] [id number] 13:14:00* Test Item Value Reference Range Interpretation Comments MAGNESIUM (BEAKER) (test code = 627) 2.6 mg/dL 1.6-2.6 Specimen slightly hemolyzed POCT-GLUCOSE [id number] 12:04:00* Test Item Value Reference Range Interpretation Comments POC-GLUCOSE METER (BEAKER) (test code = 1538) 205 mg/dL 70-110 H TESTED AT [address] [address] POCT-GLUCOSE [id number] 11:10:00* Test Item Value Reference Range Interpretation Comments POC-GLUCOSE METER (BEAKER) (test code = 1538) 182 mg/dL 70-110 H TESTED AT [address] [address] BLOOD GAS, [id number] 10:41:00* Test Item Value Reference Range Interpretation [...] (test code = 1819) 100.0 % POCT-GLUCOSE [id number] 09:50:00* Test Item Value Reference Range Interpretation Comments POC-GLUCOSE METER (BEAKER) (test code = 1538) 138 mg/dL 70-110 H TESTED AT [address] [address] POCT-GLUCOSE [id number] 08:44:00* Test Item Value Reference Range Interpretation Comments POC-GLUCOSE METER (BEAKER) (test code = 1538) 98 mg/dL 70-110 TESTED AT [address] [address] BLOOD GAS, [id number] 06:47:00* Test Item Value Reference Range Interpretation [...] (test code = 1819) 80.0 % POCT-GLUCOSE [id number] 06:41:00* Test Item Value Reference Range Interpretation Comments POC-GLUCOSE METER (BEAKER) (test code = 1538) 123 mg/dL 70-110 H TESTED AT [address] [address] POCT-GLUCOSE [id number] 06:41:00* Test Item Value Reference Range Interpretation Comments POC-GLUCOSE METER (BEAKER) (test code = 1538) 121 mg/dL 70-110 H TESTED AT [address] [address] BASIC METABOLIC [id number] 06:25:00* Test Item Value Reference Range Interpretation [...] FOR DIALYSIS PATIENTS. Specimen markedly ictericBASIC METABOLIC [id number] 03:47:00* Test Item Value Reference Range Interpretation [...] NOT APPLICABLE FOR DIALYSIS PATIENTS. Specimen markedly [id number] 03:41:00* Test Item Value Reference Range Interpretation Comments MAGNESIUM (BEAKER) (test code = 627) 2.7 mg/dL 1.6-2.6 H HEPATIC FUNCTION [id number] 03:41:00* Test Item Value Reference Range Interpretation [...] 347) 104 U/L 6-55 H Specimen markedly [id number] 03:39:00* Test Item Value Reference Range Interpretation Comments PARTIAL THROMBOPLASTIN TIME (BEAKER) (test code = 760) 48.3 seconds 22.5-36.0 H PROTHROMBIN [id number] 03:38:00* Test Item Value Reference Range Interpretation [...] pat ients with mechanical heart valves.LACTIC ACID, [id number] 03:31:00* Test Item Value Reference Range Interpretation Comments LACTATE BLOOD ARTERIAL (2) (BEAKER) (test code = 2874) 0.8 mmol/L 0.5-2.2 Specimen markedly ictericCBC W/PLT COUNT & AUTO [id number] 03:24:00 * Test Item Value Reference Range [...] = 2801) 3 % 0-1 H POCT-GLUCOSE [id number] 03:06:00* Test Item Value Reference Range Interpretation Comments POC-GLUCOSE METER (BEAKER) (test code = 1538) 155 mg/dL 70-[address] [facility] [address] [facility] [address] BASIC METABOLIC [id number] 02:44:00* Test Item Value Reference Range Interpretation [...] FOR DIALYSIS PATIENTS. Specimen markedly ictericBLOOD GAS, [id number] 02:08:00* Test Item Value Reference Range Interpretation [...] 100.0 % RAD, CHEST, 1 VIEW, NON [id number] 01:40:00Reason for exam:->decreased lung sounds; possible aspirationShould this be performed at the bedside?->YesFINAL REPORT CLINICAL INDICATION: Decreased lung sounds, concern for aspiration Comparison: 06/12/2018 The cardiomediastinal contours are stable. The lung volumes remain low. Central pulmonary vascular congestion and bilateral parenchymal opacities are unchanged. There is no pneumothorax. Support lines are stable. Signed: Katherine Reich MDReport Verified Date/Time: 06/14/19 01:40:10 Reading Location: [address] Reading Room [facility] signed by: KATHERINE REICH M.D. on 06/13/2018 01:40 AM RAD, ABDOMEN/KUB, 1 VIEW [id number] 01:37:00Reason for exam:->distended abdomenShould this be performed [...] MDReport Verified Date/Time: 06/13/2018 01:37:29 Reading Location: [address] Reading Room -GLUCOSE [id number] 00:36:00* Test Item Value Reference Range Interpretation Comments POC-GLUCOSE METER (BEAKER) (test code = 1538) 192 mg/dL 70-110 H TESTED AT [address] [address] OCCULT BLOOD, [id number] 22:31:00* Test Item Value Reference Range Interpretation Comments FECAL OCCULT BLOOD (BEAKER) (test code = 618) Positive Negative A [id number] 21:12:00* Test Item Value Reference Range Interpretation Comments MAGNESIUM (BEAKER) (test code = 627) 2.4 mg/dL 1.6-2.6 POCT-GLUCOSE [id number] 20:34:00* Test Item Value Reference Range Interpretation Comments POC-GLUCOSE METER (BEAKER) (test code = 1538) 160 mg/dL 70-110 H TESTED AT [place] [address] [facility] [address] BASIC METABOLIC [id number] 18:27:00* Test Item Value Reference Range Interpretation [...] APPLICABLE FOR DIALYSIS PATIENTS. Specimen markedly ictericPOCT-GLUCOSE [id number] 17:35:00* Test Item Value Reference Range Interpretation Comments POC-GLUCOSE METER (BEAKER) (test code = 1538) 136 mg/dL 70-110 H TESTED AT [address] [address] BLOOD GAS, [id number] 16:12:00* Test Item Value Reference Range Interpretation [...] (test code = 1819) 40.0 % POCT-GLUCOSE [id number] 14:51:00* Test Item Value Reference Range Interpretation Comments POC-GLUCOSE METER (BEAKER) (test code = 1538) 137 mg/dL 70-[address] [facility] [address] [facility] [address] POCT-GLUCOSE [id number] 13:23:00* Test Item Value Reference Range Interpretation Comments POC-GLUCOSE METER (BEAKER) (test code = 1538) 132 mg/dL 70-[address] [facility] [address] [facility] [address] BLOOD GAS, [id number] 13:13:00* Test Item Value Reference Range Interpretation [...] code = 1819) 40.0 % BASIC METABOLIC [id number] 13:08:00* Test Item Value Reference Range Interpretation [...] NOT APPLICABLE FOR DIALYSIS PATIENTS. Specimen markedly [id number] 13:04:00* Test Item Value Reference Range Interpretation Comments MAGNESIUM (BEAKER) (test code = 627) 2.6 mg/dL 1.6-2.6 POCT-GLUCOSE [id number] 12:17:00* Test Item Value Reference Range Interpretation Comments POC-GLUCOSE METER (BEAKER) (test code = 1538) 123 mg/dL 70-110 H TESTED AT [address] [address] POCT-GLUCOSE [id number] 11:33:00* Test Item Value Reference Range Interpretation Comments POC-GLUCOSE METER (BEAKER) (test code = 1538) 133 mg/dL 70-110 H TESTED AT [address] [address] POCT-GLUCOSE [id number] 10:10:00* Test Item Value Reference Range Interpretation Comments POC-GLUCOSE METER (BEAKER) (test code = 1538) 151 mg/dL 70-110 H TESTED AT [address] [address] POCT-GLUCOSE [id number] 09:07:00* Test Item Value Reference Range Interpretation Comments POC-GLUCOSE METER (BEAKER) (test code = 1538) 155 mg/dL 70-110 H TESTED AT [address] [address] POCT-GLUCOSE [id number] 08:05:00* Test Item Value Reference Range Interpretation Comments POC-GLUCOSE METER (BEAKER) (test code = 1538) 143 mg/dL 70-110 H TESTED AT [address] [address] CBC W/PLT COUNT & AUTO [id number] 07:31:00* Test Item Value Reference Range Interpretation [...] LATION PRESENT RAD, CHEST, 1 VIEW, NON [id number] 06:50:00Reason for exam:-> respiratory insufficiencyShould this be [...] MDReport Verified Date/Time: 06/12/2018 06:50:17 Reading Location: [address] Neuro Reading Room Electronically signed by: MD rafaela [place] 06/12/2018 06:50 AM POCT-GLUCOSE [id number] 06:23:00* Test Item Value Reference Range Interpretation Comments POC-GLUCOSE METER (BEAKER) (test code = 1538) 161 mg/dL 70-110 H TESTED AT [address] [address] POCT-GLUCOSE [id number] 05:09:00* Test Item Value Reference Range Interpretation Comments POC-GLUCOSE METER (BEAKER) (test code = 1538) 177 mg/dL 70-110 H TESTED AT [address] [address] POCT-GLUCOSE [id number] 05:09:00* Test Item Value Reference Range Interpretation Comments POC-GLUCOSE METER (BEAKER) (test code = 1538) 188 mg/dL 70-110 H TESTED AT [address] [address] BLOOD GAS, [id number] 04:41:00* Test Item Value Reference Range Interpretation [...] (test code = 1819) 50.0 % CALCIUM, [id number] 04:41:00* Test Item Value Reference Range Interpretation Comments CALCIUM IONIZED (BEAKER) (test code = 698) 1.08 mmol/L 1.12-1.27 L PH, BLOOD (BEAKER) (test code = 1810) 7.44 BASIC METABOLIC [id number] 04:24:00* Test Item Value Reference Range Interpretation [...] NOT APPLICABLE FOR DIALYSIS PATIENTS. Specimen markedly [id number] 04:23:00* Test Item Value Reference Range Interpretation Comments PHOSPHORUS (BEAKER) (test code = 604) 5.0 mg/dL 2.3-4.7 H [id number] 04:23:00* Test Item Value Reference Range Interpretation Comments MAGNESIUM (BEAKER) (test code = 627) 2.8 mg/dL 1.6-2.6 H HEPATIC FUNCTION [id number] 04:23:00* Test Item Value Reference Range Interpretation [...] 347) 96 U/L 6-55 H Specimen markedly [id number] 04:22:00* Test Item Value Reference Range Interpretation Comments PARTIAL THROMBOPLASTIN TIME (BEAKER) (test code = 760) 54.7 seconds 22.5-36.0 H PROTHROMBIN [id number] 04:21:00* Test Item Value Reference Range Interpretation [...] pat ients with mechanical heart valves.LACTIC ACID, [id number] 04:15:00* Test Item Value Reference Range Interpretation Comments LACTATE BLOOD ARTERIAL (2) (BEAKER) (test code = 2874) 0.9 mmol/L 0.5-2.2 Specimen slightly hemolyzed Specimen markedly [id number] 02:06:00* Test Item Value Reference Range Interpretation Comments POTASSIUM (BEAKER) (test code = 379) 3.5 meq/L 3.5-5.1 [id number] 02:06:00* Test Item Value Reference Range Interpretation Comments GLUCOSE RANDOM (BEAKER) (test code = 652) 225 mg/dL 70-105 H BASIC METABOLIC [id number] 00:30:00* Test Item Value Reference Range Interpretation [...] APPLICABLE FOR DIALYSIS PATIENTS. Specimen markedly ictericPOCT-GLUCOSE [id number] 00:28:00* Test Item Value Reference Range Interpretation Comments POC-GLUCOSE METER (BEAKER) (test code = 1538) 245 mg/dL 70-[address] [facility] [address] [facility] [address] BLOOD GAS, [id number] 22:23:00* Test Item Value Reference Range Interpretation [...] code = 1819) 50.0 % BASIC METABOLIC [id number] 20:15:00* Test Item Value Reference Range Interpretation [...] NOT APPLICABLE FOR DIALYSIS PATIENTS. Specimen markedly [id number] 20:07:00* Test Item Value Reference Range Interpretation Comments MAGNESIUM (BEAKER) (test code = 627) 2.6 mg/dL 1.6-2.6 RAD, CHEST, 1 VIEW, NON [id number] 19:02:00Reason for exam:->new right IJ lineShould this [...] MDReport Verified Date/Time: 06/11/2018 19:02:45 Reading Location: [address] Consult Reading Room C METABOLIC [id number] 15:15:00* Test Item Value Reference Range Interpretation [...] NOT APPLICABLE FOR DIALYSIS PATIENTS. Specimen markedly [id number] 15:09:00* Test Item Value Reference Range Interpretation Comments MAGNESIUM (BEAKER) (test code = 627) 2.6 mg/dL 1.6-2.6 POCT-GLUCOSE [id number] 13:44:00* Test Item Value Reference Range Interpretation Comments POC-GLUCOSE METER (BEAKER) (test code = 1538) 226 mg/dL 70-[address] [facility] [address] [facility] [address] SPIN/CONCENTRATION [id number] 12:22:00* Test Item Value Reference Range Interpretation Comments CONCENTRATION CHARGED (BEAKER) (test code = 2657) Done RAD, CHEST, 1 VIEW, NON [id number] 07:49:00Reason for exam:->pulmonary edemaShould this be performed [...] Rodriguez Verified Date/Time: 06/11 07:49:11 Reading Location: [facility] Radiology Reading Room Amada ctronically signed by: GELA RODRIGUEZ M.D. on 06/11/2018 07:49 AM LACTIC ACID, [id number] 04:44:00* Test Item Value Reference Range Interpretation Comments LACTATE BLOOD ARTERIAL (2) (BEAKER) (test code = 2874) 0.9 mmol/L 0.5-2.2 Specimen markedly ictericBASIC METABOLIC [id number] 04:39:00* Test Item Value Reference Range Interpretation [...] NOT APPLICABLE FOR DIALYSIS PATIENTS. Specimen markedly [id number] 04:38:00* Test Item Value Reference Range Interpretation Comments PHOSPHORUS (BEAKER) (test code = 604) 6.5 mg/dL 2.3-4.7 H [id number] 04:38:00* Test Item Value Reference Range Interpretation Comments MAGNESIUM (BEAKER) (test code = 627) 2.7 mg/dL 1.6-2.6 H HEPATIC FUNCTION [id number] 04:38:00* Test Item Value Reference Range Interpretation [...] code = 380) 116 U/L 29-20 0 [id number] 04:33:00* Test Item Value Reference Range Interpretation Comments PARTIAL THROMBOPLASTIN TIME (BEAKER) (test code = 760) 50.5 seconds 22.5-36.0 H PROTHROMBIN [id number] 04:32:00* Test Item Value Reference Range Interpretation [...] mechanical heart valves.CBC W/PLT COUNT & AUTO [id number] 04:29:00* Test Item Value Reference Range Interpretation [...] = 2801) 5 % 0-1 H CALCIUM, [id number] 04:29:00* Test Item Value Reference Range Interpretation Comments CALCIUM IONIZED (BEAKER) (test code = 698) 1.05 mmol/L 1.12-1.27 L PH, BLOOD (BEAKER) (test code = 1810) 7.42 BLOOD GAS, [id number] 04:25:00* Test Item Value Reference Range Interpretation [...] code = 1819) 60.0 % BASIC METABOLIC [id number] 22:15:00* Test Item Value Reference Range Interpretation [...] GFR IS NOT APPLICABLE FOR DIALYSIS PATIENTS. [id number] 21:07:00* Test Item Value Reference Range Interpretation Comments MAGNESIUM (BEAKER) (test code = 627) 2.8 mg/dL 1.6-2.6 H Specimen slightly hemolyzed BASIC METABOLIC [id number] 18:32:00* Test Item Value Reference Range Interpretation [...] FOR DIALYSIS PATIENTS. Specimen markedly ictericBASIC METABOLIC [id number] 12:06:00* Test Item Value Reference Range Interpretation [...] NOT APPLICABLE FOR DIALYSIS PATIENTS. Specimen markedly [id number] 11:59:00* Test Item Value Reference Range Interpretation Comments MAGNESIUM (BEAKER) (test code = 627) 2.4 mg/dL 1.6-2.6 POCT-GLUCOSE [id number] 11:58:00* Test Item Value Reference Range Interpretation Comments POC-GLUCOSE METER (BEAKER) (test code = 1538) 143 mg/dL 70-[address] [facility] [address] [facility] [address] BRONCHIAL CULTURE + GRAM [id number] 09:24:00* Test Item Value Reference Range Interpretation Comments CULTURE (BEAKER) (test code = 1095) No growth GRAM STAIN RESULT (BEAKER) (test code = 1123) 1+ WBCs GRAM STAIN RESULT (BEAKER) (test code = 09741) No organisms seen SPUTUM CULTURE + GRAM [id number] 09:24:00* Test Item Value Reference Range Interpretation Comments CULTURE (BEAKER) (test code = 1095) No growth GRAM STAIN RESULT (BEAKER) (test code = 1123) 1+ WBCs GRAM STAIN RESULT (BEAKER) (test code = 00891) 10-15 epithelial dariel ls GRAM STAIN RESULT (BEAKER) (test code = 98581) <1+ gra m positive cocci in pairs and clusters CBC W/PLT COUNT & AUTO [id number] 08:22:00* Test Item Value Reference Range Interpretation [...] PLATELETS SEEN RAD, CHEST, 1 VIEW, NON [id number] 08:07:00Reason for exam:->pulmonary edemaShould this be performed [...] in interstitial pulmonary edema Signed: Kai Rogel Verified Date/Time: 06/10/2018 08:07:52 Reading Location: [facility] Reading Room -GLUCOSE [id number] 05:31:00* Test Item Value Reference Range Interpretation Comments POC-GLUCOSE METER (BEAKER) (test code = 1538) 124 mg/dL 70-[address] [facility] [address] [facility] [address] BASIC METABOLIC [id number] 04:24:00* Test Item Value Reference Range Interpretation [...] NOT APPLICABLE FOR DIALYSIS PATIENTS. Specimen markedly [id number] 04:16:00* Test Item Value Reference Range Interpretation Comments PARTIAL THROMBOPLASTIN TIME (BEAKER) (test code = 760) 47.0 seconds 22.5-36.0 H PROTHROMBIN [id number] 04:15:00* Test Item Value Reference Range Interpretation Comments PROTIME (BEAKER) (test code = 759) 16.9 seconds 11.7-14.7 H INR (BEAKER) (test code = 370) 1.3 <=5.9 RECOMMENDED COUMADIN/WARFARIN INR THERAPY RANGESSTANDARD DOSE: 2.0 - 3.0 Inclu herb: PROPHYLAXIS for venous thrombosis, systemic embolization; TREATMENT for giulia ous thrombosis and/or pulmonary embolus.HIGH RISK: Target INR is 2.5-3.5 for pat ients with mechanical heart valves.[id number] 04:12:00* Test Item Value Reference Range Interpretation Comments MAGNESIUM (BEAKER) (test code = 627) 2.5 mg/dL 1.6-2.6 HEPATIC FUNCTION [id number] 04:12:00* Test Item Value Reference Range Interpretation [...] U/L 6-55 H Specimen markedly ictericLACTIC ACID, [id number] 03:59:00* Test Item Value Reference Range Interpretation Comments LACTATE BLOOD ARTERIAL (2) (BEAKER) (test code = 2874) 0.9 mmol/L 0.5-2.2 Specimen markedly ictericBLOOD GAS, [id number] 03:21:00* Test Item Value Reference Range Interpretation [...] (test code = 1819) 60.0 % CALCIUM, [id number] 03:19:00* Test Item Value Reference Range Interpretation Comments CALCIUM IONIZED (BEAKER) (test code = 698) 1.12 mmol/L 1.12-1.27 PH, BLOOD (BEAKER) (test code = 1810) 7.44 Check serum Ionized Calcium level after 4 hours after IV Calcium replacement. BASIC METABOLIC [id number] 00:53:00* Test Item Value Reference Range Interpretation [...] APPLICABLE FOR DIALYSIS PATIENTS. Specimen markedly ictericPOCT-GLUCOSE [id number] 00:29:00* Test Item Value Reference Range Interpretation Comments POC-GLUCOSE METER (BEAKER) (test code = 1538) 176 mg/dL 70-[address] [facility] [address] [facility] [address] POCT-GLUCOSE [id number] 21:27:00* Test Item Value Reference Range Interpretation Comments POC-GLUCOSE METER (BEAKER) (test code = 1538) 134 mg/dL 70-[address] [facility] [address] [facility] [address] [id number] 20:56:00* Test Item Value Reference Range Interpretation Comments MAGNESIUM (BEAKER) (test code = 627) 2.2 mg/dL 1.6-2.6 CALCIUM, [id number] 20:46:00* Test Item Value Reference Range Interpretation Comments CALCIUM IONIZED (BEAKER) (test code = 698) 1.08 mmol/L 1.12-1.27 L PH, BLOOD (BEAKER) (test code = 1810) 7.44 BLOOD GAS, [id number] 20:46:00* Test Item Value Reference Range Interpretation [...] (test code = 1819) 60.0 % POCT-GLUCOSE [id number] 20:20:00* Test Item Value Reference Range Interpretation Comments POC-GLUCOSE METER (BEAKER) (test code = 1538) 142 mg/dL 70-110 H TESTED AT [address] [address] BASIC METABOLIC [id number] 18:55:00* Test Item Value Reference Range Interpretation [...] PATIENTS. Specimen markedly ictericRAD, ABDOMEN/KUB, 1 VIEW [id number] 17:56:00Reason for exam:->feeding tube placement.FINAL REPORT CLINICAL [...] MDReport Verified Date/Time: 06/09/2018 17:56:44 Reading Location: [address] Reading Room -GLUCOSE [id number] 17:49:00* Test Item Value Reference Range Interpretation Comments POC-GLUCOSE METER (BEAKER) (test code = 1538) 131 mg/dL 70-110 H TESTED AT [place] [id number] [facility] [address] POCT-GLUCOSE [id number] 16:36:00* Test Item Value Reference Range Interpretation Comments POC-GLUCOSE METER (BEAKER) (test code = 1538) 112 mg/dL 70-110 H TESTED AT [place] [id number] [facility] [address] POCT-GLUCOSE [id number] 14:37:00* Test Item Value Reference Range Interpretation Comments POC-GLUCOSE METER (BEAKER) (test code = 1538) 88 mg/dL 70-110 TESTED AT [place] [id number] [facility] [address] POCT-GLUCOSE [id number] 12:48:00* Test Item Value Reference Range Interpretation Comments POC-GLUCOSE METER (BEAKER) (test code = 1538) 104 mg/dL 70-[address] [facility] [address] [place] [address] [id number] 12:46:00* Test Item Value Reference Range Interpretation Comments MAGNESIUM (BEAKER) (test code = 627) 2.3 mg/dL 1.6-2.6 BASIC METABOLIC [id number] 12:46:00* Test Item Value Reference Range Interpretation [...] NOT APPLICABLE FOR DIALYSIS PATIENTS. HEMOGLOBIN AND [id number] 11:59:00* Test Item Value Reference Range Interpretation Comments HEMOGLOBIN (BEAKER) (test code = 410) 8.0 GM/DL 13.7-17.5 L HEMATOCRIT (BEAKER) (test code = 411) 24.8 % 40.1-51.0 L BLOOD GAS, [id number] 11:29:00* Test Item Value Reference Range Interpretation [...] code = 1819) 60.0 % BASIC METABOLIC [id number] 07:54:00* Test Item Value Reference Range Interpretation [...] FOR DIALYSIS PATIENTS. Specimen markedly ictericBLOOD GAS, [id number] 06:45:00* Test Item Value Reference Range Interpretation [...] code = 1819) 75.0 % BASIC METABOLIC [id number] 06:44:00* Test Item Value Reference Range Interpretation [...] APPLICABLE FOR DIALYSIS PATIENTS. Specimen markedly ictericPOCT-GLUCOSE [id number] 06:22:00* Test Item Value Reference Range Interpretation Comments POC-GLUCOSE METER (BEAKER) (test code = 1538) 145 mg/dL 70-[address] [facility] [address] [facility] [address] [id number] 06:17:00* Test Item Value Reference Range Interpretation Comments MAGNESIUM (BEAKER) (test code = 627) 2.2 mg/dL 1.6-2.6 HEPATIC FUNCTION [id number] 06:17:00* Test Item Value Reference Range Interpretation [...] U/L 6-55 H Specimen markedly ictericBLOOD GAS, [id number] 06:04:00* Test Item Value Reference Range Interpretation [...] 75.0 % RAD, CHEST, 1 VIEW, NON [id number] 05:48:00Reason for exam:->pulmonary edemaShould this be performed [...] MDReport Verified Date/Time: 06/09/2018 05:48:52 Reading Location: [address] Neuro Reading Room D GAS, [id number] 04:53:00* Test Item Value Reference Range Interpretation [...] (test code = 1819) 75.0 % CALCIUM, [id number] 04:52:00* Test Item Value Reference Range Interpretation Comments CALCIUM IONIZED (BEAKER) (test code = 698) 1.08 mmol/L 1.12-1.27 L PH, BLOOD (BEAKER) (test code = 1810) 7.55 POCT-GLUCOSE [id number] 04:32:00* Test Item Value Reference Range Interpretation Comments POC-GLUCOSE METER (BEAKER) (test code = 1538) 144 mg/dL 70-110 H TESTED AT [address] [address] CBC W/PLT COUNT & AUTO [id number] 04:27:00* Test Item Value Reference Range Interpretation [...] code = 2801) 3 % 0-1 H [id number] 04:21:00* Test Item Value Reference Range Interpretation Comments PARTIAL THROMBOPLASTIN TIME (BEAKER) (test code = 760) 49.5 seconds 22.5-36.0 H PROTHROMBIN [id number] 04:20:00* Test Item Value Reference Range Interpretation Comments PROTIME (BEAKER) (test code = 759) 17.8 seconds 11.7-14.7 H INR (BEAKER) (test code = 370) 1.5 <=5.9 RECOMMENDED COUMADIN/WARFARIN INR THERAPY RANGESSTANDARD DOSE: 2.0 - 3.0 Inclu herb: PROPHYLAXIS for venous thrombosis, systemic embolization; TREATMENT for giulia ous thrombosis and/or pulmonary embolus.HIGH RISK: Target INR is 2.5-3.5 for pat ients with mechanical heart valves.POCT-GLUCOSE [id number] 03:44:00* Test Item Value Reference Range Interpretation Comments POC-GLUCOSE METER (BEAKER) (test code = 1538) 147 mg/dL 70-110 H TESTED AT [address] [address] BASIC METABOLIC [id number] 03:13:00* Test Item Value Reference Range Interpretation [...] APPLICABLE FOR DIALYSIS PATIENTS. Specimen markedly ictericPOCT-GLUCOSE [id number] 02:34:00* Test Item Value Reference Range Interpretation Comments POC-GLUCOSE METER (BEAKER) (test code = 1538) 158 mg/dL 70-110 H TESTED AT [address] [address] POCT-GLUCOSE [id number] 01:37:00* Test Item Value Reference Range Interpretation Comments POC-GLUCOSE METER (BEAKER) (test code = 1538) 158 mg/dL 70-110 H TESTED AT [address] [address] POCT-GLUCOSE [id number] 23:59:00* Test Item Value Reference Range Interpretation Comments POC-GLUCOSE METER (BEAKER) (test code = 1538) 150 mg/dL 70-110 H TESTED AT [address] [address] [id number] 22:28:00* Test Item Value Reference Range Interpretation Comments MAGNESIUM (BEAKER) (test code = 627) 2.4 mg/dL 1.6-2.6 Specimen slightly hemolyzed Check Serum Potassium level 2 hours after oral potassium replacement completed o r 30 min after intravenous potassium replacement.[id number] 21:44:00* Test Item Value Reference Range Interpretation Comments POTASSIUM (BEAKER) (test code = 379) 3.6 meq/L 3.5-5.1 Specimen slightly hemolyzed Check Serum Potassium level 2 hours after oral potassium replacement completed o r 30 min after intravenous potassium replacement.CALCIUM, [id number] 21:20:00* Test Item Value Reference Range Interpretation Comments CALCIUM IONIZED (BEAKER) (test code = 698) 1.06 mmol/L 1.12-1.27 L PH, BLOOD (BEAKER) (test code = 1810) 7.52 Check serum Ionized Calcium level after 4 hours after IV Calcium replacement. BASIC METABOLIC [id number] 20:46:00* Test Item Value Reference Range Interpretation [...] APPLICABLE FOR DIALYSIS PATIENTS. Specimen markedly ictericPOCT-GLUCOSE [id number] 20:42:00* Test Item Value Reference Range Interpretation Comments POC-GLUCOSE METER (BEAKER) (test code = 1538) 158 mg/dL 70-[address] [facility] [address] [facility] [address] BLOOD [id number] 20:01:00* Test Item Value Reference Range Interpretation Comments CULTURE (BEAKER) (test code = 1095) No growth in 5 days BLOOD [id number] 20:01:00* Test Item Value Reference Range Interpretation Comments CULTURE (BEAKER) (test code = 1095) No growth in 5 days BLOOD GAS, [id number] 18:23:00* Test Item Value Reference Range Interpretation [...] (test code = 1819) 75.0 % POCT-GLUCOSE [id number] 18:21:00* Test Item Value Reference Range Interpretation Comments POC-GLUCOSE METER (BEAKER) (test code = 1538) 145 mg/dL 70-[address] [facility] [address] [facility] [address] POCT-GLUCOSE [id number] 18:21:00* Test Item Value Reference Range Interpretation Comments POC-GLUCOSE METER (BEAKER) (test code = 1538) 122 mg/dL 70-[address] [facility] [address] [facility] [address] CORTISOL,60 [id number] 18:04:00* Test Item Value Reference Range Interpretation [...] to a study by Debbie et al ([facility] 2000,283(8):8546-45), the ACTH Stimulation Test provides important prognostic [...] level 60 minutes after cosyntropin administration. CORTISOL,30 [id number] 17:15:00* Test Item Value Reference Range Interpretation Comments CORTISOL BASELINE NETWORKED ([facility]) (test code = 2307) 17.6 mcg/dL CORTISOL, 30 MINUTE ([facility]) (test code = 1804) 24.7 ug/dL ACTH [...] to a study by Debbie et al ([facility] 2000,283(8):2630-45), the ACTH Stimulation Test provides important prognostic [...] level 60 minutes after cosyntropin administration.POCT- GLUCOSE [id number] 15:59:00* Test Item Value Reference Range Interpretation Comments POC-GLUCOSE METER (BEAKER) (test code = 1538) 162 mg/dL 70-[address] [facility] [address] [facility] [address] CORTISOL,[id number] 14:41:00* Test Item Value Reference Range Interpretation [...] a study by Debbie et al ([facility] 2000,283(9):5527-64), the ACTH Stimulation Test provides important prognostic [...] level 60 minutes after cosyntropin administration.POCT- GLUCOSE [id number] 13:55:00* Test Item Value Reference Range Interpretation Comments POC-GLUCOSE METER (BEAKER) (test code = 1538) 158 mg/dL 70-[address] [facility] [address] [facility] [address] POCT-GLUCOSE [id number] 13:55:00* Test Item Value Reference Range Interpretation Comments POC-GLUCOSE METER (BEAKER) (test code = 1538) 117 mg/dL 70-[address] [facility] [address] [facility] [address] BASIC METABOLIC [id number] 13:17:00* Test Item Value Reference Range Interpretation [...] NOT APPLICABLE FOR DIALYSIS PATIENTS. Specimen markedly [id number] 13:13:00* Test Item Value Reference Range Interpretation Comments MAGNESIUM (BEAKER) (test code = 627) 2.5 mg/dL 1.6-2.6 POCT-GLUCOSE [id number] 12:15:00* Test Item Value Reference Range Interpretation Comments POC-GLUCOSE METER (BEAKER) (test code = 1538) 139 mg/dL 70-110 H TESTED AT [address] [address] BLOOD GAS, [id number] 11:28:00* Test Item Value Reference Range Interpretation [...] (BEAKER) (test code = 1819) 75.0 % [id number] 09:54:00* Test Item Value Reference Range Interpretation Comments MAGNESIUM (BEAKER) (test code = 627) 2.5 mg/dL 1.6-2.6 Specimen slightly hemolyzed CALCIUM, [id number] 09:22:00* Test Item Value Reference Range Interpretation Comments CALCIUM IONIZED (BEAKER) (test code = 698) 1.08 mmol/L 1.12-1.27 L PH, BLOOD (BEAKER) (test code = 1810) 7.48 Check serum Ionized Calcium level after 4 hours after IV Calcium replacement.CT, CHEST, WITHOUT [id number] 09:01:00FINAL REPORT CT scan of the chest, [...] MDReport Verified Date/Time: 06/08/2018 09:01:11 Reading Location: [place] [id number] Ortho Consult Reading Room , [id number] 09:01:00FINAL REPORT CT scan of the chest, [...] [place] Verified Date/Time: 06/08/2018 09:01:11 Reading Location: [place] [address] Ortho Consult Reading Room -GLUCOSE [id number] 06:37:00* Test Item Value Reference Range Interpretation Comments POC-GLUCOSE METER (BEAKER) (test code = 1538) 142 mg/dL 70-[address] [facility] [address] [facility] [address] BLOOD GAS, [id number] 06:34:00* Test Item Value Reference Range Interpretation [...] (BEAKER) (test code = 1819) 90.0 % [id number] 06:11:00* Test Item Value Reference Range Interpretation Comments PARTIAL THROMBOPLASTIN TIME (BEAKER) (test code = 760) 54.2 seconds 22.5-36.0 H PROTHROMBIN TIME/[id number] 06:10:00* Test Item Value Reference Range Interpretation [...] pat ients with mechanical heart valves.HEPATIC FUNCTION [id number] 05:51:00* Test Item Value Reference Range Interpretation [...] U/L 6-55 H Specimen markedly ictericBASIC METABOLIC [id number] 05:51:00* Test Item Value Reference Range Interpretation [...] APPLICABLE FOR DIALYSIS PATIENTS. Specimen markedly ictericPOCT-GLUCOSE [id number] 05:43:00* Test Item Value Reference Range Interpretation Comments POC-GLUCOSE METER (BEAKER) (test code = 1538) 140 mg/dL 70-[address] [facility] [address] [facility] [address] [id number] 05:36:00* Test Item Value Reference Range Interpretation Comments MAGNESIUM (BEAKER) (test code = 627) 2.3 mg/dL 1.6-2.6 [id number] 05:25:00* Test Item Value Reference Range Interpretation Comments PHOSPHORUS (BEAKER) (test code = 604) 4.9 mg/dL 2.3-4.7 H Specimen slightly hemolyzed Check Serum Phosphorus level 4 hours after IV phosphorus replacement or 8 hours after PO replacement completed.POCT-GLUCOSE [id number] 04:20:00* Test Item Value Reference Range Interpretation Comments POC-GLUCOSE METER (BEAKER) (test code = 1538) 153 mg/dL 70-110 H TESTED AT [place] [id number] [facility] [address] RAD, CHEST, 1 VIEW, NON [id number] 04:10:00Reason for exam:->s/p intubation FINAL REPORT CLINICAL [...] V erified Date/Time: 06/08/2018 04:10:15 Reading Location: [address] Reading Room W/PLT COUNT & AUTO [id number] 03:53:00* Test Item Value Reference Range Interpretation [...] = 2801) 2 % 0-1 H CALCIUM, [id number] 02:54:00* Test Item Value Reference Range Interpretation Comments CALCIUM IONIZED (BEAKER) (test code = 698) 1.09 mmol/L 1.12-1.27 L PH, BLOOD (BEAKER) (test code = 1810) 7.45 Check serum Ionized Calcium level after 4 hours after IV Calcium replacement. BLOOD GAS, [id number] 02:54:00* Test Item Value Reference Range Interpretation [...] 100.0 % RAD, CHEST, 1 VIEW, NON [id number] 02:16:00Reason for exam:->tachypneaFINAL REPORT CLINICAL INDICATION: Kidney Comparison: 06/07/2018 The cardiomediastinal contours are stable. The lung volumes are low but stable after extubation. Worsening, near confluent bilateral pulmonary opacities are nonspecific and may reflect pulmonary edema or multifocal pneumonitis, among other considerations. There is no pneumothorax or large pleural effusion. A left IJ CVC remains in place. Signed: Katherine Reichort Verified Date/Time: 0 06/08/2018 02:16:21 Reading Location: [address] Reading Room E lectronically signed by: KATHERINE REICH M.D. on 06/08/2018 02:16 AM BASIC METABOLIC [id number] 01:44:00* Test Item Value Reference Range Interpretation [...] APPLICABLE FOR DIALYSIS PATIENTS. Specimen markedly ictericPOCT-GLUCOSE [id number] 01:18:00* Test Item Value Reference Range Interpretation Comments POC-GLUCOSE METER (BEAKER) (test code = 1538) 122 mg/dL 70-110 H TESTED AT [address] [address] BLOOD GAS, [id number] 01:03:00* Test Item Value Reference Range Interpretation [...] (test code = 1819) 100.0 % POCT-GLUCOSE [id number] 00:19:00* Test Item Value Reference Range Interpretation Comments POC-GLUCOSE METER (BEAKER) (test code = 1538) 136 mg/dL 70-[address] [facility] [address] [facility] [address] BLOOD GAS, [id number] 23:19:00* Test Item Value Reference Range Interpretation [...] (test code = 1819) 40.0 % POCT-GLUCOSE [id number] 22:58:00* Test Item Value Reference Range Interpretation Comments POC-GLUCOSE METER (BEAKER) (test code = 1538) 128 mg/dL 70-[address] [facility] [address] [facility] [address] POCT-GLUCOSE [id number] 22:00:00* Test Item Value Reference Range Interpretation Comments POC-GLUCOSE METER (BEAKER) (test code = 1538) 108 mg/dL 70-110 TESTED AT [place] [id number] [facility] [address] BASIC METABOLIC [id number] 21:50:00* Test Item Value Reference Range Interpretation [...] NOT APPLICABLE FOR DIALYSIS PATIENTS. Specimen markedly [id number] 21:38:00* Test Item Value Reference Range Interpretation Comments MAGNESIUM (BEAKER) (test code = 627) 2.0 mg/dL 1.6-2.6 CALCIUM, [id number] 21:15:00* Test Item Value Reference Range Interpretation Comments CALCIUM IONIZED (BEAKER) (test code = 698) 1.12 mmol/L 1.12-1.27 PH, BLOOD (BEAKER) (test code = 1810) 7.51 Check serum Ionized Calcium level after 4 hours after IV Calcium replacement. POCT-GLUCOSE [id number] 20:58:00* Test Item Value Reference Range Interpretation Comments POC-GLUCOSE METER (BEAKER) (test code = 1538) 97 mg/dL 70-110 TESTED AT [address] [address] POCT-GLUCOSE [id number] 19:42:00* Test Item Value Reference Range Interpretation Comments POC-GLUCOSE METER (BEAKER) (test code = 1538) 101 mg/dL 70-110 TESTED AT [address] [address] POCT-GLUCOSE [id number] 18:42:00* Test Item Value Reference Range Interpretation Comments POC-GLUCOSE METER (BEAKER) (test code = 1538) 97 mg/dL 70-110 TESTED AT [address] [address] BLOOD GAS, [id number] 16:56:00* Test Item Value Reference Range Interpretation [...] (test code = 1819) 100.0 % POCT-GLUCOSE [id number] 16:45:00* Test Item Value Reference Range Interpretation Comments POC-GLUCOSE METER (BEAKER) (test code = 1538) 149 mg/dL 70-[address] [facility] [address] [facility] [address] POCT-GLUCOSE [id number] 15:25:00* Test Item Value Reference Range Interpretation Comments POC-GLUCOSE METER (BEAKER) (test code = 1538) 74 mg/dL 70-110 TESTED AT [place] [id number] [facility] [address] POCT-GLUCOSE [id number] 14:31:00* Test Item Value Reference Range Interpretation Comments POC-GLUCOSE METER (BEAKER) (test code = 1538) 129 mg/dL 70-110 H TESTED AT [address] [address] [id number] 13:46:00* Test Item Value Reference Range Interpretation Comments MAGNESIUM (BEAKER) (test code = 627) 1.8 mg/dL 1.6-2.6 BASIC METABOLIC [id number] 13:46:00* Test Item Value Reference Range Interpretation [...] APPLICABLE FOR DIALYSIS PATIENTS. Specimen markedly ictericPOCT-GLUCOSE [id number] 13:03:00* Test Item Value Reference Range Interpretation Comments POC-GLUCOSE METER (BEAKER) (test code = 1538) 182 mg/dL 70-[address] [facility] [address] [facility] [place] [address] ANTI-MITOCHONDRIAL AB, REFLEX TO [id number] 11:38:00* Test Item Value Reference Range Interpretation Comments SCAN RESULT (test code = 9860371) CBC W/PLT COUNT & AUTO [id number] 11:36:00* Test Item Value Reference Range Interpretation [...] Received comment: User comments: Slide comments: POCT-GLUCOSE [id number] 11:35:00* Test Item Value Reference Range Interpretation Comments POC-GLUCOSE METER (BEAKER) (test code = 1538) 128 mg/dL 70-[address] [facility] [address] [facility] [address] POCT-GLUCOSE [id number] 11:13:00* Test Item Value Reference Range Interpretation Comments POC-GLUCOSE METER (BEAKER) (test code = 1538) 97 mg/dL 70-[address] [facility] [address] [facility] [address] POCT-GLUCOSE [id number] 11:13:00* Test Item Value Reference Range Interpretation Comments POC-GLUCOSE METER (BEAKER) (test code = 1538) 68 mg/dL 70-[address] [facility] [address] [facility] [address] BLOOD GAS, [id number] 10:41:00* Test Item Value Reference Range Interpretation [...] code = 1819) 100.0 % CATHETER TIP [id number] 09:30:00* Test Item Value Reference Range Interpretation Comments CULTURE (BEAKER) (test code = 1095) No growth BLOOD GAS, [id number] 08:13:00* Test Item Value Reference Range Interpretation [...] (test code = 1819) 65.0 % POCT-GLUCOSE [id number] 07:48:00* Test Item Value Reference Range Interpretation Comments POC-GLUCOSE METER (BEAKER) (test code = 1538) 127 mg/dL 70-110 H TESTED AT [place] [id number] [facility] [address] RAD, CHEST, 1 VIEW, NON [id number] 07:37:00Reason for exam:->resp failureShould this be performed [...] Garcia Verified Date/Time: 06/07/2018 07:37:40 Reading Location: [facility] Radiology Reading Room -GLUCOSE METER 2018-06-07 06:32:00* Test Item Value Reference Range Interpretation Comments POC-GLUCOSE METER (BEAKER) (test code = 1538) 165 mg/dL 70-110 H TESTED AT [address] [address] BLOOD GAS, [id number] 05:35:00* Test Item Value Reference Range Interpretation [...] (test code = 1819) 60.0 % CALCIUM, [id number] 05:35:00* Test Item Value Reference Range Interpretation Comments CALCIUM IONIZED (BEAKER) (test code = 698) 0.96 mmol/L 1.12-1.27 L PH, BLOOD (BEAKER) (test code = 1810) 7.45 HEPATIC FUNCTION [id number] 05:32:00* Test Item Value Reference Range Interpretation [...] 103 U/L 6-55 H Specimen markedly ictericPOCT-GLUCOSE [id number] 05:18:00* Test Item Value Reference Range Interpretation Comments POC-GLUCOSE METER (BEAKER) (test code = 1538) 182 mg/dL 70-[address] [facility] [address] [facility] [address] BASIC METABOLIC [id number] 05:17:00* Test Item Value Reference Range Interpretation [...] FOR DIALYSIS PATIENTS. Specimen markedly ictericLACTIC ACID, [id number] 04:58:00* Test Item Value Reference Range Interpretation Comments LACTATE BLOOD ARTERIAL (2) (BEAKER) (test code = 2874) 1.2 mmol/L 0.5-2.2 Specimen markedly [id number] 04:50:00* Test Item Value Reference Range Interpretation Comments PARTIAL THROMBOPLASTIN TIME (BEAKER) (test code = 760) 43.5 seconds 22.5-36.0 H PROTHROMBIN TIME/[id number] 04:49:00* Test Item Value Reference Range Interpretation Comments PROTIME (BEAKER) (test code = 759) 18.1 seconds 11.7-14.7 H INR (BEAKER) (test code = 370) 1.5 <=5.9 RECOMMENDED COUMADIN/WARFARIN INR THERAPY RANGESSTANDARD DOSE: 2.0 - 3.0 Inclu herb: PROPHYLAXIS for venous thrombosis, systemic embolization; TREATMENT for giulia ous thrombosis and/or pulmonary embolus.HIGH RISK: Target INR is 2.5-3.5 for pat ients with mechanical heart valves.POCT-GLUCOSE [id number] 04:16:00* Test Item Value Reference Range Interpretation Comments POC-GLUCOSE METER (BEAKER) (test code = 1538) 180 mg/dL 70-110 H TESTED AT [address] [address] POCT-GLUCOSE [id number] 03:20:00* Test Item Value Reference Range Interpretation Comments POC-GLUCOSE METER (BEAKER) (test code = 1538) 171 mg/dL 70-110 H TESTED AT [address] [address] POCT-GLUCOSE [id number] 02:44:00* Test Item Value Reference Range Interpretation Comments POC-GLUCOSE METER (BEAKER) (test code = 1538) 154 mg/dL 70-110 H TESTED AT [address] [address] POCT-GLUCOSE [id number] 01:31:00* Test Item Value Reference Range Interpretation Comments POC-GLUCOSE METER (BEAKER) (test code = 1538) 140 mg/dL 70-110 H TESTED AT [address] [address] BASIC METABOLIC [id number] 01:02:00* Test Item Value Reference Range Interpretation [...] APPLICABLE FOR DIALYSIS PATIENTS. Specimen markedly ictericPOCT-GLUCOSE [id number] 00:57:00* Test Item Value Reference Range Interpretation Comments POC-GLUCOSE METER (BEAKER) (test code = 1538) 173 mg/dL 70-110 H TESTED AT [address] [address] POCT-GLUCOSE [id number] 23:27:00* Test Item Value Reference Range Interpretation Comments POC-GLUCOSE METER (BEAKER) (test code = 1538) 155 mg/dL 70-110 H TESTED AT [address] [address] BASIC METABOLIC [id number] 22:38:00* Test Item Value Reference Range Interpretation [...] NOT APPLICABLE FOR DIALYSIS PATIENTS. Specimen markedly [id number] 22:37:00* Test Item Value Reference Range Interpretation Comments MAGNESIUM (BEAKER) (test code = 627) 2.0 mg/dL 1.6-2.6 BLOOD GAS, [id number] 22:18:00* Test Item Value Reference Range Interpretation [...] (test code = 1819) 60.0 % CALCIUM, [id number] 22:15:00* Test Item Value Reference Range Interpretation Comments CALCIUM IONIZED (BEAKER) (test code = 698) 1.05 mmol/L 1.12-1.27 L PH, BLOOD (BEAKER) (test code = 1810) 7.46 POCT-GLUCOSE [id number] 22:08:00* Test Item Value Reference Range Interpretation Comments POC-GLUCOSE METER (BEAKER) (test code = 1538) 138 mg/dL 70-110 H TESTED AT [address] [address] POCT-GLUCOSE [id number] 21:16:00* Test Item Value Reference Range Interpretation Comments POC-GLUCOSE METER (BEAKER) (test code = 1538) 158 mg/dL 70-110 H TESTED AT [address] [address] [id number] 21:03:00* Test Item Value Reference Range Interpretation Comments POTASSIUM (BEAKER) (test code = 379) 3.8 meq/L 3.5-5.1 Check Serum Potassium level 2 hours after oral potassium replacement completed o r 30 min after intravenous potassium replacement.[id number] 21:03:00* Test Item Value Reference Range Interpretation Comments MAGNESIUM (BEAKER) (test code = 627) 2.0 mg/dL 1.6-2.6 Check Serum Potassium level 2 hours after oral potassium replacement completed o r 30 min after intravenous potassium replacement.POCT-GLUCOSE [id number] 20:15:00* Test Item Value Reference Range Interpretation Comments POC-GLUCOSE METER (BEAKER) (test code = 1538) 161 mg/dL 70-110 H TESTED AT [address] [address] POCT-GLUCOSE [id number] 20:15:00* Test Item Value Reference Range Interpretation Comments POC-GLUCOSE METER (BEAKER) (test code = 1538) 113 mg/dL 70-110 H TESTED AT [address] [address] POCT-GLUCOSE [id number] 19:33:00* Test Item Value Reference Range Interpretation Comments POC-GLUCOSE METER (BEAKER) (test code = 1538) 169 mg/dL 70-110 H TESTED AT [address] [address] [id number] 17:52:00* Test Item Value Reference Range Interpretation Comments CORTISOL, TOTAL (BEAKER) (test code = 2755) 23.9 ug/dL 3.7-19.4 H C. DIFFICILE GDH [id number] 17:45:00* Test Item Value Reference Range Interpretation Comments CDT TOXIN (test code = 1864798729) Negative Negative CDT GDH ANTIGEN (test code = 7523948935) Positive Negative A C. difficile present but toxin not detected. Indicates colonization with non-toxigenic strain or level of toxin below detectable levels. No need for enteric isolation. Treatment is rarely needed (only when strong clinical suspicion for Clostridium difficile infection) Testing performed by [employer] Rapid [employer]ette Assay. For GDH, published sensitivity of the assay is 98.7% compared to cytotoxicity testing. For Toxin AB, publishe d sensitivity is 87.8% and specificity 99.4% compared to cytotoxicity testing.Ve rification of kit performance was done by the [facility] Microbiology Lab prior to cl inical use.BASIC METABOLIC [id number] 16:48:00* Test Item Value Reference Range Interpretation [...] APPLICABLE FOR DIALYSIS PATIENTS. Specimen markedly ictericPOCT-GLUCOSE [id number] 15:10:00* Test Item Value Reference Range Interpretation Comments POC-GLUCOSE METER (BEAKER) (test code = 1538) 78 mg/dL 70-[address] [facility] [address] [facility] [address] TROPONIN [id number] 13:26:00* Test Item Value Reference Range Interpretation [...] acidosis, acute neurological disease, and per sistent tachyarrhythmia.[id number] 13:14:00* Test Item Value Reference Range Interpretation [...] 0.50 MG/L FEU, the Negative Predictive Value (GRINDER SET UP OPERATOR CENTERLESS V) regarding the exclusion of thrombosis is within 95-100% range.LACTIC ACID, [id number] 13:12:00* Test Item Value Reference Range Interpretation Comments LACTATE BLOOD ARTERIAL (2) (BEAKER) (test code = 2874) 1.3 mmol/L 0.5-2.2 Specimen markedly [id number] 12:57:00* Test Item Value Reference Range Interpretation Comments MAGNESIUM (BEAKER) (test code = 627) 2.1 mg/dL 1.6-2.6 POCT-GLUCOSE [id number] 12:21:00* Test Item Value Reference Range Interpretation Comments POC-GLUCOSE METER (BEAKER) (test code = 1538) 162 mg/dL 70-[address] [facility] [address] [facility] [address] BLOOD [id number] 12:01:00* Test Item Value Reference Range Interpretation Comments CULTURE (BEAKER) (test code = 1095) No growth in 5 days BLOOD [id number] 12:01:00* Test Item Value Reference Range Interpretation Comments CULTURE (BEAKER) (test code = 1095) No growth in 5 days YARI ANTIGEN WITH REFLEX TO [id number] 11:08:00* Test Item Value Reference Range Interpretation Comments YARI ANTIGEN (BEAKER) (test code = 1782) Positive YARI ANTIGEN [id number] 11:08:00* Test Item Value Reference Range Interpretation Comments YARI ANTIGEN TITER (BEAKER) (test code = 737) :4 POCT-GLUCOSE [id number] 11:00:00* Test Item Value Reference Range Interpretation Comments POC-GLUCOSE METER (BEAKER) (test code = 1538) 153 mg/dL 70-[address] [facility] [address] [facility] [address] RAD, CHEST, 1 VIEW, NON [id number] 10:38:00Reason for exam:->oxygen desaturation in setting of [...] MDReport Verified Date/Time: 06/06/2018 10:38:12 Reading Location: [facility] Radiology Reading Room -NUCLEAR ANTIBODY (TOM)2018-06-06 10:20:00* [...] (BEAKER) (test code = 1819) 100.0 % [id number] 09:37:00* Test Item Value Reference Range Interpretation Comments LIPASE (BEAKER) (test code = 749) 6 U/L 8-78 L Specimen markedly ictericHEPATIC FUNCTION [id number] 09:37:00* Test Item Value Reference Range Interpretation [...] 347) 105 U/L 6-55 H Specimen markedly [id number] 09:36:00* Test Item Value Reference Range Interpretation Comments AMYLASE (BEAKER) (test code = 349) 17 U/L 25-125 L Specimen markedly [id number] 09:24:00* Test Item Value Reference Range Interpretation Comments CORTISOL, TOTAL (BEAKER) (test code = 2755) 19.9 ug/dL 3.7-19.4 H SPUTUM CULTURE + GRAM [id number] 08:59:00* Test Item Value Reference Range Interpretation Comments CULTURE (BEAKER) (test code = 1095) No growth GRAM STAIN RESULT (BEAKER) (test code = 1123) 3+ WBCs GRAM STAIN RESULT (BEAKER) (test code = 39792) 0-5 epithelial cells GRAM STAIN RESULT (BEAKER) (test code = 16354) No organisms seen BRONCHIAL CULTURE + GRAM [id number] 08:58:00* Test Item Value Reference Range Interpretation Comments CULTURE (BEAKER) (test code = 1095) <1+ Normal respiratory chase pr esent GRAM STAIN RESULT (BEAKER) (test code = 1123) 4+ WBCs GRAM STAIN RESULT (BEAKER) (test code = 18758) No organisms seen BRONCHIAL CULTURE + GRAM [id number] 08:58:00* Test Item Value Reference Range Interpretation Comments CULTURE (BEAKER) (test code = 1095) No growth GRAM STAIN RESULT (BEAKER) (test code = 1123) 1+ WBCs GRAM STAIN RESULT (BEAKER) (test code = 30621) No organisms seen POCT-GLUCOSE [id number] 08:15:00* Test Item Value Reference Range Interpretation Comments POC-GLUCOSE METER (BEAKER) (test code = 1538) 117 mg/dL 70-[address] [facility] [address] [facility] [address] CBC W/PLT COUNT & AUTO [id number] 07:36:00* Test Item Value Reference Range Interpretation [...] comment: User comments: Slide comments: BLOOD GAS, [id number] 06:28:00* Test Item Value Reference Range Interpretation [...] (test code = 1819) 80.0 % POCT-GLUCOSE [id number] 06:21:00* Test Item Value Reference Range Interpretation Comments POC-GLUCOSE METER (BEAKER) (test code = 1538) 130 mg/dL 70-110 H TESTED AT [place] [id number] [facility] [address] RAD, CHEST, 1 VIEW, NON [id number] 05:21:00Reason for exam:->hypoxiaShould this be performed at [...] Avendaño Verified Date/Time: 06/06/2018 05:21:30 Reading Location: [address] Neuro Reading Room -GLUCOSE [id number] 05:10:00* Test Item Value Reference Range Interpretation Comments POC-GLUCOSE METER (BEAKER) (test code = 1538) 144 mg/dL 70-[address] [facility] [address] [facility] [address] POCT-GLUCOSE [id number] 04:17:00* Test Item Value Reference Range Interpretation Comments POC-GLUCOSE METER (BEAKER) (test code = 1538) 161 mg/dL 70-[address] [facility] [address] [facility] [address] [id number] 04:06:00* Test Item Value Reference Range Interpretation Comments PHOSPHORUS (BEAKER) (test code = 604) 3.8 mg/dL 2.3-4.7 Check Serum Phosphorus level 4 hours after IV phosphorus replacement or 8 hours after PO replacement completed.[id number] 04:06:00* Test Item Value Reference Range Interpretation Comments MAGNESIUM (BEAKER) (test code = 627) 2.5 mg/dL 1.6-2.6 Check Serum Phosphorus level 4 hours after IV phosphorus replacement or 8 hours after PO replacement completed.BASIC METABOLIC [id number] 04:06:00* Test Item Value Reference Range Interpretation [...] 8 hours after PO replacement completed.Specimen markedly [id number] 04:02:00 * Test Item Value Reference Range Interpretation Comments PARTIAL THROMBOPLASTIN TIME (BEAKER) (test code = 760) 44.7 seconds 22.5-36.0 H PROTHROMBIN TIME/[id number] 04:00:00* Test Item Value Reference Range Interpretation [...] pat ients with mechanical heart valves.BLOOD GAS, [id number] 03:38:00* Test Item Value Reference Range Interpretation [...] code = 1819) 70.0 % BASIC METABOLIC [id number] 03:34:00* Test Item Value Reference Range Interpretation [...] APPLICABLE FOR DIALYSIS PATIENTS. Specimen markedly ictericPOCT-GLUCOSE [id number] 03:19:00* Test Item Value Reference Range Interpretation Comments POC-GLUCOSE METER (BEAKER) (test code = 1538) 171 mg/dL 70-110 H TESTED AT [address] [address] POCT-GLUCOSE [id number] 02:34:00* Test Item Value Reference Range Interpretation Comments POC-GLUCOSE METER (BEAKER) (test code = 1538) 201 mg/dL 70-110 H TESTED AT [address] [address] POCT-GLUCOSE [id number] 01:17:00* Test Item Value Reference Range Interpretation Comments POC-GLUCOSE METER (BEAKER) (test code = 1538) 174 mg/dL 70-110 H TESTED AT [address] [address] [id number] 00:15:00* Test Item Value Reference Range Interpretation Comments MAGNESIUM (BEAKER) (test code = 627) 2.3 mg/dL 1.6-2.6 POCT-GLUCOSE [id number] 00:10:00* Test Item Value Reference Range Interpretation Comments POC-GLUCOSE METER (BEAKER) (test code = 1538) 143 mg/dL 70-110 H TESTED AT [address] [address] POCT-GLUCOSE [id number] 23:18:00* Test Item Value Reference Range Interpretation Comments POC-GLUCOSE METER (BEAKER) (test code = 1538) 145 mg/dL 70-110 H TESTED AT [address] [address] POCT-GLUCOSE [id number] 22:18:00* Test Item Value Reference Range Interpretation Comments POC-GLUCOSE METER (BEAKER) (test code = 1538) 186 mg/dL 70-110 H TESTED AT [address] [address] POCT-GLUCOSE [id number] 21:23:00* Test Item Value Reference Range Interpretation Comments POC-GLUCOSE METER (BEAKER) (test code = 1538) 220 mg/dL 70-110 H TESTED AT [address] [address] POCT-GLUCOSE [id number] 20:47:00* Test Item Value Reference Range Interpretation Comments POC-GLUCOSE METER (BEAKER) (test code = 1538) 248 mg/dL 70-110 H TESTED AT [address] [address] POCT-GLUCOSE [id number] 19:10:00* Test Item Value Reference Range Interpretation Comments POC-GLUCOSE METER (BEAKER) (test code = 1538) 236 mg/dL 70-110 H TESTED AT [address] [address] POCT-GLUCOSE [id number] 18:16:00* Test Item Value Reference Range Interpretation Comments POC-GLUCOSE METER (BEAKER) (test code = 1538) 275 mg/dL 70-110 H TESTED AT [address] [address] BLOOD GAS, [id number] 17:21:00* Test Item Value Reference Range Interpretation [...] (test code = 1819) 60.0 % POCT-GLUCOSE [id number] 17:12:00* Test Item Value Reference Range Interpretation Comments POC-GLUCOSE METER (BEAKER) (test code = 1538) 304 mg/dL 70-110 H Will Repeat Test/TESTED AT [address] [address] POCT-GLUCOSE [id number] 16:01:00* Test Item Value Reference Range Interpretation Comments POC-GLUCOSE METER (BEAKER) (test code = 1538) 302 mg/dL 70-110 H TESTED AT [address] [address] BLOOD GAS, [id number] 14:06:00* Test Item Value Reference Range Interpretation [...] (BEAKER) (test code = 1819) 70.0 % [id number] 13:25:00* Test Item Value Reference Range Interpretation Comments POTASSIUM (BEAKER) (test code = 379) 4.1 meq/L 3.5-5.1 Specimen slightly hemolyzed [id number] 13:25:00* Test Item Value Reference Range Interpretation Comments GLUCOSE RANDOM (BEAKER) (test code = 652) 346 mg/dL 70-105 H BASIC METABOLIC [id number] 13:18:00* Test Item Value Reference Range Interpretation [...] NOT APPLICABLE FOR DIALYSIS PATIENTS. Specimen markedly [id number] 13:17:00* Test Item Value Reference Range Interpretation Comments MAGNESIUM (BEAKER) (test code = 627) 2.4 mg/dL 1.6-2.6 Specimen slightly hemolyzed BASIC METABOLIC [id number] 13:17:00* Test Item Value Reference Range Interpretation [...] APPLICABLE FOR DIALYSIS PATIENTS. Specimen markedly ictericPOCT-GLUCOSE [id number] 11:46:00* Test Item Value Reference Range Interpretation Comments POC-GLUCOSE METER (BEAKER) (test code = 1538) 297 mg/dL 70-110 H TESTED AT [address] [address] RAD, CHEST, 1 VIEW, NON [id number] 11:28:00Reason for exam:->resp failureShould this be performed at the bedside?->YesFINAL REPORT AP chest HISTORY: Respiratory failure. COMPARISON: 06/04/2018. IMPRESSION: Supportive lines unchanged. Hypoinflation. Asymmetric interstitial opacities, left greater than right, increased from previous. No pneumothorax. Signed: Eric Andradeeport Verified Date/Time: 06/05/2018 11:28:49 Reading Location: [facility] Radiology Reading Room IRATORY PANEL [facility] 2018-06-05 09:47:00* Test Item Value [...] decisions. This sample was tested at the [facility] Molecular Diagnostics Laboratory using the NCLCfirStepcase FilmA rray Respiratory Panel. It is FDA cleared and has been verified and approved by the [facility] Molecular Diagnostics Laboratory for clinical use on nasal swab specim ens. It is not FDA-cleared for use on bronchial wash/lavage samples. However, fo r this sample type, validation was performed and test characteristics were deter mined and approved, by [facility] laboratory for clinical use u nder the Clinical Laboratory Improvement Amendments (CLIA) of 1988 requirements. Therefore, FDA clearance is not required. This laboratory is CLIA-certified an d [employer] ([employer])-accredited to perform high complexity t esting.CBC W/PLT COUNT & AUTO [id number] 07:05:00* Test Item Value Reference Range Interpretation [...] quate Received comment: User comments: Slide comments: [id number] 06:05:00* Test Item Value Reference Range Interpretation Comments PROCALCITONIN (BEAKER) (test code = 3036) 2.30 ng/mL <0.05 H SEPSIS RISK (ng/mL)Low: 0.05-0.50Intermediate: 0.51-2.00High: > =2.01LACTIC ACID, [id number] 05:39:00* Test Item Value Reference Range Interpretation Comments LACTATE BLOOD ARTERIAL (2) (BEAKER) (test code = 2874) 1.3 mmol/L 0.5-2.2 Specimen slightly hemolyzed Specimen markedly ictericCALCIUM, [id number] 04:12:00* Test Item Value Reference Range Interpretation Comments CALCIUM IONIZED (BEAKER) (test code = 698) 0.98 mmol/L 1.12-1.27 L PH, BLOOD (BEAKER) (test code = 1810) 7.43 Check serum Ionized Calcium level after 4 hours after IV Calcium replacement. BLOOD GAS, [id number] 04:06:00* Test Item Value Reference Range Interpretation [...] (test code = 1819) 75.0 % PTH, [id number] 04:05:00* Test Item Value Reference Range Interpretation Comments PARATHYROID HORMONE INTACT (BEAKER) (test code = 577) 183.2 pg/mL 8.5-72.5 H [id number] 04:04:00* Test Item Value Reference Range Interpretation Comments PARTIAL THROMBOPLASTIN TIME (BEAKER) (test code = 760) 48.3 seconds 22.5-36.0 H PROTHROMBIN TIME/[id number] 04:03:00* Test Item Value Reference Range Interpretation [...] = 380) 90 U/L 29-20 0 POCT-GLUCOSE [id number] 00:47:00* Test Item Value Reference Range Interpretation Comments POC-GLUCOSE METER (BEAKER) (test code = 1538) 277 mg/dL 70-[address] [facility] [address] [facility] [address] CALCIUM, [id number] 00:37:00* Test Item Value Reference Range Interpretation Comments CALCIUM IONIZED (BEAKER) (test code = 698) 0.95 mmol/L 1.12-1.27 L PH, BLOOD (BEAKER) (test code = 1810) 7.44 Check serum Ionized Calcium level after 4 hours after IV Calcium replacement. [id number] 00:36:00* Test Item Value Reference Range Interpretation Comments POTASSIUM (BEAKER) (test code = 379) 3.9 meq/L 3.5-5.1 8 hours after PO replacement [id number] 20:35:00* Test Item Value Reference Range Interpretation Comments MAGNESIUM (BEAKER) (test code = 627) 2.3 mg/dL 1.6-2.6 BASIC METABOLIC [id number] 20:35:00* Test Item Value Reference Range Interpretation [...] FOR DIALYSIS PATIENTS. Specimen markedly ictericU/S, ABDOMINAL, [id number] 18:10:00Abdomen limited area? Add comment if clarification [...] of hepatic steatosis.2. Trace ascites. Signed: Regis Ortegaort Verified Date/Time: 06/04/2018 18:10:46 Reading Location: [address] Ultrasound Reading Room -GLUCOSE METER 2018-06-04 17:48:00* Test Item Value Reference Range Interpretation Comments POC-GLUCOSE METER (BEAKER) (test code = 1538) 294 mg/dL 70-[address] [facility] [address] [facility] [address] CALCIUM, [id number] 15:55:00* Test Item Value Reference Range Interpretation Comments CALCIUM IONIZED (BEAKER) (test code = 698) 0.98 mmol/L 1.12-1.27 L PH, BLOOD (BEAKER) (test code = 1810) 7.50 RAD, ABDOMEN/KUB, 1 VIEW [id number] 14:34:00Reason for exam:->Cortrak placementFINAL REPORT Abdomen. CLINICAL HISTORY: Corpak placement. Comparison study: None available. FINDINGS: A single supine view the abdomen demonstrates a feeding tube in place, the distal aspect coiled near the antrum with the tip projecting over the mid stomach. This film is insensitive for the detection of free air. Signed: Andrew Sloan MDReport Verified Date/Time: 06/04/2018 14:34:10 Reading Location: [facility] C013W Consult Reading Room C METABOLIC [id number] 14:26:00* Test Item Value Reference Range Interpretation [...] FOR DIALYSIS PATIENTS. Specimen markedly ictericLACTIC ACID, [id number] 14:09:00* Test Item Value Reference Range Interpretation Comments LACTATE BLOOD ARTERIAL (2) (BEAKER) (test code = 2874) 1.2 mmol/L 0.5-2.2 Specimen markedly ictericPOCT-GLUCOSE [id number] 13:35:00* Test Item Value Reference Range Interpretation Comments POC-GLUCOSE METER (BEAKER) (test code = 1538) 247 mg/dL 70-110 H TESTED AT [address] [address] [id number] 11:32:00* Test Item Value Reference Range Interpretation Comments MAGNESIUM (BEAKER) (test code = 627) 2.1 mg/dL 1.6-2.6 Specimen slightly hemolyzed BASIC METABOLIC [id number] 11:32:00* Test Item Value Reference Range Interpretation [...] FOR DIALYSIS PATIENTS. Specimen markedly ictericVANCOMYCIN LEVEL, [id number] 11:20:00* Test Item Value Reference Range Interpretation Comments VANCOMYCIN RANDOM (BEAKER) (test code = 523) 27.0 ug/mL Reference Range: No NormalsURINALYSIS W/ REFLEX URINE [id number] 11:15:00 * Test Item Value Reference Range [...] = 2795) RAD, CHEST, 1 VIEW, NON [id number] 11:01:00Reason for exam:->ETT advancement, L IJ CVC [...] No pulmonary edema. No fracture. Signed: Sb Shieldseport Verified Date/Time: 06/04/2018 11:01:19 Reading Location: [facility] Radiology Reading Room C METABOLIC [id number] 10:59:00* Test Item Value Reference Range Interpretation [...] NOT APPLICABLE FOR DIALYSIS PATIENTS. Specimen markedly [id number] 10:53:00* Test Item Value Reference Range Interpretation Comments AMYLASE (BEAKER) (test code = 349) 32 U/L 25-125 Specimen markedly [id number] 10:53:00* Test Item Value Reference Range Interpretation Comments LIPASE (BEAKER) (test code = 749) 27 U/L 8-78 Specimen markedly ictericBLOOD GAS, [id number] 10:51:00* Test Item Value Reference Range Interpretation [...] (test code = 368) 5.3 % 4.3-6.1 [id number] 09:15:00* Test Item Value Reference Range Interpretation Comments PROCALCITONIN (BEAKER) (test code = 3036) 2.96 ng/mL <0.05 H SEPSIS RISK (ng/mL)Low: 0.05-0.50Intermediate: 0.51-2.00High: > =2.01RAD, CHEST, 1 VIEW, NON [id number] 09:01:00Reason for exam:->ARDSFINAL REPORT TECHNIQUE: Frontal chest radiograph dated . CLINICAL HISTORY: ARDS COMPARISON STUDY: Chest radiograph dated 9 IMPRESSION:Life support tubes and lines are unchanged. There is stable atelect asis in the left lung base. No pleural effusion or pneumothorax. Cardiomediastin al silhouette is normal in size. No pulmonary edema. No fracture. Signed: Sb Don Verified Date/Time: 06/04/2018 09:01:21 Reading Location : [facility] Radiology Reading Room IC ACID, [id number] 08:49:00* Test Item Value Reference Range Interpretation Comments LACTATE BLOOD ARTERIAL (2) (BEAKER) (test code = 2874) 1.4 mmol/L 0.5-2.2 Specimen moderately ictericBLOOD GAS, [id number] 05:26:00* Test Item Value Reference Range Interpretation [...] code = 1819) 80.0 % COMPREHENSIVE METABOLIC [id number] 04:41:00* Test Item Value Reference Range Interpretation [...] FOR DIALYSIS PATIENTS. Specimen markedly ictericHEPATIC FUNCTION [id number] 04:41:00* Test Item Value Reference Range Interpretation [...] U/L 6-55 H Specimen markedly ictericLACTIC ACID, [id number] 04:32:00* Test Item Value Reference Range Interpretation Comments LACTATE BLOOD ARTERIAL (2) (BEAKER) (test code = 2874) 1.6 mmol/L 0.5-2.2 Specimen markedly [id number] 04:31:00* Test Item Value Reference Range Interpretation Comments FIBRINOGEN LEVEL (BEAKER) (test code = 658) 592 mg/dl 225-434 H PT/[id number] 04:31:00* Test Item Value Reference Range Interpretation [...] 2.5-3.5 for pat ients with mechanical heart valves.[id number] 04:31:00* Test Item Value Reference Range Interpretation Comments PARTIAL THROMBOPLASTIN TIME (BEAKER) (test code = 760) 41.5 seconds 22.5-36.0 H PROTHROMBIN TIME/[id number] 04:30:00* Test Item Value Reference Range Interpretation [...] mechanical heart valves.CBC W/PLT COUNT & AUTO [id number] 04:15:00* Test Item Value Reference Range Interpretation [...] = 2801) 3 % 0-1 H POCT-GLUCOSE [id number] 23:44:00* Test Item Value Reference Range Interpretation Comments POC-GLUCOSE METER (BEAKER) (test code = 1538) 195 mg/dL 70-[address] [facility] [address] [facility] [address] RAD, CHEST, 1 VIEW, NON [id number] 21:14:00Reason for exam:->respiratory failure/hypoxiaShould this be performed [...] MDReport Verified Date/Time: 09/2018 21:14:49 Reading Location: [facility] C013W Consult Reading Room Electro nically signed by: SADIQ HAINES M.D. on 06/03/2018 09:14 PM FERRITIN 2018-06-03 21:11:00* Test Item Value Reference Range Interpretation Comments FERRITIN (BEAKER) (test code = 361) 1898 ng/mL 5-275 H HEPATITIS B SURFACE [id number] 20:52:00* Test Item Value Reference Range Interpretation Comments HEPATITIS B SURFACE ANTIBODY (BEAKER) (test code = 647) < mIU/mL <8.0 HEPATITIS B SURFACE [id number] 20:51:00* Test Item Value Reference Range Interpretation Comments HEPATITIS B SURFACE ANTIGEN (2) (BEAKER) (test code = 2585) Nonreactive Nonreactive HEPATITIS C [id number] 20:51:00* Test Item Value Reference Range Interpretation Comments HEPATITIS C ANTIBODY (BEAKER) (test code = 367) Nonreactive Nonrea ctive HEPATITIS B CORE ANTIBODY, [id number] 20:51:00* Test Item Value Reference Range Interpretation Comments HEPATITIS B CORE TOTAL ANTIBODY (BEAKER) (test code = 497) N onreactive Nonreactive [id number] 20:48:00* Test Item Value Reference Range Interpretation Comments MAGNESIUM (BEAKER) (test code = 627) 1.9 mg/dL 1.6-2.6 BASIC METABOLIC [id number] 20:48:00* Test Item Value Reference Range Interpretation [...] DIALYSIS PATIENTS. Specimen markedly ictericHEPATITIS A ANTIBODY, [id number] 20:45:00* Test Item Value Reference Range Interpretation Comments HEPATITIS A IGG ANTIBODY (BEAKER) (test code = 2797) Reactive N onreactive A ALPHA FETOPROTEIN (AFP), TUMOR [id number] 20:44:00* Test Item Value Reference Range Interpretation Comments ALPHA-FETOPROTEIN (BEAKER) (test code = 1094) 6.3 ng/mL <10.0 HEPATITIS B CORE ANTIBODY, [id number] 20:44:00* Test Item Value Reference Range Interpretation Comments HEPATITIS B CORE IGM ANTIBODY (BEAKER) (test code = 645) Non reactive Nonreactive HEPATITIS A ANTIBODY, [id number] 20:44:00* Test Item Value Reference Range Interpretation [...] 2590) 40 % 20-5 5 BLOOD GAS, [id number] 20:25:00* Test Item Value Reference Range Interpretation [...] 1819) 100.0 % SPUTUM CULTURE + GRAM [id number] 19:38:00* Test Item Value Reference Range Interpretation Comments CULTURE (BEAKER) (test code = 1095) <1+ Normal respiratory chase pr esent GRAM STAIN RESULT (BEAKER) (test code = 1123) 1+ White blood cells seen GRAM STAIN RESULT (BEAKER) (test code = 76711) 0-5 epithelial cells GRAM STAIN RESULT (BEAKER) (test code = 65401) <1+ gram negative ro ds URINALYSIS W/ REFLEX URINE [id number] 18:20:00* Test Item Value Reference Range Interpretation [...] SOURCE(BEAKER) (test code = 2795) BLOOD GAS, [id number] 17:17:00* Test Item Value Reference Range Interpretation [...] (BEAKER) (test code = 1819) 60.0 % JVLIO-2-[id number] 16:17:00* Test Item Value Reference Range Interpretation Comments ALPHA-1 ANTITRYPSIN (BEAKER) (test code = 502) > mg/dL 90.00-2 00.00 H [id number] 14:26:00* Test Item Value Reference Range Interpretation Comments MAGNESIUM (BEAKER) (test code = 627) 2.0 mg/dL 1.6-2.6 BASIC METABOLIC [id number] 14:26:00* Test Item Value Reference Range Interpretation [...] FOR DIALYSIS PATIENTS. Specimen markedly ictericBLOOD GAS, [id number] 13:25:00* Test Item Value Reference Range Interpretation [...] code = 1819) 40.0 % VANCOMYCIN LEVEL, [id number] 11:06:00* Test Item Value Reference Range Interpretation Comments VANCOMYCIN TROUGH (BEAKER) (test code = 522) 45.6 ug/mL 10.0-20.0 HH BLOOD GAS, [id number] 09:54:00* Test Item Value Reference Range Interpretation [...] 40.0 % RAD, CHEST, 1 VIEW, NON [id number] 05:04:00Reason for exam:->ARDSFINAL REPORT Chest one view. [...] pleural effusion or pneum othorax. Signed: Nicolás Ceballosort Verified Date/Time: 06/03/2018 05:04:55 Reading Location: [facility] B1 C013Y CT Body Reading Room REHENSIVE [...] 700) 405 pg/mL 0-100 H LACTIC ACID, [id number] 04:01:00* Test Item Value Reference Range Interpretation Comments LACTATE BLOOD ARTERIAL (2) (BEAKER) (test code = 2874) 0.7 mmol/L 0.5-2.2 Specimen moderately ictericCBC W/PLT COUNT & AUTO [id number] 03:57:00* Test Item Value Reference Range Interpretation [...] code = 2801) 3 % 0-1 H [id number] 03:48:00* Test Item Value Reference Range Interpretation Comments FIBRINOGEN LEVEL (BEAKER) (test code = 658) 644 mg/dl 225-434 H PT/[id number] 03:48:00* Test Item Value Reference Range Interpretation [...] pat ients with mechanical heart valves.BLOOD GAS, [id number] 03:36:00* Test Item Value Reference Range Interpretation [...] (test code = 1819) 40.0 % POCT-GLUCOSE [id number] 02:21:00* Test Item Value Reference Range Interpretation Comments POC-GLUCOSE METER (BEAKER) (test code = 1538) 225 mg/dL 70-[address] [facility] [address] [place] [address] [id number] 21:48:00* Test Item Value Reference Range Interpretation Comments MAGNESIUM (BEAKER) (test code = 627) 2.2 mg/dL 1.6-2.6 BASIC METABOLIC [id number] 21:48:00* Test Item Value Reference Range Interpretation [...] NOT APPLICABLE FOR DIALYSIS PATIENTS. Specimen markedly [id number] 17:35:00* Test Item Value Reference Range Interpretation Comments MAGNESIUM (BEAKER) (test code = 627) 2.8 mg/dL 1.6-2.6 H Specimen moderately hemolyzed [id number] 17:35:00* Test Item Value Reference Range Interpretation Comments POTASSIUM (BEAKER) (test code = 379) 4.5 meq/L 3.5-5.1 Specimen moderately hemolyzed [id number] 15:15:00* Test Item Value Reference Range Interpretation Comments PROCALCITONIN (BEAKER) (test code = 3036) 1.58 ng/mL <0.05 H SEPSIS RISK (ng/mL)Low: 0.05-0.50Intermediate: 0.51-2.00High: > =2.01B-TYPE NATRIURETIC FACTOR (BNP)2018-06-02 14:09:00* Test Item Value Reference Range Interpretation Comments B-TYPE NATRIURETIC PEPTIDE (BEAKER) (test code = 700) 286 pg/mL 0-100 H [id number] 13:51:00* Test Item Value Reference Range Interpretation Comments PARTIAL THROMBOPLASTIN TIME (BEAKER) (test code = 760) 42.9 seconds 22.5-36.0 H PROTHROMBIN TIME/[id number] 13:50:00* Test Item Value Reference Range Interpretation [...] pat ients with mechanical heart valves.BLOOD GAS, [id number] 13:33:00* Test Item Value Reference Range Interpretation [...] (test code = 1819) 40.0 % GLUCOSE-STAT [id number] 13:33:00* Test Item Value Reference Range Interpretation Comments GLUCOSE RANDOM (BEAKER) (test code = 652) 174 mg/dL 70-110 H TSH/FREE T4 IF [id number] 07:15:00* Test Item Value Reference Range Interpretation Comments THYROID STIMULATING HORMONE (BEAKER) (test code = 772) 1.76 uIU/mL 0.35-4.94 COMPREHENSIVE METABOLIC [id number] 03:52:00* Test Item Value Reference Range Interpretation [...] Specimen markedly ictericRAD, CHEST, 1 VIEW, NON [id number] 03:35:00Reason for exam:->ARDSFINAL REPORT Chest one view. [...] Ceballos Verified Date/Time: 06/02/2018 03:35:13 Reading Location: [facility] B1 C013Y CT Body Reading Room /[id number] 03:12:00* Test Item Value Reference Range Interpretation [...] 2.5-3.5 for pat ients with mechanical heart valves.[id number] 03:03:00* Test Item Value Reference Range Interpretation Comments FIBRINOGEN LEVEL (BEAKER) (test code = 658) 695 mg/dl 225-434 H LACTIC ACID, [id number] 03:02:00* Test Item Value Reference Range Interpretation Comments LACTATE BLOOD ARTERIAL (2) (BEAKER) (test code = 2874) 0.7 mmol/L 0.5-2.2 Specimen markedly ictericCBC W/PLT COUNT & AUTO [id number] 02:53:00 * Test Item Value Reference Range [...] 2801) 2 % 0-1 H BLOOD GAS, [id number] 02:53:00* Test Item Value Reference Range Interpretation [...] code = 1819) 60.0 % BLOOD GAS, [id number] 00:24:00* Test Item Value Reference Range Interpretation [...] code = 1819) 60.0 % BASIC METABOLIC [id number] 17:38:00* Test Item Value Reference Range Interpretation [...] FOR DIALYSIS PATIENTS. Specimen markedly ictericBLOOD GAS, [id number] 17:10:00* Test Item Value Reference Range Interpretation [...] (test code = 1819) 60.0 % Blood [id number] 17:08:00* Test Item Value Reference Range Interpretation Comments Blood Culture (test code = 31881462) NO GROWTH AFTER 5 DAYS, FINAL REPORT [facility], ABDOMINAL, [id number] 15:11:00Abdomen limited area? Add comment if clarification [...] MDReport Verified Date/Time: 06/01/2018 15:11:50 Reading Location: [facility] C013X Ortho Consult Reading Room A GLUTAMYL TRANSFERASE (GGT) 2018-06-01 14:41:00* Test Item Value Reference Range Interpretation Comments GAMMA GLUTAMYL TRANSFERASE (BEAKER) (test code = 364) 136 U/L 9-64 H Specimen markedly ictericBLOOD GAS, [id number] 14:18:00* Test Item Value Reference Range Interpretation [...] = 1819) 60.0 % CT, CHEST, WITHOUT [id number] 13:38:00FINAL REPORT TECHNIQUE: CT of the chest, [...] rt Verified Date/Time: 06/01/2018 13:38:09 Reading Location: [facility] C013X [facility] Consult Reading Room Electronically signed by: KYLE RAE MD on 07/2018 01:[address], [id number] 13:38:00FINAL REPORT TECHNIQUE: CT of the chest, [...] rt Verified Date/Time: 06/01/2018 13:38:09 Reading Location: [address] Consult Reading Room Electronically signed by: KYLE RAE MD on 07/2018 01:[address], BRAIN, WITHOUT [id number] 13:10:00FINAL REPORT CT, BRAIN, WITHOUT CONTRAST CLINICAL [...] Verified Date/Time: 06/01/2018 13:10:29 Reading Lo cation: [facility] B1 C013V Neuro Reading Room D GAS, [id number] 11:45:00* Test Item Value Reference Range Interpretation [...] 1819) 80.0 % URINALYSIS W/ REFLEX URINE [id number] 11:13:00* Test Item Value Reference Range Interpretation [...] 1414) 16.4 % 0.0-5.0 H COMPREHENSIVE METABOLIC [id number] 10:13:00* Test Item Value Reference Range Interpretation [...] 248 U/L 125-2 20 H HEPATIC FUNCTION [id number] 09:21:00* Test Item Value Reference Range Interpretation [...] = 347) 32 U/L 6-55 Specimen markedly [id number] 09:20:00* Test Item Value Reference Range Interpretation Comments FIBRINOGEN LEVEL (BEAKER) (test code = 658) 729 mg/dl 225-434 H PT/[id number] 09:20:00* Test Item Value Reference Range Interpretation [...] 2.5-3.5 for pat ients with mechanical heart valves.[id number] 09:20:00* Test Item Value Reference Range Interpretation Comments PHOSPHORUS (BEAKER) (test code = 604) 3.9 mg/dL 2.3-4.7 [id number] 09:20:00* Test Item Value Reference Range Interpretation Comments MAGNESIUM (BEAKER) (test code = 627) 2.3 mg/dL 1.6-2.6 LACTIC ACID, [id number] 09:17:00* Test Item Value Reference Range Interpretation Comments LACTATE BLOOD ARTERIAL (2) (BEAKER) (test code = 2874) 0.7 mmol/L 0.5-2.2 Specimen markedly ictericCBC W/PLT COUNT & AUTO [id number] 09:13:00 * Test Item Value Reference Range [...] 2801) 3 % 0-1 H OXYGEN SATURATION, [id number] 09:07:00* Test Item Value Reference Range Interpretation Comments O2 SATURATION (MEASURED) (BEAKER) (test code = 1455) 80.9 % CALCIUM, [id number] 09:06:00* Test Item Value Reference Range Interpretation Comments CALCIUM IONIZED (BEAKER) (test code = 698) 1.01 mmol/L 1.12-1.27 L PH, BLOOD (BEAKER) (test code = 1810) 7.40 BLOOD GAS, [id number] 09:05:00* Test Item Value Reference Range Interpretation [...] code = 1819) 100.0 % SODIUM NA-STAT [id number] 09:05:00* Test Item Value Reference Range Interpretation Comments SODIUM (BEAKER) (test code = 381) 127 meq/L 135-148 L GLUCOSE-STAT [id number] 09:05:00* Test Item Value Reference Range Interpretation Comments GLUCOSE RANDOM (BEAKER) (test code = 652) 181 mg/dL 70-110 H HGB/HCT (H&H) - STAT [id number] 09:05:00* Test Item Value Reference Range Interpretation Comments HEMOGLOBIN (BEAKER) (test code = 410) 10.4 g/dL 13.0-16.8 L HEMATOCRIT (BEAKER) (test code = 411) 31.0 % 40.0-50.0 L POTASSIUM-STAT [id number] 09:02:00* Test Item Value Reference Range Interpretation Comments POTASSIUM (BEAKER) (test code = 379) 4.6 meq/L 3.6-5.5 RAD, CHEST, 1 VIEW, NON [id number] 08:51:00Reason for exam:->ARFShould this be performed at [...] MDReport Verified Date/Time: 06/01/2018 08:51:32 Reading Location: [address] Neuro Reading Room D GAS, [id number] 08:32:00* Test Item Value Reference Range Interpretation [...] code = 1819) 100.0 % SODIUM NA-STAT [id number] 08:32:00* Test Item Value Reference Range Interpretation Comments SODIUM (BEAKER) (test code = 381) 127 meq/L 135-148 L GLUCOSE-STAT [id number] 08:32:00* Test Item Value Reference Range Interpretation Comments GLUCOSE RANDOM (BEAKER) (test code = 652) 171 mg/dL 70-110 H HGB/HCT (H&H) - STAT [id number] 08:32:00* Test Item Value Reference Range Interpretation Comments HEMOGLOBIN (BEAKER) (test code = 410) 10.5 g/dL 13.0-16.8 L HEMATOCRIT (BEAKER) (test code = 411) 31.0 % 40.0-50.0 L CALCIUM, [id number] 08:32:00* Test Item Value Reference Range Interpretation Comments CALCIUM IONIZED (BEAKER) (test code = 698) 1.00 mmol/L 1.12-1.27 L PH, BLOOD (BEAKER) (test code = 1810) 7.43 POTASSIUM-STAT [id number] 08:30:00* Test Item Value Reference Range Interpretation Comments POTASSIUM (BEAKER) (test code = 379) 5.4 meq/L 3.6-5.5 Sodium [id number] 03:33:00* Test Item Value Reference Range Interpretation Comments Sodium Level (test code = 2951-2) 130 136-145 L [facility] CenterPotassium [id number] 03:33:00* Test Item Value Reference Range Interpretation Comments Potassium Level (test code = 2823-3) 5.1 3.5-5.1 SPECIMEN SLIGHTLY ICTERICNorth [facility] Medical CenterChloride Level 2018-06-01 03:33:00* Test Item Value Reference Range Interpretation Comments Chloride Level (test code = 2075-0) 93 98-107 L [facility] CenterCarbon Dioxide [id number] 03:33:00* Test Item Value Reference Range Interpretation Comments Carbon Dioxide Level (test code = 2028-9) 25 22-29 [facility] CenterAn[facility] [id number] 03:33:00* Test Item Value Reference Range Interpretation Comments Anion Gap (test code = 37822-9) 17.1 8-16 H [facility] CenterBlood Urea [id number] 03:33:00* Test Item Value Reference Range Interpretation Comments Blood Urea Nitrogen (test code = 3094-0) 25 7-26 VERIFIED PREVIOUS RESULTSNorth [place] Medical CenterCreatinine 2018-06-01 03:33:00* Test Item Value Reference Range Interpretation Comments Creatinine (test code = 2160-0) 1.47 0.72-1.25 H [place] [facility] CenterBUN/Creatinine Plilc6188-79-30 03:33:00* Test Item Value Reference Range Interpretation Comments BUN/Creatinine Ratio (test code = 3097-3) 17 6-25 [facility] [place] [facility] CenterEstimat Glomerular Filtration Rate 2018-06-01 03:33:00* Test Item Value Reference Range Interpretation Comments Estimat Glomerular Filtration Rate (test code = 365155225) 53 >60 L Ranges were taken from the National Kidney Disease Education Program and the [facility] Kidney Foundation literature.Reference ranges:60 or greater: Nodept53-56 ( for 3 consecutive months): Chronic kidney disease 15 or less: Kidney failureNorth Texas Medical CenterGlucose Phmvm6926-89-45 03:33:00* Test Item Value Reference Range Interpretation Comments Glucose Level (test code = WIX2113) 160 74-118 H [facility] [place] [facility] CenterCalcium Jkgrr4092-93-66 03:33:00* Test Item Value Reference Range Interpretation Comments Calcium Level (test code = 37153-2) 8.1 8.4-10.2 L [facility] [place] [facility] CenterMagnesium Eicys2292-91-02 03:33:00* Test Item Value Reference Range Interpretation Comments Magnesium Level (test code = 22498-6) 2.3 1.3-2.1 H [facility] [place] [facility] CenterMagnesium Gtusb7182-22-35 03:33:00* Test Item Value Reference Range Interpretation Comments Magnesium Level (test code = 89835-1) 2.3 1.3-2.1 H [place] [facility] CenterWhite Blood Cwgvf7725-80-86 03:21:00* Test Item Value Reference Range Interpretation Comments White Blood Count (test code = 6690-2) 20.59 4.8-10.8 H [facility] [place] [facility] CenterRed Blood Uqkvj6113-98-72 03:21:00* Test Item Value Reference Range Interpretation Comments Red Blood Count (test code = 789-8) 2.65 4.3-5.7 L [facility] [place] [facility] CenterHemoglobin2019-04-06 03:21:00* Test Item Value Reference Range Interpretation Comments Hemoglobin (test code = 90725-3) 9.6 14.0-18.0 L [facility] [place] [facility] CenterHematocrit2019-04-06 03:21:00* Test Item Value Reference Range Interpretation Comments Hematocrit (test code = 4544-3) 29.1 38.2-49.6 L [facility] [place] [facility] CenterMean Corpuscular Eucfdy4820-23-46 03:21:00* Test Item Value Reference Range Interpretation Comments Mean Corpuscular Volume (test code = 787-2) 109.8 81-99 H [facility] [place] [facility] CenterMean Corpuscular Rlslxmneoa7431-72-88 03:21:00* Test Item Value Reference Range Interpretation Comments Mean Corpuscular Hemoglobin (test code = 785-6) 36.2 28-32 H [facility] [place] [facility] CenterMean Corpuscular Hemoglobin Concent 2018-06-01 03:21:00* Test Item Value Reference Range Interpretation Comments Mean Corpuscular Hemoglobin Concent (test code = 786-4) 33.0 31-35 [facility] [place] [facility] CenterRed Cell Distribution Jxcqd1414-47-48 03:21:00* Test Item Value Reference Range Interpretation Comments Red Cell Distribution Width (test code = 28247-4) 13.3 11.7 -14.4 [facility] [place] [facility] CenterPlatelet Wwiww5571-60-35 03:21:00* Test Item Value Reference Range Interpretation Comments Platelet Count (test code = 777-3) 321 140-360 [facility] [place] [facility] CenterNeutrophils (%) (Auto)2018-06-01 03:21:00 * Test Item Value Reference Range Interpretation Comments Neutrophils (%) (Auto) (test code = 43480-6) 91.1 38.7-80.0 H [place] [facility] CenterLymphocytes (%) (Auto)2018-06-01 03:21:00 * Test Item Value Reference Range Interpretation Comments Lymphocytes (%) (Auto) (test code = 736-9) 3.4 18.0-39.1 L [facility] [place] [facility] CenterMonocytes (%) (Auto)2018-06-01 03:21:00* Test Item Value Reference Range Interpretation Comments Monocytes (%) (Auto) (test code = 5905-5) 2.9 4.4-11.3 L [facility] [place] [facility] CenterEosinophils (%) (Auto)2018-06-01 03:21:00 * Test Item Value Reference Range Interpretation Comments Eosinophils (%) (Auto) (test code = 713-8) 0.0 0.0-6.0 [facility] [place] [facility] CenterBasophils (%) (Auto)2018-06-01 03:21:00* Test Item Value Reference Range Interpretation Comments Basophils (%) (Auto) (test code = 706-2) 0.2 0.0-1.0 [place] [facility] CenterIM GRANULOCYTES %2018-06-01 03:21:00* Test Item Value Reference Range Interpretation Comments IM GRANULOCYTES % (test code = IM GRANULOCYTES %) 2.4 0.0- 1.0 H [place] [facility] CenterNeutrophils # (Auto)2018-06-01 03:21:00* Test Item Value Reference Range Interpretation Comments Neutrophils # (Auto) (test code = 751-8) 18.8 2.1-6.9 H [place] [facility] CenterLymphocytes # (Auto)2018-06-01 03:21:00* Test Item Value Reference Range Interpretation Comments Lymphocytes # (Auto) (test code = 92292-7) 0.7 1.0-3.2 L [facility] [place] [facility] CenterMonocytes # (Auto)2018-06-01 03:21:00* Test Item Value Reference Range Interpretation Comments Monocytes # (Auto) (test code = 742-7) 0.6 0.2-0.8 [facility] [place] [facility] CenterEosinophils # (Auto)2018-06-01 03:21:00* Test Item Value Reference Range Interpretation Comments Eosinophils # (Auto) (test code = 711-2) 0.0 0.0-0.4 [facility] [place] [facility] CenterBasophils # (Auto)2018-06-01 03:21:00* Test Item Value Reference Range Interpretation Comments Basophils # (Auto) (test code = 704-7) 0.1 0.0-0.1 [facility] [place] [facility] CenterAbsolute Immature Granulocyte (auto 2018-06-01 03:21:00* Test Item Value Reference Range Interpretation Comments Absolute Immature Granulocyte (auto (doug t code = Absolute Immature Granulocyte (auto) 0.49 0-0.1 H [place] [facility] CenterAr[facility] Blood fR5769-69-27 00:17:00* Test Item Value Reference Range Interpretation Comments Arterial Blood pH (test code = 2744-1) 7.34 7.31-7.41 [place] [facility] CenterArterial Blood Partial Pressure CO2 2018-06-01 00:17:00* Test Item Value Reference Range Interpretation Comments Arterial Blood Partial Pressure CO2 (test code = 2018-8) 49 41-51 [place] [facility] CenterArterial Blood Partial Pressure O2 2018-06-01 00:17:00* Test Item Value Reference Range Interpretation Comments Arterial Blood Partial Pressure O2 (test code = 2018-8) 77 80-105 L [facility] Blood UWS64211-14-07 00:17:00* Test Item Value Reference Range Interpretation Comments Arterial Blood HCO3 (test code = 1960-4) 27 23-28 [place] [facility] CenterArterial Blood Base Asyoyu9058-97-32 00:17:00* Test Item Value Reference Range Interpretation Comments Arterial Blood Base Excess (test code = 1925-7) 1.0 -2-3 [place] [facility] CenterArterial Blood Oxygen Saturation 2018-06-01 00:17:00* Test Item Value Reference Range Interpretation Comments Arterial Blood Oxygen Saturation (test code = 2708-6) 94.0 95-98 L [place] [facility] CenterFiO22019-04-06 00:17:00* Test Item Value Reference Range Interpretation Comments FiO2 (test code = FiO2) 85 PT. ON PRVC 16, 440 +12 85[facility] [place] [facility] CenterArterial Blood eN3737-80-98 00:17:00* Test Item Value Reference Range Interpretation Comments Arterial Blood pH (test code = 2744-1) 7.34 7.31-7.41 [place] [facility] CenterArterial Blood Partial Pressure CO2 2018-06-01 00:17:00* Test Item Value Reference Range Interpretation Comments Arterial Blood Partial Pressure CO2 (test code = 2018-09) 49 41-51 [place] [facility] CenterArterial Blood Partial Pressure O2 2018-06-01 00:17:00* Test Item Value Reference Range Interpretation Comments Arterial Blood Partial Pressure O2 (test code = 2018-09) 77 80-105 L [place] [facility] CenterArterial Blood IHK06162-24-86 00:17:00* Test Item Value Reference Range Interpretation Comments Arterial Blood HCO3 (test code = 1960-4) 27 23-28 [facility] [place] [facility] CenterArterial Blood Base Jreztj0716-80-52 00:17:00* Test Item Value Reference Range Interpretation Comments Arterial Blood Base Excess (test code = 1925-7) 1.0 -2-3 [facility] [place] [facility] CenterArterial Blood Oxygen Saturation 2018-06-01 00:17:00* Test Item Value Reference Range Interpretation Comments Arterial Blood Oxygen Saturation (test code = 2708-6) 94.0 95-98 L [place] [facility] CenterFiO22019-04-06 00:17:00* Test Item Value Reference Range Interpretation Comments FiO2 (test code = FiO2) 85 PT. ON PRVC 16, 440 +12 85[facility] [place] Medical CenterCT CHEST W 2018-05-31 15:20:00 [facility] [address] [place] [address] Patient Name: INDRA GALVAN MR #: [id number] : 1980 Age/Sex: 37/M Req #: [id number] Adm Physician: KIET DUMAS MD Ordered by: DAVID HORTON Report #: [id number] Location: ICU Room/Bed: ICU [facility] Procedure: 0405-[address]/CT CHEST W Exam Date: 05/31/18 Exam Time: 1430 REPORT STATUS: Signed CT chest pulmonary embolism protocol CPT code: 40684 INDICATION: Intubated, ev aluate for pulmonary embolus; suspected infection f/u [id number] 1430 TECHNIQUE: Thin collimation axial images obtained through [...] 1537 COPY TO: DAVID HORTON Hepatitis Be Vjwmepzl4358-67-05 08:40:00* Test Item Value Reference Range Interpretation Comments Hepatitis Be Antibody (test code = 95383-3) Negative Negative Performed at: [facility] [id number] Manager Occupational: Esdras Lemon MD, Phone: [phone] [place] Medical CenterHepatitis Be Oawkoqzj9629-92-18 08:40:00* Test Item Value Reference Range Interpretation Comments Hepatitis Be Antibody (test code = 48361-2) Negative Negative Performed at: [address] [id number] Manager Occupational: Esdras Lemon MD, Phone: [phone] [place] Medical CenterHIV-1 RNA, Quantitative copies/wF9677-57-89 08:39:00* Test Item Value Reference Range Interpretation Comments HIV-1 RNA, Quantitative copies/mL (test code = 36971-3) <20 . HIV-1 RNA not detectedThe reportable range for this assay is 20 to 10,000,000cop ies HIV-1 RNA/mL.[facility] [place] [facility] CenterHIV-1 RNA, Quantitative copies/eY1333-82-29 08:39:00* Test Item Value Reference Range Interpretation Comments HIV-1 RNA, Quantitative copies/mL (test code = 67748-6) <20 . HIV-1 RNA not detectedThe reportable range for this assay is 20 to 10,000,000cop ies HIV-1 RNA/mL.[facility] [place] [facility] CenterDifferential Total Cells Asiyxmp6338-25-79 07:07:00* Test Item Value Reference Range Interpretation Comments Differential Total Cells Counted (test code = Marcia marvin Total Cells Counted) 100 [facility] [place] [facility] CenterNeutrophils % (Manual)2018-05-31 07:07:00 * Test Item Value Reference Range Interpretation Comments Neutrophils % (Manual) (test code = 02083-9) 84 40-74 H [place] [facility] CenterLymphocytes % (Manual)2018-05-31 07:07:00 * Test Item Value Reference Range Interpretation Comments Lymphocytes % (Manual) (test code = 737-7) 3 19-48 L [facility] [place] [facility] CenterMonocytes % (Manual)2018-05-31 07:07:00* Test Item Value Reference Range Interpretation Comments Monocytes % (Manual) (test code = 744-3) 10 3.4-9.0 H [facility] [place] [facility] CenterEosinophils % (Manual)2018-05-31 07:07:00 * Test Item Value Reference Range Interpretation Comments Eosinophils % (Manual) (test code = 714-6) 3 0-7 [facility] [place] [facility] CenterPlatelet Ybczokjb9827-03-13 07:07:00* Test Item Value Reference Range Interpretation Comments Platelet Estimate (test code = 08049-1) ADEQUATE [facility] [place] [facility] CenterPlatelet Morphology Lmiqzut1446-92-00 07:07:00* Test Item Value Reference Range Interpretation Comments Platelet Morphology Comment (test code = 14665-3) NORMAL [facility] [place] [facility] CenterHypochromasia2019-04-05 07:07:00* Test Item Value Reference Range Interpretation Comments Hypochromasia (test code = 728-6) SLIGHT [facility] [place] [facility] CenterAnisocytosis2019-04-05 07:07:00* Test Item Value Reference Range Interpretation Comments Anisocytosis (test code = 702-1) MODERATE [facility] [place] [facility] CenterMacrocytosis2019-04-05 07:07:00* Test Item Value Reference Range Interpretation Comments Macrocytosis (test code = 738-5) MODERATE [facility] [place] [facility] CenterRed Cell Morphology Gtmoujw6277-65-05 07:07:00* Test Item Value Reference Range Interpretation Comments Red Cell Morphology Comment (test code = 6742-1) ABNORMAL [facility] [place] [facility] CenterDifferential Total Cells Counted 2018-05-31 07:07:00* Test Item Value Reference Range Interpretation Comments Differential Total Cells Counted (test code = Differgibran tial Total Cells Counted) 100 [facility] [place] [facility] CenterNeutrophils % (Manual)2018-05-31 07:07:00 * Test Item Value Reference Range Interpretation Comments Neutrophils % (Manual) (test code = 00783-7) 84 40-74 H [place] [facility] CenterLymphocytes % (Manual)2018-05-31 07:07:00 * Test Item Value Reference Range Interpretation Comments Lymphocytes % (Manual) (test code = 737-7) 3 19-48 L [place] [facility] CenterMonocytes % (Manual)2018-05-31 07:07:00* Test Item Value Reference Range Interpretation Comments Monocytes % (Manual) (test code = 744-3) 10 3.4-9.0 H [place] [facility] CenterEosinophils % (Manual)2018-05-31 07:07:00 * Test Item Value Reference Range Interpretation Comments Eosinophils % (Manual) (test code = 714-6) 3 0-7 [facility] [place] [facility] CenterPlatelet Mdgdbryy1972-11-83 07:07:00* Test Item Value Reference Range Interpretation Comments Platelet Estimate (test code = 78461-3) ADEQUATE [place] [facility] CenterPlatelet Morphology Nnlhthk2737-78-03 07:07:00* Test Item Value Reference Range Interpretation Comments Platelet Morphology Comment (test code = 39408-4) NORMAL [facility] [place] [facility] CenterHypochromasia2019-04-05 07:07:00* Test Item Value Reference Range Interpretation Comments Hypochromasia (test code = 728-6) SLIGHT [facility] [place] [facility] CenterAnisocytosis2019-04-05 07:07:00* Test Item Value Reference Range Interpretation Comments Anisocytosis (test code = 702-1) MODERATE [facility] [place] [facility] CenterMacrocytosis2019-04-05 07:07:00* Test Item Value Reference Range Interpretation Comments Macrocytosis (test code = 738-5) MODERATE [facility] [place] [facility] CenterRed Cell Morphology Ndfsfhw6055-98-75 07:07:00* Test Item Value Reference Range Interpretation Comments Red Cell Morphology Comment (test code = 6742-1) ABNORMAL [facility] [place] [facility] CenterTotal Wtcosunlf2225-50-39 06:43:00* Test Item Value Reference Range Interpretation Comments Total Bilirubin (test code = 1975-2) 17.5 0.2-1.2 H [place] [facility] CenterAspartate Amino Transf (AST/SGOT) 2018-05-31 06:43:00* Test Item Value Reference Range Interpretation Comments Aspartate Amino Transf (AST/SGOT) (test code = Aspartate Amino Transf (AST/SGOT)) 97 5-34 H [facility] [place] [facility] CenterAlanine Aminotransferase (ALT/SGPT) 2018-05-31 06:43:00* Test Item Value Reference Range Interpretation Comments Alanine Aminotransferase (ALT/SGPT) (test code = 1742-6) 28 0-55 [facility] [place] [facility] CenterTotal Zbemqlr3634-75-34 06:43:00* Test Item Value Reference Range Interpretation Comments Total Protein (test code = 2885-2) 6.1 6.5-8.1 L [facility] [place] [facility] CenterAlbumin2019-04-05 06:43:00* Test Item Value Reference Range Interpretation Comments Albumin (test code = 1751-7) 1.7 3.5-5.0 L [facility] [place] [facility] CenterGlobulin2019-04-05 06:43:00* Test Item Value Reference Range Interpretation Comments Globulin (test code = 20806-2) 4.4 2.3-3.5 H [facility] [place] [facility] CenterAlbumin/Globulin Bgixr3877-55-47 06:43:00 * Test Item Value Reference Range Interpretation Comments Albumin/Globulin Ratio (test code = 1759-0) 0.4 0.8-2.0 L [facility] [place] [facility] CenterAlkaline Evctiqlqpsb2021-01-88 06:43:00* Test Item Value Reference Range Interpretation Comments Alkaline Phosphatase (test code = 6768-6) 149 40-150 [place] [facility] CenterCHEST SINGLE (PORTABLE)2018-05-31 05:31:00 [place] [address] Patient Name: INDRA GALVAN MR #: [id number] : 1980 Age/Sex: 37/M Req #: [id number] Adm Physician: KIET DUMAS MD Ordered by: MANDEEP MARIE MD Report #: [id number] Location: ICU Room/Bed: ICU [facility] Procedure: 0405-000 3 DX/CHEST SINGLE (PORTABLE) Exam [...] 05/31/18531 COPY TO: MANDEEP MARIE MD Urine Ynvytfnelc0735-59-63 01:57:00* Test Item Value Reference Range Interpretation Comments Urine Osmolality (test code = 2695-5) 353 . 24 hr : 300 - 900 Random: 50 - 1400 After 12hr fluid restriction: >850Performed at: HD - [facility] [address] [id number] Director: Alli Georges MD, Phone: [phone] [place] Medical CenterUrine Osmolality 2018-05-31 01:57:00* Test Item Value Reference Range Interpretation Comments Urine Osmolality (test code = 2695-5) 353 . 24 hr : 300 - 900 Random: 50 - 1400 After 12hr fluid restriction: >850Performed at: HD - [facility] [address] [id number] Director: Alli Georges MD, Phone: [phone] [place] Medical CenterIR OVFVUNH1924-98-12 17:22:00 [place] [address] Patient Name: INDRA GALVAN MR #: [id number] : 1980 Age/Sex: 37/M Req #: [id number] Adm Physician: KIET DUMAS MD Ordered by: MANDEEP MARIE MD Report #: [id number] Location: ICU Room/Bed: ICU 190-1 Procedure: 0404-004 [...] a 0.018 " skinny wire. A 5 Luxembourger micropuncture sheat h was then placed and through the micropuncture sheath a 0.035 " Amplatz super stiff wire placed centrally. Dilatation with a 7 Luxembourger Rajesh dilator was a ccomplished. A 7 Luxembourger Arrow triple-lumen 20 cm long central line was then pl aced over the Amplatz wire. Each lumen was flushed with saline. Catheter se cured to the skin with 3-0 Ethilon. Post procedure chest x-ray was ordere d. Impression: Successful placement of a triple-lumen central line. Signed by: Dr. Kandi Anand DO on 05/30/2018 5:31 PM Dictated By: Randall ANAND DO [address] anscribed By: CATERINA on 05/30/18 173 COPY TO: MANDEEP MARIE MD NON-TUNNELLED CVC CATH PLVYZLA4277-88-92 17:22:[address] [place] [address] Patient Name: INDRA GALVAN MR #: [id number] : 1980 Age/Sex: 37/M Req #: [id number] Adm Physician: KIET DUMAS MD Ordered by: MANDEEP MARIE MD Report #: [id number] Location: ICU Room/Bed: ICU [facility] Procedure: 0404-000 3 IR/NON-TUNNELLED CVC CATH PLACMNT [...] 0.018 " skinny wire . A 5 Luxembourger micropuncture sheath was then placed and through the micropunctur e sheath a 0.035 " Amplatz superstiff wire placed centrally. Dilatation with a 7 Luxembourger Rajesh dilator was accomplished. A 7 Luxembourger Arrow triple-lumen 20 cm long central line was then placed over the Amplatz wire. Each lumen was flushed with saline. Catheter secured to the skin with 3-0 Ethilon. Post procedure chest x-ray was ordered. Impression: Successful placement of a triple-lumen central line. Signed by: Dr. Kandi Anand DO on 05/31/19 5:31 PM Dictated By: KANDI ANAND DO 30 Transcribed By: CATERINA on 05/30/181730 [employer] Y TO: MANDEEP MARIE MD US GUIDANCE FOR VASCULAR HYZIM3925-94-85 17:22:00 [place] [address] Patient Name: INDRA GALVAN MR #: [id number] : 1980 Age/Sex: 37/M Req #: [id number] Adm Physician: KIET DUMAS MD Ordered by: MANDEEP MARIE MD Report #: [id number] Location: ICU Room/Bed: ICU [facility] Procedure: 0404-001 8 US/US GUIDANCE FOR VASCULAR [...] 0.018 " skinny wire . A 5 Luxembourger micropuncture sheath was then placed and through the micropunctur e sheath a 0.035 " Amplatz superstiff wire placed centrally. Dilatation with a 7 Luxembourger Rajesh dilator was accomplished. A 7 Luxembourger Arrow triple-lumen 20 cm long central line was then placed over the Amplatz wire. Each lumen was flushed with saline. Catheter secured to the skin with 3-0 Ethilon. Post procedure chest x-ray was ordered. Impression: Successful placement of a triple-lumen central line. Signed by: Dr. Kandi Anand DO on 05/31/19 5:31 PM Dictated By: KANDI ANAND DO 30 Transcribed By: CATERINA on 05/30/181730 [employer] COACH Y TO: MANDEEP MARIE MD Blood Frtwyru3309-32-68 17:10:00* Test Item Value Reference Range Interpretation Comments Blood Culture (test code = 62077301) NO GROWTH AFTER 72 HOURS [facility] XRAY LINE WZYYMGDZY1288-97-63 15:38:00 [place] [address] Patient Name: INDRA GALVAN MR #: [id number] : 1980 Age/Sex: 37/M Req #: [id number] Adm Physician: KIET DUMAS MD Ordered by: KANDI ANAND DO Report #: [id number] Location: ICU Room/Bed: ICU [facility] Procedure: [id number] DX/CHEST XRAY LINE PLACEMENT Exam Date: Exam Time: REPORT STATUS: Signed EXAM: [facility] ST XRAY LINE PLACEMENT, AP Portable DATE: [...] KANDI ANAND DO CHEST SINGLE (PORTABLE)2018-05-30 14:49:00 [place] [address] Patient Name: INDRA GALVAN MR #: [id number] : [birth year] Age/Sex: 37/M Req #: [id number] Adm Physician: KIET DUMAS MD Ordered by: MARITZA SANTANA MD Report #: [id number] Location: ICU Room/Bed: ICU [facility] Procedure: [id number] DX/CHEST SINGLE (PORTABLE) Exam Date: 05/30/18 Exam [...] COPY TO: MARITZA SANTANA MD Urine Legionella Uvhqzqg8988-68-60 12:08:00* Test Item Value Reference Range Interpretation Comments Urine Legionella Antigen (test code = 98264-5) Negative Negativ e Presumptive negative for L. pneumophila serogroup 1 antigenin urine, suggesting no recent or current infection.Legionnaires' disease cannot be ruled out since o therserogroups and species may also cause disease.Performed at: [facility] [address] [place], [place] [id number] Director: Esdras Lemon MD, Phone: [phone] [place] Medical CenterUrine Legionella Bjfdpgi7493-47-01 12:08:00* Test Item Value Reference Range Interpretation Comments Urine Legionella Antigen (test code = 32490-8) Negative Negativ e Presumptive negative for L. pneumophila serogroup 1 antigenin urine, suggesting no recent or current infection.Legionnaires' disease cannot be ruled out since o therserogroups and species may also cause disease.Performed at: [facility] [address] [place], [place] [id number] Director: Esdras Lemon MD, Phone: [phone] [place] Medical CenterHepatitis C Xivdnuvg6118-66-35 11:20:00* Test Item Value Reference Range Interpretation Comments Hepatitis C Antibody (test code = 00074-8) 0.1 0.0-0.9 Negative: < 0.8 Indeterminate: 0.8 - 0.9 Positive: > 0.9 The CDC recommends that a positive HCV antibody result be followed up with a HCV Nucleic Acid Amplification test (834728).Performed at: [facility] [address] [place], [place] [id number] Director: Alli Georges MD, Phone: [phone] [place] Medical CenterHepatitis C Bjfnirum2842-06-47 11:20:00* Test Item Value Reference Range Interpretation Comments Hepatitis C Antibody (test code = 42076-0) 0.1 0.0-0.9 Negative: < 0.8 Indeterminate: 0.8 - 0.9 Positive: > 0.9 The CDC recommends that a positive HCV antibody result be followed up with a HCV Nucleic Acid Amplification test (379305).Performed at: [facility] [address] [place], [place] [id number] Director: Alli Georges MD, Phone: [phone] [place] Medical CenterUrine POY0904-02-70 11:03:00* Test Item Value Reference Range Interpretation Comments Urine WBC (test code = 5821-4) 11-20 0-5 H [facility] [place] [facility] CenterUrine GBA6974-05-08 11:03:00* Test Item Value Reference Range Interpretation Comments Urine RBC (test code = 24152-9) NONE 0-5 [facility] [place] [facility] CenterUrine Uerfjgbp0107-14-03 11:03:00* Test Item Value Reference Range Interpretation Comments Urine Bacteria (test code = 08583-5) FEW NONE [facility] [place] [facility] CenterUrine Epithelial Hczxy9084-17-40 11:03:00 * Test Item Value Reference Range Interpretation Comments Urine Epithelial Cells (test code = 07230-7) RARE NONE [facility] [place] [facility] CenterUrine Transitional Epithelial Cells 2018-05-30 11:03:00* Test Item Value Reference Range Interpretation Comments Urine Transitional Epithelial Cells (test code = 8249-5) FEW NONE [facility] [place] [facility] CenterUrine Transitional Epithelial Cells 2018-05-30 11:03:00* Test Item Value Reference Range Interpretation Comments Urine Transitional Epithelial Cells (test code = 8249-5) FEW NONE [facility] [place] [facility] CenterUrine Ghbaa1527-75-04 10:31:00* Test Item Value Reference Range Interpretation Comments Urine Color (test code = 5778-6) RED YELLOW H [facility] [place] [facility] CenterUrine Rcgadkl0738-65-31 10:31:00* Test Item Value Reference Range Interpretation Comments Urine Clarity (test code = 23422-4) SL CLOUDY CLEAR H [facility] [place] [facility] CenterUrine Specific Hmvpear2610-84-04 10:31:00 * Test Item Value Reference Range Interpretation Comments Urine Specific [place] (test code = 5811-5) 1.020 1.010-1.02 5 [facility] [place] [facility] CenterUrine lV6692-80-52 10:31:00* Test Item Value Reference Range Interpretation Comments Urine pH (test code = 45681-4) 6 5-7 [facility] [place] [facility] CenterUrine Leukocyte Qkwenkud8687-33-27 10:31:00* Test Item Value Reference Range Interpretation Comments Urine Leukocyte Esterase (test code = 5799-2) NEGATIVE NEGATIVE [facility] Nvnbtjf9884-20-71 10:31:00* Test Item Value Reference Range Interpretation Comments Urine Nitrite (test code = 84460-9) POSITIVE NEGATIVE H [facility] Mfdjlqm8006-45-70 10:31:00* Test Item Value Reference Range Interpretation Comments Urine Protein (test code = 5804-0) TRACE NEGATIVE [facility]2018-05-30 10:31:00* Test Item Value Reference Range Interpretation Comments Urine Glucose (UA) (test code = 2349-9) NEGATIVE NEGATIVE [facility] Esnxuoc4664-56-47 10:31:00* Test Item Value Reference Range Interpretation Comments Urine Ketones (test code = 91989-1) NEGATIVE NEGATIVE [facility] Qqbatamcyytm3302-47-99 10:31:00* Test Item Value Reference Range Interpretation Comments Urine Urobilinogen (test code = 22211-8) 1 0.2-1 [facility] Mfrpzkqqn1122-19-03 10:31:00* Test Item Value Reference Range Interpretation Comments Urine Bilirubin (test code = 1978-6) 3+ NEGATIVE H Confirmatory test currently unavailable. False positive results may occur.[facility] Eyrmg5608-48-80 10:31:00* Test Item Value Reference Range Interpretation Comments Urine Blood (test code = 77960-5) NEGATIVE NEGATIVE [facility] 08:07:00* Test Item Value Reference Range Interpretation Comments Folate (test code = 2284-8) 30.1 7.0-15.4 H [facility]2019-04-03 08:07:00* Test Item Value Reference Range Interpretation Comments Folate (test code = 2284-8) 30.1 7.0-15.4 H [facility] ([facility])2018-05-29 07:58:00 [facility] [address] [address] Patient Name: INDRA GALVAN MR #: [id number] : 1980 Age/Sex: 37/M Req #: [id number] Adm Physician: KIET DUMAS MD Ordered by: KIRT SCHULTZ MD Report #: [id number] Location: [facility]/SURG3 Room/Bed: [facility] Procedure: [id number] DX /CHEST SINGLE (PORTABLE) Exam Date: 05/29/18 [...] Comments Vitamin B12 Level (test code = 53404-7) 1700 213-816 H [facility]12 Mkroy0914-99-33 07:19:00* Test Item Value Reference Range Interpretation Comments Vitamin B12 Level (test code = 97640-1) 1700 213-816 H [facility]2019-04-03 07:07:00* Test Item Value Reference Range Interpretation Comments Iron Level (test code = 2498-4) 61 65-175 L [facility] Iron Binding Jzpbhyet4858-82-83 07:07:00* Test Item Value Reference Range Interpretation Comments Total Iron Binding Capacity (test code = 2500-7) 116 261-4 78 L [facility] CenterPercent Iron Citlqphgav6778-13-25 07:07:00* Test Item Value Reference Range Interpretation Comments Percent Iron Saturation (test code = 2502-3) 53 15-50 H [facility] CenterTransferrin2019-04-03 07:07:00* Test Item Value Reference Range Interpretation Comments Transferrin (test code = 3034-6) 83 174-364 L [facility] Ksaly9094-33-18 07:07:00* Test Item Value Reference Range Interpretation Comments Iron Level (test code = 2498-4) 61 65-175 L [facility] Iron Binding Ndrglenv2672-28-53 07:07:00* Test Item Value Reference Range Interpretation Comments Total Iron Binding Capacity (test code = 2500-7) 116 261-4 78 L [facility] CenterPercent Iron Vowdutprki5486-33-04 07:07:00* Test Item Value Reference Range Interpretation Comments Percent Iron Saturation (test code = 2502-3) 53 15-50 H [facility] CenterTransferrin2019-04-03 07:07:00* Test Item Value Reference Range Interpretation Comments Transferrin (test code = 3034-6) 83 174-364 L [facility] CenterMyelocytes %2018-05-29 07:06:00* Test Item Value Reference Range Interpretation Comments Myelocytes % (test code = 749-2) 1 0-0 H [facility] CenterMy[facility] %2018-05-29 07:06:00* Test Item Value Reference Range Interpretation Comments Myelocytes % (test code = 749-2) 1 0-0 H [facility] CenterPercent Reticulocyte Xxawy3740-05-51 06:26:00* Test Item Value Reference Range Interpretation Comments Percent Reticulocyte Count (test code = 33266-0) 6.4 0.8-2 .2 H [facility] CenterPercent Reticulocyte Kcaxg7727-40-49 06:26:00* Test Item Value Reference Range Interpretation Comments Percent Reticulocyte Count (test code = 23910-9) 6.4 0.8-2 .2 H [facility] Be Jjaupzq3333-60-29 05:14:00* Test Item Value Reference Range Interpretation Comments Hepatitis Be Antigen (test code = 12516-0) Negative Negative [facility] B Core Total Zobukzkn6197-36-39 05:14:00* Test Item Value Reference Range Interpretation Comments Hepatitis B Core Total Antibody (test code = 00565-0) Negative Negative Performed at: - [facility] [id number] Director: Alli Georges MD, Phone: [phone] B Surface Rsrriik0563-68-91 05:14:00* Test Item Value Reference Range Interpretation Comments Hepatitis B Surface Antigen (test code = 5196-1) Negative Negat mumtaz [facility] Be Gwdhdjq1452-96-76 05:14:00* Test Item Value Reference Range Interpretation Comments Hepatitis Be Antigen (test code = 93285-0) Negative Negative [facility] B Core Total Droxfglk7048-41-51 05:14:00* Test Item Value Reference Range Interpretation Comments Hepatitis B Core Total Antibody (test code = 54298-5) Negative Negative Performed at: - [facility] [id number] Director: Alli Georges MD, Phone: [phone] [facility] Medical CenterHepatitis B Surface Qluoczn1826-97-07 05:14:00* Test Item Value Reference Range Interpretation Comments Hepatitis B Surface Antigen (test code = 5196-1) Negative Negat mumtaz [facility] CenterProthrombin Rjcz5049-57-87 00:09:00* Test Item Value Reference Range Interpretation Comments Prothrombin Time (test code = 5902-2) 15.5 11.9-14.5 H [facility] CenterProthromb Time International Ratio 2018-05-29 00:09:00* Test Item Value Reference Range Interpretation Comments Prothromb Time International Ratio (test code = 6301-6) 1.17 Oral Anticoagulant Therapy INR Values:1. Low Intensity Therapy 1.5 - 2.02 . Moderate Intensity Therapy 2.0 - 3.03. High Intensity Therapy(1) 2.5 - 3. 54. High Intensity Therapy(2) 3.0 - 4.05. Panic Value INR > 5.0 [facility] (1&2) Kldbrqcb5901-75-73 17:13:00* Test Item Value Reference Range Interpretation Comments HIV (1&2) Antibody (test code = 03449-9) NON-REACTIVE NONREACTIVE [facility] P24 Rcjxgbq7503-46-10 17:13:00* Test Item Value Reference Range Interpretation Comments HIV P24 Antigen (test code = HIV P24 Antigen) NON-REACTIVE NONREACT MUMTAZ [facility] (1&2) Pivwyamm5877-24-79 17:13:00* Test Item Value Reference Range Interpretation Comments HIV (1&2) Antibody (test code = 20913-2) NON-REACTIVE NONREACTIVE [facility] P24 Dbcktvn4264-87-44 17:13:00* Test Item Value Reference Range Interpretation Comments HIV P24 Antigen (test code = HIV P24 Antigen) NON-REACTIVE NONREACT MUMTAZ [facility] QJ9668-37-10 12:56:00 [facility] [address] [address] Patient Name: INDRA GALVAN MR #: [id number] : 1980 Age/Sex: 37/M Req #: [id number] Adm Physician: KIET DUMAS MD Ordered by: MANDEEP MARIE MD Report #: [id number] Location: MED/SURG3 Room/Bed: [facility] Procedure: 0402-[address]/CT CHEST WO [...] 1308 COPY TO: MANDEEP MARIE MD Amylase Efdwl4869-40-75 09:09:00* Test Item Value Reference Range Interpretation Comments Amylase Level (test code = 1798-8) 24 25-125 L [facility] CenterLipase2019-04-02 09:09:00* Test Item Value Reference Range Interpretation Comments Lipase (test code = 3040-3) 28 8-78 [facility] CenterAmylase Tdzjr7965-33-84 09:09:00* Test Item Value Reference Range Interpretation Comments Amylase Level (test code = 1798-8) 24 25-125 L [facility] CenterLipase2019-04-02 09:09:00* Test Item Value Reference Range Interpretation Comments Lipase (test code = 3040-3) 28 8-78 [facility] 2 MQZUN2196-09-08 06:24:00 [facility] [address] [address] Patient Name: INDRA GALVAN MR #: [id number] : 1980 Age/Sex: 37/M Req #: [id number] Adm Physician: KIET DUMAS MD Ordered by: ANAYA BUSTAMANTE MD Report #: [id number] Location: MED/SURG3 Room/Bed: [facility] Procedure: 0402-0 010 DX/CHEST 2 VIEWS [...] COPY TO: ANAYA BUSTAMANTE MD CT ABDOMEN/PELVIS O8597-92-45 20:09:00 [facility] [address] [address] Patient Name: INDRA GALVAN MR #: [id number] : 1980 Age/Sex: 37/M Req #: [id number] Adm Physician: KIET DUMAS MD Ordered by: ANAYA BUSTAMANTE MD Report #: [id number] [facility] [address] [address] Procedure: 0401-[address]/CT ABDOMEN/PELVIS W Exam [...] process such as hypoproteinemia. Signed by: Ross Staley MD on 05/27/2018 8:40 PM Dictated By: ROSS STALEY MD 37 Transcribed By: CATERINA on 05/27/182039 COPY TO: ANAYA BUSTAMANTE MD TZKJORBHXMJ7711-03-63 19:50:[address] [address] Patient Name: INDRA GALVAN MR #: [id number] : 1980 Age/Sex: 37/M Req #: [id number] Adm Physician: KIET DUMAS MD Ordered by: ANAYA BUSTAMANTE MD Report #: [id number] Location: [facility] Room/Bed: [address] [place] [address] Procedure: 0401-0 013 US/US GALLBLADDER Exam Date: [...] and hepatic steatosis. Sign ed by: Ross Staley MD on 05/27/2018 7:55 PM Dictated By: ROSS STALEY MD 52 Transcribed By: CATERINA on 05/27/181954 COPY TO: ANAYA BUSTAMANTE MD B- Type Natriuretic Pxlbhch8846-32-85 17:56:00* Test Item Value Reference Range Interpretation Comments B-Type Natriuretic Peptide (test code = 15398-6) 221.6 0-100 H [facility] CenterInfluenza Virus Types A,B Antigen 2018-05-27 17:30:00* Test Item Value Reference Range Interpretation Comments Influenza Virus Types A,B Antigen (test code = 24637-3) NEGATIVE NEGATIVE [facility] CenterInfluenza Virus Types A,B Antigen 2018-05-27 17:30:00* Test Item Value Reference Range Interpretation Comments Influenza Virus Types A,B Antigen (test code = 63193-0) NEGATIVE NEGATIVE [facility] CenterTroponin K1259-28-42 17:28:00* Test Item Value Reference Range Interpretation Comments Troponin I (test code = KWN2571) 0.010 0-0.300 [facility] CenterLactic Acid Zpiyk7565-19-57 17:20:00* Test Item Value Reference Range Interpretation Comments Lactic Acid Level (test code = Lactic Acid Level) 26.5 4.5- 19.8 Results repeated and called to Alina at 1720 on 05/27/18 by Kalin Almanza. Read ba ck and verified.[facility] CenterCHEST 2 SXDQB1440-15-88 15:47:00 [facility] [address] [address] Patient Name: INDRA GALVAN MR #: [id number] : 1980 Age/Sex: 37/M Req #: [id number] Adm Physician: Ordered by: ANAYA BUSTAMANTE MD Report #: [id number] Location: ER Room/Bed: Procedure: [id number] DX/CHEST 2 VIEWS Exam Date: Exam Time: [...] 3:50 PM Dictated By: SONIA Jeffery MD [id number] Transcribed By: CATERINA on 05/27/18 9344 COPY TO: ANAYA BUSTAMANTE MD
--- OUTSIDE RECORDS SUMMARY | 2019-11-01 22:02 | XMS REPORT | Clinical Summary ---
Author Author [facility] Organization [facility] Address Unknown Phone Unavailable Care Team Providers Care Manager Internship Name Role Phone PCP Unavailable Allergies No [...] Dates Group BC/BS BC/BS PPO xxxxxxxxxxxx 2017-P [phone] [id number] [place] [address] Advance Directives Date Inactivated Comments Code Status Date Activated 01/28/2018 3:20 PM Full Code 01/24/2018 10:54 PM
--- OUTSIDE RECORDS SUMMARY | 2019-11-01 22:03 | XMS REPORT | Clinical Summary ---
Author Author PATY ExaptiveNell J. Redfield Memorial HospitalEmergenSeeMethodist Behavioral HospitalShoutOmaticOdessa Memorial Healthcare Center Address Unknown Phone Unavailable Care Team Providers Care Deputy Director Of Public Works Name Role Phone Keith Hammond Unavailable Pcp, [...] disease) on dialysis (HCC); Symptomatic anemia 05/04/2019 [facility] Cardiology - Encounter 05/10/2019 05/04/2019 Travel Marissa Mixon Labs Only (LVM asking pt tor return my c all, labs are due.) 05/02/2019 Telephone Transplant Bib Roger RN Alcoholic hepatitis with ascites (Primar y Dx); Fatty liver 04/08/2019 Orders Only Transplant Bib Roger RN 04/08/2019 Documentation Transplant Devny Velasco MD Alcoholic hepatitis with ascites; ESRD [...] Gena Gordon MD Mindikoglu, Ayse Leyla, MD [facility] Alcoholic hepatitis with ascites (Primar y [...] evaluation for end stage renal disease 02/03/2019 [facility] Radiology Encounter System, Provider Not In [...] 33.9 in adult; Portal hypertension (HCC) 12/21/2018 [facility] Internal Al dicine - Encounter 12/26/2018 12/21/[address] [facility] Internal Al mynor 12/21/2018 Travel Jessie Emery Appointment ([facility] for case worker Annika camacho (pt currently admitted @ [facility]) [...] liver failure with hepatic coma (HCC) 10/16/2018 [facility] General Internal Al dicine - Encounter 11/15/2018 after 10/31/2018 Family [...] unspecified vessel or lesion type, unspecified whether [place] or transplanted heart (HCC) BODY FLUID CULTURE [...] ms QTC Calculatio n(Bazett) 490 ms R Mcintosh 151 degrees T Mcintosh -88 degrees Undetermi lara rhythm Left posterior [...] ms QTC Calculatio n(Bazett) 262 ms R Mcintosh 153 degrees T Mcintosh -84 degrees Sinus tachycardi a with 1st [...] ms QTC Calculatio n(Bazett) 511 ms P Mcintosh 254 degrees R Mcintosh 46 degrees T Mcintosh -73 degrees Atrial flutter with variable A-V [...] ms QTC Calculatio n(Bazett) 0 ms R Mcintosh 0 degrees T Mcintosh 0 degrees No QRS complexes found, no [...] ms QTC Calculatio n(Bazett) 557 ms P Mcintosh 45 degrees R Mcintosh 33 degrees T Mcintosh 29 degrees Normal sinus rhythm Nonspecifi c [...] Alcohol ic hepatitis with DIFFERENTIAL 9:34 AM 3D SPECIALIST ascites ESRD on hemodialysis (HCC) PROTHROMBIN TIME/INR Routine 04/07/2019 Alcoholic hepatitis with 9:34 AM 3D SPECIALIST ascites ESRD on hemodialysis (HCC) HEPATIC FUNCTION PANEL Routine 04/07/2019 Alcohol ic hepatitis with 9:34 AM 3D SPECIALIST ascites ESRD on hemodialysis (HCC) CBC W/PLT COUNT & AUTO Routine 04/07/2019 Alcohol ic hepatitis with DIFFERENTIAL 9:34 AM 3D SPECIALIST ascites ESRD on hemodialysis (HCC) BASIC METABOLIC PANEL (7) Routine 04/07/2019 Alco holic hepatitis with 9:34 AM 3D SPECIALIST ascites ESRD on hemodialysis (HCC) CBC W/PLT COUNT & AUTO Routine 03/14/2019 Alcohol ic cirrhosis of DIFFERENTIAL 10:32 AM 3D SPECIALIST liver without ascit es (HCC) PROTHROMBIN TIME/INR Routine 03/14/2019 Alcoholic cirrhosis of 10:32 AM 3D 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 (HCC) CBC W/PLT COUNT & AUTO Routine 03/14/2019 Alcohol ic cirrhosis of DIFFERENTIAL 10:32 AM 3D SPECIALIST liver without ascit es (HCC) HEPATIC FUNCTION PANEL Routine 03/14/2019 Alcohol ic cirrhosis of 10:32 AM 3D 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 (HCC) BASIC METABOLIC PANEL (7) Routine 03/14/2019 Alco holic cirrhosis of 10:32 AM 3D 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 (HCC) CBC W/PLT COUNT & AUTO Routine 03/04/2019 Iron de ficiency anemia, DIFFERENTIAL 10:00 AM 3D SPECIALIST unspecified iron deficiency anemia type COMPREHENSIVE METABOLIC Routine 03/04/2019 Alcoho lic cirrhosis of PANEL 10:00 AM 3D SPECIALIST liver with ascites (HCC) CBC W/PLT COUNT & AUTO Routine 03/04/2019 Iron de ficiency anemia, DIFFERENTIAL 10:00 AM 3D SPECIALIST unspecified iron deficiency anemia type BILIRUBIN, DIRECT Routine 03/04/2019 Alcoholic ci rrhosis of 10:00 AM 3D SPECIALIST liver with ascites (HCC) PROTHROMBIN TIME/INR Routine 03/04/2019 Alcoholic cirrhosis of 9:55 AM 3D SPECIALIST liver with ascites (HCC) COMPREHENSIVE METABOLIC Routine 02/03/2019 Fatty liver PANEL 10:13 AM 3D SPECIALIST BILIRUBIN, DIRECT Routine 02/03/2019 Fatty liver 10:13 AM 3D SPECIALIST CBC W/PLT COUNT & AUTO Routine 02/03/2019 ESRD (e nd stage renal DIFFERENTIAL 10:12 AM 3D SPECIALIST disease) (HCC) Acute blood loss anemia PROTHROMBIN TIME/INR Routine 02/03/2019 Fatty maru er 10:12 AM 3D SPECIALIST CBC W/PLT COUNT & AUTO Routine 02/03/2019 ESRD (e nd stage renal DIFFERENTIAL 10:12 AM 3D SPECIALIST disease) (HCC) Acute blood loss anemia US PELVIS WITH DOPPLER Routine 02/03/2019 ESRD (e nd stage renal 9:35 AM 3D SPECIALIST disease) (HCC) Pre-transplant evaluation for end stage renal disease RHYTHM STRIP - SCAN 01/21/2019 11:42 AM 3D SPECIALIST RHYTHM STRIP - SCAN 01/20/2019 4:02 PM 3D SPECIALIST RHYTHM STRIP - SCAN 01/20/2019 4:02 PM 3D SPECIALIST TRANSFUSION SERVICE 01/19/2019 REPORT - SCAN 6:00 PM 3D SPECIALIST PREPARE LEUKO-REDUCED RBC Routine 01/18/2019 11:55 PM 3D SPECIALIST TRANSFUSION SERVICE 01/18/2019 REPORT - SCAN 6:03 PM 3D SPECIALIST VITAMIN B12 AND FOLATE Routine 01/18/2019 5:47 PM 3D SPECIALIST HAPTOGLOBIN Routine 01/18/2019 5:47 PM 3D SPECIALIST LACTATE DEHYDROGENASE Routine 01/18/2019 (LDH) 5:47 PM 3D SPECIALIST IRON, TIBC, % SAT. Routine 01/18/2019 (WITHOUT FERRITIN) 5:47 PM 3D SPECIALIST FERRITIN Routine 01/18/2019 5:47 PM 3D SPECIALIST ULTRAFILTRATION HD CRRT Routine 01/18/2019 3:13 PM 3D SPECIALIST HEMOGLOBIN AND HEMATOCRIT STAT 01/18/2019 11:17 AM 3D SPECIALIST CBC (HEMOGRAM ONLY) Routine 01/18/2019 2:51 AM 3D SPECIALIST TRANSFUSE LEUKO-REDUCED Routine 01/17/2019 RED BLOOD CELLS 11:33 PM 3D SPECIALIST TRANSFUSE LEUKO-REDUCED Routine 01/17/2019 RED BLOOD CELLS 10:39 PM 3D SPECIALIST HEMODIALYSIS INPATIENT Routine 01/17/2019 9:29 PM 3D SPECIALIST TYPE AND SCREEN, Routine 01/17/2019 AUTOMATED 3:35 PM 3D SPECIALIST CBC W/PLT COUNT & AUTO Routine 01/16/2019 Alcohol ic cirrhosis of DIFFERENTIAL 3:56 PM 3D SPECIALIST liver without ascit es (HCC) AB SPECIFICITY CLASS I Routine 01/16/2019 ESRD (e nd stage renal 3:56 PM 3D SPECIALIST disease) (HCC) Pre-transplant evaluation for end stage renal disease ALPHA FETOPROTEIN (AFP), Routine 01/16/2019 Alcoh olic cirrhosis of TUMOR MARKER 3:56 PM 3D SPECIALIST liver without ascit es (HCC) PROTHROMBIN TIME/INR Routine 01/16/2019 Alcoholic cirrhosis of 3:56 PM 3D 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 (HCC) CBC W/PLT COUNT & AUTO Routine 01/16/2019 Alcohol ic cirrhosis of DIFFERENTIAL 3:56 PM 3D SPECIALIST liver without ascit es (HCC) HEPATIC FUNCTION PANEL Routine 01/16/2019 Alcohol ic cirrhosis of 3:56 PM 3D 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 (HCC) BASIC METABOLIC PANEL (7) Routine 01/16/2019 Alco holic cirrhosis of 3:56 PM 3D 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 (HCC) FLOW PRA CLASS II WITH Routine 01/16/2019 ESRD (e nd stage renal REFLEX TO ANTIBODY 3:56 PM 3D SPECIALIST disease) (HCC) SPECIFICITY Pre-transplant evaluation for end stage renal disease FLOW PRA CLASS I WITH Routine 01/16/2019 ESRD (en d stage renal REFLEX TO ANTIBODY 3:56 PM 3D SPECIALIST disease) (HCC) SPECIFICITY Pre-transplant evaluation for end stage renal disease HLA TYPING CII Routine 01/16/2019 ESRD (end stage renal 3:56 PM 3D SPECIALIST disease) (HCC) Pre-transplant evaluation for end stage renal disease HLA TYPING CI Routine 01/16/2019 ESRD (end stage renal 3:56 PM 3D SPECIALIST disease) (HCC) Pre-transplant evaluation for end stage renal disease RHYTHM STRIP - SCAN 01/08/2019 9:10 AM 3D SPECIALIST TRANSFUSION SERVICE 01/06/2019 REPORT - SCAN 5:50 PM 3D SPECIALIST HEPATIC FUNCTION PANEL Routine 01/06/2019 6:01 AM 3D SPECIALIST PROTHROMBIN TIME/INR Routine 01/06/2019 6:01 AM 3D SPECIALIST MAGNESIUM Routine 01/06/2019 6:01 AM 3D SPECIALIST BASIC METABOLIC PANEL (7) Routine 01/06/2019 6:01 AM 3D SPECIALIST CBC (HEMOGRAM ONLY) Routine 01/06/2019 6:01 AM 3D SPECIALIST MISCELLANEOUS LAB ORDER Routine 01/06/2019 6:01 AM 3D SPECIALIST PREPARE LEUKO-REDUCED RBC Routine 01/05/2019 11:54 PM 3D SPECIALIST TRANSFUSION SERVICE 01/05/2019 REPORT - SCAN 5:50 PM 3D SPECIALIST PROTHROMBIN TIME/INR Routine 01/05/2019 4:30 AM 3D SPECIALIST HEPATIC FUNCTION PANEL Routine 01/05/2019 4:30 AM 3D SPECIALIST MAGNESIUM Routine 01/05/2019 4:30 AM 3D SPECIALIST BASIC METABOLIC PANEL (7) Routine 01/05/2019 4:30 AM 3D SPECIALIST CBC (HEMOGRAM ONLY) Routine 01/05/2019 4:30 AM 3D SPECIALIST PREPARE LEUKO-REDUCED RBC STAT 01/04/2019 11:54 PM 3D SPECIALIST TRANSFUSION SERVICE 01/04/2019 REPORT - SCAN 5:53 PM 3D SPECIALIST DRUG SCREEN, URINE, Routine 01/04/2019 TRANSPLANT 5:39 PM 3D SPECIALIST DRUG SCREEN, URINE, Routine 01/04/2019 COMPREHENSIVE 5:39 PM 3D SPECIALIST TRANSFUSE LEUKO-REDUCED Routine 01/04/2019 RED BLOOD CELLS 2:09 PM 3D SPECIALIST ETHANOL Routine 01/04/2019 9:42 AM 3D SPECIALIST CBC W/PLT COUNT & AUTO Routine 01/04/2019 DIFFERENTIAL 4:07 AM 3D SPECIALIST CBC W/PLT COUNT & AUTO Routine 01/04/2019 DIFFERENTIAL 4:07 AM 3D SPECIALIST HEPATIC FUNCTION PANEL Routine 01/04/2019 4:07 AM 3D SPECIALIST BASIC METABOLIC PANEL (7) Routine 01/04/2019 4:07 AM 3D SPECIALIST TRANSFUSE LEUKO-REDUCED STAT 01/04/2019 RED BLOOD CELLS 1:55 AM 3D SPECIALIST TYPE AND SCREEN, STAT 01/03/2019 AUTOMATED 9:56 PM 3D SPECIALIST CBC W/PLT COUNT & AUTO STAT 01/03/2019 DIFFERENTIAL 9:54 PM 3D SPECIALIST PT/APTT STAT 01/03/2019 9:54 PM 3D SPECIALIST HEPATIC FUNCTION PANEL STAT 01/03/2019 9:54 PM 3D SPECIALIST BASIC METABOLIC PANEL (7) STAT 01/03/2019 9:54 PM 3D SPECIALIST CBC W/PLT COUNT & AUTO STAT 01/03/2019 DIFFERENTIAL 9:54 PM 3D SPECIALIST REPORT OF PROCEDURE - 12/31/2018 ENDOSCOPY SCAN 12:52 PM 3D SPECIALIST TRANSFUSION SERVICE 12/27/2018 REPORT - SCAN 6:02 [...] ms QTC Calculatio n(Bazett) 541 ms P Mcintosh 40 degrees R Mcintosh 30 degrees T Mcintosh 14 degrees Normal sinus rhythm Prolonged QT [...] included. Specimen Narrative Performed At FINAL REPORT [facility] MRI of the abdomen with and [...] Report Verified Date/Time: 0 12:54:18 Reading Location: [address] Reading Room Procedure Note Interface, External [...] Report Verified Date/Time: 05/23/2019 12:54:18 Reading Location: [facility] B1 [id number] Ortho Consult Reading Room Performing Organization Address City/State/Zipcode Ph one Number GE RIS * CBC with platelet count + automated diff (05/23/2019 9:03 AM CDT) Only the most recent of 39 results within the time period is included. WBC 7.3 3.5 - 10.5 K/L [facility] RBC 2.33 (L) 4.63 - 6.08 M/L [facility] Hemoglobin 7.3 (L) 13.7 - 17.5 GM/DL [facility] Hematocrit 22.0 (L) 40.1 - 51.0 % [facility] MCV 94.4 (H) 79.0 - 92.2 fL [facility] MCH 31.3 25.7 - 32.2 pg [facility] MCHC 33.2 32.3 - 36.5 GM/DL [facility] RDW 18.6 (H) 11.6 - 14.4 % [facility] Platelets 94 (L) 150 - 450 K/CU MM [facility] MPV 8.4 (L) 9.4 - 12.4 fL [facility] nRBC 0 0 - 0 /[address] [facility] % Neutros 69 % [facility] % Lymphs 18 % [facility] % Monos 9 % [facility] % Eos 3 % [facility] % Baso 1 % [facility] # Neutros 5.03 1.78 - 5.38 K/L [facility] # Lymphs 1.31 (L) 1.32 - 3.57 K/L [facility] # Monos 0.62 0.30 - 0.82 K/L [facility] # Eos 0.23 0.04 - 0.54 K/L [facility] # Baso 0.06 0.01 - 0.08 K/L [facility] Immature 0 0 - 1 % [facility] Granulocytes-[facility] Specimen Blood Performing Organization Address City/State/Zipcode Ph one Number [place] [address] [place] * Prothrombin time/INR (05/23/2019 9:03 AM CDT) Only the most recent of 26 results within the time period is included. Protime 16.6 (H) 11.9 - 14.2 seconds [facility] INR 1.4 <=5.9 [facility] Specimen Blood Narrative Performed At Effective 07/24/2018: PT Reference Range Change [facility] New: 11.9-14.2Previous: 11.7-14.7 [facility] MEDICAL CE NTER RECOMMENDED COUMADIN/WARFARIN INR THERA PY RANGES STANDARD DOSE: 2.0-3.0Includes: PRO PHYLAXIS for venous thrombosis, systemic embolization; TREATMENT for venous thro mbosis and/or pulmonary embolus. HIGH RISK: Target INR is 2.5-3.5 for pa tients wiht mechanical heart valves. Performing Organization Address [facility] Ph one Number [place] [address] [facility] * Hepatic function panel (05/23/2019 9:03 AM CDT) Only the most recent of 27 results within the time period is included. Protein, Total 6.5 6.0 - 8.3 gm/dL [facility] Albumin 3.4 (L) 3.5 - 5.0 g/dL [facility] Total Bilirubin 5.4 (H) 0.2 - 1.2 mg/dL [facility] Bilirubin, Direct 2.6 (H) 0.1 - 0.5 mg/dL [facility] Alkaline Phosphatase 200 (H) 40 - 150 U/L [facility] AST 46 (H) 5 - 34 U/L [facility] ALT 12 6 - 55 U/L [facility] Specimen Blood Narrative Performed At Computer Systems Integrator ID - KAVONG [facility] Performing Organization Address City/[facility] Ph one Number [place] [address] [facility] * Basic Metabolic Panel (05/23/2019 9:03 AM CDT) Only the most recent of 32 results within the time period is included. Sodium 139 136 - 145 meq/L [facility] Potassium 3.3 (L) 3.5 - 5.1 meq/L [facility] Chloride 100 98 - 107 meq/L [facility] CO2 30 (H) 22 - 29 meq/L [facility] BUN 25 (H) 7 - 21 mg/dL [facility] Creatinine 2.87 (H) 0.57 - 1.25 mg/dL [facility] Glucose 112 (H) 70 - 105 mg/dL [facility] Calcium 8.5 8.4 - 10.2 mg/dL [facility] EGFR 25Comment: ESTIMATED GFR IS mL/min/1.73 sq m [facility] NOT ACCURATE CREATININE [facility] CLEARANCE IN PREDICTING GLOMERULAR FILTRATION RATE. ESTIMATED GFR IS NOT APPLICABLE FOR DIALYSIS PATIENTS. Specimen Blood Narrative Performed At Computer Systems Integrator ID - KAVONG [facility] Specimen moderately [facility] Performing Organization Address City/[facility] Ph one Number [address] [facility] * RHYTHM STRIP - SCAN (05/15/2019 [...] is n ot available. Performing Organization Address City/[facility] Ph one Number [facility] [address] [place], [place] * Bilirubin, direct (05/14/2019 9:30 AM CDT) Only the most recent of 4 results within the time period is included. Bilirubin, Direct 2.0 (H) 0.1 - 0.5 mg/dL [facility] Specimen Blood Performing Organization Address City/[facility] Ph one Number [address] [facility] * EKG-SCANNED (05/13/2019 11:03 AM CDT) [...] included. Phosphorus 3.4 2.3 - 4.7 mg/dL [facility] Specimen Blood Narrative Performed At Computer Systems Integrator ID - ULYSSES Jang [facility] Performing Organization Address [facility] one Number [address] [facility] * Magnesium (05/10/2019 5:22 AM CDT) Only the most recent of 17 results within the time period is included. Magnesium 1.9 1.6 - 2.6 mg/dL [facility] Specimen Blood Narrative Performed At Computer Systems Integrator ID - ULYSSES Jang [facility] Performing Organization Address [facility] one [address] [facility] * NM Myocardial Perfusion Pet/CT (Rest & Stress) (05/09/2019 2:55 PM CDT) Specimen Narrative Performed At FINAL REPORT Qloud PROCEDURE: MYOCARDIAL PERFUSION PET HEAVENLY GING (Rest/Stress) CPT CODE: 84251 INDICATION: Assess symptoms/risk factor s of possible [...] Report Verified Date/Time: 0 16:05:35 Reading Location: [place] [id number] Reading Room Procedure Note Interface, External Ris In - 05/09/2019 4:07 PM CDT FINAL REPORT PROCEDURE: MYOCARDIAL PERFUSION PET IMAGING (Rest/Stress) CPT CODE: 10920 INDICATION: Assess symptoms/risk factors of possible CAD [...] Report Verified Date/Time: 05/09/2019 16:05:35 Reading Location: [address] Reading Room Performing Organization Address [facility] Ph one Number GE RIS * Treadmill [...] on 05/15/2019 10:24:47 PM Performing Organization Address [facility] Ph one Number GE MUSE * Comprehensive metabolic panel (05/09/2019 5:35 AM CDT) Only the most recent of 8 results within the time period is included. Protein, Total 6.1Comment: Specimen slightly 6.0 - 8.3 gm/dL [facility] Albumin 2.9 (L)Comment: Specimen 3.5 - 5.0 g/dL [facility] Alkaline Phosphatase 116 40 - 150 U/L [facility] Total Bilirubin 4.1 (H)Comment: Specimen 0.2 - 1.2 mg/dL [facility] hemolyzed [facility] Sodium 131 (L) 136 - 145 meq/L [facility] Potassium 3.9Comment: Specimen slightly 3.5 - 5.1 meq/L [facility] Chloride 99 98 - 107 meq/L [facility] CO2 23 22 - 29 meq/L [facility] BUN 22 (H) 7 - 21 mg/dL [facility] Creatinine 4.22 (H)Comment: Specimen 0.57 - 1.25 mg/dL [facility] hemolyzed [facility] Glucose 108 (H) 70 - 105 mg/dL [facility] Calcium 8.1 (L) 8.4 - 10.2 mg/dL [facility] AST 30Comment: Specimen slightly 5 - 34 U/L [facility] ALT 8Comment: Specimen slightly 6 - 55 U/L [facility] EGFR 16Comment: ESTIMATED GFR IS mL/min/1.73 sq m [facility] NOT ACCURATE CREATININE [facility] CLEARANCE IN PREDICTING GLOMERULAR FILTRATION RATE. ESTIMATED GFR IS NOT APPLICABLE FOR DIALYSIS PATIENTS. Specimen Blood Narrative Performed At Computer Systems Integrator ID - ULYSSES M [facility] Specimen slightly icteric [facility] Performing Organization Address City/State/Zipcode Ph one Number [facility] [address] [place], [place] [address] [facility] * TRANSFUSION SERVICE REPORT - SCAN (05/08/2019 5:52 PM CDT) Only the most recent of 18 results within the time period is included. Narrative Performed At This result has an attachment that is n ot available. * Limited 2D Echocardiogram (05/08/2019 11:40 AM CDT) Ejection Fraction [facility] ECHO HEARTLAB [facility] Specimen Narrative Performed At Transthoracic Echocardiography Report (TTE) [facility] ECH O HEARTLAB Demographics [facility] Patient Name INDRA GALVAN Date of Study 05/08/2019 YAN CORDERO [id number] Gender Male Visit Number [id number] Unknown [id number] Room Number 6213 Number Date of Birth1980 [...] (>60%) . Left AtriumLA s ize is [id number] enlarged . Right VentricleNormal r ight ventricle [...] 05/08/2019 YAN CORDERO Gender Male Visit Number [id number] Race Unknown Room Number 6213 Number Date of 1980 Referring Physician ROBBIE NEW Age 38 year(s) Vibratory Pile Driver Renny Yepez Cotton Converter Nick Navarro Interpreting Physician MELVA Jackson Procedure [...] (>60%) . Left Atrium LA size is [id number]-[id number] enlarged . Right Ventricle Normal right ventricle [...] included. Procalcitonin 3.64 (H) <0.05 ng/mL [facility] Specimen Blood Narrative Performed At SEPSIS RISK (ng/mL) [facility] Low:0.05-0.50 [facility] Intermediate: 0.51-2.00 High: >=2.01 Performing Organization Address City/State/Zipcode Ph one Number [facility] [address] [place], [place] [address] [facility]ENTER * Manual Differential (05/08/2019 3:02 AM CDT) Only the most recent of 8 results within the time period is included. % Neutros 74 % [facility] % Lymphs 12 % [facility] % Monos 9 % [facility] % Eos 2 % [facility] % Baso 3 % [facility] # Neutros 8.66 (H) 1.78 - 5.38 K/ul [facility] # Lymphs 1.40 1.32 - 3.57 K/ul [facility] # Monos 1.05 (H) 0.30 - 0.82 K/uL [facility] # Eos 0.23 0.04 - 0.54 K/uL [facility] # Baso 0.35 (H) 0.01 - 0.08 K/uL [facility] Total Counted 100 [facility] Platelet Morphology Normal [facility] Toxic Granulation Present [facility] Polychromasia 2+ moderate [facility] Hypochromia 1+ few [facility] Anisocytosis 1+ few [facility] Macrocytes 1+ few [facility] Poikilocytes 1+ few [facility] All Cells 1+ few [facility] Artifact Present [facility] Platelet Conc Adequate [facility] Specimen Blood Narrative Performed At Computer Systems Integrator ID - Ivonne Marina [facility] User comments: [facility] Slide comments: Performing Organization Address [facility] Ph one Number [facility] [address] [place], [place] [address] [facility] * Prepare Leuko-Red RBC (05/07/2019 11:54 PM CDT) Only the most recent of 10 results within the time period is included. CROSSMATCH COMPATIBLE SAFETRACE TX Unit ABO B Pos SAFETRACE TX UNIT NUMBER [id number] S[employer]ET[employer]ACE TX Status TX_TIMEINCHART SAFETRACE TX Blood Bank Product RED BLOOD CELLS [employer]AFETRACE TX PRODUCT CODE [id number] [employer] [place] Specimen Other Performing Organization Address [facility] Ph one Number [employer] [place] * PERIPHERAL VASCULAR REPORT - SCAN (05/07/2019 9:12 PM CDT) Only the most recent of 2 results within the time period is included. Narrative Performed At This result has an attachment that is n ot available. * Body fluid culture + gram stain (05/07/2019 7:20 PM CDT) Result No growth [facility] Gram Stain Result 1+ White blood cells seen [facility] Gram Stain Result No organisms seen [facility] Specimen Body Fluid Performing Organization Address [facility] one Number [facility] [address] [place] [address] [facility] * Cytology (05/07/2019 7:20 PM CDT) Case Report Medical Cytology [facility] Report [facility] Case: [id number] Authorizing Provider:Robbie New MD Collected: 05/07/2019 1920 Ordering Location: [place] [address] CCUReceived: 05/08/19 20 2795 Pathologist: Josh Yang MD Specimen:Pericardial DIAGNOSIS PERICARDIAL FLUID (CYTOSPINS): [facility] - NEGATIVE FOR MALIGNANCY [facility] Signing Pathologist Direct Phone Line: [phone] CPT Code(s) [address] [facility] [facility] Pericardial effusion, [facility] cirrhosis [facility] SPECIMEN SOURCE PERICARDIAL FLUID [facility] GROSS DESCRIPTION 600 mls bloody fluid; 4 [facility] cytospins [facility] Collected: [id number] Received: [id number] STATEMENT OF ADEQUACY Satisfactory [facility] ALTH [facility] Gross assessment was [facility] performed at [place], Department of [facility] Pathology, [address] [place] [id number], Technical component was [facility] performed at [place], Department of [facility] Pathology, [address] [place] [id number], Professional component [facility] was performed at [place], Department of [facility] TER Pathology, [address] [place] [id number], Specimen Body Fluid Narrative Performed At This result has an attachment that is n ot available. Performing Organization Address City/State/Zipcode Ph one Number [address] [address] MED[facility] CENTER * 2D Echo W/Doppler(CW/PW/Color) (05/07/2019 6:32 PM CDT) Ejection Fraction [facility] ECHO HEARTLAB [facility] Specimen Narrative Performed At Transthoracic Echocardiography Report (TTE) [facility] ECH O HEARTLAB Demographics [facility] Patient Name INDRA GALVAN Date of Study05/07/2019 YAN SONFredy [id number] Gender Male Visit Number [id number] Unknown [id number] Room [id number] Number Date of Birth1980 Barron New MD [...] 05/07/2019 YAN CORDERO Gender Male Visit Number [id number] Race Unknown Room Number 6213 Number Date of 1980 Referring Robbie New MD Physician Age 38 year(s) Vibratory Pile Driver Aneudy Jerez Interpreting Vic Caruso Physician Fellow [...] pericardial effusion is present. Performing Organization Address City/State[facility] Ph one Number [facility] ECHO HEARTLAB [facility] * Carotid doppler bilateral (05/06/2019 4:05 PM CDT) Ejection Fraction [facility] ECHO HEARTLAB [facility] Specimen Impressions Performed At Right Impression [facility] 1. The internal carotid artery is within normal limit s. [facility] 2. The external carotid artery is [...] At PV LAB - Carotid Duplex Study [facility] ECHO HEARTLAB Demographics [facility] Patient Name INDRA GALVAN Date of Study05/06/2019 RUSS VEE JR. [id number] Visit Number [id number] Gender Male Accession Number [id number] Date of Birth1980 Merrill Acevedo Room [id number] PhysicianAGACNP SonographerGzay Maki RVS Interpreting Josh Meeks [...] 05/06/2019 YAN CORDERO Age 38 Visit Number [id number] Gender Male Accession Number [id number] Date of 1980 Referring Karen Carranza Room Number 6213 Physician SARAH Vibratory Pile Driver Cb Maki RVS Interpreting Karen Blackwell, Physician [...] Performing Organization Address City/State/Zipcode Ph one Number [facility] ECHO HEARTQuotify Technology [facility] * REPORT OF PROCEDURE - ENDOSCOPY URL (05/06/2019 1:43 PM CDT) Narrative Performed At This result has an attachment that is n ot available. 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) [facility] Cotton Converter Joanna Whitley Interpreting Pratik Rubin MD Procedure [...] 05/06/2019 YAN CORDERO Gender Male Visit Number [id number] Race Unknown Room Number 2454 Number Date of 1980 Referring Robbie New MD Physician Age 38 year(s) Vibratory Pile Driver Aneudy Jerez Cotton Converter Joanna Whitley Interpreting Pratik Aelxis MD Procedure Type of Study TTE procedure:2DECHO [...] TR Gradient: 30.26 mmHg Performing Organization Address [facility] one Number [facility] ECHO HEARTLAB MKCKESSON CPACS * Transfuse Leuko-Red RBC (05/06/2019 3:24 AM CDT) Only the most recent of 23 results within the time period is included. * Troponin I (05/05/2019 9:09 PM CDT) Only the most recent of 3 results within the time period is included. Troponin I <0.01 0.00 - 0.03 ng/mL [facility] Specimen Blood Narrative Performed At Troponin I (TnI) levels must be interpreted in the co ntext of the presenting [facility] symptoms and the clinical findings. Elevated TnI [...] acute neurological disease, and persistent tachyarrhythmia . Computer Systems Integrator ID - BS Performing Organization Address [facility] one Number [place] [address] [facility] * ECG 12 lead (05/05/2019 8:53 PM CDT) Only the most recent of 5 results within the time period is included. Specimen Narrative Performed At Ventricular Rate 128 BPM GE MUSE Atrial Rate 89 BPM QRS Duration 94 ms Q-T Interval 336 ms QTC Calculation(Bazett) 490 ms R Mcintosh 151 degrees T Mcintosh -88 degrees Atrial fibrillation Left posterior fascicular [...] 336 ms QTC Calculation(Bazett) 490 ms R Mcintosh 151 degrees T Mcintosh -88 degrees Atrial fibrillation Left posterior fascicular [...] leads Confirmed by MD [place] JOSEPH P ([id number]) on 05/06/2019 6:34:11 AM Performing Organization Address [facility] Ph one Number GE MUSE * Hepatitis B surface antigen (05/05/2019 3:02 PM CDT) Only the most recent of 3 results within the time period is included. HBsAg Screen Nonreactive Nonreactive [facility] Specimen Blood Narrative Performed At Computer Systems Integrator ID - BS [facility] Performing Organization Address [facility] Ph one Number [address] [address] [facility] * Occult blood, stool (05/05/2019 12:07 PM CDT) Occult blood Negative Negative [facility] Specimen Stool Performing Organization Address [facility] one [place] [address] [place] [address] * ABORH, manual (05/05/2019 9:51 AM CDT) ABO Grouping B [facility] Rh Factor POS [facility] Specimen Blood Performing Organization Address [facility] one [address] [address] [facility] * Iron, TIBC, % sat. (without ferritin) (05/05/2019 9:51 AM CDT) Only the most recent of 2 results within the time period is included. Iron 88.0 40.0 - 160.0 ug/dL [facility] TIBC 130 (L) 250 - 450 ug/dL [facility] Iron % Saturation 68 (H) 20 - 55 % [facility] Specimen Blood Narrative Performed At Computer Systems Integrator ID - PIAYA L [facility] Performing Organization Address [facility] one [place] [address] [address] [phone] [place] [address] * Reticulocyte count (05/05/2019 9:51 AM CDT) % Retic 2.3 (H) 0.5 - 1.8 % [facility] Specimen Blood Narrative Performed At Computer Systems Integrator ID - [id number] [facility] Performing Organization Address [facility] one [place] [address] 0 [phone] [place] [address] * Direct AHG (LUMA)/Direct Antonia (05/05/2019 9:51 AM CDT) Direct AHG-IGG NEGATIVE [facility] Direct AHG-C3B, C3D NEGATVIE [facility] Specimen Blood Performing Organization Address City/[facility]/Zipcode Ph one [address] * Ferritin (05/05/2019 9:51 AM CDT) Only the most recent of 2 results within the time period is included. Ferritin 1,081 (H) 5 - 275 ng/mL [facility] Specimen Blood Narrative Performed At Computer Systems Integrator ID - AAHAMID [facility] Performing Organization Address City/[facility] Ph one [address] * Lactic acid, venous (05/05/2019 12:29 AM CDT) Only the most recent of 3 results within the time period is included. Lactate, Venous 2.6 (H) 0.5 - 2.2 mmol/L [facility] Specimen Blood Narrative Performed At Computer Systems Integrator ID - PIAYA L [facility] Specimen slightly icteric [facility] Performing Organization Address [facility] one [address] * Type and screen, automated ([facility] and CECs only) (05/04/2019 8:42 PM CDT) Only the most recent of 7 results within the time period is included. ABO/RH AUTOMATED (BEAKER) B [facility] Ab Scrn NEGATIVE [facility] Specimen Blood Performing Organization Address City/[facility] Ph one [address] * Urinalysis w/Microscopic + Reflex to Culture (05/04/2019 7:53 PM CDT) Only the most recent of 3 results within the time period is included. Color, UA Yellow [facility] Clarity, UA Hazy [facility] Specific [place], UA 1.011 1.001 - 1.035 [facility] pH, UA 5.5 5.0 - 8.0 [facility] Protein, UA 100 mg/dL (A) Negative [facility] Glucose, UA 100 mg/dL (A) Negative [facility] Ketones, UA Negative Negative [facility] Bilirubin, UA Negative Negative [facility] Blood, UA Negative Negative [facility] Nitrite, UA Negative Negative [facility] Leukocytes, UA Negative Negative [facility] Urobilinogen, UA 0.2 0.2 - 1.0 mg/dL [facility] RBC, UA 7 /HPF [facility] WBC, UA 12 /HPF [facility] Bacteria, UA Occasional [facility] Mucus Rare [facility] Squam Epithel, UA 18 /HPF [facility] Hyaline Casts, UA 78 /LPF [facility] Casts 70 /LPF [facility] Crystals, Urine Occasional [facility] Yeast Moderate [facility] Specimen Source [facility] Specimen Urine Narrative Performed At Computer Systems Integrator ID - [auto] [facility] Computer Systems Integrator ID - [facility] Performing Organization Address City/State/Zipcode Ph one Number [facility] [address] [facility] [place] [place] [address] [facility] * Strep pneumoniae antigen (05/04/2019 7:53 PM CDT) Strep pneumoniae Antigen Presumptive negative for Presumptive negative for [facility] pneumococcal pneumonia - see pneumococcal pneumonia - [facility] comment see comment, Presumptive negative for pneumococcal meningitis - see comment Specimen Urine Narrative Performed At Presumptive negative for pneumococcal p neumonia, suggesting no current or recent [facility] pneumococcal infection. Infection due t o S. pneumoniae cannot be ruled out since [facility] the antigen present in the sample may b e below the detection limit of the test. Performing Organization Address City/[facility] Ph one Number [place] [address] 0 [phone] [place] [address] * Legionella antigen, urine (05/04/2019 7:53 PM CDT) Legionella Urine Antigen Negative - see commentComment: [facility] Negative for L. pneumophila [facility] serogroup 1 antigen, suggesting no recent or current infection with this serogroup. Legionellosis cannot be ruled out since other serogroups and species may cause disease. Specimen Urine Performing Organization Address [facility] Ph one Number [place] [address] [address] [phone] [place] [address] * Urine culture (05/04/2019 7:53 PM CDT) Only the most recent of 2 results within the time period is included. Result <10,000 col/mL skin chase [facility] Specimen Urine Performing Organization Address [facility] Ph one Number [place] [address] [address] [phone] [place] [address] * PT/aPTT (05/04/2019 7:29 PM CDT) Only the most recent of 4 results within the time period is included. Protime 18.9 (H) 11.9 - 14.2 seconds [facility] INR 1.6 <=5.9 [facility] PTT 40.7 (H) 22.5 - 36.0 seconds [facility] Specimen Blood Narrative Performed At Effective 07/24/2018: PT Reference Range Change [facility] New: 11.9-14.2Previous: 11.7-14.7 [facility] MEDICAL CE NTER RECOMMENDED COUMADIN/WARFARIN INR THERA PY RANGES STANDARD DOSE: 2.0-3.0Includes: PRO PHYLAXIS for venous thrombosis, systemic embolization; TREATMENT for venous thro mbosis and/or pulmonary embolus. HIGH RISK: Target INR is 2.5-3.5 for pa tients wiht mechanical heart valves. Performing Organization Address [facility] one [address] [address] [facility] * Blood Culture - Routine (Left Venipuncture) (05/04/2019 7:29 PM CDT) Only the most recent of 10 results within the time period is included. Result No growth in 5 days [facility] Specimen Blood Performing Organization Address [facility] one [address] [address] [facility] * B-type Natriuretic Factor (BNP) (05/04/2019 7:29 PM CDT) BNP 612 (H) 0 - 100 pg/mL [facility] Specimen Blood Narrative Performed At Computer Systems Integrator ID - DB [facility] Performing Organization Address [facility] one [address] [facility] * Rapid Influenza A&B Screen (05/04/2019 7:28 PM CDT) Rapid Influenza A Antigen Negative Negative, Inconclusi ve [facility] Rapid influenza B Antigen Negative Negative, Inconclusi ve [facility] Specimen Nasal Performing Organization Address [facility] one [address] [address] [facility] * CRITICAL CARE (05/04/2019 6:47 PM CDT) [...] Report Verified Date/Time: 0 18:08:08 Reading Location: [facility] C013T Transiti onal Reading Room Procedure Note [...] Report Verified Date/Time: 05/04/2019 18:08:08 Reading Location: [facility] C013T Transitional Reading Room Performing Organization Address City/[facility] Ph one Number GE RIS * US pelvis with doppler (02/03/2019 9:35 AM 3D SPECIALIST) Specimen Narrative Performed At FINAL REPORT GE [...] iliac artery measures 1.0 cm. The left corporate communications intern al iliac artery is not visualized. The bilateral common and external iliac veins are patent. IMPRESSION: Unremarkable pelvic vascula ture. Signed: Keith Garcia MD Report Verified Date/Time: 11:35:01 Reading Location: [address] Radiolo gy Reading Room Procedure Note Interface, External Ris In - 02/03/2019 11:37 AM 3D SPECIALIST FINAL REPORT Pelvic ultrasound dated 02/03/2019. COMMENT: [...] Verified Date/Time: 02/03/2019 11:35:01 Reading Location: [address] Radiology Reading Room Performing Organization Address [facility] Ph one Number GE RIS * Vitamin B12 and Folate (01/18/2019 5:47 PM 3D SPECIALIST) Vitamin B12 1,988 (H) 213 - 816 pg/mL [facility] Folate 17.8 >=7.0 ng/mL [facility] Specimen Blood Performing Organization Address [facility] one Number [place] [address] [facility] * Lactate dehydrogenase (LDH) (01/18/2019 5:47 PM 3D SPECIALIST) Only the most recent of 2 results within the time period is included. LDH 192 125 - 220 U/L [facility] Specimen Blood Performing Organization Address [facility] one Number [place] [address] [facility] * Haptoglobin (01/18/2019 5:47 PM 3D SPECIALIST) Only the most recent of 2 results within the time period is included. Haptoglobin 14 14 - 258 mg/dL [facility] Specimen Blood Performing Organization Address [facility] one Number [place] [address] 0 [phone] [place] [address] * Hemoglobin and hematocrit (01/18/2019 11:17 AM 3D SPECIALIST) Only the most recent of 3 results within the time period is included. Hemoglobin 7.5 (L) 13.7 - 17.5 GM/DL [facility] Hematocrit 23.0 (L) 40.1 - 51.0 % [facility] Specimen Blood Performing Organization Address [facility] one Number [place] [address] [facility] * CBC (Hemogram only) (01/18/2019 2:51 AM 3D SPECIALIST) Only the most recent of 5 results within the time period is included. WBC 6.6 3.5 - 10.5 K/L [facility] RBC 2.11 (L) 4.63 - 6.08 M/L [facility] Hemoglobin 6.7 (L) 13.7 - 17.5 GM/DL [facility] Hematocrit 20.2 (L) 40.1 - 51.0 % [facility] MCV 95.7 (H) 79.0 - 92.2 fL [facility] MCH 31.8 25.7 - 32.2 pg [facility] MCHC 33.2 32.3 - 36.5 GM/DL [facility] RDW 17.3 (H) 11.6 - 14.4 % [facility] Platelets 74 (L) 150 - 450 K/CU MM [facility] MPV 10.1 9.4 - 12.4 fL [facility] nRBC 0 0 - 0 /100 WBC [facility] Specimen Blood Performing Organization Address City/State/[facility] Ph one Number [facility] [address] [place] [address] [facility] * HLA TYPING CII (01/16/2019 3:56 PM 3D SPECIALIST) [facility]-DR AG1 15 [facility] HLA TESTING HLA-DR AG2 4 [facility] HLA TESTING HLA-DR AG4-2 53 [facility] HLA TESTING HLA-DR AG5-1 51 [facility] HLA TESTING HLA-DQA1 AG 1-1 01 [facility] HLA TESTING HLA-DQA1 AG 1-2 03 [facility] HLA TESTING HLA-DQB1 AG 1-1 6 [facility] HLA TESTING HLA-DQB1 AG 1-2 8 [facility] HLA TESTING HLA-DPA1 AG 1-1 01 [facility] HLA TESTING HLA-DPA1 AG 1-2 01 [facility] HLA TESTING HLA-DPB1 AG 1-1 02:01 [facility] HLA TESTING HLA-DPB1 AG 1-2 04:02 [facility] HLA TESTING Specimen Blood Narrative Performed At Disclaimer: [facility] HLA TESTING This test was developed and its perform ance characteristics determined by the [facility] Laboratory. It has not been cleared [...] complexity clinical laboratory testing. Performing Organization Address [facility] one Number [facility] HLA TESTING ONE [facility] [place], [place]: [id number], [place] [address] CLIA#[id number] CAP#[id number] UNOS#[id number] * HLA TYPING CI (01/16/2019 3:56 PM 3D SPECIALIST) HLA-A AG1 3 [facility] HLA TESTING HLA-A AG2 68 [facility] HLA TESTING HLA-B AG1 7 [facility] HLA TESTING HLA-B AG2 35 [facility] HLA TESTING HLA-C AG1 7 [facility] HLA TESTING HLA-C AG2 7 [facility] HLA TESTING HLA-B BW1 6 [facility] HLA TESTING HLA-B BW2 6 [facility] HLA TESTING Specimen Blood Narrative Performed At Disclaimer: [facility] HLA TESTING This test was developed and its perform ance characteristics determined by the [facility] Laboratory. It has not been cleared [...] complexity clinical laboratory testing. Performing Organization Address [facility] one Number [facility] HLA TESTING ONE [facility] [place], [place]: [id number], [place] [address] CLIA#[id number] CAP#[id number] UNOS#[id number] * FLOW PRA CLASS II WITH REFLEX TO ANTIBODY SPECIFICITY (01/16/2019 3:56 PM 3D SPECIALIST) Flow Class II Percent 0 [facility] HLA TESTI NG Positive Specimen Blood Narrative Performed At Disclaimer: [facility] HLA TESTING This test was developed and its perform ance characteristics determined by the [facility] Laboratory. It has not been cleared [...] complexity clinical laboratory testing. Performing Organization Address [facility] one Number [facility] HLA TESTING ONE Gregorio Pedroza, MS: [id number], [place] [address] CLIA#[id number] CAP#[id number] UNOS#[id number] * FLOW PRA CLASS I WITH REFLEX TO ANTIBODY SPECIFICITY (01/16/2019 3:56 PM 3D SPECIALIST) Flow Class I Percent 20 [facility] HLA TESTIN G Positive Specimen Blood Narrative Performed At Disclaimer: [facility] HLA TESTING This test was developed and its perform ance characteristics determined by the [facility] Laboratory. It has not been cleared [...] complexity clinical laboratory testing. Performing Organization Address [facility] one Number [facility] HLA TESTING ONE Gregorio Pedroza, MS: [id number], [place] [address] CLIA#[id number] CAP#[id number] UNOS#[id number] * AB SPECIFICITY CLASS I (01/16/2019 3:56 PM 3D SPECIALIST) AB Specificity Class I NO CLASS I ANTIBODY DETECTED [facility] HLA TESTING WITH MFIs > 4000 Specimen Blood Narrative Performed At Disclaimer: [facility] HLA TESTING This test was developed and its perform ance characteristics determined by the [facility] Laboratory. It has not been cleared [...] complexity clinical laboratory testing. Performing Organization Address [facility] Ph one Number [facility] HLA TESTING ONE [facility] Yovany, MS: [id number], [place] [address] CLIA#[id number] CAP#[id number] UNOS#[id number] * Alpha fetoprotein (AFP), tumor marker (01/16/2019 3:56 PM 3D SPECIALIST) Alpha-Fetoprotein 2.7 <10.0 ng/mL [facility] Specimen Blood Performing Organization Address [facility] one Number [address] [facility] * Drug screen, urine, transplant (01/04/2019 5:39 PM 3D SPECIALIST) Specimen Urine Narrative Performed At This result has an attachment that is n ot available. Performing Organization Address [facility] one Number [facility] [address] [phone] * Drug screen, urine, comprehensive (01/04/2019 5:39 PM 3D SPECIALIST) Specimen Urine Narrative Performed At This result has an attachment that is n ot available. * Ethanol (01/04/2019 9:42 AM 3D SPECIALIST) Ethanol Lvl <10 <=10 mg/dL [facility] Specimen Blood Performing Organization Address [facility] one Number [address] [facility] * Vancomycin level, random (12/26/2018 3:56 AM CDT) Only the most recent of 2 results within the time period is included. Vancomycin Rm 16.4 ug/mL [facility] Specimen Blood Narrative Performed At Reference Range: No Normals [facility] Performing Organization Address [facility] one Number [address] [facility] * Venous doppler legs bilateral (12/24/2018 6:55 PM CDT) Ejection Fraction [facility] ECHO HEARTLAB MKCKESSON CPACS Specimen Impressions Performed At Right Impression [facility] ECHO HEARTLAB 1. There is no deep venous obstruction in the common femoral, prof[facility] femoral, femoral, popliteal, posterior tibial or [...] PV LAB - Lower Extremities DVT Study [facility] ECHO HEART LAB Demographics ATUL [facility] Patient Name INDRA GALVAN Date of Study12/24/2018 RUSS VEE JR. [id number] Visit Number [id number] Gender Male Accession Number [id number] Date of Birth1980 Vlad Naranjo [id number] Physician SonographerGzay Maki RVS Interpreting Physician ConstantinoMD [...] 12/24/2018 YAN CORDERO Age 38 Visit Number [id number] Gender Male Accession Number [id number] Date of 1980 Referring Audie Hoyt MD Room Number 8815 Physician Vibratory Pile Driver Cb Maki RVS Interpreting Karen Blackwell, Physician [...] are measured in cm Performing Organization Address City/State/[facility] Ph one Number [facility] ECHO HEARTLAB MKCKESSON [...] CDT) Specimen Narrative Performed At FINAL REPORT [facility] CT right lower extremity. CLINICAL HISTORY: Knee trauma, tenderne ss or effusion, initial exam (Age > 1y) TECHNIQUE: Contiguous axial images of t he right lower extremity without contrast with coronal and sagit chely reformations. This exam was performed according to the [facility] dose optimization program which includes automated [...] Verified Date/Time: 12/23/2018 03:00:15 Performing Organization Address [facility] Ph one Number [facility] * Vancomycin level, trough (12/22/2018 4:26 PM CDT) Vancomycin Tr 40.3 (HH) 10.0 - 20.0 ug/mL [facility] Specimen Blood Performing Organization Address [facility] one Number [address] [facility] * Fibrinogen (12/22/2018 3:55 AM CDT) Fibrinogen 195 (L) 225 - 434 mg/dl [facility] Specimen Blood Performing Organization Address [facility] one Number [address] [facility] * POC-Lactic Acid, Venous (12/21/2018 4:01 AM CDT) Only the most recent of 2 results within the time period is included. POC-Lactic Acid, Venous 1.6Comment: TESTED AT [facility] 0.9 - 1.7 mmol/L [address] Specimen Blood Performing Organization Address [facility] one Number [place] [address] [facility] * Ammonia (12/21/2018 2:48 AM CDT) Only the most recent of 2 results within the time period is included. Ammonia 65 18 - 72 mol/L [facility] Specimen Blood Performing Organization Address [facility] one [place] [address] [facility] * XR knee complete 4 views [...] and treating other patients and teaching ti md. Critical care was necessary to treat or [...] AM CDT) % Neutros (manual) 80 % [facility] % Lymphs (manual) 6 % [facility] % Monos (manual) 7 % [facility] % Eos (manual) 4 % [facility] % Baso (manual) 0 % [facility] % Bands (manual) 3 0 - 10 % [facility] # Neutros (manual) 15.76 (H) 1.80 - 8.00 K/L [facility] # Lymphs (manual) 1.18 (L) 1.48 - 4.50 K/L [facility] # Monos (manual) 1.38 (H) 0.00 - 1.30 K/L [facility] # Eos (manual) 0.79 (H) 0.00 - 0.50 K/L [facility] # Baso (manual) 0.00 0.00 - 0.20 K/L [facility] # Bands (manual) 0.6 0.0 - 0.8 K/L [facility] Total Counted 100 [facility] Bands plus Segmented 16.35 [facility] Neutrophils [facility] WBC Morphology Normal [facility] Platelet Morphology Normal [facility] Anisocytosis 2+ moderate [facility] All Cells 2+ moderate [facility] Poikilocytes 1+ few [facility] Specimen Blood Performing Organization Address City/State/Zipcode Ph one Number [facility] [address] [place], [place] [address] [facility]ENTER * IR Tunneled Catheter Insertion (11/14/2018 12:38 PM CDT) Specimen Narrative Performed At FINAL REPORT [facility] Conversion of a nontunneled to tunneled dialysis catheter. History: Renal failure. Modality: Fluoroscopy. Sedation: Moderate sedation was adminis tered. 0.5 mg of Versed and 50 mcg of fentanyl IV was used for mode rate sedation monitored under my direction. Total intra-service time of sedation [id number]. The patient's vital signs were monitore d throughout the procedure and recorded in the patient's medical recor d by the nurse. Pipe Cleaning Machine Operator:Regis Ortega MD. Law Firm Receptionist:None. Approach: Right internal jugular vein Estimated blood [...] Report Verified Date/Time: 9 10:01:43 Reading Location: [facility] P048 Angio Bod y Reading Room Procedure [...] the patient's medical record by the nurse. Pipe Cleaning Machine Operator: Regis Ortega MD. Law Firm Receptionist: None. Approach: Right internal jugular vein Estimated [...] by blunt dissection. A 19 cm right [place] Duraflow 2 catheter was brought through the [...] Report Verified Date/Time: 11/15/2018 10:01:43 Reading Location: [facility] P048 Angio Body Reading Room Performing Organization Address City/State/Zipcode Ph one Number [facility] * XR chest 2 views (11/12/2018 9:38 PM CDT) Specimen Narrative Performed At FINAL REPORT Qloud Chest, two views. MEDICAL HISTORY: Cough. COMPARISON [...] Report Verified Date/Time: 9 23:58:30 Reading Location: [facility] [id number] Consult Reading Room Procedure Note [...] Report Verified Date/Time: 11/12/2018 23:58:30 Reading Location: [address] Consult Reading Room Performing Organization Address [facility] one Number [facility] * Protein, random urine (11/12/2018 1:55 AM CDT) Protein, Urine 122 (H) 0 - 14 mg/dL [facility] Specimen Urine Performing Organization Address [facility] one Number [address] 0 [phone] [place] [address] * Creatinine, random urine (11/12/2018 1:55 AM CDT) Creatinine, Ur 225.8 mg/dL [facility] Specimen Urine Narrative Performed At Reference Range: No Normals [facility] Performing Organization Address [facility] one Number [address] 0 [phone] [address] * REPORT OF PROCEDURE - ENDOSCOPY URL (11/10/2018 2:04 PM CDT) Narrative Performed At This result has an attachment that is n ot available. * Tissue Exam (11/10/2018 1:25 PM CDT) Case Report Surgical Pathology ON LICENSE OF [facility] Case: [id number] Authorizing Provider:Devyn Lantigua MDCollected: 11/10/2018 1325 Ordering Location: [address] Received: 11/11/2018 0818 Service Pathologist: Be Arenas MD Specimens: A) - Polyp, Colon - Sigmoid, sigmoid polyp bx B) - Cecum, cecum ulcer bx ADDENDUM Immunostains for HSV1, HSV2, [facility] and CMV performed on block [address] are negative. DIAGNOSIS PART A SIGMOID COLON POLYP, [facility] POLYPECTOMY: [facility] HYPERPLASTIC POLYP. PART B CECUM BIOPSY FOR SUSPECTED ULCER: NONSPECIFIC ACTIVE COLITIS WITH ULCERATION AND REGENERATIVE FEATURES. NEGATIVE FOR GRANULOMAS, DYSPLASIA, OR INVASIVE CARCINOMA. NO MORPHOLOGIC OR IMMUNOPHENOTYPIC EVIDENCE OF LYMPHOMA. SEE DIAGNOSTIC COMMENT. IMMUNOSTAINS FOR VIRAL MARKERS PENDING, ADDENDUM TO FOLLOW. Signing Pathologist Direct Phone Line: [phone] COMMENT PART B: Immunohistochemical [facility] studies performed on block [address] demonstrate the lymphoid population to be positive for CD20 positive B cells and CD3/CD5 positive T cells. There is no aberrant co-expression of CD20 and CD5. Cyclin D1 is negative. There is no morphologic or immunophenotypic evidence of lymphoma. CPT Code(s) 32970h5, 85360, 81099v5 [facility] CLINICAL HISTORY Colon polyps [facility] HEALT H [facility] SPECIMEN SOURCE A. Sigmoid polyp biopsy. B. [facility] Cecum ulcer biopsy [facility] GROSS DESCRIPTION Part A. Received in formalin [facility] labeled with the patient's [facility] name, accession number and "polyp, colon-sigmoid" is a 0.2 cm guajardo soft tissue fragment, which is submitted in toto in A1. Part B. Received in formalin labeled with the patient's name, accession number and "cecum" are four irregular guajardo soft tissue fragments ranging 0.1-0.2 cm, which are submitted in toto in B1. CG/ew MICROSCOPIC DESCRIPTION Performed. [facility] SPECIAL STUDIES The interpretation of this [facility] case included the use of [facility] immunohistochemistry or special stains. BLOCK B1- HSV1, HSV2, CMV, CD20, CD3, CD5, CYCLIN D1 Control Slides Examined: In-house known positive controls were evaluated along with the test tissue. These control slides run alongside of the patients sample show appropriate staining. Internal positive and negative controls when available are evaluated Immunohistochemistry technical testing was performed at [facility], Pathology Laboratory where it was developed [...] Cecum structure (body structure) Performing Organization Address [facility] one Number [place] [address] [facility] * HEMODIALYSIS INPATIENT (11/09/2018 3:25 PM [...] 4:20 AM CDT) Yari Antigen Titer 1:2 [facility] Specimen Blood Performing Organization Address [facility] Ph one Number [facility] [address] [place], [place] [address] [facility] * Yari antigen with reflex to titer (11/08/2018 4:20 AM CDT) Yari Antigen [facility] Specimen Blood Performing Organization Address City/State/Zipcode Ph one Number [facility] [address] [place], [place] [address] [facility] C[facility] * CT chest with high resolution/ild (11/08/2018 12:16 AM CDT) Specimen Narrative Performed At FINAL REPORT Qloud CT of the chest, without contrast Clinical [...] Report Verified Date/Time: 9 11:29:31 Reading Location: [facility] C013X Ortho Co nsult Reading Room [...] Report Verified Date/Time: 11/08/2018 11:29:31 Reading Location: [facility] B1 C013X Ortho Consult Reading Room Performing Organization Address City/State/Zipcode Ph one Number [facility] * Urinalysis w/Microscopic (11/05/2018 8:47 PM CDT) [facility], UA Dark Yellow [facility] Clarity, UA Clear [facility] Specific [place], UA 1.012 1.001 - 1.[address] [facility] pH, UA 6.0 5.0 - 8.0 [facility] Protein, UA 20 mg/dL (A) Negative [facility] Glucose, UA Negative Negative [facility] Ketones, UA Negative Negative [facility] Bilirubin, UA Positive (A) Negative [facility] Blood, UA Negative Negative [facility] Nitrite, UA Negative Negative [facility] Leukocytes, UA Negative Negative [facility] Urobilinogen, UA 3.0 (H) 0.2 - 1.0 mg/dL [facility] RBC, UA 0 /HPF [facility] WBC, UA 1 /HPF [facility] Bacteria, UA Occasional [facility] Mucus Rare [facility] Specimen Source Urine, Clean Catch [facility] Specimen Urine Performing Organization Address City[facility] Ph one Number [address] [facility] * Hepatitis B core antibody, total (11/05/2018 3:32 PM CDT) Hep B Core Total Ab Nonreactive Nonreactive [facility] Specimen Blood Performing Organization Address City/[facility] Ph one Number [address] [facility] * Hepatitis B surface antibody (11/05/2018 3:32 PM CDT) Hep B S Ab <8.0 <8.0 mIU/mL [facility] Specimen Blood Performing Organization Address City/State/Zipcode Ph one Number [facility] [address] [place], [place] [address] MED[facility]ENTER * IR non-tunneled [...] applied. Catheter placed: Schon XL Catheter size ([place]ese): 14 Catheter length (cm): 15 Catheter flush: [...] Report Verified Date/Time: 9 19:49:40 Reading Location: [place] [id number] Angio Bod y Reading Room Procedure Note [...] applied. Catheter placed: Schon XL Catheter size ([place]ese): 14 Catheter length (cm): 15 Catheter flush: [...] Report Verified Date/Time: 11/05/2018 19:49:40 Reading Location: [facility] P048 Angio Body Reading Room Performing Organization Address City/State/Zipcode Ph one Number [facility] after 10/31/2018 Insurance Payer Benefit Subscriber ID Type Phone Address Plan / Group [employer]UE [employer] BCBS PPO xxxxxxxxxxxx PPO [phone] [address] [place] [address] CHOICE [phone] Advance Directives For more information, please contact: [facility] [address] [place] [address] Date Inactivated Comments Code Status [...]
--- OUTSIDE RECORDS SUMMARY | 2019-11-01 22:09 | XMS REPORT | Continuity of Care Document ---
Author Author [facility] t Organization [facility] t Address [address] [place] [address] Phone Unavailable Care Team Providers Care Latent Print Examiner Name Role Phone VOSSJOSE STONE Trudi PCP Anton KELSEY Attphys Unavailable KHLOE BOX Attphys Unavailable Jose Alejandro PACKING LINE OPERATOR, Michael Attphys Unavailable Anastacio Killian Attphys Unavailable Anaya MURPHY, Kin Radford Attphys Unavailable Carlos A FRYE MPH, Laura Merchant Attphys [phone] Dorothy Boss Attphys Unavailable Elton SMITH, Katie Attphys Unavailable Laura Schwartz Attphys Unavailable Tim MURPHY, Brannon Mccartney Attphys Unavailable Steven PACKING LINE OPERATOR, Laine Carreon Attphys Unavailable George MURPHY, Emily Attphys Unavailable Mabel MURPHY, Nay Attphys Unavailable Sanjana De Leon MD Attphys Grzegorz FRYE, Danii Shepard Attphys DANII LANTIGUA Attphys Unavailable Sea SMITH, Abby Attphys Unavailable Marissa Mixon Attphys Unavailable Ady MURPHY, Katie Attphys Unavailable Silvano MURPHY, Delores Attphys Unavailable Anthony DIRECTOR OF PRECLINICAL RESEARCH, Spring Abel Attphys Kenisha Gordillo Attphys Unavailable Darvin WICK, Charmaine Howe Attphys Lj FRYE, Iman Geronimo Attphys Malou FRYE, Erin Mir Attphys Elsie FRYE, Robina Cummins Attphys [phone] Connie Christensen Attphys Unavailable Eduardo FRYE, [...] Attphys Hiwot JOHNSON Attphys Unavailable Kendal FRYE, [facility] Attphys [phone] OZIEL VALDEZ Attphys Unavailable José Miguel FRYE, Oziel Christie Attphys [phone] Reggie FRYE, Yasmin Fermin Attphys Kenisha Rojas Attphys Unavailable VENTURA BREEN Attphys Unavailable Julia FRYE, Ventura Renee Attphys Brandon FRYE, Zenon Kaufman Attphys [phone] Audie Hoyt MD Attphys Caden FRYE, Melisa Attphys Hemalatha Alfredo Attphys Unavailable BRANDON, ZENON KAUFMAN Attphys Unavailable Kurt FRYE, Coreen Flanagan Attphys Kin Cavazos Attphys Unavailable Samina Silva CRNA Attphys [phone] Vinay Garcia MD Attphys INDRA PERRIN Attphys Unavailable BOCCARDO, KIET Attphys Unavailable KHLOE BOX Admphys Unavailable MEADOWS, ERIN SURESH Admphys Unavailable KHADERI, AIOZ WILFRED Admphys Unavailable Yasmin PAREDES Admphys Unavailable OMRANIAN, ALI Admphys Unavailable BRANDON, ZENON KAUFMAN Admphys Unavailable INDRA PERRIN Admphys Unavailable BOCCARDO, KIET Admphys Unavailable Payers Payer Name Policy Type Policy Number Effective Date Expiration Date S hemalathagianfranco [employer] [facility] Ppo [id number] 2018 00:00:00 [facility] Cdc Review [id number] [facility] BLUE CROSS/BLUE SHIELDBCBS PPO POS EPO C [id number], [place] [address] xxxxxxxxxxxx [facility] Problems Condition Name Condition Details Condition Category Status Onset Date Resolution Date Last Treatment Date Treating Clinician Comments Source Sepsis Sepsis Disease Active 2019-05-04 00:00:00 [facility] Symptomatic anemia Symptomatic anemia Disease Active 2019-01-17 00:00:0 0 [facility] Tubular adenoma Tubular adenoma Disease Active 2019-01-17 00:00:00 [facility] Rash Rash Disease Active 2019-01-17 00:00:00 [facility] Screening for cancer Screening for cancer Disease Active 00:00:00 [facility] Alcohol use disorder, mild, abuse Alcohol use disorder, mild, ab use Disease Active 2019-01-17 00:00:00 [facility] Pedal edema Pedal edema Disease Active 2019-01-17 00:00:00 [facility] Hepatic encephalopathy Hepatic encephalopathy Disease Active 2019-01-17 00:00:00 [facility] Alcoholic hepatitis Alcoholic hepatitis Disease Active 2019-01-17 00:00 :00 [facility] Alcoholic cirrhosis Alcoholic cirrhosis Disease Active 2018-12-21 00:00 :00 [facility] Sepsis, unspecified organism Sepsis, unspecified organism Disease Active 2018-12-21 00:00:00 [facility] ESRD (end stage renal disease) ESRD (end stage renal disease) Disea se Active 2018-12-21 00:00:00 [facility] Liver failure Liver failure Disease Active 2018-10-16 00:00:00 [facility] Acute blood loss anemia Acute blood loss anemia Disease Active 2018-06-26 00:00:00 [facility] GIB (gastrointestinal bleeding) GIB (gastrointestinal bleeding) Dis ease Active 2018-06-21 00:00:00 [facility] Hemorrhagic shock Hemorrhagic shock Disease Active 2018-06-21 00:00:00 [facility] Hyperbilirubinemia Hyperbilirubinemia Disease Active 2018-06-01 00:00:0 0 [facility] Sinus tachycardia Sinus tachycardia Disease Active 2018-01-28 00:00:00 [facility] Prediabetes Prediabetes Disease Active 2018-01-28 00:00:00 [facility] Jaundice Jaundice Problem Active [facility] Pneumonia Pneumonia Problem Active [facility] Hepatic cirrhosis Problem Active [facility] Obesity Obesity Disease Active [facility] Fatty liver Fatty liver Disease Active [facility] Dark emesis Dark emesis Disease Active [facility] Hypotension due to hypovolemia Hypotension due to hypovolemia Disease Active [facility] Acute renal failure with tubular necrosis Acute renal failure with tubular necrosis Disease Active [facility] ESRD (end stage renal disease) on dialysis ESRD (end s tage renal disease) on dialysis Disease Active [facility] ESRD on hemodialysis ESRD on hemodialysis Disease Active [facility] History of Past Illness Condition Name Condition Details Condition Category Status Onset Date Resolution Date Last Treatment Date Treating Clinician Comments Source Respiratory center failure Respiratory center failure Disease Resolved 2018-06-01 00:00:00 2018-12-23 00:00:00 2018-12-23 18:37:49 [facility] Acute respiratory failure with hypoxia Acute respiratory ericka lure with hypoxia Disease Resolved 2018-06-01 00:00:00 2018-12-23 00:00:00 2018-12-23 18:37:3 7 [facility] ARDS (adult respiratory distress syndrome) ARDS (adult respiratory distress syndrome) Disease Resolved 2018-06-01 00:00:00 2018-12-23 00:00:00 2 18:37:31 [facility] Acute kidney injury Acute kidney injury Disease Resolved 2018-05 00:00:00 2018-12-23 00:00:00 2018-12-23 18:37:33 [facility] Hyponatremia Hyponatremia Disease Resolved 2018-06-01 00:00:00 2 00:00:00 2018-12-23 18:37:52 [facility] Hypertension Hypertension Disease Resolved 2018-12-23 00: 00:00 2018-12-23 18:37:55 [facility] Allergies, Adverse Reactions, Alerts Allergy Name Allergy Type Status Severity Reaction(s) Onset Date Inacti ve Date Treating Clinician Comments Source Prednisone Drug Intolerance Active 2019-05-04 00:00:00 [facility] Ceftriaxone Drug Allergy Active Rash 2019-01-06 00:00:00 [facility] Family History Family Member Diagnosis Comments Start Date Stop Date Source Natural brother No Known Problem [facility] Natural father Hypertension [facility] Natural mother Hypertension [facility] Natural son No Known Problem [facility] Social History Social Habit Start Date Stop Date Quantity Comments Source Sex Assigned At [facility] Alcohol Comment 2019-02-04 00:00:00 2019-02-04 00:00:00 quit in 9 [facility] Alcohol intake 2018-01-25 00:00:00 2018-01-25 00:00:00 Current drinker of alcohol (finding) [facility] Smoking Status Start Date Stop Date Source [facility] smoker [facility] Medications Ordered Medication Name Filled Medication Name Start Date Stop Da te Current Medication? Ordering Clinician Indication Dosage Frequency Signature (SIG) Comments Components Source Prednisone Prednisone 2019-10-21 10:46:00 Yes 40 [place] [facility] Propranolol Hcl Propranolol Hcl 2019-10-21 10:46:00 Yes 10 Twice A Day [facility] Sucralfate (Carafate) 1 Gm TABLET Sucralfate (Carafate) 1 Gm TABLET 2019-10-21 10:46:00 Yes 1 Before Meals And At Bedtime [facility] Pantoprazole Sodium (Protonix) 40 Mg TABLET. Pantopr azole Sodium (Protonix) 40 Mg TABLET. 2019-09-27 10:11:00 Yes 40 Before Kindra kfast [facility] traZODone (DESYREL) 50 MG tablet 2019-06-17 10:52:35 Yes 50mg QD Take 50 mg by mouth nightly. [facility] furosemide (LASIX) 10 mg/mL solution 2019-05-13 12:01:00 Ye s QD Take by mouth daily. [facility] colchicine (COLCRYS) 0.6 mg tablet 2019-05-11 00:00:00 202 23:59:00 No .6mg QD Take 1 tablet (0.6 mg total) by mouth bere martino for 11 days. [facility] FUROSEMIDE ORAL 2019-05-10 14:52:11 2019-05-10 00:00:00 No 80mg QD Take 80 mg by mouth daily . [facility] pantoprazole (PROTONIX) 40 MG tablet 2019-05-10 00:00:00 Ye s 40mg Q.5D Take 1 tablet (40 mg total) by mouth 2 (two) times daily. [facility] UNKNOWN 2019-02-04 09:37:27 2019-02-04 00:00:00 No QD daily Pt states he takes a medication to suppress his alcohol cravings . [facility] UNKNOWN 2019-02-04 09:37:25 2019-02-04 00:00:00 No naus ea as needed Pt takes dissolving tablet for nausea, unsure of name . [facility] thiamine 100 MG tablet 2019-02-04 00:00:00 Yes Portal hypertension (HCC) 100mg QD Take 1 tablet (100 mg total) by mouth daily. [facility] hydrOXYzine (ATARAX) 25 MG tablet 2019-01-16 00:00:00 2018 23:59:00 No Pruritus 25mg Take 1 tablet (2 5 mg total) by mouth every 6 (six) hours as needed for Itching for up to 30 days. [facility] traMADol (ULTRAM) 50 mg tablet 2019-01-06 00:00:00 Yes TK 1 T PO Q 8 H PRN P [facility] diphenhydrAMINE-zinc acetate (BENADRYL EXTRA STRENGTH) 2-0.1 % cream 2019-01-06 00:00:00 2020-01-06 23:59:00 No Apply topically 3 (three) times daily as needed for Itching. [facility] thiamine 100 MG tablet 2018-12-27 00:00:00 2019-02-04 00:00:00 N o 100mg QD Take 1 tablet (100 mg total) by mouth daily. [facility] traZODone (DESYREL) 50 MG tablet 2018-12-26 09:59:23 2018-11 00:00:00 No 50mg QD Take 50 mg by mouth nightly. [facility] midodrine (PROAMATINE) 10 MG tablet 2018-12-26 09:59:2 3 2018-12-26 00:00:00 No 10mg Q.[id number] Take 10 mg by mouth 3 (th ree) times daily. [facility] ondansetron (ZOFRAN-ODT) 4 MG disintegrating tablet 2018-12-26 09:59:23 2018-12-26 00:00:00 No 4mg Take 4 mg by mouth every 6 (six) hours as needed for Nausea. [facility] lactulose (CHRONULAC) 20 gram/30 mL solution 2018-12-26 00:00:00 Yes 30g Q.[id number] Take 45 mLs (30 g total) by mouth 3 ( three) times daily. [facility] mid[facility] (PROAMATINE) 10 MG tablet 2018-12-26 00:00:00 Yes 10mg Q.[id number] Take 1 tablet (10 mg total) by mouth 3 ( three) times daily. [facility] phytonadione, vitamin K1, (MEPHYTON) 5 mg tablet 2018-12-26 00:00:00 2019-02-04 00:00:00 No 5mg QD Take 1 tablet (5 mg total) by mouth daily. [facility] ciprofloxacin HCl (CIPRO) 500 MG tablet 00:00:00 2018-12-29 23:59:00 No 500mg QD Take 1 tablet (500 mg total) by mouth daily for 3 days. [facility] heparin injection 1,000 units/mL for IV bolus/dialysis lock 2018-11-15 00:00:00 2018-11-15 23:59:00 No 1000U 1-3.6 mLs (1,000-3,600 Units total) by Intra-Catheter route once as needed (hemodialysis acute catheter packing) for up to 1 dose. [facility] traZODone (DESYREL) 100 MG tablet 2018-11-07 09:02:2018 00:00:00 No 100mg QD Take 100 mg by mouth nightly. [facility] lactulose (CHRONULAC) 20 gram/30 mL solution 201 11-05-11 09:02:2018-11-07 00:00:00 No 20g Q.[id number] Ta ke 20 g by mouth 3 (three) times daily Titrate to 3 BM's/day . [facility] furosemide (LASIX) 20 MG tablet 2018-11-07 09:02: 00:00:00 No 40mg QD Take 40 mg by mouth daily. [facility] folic acid (FOLVITE) 1 MG tablet 2018-11-07 00:00:00 2019-10 23:59:00 No 1mg QD Take 1 tablet (1 mg total) by mouth daily. [facility] pantoprazole (PROTONIX) 40 MG tablet 2018-11-07 00:00: 00 2019-05-10 00:00:00 No 40mg QD Take 1 tablet (40 mg total) by mouth [place]. [facility] lactulose (CHRONULAC) 20 gram/30 mL solution 201 11-05-11 00:00:00 2018-12-26 00:00:00 No 30g Q.[id number] Ta ke 45 mLs (30 g total) by mouth 3 (three) times daily. [facility] ipratropium (ATROVENT) 0.02 % nebulizer solution 2018-11-07 00:00:00 2018-12-26 00:00:00 No .5mg Take 2.5 mLs (0.5 mg total) by nebulization every 6 (six) hours as needed. [facility] levoFLOXacin (LEVAQUIN) IVPB 250 mg in dextrose 5% (D5W) 50 mL 2018-11-07 00:00:00 2018-12-26 00:00:00 No 250mg Q24H Inject 50 mLs (250 mg total) intravenously daily. [facility] melatonin 3 mg Tab tablet 2018-11-07 00:00:00 2018-12-26 00:00:0 0 No 6mg Take 2 tablets (6 mg total) by mouth every night as needed. [facility] octreotide (SANDOSTATIN) 100 mcg/mL Soln 2018-10 00:00:00 2018-12-26 00:00:00 No 100ug Q.[id number] In ject 1 mL (100 mcg total) subcutaneously 3 (three) times daily. [facility] phytonadione 0.8 mg/mL Soln ORAL solution 11-07 00:00:00 2018-12-26 00:00:00 No 5mg QD Take 6.25 mLs (5 mg total) by m outh daily. [facility] thiamine (B-1) 100 mg/mL injection 2018-11-07 00:00:00 11-05-30 00:00:00 No 100mg QD Inject 1 mL (100 mg total) intravenously daily. [facility] traZODone (DESYREL) 50 MG tablet 2018-11-07 00:00:00 2018-11 23:59:00 No 50mg Take 1 tablet (50 mg total) by mouth every night as needed for up to 30 days. [facility] midodrine (PROAMATINE) 5 MG tablet 2018-11-07 00:00:00 11-06-11 23:59:00 No 5mg Q.[id number] Take 1 ta blet (5 mg total) by mouth 3 (three) times daily for 30 days. [facility] guaiFENesin (ROBITUSSIN) 100 mg/5 mL syrup 11-07 00:00:00 2018-11-17 23:59:00 No 200mg Take 10 mLs (2 00 mg total) by mouth every 4 (four) hours as needed for Congestion for up to 10 days. [facility] benzonatate (TESSALON) 100 MG capsule 2018-11-07 00:00 :00 2018-11-14 23:59:00 No 100mg Q.[id number] Take 1 capsule (100 mg total) by mouth 3 (three) times daily for 7 days. [facility] multivitamin (THERAGRAN) tablet 2018-07-10 00:00:00 23:59:00 No 1{tbl} QD Take 1 tablet by mouth daily. [facility] furosemide (LASIX) 10 mg/mL injection 2018-07-10 00:00 :00 2018-11-07 00:00:00 No 20mg Inject 2 mLs (2 0 mg total) intravenously daily as needed (significant edema) Patient with hypotension, on midodrine. Need to watch BPs. [facility] Folic Acid Folic Acid Yes [address] [facility] Midodrine Hcl Midodrine Hcl Yes [facility] Trazodone Hcl Trazodone Hcl Yes 50 Bedtime [facility] Hydrochlorothiazide Hydrochlorothiazide 2019-10-21 00:00:00 No 25 Daily [facility] Pantoprazole Sodium (Protonix) 40 Mg TABLET. Pantopr azole Sodium (Protonix) 40 Mg TABLET. 2019-10-21 00:00:00 No [facility] Nifedipine (Nifedipine Er) 30 Mg TAB.ER.24 Nifedipine (Nifedipine Er) 30 Mg TAB.ER.24 2019-10-18 00:00:00 No 30 Twice A Day [facility] Levofloxacin (Levaquin) 500 Mg TABLET Levofloxacin (Levaquin) 50 0 Mg TABLET 2018-05-27 00:00:00 No 500 Daily [facility] Olmesartan Med/Amlodipine/Hctz (Tribenzor 40-5-12.5 Mg Tablet) 1 Each TABLET Olmesartan Med/Amlodipine/Hctz (Tribenzor 40-5-12.5 Mg Tablet) 1 Each TABLET 2018-05-27 00:00:00 No 1 Daily [facility] Pantoprazole Sodium (Protonix) 40 Mg TABLET. Pantopr azole Sodium (Protonix) 40 Mg TABLET. 2018-05-27 00:00:00 No 40 Daily [facility] Vital Signs Vital Name Observation Time Observation Value Comments Source Body Temperature 2019-10-21 15:34:00 97.7 [degF] [facility] BMI (Body Mass Index) 2019-10-18 16:11:00 30.7 kg/m2 [facility] Weight 2019-10-18 12:15:00 226 [lb_av] [facility] Body Temperature 2019-09-27 17:18:00 99.0 [degF] [facility] BMI (Body Mass Index) 2019-09-27 09:42:00 26.6 kg/m2 [facility] Weight 2019-09-26 13:55:00 196 [lb_av] [facility] Systolic blood pressure 2019-05-13 10:59:00 115 mm[Hg] [facility] Diastolic blood pressure 2019-05-13 10:59:00 69 mm[Hg] [facility] Heart rate 2019-05-13 10:59:00 90 /min [facility] Body temperature 2019-05-13 10:59:00 36.94 Dariel [facility] Respiratory rate 2019-05-13 10:59:00 18 /min [facility] Body height 2019-05-13 10:59:00 180.3 cm [facility] Body weight Measured 2019-05-13 10:59:00 86.229 kg [facility] BMI 2019-05-13 10:59:00 26.51 kg/m2 [facility] Oxygen saturation in Arterial blood by Pulse oximetry 05-12 10:59:00 100 /min [facility] Procedures Procedure Date / Time Performed Performing Clinician [facility] e US guided paracentesis 2019-10-19 00:00:00 [facility] US Abdomen limited 2019-10-18 00:00:[address] [facility] [address] of abdomen and pelvis without contrast 2019-10-18 00:00:00 [facility] PERFORMANCE OF URINARY FILTRATION, <6 HRS/DAY 2019-09-27 00:00:0 0 [facility] TRANSFUSE NONAUT RED BLOOD CELLS IN PERIPH VEIN, PERC 2019-09-27 00:00:00 [facility] US abdomen complete 2019-09-26 00:00:00 [facility] PERFORMANCE OF URINARY FILTRATION, <6 HRS/DAY 2019-09-26 00:00:0 0 [facility] TRANSFUSE NONAUT RED BLOOD CELLS IN PERIPH VEIN, PERC 2019-09-26 00:00:00 [facility] MR ABDOMEN WITH & WITHOUT IV CONTRAST 2019-05-23 12:08:00 Stribl ing, Rise J. [facility] BASIC METABOLIC PANEL (7) 2019-05-23 09:03:00 Devyn Lantigua [facility] HEPATIC FUNCTION PANEL 2019-05-23 09:03:00 Devyn Lantigua [facility] PROTHROMBIN TIME/INR 2019-05-23 09:03:00 Devyn Lantigua [facility] CBC W/PLT COUNT & AUTO DIFFERENTIAL 2019-05-23 09:03:00 Alfred Lantigua [facility] RHYTHM STRIP - SCAN 2019-05-15 16:11:24 Provider, Default Zita [facility] MISCELLANEOUS LAB ORDER 2019-05-14 09:30:00 Placido Zimmerman [facility] PROTHROMBIN TIME/INR 2019-05-14 09:30:00 Devyn Lantigua [facility] HEPATIC FUNCTION PANEL 2019-05-14 09:30:00 Devyn Lantigua [facility] BASIC METABOLIC PANEL (7) 2019-05-14 09:30:00 Devyn Lantigua [facility] BILIRUBIN, DIRECT 2019-05-14 09:30:00 [facility] CBC W/PLT COUNT & AUTO DIFFERENTIAL 2019-05-14 09:30:00 Alfred Lantigua [facility] REPORT OF PROCEDURE - ENDOSCOPY SCAN 2019-05-13 11:03:24 Pro vider, Default Scanning [facility] RHYTHM STRIP - SCAN 2019-05-12 15:11:01 Provider, Default Scaniman [facility] REPORT OF PROCEDURE - ENDOSCOPY SCAN 2019-05-12 15:10:56 Pro vider, Default Scanning [facility] CARDIAC CATH REPORT - SCAN 2019-05-12 15:10:54 Provider, Default Scanning [facility] MAGNESIUM 2019-05-10 05:22:00 Carlos Lyons [facility] PHOSPHORUS 2019-05-10 05:22:00 Carlos Lyons [facility] NM MYOCARDIAL PERFUSION PET/CT (REST & STRESS) 2019-05-09 14:55: 00 Robbie New [facility] TREADMILL TOLERANCE(NON-NUCLEAR TREADMILL) 2019-05-09 14:24: 27 Unknown, Hl7 Doctor [facility] HEMODIALYSIS INPATIENT 2019-05-09 07:47:24 Rosamaria Maldonado [facility] MAGNESIUM 2019-05-09 05:35:00 Serena Carlos [facility] PHOSPHORUS 2019-05-09 05:35:00 Serena, [facility] COMPREHENSIVE METABOLIC PANEL 2019-05-09 05:35:00 Kate Guido [facility] CBC W/PLT COUNT & AUTO DIFFERENTIAL 2019-05-09 05:35:00 Kate Truong [facility] TRANSFUSION SERVICE REPORT - SCAN 2019-05-08 17:52:07 Provid er, Default Scanning [facility] LIMITED 2D ECHOCARDIOGRAM 2019-05-08 11:40:[address] [facility] PROCALCITONIN 2019-05-08 03:02:00 Serena, Carlos [facility] MAGNESIUM 2019-05-08 03:02:00 Serena [facility] PHOSPHORUS 2019-05-08 03:02:00 Serena [facility] BASIC METABOLIC PANEL (7) 2019-05-08 03:02:00 Idris Murry ph [facility] CBC W/PLT COUNT & AUTO DIFFERENTIAL 2019-05-08 03:02:00 Indra Munguia [facility] (CELLAVISION MANUAL DIFF) 2019-05-08 03:02:00 Idris Murry ph [facility] HEMODIALYSIS INPATIENT 2019-05-08 00:48:36 Rosamaria Maldonado [facility] PREPARE LEUKO-REDUCED RBC 2019-05-07 23:54:[address] [facility] PERIPHERAL VASCULAR REPORT - SCAN 2019-05-07 21:12:27 Provid er, Default Scanning [facility] PERICARDIOCENTESIS 2019-05-07 20:33:00 Robbie [facility] BODY FLUID CULTURE + GRAM STAIN 2019-05-07 19:20:14 Robbie [facility] CYTOLOGY 2019-05-07 19:20:00 Robbie [facility] 2D ECHO W/ DOPPLER (CW/PW/COLOR) 2019-05-07 18:32:29 Coreen New [facility] TRANSFUSION SERVICE REPORT - SCAN 2019-05-07 17:52:09 Provid er, Default Scanning [facility] COMPREHENSIVE METABOLIC PANEL 2019-05-07 06:42:00 Suresh Meadowso c [facility] CBC W/PLT COUNT & AUTO DIFFERENTIAL 2019-05-07 06:42:00 Isacc Meadows Erin [facility] (CELLAVISION MANUAL DIFF) 2019-05-07 06:42:00 Suresh Meadows [facility] PREPARE LEUKO-REDUCED RBC 2019-05-06 23:54:00 Juanpablo Calhoun [facility] TRANSFUSION SERVICE REPORT - SCAN 2019-05-06 18:02:23 Provid er, Default Scanning [facility] CAROTID DOPPLER BILATERAL 2019-05-06 16:05:00 Karen Carranza [facility] REPORT OF PROCEDURE - ENDOSCOPY URL 2019-05-06 13:43:19 Zainab Alves [facility] 2D ECHO W/ DOPPLER (CW/PW/COLOR) 2019-05-06 13:06:03 Coreen New [facility] UPPER ENDOSCOPY 2019-05-06 10:00:00 Zainab Alves [facility] COMPREHENSIVE METABOLIC PANEL 2019-05-06 04:52:00 Angelic Lomeli [facility] MAGNESIUM 2019-05-06 04:52:00 Zamzam Correa [facility] CBC W/PLT COUNT & AUTO DIFFERENTIAL 2019-05-06 04:52:00 [facility] 2019-05-06 04:52:00 Angelic Lomeli [facility] TRANSFUSE LEUKO-REDUCED RED BLOOD CELLS 2019-05-06 03:24:02 Madeline [facility] CBC W/PLT COUNT & AUTO DIFFERENTIAL 2019-05-05 21:10:00 Madeline [facility] BASIC METABOLIC PANEL (7) 2019-05-05 21:09:00 Correa [facility] MAGNESIUM 2019-05-05 21:09:00 Correa [facility] TROPONIN I 2019-05-05 21:09:00 Correa, [facility] ECG 12-LEAD 2019-05-05 20:53:39 Unknown, 7 [facility] ECG 12-LEAD 2019-05-05 20:52:05 Unknown, 7 [facility] [facility] 12-LEAD 2019-05-05 19:34:00 Unknown, 7 [facility] ECG 12-LEAD 2019-05-05 19:32:27 Unknown, 7 [facility] TRANSFUSION SERVICE REPORT - SCAN 2019-05-05 17:52:36 Provid er, Default Scanning [facility] HEMODIALYSIS INPATIENT 2019-05-05 15:16:18 Rosamaria Maldonado Fredy [facility] HEPATITIS B SURFACE ANTIGEN 2019-05-05 15:02:00 Christopher Maldonado [facility]y [facility] OCCULT BLOOD, STOOL 2019-05-05 12:07:[address] [facility] COMPREHENSIVE METABOLIC PANEL 2019-05-05 09:51:[address] [facility] RETICULOCYTE COUNT 2019-05-05 09:51:[address] [facility] BILIRUBIN, DIRECT 2019-05-05 09:51:00 Arm[address] [facility] FERRITIN 2019-05-05 09:51:[address] [facility] IRON, TIBC, % SAT. (WITHOUT FERRITIN) 2019-05-05 09:51:[address] [facility] DIRECT AHG (LUMA)/DIRECT ANTONIA 2019-05-05 09:51:00 Angelic Lomeli [facility] ABORH, MANUAL 2019-05-05 09:51:[address] [facility] CBC W/PLT COUNT & AUTO DIFFERENTIAL 2019-05-05 09:51:00 Kin Lomeli [facility] TRANSFUSE LEUKO-REDUCED RED BLOOD CELLS 2019-05-05 08:35:39 Lj, [facility] TRANSFUSE LEUKO-REDUCED RED BLOOD CELLS 2019-05-05 01:08:39 Lj, [facility] LACTIC ACID, VENOUS 2019-05-05 00:29:00 Lj, [facility] ECG 12-LEAD 2019-05-05 00:27:17 Unknown, Hl7 [facility] TYPE AND SCREEN, AUTOMATED 2019-05-04 20:42:00 Lj, Juanpablo Dalton [facility] URINE CULTURE 2019-05-04 19:53:00 Lj, [facility] URINALYSIS W/ REFLEX URINE CULTURE 2019-05-04 19:53:00 Lj, Terrence ael [facility] LEGIONELLA URINE ANTIGEN 2019-05-04 19:53:00 Lj, [facility] BLOOD CULTURE 2019-05-04 19:29:00 Lj, [facility] MAGNESIUM 2019-05-04 19:29:00 Lj, [facility] PHOSPHORUS 2019-05-04 19:29:00 Lj, [facility] B-TYPE NATRIURETIC FACTOR (BNP) 2019-05-04 19:29:00 Lj, [facility] PT/APTT 2019-05-04 19:29:00 Lj, [facility] TROPONIN I 2019-05-04 19:29:00 Lj, [facility] COMPREHENSIVE METABOLIC PANEL 2019-05-04 19:29:00 Lj, Juanpablo roberts [facility] LACTIC ACID, VENOUS 2019-05-04 19:29:00 Lj, [facility] PROCALCITONIN 2019-05-04 19:29:00 Lj, Juanpablo Valerio [facility] CBC W/PLT COUNT & AUTO DIFFERENTIAL 2019-05-04 19:29:00 Emigdio Calhoun [facility] RAPID INFLUENZA A&B SCREEN 2019-05-04 19:28:00 Lj, Juanpablo franklin [facility] CRITICAL CARE 2019-05-04 18:47:50 Lj, Juanpablo Valerio [facility] XR CHEST 1 VIEW PORTABLE/BEDSIDE 2019-05-04 18:05:00 Lj, Anderson Valerio [facility] BASIC METABOLIC PANEL (7) 2019-04-07 09:34:00 Devyn Lantigua [facility] HEPATIC FUNCTION PANEL 2019-04-07 09:34:00 Devyn Lantigua [facility] PROTHROMBIN TIME/INR 2019-04-07 09:34:00 Devyn Lantigua [facility] CBC W/PLT COUNT & AUTO DIFFERENTIAL 2019-04-07 09:34:00 Alfred Lantigua [facility] BASIC METABOLIC PANEL (7) 2019-03-14 10:32:00 Devyn Lantigua [facility] HEPATIC FUNCTION PANEL 2019-03-14 10:32:00 Devyn Lantigua [facility] PROTHROMBIN TIME/INR 2019-03-14 10:32:00 Devyn Lantigua [facility] CBC W/PLT COUNT & AUTO DIFFERENTIAL 2019-03-14 10:32:00 Alfred Lantigua [facility] BILIRUBIN, DIRECT 2019-03-04 10:00:00 Devyn Lantigua [facility] COMPREHENSIVE METABOLIC PANEL 2019-03-04 10:00:00 Devyn Lantigua [facility] CBC W/PLT COUNT & AUTO DIFFERENTIAL 2019-03-04 10:00:00 Alfred Lantigua [facility] PROTHROMBIN TIME/INR 2019-03-04 09:55:00 Devyn Lantigua [facility] BILIRUBIN, DIRECT 2019-02-03 10:13:00 Wilfred Fenton [facility] COMPREHENSIVE METABOLIC PANEL 2019-02-03 10:13:00 Wilfred Fenton [facility] PROTHROMBIN TIME/INR 2019-02-03 10:12:00 Wilfred Fenton I [facility] CBC W/PLT COUNT & AUTO DIFFERENTIAL 2019-02-03 10:12:00 Wilfred Fenton [facility] US PELVIS WITH DOPPLER 2019-02-03 09:35:00 Rosamaria Maldonado [facility] RHYTHM STRIP - SCAN 2019-01-21 11:42:13 Provider, Default [facility] RHYTHM STRIP - SCAN 2019-01-20 16:02:13 Provider, Default [facility] RHYTHM STRIP - SCAN 2019-01-20 16:02:12 Provider, Default [facility] TRANSFUSION SERVICE REPORT - SCAN 2019-01-19 18:00:57 Provid er, Default Scanning [facility] PREPARE LEUKO-REDUCED RBC 2019-01-18 23:55:00 Wilfred Fenton [facility] TRANSFUSION SERVICE REPORT - SCAN 2019-01-18 18:03:07 Provid er, Default Scanning [facility] FERRITIN 2019-01-18 17:47:00 Litzylaura [facility] IRON, TIBC, % SAT. (WITHOUT FERRITIN) 2019-01-18 17:47:00 Leonidas Gutierrez [facility] LACTATE DEHYDROGENASE (LDH) 2019-01-18 17:47:00 [facility] 2019-01-18 17:47:00 Chele [facility] VITAMIN B12 AND FOLATE 2019-01-18 17:47:00 [facility] CRRT 2019-01-18 15:13:25 Roseanne Zelaya [facility] HEMOGLOBIN AND HEMATOCRIT 2019-01-18 11:17:00 Ye Pool elizabeth [facility] CBC (HEMOGRAM ONLY) 2019-01-18 02:51:00 Ye Pool [facility] TRANSFUSE LEUKO-REDUCED RED BLOOD CELLS 2019-01-17 23:33:32 Ye Pool [facility] TRANSFUSE LEUKO-REDUCED RED BLOOD CELLS 2019-01-17 22:39:14 Ye Pool [facility] HEMODIALYSIS INPATIENT 2019-01-17 21:29:31 GarciaRoseanne [facility] TYPE AND SCREEN, AUTOMATED 2019-01-17 15:35:00 Wilfred Fenton [facility] HLA TYPING CI 2019-01-16 15:56:00 Miller [facility] HLA TYPING CII 2019-01-16 15:56:00 Onelia Maldonadoherine Fredy [facility] FLOW PRA CLASS I WITH REFLEX TO ANTIBODY SPECIFICITY 2018-12 15:56:00 Joel Rosamaria [facility] FLOW PRA CLASS II WITH REFLEX TO ANTIBODY SPECIFICITY 2018-02 15:56:00 Rosamaria Maldonado [facility] BASIC METABOLIC PANEL (7) 2019-01-16 15:56:00 Carley Boston [facility] HEPATIC FUNCTION PANEL 2019-01-16 15:56:00 Carley Boston [facility] PROTHROMBIN TIME/INR 2019-01-16 15:56:00 [facility] ALPHA FETOPROTEIN (AFP), TUMOR MARKER 2019-01-16 15:56:00 [facility] AB SPECIFICITY CLASS I 2019-01-16 15:56:00 Rosamaria Maldonado [facility] CBC W/PLT COUNT & AUTO DIFFERENTIAL 2019-01-16 15:56:00 Frederick Boston Charmaine [facility] RHYTHM STRIP - SCAN 2019-01-08 09:10:11 Provider, Default Scaniman manjarrez [facility] TRANSFUSION SERVICE REPORT - SCAN 2019-01-06 17:50:45 Provid er, Default Scanning [facility] MISCELLANEOUS LAB ORDER 2019-01-06 06:01:00 Erik De Leon [facility] CBC (HEMOGRAM ONLY) 2019-01-06 06:01:00 Jeny Paredes V. [facility] BASIC METABOLIC PANEL (7) 2019-01-06 06:01:00 Jeny Paredes V. [facility] MAGNESIUM 2019-01-06 06:01:00 R[address] [place] [facility] PROTHROMBIN TIME/INR 2019-01-06 06:01:00 Rj Paredeseast [place] Yasmin [facility] HEPATIC FUNCTION PANEL 2019-01-06 06:01:00 [facility] LEUKO-REDUCED RBC 2019-01-05 23:54:00 Vimal Breen [facility] TRANSFUSION SERVICE REPORT - SCAN 2019-01-05 17:50:34 Provid er, Default Scanning [facility] CBC (HEMOGRAM ONLY) 2019-01-05 04:30:00 Rj Paredeseast [place] Yasmin [facility] BASIC METABOLIC PANEL (7) 2019-01-05 04:30:00 Jeny Paredes V. [facility] MAGNESIUM 2019-01-05 04:30:[address] [facility] HEPATIC FUNCTION PANEL 2019-01-05 04:30:00 Jeny Paredes V. [facility] PROTHROMBIN TIME/INR 2019-01-05 04:30:00 Rj Paredeseast [place] Yasmin [facility] PREPARE LEUKO-REDUCED RBC 2019-01-04 23:54:00 Pratik Valdez [facility] TRANSFUSION SERVICE REPORT - SCAN 2019-01-04 17:53:27 Provid er, Default Scanning [facility] DRUG SCREEN, URINE, COMPREHENSIVE 2019-01-04 17:39:00 Laine Roper [facility] DRUG SCREEN, URINE, TRANSPLANT 2019-01-04 17:39:00 Kai Roper [facility] TRANSFUSE LEUKO-REDUCED RED BLOOD CELLS 2019-01-04 14:09:28 Vimal Breen [facility] ETHANOL 2019-01-04 09:42:00 Kai Roper [facility] BASIC METABOLIC PANEL (7) 2019-01-04 04:07:00 Vimal Breen [facility] HEPATIC FUNCTION PANEL 2019-01-04 04:07:00 Vimal Breen [facility] CBC W/PLT COUNT & AUTO DIFFERENTIAL 2019-01-04 04:07:00 Vimal Parsons [facility] TRANSFUSE LEUKO-REDUCED RED BLOOD CELLS 2019-01-04 01:55:28 Pratik Valdez [facility] TYPE AND SCREEN, AUTOMATED 2019-01-03 21:56:00 Pratik Valdez [facility] BASIC METABOLIC PANEL (7) 2019-01-03 21:54:00 Pratik Valdez [facility] HEPATIC FUNCTION PANEL 2019-01-03 21:54:00 Pratik Valdez [facility] PT/APTT 2019-01-03 21:54:00 Pratik Valdez [facility] CBC W/PLT COUNT & AUTO DIFFERENTIAL 2019-01-03 21:54:00 Kin Valdez [facility] REPORT OF PROCEDURE - ENDOSCOPY SCAN 2018-12-31 12:52:49 Pro vider, Default Scanning [facility] TRANSFUSION SERVICE REPORT - SCAN 2018-12-27 18:02:58 Provid er, Default Scanning [facility] RHYTHM STRIP - SCAN 2018-12-27 16:04:17 Provider, Default Scanni [facility] PREPARE LEUKO-REDUCED RBC 2018-12-26 23:54:00 Audie Hoyt CH, I [facility] TRANSFUSION SERVICE REPORT - SCAN 2018-12-26 18:02:50 Provid er, Default Scanning [facility] VANCOMYCIN LEVEL, RANDOM 2018-12-26 03:56:00 Maurice Stern [facility] BASIC METABOLIC PANEL (7) 2018-12-26 03:56:00 Gian [facility] MAGNESIUM 2018-12-26 03:56:00 Gian [facility] PHOSPHORUS 2018-12-26 03:56:00 [facility] HAPTOGLOBIN 2018-12-26 03:56:00 Audie Hoyt [facility] HEPATIC FUNCTION PANEL 2018-12-26 03:56[facility] & AUTO DIFFERENTIAL 2018-12-26 03:56:00 Anahicarekenisha shook [facility] PERIPHERAL VASCULAR REPORT - SCAN 2018-12-25 21:23:01 Provid er, Default Scanning [facility] TRANSFUSE LEUKO-REDUCED RED BLOOD CELLS 2018-12-25 11:12:26 Audie Huerta [facility] TYPE AND SCREEN, AUTOMATED 2018-12-25 08:51:00 Audie Hoyt [facility] BLOOD CULTURE 2018-12-25 08:25:00 Sydney Vasquez [facility] BASIC METABOLIC PANEL (7) 2018-12-25 03:46:00 Gian [facility] MAGNESIUM 2018-12-25 03:46:00 Gian [facility] PHOSPHORUS 2018-12-25 03:46:00 [facility] HEPATIC FUNCTION PANEL 2018-12-25 03:46:00 Placido Zimmerman [facility] PROTHROMBIN TIME/INR 2018-12-25 03:46:00 Placido Zimmerman [facility] LACTATE DEHYDROGENASE (LDH) 2018-12-25 03:46:00 Jacquelin [facility] CBC W/PLT COUNT & AUTO DIFFERENTIAL 2018-12-25 03:46:00 Ciccarel lo, [facility] VENOUS DOPPLER LEGS BILATERAL 2018-12-24 18:55:00 Audie Hoyt [facility] TRANSFUSION SERVICE REPORT - SCAN 2018-12-24 18:02:36 Provid er, Default Scanning [facility] BASIC METABOLIC PANEL (7) 2018-12-24 03:18:00 Ciccarellrafaela Hope [facility] MAGNESIUM 2018-12-24 03:18:00 Ciccarello [facility] PHOSPHORUS 2018-12-24 03:18:00 Ciccarello [facility] CBC W/PLT COUNT & AUTO DIFFERENTIAL 2018-12-24 03:18:00 Ciccarel bouchra [facility] PREPARE LEUKO-REDUCED RBC 2018-12-23 23:54:00 Omero Moura [facility] HEMODIALYSIS INPATIENT 2018-12-23 23:25:30 Adri Soler [facility] CBC (HEMOGRAM ONLY) 2018-12-23 20:04:00 Maurice Stern [facility] TRANSFUSION SERVICE REPORT - SCAN 2018-12-23 18:01:02 Provid er, Default Scanning [facility] BASIC METABOLIC PANEL (7) 2018-12-23 04:01:00 Ciccarebrennan [facility] MAGNESIUM 2018-12-23 04:01:00 [facility] PHOSPHORUS 2018-12-23 04:01:00 [facility] VANCOMYCIN LEVEL, RANDOM 2018-12-23 04:01:00 Shmuel Sosa [facility] HEPATITIS B SURFACE ANTIGEN 2018-12-23 04:01:00 Adri Soler [facility] CBC W/PLT COUNT & AUTO DIFFERENTIAL 2018-12-23 04:01:00 Ciccarel [facility] PREPARE LEUKO-REDUCED RBC 2018-12-22 23:54:00 Víctor Breen [facility] CT LOWER EXTREMITY WITHOUT IV CONTRAST RIGHT 2018-12-22 21:0 4:00 Omero Moura [facility] TRANSFUSION SERVICE REPORT - SCAN 2018-12-22 18:01:22 Provid er, Default Scanning [facility] VANCOMYCIN LEVEL, TROUGH 2018-12-22 16:26:00 Shmuel Sosa [facility] CBC (HEMOGRAM ONLY) 2018-12-22 16:26:00 Christy [facility] TRANSFUSE LEUKO-REDUCED RED BLOOD CELLS 2018-12-22 11:21:40 Omero Hernandes [facility] XR CHEST 1 VIEW PORTABLE/BEDSIDE 2018-12-22 05:29:00 Gian [facility] BASIC METABOLIC PANEL (7) 2018-12-22 03:56:00 Gian [facility] MAGNESIUM 2018-12-22 03:56:00 Gian [facility] PHOSPHORUS 2018-12-22 03:56:00 Gian [facility] LACTIC ACID, VENOUS 2018-12-22 03:56:00 Gian [facility] CBC W/PLT COUNT & AUTO DIFFERENTIAL 2018-12-22 03:56:00 Sharad shook [facility] FIBRINOGEN 2018-12-22 03:55:00 IanShmuel winifred [facility] HEMOGLOBIN AND HEMATOCRIT 2018-12-21 08:29:00 Gian [facility] TRANSFUSE LEUKO-REDUCED RED BLOOD CELLS 2018-12-21 07:30:55 Víctor Breen [facility] POCT-LACTIC ACID, VENOUS 2018-12-21 04:01:00 Víctor Breen Ma [facility] BLOOD CULTURE 2018-12-21 03:04:00 Víctor Breen [facility] AMMONIA 2018-12-21 02:48:00 Víctor Breen [facility] PROCALCITONIN 2018-12-21 02:48:00 Víctor Breen [facility] POCT-LACTIC ACID, VENOUS 2018-12-21 02:01:00 Víctor Breen Ma [facility] BLOOD CULTURE 2018-12-21 01:54:00 Víctor Breen [facility] COMPREHENSIVE METABOLIC PANEL 2018-12-21 01:53:00 Gavino Breen [facility] TROPONIN I 2018-12-21 01:53:00 ReadingVíctor [facility] PT/APTT 2018-12-21 01:53:00 ReadingVíctor [facility] MAGNESIUM 2018-12-21 01:53:00 Reading Víctor [facility] TYPE AND SCREEN, AUTOMATED 2018-12-21 01:53:00 Víctor Breen [facility] CBC W/PLT COUNT & AUTO DIFFERENTIAL 2018-12-21 01:53:00 Víctor Breen [facility] XR CHEST 1 VIEW PORTABLE/BEDSIDE 2018-12-21 01:39:00 [facility] XR KNEE RIGHT COMPLETE (4 VIEWS) 2018-12-21 01:39:00 Julia [facility] ECG 12-LEAD 2018-12-21 01:18:37 Unknown, Hl7 [facility] CRITICAL CARE 2018-12-21 01:10:14 JuliaVíctor mccoy [facility] RHYTHM STRIP - SCAN 2018-11-19 09:00:16 Provider, Default Scanni [facility] TRANSFUSION SERVICE REPORT - SCAN 2018-11-15 17:52:49 Provid er, Default Scanning [facility] CBC W/PLT COUNT & AUTO DIFFERENTIAL 2018-11-15 11:16:00 Panchito Hicks [facility] (MANUAL DIFFERENTIAL) 2018-11-15 11:16:00 Panchito Hicks [facility] HEPATIC FUNCTION PANEL 2018-11-15 04:40:00 Maru Pearson [facility] PROTHROMBIN TIME/INR 2018-11-15 04:40:00 Dariela Pearson [facility] BASIC METABOLIC PANEL (7) 2018-11-15 04:40:[address] [facility] PHOSPHORUS 2018-11-15 04:40:00 Karen Dorantes [facility] CBC W/PLT COUNT & AUTO DIFFERENTIAL 2018-11-15 04:40:00 [facility] LEUKO-REDUCED RBC 2018-11-14 23:54:00 Panchito Hicks [facility] TRANSFUSION SERVICE REPORT - SCAN 2018-11-14 18:03:46 Provid er, Default Scanning [facility] IR TUNNELED DIALYSIS CATHETER 2018-11-14 12:38:00 Marlys Dorantes [facility] HEPATIC FUNCTION PANEL 2018-11-14 05:10:00 Maru Pearson [facility] PROTHROMBIN TIME/INR 2018-11-14 05:10:00 Dariela Pearson [facility] BASIC METABOLIC PANEL (7) 2018-11-14 05:10:00 Al Stephens [facility] CBC W/PLT COUNT & AUTO DIFFERENTIAL 2018-11-14 05:10:00 [facility] TRANSFUSE LEUKO-REDUCED RED BLOOD CELLS 2018-11-13 12:08:04 Panchito Arenas [facility] TYPE AND SCREEN, AUTOMATED 2018-11-13 08:34:00 Panchito Hicks [facility] HEMOGLOBIN AND HEMATOCRIT 2018-11-13 07:51:[address] [facility] HEPATIC FUNCTION PANEL 2018-11-13 05:25:00 Maru Pearson [facility] PROTHROMBIN TIME/INR 2018-11-13 05:25:00 Dariela Pearson sofi [facility] BASIC METABOLIC PANEL (7) 2018-11-13 05:25:00 Al Stephens [facility] PHOSPHORUS 2018-11-13 05:25:00 Karen Dorantes [facility] CBC W/PLT COUNT & AUTO DIFFERENTIAL 2018-11-13 05:25:00 David Okeefe [facility] XR CHEST 2 VIEWS 2018-11-12 21:38:00 Afua Nguyen [facility] HEPATIC FUNCTION PANEL 2018-11-12 03:36:00 Maru Pearson [facility] PROTHROMBIN TIME/INR 2018-11-12 03:36:00 Dariela Pearson [facility] BASIC METABOLIC PANEL (7) 2018-11-12 03:36:00 Kat [facility] CBC W/PLT COUNT & AUTO DIFFERENTIAL 2018-11-12 03:36:00 David Okeefe aidee [facility] PROTEIN, RANDOM URINE 2018-11-12 01:55:00 Karen Dorantes [facility] CREATININE, RANDOM URINE 2018-11-12 01:55:00 Karen Dorantes [facility] HEPATIC FUNCTION PANEL 2018-11-11 03:46:00 Maru Pearsonbillie [facility] PROTHROMBIN TIME/INR 2018-11-11 03:46:00 Dariela Pearson [facility] BASIC METABOLIC PANEL (7) 2018-11-11 03:46:00 Kat Al [facility] CBC W/PLT COUNT & AUTO DIFFERENTIAL 2018-11-11 03:46:00 David Okeefe [facility] (CELLAVISION MANUAL DIFF) 2018-11-11 03:46:00 Yenifer Okeefe [facility] TRANSFUSION SERVICE REPORT - SCAN 2018-11-10 18:01:07 Provid er, Default Scanning [facility] REPORT OF PROCEDURE - ENDOSCOPY URL 2018-11-10 14:04:49 Alfred Lantigua [facility] TISSUE EXAM 2018-11-10 13:25:00 Devyn Lantigua [facility] COLONOSCOPY,BIOPSY 2018-11-10 13:00:00 Devyn Lantigua [facility] HEPATIC FUNCTION PANEL 2018-11-10 04:30:00 Maru Pearson [facility] PROTHROMBIN TIME/INR 2018-11-10 04:30:00 Draiela Pearson [facility] BASIC METABOLIC PANEL (7) 2018-11-10 04:30:[address] [facility] CBC W/PLT COUNT & AUTO DIFFERENTIAL 2018-11-10 04:30:00 David Okeefe [facility] PREPARE LEUKO-REDUCED RBC 2018-11-09 23:54:00 Jeny Paredes V. [facility] URINALYSIS W/ REFLEX URINE CULTURE 2018-11-09 23:07:00 Maryellen Balderrama [facility] BLOOD CULTURE 2018-11-09 18:26:00 [facility] TRANSFUSION SERVICE REPORT - SCAN 2018-11-09 18:02:25 Provid er, Default Scanning [facility] HEMODIALYSIS INPATIENT 2018-11-09 16:56:01 Matty Edmonds [facility] HEMODIALYSIS INPATIENT 2018-11-09 15:25:[address] [facility] HEPATIC FUNCTION PANEL 2018-11-09 03:43:00 Maru Pearson [facility] PROTHROMBIN TIME/INR 2018-11-09 03:43:00 Dariela Pearson sofi [facility] BASIC METABOLIC PANEL (7) 2018-11-09 03:43:[address] [facility] PHOSPHORUS 2018-11-09 03:43:00 Karen Dorantes [facility] CBC W/PLT COUNT & AUTO DIFFERENTIAL 2018-11-09 03:43:00 David Oekefe [facility] TRANSFUSE LEUKO-REDUCED RED BLOOD CELLS 2018-11-08 18:16:10 Michael [facility] TRANSFUSE LEUKO-REDUCED RED BLOOD CELLS 2018-11-08 15:03:23 Michael [facility] MISCELLANEOUS LAB ORDER 2018-11-08 14:39:00 Devyn Lantigua [facility] TYPE AND SCREEN, AUTOMATED 2018-11-08 09:26:00 [facility] 2018-11-08 04:21:00 [facility]u [facility] BASIC METABOLIC PANEL (7) 2018-11-08 04:21:00 Al Stephens [facility] MAGNESIUM 2018-11-08 04:21:00 Kendal [facility] PHOSPHORUS 2018-11-08 04:21:00 Kendal [facility] YARI ANTIGEN WITH REFLEX TO TITER 2018-11-08 04:20:00 Devyn Lantigua [facility] PROTHROMBIN TIME/INR 2018-11-08 04:20:00 Dariela Pearson [facility] YARI ANTIGEN TITER 2018-11-08 04:20:00 Devyn Lantigua [facility] CBC W/PLT COUNT & AUTO DIFFERENTIAL 2018-11-08 04:20:00 David Okeefe [facility] CT CHEST WITH HIGH RESOLUTION/ILD 2018-11-08 00:16:00 Lizz Lantigua [facility] MR ABDOMEN WITH & WITHOUT IV CONTRAST 2018-11-07 18:45:00 Devyn Lantigua [facility] HEPATIC FUNCTION PANEL 2018-11-07 05:24:00 Maru Pearson [facility] PROTHROMBIN TIME/INR 2018-11-07 05:24:00 Dariela Pearson sofi [facility] BASIC METABOLIC PANEL (7) 2018-11-07 05:24:00 [facility] CBC W/PLT COUNT & AUTO DIFFERENTIAL 2018-11-07 05:24:00 David Okeefeaidee [facility] (CELLAVISION MANUAL DIFF) 2018-11-07 05:24:00 SaryYenifer [facility] HEPATIC FUNCTION PANEL 2018-11-06 03:32:00 Maru Pearson [facility] PROTHROMBIN TIME/INR 2018-11-06 03:32:00 Dariela Pearson sofi [facility] BASIC METABOLIC PANEL (7) 2018-11-06 03:32:00 Kat [facility] CBC W/PLT COUNT & AUTO DIFFERENTIAL 2018-11-06 03:32:00 SaryDavid Augustaidee [facility] (CELLAVISION MANUAL DIFF) 2018-11-06 03:32:00 Sary, Yenifersa De Paz a [facility] URINE CULTURE 2018-11-05 20:47:00 Reggie [facility] URINALYSIS W/ MICROSCOPIC 2018-11-05 20:47:00 Reggie [facility] XR CHEST 1 VIEW PORTABLE/BEDSIDE 2018-11-05 20:02:00 Mila Hicks [facility] HEPATITIS B SURFACE ANTIGEN 2018-11-05 15:32:00 Kendal [facility] HEPATITIS B SURFACE ANTIBODY 2018-11-05 15:32:00 Kendal [facility] HEPATITIS B CORE ANTIBODY, TOTAL 2018-11-05 15:32:00 Alber Edmonds [facility] IR NON-TUNNELED DIALYSIS CATHETER INSERTION 2018-11-05 12:10 :00 Kendal [facility] PT/APTT 2018-11-05 05:07:00 [place] [facility] HEPATIC FUNCTION PANEL 2018-11-05 05:07:00 Maru Pearsonbillie [facility] PROTHROMBIN TIME/INR 2018-11-05 05:07:00 Dariela Pearson [facility] BASIC METABOLIC PANEL (7) 2018-11-05 05:07:00 Al Stephens [facility] MAGNESIUM 2018-11-05 05:07:00 Kendal [facility] PHOSPHORUS 2018-11-05 05:07:00 Kendal [facility] CBC W/PLT COUNT & AUTO DIFFERENTIAL 2018-11-05 05:07:00 David Okeefe [facility] (CELLAVISION MANUAL DIFF) 2018-11-05 05:07:00 Yenifer Okeefe a [facility] BLOOD CULTURE 2018-11-04 19:53:00 [facility] URINALYSIS W/ REFLEX URINE CULTURE 2018-11-04 19:52:00 [facility] AMMONIA 2018-11-04 12:42:[address] [facility] HEPATIC FUNCTION PANEL 2018-11-04 03:47:00 Maru Pearson [facility] PROTHROMBIN TIME/INR 2018-11-04 03:47:00 Dariela Pearson sofi [facility] BASIC METABOLIC PANEL (7) 2018-11-04 03:47:00 Al Stephens [facility] MAGNESIUM 2018-11-04 03:47:[address] [facility] CBC W/PLT COUNT & AUTO DIFFERENTIAL 2018-11-04 03:46:00 David Okeefe Hyunna [facility] (CELLAVISION MANUAL DIFF) 2018-11-04 03:46:00 Yenifer Okeefeunn a [facility] HEPATIC FUNCTION PANEL 2018-11-03 04:00:00 Maru Pearson [facility] PROTHROMBIN TIME/INR 2018-11-03 04:00:00 Dariela Pearson [facility] BASIC METABOLIC PANEL (7) 2018-11-03 04:00:00 Bat [facility] CBC W/PLT COUNT & AUTO DIFFERENTIAL 2018-11-03 04:00:00 David Okeefe Hyaidee [facility] HEPATIC FUNCTION PANEL 2018-11-02 05:22:00 Maru Pearson [facility] PROTHROMBIN TIME/INR 2018-11-02 05:22:00 Dariela Pearson [facility] BASIC METABOLIC PANEL (7) 2018-11-02 05:22:00 [facility] CBC W/PLT COUNT & AUTO DIFFERENTIAL 2018-11-02 05:22:00 [facility] 2018-11-01 05:24:00 Maru Pearson [facility] PROTHROMBIN TIME/INR 2018-11-01 05:24:00 Dariela Pearson sofi [facility] BASIC METABOLIC PANEL (7) 2018-11-01 05:24:00 [facility] CBC W/PLT COUNT & AUTO DIFFERENTIAL 2018-11-01 05:24:00 David Okeefe [facility] HEPATIC FUNCTION PANEL 2018-10-31 04:19:00 Maru Pearson [facility] PROTHROMBIN TIME/INR 2018-10-31 04:19:00 Dariela Pearson sofi [facility] BASIC METABOLIC PANEL (7) 2018-10-31 04:19:00 [facility] CBC W/PLT COUNT & AUTO DIFFERENTIAL 2018-10-31 04:19:00 [facility] Care Planned Activity Planned Date Details Comments Source Future Scheduled Test 2021-06-18 00:00:00 Lipid panel (proce dure) [code = 27481786] [facility] r Future Scheduled Test 2019-11-27 00:00:00 IMM Influenza Seas onal Nov to April (>/= 19 yrs) [code = IMM Influenza Seasonal Nov to April (>/= 19 yrs)] [facility] Scheduled Test 2019-10-28 00:00:00 INFLUENZA VACCINE (#1) [code = INFLUENZA VACCINE (#1)] [facility] r Future Scheduled Test 1984 00:00:00 PNEUMOCOCCAL VACCI NE 2-64 YEARS AT RISK (1 of 3 - PCV13) [code = PNEUMOCOCCAL VACCINE 2-64 YEARS AT RISK (1 of 3 - PCV13)] [facility] Instructions GI Bleeding [facility] Encounters Start Date/Time End Date/Time Encounter Type Admission Type Att[facility] Care Department Encounter ID Source 2018-01-28 08:27:07 Inpatient [facility] [id number] [facility] 2018-01-28 01:10:06 Inpatient [facility] [id number] [facility] 2018-01-27 00:00:00 Inpatient [facility] [id number] [facility] 2018-01-25 00:00:00 Inpatient [facility] [id number] [facility] 2019-10-18 10:09:00 2019-10-21 16:45:00 Discharged Inpatient 1 KHLOE BOX [facility] [id number] [facility] 2019-09-26 18:04:00 2019-09-27 19:03:00 Discharged Inpatient 1 KHLOE BOX [facility] [id number] [facility] 2019-01-09 00:00:00 2019-01-09 00:00:00 Outpatient [facility] [id number] [facility] 2018-10-16 12:41:00 2018-10-16 12:41:00 Registered Emergency Room 1 MARYLU DUQUE [facility] [id number] [facility] 2018-09-05 00:00:00 2018-09-05 00:00:00 Outpatient [facility] [id number] [facility] 2018-06-19 00:00:00 2018-06-19 00:00:00 Outpatient [facility] [id number] [facility] 2018-05-27 18:25:00 2018-06-01 07:30:00 Discharged Inpatient 1 KIET DUMAS [facility] [id number] [facility] 2018-01-30 00:00:00 2018-01-30 00:00:00 Outpatient [facility] [id number] [facility] 2018-01-29 00:00:00 2018-01-29 00:00:00 Outpatient [facility] [id number] [facility] 2018-01-24 21:17:42 2018-01-24 21:17:42 Emergency [facility] [id number] [facility] 2018-01-24 20:24:34 2018-01-24 20:24:34 Emergency [facility] [id number] [facility] 2018-01-24 17:21:24 2018-01-24 17:21:24 Inpatient [facility] [id number] [facility] Results Test Description Test Time Test Comments Results Result Comments Source CHEST SINGLE (PORTABLE) 2019-11-01 21:37:00 [place] [address] Patient Name: INDRA GALVAN JR MR #: [id number] : 1980 Age/Sex: 38/M Req #: [id number] Adm Physician: Ordered by: MARYLU KELSEY DO Report #: [id number] Location: ER Room/Bed: Procedure: [id number] DX/CHEST SINGLE (PORTABLE) Exam Date: 11/01/19 Exam Time: 2115 REPORT STATUS: Signed EXAMINATION: CHEST SINGLE (PORTABLE) INDICATION: Y liver cirrohsis [id number] 2115 COMPARISON: 10/18/2019 FINDINGS: AP view TUBES [...] Color (test code = 5778-6) ORANGE YELLOW [facility] hvhowly0842-44-38 10:50:00* Test Item Value Reference Range Interpretation Comments Urine Clarity (test code = 38753-2) CLEAR CLEAR [facility] gravity of Urine by Test strip 2019-10-21 10:50:00* Test Item Value Reference Range Interpretation Comments Urine Specific [facility] (test code = 5811-5) 1.015 1.010-1.02 5 [facility] pH measurement by automated test vbmjb4937-76-35 10:50:00* Test Item Value Reference Range Interpretation Comments Urine pH (test code = 33999-7) 5.5 5-7 [facility] leukocyte esterase detection by dkifxyzi4217-61-89 10:50:00* Test Item Value Reference Range Interpretation Comments Urine Leukocyte Esterase (test code = 5799-2) NEGATIVE NEGATIVE [facility] nitrite xxtwutcbj6854-55-29 10:50:00* Test Item Value Reference Range Interpretation Comments Urine Nitrite (test code = 64471-2) NEGATIVE NEGATIVE [facility] protein measurement by test strip (mass/volume)2019-10-21 10:50:00* Test Item Value Reference Range Interpretation Comments Urine Protein (test code = 5804-0) 2+ NEGATIVE [facility] glucose ccjaxjjcd9231-89-56 10:50:00* Test Item Value Reference Range Interpretation Comments Urine Glucose (UA) (test code = 2349-9) 1+ NEGATIVE [facility] ketones detection by automated test anllw7423-95-27 10:50:00* Test Item Value Reference Range Interpretation Comments Urine Ketones (test code = 96681-2) 1+ NEGATIVE [facility] urobilinogen measurement by test strip (mass/volume)2019-10-21 10:50:00* Test Item Value Reference Range Interpretation Comments Urine Urobilinogen (test code = 57755-5) 8 0.2-1 [facility] total bilirubin measurement (mass/volume)2019-10-21 10:50:00* Test Item Value Reference Range Interpretation Comments Urine Bilirubin (test code = 1978-6) LARGE NEGATIVE [facility] erythrocytes aqqsrpamu2172-23-07 10:50:00* Test Item Value Reference Range Interpretation Comments Urine Blood (test code = 58126-9) LARGE NEGATIVE [facility]viewAutom[facility] urine sediment leukocyte count by microscopy (number/high power field)2019-10-21 10:50:00* Test Item Value Reference Range Interpretation Comments Urine WBC (test code = 5821-4) 0-5 0-5 [facility]viewErythrocytes detection in urine sediment by light oxqkbykfba0056-82-89 10:50:00* Test Item Value Reference Range Interpretation Comments Urine RBC (test code = 20130-6) >50 0-5 [facility]viewBacteria detection in urine sediment by light fuudvfqipf7155-12-50 10:50:00* Test Item Value Reference Range Interpretation Comments Urine Bacteria (test code = 06998-9) MANY NONE [facility]viewEpithelial cells detection in urine sediment by light yyfjbserkj0849-66-27 10:50:00* Test Item Value Reference Range Interpretation Comments Urine Epithelial Cells (test code = 45746-4) MODERATE NONE [facility] or plasma total bilirubin measurement (mass/volume)2019-10-21 10:26:00* Test Item Value Reference Range Interpretation Comments Total Bilirubin (test code = 1975-2) > 25.0 0.2-1.2 [facility] or plasma conjugated bilirubin measurement (mass/volume)2019-10-21 10:26:00* Test Item Value Reference Range Interpretation Comments Direct Bilirubin (test code = 15368-3) > 15.0 0.0-0.5 [facility] or plasma indirect bilirubin measurement (mass/volume)2019-10-21 10:26:00* Test Item Value Reference Range Interpretation Comments Indirect Bilirubin (test code = 1971-1) 10.0 0.3-1.2 [facility] or plasma sodium measurement (moles/volume)2019-10-21 05:20:00* Test Item Value Reference Range Interpretation Comments Sodium Level (test code = 2951-2) 129 136-145 [facility] or plasma potassium measurement (moles/volume)2019-10-21 05:20:00* Test Item Value Reference Range Interpretation Comments Potassium Level (test code = 2823-3) 3.8 3.5-5.1 [facility] or plasma chloride measurement (moles/volume)2019-10-21 05:20:00* Test Item Value Reference Range Interpretation Comments Chloride Level (test code = 2075-0) 97 98-107 [facility] or plasma carbon dioxide, total measurement (moles/volume)2019-10-21 05:20:00* Test Item Value Reference Range Interpretation Comments Carbon Dioxide Level (test code = 2028-9) 19 22-29 [facility] or plasma anion fss2735-45-44 05:20:00* Test Item Value Reference Range Interpretation Comments Anion Gap (test code = 47315-8) 16.8 8-16 [facility] or plasma urea nitrogen measurement (mass/volume)2019-10-21 05:20:00* Test Item Value Reference Range Interpretation Comments Blood Urea Nitrogen (test code = 3094-0) 30 7-26 [facility] or plasma creatinine measurement (mass/volume)2019-10-21 05:20:00* Test Item Value Reference Range Interpretation Comments Creatinine (test code = 2160-0) 3.84 0.72-1.25 [facility] or plasma urea nitrogen/creatinine mass jtdwa7960-71-00 05:20:00* Test Item Value Reference Range Interpretation Comments BUN/Creatinine Ratio (test code = 3097-3) 8 6-25 [facility]viewEstimated glomerular filtration rate (GFR) kztjmxuzuckeh2702-43-05 05:20:00* Test Item Value Reference Range Interpretation Comments Estimat Glomerular Filtration Rate (test code = 849351008) 18 >60 Ranges were taken from the National Kidney Disease Education Program and the [place] [employer] literature.Reference ranges:60 or greater: Qjznhe55-97 ( for 3 consecutive months): Chronic kidney disease 15 or less: Kidney failureCovenant Health PlainviewGlucose izrkhnbwlfd3691-18-71 05:20:00* Test Item Value Reference Range Interpretation Comments Glucose Level (test code = JEX2370) 192 74-118 [facility] or plasma calcium measurement (mass/volume)2019-10-21 05:20:00* Test Item Value Reference Range Interpretation Comments Calcium Level (test code = 13924-0) 7.9 8.4-10.2 [facility]viewFluoroscopic procedure less than one hour xipbyltl6324-35-02 05:20:00* Test Item Value Reference Range Interpretation Comments Aspartate Amino Transf (AST/SGOT) (test code = Aspartate Amino Transf (AST/SGOT)) 59 5-34 [facility]erum or plasma alanine aminotransferase measurement (enzymatic activity/volume)2019-10-21 05:20:00* Test Item Value Reference Range Interpretation Comments Alanine Aminotransferase (ALT/SGPT) (test code = 1742-6) 17 0-55 [facility]erum or plasma protein measurement (mass/volume)2019-10-21 05:20:00* Test Item Value Reference Range Interpretation Comments Total Protein (test code = 2885-2) 5.5 6.5-8.1 [facility] or plasma albumin measurement (mass/volume)2019-10-21 05:20:00* Test Item Value Reference Range Interpretation Comments Albumin (test code = 1751-7) 2.2 3.5-5.0 [facility]viewPlasma globulin measurement (mass/volume) 2019-10-21 05:20:00* Test Item Value Reference Range Interpretation Comments Globulin (test code = 41236-8) 3.3 2.3-3.5 [facility] or plasma albumin/globulin mass xzzkd3604-84-62 05:20:00* Test Item Value Reference Range Interpretation Comments Albumin/Globulin Ratio (test code = 1759-0) 0.7 0.8-2.0 [facility] or plasma alkaline phosphatase measurement (enzymatic activity/volume)2019-10-21 05:20:00* Test Item Value Reference Range Interpretation Comments Alkaline Phosphatase (test code = 6768-6) 128 40-150 [facility]viewBlood leukocytes automated count (number/volume)2019-10-21 05:15:00* Test Item Value Reference Range Interpretation Comments White Blood Count (test code = 6690-2) 12.24 4.8-10.8 [facility]viewBlood erythrocytes automated count (number/volume)2019-10-21 05:15:00* Test Item Value Reference Range Interpretation Comments Red Blood Count (test code = 789-8) 2.18 4.3-5.7 [facility]viewBlood hemoglobin measurement (moles/volume)2019-10-21 05:15:00* Test Item Value Reference Range Interpretation Comments Hemoglobin (test code = 31674-5) 7.8 14.0-18.0 [facility] PlainviewAutomated blood hematocrit (volume fraction)2019-10-21 05:15:00* Test Item Value Reference Range Interpretation Comments Hematocrit (test code = 4544-3) 21.7 38.2-49.6 [facility] PlainviewAutomated erythrocyte mean corpuscular xqrhzc4264-34-63 05:15:00* Test Item Value Reference Range Interpretation Comments Mean Corpuscular Volume (test code = 787-2) 99.5 81-99 [facility] PlainviewAutomated erythrocyte mean corpuscular hemoglobin (mass per erythrocyte)2019-10-21 05:15:00* Test Item Value Reference Range Interpretation Comments Mean Corpuscular Hemoglobin (test code = 785-6) 35.8 28-32 [facility] PlainviewAutomated erythrocyte mean corpuscular hemoglobin concentration measurement (mass/volume)2019-10-21 05:15:00* Test Item Value Reference Range Interpretation Comments Mean Corpuscular Hemoglobin Concent (test code = 786-4) 35.9 31-35 [facility] PlainviewRDW HfrPr-Kqs4671-33-25 05:15:00* Test Item Value Reference Range Interpretation Comments Red Cell Distribution Width (test code = 06420-2) 19.4 11.7 -14.4 [facility] PlainviewAutomated blood platelet count (count/volume)2019-10-21 05:15:00* Test Item Value Reference Range Interpretation Comments Platelet Count (test code = 777-3) 103 140-360 [facility]viewAutformerly [facility] blood segmented neutrophil count as percentage of total xwgsrsofqs5341-76-36 05:15:00* Test Item Value Reference Range Interpretation Comments Neutrophils (%) (Auto) (test code = 18353-5) 91.7 38.7-80.0 [facility] PlainviewAutomated blood lymphocyte count as percentage ot total pusinvcpwk4399-31-38 05:15:00* Test Item Value Reference Range Interpretation Comments Lymphocytes (%) (Auto) (test code = 736-9) 3.9 18.0-39.1 [facility] PlainviewAutomated blood monocyte count as percentage of total sjpieimmdq8813-75-13 05:15:00* Test Item Value Reference Range Interpretation Comments Monocytes (%) (Auto) (test code = 5905-5) 3.3 4.4-11.3 [facility] PlainviewAutomated blood eosinophil count as percentage of total svymnfheqt9427-08-90 05:15:00* Test Item Value Reference Range Interpretation Comments Eosinophils (%) (Auto) (test code = 713-8) 0.0 0.0-6.0 [facility] PlainviewAutomated blood basophil count as percentage of total hhjudvdvvt2399-11-45 05:15:00* Test Item Value Reference Range Interpretation Comments Basophils (%) (Auto) (test code = 706-2) 0.2 0.0-1.0 [facility] PlainviewFluoroscopic procedure less than one hour rwjhqdzk0350-36-70 05:15:00* Test Item Value Reference Range Interpretation Comments IM GRANULOCYTES % (test code = IM GRANULOCYTES %) 0.9 0.0- 1.0 [facility] PlainviewAutomated blood neutrophil count 2019-10-21 05:15:00* Test Item Value Reference Range Interpretation Comments Neutrophils # (Auto) (test code = 751-8) 11.2 2.1-6.9 [facility]viewBlood lymphocytes count (number/volume) 2019-10-21 05:15:00* Test Item Value Reference Range Interpretation Comments Lymphocytes # (Auto) (test code = 33764-3) 0.5 1.0-3.2 [facility]viewBlworthing[facility] monocytes automated count (number/volume)2019-10-21 05:15:00* Test Item Value Reference Range Interpretation Comments Monocytes # (Auto) (test code = 742-7) 0.4 0.2-0.8 [facility] PlainviewAutomated blood eosinophil count 2019-10-21 05:15:00* Test Item Value Reference Range Interpretation Comments Eosinophils # (Auto) (test code = 711-2) 0.0 0.0-0.4 [facility] PlainviewAutomated blood basophil count (count/volume)2019-10-21 05:15:00* Test Item Value Reference Range Interpretation Comments Basophils # (Auto) (test code = 704-7) 0.0 0.0-0.1 [facility] PlainviewFluoroscopic procedure less than one hour izjaepqq2413-40-54 05:15:00* Test Item Value Reference Range Interpretation Comments Absolute Immature Granulocyte (auto (doug t code = Absolute Immature Granulocyte (auto) 0.11 0-0.1 [facility] PlainviewFluoroscopic procedure less than one hour uzpmpaum3930-93-70 05:15:00* Test Item Value Reference Range Interpretation Comments Differential Total Cells Counted (test code = Marcia tial Total Cells Counted) 100 [facility] blood neutrophils/100 leukocytes 2019-10-21 05:15:00* Test Item Value Reference Range Interpretation Comments Neutrophils % (Manual) (test code = 55656-3) 95 40-74 [facility] blood lymphocytes/100 leukocytes 2019-10-21 05:15:00* Test Item Value Reference Range Interpretation Comments Lymphocytes % (Manual) (test code = 737-7) 3 19-48 [facility] blood monocytes/100 leukocytes 2019-10-21 05:15:00* Test Item Value Reference Range Interpretation Comments Monocytes % (Manual) (test code = 744-3) 2 3.4-9.0 [facility] platelets count by estimate (number/volume)2019-10-21 05:15:00* Test Item Value Reference Range Interpretation Comments Platelet Estimate (test code = 54159-8) SLIGHTLY DECREASED [facility]viewPlatelet gqzyqxuylw9435-69-76 05:15:00* Test Item Value Reference Range Interpretation Comments Platelet Morphology Comment (test code = 60405-9) NORMAL [facility] anisocytosis detection by light yyzocpwgyw6903-09-27 05:15:00* Test Item Value Reference Range Interpretation Comments Anisocytosis (test code = 702-1) SLIGHT [facility]viewBlworthington medical center macrocytes detection by light hvcffkyili1276-06-28 05:15:00* Test Item Value Reference Range Interpretation Comments Macrocytosis (test code = 738-5) SLIGHT [facility] dacrocytes detection by light mzemwmkwon2887-75-33 05:15:00* Test Item Value Reference Range Interpretation Comments Tear Drop Cells (test code = 7791-7) FEW [facility]viewRBC srklrqpbko4300-44-47 05:15:00* Test Item Value Reference Range Interpretation Comments Red Cell Morphology Comment (test code = 6742-1) NORMAL 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 [...] Under continuous ultrasound guidance a 5 Fr [employer] needle catheter was advanced into the peritoneal [...] 10/20/19956 COPY TO: MORGAN ROBERTSON MD Phosphorus crgztroqxwt2636-99-16 04:30:00* Test Item Value Reference Range Interpretation Comments Phosphorus Level (test code = GWB4304) 1.8 2.3-4.7 [facility] or plasma thyrotropin measurement by detection limit <= 0.005 miu/l (units/volume)2019-10-20 04:30:00* Test Item Value Reference Range Interpretation Comments Thyroid Stimulating Hormone (TSH) (test code = 41056-4) 0.766 0.350-4.940 [facility]roepecimen source identification of body zfwwn0661-69-00 20:37:00* Test Item Value Reference Range Interpretation Comments Body Fluid Type (test code = 64629-7) PERITONEAL [facility]viewEvaluation of color of body fluid 2019-10-19 20:37:00* Test Item Value Reference Range Interpretation Comments Body Fluid Color (test code = 6824-7) RED AMBERCovenant Health PlainviewDetermination of appearance of body xaqrw1581-01-45 20:37:00* Test Item Value Reference Range Interpretation Comments Body Fluid Appearance (test code = 9335-1) CLOUDY [facility]viewMan[facility] body fluid leukocytes count (number/volume)2019-10-19 20:37:00* Test Item Value Reference Range Interpretation Comments Body Fluid WBC (test code = 6743-9) 88 [facility] body fluid erythrocytes count (number/volume)2019-10-19 20:37:00* Test Item Value Reference Range Interpretation Comments Body Fluid RBC (test code = 6741-3) 2375 [facility] body fluid neutrophils/100 vwremewxxu4625-42-74 20:37:00* Test Item Value Reference Range Interpretation Comments Body Fluid Neutrophils (test code = 61372-6) 20 [facility]viewBody fluid lymphocyte mlnbw6389-20-56 20:37:00* Test Item Value Reference Range Interpretation Comments Body Fluid Lymphocytes (test code = 53059284) 65 [facility]viewBody fluid monocyte hhoos3999-45-45 20:37:00* Test Item Value Reference Range Interpretation Comments Body Fluid Monocytes (test code = 27915-2) 5 [facility]viewBody fluid other cells manual count 2019-10-19 20:37:00* Test Item Value Reference Range Interpretation Comments Body Fluid Other Cells (test code = 428519777) 10 [facility]viewTotal cell uscxg2062-07-84 20:37:00* Test Item Value Reference Range Interpretation Comments Body Fluid Total Cells Counted (test code = 21732-2) 100 [facility] PlainviewProthrombin time (PT) in platelet poor plasma by coagulation ydprn1503-96-64 05:55:00* Test Item Value Reference Range Interpretation Comments Prothrombin Time (test code = 5902-2) 19.4 11.9-14.5 [facility] PlainviewINR in Platelet poor plasma by Coagulation slsrh3639-05-42 05:55:00* Test Item Value Reference Range Interpretation Comments Prothromb Time International Ratio (test code = 6301-6) 1.54 Oral Anticoagulant Therapy INR Values:1. Low Intensity Therapy 1.5 - 2.02 . Moderate Intensity Therapy 2.0 - 3.03. High Intensity Therapy(1) 2.5 - 3. 54. High Intensity Therapy(2) 3.0 - 4.05. Panic Value INR > 5.0 [facility] or plasma mtyoc-8-ohxjnqeosmg.tumor marker measurement (mass/volume)2019-10-19 05:55:00* Test Item Value Reference Range Interpretation Comments Alpha Fetoprotein (test code = 29390-4) 4.1 0.0-8.3 [facility] Electrochemiluminescence Immunoassay(ECLIA)Values obtained wit h different assay methods or kits cannotbe used interchangeably. Results cannot be interpreted asabsolute evidence of the presence or absence of malignantdisea se.This test is not interpretable in females.Performed at: [facility] [address] [place] [address] [id number] Director: Alli Georges MD, Phone: [phone] Houston Healthcare Conroeerum or plasma folate measurement (mass/volume)2019-10-19 05:55:00* Test Item Value Reference Range Interpretation Comments Folate (test code = 2284-8) >20.0 >3.0 A serum folate concentration of less than 3.1 ng/mL isconsidered to represent cl inical deficiency.Performed at: [facility] [address] [id number] Director: Alli Georges MD, Phone: [phone] County Hospital-wLix8166-84-73 21:45:00* Test Item Value Reference Range Interpretation Comments Ammonia (test code = 42578-4) 96 31-123 [facility] ZA8888-61-25 20:02:00 [place] [address] Patient Name: INDRA GALVAN JR MR #: [id number] : Age/Sex: 38/M Req #: [id number] Adm Physician: KHLOE BOX MD Ordered by: MORGAN ROBERTSON MD Report #: [id number] Location: ICU Room/Bed: [place] [address] Procedure: [id number] CT /CT ABDOMEN/PELVIS WO Exam Date: 10/18/19 [...] Automated reticulocyte count as percentage of total yikittqrpzjm1817-65-49 19:40:00* Test Item Value Reference Range Interpretation Comments Percent Reticulocyte Count (test code = 96323-1) 5.3 0.8-2 .2 [facility] or plasma magnesium measurement (mass/volume)2019-10-18 19:40:00* Test Item Value Reference Range Interpretation Comments Magnesium Level (test code = 15025-2) 1.6 1.3-2.1 [facility] or plasma creatine kinase measurement (enzymatic activity/volume)2019-10-18 19:40:00* Test Item Value Reference Range Interpretation Comments Creatine Kinase (test code = 2157-6) 24 30-200 [facility]erum or plasma creatine kinase MB measurement (mass/volume)2019-10-18 19:40:00* Test Item Value Reference Range Interpretation Comments Creatine Kinase MB (test code = 14655-9) 0.40 0-5.0 [facility]viewTroponin I measurement by highly sensitive enzyme atvinjxbqaq8120-85-71 19:40:00* Test Item Value Reference Range Interpretation Comments Troponin I (test code = 76919-3) 0.003 0-0.300 [facility]viewCHEST SINGLE (PORTABLE)2019-10-18 14:56:00 [facility] [address] [place] [address] Patient Name: INDRA GALVAN JR MR #: [id number] : 1980 Age/Sex: 38/M Req #: [id number] Adm Physician: KHLOE BOX MD Ordered by: MARITZA SANTANA MD Report #: [id number] Location: ICU Room/Bed: ICU [facility] Procedure: [id number] DX/ CHEST SINGLE (PORTABLE) Exam Date: 10/18/19 [...] 10/18/191457 COPY TO: MARITZA SANTANA MD ABDOMEN PAXVFGS9639-29-31 14:43:00 [place] [address] Patient Name: INDRA GALVAN JR MR #: [id number] : 1980 Age/Sex: 38/M Req #: [id number] Adm Physician: KHLOE BOX MD Ordered by: MORGAN ROBERTSON MD Report #: [id number] Location: ICU Room/Bed: ICU [facility] Procedure: [id number] US /US ABDOMEN LIMITED Exam Date: 10/18/19 [...] MD Fluoroscopic procedure less than one hour riatlxbl9913-87-15 11:38:00* Test Item Value Reference Range Interpretation [...] under 564(g) of the ACT.Testing performed by [id number] [place], [place] [address]Activated partial thromboplastin time (aPTT) in platelet poor plasma by coagulation mzkyy5461-25-06 08:58:00* Test Item Value Reference Range Interpretation Comments Activated Partial Thromboplast Time (test code = 41777-1) 46.5 23.8-35.5 [facility] plasma iron measurement (mass/volume)2019-10-18 08:58:00* Test Item Value Reference Range Interpretation Comments Iron Level (test code = 2498-4) 125 65-175 [facility] or plasma iron binding capacity measurement (mass/volume)2019-10-18 08:58:00* Test Item Value Reference Range Interpretation Comments Total Iron Binding Capacity (test code = 2500-7) 122 261-4 78 [facility]erum or plasma iron saturation measurement (mass fraction)2019-10-18 08:58:00* Test Item Value Reference Range Interpretation Comments Percent Iron Saturation (test code = 2502-3) 102 15-50 [facility]er[facility] or plasma transferrin measurement (mass/volume)2019-10-18 08:58:00* Test Item Value Reference Range Interpretation Comments Transferrin (test code = 3034-6) 87 174-364 [facility] or plasma ferritin measurement (mass/volume)2019-10-18 08:58:00* Test Item Value Reference Range Interpretation Comments Ferritin (test code = 2276-4) 1212.14 21.81-274.66 [facility]viewBNP Kvz-zLgs7400-35-22 08:58:00* Test Item Value Reference Range Interpretation Comments B-Type Natriuretic Peptide (test code = 66662-2) 1195.9 0-100 [facility]viewBlood cobalamin (vitamin B12) measurement (mass/volume)2019-10-18 08:58:00* Test Item Value Reference Range Interpretation Comments Vitamin B12 Level (test code = 06703-3) 1331 213816 [facility]erum or plasma hepatitis A virus IgM antibody detection by agrdtqulthl4049-04-43 08:58:00* Test Item Value Reference Range Interpretation Comments Hepatitis A IgM Antibody (test code = 72495-6) Negative Negativ e [facility] or plasma hepatitis B virus surface antigen detection by rztvmacodel3097-87-02 08:58:00* Test Item Value Reference Range Interpretation Comments Hepatitis B Surface Antigen (test code = 5196-1) Negative Negat mumtaz [facility] or plasma hepatitis B virus core IgM antibody detection by gzzeprstrui6008-15-03 08:58:00* Test Item Value Reference Range Interpretation Comments Hepatitis B Core IgM Antibody (test code = 51063-5) Negative Ne gative [facility]erum hepatitis C virus antibody hxwggzjsc4567-66-46 08:58:00* Test Item Value Reference Range Interpretation Comments Hepatitis C Antibody (test code = 32494-9) 0.1 0.0-0.9 Negative: < 0.8 Indeterminate: 0.8 - 0.9 Positive: > 0.9 The CDC recommends that a positive HCV antibody result be followed up with a HCV Nucleic Acid Amplification test (366194).Performed at: [address] [id number] Director: Alli Georges MD, Phone: [phone] Health PlainviewBlood leukocytes automated count (number/volume)2019-09-27 05:45:00* Test Item Value Reference Range Interpretation Comments White Blood Count (test code = 6690-2) 7.33 4.8-10.8 [facility] erythrocytes automated count (number/volume)2019-09-27 05:45:00* Test Item Value Reference Range Interpretation Comments Red Blood Count (test code = 789-8) 1.71 4.3-5.7 [facility]view[facility] hemoglobin measurement (moles/volume)2019-09-27 05:45:00* Test Item Value Reference Range Interpretation Comments Hemoglobin (test code = 88885-8) 6.0 14.0-18.0 Results called to CINTHYA TOVAR at 0637 on 09/27/19 by Roland Gore. RB [place]. [facility] PlainviewAutomated blood hematocrit (volume fraction)2019-09-27 05:45:00* Test Item Value Reference Range Interpretation Comments Hematocrit (test code = 4544-3) 17.7 38.2-49.6 Results called to CINTHYA TOVAR at 0637 on 09/27/19 by Roland Gore. RB [place]. [facility]viewAutomated erythrocyte mean corpuscular moexnb2139-82-70 05:45:00* Test Item Value Reference Range Interpretation Comments Mean Corpuscular Volume (test code = 787-2) 103.5 81-99 [facility] PlainviewAutomated erythrocyte mean corpuscular hemoglobin (mass per erythrocyte)2019-09-27 05:45:00* Test Item Value Reference Range Interpretation Comments Mean Corpuscular Hemoglobin (test code = 785-6) 35.1 28-32 [facility] PlainviewAutomated erythrocyte mean corpuscular hemoglobin concentration measurement (mass/volume)2019-09-27 05:45:00* Test Item Value Reference Range Interpretation Comments Mean Corpuscular Hemoglobin Concent (test code = 786-4) 33.9 31-35 [facility] PlainviewRDW XgcQe-Gkj7102-82-01 05:45:00* Test Item Value Reference Range Interpretation Comments Red Cell Distribution Width (test code = 63932-6) 19.9 11.7 -14.4 [facility] PlainviewAutomated blood platelet count (count/volume)2019-09-27 05:45:00* Test Item Value Reference Range Interpretation Comments Platelet Count (test code = 777-3) 108 140-360 [facility] PlainviewAutomated blood segmented neutrophil count as percentage of total vejxxvgbpl9641-63-81 05:45:00* Test Item Value Reference Range Interpretation Comments Neutrophils (%) (Auto) (test code = 61950-0) 74.2 38.7-80.0 [facility] lymphocyte count as percentage ot total dxlaevicjo9146-15-38 05:45:00* Test Item Value Reference Range Interpretation Comments Lymphocytes (%) (Auto) (test code = 736-9) 8.6 18.0-39.1 [facility]viewAutomated blood monocyte count as percentage of total ldouuwwzdk3411-53-88 05:45:00* Test Item Value Reference Range Interpretation Comments Monocytes (%) (Auto) (test code = 5905-5) 12.3 4.4-11.3 [facility]viewAutformerly [facility] blood eosinophil count as percentage of total kjqfaqhtdv6653-61-28 05:45:00* Test Item Value Reference Range Interpretation Comments Eosinophils (%) (Auto) (test code = 713-8) 2.7 0.0-6.0 [facility] PlainviewAutomated blood basophil count as percentage of total lydqjjzdml5116-40-32 05:45:00* Test Item Value Reference Range Interpretation Comments Basophils (%) (Auto) (test code = 706-2) 0.7 0.0-1.0 [facility] PlainviewFluoroscopic procedure less than one hour azlofgsj6519-90-50 05:45:00* Test Item Value Reference Range Interpretation Comments IM GRANULOCYTES % (test code = IM GRANULOCYTES %) 1.5 0.0- 1.0 [facility] PlainviewAutomated blood neutrophil count 2019-09-27 05:45:00* Test Item Value Reference Range Interpretation Comments Neutrophils # (Auto) (test code = 751-8) 5.4 2.1-6.9 [facility] lymphocytes count (number/volume) 2019-09-27 05:45:00* Test Item Value Reference Range Interpretation Comments Lymphocytes # (Auto) (test code = 72436-7) 0.6 1.0-3.2 [facility]viewBlood monocytes automated count (number/volume)2019-09-27 05:45:00* Test Item Value Reference Range Interpretation Comments Monocytes # (Auto) (test code = 742-7) 0.9 0.2-0.8 [facility]viewAutomated blood eosinophil count 2019-09-27 05:45:00* Test Item Value Reference Range Interpretation Comments Eosinophils # (Auto) (test code = 711-2) 0.2 0.0-0.4 [facility] PlainviewAutomated blood basophil count (count/volume)2019-09-27 05:45:00* Test Item Value Reference Range Interpretation Comments Basophils # (Auto) (test code = 704-7) 0.1 0.0-0.1 [facility] PlainviewFluoroscopic procedure less than one hour ggqgdnvf5990-09-39 05:45:00* Test Item Value Reference Range Interpretation Comments Absolute Immature Granulocyte (auto (doug t code = Absolute Immature Granulocyte (auto) 0.11 0-0.1 [facility] plasma sodium measurement (moles/volume)2019-09-27 05:45:00* Test Item Value Reference Range Interpretation Comments Sodium Level (test code = 2951-2) 136 136-145 [facility]er[facility] or plasma potassium measurement (moles/volume)2019-09-27 05:45:00* Test Item Value Reference Range Interpretation Comments Potassium Level (test code = 2823-3) 3.2 3.5-5.1 [facility]er[facility] or plasma chloride measurement (moles/volume)2019-09-27 05:45:00* Test Item Value Reference Range Interpretation Comments Chloride Level (test code = 2075-0) 102 98-107 [facility]roeerum or plasma carbon dioxide, total measurement (moles/volume)2019-09-27 05:45:00* Test Item Value Reference Range Interpretation Comments Carbon Dioxide Level (test code = 2028-9) 28 22-29 [facility]roeerum or plasma anion olb2903-83-39 05:45:00* Test Item Value Reference Range Interpretation Comments Anion Gap (test code = 06440-0) 9.2 8-16 [facility]er[facility] or plasma urea nitrogen measurement (mass/volume)2019-09-27 05:45:00* Test Item Value Reference Range Interpretation Comments Blood Urea Nitrogen (test code = 3094-0) 11 7-26 [facility]er[facility] or plasma creatinine measurement (mass/volume)2019-09-27 05:45:00* Test Item Value Reference Range Interpretation Comments Creatinine (test code = 2160-0) 2.29 0.72-1.25 [facility]erum or plasma urea nitrogen/creatinine mass tsbsd2771-81-13 05:45:00* Test Item Value Reference Range Interpretation Comments BUN/Creatinine Ratio (test code = 3097-3) 5 6-25 [facility] PlainviewEstimated glomerular filtration rate (GFR) nexvhuwbgapjy7765-14-85 05:45:00* Test Item Value Reference Range Interpretation Comments Estimat Glomerular Filtration Rate (test code = 277733503) 32 >60 Ranges were taken from the National Kidney Disease Education Program and the [facility] Kidney Foundation literature.Reference ranges:60 or greater: Szumcx28-81 ( for 3 consecutive months): Chronic kidney disease 15 or less: Kidney failureCovenant Health PlainviewGlucose jrgkyyvblhy5764-72-31 05:45:00* Test Item Value Reference Range Interpretation Comments Glucose Level (test code = MVI7108) 109 74-118 [facility]er[facility] or plasma calcium measurement (mass/volume)2019-09-27 05:45:00* Test Item Value Reference Range Interpretation Comments Calcium Level (test code = 74831-1) 7.9 8.4-10.2 [facility]roeerum or plasma iron measurement (mass/volume)2019-09-27 05:45:00* Test Item Value Reference Range Interpretation Comments Iron Level (test code = 2498-4) 70 65-175 [facility]roeerum or plasma iron binding capacity measurement (mass/volume)2019-09-27 05:45:00* Test Item Value Reference Range Interpretation Comments Total Iron Binding Capacity (test code = 2500-7) 118 261-4 78 [facility]roeerum or plasma iron saturation measurement (mass fraction)2019-09-27 05:45:00* Test Item Value Reference Range Interpretation Comments Percent Iron Saturation (test code = 2502-3) 59 15-50 [facility]erum or plasma transferrin measurement (mass/volume)2019-09-27 05:45:00* Test Item Value Reference Range Interpretation Comments Transferrin (test code = 3034-6) 84 174-364 [facility]erum or plasma ferritin measurement (mass/volume)2019-09-27 05:45:00* Test Item Value Reference Range Interpretation Comments Ferritin (test code = 2276-4) 565.91 21.81-274.66 [facility]er[facility] or plasma total bilirubin measurement (mass/volume)2019-09-27 05:45:00* Test Item Value Reference Range Interpretation Comments Total Bilirubin (test code = 1975-2) 11.4 0.2-1.2 [facility]viewFluoroscopic procedure less than one hour hkqhdqpt1707-41-98 05:45:00* Test Item Value Reference Range Interpretation Comments Aspartate Amino Transf (AST/SGOT) (test code = Aspartate Amino Transf (AST/SGOT)) 63 5-34 [facility]erum or plasma alanine aminotransferase measurement (enzymatic activity/volume)2019-09-27 05:45:00* Test Item Value Reference Range Interpretation Comments Alanine Aminotransferase (ALT/SGPT) (test code = 1742-6) 16 0-55 [facility] PlainviewAmmonia Ecy-xQig1747-38-01 05:45:00* Test Item Value Reference Range Interpretation Comments Ammonia (test code = 88850-7) 129 31-123 [facility]roeerum or plasma lactate dehydrogenase measurement (enzymatic activity/volume)2019-09-27 05:45:00* Test Item Value Reference Range Interpretation Comments Lactate Dehydrogenase (test code = 396804464) 160 125-220 [facility]roeerum or plasma protein measurement (mass/volume)2019-09-27 05:45:00* Test Item Value Reference Range Interpretation Comments Total Protein (test code = 2885-2) 5.8 6.5-8.1 [facility]er[facility] or plasma albumin measurement (mass/volume)2019-09-27 05:45:00* Test Item Value Reference Range Interpretation Comments Albumin (test code = 1751-7) 2.4 3.5-5.0 [facility]viewPlasma globulin measurement (mass/volume) 2019-09-27 05:45:00* Test Item Value Reference Range Interpretation Comments Globulin (test code = 86265-2) 3.4 2.3-3.5 [facility]erum or plasma albumin/globulin mass dqqjx6135-17-47 05:45:00* Test Item Value Reference Range Interpretation Comments Albumin/Globulin Ratio (test code = 1759-0) 0.7 0.8-2.0 [facility]er[facility] or plasma alkaline phosphatase measurement (enzymatic activity/volume)2019-09-27 05:45:00* Test Item Value Reference Range Interpretation Comments Alkaline Phosphatase (test code = 6768-6) 147 40-150 [facility]roeerum or plasma lactate dehydrogenase measurement (enzymatic activity/volume)2019-09-27 05:45:00* Test Item Value Reference Range Interpretation Comments Lactate Dehydrogenase (test code = 012949619) 160 125-220 [facility] PlainviewQualitative serum or plasma hepatitis B virus e antibody by enzyme fqpffmbgxip7062-83-33 05:45:00* Test Item Value Reference Range Interpretation Comments Hepatitis Be Antibody (test code = 30305-6) Negative Negative Performed at: [address] [id number] Shoe Treer: Esdras Lemon MD, Phone: [phone] Houston Healthcare Conroeerum hepatitis B virus e antigen detection by enzyme immunoassay 2019-09-27 05:45:00* Test Item Value Reference Range Interpretation Comments Hepatitis Be Antigen (test code = 91210-2) Negative Negative Performed at: [facility] [address] [place], [place] [id number] Director: Alli Georges MD, Phone: [phone] Health PlainviewUS ABDOMEN BTCIZLII2615-95-90 20:45:00 [facility] [address] [place] [address] Patient Name: INDRA GALVAN JR MR #: [id number] : 1980 Age/Sex: 38/M Req #: [id number] Adm Physician: KHLOE BOX MD Ordered by: LITZY FRYE, VIRGILIO FRYE Report #: [id number] Location: MED/SURG Room/Bed: [facility] Procedure: [id number] US /US ABDOMEN COMPLETE Exam Date: 09/26/19 [...] COPY TO: VIRGILIO GALEANA Stool gastrointestinal hemoglobin lxenozqba9807-77-31 19:32:00* Test Item Value Reference Range Interpretation Comments Stool Occult Blood (test code = 2335-8) POSITIVE NEGATIVE [facility] Conroetool gastrointestinal hemoglobin gvlosmlqs7036-03-49 19:32:00* Test Item Value Reference Range Interpretation Comments Stool Occult Blood (test code = 2335-8) POSITIVE NEGATIVE [facility]viewBlood macrocytes detection by light pebuphhsjo3527-26-66 11:40:00* Test Item Value Reference Range Interpretation Comments Macrocytosis (test code = 738-5) SLIGHT [facility] PlainviewAutomated reticulocyte count as percentage of total jdakmxawjsuq9434-11-51 11:40:00* Test Item Value Reference Range Interpretation Comments Percent Reticulocyte Count (test code = 14923-9) 11.2 0.8-2 .2 [facility] PlainviewProthrombin time (PT) in platelet poor plasma by coagulation loxls6226-73-41 11:40:00* Test Item Value Reference Range Interpretation Comments Prothrombin Time (test code = 5902-2) 20.0 11.9-14.5 [facility] PlainviewINR in Platelet poor plasma by Coagulation pwber3341-20-98 11:40:00* Test Item Value Reference Range Interpretation Comments Prothromb Time International Ratio (test code = 6301-6) 1.60 Oral Anticoagulant Therapy INR Values:1. Low Intensity Therapy 1.5 - 2.02 . Moderate Intensity Therapy 2.0 - 3.03. High Intensity Therapy(1) 2.5 - 3. 54. High Intensity Therapy(2) 3.0 - 4.05. Panic Value INR > 5.0 [facility] PlainviewActivated partial thromboplastin time (aPTT) in platelet poor plasma by coagulation merhk9648-11-68 11:40:00* Test Item Value Reference Range Interpretation Comments Activated Partial Thromboplast Time (test code = 93400-1) 39.4 23.8-35.5 [facility]erum or plasma conjugated bilirubin measurement (mass/volume)2019-09-26 11:40:00* Test Item Value Reference Range Interpretation Comments Direct Bilirubin (test code = 26342-1) 7.7 0.0-0.5 [facility] or plasma indirect bilirubin measurement (mass/volume)2019-09-26 11:40:00* Test Item Value Reference Range Interpretation Comments Indirect Bilirubin (test code = 1971-1) 5.4 0.3-1.2 [facility]er[facility] or plasma creatine kinase measurement (enzymatic activity/volume)2019-09-26 11:40:00* Test Item Value Reference Range Interpretation Comments Creatine Kinase (test code = 2157-6) 22 30-200 [facility]roeerum or plasma creatine kinase MB measurement (mass/volume)2019-09-26 11:40:00* Test Item Value Reference Range Interpretation Comments Creatine Kinase MB (test code = 01663-8) 0.50 0-5.0 [facility] PlainviewTroponin I measurement by highly sensitive enzyme filyhslmzqh0072-85-02 11:40:00* Test Item Value Reference Range Interpretation Comments Troponin I (test code = 59009-3) 0.012 0-0.300 [facility]viewBlood cobalamin (vitamin B12) measurement (mass/volume)2019-09-26 11:40:00* Test Item Value Reference Range Interpretation Comments Vitamin B12 Level (test code = 98530-9) 1410 213-816 [facility]viewCHEST SINGLE (PORTABLE)2019-09-26 11:24:00 [facility] [address] [place] [address] Patient Name: INDRA GALVAN JR MR #: [id number] : 1980 Age/Sex: 38/M Req #: [id number] Adm Physician: Ordered by: MARYLU KELSEY DO Report #: [id number] Location: ER Room/Bed: Procedure: [id number] DX/CHEST SINGLE (PORTABLE) Exam Date: 09/26/19 Exam [...] COPY TO: MARYLU KELSEY DO MR, ABDOMEN, NTHQ6018-85-16 12:54:00FINAL REPORT MRI of the abdomen with [...] Rodriguezort Verified Date/Time: 05/23/2019 12:54:18 Reading Location: [facility] C013X Ortho Consult Reading Room abdomen with/without [...] Rodriguez Verified Date/Time: 05/23/2019 12:54:18 Reading Location: [facility] C013X Ortho Consult Reading Room [facility] Metabolic Amnyu7324-46-89 09:34:00* Test Item Value Reference Range Interpretation [...] mg/dL 70-105 H Calcium (test code = 89205-7) 8.5 mg/dL 8.4-10.2 EGFR (test code = 86065-9) 25 mL/min/1.73 sq m ESTIMATED GFR IS NOT ACCURATE CREATININE CLEARANCE IN PREDICTING GLOMERULAR FILTRATION RATE. ESTIMATED GFR IS NOT APPLICABLE FOR DIALYSIS PATIENTS. PHILLIP (test code = PHILLIP) Director Supply ID - ROSIANGSpecimen moderately icte waldemar Lab Interpretation (test code = 71006-8) Abnormal [facility] METABOLIC ZECUJ4226-13-36 09:34:00* Test Item Value Reference Range Interpretation [...] GFR IS NOT APPLICABLE FOR DIALYSIS PATIENTS. Director Supply ID - ROSASHLEYGSpecimen moderately ictericHepatic function uyqqs6214-07-62 09:29:00* Test Item Value Reference Range Interpretation Comments Protein, Total (test code = 2885-2) 6.5 6.0- 8.3 gm/dL Albumin (test code = 75550-4) 3.4 g/dL 3.5-5 L Total Bilirubin (test code = 1975-2) 5.4 mg/dL 0.2-1.2 H Bilirubin, Direct (test code = 1968-7) 2.6 mg/dL 0.1-0.5 H Alkaline Phosphatase (test code = 6768-6) 200 U/L 40-150 H AST (test code = 1920-8) 46 U/L 5-34 H ALT (test code = 1742-6) 12 U/L 6-55 PHILLIP (test code = PHILLIP) Director Supply ID - ROSIANGSpecimen moderately icte waldemar Lab Interpretation (test code = 41062-7) [facility]normal [facility] CKJYP7710-12-61 09:29:00* Test Item Value Reference Range Interpretation [...] (test code = 347) 12 U/L 6-55 Director Supply ID - ROSIANGSpecimen moderately ictericCBC with platelet count + automated bwbs5356-01-97 09:27:00* Test Item Value Reference Range Interpretation [...] K/CU MM L MPV (test code = 52672-1) 8.4 fL 9.4-12.4 L nRBC (test code [...] % 0-1 Lab Interpretation (test code = 85073-0) Abnormal [facility] W/PLT COUNT & AUTO SPNVQWSSFQZR4654-01-41 09:27:00* Test Item Value Reference Range Interpretation [...] code = 2801) 0 % 0-1 Prothrombin time/TKY3679-40-21 09:19:00* Test Item Value Reference Range Interpretation [...] heart valves. Lab Interpretation (test code = 63661-1) [facility]normal [facility]/JDV9409-19-66 09:19:00* Test Item Value Reference Range Interpretation [...] patie nts wiht mechanical heart valves.MISCELLANEOUS LAB CFKJT7523-27-25 08:04:00* Test Item Value Reference Range Interpretation Comments SCAN RESULT (test code = 4634137) Treadmill tolerance(Non-Nuclear Treadmill)2019-05-15 22:24:56Interface, External Ris In [...] Sera, Hi pinedo (8216) on 05/15/2019 10:24:47 [facility] [id number] 11:48:00* Test Item Value Reference Range Interpretation [...] GFR IS NOT APPLICABLE FOR DIALYSIS PATIENTS. Director Supply ID - VIDYA MSpecimen slightly ictericBILIRUBIN, QLZWOP2125-86-11 11:32:00* Test Item Value Reference Range Interpretation Comments BILIRUBIN DIRECT (BEAKER) (test code = 706) 2.0 mg/dL 0.1-0.5 H HEPATIC FUNCTION [id number] 11:32:00* Test Item Value Reference Range Interpretation [...] (test code = 347) 8 U/L 6-55 Director Supply ID - VIDYA MSpecimen slightly ictericCBC W/PLT COUNT & AUTO KTLRQSOGVRKS6867-41-95 11:30:00* Test Item Value Reference Range Interpretation [...] code = 2801) 1 % 0-1 PROTHROMBIN TIME/UZN6101-87-23 11:25:00* Test Item Value Reference Range Interpretation [...] mechanical heart valves.Body fluid culture + gram josft9395-06-22 15:44:00* Test Item Value Reference Range Interpretation Comments Result (test code = 6463-4) No growth Gram Stain Result (test code = 1123) No organisms seen [facility] + GRAM [id number] 15:44:00 * Test Item Value Reference Range Interpretation Comments CULTURE (BEAKER) (test code = 1095) No growth GRAM STAIN RESULT (BEAKER) (test code = 1123) 1+ White blood cells seen GRAM STAIN RESULT (BEAKER) (test code = 67631) No organisms seen Buudbubro1969-36-85 06:38:00* Test Item Value Reference Range Interpretation Comments Magnesium (test code = 00173-6) 1.9 mg/dL 1.6-2.6 PHILLIP (test code = PHILLIP) Director Supply ID - ULYSSES M Lab Interpretation (test code = 68772-0) [facility] 06:38:00* Test Item Value Reference Range Interpretation Comments Phosphorus (test code = 2777-1) 3.4 mg/dL 2.3-4.7 PHILLIP (test code = PHILLIP) Director Supply ID - ULYSSES M Lab Interpretation (test code = 29865-4) Normal [facility]OS[facility]US2020-03-14 06:38:00* Test Item Value Reference Range Interpretation Comments PHOSPHORUS (BEAKER) (test code = 604) 3.4 mg/dL 2.3-4.7 Director Supply ID - ULYSSSE MOXUFXPDGQ8322-58-38 06:38:00* Test Item Value Reference Range Interpretation Comments MAGNESIUM (BEAKER) (test code = 627) 1.9 mg/dL 1.6-2.6 Director Supply ID - ULYSSES MBlood Culture - Routine (Left Venipuncture)2019-05-09 20:01:00* Test Item Value Reference Range Interpretation Comments Result (test code = 6463-4) No growth in 5 days [facility] HospitalBLOOD TQAQVAZ8413-09-59 20:01:00* Test Item Value Reference Range Interpretation Comments CULTURE (BEAKER) (test code = 1095) No growth in 5 days BLOOD CDALHDW4846-91-15 20:00:00* Test Item Value Reference Range Interpretation Comments CULTURE (BEAKER) (test code = 1095) No growth in 5 days Oezuibly0326-88-15 16:28:00* Test Item Value Reference Range Interpretation Comments Case Report (test code = 104) Medical Cytology Report Case: [id number] Authorizing Provider: Robbie New MD Collected: 05/07/20191919 Ordering Location: [address] Received: 05/08/2019 1445 Pathologist: Iman Yang MD Specimen: Pericardial DIAGNOSIS (test code = 3220) [file] XGZzMjRccWxcbGFuZzEwMzNcaGljaFxmMVxkYmNoXG GiJLekC2lzEjRlReQjApm7TDFyhBSiALZkPxe5JBQybASuXWPUuFbwrJ6wKDVyaIjzfX7ibBY7ABYsyt ZvyCJJoJ3mFHBCnU4oClO9RxJlGqN8QDLeTFjnoXNpaH0= CPT Code(s) (test code = 3357) q2tttFXgNFDztZBnOmBxMDQoMPMkp0lsXTPxlMFfDsAsDhHmStTaSllvsSIiATYlAcTmj0lcb703cTFb m4dkUHCoGfZ3kQUkUYUxyNIiY518r6bmf0lzocIzmRX1EIPeCDA8UCsoruHepdV4PZrxpLMpHcA4VKew djSgREzmxkYbrfUeRwz8PSKcT570HPK7lSkfe9ztCO V0JSZaLFDgXqVuMm6zbROeZ709DTKdTFVZHPMdwJt8XDXpdvVwkyIhvEPNd054T774u8nrZQTrvmSaaI oFdscrh4ujV126HPLwgQPmkhPeXlVaIMHrdTSnjLG1SSHrFK3hsqyxJkJhUI5knycfDaUvVU0icvy3Al PlKW5tkwkaOpJdORgjECVkoqgjHIDie6KwjfusYV0x S4Vzo0F5jC9yfBRiPAKazIArUjOlFJBpow9ubMSjHRwvr8KjXPM2pxN0gDOtdFQwAVEaSZ02Lfbbz6Ax CubcNAN4GNWujqQew1Gdg5qaOjLbqqDhI1xqN7UfQXRqITMnHKInSwUieeWoq2Jmc2KczJKamPf6w7aq VDQdCUZasCkxr8uuGOB1GWDuH4E6kPPon4taGEhgDY YlxFY0ajpjBXnsFUVajgD5nfmmXIdeKJDzkLZ5olhkBRhxFSJsDxY1zrjnMFaoYXGpIPO6IAyet035RR S5KHvjNxguEVbdCDIbmcXvndPvwOreYRIbOKWaRSwiSECwZZzwNQYkNLCnRwJnqHwgfDthaG7aAiMzFe XgHFneSS1aVGGxO5kmtXFoQJQkLMBnM0ewQrLpaX0zhKzlPObeizCvBAh8SDQ6SZWjvo5= CLINICAL DATA (test code = 3355) z9qfyJNgLRIeeBPhHcEsMWFhULHgm3fhZBTxlHRxKvIeNmKiVuBgOvuonULtTYJoOwMpo4xcv047tUWa x5wjULObJxT1oICiUUHvjLMwL992w7jtq1rjpdGdbMJ0SAPdYTX6YXbsgrNsziN9TLjwfTMeGrL2ROyw cqZlZIxqixWhkkBzQej5HNOtG812YZI0gNecl9sqKP N7VBDtNXMjWjPsPr1bcTYyD981BHNeAIQYSAKwlHt8HNWfdcYieoBzsTDSu449X648w8nbEVOvktKwnV jVgusha8pnP169VQWdyLHkrqBiFyJgXFAhuODboIF7TTAjLF5rchuiXyFhGM3hbofhVpMjMS4ygxg8Vc GlUZ9voqguZbNkUWsmHHMiexgiZYFrh0ZujgfcDW4i T1Kfj0R5wG3tnSYzRMHrsPYsFaAaWKBgwn2vmXOtWAhte6MkQRU3wrP2dUUqoITnQNSyBQ42Zlbpa7Yc FysyKDV7NNArrsNef2Kqm5maGyQkwvHaE6ejK0HrNLCpIXOuXTOnVyUplqZwp4Gcn2LobTAhcZu7e8dh BLWjSUHdjLerq8tzICD8BWUeZ0L0qVAlz3nvFHodFA NptHI3ewnrBXcvAOOzdaG3vnydKIvaULTkwYC6dracZYdjFAOhBfR7isznQCjzGTQwHGO7YCbuf658GN W7XQswJejlYUryXYUizpOwfzTwsCmuHVDeUMTyZJieHMDlXLbgPWNdXLQkQqMpkGstvDmgtP4lBfQpAl FyVOpqQO4dEDUyD1btfNOlRLJfDZZnU8whZeDfuA9p dXleXBzzkpMzUVUbimlkGHDhyQGpOJNuRcBuqL1cGDHkyCZdsA7bgKCnvKObeN== SPECIMEN SOURCE (test code = 3377) p9zxjYWzXNAcaUXrDfMcRCInHFRce5opSRFleZXfCdXiLzKxRoByOzwulXMoVVDoXlXmk8hwi300vWOq p0gxIVObPwL9lGZgDZQznHNiL787i8gjt1yxmvWnlJA2XPRuZFC7KCydttCcidG5LWfayPHaMjW2QHto rjTsYZknioFclaXlGme7IKCeB743FAL7hEtmq6yhRR F5ACTgZGOqRpRpDq4itTLyF478HCHsOMPQXOHluIu0VOWbeoLpfvYdyIGXk106J645h3juRVEyifUbqR dDussab5srK542HDVxaAAgpsZwJdAtPNMkvNKqyUK7VXHsLO6fuzmmBpNnZJ3qxtnoQxRiSF8jfvk5Po YnBU8zsjrnEvHfAUpfGHHvzwbjYUJez4BhxapyTB7i Q3Gnk6P8dX1zfMHiJFExfQTfPcTiLMOqqz2caCDrXNyba4RtFOO2aoH0oHQfsQMdKIIyPD86Wtjeg0Vg VlikUFJ1NMKjucWbi8Lom4udMdZumzDxT5ogZ7VyOBDpEVSuFDOxNpEkuvRqe9Lba3LhoDMqaQz4w1ua GRCgJSHjjGgjo5xrXTV4NHYuO5Z0wCNzz1emOSijMK XemME3fujeNGbiDCQbyvK4ffpiWThbWXDeiJG3wfzgNRuxFDDbUnW7yegdLCeoDMQxQOJ4VPxie593XE A9ESkiLirgZIumENPhttHbonLtiThjUPPjPFPvXGseJEFrWVurYPHiBLMvQqNcnGhlsDqcmQ3pRpCiDa AhBNsnZT2oSHYnK1raqHMfPHKcVGWqX6kqQwEggH3z aFxmMFxmczIwIFBFUklDQVJESUFMIEZMVUlEXHBhcn0= GROSS DESCRIPTION (test code = 3366) r4ueiDRxKZJfkKEjXiYfJXEvZGXdw2biZWTpuBFzDfUrBlDcSrBfLagyuOOsXALhTmTpb6tet908eDXw z8chYLCkBoL3sIYrGJBgkKPuP116KEWiSEhgx4lbw8FsJUZepMWui5J4GMCUzasynOu5lTozK40zh2N7 VplkV4afTKOuPVYeZ9NwNV7nWVAjMmd1FIW9CGP2MB KwRPKkQ9OnEE9vNKVfsAHxCLr6z7cziJjkWJUnYEG2h2xjRZoutsSaSM7xug2jyXm5n3asziHcYQWzTJ UdqNMDHLAuI3GbyCtkTp2zoEo7bNqnIybiUVV3Bwr9QB9ovt25xid6oYyoZSZsvtpsCvJ4KPbgXMYwmv fpOUd6FBuwTGRvuXboOSxvUURfwcjvBSgtZOGrpQhf ZFlvJSIiNvpoHEncOZWwMSD0ATpes409SLU7QCykd4fel7khuCGaQyd9HUOpTvFzSeiqAKwmz4Rco2ke MWQouc5rGQL3rYMffKpnr9K8hTYsEHAymYKpyzPxTQVfBbV5VVbhWX9xuo64LNHpUIF3sn4qqMPzhJpb btIuhNDyHFemC2QmWAMdi742UFEnB8TdKWYqe3R8vj YbNtYuTJYptKC8ceV3OZKaIVo1uGAbipB8tcWtoBNxO7hnxD88HcFssOMsR6MyyV38WrUrlVFnV5UkiL 98BlCnxVYfT9KwmE49WxFemSLdIIVbuJQeVr8xaCJkzWJsz5MjtRGeXYheC13fa425JORdzyJvP0jpdG DqautiwIRnzhqjPAbqbhB8XNJfJSCpOPilSGVnBRXx GdOnvLKfZdLpVqHmeCbqcFonHBheChKaOXFuWBmzH1muBgBjWzPuQsP9KVWumPeyJEZyx30dhQOpcUBi OQspWBZbkEUxy6BaybDteGRlLEVgfTwxG9IkDUmbMKDqJEMtCQTwqsEIIZEocVJkUSjpCMAkApXlBFMz cn0= STATEMENT OF ADEQUACY (test code = 2757) Satisfactory Gross assessment was performed at (test code = 2777) [facility], Department of Pathology, [address] [place] [address], Technical component was performed at (test code = 2778 ) [facility], Department of Pathology, [address] [place] [address], Professional component was performed at (test code = 2 779) [facility], Department of Pathology, [address] [place] [address], [facility]2020-[facility]-13 16:28:00Medical Cytology Report Case: [id number] Authorizing Provider: Robbie New MD Collected: 05/07/2019 1920 Ordering Location: [place] [address] CCU Received: 05/08/2019 1445 Pathologist: Iman Yang MD Specimen: Pericardial PERICARDIAL FLUID (CYTOSPINS): - NEGATIVE FOR MALIGNANCY Signing Pathologist Direct Phone Line: [phone] signed by Iman Yang MD on 05/09/2019 at 4:28 [id number] effusion, cirrhosisPERICARDIAL BHEGS290 mls bloody fluid; 4 cytospinsCollected: 031 120Received: [id number] [facility], Department of P athology, [address] [place] [address], [facility], Department of Pathology, [address] [place] [address] 77 030, [facility], Department of Pathology, [address] [place] [address], HKD/CT, CARDIAC PERF REST AND LOOOLO6731-60-80 16:05:00Reason for exam:->CADFINAL REPORT PROCEDURE: MYOCARDIAL PERFUSION PET IMAGING (Rest/Stress)CPT CODE: 81669 INDICATION: Assess symptoms/risk factors of possible CAD [...] Verified Date/ Time: 05/09/2019 16:05:35 Reading Location: [address] Myocardial Perfusion Pet/CT (Rest & Stress)2019-05-09 16:05:00Interface, External Ris In - 05/09/2019 4:07 PM CDTFINAL REPORT PROCEDURE: MYOCARDIAL PERFUSION PET IMAGING (Rest/Stress)CPT CODE: 28729 INDICATION: Assess symptoms/risk factors of possible CAD [...] MDReport Verified Date/Time: 05/09/2019 16:05:35 Reading Location: [address] Reading Room [facility] HospitalCom[facility] metabolic kjdub7516-45-61 06:54:00* Test Item Value Reference Range Interpretation Comments Protein, Total (test code = 2885-2) 6.1 6.0- 8.3 gm/dL Specimen slightly hemolyzed Albumin (test code = 38484-3) 2.9 g/dL 3.5-5 L Specimen slightly hemolyzed [...] mg/dL 70-105 H Calcium (test code = 50062-9) 8.1 mg/dL 8.4-10.2 L AST (test code = 1920-8) 30 U/L 5-34 Spe cimen slightly hemolyzed ALT (test code = 1742-6) 8 U/L 6-55 Spe cimen slightly hemolyzed EGFR (test code = 52971-2) 16 mL/min/1.73 sq m ESTIMATED GFR IS NOT ACCURATE CREATININE CLEARANCE IN PREDICTING GLOMERULAR FILTRATION RATE. ESTIMATED GFR IS NOT APPLICABLE FOR DIALYSIS PATIENTS. PHILLIP (test code = PHILLIP) Director Supply ID - ULYSSES MSpecimen slightly icteric Lab Interpretation (test code = 07272-4) Abnormal [facility]PRE[facility] METABOLIC IYZCS1767-52-67 06:54:00* Test Item Value Reference Range Interpretation [...] GFR IS NOT APPLICABLE FOR DIALYSIS PATIENTS. Director Supply ID - ULYSSES MSpecimen slightly ictericCBC W/PLT [...] (test code = 2801) 1 % 0-1 SLMGJPDUP9457-42-74 06:50:00* Test Item Value Reference Range Interpretation Comments MAGNESIUM (BEAKER) (test code = 627) 2.1 mg/dL 1.6-2.6 Specimen slightly hemolyzed Director Supply ID - ULYSSES MJDEDEBKAPR5238-78-54 06:50:00* Test Item Value Reference Range Interpretation Comments PHOSPHORUS (BEAKER) (test code = 604) 3.4 mg/dL 2.3-4.7 Specimen slightly hemolyzed Director Supply ID - ULYSSES MLimited 2D Mvcastnffyryqd0464-10-74 13:37:26Ejection FractionSLEH ECHO HEARTLAB MKCKESSON CPACSInterface, External Ris In - 05/08/2019 1:37 PM CDTTransthoracic Echocardiography Report (TTE) Demographics Patient Name INDRA GALVAN Date of Study 05/08/2019 YAN CORDERO Gender Male Visit Number [id number] Race Unknown Room Number 6213 Number Date of 1980 Referring Physician ROBBIE NEW Age 38 year(s) Hotel Valet Attendant Renny Yepez Insurance Loss Control Surveyor Nick Navarro I nterpreting Brandy Jackson MD [...] Signature Electronically signed by Vic Caruso MD([facility]) on 05/08/2019 01:37 PM Findings Technical Quality: Technically adequate e xam. Left Ventricle Normal left ventricular chamber size. Normal wall thickness. Normal overall left ventricular systolic function. No apparent segmental wall motion abnormalities. Estimated LVEF by qualitative assessment is normal (>60%) . Left Atrium LA size is hhhu-qi-agiffbjzod enlarged . Right Ventricle Normal right ventricle [...] Ao Root S of Yasmin.: 3.23 cm [facility]2D [facility] W/Doppler(CW/PW/Color)2019-05-08 09:47:52Ejection FractionSLEH ECHO HEARTLAB MKCKESSON CPACSInterface, External Ris In - 05/08/2019 9:48 AM CDTTransthoracic Echocardiography Report (TTE) Demographics Patient Name INDRA GALVAN Date of Study 05/07/2019 YAN CORDERO Gender Male Visit Number [id number] Race Unknown Room Number 6213 Number Date of 1980 Referring Robbie New MD Physician Age 38 year(s) Hotel Valet Attendant Aneudy Jerez Interpreting Vic Caruso Physician Fellow [...] A moderate-large circumferential pericardial effusion is present. [facility] HospitalManual Edfeecpkrarg7431-64-29 07:53:00* Test Item Value Reference Range Interpretation [...] Poikilocytes (test code = 966) 1+ few [place] Cells (test code = 474) 1+ few Artifact (test code = 3432) Present Platelet Conc (test code = 3438) Adequate PHILLIP (test code = PHILLIP) Director Supply ID - Ivonne Espinal comments: Slide comm ents: Lab Interpretation (test code = 54768-7) Abnormal [facility] W/PLT COUNT & AUTO CIEJGIWVCYDH3416-78-26 07:53:00* Test Item Value Reference Range Interpretation [...] (CELLAVISION)(BEAKER) (test code = 3438) Cheryl quate Director Supply ID - Ivonne Espinal comments: Slide comments: Ankxixfxahuuk8796-30-93 04:01:00* Test Item Value Reference Range Interpretation Comments Procalcitonin (test code = 20772-1) 3.64 ng/mL <0.05 H PHILLIP (test code = PHILLIP) SEPSIS RISK (ng/mL)Low: 0.05-0.50Intermediate: 0.51-2.00High: >=2.01 Lab Interpretation (test code = 85111-6) Abnormal [facility] HospitalAflujuLOKUBZANSSOEC7667-94-37 04:01:00* Test Item Value Reference Range Interpretation Comments PROCALCITONIN (BEAKER) (test code = 3036) 3.64 ng/mL <0.05 H SEPSIS RISK (ng/mL)Low: 0.05-0.50Intermediate: 0.51-2.00High: > =2.01BASIC METABOLIC CZXBZ8189-21-13 03:47:00* Test Item Value Reference Range Interpretation [...] GFR IS NOT APPLICABLE FOR DIALYSIS PATIENTS. Director Supply ID - LAUREN WSpecimen moderately tijljmkHHUUMIFSPK3781-43-23 03:44:00* Test Item Value Reference Range Interpretation Comments PHOSPHORUS (BEAKER) (test code = 604) 2.2 mg/dL 2.3-4.7 L Director Supply ID - LAUREN ECPREHWHVL8409-08-40 03:44:00* Test Item Value Reference Range Interpretation Comments MAGNESIUM (BEAKER) (test code = 627) 1.8 mg/dL 1.6-2.6 Director Supply ID Tanja AGUILAR WPrepare Leuko-Red PBD9937-72-01 23:54:00* Test Item Value Reference Range Interpretation Comments CROSSMATCH (test code = 2264) COMPATIBLE Unit ABO (test code = 6385065) B Pos UNIT NUMBER (test code = 934-0) [id number] Status (test code = 8065083) TX_TIMEINCHART Blood Bank Product (test code = 2263) RED BLOOD CELLS PRODUCT CODE (test code = 933-2) [id number] [facility] HospitalCarotid doppler flvejawqu3856-88-44 16:57:29 Ejection FractionSLEH ECHO HEARTLAB MKCKESSON CPACSRight Impression1. The internal audit director al carotid artery is within normal limits.2. [...] CDTPV LAB - Carotid Duplex Study Demograp [facility] Patient Name INDRA GALVAN Date of Study 05/06/2019 YAN CORDERO Age 38 Visit Number [id number] Gender Male Accession Elizabeth tinajero [id number] Date of 1980 Referring Radha Carranza Room Number 3112 Physician SONIDOAlfred Hotel [employer]et Attendant Cb Maki S Interpreting Karen Blackwell, Physician [...] ! !+-------- -------+----+----+-----+ + + +!Prox Subclav sahley!187 ! !60 ! ! ! !+ + ----+----+-----+ + + + - There is antegrad e vertebral flow noted on the left side. - Additional Measurements:ICAPSV/CCAPS V 0.96.ICAEDV/CCAEDV 1.42.[facility] W/PLT COUNT & AUTO SVQNWTLMOUDL8644-51-52 11:24:00* Test Item Value Reference Range Interpretation [...] (CELLAVISION)(BEAKER) (test code = 3438) Cheryl quate Director Supply ID - Marcella OverholtUser comments: Slide comments: COMPREHENSIVE METABOLIC DILJH7768-05-22 07:21:00* Test Item Value Reference Range Interpretation [...] GFR IS NOT APPLICABLE FOR DIALYSIS PATIENTS. Director Supply ID - ULYSSES MSpecimen slightly hgjbcsm1G Echo W/Doppler(CW/PW/Color) 2019-05-06 15:24:38Ejection FractionSLEH ECHO HEARTLAB MKCKESSON CPACSInterface, External Ris In - 05/06/2019 3:24 PM CDTTransthoracic Echocardiography Report (TTE) Demographics Patient Name INDRA GALVAN Date of Study 05/06/2019 YAN CORDERO Gender Male Visit Number [id number] Race Unknown Room Number 2454 Number Date of 1980 Referring Robbie New MD Physician Age 38 year(s) Hotel Valet Attendant Aneudy Jerez Insurance Loss Control Surveyor Joanna Whitley Interpreting Pratik Alexis MD Procedure [...] Velocity: 2.75 m/s TR Gradient: 30.26 mmHg [facility] HospitalUrine jjkgimf5328-35-30 10:47:00* Test Item Value Reference Range Interpretation Comments Result (test code = 6463-4) <10,000 col/mL skin chase [facility] W/PLT COUNT & AUTO ARVBGOBHFZRB3856-61-18 09:56:00* Test Item Value Reference Range Interpretation [...] (CELLAVISION)(BEAKER) (test code = 3438) Cheryl quate Director Supply ID - Giselle RuckerEdwin comments: Slide comments: WBC: SEGMENTED WI TH TOXIC GRANULATIONS PRESENT ECG 12 fmys6300-53-85 06:34:13Interface, External Ris In - 05/06/2019 6:34 AM CDTVentricular Rate 128 BPMAtrial Rate 89 BPMQRS Duration 94 msQ-T Interval 336 msQTC Calculation(Bazett) 490 msR [place] 151 degreesT [place] -88 degreesAtrial fibrillationLeft posterior fascicular blockST & T wave abnormality, consider inferior ischemiaST & T wave abnormality, consider anterolateral ischemiaAbnormal ECGWhen compared with ECG of 05-MAY-2019 20:52,Atrial fibrillation PresentInverted T waves have replaced nonspecific T wave abnormality in Inferior leadsInverted T waves have replaced nonspecific T wave abnormality in Anterolateral leadsConfirmed by MD CHELA, INDRA Simon ([id number]) on 05/06/2019 6:34:11 [facility]COM[facility] OYFFW3275-18-71 06:25:00* Test Item Value Reference Range Interpretation [...] GFR IS NOT APPLICABLE FOR DIALYSIS PATIENTS. Director Supply ID - ULYSSES MSpecimen moderately bkrjxntHIHZGIDFU5115-52-57 06:24:00* Test Item Value Reference Range Interpretation Comments MAGNESIUM (BEAKER) (test code = 627) 1.9 mg/dL 1.6-2.6 Director Supply ID - ULYSSES MBASIC METABOLIC JYDHP3259-64-19 21:58:00* Test Item Value Reference Range Interpretation [...] GFR IS NOT APPLICABLE FOR DIALYSIS PATIENTS. Director Supply ID - José Miguelimen moderately ictericTroponin K7791-80-79 21:56:00* Test Item Value Reference Range Interpretation Comments Troponin I (test code = 77454-9) <0.01 0-0.03 PHILLIP (test code = PHILLIP) [...] failure, acidosis, acute neurological disease, and persistent tachyarrhythmia.Director Supply ID - BS Lab Interpretation (test code = 10926-0) Normal [facility] HospitalTROPONI [id number] 21:56:00* Test Item Value Reference Range Interpretation [...] acidosis, acute neurological disease, and per sistent tachyarrhythmia.Director Supply ID - KFHUOEOPLIO8675-94-91 21:49:00* Test Item Value Reference Range Interpretation Comments MAGNESIUM (BEAKER) (test code = 627) 1.8 mg/dL 1.6-2.6 Specimen slightly hemolyzed Director Supply ID - BSCBC W/PLT COUNT & AUTO FRIFBZQFSPOO7366-35-84 21:32:00* Test Item Value Reference Range Interpretation [...] 2801) 1 % 0-1 Hepatitis B surface zjavsmq3687-05-43 17:35:00* Test Item Value Reference Range Interpretation Comments HBsAg Screen (test code = 5195-3) Nonreactive Nonreactive PHILLIP (test code = PHILLIP) Director Supply ID - BS Lab Interpretation (test code = 56311-2) Normal [facility] HospitalHEPATITIS B SURFACE [id number] 17:35:00* Test Item Value Reference Range Interpretation Comments HEPATITIS B SURFACE ANTIGEN (2) (BEAKER) (test code = 2585) Nonreactive Nonreactive Director Supply ID - BSOccult blood, iqunv1329-76-24 14:45:00* Test Item Value Reference Range Interpretation Comments Occult blood (test code = 2335-8) Negative Negative Lab Interpretation (test code = 35950-9) Normal [facility] HospitalOCCULT BLOOD, DRREW3703-33-07 14:45:00* Test Item Value Reference Range Interpretation Comments FECAL OCCULT BLOOD (BEAKER) (test code = 618) Negative Negative Ffilrfkf8615-56-69 10:41:00* Test Item Value Reference Range Interpretation Comments Ferritin (test code = 2276-4) 1081 ng/mL 5-275 H PHILLIP (test code = PHILLIP) Director Supply ID - AAHAMID Lab Interpretation (test code = 41894-3) Abnormal [facility] HospitalFERRITIN2020-03-09 10:41:00* Test Item Value Reference Range Interpretation Comments FERRITIN (BEAKER) (test code = 361) 1081 ng/mL 5-275 H Director Supply ID - AAHAMIDDirect AHG (LUMA)/Direct Rxrwvi9232-84-35 10:38:00* Test Item Value Reference Range Interpretation Comments Direct AHG-IGG (test code = 1006-6) NEGATIVE Direct AHG-C3B, C3D (test code = 1003-3) NEGATVIE [facility], [id number] 10:28:00* Test Item Value Reference Range Interpretation Comments ABO Grouping (test code = 2588) B Rh Factor (test code = 2589) POS [facility] [id number] 10:25:00* Test Item Value Reference Range Interpretation [...] GFR IS NOT APPLICABLE FOR DIALYSIS PATIENTS. Director Supply ID - ROZINA LSpecimen moderately ictericIron, TIBC, % sat. (without ferritin)2019-05-05 10:21:00* Test Item Value Reference Range Interpretation Comments Iron (test code = 2498-4) 88.0 ug/dL 40-160 TIBC (test code = 2500-7) 130 ug/dL 250-450 L Iron % Saturation (test code = 2502-3) 68 % 20-55 H PHILLIP (test code = PHILLIP) Director Supply ID - ROZINA L Lab Interpretation (test code = 60325-9) [facility], % SAT. (WITHOUT FERRITIN)2019-05-05 10:21:00* Test Item Value Reference Range Interpretation Comments IRON (BEAKER) (test code = 547) 88.0 ug/dL 40.0-160.0 TOTAL IRON BINDING CAPACITY (BEAKER) (test code = 769) 130 ug/dL 250-450 L IRON % SATURATION (2) (BEAKER) (test code = 2590) 68 % 20-5 5 H Director Supply ID - ROZINA LBILIRUBIN, [id number] 10:20:00* Test Item Value Reference Range Interpretation Comments BILIRUBIN DIRECT (BEAKER) (test code = 706) 3.0 mg/dL 0.1-0.5 H Director Supply ID - ROZINA LCBC W/PLT COUNT & AUTO [id number] 10:08:00* Test Item Value Reference Range Interpretation [...] code = 2801) 1 % 0-1 Reticulocyte [id number] 10:04:00* Test Item Value Reference Range Interpretation Comments % Retic (test code = 12214-5) 2.3 % 0.5-1.8 H PHILLIP (test code = PHILLIP) Director Supply ID - [id number] Lab Interpretation (test code = 11908-6) [facility]normal [facility]IC[facility]TE [id number] 10:04:00* Test Item Value Reference Range Interpretation Comments RETICULOCYTE COUNT PCT (BEAKER) (test code = 575) 2.3 % 0.5- 1.8 H Director Supply ID - [id number] acid, [id number] 00:50:00* Test Item Value Reference Range Interpretation Comments Lactate, Venous (test code = 2872) 2.6 mmol/L 0.5-2.2 H PHILLIP (test code = PHILLIP) Director Supply ID - PIAYA LSpecimen slightly icteri c Lab Interpretation (test code = 70933-6) [facility]normal [facility]LACT[facility] AC[facility], [id number] 00:50:00* Test Item Value Reference Range Interpretation Comments LACTATE BLOOD VENOUS (2) (BEAKER) (test code = 2872) 2.6 mmol/L 0 .5-2.2 H Director Supply ID - PIAYA LSpecimen slightly ictericStrep pneumoniae [id number] 21:50:00* Test Item Value Reference Range Interpretation Comments Strep pneumoniae Antigen (test code = 39071-2) Presump tive negative for pneumococcal pneumonia - [...] the test. Lab Interpretation (test code = 25285-0) [facility] PNEUMONIAE [id number] 21:50:00* Test Item Value Reference Range Interpretation Comments STREP PNEUMONIAE ANTIGEN ([facility]) (test code = 1615) P resumptive negative for pneumococcal pneumonia - see comment Presumptive negative for pneumococcal pneumonia - see commen Presumptive negative for pneumococcal pneumonia, suggesting no current or recent pneumococcal infection. Infection due to S. pneumoniae cannot be ruled out since the antigen present in the sample may be below the detection limit of the test. Legionella antigen, grvma1670-38-18 21:49:00* Test Item Value Reference Range Interpretation Comments Legionella Urine Antigen (test code = 67836-5) Negative - see comme nt Negative for L. pneumophila serogroup 1 antigen, suggesting no recent or current infection with this serogroup. Legionellosis cannot be ruled out since other serogroups and species may cause disease. [facility]ION[facility]LLA ANTIGEN, [id number] 21:49:00* Test Item Value Reference Range Interpretation Comments L. PNEUMOPHILA SEROGP 1 UR AG ([facility]) (test code = 11 56) Negative - see comment Negative for L. pneu mophila serogroup 1 antigen, suggesting no recent or current infection with this serogroup. Legionellosis cannot be ruled out since other serogroups and species may cause disease. Type and screen, automated ([facility] and [facility] only)2019-05-04 21:22:00* Test Item Value Reference Range Interpretation Comments ABO/RH AUTOMATED ([facility]) (test code = 2260) B POSITIVE Ab Scrn (test code = 890-4) NEGATIVE [facility] HospitalPROCAL[facility]ONIN2020-03-08 20:32:00* Test Item Value Reference Range Interpretation Comments PROCALCITONIN ([facility]) (test code = 3036) 14.51 ng/mL <0.05 HH SEPSIS RISK (ng/mL)Low: 0.05-0.50Intermediate: 0.51-2.00High: > =2.01Urinalysis w/Microscopic + Reflex to Tmffveu7363-37-51 20:25:00* Test Item Value Reference Range Interpretation Comments Color, UA (test code = 5778-6) Yellow Clarity, UA (test code = 5767-9) Hazy Specific [place], UA (test code = 5811-5) 1.011 1.001-1.035 pH, UA (test code = 5803-2) 5.5 5.0-8.0 Protein, UA (test code = 60240-7) 100 mg/dL Negative A Glucose, UA (test code = 365) 100 mg/dL Negative A Ketones, UA (test code = 2514-8) Negative Negative Bilirubin, UA (test code = 73958-6) Negative Negative Blood, UA (test code = 56076-6) Negative Negative Nitrite, UA (test code = 5802-4) Negative Negative Leukocytes, UA (test code = 5799-2) Negative Negative Urobilinogen, UA (test code = 93832-4) 0.2 mg/dL 0.2-1 RBC, UA (test code = 16177-4) 7 /HPF WBC, UA (test code = 5821-4) 12 /HPF Bacteria, UA (test code = 19338-7) Occasional Mucus (test code = 8247-9) Rare Squam Epithel, UA (test code = 81196-8) 18 /HPF Hyaline Casts, UA (test code = 19249-5) 78 /LPF Casts (test code = 9842-6) 70 /LPF Crystals, Urine (test code = 31996-9) Occasional Yeast (test code = 45941-5) Moderate Specimen Source (test code = 2795) PHILLIP (test code = PHILLIP) Director Supply ID - [auto]Director Supply ID - tech Lab Interpretation (test code = 12189-9) [facility] URINE [id number] 20:25:00* Test Item Value Reference Range Interpretation [...] 1585) Moderate SOURCE(BEAKER) (test code = 2795) Director Supply ID - [auto]Director Supply ID - techPT/aRMQ5514-82-11 20:11:00* Test Item Value Reference Range Interpretation Comments Protime (test code = 5902-2) 18.9 11.9- 14.2 seconds H INR (test code = 6301-6) 1.6 <=5.9 PTT (test code = 71299-5) 40.7 22.5- 36.0 seconds H PHILLIP (test code = PHILLIP) Effective 07/24/2018: PT Refe rence Range ChangeNew: 11.9- 14.2 Previous: 11.7-14.7 RECOMMENDED COUMADIN/WARFARIN INR THERAPY RANGESSTANDARD DOSE: 2.0-3.0 Includes: PROPHYLAXIS for venous thrombosis, sys temic embolization; TREATMENT for venous thrombosis and/or pulmonary embolus.HIGH RISK: Target INR is 2.5-3.5 for patients wiht mechanical heart valves. Lab Interpretation (test code = 11029-9) Abnormal [facility] HospitalPT/OJWP6060-56-94 20:11:00* Test Item Value Reference Range Interpretation [...] Range Interpretation Comments BNP (test code = 26167-7) 612 pg/mL 0-100 H PHILLIP (test code = PHILLIP) Director Supply ID - DB Lab Interpretation (test code = 33593-4) Abnormal [facility] HospitalRapid Influenza A&B Hfujai0218-84-46 20:00:00* Test Item Value Reference Range Interpretation Comments Rapid Influenza A Antigen (test code = 97877-5) Negative Negative, Inconclusive Rapid influenza B Antigen (test code = 08485-9) Negative Negative, Inconclusive Lab Interpretation (test code = 75065-6) Normal [facility] HospitalB-TYPE NATRIURETIC FACTOR (BNP)2019-05-04 20:00:00 * Test Item Value Reference Range Interpretation Comments B-TYPE NATRIURETIC PEPTIDE (BEAKER) (test code = 700) 612 pg/mL 0-100 H Director Supply ID - DBTROPONIN N0829-41-40 20:00:00* Test Item Value Reference Range Interpretation [...] acidosis, acute neurological disease, and per sistent tachyarrhythmia.Director Supply ID - DBRAPID INFLUENZA A&B WKYZZA8240-87-54 20:00:00* Test Item Value Reference Range Interpretation Comments RAPID INFLUENZA A AG (BEAKER) (test code = 1622) Negative Negative, Inconclusive RAPID INFLUENZA B AG (BEAKER) (test code = 1623) Negative Negative, Inconclusive URNPKOUBTX9865-28-14 19:54:00* Test Item Value Reference Range Interpretation Comments PHOSPHORUS (BEAKER) (test code = 604) 2.9 mg/dL 2.3-4.7 Director Supply ID - JMVTUQVSQJT0757-45-22 19:54:00* Test Item Value Reference Range Interpretation Comments MAGNESIUM (BEAKER) (test code = 627) 2.0 mg/dL 1.6-2.6 Director Supply ID - DBCOMPREHENSIVE METABOLIC UJULZ3949-20-58 19:54:00* Test Item Value Reference Range Interpretation [...] GFR IS NOT APPLICABLE FOR DIALYSIS PATIENTS. Director Supply ID - DBSpecimen slightly ictericCBC W/PLT COUNT [...] = 2801) 1 % 0-1 LACTIC ACID, [id number] 19:48:00* Test Item Value Reference Range Interpretation Comments LACTATE BLOOD VENOUS (2) (BEAKER) (test code = 2872) 2.7 mmol/L 0 .5-2.2 H Specimen slightly hemolyzed Director Supply ID - DBSpecimen slightly ictericCRITICAL DRMF3245-06-96 18:47:50Juanpablo Calhoun MD 05/04/2019 9:12 PMCritical CarePerformed [...] condition and r eview of old charts. [facility] HospitalRAD, CHEST, 1 VIEW, NON DEPT 2019-05-04 [...] MDReport Verified Date/Time: 05/04/2019 18:08:08 Reading Location: [facility] C013T Transitional Reading Room chest 1 view portable / mzyifpz6731-97-07 18:08:00Interface, External Ris In - 05/04/2019 6:10 PM CDTFINAL REPORT EXAM: Chest one view COMPARISON: December 22, 2018 Clinical history: Weakness FINDINGS: There is persistent cardiomegaly. There is interval improvement in pulmonary edema. The right internal jugular chest tunneled dialysis catheter appears unchanged in position. The regional osseous structures are unremarkable Signed: Sadiq Haines MDReport Verified Date/Time: 05/04/2019 18:08:08 Reading Location: [facility] C013T Transitional Reading Room [facility] HospitalBASIC METABOLIC [id number] 11:09:00* Test Item Value Reference Range Interpretation [...] GFR IS NOT APPLICABLE FOR DIALYSIS PATIENTS. Director Supply ID - LMSpecimen slightly ictericHEPATIC FUNCTION [id number] 11:04:00* Test Item Value Reference Range Interpretation [...] (test code = 347) 12 U/L 6-55 Director Supply ID - LMSpecimen slightly ictericPROTHROMBIN TIME/[id number] 10:47:00 * Test Item Value Reference Range [...] mechanical heart valves.CBC W/PLT COUNT & AUTO SOPECCQHBISO6820-66-84 10:40:00* Test Item Value Reference Range Interpretation [...] = 2801) 0 % 0-1 BASIC METABOLIC [id number] 11:22:00* Test Item Value Reference Range Interpretation [...] GFR IS NOT APPLICABLE FOR DIALYSIS PATIENTS. Director Supply ID - NTPSpecimen slightly ictericHEPATIC FUNCTION [id number] 11:09:00* Test Item Value Reference Range Interpretation [...] (test code = 347) 16 U/L 6-55 Director Supply ID - NTPSpecimen slightly ictericCBC W/PLT COUNT [...] = 2801) 0 % 0-1 No clotPROTHROMBIN TIME/VQG6352-15-13 11:03:00* Test Item Value Reference Range Interpretation [...] patie nts wiht mechanical heart valves.COMPREHENSIVE METABOLIC WYTAJ9779-91-67 12:23:00* Test Item Value Reference Range Interpretation [...] APPLICABLE FOR DIALYSIS PATIENTS. Specimen slightly ictericBILIRUBIN, [id number] 12:18:00* Test Item Value Reference Range Interpretation Comments BILIRUBIN DIRECT (BEAKER) (test code = 706) 2.4 mg/dL 0.1-0.5 H CBC W/PLT COUNT & AUTO [id number] 12:16:00* Test Item Value Reference Range Interpretation [...] code = 2801) 1 % 0-1 PROTHROMBIN TIME/[id number] 12:09:00* Test Item Value Reference Range Interpretation [...] patie nts wiht mechanical heart valves.HLA TYPING [id number] 21:42:00* Test Item Value Reference Range Interpretation [...] and its performance characteristics determined by the [facility] Laboratory. It has not been cleared [...] to perform high complexity clinical laboratory testing. [facility] HospitalHLA TYPING [id number] 21:42:00* Test Item Value Reference Range Interpretation [...] and its performance characteristics determined by the [facility] Laboratory. It has not been cleared [...] to perform high complexity clinical laboratory testing. [facility] HospitalCOMPREHENSIVE METABOLIC [id number] 12:19:00* Test Item Value Reference Range Interpretation [...] APPLICABLE FOR DIALYSIS PATIENTS. Specimen moderately ictericBILIRUBIN, [id number] 12:18:00* Test Item Value Reference Range Interpretation Comments BILIRUBIN DIRECT ([facility]) (test code = 706) 4.1 mg/dL 0.1-0.5 H U/S, PELVIS, WITH [id number] 11:35:00Reason for Exam:->esrd/kidney transplant evaluationFINAL REPORT Pelvic [...] MDReport Verified Date/Time: 02/03/2019 11:35:01 Reading Location: [address] Radiology Reading Room pelvis with wzuwqjl7859-72-70 11:35:00Interface, External Ris In - 02/03/2019 11:37 [...] Verified Date/Time: 02/03/2019 11:35:01 Reading Locati on: [address] Radiology Reading Room [facility] HospitalPROTHROMBIN TIME/[id number] 11:12:00* Test Item Value Reference Range Interpretation [...] mechanical heart valves.CBC W/PLT COUNT & AUTO BOGVNXAUFJSV5315-34-81 11:10:00* Test Item Value Reference Range Interpretation [...] 2801) 1 % 0-1 AB SPECIFICITY CLASS [id number] 09:48:00* Test Item Value Reference Range Interpretation Comments AB Specificity Class I (test code = 3457) NO CLASS I A NTIBODY DETECTED WITH MFIs > 4000 PHILLIP (test code = PHILLIP) Disclaimer: This test was de veloped and its performance characteristics determined by the [facility]. It has not been cleared [...] to perform high complexity clinical laboratory testing. [facility] HospitalFLOW PRA CLASS I WITH REFLEX TO ANTIBODY [id number] 10:06:00* Test Item Value Reference Range Interpretation Comments Flow Class I Percent Positive (test code = 3229) 20 PHILLIP (test code = PHILLIP) Disclaimer: This test was de veloped and its performance characteristics determined by the [facility] Laboratory. It has not been cleared [...] to perform high complexity clinical laboratory testing. [facility] HospitalFLOW PRA CLASS II WITH REFLEX TO ANTIBODY DEHAZKQPVKC4383-59-13 10:06:00* Test Item Value Reference Range Interpretation Comments Flow Class II Percent Positive (test code = 3231) 0 PIHLLIP (test code = PHILLIP) Disclaimer: This test was de veloped and its performance characteristics determined by the [facility] Laboratory. It has not been cleared [...] to perform high complexity clinical laboratory testing. [facility] HospitalMISCELLANEOUS LAB [id number] 07:41:00* Test Item Value Reference Range Interpretation Comments SCAN RESULT (test code = 9010777) Oypzvjprnip0526-41-73 19:31:00* Test Item Value Reference Range Interpretation Comments Haptoglobin (test code = 4542-7) 14 mg/dL 14-258 Lab Interpretation (test code = 18232-7) Normal [facility] HospitalHAPTOGLOBIN2019-11-23 19:31:00* Test Item Value Reference Range [...] % 20-5 5 H Vitamin B12 and Sgnmvf9789-23-29 19:16:00* Test Item Value Reference Range Interpretation Comments Vitamin B12 (test code = 2132-9) 1988 pg/mL 213-816 H Folate (test code = 2284-8) 17.8 ng/mL >=7.0 Lab Interpretation (test code = 24088-7) Abnormal [facility] HospitalVITAMIN B12 AND [id number] 19:16:00* Test Item Value Reference Range Interpretation Comments VITAMIN B12 (BEAKER) (test code = 774) 1988 pg/mL 213-816 H FOLATE (BEAKER) (test code = 362) 17.8 ng/mL >=7.0 [id number] 19:04:00* Test Item Value Reference Range Interpretation Comments FERRITIN (BEAKER) (test code = 361) 1523 ng/mL 5-275 H Lactate dehydrogenase (LDH)2019-01-18 18:27:00* Test Item Value Reference Range Interpretation Comments LDH (test code = 2532-0) 192 U/L 125-220 Lab Interpretation (test code = 26809-8) Normal [facility] HospitalLACTATE DEHYDROGENASE (LDH)2019-01-18 18:27:00* Test Item Value Reference Range Interpretation Comments LACTATE DEHYDROGENASE (BEAKER) (test code = 635) 192 U/L 125-2 20 Hemoglobin and xtobldambs8451-72-37 11:26:00* Test Item Value Reference Range Interpretation Comments Hemoglobin (test code = 786-4) 7.5 13.7- 17.5 GM/DL L Hematocrit (test code = 4544-3) 23.0 % 40.1-51 L Lab Interpretation (test code = 70291-9) Abnormal [facility] HospitalHEMOGLOBIN AND [id number] 11:26:00* Test Item Value Reference Range Interpretation [...] K/CU MM L MPV (test code = 11443-1) 10.1 fL 9.4-12.4 nRBC (test code = 413) 0 0- 0 /100 WBC Lab Interpretation (test code = 83593-2) [facility]normal [facility] ONLY)2019-01-18 03:09:00* Test Item Value [...] WBC 0 -0 Alpha fetoprotein (AFP), tumor bdxuor6269-48-29 17:58:00* Test Item Value Reference Range Interpretation Comments Alpha-Fetoprotein (test code = 1834-1) 2.7 ng/mL <10.0 Lab Interpretation (test code = 88030-9) Normal [facility] HospitalALPHA FETOPROTEIN (AFP), TUMOR [id number] 17:58:00* Test Item Value Reference Range Interpretation Comments ALPHA-FETOPROTEIN (BEAKER) (test code = 1094) 2.7 ng/mL <10.0 BASIC METABOLIC [id number] 17:09:00* Test Item Value Reference Range Interpretation [...] FOR DIALYSIS PATIENTS. Specimen moderately ictericHEPATIC FUNCTION [id number] 17:08:00* Test Item Value Reference Range Interpretation [...] Specimen moderately ictericCBC W/PLT COUNT & AUTO CGNRKVEMUUJH1256-74-20 16:55:00* Test Item Value Reference Range Interpretation [...] code = 2801) 0 % 0-1 PROTHROMBIN TIME/[id number] 16:52:00* Test Item Value Reference Range Interpretation [...] patie nts wiht mechanical heart valves.BASIC METABOLIC [id number] 07:35:00* Test Item Value Reference Range Interpretation [...] NOT APPLICABLE FOR DIALYSIS PATIENTS. Specimen markedly isuycxyFXXDYCFAL5486-75-23 07:18:00* Test Item Value Reference Range Interpretation Comments MAGNESIUM (BEAKER) (test code = 627) 2.1 mg/dL 1.6-2.6 HEPATIC FUNCTION [id number] 07:18:00* Test Item Value Reference Range Interpretation [...] 347) 16 U/L 6-55 Specimen markedly ictericPROTHROMBIN TIME/PIP9661-28-14 06:41:00* Test Item Value Reference Range Interpretation [...] = 413) 0 /100 WBC 0 -0 [id number] 05:08:00* Test Item Value Reference Range Interpretation Comments MAGNESIUM (BEAKER) (test code = 627) 2.0 mg/dL 1.6-2.6 HEPATIC FUNCTION [id number] 05:08:00* Test Item Value Reference Range Interpretation [...] 18 U/L 6-55 Specimen markedly ictericBASIC METABOLIC [id number] 05:08:00* Test Item Value Reference Range Interpretation [...] APPLICABLE FOR DIALYSIS PATIENTS. Specimen markedly ictericPROTHROMBIN TIME/HBR5522-61-13 04:55:00* Test Item Value Reference Range Interpretation [...] = 413) 0 /100 WBC 0 -0 Ofnrdiz6899-42-79 10:14:00* Test Item Value Reference Range Interpretation Comments Ethanol Lvl (test code = 5643-2) <10 <=10 mg/dL Lab Interpretation (test code = 72832-0) Normal [facility] HospitalETHANOL2019-11-09 10:14:00* Test Item Value Reference Range Interpretation Comments ETHANOL (BEAKER) (test code = 400) < mg/dL <=10 BASIC METABOLIC [id number] 05:20:00* Test Item Value Reference Range Interpretation [...] FOR DIALYSIS PATIENTS. Specimen markedly ictericHEPATIC FUNCTION [id number] 05:19:00* Test Item Value Reference Range Interpretation [...] Specimen markedly ictericCBC W/PLT COUNT & AUTO [id number] 05:05:00 * Test Item Value Reference Range [...] = 2801) 0 % 0-1 BASIC METABOLIC [id number] 22:30:00* Test Item Value Reference Range Interpretation [...] FOR DIALYSIS PATIENTS. Specimen markedly ictericHEPATIC FUNCTION [id number] 22:26:00* Test Item Value Reference Range Interpretation [...] = 347) 15 U/L 6-55 Specimen markedly ictericPT/[id number] 22:22:00* Test Item Value Reference Range Interpretation [...] mechanical heart valves.CBC W/PLT COUNT & AUTO [id number] 22:19:00* Test Item Value Reference Range Interpretation [...] code = 2801) 1 % 0-1 BLOOD [id number] 11:00:00* Test Item Value Reference Range Interpretation Comments CULTURE (BEAKER) (test code = 1095) No growth in 5 days HEPATIC FUNCTION [id number] 09:42:00* Test Item Value Reference Range Interpretation [...] 347) 17 U/L 6-55 Specimen markedly ictericBLOOD IIXGRTW2309-07-94 08:00:00* Test Item Value Reference Range Interpretation Comments CULTURE (BEAKER) (test code = 1095) No growth in 5 days BLOOD [id number] 08:00:00* Test Item Value Reference Range Interpretation Comments CULTURE (BEAKER) (test code = 1095) No growth in 5 days BLOOD [id number] 08:00:00* Test Item Value Reference Range Interpretation Comments CULTURE (BEAKER) (test code = 1095) No growth in 5 days TDCFPCWXVZM4316-81-67 05:03:00* Test Item Value Reference Range Interpretation Comments HAPTOGLOBIN (BEAKER) (test code = 366) < mg/dL 14-258 L BASIC METABOLIC [id number] 05:02:00* Test Item Value Reference Range Interpretation [...] NOT APPLICABLE FOR DIALYSIS PATIENTS. Specimen markedly lgkqwqmGBQSPUFYHL9862-48-52 04:44:00* Test Item Value Reference Range Interpretation Comments PHOSPHORUS (BEAKER) (test code = 604) 4.4 mg/dL 2.3-4.7 [id number] 04:44:00* Test Item Value Reference Range Interpretation Comments MAGNESIUM (BEAKER) (test code = 627) 2.1 mg/dL 1.6-2.6 CBC W/PLT COUNT & AUTO [id number] 04:40:00* Test Item Value Reference Range Interpretation [...] = 2801) 0 % 0-1 Vancomycin level, rtmibi8963-38-52 04:39:00* Test Item Value Reference Range Interpretation Comments Vancomycin Rm (test code = 64801-3) 16.4 ug/mL PHILLIP (test code = PHILLIP) Reference Range: No Normals [facility] HospitalVANCOMYCIN LEVEL, [id number] 04:39:00* Test Item Value Reference Range Interpretation Comments VANCOMYCIN RANDOM (BEAKER) (test code = 523) 16.4 ug/mL Reference Range: No NormalsLACTATE DEHYDROGENASE (LDH)2018-12-25 13:28:00* Test Item Value Reference Range Interpretation Comments LACTATE DEHYDROGENASE (BEAKER) (test code = 635) 242 U/L 125-2 20 H Venous doppler legs bduzuwtci8868-88-16 12:50:27Ejection FractionSLEH ECHO HEARTLAB MKCKESSON CPACSRight Impression1. [...] 12/25/2018 12:50 PM CDTPV LAB - L [facility] Extremities DVT Study Demographics Patient Name INDRA GALVAN ate of Study 12/24/2018 YAN CORDERO 8135 Age 38 Visit Number [id number] nder Male Accession Number [id number] Date of 1980 Referring Audie Hoyt MD Room Number 7604 [facility] [employer] Att[employer] Cb Maki S Interpreting Karen Blackwell Physician [...] in the common femoral, profundafemoral, femoral, popliteal, pool manager ior tibial or peroneal veins.2. There is [...] in cm/s ; Diameters are measured i [facility] W/PLT COUNT & AUTO TGTBXTIGBUVZ0724-24-01 04:43:00* Test Item Value Reference Range Interpretation [...] (test code = 2801) 0 % 0-1 MZQYXODUMX5601-60-73 04:26:00* Test Item Value Reference Range Interpretation Comments PHOSPHORUS (BEAKER) (test code = 604) 4.7 mg/dL 2.3-4.7 QJFGWZFNF9723-33-23 04:26:00* Test Item Value Reference Range Interpretation Comments MAGNESIUM (BEAKER) (test code = 627) 2.3 mg/dL 1.6-2.6 HEPATIC FUNCTION [id number] 04:26:00* Test Item Value Reference Range Interpretation [...] 12 U/L 6-55 Specimen markedly ictericBASIC METABOLIC [id number] 04:26:00* Test Item Value Reference Range Interpretation [...] APPLICABLE FOR DIALYSIS PATIENTS. Specimen markedly ictericPROTHROMBIN TIME/[id number] 04:22:00* Test Item Value Reference Range Interpretation [...] patie nts wiht mechanical heart valves.BASIC METABOLIC [id number] 04:45:00* Test Item Value Reference Range Interpretation [...] NOT APPLICABLE FOR DIALYSIS PATIENTS. Specimen markedly mpdrvylUNDBGJOYRG3802-21-40 04:39:00* Test Item Value Reference Range Interpretation Comments PHOSPHORUS (BEAKER) (test code = 604) 2.4 mg/dL 2.3-4.7 IONCPSFRM7994-40-31 04:39:00* Test Item Value Reference Range Interpretation Comments MAGNESIUM (BEAKER) (test code = 627) 2.0 mg/dL 1.6-2.6 CBC W/PLT COUNT & AUTO [id number] 03:32:00* Test Item Value Reference Range Interpretation [...] code = 2801) 0 % 0-1 HEMODIALYSIS RCZQTQMXY5395-76-52 23:25:30SFlakita granado RN 12/24/2018 12:23 AMVerified informed [...] Ag Latest Ref Range: Nonreactive Nonreactive [facility] (HEMOGRAM ONLY)2018-12-23 20:21:00* Test Item [...] /100 WBC 0 -0 HEPATITIS B SURFACE [id number] 05:28:00* Test Item Value Reference Range Interpretation Comments HEPATITIS B SURFACE ANTIGEN (2) (BEAKER) (test code = 2585) Nonreactive Nonreactive BASIC METABOLIC [id number] 05:28:00* Test Item Value Reference Range Interpretation [...] NOT APPLICABLE FOR DIALYSIS PATIENTS. Specimen markedly umxlfnkLDNPXWCUII8498-52-45 05:23:00* Test Item Value Reference Range Interpretation Comments PHOSPHORUS (BEAKER) (test code = 604) 3.4 mg/dL 2.3-4.7 [id number] 05:23:00* Test Item Value Reference Range Interpretation Comments MAGNESIUM (BEAKER) (test code = 627) 2.1 mg/dL 1.6-2.6 VANCOMYCIN LEVEL, [id number] 05:15:00* Test Item Value Reference Range Interpretation Comments VANCOMYCIN RANDOM (BEAKER) (test code = 523) 36.4 ug/mL Reference Range: No NormalsCBC W/PLT COUNT & AUTO [id number] 04:21:00* Test Item Value Reference Range Interpretation [...] % 0-1 CT, EXTREMITY, LOWER WITHOUT CONTRAST, [id number] 03:00:00FINAL REPORT CT right lower extremity. CLINICAL [...] Signed: Richie Griffin Verified Date/Time: 12/23/2018 03:00:15 [facility] HospitalVancomycin level, [id number] 17:08:00* Test Item Value Reference Range Interpretation Comments Vancomycin Tr (test code = 4092-3) 40.3 ug/mL 10-20 HH Lab Interpretation (test code = 14831-5) Abnormal [facility] HospitalVANCOMYCIN LEVEL, [id number] 17:08:00* Test Item Value Reference Range Interpretation [...] 0 -0 RAD, CHEST, 1 VIEW, NON [id number] 08:35:00Reason for exam:->eval pulmonary congestionShould this be [...] Moura Verified Date/Time: 12/22/2018 08:35:05 Reading Location: [address] Neuro Reading Room Electronically signed by: OMERO MOURA M.D. on 2018 08:35 AM BASIC METABOLIC [id number] 05:18:00* Test Item Value Reference Range Interpretation [...] NOT APPLICABLE FOR DIALYSIS PATIENTS. Specimen markedly [id number] 05:08:00* Test Item Value Reference Range Interpretation Comments MAGNESIUM (BEAKER) (test code = 627) 2.2 mg/dL 1.6-2.6 Specimen slightly hemolyzed [id number] 05:08:00* Test Item Value Reference Range Interpretation Comments PHOSPHORUS (BEAKER) (test code = 604) 3.9 mg/dL 2.3-4.7 Specimen slightly hemolyzed LACTIC ACID, [id number] 04:40:00* Test Item Value Reference Range Interpretation Comments LACTATE BLOOD VENOUS (2) (BEAKER) (test code = 2872) 1.7 mmol/L 0 .5-2.2 Specimen slightly hemolyzed Specimen markedly mwgzsllRefyrcafll8143-54-99 04:18:00* Test Item Value Reference Range Interpretation Comments Fibrinogen (test code = 3255-7) 195 mg/dl 225-434 L Lab Interpretation (test code = 53631-6) [facility]AV7665[facility]68-17 04:18:00* Test Item Value Reference Range Interpretation Comments FIBRINOGEN LEVEL (BEAKER) (test code = 658) 195 mg/dl 225-434 L CBC W/PLT COUNT & AUTO ZHHPZMWFDLIV0440-12-88 04:10:00* Test Item Value Reference Range Interpretation [...] = 2801) 1 % 0-1 HEMOGLOBIN AND [id number] 08:38:00* Test Item Value Reference Range Interpretation Comments HEMOGLOBIN (BEAKER) (test code = 410) 7.0 GM/DL 13.7-17.5 L HEMATOCRIT (BEAKER) (test code = 411) 20.7 % 40.1-51.0 L POC-Lactic Acid, Djivat6772-74-82 04:05:00* Test Item Value Reference Range Interpretation Comments POC-Lactic Acid, Venous (test code = 2805) 1.6 mmol/L 0.9-1.7 TESTED AT [address] [address] Lab Interpretation (test code = 37160-5) [facility] WQXNGR2772-34-12 04:05:00* Test Item Value Reference Range Interpretation Comments POC-LACTIC ACID, VENOUS (BEAKER) (test code = 2805) 1.6 mmol/L 0. 9-1.7 TESTED AT [address] [address] YLOVJSJUOPVWI1903-50-75 03:40:00* Test Item Value Reference Range Interpretation Comments PROCALCITONIN (BEAKER) (test code = 3036) 1.26 ng/mL <0.05 H SEPSIS RISK (ng/mL)Low: 0.05-0.50Intermediate: 0.51-2.00High: > =2.98Ykkhydi7987-66-02 03:37:00* Test Item Value Reference Range Interpretation Comments Ammonia (test code = 53510-5) 65 18- 72 mol/L Lab Interpretation (test code = 43763-8) [facility] 03:37[facility]* Test Item Value Reference Range Interpretation Comments AMMONIA (BEAKER) (test code = 348) 65 mol/L 18-72 PT/[id number] 02:35:00* Test Item Value Reference Range Interpretation [...] patie nts wiht mechanical heart valves.COMPREHENSIVE METABOLIC WLFZZ9849-65-68 02:26:00* Test Item Value Reference Range Interpretation [...] APPLICABLE FOR DIALYSIS PATIENTS. Specimen markedly ictericTROPONIN [id number] 02:24:00* Test Item Value Reference Range Interpretation [...] acidosis, acute neurological disease, and per sistent tachyarrhythmia.FCIGCETPK5407-13-20 02:21:00* Test Item Value Reference Range Interpretation Comments MAGNESIUM (BEAKER) (test code = 627) 2.1 mg/dL 1.6-2.6 Specimen slightly hemolyzed POCT-LACTIC ACID, OOPUYL7084-04-04 02:17:00* Test Item Value Reference Range Interpretation Comments POC-LACTIC ACID, VENOUS (BEAKER) (test code = 2805) 4.0 mmol/L 0. 9-1.[address] [facility] [address] [facility] [address] CBC W/PLT COUNT & AUTO JMTGKQPXYUEE4632-92-65 02:09:00* Test Item Value Reference Range Interpretation [...] % 0-1 RAD, CHEST, 1 VIEW, NON [id number] 01:50:00Reason for exam:->chest painShould this be performed [...] 12/21/2018 01:50:02 , KNEE, COMPLETE (4 VIEWS), [id number] 01:49:00Reason for exam:->LACERATIONFINAL REPORT CLINICAL HISTORY: Trauma [...] Date/Time: 12/21/2018 01:49:02 knee complete 4 views [id number] 01:49:00Interface, External Ris In - 12/21/2018 1:51 [...] Katherine Reich MDRbarneyort Verified Date/Time: 12/21/2018 01:49:02 [facility] 2018-[facility] 01:10:14HaVíctor webster MD 12/24/2018 [...] patient's condition and review of old charts. [facility] MXXOS8420-95-14 07:44:00* Test Item Value Reference Range Interpretation Comments SCAN RESULT (test code = 0620503) Manual Jofnypzsrzvf3697-26-97 15:07:00* Test Item Value Reference Range Interpretation [...] 1+ few Lab Interpretation (test code = 03917-9) Abnormal [facility] W/PLT COUNT & AUTO [id number] 15:07:00* Test Item Value Reference Range Interpretation [...] (BEAKER) (test code = 966) 1+ few [id number] 14:49:00* Test Item Value Reference Range Interpretation Comments PHOSPHORUS (BEAKER) (test code = 604) 2.4 mg/dL 2.3-4.7 ANG, TUNNELED CATHETER JHCOJAYYQ0520-47-05 10:01:00Reason for exam:->please place tunnelled hd cath for patient on dialysisReason for exam:->patient will need ffp long lines operator to procedure due to high inr [...] the patient's medical record by the nurse. Cigar Bander: Regis Ortega MD. Plant Operations Manager: None. Approach: Right internal jugular vein Estimated [...] by blunt dissection. A 19 cm right Kenyan Duraflow 2 catheter was brought through the [...] MDReport Verified Date/Time: 11/15/2018 10:01:43 Reading Location: [facility] B1 P04 8 Angio Body Reading Room Tunneled Catheter Eggnmdbzt4614-85-39 10:01:00Interface, External Ris In - 11/15/2018 10:03 [...] the patient's medical record by the nurse. [facility] Director Supply: Regis Ortega MD. Plant Operations Manager: None. Approach: Right internal jugular vein Estimated [...] by blunt dissection. A 19 cm right Kenyan Duraflow 2 catheter was brought through the [...] MDReport Verified Date/Time: 11/15/2018 10:01:43 Reading Location: [facility] P04 8 Angio Body Reading Room [facility]EL 2018-11-15 07:46:00* Test Item [...] 46 U/L 6-55 Specimen markedly ictericBASIC METABOLIC [id number] 07:46:00* Test Item Value Reference Range Interpretation [...] Specimen markedly ictericCBC W/PLT COUNT & AUTO ZUEULLCHYJDH3286-20-22 06:23:00 * Test Item Value Reference Range [...] = 2801) 2 % 0-1 H PROTHROMBIN TIME/[id number] 06:20:00* Test Item Value Reference Range Interpretation [...] for patie nts wiht mechanical heart valves.BLOOD SXMFKHE0985-08-02 02:01:00* Test Item Value Reference Range Interpretation Comments CULTURE (BEAKER) (test code = 1095) No growth in 5 days BLOOD IYHMNDJ2762-99-57 02:01:00* Test Item Value Reference Range Interpretation Comments CULTURE (BEAKER) (test code = 1095) No growth in 5 days HEPATIC FUNCTION XMLDH6709-18-75 08:23:00* Test Item Value Reference Range Interpretation [...] U/L 6-55 H Specimen markedly ictericBASIC METABOLIC AOOAQ3514-54-94 08:15:00* Test Item Value Reference Range Interpretation [...] APPLICABLE FOR DIALYSIS PATIENTS. Specimen markedly ictericPROTHROMBIN TIME/QYM8672-54-61 05:54:00* Test Item Value Reference Range Interpretation [...] mechanical heart valves.CBC W/PLT COUNT & AUTO YXEKNHRBFTXD6554-34-91 05:45:00* Test Item Value Reference Range Interpretation [...] = 2801) 2 % 0-1 H Tissue Ropb0476-76-46 14:34:00* Test Item Value Reference Range Interpretation Comments Case Report (test code = 104) Surgical Pathology Repor t Case: [id number] Authorizing Provider: Devyn Lantigua MD Collected: 11/10/2018 1325 Ordering Location: [address] Received: 11/11/2018 0818 Service Pathologist: Be Arenas MD Specimens: A) - Polyp, Colon - Sigmoid, sigmoid polyp bx B) - Cecum, cecum ulcer bx ADDENDUM (test code = 3381) q5jnqITuQLAcmJYiFzYhCSBnEWLzs4emTIGjrZPrHtNnTeGnMzQwXnesbSLcQXEmMuTcp5vlt820zHKt e6dfFRGlDoB0qNMwCAPuvIHxR366m3umc6xrygSuyZF6PAZpBRA5DQtwjzJtehK8QBryiPPbUoX3LJxj ldMaZEdzkaRrzmHkDbl3SEEfL003VJM9qAksv6lzXY A1WEXoDWKoJkOiZf2ldJLqR532PMQaVCNREDFpiDe2KTEzyxTzmlFrqDFZw942R552h0evVDGhigQtrD eOzpwsh6hyI725DUBakULqtfPxAoOrFDRdyBMcmNZ0HKZvPO0xfeybYAgwNJmeZXOcjqW8RJPujBKbK2 TaUMMoQS4lqdftEHU0SOgdTXPzLLH0ExQsQMJmd0Wd ucp8DrYmsu4wbi23KIS0y4EchCguWDM3RSU7LgSsGf5nxBYvIWOmRH3eQlDshLFcJCRkod17qYjiRDkp hvVarR8qWkFwMAJvcNBvCIFpWE1ujZTsCILveK5evdgjEGRdGlUwlssjDZDddLmtnvAwEw8luSxeVEW0 BNpbN8qomH1qLvC1LCvwG0mwuT9oBQc5EOidrXR4FD ExpV4lGL9xgyekq2ehGDfwLEowHFZyekN7koJ2FOLuoONrY3CwkK1rDBAyPT7npmgbj6udBWX8QRojNG NnQSO0DeEfNBKzn2Bqcfw9KbKys2BbwXSxLOfuB98su549EBMezyAwO0ahpFJdoonztYJhfyuiKDkhnu E5WKPzLCYsOLmbQGGpQBUwJjIkkAGrWhReMqWmrYil xKmjHSyqSiWnEEDmLXqdS1lyQoSyOdMrFXFTjI17od4yiNXfzcRqJe3oVWrHNkMsBYjNMmNzBIUtKGGU SITmlQFkEj7bqYCfOC5sPRXao5ZgHMUwYLWmIANdOGmdwPv8YW3tlGNncI== DIAGNOSIS (test code = 3220) w5gaoSIyCRVud1qcJTGykZLmCoJhYhJjKiSsZclhpIWxZLclxhCwMTnul2BfI7AgHjKvZPdgdgEdVQQa AdpxdsrjAIBxYJZ9geKmIRYwMEthZLUzESvyOz4boKWgmGioAaEcACPzo0hkteSSjnccfMq9o2rmANQb DhH4kLYbFNtrM7uwnpQfbEQpNMOqNFe9eY27KJMnkA 1rxUKoVTezedZlZhI9DDqyGCRyXrP9QMPryLWaOQIoQ5idKQIkDQsnUPBrFKonxHLmVSW0lKhwr2T0xU XnxLStqFuwIpMtZtXbEYFBe5WnIGv9gIviV7ZcXUBbQeV7cJVgNWDgPTfgWLDjAATabwA1jZ36BIimnl J8mILqw0Yhr09yy116cS0wdQBnPGN8WHPmMNUboCNt SQIrWWG3TQVmrQDsB5v8XuWstGReX0R3FmXdbGWfQ9R6MzVkkXIiR6D0DkKwlXKoZOVjdUToCh9pwJLh vPTpvc8bts28PRM7e2IghMduWGA8TLW0OgPwGr9nhVKmCWVaBD8oThGwnIDoSAHuty35iJsdSKdfbgKi pS8dGnXdGQThgYKrBQKiNC4ogIHgCYKmaV5rbzxdIW ZqHaEbuzbrPZFqsGjatiYlLo7qrDwjNTY9STmjN7fgpD3oUkT5IOorC9focK2yBKz5ISvuaMG2FKUemF 8nTU5fhqsli5wvZoZwGN4fnbttw6jmYzKqKW9dvxm4r2nfQfVrXF0xkqgqh4yhYmRgQSxpVDReqzodCY Waq4NxjafsJKYyf1XmM1YsrJgmK91dmJeqZ00aRQPr qIoyuJ3gxSycuB5eKzRzMzJxVTphzLvhrPPxbzonPDpaylWoWNocnaoyOYSnWPuvD6owTyWxFVDsuDyl ULooo4RiWZOyBEEfKoWjKXGRGPHMWVXQN16YOZZcG96IJ98qON6DSYEfYGRWWItRLBIHC10RMuutLGIn SFlQRVJQTEFTVElDIFBPTFlQLlxwYXJccGFyIFBBUl UvQuMUOOJRBMUSGF8VI3ksSc6RTDIJZ9AMY1KBBPDPVMVZIljtwJWqSH1ZEfPBVORXZzaUJESFJYhYOD ZDR2sAXLgSYRiNQSwwNXmLPJQMZViGVsQUHzSwXzOWGI8HNxLKRGFLKUWYZRQGOgQLLcxuFNKcFtHARN BCGeEoWs0GRQqSMQ5CYY7KMGVaXTFQG4JEKLPIKTpc E7KoHW5AHLFMEcTsN5LBC0bUO47KGdhuNQKyZc1nLU6EFFmRQE9LGDBgC2UrNF0OVI2PYVwMYw8KGPNS EeLHUcpSWB0CILNMLhVRSJ6TGN7TKR8dkTKxIFZBJSAELWWFRc8BLPiBBPPAGT2VQwAaXAQqzbWSGK3Z Rs8RVWZSOiPeFf7CUYFDWjCHFV4NZdoMSsEpSJISKK mZSrqnVOWLJB4JGR9yRQ5lCj7CJS0ICimcZXNmpSEfhMubylOvQEgqt5RdPDomMASvNW8lxBtmOYZcED 5lIXXvT4pgpZ5arbi2NnJnZTNuCsZ6QLQnfzG4Rwl4QQLuWOcbv5nra6YpXRYvFKn7zHdbYsFgPNImq7 emdaTvJuIhNVTxBHIfUSEogRAkP526x6rlf9gzzrOr bKN6NDWjEYS7XJrdykYaewF1YWaqfVOfKrY9LErawdMeYSrvzbLobxOrVph2MPBkJ100TAZ7kAqxy9nj QFK8TQJbFASlUiQsXa7zuAPrH471AYXqWZTWYPCtmWr5LGNwihFfmrLnnKQSm561J862h4ffMSFlwaIu pHhDywlat2biN108QGKzyVFvemPdQaAbMYJlsGQteM M9CYBjDM3jyihmIAzjMBdgFEDchjS8VQDywVSsJ4GyRIIzNC2yeyxzEYE4HLibECGuHDE1BiGdCRKpy8 Ohirk1YmBaxp8wwc23LCS8h2HuuSjmGRX1PTL8YtXyUj9yoEBkSEPpXK6yEuIwnFZcQOBtcn32sHxhAQ fcCAM0LCMruxIkn1Kjj8wjJuVwquHpE4cyQ4VcSOOp GJLzSUInZqZqhuNqf3Gqr9OtpUNjcGw2u1ekHIZvXZKdxPria1voAII6JKTjaMZkV4vzqN8wALSuTC8j xsoba7spPIhyTOzgRHCyuDY5elL9AGZwpDGkP5QxoC0vKTToWDwtQBOzzlg3WhFhKx9ynIJrzIreTZoy YmtwYWdlXHBnbmNvbnRccGduZGVjXHBsYWluXHBsYW wbDYGgULKdVcTidFwuvRRaCsBcGbZddQnzaYanSPsiNcUtJMAlWOzdH1idWsVeGkLjShy4IQMxoCJyVN TzGlt2DHVmeBJsUFBFnJtnyY8fFYDslPmchE1oyIX6KJJucbSjeAKJrS9uGLPCnY2mIzL5ToAnWfU5SP QyNDlccGFyfX0= COMMENT (test code = 3359) f2zfsTZuDOVdmGAaLkZnBVQkUYMjj9jaYZMcfSWmTsUyMnYaLuWfXdppfLNwUXIbEiRve9shg899gFNc e2iyABYiJjZ5oEAlCDSraJMlS691a4jyw3dazxVvcUY8TYNzVZC4QWhuahRqwvL3AZzosSDdUoR4CHrc syBhRKofwzGpzhJdLui8DOXgU099NFU2zKjql0zvHF R6TQYhUMOoCtCyFa8hrRJgC741FCVyQCSUDMSnvUd1BBErdvZjeyGsmUCWq609M908t2qjLNJpptCgoN rTwvbyp2dyQ553CRFhxAQfmiQbHdCrNQMzuIAbkKN7QICeAY9lmmsyGgVoHZ7pxroaEjJqLJ5kxdx2Ga YaBD2wflecPgWxERpjKXYlponiIWQmw4ShngzvZG4q A3Fdh0N1xK7pzYWcPLUkzLOfXlAdDXYxxu5jcLUaOGtzz5QpPBR1hjN5jRUtuEEdXAPeAY83Tnepo6Xw NfnkNTK3NZHlzlJha9Zcv0zxMqDcdnHrV8zjT9GvELDvYLNeCETdOkNfyqBoh0Pto6YmmGUsiKl4i8pq DCNgMJHldMcwe4fcNWF0UTSeD4G7lFEzz3blOWucSG HdaXX5pnufNDvrAPGqpxQ2ieayRXpiHOOemLW9olriRWxiQBKlDgO8xhhyFPmeFINpFOK3ANzvh033RS X7DKzrDbegQHolEAJvghHcpwXshNboDORwCBHqIHuiYRHbYWgaLGAsULKnRbYdeWbqnZvcfL4vCkRjRv SlHVdqIZ0tNBAsG3xcrGFcZPDkPPBsV4pyTxMccF9k vPxuDPexcuLhATGLNtJfDcksFZ5geC8pgXeglP4svZTcgOCfaGRihPZyiCSvJVLisxSnss7pSPDxstFj jM9ddkOAUAZbSI0zdpG3dbL0OAK1zHCvzKbedYngpHDchU9puJitwDghzwB4oyAzMKNrs3YrbMz4IZIh y1PwL1MaOLIkf6ZtcMg1YNXWZFUqoIuxVUNyVMJAAN CnS9O8CEMlv0t9yVUsSCStX5FtiQAjQZSvSPAyZLvuIS2aHDNzRRZuCX17RUVpOMF6iXCds8Tts87dv9 BgB6QfMFKwmnUyS5A8ClQWwVLuoU7kBSKljUZacdAsLNFhblNwSHYyJRDxSDiwXI1zYO6ptkEze6ukI8 leKJ8xKVnjdYAmy9PxRM3ikLvzlTAtIPNvKRBsQ9Aav2YiaJebfBfmiNXsUTNjqg6= CPT Code(s) (test code = 3357) s2ykuFDsNMEsxPViCpReRIEiMFYky5bkEAKhvRPcRcQoYkRvPkToExpnjVTfPPOdXoNmm1dmp820fTJp t5lkMFRaJbX4xGMiCUSnpJFmW904x8vjb6jdzuQtvYC0UYJtXFE8SHuwhtZpcyQ8KRnomUVjBpW7MBof xdObGKzolvTvnxQbAnp3YVPjL508IRE9qOkvn8rdWN O9CNZcSJWpVxYlIj7uvFCbN517GFLqKSRCQBKbwHi5JDMdtsDsboUbjKJUi451K363n4csUYGbkkWjtB aHmaurw2jwO808LHHonJCvquYwWgJnZXKkeMScyIB3YAToGK1mfenrHlEgPL3cotlbNqOrEI5zwey1Fm LjZU7bestgSjCuFBszSPXuveizYJQdf2MjnuyzGP6o S0Ltb5T9gZ7zvHMzUPQcaKCzFcQaEKSvhc9ngWVoUCmfj4VzCXL4bjN5zWPcyUYnZSLxRA36Fhqqs9Mp NumjGDU2VWKbmiCll0Fuv1vtSeMizwMsW5ecV5RqVSEpFJAnHZBjPhCxctPli4Tbm5TxvMJqpQx3s9xp PXFfDITckVvrx8xpITD0WMUhM0X7rQUbn6omKYvzOX UunQO3ouikNCkaRBWokcR3syruLZbhAQLnxAR6qvpbUYpgTYJjYkE0ukhgYEezTONoORP5XFccb722PK B1SAcbCxxmEFcbQAGbgwEdqwBvaRdwNWEcOSZgZTtpBTMdFUhoLXPmUHArNzPgpLrlyGccqP3gRuFqAn GaVVjnGE3cFKHeV7swvPJyBDRgOSFaC1kpIuWsrJ5d rYsoTCdctsRxPJn7CiZ5uRDtECc7DzTpTTC8CGO5LIj0ACXihk2= CLINICAL HISTORY (test code = 3356) j2dhbXAdPPDbiXUwZaLhUQHcYVKlr3ceYENqfLPbMkQsMrDcFrCyZxbueVUhDXPlBuAxl3fzo615xEJs c2slYFNkUdT2xSHwDSOysBZtM824r6pzg4qmdiSazGS9OVMnGFZ9FTdktiSavsH3RFajiGBcUzK4LBrs yjYbXPwkfnYtsxSqAri1KLXkF710ETN6dQmgu7ozIO B3QYHxUPKsRuPfWu9puCUtT691BXQeNXQIXSOphXq9XMAiznBlhkMgdRAOi962J059h7ksVYEfnbGroR qYlecgg0ncH190LWEcdYBlswMcDkZnFYTemLQhsNG2MDNuYM1elrmeKdHgJB7nxfunHhIkTP2sbtw4Kf ItUF1jhocmJmCtEEjyIYBqcgtcMHEop6NmdkkwGV6m E0Cxq7M3hO0ncOFlOPJiwJQwRaYhKQXvhz5ltKWrHConi0IlJEI0ltP2kIZrcIJySMOjPW20Wwoqq0Hp TokjPAY2ZVLmaiWpd6Aeb8tuKkYhttVbZ5caD6TpUJSxELZyCHHqTtRvqhHuh2Hrf8NmzKEkrGu5d1pe CNGhAQBihYyag2vwFUE6OXMkG8X1qOUps8jiRXzuAW ZriZX8etpaNDwsZGLmjlG3wlqwCLixZKDfqZY5ofmwFGmjTJTuOdV4hffkFBnoNADwDPH4NKrla566VU N5RLrcSpbkAAgsVECencMgsxFgnOvuZHTvIPYfXWbiOCVuJJkeLGUeZBJiVaIfmUbhdNlylM4vItVoIi AzUKoeFO1gHSUkJ3ozvPDbHKOkCRAqG5ezCxKizU 6thJhrJVghnbExRZAgaC1rQJYerOwxglGvfBAilZ== SPECIMEN SOURCE (test code = 3377) s2ugvXHtVVXcfSWbWwMiJCCfFWThy6ieRILvpXOcHlIoDcOxExVaEpgqxTYoPHXoUbTyl4cca376qBVp b7iiGPGkFoK0wZHaRRYouMZnU682e1oeg7joanHeqFB6MHUgBCB7UYzstwGndwH4JQlhpPNdNdM4KNes tuRyGMmgadNmwnTyRld3WUPkZ785MFI5dLjsn5tgOH T0OGEeWBFpEfTdVp6bdHOmH419RYHsNZMYCMAppHb5KTVtjtZoswJfaNJOp490E913g6uvOVTazqGruI rRshjaz9hcT207TTEinJCavrAeYfAjUEYoaJFtuDH1FHYbQF5wagpqKnYtOZ9sydqtHrXiFJ6wykz3Ry ZaEZ0jidtlFyXvJCfwVWPrsofpNKErb6GjmotkWL8c B6Iif5Y4xY8hpXTxJLFzmBVvGfLuXGCnfg5raOGmPRpbq2WcURL6mqM8gCUkgOVkWVAoYI81Paxmu7Bf JtwkVDJ6HNUftzFbw8Txn9kaJgYomkWdH4wgL9ZoYQNdLQAgCKHrLxTwqtNik7Cyj7AwyRAgbZc8r6ts JNTkBKAhjLmao5uxIVS2FMTlV7W4eZOas2fiCMmpSV EmaPU9zhxwTOruTNPdioI2klqqZDfkCQEltRS8iqxxFAqfNRJtQiV9hnkbVMxjNSMeLOG8LHenj001WP S7MUqhVkxmNVzqRNPxiqCejpQnyZjgQPAmVBXjTOuwKGJuCOlhXZLcTPQuUkVmtKupcNqymV8zYfXaLh CgCXuyRO8cWDVsI7pdjLQlEESmMEXuY9zeYuVgbT5s fJzqNUvijaBqBVZmFAFdS97gfHLewI2rwUQoPqszhBH9FcJVCpSYWTI6pUA8bXTymzZqlE6vk3eiHDQs cn0= GROSS DESCRIPTION (test code = 3366) d1aqwFUeKFQabVVmCnKwDEKqURMuh9zfVHTipBZvLrYcMvLeHsFxZzivmOEcDBPePrBae9nev226nPCc t6mwNSAmDpL8xMPaEVIynFFaK037r9hqc1jshkWujQZ1FFKoAGV2LVwkdbMloxR1XUyxlIPwNzJ0XDfr zuKwPEtnkgQawcAoRdv1LXVxY306EBD7aGiok9cjAS P9RQYkVJYjGbWtBl8klTAcF328UERvYUVBAMKjaDh8WODlvfUaodVcdPEMq128P295a8tiVPZtwzWjdV mXmncdw4vkV109VQCbhDPrjeFhEzEaTGZhwDNdnPT1KIZsHT1elwkcXiYnIA2lxhywItToBD1utvn1Hv KdWN8wvmjiFeWkVXtgPUKvqmczFFRrj5CsduwgAE8r O1Wpz3V8kP6zfRXxAXPshBPkAnOqTAPjhe8oqMCxJCftf2YtTMU1wxE6xVJjxNDjTQHqTO38Mmbgs3St TpldYOL1XKAnewZgn1Zzu1phFrJyauMuK0tcL3DxTWLvUOShOPTbMaIdtsBfv2She7UefETvaBg0v9cr CJJyVDAikVazw1qsJIE4HUCiB3L9dYAeo2xaZLjsIR YhySE5hoocKVkxWLVxosW2cmulNMrqMHSttHC8oghmLEcwSOSmTbV6fciqNVamLROlFOC7LEskn299AO A8EFpaZkdkFSboNLDhkbMsjoJgbGvkRYBvQEFzKSktOQScPWdcOVSaWALeLsQhbNebxKxewY0xJaLfXl QsNByaFF7qKNIwY0ftvGNvNXHuBQKcB0jiFbRyvH1w mDtlRFwzftPjRNOkxsQeTK2pLfKzAIj2ELUzuL4fYx7xcRYimJ0bnCMuNTnqRMD9tCNxTYStHUZiWXCe PQ15U5NawtEaYCtqMRAaZNNycE5oKC19uLQnwqCjykBjBcIugDcoRMLvs1sqfj8vhNazu0pdEcGvpwTu GEBeLvLibNF2HI4sz53gmYV9uECtjQRlLkKfC92psa YkJPgokXVnWAzpZSX0Za4hmOUySHSkopG0v4GgMQgfKDCaSprhKSOdeHPsCWYwphArLy4fEcHoTAg3FF OeaD1fXs5twXVmrL6hxHNjKEypKJV4lNPnIJEmBPPjMQWcSC02G0CockIeYXeaKAVtQCNfdI2bJO65oF KzgcIgpwYtEmOtN5XfLgTrmjLgMh57quGhdmFxI7Gz AFKkwINxDQBdLdXdwZgzs8ApCSPfGAiqCA57nfWvSW0ehA5jRYCmTF4wAeMlX47rXIldvIXaABPuRLCc wAIceLS3ETVbjP5gtQ88btKjspFPJH0vO5npOWfuKEVupy3= MICROSCOPIC DESCRIPTION (test code = 3371) w9nyuBXhJGQyxJZlWjJfULQpQCNnc0fwSCPmvUXfEgOuYgXhHpMiQxncwWSuKYKlOhGfd7omu832yYOk v5zzZGTuIyD3uJTnPJVpkFAcA916n2yeu9yecxXwcYD3BNQlVVM3WEnttyFuheO1FVxmsPDvKuN9FYfk ydSzQVosgyRprwHfWwo2HMGeF227LSG0jIdli4gqVT A0IGTmLXEyXzFmOx7gzMIoX918MZNsHNBHHJZllOo4RNRygqFafjAsiJNWp796U483p1ouDYDutrYraF lIgiled0fyU199WATuoIGzzqHhKdKtUFBgpNLamKN1OSNjBK6kwmhlKeUxCE8vglrkDoUvFD9mxez7Kn JdKO6vodksYwWxBNzgWIPpwdvgVZPbz4EaztqiJU0q X7Yzq3I8aS7vqAAvMOWokSAdBbKqFSUada9jyTIbHPaea0UdNCK8ygT8dGWhyCEvMHZcPV35Ytlbn4Rg UwtsBMF4NQHtohStt4Hsl0wdKsAzkzNfC6seJ1MpKSAzHOTnVSZyYpVeflNyx7Viz0VprPAuwNb6u8du QHLaQGTzvRwwf1cdLQB3MZTiL5Z6zZAxq0efTMrcJC VvpCR0vdjcBPluQCNavkJ7vvccLSudIYDcoFO9fewtKMyoOGCuGoS8nxueCHbbEXNxPQL0JMjma697EB Z9HSphYcrmKMunUJGmmaOyirThzDnrOEAvGYVzQBfyQMHyRPjsZLRwCPEsNmZvdUfyhXbjhC8kSgGfXy HgGYttAV7kNSWqJ5hdxZKsPFZgSVPbJ3iwUuPgyL4jtYkwMLndbpJgMAWomyVmkw5wFS0kGGUyts8= SPECIAL STUDIES (test code = 3376) [file] JuaZwrxC5xYqOnJzMxWSjlIOC7 [facility] [id number] 14:34:00Surgical Pathology Report Case: [id number] Authorizing Provider: Devyn Lantigua MD Collected: 11/10/2018 1325 Ordering Location: [address] Received: 11/11/2018 0818 Service Pathologist: Be [...] TO FOLLOW. Signing Pathologist Direct Phone Line: [phone] s igned by Be Arenas MD on [...] is no morphologic or immunophenotypic evidence of lymphoma.45099u4, 24162, 8834 0a0Cbfaq polyps A. Sigmoid polyp biopsy. B. Cecum [...] HSV1, HSV2, CMV, CD20, CD3, CD5, CYCLIN C2Shftwlj Slides Examined: In-house known positive controls were evaluated along with the test tissue. These control slides run a longside of the patients sample show appropriate staining. Internal positive and negative controls when available are evaluated Immunohistochemistry technical t esting was performed at [facility], Pathology Laboratory w here it [...] to perform high complexity clinical lab oratory testing.[id number] 08:34:00* Test Item Value Reference Range Interpretation Comments PHOSPHORUS (BEAKER) (test code = 604) 2.3 mg/dL 2.3-4.7 HEMOGLOBIN AND [id number] 08:03:00* Test Item Value Reference Range Interpretation Comments HEMOGLOBIN (BEAKER) (test code = 410) 6.4 GM/DL 13.7-17.5 L HEMATOCRIT (BEAKER) (test code = 411) 19.1 % 40.1-51.0 L BASIC METABOLIC [id number] 06:42:00* Test Item Value Reference Range Interpretation [...] FOR DIALYSIS PATIENTS. Specimen markedly ictericHEPATIC FUNCTION [id number] 06:41:00* Test Item Value Reference Range Interpretation [...] Specimen markedly ictericCBC W/PLT COUNT & AUTO [id number] 06:36:00 * Test Item Value Reference Range [...] code = 2801) 1 % 0-1 PROTHROMBIN TIME/[id number] 06:29:00* Test Item Value Reference Range Interpretation [...] nts wiht mechanical heart valves.RAD, CHEST, 2 [id number] 23:58:00Reason for exam:->coughFINAL REPORT Chest, two views. [...] MDReport Verified Date/Time: 11/12/2018 23:58:30 Reading Location: [address] Consult Reading Room chest 2 [id number] 23:58:00Interface, External Ris In - 11/13/2018 12:00 AM CDTFINAL REPORT Chest, two views. MEDICAL HISTORY: Cough. COMPARISON STUDY: November 05, 2018. FINDINGS: The cardiac silhouette is unremarkable. There are bilateral mild increased interstitial markings. A right-sided central line is noted. There is no pleural effusion or pneumothorax. Degenerative changes are seen. IMPRESSION: Mild interstitial pulmonary markings. This may represent mild volume overload. Signed: Andrwe Sloaneport Verified Date/Time: 11/12/2018 23:58:30 Jovani manjarrez Location: [facility] Consult Reading Room [facility] HospitalHEPAT[facility] FUNCTION [id number] 04:58:00* Test Item Value Reference Range Interpretation [...] U/L 6-55 H Specimen markedly ictericBASIC METABOLIC [id number] 04:50:00* Test Item Value Reference Range Interpretation [...] Specimen markedly ictericCBC W/PLT COUNT & AUTO [id number] 04:33:00 * Test Item Value Reference Range [...] code = 2801) 1 % 0-1 PROTHROMBIN TIME/[id number] 04:25:00* Test Item Value Reference Range Interpretation [...] patie nts wiht mechanical heart valves.Creatinine, random [id number] 03:53:00* Test Item Value Reference Range Interpretation Comments Creatinine, Ur (test code = 2161-8) 225.8 mg/dL PHILLIP (test code = PHILLIP) Reference Range: No Normals [facility] HospitalCREATININE, RANDOM [id number] 03:53:00* Test Item Value Reference Range Interpretation Comments CREATININE URINE (BEAKER) (test code = 375) 225.8 mg/dL Reference Range: No NormalsProtein, random [id number] 03:50:00* Test Item Value Reference Range Interpretation Comments Protein, Urine (test code = 2888-6) 122 mg/dL 0-14 H Lab Interpretation (test code = 20639-5) Abnormal [facility] HospitalPROTEIN, RANDOM [id number] 03:50:00* Test Item Value Reference Range Interpretation Comments PROTEIN, URINE (BEAKER) (test code = 1569) 122 mg/dL 0-14 H CBC W/PLT COUNT & AUTO [id number] 08:10:00* Test Item Value Reference Range Interpretation [...] U/L 6-55 H Specimen markedly ictericBASIC METABOLIC [id number] 06:17:00* Test Item Value Reference Range Interpretation [...] APPLICABLE FOR DIALYSIS PATIENTS. Specimen markedly ictericPROTHROMBIN TIME/[id number] 05:07:00* Test Item Value Reference Range Interpretation [...] patie nts wiht mechanical heart valves.HEPATIC FUNCTION [id number] 06:03:00* Test Item Value Reference Range Interpretation [...] U/L 6-55 H Specimen markedly ictericBASIC METABOLIC [id number] 05:52:00* Test Item Value Reference Range Interpretation [...] Specimen markedly ictericCBC W/PLT COUNT & AUTO [id number] 05:17:00 * Test Item Value Reference Range [...] code = 2801) 1 % 0-1 PROTHROMBIN TIME/[id number] 05:07:00* Test Item Value Reference Range Interpretation [...] for patie nts wiht mechanical heart valves.BLOOD [id number] 02:01:00* Test Item Value Reference Range Interpretation Comments CULTURE (BEAKER) (test code = 1095) No growth in 5 days BLOOD [id number] 02:01:00* Test Item Value Reference Range Interpretation Comments CULTURE (BEAKER) (test code = 1095) No growth in 5 days URINALYSIS W/ REFLEX URINE [id number] 00:30:00* Test Item Value Reference Range Interpretation [...] /LPF SOURCE(BEAKER) (test code = 2795) HEMODIALYSIS [id number] 15:25:00Melissa Lo RN 11/09/2018 4:53 PMProcedure fairly [...] 98.3 F (36.8 C) SpO2: 95[facility] 2018[facility] 11:29:00* Test Item Value Reference Range Interpretation Comments PHOSPHORUS (BEAKER) (test code = 604) 2.3 mg/dL 2.3-4.7 HEPATIC FUNCTION [id number] 04:57:00* Test Item Value Reference Range Interpretation [...] Specimen markedly ictericCBC W/PLT COUNT & AUTO [id number] 04:42:00 * Test Item Value Reference Range [...] 2801) 2 % 0-1 H BASIC METABOLIC [id number] 04:41:00* Test Item Value Reference Range Interpretation [...] APPLICABLE FOR DIALYSIS PATIENTS. Specimen markedly ictericPROTHROMBIN TIME/[id number] 04:34:00* Test Item Value Reference Range Interpretation [...] patie nts wiht mechanical heart valves.HEPATIC FUNCTION [id number] 17:22:00* Test Item Value Reference Range Interpretation [...] U/L 6-55 H Specimen markedly icteric; notified #[id number] of correctionCandida antigen with reflex to [id number] 11:29:00* Test Item Value Reference Range Interpretation Comments Yari Antigen (test code = 24518-1) Positive [facility] HospitalCANDIDA ANTIGEN [id number] 11:29:00* Test Item Value Reference Range Interpretation Comments Yari Antigen Titer (test code = 9501-8) 1:2 [facility] HospitalCANDIDA ANTIGEN WITH REFLEX TO [id number] 11:29:00* Test Item Value Reference Range Interpretation Comments YARI ANTIGEN (AKER) (test code = 1782) Positive YARI ANTIGEN [id number] 11:29:00* Test Item Value Reference Range Interpretation Comments YARI ANTIGEN TITER ([facility]) (test code = 737) :2 CT, CHEST, WITH HIGH RESOLUTION, INTERSTITAL LUNG [id number] 11:29:00 Reason for exam:->liver transplant evaluationFINAL REPORT [...] MDReport Verified Date/Time: 11/08/2018 11:29:31 Reading Location: [facility] C013X Ortho Consult Reading Room chest with high resolution/[id number] 11:29:00 Interface, External Ris In - 11/08/2018 11:31 AM CDTFINAL REPORT PATIENT ID: [id number] of the chest, without contrast Clinical [...] Verified Da te/Time: 11/08/2018 11:29:31 Reading Location: [facility] C013X Ortho Consult [facility]i ng [facility] [id number] 08:24:00FINAL REPORT MRI of the abdomen. CLINICAL [...] rt Verified Date/Time: 11/08/2018 08:24:53 Reading Location: [facility] Reading Room - [place] [address] E [id number] 07:36:00* Test Item Value Reference Range Interpretation Comments CULTURE (BEAKER) (test code = 1095) No growth BASIC METABOLIC [id number] 06:13:00* Test Item Value Reference Range Interpretation [...] NOT APPLICABLE FOR DIALYSIS PATIENTS. Specimen markedly nlhucfxPDLIZXOXNW9460-96-74 06:07:00* Test Item Value Reference Range Interpretation Comments PHOSPHORUS (BEAKER) (test code = 604) 2.8 mg/dL 2.3-4.7 [id number] 06:07:00* Test Item Value Reference Range Interpretation Comments MAGNESIUM (BEAKER) (test code = 627) 2.2 mg/dL 1.6-2.6 PROTHROMBIN TIME/[id number] 05:21:00* Test Item Value Reference Range Interpretation [...] mechanical heart valves.CBC W/PLT COUNT & AUTO [id number] 05:03:00* Test Item Value Reference Range Interpretation [...] % 0-1 CBC W/PLT COUNT & AUTO [id number] 13:51:00* Test Item Value Reference Range Interpretation [...] WIT TOXIC GRANU LATIONS PRESENT BASIC METABOLIC [id number] 07:53:00* Test Item Value Reference Range Interpretation [...] FOR DIALYSIS PATIENTS. Specimen markedly ictericHEPATIC FUNCTION [id number] 07:53:00* Test Item Value Reference Range Interpretation [...] 80 U/L 6-55 H Specimen markedly ictericPROTHROMBIN TIME/[id number] 07:12:00* Test Item Value Reference Range Interpretation [...] mechanical heart valves.CBC W/PLT COUNT & AUTO [id number] 08:15:00* Test Item Value Reference Range Interpretation [...] U/L 6-55 H Specimen markedly ictericBASIC METABOLIC [id number] 04:58:00* Test Item Value Reference Range Interpretation [...] APPLICABLE FOR DIALYSIS PATIENTS. Specimen markedly ictericPROTHROMBIN TIME/[id number] 04:37:00* Test Item Value Reference Range Interpretation [...] for patie nts wiht mechanical heart valves.Urinalysis w/Lbyarixjdao4907-40-36 22:58:00* Test Item Value Reference Range Interpretation Comments Color, UA (test code = 5778-6) Dark Yellow Clarity, UA (test code = 5767-9) Clear Specific [place], UA (test code = 5811-5) 1.012 1.001-1.035 pH, UA (test code = 5803-2) 6.0 5.0-8.0 Protein, UA (test code = 28692-4) 20 mg/dL Negative A Glucose, UA (test code = 365) Negative Negative Ketones, UA (test code = 2514-8) Negative Negative Bilirubin, UA (test code = 87901-3) Positive Negative A Blood, UA (test code = 95240-9) Negative Negative Nitrite, UA (test code = 5802-4) Negative Negative Leukocytes, UA (test code = 5799-2) Negative Negative Urobilinogen, UA (test code = 07476-4) 3.0 mg/dL 0.2-1 H RBC, UA (test code = 02181-5) 0 /HPF WBC, UA (test code = 5821-4) 1 /HPF Bacteria, UA (test code = 64302-0) Occasional Mucus (test code = 8247-9) Rare Specimen Source (test code = 2795) Urine, Clean Catch Lab Interpretation (test code = 05230-8) [facility] [id number] 22:58:00* Test Item Value Reference Range Interpretation [...] 2795) Urine, Clean Catch Hepatitis B surface [id number] 20:23:00* Test Item Value Reference Range Interpretation Comments Hep B S Ab (test code = 33696-7) <8.0 <8.0 mIU/mL Lab Interpretation (test code = 44972-8) [facility] [id number] 20:23:00* Test Item Value Reference Range Interpretation Comments HEPATITIS B SURFACE ANTIBODY (BEAKER) (test code = 647) < mIU/mL <8.0 Hepatitis B core antibody, [id number] 20:22:00* Test Item Value Reference Range Interpretation Comments Hep B Core Total Ab (test code = 66944-8) Nonreactive Nonreactive Lab Interpretation (test code = 62765-7) Normal [facility] [id number] 20:22:00* Test Item Value Reference Range Interpretation Comments HEPATITIS B SURFACE ANTIGEN (2) (BEAKER) (test code = 2585) Nonreactive Nonreactive HEPATITIS B CORE ANTIBODY, [id number] 20:22:00* Test Item Value Reference Range Interpretation Comments HEPATITIS B CORE TOTAL ANTIBODY (BEAKER) (test code = 497) N onreactive Nonreactive RAD, CHEST, 1 VIEW, NON [id number] 20:17:00Reason for exam:->pleuritic chest painShould this be [...] Date/Time: 11/05/2018 20:17:29 , NON-TUNNELED DIALYSIS CATH, [id number] 19:49:00Reason for exam:->need dialysisFINAL REPORT PROCEDURE: Non-tunneled [...] site was prepared and draped using all chinik ents of maximal sterile barrier technique including [...] was applied.Catheter placed: Schon XLCathete r size ([place]): 14Catheter length (cm): 15Catheter flush: Heparin (1000 [...] Verified Date/Fernando e: 11/05/2018 19:49:40 Reading Location: [place] [address] Angio Body Reading Room non- tunneled dialysis catheter jpbhfebba9949-13-50 19:49:00Interface, External Ris In - 11/05/2018 7:51 [...] ressing was applied.Catheter placed: Schon Rupertheter size (Kenyan): 14Catheter length (cm): 15Catheter flush: Heparin (1000 [...] Verified Date/Time: 11/05/2018 19:49:40 Read ing Location: [place] [address] Angio Body Reading Room [facility] W/PLT COUNT & AUTO [id number] 10:46:00* Test Item Value Reference Range Interpretation [...] comment: User comments: Slide comments: BASIC METABOLIC [id number] 06:48:00* Test Item Value Reference Range Interpretation [...] FOR DIALYSIS PATIENTS. Specimen markedly ictericHEPATIC FUNCTION [id number] 06:48:00* Test Item Value Reference Range Interpretation [...] 347) 82 U/L 6-55 H Specimen markedly adkhacfBSBCQZIHFB0391-69-48 06:44:00* Test Item Value Reference Range Interpretation Comments PHOSPHORUS (BEAKER) (test code = 604) 3.7 mg/dL 2.3-4.7 [id number] 06:44:00* Test Item Value Reference Range Interpretation Comments MAGNESIUM (BEAKER) (test code = 627) 2.5 mg/dL 1.6-2.6 PT/[id number] 05:49:00* Test Item Value Reference Range Interpretation [...] RISK: Target INR is 2.5-3.5 for patie [facility] wi mechanical heart valves.PROTHROMBIN TIME/SKF1998-60-34 05:48:00* Test Item Value Reference Range Interpretation [...] wiht mechanical heart valves.URINALYSIS W/ REFLEX URINE [id number] 20:41:00* Test Item Value Reference Range Interpretation [...] 1574) Rare SOURCE(BEAKER) (test code = 2795) [id number] 14:10:00* Test Item Value Reference Range Interpretation Comments AMMONIA (BEAKER) (test code = 348) 101 mol/L 18-72 H CBC W/PLT COUNT & AUTO PIHXBQWMODTB5790-20-72 10:57:00* Test Item Value Reference Range Interpretation [...] (BEAKER) (test code = 474) 1+ few [id number] 10:35:00* Test Item Value Reference Range Interpretation Comments MAGNESIUM (BEAKER) (test code = 627) 2.4 mg/dL 1.6-2.6 HEPATIC FUNCTION [id number] 05:15:00* Test Item Value Reference Range Interpretation [...] U/L 6-55 H Specimen markedly ictericBASIC METABOLIC [id number] 05:14:00* Test Item Value Reference Range Interpretation [...] APPLICABLE FOR DIALYSIS PATIENTS. Specimen markedly ictericPROTHROMBIN TIME/[id number] 04:51:00* Test Item Value Reference Range Interpretation [...] patie nts wiht mechanical heart valves.HEPATIC FUNCTION [id number] 06:30:00* Test Item Value Reference Range Interpretation [...] 52 U/L 6-55 Specimen markedly ictericBASIC METABOLIC [id number] 06:30:00* Test Item Value Reference Range Interpretation [...] APPLICABLE FOR DIALYSIS PATIENTS. Specimen markedly ictericPROTHROMBIN TIME/[id number] 05:42:00* Test Item Value Reference Range Interpretation [...] mechanical heart valves.CBC W/PLT COUNT & AUTO XAGUDDJROLMY0911-13-61 05:10:00* Test Item Value Reference Range Interpretation [...] = 2801) 1 % 0-1 BASIC METABOLIC [id number] 07:07:00* Test Item Value Reference Range Interpretation [...] FOR DIALYSIS PATIENTS. Specimen markedly ictericHEPATIC FUNCTION [id number] 07:06:00* Test Item Value Reference Range Interpretation [...] 347) 49 U/L 6-55 Specimen markedly ictericPROTHROMBIN TIME/[id number] 06:21:00* Test Item Value Reference Range Interpretation [...] mechanical heart valves.CBC W/PLT COUNT & AUTO QEOVRPLPXQWP5506-25-22 06:04:00* Test Item Value Reference Range Interpretation [...] code = 2801) 1 % 0-1 BLOOD [id number] 20:01:00* Test Item Value Reference Range Interpretation Comments CULTURE (BEAKER) (test code = 1095) No growth in 5 days BLOOD [id number] 20:01:00* Test Item Value Reference Range Interpretation Comments CULTURE (BEAKER) (test code = 1095) No growth in 5 days BASIC METABOLIC [id number] 08:05:00* Test Item Value Reference Range Interpretation [...] FOR DIALYSIS PATIENTS. Specimen markedly ictericHEPATIC FUNCTION [id number] 08:04:00* Test Item Value Reference Range Interpretation [...] 347) 37 U/L 6-55 Specimen markedly ictericPROTHROMBIN TIME/[id number] 06:14:00* Test Item Value Reference Range Interpretation [...] mechanical heart valves.CBC W/PLT COUNT & AUTO [id number] 06:13:00* Test Item Value Reference Range Interpretation [...] = 2801) 1 % 0-1 HEPATIC FUNCTION [id number] 06:59:00* Test Item Value Reference Range Interpretation [...] 35 U/L 6-55 Specimen markedly ictericBASIC METABOLIC [id number] 06:56:00* Test Item Value Reference Range Interpretation [...] Specimen markedly ictericCBC W/PLT COUNT & AUTO [id number] 05:54:00 * Test Item Value Reference Range [...] code = 2801) 1 % 0-1 PROTHROMBIN TIME/[id number] 05:46:00* Test Item Value Reference Range Interpretation [...] patie nts wiht mechanical heart valves.SODIUM, RANDOM [id number] 23:21:00* Test Item Value Reference Range Interpretation Comments SODIUM URINE (BEAKER) (test code = 243) 34 meq/L Reference Range: No NormalsBODY FLUID CULTURE + GRAM [id number] 10:20:00* Test Item Value Reference Range Interpretation Comments CULTURE (BEAKER) (test code = 1095) No growth GRAM STAIN RESULT (BEAKER) (test code = 1123) <1+ White blood cells seen GRAM STAIN RESULT (BEAKER) (test code = 99848) No organisms seen HEPATIC FUNCTION [id number] 05:14:00* Test Item Value Reference Range Interpretation [...] 33 U/L 6-55 Specimen markedly ictericBASIC METABOLIC [id number] 05:13:00* Test Item Value Reference Range Interpretation [...] Specimen markedly ictericCBC W/PLT COUNT & AUTO [id number] 04:24:00 * Test Item Value Reference Range [...] = 2801) 2 % 0-1 H PROTHROMBIN TIME/[id number] 04:21:00* Test Item Value Reference Range Interpretation [...] patie nts wiht mechanical heart valves.MISCELLANEOUS LAB [id number] 11:32:00* Test Item Value Reference Range Interpretation Comments SCAN RESULT (test code = 6868050) CBC W/PLT COUNT & AUTO [id number] 09:11:00* Test Item Value Reference Range Interpretation [...] (BEAKER) (test code = 481) 1+ few LAL CELLS (BEAKER) (test code = 474) 1+ few BASOPHILIC STIPPLING (BEAKER) (test code = 473) Present ARTIFACT (CELLAVISION)(BEAKER) (test code = 3432) Present PLATELET CONCENTRATION (CELLAVISION)(BEAKER) (test code = 3438) Cheryl quate Received comment: User comments: Slide comments: BASIC METABOLIC [id number] 05:26:00* Test Item Value Reference Range Interpretation [...] FOR DIALYSIS PATIENTS. Specimen markedly ictericHEPATIC FUNCTION [id number] 05:26:00* Test Item Value Reference Range Interpretation [...] 347) 32 U/L 6-55 Specimen markedly ictericPROTHROMBIN TIME/[id number] 04:51:00* Test Item Value Reference Range Interpretation [...] patie nts wiht mechanical heart valves.HEPATIC FUNCTION [id number] 05:37:00* Test Item Value Reference Range Interpretation [...] 28 U/L 6-55 Specimen markedly ictericBASIC METABOLIC [id number] 05:37:00* Test Item Value Reference Range Interpretation [...] Specimen markedly ictericCBC W/PLT COUNT & AUTO [id number] 04:10:00 * Test Item Value Reference Range [...] = 2801) 2 % 0-1 H PROTHROMBIN TIME/[id number] 04:07:00* Test Item Value Reference Range Interpretation [...] for patie nts wiht mechanical heart valves.BLOOD [id number] 20:01:00* Test Item Value Reference Range Interpretation Comments CULTURE (BEAKER) (test code = 1095) No growth in 5 days BLOOD [id number] 20:01:00* Test Item Value Reference Range Interpretation Comments CULTURE (BEAKER) (test code = 1095) No growth in 5 days U/S, [id number] 16:58:00Worsening leukocytosis, to rule out SBP. Please do not remove >3 LReason for exam:->ascites, rule out SBPFINAL REPORT Paracentesis dated 10/27/2018 Procedure: Ultrasound-guided paracentesis. Preprocedure diagnosis: Ascites Postprocedure diagnosis: Ascites Conscious sedation: None. Radiologist: Keith Garcia M.D. Plant Operations Manager: None Anesthesia: 1% Xylocaine mixed with sodium bicarbonate local anesthesia. Te chnique: After obtaining informed consent, ultrasound-guided paracentesis was p erformed under usual sterile technique. Using a 5 [place] drainage catheter, punc ture was made in the right lower quadrant abdomen. Approximately 2000 cc of mayra r yellowish fluid was removed. Patient tolerated the procedure well without comp lication. Complication: None Graft/Implant: None Estimated Blood Loss: None Impr ession: Ultrasound-guided paracentesis. Signed: Keith Garcia MDReport Verified Da te/Time: 10/27/2018 16:58:17 Reading Location: [facility] C013Y CT Body Reading Viktoriya m FLUID CELL COUNT WITH [id number] 16:24:00* Test Item Value Reference Range Interpretation [...] code = 2873) EDTA Tube LACTIC ACID, [id number] 13:51:00* Test Item Value Reference Range Interpretation Comments LACTATE BLOOD VENOUS (2) (BEAKER) (test code = 2872) 0.8 mmol/L 0 .5-2.2 Sepsis screeningSpecimen markedly ictericBASIC METABOLIC [id number] 05:53:00* Test Item Value Reference Range Interpretation [...] FOR DIALYSIS PATIENTS. Specimen markedly ictericHEPATIC FUNCTION [id number] 05:51:00* Test Item Value Reference Range Interpretation [...] 347) 30 U/L 6-55 Specimen markedly ictericPROTHROMBIN TIME/[id number] 05:07:00* Test Item Value Reference Range Interpretation [...] mechanical heart valves.CBC W/PLT COUNT & AUTO [id number] 04:52:00* Test Item Value Reference Range Interpretation [...] 2801) 2 % 0-1 H U/S, ABDOMINAL, [id number] 13:11:00Abdomen limited area? Add comment if clarification [...] [place]ort Verified Date/Time: 10/26/2018 13:11:32 Reading Location: [facility] C013T Transitional Reading Room C METABOLIC [id number] 08:13:00* Test Item Value Reference Range Interpretation [...] FOR DIALYSIS PATIENTS. Specimen markedly ictericHEPATIC FUNCTION [id number] 08:13:00* Test Item Value Reference Range Interpretation [...] Specimen markedly ictericCBC W/PLT COUNT & AUTO [id number] 05:46:00 * Test Item Value Reference Range [...] = 2801) 2 % 0-1 H PROTHROMBIN TIME/[id number] 05:43:00* Test Item Value Reference Range Interpretation [...] for patie nts wiht mechanical heart valves.TISSUE [id number] 18:03:00Surgical Pathology Report Case: [id number] Authorizing Provider: Shy Parisi MD Collected: 10/19/2018 0856 Ordering Location: [address] Received: 10/21/2018 0830 Service Pathologist: Jefferson Martin MD Specimens: A) - Large Intestine, Colon - Cecum, HEALING ULCER BX B) - Polyp, Colon - Right/Ascending, TAKEN BY FRCP 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 CPT: 06923; 80110 x 4Addendum electronica lly signed by Samina Arteaga MD on 10/25/2018 at 6:03 PMA. COLON, CECUM , HEALING ULCER, BIOPSY: - COLONIC MUCOSA WITH GRANULATION TISSUE, COMPATIBL E WITH HEALING ULCER - NEGATIVE FOR DYSPLASIA OR CARCINOMA (SEE COMMENT)B. C OLON, ASCENDING, POLYPECTOMY: - TUBULAR ADENOMA Signing Pathologist Dir ect Phone Line: [phone] signed by Jefferson Martin MD on 9 at 7:56 PMA. No dense lymphoid infiltrates are seen in the current biopsy. He matopathology consultation will be issued in an addendum.[id number] X 2Pre and postop diagnosis: gastrointestinal hemorrhage, [...] in toto in B1. CG/pl Performed.HEPATIC FUNCTION [id number] 04:53:00* Test Item Value Reference Range Interpretation [...] 35 U/L 6-55 Specimen markedly ictericBASIC METABOLIC [id number] 04:53:00* Test Item Value Reference Range Interpretation [...] APPLICABLE FOR DIALYSIS PATIENTS. Specimen markedly ictericPROTHROMBIN TIME/[id number] 04:27:00* Test Item Value Reference Range Interpretation [...] mechanical heart valves.CBC W/PLT COUNT & AUTO [id number] 04:13:00* Test Item Value Reference Range Interpretation [...] 2801) 2 % 0-1 H BASIC METABOLIC [id number] 05:54:00* Test Item Value Reference Range Interpretation [...] FOR DIALYSIS PATIENTS. Specimen markedly ictericHEPATIC FUNCTION [id number] 05:54:00* Test Item Value Reference Range Interpretation [...] = 347) 31 U/L 6-55 Specimen markedly pmehycqJXECLFFLGY3294-37-72 05:53:00* Test Item Value Reference Range Interpretation Comments PHOSPHORUS (BEAKER) (test code = 604) 2.0 mg/dL 2.3-4.7 L [id number] 05:53:00* Test Item Value Reference Range Interpretation Comments MAGNESIUM (BEAKER) (test code = 627) 2.2 mg/dL 1.6-2.6 CBC W/PLT COUNT & AUTO [id number] 05:27:00* Test Item Value Reference Range Interpretation [...] = 2801) 2 % 0-1 H PROTHROMBIN TIME/[id number] 05:27:00* Test Item Value Reference Range Interpretation [...] patie nts wiht mechanical heart valves.BASIC METABOLIC [id number] 11:14:00* Test Item Value Reference Range Interpretation [...] FOR DIALYSIS PATIENTS. ADD-ONSpecimen markedly ictericMISCELLANEOUS LAB [id number] 07:36:00* Test Item Value Reference Range Interpretation Comments SCAN RESULT (test code = 1324408) HEPATIC FUNCTION [id number] 05:32:00* Test Item Value Reference Range Interpretation [...] = 347) 33 U/L 6-55 Specimen markedly opfisbgPOGHKMXLJW5579-77-02 05:21:00* Test Item Value Reference Range Interpretation Comments PHOSPHORUS (BEAKER) (test code = 604) 2.2 mg/dL 2.3-4.7 L [id number] 05:21:00* Test Item Value Reference Range Interpretation Comments MAGNESIUM (BEAKER) (test code = 627) 2.2 mg/dL 1.6-2.6 PROTHROMBIN TIME/[id number] 05:00:00* Test Item Value Reference Range Interpretation [...] mechanical heart valves.CBC W/PLT COUNT & AUTO [id number] 04:51:00* Test Item Value Reference Range Interpretation [...] = 2801) 2 % 0-1 H BLOOD [id number] 20:01:00* Test Item Value Reference Range Interpretation Comments CULTURE (BEAKER) (test code = 1095) No growth in 5 days BLOOD [id number] 20:01:00* Test Item Value Reference Range Interpretation Comments CULTURE (BEAKER) (test code = 1095) No growth in 5 days URINALYSIS W/ REFLEX URINE [id number] 17:08:00* Test Item Value Reference Range Interpretation [...] SOURCE(BEAKER) (test code = 2795) BASIC METABOLIC [id number] 10:18:00* Test Item Value Reference Range Interpretation [...] Specimen markedly ictericCBC W/PLT COUNT & AUTO [id number] 09:06:00 * Test Item Value Reference Range [...] 347) 37 U/L 6-55 Specimen markedly ictericPROTHROMBIN TIME/[id number] 06:10:00* Test Item Value Reference Range Interpretation [...] code = 2640) Cell counts confi rmed. [id number]-[id number] (BEAKER) (test code = 2849) Colleen Arteaga [...] Slide comments: CBC W/PLT COUNT & AUTO ROFPYCGZODMW4853-00-02 09:56:00* Test Item Value Reference Range Interpretation [...] 0 /100 WBC 0 -0 BASIC METABOLIC [id number] 09:01:00* Test Item Value Reference Range Interpretation [...] DIALYSIS PATIENTS. Specimen markedly ictericVITAMIN B12 AND [id number] 08:56:00* Test Item Value Reference Range Interpretation Comments VITAMIN B12 (BEAKER) (test code = 774) > pg/mL 213-816 H FOLATE (BEAKER) (test code = 362) 15.2 ng/mL >=7.0 RETICULOCYTE [id number] 06:56:00* Test Item Value Reference Range Interpretation Comments RETICULOCYTE COUNT PCT (BEAKER) (test code = 575) 8.0 % 0.5- 1.8 H HEPATIC FUNCTION [id number] 06:35:00* Test Item Value Reference Range Interpretation [...] = 347) 34 U/L 6-55 Specimen markedly hgdruwxRQHZEARWMMO8060-42-31 06:12:00* Test Item Value Reference Range Interpretation Comments HAPTOGLOBIN (BEAKER) (test code = 366) 67 mg/dL 14-258 PROTHROMBIN TIME/[id number] 05:26:00* Test Item Value Reference Range Interpretation [...] 452 U/L 125-2 20 H BASIC METABOLIC [id number] 07:58:00* Test Item Value Reference Range Interpretation [...] FOR DIALYSIS PATIENTS. Specimen markedly ictericHEPATIC FUNCTION [id number] 07:38:00* Test Item Value Reference Range Interpretation [...] = 347) 26 U/L 6-55 Specimen markedly zfljjgeOSURAAJQC0560-20-96 07:36:00* Test Item Value Reference Range Interpretation Comments MAGNESIUM (BEAKER) (test code = 627) 2.2 mg/dL 1.6-2.6 GJLFBGICPS8559-07-40 07:36:00* Test Item Value Reference Range Interpretation Comments PHOSPHORUS (BEAKER) (test code = 604) 2.8 mg/dL 2.3-4.7 CBC W/PLT COUNT & AUTO RMKPAKMDAAAF0297-31-08 06:58:00* Test Item Value Reference Range Interpretation [...] = 2801) 2 % 0-1 H PROTHROMBIN TIME/[id number] 06:50:00* Test Item Value Reference Range Interpretation [...] mechanical heart valves.CBC W/PLT COUNT & AUTO [id number] 22:22:00* Test Item Value Reference Range Interpretation [...] 0 -0 CBC W/PLT COUNT & AUTO FUYIQVJAYSZA1536-31-35 16:47:00* Test Item Value Reference Range Interpretation [...] 0 -0 CBC W/PLT COUNT & AUTO [id number] 09:23:00* Test Item Value Reference Range Interpretation [...] = 347) 20 U/L 6-55 Specimen markedly pymmsxbVLAEXVTHK6371-52-96 05:23:00* Test Item Value Reference Range Interpretation Comments MAGNESIUM (BEAKER) (test code = 627) 2.2 mg/dL 1.6-2.6 BASIC METABOLIC [id number] 05:23:00* Test Item Value Reference Range Interpretation [...] NOT APPLICABLE FOR DIALYSIS PATIENTS. Specimen markedly tjwirvrVNEOEPZSWY4211-77-59 05:23:00* Test Item Value Reference Range Interpretation Comments PHOSPHORUS (BEAKER) (test code = 604) 1.6 mg/dL 2.3-4.7 L PROTHROMBIN TIME/[id number] 04:53:00* Test Item Value Reference Range Interpretation [...] pat ients with mechanical heart valves.CREATININE, RANDOM [id number] 02:02:00* Test Item Value Reference Range Interpretation Comments CREATININE URINE (BEAKER) (test code = 375) 44.3 mg/dL Reference Range: No NormalsSODIUM, RANDOM [id number] 02:02:00* Test Item Value Reference Range Interpretation Comments SODIUM URINE (BEAKER) (test code = 243) 93 meq/L Reference Range: No NormalsUREA NITROGEN, RANDOM [id number] 02:02:00* Test Item Value Reference Range Interpretation Comments UREA NITROGEN URINE (BEAKER) (test code = 538) 120 mg/dL Reference Range: No NormalsCBC W/PLT COUNT & AUTO [id number] 20:17:00* Test Item Value Reference Range Interpretation [...] Slide comments: CBC W/PLT COUNT & AUTO [id number] 13:37:00* Test Item Value Reference Range Interpretation [...] Slide comments: CBC W/PLT COUNT & AUTO UNZMGIWSCISF2191-02-53 10:50:00* Test Item Value Reference Range Interpretation [...] comment: User comments: Slide comments: LACTIC ACID, [id number] 07:43:00* Test Item Value Reference Range Interpretation Comments LACTATE BLOOD VENOUS (2) (BEAKER) (test code = 2872) 0.9 mmol/L 0 .5-2.2 Specimen slightly hemolyzed Specimen markedly ictericHEPATIC FUNCTION [id number] 06:45:00* Test Item Value Reference Range Interpretation [...] 19 U/L 6-55 Specimen markedly ictericBASIC METABOLIC [id number] 06:44:00* Test Item Value Reference Range Interpretation [...] APPLICABLE FOR DIALYSIS PATIENTS. Specimen markedly ictericPROTHROMBIN TIME/[id number] 05:44:00* Test Item Value Reference Range Interpretation [...] mechanical heart valves.CBC W/PLT COUNT & AUTO [id number] 21:39:00* Test Item Value Reference Range Interpretation [...] comments: Slide comments: URINALYSIS W/ REFLEX URINE [id number] 18:43:00* Test Item Value Reference Range Interpretation [...] SOURCE(BEAKER) (test code = 2795) BASIC METABOLIC [id number] 18:23:00* Test Item Value Reference Range Interpretation [...] FOR DIALYSIS PATIENTS. Specimen markedly ictericU/S, ABDOMINAL, [id number] 17:43:00With doppler Reason for exam:->elevated liver enzymes, [...] MDReport Verified Date/Time: 10/17/2018 17:43:28 Reading Location: [facility] C013W Consult Reading Room U/S, DUPLEX, [id number] 17:43:00With doppler Reason for exam:->elevated liver enzymes, [...] Verified Date /Time: 10/17/2018 17:43:28 Reading Location: [facility]013[facility] Consult Reading Room [id number] 17:35:00* Test Item Value Reference Range Interpretation Comments MAGNESIUM (BEAKER) (test code = 627) 2.3 mg/dL 1.6-2.6 CREATINE KINASE (CK)2018-10-17 16:29:00* Test Item Value Reference Range Interpretation Comments CREATINE KINASE TOTAL (BEAKER) (test code = 380) 29 U/L 29-20 0 [id number] 16:11:00* Test Item Value Reference Range Interpretation Comments PROCALCITONIN (BEAKER) (test code = 3036) 0.71 ng/mL <0.05 H SEPSIS RISK (ng/mL)Low: 0.05-0.50Intermediate: 0.51-2.00High: > =2.01LACTIC ACID, [id number] 15:42:00* Test Item Value Reference Range Interpretation Comments LACTATE BLOOD VENOUS (2) (BEAKER) (test code = 2872) 1.2 mmol/L 0 .5-2.2 Specimen slightly hemolyzed Specimen markedly ictericCBC W/PLT COUNT & AUTO PPMFYCPJYHBQ7266-00-03 15:29:00 * Test Item Value Reference Range [...] = 413) 0 /100 WBC 0 -0 [id number] 15:22:00* Test Item Value Reference Range Interpretation Comments ETHANOL (BEAKER) (test code = 400) < mg/dL <=10 CBC W/PLT COUNT & AUTO [id number] 14:47:00* Test Item Value Reference Range Interpretation [...] 21 U/L 6-55 Specimen markedly ictericBASIC METABOLIC EZMVD4388-12-22 08:16:00* Test Item Value Reference Range Interpretation [...] PATIENTS. Specimen markedly ictericURINALYSIS W/ REFLEX URINE VMZOLTX2493-27-69 03:31:00* Test Item Value Reference Range Interpretation [...] (test code = 2795) Bilirubin Crystals seenBILIRUBIN, [id number] 00:59:00* Test Item Value Reference Range Interpretation Comments BILIRUBIN DIRECT (BEAKER) (test code = 706) 24.2 mg/dL 0.1-0.5 H Specimen slightly hemolyzed COMPREHENSIVE METABOLIC [id number] 00:58:00* Test Item Value Reference Range Interpretation [...] NOT APPLICABLE FOR DIALYSIS PATIENTS. Specimen markedly lpzwfqvYQLLSRLDT9046-23-08 00:13:00* Test Item Value Reference Range Interpretation Comments MAGNESIUM (BEAKER) (test code = 627) 1.5 mg/dL 1.6-2.6 L Specimen slightly hemolyzed PROTHROMBIN TIME/IFX4109-10-01 23:47:00* Test Item Value Reference Range Interpretation [...] mechanical heart valves.CBC W/PLT COUNT & AUTO QXGNXFDWLLUJ2218-04-47 23:43:00* Test Item Value Reference Range Interpretation [...] 0-1 H RAD, CHEST, 1 VIEW, NON [id number] 22:36:00Reason for exam:->SOBShould this be performed at [...] MDReport Verified Date/Time: 10/16/2018 22:36:02 Lactic Acid [id number] 20:02:00* Test Item Value Reference Range Interpretation Comments Lactic Acid Level (test code = Lactic Acid Level) 18.4 4.5- 19.[address] 19:23:00 [facility] [address] [address] Patient Name: INDRA GALVAN JR MR #: [id number] : 1980 Age/Sex: 37/M Req #: [id number] Adm Physician: Ordered by: MARYLU DUQUE MD Report #: [id number] Location: ER Room/Bed: Procedure: NM/HEPTOBILIARY Exam Date: [...] COPY TO: MARYLU DUQUE MD CT ABDOMEN/PELVIS [id number] 17:40:[address] [address] Patient Name: INDRA GALVAN JR MR #: [id number] : 1980 Age/Sex: 37/M Req #: [id number] Adm Physician: Ordered by: MARYLU DUQUE MD Report #: [id number] Location: ER Room/Bed: Procedure: CT/CT ABDOMEN/PELVIS W [...] 10/16/181749 COPY TO: MARYLU DUQUE MD Prothrombin Gyyq5807-20-00 17:34:00* Test Item Value Reference Range Interpretation Comments Prothrombin Time (test code = 5902-2) 18.5 11.9-14.5 [facility]viewProthromb Time International Ratio 2018-10-16 17:34:00* Test Item Value Reference Range Interpretation Comments Prothromb Time International Ratio (test code = 6301-6) 1.48 Oral Anticoagulant Therapy INR Values:1. Low Intensity Therapy 1.5 - 2.02 . Moderate Intensity Therapy 2.0 - 3.03. High Intensity Therapy(1) 2.5 - 3. 54. High Intensity Therapy(2) 3.0 - 4.05. Panic Value INR > 5.0 [facility]viewAcetaminophen Mbzeu2728-06-40 17:30:00* Test Item Value Reference Range Interpretation Comments Acetaminophen Level (test code = 98696-3) < 3 10-30 L [facility]viewUrine [id number] 16:09:00* Test Item Value Reference Range Interpretation Comments Urine WBC (test code = 5821-4) 0-5 0-5 [facility]view[facility] [id number] 16:09:00* Test Item Value Reference Range Interpretation Comments Urine RBC (test code = 70349-0) 6-10 0-5 H [facility]view[facility] Tljnhmvx9075-08-57 16:09:00* Test Item Value Reference Range Interpretation Comments Urine Bacteria (test code = 32766-6) MANY NONE H [facility]view[facility] Epithelial Kpbvj9357-21-14 16:09:00 * Test Item Value Reference Range Interpretation Comments Urine Epithelial Cells (test code = 57503-7) FEW NONE [facility]view[facility] Amorphous Szgwsrzq4238-85-28 16:09:00* Test Item Value Reference Range Interpretation Comments Urine Amorphous Sediment (test code = 8246-1) MODERATE FEW H [facility]viewU[facility] Fine Granular Qsjjv6397-64-80 16:09:00* Test Item Value Reference Range Interpretation Comments Urine Fine Granular Casts (test code = 39827-9) 1-5 >0 H [facility]viewU[facility] Zoals2803-01-20 15:58:00* Test Item Value Reference Range Interpretation Comments Urine Color (test code = 5778-6) BROWN YELLOW H [facility]view[facility] Ygxcpdl6109-14-04 15:58:00* Test Item Value Reference Range Interpretation Comments Urine Clarity (test code = 10962-7) CLOUDY CLEAR H [facility]viewU[facility] Specific Zpendqi9687-42-26 15:58:00 * Test Item Value Reference Range Interpretation Comments Urine Specific [place] (test code = 5811-5) 1.010 1.010-1.02 5 [facility]viewU[facility] [id number] 15:58:00* Test Item Value Reference Range Interpretation Comments Urine pH (test code = 32793-7) 7 5-7 [facility] Leukocyte Itrvbgsj1599-36-17 15:58:00* Test Item Value Reference Range Interpretation Comments Urine Leukocyte Esterase (test code = 41862-2) SMALL NEGATIV E [facility]view[facility] Kkghwiu3362-84-66 15:58:00* Test Item Value Reference Range Interpretation Comments Urine Nitrite (test code = 02716-9) POSITIVE NEGATIVE H [facility]viewU[facility] Evoxxao3565-30-93 15:58:00* Test Item Value Reference Range Interpretation Comments Urine Protein (test code = 30094-1) 2+ NEGATIVE H [facility]viewU[facility] Glucose (UA)2018-10-16 15:58:00* Test Item Value Reference Range Interpretation Comments Urine Glucose (UA) (test code = 01263-1) 2+ NEGATIVE H [facility]viewU[facility] Gtjsdyt1413-54-19 15:58:00* Test Item Value Reference Range Interpretation Comments Urine Ketones (test code = 30439-8) TRACE NEGATIVE H [facility]viewU[facility] Gpumsrnnmyvy8426-95-00 15:58:00* Test Item Value Reference Range Interpretation Comments Urine Urobilinogen (test code = 11108-4) 1 0.2-1 [facility]view[facility] Xmrscwwgc6139-39-81 15:58:00* Test Item Value Reference Range Interpretation Comments Urine Bilirubin (test code = 1977-8) LARGE NEGATIVE [facility]view[facility] Dmfxr8686-32-48 15:58:00* Test Item Value Reference Range Interpretation Comments Urine Blood (test code = 27275-8) 3+ NEGATIVE [facility]viewB-Type Natriuretic Oryerck9315-05-37 15:31:00* Test Item Value Reference Range Interpretation Comments B-Type Natriuretic Peptide (test code = 35788-4) 403.4 0-100 H [facility]viewCreatine Kinase YH9326-03-16 15:20:00* Test Item Value Reference Range Interpretation Comments Creatine Kinase MB (test code = 70172-9) 0.40 0-5.0 [facility]viewTroponin Y2448-32-16 15:20:00* Test Item Value Reference Range Interpretation Comments Troponin I (test code = GQI8737) 0.012 0-0.300 [facility]odium Tiepa3801-93-57 15:19:00* Test Item Value Reference Range Interpretation Comments Sodium Level (test code = 2951-2) 134 136-145 L [facility]viewPotassium Jozdo5673-23-79 15:19:00* Test Item Value Reference Range Interpretation Comments Potassium Level (test code = 2823-3) 2.7 3.5-5.1 LL Results repeated and called to DR. KELSEY at 1518 on 10/16/18 by VICKY WHITTAKER. Read back and verified.[facility]viewChloride Level 2018-10-16 15:19:00* Test Item Value Reference Range Interpretation Comments Chloride Level (test code = 2075-0) 93 98-107 L [facility] PlainviewCarbon Dioxide Xxzfc9259-38-00 15:19:00* Test Item Value Reference Range Interpretation Comments Carbon Dioxide Level (test code = 2028-9) 28 22-29 [facility] PlainviewAnion Spg7616-19-93 15:19:00* Test Item Value Reference Range Interpretation Comments Anion Gap (test code = 25744-6) 15.7 8-16 [facility]viewBlood Urea Txmmrbyx2554-30-73 15:19:00* Test Item Value Reference Range Interpretation Comments Blood Urea Nitrogen (test code = 3094-0) 9 7-26 [facility]viewCreatinine2019-08-21 15:19:00* Test Item Value Reference Range Interpretation Comments Creatinine (test code = 2160-0) 1.47 0.72-1.25 H [facility]viewBUN/Creatinine Dsbst8219-25-19 15:19:00* Test Item Value Reference Range Interpretation Comments BUN/Creatinine Ratio (test code = 3097-3) 6 6-25 [facility] PlainviewEstimat Glomerular Filtration Rate 2018-10-16 15:19:00* Test Item Value Reference Range Interpretation Comments Estimat Glomerular Filtration Rate (test code = 476066840) 53 >60 L Ranges were taken from the National Kidney Disease Education Program and the [facility] literature.Reference ranges:60 or greater: Dblcad48-66 ( for 3 consecutive months): Chronic kidney disease 15 or less: Kidney failureCovenant Health PlainviewGlucose Ifwnb2330-76-96 15:19:00* Test Item Value Reference Range Interpretation Comments Glucose Level (test code = QAG4501) 144 74-118 H [facility] PlainviewCalcium Bgnqz1147-26-66 15:19:00* Test Item Value Reference Range Interpretation Comments Calcium Level (test code = 77448-6) 8.5 8.4-10.2 [facility]viewTotal Besthpile0343-52-46 15:19:00* Test Item Value Reference Range Interpretation Comments Total Bilirubin (test code = 1975-2) > 25.0 0.2-1.2 H [facility] PlainviewAspartate Amino Transf (AST/SGOT) 2018-10-16 15:19:00* Test Item Value Reference Range Interpretation Comments Aspartate Amino Transf (AST/SGOT) (test code = Aspartate Amino Transf (AST/SGOT)) 98 5-34 H [facility] PlainviewAlanine Aminotransferase (ALT/SGPT) 2018-10-16 15:19:00* Test Item Value Reference Range Interpretation Comments Alanine Aminotransferase (ALT/SGPT) (test code = 1742-6) 22 0-55 [facility] PlainviewTotal Uianadq1708-82-29 15:19:00* Test Item Value Reference Range Interpretation Comments Total Protein (test code = 2885-2) 6.6 6.5-8.1 [facility] PlainviewAlbumin2019-08-21 15:19:00* Test Item Value Reference Range Interpretation Comments Albumin (test code = 1751-7) 2.5 3.5-5.0 L [facility] PlainviewGlobulin2019-08-21 15:19:00* Test Item Value Reference Range Interpretation Comments Globulin (test code = 76474-1) 4.1 2.3-3.5 H [facility] PlainviewAlbumin/Globulin Cdkvo1781-20-22 15:19:00 * Test Item Value Reference Range Interpretation Comments Albumin/Globulin Ratio (test code = 1759-0) 0.6 0.8-2.0 L [facility]viewAlkaline Rxxsgumqglk0239-89-95 15:19:00* Test Item Value Reference Range Interpretation Comments Alkaline Phosphatase (test code = 6768-6) 159 40-150 H [facility] PlainviewCreatine Huiykh8257-08-28 15:19:00* Test Item Value Reference Range Interpretation Comments Creatine Kinase (test code = 2157-6) 39 30-200 [facility]viewWhite Blood Ajlsm3301-95-89 14:59:00* Test Item Value Reference Range Interpretation Comments White Blood Count (test code = 6690-2) 18.65 4.8-10.8 H [facility] PlainviewRed Blood Mefsc4793-47-32 14:59:00* Test Item Value Reference Range Interpretation Comments Red Blood Count (test code = 789-8) 2.11 4.3-5.7 L [facility]viewHemoglobin2019-08-21 14:59:00* Test Item Value Reference Range Interpretation Comments Hemoglobin (test code = 67421-5) 7.7 14.0-18.0 L [facility]viewHematocrit2019-08-21 14:59:00* Test Item Value Reference Range Interpretation Comments Hematocrit (test code = 4544-3) 22.2 38.2-49.6 L [facility] PlainviewMean Corpuscular Ixavoi6388-99-36 14:59:00* Test Item Value Reference Range Interpretation Comments Mean Corpuscular Volume (test code = 787-2) 105.2 81-99 H [facility] PlainviewMean Corpuscular Qhngklgjnj4456-26-63 14:59:00* Test Item Value Reference Range Interpretation Comments Mean Corpuscular Hemoglobin (test code = 785-6) 36.5 28-32 H [facility] PlainviewMean Corpuscular Hemoglobin Concent 2018-10-16 14:59:00* Test Item Value Reference Range Interpretation Comments Mean Corpuscular Hemoglobin Concent (test code = 786-4) 34.7 31-35 [facility]viewRed Cell Distribution Opvto6199-29-11 14:59:00* Test Item Value Reference Range Interpretation Comments Red Cell Distribution Width (test code = 25149-3) 14.0 11.7 -14.4 [facility] PlainviewPlatelet Byudv7403-73-58 14:59:00* Test Item Value Reference Range Interpretation Comments Platelet Count (test code = 777-3) 184 140-360 [facility]viewNeutrophils (%) (Auto)2018-10-16 14:59:00 * Test Item Value Reference Range Interpretation Comments Neutrophils (%) (Auto) (test code = 59056-9) 80.6 38.7-80.0 H [facility] PlainviewLymphocytes (%) (Auto)2018-10-16 14:59:00 * Test Item Value Reference Range Interpretation Comments Lymphocytes (%) (Auto) (test code = 736-9) 5.3 18.0-39.1 L [facility] PlainviewMonocytes (%) (Auto)2018-10-16 14:59:00* Test Item Value Reference Range Interpretation Comments Monocytes (%) (Auto) (test code = 5905-5) 11.7 4.4-11.3 H [facility]viewEosinophils (%) (Auto)2018-10-16 14:59:00 * Test Item Value Reference Range Interpretation Comments Eosinophils (%) (Auto) (test code = 713-8) 0.5 0.0-6.0 [facility]viewBasophils (%) (Auto)2018-10-16 14:59:00* Test Item Value Reference Range Interpretation Comments Basophils (%) (Auto) (test code = 706-2) 0.3 0.0-1.0 [facility] PlainviewIM GRANULOCYTES %2018-10-16 14:59:00* Test Item Value Reference Range Interpretation Comments IM GRANULOCYTES % (test code = IM GRANULOCYTES %) 1.6 0.0- 1.0 H [facility] PlainviewNeutrophils # (Auto)2018-10-16 14:59:00* Test Item Value Reference Range Interpretation Comments Neutrophils # (Auto) (test code = 751-8) 15.0 2.1-6.9 H [facility] PlainviewLymphocytes # (Auto)2018-10-16 14:59:00* Test Item Value Reference Range Interpretation Comments Lymphocytes # (Auto) (test code = 69263-0) 1.0 1.0-3.2 [facility]viewMonocytes # (Auto)2018-10-16 14:59:00* Test Item Value Reference Range Interpretation Comments Monocytes # (Auto) (test code = 742-7) 2.2 0.2-0.8 H [facility]viewEosinophils # (Auto)2018-10-16 14:59:00* Test Item Value Reference Range Interpretation Comments Eosinophils # (Auto) (test code = 711-2) 0.1 0.0-0.4 [facility]viewBasophils # (Auto)2018-10-16 14:59:00* Test Item Value Reference Range Interpretation Comments Basophils # (Auto) (test code = 704-7) 0.1 0.0-0.1 [facility] PlainviewAbsolute Immature Granulocyte (auto 2018-10-16 14:59:00* Test Item Value Reference Range Interpretation Comments Absolute Immature Granulocyte (auto (doug t code = Absolute Immature Granulocyte (auto) 0.30 0-0.1 H [facility] PlainviewAFB CULTURE + ZMKOI2210-22-04 07:33:00* Test Item Value Reference Range Interpretation Comments CULTURE (BEAKER) (test code = 1095) No acid-fast bacilli isolate d in 42 days AFB SMEAR (BEAKER) (test code = 994) No acid fast bacilli seen FUNGUS CULTURE + SREQT5112-02-73 17:11:00* Test Item Value Reference Range Interpretation Comments CULTURE (BEAKER) (test code = 1095) No fungus isolated in 28 days FUNGUS SMEAR (BEAKER) (test code = 1406) No fungi seen CREATINE KINASE (CK)2018-07-09 05:38:00* Test Item Value Reference Range Interpretation Comments CREATINE KINASE TOTAL (BEAKER) (test code = 380) 17 U/L 29-20 0 L JOHADVJAL3086-29-68 05:37:00* Test Item Value Reference Range Interpretation Comments MAGNESIUM (BEAKER) (test code = 627) 1.6 mg/dL 1.6-2.6 BASIC METABOLIC BEJEB3162-64-52 05:37:00* Test Item Value Reference Range Interpretation [...] FOR DIALYSIS PATIENTS. Specimen moderately ictericHEPATIC FUNCTION QJWPV1884-35-04 05:37:00* Test Item Value Reference Range Interpretation [...] 347) 83 U/L 6-55 H Specimen moderately jbuzingAUST2033-51-65 05:32:00* Test Item Value Reference Range Interpretation Comments PARTIAL THROMBOPLASTIN TIME (BEAKER) (test code = 760) 45.3 seconds 22.5-36.0 H PROTHROMBIN TIME/RPS5005-75-70 05:31:00* Test Item Value Reference Range Interpretation [...] mechanical heart valves.CBC W/PLT COUNT & AUTO TFULAOBHDZCU8003-83-54 05:08:00* Test Item Value Reference Range Interpretation [...] code = 2801) 1 % 0-1 POCT-GLUCOSE LRLWJ1554-11-02 22:05:00* Test Item Value Reference Range Interpretation Comments POC-GLUCOSE METER (BEAKER) (test code = 1538) 168 mg/dL 70-[address] [facility] [address] [facility] [address] [place], ESOPH, SWALLOW FUNCTION, WITH CINE OR DVXNL3205-64-36 10:04:00Reason for exam:->evaluate swallow safety after prolonged [...] MDReport Verified Date/Time: 07/08/2018 10:04:01 Reading Location: [facility] C013X [facility] Consult Reading Room KRALT0557-53-41 06:21:00* Test Item Value Reference Range Interpretation Comments MAGNESIUM (BEAKER) (test code = 627) 1.7 mg/dL 1.6-2.6 BASIC METABOLIC [id number] 06:21:00* Test Item Value Reference Range Interpretation [...] FOR DIALYSIS PATIENTS. Specimen moderately ictericHEPATIC FUNCTION MFGFZ0823-13-10 06:21:00* Test Item Value Reference Range Interpretation [...] Specimen moderately ictericCBC W/PLT COUNT & AUTO IONBCZUOILWF4481-61-84 06:09:00* Test Item Value Reference Range Interpretation [...] (test code = 2801) 1 % 0-1 YPYM1851-81-79 05:49:00* Test Item Value Reference Range Interpretation Comments PARTIAL THROMBOPLASTIN TIME (BEAKER) (test code = 760) 45.0 seconds 22.5-36.0 H PROTHROMBIN TIME/DZR8255-08-97 05:48:00* Test Item Value Reference Range Interpretation Comments PROTIME (BEAKER) (test code = 759) 15.7 seconds 11.7-14.7 H INR (BEAKER) (test code = 370) 1.3 <=5.9 RECOMMENDED COUMADIN/WARFARIN INR THERAPY RANGESSTANDARD DOSE: 2.0 - 3.0 Inclu herb: PROPHYLAXIS for venous thrombosis, systemic embolization; TREATMENT for giulia ous thrombosis and/or pulmonary embolus.HIGH RISK: Target INR is 2.5-3.5 for pat ients with mechanical heart valves.POCT-GLUCOSE LAPBY3709-30-45 05:45:00* Test Item Value Reference Range Interpretation Comments POC-GLUCOSE METER (BEAKER) (test code = 1538) 104 mg/dL 70-110 TESTED AT [address] [address] POCT-GLUCOSE SRLHF2536-10-39 00:02:00* Test Item Value Reference Range Interpretation Comments POC-GLUCOSE METER (BEAKER) (test code = 1538) 102 mg/dL 70-110 TESTED AT [address] [address] POCT-GLUCOSE IQKBN2298-39-94 18:01:00* Test Item Value Reference Range Interpretation Comments POC-GLUCOSE METER (BEAKER) (test code = 1538) 91 mg/dL 70-110 TESTED AT [address] [address] POCT-GLUCOSE [id number] 12:34:00* Test Item Value Reference Range Interpretation Comments POC-GLUCOSE METER (BEAKER) (test code = 1538) 94 mg/dL 70-110 TESTED AT [address] [address] POCT-GLUCOSE UFIOE6750-17-48 06:22:00* Test Item Value Reference Range Interpretation Comments POC-GLUCOSE METER (BEAKER) (test code = 1538) 111 mg/dL 70-110 H TESTED AT [address] [address] [id number] 06:14:00* Test Item Value Reference Range Interpretation Comments MAGNESIUM (BEAKER) (test code = 627) 1.8 mg/dL 1.6-2.6 BASIC METABOLIC KAUMB1897-28-90 06:14:00* Test Item Value Reference Range Interpretation [...] FOR DIALYSIS PATIENTS. Specimen moderately ictericHEPATIC FUNCTION [id number] 06:14:00* Test Item Value Reference Range Interpretation [...] 347) 93 U/L 6-55 H Specimen moderately hhdavlqKJKZ4583-48-12 05:42:00* Test Item Value Reference Range Interpretation Comments PARTIAL THROMBOPLASTIN TIME (BEAKER) (test code = 760) 43.0 seconds 22.5-36.0 H PROTHROMBIN TIME/NIS5304-54-24 05:41:00* Test Item Value Reference Range Interpretation [...] mechanical heart valves.CBC W/PLT COUNT & AUTO NLGCGXLBETWY5753-53-94 05:30:00* Test Item Value Reference Range Interpretation [...] code = 2801) 1 % 0-1 POCT-GLUCOSE [id number] 00:27:00* Test Item Value Reference Range Interpretation Comments POC-GLUCOSE METER (BEAKER) (test code = 1538) 110 mg/dL 70-110 TESTED AT [address] [address] POCT-GLUCOSE [id number] 17:58:00* Test Item Value Reference Range Interpretation Comments POC-GLUCOSE METER (BEAKER) (test code = 1538) 165 mg/dL 70-110 H TESTED AT [address] [address] POCT-GLUCOSE [id number] 12:01:00* Test Item Value Reference Range Interpretation Comments POC-GLUCOSE METER (BEAKER) (test code = 1538) 138 mg/dL 70-110 H TESTED AT [address] [address] [id number] 07:32:00* Test Item Value Reference Range Interpretation Comments PARTIAL THROMBOPLASTIN TIME (BEAKER) (test code = 760) 43.2 seconds 22.5-36.0 H PROTHROMBIN TIME/[id number] 07:31:00* Test Item Value Reference Range Interpretation Comments PROTIME (BEAKER) (test code = 759) 15.1 seconds 11.7-14.7 H INR (BEAKER) (test code = 370) 1.3 <=5.9 RECOMMENDED COUMADIN/WARFARIN INR THERAPY RANGESSTANDARD DOSE: 2.0 - 3.0 Inclu herb: PROPHYLAXIS for venous thrombosis, systemic embolization; TREATMENT for giulia ous thrombosis and/or pulmonary embolus.HIGH RISK: Target INR is 2.5-3.5 for pat ients with mechanical heart valves.KKJYJSSST6198-72-46 06:50:00* Test Item Value Reference Range Interpretation Comments MAGNESIUM (BEAKER) (test code = 627) 1.5 mg/dL 1.6-2.6 L BASIC METABOLIC [id number] 06:50:00* Test Item Value Reference Range Interpretation [...] FOR DIALYSIS PATIENTS. Specimen moderately ictericHEPATIC FUNCTION [id number] 06:50:00* Test Item Value Reference Range Interpretation [...] Specimen moderately ictericCBC W/PLT COUNT & AUTO MQMZKXCDHANH5687-37-23 06:49:00* Test Item Value Reference Range Interpretation [...] code = 2801) 1 % 0-1 POCT-GLUCOSE [id number] 06:06:00* Test Item Value Reference Range Interpretation Comments POC-GLUCOSE METER (BEAKER) (test code = 1538) 165 mg/dL 70-[address] [facility] [address] [place] [address] POCT-GLUCOSE [id number] 00:15:00* Test Item Value Reference Range Interpretation Comments POC-GLUCOSE METER (BEAKER) (test code = 1538) 132 mg/dL 70-110 H TESTED AT [address] [address] POCT-GLUCOSE [id number] 21:55:00* Test Item Value Reference Range Interpretation Comments POC-GLUCOSE METER (BEAKER) (test code = 1538) 161 mg/dL 70-110 H TESTED AT [address] [address] POCT-GLUCOSE [id number] 17:57:00* Test Item Value Reference Range Interpretation Comments POC-GLUCOSE METER (BEAKER) (test code = 1538) 136 mg/dL 70-110 H TESTED AT [address] [address] TISSUE [id number] 16:12:00Surgical Pathology Report Case: [id number] Authorizing Provider: Neptali Kolb, Collected: 07/04/2018 0827 Ordering Location: [address] Received: 07/04/2018 1313 Pathologist: Be Arenas MD Specimen: Cecum, R/O lymphoma PART A CECAL BIOPSY:GRANULATION TISSUE.NO EVIDENCE OF LYMPHOMA OR CARCINOMA..IMMUNOSTAINS FOR CMV, HSV1, HSV2 ARE NEGATIVE.SPECIAL STAINS FOR FUNGAL ORGANISMS (GMS, PAS) ARE NEGATIVE.SEE DIAGNOSTIC COMMENT. Signing Pathologist Direct Phone Line: [phone] signed by Be Arenas MD on 07/05/2018 [...] the sampled material may not be fully footwear 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 The prominent B cell population identified in the prior study ([id number]) is not identified in the current study. If there is a strong clinical concern for a malignant process, additional tissue based studies are recommended as the sampled material may not be fully footwear 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 59015, 20435, 10078P8, [id number] ulcer lower GI bleeding, rule out lymphomaCecum Received in formalin labeled as "cecum, rule out lymphoma" are multiple more than five red-guajardo tissue fragments ranging from 0.1 to 0.4 cm. The specimen is submitted in toto in one cassette. [place]/plperformedThe interpretation of this case included the use of immunohistochemistry or special stains.BLOCK A1- GMS, PAS, HSV1, HSV2, CD20, PAX5, CD3, TY8Vkpbwlo Slides Exa mined: In-house known positive controls were evaluated along with the test tiss ue. These control slides run alongside of the patients sample show appropriate staining. Internal positive and negative controls when available are evaluated I mmunohistochemistry technical testing was performed at [facility], Pathology Laboratory where it was [...] to perfo high complexity clinical laboratory testing.POCT-GLUCOSE [id number] 12:01:00* Test Item Value Reference Range Interpretation Comments POC-GLUCOSE METER (BEAKER) (test code = 1538) 157 mg/dL 70-[address] [facility] [address] [facility] [address] CBC W/PLT COUNT & AUTO [id number] 07:05:00* Test Item Value Reference Range Interpretation [...] Received comment: User comments: Slide comments: POCT-GLUCOSE [id number] 06:09:00* Test Item Value Reference Range Interpretation Comments POC-GLUCOSE METER (BEAKER) (test code = 1538) 148 mg/dL 70-[address] [facility] [address] [facility] [address] [id number] 05:03:00* Test Item Value Reference Range Interpretation Comments MAGNESIUM (BEAKER) (test code = 627) 1.7 mg/dL 1.6-2.6 BASIC METABOLIC [id number] 05:03:00* Test Item Value Reference Range Interpretation [...] FOR DIALYSIS PATIENTS. Specimen moderately ictericHEPATIC FUNCTION [id number] 05:03:00* Test Item Value Reference Range Interpretation [...] 347) 112 U/L 6-55 H Specimen moderately [id number] 04:56:00* Test Item Value Reference Range Interpretation Comments PARTIAL THROMBOPLASTIN TIME (BEAKER) (test code = 760) 49.3 seconds 22.5-36.0 H PROTHROMBIN TIME/[id number] 04:55:00* Test Item Value Reference Range Interpretation Comments PROTIME (BEAKER) (test code = 759) 16.0 seconds 11.7-14.7 H INR (BEAKER) (test code = 370) 1.4 <=5.9 RECOMMENDED COUMADIN/WARFARIN INR THERAPY RANGESSTANDARD DOSE: 2.0 - 3.0 Inclu herb: PROPHYLAXIS for venous thrombosis, systemic embolization; TREATMENT for giulia ous thrombosis and/or pulmonary embolus.HIGH RISK: Target INR is 2.5-3.5 for pat ients with mechanical heart valves.POCT-GLUCOSE [id number] 00:01:00* Test Item Value Reference Range Interpretation Comments POC-GLUCOSE METER (BEAKER) (test code = 1538) 144 mg/dL 70-[address] [facility] [address] [facility] [address] POCT-GLUCOSE [id number] 18:04:00* Test Item Value Reference Range Interpretation Comments POC-GLUCOSE METER (BEAKER) (test code = 1538) 113 mg/dL 70-[address] [facility] [address] [facility] [address] POCT-GLUCOSE [id number] 11:48:00* Test Item Value Reference Range Interpretation Comments POC-GLUCOSE METER (BEAKER) (test code = 1538) 92 mg/dL 70-[address] [facility] [address] [facility] [address] CBC W/PLT COUNT & AUTO [id number] 10:15:00* Test Item Value Reference Range Interpretation [...] Received comment: User comments: Slide comments: POCT-GLUCOSE [id number] 06:36:00* Test Item Value Reference Range Interpretation Comments POC-GLUCOSE METER (BEAKER) (test code = 1538) 107 mg/dL 70-[address] [facility] [address] [facility] [address] [id number] 05:42:00* Test Item Value Reference Range Interpretation Comments MAGNESIUM (BEAKER) (test code = 627) 1.9 mg/dL 1.6-2.6 Specimen slightly hemolyzed BASIC METABOLIC [id number] 05:42:00* Test Item Value Reference Range Interpretation [...] FOR DIALYSIS PATIENTS. Specimen moderately ictericHEPATIC FUNCTION [id number] 05:42:00* Test Item Value Reference Range Interpretation [...] 6-55 H Specimen slightly hemolyzed Specimen moderately [id number] 05:35:00* Test Item Value Reference Range Interpretation Comments PARTIAL THROMBOPLASTIN TIME (BEAKER) (test code = 760) 40.6 seconds 22.5-36.0 H PROTHROMBIN TIME/[id number] 05:34:00* Test Item Value Reference Range Interpretation Comments PROTIME (BEAKER) (test code = 759) 16.0 seconds 11.7-14.7 H INR (BEAKER) (test code = 370) 1.3 <=5.9 RECOMMENDED COUMADIN/WARFARIN INR THERAPY RANGESSTANDARD DOSE: 2.0 - 3.0 Inclu herb: PROPHYLAXIS for venous thrombosis, systemic embolization; TREATMENT for giulia ous thrombosis and/or pulmonary embolus.HIGH RISK: Target INR is 2.5-3.5 for pat ients with mechanical heart valves.POCT-GLUCOSE [id number] 00:32:00* Test Item Value Reference Range Interpretation Comments POC-GLUCOSE METER (BEAKER) (test code = 1538) 106 mg/dL 70-[address] [facility] [address] [facility] [address] RAD, CHEST, 1 VIEW, NON [id number] 18:48:00Reason for exam:->SOBShould this be performed at the bedside?->YesFINAL REPORT Chest dated 07/03/2018 COMPARISON: Same day Clinical Information: SOB Comment: Heart is enlarged. Pulmonary vasculature is indistinct. Interstitial disease is seen bilaterally suggestive of vascular congestion or pulmonary edema. No pleural effusion or pneumothorax is seen. Tracheostomy tube and feeding tube remain in place. Impression: No interval change. Signed: [facility] Verified Date/Time: 07/03/2018 18:48:11 Reading Location: [address] Consult Reading Room -GLUCOSE [id number] 17:36:00* Test Item Value Reference Range Interpretation Comments POC-GLUCOSE METER (BEAKER) (test code = 1538) 130 mg/dL 70-[address] [facility] [address] [facility] [address] HEMOGLOBIN AND [id number] 14:44:00* Test Item Value Reference Range Interpretation Comments HEMOGLOBIN (BEAKER) (test code = 410) 8.1 GM/DL 13.7-17.5 L HEMATOCRIT (BEAKER) (test code = 411) 25.8 % 40.1-51.0 L CBC W/PLT COUNT & AUTO [id number] 12:53:00* Test Item Value Reference Range Interpretation [...] MDReport Verified Date/Time: 07/03/2018 07:23:40 Reading Location: [facility] Radiology Reading Room -GLUCOSE [id number] 06:01:00* Test Item Value Reference Range Interpretation Comments POC-GLUCOSE METER (BEAKER) (test code = 1538) 203 mg/dL 70-[address] [facility] [address] [facility] [address] [id number] 05:39:00* Test Item Value Reference Range Interpretation Comments MAGNESIUM (BEAKER) (test code = 627) 1.7 mg/dL 1.6-2.6 BASIC METABOLIC [id number] 05:39:00* Test Item Value Reference Range Interpretation [...] FOR DIALYSIS PATIENTS. Specimen moderately ictericHEPATIC FUNCTION [id number] 05:39:00* Test Item Value Reference Range Interpretation [...] 347) 125 U/L 6-55 H Specimen moderately [id number] 05:10:00* Test Item Value Reference Range Interpretation Comments PARTIAL THROMBOPLASTIN TIME (BEAKER) (test code = 760) 41.9 seconds 22.5-36.0 H PROTHROMBIN TIME/[id number] 05:09:00* Test Item Value Reference Range Interpretation [...] pat ients with mechanical heart valves.HEMOGLOBIN AND [id number] 00:58:00 * Test Item Value Reference Range Interpretation Comments HEMOGLOBIN (BEAKER) (test code = 410) 8.3 GM/DL 13.7-17.5 L HEMATOCRIT (BEAKER) (test code = 411) 26.1 % 40.1-51.0 L POCT-GLUCOSE [id number] 23:25:00* Test Item Value Reference Range Interpretation Comments POC-GLUCOSE METER (BEAKER) (test code = 1538) 179 mg/dL 70-[address] [facility] [address] [facility] [address] POCT-GLUCOSE [id number] 18:01:00* Test Item Value Reference Range Interpretation Comments POC-GLUCOSE METER (BEAKER) (test code = 1538) 175 mg/dL 70-[address] [facility] [address] [facility] [address] HEMOGLOBIN AND [id number] 17:25:00* Test Item Value Reference Range Interpretation Comments HEMOGLOBIN (BEAKER) (test code = 410) 7.9 GM/DL 13.7-17.5 L HEMATOCRIT (BEAKER) (test code = 411) 24.0 % 40.1-51.0 L CBC W/PLT COUNT & AUTO [id number] 13:26:00* Test Item Value Reference Range Interpretation [...] Received comment: User comments: Slide comments: POCT-GLUCOSE [id number] 11:58:00* Test Item Value Reference Range Interpretation Comments POC-GLUCOSE METER (BEAKER) (test code = 1538) 148 mg/dL 70-110 H TESTED AT [address] [address] RAD, CHEST, 1 VIEW, NON [id number] 07:41:00Reason for exam:->Pulmonary edema evaluationShould this be [...] MDReport Verified Date/Time: 07/02/2018 07:41:39 Reading Location: [facility] Radiology Reading Room [id number] 07:01:00* Test Item Value Reference Range Interpretation Comments PARTIAL THROMBOPLASTIN TIME (BEAKER) (test code = 760) 46.2 seconds 22.5-36.0 H PROTHROMBIN TIME/[id number] 06:59:00* Test Item Value Reference Range Interpretation [...] pat ients with mechanical heart valves.HEMOGLOBIN AND [id number] 06:48:00 * Test Item Value Reference Range Interpretation Comments HEMOGLOBIN (BEAKER) (test code = 410) 7.9 GM/DL 13.7-17.5 L HEMATOCRIT (BEAKER) (test code = 411) 25.0 % 40.1-51.0 L POCT-GLUCOSE [id number] 06:17:00* Test Item Value Reference Range Interpretation Comments POC-GLUCOSE METER (BEAKER) (test code = 1538) 170 mg/dL 70-[address] [facility] [address] [place] [address] CREATINE KINASE (CK)2018-07-02 03:50:00* Test Item Value Reference Range Interpretation Comments CREATINE KINASE TOTAL (BEAKER) (test code = 380) 17 U/L 29-20 0 L [id number] 03:44:00* Test Item Value Reference Range Interpretation Comments MAGNESIUM (BEAKER) (test code = 627) 1.9 mg/dL 1.6-2.6 Specimen slightly hemolyzed BASIC METABOLIC [id number] 03:44:00* Test Item Value Reference Range Interpretation [...] FOR DIALYSIS PATIENTS. Specimen moderately ictericHEPATIC FUNCTION [id number] 03:44:00* Test Item Value Reference Range Interpretation [...] Specimen slightly hemolyzed Specimen moderately ictericHEMOGLOBIN AND [id number] 03:08:00* Test Item Value Reference Range Interpretation Comments HEMOGLOBIN (BEAKER) (test code = 410) 7.9 GM/DL 13.7-17.5 L HEMATOCRIT (BEAKER) (test code = 411) 24.8 % 40.1-51.0 L POCT-GLUCOSE [id number] 23:24:00* Test Item Value Reference Range Interpretation Comments POC-GLUCOSE METER (BEAKER) (test code = 1538) 155 mg/dL 70-[address] [facility] [address] [facility] [address] HEMOGLOBIN AND [id number] 18:35:00* Test Item Value Reference Range Interpretation Comments HEMOGLOBIN (BEAKER) (test code = 410) 7.9 GM/DL 13.7-17.5 L HEMATOCRIT (BEAKER) (test code = 411) 24.1 % 40.1-51.0 L POCT-GLUCOSE [id number] 17:49:00* Test Item Value Reference Range Interpretation Comments POC-GLUCOSE METER (BEAKER) (test code = 1538) 148 mg/dL 70-[address] [facility] [address] [facility] [address] POCT-GLUCOSE [id number] 11:44:00* Test Item Value Reference Range Interpretation Comments POC-GLUCOSE METER (BEAKER) (test code = 1538) 151 mg/dL 70-[address] [facility] [address] [facility] [address] HEMOGLOBIN AND [id number] 10:59:00* Test Item Value Reference Range Interpretation Comments HEMOGLOBIN (BEAKER) (test code = 410) 8.0 GM/DL 13.7-17.5 L HEMATOCRIT (BEAKER) (test code = 411) 24.0 % 40.1-51.0 L RAD, CHEST, 1 VIEW, NON [id number] 08:47:00Reason for exam:->Pulmonary edema evaluationShould this be [...] Valenzuelaeport Verified Date/Time: 07/01/2018 08:47:41 Reading Location: [facility] Diagnostic Imaging Reading Room - SLSWV F1 1120 -GLUCOSE [id number] 06:47:00 * Test Item Value Reference Range Interpretation Comments POC-GLUCOSE METER (BEAKER) (test code = 1538) 153 mg/dL 70-[address] [facility] [address] [place] [address] [id number] 04:06:00* Test Item Value Reference Range Interpretation Comments MAGNESIUM (BEAKER) (test code = 627) 1.9 mg/dL 1.6-2.6 BASIC METABOLIC [id number] 04:06:00* Test Item Value Reference Range Interpretation [...] FOR DIALYSIS PATIENTS. Specimen moderately ictericHEPATIC FUNCTION [id number] 04:06:00* Test Item Value Reference Range Interpretation [...] 347) 145 U/L 6-55 H Specimen moderately [id number] 03:50:00* Test Item Value Reference Range Interpretation Comments PARTIAL THROMBOPLASTIN TIME (BEAKER) (test code = 760) 46.8 seconds 22.5-36.0 H PROTHROMBIN TIME/[id number] 03:49:00* Test Item Value Reference Range Interpretation [...] mechanical heart valves.CBC W/PLT COUNT & AUTO [id number] 03:32:00* Test Item Value Reference Range Interpretation [...] 2801) 2 % 0-1 H HEMOGLOBIN AND [id number] 03:20:00* Test Item Value Reference Range Interpretation Comments HEMOGLOBIN (BEAKER) (test code = 410) 7.7 GM/DL 13.7-17.5 L HEMATOCRIT (BEAKER) (test code = 411) 24.3 % 40.1-51.0 L POCT-GLUCOSE [id number] 23:51:00* Test Item Value Reference Range Interpretation Comments POC-GLUCOSE METER (BEAKER) (test code = 1538) 146 mg/dL 70-110 H TESTED AT [place] [id number] [facility] [address] POCT-GLUCOSE [id number] 17:40:00* Test Item Value Reference Range Interpretation Comments POC-GLUCOSE METER (BEAKER) (test code = 1538) 194 mg/dL 70-110 H TESTED AT [address] [address] HEMOGLOBIN AND [id number] 17:33:00* Test Item Value Reference Range Interpretation Comments HEMOGLOBIN (BEAKER) (test code = 410) 7.9 GM/DL 13.7-17.5 L HEMATOCRIT (BEAKER) (test code = 411) 24.6 % 40.1-51.0 L CBC W/PLT COUNT & AUTO [id number] 15:29:00* Test Item Value Reference Range Interpretation [...] Received comment: User comments: Slide comments: POCT-GLUCOSE [id number] 11:51:00* Test Item Value Reference Range Interpretation Comments POC-GLUCOSE METER (BEAKER) (test code = 1538) 191 mg/dL 70-[address] [facility] [address] [facility] [address] HEMOGLOBIN AND [id number] 09:19:00* Test Item Value Reference Range Interpretation Comments HEMOGLOBIN (BEAKER) (test code = 410) 7.8 GM/DL 13.7-17.5 L HEMATOCRIT (BEAKER) (test code = 411) 24.1 % 40.1-51.0 L RAD, CHEST, 1 VIEW, NON [id number] 08:34:00Reason for exam:->Pulmonary edema evaluationShould this be [...] MDReport Verified Date/Time: 06/30/2018 08:34:20 Reading Location: [address] Consult Reading Room ESIUM 2018-06-30 07:03:00* Test Item Value Reference Range Interpretation Comments MAGNESIUM (BEAKER) (test code = 627) 2.1 mg/dL 1.6-2.6 BASIC METABOLIC [id number] 07:03:00* Test Item Value Reference Range Interpretation [...] FOR DIALYSIS PATIENTS. Specimen moderately ictericHEPATIC FUNCTION [id number] 07:03:00* Test Item Value Reference Range Interpretation [...] 162 U/L 6-55 H Specimen moderately ictericPOCT-GLUCOSE [id number] 06:08:00* Test Item Value Reference Range Interpretation Comments POC-GLUCOSE METER (BEAKER) (test code = 1538) 127 mg/dL 70-[address] [facility] [address] [place] [address] [id number] 06:06:00* Test Item Value Reference Range Interpretation Comments PARTIAL THROMBOPLASTIN TIME (BEAKER) (test code = 760) 27.4 seconds 22.5-36.0 PROTHROMBIN TIME/[id number] 06:05:00* Test Item Value Reference Range Interpretation [...] pat ients with mechanical heart valves.HEMOGLOBIN AND [id number] 00:04:00 * Test Item Value Reference Range Interpretation Comments HEMOGLOBIN (BEAKER) (test code = 410) 8.3 GM/DL 13.7-17.5 L HEMATOCRIT (BEAKER) (test code = 411) 25.4 % 40.1-51.0 L POCT-GLUCOSE [id number] 00:02:00* Test Item Value Reference Range Interpretation Comments POC-GLUCOSE METER (BEAKER) (test code = 1538) 140 mg/dL 70-[address] [facility] [address] [facility] [address] POCT-GLUCOSE [id number] 17:41:00* Test Item Value Reference Range Interpretation Comments POC-GLUCOSE METER (BEAKER) (test code = 1538) 155 mg/dL 70-[address] [facility] [address] [facility] [address] HEMOGLOBIN AND [id number] 16:00:00* Test Item Value Reference Range Interpretation Comments HEMOGLOBIN (BEAKER) (test code = 410) 8.2 GM/DL 13.7-17.5 L HEMATOCRIT (BEAKER) (test code = 411) 25.5 % 40.1-51.0 L BLOOD GAS, [id number] 15:50:00* Test Item Value Reference Range Interpretation [...] 30.0 % RAD, CHEST, 1 VIEW, NON [id number] 14:58:00Reason for exam:->Pulmonary edema evaluationShould this be performed at the bedside?->YesFINAL REPORT AP chest HISTORY: Pulmonary edema. COMPARISON: 06/28/2018. IMPRESSION: Tracheostomy tube and feeding tube present. Hypoinflation. Mild interstitial edema, increased from previous. No effusion or pneumothorax. Signed: Eric Andrade MDReport Verified Date/Time: 06/29/2018 14:58:10 Reading Location: [address] Transitional Reading Room W/PLT COUNT & [...] Received comment: User comments: Slide comments: POCT-GLUCOSE [id number] 12:20:00* Test Item Value Reference Range Interpretation Comments POC-GLUCOSE METER (BEAKER) (test code = 1538) 154 mg/dL 70-110 H TESTED AT [address] [address] [id number] 06:44:00* Test Item Value Reference Range Interpretation Comments PARTIAL THROMBOPLASTIN TIME (BEAKER) (test code = 760) 40.7 seconds 22.5-36.0 H PROTHROMBIN TIME/[id number] 06:43:00* Test Item Value Reference Range Interpretation Comments PROTIME (BEAKER) (test code = 759) 16.8 seconds 11.7-14.7 H INR (BEAKER) (test code = 370) 1.4 <=5.9 RECOMMENDED COUMADIN/WARFARIN INR THERAPY RANGESSTANDARD DOSE: 2.0 - 3.0 Inclu herb: PROPHYLAXIS for venous thrombosis, systemic embolization; TREATMENT for giulia ous thrombosis and/or pulmonary embolus.HIGH RISK: Target INR is 2.5-3.5 for pat ients with mechanical heart valves.POCT-GLUCOSE [id number] 06:07:00* Test Item Value Reference Range Interpretation Comments POC-GLUCOSE METER (BEAKER) (test code = 1538) 177 mg/dL 70-[address] [facility] [address] [facility] [address] [id number] 04:04:00* Test Item Value Reference Range Interpretation Comments MAGNESIUM (BEAKER) (test code = 627) 2.0 mg/dL 1.6-2.6 Specimen slightly hemolyzed BASIC METABOLIC [id number] 04:04:00* Test Item Value Reference Range Interpretation [...] FOR DIALYSIS PATIENTS. Specimen markedly ictericHEPATIC FUNCTION [id number] 04:04:00* Test Item Value Reference Range Interpretation [...] Specimen slightly hemolyzed Specimen markedly ictericHEMOGLOBIN AND [id number] 01:37:00* Test Item Value Reference Range Interpretation Comments HEMOGLOBIN (BEAKER) (test code = 410) 7.7 GM/DL 13.7-17.5 L HEMATOCRIT (BEAKER) (test code = 411) 23.9 % 40.1-51.0 L POCT-GLUCOSE [id number] 00:12:00* Test Item Value Reference Range Interpretation Comments POC-GLUCOSE METER (BEAKER) (test code = 1538) 158 mg/dL 70-110 H TESTED AT [address] [address] SODIUM, RANDOM [id number] 20:36:00* Test Item Value Reference Range Interpretation Comments SODIUM URINE (BEAKER) (test code = 243) < meq/L Reference Range: No NormalsPOCT-GLUCOSE [id number] 20:24:00* Test Item Value Reference Range Interpretation Comments POC-GLUCOSE METER (BEAKER) (test code = 1538) 169 mg/dL 70-110 H TESTED AT [address] [address] HEMOGLOBIN AND [id number] 20:24:00* Test Item Value Reference Range Interpretation Comments HEMOGLOBIN (BEAKER) (test code = 410) 6.9 GM/DL 13.7-17.5 L HEMATOCRIT (BEAKER) (test code = 411) 21.1 % 40.1-51.0 L HEMOGLOBIN AND [id number] 18:35:00* Test Item Value Reference Range Interpretation Comments HEMOGLOBIN (BEAKER) (test code = 410) 6.7 GM/DL 13.7-17.5 L HEMATOCRIT (BEAKER) (test code = 411) 20.7 % 40.1-51.0 L YARI ANTIGEN WITH REFLEX TO [id number] 18:29:00* Test Item Value Reference Range Interpretation Comments YARI ANTIGEN (BEAKER) (test code = 1782) Positive YARI ANTIGEN [id number] 18:29:00* Test Item Value Reference Range Interpretation Comments YARI ANTIGEN TITER (BEAKER) (test code = 737) :2 POCT-GLUCOSE [id number] 17:43:00* Test Item Value Reference Range Interpretation Comments POC-GLUCOSE METER (BEAKER) (test code = 1538) 108 mg/dL 70-[address] [facility] [address] [facility] [address] POCT-GLUCOSE [id number] 12:27:00* Test Item Value Reference Range Interpretation Comments POC-GLUCOSE METER (BEAKER) (test code = 1538) 152 mg/dL 70-110 H TESTED AT [place] [id number] [facility] [address] CBC W/PLT COUNT & AUTO [id number] 12:16:00* Test Item Value Reference Range Interpretation [...] 40.1-51.0 L RAD, CHEST, 1 VIEW, NON [id number] 09:28:00Reason for exam:->Pulmonary edema evaluationShould this be [...] MDReport Verified Date/Time: 06/28/2018 09:28:59 Reading Location: [facility] Radiology Reading Room - GLUCOSE [id number] 06:13:00* Test Item Value Reference Range Interpretation Comments POC-GLUCOSE METER (BEAKER) (test code = 1538) 123 mg/dL 70-[address] [facility] [address] [facility] [address] BASIC METABOLIC [id number] 05:57:00* Test Item Value Reference Range Interpretation [...] NOT APPLICABLE FOR DIALYSIS PATIENTS. Specimen markedly [id number] 05:56:00* Test Item Value Reference Range Interpretation Comments MAGNESIUM (BEAKER) (test code = 627) 2.3 mg/dL 1.6-2.6 HEPATIC FUNCTION [id number] 05:56:00* Test Item Value Reference Range Interpretation [...] 347) 180 U/L 6-55 H Specimen markedly [id number] 05:43:00* Test Item Value Reference Range Interpretation Comments PARTIAL THROMBOPLASTIN TIME (BEAKER) (test code = 760) 45.3 seconds 22.5-36.0 H PROTHROMBIN TIME/[id number] 05:42:00* Test Item Value Reference Range Interpretation Comments PROTIME (BEAKER) (test code = 759) 17.5 seconds 11.7-14.7 H INR (BEAKER) (test code = 370) 1.5 <=5.9 RECOMMENDED COUMADIN/WARFARIN INR THERAPY RANGESSTANDARD DOSE: 2.0 - 3.0 Inclu herb: PROPHYLAXIS for venous thrombosis, systemic embolization; TREATMENT for giulia ous thrombosis and/or pulmonary embolus.HIGH RISK: Target INR is 2.5-3.5 for pat ients with mechanical heart valves.POCT-GLUCOSE [id number] 00:23:00* Test Item Value Reference Range Interpretation Comments POC-GLUCOSE METER (BEAKER) (test code = 1538) 183 mg/dL 70-[address] [facility] [address] [facility] [address] HEMOGLOBIN AND [id number] 20:24:00* Test Item Value Reference Range Interpretation Comments HEMOGLOBIN (BEAKER) (test code = 410) 7.4 GM/DL 13.7-17.5 L HEMATOCRIT (BEAKER) (test code = 411) 22.3 % 40.1-51.0 L POCT-GLUCOSE [id number] 18:08:00* Test Item Value Reference Range Interpretation Comments POC-GLUCOSE METER ([facility]) (test code = 1538) 171 mg/dL 70-[address] 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 Samm Arenas, [facility] [facility] H[facility], who concurs with the diagnosis. [id number] Cecal ulcer biops yThe specimen is received in a formalin-filled container and labeled with the p atient's information and labeled "cecal ulcer biopsy" and consists of a 0.2 cm f ragment of guajardo tissue, submitted entirely A1. CG/pl Performed.The following carlos tional immunohistochemical stains, were evaluated on the biopsy with appropriate controls:CD3, CD5, CD10, CD20, BCL-2, BCL-6, CyclinD1, Ki-67, [place], Lambda, PA X-5.CD3, CD5 and BCL-2 have similar patterns and highlight T lymphocytes. CD20 a nd PAX-5 highlights increased large, atypical appearing B cells. Mukwonago and Santana da demonstrate polytypic plasma cells. [...] KI-67.Immunohistochemistry technical te sting was performed at [facility], Pathology Laboratory wh ere it [...] and its performance c haracteristics determined by [facility], Pathology Laboratory. It has not been cleared [...] to perform high complexity clinic al laboratory testing.[facility], Department of Pathology, [address] [place] [address], [facility], Department of [facility]ology, [address] [place] [address], [facility], [facility] of [facility], [address] [facility], [place] [address], b-TYPE NATRIURETIC FACTOR (BNP) 2018-06-27 13:44:00* Test Item Value Reference Range Interpretation Comments B-TYPE NATRIURETIC PEPTIDE (BEAKER) (test code = 700) 179 pg/mL 0-100 H HEMOGLOBIN AND [id number] 13:18:00* Test Item Value Reference Range Interpretation Comments HEMOGLOBIN (BEAKER) (test code = 410) 7.9 GM/DL 13.7-17.5 L HEMATOCRIT (BEAKER) (test code = 411) 23.6 % 40.1-51.0 L CBC W/PLT COUNT & AUTO [id number] 13:10:00* Test Item Value Reference Range Interpretation [...] MDReport Verified Date/Time: 06/27/2018 12:39:10 Reading Location: [facility] Radiology Reading Room -GLUCOSE [id number] 11:38:00 * Test Item Value Reference Range Interpretation Comments POC-GLUCOSE METER (BEAKER) (test code = 1538) 181 mg/dL 70-110 H TESTED AT [place] [id number] [facility] [address] HEMOGLOBIN AND [id number] 09:34:00* Test Item Value Reference Range Interpretation Comments HEMOGLOBIN (BEAKER) (test code = 410) 8.1 GM/DL 13.7-17.5 L HEMATOCRIT (BEAKER) (test code = 411) 24.9 % 40.1-51.0 L POCT-GLUCOSE [id number] 06:28:00* Test Item Value Reference Range Interpretation Comments POC-GLUCOSE METER (BEAKER) (test code = 1538) 161 mg/dL 70-110 H TESTED AT [place] [id number] [facility] [address] BASIC METABOLIC [id number] 06:04:00* Test Item Value Reference Range Interpretation [...] NOT APPLICABLE FOR DIALYSIS PATIENTS. Specimen markedly [id number] 06:00:00* Test Item Value Reference Range Interpretation Comments MAGNESIUM (BEAKER) (test code = 627) 1.9 mg/dL 1.6-2.6 HEPATIC FUNCTION [id number] 06:00:00* Test Item Value Reference Range Interpretation [...] 347) 170 U/L 6-55 H Specimen markedly [id number] 05:56:00* Test Item Value Reference Range Interpretation Comments PARTIAL THROMBOPLASTIN TIME (BEAKER) (test code = 760) 41.4 seconds 22.5-36.0 H PROTHROMBIN TIME/[id number] 05:55:00* Test Item Value Reference Range Interpretation [...] pat ients with mechanical heart valves.HEMOGLOBIN AND [id number] 05:33:00 * Test Item Value Reference Range Interpretation Comments HEMOGLOBIN (BEAKER) (test code = 410) 7.5 GM/DL 13.7-17.5 L HEMATOCRIT (BEAKER) (test code = 411) 23.3 % 40.1-51.0 L POCT-GLUCOSE [id number] 00:28:00* Test Item Value Reference Range Interpretation Comments POC-GLUCOSE METER (BEAKER) (test code = 1538) 153 mg/dL 70-110 H TESTED AT [address] [address] HEMOGLOBIN AND [id number] 00:15:00* Test Item Value Reference Range Interpretation Comments HEMOGLOBIN (BEAKER) (test code = 410) 6.8 GM/DL 13.7-17.5 L HEMATOCRIT (BEAKER) (test code = 411) 20.6 % 40.1-51.0 L HEMOGLOBIN AND [id number] 20:31:00* Test Item Value Reference Range Interpretation Comments HEMOGLOBIN (BEAKER) (test code = 410) 7.4 GM/DL 13.7-17.5 L HEMATOCRIT (BEAKER) (test code = 411) 22.5 % 40.1-51.0 L HEMOGLOBIN AND [id number] 18:54:00* Test Item Value Reference Range Interpretation Comments HEMOGLOBIN (BEAKER) (test code = 410) 7.4 GM/DL 13.7-17.5 L HEMATOCRIT (BEAKER) (test code = 411) 22.7 % 40.1-51.0 L POCT-GLUCOSE [id number] 18:17:00* Test Item Value Reference Range Interpretation Comments POC-GLUCOSE METER (BEAKER) (test code = 1538) 133 mg/dL 70-[address] [facility] [address] [facility] [address] [id number] 16:32:00* Test Item Value Reference Range Interpretation Comments FIBRINOGEN LEVEL (BEAKER) (test code = 658) 331 mg/dl 225-434 PT/[id number] 15:10:00* Test Item Value Reference Range Interpretation [...] pat ients with mechanical heart valves.HEMOGLOBIN AND [id number] 14:55:00 * Test Item Value Reference Range Interpretation Comments HEMOGLOBIN (BEAKER) (test code = 410) 7.7 GM/DL 13.7-17.5 L HEMATOCRIT (BEAKER) (test code = 411) 24.0 % 40.1-51.0 L CBC W/PLT COUNT & AUTO [id number] 14:09:00* Test Item Value Reference Range Interpretation [...] Received comment: User comments: Slide comments: BLOOD [id number] 14:03:00* Test Item Value Reference Range Interpretation Comments CULTURE (BEAKER) (test code = 1095) No growth in 5 days BLOOD [id number] 14:03:00* Test Item Value Reference Range Interpretation Comments CULTURE (BEAKER) (test code = 1095) No growth in 5 days POCT-GLUCOSE [id number] 11:51:00* Test Item Value Reference Range Interpretation Comments POC-GLUCOSE METER (BEAKER) (test code = 1538) 176 mg/dL 70-[address] [facility] [address] [facility] [address] HEMOGLOBIN AND [id number] 08:23:00* Test Item Value Reference Range Interpretation Comments HEMOGLOBIN (BEAKER) (test code = 410) 6.2 GM/DL 13.7-17.5 L HEMATOCRIT (BEAKER) (test code = 411) 18.9 % 40.1-51.0 L POCT-GLUCOSE [id number] 07:35:00* Test Item Value Reference Range Interpretation Comments POC-GLUCOSE METER (BEAKER) (test code = 1538) 172 mg/dL 70-[address] [facility] [address] [facility] [address] RAD, CHEST, 1 VIEW, NON [id number] 07:26:00Reason for exam:->Pulmonary edema evaluationShould this be [...] MDReport Verified Date/Time: 06/26/2018 07:26:15 Reading Location: [facility] Radiology Reading Room [id number] 05:04:00* Test Item Value Reference Range Interpretation Comments MAGNESIUM (BEAKER) (test code = 627) 1.9 mg/dL 1.6-2.6 BASIC METABOLIC [id number] 05:04:00* Test Item Value Reference Range Interpretation [...] FOR DIALYSIS PATIENTS. Specimen markedly ictericHEPATIC FUNCTION [id number] 05:04:00* Test Item Value Reference Range Interpretation [...] 347) 202 U/L 6-55 H Specimen markedly [id number] 04:54:00* Test Item Value Reference Range Interpretation Comments PARTIAL THROMBOPLASTIN TIME (BEAKER) (test code = 760) 39.3 seconds 22.5-36.0 H PROTHROMBIN TIME/[id number] 04:53:00* Test Item Value Reference Range Interpretation [...] pat ients with mechanical heart valves.HEMOGLOBIN AND [id number] 04:48:00 * Test Item Value Reference Range Interpretation Comments HEMOGLOBIN (BEAKER) (test code = 410) 7.2 GM/DL 13.7-17.5 L HEMATOCRIT (BEAKER) (test code = 411) 22.4 % 40.1-51.0 L HEMOGLOBIN AND [id number] 00:55:00* Test Item Value Reference Range Interpretation Comments HEMOGLOBIN (BEAKER) (test code = 410) 7.9 GM/DL 13.7-17.5 L HEMATOCRIT (BEAKER) (test code = 411) 24.4 % 40.1-51.0 L POCT-GLUCOSE [id number] 00:11:00* Test Item Value Reference Range Interpretation Comments POC-GLUCOSE METER (BEAKER) (test code = 1538) 130 mg/dL 70-[address] [facility] [address] [facility] [address] HEMOGLOBIN AND [id number] 21:55:00* Test Item Value Reference Range Interpretation Comments HEMOGLOBIN (BEAKER) (test code = 410) 7.8 GM/DL 13.7-17.5 L HEMATOCRIT (BEAKER) (test code = 411) 24.7 % 40.1-51.0 L HEMOGLOBIN AND [id number] 19:15:00* Test Item Value Reference Range Interpretation Comments HEMOGLOBIN (BEAKER) (test code = 410) 8.2 GM/DL 13.7-17.5 L HEMATOCRIT (BEAKER) (test code = 411) 25.5 % 40.1-51.0 L POCT-GLUCOSE [id number] 18:49:00* Test Item Value Reference Range Interpretation Comments POC-GLUCOSE METER (BEAKER) (test code = 1538) 159 mg/dL 70-[address] [facility] [address] [facility] [address] POCT-GLUCOSE [id number] 17:29:00* Test Item Value Reference Range Interpretation Comments POC-GLUCOSE METER (BEAKER) (test code = 1538) 104 mg/dL 70-[address] [facility] [address] [facility] [address] CT, CTA [id number] 14:14:00FINAL REPORT TECHNIQUE: CTA of the abdomen [...] Verified Date/Time: 06/25/2018 14:14:40 Jovani manjarrez Location: [address] Body Reading Room GLOBIN AND [id number] 12:47:00* Test Item Value Reference Range Interpretation Comments HEMOGLOBIN (BEAKER) (test code = 410) 7.9 GM/DL 13.7-17.5 L HEMATOCRIT (BEAKER) (test code = 411) 24.6 % 40.1-51.0 L POCT-GLUCOSE [id number] 12:19:00* Test Item Value Reference Range Interpretation Comments POC-GLUCOSE METER (BEAKER) (test code = 1538) 161 mg/dL 70-[address] [facility] [address] [place] [address] CBC W/PLT COUNT & AUTO [id number] 10:47:00* Test Item Value Reference Range Interpretation [...] 40.1-51.0 L RAD, CHEST, 1 VIEW, NON [id number] 07:29:00Reason for exam:->Pulmonary edema evaluationShould this be [...] MDReport Verified Date/Time: 06/25/2018 07:29:59 Reading Location: [facility] Radiology Reading Room [facility] signed by: ANDREW SLOAN M.D. on 06/25/2018 07:29 AM POCT-GLUCOSE METER 2018-06-25 06:28:00* Test Item Value Reference Range Interpretation Comments POC-GLUCOSE METER (BEAKER) (test code = 1538) 174 mg/dL 70-110 H TESTED AT [address] [address] [id number] 05:46:00* Test Item Value Reference Range Interpretation Comments PARTIAL THROMBOPLASTIN TIME (BEAKER) (test code = 760) 52.2 seconds 22.5-36.0 H PROTHROMBIN TIME/[id number] 05:44:00* Test Item Value Reference Range Interpretation Comments PROTIME (BEAKER) (test code = 759) 18.3 seconds 11.7-14.7 H INR (BEAKER) (test code = 370) 1.6 <=5.9 RECOMMENDED COUMADIN/WARFARIN INR THERAPY RANGESSTANDARD DOSE: 2.0 - 3.0 Inclu herb: PROPHYLAXIS for venous thrombosis, systemic embolization; TREATMENT for giulia ous thrombosis and/or pulmonary embolus.HIGH RISK: Target INR is 2.5-3.5 for pat ients with mechanical heart valves.[id number] 05:41:00* Test Item Value Reference Range Interpretation Comments MAGNESIUM (BEAKER) (test code = 627) 2.2 mg/dL 1.6-2.6 BASIC METABOLIC [id number] 05:41:00* Test Item Value Reference Range Interpretation [...] FOR DIALYSIS PATIENTS. Specimen markedly ictericHEPATIC FUNCTION [id number] 05:41:00* Test Item Value Reference Range Interpretation [...] 24 U/L 29-20 0 L BLOOD GAS, [id number] 05:35:00* Test Item Value Reference Range Interpretation [...] code = 1819) 40.0 % LACTIC ACID, [id number] 05:32:00* Test Item Value Reference Range Interpretation Comments LACTATE BLOOD ARTERIAL (2) (BEAKER) (test code = 2874) 0.5 mmol/L 0.5-2.2 Specimen markedly ictericPOCT-GLUCOSE [id number] 00:35:00* Test Item Value Reference Range Interpretation Comments POC-GLUCOSE METER (BEAKER) (test code = 1538) 140 mg/dL 70-110 H TESTED AT [address] [address] HEMOGLOBIN AND [id number] 00:32:00* Test Item Value Reference Range Interpretation Comments HEMOGLOBIN (BEAKER) (test code = 410) 8.3 GM/DL 13.7-17.5 L HEMATOCRIT (BEAKER) (test code = 411) 25.6 % 40.1-51.0 L POCT-GLUCOSE [id number] 18:59:00* Test Item Value Reference Range Interpretation Comments POC-GLUCOSE METER (BEAKER) (test code = 1538) 124 mg/dL 70-110 H TESTED AT [address] [address] HEMOGLOBIN AND [id number] 18:36:00* Test Item Value Reference Range Interpretation Comments HEMOGLOBIN (BEAKER) (test code = 410) 8.1 GM/DL 13.7-17.5 L HEMATOCRIT (BEAKER) (test code = 411) 25.1 % 40.1-51.0 L POCT-GLUCOSE [id number] 12:21:00* Test Item Value Reference Range Interpretation Comments POC-GLUCOSE METER (BEAKER) (test code = 1538) 133 mg/dL 70-[address] [facility] [address] [facility] [address] RAD, CHEST, 1 VIEW, NON [id number] 09:38:00Reason for exam:->Pulmonary edema evaluationShould this be performed at the bedside?->YesFINAL REPORT Comparison: 06/23/2018 TECHNIQUE: Single view of the chest FINDINGS: Lung volumes are low. There is mild vascular congestion. No gross new lung parenchymal changes. Support lines and tubes are stable. Signed: Roberth Camp MDReport Verified Date/Time: 06/24/2018 09:38:51 Reading Location: [facility] Radiology Reading Room W/PLT COUNT & AUTO [id number] 09:00:00* Test Item Value Reference Range Interpretation [...] Received comment: User comments: Slide comments: POCT-GLUCOSE [id number] 06:48:00* Test Item Value Reference Range Interpretation Comments POC-GLUCOSE METER (BEAKER) (test code = 1538) 122 mg/dL 70-[address] [facility] [address] [facility] [address] POCT-GLUCOSE [id number] 05:09:00* Test Item Value Reference Range Interpretation Comments POC-GLUCOSE METER (BEAKER) (test code = 1538) 138 mg/dL 70-[address] [facility] [address] [facility] [address] BLOOD GAS, [id number] 04:42:00* Test Item Value Reference Range Interpretation [...] (BEAKER) (test code = 1819) 40.0 % [id number] 04:32:00* Test Item Value Reference Range Interpretation Comments MAGNESIUM (BEAKER) (test code = 627) 2.0 mg/dL 1.6-2.6 BASIC METABOLIC [id number] 04:32:00* Test Item Value Reference Range Interpretation [...] FOR DIALYSIS PATIENTS. Specimen markedly ictericHEPATIC FUNCTION [id number] 04:32:00* Test Item Value Reference Range Interpretation [...] U/L 6-55 H Specimen markedly ictericLACTIC ACID, [id number] 04:22:00* Test Item Value Reference Range Interpretation Comments LACTATE BLOOD ARTERIAL (2) (BEAKER) (test code = 2874) 0.6 mmol/L 0.5-2.2 Specimen moderately [id number] 04:17:00* Test Item Value Reference Range Interpretation Comments PARTIAL THROMBOPLASTIN TIME (BEAKER) (test code = 760) 50.9 seconds 22.5-36.0 H PROTHROMBIN TIME/[id number] 04:16:00* Test Item Value Reference Range Interpretation Comments PROTIME (BEAKER) (test code = 759) 18.0 seconds 11.7-14.7 H INR (BEAKER) (test code = 370) 1.6 <=5.9 RECOMMENDED COUMADIN/WARFARIN INR THERAPY RANGESSTANDARD DOSE: 2.0 - 3.0 Inclu herb: PROPHYLAXIS for venous thrombosis, systemic embolization; TREATMENT for giulia ous thrombosis and/or pulmonary embolus.HIGH RISK: Target INR is 2.5-3.5 for pat ients with mechanical heart valves.POCT-GLUCOSE [id number] 00:29:00* Test Item Value Reference Range Interpretation Comments POC-GLUCOSE METER (BEAKER) (test code = 1538) 113 mg/dL 70-[address] [facility] [address] [facility] [address] POCT-GLUCOSE [id number] 18:51:00* Test Item Value Reference Range Interpretation Comments POC-GLUCOSE METER (BEAKER) (test code = 1538) 108 mg/dL 70-110 TESTED AT [place] [id number] [facility] [address] (CELLAVISION MANUAL DIFF)2018-06-23 16:53:00* Test Item Value [...] Slide comments: CBC W/PLT COUNT & AUTO [id number] 16:33:00* Test Item Value Reference Range Interpretation [...] 0-1 H CBC W/PLT COUNT & AUTO [id number] 13:52:00* Test Item Value Reference Range Interpretation [...] Received comment: User comments: Slide comments: POCT-GLUCOSE [id number] 11:56:00* Test Item Value Reference Range Interpretation Comments POC-GLUCOSE METER (BEAKER) (test code = 1538) 115 mg/dL 70-[address] [facility] [address] [facility] [address] [id number] 07:07:00* Test Item Value Reference Range Interpretation Comments MAGNESIUM (BEAKER) (test code = 627) 1.9 mg/dL 1.6-2.6 BASIC METABOLIC [id number] 07:07:00* Test Item Value Reference Range Interpretation [...] FOR DIALYSIS PATIENTS. Specimen markedly ictericHEPATIC FUNCTION [id number] 07:07:00* Test Item Value Reference Range Interpretation [...] U/L 6-55 H Specimen markedly ictericHEMOGLOBIN AND [id number] 06:51:00* Test Item Value Reference Range Interpretation Comments HEMOGLOBIN (BEAKER) (test code = 410) 8.2 GM/DL 13.7-17.5 L HEMATOCRIT (BEAKER) (test code = 411) 25.0 % 40.1-51.0 L POCT-GLUCOSE [id number] 06:44:00* Test Item Value Reference Range Interpretation Comments POC-GLUCOSE METER (BEAKER) (test code = 1538) 121 mg/dL 70-[address] [facility] [address] [facility] [address] LACTIC ACID, [id number] 06:44:00* Test Item Value Reference Range Interpretation Comments LACTATE BLOOD ARTERIAL (2) (BEAKER) (test code = 2874) 0.7 mmol/L 0.5-2.2 Specimen markedly [id number] 06:40:00* Test Item Value Reference Range Interpretation Comments PARTIAL THROMBOPLASTIN TIME (BEAKER) (test code = 760) 44.7 seconds 22.5-36.0 H PROTHROMBIN TIME/[id number] 06:39:00* Test Item Value Reference Range Interpretation [...] pat ients with mechanical heart valves.BLOOD GAS, [id number] 06:36:00* Test Item Value Reference Range Interpretation [...] 40.0 % RAD, CHEST, 1 VIEW, NON [id number] 04:52:00Reason for exam:->Pulmonary edema evaluationShould this be [...] Avendaño Verified Date/Time: 06/23/2018 04:52:15 Reading Location: [address] Neuro Reading Room U/S, ABDOMINAL, [id number] 03:15:00Abdomen limited area? Add comment if clarification [...] MDReport Verified Date/Time: 06/23/2018 03:15:49 Reading Location: [address] Neuro Reading Room GLOBIN AND [id number] 01:05:00* Test Item Value Reference Range Interpretation Comments HEMOGLOBIN (BEAKER) (test code = 410) 8.4 GM/DL 13.7-17.5 L HEMATOCRIT (BEAKER) (test code = 411) 25.9 % 40.1-51.0 L POCT-GLUCOSE [id number] 00:43:00* Test Item Value Reference Range Interpretation Comments POC-GLUCOSE METER (BEAKER) (test code = 1538) 180 mg/dL 70-[address] [facility] [address] [facility] [address] HEMOGLOBIN AND [id number] 21:03:00* Test Item Value Reference Range Interpretation Comments HEMOGLOBIN (BEAKER) (test code = 410) 8.6 GM/DL 13.7-17.5 L HEMATOCRIT (BEAKER) (test code = 411) 25.8 % 40.1-51.0 L POCT-GLUCOSE [id number] 18:20:00* Test Item Value Reference Range Interpretation Comments POC-GLUCOSE METER (BEAKER) (test code = 1538) 265 mg/dL 70-[address] [facility] [address] [facility] [address] HEMOGLOBIN AND [id number] 12:41:00* Test Item Value Reference Range Interpretation Comments HEMOGLOBIN (BEAKER) (test code = 410) 7.6 GM/DL 13.7-17.5 L HEMATOCRIT (BEAKER) (test code = 411) 23.4 % 40.1-51.0 L POCT-GLUCOSE [id number] 12:29:00* Test Item Value Reference Range Interpretation Comments POC-GLUCOSE METER (BEAKER) (test code = 1538) 150 mg/dL 70-110 H TESTED AT [place] [id number] [facility] [address] RAD, CHEST, 1 VIEW, NON [id number] 08:40:00Reason for exam:->Pulmonary edema evaluationShould this be [...] [place] Verified Date/Time: 06/22/2018 08:40:31 Reading Location: [facility] C0[facility] Transitional Reading Room - GLUCOSE [id number] 06:33:00* Test Item Value Reference Range Interpretation Comments POC-GLUCOSE METER (BEAKER) (test code = 1538) 159 mg/dL 70-[address] [facility] [address] [facility] [address] LACTIC ACID, [id number] 04:16:00* Test Item Value Reference Range Interpretation Comments LACTATE BLOOD ARTERIAL (2) (BEAKER) (test code = 2874) 0.5 mmol/L 0.5-2.2 Specimen markedly ictericBASIC METABOLIC [id number] 04:12:00* Test Item Value Reference Range Interpretation [...] APPLICABLE FOR DIALYSIS PATIENTS. Specimen markedly ictericCALCIUM, [id number] 04:10:00* Test Item Value Reference Range Interpretation Comments CALCIUM IONIZED (BEAKER) (test code = 698) 1.28 mmol/L 1.12-1.27 H PH, BLOOD (BEAKER) (test code = 1810) 7.41 Check serum Ionized Calcium level after 4 hours after IV Calcium replacement. BLOOD GAS, [id number] 04:05:00* Test Item Value Reference Range Interpretation [...] 40.0 % CBC W/PLT COUNT & AUTO [id number] 04:02:00* Test Item Value Reference Range Interpretation [...] code = 2801) 4 % 0-1 H [id number] 03:56:00* Test Item Value Reference Range Interpretation Comments MAGNESIUM (BEAKER) (test code = 627) 2.0 mg/dL 1.6-2.6 HEPATIC FUNCTION [id number] 03:56:00* Test Item Value Reference Range Interpretation [...] 347) 136 U/L 6-55 H Specimen markedly [id number] 03:53:00* Test Item Value Reference Range Interpretation Comments PARTIAL THROMBOPLASTIN TIME (BEAKER) (test code = 760) 40.4 seconds 22.5-36.0 H PROTHROMBIN TIME/[id number] 03:52:00* Test Item Value Reference Range Interpretation [...] pat ients with mechanical heart valves.HEMOGLOBIN AND [id number] 03:41:00 * Test Item Value Reference Range Interpretation Comments HEMOGLOBIN (BEAKER) (test code = 410) 8.1 GM/DL 13.7-17.5 L HEMATOCRIT (BEAKER) (test code = 411) 24.4 % 40.1-51.0 L BLOOD [id number] 01:25:00* Test Item Value Reference Range Interpretation Comments CULTURE (BEAKER) (test code = 1095) No growth in 5 days BLOOD [id number] 01:25:00* Test Item Value Reference Range Interpretation Comments CULTURE (BEAKER) (test code = 1095) No growth in 5 days HEMOGLOBIN AND [id number] 00:32:00* Test Item Value Reference Range Interpretation Comments HEMOGLOBIN (BEAKER) (test code = 410) 9.1 GM/DL 13.7-17.5 L HEMATOCRIT (BEAKER) (test code = 411) 27.2 % 40.1-51.0 L POCT-GLUCOSE [id number] 00:18:00* Test Item Value Reference Range Interpretation Comments POC-GLUCOSE METER (BEAKER) (test code = 1538) 189 mg/dL 70-[address] [facility] [address] [facility] [address] ANG, VISCERAL [id number] 22:13:00FINAL REPORT Mesenteric Arteriography Clinical History:GI bleed [...] inch guide wire was advanced. A 5 [place] sheath was util ized. A 5 citizen [place] catheter was placed selectively into the [...] Rogel Verified Date/Time: 06/21/2018 22:13:37 Reading Location: [facility] P[facility] Body Reading Room Electronically signed by: KAI ROGEL M.D. on 05/28 10:13 PM RAD, ABDOMEN/KUB, 1 VIEW [id number] 20:57:00Reason for exam:-> abdominal distention sp coilsFINAL [...] MDReport Verified Date/Time: 06/21/2018 20:57:09 Reading Location: [facility] [id number] Consult Reading Room W/PLT COUNT & AUTO [id number] 18:35:00* Test Item Value Reference Range Interpretation [...] Received comment: User comments: Slide comments: POCT-GLUCOSE [id number] 17:53:00* Test Item Value Reference Range Interpretation Comments POC-GLUCOSE METER (BEAKER) (test code = 1538) 212 mg/dL 70-[address] [facility] [address] [facility] [address] BASIC METABOLIC [id number] 17:52:00* Test Item Value Reference Range Interpretation [...] FOR DIALYSIS PATIENTS. Specimen markedly ictericLACTIC ACID, [id number] 17:45:00* Test Item Value Reference Range Interpretation Comments LACTATE BLOOD ARTERIAL (2) (BEAKER) (test code = 2874) 0.6 mmol/L 0.5-2.2 Specimen markedly ictericHEMOGLOBIN AND [id number] 17:32:00* Test Item Value Reference Range Interpretation Comments HEMOGLOBIN (BEAKER) (test code = 410) 7.4 GM/DL 13.7-17.5 L HEMATOCRIT (BEAKER) (test code = 411) 22.4 % 40.1-51.0 L BLOOD GAS, [id number] 17:25:00* Test Item Value Reference Range Interpretation [...] 0.0-5.0 H RAD, CHEST, 1 VIEW, NON [id number] 14:14:00Reason for exam:->line placementShould this be performed [...] MDReport Verified Date/Time: 06/21/2018 14:14:23 Reading Location: [facility] C013W Consult Reading Room GLOBIN AND [id number] 14:12:00* Test Item Value Reference Range Interpretation Comments HEMOGLOBIN (BEAKER) (test code = 410) 6.3 GM/DL 13.7-17.5 L HEMATOCRIT (BEAKER) (test code = 411) 19.7 % 40.1-51.0 L PROTHROMBIN TIME/[id number] 14:10:00* Test Item Value Reference Range Interpretation Comments PROTIME (BEAKER) (test code = 759) 18.5 seconds 11.7-14.7 H INR (BEAKER) (test code = 370) 1.5 <=5.9 RECOMMENDED COUMADIN/WARFARIN INR THERAPY RANGESSTANDARD DOSE: 2.0 - 3.0 Inclu herb: PROPHYLAXIS for venous thrombosis, systemic embolization; TREATMENT for giulia ous thrombosis and/or pulmonary embolus.HIGH RISK: Target INR is 2.5-3.5 for pat ients with mechanical heart valves.[id number] 14:10:00* Test Item Value Reference Range Interpretation Comments FIBRINOGEN LEVEL (BEAKER) (test code = 658) 405 mg/dl 225-434 [id number] 14:10:00* Test Item Value Reference Range Interpretation Comments PARTIAL THROMBOPLASTIN TIME (BEAKER) (test code = 760) 43.9 seconds 22.5-36.0 H LACTIC ACID, [id number] 13:57:00* Test Item Value Reference Range Interpretation Comments LACTATE BLOOD ARTERIAL (2) (BEAKER) (test code = 2874) 0.8 mmol/L 0.5-2.2 Specimen markedly ictericPLATELET [id number] 13:47:00* Test Item Value Reference Range Interpretation Comments PLATELET COUNT (BEAKER) (test code = 756) 347 K/CU MM 150-450 CALCIUM, [id number] 13:46:00* Test Item Value Reference Range Interpretation Comments CALCIUM IONIZED (BEAKER) (test code = 698) 1.03 mmol/L 1.12-1.27 L PH, BLOOD (BEAKER) (test code = 1810) 7.40 POTASSIUM-STAT [id number] 13:45:00* Test Item Value Reference Range Interpretation Comments POTASSIUM (BEAKER) (test code = 379) 3.3 meq/L 3.6-5.5 L GLUCOSE-STAT [id number] 13:45:00* Test Item Value Reference Range Interpretation Comments GLUCOSE RANDOM (BEAKER) (test code = 652) 213 mg/dL 70-110 H HGB/HCT (H&H) - STAT [id number] 13:45:00* Test Item Value Reference Range Interpretation Comments HEMOGLOBIN (BEAKER) (test code = 410) 6.4 g/dL 13.0-16.8 L HEMATOCRIT (BEAKER) (test code = 411) 19.0 % 40.0-50.0 L BLOOD GAS, [id number] 13:45:00* Test Item Value Reference Range Interpretation [...] code = 1819) 40.0 % SODIUM NA-STAT [id number] 13:44:00* Test Item Value Reference Range Interpretation Comments SODIUM (BEAKER) (test code = 381) 142 meq/L 135-148 [id number] 12:39:00* Test Item Value Reference Range Interpretation Comments PROCALCITONIN (BEAKER) (test code = 3036) 3.47 ng/mL <0.05 H SEPSIS RISK (ng/mL)Low: 0.05-0.50Intermediate: 0.51-2.00High: > =2.01POCT-GLUCOSE [id number] 12:37:00* Test Item Value Reference Range Interpretation Comments POC-GLUCOSE METER (BEAKER) (test code = 1538) 242 mg/dL 70-[address] [facility] [address] [facility] [address] LACTIC ACID, [id number] 12:37:00* Test Item Value Reference Range Interpretation Comments LACTATE BLOOD ARTERIAL (2) (BEAKER) (test code = 2874) 1.0 mmol/L 0.5-2.2 Specimen markedly ictericBLOOD GAS, [id number] 12:23:00* Test Item Value Reference Range Interpretation [...] code = 1819) 40.0 % HEMOGLOBIN AND [id number] 11:40:00* Test Item Value Reference Range Interpretation Comments HEMOGLOBIN (BEAKER) (test code = 410) 7.3 GM/DL 13.7-17.5 L HEMATOCRIT (BEAKER) (test code = 411) 22.6 % 40.1-51.0 L URINALYSIS W/ REFLEX URINE [id number] 11:19:00* Test Item Value Reference Range Interpretation [...] SOURCE(BEAKER) (test code = 2795) OXYGEN SATURATION, [id number] 11:10:00* Test Item Value Reference Range Interpretation Comments O2 SATURATION (MEASURED) (BEAKER) (test code = 1455) 63.5 % POCT-GLUCOSE [id number] 09:37:00* Test Item Value Reference Range Interpretation Comments POC-GLUCOSE METER (BEAKER) (test code = 1538) 258 mg/dL 70-[address] [facility] [address] [facility] [address] CBC W/PLT COUNT & AUTO [id number] 08:40:00* Test Item Value Reference Range Interpretation [...] MDReport Verified Date/Time: 06/21/2018 07:46:59 Reading Location: [facility] Radiology Reading Room TIC FUNCTION [id number] 04:40:00* Test Item Value Reference Range Interpretation [...] U/L 6-55 H Specimen markedly ictericBASIC METABOLIC [id number] 04:40:00* Test Item Value Reference Range Interpretation [...] NOT APPLICABLE FOR DIALYSIS PATIENTS. Specimen markedly [id number] 04:26:00* Test Item Value Reference Range Interpretation Comments MAGNESIUM (BEAKER) (test code = 627) 2.1 mg/dL 1.6-2.6 LACTIC ACID, [id number] 04:17:00* Test Item Value Reference Range Interpretation Comments LACTATE BLOOD ARTERIAL (2) (BEAKER) (test code = 2874) 1.0 mmol/L 0.5-2.2 Specimen markedly [id number] 04:12:00* Test Item Value Reference Range Interpretation Comments PARTIAL THROMBOPLASTIN TIME (BEAKER) (test code = 760) 47.7 seconds 22.5-36.0 H PROTHROMBIN TIME/[id number] 04:11:00* Test Item Value Reference Range Interpretation [...] pat ients with mechanical heart valves.BLOOD GAS, [id number] 03:57:00* Test Item Value Reference Range Interpretation [...] (BEAKER) (test code = 1819) 40.0 % [id number] 01:01:00* Test Item Value Reference Range Interpretation Comments POTASSIUM (BEAKER) (test code = 379) 3.4 meq/L 3.5-5.1 L PRN - repeat glucose levels every 1 hour or as specified by insulin titration or ders until glucose level is less than 450 mg/dLCheck Serum Potassium level 2 roxy rs after oral potassium replacement completed or 30 min after intravenous potass ium replacement.[id number] 01:01:00* Test Item Value Reference Range Interpretation Comments MAGNESIUM (BEAKER) (test code = 627) 2.0 mg/dL 1.6-2.6 PRN - repeat glucose levels every 1 hour or as specified by insulin titration or ders until glucose level is less than 450 mg/dLCheck Serum Potassium level 2 roxy rs after oral potassium replacement completed or 30 min after intravenous potass ium replacement.[id number] 01:01:00* Test Item Value Reference Range Interpretation Comments GLUCOSE RANDOM (BEAKER) (test code = 652) 220 mg/dL 70-105 H PRN - repeat glucose levels every 1 hour or as specified by insulin titration or ders until glucose level is less than 450 mg/dLCheck Serum Potassium level 2 roxy rs after oral potassium replacement completed or 30 min after intravenous potass ium replacement.CALCIUM, [id number] 00:47:00* Test Item Value Reference Range Interpretation Comments CALCIUM IONIZED (BEAKER) (test code = 698) 1.05 mmol/L 1.12-1.27 L PH, BLOOD (BEAKER) (test code = 1810) 7.48 Check serum Ionized Calcium level after 4 hours after IV Calcium replacement. BLOOD GAS, [id number] 21:09:00* Test Item Value Reference Range Interpretation [...] code = 1819) 40.0 % Before ventPOCT-GLUCOSE [id number] 17:55:00* Test Item Value Reference Range Interpretation Comments POC-GLUCOSE METER (BEAKER) (test code = 1538) 254 mg/dL 70-[address] [facility] [address] [facility] [address] BASIC METABOLIC [id number] 17:37:00* Test Item Value Reference Range Interpretation [...] FOR DIALYSIS PATIENTS. Specimen markedly ictericHEMOGLOBIN AND [id number] 17:18:00* Test Item Value Reference Range Interpretation Comments HEMOGLOBIN (BEAKER) (test code = 410) 8.2 GM/DL 13.7-17.5 L HEMATOCRIT (BEAKER) (test code = 411) 24.9 % 40.1-51.0 L CALCIUM, [id number] 17:14:00* Test Item Value Reference Range Interpretation Comments CALCIUM IONIZED (BEAKER) (test code = 698) 1.04 mmol/L 1.12-1.27 L PH, BLOOD (BEAKER) (test code = 1810) 7.49 Check serum Ionized Calcium level after 4 hours after IV Calcium replacement. POCT-GLUCOSE [id number] 17:00:00* Test Item Value Reference Range Interpretation Comments POC-GLUCOSE METER (BEAKER) (test code = 1538) 238 mg/dL 70-[address] [facility] [address] [facility] [address] POCT-GLUCOSE [id number] 11:59:00* Test Item Value Reference Range Interpretation Comments POC-GLUCOSE METER (BEAKER) (test code = 1538) 199 mg/dL 70-[address] [facility] [address] [facility] [address] BASIC METABOLIC [id number] 10:07:00* Test Item Value Reference Range Interpretation [...] FOR DIALYSIS PATIENTS. Specimen markedly ictericHEMOGLOBIN AND [id number] 09:56:00* Test Item Value Reference Range Interpretation Comments HEMOGLOBIN (BEAKER) (test code = 410) 8.2 GM/DL 13.7-17.5 L HEMATOCRIT (BEAKER) (test code = 411) 24.9 % 40.1-51.0 L SPUTUM CULTURE + GRAM [id number] 09:21:00* Test Item Value Reference Range Interpretation Comments CULTURE (BEAKER) (test code = 1095) <1+ Normal respiratory chase pr esent GRAM STAIN RESULT (BEAKER) (test code = 1123) <1+ WBCs GRAM STAIN RESULT (BEAKER) (test code = 62187) 0-5 epithelial cells GRAM STAIN RESULT (BEAKER) (test code = 48762) No organisms seen CBC W/PLT COUNT & AUTO [id number] 08:52:00* Test Item Value Reference Range Interpretation [...] quate Received comment: User comments: Slide comments: [id number] 08:27:00* Test Item Value Reference Range Interpretation Comments T3 TOTAL (BEAKER) (test code = 656) 55 ng/dL 48-159 CALCIUM, [id number] 05:17:00* Test Item Value Reference Range Interpretation Comments CALCIUM IONIZED (BEAKER) (test code = 698) 1.01 mmol/L 1.12-1.27 L PH, BLOOD (BEAKER) (test code = 1810) 7.43 HEPATIC FUNCTION [id number] 05:05:00* Test Item Value Reference Range Interpretation [...] U/L 6-55 H Specimen markedly ictericBASIC METABOLIC [id number] 05:05:00* Test Item Value Reference Range Interpretation [...] NOT APPLICABLE FOR DIALYSIS PATIENTS. Specimen markedly [id number] 05:04:00* Test Item Value Reference Range Interpretation Comments MAGNESIUM (BEAKER) (test code = 627) 2.2 mg/dL 1.6-2.6 RAD, CHEST, 1 VIEW, NON [id number] 04:59:00Reason for exam:->Pulmonary edema evaluationShould this be [...] Avendaño Verified Date/Time: 06/20/2018 04:59:55 Reading Location: [address] Neuro Reading Room [id number] 04:44:00* Test Item Value Reference Range Interpretation Comments PARTIAL THROMBOPLASTIN TIME (BEAKER) (test code = 760) 45.0 seconds 22.5-36.0 H PROTHROMBIN [id number] 04:43:00* Test Item Value Reference Range Interpretation [...] pat ients with mechanical heart valves.LACTIC ACID, [id number] 04:41:00* Test Item Value Reference Range Interpretation Comments LACTATE BLOOD ARTERIAL (2) (BEAKER) (test code = 2874) 0.6 mmol/L 0.5-2.2 Specimen markedly ictericBLOOD GAS, [id number] 04:29:00* Test Item Value Reference Range Interpretation [...] code = 1819) 40.0 % BASIC METABOLIC [id number] 01:12:00* Test Item Value Reference Range Interpretation [...] FOR DIALYSIS PATIENTS. Specimen markedly ictericHEMOGLOBIN AND [id number] 00:24:00* Test Item Value Reference Range Interpretation Comments HEMOGLOBIN (BEAKER) (test code = 410) 8.3 GM/DL 13.7-17.5 L HEMATOCRIT (BEAKER) (test code = 411) 25.0 % 40.1-51.0 L POCT-GLUCOSE [id number] 00:18:00* Test Item Value Reference Range Interpretation Comments POC-GLUCOSE METER (BEAKER) (test code = 1538) 233 mg/dL 70-[address] [facility] [address] [facility] [address] HEMOGLOBIN AND [id number] 20:18:00* Test Item Value Reference Range Interpretation Comments HEMOGLOBIN (BEAKER) (test code = 410) 8.4 GM/DL 13.7-17.5 L HEMATOCRIT (BEAKER) (test code = 411) 25.0 % 40.1-51.0 L BASIC METABOLIC [id number] 19:06:00* Test Item Value Reference Range Interpretation [...] FOR DIALYSIS PATIENTS. Specimen markedly ictericBASIC METABOLIC [id number] 19:06:00* Test Item Value Reference Range Interpretation [...] FOR DIALYSIS PATIENTS. Specimen markedly ictericHEMOGLOBIN AND [id number] 18:48:00* Test Item Value Reference Range Interpretation Comments HEMOGLOBIN (BEAKER) (test code = 410) 8.3 GM/DL 13.7-17.5 L HEMATOCRIT (BEAKER) (test code = 411) 25.7 % 40.1-51.0 L POCT-GLUCOSE [id number] 17:33:00* Test Item Value Reference Range Interpretation Comments POC-GLUCOSE METER (BEAKER) (test code = 1538) 193 mg/dL 70-[address] [facility] [address] [facility] [address] CYTOMEGALOVIRUS ANTIBODY, [id number] 14:16:00* Test Item Value Reference Range Interpretation Comments CYTOMEGALOVIRUS, IGG (BEAKER) (test code = 3429) Negative Negat mumtaz, Equivocal CMV IgG Result Interpretation: </= 0.8 Al Negative 0.9-1.0 Al Equivocal > /=1.1 Al PositiveCYTOMEGALOVIRUS ANTIBODY, [id number] 14:16:00* Test Item Value Reference Range Interpretation Comments CYTOMEGALOVIRUS IGM ANTIBODY (BEAKER) (test code = 3437) Neg ative Negative, Equivocal CMV IgM Result Interpretation: </= 0.8 Al Negative 0.9-1.0 Al Equivocal > /= 1.1 Al PositiveEBV ANTIBODY, [id number] 14:16:00* Test Item Value Reference Range Interpretation Comments ALEX MAE VIRAL CAPSID ANTIGEN IGG (BEAKER) (test code = 3415) Positive Negative, Equivocal A Alex Mae Viral Capsid Antigen IgG Result Interpretation: </= 0.8 Al Negative 0.9-1.0 Al Equivocal >/= 1.1 Al PositiveEBV ANTIBODY, [id number] 14:16:00* Test Item Value Reference Range Interpretation [...] = 411) 26.4 % 40.1-51.0 L POCT-GLUCOSE [id number] 12:45:00* Test Item Value Reference Range Interpretation Comments POC-GLUCOSE METER (BEAKER) (test code = 1538) 204 mg/dL 70-[address] [facility] [address] [facility] [address] CBC W/PLT COUNT & AUTO [id number] 11:32:00* Test Item Value Reference Range Interpretation [...] manually reviewed rbc morp hology on the [id number] 11:25:00* Test Item Value Reference Range Interpretation Comments RPR SCREEN (BEAKER) (test code = 420) Nonreactive Nonreactive [id number] 11:23:00* Test Item Value Reference Range Interpretation Comments AMMONIA (BEAKER) (test code = 348) 62 mol/L 18-72 HEMOGLOBIN AND [id number] 10:37:00* Test Item Value Reference Range Interpretation Comments HEMOGLOBIN (BEAKER) (test code = 410) 7.9 GM/DL 13.7-17.5 L HEMATOCRIT (BEAKER) (test code = 411) 24.4 % 40.1-51.0 L BASIC METABOLIC [id number] 09:29:00* Test Item Value Reference Range Interpretation [...] APPLICABLE FOR DIALYSIS PATIENTS. Specimen markedly ictericPOCT-GLUCOSE [id number] 08:36:00* Test Item Value Reference Range Interpretation Comments POC-GLUCOSE METER (BEAKER) (test code = 1538) 211 mg/dL 70-[address] [facility] [address] [facility] [address] RAD, CHEST, 1 VIEW, NON [id number] 07:24:00Reason for exam:->Pulmonary edema evaluationShould this be [...] MDReport Verified Date/Time: 06/19/2018 07:24:06 Reading Location: [facility] C013V Neuro Reading Room Electronically signed by: OMERO MOURA M.D. on 07:24 AM [id number] 05:40:00* Test Item Value Reference Range Interpretation Comments PARTIAL THROMBOPLASTIN TIME (BEAKER) (test code = 760) 44.4 seconds 22.5-36.0 H PROTHROMBIN TIME/[id number] 05:39:00* Test Item Value Reference Range Interpretation [...] pat ients with mechanical heart valves.HEPATIC FUNCTION [id number] 05:17:00* Test Item Value Reference Range Interpretation [...] U/L 6-55 H Specimen markedly ictericBASIC METABOLIC [id number] 05:17:00* Test Item Value Reference Range Interpretation [...] NOT APPLICABLE FOR DIALYSIS PATIENTS. Specimen markedly [id number] 05:13:00* Test Item Value Reference Range Interpretation Comments PHOSPHORUS (BEAKER) (test code = 604) 5.3 mg/dL 2.3-4.7 H [id number] 05:13:00* Test Item Value Reference Range Interpretation Comments MAGNESIUM (BEAKER) (test code = 627) 2.2 mg/dL 1.6-2.6 LACTIC ACID, [id number] 04:57:00* Test Item Value Reference Range Interpretation Comments LACTATE BLOOD ARTERIAL (2) (BEAKER) (test code = 2874) 0.7 mmol/L 0.5-2.2 Specimen markedly ictericCALCIUM, [id number] 04:46:00* Test Item Value Reference Range Interpretation Comments CALCIUM IONIZED (BEAKER) (test code = 698) 1.07 mmol/L 1.12-1.27 L PH, BLOOD (BEAKER) (test code = 1810) 7.47 BLOOD GAS, [id number] 04:46:00* Test Item Value Reference Range Interpretation [...] code = 1819) 40.0 % OCCULT BLOOD, [id number] 01:25:00* Test Item Value Reference Range Interpretation Comments FECAL OCCULT BLOOD (BEAKER) (test code = 618) Positive Negative A BASIC METABOLIC [id number] 23:56:00* Test Item Value Reference Range Interpretation [...] APPLICABLE FOR DIALYSIS PATIENTS. Specimen markedly ictericCALCIUM, [id number] 23:54:00* Test Item Value Reference Range Interpretation Comments CALCIUM IONIZED (BEAKER) (test code = 698) 1.11 mmol/L 1.12-1.27 L PH, BLOOD (BEAKER) (test code = 1810) 7.46 Check serum Ionized Calcium level after 4 hours after IV Calcium replacement. HEMOGLOBIN AND [id number] 23:37:00* Test Item Value Reference Range Interpretation Comments HEMOGLOBIN (BEAKER) (test code = 410) 7.0 GM/DL 13.7-17.5 L HEMATOCRIT (BEAKER) (test code = 411) 22.2 % 40.1-51.0 L POCT-GLUCOSE [id number] 23:36:00* Test Item Value Reference Range Interpretation Comments POC-GLUCOSE METER (BEAKER) (test code = 1538) 161 mg/dL 70-[address] [facility] [address] [facility] [address] HEMOGLOBIN AND [id number] 20:42:00* Test Item Value Reference Range Interpretation Comments HEMOGLOBIN (BEAKER) (test code = 410) 7.2 GM/DL 13.7-17.5 L HEMATOCRIT (BEAKER) (test code = 411) 22.3 % 40.1-51.0 L CBC W/PLT COUNT & AUTO [id number] 18:06:00* Test Item Value Reference Range Interpretation [...] Received comment: User comments: Slide comments: POCT-GLUCOSE [id number] 17:33:00* Test Item Value Reference Range Interpretation Comments POC-GLUCOSE METER (BEAKER) (test code = 1538) 196 mg/dL 70-[address] [facility] [address] [facility] [address] BASIC METABOLIC [id number] 17:24:00* Test Item Value Reference Range Interpretation [...] NOT APPLICABLE FOR DIALYSIS PATIENTS. Specimen markedly [id number] 14:47:00* Test Item Value Reference Range Interpretation Comments T4 TOTAL (BEAKER) (test code = 895) 8.1 ug/dL 4.9-11.7 CRYPTOCOCCAL [id number] 14:31:00* Test Item Value Reference Range Interpretation Comments CRYPTOCOCCAL ANTIGEN, SERUM (BEAKER) (test code = 1828) Nega tive Negative, Interference [id number] 14:20:00* Test Item Value Reference Range Interpretation Comments FERRITIN (BEAKER) (test code = 361) 2332 ng/mL 5-275 H LIPID [id number] 14:07:00* Test Item Value Reference Range Interpretation [...] High 160-189 Very High >=190 Specimen markedly [id number] 13:01:00* Test Item Value Reference Range Interpretation Comments PROSTATE SPECIFIC ANTIGEN (BEAKER) (test code = 844) 0.5 ng/mL 0 .0-4.0 HIV-1 ANTIGEN WITH HIV-1/2 [id number] 13:01:00* Test Item Value Reference Range Interpretation Comments HIV-1 ANTIGEN WITH HIV 1\\T\\2 ANTIBODY (2) (BEAKER) (te st code = 2586) Nonreactive Nonreactive CARCINOEMBRYONIC ANTIGEN (CEA)2018-06-18 13:01:00* Test Item Value Reference Range Interpretation Comments CARCINOEMBRYONIC ANTIGEN (BEAKER) (test code = 685) 16.6 ng/mL 0. 0-5.0 H VITAMIN D, [id number] 13:01:00* Test Item Value Reference Range Interpretation Comments VITAMIN D 25-OH (BEAKER) (test code = 2764) 14.7 ng/mL 6.6-49.9 Effective 12/06/2016: Reference Range ChangeNew: 6.6-49.9 ng/mL Previous: 13.0 -47.8 ng/mLRecommended Vitamin D Target Range: 30.0-40.0 ng/mLPOCT-GLUCOSE METER 2018-06-18 12:53:00* Test Item Value Reference Range Interpretation Comments POC-GLUCOSE METER (BEAKER) (test code = 1538) 239 mg/dL 70-[address] [facility] [address] [place] [address] [id number] 12:43:00* Test Item Value Reference Range Interpretation Comments TRANSFERRIN (BEAKER) (test code = 541) 112 mg/dL 174-382 L Specimen markedly ictericURIC [id number] 12:42:00* Test Item Value Reference Range Interpretation Comments URIC ACID (BEAKER) (test code = 773) 15.6 mg/dL 2.6-7.2 H Specimen markedly ictericGAMMA GLUTAMYL TRANSFERASE (GGT)2018-06-18 12:42:00* Test Item Value Reference Range Interpretation Comments GAMMA GLUTAMYL TRANSFERASE (BEAKER) (test code = 364) 125 U/L 9-64 H Specimen markedly [id number] 12:40:00* Test Item Value Reference Range Interpretation Comments ETHANOL (BEAKER) (test code = 400) < mg/dL <=10 [id number] 12:35:00* Test Item Value Reference Range Interpretation Comments FIBRINOGEN LEVEL (BEAKER) (test code = 658) 811 mg/dl 225-434 H BLOOD [id number] 11:56:00* Test Item Value Reference Range Interpretation Comments CULTURE (BEAKER) (test code = 1095) No growth in 5 days BLOOD [id number] 11:56:00* Test Item Value Reference Range Interpretation Comments CULTURE (BEAKER) (test code = 1095) No growth in 5 days CALCIUM, [id number] 11:40:00* Test Item Value Reference Range Interpretation Comments CALCIUM IONIZED (BEAKER) (test code = 698) 1.12 mmol/L 1.12-1.27 PH, BLOOD (BEAKER) (test code = 1810) 7.49 CBC W/PLT COUNT & AUTO [id number] 08:56:00* Test Item Value Reference Range Interpretation [...] WBC: SEGMENTED WITH TOXIG GRANU LATION PRESENT [id number] 08:54:00* Test Item Value Reference Range Interpretation Comments MAGNESIUM (BEAKER) (test code = 627) 2.3 mg/dL 1.6-2.6 BASIC METABOLIC [id number] 08:54:00* Test Item Value Reference Range Interpretation [...] APPLICABLE FOR DIALYSIS PATIENTS. Specimen markedly ictericPOCT-GLUCOSE [id number] 08:29:00* Test Item Value Reference Range Interpretation Comments POC-GLUCOSE METER (BEAKER) (test code = 1538) 223 mg/dL 70-[address] [facility] [address] [facility] [address] RAD, CHEST, 1 VIEW, NON [id number] 04:54:00Reason for exam:->Pulmonary edema evaluationShould this be [...] Verified D ate/Time: 06/18/2018 04:54:27 Reading Location: [facility] B1 C013Y CT Body Reading Ro om D GAS, [id number] 04:39:00* Test Item Value Reference Range Interpretation [...] code = 1819) 40.0 % HEPATIC FUNCTION [id number] 04:35:00* Test Item Value Reference Range Interpretation [...] 347) 138 U/L 6-55 H Specimen markedly [id number] 04:34:00* Test Item Value Reference Range Interpretation Comments MAGNESIUM (BEAKER) (test code = 627) 2.5 mg/dL 1.6-2.6 BASIC METABOLIC [id number] 04:34:00* Test Item Value Reference Range Interpretation [...] code = 380) 50 U/L 29-20 0 [id number] 04:23:00* Test Item Value Reference Range Interpretation Comments PARTIAL THROMBOPLASTIN TIME (BEAKER) (test code = 760) 49.4 seconds 22.5-36.0 H PROTHROMBIN TIME/[id number] 04:22:00* Test Item Value Reference Range Interpretation [...] pat ients with mechanical heart valves.LACTIC ACID, [id number] 04:17:00* Test Item Value Reference Range Interpretation Comments LACTATE BLOOD ARTERIAL (2) (BEAKER) (test code = 2874) 1.3 mmol/L 0.5-2.2 Specimen markedly [id number] 00:59:00* Test Item Value Reference Range Interpretation Comments MAGNESIUM (BEAKER) (test code = 627) 2.1 mg/dL 1.6-2.6 BASIC METABOLIC [id number] 00:59:00* Test Item Value Reference Range Interpretation [...] APPLICABLE FOR DIALYSIS PATIENTS. Specimen markedly ictericPOCT-GLUCOSE [id number] 00:20:00* Test Item Value Reference Range Interpretation Comments POC-GLUCOSE METER (BEAKER) (test code = 1538) 155 mg/dL 70-[address] [facility] [address] [facility] [address] POCT-GLUCOSE [id number] 18:09:00* Test Item Value Reference Range Interpretation Comments POC-GLUCOSE METER (BEAKER) (test code = 1538) 187 mg/dL 70-[address] [facility] [address] [facility] [address] BASIC METABOLIC [id number] 16:09:00* Test Item Value Reference Range Interpretation [...] APPLICABLE FOR DIALYSIS PATIENTS. Specimen markedly ictericPOCT-GLUCOSE [id number] 12:03:00* Test Item Value Reference Range Interpretation Comments POC-GLUCOSE METER (BEAKER) (test code = 1538) 212 mg/dL 70-110 H TESTED AT [address] [address] [id number] 11:52:00* Test Item Value Reference Range Interpretation Comments MAGNESIUM (BEAKER) (test code = 627) 2.0 mg/dL 1.6-2.6 BASIC METABOLIC [id number] 11:52:00* Test Item Value Reference Range Interpretation [...] Specimen markedly ictericPERIPHERAL BLOOD SMEAR - PATHOLOGIST [id number] 08:37:00* Test Item Value Reference Range Interpretation Comments PERIPHERAL SMR REVIEW (BEAKER) (test code = 2640) Left shifted granulocytes with toxic changes. No circulating blasts. No significantly increased schistocytes. [id number] (BEAKER) (test code = 2849) Raul Arenas M.D.(electronic signature) RAD, CHEST, 1 VIEW, NON [id number] 08:15:00Reason for exam:->Pulmonary edema evaluationShould this be performed at the bedside?->YesFINAL REPORT Chest, one view. HISTORY: Pulmonary edema evaluation COMPARISON: Radiograph from 06/16/2018 IMPRESSION: Unchanged positioning of support lines and tubes. The interstitial edema is unchanged. No pleural effusion or pneumothorax. The cardiac silhouette is unchanged. No acute bony abnormality. Signed: Kyle Rae MDReport Verified Date/Time: 06/17/2018 08:15:08 Reading Location: [facility] Radiology Reading Room LT BLOOD, [id number] 07:04:00* Test Item Value Reference Range Interpretation Comments FECAL OCCULT BLOOD (BEAKER) (test code = 618) Negative Negative POCT-GLUCOSE [id number] 06:28:00* Test Item Value Reference Range Interpretation Comments POC-GLUCOSE METER (BEAKER) (test code = 1538) 209 mg/dL 70-[address] [facility] [address] [facility] [address] [id number] 05:05:00* Test Item Value Reference Range Interpretation Comments PARTIAL THROMBOPLASTIN TIME (BEAKER) (test code = 760) 51.6 seconds 22.5-36.0 H PROTHROMBIN [id number] 05:04:00* Test Item Value Reference Range Interpretation [...] pat ients with mechanical heart valves.HEPATIC FUNCTION [id number] 04:18:00* Test Item Value Reference Range Interpretation [...] 347) 146 U/L 6-55 H Specimen markedly [id number] 03:59:00* Test Item Value Reference Range Interpretation Comments MAGNESIUM (BEAKER) (test code = 627) 2.4 mg/dL 1.6-2.6 BASIC METABOLIC [id number] 03:59:00* Test Item Value Reference Range Interpretation [...] NOT APPLICABLE FOR DIALYSIS PATIENTS. Specimen markedly [id number] 03:59:00* Test Item Value Reference Range Interpretation Comments AMYLASE (BEAKER) (test code = 349) 49 U/L 25-125 Specimen markedly [id number] 03:59:00* Test Item Value Reference Range Interpretation Comments LIPASE (BEAKER) (test code = 749) 186 U/L 8-78 H Specimen markedly ictericLACTIC ACID, [id number] 03:41:00* Test Item Value Reference Range Interpretation Comments LACTATE BLOOD ARTERIAL (2) (BEAKER) (test code = 2874) 1.5 mmol/L 0.5-2.2 Specimen markedly ictericCBC W/PLT COUNT & AUTO [id number] 03:38:00 * Test Item Value Reference Range [...] 2801) 3 % 0-1 H BLOOD GAS, [id number] 03:30:00* Test Item Value Reference Range Interpretation [...] (test code = 1819) 40.0 % CALCIUM, [id number] 03:28:00* Test Item Value Reference Range Interpretation Comments CALCIUM IONIZED (BEAKER) (test code = 698) 1.14 mmol/L 1.12-1.27 PH, BLOOD (BEAKER) (test code = 1810) 7.53 Check serum Ionized Calcium level after 4 hours after IV Calcium replacement. POCT-GLUCOSE [id number] 00:11:00* Test Item Value Reference Range Interpretation Comments POC-GLUCOSE METER (BEAKER) (test code = 1538) 233 mg/dL 70-[address] [facility] [address] [facility] [address] HEMOGLOBIN AND [id number] 23:41:00* Test Item Value Reference Range Interpretation Comments HEMOGLOBIN (BEAKER) (test code = 410) 8.3 GM/DL 13.7-17.5 L HEMATOCRIT (BEAKER) (test code = 411) 26.1 % 40.1-51.0 L [id number] 20:50:00* Test Item Value Reference Range Interpretation Comments MAGNESIUM (BEAKER) (test code = 627) 2.5 mg/dL 1.6-2.6 BASIC METABOLIC [id number] 20:50:00* Test Item Value Reference Range Interpretation [...] APPLICABLE FOR DIALYSIS PATIENTS. Specimen markedly ictericCALCIUM, [id number] 20:26:00* Test Item Value Reference Range Interpretation Comments CALCIUM IONIZED (BEAKER) (test code = 698) 1.11 mmol/L 1.12-1.27 L PH, BLOOD (BEAKER) (test code = 1810) 7.53 Check serum Ionized Calcium level after 4 hours after IV Calcium replacement. POCT-GLUCOSE [id number] 20:07:00* Test Item Value Reference Range Interpretation Comments POC-GLUCOSE METER (BEAKER) (test code = 1538) 203 mg/dL 70-[address] [facility] [address] [facility] [address] POCT-GLUCOSE [id number] 16:57:00* Test Item Value Reference Range Interpretation Comments POC-GLUCOSE METER (BEAKER) (test code = 1538) 130 mg/dL 70-110 H TESTED AT [address] [address] VITAMIN B12 AND [id number] 16:12:00* Test Item Value Reference Range Interpretation Comments VITAMIN B12 (BEAKER) (test code = 774) 1499 pg/mL 213-816 H FOLATE (BEAKER) (test code = 362) 14.9 ng/mL >=7.0 POCT-GLUCOSE [id number] 15:35:00* Test Item Value Reference Range Interpretation Comments POC-GLUCOSE METER (BEAKER) (test code = 1538) 101 mg/dL 70-110 TESTED AT [place] [id number] [facility] [address] (MANUAL DIFFERENTIAL)2018-06-16 14:42:00* Test Item Value Reference [...] RBCS(BEAKER) (test code = 478) 1+ few [id number] 14:16:00* Test Item Value Reference Range Interpretation Comments HAPTOGLOBIN (BEAKER) (test code = 366) 250 mg/dL 14-258 [id number] 14:09:00* Test Item Value Reference Range Interpretation Comments MAGNESIUM (BEAKER) (test code = 627) 2.1 mg/dL 1.6-2.6 BASIC METABOLIC [id number] 14:09:00* Test Item Value Reference Range Interpretation [...] NOT APPLICABLE FOR DIALYSIS PATIENTS. Specimen markedly [id number] 14:09:00* Test Item Value Reference Range Interpretation Comments AMYLASE (BEAKER) (test code = 349) 55 U/L 25-125 Specimen markedly ictericLACTATE DEHYDROGENASE (LDH)2018-06-16 14:09:00* Test Item Value Reference Range Interpretation Comments LACTATE DEHYDROGENASE (BEAKER) (test code = 635) 388 U/L 125-2 20 H [id number] 14:09:00* Test Item Value Reference Range Interpretation [...] = 2590) 30 % 20-5 5 IRON, [id number] 14:04:00* Test Item Value Reference Range Interpretation Comments IRON (BEAKER) (test code = 547) 37.0 ug/dL 40.0-160.0 L LACTIC ACID, [id number] 14:02:00* Test Item Value Reference Range Interpretation [...] 0 /100 WBC 0 -0 BLOOD GAS, [id number] 13:45:00* Test Item Value Reference Range Interpretation [...] (test code = 1819) 100.0 % POCT-GLUCOSE [id number] 13:23:00* Test Item Value Reference Range Interpretation Comments POC-GLUCOSE METER (BEAKER) (test code = 1538) 121 mg/dL 70-[address] [facility] [address] [facility] [address] POCT-GLUCOSE [id number] 11:05:00* Test Item Value Reference Range Interpretation Comments POC-GLUCOSE METER (BEAKER) (test code = 1538) 145 mg/dL 70-[address] [facility] [address] [facility] [address] POCT-GLUCOSE [id number] 08:56:00* Test Item Value Reference Range Interpretation Comments POC-GLUCOSE METER (BEAKER) (test code = 1538) 147 mg/dL 70-[address] [facility] [address] [place] [address] CBC W/PLT COUNT & AUTO [id number] 08:10:00* Test Item Value Reference Range Interpretation [...] 1+ few RAD, CHEST, 1 VIEW, NON [id number] 07:59:00Reason for exam:->Pulmonary edema evaluationShould this be performed at the bedside?->YesFINAL REPORT INDICATION: Pulmonary edema evaluation COMPARISON:June 15. TECHNIQUE: Chest radiograph, single view, portable technique. FINDINGS / IMPRESSION: Prominent heart shadow and diffuse interstitial pulmonary edema are again demonstrated. Support lines and tubes unchanged and appear satisfactory. No pneumothorax. Signed: Natalio Santillan MDReport Verified Date/Time: 06/16/2018 07:59:49 Reading Location: [facility] B1 C013W Consult Reading Room [facility] signed by: NATALIO SANTILLAN M.D. on 06/16/2018 07:59 AM POCT- GLUCOSE [id number] 07:05:00* Test Item Value Reference Range Interpretation Comments POC-GLUCOSE METER (BEAKER) (test code = 1538) 114 mg/dL 70-[address] [facility] [address] [facility] [address] POCT-GLUCOSE [id number] 05:09:00* Test Item Value Reference Range Interpretation Comments POC-GLUCOSE METER (BEAKER) (test code = 1538) 120 mg/dL 70-[address] [facility] [address] [facility] [address] HEPATIC FUNCTION [id number] 04:53:00* Test Item Value Reference Range Interpretation [...] 347) 138 U/L 6-55 H Specimen markedly [id number] 04:30:00* Test Item Value Reference Range Interpretation Comments MAGNESIUM (BEAKER) (test code = 627) 2.3 mg/dL 1.6-2.6 BASIC METABOLIC [id number] 04:30:00* Test Item Value Reference Range Interpretation [...] NOT APPLICABLE FOR DIALYSIS PATIENTS. Specimen markedly [id number] 04:14:00* Test Item Value Reference Range Interpretation Comments PARTIAL THROMBOPLASTIN TIME (BEAKER) (test code = 760) 48.2 seconds 22.5-36.0 H PROTHROMBIN [id number] 04:13:00* Test Item Value Reference Range Interpretation [...] pat ients with mechanical heart valves.LACTIC ACID, [id number] 04:08:00* Test Item Value Reference Range Interpretation Comments LACTATE BLOOD ARTERIAL (2) (BEAKER) (test code = 2874) 0.9 mmol/L 0.5-2.2 Specimen markedly ictericBLOOD GAS, [id number] 03:51:00* Test Item Value Reference Range Interpretation [...] (test code = 1819) 40.0 % CALCIUM, [id number] 03:49:00* Test Item Value Reference Range Interpretation Comments CALCIUM IONIZED (BEAKER) (test code = 698) 1.13 mmol/L 1.12-1.27 PH, BLOOD (BEAKER) (test code = 1810) 7.52 Check serum Ionized Calcium level after 4 hours after IV Calcium replacement. POCT-GLUCOSE [id number] 02:50:00* Test Item Value Reference Range Interpretation Comments POC-GLUCOSE METER (BEAKER) (test code = 1538) 132 mg/dL 70-110 H TESTED AT [address] [address] POCT-GLUCOSE [id number] 01:18:00* Test Item Value Reference Range Interpretation Comments POC-GLUCOSE METER (BEAKER) (test code = 1538) 137 mg/dL 70-110 H TESTED AT [address] [address] POCT-GLUCOSE [id number] 00:07:00* Test Item Value Reference Range Interpretation Comments POC-GLUCOSE METER (BEAKER) (test code = 1538) 131 mg/dL 70-110 H TESTED AT [address] [address] BLOOD GAS, [id number] 22:54:00* Test Item Value Reference Range Interpretation [...] (test code = 1819) 40.0 % POCT-GLUCOSE [id number] 22:51:00* Test Item Value Reference Range Interpretation Comments POC-GLUCOSE METER (BEAKER) (test code = 1538) 167 mg/dL 70-110 H TESTED AT [address] [address] [id number] 22:08:00* Test Item Value Reference Range Interpretation Comments POTASSIUM (BEAKER) (test code = 379) 3.9 meq/L 3.5-5.1 PRN - repeat potassium levels every 1 hour until glucose level is less than 450 mg/[id number] 22:08:00* Test Item Value Reference Range Interpretation Comments MAGNESIUM (BEAKER) (test code = 627) 2.3 mg/dL 1.6-2.6 PRN - repeat potassium levels every 1 hour until glucose level is less than 450 mg/dLPOCT-GLUCOSE [id number] 22:00:00* Test Item Value Reference Range Interpretation Comments POC-GLUCOSE METER (BEAKER) (test code = 1538) 126 mg/dL 70-110 H TESTED AT [address] [address] HEMOGLOBIN AND [id number] 21:56:00* Test Item Value Reference Range Interpretation Comments HEMOGLOBIN (BEAKER) (test code = 410) 8.4 GM/DL 13.7-17.5 L HEMATOCRIT (BEAKER) (test code = 411) 26.0 % 40.1-51.0 L CALCIUM, [id number] 21:53:00* Test Item Value Reference Range Interpretation Comments CALCIUM IONIZED (BEAKER) (test code = 698) 1.10 mmol/L 1.12-1.27 L PH, BLOOD (BEAKER) (test code = 1810) 7.50 Check serum Ionized Calcium level after 4 hours after IV Calcium replacement. POCT-GLUCOSE [id number] 20:41:00* Test Item Value Reference Range Interpretation Comments POC-GLUCOSE METER (BEAKER) (test code = 1538) 90 mg/dL 70-110 TESTED AT [address] [address] BLOOD GAS, [id number] 18:42:00* Test Item Value Reference Range Interpretation [...] (test code = 1819) 50.0 % POCT-GLUCOSE [id number] 17:49:00* Test Item Value Reference Range Interpretation Comments POC-GLUCOSE METER (BEAKER) (test code = 1538) 125 mg/dL 70-[address] [facility] [address] [facility] [address] BASIC METABOLIC [id number] 17:46:00* Test Item Value Reference Range Interpretation [...] FOR DIALYSIS PATIENTS. Specimen markedly ictericBLOOD GAS, [id number] 17:35:00* Test Item Value Reference Range Interpretation [...] (test code = 1819) 50.0 % POCT-GLUCOSE [id number] 15:27:00* Test Item Value Reference Range Interpretation Comments POC-GLUCOSE METER (BEAKER) (test code = 1538) 138 mg/dL 70-[address] [facility] [address] [facility] [place] [address] [id number] 13:59:00* Test Item Value Reference Range Interpretation Comments MAGNESIUM (BEAKER) (test code = 627) 2.1 mg/dL 1.6-2.6 BASIC METABOLIC [id number] 13:59:00* Test Item Value Reference Range Interpretation [...] FOR DIALYSIS PATIENTS. Specimen markedly ictericBLOOD GAS, [id number] 13:40:00* Test Item Value Reference Range Interpretation [...] code = 1819) 50.0 % HEMOGLOBIN AND [id number] 13:40:00* Test Item Value Reference Range Interpretation Comments HEMOGLOBIN (BEAKER) (test code = 410) 7.4 GM/DL 13.7-17.5 L HEMATOCRIT (BEAKER) (test code = 411) 23.5 % 40.1-51.0 L Please collect after PRBCs doneRAD, CHEST, 1 VIEW, NON [id number] 11:32:00 Reason for exam:->Pulmonary edema evaluationShould this [...] MDReport Verified Date/Time: 06/15/2018 11:32:52 Reading Location: [address] Consult Reading Room -GLUCOSE [id number] 10:50:00* Test Item Value Reference Range Interpretation Comments POC-GLUCOSE METER (BEAKER) (test code = 1538) 107 mg/dL 70-110 TESTED AT [address] [address] CBC W/PLT COUNT & AUTO [id number] 09:04:00* Test Item Value Reference Range Interpretation [...] quate Received comment: User comments: Slide comments: [id number] 08:43:00* Test Item Value Reference Range Interpretation Comments POTASSIUM (BEAKER) (test code = 379) 3.9 meq/L 3.5-5.1 PRN - repeat glucose levels every 1 hour or as specified by insulin titration or ders until glucose level is less than 450 mg/dLCheck Serum Potassium level 2 roxy rs after oral potassium replacement completed or 30 min after intravenous potass ium replacement.[id number] 08:43:00* Test Item Value Reference Range Interpretation Comments GLUCOSE RANDOM (BEAKER) (test code = 652) 123 mg/dL 70-105 H PRN - repeat glucose levels every 1 hour or as specified by insulin titration or ders until glucose level is less than 450 mg/dLCheck Serum Potassium level 2 roxy rs after oral potassium replacement completed or 30 min after intravenous potass ium replacement.HEMOGLOBIN AND [id number] 07:05:00* Test Item Value Reference Range Interpretation Comments HEMOGLOBIN (BEAKER) (test code = 410) 6.6 GM/DL 13.7-17.5 L HEMATOCRIT (BEAKER) (test code = 411) 21.3 % 40.1-51.0 L POCT-GLUCOSE [id number] 06:52:00* Test Item Value Reference Range Interpretation Comments POC-GLUCOSE METER (BEAKER) (test code = 1538) 117 mg/dL 70-[address] [facility] [address] [place] [address] CALCIUM, [id number] 04:47:00* Test Item Value Reference Range Interpretation Comments CALCIUM IONIZED (BEAKER) (test code = 698) 1.10 mmol/L 1.12-1.27 L PH, BLOOD (BEAKER) (test code = 1810) 7.48 Check serum Ionized Calcium level after 4 hours after IV Calcium replacement. BLOOD GAS, [id number] 04:47:00* Test Item Value Reference Range Interpretation [...] code = 1819) 50.0 % BASIC METABOLIC [id number] 04:27:00* Test Item Value Reference Range Interpretation [...] NOT APPLICABLE FOR DIALYSIS PATIENTS. Specimen markedly [id number] 04:15:00* Test Item Value Reference Range Interpretation Comments MAGNESIUM (BEAKER) (test code = 627) 2.4 mg/dL 1.6-2.6 HEPATIC FUNCTION [id number] 04:15:00* Test Item Value Reference Range Interpretation [...] 134 U/L 6-55 H Specimen markedly ictericPOCT-GLUCOSE [id number] 04:02:00* Test Item Value Reference Range Interpretation Comments POC-GLUCOSE METER (BEAKER) (test code = 1538) 107 mg/dL 70-[address] [facility] [address] [facility] [address] [id number] 03:59:00* Test Item Value Reference Range Interpretation Comments PARTIAL THROMBOPLASTIN TIME (BEAKER) (test code = 760) 54.6 seconds 22.5-36.0 H PROTHROMBIN [id number] 03:58:00* Test Item Value Reference Range Interpretation [...] pat ients with mechanical heart valves.LACTIC ACID, [id number] 03:56:00* Test Item Value Reference Range Interpretation Comments LACTATE BLOOD ARTERIAL (2) (BEAKER) (test code = 2874) 1.1 mmol/L 0.5-2.2 Specimen markedly ictericPOCT-GLUCOSE [id number] 03:10:00* Test Item Value Reference Range Interpretation Comments POC-GLUCOSE METER (BEAKER) (test code = 1538) 118 mg/dL 70-110 H TESTED AT [address] [address] POCT-GLUCOSE [id number] 02:11:00* Test Item Value Reference Range Interpretation Comments POC-GLUCOSE METER (BEAKER) (test code = 1538) 112 mg/dL 70-110 H TESTED AT [address] [address] POCT-GLUCOSE [id number] 01:28:00* Test Item Value Reference Range Interpretation Comments POC-GLUCOSE METER (BEAKER) (test code = 1538) 126 mg/dL 70-110 H TESTED AT [address] [address] BASIC METABOLIC [id number] 00:27:00* Test Item Value Reference Range Interpretation [...] APPLICABLE FOR DIALYSIS PATIENTS. Specimen markedly ictericPOCT-GLUCOSE [id number] 00:22:00* Test Item Value Reference Range Interpretation Comments POC-GLUCOSE METER (BEAKER) (test code = 1538) 155 mg/dL 70-110 H TESTED AT [place] [id number] [facility] [address] POCT-GLUCOSE [id number] 23:18:00* Test Item Value Reference Range Interpretation Comments POC-GLUCOSE METER (BEAKER) (test code = 1538) 168 mg/dL 70-110 H TESTED AT [address] [address] POCT-GLUCOSE [id number] 22:13:00* Test Item Value Reference Range Interpretation Comments POC-GLUCOSE METER (BEAKER) (test code = 1538) 171 mg/dL 70-110 H TESTED AT [address] [address] [id number] 21:19:00* Test Item Value Reference Range Interpretation Comments MAGNESIUM (BEAKER) (test code = 627) 2.5 mg/dL 1.6-2.6 POCT-GLUCOSE [id number] 21:14:00* Test Item Value Reference Range Interpretation Comments POC-GLUCOSE METER (BEAKER) (test code = 1538) 166 mg/dL 70-110 H TESTED AT [address] [address] CALCIUM, [id number] 21:03:00* Test Item Value Reference Range Interpretation Comments CALCIUM IONIZED (BEAKER) (test code = 698) 1.07 mmol/L 1.12-1.27 L PH, BLOOD (BEAKER) (test code = 1810) 7.52 Check serum Ionized Calcium level after 4 hours after IV Calcium replacement. POCT-GLUCOSE [id number] 20:12:00* Test Item Value Reference Range Interpretation Comments POC-GLUCOSE METER (BEAKER) (test code = 1538) 172 mg/dL 70-110 H TESTED AT [place] [id number] [facility] [address] POCT-GLUCOSE [id number] 18:57:00* Test Item Value Reference Range Interpretation Comments POC-GLUCOSE METER (BEAKER) (test code = 1538) 158 mg/dL 70-[address] [facility] [address] [facility] [address] POCT-GLUCOSE [id number] 18:57:00* Test Item Value Reference Range Interpretation Comments POC-GLUCOSE METER (BEAKER) (test code = 1538) 172 mg/dL 70-110 H TESTED AT [place] [id number] [facility] [address] POCT-GLUCOSE [id number] 18:57:00* Test Item Value Reference Range Interpretation Comments POC-GLUCOSE METER (BEAKER) (test code = 1538) 139 mg/dL 70-110 H TESTED AT [place] [address] [facility] [address] POCT-GLUCOSE [id number] 18:57:00* Test Item Value Reference Range Interpretation Comments POC-GLUCOSE METER (BEAKER) (test code = 1538) 98 mg/dL 70-110 TESTED AT [place] [id number] [facility] [address] BASIC METABOLIC [id number] 18:53:00* Test Item Value Reference Range Interpretation [...] FOR DIALYSIS PATIENTS. Specimen markedly ictericEBV VIRAL [id number] 17:58:00* Test Item Value Reference Range Interpretation [...] (2) real-time PCR amplification and detection with OLIU-3-kzjfyu ic primers and probes. A well-conserved region [...] its performance characteristic s determined by the [facility] Pathology Department, Section of [place] [facility]. It has not been cleared or approved by the U.S. Food and Zach g Administration (FDA), since FDA approval is not required for clinical use of t he test. Validation was done as required by The Clinical Laboratory Improvement Amendments of 1988.POCT-GLUCOSE [id number] 14:21:00* Test Item Value Reference Range Interpretation Comments POC-GLUCOSE METER (BEAKER) (test code = 1538) 102 mg/dL 70-110 TESTED AT [place] [id number] [facility] [address] POCT-GLUCOSE [id number] 12:29:00* Test Item Value Reference Range Interpretation Comments POC-GLUCOSE METER (BEAKER) (test code = 1538) 101 mg/dL 70-110 TESTED AT [address] [address] BASIC METABOLIC [id number] 11:58:00* Test Item Value Reference Range Interpretation [...] NOT APPLICABLE FOR DIALYSIS PATIENTS. Specimen markedly [id number] 11:55:00* Test Item Value Reference Range Interpretation Comments MAGNESIUM (BEAKER) (test code = 627) 2.8 mg/dL 1.6-2.6 H POCT-GLUCOSE [id number] 11:53:00* Test Item Value Reference Range Interpretation Comments POC-GLUCOSE METER (BEAKER) (test code = 1538) 134 mg/dL 70-110 H TESTED AT [address] [address] POCT-GLUCOSE [id number] 11:53:00* Test Item Value Reference Range Interpretation Comments POC-GLUCOSE METER (BEAKER) (test code = 1538) 134 mg/dL 70-110 H TESTED AT [address] [address] POCT-GLUCOSE [id number] 11:53:00* Test Item Value Reference Range Interpretation Comments POC-GLUCOSE METER (BEAKER) (test code = 1538) 161 mg/dL 70-110 H TESTED AT [address] [address] BLOOD GAS, [id number] 11:41:00* Test Item Value Reference Range Interpretation [...] 50.0 % CBC W/PLT COUNT & AUTO [id number] 10:02:00* Test Item Value Reference Range Interpretation [...] Received comment: User comments: Slide comments: POCT-GLUCOSE [id number] 09:09:00* Test Item Value Reference Range Interpretation Comments POC-GLUCOSE METER (BEAKER) (test code = 1538) 159 mg/dL 70-[address] [facility] [address] [facility] [address] POCT-GLUCOSE [id number] 08:09:00* Test Item Value Reference Range Interpretation Comments POC-GLUCOSE METER (BEAKER) (test code = 1538) 178 mg/dL 70-[address] [facility] [address] [facility] [address] RAD, CHEST, 1 VIEW, NON [id number] 07:32:00Reason for exam:->respiratory insufficiencyShould this be performed [...] MDReport Verified Date/Time: 06/14/2018 07:32:08 Reading Location: [facility] Radiology Reading Room [id number] 06:43:00* Test Item Value Reference Range Interpretation Comments PARTIAL THROMBOPLASTIN TIME (BEAKER) (test code = 760) 45.8 seconds 22.5-36.0 H PROTHROMBIN [id number] 06:42:00* Test Item Value Reference Range Interpretation [...] pat ients with mechanical heart valves.BASIC METABOLIC [id number] 06:41:00* Test Item Value Reference Range Interpretation [...] APPLICABLE FOR DIALYSIS PATIENTS. Specimen markedly ictericPOCT-GLUCOSE [id number] 06:32:00* Test Item Value Reference Range Interpretation Comments POC-GLUCOSE METER (BEAKER) (test code = 1538) 175 mg/dL 70-110 H TESTED AT [address] [address] POCT-GLUCOSE [id number] 05:43:00* Test Item Value Reference Range Interpretation Comments POC-GLUCOSE METER (BEAKER) (test code = 1538) 149 mg/dL 70-110 H TESTED AT [address] [address] POCT-GLUCOSE [id number] 05:43:00* Test Item Value Reference Range Interpretation Comments POC-GLUCOSE METER (BEAKER) (test code = 1538) 140 mg/dL 70-110 H TESTED AT [address] [address] BASIC METABOLIC [id number] 04:55:00* Test Item Value Reference Range Interpretation [...] FOR DIALYSIS PATIENTS. Specimen markedly ictericBLOOD GAS, [id number] 04:37:00* Test Item Value Reference Range Interpretation [...] code = 1819) 60.0 % BASIC METABOLIC [id number] 04:35:00* Test Item Value Reference Range Interpretation [...] NOT APPLICABLE FOR DIALYSIS PATIENTS. Specimen markedly [id number] 04:25:00* Test Item Value Reference Range Interpretation Comments MAGNESIUM (BEAKER) (test code = 627) 2.4 mg/dL 1.6-2.6 HEPATIC FUNCTION [id number] 04:25:00* Test Item Value Reference Range Interpretation [...] 347) 119 U/L 6-55 H Specimen markedly [id number] 04:25:00* Test Item Value Reference Range Interpretation Comments AMYLASE (BEAKER) (test code = 349) 80 U/L 25-125 Specimen markedly [id number] 04:25:00* Test Item Value Reference Range Interpretation Comments LIPASE (BEAKER) (test code = 749) 222 U/L 8-78 H Specimen markedly ictericLACTIC ACID, [id number] 04:17:00* Test Item Value Reference Range Interpretation Comments LACTATE BLOOD ARTERIAL (2) (BEAKER) (test code = 2874) 0.8 mmol/L 0.5-2.2 Specimen markedly ictericPOCT-GLUCOSE [id number] 02:31:00* Test Item Value Reference Range Interpretation Comments POC-GLUCOSE METER (BEAKER) (test code = 1538) 98 mg/dL 70-[address] [facility] [address] [facility] [address] POCT-GLUCOSE [id number] 01:45:00* Test Item Value Reference Range Interpretation Comments POC-GLUCOSE METER (BEAKER) (test code = 1538) 120 mg/dL 70-[address] [facility] [address] [facility] [address] POCT-GLUCOSE [id number] 01:45:00* Test Item Value Reference Range Interpretation Comments POC-GLUCOSE METER (BEAKER) (test code = 1538) 171 mg/dL 70-[address] [facility] [address] [facility] [address] CT, CHEST, WITHOUT [id number] 00:56:00FINAL REPORT EXAM: CT of the chest, [...] Ceballosort Verified Date/Time: 06/14/2018 00:56:49 Reading Location: [address] Body Reading Room Amada ctronically signed by: NICOLÁS CEBALLOS MD on 06/14/2018 12:[address], [id number] 00:56:00With PO contrastFINAL REPORT EXAM: CT of [...] MDReport Verified Date/Time: 06/14/2018 00:56:49 Reading Location: [facility] C013Y CT Body Reading Room Amada ctronically signed by: NICOLÁS CEBALLOS MD on 06/14/2018 12:56 AM POCT- GLUCOSE [id number] 23:12:00* Test Item Value Reference Range Interpretation Comments POC-GLUCOSE METER (BEAKER) (test code = 1538) 200 mg/dL 70-[address] [facility] [address] [facility] [address] POCT-GLUCOSE [id number] 23:12:00* Test Item Value Reference Range Interpretation Comments POC-GLUCOSE METER (BEAKER) (test code = 1538) 132 mg/dL 70-[address] [facility] [address] [facility] [address] [id number] 21:11:00* Test Item Value Reference Range Interpretation Comments MAGNESIUM (BEAKER) (test code = 627) 2.5 mg/dL 1.6-2.6 POCT-GLUCOSE [id number] 20:48:00* Test Item Value Reference Range Interpretation Comments POC-GLUCOSE METER (BEAKER) (test code = 1538) 103 mg/dL 70-110 TESTED AT [address] [address] POCT-GLUCOSE [id number] 20:48:00* Test Item Value Reference Range Interpretation Comments POC-GLUCOSE METER (BEAKER) (test code = 1538) 98 mg/dL 70-110 TESTED AT [address] [address] POCT-GLUCOSE [id number] 18:14:00* Test Item Value Reference Range Interpretation Comments POC-GLUCOSE METER (BEAKER) (test code = 1538) 108 mg/dL 70-110 TESTED AT [address] [address] BASIC METABOLIC [id number] 18:09:00* Test Item Value Reference Range Interpretation [...] FOR DIALYSIS PATIENTS. Specimen markedly ictericBLOOD GAS, [id number] 16:57:00* Test Item Value Reference Range Interpretation [...] (test code = 1819) 40.0 % POCT-GLUCOSE [id number] 16:51:00* Test Item Value Reference Range Interpretation Comments POC-GLUCOSE METER (BEAKER) (test code = 1538) 107 mg/dL 70-[address] [facility] [address] [facility] [address] CMV PCR, [id number] 16:28:00* Test Item Value Reference Range Interpretation [...] its performance characteristics determined by [facility] Pathology Department, Section of Molecular Patholog y. It has not been cleared or approved by the U.S. Food and Drug Administration (FDA), since FDA approval is not required for clinical use of the test. Validati on was done as required by The Clinical Laboratory Improvement Amendments of 198 8.POCT-GLUCOSE [id number] 15:09:00* Test Item Value Reference Range Interpretation Comments POC-GLUCOSE METER (BEAKER) (test code = 1538) 119 mg/dL 70-[address] [facility] [address] [facility] [address] POCT-GLUCOSE [id number] 14:43:00* Test Item Value Reference Range Interpretation Comments POC-GLUCOSE METER (BEAKER) (test code = 1538) 129 mg/dL 70-[address] [facility] [address] [facility] [address] BASIC METABOLIC [id number] 13:25:00* Test Item Value Reference Range Interpretation [...] APPLICABLE FOR DIALYSIS PATIENTS. Specimen markedly ictericPOCT-GLUCOSE [id number] 13:23:00* Test Item Value Reference Range Interpretation Comments POC-GLUCOSE METER (BEAKER) (test code = 1538) 172 mg/dL 70-110 H TESTED AT [address] [address] [id number] 13:14:00* Test Item Value Reference Range Interpretation Comments MAGNESIUM (BEAKER) (test code = 627) 2.6 mg/dL 1.6-2.6 Specimen slightly hemolyzed POCT-GLUCOSE [id number] 12:04:00* Test Item Value Reference Range Interpretation Comments POC-GLUCOSE METER (BEAKER) (test code = 1538) 205 mg/dL 70-110 H TESTED AT [address] [address] POCT-GLUCOSE [id number] 11:10:00* Test Item Value Reference Range Interpretation Comments POC-GLUCOSE METER (BEAKER) (test code = 1538) 182 mg/dL 70-110 H TESTED AT [address] [address] BLOOD GAS, [id number] 10:41:00* Test Item Value Reference Range Interpretation [...] (test code = 1819) 100.0 % POCT-GLUCOSE [id number] 09:50:00* Test Item Value Reference Range Interpretation Comments POC-GLUCOSE METER (BEAKER) (test code = 1538) 138 mg/dL 70-110 H TESTED AT [address] [address] POCT-GLUCOSE [id number] 08:44:00* Test Item Value Reference Range Interpretation Comments POC-GLUCOSE METER (BEAKER) (test code = 1538) 98 mg/dL 70-110 TESTED AT [address] [address] BLOOD GAS, [id number] 06:47:00* Test Item Value Reference Range Interpretation [...] (test code = 1819) 80.0 % POCT-GLUCOSE [id number] 06:41:00* Test Item Value Reference Range Interpretation Comments POC-GLUCOSE METER (BEAKER) (test code = 1538) 123 mg/dL 70-110 H TESTED AT [address] [address] POCT-GLUCOSE [id number] 06:41:00* Test Item Value Reference Range Interpretation Comments POC-GLUCOSE METER (BEAKER) (test code = 1538) 121 mg/dL 70-110 H TESTED AT [address] [address] BASIC METABOLIC [id number] 06:25:00* Test Item Value Reference Range Interpretation [...] FOR DIALYSIS PATIENTS. Specimen markedly ictericBASIC METABOLIC [id number] 03:47:00* Test Item Value Reference Range Interpretation [...] NOT APPLICABLE FOR DIALYSIS PATIENTS. Specimen markedly [id number] 03:41:00* Test Item Value Reference Range Interpretation Comments MAGNESIUM (BEAKER) (test code = 627) 2.7 mg/dL 1.6-2.6 H HEPATIC FUNCTION [id number] 03:41:00* Test Item Value Reference Range Interpretation [...] 347) 104 U/L 6-55 H Specimen markedly [id number] 03:39:00* Test Item Value Reference Range Interpretation Comments PARTIAL THROMBOPLASTIN TIME (BEAKER) (test code = 760) 48.3 seconds 22.5-36.0 H PROTHROMBIN [id number] 03:38:00* Test Item Value Reference Range Interpretation [...] pat ients with mechanical heart valves.LACTIC ACID, [id number] 03:31:00* Test Item Value Reference Range Interpretation Comments LACTATE BLOOD ARTERIAL (2) (BEAKER) (test code = 2874) 0.8 mmol/L 0.5-2.2 Specimen markedly ictericCBC W/PLT COUNT & AUTO [id number] 03:24:00 * Test Item Value Reference Range [...] = 2801) 3 % 0-1 H POCT-GLUCOSE [id number] 03:06:00* Test Item Value Reference Range Interpretation Comments POC-GLUCOSE METER (BEAKER) (test code = 1538) 155 mg/dL 70-[address] [facility] [address] [facility] [address] BASIC METABOLIC [id number] 02:44:00* Test Item Value Reference Range Interpretation [...] FOR DIALYSIS PATIENTS. Specimen markedly ictericBLOOD GAS, [id number] 02:08:00* Test Item Value Reference Range Interpretation [...] 100.0 % RAD, CHEST, 1 VIEW, NON [id number] 01:40:00Reason for exam:->decreased lung sounds; possible aspirationShould this be performed at the bedside?->YesFINAL REPORT CLINICAL INDICATION: Decreased lung sounds, concern for aspiration Comparison: 06/12/2018 The cardiomediastinal contours are stable. The lung volumes remain low. Central pulmonary vascular congestion and bilateral parenchymal opacities are unchanged. There is no pneumothorax. Support lines are stable. Signed: Katherine Reich MDReport Verified Date/Time: 06/14/19 01:40:10 Reading Location: [address] Reading Room [facility] signed by: KATHERINE REICH M.D. on 06/13/2018 01:40 AM RAD, ABDOMEN/KUB, 1 VIEW [id number] 01:37:00Reason for exam:->distended abdomenShould this be performed [...] MDReport Verified Date/Time: 06/13/2018 01:37:29 Reading Location: [address] Reading Room -GLUCOSE [id number] 00:36:00* Test Item Value Reference Range Interpretation Comments POC-GLUCOSE METER (BEAKER) (test code = 1538) 192 mg/dL 70-110 H TESTED AT [address] [address] OCCULT BLOOD, [id number] 22:31:00* Test Item Value Reference Range Interpretation Comments FECAL OCCULT BLOOD (BEAKER) (test code = 618) Positive Negative A [id number] 21:12:00* Test Item Value Reference Range Interpretation Comments MAGNESIUM (BEAKER) (test code = 627) 2.4 mg/dL 1.6-2.6 POCT-GLUCOSE [id number] 20:34:00* Test Item Value Reference Range Interpretation Comments POC-GLUCOSE METER (BEAKER) (test code = 1538) 160 mg/dL 70-110 H TESTED AT [place] [id number] [facility] [address] BASIC METABOLIC [id number] 18:27:00* Test Item Value Reference Range Interpretation [...] APPLICABLE FOR DIALYSIS PATIENTS. Specimen markedly ictericPOCT-GLUCOSE [id number] 17:35:00* Test Item Value Reference Range Interpretation Comments POC-GLUCOSE METER (BEAKER) (test code = 1538) 136 mg/dL 70-110 H TESTED AT [address] [address] BLOOD GAS, [id number] 16:12:00* Test Item Value Reference Range Interpretation [...] (test code = 1819) 40.0 % POCT-GLUCOSE [id number] 14:51:00* Test Item Value Reference Range Interpretation Comments POC-GLUCOSE METER (BEAKER) (test code = 1538) 137 mg/dL 70-[address] [facility] [address] [facility] [address] POCT-GLUCOSE [id number] 13:23:00* Test Item Value Reference Range Interpretation Comments POC-GLUCOSE METER (BEAKER) (test code = 1538) 132 mg/dL 70-[address] [facility] [address] [facility] [address] BLOOD GAS, [id number] 13:13:00* Test Item Value Reference Range Interpretation [...] code = 1819) 40.0 % BASIC METABOLIC [id number] 13:08:00* Test Item Value Reference Range Interpretation [...] NOT APPLICABLE FOR DIALYSIS PATIENTS. Specimen markedly [id number] 13:04:00* Test Item Value Reference Range Interpretation Comments MAGNESIUM (BEAKER) (test code = 627) 2.6 mg/dL 1.6-2.6 POCT-GLUCOSE [id number] 12:17:00* Test Item Value Reference Range Interpretation Comments POC-GLUCOSE METER (BEAKER) (test code = 1538) 123 mg/dL 70-110 H TESTED AT [address] [address] POCT-GLUCOSE [id number] 11:33:00* Test Item Value Reference Range Interpretation Comments POC-GLUCOSE METER (BEAKER) (test code = 1538) 133 mg/dL 70-110 H TESTED AT [address] [address] POCT-GLUCOSE [id number] 10:10:00* Test Item Value Reference Range Interpretation Comments POC-GLUCOSE METER (BEAKER) (test code = 1538) 151 mg/dL 70-110 H TESTED AT [address] [address] POCT-GLUCOSE [id number] 09:07:00* Test Item Value Reference Range Interpretation Comments POC-GLUCOSE METER (BEAKER) (test code = 1538) 155 mg/dL 70-110 H TESTED AT [address] [address] POCT-GLUCOSE [id number] 08:05:00* Test Item Value Reference Range Interpretation Comments POC-GLUCOSE METER (BEAKER) (test code = 1538) 143 mg/dL 70-110 H TESTED AT [address] [address] CBC W/PLT COUNT & AUTO [id number] 07:31:00* Test Item Value Reference Range Interpretation [...] LATION PRESENT RAD, CHEST, 1 VIEW, NON [id number] 06:50:00Reason for exam:-> respiratory insufficiencyShould this be [...] MDReport Verified Date/Time: 06/12/2018 06:50:17 Reading Location: [address] Neuro Reading Room Electronically signed by: MD rafaela MO 06/12/2018 06:50 AM POCT-GLUCOSE [id number] 06:23:00* Test Item Value Reference Range Interpretation Comments POC-GLUCOSE METER (BEAKER) (test code = 1538) 161 mg/dL 70-110 H TESTED AT [address] [address] POCT-GLUCOSE [id number] 05:09:00* Test Item Value Reference Range Interpretation Comments POC-GLUCOSE METER (BEAKER) (test code = 1538) 177 mg/dL 70-110 H TESTED AT [address] [address] POCT-GLUCOSE [id number] 05:09:00* Test Item Value Reference Range Interpretation Comments POC-GLUCOSE METER (BEAKER) (test code = 1538) 188 mg/dL 70-110 H TESTED AT [address] [address] BLOOD GAS, [id number] 04:41:00* Test Item Value Reference Range Interpretation [...] (test code = 1819) 50.0 % CALCIUM, [id number] 04:41:00* Test Item Value Reference Range Interpretation Comments CALCIUM IONIZED (BEAKER) (test code = 698) 1.08 mmol/L 1.12-1.27 L PH, BLOOD (BEAKER) (test code = 1810) 7.44 BASIC METABOLIC [id number] 04:24:00* Test Item Value Reference Range Interpretation [...] NOT APPLICABLE FOR DIALYSIS PATIENTS. Specimen markedly [id number] 04:23:00* Test Item Value Reference Range Interpretation Comments PHOSPHORUS (BEAKER) (test code = 604) 5.0 mg/dL 2.3-4.7 H [id number] 04:23:00* Test Item Value Reference Range Interpretation Comments MAGNESIUM (BEAKER) (test code = 627) 2.8 mg/dL 1.6-2.6 H HEPATIC FUNCTION [id number] 04:23:00* Test Item Value Reference Range Interpretation [...] 347) 96 U/L 6-55 H Specimen markedly [id number] 04:22:00* Test Item Value Reference Range Interpretation Comments PARTIAL THROMBOPLASTIN TIME (BEAKER) (test code = 760) 54.7 seconds 22.5-36.0 H PROTHROMBIN [id number] 04:21:00* Test Item Value Reference Range Interpretation [...] pat ients with mechanical heart valves.LACTIC ACID, [id number] 04:15:00* Test Item Value Reference Range Interpretation Comments LACTATE BLOOD ARTERIAL (2) (BEAKER) (test code = 2874) 0.9 mmol/L 0.5-2.2 Specimen slightly hemolyzed Specimen markedly [id number] 02:06:00* Test Item Value Reference Range Interpretation Comments POTASSIUM (BEAKER) (test code = 379) 3.5 meq/L 3.5-5.1 [id number] 02:06:00* Test Item Value Reference Range Interpretation Comments GLUCOSE RANDOM (BEAKER) (test code = 652) 225 mg/dL 70-105 H BASIC METABOLIC [id number] 00:30:00* Test Item Value Reference Range Interpretation [...] APPLICABLE FOR DIALYSIS PATIENTS. Specimen markedly ictericPOCT-GLUCOSE [id number] 00:28:00* Test Item Value Reference Range Interpretation Comments POC-GLUCOSE METER (BEAKER) (test code = 1538) 245 mg/dL 70-[address] [facility] [address] [facility] [address] BLOOD GAS, [id number] 22:23:00* Test Item Value Reference Range Interpretation [...] code = 1819) 50.0 % BASIC METABOLIC [id number] 20:15:00* Test Item Value Reference Range Interpretation [...] NOT APPLICABLE FOR DIALYSIS PATIENTS. Specimen markedly [id number] 20:07:00* Test Item Value Reference Range Interpretation Comments MAGNESIUM (BEAKER) (test code = 627) 2.6 mg/dL 1.6-2.6 RAD, CHEST, 1 VIEW, NON [id number] 19:02:00Reason for exam:->new right IJ lineShould this [...] MDReport Verified Date/Time: 06/11/2018 19:02:45 Reading Location: [address] Consult Reading Room C METABOLIC [id number] 15:15:00* Test Item Value Reference Range Interpretation [...] NOT APPLICABLE FOR DIALYSIS PATIENTS. Specimen markedly [id number] 15:09:00* Test Item Value Reference Range Interpretation Comments MAGNESIUM (BEAKER) (test code = 627) 2.6 mg/dL 1.6-2.6 POCT-GLUCOSE [id number] 13:44:00* Test Item Value Reference Range Interpretation Comments POC-GLUCOSE METER (BEAKER) (test code = 1538) 226 mg/dL 70-[address] [facility] [address] [facility] [address] SPIN/CONCENTRATION [id number] 12:22:00* Test Item Value Reference Range Interpretation Comments CONCENTRATION CHARGED (BEAKER) (test code = 2657) Done RAD, CHEST, 1 VIEW, NON [id number] 07:49:00Reason for exam:->pulmonary edemaShould this be performed [...] Rodriguez Verified Date/Time: 06/11 07:49:11 Reading Location: [facility] Radiology Reading Room Amada ctronically signed by: GELA RODRIGUEZ M.D. on 06/11/2018 07:49 AM LACTIC ACID, [id number] 04:44:00* Test Item Value Reference Range Interpretation Comments LACTATE BLOOD ARTERIAL (2) (BEAKER) (test code = 2874) 0.9 mmol/L 0.5-2.2 Specimen markedly ictericBASIC METABOLIC [id number] 04:39:00* Test Item Value Reference Range Interpretation [...] NOT APPLICABLE FOR DIALYSIS PATIENTS. Specimen markedly [id number] 04:38:00* Test Item Value Reference Range Interpretation Comments PHOSPHORUS (BEAKER) (test code = 604) 6.5 mg/dL 2.3-4.7 H [id number] 04:38:00* Test Item Value Reference Range Interpretation Comments MAGNESIUM (BEAKER) (test code = 627) 2.7 mg/dL 1.6-2.6 H HEPATIC FUNCTION [id number] 04:38:00* Test Item Value Reference Range Interpretation [...] code = 380) 116 U/L 29-20 0 [id number] 04:33:00* Test Item Value Reference Range Interpretation Comments PARTIAL THROMBOPLASTIN TIME (BEAKER) (test code = 760) 50.5 seconds 22.5-36.0 H PROTHROMBIN [id number] 04:32:00* Test Item Value Reference Range Interpretation [...] mechanical heart valves.CBC W/PLT COUNT & AUTO [id number] 04:29:00* Test Item Value Reference Range Interpretation [...] = 2801) 5 % 0-1 H CALCIUM, [id number] 04:29:00* Test Item Value Reference Range Interpretation Comments CALCIUM IONIZED (BEAKER) (test code = 698) 1.05 mmol/L 1.12-1.27 L PH, BLOOD (BEAKER) (test code = 1810) 7.42 BLOOD GAS, [id number] 04:25:00* Test Item Value Reference Range Interpretation [...] code = 1819) 60.0 % BASIC METABOLIC [id number] 22:15:00* Test Item Value Reference Range Interpretation [...] GFR IS NOT APPLICABLE FOR DIALYSIS PATIENTS. [id number] 21:07:00* Test Item Value Reference Range Interpretation Comments MAGNESIUM (BEAKER) (test code = 627) 2.8 mg/dL 1.6-2.6 H Specimen slightly hemolyzed BASIC METABOLIC [id number] 18:32:00* Test Item Value Reference Range Interpretation [...] FOR DIALYSIS PATIENTS. Specimen markedly ictericBASIC METABOLIC [id number] 12:06:00* Test Item Value Reference Range Interpretation [...] NOT APPLICABLE FOR DIALYSIS PATIENTS. Specimen markedly [id number] 11:59:00* Test Item Value Reference Range Interpretation Comments MAGNESIUM (BEAKER) (test code = 627) 2.4 mg/dL 1.6-2.6 POCT-GLUCOSE [id number] 11:58:00* Test Item Value Reference Range Interpretation Comments POC-GLUCOSE METER (BEAKER) (test code = 1538) 143 mg/dL 70-[address] [facility] [address] [facility] [address] BRONCHIAL CULTURE + GRAM [id number] 09:24:00* Test Item Value Reference Range Interpretation Comments CULTURE (BEAKER) (test code = 1095) No growth GRAM STAIN RESULT (BEAKER) (test code = 1123) 1+ WBCs GRAM STAIN RESULT (BEAKER) (test code = 76360) No organisms seen SPUTUM CULTURE + GRAM [id number] 09:24:00* Test Item Value Reference Range Interpretation Comments CULTURE (BEAKER) (test code = 1095) No growth GRAM STAIN RESULT (BEAKER) (test code = 1123) 1+ WBCs GRAM STAIN RESULT (BEAKER) (test code = 15058) 10-15 epithelial dariel ls GRAM STAIN RESULT (BEAKER) (test code = 17958) <1+ gra m positive cocci in pairs and clusters CBC W/PLT COUNT & AUTO [id number] 08:22:00* Test Item Value Reference Range Interpretation [...] PLATELETS SEEN RAD, CHEST, 1 VIEW, NON [id number] 08:07:00Reason for exam:->pulmonary edemaShould this be performed [...] Location: [facility] Reading Room -GLUCOSE [id number] 05:31:00* Test Item Value Reference Range Interpretation Comments POC-GLUCOSE METER (BEAKER) (test code = 1538) 124 mg/dL 70-[address] [facility] [address] [facility] [address] BASIC METABOLIC [id number] 04:24:00* Test Item Value Reference Range Interpretation [...] NOT APPLICABLE FOR DIALYSIS PATIENTS. Specimen markedly [id number] 04:16:00* Test Item Value Reference Range Interpretation Comments PARTIAL THROMBOPLASTIN TIME (BEAKER) (test code = 760) 47.0 seconds 22.5-36.0 H PROTHROMBIN [id number] 04:15:00* Test Item Value Reference Range Interpretation Comments PROTIME (BEAKER) (test code = 759) 16.9 seconds 11.7-14.7 H INR (BEAKER) (test code = 370) 1.3 <=5.9 RECOMMENDED COUMADIN/WARFARIN INR THERAPY RANGESSTANDARD DOSE: 2.0 - 3.0 Inclu herb: PROPHYLAXIS for venous thrombosis, systemic embolization; TREATMENT for giulia ous thrombosis and/or pulmonary embolus.HIGH RISK: Target INR is 2.5-3.5 for pat ients with mechanical heart valves.[id number] 04:12:00* Test Item Value Reference Range Interpretation Comments MAGNESIUM (BEAKER) (test code = 627) 2.5 mg/dL 1.6-2.6 HEPATIC FUNCTION [id number] 04:12:00* Test Item Value Reference Range Interpretation [...] U/L 6-55 H Specimen markedly ictericLACTIC ACID, [id number] 03:59:00* Test Item Value Reference Range Interpretation Comments LACTATE BLOOD ARTERIAL (2) (BEAKER) (test code = 2874) 0.9 mmol/L 0.5-2.2 Specimen markedly ictericBLOOD GAS, [id number] 03:21:00* Test Item Value Reference Range Interpretation [...] (test code = 1819) 60.0 % CALCIUM, [id number] 03:19:00* Test Item Value Reference Range Interpretation Comments CALCIUM IONIZED (BEAKER) (test code = 698) 1.12 mmol/L 1.12-1.27 PH, BLOOD (BEAKER) (test code = 1810) 7.44 Check serum Ionized Calcium level after 4 hours after IV Calcium replacement. BASIC METABOLIC [id number] 00:53:00* Test Item Value Reference Range Interpretation [...] APPLICABLE FOR DIALYSIS PATIENTS. Specimen markedly ictericPOCT-GLUCOSE [id number] 00:29:00* Test Item Value Reference Range Interpretation Comments POC-GLUCOSE METER (BEAKER) (test code = 1538) 176 mg/dL 70-[address] [facility] [address] [facility] [address] POCT-GLUCOSE [id number] 21:27:00* Test Item Value Reference Range Interpretation Comments POC-GLUCOSE METER (BEAKER) (test code = 1538) 134 mg/dL 70-[address] [facility] [address] [facility] [address] [id number] 20:56:00* Test Item Value Reference Range Interpretation Comments MAGNESIUM (BEAKER) (test code = 627) 2.2 mg/dL 1.6-2.6 CALCIUM, [id number] 20:46:00* Test Item Value Reference Range Interpretation Comments CALCIUM IONIZED (BEAKER) (test code = 698) 1.08 mmol/L 1.12-1.27 L PH, BLOOD (BEAKER) (test code = 1810) 7.44 BLOOD GAS, [id number] 20:46:00* Test Item Value Reference Range Interpretation [...] (test code = 1819) 60.0 % POCT-GLUCOSE [id number] 20:20:00* Test Item Value Reference Range Interpretation Comments POC-GLUCOSE METER (BEAKER) (test code = 1538) 142 mg/dL 70-110 H TESTED AT [address] [address] BASIC METABOLIC [id number] 18:55:00* Test Item Value Reference Range Interpretation [...] PATIENTS. Specimen markedly ictericRAD, ABDOMEN/KUB, 1 VIEW [id number] 17:56:00Reason for exam:->feeding tube placement.FINAL REPORT CLINICAL [...] MDReport Verified Date/Time: 06/09/2018 17:56:44 Reading Location: [address] Reading Room -GLUCOSE [id number] 17:49:00* Test Item Value Reference Range Interpretation Comments POC-GLUCOSE METER (BEAKER) (test code = 1538) 131 mg/dL 70-110 H TESTED AT [place] [id number] [facility] [address] POCT-GLUCOSE [id number] 16:36:00* Test Item Value Reference Range Interpretation Comments POC-GLUCOSE METER (BEAKER) (test code = 1538) 112 mg/dL 70-110 H TESTED AT [place] [id number] [facility] [address] POCT-GLUCOSE [id number] 14:37:00* Test Item Value Reference Range Interpretation Comments POC-GLUCOSE METER (BEAKER) (test code = 1538) 88 mg/dL 70-110 TESTED AT [place] [id number] [facility] [address] POCT-GLUCOSE [id number] 12:48:00* Test Item Value Reference Range Interpretation Comments POC-GLUCOSE METER (BEAKER) (test code = 1538) 104 mg/dL 70-[address] [facility] [address] [place] [address] [id number] 12:46:00* Test Item Value Reference Range Interpretation Comments MAGNESIUM (BEAKER) (test code = 627) 2.3 mg/dL 1.6-2.6 BASIC METABOLIC [id number] 12:46:00* Test Item Value Reference Range Interpretation [...] NOT APPLICABLE FOR DIALYSIS PATIENTS. HEMOGLOBIN AND [id number] 11:59:00* Test Item Value Reference Range Interpretation Comments HEMOGLOBIN (BEAKER) (test code = 410) 8.0 GM/DL 13.7-17.5 L HEMATOCRIT (BEAKER) (test code = 411) 24.8 % 40.1-51.0 L BLOOD GAS, [id number] 11:29:00* Test Item Value Reference Range Interpretation [...] code = 1819) 60.0 % BASIC METABOLIC [id number] 07:54:00* Test Item Value Reference Range Interpretation [...] FOR DIALYSIS PATIENTS. Specimen markedly ictericBLOOD GAS, [id number] 06:45:00* Test Item Value Reference Range Interpretation [...] code = 1819) 75.0 % BASIC METABOLIC [id number] 06:44:00* Test Item Value Reference Range Interpretation [...] APPLICABLE FOR DIALYSIS PATIENTS. Specimen markedly ictericPOCT-GLUCOSE [id number] 06:22:00* Test Item Value Reference Range Interpretation Comments POC-GLUCOSE METER (BEAKER) (test code = 1538) 145 mg/dL 70-[address] [facility] [address] [facility] [address] [id number] 06:17:00* Test Item Value Reference Range Interpretation Comments MAGNESIUM (BEAKER) (test code = 627) 2.2 mg/dL 1.6-2.6 HEPATIC FUNCTION [id number] 06:17:00* Test Item Value Reference Range Interpretation [...] U/L 6-55 H Specimen markedly ictericBLOOD GAS, [id number] 06:04:00* Test Item Value Reference Range Interpretation [...] 75.0 % RAD, CHEST, 1 VIEW, NON [id number] 05:48:00Reason for exam:->pulmonary edemaShould this be performed [...] MDReport Verified Date/Time: 06/09/2018 05:48:52 Reading Location: [address] Neuro Reading Room D GAS, [id number] 04:53:00* Test Item Value Reference Range Interpretation [...] (test code = 1819) 75.0 % CALCIUM, [id number] 04:52:00* Test Item Value Reference Range Interpretation Comments CALCIUM IONIZED (BEAKER) (test code = 698) 1.08 mmol/L 1.12-1.27 L PH, BLOOD (BEAKER) (test code = 1810) 7.55 POCT-GLUCOSE [id number] 04:32:00* Test Item Value Reference Range Interpretation Comments POC-GLUCOSE METER (BEAKER) (test code = 1538) 144 mg/dL 70-110 H TESTED AT [address] [address] CBC W/PLT COUNT & AUTO [id number] 04:27:00* Test Item Value Reference Range Interpretation [...] code = 2801) 3 % 0-1 H [id number] 04:21:00* Test Item Value Reference Range Interpretation Comments PARTIAL THROMBOPLASTIN TIME (BEAKER) (test code = 760) 49.5 seconds 22.5-36.0 H PROTHROMBIN [id number] 04:20:00* Test Item Value Reference Range Interpretation Comments PROTIME (BEAKER) (test code = 759) 17.8 seconds 11.7-14.7 H INR (BEAKER) (test code = 370) 1.5 <=5.9 RECOMMENDED COUMADIN/WARFARIN INR THERAPY RANGESSTANDARD DOSE: 2.0 - 3.0 Inclu herb: PROPHYLAXIS for venous thrombosis, systemic embolization; TREATMENT for giulia ous thrombosis and/or pulmonary embolus.HIGH RISK: Target INR is 2.5-3.5 for pat ients with mechanical heart valves.POCT-GLUCOSE [id number] 03:44:00* Test Item Value Reference Range Interpretation Comments POC-GLUCOSE METER (BEAKER) (test code = 1538) 147 mg/dL 70-110 H TESTED AT [address] [address] BASIC METABOLIC [id number] 03:13:00* Test Item Value Reference Range Interpretation [...] APPLICABLE FOR DIALYSIS PATIENTS. Specimen markedly ictericPOCT-GLUCOSE [id number] 02:34:00* Test Item Value Reference Range Interpretation Comments POC-GLUCOSE METER (BEAKER) (test code = 1538) 158 mg/dL 70-110 H TESTED AT [address] [address] POCT-GLUCOSE [id number] 01:37:00* Test Item Value Reference Range Interpretation Comments POC-GLUCOSE METER (BEAKER) (test code = 1538) 158 mg/dL 70-110 H TESTED AT [address] [address] POCT-GLUCOSE [id number] 23:59:00* Test Item Value Reference Range Interpretation Comments POC-GLUCOSE METER (BEAKER) (test code = 1538) 150 mg/dL 70-110 H TESTED AT [address] [address] [id number] 22:28:00* Test Item Value Reference Range Interpretation Comments MAGNESIUM (BEAKER) (test code = 627) 2.4 mg/dL 1.6-2.6 Specimen slightly hemolyzed Check Serum Potassium level 2 hours after oral potassium replacement completed o r 30 min after intravenous potassium replacement.[id number] 21:44:00* Test Item Value Reference Range Interpretation Comments POTASSIUM (BEAKER) (test code = 379) 3.6 meq/L 3.5-5.1 Specimen slightly hemolyzed Check Serum Potassium level 2 hours after oral potassium replacement completed o r 30 min after intravenous potassium replacement.CALCIUM, [id number] 21:20:00* Test Item Value Reference Range Interpretation Comments CALCIUM IONIZED (BEAKER) (test code = 698) 1.06 mmol/L 1.12-1.27 L PH, BLOOD (BEAKER) (test code = 1810) 7.52 Check serum Ionized Calcium level after 4 hours after IV Calcium replacement. BASIC METABOLIC [id number] 20:46:00* Test Item Value Reference Range Interpretation [...] APPLICABLE FOR DIALYSIS PATIENTS. Specimen markedly ictericPOCT-GLUCOSE [id number] 20:42:00* Test Item Value Reference Range Interpretation Comments POC-GLUCOSE METER (BEAKER) (test code = 1538) 158 mg/dL 70-[address] [facility] [address] [facility] [address] BLOOD [id number] 20:01:00* Test Item Value Reference Range Interpretation Comments CULTURE (BEAKER) (test code = 1095) No growth in 5 days BLOOD [id number] 20:01:00* Test Item Value Reference Range Interpretation Comments CULTURE (BEAKER) (test code = 1095) No growth in 5 days BLOOD GAS, [id number] 18:23:00* Test Item Value Reference Range Interpretation [...] (test code = 1819) 75.0 % POCT-GLUCOSE [id number] 18:21:00* Test Item Value Reference Range Interpretation Comments POC-GLUCOSE METER (BEAKER) (test code = 1538) 145 mg/dL 70-[address] [facility] [address] [facility] [address] POCT-GLUCOSE [id number] 18:21:00* Test Item Value Reference Range Interpretation Comments POC-GLUCOSE METER (BEAKER) (test code = 1538) 122 mg/dL 70-[address] [facility] [address] [facility] [address] CORTISOL,60 [id number] 18:04:00* Test Item Value Reference Range Interpretation [...] a study by Debbie et al ([facility] 2000,283(8):7595-45), the ACTH Stimulation Test provides important prognostic [...] level 60 minutes after cosyntropin administration. CORTISOL,30 [id number] 17:15:00* Test Item Value Reference Range Interpretation [...] a study by Debbie et al ([facility] 2000,283(8):6256-45), the ACTH Stimulation Test provides important prognostic [...] level 60 minutes after cosyntropin administration.POCT- GLUCOSE [id number] 15:59:00* Test Item Value Reference Range Interpretation Comments POC-GLUCOSE METER (BEAKER) (test code = 1538) 162 mg/dL 70-[address] [facility] [address] [facility] [address] CORTISOL,[id number] 14:41:00* Test Item Value Reference Range Interpretation [...] a study by Debbie et al ([facility] 2000,283(5):2973-18), the ACTH Stimulation Test provides important prognostic [...] level 60 minutes after cosyntropin administration.POCT- GLUCOSE [id number] 13:55:00* Test Item Value Reference Range Interpretation Comments POC-GLUCOSE METER (BEAKER) (test code = 1538) 158 mg/dL 70-[address] [facility] [address] [facility] [address] POCT-GLUCOSE [id number] 13:55:00* Test Item Value Reference Range Interpretation Comments POC-GLUCOSE METER (BEAKER) (test code = 1538) 117 mg/dL 70-[address] [facility] [address] [facility] [address] BASIC METABOLIC [id number] 13:17:00* Test Item Value Reference Range Interpretation [...] NOT APPLICABLE FOR DIALYSIS PATIENTS. Specimen markedly [id number] 13:13:00* Test Item Value Reference Range Interpretation Comments MAGNESIUM (BEAKER) (test code = 627) 2.5 mg/dL 1.6-2.6 POCT-GLUCOSE [id number] 12:15:00* Test Item Value Reference Range Interpretation Comments POC-GLUCOSE METER (BEAKER) (test code = 1538) 139 mg/dL 70-110 H TESTED AT [address] [address] BLOOD GAS, [id number] 11:28:00* Test Item Value Reference Range Interpretation [...] (BEAKER) (test code = 1819) 75.0 % [id number] 09:54:00* Test Item Value Reference Range Interpretation Comments MAGNESIUM (BEAKER) (test code = 627) 2.5 mg/dL 1.6-2.6 Specimen slightly hemolyzed CALCIUM, [id number] 09:22:00* Test Item Value Reference Range Interpretation Comments CALCIUM IONIZED (BEAKER) (test code = 698) 1.08 mmol/L 1.12-1.27 L PH, BLOOD (BEAKER) (test code = 1810) 7.48 Check serum Ionized Calcium level after 4 hours after IV Calcium replacement.CT, CHEST, WITHOUT [id number] 09:01:00FINAL REPORT CT scan of the chest, [...] MDReport Verified Date/Time: 06/08/2018 09:01:11 Reading Location: [place] [address] Ortho Consult Reading Room , [id number] 09:01:00FINAL REPORT CT scan of the chest, [...] Sloaneport Verified Date/Time: 06/08/2018 09:01:11 Reading Location: [place] [address] Ortho Consult Reading Room -GLUCOSE [id number] 06:37:00* Test Item Value Reference Range Interpretation Comments POC-GLUCOSE METER (BEAKER) (test code = 1538) 142 mg/dL 70-[address] [facility] [address] [facility] [address] BLOOD GAS, [id number] 06:34:00* Test Item Value Reference Range Interpretation [...] (BEAKER) (test code = 1819) 90.0 % [id number] 06:11:00* Test Item Value Reference Range Interpretation Comments PARTIAL THROMBOPLASTIN TIME (BEAKER) (test code = 760) 54.2 seconds 22.5-36.0 H PROTHROMBIN [id number] 06:10:00* Test Item Value Reference Range Interpretation [...] pat ients with mechanical heart valves.HEPATIC FUNCTION [id number] 05:51:00* Test Item Value Reference Range Interpretation [...] U/L 6-55 H Specimen markedly ictericBASIC METABOLIC [id number] 05:51:00* Test Item Value Reference Range Interpretation [...] APPLICABLE FOR DIALYSIS PATIENTS. Specimen markedly ictericPOCT-GLUCOSE [id number] 05:43:00* Test Item Value Reference Range Interpretation Comments POC-GLUCOSE METER (BEAKER) (test code = 1538) 140 mg/dL 70-[address] [facility] [address] [facility] [address] [id number] 05:36:00* Test Item Value Reference Range Interpretation Comments MAGNESIUM (BEAKER) (test code = 627) 2.3 mg/dL 1.6-2.6 [id number] 05:25:00* Test Item Value Reference Range Interpretation Comments PHOSPHORUS (BEAKER) (test code = 604) 4.9 mg/dL 2.3-4.7 H Specimen slightly hemolyzed Check Serum Phosphorus level 4 hours after IV phosphorus replacement or 8 hours after PO replacement completed.POCT-GLUCOSE [id number] 04:20:00* Test Item Value Reference Range Interpretation Comments POC-GLUCOSE METER (BEAKER) (test code = 1538) 153 mg/dL 70-110 H TESTED AT [place] [id number] [facility] [address] RAD, CHEST, 1 VIEW, NON [id number] 04:10:00Reason for exam:->s/p intubation FINAL REPORT CLINICAL [...] V erified Date/Time: 06/08/2018 04:10:15 Reading Location: [address] Reading Room W/PLT COUNT & AUTO [id number] 03:53:00* Test Item Value Reference Range Interpretation [...] = 2801) 2 % 0-1 H CALCIUM, [id number] 02:54:00* Test Item Value Reference Range Interpretation Comments CALCIUM IONIZED (BEAKER) (test code = 698) 1.09 mmol/L 1.12-1.27 L PH, BLOOD (BEAKER) (test code = 1810) 7.45 Check serum Ionized Calcium level after 4 hours after IV Calcium replacement. BLOOD GAS, [id number] 02:54:00* Test Item Value Reference Range Interpretation [...] 100.0 % RAD, CHEST, 1 VIEW, NON [id number] 02:16:00Reason for exam:->tachypneaFINAL REPORT CLINICAL INDICATION: Kidney [...] Verified Date/Time: 0 06/08/2018 02:16:21 Reading Location: [address] Reading Room E lectronically signed by: KATHERINE REICH M.D. on 06/08/2018 02:16 AM BASIC METABOLIC [id number] 01:44:00* Test Item Value Reference Range Interpretation [...] APPLICABLE FOR DIALYSIS PATIENTS. Specimen markedly ictericPOCT-GLUCOSE [id number] 01:18:00* Test Item Value Reference Range Interpretation Comments POC-GLUCOSE METER (BEAKER) (test code = 1538) 122 mg/dL 70-110 H TESTED AT [address] [address] BLOOD GAS, [id number] 01:03:00* Test Item Value Reference Range Interpretation [...] (test code = 1819) 100.0 % POCT-GLUCOSE [id number] 00:19:00* Test Item Value Reference Range Interpretation Comments POC-GLUCOSE METER (BEAKER) (test code = 1538) 136 mg/dL 70-[address] [facility] [address] [facility] [address] BLOOD GAS, [id number] 23:19:00* Test Item Value Reference Range Interpretation [...] (test code = 1819) 40.0 % POCT-GLUCOSE [id number] 22:58:00* Test Item Value Reference Range Interpretation Comments POC-GLUCOSE METER (BEAKER) (test code = 1538) 128 mg/dL 70-[address] [facility] [address] [facility] [address] POCT-GLUCOSE [id number] 22:00:00* Test Item Value Reference Range Interpretation Comments POC-GLUCOSE METER (BEAKER) (test code = 1538) 108 mg/dL 70-110 TESTED AT [place] [id number] [facility] [address] BASIC METABOLIC [id number] 21:50:00* Test Item Value Reference Range Interpretation [...] NOT APPLICABLE FOR DIALYSIS PATIENTS. Specimen markedly [id number] 21:38:00* Test Item Value Reference Range Interpretation Comments MAGNESIUM (BEAKER) (test code = 627) 2.0 mg/dL 1.6-2.6 CALCIUM, [id number] 21:15:00* Test Item Value Reference Range Interpretation Comments CALCIUM IONIZED (BEAKER) (test code = 698) 1.12 mmol/L 1.12-1.27 PH, BLOOD (BEAKER) (test code = 1810) 7.51 Check serum Ionized Calcium level after 4 hours after IV Calcium replacement. POCT-GLUCOSE [id number] 20:58:00* Test Item Value Reference Range Interpretation Comments POC-GLUCOSE METER (BEAKER) (test code = 1538) 97 mg/dL 70-110 TESTED AT [address] [address] POCT-GLUCOSE [id number] 19:42:00* Test Item Value Reference Range Interpretation Comments POC-GLUCOSE METER (BEAKER) (test code = 1538) 101 mg/dL 70-110 TESTED AT [address] [address] POCT-GLUCOSE [id number] 18:42:00* Test Item Value Reference Range Interpretation Comments POC-GLUCOSE METER (BEAKER) (test code = 1538) 97 mg/dL 70-110 TESTED AT [address] [address] BLOOD GAS, [id number] 16:56:00* Test Item Value Reference Range Interpretation [...] (test code = 1819) 100.0 % POCT-GLUCOSE [id number] 16:45:00* Test Item Value Reference Range Interpretation Comments POC-GLUCOSE METER (BEAKER) (test code = 1538) 149 mg/dL 70-[address] [facility] [address] [facility] [address] POCT-GLUCOSE [id number] 15:25:00* Test Item Value Reference Range Interpretation Comments POC-GLUCOSE METER (BEAKER) (test code = 1538) 74 mg/dL 70-110 TESTED AT [place] [id number] [facility] [address] POCT-GLUCOSE [id number] 14:31:00* Test Item Value Reference Range Interpretation Comments POC-GLUCOSE METER (BEAKER) (test code = 1538) 129 mg/dL 70-110 H TESTED AT [address] [address] [id number] 13:46:00* Test Item Value Reference Range Interpretation Comments MAGNESIUM (BEAKER) (test code = 627) 1.8 mg/dL 1.6-2.6 BASIC METABOLIC [id number] 13:46:00* Test Item Value Reference Range Interpretation [...] APPLICABLE FOR DIALYSIS PATIENTS. Specimen markedly ictericPOCT-GLUCOSE [id number] 13:03:00* Test Item Value Reference Range Interpretation Comments POC-GLUCOSE METER (BEAKER) (test code = 1538) 182 mg/dL 70-[address] [facility] [address] [place] [address] ANTI-MITOCHONDRIAL AB, REFLEX TO [id number] 11:38:00* Test Item Value Reference Range Interpretation Comments SCAN RESULT (test code = 9815212) CBC W/PLT COUNT & AUTO [id number] 11:36:00* Test Item Value Reference Range Interpretation [...] Received comment: User comments: Slide comments: POCT-GLUCOSE [id number] 11:35:00* Test Item Value Reference Range Interpretation Comments POC-GLUCOSE METER (BEAKER) (test code = 1538) 128 mg/dL 70-[address] [facility] [address] [facility] [address] POCT-GLUCOSE [id number] 11:13:00* Test Item Value Reference Range Interpretation Comments POC-GLUCOSE METER (BEAKER) (test code = 1538) 97 mg/dL 70-[address] [facility] [address] [facility] [address] POCT-GLUCOSE [id number] 11:13:00* Test Item Value Reference Range Interpretation Comments POC-GLUCOSE METER (BEAKER) (test code = 1538) 68 mg/dL 70-[address] [facility] [address] [facility] [address] BLOOD GAS, [id number] 10:41:00* Test Item Value Reference Range Interpretation [...] code = 1819) 100.0 % CATHETER TIP [id number] 09:30:00* Test Item Value Reference Range Interpretation Comments CULTURE (BEAKER) (test code = 1095) No growth BLOOD GAS, [id number] 08:13:00* Test Item Value Reference Range Interpretation [...] (test code = 1819) 65.0 % POCT-GLUCOSE [id number] 07:48:00* Test Item Value Reference Range Interpretation Comments POC-GLUCOSE METER (BEAKER) (test code = 1538) 127 mg/dL 70-110 H TESTED AT [place] [id number] [facility] [address] RAD, CHEST, 1 VIEW, NON [id number] 07:37:00Reason for exam:->resp failureShould this be performed [...] Garcia Verified Date/Time: 06/07/2018 07:37:40 Reading Location: [facility] Radiology Reading Room -GLUCOSE METER 2018-06-07 06:32:00* Test Item Value Reference Range Interpretation Comments POC-GLUCOSE METER (BEAKER) (test code = 1538) 165 mg/dL 70-110 H TESTED AT [address] [address] BLOOD GAS, [id number] 05:35:00* Test Item Value Reference Range Interpretation [...] (test code = 1819) 60.0 % CALCIUM, [id number] 05:35:00* Test Item Value Reference Range Interpretation Comments CALCIUM IONIZED (BEAKER) (test code = 698) 0.96 mmol/L 1.12-1.27 L PH, BLOOD (BEAKER) (test code = 1810) 7.45 HEPATIC FUNCTION [id number] 05:32:00* Test Item Value Reference Range Interpretation [...] 103 U/L 6-55 H Specimen markedly ictericPOCT-GLUCOSE [id number] 05:18:00* Test Item Value Reference Range Interpretation Comments POC-GLUCOSE METER (BEAKER) (test code = 1538) 182 mg/dL 70-[address] [facility] [address] [facility] [address] BASIC METABOLIC [id number] 05:17:00* Test Item Value Reference Range Interpretation [...] FOR DIALYSIS PATIENTS. Specimen markedly ictericLACTIC ACID, [id number] 04:58:00* Test Item Value Reference Range Interpretation Comments LACTATE BLOOD ARTERIAL (2) (BEAKER) (test code = 2874) 1.2 mmol/L 0.5-2.2 Specimen markedly [id number] 04:50:00* Test Item Value Reference Range Interpretation Comments PARTIAL THROMBOPLASTIN TIME (BEAKER) (test code = 760) 43.5 seconds 22.5-36.0 H PROTHROMBIN [id number] 04:49:00* Test Item Value Reference Range Interpretation Comments PROTIME (BEAKER) (test code = 759) 18.1 seconds 11.7-14.7 H INR (BEAKER) (test code = 370) 1.5 <=5.9 RECOMMENDED COUMADIN/WARFARIN INR THERAPY RANGESSTANDARD DOSE: 2.0 - 3.0 Inclu herb: PROPHYLAXIS for venous thrombosis, systemic embolization; TREATMENT for giulia ous thrombosis and/or pulmonary embolus.HIGH RISK: Target INR is 2.5-3.5 for pat ients with mechanical heart valves.POCT-GLUCOSE [id number] 04:16:00* Test Item Value Reference Range Interpretation Comments POC-GLUCOSE METER (BEAKER) (test code = 1538) 180 mg/dL 70-110 H TESTED AT [address] [address] POCT-GLUCOSE [id number] 03:20:00* Test Item Value Reference Range Interpretation Comments POC-GLUCOSE METER (BEAKER) (test code = 1538) 171 mg/dL 70-110 H TESTED AT [address] [address] POCT-GLUCOSE [id number] 02:44:00* Test Item Value Reference Range Interpretation Comments POC-GLUCOSE METER (BEAKER) (test code = 1538) 154 mg/dL 70-110 H TESTED AT [address] [address] POCT-GLUCOSE [id number] 01:31:00* Test Item Value Reference Range Interpretation Comments POC-GLUCOSE METER (BEAKER) (test code = 1538) 140 mg/dL 70-110 H TESTED AT [address] [address] BASIC METABOLIC [id number] 01:02:00* Test Item Value Reference Range Interpretation [...] APPLICABLE FOR DIALYSIS PATIENTS. Specimen markedly ictericPOCT-GLUCOSE [id number] 00:57:00* Test Item Value Reference Range Interpretation Comments POC-GLUCOSE METER (BEAKER) (test code = 1538) 173 mg/dL 70-110 H TESTED AT [address] [address] POCT-GLUCOSE [id number] 23:27:00* Test Item Value Reference Range Interpretation Comments POC-GLUCOSE METER (BEAKER) (test code = 1538) 155 mg/dL 70-110 H TESTED AT [address] [address] BASIC METABOLIC [id number] 22:38:00* Test Item Value Reference Range Interpretation [...] NOT APPLICABLE FOR DIALYSIS PATIENTS. Specimen markedly [id number] 22:37:00* Test Item Value Reference Range Interpretation Comments MAGNESIUM (BEAKER) (test code = 627) 2.0 mg/dL 1.6-2.6 BLOOD GAS, [id number] 22:18:00* Test Item Value Reference Range Interpretation [...] (test code = 1819) 60.0 % CALCIUM, [id number] 22:15:00* Test Item Value Reference Range Interpretation Comments CALCIUM IONIZED (BEAKER) (test code = 698) 1.05 mmol/L 1.12-1.27 L PH, BLOOD (BEAKER) (test code = 1810) 7.46 POCT-GLUCOSE [id number] 22:08:00* Test Item Value Reference Range Interpretation Comments POC-GLUCOSE METER (BEAKER) (test code = 1538) 138 mg/dL 70-110 H TESTED AT [address] [address] POCT-GLUCOSE [id number] 21:16:00* Test Item Value Reference Range Interpretation Comments POC-GLUCOSE METER (BEAKER) (test code = 1538) 158 mg/dL 70-110 H TESTED AT [address] [address] [id number] 21:03:00* Test Item Value Reference Range Interpretation Comments POTASSIUM (BEAKER) (test code = 379) 3.8 meq/L 3.5-5.1 Check Serum Potassium level 2 hours after oral potassium replacement completed o r 30 min after intravenous potassium replacement.[id number] 21:03:00* Test Item Value Reference Range Interpretation Comments MAGNESIUM (BEAKER) (test code = 627) 2.0 mg/dL 1.6-2.6 Check Serum Potassium level 2 hours after oral potassium replacement completed o r 30 min after intravenous potassium replacement.POCT-GLUCOSE [id number] 20:15:00* Test Item Value Reference Range Interpretation Comments POC-GLUCOSE METER (BEAKER) (test code = 1538) 161 mg/dL 70-110 H TESTED AT [address] [address] POCT-GLUCOSE [id number] 20:15:00* Test Item Value Reference Range Interpretation Comments POC-GLUCOSE METER (BEAKER) (test code = 1538) 113 mg/dL 70-110 H TESTED AT [address] [address] POCT-GLUCOSE [id number] 19:33:00* Test Item Value Reference Range Interpretation Comments POC-GLUCOSE METER (BEAKER) (test code = 1538) 169 mg/dL 70-110 H TESTED AT [address] [address] [id number] 17:52:00* Test Item Value Reference Range Interpretation Comments CORTISOL, TOTAL (BEAKER) (test code = 2755) 23.9 ug/dL 3.7-19.4 H C. DIFFICILE GDH [id number] 17:45:00* Test Item Value Reference Range Interpretation Comments CDT TOXIN (test code = 2636111393) Negative Negative CDT GDH ANTIGEN (test code = 3097752583) Positive Negative A C. difficile present but toxin not detected. Indicates colonization with non-toxigenic strain or level of toxin below detectable levels. No need for enteric isolation. Treatment is rarely needed (only when strong clinical suspicion for Clostridium difficile infection) Testing performed by [employer] Rapid Cassette Assay. For GDH, published sensitivity of the assay is 98.7% compared to cytotoxicity testing. For Toxin AB, publishe d sensitivity is 87.8% and specificity 99.4% compared to cytotoxicity testing.Ve rification of kit performance was done by the [facility] Microbiology Lab prior to cl inical use.BASIC METABOLIC [id number] 16:48:00* Test Item Value Reference Range Interpretation [...] APPLICABLE FOR DIALYSIS PATIENTS. Specimen markedly ictericPOCT-GLUCOSE [id number] 15:10:00* Test Item Value Reference Range Interpretation Comments POC-GLUCOSE METER (BEAKER) (test code = 1538) 78 mg/dL 70-[address] [facility] [address] [facility] [address] TROPONIN [id number] 13:26:00* Test Item Value Reference Range Interpretation [...] acidosis, acute neurological disease, and per sistent tachyarrhythmia.[id number] 13:14:00* Test Item Value Reference Range Interpretation [...] 0.50 MG/L FEU, the Negative Predictive Value (DIRECTOR OF PRECLINICAL RESEARCH V) regarding the exclusion of thrombosis is within 95-100% range.LACTIC ACID, [id number] 13:12:00* Test Item Value Reference Range Interpretation Comments LACTATE BLOOD ARTERIAL (2) (BEAKER) (test code = 2874) 1.3 mmol/L 0.5-2.2 Specimen markedly [id number] 12:57:00* Test Item Value Reference Range Interpretation Comments MAGNESIUM (BEAKER) (test code = 627) 2.1 mg/dL 1.6-2.6 POCT-GLUCOSE [id number] 12:21:00* Test Item Value Reference Range Interpretation Comments POC-GLUCOSE METER (BEAKER) (test code = 1538) 162 mg/dL 70-[address] [facility] [address] [facility] [address] BLOOD [id number] 12:01:00* Test Item Value Reference Range Interpretation Comments CULTURE (BEAKER) (test code = 1095) No growth in 5 days BLOOD [id number] 12:01:00* Test Item Value Reference Range Interpretation Comments CULTURE (BEAKER) (test code = 1095) No growth in 5 days YARI ANTIGEN WITH REFLEX TO [id number] 11:08:00* Test Item Value Reference Range Interpretation Comments YARI ANTIGEN (BEAKER) (test code = 1782) Positive YARI ANTIGEN [id number] 11:08:00* Test Item Value Reference Range Interpretation Comments YARI ANTIGEN TITER (BEAKER) (test code = 737) :4 POCT-GLUCOSE [id number] 11:00:00* Test Item Value Reference Range Interpretation Comments POC-GLUCOSE METER (BEAKER) (test code = 1538) 153 mg/dL 70-[address] [facility] [address] [facility] [address] RAD, CHEST, 1 VIEW, NON [id number] 10:38:00Reason for exam:->oxygen desaturation in setting of [...] MDReport Verified Date/Time: 06/06/2018 10:38:12 Reading Location: [facility] Radiology Reading Room -NUCLEAR ANTIBODY (TOM)2018-06-06 [...] (BEAKER) (test code = 1819) 100.0 % [id number] 09:37:00* Test Item Value Reference Range Interpretation Comments LIPASE (BEAKER) (test code = 749) 6 U/L 8-78 L Specimen markedly ictericHEPATIC FUNCTION [id number] 09:37:00* Test Item Value Reference Range Interpretation [...] 347) 105 U/L 6-55 H Specimen markedly [id number] 09:36:00* Test Item Value Reference Range Interpretation Comments AMYLASE (BEAKER) (test code = 349) 17 U/L 25-125 L Specimen markedly [id number] 09:24:00* Test Item Value Reference Range Interpretation Comments CORTISOL, TOTAL (BEAKER) (test code = 2755) 19.9 ug/dL 3.7-19.4 H SPUTUM CULTURE + GRAM [id number] 08:59:00* Test Item Value Reference Range Interpretation Comments CULTURE (BEAKER) (test code = 1095) No growth GRAM STAIN RESULT (BEAKER) (test code = 1123) 3+ WBCs GRAM STAIN RESULT (BEAKER) (test code = 92756) 0-5 epithelial cells GRAM STAIN RESULT (BEAKER) (test code = 43697) No organisms seen BRONCHIAL CULTURE + GRAM [id number] 08:58:00* Test Item Value Reference Range Interpretation Comments CULTURE (BEAKER) (test code = 1095) <1+ Normal respiratory chase pr esent GRAM STAIN RESULT (BEAKER) (test code = 1123) 4+ WBCs GRAM STAIN RESULT (BEAKER) (test code = 19314) No organisms seen BRONCHIAL CULTURE + GRAM [id number] 08:58:00* Test Item Value Reference Range Interpretation Comments CULTURE (BEAKER) (test code = 1095) No growth GRAM STAIN RESULT (BEAKER) (test code = 1123) 1+ WBCs GRAM STAIN RESULT (BEAKER) (test code = 11253) No organisms seen POCT-GLUCOSE [id number] 08:15:00* Test Item Value Reference Range Interpretation Comments POC-GLUCOSE METER (BEAKER) (test code = 1538) 117 mg/dL 70-[address] [facility] [address] [facility] [address] CBC W/PLT COUNT & AUTO [id number] 07:36:00* Test Item Value Reference Range Interpretation [...] comment: User comments: Slide comments: BLOOD GAS, [id number] 06:28:00* Test Item Value Reference Range Interpretation [...] (test code = 1819) 80.0 % POCT-GLUCOSE [id number] 06:21:00* Test Item Value Reference Range Interpretation Comments POC-GLUCOSE METER (BEAKER) (test code = 1538) 130 mg/dL 70-110 H TESTED AT [place] [id number] [facility] [address] RAD, CHEST, 1 VIEW, NON [id number] 05:21:00Reason for exam:->hypoxiaShould this be performed at [...] Avendaño Verified Date/Time: 06/06/2018 05:21:30 Reading Location: [address] Neuro Reading Room -GLUCOSE [id number] 05:10:00* Test Item Value Reference Range Interpretation Comments POC-GLUCOSE METER (BEAKER) (test code = 1538) 144 mg/dL 70-[address] [facility] [address] [facility] [address] POCT-GLUCOSE [id number] 04:17:00* Test Item Value Reference Range Interpretation Comments POC-GLUCOSE METER (BEAKER) (test code = 1538) 161 mg/dL 70-[address] [facility] [address] [facility] [address] [id number] 04:06:00* Test Item Value Reference Range Interpretation Comments PHOSPHORUS (BEAKER) (test code = 604) 3.8 mg/dL 2.3-4.7 Check Serum Phosphorus level 4 hours after IV phosphorus replacement or 8 hours after PO replacement completed.[id number] 04:06:00* Test Item Value Reference Range Interpretation Comments MAGNESIUM (BEAKER) (test code = 627) 2.5 mg/dL 1.6-2.6 Check Serum Phosphorus level 4 hours after IV phosphorus replacement or 8 hours after PO replacement completed.BASIC METABOLIC [id number] 04:06:00* Test Item Value Reference Range Interpretation [...] 8 hours after PO replacement completed.Specimen markedly [id number] 04:02:00 * Test Item Value Reference Range Interpretation Comments PARTIAL THROMBOPLASTIN TIME (BEAKER) (test code = 760) 44.7 seconds 22.5-36.0 H PROTHROMBIN [id number] 04:00:00* Test Item Value Reference Range Interpretation [...] pat ients with mechanical heart valves.BLOOD GAS, [id number] 03:38:00* Test Item Value Reference Range Interpretation [...] code = 1819) 70.0 % BASIC METABOLIC [id number] 03:34:00* Test Item Value Reference Range Interpretation [...] APPLICABLE FOR DIALYSIS PATIENTS. Specimen markedly ictericPOCT-GLUCOSE [id number] 03:19:00* Test Item Value Reference Range Interpretation Comments POC-GLUCOSE METER (BEAKER) (test code = 1538) 171 mg/dL 70-110 H TESTED AT [address] [address] POCT-GLUCOSE [id number] 02:34:00* Test Item Value Reference Range Interpretation Comments POC-GLUCOSE METER (BEAKER) (test code = 1538) 201 mg/dL 70-110 H TESTED AT [address] [address] POCT-GLUCOSE [id number] 01:17:00* Test Item Value Reference Range Interpretation Comments POC-GLUCOSE METER (BEAKER) (test code = 1538) 174 mg/dL 70-110 H TESTED AT [address] [address] [id number] 00:15:00* Test Item Value Reference Range Interpretation Comments MAGNESIUM (BEAKER) (test code = 627) 2.3 mg/dL 1.6-2.6 POCT-GLUCOSE [id number] 00:10:00* Test Item Value Reference Range Interpretation Comments POC-GLUCOSE METER (BEAKER) (test code = 1538) 143 mg/dL 70-110 H TESTED AT [address] [address] POCT-GLUCOSE [id number] 23:18:00* Test Item Value Reference Range Interpretation Comments POC-GLUCOSE METER (BEAKER) (test code = 1538) 145 mg/dL 70-110 H TESTED AT [address] [address] POCT-GLUCOSE [id number] 22:18:00* Test Item Value Reference Range Interpretation Comments POC-GLUCOSE METER (BEAKER) (test code = 1538) 186 mg/dL 70-110 H TESTED AT [address] [address] POCT-GLUCOSE [id number] 21:23:00* Test Item Value Reference Range Interpretation Comments POC-GLUCOSE METER (BEAKER) (test code = 1538) 220 mg/dL 70-110 H TESTED AT [address] [address] POCT-GLUCOSE [id number] 20:47:00* Test Item Value Reference Range Interpretation Comments POC-GLUCOSE METER (BEAKER) (test code = 1538) 248 mg/dL 70-110 H TESTED AT [address] [address] POCT-GLUCOSE [id number] 19:10:00* Test Item Value Reference Range Interpretation Comments POC-GLUCOSE METER (BEAKER) (test code = 1538) 236 mg/dL 70-110 H TESTED AT [address] [address] POCT-GLUCOSE [id number] 18:16:00* Test Item Value Reference Range Interpretation Comments POC-GLUCOSE METER (BEAKER) (test code = 1538) 275 mg/dL 70-110 H TESTED AT [address] [address] BLOOD GAS, [id number] 17:21:00* Test Item Value Reference Range Interpretation [...] (test code = 1819) 60.0 % POCT-GLUCOSE [id number] 17:12:00* Test Item Value Reference Range Interpretation Comments POC-GLUCOSE METER (BEAKER) (test code = 1538) 304 mg/dL 70-110 H Will Repeat Test/TESTED AT [address] [address] POCT-GLUCOSE [id number] 16:01:00* Test Item Value Reference Range Interpretation Comments POC-GLUCOSE METER (BEAKER) (test code = 1538) 302 mg/dL 70-110 H TESTED AT [address] [address] BLOOD GAS, [id number] 14:06:00* Test Item Value Reference Range Interpretation [...] (BEAKER) (test code = 1819) 70.0 % [id number] 13:25:00* Test Item Value Reference Range Interpretation Comments POTASSIUM (BEAKER) (test code = 379) 4.1 meq/L 3.5-5.1 Specimen slightly hemolyzed [id number] 13:25:00* Test Item Value Reference Range Interpretation Comments GLUCOSE RANDOM (BEAKER) (test code = 652) 346 mg/dL 70-105 H BASIC METABOLIC [id number] 13:18:00* Test Item Value Reference Range Interpretation [...] NOT APPLICABLE FOR DIALYSIS PATIENTS. Specimen markedly [id number] 13:17:00* Test Item Value Reference Range Interpretation Comments MAGNESIUM (BEAKER) (test code = 627) 2.4 mg/dL 1.6-2.6 Specimen slightly hemolyzed BASIC METABOLIC [id number] 13:17:00* Test Item Value Reference Range Interpretation [...] APPLICABLE FOR DIALYSIS PATIENTS. Specimen markedly ictericPOCT-GLUCOSE [id number] 11:46:00* Test Item Value Reference Range Interpretation Comments POC-GLUCOSE METER (BEAKER) (test code = 1538) 297 mg/dL 70-110 H TESTED AT [address] [address] RAD, CHEST, 1 VIEW, NON [id number] 11:28:00Reason for exam:->resp failureShould this be performed at the bedside?->YesFINAL REPORT AP chest HISTORY: Respiratory failure. COMPARISON: 06/04/2018. IMPRESSION: Supportive lines unchanged. Hypoinflation. Asymmetric interstitial opacities, left greater than right, increased from previous. No pneumothorax. Signed: Eric Andradeeport Verified Date/Time: 06/05/2018 11:28:49 Reading Location: [facility] Radiology Reading Room IRATORY PANEL [facility] 2018-06-05 09:47:00* Test Item Value [...] sample was tested at the [facility] Molecular Diagnostics Laboratory using the REBIScanfirBitrockr FilmA rray Respiratory Panel. It is FDA cleared and has been verified and approved by the [facility] Molecular Diagnostics Laboratory for clinical use on nasal swab specim ens. It is not FDA-cleared for use on bronchial wash/lavage samples. However, fo r this sample type, validation was performed and test characteristics were deter mined and approved, by [facility] laboratory for clinical use u nder the Clinical Laboratory Improvement Amendments (CLIA) of 1988 requirements. Therefore, FDA clearance is not required. This laboratory is CLIA-certified an d [employer] ([employer])-accredited to perform high complexity t esting.CBC W/PLT COUNT & AUTO [id number] 07:05:00* Test Item Value Reference Range Interpretation [...] quate Received comment: User comments: Slide comments: [id number] 06:05:00* Test Item Value Reference Range Interpretation Comments PROCALCITONIN (BEAKER) (test code = 3036) 2.30 ng/mL <0.05 H SEPSIS RISK (ng/mL)Low: 0.05-0.50Intermediate: 0.51-2.00High: > =2.01LACTIC ACID, [id number] 05:39:00* Test Item Value Reference Range Interpretation Comments LACTATE BLOOD ARTERIAL (2) (BEAKER) (test code = 2874) 1.3 mmol/L 0.5-2.2 Specimen slightly hemolyzed Specimen markedly ictericCALCIUM, [id number] 04:12:00* Test Item Value Reference Range Interpretation Comments CALCIUM IONIZED (BEAKER) (test code = 698) 0.98 mmol/L 1.12-1.27 L PH, BLOOD (BEAKER) (test code = 1810) 7.43 Check serum Ionized Calcium level after 4 hours after IV Calcium replacement. BLOOD GAS, [id number] 04:06:00* Test Item Value Reference Range Interpretation [...] (test code = 1819) 75.0 % PTH, [id number] 04:05:00* Test Item Value Reference Range Interpretation Comments PARATHYROID HORMONE INTACT (BEAKER) (test code = 577) 183.2 pg/mL 8.5-72.5 H [id number] 04:04:00* Test Item Value Reference Range Interpretation Comments PARTIAL THROMBOPLASTIN TIME (BEAKER) (test code = 760) 48.3 seconds 22.5-36.0 H PROTHROMBIN [id number] 04:03:00* Test Item Value Reference Range Interpretation [...] = 380) 90 U/L 29-20 0 POCT-GLUCOSE [id number] 00:47:00* Test Item Value Reference Range Interpretation Comments POC-GLUCOSE METER (BEAKER) (test code = 1538) 277 mg/dL 70-[address] [facility] [address] [facility] [address] CALCIUM, [id number] 00:37:00* Test Item Value Reference Range Interpretation Comments CALCIUM IONIZED (BEAKER) (test code = 698) 0.95 mmol/L 1.12-1.27 L PH, BLOOD (BEAKER) (test code = 1810) 7.44 Check serum Ionized Calcium level after 4 hours after IV Calcium replacement. [id number] 00:36:00* Test Item Value Reference Range Interpretation Comments POTASSIUM (BEAKER) (test code = 379) 3.9 meq/L 3.5-5.1 8 hours after PO replacement [id number] 20:35:00* Test Item Value Reference Range Interpretation Comments MAGNESIUM (BEAKER) (test code = 627) 2.3 mg/dL 1.6-2.6 BASIC METABOLIC [id number] 20:35:00* Test Item Value Reference Range Interpretation [...] FOR DIALYSIS PATIENTS. Specimen markedly ictericU/S, ABDOMINAL, [id number] 18:10:00Abdomen limited area? Add comment if clarification [...] Ortegaort Verified Date/Time: 06/04/2018 18:10:46 Reading Location: [address] Ultrasound Reading Room -GLUCOSE METER 2018-06-04 17:48:00* Test Item Value Reference Range Interpretation Comments POC-GLUCOSE METER (BEAKER) (test code = 1538) 294 mg/dL 70-[address] [facility] [address] [facility] [address] CALCIUM, [id number] 15:55:00* Test Item Value Reference Range Interpretation Comments CALCIUM IONIZED (BEAKER) (test code = 698) 0.98 mmol/L 1.12-1.27 L PH, BLOOD (BEAKER) (test code = 1810) 7.50 RAD, ABDOMEN/KUB, 1 VIEW [id number] 14:34:00Reason for exam:->Cortrak placementFINAL REPORT Abdomen. CLINICAL HISTORY: Corpak placement. Comparison study: None available. FINDINGS: A single supine view the abdomen demonstrates a feeding tube in place, the distal aspect coiled near the antrum with the tip projecting over the mid stomach. This film is insensitive for the detection of free air. Signed: Andrew Sloan MDReport Verified Date/Time: 06/04/2018 14:34:10 Reading Location: [facility] C013W Consult Reading Room C METABOLIC [id number] 14:26:00* Test Item Value Reference Range Interpretation [...] FOR DIALYSIS PATIENTS. Specimen markedly ictericLACTIC ACID, [id number] 14:09:00* Test Item Value Reference Range Interpretation Comments LACTATE BLOOD ARTERIAL (2) (BEAKER) (test code = 2874) 1.2 mmol/L 0.5-2.2 Specimen markedly ictericPOCT-GLUCOSE [id number] 13:35:00* Test Item Value Reference Range Interpretation Comments POC-GLUCOSE METER (BEAKER) (test code = 1538) 247 mg/dL 70-110 H TESTED AT [address] [address] [id number] 11:32:00* Test Item Value Reference Range Interpretation Comments MAGNESIUM (BEAKER) (test code = 627) 2.1 mg/dL 1.6-2.6 Specimen slightly hemolyzed BASIC METABOLIC [id number] 11:32:00* Test Item Value Reference Range Interpretation [...] FOR DIALYSIS PATIENTS. Specimen markedly ictericVANCOMYCIN LEVEL, [id number] 11:20:00* Test Item Value Reference Range Interpretation Comments VANCOMYCIN RANDOM (BEAKER) (test code = 523) 27.0 ug/mL Reference Range: No NormalsURINALYSIS W/ REFLEX URINE [id number] 11:15:00 * Test Item Value Reference Range [...] = 2795) RAD, CHEST, 1 VIEW, NON [id number] 11:01:00Reason for exam:->ETT advancement, L IJ CVC [...] Shieldseport Verified Date/Time: 06/04/2018 11:01:19 Reading Location: [facility] Radiology Reading Room C METABOLIC [id number] 10:59:00* Test Item Value Reference Range Interpretation [...] NOT APPLICABLE FOR DIALYSIS PATIENTS. Specimen markedly [id number] 10:53:00* Test Item Value Reference Range Interpretation Comments AMYLASE (BEAKER) (test code = 349) 32 U/L 25-125 Specimen markedly [id number] 10:53:00* Test Item Value Reference Range Interpretation Comments LIPASE (BEAKER) (test code = 749) 27 U/L 8-78 Specimen markedly ictericBLOOD GAS, [id number] 10:51:00* Test Item Value Reference Range Interpretation [...] (test code = 368) 5.3 % 4.3-6.1 [id number] 09:15:00* Test Item Value Reference Range Interpretation Comments PROCALCITONIN (BEAKER) (test code = 3036) 2.96 ng/mL <0.05 H SEPSIS RISK (ng/mL)Low: 0.05-0.50Intermediate: 0.51-2.00High: > =2.01RAD, CHEST, 1 VIEW, NON [id number] 09:01:00Reason for exam:->ARDSFINAL REPORT TECHNIQUE: Frontal chest radiograph dated . CLINICAL HISTORY: ARDS COMPARISON STUDY: Chest radiograph dated 9 IMPRESSION:Life support tubes and lines are unchanged. There is stable atelect asis in the left lung base. No pleural effusion or pneumothorax. Cardiomediastin al silhouette is normal in size. No pulmonary edema. No fracture. Signed: Sb Don Verified Date/Time: 06/04/2018 09:01:21 Reading Location : [facility] Radiology Reading Room IC ACID, [id number] 08:49:00* Test Item Value Reference Range Interpretation Comments LACTATE BLOOD ARTERIAL (2) (BEAKER) (test code = 2874) 1.4 mmol/L 0.5-2.2 Specimen moderately ictericBLOOD GAS, [id number] 05:26:00* Test Item Value Reference Range Interpretation [...] code = 1819) 80.0 % COMPREHENSIVE METABOLIC [id number] 04:41:00* Test Item Value Reference Range Interpretation [...] FOR DIALYSIS PATIENTS. Specimen markedly ictericHEPATIC FUNCTION [id number] 04:41:00* Test Item Value Reference Range Interpretation [...] U/L 6-55 H Specimen markedly ictericLACTIC ACID, [id number] 04:32:00* Test Item Value Reference Range Interpretation Comments LACTATE BLOOD ARTERIAL (2) (BEAKER) (test code = 2874) 1.6 mmol/L 0.5-2.2 Specimen markedly [id number] 04:31:00* Test Item Value Reference Range Interpretation Comments FIBRINOGEN LEVEL (BEAKER) (test code = 658) 592 mg/dl 225-434 H PT/[id number] 04:31:00* Test Item Value Reference Range Interpretation [...] 2.5-3.5 for pat ients with mechanical heart valves.[id number] 04:31:00* Test Item Value Reference Range Interpretation Comments PARTIAL THROMBOPLASTIN TIME (BEAKER) (test code = 760) 41.5 seconds 22.5-36.0 H PROTHROMBIN TIME/[id number] 04:30:00* Test Item Value Reference Range Interpretation [...] mechanical heart valves.CBC W/PLT COUNT & AUTO [id number] 04:15:00* Test Item Value Reference Range Interpretation [...] = 2801) 3 % 0-1 H POCT-GLUCOSE [id number] 23:44:00* Test Item Value Reference Range Interpretation Comments POC-GLUCOSE METER (BEAKER) (test code = 1538) 195 mg/dL 70-[address] [facility] [address] [facility] [address] RAD, CHEST, 1 VIEW, NON [id number] 21:14:00Reason for exam:->respiratory failure/hypoxiaShould this be performed [...] MDReport Verified Date/Time: 09/2018 21:14:49 Reading Location: [facility] C013W Consult Reading Room Electro nically signed by: SADIQ HAINES M.D. on 06/03/2018 09:14 PM FERRITIN 2018-06-03 21:11:00* Test Item Value Reference Range Interpretation Comments FERRITIN (BEAKER) (test code = 361) 1898 ng/mL 5-275 H HEPATITIS B SURFACE [id number] 20:52:00* Test Item Value Reference Range Interpretation Comments HEPATITIS B SURFACE ANTIBODY (BEAKER) (test code = 647) < mIU/mL <8.0 HEPATITIS B SURFACE [id number] 20:51:00* Test Item Value Reference Range Interpretation Comments HEPATITIS B SURFACE ANTIGEN (2) (BEAKER) (test code = 2585) Nonreactive Nonreactive HEPATITIS C [id number] 20:51:00* Test Item Value Reference Range Interpretation Comments HEPATITIS C ANTIBODY (BEAKER) (test code = 367) Nonreactive Nonrea ctive HEPATITIS B CORE ANTIBODY, [id number] 20:51:00* Test Item Value Reference Range Interpretation Comments HEPATITIS B CORE TOTAL ANTIBODY (BEAKER) (test code = 497) N onreactive Nonreactive [id number] 20:48:00* Test Item Value Reference Range Interpretation Comments MAGNESIUM (BEAKER) (test code = 627) 1.9 mg/dL 1.6-2.6 BASIC METABOLIC [id number] 20:48:00* Test Item Value Reference Range Interpretation [...] DIALYSIS PATIENTS. Specimen markedly ictericHEPATITIS A ANTIBODY, [id number] 20:45:00* Test Item Value Reference Range Interpretation Comments HEPATITIS A IGG ANTIBODY (BEAKER) (test code = 2797) Reactive N onreactive A ALPHA FETOPROTEIN (AFP), TUMOR [id number] 20:44:00* Test Item Value Reference Range Interpretation Comments ALPHA-FETOPROTEIN (BEAKER) (test code = 1094) 6.3 ng/mL <10.0 HEPATITIS B CORE ANTIBODY, [id number] 20:44:00* Test Item Value Reference Range Interpretation Comments HEPATITIS B CORE IGM ANTIBODY (BEAKER) (test code = 645) Non reactive Nonreactive HEPATITIS A ANTIBODY, [id number] 20:44:00* Test Item Value Reference Range Interpretation [...] 2590) 40 % 20-5 5 BLOOD GAS, [id number] 20:25:00* Test Item Value Reference Range Interpretation [...] 1819) 100.0 % SPUTUM CULTURE + GRAM [id number] 19:38:00* Test Item Value Reference Range Interpretation Comments CULTURE (BEAKER) (test code = 1095) <1+ Normal respiratory chase pr esent GRAM STAIN RESULT (BEAKER) (test code = 1123) 1+ White blood cells seen GRAM STAIN RESULT (BEAKER) (test code = 72060) 0-5 epithelial cells GRAM STAIN RESULT (BEAKER) (test code = 11507) <1+ gram negative ro ds URINALYSIS W/ REFLEX URINE [id number] 18:20:00* Test Item Value Reference Range Interpretation [...] SOURCE(BEAKER) (test code = 2795) BLOOD GAS, [id number] 17:17:00* Test Item Value Reference Range Interpretation [...] (BEAKER) (test code = 1819) 60.0 % EGHEU-1-UQAKZGBLZNO1017-04-08 16:17:00* Test Item Value Reference Range Interpretation Comments ALPHA-1 ANTITRYPSIN (BEAKER) (test code = 502) > mg/dL 90.00-2 00.00 H [id number] 14:26:00* Test Item Value Reference Range Interpretation Comments MAGNESIUM (BEAKER) (test code = 627) 2.0 mg/dL 1.6-2.6 BASIC METABOLIC [id number] 14:26:00* Test Item Value Reference Range Interpretation [...] FOR DIALYSIS PATIENTS. Specimen markedly ictericBLOOD GAS, [id number] 13:25:00* Test Item Value Reference Range Interpretation [...] code = 1819) 40.0 % VANCOMYCIN LEVEL, [id number] 11:06:00* Test Item Value Reference Range Interpretation Comments VANCOMYCIN TROUGH (BEAKER) (test code = 522) 45.6 ug/mL 10.0-20.0 HH BLOOD GAS, [id number] 09:54:00* Test Item Value Reference Range Interpretation [...] 40.0 % RAD, CHEST, 1 VIEW, NON [id number] 05:04:00Reason for exam:->ARDSFINAL REPORT Chest one view. [...] Ceballosort Verified Date/Time: 06/03/2018 05:04:55 Reading Location: [facility] B1 C013Y CT Body Reading Room [...] 700) 405 pg/mL 0-100 H LACTIC ACID, [id number] 04:01:00* Test Item Value Reference Range Interpretation Comments LACTATE BLOOD ARTERIAL (2) (BEAKER) (test code = 2874) 0.7 mmol/L 0.5-2.2 Specimen moderately ictericCBC W/PLT COUNT & AUTO [id number] 03:57:00* Test Item Value Reference Range Interpretation [...] code = 2801) 3 % 0-1 H [id number] 03:48:00* Test Item Value Reference Range Interpretation Comments FIBRINOGEN LEVEL (BEAKER) (test code = 658) 644 mg/dl 225-434 H PT/[id number] 03:48:00* Test Item Value Reference Range Interpretation [...] pat ients with mechanical heart valves.BLOOD GAS, [id number] 03:36:00* Test Item Value Reference Range Interpretation [...] (test code = 1819) 40.0 % POCT-GLUCOSE [id number] 02:21:00* Test Item Value Reference Range Interpretation Comments POC-GLUCOSE METER (BEAKER) (test code = 1538) 225 mg/dL 70-[address] [facility] [address] [place] [address] [id number] 21:48:00* Test Item Value Reference Range Interpretation Comments MAGNESIUM (BEAKER) (test code = 627) 2.2 mg/dL 1.6-2.6 BASIC METABOLIC [id number] 21:48:00* Test Item Value Reference Range Interpretation [...] NOT APPLICABLE FOR DIALYSIS PATIENTS. Specimen markedly [id number] 17:35:00* Test Item Value Reference Range Interpretation Comments MAGNESIUM (BEAKER) (test code = 627) 2.8 mg/dL 1.6-2.6 H Specimen moderately hemolyzed [id number] 17:35:00* Test Item Value Reference Range Interpretation Comments POTASSIUM (BEAKER) (test code = 379) 4.5 meq/L 3.5-5.1 Specimen moderately hemolyzed [id number] 15:15:00* Test Item Value Reference Range Interpretation Comments PROCALCITONIN (BEAKER) (test code = 3036) 1.58 ng/mL <0.05 H SEPSIS RISK (ng/mL)Low: 0.05-0.50Intermediate: 0.51-2.00High: > =2.01B-TYPE NATRIURETIC FACTOR (BNP)2018-06-02 14:09:00* Test Item Value Reference Range Interpretation Comments B-TYPE NATRIURETIC PEPTIDE (BEAKER) (test code = 700) 286 pg/mL 0-100 H [id number] 13:51:00* Test Item Value Reference Range Interpretation Comments PARTIAL THROMBOPLASTIN TIME (BEAKER) (test code = 760) 42.9 seconds 22.5-36.0 H PROTHROMBIN TIME/[id number] 13:50:00* Test Item Value Reference Range Interpretation [...] pat ients with mechanical heart valves.BLOOD GAS, [id number] 13:33:00* Test Item Value Reference Range Interpretation [...] (test code = 1819) 40.0 % GLUCOSE-STAT [id number] 13:33:00* Test Item Value Reference Range Interpretation Comments GLUCOSE RANDOM (BEAKER) (test code = 652) 174 mg/dL 70-110 H TSH/FREE T4 IF [id number] 07:15:00* Test Item Value Reference Range Interpretation Comments THYROID STIMULATING HORMONE (BEAKER) (test code = 772) 1.76 uIU/mL 0.35-4.94 COMPREHENSIVE METABOLIC [id number] 03:52:00* Test Item Value Reference Range Interpretation [...] Specimen markedly ictericRAD, CHEST, 1 VIEW, NON [id number] 03:35:00Reason for exam:->ARDSFINAL REPORT Chest one view. [...] Ceballos Verified Date/Time: 06/02/2018 03:35:13 Reading Location: [facility] B1 C013Y CT Body Reading Room /[id number] 03:12:00* Test Item Value Reference Range Interpretation [...] 2.5-3.5 for pat ients with mechanical heart valves.[id number] 03:03:00* Test Item Value Reference Range Interpretation Comments FIBRINOGEN LEVEL (BEAKER) (test code = 658) 695 mg/dl 225-434 H LACTIC ACID, [id number] 03:02:00* Test Item Value Reference Range Interpretation Comments LACTATE BLOOD ARTERIAL (2) (BEAKER) (test code = 2874) 0.7 mmol/L 0.5-2.2 Specimen markedly ictericCBC W/PLT COUNT & AUTO [id number] 02:53:00 * Test Item Value Reference Range [...] 2801) 2 % 0-1 H BLOOD GAS, [id number] 02:53:00* Test Item Value Reference Range Interpretation [...] code = 1819) 60.0 % BLOOD GAS, [id number] 00:24:00* Test Item Value Reference Range Interpretation [...] code = 1819) 60.0 % BASIC METABOLIC [id number] 17:38:00* Test Item Value Reference Range Interpretation [...] FOR DIALYSIS PATIENTS. Specimen markedly ictericBLOOD GAS, [id number] 17:10:00* Test Item Value Reference Range Interpretation [...] (test code = 1819) 60.0 % Blood [id number] 17:08:00* Test Item Value Reference Range Interpretation Comments Blood Culture (test code = 22998887) NO GROWTH AFTER 5 DAYS, FINAL REPORT [facility]viewU/[facility], ABDOMINAL, [id number] 15:11:00Abdomen limited area? Add comment if clarification [...] MDReport Verified Date/Time: 06/01/2018 15:11:50 Reading Location: [facility] C013X Ortho Consult Reading Room A GLUTAMYL TRANSFERASE (GGT) 2018-06-01 14:41:00* Test Item Value Reference Range Interpretation Comments GAMMA GLUTAMYL TRANSFERASE (BEAKER) (test code = 364) 136 U/L 9-64 H Specimen markedly ictericBLOOD GAS, [id number] 14:18:00* Test Item Value Reference Range Interpretation [...] = 1819) 60.0 % CT, CHEST, WITHOUT [id number] 13:38:00FINAL REPORT TECHNIQUE: CT of the chest, [...] rt Verified Date/Time: 06/01/2018 13:38:09 Reading Location: [facility] C013X [facility] Consult Reading Room Electronically signed by: KYLE RAE MD on 07/2018 01:[address], [id number] 13:38:00FINAL REPORT TECHNIQUE: CT of the chest, [...] rt Verified Date/Time: 06/01/2018 13:38:09 Reading Location: [address] Consult Reading Room Electronically signed by: KYLE RAE MD on 07/2018 01:[address], BRAIN, WITHOUT [id number] 13:10:00FINAL REPORT CT, BRAIN, WITHOUT CONTRAST CLINICAL [...] Verified Date/Time: 06/01/2018 13:10:29 Reading Lo cation: [facility] B1 C013V Neuro Reading Room D GAS, [id number] 11:45:00* Test Item Value Reference Range Interpretation [...] 1819) 80.0 % URINALYSIS W/ REFLEX URINE [id number] 11:13:00* Test Item Value Reference Range Interpretation [...] 1414) 16.4 % 0.0-5.0 H COMPREHENSIVE METABOLIC [id number] 10:13:00* Test Item Value Reference Range Interpretation [...] 248 U/L 125-2 20 H HEPATIC FUNCTION [id number] 09:21:00* Test Item Value Reference Range Interpretation [...] = 347) 32 U/L 6-55 Specimen markedly hkdrpshUBJSMGTJWF2930-24-37 09:20:00* Test Item Value Reference Range Interpretation Comments FIBRINOGEN LEVEL (BEAKER) (test code = 658) 729 mg/dl 225-434 H PT/[id number] 09:20:00* Test Item Value Reference Range Interpretation [...] 2.5-3.5 for pat ients with mechanical heart valves.[id number] 09:20:00* Test Item Value Reference Range Interpretation Comments PHOSPHORUS (BEAKER) (test code = 604) 3.9 mg/dL 2.3-4.7 [id number] 09:20:00* Test Item Value Reference Range Interpretation Comments MAGNESIUM (BEAKER) (test code = 627) 2.3 mg/dL 1.6-2.6 LACTIC ACID, [id number] 09:17:00* Test Item Value Reference Range Interpretation Comments LACTATE BLOOD ARTERIAL (2) (BEAKER) (test code = 2874) 0.7 mmol/L 0.5-2.2 Specimen markedly ictericCBC W/PLT COUNT & AUTO [id number] 09:13:00 * Test Item Value Reference Range [...] 2801) 3 % 0-1 H OXYGEN SATURATION, [id number] 09:07:00* Test Item Value Reference Range Interpretation Comments O2 SATURATION (MEASURED) (BEAKER) (test code = 1455) 80.9 % CALCIUM, [id number] 09:06:00* Test Item Value Reference Range Interpretation Comments CALCIUM IONIZED (BEAKER) (test code = 698) 1.01 mmol/L 1.12-1.27 L PH, BLOOD (BEAKER) (test code = 1810) 7.40 BLOOD GAS, [id number] 09:05:00* Test Item Value Reference Range Interpretation [...] code = 1819) 100.0 % SODIUM NA-STAT [id number] 09:05:00* Test Item Value Reference Range Interpretation Comments SODIUM (BEAKER) (test code = 381) 127 meq/L 135-148 L GLUCOSE-STAT [id number] 09:05:00* Test Item Value Reference Range Interpretation Comments GLUCOSE RANDOM (BEAKER) (test code = 652) 181 mg/dL 70-110 H HGB/HCT (H&H) - STAT [id number] 09:05:00* Test Item Value Reference Range Interpretation Comments HEMOGLOBIN (BEAKER) (test code = 410) 10.4 g/dL 13.0-16.8 L HEMATOCRIT (BEAKER) (test code = 411) 31.0 % 40.0-50.0 L POTASSIUM-STAT [id number] 09:02:00* Test Item Value Reference Range Interpretation Comments POTASSIUM (BEAKER) (test code = 379) 4.6 meq/L 3.6-5.5 RAD, CHEST, 1 VIEW, NON [id number] 08:51:00Reason for exam:->ARFShould this be performed at [...] MDReport Verified Date/Time: 06/01/2018 08:51:32 Reading Location: [address] Neuro Reading Room D GAS, [id number] 08:32:00* Test Item Value Reference Range Interpretation [...] code = 1819) 100.0 % SODIUM NA-STAT [id number] 08:32:00* Test Item Value Reference Range Interpretation Comments SODIUM (BEAKER) (test code = 381) 127 meq/L 135-148 L GLUCOSE-STAT [id number] 08:32:00* Test Item Value Reference Range Interpretation Comments GLUCOSE RANDOM (BEAKER) (test code = 652) 171 mg/dL 70-110 H HGB/HCT (H&H) - STAT [id number] 08:32:00* Test Item Value Reference Range Interpretation Comments HEMOGLOBIN (BEAKER) (test code = 410) 10.5 g/dL 13.0-16.8 L HEMATOCRIT (BEAKER) (test code = 411) 31.0 % 40.0-50.0 L CALCIUM, [id number] 08:32:00* Test Item Value Reference Range Interpretation Comments CALCIUM IONIZED (BEAKER) (test code = 698) 1.00 mmol/L 1.12-1.27 L PH, BLOOD (BEAKER) (test code = 1810) 7.43 POTASSIUM-STAT [id number] 08:30:00* Test Item Value Reference Range Interpretation Comments POTASSIUM (BEAKER) (test code = 379) 5.4 meq/L 3.6-5.5 Sodium [id number] 03:33:00* Test Item Value Reference Range Interpretation Comments Sodium Level (test code = 2951-2) 130 136-145 L [facility]viewPotassium Dojox5250-54-54 03:33:00* Test Item Value Reference Range Interpretation Comments Potassium Level (test code = 2823-3) 5.1 3.5-5.1 SPECIMEN SLIGHTLY ICTERICCovenant Health PlainviewChloride Level 2018-06-01 03:33:00* Test Item Value Reference Range Interpretation Comments Chloride Level (test code = 2075-0) 93 98-107 L [facility] PlainviewCarbon Dioxide [id number] 03:33:00* Test Item Value Reference Range Interpretation Comments Carbon Dioxide Level (test code = 2028-9) 25 22-29 [facility]viewAnion [id number] 03:33:00* Test Item Value Reference Range Interpretation Comments Anion Gap (test code = 52221-8) 17.1 8-16 H [facility] PlainviewBlood Urea Kodfpycx8918-22-08 03:33:00* Test Item Value Reference Range Interpretation Comments Blood Urea Nitrogen (test code = 3094-0) 25 7-26 VERIFIED PREVIOUS RESULTSCovenant Health PlainviewCreatinine 2018-06-01 03:33:00* Test Item Value Reference Range Interpretation Comments Creatinine (test code = 2160-0) 1.47 0.72-1.25 H [facility] PlainviewBUN/Creatinine Nzpvr2487-20-31 03:33:00* Test Item Value Reference Range Interpretation Comments BUN/Creatinine Ratio (test code = 3097-3) 17 6-25 [facility] PlainviewEstimat Glomerular Filtration Rate 2018-06-01 03:33:00* Test Item Value Reference Range Interpretation Comments Estimat Glomerular Filtration Rate (test code = 241407203) 53 >60 L Ranges were taken from the National Kidney Disease Education Program and the [facility] literature.Reference ranges:60 or greater: Abochm46-34 ( for 3 consecutive months): Chronic kidney disease 15 or less: Kidney failureCovenant Health PlainviewGlucose Qrnot9362-13-44 03:33:00* Test Item Value Reference Range Interpretation Comments Glucose Level (test code = WRD7077) 160 74-118 H [facility] PlainviewCalcium Kxvua9765-86-43 03:33:00* Test Item Value Reference Range Interpretation Comments Calcium Level (test code = 19698-1) 8.1 8.4-10.2 L [facility] PlainviewMagnesium Bptfj1587-23-86 03:33:00* Test Item Value Reference Range Interpretation Comments Magnesium Level (test code = 95458-7) 2.3 1.3-2.1 H [facility] PlainviewMagnesium Vjrmi5906-19-01 03:33:00* Test Item Value Reference Range Interpretation Comments Magnesium Level (test code = 92797-5) 2.3 1.3-2.1 H [facility] PlainviewWhite Blood [id number] 03:21:00* Test Item Value Reference Range Interpretation Comments White Blood Count (test code = 6690-2) 20.59 4.8-10.8 H [facility] PlainviewRed Blood [id number] 03:21:00* Test Item Value Reference Range Interpretation Comments Red Blood Count (test code = 789-8) 2.65 4.3-5.7 L [facility]viewHemoglobin2019-04-06 03:21:00* Test Item Value Reference Range Interpretation Comments Hemoglobin (test code = 30382-9) 9.6 14.0-18.0 L [facility] PlainviewHematocrit2019-04-06 03:21:00* Test Item Value Reference Range Interpretation Comments Hematocrit (test code = 4544-3) 29.1 38.2-49.6 L [facility] PlainviewMean Corpuscular Taakdy3493-95-74 03:21:00* Test Item Value Reference Range Interpretation Comments Mean Corpuscular Volume (test code = 787-2) 109.8 81-99 H [facility] PlainviewMean Corpuscular Bqhofhlenk8817-56-55 03:21:00* Test Item Value Reference Range Interpretation Comments Mean Corpuscular Hemoglobin (test code = 785-6) 36.2 28-32 H [facility] PlainviewMean Corpuscular Hemoglobin Concent 2018-06-01 03:21:00* Test Item Value Reference Range Interpretation Comments Mean Corpuscular Hemoglobin Concent (test code = 786-4) 33.0 31-35 [facility]viewRed Cell Distribution [id number] 03:21:00* Test Item Value Reference Range Interpretation Comments Red Cell Distribution Width (test code = 28523-7) 13.3 11.7 -14.4 [facility] PlainviewPlatelet Ndbta1866-88-85 03:21:00* Test Item Value Reference Range Interpretation Comments Platelet Count (test code = 777-3) 321 140-360 [facility]viewNeutrophils (%) (Auto)2018-06-01 03:21:00 * Test Item Value Reference Range Interpretation Comments Neutrophils (%) (Auto) (test code = 31297-4) 91.1 38.7-80.0 H [facility] PlainviewLymphocytes (%) (Auto)2018-06-01 03:21:00 * Test Item Value Reference Range Interpretation Comments Lymphocytes (%) (Auto) (test code = 736-9) 3.4 18.0-39.1 L [facility]viewMonocytes (%) (Auto)2018-06-01 03:21:00* Test Item Value Reference Range Interpretation Comments Monocytes (%) (Auto) (test code = 5905-5) 2.9 4.4-11.3 L [facility]viewEosinophils (%) (Auto)2018-06-01 03:21:00 * Test Item Value Reference Range Interpretation Comments Eosinophils (%) (Auto) (test code = 713-8) 0.0 0.0-6.0 [facility]viewBasophils (%) (Auto)2018-06-01 03:21:00* Test Item Value Reference Range Interpretation Comments Basophils (%) (Auto) (test code = 706-2) 0.2 0.0-1.0 [facility] PlainviewIM GRANULOCYTES %2018-06-01 03:21:00* Test Item Value Reference Range Interpretation Comments IM GRANULOCYTES % (test code = IM GRANULOCYTES %) 2.4 0.0- 1.0 H [facility]viewNeutrophils # (Auto)2018-06-01 03:21:00* Test Item Value Reference Range Interpretation Comments Neutrophils # (Auto) (test code = 751-8) 18.8 2.1-6.9 H [facility] PlainviewLymphocytes # (Auto)2018-06-01 03:21:00* Test Item Value Reference Range Interpretation Comments Lymphocytes # (Auto) (test code = 23853-8) 0.7 1.0-3.2 L [facility]viewMonocytes # (Auto)2018-06-01 03:21:00* Test Item Value Reference Range Interpretation Comments Monocytes # (Auto) (test code = 742-7) 0.6 0.2-0.8 [facility]viewEosinophils # (Auto)2018-06-01 03:21:00* Test Item Value Reference Range Interpretation Comments Eosinophils # (Auto) (test code = 711-2) 0.0 0.0-0.4 [facility]viewBasophils # (Auto)2018-06-01 03:21:00* Test Item Value Reference Range Interpretation Comments Basophils # (Auto) (test code = 704-7) 0.1 0.0-0.1 [facility] PlainviewAbsolute Immature Granulocyte (auto 2018-06-01 03:21:00* Test Item Value Reference Range Interpretation Comments Absolute Immature Granulocyte (auto (doug t code = Absolute Immature Granulocyte (auto) 0.49 0-0.1 H [facility]viewArterlutheran hospital Blood [id number] 00:17:00* Test Item Value Reference Range Interpretation Comments Arterial Blood pH (test code = 2744-1) 7.34 7.31-7.41 [facility] PlainviewArterial Blood Partial Pressure CO2 2018-06-01 00:17:00* Test Item Value Reference Range Interpretation Comments Arterial Blood Partial Pressure CO2 (test code = 2018-8) 49 41-51 [facility] PlainviewArterial Blood Partial Pressure O2 2018-06-01 00:17:00* Test Item Value Reference Range Interpretation Comments Arterial Blood Partial Pressure O2 (test code = 2018-8) 77 80-105 L [facility] Blood [id number] 00:17:00* Test Item Value Reference Range Interpretation Comments Arterial Blood HCO3 (test code = 1960-4) 27 23-28 [facility] PlainviewArterial Blood Base Nmpmwg9987-49-61 00:17:00* Test Item Value Reference Range Interpretation Comments Arterial Blood Base Excess (test code = 1925-7) 1.0 -2-3 [facility] PlainviewArterial Blood Oxygen Saturation 2018-06-01 00:17:00* Test Item Value Reference Range Interpretation Comments Arterial Blood Oxygen Saturation (test code = 2708-6) 94.0 95-98 L [facility] PlainviewFiO22019-04-06 00:17:00* Test Item Value Reference Range Interpretation Comments FiO2 (test code = FiO2) 85 PT. ON PRVC 16, 440 +12 85[facility] PlainviewArterial Blood [id number] 00:17:00* Test Item Value Reference Range Interpretation Comments Arterial Blood pH (test code = 2744-1) 7.34 7.31-7.41 [facility] PlainviewArterial Blood Partial Pressure CO2 2018-06-01 00:17:00* Test Item Value Reference Range Interpretation Comments Arterial Blood Partial Pressure CO2 (test code = 2018-09) 49 41-51 [facility] PlainviewArterial Blood Partial Pressure O2 2018-06-01 00:17:00* Test Item Value Reference Range Interpretation Comments Arterial Blood Partial Pressure O2 (test code = 2018-09) 77 80-105 L [facility] PlainviewArterial Blood [id number] 00:17:00* Test Item Value Reference Range Interpretation Comments Arterial Blood HCO3 (test code = 1960-4) 27 23-28 [facility] PlainviewArterial Blood Base Aicokp8827-03-79 00:17:00* Test Item Value Reference Range Interpretation Comments Arterial Blood Base Excess (test code = 1925-7) 1.0 -2-3 [facility] PlainviewArterial Blood Oxygen Saturation 2018-06-01 00:17:00* Test Item Value Reference Range Interpretation Comments Arterial Blood Oxygen Saturation (test code = 2708-6) 94.0 95-98 L [facility] PlainviewFiO22019-04-06 00:17:00* Test Item Value Reference Range Interpretation Comments FiO2 (test code = FiO2) 85 PT. ON PRVC 16, 440 +12 85[facility] PlainviewCT CHEST W 2018-05-31 15:20:00 [facility] [address] [place] [address] Patient Name: INDRA GALVAN MR #: [id number] : 1980 Age/Sex: 37/M Req #: [id number] Adm Physician: KIET DUMAS MD Ordered by: DAVID HORTON Report #: [id number] Location: ICU Room/Bed: ICU [facility] Procedure: 0405-[address]/CT CHEST W Exam Date: 05/31/18 Exam Time: 1430 REPORT STATUS: Signed CT chest pulmonary embolism protocol CPT code: 30203 INDICATION: Intubated, ev aluate for pulmonary embolus; [...] 1537 COPY TO: DAVID HORTON Hepatitis Be Nbmqoluf2641-69-11 08:40:00* Test Item Value Reference Range Interpretation Comments Hepatitis Be Antibody (test code = 04457-4) Negative Negative Performed at: [facility] [id number] Shoe Treer: Esdras Lemon MD, Phone: [phone] Health PlainviewHepatitis Be Bmkynvaf8424-09-93 08:40:00* Test Item Value Reference Range Interpretation Comments Hepatitis Be Antibody (test code = 10489-7) Negative Negative Performed at: [address] [id number] Shoe Treer: Esdras Lemon MD, Phone: [phone] Health PlainviewHIV-1 RNA, Quantitative copies/[id number] 08:39:00* Test Item Value Reference Range Interpretation Comments HIV-1 RNA, Quantitative copies/mL (test code = 51025-4) <20 . HIV-1 RNA not detectedThe reportable range for this assay is 20 to 10,000,000cop ies HIV-1 RNA/mL.[facility]viewHIV-1 RNA, Quantitative copies/hB1522-33-25 08:39:00* Test Item Value Reference Range Interpretation Comments HIV-1 RNA, Quantitative copies/mL (test code = 05128-2) <20 . HIV-1 RNA not detectedThe reportable range for this assay is 20 to 10,000,000cop ies HIV-1 RNA/mL.[facility] PlainviewDifferential Total Cells Slkmtai1733-52-24 07:07:00* Test Item Value Reference Range Interpretation Comments Differential Total Cells Counted (test code = Marcia marvin Total Cells Counted) 100 [facility] PlainviewNeutrophils % (Manual)2018-05-31 07:07:00 * Test Item Value Reference Range Interpretation Comments Neutrophils % (Manual) (test code = 96869-1) 84 40-74 H [facility] PlainviewLymphocytes % (Manual)2018-05-31 07:07:00 * Test Item Value Reference Range Interpretation Comments Lymphocytes % (Manual) (test code = 737-7) 3 19-48 L [facility] PlainviewMonocytes % (Manual)2018-05-31 07:07:00* Test Item Value Reference Range Interpretation Comments Monocytes % (Manual) (test code = 744-3) 10 3.4-9.0 H [facility]viewEosinophils % (Manual)2018-05-31 07:07:00 * Test Item Value Reference Range Interpretation Comments Eosinophils % (Manual) (test code = 714-6) 3 0-7 [facility] PlainviewPlatelet Uhjygvgt3615-28-06 07:07:00* Test Item Value Reference Range Interpretation Comments Platelet Estimate (test code = 78787-5) ADEQUATE [facility] PlainviewPlatelet Morphology Xycbmag6745-99-81 07:07:00* Test Item Value Reference Range Interpretation Comments Platelet Morphology Comment (test code = 71868-9) NORMAL [facility] PlainviewHypochromasia2019-04-05 07:07:00* Test Item Value Reference Range Interpretation Comments Hypochromasia (test code = 728-6) SLIGHT [facility] PlainviewAnisocytosis2019-04-05 07:07:00* Test Item Value Reference Range Interpretation Comments Anisocytosis (test code = 702-1) MODERATE [facility] PlainviewMacrocytosis2019-04-05 07:07:00* Test Item Value Reference Range Interpretation Comments Macrocytosis (test code = 738-5) MODERATE [facility] PlainviewRed Cell Morphology Acrkhsi8944-22-19 07:07:00* Test Item Value Reference Range Interpretation Comments Red Cell Morphology Comment (test code = 6742-1) ABNORMAL [facility]viewDifferential Total Cells Counted 2018-05-31 07:07:00* Test Item Value Reference Range Interpretation Comments Differential Total Cells Counted (test code = Differgibran tial Total Cells Counted) 100 [facility]viewNeutrophils % (Manual)2018-05-31 07:07:00 * Test Item Value Reference Range Interpretation Comments Neutrophils % (Manual) (test code = 12391-5) 84 40-74 H [facility]viewLymphocytes % (Manual)2018-05-31 07:07:00 * Test Item Value Reference Range Interpretation Comments Lymphocytes % (Manual) (test code = 737-7) 3 19-48 L [facility]viewMonocytes % (Manual)2018-05-31 07:07:00* Test Item Value Reference Range Interpretation Comments Monocytes % (Manual) (test code = 744-3) 10 3.4-9.0 H [facility]viewEosinophils % (Manual)2018-05-31 07:07:00 * Test Item Value Reference Range Interpretation Comments Eosinophils % (Manual) (test code = 714-6) 3 0-7 [facility]viewPlatelet Ucjjoxmp7536-64-63 07:07:00* Test Item Value Reference Range Interpretation Comments Platelet Estimate (test code = 11417-2) ADEQUATE [facility]viewPlatelet Morphology Zfbcydz9835-14-91 07:07:00* Test Item Value Reference Range Interpretation Comments Platelet Morphology Comment (test code = 32755-6) NORMAL [facility]viewHypochromasia2019-04-05 07:07:00* Test Item Value Reference Range Interpretation Comments Hypochromasia (test code = 728-6) SLIGHT [facility]viewAnisocytosis2019-04-05 07:07:00* Test Item Value Reference Range Interpretation Comments Anisocytosis (test code = 702-1) MODERATE [facility]viewMacrocytosis2019-04-05 07:07:00* Test Item Value Reference Range Interpretation Comments Macrocytosis (test code = 738-5) MODERATE [facility]viewRed Cell Morphology Qenanlw7393-50-26 07:07:00* Test Item Value Reference Range Interpretation Comments Red Cell Morphology Comment (test code = 6742-1) ABNORMAL [facility]viewTotal Wzipeqrsi5124-34-43 06:43:00* Test Item Value Reference Range Interpretation Comments Total Bilirubin (test code = 1975-2) 17.5 0.2-1.2 H [facility] PlainviewAspartate Amino Transf (AST/SGOT) 2018-05-31 06:43:00* Test Item Value Reference Range Interpretation Comments Aspartate Amino Transf (AST/SGOT) (test code = Aspartate Amino Transf (AST/SGOT)) 97 5-34 H [facility] PlainviewAlanine Aminotransferase (ALT/SGPT) 2018-05-31 06:43:00* Test Item Value Reference Range Interpretation Comments Alanine Aminotransferase (ALT/SGPT) (test code = 1742-6) 28 0-55 [facility]viewTotal Pxfcwsg0153-55-80 06:43:00* Test Item Value Reference Range Interpretation Comments Total Protein (test code = 2885-2) 6.1 6.5-8.1 L [facility]viewAlbumin2019-04-05 06:43:00* Test Item Value Reference Range Interpretation Comments Albumin (test code = 1751-7) 1.7 3.5-5.0 L [facility]viewGlobulin2019-04-05 06:43:00* Test Item Value Reference Range Interpretation Comments Globulin (test code = 11625-1) 4.4 2.3-3.5 H [facility]viewAlbumin/Globulin Uwjdy6777-58-21 06:43:00 * Test Item Value Reference Range Interpretation Comments Albumin/Globulin Ratio (test code = 1759-0) 0.4 0.8-2.0 L [facility]viewAlkaline Qkirlgvkjgu0138-56-42 06:43:00* Test Item Value Reference Range Interpretation Comments Alkaline Phosphatase (test code = 6768-6) 149 40-150 [facility]viewCHEST SINGLE (PORTABLE)2018-05-31 05:31:00 [place] [address] Patient Name: INDRA GALVAN MR #: [id number] : 1980 Age/Sex: 37/M Req #: [id number] Adm Physician: KIET DUMAS MD Ordered by: MANDEEP MARIE MD Report #: [id number] Location: ICU Room/Bed: ICU [facility] Procedure: 0405-000 3 DX/CHEST SINGLE (PORTABLE) Exam Date: 05/31/18 Anjana escalera Time: 0455 REPORT STATUS: Signed Examination: Single AP view of the chest. COMPARISON: 05/30/2018 GLEA CATION: Pneumonia DISCUSSION: Lines/tubes: Endotracheal tube and [...] 05/31/18531 COPY TO: MANDEEP MARIE MD Urine Hxsozoyifh5559-38-37 01:57:00* Test Item Value Reference Range Interpretation Comments Urine Osmolality (test code = 2695-5) 353 . 24 hr : 300 - 900 Random: 50 - 1400 After 12hr fluid restriction: >850Performed at: HD - [facility] [address] [id number] Director: Alli Georges MD, Phone: [phone] Health PlainviewUrine Osmolality 2018-05-31 01:57:00* Test Item Value Reference Range Interpretation Comments Urine Osmolality (test code = 2695-5) 353 . 24 hr : 300 - 900 Random: 50 - 1400 After 12hr fluid restriction: >850Performed at: HD - [facility] [address] [id number] Director: Alli Georges MD, Phone: [phone] Health PlainviewIR NHWSRRJ6526-65-09 17:22:00 [place] [address] Patient Name: INDRA GALVAN MR #: [id number] : 1980 Age/Sex: 37/M Req #: [id number] Adm Physician: KIET DUMAS MD Ordered by: MANDEEP MARIE MD Report #: [id number] Location: ICU Room/Bed: ICU 190-1 Procedure: 0404-004 [...] a 0.018 " skinny wire. A 5 Kenyan micropuncture sheat h was then placed and through the micropuncture sheath a 0.035 " Amplatz super stiff wire placed centrally. Dilatation with a 7 Kenyan Rajesh dilator was a ccomplished. A 7 Kenyan Arrow triple-lumen 20 cm long central line [...] TO: MANDEEP MARIE MD NON-TUNNELLED CVC CATH TVMPVKD7071-93-42 17:22:[address] [place] [address] Patient Name: INDRA GALVAN MR #: [id number] : 1980 Age/Sex: 37/M Req #: [id number] Adm Physician: KIET DUMAS MD Ordered by: MANDEEP MARIE MD Report #: [id number] Location: ICU Room/Bed: ICU [facility] Procedure: 0404-000 3 IR/NON-TUNNELLED CVC CATH [...] 0.018 " skinny wire . A 5 Kenyan micropuncture sheath was then placed and through the micropunctur e sheath a 0.035 " Amplatz superstiff wire placed centrally. Dilatation with a 7 Kenyan Rajesh dilator was accomplished. A 7 Kenyan Arrow triple-lumen 20 cm long central line was then placed over the Amplatz wire. Each lumen was flushed with saline. Catheter secured to the skin with 3-0 Ethilon. Post procedure chest x-ray was ordered. Impression: Successful placement of a triple-lumen central line. Signed by: Dr. Kandi Anand DO on 05/31/19 5:31 PM Dictated By: KANDI ANAND DO 30 Transcribed By: CATERINA on 05/30/181730 MANAGER GENERATION Y TO: MANDEEP MARIE MD US GUIDANCE FOR VASCULAR JDNHS7265-56-01 17:22:00 [place] [address] Patient Name: INDRA GALVAN MR #: [id number] : 1980 Age/Sex: 37/M Req #: [id number] Adm Physician: KIET DUMAS MD Ordered by: MANDEEP MARIE MD Report #: [id number] Location: ICU Room/Bed: ICU [facility] Procedure: 0404-001 8 US/US GUIDANCE FOR [...] 0.018 " skinny wire . A 5 Kenyan micropuncture sheath was then placed and through the micropunctur e sheath a 0.035 " Amplatz superstiff wire placed centrally. Dilatation with a 7 Kenyan Rajesh dilator was accomplished. A 7 Kenyan Arrow triple-lumen 20 cm long central line was then placed over the Amplatz wire. Each lumen was flushed with saline. Catheter secured to the skin with 3-0 Ethilon. Post procedure chest x-ray was ordered. Impression: Successful placement of a triple-lumen central line. Signed by: Dr. Kandi Anand DO on 05/31/19 5:31 PM Dictated By: KANDI ANAND DO 30 Transcribed By: CATERINA on 05/30/181730 MANAGER GENERATION Y TO: MANDEEP MARIE MD Blood Xbnpujz3360-97-32 17:10:00* Test Item Value Reference Range Interpretation Comments Blood Culture (test code = 92602175) NO GROWTH AFTER 72 HOURS [facility] XRAY LINE OMCZJSAZG3382-69-32 15:38:00 [place] [address] Patient Name: INDRA GALVAN MR #: [id number] : 1980 Age/Sex: 37/M Req #: [id number] Adm Physician: KIET DUMAS MD Ordered by: KANDI ANAND DO Report #: [id number] Location: ICU Room/Bed: ICU [facility] Procedure: 0029-1280 DX/CHEST XRAY LINE PLACEMENT Exam Date: Exam Time: REPORT STATUS: Signed EXAM: [facility] ST XRAY LINE PLACEMENT, AP [...] KANDI ANAND DO CHEST SINGLE (PORTABLE)2018-05-30 14:49:00 [place] [address] Patient Name: INDRA GALVAN MR #: [id number] : [birth year] Age/Sex: 37/M Req #: [id number] Adm Physician: KIET DUMAS MD Ordered by: MARITZA SANTANA MD Report #: [id number] Location: ICU Room/Bed: ICU [facility] Procedure: 8028-4836 DX/CHEST SINGLE (PORTABLE) Exam Date: 05/30/18 Exam [...] COPY TO: MARITZA SANTANA MD Urine Legionella Ojdgktm9850-55-18 12:08:00* Test Item Value Reference Range Interpretation Comments Urine Legionella Antigen (test code = 07982-2) Negative Negativ e Presumptive negative for L. pneumophila serogroup 1 antigenin urine, suggesting no recent or current infection.Legionnaires' disease cannot be ruled out since o therserogroups and species may also cause disease.Performed at: [facility] [address] [place], [place] [id number] Director: Esdras Lemon MD, Phone: [phone] Health PlainviewUrine Legionella Axqgcgv3505-91-82 12:08:00* Test Item Value Reference Range Interpretation Comments Urine Legionella Antigen (test code = 62243-2) Negative Negativ e Presumptive negative for L. pneumophila serogroup 1 antigenin urine, suggesting no recent or current infection.Legionnaires' disease cannot be ruled out since o therserogroups and species may also cause disease.Performed at: [facility] [address] [place], [place] [id number] Director: Esdras Lemon MD, Phone: [phone] Health PlainviewHepatitis C Wrkwdgzk8681-68-31 11:20:00* Test Item Value Reference Range Interpretation Comments Hepatitis C Antibody (test code = 84592-9) 0.1 0.0-0.9 Negative: < 0.8 Indeterminate: 0.8 - 0.9 Positive: > 0.9 The CDC recommends that a positive HCV antibody result be followed up with a HCV Nucleic Acid Amplification test (811523).Performed at: [facility] [address] [place], [place] [id number] Director: Alli Georges MD, Phone: [phone] Health PlainviewHepatitis C Cdpcsvlu2673-64-90 11:20:00* Test Item Value Reference Range Interpretation Comments Hepatitis C Antibody (test code = 86664-8) 0.1 0.0-0.9 Negative: < 0.8 Indeterminate: 0.8 - 0.9 Positive: > 0.9 The CDC recommends that a positive HCV antibody result be followed up with a HCV Nucleic Acid Amplification test (124281).Performed at: [facility] [address] [place], [place] [id number] Director: Alli Georges MD, Phone: [phone] Health PlainviewUrine VSG5785-81-84 11:03:00* Test Item Value Reference Range Interpretation Comments Urine WBC (test code = 5821-4) 11-20 0-5 H [facility] PlainviewUrine ZFA7891-27-09 11:03:00* Test Item Value Reference Range Interpretation Comments Urine RBC (test code = 26393-9) NONE 0-5 [facility]viewUrine Wcjmiyhw9355-81-63 11:03:00* Test Item Value Reference Range Interpretation Comments Urine Bacteria (test code = 57826-8) FEW NONE [facility]viewUrine Epithelial Zitjp0504-32-31 11:03:00 * Test Item Value Reference Range Interpretation Comments Urine Epithelial Cells (test code = 87133-5) RARE NONE [facility]viewUrine Transitional Epithelial Cells 2018-05-30 11:03:00* Test Item Value Reference Range Interpretation Comments Urine Transitional Epithelial Cells (test code = 8249-5) FEW NONE [facility]viewUrine Transitional Epithelial Cells 2018-05-30 11:03:00* Test Item Value Reference Range Interpretation Comments Urine Transitional Epithelial Cells (test code = 8249-5) FEW NONE [facility]viewUrine Dyqpq5130-64-50 10:31:00* Test Item Value Reference Range Interpretation Comments Urine Color (test code = 5778-6) RED YELLOW H [facility]viewUrine Fcammlg8442-48-39 10:31:00* Test Item Value Reference Range Interpretation Comments Urine Clarity (test code = 70220-4) SL CLOUDY CLEAR H [facility]viewUrine Specific Qlbuwpu5252-84-78 10:31:00 * Test Item Value Reference Range Interpretation Comments Urine Specific [facility] (test code = 5811-5) 1.020 1.010-1.02 5 [facility]viewUrine cJ7514-29-54 10:31:00* Test Item Value Reference Range Interpretation Comments Urine pH (test code = 24335-2) 6 5-7 [facility]viewU[facility] Leukocyte Yyynubzj9937-42-10 10:31:00* Test Item Value Reference Range Interpretation Comments Urine Leukocyte Esterase (test code = 5799-2) NEGATIVE NEGATIVE [facility] Bsqusqw3784-31-21 10:31:00* Test Item Value Reference Range Interpretation Comments Urine Nitrite (test code = 07197-5) POSITIVE NEGATIVE H [facility] Eebfeff4679-16-65 10:31:00* Test Item Value Reference Range Interpretation Comments Urine Protein (test code = 5804-0) TRACE NEGATIVE H [facility]viewUrine Glucose (UA)2018-05-30 10:31:00* Test Item Value Reference Range Interpretation Comments Urine Glucose (UA) (test code = 2349-9) NEGATIVE NEGATIVE [facility]viewUrine Kavzcrw5325-80-53 10:31:00* Test Item Value Reference Range Interpretation Comments Urine Ketones (test code = 56362-7) NEGATIVE NEGATIVE [facility] Ffxowuxlgzhk9006-59-65 10:31:00* Test Item Value Reference Range Interpretation Comments Urine Urobilinogen (test code = 39064-3) 1 0.2-1 [facility]viewU[facility] Uuodxotzc9245-39-79 10:31:00* Test Item Value Reference Range Interpretation Comments Urine Bilirubin (test code = 1978-6) 3+ NEGATIVE H Confirmatory test currently unavailable. False positive results may occur.[facility] Tueme4543-27-03 10:31:00* Test Item Value Reference Range Interpretation Comments Urine Blood (test code = 13780-1) NEGATIVE NEGATIVE [facility]viewFolate2019-04-03 08:07:00* Test Item Value Reference Range Interpretation Comments Folate (test code = 2284-8) 30.1 7.0-15.4 H [facility]viewFolate2019-04-03 08:07:00* Test Item Value Reference Range Interpretation Comments Folate (test code = 2284-8) 30.1 7.0-15.4 H [facility]viewCHEST SINGLE (PORTABLE)2018-05-29 07:58:00 [facility] [address] [place] [address] Patient Name: INDRA GALVAN MR #: [id number] : 1980 Age/Sex: 37/M Req #: [id number] Adm Physician: KIET DUMAS MD Ordered by: KIRT SCHULTZ MD Report #: [id number] Location: [facility]/SURG3 Room/Bed: [facility] Procedure: [id number] DX /CHEST SINGLE (PORTABLE) Exam Date: 05/29/18 [...] Comments Vitamin B12 Level (test code = 37382-1) 1700 213-816 H [facility]viewVitamin B12 Yjdxi0863-03-12 07:19:00* Test Item Value Reference Range Interpretation Comments Vitamin B12 Level (test code = 87039-6) 1700 213-816 H [facility]2019-04-03 07:07:00* Test Item Value Reference Range Interpretation Comments Iron Level (test code = 2498-4) 61 65-175 L [facility]viewTotal Iron Binding Zemnspyg6551-09-89 07:07:00* Test Item Value Reference Range Interpretation Comments Total Iron Binding Capacity (test code = 2500-7) 116 261-4 78 L [facility] PlainviewPercent Iron Umitrfdxje3332-63-96 07:07:00* Test Item Value Reference Range Interpretation Comments Percent Iron Saturation (test code = 2502-3) 53 15-50 H [facility] PlainviewTransferrin2019-04-03 07:07:00* Test Item Value Reference Range Interpretation Comments Transferrin (test code = 3034-6) 83 174-364 L [facility] [place] [facility] Cwpnd7061-98-15 07:07:00* Test Item Value Reference Range Interpretation Comments Iron Level (test code = 2498-4) 61 65-175 L [facility]viewTotal Iron Binding Oklwmgqc0885-87-26 07:07:00* Test Item Value Reference Range Interpretation Comments Total Iron Binding Capacity (test code = 2500-7) 116 261-4 78 L [facility]viewPercent Iron Xhxhhfmmww1696-09-09 07:07:00* Test Item Value Reference Range Interpretation Comments Percent Iron Saturation (test code = 2502-3) 53 15-50 H [facility] PlainviewTransferrin2019-04-03 07:07:00* Test Item Value Reference Range Interpretation Comments Transferrin (test code = 3034-6) 83 174-364 L [facility]viewMyelocytes %2018-05-29 07:06:00* Test Item Value Reference Range Interpretation Comments Myelocytes % (test code = 749-2) 1 0-0 H [facility]viewMyelocytes %2018-05-29 07:06:00* Test Item Value Reference Range Interpretation Comments Myelocytes % (test code = 749-2) 1 0-0 H [facility] PlainviewPercent Reticulocyte Omock8702-60-13 06:26:00* Test Item Value Reference Range Interpretation Comments Percent Reticulocyte Count (test code = 79691-6) 6.4 0.8-2 .2 H [facility]viewPercent Reticulocyte Vgxbm7839-56-41 06:26:00* Test Item Value Reference Range Interpretation Comments Percent Reticulocyte Count (test code = 49870-5) 6.4 0.8-2 .2 H [facility] Be Iroyiao7742-91-50 05:14:00* Test Item Value Reference Range Interpretation Comments Hepatitis Be Antigen (test code = 24092-6) Negative Negative [facility] B Core Total Pmninabn6509-96-15 05:14:00* Test Item Value Reference Range Interpretation Comments Hepatitis B Core Total Antibody (test code = 37512-8) Negative Negative Performed at: - [facility] [id number] Director: Alli Georges MD, Phone: [phone] [place] [facility] B Surface Bircdlh9540-14-00 05:14:00* Test Item Value Reference Range Interpretation Comments Hepatitis B Surface Antigen (test code = 5196-1) Negative Negat mumtaz [facility] Be Faphrbl6954-33-12 05:14:00* Test Item Value Reference Range Interpretation Comments Hepatitis Be Antigen (test code = 61919-3) Negative Negative [facility]viewHefrench [facility] B Core Total Vzfiryer9647-07-24 05:14:00* Test Item Value Reference Range Interpretation Comments Hepatitis B Core Total Antibody (test code = 80432-2) Negative Negative Performed at: - [facility] [id number] Director: Alli Georges MD, Phone: [phone] Health PlainviewHepatitis B Surface Ogseuoo6414-75-36 05:14:00* Test Item Value Reference Range Interpretation Comments Hepatitis B Surface Antigen (test code = 5196-1) Negative Negat mumtaz [facility]viewProthrombin Hgif4950-75-70 00:09:00* Test Item Value Reference Range Interpretation Comments Prothrombin Time (test code = 5902-2) 15.5 11.9-14.5 H [facility] PlainviewProthromb Time International Ratio 2018-05-29 00:09:00* Test Item Value Reference Range Interpretation Comments Prothromb Time International Ratio (test code = 6301-6) 1.17 Oral Anticoagulant Therapy INR Values:1. Low Intensity Therapy 1.5 - 2.02 . Moderate Intensity Therapy 2.0 - 3.03. High Intensity Therapy(1) 2.5 - 3. 54. High Intensity Therapy(2) 3.0 - 4.05. Panic Value INR > 5.0 [facility] (1&2) Omoqzmwg3782-47-37 17:13:00* Test Item Value Reference Range Interpretation Comments HIV (1&2) Antibody (test code = 82897-7) NON-REACTIVE NONREACTIVE [facility] P24 Dfmkinv3980-37-53 17:13:00* Test Item Value Reference Range Interpretation Comments HIV P24 Antigen (test code = HIV P24 Antigen) NON-REACTIVE NONREACT MUMTAZ [facility] (1&2) Yrxrdorv9579-08-16 17:13:00* Test Item Value Reference Range Interpretation Comments HIV (1&2) Antibody (test code = 76520-9) NON-REACTIVE NONREACTIVE [facility] P24 Erchshd0483-35-71 17:13:00* Test Item Value Reference Range Interpretation Comments HIV P24 Antigen (test code = HIV P24 Antigen) NON-REACTIVE NONREACT MUMTAZ [facility] XR1809-60-15 12:56:00 [facility] [address] [place] [address] Patient Name: INDRA GALVAN MR #: [id number] : 1980 Age/Sex: 37/M Req #: [id number] Adm Physician: KIET DUMAS MD Ordered by: MANDEEP MARIE MD Report #: [id number] Location: MED/SURG3 Room/Bed: [facility] [...] 1308 COPY TO: MANDEEP MARIE MD Amylase Qzdqu3277-66-53 09:09:00* Test Item Value Reference Range Interpretation Comments Amylase Level (test code = 1798-8) 24 25-125 L [facility]viewLipase2019-04-02 09:09:00* Test Item Value Reference Range Interpretation Comments Lipase (test code = 3040-3) 28 8-78 [facility] PlainviewAmylase Jbbtb7362-06-36 09:09:00* Test Item Value Reference Range Interpretation Comments Amylase Level (test code = 1798-8) 24 25-125 L [facility] PlainviewLipase2019-04-02 09:09:00* Test Item Value Reference Range Interpretation Comments Lipase (test code = 3040-3) 28 8-[address] [facility]CHEST 2 KMJUZ9292-71-26 06:24:00 [facility] [address] [place] [address] Patient Name: INDRA GALVAN MR #: [id number] : 1980 Age/Sex: 37/M Req #: [id number] Adm Physician: KIET DUMAS MD Ordered by: ANAYA BUSTAMANTE MD Report #: [id number] Location: MED/SURG3 Room/Bed: [facility] [...] COPY TO: ANAYA BUSTAMANTE MD CT ABDOMEN/PELVIS S3105-16-74 20:09:00 [facility] [address] [place] [address] Patient Name: INDRA GALVAN MR #: [id number] : 1980 Age/Sex: 37/M Req #: [id number] Adm Physician: KIET DUMAS MD Ordered by: ANAYA BUSTAMANTE MD Report #: [id number] [facility]Bed: [place] [address] Procedure: 0401-[address]/CT ABDOMEN/PELVIS W Exam [...] on 05/27/182039 COPY TO: ANAYA BUSTAMANTE MD VPMHXTXYMSE6490-20-99 19:50:00 [place] [address] Patient Name: INDRA GALVAN MR #: [id number] : 1980 Age/Sex: 37/M Req #: [id number] Adm Physician: KIET DUMAS MD Ordered by: ANAYA BUSTAMANTE MD Report #: [id number] Location: [facility] Room/Bed: [place] [address] Procedure: 0401-0 013 US/US GALLBLADDER Exam Date: [...] TO: ANAYA BUSTAMANTE MD B- Type Natriuretic Wlvqvzh3446-32-24 17:56:00* Test Item Value Reference Range Interpretation Comments B-Type Natriuretic Peptide (test code = 78187-0) 221.6 0-[address] [facility] HospitalInfluenza Virus Types A,B Antigen 2018-05-27 17:30:00* Test Item Value Reference Range Interpretation Comments Influenza Virus Types A,B Antigen (test code = 01697-7) NEGATIVE NEGATIVE [facility]viewInfluenza Virus Types A,B Antigen 2018-05-27 17:30:00* Test Item Value Reference Range Interpretation Comments Influenza Virus Types A,B Antigen (test code = 09793-0) NEGATIVE NEGATIVE [facility]viewTroponin Z8929-12-84 17:28:00* Test Item Value Reference Range Interpretation Comments Troponin I (test code = TFH5864) 0.010 0-0.300 [facility]viewLactic Acid Spguw0096-85-39 17:20:00* Test Item Value Reference Range Interpretation Comments Lactic Acid Level (test code = Lactic Acid Level) 26.5 4.5- 19.8 Results repeated and called to Alina at 1720 on 05/27/18 by Kalin Almanza. Read ba ck and verified.[facility] PlainviewCHEST 2 ORTGW4175-66-19 15:47:00 [facility] [address] [place] [address] Patient Name: INDRA GALVAN MR #: [id number] : 1980 Age/Sex: 37/M Req #: [id number] Adm Physician: Ordered by: ANAYA BUSTAMANTE MD Report #: [id number] Location: ER Room/Bed: Procedure: [id number] DX/CHEST 2 VIEWS Exam Date: Exam Time: [...] 3:50 PM Dictated By: SONIA Jeffery MD [id number] Transcribed By: CATERINA on 05/27/18 8254 COPY TO: ANAYA BUSTAMANTE MD
--- NOTE | 2019-11-01 22:36 | Diagnostic Imaging Report ---
EXAM: CT Abdomen and Pelvis WITHOUT contrast INDICATION: ^Y ^liver cirhosis ^[id number] ^215 COMPARISON: CT dated 10/18/2019 TECHNIQUE: Abdomen and pelvis were scanned utilizing a multidetector helical scanner from the lung base to the pubic symphysis without administration of IV contrast. Absence of intravenous contrast decreases sensitivity for detection of focal lesions and vascular pathology. Coronal and sagittal reformations were obtained. Routine protocol was performed. IV CONTRAST: None ORAL CONTRAST: Water COMPLICATIONS: None RADIATION DOSE: Total DLP: ... mGy*cm Estimated effective dose: (DLP x 0.015 x size factor) mSv CTDIvol has been reviewed. It is below the limits set by the Radiation Protocol Committee (RPC). FINDINGS: LINES and TUBES: Distal tip of central line is visualized at cavoatrial junction. LOWER THORAX: Again seen bibasilar atelectasis. Hypodense blood pool, indicative of anemia. HEPATOBILIARY: Unenhanced liver is unremarkable. No biliary ductal dilation. GALLBLADDER: Cholelithiasis. Minimal contour nodularity. No wall thickening. SPLEEN: Splenomegaly. PANCREAS: No focal masses or ductal dilatation. ADRENALS: Stable 1.1 cm right adrenal nodule. No left adrenal nodule. KIDNEYS/URETERS: No hydronephrosis. Limited for evaluation of renal parenchyma without intravenous contrast. No stones. GI TRACT: No abnormal distention or evidence of bowel obstruction. Ascending colon wall thickening. Appendix is probably surgically absent. PELVIC ORGANS/BLADDER: Mild bladder wall thickening, could be due to incomplete distention. LYMPH NODES: No lymphadenopathy. Unchanged nonspecific prominent mesenteric lymph nodes. VESSELS: Unremarkable. PERITONEUM / RETROPERITONEUM: Small to moderate volume ascites. No free air. BONES: Chronic compression deformity of T10 vertebral body. SOFT TISSUES: Mild anasarca. IMPRESSION: 1. Limited study without intravenous contrast. 2. Cirrhotic liver. Signs of portal hypertension such as splenomegaly and small to moderate volume ascites. 3. Cholelithiasis without evidence of cholecystitis. 4. Ascending colon wall thickening, could be due to portal colopathy versus infectious/inflammatory colitis in the appropriate clinical context. Signed by: Dr. Tejas Casas MD on 11/01/2019 10:33 PM
[2019-11-01 22:51] LABS: AMMONIA > 1700 UG/DL (31-123)
[2019-11-01] MEDS ORDERED: LACTULOSE SYRUP 20 GM/30 ML UDC PO ONE (23:15)
[2019-11-01 23:20] VITALS: BP 97/48
[2019-11-02] VITALS (20 sets, daily range): BP systolic 79–101; BP diastolic 38–62
[2019-11-02] MEDS: LACTULOSE SYRUP 20 GM/30 ML UDC PO SCH ×6 (01:00→05:00)
[2019-11-02] MEDS ORDERED: SODIUM CHLORIDE 0.9% 500ML 500 ML ONE ×2 (01:06→03:56)
[2019-11-02] MEDS: METRONIDAZOLE 500MG/NS 100ML 100 ML IV SCH ×4 (01:29→18:22)
[2019-11-02 02:46] LABS: CREATINE KINASE MB 1.4 ng/mL (0-5.0)
[2019-11-02] MEDS ORDERED: HYDROXYZINE HCL25 MG (03:17)
[2019-11-02] MEDS ORDERED: ONDANSETRON HCL4 MG (03:17)
[2019-11-02] MEDS ORDERED: FUROSEMIDE80 MG (03:17)
[2019-11-02] MEDS ORDERED: ULTRAM 50MG50 MG (03:17)
[2019-11-02] MEDS ORDERED: MIDODRINE 2.5 MG TAB PO STA (03:57)
[2019-11-02] MEDS ORDERED: SODIUM CHLORIDE 0.9% 500ML 500 ML IV ONE (04:00)
[2019-11-02] MEDS ORDERED: CEFTRIAXONE SOD 1 GM VIAL IM STA (04:07)
[2019-11-02] MEDS ORDERED: CEFTRIAXONE SOD 1 GM/NS 50 ML 50 ML IV SCH (04:15)
[2019-11-02] MEDS ORDERED: CEFTRIAXONE SOD 1 GM VIAL IV SCH (04:15)
[2019-11-02] MEDS ORDERED: PHYTONADIONE 10MG/ML 2 ML ONE (04:27)
[2019-11-02] MEDS ORDERED: SODIUM CHLORIDE 0.9% 100 ML ONE (04:28)
[2019-11-02] MEDS ORDERED: PHYTONADIONE 10 MG/ML AMP IV ONE ×2 (04:30)
[2019-11-02] MEDS ORDERED: PHYTONADIONE 10MG/ML 20 MG in SODIUM CHLORIDE 0.9% 50ML 50 ML IV ONE (04:45)
[2019-11-02] MEDS: CEFTRIAXONE SOD 1 GM/NS 50 ML 50 ML IV SCH ×2 (05:04→18:22)
[2019-11-02] MEDS: OCTREOTIDE ACETATE 500 MCG in SODIUM CHLORIDE 0.9% 250ML 249 ML IV SCH ×2 (05:04→17:03)
[2019-11-02 05:28] LABS: ALANINE AMINOTRANSFERASE 38 IU/L (0-55); ALBUMIN 2.6 g/dL (3.5-5.0); ALBUMIN/GLOBULIN RATIO 1.5 (0.8-2.0); ALKALINE PHOSPHATASE 98 IU/L (40-150); ANION GAP 18.6 mmol/L (8-16); BLOOD UREA NITROGEN 80 mg/dL (7-26); BUN/CREATININE RATIO 20 (6-25); CALCIUM 7.8 mg/dL (8.4-10.2); CARBON DIOXIDE 23 mmol/L (22-29); CHLORIDE 100 mmol/L (98-107); CREATININE, SERUM 3.94 mg/dL (0.72-1.25); EST GLOMERULAR FILTRATION RATE 17 ML/MIN (60-); GLUCOSE 105 mg/dL (74-118); MAGNESIUM 1.9 MG/DL (1.3-2.1); PHOSPHORUS 4.2 MG/DL (2.3-4.7); POTASSIUM 3.6 mmol/L (3.5-5.1); SODIUM 138 mmol/L (136-145)
[2019-11-02 05:37] LABS: BASOPHILS # (AUTO) 0.1 (0.0-0.1); BASOPHILS % 0.3 % (0.0-1.0); EOSINOPHILS # (AUTO) 0.1 (0.0-0.4); EOSINOPHILS % 0.3 % (0.0-6.0); LYMPHOCYTES # (AUTO) 1.1 (1.0-3.2); LYMPHOCYTES % 6.5 % (18.0-39.1); MEAN CORPUSCULAR HEMOGLOBIN 32.2 pg (28-32); MEAN CORPUSCULAR VOLUME 91.9 fL (81-99); MONOCYTES # (AUTO) 1.4 (0.2-0.8); MONOCYTES % 8.1 % (4.4-11.3); NEUTROPHILS # (AUTO) 14.3 (2.1-6.9); NEUTROPHILS % 83.5 % (38.7-80.0); RED BLOOD COUNT 1.49 x10e6/uL (4.3-5.7); RED CELL DISTRIBUTION WIDTH 18.8 % (11.7-14.4)
[2019-11-02 05:43] LABS: HEMATOCRIT 13.7 % (38.2-49.6); HEMOGLOBIN 4.8 g/dL (14.0-18.0); PLATELET COUNT 90 x10e3/uL (140-360)
[2019-11-02] MEDS: PANTOPRAZOLE 40 MG 10ML VIAL IV SCH ×2 (05:56→15:40)
[2019-11-02 06:10] LABS: INR 1.78; PROTHROMBIN TIME 21.6 seconds (11.9-14.5)
[2019-11-02] MEDS ORDERED: SODIUM CHLORIDE 0.9% 250ML 250 ML IV ONE ×2 (06:15→17:00)
[2019-11-02 06:17] LABS: % IRON SATURATION 111 % (15-50); IRON 128 ug/dL (65-175); TOTAL IRON BINDING CAPACITY 115 ug/dL (261-478); TRANSFERRIN 82 mg/dL (174-364)
[2019-11-02] MEDS ORDERED: SODIUM CHLORIDE 0.9% 250ML 0 ML ONE (06:18)
[2019-11-02 06:35] LABS: FERRITIN > 2000.00 ng/mL (21.81-274.66)
[2019-11-02] MEDS: MIDODRINE 2.5 MG TAB PO SCH ×3 (07:31→15:40)
[2019-11-02 07:32] LABS: WBC,FECAL (FECAL LACTOFERRIN) POSITIVE (NEGATIVE)
--- NOTE | 2019-11-02 08:59 | NUR ---
H&P DOS: 10-31-20 at 10pm: cc: N/V/black stool HPI: alcoholic cirrhosis, GIB, ESRD on HD, HTN, Alcoholism, alcoholic pancreatitis, splenomegaly, thromboytopenia, jaundice, portal HTN SHx: HD access, Allergies; see emr FH/SH: alcoholism, meds; see MAR ROS; no f/c/s/ROBERSON/cp/sob/skin rash/dizziness/vision changes v/s revd PE tired appearing ICTERIC ns1s2 mod bs soft; left lower abdomen mild tenderness no e/t skin Yellow a&ox3; murdock flat affect labs/meds A/P: Severe anemia- blood transfusions Hyperbilirubinemia- due to cirrhosis GIB- IV PPI; gi eval Hypovolemic Shock- give blood; empiric abx coverage. N/V- antiemetics THrombocytopenia- due to cirrhosis and splenomegaly Splenomegaly Alcoholic cirrhosis- f/u [place] specialist [place]- consult nephrolog Portal HTN- propranolol when BP better Prop; scd; ppi dispo: IV ppi; GI consult; cct>35mins JENNYFER PARKER MD, PHD.
[2019-11-02] MEDS ORDERED: LACTULOSE SYRUP 20 GM/30 ML UDC PO SCH (09:00)
--- NOTE | 2019-11-02 09:00 | NUR ---
IM- progress note O/N see below ROS; no f/c/s/ROBERSON/cp/sob/skin rash/dizziness/vision changes v/s revd PE tired appearing ICTERIC ns1s2 mod bs soft; left lower abdomen mild tenderness no e/t skin Yellow a&ox3; murdock flat affect labs/meds A/P: Severe anemia- blood transfusions Hyperbilirubinemia- due to cirrhosis GIB- IV PPI; gi eval Hypovolemic Shock- give blood; empiric abx coverage. N/V- antiemetics THrombocytopenia- due to cirrhosis and splenomegaly Splenomegaly Alcoholic cirrhosis- f/u with transplant specialist [place]- consult nephrolog Portal HTN- propranolol when BP better Prop; scd; ppi dispo: IV ppi; GI consult; cct>35mins 9-6-20 got 2 units, give 2 more units PRBC; current on RA. HD pending; C.diff positive- start flagyl/po vanco; cct>35mins JENNYFER PARKER MD, PHD.
[2019-11-02] MEDS ORDERED: SODIUM CHLORIDE 0.9% 250ML 500 ML ONE (09:40)
[2019-11-02] MEDS: RIFAXIMIN 550 MG TABLET PO SCH ×2 (09:44→18:18)
[2019-11-02 13:09] LABS: C DIFFICILE TOXIN A&B AMP PROB **POSITIVE** (NEGATIVE)
[2019-11-02] MEDS: VANCOMYCIN 250MG/5ML ORAL SOLN PO SCH ×3 (14:15→18:19)
--- NOTE | 2019-11-02 14:26 | Consultation ---
DATE OF CONSULTATION: CHIEF COMPLAINT: Melanotic stool, history of cirrhosis, and severe anemia. HISTORY OF PRESENT ILLNESS: The patient is a 38-year-old man. He has cirrhosis and end-stage renal disease. He requires dialysis 3 times a week. He was hospitalized 2 to 3 weeks ago at [facility] with GI bleeding. His hemoglobin was 4.2 and he required packed red blood cells. He now returns with melanotic stool. He had some increased dyspnea. He also had some diarrhea. He has received 4 units of packed red blood cells so far. He also had an ultrasound-guided thoracentesis. His stool also showed C. difficile. PAST SURGICAL HISTORY: Status post tunneled dialysis catheter placement. PAST MEDICAL HISTORY: 1. Cirrhosis. 2. End-stage renal disease. 3. Hypertension. 4. Esophageal varices. 5. Hypertension. 6. Anemia. 7. Pancreatitis. SOCIAL HISTORY: The patient was a prior drinker. He is not a smoker. FAMILY HISTORY: The patient's family history is significant for hypertension. ALLERGIES: NO KNOWN DRUG ALLERGIES. REVIEW OF SYSTEMS: The patient has no fever. He has no headache. He is not having any neck pain. He has no chest pain. He is not having any cough or dyspnea. He does have some ascites and abdominal distention. He has some leg edema. PHYSICAL EXAMINATION: VITAL SIGNS: The patient is afebrile. Blood pressure is 91/46, saturation is 99% on room air, and the pulse is 75. HEENT: Shows no facial swelling or erythema. LYMPHATIC: Shows no submandibular, cervical, or supraclavicular adenopathy. CARDIAC: Reveals regular rate and rhythm with normal S1 and S2. LUNGS: Auscultation of lungs reveals decreased breath sounds at the bases. ABDOMEN: Soft. There is some ascites. EXTREMITIES: There is 1 to 2+ leg edema. NEUROLOGIC: There are no focal neurological abnormalities. LABORATORY DATA: Hemoglobin is 4.8 prior to packed red blood cells. White blood cell count is 17 and the platelet count is 90. The BUN to creatinine ratio is 80 to 3.94. Other electrolytes are within normal limits. IMPRESSION: 1. Anemia secondary to acute blood loss. 2. Upper gastrointestinal bleed secondary to esophageal gastric varices. 3. Cirrhosis. 4. Clostridium difficile colitis. 5. Thrombocytopenia. 6. Coagulopathy. PLAN: 1. Repeat CBC after receiving packed red blood cells. 2. FFP. 3. Schedule the patient for dialysis. 4. Octreotide. 5. Rifaximin. 6. Flagyl and vancomycin for C. difficile colitis. MD BRYSON Angela/SINDI /[id number]
[2019-11-02] MEDS ORDERED: VASOPRESSIN 60 UNIT in DEXTROSE 5% 50ML 57 ML IV STA (14:31)
[2019-11-02 15:33] LABS: BASOPHILS # (AUTO) 0.1 (0.0-0.1); BASOPHILS % 0.5 % (0.0-1.0); EOSINOPHILS # (AUTO) 0.3 (0.0-0.4); EOSINOPHILS % 1.3 % (0.0-6.0); HEMATOCRIT 23.2 % (38.2-49.6); LYMPHOCYTES # (AUTO) 1.3 (1.0-3.2); LYMPHOCYTES % 6.5 % (18.0-39.1); MEAN CORPUSCULAR HGB CONC 34.5 g/dL (31-35); MEAN CORPUSCULAR VOLUME 89.9 fL (81-99); MONOCYTES # (AUTO) 1.7 (0.2-0.8); MONOCYTES % 8.7 % (4.4-11.3); NEUTROPHILS # (AUTO) 15.9 (2.1-6.9); PLATELET COUNT 98 x10e3/uL (140-360); RED BLOOD COUNT 2.58 x10e6/uL (4.3-5.7); RED CELL DISTRIBUTION WIDTH 17.9 % (11.7-14.4)
[2019-11-02 15:52] LABS: ANION GAP 17.8 mmol/L (8-16); CREATININE, SERUM 4.38 mg/dL (0.72-1.25); POTASSIUM 3.8 mmol/L (3.5-5.1)
[2019-11-02] MEDS ORDERED: SODIUM CHLORIDE 0.9% 250ML 500 ML IV PRN (16:15)
[2019-11-02] MEDS ORDERED: SODIUM CHLORIDE 0.9% 1000ML 2,000 ML IV PRN (16:15)
[2019-11-02] MEDS ORDERED: MANNITOL 25% 12.5GM/50 ML VIAL IV PRN (16:15)
[2019-11-02] MEDS ORDERED: HEPARIN SOD (PORCINE) 1000 UNIT/ML SDV IV PRN (16:15)
[2019-11-02] MEDS ORDERED: ALBUMIN 25% 12.5GM 0.25 GM/ML BTL IV PRN (16:15)
[2019-11-02 16:20] LABS: CREATINE KINASE MB 1.1 ng/mL (0-5.0)
--- NOTE | 2019-11-02 17:42 | Consultation ---
DATE OF CONSULTATION: 11/02/2019 HISTORY OF PRESENT ILLNESS: A 38-year-old gentleman known to our Nephrology Service, underlying history of cirrhosis and end-stage renal disease, presented with GI bleed and C. difficile positive. Received 4 units of packed RBC, yet to get 2 more units Jumbo FFP. He is currently lying supine, in no apparent distress. Has been on lactulose as well. Denies any nausea, vomiting, or shortness of breath. LABORATORY TEST: Shows a hemoglobin of 4.8 with a white count 17.0. His chemistry; sodium 138, potassium 3.6, BUN and creatinine 80 and 3.9 with a ferritin level more than 2000. His total bilirubin is more than 25 and AST 87. ALLERGIES: NO APPARENT DRUG ALLERGIES. SOCIAL HISTORY: The patient does not smoke or drink. FAMILY HISTORY: Significant for hypertension. CURRENT MEDICATIONS: On ceftriaxone and metronidazole 500 mg IV q.8. He is also on octreotide drip. He has been started on midodrine 10 mg p.o. t.i.d., Protonix IV, and vancomycin 125 mg p.o. q.6. PAST MEDICAL HISTORY: Underlying cirrhosis of liver, portal hypertension, prior esophageal varices, GI bleed, history of prior alcoholism, hypertension, and end-stage renal disease. He has a right-sided tunneled dialysis catheter. PHYSICAL EXAMINATION: GENERAL: Awake, alert, and oriented x3, lying supine, in no apparent distress. VITAL SIGNS: Blood pressure 92/45, pulse rate 53, afebrile, and oxygen saturation 100%. HEAD AND NECK: Cornea clear. Oral mucosa moist. Neck veins flat. LUNGS: Decreased air entry right base. No rales. HEART: S1 and S2 audible. ABDOMEN: Otherwise soft and nontender. No apparent visceromegaly. EXTREMITIES: Lower extremity examination shows no edema. DIAGNOSTIC DATA: CT abdomen shows cirrhotic liver, cholelithiasis, ascending colon wall thickening. IMPRESSION AND PLAN: Underlying anemia, gastrointestinal bleed, end-stage renal disease, stable volume status. I will repeat potassium. The patient to get packed RBC, significantly jaundiced with conjunctival icterus as well as skin is pale. GI following, on octreotide. Plan dialysis if further packed RBCs are needed or if potassium is elevated. Discussed with stock and station agent and bedside RN. MD SUMAN Miranda/MARUL /[id number]
--- NOTE | 2019-11-02 18:00 | NUR ---
Dr. Kenisha Govea consulted as casual shoe inspector, and informed of consult. Parecentesis only done to tap for lab sample, no other fluid removed by IR DR. Pt having large amounts of black liquid stool. Patient positive for C Diff Dr. Kay and Dr. Kenisha govea aware of stool appearance. Orders given for oral vancomycin. Pt received a total of 3 units PRBC's during shift and 2 FFP JUMBO units. CBC and BMP repeated at 1500, Dr. Mcghee informed of lab results. Dialysis done, no fluid removed ( 2 units FFP and 1 unit PRBC administered during dialysis). See blood product monitoring paper work in patient's chart. No s/s of transfusion reaction noted. Patient denies any s/s of distress.
[2019-11-02] MEDS: CHOLESTYRAMINE 4 GM PACKET PO SCH (18:19)
[2019-11-02 18:23] LABS: BODY FLUID APPEARANCE SL.CLOUDY; BODY FLUID COLOR YELLOW; BODY FLUID TYPE PERITONEAL
[2019-11-02 18:33] LABS: RBC,BODY FLUID 4638 cells/uL; WBC,BODY FLUID 30 cells/uL
[2019-11-02 18:34] LABS: LYMPHOCYTES,BODY FLUID 26 %; MONO/MACROPHG,BODY FLUID 28 %; NEUTROPHILS,BODY FLUID 44 %; OTHER CELLS,BODY FLUID 2 %
[2019-11-03] VITALS (24 sets, daily range): BP systolic 82–130; BP diastolic 45–57
[2019-11-03] MEDS: OCTREOTIDE ACETATE 500 MCG in SODIUM CHLORIDE 0.9% 250ML 249 ML IV SCH ×3 (00:15→16:30)
[2019-11-03] MEDS: VANCOMYCIN 250MG/5ML ORAL SOLN PO SCH ×5 (00:31→17:38)
[2019-11-03] MEDS: METRONIDAZOLE 500MG/NS 100ML 100 ML IV SCH ×3 (00:31→11:16)
[2019-11-03] MEDS: CHOLESTYRAMINE 4 GM PACKET PO SCH ×4 (00:31→19:05)
[2019-11-03 05:21] LABS: BASOPHILS # (AUTO) 0.1 (0.0-0.1); BASOPHILS % 0.7 % (0.0-1.0); EOSINOPHILS # (AUTO) 0.3 (0.0-0.4); EOSINOPHILS % 2.8 % (0.0-6.0); LYMPHOCYTES # (AUTO) 0.6 (1.0-3.2); MEAN CORPUSCULAR VOLUME 89.2 fL (81-99); MONOCYTES # (AUTO) 1.1 (0.2-0.8); MONOCYTES % 8.9 % (4.4-11.3); NEUTROPHILS # (AUTO) 10.1 (2.1-6.9); NEUTROPHILS % 81.6 % (38.7-80.0); PLATELET COUNT 64 x10e3/uL (140-360); RED BLOOD COUNT 2.12 x10e6/uL (4.3-5.7)
[2019-11-03] MEDS: PANTOPRAZOLE 40 MG 10ML VIAL IV SCH ×2 (05:25→17:34)
[2019-11-03] MEDS: CEFTRIAXONE SOD 1 GM/NS 50 ML 50 ML IV SCH (05:25)
[2019-11-03 05:31] LABS: HEMATOCRIT 18.9 % (38.2-49.6)
[2019-11-03 05:48] LABS: ALANINE AMINOTRANSFERASE 39 IU/L (0-55); ALBUMIN 2.7 g/dL (3.5-5.0); ALBUMIN/GLOBULIN RATIO 1.4 (0.8-2.0); ALKALINE PHOSPHATASE 99 IU/L (40-150); ANION GAP 17.4 mmol/L (8-16); BLOOD UREA NITROGEN 50 mg/dL (7-26); BUN/CREATININE RATIO 14 (6-25); CARBON DIOXIDE 21 mmol/L (22-29); CHLORIDE 102 mmol/L (98-107); CREATININE, SERUM 3.46 mg/dL (0.72-1.25); EST GLOMERULAR FILTRATION RATE 20 ML/MIN (60-); GLUCOSE 77 mg/dL (74-118); POTASSIUM 3.4 mmol/L (3.5-5.1); SODIUM 137 mmol/L (136-145)
[2019-11-03] MEDS: MIDODRINE 2.5 MG TAB PO SCH ×3 (08:02→17:34)
[2019-11-03] MEDS: RIFAXIMIN 550 MG TABLET PO SCH ×2 (08:02→17:34)
[2019-11-03] MEDS ORDERED: SODIUM CHLORIDE 0.9% 250ML 250 ML IV ONE ×2 (10:15→12:00)
--- NOTE | 2019-11-03 11:00 | NUR ---
Spoke with Dr Laine Sam, will give 1 unit PRBC with hemodialysis today.
[2019-11-03] MEDS ORDERED: SODIUM CHLORIDE 0.9% 250ML 250 ML ONE ×2 (11:10→16:54)
[2019-11-03] MEDS ORDERED: ACETAMINOPHEN 325 MG TAB PO ONE (11:49)
[2019-11-03 12:51] LABS: BILIRUBIN,DIRECT > 15.0 mg/dL (0.0-0.5)
--- NOTE | 2019-11-03 14:45 | Progress Note ---
DATE: SUBJECTIVE: The patient is feeling better. He is awaiting dialysis today. He is scheduled to receive additional packed red blood cells during dialysis. PHYSICAL EXAMINATION: VITAL SIGNS: Blood pressure 99/50, saturation is 96%, pulse is 60. HEENT: No facial swelling or erythema. LYMPHATIC: No submandibular, cervical, or supraclavicular adenopathy. CARDIAC: Regular rate and rhythm with normal S1, S2. LUNGS: Auscultation of the lungs reveals rhonchorous breath sounds bilaterally. There is no wheezing. ABDOMEN: Soft, nontender. There is no rebound or guarding. EXTREMITIES: No leg edema or calf tenderness. There is no cyanosis or clubbing. SKIN: No rashes. LABORATORY DATA: White blood cell count is 12.3, hemoglobin is 7 and the platelet count is 64,000. The BUN to creatinine ratio is 50 to 3.64. Other electrolytes are within normal limits. PT is 21.6. IMPRESSION: 1. Anemia secondary to acute blood loss. 2. Upper GI bleeding secondary to esophageal and gastric varices. 3. Cirrhosis. 4. Clostridium difficile colitis. 5. Coagulopathy. 6. Thrombocytopenia. 7. End-stage renal disease. PLAN: 1. Dialysis today. 2. Additional packed red blood cells during dialysis. 3. Continue vancomycin and Flagyl. 4. Continue octreotide and rifaximin. 5. GI considering repeat endoscopy. Max Govea MD LM/MODL /[id number]
--- NOTE | 2019-11-03 14:55 | Consultation ---
DATE OF CONSULTATION: 11/03/2019 Infectious Disease Consultation I would like to thank Dr. Bob Kay for this interesting consult. HISTORY OF PRESENT ILLNESS: This is a very pleasant male with past medical history of hypertension, end-stage renal disease, esophageal varices, anemia, pancreatitis, and liver cirrhosis. The patient is on dialysis 3 times a week, was initially hospitalized about 2 weeks back at [facility] with GI bleeding. At that time, the patient's hemoglobin was 4.2, now the patient has been presenting to the hospital with dark stools and shortness of breath. The patient has been having diarrhea almost about 10 to 12 times per day. His initial testing is positive for C diff, so our service has been asked to evaluate and give recommendations. PAST SURGICAL HISTORY: Positive for hemodialysis catheter placement. PAST MEDICAL HISTORY: As mentioned above. FAMILY HISTORY: Positive for hypertension. SOCIAL HISTORY: The patient was an alcohol user, no history of sexually transmitted disease, and lives at home with family. ALLERGIES: NO KNOWN DRUG ALLERGIES. REVIEW OF SYSTEMS: Fourteen-point review of systems were checked and all negative except for above. PHYSICAL EXAMINATION: VITAL SIGNS: Temperature is 98.1, respiratory rate is 19, heart rate is 64, and blood pressure 100/57. GENERAL: The patient is awake and comfortable, able to talk in full sentences. Chest: Clear to auscultation bilaterally. HEART: S1, S2 are normal. NEUROLOGIC: Alert and oriented x3. GI: Soft. ASSESSMENT: This is a 38-year-old male with past medical history of end-stage renal disease, liver cirrhosis, and esophageal varices, presents with diarrhea due to Clostridium difficile colitis. PLAN: 1. The patient will be on p.o. vancomycin 250 mg q.6 hours. 2. Further recommendations to follow. Thank you for letting me to participate in the care of your patient. Alessandra Lay MD FT/MODL /[id number]
[2019-11-04] VITALS (24 sets, daily range): BP systolic 95–139; BP diastolic 45–67
[2019-11-04] MEDS: VANCOMYCIN 250MG/5ML ORAL SOLN PO SCH ×5 (00:42→23:09)
[2019-11-04] MEDS: CHOLESTYRAMINE 4 GM PACKET PO SCH ×5 (00:42→23:09)
[2019-11-04] MEDS: OCTREOTIDE ACETATE 500 MCG in SODIUM CHLORIDE 0.9% 250ML 249 ML IV SCH ×3 (02:13→23:00)
[2019-11-04 04:44] LABS: BASOPHILS # (AUTO) 0.1 (0.0-0.1); BASOPHILS % 0.6 % (0.0-1.0); EOSINOPHILS # (AUTO) 0.6 (0.0-0.4); EOSINOPHILS % 3.3 % (0.0-6.0); HEMATOCRIT 25.1 % (38.2-49.6); HEMOGLOBIN 9.1 g/dL (14.0-18.0); LYMPHOCYTES # (AUTO) 0.5 (1.0-3.2); LYMPHOCYTES % 2.9 % (18.0-39.1); MEAN CORPUSCULAR HGB CONC 36.3 g/dL (31-35); MEAN CORPUSCULAR VOLUME 88.4 fL (81-99); MONOCYTES # (AUTO) 1.3 (0.2-0.8); MONOCYTES % 7.5 % (4.4-11.3); NEUTROPHILS # (AUTO) 14.2 (2.1-6.9); NEUTROPHILS % 83.9 % (38.7-80.0); PLATELET COUNT 60 x10e3/uL (140-360); RED BLOOD COUNT 2.84 x10e6/uL (4.3-5.7); RED CELL DISTRIBUTION WIDTH 16.2 % (11.7-14.4)
[2019-11-04 05:07] LABS: ALANINE AMINOTRANSFERASE 38 IU/L (0-55); ALBUMIN 2.8 g/dL (3.5-5.0); ALBUMIN/GLOBULIN RATIO 1.4 (0.8-2.0); ALKALINE PHOSPHATASE 102 IU/L (40-150); ANION GAP 15.7 mmol/L (8-16); BLOOD UREA NITROGEN 29 mg/dL (7-26); BUN/CREATININE RATIO 10 (6-25); CALCIUM 7.7 mg/dL (8.4-10.2); CARBON DIOXIDE 21 mmol/L (22-29); CHLORIDE 103 mmol/L (98-107); EST GLOMERULAR FILTRATION RATE 23 ML/MIN (60-); GLUCOSE 111 mg/dL (74-118); POTASSIUM 3.7 mmol/L (3.5-5.1); SODIUM 136 mmol/L (136-145)
[2019-11-04] MEDS: PANTOPRAZOLE 40 MG 10ML VIAL IV SCH ×2 (05:21→15:45)
[2019-11-04 06:15] LABS: INR 1.77; PROTHROMBIN TIME 21.5 seconds (11.9-14.5)
[2019-11-04] MEDS: MIDODRINE 2.5 MG TAB PO SCH ×3 (08:00→15:43)
[2019-11-04] MEDS: RIFAXIMIN 550 MG TABLET PO SCH ×2 (08:17→17:36)
--- NOTE | 2019-11-04 10:13 | Progress Note ---
DATE: SUBJECTIVE: The patient is not having any further melena or bleeding. He has less diarrhea. He is waiting for endoscopy today. PHYSICAL EXAMINATION: VITAL SIGNS: The patient is afebrile. The blood pressure is 124/53 and the pulse is 62. The saturation is 96% on 2 L. HEENT: No facial swelling or erythema. LYMPHATIC: No submandibular, cervical, or supraclavicular adenopathy. CARDIAC: Regular rate and rhythm with normal S1, S2. LUNGS: Auscultation of lungs shows decreased breath sounds at the bases. There is no wheezing. ABDOMEN: Soft, nontender. There is no rebound or guarding. EXTREMITIES: No leg edema or calf tenderness. There is no cyanosis or clubbing. SKIN: No rashes. NEUROLOGICAL: No focal abnormalities. LABORATORY DATA: White blood cell count is 16.99, hemoglobin is 9.1. The platelet count is 60. The BUN to creatinine ratio is 29 to 3. Carbon dioxide of 21. The other electrolytes are within normal limits. Albumin is 2.8. IMPRESSION: 1. Anemia secondary to acute blood loss. 2. Upper gastrointestinal bleed, probably secondary to esophageal varices. 3. Cirrhosis. 4. Clostridium difficile colitis. 5. Coagulopathy. 6. Thrombocytopenia. 7. End-stage renal disease. PLAN: 1. Await endoscopy later today. 2. Continue current antibiotics. 3. Continue octreotide and rifaximin. 4. Out of bed as tolerated. 5. Venous arterial studies to evaluate for subclavian stenosis. Max Govea MD [facility]/SINDI /[id number]
--- NOTE | 2019-11-04 14:24 | NUR ---
IM- progress note O/N see below ROS; no f/c/s/ROBERSON/cp/sob/skin rash/dizziness/vision changes v/s revd PE tired appearing ICTERIC ns1s2 mod bs soft; left lower abdomen mild tenderness no e/t skin Yellow a&ox3; murdock flat affect labs/meds A/P: Severe anemia- blood transfusions Hyperbilirubinemia- due to cirrhosis GIB- IV PPI; gi eval Hypovolemic Shock- give blood; empiric abx coverage. N/V- antiemetics THrombocytopenia- due to cirrhosis and splenomegaly Splenomegaly Alcoholic cirrhosis- f/u with transplant specialist [place]- consult nephrolog Portal HTN- propranolol when BP better Prop; scd; ppi dispo: IV ppi; GI consult; cct>35mins 9-6-20 got 2 units, give 2 more units PRBC; current on RA. HD pending; C.diff positive- start flagyl/po vanco; cct>35mins 9-7 hemodynamically stable; give more blood; 9-8 Endoscopy pending; cont support. JENNYFER PARKER MD, PHD.
--- NOTE | 2019-11-04 14:31 | Diagnostic Imaging Report ---
Exam: KUB - 2 views Indication: Hypovolemic shock Comparison: CT abdomen and pelvis of 11/01/2019 Findings: Several dilated loops of small bowel in the left abdomen measure up to 4.6 cm. No free air. No acute osseous injury. Metallic embolization coils in the right lower quadrant. Impression: Several dilated loops of small bowel in the left abdomen measure up to 4.6 cm and can be seen in the setting of ileus or partial small bowel obstruction. No free air. Signed by: Srinivasan Myers MD on 11/04/2019 2:28 PM
--- NOTE | 2019-11-04 15:37 | NUR ---
Blood pressure disparity. The upper extremities demonstrating systolic bp's of 90's and the lower extremities demonstrating systolic bp's of 130's. The patient reports the hemodialysis nurses commonly use his right leg due to this ongoing problem. Dr Kenisha Govea notified and ordered doppler studies. Dr Kenisha Govea has advised to use the right leg at this time for consistency of blood pressures.
--- NOTE | 2019-11-04 16:11 | NUR ---
Dr Samm Kay has been notified regarding the blood pressure disparity. Dr Kay advised for nursing to hand off that the leg will be used for blood pressures for consistency of results.
[2019-11-05] VITALS (21 sets, daily range): BP systolic 103–147; BP diastolic 44–76
[2019-11-05] MEDS: OCTREOTIDE ACETATE 500 MCG in SODIUM CHLORIDE 0.9% 250ML 249 ML IV SCH ×2 (01:43→20:08)
[2019-11-05 04:51] LABS: BASOPHILS # (AUTO) 0.1 (0.0-0.1); BASOPHILS % 0.7 % (0.0-1.0); EOSINOPHILS # (AUTO) 0.6 (0.0-0.4); EOSINOPHILS % 3.8 % (0.0-6.0); HEMATOCRIT 28.2 % (38.2-49.6); HEMOGLOBIN 9.7 g/dL (14.0-18.0); LYMPHOCYTES # (AUTO) 0.6 (1.0-3.2); LYMPHOCYTES % 3.7 % (18.0-39.1); MEAN CORPUSCULAR HEMOGLOBIN 30.8 pg (28-32); MEAN CORPUSCULAR HGB CONC 34.4 g/dL (31-35); MEAN CORPUSCULAR VOLUME 89.5 fL (81-99); MONOCYTES # (AUTO) 1.2 (0.2-0.8); MONOCYTES % 7.9 % (4.4-11.3); NEUTROPHILS # (AUTO) 12.2 (2.1-6.9); NEUTROPHILS % 81.8 % (38.7-80.0); PLATELET COUNT 74 x10e3/uL (140-360); RED BLOOD COUNT 3.15 x10e6/uL (4.3-5.7); RED CELL DISTRIBUTION WIDTH 17.5 % (11.7-14.4)
[2019-11-05] MEDS: CHOLESTYRAMINE 4 GM PACKET PO SCH ×3 (04:52→16:51)
[2019-11-05] MEDS: PANTOPRAZOLE 40 MG 10ML VIAL IV SCH ×2 (04:52→17:46)
[2019-11-05 05:14] LABS: ANION GAP 15.7 mmol/L (8-16); CALCIUM 7.9 mg/dL (8.4-10.2); CREATININE, SERUM 3.75 mg/dL (0.72-1.25); POTASSIUM 3.7 mmol/L (3.5-5.1)
[2019-11-05] MEDS: VANCOMYCIN 250MG/5ML ORAL SOLN PO SCH ×3 (05:16→16:50)
--- NOTE | 2019-11-05 06:35 | NUR ---
IM- progress note O/N see below ROS; no f/c/s/ROBERSON/cp/sob/skin rash/dizziness/vision changes v/s revd PE tired appearing ICTERIC ns1s2 mod bs soft; left lower abdomen mild tenderness no e/t skin Yellow a&ox3; murdock flat affect labs/meds A/P: Severe anemia- blood transfusions Hyperbilirubinemia- due to cirrhosis GIB- IV PPI; gi eval Hypovolemic Shock- give blood; empiric abx coverage. N/V- antiemetics THrombocytopenia- due to cirrhosis and splenomegaly Splenomegaly Alcoholic cirrhosis- f/u with transplant specialist [place]- consult nephrolog Portal HTN- propranolol when BP better Prop; scd; ppi dispo: IV ppi; GI consult; cct>35mins 9-6-20 got 2 units, give 2 more units PRBC; current on RA. HD pending; C.diff positive- start flagyl/po vanco; cct>35mins 9-7 hemodynamically stable; give more blood; 9-8 Endoscopy pending; cont support. 9-9 ileus; f/u endoscopy; JENNYFER PARKER MD, PHD.
[2019-11-05] MEDS ORDERED: SODIUM CHLORIDE 0.9% 500ML 500 ML ONE (06:41)
--- NOTE | 2019-11-05 07:46 | NUR ---
PT OUT TO EGD
[2019-11-05] MEDS: MIDODRINE 2.5 MG TAB PO SCH ×3 (09:16→16:50)
[2019-11-05] MEDS: RIFAXIMIN 550 MG TABLET PO SCH ×2 (09:17→16:50)
--- NOTE | 2019-11-05 09:18 | Operative Report ---
DATE OF PROCEDURE: 11/05/2019 SURGEON: Sp Sam MD PROCEDURE: EGD. INDICATIONS FOR EGD: Anemia, history of melena, cirrhosis of the liver. MEDICATIONS: The patient was done under MAC, please see anesthesiologist's note. PROCEDURE IN DETAIL: With the patient in left lateral decubitus position, a flexible fiberoptic Olympus gastroscope was introduced into the esophagus under direct visualization without any difficulty. There was some grade 1 to 2 esophageal varices without active bleeding or stigmata of recent hemorrhage. The scope was then advanced with ease into the stomach and the mucosa overlying the antrum and the body revealed diffuse portal hypertensive gastropathy. The pylorus was intubated with ease and the scope was advanced all the way to the second portion of the duodenum. The scope was then withdrawn slowly, mucosa overlying the proximal second portion and duodenal bulb appeared to be within normal limits. The scope was then withdrawn back into the stomach and retroflexed, and there were similar portal hypertensive gastropathy findings noted in the fundus as well. There were no cardiac varices. The scope was then straightened out, it was subsequently withdrawn. The patient tolerated the procedure well. IMPRESSION: 1. Grade 1 to 2 esophageal varices without active bleeding or stigmata of recent hemorrhage. 2. Portal hypertensive gastropathy. PLAN: 1. Follow H and H. 2. Continue current therapy. 3. Resume diet. Sp Sam MD [facility] [place] /[id number] cc: Bob Kay MD
[2019-11-05] MEDS ORDERED: LIDOCAINE HCL 2% LOCAL INJ 5 ML SDV VIAL INJ ONE (21:33)
[2019-11-05] MEDS ORDERED: PROPOFOL IV EMULSION 10 MG/ML 20 ML VIAL ONE (21:33)
[2019-11-05] MEDS ORDERED: FENTANYL CITRATE/PF 100MCG/2 ML INJ ONE (21:44)
--- NOTE | 2019-11-05 23:20 | NUR ---
Report to Camryn RN, and pt transferred to [facility] via . Primary RN received pt @ BS.
[2019-11-06 00:02] VITALS: BP 125/53
[2019-11-06] MEDS: CHOLESTYRAMINE 4 GM PACKET PO SCH ×4 (00:10→17:54)
[2019-11-06] MEDS: VANCOMYCIN 250MG/5ML ORAL SOLN PO SCH ×4 (00:11→17:20)
[2019-11-06 04:00] VITALS: BP 132/64
[2019-11-06] MEDS: PANTOPRAZOLE 40 MG 10ML VIAL IV SCH ×2 (04:42→16:24)
[2019-11-06] MEDS: OCTREOTIDE ACETATE 500 MCG in SODIUM CHLORIDE 0.9% 250ML 249 ML IV SCH ×2 (04:42→17:20)
[2019-11-06 04:52] LABS: BASOPHILS # (AUTO) 0.1 (0.0-0.1); BASOPHILS % 0.6 % (0.0-1.0); EOSINOPHILS # (AUTO) 0.5 (0.0-0.4); EOSINOPHILS % 3.7 % (0.0-6.0); HEMATOCRIT 26.9 % (38.2-49.6); HEMOGLOBIN 9.4 g/dL (14.0-18.0); LYMPHOCYTES # (AUTO) 0.5 (1.0-3.2); LYMPHOCYTES % 3.6 % (18.0-39.1); MEAN CORPUSCULAR HEMOGLOBIN 31.9 pg (28-32); MEAN CORPUSCULAR HGB CONC 34.9 g/dL (31-35); MEAN CORPUSCULAR VOLUME 91.2 fL (81-99); MONOCYTES # (AUTO) 1.2 (0.2-0.8); MONOCYTES % 9.1 % (4.4-11.3); NEUTROPHILS # (AUTO) 10.4 (2.1-6.9); NEUTROPHILS % 81.4 % (38.7-80.0); RED BLOOD COUNT 2.95 x10e6/uL (4.3-5.7); RED CELL DISTRIBUTION WIDTH 18.5 % (11.7-14.4)
[2019-11-06 05:01] LABS: PLATELET COUNT 45 x10e3/uL (140-360)
--- NOTE | 2019-11-06 05:04 | NUR ---
CALLED TO NOTIFY DR ROBERTSON OF PT PLT COUNT AT 45 NO NEW ORDERS AT THIS TIME SAYS WE WILL KEEP EYE ON IT. WILL CONT TO MONITOR.
[2019-11-06 05:17] LABS: ALANINE AMINOTRANSFERASE 38 IU/L (0-55); ALBUMIN 2.7 g/dL (3.5-5.0); ALBUMIN/GLOBULIN RATIO 1.4 (0.8-2.0); ALKALINE PHOSPHATASE 110 IU/L (40-150); ANION GAP 17.8 mmol/L (8-16); BLOOD UREA NITROGEN 22 mg/dL (7-26); BUN/CREATININE RATIO 7 (6-25); CALCIUM 7.7 mg/dL (8.4-10.2); CARBON DIOXIDE 19 mmol/L (22-29); CHLORIDE 105 mmol/L (98-107); CREATININE, SERUM 2.95 mg/dL (0.72-1.25); EST GLOMERULAR FILTRATION RATE 24 ML/MIN (60-); GLUCOSE 89 mg/dL (74-118); POTASSIUM 3.8 mmol/L (3.5-5.1); SODIUM 138 mmol/L (136-145)
--- NOTE | 2019-11-06 06:19 | NUR ---
IM- progress note O/N see below ROS; no f/c/s/ROBERSON/cp/sob/skin rash/dizziness/vision changes v/s revd PE tired appearing ICTERIC ns1s2 mod bs soft; left lower abdomen mild tenderness no e/t skin Yellow a&ox3; murdock flat affect labs/meds A/P: Severe anemia- blood transfusions Hyperbilirubinemia- due to cirrhosis GIB- IV PPI; gi eval Hypovolemic Shock- give blood; empiric abx coverage. N/V- antiemetics THrombocytopenia- due to cirrhosis and splenomegaly Splenomegaly Alcoholic cirrhosis- f/u with transplant specialist [place]- consult nephrolog Portal HTN- propranolol when BP better Prop; scd; ppi dispo: IV ppi; GI consult; cct>35mins 9-6-20 got 2 units, give 2 more units PRBC; current on RA. HD pending; C.diff positive- start flagyl/po vanco; cct>35mins 9-7 hemodynamically stable; give more blood; 9-8 Endoscopy pending; cont support. 9-9 ileus; f/u endoscopy; 9-10 f/u endoscopy= Esophageal varices and Portal gastropathy. s/p paracentesis; transfuse plts if <20K JENNYFER PARKER MD, PHD.
[2019-11-06 07:00] VITALS: BP 134/61
[2019-11-06] MEDS: MIDODRINE 2.5 MG TAB PO SCH ×3 (09:29→16:00)
[2019-11-06] MEDS: RIFAXIMIN 550 MG TABLET PO SCH ×2 (09:29→16:24)
[2019-11-06 10:38] VITALS: BP 134/61
[2019-11-06 11:00] VITALS: BP 142/67
--- NOTE | 2019-11-06 12:25 | Diagnostic Imaging Report ---
EXAM: Limited abdominal ultrasound INDICATION: Ascites, abdominal pain COMPARISON: None. TECHNIQUE: Transverse and longitudinal images of the 4 quadrants of the abdomen were obtained FINDINGS: Moderate ascites. Mildly nodular liver surface contour. IMPRESSION: Moderate ascites. Signed by: Srinivasan Myers MD on 11/06/2019 12:22 PM
[2019-11-06 14:38] LABS: BASOPHILS # (AUTO) 0.1 (0.0-0.1); BASOPHILS % 0.8 % (0.0-1.0); EOSINOPHILS # (AUTO) 0.5 (0.0-0.4); EOSINOPHILS % 4.4 % (0.0-6.0); HEMATOCRIT 28.6 % (38.2-49.6); HEMOGLOBIN 9.9 g/dL (14.0-18.0); LYMPHOCYTES # (AUTO) 0.4 (1.0-3.2); LYMPHOCYTES % 3.6 % (18.0-39.1); MEAN CORPUSCULAR HEMOGLOBIN 31.5 pg (28-32); MEAN CORPUSCULAR HGB CONC 34.6 g/dL (31-35); MEAN CORPUSCULAR VOLUME 91.1 fL (81-99); MONOCYTES # (AUTO) 1.3 (0.2-0.8); MONOCYTES % 10.3 % (4.4-11.3); NEUTROPHILS # (AUTO) 9.7 (2.1-6.9); NEUTROPHILS % 79.8 % (38.7-80.0); RED BLOOD COUNT 3.14 x10e6/uL (4.3-5.7); RED CELL DISTRIBUTION WIDTH 19.1 % (11.7-14.4)
[2019-11-06 14:41] LABS: PLATELET COUNT 45 x10e3/uL (140-360)
[2019-11-06 15:00] VITALS: BP 134/62
--- NOTE | 2019-11-06 15:10 | Diagnostic Imaging Report ---
PROCEDURE: Ultrasound-guided paracentesis Procedural Personnel Attending physician(s): Srinivasan Myers MD Pre-procedure diagnosis: Ascites Post-procedure diagnosis: Unchanged Indication: Abdominal pain, ascites Additional clinical history: None Complications: No immediate complications. IMPRESSION: Ultrasound-guided paracentesis with drainage of 1200 mL of bilious fluid. Plan: Resume care by clinical team. PROCEDURE SUMMARY: - Limited abdominal ultrasound - Ultrasound-guided paracentesis - Additional procedure(s): None PROCEDURE DETAILS: Pre-procedure Consent: Informed consent for the procedure including risks, benefits and alternatives was obtained and time-out was performed prior to the procedure. Preparation: The site was prepared and draped using maximal sterile barrier technique including cutaneous antisepsis. Anesthesia/sedation Level of anesthesia/sedation: None Initial abdominal ultrasound Initial abdominal ultrasound was performed. Findings: Moderate ascites. A safe window for paracentesis was identified. Paracentesis Local anesthesia was administered. The peritoneal cavity was accessed and fluid return confirmed position. Ascites was drained. The catheter was then removed, and a sterile bandage was applied. Paracentesis access technique: Real-time ultrasound guidance. Catheter placed: 20 gauge needle Post-drainage ultrasound: Not performed Additional Details Additional description of procedure: None Equipment details: None Specimens removed: Abdominal fluid Estimated blood loss (mL): Minimal (<10cc) Standardized report: [id number] Attestation Signer name: Srinivasan Myers MD I attest that I was present for the entire procedure. I reviewed the stored images and agree with the report as written. Signed by: Srinivasan Myers MD on 11/06/2019 3:07 PM
[2019-11-06] MEDS ORDERED: SODIUM BICARBONATE 650 MG TAB PO SCH (17:00)
--- NOTE | 2019-11-06 17:09 | NUR ---
Nutrition Screen Note RD Recommendation for Physician: -Recommend to continue renal diet Plan of Care: RD following, monitoring for tolerance and adequacy Nutrition reason for involvement: Length of stay Primary Diagnose(s): hypovolemic shock, liver cirrhosis PMH: Cirrhosis, End-stage renal disease, Hypertension, Esophageal varices, Hypertension, Anemia, Pancreatitis. Ht: 71 in Wt:215.06 lb BMI: 30.0 kg/m2 IBW:[address] Assessment: (11/06/19) Chart reviewed. Labs and meds reviewed. Pt is a 38 year old male admitted with hypovolemic shock and liver cirrhosis. It is recorded that pt has been consuming 75-100% of meals during admission. Pt has various weights in chart per weight history. Pt weighed 196 lbs in August 2019 and 226 lbs in September 2019. Pt currently has a weight of 215 lbs. Suspect fluid-related weight changes due to ESRD/dialysis. Will continue to monitor. Current Diet: renal Malnutrition Evaluation (11/06/19) The patient does not meet criteria for a specified degree of malnutrition at this time. Will re-evaluate at follow-up as appropriate. Diet Education Needs Assessment: RD is available for diet education as needed Nutrition Care Level: low Signed: Tamar Still, RD, LD
[2019-11-06 17:48] LABS: BODY FLUID TYPE PERITONEAL
[2019-11-06 17:49] LABS: BODY FLUID APPEARANCE CLOUDY; BODY FLUID COLOR STRAW
--- NOTE | 2019-11-06 18:17 | NUR ---
D/C Summary Principal Dx: Severe anemia- blood transfusions Hyperbilirubinemia- due to cirrhosis GIB- IV PPI; gi eval Hypovolemic Shock- give blood; empiric abx coverage. N/V- antiemetics Clostridium difficle- flagyl/vanco Ileus Portal gastropathy Esophageal varices Ascites s/p paracentesis just over 1 liter removed SEcondary dx: THrombocytopenia- due to cirrhosis and splenomegaly Splenomegaly Alcoholic cirrhosis- f/[place] ESRD on HD- consult nephrolog Portal HTN- propranolol when BP better Prop; scd; ppi dispo: IV ppi; GI consult; cct>35mins 9-6-20 got 2 units, give 2 more units PRBC; current on RA. HD pending; C.diff positive- start flagyl/po vanco; cct>35mins 9-7 hemodynamically stable; give more blood; 9-8 Endoscopy pending; cont support. 9-9 ileus; f/u endoscopy; 9-10 f/u endoscopy= Esophageal varices and Portal gastropathy. s/p paracentesis; transfuse plts if <20K d/c home stable at this point f/u on Sun next week TELEmedicine; F/U with juvenile correctional officer/transplant team in [facility] next week. D/C >35mins JENNYFER PARKER MD, PHD.
[2019-11-06] MEDS ORDERED: CHOLESTYRAMINE L4 GM PO (18:18)
[2019-11-06] MEDS ORDERED: XIFAXAN550 MG PO (18:18)
[2019-11-06] MEDS ORDERED: LACTULOSE20 GM/30 M PO (18:18)
[2019-11-06] MEDS ORDERED: VANCOCIN HCL250 MG PO (18:18)
[2019-11-06] MEDS ORDERED: SODIUM BICARBO650 MG PO (18:18)
[2019-11-06 18:24] LABS: LYMPHOCYTES,BODY FLUID 58 %; MONO/MACROPHG,BODY FLUID 32 %; NEUTROPHILS,BODY FLUID 10 %
[2019-11-06 18:45] LABS: RBC,BODY FLUID 1469 cells/uL; WBC,BODY FLUID 17 cells/uL
--- NOTE | 2019-11-06 19:05 | NUR ---
Patient having abdominal tightness and pain in afternoon. Dr. Laine Sam notified and gave orders for abdominal US and paracentesis if indicated. 1.2 L removed from paracentessis. site CDI, no signs of bleeding noted. Patient wanting to go home at this time. Per Dr. Laine Sam pt is ok to be discharged. Dr. Kay notified and gave orders for discharge. MD to call in prescriptions to [facility] on [address]. Patient educated on discharge instructions including medications, education about c diff and liver chirosis, and follow up appointments. PIV x 2 removed. Patient waiting to be picked up by friend at this time. No s/s of distress seen.
--- NOTE | 2019-11-10 15:00 | Diagnostic Imaging Report ---
PROCEDURE: Ultrasound-guided diagnostic paracentesis Procedural Personnel Attending physician(s): Yvette Harris MD Pre-procedure diagnosis: Ascites Post-procedure diagnosis: Ascites Indication: Abdominal pain, ascites Additional clinical history: None Complications: No immediate complications. IMPRESSION: Ultrasound-guided paracentesis with drainage of 60 cc of clear yellow fluid. Plan: Resume care by clinical team. PROCEDURE SUMMARY: - Limited abdominal ultrasound - Ultrasound-guided paracentesis - Additional procedure(s): None PROCEDURE DETAILS: Pre-procedure Consent: Informed consent for the procedure including risks, benefits and alternatives was obtained and time-out was performed prior to the procedure. Preparation: The site was prepared and draped using maximal sterile barrier technique including cutaneous antisepsis. Anesthesia/sedation Level of anesthesia/sedation: None Initial abdominal ultrasound Initial abdominal ultrasound was performed. Findings: Moderate ascites. A safe window for paracentesis was identified. Paracentesis Local anesthesia was administered. Given thrombocytopenia, needle aspiration rather than catheter aspiration chosen. The peritoneal cavity was accessed with a 25 gauge needle and fluid return confirmed position. Ascites was drained. The needle was then removed, and a sterile bandage was applied. Paracentesis access technique: Real-time ultrasound guidance. Post-drainage ultrasound: Not performed Additional Details Additional description of procedure: None Equipment details: None Specimens removed: Abdominal fluid Estimated blood loss (mL): None. Standardized report: [email or web address] Attestation Signer name: Dr. Yvette Harris MD I attest that I was present for the entire procedure. I reviewed the stored images and agree with the report as written. Signed by: Dr. Yvette Harris MD on 11/10/2019 2:56 PM
== END 2019-11-06 19:30 | disposition home or self-care (01) | DRG 432 ==
LOC: ER 21:01 → ERHOLD 22:00 → ICU 23:26 → IMCU 11-05 23:11
PROVIDERS: ADMIT Internal Medicine; ATTEND Internal Medicine
PROC: 30243N1 Transfusion of Nonautologous Red Blood Cells into Central Vein, Percutaneous Approach (ICD-10-PCS; 2019-11-01)
PROC: 5A1D70Z Performance of Urinary Filtration, Intermittent, Less than 6 Hours Per Day (ICD-10-PCS; principal; 2019-11-02)
PROC: 30243L1 Transfusion of Nonautologous Fresh Plasma into Central Vein, Percutaneous Approach (ICD-10-PCS; 2019-11-02)
PROC: 0DJ08ZZ Inspection of Upper Intestinal Tract, Via Natural or Artificial Opening Endoscopic (ICD-10-PCS; 2019-11-05)
DX: K70.30 Alcoholic cirrhosis of liver without ascites (principal); R57.1 Hypovolemic shock; N18.6 End stage renal disease; I85.11 Secondary esophageal varices with bleeding; A04.72 Enterocolitis due to Clostridium difficile, not specified as recurrent; D62 Acute posthemorrhagic anemia; I13.11 Hypertensive heart and chronic kidney disease without heart failure, with stage 5 chronic kidney disease, or end stage renal disease; K76.6 Portal hypertension; D68.9 Coagulation defect, unspecified; D69.6 Thrombocytopenia, unspecified; Z11.59 Encounter for screening for other viral diseases
CPT/HCPCS: 36415; 43239; 49083; 71045; 74018; 74176; 76705; 80048; 80053; 80320; 82140; 82248; 82550; 82553; 82607; 82728; 82746; 83010; 83540; 83605; 83630; 83690; 83735; 83993; 84100; 84155; 84466; 84484; 85025; 85045; 85610; 85730; 86704; 86705; 86706; 86850; 86900; 86920; 87040; 87045; 87070; 87177; 87205; 87493; 88112; 88305; 89051; 90962; 93930; 99284; C1729; J0696; J1644; J2001; J2353; J2543; J3010; J3430; J7030; J7040; J7050; P9016; P9017; U0002

== ENCOUNTER 2019-11-25 19:34 | Inpatient (IN) | payer BC, OTHER ==
[~2019-11-25] VITALS: Ht 182.9 cm; Wt 90.0 kg
[~2019-11-25 19:34] MED LIST changes: +CHOLESTYRAMINE L4 GM PO; +FUROSEMIDE80 MG; +HYDROXYZINE HCL25 MG; +LACTULOSE20 GM/30 M PO; +ONDANSETRON HCL4 MG; +SODIUM BICARBO650 MG PO; +ULTRAM 50MG50 MG; +VANCOCIN HCL250 MG PO; +XIFAXAN550 MG PO
--- OUTSIDE RECORDS SUMMARY | 2019-11-25 20:51 | XMS REPORT | Clinical Summary ---
Author Author [facility] Organization [facility] Address Unknown Phone Unavailable Care Team Providers Care Frame Catcher Name Role Phone PCP Unavailable Allergies No [...] (>/= 19 yrs) Results Not on fileafter 11/24/2018 Insurance Type Payer Benefit Subscriber ID Effective Phone Address Plan / Dates Group BC/BS BC/BS PPO xxxxxxxxxxxx 2017-P [phone] [id number] [place] [address] Advance Directives Date Inactivated Comments Code Status Date Activated 01/28/2018 3:20 PM Full Code 01/24/2018 10:54 PM
--- OUTSIDE RECORDS SUMMARY | 2019-11-25 20:54 | XMS REPORT | Clinical Summary ---
Author Author PATY [facility]St[facility] MobuleNorth Canyon Medical CenterAffomix CorporationEastern State Hospital Address Unknown Phone Unavailable Care Team Providers Care Mold Polisher Name Role Phone Keith Hammond Unavailable Pcp, No PCP Unavailable Allergies Comments Active Allergy Reactions Severity Noted Date Prednisone 05/04/2019 Ceftriaxone Rash Medium 01/06/2019 Medications End Date Status Medication Sig Dispensed Refills Start Date Active lactulose (CHRONULAC) 20 Take 45 mLs [...] 0 07/10 tablet by mouth 9 daily. 12/26/2018 Discontinued lactulose (CHRONULAC) 20 Take 45 mLs 0 11/07 gram/30 mL solution (30 g total) 9 by mouth 3 (three) times daily. 12/07/2018 traZODone (DESYREL) 50 MG Take 1 tablet 0 10/27 tablet (50 mg total) 9 by mouth every night as needed for up to 30 days. 11/07/2019 folic acid (FOLVITE) 1 MG Take 1 tablet 0 10/27 tablet (1 mg total) 9 by mouth daily. 12/26/2018 Discontinued ipratropium (ATROVENT) Take 2.5 mLs [...] injection (100 mg 9 total) intravenously daily. 12/26/2018 Discontinued traZODone (DESYREL) 50 MG Take [...] Team Description Date Type Specialty Anastacio Killian 11/17/2019 Documentation Transplant Hepatolo gy Anastacio Killian 11/13/2019 Documentation Transplant Hepatolo gy Malina Mcmillan, KATHERINE Follow-up 11/07/2019 Telephone Transplant Hepatolo gy Malina Mcmillan, RN Follow-up 11/07/2019 Telephone Transplant Hepatolo gy Michael Blount LCSW Social Work 11/07/2019 Telephone Transplant Hepatolo gy Malina Mcmillan, KATHERINE Follow-up 11/07/2019 Telephone Transplant Hepatolo gy Malina Mcmillan, RN Follow-up 11/06/2019 Telephone Transplant Hepatolo gy Michael Blount LCSW Social Work 10/17/2019 Telephone Transplant Hepatolo gy Anastacio Killian Appointment 07/28/2019 Telephone Transplant Hepatolo [...] gy Ariana Schwartz 06/02/2019 Documentation Transplant Bib Dumont, RN Alcoholic cirrhosis of liver with ascite s (HCC) (Primary Dx); ESRD on hemodialysis (HCC) 06/02/2019 Orders Only Transplant Hepatolo gy Lauri Harris LCSW 05/28/2019 Social Work Transplant Hepatolo gy Emily Vazquez, KATHERINE 05/27/2019 Documentation Transplant Nay Monroe RN 05/27/2019 Abstract Transplant Hepatolo gy Emily Vazquez, [...] Osei, MA 05/23/2019 Abstract Transplant Hepatolo gy OseiShayania, MA 05/23/2019 Abstract Transplant Hepatolo gy OseiAbby, MA 05/23/2019 Abstract Transplant Hepatolo gy Malina Mcmillan [...] Only 05/15/2019 Telephone Transplant Hepatolo gy Katie Garsia RN 05/14/2019 Documentation Transplant Hepatolo gy Katie Garsia RN 05/14/2019 Documentation Transplant Hepatolo gy Bib Dumont RN Alcoholic hepatitis with ascites (Primar y Dx); Fatty liver; ESRD on hemodialysis (HCC) 05/14/2019 Orders Only Transplant Hepatolo gy Delores Schaefer RN 05/14/2019 Documentation Transplant Devyn Lantigua MD Fuller, Arian [place], NP Screening for cancer (Primary Dx); Alcoholic cirrhosis of liver with ascites (HCC); Hepatic encephalopathy (HCC); Tubular adenoma 05/13/2019 Office Visit Hepatology Elizabeth Gordillo 05/13/2019 Documentation Transplant Abby Osei MA Appointment (SCREENED ) 05/13/2019 Telephone Hepatology Lauri Harris LCSW 05/13/2019 Social Work Transplant Bib Roger, RN 05/13/2019 Documentation Transplant Hepatolo gy Carley [...] MD UPPER ENDOSCOPY 05/06/2019 Surgery Gastroenterology Radha Mera RN Appointment 05/06/2019 Telephone Transplant 05/05/2019 Travel Marissa Mixon Appointment 05/05/2019 Telephone Transplant HepatMarissa Saavedra Appointment 05/05/2019 Telephone Transplant Hepatolo gy 05/05/2019 Orders Only General Internal Me Juanpablo Holland MD Westfall, Clarke Newell MD Sepsis due to other etiology (HCC) (Prim una Dx); Anemia due to other cause, not classified; Chronic kidney disease with end stage renal failure on dialysis (HCC); Acute hyponatremia; Pre-transplant evaluation for liver transplant; Hypotension due to hypovolemia; ESRD (end stage renal disease) on dialysis (HCC); Symptomatic anemia 05/04/2019 Hospital Cardiology - Encounter 05/10/2019 05/04/2019 Travel Marissa Mixon Labs Only (LVM asking pt tor return my c all, labs are due.) 05/02/2019 Telephone Transplant HepatBib Anderson, RN Alcoholic hepatitis with ascites (Primar y Dx); Fatty liver 04/08/2019 Orders Only Transplant Bib Roger, KATHERINE 04/08/2019 Documentation Transplant Hepatolo gy Devyn Lantigua MD Alcoholic hepatitis with ascites; ESRD on hemodialysis (HCC) 04/07/2019 Orders Only Transplant Bib Roger RN 04/07/2019 Documentation Transplant Hepatjuanito Boss Dorothy 04/07/2019 Documentation Transplant Bib Dumont RN 04/04/2019 [...] Gena Gordon MD Mindikoglu, Ayse Leyla, MD MPH Alcoholic hepatitis with ascites (Primar y Dx); Portal hypertension (HCC); Fatty liver; Portal hypertensive gastropathy (HCC); Immunity status testing; Immunization counseling; Tubular adenoma of colon; Screening for malignant neoplasm; Acute alcoholic hepatitis; Rash; ESRD on hemodialysis (HCC); Abnormal findings on diagnostic imaging of abdomen 02/04/2019 Follow-Up Transplant Carissa thayer Jessie Emery E 02/04/2019 Documentation Transplant Gena Gordon MD Fatty liver; ESRD (end stage renal disease) (HCC); Acute blood loss anemia 02/03/2019 Orders Only Transplant Gena Gordon MD ESRD (end stage renal disease) (HCC); Pre-transplant evaluation for end stage renal disease 02/03/2019 Hospital Radiology Encounter System, Provider Not In 02/03/2019 Outside Orders Martha Oquendo RN Fatty liver (Primary Dx); ESRD (end stage renal disease) (HCC); Acute blood loss anemia 01/24/2019 Orders Only Transplant Servando Handley RN ESRD (end stage renal disease) (HCC) (Pr imary Dx) 01/22/2019 Orders Only Transplant Rupert Jessie Sanchez Appointment (LVM. Called to confirm [facility] f/u appt wpt. Itinerary mailed.) 01/20/2019 Telephone Transplant Alejandrina Quiroga MD Hasan, Syed Ali Reza, MD Khaderi, Perri Butterfield MD Anemia due to chronic kidney disease, on chronic dialysis (HCC) (Primary Dx); Alcoholic cirrhosis of liver without ascites (HCC); ESRD (end stage renal disease) (HCC); Gastrointestinal hemorrhage with melena 01/17/2019 [facility] Cardiology - Encounter 01/18/2019 01/17/2019 Travel [...] stage renal disease 01/16/2019 Orders Only Transplant Devyn Velasco MD Dunn, Parxann Marie, PA Pruritus (Primary Dx); Alcoholic [...] f/ u appt w/pt.) 01/06/2019 Telephone Transplant Carissa thayer 01/04/2019 Travel Pratik Valdez MD Daniel, Jamuna V., MD Acute blood loss anemia (Primary Dx); ESRD (end stage renal disease) on dialysis (HCC); Alcoholic cirrhosis of liver without ascites (HCC); Thrombocytopenia (HCC); Chronic hypotension; Fatty liver; Gastrointestinal hemorrhage with melena; Portal hypertension (HCC); Alcohol abuse; Anemia, unspecified type; Hemorrhoids, unspecified hemorrhoid type 01/03/2019 [facility] Cardiology - Encounter 01/06/2019 01/03/2019 Travel Jessie Emery Appointment (LVM. Calling to inform pt we have cancelled his 01/07 clinic appt and rescheduled him to 01/16 @ 2 pm. Itinerary mailed to pt.) 01/02[facility]ineda Appointment 01/01/2019 Telephone Transplant Servando Romano RN ESRD (end stage renal disease) (HCC) (Pr imary Dx); Pre-transplant evaluation for end stage renal disease 12/27/2018 Orders Only Transplant Hemalatha Alfredo 12/26/2018 Abstract Transplant JuliaVíctor MD Siddique, Muhammad Asim, MD Varughese, Roy, [...] 33.9 in adult; Portal hypertension (HCC) 12/21/2018 Hospital General Internal Ia dicine - Encounter 12/26/2018 12/21/2018 Orders Only General Internal Me dicine 12/21/2018 Travel after 11/24/2018 Family History Medical History Relation Name Comments [...] unspecified vessel or lesion type, unspecified whether [place] or transplanted heart (HCC) BODY FLUID CULTURE [...] ms QTC Calculatio n(Bazett) 490 ms R Clifton 151 degrees T Clifton -88 degrees Undetermi lraa rhythm Left posterior fascicular block ST & [...] ms QTC Calculatio n(Bazett) 262 ms R Clifton 153 degrees T Clifton -84 degrees Sinus tachycardi a with 1st [...] ms QTC Calculatio n(Bazett) 511 ms P Clifton 254 degrees R Clifton 46 degrees T Clifton -73 degrees Atrial flutter with variable A-V [...] ms QTC Calculatio n(Bazett) 0 ms R Clifton 0 degrees T Clifton 0 degrees No QRS complexes found, no [...] ms QTC Calculatio n(Bazett) 557 ms P Clifton 45 degrees R Clifton 33 degrees T Clifton 29 degrees Normal sinus rhythm Nonspecifi c [...] Alcohol ic hepatitis with DIFFERENTIAL 9:34 AM ORDNANCE EQUIPMENT WORKER ascites ESRD on hemodialysis (HCC) PROTHROMBIN TIME/INR Routine 04/07/2019 Alcoholic hepatitis with 9:34 AM ORDNANCE EQUIPMENT WORKER ascites ESRD on hemodialysis (HCC) HEPATIC FUNCTION PANEL Routine 04/07/2019 Alcohol ic hepatitis with 9:34 AM [employer]DNANCE EQUIPMENT WORKER ascites ESRD on hemodialysis (HCC) CBC W/PLT COUNT & AUTO Routine 04/07/2019 Alcohol ic hepatitis with DIFFERENTIAL 9:34 AM [employer]DNANCE EQUIPMENT WORKER ascites ESRD on hemodialysis (HCC) BASIC METABOLIC PANEL (7) Routine 04/07/2019 Alco holic hepatitis with 9:34 AM [employer]DNANCE EQUIPMENT WORKER ascites ESRD on hemodialysis (HCC) CBC W/PLT COUNT & AUTO Routine 03/14/2019 Alcohol ic cirrhosis of DIFFERENTIAL 10:32 AM ORDNANCE EQUIPMENT WORKER liver without ascit es (HCC) PROTHROMBIN TIME/INR Routine 03/14/2019 Alcoholic cirrhosis of 10:32 AM ORDNANCE EQUIPMENT WORKER liver without ascites (HCC) CBC W/PLT COUNT & AUTO Routine 03/14/2019 Alcohol ic cirrhosis of DIFFERENTIAL 10:32 AM ORDNANCE EQUIPMENT WORKER liver without ascit es (HCC) HEPATIC FUNCTION PANEL Routine 03/14/2019 Alcohol ic cirrhosis of 10:32 AM ORDNANCE EQUIPMENT WORKER liver without ascites (HCC) BASIC METABOLIC PANEL (7) Routine 03/14/2019 Alco holic cirrhosis of 10:32 AM ORDNANCE EQUIPMENT WORKER liver without ascites (HCC) CBC W/PLT COUNT & AUTO Routine 03/04/2019 Iron de ficiency anemia, DIFFERENTIAL 10:00 AM [employer]DNANCE EQUIPMENT WORKER unspecified iron deficiency anemia type COMPREHENSIVE METABOLIC Routine 03/04/2019 Alcoho lic cirrhosis of PANEL 10:00 AM [employer]DNANCE EQUIPMENT WORKER liver with ascites (HCC) CBC W/PLT COUNT & AUTO Routine 03/04/2019 Iron de ficiency anemia, DIFFERENTIAL 10:00 AM [employer]CE EQUIPMENT WORKER unspecified iron deficiency anemia type BILIRUBIN, DIRECT Routine 03/04/2019 Alcoholic ci rrhosis of 10:00 AM ORDNANCE EQUIPMENT WORKER liver with ascites (HCC) PROTHROMBIN TIME/INR Routine 03/04/2019 Alcoholic cirrhosis of 9:55 AM [employer]DNANCE EQUIPMENT WORKER liver with ascites (HCC) COMPREHENSIVE METABOLIC Routine 02/03/2019 Fatty liver PANEL 10:13 AM ORDNANCE EQUIPMENT WORKER BILIRUBIN, DIRECT Routine 02/03/2019 Fatty liver 10:13 AM ORDNANCE EQUIPMENT WORKER CBC W/PLT COUNT & AUTO Routine 02/03/2019 ESRD (e nd stage renal DIFFERENTIAL 10:12 AM [employer] EQUIPMENT WORKER disease) (HCC) Acute blood loss anemia PROTHROMBIN TIME/INR Routine 02/03/2019 Fatty maru er 10:12 AM [employer]DNANCE EQUIPMENT WORKER CBC W/PLT COUNT & AUTO Routine 02/03/2019 ESRD (e nd stage renal DIFFERENTIAL 10:12 AM ORDNANCE EQUIPMENT WORKER disease) (HCC) Acute blood loss anemia US PELVIS WITH DOPPLER Routine 02/03/2019 ESRD (e nd stage renal 9:35 AM [employer]DNANCE EQUIPMENT WORKER disease) (HCC) Pre-transplant evaluation for end stage renal disease RHYTHM STRIP - SCAN 01/21/2019 11:42 AM [employer]DNANCE EQUIPMENT WORKER RHYTHM STRIP - SCAN 01/20/2019 4:02 PM ORDNANCE EQUIPMENT WORKER RHYTHM STRIP - SCAN 01/20/2019 4:02 PM ORDNANCE EQUIPMENT WORKER TRANSFUSION SERVICE 01/19/2019 REPORT - SCAN 6:00 PM ORDNANCE EQUIPMENT WORKER PREPARE LEUKO-REDUCED RBC Routine 01/18/2019 11:55 PM [employer]DNANCE EQUIPMENT WORKER TRANSFUSION SERVICE 01/18/2019 REPORT - SCAN 6:03 PM ORDNANCE EQUIPMENT WORKER VITAMIN B12 AND FOLATE Routine 01/18/2019 5:47 PM ORDNANCE EQUIPMENT WORKER HAPTOGLOBIN Routine 01/18/2019 5:47 PM ORDNANCE EQUIPMENT WORKER LACTATE DEHYDROGENASE Routine 01/18/2019 (LDH) 5:47 PM ORDNANCE EQUIPMENT WORKER IRON, TIBC, % SAT. Routine 01/18/2019 (WITHOUT FERRITIN) 5:47 PM ORDNANCE EQUIPMENT WORKER FERRITIN Routine 01/18/2019 5:47 PM ORDNANCE EQUIPMENT WORKER ULTRAFILTRATION HD CRRT Routine 01/18/2019 3:13 PM ORDNANCE EQUIPMENT WORKER HEMOGLOBIN AND HEMATOCRIT STAT 01/18/2019 11:17 AM ORDNANCE EQUIPMENT WORKER CBC (HEMOGRAM ONLY) Routine 01/18/2019 2:51 AM ORDNANCE EQUIPMENT WORKER TRANSFUSE LEUKO-REDUCED Routine 01/17/2019 RED BLOOD CELLS 11:33 PM ORDNANCE EQUIPMENT WORKER TRANSFUSE LEUKO-REDUCED Routine 01/17/2019 RED BLOOD CELLS 10:39 PM ORDNANCE EQUIPMENT WORKER HEMODIALYSIS INPATIENT Routine 01/17/2019 9:29 PM ORDNANCE EQUIPMENT WORKER TYPE AND SCREEN, Routine 01/17/2019 AUTOMATED 3:35 PM ORDNANCE EQUIPMENT WORKER CBC W/PLT COUNT & AUTO Routine 01/16/2019 Alcohol ic cirrhosis of DIFFERENTIAL 3:56 PM ORDNANCE EQUIPMENT WORKER liver without ascit es (HCC) AB SPECIFICITY CLASS I Routine 01/16/2019 ESRD (e nd stage renal 3:56 PM ORDNANCE EQUIPMENT WORKER disease) (HCC) Pre-transplant evaluation for end stage renal disease ALPHA FETOPROTEIN (AFP), Routine 01/16/2019 Alcoh olic cirrhosis of TUMOR MARKER 3:56 PM ORDNANCE EQUIPMENT WORKER liver without ascit es (HCC) PROTHROMBIN TIME/INR Routine 01/16/2019 Alcoholic cirrhosis of 3:56 PM ORDNANCE EQUIPMENT WORKER liver without ascites (HCC) CBC W/PLT COUNT & AUTO Routine 01/16/2019 Alcohol ic cirrhosis of DIFFERENTIAL 3:56 PM [employer]DNANCE EQUIPMENT WORKER liver without ascit es (HCC) HEPATIC FUNCTION PANEL Routine 01/16/2019 Alcohol ic cirrhosis of 3:56 PM ORDNANCE EQUIPMENT WORKER liver without ascites (HCC) BASIC METABOLIC PANEL (7) Routine 01/16/2019 Alco holic cirrhosis of 3:56 PM ORDNANCE EQUIPMENT WORKER liver without ascites (HCC) FLOW PRA CLASS II WITH Routine 01/16/2019 ESRD (e nd stage renal REFLEX TO ANTIBODY 3:56 PM ORDNANCE EQUIPMENT WORKER disease) (HCC) SPECIFICITY Pre-transplant evaluation for end stage renal disease FLOW PRA CLASS I WITH Routine 01/16/2019 ESRD (en d stage renal REFLEX TO ANTIBODY 3:56 PM ORDNANCE EQUIPMENT WORKER disease) (HCC) SPECIFICITY Pre-transplant evaluation for end stage renal disease HLA TYPING CII Routine 01/16/2019 ESRD (end stage renal 3:56 PM [employer]NCE EQUIPMENT WORKER disease) (HCC) Pre-transplant evaluation for end stage renal disease HLA TYPING CI Routine 01/16/2019 ESRD (end stage renal 3:56 PM [employer]CE EQUIPMENT WORKER disease) (HCC) Pre-transplant evaluation for end stage renal disease RHYTHM STRIP - SCAN 01/08/2019 9:10 AM ORDNANCE EQUIPMENT WORKER TRANSFUSION SERVICE 01/06/2019 REPORT - SCAN 5:50 PM ORDNANCE EQUIPMENT WORKER HEPATIC FUNCTION PANEL Routine 01/06/2019 6:01 AM ORDNANCE EQUIPMENT WORKER PROTHROMBIN TIME/INR Routine 01/06/2019 6:01 AM ORDNANCE EQUIPMENT WORKER MAGNESIUM Routine 01/06/2019 6:01 AM ORDNANCE EQUIPMENT WORKER BASIC METABOLIC PANEL (7) Routine 01/06/2019 6:01 AM ORDNANCE EQUIPMENT WORKER CBC (HEMOGRAM ONLY) Routine 01/06/2019 6:01 AM ORDNANCE EQUIPMENT WORKER MISCELLANEOUS LAB ORDER Routine 01/06/2019 6:01 AM ORDNANCE EQUIPMENT WORKER PREPARE LEUKO-REDUCED RBC Routine 01/05/2019 11:54 PM ORDNANCE EQUIPMENT WORKER TRANSFUSION SERVICE 01/05/2019 REPORT - SCAN 5:50 PM ORDNANCE EQUIPMENT WORKER PROTHROMBIN TIME/INR Routine 01/05/2019 4:30 AM ORDNANCE EQUIPMENT WORKER HEPATIC FUNCTION PANEL Routine 01/05/2019 4:30 AM ORDNANCE EQUIPMENT WORKER MAGNESIUM Routine 01/05/2019 4:30 AM ORDNANCE EQUIPMENT WORKER BASIC METABOLIC PANEL (7) Routine 01/05/2019 4:30 AM ORDNANCE EQUIPMENT WORKER CBC (HEMOGRAM ONLY) Routine 01/05/2019 4:30 AM ORDNANCE EQUIPMENT WORKER PREPARE LEUKO-REDUCED RBC STAT 01/04/2019 11:54 PM ORDNANCE EQUIPMENT WORKER TRANSFUSION SERVICE 01/04/2019 REPORT - SCAN 5:53 PM ORDNANCE EQUIPMENT WORKER DRUG SCREEN, URINE, Routine 01/04/2019 TRANSPLANT 5:39 PM ORDNANCE EQUIPMENT WORKER DRUG SCREEN, URINE, Routine 01/04/2019 COMPREHENSIVE 5:39 PM ORDNANCE EQUIPMENT WORKER TRANSFUSE LEUKO-REDUCED Routine 01/04/2019 RED BLOOD CELLS 2:09 PM ORDNANCE EQUIPMENT WORKER ETHANOL Routine 01/04/2019 9:42 AM ORDNANCE EQUIPMENT WORKER CBC W/PLT COUNT & AUTO Routine 01/04/2019 DIFFERENTIAL 4:07 AM ORDNANCE EQUIPMENT WORKER CBC W/PLT COUNT & AUTO Routine 01/04/2019 DIFFERENTIAL 4:07 AM ORDNANCE EQUIPMENT WORKER HEPATIC FUNCTION PANEL Routine 01/04/2019 4:07 AM ORDNANCE EQUIPMENT WORKER BASIC METABOLIC PANEL (7) Routine 01/04/2019 4:07 AM ORDNANCE EQUIPMENT WORKER TRANSFUSE LEUKO-REDUCED STAT 01/04/2019 RED BLOOD CELLS 1:55 AM ORDNANCE EQUIPMENT WORKER TYPE AND SCREEN, STAT 01/03/2019 AUTOMATED 9:56 PM ORDNANCE EQUIPMENT WORKER CBC W/PLT COUNT & AUTO STAT 01/03/2019 DIFFERENTIAL 9:54 PM ORDNANCE EQUIPMENT WORKER PT/APTT STAT 01/03/2019 9:54 PM ORDNANCE EQUIPMENT WORKER HEPATIC FUNCTION PANEL STAT 01/03/2019 9:54 PM ORDNANCE EQUIPMENT WORKER BASIC METABOLIC PANEL (7) STAT 01/03/2019 9:54 PM ORDNANCE EQUIPMENT WORKER CBC W/PLT COUNT & AUTO STAT 01/03/2019 DIFFERENTIAL 9:54 PM ORDNANCE EQUIPMENT WORKER REPORT OF PROCEDURE - 12/31/2018 ENDOSCOPY SCAN 12:52 PM ORDNANCE EQUIPMENT WORKER TRANSFUSION SERVICE 12/27/2018 REPORT - SCAN 6:02 [...] ms QTC Calculatio n(Bazett) 541 ms P Clifton 40 degrees R Clifton 30 degrees T Clifton 14 degrees Normal sinus rhythm Prolonged QT Abnormal ECG When compared with ECG of 9 03:56, Nonspecifi c T wave abnormalit y no longer evident in Lateral leads ECG 12-LEAD STAT 12/21/2018 1:18 AM CDT CRITICAL CARE Routine 12/21/2018 1:10 AM CDT after 11/24/2018 Results * MR abdomen with/without IV contrast (05/23/2019 12:08 PM CDT) Specimen Narrative Performed At FINAL REPORT Let's Talk MRI of the abdomen with and without [...] Report Verified Date/Time: 0 12:54:18 Reading Location: [address] Refund Exchange Co nsult Reading Room Procedure Note Interface, [...] Report Verified Date/Time: 05/23/2019 12:54:18 Reading Location: [address] Ortho Consult Reading Room Performing Organization Address City/State/Zipcode Ph one Number GE RIS * CBC with platelet count + automated diff (05/23/2019 9:03 AM CDT) Only the most recent of 22 results within the time period is included. WBC 7.3 3.5 - 10.5 K/L [facility] RBC 2.33 (L) 4.63 - 6.08 M/L [facility] Hemoglobin 7.3 (L) 13.7 - 17.5 GM/DL [facility] Hematocrit 22.0 (L) 40.1 - 51.0 % [facility] MCV 94.4 (H) 79.0 - 92.2 fL [facility] MCH 31.3 25.7 - 32.2 pg [facility] MCHC 33.2 32.3 - 36.5 GM/DL [facility] RDW 18.6 (H) 11.6 - 14.4 % [facility] Platelets 94 (L) 150 - 450 K/CU MM [facility] MPV 8.4 (L) 9.4 - 12.4 fL [facility] nRBC 0 0 - 0 /100 WBC [facility] % Neutros 69 % [facility] % Lymphs 18 % [facility] % Monos 9 % [facility] % Eos 3 % [facility] % Baso 1 % [facility] # Neutros 5.03 1.78 - 5.38 K/L [facility] # Lymphs 1.31 (L) 1.32 - 3.57 K/L [facility] # Monos 0.62 0.30 - 0.82 K/L [facility] # Eos 0.23 0.04 - 0.54 K/L [facility] # Baso 0.06 0.01 - 0.08 K/L [facility] Immature 0 0 - 1 % [facility] Granulocytes-Relative [facility] Specimen Blood Performing Organization Address City/[facility] Ph one Number [address] [facility] * Prothrombin time/INR (05/23/2019 9:03 AM CDT) Only the most recent of 10 results within the time period is included. Protime 16.6 (H) 11.9 - 14.2 seconds [facility] INR 1.4 <=5.9 [facility] Specimen Blood Narrative Performed At Effective 07/24/2018: PT Reference Range Change [facility] New: 11.9-14.2Previous: 11.7-14.7 [facility] MEDICAL CE NTER RECOMMENDED COUMADIN/WARFARIN INR THERA PY RANGES STANDARD DOSE: 2.0-3.0Includes: PRO PHYLAXIS for venous thrombosis, systemic embolization; TREATMENT for venous thro mbosis and/or pulmonary embolus. HIGH RISK: Target INR is 2.5-3.5 for pa tients wiht mechanical heart valves. Performing Organization Address City/[facility] Ph one Number [address] [facility] * Hepatic function panel (05/23/2019 9:03 AM CDT) Only the most recent of 11 results within the time period is included. Protein, Total 6.5 6.0 - 8.3 gm/dL [facility] Albumin 3.4 (L) 3.5 - 5.0 g/dL [facility] Total Bilirubin 5.4 (H) 0.2 - 1.2 mg/dL [facility] Bilirubin, Direct 2.6 (H) 0.1 - 0.5 mg/dL [facility] Alkaline Phosphatase 200 (H) 40 - 150 U/L [facility] AST 46 (H) 5 - 34 U/L [facility] ALT 12 6 - 55 U/L [facility] Specimen Blood Narrative Performed At Business Performance Advisor ID - [facility] Performing Organization Address [facility] Ph one Number [place] [id number] [facility] * Basic Metabolic Panel (05/23/2019 9:03 AM CDT) Only the most recent of 16 results within the time period is included. Sodium 139 136 - 145 meq/L [facility] Potassium 3.3 (L) 3.5 - 5.1 meq/L [facility] Chloride 100 98 - 107 meq/L [facility] CO2 30 (H) 22 - 29 meq/L [facility] BUN 25 (H) 7 - 21 mg/dL [facility] Creatinine 2.87 (H) 0.57 - 1.25 mg/dL [facility] Glucose 112 (H) 70 - 105 mg/dL [facility] Calcium 8.5 8.4 - 10.2 mg/dL [facility] EGFR 25Comment: ESTIMATED GFR IS mL/min/1.73 sq m [facility] NOT ACCURATE CREATININE [facility] CLEARANCE IN PREDICTING GLOMERULAR FILTRATION RATE. ESTIMATED GFR IS NOT APPLICABLE FOR DIALYSIS PATIENTS. Specimen Blood Narrative Performed At Business Performance Advisor ID - [facility] Specimen moderately [facility] Performing Organization Address City/[facility] Ph one Number [facility] [address] [place], [place] [address] [facility] * RHYTHM STRIP - SCAN (05/15/2019 [...] is n ot available. Performing Organization Address City/[facility] Ph one Number [facility] [id number] [place], [place] * Bilirubin, direct (05/14/2019 9:30 AM CDT) Only the most recent of 4 results within the time period is included. Bilirubin, Direct 2.0 (H) 0.1 - 0.5 mg/dL [facility] Specimen Blood Performing Organization Address City/[facility] Ph one Number [facility] [address] [place], [place] [address] [facility] * EKG-SCANNED (05/13/2019 11:03 AM CDT) [...] Phosphorus 3.4 2.3 - 4.7 mg/dL [facility] Specimen Blood Narrative Performed At Business Performance Advisor YOLANDA Jang [facility] Performing Organization Address City/[facility] Ph one Number [facility] [address] [place], [place] [address] [facility] * Magnesium (05/10/2019 5:22 AM CDT) Only the most recent of 14 results within the time period is included. Magnesium 1.9 1.6 - 2.6 mg/dL [facility] Specimen Blood Narrative Performed At Business Performance Advisor ID - ULYSSES Jang [facility] Performing Organization Address City/State/Zipcode Ph one Number [facility] [address] [place], [place] [address] [facility] * [place] Myocardial Perfusion Pet/CT (Rest & Stress) (05/09/2019 2:55 PM CDT) Specimen Narrative Performed At FINAL REPORT Let's Talk PROCEDURE: MYOCARDIAL PERFUSION PET HEAVENLY GING (Rest/Stress) CPT CODE: 79199 INDICATION: Assess symptoms/risk factor s of possible [...] Report Verified Date/Time: 0 16:05:35 Reading Location: [address] Fl[address] P327B Nuc Med Reading Room Procedure Note Interface, External Ris In - 05/09/2019 4:07 PM CDT FINAL REPORT PROCEDURE: MYOCARDIAL PERFUSION PET IMAGING (Rest/Stress) CPT CODE: 62312 INDICATION: Assess symptoms/risk factors of possible CAD [...] Report Verified Date/Time: 05/09/2019 16:05:35 Reading Location: [facility] 3rd Flr P327B Nuc Med Reading Room Performing Organization Address [...] on 05/15/2019 10:24:47 PM Performing Organization Address City/State/[facility] Ph one Number GE MUSE * Comprehensive metabolic panel (05/09/2019 5:35 AM CDT) Only the most recent of 8 results within the time period is included. Protein, Total 6.1Comment: Specimen slightly 6.0 - 8.3 gm/dL [facility] hemolyzed [facility] Albumin 2.9 (L)Comment: Specimen 3.5 - 5.0 g/dL [facility] slightly hemolyzed [facility] Alkaline Phosphatase 116 40 - 150 U/L [facility] Total Bilirubin 4.1 (H)Comment: Specimen 0.2 - 1.2 mg/dL [facility] slightly hemolyzed [facility] Sodium 131 (L) 136 - 145 meq/L [facility] Potassium 3.9Comment: Specimen slightly 3.5 - 5.1 meq/L [facility] Chloride 99 98 - 107 meq/L [facility] CO2 23 22 - 29 meq/L [facility] BUN 22 (H) 7 - 21 mg/dL [facility] Creatinine 4.22 (H)Comment: Specimen 0.57 - 1.25 mg/dL C [facility] slightly hemolyzed [facility] Glucose 108 (H) 70 - 105 mg/dL [facility] Calcium 8.1 (L) 8.4 - 10.2 mg/dL [facility] AST 30Comment: Specimen slightly 5 - 34 U/L C [facility] ALT 8Comment: Specimen slightly 6 - 55 U/L [facility] EGFR 16Comment: ESTIMATED GFR IS mL/min/1.73 sq m [facility] NOT ACCURATE CREATININE [facility] CLEARANCE IN PREDICTING GLOMERULAR FILTRATION RATE. ESTIMATED GFR IS NOT APPLICABLE FOR DIALYSIS PATIENTS. Specimen Blood Narrative Performed At Business Performance Advisor ID - ULYSSES M [facility] Specimen slightly icteric [facility] Performing Organization Address City/State/Zipcode Ph one Number [place] [address] [facility] * TRANSFUSION SERVICE REPORT - SCAN (05/08/2019 5:52 PM CDT) Only the most recent of 14 results within the time period is included. Narrative Performed At This result has an attachment that is n ot available. * Limited 2D Echocardiogram (05/08/2019 11:40 AM CDT) Ejection Fraction [facility] Specimen Narrative Performed At Transthoracic Echocardiography Report (TTE) [facility]ART[facility] Demographics [facility] Patient Name INDRA GALVAN Date of Study 05/08/2019 YAN CORDERO [id number] Gender Male Visit Number [id number] Unknown [id number] Room Number 6213 Number Date of Birth1980 Referring Physician ROBBIE NEW Age38 year(s)Chayito her StarkRennyalexandria Yepez AnalystAlex Betty Ram MD Procedure Type of [...] (>60%) . Left AtriumLA s ize is qzbf-ea-nikhcnmuvn enlarged . Right VentricleNormal r ight ventricle [...] 05/08/2019 YAN CORDERO Gender Male Visit Number [id number] Race Unknown Room Number 6213 Number Date of 1980 Referring Physician ROBBIE NEW Age 38 year(s) After School Caregiver Renny Yepez Production Control Expert Nick Navarro Interpreting Physician MELVA Jackson Procedure [...] (>60%) . Left Atrium LA size is cdej-di-cbqjegggcg enlarged . Right Ventricle Normal right ventricle [...] of Yasmin.: 3.23 cm Performing Organization Address [facility] one Number [facility] MKCKESSON CPACS * Procalcitonin (05/08/2019 3:02 AM CDT) Only the most recent of 3 results within the time period is included. Procalcitonin 3.64 (H) <0.05 ng/mL [facility] Specimen Blood Narrative Performed At SEPSIS RISK (ng/mL) [facility] Low:0.05-0.[address] [facility] Intermediate: 0.51-2.00 High: >=2.01 Performing Organization Address [facility] one Number [place] [address] MEDICAL CENTER * Manual Differential (05/08/2019 3:02 AM CDT) Only the most recent of 3 results within the time period is included. % Neutros 74 % [facility] % Lymphs 12 % [facility] % Monos 9 % [facility] % Eos 2 % [facility] % Baso 3 % [facility] # Neutros 8.66 (H) 1.78 - 5.38 K/ul [facility] # Lymphs 1.40 1.32 - 3.57 K/ul [facility] # Monos 1.05 (H) 0.30 - 0.82 K/uL [facility] # Eos 0.23 0.04 - 0.54 K/uL [facility] # Baso 0.35 (H) 0.01 - 0.08 K/uL [facility] Total Counted 100 [facility] Platelet Morphology Normal [facility] Toxic Granulation Present [facility] Polychromasia 2+ moderate [facility] Hypochromia 1+ few [facility] Anisocytosis 1+ few [facility] Macrocytes 1+ few [facility] Poikilocytes 1+ few [facility] [place] Cells 1+ few [facility] Artifact Present [facility] Platelet Conc Adequate [facility] Specimen Blood Narrative Performed At Business Performance Advisor ID - Ivonne Gray [facility] User comments: [facility] Slide comments: Performing Organization Address City/State/Zipcode Ph one Number [facility] [address] [place], [place] [address] MEDICAL CENTER * Prepare Leuko-Red RBC (05/07/2019 11:54 PM CDT) Only the most recent of 8 results within the time period is included. CROSSMATCH COMPATIBLE SAFETRACE TX Unit ABO B Pos SAF[place]ACE TX UNIT NUMBER [id number] [place] Status TX_TIMEINCHART [facility] [place] Blood Bank Product RED BLOOD CELLS [place] PRODUCT CODE [id number] [place] Specimen Other Performing Organization Address City/State/Zipcode Ph one Number [place] * PERIPHERAL VASCULAR REPORT - SCAN (05/07/2019 9:12 PM CDT) Only the most recent of 2 results within the time period is included. Narrative Performed At This result has an attachment that is n ot available. * Body fluid culture + gram stain (05/07/2019 7:20 PM CDT) Result No growth [facility] Gram Stain Result 1+ White blood cells seen [facility] Gram Stain Result No organisms seen [facility] Specimen Body Fluid Performing Organization Address City/[facility] Ph one Number [address] [address] [facility] * Cytology (05/07/2019 7:20 PM CDT) Case Report Medical Cytology [facility] Report [facility] Case: [id number] Authorizing Provider:Robbie New MD Collected: 05/07/2019 1920 [address]: 05/08/19 20 1445 Pathologist: Josh Yang MD Specimen:Pericardial DIAGNOSIS PERICARDIAL FLUID (CYTOSPINS): [facility] - NEGATIVE FOR MALIGNANCY [facility] Signing Pathologist Direct Phone Line: [phone] CPT Code(s) [address]5711 [facility] CLINICAL DATA Pericardial effusion, [facility] cirrhosis [facility] SPECIMEN SOURCE PERICARDIAL FLUID [facility] GROSS DESCRIPTION 600 mls bloody fluid; 4 [facility] cytospins [facility] Collected: [id number] Received: [id number] STATEMENT OF ADEQUACY Satisfactory [facility] Gross assessment was [facility] performed at Center, Department of [facility] TER Pathology, [address] [place] [address], [place] [address], Technical component was [facility] performed at [place], Department of [facility] TER Pathology, [address] [place] [address], Professional component [facility] was performed at [place], Department of [facility] TER Pathology, [address] [place] [address], Specimen Body Fluid Narrative Performed At This result has an attachment that is n ot available. Performing Organization Address City/State/Zipcode Ph one [address] [address] MEDICAL CENTER * 2D Echo W/Doppler(CW/PW/Color) (05/07/2019 6:32 PM CDT) Ejection Fraction [facility] Specimen Narrative Performed At Transthoracic Echocardiography Report (TTE) [facility] Demographics [facility] Patient Name INDRA GALVAN Date of Study05/07/2019 YAN CORDERO [id number] Gender Male Visit Number [id number] Unknown [id number] Room [id number] Number Date of Birth1980 Barron sanchez Age38 year(s)Sonograp Darlene Jerez Inte rpreting Betty JacksonMD Fellow Indra [...] 05/07/2019 YAN CORDERO Gender Male Visit Number [id number] Race Unknown Room Number 6213 Number Date of 1980 Referring Robbie New MD Physician Age 38 year(s) After School Caregiver Aneudy Jerez Interpreting Vic Caruso Physician Fellow [...] pericardial effusion is present. Performing Organization Address City/State[facility] Ph one Number [facility] [employer] [facility] * Carotid doppler bilateral (05/06/2019 4:05 PM CDT) Ejection Fraction [facility] [employer] [facility] Specimen Impressions Performed At Right Impression [facility] 1. The internal carotid artery is within normal limit [facility] 2. The external carotid artery is withi [...] Measurements:ICAPSV/CC APSV 0.96.ICAEDV/CCAEDV 1.42. Narrative Performed At LAB - Carotid Duplex Study [facility]ART[facility] Demographics [facility] Patient Name INDRA GALVAN Date of Study05/06/2019 RUSS VEE JR. [id number] Visit Number [id number] Gender Male Accession Number [id number] Date of Birth1980 Merrill Acevedo ra Room [id number] PhysicianAGACNP SonographerGzay Maki RVS Interpreting Josh Meeks [...] 05/06/2019 YAN CORDERO Age 38 Visit Number [id number] Gender Male Accession Number [id number] Date of 1980 Referring Karen Carranza Room Number 6213 Physician SARAH After School Caregiver Cb Maki RVS Interpreting Karen Blackwell, Physician [...] Performing Organization Address City/State/Zipcode Ph one Number [facility] * REPORT OF PROCEDURE - ENDOSCOPY URL (05/06/2019 1:43 PM CDT) Narrative Performed At This result has an attachment that is n ot available. * 2D Echo W/Doppler(CW/PW/Color) (05/06/2019 1:06 PM CDT) Ejection Fraction [facility] Specimen Narrative Performed At Transthoracic Echocardiography Report (TTE) [facility] Demographics [facility] Patient NameINDRA GALVAN Date of Study05/06/2019 YAN Daniel Gender Male Visit [id number] Race Unknown Room [id number] Number Date of 1980 Barron plummer Age 38 year(s) [facility] Production Control Expert Joanna Whitley Interpreting Pratik Rubin MD Procedure [...] cm LV PW Diastolic: 1.31 cm LVEDV Nwe's:95.93 ml LVESV New's:33.43 ml LVEF New's: 65.2 [...] 05/06/2019 YAN CORDERO Gender Male Visit Number [id number] Race Unknown Room Number 2454 Number Date of 1980 Referring Robbie New MD Physician Age 38 year(s) After School Caregiver Aneudy Jerez Production Control Expert Joanna Whitley Interpreting Pratik Alexis MD Procedure [...] Gradient: 30.26 mmHg Performing Organization Address [facility] one Number [facility] MKCKESSON CPACS * Transfuse Leuko-Red RBC (05/06/2019 3:24 AM CDT) Only the most recent of 18 results within the time period is included. * Troponin I (05/05/2019 9:09 PM CDT) Only the most recent of 3 results within the time period is included. Troponin I <0.01 0.00 - 0.03 ng/mL [facility] Specimen Blood Narrative Performed At Troponin I (TnI) levels must be interpreted in the co ntext of the presenting [facility] symptoms and the clinical findings. Elevated TnI leve ls indicate myocardial [facility] damage, but are not specific for ischem ic heart disease. Elevated TnI levels are seen in patients with other cardiac con ditions (including myocarditis and congestive heart failure), and slight T nI elevations occur in patients with other conditions, including sepsis, tay al failure, acidosis, acute neurological disease, and persistent tachyarrhythmia . Business Performance Advisor ID - BS Performing Organization Address [facility] one Number [place] [address] MEDICAL CENTER * ECG 12 lead (05/05/2019 8:53 PM CDT) Only the most recent of 5 results within the time period is included. Specimen Narrative Performed At Ventricular Rate 128 BPM Belly MUSE Atrial Rate 89 BPM QRS Duration 94 ms Q-T Interval 336 ms QTC Calculation(Bazett) 490 ms R Clifton 151 degrees T Clifton -88 degrees Atrial fibrillation Left posterior fascicular [...] wave abnormality in Anterolateral leads Confirmed by NAVARIMD ANDERSEN JOSEPH P ([id number]) on 05/06/2019 6:34:11 AM Procedure Note Interface, External Ris In - 05/06/2019 6:34 AM CDT Ventricular Rate 128 BPM Atrial Rate 89 BPM QRS Duration 94 ms Q-T Interval 336 ms QTC Calculation(Bazett) 490 ms R Clifton 151 degrees T Clifton -88 degrees Atrial fibrillation Left posterior fascicular [...] leads Confirmed by MD YORK JOSEPH P ([id number]) on 05/06/2019 6:34:11 AM Performing Organization Address [facility] one Number GE MUSE * Hepatitis B surface antigen (05/05/2019 3:02 PM CDT) Only the most recent of 2 results within the time period is included. HBsAg Screen Nonreactive Nonreactive [facility] Specimen Blood Narrative Performed At Business Performance Advisor ID - BS [facility] Performing Organization Address [facility] one [address] 0 [phone] [place] [address] * Occult blood, stool (05/05/2019 12:07 PM CDT) Occult blood Negative Negative [facility] Specimen Stool Performing Organization Address [facility] one [address] [address] [facility] * ABORH, manual (05/05/2019 9:51 AM CDT) ABO Grouping B [facility] Rh Factor POS [facility] Specimen Blood Performing Organization Address [facility] Ph one [address] [address] [facility] * Iron, TIBC, % sat. (without ferritin) (05/05/2019 9:51 AM CDT) Only the most recent of 2 results within the time period is included. Iron 88.0 40.0 - 160.0 ug/dL [facility] TIBC 130 (L) 250 - 450 ug/dL [facility] Iron % Saturation 68 (H) 20 - 55 % [facility] Specimen Blood Narrative Performed At Business Performance Advisor ID - PIAYA L [facility] Performing Organization Address City/[facility] Ph one [address] [address] [facility] * Reticulocyte count (05/05/2019 9:51 AM CDT) % Retic 2.3 (H) 0.5 - 1.8 % [facility] Specimen Blood Narrative Performed At Business Performance Advisor ID - [id number] [facility] Performing Organization Address [facility] Ph one [address] [address] [facility] * Direct AHG (LUMA)/Direct Antonia (05/05/2019 9:51 AM CDT) Direct AHG-IGG NEGATIVE [facility] Direct AHG-C3B, C3D NEGATVIE [facility] Specimen Blood Performing Organization Address City/[facility] Ph one [address] [address] [phone] [facility] * Ferritin (05/05/2019 9:51 AM CDT) Only the most recent of 2 results within the time period is included. Ferritin 1,081 (H) 5 - 275 ng/mL [facility] Specimen Blood Narrative Performed At Business Performance Advisor ID - AAHAMID [facility] Performing Organization Address City/[facility] Ph one [address], [place] [address] 0 [phone] [place] [address] * Lactic acid, venous (05/05/2019 12:29 AM CDT) Only the most recent of 3 results within the time period is included. Lactate, Venous 2.6 (H) 0.5 - 2.2 mmol/L [facility] Specimen Blood Narrative Performed At Business Performance Advisor ID - PIAYA L [facility] Specimen slightly icteric [facility] Performing Organization Address [facility] Ph one Number [address] 0 [phone] [place] [address] * Type and screen, automated ([facility] and C[facility] only) (05/04/2019 8:42 PM CDT) Only the most recent of 5 results within the time period is included. ABO/RH AUTOMATED (BEAKER) B POSITIVE [facility] Ab Scrn NEGATIVE [facility] Specimen Blood Performing Organization Address [facility] Ph one Number [address] [address] [facility] * Urinalysis w/Microscopic + Reflex to Culture (05/04/2019 7:53 PM CDT) Color, UA Yellow [facility] Clarity, UA Hazy [facility] Specific [place], UA 1.011 1.001 - 1.035 [facility] pH, UA 5.5 5.0 - 8.0 [facility] Protein, UA 100 mg/dL (A) Negative [facility] Glucose, UA 100 mg/dL (A) Negative [facility] Ketones, UA Negative Negative [facility] Bilirubin, UA Negative Negative [facility] Blood, UA Negative Negative [facility] Nitrite, UA Negative Negative [facility] Leukocytes, UA Negative Negative [facility] Urobilinogen, UA 0.2 0.2 - 1.0 mg/dL [facility] RBC, UA 7 /HPF [facility] WBC, UA 12 /HPF [facility] Bacteria, UA Occasional [facility] Mucus Rare [facility] Squam Epithel, UA 18 /HPF [facility] Hyaline Casts, UA 78 /LPF [facility] Casts 70 /LPF [facility] Crystals, Urine Occasional [facility] Yeast Moderate [facility] Specimen Source [facility] Specimen Urine Narrative Performed At Business Performance Advisor ID - [auto] [facility] Business Performance Advisor ID - tech [facility] Performing Organization Address [facility] Ph one Number [place] [address] [phone] [place] [address] * Strep pneumoniae antigen (05/04/2019 7:53 PM CDT) Strep pneumoniae Antigen Presumptive negative for Presumptive negative for [facility] pneumococcal pneumonia - see pneumococcal pneumonia - [facility] comment see comment, Presumptive negative for pneumococcal meningitis - see comment Specimen Urine Narrative Performed At Presumptive negative for pneumococcal p neumonia, suggesting no current or recent [facility] pneumococcal infection. Infection due t o S. pneumoniae cannot be ruled out since [facility] the antigen present in the sample may b e below the detection limit of the test. Performing Organization Address City/[facility] Ph one Number [place] [address] [facility] * Legionella antigen, urine (05/04/2019 7:53 PM CDT) Legionella Urine Antigen Negative - see commentComment: [facility] Negative for L. pneumophila [facility] serogroup 1 antigen, suggesting no recent or current infection with this serogroup. Legionellosis cannot be ruled out since other serogroups and species may cause disease. Specimen Urine Performing Organization Address [facility] one Number [place] [address] [facility] * Urine culture (05/04/2019 7:53 PM CDT) Result <10,000 col/mL skin chase [facility] Specimen Urine Performing Organization Address [facility] one Number [place] [address] [facility] * PT/aPTT (05/04/2019 7:29 PM CDT) Only the most recent of 3 results within the time period is included. Protime 18.9 (H) 11.9 - 14.2 seconds [facility] INR 1.6 <=5.9 [facility] PTT 40.7 (H) 22.5 - 36.0 seconds [facility] Specimen Blood Narrative Performed At Effective 07/24/2018: PT Reference Range Change [facility] New: 11.9-14.2Previous: 11.7-14.7 [facility] MEDICAL CE NTER RECOMMENDED COUMADIN/WARFARIN INR THERA PY RANGES STANDARD DOSE: 2.0-3.0Includes: PRO PHYLAXIS for venous thrombosis, systemic embolization; TREATMENT for venous thro mbosis and/or pulmonary embolus. HIGH RISK: Target INR is 2.5-3.5 for pa tients wiht mechanical heart valves. Performing Organization Address [facility] one Number [address] [address] [facility] * Blood Culture - Routine (Left Venipuncture) (05/04/2019 7:29 PM CDT) Only the most recent of 6 results within the time period is included. Result No growth in 5 days [facility] Specimen Blood Performing Organization Address [facility] one Number [place] [address] 0 [phone] [address] * B-type Natriuretic Factor (BNP) (05/04/2019 7:29 PM CDT) BNP 612 (H) 0 - 100 pg/mL [facility] Specimen Blood Narrative Performed At Business Performance Advisor ID - DB [facility] Performing Organization Address [facility] Ph one [place] [phone] * Rapid Influenza A&B Screen (05/04/2019 7:28 PM CDT) Rapid Influenza A Antigen Negative Negative, Inconclusi ve [facility] Rapid influenza B Antigen Negative Negative, Inconclusi ve [facility] Specimen Nasal Performing Organization Address [facility] one [place] [address] 0 [phone] [address] * CRITICAL CARE (05/04/2019 6:47 PM [...] included. Specimen Narrative Performed At FINAL REPORT Let's Talk EXAM: Chest one view COMPARISON: December 22, 2018 Clinical history: Weakness FINDINGS: There is persistent cardiomeg daniel. There is interval improvement in pulmonary edema. The rig ht internal jugular chest tunneled dialysis catheter appears unch anged in position. The regional osseous structures are unremar kable Signed: Victorino Haines MD Report Verified Date/Time: 0 18:08:08 Reading Location: [facility] C013 Transiti onal Reading Room Procedure Note Interface, [...] Report Verified Date/Time: 05/04/2019 18:08:08 Reading Location: [address] Transitional Reading Room Performing Organization Address City/State/Zipcode Ph one Number Let's Talk * US pelvis with doppler (02/03/2019 9:35 AM ORDNANCE EQUIPMENT WORKER) Specimen Narrative Performed At FINAL REPORT Let's Talk Pelvic ultrasound dated 02/03/2019. COMMENT: Real-time transpelvic [...] iliac artery measures 1.0 cm. The left academic intern al iliac artery is not visualized. The bilateral common and external iliac veins are patent. IMPRESSION: Unremarkable pelvic vascula ture. Signed: Keith Garcia MD Report Verified Date/Time: 11:35:01 Reading Location: [address] Radiolo gy Reading Room Procedure Note Interface, External Ris In - 02/03/2019 11:37 AM ORDNANCE EQUIPMENT WORKER FINAL REPORT Pelvic ultrasound dated 02/03/2019. COMMENT: [...] Report Verified Date/Time: 02/03/2019 11:35:01 Reading Location: [address] Radiology Reading Room Performing Organization Address [facility] one Number RIS * Vitamin B12 and Folate (01/18/2019 5:47 PM ORDNANCE EQUIPMENT WORKER) Vitamin B12 1,988 (H) 213 - 816 pg/mL [facility] Folate 17.8 >=7.0 ng/mL [facility] Specimen Blood Performing Organization Address [facility] Ph one Number [address] [address] MED[facility] CENTER * Lactate dehydrogenase (LDH) (01/18/2019 5:47 PM ORDNANCE EQUIPMENT WORKER) Only the most recent of 2 results within the time period is included. LDH 192 125 - 220 U/L [facility] Specimen Blood Performing Organization Address [facility] Ph one Number [address] [facility] * Haptoglobin (01/18/2019 5:47 PM ORDNANCE EQUIPMENT WORKER) Only the most recent of 2 results within the time period is included. Haptoglobin 14 14 - 258 mg/dL [facility] Specimen Blood Performing Organization Address [facility] Ph one Number [place] [address] [facility] * Hemoglobin and hematocrit (01/18/2019 11:17 AM ORDNANCE EQUIPMENT WORKER) Only the most recent of 2 results within the time period is included. Hemoglobin 7.5 (L) 13.7 - 17.5 GM/DL [facility] Hematocrit 23.0 (L) 40.1 - 51.0 % [facility] Specimen Blood Performing Organization Address [facility] one Number [place] [address] 0 [phone] [place] [address] * CBC (Hemogram only) (01/18/2019 2:51 AM ORDNANCE EQUIPMENT WORKER) Only the most recent of 5 results within the time period is included. WBC 6.6 3.5 - 10.5 K/L [facility] RBC 2.11 (L) 4.63 - 6.08 M/L [facility] Hemoglobin 6.7 (L) 13.7 - 17.5 GM/DL [facility] Hematocrit 20.2 (L) 40.1 - 51.0 % [facility] MCV 95.7 (H) 79.0 - 92.2 fL [facility] MCH 31.8 25.7 - 32.2 pg [facility] MCHC 33.2 32.3 - 36.5 GM/DL [facility] RDW 17.3 (H) 11.6 - 14.4 % [facility] Platelets 74 (L) 150 - 450 K/CU MM [facility] MPV 10.1 9.4 - 12.4 fL [facility] nRBC 0 0 - 0 /100 WBC [facility] Specimen Blood Performing Organization Address [facility] Ph one Number [facility] [address] [place], [place] [address] [facility] * HLA TYPING CII (01/16/2019 3:56 PM ORDNANCE EQUIPMENT WORKER) HLA-DR AG1 15 [facility] HLA-DR AG2 4 [facility] HLA-DR AG4-2 53 [facility] HLA-DR AG5-1 51 [facility] HLA-DQA1 AG 1-1 01 [facility] HLA-DQA1 AG 1-2 03 [facility] HLA-DQB1 AG 1-1 6 [facility] HLA-DQB1 AG 1-2 8 [facility] HLA-DPA1 AG 1-1 01 [facility] HLA-DPA1 AG 1-2 01 [facility] HLA-DPB1 AG 1-1 02:01 [facility] HLA-DPB1 AG 1-2 04:02 [facility] Specimen Blood Narrative Performed At Disclaimer: [facility] This test was developed and its perform ance characteristics determined by the [facility] Laboratory. It has not been cleared [...] complexity clinical laboratory testing. Performing Organization Address City/[facility] Ph one Number [facility] ONE Glynn Yovany, MS: [id number], [place] [address] CLIA#[id number] CAP#[id number] UNOS#[id number] * HLA TYPING CI (01/16/2019 3:56 PM ORDNANCE EQUIPMENT WORKER) HLA-A AG1 3 [facility] HLA-A AG2 68 [facility] HLA-B AG1 7 [facility] HLA-B AG2 35 [facility] HLA-C AG1 7 [facility] HLA-C AG2 7 [facility] HLA-B BW1 6 [facility] HLA-B BW2 6 [facility] Specimen Blood Narrative Performed At Disclaimer: [facility] This test was developed and its perform ance characteristics determined by the [facility]. It has not been cleared [...] clinical laboratory testing. Performing Organization Address [facility] one Number [facility] ONE Glynn Yovany, MS: [id number], [place] [address] CLIA#[id number] CAP#[id number] UNOS#[id number] * FLOW PRA CLASS II WITH REFLEX TO ANTIBODY SPECIFICITY (01/16/2019 3:56 PM ORDNANCE EQUIPMENT WORKER) Flow Class II Percent 0 [facility] NG Positive Specimen Blood Narrative Performed At Disclaimer: [facility] This test was developed and its perform ance characteristics determined by the [facility]. It has not been cleared [...] clinical laboratory testing. Performing Organization Address [facility] one Number [facility] ONE Gregorio Pedroza, MS: [id number], [place] [address] CLIA#[id number] CAP#[id number] UNOS#[id number] * FLOW PRA CLASS I WITH REFLEX TO ANTIBODY SPECIFICITY (01/16/2019 3:56 PM ORDNANCE EQUIPMENT WORKER) Flow Class I Percent 20 [facility] G Positive Specimen Blood Narrative Performed At Disclaimer: [facility] This test was developed and its perform ance characteristics determined by the [facility]. It has not been cleared [...] clinical laboratory testing. Performing Organization Address [facility] one Number [facility] ONE Gregorio Pedroza, MS: [id number], [place] [id number] CLIA#[id number] CAP#[id number] UNOS#[id number] * AB SPECIFICITY CLASS I (01/16/2019 3:56 PM ORDNANCE EQUIPMENT WORKER) AB Specificity Class I NO CLASS I ANTIBODY DETECTED [facility] WITH MFIs > 4000 Specimen Blood Narrative Performed At Disclaimer: [facility] This test was developed and its perform ance characteristics determined by the [facility]. It has not been cleared [...] clinical laboratory testing. Performing Organization Address [facility] one Number [facility] ONE Gregorio Pedroza, MS: [id number], [place] [address] CLIA#[id number] CAP#[id number] UNOS#[id number] * Alpha fetoprotein (AFP), tumor marker (01/16/2019 3:56 PM ORDNANCE EQUIPMENT WORKER) Alpha-Fetoprotein 2.7 <10.0 ng/mL [facility] Specimen Blood Performing Organization Address [facility] one Number [place] [id number] [place], [place] [address] [facility] * Drug screen, urine, transplant (01/04/2019 5:39 PM ORDNANCE EQUIPMENT WORKER) Specimen Urine Narrative Performed At This result has an attachment that is n ot available. Performing Organization Address [facility] one Number [facility] [address] [place], [place] [phone] * Drug screen, urine, comprehensive (01/04/2019 5:39 PM ORDNANCE EQUIPMENT WORKER) Specimen Urine Narrative Performed At This result has an attachment that is n ot available. 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 Vancomycin Rm 16.4 ug/mL [facility] Specimen Blood Narrative Performed At Reference Range: No Normals [facility] Performing Organization Address [facility] Ph one Number [facility] [address] [place], [place] [address] [facility] * Venous doppler legs bilateral (12/24/2018 6:55 PM CDT) Ejection Fraction [facility] MKCKESSON CPACS Specimen Impressions Performed At Right Impression [facility] 1. There is no [...] PV LAB - Lower Extremities DVT Study [facility] Demographics [facility] Patient Name INDRA GALVAN Date of Study12/24/2018 RUSS VEE JR. [id number] Visit Number [id number] Gender Male Accession Number [id number] Date of Birth1980 [place] Naranjo [id number] Physician SonographDagoberto Maki RVS Interpreting Josh Meeks Procedure Type of Study: Veins: Lower [...] 12/24/2018 YAN CORDERO Age 38 Visit Number [id number] Gender Male Accession Number [id number] Date of 1980 Referring Audie Hoyt MD Room Number [id number] Physician After School Caregiver Cb Maki RVS Interpreting Karen Blackwell Physician Procedure Type of Study: Veins: Lower [...] 12/23/2018 CREATININE 6.77 (H) 12/23/2018 Results for GARO INDRA YAN CORDERO ( ) as of 12/23/2018 23:27 Ref. Range 12/23/2018 04:01 Hepatitis B Surface Ag Latest Ref Range : NonreactiveNonreactive * CT lower extremity without IV contrast right (12/22/2018 9:04 PM CDT) Specimen Narrative Performed At FINAL REPORT Belly [facility] CT right lower extremity. CLINICAL HISTORY: Knee trauma, tenderne ss or effusion, initial exam (Age > 1y) TECHNIQUE: Contiguous axial images of t he right lower extremity without contrast with coronal and sagit chely reformations. This exam was performed according to the [facility] nta dose optimization program which includes automated exposure [...] Date/Time: 12/23/2018 03:00:15 Performing Organization Address [facility] Ph one Number GE RIS * Vancomycin level, trough (12/22/2018 4:26 PM CDT) Vancomycin Tr 40.3 (HH) 10.0 - 20.0 ug/mL [facility] Specimen Blood Performing Organization Address [facility] Ph one Number [place] [address] [facility] * Fibrinogen (12/22/2018 3:55 AM CDT) Fibrinogen 195 (L) 225 - 434 mg/dl [facility] Specimen Blood Performing Organization Address [facility] Ph one Number [facility] [address] [place], [place] [address] [facility] * POC-Lactic Acid, Venous (12/21/2018 4:01 AM CDT) Only the most recent of 2 results within the time period is included. POC-Lactic Acid, Venous 1.6Comment: TESTED AT [facility] 0.9 - 1.7 mmol/L [address] [facility] Specimen Blood Performing Organization Address [facility] Ph one Number [address] [facility] * Ammonia (12/21/2018 2:48 AM CDT) Ammonia 65 18 - 72 mol/L [facility] Specimen Blood Performing Organization Address [facility] Ph one Number [address] 0 [phone] [place] [address] * XR knee complete 4 views right [...] condition an d review of old charts. after 11/24/2018 Insurance Payer Benefit Subscriber ID Type Phone Address Plan / Group BLUE CROSS/BLUE SHIELD BCBS PPO xxxxxxxxxxxx [address]PO [address] [place] [address] CHOICE [phone] Advance Directives For more information, please contact: [facility] [address] [place] [address] Date Inactivated Comments Code Status [...]
[2019-11-25 21:01] LABS: BASOPHILS % 0.3 % (0.0-1.0); EOSINOPHILS # (AUTO) 0.5 (0.0-0.4); EOSINOPHILS % 3.1 % (0.0-6.0); LYMPHOCYTES # (AUTO) 1.1 (1.0-3.2); LYMPHOCYTES % 7.8 % (18.0-39.1); MEAN CORPUSCULAR HGB CONC 32.8 g/dL (31-35); MEAN CORPUSCULAR VOLUME 106.5 fL (81-99); MONOCYTES # (AUTO) 1.9 (0.2-0.8); MONOCYTES % 13.2 % (4.4-11.3); NEUTROPHILS # (AUTO) 10.8 (2.1-6.9); RED BLOOD COUNT 1.23 x10e6/uL (4.3-5.7); RED CELL DISTRIBUTION WIDTH 20.2 % (11.7-14.4)
[2019-11-25 21:02] LABS: PLATELET COUNT 54 x10e3/uL (140-360)
[2019-11-25 21:03] LABS: HEMATOCRIT 13.1 % (38.2-49.6); HEMOGLOBIN 4.3 g/dL (14.0-18.0)
[2019-11-25 21:16] LABS: ANION GAP 14.3 mmol/L (8-16); CALCIUM 7.1 mg/dL (8.4-10.2); CREATININE, SERUM 2.51 mg/dL (0.72-1.25); POTASSIUM 3.3 mmol/L (3.5-5.1)
[2019-11-25 21:28] LABS: INR 1.65; PROTHROMBIN TIME 20.3 seconds (11.9-14.5)
[2019-11-25 21:29] LABS: PARTIAL THROMBOPLASTIN TIME 52.2 seconds (23.8-35.5)
[2019-11-25] MEDS ORDERED: SODIUM CHLORIDE 0.9% 250ML 250 ML IV ONE (21:30)
--- NOTE | 2019-11-25 21:52 | Emergency Department Note ---
History of Present Illnes History of Present Illness Chief Complaint: General Medicine Complaints History of Present Illness This is a 39 year old male PRESENTS TO ED REPORTING THAT HE WAS INFORMED OF LOW HGB AT "5.2" TODAY, PT ONLY C/O MILD LIGHTHEADEDNESS/DIZZINESS, PT APPEARS IN NAD, RESP E/U, SKIN W/D, PT JAUNDICED; STATES CHRONIC BLOOD TRANSFUSIONS DUE TO GI BLEED AND KIDNEY DISEASE- STATES WAS ON LIVER AND KIDNEY TRANSPLANT LIST, PT DENIES ANY BLEEDING, STATES HX PORTAL HTN- BP TAKEN ON RLE; RECEIVES DIALYSIS M/W/F . 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 Any updates have been documented here. Past Medical History Recent Fever: No Clinical Suspicion of Infectio: No New/Unexplained Change in Ment: No Past Medical History: Liver Disease, ESRD, Hemodyalisis, Anemia Other Medical History: ETOH ABUSE, PANCREATITIS, PNEUMONIA. Past Surgical History: None Other Surgery: none Social History Smoking Cessation: Never Smoker Counseling Performed: No Alcohol Use: None Any Illegal Drug Use: No Family History Family history of heart diseas: No Other Last Tetanus: UTD Any Pre-Existing Lines (PICC,: No Review of Systems Review of Systems Constitutional: Reports no symptoms EENTM: Reports no symptoms Cardiovascular: Reports no symptoms Respiratory: Reports no symptoms Gastrointestinal: Reports no symptoms Genitourinary: Reports no symptoms Musculoskeletal: Reports no symptoms Integumentary: Reports no symptoms Neurological: Reports no symptoms Psychological: Reports no symptoms Endocrine: Reports no symptoms Hematological/Lymphatic: Reports no symptoms Physical Exam Related Data Allergies: Coded Allergies: No Known Allergies (Unverified , 10/16/18) Triage Vital Signs Vital Signs Date Time Temp Pulse Resp B/P (MAP) Pulse Ox O2 Delivery O2 Flow Rate FiO2 11/25/19 20:38 99.0 93 20 115/68 100 Room Air 11/25/19 21:34 3.0 Vital signs reviewed: Yes Physical Exam CONSTITUTIONAL Constitutional: Present well-developed, Present well-nourished, Present other (JAUNDICE); Absent distressed HENT HENT: Present normocephalic, Present atraumatic, Present oropharynx clear/moist, Present nose normal HENT L/R: Present left ext ear normal, Present right ext ear normal EYES Eyes: Reports PERRL, Reports conjunctivae normal, Reports scleral icterus NECK Neck: Present ROM normal PULMONARY Pulmonary: Present effort normal, Present breath sounds normal CARDIOVASCULAR Cardiovascular: Present regular rhythm, Present heart sounds normal, Present capillary refill normal, Present normal rate GASTROINTESTINAL Abdominal: Present soft, Present nontender, Present bowel sounds normal GENITOURINARY Genitourinary: Present exam deferred SKIN Skin: Present warm, Present dry, Present other (JAUNDICE) MUSCULOSKELETAL Musculoskeletal: Present ROM normal, Present edema (BILATERAL LOWER EXTREMITIES) NEUROLOGICAL Neurological: Present alert, Present oriented x 3, Present no gross motor or sensory deficits PSYCHOLOGICAL Psychological: Present mood/affect normal, Present judgement normal Results Laboratory Result Diagram: 11/25/19205111/25/192051 Laboratory Laboratory Tests Test 11/25/19 21:07 11/25/19 20:52 Prothrombin Time 20.3 seconds (11.9-14.5) Prothromb Time International Ratio 1.65 Activated Partial Thromboplast Time 52.2 seconds (23.8-35.5) White Blood Count 14.60 x10e3/uL (4.8-10.8) Red Blood Count 1.23 x10e6/uL (4.3-5.7) Hemoglobin 4.3 g/dL (14.0-18.0) Hematocrit 13.1 % (38.2-49.6) Mean Corpuscular Volume 106.5 fL (81-99) Mean Corpuscular Hemoglobin 35.0 pg (28-32) Mean Corpuscular Hemoglobin Concent 32.8 g/dL (31-35) Red Cell Distribution Width 20.2 % (11.7-14.4) Platelet Count 54 x10e3/uL (140-360) Neutrophils (%) (Auto) 74.0 % (38.7-80.0) Lymphocytes (%) (Auto) 7.8 % (18.0-39.1) Monocytes (%) (Auto) 13.2 % (4.4-11.3) Eosinophils (%) (Auto) 3.1 % (0.0-6.0) Basophils (%) (Auto) 0.3 % (0.0-1.0) Neutrophils # (Auto) 10.8 (2.1-6.9) Lymphocytes # (Auto) 1.1 (1.0-3.2) Monocytes # (Auto) 1.9 (0.2-0.8) Eosinophils # (Auto) 0.5 (0.0-0.4) Basophils # (Auto) 0.0 (0.0-0.1) Absolute Immature Granulocyte (auto 0.23 x10e3/uL (0-0.1) Sodium Level 136 mmol/L (136-145) Potassium Level 3.3 mmol/L (3.5-5.1) Chloride Level 100 mmol/L (98-107) Carbon Dioxide Level 25 mmol/L (22-29) Anion Gap 14.3 mmol/L (8-16) Blood Urea Nitrogen 12 mg/dL (7-26) Creatinine 2.51 mg/dL (0.72-1.25) Estimat Glomerular Filtration Rate 28 ML/MIN (60-) BUN/Creatinine Ratio 5 (6-25) Glucose Level 150 mg/dL (74-118) Calcium Level 7.1 mg/dL (8.4-10.2) Lab results reviewed: Yes Imaging Imaging results reviewed: Yes Assessment & Plan Medical Decision Making MDM T WTIH RECURRENT ANEMIA SECONDARY TO ESRD REQUIRING BLOOD TRANSFUSIONS CBC, BMP, TYPE AND SCREEN ORDERED PT WITH HGB OF 4.3 2 UNITS PRBC'S ORDERED FOR TRANSFUSION I SPOKE WITH DR PARKER PER PT REQUEST AND LEFT A MESSAGE FOR DR ENRIQUE, PT DUE FOR DIALYSIS IN AM Assessment & Plan Final Impression: (1) Anemia (2) Jaundice (3) Cirrhosis (4) ESRD (end stage renal disease) Depart Disposition: ADMITTED Last Vital Signs Date Time Temp Pulse Resp B/P (MAP) Pulse Ox O2 Delivery O2 Flow Rate FiO2 11/25/19 21:34 87 16 106/46 100 Nasal Cannula 3.0 11/25/19 20:38 99.0 Home Meds Active Scripts Vancomycin Hcl (VANCOCIN HCL) 250 Mg Capsule, 500 MG PO Q6HR for 10 Days Prov:JENNYFER PARKER MD 11/06/19 Sodium Bicarbonate (SODIUM BICARBONATE) 650 Mg Tablet, 1300 MG PO BID for 30 Days Prov:JENNYFER PARKER MD 11/06/19 Rifaximin (XIFAXAN) 550 Mg Tablet, 550 MG PO BID for 30 Days Prov:JENNYFER PARKER MD 11/06/19 Lactulose (LACTULOSE) 20 Gm/30 Ml Solution, 20 GM PO TID for 30 Days Prov:JENNYFER PARKER MD 11/06/19 Cholestyramine (CHOLESTYRAMINE LIGHT PACKET) 4 Gm Pack, 4 GM PO Q6H for 10 Days Prov:JENNYFER PARKER MD 11/06/19 Propranolol Hcl (PROPRANOLOL HCL) 10 Mg Tablet, 10 MG PO BID for 30 Days Prov:DEBO MOCK NP 10/21/19 Sucralfate (CARAFATE) 1 Gm Tablet, 1 GM PO ACHS for 30 Days Prov:DEBO MOCK NP 10/21/19 Prednisone (PREDNISONE) 20 Mg Tab, 40 MG PO DAILY for 28 Days Prov:DEBO MOCK NP 10/21/19 Pantoprazole Sodium* (PROTONIX) 40 Mg Tablet.dr, 40 MG PO ACB, #30 TAB Prov:DEBO MOCK NP 09/27/19 Reported Medications Tramadol Hcl* (ULTRAM 50MG*) 50 Mg Tab 11/02/19 Furosemide (FUROSEMIDE) 80 Mg Tablet 11/02/19 Hydroxyzine Hcl (HYDROXYZINE HCL) 25 Mg Tablet 11/02/19 Ondansetron Hcl (ONDANSETRON HCL) 4 Mg Tablet, 4 MG 11/02/19 Midodrine Hcl (MIDODRINE HCL) 10 Mg Tablet 09/26/19 Folic Acid (FOLIC ACID) 1 Mg Tablet, 1 MG PO DAILY, #30 TAB 05/27/18 Trazodone Hcl (TRAZODONE HCL) 50 Mg Tablet, 50 MG PO HS, #30 TAB 05/27/18 Medications in the ED Sodium Chloride 250 ml @ 0 mls/hr ONCE ONCE IV ; Start 11/25/19 at 21:30; Stop 11/25/19 at 21:31; Status JIMENA VIRK MD Nov 25, 2019 21:52
[2019-11-25 22:15] LABS: IRON 88 ug/dL (65-175); TRANSFERRIN < 70 mg/dL (174-364)
[2019-11-25 22:38] LABS: FERRITIN > 2000.00 ng/mL (21.81-274.66)
--- NOTE | 2019-11-25 23:23 | Diagnostic Imaging Report ---
EXAMINATION: CHEST SINGLE (PORTABLE) INDICATION: Anemia COMPARISON: Chest x-ray 11/01/2019, abdominal CT 10/18/2019 FINDINGS: TUBES and LINES: Right IJ central venous catheter, tip in the right atrium.. LUNGS: Low lung volumes. Stable left basilar subsegmental atelectasis/scarring. No consolidations. PLEURA: No pleural effusion or pneumothorax. HEART AND MEDIASTINUM: Cardiac size is within normal size limits. BONES AND SOFT TISSUES: No acute osseous lesion. Soft tissues are unremarkable. UPPER ABDOMEN: No free air under the diaphragm. IMPRESSION: Left basilar subsegmental atelectasis/scarring. Signed by: Aime Spain DO on 11/25/2019 11:19 PM
[2019-11-25] MEDS ORDERED: ONDANSETRON HCL INJ 2MG/ML 2ML 2 MG/ML VIAL IV PRN (23:30)
[2019-11-25] MEDS ORDERED: SODIUM CHLORIDE FLUSH 10 ML SYR INJ PRN (23:30)
--- OUTSIDE RECORDS SUMMARY | 2019-11-25 23:31 | XMS REPORT | Clinical Summary ---
Author Author [facility] Organization [facility] Address Unknown Phone Unavailable Care Team Providers Care Porter Bath Name Role Phone PCP Unavailable Allergies No [...] Dates Group BC/BS BC/BS PPO xxxxxxxxxxxx 2017-P [phone] [id number] [place] [address] Advance Directives Date Inactivated Comments Code Status Date Activated 01/28/2018 3:20 PM Full Code 01/24/2018 10:54 PM
--- OUTSIDE RECORDS SUMMARY | 2019-11-25 23:32 | XMS REPORT | Clinical Summary ---
Author Author PATY [facility] Hospitalmyde[facility] TextDiggerK[facility] HealthaSmallWorld[facility] Address Unknown Phone Unavailable Care Team Providers Care Marble Mason Name Role Phone Keith Hammond Unavailable Pcp, [...] Jessie Sanchez Appointment (LVM. Called to confirm [facility] f/u appt wpt. Itinerary mailed.) 01/20/2019 Telephone Transplant Alejandrina Quiroga MD Hasan, Syed Ali Reza, MD Khaderi, Perri Butterfield MD Anemia due to chronic kidney disease, on chronic dialysis (HCC) (Primary Dx); Alcoholic cirrhosis of liver without ascites (HCC); ESRD (end stage renal disease) (HCC); Gastrointestinal hemorrhage with melena 01/17/2019 [facility] Cardiology - Encounter 01/18/2019 01/17/2019 Travel Ye [...] unspecified type; Hemorrhoids, unspecified hemorrhoid type 01/03/2019 [facility] Cardiology - Encounter 01/06/2019 01/03/2019 Travel Jessie Emery Appointment (LVM. Calling to inform pt we have cancelled his 01/07 clinic appt and rescheduled him to 01/16 @ 2 pm. Itinerary mailed to pt.) 01/02/2019 [facility] Polly Pineda Appointment 01/01/2019 Telephone Transplant Servando [...] Portal hypertension (HCC) 12/21/2018 Hospital General Internal [place] - Encounter 12/26/2018 12/21/2018 Orders Only [...] unspecified vessel or lesion type, unspecified whether [place] or transplanted heart (HCC) BODY FLUID CULTURE [...] ms QTC Calculatio n(Bazett) 490 ms R Fate 151 degrees T Fate -88 degrees Undetermi lara rhythm Left posterior [...] ms QTC Calculatio n(Bazett) 262 ms R Fate 153 degrees T Fate -84 degrees Sinus tachycardi a with 1st [...] ms QTC Calculatio n(Bazett) 511 ms P Fate 254 degrees R Fate 46 degrees T Fate -73 degrees Atrial flutter with variable A-V [...] ms QTC Calculatio n(Bazett) 0 ms R Fate 0 degrees T Fate 0 degrees No QRS complexes found, no [...] ms QTC Calculatio n(Bazett) 557 ms P Fate 45 degrees R Fate 33 degrees T Fate 29 degrees Normal sinus rhythm Nonspecifi c [...] Alcohol ic hepatitis with DIFFERENTIAL 9:34 AM BRIQUETTE MOLDER ascites ESRD on hemodialysis (HCC) PROTHROMBIN TIME/INR Routine 04/07/2019 Alcoholic hepatitis with 9:34 AM BRIQUETTE MOLDER ascites ESRD on hemodialysis (HCC) HEPATIC FUNCTION PANEL Routine 04/07/2019 Alcohol ic hepatitis with 9:34 AM BRIQUETTE MOLDER ascites ESRD on hemodialysis (HCC) CBC W/PLT COUNT & AUTO Routine 04/07/2019 Alcohol ic hepatitis with DIFFERENTIAL 9:34 AM BRIQUETTE MOLDER ascites ESRD on hemodialysis (HCC) BASIC METABOLIC PANEL (7) Routine 04/07/2019 Alco holic hepatitis with 9:34 AM BRIQUETTE MOLDER ascites ESRD on hemodialysis (HCC) CBC W/PLT COUNT & AUTO Routine 03/14/2019 Alcohol ic cirrhosis of DIFFERENTIAL 10:32 AM BRIQUETTE MOLDER liver without ascit es (HCC) PROTHROMBIN TIME/INR Routine 03/14/2019 Alcoholic cirrhosis of 10:32 AM BRIQUETTE MOLDER liver without ascites (HCC) CBC W/PLT COUNT & AUTO Routine 03/14/2019 Alcohol ic cirrhosis of DIFFERENTIAL 10:32 AM BRIQUETTE MOLDER liver without ascit es (HCC) HEPATIC FUNCTION PANEL Routine 03/14/2019 Alcohol ic cirrhosis of 10:32 AM BRIQUETTE MOLDER liver without ascites (HCC) BASIC METABOLIC PANEL (7) Routine 03/14/2019 Alco holic cirrhosis of 10:32 AM BRIQUETTE MOLDER liver without ascites (HCC) CBC W/PLT COUNT & AUTO Routine 03/04/2019 Iron de ficiency anemia, DIFFERENTIAL 10:00 AM BRIQUETTE MOLDER unspecified iron deficiency anemia type COMPREHENSIVE METABOLIC Routine 03/04/2019 Alcoho lic cirrhosis of PANEL 10:00 AM BRIQUETTE MOLDER liver with ascites (HCC) CBC W/PLT COUNT & AUTO Routine 03/04/2019 Iron de ficiency anemia, DIFFERENTIAL 10:00 AM BRIQUETTE MOLDER unspecified iron deficiency anemia type BILIRUBIN, DIRECT Routine 03/04/2019 Alcoholic ci rrhosis of 10:00 AM BRIQUETTE MOLDER liver with ascites (HCC) PROTHROMBIN TIME/INR Routine 03/04/2019 Alcoholic cirrhosis of 9:55 AM BRIQUETTE MOLDER liver with ascites (HCC) COMPREHENSIVE METABOLIC Routine 02/03/2019 Fatty liver PANEL 10:13 AM BRIQUETTE MOLDER BILIRUBIN, DIRECT Routine 02/03/2019 Fatty liver 10:13 AM BRIQUETTE MOLDER CBC W/PLT COUNT & AUTO Routine 02/03/2019 ESRD (e nd stage renal DIFFERENTIAL 10:12 AM BRIQUETTE MOLDER disease) (HCC) Acute blood loss anemia PROTHROMBIN TIME/INR Routine 02/03/2019 Fatty maru er 10:12 AM BRIQUETTE MOLDER CBC W/PLT COUNT & AUTO Routine 02/03/2019 ESRD (e nd stage renal DIFFERENTIAL 10:12 AM BRIQUETTE MOLDER disease) (HCC) Acute blood loss anemia US PELVIS WITH DOPPLER Routine 02/03/2019 ESRD (e nd stage renal 9:35 AM BRIQUETTE MOLDER disease) (HCC) Pre-transplant evaluation for end stage renal disease RHYTHM STRIP - SCAN 01/21/2019 11:42 AM BRIQUETTE MOLDER RHYTHM STRIP - SCAN 01/20/2019 4:02 PM BRIQUETTE MOLDER RHYTHM STRIP - SCAN 01/20/2019 4:02 PM BRIQUETTE MOLDER TRANSFUSION SERVICE 01/19/2019 REPORT - SCAN 6:00 PM BRIQUETTE MOLDER PREPARE LEUKO-REDUCED RBC Routine 01/18/2019 11:55 PM BRIQUETTE MOLDER TRANSFUSION SERVICE 01/18/2019 REPORT - SCAN 6:03 PM BRIQUETTE MOLDER VITAMIN B12 AND FOLATE Routine 01/18/2019 5:47 PM BRIQUETTE MOLDER HAPTOGLOBIN Routine 01/18/2019 5:47 PM BRIQUETTE MOLDER LACTATE DEHYDROGENASE Routine 01/18/2019 (LDH) 5:47 PM BRIQUETTE MOLDER IRON, TIBC, % SAT. Routine 01/18/2019 (WITHOUT FERRITIN) 5:47 PM BRIQUETTE MOLDER FERRITIN Routine 01/18/2019 5:47 PM BRIQUETTE MOLDER ULTRAFILTRATION HD CRRT Routine 01/18/2019 3:13 PM BRIQUETTE MOLDER HEMOGLOBIN AND HEMATOCRIT STAT 01/18/2019 11:17 AM BRIQUETTE MOLDER CBC (HEMOGRAM ONLY) Routine 01/18/2019 2:51 AM BRIQUETTE MOLDER TRANSFUSE LEUKO-REDUCED Routine 01/17/2019 RED BLOOD CELLS 11:33 PM BRIQUETTE MOLDER TRANSFUSE LEUKO-REDUCED Routine 01/17/2019 RED BLOOD CELLS 10:39 PM BRIQUETTE MOLDER HEMODIALYSIS INPATIENT Routine 01/17/2019 9:29 PM BRIQUETTE MOLDER TYPE AND SCREEN, Routine 01/17/2019 AUTOMATED 3:35 PM BRIQUETTE MOLDER CBC W/PLT COUNT & AUTO Routine 01/16/2019 Alcohol ic cirrhosis of DIFFERENTIAL 3:56 PM BRIQUETTE MOLDER liver without ascit es (HCC) AB SPECIFICITY CLASS I Routine 01/16/2019 ESRD (e nd stage renal 3:56 PM BRIQUETTE MOLDER disease) (HCC) Pre-transplant evaluation for end stage renal disease ALPHA FETOPROTEIN (AFP), Routine 01/16/2019 Alcoh olic cirrhosis of TUMOR MARKER 3:56 PM BRIQUETTE MOLDER liver without ascit es (HCC) PROTHROMBIN TIME/INR Routine 01/16/2019 Alcoholic cirrhosis of 3:56 PM BRIQUETTE MOLDER liver without ascites (HCC) CBC W/PLT COUNT & AUTO Routine 01/16/2019 Alcohol ic cirrhosis of DIFFERENTIAL 3:56 PM BRIQUETTE MOLDER liver without ascit es (HCC) HEPATIC FUNCTION PANEL Routine 01/16/2019 Alcohol ic cirrhosis of 3:56 PM BRIQUETTE MOLDER liver without ascites (HCC) BASIC METABOLIC PANEL (7) Routine 01/16/2019 Alco holic cirrhosis of 3:56 PM BRIQUETTE MOLDER liver without ascites (HCC) FLOW PRA CLASS II WITH Routine 01/16/2019 ESRD (e nd stage renal REFLEX TO ANTIBODY 3:56 PM BRIQUETTE MOLDER disease) (HCC) SPECIFICITY Pre-transplant evaluation for end stage renal disease FLOW PRA CLASS I WITH Routine 01/16/2019 ESRD (en d stage renal REFLEX TO ANTIBODY 3:56 PM BRIQUETTE MOLDER disease) (HCC) SPECIFICITY Pre-transplant evaluation for end stage renal disease HLA TYPING CII Routine 01/16/2019 ESRD (end stage renal 3:56 PM BRIQUETTE MOLDER disease) (HCC) Pre-transplant evaluation for end stage renal disease HLA TYPING CI Routine 01/16/2019 ESRD (end stage renal 3:56 PM BRIQUETTE MOLDER disease) (HCC) Pre-transplant evaluation for end stage renal disease RHYTHM STRIP - SCAN 01/08/2019 9:10 AM BRIQUETTE MOLDER TRANSFUSION SERVICE 01/06/2019 REPORT - SCAN 5:50 PM BRIQUETTE MOLDER HEPATIC FUNCTION PANEL Routine 01/06/2019 6:01 AM BRIQUETTE MOLDER PROTHROMBIN TIME/INR Routine 01/06/2019 6:01 AM BRIQUETTE MOLDER MAGNESIUM Routine 01/06/2019 6:01 AM BRIQUETTE MOLDER BASIC METABOLIC PANEL (7) Routine 01/06/2019 6:01 AM BRIQUETTE MOLDER CBC (HEMOGRAM ONLY) Routine 01/06/2019 6:01 AM BRIQUETTE MOLDER MISCELLANEOUS LAB ORDER Routine 01/06/2019 6:01 AM BRIQUETTE MOLDER PREPARE LEUKO-REDUCED RBC Routine 01/05/2019 11:54 PM BRIQUETTE MOLDER TRANSFUSION SERVICE 01/05/2019 REPORT - SCAN 5:50 PM BRIQUETTE MOLDER PROTHROMBIN TIME/INR Routine 01/05/2019 4:30 AM BRIQUETTE MOLDER HEPATIC FUNCTION PANEL Routine 01/05/2019 4:30 AM BRIQUETTE MOLDER MAGNESIUM Routine 01/05/2019 4:30 AM BRIQUETTE MOLDER BASIC METABOLIC PANEL (7) Routine 01/05/2019 4:30 AM BRIQUETTE MOLDER CBC (HEMOGRAM ONLY) Routine 01/05/2019 4:30 AM BRIQUETTE MOLDER PREPARE LEUKO-REDUCED RBC STAT 01/04/2019 11:54 PM BRIQUETTE MOLDER TRANSFUSION SERVICE 01/04/2019 REPORT - SCAN 5:53 PM BRIQUETTE MOLDER DRUG SCREEN, URINE, Routine 01/04/2019 TRANSPLANT 5:39 PM BRIQUETTE MOLDER DRUG SCREEN, URINE, Routine 01/04/2019 COMPREHENSIVE 5:39 PM BRIQUETTE MOLDER TRANSFUSE LEUKO-REDUCED Routine 01/04/2019 RED BLOOD CELLS 2:09 PM BRIQUETTE MOLDER ETHANOL Routine 01/04/2019 9:42 AM BRIQUETTE MOLDER CBC W/PLT COUNT & AUTO Routine 01/04/2019 DIFFERENTIAL 4:07 AM BRIQUETTE MOLDER CBC W/PLT COUNT & AUTO Routine 01/04/2019 DIFFERENTIAL 4:07 AM BRIQUETTE MOLDER HEPATIC FUNCTION PANEL Routine 01/04/2019 4:07 AM BRIQUETTE MOLDER BASIC METABOLIC PANEL (7) Routine 01/04/2019 4:07 AM BRIQUETTE MOLDER TRANSFUSE LEUKO-REDUCED STAT 01/04/2019 RED BLOOD CELLS 1:55 AM BRIQUETTE MOLDER TYPE AND SCREEN, STAT 01/03/2019 AUTOMATED 9:56 PM BRIQUETTE MOLDER CBC W/PLT COUNT & AUTO STAT 01/03/2019 DIFFERENTIAL 9:54 PM BRIQUETTE MOLDER PT/APTT STAT 01/03/2019 9:54 PM BRIQUETTE MOLDER HEPATIC FUNCTION PANEL STAT 01/03/2019 9:54 PM BRIQUETTE MOLDER BASIC METABOLIC PANEL (7) STAT 01/03/2019 9:54 PM BRIQUETTE MOLDER CBC W/PLT COUNT & AUTO STAT 01/03/2019 DIFFERENTIAL 9:54 PM BRIQUETTE MOLDER REPORT OF PROCEDURE - 12/31/2018 ENDOSCOPY SCAN 12:52 PM BRIQUETTE MOLDER TRANSFUSION SERVICE 12/27/2018 REPORT - SCAN 6:02 [...] ms QTC Calculatio n(Bazett) 541 ms P Fate 40 degrees R Fate 30 degrees T Fate 14 degrees Normal sinus rhythm Prolonged QT Abnormal ECG When compared with ECG of 9 03:56, Nonspecifi c T wave abnormalit y no longer evident in Lateral leads ECG 12-LEAD STAT 12/21/2018 1:18 AM CDT CRITICAL CARE Routine 12/21/2018 1:10 AM CDT after 11/24/2018 Results * MR abdomen with/without IV contrast (05/23/2019 12:08 PM CDT) Specimen Narrative Performed At FINAL REPORT Parallocity MRI of the abdomen with and without [...] Report Verified Date/Time: 0 12:54:18 Reading Location: [address] [employer] Co nsult Reading Room Procedure Note Interface, [...] Report Verified Date/Time: 05/23/2019 12:54:18 Reading Location: [address] Ortho Consult Reading Room Performing Organization Address City/State/Zipcode Ph one Number GE RIS * CBC with platelet count + automated diff (05/23/2019 9:03 AM CDT) Only the most recent of 22 results within the time period is included. WBC 7.3 3.5 - 10.5 K/L [facility] RBC 2.33 (L) 4.63 - 6.08 M/L [facility] Hemoglobin 7.3 (L) 13.7 - 17.5 GM/DL [facility] Hematocrit 22.0 (L) 40.1 - 51.0 % [facility] MCV 94.4 (H) 79.0 - 92.2 fL [facility] MCH 31.3 25.7 - 32.2 pg [facility] MCHC 33.2 32.3 - 36.5 GM/DL [facility] RDW 18.6 (H) 11.6 - 14.4 % [facility] Platelets 94 (L) 150 - 450 K/CU MM [facility] MPV 8.4 (L) 9.4 - 12.4 fL [facility] nRBC 0 0 - 0 /100 WBC [facility] % Neutros 69 % [facility] % Lymphs 18 % [facility] % Monos 9 % [facility] % Eos 3 % [facility] % Baso 1 % [facility] # Neutros 5.03 1.78 - 5.38 K/L [facility] # Lymphs 1.31 (L) 1.32 - 3.57 K/L [facility] # Monos 0.62 0.30 - 0.82 K/L [facility] # Eos 0.23 0.04 - 0.54 K/L [facility] # Baso 0.06 0.01 - 0.08 K/L [facility] Immature 0 0 - 1 % [facility] Granulocytes-Relative [facility] Specimen Blood Performing Organization Address City/[facility]/Rustde Ph one Number [address] [facility] * Prothrombin time/INR (05/23/2019 9:03 AM CDT) Only the most recent of 10 results within the time period is included. Protime 16.6 (H) 11.9 - 14.2 seconds [facility] INR 1.4 <=5.9 [facility] Specimen Blood Narrative Performed At Effective 07/24/2018: PT Reference Range Change [facility] New: 11.9-14.2Previous: 11.7-14.7 [facility] MEDICAL CE NTER RECOMMENDED COUMADIN/WARFARIN INR THERA PY RANGES STANDARD DOSE: 2.0-3.0Includes: PRO PHYLAXIS for venous thrombosis, systemic embolization; TREATMENT for venous thro mbosis and/or pulmonary embolus. HIGH RISK: Target INR is 2.5-3.5 for pa tients wiht mechanical heart valves. Performing Organization Address City/[facility] Ph one Number [address] [facility] * Hepatic function panel (05/23/2019 9:03 AM CDT) Only the most recent of 11 results within the time period is included. Protein, Total 6.5 6.0 - 8.3 gm/dL [facility] Albumin 3.4 (L) 3.5 - 5.0 g/dL [facility] Total Bilirubin 5.4 (H) 0.2 - 1.2 mg/dL [facility] Bilirubin, Direct 2.6 (H) 0.1 - 0.5 mg/dL [facility] Alkaline Phosphatase 200 (H) 40 - 150 U/L [facility] AST 46 (H) 5 - 34 U/L [facility] ALT 12 6 - 55 U/L [facility] Specimen Blood Narrative Performed At Enamel Pulverizer ID - UMU [facility] Performing Organization Address [facility] Ph one Number [place] [address] [facility] * Basic Metabolic Panel (05/23/2019 9:03 AM CDT) Only the most recent of 16 results within the time period is included. Sodium 139 136 - 145 meq/L [facility] Potassium 3.3 (L) 3.5 - 5.1 meq/L [facility] Chloride 100 98 - 107 meq/L [facility] CO2 30 (H) 22 - 29 meq/L [facility] BUN 25 (H) 7 - 21 mg/dL [facility] Creatinine 2.87 (H) 0.57 - 1.25 mg/dL [facility] Glucose 112 (H) 70 - 105 mg/dL [facility] Calcium 8.5 8.4 - 10.2 mg/dL [facility] EGFR 25Comment: ESTIMATED GFR IS mL/min/1.73 sq m [facility] NOT ACCURATE CREATININE [facility] CLEARANCE IN PREDICTING GLOMERULAR FILTRATION RATE. ESTIMATED GFR IS NOT APPLICABLE FOR DIALYSIS PATIENTS. Specimen Blood Narrative Performed At Enamel Pulverizer ID - UMU [facility] Specimen moderately [facility] Performing Organization Address City/[facility]/Rust[employer] Ph one Number [facility] [address] [place], [place] [address] [facility] * RHYTHM STRIP - SCAN (05/15/2019 [...] is n ot available. Performing Organization Address City/[facility] Ph one Number [facility] [address] [place], [place] * Bilirubin, direct (05/14/2019 9:30 AM CDT) Only the most recent of 4 results within the time period is included. Bilirubin, Direct 2.0 (H) 0.1 - 0.5 mg/dL [facility] Specimen Blood Performing Organization Address City/[facility] Ph one Number [facility] [address] [place], [place] [address] [facility] * EKG-SCANNED (05/13/2019 11:03 AM CDT) [...] Phosphorus 3.4 2.3 - 4.7 mg/dL [facility] Specimen Blood Narrative Performed At Enamel Pulverizer YOLANDA Jang [facility] Performing Organization Address City/[facility] Ph one Number [facility] [address] [place], [place] [address] [facility] * Magnesium (05/10/2019 5:22 AM CDT) Only the most recent of 14 results within the time period is included. Magnesium 1.9 1.6 - 2.6 mg/dL [facility] Specimen Blood Narrative Performed At Enamel Pulverizer ID - ULYSSES Jang [facility] Performing Organization Address City/State/Zipcode Ph one Number [facility] [address] [place], [place] [address] [facility] * NM Myocardial Perfusion Pet/CT (Rest & Stress) (05/09/2019 2:55 PM CDT) Specimen Narrative Performed At FINAL REPORT Parallocity PROCEDURE: MYOCARDIAL PERFUSION PET HEAVENLY GING (Rest/Stress) CPT CODE: 14227 INDICATION: Assess symptoms/risk factor s of possible [...] Report Verified Date/Time: 0 16:05:35 Reading Location: [address] Flr P327B Nuc Med Reading Room Procedure Note Interface, External Ris In - 05/09/2019 4:07 PM CDT FINAL REPORT PROCEDURE: MYOCARDIAL PERFUSION PET IMAGING (Rest/Stress) CPT CODE: [id number] INDICATION: Assess symptoms/risk factors of possible CAD [...] Report Verified Date/Time: 05/09/2019 16:05:35 Reading Location: [facility] 3rd Flr [id number] Nuc Med Reading Room [...] on 05/15/2019 10:24:47 PM Performing Organization Address City/State/Rustde Ph one Number GE MUSE * Comprehensive metabolic panel (05/09/2019 5:35 AM CDT) Only the most recent of 8 results within the time period is included. Protein, Total 6.1Comment: Specimen slightly 6.0 - 8.3 gm/dL [facility] hemolyzed [facility] Albumin 2.9 (L)Comment: Specimen 3.5 - 5.0 g/dL [facility] slightly hemolyzed [facility] Alkaline Phosphatase 116 40 - 150 U/L [facility] Total Bilirubin 4.1 (H)Comment: Specimen 0.2 - 1.2 mg/dL [facility] slightly hemolyzed [facility] Sodium 131 (L) 136 - 145 meq/L [facility] Potassium 3.9Comment: Specimen slightly 3.5 - 5.1 meq/L [facility] Chloride 99 98 - 107 meq/L [facility] CO2 23 22 - 29 meq/L [facility] BUN 22 (H) 7 - 21 mg/dL [facility] Creatinine 4.22 (H)Comment: Specimen 0.57 - 1.25 mg/dL C [facility] slightly hemolyzed [facility] Glucose 108 (H) 70 - 105 mg/dL [facility] Calcium 8.1 (L) 8.4 - 10.2 mg/dL [facility] AST 30Comment: Specimen slightly 5 - 34 U/L [facility] ALT 8Comment: Specimen slightly 6 - 55 U/L [facility] EGFR 16Comment: ESTIMATED GFR IS mL/min/1.73 sq m [facility] NOT ACCURATE CREATININE [facility] CLEARANCE IN PREDICTING GLOMERULAR FILTRATION RATE. ESTIMATED GFR IS NOT APPLICABLE FOR DIALYSIS PATIENTS. Specimen Blood Narrative Performed At Enamel Pulverizer ID - ULYSSES M [facility] Specimen slightly icteric [facility] Performing Organization Address City/State/Zipcode Ph one Number [place] [address] [facility] * TRANSFUSION SERVICE REPORT - SCAN (05/08/2019 5:52 PM CDT) Only the most recent of 14 results within the time period is included. Narrative Performed At This result has an attachment that is n ot available. * Limited 2D Echocardiogram (05/08/2019 11:40 AM CDT) Ejection Fraction [facility] Specimen Narrative Performed At Transthoracic Echocardiography Report (TTE) [facility] Demographics [facility] Patient Name INDRA GALVAN Date of Study 05/08/2019 YAN CORDERO [id number] Gender Male Visit Number [id number] Unknown [id number] Room Number 6213 Number Date of Birth1980 [...] (>60%) . Left AtriumLA s ize is suvv-hg-uyuhllywhk enlarged . Right VentricleNormal r ight ventricle [...] 05/08/2019 YAN CORDERO Gender Male Visit Number [id number] Race Unknown Room Number 6213 Number Date of 1980 Referring Physician ROBBIE NEW Age 38 year(s) Second Officer Renny Yepez Press Offbearer Nick Navarro Interpreting Physician MELVA Jackson Procedure [...] (>60%) . Left Atrium LA size is iuyd-sf-wzwzsybtly enlarged . Right Ventricle Normal right ventricle [...] of Yasmin.: 3.23 cm Performing Organization Address [facility] one Number [facility] MKCKESSON CPACS * Procalcitonin (05/08/2019 3:02 AM CDT) Only the most recent of 3 results within the time period is included. Procalcitonin 3.64 (H) <0.05 ng/mL [facility] Specimen Blood Narrative Performed At SEPSIS RISK (ng/mL) [facility] Low:0.05-0.50 [facility] Intermediate: 0.51-2.00 High: >=2.01 Performing Organization Address [facility] one Number [place] [address] [facility] * Manual Differential (05/08/2019 3:02 AM CDT) Only the most recent of 3 results within the time period is included. % Neutros 74 % [facility] % Lymphs 12 % [facility] % Monos 9 % [facility] % Eos 2 % [facility] % Baso 3 % [facility] # Neutros 8.66 (H) 1.78 - 5.38 K/ul [facility] # Lymphs 1.40 1.32 - 3.57 K/ul [facility] # Monos 1.05 (H) 0.30 - 0.82 K/uL [facility] # Eos 0.23 0.04 - 0.54 K/uL [facility] # Baso 0.35 (H) 0.01 - 0.08 K/uL [facility] Total Counted 100 [facility] Platelet Morphology Normal [facility] Toxic Granulation Present [facility] Polychromasia 2+ moderate [facility] Hypochromia 1+ few [facility] Anisocytosis 1+ few [facility] Macrocytes 1+ few [facility] Poikilocytes 1+ few [facility] [place] Cells 1+ few [facility] Artifact Present [facility] Platelet Conc Adequate [facility] Specimen Blood Narrative Performed At Enamel Pulverizer ID - Ivonne Gray [facility] User comments: [facility] Slide comments: Performing Organization Address City/State/Zipcode Ph one Number [facility] [address] [place], [place] [address] [facility] * Prepare Leuko-Red RBC (05/07/2019 11:54 PM CDT) Only the most recent of 8 results within the time period is included. CROSSMATCH COMPATIBLE SAFETRACE TX Unit ABO B Pos [employer]AFET[employer]ACE TX UNIT NUMBER [id number] [facility] TX Status TX_TIMEINCHART [facility] TX Blood Bank Product RED BLOOD CELLS [employer] [place] PRODUCT CODE [id number] [facility] [place] Specimen Other Performing Organization Address City/State/Zipcode Ph one Number [place] * PERIPHERAL VASCULAR REPORT - SCAN (05/07/2019 9:12 PM CDT) Only the most recent of 2 results within the time period is included. Narrative Performed At This result has an attachment that is n ot available. * Body fluid culture + gram stain (05/07/2019 7:20 PM CDT) Result No growth [facility] Gram Stain Result 1+ White blood cells seen [facility] Gram Stain Result No organisms seen [facility] [facility] Specimen Body Fluid Performing Organization Address City/[facility] Ph one Number [address] [address] [facility] * Cytology (05/07/2019 7:20 PM CDT) Case Report Medical Cytology [facility] Report [facility] Case: [id number] Authorizing Provider:Robbie New MD Collected: 05/07/2019 1920 [address]ing [address]: 05/08/19 20 1445 Pathologist: Josh Yang MD Specimen:Pericardial DIAGNOSIS PERICARDIAL FLUID (CYTOSPINS): [facility] - NEGATIVE FOR [facility] Signing Pathologist Direct Phone Line: [phone] CPT Code(s) 54089 [facility] CLINICAL DATA Pericardial effusion, [facility] cirrhosis [facility] SPECIMEN SOURCE PERICARDIAL FLUID [facility] GROSS DESCRIPTION 600 mls bloody fluid; 4 [facility] cytospins [facility] Collected: [id number] Received: [id number] STATEMENT OF ADEQUACY Satisfactory [facility] Gross assessment was [facility] performed at Center, Department of [facility] TER Pathology, [address] [place] [address], [place] [address], Technical component was [facility] performed at [place], Department of [facility] MEDICAL JASWANT TER Pathology, [address] [place] [address], Professional component [facility] was performed at [place], Department of [facility] MEDICAL JASWANT TER Pathology, [address] [place] [address], Specimen Body Fluid Narrative Performed At This result has an attachment that is n ot available. Performing Organization Address City/State/Zipcode Ph one [address] [address] MEDICAL CENTER * 2D Echo W/Doppler(CW/PW/Color) (05/07/2019 6:32 PM CDT) Ejection Fraction [facility] ECHO HEARTLAB [facility] Specimen Narrative Performed At Transthoracic Echocardiography Report (TTE) [facility] ECH O HEARTLAB Demographics [facility] Patient Name INDRA GALVAN Date of Study05/07/2019 YAN CORDERO [id number] Gender Male Visit Number [id number] Unknown [id number] Room [id number] Number Date of Birth1980 Barron sanchez Age38 [...] 05/07/2019 YAN CORDERO Gender Male Visit Number [id number] Race Unknown Room Number 6213 Number Date of 1980 Referring Robbie New MD Physician Age 38 year(s) Second Officer Aneudy Jerez Interpreting Vic Caruso Physician Fellow [...] pericardial effusion is present. Performing Organization Address City/State/[facility] Ph one Number [facility] Art Circle [facility] * Carotid doppler bilateral (05/06/2019 4:05 PM CDT) Ejection Fraction [facility] Art Circle [facility] Specimen Impressions Performed At Right Impression [facility] 1. The internal carotid artery is within normal limit [facility] 2. The external carotid artery is [...] At LAB - Carotid Duplex Study [facility] HEARTLAB Demographics [facility] Patient Name INDRA GALVAN Date of Study05/06/2019 RUSS VEE JR. [id number] Age38 Visit Number [id number] Gender Male Accession Number [id number] Date of Birth1980 Merrill Acevedo ra Room [id number] PhysicianAGACNP SonographerGzay Maki RVS Interpreting Josh Meeks [...] 05/06/2019 YAN CORDERO Age 38 Visit Number [id number] Gender Male Accession Number [id number] Date of 1980 Referring Karen Carranza Room Number 6213 Physician SARAH Second Officer Cb Maki RVS Interpreting Karen Blackwell, Physician [...] Performing Organization Address City/State/Zipcode Ph one Number [facility] ECHO HEARTLAB [facility] * REPORT OF PROCEDURE - ENDOSCOPY URL (05/06/2019 1:43 PM CDT) Narrative Performed At This result has an attachment that is n ot available. * 2D Echo W/Doppler(CW/PW/Color) (05/06/2019 1:06 PM CDT) Ejection Fraction [facility] ECHO HEARTLAB [facility] Specimen Narrative Performed At Transthoracic Echocardiography Report (TTE) [facility] ECH O HEARTLAB Demographics 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) [facility] Press Offbearer Joanna Whitley Interpreting Pratik Rubin MD Procedure [...] 05/06/2019 YAN CORDERO Gender Male Visit Number [id number] Race Unknown Room Number 2454 Number Date of 1980 Referring Robbie New MD Physician Age 38 year(s) Second Officer Aneudy Jerez Press Offbearer Joanna Whitley Interpreting Pratik Alexis MD Procedure [...] TR Gradient: 30.26 mmHg Performing Organization Address [facility] one Number [facility] E[facility] HEARTLAB [facility] * Transfuse Leuko-Red RBC (05/06/2019 3:24 AM CDT) Only the most recent of 18 results within the time period is included. * Troponin I (05/05/2019 9:09 PM CDT) Only the most recent of 3 results within the time period is included. Troponin I <0.01 0.00 - 0.03 ng/mL [facility] Specimen Blood Narrative Performed At Troponin I (TnI) levels must be interpreted in the co ntext of the presenting [facility] symptoms and the clinical findings. Elevated TnI leve ls indicate myocardial [facility] damage, but are not specific for ischem ic heart disease. Elevated TnI levels are seen in patients with other cardiac con ditions (including myocarditis and congestive heart failure), and slight T nI elevations occur in patients with other conditions, including sepsis, tay al failure, acidosis, acute neurological disease, and persistent tachyarrhythmia . Enamel Pulverizer ID - BS Performing Organization Address [facility] one Number [place] [address] MEDICAL CENTER * ECG 12 lead (05/05/2019 8:53 PM CDT) Only the most recent of 5 results within the time period is included. Specimen Narrative Performed At Ventricular Rate 128 BPM adBrite MUSE Atrial Rate 89 BPM QRS Duration 94 ms Q-T Interval 336 ms QTC Calculation(Bazett) 490 ms R Fate 151 degrees T Fate -88 degrees Atrial fibrillation Left posterior fascicular [...] 336 ms QTC Calculation(Bazett) 490 ms R Fate 151 degrees T Fate -88 degrees Atrial fibrillation Left posterior fascicular [...] leads Confirmed by MD YORK JOSEPH P ([id number]) on 05/06/2019 6:34:11 AM Performing Organization Address [facility] one Number GE MUSE * Hepatitis B surface antigen (05/05/2019 3:02 PM CDT) Only the most recent of 2 results within the time period is included. HBsAg Screen Nonreactive Nonreactive [facility] Specimen Blood Narrative Performed At Enamel Pulverizer ID - BS [facility] Performing Organization Address [facility] one [address] 0 [phone] [place] [address] * Occult blood, stool (05/05/2019 12:07 PM CDT) Occult blood Negative Negative [facility] Specimen Stool Performing Organization Address [facility] one [address] [facility] * ABORH, manual (05/05/2019 9:51 AM CDT) ABO Grouping B [facility] Rh Factor POS [facility] Specimen Blood Performing Organization Address [facility] Ph one [address] [address] [facility] * Iron, TIBC, % sat. (without ferritin) (05/05/2019 9:51 AM CDT) Only the most recent of 2 results within the time period is included. Iron 88.0 40.0 - 160.0 ug/dL [facility] TIBC 130 (L) 250 - 450 ug/dL [facility] Iron % Saturation 68 (H) 20 - 55 % [facility] Specimen Blood Narrative Performed At Enamel Pulverizer ID - PIAYA L [facility] Performing Organization Address City/[facility] Ph one [address] [address] [facility] * Reticulocyte count (05/05/2019 9:51 AM CDT) % Retic 2.3 (H) 0.5 - 1.8 % [facility] Specimen Blood Narrative Performed At Enamel Pulverizer ID - [id number] [facility] Performing Organization Address [facility] Ph one [address] 7[address] [facility] * Direct AHG (LUMA)/Direct Antonia (05/05/2019 9:51 AM CDT) Direct AHG-IGG NEGATIVE [facility] Direct AHG-C3B, C3D NEGATVIE [facility] Specimen Blood Performing Organization Address City/[facility] Ph one [address] [address] [facility] * Ferritin (05/05/2019 9:51 AM CDT) Only the most recent of 2 results within the time period is included. Ferritin 1,081 (H) 5 - 275 ng/mL [facility] Specimen Blood Narrative Performed At Enamel Pulverizer ID - AAHAMID [facility] Performing Organization Address City/[facility] Ph one [address], [place] [address] [phone] [place] [address] * Lactic acid, venous (05/05/2019 12:29 AM CDT) Only the most recent of 3 results within the time period is included. Lactate, Venous 2.6 (H) 0.5 - 2.2 mmol/L [facility] Specimen Blood Narrative Performed At Enamel Pulverizer ID - PIAYA L [facility] Specimen slightly icteric [facility] Performing Organization Address [facility] Ph one Number [address] 0 [phone] [place] [address] * Type and screen, automated ([facility] and CECs only) (05/04/2019 8:42 PM CDT) Only the most recent of 5 results within the time period is included. ABO/RH AUTOMATED (BEAKER) B POSITIVE [facility] Ab Scrn NEGATIVE [facility] Specimen Blood Performing Organization Address [facility] Ph one Number [address] [address] [phone] [facility] * Urinalysis w/Microscopic + Reflex to Culture (05/04/2019 7:53 PM CDT) Color, UA Yellow [facility] Clarity, UA Hazy [facility] Specific [place], UA 1.011 1.001 - 1.035 [facility] pH, UA 5.5 5.0 - 8.0 [facility] Protein, UA 100 mg/dL (A) Negative [facility] Glucose, UA 100 mg/dL (A) Negative [facility] Ketones, UA Negative Negative [facility] Bilirubin, UA Negative Negative [facility] Blood, UA Negative Negative [facility] Nitrite, UA Negative Negative [facility] Leukocytes, UA Negative Negative [facility] Urobilinogen, UA 0.2 0.2 - 1.0 mg/dL [facility] RBC, UA 7 /HPF [facility] WBC, UA 12 /HPF [facility] Bacteria, UA Occasional [facility] Mucus Rare [facility] Squam Epithel, UA 18 /HPF [facility] Hyaline Casts, UA 78 /LPF [facility] Casts 70 /LPF [facility] Crystals, Urine Occasional [facility] Yeast Moderate [facility] Specimen Source [facility] Specimen Urine Narrative Performed At Enamel Pulverizer ID - [auto] [facility] Enamel Pulverizer ID - tech [facility] Performing Organization Address [facility] Ph one Number [place] [address] [phone] [place] [address] * Strep pneumoniae antigen (05/04/2019 7:53 PM CDT) Strep pneumoniae Antigen Presumptive negative for Presumptive negative for [facility] pneumococcal pneumonia - see pneumococcal pneumonia - [facility] comment see comment, Presumptive negative for pneumococcal meningitis - see comment Specimen Urine Narrative Performed At Presumptive negative for pneumococcal p neumonia, suggesting no current or recent [facility] pneumococcal infection. Infection due t o S. pneumoniae cannot be ruled out since [facility] the antigen present in the sample may b e below the detection limit of the test. Performing Organization Address City/[facility] Ph one Number [place] [address] [facility] * Legionella antigen, urine (05/04/2019 7:53 PM CDT) Legionella Urine Antigen Negative - see commentComment: [facility] Negative for L. pneumophila [facility] serogroup 1 antigen, suggesting no recent or current infection with this serogroup. Legionellosis cannot be ruled out since other serogroups and species may cause disease. Specimen Urine Performing Organization Address [facility] one Number [place] [address] [facility] * Urine culture (05/04/2019 7:53 PM CDT) Result <10,000 col/mL skin chase [facility] Specimen Urine Performing Organization Address [facility] one Number [place] [address] [facility] * PT/aPTT (05/04/2019 7:29 PM CDT) Only the most recent of 3 results within the time period is included. Protime 18.9 (H) 11.9 - 14.2 seconds [facility] INR 1.6 <=5.9 [facility] PTT 40.7 (H) 22.5 - 36.0 seconds [facility] Specimen Blood Narrative Performed At Effective 07/24/2018: PT Reference Range Change [facility] New: 11.9-14.2Previous: 11.7-14.7 [facility] MEDICAL CE NTER RECOMMENDED COUMADIN/WARFARIN INR THERA PY RANGES STANDARD DOSE: 2.0-3.0Includes: PRO PHYLAXIS for venous thrombosis, systemic embolization; TREATMENT for venous thro mbosis and/or pulmonary embolus. HIGH RISK: Target INR is 2.5-3.5 for pa tients wiht mechanical heart valves. Performing Organization Address [facility] one Number [address] [address] [facility] * Blood Culture - Routine (Left Venipuncture) (05/04/2019 7:29 PM CDT) Only the most recent of 6 results within the time period is included. Result No growth in 5 days [facility] Specimen Blood Performing Organization Address [facility] one Number [place] [address] [address] [phone] [address] * B-type Natriuretic Factor (BNP) (05/04/2019 7:29 PM CDT) BNP 612 (H) 0 - 100 pg/mL [facility] H [facility] Specimen Blood Narrative Performed At Enamel Pulverizer ID - DB [facility] Performing Organization Address [facility] Ph one [place] [phone] * Rapid Influenza A&B Screen (05/04/2019 7:28 PM CDT) Rapid Influenza A Antigen Negative Negative, Inconclusi ve [facility] Rapid influenza B Antigen Negative Negative, Inconclusi ve [facility] Specimen Nasal Performing Organization Address [facility] one [place] [address] [address] [phone] [address] * CRITICAL CARE (05/04/2019 6:47 PM [...] included. Specimen Narrative Performed At FINAL REPORT [facility] EXAM: Chest one view COMPARISON: December 22, 2018 Clinical history: Weakness FINDINGS: There is persistent cardiomeg daniel. There is interval improvement in pulmonary edema. The rig ht internal jugular chest tunneled dialysis catheter appears unch anged in position. The regional osseous structures are unremar kable Signed: Victorino Haines MD Report Verified Date/Time: 0 18:08:08 Reading Location: [facility] C013 Transiti onal Reading Room Procedure Note [...] Report Verified Date/Time: 05/04/2019 18:08:08 Reading Location: [address] Transitional Reading Room Performing Organization Address City/State/Zipcode Ph one Number [facility] * US pelvis with doppler (02/03/2019 9:35 AM BRIQUETTE MOLDER) Specimen Narrative Performed At FINAL REPORT [facility] Pelvic ultrasound dated 02/03/2019. COMMENT: Real-time transpelvic [...] iliac artery measures 1.0 cm. The left phd internship al iliac artery is not visualized. The bilateral common and external iliac veins are patent. IMPRESSION: Unremarkable pelvic vascula ture. Signed: Keith Garcia MD Report Verified Date/Time: 11:35:01 Reading Location: [address] Radiolo gy Reading Room Procedure Note Interface, External Ris In - 02/03/2019 11:37 AM BRIQUETTE MOLDER FINAL REPORT Pelvic ultrasound dated 02/03/2019. COMMENT: [...] Report Verified Date/Time: 02/03/2019 11:35:01 Reading Location: [address] Radiology Reading Room Performing Organization Address [facility] one Number RIS * Vitamin B12 and Folate (01/18/2019 5:47 PM BRIQUETTE MOLDER) Vitamin B12 1,988 (H) 213 - 816 pg/mL [facility] Folate 17.8 >=7.0 ng/mL [facility] Specimen Blood Performing Organization Address [facility] Ph one Number [address] [address] MEDICAL CENTER * Lactate dehydrogenase (LDH) (01/18/2019 5:47 PM BRIQUETTE MOLDER) Only the most recent of 2 results within the time period is included. LDH 192 125 - 220 U/L [facility] Specimen Blood Performing Organization Address [facility] Ph one Number [address] [facility] * Haptoglobin (01/18/2019 5:47 PM BRIQUETTE MOLDER) Only the most recent of 2 results within the time period is included. Haptoglobin 14 14 - 258 mg/dL [facility] Specimen Blood Performing Organization Address [facility] Ph one Number [place] [address] [facility] * Hemoglobin and hematocrit (01/18/2019 11:17 AM BRIQUETTE MOLDER) Only the most recent of 2 results within the time period is included. Hemoglobin 7.5 (L) 13.7 - 17.5 GM/DL [facility] Hematocrit 23.0 (L) 40.1 - 51.0 % [facility] Specimen Blood Performing Organization Address [facility] one Number [place] [address] [address] [phone] [place] [address] * CBC (Hemogram only) (01/18/2019 2:51 AM BRIQUETTE MOLDER) Only the most recent of 5 results within the time period is included. WBC 6.6 3.5 - 10.5 K/L [facility] RBC 2.11 (L) 4.63 - 6.08 M/L [facility] Hemoglobin 6.7 (L) 13.7 - 17.5 GM/DL [facility] Hematocrit 20.2 (L) 40.1 - 51.0 % [facility] MCV 95.7 (H) 79.0 - 92.2 fL [facility] MCH 31.8 25.7 - 32.2 pg [facility] MCHC 33.2 32.3 - 36.5 GM/DL [facility] RDW 17.3 (H) 11.6 - 14.4 % [facility] Platelets 74 (L) 150 - 450 K/CU MM [facility] MPV 10.1 9.4 - 12.4 fL [facility] nRBC 0 0 - 0 /100 WBC [facility] Specimen Blood Performing Organization Address City/[facility] Ph one Number [facility] [address] [place], [place] [address] [facility] * HLA TYPING CII (01/16/2019 3:56 PM BRIQUETTE MOLDER) HLA-DR AG1 15 [facility] HLA TESTING HLA-DR AG2 4 [facility] HLA TESTING HLA-DR AG4-2 53 [facility] TEST[facility] HLA-DR AG5-1 51 [facility] HLA TESTING HLA-DQA1 AG 1-1 01 [facility] HLA TESTING HLA-DQA1 AG 1-2 03 [facility] HLA TESTING HLA-DQB1 AG 1-1 6 [facility] HLA TESTING HLA-DQB1 AG 1-2 8 [facility] HLA TESTING HLA-DPA1 AG 1-1 01 [facility] HLA TESTING HLA-DPA1 AG 1-2 01 [facility] TEST[facility] HLA-DPB1 AG 1-1 02:01 [facility] TEST[facility] HLA-DPB1 AG 1-2 04:02 [facility] HLA TEST[facility] Specimen Blood Narrative Performed At Disclaimer: [facility] HLA TESTING This test was developed and its perform ance characteristics determined by the [facility] Laboratory. It has not been [...] complexity clinical laboratory testing. Performing Organization Address City/[facility] Ph one Number [facility] HLA TESTING [address], [place]: [id number], [place] [address] CLIA#[id number] CAP#[id number] UNOS#[id number] * HLA TYPING CI (01/16/2019 3:56 PM BRIQUETTE MOLDER) HLA-A AG1 3 [facility] HLA TEST[facility] HLA-A AG2 68 [facility] HLA TEST[facility] HLA-B AG1 7 [facility] HLA TESTING HLA-B AG2 35 [facility] HLA TESTING HLA-C AG1 7 [facility] HLA TESTING HLA-C AG2 7 [facility] HLA TESTING HLA-B BW1 6 [facility] HLA TESTING HLA-B BW2 6 [facility] HLA TEST[facility] Specimen Blood Narrative Performed At Disclaimer: [facility] HLA TESTING This test was developed and its perform ance characteristics determined by the [facility] Laboratory. It has not been [...] complexity clinical laboratory testing. Performing Organization Address [facility] one Number [facility] HLA TEST[facility] ONE [address] [address], [place]: [id number], [place] [address] CLIA#[id number] CAP#[id number] UNOS#[id number] * FLOW PRA CLASS II WITH REFLEX TO ANTIBODY SPECIFICITY (01/16/2019 3:56 PM BRIQUETTE MOLDER) Flow Class II Percent 0 [facility] HLA TESTI NG Positive Specimen Blood Narrative Performed At Disclaimer: [facility] HLA TEST[facility] This test was developed and its perform ance characteristics determined by the [facility] Laboratory. It has not been [...] complexity clinical laboratory testing. Performing Organization Address [facility] one Number [facility] Gregorio Pedroza, MS: [id number], [place] [address] CLIA#[id number] CAP#[id number] UNOS#[id number] * FLOW PRA CLASS I WITH REFLEX TO ANTIBODY SPECIFICITY (01/16/2019 3:56 PM BRIQUETTE MOLDER) Flow Class I Percent 20 [facility] G Positive Specimen Blood Narrative Performed At Disclaimer: [facility] This test was developed and its perform ance characteristics determined by the [facility] Laboratory. It has not been [...] complexity clinical laboratory testing. Performing Organization Address [facility] one Number [facility] ONE Gregorio Pedroza, MS: [id number], [place] [id number] CLIA#[id number] CAP#[id number] UNOS#[id number] * AB SPECIFICITY CLASS I (01/16/2019 3:56 PM BRIQUETTE MOLDER) AB Specificity Class I NO CLASS I ANTIBODY DETECTED [facility] WITH MFIs > 4000 Specimen Blood Narrative Performed At Disclaimer: [facility] This test was developed and its perform ance characteristics determined by the [facility] Laboratory. It has not been [...] complexity clinical laboratory testing. Performing Organization Address [facility] one Number [facility] ONE Gregorio Pedroza, MS: [id number], [place] [address] CLIA#[id number] CAP#[id number] UNOS#[id number] * Alpha fetoprotein (AFP), tumor marker (01/16/2019 3:56 PM BRIQUETTE MOLDER) Alpha-Fetoprotein 2.7 <10.0 ng/mL [facility] Specimen Blood Performing Organization Address [facility] one Number [place] [id number] [place], [place] [address] [facility] * Drug screen, urine, transplant (01/04/2019 5:39 PM BRIQUETTE MOLDER) Specimen Urine Narrative Performed At This result has an attachment that is n ot available. Performing Organization Address [facility] one Number [facility] [address] [place], [place] [phone] * Drug screen, urine, comprehensive (01/04/2019 5:39 PM BRIQUETTE MOLDER) Specimen Urine Narrative Performed At This result has an attachment that is n ot available. * Ethanol (01/04/2019 9:42 AM BRIQUETTE MOLDER) Ethanol Lvl <10 <=10 mg/dL [facility] Specimen Blood Performing Organization Address [place]/[facility] one Number [facility] [address] [place], [place] [address] [facility] * Vancomycin level, random (12/26/2018 3:56 AM CDT) Only the most recent of 2 results within the time period is included. Vancomycin Rm 16.4 ug/mL [facility] Specimen Blood Narrative Performed At Reference Range: No Normals [facility] Performing Organization Address [facility] Ph one Number [facility] [address] [place], [place] [address] [facility] * Venous doppler legs bilateral (12/24/2018 6:55 PM CDT) Ejection Fraction [facility] MKCKESSON CPACS Specimen Impressions Performed At Right Impression [facility] 1. There is no deep [...] PV LAB - Lower Extremities DVT Study [facility] Demographics [facility] Patient Name INDRA GALVAN Date of Study12/24/2018 RUSS VEE JR. [id number] Visit Number [id number] Gender Male Accession Number [id number] Date of Birth1980 [place] Naranjo [id number] Physician SonographDagoberto Maki RVS Interpreting Josh Meeks [...] 12/24/2018 YAN CORDERO Age 38 Visit Number [id number] Gender Male Accession Number [id number] Date of 1980 Referring Audie Hoyt MD Room Number 7604 Physician Second Officer Cb Maki RVS Interpreting Karen Blackwell Physician [...] CDT) Specimen Narrative Performed At FINAL REPORT [facility] CT right lower extremity. CLINICAL HISTORY: Knee trauma, tenderne ss or effusion, initial exam (Age > 1y) TECHNIQUE: Contiguous axial images of t he right lower extremity without contrast with coronal and sagit chely reformations. This exam was performed according to the [facility] nta dose optimization program which includes automated [...] Verified Date/Time: 12/23/2018 03:00:15 Performing Organization Address [facility] Ph one Number GE RIS * Vancomycin level, trough (12/22/2018 4:26 PM CDT) Vancomycin Tr 40.3 (HH) 10.0 - 20.0 ug/mL [facility] Specimen Blood Performing Organization Address City/[facility] one Number [place] [address] [facility] * Fibrinogen (12/22/2018 3:55 AM CDT) Fibrinogen 195 (L) 225 - 434 mg/dl [facility] Specimen Blood Performing Organization Address [facility] Ph one Number [facility] [address] [place], [place] [address] [facility] * POC-Lactic Acid, Venous (12/21/2018 4:01 AM CDT) Only the most recent of 2 results within the time period is included. POC-Lactic Acid, Venous 1.6Comment: TESTED AT [facility] 0.9 - 1.7 mmol/L [address] [address] [facility] Specimen Blood Performing Organization Address [facility] Ph one Number [address] [facility] * Ammonia (12/21/2018 2:48 AM CDT) Ammonia 65 18 - 72 mol/L [facility] Specimen Blood Performing Organization Address [facility] Ph one Number [phone] [place] [address] * XR knee complete 4 views right [...] SHIELD [employer] PPO xxxxxxxxxxxx PPO [address] [place] [address] CHOICE [phone] [address] [address] amily (Home) [place] [address] Advance Directives For more information, please contact: [facility] [address] [place] [address] Date Inactivated Comments Code Status [...]
--- OUTSIDE RECORDS SUMMARY | 2019-11-25 23:38 | XMS REPORT | Continuity of Care Document ---
Author Author [facility] t Organization [facility] t Address [address] [place] [address] Phone Unavailable Care Team Providers Care Slitter And Rewinder Machine Operator Name Role Phone VOSSMARYGIANA Brush PCP Kenisha CUEVAS Attphys Unavailable Anastacio Killian Attphys Unavailable Anaya MURPHY, Kin Radford Attphys Unavailable Jose Alejandro STRINGED INSTRUMENT ASSEMBLER, Michael Attphys Unavailable JENNYFER PARKER Attphys Unavailable KHLOE BOX Attphys Unavailable Carlos A FRYE MPH, Laura Merchant Attphys [phone] Dorothy Boss Attphys Unavailable Elton SMITH, Katie Attphys Unavailable Laura Schwartz Attphys Unavailable Tim MURPHY, Bailey Mccartney Attphys Unavailable Steven STRINGED INSTRUMENT ASSEMBLER, Laine Carreon Attphys Unavailable George RN, Emily Attphys Unavailable Mabel MURPHY, Nay Attphys Unavailable Sanjana De Leon MD Attphys Grzegorz FRYE, Danii Shepard Attphys DANII LANTIGUA Attphys Unavailable Sea SMITH, Abby Attphys Unavailable Marissa Mixon Attphys Unavailable Ady MURPHY, Katie Attphys Unavailable Silvano MURPHY, Delores Attphys Unavailable Anthony NEWCOMER HOSTESS, Spring Abel Attphys Kenisha Gordillo Attphys Unavailable Darvin WICK, Charmaine Howe Attphys Lj FRYE, Iman Geronimo Attphys Malou FRYE, Erin Mir Attphys Elsie FRYE, Robina Cummins Attphys [phone] LelealejandroGelaConnie Attphys Unavailable Eduardo FRYE, Robbie Attphys Dea FRYE, Karey Mcmahan Attphys Sheikh MELVA, Melisa Lamb Attphys Ede RN, Radha Attphys Unavailable IMAN CALHONU Attphys Unavailable Juan Antonio RN, Servando Attphys Unavailable Alvarez RN, Kaneshia Attphys Unavailable Jere RN, Martha Attphys Unavailable Gracie Maldonado MDine Attphys Laura Emery Attphys Unavailable Gracie MALDONADO ROSAMARIA Attphys Unavailable System, Not In Provider Attphys Unavailable Jaime FRYE, Hiwot Tinoco Attphys Corine FRYE, Melisa Belcher Attphys Eliceo FRYE, Lorna Rayo Attphys Hiwot JOHNSON Attphys Unavailable Kendal FRYE, Valeriy Campohish Attphys [phone] OZIEL VALDEZ Attphys Unavailable José Miguel FRYE, Oziel Christie Attphys [phone] Reggie FRYE, Yasmin Fermin Attphys Kenisha Rojas Attphys Unavailable VENTURA BREEN Attphys Unavailable Julia FRYE, Ventura Renee Attphys Brandon FRYE, Zeonn Kaufman Attphys [phone] Evelina FRYE, Audie Attphys Caden FRYE, Melisa Attphys Hemalatha Alfredo Attphys Unavailable BRANDON, ZENON KAUFMAN Attphys Unavailable DUNIA, S MARYLU Attphys Unavailable MANINDRA LLOYD Attphys Unavailable BOCCARDO, KIET Attphys Unavailable JENNYFER PARKER Admphys Unavailable KHLOE BOX Admphys Unavailable MEADOWS, ERIN MIR Admphys Unavailable LORNA NORTON Admphys Unavailable Yasmin PAREDES Admphys Unavailable MELISA RAE Admphys Unavailable BRANDON, ZENON KAUFMAN Admphys Unavailable MANKIDY, INDRA THOMPSONITH Admphys Unavailable BOCCARDO, KIET Admphys Unavailable Payers Payer Name Policy Type Policy Number Effective Date Expiration Date Anton meneses BLUE CROSS/BLUE SHIELDBCBS PPO POS EPO C [id number] [id number], [place] [address] xxxxxxxxxxxx [facility] Blue Cross [facility] Ppo [id number] 2018 00:00:00 [facility] Cdc Review Covid19 [id number] [facility] Problems Condition Name Condition Details Condition Category Status Onset Date Resolution Date Last Treatment Date Treating Clinician Comments Source Sepsis Sepsis Disease Active 2019-05-04 00:00:00 [facility] Symptomatic anemia Symptomatic anemia Disease Active 2019-01-17 00:00:0 0 [facility] Tubular adenoma Tubular adenoma Disease Active 2019-01-17 00:00:00 [facility] Rash Rash Disease Active 2019-01-17 00:00:00 [facility] Screening for cancer Screening for cancer Disease Active 00:00:00 [facility] Alcohol use disorder, mild, abuse Alcohol use disorder, mild, ab use Disease Active 2019-01-17 00:00:00 [facility] Pedal edema Pedal edema Disease Active 2019-01-17 00:00:00 [facility] Hepatic encephalopathy Hepatic encephalopathy Disease Active 2019-01-17 00:00:00 [facility] Alcoholic hepatitis Alcoholic hepatitis Disease Active 2019-01-17 00:00 :00 [facility] Alcoholic cirrhosis Alcoholic cirrhosis Disease Active 2018-12-21 00:00 :00 [facility] Sepsis, unspecified organism Sepsis, unspecified organism Disease Active 2018-12-21 00:00:00 [facility] ESRD (end stage renal disease) ESRD (end stage renal disease) Disea se Active 2018-12-21 00:00:00 [facility] Liver failure Liver failure Disease Active 2018-10-16 00:00:00 [facility] Acute blood loss anemia Acute blood loss anemia Disease Active 2018-06-26 00:00:00 [facility] GIB (gastrointestinal bleeding) GIB (gastrointestinal bleeding) Dis ease Active 2018-06-21 00:00:00 [facility] Hemorrhagic shock Hemorrhagic shock Disease Active 2018-06-21 00:00:00 [facility] Hyperbilirubinemia Hyperbilirubinemia Disease Active 2018-06-01 00:00:0 0 [facility] Sinus tachycardia Sinus tachycardia Disease Active 2018-01-28 00:00:00 [facility] Prediabetes Prediabetes Disease Active 2018-01-28 00:00:00 [facility] Jaundice Jaundice Problem Active [facility] Pneumonia Pneumonia Problem Active [facility] Hepatic cirrhosis Problem Active [facility] Hypovolemic shock Problem Active [facility] Obesity Obesity Disease Active [facility] Fatty liver Fatty liver Disease Active [facility] Dark emesis Dark emesis Disease Active [facility] Hypotension due to hypovolemia Hypotension due to hypovolemia Disease Active [facility] Acute renal failure with tubular necrosis Acute renal failure with tubular necrosis Disease Active [facility] ESRD (end stage renal disease) on dialysis ESRD (end s tage renal disease) on dialysis Disease Active [facility] ESRD on hemodialysis ESRD on hemodialysis Disease Active [facility] History of Past Illness Condition Name Condition Details Condition Category Status Onset Date Resolution Date Last Treatment Date Treating Clinician Comments Source Respiratory center failure Respiratory center failure Disease Resolved 2018-06-01 00:00:00 2018-12-23 00:00:00 2018-12-23 18:37:49 [facility] Acute respiratory failure with hypoxia Acute respiratory ericka lure with hypoxia Disease Resolved 2018-06-01 00:00:00 2018-12-23 00:00:00 2018-12-23 18:37:3 7 [facility] ARDS (adult respiratory distress syndrome) ARDS (adult respiratory distress syndrome) Disease Resolved 2018-06-01 00:00:00 2018-12-23 00:00:00 2 18:37:31 [facility] Acute kidney injury Acute kidney injury Disease Resolved 2018-05 00:00:00 2018-12-23 00:00:00 2018-12-23 18:37:33 [facility] Hyponatremia Hyponatremia Disease Resolved 2018-06-01 00:00:00 2 00:00:00 2018-12-23 18:37:52 [facility] Hypertension Hypertension Disease Resolved 2018-12-23 00: 00:00 2018-12-23 18:37:55 [facility] Allergies, Adverse Reactions, Alerts Allergy Name Allergy Type Status Severity Reaction(s) Onset Date Inacti ve Date Treating Clinician Comments Source Prednisone Drug Intolerance Active 2019-05-04 00:00:00 [facility] Ceftriaxone Drug Allergy Active Rash 2019-01-06 00:00:00 [facility] Family History Family Member Diagnosis Comments Start Date Stop Date Source Natural brother No Known Problem [facility] Natural father Hypertension [facility] Natural mother Hypertension [facility] Natural son No Known Problem [facility] Social History Social Habit Start Date Stop Date Quantity Comments Source Sex Assigned At [facility] Alcohol Comment 2019-02-04 00:00:00 2019-02-04 00:00:00 quit in 9 [facility] Alcohol intake 2018-01-25 00:00:00 2018-01-25 00:00:00 Current drinker of alcohol (finding) [facility] Smoking Status Start Date Stop Date Source Never smoker [facility] Medications Ordered Medication Name Filled Medication Name Start Date Stop Da te Current Medication? Ordering Clinician Indication Dosage Frequency Signature (SIG) Comments Components Source Cholestyramine (Cholestyramine Light Packet) 4 Gm PACK Cholestyramine (Cholestyramine Light Packet) 4 Gm PACK 2019-11-06 18:18:00 Yes 4 Every 6 Hours [facility] Lactulose Lactulose 2019-11-06 18:18:00 Yes [address] [facility] Rifaximin (Xifaxan) 550 Mg TABLET Rifaximin (Xifaxan) 550 Mg TABLET 2019-11-06 18:18:00 Yes [address] [facility] Sodium Bicarbonate Sodium Bicarbonate 2019-11-06 18:18:00 Yes 1300 Twice A Day [facility] Vancomycin Hcl (Vancocin Hcl) 250 Mg CAPSULE Vancomyci n Hcl (Vancocin Hcl) 250 Mg CAPSULE 2019-11-06 18:18:[address] [facility] Prednisone Prednisone 2019-10-21 10:46:[address] [facility] Propranolol Hcl Propranolol Hcl 2019-10-21 10:46:00 Yes 10 Twice A Day [facility] Sucralfate (Carafate) 1 Gm TABLET Sucralfate (Carafate) 1 Gm TABLET 2019-10-21 10:46:00 Yes 1 Before Meals And At Bedtime [facility] Pantoprazole Sodium (Protonix) 40 Mg TABLET. Pantopr azole Sodium (Protonix) 40 Mg TABLET. 2019-09-27 10:11:00 Yes [address] [facility] traZODone (DESYREL) 50 MG tablet 2019-06-17 10:52:35 Yes 50mg QD Take 50 mg by mouth nightly. [facility] furosemide (LASIX) 10 mg/mL solution 2019-05-13 12:01:00 Ye s QD Take by mouth daily. [facility] colchicine (COLCRYS) 0.6 mg tablet 2019-05-11 00:00:00 202 23:59:00 No .6mg QD Take 1 tablet (0.6 mg total) by mouth da gunner for 11 days. [facility] FUROSEMIDE ORAL 2019-05-10 14:52:11 2019-05-10 00:00:00 No 80mg QD Take 80 mg by mouth daily . [facility] pantoprazole (PROTONIX) 40 MG tablet 2019-05-10 00:00:00 Ye s 40mg Q.5D Take 1 tablet (40 mg total) by mouth 2 (two) times daily. [facility] UNKNOWN 2019-02-04 09:37:27 2019-02-04 00:00:00 No QD daily Pt states he takes a medication to suppress his alcohol cravings . [facility] UNKNOWN 2019-02-04 09:37:25 2019-02-04 00:00:00 No naus ea as needed Pt takes dissolving tablet for nausea, unsure of name . [facility] thiamine 100 MG tablet 2019-02-04 00:00:00 Yes Portal hypertension (HCC) 100mg QD Take 1 tablet (100 mg total) by mouth daily. [facility] hydrOXYzine (ATARAX) 25 MG tablet 2019-01-16 00:00:00 2018 23:59:00 No Pruritus 25mg Take 1 tablet (2 5 mg total) by mouth every 6 (six) hours as needed for Itching for up to 30 days. [facility] traMADol (ULTRAM) 50 mg tablet 2019-01-06 00:00:00 Yes TK 1 T PO Q 8 H PRN P [facility] diphenhydrAMINE-zinc acetate (BENADRYL EXTRA STRENGTH) 2-0.1 % cream 2019-01-06 00:00:00 2020-01-06 23:59:00 No Apply topically 3 (three) times daily as needed for Itching. [facility] thiamine 100 MG tablet 2018-12-27 00:00:00 2019-02-04 00:00:00 N o 100mg QD Take 1 tablet (100 mg total) by mouth daily. [facility] traZODone (DESYREL) 50 MG tablet 2018-12-26 09:59:23 2018-11 00:00:00 No 50mg QD Take 50 mg by mouth nightly. [facility] midodrine (PROAMATINE) 10 MG tablet 2018-12-26 09:59:2 3 2018-12-26 00:00:00 No 10mg Q.[id number] Take 10 mg by mouth 3 (th ree) times daily. [facility] ondansetron (ZOFRAN-ODT) 4 MG disintegrating tablet 2018-12-26 09:59:23 2018-12-26 00:00:00 No 4mg Take 4 mg by mouth every 6 (six) hours as needed for Nausea. [facility] lactulose (CHRONULAC) 20 gram/30 mL solution 2018-12-26 00:00:00 Yes 30g Q.[id number] Take 45 mLs (30 g total) by mouth 3 ( three) times daily. [facility] midodrine (PROAMATINE) 10 MG tablet 2018-12-26 00:00:00 Yes 10mg Q.[id number] Take 1 tablet (10 mg total) by mouth 3 ( three) times daily. [facility] phytonadione, vitamin K1, (MEPHYTON) 5 mg tablet 2018-12-26 00:00:00 2019-02-04 00:00:00 No 5mg QD Take 1 tablet (5 mg total) by mouth daily. [facility] ciprofloxacin HCl (CIPRO) 500 MG tablet 00:00:00 2018-12-29 23:59:00 No 500mg QD Take 1 tablet (500 mg total) by mouth daily for 3 days. [facility] folic acid (FOLVITE) 1 MG tablet 2018-11-07 00:00:00 2019-10 23:59:00 No 1mg QD Take 1 tablet (1 mg total) by mouth daily. [facility] pantoprazole (PROTONIX) 40 MG tablet 2018-11-07 00:00: 00 2019-05-10 00:00:00 No 40mg QD Take 1 tablet (40 mg total) by mouth [place]. [facility] lactulose (CHRONULAC) 20 gram/30 mL solution 201 11-05-11 00:00:00 2018-12-26 00:00:00 No 30g Q.[id number] Ta ke 45 mLs (30 g total) by mouth 3 (three) times daily. [facility] ipratropium (ATROVENT) 0.02 % nebulizer solution 2018-11-07 00:00:00 2018-12-26 00:00:00 No .5mg Take 2.5 mLs (0.5 mg total) by nebulization every 6 (six) hours as needed. [facility] levoFLOXacin (LEVAQUIN) IVPB 250 mg in dextrose 5% (D5W) 50 mL 2018-11-07 00:00:00 2018-12-26 00:00:00 No 250mg Q24H Inject 50 mLs (250 mg total) intravenously daily. [facility] melatonin 3 mg Tab tablet 2018-11-07 00:00:00 2018-12-26 00:00:0 0 No 6mg Take 2 tablets (6 mg total) by mouth every night as needed. [facility] octreotide (SANDOSTATIN) 100 mcg/mL Soln 2018-10 00:00:00 2018-12-26 00:00:00 No 100ug Q.[id number] In ject 1 mL (100 mcg total) subcutaneously 3 (three) times daily. [facility] phytonadione 0.8 mg/mL Soln ORAL solution 11-07 00:00:00 2018-12-26 00:00:00 No 5mg QD Take 6.25 mLs (5 mg total) by m outh daily. [facility] thiamine (B-1) 100 mg/mL injection 2018-11-07 00:00:00 11-05-30 00:00:00 No 100mg QD Inject 1 mL (100 mg total) intravenously daily. [facility] traZODone (DESYREL) 50 MG tablet 2018-11-07 00:00:2018-11 23:59:00 No 50mg Take 1 tablet (50 mg total) by mouth every night as needed for up to 30 days. [facility] midodrine (PROAMATINE) 5 MG tablet 2018-11-07 00:00:00 201 11-06-11 23:59:00 No 5mg Q.[id number] Take 1 ta blet (5 mg total) by mouth 3 (three) times daily for 30 days. [facility] multivitamin (THERAGRAN) tablet 2018-07-10 00:00:00 23:59:00 No 1{tbl} QD Take 1 tablet by mouth daily. [facility] Folic Acid Folic Acid Yes 1 Daily [facility] Furosemide Furosemide Yes [facility] Hydroxyzine Hcl Hydroxyzine Hcl Yes [facility] Midodrine Hcl Midodrine Hcl Yes [facility] Ondansetron Hcl Ondansetron Hcl Yes 4 [facility] Tramadol Hcl (Ultram 50MG*) 50 Mg TAB Tramadol Hcl (Ultram 50MG*) [address] [facility] Trazodone Hcl Trazodone Hcl Yes [address] [facility] Hydrochlorothiazide Hydrochlorothiazide 2019-10-21 00:00:00 No 25 Daily [facility] Pantoprazole Sodium (Protonix) 40 Mg TABLET. Pantopr azole Sodium (Protonix) 40 Mg TABLET. 2019-10-21 00:00:[address] [facility] Nifedipine (Nifedipine Er) 30 Mg TAB.ER.24 Nifedipine (Nifedipine Er) 30 Mg TAB.ER.24 2019-10-18 00:00:00 No [address] [facility] Levofloxacin (Levaquin) 500 Mg TABLET Levofloxacin (Levaquin) 50 0 Mg TABLET 2018-05-27 00:00:[address] [facility] Olmesartan Med/Amlodipine/Hctz (Tribenzor 40-5-12.5 Mg Tablet) 1 Each TABLET Olmesartan Med/Amlodipine/Hctz (Tribenzor 40-5-12.5 Mg Tablet) 1 Each TABLET 2018-05-27 00:00:[address] [facility] Pantoprazole Sodium (Protonix) 40 Mg TABLET. Pantopr azole Sodium (Protonix) 40 Mg TABLET. 2018-05-27 00:00:[address] [facility] Vital Signs Vital Name Observation Time Observation Value Comments Source Body Temperature 2019-11-06 15:00:00 97.9 [degF] [facility] Weight 2019-11-04 07:00:00 215.06 [lb_av] [facility] BMI (Body Mass Index) 2019-11-04 07:00:00 30.0 kg/m2 [facility] Body Temperature 2019-10-21 15:34:00 97.7 [degF] [facility] BMI (Body Mass Index) 2019-10-18 16:11:00 30.7 kg/m2 [facility] Weight 2019-10-18 12:15:00 226 [lb_av] [facility] Body Temperature 2019-09-27 17:18:00 99.0 [degF] [facility] BMI (Body Mass Index) 2019-09-27 09:42:00 26.6 kg/m2 [facility] Weight 2019-09-26 13:55:00 196 [lb_av] [facility] Systolic blood pressure 2019-05-13 10:59:00 115 mm[Hg] [facility] Diastolic blood pressure 2019-05-13 10:59:00 69 mm[Hg] [facility] Heart rate 2019-05-13 10:59:00 90 /min [facility] Body temperature 2019-05-13 10:59:00 36.94 Dariel [facility] Respiratory rate 2019-05-13 10:59:00 18 /min [facility] Body height 2019-05-13 10:59:00 180.3 cm [facility] Body weight Measured 2019-05-13 10:59:00 86.229 kg [facility] BMI 2019-05-13 10:59:00 26.51 kg/m2 [facility] Oxygen saturation in Arterial blood by Pulse oximetry 05-12 10:59:00 100 /min [facility] Procedures Procedure Date / Time Performed Performing Clinician [facility] US Abdomen limited 2019-11-06 00:00:00 [facility] US guided paracentesis 2019-11-06 00:00:00 [facility] US guided paracentesis 2019-11-02 00:00:[address] [facility] [address] of abdomen and pelvis without contrast 2019-11-01 00:00:00 [facility] PERFORMANCE OF URINARY FILTRATION, <6 HRS/DAY 2019-10-21 00:00:[address] [facility] US guided paracentesis 2019-10-19 00:00:00 [facility] DRAINAGE OF PERITONEAL CAVITY, PERCUTANEOUS APPROACH 2019-10-19 00:00:00 [facility] TRANSFUSE NONAUT FROZEN PLASMA IN PERIPH VEIN, PERC 2019-10-19 0 0:00:00 [facility] US Abdomen limited 2019-10-18 00:00:00 [facility] CT of abdomen and pelvis without contrast 2019-10-18 00:00:00 [facility] TRANSFUSE NONAUT RED BLOOD CELLS IN PERIPH VEIN, PERC 2019-10-18 00:00:00 [facility] PERFORMANCE OF URINARY FILTRATION, <6 HRS/DAY 2019-10-18 00:00:[address] [facility] PERFORMANCE OF URINARY FILTRATION, <6 HRS/DAY 2019-09-27 00:00:[address] [facility] TRANSFUSE NONAUT RED BLOOD CELLS IN PERIPH VEIN, PERC 2019-09-27 00:00:00 [facility] US abdomen complete 2019-09-26 00:00:00 [facility] PERFORMANCE OF URINARY FILTRATION, <6 HRS/DAY 2019-09-26 00:00:[address] [facility] TRANSFUSE NONAUT RED BLOOD CELLS IN PERIPH VEIN, PERC 2019-09-26 00:00:00 [facility] MR ABDOMEN WITH & WITHOUT IV CONTRAST 2019-05-23 12:08:00 Stribl ing, Rise J. [facility] BASIC METABOLIC PANEL (7) 2019-05-23 09:03:00 Devyn Lantigua [facility] HEPATIC FUNCTION PANEL 2019-05-23 09:03:00 Devyn Lantigua [facility] PROTHROMBIN TIME/INR 2019-05-23 09:03:00 Devyn Lantigua [facility] CBC W/PLT COUNT & AUTO DIFFERENTIAL 2019-05-23 09:03:00 Alfred Lantigua [facility] RHYTHM STRIP - SCAN 2019-05-15 16:11:24 Provider, Default Zita [facility] MISCELLANEOUS LAB ORDER 2019-05-14 09:30:00 Placido Zimmerman [facility] PROTHROMBIN TIME/INR 2019-05-14 09:30:00 Devyn Lantigua [facility] HEPATIC FUNCTION PANEL 2019-05-14 09:30:00 Devyn Lantigua [facility] BASIC METABOLIC PANEL (7) 2019-05-14 09:30:00 Devyn Lantigua [facility] BILIRUBIN, DIRECT 2019-05-14 09:30:00 Devyn Lantigua [facility] CBC W/PLT COUNT & AUTO DIFFERENTIAL 2019-05-14 09:30:00 Alfred Lantigua [facility] REPORT OF PROCEDURE - ENDOSCOPY SCAN 2019-05-13 11:03:24 Pro vider, Default Scanning [facility] RHYTHM STRIP - SCAN 2019-05-12 15:11:01 Provider, Default Scanni loki [facility] REPORT OF PROCEDURE - ENDOSCOPY SCAN 2019-05-12 15:10:56 Pro vider, Default Scanning [facility] CARDIAC CATH REPORT - SCAN 2019-05-12 15:10:54 Provider, Default Scanning [facility] MAGNESIUM 2019-05-10 05:22:00 [facility] 2019-05-10 05:22:00 Serena, Carlos [facility] NM MYOCARDIAL PERFUSION PET/CT (REST & STRESS) 2019-05-09 14:55: 00 Robbie New [facility] TREADMILL TOLERANCE(NON-NUCLEAR TREADMILL) 2019-05-09 14:24: 27 Unknown, Hl7 Doctor [facility] HEMODIALYSIS INPATIENT 2019-05-09 07:47:24 Rosamaria Maldonado [facility] MAGNESIUM 2019-05-09 05:35:00 Serena, Carlos [facility] PHOSPHORUS 2019-05-09 05:35:00 Carlos Lyons [facility] COMPREHENSIVE METABOLIC PANEL 2019-05-09 05:35:00 Kate Guido [facility] CBC W/PLT COUNT & AUTO DIFFERENTIAL 2019-05-09 05:35:00 Kate Truong [facility] TRANSFUSION SERVICE REPORT - SCAN 2019-05-08 17:52:07 Provid er, Default Scanning [facility] LIMITED 2D ECHOCARDIOGRAM 2019-05-08 11:40:31 Robbie New [facility] PROCALCITONIN 2019-05-08 03:02:00 Carlos Lyons Manuelito [facility] MAGNESIUM 2019-05-08 03:02:00 Serena, Carlos [facility] PHOSPHORUS 2019-05-08 03:02:00 Serena, Carlos [facility] BASIC METABOLIC PANEL (7) 2019-05-08 03:02:00 Idris Murry ph [facility] CBC W/PLT COUNT & AUTO DIFFERENTIAL 2019-05-08 03:02:00 Indra Munguia [facility] (CELLAVISION MANUAL DIFF) 2019-05-08 03:02:00 LovelyIdris allie Valdes [facility] HEMODIALYSIS INPATIENT 2019-05-08 00:48:36 Rosamaria Maldonado [facility] PREPARE LEUKO-REDUCED RBC 2019-05-07 23:54:00 Zamzam Correa [facility] PERIPHERAL VASCULAR REPORT - SCAN 2019-05-07 21:12:27 Provid er, Default Scanning [facility] PERICARDIOCENTESIS 2019-05-07 20:33:00 Eduardo [facility] BODY FLUID CULTURE + GRAM STAIN 2019-05-07 19:20:14 Robbie New [facility] CYTOLOGY 2019-05-07 19:20:00 Robbie New [facility] 2D ECHO W/ DOPPLER (CW/PW/COLOR) 2019-05-07 18:32:29 Coreen New [facility] TRANSFUSION SERVICE REPORT - SCAN 2019-05-07 17:52:09 Provid er, Default Scanning [facility] COMPREHENSIVE METABOLIC PANEL 2019-05-07 06:42:00 Clarke Meadows [facility] CBC W/PLT COUNT & AUTO DIFFERENTIAL 2019-05-07 06:42:00 Isacc Meadows [facility] (CELLAVISION MANUAL DIFF) 2019-05-07 06:42:00 Clarke Meadows [facility] PREPARE LEUKO-REDUCED RBC 2019-05-06 23:54:00 Jimena Calhoun [facility] TRANSFUSION SERVICE REPORT - SCAN 2019-05-06 18:02:23 Provid er, Default Scanning [facility] CAROTID DOPPLER BILATERAL 2019-05-06 16:05:00 Karen Carranza [facility] REPORT OF PROCEDURE - ENDOSCOPY URL 2019-05-06 13:43:19 Zainab Alves [facility] 2D ECHO W/ DOPPLER (CW/PW/COLOR) 2019-05-06 13:06:03 Coreen New [facility] UPPER ENDOSCOPY 2019-05-06 10:00:00 Zainab Alves [facility] COMPREHENSIVE METABOLIC PANEL 2019-05-06 04:52:00 Angelic Lomeli [facility] MAGNESIUM 2019-05-06 04:52:00 Madeline [facility] CBC W/PLT COUNT & AUTO DIFFERENTIAL 2019-05-06 04:52:00 Kin Lomeli [facility] (CELLAVISION MANUAL DIFF) 2019-05-06 04:52:00 Angelic Lomeli [facility] TRANSFUSE LEUKO-REDUCED RED BLOOD CELLS 2019-05-06 03:24:02 Madeline [facility] CBC W/PLT COUNT & AUTO DIFFERENTIAL 2019-05-05 21:10:00 Madeline [facility] BASIC METABOLIC PANEL (7) 2019-05-05 21:09:00 Zamzam Correa CH I [facility] MAGNESIUM 2019-05-05 21:09:00 Madeline [facility] TROPONIN I 2019-05-05 21:09:00 Madeline [facility] ECG 12-LEAD 2019-05-05 20:53:39 Unknown, 7 [facility] ECG 12-LEAD 2019-05-05 20:52:05 Unknown, 7 [facility] ECG 12-LEAD 2019-05-05 19:34:00 Unknown, 7 [facility] ECG 12-LEAD 2019-05-05 19:32:27 Unknown, 7 [facility] TRANSFUSION SERVICE REPORT - SCAN 2019-05-05 17:52:36 Provid er, Default Scanning [facility] HEMODIALYSIS INPATIENT 2019-05-05 15:16:18 Rosamaria Maldonado [facility] HEPATITIS B SURFACE ANTIGEN 2019-05-05 15:02:00 Christopher Maldonado [facility] OCCULT BLOOD, STOOL 2019-05-05 12:07:00 Angelic Lomeli Bryson [facility] COMPREHENSIVE METABOLIC PANEL 2019-05-05 09:51:00 Armani [facility] RETICULOCYTE COUNT 2019-05-05 09:51:00 Armani [facility] BILIRUBIN, DIRECT 2019-05-05 09:51:00 Armani [facility] FERRITIN 2019-05-05 09:51:00 Armani [facility] IRON, TIBC, % SAT. (WITHOUT FERRITIN) 2019-05-05 09:51:00 Armani [facility] DIRECT AHG (LUMA)/DIRECT ANTONIA 2019-05-05 09:51:00 Armani [facility] ABORH, MANUAL 2019-05-05 09:51:00 Armani [facility] CBC W/PLT COUNT & AUTO DIFFERENTIAL 2019-05-05 09:51:00 Kin Lomeli [facility] TRANSFUSE LEUKO-REDUCED RED BLOOD CELLS 2019-05-05 08:35:39 LjFormerly [facility] TRANSFUSE LEUKO-REDUCED RED BLOOD CELLS 2019-05-05 01:08:39 Lj [facility] LACTIC ACID, VENOUS 2019-05-05 00:29:00 LjFormerly [facility] ECG 12-LEAD 2019-05-05 00:27:17 Unknown, Hl7 [facility] TYPE AND SCREEN, AUTOMATED 2019-05-04 20:42:00 Jimena Calhoun [facility] URINE CULTURE 2019-05-04 19:53:00 Lj [facility] URINALYSIS W/ REFLEX URINE CULTURE 2019-05-04 19:53:00 Terrence Calhoun [facility] LEGIONELLA URINE ANTIGEN 2019-05-04 19:53:00 Lj [facility] BLOOD CULTURE 2019-05-04 19:29:00 Lj [facility] MAGNESIUM 2019-05-04 19:29:00 Lj [facility] PHOSPHORUS 2019-05-04 19:29:00 Lj [facility] B-TYPE NATRIURETIC FACTOR (BNP) 2019-05-04 19:29:00 Lj, [facility] PT/APTT 2019-05-04 19:29:00 Lj, [facility] TROPONIN I 2019-05-04 19:29:00 Lj, [facility] COMPREHENSIVE METABOLIC PANEL 2019-05-04 19:29:00 Lj, Jimena Merlos [place] [facility] LACTIC ACID, VENOUS 2019-05-04 19:29:00 Lj, [facility] PROCALCITONIN 2019-05-04 19:29:00 Lj, [facility] CBC W/PLT COUNT & AUTO DIFFERENTIAL 2019-05-04 19:29:00 Lj, Emigdio spangler [facility] RAPID INFLUENZA A&B SCREEN 2019-05-04 19:28:00 Lj, Jimena franklin [facility] CRITICAL CARE 2019-05-04 18:47:50 Lj, [facility] XR CHEST 1 VIEW PORTABLE/BEDSIDE 2019-05-04 18:05:00 Lj, Terrencecarlin kenisha [facility] BASIC METABOLIC PANEL (7) 2019-04-07 09:34:00 Devyn Lantigua [facility] HEPATIC FUNCTION PANEL 2019-04-07 09:34:00 Devyn Lantigua [facility] PROTHROMBIN TIME/INR 2019-04-07 09:34:00 Devyn Lantigua [facility] CBC W/PLT COUNT & AUTO DIFFERENTIAL 2019-04-07 09:34:00 Alfred Lantigua [facility] BASIC METABOLIC PANEL (7) 2019-03-14 10:32:00 Devyn Lantigua [facility] HEPATIC FUNCTION PANEL 2019-03-14 10:32:00 Devyn Lantigua [facility] PROTHROMBIN TIME/INR 2019-03-14 10:32:00 Devyn Lantigua [facility] CBC W/PLT COUNT & AUTO DIFFERENTIAL 2019-03-14 10:32:00 Alfred Lantigua [facility] BILIRUBIN, DIRECT 2019-03-04 10:00:00 Devyn Lantigua [facility] COMPREHENSIVE METABOLIC PANEL 2019-03-04 10:00:00 Devyn Lantigua [facility] CBC W/PLT COUNT & AUTO DIFFERENTIAL 2019-03-04 10:00:00 Alfred Lantigua [facility] PROTHROMBIN TIME/INR 2019-03-04 09:55:00 Devyn Lantigua [facility] BILIRUBIN, DIRECT 2019-02-03 10:13:00 Perri [facility] COMPREHENSIVE METABOLIC PANEL 2019-02-03 10:13:00 Perri Norton [facility] PROTHROMBIN TIME/INR 2019-02-03 10:12:00 Perri Norton [facility] CBC W/PLT COUNT & AUTO DIFFERENTIAL 2019-02-03 10:12:00 Perri Norton [facility] US PELVIS WITH DOPPLER 2019-02-03 09:35:00 Rosamaria Maldonado [facility] RHYTHM STRIP - SCAN 2019-01-21 11:42:13 Provider, Default [facility] RHYTHM STRIP - SCAN 2019-01-20 16:02:13 Provider, Default [facility] RHYTHM STRIP - SCAN 2019-01-20 16:02:12 Provider, Default [facility] TRANSFUSION SERVICE REPORT - SCAN 2019-01-19 18:00:57 Provid er, Default Scanning [facility] PREPARE LEUKO-REDUCED RBC 2019-01-18 23:55:00 Perri Norton [facility] TRANSFUSION SERVICE REPORT - SCAN 2019-01-18 18:03:07 Provid er, Default Scanning [facility] FERRITIN 2019-01-18 17:47:00 Leonidas Elaine [facility] IRON, TIBC, % SAT. (WITHOUT FERRITIN) 2019-01-18 17:47:00 Leonidas Gutierrez [facility] LACTATE DEHYDROGENASE (LDH) 2019-01-18 17:47[facility]00 [facility] 2019-01-18 17:47:00 [facility] VITAMIN B12 AND FOLATE 2019-01-18 17:47:00 Leonidas Elaine [facility] ULTRAFILTRATION HD CRRT 2019-01-18 15:13:25 Roseanne Zelaya [facility] HEMOGLOBIN AND HEMATOCRIT 2019-01-18 11:17:00 Ye Pool [facility] CBC (HEMOGRAM ONLY) 2019-01-18 02:51:00 Ye Pool [facility] TRANSFUSE LEUKO-REDUCED RED BLOOD CELLS 2019-01-17 23:33:32 Ye Pool [facility] TRANSFUSE LEUKO-REDUCED RED BLOOD CELLS 2019-01-17 22:39:14 Ye Pool [facility] HEMODIALYSIS INPATIENT 2019-01-17 21:29:31 Garcia [facility] TYPE AND SCREEN, AUTOMATED 2019-01-17 15:35:00 Perri Norton [facility] HLA TYPING CI 2019-01-16 15:56:00 Rosamaria Maldonado [facility] HLA TYPING CII 2019-01-16 15:56:00 Rosamaria Maldonado [facility] FLOW PRA CLASS I WITH REFLEX TO ANTIBODY SPECIFICITY 2018-12 15:56:00 Rosamaria Maldonado [facility] FLOW PRA CLASS II WITH REFLEX TO ANTIBODY SPECIFICITY 2018-02 15:56:00 Rosamaria Maldonado [facility] BASIC METABOLIC PANEL (7) 2019-01-16 15:56:00 Carley [place] [facility] HEPATIC FUNCTION PANEL 2019-01-16 15:56:00 Carley [place] [facility] PROTHROMBIN TIME/INR 2019-01-16 15:56:00 [place], Parxann [facility] ALPHA FETOPROTEIN (AFP), TUMOR MARKER 2019-01-16 15:56:00 [facility] AB SPECIFICITY CLASS I 2019-01-16 15:56:00 Rosamaria Maldonado [facility] CBC W/PLT COUNT & AUTO DIFFERENTIAL 2019-01-16 15:56:00 Frederick [place] [facility] RHYTHM STRIP - SCAN 2019-01-08 09:10:11 Provider, Default Scanni [facility] TRANSFUSION SERVICE REPORT - SCAN 2019-01-06 17:50:45 Provid er, Default Scanning [facility] MISCELLANEOUS LAB ORDER 2019-01-06 06:01:00 Erik De Leon [facility] CBC (HEMOGRAM ONLY) 2019-01-06 06:01:00 [facility] BASIC METABOLIC PANEL (7) 2019-01-06 06:01:00 Jeny Paredes V. [facility] MAGNESIUM 2019-01-06 06:01:00 [facility]INR 2019-01-06 06:01:00 Jeny [facility]es [facility] HEPATIC FUNCTION PANEL 2019-01-06 06:01:00 [facility] PREPARE LEUKO-REDUCED RBC 2019-01-05 23:54:00 Vimal Breen [facility] TRANSFUSION SERVICE REPORT - SCAN 2019-01-05 17:50:34 Provid er, Default Scanning [facility] CBC (HEMOGRAM ONLY) 2019-01-05 04:30:00 Jeny Paredes V. [facility] BASIC METABOLIC PANEL (7) 2019-01-05 04:30:00 Jeny Paredes [facility]. [facility] MAGNESIUM 2019-01-05 04:30:00 Rj [facility] Systems[facility] HEPATIC FUNCTION PANEL 2019-01-05 04:30:00 Rj Paredeswelch Yasmin [facility] PROTHROMBIN TIME/INR 2019-01-05 04:30:00 Jeny [facility]aredes [facility] PREPARE LEUKO-REDUCED RBC 2019-01-04 23:54:00 Pratik Valdez [facility] TRANSFUSION SERVICE REPORT - SCAN 2019-01-04 17:53:27 Provid er, Default Scanning [facility] DRUG SCREEN, URINE, COMPREHENSIVE 2019-01-04 17:39:00 Laine Roper [facility] DRUG SCREEN, URINE, TRANSPLANT 2019-01-04 17:39:00 Jacquelin Kai [facility] TRANSFUSE LEUKO-REDUCED RED BLOOD CELLS 2019-01-04 14:09:28 Vimal Breen [facility] ETHANOL 2019-01-04 09:42:00 Jacquelin [facility] BASIC METABOLIC PANEL (7) 2019-01-04 04:07:00 Vimal rBeen [facility] HEPATIC FUNCTION PANEL 2019-01-04 04:07:00 Vimal Breen [facility] CBC W/PLT COUNT & AUTO DIFFERENTIAL 2019-01-04 04:07:00 Vimal Parsons [facility] TRANSFUSE LEUKO-REDUCED RED BLOOD CELLS 2019-01-04 01:55:28 Pratik Valdez [facility] TYPE AND SCREEN, AUTOMATED 2019-01-03 21:56:00 Pratik Valdez [facility] BASIC METABOLIC PANEL (7) 2019-01-03 21:54:00 Pratik Valdez [facility] HEPATIC FUNCTION PANEL 2019-01-03 21:54:00 Pratik Valdez [facility] PT/APTT 2019-01-03 21:54:00 Pratik Valdez [facility] CBC W/PLT COUNT & AUTO DIFFERENTIAL 2019-01-03 21:54:00 Kin Valdez [facility] REPORT OF PROCEDURE - ENDOSCOPY SCAN 2018-12-31 12:52:49 Pro vider, Default Scanning [facility] TRANSFUSION SERVICE REPORT - SCAN 2018-12-27 18:02:58 Provid er, Default Scanning [facility] RHYTHM STRIP - SCAN 2018-12-27 16:04:17 Provider, Default Scanni ng [facility] PREPARE LEUKO-REDUCED RBC 2018-12-26 23:54:00 Audie Hoyt CH I [facility] TRANSFUSION SERVICE REPORT - SCAN 2018-12-26 18:02:50 Provid er, Default Scanning [facility] VANCOMYCIN LEVEL, RANDOM 2018-12-26 03:56:00 Maurice Stern [facility] BASIC METABOLIC PANEL (7) 2018-12-26 03:56:[address] [facility] MAGNESIUM 2018-12-26 03:56:[address] [facility] PHOSPHORUS 2018-12-26 03:56:00 [facility] 2018-12-26 03:56:00 Audie Hoyt [facility] HEPATIC FUNCTION PANEL 2018-12-26 03:56:00 Kai [facility] CBC W/PLT COUNT & AUTO DIFFERENTIAL 2018-12-26 03:56:[address] [facility] PERIPHERAL VASCULAR REPORT - SCAN 2018-12-25 21:23:01 Provid er, Default Scanning [facility] TRANSFUSE LEUKO-REDUCED RED BLOOD CELLS 2018-12-25 11:12:26 Audie Huerta [facility] TYPE AND SCREEN, AUTOMATED 2018-12-25 08:51:00 Audie Hoyt [facility] BLOOD CULTURE 2018-12-25 08:25:00 Sydney Vasquez [facility] BASIC METABOLIC PANEL (7) 2018-12-25 03:46:[address] [facility] MAGNESIUM 2018-12-25 03:46:[address] [facility] PHOSPHORUS 2018-12-25 03:46:00 Landy Springer [facility] HEPATIC FUNCTION PANEL 2018-12-25 03:46:00 Placido Zimmerman [facility] PROTHROMBIN TIME/INR 2018-12-25 03:46:00 Placido Zimmerman [facility] LACTATE DEHYDROGENASE (LDH) 2018-12-25 03:46:00 Kai Roper [facility] CBC W/PLT COUNT & AUTO DIFFERENTIAL 2018-12-25 03:46:[address] [facility] VENOUS DOPPLER LEGS BILATERAL 2018-12-24 18:55:00 Audie Hoyt [facility] TRANSFUSION SERVICE REPORT - SCAN 2018-12-24 18:02:36 Provid er, Default Scanning [facility] BASIC METABOLIC PANEL (7) 2018-12-24 03:18:[address] [facility] MAGNESIUM 2018-12-24 03:18:[address] [facility] PHOSPHORUS 2018-12-24 03:18:[address] [facility] CBC W/PLT COUNT & AUTO DIFFERENTIAL 2018-12-24 03:18:[address] [facility] PREPARE LEUKO-REDUCED RBC 2018-12-23 23:54:00 Omero Moura [facility] HEMODIALYSIS INPATIENT 2018-12-23 23:25:30 Adri Soler CH I [facility] CBC (HEMOGRAM ONLY) 2018-12-23 20:04:00 Maurice Stern [facility] TRANSFUSION SERVICE REPORT - SCAN 2018-12-23 18:01:02 Provid er, Default Scanning [facility] BASIC METABOLIC PANEL (7) 2018-12-23 04:01:[address] [facility] MAGNESIUM 2018-12-23 04:01:[address] [facility] PHOSPHORUS 2018-12-23 04:01:[address] [facility] VANCOMYCIN LEVEL, RANDOM 2018-12-23 04:01:00 IanShmuel winifred [facility] HEPATITIS B SURFACE ANTIGEN 2018-12-23 04:01:00 Adri Soler [facility] CBC W/PLT COUNT & AUTO DIFFERENTIAL 2018-12-23 04:01:[address] [facility] PREPARE LEUKO-REDUCED RBC 2018-12-22 23:54:00 Víctor Breen [facility] CT LOWER EXTREMITY WITHOUT IV CONTRAST RIGHT 2018-12-22 21:0 4:00 Omero Moura [facility] TRANSFUSION SERVICE REPORT - SCAN 2018-12-22 18:01:22 Provid er, Default Scanning [facility] VANCOMYCIN LEVEL, TROUGH 2018-12-22 16:26:00 [facility] ([facility] ONLY[facility] 2018-12-22 16:26:00 Christy [facility] TRANSFUSE LEUKO-REDUCED RED BLOOD CELLS 2018-12-22 11:21:40 Omero Moura [facility] XR CHEST 1 VIEW PORTABLE/BEDSIDE 2018-12-22 05:29:[address] [facility] BASIC METABOLIC PANEL (7) 2018-12-22 03:56:[address] [facility] MAGNESIUM 2018-12-22 03:56:[address] [facility] PHOSPHORUS 2018-12-22 03:56:[address] [facility] LACTIC ACID, VENOUS 2018-12-22 03:56:[address] [facility] CBC W/PLT COUNT & AUTO DIFFERENTIAL 2018-12-22 03:56:[address] [facility] FIBRINOGEN 2018-12-22 03:55:00 Shmuel Sosa winifred [facility] HEMOGLOBIN AND HEMATOCRIT 2018-12-21 08:29:[address] [facility] TRANSFUSE LEUKO-REDUCED RED BLOOD CELLS 2018-12-21 07:30:55 [place] [facility] POCT-LACTIC ACID, VENOUS 2018-12-21 04:01:00 Víctor Breen Ma [facility] BLOOD CULTURE 2018-12-21 03:04:00 [place] [facility] AMMONIA 2018-12-21 02:48:00 [place] [facility] PROCALCITONIN 2018-12-21 02:48:00 [facility] POCT-LACTIC ACID, VENOUS 2018-12-21 02:01:00 Víctor Breen Ma [facility] BLOOD CULTURE 2018-12-21 01:54:00 [facility] COMPREHENSIVE METABOLIC PANEL 2018-12-21 01:53:00 [place] [facility] TROPONIN I 2018-12-21 01:53:00 [facility] PT/APTT 2018-12-21 01:53:00 [facility] MAGNESIUM 2018-12-21 01:53:00 [facility] TYPE AND SCREEN, AUTOMATED 2018-12-21 01:53:00 [facility] CBC W/PLT COUNT & AUTO DIFFERENTIAL 2018-12-21 01:53:00 [facility] XR CHEST 1 VIEW PORTABLE/BEDSIDE 2018-12-21 01:39:00 [place] [facility] XR KNEE RIGHT COMPLETE (4 VIEWS) 2018-12-21 01:39:00 [facility] 12-LEAD 2018-12-21 01:18:37 Unknown, Hl7 [facility] CRITICAL CARE 2018-12-21 01:10:14 [facility] Plan of Care Planned Activity Planned Date Details Comments Source Future Scheduled Test 2021-06-18 00:00:00 Lipid panel (proce dure) [code = 60677884] [facility] Scheduled Test 2019-11-27 00:00:00 IMM Influenza Seas onal Nov to April (>/= 19 yrs) [code = IMM Influenza Seasonal Nov to April (>/= 19 yrs)] [facility] Scheduled Test 2019-10-28 00:00:00 INFLUENZA VACCINE (#1) [code = INFLUENZA VACCINE (#1)] [facility] Scheduled Test 1984 00:00:00 PNEUMOCOCCAL VACCI NE 2-64 YEARS AT RISK (1 of 3 - PCV13) [code = PNEUMOCOCCAL VACCINE 2-64 YEARS AT RISK (1 of 3 - PCV13)] [facility] Instructions Cirrhosis [facility] Instructions Clostridium Difficile [facility] Instructions Kidney Failure [facility] Encounters Start Date/Time End Date/Time Encounter Type Admission Type Attendi [facility] Care Department Encounter ID Source 2018-01-28 08:27:07 Inpatient [facility] [id number] [facility] 2018-01-28 01:10:06 Inpatient [facility] [id number] [facility] 2018-01-27 00:00:00 Inpatient [facility] [id number] [facility] 2018-01-25 00:00:00 Inpatient [facility] [id number] [facility] 2019-10-18 10:09:00 2019-10-21 16:45:00 Discharged Inpatient [address] [facility] [id number] [facility] 2019-09-26 18:04:00 2019-09-27 19:03:00 Discharged Inpatient [address] [facility] [id number] [facility] 2019-01-09 00:00:00 2019-01-09 00:00:00 Outpatient [facility] [id number] [facility] 2018-10-16 12:41:00 2018-10-16 12:41:00 Registered Emergency Room 1 MARYLU DUQUE [facility] [id number] [facility] 2018-09-05 00:00:00 2018-09-05 00:00:00 Outpatient [facility] [id number] [facility] 2018-06-19 00:00:00 2018-06-19 00:00:00 Outpatient [facility] [id number] [facility] 2018-05-27 18:25:00 2018-06-01 07:30:00 Discharged Inpatient 1 KIET DUMAS [facility] [id number] [facility] 2018-01-30 00:00:00 2018-01-30 00:00:00 Outpatient [facility] [id number] [facility] 2018-01-29 00:00:00 2018-01-29 00:00:00 Outpatient [facility] [id number] [facility] 2018-01-24 21:17:42 2018-01-24 21:17:42 Emergency [facility] [id number] [facility] 2018-01-24 20:24:34 2018-01-24 20:24:34 Emergency [facility] [id number] [facility] 2018-01-24 17:21:24 2018-01-24 17:21:24 Inpatient [facility] [id number] [facility] Results Test Description Test Time Test Comments Results Result Comments Source CHEST SINGLE (PORTABLE) 2019-11-25 23:16:00 [place] [address] Patient Name: INDRA GALVAN JR MR #: [id number] : 1980 Age/Sex: 39/M Req #: [id number] Adm Physician: Ordered by: JIMENA CUEVAS MD Report #: [id number] Location: ER Room/Bed: Procedure: [id number] DX/CHEST SINGLE (PORTABLE) Exam Date: 11/25/19 Exam Time: 2200 REPORT STATUS: Signed EXAMINATION: CHEST SINGLE (PORTABLE) INDICATION: Anemia COMPARISON: Chest x-ray 11/01/2019, abdominal CT 10/18/2019 FINDINGS: TUBES and LINES: Right IJ central venous catheter, tip in the right atrium.. LUNGS: Low lung volumes. Stable left basilar subsegmental atelectasis/scarring. No consolidations. PLEURA: No pleural effusion or pneumothorax. HEART AND MEDIASTINUM: Cardiac size is within normal size limits. BONES AND SOFT TISSUES: No acute osseous lesion. Soft tissues are unremarkable. UPPER ABDOMEN: No free air under the diaphragm. IMPRESSION: Left basilar subsegmental atelectasis/scarring. Signed by: Roberto Mccarthy DO on 11/25/2019 11:19 PM Dictated By: ROBERTO MCCARTHY DO 18 Transcribed By: CATERINA on 11/25/192318 COPY TO: JIMENA CUEVAS MD US GUIDED PARACENTESIS 2019-11-10 14:54:00 [place] [address] Patient Name: INDRA GALVAN JR MR #: [id number] : 1980 Age/Sex: 38/M Req #: [id number] Adm Physician: JENNYFER PARKER MD Ordered by: MORGAN ROBERTSON MD Report #: [id number] Location: [facility] Room/Bed: [place] [address] Procedure: US/US GUIDED PARACENTESIS Exam Date: 11/02/19 Exam Time: 1102 REPORT STATUS: Signed PROCEDURE: Ultrasound-guided diagnostic paracentesis Procedural Personnel Attending physician(s): Sonia Mora MD Pre-procedure diagnosis: Ascites Post-procedure diagnosis: Ascites Indication: Abdominal pain, ascites Additional clinical history: None Complications: No immediate complications. IMPRESSION: Ultrasound-guided paracentesis with drainage of 60 cc of clear yellow fluid. Plan: Resume care by clinical team. PROCEDURE SUMMARY: - Limited abdominal ultrasound - Ultrasound-guided paracentesis - Additional procedure(s): None PROCEDURE DETAILS: Pre-procedure Consent: Informed consent for the procedure including risks, benefits and alternatives was obtained and time-out was performed prior to the procedure. Preparation: The site was prepared and draped using maximal sterile barrier technique including cutaneous antisepsis. Anesthesia/sedation Level of anesthesia/sedation: None Initial abdominal ultrasound Initial abdominal ultrasound was performed. Findings: Moderate ascites. A safe window for paracentesis was identified. Paracentesis Local anesthesia was administered. Given thrombocytopenia, needle aspiration rather than catheter aspiration chosen. The peritoneal cavity was accessed with a 25 gauge needle and fluid return confirmed position. Ascites was drained. The needle was then removed, and a sterile bandage was applied. Paracentesis access technique: Real-time ultrasound guidance. Post-drainage ultrasound: Not performed Additional Details Additional description of procedure: None Equipment details: None Specimens removed: Abdominal fluid Estimated blood loss (mL): None. Standardized report: [email or web address] Attestation Signer name: Dr. Sonia Mora MD I attest that I was present for the entire procedure. I reviewed the stored images and agree with the report as written. Signed by: Dr. Sonia Mora MD on 11/10/2019 2:56 PM Dictated By: SONIA MORA MD [id number] Transcribed By: CATERINA on 11/10/19 [id number] COPY TO: MORGAN ROBERTSON MD US GUIDED PARACENTESIS 2019-11-06 15:06:00 [place] [address] Patient Name: INDRA GALVAN MR #: [id number] : 1980 Age/Sex: 38/M Req #: [id number] [facility] Physician: JENNYFER PARKER MD Ordered by: MORGAN ROBERTSON MD Report #: [id number] Location: [facility] Room/Bed: [place] [address] Procedure: [id number] US/US GUIDED PARACENTESIS Exam Date: 11/06/19 Exam Time: 1340 REPORT STATUS: Signed PROCEDURE: Ultrasound-guided paracentesis Procedural Personnel Attending physician(s): Srinivasan Chiang MD Pre-procedure diagnosis: Ascites Post-procedure diagnosis: Unchanged Indication: Abdominal pain, ascites Additional clinical history: None Complications: No immediate complications. IMPRESSION: Ultrasound- guided paracentesis with drainage of 1200 mL of bilious fluid. Plan: Resume care by clinical team. ____ PROCEDURE SUMMARY: - Limited abdominal ultrasound - Ultrasound-guided paracentesis - Additional procedure(s): None PROCEDURE DETAILS: Pre-procedure Consent: Informed consent for the procedure including risks, benefits and alternatives was obtained and time-out was performed prior to the procedure. Preparation: The site was prepared and draped using maximal sterile barrier technique including cutaneous antisepsis. Anesthesia/sedation Level of anesthesia/sedation: None Initial abdominal ultrasound Initial abdominal ultrasound was performed. Findings: Moderate ascites. A safe window for paracentesis was identified. Paracentesis Local anesthesia was administered. The peritoneal cavity was accessed and fluid return confirmed position. Ascites was drained. The catheter was then removed, and a sterile bandage was applied. Paracentesis access technique: Real-time ultrasound guidance. Catheter placed: 20 gauge needle Post-drainage ultrasound: Not performed Additional Details Additional description of procedure: None Equipment details: None Specimens removed: Abdominal fluid Estimated blood loss (mL): Minimal (<10cc) Standardized report: [email or web address] Attestation Signer name: Srinivasan Chiang MD I attest that I was present for the entire procedure. I reviewed the stored images and agree with the report as written. Signed by: Srinivasan Chiang MD on 11/06/2019 3:07 PM Dictated By: SRINIVASAN CHIANG MD 06 Transcribed By: CATERINA on 11/06/191506 COPY TO: MORGAN ROBERTSON MD Blood leukocytes automated count (number/volume) 2019-11-06 14:30:00 Test Item White Blood Count (test code = 6690-2) 12.13 4.8-10.8 [facility]ufkinBlood erythrocytes automated count (number/volume)2019-11-06 14:30:00* Test Item Value Reference Range Interpretation Comments Red Blood Count (test code = 789-8) 3.14 4.3-5.7 [facility]kinBlood hemoglobin measurement (moles/volume)2019-11-06 14:30:00* Test Item Value Reference Range Interpretation Comments Hemoglobin (test code = 32714-6) 9.9 14.0-18.0 [facility]ufkinAutomated blood hematocrit (volume fraction)2019-11-06 14:30:00* Test Item Value Reference Range Interpretation Comments Hematocrit (test code = 4544-3) 28.6 38.2-49.6 [facility]ufkinAutomated erythrocyte mean corpuscular mredmc4666-73-70 14:30:00* Test Item Value Reference Range Interpretation Comments Mean Corpuscular Volume (test code = 787-2) 91.1 81-99 [facility]ufkinAutomated erythrocyte mean corpuscular hemoglobin (mass per erythrocyte)2019-11-06 14:30:00* Test Item Value Reference Range Interpretation Comments Mean Corpuscular Hemoglobin (test code = 785-6) 31.5 28-32 [facility]ufkinAutomated erythrocyte mean corpuscular hemoglobin concentration measurement (mass/volume)2019-11-06 14:30:00* Test Item Value Reference Range Interpretation Comments Mean Corpuscular Hemoglobin Concent (test code = 786-4) 34.6 31-35 [facility] LufkinRDW SchDu-Cbz5626-02-10 14:30:00* Test Item Value Reference Range Interpretation Comments Red Cell Distribution Width (test code = 35003-9) 19.1 11.7 -14.4 [facility]ufkinAutomated blood platelet count (count/volume)2019-11-06 14:30:00* Test Item Value Reference Range Interpretation Comments Platelet Count (test code = 777-3) 45 140-360 Results repeated and called to OSCAR NGUYỄN at 1439 on 11/06/19 by VICKY MANN. Read back and verified.[facility]ufkinAutomated blood segmented neutrophil count as percentage of total ivakzmflti4235-12-16 14:30:00* Test Item Value Reference Range Interpretation Comments Neutrophils (%) (Auto) (test code = 28099-3) 79.8 38.7-80.0 [facility]ufkinAutomated blood lymphocyte count as percentage ot total mqdyvyxumw9738-35-84 14:30:00* Test Item Value Reference Range Interpretation Comments Lymphocytes (%) (Auto) (test code = 736-9) 3.6 18.0-39.1 [facility]ufkinAutomated blood monocyte count as percentage of total ivvjybypsi0682-93-22 14:30:00* Test Item Value Reference Range Interpretation Comments Monocytes (%) (Auto) (test code = 5905-5) 10.3 4.4-11.3 [facility]kinAutomated blood eosinophil count as percentage of total oduhrtyiip7480-14-52 14:30:00* Test Item Value Reference Range Interpretation Comments Eosinophils (%) (Auto) (test code = 713-8) 4.4 0.0-6.0 [facility]kinAutomated blood basophil count as percentage of total harcsiyeap4325-30-83 14:30:00* Test Item Value Reference Range Interpretation Comments Basophils (%) (Auto) (test code = 706-2) 0.8 0.0-1.0 [facility] LufkinFluoroscopic procedure less than one hour krnupkaq8422-44-48 14:30:00* Test Item Value Reference Range Interpretation Comments IM GRANULOCYTES % (test code = IM GRANULOCYTES %) 1.1 0.0- 1.0 [facility]ufkinAutomated blood neutrophil count 2019-11-06 14:30:00* Test Item Value Reference Range Interpretation Comments Neutrophils # (Auto) (test code = 751-8) 9.7 2.1-6.9 [facility]kinBlood lymphocytes count (number/volume) 2019-11-06 14:30:00* Test Item Value Reference Range Interpretation Comments Lymphocytes # (Auto) (test code = 62770-1) 0.4 1.0-3.2 [facility]kinBlood monocytes automated count (number/volume)2019-11-06 14:30:00* Test Item Value Reference Range Interpretation Comments Monocytes # (Auto) (test code = 742-7) 1.3 0.2-0.8 [facility]kinAutomated blood eosinophil count 2019-11-06 14:30:00* Test Item Value Reference Range Interpretation Comments Eosinophils # (Auto) (test code = 711-2) 0.5 0.0-0.4 [facility]ufkinAutomated blood basophil count (count/volume)2019-11-06 14:30:00* Test Item Value Reference Range Interpretation Comments Basophils # (Auto) (test code = 704-7) 0.1 0.0-0.1 [facility] LufkinFluoroscopic procedure less than one hour dtslbmjv5017-11-58 14:30:00* Test Item Value Reference Range Interpretation Comments Absolute Immature Granulocyte (auto (doug t code = Absolute Immature Granulocyte (auto) 0.13 0-0.[address] [facility] Centerpecimen source identification of body mecng3591-71-36 13:55:00* Test Item Value Reference Range Interpretation Comments Body Fluid Type (test code = 55382-9) PERITONEAL [facility] LufkinEvaluation of color of body fluid 2019-11-06 13:55:00* Test Item Value Reference Range Interpretation Comments Body Fluid Color (test code = 6824-7) STRAW AMBERSt. Luke's Health – Memorial LufkinDetermination of appearance of body qwvzu2245-30-54 13:55:00* Test Item Value Reference Range Interpretation Comments Body Fluid Appearance (test code = 9335-1) [facility] Centerual [facility] fluid leukocytes count (number/volume)2019-11-06 13:55:00* Test Item Value Reference Range Interpretation Comments Body Fluid WBC (test code = 6743-9) 17 [facility] body fluid erythrocytes count (number/volume)2019-11-06 13:55:00* Test Item Value Reference Range Interpretation Comments Body Fluid RBC (test code = 6741-3) 1469 [facility] body fluid neutrophils/100 wweefusxra6743-29-51 13:55:00* Test Item Value Reference Range Interpretation Comments Body Fluid Neutrophils (test code = 30036-3) 10 [facility]kinBody fluid lymphocyte owdbt3175-10-76 13:55:00* Test Item Value Reference Range Interpretation Comments Body Fluid Lymphocytes (test code = 37920045) 58 [facility]ufkinBody fluid monocyte fpdzu0943-63-42 13:55:00* Test Item Value Reference Range Interpretation Comments Body Fluid Monocytes (test code = 71764-1) 32 [facility]ufkinTotal cell zuxgk2183-07-30 13:55:00* Test Item Value Reference Range Interpretation Comments Body Fluid Total Cells Counted (test code = 97732-6) 100 [facility] LufkinUS ABDOMEN SXUAFII3954-05-24 12:21:00 [facility] [address] [place] [address] Patient Name: INDRA GALVAN JR MR #: [id number] : Age/Sex: 38/M Req #: [id number] Adm Physician: JENNYFER PARKER MD Ordered by: MORGAN ROBERTSON MD Report #: [id number] Location: [facility] Room/Bed: [place] [address] Procedure: [id number] US /US ABDOMEN LIMITED Exam Date: 11/06/19 Exam Time: 1 143 REPORT STATUS: Signed EXAM: Limited abdominal ultrasound INDICATION: Ascites, abdominal pain COMPARIS ON: None. TECHNIQUE: Transverse and longitudinal images of the 4 quadrants of the abdomen were obtained FINDINGS: Moderate ascites. Mildly nodu lar liver surface contour. IMPRESSION: Moderate ascites. Signed by: Srinivasan Chiang MD on 11/06/2019 12:22 PM Dictated By: SRINIVASAN CHIANG MD Electron ically Signed By: SRINIVASAN CHIANG MD on 11/06/19 1222 Transcribed By: CATERINA on 12/15 1222 COPY TO: MORGAN ROBERTSON MD Serum or plasma sodium measurement (moles/volume)2019-11-06 04:30:00* Test Item Value Reference Range Interpretation Comments Sodium Level (test code = 2951-2) 138 136-[address] [facility] [facility] Centererum or plasma potassium measurement (moles/volume)2019-11-06 04:30:00* Test Item Value Reference Range Interpretation Comments Potassium Level (test code = 2823-3) 3.8 3.5-5.[address] [facility] Centererum or plasma chloride measurement (moles/volume)2019-11-06 04:30:00* Test Item Value Reference Range Interpretation Comments Chloride Level (test code = 2075-0) 105 98-[address] [facility] Centererum or plasma carbon dioxide, total measurement (moles/volume)2019-11-06 04:30:00* Test Item Value Reference Range Interpretation Comments Carbon Dioxide Level (test code = 2028-9) 19 22-[address] [facility] Centererum or plasma anion hqd4664-86-56 04:30:00* Test Item Value Reference Range Interpretation Comments Anion Gap (test code = 84033-4) 17.8 8-[address] [facility] Centererum or plasma urea nitrogen measurement (mass/volume)2019-11-06 04:30:00* Test Item Value Reference Range Interpretation Comments Blood Urea Nitrogen (test code = 3094-0) 22 7-[address] [facility] Centererum or plasma creatinine measurement (mass/volume)2019-11-06 04:30:00* Test Item Value Reference Range Interpretation Comments Creatinine (test code = 2160-0) 2.95 0.72-1.[address] [facility] Centererum or plasma urea nitrogen/creatinine mass zvtef8857-94-97 04:30:00* Test Item Value Reference Range Interpretation Comments BUN/Creatinine Ratio (test code = 3097-3) 7 6-25 [facility] LufkinEstimated glomerular filtration rate (GFR) bappvnsnczrzt3072-98-60 04:30:00* Test Item Value Reference Range Interpretation Comments Estimat Glomerular Filtration Rate (test code = 680862881) 24 >60 Ranges were taken from the National Kidney Disease Education Program and the [facility] Kidney Foundation literature.Reference ranges:60 or greater: Povsep32-74 ( for 3 consecutive months): Chronic kidney disease 15 or less: Kidney failureSt. Luke's Health – Memorial LufkinGlucose ektxxiupdge6998-08-11 04:30:00* Test Item Value Reference Range Interpretation Comments Glucose Level (test code = TCR9645) 89 74-[address] [facility] Centererum or plasma calcium measurement (mass/volume)2019-11-06 04:30:00* Test Item Value Reference Range Interpretation Comments Calcium Level (test code = 81224-6) 7.7 8.4-10.[address] [facility] Medical Centererum or plasma total bilirubin measurement (mass/volume)2019-11-06 04:30:00* Test Item Value Reference Range Interpretation Comments Total Bilirubin (test code = 1975-2) > 25.0 0.2-1.2 [facility] LufkinFluoroscopic procedure less than one hour rrxyjklg7393-88-13 04:30:00* Test Item Value Reference Range Interpretation Comments Aspartate Amino Transf (AST/SGOT) (test code = Aspartate Amino Transf (AST/SGOT)) 95 5-[address] [facility] Centererum or plasma alanine aminotransferase measurement (enzymatic activity/volume)2019-11-06 04:30:00* Test Item Value Reference Range Interpretation Comments Alanine Aminotransferase (ALT/SGPT) (test code = 1742-6) 38 0-[address] [facility] Medical Centererum or plasma protein measurement (mass/volume)2019-11-06 04:30:00* Test Item Value Reference Range Interpretation Comments Total Protein (test code = 2885-2) 4.7 6.5-8.[address] [facility] Medical Centererum or plasma albumin measurement (mass/volume)2019-11-06 04:30:00* Test Item Value Reference Range Interpretation Comments Albumin (test code = 1751-7) 2.7 3.5-5.0 [facility] LufkinPlasma globulin measurement (mass/volume) 2019-11-06 04:30:00* Test Item Value Reference Range Interpretation Comments Globulin (test code = 16651-5) 2.0 2.3-3.[address] [facility] Centererum or plasma albumin/globulin mass ufmir1566-53-83 04:30:00* Test Item Value Reference Range Interpretation Comments Albumin/Globulin Ratio (test code = 1759-0) 1.4 0.8-2.[address] [facility] Centererum or plasma alkaline phosphatase measurement (enzymatic activity/volume)2019-11-06 04:30:00* Test Item Value Reference Range Interpretation Comments Alkaline Phosphatase (test code = 6768-6) 110 40-150 [facility] LufkinABDOMEN-1VIEW (KUB)2019-11-04 14:26:00 [facility] [address] [address] Patient Name: INDRA GALVAN JR MR #: [id number] : Age/Sex: 38/M Req #: [id number] Adm Physician: JENNYFER PARKER MD Ordered by: KINDRA NUNEZ MD Report #: [id number] Location: ICU Room/Bed: ICU 191-1 Procedure: [id number] DX/A BDOMEN-1VIEW (KUB) Exam Date: 11/04/19 Exam Time: 13 50 REPORT STATUS: Signed Exam: K UB - 2 views Indication: Hypovolemic shock Comparison: CT abdomen and pelvis of 11/01/2019 Findings: Several dilated loops of small bowel in the left abdomen measure up to 4.6 cm. No free air. No acute osseous injury. [place] llic embolization coils in the right lower quadrant. Impression: Severa l dilated loops of small bowel in the left abdomen measure up to 4.6 cm and ca n be seen in the setting of ileus or partial small bowel obstruction. No free air. Signed by: Srinivasan Chiang MD on 11/04/2019 2:28 PM Dictated By: OSMANY CHIANG MD 27 Transcribed By: CATERINA on 11/04/191427 COPY TO: KINDRA NUNEZ MD Prothrombin time (PT) in platelet poor plasma by coagulation uqjgn4442-84-56 05:44:00* Test Item Value Reference Range Interpretation Comments Prothrombin Time (test code = 5902-2) 21.5 11.9-14.5 [facility] LufkinINR in Platelet poor plasma by Coagulation zpyoh1353-81-34 05:44:00* Test Item Value Reference Range Interpretation Comments Prothromb Time International Ratio (test code = 6301-6) 1.77 Oral Anticoagulant Therapy INR Values:1. Low Intensity Therapy 1.5 - 2.02 . Moderate Intensity Therapy 2.0 - 3.03. High Intensity Therapy(1) 2.5 - 3. 54. High Intensity Therapy(2) 3.0 - 4.05. Panic Value INR > 5.[address] [facility] [facility] Centererum or plasma haptoglobin measurement (mass/volume)2019-11-04 05:44:00* Test Item Value Reference Range Interpretation Comments Haptoglobin (test code = 4542-7) 29 17-317 Performed at: [facility] [address] [id number] Housing Grant Analyst: Esdras Lemon MD, Phone: [phone] St. [facility] Medical Centererum or plasma conjugated bilirubin measurement (mass/volume) 2019-11-03 04:30:00* Test Item Value Reference Range Interpretation Comments Direct Bilirubin (test code = 43361-1) > 15.0 0.0-0.[address] [facility] Centererum or plasma indirect bilirubin measurement (mass/volume)2019-11-03 04:30:00* Test Item Value Reference Range Interpretation Comments Indirect Bilirubin (test code = 1971-1) 10.0 0.3-1.[address] [facility] Medical Centererum hepatitis B virus surface antibody assay by radioimmunoassay (units/volume)2019-11-02 16:20:00* Test Item Value Reference Range Interpretation Comments Hepatitis B Surface Antibody, Quant (test code = 5194-6) 36.0 Immunity>9.9 Status of Immunity Anti-HBs Level Inconsistent with Immunity 0.0 - 9.9Consistent with Immunity >9.9CHI [facility] Medical Centererum or plasma hepatitis B virus core antibody detection by yrdnmltxklf6988-77-35 16:20:00* Test Item Value Reference Range Interpretation Comments Hepatitis B Core Total Antibody (test code = 79908-2) Negative Negative [facility] Centererum or plasma hepatitis B virus core IgM antibody detection by tykebuwttmh8672-64-03 16:20:00* Test Item Value Reference Range Interpretation Comments Hepatitis B Core IgM Antibody (test code = 54163-4) Negative Ne gative Performed at: [facility] [address] [id number] Director: Alli Georges MD, Phone: [phone] St[facility] Centererum or plasma creatine kinase measurement (enzymatic activity/volume) 2019-11-02 15:03:00* Test Item Value Reference Range Interpretation Comments Creatine Kinase (test code = 2157-6) 28 30-[address] [facility] Centererum or plasma creatine kinase MB measurement (mass/volume)2019-11-02 15:03:00* Test Item Value Reference Range Interpretation Comments Creatine Kinase MB (test code = 77077-2) 1.10 0-5.0 [facility] LufkinTroponin I measurement by highly sensitive enzyme ugzjzdniyvs3042-94-78 15:03:00* Test Item Value Reference Range Interpretation Comments Troponin I (test code = 35068-7) 0.022 0-0.300 [facility] LufkinBody fluid other cells manual count 2019-11-02 11:20:00* Test Item Value Reference Range Interpretation Comments Body Fluid Other Cells (test code = 449998697) [address] [facility] Medical Centertool lactoferrin ewkfbvplw4876-75-20 05:00:00* Test Item Value Reference Range Interpretation Comments Stool Lactoferrin (LAB) (test code = 74140-2) POSITIVE NEGATIVE Testing on stool aspirate specimens is outside refrigeration unit repairer claims since specime n type not validated on this assay.[facility] Centererum or plasma folate measurement (mass/volume)2019-11-02 05:00:00* Test Item Value Reference Range Interpretation Comments Folate (test code = 2284-8) 9.0 >3.0 A serum folate concentration of less than 3.1 ng/mL isconsidered to represent cl inical deficiency.Performed at: [facility] [address] [id number] Director: Alli Georges MD, Phone: [phone]. Luke's Health – Memorial LufkinClostridium difficile A and B toxin bwyng4939-28-58 05:00:00* Test Item Value Reference Range Interpretation Comments Clostridium Difficile Toxin A & B (test code = 634682070) POSI TIVE NEGATIVE Results called to OSCAR NGUYỄN at 1309 on 11/02/19 by Rafia Arita. RB OK.R esults called to JIMENA TINSLEY in infection control at 1309 on 11/02/19 by Rafia Arita.Testing on stool aspirate specimens is outside refrigeration unit repairer claims sinc e specimen type not validated on this assay.[facility]ufkinAutomated reticulocyte count as percentage of total tyqblwwtuwsx6567-34-97 04:50:00* Test Item Value Reference Range Interpretation Comments Percent Reticulocyte Count (test code = 96159-0) 1.9 0.8-[address] [facility] LufkinActivated partial thromboplastin time (aPTT) in platelet poor plasma by coagulation bldfq4499-82-61 04:50:00* Test Item Value Reference Range Interpretation Comments Activated Partial Thromboplast Time (test code = 64732-7) 61.2 23.8-35.5 [facility] LufkinPhosphorus kpbnvpjctif6121-74-79 04:50:00 * Test Item Value Reference Range Interpretation Comments Phosphorus Level (test code = OGV8865) 4.2 2.3-4.[address] [facility] Centererum or plasma magnesium measurement (mass/volume)2019-11-02 04:50:00* Test Item Value Reference Range Interpretation Comments Magnesium Level (test code = 10030-5) 1.9 1.3-2.[address] [facility] Centererum or plasma iron measurement (mass/volume)2019-11-02 04:50:00* Test Item Value Reference Range Interpretation Comments Iron Level (test code = 2498-4) 128 65-[address] [facility] Centererum or plasma iron binding capacity measurement (mass/volume)2019-11-02 04:50:00* Test Item Value Reference Range Interpretation Comments Total Iron Binding Capacity (test code = 2500-7) 115 261-[address] [facility] Centererum or plasma iron saturation measurement (mass fraction)2019-11-02 04:50:00* Test Item Value Reference Range Interpretation Comments Percent Iron Saturation (test code = 2502-3) 111 15-[address] [facility] Centererum or plasma transferrin measurement (mass/volume)2019-11-02 04:50:00* Test Item Value Reference Range Interpretation Comments Transferrin (test code = 3034-6) 82 174-[address] [facility] Centererum or plasma ferritin measurement (mass/volume)2019-11-02 04:50:00* Test Item Value Reference Range Interpretation Comments Ferritin (test code = 2276-4) > 2000.00 21.81-274.66 [facility] LufkinBlood cobalamin (vitamin B12) measurement (mass/volume)2019-11-02 04:50:00* Test Item Value Reference Range Interpretation Comments Vitamin B12 Level (test code = 31802-3) 1729 213-816 [facility] LufkinAmmonia Fxl-pYml5465-25-06 01:20:00* Test Item Value Reference Range Interpretation Comments Ammonia (test code = 60007-5) > 1700 31-[address] [facility] Centererum or plasma ethanol measurement (mass/volume)2019-11-02 01:20:00* Test Item Value Reference Range Interpretation Comments Ethyl Alcohol Level (test code = 5643-2) < 10.0 0.0-10.0 [facility] LufkinCT ABDOMEN/PELVIS [id number] 22:20:00 [facility] [address] [place] [address] Patient Name: INDRA GALVAN JR MR #: [id number] : Age/Sex: 38/M Req #: [id number] Adm Physician: JENNYFER PARKER MD Ordered by: MARYLU KELSEY DO Report #: [id number] Location: [facility] Room/Bed: [place] [address] Procedure: [id number] CT/CT ABDOMEN/PELVIS WO Exam Date: 11/01/19 Exam Fernando e: 2156 REPORT STATUS: Signed EX AM: CT Abdomen and Pelvis WITHOUT contrast INDICATION: Y liver c irhosis [id number] COMPARISON: CT dated 10/18/2019 TECHNIQUE: Abdom en and pelvis were scanned utilizing a multidetector helical scanner from the lung base to the pubic symphysis without administration of IV contrast. Absenc e of intravenous contrast decreases sensitivity for detection of focal lesions and vascular pathology. Coronal and sagittal reformations were obtained. Rout ine protocol was performed. IV CONTRAST: None ORAL CONTRAST: Wate r COMPLICATIONS: None RADIATION DOSE: Total DLP: .. . mGy*cm Estimated effective dose: (DLP x 0.015 x size factor) mSv CTDIvol has been reviewed. It is below the limits set by the Radiation Protoc ol Committee (RPC). FINDINGS: LINES and TUBES: Distal tip of central l ine is visualized at cavoatrial junction. LOWER THORAX: Again seen bibas ilar atelectasis. Hypodense blood pool, indicative of anemia. HEPATOBILIA RY: Unenhanced liver is unremarkable. No biliary ductal dilation. GALLBLA DDER: Cholelithiasis. Minimal contour nodularity. No wall thickening. SPLEE N: Splenomegaly. PANCREAS: No focal masses or ductal dilatation. AD RENALS: Stable 1.1 cm right adrenal nodule. No left adrenal nodule. KID NEYS/URETERS: No hydronephrosis. Limited for evaluation of renal parenchyma w ithout intravenous contrast. No stones. GI TRACT: No abnormal distention or evidence of bowel obstruction. Ascending colon wall thickening. Appendix is probably surgically absent. PELVIC ORGANS/BLADDER: Mild bladder wall thick ening, could be due to incomplete distention. LYMPH NODES: No lymphadenop athy. Unchanged nonspecific prominent mesenteric lymph nodes. VESSELS: Un remarkable. PERITONEUM / RETROPERITONEUM: Small to moderate volume ascites. No free air. BONES: Chronic compression deformity of T10 vertebral body. SOFT TISSUES: Mild anasarca. IMPRESSION: 1. Limited study without intravenous contrast. 2. Cirrhotic liver. Signs of portal hyperte nsion such as splenomegaly and small to moderate volume ascites. 3. Choleli thiasis without evidence of cholecystitis. 4. Ascending colon wall thickening , could be due to portal colopathy versus infectious/inflammatory colitis in t he appropriate clinical context. Signed by: Dr. Soham Casas MD on 11/01/19 10:33 PM Dictated By: SOHAM CASAS MD 32 Transcribed By: CATERINA on 09/05/20 2233 CO PY TO: MARYLU KELSEY DO Fluoroscopic procedure less than one hour kwwlymam6332-99-71 22:05:00* Test Item Value Reference Range Interpretation Comments Coronavirus (PCR) (test code = Coronavirus (PCR)) NOT DETECTED NOTD ETECTED SARS-CoV-2 PCRHologic Aptima SARS-CoV-2 assay is a nucleic amplification test in tended for the qualitative detection of RNA from SARS-CoV-2 from nasopharyngeal (NEWCOMER HOSTESS) specimens. It is used under Emergency Use Authorization (EUA) by FDA.A posi tive result is indicative of the presence of SARS-CoV-2 RNA. Clinical correlatio n with patient history and other diagnostic information is necessary to determin e patient infection status.A negative (Not Detected) result does not preclude SA RS-CoV-2 infection. Clinical Correlation with patient history and other diagnost ic information should be used in patient management decisions.Invalid: Unable to generate a valid result on this specimen. Please submit a new specimen for repr at testing oc clinically indicated.Tesing performed by:[facility] Laboratory Services[address] [place] [address] [id number], Jimena madden MD, PhDSt. Luke's Health – Memorial LufkinCHES SINGLE (PORTABLE) 2019-11-01 21:37:00 [place] [address] Patient Name: INDRA GALVAN JR MR #: [id number] : 1980 Age/Sex: 38/M Req #: [id number] Adm Physician: Ordered by: MARYLU KELSEY DO Report #: [id number] Location: ER Room/Bed: Procedure: DX/CHEST SINGLE (PORTABLE) Exam Date: 11/01/19 Exam Time: 2115 REPORT STATUS: Signed EXAMINATION: CHEST SINGLE (PORTABLE) INDICATION: Y liver cirrohsis [id number] COMPARISON: 10/18/2019 FINDINGS: A P view TUBES and LINES: Stable right IJ dialysis catheter. LUNGS: Lungs are well inflated. Mild left lower lung field hazy opacities. Mild angela tral vascular congestion. PLEURA: No pleural effusion or pneumothorax. HEART AND MEDIASTINUM: The cardiac silhouette is enlarged. BONES AND SOFT TISSUES: No acute osseous lesion. Soft tissues are unremarkable. UPPER ABDOMEN: No free air under the diaphragm. IMPRESSION: Mild lef t lower lung field hazy opacities, representing atelectasis versus developing pneumonia in the appropriate clinical context. Enlarged cardiac silhouette and mild central vascular congestion. Signed by: Dr. Soham Casas MD on 9:39 PM Dictated By: SOHAM CASAS MD 38 Transcribed By: CATERINA on 11/01/192138 COPY TO: MARYLU KELSEY DO Fluoroscopic procedure less than one hour rijstukp4876-21-83 20:58:00* Test Item Value Reference Range Interpretation Comments Lactic Acid Level (test code = Lactic Acid Level) 1.3 0.5- 2.[address] [facility] [facility] Centererum or plasma lipase measurement (enzymatic activity/volume)2019-11-01 20:58:00* Test Item Value Reference Range Interpretation Comments Lipase (test code = 3040-3) [address] [facility] LufkinBlood ybzzniz6536-68-26 20:58:00* Test Item Value Reference Range Interpretation Comments Blood Culture (test code = 14824394) NO GROWTH AFTER [address] [facility] LufkinUrine color iqlyixgolkqqh8528-70-71 10:50:00* Test Item Value Reference Range Interpretation Comments Urine Color (test code = 5778-6) ORANGE YELLOW [facility] LufkinUrine muahlbd9331-39-40 10:50:00* Test Item Value Reference Range Interpretation Comments Urine Clarity (test code = 17006-3) CLEAR CLEAR [facility] Centerpecific gravity of Urine by Test strip 2019-10-21 10:50:00* Test Item Value Reference Range Interpretation Comments Urine Specific [place] (test code = 5811-5) 1.015 1.010-1.[address] [facility] LufkinUrine pH measurement by automated test tqrra4278-81-48 10:50:00* Test Item Value Reference Range Interpretation Comments Urine pH (test code = 83624-0) 5.5 5-7 [facility] LufkinUrine leukocyte esterase detection by eslhfrdn8827-53-92 10:50:00* Test Item Value Reference Range Interpretation Comments Urine Leukocyte Esterase (test code = 5799-2) NEGATIVE NEGATIVE [facility] LufkinUrine nitrite lnqwydxor6288-52-81 10:50:00* Test Item Value Reference Range Interpretation Comments Urine Nitrite (test code = 22028-4) NEGATIVE NEGATIVE [facility] LufkinUrine protein measurement by test strip (mass/volume)2019-10-21 10:50:00* Test Item Value Reference Range Interpretation Comments Urine Protein (test code = 5804-0) 2+ NEGATIVE [facility] LufkinUrine glucose lzuyddndw7606-58-22 10:50:00* Test Item Value Reference Range Interpretation Comments Urine Glucose (UA) (test code = 2349-9) 1+ NEGATIVE [facility] LufkinUrine ketones detection by automated test pvdae5714-79-22 10:50:00* Test Item Value Reference Range Interpretation Comments Urine Ketones (test code = 47027-2) 1+ NEGATIVE [facility] LufkinUrine urobilinogen measurement by test strip (mass/volume)2019-10-21 10:50:00* Test Item Value Reference Range Interpretation Comments Urine Urobilinogen (test code = 21950-7) 8 0.2-1 [facility] LufkinUrine total bilirubin measurement (mass/volume)2019-10-21 10:50:00* Test Item Value Reference Range Interpretation Comments Urine Bilirubin (test code = 1978-6) LARGE NEGATIVE [facility] LufkinUrine erythrocytes plzjrzmln3522-36-98 10:50:00* Test Item Value Reference Range Interpretation Comments Urine Blood (test code = 67221-6) LARGE NEGATIVE [facility] LufkinAutomated urine sediment leukocyte count by microscopy (number/high power field)2019-10-21 10:50:00* Test Item Value Reference Range Interpretation Comments Urine WBC (test code = 5821-4) 0-5 0-5 [facility] LufkinErythrocytes detection in urine sediment by light ddxbmzhadn4314-69-40 10:50:00* Test Item Value Reference Range Interpretation Comments Urine RBC (test code = 75471-4) >50 0-5 [facility] LufkinBacteria detection in urine sediment by light xsxojgczwv4497-99-09 10:50:00* Test Item Value Reference Range Interpretation Comments Urine Bacteria (test code = 44926-6) MANY NONE [facility] LufkinEpithelial cells detection in urine sediment by light ktbjmehhgs5385-37-06 10:50:00* Test Item Value Reference Range Interpretation Comments Urine Epithelial Cells (test code = 76696-1) MODERATE NONE [facility] LufkinUrine color mtlyoklgugqcg4996-06-60 10:50:00* Test Item Value Reference Range Interpretation Comments Urine Color (test code = 5778-6) ORANGE YELLOW [facility] LufkinUrine hmdaevz4161-89-64 10:50:00* Test Item Value Reference Range Interpretation Comments Urine Clarity (test code = 75653-0) CLEAR CLEAR [facility] Centerpecific gravity of Urine by Test strip 2019-10-21 10:50:00* Test Item Value Reference Range Interpretation Comments Urine Specific [place] (test code = 5811-5) 1.015 1.010-1.[address] [facility] LufkinUrine pH measurement by automated test xpxyi6438-65-68 10:50:00* Test Item Value Reference Range Interpretation Comments Urine pH (test code = 46632-9) 5.5 5-7 [facility] LufkinUrine leukocyte esterase detection by lvmlmplp7761-81-15 10:50:00* Test Item Value Reference Range Interpretation Comments Urine Leukocyte Esterase (test code = 5799-2) NEGATIVE NEGATIVE [facility] LufkinUrine nitrite prxvftxbi9200-60-18 10:50:00* Test Item Value Reference Range Interpretation Comments Urine Nitrite (test code = 06965-8) NEGATIVE NEGATIVE [facility] LufkinUrine protein measurement by test strip (mass/volume)2019-10-21 10:50:00* Test Item Value Reference Range Interpretation Comments Urine Protein (test code = 5804-0) 2+ NEGATIVE [facility] LufkinUrine glucose rnbodukem0652-30-69 10:50:00* Test Item Value Reference Range Interpretation Comments Urine Glucose (UA) (test code = 2349-9) 1+ NEGATIVE [facility] LufkinUrine ketones detection by automated test rxyai0617-76-80 10:50:00* Test Item Value Reference Range Interpretation Comments Urine Ketones (test code = 11826-6) 1+ NEGATIVE [facility] LufkinUrine urobilinogen measurement by test strip (mass/volume)2019-10-21 10:50:00* Test Item Value Reference Range Interpretation Comments Urine Urobilinogen (test code = 37745-6) 8 0.2-1 [facility]ufkinUrine total bilirubin measurement (mass/volume)2019-10-21 10:50:00* Test Item Value Reference Range Interpretation Comments Urine Bilirubin (test code = 1978-6) LARGE NEGATIVE [facility] LufkinUrine erythrocytes ssucnweiz8086-26-90 10:50:00* Test Item Value Reference Range Interpretation Comments Urine Blood (test code = 65425-0) LARGE NEGATIVE [facility] LufkinAutomated urine sediment leukocyte count by microscopy (number/high power field)2019-10-21 10:50:00* Test Item Value Reference Range Interpretation Comments Urine WBC (test code = 5821-4) 0-5 0-5 [facility] LufkinErythrocytes detection in urine sediment by light bikjagdfyx7258-59-99 10:50:00* Test Item Value Reference Range Interpretation Comments Urine RBC (test code = 87339-8) >50 0-5 [facility] LufkinBacteria detection in urine sediment by light xdohkcfbmz3345-07-55 10:50:00* Test Item Value Reference Range Interpretation Comments Urine Bacteria (test code = 31003-3) MANY NONE [facility] LufkinEpithelial cells detection in urine sediment by light rvkxthxldh3136-37-31 10:50:00* Test Item Value Reference Range Interpretation Comments Urine Epithelial Cells (test code = 22209-2) MODERATE NONE [facility] Centererum or plasma total bilirubin measurement (mass/volume)2019-10-21 10:26:00* Test Item Value Reference Range Interpretation Comments Total Bilirubin (test code = 1975-2) > 25.0 0.2-1.[address] [facility] Centererum or plasma conjugated bilirubin measurement (mass/volume)2019-10-21 10:26:00* Test Item Value Reference Range Interpretation Comments Direct Bilirubin (test code = 78554-9) > 15.0 0.0-0.[address] [facility] Centererum or plasma indirect bilirubin measurement (mass/volume)2019-10-21 10:26:00* Test Item Value Reference Range Interpretation Comments Indirect Bilirubin (test code = 1971-1) 10.0 0.3-1.[address] [facility] Centererum or plasma sodium measurement (moles/volume)2019-10-21 05:20:00* Test Item Value Reference Range Interpretation Comments Sodium Level (test code = 2951-2) 129 136-[address] [facility] [facility] Centererum or plasma potassium measurement (moles/volume)2019-10-21 05:20:00* Test Item Value Reference Range Interpretation Comments Potassium Level (test code = 2823-3) 3.8 3.5-5.[address] [facility] Centererum or plasma chloride measurement (moles/volume)2019-10-21 05:20:00* Test Item Value Reference Range Interpretation Comments Chloride Level (test code = 2075-0) 97 98-[address] [facility] Centererum or plasma carbon dioxide, total measurement (moles/volume)2019-10-21 05:20:00* Test Item Value Reference Range Interpretation Comments Carbon Dioxide Level (test code = 2028-9) 19 22-[address] [facility] Centererum or plasma anion zpg4004-60-18 05:20:00* Test Item Value Reference Range Interpretation Comments Anion Gap (test code = 66318-6) 16.8 8-[address] [facility] Centererum or plasma urea nitrogen measurement (mass/volume)2019-10-21 05:20:00* Test Item Value Reference Range Interpretation Comments Blood Urea Nitrogen (test code = 3094-0) 30 7-[address] [facility] Medical Centererum or plasma creatinine measurement (mass/volume)2019-10-21 05:20:00* Test Item Value Reference Range Interpretation Comments Creatinine (test code = 2160-0) 3.84 0.72-1.[address] [facility] Medical Centererum or plasma urea nitrogen/creatinine mass fvxwh7222-88-97 05:20:00* Test Item Value Reference Range Interpretation Comments BUN/Creatinine Ratio (test code = 3097-3) 8 6-25 [facility] LufkinEstimated glomerular filtration rate (GFR) akmgqmnybfadv1569-48-42 05:20:00* Test Item Value Reference Range Interpretation Comments Estimat Glomerular Filtration Rate (test code = 339414709) 18 >60 Ranges were taken from the National Kidney Disease Education Program and the [facility] Kidney Foundation literature.Reference ranges:60 or greater: Gehdck21-38 ( for 3 consecutive months): Chronic kidney disease 15 or less: Kidney failureSt. Luke's Health – Memorial LufkinGlucose alnxzyffifb2516-03-93 05:20:00* Test Item Value Reference Range Interpretation Comments Glucose Level (test code = VXL3219) 192 74-[address] [facility] Centererum or plasma calcium measurement (mass/volume)2019-10-21 05:20:00* Test Item Value Reference Range Interpretation Comments Calcium Level (test code = 45351-7) 7.9 8.4-10.2 [facility] Memorial LufkinFluoroscopic procedure less than one hour ryfizlqt8570-44-06 05:20:00* Test Item Value Reference Range Interpretation Comments Aspartate Amino Transf (AST/SGOT) (test code = Aspartate Amino Transf (AST/SGOT)) 59 5-[address] [facility] Medical Centererum or plasma alanine aminotransferase measurement (enzymatic activity/volume)2019-10-21 05:20:00* Test Item Value Reference Range Interpretation Comments Alanine Aminotransferase (ALT/SGPT) (test code = 1742-6) 17 0-[address] [facility] Medical Centererum or plasma protein measurement (mass/volume)2019-10-21 05:20:00* Test Item Value Reference Range Interpretation Comments Total Protein (test code = 2885-2) 5.5 6.5-8.[address] [facility] Medical Centererum or plasma albumin measurement (mass/volume)2019-10-21 05:20:00* Test Item Value Reference Range Interpretation Comments Albumin (test code = 1751-7) 2.2 3.5-5.0 [facility] Memorial LufkinPlasma globulin measurement (mass/volume) 2019-10-21 05:20:00* Test Item Value Reference Range Interpretation Comments Globulin (test code = 79399-1) 3.3 2.3-3.[address] [facility] Medical Centererum or plasma albumin/globulin mass jteij1862-55-20 05:20:00* Test Item Value Reference Range Interpretation Comments Albumin/Globulin Ratio (test code = 1759-0) 0.7 0.8-2.[address] [facility] Medical Centererum or plasma alkaline phosphatase measurement (enzymatic activity/volume)2019-10-21 05:20:00* Test Item Value Reference Range Interpretation Comments Alkaline Phosphatase (test code = 6768-6) 128 40-150 [facility] Memorial LufkinBlood leukocytes automated count (number/volume)2019-10-21 05:15:00* Test Item Value Reference Range Interpretation Comments White Blood Count (test code = 6690-2) 12.24 4.8-10.8 [facility] LufkinBlood erythrocytes automated count (number/volume)2019-10-21 05:15:00* Test Item Value Reference Range Interpretation Comments Red Blood Count (test code = 789-8) 2.18 4.3-5.7 [facility] LufkinBlood hemoglobin measurement (moles/volume)2019-10-21 05:15:00* Test Item Value Reference Range Interpretation Comments Hemoglobin (test code = 97604-4) 7.8 14.0-18.0 [facility] Memorial LufkinAutomated blood hematocrit (volume fraction)2019-10-21 05:15:00* Test Item Value Reference Range Interpretation Comments Hematocrit (test code = 4544-3) 21.7 38.2-49.6 [facility] Memorial LufkinAutomated erythrocyte mean corpuscular lksmod9550-51-66 05:15:00* Test Item Value Reference Range Interpretation Comments Mean Corpuscular Volume (test code = 787-2) 99.5 81-99 [facility] Memorial LufkinAutomated erythrocyte mean corpuscular hemoglobin (mass per erythrocyte)2019-10-21 05:15:00* Test Item Value Reference Range Interpretation Comments Mean Corpuscular Hemoglobin (test code = 785-6) 35.8 28-32 [facility] Memorial LufkinAutomated erythrocyte mean corpuscular hemoglobin concentration measurement (mass/volume)2019-10-21 05:15:00* Test Item Value Reference Range Interpretation Comments Mean Corpuscular Hemoglobin Concent (test code = 786-4) 35.9 31-35 [facility] Memorial LufkinRDW FnaCw-Uhf4751-92-25 05:15:00* Test Item Value Reference Range Interpretation Comments Red Cell Distribution Width (test code = 79515-7) 19.4 11.7 -14.4 [facility] Memorial LufkinAutomated blood platelet count (count/volume)2019-10-21 05:15:00* Test Item Value Reference Range Interpretation Comments Platelet Count (test code = 777-3) 103 140-360 [facility] LufkinAutatrium healthed blood segmented neutrophil count as percentage of total ddmtfxtvht8472-06-42 05:15:00* Test Item Value Reference Range Interpretation Comments Neutrophils (%) (Auto) (test code = 00549-6) 91.7 38.7-80.0 [facility] Memorial LufkinAutomated blood lymphocyte count as percentage ot total kwzsvalxyz6334-03-77 05:15:00* Test Item Value Reference Range Interpretation Comments Lymphocytes (%) (Auto) (test code = 736-9) 3.9 18.0-39.1 [facility] Memorial LufkinAutomated blood monocyte count as percentage of total rkcigpojdq9138-68-43 05:15:00* Test Item Value Reference Range Interpretation Comments Monocytes (%) (Auto) (test code = 5905-5) 3.3 4.4-11.3 [facility] Memorial LufkinAutomated blood eosinophil count as percentage of total tszahsrqkx9581-03-49 05:15:00* Test Item Value Reference Range Interpretation Comments Eosinophils (%) (Auto) (test code = 713-8) 0.0 0.0-6.0 [facility] Memorial LufkinAutomated blood basophil count as percentage of total qagsmjvtvy4609-09-74 05:15:00* Test Item Value Reference Range Interpretation Comments Basophils (%) (Auto) (test code = 706-2) 0.2 0.0-1.0 [facility] LufkinFluoroscopic procedure less than one hour ijcovlbk5272-17-81 05:15:00* Test Item Value Reference Range Interpretation Comments IM GRANULOCYTES % (test code = IM GRANULOCYTES %) 0.9 0.0- 1.0 [facility] Memorial LufkinAutomated blood neutrophil count 2019-10-21 05:15:00* Test Item Value Reference Range Interpretation Comments Neutrophils # (Auto) (test code = 751-8) 11.2 2.1-6.9 [facility] LufkinBlood lymphocytes count (number/volume) 2019-10-21 05:15:00* Test Item Value Reference Range Interpretation Comments Lymphocytes # (Auto) (test code = 48826-3) 0.5 1.0-3.2 [facility]kinB[facility] monocytes automated count (number/volume)2019-10-21 05:15:00* Test Item Value Reference Range Interpretation Comments Monocytes # (Auto) (test code = 742-7) 0.4 0.2-0.8 [facility] LufkinAutomated blood eosinophil count 2019-10-21 05:15:00* Test Item Value Reference Range Interpretation Comments Eosinophils # (Auto) (test code = 711-2) 0.0 0.0-0.4 [facility] LufkinAutomated blood basophil count (count/volume)2019-10-21 05:15:00* Test Item Value Reference Range Interpretation Comments Basophils # (Auto) (test code = 704-7) 0.0 0.0-0.1 [facility] LufkinFluoroscopic procedure less than one hour nddfqqwt2980-10-74 05:15:00* Test Item Value Reference Range Interpretation Comments Absolute Immature Granulocyte (auto (doug t code = Absolute Immature Granulocyte (auto) 0.11 0-0.1 [facility] LufkinFluoroscopic procedure less than one hour ddfdokkd7237-74-84 05:15:00* Test Item Value Reference Range Interpretation Comments Differential Total Cells Counted (test code = Marcia tial Total Cells Counted) 100 [facility] blood neutrophils/100 leukocytes 2019-10-21 05:15:00* Test Item Value Reference Range Interpretation Comments Neutrophils % (Manual) (test code = 42550-7) 95 40-74 [facility] blood lymphocytes/100 leukocytes 2019-10-21 05:15:00* Test Item Value Reference Range Interpretation Comments Lymphocytes % (Manual) (test code = 737-7) 3 19-48 [facility] blood monocytes/100 leukocytes 2019-10-21 05:15:00* Test Item Value Reference Range Interpretation Comments Monocytes % (Manual) (test code = 744-3) 2 3.4-9.0 [facility] platelets count by estimate (number/volume)2019-10-21 05:15:00* Test Item Value Reference Range Interpretation Comments Platelet Estimate (test code = 10940-7) SLIGHTLY DECREASED [facility] LufkinPlatelet hhbbdityjb3163-23-55 05:15:00* Test Item Value Reference Range Interpretation Comments Platelet Morphology Comment (test code = 94956-9) NORMAL [facility] anisocytosis detection by light bozydvhaaf8031-19-28 05:15:00* Test Item Value Reference Range Interpretation Comments Anisocytosis (test code = 702-1) SLIGHT [facility] macrocytes detection by light wvsisgeljj2867-19-88 05:15:00* Test Item Value Reference Range Interpretation Comments Macrocytosis (test code = 738-5) SLIGHT [facility] dacrocytes detection by light ebmpvzozap2781-20-39 05:15:00* Test Item Value Reference Range Interpretation Comments Tear Drop Cells (test code = 7791-7) FEW [facility] LufkinRBC layxphlpfi7006-29-00 05:15:00* Test Item Value Reference Range Interpretation Comments Red Cell Morphology Comment (test code = 6742-1) NORMAL [facility] LufkinFluoroscopic procedure less than one hour rsvqxfau6935-04-80 05:15:00* Test Item Value Reference Range Interpretation Comments Differential Total Cells Counted (test code = Marcia tial Total Cells Counted) 100 [facility] blood neutrophils/100 leukocytes 2019-10-21 05:15:00* Test Item Value Reference Range Interpretation Comments Neutrophils % (Manual) (test code = 24440-8) 95 40-74 [facility] blood lymphocytes/100 leukocytes 2019-10-21 05:15:00* Test Item Value Reference Range Interpretation Comments Lymphocytes % (Manual) (test code = 737-7) 3 19-48 [facility] blood monocytes/100 leukocytes 2019-10-21 05:15:00* Test Item Value Reference Range Interpretation Comments Monocytes % (Manual) (test code = 744-3) 2 3.4-9.0 [facility]ufkinBlood platelets count by estimate (number/volume)2019-10-21 05:15:00* Test Item Value Reference Range Interpretation Comments Platelet Estimate (test code = 38806-3) SLIGHTLY DECREASED [facility] LufkinPlatelet qhuirrxofk0358-60-12 05:15:00* Test Item Value Reference Range Interpretation Comments Platelet Morphology Comment (test code = 37332-3) NORMAL [facility] anisocytosis detection by light ixhlclspkx2986-68-47 05:15:00* Test Item Value Reference Range Interpretation Comments Anisocytosis (test code = 702-1) SLIGHT [facility] LufkinBlood macrocytes detection by light ktbucgqrks0594-16-55 05:15:00* Test Item Value Reference Range Interpretation Comments Macrocytosis (test code = 738-5) SLIGHT [facility] dacrocytes detection by light osbvawlbmg7973-00-07 05:15:00* Test Item Value Reference Range Interpretation Comments Tear Drop Cells (test code = 7791-7) FEW [facility] LufkinRBC styeixowsq4628-89-31 05:15:00* Test Item Value Reference Range Interpretation Comments Red Cell Morphology Comment (test code = 6742-1) [facility] TPGOTGXQTDLK5869-76-09 09:52:00 [facility] [address] [address] Patient Name: INDRA GALVAN JR MR #: [id number] : Age/Sex: 38/M Req #: [id number] Adm Physician: KHLOE BOX MD Ordered by: MORGAN ROBERTSON MD Report #: [id number] Location: ICU Room/Bed: ICU [facility] Procedure: [id number] US /US GUIDED PARACENTESIS Exam Date: 10/19/19 Exam Fernando e: 1714 REPORT STATUS: Signed Da te and Time: 10/19/19 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 Luke[facility] Health [facility] LufkinPhosphorus zmlduwtlhqg5999-41-84 04:30:00* Test Item Value Reference Range Interpretation Comments Phosphorus Level (test code = TYQ7375) 1.8 2.3-4.[address] [facility] Centererum or plasma thyrotropin measurement by detection limit <= 0.005 miu/l (units/volume)2019-10-20 04:30:00* Test Item Value Reference Range Interpretation Comments Thyroid Stimulating Hormone (TSH) (test code = 60174-5) 0.766 0.350-4.[address] [facility] or plasma thyrotropin measurement by detection limit <= 0.005 miu/l (units/volume)2019-10-20 04:30:00* Test Item Value Reference Range Interpretation Comments Thyroid Stimulating Hormone (TSH) (test code = 85823-4) 0.766 0.350-4.[address] [facility] Centerpecimen source identification of body wgjdl1062-75-59 20:37:00* Test Item Value Reference Range Interpretation Comments Body Fluid Type (test code = 32213-8) PERITONEAL [facility]ufkinEvaluation of color of body fluid 2019-10-19 20:37:00* Test Item Value Reference Range Interpretation Comments Body Fluid Color (test code = 6824-7) RED AMBERSt. Luke[facility] Health – Memorial LufkinDetermination of appearance of body irgzk6044-82-75 20:37:00* Test Item Value Reference Range Interpretation Comments Body Fluid Appearance (test code = 9335-1) CLOUDY [facility] body fluid leukocytes count (number/volume)2019-10-19 20:37:00* Test Item Value Reference Range Interpretation Comments Body Fluid WBC (test code = 6743-9) 88 [facility] body fluid erythrocytes count (number/volume)2019-10-19 20:37:00* Test Item Value Reference Range Interpretation Comments Body Fluid RBC (test code = 6741-3) 2375 [facility] body fluid neutrophils/100 vcdjospojs2090-12-98 20:37:00* Test Item Value Reference Range Interpretation Comments Body Fluid Neutrophils (test code = 87692-0) 20 [facility]kinBody fluid lymphocyte dbkoy2541-13-06 20:37:00* Test Item Value Reference Range Interpretation Comments Body Fluid Lymphocytes (test code = 64255742) 65 [facility]kinBody fluid monocyte hluvv8463-61-24 20:37:00* Test Item Value Reference Range Interpretation Comments Body Fluid Monocytes (test code = 89116-2) 5 [facility] fluid other cells manual count 2019-10-19 20:37:00* Test Item Value Reference Range Interpretation Comments Body Fluid Other Cells (test code = 873116700) 10 [facility]kinTotal cell zebgf9363-78-51 20:37:00* Test Item Value Reference Range Interpretation Comments Body Fluid Total Cells Counted (test code = 10332-7) 100 [facility] LufkinProthrombin time (PT) in platelet poor plasma by coagulation zintw8110-75-23 05:55:00* Test Item Value Reference Range Interpretation Comments Prothrombin Time (test code = 5902-2) 19.4 11.9-14.5 [facility] LufkinINR in Platelet poor plasma by Coagulation lgqlp1556-22-52 05:55:00* Test Item Value Reference Range Interpretation Comments Prothromb Time International Ratio (test code = 6301-6) 1.54 Oral Anticoagulant Therapy INR Values:1. Low Intensity Therapy 1.5 - 2.02 . Moderate Intensity Therapy 2.0 - 3.03. High Intensity Therapy(1) 2.5 - 3. 54. High Intensity Therapy(2) 3.0 - 4.05. Panic Value INR > 5.[address] [facility] Centererum or plasma ofcgt-5-mviigwoixdk.tumor marker measurement (mass/volume)2019-10-19 05:55:00* Test Item Value Reference Range Interpretation Comments Alpha Fetoprotein (test code = 74114-8) 4.1 0.0-8.3 [facility] Electrochemiluminescence Immunoassay(ECLIA)Values obtained wit h different assay methods or kits cannotbe used interchangeably. Results cannot be interpreted asabsolute evidence of the presence or absence of malignantdisea se.This test is not interpretable in females.Performed at: [facility] [address] [id number] Director: Alli Georges MD, Phone: [phone] St. [facility] Medical Centererum or plasma folate measurement (mass/volume)2019-10-19 05:55:00* Test Item Value Reference Range Interpretation Comments Folate (test code = 2284-8) >20.0 >3.0 A serum folate concentration of less than 3.1 ng/mL isconsidered to represent cl inical deficiency.Performed at: [facility] [address] [id number] Director: Alli Georges MD, Phone: [phone] [facility] Centererum or plasma uuecy-8-wumcsadzeyh.tumor marker measurement (mass/volume)2019-10-19 05:55:00* Test Item Value Reference Range Interpretation Comments Alpha Fetoprotein (test code = 65883-6) 4.1 0.0-8.3 [facility] Electrochemiluminescence Immunoassay(ECLIA)Values obtained wit h different assay methods or kits cannotbe used interchangeably. Results cannot be interpreted asabsolute evidence of the presence or absence of malignantdisea se.This test is not interpretable in females.Performed at: [facility] [address] [id number] Director: Alli Georges MD, Phone: [phone] [facility] CenterAmmonia [facility] 2019-10-18 21:45:00* Test Item Value Reference Range Interpretation Comments Ammonia (test code = 70770-6) 96 [address]123 [facility] CenterCT [facility]BDOM[facility]/PELVIS MU3188-67-32 20:02:00 [facility] [address] [place] [address] Patient Name: INDRA GALVAN JR MR #: [id number] : Age/Sex: 38/M Req #: [id number] Adm Physician: KHLOE BOX MD Ordered by: MORGAN ROBERTSON MD Report #: [id number] Location: ICU Room/Bed: ICU [facility] Procedure: [id number] CT /CT ABDOMEN/PELVIS WO Exam Date: 10/18/19 Exam Time: 1939 REPORT STATUS: Signed EXAM: CT Abdomen and Pelvis WITHOUT contrast INDICATION: GI bleed COMPAR QAMAR: Abdominal CT 10/16/2018. TECHNIQUE: Abdomen and pelvis were scanned utili Luxodong a multidetector helical scanner from the lung [...] Automated reticulocyte count as percentage of total nfshgcspamww3057-15-12 19:40:00* Test Item Value Reference Range Interpretation Comments Percent Reticulocyte Count (test code = 35529-8) 5.3 0.8-[address] [facility]rum or plasma magnesium measurement (mass/volume)2019-10-18 19:40:00* Test Item Value Reference Range Interpretation Comments Magnesium Level (test code = 00739-2) 1.6 1.3-2.[address] [facility] Centererum or plasma creatine kinase measurement (enzymatic activity/volume)2019-10-18 19:40:00* Test Item Value Reference Range Interpretation Comments Creatine Kinase (test code = 2157-6) 24 30-[address] [facility] Centererum or plasma creatine kinase MB measurement (mass/volume)2019-10-18 19:40:00* Test Item Value Reference Range Interpretation Comments Creatine Kinase MB (test code = 40048-8) 0.40 0-5.0 [facility] LufkinTroponin I measurement by highly sensitive enzyme rjggguairmv9767-37-28 19:40:00* Test Item Value Reference Range Interpretation Comments Troponin I (test code = 09499-9) 0.003 0-0.300 [facility] LufkinCHEST SINGLE (PORTABLE)2019-10-18 14:56:00 [place] [address] Patient Name: INDRA GALVAN JR MR #: [id number] : 1980 Age/Sex: 38/M Req #: [id number] Adm Physician: KHLOE BOX MD Ordered by: MARITZA SANTANA MD Report #: [id number] Location: ICU Room/Bed: [place] [address] Procedure: [id number] DX/ CHEST SINGLE (PORTABLE) Exam Date: 10/18/19 Exam Fernando e: 0925 REPORT STATUS: Signed EX AMINATION: CHEST SINGLE [...] on 10/18/191457 COPY TO: MARITZA SANTANA MD US ABDOMEN IOQJSEB8888-00-84 14:43:00 [place] [address] Patient Name: INDRA GALVAN MR #: [id number] : 1980 Age/Sex: 38/M Req #: [id number] Adm Physician: KHLOE BOX MD Ordered by: MORGAN ROBERTSON MD Report #: [id number] Location: ICU Room/Bed: ICU [facility] Procedure: [id number] US /US ABDOMEN LIMITED Exam Date: 10/18/19 [...] 1446 Transcr ibed By: CATERINA on 10/18/19 1446 COPY TO: MORGAN ROBERTSON MD Fluoroscopic procedure less than one hour cmzpwsul5394-74-09 11:38:00* Test Item Value Reference Range Interpretation [...] under 564(g) of the ACT.Testing performed by [facility] [place], [place] [address]CSTSt. Luke's Health – Memorial LufkinActivated partial thromboplastin time (aPTT) in platelet poor plasma by coagulation ntzam7688-37-12 08:58:00* Test Item Value Reference Range Interpretation Comments Activated Partial Thromboplast Time (test code = 32004-4) 46.5 23.8-35.[address] [facility] Centererum or plasma iron measurement (mass/volume)2019-10-18 08:58:00* Test Item Value Reference Range Interpretation Comments Iron Level (test code = 2498-4) 125 65-[address] [facility] Centererum or plasma iron binding capacity measurement (mass/volume)2019-10-18 08:58:00* Test Item Value Reference Range Interpretation Comments Total Iron Binding Capacity (test code = 2500-7) 122 261-[address] [facility] Centererum or plasma iron saturation measurement (mass fraction)2019-10-18 08:58:00* Test Item Value Reference Range Interpretation Comments Percent Iron Saturation (test code = 2502-3) 102 15-[address] [facility] Centererum or plasma transferrin measurement (mass/volume)2019-10-18 08:58:00* Test Item Value Reference Range Interpretation Comments Transferrin (test code = 3034-6) 87 174-[address] [facility] [facility] Centererum or plasma ferritin measurement (mass/volume)2019-10-18 08:58:00* Test Item Value Reference Range Interpretation Comments Ferritin (test code = 2276-4) 1212.14 21.81-274.66 [facility] LufkinBNP Trz-bSpw4375-45-22 08:58:00* Test Item Value Reference Range Interpretation Comments B-Type Natriuretic Peptide (test code = 20840-0) 1195.9 0-100 [facility] LufkinBlood cobalamin (vitamin B12) measurement (mass/volume)2019-10-18 08:58:00* Test Item Value Reference Range Interpretation Comments Vitamin B12 Level (test code = 61676-3) [address] [facility] Centererum or plasma hepatitis A virus IgM antibody detection by awwjbwyewhj6536-72-67 08:58:00* Test Item Value Reference Range Interpretation Comments Hepatitis A IgM Antibody (test code = 94737-0) Negative Negativ e [facility] Centererum or plasma hepatitis B virus surface antigen detection by zvqphmvpspk6268-31-26 08:58:00* Test Item Value Reference Range Interpretation Comments Hepatitis B Surface Antigen (test code = 5196-1) Negative Negat mumtaz [facility] Centererum or plasma hepatitis B virus core IgM antibody detection by ygyksgbcmin2318-58-16 08:58:00* Test Item Value Reference Range Interpretation Comments Hepatitis B Core IgM Antibody (test code = 99912-0) Negative Ne gative [facility] Centererum hepatitis C virus antibody mofxkotsp4005-08-89 08:58:00* Test Item Value Reference Range Interpretation Comments Hepatitis C Antibody (test code = 75082-3) 0.1 0.0-0.9 Negative: < 0.8 Indeterminate: 0.8 - 0.9 Positive: > 0.9 The CDC recommends that a positive HCV antibody result be followed up with a HCV Nucleic Acid Amplification test (206124).Performed at: [facility] [id number] Director: Alli Georges MD, Phone: [phone] Regional Medical CenterP Kfe-kBnr0842-44-22 08:58:00 * Test Item Value Reference Range Interpretation Comments B-Type Natriuretic Peptide (test code = 12193-4) 1195.9 0-[address] [facility] Centererum or plasma hepatitis A virus IgM antibody detection by kxhdszspfll8253-72-69 08:58:00* Test Item Value Reference Range Interpretation Comments Hepatitis A IgM Antibody (test code = 50451-0) Negative Negativ e [facility] Centererum or plasma hepatitis B virus surface antigen detection by xszxvkhyjdg5831-40-67 08:58:00* Test Item Value Reference Range Interpretation Comments Hepatitis B Surface Antigen (test code = 5196-1) Negative Negat mumtaz [facility] Centererum hepatitis C virus antibody bzdppeqaq8803-67-17 08:58:00* Test Item Value Reference Range Interpretation Comments Hepatitis C Antibody (test code = 14739-5) 0.1 0.0-0.9 Negative: < 0.8 Indeterminate: 0.8 - 0.9 Positive: > 0.9 The CDC recommends that a positive HCV antibody result be followed up with a HCV Nucleic Acid Amplification test (226144).Performed at: - [facility] [address] [id number] Director: Alli Georges MD, Phone: [phone]. Luke's Health – [facility] LufkinBlely[facility] leukocytes automated count (number/volume)2019-09-27 05:45:00* Test Item Value Reference Range Interpretation Comments White Blood Count (test code = 6690-2) 7.33 4.8-10.8 [facility] erythrocytes automated count (number/volume)2019-09-27 05:45:00* Test Item Value Reference Range Interpretation Comments Red Blood Count (test code = 789-8) 1.71 4.3-5.7 [facility] LufkinBlood hemoglobin measurement (moles/volume)2019-09-27 05:45:00* Test Item Value Reference Range Interpretation Comments Hemoglobin (test code = 69993-2) 6.0 14.0-18.0 Results called to CINTHYA TOVAR at 0637 on 09/27/19 by Roland Gore. RB [place]. [facility] LufkinAutomated blood hematocrit (volume fraction)2019-09-27 05:45:00* Test Item Value Reference Range Interpretation Comments Hematocrit (test code = 4544-3) 17.7 38.2-49.6 Results called to CINTHYA TOVAR at 0637 on 09/27/19 by Roland Gore. RB [place]. [facility] LufkinAutomated erythrocyte mean corpuscular idifoa4019-52-77 05:45:00* Test Item Value Reference Range Interpretation Comments Mean Corpuscular Volume (test code = 787-2) 103.5 81-99 [facility] LufkinAutomated erythrocyte mean corpuscular hemoglobin (mass per erythrocyte)2019-09-27 05:45:00* Test Item Value Reference Range Interpretation Comments Mean Corpuscular Hemoglobin (test code = 785-6) 35.1 28-32 [facility] LufkinAutomated erythrocyte mean corpuscular hemoglobin concentration measurement (mass/volume)2019-09-27 05:45:00* Test Item Value Reference Range Interpretation Comments Mean Corpuscular Hemoglobin Concent (test code = 786-4) 33.9 31-35 [facility] LufkinRDW GvdRi-Kve8813-79-01 05:45:00* Test Item Value Reference Range Interpretation Comments Red Cell Distribution Width (test code = 32606-7) 19.9 11.7 -14.4 [facility] LufkinAutomated blood platelet count (count/volume)2019-09-27 05:45:00* Test Item Value Reference Range Interpretation Comments Platelet Count (test code = 777-3) 108 140-360 [facility] LufkinAutomated blood segmented neutrophil count as percentage of total wyhagntxrs5862-34-35 05:45:00* Test Item Value Reference Range Interpretation Comments Neutrophils (%) (Auto) (test code = 19945-1) 74.2 38.7-80.0 [facility] LufkinAutomated blood lymphocyte count as percentage ot total utufstddzv3065-50-40 05:45:00* Test Item Value Reference Range Interpretation Comments Lymphocytes (%) (Auto) (test code = 736-9) 8.6 18.0-39.1 [facility] LufkinAutomated blood monocyte count as percentage of total tkfofexfzc9056-63-00 05:45:00* Test Item Value Reference Range Interpretation Comments Monocytes (%) (Auto) (test code = 5905-5) 12.3 4.4-11.3 [facility] LufkinAutomated blood eosinophil count as percentage of total njeltxatnu8094-70-43 05:45:00* Test Item Value Reference Range Interpretation Comments Eosinophils (%) (Auto) (test code = 713-8) 2.7 0.0-6.0 [facility] LufkinAutomated blood basophil count as percentage of total fpdrczutvp1211-62-96 05:45:00* Test Item Value Reference Range Interpretation Comments Basophils (%) (Auto) (test code = 706-2) 0.7 0.0-1.0 [facility] LufkinFluoroscopic procedure less than one hour ueaffsjy3911-61-99 05:45:00* Test Item Value Reference Range Interpretation Comments IM GRANULOCYTES % (test code = IM GRANULOCYTES %) 1.5 0.0- 1.0 [facility] LufkinAutomated blood neutrophil count 2019-09-27 05:45:00* Test Item Value Reference Range Interpretation Comments Neutrophils # (Auto) (test code = 751-8) 5.4 2.1-6.9 [facility] LufkinBlood lymphocytes count (number/volume) 2019-09-27 05:45:00* Test Item Value Reference Range Interpretation Comments Lymphocytes # (Auto) (test code = 77846-9) 0.6 1.0-3.2 [facility] LufkinBlood monocytes automated count (number/volume)2019-09-27 05:45:00* Test Item Value Reference Range Interpretation Comments Monocytes # (Auto) (test code = 742-7) 0.9 0.2-0.8 [facility] LufkinAutomated blood eosinophil count 2019-09-27 05:45:00* Test Item Value Reference Range Interpretation Comments Eosinophils # (Auto) (test code = 711-2) 0.2 0.0-0.4 [facility] LufkinAutomated blood basophil count (count/volume)2019-09-27 05:45:00* Test Item Value Reference Range Interpretation Comments Basophils # (Auto) (test code = 704-7) 0.1 0.0-0.1 [facility] LufkinFluoroscopic procedure less than one hour khqwnrcz3963-64-92 05:45:00* Test Item Value Reference Range Interpretation Comments Absolute Immature Granulocyte (auto (doug t code = Absolute Immature Granulocyte (auto) 0.11 0-0.[address] [facility] Centererum or plasma sodium measurement (moles/volume)2019-09-27 05:45:00* Test Item Value Reference Range Interpretation Comments Sodium Level (test code = 2951-2) 136 136-[address] [facility] [facility] Centererum or plasma potassium measurement (moles/volume)2019-09-27 05:45:00* Test Item Value Reference Range Interpretation Comments Potassium Level (test code = 2823-3) 3.2 3.5-5.[address] [facility] Centererum or plasma chloride measurement (moles/volume)2019-09-27 05:45:00* Test Item Value Reference Range Interpretation Comments Chloride Level (test code = 2075-0) 102 98-[address] [facility] Centererum or plasma carbon dioxide, total measurement (moles/volume)2019-09-27 05:45:00* Test Item Value Reference Range Interpretation Comments Carbon Dioxide Level (test code = 2028-9) 28 22-[address] [facility] Centererum or plasma anion vqb2892-87-15 05:45:00* Test Item Value Reference Range Interpretation Comments Anion Gap (test code = 83177-3) 9.2 8-[address] [facility] Centererum or plasma urea nitrogen measurement (mass/volume)2019-09-27 05:45:00* Test Item Value Reference Range Interpretation Comments Blood Urea Nitrogen (test code = 3094-0) 11 7-[address] [facility] Centererum or plasma creatinine measurement (mass/volume)2019-09-27 05:45:00* Test Item Value Reference Range Interpretation Comments Creatinine (test code = 2160-0) 2.29 0.72-1.[address] [facility] Centererum or plasma urea nitrogen/creatinine mass wnxhb8232-70-41 05:45:00* Test Item Value Reference Range Interpretation Comments BUN/Creatinine Ratio (test code = 3097-3) 5 6-25 [facility] LufkinEstimated glomerular filtration rate (GFR) utgbbveossvou2261-46-36 05:45:00* Test Item Value Reference Range Interpretation Comments Estimat Glomerular Filtration Rate (test code = 514976980) 32 >60 Ranges were taken from the National Kidney Disease Education Program and the [facility] hospitalal Kidney Foundation literature.Reference ranges:60 or greater: Pazclb94-29 ( for 3 consecutive months): Chronic kidney disease 15 or less: Kidney failureSt. Luke's Health – Memorial LufkinGlucose jlebqxhzuoo5376-55-86 05:45:00* Test Item Value Reference Range Interpretation Comments Glucose Level (test code = QFV4885) 109 74-[address] [facility] Centererum or plasma calcium measurement (mass/volume)2019-09-27 05:45:00* Test Item Value Reference Range Interpretation Comments Calcium Level (test code = 03380-0) 7.9 8.4-10.[address] [facility] Centererum or plasma iron measurement (mass/volume)2019-09-27 05:45:00* Test Item Value Reference Range Interpretation Comments Iron Level (test code = 2498-4) 70 65-[address] [facility] Centererum or plasma iron binding capacity measurement (mass/volume)2019-09-27 05:45:00* Test Item Value Reference Range Interpretation Comments Total Iron Binding Capacity (test code = 2500-7) 118 261-[address] [facility] Centererum or plasma iron saturation measurement (mass fraction)2019-09-27 05:45:00* Test Item Value Reference Range Interpretation Comments Percent Iron Saturation (test code = 2502-3) 59 15-[address] [facility] Centererum or plasma transferrin measurement (mass/volume)2019-09-27 05:45:00* Test Item Value Reference Range Interpretation Comments Transferrin (test code = 3034-6) 84 174-[address] [facility] Centererum or plasma ferritin measurement (mass/volume)2019-09-27 05:45:00* Test Item Value Reference Range Interpretation Comments Ferritin (test code = 2276-4) 565.91 21.81-274.[address] [facility] Centererum or plasma total bilirubin measurement (mass/volume)2019-09-27 05:45:00* Test Item Value Reference Range Interpretation Comments Total Bilirubin (test code = 1975-2) 11.4 0.2-1.2 [facility] LufkinFluoroscopic procedure less than one hour gyzitbpq2160-42-48 05:45:00* Test Item Value Reference Range Interpretation Comments Aspartate Amino Transf (AST/SGOT) (test code = Aspartate Amino Transf (AST/SGOT)) 63 5-[address] [facility] Centererum or plasma alanine aminotransferase measurement (enzymatic activity/volume)2019-09-27 05:45:00* Test Item Value Reference Range Interpretation Comments Alanine Aminotransferase (ALT/SGPT) (test code = 1742-6) 16 0-55 [facility] LufkinAmmonia Afp-lGxl7552-51-01 05:45:00* Test Item Value Reference Range Interpretation Comments Ammonia (test code = 54209-0) 129 31-[address] [facility] Centererum or plasma lactate dehydrogenase measurement (enzymatic activity/volume)2019-09-27 05:45:00* Test Item Value Reference Range Interpretation Comments Lactate Dehydrogenase (test code = 282290902) 160 125-[address] [facility] Centererum or plasma protein measurement (mass/volume)2019-09-27 05:45:00* Test Item Value Reference Range Interpretation Comments Total Protein (test code = 2885-2) 5.8 6.5-8.[address] [facility] Centererum or plasma albumin measurement (mass/volume)2019-09-27 05:45:00* Test Item Value Reference Range Interpretation Comments Albumin (test code = 1751-7) 2.4 3.5-5.0 [facility] Memorial LufkinPlasma globulin measurement (mass/volume) 2019-09-27 05:45:00* Test Item Value Reference Range Interpretation Comments Globulin (test code = 52475-6) 3.4 2.3-3.[address] [facility] Centererum or plasma albumin/globulin mass odwqd7292-67-14 05:45:00* Test Item Value Reference Range Interpretation Comments Albumin/Globulin Ratio (test code = 1759-0) 0.7 0.8-2.[address] [facility] Centererum or plasma alkaline phosphatase measurement (enzymatic activity/volume)2019-09-27 05:45:00* Test Item Value Reference Range Interpretation Comments Alkaline Phosphatase (test code = 6768-6) 147 40-[address] [facility] Centererum or plasma lactate dehydrogenase measurement (enzymatic activity/volume)2019-09-27 05:45:00* Test Item Value Reference Range Interpretation Comments Lactate Dehydrogenase (test code = 997016793) 160 125-220 [facility] LufkinQualitative serum or plasma hepatitis B virus e antibody by enzyme dvyorvynxah6865-45-89 05:45:00* Test Item Value Reference Range Interpretation Comments Hepatitis Be Antibody (test code = 39499-8) Negative Negative Performed at: [facility] [id number] Housing Grant Analyst: Esdras Lemon MD, Phone: [phone] St. [facility] Medical Centererum hepatitis B virus e antigen detection by enzyme immunoassay 2019-09-27 05:45:00* Test Item Value Reference Range Interpretation Comments Hepatitis Be Antigen (test code = 51805-9) Negative Negative Performed at: [address] [id number] Director: Alli Georges MD, Phone: [phone] St[facility] Patients Medical Centererum or plasma lactate dehydrogenase measurement (enzymatic activity/volume)2019-09-27 05:45:00* Test Item Value Reference Range Interpretation Comments Lactate Dehydrogenase (test code = 578150637) 160 125-220 [facility] LufkinQualitative serum or plasma hepatitis B virus e antibody by enzyme bumtusnwqpp8503-71-47 05:45:00* Test Item Value Reference Range Interpretation Comments Hepatitis Be Antibody (test code = 88989-8) Negative Negative Performed at: [facility] Lab[address] [id number] Housing Grant Analyst: Esdras Lemon MD, Phone: [phone] St. [facility] Patients Medical Centererum hepatitis B virus e antigen detection by enzyme immunoassay 2019-09-27 05:45:00* Test Item Value Reference Range Interpretation Comments Hepatitis Be Antigen (test code = 05337-2) Negative Negative Performed at: [address] [id number] Director: Alli Georges MD, Phone: [phone]. Luke's Health – Memorial LufkinUS ABDOMEN LDBEVPYJ2712-64-20 20:45:00 [place] [address] Patient Name: INDRA GALVAN JR MR #: [id number] : 1980 Age/Sex: 38/M Req #: [id number] Adm Physician: KHLOE BOX MD Ordered by: KERVIN FRYE, VIRGILIO FRYE Report #: [id number] Location: MED/SURG Room/Bed: [facility] Procedure: [id number] US /US ABDOMEN COMPLETE Exam Date: 09/26/19 [...] COPY TO: VIRGILIO GALEANA Stool gastrointestinal hemoglobin hkxpmvxtg3578-67-12 19:32:00* Test Item Value Reference Range Interpretation Comments Stool Occult Blood (test code = 2335-8) POSITIVE NEGATIVE [facility] gastrointestinal hemoglobin qnagmyoad5057-00-81 19:32:00* Test Item Value Reference Range Interpretation Comments Stool Occult Blood (test code = 2335-8) POSITIVE NEGATIVE [facility] gastrointestinal hemoglobin qqcxlhrcy1068-18-61 19:32:00* Test Item Value Reference Range Interpretation Comments Stool Occult Blood (test code = 2335-8) POSITIVE NEGATIVE [facility] LufkinBlood macrocytes detection by light xdjjayitus3958-57-39 11:40:00* Test Item Value Reference Range Interpretation Comments Macrocytosis (test code = 738-5) SLIGHT [facility] LufkinAutomated reticulocyte count as percentage of total buuiuhgycrtg6288-72-58 11:40:00* Test Item Value Reference Range Interpretation Comments Percent Reticulocyte Count (test code = 30848-2) 11.2 0.8-[address] [facility] LufkinProthrombin time (PT) in platelet poor plasma by coagulation xziew9133-97-76 11:40:00* Test Item Value Reference Range Interpretation Comments Prothrombin Time (test code = 5902-2) 20.0 11.9-14.5 [facility] Memorial LufkinINR in Platelet poor plasma by Coagulation mmpbd8069-33-80 11:40:00* Test Item Value Reference Range Interpretation Comments Prothromb Time International Ratio (test code = 6301-6) 1.60 Oral Anticoagulant Therapy INR Values:1. Low Intensity Therapy 1.5 - 2.02 . Moderate Intensity Therapy 2.0 - 3.03. High Intensity Therapy(1) 2.5 - 3. 54. High Intensity Therapy(2) 3.0 - 4.05. Panic Value INR > 5.0 [facility] LufkinActivated partial thromboplastin time (aPTT) in platelet poor plasma by coagulation omkkw3685-91-69 11:40:00* Test Item Value Reference Range Interpretation Comments Activated Partial Thromboplast Time (test code = 86417-9) 39.4 23.8-35.[address] [facility] Centererum or plasma conjugated bilirubin measurement (mass/volume)2019-09-26 11:40:00* Test Item Value Reference Range Interpretation Comments Direct Bilirubin (test code = 00632-9) 7.7 0.0-0.[address] [facility] Centererum or plasma indirect bilirubin measurement (mass/volume)2019-09-26 11:40:00* Test Item Value Reference Range Interpretation Comments Indirect Bilirubin (test code = 1971-1) 5.4 0.3-1.[address] [facility] Medical Centererum or plasma creatine kinase measurement (enzymatic activity/volume)2019-09-26 11:40:00* Test Item Value Reference Range Interpretation Comments Creatine Kinase (test code = 2157-6) 22 30-[address] [facility] Medical Centererum or plasma creatine kinase MB measurement (mass/volume)2019-09-26 11:40:00* Test Item Value Reference Range Interpretation Comments Creatine Kinase MB (test code = 70148-3) 0.50 0-5.0 [facility] LufkinTroponin I measurement by highly sensitive enzyme djvvactiqzw4777-92-28 11:40:00* Test Item Value Reference Range Interpretation Comments Troponin I (test code = 30951-8) 0.012 0-0.300 [facility] LufkinBlood cobalamin (vitamin B12) measurement (mass/volume)2019-09-26 11:40:00* Test Item Value Reference Range Interpretation Comments Vitamin B12 Level (test code = 26569-4) 1416 213-283 [facility] LufkinCHEST SINGLE (PORTABLE)2019-09-26 11:24:00 [facility] [address] [place] [address] Patient Name: INDRA GALVAN JR MR #: [id number] : 1980 Age/Sex: 38/M Req #: [id number] Adm Physician: Ordered by: MARYLU KELSEY DO Report #: [id number] Location: ER Room/Bed: Procedure: [id number] DX/CHEST SINGLE (PORTABLE) Exam Date: 09/26/19 Exam [...] CHIANG MD 1125 Transcribed By: CATERINA on 09/26/191124 COPY TO: LAURE MARYLUDO MR, ABDOMEN, AKDQ1035-02-55 12:54:00FINAL REPORT MRI of the abdomen with [...] Rodriguez Verified Date/Time: 05/23/2019 12:54:18 Reading Location: [facility] C013X Ortho Consult Reading Room abdomen with/without [...] fracture of T10 vertebral body. Signed: Gela Rodriguezeport Verified Date/Time: 05/23/2019 12:54:18 Reading Location: [facility] B1 C013X Ortho Consult Reading Room [facility] Metabolic Ngmiw4129-00-78 09:34:00* Test Item Value Reference Range Interpretation Comments Sodium (test code = 2951-2) 139 meq/L 136-145 Potassium (test code = 2823-3) 3.3 meq/L 3.5-5.1 L Chloride (test code = 2075-0) 100 meq/L 98-107 CO2 (test code = 2027-9) 30 meq/L 22-29 H BUN (test code = 3094-0) 25 mg/dL 7-21 H Creatinine (test code = 2160-0) 2.87 mg/dL 0.57-1.25 H Glucose (test code = 2345-7) 112 mg/dL 70-105 H Calcium (test code = 37619-1) 8.5 mg/dL 8.4-10.2 EGFR (test code = 81811-3) 25 mL/min/1.73 sq m ESTIMATED GFR IS NOT ACCURATE CREATININE CLEARANCE IN PREDICTING GLOMERULAR FILTRATION RATE. ESTIMATED GFR IS NOT APPLICABLE FOR DIALYSIS PATIENTS. PHILLIP (test code = PHILLIP) Animal Researcher ID - ROSIANGSpecimen moderately icte waldemar Lab Interpretation (test code = 49840-6) Abnormal [facility] METABOLIC RRAXN6986-72-37 09:34:00* Test Item Value Reference Range Interpretation [...] GFR IS NOT APPLICABLE FOR DIALYSIS PATIENTS. Animal Researcher ID - KAVONGSpeclea moderately ictericHepatic function qfckc7267-69-08 09:29:00* Test Item Value Reference Range Interpretation Comments Protein, Total (test code = 2885-2) 6.5 6.0- 8.3 gm/dL Albumin (test code = 58706-9) 3.4 g/dL 3.5-5 L Total Bilirubin (test code = 1975-2) 5.4 mg/dL 0.2-1.2 H Bilirubin, Direct (test code = 1967-7) 2.6 mg/dL 0.1-0.5 H Alkaline Phosphatase (test code = 6768-6) 200 U/L 40-150 H AST (test code = 1920-8) 46 U/L 5-34 H ALT (test code = 1742-6) 12 U/L 6-55 PHILLIP (test code = PHILLIP) Animal Researcher ID - PORSHAIANGSpecmohann moderately icte waldemar Lab Interpretation (test code = 82109-7) Abnormal [facility] FUNCTION OHOZV8533-47-17 09:29:00* Test Item Value Reference Range Interpretation [...] (test code = 347) 12 U/L 6-55 Animal Researcher ID - ROSIANGSpecimen moderately ictericCBC with platelet count + automated hynj3552-42-69 09:27:00* Test Item Value Reference Range Interpretation [...] K/CU MM L MPV (test code = 42242-2) 8.4 fL 9.4-12.4 L nRBC (test code [...] % 0-1 Lab Interpretation (test code = 86483-2) Abnormal [facility] W/PLT COUNT & AUTO PYVFAYPHCEXC3381-56-63 09:27:00* Test Item Value Reference Range Interpretation [...] code = 2801) 0 % 0-1 Prothrombin time/WEM6566-04-77 09:19:00* Test Item Value Reference Range Interpretation [...] heart valves. Lab Interpretation (test code = 13312-5) Abnormal [facility] HospitalPROTHROMBIN TIME/NIP1987-74-56 09:19:00* Test Item Value Reference Range Interpretation [...] patie nts wiht mechanical heart valves.MISCELLANEOUS LAB JQREB0669-27-35 08:04:00* Test Item Value Reference Range Interpretation Comments SCAN RESULT (test code = 4898857) Treadmill tolerance(Non-Nuclear Treadmill)2019-05-15 22:24:56Interface, External Ris In [...] Sera, Hi pinedo (8216) on 05/15/2019 10:24:47 [facility] Center[facility]ABOLIC PYOQE0967-43-63 11:48:00* Test Item Value Reference Range Interpretation [...] GFR IS NOT APPLICABLE FOR DIALYSIS PATIENTS. Animal Researcher ID - VIDYA MSpecimen slightly ictericBILIRUBIN, EPQTOS2906-76-47 11:32:00* Test Item Value Reference Range Interpretation Comments BILIRUBIN DIRECT (BEAKER) (test code = 706) 2.0 mg/dL 0.1-0.5 H HEPATIC FUNCTION RXEOK2702-58-46 11:32:00* Test Item Value Reference Range Interpretation [...] (test code = 347) 8 U/L 6-55 Animal Researcher ID - VIDYA MSpecimen slightly ictericCBC W/PLT COUNT & AUTO HIENAYOFOKTI0018-19-08 11:30:00* Test Item Value Reference Range Interpretation [...] code = 2801) 1 % 0-1 PROTHROMBIN TIME/TXC9958-98-49 11:25:00* Test Item Value Reference Range Interpretation [...] mechanical heart valves.Body fluid culture + gram tkxnd4207-25-96 15:44:00* Test Item Value Reference Range Interpretation Comments Result (test code = 6463-4) No growth Gram Stain Result (test code = 1123) No organisms seen [facility] + GRAM TLCRL1344-38-74 15:44:00 * Test Item Value Reference Range Interpretation Comments CULTURE (BEAKER) (test code = 1095) No growth GRAM STAIN RESULT (BEAKER) (test code = 1123) 1+ White blood cells seen GRAM STAIN RESULT (BEAKER) (test code = 41834) No organisms seen Iqwsiifrp0812-04-07 06:38:00* Test Item Value Reference Range Interpretation Comments Magnesium (test code = 82900-1) 1.9 mg/dL 1.6-2.6 PHILLIP (test code = PHILLIP) Animal Researcher ID - ULYSSES M Lab Interpretation (test code = 97295-6) Normal [facility] HospitalPhosphorus2020-03-14 06:38:00* Test Item Value Reference Range Interpretation Comments Phosphorus (test code = 2777-1) 3.4 mg/dL 2.3-4.7 PHILLIP (test code = PHILLIP) Animal Researcher ID - ULYSSES M Lab Interpretation (test code = 67192-8) Normal [facility] HospitalPHOSPHORUS2020-03-14 06:38:00* Test Item Value Reference Range Interpretation Comments PHOSPHORUS (BEAKER) (test code = 604) 3.4 mg/dL 2.3-4.7 Animal Researcher ID - ULYSSES ZFFCLHDXUB0736-80-98 06:38:00* Test Item Value Reference Range Interpretation Comments MAGNESIUM (BEAKER) (test code = 627) 1.9 mg/dL 1.6-2.6 Animal Researcher ID - ULYSSES MBlood Culture - Routine (Left Venipuncture)2019-05-09 20:01:00* Test Item Value Reference Range Interpretation Comments Result (test code = 6463-4) No growth in 5 days [facility] HospitalBLOOD HCQIWCA0374-08-33 20:01:00* Test Item Value Reference Range Interpretation Comments CULTURE (BEAKER) (test code = 1095) No growth in 5 days BLOOD VBYICOE4436-19-72 20:00:00* Test Item Value Reference Range Interpretation Comments CULTURE (BEAKER) (test code = 1095) No growth in 5 days Vcuafoor5544-62-91 16:28:00* Test Item Value Reference Range Interpretation Comments Case Report (test code = 104) Medical Cytology Report Case: [id number] Authorizing Provider: Robbie New MD Collected: 05/07/2019 1920 Ordering Location: [place] [address] CCU Received: 05/08/2019 1443 Pathologist: Iman Yang MD Specimen: Pericardial DIAGNOSIS (test code = 3220) p0fupANtVMXsm6sxWOAilUCcQeBmSsUtXlIlRtovgVEpNZjqrrFuVLfkf1JxL5LmIiWiMDdaprTsFNGi MouclikaYDIyKWA0njFiRHSwAVjbDEHaNGycIq1arUGllIroRvQfSZItd3nsqrKEmnhcxIy8x2bfNKEs KxC5zNCzVTzqK7redhZjwKIvNZRjVVi4hO18AHMsyU 1kcBSgPTvjyuIqLeL0IPqtQCVcIrZ5NRAquCRpHJZsO6nxMDIfOPeiYLSiBUgqcNOcHEE4xJyci9Z3iP HhzNKzjFvsNcXtMtUjDOOSz4HpHYy1tUxoH3WcBFOoNwP4bMMrMJWxSXluUIYtXTVlhtG8zM84XJmxaw O9qGWel8Nop23ou469tF1qgBFzWGG1LAQtIWRwiIYs VRPjHQB3BRLkjXVgK0b4RuCazOLdA3Q8YwFekOYfW2X5XxLjhSFwS3K6PfCusWSlPIXrzXUrOm2wyOEa uDAafp9wwf90STN2h6BeuDbhMRA0DEV8UkQzQz2rrYIiDVCtUK1uXnQdgCLuYZNdqr24bMmmTUgbujCp gX8eZfSsGSGvsMTpBZYeRG2ohZReENIkhB0viajrBK YhCiKswttdWNSfeTupxpQlGy1koQerQYT1QPkrF3drpJ3eYeF5MWogK1vgcY5eEVb8WIchaFT8XRSuoP 4cOU9bkdizt3alRrUvDV2xmnzrk7hmVxAaNZ7bxst7g8ieFkLbNQ3sjzcma8huVrCgXVkbDVCejkkfYL Etd8TgbxkwCTKar5JtH8BsfTdcO28fkTdaF24tRUJh xGiauU4orXzhyT9hCwBpEnMzQUumhXwqxDNdpfqpLLlvstTmHRiejajgGZXlSYogY3phQjGrQTNbiQaz EDoob4KgZYArFMSnNsZjYNNCOIXMHjCBPXaaIipBOYPxLAFYUR9QMKcRCzt1EWusxjYnLPFgWIJYODxC FCpHNHEOE8UmUDLNUAwPAR9EXOahFVYnyMHphBzifq FxUXqdc3FlNRfwLVSdQL3acPjqWDNvSB4iXCSyX8uxbO0ntbx1GvLwHMLbRnC1EBNyyzB3Xdd3YKAcIQ cyc4qgd0UnYBNxESu2oStbXvUyRJFfy7noooMiApDoTGFmVULzJHSxpMZuH445e4udl4vcffWbsFO7UI VkNSF8YIqeamPhpgC7NOiejTKcJzP4ZToljdYyKCng kdUxcaViWkr8XCBpV189BXG3eTavx7fdZND3DENwKMXhPnAyNx0lxHKvF801TJWbAYHAECXnwIt9HAZv aoIykqMauMQBk168V121j6xjVLUiwcSffBnCaktxg0wvL797VLBjxZWcolKuCaWhZGRegVZwiNU5BMHn SE2hbmptRTjxKPefHUDwnoR8BOQipMHlS5XgZBBtDI 8hobguNTS7GSadPSBeJCM8MzLjCSOtw6Xefkk4HmFavz9ddz79NNP6q3QbuJvnSUR5QUJ0IzWjWd7lfA LtOVEbXF8pFfZqsVJmXRVtub93bQonPNqzOPX3GCUlpqEsr3Qax6bvCmVphdUkM4fmD7GwIBUnBUMgOL SoKhRefkBdy9Uwr3SksCQzfOy3k2oqIESdOMKeeEnz h0wvLJB5VTFscHSvJ5begV1hPZQdFR5mvqnxl7lwHGkjUZrgURIjsSX9plB2XNZmeBVcE2NlcT6hQRTu GSuzACQkuvt1EtSbYo8vzJTdnIrnXXrrIecsQVnxCGYbeiXrobUxaCgjKNZhFUTwRYfoKKPfSRjaRTTb XGZzMjRccWxcbGFuZzEwMzNcaGljaFxmMVxkYmNoXG YxIArvR1byDwTiWyDwQty8QLGmjYEbNRFoAms2FKKtvESlPQIPsIczrF9wZBThxPtdnS8fpXB6TSWoyy KagLXPbI4lVDHNlI6oMkD1VfBiUlJ9RNLtJOepsYGyhN2= CPT Code(s) (test code = 3357) q3ryzLZbOUFocQTdXqUjKBPgVFWxb5brEKDkzZNxHlTsRgKoUmSfFovugFKoBZHtHzJzv0rsi886rIZz g1zvIEGyLaP4fTKvXTYrvCMdK139f2xvy2ziurBuuMQ3ZCDpCKV1JNxhiuXfgwS9SDxujQCmYdQ7QUcd nfMqALubhxWlhyZlGcu1ZBCoZ336CPD6pMuyu8eiPZ K7MNMsMGAlVgFyKm5ntYCsH356OHZeAZFFSOKzrFi7VAIskwAitvEwuDVRo360D294v5lpXMYmtmMvjV dKpishj9rkY373ANZwpZMvspGrShBqJLDmqZZroJE8OLTiXK4okxnxHuVzEB2dqdkgGfPqRB1irra7Ek HbOJ4ztrzrCkGtAOgsCRFeogucBJHia8DepfzfPG4q X0Pfm9F0nO9ewYHeNXJkeXYoIsDxVDIemt2ffEVoCNfso7PpFWN9ixY8rPUghDMpIAUxDT74Jlonx8Xb CljzDCO8PNMvisLzi4Ygu6amBmKqioCeN8fsN7SkAKBeSHWmFKZoLtSlxeUla3Mhd0HbuDBamGw5u7yq BMJdBFNeoCrrk1pbZDE3NINwO8E3dGHvu2jaLJtkAC TyhXV6hkqcZUnqKMZclqL4xmfkVYwoMUUszWC8noweFYokBOLyQgK6ndfzJMljFPXfKMN4EZxvz020NS Z6YGbdPdkpRSigFMRovfKfxbNmoTuvPQElJBYoTTzuUIEaHKpsMGUpDZMgTfPcoNkcdZbdrC8yIvDcZd VlUJjhAE3qFCPgB9rbqSGkEKFdWNYiU4xlIoMtuK1noYumEGpwtfJwTBu2GXS7NSJyla8= CLINICAL DATA (test code = 3355) v7skiHYxDBWtzLHcMkFmCBGyFASmt7ppANQdrOSlUkMuRqLsYpHdCbxlmREkRBNcYnOnx7lnk815fAQp m8vkMLPxYrJ1kDCtOMZopVUlJ173x4xsr7wjqaQcgVX9EDUpFPI0WFmfngGacdS5UJrdqBDzLaD8ZKtj vsMvBLynutGtrfQtMgz3SZNfI541HUC8bYjky1iuDH W6HAZbTUGqZcOhJb5xxLWsE465KNXaYSFUCOVuvTs2JUJspsPocgKxaQVXp969L521k7puTVKcogZydE bIyhlpp2suY166ETXltUSlsjBgAiQxOSYoxIDgkHC7OHBlAZ0jlxspAxBzSV1nuwiiBySlBM1kjcw8Le DcTN7tueqxToXwAVygLDFndcvnPNEvq5UepaivXG2b E2Yzk7D2yJ0hqGDdOPKxuLKyCpZtPKHjlf1cwMTfMUqwy4ImALZ7hbL4nUSosLHpFXAkIY11Lqtun8Vk TdmcZHH2AWErknSfn6Hsh3wxJnIoiuVlS9dvQ6MqAAEvVWOwZPKbLnZafaIfl9Sfe7EyuTUwiNa1z8dg FRRtHFOytVvzo7lhRQR3HQYuX7S9wGYou2xvAJxqGU TifVA4exmsJZadSQOqezX6kmhqMTsgOUYxwPJ3gzmjBAjqJETiLfR4yrpfDOlxYMDkREN0GSdzu535IG B6BAdbVzcgGZbuKXMikcUudyRamOugSOBdKFCqPWihNKJjLQmsQKJpFXDmYyGcfBfpkGnxsJ5cSmNdMv UaPTxpYH1sLBJlF9qrfIWzRNUcYEIuW3vbIjVoyT4v oFlaSXmgsxWlVQMtwosfGGHxhFEcCUTnFrJcjQ5nAFOpnMPmeF6ikOPzaOBckC== SPECIMEN SOURCE (test code = 3377) l2ideBMrCITpyMDrFlGpXKQeHUCgd8akXKGdbAHpMlGwDqEvHvPoIujwrCRtJHOlCcWdl6vty577dISa k4amNOZlNlO8iSUnHFRfnVIgA676y8ldy7sbnmKbnDV6LHVxJCF2CCrbduNgkvM3LZybgSNkLgZ4SDfq ljIbKRexnnQvbiXhPqm4JDAyE101BRO3bXrps7bfQK C3LXFsVCMjCvQeWe3ctTKaW344UZJgDIKBKGDghZb2LDRdlmMdzaSxpAEYa594A923z4asPXQbwgHruO qQabsyy4bbZ603XPIjmGAeewCvJpFySZNpvLGmgGH1KCXwZE5trhraWhLvBP9xasooXsSlUB5leqd1Zn ToYD4fkmpjQnIhWOtyKUWfvnadAEHpn6TaablbDS1y B7Hem2E4mJ4iyKVtUOAktTNkSzGuQEHjim1qxMKxODnod4XoKVF6cmH2rAWwdORiLKSwIG01Qssmd7Oj HtqaFOF3MRCtsrGor3Uxg1jrApKoqdNjL3ekU0IrUQOgQLTfAIAbVbQnzsIcf2Vjb2FkyAAhfNq1d2jv NALlAMUrhXitl0seCUB3KLQaI9X2vHEiv2lkDUhtKJ TrlMB9vsvaGVxhZNEwzhG6admkNEjuQWHrrPO9mlvzSBicZNMwWqG2naagWSnlJWCjJXA4XXqgv614VY I1SBxgSjrcKAdtCUQansMyrfQomGksIRXhLPGkBIbaGQXoRRmpPYPvAXSbQoHvjZgurRkggK7rJxCkXi XmPYksCT2uCVZtL2pynUArEIRgIWRsG9kxKpTymB0u aFxmMFxmczIwIFBFUklDQVJESUFMIEZMVUlEXHBhcn0= GROSS DESCRIPTION (test code = 3366) v8rocNCaDKOucLHpHaHlRSMpFAGjz7tkTWZkdJNrHiAgHiBlDqKlPqkhgAVmXAQiCfQef1gpc759yXDm x7llQQZbByJ8cCFpAZOpwOTxP449YNSnGHktr7kyd0NxCICeyGFyn9Y6CUYQtthtaIq5kHndR66kz6W8 InyoR7zmFJJzPUXyA6JqVO3wMLAdAek9RUQ4EHZ6YB SuXLPnV9YxOK7aEVBkmGQoVHw6v7rqbChnPJWoQXP5p4xyWIohriVvPX2fkl4stCe1c8hjowKgTHEgHL UskBAGFXZzV4PpuShrLz4jbDl1mKjuVithDZD5Xqg5LK8icq38aob9xZqwXKIhawfjLbD6OKyjXSBjqr tqMOk0QYbyGAOcyVqsNSjiZZAxbqcqJKpdKSFnvQis SYrzMYSfZewgAXowWCNsTXF3HWywj455QSP4HZxnf5ovd7decGTaGfj2ZVUyPxBtRibtZAphg4Ijh9rf FZVvlx0xPJB4mUJshIfed1U3gBRiUKEtaEFehrEzJNHlChL6FFhwQW9spz09ZIPiWOP7eu1tdKDpwFxr wnKdzQHxNIhiL2OoURTet004HWVsR1XpUZOqr7S8yp YbGgNeFIApjTC3cgC3YNVcWUs4lSWzjwY7dnIsvUWwA2sieS11FrGwfZJuL4ArfZ79QrXzaVSvJ5RthV 60CdCxyUDyG6EuwS72ThZrrQMgDTEbnDAzKh2bxBPjxYHvg0CrfYNvRGzzF53gb345LUFvtrZzK4bzwN YuarnbgRJmxasjRHbzkuO2SSXxZXWrHMgkPHEvIYHm YnLkiOLsRnWyFoYeuHgitGniKVcwRqFiIHTyMPvwG1ssPjNqDtSnNcZ7KOAfpPzsWMUlu65jvNFguDYz GWjbXDGjdFDgw1RwebDvnYLeLETwwSqxI5XsWPnjCEMaYYJdLQEsoeIVQWVyqISzAGxkZABoHiNgGWPf cn0= STATEMENT OF ADEQUACY (test code = 2757) Satisfactory Gross assessment was performed at (test code = 2777) [facility], Department of Pathology, [address] [place] [address]26, Technical component was performed at (test code = 2778 ) [facility], Department of Pathology, [address] [place] [address] 33994, Professional component was performed at (test code = 2 779) [facility], Department of Pathology, [address] [place] [address], [facility] 16:28:00Medical Cytology Report Case: [id number] Authorizing Provider: Robbie New MD Collected: 05/07/2019 1920 Ordering Location: [place] [address] CC Received: 05/08/2019 1445 Pathologist: Iman Yang MD Specimen: Pericardial PERICARDIAL FLUID (CYTOSPINS): - NEGATIVE FOR MALIGNANCY Signing Pathologist Direct Phone Line: [phone] signed by Iman Yang MD on 05/09/2019 at 4:28 [id number] effusion, cirrhosisPERICARDIAL HEDLJ765 mls bloody fluid; 4 cytospinsCollected: 031 120Received: [id number] [facility], Department of P athology, [address] [place] [address], [facility], [facility] of Pathology, [address] [place] [address] 77 030, [facility], Department of Pathology, [address] [place] [address], ARE/CT, CARDIAC PERF REST AND [id number] 16:05:00Reason for exam:->CADFINAL REPORT PROCEDURE: MYOCARDIAL PERFUSION PET IMAGING (Rest/Stress)CPT CODE: 94503 INDICATION: Assess symptoms/risk factors of possible CAD [...] Verified Date/ Time: 05/09/2019 16:05:35 Reading Location: [place] [id number] Myocardial Perfusion Pet/CT (Rest & Stress)2019-05-09 16:05:00Interface, External Ris In - 05/09/2019 4:07 PM CDTFINAL REPORT PROCEDURE: MYOCARDIAL PERFUSION PET IMAGING (Rest/Stress)CPT CODE: 70004 INDICATION: Assess symptoms/risk factors of possible CAD [...] MDReport Verified Date/Time: 05/09/2019 16:05:35 Reading Location: [address] Reading [facility] [id number] 06:54:00* Test Item Value Reference Range Interpretation Comments Protein, Total (test code = 2885-2) 6.1 6.0- 8.3 gm/dL Specimen slightly hemolyzed Albumin (test code = 91156-4) 2.9 g/dL 3.5-5 L Specimen slightly hemolyzed Alkaline Phosphatase (test code = 6768-6) 116 U/L 40-150 Total Bilirubin (test code = 1975-2) 4.1 mg/dL 0.2-1.2 H Specimen slightly hemolyzed Sodium (test code = 2951-2) 131 meq/L 136-145 L Potassium (test code = 2823-3) 3.9 meq/L 3.5-5.1 Specimen slightly hemolyzed Chloride (test code = 2075-0) 99 meq/L 98-107 CO2 (test code = 2028-9) 23 meq/L 22-29 BUN (test code = 3094-0) 22 mg/dL 7-21 H Creatinine (test code = 2160-0) 4.22 mg/dL 0.57-1.25 H Specimen slightly hemolyzed Glucose (test code = 2345-7) 108 mg/dL 70-105 H Calcium (test code = 88384-8) 8.1 mg/dL 8.4-10.2 L AST (test code = 1920-8) 30 U/L 5-34 Spe cimen slightly hemolyzed ALT (test code = 1742-6) 8 U/L 6-55 Spe cimen slightly hemolyzed EGFR (test code = 33605-8) 16 mL/min/1.73 sq m ESTIMATED GFR IS NOT ACCURATE CREATININE CLEARANCE IN PREDICTING GLOMERULAR FILTRATION RATE. ESTIMATED GFR IS NOT APPLICABLE FOR DIALYSIS PATIENTS. PHILLIP (test code = PHILLIP) Animal Researcher ID - ULYSSES MSpecimen slightly icteric Lab Interpretation (test code = 91444-3) Abnormal [facility] [id number] 06:54:00* Test Item Value Reference Range Interpretation [...] GFR IS NOT APPLICABLE FOR DIALYSIS PATIENTS. Animal Researcher ID - ULYSSES MSpecimen slightly ictericCBC W/PLT [...] (test code = 2801) 1 % 0-1 [id number] 06:50:00* Test Item Value Reference Range Interpretation Comments MAGNESIUM (BEAKER) (test code = 627) 2.1 mg/dL 1.6-2.6 Specimen slightly hemolyzed Animal Researcher ID - ULYSSES [id number] 06:50:00* Test Item Value Reference Range Interpretation Comments PHOSPHORUS (BEAKER) (test code = 604) 3.4 mg/dL 2.3-4.7 Specimen slightly hemolyzed Animal Researcher ID - ULYSSES MLimited 2D [id number] 13:37:26Ejection FractionSLEH ECHO HEARTLAB MKCKESSON CPACSInterface, External Ris In - 05/08/2019 1:37 PM CDTTransthoracic Echocardiography Report (TTE) Demographics Patient Name INDRA GALVAN Date of Study 05/08/2019 YAN SONFredy Gender Male Visit Number [id number] Race Unknown Room Number 6213 Number Date of 1980 Referring Physician ROBBIE NEW Age 38 year(s) Erp Analyst Renny Yepez Mrp Controller Nick Navarro I nterpreting Brandy Jackson MD [...] signed by Vic Caruso MD([facility]) on 05/08/2019 01:37 PM Findings Technical Quality: Technically adequate e xam. Left Ventricle Normal left ventricular chamber size. Normal wall thickness. Normal overall left ventricular systolic function. No apparent segmental wall motion abnormalities. Estimated LVEF by qualitative assessment is normal (>60%) . Left Atrium LA size is ahif-av-oprcaecwwk enlarged . Right Ventricle Normal right ventricle [...] Root S of Yasmin.: 3.23 cm [facility] W/Doppler(CW/PW/Color)2019-05-08 09:47:52Ejection FractionSLEH ECHO HEARTLAB MKCKESSON CPACSInterface, External Ris In - 05/08/2019 9:48 AM CDTTransthoracic Echocardiography Report (TTE) Demographics Patient Name INDRA GALVAN Date of Study 05/07/2019 YAN CORDERO Gender Male Visit Number [id number] Race Unknown Room Number 6213 Number Date of 1980 Referring Robbie New MD Physician Age 38 year(s) Erp Analyst Aneudy Jerez Interpreting Physician MELVA Jackson Fellow [...] A moderate-large circumferential pericardial effusion is present. [facility] CenterManual [id number] 07:53:00* Test Item Value Reference Range Interpretation [...] 3438) Adequate PHILLIP (test code = PHILLIP) Animal Researcher ID - Ivonne Espinal comments: Slide comm ents: Lab Interpretation (test code = 11704-3) Abnormal [facility] W/PLT COUNT & AUTO [id number] 07:53:00* Test Item Value Reference Range Interpretation [...] (CELLAVISION)(BEAKER) (test code = 3438) Cheryl quate Animal Researcher ID - Ivonne Espinal comments: Slide comments: [id number] 04:01:00* Test Item Value Reference Range Interpretation Comments Procalcitonin (test code = 10787-4) 3.64 ng/mL <0.05 H PHILLIP (test code = PHILLIP) SEPSIS RISK (ng/mL)Low: 0.05-0.50Intermediate: 0.51-2.00High: >=2.01 Lab Interpretation (test code = 05575-5) [facility]normal [facility] HospitalSteqzeXRKHLRJMSKPMD1698-23-38 04:01:00* Test Item Value Reference Range Interpretation Comments PROCALCITONIN (BEAKER) (test code = 3036) 3.64 ng/mL <0.05 H SEPSIS RISK (ng/mL)Low: 0.05-0.50Intermediate: 0.51-2.00High: > =2.01BASIC METABOLIC [id number] 03:47:00* Test Item Value Reference Range Interpretation [...] GFR IS NOT APPLICABLE FOR DIALYSIS PATIENTS. Animal Researcher ID - LAUREN WSpecimen moderately kjxomouGTZZYNICKA4548-76-84 03:44:00* Test Item Value Reference Range Interpretation Comments PHOSPHORUS (BEAKER) (test code = 604) 2.2 mg/dL 2.3-4.7 L Animal Researcher ID Tanja AGUILAR AUYCLWVWQV1569-06-04 03:44:00* Test Item Value Reference Range Interpretation Comments MAGNESIUM (BEAKER) (test code = 627) 1.8 mg/dL 1.6-2.6 Animal Researcher ID - LAUREN WPrepare Leuko-Red [id number] 23:54:00* Test Item Value Reference Range Interpretation Comments CROSSMATCH (test code = 2264) COMPATIBLE Unit ABO (test code = 5363742) B Pos UNIT NUMBER (test code = 934-0) [id number] Status (test code = 9216633) TX_TIMEINCHART Blood Bank Product (test code = 2263) RED BLOOD CELLS PRODUCT CODE (test code = 933-2) [id number] [facility] HospitalCarotid doppler uhueekcrr3507-21-38 16:57:29 Ejection FractionSLEH ECHO HEARTLAB MKCKESSON CPACSRight Impression1. The safety intern al carotid artery is within normal limits.2. The external carotid artery is with in normal limits.3. The common carotid artery is within normal limits.4. The viet tebral artery flow is antegrade and normal.5. [...] CDTPV LAB - Carotid Duplex Study [facility] Name INDRA GALVAN Date of Study 05/06/2019 YAN CORDERO Age 38 Visit Number [id number] Gender Male Accession Elizabeth tinajero [id number] Date of 1980 Referring Radha Carranza Room Number 1213 Physician SARAH Erp Analyst Cb Maki S Interpreting Karen Blackwell, Physician [...] + + + - There is antegrade viet tebral flow noted on the right side. [...] ! ! ! !+ +----+----+-----+ + + +!Viett ebral !76.2!17.3!60 ! ! ! !+-------- -------+----+----+-----+ + + +!Prox Subclav rosario!187 ! !60 ! ! ! !+ + ----+----+-----+ + + + - There is antegrad e vertebral flow noted on the left side. - Additional Measurements:ICAPSV/CCAPS V 0.96.ICAEDV/CCAEDV 1.42.[facility] W/PLT COUNT & AUTO CNTVJAXAIKBT1297-38-89 11:24:00* Test Item Value Reference Range Interpretation [...] (CELLAVISION)(BEAKER) (test code = 3438) Cheryl quate Animal Researcher ID - Marcella OverholtUser comments: Slide comments: COMPREHENSIVE METABOLIC [id number] 07:21:00* Test Item Value Reference Range Interpretation [...] GFR IS NOT APPLICABLE FOR DIALYSIS PATIENTS. Animal Researcher ID - ULYSSES MSpecimen slightly ktkrakh1Q Echo W/Doppler(CW/PW/Color) 2019-05-06 15:24:38Ejection FractionSLEH ECHO HEARTLAB MKCKESSON CPACSInterface, External Ris In - 05/06/2019 3:24 PM CDTTransthoracic Echocardiography Report (TTE) Demographics Patient Name INDRA GALVAN Date of Study 05/06/2019 YAN CORDERO Gender Male Visit Number [id number] Race Unknown Room Number 2454 Number Date of 1980 Referring Robbie New MD Physician Age 38 year(s) Erp Analyst Aneudy Jerez Mrp Controller Joanna Whitley Interpreting Pratik Alexis MD Procedure [...] Velocity: 2.75 m/s TR Gradient: 30.26 mmHg [facility] HospitalUrine ecpjrtp0864-04-40 10:47:00* Test Item Value Reference Range Interpretation Comments Result (test code = 6463-4) <10,000 col/mL skin chase [facility] HospitalCBC W/PLT COUNT & AUTO HXXWWPXPZQPK9829-07-37 09:56:00* Test Item Value Reference Range Interpretation [...] (CELLAVISION)(BEAKER) (test code = 3438) Cheryl quate Animal Researcher ID - Giselle Quiñones comments: Slide comments: WBC: SEGMENTED WI TH TOXIC GRANULATIONS PRESENT ECG 12 oumn9167-40-07 06:34:13Interface, External Ris In - 05/06/2019 6:34 AM CDTVentricular Rate 128 BPMAtrial Rate 89 BPMQRS Duration 94 msQ-T Interval 336 msQTC Calculation(Bazett) 490 msR [place] 151 degreesT [place] -88 degreesAtrial fibrillationLeft posterior fascicular blockST & T wave abnormality, consider inferior ischemiaST & T wave abnormality, consider anterolateral ischemiaAbnormal ECGWhen compared with ECG of 05-MAY-2019 20:52,Atrial fibrillation PresentInverted T waves have replaced nonspecific T wave abnormality in Inferior leadsInverted T waves have replaced nonspecific T wave abnormality in Anterolateral leadsConfirmed by MD CHELA, INDRA Simon ([id number]) on 05/06/2019 6:34:11 [facility]COM[facility] [id number] 06:25:00* Test Item Value Reference Range Interpretation [...] GFR IS NOT APPLICABLE FOR DIALYSIS PATIENTS. Animal Researcher ID - ULYSSES MSpecimen moderately bpugdphHOCYLCHUB1884-92-09 06:24:00* Test Item Value Reference Range Interpretation Comments MAGNESIUM (BEAKER) (test code = 627) 1.9 mg/dL 1.6-2.6 Animal Researcher ID - ULYSSES MBASIC METABOLIC YFBQW3931-48-03 21:58:00* Test Item Value Reference Range Interpretation [...] GFR IS NOT APPLICABLE FOR DIALYSIS PATIENTS. Animal Researcher ID - BSSpecimen moderately ictericTroponin [id number] 21:56:00* Test Item Value Reference Range Interpretation Comments Troponin I (test code = 63625-9) <0.01 0-0.03 PHILLIP (test code = PHILLIP) [...] failure, acidosis, acute neurological disease, and persistent tachyarrhythmia.Animal Researcher ID - BS Lab Interpretation (test code = 28464-2) Normal [facility] HospitalTROPONIN [id number] 21:56:00* Test Item Value Reference Range Interpretation [...] acidosis, acute neurological disease, and per sistent tachyarrhythmia.Animal Researcher ID - KYUHYTRXCIZ4982-78-80 21:49:00* Test Item Value Reference Range Interpretation Comments MAGNESIUM (BEAKER) (test code = 627) 1.8 mg/dL 1.6-2.6 Specimen slightly hemolyzed Animal Researcher ID - BSCBC W/PLT COUNT & AUTO JQPFASNERYQE9433-37-73 21:32:00* Test Item Value Reference Range Interpretation [...] 2801) 1 % 0-1 Hepatitis B surface hepadkb3661-27-08 17:35:00* Test Item Value Reference Range Interpretation Comments HBsAg Screen (test code = 5195-3) Nonreactive Nonreactive PHILLIP (test code = PHILLIP) Animal Researcher ID - BS Lab Interpretation (test code = 20033-1) Normal [facility] HospitalHEPATITIS B SURFACE [id number] 17:35:00* Test Item Value Reference Range Interpretation Comments HEPATITIS B SURFACE ANTIGEN (2) (BEAKER) (test code = 2585) Nonreactive Nonreactive Animal Researcher ID - BSOccult blood, wvbcc9649-01-68 14:45:00* Test Item Value Reference Range Interpretation Comments Occult blood (test code = 2335-8) Negative Negative Lab Interpretation (test code = 25808-2) Normal [facility] HospitalOCCULT BLOOD, [id number] 14:45:00* Test Item Value Reference Range Interpretation Comments FECAL OCCULT BLOOD (BEAKER) (test code = 618) Negative Negative Yinhyndb1348-22-90 10:41:00* Test Item Value Reference Range Interpretation Comments Ferritin (test code = 2276-4) 1081 ng/mL 5-275 H PHILLIP (test code = PHILLIP) Animal Researcher ID - AAHAMID Lab Interpretation (test code = 39340-7) Abnormal [facility] HospitalFERRITIN2020-03-09 10:41:00* Test Item Value Reference Range Interpretation Comments FERRITIN (BEAKER) (test code = 361) 1081 ng/mL 5-275 H Animal Researcher ID - AAHAMIDDirect AHG (LUMA)/Direct Zmsuzi3390-38-09 10:38:00* Test Item Value Reference Range Interpretation Comments Direct AHG-IGG (test code = 1006-6) NEGATIVE Direct AHG-C3B, C3D (test code = 1003-3) NEGATVIE [facility] HospitalABORH, facgeg5729-22-42 10:28:00* Test Item Value Reference Range Interpretation Comments ABO Grouping (test code = 2588) B Rh Factor (test code = 2589) POS [facility] HospitalCOMPREHENSIVE METABOLIC [id number] 10:25:00* Test Item Value Reference Range Interpretation [...] GFR IS NOT APPLICABLE FOR DIALYSIS PATIENTS. Animal Researcher ID - ORZINA LSpecimen moderately ictericIron, TIBC, % sat. (without ferritin)2019-05-05 10:21:00* Test Item Value Reference Range Interpretation Comments Iron (test code = 2498-4) 88.0 ug/dL 40-160 TIBC (test code = 2500-7) 130 ug/dL 250-450 L Iron % Saturation (test code = 2502-3) 68 % 20-55 H PHILLIP (test code = PHILLIP) Animal Researcher ID - ROZINA L Lab Interpretation (test code = 62463-3) Abnormal [facility] HospitalIRON, TIBC, % SAT. (WITHOUT FERRITIN)2019-05-05 10:21:00* Test Item Value Reference Range Interpretation Comments IRON (BEAKER) (test code = 547) 88.0 ug/dL 40.0-160.0 TOTAL IRON BINDING CAPACITY (BEAKER) (test code = 769) 130 ug/dL 250-450 L IRON % SATURATION (2) (BEAKER) (test code = 2590) 68 % 20-5 5 H Animal Researcher ID - ROZINA LBILIRUBIN, [id number] 10:20:00* Test Item Value Reference Range Interpretation Comments BILIRUBIN DIRECT (BEAKER) (test code = 706) 3.0 mg/dL 0.1-0.5 H Animal Researcher ID - ROZINA LCBC W/PLT COUNT & AUTO [id number] 10:08:00* Test Item Value Reference Range Interpretation [...] code = 2801) 1 % 0-1 Reticulocyte wpxsv9082-14-12 10:04:00* Test Item Value Reference Range Interpretation Comments % Retic (test code = 78208-0) 2.3 % 0.5-1.8 H PHILLIP (test code = PHILLIP) Animal Researcher ID - 6000 Lab Interpretation (test code = 74365-0) Abnormal [facility] HospitalRETICULOCYTE [id number] 10:04:00* Test Item Value Reference Range Interpretation Comments RETICULOCYTE COUNT PCT (BEAKER) (test code = 575) 2.3 % 0.5- 1.8 H Animal Researcher ID - 6000Lactic acid, pyyohf9568-33-52 00:50:00* Test Item Value Reference Range Interpretation Comments Lactate, Venous (test code = 2872) 2.6 mmol/L 0.5-2.2 H PHILLIP (test code = PHILLIP) Animal Researcher ID - PIAYA LSpecimen slightly icteri c Lab Interpretation (test code = 36932-2) Abnormal [facility] HospitalLACTIC ACID, [id number] 00:50:00* Test Item Value Reference Range Interpretation Comments LACTATE BLOOD VENOUS (2) (BEAKER) (test code = 2872) 2.6 mmol/L 0 .5-2.2 H Animal Researcher ID - PIAYA LSpecimen slightly ictericStrep pneumoniae dxupmsf5352-61-07 21:50:00* Test Item Value Reference Range Interpretation Comments Strep pneumoniae Antigen (test code = 86134-6) Presump tive negative for pneumococcal pneumonia - [...] the test. Lab Interpretation (test code = 68794-2) Normal [facility] HospitalTREP PNEUMONIAE [id number] 21:50:00* Test Item Value Reference Range Interpretation [...] detection limit of the test. Legionella antigen, kpwkv1864-77-21 21:49:00* Test Item Value Reference Range Interpretation Comments Legionella Urine Antigen (test code = 03878-4) Negative - see comme nt Negative for L. pneumophila serogroup 1 antigen, suggesting no recent or current infection with this serogroup. Legionellosis cannot be ruled out since other serogroups and species may cause disease. [facility] HospitalLEGIONELLA ANTIGEN, [id number] 21:49:00* Test Item Value Reference Range Interpretation Comments L. PNEUMOPHILA SEROGP 1 UR AG (NEETU) (test code = 11 56) Negative - [...] Ab Scrn (test code = 890-4) NEGATIVE [facility] HospitalPROCALCITONIN2020-03-08 20:32:00* Test Item Value Reference Range Interpretation Comments PROCALCITONIN (GAURAVAKER) (test code = 3036) 14.51 ng/mL <0.05 HH SEPSIS RISK (ng/mL)Low: 0.05-0.50Intermediate: 0.51-2.00High: > =2.01Urinalysis w/Microscopic + Reflex to Iz[place]pok0433-64-47 20:25:00* Test Item Value Reference Range Interpretation Comments Color, UA (test code = 5778-6) Yellow Clarity, UA (test code = 5767-9) Hazy Specific [place], UA (test code = 5811-5) 1.011 1.001-1.035 pH, UA (test code = 5803-2) 5.5 5.0-8.0 Protein, UA (test code = 37130-5) 100 mg/dL Negative A Glucose, UA (test code = 365) 100 mg/dL Negative A Ketones, UA (test code = 2514-8) Negative Negative Bilirubin, UA (test code = 49772-0) Negative Negative Blood, UA (test code = 79114-9) Negative Negative Nitrite, UA (test code = 5802-4) Negative Negative Leukocytes, UA (test code = 5799-2) Negative Negative Urobilinogen, UA (test code = 69386-2) 0.2 mg/dL 0.2-1 RBC, UA (test code = 16445-8) 7 /HPF WBC, UA (test code = 5821-4) 12 /HPF Bacteria, UA (test code = 55252-7) Occasional Mucus (test code = 8247-9) Rare Squam Epithel, UA (test code = 08477-9) 18 /HPF Hyaline Casts, UA (test code = 48151-9) 78 /LPF Casts (test code = 9842-6) 70 /LPF Crystals, Urine (test code = 74703-7) Occasional Yeast (test code = 59963-1) Moderate Specimen Source (test code = 2795) PHILLIP (test code = PHILLIP) Animal Researcher ID - [auto]Animal Researcher ID - tech Lab Interpretation (test code = 58270-9) Abnormal [facility] HospitalURINALYSIS W/ REFLEX URINE [id number] 20:25:00* Test Item Value Reference Range Interpretation [...] 1585) Moderate SOURCE(BEAKER) (test code = 2795) Animal Researcher ID - [auto]Animal Researcher ID - techPT/tMMR0341-99-06 20:11:00* Test Item Value Reference Range Interpretation Comments Protime (test code = 5902-2) 18.9 11.9- 14.2 seconds H INR (test code = 6301-6) 1.6 <=5.9 PTT (test code = 15341-1) 40.7 22.5- 36.0 seconds H PHILLIP (test code = PHILLIP) Effective 07/24/2018: PT Refe rence Range ChangeNew: 11.9- 14.2 Previous: 11.7-14.7 RECOMMENDED COUMADIN/WARFARIN INR THERAPY RANGESSTANDARD DOSE: 2.0-3.0 Includes: PROPHYLAXIS for venous thrombosis, sys temic embolization; TREATMENT for venous thrombosis and/or pulmonary embolus.HIGH RISK: Target INR is 2.5-3.5 for patients wiht mechanical heart valves. Lab Interpretation (test code = 13584-5) Abnormal [facility] HospitalPT/[id number] 20:11:00* Test Item Value Reference Range Interpretation [...] Range Interpretation Comments BNP (test code = 20594-8) 612 pg/mL 0-100 H PHILLIP (test code = PHILLIP) Animal Researcher ID - DB Lab Interpretation (test code = 71162-8) Abnormal [facility] HospitalRapid Influenza A&B Csdqit1156-64-57 20:00:00* Test Item Value Reference Range Interpretation Comments Rapid Influenza A Antigen (test code = 88549-9) Negative Negative, Inconclusive Rapid influenza B Antigen (test code = 67113-3) Negative Negative, Inconclusive Lab Interpretation (test code = 04415-3) Normal [facility] HospitalB-TYPE NATRIURETIC FACTOR (BNP)2019-05-04 20:00:00 * Test Item Value Reference Range Interpretation Comments B-TYPE NATRIURETIC PEPTIDE (BEAKER) (test code = 700) 612 pg/mL 0-100 H Animal Researcher ID - DBTROPONIN M7793-55-54 20:00:00* Test Item Value Reference Range Interpretation [...] acidosis, acute neurological disease, and per sistent tachyarrhythmia.Animal Researcher ID - DBRAPID INFLUENZA A&B SQDATO9008-45-69 20:00:00* Test Item Value Reference Range Interpretation Comments RAPID INFLUENZA A AG (BEAKER) (test code = 1622) Negative Negative, Inconclusive RAPID INFLUENZA B AG (BEAKER) (test code = 1623) Negative Negative, Inconclusive FGBZIXVEMF2238-37-83 19:54:00* Test Item Value Reference Range Interpretation Comments PHOSPHORUS (BEAKER) (test code = 604) 2.9 mg/dL 2.3-4.7 Animal Researcher ID - ECHINSTZWVL6386-65-63 19:54:00* Test Item Value Reference Range Interpretation Comments MAGNESIUM (BEAKER) (test code = 627) 2.0 mg/dL 1.6-2.6 Animal Researcher ID - DBCOMPREHENSIVE METABOLIC [id number] 19:54:00* Test Item Value Reference Range Interpretation [...] GFR IS NOT APPLICABLE FOR DIALYSIS PATIENTS. Animal Researcher ID - DBSpecimen slightly ictericCBC W/PLT COUNT [...] = 2801) 1 % 0-1 LACTIC ACID, [id number] 19:48:00* Test Item Value Reference Range Interpretation Comments LACTATE BLOOD VENOUS (2) (BEAKER) (test code = 2872) 2.7 mmol/L 0 .5-2.2 H Specimen slightly hemolyzed Animal Researcher ID - DBSpecimen slightly ictericCRITICAL [id number] 18:47:50Jimena Calhoun MD 05/04/2019 9:12 PMCritical CarePerformed by: Jimena Calhoun MDAuthorized by: Jimena Calhoun MD Total critical care time: 59 [...] condition and r eview of old charts. [facility] HospitalRAD, CHEST, 1 VIEW, NON DEPT 2019-05-04 18:08:00Reason for exam:->weaknessShould this be performed at the bedside?->YesFINAL REPORT EXAM: Chest one view COMPARISON: December 22, 2018 Clinical history: Weakness FINDINGS: There is persistent cardiomegaly. There is interval improvement in pulmonary edema. The right internal jugular chest tunneled dialysis catheter appears unchanged in position. The regional osseous structures are unremarkable Signed: Samara Hainesort Verified Date/Time: 05/04/2019 18:08:08 Reading Location: [address] Transitional Reading Room chest 1 view portable / fjociad2020-22-91 18:08:00Interface, External Ris In - 05/04/2019 6:10 PM CDTFINAL REPORT EXAM: Chest one view COMPARISON: December 22, 2018 Clinical history: Weakness FINDINGS: There is persistent cardiomegaly. There is interval improvement in pulmonary edema. The right internal jugular chest tunneled dialysis catheter appears unchanged in position. The regional osseous structures are unremarkable Signed: Sadiq Haines MDReport Verified Date/Time: 05/04/2019 18:08:08 Reading Location: [address] Transitional Reading Room [facility] METABOLIC [id number] 11:09:00* Test Item Value Reference Range Interpretation [...] GFR IS NOT APPLICABLE FOR DIALYSIS PATIENTS. Animal Researcher ID - LMSpecimen slightly ictericHEPATIC FUNCTION DMTBU0237-74-41 11:04:00* Test Item Value Reference Range Interpretation [...] (test code = 347) 12 U/L 6-55 Animal Researcher ID - LMSpecimen slightly ictericPROTHROMBIN TIME/CWP5880-11-23 10:47:00 * Test Item Value Reference Range [...] mechanical heart valves.CBC W/PLT COUNT & AUTO DMZEVBNKCIPU2005-40-15 10:40:00* Test Item Value Reference Range Interpretation [...] = 2801) 0 % 0-1 BASIC METABOLIC [id number] 11:22:00* Test Item Value Reference Range Interpretation [...] GFR IS NOT APPLICABLE FOR DIALYSIS PATIENTS. Animal Researcher ID - NTPSpecimen slightly ictericHEPATIC FUNCTION ZFBRY6753-73-72 11:09:00* Test Item Value Reference Range Interpretation [...] (test code = 347) 16 U/L 6-55 Animal Researcher ID - NTPSpecimen slightly ictericCBC W/PLT COUNT [...] = 2801) 0 % 0-1 No clotPROTHROMBIN TIME/EOI3465-21-00 11:03:00* Test Item Value Reference Range Interpretation [...] patie nts wiht mechanical heart valves.COMPREHENSIVE METABOLIC RMSKX8422-89-77 12:23:00* Test Item Value Reference Range Interpretation [...] APPLICABLE FOR DIALYSIS PATIENTS. Specimen slightly ictericBILIRUBIN, CCHGIQ0514-58-01 12:18:00* Test Item Value Reference Range Interpretation Comments BILIRUBIN DIRECT (BEAKER) (test code = 706) 2.4 mg/dL 0.1-0.5 H CBC W/PLT COUNT & AUTO [id number] 12:16:00* Test Item Value Reference Range Interpretation [...] code = 2801) 1 % 0-1 PROTHROMBIN TIME/[id number] 12:09:00* Test Item Value Reference Range Interpretation [...] patie nts wiht mechanical heart valves.HLA TYPING [id number] 21:42:00* Test Item Value Reference Range Interpretation [...] and its performance characteristics determined by the [facility] Laboratory. It has not been cleared [...] to perform high complexity clinical laboratory testing. [facility] HospitalHLA TYPING [id number] 21:42:00* Test Item Value Reference Range Interpretation [...] and its performance characteristics determined by the [facility] Laboratory. It has not been cleared [...] to perform high complexity clinical laboratory testing. [facility] HospitalCOMPREHENSIVE METABOLIC [id number] 12:19:00* Test Item Value Reference Range Interpretation [...] APPLICABLE FOR DIALYSIS PATIENTS. Specimen moderately ictericBILIRUBIN, [id number] 12:18:00* Test Item Value Reference Range Interpretation Comments BILIRUBIN DIRECT ([facility]) (test code = 706) 4.1 mg/dL 0.1-0.5 H U/S, PELVIS, WITH [id number] 11:35:00Reason for Exam:->esrd/kidney transplant evaluationFINAL REPORT Pelvic [...] MDReport Verified Date/Time: 02/03/2019 11:35:01 Reading Location: [address] Radiology Reading Room pelvis with jnbhtne5352-70-36 11:35:00Interface, External Ris In - 02/03/2019 11:37 [...] patent. IMPRESSION: Unremarkable pelvic vasculature. Sign ed: Radha, Keith MDReport Verified Date/Time: 02/03/2019 11:35:01 Reading Locati on: OQMT 10th [facility] Radiology Reading Room [facility] HospitalPROTHROMBIN TIME/[id number] 11:12:00* Test Item Value Reference Range Interpretation [...] mechanical heart valves.CBC W/PLT COUNT & AUTO BOVHGRNEXHUW6154-53-70 11:10:00* Test Item Value Reference Range Interpretation [...] 2801) 1 % 0-1 AB SPECIFICITY CLASS [id number] 09:48:00* Test Item Value Reference Range Interpretation Comments AB Specificity Class I (test code = 3457) NO CLASS I A NTIBODY DETECTED WITH MFIs > 4000 PHILLIP (test code = PHILLIP) Disclaimer: This test was de veloped and its performance characteristics determined by the [facility] Laboratory. It has not been cleared [...] to perform high complexity clinical laboratory testing. [facility] HospitalFLOW PRA CLASS I WITH REFLEX TO ANTIBODY HEHRBZDLFBW7976-58-10 10:06:00* Test Item Value Reference Range Interpretation Comments Flow Class I Percent Positive (test code = 3229) 20 PHILLIP (test code = PHILLIP) Disclaimer: This test was de veloped and its performance characteristics determined by the [facility] Laboratory. It has not been cleared [...] to perform high complexity clinical laboratory testing. [facility] HospitalFLOW PRA CLASS II WITH REFLEX TO ANTIBODY YSIVQDFAQDK1822-67-38 10:06:00* Test Item Value Reference Range Interpretation Comments Flow Class II Percent Positive (test code = 3231) 0 PHILLIP (test code = PHILLIP) Disclaimer: This test was de veloped and its performance characteristics determined by the [facility] Laboratory. It has not been cleared [...] to perform high complexity clinical laboratory testing. [facility] HospitalMISCELLANEOUS LAB [id number] 07:41:00* Test Item Value Reference Range Interpretation Comments SCAN RESULT (test code = 0774266) Hlyzlamxjau2451-33-11 19:31:00* Test Item Value Reference Range Interpretation Comments Haptoglobin (test code = 4542-7) 14 mg/dL 14-258 Lab Interpretation (test code = 09774-9) Normal [facility] HospitalHAPTOGLOBIN2019-11-23 19:31:00* Test Item Value Reference Range [...] % 20-5 5 H Vitamin B12 and Syfzik2012-74-91 19:16:00* Test Item Value Reference Range Interpretation Comments Vitamin B12 (test code = 2132-9) 1988 pg/mL 213-816 H Folate (test code = 2284-8) 17.8 ng/mL >=7.0 Lab Interpretation (test code = 53713-3) Abnormal [facility] HospitalVITAMIN B12 AND [id number] 19:16:00* Test Item Value Reference Range Interpretation Comments VITAMIN B12 (BEAKER) (test code = 774) 1988 pg/mL 213-816 H FOLATE (BEAKER) (test code = 362) 17.8 ng/mL >=7.0 [id number] 19:04:00* Test Item Value Reference Range Interpretation Comments FERRITIN (BEAKER) (test code = 361) 1523 ng/mL 5-275 H Lactate dehydrogenase (LDH)2019-01-18 18:27:00* Test Item Value Reference Range Interpretation Comments LDH (test code = 2532-0) 192 U/L 125-220 Lab Interpretation (test code = 78818-5) Normal [facility] HospitalLACTATE DEHYDROGENASE (LDH)2019-01-18 18:27:00* Test Item Value Reference Range Interpretation Comments LACTATE DEHYDROGENASE (BEAKER) (test code = 635) 192 U/L 125-2 20 Hemoglobin and ptxjxfedwn9551-36-16 11:26:00* Test Item Value Reference Range Interpretation Comments Hemoglobin (test code = 786-4) 7.5 13.7- 17.5 GM/DL L Hematocrit (test code = 4544-3) 23.0 % 40.1-51 L Lab Interpretation (test code = 17804-1) Abnormal [facility] HospitalHEMOGLOBIN AND [id number] 11:26:00* Test Item Value Reference Range Interpretation [...] K/CU MM L MPV (test code = 41328-3) 10.1 fL 9.4-12.4 nRBC (test code = 413) 0 0- 0 /100 WBC Lab Interpretation (test code = 74380-0) Abnormal [facility] (HEMOGRAM ONLY)2019-01-18 03:09:00* Test Item Value Reference [...] WBC 0 -0 Alpha fetoprotein (AFP), tumor eyqwoe4327-71-20 17:58:00* Test Item Value Reference Range Interpretation Comments Alpha-Fetoprotein (test code = 1834-1) 2.7 ng/mL <10.0 Lab Interpretation (test code = 75068-7) Normal [facility] HospitalALPHA FETOPROTEIN (AFP), TUMOR [id number] 17:58:00* Test Item Value Reference Range Interpretation Comments ALPHA-FETOPROTEIN (BEAKER) (test code = 1094) 2.7 ng/mL <10.0 BASIC METABOLIC [id number] 17:09:00* Test Item Value Reference Range Interpretation [...] FOR DIALYSIS PATIENTS. Specimen moderately ictericHEPATIC FUNCTION [id number] 17:08:00* Test Item Value Reference Range Interpretation [...] Specimen moderately ictericCBC W/PLT COUNT & AUTO ZGBIMLGWWPMD0134-27-05 16:55:00* Test Item Value Reference Range Interpretation [...] code = 2801) 0 % 0-1 PROTHROMBIN TIME/[id number] 16:52:00* Test Item Value Reference Range Interpretation [...] patie nts wiht mechanical heart valves.BASIC METABOLIC [id number] 07:35:00* Test Item Value Reference Range Interpretation [...] NOT APPLICABLE FOR DIALYSIS PATIENTS. Specimen markedly qsvbpdpPYUAOVLTV3448-03-53 07:18:00* Test Item Value Reference Range Interpretation Comments MAGNESIUM (BEAKER) (test code = 627) 2.1 mg/dL 1.6-2.6 HEPATIC FUNCTION [id number] 07:18:00* Test Item Value Reference Range Interpretation [...] 347) 16 U/L 6-55 Specimen markedly ictericPROTHROMBIN TIME/UFC0754-66-92 06:41:00* Test Item Value Reference Range Interpretation [...] = 413) 0 /100 WBC 0 -0 UPPHDZHWQ0178-17-97 05:08:00* Test Item Value Reference Range Interpretation Comments MAGNESIUM (BEAKER) (test code = 627) 2.0 mg/dL 1.6-2.6 HEPATIC FUNCTION [id number] 05:08:00* Test Item Value Reference Range Interpretation [...] 18 U/L 6-55 Specimen markedly ictericBASIC METABOLIC SMFZU8961-05-15 05:08:00* Test Item Value Reference Range Interpretation [...] APPLICABLE FOR DIALYSIS PATIENTS. Specimen markedly ictericPROTHROMBIN TIME/AVI9719-05-37 04:55:00* Test Item Value Reference Range Interpretation [...] = 413) 0 /100 WBC 0 -0 Bdumxak8031-52-78 10:14:00* Test Item Value Reference Range Interpretation Comments Ethanol Lvl (test code = 5643-2) <10 <=10 mg/dL Lab Interpretation (test code = 12376-0) [facility]:14[facility]* Test Item Value Reference Range Interpretation Comments ETHANOL (BEAKER) (test code = 400) < mg/dL <=10 BASIC METABOLIC [id number] 05:20:00* Test Item Value Reference Range Interpretation [...] FOR DIALYSIS PATIENTS. Specimen markedly ictericHEPATIC FUNCTION [id number] 05:19:00* Test Item Value Reference Range Interpretation [...] Specimen markedly ictericCBC W/PLT COUNT & AUTO BFGUHJXITUJN1451-76-09 05:05:00 * Test Item Value Reference Range [...] = 2801) 0 % 0-1 BASIC METABOLIC [id number] 22:30:00* Test Item Value Reference Range Interpretation [...] FOR DIALYSIS PATIENTS. Specimen markedly ictericHEPATIC FUNCTION QWMTQ0065-29-97 22:26:00* Test Item Value Reference Range Interpretation [...] = 347) 15 U/L 6-55 Specimen markedly ictericPT/NNVI5448-80-06 22:22:00* Test Item Value Reference Range Interpretation [...] mechanical heart valves.CBC W/PLT COUNT & AUTO KEKFGPDVXSJQ6340-62-32 22:19:00* Test Item Value Reference Range Interpretation [...] code = 2801) 1 % 0-1 BLOOD [id number] 11:00:00* Test Item Value Reference Range Interpretation Comments CULTURE (BEAKER) (test code = 1095) No growth in 5 days HEPATIC FUNCTION [id number] 09:42:00* Test Item Value Reference Range Interpretation [...] 347) 17 U/L 6-55 Specimen markedly ictericBLOOD FTXMIMM6251-62-53 08:00:00* Test Item Value Reference Range Interpretation Comments CULTURE (BEAKER) (test code = 1095) No growth in 5 days BLOOD OCGMYNW6533-25-02 08:00:00* Test Item Value Reference Range Interpretation Comments CULTURE (BEAKER) (test code = 1095) No growth in 5 days BLOOD QUOJFPP0774-79-66 08:00:00* Test Item Value Reference Range Interpretation Comments CULTURE (BEAKER) (test code = 1095) No growth in 5 days RQSOHXKTMQD2083-14-08 05:03:00* Test Item Value Reference Range Interpretation Comments HAPTOGLOBIN (BEAKER) (test code = 366) < mg/dL 14-258 L BASIC METABOLIC FVDEO2218-25-08 05:02:00* Test Item Value Reference Range Interpretation [...] NOT APPLICABLE FOR DIALYSIS PATIENTS. Specimen markedly bktkxopUGCEVGNJZV7582-10-55 04:44:00* Test Item Value Reference Range Interpretation Comments PHOSPHORUS (BEAKER) (test code = 604) 4.4 mg/dL 2.3-4.7 NVBBYLHAS2990-50-10 04:44:00* Test Item Value Reference Range Interpretation Comments MAGNESIUM (BEAKER) (test code = 627) 2.1 mg/dL 1.6-2.6 CBC W/PLT COUNT & AUTO NPZVWFUEMAKS2756-43-78 04:40:00* Test Item Value Reference Range Interpretation [...] = 2801) 0 % 0-1 Vancomycin level, avszyz3454-56-97 04:39:00* Test Item Value Reference Range Interpretation Comments Vancomycin Rm (test code = 76240-2) 16.4 ug/mL PHILLIP (test code = PHILLIP) Reference Range: No Normals [facility]AN[facility] LEVEL, [id number] 04:39:00* Test Item Value Reference Range Interpretation Comments VANCOMYCIN RANDOM (BEAKER) (test code = 523) 16.4 ug/mL Reference Range: No NormalsLACTATE DEHYDROGENASE (LDH)2018-12-25 13:28:00* Test Item Value Reference Range Interpretation Comments LACTATE DEHYDROGENASE (BEAKER) (test code = 635) 242 U/L 125-2 20 H Venous doppler legs iertbaudg7568-02-85 12:50:27Ejection FractionSLEH ECHO HEARTLAB MKCKESSON CPACSRight Impression1. [...] PM CDTPV LAB - L [facility] [place] Extremities DVT Study Demographics Patient Name INDRA GALVAN ate of Study 12/24/2018 YAN CORDERO 8135 Age 38 Visit Number [id number] Gato lerma Male Accession Number [id number] Date of 1980 Referring Audie Hoyt MD Room Number 7604 [facility] Erp Analyst Cb Maki [facility] Interpreting Physician MELVA Meeks ProcedureType of Stud y: Veins: Lower Extremities [...] in the common femoral, profundafemoral, femoral, popliteal, color sprayer ior tibial or peroneal veins.2. There is [...] cm/s ; Diameters are measured i n [facility] W/PLT COUNT & AUTO KWGKHKJOIWMK2517-28-08 04:43:00* Test Item Value Reference Range Interpretation [...] (test code = 2801) 0 % 0-1 DKWJQAUSRH2178-76-31 04:26:00* Test Item Value Reference Range Interpretation Comments PHOSPHORUS (BEAKER) (test code = 604) 4.7 mg/dL 2.3-4.7 DGUMBCMSK5856-09-30 04:26:00* Test Item Value Reference Range Interpretation Comments MAGNESIUM (BEAKER) (test code = 627) 2.3 mg/dL 1.6-2.6 HEPATIC FUNCTION CLGFM1154-44-09 04:26:00* Test Item Value Reference Range Interpretation [...] 12 U/L 6-55 Specimen markedly ictericBASIC METABOLIC TSLPM6105-59-22 04:26:00* Test Item Value Reference Range Interpretation [...] APPLICABLE FOR DIALYSIS PATIENTS. Specimen markedly ictericPROTHROMBIN TIME/PBX4923-92-30 04:22:00* Test Item Value Reference Range Interpretation [...] patie nts wiht mechanical heart valves.BASIC METABOLIC ZLZEM8677-21-97 04:45:00* Test Item Value Reference Range Interpretation [...] NOT APPLICABLE FOR DIALYSIS PATIENTS. Specimen markedly iqdqkvlLMTSREPEZV1107-18-53 04:39:00* Test Item Value Reference Range Interpretation Comments PHOSPHORUS (BEAKER) (test code = 604) 2.4 mg/dL 2.3-4.7 CWPJYZIOL8182-60-26 04:39:00* Test Item Value Reference Range Interpretation Comments MAGNESIUM (BEAKER) (test code = 627) 2.0 mg/dL 1.6-2.6 CBC W/PLT COUNT & AUTO OUXLIVQESBPR8740-65-54 03:32:00* Test Item Value Reference Range Interpretation [...] code = 2801) 0 % 0-1 HEMODIALYSIS LSSWVVTNQ2609-99-25 23:25:30SFlakita granado RN 12/24/2018 12:23 AMVerified informed [...] Ag Latest Ref Range: Nonreactive Nonreactive [facility] (HEMOGRAM ONLY)2018-12-23 20:21:00* Test Item [...] /100 WBC 0 -0 HEPATITIS B SURFACE JTKTGEQ4170-08-76 05:28:00* Test Item Value Reference Range Interpretation Comments HEPATITIS B SURFACE ANTIGEN (2) (BEAKER) (test code = 2585) Nonreactive Nonreactive BASIC METABOLIC [id number] 05:28:00* Test Item Value Reference Range Interpretation [...] NOT APPLICABLE FOR DIALYSIS PATIENTS. Specimen markedly icydopiMCQRZIZMNO0921-64-79 05:23:00* Test Item Value Reference Range Interpretation Comments PHOSPHORUS (BEAKER) (test code = 604) 3.4 mg/dL 2.3-4.7 KRYLIEKFE8507-34-60 05:23:00* Test Item Value Reference Range Interpretation Comments MAGNESIUM (BEAKER) (test code = 627) 2.1 mg/dL 1.6-2.6 VANCOMYCIN LEVEL, [id number] 05:15:00* Test Item Value Reference Range Interpretation Comments VANCOMYCIN RANDOM (BEAKER) (test code = 523) 36.4 ug/mL Reference Range: No NormalsCBC W/PLT COUNT & AUTO WNCGTSULGOHU1822-60-76 04:21:00* Test Item Value Reference Range Interpretation [...] % 0-1 CT, EXTREMITY, LOWER WITHOUT CONTRAST, [id number] 03:00:00FINAL REPORT CT right lower extremity. CLINICAL [...] t o represent laceration/contusion. Signed: Richie Griffin MDRort Verified Date/Time: 12/23/2018 03:00:15 [facility] HospitalVancomycin level, mzrzzi3979-58-73 17:08:00* Test Item Value Reference Range Interpretation Comments Vancomycin Tr (test code = 4092-3) 40.3 ug/mL 10-20 Lab Interpretation (test code = 19316-8) Abnormal [facility] HospitalVANCOMYCIN LEVEL, [id number] 17:08:00* Test Item Value Reference Range Interpretation [...] 0 -0 RAD, CHEST, 1 VIEW, NON [id number] 08:35:00Reason for exam:->eval pulmonary congestionShould this be [...] Moura Verified Date/Time: 12/22/2018 08:35:05 Reading Location: [facility] C0V Neuro Reading Room Electronically signed by: OMERO MOURA M.D. on 2018 08:35 AM BASIC METABOLIC [id number] 05:18:00* Test Item Value Reference Range Interpretation [...] NOT APPLICABLE FOR DIALYSIS PATIENTS. Specimen markedly oohfvsyEJDRCJYXB1308-12-97 05:08:00* Test Item Value Reference Range Interpretation Comments MAGNESIUM (BEAKER) (test code = 627) 2.2 mg/dL 1.6-2.6 Specimen slightly hemolyzed IJZALMQBQU8844-05-78 05:08:00* Test Item Value Reference Range Interpretation Comments PHOSPHORUS (BEAKER) (test code = 604) 3.9 mg/dL 2.3-4.7 Specimen slightly hemolyzed LACTIC ACID, [id number] 04:40:00* Test Item Value Reference Range Interpretation Comments LACTATE BLOOD VENOUS (2) (BEAKER) (test code = 2872) 1.7 mmol/L 0 .5-2.2 Specimen slightly hemolyzed Specimen markedly kvwpmphFyzwrcryco0901-65-27 04:18:00* Test Item Value Reference Range Interpretation Comments Fibrinogen (test code = 3255-7) 195 mg/dl 225-434 L Lab Interpretation (test code = 35399-7) Abnormal [facility] HospitalKbnqsjALEIDELPOF4951-55-83 04:18:00* Test Item Value Reference Range Interpretation Comments FIBRINOGEN LEVEL (BEAKER) (test code = 658) 195 mg/dl 225-434 L CBC W/PLT COUNT & AUTO XDKYEAXQKIVD2012-20-20 04:10:00* Test Item Value Reference Range Interpretation [...] = 2801) 1 % 0-1 HEMOGLOBIN AND YTRVUDUBLQ1584-71-65 08:38:00* Test Item Value Reference Range Interpretation Comments HEMOGLOBIN (BEAKER) (test code = 410) 7.0 GM/DL 13.7-17.5 L HEMATOCRIT (BEAKER) (test code = 411) 20.7 % 40.1-51.0 L POC-Lactic Acid, Nekbsi3145-96-36 04:05:00* Test Item Value Reference Range Interpretation Comments POC-Lactic Acid, Venous (test code = 2805) 1.6 mmol/L 0.9-1.7 TESTED AT [address] [address] Lab Interpretation (test code = 35802-8) Normal [facility] HospitalPOCT-LACTIC ACID, [id number] 04:05:00* Test Item Value Reference Range Interpretation Comments POC-LACTIC ACID, VENOUS (BEAKER) (test code = 2805) 1.6 mmol/L 0. 9-1.7 TESTED AT [address] [address] QAKNXOFWSHFOZ9802-23-77 03:40:00* Test Item Value Reference Range Interpretation Comments PROCALCITONIN (BEAKER) (test code = 3036) 1.26 ng/mL <0.05 H SEPSIS RISK (ng/mL)Low: 0.05-0.50Intermediate: 0.51-2.00High: > =2.19Aqukwbs4272-03-92 03:37:00* Test Item Value Reference Range Interpretation Comments Ammonia (test code = 09023-2) 65 18- 72 mol/L Lab Interpretation (test code = 37100-7) [facility] 03:37:00* Test Item Value Reference Range Interpretation Comments AMMONIA (BEAKER) (test code = 348) 65 mol/L 18-72 PT/[id number] 02:35:00* Test Item Value Reference Range Interpretation [...] patie nts wiht mechanical heart valves.COMPREHENSIVE METABOLIC [id number] 02:26:00* Test Item Value Reference Range Interpretation [...] APPLICABLE FOR DIALYSIS PATIENTS. Specimen markedly ictericTROPONIN [id number] 02:24:00* Test Item Value Reference Range Interpretation [...] acidosis, acute neurological disease, and per sistent tachyarrhythmia.GGLTKQTQS1830-89-77 02:21:00* Test Item Value Reference Range Interpretation Comments MAGNESIUM (BEAKER) (test code = 627) 2.1 mg/dL 1.6-2.6 Specimen slightly hemolyzed POCT-LACTIC ACID, [id number] 02:17:00* Test Item Value Reference Range Interpretation Comments POC-LACTIC ACID, VENOUS (BEAKER) (test code = 2805) 4.0 mmol/L 0. 9-1.[address] [facility] [address] [facility] [address] CBC W/PLT COUNT & AUTO YARHSCBWAPIF5813-59-62 02:09:00* Test Item Value Reference Range Interpretation [...] % 0-1 RAD, CHEST, 1 VIEW, NON [id number] 01:50:00Reason for exam:->chest painShould this be performed [...] 12/21/2018 01:50:02 , KNEE, COMPLETE (4 VIEWS), [id number] 01:49:00Reason for exam:->LACERATIONFINAL REPORT CLINICAL HISTORY: Trauma [...] Date/Time: 12/21/2018 01:49:02 knee complete 4 views ltntj9115-06-04 01:49:00Interface, External Ris In - 12/21/2018 1:51 [...] Katherine Reich MDReport Verified Date/Time: 12/21/2018 01:49:02 [facility] 2018-12-21 01:10:14HaVíctor webster MD 12/24/2018 [...] patient's condition and review of old charts. 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 Rate Analyst: Regis Ortega MD. Real Estate Instructor: None. Approach: Right internal jugular vein Estimated [...] by blunt dissection. A 19 cm right Vietnamese Duraflow 2 catheter was brought through the [...] MDReport Verified Date/Time: 11/15/2018 10:01:43 Reading Location: [facility] P04 8 Angio Body Reading Room TIC FUNCTION [id number] 07:46:00* Test Item Value Reference Range Interpretation [...] 46 U/L 6-55 Specimen markedly ictericBASIC METABOLIC RUIFB2807-57-68 07:46:00* Test Item Value Reference Range Interpretation [...] Specimen markedly ictericCBC W/PLT COUNT & AUTO [id number] 06:23:00 * Test Item Value Reference Range [...] = 2801) 2 % 0-1 H PROTHROMBIN TIME/XIF3463-25-07 06:20:00* Test Item Value Reference Range Interpretation [...] for patie nts wiht mechanical heart valves.BLOOD CIGUDEL5056-25-79 02:01:00* Test Item Value Reference Range Interpretation Comments CULTURE (BEAKER) (test code = 1095) No growth in 5 days BLOOD WUMHYNM7811-73-03 02:01:00* Test Item Value Reference Range Interpretation Comments CULTURE (BEAKER) (test code = 1095) No growth in 5 days HEPATIC FUNCTION [id number] 08:23:00* Test Item Value Reference Range Interpretation [...] U/L 6-55 H Specimen markedly ictericBASIC METABOLIC [id number] 08:15:00* Test Item Value Reference Range Interpretation [...] APPLICABLE FOR DIALYSIS PATIENTS. Specimen markedly ictericPROTHROMBIN TIME/HJR0494-97-10 05:54:00* Test Item Value Reference Range Interpretation [...] mechanical heart valves.CBC W/PLT COUNT & AUTO GBXICXTYVZXF0525-22-31 05:45:00* Test Item Value Reference Range Interpretation [...] code = 2801) 2 % 0-1 H TISSUE [id number] 14:34:00Surgical Pathology Report Case: [id number] Authorizing Provider: Devyn Lantigua MD Collected: 11/10/2018 1325 Ordering Location: [address] Received: 11/11/2018 0818 Service Pathologist: Be Arenas MD Specimens: A) - Polyp, Colon - Sigmoid, sigmoid polyp bx B) - Cecum, cecum ulcer bx Immunostains for HSV1, HSV2, and CMV performed on block B1 are negative.Addendum electronically signed by Be Arenas MD on 11/13/2018 at 2:34 PMPART A SIGMOID COLON POLYP, POLYPECTOMY:HYPERPLASTIC POLYP.PART B CECUM BIOPSY FOR SUSPECTED ULCER:NONSPECIFIC ACTIVE COLITIS WITH ULCERATION AND REGENERATIVE FEATURES.NEGATIVE FOR GRANULOMAS, DYSPLASIA, OR INVASIVE CARCINOMA.NO MORPHOLOGIC OR IMMUNOPHENOTYPIC EVIDENCE OF LYMPHOMA.SEE DIAGNOSTIC COMMENT.IMMUNOSTAINS FOR VIRAL MARKERS PENDING, ADDENDUM TO FOLLOW. Signing Pathologist Direct Phone Line: [phone] signed by Be Arenas MD on 11/12/2018 at [...] is no morphologic or immunophenotypic evidence of lymphoma.43540g1, 91250, 8834 1x5Nrokk polyps A. Sigmoid polyp biopsy. B. Cecum [...] HSV1, HSV2, CMV, CD20, CD3, CD5, CYCLIN G1Apewrff Slides Examined: In-house known positive controls were evaluated along with the test tissue. These control slides run a longside of the patients sample show appropriate staining. Internal positive and negative controls when available are evaluated Immunohistochemistry technical t esting was performed at [facility], Pathology Laboratory w here it was [...] to perform high complexity clinical lab oratory testing.JHXACEDPPP4161-20-74 08:34:00* Test Item Value Reference Range Interpretation Comments PHOSPHORUS (BEAKER) (test code = 604) 2.3 mg/dL 2.3-4.7 HEMOGLOBIN AND IZMCXMBIHP3437-68-30 08:03:00* Test Item Value Reference Range Interpretation Comments HEMOGLOBIN (BEAKER) (test code = 410) 6.4 GM/DL 13.7-17.5 L HEMATOCRIT (BEAKER) (test code = 411) 19.1 % 40.1-51.0 L BASIC METABOLIC [id number] 06:42:00* Test Item Value Reference Range Interpretation [...] FOR DIALYSIS PATIENTS. Specimen markedly ictericHEPATIC FUNCTION [id number] 06:41:00* Test Item Value Reference Range Interpretation [...] Specimen markedly ictericCBC W/PLT COUNT & AUTO NBOZHRUMJRGP5190-26-80 06:36:00 * Test Item Value Reference Range [...] code = 2801) 1 % 0-1 PROTHROMBIN TIME/QPN0634-61-54 06:29:00* Test Item Value Reference Range Interpretation [...] nts wiht mechanical heart valves.RAD, CHEST, 2 [id number] 23:58:00Reason for exam:->coughFINAL REPORT Chest, two views. [...] MDReport Verified Date/Time: 11/12/2018 23:58:30 Reading Location: [place] [address] Consult Reading Room TIC FUNCTION [id number] 04:58:00* Test Item Value Reference Range Interpretation [...] U/L 6-55 H Specimen markedly ictericBASIC METABOLIC [id number] 04:50:00* Test Item Value Reference Range Interpretation [...] Specimen markedly ictericCBC W/PLT COUNT & AUTO NPAKJLNVIWOQ3222-13-05 04:33:00 * Test Item Value Reference Range [...] code = 2801) 1 % 0-1 PROTHROMBIN TIME/DIY4938-09-77 04:25:00* Test Item Value Reference Range Interpretation [...] 2.5-3.5 for patie nts wiht mechanical heart valves.CREATININE, RANDOM [id number] 03:53:00* Test Item Value Reference Range Interpretation Comments CREATININE URINE (BEAKER) (test code = 375) 225.8 mg/dL Reference Range: No NormalsPROTEIN, RANDOM [id number] 03:50:00* Test Item Value Reference Range Interpretation Comments PROTEIN, URINE (BEAKER) (test code = 1569) 122 mg/dL 0-14 H CBC W/PLT COUNT & AUTO RMQQSZMKTHTK2374-04-02 08:10:00* Test Item Value Reference Range Interpretation [...] U/L 6-55 H Specimen markedly ictericBASIC METABOLIC [id number] 06:17:00* Test Item Value Reference Range Interpretation [...] APPLICABLE FOR DIALYSIS PATIENTS. Specimen markedly ictericPROTHROMBIN TIME/TBJ7356-21-68 05:07:00* Test Item Value Reference Range Interpretation [...] patie nts wiht mechanical heart valves.HEPATIC FUNCTION [id number] 06:03:00* Test Item Value Reference Range Interpretation [...] U/L 6-55 H Specimen markedly ictericBASIC METABOLIC [id number] 05:52:00* Test Item Value Reference Range Interpretation [...] Specimen markedly ictericCBC W/PLT COUNT & AUTO ABMHIOCKHRHH3708-18-67 05:17:00 * Test Item Value Reference Range [...] code = 2801) 1 % 0-1 PROTHROMBIN TIME/[id number] 05:07:00* Test Item Value Reference Range Interpretation [...] for patie nts wiht mechanical heart valves.BLOOD LEZDCHG3416-01-80 02:01:00* Test Item Value Reference Range Interpretation Comments CULTURE (BEAKER) (test code = 1095) No growth in 5 days BLOOD GYHUXHH5494-79-05 02:01:00* Test Item Value Reference Range Interpretation Comments CULTURE (BEAKER) (test code = 1095) No growth in 5 days URINALYSIS W/ REFLEX URINE [id number] 00:30:00* Test Item Value Reference Range Interpretation [...] 42 /LPF SOURCE(BEAKER) (test code = 2795) DFVZPAAGQA6609-38-37 11:29:00* Test Item Value Reference Range Interpretation Comments PHOSPHORUS (BEAKER) (test code = 604) 2.3 mg/dL 2.3-4.7 HEPATIC FUNCTION [id number] 04:57:00* Test Item Value Reference Range Interpretation [...] Specimen markedly ictericCBC W/PLT COUNT & AUTO OXKSGLAPJYDD0472-41-61 04:42:00 * Test Item Value Reference Range [...] 2801) 2 % 0-1 H BASIC METABOLIC [id number] 04:41:00* Test Item Value Reference Range Interpretation [...] APPLICABLE FOR DIALYSIS PATIENTS. Specimen markedly ictericPROTHROMBIN TIME/[id number] 04:34:00* Test Item Value Reference Range Interpretation [...] patie nts wiht mechanical heart valves.HEPATIC FUNCTION [id number] 17:22:00* Test Item Value Reference Range Interpretation [...] on 11/08/2018 at 0616 CDT ALKALINE PHOSPHATASE ([facility]) (test code = 346) 131 U/L 40-150 AST (SGOT) (BEAKER) (test code = 353) 177 U/L 5-34 H ALT (SGPT) (GAURAVAKER) (test code = 347) 78 U/L 6-55 H Specimen markedly icteric; notified #[id number] of correctionCANDIDA ANTIGEN WITH REFLEX TO [id number] 11:29:00* Test Item Value Reference Range Interpretation Comments YARI ANTIGEN ([facility]) (test code = 1782) Positive YARI ANTIGEN [id number] 11:29:00* Test Item Value Reference Range Interpretation Comments YARI ANTIGEN TITER ([facility]) (test code = 737) :2 CT, CHEST, WITH HIGH RESOLUTION, INTERSTITAL LUNG [id number] 11:29:00 Reason for exam:->liver transplant evaluationFINAL REPORT [...] Small amount of ascites Signed: Gela Dawson Verified Date/Time: 11/08/2018 11:29:31 Reading Location: [facility] C013X Ortho Consult Reading Room , ABDOMEN, [id number] 08:24:00FINAL REPORT MRI of the abdomen. CLINICAL [...] rt Verified Date/Time: 11/08/2018 08:24:53 Reading Location: [facility] Diagnostic aging Reading Room - [place] [address] [address] [id number] 07:36:00* Test Item Value Reference Range Interpretation Comments CULTURE (BEAKER) (test code = 1095) No growth BASIC METABOLIC [id number] 06:13:00* Test Item Value Reference Range Interpretation [...] NOT APPLICABLE FOR DIALYSIS PATIENTS. Specimen markedly obdrfyvSAYZDCKHWW2625-07-04 06:07:00* Test Item Value Reference Range Interpretation Comments PHOSPHORUS (BEAKER) (test code = 604) 2.8 mg/dL 2.3-4.7 [id number] 06:07:00* Test Item Value Reference Range Interpretation Comments MAGNESIUM (BEAKER) (test code = 627) 2.2 mg/dL 1.6-2.6 PROTHROMBIN TIME/[id number] 05:21:00* Test Item Value Reference Range Interpretation [...] mechanical heart valves.CBC W/PLT COUNT & AUTO OUITBGGQQKET9314-09-64 05:03:00* Test Item Value Reference Range Interpretation [...] % 0-1 CBC W/PLT COUNT & AUTO ZOXUOWCMSSFY9237-32-64 13:51:00* Test Item Value Reference Range Interpretation [...] WIT TOXIC GRANU LATIONS PRESENT BASIC METABOLIC [id number] 07:53:00* Test Item Value Reference Range Interpretation [...] FOR DIALYSIS PATIENTS. Specimen markedly ictericHEPATIC FUNCTION [id number] 07:53:00* Test Item Value Reference Range Interpretation [...] 80 U/L 6-55 H Specimen markedly ictericPROTHROMBIN TIME/[id number] 07:12:00* Test Item Value Reference Range Interpretation [...] mechanical heart valves.CBC W/PLT COUNT & AUTO KMHNAAUHMXVO4161-41-38 08:15:00* Test Item Value Reference Range Interpretation [...] U/L 6-55 H Specimen markedly ictericBASIC METABOLIC [id number] 04:58:00* Test Item Value Reference Range Interpretation [...] APPLICABLE FOR DIALYSIS PATIENTS. Specimen markedly ictericPROTHROMBIN TIME/[id number] 04:37:00* Test Item Value Reference Range Interpretation [...] patie nts wiht mechanical heart valves.URINALYSIS W/ [id number] 22:58:00* Test Item Value Reference Range Interpretation [...] (test code = 2795) Urine, Clean Catch HEPATITIS B SURFACE [id number] 20:23:00* Test Item Value Reference Range Interpretation Comments HEPATITIS B SURFACE ANTIBODY (BEAKER) (test code = 647) < mIU/mL <8.0 HEPATITIS B SURFACE [id number] 20:22:00* Test Item Value Reference Range Interpretation Comments HEPATITIS B SURFACE ANTIGEN (2) (BEAKER) (test code = 2585) Nonreactive Nonreactive HEPATITIS B CORE ANTIBODY, [id number] 20:22:00* Test Item Value Reference Range Interpretation Comments HEPATITIS B CORE TOTAL ANTIBODY (BEAKER) (test code = 497) N onreactive Nonreactive RAD, CHEST, 1 VIEW, NON [id number] 20:17:00Reason for exam:->pleuritic chest painShould this be [...] Date/Time: 11/05/2018 20:17:29 , NON-TUNNELED DIALYSIS CATH, [id number] 19:49:00Reason for exam:->need dialysisFINAL REPORT PROCEDURE: Non-tunneled [...] site was prepared and draped using all ione ents of maximal sterile barrier technique including [...] sonographically evaluated and determined to be patent. [place] l time ultrasound was used to visualize [...] was applied.Catheter placed: Schon XLCathete r size (Vietnamese): 14Catheter length (cm): 15Catheter flush: Heparin (1000 [...] Verified Date/Fernando e: 11/05/2018 19:49:40 Reading Location: [place] [address] Angio Body Reading Room W/PLT COUNT & AUTO [id number] 10:46:00* Test Item Value Reference Range Interpretation [...] cohn Received comment: User comments: Slide comments: BASIC METABOLIC [id number] 06:48:00* Test Item Value Reference Range Interpretation [...] FOR DIALYSIS PATIENTS. Specimen markedly ictericHEPATIC FUNCTION [id number] 06:48:00* Test Item Value Reference Range Interpretation [...] 347) 82 U/L 6-55 H Specimen markedly qigyvoaVFWRWCDBTD4113-81-71 06:44:00* Test Item Value Reference Range Interpretation Comments PHOSPHORUS (BEAKER) (test code = 604) 3.7 mg/dL 2.3-4.7 [id number] 06:44:00* Test Item Value Reference Range Interpretation Comments MAGNESIUM (BEAKER) (test code = 627) 2.5 mg/dL 1.6-2.6 PT/[id number] 05:49:00* Test Item Value Reference Range Interpretation [...] for patie nts wiht mechanical heart valves.PROTHROMBIN TIME/[id number] 05:48:00* Test Item Value Reference Range Interpretation [...] wiht mechanical heart valves.URINALYSIS W/ REFLEX URINE [id number] 20:41:00* Test Item Value Reference Range Interpretation [...] 1574) Rare SOURCE(BEAKER) (test code = 2795) [id number] 14:10:00* Test Item Value Reference Range Interpretation Comments AMMONIA (BEAKER) (test code = 348) 101 mol/L 18-72 H CBC W/PLT COUNT & AUTO [id number] 10:57:00* Test Item Value Reference Range Interpretation [...] (BEAKER) (test code = 474) 1+ few [id number] 10:35:00* Test Item Value Reference Range Interpretation Comments MAGNESIUM (BEAKER) (test code = 627) 2.4 mg/dL 1.6-2.6 HEPATIC FUNCTION [id number] 05:15:00* Test Item Value Reference Range Interpretation [...] U/L 6-55 H Specimen markedly ictericBASIC METABOLIC [id number] 05:14:00* Test Item Value Reference Range Interpretation [...] APPLICABLE FOR DIALYSIS PATIENTS. Specimen markedly ictericPROTHROMBIN TIME/[id number] 04:51:00* Test Item Value Reference Range Interpretation [...] patie nts wiht mechanical heart valves.HEPATIC FUNCTION [id number] 06:30:00* Test Item Value Reference Range Interpretation [...] 52 U/L 6-55 Specimen markedly ictericBASIC METABOLIC [id number] 06:30:00* Test Item Value Reference Range Interpretation [...] APPLICABLE FOR DIALYSIS PATIENTS. Specimen markedly ictericPROTHROMBIN TIME/[id number] 05:42:00* Test Item Value Reference Range Interpretation [...] mechanical heart valves.CBC W/PLT COUNT & AUTO [id number] 05:10:00* Test Item Value Reference Range Interpretation [...] = 2801) 1 % 0-1 BASIC METABOLIC [id number] 07:07:00* Test Item Value Reference Range Interpretation [...] FOR DIALYSIS PATIENTS. Specimen markedly ictericHEPATIC FUNCTION [id number] 07:06:00* Test Item Value Reference Range Interpretation [...] 347) 49 U/L 6-55 Specimen markedly ictericPROTHROMBIN TIME/[id number] 06:21:00* Test Item Value Reference Range Interpretation [...] mechanical heart valves.CBC W/PLT COUNT & AUTO [id number] 06:04:00* Test Item Value Reference Range Interpretation [...] code = 2801) 1 % 0-1 BLOOD [id number] 20:01:00* Test Item Value Reference Range Interpretation Comments CULTURE (BEAKER) (test code = 1095) No growth in 5 days BLOOD [id number] 20:01:00* Test Item Value Reference Range Interpretation Comments CULTURE (BEAKER) (test code = 1095) No growth in 5 days BASIC METABOLIC [id number] 08:05:00* Test Item Value Reference Range Interpretation [...] FOR DIALYSIS PATIENTS. Specimen markedly ictericHEPATIC FUNCTION [id number] 08:04:00* Test Item Value Reference Range Interpretation [...] 347) 37 U/L 6-55 Specimen markedly ictericPROTHROMBIN TIME/[id number] 06:14:00* Test Item Value Reference Range Interpretation [...] mechanical heart valves.CBC W/PLT COUNT & AUTO [id number] 06:13:00* Test Item Value Reference Range Interpretation [...] = 2801) 1 % 0-1 HEPATIC FUNCTION [id number] 06:59:00* Test Item Value Reference Range Interpretation [...] 35 U/L 6-55 Specimen markedly ictericBASIC METABOLIC [id number] 06:56:00* Test Item Value Reference Range Interpretation [...] Specimen markedly ictericCBC W/PLT COUNT & AUTO [id number] 05:54:00 * Test Item Value Reference Range [...] code = 2801) 1 % 0-1 PROTHROMBIN TIME/[id number] 05:46:00* Test Item Value Reference Range Interpretation [...] patie nts wiht mechanical heart valves.SODIUM, RANDOM [id number] 23:21:00* Test Item Value Reference Range Interpretation Comments SODIUM URINE (BEAKER) (test code = 243) 34 meq/L Reference Range: No NormalsBODY FLUID CULTURE + GRAM [id number] 10:20:00* Test Item Value Reference Range Interpretation Comments CULTURE (BEAKER) (test code = 1095) No growth GRAM STAIN RESULT (BEAKER) (test code = 1123) <1+ White blood cells seen GRAM STAIN RESULT (BEAKER) (test code = 50248) No organisms seen HEPATIC FUNCTION [id number] 05:14:00* Test Item Value Reference Range Interpretation [...] 33 U/L 6-55 Specimen markedly ictericBASIC METABOLIC [id number] 05:13:00* Test Item Value Reference Range Interpretation [...] Specimen markedly ictericCBC W/PLT COUNT & AUTO [id number] 04:24:00 * Test Item Value Reference Range [...] = 2801) 2 % 0-1 H PROTHROMBIN TIME/[id number] 04:21:00* Test Item Value Reference Range Interpretation [...] patie nts wiht mechanical heart valves.MISCELLANEOUS LAB [id number] 11:32:00* Test Item Value Reference Range Interpretation Comments SCAN RESULT (test code = 0686367) CBC W/PLT COUNT & AUTO [id number] 09:11:00* Test Item Value Reference Range Interpretation [...] comment: User comments: Slide comments: BASIC METABOLIC [id number] 05:26:00* Test Item Value Reference Range Interpretation [...] FOR DIALYSIS PATIENTS. Specimen markedly ictericHEPATIC FUNCTION [id number] 05:26:00* Test Item Value Reference Range Interpretation [...] 347) 32 U/L 6-55 Specimen markedly ictericPROTHROMBIN TIME/[id number] 04:51:00* Test Item Value Reference Range Interpretation [...] patie nts wiht mechanical heart valves.HEPATIC FUNCTION [id number] 05:37:00* Test Item Value Reference Range Interpretation [...] 28 U/L 6-55 Specimen markedly ictericBASIC METABOLIC [id number] 05:37:00* Test Item Value Reference Range Interpretation [...] Specimen markedly ictericCBC W/PLT COUNT & AUTO [id number] 04:10:00 * Test Item Value Reference Range [...] = 2801) 2 % 0-1 H PROTHROMBIN TIME/[id number] 04:07:00* Test Item Value Reference Range Interpretation [...] for patie nts wiht mechanical heart valves.BLOOD [id number] 20:01:00* Test Item Value Reference Range Interpretation Comments CULTURE (BEAKER) (test code = 1095) No growth in 5 days BLOOD [id number] 20:01:00* Test Item Value Reference Range Interpretation Comments CULTURE (BEAKER) (test code = 1095) No growth in 5 days U/S, [id number] 16:58:00Worsening leukocytosis, to rule out SBP. Please do not remove >3 LReason for exam:->ascites, rule out SBPFINAL REPORT Paracentesis dated 10/27/2018 Procedure: Ultrasound-guided paracentesis. Preprocedure diagnosis: Ascites Postprocedure diagnosis: Ascites Conscious sedation: None. Radiologist: Keith Garcia M.D. Real Estate Instructor: None Anesthesia: 1% Xylocaine mixed with sodium bicarbonate local anesthesia. Te chnique: After obtaining informed consent, ultrasound-guided paracentesis was p erformed under usual sterile technique. Using a 5 pashto drainage catheter, punc ture was made in the right lower quadrant abdomen. Approximately 2000 cc of mayra r yellowish fluid was removed. Patient tolerated the procedure well without comp lication. Complication: None Graft/Implant: None Estimated Blood Loss: None Impr ession: Ultrasound-guided paracentesis. Signed: Keith Garciaeport Verified Da te/Time: 10/27/2018 16:58:17 Reading Location: [facility] C013Y CT Body Reading Viktoriya m FLUID CELL COUNT WITH [id number] 16:24:00* Test Item Value Reference Range Interpretation [...] code = 2873) EDTA Tube LACTIC ACID, [id number] 13:51:00* Test Item Value Reference Range Interpretation Comments LACTATE BLOOD VENOUS (2) (BEAKER) (test code = 2872) 0.8 mmol/L 0 .5-2.2 Sepsis screeningSpecimen markedly ictericBASIC METABOLIC [id number] 05:53:00* Test Item Value Reference Range Interpretation [...] FOR DIALYSIS PATIENTS. Specimen markedly ictericHEPATIC FUNCTION [id number] 05:51:00* Test Item Value Reference Range Interpretation [...] 347) 30 U/L 6-55 Specimen markedly ictericPROTHROMBIN TIME/[id number] 05:07:00* Test Item Value Reference Range Interpretation [...] mechanical heart valves.CBC W/PLT COUNT & AUTO [id number] 04:52:00* Test Item Value Reference Range Interpretation [...] 2801) 2 % 0-1 H U/S, ABDOMINAL, [id number] 13:11:00Abdomen limited area? Add comment if clarification [...] in the left abdomen. Signed: Kirt Sheffield MDReport Verified Date/Time: 10/26/2018 13:11:32 Reading Location: [address] Reading Room C METABOLIC [id number] 08:13:00* Test Item Value Reference Range Interpretation [...] FOR DIALYSIS PATIENTS. Specimen markedly ictericHEPATIC FUNCTION [id number] 08:13:00* Test Item Value Reference Range Interpretation [...] Specimen markedly ictericCBC W/PLT COUNT & AUTO [id number] 05:46:00 * Test Item Value Reference Range [...] = 2801) 2 % 0-1 H PROTHROMBIN TIME/[id number] 05:43:00* Test Item Value Reference Range Interpretation [...] for patie nts wiht mechanical heart valves.TISSUE [id number] 18:03:00Surgical Pathology Report Case: [id number] Authorizing Provider: Shy Parisi MD Collected: 10/19/201856 Ordering Location: [address] Received: 10/21/2018 0830 Service Pathologist: Jefferson Martin MD Specimens: A) - Large Intestine, Colon - Cecum, HEALING ULCER BX B) - Polyp, Colon - Right/Ascending, TAKEN BY FRCP Given the history of an atypical l ymphoid infiltrate ([id number]), the current case was reviewed by Hematopathology [...] ensure that th e current findings are customer development representative. CPT: 42026; 17856 x 4Addendum electronica lly signed by Samina Arteaga MD on 10/25/2018 at 6:03 PMA. COLON, CECUM , HEALING ULCER, BIOPSY: - COLONIC MUCOSA WITH GRANULATION TISSUE, COMPATIBL E WITH HEALING ULCER - NEGATIVE FOR DYSPLASIA OR CARCINOMA (SEE COMMENT)B. C OLON, ASCENDING, POLYPECTOMY: - TUBULAR ADENOMA Signing Pathologist Dir ect Phone Line: [phone] signed by Jefferson Martin MD on 9 at 7:56 PMA. No dense lymphoid infiltrates are seen in the current biopsy. He matopathology consultation will be issued in an addendum.[id number] X 2Pre and postop diagnosis: gastrointestinal hemorrhage, [...] in toto in B1. CG/pl Performed.HEPATIC FUNCTION [id number] 04:53:00* Test Item Value Reference Range Interpretation [...] 35 U/L 6-55 Specimen markedly ictericBASIC METABOLIC [id number] 04:53:00* Test Item Value Reference Range Interpretation [...] APPLICABLE FOR DIALYSIS PATIENTS. Specimen markedly ictericPROTHROMBIN TIME/[id number] 04:27:00* Test Item Value Reference Range Interpretation [...] mechanical heart valves.CBC W/PLT COUNT & AUTO [id number] 04:13:00* Test Item Value Reference Range Interpretation [...] 2801) 2 % 0-1 H BASIC METABOLIC [id number] 05:54:00* Test Item Value Reference Range Interpretation [...] FOR DIALYSIS PATIENTS. Specimen markedly ictericHEPATIC FUNCTION [id number] 05:54:00* Test Item Value Reference Range Interpretation [...] = 347) 31 U/L 6-55 Specimen markedly fttphbsFVOPZHYZIE2439-50-61 05:53:00* Test Item Value Reference Range Interpretation Comments PHOSPHORUS (BEAKER) (test code = 604) 2.0 mg/dL 2.3-4.7 L [id number] 05:53:00* Test Item Value Reference Range Interpretation Comments MAGNESIUM (BEAKER) (test code = 627) 2.2 mg/dL 1.6-2.6 CBC W/PLT COUNT & AUTO [id number] 05:27:00* Test Item Value Reference Range Interpretation [...] = 2801) 2 % 0-1 H PROTHROMBIN TIME/[id number] 05:27:00* Test Item Value Reference Range Interpretation [...] patie nts wiht mechanical heart valves.BASIC METABOLIC [id number] 11:14:00* Test Item Value Reference Range Interpretation [...] FOR DIALYSIS PATIENTS. ADD-ONSpecimen markedly ictericMISCELLANEOUS LAB [id number] 07:36:00* Test Item Value Reference Range Interpretation Comments SCAN RESULT (test code = 9261265) HEPATIC FUNCTION [id number] 05:32:00* Test Item Value Reference Range Interpretation [...] = 347) 33 U/L 6-55 Specimen markedly tnebfxvCHAUIXZZUY4069-88-13 05:21:00* Test Item Value Reference Range Interpretation Comments PHOSPHORUS (BEAKER) (test code = 604) 2.2 mg/dL 2.3-4.7 L [id number] 05:21:00* Test Item Value Reference Range Interpretation Comments MAGNESIUM (BEAKER) (test code = 627) 2.2 mg/dL 1.6-2.6 PROTHROMBIN TIME/[id number] 05:00:00* Test Item Value Reference Range Interpretation [...] mechanical heart valves.CBC W/PLT COUNT & AUTO [id number] 04:51:00* Test Item Value Reference Range Interpretation [...] = 2801) 2 % 0-1 H BLOOD [id number] 20:01:00* Test Item Value Reference Range Interpretation Comments CULTURE (BEAKER) (test code = 1095) No growth in 5 days BLOOD [id number] 20:01:00* Test Item Value Reference Range Interpretation Comments CULTURE (BEAKER) (test code = 1095) No growth in 5 days URINALYSIS W/ REFLEX URINE [id number] 17:08:00* Test Item Value Reference Range Interpretation [...] SOURCE(BEAKER) (test code = 2795) BASIC METABOLIC [id number] 10:18:00* Test Item Value Reference Range Interpretation [...] Specimen markedly ictericCBC W/PLT COUNT & AUTO [id number] 09:06:00 * Test Item Value Reference Range [...] 347) 37 U/L 6-55 Specimen markedly ictericPROTHROMBIN TIME/[id number] 06:10:00* Test Item Value Reference Range Interpretation [...] PERIPHERAL SMR REVIEW (BEAKER) (test code = 5806) Cell counts myke kelly [id number]-BSERRLPSTCT-7177 (BEAKER) (test code = 3424) Colleen Arteaga M.D. (electronic signature) (CELLAVISION MANUAL [...] Slide comments: CBC W/PLT COUNT & AUTO [id number] 09:56:00* Test Item Value Reference Range Interpretation [...] 0 /100 WBC 0 -0 BASIC METABOLIC [id number] 09:01:00* Test Item Value Reference Range Interpretation [...] DIALYSIS PATIENTS. Specimen markedly ictericVITAMIN B12 AND [id number] 08:56:00* Test Item Value Reference Range Interpretation Comments VITAMIN B12 (BEAKER) (test code = 774) > pg/mL 213-816 H FOLATE (BEAKER) (test code = 362) 15.2 ng/mL >=7.0 RETICULOCYTE [id number] 06:56:00* Test Item Value Reference Range Interpretation Comments RETICULOCYTE COUNT PCT (BEAKER) (test code = 575) 8.0 % 0.5- 1.8 H HEPATIC FUNCTION [id number] 06:35:00* Test Item Value Reference Range Interpretation [...] = 347) 34 U/L 6-55 Specimen markedly xiyoegvIMBMQWGFLRG3762-36-74 06:12:00* Test Item Value Reference Range Interpretation Comments HAPTOGLOBIN (BEAKER) (test code = 366) 67 mg/dL 14-258 PROTHROMBIN TIME/[id number] 05:26:00* Test Item Value Reference Range Interpretation [...] 452 U/L 125-2 20 H BASIC METABOLIC [id number] 07:58:00* Test Item Value Reference Range Interpretation [...] FOR DIALYSIS PATIENTS. Specimen markedly ictericHEPATIC FUNCTION [id number] 07:38:00* Test Item Value Reference Range Interpretation [...] = 347) 26 U/L 6-55 Specimen markedly tvpeymxOMTVAREBV5717-87-52 07:36:00* Test Item Value Reference Range Interpretation Comments MAGNESIUM (BEAKER) (test code = 627) 2.2 mg/dL 1.6-2.6 [id number] 07:36:00* Test Item Value Reference Range Interpretation Comments PHOSPHORUS (BEAKER) (test code = 604) 2.8 mg/dL 2.3-4.7 CBC W/PLT COUNT & AUTO [id number] 06:58:00* Test Item Value Reference Range Interpretation [...] = 2801) 2 % 0-1 H PROTHROMBIN TIME/[id number] 06:50:00* Test Item Value Reference Range Interpretation [...] mechanical heart valves.CBC W/PLT COUNT & AUTO [id number] 22:22:00* Test Item Value Reference Range Interpretation [...] 0 -0 CBC W/PLT COUNT & AUTO [id number] 16:47:00* Test Item Value Reference Range Interpretation [...] 0 -0 CBC W/PLT COUNT & AUTO [id number] 09:23:00* Test Item Value Reference Range Interpretation [...] = 347) 20 U/L 6-55 Specimen markedly [id number] 05:23:00* Test Item Value Reference Range Interpretation Comments MAGNESIUM (BEAKER) (test code = 627) 2.2 mg/dL 1.6-2.6 BASIC METABOLIC [id number] 05:23:00* Test Item Value Reference Range Interpretation [...] NOT APPLICABLE FOR DIALYSIS PATIENTS. Specimen markedly phwasasCZBYJSNHNE0571-38-87 05:23:00* Test Item Value Reference Range Interpretation Comments PHOSPHORUS (BEAKER) (test code = 604) 1.6 mg/dL 2.3-4.7 L PROTHROMBIN TIME/[id number] 04:53:00* Test Item Value Reference Range Interpretation [...] pat ients with mechanical heart valves.CREATININE, RANDOM [id number] 02:02:00* Test Item Value Reference Range Interpretation Comments CREATININE URINE (BEAKER) (test code = 375) 44.3 mg/dL Reference Range: No NormalsSODIUM, RANDOM [id number] 02:02:00* Test Item Value Reference Range Interpretation Comments SODIUM URINE (BEAKER) (test code = 243) 93 meq/L Reference Range: No NormalsUREA NITROGEN, RANDOM [id number] 02:02:00* Test Item Value Reference Range Interpretation Comments UREA NITROGEN URINE (BEAKER) (test code = 538) 120 mg/dL Reference Range: No NormalsCBC W/PLT COUNT & AUTO [id number] 20:17:00* Test Item Value Reference Range Interpretation [...] Slide comments: CBC W/PLT COUNT & AUTO [id number] 13:37:00* Test Item Value Reference Range Interpretation [...] Slide comments: CBC W/PLT COUNT & AUTO [id number] 10:50:00* Test Item Value Reference Range Interpretation [...] comment: User comments: Slide comments: LACTIC ACID, [id number] 07:43:00* Test Item Value Reference Range Interpretation Comments LACTATE BLOOD VENOUS (2) (BEAKER) (test code = 2872) 0.9 mmol/L 0 .5-2.2 Specimen slightly hemolyzed Specimen markedly ictericHEPATIC FUNCTION [id number] 06:45:00* Test Item Value Reference Range Interpretation [...] 19 U/L 6-55 Specimen markedly ictericBASIC METABOLIC [id number] 06:44:00* Test Item Value Reference Range Interpretation [...] APPLICABLE FOR DIALYSIS PATIENTS. Specimen markedly ictericPROTHROMBIN TIME/[id number] 05:44:00* Test Item Value Reference Range Interpretation [...] mechanical heart valves.CBC W/PLT COUNT & AUTO [id number] 21:39:00* Test Item Value Reference Range Interpretation [...] LYMPHOCYTES - ABS (CELLAVISION)(BEAKER) (test code = 0838) 0.18 K/uL 0.00-0.00 H TOTAL COUNTED (BEAKER) (test code = 6321) 100 WBC MORPHOLOGY (BEAKER) (test code = 487) Normal GIANT PLATELETS (BEAKER) (test code = 313) Present ANISOCYTOSIS (BEAKER) (test code = 961) 1+ few ARTIFACT (CELLAVISION)(BEAKER) (test code = 3432) Present PLATELET CONCENTRATION (CELLAVISION)(BEAKER) (test code = 3438) Cheryl quate Received comment: User comments: Slide comments: URINALYSIS W/ REFLEX URINE [id number] 18:43:00* Test Item Value Reference Range Interpretation [...] SOURCE(BEAKER) (test code = 2795) BASIC METABOLIC [id number] 18:23:00* Test Item Value Reference Range Interpretation [...] = 697) 7.5 mg/dL 8.4-10.2 L EGFR ([facility]) (test code = 1092) 56 mL/min/1.73 sq m ESTIMATED GFR IS NOT ACCURATE CREATININE CLEARANCE IN PREDICTING GLOMERULAR FILTRATION RATE. ESTIMATED GFR IS NOT APPLICABLE FOR DIALYSIS PATIENTS. Specimen markedly ictericU/S, ABDOMINAL, [id number] 17:43:00With doppler Reason for exam:->elevated liver enzymes, [...] MDReport Verified Date/Time: 10/17/2018 17:43:28 Reading Location: [facility] C013W Consult Reading Room U/S, DUPLEX, [id number] 17:43:00With doppler Reason for exam:->elevated liver enzymes, [...] Verified Date /Time: 10/17/2018 17:43:28 Reading Location: [facility] C013W Consult Reading Room [id number] 17:35:00* Test Item Value Reference Range Interpretation Comments MAGNESIUM (BEAKER) (test code = 627) 2.3 mg/dL 1.6-2.6 CREATINE KINASE (CK)2018-10-17 16:29:00* Test Item Value Reference Range Interpretation Comments CREATINE KINASE TOTAL (BEAKER) (test code = 380) 29 U/L 29-20 0 [id number] 16:11:00* Test Item Value Reference Range Interpretation Comments PROCALCITONIN (BEAKER) (test code = 3036) 0.71 ng/mL <0.05 H SEPSIS RISK (ng/mL)Low: 0.05-0.50Intermediate: 0.51-2.00High: > =2.01LACTIC ACID, [id number] 15:42:00* Test Item Value Reference Range Interpretation Comments LACTATE BLOOD VENOUS (2) (BEAKER) (test code = 2872) 1.2 mmol/L 0 .5-2.2 Specimen slightly hemolyzed Specimen markedly ictericCBC W/PLT COUNT & AUTO [id number] 15:29:00 * Test Item Value Reference Range [...] = 413) 0 /100 WBC 0 -0 [id number] 15:22:00* Test Item Value Reference Range Interpretation Comments ETHANOL (BEAKER) (test code = 400) < mg/dL <=10 CBC W/PLT COUNT & AUTO [id number] 14:47:00* Test Item Value Reference Range Interpretation [...] 21 U/L 6-55 Specimen markedly ictericBASIC METABOLIC [id number] 08:16:00* Test Item Value Reference Range Interpretation [...] PATIENTS. Specimen markedly ictericURINALYSIS W/ REFLEX URINE [id number] 03:31:00* Test Item Value Reference Range Interpretation [...] (test code = 2795) Bilirubin Crystals seenBILIRUBIN, [id number] 00:59:00* Test Item Value Reference Range Interpretation Comments BILIRUBIN DIRECT (BEAKER) (test code = 706) 24.2 mg/dL 0.1-0.5 H Specimen slightly hemolyzed COMPREHENSIVE METABOLIC [id number] 00:58:00* Test Item Value Reference Range Interpretation [...] NOT APPLICABLE FOR DIALYSIS PATIENTS. Specimen markedly uwnwtdeLOMRWZVUS3335-67-13 00:13:00* Test Item Value Reference Range Interpretation Comments MAGNESIUM (BEAKER) (test code = 627) 1.5 mg/dL 1.6-2.6 L Specimen slightly hemolyzed PROTHROMBIN TIME/[id number] 23:47:00* Test Item Value Reference Range Interpretation [...] mechanical heart valves.CBC W/PLT COUNT & AUTO [id number] 23:43:00* Test Item Value Reference Range Interpretation [...] 0-1 H RAD, CHEST, 1 VIEW, NON [id number] 22:36:00Reason for exam:->SOBShould this be performed at [...] MDReport Verified Date/Time: 10/16/2018 22:36:02 Lactic Acid [id number] 20:02:00* Test Item Value Reference Range Interpretation Comments Lactic Acid Level (test code = Lactic Acid Level) 18.4 4.5- 19.8 [facility]00 [place] [address] Patient Name: INDRA GALVAN JR MR #: [id number] : 1980 Age/Sex: 37/M Req #: [id number] Adm Physician: Ordered by: MARYLU DUQUE MD Report #: [id number] Location: ER Room/Bed: Procedure: NM/HEPTOBILIARY Exam Date: [...] COPY TO: MARYLU DUQUE MD CT ABDOMEN/PELVIS R8367-25-03 17:40:00 [place] [address] Patient Name: INDRA GALVAN JR MR #: [id number] : 1980 Age/Sex: 37/M Req #: [id number] Adm Physician: Ordered by: MARYLU DUQUE MD Report #: [id number] Location: ER Room/Bed: Procedure: CT/CT ABDOMEN/PELVIS W [...] 10/16/181749 COPY TO: MARYLU DUQUE MD Prothrombin Tnkj2034-51-69 17:34:00* Test Item Value Reference Range Interpretation Comments Prothrombin Time (test code = 5902-2) 18.5 11.9-14.[address] [facility]kinProthromb Time International Ratio 2018-10-16 17:34:00* Test Item Value Reference Range Interpretation Comments Prothromb Time International Ratio (test code = 6301-6) 1.48 Oral Anticoagulant Therapy INR Values:1. Low Intensity Therapy 1.5 - 2.02 . Moderate Intensity Therapy 2.0 - 3.03. High Intensity Therapy(1) 2.5 - 3. 54. High Intensity Therapy(2) 3.0 - 4.05. Panic Value INR > 5.0 [facility]kinAcetaminophen Bligy0795-24-95 17:30:00* Test Item Value Reference Range Interpretation Comments Acetaminophen Level (test code = 54431-1) < 3 10-[address] [facility]ufkinUrine QXI5360-20-86 16:09:00* Test Item Value Reference Range Interpretation Comments Urine WBC (test code = 5821-4) 0-5 0-5 [facility]kinUrine KPR3967-40-97 16:09:00* Test Item Value Reference Range Interpretation Comments Urine RBC (test code = 90855-6) 6-10 0-[address] [facility]kinUrine Inginxda6587-81-75 16:09:00* Test Item Value Reference Range Interpretation Comments Urine Bacteria (test code = 36650-4) MANY NONE [facility]kinUrine Epithelial Crkay5518-61-45 16:09:00 * Test Item Value Reference Range Interpretation Comments Urine Epithelial Cells (test code = 95010-4) FEW NONE [facility]kinUrine Amorphous Rkketbqn6753-23-11 16:09:00* Test Item Value Reference Range Interpretation Comments Urine Amorphous Sediment (test code = 8246-1) MODERATE FEW H [facility]kinUrine Fine Granular Yrump4401-26-50 16:09:00* Test Item Value Reference Range Interpretation Comments Urine Fine Granular Casts (test code = 80947-3) 1-[address] [facility]kinUrine Rjglc6758-93-25 15:58:00* Test Item Value Reference Range Interpretation Comments Urine Color (test code = 5778-6) BROWN YELLOW [facility]kinUrine Gfsrmyy8952-68-87 15:58:00* Test Item Value Reference Range Interpretation Comments Urine Clarity (test code = 33366-3) CLOUDY CLEAR H [facility]kinUrine Specific Vldixsf8852-97-21 15:58:00 * Test Item Value Reference Range Interpretation Comments Urine Specific [place] (test code = 5811-5) 1.010 1.010-1.[address] [facility]kinUrine gD9798-05-78 15:58:00* Test Item Value Reference Range Interpretation Comments Urine pH (test code = 88072-8) 7 5-7 [facility] Leukocyte Glgzrctl6977-22-84 15:58:00* Test Item Value Reference Range Interpretation Comments Urine Leukocyte Esterase (test code = 07552-0) SMALL NEGATIV E [facility]kinUrine Uixbefr8603-12-56 15:58:00* Test Item Value Reference Range Interpretation Comments Urine Nitrite (test code = 63097-8) POSITIVE [facility]IVE [facility] Dkzrssf0910-04-10 15:58:00* Test Item Value Reference Range Interpretation Comments Urine Protein (test code = 99971-1) 2+ NEGATIVE [facility]Urine Glucose (UA)2018-10-16 15:58:00* Test Item Value Reference Range Interpretation Comments Urine Glucose (UA) (test code = 37679-7) 2+ NEGATIVE [facility] Xkrtbhu2054-40-51 15:58:00* Test Item Value Reference Range Interpretation Comments Urine Ketones (test code = 15867-9) TRACE NEGATIVE H [facility]kinUrine Gsdwqdykfkpy5071-91-50 15:58:00* Test Item Value Reference Range Interpretation Comments Urine Urobilinogen (test code = 21038-9) 1 0.2-1 [facility]kinUrine Dofmecaeo0984-03-74 15:58:00* Test Item Value Reference Range Interpretation Comments Urine Bilirubin (test code = 1977-8) LARGE NEGATIVE [facility]kinUrine Hibiy6527-17-14 15:58:00* Test Item Value Reference Range Interpretation Comments Urine Blood (test code = 62537-0) 3+ NEGATIVE [facility] LufkinB-Type Natriuretic Wdfalma4277-45-84 15:31:00* Test Item Value Reference Range Interpretation Comments B-Type Natriuretic Peptide (test code = 19108-8) 403.4 0-[address] [facility]kinCreatine Kinase BJ7731-35-44 15:20:00* Test Item Value Reference Range Interpretation Comments Creatine Kinase MB (test code = 69590-0) 0.40 0-5.0 [facility]kinTroponin O5460-73-10 15:20:00* Test Item Value Reference Range Interpretation Comments Troponin I (test code = QSF3201) 0.012 0-0.[address] [facility] Centerodium Dajqi8034-20-50 15:19:00* Test Item Value Reference Range Interpretation Comments Sodium Level (test code = 2951-2) 134 136-[address] [facility]kinPotassium Kfjlm1571-13-99 15:19:00* Test Item Value Reference Range Interpretation Comments Potassium Level (test code = 2823-3) 2.7 3.5-5.1 LL Results repeated and called to DR. KELSEY at 1518 on 10/16/18 by VICKY WHITTAKER. Read back and verified.[facility]kinChloride Level 2018-10-16 15:19:00* Test Item Value Reference Range Interpretation Comments Chloride Level (test code = 2075-0) 93 98-[address] [facility] LufkinCarbon Dioxide Wqrcu3840-34-36 15:19:00* Test Item Value Reference Range Interpretation Comments Carbon Dioxide Level (test code = 2028-9) 28 22-29 [facility] LufkinAnion Hde4771-95-92 15:19:00* Test Item Value Reference Range Interpretation Comments Anion Gap (test code = 46877-4) 15.7 8-16 [facility] LufkinBlood Urea Bdssczsm2093-24-05 15:19:00* Test Item Value Reference Range Interpretation Comments Blood Urea Nitrogen (test code = 3094-0) 9 7-26 [facility]kinCreatinine2019-08-21 15:19:00* Test Item Value Reference Range Interpretation Comments Creatinine (test code = 2160-0) 1.47 0.72-1.[address] [facility] LufkinBUN/Creatinine Yrbsj3155-42-84 15:19:00* Test Item Value Reference Range Interpretation Comments BUN/Creatinine Ratio (test code = 3097-3) 6 6-25 [facility] LufkinEstimat Glomerular Filtration Rate 2018-10-16 15:19:00* Test Item Value Reference Range Interpretation Comments Estimat Glomerular Filtration Rate (test code = 886355769) 53 >60 L Ranges were taken from the National Kidney Disease Education Program and the [facility] Kidney Foundation literature.Reference ranges:60 or greater: Izfifv12-75 ( for 3 consecutive months): Chronic kidney disease 15 or less: Kidney failureSt. Luke's Health – Memorial LufkinGlucose Ptskt9163-64-83 15:19:00* Test Item Value Reference Range Interpretation Comments Glucose Level (test code = KHT8807) 144 74-[address] [facility] LufkinCalcium Whljc7662-44-59 15:19:00* Test Item Value Reference Range Interpretation Comments Calcium Level (test code = 82725-5) 8.5 8.4-10.2 [facility] LufkinTotal Njspqwczc6513-57-36 15:19:00* Test Item Value Reference Range Interpretation Comments Total Bilirubin (test code = 1975-2) > 25.0 0.2-1.[address] [facility] LufkinAspartate Amino Transf (AST/SGOT) 2018-10-16 15:19:00* Test Item Value Reference Range Interpretation Comments Aspartate Amino Transf (AST/SGOT) (test code = Aspartate Amino Transf (AST/SGOT)) 98 5-[address] [facility] LufkinAlanine Aminotransferase (ALT/SGPT) 2018-10-16 15:19:00* Test Item Value Reference Range Interpretation Comments Alanine Aminotransferase (ALT/SGPT) (test code = 1742-6) 22 0-55 [facility] LufkinTotal Bwnwijp4629-51-29 15:19:00* Test Item Value Reference Range Interpretation Comments Total Protein (test code = 2885-2) 6.6 6.5-8.1 [facility] LufkinAlbumin2019-08-21 15:19:00* Test Item Value Reference Range Interpretation Comments Albumin (test code = 1751-7) 2.5 3.5-5.[address] [facility] LufkinGlobulin2019-08-21 15:19:00* Test Item Value Reference Range Interpretation Comments Globulin (test code = 79935-1) 4.1 2.3-3.[address] [facility] LufkinAlbumin/Globulin Zujcz7057-55-03 15:19:00 * Test Item Value Reference Range Interpretation Comments Albumin/Globulin Ratio (test code = 1759-0) 0.6 0.8-2.[address] [facility] LufkinAlkaline Zwlxuikqrdt7476-55-92 15:19:00* Test Item Value Reference Range Interpretation Comments Alkaline Phosphatase (test code = 6768-6) 159 40-[address] [facility] LufkinCreatine Ttuiik6368-48-35 15:19:00* Test Item Value Reference Range Interpretation Comments Creatine Kinase (test code = 2157-6) 39 30-200 [facility] LufkinWhite Blood Upwsy0456-14-88 14:59:00* Test Item Value Reference Range Interpretation Comments White Blood Count (test code = 6690-2) 18.65 4.8-10.[address] [facility] LufkinRed Blood Bleby5418-80-87 14:59:00* Test Item Value Reference Range Interpretation Comments Red Blood Count (test code = 789-8) 2.11 4.3-5.[address] [facility] LufkinHemoglobin2019-08-21 14:59:00* Test Item Value Reference Range Interpretation Comments Hemoglobin (test code = 82822-4) 7.7 14.0-18.[address] [facility] LufkinHematocrit2019-08-21 14:59:00* Test Item Value Reference Range Interpretation Comments Hematocrit (test code = 4544-3) 22.2 38.2-49.[address] [facility] LufkinMean Corpuscular Yuddeh2306-35-85 14:59:00* Test Item Value Reference Range Interpretation Comments Mean Corpuscular Volume (test code = 787-2) 105.2 81-[address] [facility] LufkinMean Corpuscular Vejbfkdrca4102-56-72 14:59:00* Test Item Value Reference Range Interpretation Comments Mean Corpuscular Hemoglobin (test code = 785-6) 36.5 28-[address] [facility] LufkinMean Corpuscular Hemoglobin Concent 2018-10-16 14:59:00* Test Item Value Reference Range Interpretation Comments Mean Corpuscular Hemoglobin Concent (test code = 786-4) 34.7 31-35 [facility] LufkinRed Cell Distribution Jmepr6630-10-22 14:59:00* Test Item Value Reference Range Interpretation Comments Red Cell Distribution Width (test code = 09928-1) 14.0 11.7 -14.4 [facility] Memorial LufkinPlatelet Lelao8749-70-00 14:59:00* Test Item Value Reference Range Interpretation Comments Platelet Count (test code = 777-3) 184 140-360 [facility] LufkinNeutrophils (%) (Auto)2018-10-16 14:59:00 * Test Item Value Reference Range Interpretation Comments Neutrophils (%) (Auto) (test code = 32647-4) 80.6 38.7-80.[address] [facility] LufkinLymphocytes (%) (Auto)2018-10-16 14:59:00 * Test Item Value Reference Range Interpretation Comments Lymphocytes (%) (Auto) (test code = 736-9) 5.3 18.0-39.[address] [facility] LufkinMonocytes (%) (Auto)2018-10-16 14:59:00* Test Item Value Reference Range Interpretation Comments Monocytes (%) (Auto) (test code = 5905-5) 11.7 4.4-11.[address] [facility]ufkinEosinophils (%) (Auto)2018-10-16 14:59:00 * Test Item Value Reference Range Interpretation Comments Eosinophils (%) (Auto) (test code = 713-8) 0.5 0.0-6.0 [facility] LufkinBasophils (%) (Auto)2018-10-16 14:59:00* Test Item Value Reference Range Interpretation Comments Basophils (%) (Auto) (test code = 706-2) 0.3 0.0-1.0 [facility] LufkinIM GRANULOCYTES %2018-10-16 14:59:00* Test Item Value Reference Range Interpretation Comments IM GRANULOCYTES % (test code = IM GRANULOCYTES %) 1.6 0.0- 1.[address] [facility] LufkinNeutrophils # (Auto)2018-10-16 14:59:00* Test Item Value Reference Range Interpretation Comments Neutrophils # (Auto) (test code = 751-8) 15.0 2.1-6.[address] [facility] LufkinLymphocytes # (Auto)2018-10-16 14:59:00* Test Item Value Reference Range Interpretation Comments Lymphocytes # (Auto) (test code = 75360-9) 1.0 1.0-3.2 [facility]ufkinMonocytes # (Auto)2018-10-16 14:59:00* Test Item Value Reference Range Interpretation Comments Monocytes # (Auto) (test code = 742-7) 2.2 0.2-0.[address] [facility]ufkinEosinophils # (Auto)2018-10-16 14:59:00* Test Item Value Reference Range Interpretation Comments Eosinophils # (Auto) (test code = 711-2) 0.1 0.0-0.4 [facility]ufkinBasophils # (Auto)2018-10-16 14:59:00* Test Item Value Reference Range Interpretation Comments Basophils # (Auto) (test code = 704-7) 0.1 0.0-0.1 [facility] LufkinAbsolute Immature Granulocyte (auto 2018-10-16 14:59:00* Test Item Value Reference Range Interpretation Comments Absolute Immature Granulocyte (auto (doug t code = Absolute Immature Granulocyte (auto) 0.30 0-0.[address] [facility] LufkinAFB CULTURE + AHQYX3490-04-94 07:33:00* Test Item Value Reference Range Interpretation Comments CULTURE (BEAKER) (test code = 1095) No acid-fast bacilli isolate d in 42 days AFB SMEAR (BEAKER) (test code = 994) No acid fast bacilli seen FUNGUS CULTURE + FWIHT2676-82-85 17:11:00* Test Item Value Reference Range Interpretation Comments CULTURE (BEAKER) (test code = 1095) No fungus isolated in 28 days FUNGUS SMEAR (BEAKER) (test code = 1406) No fungi seen CREATINE KINASE (CK)2018-07-09 05:38:00* Test Item Value Reference Range Interpretation Comments CREATINE KINASE TOTAL (BEAKER) (test code = 380) 17 U/L 29-20 0 L VZCKQMKUO6917-02-92 05:37:00* Test Item Value Reference Range Interpretation Comments MAGNESIUM (BEAKER) (test code = 627) 1.6 mg/dL 1.6-2.6 BASIC METABOLIC YUXAB0648-78-79 05:37:00* Test Item Value Reference Range Interpretation [...] FOR DIALYSIS PATIENTS. Specimen moderately ictericHEPATIC FUNCTION QUFLD9170-87-27 05:37:00* Test Item Value Reference Range Interpretation [...] 347) 83 U/L 6-55 H Specimen moderately ifpckedHNXC5520-33-14 05:32:00* Test Item Value Reference Range Interpretation Comments PARTIAL THROMBOPLASTIN TIME (BEAKER) (test code = 760) 45.3 seconds 22.5-36.0 H PROTHROMBIN TIME/QKL5058-15-51 05:31:00* Test Item Value Reference Range Interpretation [...] mechanical heart valves.CBC W/PLT COUNT & AUTO TNXZOGDNDNMJ1001-13-83 05:08:00* Test Item Value Reference Range Interpretation [...] code = 2801) 1 % 0-1 POCT-GLUCOSE RMOVO1288-89-96 22:05:00* Test Item Value Reference Range Interpretation Comments POC-GLUCOSE METER (BEAKER) (test code = 1538) 168 mg/dL 70-[address] [facility] [address] [facility] [address] [place], ESOPH, SWALLOW FUNCTION, WITH CINE OR CEAFD5195-70-71 10:04:00Reason for exam:->evaluate swallow safety after prolonged [...] MDReport Verified Date/Time: 07/08/2018 10:04:01 Reading Location: [facility] C013X Ortho Consult Reading Room SRHGU1142-95-56 06:21:00* Test Item Value Reference Range Interpretation Comments MAGNESIUM (BEAKER) (test code = 627) 1.7 mg/dL 1.6-2.6 BASIC METABOLIC OEVAQ7109-78-36 06:21:00* Test Item Value Reference Range Interpretation [...] FOR DIALYSIS PATIENTS. Specimen moderately ictericHEPATIC FUNCTION QTWVL4667-11-55 06:21:00* Test Item Value Reference Range Interpretation [...] Specimen moderately ictericCBC W/PLT COUNT & AUTO LZCTBJYLHEGF0589-62-28 06:09:00* Test Item Value Reference Range Interpretation [...] (test code = 2801) 1 % 0-1 PNQF0679-94-03 05:49:00* Test Item Value Reference Range Interpretation Comments PARTIAL THROMBOPLASTIN TIME (BEAKER) (test code = 760) 45.0 seconds 22.5-36.0 H PROTHROMBIN TIME/GRQ0235-84-97 05:48:00* Test Item Value Reference Range Interpretation Comments PROTIME (BEAKER) (test code = 759) 15.7 seconds 11.7-14.7 H INR (BEAKER) (test code = 370) 1.3 <=5.9 RECOMMENDED COUMADIN/WARFARIN INR THERAPY RANGESSTANDARD DOSE: 2.0 - 3.0 Inclu herb: PROPHYLAXIS for venous thrombosis, systemic embolization; TREATMENT for giulia ous thrombosis and/or pulmonary embolus.HIGH RISK: Target INR is 2.5-3.5 for pat ients with mechanical heart valves.POCT-GLUCOSE [id number] 05:45:00* Test Item Value Reference Range Interpretation Comments POC-GLUCOSE METER (BEAKER) (test code = 1538) 104 mg/dL 70-110 TESTED AT [address] [address] POCT-GLUCOSE [id number] 00:02:00* Test Item Value Reference Range Interpretation Comments POC-GLUCOSE METER (BEAKER) (test code = 1538) 102 mg/dL 70-110 TESTED AT [address] [address] POCT-GLUCOSE OOYCO9685-56-02 18:01:00* Test Item Value Reference Range Interpretation Comments POC-GLUCOSE METER (BEAKER) (test code = 1538) 91 mg/dL 70-110 TESTED AT [address] [address] POCT-GLUCOSE [id number] 12:34:00* Test Item Value Reference Range Interpretation Comments POC-GLUCOSE METER (BEAKER) (test code = 1538) 94 mg/dL 70-[address] [facility] [address] [facility] [address] POCT-GLUCOSE [id number] 06:22:00* Test Item Value Reference Range Interpretation Comments POC-GLUCOSE METER (BEAKER) (test code = 1538) 111 mg/dL 70-[address] [facility] [address] [facility] [address] [id number] 06:14:00* Test Item Value Reference Range Interpretation Comments MAGNESIUM (BEAKER) (test code = 627) 1.8 mg/dL 1.6-2.6 BASIC METABOLIC [id number] 06:14:00* Test Item Value Reference Range Interpretation [...] FOR DIALYSIS PATIENTS. Specimen moderately ictericHEPATIC FUNCTION [id number] 06:14:00* Test Item Value Reference Range Interpretation [...] 347) 93 U/L 6-55 H Specimen moderately mqqhiyzRQPM3357-21-85 05:42:00* Test Item Value Reference Range Interpretation Comments PARTIAL THROMBOPLASTIN TIME (BEAKER) (test code = 760) 43.0 seconds 22.5-36.0 H PROTHROMBIN TIME/[id number] 05:41:00* Test Item Value Reference Range Interpretation [...] mechanical heart valves.CBC W/PLT COUNT & AUTO MGRIHTBRXAOO7802-90-26 05:30:00* Test Item Value Reference Range Interpretation [...] code = 2801) 1 % 0-1 POCT-GLUCOSE [id number] 00:27:00* Test Item Value Reference Range Interpretation Comments POC-GLUCOSE METER (BEAKER) (test code = 1538) 110 mg/dL 70-110 TESTED AT [address] [address] POCT-GLUCOSE [id number] 17:58:00* Test Item Value Reference Range Interpretation Comments POC-GLUCOSE METER (BEAKER) (test code = 1538) 165 mg/dL 70-110 H TESTED AT [address] [address] POCT-GLUCOSE [id number] 12:01:00* Test Item Value Reference Range Interpretation Comments POC-GLUCOSE METER (BEAKER) (test code = 1538) 138 mg/dL 70-110 H TESTED AT [address] [address] [id number] 07:32:00* Test Item Value Reference Range Interpretation Comments PARTIAL THROMBOPLASTIN TIME (BEAKER) (test code = 760) 43.2 seconds 22.5-36.0 H PROTHROMBIN TIME/PCA3727-29-17 07:31:00* Test Item Value Reference Range Interpretation Comments PROTIME (BEAKER) (test code = 759) 15.1 seconds 11.7-14.7 H INR (BEAKER) (test code = 370) 1.3 <=5.9 RECOMMENDED COUMADIN/WARFARIN INR THERAPY RANGESSTANDARD DOSE: 2.0 - 3.0 Inclu herb: PROPHYLAXIS for venous thrombosis, systemic embolization; TREATMENT for giulia ous thrombosis and/or pulmonary embolus.HIGH RISK: Target INR is 2.5-3.5 for pat ients with mechanical heart valves.WESOEPFGD6628-19-21 06:50:00* Test Item Value Reference Range Interpretation Comments MAGNESIUM (BEAKER) (test code = 627) 1.5 mg/dL 1.6-2.6 L BASIC METABOLIC [id number] 06:50:00* Test Item Value Reference Range Interpretation [...] FOR DIALYSIS PATIENTS. Specimen moderately ictericHEPATIC FUNCTION [id number] 06:50:00* Test Item Value Reference Range Interpretation [...] Specimen moderately ictericCBC W/PLT COUNT & AUTO GVULGKLKNDDN7451-26-84 06:49:00* Test Item Value Reference Range Interpretation [...] code = 2801) 1 % 0-1 POCT-GLUCOSE [id number] 06:06:00* Test Item Value Reference Range Interpretation Comments POC-GLUCOSE METER (BEAKER) (test code = 1538) 165 mg/dL 70-110 H TESTED AT [address] [address] POCT-GLUCOSE [id number] 00:15:00* Test Item Value Reference Range Interpretation Comments POC-GLUCOSE METER (BEAKER) (test code = 1538) 132 mg/dL 70-110 H TESTED AT [address] [address] POCT-GLUCOSE [id number] 21:55:00* Test Item Value Reference Range Interpretation Comments POC-GLUCOSE METER (BEAKER) (test code = 1538) 161 mg/dL 70-110 H TESTED AT [address] [address] POCT-GLUCOSE [id number] 17:57:00* Test Item Value Reference Range Interpretation Comments POC-GLUCOSE METER (BEAKER) (test code = 1538) 136 mg/dL 70-110 H TESTED AT [address] [address] TISSUE [id number] 16:12:00Surgical Pathology Report Case: [id number] Authorizing Provider: Neptali Kolb, Collected: 07/04/2018 Bob[facility] FRYE Ordering Location: [address] Received: 07/04/2018 1313 Pathologist: Be Arenas MD Specimen: Cecum, R/O lymphoma PART A CECAL BIOPSY:GRANULATION TISSUE.NO EVIDENCE OF LYMPHOMA OR CARCINOMA..IMMUNOSTAINS FOR CMV, HSV1, HSV2 ARE NEGATIVE.SPECIAL STAINS FOR FUNGAL ORGANISMS (GMS, PAS) ARE NEGATIVE.SEE DIAGNOSTIC COMMENT. Signing Pathologist Direct Phone Line: [phone] signed by Be Arenas MD on 07/05/2018 [...] the sampled material may not be fully customer development representative. The prominent B cell population identified in the prior study ([id number]) is not identified in the current study. If there is a strong clinical concern for a malignant process, additional tissue based studies are recommended as the sampled material may not be fully customer development representative. 28059, [address]5350, 61380P2, 60954Y9Sdscq ulcer lower GI bleeding, rule out lymphomaCecum Received in formalin labeled as "cecum, rule out lymphoma" are multiple more than five red-guajardo tissue fragments ranging from 0.1 to 0.4 cm. The specimen is submitted in toto in one cassette. [place]/plperformedThe interpretation of this case included the use of immunohistochemistry or special stains.BLOCK A1- GMS, PAS, HSV1, HSV2, CD20, PAX5, CD3, YJ9Nvnvmfj Slides Exa mined: In-house known positive controls were evaluated along with the test tiss ue. These control slides run alongside of the patients sample show appropriate staining. Internal positive and negative controls when available are evaluated I mmunohistochemistry technical testing was performed at [facility], Pathology Laboratory where it was developed [...] to perfo high complexity clinical laboratory testing.POCT-GLUCOSE [id number] 12:01:00* Test Item Value Reference Range Interpretation Comments POC-GLUCOSE METER (BEAKER) (test code = 1538) 157 mg/dL 70-[address] [facility] [address] [facility] [address] CBC W/PLT COUNT & AUTO [id number] 07:05:00* Test Item Value Reference Range Interpretation [...] Received comment: User comments: Slide comments: POCT-GLUCOSE [id number] 06:09:00* Test Item Value Reference Range Interpretation Comments POC-GLUCOSE METER (BEAKER) (test code = 1538) 148 mg/dL 70-[address] [facility] [address] [facility] [address] [id number] 05:03:00* Test Item Value Reference Range Interpretation Comments MAGNESIUM (BEAKER) (test code = 627) 1.7 mg/dL 1.6-2.6 BASIC METABOLIC [id number] 05:03:00* Test Item Value Reference Range Interpretation [...] FOR DIALYSIS PATIENTS. Specimen moderately ictericHEPATIC FUNCTION [id number] 05:03:00* Test Item Value Reference Range Interpretation [...] 347) 112 U/L 6-55 H Specimen moderately ubzhfkgRDNT4878-92-87 04:56:00* Test Item Value Reference Range Interpretation Comments PARTIAL THROMBOPLASTIN TIME (BEAKER) (test code = 760) 49.3 seconds 22.5-36.0 H PROTHROMBIN TIME/[id number] 04:55:00* Test Item Value Reference Range Interpretation Comments PROTIME (BEAKER) (test code = 759) 16.0 seconds 11.7-14.7 H INR (BEAKER) (test code = 370) 1.4 <=5.9 RECOMMENDED COUMADIN/WARFARIN INR THERAPY RANGESSTANDARD DOSE: 2.0 - 3.0 Inclu herb: PROPHYLAXIS for venous thrombosis, systemic embolization; TREATMENT for giulia ous thrombosis and/or pulmonary embolus.HIGH RISK: Target INR is 2.5-3.5 for pat ients with mechanical heart valves.POCT-GLUCOSE [id number] 00:01:00* Test Item Value Reference Range Interpretation Comments POC-GLUCOSE METER (BEAKER) (test code = 1538) 144 mg/dL 70-110 H TESTED AT [place] [id number] [facility] [address] POCT-GLUCOSE [id number] 18:04:00* Test Item Value Reference Range Interpretation Comments POC-GLUCOSE METER (BEAKER) (test code = 1538) 113 mg/dL 70-110 H TESTED AT [address] [address] POCT-GLUCOSE [id number] 11:48:00* Test Item Value Reference Range Interpretation Comments POC-GLUCOSE METER (BEAKER) (test code = 1538) 92 mg/dL 70-110 TESTED AT [place] [id number] [facility] [address] CBC W/PLT COUNT & AUTO [id number] 10:15:00* Test Item Value Reference Range Interpretation [...] Received comment: User comments: Slide comments: POCT-GLUCOSE [id number] 06:36:00* Test Item Value Reference Range Interpretation Comments POC-GLUCOSE METER (BEAKER) (test code = 1538) 107 mg/dL 70-[address] [facility] [address] [facility] [address] [id number] 05:42:00* Test Item Value Reference Range Interpretation Comments MAGNESIUM (BEAKER) (test code = 627) 1.9 mg/dL 1.6-2.6 Specimen slightly hemolyzed BASIC METABOLIC [id number] 05:42:00* Test Item Value Reference Range Interpretation [...] FOR DIALYSIS PATIENTS. Specimen moderately ictericHEPATIC FUNCTION [id number] 05:42:00* Test Item Value Reference Range Interpretation [...] 6-55 H Specimen slightly hemolyzed Specimen moderately [id number] 05:35:00* Test Item Value Reference Range Interpretation Comments PARTIAL THROMBOPLASTIN TIME (BEAKER) (test code = 760) 40.6 seconds 22.5-36.0 H PROTHROMBIN TIME/[id number] 05:34:00* Test Item Value Reference Range Interpretation Comments PROTIME (BEAKER) (test code = 759) 16.0 seconds 11.7-14.7 H INR (BEAKER) (test code = 370) 1.3 <=5.9 RECOMMENDED COUMADIN/WARFARIN INR THERAPY RANGESSTANDARD DOSE: 2.0 - 3.0 Inclu herb: PROPHYLAXIS for venous thrombosis, systemic embolization; TREATMENT for giulia ous thrombosis and/or pulmonary embolus.HIGH RISK: Target INR is 2.5-3.5 for pat ients with mechanical heart valves.POCT-GLUCOSE [id number] 00:32:00* Test Item Value Reference Range Interpretation Comments POC-GLUCOSE METER (BEAKER) (test code = 1538) 106 mg/dL 70-[address] [facility] [address] [facility] [address] RAD, CHEST, 1 VIEW, NON [id number] 18:48:00Reason for exam:->SOBShould this be performed at the bedside?->YesFINAL REPORT Chest dated 07/03/2018 COMPARISON: Same day Clinical Information: SOB Comment: Heart is enlarged. Pulmonary vasculature is indistinct. Interstitial disease is seen bilaterally suggestive of vascular congestion or pulmonary edema. No pleural effusion or pneumothorax is seen. Tracheostomy tube and feeding tube remain in place. Impression: No interval change. Signed: Keith Garciaort Verified Date/Time: 07/03/2018 18:48:11 Reading Location: [facility] C0[facility] Consult Reading Room -GLUCOSE [id number] 17:36:00* Test Item Value Reference Range Interpretation Comments POC-GLUCOSE METER (BEAKER) (test code = 1538) 130 mg/dL 70-[address] [facility] [address] [facility] [address] HEMOGLOBIN AND [id number] 14:44:00* Test Item Value Reference Range Interpretation Comments HEMOGLOBIN (BEAKER) (test code = 410) 8.1 GM/DL 13.7-17.5 L HEMATOCRIT (BEAKER) (test code = 411) 25.8 % 40.1-51.0 L CBC W/PLT COUNT & AUTO [id number] 12:53:00* Test Item Value Reference Range Interpretation [...] MDReport Verified Date/Time: 07/03/2018 07:23:40 Reading Location: [facility] Radiology Reading Room -GLUCOSE [id number] 06:01:00* Test Item Value Reference Range Interpretation Comments POC-GLUCOSE METER (BEAKER) (test code = 1538) 203 mg/dL 70-110 H TESTED AT [address] [address] [id number] 05:39:00* Test Item Value Reference Range Interpretation Comments MAGNESIUM (BEAKER) (test code = 627) 1.7 mg/dL 1.6-2.6 BASIC METABOLIC [id number] 05:39:00* Test Item Value Reference Range Interpretation [...] FOR DIALYSIS PATIENTS. Specimen moderately ictericHEPATIC FUNCTION [id number] 05:39:00* Test Item Value Reference Range Interpretation [...] 347) 125 U/L 6-55 H Specimen moderately [id number] 05:10:00* Test Item Value Reference Range Interpretation Comments PARTIAL THROMBOPLASTIN TIME (BEAKER) (test code = 760) 41.9 seconds 22.5-36.0 H PROTHROMBIN TIME/[id number] 05:09:00* Test Item Value Reference Range Interpretation [...] pat ients with mechanical heart valves.HEMOGLOBIN AND [id number] 00:58:00 * Test Item Value Reference Range Interpretation Comments HEMOGLOBIN (BEAKER) (test code = 410) 8.3 GM/DL 13.7-17.5 L HEMATOCRIT (BEAKER) (test code = 411) 26.1 % 40.1-51.0 L POCT-GLUCOSE [id number] 23:25:00* Test Item Value Reference Range Interpretation Comments POC-GLUCOSE METER (BEAKER) (test code = 1538) 179 mg/dL 70-[address] [facility] [address] [facility] [address] POCT-GLUCOSE [id number] 18:01:00* Test Item Value Reference Range Interpretation Comments POC-GLUCOSE METER (BEAKER) (test code = 1538) 175 mg/dL 70-110 H TESTED AT [place] [id number] [facility] [address] HEMOGLOBIN AND [id number] 17:25:00* Test Item Value Reference Range Interpretation Comments HEMOGLOBIN (BEAKER) (test code = 410) 7.9 GM/DL 13.7-17.5 L HEMATOCRIT (BEAKER) (test code = 411) 24.0 % 40.1-51.0 L CBC W/PLT COUNT & AUTO [id number] 13:26:00* Test Item Value Reference Range Interpretation [...] Received comment: User comments: Slide comments: POCT-GLUCOSE [id number] 11:58:00* Test Item Value Reference Range Interpretation Comments POC-GLUCOSE METER (BEAKER) (test code = 1538) 148 mg/dL 70-[address] [facility] [address] [facility] [address] RAD, CHEST, 1 VIEW, NON [id number] 07:41:00Reason for exam:->Pulmonary edema evaluationShould this be [...] [place] Verified Date/Time: 07/02/2018 07:41:39 Reading Location: [facility] Radiology Reading Room [id number] 07:01:00* Test Item Value Reference Range Interpretation Comments PARTIAL THROMBOPLASTIN TIME (BEAKER) (test code = 760) 46.2 seconds 22.5-36.0 H PROTHROMBIN TIME/[id number] 06:59:00* Test Item Value Reference Range Interpretation [...] pat ients with mechanical heart valves.HEMOGLOBIN AND [id number] 06:48:00 * Test Item Value Reference Range Interpretation Comments HEMOGLOBIN (BEAKER) (test code = 410) 7.9 GM/DL 13.7-17.5 L HEMATOCRIT (BEAKER) (test code = 411) 25.0 % 40.1-51.0 L POCT-GLUCOSE [id number] 06:17:00* Test Item Value Reference Range Interpretation Comments POC-GLUCOSE METER (BEAKER) (test code = 1538) 170 mg/dL 70-[address] [facility] [address] [facility] [address] CREATINE KINASE (CK)2018-07-02 03:50:00* Test Item Value Reference Range Interpretation Comments CREATINE KINASE TOTAL (BEAKER) (test code = 380) 17 U/L 29-20 0 L [id number] 03:44:00* Test Item Value Reference Range Interpretation Comments MAGNESIUM (BEAKER) (test code = 627) 1.9 mg/dL 1.6-2.6 Specimen slightly hemolyzed BASIC METABOLIC [id number] 03:44:00* Test Item Value Reference Range Interpretation [...] FOR DIALYSIS PATIENTS. Specimen moderately ictericHEPATIC FUNCTION [id number] 03:44:00* Test Item Value Reference Range Interpretation [...] Specimen slightly hemolyzed Specimen moderately ictericHEMOGLOBIN AND [id number] 03:08:00* Test Item Value Reference Range Interpretation Comments HEMOGLOBIN (BEAKER) (test code = 410) 7.9 GM/DL 13.7-17.5 L HEMATOCRIT (BEAKER) (test code = 411) 24.8 % 40.1-51.0 L POCT-GLUCOSE [id number] 23:24:00* Test Item Value Reference Range Interpretation Comments POC-GLUCOSE METER (BEAKER) (test code = 1538) 155 mg/dL 70-[address] [facility] [address] [place] [address] HEMOGLOBIN AND [id number] 18:35:00* Test Item Value Reference Range Interpretation Comments HEMOGLOBIN (BEAKER) (test code = 410) 7.9 GM/DL 13.7-17.5 L HEMATOCRIT (BEAKER) (test code = 411) 24.1 % 40.1-51.0 L POCT-GLUCOSE [id number] 17:49:00* Test Item Value Reference Range Interpretation Comments POC-GLUCOSE METER (BEAKER) (test code = 1538) 148 mg/dL 70-[address] [facility] [address] [facility] [address] POCT-GLUCOSE [id number] 11:44:00* Test Item Value Reference Range Interpretation Comments POC-GLUCOSE METER (BEAKER) (test code = 1538) 151 mg/dL 70-110 H TESTED AT [place] [id number] [facility] [address] HEMOGLOBIN AND [id number] 10:59:00* Test Item Value Reference Range Interpretation Comments HEMOGLOBIN (BEAKER) (test code = 410) 8.0 GM/DL 13.7-17.5 L HEMATOCRIT (BEAKER) (test code = 411) 24.0 % 40.1-51.0 L RAD, CHEST, 1 VIEW, NON [id number] 08:47:00Reason for exam:->Pulmonary edema evaluationShould this be [...] Verified Date/Time: 07/01/2018 08:47:41 Reading Location: [facility] Diagnostic Imaging Reading Room [place] [address] -GLUCOSE [id number] 06:47:00 * Test Item Value Reference Range Interpretation Comments POC-GLUCOSE METER (BEAKER) (test code = 1538) 153 mg/dL 70-[address] [facility] [address] [facility] [address] [id number] 04:06:00* Test Item Value Reference Range Interpretation Comments MAGNESIUM (BEAKER) (test code = 627) 1.9 mg/dL 1.6-2.6 BASIC METABOLIC [id number] 04:06:00* Test Item Value Reference Range Interpretation [...] FOR DIALYSIS PATIENTS. Specimen moderately ictericHEPATIC FUNCTION [id number] 04:06:00* Test Item Value Reference Range Interpretation [...] 347) 145 U/L 6-55 H Specimen moderately [id number] 03:50:00* Test Item Value Reference Range Interpretation Comments PARTIAL THROMBOPLASTIN TIME (BEAKER) (test code = 760) 46.8 seconds 22.5-36.0 H PROTHROMBIN TIME/[id number] 03:49:00* Test Item Value Reference Range Interpretation [...] mechanical heart valves.CBC W/PLT COUNT & AUTO [id number] 03:32:00* Test Item Value Reference Range Interpretation [...] 2801) 2 % 0-1 H HEMOGLOBIN AND [id number] 03:20:00* Test Item Value Reference Range Interpretation Comments HEMOGLOBIN (BEAKER) (test code = 410) 7.7 GM/DL 13.7-17.5 L HEMATOCRIT (BEAKER) (test code = 411) 24.3 % 40.1-51.0 L POCT-GLUCOSE [id number] 23:51:00* Test Item Value Reference Range Interpretation Comments POC-GLUCOSE METER (BEAKER) (test code = 1538) 146 mg/dL 70-[address] [facility] [address] [facility] [address] POCT-GLUCOSE [id number] 17:40:00* Test Item Value Reference Range Interpretation Comments POC-GLUCOSE METER (BEAKER) (test code = 1538) 194 mg/dL 70-110 H TESTED AT [address] [address] HEMOGLOBIN AND [id number] 17:33:00* Test Item Value Reference Range Interpretation Comments HEMOGLOBIN (BEAKER) (test code = 410) 7.9 GM/DL 13.7-17.5 L HEMATOCRIT (BEAKER) (test code = 411) 24.6 % 40.1-51.0 L CBC W/PLT COUNT & AUTO [id number] 15:29:00* Test Item Value Reference Range Interpretation [...] Received comment: User comments: Slide comments: POCT-GLUCOSE [id number] 11:51:00* Test Item Value Reference Range Interpretation Comments POC-GLUCOSE METER (BEAKER) (test code = 1538) 191 mg/dL 70-[address] [facility] [address] [facility] [address] HEMOGLOBIN AND [id number] 09:19:00* Test Item Value Reference Range Interpretation Comments HEMOGLOBIN (BEAKER) (test code = 410) 7.8 GM/DL 13.7-17.5 L HEMATOCRIT (BEAKER) (test code = 411) 24.1 % 40.1-51.0 L RAD, CHEST, 1 VIEW, NON [id number] 08:34:00Reason for exam:->Pulmonary edema evaluationShould this be [...] place. Impression: No interval change. Signed: Keith Garc[place]enet [place] Verified Date/Time: 06/30/2018 08:34:20 Reading Location: [facility] C013W Consult Reading Room ESIUM 2018-06-30 07:03:00* Test Item Value Reference Range Interpretation Comments MAGNESIUM (BEAKER) (test code = 627) 2.1 mg/dL 1.6-2.6 BASIC METABOLIC [id number] 07:03:00* Test Item Value Reference Range Interpretation [...] FOR DIALYSIS PATIENTS. Specimen moderately ictericHEPATIC FUNCTION [id number] 07:03:00* Test Item Value Reference Range Interpretation [...] 162 U/L 6-55 H Specimen moderately ictericPOCT-GLUCOSE [id number] 06:08:00* Test Item Value Reference Range Interpretation Comments POC-GLUCOSE METER (BEAKER) (test code = 1538) 127 mg/dL 70-[address] [facility] [address] [facility] [address] [id number] 06:06:00* Test Item Value Reference Range Interpretation Comments PARTIAL THROMBOPLASTIN TIME (BEAKER) (test code = 760) 27.4 seconds 22.5-36.0 PROTHROMBIN TIME/[id number] 06:05:00* Test Item Value Reference Range Interpretation [...] pat ients with mechanical heart valves.HEMOGLOBIN AND [id number] 00:04:00 * Test Item Value Reference Range Interpretation Comments HEMOGLOBIN (BEAKER) (test code = 410) 8.3 GM/DL 13.7-17.5 L HEMATOCRIT (BEAKER) (test code = 411) 25.4 % 40.1-51.0 L POCT-GLUCOSE [id number] 00:02:00* Test Item Value Reference Range Interpretation Comments POC-GLUCOSE METER (BEAKER) (test code = 1538) 140 mg/dL 70-110 H TESTED AT [place] [id number] [facility] [address] POCT-GLUCOSE [id number] 17:41:00* Test Item Value Reference Range Interpretation Comments POC-GLUCOSE METER (BEAKER) (test code = 1538) 155 mg/dL 70-110 H TESTED AT [address] [address] HEMOGLOBIN AND [id number] 16:00:00* Test Item Value Reference Range Interpretation Comments HEMOGLOBIN (BEAKER) (test code = 410) 8.2 GM/DL 13.7-17.5 L HEMATOCRIT (BEAKER) (test code = 411) 25.5 % 40.1-51.0 L BLOOD GAS, [id number] 15:50:00* Test Item Value Reference Range Interpretation [...] 30.0 % RAD, CHEST, 1 VIEW, NON [id number] 14:58:00Reason for exam:->Pulmonary edema evaluationShould this be performed at the bedside?->YesFINAL REPORT AP chest HISTORY: Pulmonary edema. COMPARISON: 06/28/2018. IMPRESSION: Tracheostomy tube and feeding tube present. Hypoinflation. Mild interstitial edema, increased from previous. No effusion or pneumothorax. Signed: Eric Andrade MDReport Verified Date/Time: 06/29/2018 14:58:10 Reading Location: [address] Transitional Reading Room W/PLT COUNT & [...] Received comment: User comments: Slide comments: POCT-GLUCOSE [id number] 12:20:00* Test Item Value Reference Range Interpretation Comments POC-GLUCOSE METER (BEAKER) (test code = 1538) 154 mg/dL 70-[address] [facility] [address] [facility] [address] [id number] 06:44:00* Test Item Value Reference Range Interpretation Comments PARTIAL THROMBOPLASTIN TIME (BEAKER) (test code = 760) 40.7 seconds 22.5-36.0 H PROTHROMBIN TIME/[id number] 06:43:00* Test Item Value Reference Range Interpretation Comments PROTIME (BEAKER) (test code = 759) 16.8 seconds 11.7-14.7 H INR (BEAKER) (test code = 370) 1.4 <=5.9 RECOMMENDED COUMADIN/WARFARIN INR THERAPY RANGESSTANDARD DOSE: 2.0 - 3.0 Inclu herb: PROPHYLAXIS for venous thrombosis, systemic embolization; TREATMENT for giulia ous thrombosis and/or pulmonary embolus.HIGH RISK: Target INR is 2.5-3.5 for pat ients with mechanical heart valves.POCT-GLUCOSE [id number] 06:07:00* Test Item Value Reference Range Interpretation Comments POC-GLUCOSE METER (BEAKER) (test code = 1538) 177 mg/dL 70-110 H TESTED AT [address] [address] [id number] 04:04:00* Test Item Value Reference Range Interpretation Comments MAGNESIUM (BEAKER) (test code = 627) 2.0 mg/dL 1.6-2.6 Specimen slightly hemolyzed BASIC METABOLIC [id number] 04:04:00* Test Item Value Reference Range Interpretation [...] FOR DIALYSIS PATIENTS. Specimen markedly ictericHEPATIC FUNCTION [id number] 04:04:00* Test Item Value Reference Range Interpretation [...] Specimen slightly hemolyzed Specimen markedly ictericHEMOGLOBIN AND [id number] 01:37:00* Test Item Value Reference Range Interpretation Comments HEMOGLOBIN (BEAKER) (test code = 410) 7.7 GM/DL 13.7-17.5 L HEMATOCRIT (BEAKER) (test code = 411) 23.9 % 40.1-51.0 L POCT-GLUCOSE [id number] 00:12:00* Test Item Value Reference Range Interpretation Comments POC-GLUCOSE METER (BEAKER) (test code = 1538) 158 mg/dL 70-110 H TESTED AT [address] [address] SODIUM, RANDOM [id number] 20:36:00* Test Item Value Reference Range Interpretation Comments SODIUM URINE (BEAKER) (test code = 243) < meq/L Reference Range: No NormalsPOCT-GLUCOSE [id number] 20:24:00* Test Item Value Reference Range Interpretation Comments POC-GLUCOSE METER (BEAKER) (test code = 1538) 169 mg/dL 70-110 H TESTED AT [address] [address] HEMOGLOBIN AND [id number] 20:24:00* Test Item Value Reference Range Interpretation Comments HEMOGLOBIN (BEAKER) (test code = 410) 6.9 GM/DL 13.7-17.5 L HEMATOCRIT (BEAKER) (test code = 411) 21.1 % 40.1-51.0 L HEMOGLOBIN AND [id number] 18:35:00* Test Item Value Reference Range Interpretation Comments HEMOGLOBIN (BEAKER) (test code = 410) 6.7 GM/DL 13.7-17.5 L HEMATOCRIT (BEAKER) (test code = 411) 20.7 % 40.1-51.0 L YARI ANTIGEN WITH REFLEX TO [id number] 18:29:00* Test Item Value Reference Range Interpretation Comments YARI ANTIGEN (BEAKER) (test code = 1782) Positive YARI ANTIGEN [id number] 18:29:00* Test Item Value Reference Range Interpretation Comments YARI ANTIGEN TITER (BEAKER) (test code = 737) :2 POCT-GLUCOSE [id number] 17:43:00* Test Item Value Reference Range Interpretation Comments POC-GLUCOSE METER (BEAKER) (test code = 1538) 108 mg/dL 70-110 TESTED AT [place] [address] POCT-GLUCOSE [id number] 12:27:00* Test Item Value Reference Range Interpretation Comments POC-GLUCOSE METER (BEAKER) (test code = 1538) 152 mg/dL 70-110 H TESTED AT [place] [address] CBC W/PLT COUNT & AUTO [id number] 12:16:00* Test Item Value Reference Range Interpretation [...] 40.1-51.0 L RAD, CHEST, 1 VIEW, NON [id number] 09:28:00Reason for exam:->Pulmonary edema evaluationShould this be [...] [place] Verified Date/Time: 06/28/2018 09:28:59 Reading Location: [facility] Radiology Reading Room - GLUCOSE [id number] 06:13:00* Test Item Value Reference Range Interpretation Comments POC-GLUCOSE METER (BEAKER) (test code = 1538) 123 mg/dL 70-[address] [facility] [address] [facility] [address] BASIC METABOLIC [id number] 05:57:00* Test Item Value Reference Range Interpretation [...] NOT APPLICABLE FOR DIALYSIS PATIENTS. Specimen markedly [id number] 05:56:00* Test Item Value Reference Range Interpretation Comments MAGNESIUM (BEAKER) (test code = 627) 2.3 mg/dL 1.6-2.6 HEPATIC FUNCTION [id number] 05:56:00* Test Item Value Reference Range Interpretation [...] 347) 180 U/L 6-55 H Specimen markedly [id number] 05:43:00* Test Item Value Reference Range Interpretation Comments PARTIAL THROMBOPLASTIN TIME (BEAKER) (test code = 760) 45.3 seconds 22.5-36.0 H PROTHROMBIN TIME/[id number] 05:42:00* Test Item Value Reference Range Interpretation Comments PROTIME (BEAKER) (test code = 759) 17.5 seconds 11.7-14.7 H INR (BEAKER) (test code = 370) 1.5 <=5.9 RECOMMENDED COUMADIN/WARFARIN INR THERAPY RANGESSTANDARD DOSE: 2.0 - 3.0 Inclu herb: PROPHYLAXIS for venous thrombosis, systemic embolization; TREATMENT for giulia ous thrombosis and/or pulmonary embolus.HIGH RISK: Target INR is 2.5-3.5 for pat ients with mechanical heart valves.POCT-GLUCOSE [id number] 00:23:00* Test Item Value Reference Range Interpretation Comments POC-GLUCOSE METER (BEAKER) (test code = 1538) 183 mg/dL 70-110 H TESTED AT [address] [address] HEMOGLOBIN AND [id number] 20:24:00* Test Item Value Reference Range Interpretation Comments HEMOGLOBIN (BEAKER) (test code = 410) 7.4 GM/DL 13.7-17.5 L HEMATOCRIT (BEAKER) (test code = 411) 22.3 % 40.1-51.0 L POCT-GLUCOSE [id number] 18:08:00* Test Item Value Reference Range Interpretation Comments POC-GLUCOSE METER (BEAKER) (test code = 1538) 171 mg/dL 70-110 H TESTED AT [address] [address] TISSUE [id number] 17:16:00Surgical Pathology Report Case: [id number] Authorizing Provider: Seven Tubbs MD Collected: 06/19/2018 1536 Ordering Location: [address] Received: 06/20/2018 0750 Pathologist: Jb Brock MD Specimen: Cecum, Cecal Ulcer Bx COLON, CECUM, ULCER, BIOPSY: - ATYPICAL LYMPHOID PROLIFERATION 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 is case was also reviewed by Dr. Samm Arenas, [facility] Hematopathology, who concurs with the diagnosis. [id number] Cecal ulcer biops yThe specimen is received in a formalin-filled container and labeled with the p atient's information and labeled "cecal ulcer biopsy" and consists of a 0.2 cm f ragment of guajardo tissue, submitted entirely A1. CG/pl Performed.The following carlos tional immunohistochemical stains, were evaluated on the biopsy with appropriate controls:CD3, CD5, CD10, CD20, BCL-2, BCL-6, CyclinD1, Ki-67, [place], Lambda, PA X-5.CD3, CD5 and BCL-2 have similar patterns and highlight T lymphocytes. CD20 a nd PAX-5 highlights increased large, atypical appearing B cells. [place] and [place]ana da demonstrate polytypic plasma cells. [...] KI-67.Immunohistochemistry technical te sting was performed at [facility], Pathology Laboratory wh ere it was [...] and its performance c haracteristics determined by [facility], Pathology Laboratory. It has not been cleared or approved by the U.S. Food and Drug Administration. T timo FDA has determined that such clearance or approval is not necessary. The test is used for clinical purposes. It should not be regarded as investigational or for research. This laboratory is certified under the Clinical Laboratory Improve ment Amendments of 1988 (CLIA-88) as qualified to perform high complexity clinic al laboratory testing.[facility], Department of Pathology, [address] [place] [address], [facility], [address] [place] [address], [facility], [facility] of [facility], [address] [place] [address], b-TYPE NATRIURETIC FACTOR (BNP) 2018-06-27 13:44:00* Test Item Value Reference Range Interpretation Comments B-TYPE NATRIURETIC PEPTIDE (BEAKER) (test code = 700) 179 pg/mL 0-100 H HEMOGLOBIN AND [id number] 13:18:00* Test Item Value Reference Range Interpretation Comments HEMOGLOBIN (BEAKER) (test code = 410) 7.9 GM/DL 13.7-17.5 L HEMATOCRIT (BEAKER) (test code = 411) 23.6 % 40.1-51.0 L CBC W/PLT COUNT & AUTO [id number] 13:10:00* Test Item Value Reference Range Interpretation [...] [place] Verified Date/Time: 06/27/2018 12:39:10 Reading Location: [facility] Radiology Reading Room -GLUCOSE [id number] 11:38:00 * Test Item Value Reference Range Interpretation Comments POC-GLUCOSE METER (BEAKER) (test code = 1538) 181 mg/dL 70-[address] [facility] [address] [facility] [id number] HEMOGLOBIN AND [id number] 09:34:00* Test Item Value Reference Range Interpretation Comments HEMOGLOBIN (BEAKER) (test code = 410) 8.1 GM/DL 13.7-17.5 L HEMATOCRIT (BEAKER) (test code = 411) 24.9 % 40.1-51.0 L POCT-GLUCOSE [id number] 06:28:00* Test Item Value Reference Range Interpretation Comments POC-GLUCOSE METER (BEAKER) (test code = 1538) 161 mg/dL 70-[address] [facility] [address] [facility] [address] BASIC METABOLIC [id number] 06:04:00* Test Item Value Reference Range Interpretation [...] NOT APPLICABLE FOR DIALYSIS PATIENTS. Specimen markedly [id number] 06:00:00* Test Item Value Reference Range Interpretation Comments MAGNESIUM (BEAKER) (test code = 627) 1.9 mg/dL 1.6-2.6 HEPATIC FUNCTION [id number] 06:00:00* Test Item Value Reference Range Interpretation [...] 347) 170 U/L 6-55 H Specimen markedly [id number] 05:56:00* Test Item Value Reference Range Interpretation Comments PARTIAL THROMBOPLASTIN TIME (BEAKER) (test code = 760) 41.4 seconds 22.5-36.0 H PROTHROMBIN TIME/[id number] 05:55:00* Test Item Value Reference Range Interpretation [...] pat ients with mechanical heart valves.HEMOGLOBIN AND [id number] 05:33:00 * Test Item Value Reference Range Interpretation Comments HEMOGLOBIN (BEAKER) (test code = 410) 7.5 GM/DL 13.7-17.5 L HEMATOCRIT (BEAKER) (test code = 411) 23.3 % 40.1-51.0 L POCT-GLUCOSE [id number] 00:28:00* Test Item Value Reference Range Interpretation Comments POC-GLUCOSE METER (BEAKER) (test code = 1538) 153 mg/dL 70-[address] [facility] [address] [facility] [address] HEMOGLOBIN AND [id number] 00:15:00* Test Item Value Reference Range Interpretation Comments HEMOGLOBIN (BEAKER) (test code = 410) 6.8 GM/DL 13.7-17.5 L HEMATOCRIT (BEAKER) (test code = 411) 20.6 % 40.1-51.0 L HEMOGLOBIN AND [id number] 20:31:00* Test Item Value Reference Range Interpretation Comments HEMOGLOBIN (BEAKER) (test code = 410) 7.4 GM/DL 13.7-17.5 L HEMATOCRIT (BEAKER) (test code = 411) 22.5 % 40.1-51.0 L HEMOGLOBIN AND [id number] 18:54:00* Test Item Value Reference Range Interpretation Comments HEMOGLOBIN (BEAKER) (test code = 410) 7.4 GM/DL 13.7-17.5 L HEMATOCRIT (BEAKER) (test code = 411) 22.7 % 40.1-51.0 L POCT-GLUCOSE [id number] 18:17:00* Test Item Value Reference Range Interpretation Comments POC-GLUCOSE METER (BEAKER) (test code = 1538) 133 mg/dL 70-[address] [facility] [address] [facility] [address] [id number] 16:32:00* Test Item Value Reference Range Interpretation Comments FIBRINOGEN LEVEL (BEAKER) (test code = 658) 331 mg/dl 225-434 PT/[id number] 15:10:00* Test Item Value Reference Range Interpretation [...] pat ients with mechanical heart valves.HEMOGLOBIN AND [id number] 14:55:00 * Test Item Value Reference Range Interpretation Comments HEMOGLOBIN (BEAKER) (test code = 410) 7.7 GM/DL 13.7-17.5 L HEMATOCRIT (BEAKER) (test code = 411) 24.0 % 40.1-51.0 L CBC W/PLT COUNT & AUTO [id number] 14:09:00* Test Item Value Reference Range Interpretation [...] Received comment: User comments: Slide comments: BLOOD [id number] 14:03:00* Test Item Value Reference Range Interpretation Comments CULTURE (BEAKER) (test code = 1095) No growth in 5 days BLOOD [id number] 14:03:00* Test Item Value Reference Range Interpretation Comments CULTURE (BEAKER) (test code = 1095) No growth in 5 days POCT-GLUCOSE [id number] 11:51:00* Test Item Value Reference Range Interpretation Comments POC-GLUCOSE METER (BEAKER) (test code = 1538) 176 mg/dL 70-[address] [facility] [address] [facility] [address] HEMOGLOBIN AND [id number] 08:23:00* Test Item Value Reference Range Interpretation Comments HEMOGLOBIN (BEAKER) (test code = 410) 6.2 GM/DL 13.7-17.5 L HEMATOCRIT (BEAKER) (test code = 411) 18.9 % 40.1-51.0 L POCT-GLUCOSE [id number] 07:35:00* Test Item Value Reference Range Interpretation Comments POC-GLUCOSE METER (BEAKER) (test code = 1538) 172 mg/dL 70-[address] [facility] [address] [facility] [address] RAD, CHEST, 1 VIEW, NON [id number] 07:26:00Reason for exam:->Pulmonary edema evaluationShould this be [...] osseous abnormalities are identified. Signed: Rafal Mad[facility] Verified Date/Time: 06/26/2018 07:26:15 Reading Location: [facility] Reading Room [id number] 05:04:00* Test Item Value Reference Range Interpretation Comments MAGNESIUM (BEAKER) (test code = 627) 1.9 mg/dL 1.6-2.6 BASIC METABOLIC [id number] 05:04:00* Test Item Value Reference Range Interpretation [...] FOR DIALYSIS PATIENTS. Specimen markedly ictericHEPATIC FUNCTION [id number] 05:04:00* Test Item Value Reference Range Interpretation [...] 347) 202 U/L 6-55 H Specimen markedly [id number] 04:54:00* Test Item Value Reference Range Interpretation Comments PARTIAL THROMBOPLASTIN TIME (BEAKER) (test code = 760) 39.3 seconds 22.5-36.0 H PROTHROMBIN TIME/[id number] 04:53:00* Test Item Value Reference Range Interpretation [...] pat ients with mechanical heart valves.HEMOGLOBIN AND [id number] 04:48:00 * Test Item Value Reference Range Interpretation Comments HEMOGLOBIN (BEAKER) (test code = 410) 7.2 GM/DL 13.7-17.5 L HEMATOCRIT (BEAKER) (test code = 411) 22.4 % 40.1-51.0 L HEMOGLOBIN AND [id number] 00:55:00* Test Item Value Reference Range Interpretation Comments HEMOGLOBIN (BEAKER) (test code = 410) 7.9 GM/DL 13.7-17.5 L HEMATOCRIT (BEAKER) (test code = 411) 24.4 % 40.1-51.0 L POCT-GLUCOSE [id number] 00:11:00* Test Item Value Reference Range Interpretation Comments POC-GLUCOSE METER (BEAKER) (test code = 1538) 130 mg/dL 70-[address] [facility] [address] [facility] [address] HEMOGLOBIN AND [id number] 21:55:00* Test Item Value Reference Range Interpretation Comments HEMOGLOBIN (BEAKER) (test code = 410) 7.8 GM/DL 13.7-17.5 L HEMATOCRIT (BEAKER) (test code = 411) 24.7 % 40.1-51.0 L HEMOGLOBIN AND [id number] 19:15:00* Test Item Value Reference Range Interpretation Comments HEMOGLOBIN (BEAKER) (test code = 410) 8.2 GM/DL 13.7-17.5 L HEMATOCRIT (BEAKER) (test code = 411) 25.5 % 40.1-51.0 L POCT-GLUCOSE [id number] 18:49:00* Test Item Value Reference Range Interpretation Comments POC-GLUCOSE METER (BEAKER) (test code = 1538) 159 mg/dL 70-[address] [facility] [address] [facility] [address] POCT-GLUCOSE [id number] 17:29:00* Test Item Value Reference Range Interpretation Comments POC-GLUCOSE METER (BEAKER) (test code = 1538) 104 mg/dL 70-110 TESTED AT [address] [address] [address], CTA [id number] 14:14:00FINAL REPORT TECHNIQUE: CTA of the abdomen [...] Verified Date/Time: 06/25/2018 14:14:40 Jovani manjarrez Location: [facility] C013Y CT Body Reading Room GLOBIN AND [id number] 12:47:00* Test Item Value Reference Range Interpretation Comments HEMOGLOBIN (BEAKER) (test code = 410) 7.9 GM/DL 13.7-17.5 L HEMATOCRIT (BEAKER) (test code = 411) 24.6 % 40.1-51.0 L POCT-GLUCOSE [id number] 12:19:00* Test Item Value Reference Range Interpretation Comments POC-GLUCOSE METER (BEAKER) (test code = 1538) 161 mg/dL 70-[address] [facility] [address] [facility] [address] CBC W/PLT COUNT & AUTO [id number] 10:47:00* Test Item Value Reference Range Interpretation [...] 40.1-51.0 L RAD, CHEST, 1 VIEW, NON [id number] 07:29:00Reason for exam:->Pulmonary edema evaluationShould this be [...] significant change. Signed: Andrew Sloan Verified Date/Time: 06/25/2018 07:29:59 Reading Location: [facility] Radiology Reading Room [facility] signed by: ANDREW SLOAN M.D. on 06/25/2018 07:29 AM POCT-GLUCOSE METER 2018-06-25 06:28:00* Test Item Value Reference Range Interpretation Comments POC-GLUCOSE METER (BEAKER) (test code = 1538) 174 mg/dL 70-[address] [facility] [address] [facility] [address] [id number] 05:46:00* Test Item Value Reference Range Interpretation Comments PARTIAL THROMBOPLASTIN TIME (BEAKER) (test code = 760) 52.2 seconds 22.5-36.0 H PROTHROMBIN TIME/[id number] 05:44:00* Test Item Value Reference Range Interpretation Comments PROTIME (BEAKER) (test code = 759) 18.3 seconds 11.7-14.7 H INR (BEAKER) (test code = 370) 1.6 <=5.9 RECOMMENDED COUMADIN/WARFARIN INR THERAPY RANGESSTANDARD DOSE: 2.0 - 3.0 Inclu herb: PROPHYLAXIS for venous thrombosis, systemic embolization; TREATMENT for giulia ous thrombosis and/or pulmonary embolus.HIGH RISK: Target INR is 2.5-3.5 for pat ients with mechanical heart valves.[id number] 05:41:00* Test Item Value Reference Range Interpretation Comments MAGNESIUM (BEAKER) (test code = 627) 2.2 mg/dL 1.6-2.6 BASIC METABOLIC [id number] 05:41:00* Test Item Value Reference Range Interpretation [...] FOR DIALYSIS PATIENTS. Specimen markedly ictericHEPATIC FUNCTION [id number] 05:41:00* Test Item Value Reference Range Interpretation [...] 24 U/L 29-20 0 L BLOOD GAS, [id number] 05:35:00* Test Item Value Reference Range Interpretation [...] code = 1819) 40.0 % LACTIC ACID, [id number] 05:32:00* Test Item Value Reference Range Interpretation Comments LACTATE BLOOD ARTERIAL (2) (BEAKER) (test code = 2874) 0.5 mmol/L 0.5-2.2 Specimen markedly ictericPOCT-GLUCOSE [id number] 00:35:00* Test Item Value Reference Range Interpretation Comments POC-GLUCOSE METER (BEAKER) (test code = 1538) 140 mg/dL 70-[address] [facility] [address] [facility] [address] HEMOGLOBIN AND [id number] 00:32:00* Test Item Value Reference Range Interpretation Comments HEMOGLOBIN (BEAKER) (test code = 410) 8.3 GM/DL 13.7-17.5 L HEMATOCRIT (BEAKER) (test code = 411) 25.6 % 40.1-51.0 L POCT-GLUCOSE [id number] 18:59:00* Test Item Value Reference Range Interpretation Comments POC-GLUCOSE METER (BEAKER) (test code = 1538) 124 mg/dL 70-[address] [facility] [address] [facility] [address] HEMOGLOBIN AND [id number] 18:36:00* Test Item Value Reference Range Interpretation Comments HEMOGLOBIN (BEAKER) (test code = 410) 8.1 GM/DL 13.7-17.5 L HEMATOCRIT (BEAKER) (test code = 411) 25.1 % 40.1-51.0 L POCT-GLUCOSE [id number] 12:21:00* Test Item Value Reference Range Interpretation Comments POC-GLUCOSE METER (BEAKER) (test code = 1538) 133 mg/dL 70-110 H TESTED AT [place] [id number] [facility] [address] RAD, CHEST, 1 VIEW, NON [id number] 09:38:00Reason for exam:->Pulmonary edema evaluationShould this be performed at the bedside?->YesFINAL REPORT Comparison: 06/23/2018 TECHNIQUE: Single view of the chest FINDINGS: Lung volumes are low. There is mild vascular congestion. No gross new lung parenchymal changes. Support lines and tubes are stable. Signed: Roberth Camp MDReport Verified Date/Time: 06/24/2018 09:38:51 Reading Location: [facility] Radiology Reading Room W/PLT COUNT & AUTO [id number] 09:00:00* Test Item Value Reference Range Interpretation [...] Received comment: User comments: Slide comments: POCT-GLUCOSE [id number] 06:48:00* Test Item Value Reference Range Interpretation Comments POC-GLUCOSE METER (BEAKER) (test code = 1538) 122 mg/dL 70-[address] [facility] [address] [facility] [address] POCT-GLUCOSE [id number] 05:09:00* Test Item Value Reference Range Interpretation Comments POC-GLUCOSE METER (BEAKER) (test code = 1538) 138 mg/dL 70-[address] [facility] [address] [facility] [address] BLOOD GAS, [id number] 04:42:00* Test Item Value Reference Range Interpretation [...] (BEAKER) (test code = 1819) 40.0 % [id number] 04:32:00* Test Item Value Reference Range Interpretation Comments MAGNESIUM (BEAKER) (test code = 627) 2.0 mg/dL 1.6-2.6 BASIC METABOLIC [id number] 04:32:00* Test Item Value Reference Range Interpretation [...] FOR DIALYSIS PATIENTS. Specimen markedly ictericHEPATIC FUNCTION [id number] 04:32:00* Test Item Value Reference Range Interpretation [...] U/L 6-55 H Specimen markedly ictericLACTIC ACID, [id number] 04:22:00* Test Item Value Reference Range Interpretation Comments LACTATE BLOOD ARTERIAL (2) (BEAKER) (test code = 2874) 0.6 mmol/L 0.5-2.2 Specimen moderately [id number] 04:17:00* Test Item Value Reference Range Interpretation Comments PARTIAL THROMBOPLASTIN TIME ([facility]) (test code = 760) 50.9 seconds 22.5-36.0 H PROTHROMBIN TIME/[id number] 04:16:00* Test Item Value Reference Range Interpretation Comments PROTIME ([facility]) (test code = 759) 18.0 seconds 11.7-14.7 H INR ([facility]) (test code = 370) 1.6 <=5.9 RECOMMENDED COUMADIN/WARFARIN INR THERAPY RANGESSTANDARD DOSE: 2.0 - 3.0 Inclu herb: PROPHYLAXIS for venous thrombosis, systemic embolization; TREATMENT for giulia ous thrombosis and/or pulmonary embolus.HIGH RISK: Target INR is 2.5-3.5 for pat ients with mechanical heart valves.POCT-GLUCOSE [id number] 00:29:00* Test Item Value Reference Range Interpretation Comments POC-GLUCOSE METER ([facility]) (test code = 1538) 113 mg/dL 70-110 H TESTED AT [place] [id number] [facility] [address] POCT-GLUCOSE [id number] 18:51:00* Test Item Value Reference Range Interpretation Comments POC-GLUCOSE METER ([facility]) (test code = 1538) 108 mg/dL 70-110 TESTED AT [address] [address] (CELLAVISION MANUAL DIFF)2018-06-23 16:53:00* Test Item Value [...] Slide comments: CBC W/PLT COUNT & AUTO [id number] 16:33:00* Test Item Value Reference Range Interpretation [...] 0-1 H CBC W/PLT COUNT & AUTO [id number] 13:52:00* Test Item Value Reference Range Interpretation [...] Received comment: User comments: Slide comments: POCT-GLUCOSE [id number] 11:56:00* Test Item Value Reference Range Interpretation Comments POC-GLUCOSE METER (BEAKER) (test code = 1538) 115 mg/dL 70-110 H TESTED AT [address] [address] [id number] 07:07:00* Test Item Value Reference Range Interpretation Comments MAGNESIUM (BEAKER) (test code = 627) 1.9 mg/dL 1.6-2.6 BASIC METABOLIC [id number] 07:07:00* Test Item Value Reference Range Interpretation [...] FOR DIALYSIS PATIENTS. Specimen markedly ictericHEPATIC FUNCTION [id number] 07:07:00* Test Item Value Reference Range Interpretation [...] U/L 6-55 H Specimen markedly ictericHEMOGLOBIN AND [id number] 06:51:00* Test Item Value Reference Range Interpretation Comments HEMOGLOBIN (BEAKER) (test code = 410) 8.2 GM/DL 13.7-17.5 L HEMATOCRIT (BEAKER) (test code = 411) 25.0 % 40.1-51.0 L POCT-GLUCOSE [id number] 06:44:00* Test Item Value Reference Range Interpretation Comments POC-GLUCOSE METER (BEAKER) (test code = 1538) 121 mg/dL 70-[address] [facility] [address] [place] [address] LACTIC ACID, [id number] 06:44:00* Test Item Value Reference Range Interpretation Comments LACTATE BLOOD ARTERIAL (2) (BEAKER) (test code = 2874) 0.7 mmol/L 0.5-2.2 Specimen markedly [id number] 06:40:00* Test Item Value Reference Range Interpretation Comments PARTIAL THROMBOPLASTIN TIME (BEAKER) (test code = 760) 44.7 seconds 22.5-36.0 H PROTHROMBIN TIME/[id number] 06:39:00* Test Item Value Reference Range Interpretation [...] pat ients with mechanical heart valves.BLOOD GAS, [id number] 06:36:00* Test Item Value Reference Range Interpretation [...] 40.0 % RAD, CHEST, 1 VIEW, NON [id number] 04:52:00Reason for exam:->Pulmonary edema evaluationShould this be [...] MDReport Verified Date/Time: 06/23/2018 04:52:15 Reading Location: [address] Neuro Reading Room U/S, ABDOMINAL, [id number] 03:15:00Abdomen limited area? Add comment if clarification [...] MDReport Verified Date/Time: 06/23/2018 03:15:49 Reading Location: [facility] C013V Neuro Reading Room GLOBIN AND [id number] 01:05:00* Test Item Value Reference Range Interpretation Comments HEMOGLOBIN (BEAKER) (test code = 410) 8.4 GM/DL 13.7-17.5 L HEMATOCRIT (BEAKER) (test code = 411) 25.9 % 40.1-51.0 L POCT-GLUCOSE [id number] 00:43:00* Test Item Value Reference Range Interpretation Comments POC-GLUCOSE METER (BEAKER) (test code = 1538) 180 mg/dL 70-110 H TESTED AT [address] [address] HEMOGLOBIN AND [id number] 21:03:00* Test Item Value Reference Range Interpretation Comments HEMOGLOBIN (BEAKER) (test code = 410) 8.6 GM/DL 13.7-17.5 L HEMATOCRIT (BEAKER) (test code = 411) 25.8 % 40.1-51.0 L POCT-GLUCOSE [id number] 18:20:00* Test Item Value Reference Range Interpretation Comments POC-GLUCOSE METER (BEAKER) (test code = 1538) 265 mg/dL 70-110 H TESTED AT [place] [id number] [facility] [address] HEMOGLOBIN AND [id number] 12:41:00* Test Item Value Reference Range Interpretation Comments HEMOGLOBIN (BEAKER) (test code = 410) 7.6 GM/DL 13.7-17.5 L HEMATOCRIT (BEAKER) (test code = 411) 23.4 % 40.1-51.0 L POCT-GLUCOSE [id number] 12:29:00* Test Item Value Reference Range Interpretation Comments POC-GLUCOSE METER (BEAKER) (test code = 1538) 150 mg/dL 70-110 H TESTED AT [address] [address] RAD, CHEST, 1 VIEW, NON [id number] 08:40:00Reason for exam:->Pulmonary edema evaluationShould this be [...] MDReport Verified Date/Time: 06/22/2018 08:40:31 Reading Location: [address] Transitional Reading Room - GLUCOSE [id number] 06:33:00* Test Item Value Reference Range Interpretation Comments POC-GLUCOSE METER (BEAKER) (test code = 1538) 159 mg/dL 70-[address] [facility] [address] [facility] [address] LACTIC ACID, [id number] 04:16:00* Test Item Value Reference Range Interpretation Comments LACTATE BLOOD ARTERIAL (2) (BEAKER) (test code = 2874) 0.5 mmol/L 0.5-2.2 Specimen markedly ictericBASIC METABOLIC [id number] 04:12:00* Test Item Value Reference Range Interpretation [...] APPLICABLE FOR DIALYSIS PATIENTS. Specimen markedly ictericCALCIUM, [id number] 04:10:00* Test Item Value Reference Range Interpretation Comments CALCIUM IONIZED (BEAKER) (test code = 698) 1.28 mmol/L 1.12-1.27 H PH, BLOOD (BEAKER) (test code = 1810) 7.41 Check serum Ionized Calcium level after 4 hours after IV Calcium replacement. BLOOD GAS, [id number] 04:05:00* Test Item Value Reference Range Interpretation [...] 40.0 % CBC W/PLT COUNT & AUTO [id number] 04:02:00* Test Item Value Reference Range Interpretation [...] code = 2801) 4 % 0-1 H [id number] 03:56:00* Test Item Value Reference Range Interpretation Comments MAGNESIUM (BEAKER) (test code = 627) 2.0 mg/dL 1.6-2.6 HEPATIC FUNCTION [id number] 03:56:00* Test Item Value Reference Range Interpretation [...] 347) 136 U/L 6-55 H Specimen markedly [id number] 03:53:00* Test Item Value Reference Range Interpretation Comments PARTIAL THROMBOPLASTIN TIME (BEAKER) (test code = 760) 40.4 seconds 22.5-36.0 H PROTHROMBIN TIME/[id number] 03:52:00* Test Item Value Reference Range Interpretation [...] pat ients with mechanical heart valves.HEMOGLOBIN AND [id number] 03:41:00 * Test Item Value Reference Range Interpretation Comments HEMOGLOBIN (BEAKER) (test code = 410) 8.1 GM/DL 13.7-17.5 L HEMATOCRIT (BEAKER) (test code = 411) 24.4 % 40.1-51.0 L BLOOD [id number] 01:25:00* Test Item Value Reference Range Interpretation Comments CULTURE (BEAKER) (test code = 1095) No growth in 5 days BLOOD [id number] 01:25:00* Test Item Value Reference Range Interpretation Comments CULTURE (BEAKER) (test code = 1095) No growth in 5 days HEMOGLOBIN AND [id number] 00:32:00* Test Item Value Reference Range Interpretation Comments HEMOGLOBIN (BEAKER) (test code = 410) 9.1 GM/DL 13.7-17.5 L HEMATOCRIT (BEAKER) (test code = 411) 27.2 % 40.1-51.0 L POCT-GLUCOSE [id number] 00:18:00* Test Item Value Reference Range Interpretation Comments POC-GLUCOSE METER (BEAKER) (test code = 1538) 189 mg/dL 70-[address] [facility] [address] [facility] [address] ANG, VISCERAL [id number] 22:13:00FINAL REPORT Mesenteric Arteriography Clinical History:GI bleed [...] inch guide wire was advanced. A 5 Vietnamese sheath was util ized. A 5 pashto Baker catheter was placed selectively into the [...] Rogel Verified Date/Time: 06/21/2018 22:13:37 Reading Location: [facility] P[address] [facility] Body Reading Room Electronically signed by: KAI ROGEL M.D. on 05/28 10:13 PM RAD, ABDOMEN/KUB, 1 VIEW [id number] 20:57:00Reason for exam:-> abdominal distention sp coilsFINAL [...] to edema or infection. Signed: Kyle Rae Verified Date/Time: 06/21/2018 20:57:09 Reading Location: [facility] C013W Consult Reading Room W/PLT COUNT & AUTO [id number] 18:35:00* Test Item Value Reference Range Interpretation [...] Received comment: User comments: Slide comments: POCT-GLUCOSE [id number] 17:53:00* Test Item Value Reference Range Interpretation Comments POC-GLUCOSE METER (BEAKER) (test code = 1538) 212 mg/dL 70-[address] [facility] [address] [place] [address] BASIC METABOLIC [id number] 17:52:00* Test Item Value Reference Range Interpretation [...] FOR DIALYSIS PATIENTS. Specimen markedly ictericLACTIC ACID, [id number] 17:45:00* Test Item Value Reference Range Interpretation Comments LACTATE BLOOD ARTERIAL (2) (BEAKER) (test code = 2874) 0.6 mmol/L 0.5-2.2 Specimen markedly ictericHEMOGLOBIN AND [id number] 17:32:00* Test Item Value Reference Range Interpretation Comments HEMOGLOBIN (BEAKER) (test code = 410) 7.4 GM/DL 13.7-17.5 L HEMATOCRIT (BEAKER) (test code = 411) 22.4 % 40.1-51.0 L BLOOD GAS, [id number] 17:25:00* Test Item Value Reference Range Interpretation [...] 0.0-5.0 H RAD, CHEST, 1 VIEW, NON [id number] 14:14:00Reason for exam:->line placementShould this be performed [...] Improvement in pulmonary opacities. Signed: Andrew Sloan [facility] Verified Date/Time: 06/21/2018 14:14:23 Reading Location: [address] Consult Reading Room GLOBIN AND [id number] 14:12:00* Test Item Value Reference Range Interpretation Comments HEMOGLOBIN (BEAKER) (test code = 410) 6.3 GM/DL 13.7-17.5 L HEMATOCRIT (BEAKER) (test code = 411) 19.7 % 40.1-51.0 L PROTHROMBIN [id number] 14:10:00* Test Item Value Reference Range Interpretation Comments PROTIME ([facility]) (test code = 759) 18.5 seconds 11.7-14.7 H INR (BEAKER) (test code = 370) 1.5 <=5.9 RECOMMENDED COUMADIN/WARFARIN INR THERAPY RANGESSTANDARD DOSE: 2.0 - 3.0 Inclu herb: PROPHYLAXIS for venous thrombosis, systemic embolization; TREATMENT for giulia ous thrombosis and/or pulmonary embolus.HIGH RISK: Target INR is 2.5-3.5 for pat ients with mechanical heart valves.[id number] 14:10:00* Test Item Value Reference Range Interpretation Comments FIBRINOGEN LEVEL (BEAKER) (test code = 658) 405 mg/dl 225-434 [id number] 14:10:00* Test Item Value Reference Range Interpretation Comments PARTIAL THROMBOPLASTIN TIME (BEAKER) (test code = 760) 43.9 seconds 22.5-36.0 H LACTIC ACID, [id number] 13:57:00* Test Item Value Reference Range Interpretation Comments LACTATE BLOOD ARTERIAL (2) (BEAKER) (test code = 2874) 0.8 mmol/L 0.5-2.2 Specimen markedly ictericPLATELET [id number] 13:47:00* Test Item Value Reference Range Interpretation Comments PLATELET COUNT (BEAKER) (test code = 756) 347 K/CU MM 150-450 CALCIUM, [id number] 13:46:00* Test Item Value Reference Range Interpretation Comments CALCIUM IONIZED (BEAKER) (test code = 698) 1.03 mmol/L 1.12-1.27 L PH, BLOOD (BEAKER) (test code = 1810) 7.40 POTASSIUM-STAT [id number] 13:45:00* Test Item Value Reference Range Interpretation Comments POTASSIUM (BEAKER) (test code = 379) 3.3 meq/L 3.6-5.5 L GLUCOSE-STAT [id number] 13:45:00* Test Item Value Reference Range Interpretation Comments GLUCOSE RANDOM (BEAKER) (test code = 652) 213 mg/dL 70-110 H HGB/HCT (H&H) - STAT [id number] 13:45:00* Test Item Value Reference Range Interpretation Comments HEMOGLOBIN (BEAKER) (test code = 410) 6.4 g/dL 13.0-16.8 L HEMATOCRIT (BEAKER) (test code = 411) 19.0 % 40.0-50.0 L BLOOD GAS, [id number] 13:45:00* Test Item Value Reference Range Interpretation [...] code = 1819) 40.0 % SODIUM NA-STAT [id number] 13:44:00* Test Item Value Reference Range Interpretation Comments SODIUM (BEAKER) (test code = 381) 142 meq/L 135-148 [id number] 12:39:00* Test Item Value Reference Range Interpretation Comments PROCALCITONIN (BEAKER) (test code = 3036) 3.47 ng/mL <0.05 H SEPSIS RISK (ng/mL)Low: 0.05-0.50Intermediate: 0.51-2.00High: > =2.01POCT-GLUCOSE [id number] 12:37:00* Test Item Value Reference Range Interpretation Comments POC-GLUCOSE METER (BEAKER) (test code = 1538) 242 mg/dL 70-[address] [facility] [address] [facility] [address] LACTIC ACID, [id number] 12:37:00* Test Item Value Reference Range Interpretation Comments LACTATE BLOOD ARTERIAL (2) (BEAKER) (test code = 2874) 1.0 mmol/L 0.5-2.2 Specimen markedly ictericBLOOD GAS, [id number] 12:23:00* Test Item Value Reference Range Interpretation [...] code = 1819) 40.0 % HEMOGLOBIN AND [id number] 11:40:00* Test Item Value Reference Range Interpretation Comments HEMOGLOBIN (BEAKER) (test code = 410) 7.3 GM/DL 13.7-17.5 L HEMATOCRIT (BEAKER) (test code = 411) 22.6 % 40.1-51.0 L URINALYSIS W/ REFLEX URINE [id number] 11:19:00* Test Item Value Reference Range Interpretation [...] SOURCE(BEAKER) (test code = 2795) OXYGEN SATURATION, [id number] 11:10:00* Test Item Value Reference Range Interpretation Comments O2 SATURATION (MEASURED) (BEAKER) (test code = 1455) 63.5 % POCT-GLUCOSE [id number] 09:37:00* Test Item Value Reference Range Interpretation Comments POC-GLUCOSE METER (BEAKER) (test code = 1538) 258 mg/dL 70-[address] [facility] [address] [facility] [address] CBC W/PLT COUNT & AUTO [id number] 08:40:00* Test Item Value Reference Range Interpretation [...] MDReport Verified Date/Time: 06/21/2018 07:46:59 Reading Location: [facility] Radiology Reading Room TIC FUNCTION [id number] 04:40:00* Test Item Value Reference Range Interpretation [...] U/L 6-55 H Specimen markedly ictericBASIC METABOLIC [id number] 04:40:00* Test Item Value Reference Range Interpretation [...] NOT APPLICABLE FOR DIALYSIS PATIENTS. Specimen markedly [id number] 04:26:00* Test Item Value Reference Range Interpretation Comments MAGNESIUM (BEAKER) (test code = 627) 2.1 mg/dL 1.6-2.6 LACTIC ACID, [id number] 04:17:00* Test Item Value Reference Range Interpretation Comments LACTATE BLOOD ARTERIAL (2) (BEAKER) (test code = 2874) 1.0 mmol/L 0.5-2.2 Specimen markedly [id number] 04:12:00* Test Item Value Reference Range Interpretation Comments PARTIAL THROMBOPLASTIN TIME (BEAKER) (test code = 760) 47.7 seconds 22.5-36.0 H PROTHROMBIN [id number] 04:11:00* Test Item Value Reference Range Interpretation [...] pat ients with mechanical heart valves.BLOOD GAS, [id number] 03:57:00* Test Item Value Reference Range Interpretation [...] (BEAKER) (test code = 1819) 40.0 % [id number] 01:01:00* Test Item Value Reference Range Interpretation Comments POTASSIUM (BEAKER) (test code = 379) 3.4 meq/L 3.5-5.1 L PRN - repeat glucose levels every 1 hour or as specified by insulin titration or ders until glucose level is less than 450 mg/dLCheck Serum Potassium level 2 roxy rs after oral potassium replacement completed or 30 min after intravenous potass ium replacement.[id number] 01:01:00* Test Item Value Reference Range Interpretation Comments MAGNESIUM (BEAKER) (test code = 627) 2.0 mg/dL 1.6-2.6 PRN - repeat glucose levels every 1 hour or as specified by insulin titration or ders until glucose level is less than 450 mg/dLCheck Serum Potassium level 2 roxy rs after oral potassium replacement completed or 30 min after intravenous potass ium replacement.[id number] 01:01:00* Test Item Value Reference Range Interpretation Comments GLUCOSE RANDOM (BEAKER) (test code = 652) 220 mg/dL 70-105 H PRN - repeat glucose levels every 1 hour or as specified by insulin titration or ders until glucose level is less than 450 mg/dLCheck Serum Potassium level 2 royx rs after oral potassium replacement completed or 30 min after intravenous potass ium replacement.CALCIUM, [id number] 00:47:00* Test Item Value Reference Range Interpretation Comments CALCIUM IONIZED (BEAKER) (test code = 698) 1.05 mmol/L 1.12-1.27 L PH, BLOOD (BEAKER) (test code = 1810) 7.48 Check serum Ionized Calcium level after 4 hours after IV Calcium replacement. BLOOD GAS, [id number] 21:09:00* Test Item Value Reference Range Interpretation [...] code = 1819) 40.0 % Before ventPOCT-GLUCOSE [id number] 17:55:00* Test Item Value Reference Range Interpretation Comments POC-GLUCOSE METER (BEAKER) (test code = 1538) 254 mg/dL 70-[address] [facility] [address] [facility] [address] BASIC METABOLIC [id number] 17:37:00* Test Item Value Reference Range Interpretation [...] FOR DIALYSIS PATIENTS. Specimen markedly ictericHEMOGLOBIN AND [id number] 17:18:00* Test Item Value Reference Range Interpretation Comments HEMOGLOBIN (BEAKER) (test code = 410) 8.2 GM/DL 13.7-17.5 L HEMATOCRIT (BEAKER) (test code = 411) 24.9 % 40.1-51.0 L CALCIUM, [id number] 17:14:00* Test Item Value Reference Range Interpretation Comments CALCIUM IONIZED (BEAKER) (test code = 698) 1.04 mmol/L 1.12-1.27 L PH, BLOOD (BEAKER) (test code = 1810) 7.49 Check serum Ionized Calcium level after 4 hours after IV Calcium replacement. POCT-GLUCOSE [id number] 17:00:00* Test Item Value Reference Range Interpretation Comments POC-GLUCOSE METER (BEAKER) (test code = 1538) 238 mg/dL 70-[address] [facility] [address] [facility] [address] POCT-GLUCOSE [id number] 11:59:00* Test Item Value Reference Range Interpretation Comments POC-GLUCOSE METER (BEAKER) (test code = 1538) 199 mg/dL 70-110 H TESTED AT [address] [address] BASIC METABOLIC [id number] 10:07:00* Test Item Value Reference Range Interpretation [...] FOR DIALYSIS PATIENTS. Specimen markedly ictericHEMOGLOBIN AND [id number] 09:56:00* Test Item Value Reference Range Interpretation Comments HEMOGLOBIN (BEAKER) (test code = 410) 8.2 GM/DL 13.7-17.5 L HEMATOCRIT (BEAKER) (test code = 411) 24.9 % 40.1-51.0 L SPUTUM CULTURE + GRAM [id number] 09:21:00* Test Item Value Reference Range Interpretation Comments CULTURE (BEAKER) (test code = 1095) <1+ Normal respiratory chase pr esent GRAM STAIN RESULT (BEAKER) (test code = 1123) <1+ WBCs GRAM STAIN RESULT (BEAKER) (test code = 44402) 0-5 epithelial cells GRAM STAIN RESULT (BEAKER) (test code = 60186) No organisms seen CBC W/PLT COUNT & AUTO [id number] 08:52:00* Test Item Value Reference Range Interpretation [...] quate Received comment: User comments: Slide comments: [id number] 08:27:00* Test Item Value Reference Range Interpretation Comments T3 TOTAL (BEAKER) (test code = 656) 55 ng/dL 48-159 CALCIUM, [id number] 05:17:00* Test Item Value Reference Range Interpretation Comments CALCIUM IONIZED (BEAKER) (test code = 698) 1.01 mmol/L 1.12-1.27 L PH, BLOOD (BEAKER) (test code = 1810) 7.43 HEPATIC FUNCTION [id number] 05:05:00* Test Item Value Reference Range Interpretation [...] U/L 6-55 H Specimen markedly ictericBASIC METABOLIC [id number] 05:05:00* Test Item Value Reference Range Interpretation [...] NOT APPLICABLE FOR DIALYSIS PATIENTS. Specimen markedly [id number] 05:04:00* Test Item Value Reference Range Interpretation Comments MAGNESIUM (BEAKER) (test code = 627) 2.2 mg/dL 1.6-2.6 RAD, CHEST, 1 VIEW, NON [id number] 04:59:00Reason for exam:->Pulmonary edema evaluationShould this be [...] MDReport Verified Date/Time: 06/20/2018 04:59:55 Reading Location: [address] Neuro Reading Room [id number] 04:44:00* Test Item Value Reference Range Interpretation Comments PARTIAL THROMBOPLASTIN TIME (BEAKER) (test code = 760) 45.0 seconds 22.5-36.0 H PROTHROMBIN [id number] 04:43:00* Test Item Value Reference Range Interpretation [...] pat ients with mechanical heart valves.LACTIC ACID, [id number] 04:41:00* Test Item Value Reference Range Interpretation Comments LACTATE BLOOD ARTERIAL (2) (BEAKER) (test code = 2874) 0.6 mmol/L 0.5-2.2 Specimen markedly ictericBLOOD GAS, [id number] 04:29:00* Test Item Value Reference Range Interpretation [...] code = 1819) 40.0 % BASIC METABOLIC [id number] 01:12:00* Test Item Value Reference Range Interpretation [...] FOR DIALYSIS PATIENTS. Specimen markedly ictericHEMOGLOBIN AND [id number] 00:24:00* Test Item Value Reference Range Interpretation Comments HEMOGLOBIN (BEAKER) (test code = 410) 8.3 GM/DL 13.7-17.5 L HEMATOCRIT (BEAKER) (test code = 411) 25.0 % 40.1-51.0 L POCT-GLUCOSE [id number] 00:18:00* Test Item Value Reference Range Interpretation Comments POC-GLUCOSE METER (BEAKER) (test code = 1538) 233 mg/dL 70-[address] [facility] [address] [facility] [address] HEMOGLOBIN AND [id number] 20:18:00* Test Item Value Reference Range Interpretation Comments HEMOGLOBIN (BEAKER) (test code = 410) 8.4 GM/DL 13.7-17.5 L HEMATOCRIT (BEAKER) (test code = 411) 25.0 % 40.1-51.0 L BASIC METABOLIC [id number] 19:06:00* Test Item Value Reference Range Interpretation [...] FOR DIALYSIS PATIENTS. Specimen markedly ictericBASIC METABOLIC [id number] 19:06:00* Test Item Value Reference Range Interpretation [...] FOR DIALYSIS PATIENTS. Specimen markedly ictericHEMOGLOBIN AND [id number] 18:48:00* Test Item Value Reference Range Interpretation Comments HEMOGLOBIN (BEAKER) (test code = 410) 8.3 GM/DL 13.7-17.5 L HEMATOCRIT (BEAKER) (test code = 411) 25.7 % 40.1-51.0 L POCT-GLUCOSE [id number] 17:33:00* Test Item Value Reference Range Interpretation Comments POC-GLUCOSE METER (BEAKER) (test code = 1538) 193 mg/dL 70-[address] [facility] [address] [facility] [address] CYTOMEGALOVIRUS ANTIBODY, [id number] 14:16:00* Test Item Value Reference Range Interpretation Comments CYTOMEGALOVIRUS, IGG (BEAKER) (test code = 3429) Negative Negat mumtaz, Equivocal CMV IgG Result Interpretation: </= 0.8 Al Negative 0.9-1.0 Al Equivocal > /=1.1 Al PositiveCYTOMEGALOVIRUS ANTIBODY, [id number] 14:16:00* Test Item Value Reference Range Interpretation Comments CYTOMEGALOVIRUS IGM ANTIBODY (BEAKER) (test code = 3437) Neg ative Negative, Equivocal CMV IgM Result Interpretation: </= 0.8 Al Negative 0.9-1.0 Al Equivocal > /= 1.1 Al PositiveEBV ANTIBODY, [id number] 14:16:00* Test Item Value Reference Range Interpretation Comments ALEX LARES VIRAL CAPSID ANTIGEN IGG (BEAKER) (test code = 3415) Positive Negative, Equivocal A Alex Lares Viral Capsid Antigen IgG Result Interpretation: </= 0.8 Al Negative 0.9-1.0 Al Equivocal >/= 1.1 Al PositiveEBV ANTIBODY, [id number] 14:16:00* Test Item Value Reference Range Interpretation Comments ALEX LARES VIRAL CAPSID ANTIGEN IGM (BEAKER) (test code = 3418) Positive Negative, Equivocal A Alex Lares Viral Capsid Antigen IgM Result Interpretation: </= 0.8 Al Negative 0.9-1.0 Al Equivocal >/= 1.1 Al PositiveHEMOGLOBIN AND HEMATOCRIT 2018-06-19 13:40:00* Test Item Value Reference Range Interpretation Comments HEMOGLOBIN (BEAKER) (test code = 410) 8.5 GM/DL 13.7-17.5 L HEMATOCRIT (BEAKER) (test code = 411) 26.4 % 40.1-51.0 L POCT-GLUCOSE [id number] 12:45:00* Test Item Value Reference Range Interpretation Comments POC-GLUCOSE METER (BEAKER) (test code = 1538) 204 mg/dL 70-[address] [facility] [address] [facility] [address] CBC W/PLT COUNT & AUTO [id number] 11:32:00* Test Item Value Reference Range Interpretation [...] manually reviewed rbc morp hology on the [id number] 11:25:00* Test Item Value Reference Range Interpretation Comments RPR SCREEN (BEAKER) (test code = 420) Nonreactive Nonreactive [id number] 11:23:00* Test Item Value Reference Range Interpretation Comments AMMONIA (BEAKER) (test code = 348) 62 mol/L 18-72 HEMOGLOBIN AND [id number] 10:37:00* Test Item Value Reference Range Interpretation Comments HEMOGLOBIN (BEAKER) (test code = 410) 7.9 GM/DL 13.7-17.5 L HEMATOCRIT (BEAKER) (test code = 411) 24.4 % 40.1-51.0 L BASIC METABOLIC [id number] 09:29:00* Test Item Value Reference Range Interpretation [...] APPLICABLE FOR DIALYSIS PATIENTS. Specimen markedly ictericPOCT-GLUCOSE [id number] 08:36:00* Test Item Value Reference Range Interpretation Comments POC-GLUCOSE METER (BEAKER) (test code = 1538) 211 mg/dL 70-[address] [facility] [address] [place] [address] RAD, CHEST, 1 VIEW, NON [id number] 07:24:00Reason for exam:->Pulmonary edema evaluationShould this be [...] MDReport Verified Date/Time: 06/19/2018 07:24:06 Reading Location: [facility] C013V Neuro Reading Room Electronically signed by: OMERO MOURA M.D. on 07:24 AM [id number] 05:40:00* Test Item Value Reference Range Interpretation Comments PARTIAL THROMBOPLASTIN TIME (BEAKER) (test code = 760) 44.4 seconds 22.5-36.0 H PROTHROMBIN [id number] 05:39:00* Test Item Value Reference Range Interpretation [...] pat ients with mechanical heart valves.HEPATIC FUNCTION [id number] 05:17:00* Test Item Value Reference Range Interpretation [...] U/L 6-55 H Specimen markedly ictericBASIC METABOLIC [id number] 05:17:00* Test Item Value Reference Range Interpretation [...] NOT APPLICABLE FOR DIALYSIS PATIENTS. Specimen markedly sygwfgjVWUAOQYXQT6705-14-04 05:13:00* Test Item Value Reference Range Interpretation Comments PHOSPHORUS (BEAKER) (test code = 604) 5.3 mg/dL 2.3-4.7 H [id number] 05:13:00* Test Item Value Reference Range Interpretation Comments MAGNESIUM (BEAKER) (test code = 627) 2.2 mg/dL 1.6-2.6 LACTIC ACID, [id number] 04:57:00* Test Item Value Reference Range Interpretation Comments LACTATE BLOOD ARTERIAL (2) (BEAKER) (test code = 2874) 0.7 mmol/L 0.5-2.2 Specimen markedly ictericCALCIUM, [id number] 04:46:00* Test Item Value Reference Range Interpretation Comments CALCIUM IONIZED (BEAKER) (test code = 698) 1.07 mmol/L 1.12-1.27 L PH, BLOOD (BEAKER) (test code = 1810) 7.47 BLOOD GAS, [id number] 04:46:00* Test Item Value Reference Range Interpretation [...] code = 1819) 40.0 % OCCULT BLOOD, [id number] 01:25:00* Test Item Value Reference Range Interpretation Comments FECAL OCCULT BLOOD (BEAKER) (test code = 618) Positive Negative A BASIC METABOLIC [id number] 23:56:00* Test Item Value Reference Range Interpretation [...] APPLICABLE FOR DIALYSIS PATIENTS. Specimen markedly ictericCALCIUM, [id number] 23:54:00* Test Item Value Reference Range Interpretation Comments CALCIUM IONIZED (BEAKER) (test code = 698) 1.11 mmol/L 1.12-1.27 L PH, BLOOD (BEAKER) (test code = 1810) 7.46 Check serum Ionized Calcium level after 4 hours after IV Calcium replacement. HEMOGLOBIN AND [id number] 23:37:00* Test Item Value Reference Range Interpretation Comments HEMOGLOBIN (BEAKER) (test code = 410) 7.0 GM/DL 13.7-17.5 L HEMATOCRIT (BEAKER) (test code = 411) 22.2 % 40.1-51.0 L POCT-GLUCOSE [id number] 23:36:00* Test Item Value Reference Range Interpretation Comments POC-GLUCOSE METER (BEAKER) (test code = 1538) 161 mg/dL 70-110 H TESTED AT [address] [address] HEMOGLOBIN AND [id number] 20:42:00* Test Item Value Reference Range Interpretation Comments HEMOGLOBIN (BEAKER) (test code = 410) 7.2 GM/DL 13.7-17.5 L HEMATOCRIT (BEAKER) (test code = 411) 22.3 % 40.1-51.0 L CBC W/PLT COUNT & AUTO [id number] 18:06:00* Test Item Value Reference Range Interpretation [...] Received comment: User comments: Slide comments: POCT-GLUCOSE [id number] 17:33:00* Test Item Value Reference Range Interpretation Comments POC-GLUCOSE METER (BEAKER) (test code = 1538) 196 mg/dL 70-[address] [facility] [address] [facility] [address] BASIC METABOLIC [id number] 17:24:00* Test Item Value Reference Range Interpretation [...] NOT APPLICABLE FOR DIALYSIS PATIENTS. Specimen markedly [id number] 14:47:00* Test Item Value Reference Range Interpretation Comments T4 TOTAL (BEAKER) (test code = 895) 8.1 ug/dL 4.9-11.7 CRYPTOCOCCAL [id number] 14:31:00* Test Item Value Reference Range Interpretation Comments CRYPTOCOCCAL ANTIGEN, SERUM (BEAKER) (test code = 1828) Nega tive Negative, Interference [id number] 14:20:00* Test Item Value Reference Range Interpretation Comments FERRITIN (BEAKER) (test code = 361) 2332 ng/mL 5-275 H LIPID [id number] 14:07:00* Test Item Value Reference Range Interpretation [...] High 160-189 Very High >=190 Specimen markedly [id number] 13:01:00* Test Item Value Reference Range Interpretation Comments PROSTATE SPECIFIC ANTIGEN (BEAKER) (test code = 844) 0.5 ng/mL 0 .0-4.0 HIV-1 ANTIGEN WITH HIV-1/2 [id number] 13:01:00* Test Item Value Reference Range Interpretation Comments HIV-1 ANTIGEN WITH HIV 1\\T\\2 ANTIBODY (2) (BEAKER) (te st code = 2586) Nonreactive Nonreactive CARCINOEMBRYONIC ANTIGEN (CEA)2018-06-18 13:01:00* Test Item Value Reference Range Interpretation Comments CARCINOEMBRYONIC ANTIGEN (BEAKER) (test code = 685) 16.6 ng/mL 0. 0-5.0 H VITAMIN D, [id number]-[id number] 13:01:00* Test Item Value Reference Range Interpretation Comments VITAMIN D 25-OH (BEAKER) (test code = 2764) 14.7 ng/mL 6.6-49.9 Effective 12/06/2016: Reference Range ChangeNew: 6.6-49.9 ng/mL Previous: 13.0 -47.8 ng/mLRecommended Vitamin D Target Range: 30.0-40.0 ng/mLPOCT-GLUCOSE METER 2018-06-18 12:53:00* Test Item Value Reference Range Interpretation Comments POC-GLUCOSE METER (BEAKER) (test code = 1538) 239 mg/dL 70-[address] [facility] [address] [place] [address] [id number] 12:43:00* Test Item Value Reference Range Interpretation Comments TRANSFERRIN (BEAKER) (test code = 541) 112 mg/dL 174-382 L Specimen markedly ictericURIC [id number] 12:42:00* Test Item Value Reference Range Interpretation Comments URIC ACID (BEAKER) (test code = 773) 15.6 mg/dL 2.6-7.2 H Specimen markedly ictericGAMMA GLUTAMYL TRANSFERASE (GGT)2018-06-18 12:42:00* Test Item Value Reference Range Interpretation Comments GAMMA GLUTAMYL TRANSFERASE (BEAKER) (test code = 364) 125 U/L 9-64 H Specimen markedly [id number] 12:40:00* Test Item Value Reference Range Interpretation Comments ETHANOL (BEAKER) (test code = 400) < mg/dL <=10 [id number] 12:35:00* Test Item Value Reference Range Interpretation Comments FIBRINOGEN LEVEL (BEAKER) (test code = 658) 811 mg/dl 225-434 H BLOOD [id number] 11:56:00* Test Item Value Reference Range Interpretation Comments CULTURE (BEAKER) (test code = 1095) No growth in 5 days BLOOD [id number] 11:56:00* Test Item Value Reference Range Interpretation Comments CULTURE (BEAKER) (test code = 1095) No growth in 5 days CALCIUM, [id number] 11:40:00* Test Item Value Reference Range Interpretation Comments CALCIUM IONIZED (BEAKER) (test code = 698) 1.12 mmol/L 1.12-1.27 PH, BLOOD (BEAKER) (test code = 1810) 7.49 CBC W/PLT COUNT & AUTO [id number] 08:56:00* Test Item Value Reference Range Interpretation [...] WBC: SEGMENTED WITH TOXIG GRANU LATION PRESENT [id number] 08:54:00* Test Item Value Reference Range Interpretation Comments MAGNESIUM (BEAKER) (test code = 627) 2.3 mg/dL 1.6-2.6 BASIC METABOLIC [id number] 08:54:00* Test Item Value Reference Range Interpretation [...] APPLICABLE FOR DIALYSIS PATIENTS. Specimen markedly ictericPOCT-GLUCOSE [id number] 08:29:00* Test Item Value Reference Range Interpretation Comments POC-GLUCOSE METER (BEAKER) (test code = 1538) 223 mg/dL 70-[address] [facility] [address] [facility] [address] RAD, CHEST, 1 VIEW, NON [id number] 04:54:00Reason for exam:->Pulmonary edema evaluationShould this be [...] no pleural effusion or pneumothorax. Signed: Nicolás Ceballosort Verified D ate/Time: 06/18/2018 04:54:27 Reading Location: [facility] C013Y CT Body Reading Ro om D GAS, [id number] 04:39:00* Test Item Value Reference Range Interpretation [...] code = 1819) 40.0 % HEPATIC FUNCTION [id number] 04:35:00* Test Item Value Reference Range Interpretation [...] 347) 138 U/L 6-55 H Specimen markedly sxoyklpGQLJMXNZI1645-12-76 04:34:00* Test Item Value Reference Range Interpretation Comments MAGNESIUM (BEAKER) (test code = 627) 2.5 mg/dL 1.6-2.6 BASIC METABOLIC [id number] 04:34:00* Test Item Value Reference Range Interpretation [...] code = 380) 50 U/L 29-20 0 [id number] 04:23:00* Test Item Value Reference Range Interpretation Comments PARTIAL THROMBOPLASTIN TIME (BEAKER) (test code = 760) 49.4 seconds 22.5-36.0 H PROTHROMBIN TIME/[id number] 04:22:00* Test Item Value Reference Range Interpretation [...] pat ients with mechanical heart valves.LACTIC ACID, [id number] 04:17:00* Test Item Value Reference Range Interpretation Comments LACTATE BLOOD ARTERIAL (2) (BEAKER) (test code = 2874) 1.3 mmol/L 0.5-2.2 Specimen markedly [id number] 00:59:00* Test Item Value Reference Range Interpretation Comments MAGNESIUM (BEAKER) (test code = 627) 2.1 mg/dL 1.6-2.6 BASIC METABOLIC [id number] 00:59:00* Test Item Value Reference Range Interpretation [...] APPLICABLE FOR DIALYSIS PATIENTS. Specimen markedly ictericPOCT-GLUCOSE [id number] 00:20:00* Test Item Value Reference Range Interpretation Comments POC-GLUCOSE METER (BEAKER) (test code = 1538) 155 mg/dL 70-110 H TESTED AT [address] [address] POCT-GLUCOSE [id number] 18:09:00* Test Item Value Reference Range Interpretation Comments POC-GLUCOSE METER (BEAKER) (test code = 1538) 187 mg/dL 70-110 H TESTED AT [address] [address] BASIC METABOLIC [id number] 16:09:00* Test Item Value Reference Range Interpretation [...] APPLICABLE FOR DIALYSIS PATIENTS. Specimen markedly ictericPOCT-GLUCOSE [id number] 12:03:00* Test Item Value Reference Range Interpretation Comments POC-GLUCOSE METER (BEAKER) (test code = 1538) 212 mg/dL 70-110 H TESTED AT [place] [id number] [facility] [address] [id number] 11:52:00* Test Item Value Reference Range Interpretation Comments MAGNESIUM (BEAKER) (test code = 627) 2.0 mg/dL 1.6-2.6 BASIC METABOLIC [id number] 11:52:00* Test Item Value Reference Range Interpretation [...] Specimen markedly ictericPERIPHERAL BLOOD SMEAR - PATHOLOGIST [id number] 08:37:00* Test Item Value Reference Range Interpretation Comments PERIPHERAL SMR REVIEW (BEAKER) (test code = 2640) Left shifted granulocytes with toxic changes. No circulating blasts. No significantly increased schistocytes. [id number] (BEAKER) (test code = 2849) Raul Arenas M.D.(electronic signature) RAD, CHEST, 1 VIEW, NON [id number] 08:15:00Reason for exam:->Pulmonary edema evaluationShould this be performed at the bedside?->YesFINAL REPORT Chest, one view. HISTORY: Pulmonary edema evaluation COMPARISON: Radiograph from 06/16/2018 IMPRESSION: Unchanged positioning of support lines and tubes. The interstitial edema is unchanged. No pleural effusion or pneumothorax. The cardiac silhouette is unchanged. No acute bony abnormality. Signed: Kyle Rae Verified Date/Time: 06/17/2018 08:15:08 Reading Location: [facility] Radiology Reading Room LT BLOOD, [id number] 07:04:00* Test Item Value Reference Range Interpretation Comments FECAL OCCULT BLOOD (BEAKER) (test code = 618) Negative Negative POCT-GLUCOSE [id number] 06:28:00* Test Item Value Reference Range Interpretation Comments POC-GLUCOSE METER (BEAKER) (test code = 1538) 209 mg/dL 70-110 H TESTED AT [facility] [address] [place] [address] [id number] 05:05:00* Test Item Value Reference Range Interpretation Comments PARTIAL THROMBOPLASTIN TIME (BEAKER) (test code = 760) 51.6 seconds 22.5-36.0 H PROTHROMBIN [id number] 05:04:00* Test Item Value Reference Range Interpretation [...] pat ients with mechanical heart valves.HEPATIC FUNCTION [id number] 04:18:00* Test Item Value Reference Range Interpretation [...] 347) 146 U/L 6-55 H Specimen markedly [id number] 03:59:00* Test Item Value Reference Range Interpretation Comments MAGNESIUM (BEAKER) (test code = 627) 2.4 mg/dL 1.6-2.6 BASIC METABOLIC [id number] 03:59:00* Test Item Value Reference Range Interpretation [...] NOT APPLICABLE FOR DIALYSIS PATIENTS. Specimen markedly [id number] 03:59:00* Test Item Value Reference Range Interpretation Comments AMYLASE (BEAKER) (test code = 349) 49 U/L 25-125 Specimen markedly [id number] 03:59:00* Test Item Value Reference Range Interpretation Comments LIPASE (BEAKER) (test code = 749) 186 U/L 8-78 H Specimen markedly ictericLACTIC ACID, [id number] 03:41:00* Test Item Value Reference Range Interpretation Comments LACTATE BLOOD ARTERIAL (2) (BEAKER) (test code = 2874) 1.5 mmol/L 0.5-2.2 Specimen markedly ictericCBC W/PLT COUNT & AUTO [id number] 03:38:00 * Test Item Value Reference Range [...] 2801) 3 % 0-1 H BLOOD GAS, [id number] 03:30:00* Test Item Value Reference Range Interpretation [...] (test code = 1819) 40.0 % CALCIUM, [id number] 03:28:00* Test Item Value Reference Range Interpretation Comments CALCIUM IONIZED (BEAKER) (test code = 698) 1.14 mmol/L 1.12-1.27 PH, BLOOD (BEAKER) (test code = 1810) 7.53 Check serum Ionized Calcium level after 4 hours after IV Calcium replacement. POCT-GLUCOSE [id number] 00:11:00* Test Item Value Reference Range Interpretation Comments POC-GLUCOSE METER (BEAKER) (test code = 1538) 233 mg/dL 70-[address] [facility] [address] [facility] [address] HEMOGLOBIN AND [id number] 23:41:00* Test Item Value Reference Range Interpretation Comments HEMOGLOBIN (BEAKER) (test code = 410) 8.3 GM/DL 13.7-17.5 L HEMATOCRIT (BEAKER) (test code = 411) 26.1 % 40.1-51.0 L [id number] 20:50:00* Test Item Value Reference Range Interpretation Comments MAGNESIUM (BEAKER) (test code = 627) 2.5 mg/dL 1.6-2.6 BASIC METABOLIC [id number] 20:50:00* Test Item Value Reference Range Interpretation [...] APPLICABLE FOR DIALYSIS PATIENTS. Specimen markedly ictericCALCIUM, [id number] 20:26:00* Test Item Value Reference Range Interpretation Comments CALCIUM IONIZED (BEAKER) (test code = 698) 1.11 mmol/L 1.12-1.27 L PH, BLOOD (BEAKER) (test code = 1810) 7.53 Check serum Ionized Calcium level after 4 hours after IV Calcium replacement. POCT-GLUCOSE [id number] 20:07:00* Test Item Value Reference Range Interpretation Comments POC-GLUCOSE METER (BEAKER) (test code = 1538) 203 mg/dL 70-[address] [facility] [address] [facility] [address] POCT-GLUCOSE [id number] 16:57:00* Test Item Value Reference Range Interpretation Comments POC-GLUCOSE METER (BEAKER) (test code = 1538) 130 mg/dL 70-[address] [facility] [address] [facility] [address] VITAMIN B12 AND [id number] 16:12:00* Test Item Value Reference Range Interpretation Comments VITAMIN B12 (BEAKER) (test code = 774) 1499 pg/mL 213-816 H FOLATE (BEAKER) (test code = 362) 14.9 ng/mL >=7.0 POCT-GLUCOSE [id number] 15:35:00* Test Item Value Reference Range Interpretation Comments POC-GLUCOSE METER (BEAKER) (test code = 1538) 101 mg/dL 70-[address] [facility] [address] [facility] [address] (MANUAL DIFFERENTIAL)2018-06-16 14:42:00* Test Item Value Reference [...] RBCS(BEAKER) (test code = 478) 1+ few [id number] 14:16:00* Test Item Value Reference Range Interpretation Comments HAPTOGLOBIN (BEAKER) (test code = 366) 250 mg/dL 14-258 [id number] 14:09:00* Test Item Value Reference Range Interpretation Comments MAGNESIUM (BEAKER) (test code = 627) 2.1 mg/dL 1.6-2.6 BASIC METABOLIC [id number] 14:09:00* Test Item Value Reference Range Interpretation [...] NOT APPLICABLE FOR DIALYSIS PATIENTS. Specimen markedly [id number] 14:09:00* Test Item Value Reference Range Interpretation Comments AMYLASE (BEAKER) (test code = 349) 55 U/L 25-125 Specimen markedly ictericLACTATE DEHYDROGENASE (LDH)2018-06-16 14:09:00* Test Item Value Reference Range Interpretation Comments LACTATE DEHYDROGENASE (BEAKER) (test code = 635) 388 U/L 125-2 20 H [id number] 14:09:00* Test Item Value Reference Range Interpretation [...] = 2590) 30 % 20-5 5 IRON, [id number] 14:04:00* Test Item Value Reference Range Interpretation Comments IRON (BEAKER) (test code = 547) 37.0 ug/dL 40.0-160.0 L LACTIC ACID, [id number] 14:02:00* Test Item Value Reference Range Interpretation [...] 0 /100 WBC 0 -0 BLOOD GAS, [id number] 13:45:00* Test Item Value Reference Range Interpretation [...] (test code = 1819) 100.0 % POCT-GLUCOSE [id number] 13:23:00* Test Item Value Reference Range Interpretation Comments POC-GLUCOSE METER (BEAKER) (test code = 1538) 121 mg/dL 70-[address] [facility] [address] [facility] [address] POCT-GLUCOSE [id number] 11:05:00* Test Item Value Reference Range Interpretation Comments POC-GLUCOSE METER (BEAKER) (test code = 1538) 145 mg/dL 70-110 H TESTED AT [place] [id number] [facility] [address] POCT-GLUCOSE [id number] 08:56:00* Test Item Value Reference Range Interpretation Comments POC-GLUCOSE METER (BEAKER) (test code = 1538) 147 mg/dL 70-110 H TESTED AT [place] [address] [facility] [address] CBC W/PLT COUNT & AUTO [id number] 08:10:00* Test Item Value Reference Range Interpretation [...] 1+ few RAD, CHEST, 1 VIEW, NON [id number] 07:59:00Reason for exam:->Pulmonary edema evaluationShould this be performed at the bedside?->YesFINAL REPORT INDICATION: Pulmonary edema evaluation COMPARISON:June 15. TECHNIQUE: Chest radiograph, single view, portable technique. FINDINGS / IMPRESSION: Prominent heart shadow and diffuse interstitial pulmonary edema are again demonstrated. Support lines and tubes unchanged and appear satisfactory. No pneumothorax. Signed: Natalio Santillan Verified Date/Time: 06/16/2018 07:59:49 Reading Location: [address] Consult Reading Room [facility] signed by: NATALIO SANTILLAN M.D. on 06/16/2018 07:59 AM POCT- GLUCOSE [id number] 07:05:00* Test Item Value Reference Range Interpretation Comments POC-GLUCOSE METER (BEAKER) (test code = 1538) 114 mg/dL 70-110 H TESTED AT [address] [address] POCT-GLUCOSE [id number] 05:09:00* Test Item Value Reference Range Interpretation Comments POC-GLUCOSE METER (BEAKER) (test code = 1538) 120 mg/dL 70-110 H TESTED AT [address] [address] HEPATIC FUNCTION [id number] 04:53:00* Test Item Value Reference Range Interpretation [...] 347) 138 U/L 6-55 H Specimen markedly [id number] 04:30:00* Test Item Value Reference Range Interpretation Comments MAGNESIUM (BEAKER) (test code = 627) 2.3 mg/dL 1.6-2.6 BASIC METABOLIC [id number] 04:30:00* Test Item Value Reference Range Interpretation [...] NOT APPLICABLE FOR DIALYSIS PATIENTS. Specimen markedly [id number] 04:14:00* Test Item Value Reference Range Interpretation Comments PARTIAL THROMBOPLASTIN TIME (BEAKER) (test code = 760) 48.2 seconds 22.5-36.0 H PROTHROMBIN TIME/[id number] 04:13:00* Test Item Value Reference Range Interpretation [...] pat ients with mechanical heart valves.LACTIC ACID, [id number] 04:08:00* Test Item Value Reference Range Interpretation Comments LACTATE BLOOD ARTERIAL (2) (BEAKER) (test code = 2874) 0.9 mmol/L 0.5-2.2 Specimen markedly ictericBLOOD GAS, [id number] 03:51:00* Test Item Value Reference Range Interpretation [...] (test code = 1819) 40.0 % CALCIUM, [id number] 03:49:00* Test Item Value Reference Range Interpretation Comments CALCIUM IONIZED (BEAKER) (test code = 698) 1.13 mmol/L 1.12-1.27 PH, BLOOD (BEAKER) (test code = 1810) 7.52 Check serum Ionized Calcium level after 4 hours after IV Calcium replacement. POCT-GLUCOSE [id number] 02:50:00* Test Item Value Reference Range Interpretation Comments POC-GLUCOSE METER (BEAKER) (test code = 1538) 132 mg/dL 70-110 H TESTED AT [place] [id number] [facility] [address] POCT-GLUCOSE [id number] 01:18:00* Test Item Value Reference Range Interpretation Comments POC-GLUCOSE METER (BEAKER) (test code = 1538) 137 mg/dL 70-110 H TESTED AT [place] [address] [facility] [address] POCT-GLUCOSE [id number] 00:07:00* Test Item Value Reference Range Interpretation Comments POC-GLUCOSE METER (BEAKER) (test code = 1538) 131 mg/dL 70-110 H TESTED AT [place] [address] [facility] [address] BLOOD GAS, [id number] 22:54:00* Test Item Value Reference Range Interpretation [...] (test code = 1819) 40.0 % POCT-GLUCOSE [id number] 22:51:00* Test Item Value Reference Range Interpretation Comments POC-GLUCOSE METER (BEAKER) (test code = 1538) 167 mg/dL 70-110 H TESTED AT [address] [address] [id number] 22:08:00* Test Item Value Reference Range Interpretation Comments POTASSIUM (BEAKER) (test code = 379) 3.9 meq/L 3.5-5.1 PRN - repeat potassium levels every 1 hour until glucose level is less than 450 mg/[id number] 22:08:00* Test Item Value Reference Range Interpretation Comments MAGNESIUM (BEAKER) (test code = 627) 2.3 mg/dL 1.6-2.6 PRN - repeat potassium levels every 1 hour until glucose level is less than 450 mg/dLPOCT-GLUCOSE [id number] 22:00:00* Test Item Value Reference Range Interpretation Comments POC-GLUCOSE METER (BEAKER) (test code = 1538) 126 mg/dL 70-110 H TESTED AT [address] [address] HEMOGLOBIN AND [id number] 21:56:00* Test Item Value Reference Range Interpretation Comments HEMOGLOBIN (BEAKER) (test code = 410) 8.4 GM/DL 13.7-17.5 L HEMATOCRIT (BEAKER) (test code = 411) 26.0 % 40.1-51.0 L CALCIUM, [id number] 21:53:00* Test Item Value Reference Range Interpretation Comments CALCIUM IONIZED (BEAKER) (test code = 698) 1.10 mmol/L 1.12-1.27 L PH, BLOOD (BEAKER) (test code = 1810) 7.50 Check serum Ionized Calcium level after 4 hours after IV Calcium replacement. POCT-GLUCOSE [id number] 20:41:00* Test Item Value Reference Range Interpretation Comments POC-GLUCOSE METER (BEAKER) (test code = 1538) 90 mg/dL 70-110 TESTED AT [address] [address] BLOOD GAS, [id number] 18:42:00* Test Item Value Reference Range Interpretation [...] (test code = 1819) 50.0 % POCT-GLUCOSE [id number] 17:49:00* Test Item Value Reference Range Interpretation Comments POC-GLUCOSE METER (BEAKER) (test code = 1538) 125 mg/dL 70-110 H TESTED AT [address] [address] BASIC METABOLIC [id number] 17:46:00* Test Item Value Reference Range Interpretation [...] FOR DIALYSIS PATIENTS. Specimen markedly ictericBLOOD GAS, [id number] 17:35:00* Test Item Value Reference Range Interpretation [...] (test code = 1819) 50.0 % POCT-GLUCOSE [id number] 15:27:00* Test Item Value Reference Range Interpretation Comments POC-GLUCOSE METER (BEAKER) (test code = 1538) 138 mg/dL 70-[address] [facility] [address] [facility] [address] [id number] 13:59:00* Test Item Value Reference Range Interpretation Comments MAGNESIUM (BEAKER) (test code = 627) 2.1 mg/dL 1.6-2.6 BASIC METABOLIC [id number] 13:59:00* Test Item Value Reference Range Interpretation [...] FOR DIALYSIS PATIENTS. Specimen markedly ictericBLOOD GAS, [id number] 13:40:00* Test Item Value Reference Range Interpretation [...] code = 1819) 50.0 % HEMOGLOBIN AND [id number] 13:40:00* Test Item Value Reference Range Interpretation Comments HEMOGLOBIN (BEAKER) (test code = 410) 7.4 GM/DL 13.7-17.5 L HEMATOCRIT (BEAKER) (test code = 411) 23.5 % 40.1-51.0 L Please collect after PRBCs doneRAD, CHEST, 1 VIEW, NON [id number] 11:32:00 Reason for exam:->Pulmonary edema evaluationShould this [...] MDReport Verified Date/Time: 06/15/2018 11:32:52 Reading Location: [address] Consult Reading Room -GLUCOSE [id number] 10:50:00* Test Item Value Reference Range Interpretation Comments POC-GLUCOSE METER (BEAKER) (test code = 1538) 107 mg/dL 70-[address] [facility] [address] [facility] [address] CBC W/PLT COUNT & AUTO [id number] 09:04:00* Test Item Value Reference Range Interpretation [...] quate Received comment: User comments: Slide comments: [id number] 08:43:00* Test Item Value Reference Range Interpretation Comments POTASSIUM (BEAKER) (test code = 379) 3.9 meq/L 3.5-5.1 PRN - repeat glucose levels every 1 hour or as specified by insulin titration or ders until glucose level is less than 450 mg/dLCheck Serum Potassium level 2 roxy rs after oral potassium replacement completed or 30 min after intravenous potass ium replacement.[id number] 08:43:00* Test Item Value Reference Range Interpretation Comments GLUCOSE RANDOM (BEAKER) (test code = 652) 123 mg/dL 70-105 H PRN - repeat glucose levels every 1 hour or as specified by insulin titration or ders until glucose level is less than 450 mg/dLCheck Serum Potassium level 2 roxy rs after oral potassium replacement completed or 30 min after intravenous potass ium replacement.HEMOGLOBIN AND [id number] 07:05:00* Test Item Value Reference Range Interpretation Comments HEMOGLOBIN (BEAKER) (test code = 410) 6.6 GM/DL 13.7-17.5 L HEMATOCRIT (BEAKER) (test code = 411) 21.3 % 40.1-51.0 L POCT-GLUCOSE [id number] 06:52:00* Test Item Value Reference Range Interpretation Comments POC-GLUCOSE METER (BEAKER) (test code = 1538) 117 mg/dL 70-[address] [facility] [address] [facility] [address] CALCIUM, [id number] 04:47:00* Test Item Value Reference Range Interpretation Comments CALCIUM IONIZED (BEAKER) (test code = 698) 1.10 mmol/L 1.12-1.27 L PH, BLOOD (BEAKER) (test code = 1810) 7.48 Check serum Ionized Calcium level after 4 hours after IV Calcium replacement. BLOOD GAS, [id number] 04:47:00* Test Item Value Reference Range Interpretation [...] code = 1819) 50.0 % BASIC METABOLIC [id number] 04:27:00* Test Item Value Reference Range Interpretation [...] NOT APPLICABLE FOR DIALYSIS PATIENTS. Specimen markedly [id number] 04:15:00* Test Item Value Reference Range Interpretation Comments MAGNESIUM (BEAKER) (test code = 627) 2.4 mg/dL 1.6-2.6 HEPATIC FUNCTION [id number] 04:15:00* Test Item Value Reference Range Interpretation [...] 353) 334 U/L 5-34 H ALT (SGPT) (GAURAVAKER) (test code = 347) 134 U/L 6-55 H Specimen markedly ictericPOCT-GLUCOSE [id number] 04:02:00* Test Item Value Reference Range Interpretation Comments POC-GLUCOSE METER (GAURAVAKER) (test code = 1538) 107 mg/dL 70-110 TESTED AT [address] [address] [id number] 03:59:00* Test Item Value Reference Range Interpretation Comments PARTIAL THROMBOPLASTIN TIME ([facility]) (test code = 760) 54.6 seconds 22.5-36.0 H PROTHROMBIN [id number] 03:58:00* Test Item Value Reference Range Interpretation Comments PROTIME ([facility]) (test code = 759) 17.8 seconds 11.7-14.7 H INR ([facility]) (test code = 370) 1.5 <=5.9 RECOMMENDED COUMADIN/WARFARIN INR THERAPY RANGESSTANDARD DOSE: 2.0 - 3.0 Inclu herb: PROPHYLAXIS for venous thrombosis, systemic embolization; TREATMENT for giulia ous thrombosis and/or pulmonary embolus.HIGH RISK: Target INR is 2.5-3.5 for pat ients with mechanical heart valves.LACTIC ACID, [id number] 03:56:00* Test Item Value Reference Range Interpretation Comments LACTATE BLOOD ARTERIAL (2) ([facility]) (test code = 2874) 1.1 mmol/L 0.5-2.2 Specimen markedly ictericPOCT-GLUCOSE [id number] 03:10:00* Test Item Value Reference Range Interpretation Comments POC-GLUCOSE METER (BEAKER) (test code = 1538) 118 mg/dL 70-110 H TESTED AT [address] [address] POCT-GLUCOSE [id number] 02:11:00* Test Item Value Reference Range Interpretation Comments POC-GLUCOSE METER (GAURAVAKER) (test code = 1538) 112 mg/dL 70-110 H TESTED AT [address] [address] POCT-GLUCOSE [id number] 01:28:00* Test Item Value Reference Range Interpretation Comments POC-GLUCOSE METER ([facility]) (test code = 1538) 126 mg/dL 70-110 H TESTED AT [address] [address] BASIC METABOLIC [id number] 00:27:00* Test Item Value Reference Range Interpretation [...] APPLICABLE FOR DIALYSIS PATIENTS. Specimen markedly ictericPOCT-GLUCOSE [id number] 00:22:00* Test Item Value Reference Range Interpretation Comments POC-GLUCOSE METER (BEAKER) (test code = 1538) 155 mg/dL 70-110 H TESTED AT [address] [address] POCT-GLUCOSE [id number] 23:18:00* Test Item Value Reference Range Interpretation Comments POC-GLUCOSE METER (BEAKER) (test code = 1538) 168 mg/dL 70-110 H TESTED AT [address] [address] POCT-GLUCOSE [id number] 22:13:00* Test Item Value Reference Range Interpretation Comments POC-GLUCOSE METER (BEAKER) (test code = 1538) 171 mg/dL 70-110 H TESTED AT [address] [address] [id number] 21:19:00* Test Item Value Reference Range Interpretation Comments MAGNESIUM (BEAKER) (test code = 627) 2.5 mg/dL 1.6-2.6 POCT-GLUCOSE [id number] 21:14:00* Test Item Value Reference Range Interpretation Comments POC-GLUCOSE METER (BEAKER) (test code = 1538) 166 mg/dL 70-110 H TESTED AT [address] [address] CALCIUM, [id number] 21:03:00* Test Item Value Reference Range Interpretation Comments CALCIUM IONIZED (BEAKER) (test code = 698) 1.07 mmol/L 1.12-1.27 L PH, BLOOD (BEAKER) (test code = 1810) 7.52 Check serum Ionized Calcium level after 4 hours after IV Calcium replacement. POCT-GLUCOSE [id number] 20:12:00* Test Item Value Reference Range Interpretation Comments POC-GLUCOSE METER (BEAKER) (test code = 1538) 172 mg/dL 70-110 H TESTED AT [address] [address] POCT-GLUCOSE [id number] 18:57:00* Test Item Value Reference Range Interpretation Comments POC-GLUCOSE METER (BEAKER) (test code = 1538) 158 mg/dL 70-110 H TESTED AT [address] [address] POCT-GLUCOSE [id number] 18:57:00* Test Item Value Reference Range Interpretation Comments POC-GLUCOSE METER (BEAKER) (test code = 1538) 172 mg/dL 70-110 H TESTED AT [address] [address] POCT-GLUCOSE [id number] 18:57:00* Test Item Value Reference Range Interpretation Comments POC-GLUCOSE METER (BEAKER) (test code = 1538) 139 mg/dL 70-110 H TESTED AT [address] [address] POCT-GLUCOSE [id number] 18:57:00* Test Item Value Reference Range Interpretation Comments POC-GLUCOSE METER (BEAKER) (test code = 1538) 98 mg/dL 70-110 TESTED AT [address] [address] BASIC METABOLIC [id number] 18:53:00* Test Item Value Reference Range Interpretation [...] FOR DIALYSIS PATIENTS. Specimen markedly ictericEBV VIRAL [id number] 17:58:00* Test Item Value Reference Range Interpretation Comments EBV VIRAL LOAD - NEGATIVE (BEAKER) (test code = 2559) Negative or below the linear range of the assay (<500 copies/mL) This assay was performed by real-time PCR for the detection of the Alex-Lares virus (EBV) gene EBNA-1. The test is composed of (1) DNA extraction from patien t specimen, and (2) real-time PCR amplification and detection with NWOD-5-kunvyi ic primers and probes. A well-conserved region [...] its performance characteristic s determined by the [facility] Pathology Department, Section of varinder Pathology. It has not been cleared or approved by the U.S. Food and Zach g Administration (FDA), since FDA approval is not required for clinical use of t he test. Validation was done as required by The Clinical Laboratory Improvement Amendments of 1988.POCT-GLUCOSE [id number] 14:21:00* Test Item Value Reference Range Interpretation Comments POC-GLUCOSE METER (BENEETU) (test code = 1538) 102 mg/dL 70-[address] [facility] [address] [facility] [address] POCT-GLUCOSE [id number] 12:29:00* Test Item Value Reference Range Interpretation Comments POC-GLUCOSE METER (BEAKER) (test code = 1538) 101 mg/dL 70-[address] [facility] [address] [facility] [address] BASIC METABOLIC [id number] 11:58:00* Test Item Value Reference Range Interpretation [...] NOT APPLICABLE FOR DIALYSIS PATIENTS. Specimen markedly [id number] 11:55:00* Test Item Value Reference Range Interpretation Comments MAGNESIUM (BEAKER) (test code = 627) 2.8 mg/dL 1.6-2.6 H POCT-GLUCOSE [id number] 11:53:00* Test Item Value Reference Range Interpretation Comments POC-GLUCOSE METER (BEAKER) (test code = 1538) 134 mg/dL 70-[address] [facility] [address] [facility] [address] POCT-GLUCOSE [id number] 11:53:00* Test Item Value Reference Range Interpretation Comments POC-GLUCOSE METER (BEAKER) (test code = 1538) 134 mg/dL 70-110 H TESTED AT [place] [id number] [facility] [address] POCT-GLUCOSE [id number] 11:53:00* Test Item Value Reference Range Interpretation Comments POC-GLUCOSE METER (BEAKER) (test code = 1538) 161 mg/dL 70-[address] [facility] [address] [facility] [address] BLOOD GAS, [id number] 11:41:00* Test Item Value Reference Range Interpretation [...] 50.0 % CBC W/PLT COUNT & AUTO [id number] 10:02:00* Test Item Value Reference Range Interpretation [...] Received comment: User comments: Slide comments: POCT-GLUCOSE [id number] 09:09:00* Test Item Value Reference Range Interpretation Comments POC-GLUCOSE METER (BEAKER) (test code = 1538) 159 mg/dL 70-[address] [facility] [address] [facility] [address] POCT-GLUCOSE [id number] 08:09:00* Test Item Value Reference Range Interpretation Comments POC-GLUCOSE METER (BEAKER) (test code = 1538) 178 mg/dL 70-[address] [facility] [address] [facility] [address] RAD, CHEST, 1 VIEW, NON [id number] 07:32:00Reason for exam:->respiratory insufficiencyShould this be performed [...] MDReport Verified Date/Time: 06/14/2018 07:32:08 Reading Location: [facility] Radiology Reading Room 2282-06-30 06:43:00* Test Item Value Reference Range Interpretation Comments PARTIAL THROMBOPLASTIN TIME (BEAKER) (test code = 760) 45.8 seconds 22.5-36.0 H PROTHROMBIN [id number] 06:42:00* Test Item Value Reference Range Interpretation [...] pat ients with mechanical heart valves.BASIC METABOLIC [id number] 06:41:00* Test Item Value Reference Range Interpretation [...] APPLICABLE FOR DIALYSIS PATIENTS. Specimen markedly ictericPOCT-GLUCOSE [id number] 06:32:00* Test Item Value Reference Range Interpretation Comments POC-GLUCOSE METER (BEAKER) (test code = 1538) 175 mg/dL 70-[address] [facility] [address] [facility] [address] POCT-GLUCOSE [id number] 05:43:00* Test Item Value Reference Range Interpretation Comments POC-GLUCOSE METER (BEAKER) (test code = 1538) 149 mg/dL 70-[address] [facility] [address] [facility] [address] POCT-GLUCOSE [id number] 05:43:00* Test Item Value Reference Range Interpretation Comments POC-GLUCOSE METER (BEAKER) (test code = 1538) 140 mg/dL 70-[address] [facility] [address] [facility] [address] BASIC METABOLIC [id number] 04:55:00* Test Item Value Reference Range Interpretation [...] FOR DIALYSIS PATIENTS. Specimen markedly ictericBLOOD GAS, [id number] 04:37:00* Test Item Value Reference Range Interpretation [...] code = 1819) 60.0 % BASIC METABOLIC [id number] 04:35:00* Test Item Value Reference Range Interpretation [...] NOT APPLICABLE FOR DIALYSIS PATIENTS. Specimen markedly [id number] 04:25:00* Test Item Value Reference Range Interpretation Comments MAGNESIUM (BEAKER) (test code = 627) 2.4 mg/dL 1.6-2.6 HEPATIC FUNCTION [id number] 04:25:00* Test Item Value Reference Range Interpretation [...] 347) 119 U/L 6-55 H Specimen markedly [id number] 04:25:00* Test Item Value Reference Range Interpretation Comments AMYLASE (BEAKER) (test code = 349) 80 U/L 25-125 Specimen markedly [id number] 04:25:00* Test Item Value Reference Range Interpretation Comments LIPASE (BEAKER) (test code = 749) 222 U/L 8-78 H Specimen markedly ictericLACTIC ACID, [id number] 04:17:00* Test Item Value Reference Range Interpretation Comments LACTATE BLOOD ARTERIAL (2) (BEAKER) (test code = 2874) 0.8 mmol/L 0.5-2.2 Specimen markedly ictericPOCT-GLUCOSE [id number] 02:31:00* Test Item Value Reference Range Interpretation Comments POC-GLUCOSE METER (BEAKER) (test code = 1538) 98 mg/dL 70-110 TESTED AT [place] [id number] [facility] [address] POCT-GLUCOSE [id number] 01:45:00* Test Item Value Reference Range Interpretation Comments POC-GLUCOSE METER (BEAKER) (test code = 1538) 120 mg/dL 70-[address] [facility] [address] [facility] [address] POCT-GLUCOSE [id number] 01:45:00* Test Item Value Reference Range Interpretation Comments POC-GLUCOSE METER (BEAKER) (test code = 1538) 171 mg/dL 70-110 H TESTED AT [address] [address] [address], CHEST, WITHOUT [id number] 00:56:00FINAL REPORT EXAM: CT of the chest, [...] may be due to surrounding ascites alvarado viet acute pancreatitis cannot be excluded. Correlate clinically.Hepatosplenomega ly. Hepatic steatosis.Small abdominal and pelvic ascites. No bowel obstruction, free air or fluid collection. Signed: Nicolás Ceballos MDReport Verified Date/Time: 06/14/2018 00:56:49 Reading Location: [facility] C013Y CT Body Reading Room Amada ctronically signed by: NICOLÁS CEBALLOS MD on 06/14/2018 12:[address], [id number] 00:56:00With PO contrastFINAL REPORT EXAM: CT of [...] may be due to surrounding ascites alvarado viet acute pancreatitis cannot be excluded. Correlate clinically.Hepatosplenomega ly. Hepatic steatosis.Small abdominal and pelvic ascites. No bowel obstruction, free air or fluid collection. Signed: Nicolás Ceballoseport Verified Date/Time: 06/14/2018 00:56:49 Reading Location: [facility] B1 C013Y [address] Body Reading Room Amada ctronically signed by: NICOLÁS CEBALLOS MD on 06/14/2018 12:56 AM POCT- GLUCOSE [id number] 23:12:00* Test Item Value Reference Range Interpretation Comments POC-GLUCOSE METER (BEAKER) (test code = 1538) 200 mg/dL 70-110 H TESTED AT [address] [address] POCT-GLUCOSE [id number] 23:12:00* Test Item Value Reference Range Interpretation Comments POC-GLUCOSE METER (BEAKER) (test code = 1538) 132 mg/dL 70-110 H TESTED AT [address] [address] [id number] 21:11:00* Test Item Value Reference Range Interpretation Comments MAGNESIUM (BEAKER) (test code = 627) 2.5 mg/dL 1.6-2.6 POCT-GLUCOSE [id number] 20:48:00* Test Item Value Reference Range Interpretation Comments POC-GLUCOSE METER (BEAKER) (test code = 1538) 103 mg/dL 70-110 TESTED AT [place] [id number] [facility] [address] POCT-GLUCOSE [id number] 20:48:00* Test Item Value Reference Range Interpretation Comments POC-GLUCOSE METER (BEAKER) (test code = 1538) 98 mg/dL 70-110 TESTED AT [address] [address] POCT-GLUCOSE [id number] 18:14:00* Test Item Value Reference Range Interpretation Comments POC-GLUCOSE METER (BEAKER) (test code = 1538) 108 mg/dL 70-110 TESTED AT [address] [address] BASIC METABOLIC [id number] 18:09:00* Test Item Value Reference Range Interpretation [...] FOR DIALYSIS PATIENTS. Specimen markedly ictericBLOOD GAS, [id number] 16:57:00* Test Item Value Reference Range Interpretation [...] (test code = 1819) 40.0 % POCT-GLUCOSE [id number] 16:51:00* Test Item Value Reference Range Interpretation Comments POC-GLUCOSE METER (BEAKER) (test code = 1538) 107 mg/dL 70-[address] [facility] [address] [facility] [address] CMV PCR, [id number] 16:28:00* Test Item Value Reference Range Interpretation [...] reaction and fluorescent monitoring of a s [employer] hybridized probe. Genetic variation and other factors can affect the acc uracy of nucleic acid testing. Therefore, the results should be interpreted in l ight of clinical data. A negative result may not exclude the presence of CMV dis ease.This test was developed and its performance characteristics determined by [facility] Pathology Department, Section of Molecular Patholog y. It has not been cleared or approved by the U.S. Food and Drug Administration (FDA), since FDA approval is not required for clinical use of the test. Validati on was done as required by The Clinical Laboratory Improvement Amendments of 198 8.POCT-GLUCOSE [id number] 15:09:00* Test Item Value Reference Range Interpretation Comments POC-GLUCOSE METER (BEAKER) (test code = 1538) 119 mg/dL 70-[address] [facility] [address] [facility] [address] POCT-GLUCOSE [id number] 14:43:00* Test Item Value Reference Range Interpretation Comments POC-GLUCOSE METER (BEAKER) (test code = 1538) 129 mg/dL 70-110 H TESTED AT [place] [id number] [facility] [address] BASIC METABOLIC [id number] 13:25:00* Test Item Value Reference Range Interpretation [...] APPLICABLE FOR DIALYSIS PATIENTS. Specimen markedly ictericPOCT-GLUCOSE [id number] 13:23:00* Test Item Value Reference Range Interpretation Comments POC-GLUCOSE METER (BEAKER) (test code = 1538) 172 mg/dL 70-110 H TESTED AT [address] [address] [id number] 13:14:00* Test Item Value Reference Range Interpretation Comments MAGNESIUM (BEAKER) (test code = 627) 2.6 mg/dL 1.6-2.6 Specimen slightly hemolyzed POCT-GLUCOSE [id number] 12:04:00* Test Item Value Reference Range Interpretation Comments POC-GLUCOSE METER (BEAKER) (test code = 1538) 205 mg/dL 70-110 H TESTED AT [place] [address] [facility] [address] POCT-GLUCOSE [id number] 11:10:00* Test Item Value Reference Range Interpretation Comments POC-GLUCOSE METER (BEAKER) (test code = 1538) 182 mg/dL 70-110 H TESTED AT [address] [address] BLOOD GAS, [id number] 10:41:00* Test Item Value Reference Range Interpretation [...] (test code = 1819) 100.0 % POCT-GLUCOSE [id number] 09:50:00* Test Item Value Reference Range Interpretation Comments POC-GLUCOSE METER (BEAKER) (test code = 1538) 138 mg/dL 70-110 H TESTED AT [address] [address] POCT-GLUCOSE [id number] 08:44:00* Test Item Value Reference Range Interpretation Comments POC-GLUCOSE METER (BEAKER) (test code = 1538) 98 mg/dL 70-110 TESTED AT [address] [address] BLOOD GAS, [id number] 06:47:00* Test Item Value Reference Range Interpretation [...] (test code = 1819) 80.0 % POCT-GLUCOSE [id number] 06:41:00* Test Item Value Reference Range Interpretation Comments POC-GLUCOSE METER (BEAKER) (test code = 1538) 123 mg/dL 70-110 H TESTED AT [address] [address] POCT-GLUCOSE [id number] 06:41:00* Test Item Value Reference Range Interpretation Comments POC-GLUCOSE METER (BEAKER) (test code = 1538) 121 mg/dL 70-[address] [facility] [address] [facility] [address] BASIC METABOLIC [id number] 06:25:00* Test Item Value Reference Range Interpretation [...] FOR DIALYSIS PATIENTS. Specimen markedly ictericBASIC METABOLIC [id number] 03:47:00* Test Item Value Reference Range Interpretation [...] NOT APPLICABLE FOR DIALYSIS PATIENTS. Specimen markedly [id number] 03:41:00* Test Item Value Reference Range Interpretation Comments MAGNESIUM (BEAKER) (test code = 627) 2.7 mg/dL 1.6-2.6 H HEPATIC FUNCTION [id number] 03:41:00* Test Item Value Reference Range Interpretation [...] 347) 104 U/L 6-55 H Specimen markedly [id number] 03:39:00* Test Item Value Reference Range Interpretation Comments PARTIAL THROMBOPLASTIN TIME (BEAKER) (test code = 760) 48.3 seconds 22.5-36.0 H PROTHROMBIN [id number] 03:38:00* Test Item Value Reference Range Interpretation [...] pat ients with mechanical heart valves.LACTIC ACID, [id number] 03:31:00* Test Item Value Reference Range Interpretation Comments LACTATE BLOOD ARTERIAL (2) (BEAKER) (test code = 2874) 0.8 mmol/L 0.5-2.2 Specimen markedly ictericCBC W/PLT COUNT & AUTO [id number] 03:24:00 * Test Item Value Reference Range [...] = 2801) 3 % 0-1 H POCT-GLUCOSE [id number] 03:06:00* Test Item Value Reference Range Interpretation Comments POC-GLUCOSE METER (BEAKER) (test code = 1538) 155 mg/dL 70-[address] [facility] [address] [facility] [address] BASIC METABOLIC [id number] 02:44:00* Test Item Value Reference Range Interpretation [...] FOR DIALYSIS PATIENTS. Specimen markedly ictericBLOOD GAS, [id number] 02:08:00* Test Item Value Reference Range Interpretation [...] 100.0 % RAD, CHEST, 1 VIEW, NON [id number] 01:40:00Reason for exam:->decreased lung sounds; possible aspirationShould this be performed at the bedside?->YesFINAL REPORT CLINICAL INDICATION: Decreased lung sounds, concern for aspiration Comparison: 06/12/2018 The cardiomediastinal contours are stable. The lung volumes remain low. Central pulmonary vascular congestion and bilateral parenchymal opacities are unchanged. There is no pneumothorax. Support lines are stable. Signed: Katherine Reich Verified Date/Time: 06/14/19 01:40:10 Reading Location: [address] Reading Room Electron ically signed by: KATHERINE REICH M.D. on 06/13/2018 01:40 AM RAD, ABDOMEN/KUB, 1 VIEW [id number] 01:37:00Reason for exam:->distended abdomenShould this be performed [...] of free intraperitoneal air. Signed: Katherine Reich Verified Date/Time: 06/13/2018 01:37:29 Reading Location: [address] Reading Room -GLUCOSE [id number] 00:36:00* Test Item Value Reference Range Interpretation Comments POC-GLUCOSE METER (BEAKER) (test code = 1538) 192 mg/dL 70-[address] [facility] [address] [facility] [address] OCCULT BLOOD, [id number] 22:31:00* Test Item Value Reference Range Interpretation Comments FECAL OCCULT BLOOD (BEAKER) (test code = 618) Positive Negative A [id number] 21:12:00* Test Item Value Reference Range Interpretation Comments MAGNESIUM (BEAKER) (test code = 627) 2.4 mg/dL 1.6-2.6 POCT-GLUCOSE [id number] 20:34:00* Test Item Value Reference Range Interpretation Comments POC-GLUCOSE METER (BEAKER) (test code = 1538) 160 mg/dL 70-110 H TESTED AT [address] [address] BASIC METABOLIC [id number] 18:27:00* Test Item Value Reference Range Interpretation [...] APPLICABLE FOR DIALYSIS PATIENTS. Specimen markedly ictericPOCT-GLUCOSE [id number] 17:35:00* Test Item Value Reference Range Interpretation Comments POC-GLUCOSE METER (BEAKER) (test code = 1538) 136 mg/dL 70-110 H TESTED AT [place] [id number] [facility] [address] BLOOD GAS, [id number] 16:12:00* Test Item Value Reference Range Interpretation [...] (test code = 1819) 40.0 % POCT-GLUCOSE [id number] 14:51:00* Test Item Value Reference Range Interpretation Comments POC-GLUCOSE METER (BEAKER) (test code = 1538) 137 mg/dL 70-110 H TESTED AT [address] [address] POCT-GLUCOSE [id number] 13:23:00* Test Item Value Reference Range Interpretation Comments POC-GLUCOSE METER (BEAKER) (test code = 1538) 132 mg/dL 70-110 H TESTED AT [address] [address] BLOOD GAS, [id number] 13:13:00* Test Item Value Reference Range Interpretation [...] code = 1819) 40.0 % BASIC METABOLIC [id number] 13:08:00* Test Item Value Reference Range Interpretation [...] NOT APPLICABLE FOR DIALYSIS PATIENTS. Specimen markedly [id number] 13:04:00* Test Item Value Reference Range Interpretation Comments MAGNESIUM (BEAKER) (test code = 627) 2.6 mg/dL 1.6-2.6 POCT-GLUCOSE [id number] 12:17:00* Test Item Value Reference Range Interpretation Comments POC-GLUCOSE METER (BEAKER) (test code = 1538) 123 mg/dL 70-110 H TESTED AT [address] [address] POCT-GLUCOSE [id number] 11:33:00* Test Item Value Reference Range Interpretation Comments POC-GLUCOSE METER (BEAKER) (test code = 1538) 133 mg/dL 70-110 H TESTED AT [address] [address] POCT-GLUCOSE [id number] 10:10:00* Test Item Value Reference Range Interpretation Comments POC-GLUCOSE METER (BEAKER) (test code = 1538) 151 mg/dL 70-110 H TESTED AT [place] [address] [facility] [address] POCT-GLUCOSE [id number] 09:07:00* Test Item Value Reference Range Interpretation Comments POC-GLUCOSE METER (BEAKER) (test code = 1538) 155 mg/dL 70-[address] [facility] [address] [facility] [address] POCT-GLUCOSE [id number] 08:05:00* Test Item Value Reference Range Interpretation Comments POC-GLUCOSE METER (BEAKER) (test code = 1538) 143 mg/dL 70-[address] [facility] [address] [facility] [address] CBC W/PLT COUNT & AUTO [id number] 07:31:00* Test Item Value Reference Range Interpretation [...] LATION PRESENT RAD, CHEST, 1 VIEW, NON [id number] 06:50:00Reason for exam:-> respiratory insufficiencyShould this be [...] MDReport Verified Date/Time: 06/12/2018 06:50:17 Reading Location: [facility] C0 13V Neuro Reading Room Electronically signed by: MD rafaela MO n 06/12/2018 06:50 AM POCT-GLUCOSE [id number] 06:23:00* Test Item Value Reference Range Interpretation Comments POC-GLUCOSE METER (BEAKER) (test code = 1538) 161 mg/dL 70-110 H TESTED AT [address] [address] POCT-GLUCOSE [id number] 05:09:00* Test Item Value Reference Range Interpretation Comments POC-GLUCOSE METER (BEAKER) (test code = 1538) 177 mg/dL 70-110 H TESTED AT [address] [address] POCT-GLUCOSE [id number] 05:09:00* Test Item Value Reference Range Interpretation Comments POC-GLUCOSE METER (BEAKER) (test code = 1538) 188 mg/dL 70-110 H TESTED AT [address] [address] BLOOD GAS, [id number] 04:41:00* Test Item Value Reference Range Interpretation [...] (test code = 1819) 50.0 % CALCIUM, [id number] 04:41:00* Test Item Value Reference Range Interpretation Comments CALCIUM IONIZED (BEAKER) (test code = 698) 1.08 mmol/L 1.12-1.27 L PH, BLOOD (BEAKER) (test code = 1810) 7.44 BASIC METABOLIC [id number] 04:24:00* Test Item Value Reference Range Interpretation [...] NOT APPLICABLE FOR DIALYSIS PATIENTS. Specimen markedly [id number] 04:23:00* Test Item Value Reference Range Interpretation Comments PHOSPHORUS (BEAKER) (test code = 604) 5.0 mg/dL 2.3-4.7 H [id number] 04:23:00* Test Item Value Reference Range Interpretation Comments MAGNESIUM (BEAKER) (test code = 627) 2.8 mg/dL 1.6-2.6 H HEPATIC FUNCTION [id number] 04:23:00* Test Item Value Reference Range Interpretation [...] 347) 96 U/L 6-55 H Specimen markedly [id number] 04:22:00* Test Item Value Reference Range Interpretation Comments PARTIAL THROMBOPLASTIN TIME (BEAKER) (test code = 760) 54.7 seconds 22.5-36.0 H PROTHROMBIN [id number] 04:21:00* Test Item Value Reference Range Interpretation [...] pat ients with mechanical heart valves.LACTIC ACID, [id number] 04:15:00* Test Item Value Reference Range Interpretation Comments LACTATE BLOOD ARTERIAL (2) (BEAKER) (test code = 2874) 0.9 mmol/L 0.5-2.2 Specimen slightly hemolyzed Specimen markedly [id number] 02:06:00* Test Item Value Reference Range Interpretation Comments POTASSIUM (BEAKER) (test code = 379) 3.5 meq/L 3.5-5.1 [id number] 02:06:00* Test Item Value Reference Range Interpretation Comments GLUCOSE RANDOM (BEAKER) (test code = 652) 225 mg/dL 70-105 H BASIC METABOLIC [id number] 00:30:00* Test Item Value Reference Range Interpretation [...] APPLICABLE FOR DIALYSIS PATIENTS. Specimen markedly ictericPOCT-GLUCOSE [id number] 00:28:00* Test Item Value Reference Range Interpretation Comments POC-GLUCOSE METER (BEAKER) (test code = 1538) 245 mg/dL 70-110 H TESTED AT [address] [address] BLOOD GAS, [id number] 22:23:00* Test Item Value Reference Range Interpretation [...] code = 1819) 50.0 % BASIC METABOLIC [id number] 20:15:00* Test Item Value Reference Range Interpretation [...] NOT APPLICABLE FOR DIALYSIS PATIENTS. Specimen markedly [id number] 20:07:00* Test Item Value Reference Range Interpretation Comments MAGNESIUM (BEAKER) (test code = 627) 2.6 mg/dL 1.6-2.6 RAD, CHEST, 1 VIEW, NON [id number] 19:02:00Reason for exam:->new right IJ lineShould this [...] MDReport Verified Date/Time: 06/11/2018 19:02:45 Reading Location: [address] Consult Reading Room C METABOLIC [id number] 15:15:00* Test Item Value Reference Range Interpretation [...] NOT APPLICABLE FOR DIALYSIS PATIENTS. Specimen markedly [id number] 15:09:00* Test Item Value Reference Range Interpretation Comments MAGNESIUM (BEAKER) (test code = 627) 2.6 mg/dL 1.6-2.6 POCT-GLUCOSE [id number] 13:44:00* Test Item Value Reference Range Interpretation Comments POC-GLUCOSE METER (BEAKER) (test code = 1538) 226 mg/dL 70-[address] [facility] [address] [facility] [address] SPIN/CONCENTRATION [id number] 12:22:00* Test Item Value Reference Range Interpretation Comments CONCENTRATION CHARGED (BEAKER) (test code = 2657) Done RAD, CHEST, 1 VIEW, NON [id number] 07:49:00Reason for exam:->pulmonary edemaShould this be performed [...] pneu mothorax or large effusion. Signed: Gela Rodriguezeport Verified Date/Time: 06/11 07:49:11 Reading Location: [facility] Radiology Reading Room Amada ctronically signed by: GELA RODRIGUEZ M.D. on 06/11/2018 07:49 AM LACTIC ACID, [id number] 04:44:00* Test Item Value Reference Range Interpretation Comments LACTATE BLOOD ARTERIAL (2) (BEAKER) (test code = 2874) 0.9 mmol/L 0.5-2.2 Specimen markedly ictericBASIC METABOLIC [id number] 04:39:00* Test Item Value Reference Range Interpretation [...] NOT APPLICABLE FOR DIALYSIS PATIENTS. Specimen markedly [id number] 04:38:00* Test Item Value Reference Range Interpretation Comments PHOSPHORUS (BEAKER) (test code = 604) 6.5 mg/dL 2.3-4.7 H [id number] 04:38:00* Test Item Value Reference Range Interpretation Comments MAGNESIUM (BEAKER) (test code = 627) 2.7 mg/dL 1.6-2.6 H HEPATIC FUNCTION [id number] 04:38:00* Test Item Value Reference Range Interpretation [...] code = 380) 116 U/L 29-20 0 [id number] 04:33:00* Test Item Value Reference Range Interpretation Comments PARTIAL THROMBOPLASTIN TIME (BEAKER) (test code = 760) 50.5 seconds 22.5-36.0 H PROTHROMBIN [id number] 04:32:00* Test Item Value Reference Range Interpretation [...] mechanical heart valves.CBC W/PLT COUNT & AUTO [id number] 04:29:00* Test Item Value Reference Range Interpretation [...] = 2801) 5 % 0-1 H CALCIUM, [id number] 04:29:00* Test Item Value Reference Range Interpretation Comments CALCIUM IONIZED (BEAKER) (test code = 698) 1.05 mmol/L 1.12-1.27 L PH, BLOOD (BEAKER) (test code = 1810) 7.42 BLOOD GAS, [id number] 04:25:00* Test Item Value Reference Range Interpretation [...] code = 1819) 60.0 % BASIC METABOLIC [id number] 22:15:00* Test Item Value Reference Range Interpretation [...] GFR IS NOT APPLICABLE FOR DIALYSIS PATIENTS. [id number] 21:07:00* Test Item Value Reference Range Interpretation Comments MAGNESIUM (BEAKER) (test code = 627) 2.8 mg/dL 1.6-2.6 H Specimen slightly hemolyzed BASIC METABOLIC [id number] 18:32:00* Test Item Value Reference Range Interpretation [...] FOR DIALYSIS PATIENTS. Specimen markedly ictericBASIC METABOLIC [id number] 12:06:00* Test Item Value Reference Range Interpretation [...] NOT APPLICABLE FOR DIALYSIS PATIENTS. Specimen markedly [id number] 11:59:00* Test Item Value Reference Range Interpretation Comments MAGNESIUM (BEAKER) (test code = 627) 2.4 mg/dL 1.6-2.6 POCT-GLUCOSE [id number] 11:58:00* Test Item Value Reference Range Interpretation Comments POC-GLUCOSE METER (BEAKER) (test code = 1538) 143 mg/dL 70-[address] [facility] [address] [facility] [address] BRONCHIAL CULTURE + GRAM [id number] 09:24:00* Test Item Value Reference Range Interpretation Comments CULTURE (BEAKER) (test code = 1095) No growth GRAM STAIN RESULT (BEAKER) (test code = 1123) 1+ WBCs GRAM STAIN RESULT (BEAKER) (test code = 00075) No organisms seen SPUTUM CULTURE + GRAM [id number] 09:24:00* Test Item Value Reference Range Interpretation Comments CULTURE (BEAKER) (test code = 1095) No growth GRAM STAIN RESULT (BEAKER) (test code = 1123) 1+ WBCs GRAM STAIN RESULT (BEAKER) (test code = 98329) 10-15 epithelial dariel ls GRAM STAIN RESULT (BEAKER) (test code = 13134) <1+ gra m positive cocci in pairs and clusters CBC W/PLT COUNT & AUTO [id number] 08:22:00* Test Item Value Reference Range Interpretation [...] PLATELETS SEEN RAD, CHEST, 1 VIEW, NON [id number] 08:07:00Reason for exam:->pulmonary edemaShould this be performed [...] MDReport Verified Date/Time: 06/10/2018 08:07:52 Reading Location: [facility] Radiology Reading Room -GLUCOSE [id number] 05:31:00* Test Item Value Reference Range Interpretation Comments POC-GLUCOSE METER (BEAKER) (test code = 1538) 124 mg/dL 70-[address] [facility] [address] [facility] [address] BASIC METABOLIC [id number] 04:24:00* Test Item Value Reference Range Interpretation [...] NOT APPLICABLE FOR DIALYSIS PATIENTS. Specimen markedly [id number] 04:16:00* Test Item Value Reference Range Interpretation Comments PARTIAL THROMBOPLASTIN TIME (BEAKER) (test code = 760) 47.0 seconds 22.5-36.0 H PROTHROMBIN [id number] 04:15:00* Test Item Value Reference Range Interpretation Comments PROTIME (BEAKER) (test code = 759) 16.9 seconds 11.7-14.7 H INR (BEAKER) (test code = 370) 1.3 <=5.9 RECOMMENDED COUMADIN/WARFARIN INR THERAPY RANGESSTANDARD DOSE: 2.0 - 3.0 Inclu herb: PROPHYLAXIS for venous thrombosis, systemic embolization; TREATMENT for giulia ous thrombosis and/or pulmonary embolus.HIGH RISK: Target INR is 2.5-3.5 for pat ients with mechanical heart valves.[id number] 04:12:00* Test Item Value Reference Range Interpretation Comments MAGNESIUM (BEAKER) (test code = 627) 2.5 mg/dL 1.6-2.6 HEPATIC FUNCTION [id number] 04:12:00* Test Item Value Reference Range Interpretation [...] U/L 6-55 H Specimen markedly ictericLACTIC ACID, [id number] 03:59:00* Test Item Value Reference Range Interpretation Comments LACTATE BLOOD ARTERIAL (2) (BEAKER) (test code = 2874) 0.9 mmol/L 0.5-2.2 Specimen markedly ictericBLOOD GAS, [id number] 03:21:00* Test Item Value Reference Range Interpretation [...] (test code = 1819) 60.0 % CALCIUM, [id number] 03:19:00* Test Item Value Reference Range Interpretation Comments CALCIUM IONIZED (BEAKER) (test code = 698) 1.12 mmol/L 1.12-1.27 PH, BLOOD (BEAKER) (test code = 1810) 7.44 Check serum Ionized Calcium level after 4 hours after IV Calcium replacement. BASIC METABOLIC [id number] 00:53:00* Test Item Value Reference Range Interpretation [...] APPLICABLE FOR DIALYSIS PATIENTS. Specimen markedly ictericPOCT-GLUCOSE [id number] 00:29:00* Test Item Value Reference Range Interpretation Comments POC-GLUCOSE METER (BEAKER) (test code = 1538) 176 mg/dL 70-[address] [facility] [address] [facility] [id number] POCT-GLUCOSE [id number] 21:27:00* Test Item Value Reference Range Interpretation Comments POC-GLUCOSE METER (BEAKER) (test code = 1538) 134 mg/dL 70-[address] [facility] [address] [facility] [address] [id number] 20:56:00* Test Item Value Reference Range Interpretation Comments MAGNESIUM (BEAKER) (test code = 627) 2.2 mg/dL 1.6-2.6 CALCIUM, [id number] 20:46:00* Test Item Value Reference Range Interpretation Comments CALCIUM IONIZED (BEAKER) (test code = 698) 1.08 mmol/L 1.12-1.27 L PH, BLOOD (BEAKER) (test code = 1810) 7.44 BLOOD GAS, [id number] 20:46:00* Test Item Value Reference Range Interpretation [...] (test code = 1819) 60.0 % POCT-GLUCOSE [id number] 20:20:00* Test Item Value Reference Range Interpretation Comments POC-GLUCOSE METER (BEAKER) (test code = 1538) 142 mg/dL 70-[address] [facility] [address] [facility] [address] BASIC METABOLIC [id number] 18:55:00* Test Item Value Reference Range Interpretation [...] PATIENTS. Specimen markedly ictericRAD, ABDOMEN/KUB, 1 VIEW [id number] 17:56:00Reason for exam:->feeding tube placement.FINAL REPORT CLINICAL [...] MDReport Verified Date/Time: 06/09/2018 17:56:44 Reading Location: [address] Reading Room -GLUCOSE [id number] 17:49:00* Test Item Value Reference Range Interpretation Comments POC-GLUCOSE METER (BEAKER) (test code = 1538) 131 mg/dL 70-[address] [facility] [address] [facility] [address] POCT-GLUCOSE [id number] 16:36:00* Test Item Value Reference Range Interpretation Comments POC-GLUCOSE METER (BEAKER) (test code = 1538) 112 mg/dL 70-[address] [facility] [address] [facility] [address] POCT-GLUCOSE [id number] 14:37:00* Test Item Value Reference Range Interpretation Comments POC-GLUCOSE METER (BEAKER) (test code = 1538) 88 mg/dL 70-[address] [facility] [address] [facility] [address] POCT-GLUCOSE [id number] 12:48:00* Test Item Value Reference Range Interpretation Comments POC-GLUCOSE METER (BEAKER) (test code = 1538) 104 mg/dL 70-[address] [facility] [address] [facility] [address] [id number] 12:46:00* Test Item Value Reference Range Interpretation Comments MAGNESIUM (BEAKER) (test code = 627) 2.3 mg/dL 1.6-2.6 BASIC METABOLIC [id number] 12:46:00* Test Item Value Reference Range Interpretation [...] NOT APPLICABLE FOR DIALYSIS PATIENTS. HEMOGLOBIN AND [id number] 11:59:00* Test Item Value Reference Range Interpretation Comments HEMOGLOBIN (BEAKER) (test code = 410) 8.0 GM/DL 13.7-17.5 L HEMATOCRIT (BEAKER) (test code = 411) 24.8 % 40.1-51.0 L BLOOD GAS, [id number] 11:29:00* Test Item Value Reference Range Interpretation [...] code = 1819) 60.0 % BASIC METABOLIC [id number] 07:54:00* Test Item Value Reference Range Interpretation [...] FOR DIALYSIS PATIENTS. Specimen markedly ictericBLOOD GAS, [id number] 06:45:00* Test Item Value Reference Range Interpretation [...] code = 1819) 75.0 % BASIC METABOLIC [id number] 06:44:00* Test Item Value Reference Range Interpretation [...] APPLICABLE FOR DIALYSIS PATIENTS. Specimen markedly ictericPOCT-GLUCOSE [id number] 06:22:00* Test Item Value Reference Range Interpretation Comments POC-GLUCOSE METER (BEAKER) (test code = 1538) 145 mg/dL 70-[address] [facility] [address] [facility] [address] [id number] 06:17:00* Test Item Value Reference Range Interpretation Comments MAGNESIUM (BEAKER) (test code = 627) 2.2 mg/dL 1.6-2.6 HEPATIC FUNCTION [id number] 06:17:00* Test Item Value Reference Range Interpretation [...] U/L 6-55 H Specimen markedly ictericBLOOD GAS, [id number] 06:04:00* Test Item Value Reference Range Interpretation [...] 75.0 % RAD, CHEST, 1 VIEW, NON [id number] 05:48:00Reason for exam:->pulmonary edemaShould this be performed [...] Stable contours. DiscretionAdditional findings: None. Signed: Adri Avendañojefferson Verified Date/Time: 06/09/2018 05:48:52 Reading Location: [address] Neuro Reading Room D GAS, [id number] 04:53:00* Test Item Value Reference Range Interpretation [...] (test code = 1819) 75.0 % CALCIUM, [id number] 04:52:00* Test Item Value Reference Range Interpretation Comments CALCIUM IONIZED (BEAKER) (test code = 698) 1.08 mmol/L 1.12-1.27 L PH, BLOOD (BEAKER) (test code = 1810) 7.55 POCT-GLUCOSE [id number] 04:32:00* Test Item Value Reference Range Interpretation Comments POC-GLUCOSE METER (BEAKER) (test code = 1538) 144 mg/dL 70-[address] [facility] [address] [facility] [address] CBC W/PLT COUNT & AUTO [id number] 04:27:00* Test Item Value Reference Range Interpretation [...] code = 2801) 3 % 0-1 H [id number] 04:21:00* Test Item Value Reference Range Interpretation Comments PARTIAL THROMBOPLASTIN TIME (BEAKER) (test code = 760) 49.5 seconds 22.5-36.0 H PROTHROMBIN [id number] 04:20:00* Test Item Value Reference Range Interpretation Comments PROTIME (BEAKER) (test code = 759) 17.8 seconds 11.7-14.7 H INR (BEAKER) (test code = 370) 1.5 <=5.9 RECOMMENDED COUMADIN/WARFARIN INR THERAPY RANGESSTANDARD DOSE: 2.0 - 3.0 Inclu herb: PROPHYLAXIS for venous thrombosis, systemic embolization; TREATMENT for giulia ous thrombosis and/or pulmonary embolus.HIGH RISK: Target INR is 2.5-3.5 for pat ients with mechanical heart valves.POCT-GLUCOSE [id number] 03:44:00* Test Item Value Reference Range Interpretation Comments POC-GLUCOSE METER (BEAKER) (test code = 1538) 147 mg/dL 70-[address] [facility] [address] [facility] [address] BASIC METABOLIC [id number] 03:13:00* Test Item Value Reference Range Interpretation [...] APPLICABLE FOR DIALYSIS PATIENTS. Specimen markedly ictericPOCT-GLUCOSE [id number] 02:34:00* Test Item Value Reference Range Interpretation Comments POC-GLUCOSE METER (BEAKER) (test code = 1538) 158 mg/dL 70-[address] [facility] [address] [facility] [address] POCT-GLUCOSE [id number] 01:37:00* Test Item Value Reference Range Interpretation Comments POC-GLUCOSE METER (BEAKER) (test code = 1538) 158 mg/dL 70-110 H TESTED AT [place] [id number] [facility] [address] POCT-GLUCOSE [id number] 23:59:00* Test Item Value Reference Range Interpretation Comments POC-GLUCOSE METER (BEAKER) (test code = 1538) 150 mg/dL 70-110 H TESTED AT [place] [id number] [facility] [address] [id number] 22:28:00* Test Item Value Reference Range Interpretation Comments MAGNESIUM (BEAKER) (test code = 627) 2.4 mg/dL 1.6-2.6 Specimen slightly hemolyzed Check Serum Potassium level 2 hours after oral potassium replacement completed o r 30 min after intravenous potassium replacement.[id number] 21:44:00* Test Item Value Reference Range Interpretation Comments POTASSIUM (BEAKER) (test code = 379) 3.6 meq/L 3.5-5.1 Specimen slightly hemolyzed Check Serum Potassium level 2 hours after oral potassium replacement completed o r 30 min after intravenous potassium replacement.CALCIUM, [id number] 21:20:00* Test Item Value Reference Range Interpretation Comments CALCIUM IONIZED (BEAKER) (test code = 698) 1.06 mmol/L 1.12-1.27 L PH, BLOOD (BEAKER) (test code = 1810) 7.52 Check serum Ionized Calcium level after 4 hours after IV Calcium replacement. BASIC METABOLIC [id number] 20:46:00* Test Item Value Reference Range Interpretation [...] APPLICABLE FOR DIALYSIS PATIENTS. Specimen markedly ictericPOCT-GLUCOSE [id number] 20:42:00* Test Item Value Reference Range Interpretation Comments POC-GLUCOSE METER (BEAKER) (test code = 1538) 158 mg/dL 70-[address] [facility] [address] [facility] [address] BLOOD [id number] 20:01:00* Test Item Value Reference Range Interpretation Comments CULTURE (BEAKER) (test code = 1095) No growth in 5 days BLOOD [id number] 20:01:00* Test Item Value Reference Range Interpretation Comments CULTURE (BEAKER) (test code = 1095) No growth in 5 days BLOOD GAS, [id number] 18:23:00* Test Item Value Reference Range Interpretation [...] (test code = 1819) 75.0 % POCT-GLUCOSE [id number] 18:21:00* Test Item Value Reference Range Interpretation Comments POC-GLUCOSE METER (BEAKER) (test code = 1538) 145 mg/dL 70-[address] [facility] [address] [facility] [address] POCT-GLUCOSE [id number] 18:21:00* Test Item Value Reference Range Interpretation Comments POC-GLUCOSE METER (BEAKER) (test code = 1538) 122 mg/dL 70-[address] [facility] [address] [facility] [address] CORTISOL,60 [id number] 18:04:00* Test Item Value Reference Range Interpretation [...] a study by Debbie et al (LAKEISHA [place] 2000,283(8):9628-45), the ACTH Stimulation Test provides important prognostic [...] level 60 minutes after cosyntropin administration. CORTISOL,30 [id number] 17:15:00* Test Item Value Reference Range Interpretation [...] to a study by Debbie et al ([facility] 1999,283(2):2898-83), the ACTH Stimulation Test provides important prognostic [...] level 60 minutes after cosyntropin administration.POCT- GLUCOSE [id number] 15:59:00* Test Item Value Reference Range Interpretation Comments POC-GLUCOSE METER (BEAKER) (test code = 1538) 162 mg/dL 70-[address] [facility] [address] [facility] [address] CORTISOL,[id number] 14:41:00* Test Item Value Reference Range Interpretation [...] to a study by Debbie et al ([facility] 2000,283(8):7215-45), the ACTH Stimulation Test provides important prognostic [...] level 60 minutes after cosyntropin administration.POCT- GLUCOSE [id number] 13:55:00* Test Item Value Reference Range Interpretation Comments POC-GLUCOSE METER (BEAKER) (test code = 1538) 158 mg/dL 70-110 H TESTED AT [address] [address] POCT-GLUCOSE [id number] 13:55:00* Test Item Value Reference Range Interpretation Comments POC-GLUCOSE METER (BEAKER) (test code = 1538) 117 mg/dL 70-110 H TESTED AT [address] [address] BASIC METABOLIC [id number] 13:17:00* Test Item Value Reference Range Interpretation [...] NOT APPLICABLE FOR DIALYSIS PATIENTS. Specimen markedly [id number] 13:13:00* Test Item Value Reference Range Interpretation Comments MAGNESIUM (BEAKER) (test code = 627) 2.5 mg/dL 1.6-2.6 POCT-GLUCOSE [id number] 12:15:00* Test Item Value Reference Range Interpretation Comments POC-GLUCOSE METER (BEAKER) (test code = 1538) 139 mg/dL 70-110 H TESTED AT [address] [address] BLOOD GAS, [id number] 11:28:00* Test Item Value Reference Range Interpretation [...] (BEAKER) (test code = 1819) 75.0 % [id number] 09:54:00* Test Item Value Reference Range Interpretation Comments MAGNESIUM (BEAKER) (test code = 627) 2.5 mg/dL 1.6-2.6 Specimen slightly hemolyzed CALCIUM, [id number] 09:22:00* Test Item Value Reference Range Interpretation Comments CALCIUM IONIZED (BEAKER) (test code = 698) 1.08 mmol/L 1.12-1.27 L PH, BLOOD (BEAKER) (test code = 1810) 7.48 Check serum Ionized Calcium level after 4 hours after IV Calcium replacement.CT, CHEST, WITHOUT [id number] 09:01:00FINAL REPORT CT scan of the chest, [...] [place] Verified Date/Time: 06/08/2018 09:01:11 Reading Location: [address] Consult Reading Room , [id number] 09:01:00FINAL REPORT CT scan of the chest, [...] No other significant change. Signed: Iman Sloan Verified Date/Time: 06/08/2018 09:01:11 Reading Location: [address] Ortho Consult Reading Room -GLUCOSE [id number] 06:37:00* Test Item Value Reference Range Interpretation Comments POC-GLUCOSE METER (BEAKER) (test code = 1538) 142 mg/dL 70-[address] [facility] [address] [facility] [address] BLOOD GAS, [id number] 06:34:00* Test Item Value Reference Range Interpretation [...] (BEAKER) (test code = 1819) 90.0 % [id number] 06:11:00* Test Item Value Reference Range Interpretation Comments PARTIAL THROMBOPLASTIN TIME (BEAKER) (test code = 760) 54.2 seconds 22.5-36.0 H PROTHROMBIN [id number] 06:10:00* Test Item Value Reference Range Interpretation [...] pat ients with mechanical heart valves.HEPATIC FUNCTION [id number] 05:51:00* Test Item Value Reference Range Interpretation [...] U/L 6-55 H Specimen markedly ictericBASIC METABOLIC [id number] 05:51:00* Test Item Value Reference Range Interpretation [...] APPLICABLE FOR DIALYSIS PATIENTS. Specimen markedly ictericPOCT-GLUCOSE [id number] 05:43:00* Test Item Value Reference Range Interpretation Comments POC-GLUCOSE METER (BEAKER) (test code = 1538) 140 mg/dL 70-[address] [facility] [address] [facility] [address] [id number] 05:36:00* Test Item Value Reference Range Interpretation Comments MAGNESIUM (BEAKER) (test code = 627) 2.3 mg/dL 1.6-2.6 [id number] 05:25:00* Test Item Value Reference Range Interpretation Comments PHOSPHORUS (BEAKER) (test code = 604) 4.9 mg/dL 2.3-4.7 H Specimen slightly hemolyzed Check Serum Phosphorus level 4 hours after IV phosphorus replacement or 8 hours after PO replacement completed.POCT-GLUCOSE [id number] 04:20:00* Test Item Value Reference Range Interpretation Comments POC-GLUCOSE METER (BEAKER) (test code = 1538) 153 mg/dL 70-[address] [facility] [address] [facility] [address] RAD, CHEST, 1 VIEW, NON [id number] 04:10:00Reason for exam:->s/p intubation FINAL REPORT CLINICAL [...] V erified Date/Time: 06/08/2018 04:10:15 Reading Location: [address] Reading Room W/PLT COUNT & AUTO [id number] 03:53:00* Test Item Value Reference Range Interpretation [...] = 2801) 2 % 0-1 H CALCIUM, [id number] 02:54:00* Test Item Value Reference Range Interpretation Comments CALCIUM IONIZED (BEAKER) (test code = 698) 1.09 mmol/L 1.12-1.27 L PH, BLOOD (BEAKER) (test code = 1810) 7.45 Check serum Ionized Calcium level after 4 hours after IV Calcium replacement. BLOOD GAS, [id number] 02:54:00* Test Item Value Reference Range Interpretation [...] 100.0 % RAD, CHEST, 1 VIEW, NON [id number] 02:16:00Reason for exam:->tachypneaFINAL REPORT CLINICAL INDICATION: Kidney Comparison: 06/07/2018 The cardiomediastinal contours are stable. The lung volumes are low but stable after extubation. Worsening, near confluent bilateral pulmonary opacities are nonspecific and may reflect pulmonary edema or multifocal pneumonitis, among other considerations. There is no pneumothorax or large pleural effusion. A left IJ CVC remains in place. Signed: Katherine Reich MDReport Verified Date/Time: 0 06/08/2018 02:16:21 Reading Location: [address] Reading Room E lectronically signed by: KATHERINE REICH M.D. on 06/08/2018 02:16 AM BASIC METABOLIC [id number] 01:44:00* Test Item Value Reference Range Interpretation [...] APPLICABLE FOR DIALYSIS PATIENTS. Specimen markedly ictericPOCT-GLUCOSE [id number] 01:18:00* Test Item Value Reference Range Interpretation Comments POC-GLUCOSE METER (BEAKER) (test code = 1538) 122 mg/dL 70-[address] [facility] [address] [facility] [address] BLOOD GAS, [id number] 01:03:00* Test Item Value Reference Range Interpretation [...] (test code = 1819) 100.0 % POCT-GLUCOSE [id number] 00:19:00* Test Item Value Reference Range Interpretation Comments POC-GLUCOSE METER (BEAKER) (test code = 1538) 136 mg/dL 70-[address] [facility] [address] [facility] [address] BLOOD GAS, [id number] 23:19:00* Test Item Value Reference Range Interpretation [...] (test code = 1819) 40.0 % POCT-GLUCOSE [id number] 22:58:00* Test Item Value Reference Range Interpretation Comments POC-GLUCOSE METER (BEAKER) (test code = 1538) 128 mg/dL 70-[address] [facility] [address] [facility] [address] POCT-GLUCOSE [id number] 22:00:00* Test Item Value Reference Range Interpretation Comments POC-GLUCOSE METER (BEAKER) (test code = 1538) 108 mg/dL 70-[address] [facility] [address] [facility] [address] BASIC METABOLIC [id number] 21:50:00* Test Item Value Reference Range Interpretation [...] NOT APPLICABLE FOR DIALYSIS PATIENTS. Specimen markedly [id number] 21:38:00* Test Item Value Reference Range Interpretation Comments MAGNESIUM (BEAKER) (test code = 627) 2.0 mg/dL 1.6-2.6 CALCIUM, [id number] 21:15:00* Test Item Value Reference Range Interpretation Comments CALCIUM IONIZED (BEAKER) (test code = 698) 1.12 mmol/L 1.12-1.27 PH, BLOOD (BEAKER) (test code = 1810) 7.51 Check serum Ionized Calcium level after 4 hours after IV Calcium replacement. POCT-GLUCOSE [id number] 20:58:00* Test Item Value Reference Range Interpretation Comments POC-GLUCOSE METER (BEAKER) (test code = 1538) 97 mg/dL 70-[address] [facility] [address] [facility] [address] POCT-GLUCOSE [id number] 19:42:00* Test Item Value Reference Range Interpretation Comments POC-GLUCOSE METER (BEAKER) (test code = 1538) 101 mg/dL 70-[address] [facility] [address] [facility] [address] POCT-GLUCOSE [id number] 18:42:00* Test Item Value Reference Range Interpretation Comments POC-GLUCOSE METER (BEAKER) (test code = 1538) 97 mg/dL 70-110 TESTED AT [address] [address] BLOOD GAS, [id number] 16:56:00* Test Item Value Reference Range Interpretation [...] (test code = 1819) 100.0 % POCT-GLUCOSE [id number] 16:45:00* Test Item Value Reference Range Interpretation Comments POC-GLUCOSE METER (BEAKER) (test code = 1538) 149 mg/dL 70-110 H TESTED AT [address] [address] POCT-GLUCOSE [id number] 15:25:00* Test Item Value Reference Range Interpretation Comments POC-GLUCOSE METER (BEAKER) (test code = 1538) 74 mg/dL 70-110 TESTED AT [address] [address] POCT-GLUCOSE [id number] 14:31:00* Test Item Value Reference Range Interpretation Comments POC-GLUCOSE METER (BEAKER) (test code = 1538) 129 mg/dL 70-110 H TESTED AT [address] [address] [id number] 13:46:00* Test Item Value Reference Range Interpretation Comments MAGNESIUM (BEAKER) (test code = 627) 1.8 mg/dL 1.6-2.6 BASIC METABOLIC [id number] 13:46:00* Test Item Value Reference Range Interpretation [...] APPLICABLE FOR DIALYSIS PATIENTS. Specimen markedly ictericPOCT-GLUCOSE [id number] 13:03:00* Test Item Value Reference Range Interpretation Comments POC-GLUCOSE METER (BEAKER) (test code = 1538) 182 mg/dL 70-[address] [facility] [address] [facility] [address] ANTI-MITOCHONDRIAL AB, REFLEX TO [id number] 11:38:00* Test Item Value Reference Range Interpretation Comments SCAN RESULT (test code = 1592687) CBC W/PLT COUNT & AUTO [id number] 11:36:00* Test Item Value Reference Range Interpretation [...] Received comment: User comments: Slide comments: POCT-GLUCOSE [id number] 11:35:00* Test Item Value Reference Range Interpretation Comments POC-GLUCOSE METER (BEAKER) (test code = 1538) 128 mg/dL 70-[address] [facility] [address] [facility] [address] POCT-GLUCOSE [id number] 11:13:00* Test Item Value Reference Range Interpretation Comments POC-GLUCOSE METER (BEAKER) (test code = 1538) 97 mg/dL 70-[address] [facility] [address] [facility] [address] POCT-GLUCOSE [id number] 11:13:00* Test Item Value Reference Range Interpretation Comments POC-GLUCOSE METER (BEAKER) (test code = 1538) 68 mg/dL 70-[address] [facility] [address] [facility] [address] BLOOD GAS, [id number] 10:41:00* Test Item Value Reference Range Interpretation [...] code = 1819) 100.0 % CATHETER TIP [id number] 09:30:00* Test Item Value Reference Range Interpretation Comments CULTURE (BEAKER) (test code = 1095) No growth BLOOD GAS, [id number] 08:13:00* Test Item Value Reference Range Interpretation [...] (test code = 1819) 65.0 % POCT-GLUCOSE [id number] 07:48:00* Test Item Value Reference Range Interpretation Comments POC-GLUCOSE METER (BEAKER) (test code = 1538) 127 mg/dL 70-110 H TESTED AT [address] [address] RAD, CHEST, 1 VIEW, NON [id number] 07:37:00Reason for exam:->resp failureShould this be performed [...] worsening of interstitial pulmonary disease. Signed: Keith Garciaeport Verified Date/Time: 06/07/2018 07:37:40 Reading Location: [facility] Radiology Reading Room -GLUCOSE METER 2018-06-07 06:32:00* Test Item Value Reference Range Interpretation Comments POC-GLUCOSE METER (BEAKER) (test code = 1538) 165 mg/dL 70-110 H TESTED AT [facility] [address] [facility] [address] BLOOD GAS, [id number] 05:35:00* Test Item Value Reference Range Interpretation [...] (test code = 1819) 60.0 % CALCIUM, [id number] 05:35:00* Test Item Value Reference Range Interpretation Comments CALCIUM IONIZED (BEAKER) (test code = 698) 0.96 mmol/L 1.12-1.27 L PH, BLOOD (BEAKER) (test code = 1810) 7.45 HEPATIC FUNCTION [id number] 05:32:00* Test Item Value Reference Range Interpretation [...] 103 U/L 6-55 H Specimen markedly ictericPOCT-GLUCOSE [id number] 05:18:00* Test Item Value Reference Range Interpretation Comments POC-GLUCOSE METER (BEAKER) (test code = 1538) 182 mg/dL 70-[address] [facility] [address] [facility] [address] BASIC METABOLIC [id number] 05:17:00* Test Item Value Reference Range Interpretation [...] FOR DIALYSIS PATIENTS. Specimen markedly ictericLACTIC ACID, [id number] 04:58:00* Test Item Value Reference Range Interpretation Comments LACTATE BLOOD ARTERIAL (2) (BEAKER) (test code = 2874) 1.2 mmol/L 0.5-2.2 Specimen markedly [id number] 04:50:00* Test Item Value Reference Range Interpretation Comments PARTIAL THROMBOPLASTIN TIME (BEAKER) (test code = 760) 43.5 seconds 22.5-36.0 H PROTHROMBIN [id number] 04:49:00* Test Item Value Reference Range Interpretation Comments PROTIME (BEAKER) (test code = 759) 18.1 seconds 11.7-14.7 H INR (BEAKER) (test code = 370) 1.5 <=5.9 RECOMMENDED COUMADIN/WARFARIN INR THERAPY RANGESSTANDARD DOSE: 2.0 - 3.0 Inclu herb: PROPHYLAXIS for venous thrombosis, systemic embolization; TREATMENT for giulia ous thrombosis and/or pulmonary embolus.HIGH RISK: Target INR is 2.5-3.5 for pat ients with mechanical heart valves.POCT-GLUCOSE [id number] 04:16:00* Test Item Value Reference Range Interpretation Comments POC-GLUCOSE METER (BEAKER) (test code = 1538) 180 mg/dL 70-110 H TESTED AT [address] [address] POCT-GLUCOSE [id number] 03:20:00* Test Item Value Reference Range Interpretation Comments POC-GLUCOSE METER (BEAKER) (test code = 1538) 171 mg/dL 70-110 H TESTED AT [address] [address] POCT-GLUCOSE [id number] 02:44:00* Test Item Value Reference Range Interpretation Comments POC-GLUCOSE METER (BEAKER) (test code = 1538) 154 mg/dL 70-110 H TESTED AT [address] [address] POCT-GLUCOSE [id number] 01:31:00* Test Item Value Reference Range Interpretation Comments POC-GLUCOSE METER (BEAKER) (test code = 1538) 140 mg/dL 70-110 H TESTED AT [address] [address] BASIC METABOLIC [id number] 01:02:00* Test Item Value Reference Range Interpretation [...] APPLICABLE FOR DIALYSIS PATIENTS. Specimen markedly ictericPOCT-GLUCOSE [id number] 00:57:00* Test Item Value Reference Range Interpretation Comments POC-GLUCOSE METER (BEAKER) (test code = 1538) 173 mg/dL 70-[address] [facility] [address] [facility] [address] POCT-GLUCOSE [id number] 23:27:00* Test Item Value Reference Range Interpretation Comments POC-GLUCOSE METER (BEAKER) (test code = 1538) 155 mg/dL 70-[address] [facility] [address] [facility] [address] BASIC METABOLIC [id number] 22:38:00* Test Item Value Reference Range Interpretation [...] NOT APPLICABLE FOR DIALYSIS PATIENTS. Specimen markedly [id number] 22:37:00* Test Item Value Reference Range Interpretation Comments MAGNESIUM (BEAKER) (test code = 627) 2.0 mg/dL 1.6-2.6 BLOOD GAS, [id number] 22:18:00* Test Item Value Reference Range Interpretation [...] (test code = 1819) 60.0 % CALCIUM, [id number] 22:15:00* Test Item Value Reference Range Interpretation Comments CALCIUM IONIZED (BEAKER) (test code = 698) 1.05 mmol/L 1.12-1.27 L PH, BLOOD (BEAKER) (test code = 1810) 7.46 POCT-GLUCOSE [id number] 22:08:00* Test Item Value Reference Range Interpretation Comments POC-GLUCOSE METER (BEAKER) (test code = 1538) 138 mg/dL 70-[address] [facility] [address] [facility] [address] POCT-GLUCOSE [id number] 21:16:00* Test Item Value Reference Range Interpretation Comments POC-GLUCOSE METER (BEAKER) (test code = 1538) 158 mg/dL 70-[address] [facility] [address] [facility] [address] [id number] 21:03:00* Test Item Value Reference Range Interpretation Comments POTASSIUM (BEAKER) (test code = 379) 3.8 meq/L 3.5-5.1 Check Serum Potassium level 2 hours after oral potassium replacement completed o r 30 min after intravenous potassium replacement.[id number] 21:03:00* Test Item Value Reference Range Interpretation Comments MAGNESIUM (BEAKER) (test code = 627) 2.0 mg/dL 1.6-2.6 Check Serum Potassium level 2 hours after oral potassium replacement completed o r 30 min after intravenous potassium replacement.POCT-GLUCOSE [id number] 20:15:00* Test Item Value Reference Range Interpretation Comments POC-GLUCOSE METER (BEAKER) (test code = 1538) 161 mg/dL 70-[address] [facility] [address] [facility] [address] POCT-GLUCOSE [id number] 20:15:00* Test Item Value Reference Range Interpretation Comments POC-GLUCOSE METER (BEAKER) (test code = 1538) 113 mg/dL 70-[address] [facility] [address] [facility] [address] POCT-GLUCOSE [id number] 19:33:00* Test Item Value Reference Range Interpretation Comments POC-GLUCOSE METER (BEAKER) (test code = 1538) 169 mg/dL 70-[address] [facility] [address] [facility] [address] [id number] 17:52:00* Test Item Value Reference Range Interpretation Comments CORTISOL, TOTAL (BEAKER) (test code = 2755) 23.9 ug/dL 3.7-19.4 H C. DIFFICILE GDH [id number] 17:45:00* Test Item Value Reference Range Interpretation Comments CDT TOXIN (test code = 8878789884) Negative Negative CDT GDH ANTIGEN (test code = 4396907270) Positive Negative A C. difficile present but toxin not detected. Indicates colonization with non-toxigenic strain or level of toxin below detectable levels. No need for enteric isolation. Treatment is rarely needed (only when strong clinical suspicion for Clostridium difficile infection) Testing performed by [employer] Rapid Cassette Assay. For GDH, published sensitivity of the assay is 98.7% compared to cytotoxicity testing. For Toxin AB, publishe d sensitivity is 87.8% and specificity 99.4% compared to cytotoxicity testing.Ve rification of kit performance was done by the [facility] Microbiology Lab prior to cl inical use.BASIC METABOLIC [id number] 16:48:00* Test Item Value Reference Range Interpretation [...] APPLICABLE FOR DIALYSIS PATIENTS. Specimen markedly ictericPOCT-GLUCOSE [id number] 15:10:00* Test Item Value Reference Range Interpretation Comments POC-GLUCOSE METER ([facility]) (test code = 1538) 78 mg/dL 70-[address] [facility] [address] [facility] [address] TROPONIN [id number] 13:26:00* Test Item Value Reference Range Interpretation Comments TROPONIN I (GAURAVAKER) (test code = 397) < ng/mL 0.00-0.03 [...] acidosis, acute neurological disease, and per sistent tachyarrhythmia.[id number] 13:14:00* Test Item Value Reference Range Interpretation [...] 0.50 MG/L FEU, the Negative Predictive Value (NEWCOMER HOSTESS V) regarding the exclusion of thrombosis is within 95-100% range.LACTIC ACID, [id number] 13:12:00* Test Item Value Reference Range Interpretation Comments LACTATE BLOOD ARTERIAL (2) (GAURAVAKER) (test code = 2874) 1.3 mmol/L 0.5-2.2 Specimen markedly [id number] 12:57:00* Test Item Value Reference Range Interpretation Comments MAGNESIUM (GAURAVAKER) (test code = 627) 2.1 mg/dL 1.6-2.6 POCT-GLUCOSE [id number] 12:21:00* Test Item Value Reference Range Interpretation Comments POC-GLUCOSE METER (BEAKER) (test code = 1538) 162 mg/dL 70-[address] [facility] [address] [facility] [address] BLOOD [id number] 12:01:00* Test Item Value Reference Range Interpretation Comments CULTURE (BEAKER) (test code = 1095) No growth in 5 days BLOOD [id number] 12:01:00* Test Item Value Reference Range Interpretation Comments CULTURE (BEAKER) (test code = 1095) No growth in 5 days YARI ANTIGEN WITH REFLEX TO [id number] 11:08:00* Test Item Value Reference Range Interpretation Comments YARI ANTIGEN (BEAKER) (test code = 1782) Positive YARI ANTIGEN [id number] 11:08:00* Test Item Value Reference Range Interpretation Comments YARI ANTIGEN TITER (BEAKER) (test code = 737) :4 POCT-GLUCOSE [id number] 11:00:00* Test Item Value Reference Range Interpretation Comments POC-GLUCOSE METER (BEAKER) (test code = 1538) 153 mg/dL 70-[address] [facility] [address] [facility] [address] RAD, CHEST, 1 VIEW, NON [id number] 10:38:00Reason for exam:->oxygen desaturation in setting of [...] to exclude other etiologies. Signed: Andrew Sloan Verified Date/Time: 06/06/2018 10:38:12 Reading Location: [facility] Radiology Reading Room -NUCLEAR ANTIBODY [...] (BEAKER) (test code = 1819) 100.0 % [id number] 09:37:00* Test Item Value Reference Range Interpretation Comments LIPASE (BEAKER) (test code = 749) 6 U/L 8-78 L Specimen markedly ictericHEPATIC FUNCTION [id number] 09:37:00* Test Item Value Reference Range Interpretation [...] 347) 105 U/L 6-55 H Specimen markedly [id number] 09:36:00* Test Item Value Reference Range Interpretation Comments AMYLASE (BEAKER) (test code = 349) 17 U/L 25-125 L Specimen markedly [id number] 09:24:00* Test Item Value Reference Range Interpretation Comments CORTISOL, TOTAL (BEAKER) (test code = 2755) 19.9 ug/dL 3.7-19.4 H SPUTUM CULTURE + GRAM [id number] 08:59:00* Test Item Value Reference Range Interpretation Comments CULTURE (BEAKER) (test code = 1095) No growth GRAM STAIN RESULT (BEAKER) (test code = 1123) 3+ WBCs GRAM STAIN RESULT (BEAKER) (test code = 56544) 0-5 epithelial cells GRAM STAIN RESULT (BEAKER) (test code = 82762) No organisms seen BRONCHIAL CULTURE + GRAM [id number] 08:58:00* Test Item Value Reference Range Interpretation Comments CULTURE (BEAKER) (test code = 1095) <1+ Normal respiratory chase pr esent GRAM STAIN RESULT (BEAKER) (test code = 1123) 4+ WBCs GRAM STAIN RESULT (BEAKER) (test code = 76145) No organisms seen BRONCHIAL CULTURE + GRAM [id number] 08:58:00* Test Item Value Reference Range Interpretation Comments CULTURE (BEAKER) (test code = 1095) No growth GRAM STAIN RESULT (BEAKER) (test code = 1123) 1+ WBCs GRAM STAIN RESULT (BEAKER) (test code = 38549) No organisms seen POCT-GLUCOSE [id number] 08:15:00* Test Item Value Reference Range Interpretation Comments POC-GLUCOSE METER (BEAKER) (test code = 1538) 117 mg/dL 70-[address] [facility] [address] [place] [address] CBC W/PLT COUNT & AUTO [id number] 07:36:00* Test Item Value Reference Range Interpretation [...] comment: User comments: Slide comments: BLOOD GAS, [id number] 06:28:00* Test Item Value Reference Range Interpretation [...] (test code = 1819) 80.0 % POCT-GLUCOSE [id number] 06:21:00* Test Item Value Reference Range Interpretation Comments POC-GLUCOSE METER (BEAKER) (test code = 1538) 130 mg/dL 70-110 H TESTED AT [place] [id number] [facility] [address] RAD, CHEST, 1 VIEW, NON [id number] 05:21:00Reason for exam:->hypoxiaShould this be performed at [...] findings: None. Signed: Adri Avendañoeport Verified Date/Time: 06/06/2018 05:21:30 Reading Location: [facility] C013V Neuro Reading Room -GLUCOSE [id number] 05:10:00* Test Item Value Reference Range Interpretation Comments POC-GLUCOSE METER (BEAKER) (test code = 1538) 144 mg/dL 70-[address] [facility] [address] [facility] [address] POCT-GLUCOSE [id number] 04:17:00* Test Item Value Reference Range Interpretation Comments POC-GLUCOSE METER (BEAKER) (test code = 1538) 161 mg/dL 70-110 H TESTED AT [place] [address] [facility] [address] [id number] 04:06:00* Test Item Value Reference Range Interpretation Comments PHOSPHORUS (BEAKER) (test code = 604) 3.8 mg/dL 2.3-4.7 Check Serum Phosphorus level 4 hours after IV phosphorus replacement or 8 hours after PO replacement completed.[id number] 04:06:00* Test Item Value Reference Range Interpretation Comments MAGNESIUM (BEAKER) (test code = 627) 2.5 mg/dL 1.6-2.6 Check Serum Phosphorus level 4 hours after IV phosphorus replacement or 8 hours after PO replacement completed.BASIC METABOLIC [id number] 04:06:00* Test Item Value Reference Range Interpretation [...] 8 hours after PO replacement completed.Specimen markedly [id number] 04:02:00 * Test Item Value Reference Range Interpretation Comments PARTIAL THROMBOPLASTIN TIME (BEAKER) (test code = 760) 44.7 seconds 22.5-36.0 H PROTHROMBIN [id number] 04:00:00* Test Item Value Reference Range Interpretation [...] pat ients with mechanical heart valves.BLOOD GAS, [id number] 03:38:00* Test Item Value Reference Range Interpretation [...] code = 1819) 70.0 % BASIC METABOLIC [id number] 03:34:00* Test Item Value Reference Range Interpretation [...] APPLICABLE FOR DIALYSIS PATIENTS. Specimen markedly ictericPOCT-GLUCOSE [id number] 03:19:00* Test Item Value Reference Range Interpretation Comments POC-GLUCOSE METER (BEAKER) (test code = 1538) 171 mg/dL 70-[address] [facility] [address] [facility] [address] POCT-GLUCOSE [id number] 02:34:00* Test Item Value Reference Range Interpretation Comments POC-GLUCOSE METER (BEAKER) (test code = 1538) 201 mg/dL 70-[address] [facility] [address] [facility] [address] POCT-GLUCOSE [id number] 01:17:00* Test Item Value Reference Range Interpretation Comments POC-GLUCOSE METER (BEAKER) (test code = 1538) 174 mg/dL 70-110 H TESTED AT [place] [address] [facility] [address] [id number] 00:15:00* Test Item Value Reference Range Interpretation Comments MAGNESIUM (BEAKER) (test code = 627) 2.3 mg/dL 1.6-2.6 POCT-GLUCOSE [id number] 00:10:00* Test Item Value Reference Range Interpretation Comments POC-GLUCOSE METER (BEAKER) (test code = 1538) 143 mg/dL 70-110 H TESTED AT [place] [address] [facility] [address] POCT-GLUCOSE [id number] 23:18:00* Test Item Value Reference Range Interpretation Comments POC-GLUCOSE METER (BEAKER) (test code = 1538) 145 mg/dL 70-110 H TESTED AT [address] [address] POCT-GLUCOSE [id number] 22:18:00* Test Item Value Reference Range Interpretation Comments POC-GLUCOSE METER (BEAKER) (test code = 1538) 186 mg/dL 70-110 H TESTED AT [address] [address] POCT-GLUCOSE [id number] 21:23:00* Test Item Value Reference Range Interpretation Comments POC-GLUCOSE METER (BEAKER) (test code = 1538) 220 mg/dL 70-110 H TESTED AT [address] [address] POCT-GLUCOSE [id number] 20:47:00* Test Item Value Reference Range Interpretation Comments POC-GLUCOSE METER (BEAKER) (test code = 1538) 248 mg/dL 70-110 H TESTED AT [address] [address] POCT-GLUCOSE [id number] 19:10:00* Test Item Value Reference Range Interpretation Comments POC-GLUCOSE METER (BEAKER) (test code = 1538) 236 mg/dL 70-110 H TESTED AT [address] [address] POCT-GLUCOSE [id number] 18:16:00* Test Item Value Reference Range Interpretation Comments POC-GLUCOSE METER (BEAKER) (test code = 1538) 275 mg/dL 70-110 H TESTED AT [address] [address] BLOOD GAS, [id number] 17:21:00* Test Item Value Reference Range Interpretation [...] (test code = 1819) 60.0 % POCT-GLUCOSE [id number] 17:12:00* Test Item Value Reference Range Interpretation Comments POC-GLUCOSE METER (BEAKER) (test code = 1538) 304 mg/dL 70-110 H Will Repeat Test/TESTED AT [address] [address] POCT-GLUCOSE [id number] 16:01:00* Test Item Value Reference Range Interpretation Comments POC-GLUCOSE METER (BEAKER) (test code = 1538) 302 mg/dL 70-110 H TESTED AT [address] [address] BLOOD GAS, [id number] 14:06:00* Test Item Value Reference Range Interpretation [...] (BEAKER) (test code = 1819) 70.0 % [id number] 13:25:00* Test Item Value Reference Range Interpretation Comments POTASSIUM (BEAKER) (test code = 379) 4.1 meq/L 3.5-5.1 Specimen slightly hemolyzed [id number] 13:25:00* Test Item Value Reference Range Interpretation Comments GLUCOSE RANDOM (BEAKER) (test code = 652) 346 mg/dL 70-105 H BASIC METABOLIC [id number] 13:18:00* Test Item Value Reference Range Interpretation [...] NOT APPLICABLE FOR DIALYSIS PATIENTS. Specimen markedly [id number] 13:17:00* Test Item Value Reference Range Interpretation Comments MAGNESIUM (BEAKER) (test code = 627) 2.4 mg/dL 1.6-2.6 Specimen slightly hemolyzed BASIC METABOLIC [id number] 13:17:00* Test Item Value Reference Range Interpretation [...] APPLICABLE FOR DIALYSIS PATIENTS. Specimen markedly ictericPOCT-GLUCOSE [id number] 11:46:00* Test Item Value Reference Range Interpretation Comments POC-GLUCOSE METER (BEAKER) (test code = 1538) 297 mg/dL 70-[address] [facility] [address] [facility] [address] RAD, CHEST, 1 VIEW, NON [id number] 11:28:00Reason for exam:->resp failureShould this be performed at the bedside?->YesFINAL REPORT AP chest HISTORY: Respiratory failure. COMPARISON: 06/04/2018. IMPRESSION: Supportive lines unchanged. Hypoinflation. Asymmetric interstitial opacities, left greater than right, increased from previous. No pneumothorax. Signed: Eric Andrade MDReport Verified Date/Time: 06/05/2018 11:28:49 Reading Location: [facility] Radiology Reading Room IRATORY PANEL [...] sample was tested at the [facility] Molecular Diagnostics Laboratory using the [employer] rray Respiratory Panel. It is FDA cleared and has been verified and approved by the [facility] Molecular Diagnostics Laboratory for clinical use on nasal swab specim ens. It is not FDA-cleared for use on bronchial wash/lavage samples. However, fo r this sample type, validation was performed and test characteristics were deter mined and approved, by [facility] laboratory for clinical use u nder the Clinical Laboratory Improvement Amendments (CLIA) of 1988 requirements. Therefore, FDA clearance is not required. This laboratory is CLIA-certified an d [employer] ([employer])-accredited to perform high complexity t esting.CBC W/PLT COUNT & AUTO [id number] 07:05:00* Test Item Value Reference Range Interpretation [...] quate Received comment: User comments: Slide comments: [id number] 06:05:00* Test Item Value Reference Range Interpretation Comments PROCALCITONIN (BEAKER) (test code = 3036) 2.30 ng/mL <0.05 H SEPSIS RISK (ng/mL)Low: 0.05-0.50Intermediate: 0.51-2.00High: > =2.01LACTIC ACID, [id number] 05:39:00* Test Item Value Reference Range Interpretation Comments LACTATE BLOOD ARTERIAL (2) (BEAKER) (test code = 2874) 1.3 mmol/L 0.5-2.2 Specimen slightly hemolyzed Specimen markedly ictericCALCIUM, [id number] 04:12:00* Test Item Value Reference Range Interpretation Comments CALCIUM IONIZED (BEAKER) (test code = 698) 0.98 mmol/L 1.12-1.27 L PH, BLOOD (BEAKER) (test code = 1810) 7.43 Check serum Ionized Calcium level after 4 hours after IV Calcium replacement. BLOOD GAS, [id number] 04:06:00* Test Item Value Reference Range Interpretation [...] (test code = 1819) 75.0 % PTH, [id number] 04:05:00* Test Item Value Reference Range Interpretation Comments PARATHYROID HORMONE INTACT (BEAKER) (test code = 577) 183.2 pg/mL 8.5-72.5 H [id number] 04:04:00* Test Item Value Reference Range Interpretation Comments PARTIAL THROMBOPLASTIN TIME (BEAKER) (test code = 760) 48.3 seconds 22.5-36.0 H PROTHROMBIN [id number] 04:03:00* Test Item Value Reference Range Interpretation [...] = 380) 90 U/L 29-20 0 POCT-GLUCOSE [id number] 00:47:00* Test Item Value Reference Range Interpretation Comments POC-GLUCOSE METER (BEAKER) (test code = 1538) 277 mg/dL 70-[address] [facility] [address] [place] [address] CALCIUM, [id number] 00:37:00* Test Item Value Reference Range Interpretation Comments CALCIUM IONIZED (BEAKER) (test code = 698) 0.95 mmol/L 1.12-1.27 L PH, BLOOD (BEAKER) (test code = 1810) 7.44 Check serum Ionized Calcium level after 4 hours after IV Calcium replacement. [id number] 00:36:00* Test Item Value Reference Range Interpretation Comments POTASSIUM (BEAKER) (test code = 379) 3.9 meq/L 3.5-5.1 8 hours after PO replacement [id number] 20:35:00* Test Item Value Reference Range Interpretation Comments MAGNESIUM (BEAKER) (test code = 627) 2.3 mg/dL 1.6-2.6 BASIC METABOLIC [id number] 20:35:00* Test Item Value Reference Range Interpretation [...] FOR DIALYSIS PATIENTS. Specimen markedly ictericU/S, ABDOMINAL, [id number] 18:10:00Abdomen limited area? Add comment if clarification [...] Ortegaeport Verified Date/Time: 06/04/2018 18:10:46 Reading Location: [facility] B1 P006J Ultrasound Reading Room -GLUCOSE METER 2018-06-04 17:48:00* Test Item Value Reference Range Interpretation Comments POC-GLUCOSE METER (BEAKER) (test code = 1538) 294 mg/dL 70-[address] [facility] [address] [facility] [address] CALCIUM, [id number] 15:55:00* Test Item Value Reference Range Interpretation Comments CALCIUM IONIZED (BEAKER) (test code = 698) 0.98 mmol/L 1.12-1.27 L PH, BLOOD (BEAKER) (test code = 1810) 7.50 RAD, ABDOMEN/KUB, 1 VIEW [id number] 14:34:00Reason for exam:->Cortrak placementFINAL REPORT Abdomen. CLINICAL HISTORY: Corpak placement. Comparison study: None available. FINDINGS: A single supine view the abdomen demonstrates a feeding tube in place, the distal aspect coiled near the antrum with the tip projecting over the mid stomach. This film is insensitive for the detection of free air. Signed: Andrew Sloaneport Verified Date/Time: 06/04/2018 14:34:10 Reading Location: [facility] C013W Consult Reading Room C METABOLIC [id number] 14:26:00* Test Item Value Reference Range Interpretation [...] FOR DIALYSIS PATIENTS. Specimen markedly ictericLACTIC ACID, [id number] 14:09:00* Test Item Value Reference Range Interpretation Comments LACTATE BLOOD ARTERIAL (2) (BEAKER) (test code = 2874) 1.2 mmol/L 0.5-2.2 Specimen markedly ictericPOCT-GLUCOSE [id number] 13:35:00* Test Item Value Reference Range Interpretation Comments POC-GLUCOSE METER (BEAKER) (test code = 1538) 247 mg/dL 70-[address] [facility] [address] [facility] [address] [id number] 11:32:00* Test Item Value Reference Range Interpretation Comments MAGNESIUM (BEAKER) (test code = 627) 2.1 mg/dL 1.6-2.6 Specimen slightly hemolyzed BASIC METABOLIC [id number] 11:32:00* Test Item Value Reference Range Interpretation [...] FOR DIALYSIS PATIENTS. Specimen markedly ictericVANCOMYCIN LEVEL, [id number] 11:20:00* Test Item Value Reference Range Interpretation Comments VANCOMYCIN RANDOM (BEAKER) (test code = 523) 27.0 ug/mL Reference Range: No NormalsURINALYSIS W/ REFLEX URINE [id number] 11:15:00 * Test Item Value Reference Range [...] = 2795) RAD, CHEST, 1 VIEW, NON [id number] 11:01:00Reason for exam:->ETT advancement, L IJ CVC [...] pulmonary edema. No fracture. Signed: Sb Shields MDReport Verified Date/Time: 06/04/2018 11:01:19 Reading Location: [facility] Radiology Reading Room C METABOLIC [id number] 10:59:00* Test Item Value Reference Range Interpretation [...] NOT APPLICABLE FOR DIALYSIS PATIENTS. Specimen markedly [id number] 10:53:00* Test Item Value Reference Range Interpretation Comments AMYLASE (BEAKER) (test code = 349) 32 U/L 25-125 Specimen markedly [id number] 10:53:00* Test Item Value Reference Range Interpretation Comments LIPASE (BEAKER) (test code = 749) 27 U/L 8-78 Specimen markedly ictericBLOOD GAS, [id number] 10:51:00* Test Item Value Reference Range Interpretation [...] (test code = 368) 5.3 % 4.3-6.1 [id number] 09:15:00* Test Item Value Reference Range Interpretation Comments PROCALCITONIN (BEAKER) (test code = 3036) 2.96 ng/mL <0.05 H SEPSIS RISK (ng/mL)Low: 0.05-0.50Intermediate: 0.51-2.00High: > =2.01RAD, CHEST, 1 VIEW, NON [id number] 09:01:00Reason for exam:->ARDSFINAL REPORT TECHNIQUE: Frontal chest radiograph dated . CLINICAL HISTORY: ARDS COMPARISON STUDY: Chest radiograph dated 9 IMPRESSION:Life support tubes and lines are unchanged. There is stable atelect asis in the left lung base. No pleural effusion or pneumothorax. Cardiomediastin al silhouette is normal in size. No pulmonary edema. No fracture. Signed: Sb Don Verified Date/Time: 06/04/2018 09:01:21 Reading Location : [facility] Radiology Reading Room IC ACID, [id number] 08:49:00* Test Item Value Reference Range Interpretation Comments LACTATE BLOOD ARTERIAL (2) (BEAKER) (test code = 2874) 1.4 mmol/L 0.5-2.2 Specimen moderately ictericBLOOD GAS, [id number] 05:26:00* Test Item Value Reference Range Interpretation [...] code = 1819) 80.0 % COMPREHENSIVE METABOLIC [id number] 04:41:00* Test Item Value Reference Range Interpretation [...] FOR DIALYSIS PATIENTS. Specimen markedly ictericHEPATIC FUNCTION [id number] 04:41:00* Test Item Value Reference Range Interpretation [...] U/L 6-55 H Specimen markedly ictericLACTIC ACID, [id number] 04:32:00* Test Item Value Reference Range Interpretation Comments LACTATE BLOOD ARTERIAL (2) (BEAKER) (test code = 2874) 1.6 mmol/L 0.5-2.2 Specimen markedly [id number] 04:31:00* Test Item Value Reference Range Interpretation Comments FIBRINOGEN LEVEL (BEAKER) (test code = 658) 592 mg/dl 225-434 H PT/[id number] 04:31:00* Test Item Value Reference Range Interpretation [...] 2.5-3.5 for pat ients with mechanical heart valves.[id number] 04:31:00* Test Item Value Reference Range Interpretation Comments PARTIAL THROMBOPLASTIN TIME (BEAKER) (test code = 760) 41.5 seconds 22.5-36.0 H PROTHROMBIN TIME/[id number] 04:30:00* Test Item Value Reference Range Interpretation [...] mechanical heart valves.CBC W/PLT COUNT & AUTO [id number] 04:15:00* Test Item Value Reference Range Interpretation [...] = 2801) 3 % 0-1 H POCT-GLUCOSE [id number] 23:44:00* Test Item Value Reference Range Interpretation Comments POC-GLUCOSE METER (BEAKER) (test code = 1538) 195 mg/dL 70-[address] [facility] [address] [facility] [address] RAD, CHEST, 1 VIEW, NON [id number] 21:14:00Reason for exam:->respiratory failure/hypoxiaShould this be performed [...] MDReport Verified Date/Time: 09/2018 21:14:49 Reading Location: [address] Consult Reading Room Electro nically signed by: SADIQ HAINES M.D. on 06/03/2018 09:14 PM FERRITIN 2018-06-03 21:11:00* Test Item Value Reference Range Interpretation Comments FERRITIN (BEAKER) (test code = 361) 1898 ng/mL 5-275 H HEPATITIS B SURFACE [id number] 20:52:00* Test Item Value Reference Range Interpretation Comments HEPATITIS B SURFACE ANTIBODY (BEAKER) (test code = 647) < mIU/mL <8.0 HEPATITIS B SURFACE [id number] 20:51:00* Test Item Value Reference Range Interpretation Comments HEPATITIS B SURFACE ANTIGEN (2) (BEAKER) (test code = 2585) Nonreactive Nonreactive HEPATITIS C [id number] 20:51:00* Test Item Value Reference Range Interpretation Comments HEPATITIS C ANTIBODY (BEAKER) (test code = 367) Nonreactive Nonrea ctive HEPATITIS B CORE ANTIBODY, [id number] 20:51:00* Test Item Value Reference Range Interpretation Comments HEPATITIS B CORE TOTAL ANTIBODY (BEAKER) (test code = 497) N onreactive Nonreactive [id number] 20:48:00* Test Item Value Reference Range Interpretation Comments MAGNESIUM (BEAKER) (test code = 627) 1.9 mg/dL 1.6-2.6 BASIC METABOLIC [id number] 20:48:00* Test Item Value Reference Range Interpretation [...] DIALYSIS PATIENTS. Specimen markedly ictericHEPATITIS A ANTIBODY, [id number] 20:45:00* Test Item Value Reference Range Interpretation Comments HEPATITIS A IGG ANTIBODY (BEAKER) (test code = 2797) Reactive N onreactive A ALPHA FETOPROTEIN (AFP), TUMOR [id number] 20:44:00* Test Item Value Reference Range Interpretation Comments ALPHA-FETOPROTEIN (BEAKER) (test code = 1094) 6.3 ng/mL <10.0 HEPATITIS B CORE ANTIBODY, [id number] 20:44:00* Test Item Value Reference Range Interpretation Comments HEPATITIS B CORE IGM ANTIBODY (BEAKER) (test code = 645) Non reactive Nonreactive HEPATITIS A ANTIBODY, [id number] 20:44:00* Test Item Value Reference Range Interpretation [...] 2590) 40 % 20-5 5 BLOOD GAS, [id number] 20:25:00* Test Item Value Reference Range Interpretation [...] 1819) 100.0 % SPUTUM CULTURE + GRAM [id number] 19:38:00* Test Item Value Reference Range Interpretation Comments CULTURE (BEAKER) (test code = 1095) <1+ Normal respiratory chase pr esent GRAM STAIN RESULT (BEAKER) (test code = 1123) 1+ White blood cells seen GRAM STAIN RESULT (BEAKER) (test code = 40336) 0-5 epithelial cells GRAM STAIN RESULT (BEAKER) (test code = 70149) <1+ gram negative ro ds URINALYSIS W/ REFLEX URINE [id number] 18:20:00* Test Item Value Reference Range Interpretation [...] SOURCE(BEAKER) (test code = 2795) BLOOD GAS, [id number] 17:17:00* Test Item Value Reference Range Interpretation [...] (BEAKER) (test code = 1819) 60.0 % VBQLG-4-TQTEVOYIRVT6430-04-08 16:17:00* Test Item Value Reference Range Interpretation Comments ALPHA-1 ANTITRYPSIN (BEAKER) (test code = 502) > mg/dL 90.00-2 00.00 H [id number] 14:26:00* Test Item Value Reference Range Interpretation Comments MAGNESIUM (BEAKER) (test code = 627) 2.0 mg/dL 1.6-2.6 BASIC METABOLIC [id number] 14:26:00* Test Item Value Reference Range Interpretation [...] FOR DIALYSIS PATIENTS. Specimen markedly ictericBLOOD GAS, [id number] 13:25:00* Test Item Value Reference Range Interpretation [...] code = 1819) 40.0 % VANCOMYCIN LEVEL, [id number] 11:06:00* Test Item Value Reference Range Interpretation Comments VANCOMYCIN TROUGH (BEAKER) (test code = 522) 45.6 ug/mL 10.0-20.0 HH BLOOD GAS, [id number] 09:54:00* Test Item Value Reference Range Interpretation [...] 40.0 % RAD, CHEST, 1 VIEW, NON [id number] 05:04:00Reason for exam:->ARDSFINAL REPORT Chest one view. [...] effusion or pneum othorax. Signed: Nicolás Ceballos Verified Date/Time: 06/03/2018 05:04:55 Reading Location: [address] Body Reading Room REHENSIVE METABOLIC PANEL [...] 700) 405 pg/mL 0-100 H LACTIC ACID, [id number] 04:01:00* Test Item Value Reference Range Interpretation Comments LACTATE BLOOD ARTERIAL (2) (BEAKER) (test code = 2874) 0.7 mmol/L 0.5-2.2 Specimen moderately ictericCBC W/PLT COUNT & AUTO [id number] 03:57:00* Test Item Value Reference Range Interpretation [...] code = 2801) 3 % 0-1 H [id number] 03:48:00* Test Item Value Reference Range Interpretation Comments FIBRINOGEN LEVEL (BEAKER) (test code = 658) 644 mg/dl 225-434 H PT/[id number] 03:48:00* Test Item Value Reference Range Interpretation [...] pat ients with mechanical heart valves.BLOOD GAS, [id number] 03:36:00* Test Item Value Reference Range Interpretation [...] (test code = 1819) 40.0 % POCT-GLUCOSE [id number] 02:21:00* Test Item Value Reference Range Interpretation Comments POC-GLUCOSE METER (BEAKER) (test code = 1538) 225 mg/dL 70-[address] [facility] [address] [facility] [address] [id number] 21:48:00* Test Item Value Reference Range Interpretation Comments MAGNESIUM (BEAKER) (test code = 627) 2.2 mg/dL 1.6-2.6 BASIC METABOLIC [id number] 21:48:00* Test Item Value Reference Range Interpretation [...] NOT APPLICABLE FOR DIALYSIS PATIENTS. Specimen markedly bkrpejhHMCDJQXYB2047-76-08 17:35:00* Test Item Value Reference Range Interpretation Comments MAGNESIUM (BEAKER) (test code = 627) 2.8 mg/dL 1.6-2.6 H Specimen moderately hemolyzed [id number] 17:35:00* Test Item Value Reference Range Interpretation Comments POTASSIUM (BEAKER) (test code = 379) 4.5 meq/L 3.5-5.1 Specimen moderately hemolyzed [id number] 15:15:00* Test Item Value Reference Range Interpretation Comments PROCALCITONIN (BEAKER) (test code = 3036) 1.58 ng/mL <0.05 H SEPSIS RISK (ng/mL)Low: 0.05-0.50Intermediate: 0.51-2.00High: > =2.01B-TYPE NATRIURETIC FACTOR (BNP)2018-06-02 14:09:00* Test Item Value Reference Range Interpretation Comments B-TYPE NATRIURETIC PEPTIDE (BEAKER) (test code = 700) 286 pg/mL 0-100 H [id number] 13:51:00* Test Item Value Reference Range Interpretation Comments PARTIAL THROMBOPLASTIN TIME (BEAKER) (test code = 760) 42.9 seconds 22.5-36.0 H PROTHROMBIN TIME/[id number] 13:50:00* Test Item Value Reference Range Interpretation [...] pat ients with mechanical heart valves.BLOOD GAS, [id number] 13:33:00* Test Item Value Reference Range Interpretation [...] (test code = 1819) 40.0 % GLUCOSE-STAT [id number] 13:33:00* Test Item Value Reference Range Interpretation Comments GLUCOSE RANDOM (BEAKER) (test code = 652) 174 mg/dL 70-110 H TSH/FREE T4 IF [id number] 07:15:00* Test Item Value Reference Range Interpretation Comments THYROID STIMULATING HORMONE (BEAKER) (test code = 772) 1.76 uIU/mL 0.35-4.94 COMPREHENSIVE METABOLIC [id number] 03:52:00* Test Item Value Reference Range Interpretation [...] Specimen markedly ictericRAD, CHEST, 1 VIEW, NON [id number] 03:35:00Reason for exam:->ARDSFINAL REPORT Chest one view. [...] [place] Verified Date/Time: 06/02/2018 03:35:13 Reading Location: [address] Body Reading Room /[id number] 03:12:00* Test Item Value Reference Range Interpretation Comments PROTIME ([facility]) (test code = 759) 16.2 seconds 11.7-14.7 H INR ([facility]) (test code = 370) 1.3 <=5.9 PARTIAL THROMBOPLASTIN TIME (BEAKER) (test code = 760) 47.4 seconds 22.5-36.0 H RECOMMENDED COUMADIN/WARFARIN INR THERAPY RANGESSTANDARD DOSE: 2.0 - 3.0 Inclu herb: PROPHYLAXIS for venous thrombosis, systemic embolization; TREATMENT for giulia ous thrombosis and/or pulmonary embolus.HIGH RISK: Target INR is 2.5-3.5 for pat ients with mechanical heart valves.[id number] 03:03:00* Test Item Value Reference Range Interpretation Comments FIBRINOGEN LEVEL ([facility]) (test code = 658) 695 mg/dl 225-434 H LACTIC ACID, [id number] 03:02:00* Test Item Value Reference Range Interpretation Comments LACTATE BLOOD ARTERIAL (2) (BEAKER) (test code = 6786) 0.7 mmol/L 0.5-2.2 Specimen markedly ictericCBC W/PLT COUNT & AUTO [id number] 02:53:00 * Test Item Value Reference Range [...] 2801) 2 % 0-1 H BLOOD GAS, [id number] 02:53:00* Test Item Value Reference Range Interpretation [...] code = 1819) 60.0 % BLOOD GAS, [id number] 00:24:00* Test Item Value Reference Range Interpretation [...] code = 1819) 60.0 % BASIC METABOLIC [id number] 17:38:00* Test Item Value Reference Range Interpretation [...] FOR DIALYSIS PATIENTS. Specimen markedly ictericBLOOD GAS, [id number] 17:10:00* Test Item Value Reference Range Interpretation [...] (test code = 1819) 60.0 % Blood [id number] 17:08:00* Test Item Value Reference Range Interpretation Comments Blood Culture (test code = 09555962) NO GROWTH AFTER 5 DAYS, FINAL REPORT [facility]U/S, ABDOMINAL, [id number] 15:11:00Abdomen limited area? Add comment if clarification [...] thickening, pericholecystic fluid, or distention. Negative sonographic Coopre sign.The common bile duct was not well [...] MDReport Verified Date/Time: 06/01/2018 15:11:50 Reading Location: [facility] C0X Ortho Consult Reading Room A GLUTAMYL TRANSFERASE (GGT) 2018-06-01 14:41:00* Test Item Value Reference Range Interpretation Comments GAMMA GLUTAMYL TRANSFERASE (BEAKER) (test code = 364) 136 U/L 9-64 H Specimen markedly ictericBLOOD GAS, [id number] 14:18:00* Test Item Value Reference Range Interpretation [...] = 1819) 60.0 % CT, CHEST, WITHOUT [id number] 13:38:00FINAL REPORT TECHNIQUE: CT of the chest, [...] rt Verified Date/Time: 06/01/2018 13:38:09 Reading Location: [facility] B1 C013X Ortho Consult Reading Room Electronically signed by: KYLE RAE MD on 07/2018 01:[address], [id number] 13:38:00FINAL REPORT TECHNIQUE: CT of the chest, [...] three months to document resolution. Signed: Kyle Raeo rt Verified Date/Time: 06/01/2018 13:38:09 Reading Location: [facility] C013X Ortho Consult Reading Room Electronically signed by: KYLE RAE MD on 07/2018 01:[address], BRAIN, WITHOUT [id number] 13:10:00FINAL REPORT CT, BRAIN, WITHOUT CONTRAST CLINICAL [...] Verified Date/Time: 06/01/2018 13:10:29 Reading Lo cation: [facility] B1 C013V Neuro Reading Room D GAS, [id number] 11:45:00* Test Item Value Reference Range Interpretation [...] 1819) 80.0 % URINALYSIS W/ REFLEX URINE [id number] 11:13:00* Test Item Value Reference Range Interpretation [...] 1414) 16.4 % 0.0-5.0 H COMPREHENSIVE METABOLIC [id number] 10:13:00* Test Item Value Reference Range Interpretation [...] 248 U/L 125-2 20 H HEPATIC FUNCTION [id number] 09:21:00* Test Item Value Reference Range Interpretation [...] = 347) 32 U/L 6-55 Specimen markedly norqjdwLWIWVGFAJT1498-72-03 09:20:00* Test Item Value Reference Range Interpretation Comments FIBRINOGEN LEVEL (BEAKER) (test code = 658) 729 mg/dl 225-434 H PT/[id number] 09:20:00* Test Item Value Reference Range Interpretation [...] 2.5-3.5 for pat ients with mechanical heart valves.[id number] 09:20:00* Test Item Value Reference Range Interpretation Comments PHOSPHORUS (BEAKER) (test code = 604) 3.9 mg/dL 2.3-4.7 [id number] 09:20:00* Test Item Value Reference Range Interpretation Comments MAGNESIUM (BEAKER) (test code = 627) 2.3 mg/dL 1.6-2.6 LACTIC ACID, [id number] 09:17:00* Test Item Value Reference Range Interpretation Comments LACTATE BLOOD ARTERIAL (2) (BEAKER) (test code = 2874) 0.7 mmol/L 0.5-2.2 Specimen markedly ictericCBC W/PLT COUNT & AUTO [id number] 09:13:00 * Test Item Value Reference Range [...] 2801) 3 % 0-1 H OXYGEN SATURATION, [id number] 09:07:00* Test Item Value Reference Range Interpretation Comments O2 SATURATION (MEASURED) (BEAKER) (test code = 1455) 80.9 % CALCIUM, [id number] 09:06:00* Test Item Value Reference Range Interpretation Comments CALCIUM IONIZED (BEAKER) (test code = 698) 1.01 mmol/L 1.12-1.27 L PH, BLOOD (BEAKER) (test code = 1810) 7.40 BLOOD GAS, [id number] 09:05:00* Test Item Value Reference Range Interpretation [...] code = 1819) 100.0 % SODIUM NA-STAT [id number] 09:05:00* Test Item Value Reference Range Interpretation Comments SODIUM (BEAKER) (test code = 381) 127 meq/L 135-148 L GLUCOSE-STAT [id number] 09:05:00* Test Item Value Reference Range Interpretation Comments GLUCOSE RANDOM (BEAKER) (test code = 652) 181 mg/dL 70-110 H HGB/HCT (H&H) - STAT [id number] 09:05:00* Test Item Value Reference Range Interpretation Comments HEMOGLOBIN (BEAKER) (test code = 410) 10.4 g/dL 13.0-16.8 L HEMATOCRIT (BEAKER) (test code = 411) 31.0 % 40.0-50.0 L POTASSIUM-STAT [id number] 09:02:00* Test Item Value Reference Range Interpretation Comments POTASSIUM (BEAKER) (test code = 379) 4.6 meq/L 3.6-5.5 RAD, CHEST, 1 VIEW, NON [id number] 08:51:00Reason for exam:->ARFShould this be performed at [...] MDReport Verified Date/Time: 06/01/2018 08:51:32 Reading Location: [facility] C013V Neuro Reading Room D GAS, [id number] 08:32:00* Test Item Value Reference Range Interpretation [...] code = 1819) 100.0 % SODIUM NA-STAT [id number] 08:32:00* Test Item Value Reference Range Interpretation Comments SODIUM (BEAKER) (test code = 381) 127 meq/L 135-148 L GLUCOSE-STAT [id number] 08:32:00* Test Item Value Reference Range Interpretation Comments GLUCOSE RANDOM (BEAKER) (test code = 652) 171 mg/dL 70-110 H HGB/HCT (H&H) - STAT [id number] 08:32:00* Test Item Value Reference Range Interpretation Comments HEMOGLOBIN (BEAKER) (test code = 410) 10.5 g/dL 13.0-16.8 L HEMATOCRIT (BEAKER) (test code = 411) 31.0 % 40.0-50.0 L CALCIUM, [id number] 08:32:00* Test Item Value Reference Range Interpretation Comments CALCIUM IONIZED (BEAKER) (test code = 698) 1.00 mmol/L 1.12-1.27 L PH, BLOOD (BEAKER) (test code = 1810) 7.43 POTASSIUM-STAT [id number] 08:30:00* Test Item Value Reference Range Interpretation Comments POTASSIUM (BEAKER) (test code = 379) 5.4 meq/L 3.6-5.5 Sodium [id number] 03:33:00* Test Item Value Reference Range Interpretation Comments Sodium Level (test code = 2951-2) 130 136-[address] [facility]kinPotassium Ehdqq3759-28-28 03:33:00* Test Item Value Reference Range Interpretation Comments Potassium Level (test code = 2823-3) 5.1 3.5-5.1 SPECIMEN SLIGHTLY ICTERICSt. Luke's Health – Memorial LufkinChloride Level 2018-06-01 03:33:00* Test Item Value Reference Range Interpretation Comments Chloride Level (test code = 2075-0) 93 98-[address] [facility] LufkinCarbon Dioxide [id number] 03:33:00* Test Item Value Reference Range Interpretation Comments Carbon Dioxide Level (test code = 2028-9) 25 22-29 [facility] LufkinAnion [id number] 03:33:00* Test Item Value Reference Range Interpretation Comments Anion Gap (test code = 91894-6) 17.1 8-[address] [facility] LufkinBlood Urea [id number] 03:33:00* Test Item Value Reference Range Interpretation Comments Blood Urea Nitrogen (test code = 3094-0) 25 7-26 VERIFIED PREVIOUS RESULTSSt. Luke's Health – Memorial LufkinCreatinine 2018-06-01 03:33:00* Test Item Value Reference Range Interpretation Comments Creatinine (test code = 2160-0) 1.47 0.72-1.[address] [facility] Memorial LufkinBUN/Creatinine [id number] 03:33:00* Test Item Value Reference Range Interpretation Comments BUN/Creatinine Ratio (test code = 3097-3) 17 6-25 [facility] Memorial LufkinEstimat Glomerular Filtration Rate 2018-06-01 03:33:00* Test Item Value Reference Range Interpretation Comments Estimat Glomerular Filtration Rate (test code = 893525373) 53 >60 L Ranges were taken from the National Kidney Disease Education Program and the [facility] Kid[facility] Foundation literature.Reference ranges:60 or greater: Arojra91-58 ( for 3 consecutive months): Chronic kidney disease 15 or less: Kidney failureSt. Luke's Health – Memorial LufkinGlucose Hziwo2031-44-51 03:33:00* Test Item Value Reference Range Interpretation Comments Glucose Level (test code = JGC1849) 160 74-[address] [facility] LufkinCalcium Niozw6730-92-91 03:33:00* Test Item Value Reference Range Interpretation Comments Calcium Level (test code = 39070-9) 8.1 8.4-10.[address] [facility] LufkinMagnesium Xraue7225-65-13 03:33:00* Test Item Value Reference Range Interpretation Comments Magnesium Level (test code = 27670-7) 2.3 1.3-2.[address] [facility] Memorial LufkinMagnesium Eihzi1362-19-75 03:33:00* Test Item Value Reference Range Interpretation Comments Magnesium Level (test code = 39520-5) 2.3 1.3-2.[address] [facility] LufkinWhite Blood [id number] 03:21:00* Test Item Value Reference Range Interpretation Comments White Blood Count (test code = 6690-2) 20.59 4.8-10.[address] [facility] Memorial LufkinRed Blood Zfljc9937-45-00 03:21:00* Test Item Value Reference Range Interpretation Comments Red Blood Count (test code = 789-8) 2.65 4.3-5.[address] [facility] Memorial LufkinHemoglobin2019-04-06 03:21:00* Test Item Value Reference Range Interpretation Comments Hemoglobin (test code = 52206-9) 9.6 14.0-18.[address] [facility] LufkinHematocrit2019-04-06 03:21:00* Test Item Value Reference Range Interpretation Comments Hematocrit (test code = 4544-3) 29.1 38.2-49.[address] [facility] Memorial LufkinMean Corpuscular Cawoqh0983-96-15 03:21:00* Test Item Value Reference Range Interpretation Comments Mean Corpuscular Volume (test code = 787-2) 109.8 81-[address] [facility] Memorial LufkinMean Corpuscular Owkffnmiib5162-06-19 03:21:00* Test Item Value Reference Range Interpretation Comments Mean Corpuscular Hemoglobin (test code = 785-6) 36.2 28-[address] [facility] Memorial LufkinMe Corpuscular Hemoglobin Concent 2018-06-01 03:21:00* Test Item Value Reference Range Interpretation Comments Mean Corpuscular Hemoglobin Concent (test code = 786-4) 33.0 31-35 [facility] Memorial LufkinRed Cell Distribution Syicy8948-96-15 03:21:00* Test Item Value Reference Range Interpretation Comments Red Cell Distribution Width (test code = 67693-6) 13.3 11.7 -14.4 [facility] Memorial LufkinPlatelet Ecjmi6900-12-05 03:21:00* Test Item Value Reference Range Interpretation Comments Platelet Count (test code = 777-3) 321 140-360 [facility] LufkinNeutrophils (%) (Auto)2018-06-01 03:21:00 * Test Item Value Reference Range Interpretation Comments Neutrophils (%) (Auto) (test code = 46775-1) 91.1 38.7-80.[address] [facility] Memorial LufkinLymphocytes (%) (Auto)2018-06-01 03:21:00 * Test Item Value Reference Range Interpretation Comments Lymphocytes (%) (Auto) (test code = 736-9) 3.4 18.0-39.[address] [facility] LufkinMonocytes (%) (Auto)2018-06-01 03:21:00* Test Item Value Reference Range Interpretation Comments Monocytes (%) (Auto) (test code = 5905-5) 2.9 4.4-11.[address] [facility] LufkinEosinophils (%) (Auto)2018-06-01 03:21:00 * Test Item Value Reference Range Interpretation Comments Eosinophils (%) (Auto) (test code = 713-8) 0.0 0.0-6.0 [facility] LufkinBasophils (%) (Auto)2018-06-01 03:21:00* Test Item Value Reference Range Interpretation Comments Basophils (%) (Auto) (test code = 706-2) 0.2 0.0-1.0 [facility] Memorial LufkinIM GRANULOCYTES %2018-06-01 03:21:00* Test Item Value Reference Range Interpretation Comments IM GRANULOCYTES % (test code = IM GRANULOCYTES %) 2.4 0.0- 1.[address] [facility] LufkinNeutrophils # (Auto)2018-06-01 03:21:00* Test Item Value Reference Range Interpretation Comments Neutrophils # (Auto) (test code = 751-8) 18.8 2.1-6.[address] [facility] Memorial LufkinLymphocytes # (Auto)2018-06-01 03:21:00* Test Item Value Reference Range Interpretation Comments Lymphocytes # (Auto) (test code = 52913-0) 0.7 1.0-3.[address] [facility] LufkinMonocytes # (Auto)2018-06-01 03:21:00* Test Item Value Reference Range Interpretation Comments Monocytes # (Auto) (test code = 742-7) 0.6 0.2-0.8 [facility] LufkinEosinophils # (Auto)2018-06-01 03:21:00* Test Item Value Reference Range Interpretation Comments Eosinophils # (Auto) (test code = 711-2) 0.0 0.0-0.4 [facility] LufkinBasophils # (Auto)2018-06-01 03:21:00* Test Item Value Reference Range Interpretation Comments Basophils # (Auto) (test code = 704-7) 0.1 0.0-0.1 [facility] Memorial LufkinAbsolute Immature Granulocyte (auto 2018-06-01 03:21:00* Test Item Value Reference Range Interpretation Comments Absolute Immature Granulocyte (auto (doug t code = Absolute Immature Granulocyte (auto) 0.49 0-0.[address] [facility] Memorial LufkinArterial Blood [id number] 00:17:00* Test Item Value Reference Range Interpretation Comments Arterial Blood pH (test code = 2744-1) 7.34 7.31-7.41 [facility] LufkinArterial Blood Partial Pressure CO2 2018-06-01 00:17:00* Test Item Value Reference Range Interpretation Comments Arterial Blood Partial Pressure CO2 (test code = 2018-09) 49 41-51 [facility] LufkinArterial Blood Partial Pressure O2 2018-06-01 00:17:00* Test Item Value Reference Range Interpretation Comments Arterial Blood Partial Pressure O2 (test code = 2018-09) 77 80-[address] [facility] LufkinArterial Blood [id number] 00:17:00* Test Item Value Reference Range Interpretation Comments Arterial Blood HCO3 (test code = 1960-4) 27 - [facility] LufkinArterial Blood Base Zwaqbe0051-28-89 00:17:00* Test Item Value Reference Range Interpretation Comments Arterial Blood Base Excess (test code = 1925-7) 1.0 -2-3 [facility] LufkinArterial Blood Oxygen Saturation 2018-06-01 00:17:00* Test Item Value Reference Range Interpretation Comments Arterial Blood Oxygen Saturation (test code = 2708-6) 94.0 95-[address] [facility] Memorial LufkinFiO22019-04-06 00:17:00* Test Item Value Reference Range Interpretation Comments FiO2 (test code = FiO2) 85 PT. ON PRVC 16, 440 +12 85[facility] Blood [id number] 00:17:00* Test Item Value Reference Range Interpretation Comments Arterial Blood pH (test code = 2744-1) 7.34 7.31-7.41 [facility]ufkinArterial Blood Partial Pressure CO2 2018-06-01 00:17:00* Test Item Value Reference Range Interpretation Comments Arterial Blood Partial Pressure CO2 (test code = 2018-8) 49 41-51 [facility] LufkinArterial Blood Partial Pressure O2 2018-06-01 00:17:00* Test Item Value Reference Range Interpretation Comments Arterial Blood Partial Pressure O2 (test code = 2018-8) 77 80-[address] [facility]ufkinArterial Blood [id number] 00:17:00* Test Item Value Reference Range Interpretation Comments Arterial Blood HCO3 (test code = 1960-4) 27 -28 [facility]ufkinArterial Blood Base Xhkvxr2819-70-96 00:17:00* Test Item Value Reference Range Interpretation Comments Arterial Blood Base Excess (test code = 1925-7) 1.0 -2-3 [facility]kinArterial Blood Oxygen Saturation 2018-06-01 00:17:00* Test Item Value Reference Range Interpretation Comments Arterial Blood Oxygen Saturation (test code = 2708-6) 94.0 95-[address] [facility] LufkinFiO22019-04-06 00:17:00* Test Item Value Reference Range Interpretation Comments FiO2 (test code = FiO2) 85 PT. ON [facility] 16, 440 +12 [facility] 2018-[facility]-31 15:20:00 [facility] [address] [address] Patient Name: INDRA GALVAN MR #: [id number] : 1980 Age/Sex: 37/M Req #: [id number] Adm Physician: KIET DUMAS MD Ordered by: DAVID HORTON Report #: [id number] Location: ICU Room/Bed: ICU [facility] Procedure: [address]/CT CHEST W Exam Date: 05/31/18 Exam Time: 1430 REPORT STATUS: Signed CT chest pulmonary embolism protocol CPT code: 44097 INDICATION: Intubated, ev aluate for pulmonary embolus; [...] a mild burden of coronary artery atherosclerosis Tsephanie gs: Right Lung: Numerous groundglass opacities have [...] 3:37 PM Dictated By: BENJAMIN VALERIO MD 36 Transcribed By : CATERINA on 05/31/181536 COPY TO: DAVID HORTON Hepatitis Be Fvchbgjx3702-43-02 08:40:00* Test Item Value Reference Range Interpretation Comments Hepatitis Be Antibody (test code = 13700-5) Negative Negative Performed at: [facility] LabMatthew [place] [address] Housing Grant Analyst: Esdras Lemon MD, Phone: [phone]. Luke's Health – Memorial LufkinHepatitis Be Weoubpvf1300-00-79 08:40:00* Test Item Value Reference Range Interpretation Comments Hepatitis Be Antibody (test code = 51925-2) Negative Negative Performed at: [place] [id number] Housing Grant Analyst: Esdras Lemon MD, Phone: [phone]. Luke's Health – Memorial LufkinHIV-1 RNA, Quantitative copies/jH3559-61-11 08:39:00* Test Item Value Reference Range Interpretation Comments HIV-1 RNA, Quantitative copies/mL (test code = 12519-4) <20 . HIV-1 RNA not detectedThe reportable range for this assay is 20 to 10,000,000cop ies HIV-1 RNA/mL.[facility]kinHIV-1 RNA, Quantitative copies/dQ7565-01-81 08:39:00* Test Item Value Reference Range Interpretation Comments HIV-1 RNA, Quantitative copies/mL (test code = 83072-6) <20 . HIV-1 RNA not detectedThe reportable range for this assay is 20 to 10,000,000cop ies HIV-1 RNA/mL.[facility] LufkinDifferential Total Cells Gjxbgub0394-53-04 07:07:00* Test Item Value Reference Range Interpretation Comments Differential Total Cells Counted (test code = Differen tial Total Cells Counted) 100 [facility] LufkinNeutrophils % (Manual)2018-05-31 07:07:00 * Test Item Value Reference Range Interpretation Comments Neutrophils % (Manual) (test code = 62158-6) 84 40-[address] [facility] LufkinLymphocytes % (Manual)2018-05-31 07:07:00 * Test Item Value Reference Range Interpretation Comments Lymphocytes % (Manual) (test code = 737-7) 3 19-[address] [facility] LufkinMonocytes % (Manual)2018-05-31 07:07:00* Test Item Value Reference Range Interpretation Comments Monocytes % (Manual) (test code = 744-3) 10 3.4-9.[address] [facility] LufkinEosinophils % (Manual)2018-05-31 07:07:00 * Test Item Value Reference Range Interpretation Comments Eosinophils % (Manual) (test code = 714-6) 3 0-7 [facility] Memorial LufkinPlatelet Muigbbbl9216-30-63 07:07:00* Test Item Value Reference Range Interpretation Comments Platelet Estimate (test code = 88027-5) ADEQUATE [facility] Memorial LufkinPlatelet Morphology Qwjnfyc1757-06-54 07:07:00* Test Item Value Reference Range Interpretation Comments Platelet Morphology Comment (test code = 19306-0) NORMAL [facility] LufkinHypochromasia2019-04-05 07:07:00* Test Item Value Reference Range Interpretation Comments Hypochromasia (test code = 728-6) SLIGHT [facility] LufkinAnisocytosis2019-04-05 07:07:00* Test Item Value Reference Range Interpretation Comments Anisocytosis (test code = 702-1) MODERATE [facility] LufkinMacrocytosis2019-04-05 07:07:00* Test Item Value Reference Range Interpretation Comments Macrocytosis (test code = 738-5) MODERATE [facility] LufkinRed Cell Morphology Eyezmbe5786-42-30 07:07:00* Test Item Value Reference Range Interpretation Comments Red Cell Morphology Comment (test code = 6742-1) ABNORMAL [facility] LufkinDifferential Total Cells Counted 2018-05-31 07:07:00* Test Item Value Reference Range Interpretation Comments Differential Total Cells Counted (test code = Marcia marvin Total Cells Counted) 100 [facility] LufkinNeutrophils % (Manual)2018-05-31 07:07:00 * Test Item Value Reference Range Interpretation Comments Neutrophils % (Manual) (test code = 68058-3) 84 40-[address] [facility] LufkinLymphocytes % (Manual)2018-05-31 07:07:00 * Test Item Value Reference Range Interpretation Comments Lymphocytes % (Manual) (test code = 737-7) 3 19-[address] [facility] LufkinMonocytes % (Manual)2018-05-31 07:07:00* Test Item Value Reference Range Interpretation Comments Monocytes % (Manual) (test code = 744-3) 10 3.4-9.[address] [facility] LufkinEosinophils % (Manual)2018-05-31 07:07:00 * Test Item Value Reference Range Interpretation Comments Eosinophils % (Manual) (test code = 714-6) 3 0-7 [facility] Memorial LufkinPlatelet Ncbdciwe3007-32-41 07:07:00* Test Item Value Reference Range Interpretation Comments Platelet Estimate (test code = 13292-2) ADEQUATE [facility] Memorial LufkinPlatelet Morphology Mawiwsy0422-83-32 07:07:00* Test Item Value Reference Range Interpretation Comments Platelet Morphology Comment (test code = 65111-0) NORMAL [facility] LufkinHypochromasia2019-04-05 07:07:00* Test Item Value Reference Range Interpretation Comments Hypochromasia (test code = 728-6) SLIGHT [facility] LufkinAnisocytosis2019-04-05 07:07:00* Test Item Value Reference Range Interpretation Comments Anisocytosis (test code = 702-1) MODERATE [facility] LufkinMacrocytosis2019-04-05 07:07:00* Test Item Value Reference Range Interpretation Comments Macrocytosis (test code = 738-5) MODERATE [facility] LufkinRed Cell Morphology Icnnmjg1034-44-11 07:07:00* Test Item Value Reference Range Interpretation Comments Red Cell Morphology Comment (test code = 6742-1) ABNORMAL [facility] Memorial LufkinTotal Waaslldlp7386-51-97 06:43:00* Test Item Value Reference Range Interpretation Comments Total Bilirubin (test code = 1975-2) 17.5 0.2-1.[address] [facility] LufkinAspartate Amino Transf (AST/SGOT) 2018-05-31 06:43:00* Test Item Value Reference Range Interpretation Comments Aspartate Amino Transf (AST/SGOT) (test code = Aspartate Amino Transf (AST/SGOT)) 97 5-[address] [facility] LufkinAlanine Aminotransferase (ALT/SGPT) 2018-05-31 06:43:00* Test Item Value Reference Range Interpretation Comments Alanine Aminotransferase (ALT/SGPT) (test code = 1742-6) 28 0-55 [facility] LufkinTotal Tadfomu4076-67-18 06:43:00* Test Item Value Reference Range Interpretation Comments Total Protein (test code = 2885-2) 6.1 6.5-8.[address] [facility] Memorial LufkinAlbumin2019-04-05 06:43:00* Test Item Value Reference Range Interpretation Comments Albumin (test code = 1751-7) 1.7 3.5-5.[address] [facility] LufkinGlobulin2019-04-05 06:43:00* Test Item Value Reference Range Interpretation Comments Globulin (test code = 32831-5) 4.4 2.3-3.[address] [facility] LufkinAlbumin/Globulin Lhdvm3086-01-10 06:43:00 * Test Item Value Reference Range Interpretation Comments Albumin/Globulin Ratio (test code = 1759-0) 0.4 0.8-2.[address] [facility] Memorial LufkinAlkaline Ovnztditlee3317-21-96 06:43:00* Test Item Value Reference Range Interpretation Comments Alkaline Phosphatase (test code = 6768-6) 149 40-150 [facility] Memorial LufkinCHEST SINGLE (PORTABLE)2018-05-31 05:31:00 [place] [address] Patient Name: INDRA GALVAN MR #: [id number] : 1980 Age/Sex: 37/M Req #: [id number] Adm Physician: KIET DUMAS MD Ordered by: MANDEEP MARIE MD Report #: [id number] Location: ICU Room/Bed: ICU [facility] Procedure: 0405-000 3 DX/CHEST SINGLE (PORTABLE) Exam [...] OMERO FLORES MD on 05/31/18531 Transcribed By: [facility] RAN on 05/31/18531 COPY TO: MANDEEP MARIE MD Urine Itmwmrczye5300-54-19 01:57:00* Test Item Value Reference Range Interpretation Comments Urine Osmolality (test code = 2695-5 353 . 24 hr : 300 - 900 Random: 50 - 1400 After 12hr fluid restriction: >850Performed at: - [facility] [address] [place], [place] [id number] Director: Alli Georges MD, Phone: [phone]. Luke's Health – Memorial LufkinUrine Osmolality 2018-05-31 01:57:00* Test Item Value Reference Range Interpretation Comments Urine Osmolality (test code = 2695-5) 353 . 24 hr : 300 - 900 Random: 50 - 1400 After 12hr fluid restriction: >850Performed at: - [facility] [address] [place], [place] [id number] Director: Alli Georges MD, Phone: [phone] [facility] CenterIR GNRJNKS7306-54-07 17:22:00 [facility] [address] [place] [address] Patient Name: INDRA GALVAN MR #: [id number] : 1980 Age/Sex: 37/M Req #: [id number] Adm Physician: KIET DUMAS MD Ordered by: MANDEEP MARIE MD Report #: [id number] Location: ICU Room/Bed: ICU [facility] Procedure: 0404-004 8 DX/IR CONSULT Exam Date: [...] a 0.018 " skinny wire. A 5 Vietnamese micropuncture sheat h was then placed and through the micropuncture sheath a 0.035 " Amplatz super stiff wire placed centrally. Dilatation with a 7 Vietnamese Rajesh dilator was a ccomplished. A 7 Vietnamese Arrow triple-lumen 20 cm long central line was then pl aced over the Amplatz wire. Each lumen was flushed with saline. Catheter se cured to the skin with 3-0 Ethilon. Post procedure chest x-ray was ordere dFredy Impression: Successful placement of a triple-lumen central line. Signed by: Dr. Kandi Anand DO on 05/30/2018 5:31 PM Dictated By: Randall ANAND DO 30 Tr anscribed By: CATERINA on 05/30/181730 COPY TO: MANDEEP MARIE MD NON-TUNNELLED CVC CATH JONFEBX3828-07-24 17:22:00 [place] [address] Patient Name: INDRA GALVAN MR #: [id number] : 1980 Age/Sex: 37/M Req #: [id number] Adm Physician: KIET DUMAS MD Ordered by: MANDEEP MARIE MD Report #: [id number] Location: ICU Room/Bed: ICU [facility] Procedure: 0404-000 3 IR/NON-TUNNELLED CVC CATH PLACMNT [...] 0.018 " skinny wire . A 5 Vietnamese micropuncture sheath was then placed and through the micropunctur e sheath a 0.035 " Amplatz superstiff wire placed centrally. Dilatation with a 7 Vietnamese Rajesh dilator was accomplished. A 7 Vietnamese Arrow triple-lumen 20 cm long central line was then placed over the Amplatz wire. Each lumen was flushed with saline. Catheter secured to the skin with 3-0 Ethilon. Post procedure chest x-ray was ordered. Impression: Successful placement of a triple-lumen central line. Signed by: Dr. Kandi Anand DO on 05/31/19 5:31 PM Dictated By: KANDI ANAND DO 30 Transcribed By: CATERINA on 05/30/181730 LINING FOLDER Y TO: MANDEEP MARIE MD US GUIDANCE FOR VASCULAR KUIWF3183-10-30 17:22:00 [place] [address] Patient Name: INDRA GALVAN MR #: [id number] : 1980 Age/Sex: 37/M Req #: [id number] Adm Physician: KIET DUMAS MD Ordered by: MANDEEP MARIE MD Report #: [id number] Location: ICU Room/Bed: ICU [facility] Procedure: 0404-001 8 US/US GUIDANCE FOR VASCULAR [...] 0.018 " skinny wire . A 5 Vietnamese micropuncture sheath was then placed and through the micropunctur e sheath a 0.035 " Amplatz superstiff wire placed centrally. Dilatation with a 7 Vietnamese Rajesh dilator was accomplished. A 7 Vietnamese Arrow triple-lumen 20 cm long central line was then placed over the Amplatz wire. Each lumen was flushed with saline. Catheter secured to the skin with 3-0 Ethilon. Post procedure chest x-ray was ordered. Impression: Successful placement of a triple-lumen central line. Signed by: Dr. Kandi Anand DO on 05/31/19 5:31 PM Dictated By: KANDI ANAND DO 30 Transcribed By: CATERINA on 05/30/181730 LINING FOLDER Y TO: MANDEEP MARIE MD Blood Jxvwuck2225-08-59 17:10:00* Test Item Value Reference Range Interpretation Comments Blood Culture (test code = 51945431) NO GROWTH AFTER 72 HOURS [facility] XRAY LINE VMYWQBYGC5747-41-61 15:38:00 [facility] [address] [place] [address] Patient Name: INDRA GALVAN MR #: [id number] : 1980 Age/Sex: 37/M Req #: [id number] Adm Physician: KIET DUMAS MD Ordered by: KANDI ANAND DO Report #: [id number] Location: ICU Room/Bed: ICU [facility] Procedure: [id number] DX/CHEST XRAY LINE PLACEMENT Exam Date: Exam [...] KANDI ANAND DO CHEST SINGLE (PORTABLE)2018-05-30 14:49:00 [place] [address] Patient Name: INDRA GALVAN MR #: [id number] : [birth year] Age/Sex: 37/M Req #: [id number] Adm Physician: KIET DUMAS MD Ordered by: MARITZA SANTANA MD Report #: [id number] Location: ICU Room/Bed: ICU [facility] Procedure: 1912-0365 DX/CHEST SINGLE (PORTABLE) Exam Date: 05/30/18 Exam [...] PM Dictated B y: KANDI ANAND DO 1451 Transcribed By: CATERINA on 05/30/18 1451 COPY TO: MARITZA SANTANA MD Urine Legionella Uroczbp4461-07-43 12:08:00* Test Item Value Reference Range Interpretation Comments Urine Legionella Antigen (test code = 79793-5) Negative Negativ e Presumptive negative for L. pneumophila serogroup 1 antigenin urine, suggesting no recent or current infection.Legionnaires' disease cannot be ruled out since o therserogroups and species may also cause disease.Performed at: [facility] [address] [place], [place] [id number] Director: Esdras Lemon MD, Phone: [phone]. Luke's Health – Memorial LufkinUrine Legionella Udavrsd6630-24-61 12:08:00* Test Item Value Reference Range Interpretation Comments Urine Legionella Antigen (test code = 25094-0) Negative Negativ e Presumptive negative for L. pneumophila serogroup 1 antigenin urine, suggesting no recent or current infection.Legionnaires' disease cannot be ruled out since o therserogroups and species may also cause disease.Performed at: [facility] [address] [place], [place] [id number] Director: Esdras Lemon MD, Phone: [phone]. Luke's Health – Memorial LufkinHepatitis C Sguwsktk0337-30-11 11:20:00* Test Item Value Reference Range Interpretation Comments Hepatitis C Antibody (test code = 28120-9) 0.1 0.0-0.9 Negative: < 0.8 Indeterminate: 0.8 - 0.9 Positive: > 0.9 The CDC recommends that a positive HCV antibody result be followed up with a HCV Nucleic Acid Amplification test (434541).Performed at: [facility] [id number] [place] [id number] Director: Alli Georges MD, Phone: [phone]. Luke's Health – Memorial LufkinHepatitis C Hzqesvnw4699-22-61 11:20:00* Test Item Value Reference Range Interpretation Comments Hepatitis C Antibody (test code = 90050-7) 0.1 0.0-0.9 Negative: < 0.8 Indeterminate: 0.8 - 0.9 Positive: > 0.9 The CDC recommends that a positive HCV antibody result be followed up with a HCV Nucleic Acid Amplification test (947711).Performed at: [facility] [address] [place] [id number] Director: Alli Georges MD, Phone: [phone]. Luke's Health – Memorial LufkinUrine WWL9433-70-70 11:03:00* Test Item Value Reference Range Interpretation Comments Urine WBC (test code = 5821-4) 11-20 0-[address] [facility] Memorial LufkinUrine NBV4185-55-77 11:03:00* Test Item Value Reference Range Interpretation Comments Urine RBC (test code = 24587-6) NONE 0-5 [facility] Memorial LufkinUrine Pnigukru4072-45-48 11:03:00* Test Item Value Reference Range Interpretation Comments Urine Bacteria (test code = 23912-6) FEW NONE [facility] Memorial LufkinUrine Epithelial Alklh2133-06-32 11:03:00 * Test Item Value Reference Range Interpretation Comments Urine Epithelial Cells (test code = 43392-6) RARE NONE [facility] Memorial LufkinUrine Transitional Epithelial Cells 2018-05-30 11:03:00* Test Item Value Reference Range Interpretation Comments Urine Transitional Epithelial Cells (test code = 8249-5) FEW NONE [facility] Memorial LufkinUrine Transitional Epithelial Cells 2018-05-30 11:03:00* Test Item Value Reference Range Interpretation Comments Urine Transitional Epithelial Cells (test code = 8249-5) FEW NONE [facility] LufkinUrine Bqgfa9275-83-60 10:31:00* Test Item Value Reference Range Interpretation Comments Urine Color (test code = 5778-6) RED YELLOW H [facility] Memorial LufkinUrine Paeutrm0519-93-50 10:31:00* Test Item Value Reference Range Interpretation Comments Urine Clarity (test code = 46277-3) SL CLOUDY CLEAR H [facility] Memorial LufkinUrine Specific Wciwytk6770-39-83 10:31:00 * Test Item Value Reference Range Interpretation Comments Urine Specific [place] (test code = 5811-5) 1.020 1.010-1.[address] [facility] LufkinUrine dO3073-39-26 10:31:00* Test Item Value Reference Range Interpretation Comments Urine pH (test code = 45731-3) 6 5-7 [facility] LufkinUrine Leukocyte Hkhwvpbq5515-79-97 10:31:00* Test Item Value Reference Range Interpretation Comments Urine Leukocyte Esterase (test code = 5799-2) NEGATIVE NEGATIVE [facility] LufkinUrine Ekwsuxg9051-45-10 10:31:00* Test Item Value Reference Range Interpretation Comments Urine Nitrite (test code = 57425-0) [facility] Sssqjiq0620-43-93 10:31:00* Test Item Value Reference Range Interpretation Comments Urine Protein (test code = 5804-0) TRACE NEGATIVE [facility] CenterU[facility] Glucose (UA)2018-05-30 10:31:00* Test Item Value Reference Range Interpretation Comments Urine Glucose (UA) (test code = 2349-9) NEGATIVE NEGATIVE [facility] LufkinUrine Cbhfqwp9025-75-42 10:31:00* Test Item Value Reference Range Interpretation Comments Urine Ketones (test code = 53745-6) NEGATIVE NEGATIVE [facility] LufkinUrine Ytowcpqbjjza4139-68-56 10:31:00* Test Item Value Reference Range Interpretation Comments Urine Urobilinogen (test code = 03557-9) 1 0.2-1 [facility] LufkinUrine Fabqwljzf4220-06-00 10:31:00* Test Item Value Reference Range Interpretation Comments Urine Bilirubin (test code = 1978-6) 3+ NEGATIVE H Confirmatory test currently unavailable. False positive results may occur.[facility] LufkinUrine Vyyqq7200-88-60 10:31:00* Test Item Value Reference Range Interpretation Comments Urine Blood (test code = 06145-5) NEGATIVE NEGATIVE [facility] LufkinFolate2019-04-03 08:07:00* Test Item Value Reference Range Interpretation Comments Folate (test code = 2284-8) 30.1 7.0-15.[address] [facility] LufkinFolate2019-04-03 08:07:00* Test Item Value Reference Range Interpretation Comments Folate (test code = 2284-8) 30.1 7.0-15.[address] [facility] Memorial LufkinCHEST SINGLE (PORTABLE)2018-05-29 07:58:00 [facility] [address] [place] [address] Patient Name: INDRA GALVAN MR #: [id number] : 1980 Age/Sex: 37/M Req #: [id number] Adm Physician: KIET DUMAS MD Ordered by: KIRT SCHULTZ MD Report #: [id number] Location: MED/SURG3 Room/Bed: 296 Procedure: [id number] DX /CHEST SINGLE (PORTABLE) Exam Date: 05/29/18 [...] 8:01 AM Dictated By: SONIA MORA MD 08 Transcribed By: DIONY ROBERTS on 05/29/18 0801 COPY TO: KIRT SCHULTZ MD Vitamin B12 Level 2018-05-29 07:19:00* Test Item Value Reference Range Interpretation Comments Vitamin B12 Level (test code = 83249-4) 1700 213-[address] [facility] LufkinVitamin B12 Ojeik6737-42-17 07:19:00* Test Item Value Reference Range Interpretation Comments Vitamin B12 Level (test code = 57591-8) 1700 213-[address] [facility] LufkinIron Stixv5194-00-05 07:07:00* Test Item Value Reference Range Interpretation Comments Iron Level (test code = 2498-4) 61 65-[address] [facility] Memorial LufkinTotal Iron Binding Dlpptwqf8932-06-75 07:07:00* Test Item Value Reference Range Interpretation Comments Total Iron Binding Capacity (test code = 2500-7) 116 261-[address] [facility] Memorial LufkinPercent Iron Vulfboqtqs1547-12-29 07:07:00* Test Item Value Reference Range Interpretation Comments Percent Iron Saturation (test code = 2502-3) 53 15-[address] [facility] Memorial LufkinTransferrin2019-04-03 07:07:00* Test Item Value Reference Range Interpretation Comments Transferrin (test code = 3034-6) 83 174-[address] [facility] LufkinIron Tclmd9948-34-83 07:07:00* Test Item Value Reference Range Interpretation Comments Iron Level (test code = 2498-4) 61 65-[address] [facility] Memorial LufkinTotal Iron Binding Mqfhwufm7587-83-10 07:07:00* Test Item Value Reference Range Interpretation Comments Total Iron Binding Capacity (test code = 2500-7) 116 261-[address] [facility]kinPeravita [facility] Iron Izcspyirhq7831-96-80 07:07:00* Test Item Value Reference Range Interpretation Comments Percent Iron Saturation (test code = 2502-3) 53 15-[address] [facility] LufkinTransferrin2019-04-03 07:07:00* Test Item Value Reference Range Interpretation Comments Transferrin (test code = 3034-6) 83 174-[address] [facility] LufkinMyelocytes %2018-05-29 07:06:00* Test Item Value Reference Range Interpretation Comments Myelocytes % (test code = 749-2) 1 0-[address] [facility] LufkinMyelocytes %2018-05-29 07:06:00* Test Item Value Reference Range Interpretation Comments Myelocytes % (test code = 749-2) 1 0-[address] [facility] LufkinPercent Reticulocyte Lgvhc3358-99-25 06:26:00* Test Item Value Reference Range Interpretation Comments Percent Reticulocyte Count (test code = 76487-2) 6.4 0.8-[address] [facility]kinPerav[facility] system Reticulocyte Xgmfg6626-23-56 06:26:00* Test Item Value Reference Range Interpretation Comments Percent Reticulocyte Count (test code = 18650-0) 6.4 0.8-[address] [facility] LufkinHepatitis Be Ddzkstf7190-95-30 05:14:00* Test Item Value Reference Range Interpretation Comments Hepatitis Be Antigen (test code = 37118-0) Negative Negative [facility] B Core Total Uetpnbbo1884-43-41 05:14:00* Test Item Value Reference Range Interpretation Comments Hepatitis B Core Total Antibody (test code = 35792-1) Negative Negative Performed at: [address] [id number] Director: Alli Georges MD, Phone: [phone] Saint [facility] Hospital B Surface Mttlibd5259-60-99 05:14:00* Test Item Value Reference Range Interpretation Comments Hepatitis B Surface Antigen (test code = 5196-1) Negative Negat mumtaz [facility] Be Jvecwos2021-42-69 05:14:00* Test Item Value Reference Range Interpretation Comments Hepatitis Be Antigen (test code = 64279-6) Negative Negative [facility] B Core Total Vkqccyyb3225-34-44 05:14:00* Test Item Value Reference Range Interpretation Comments Hepatitis B Core Total Antibody (test code = 19411-0) Negative Negative Performed at: [facility] [address] [id number] Director: lAli Georges MD, Phone: [phone] Saint [facility] Hospital B Surface Luybnuj7299-50-02 05:14:00* Test Item Value Reference Range Interpretation Comments Hepatitis B Surface Antigen (test code = 5196-1) Negative Negat mumtaz [facility] LufkinProthrombin Akox1798-37-76 00:09:00* Test Item Value Reference Range Interpretation Comments Prothrombin Time (test code = 5902-2) 15.5 11.9-14.[address] [facility] LufkinProthromb Time International Ratio 2018-05-29 00:09:00* Test Item Value Reference Range Interpretation Comments Prothromb Time International Ratio (test code = 6301-6) 1.17 Oral Anticoagulant Therapy INR Values:1. Low Intensity Therapy 1.5 - 2.02 . Moderate Intensity Therapy 2.0 - 3.03. High Intensity Therapy(1) 2.5 - 3. 54. High Intensity Therapy(2) 3.0 - 4.05. Panic Value INR > 5.0 [facility]ufkinHIV (1&2) Nxiobtsw1942-29-60 17:13:00* Test Item Value Reference Range Interpretation Comments HIV (1&2) Antibody (test code = 24996-3) NON-REACTIVE NONREACTIVE [facility] LufkinHI P24 Oddxnqd3756-24-43 17:13:00* Test Item Value Reference Range Interpretation Comments HIV P24 Antigen (test code = HIV P24 Antigen) NON-REACTIVE NONREACT MUMTAZ [facility] LufkinHI (1&2) Wjboyzgs7052-43-48 17:13:00* Test Item Value Reference Range Interpretation Comments HIV (1&2) Antibody (test code = 61676-5) NON-REACTIVE NONREACTIVE [facility] P24 Tozrvwx4441-49-57 17:13:00* Test Item Value Reference Range Interpretation Comments HIV P24 Antigen (test code = HIV P24 Antigen) NON-REACTIVE NONREACT MUMTAZ [facility] LufkinCT CHEST WW4698-01-02 12:56:00 [facility] [address] [place] [address] Patient Name: INDRA GALVAN MR #: [id number] : 1980 Age/Sex: 37/M Req #: [id number] Adm Physician: KIET DUMAS MD Ordered by: MANDEEP MARIE MD Report #: [id number] Location: MED/SURG3 Room/Bed: [facility] Procedure: 0402-[address]/CT CHEST WO [...] 1308 COPY TO: MANDEEP MARIE MD Amylase Mpxet5994-36-10 09:09:00* Test Item Value Reference Range Interpretation Comments Amylase Level (test code = 1798-8) 24 25-[address] [facility] 09:09:00* Test Item Value Reference Range Interpretation Comments Lipase (test code = 3040-3) 78 [facility] [id number] 09:09:00* Test Item Value Reference Range Interpretation Comments Amylase Level (test code = 1798-8) 24 25-[address] [facility]2019-04-02 09:09:00* Test Item Value Reference Range Interpretation Comments Lipase (test code = 3040-3) [facility] [id number] 06:24:00 [place] [address] Patient Name: INDRA GALVAN MR #: [id number] : 1980 Age/Sex: 37/M Req #: [id number] Adm Physician: KIET DUMAS MD Ordered by: ANAYA BUSTAMANTE MD Report #: [id number] Location: MED/SURG3 Room/Bed: [facility] Procedure: [id number] 010 DX/CHEST 2 VIEWS [...] COPY TO: ANAYA BUSTAMANTE MD CT ABDOMEN/PELVIS [id number] 20:09:00 [place] [address] Patient Name: INDRA GALVAN MR #: [id number] : 1980 Age/Sex: 37/M Req #: [id number] Adm Physician: KIET DUMAS MD Ordered by: ANAYA BUSTAMANTE MD Report #: [id number] Location: [facility] Room/Bed: [place] [address] Procedure: 0401-[address]/CT ABDOMEN/PELVIS W Exam [...] on 05/27/182039 COPY TO: ANAYA BUSTAMANTE MD [id number] 19:50:00 [facility] [address] [place] [address] Patient Name: INDRA GALVAN MR #: [id number] : 1980 Age/Sex: 37/M Req #: [id number] Adm Physician: KIET DUMAS MD Ordered by: ANAYA BUSTAMANTE MD Report #: [id number] Location: [facility] Room/Bed: [place] [address] Procedure: 0401-0 013 US/US GALLBLADDER Exam Date: [...] hyperechoic sludge without shadowing. Wall: 0.4 cm Ike earance: No wall thickening, pericholecystic fluid or [...] TO: ANAYA BUSTAMANTE MD B- Type Natriuretic [id number] 17:56:00* Test Item Value Reference Range Interpretation Comments B-Type Natriuretic Peptide (test code = 06328-5) 221.6 0-[address] [facility]flu[facility] Virus Types A,B Antigen 2018-05-27 17:30:00* Test Item Value Reference Range Interpretation Comments Influenza Virus Types A,B Antigen (test code = 51321-5) NEGATIVE NEGATIVE [facility] Virus Types A,B Antigen 2018-05-27 17:30:00* Test Item Value Reference Range Interpretation Comments Influenza Virus Types A,B Antigen (test code = 38808-7) NEGATIVE NEGATIVE [facility]roponin [id number] 17:28:00* Test Item Value Reference Range Interpretation Comments Troponin I (test code = CGD5197) 0.010 0-0.300 [facility] Acid [id number] 17:20:00* Test Item Value Reference Range Interpretation Comments Lactic Acid Level (test code = Lactic Acid Level) 26.5 4.5- 19.8 Results repeated and called to Alina at 1720 on 05/27/18 by Kalin Almanza. Read matt ck and verified.[facility] [id number] 15:47:00 [place] [address] Patient Name: INDRA GALVAN MR #: [id number] : 1980 Age/Sex: 37/M Req #: [id number] Adm Physician: Ordered by: ANAYA BUSTAMANTE MD Report #: [id number] Location: ER Room/Bed: Procedure: [id number] DX/CHEST 2 VIEWS Exam Date: Exam Time: [...] 3:50 PM Dictated By: SONIA Jeffery MD [id number] Transcribed By: CATERINA on 05/27/18 3675 COPY TO: ANAYA BUSTAMANTE MD
[2019-11-26] VITALS (7 sets, daily range): BP systolic 107–128; BP diastolic 43–87
--- NOTE | 2019-11-26 02:00 | NUR ---
RECEIVED PATIENT FROM ER IN STABLE CONDITION, NO SIGNS OF DISTRESS NOTED. NASAL CANNULA IS INTACT AND FLOWING, RUNNING AT 2 LITERS, PATIENT VOICES NO PAIN AT THIS TIME. PATIENT DUE FOR SECOND UNIT OF BLOOD AND WILL BE STARTED PROMPTLY. BED IS IN LOW POSITION, BOTH SIDE RAILS ARE UP CALL LIGHT IS WITHIN EASY REACH, WILL CONTINUE TO MONITOR.
[2019-11-26] MEDS ORDERED: SODIUM CHLORIDE 0.9% 250ML 250 ML ONE (02:35)
--- NOTE | 2019-11-26 03:09 | NUR ---
SECOND UNIT OF BLOOD HAS STARTED, NO SIGNS OF DISTRESS NOTED, VITALS ARE STABLE. WILL CONTINUE TO MONITOR.
--- NOTE | 2019-11-26 06:00 | NUR ---
PATIENT FINISHED WITH BLOOD TRANSFUSION, NO SIGNS OF DISTRESS NOTED. VITALS ARE STABLE, WILL CONTINUE TO MONITOR.
--- NOTE | 2019-11-26 06:31 | NUR ---
H&P cc: fatigue and abnormal labs HPI: 39yoM, recently d/c after blood tranfusions, now with worsening anemia again. Denies melena/hematochezia. Admitted for tranfusions. Plans for liver transplant TABATHA. PMH: alcoholic cirrhosis, GIB, ESRD on HD, HTN, Alcoholism, alcoholic pancreatitis, splenomegaly, thromboytopenia, jaundice, portal HTN, Severe anemia s/p blood transfusions, Hyperbilirubinemia- due to cirrhosis, GIB, Hypovolemic Shock, Clostridium difficle, Ileus, Portal gastropathy, Esophageal varices, Ascites s/p paracentesis SHx: HD access, Allergies; see emr FH/SH: alcoholism, meds; see MAR ROS; no f/c/s/ROBERSON/cp/sob/skin rash/dizziness/vision changes/ROBERSON/confusion/leg pain/focal limb weakness v/s revd PE tired appearing ICTERIC ns1s2 mod bs soft; no e/t skin Yellow a&ox3; murdock flat affect labs/meds A/P: Severe anemia- blood transfusions; PPI BID Thrombocytopenia- use scd; steroids Hypokalemia- replace H/O Hyperbilirubinemia- due to cirrhosis; check LFTs H/O Splenomegaly Alcoholic cirrhosis- f/[place]- consult nephrology Portal HTN- propranolol Orthostatic hypotension- midodrine Prop; scd; ppi dispo: IV ppi; GI consult; cct>35mins JENNYFER PARKER MD, PHD.
[2019-11-26] MEDS ORDERED: HYDROXYZINE HCL 25 MG TAB PO PRN (06:45)
[2019-11-26 07:28] LABS: ALBUMIN 2.1 g/dL (3.5-5.0)
[2019-11-26] MEDS: SUCRALFATE 1 GM TAB PO SCH ×4 (07:30→21:08)
[2019-11-26] MEDS ORDERED: PANTOPRAZOLE SOD 40 MG TABEC PO SCH (07:30)
[2019-11-26 07:39] LABS: BASOPHILS # (AUTO) 0.1 (0.0-0.1); BASOPHILS % 0.3 % (0.0-1.0); EOSINOPHILS # (AUTO) 0.5 (0.0-0.4); EOSINOPHILS % 3.1 % (0.0-6.0); LYMPHOCYTES # (AUTO) 1.2 (1.0-3.2); LYMPHOCYTES % 7.6 % (18.0-39.1); MEAN CORPUSCULAR HEMOGLOBIN 35.6 pg (28-32); MEAN CORPUSCULAR HGB CONC 32.2 g/dL (31-35); MEAN CORPUSCULAR VOLUME 110.6 fL (81-99); MONOCYTES % 12.4 % (4.4-11.3); NEUTROPHILS % 75.5 % (38.7-80.0); PLATELET COUNT 62 x10e3/uL (140-360); RED BLOOD COUNT 1.32 x10e6/uL (4.3-5.7); RED CELL DISTRIBUTION WIDTH 20.3 % (11.7-14.4)
[2019-11-26 07:49] LABS: HEMOGLOBIN 4.7 g/dL (14.0-18.0)
[2019-11-26 07:50] LABS: HEMATOCRIT 14.6 % (38.2-49.6)
[2019-11-26 07:53] LABS: ANION GAP 13.1 mmol/L (8-16); CALCIUM 7.4 mg/dL (8.4-10.2); CREATININE, SERUM 3.06 mg/dL (0.72-1.25); POTASSIUM 3.1 mmol/L (3.5-5.1)
--- NOTE | 2019-11-26 08:15 | NUR ---
Dr. Kay notified of hemoglobin level 4.7. Orders received to consult hematology.
[2019-11-26 08:19] LABS: BILIRUBIN,DIRECT 18.7 mg/dL (0.0-0.5)
--- NOTE | 2019-11-26 08:30 | NUR ---
Notified Dr. Mcghee of hemodialysis patient and hemoglobin level. Per Dr. Mcghee give 3 units of blood ALL with stat dialysis
--- NOTE | 2019-11-26 08:30 | NUR ---
Jammie notified of STAT dialysis order and blood transfusion
[2019-11-26] MEDS ORDERED: SODIUM CHLORIDE 0.9% 250ML 250 ML IV ONE ×2 (08:50→09:20)
[2019-11-26] MEDS: PROPRANOLOL HCL 10 MG TAB PO SCH ×2 (09:00→17:46)
[2019-11-26] MEDS: PANTOPRAZOLE SOD 40 MG TABEC PO SCH ×2 (09:00→17:46)
[2019-11-26] MEDS: LACTULOSE SYRUP 20 GM/30 ML UDC PO SCH ×3 (09:00→21:00)
[2019-11-26] MEDS: SODIUM BICARBONATE 650 MG TAB PO SCH ×2 (09:00→17:46)
[2019-11-26] MEDS: RIFAXIMIN 550 MG TABLET PO SCH ×2 (09:00→17:46)
[2019-11-26] MEDS ORDERED: PREDNISONE 20 MG TAB PO SCH (09:00)
[2019-11-26 09:03] LABS: RETICULOCYTE % 3.1 % (0.8-2.2)
[2019-11-26] MEDS: MIDODRINE HCL 5 MG TABLET PO SCH ×3 (09:18→17:46)
[2019-11-26 09:29] LABS: IRON 83 ug/dL (65-175); LACTATE DEHYDROGENASE 155 IU/L (125-220); TRANSFERRIN < 70 mg/dL (174-364)
[2019-11-26 09:34] LABS: BURR CELLS SLIGHT
[2019-11-26 09:35] LABS: POLYCHROMASIA FEW
[2019-11-26 09:37] LABS: ACANTHOCYTES FEW
[2019-11-26 09:38] LABS: PLATELET ESTIMATE MODERATELY DECREASED; PLATELET MORPHOLOGY COMMENT NORMAL; RBC MORPHOLOGY COMMENT ABNORMAL; SCHISTOCYTES FEW; TARGET CELLS FEW
[2019-11-26] MEDS ORDERED: SODIUM CHLORIDE 0.9% 1000ML 2,000 ML IV PRN (12:15)
[2019-11-26] MEDS ORDERED: HEPARIN SOD (PORCINE) 1000 UNIT/ML SDV IV PRN (12:15)
--- NOTE | 2019-11-26 12:40 | NUR ---
Dialysis nurse reported 3.5L removed , also 3 units of PRBC's infused with dialysis
[2019-11-26] MEDS: FOLIC ACID 1 MG TAB PO SCH (13:20)
[2019-11-26] MEDS: METHYLPREDNISOLONE SOD SUCC 125 MG/2ML VIAL IV SCH ×2 (13:20→21:07)
[2019-11-26 14:38] LABS: BASOPHILS # (AUTO) 0.1 (0.0-0.1); BASOPHILS % 0.7 % (0.0-1.0); EOSINOPHILS # (AUTO) 0.5 (0.0-0.4); EOSINOPHILS % 3.9 % (0.0-6.0); HEMATOCRIT 24.7 % (38.2-49.6); HEMOGLOBIN 8.7 g/dL (14.0-18.0); LYMPHOCYTES # (AUTO) 0.7 (1.0-3.2); LYMPHOCYTES % 5.2 % (18.0-39.1); MEAN CORPUSCULAR HEMOGLOBIN 32.1 pg (28-32); MEAN CORPUSCULAR HGB CONC 35.2 g/dL (31-35); MEAN CORPUSCULAR VOLUME 91.1 fL (81-99); MONOCYTES # (AUTO) 1.7 (0.2-0.8); MONOCYTES % 12.1 % (4.4-11.3); NEUTROPHILS # (AUTO) 10.5 (2.1-6.9); NEUTROPHILS % 76.5 % (38.7-80.0); RED BLOOD COUNT 2.71 x10e6/uL (4.3-5.7); RED CELL DISTRIBUTION WIDTH 18.7 % (11.7-14.4)
[2019-11-26 14:44] LABS: PLATELET COUNT 32 x10e3/uL (140-360)
[2019-11-26] MEDS ORDERED: PHYTONADIONE 10 MG/ML AMP SQ SCH (16:00)
--- NOTE | 2019-11-26 16:22 | Consultation ---
DATE OF CONSULTATION: 11/26/2019 HISTORY OF PRESENT ILLNESS: Mr. Indra Galvan is known to me, 39-year-old gentleman, underlying history of liver cirrhosis, end-stage liver disease, conjugated bilirubinemia, chronic thrombocytopenia, end-stage renal disease, recent paracentesis 2 weeks ago, recurrent hospital admissions, followed by liver transplant team came in with increased sleepiness and tiredness. Found to have a hemoglobin of 4.4, given 2 units of packed RBC last night. No change in hemoglobin 4.5. Plan to give 3 units of packed RBCs on dialysis. He is awake, alert, and oriented x3. No apparent distress. Denies any black stools, hematemesis, or melena. Total bilirubin is 27 with predominantly conjugated bilirubinemia. Direct bilirubin is 18.7. His ferritin is 2887, potassium is 3.1, and creatinine is 3.0. LDH less than 155. Platelets are 62. Coags show an INR of 1.65. Currently lying supine. Denies shortness of breath, nausea, or vomiting. ALLERGIES: NO APPARENT DRUG ALLERGIES. MEDICATIONS: On folic acid 1 mg daily, Lasix 40 b.i.d., methylprednisolone 60 q.12, and midodrine 5 mg p.o. t.i.d. He is on propranolol 10 mg b.i.d., Xifaxan 550 b.i.d., sodium bicarbonate tablets, Carafate, and trazodone 50 mg at bedtime. SOCIAL HISTORY: Does not smoke or drink. FAMILY HISTORY: Significant for diabetes. PHYSICAL EXAMINATION: GENERAL: Awake, alert, and oriented x3. No apparent distress. VITAL SIGNS: Blood pressure of 109/46, pulse rate 77, afebrile. HEAD AND NECK: Cornea clear. Conjunctival icterus. Skin icteric. Neck veins flat. LUNGS: Occasional rales at bases. HEART: S1 and S2 audible. ABDOMEN: Distended, soft, and nontender. No apparent visceromegaly. Flanks full. EXTREMITIES: Lower extremity, no edema. IMPRESSION AND PLAN: Anemia, refractory differential diagnosis, doubt hemolysis, most likely gastrointestinal, rule out retroperitoneal bleed, has mild coagulopathy. INR is 1.67. I will start vitamin K 10 mg subcutaneous x3 doses. Dialysis to be arranged. We will obtain CT abdomen and pelvis without contrast to rule out retroperitoneal bleed. GI consult. Discussed with Dr. Sp Sam and Dr. Bob Kay. MD SUMAN Miranda/SINDI /[id number]
--- NOTE | 2019-11-26 16:29 | NUR ---
Alejandrina Keating NP for Dr. Lane was notified of platelet count 32. Orders received
--- NOTE | 2019-11-26 16:52 | Diagnostic Imaging Report ---
EXAM: CT Abdomen and Pelvis WITHOUT intravenous contrast INDICATION: Anemia, jaundice COMPARISON: CT abdomen and pelvis of 11/01/2019 TECHNIQUE: Abdomen and pelvis were scanned utilizing a multidetector helical scanner from the lung base to the pubic symphysis without administration of IV contrast. Coronal and sagittal reformations were obtained. IV CONTRAST: None ORAL CONTRAST: Water COMPLICATIONS: None RADIATION DOSE: Total DLP: 659 mGy*cm Dose modulation, iterative reconstruction, and/or weight based adjustment of the mA/kV was utilized to reduce the radiation dose to as low as reasonably achievable. FINDINGS: LOWER THORAX: Bilateral lower lobe dependent subsegmental atelectasis. Small left and trace right pleural effusions. HEPATOBILIARY: Hepatic cirrhosis. No focal liver lesion. Cholelithiasis without CT evidence of cholecystitis. SPLEEN: Splenomegaly to 16 cm. PANCREAS: No focal masses or ductal dilatation. ADRENALS: No adrenal nodules. KIDNEYS/URETERS: No hydronephrosis, stones, or solid mass lesions. PELVIC ORGANS/BLADDER: Unremarkable. PERITONEUM / RETROPERITONEUM: Large volume ascites in the abdomen and pelvis. No free air. LYMPH NODES: No lymphadenopathy. VESSELS: Unremarkable. GI TRACT: Diverticulosis without CT evidence of diverticulitis. No abnormal bowel thickening. No bowel obstruction. BONES AND SOFT TISSUES: No acute osseous injury. No suspicious lytic or blastic lesions. Focal degenerative changes at the superior endplate of T10. IMPRESSION: No evidence of retroperitoneal hematoma. Hepatic cirrhosis and sequela of portal hypertension including large volume ascites in the abdomen and pelvis and splenomegaly to [address] evidence of cholecystitis. Diverticulosis without CT evidence of diverticulitis. Small left and trace right pleural effusions. Bibasilar dependent subsegmental atelectasis. Signed by: Srinivasan Myers MD on 11/26/2019 4:49 PM
[2019-11-26] MEDS: FUROSEMIDE 40 MG TAB PO SCH (17:46)
[2019-11-26 18:24] LABS: INR 1.54; PROTHROMBIN TIME 19.2 seconds (11.9-14.5)
[2019-11-26] MEDS ORDERED: TRAZODONE HCL 50 MG TAB PO SCH (21:00)
[2019-11-27 00:03] VITALS: BP 123/58
--- NOTE | 2019-11-27 03:16 | NUR ---
Dr João Sam came to talk to patient about plan of care. new order noted.
[2019-11-27 05:30] VITALS: BP 106/48
[2019-11-27 05:32] LABS: BASOPHILS % 0.1 % (0.0-1.0); EOSINOPHILS % 0.1 % (0.0-6.0); HEMATOCRIT 26.4 % (38.2-49.6); HEMOGLOBIN 9.4 g/dL (14.0-18.0); LYMPHOCYTES # (AUTO) 0.6 (1.0-3.2); LYMPHOCYTES % 3.9 % (18.0-39.1); MEAN CORPUSCULAR HEMOGLOBIN 32.1 pg (28-32); MEAN CORPUSCULAR HGB CONC 35.6 g/dL (31-35); MEAN CORPUSCULAR VOLUME 90.1 fL (81-99); MONOCYTES # (AUTO) 0.8 (0.2-0.8); MONOCYTES % 5.1 % (4.4-11.3); NEUTROPHILS # (AUTO) 14.4 (2.1-6.9); NEUTROPHILS % 89.7 % (38.7-80.0); RED BLOOD COUNT 2.93 x10e6/uL (4.3-5.7); RED CELL DISTRIBUTION WIDTH 18.9 % (11.7-14.4)
[2019-11-27] MEDS: FUROSEMIDE 40 MG TAB PO SCH (05:48)
[2019-11-27 05:59] LABS: PLATELET COUNT 36 x10e3/uL (140-360)
--- NOTE | 2019-11-27 06:29 | NUR ---
IM- progress note O/N see below ROS; no f/c/s/ROBERSON/cp/sob/skin rash/dizziness/vision changes/ROBERSON/confusion/leg pain/focal limb weakness v/s revd PE tired appearing ICTERIC ns1s2 mod bs soft; no e/t skin Yellow a&ox3; murdock flat affect labs/meds A/P: Severe anemia- blood transfusions; PPI BID Thrombocytopenia- use scd; steroids Hypokalemia- replace H/O Hyperbilirubinemia- due to cirrhosis; check LFTs H/O Splenomegaly Alcoholic cirrhosis- f/[place]- consult nephrology Portal HTN- propranolol Orthostatic hypotension- midodrine Prop; scd; ppi dispo: IV ppi; GI consult; cct>35mins 10-1 stool occult blood negative; CT negative for retroperitoneal bleed; Hb better after 5 units PRBC; Also worsened thrombocytopenia; Does have marked splenomegaly. f/u Hematology recs. JENNYFER PARKER MD, PHD.
[2019-11-27 07:25] VITALS: BP 99/49
[2019-11-27] MEDS: LACTULOSE SYRUP 20 GM/30 ML UDC PO SCH (09:00)
[2019-11-27] MEDS: SUCRALFATE 1 GM TAB PO SCH ×2 (09:12→11:38)
[2019-11-27] MEDS: PANTOPRAZOLE SOD 40 MG TABEC PO SCH (09:12)
[2019-11-27] MEDS: MIDODRINE HCL 5 MG TABLET PO SCH ×2 (09:12→11:39)
[2019-11-27] MEDS: SODIUM BICARBONATE 650 MG TAB PO SCH (09:12)
[2019-11-27] MEDS: RIFAXIMIN 550 MG TABLET PO SCH (09:12)
[2019-11-27] MEDS: PROPRANOLOL HCL 10 MG TAB PO SCH (09:12)
[2019-11-27] MEDS: FOLIC ACID 1 MG TAB PO SCH (09:12)
[2019-11-27] MEDS: METHYLPREDNISOLONE SOD SUCC 125 MG/2ML VIAL IV SCH (10:33)
[2019-11-27 10:49] LABS: LYMPHOCYTES % (MANUAL) 3 % (19-48); MONOCYTES % (MANUAL) 2 % (3.4-9.0); NEUTROPHILS % (MANUAL) 95 % (40-74)
[2019-11-27 10:50] LABS: ACANTHOCYTES FEW; BURR CELLS SLIGHT; TEAR DROP CELLS FEW
[2019-11-27 10:51] LABS: HELMET CELLS RARE
[2019-11-27 10:53] LABS: PLATELET ESTIMATE MARKEDLY DECREASED; PLATELET MORPHOLOGY COMMENT NORMAL; RBC MORPHOLOGY COMMENT ABNORMAL
--- NOTE | 2019-11-27 11:00 | NUR ---
Per Dr. Mcghee , patent can dc home from his standpoint
[2019-11-27 11:06] VITALS: BP 126/59
--- NOTE | 2019-11-27 11:50 | NUR ---
Patient refusing GI bleed scan, wants to go home. Dr. Kay wants clearance from hematology first. Dr. Lane was paged, awaiting call back.
--- NOTE | 2019-11-27 12:30 | NUR ---
Alejandrina for Dr. Lane is rounding and said it is OK for patient to dc home. Dr. Kay was notified, he said it is OK to cancel bleed scan and notify Dr Laine Sam and f/u next Sunday
--- NOTE | 2019-11-27 14:00 | NUR ---
Discharge instructions given to the patient, he verbalized understanding. IV to the left ac was removed
--- NOTE | 2019-12-05 08:27 | NUR ---
D/C summary Principal dx: Severe anemia- blood transfusions; PPI BID Thrombocytopenia- use scd; steroids Hypokalemia- replace Secondary Dx: H/O Hyperbilirubinemia- due to cirrhosis; check LFTs H/O Splenomegaly Alcoholic cirrhosis- f/u [place] specialist [place]- consult nephrology Portal HTN- propranolol Orthostatic hypotension- midodrine Prop; scd; ppi dispo: IV ppi; GI consult; cct>35mins 10-1 stool occult blood negative; CT negative for retroperitoneal bleed; Hb better after 5 units PRBC; Also worsened thrombocytopenia; Does have marked splenomegaly. f/u Hematology recs. f/u pcp 2 days and hematology 1 week and transplant team in few days; d/c home stable d/c>35mins JENNYFER PARKER MD, PHD.
== END 2019-11-27 14:00 | disposition home or self-care (01) | DRG 811 ==
LOC: ER 20:48 → ERHOLD 23:19 → MED/SURG2 11-26 00:51 → OBSVTOIN 11-26 11:21
PROVIDERS: ADMIT Internal Medicine; ATTEND Internal Medicine
PROC: 30233N1 Transfusion of Nonautologous Red Blood Cells into Peripheral Vein, Percutaneous Approach (ICD-10-PCS; principal; 2019-11-25)
DX: D62 Acute posthemorrhagic anemia (principal); N18.6 End stage renal disease; I12.0 Hypertensive chronic kidney disease with stage 5 chronic kidney disease or end stage renal disease; K76.6 Portal hypertension; D69.6 Thrombocytopenia, unspecified; E87.6 Hypokalemia; K70.31 Alcoholic cirrhosis of liver with ascites; F10.20 Alcohol dependence, uncomplicated; I95.1 Orthostatic hypotension; Z11.59 Encounter for screening for other viral diseases; K31.89 Other diseases of stomach and duodenum
CPT/HCPCS: 36415; 71045; 74176; 80048; 80076; 82270; 82607; 82728; 82746; 83010; 83540; 83615; 84466; 85025; 85045; 85379; 85384; 85610; 85651; 85730; 86705; 86706; 86850; 86900; 86920; 87340; 93005; 93970; 99284; G0378; J1644; J2930; J3430; J7050; P9016

== ENCOUNTER 2019-12-07 22:26 | Inpatient (IN) | payer BC ==
[~2019-12-07] VITALS: Ht 210.8 cm; Wt 89.8 kg
[~2019-12-07 22:26] MED LIST changes: -FUROSEMIDE80 MG; +FUROSEMIDE80 MG PO
--- NOTE | 2019-12-07 22:58 | Emergency Department Note ---
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; PT ALSO STATES HE MAY BE DEHYDRATED AND HGB LOW; PT ALSO REPORTS LOWER ABD PAIN; PT STATES HE FELL EARLIER TODAY; REPORTS HE HIT HIS HEAD; DENIES LOC OR TAKING BLOOD THINNERS; SMALL ABRASION NOTED TO THIRD DIGIT KNUCKLE; NAD NOTED AT THIS TIME; PT JAUNDICE IN COLOR; .PT HAS REQUIRED MULTIPLE BLOOD TRANSFUSIONS SECONDARY TO ANEMIA Historian: Patient Arrival Mode: Car Estate Planner Required: No Onset (how long ago): day(s) (4) Location: ALL OVER Quality: WEAKNESS, DIARRHEA Radiation: Reports non-radiation Severity: moderate Duration (how long): day(s) (4) Timing of current episode: constant Progression: worsening Chronicity: recurrent Context: Reports recent illness (PT HAS LIVER FAILURE AND ESRD ON DIALYSIS) Relieving factors: none Exacerbating factors: movement Associated symptoms: Reports weakness, Reports other (DIARRHEA) Treatments prior to arrival: none Past Medical/Family History Physician Review I have reviewed the patient's past medical and family history. Any updates have been documented here. Past Medical History Recent Fever: No Clinical Suspicion of Infectio: No New/Unexplained Change in Ment: No Past Medical History: Liver Disease, ESRD, Hemodyalisis, Anemia Other Medical History: ETOH ABUSE RIB FRACTURE PNEUMONIA DIALYSIS M/W/F Past Surgical History: None Other Surgery: DIALYSIS CATH TO RT CHEST Social History Smoking Cessation: Never Smoker Alcohol Use: None Any Illegal Drug Use: No Family History Family history of heart diseas: No Other Last Tetanus: UTD Review of Systems Review of Systems Constitutional: Reports weakness EENTM: Reports no symptoms Cardiovascular: Reports no symptoms Respiratory: Reports no symptoms Gastrointestinal: Reports diarrhea Genitourinary: Reports no symptoms Musculoskeletal: Reports no symptoms Integumentary: Reports no symptoms Neurological: Reports weakness Psychological: Reports no symptoms Endocrine: Reports no symptoms Hematological/Lymphatic: Reports no symptoms Physical Exam Related Data Allergies: Coded Allergies: No Known Allergies (Unverified , 10/16/18) Triage Vital Signs Vital Signs Date Time Temp Pulse Resp B/P (MAP) Pulse Ox O2 Delivery O2 Flow Rate FiO2 12/07/19 22:33 98.5 84 20 107/56 100 Room Air Vital signs reviewed: Yes Physical Exam CONSTITUTIONAL Constitutional: Present well-developed, Present well-nourished, Present ill appearing HENT HENT: Present normocephalic, Present atraumatic, Present oropharynx clear/moist, Present nose normal HENT L/R: Present left ext ear normal, Present right ext ear normal EYES Eyes: Reports PERRL, Reports scleral icterus, Reports other (PALE CONJUNCTIVA) NECK Neck: Present ROM normal PULMONARY Pulmonary: Present effort normal, Present breath sounds normal CARDIOVASCULAR Cardiovascular: Present regular rhythm, Present heart sounds normal, Present capillary refill normal, Present normal rate GASTROINTESTINAL Abdominal: Present soft, Present nontender, Present bowel sounds normal GENITOURINARY Genitourinary: Present exam deferred SKIN Skin: Present warm, Present dry, Present jaundiced MUSCULOSKELETAL Musculoskeletal: Present edema (3+ PITTING EDEMA BILATERAL LOWER EXTREMITIES) NEUROLOGICAL Neurological: Present alert, Present oriented x 3, Present no gross motor or sensory deficits PSYCHOLOGICAL Psychological: Present mood/affect normal, Present judgement normal Results Laboratory Laboratory Laboratory Tests Test 12/07/19 23:38 White Blood Count 22.03 x10e3/uL (4.8-10.8) Red Blood Count 1.96 x10e6/uL (4.3-5.7) Hemoglobin 6.9 g/dL (14.0-18.0) Hematocrit 19.8 % (38.2-49.6) Mean Corpuscular Volume 101.0 fL (81-99) Mean Corpuscular Hemoglobin 35.2 pg (28-32) Mean Corpuscular Hemoglobin Concent 34.8 g/dL (31-35) Red Cell Distribution Width 21.0 % (11.7-14.4) Platelet Count 50 x10e3/uL (140-360) Neutrophils (%) (Auto) 75.8 % (38.7-80.0) Lymphocytes (%) (Auto) 7.7 % (18.0-39.1) Monocytes (%) (Auto) 10.5 % (4.4-11.3) Eosinophils (%) (Auto) 2.8 % (0.0-6.0) Basophils (%) (Auto) 0.6 % (0.0-1.0) Neutrophils # (Auto) 16.7 (2.1-6.9) Lymphocytes # (Auto) 1.7 (1.0-3.2) Monocytes # (Auto) 2.3 (0.2-0.8) Eosinophils # (Auto) 0.6 (0.0-0.4) Basophils # (Auto) 0.1 (0.0-0.1) Absolute Immature Granulocyte (auto 0.57 x10e3/uL (0-0.1) Sodium Level 125 mmol/L (136-145) Potassium Level 3.8 mmol/L (3.5-5.1) Chloride Level 94 mmol/L (98-107) Carbon Dioxide Level 17 mmol/L (22-29) Anion Gap 17.8 mmol/L (8-16) Blood Urea Nitrogen 36 mg/dL (7-26) Creatinine 4.81 mg/dL (0.72-1.25) Estimat Glomerular Filtration Rate 13 ML/MIN (60-) BUN/Creatinine Ratio 7 (6-25) Glucose Level 114 mg/dL (74-118) Calcium Level 7.3 mg/dL (8.4-10.2) Total Bilirubin > 25.0 mg/dL (0.2-1.2) Aspartate Amino Transf (AST/SGOT) 80 IU/L (5-34) Alanine Aminotransferase (ALT/SGPT) 38 IU/L (0-55) Alkaline Phosphatase 85 IU/L (40-150) Creatine Kinase 23 IU/L (30-200) Creatine Kinase MB 0.50 ng/mL (0-5.0) Troponin I 0.003 ng/mL (0-0.300) Total Protein 3.5 g/dL (6.5-8.1) Albumin 1.5 g/dL (3.5-5.0) Globulin 2.0 g/dL (2.3-3.5) Albumin/Globulin Ratio 0.8 (0.8-2.0) Lab results reviewed: Yes Imaging Imaging results reviewed: Yes Impressions Procedure: [id number] CT/CT BRAIN WO Exam Date: Exam Time: REPORT STATUS: Signed Exam: Head CT without contrast History: Trauma, fall, dizziness Comparison studies: None Technique: Axial images were obtained from the skull base to the vertex. Coronal and sagittal images reconstructed from the axial data. Dose modulation, iterative reconstruction, and/or weight based adjustment of the mA/kV was utilized to reduce the radiation dose to as low as reasonably achievable. Radiation dose: Total DLP: 921 mGy*cm. Estimated effective dose: DLP x 0.015 Intravenous contrast: None Findings: Scalp: No abnormalities. Bones: No fractures, blastic or lytic lesions. Brain sulci: Mildly prominent. Ventricles: Mild compensatory dilatation. No hydrocephalus. Extra-axial spaces: Incidental magna cisterna magna. No mass or fluid collection. Parenchyma: No abnormal densities. No masses, hemorrhage, acute or chronic vascular insults. Sellar/suprasellar region: No abnormalities. Craniocervical junction: Patent foramen magnum. No Chiari one malformation. Included paranasal sinuses: Clear. Middle ear cavities and included mastoids: Clear. Incidental findings: Atherosclerotic calcifications in the carotid siphons. IMPRESSION: 1. No acute abnormalities. 2. Mild generalized parenchymal volume loss. Signed by: Dr. Kirt Molina M.D. on 12/08/2019 12:27 AM Dictated By: KIRT MOLINA MD Transcribed By: CATERINA on 12/08/1926 COPY TO: JIMENA CUEVAS MD~ Procedures 12 Lead ECG Interpretation ECG Interpretation : ECG: ECG 1 Estate Planner: Interpreted by ED physician Date: Dec 07, 2019 Time: 22:56 Rhythm: sinus rhythm Rate: normal BPM: 76 QRS axis: normal ST segments normal: Yes T waves normal: Yes Other findings: prolonged QTc interval Clinical Impression: non-specific ECG Assessment & Plan Medical Decision Making MDM PT WITH LIVER FAILURE AND ESRD ON DIALYSIS WITH CHRONIC ANEMIA REQUIRING BLOOD TRANSFUSION WITH WEAKNESS, DIARRHEA AND LOWER ABD PAIN, ALSO FELL EARLIER HI TTING HEAD CBC, CMP, EKG, CARDIAC ENZYMES, EKG, CXR, CT BRAIN ORDERED TO EVAL FOR ANEMIA, MYOCARDIAL INFARCTION, ELECTROLYTE ABNORMALITY, INTRACRANIAL INJURY PT WITH 22K SBC BUT ALWAYS HAS AN ELEVATED WBC, PT IS ON CHRONIC HIGH DOES STEROIDS FOR THROMBOCYTOPENIA I SPOKE WITH DR PARKER, PLACE PT IN OBS, ORDER 1 UNITS PRBC'S TO BE TRANSFUSED WHILE PT IS ON DIALYSIS IN THE AM I SPOKE WITH [facility] FOR DR ENRIQUE, NO RETURN CALL OF TIME OF ADMISSION Assessment & Plan Final Impression: (1) Cirrhosis (2) Anemia (3) Jaundice (4) ESRD (end stage renal disease) (5) Leukocytosis (6) H/O leukocytosis Last Vital Signs Date Time Temp Pulse Resp B/P (MAP) Pulse Ox O2 Delivery O2 Flow Rate FiO2 12/07/19 22:33 98.5 84 20 107/56 100 Room Air Home Meds Active Scripts Vancomycin Hcl (VANCOCIN HCL) 250 Mg Capsule, 500 MG PO Q6HR for 10 Days Prov:JNENYFER PARKER MD 11/06/19 Sodium Bicarbonate (SODIUM BICARBONATE) 650 Mg Tablet, 1300 MG PO BID for 30 Days Prov:JENNYFER PARKER MD 11/06/19 Rifaximin (XIFAXAN) 550 Mg Tablet, 550 MG PO BID for 30 Days Prov:JENNYFER PARKER MD 11/06/19 Lactulose (LACTULOSE) 20 Gm/30 Ml Solution, 20 GM PO TID for 30 Days Prov:JENNYFER PARKER MD 11/06/19 Cholestyramine (CHOLESTYRAMINE LIGHT PACKET) 4 Gm Pack, 4 GM PO Q6H for 10 Days Prov:JENNYFER PARKER MD 11/06/19 Propranolol Hcl (PROPRANOLOL HCL) 10 Mg Tablet, 10 MG PO BID for 30 Days Prov:DEBO MOCK NP 10/21/19 Sucralfate (CARAFATE) 1 Gm Tablet, 1 GM PO ACHS for 30 Days Prov:DEBO MOCK CERTIFIED REGISTERED NURSE PRACTITIONER 10/21/19 Prednisone (PREDNISONE) 20 Mg Tab, 40 MG PO DAILY for 28 Days Prov:DEBO MOCK NP 10/21/19 Pantoprazole Sodium* (PROTONIX) 40 Mg Tablet.dr, 40 MG PO ACB, #30 TAB Prov:DEBO MOCK NP 09/27/19 Reported Medications Tramadol Hcl* (ULTRAM 50MG*) 50 Mg Tab 11/02/19 Furosemide (FUROSEMIDE) 80 Mg Tablet 11/02/19 Hydroxyzine Hcl (HYDROXYZINE HCL) 25 Mg Tablet 11/02/19 Ondansetron Hcl (ONDANSETRON HCL) 4 Mg Tablet, 4 MG 11/02/19 Midodrine Hcl (MIDODRINE HCL) 10 Mg Tablet 09/26/19 Folic Acid (FOLIC ACID) 1 Mg Tablet, 1 MG PO DAILY, #30 TAB 05/27/18 Trazodone Hcl (TRAZODONE HCL) 50 Mg Tablet, 50 MG PO HS, #30 TAB 05/27/18 JIMENA CUEVAS MD Dec 07, 2019 22:58
--- OUTSIDE RECORDS SUMMARY | 2019-12-07 23:09 | XMS REPORT | Clinical Summary ---
Author Author [facility] Organization [facility] Address Unknown Phone Unavailable Care Team Providers Care 911 Emergency Dispatcher Name Role Phone PCP Unavailable Allergies No [...] (>/= 19 yrs) Results Not on fileafter 12/06/2018 Insurance Type Payer Benefit Subscriber ID Effective Phone Address Plan / Dates Group BC/BS BC/BS PPO xxxxxxxxxxxx 2017-P [phone] [id number] [place] [address] Advance Directives Date Inactivated Comments Code Status Date Activated 01/28/2018 3:20 PM Full Code 01/24/2018 10:54 PM
--- OUTSIDE RECORDS SUMMARY | 2019-12-07 23:09 | XMS REPORT | Clinical Summary ---
Author Author PATY Cal[facility] SolutionsSt. Joseph Regional Medical CenteriMusician [facility]SophonoPe[facility] Address Unknown Phone Unavailable Care Team Providers Care Flagstone Layer Name Role Phone Keith Hammond Unavailable Pcp, No PCP Unavailable System, Provider Not In PCP Unavailable Pcp, No PCP Unavailable Allergies Comments [...] tablet by mouth 9 daily. 12/26/2018 Discontinued (Stop Taking at Discharge) lactulose (CHRONULAC) 20 Take 45 mLs 0 [...] total) 9 by mouth daily. 12/26/2018 Discontinued (Stop Taking at Discharge) ipratropium (ATROVENT) Take 2.5 mLs 75 mL 0 0.02 % nebulizer solution (0.5 mg 9 total) by nebulization every 6 (six) hours as needed. 12/26/2018 Discontinued (Stop Taking at Discharge) levoFLOXacin (LEVAQUIN) Inject 50 mLs 0 IVPB 250 mg in dextrose (250 mg 9 5% (D5W) 50 mL total) intravenously daily. 12/26/2018 Discontinued (Stop Taking at Discharge) melatonin 3 mg Tab tablet Take 2 0 10/27 tablets (6 mg 9 total) by mouth every night as needed. 12/07/2018 midodrine (PROAMATINE) 5 Take 1 tablet 0 11/07 MG tablet (5 mg total) 9 by mouth 3 (three) times daily for 30 days. 12/26/2018 Discontinued (Stop Taking at Discharge) octreotide (SANDOSTATIN) Inject 1 mL 0 11/07 100 mcg/mL Soln (100 mcg 9 total) subcutaneousl y 3 (three) times daily. 05/10/2019 Discontinued (Reorder) pantoprazole (PROTONIX) Take 1 tablet 0 40 MG tablet (40 mg total) 9 by mouth daily. 12/26/2018 Discontinued (Stop Taking at Discharge) phytonadione 0.8 mg/mL Take 6.25 mLs 0 01 Soln ORAL solution (5 mg total) 9 by mouth daily. 12/26/2018 Discontinued (Stop Taking at Discharge) thiamine (B-1) 100 mg/mL Inject 1 mL 25 mL 0 0 injection (100 mg 9 total) intravenously daily. 12/26/2018 Discontinued (Stop Taking at Discharge) traZODone (DESYREL) 50 MG Take 50 mg by 0 tablet mouth nightly. 12/26/2018 Discontinued (Reorder) midodrine (PROAMATINE) 10 Take 10 mg by 0 MG tablet mouth 3 (three) times daily. 02/04/2019 Discontinued (Med History: P atient Reported Med no longer taking) UNKNOWNIndications: as needed Pt 0 nausea takes dissolving tablet for nausea, unsure of name . 02/04/2019 Discontinued (Med History: P atient Reported Med no longer taking) UNKNOWN daily Pt 0 states he takes a medication to suppress his alcohol cravings . 12/26/2018 Discontinued (Stop Taking at Discharge) ondansetron (ZOFRAN-ODT) Take 4 mg by 0 4 MG disintegrating mouth every 6 tablet (six) hours as needed for Nausea. 02/04/2019 Discontinued (Reorder) thiamine 100 MG tablet Take 1 tablet [...] for up to 30 days. 05/10/2019 Discontinued (Stop Taking at Discharge) FUROSEMIDE ORAL Take 80 mg by 0 [...] Team Description Date Type Specialty Anastacio Killian 12/01/2019 Documentation Transplant HepatMalina Roldan RN Screening for malignant neoplasm (Primar y Dx); Alcoholic cirrhosis of liver with ascites (HCC) 12/01/2019 Orders Only Transplant Hepatolo Malina Mcpherson RN Follow-up 12/01/2019 Telephone Transplant Hepatolo Michael Bejarano [facility] Social Work 12/01/2019 Telephone Transplant Hepatolo gy Anastacio Killian 11/17/2019 Documentation Transplant Hepatolo gy Anastacio Killian 11/13/2019 Documentation Transplant Hepatolo Malina Mcpherson RN Follow-up 11/07/2019 Telephone Transplant Hepatolo Malina Mcpherson RN Follow-up 11/07/2019 Telephone Transplant Hepatolo Michael Bejarano, [facility] Social Work 11/07/2019 Telephone Transplant Hepatolo Malina Mcpherson RN Follow-up 11/07/2019 Telephone Transplant Hepatolo Malina Mcpherson RN Follow-up 11/06/2019 Telephone Transplant Hepatolo gy Michael Blount, [facility] Social Work 10/17/2019 Telephone Transplant Hepatolo gy Anastacio Killian Appointment 07/28/2019 Telephone Transplant Hepatolo Michael Bejarano [employer] Social Work 07/18/2019 Telephone Transplant Hepatolo Malina Mcpherson RN Follow-up 07/18/2019 Telephone Transplant Hepatolo gy [...] RN 05/27/2019 Abstract Transplant Hepatolo gy Emily Vazquez RN 05/27/2019 Documentation Transplant Bib Dumont RN 05/27/2019 Documentation Transplant Hepatolo gy Erik De Leon MD Inactivated for transplant 05/27/2019 Telephone Hepatology Bib Dumont RN 05/27/2019 Documentation Transplant Hepatolo gy Devyn Lantigua MD 05/23/2019 Hospital Radiology Encounter Devyn Lantigua MD Alcoholic hepatitis with ascites; Fatty liver 05/23/2019 Orders Only Malina Acharya RN 05/23/2019 Abstract Transplant Hepatolo gy Abby Osei MA 05/23/2019 Abstract Transplant Hepatolo gy Abby Osei MA 05/23/2019 Abstract Transplant Hepatolo gy Abby Osei MA 05/23/2019 Abstract Transplant Hepatolo gy Malina Mcmillan RN Screening for cancer (Primary Dx); Awaiting organ transplant status; Alcoholic cirrhosis of liver with ascites (HCC) 05/22/2019 Orders Only Transplant Hepatolo gy Malina Mcmillan, RN Screening for cancer 05/22/2019 Orders Only Transplant Hepatolo jeovany Bib Dumont RN 05/16/2019 Documentation Transplant Hepatolo gy Marissa Mixon Labs Only 05/15/2019 Telephone Transplant Hepatolo gy Marissa Mixon Labs Only 05/15/2019 Telephone Transplant Hepatolo gy Katie Garsia, KATHERINE 05/14/2019 Documentation Transplant Hepatolo gy Katie Garsia, RN 05/14/2019 Documentation Transplant Hepatolo gy Bib [...] Transplant Robbie New MD PERICARDIOCENTESIS 05/07/2019 Surgery Vasquez Wilkes MD Gaut, Megan McCormick, MD 05/06/2019 Anesthesia Gastroenterology Zainab Peralta MD UPPER ENDOSCOPY 05/06/2019 Surgery Gastroenterology Radha Mera, KATHERINE Appointment 05/06/2019 Telephone Transplant 05/05/2019 Travel Marissa Mixon Appointment 05/05/2019 Telephone Transplant Hepatolo gy Marissa Mixon Appointment 05/05/2019 Telephone Transplant Hepatolo gy 05/05/2019 [...] labs are due.) 05/02/2019 Telephone Transplant HepatBib Anderson RN Alcoholic hepatitis with ascites (Primar y Dx); Fatty liver 04/08/2019 Orders Only Transplant Bib Roger RN 04/08/2019 Documentation Transplant Hepatolo gy Devyn Lantigua MD Alcoholic hepatitis with ascites; ESRD on hemodialysis (HCC) 04/07/2019 Orders Only Transplant Hepatolo Bib Bashir RN 04/07/2019 Documentation Transplant Hepatolo gy Dorothy Boss 04/07/2019 Documentation Transplant Bib Dumont RN 04/04/2019 Documentation Transplant Hepatolo gy Bib Dumont RN Alcoholic hepatitis with ascites (Primar y Dx); ESRD on hemodialysis (HCC) 04/04/2019 Orders Only Transplant Hepatolo Radha Stover RN 04/04/2019 Documentation Transplant Servando Romano RN 04/04/2019 Documentation Transplant Servando Romano RN Committee Review 04/02/2019 Telephone Transplant Marissa Mixon Appointment (Spoke with pt appt date upd ated, itinerary mailed to pt.) 04/01/2019 Telephone Transplant Servando Handley, KATHERINE 03/18/2019 Documentation Transplant Devyn Lantigua MD Dunn, [...] 02/07/2019 Documentation Transplant Gena Gordon MD Mindikoglu, Shonda Sanchez MD MPH Alcoholic hepatitis with ascites (Primar [...] Acute blood loss anemia 02/03/2019 Orders Only Gena Cazares MD ESRD (end stage renal disease) (HCC); Pre-transplant evaluation for end stage renal disease 02/03/2019 [facility] Radiology Encounter System, Provider Not In [...] Martha Oquendo RN 01/17/2019 Orders Only Transplant Hepatolo gy Martha Oquendo, KATHERINE Direct admission for anemia 01/17/2019 Telephone Transplant Hepatolo gy Gena Maldonado MD Pandya, Matty Crooks MD Pre-transplant evaluation for end stage renal disease (Primary Dx) 01/16/2019 Evaluation Transplant Gena Maldonado MD ESRD (end stage renal disease) (HCC); Pre-transplant evaluation for end stage renal disease 01/16/2019 Orders Only Transplant Hepatolo gy Grzegorz, MD Darvin Sethi Parxann Marie, PA Pruritus [...] f/ u appt w/pt.) 01/06/2019 Telephone Transplant Hepatolo gy 01/04/2019 Travel Pratik Valdez MD Daniel, Jamuna [...] Itinerary mailed to pt.) 01/02/2019 Telephone Transplant Hepatjuanito thayer Polly Rojas Appointment 01/01/2019 Telephone Transplant Servando Romano RN ESRD (end stage renal disease) (HCC) (Pr imary Dx); Pre-transplant evaluation for end stage renal disease 12/27/2018 Orders Only Transplant Hemalatha Alfredo 12/26/2018 Abstract Transplant Víctor Dumont MD Siddique, MD Evelina Godoy Roy, MD Omranian, Ali, MD Acute blood [...] 33.9 in adult; Portal hypertension (HCC) 12/21/2018 [facility] General Internal Vt dicine - Encounter 12/26/2018 12/21/2018 Orders Only General Internal Vt dicine 12/21/2018 Travel after 12/06/2018 Family History Medical History Relation Name Comments No Known Problem Brother Hypertension Father Hypertension Mother No Known Problem Son Relation Name Status Comments Brother Alive Father Mother Alive Son Alive Social History Date Tobacco Use Types Packs/Day Years Used Never Smoker Smokeless Tobacco: Never Used Drinks/Week oz/Week Comments Alcohol Use quit in 09/2018 No Sex Assigned at Date Recorded Not on file Last Filed Vital Signs Reading Time Taken Comments Vital Sign 115/69 05/13/2019 10:59 AM CDT Blood Pressure 90 05/13/2019 10:59 AM CDT Pulse 36.9 C (98.5 F) 05/13/2019 10:59 AM CDT Temperature 18 05/13/2019 10:59 AM CDT Respiratory Rate 100% 05/13/2019 10:59 AM CDT Oxygen Saturation 21% 05/10/2019 8:10 AM CDT Inhaled Oxygen Concentration 86.2 kg (190 lb 1.6 oz) 05/13/2019 10:59 AM CDT Weight 180.3 cm (5' 11") 05/13/2019 10:59 AM CDT Height 26.51 05/13/2019 10:59 AM CDT Body Mass Index Plan of Treatment Care Team Description Date Type Specialty Devyn Lantigua MD [address] [place] [address] [phone] 12/16/2019 Follow-Up Transplant Hepatolo gy Devyn Lantigua MD [address] [place] [address] [phone] 12/16/2019 Appointment Radiology Health Maintenance Due Date Last Done Comments INFLUENZA VACCINE (#1) 2019 LIPID PANEL 06/18/2021 [...] 05/07/2019 REPORT - SCAN 9:12 PM CDT BODY FLUID CULTURE + GRAM STAT 05/07/2019 STAIN 7:20 PM CDT CYTOLOGY STAT 05/07/2019 7:20 PM CDT 2D ECHO W/ DOPPLER STAT 05/07/2019 (CW/PW/COLOR) 6:32 PM CDT PERICARDIOCENTESIS 05/07/2019 Coronary artery di sease 6:18 PM CDT with angina pectoris, unspecified vessel or lesion type, unspecified whether [facility] [place] or transplanted heart (HCC) TRANSFUSION SERVICE 05/07/2019 REPORT - SCAN 5:52 [...] 1:06 PM CDT UPPER ENDOSCOPY 05/06/2019 Gastrointestinal 10:56 AM CDT hemorrhage, unspecified gastrointestinal hemorrhage type [...] ms QTC Calculatio n(Bazett) 490 ms R Panola 151 degrees T Panola -88 degrees Undetermi lara rhythm Left posterior [...] ms QTC Calculatio n(Bazett) 262 ms R Panola 153 degrees T Panola -84 degrees Sinus tachycardi a with 1st [...] ms QTC Calculatio n(Bazett) 511 ms P Panola 254 degrees R Panola 46 degrees T Panola -73 degrees Atrial flutter with variable A-V [...] ms QTC Calculatio n(Bazett) 0 ms R Panola 0 degrees T Panola 0 degrees No QRS complexes found, no [...] ms QTC Calculatio n(Bazett) 557 ms P Panola 45 degrees R Panola 33 degrees T Panola 29 degrees Normal sinus rhythm Nonspecifi c [...] Alcohol ic hepatitis with DIFFERENTIAL 9:34 AM SECTION REPAIRER ascites ESRD on hemodialysis (HCC) PROTHROMBIN TIME/INR Routine 04/07/2019 Alcoholic hepatitis with 9:34 AM SECTION REPAIRER ascites ESRD on hemodialysis (HCC) HEPATIC FUNCTION PANEL Routine 04/07/2019 Alcohol ic hepatitis with 9:34 AM SECTION REPAIRER ascites ESRD on hemodialysis (HCC) CBC W/PLT COUNT & AUTO Routine 04/07/2019 Alcohol ic hepatitis with DIFFERENTIAL 9:34 AM SECTION REPAIRER ascites ESRD on hemodialysis (HCC) BASIC METABOLIC PANEL (7) Routine 04/07/2019 Alco holic hepatitis with 9:34 AM SECTION REPAIRER ascites ESRD on hemodialysis (HCC) CBC W/PLT COUNT & AUTO Routine 03/14/2019 Alcohol ic cirrhosis of DIFFERENTIAL 10:32 AM SECTION REPAIRER liver without ascit es (HCC) PROTHROMBIN TIME/INR Routine 03/14/2019 Alcoholic cirrhosis of 10:32 AM SECTION REPAIRER liver without ascites (HCC) CBC W/PLT COUNT & AUTO Routine 03/14/2019 Alcohol ic cirrhosis of DIFFERENTIAL 10:32 AM SECTION REPAIRER liver without ascit es (HCC) HEPATIC FUNCTION PANEL Routine 03/14/2019 Alcohol ic cirrhosis of 10:32 AM SECTION REPAIRER liver without ascites (HCC) BASIC METABOLIC PANEL (7) Routine 03/14/2019 Alco holic cirrhosis of 10:32 AM SECTION REPAIRER liver without ascites (HCC) CBC W/PLT COUNT & AUTO Routine 03/04/2019 Iron de ficiency anemia, DIFFERENTIAL 10:00 AM SECTION REPAIRER unspecified iron deficiency anemia type COMPREHENSIVE METABOLIC Routine 03/04/2019 Alcoho lic cirrhosis of PANEL 10:00 AM SECTION REPAIRER liver with ascites (HCC) CBC W/PLT COUNT & AUTO Routine 03/04/2019 Iron de ficiency anemia, DIFFERENTIAL 10:00 AM SECTION REPAIRER unspecified iron deficiency anemia type BILIRUBIN, DIRECT Routine 03/04/2019 Alcoholic ci rrhosis of 10:00 AM SECTION REPAIRER liver with ascites (HCC) PROTHROMBIN TIME/INR Routine 03/04/2019 Alcoholic cirrhosis of 9:55 AM SECTION REPAIRER liver with ascites (HCC) COMPREHENSIVE METABOLIC Routine 02/03/2019 Fatty liver PANEL 10:13 AM SECTION REPAIRER BILIRUBIN, DIRECT Routine 02/03/2019 Fatty liver 10:13 AM SECTION REPAIRER CBC W/PLT COUNT & AUTO Routine 02/03/2019 ESRD (e nd stage renal DIFFERENTIAL 10:12 AM SECTION REPAIRER disease) (HCC) Acute blood loss anemia PROTHROMBIN TIME/INR Routine 02/03/2019 Fatty maru er 10:12 AM SECTION REPAIRER CBC W/PLT COUNT & AUTO Routine 02/03/2019 ESRD (e nd stage renal DIFFERENTIAL 10:12 AM SECTION REPAIRER disease) (HCC) Acute blood loss anemia US PELVIS WITH DOPPLER Routine 02/03/2019 ESRD (e nd stage renal 9:35 AM SECTION REPAIRER disease) (HCC) Pre-transplant evaluation for end stage renal disease RHYTHM STRIP - SCAN 01/21/2019 11:42 AM SECTION REPAIRER RHYTHM STRIP - SCAN 01/20/2019 4:02 PM SECTION REPAIRER RHYTHM STRIP - SCAN 01/20/2019 4:02 PM SECTION REPAIRER TRANSFUSION SERVICE 01/19/2019 REPORT - SCAN 6:00 PM SECTION REPAIRER PREPARE LEUKO-REDUCED RBC Routine 01/18/2019 11:55 PM SECTION REPAIRER TRANSFUSION SERVICE 01/18/2019 REPORT - SCAN 6:03 PM SECTION REPAIRER VITAMIN B12 AND FOLATE Routine 01/18/2019 5:47 PM SECTION REPAIRER HAPTOGLOBIN Routine 01/18/2019 5:47 PM SECTION REPAIRER LACTATE DEHYDROGENASE Routine 01/18/2019 (LDH) 5:47 PM SECTION REPAIRER IRON, TIBC, % SAT. Routine 01/18/2019 (WITHOUT FERRITIN) 5:47 PM SECTION REPAIRER FERRITIN Routine 01/18/2019 5:47 PM SECTION REPAIRER ULTRAFILTRATION HD CRRT Routine 01/18/2019 3:13 PM SECTION REPAIRER HEMOGLOBIN AND HEMATOCRIT STAT 01/18/2019 11:17 AM SECTION REPAIRER CBC (HEMOGRAM ONLY) Routine 01/18/2019 2:51 AM SECTION REPAIRER TRANSFUSE LEUKO-REDUCED Routine 01/17/2019 RED BLOOD CELLS 11:33 PM SECTION REPAIRER TRANSFUSE LEUKO-REDUCED Routine 01/17/2019 RED BLOOD CELLS 10:39 PM SECTION REPAIRER HEMODIALYSIS INPATIENT Routine 01/17/2019 9:29 PM SECTION REPAIRER TYPE AND SCREEN, Routine 01/17/2019 AUTOMATED 3:35 PM SECTION REPAIRER CBC W/PLT COUNT & AUTO Routine 01/16/2019 Alcohol ic cirrhosis of DIFFERENTIAL 3:56 PM SECTION REPAIRER liver without ascit es (HCC) AB SPECIFICITY CLASS I Routine 01/16/2019 ESRD (e nd stage renal 3:56 PM SECTION REPAIRER disease) (HCC) Pre-transplant evaluation for end stage renal disease ALPHA FETOPROTEIN (AFP), Routine 01/16/2019 Alcoh olic cirrhosis of TUMOR MARKER 3:56 PM SECTION REPAIRER liver without ascit es (HCC) PROTHROMBIN TIME/INR Routine 01/16/2019 Alcoholic cirrhosis of 3:56 PM SECTION REPAIRER liver without ascites (HCC) CBC W/PLT COUNT & AUTO Routine 01/16/2019 Alcohol ic cirrhosis of DIFFERENTIAL 3:56 PM SECTION REPAIRER liver without ascit es (HCC) HEPATIC FUNCTION PANEL Routine 01/16/2019 Alcohol ic cirrhosis of 3:56 PM SECTION REPAIRER liver without ascites (HCC) BASIC METABOLIC PANEL (7) Routine 01/16/2019 Alco holic cirrhosis of 3:56 PM SECTION REPAIRER liver without ascites (HCC) FLOW PRA CLASS II WITH Routine 01/16/2019 ESRD (e nd stage renal REFLEX TO ANTIBODY 3:56 PM SECTION REPAIRER disease) (HCC) SPECIFICITY Pre-transplant evaluation for end stage renal disease FLOW PRA CLASS I WITH Routine 01/16/2019 ESRD (en d stage renal REFLEX TO ANTIBODY 3:56 PM SECTION REPAIRER disease) (HCC) SPECIFICITY Pre-transplant evaluation for end stage renal disease HLA TYPING CII Routine 01/16/2019 ESRD (end stage renal 3:56 PM SECTION REPAIRER disease) (HCC) Pre-transplant evaluation for end stage renal disease HLA TYPING CI Routine 01/16/2019 ESRD (end stage renal 3:56 PM SECTION REPAIRER disease) (HCC) Pre-transplant evaluation for end stage renal disease RHYTHM STRIP - SCAN 01/08/2019 9:10 AM SECTION REPAIRER TRANSFUSION SERVICE 01/06/2019 REPORT - SCAN 5:50 PM SECTION REPAIRER HEPATIC FUNCTION PANEL Routine 01/06/2019 6:01 AM SECTION REPAIRER PROTHROMBIN TIME/INR Routine 01/06/2019 6:01 AM SECTION REPAIRER MAGNESIUM Routine 01/06/2019 6:01 AM SECTION REPAIRER BASIC METABOLIC PANEL (7) Routine 01/06/2019 6:01 AM SECTION REPAIRER CBC (HEMOGRAM ONLY) Routine 01/06/2019 6:01 AM SECTION REPAIRER MISCELLANEOUS LAB ORDER Routine 01/06/2019 6:01 AM SECTION REPAIRER PREPARE LEUKO-REDUCED RBC Routine 01/05/2019 11:54 PM SECTION REPAIRER TRANSFUSION SERVICE 01/05/2019 REPORT - SCAN 5:50 PM SECTION REPAIRER PROTHROMBIN TIME/INR Routine 01/05/2019 4:30 AM SECTION REPAIRER HEPATIC FUNCTION PANEL Routine 01/05/2019 4:30 AM SECTION REPAIRER MAGNESIUM Routine 01/05/2019 4:30 AM SECTION REPAIRER BASIC METABOLIC PANEL (7) Routine 01/05/2019 4:30 AM SECTION REPAIRER CBC (HEMOGRAM ONLY) Routine 01/05/2019 4:30 AM SECTION REPAIRER PREPARE LEUKO-REDUCED RBC STAT 01/04/2019 11:54 PM SECTION REPAIRER TRANSFUSION SERVICE 01/04/2019 REPORT - SCAN 5:53 PM SECTION REPAIRER DRUG SCREEN, URINE, Routine 01/04/2019 TRANSPLANT 5:39 PM SECTION REPAIRER DRUG SCREEN, URINE, Routine 01/04/2019 COMPREHENSIVE 5:39 PM SECTION REPAIRER TRANSFUSE LEUKO-REDUCED Routine 01/04/2019 RED BLOOD CELLS 2:09 PM SECTION REPAIRER ETHANOL Routine 01/04/2019 9:42 AM SECTION REPAIRER CBC W/PLT COUNT & AUTO Routine 01/04/2019 DIFFERENTIAL 4:07 AM SECTION REPAIRER CBC W/PLT COUNT & AUTO Routine 01/04/2019 DIFFERENTIAL 4:07 AM SECTION REPAIRER HEPATIC FUNCTION PANEL Routine 01/04/2019 4:07 AM SECTION REPAIRER BASIC METABOLIC PANEL (7) Routine 01/04/2019 4:07 AM SECTION REPAIRER TRANSFUSE LEUKO-REDUCED STAT 01/04/2019 RED BLOOD CELLS 1:55 AM SECTION REPAIRER TYPE AND SCREEN, STAT 01/03/2019 AUTOMATED 9:56 PM SECTION REPAIRER CBC W/PLT COUNT & AUTO STAT 01/03/2019 DIFFERENTIAL 9:54 PM SECTION REPAIRER PT/APTT STAT 01/03/2019 9:54 PM SECTION REPAIRER HEPATIC FUNCTION PANEL STAT 01/03/2019 9:54 PM SECTION REPAIRER BASIC METABOLIC PANEL (7) STAT 01/03/2019 9:54 PM SECTION REPAIRER CBC W/PLT COUNT & AUTO STAT 01/03/2019 DIFFERENTIAL 9:54 PM SECTION REPAIRER REPORT OF PROCEDURE - 12/31/2018 ENDOSCOPY SCAN 12:52 PM SECTION REPAIRER TRANSFUSION SERVICE 12/27/2018 REPORT - SCAN 6:02 [...] ms QTC Calculatio n(Bazett) 541 ms P Panola 40 degrees R Panola 30 degrees T Panola 14 degrees Normal sinus rhythm Prolonged QT Abnormal ECG When compared with ECG of 9 03:56, Nonspecifi c T wave abnormalit y no longer evident in Lateral leads ECG 12-LEAD STAT 12/21/2018 1:18 AM CDT CRITICAL CARE Routine 12/21/2018 1:10 AM CDT after 12/06/2018 Results * MR abdomen with/without IV contrast (05/23/2019 12:08 PM CDT) Specimen Narrative Performed At FINAL REPORT [employer] MRI of the abdomen with and without [...] Report Verified Date/Time: 05/23/2019 12:54:18 Reading Location: [facility] [id number] Reading Room Procedure Note Interface, External Ris [...] Report Verified Date/Time: 05/23/2019 12:54:18 Reading Location: [facility] C0[facility] Ortho Consult Reading Room Performing Organization Address City/State/Zipcode Ph one Number GE RIS * CBC with platelet count + automated diff (05/23/2019 9:03 AM CDT) Only the most recent of 22 results within the time period is included. WBC 7.3 3.5 - 10.5 K/L [facility] RBC 2.33 (L) 4.63 - 6.08 M/L [facility] Hemoglobin 7.3 (L) 13.7 - 17.5 GM/DL [facility] Hematocrit 22.0 (L) 40.1 - 51.0 % [facility] MCV 94.4 (H) 79.0 - 92.2 fL [facility] MCH 31.3 25.7 - 32.2 pg [facility] MCHC 33.2 32.3 - 36.5 GM/DL [facility] RDW 18.6 (H) 11.6 - 14.4 % [facility] Platelets 94 (L) 150 - 450 K/CU MM [facility] MPV 8.4 (L) 9.4 - 12.4 fL [facility] nRBC 0 0 - 0 /100 WBC [facility] % Neutros 69 % [facility] % Lymphs 18 % [facility] % Monos 9 % [facility] % Eos 3 % [facility] % Baso 1 % [facility] # Neutros 5.03 1.78 - 5.38 K/L [facility] # Lymphs 1.31 (L) 1.32 - 3.57 K/L [facility] # Monos 0.62 0.30 - 0.82 K/L [facility] # Eos 0.23 0.04 - 0.54 K/L [facility] # Baso 0.06 0.01 - 0.08 K/L [facility] C[facility] Immature 0 0 - 1 % [facility] Specimen Blood Performing Organization Address City/State/Zipcode Ph one Number [place] [id number] [place], [place] [address] [facility] * Prothrombin time/INR (05/23/2019 9:03 AM CDT) Only the most recent of 10 results within the time period is included. Protime 16.6 (H) 11.9 - 14.2 seconds [facility] INR 1.4 <=5.9 [facility] Specimen Blood Narrative Performed At Effective 07/24/2018: PT Reference Range Change [facility] New: 11.9-14.2 Previous: 11.7-14.7 [facility] MEDICAL JASWANT TER RECOMMENDED COUMADIN/WARFARIN INR THERA PY RANGES STANDARD DOSE: 2.0-3.0 Includes: PROP HYLAXIS for venous thrombosis, systemic embolization; TREATMENT for venous thro mbosis and/or pulmonary embolus. HIGH RISK: Target INR is 2.5-3.5 for pa tients wiht mechanical heart valves. Performing Organization Address [facility] one Number [place] [id number] [facility] * Hepatic function panel (05/23/2019 9:03 AM CDT) Only the most recent of 11 results within the time period is included. Protein, Total 6.5 6.0 - 8.3 gm/dL [facility] Albumin 3.4 (L) 3.5 - 5.0 g/dL [facility] Total Bilirubin 5.4 (H) 0.2 - 1.2 mg/dL [facility] Bilirubin, 2.6 (H) 0.1 - 0.5 mg/dL [facility] Alkaline 200 (H) 40 - 150 U/L [facility] AST 46 (H) 5 - 34 U/L [facility] ALT 12 6 - 55 U/L [facility] Specimen Blood Narrative Performed At Dressage Instructor ID - ROSIANG [facility] Specimen moderately icteric [facility] Performing Organization Address [facility] one Number [address] [facility] * Basic Metabolic Panel (05/23/2019 9:03 AM CDT) Only the most recent of 16 results within the time period is included. Sodium 139 136 - 145 meq/L [facility] Potassium 3.3 (L) 3.5 - 5.1 meq/L [facility] Chloride 100 98 - 107 meq/L [facility] CO2 30 (H) 22 - 29 meq/L [facility] BUN 25 (H) 7 - 21 mg/dL [facility] Creatinine 2.87 (H) 0.57 - 1.25 mg/dL [facility] Glucose 112 (H) 70 - 105 mg/dL [facility] Calcium 8.5 8.4 - 10.2 mg/dL [facility] EGFR 25Comment: ESTIMATED GFR IS mL/min/1.73 sq m [facility] NOT ACCURATE CREATININE [facility] CLEARANCE IN PREDICTING MEDICAL CENTER GLOMERULAR FILTRATION RATE. ESTIMATED GFR IS NOT APPLICABLE FOR DIALYSIS PATIENTS. Specimen Blood Narrative Performed At Dressage Instructor ID - ROSIANG [facility] [facility] Performing Organization Address City/[facility] Ph one Number [place] [address] [facility] * RHYTHM STRIP - SCAN (05/15/2019 [...] is n ot available. Performing Organization Address City/[facility] Ph one Number [facility] [address] [place], [place] * Bilirubin, direct (05/14/2019 9:30 AM CDT) Only the most recent of 4 results within the time period is included. Bilirubin, 2.0 (H) 0.1 - 0.5 mg/dL [facility] Specimen Blood Performing Organization Address City/[facility] Ph one Number [phone] [place] [address] * EKG-SCANNED (05/13/2019 11:03 AM CDT) Only [...] included. Phosphorus 3.4 2.3 - 4.7 mg/dL [facility] Specimen Blood Narrative Performed At Dressage Instructor ID - ULYSSES Jang [facility] Performing Organization Address [facility] Ph one [address] * Magnesium (05/10/2019 5:22 AM CDT) Only the most recent of 14 results within the time period is included. Magnesium 1.9 1.6 - 2.6 mg/dL [facility] Specimen Blood Narrative Performed At Dressage Instructor ID - ULYSSES Jang [facility] Performing Organization Address City/[facility] one [address] * NM Myocardial Perfusion Pet/CT (Rest & Stress) (05/09/2019 2:55 PM CDT) Specimen Narrative Performed At FINAL REPORT GE [facility] PROCEDURE: MYOCARDIAL PERFUSION PET HEAVENLY GING (Rest/Stress) CPT CODE: 28020 INDICATION: Assess symptoms/risk factor s of possible [...] Report Verified Date/Time: 05/09/2019 16:05:35 Reading Location: [address] Reading Room Procedure Note Interface, External Ris In - 05/09/2019 4:07 PM CDT FINAL REPORT PROCEDURE: MYOCARDIAL PERFUSION PET IMAGING (Rest/Stress) CPT CODE: 99295 INDICATION: Assess symptoms/risk factors of possible CAD [...] Report Verified Date/Time: 05/09/2019 16:05:35 Reading Location: [address] [address] Nuc Med Reading Room Performing Organization Address [...] Organization Address City/State/Zipcode Ph one Number GE RE * Comprehensive metabolic panel (05/09/2019 5:35 AM CDT) Only the most recent of 8 results within the time period is included. Protein, Total 6.1Comment: Specimen slightly 6.0 - 8.3 gm/dL [facility] Albumin 2.9 (L)Comment: Specimen 3.5 - 5.0 g/dL [facility] hemolyzed [facility] Alkaline 116 40 - 150 U/L [facility] Total Bilirubin 4.1 (H)Comment: Specimen 0.2 - 1.2 mg/dL [facility] Sodium 131 (L) 136 - 145 meq/L [facility] Potassium 3.9Comment: Specimen slightly 3.5 - 5.1 meq/L [facility] Chloride 99 98 - 107 meq/L [facility] CO2 23 22 - 29 meq/L [facility] BUN 22 (H) 7 - 21 mg/dL [facility] Creatinine 4.22 (H)Comment: Specimen 0.57 - 1.25 mg/dL [facility] Glucose 108 (H) 70 - 105 mg/dL [facility] Calcium 8.1 (L) 8.4 - 10.2 mg/dL [facility] AST 30Comment: Specimen slightly 5 - 34 U/L [facility] ALT 8Comment: Specimen slightly 6 - 55 U/L [facility] EGFR 16Comment: ESTIMATED GFR IS mL/min/1.73 sq m [facility] NOT ACCURATE CREATININE [facility] CLEARANCE IN PREDICTING MEDICAL CENTER GLOMERULAR FILTRATION RATE. ESTIMATED GFR IS NOT APPLICABLE FOR DIALYSIS PATIENTS. Specimen Blood Narrative Performed At Dressage Instructor ID - ULYSSES M [facility] Specimen slightly icteric [facility] Performing Organization Address City/State/Zipcode Ph one Number [facility] [address] [place], [place] [address] [facility] * TRANSFUSION SERVICE REPORT - SCAN (05/08/2019 5:52 PM CDT) Only the most recent of 14 results within the time period is included. Narrative Performed At This result has an attachment that is n ot available. * Limited 2D Echocardiogram (05/08/2019 11:40 AM CDT) Ejection [facility] ECHO Fraction HEARTLAB [facility] Specimen Narrative Performed At Transthoracic Echocardiography Report (TTE) [facility] ECH O HEARTLAB Demographics [facility] Patient Name INDRA GALVAN Date of Study 05/08/2019 YAN CORDERO Gender Male Visit Number [id number] Race Unknown Room Number 6213 Number Date of 1980 Referring Physician ROBBIE NEW Age 38 year(s) Political Geographer Renny Yepez [place] Nick Navarro Interpreting Physician MELVA Jackson Procedure Type of Study TTE procedure:LIMITED 2D EC HOCARDIOGRAM (STAT) Indications:Suspected Pericardial condi tions. Clinical History [...] Normal left ventricular chamber size. Normal wall thic kness. Normal overall left ventricular systolic func tion. No apparent segmental wall motion abno rmalities. Estimated LVEF by qualitative asse ssment is normal (>60%) . Left Atrium LA size is itue-qu-mzrccxxcln enlarged . Right Ventricle Normal right ventricle structure and function. Right Atrium Right atriu m dilated. Aortic Valve Normal AoV structure. Mitral Valve Normal MV s tructure. Tricuspid Valve A trace of t ricuspid regurgitation. Pulmonic Valve PV is not we ll visualized. Aorta Aortic root size (SInus of Valsalva diameter) is norm al . Pericardium Trivial to small residual pericardial effusion note d. IVC/SVC/PA/PV/Pleural The estimated R A pressure by IVC dynamics 11-15mmHg . Chambers/Structures Left Atrium LA Dimension: 4.5 cm LA Area: 25.88 cm^2 LA Volume: 83.12 ml LA Vol. Index: 41 ml/m^2 Left Ventricle LVIDd: 5.18 cm LV Septum Diastolic: 1.08 cm LV PW Diastolic: 1.1 cm Right Atrium RA Area: 20.49 cm^ 2 Aorta Ao Root S of Yasmin.: 3.23 cm Procedure Note Interface, External Ris In - 05/08/2019 1:37 PM CDT Transthoracic Echocardiography Report (TTE) Demographics Patient Name INDRA GALVAN Date of Study 05/08/2019 YAN CORDERO Gender Male Visit Number [id number] Race Unknown Room Number 6213 Number Date of 1980 Referring Physician ROBBIE NEW Age 38 year(s) Political Geographer Renny Yepez [employer] [place] Nick Navarro Interpreting Physician MELVA Jackson Procedure [...] (>60%) . Left Atrium LA size is usdk-ku-mqmhfwwnua enlarged . Right Ventricle Normal right ventricle [...] Number [facility] ECHO HEARTLAB [facility] * Procalcitonin (05/08/2019 3:02 AM CDT) Only the most recent of 3 results within the time period is included. Procalcitonin 3.64 (H) <0.05 ng/mL [facility] Specimen Blood Narrative Performed At SEPSIS RISK (ng/mL) [facility] Low: 0.05-0.50 [facility] Intermediate: 0.51-2.00 High: >=2.01 Performing Organization Address City/State/Zipcode Ph one Number [facility] [address] [place], [place] [address] MEDICAL CENTER * Manual Differential (05/08/2019 3:02 AM CDT) Only the most recent of 3 results within the time period is included. % Neutros 74 % [facility] % Lymphs 12 % [facility] % Monos 9 % [facility] % Eos 2 % [facility] % Baso 3 % [facility] # Neutros 8.66 (H) 1.78 - 5.38 K/ul [facility] # Lymphs 1.40 1.32 - 3.57 K/ul [facility] # Monos 1.05 (H) 0.30 - 0.82 K/uL [facility] # Eos 0.23 0.04 - 0.54 K/uL [facility] # Baso 0.35 (H) 0.01 - 0.08 K/uL [facility] Total Counted 100 [facility] Platelet Normal [facility] Toxic Present [facility] Polychromasia 2+ moderate [facility] Hypochromia 1+ few [facility] Anisocytosis 1+ few [facility] Macrocytes 1+ few [facility] Poikilocytes 1+ few [facility] All Cells 1+ few [facility] Artifact Present [facility] Platelet Conc Adequate [facility] Specimen Blood Narrative Performed At Dressage Instructor ID - Ivonne Gray [facility] User comments: [facility] Slide comments: Performing Organization Address [facility] Ph one Number [facility] [address] [place] [address] [facility] * Prepare Leuko-Red RBC (05/07/2019 11:54 PM CDT) Only the most recent of 8 results within the time period is included. CROSSMATCH COMPATIBLE [place]AF[place] Unit ABO B Pos [place] [place] UNIT NUMBER [id number] [place] Status TX_TIMEINCHART [facility] Blood Bank RED BLOOD CELLS [place] Product PRODUCT CODE [id number] [place] Specimen Other Performing Organization Address [facility] one Number [place] * PERIPHERAL VASCULAR REPORT - SCAN (05/07/2019 9:12 PM CDT) Only the most recent of 2 results within the time period is included. Narrative Performed At This result has an attachment that is n ot available. * Body fluid culture + gram stain (05/07/2019 7:20 PM CDT) Result No growth [facility] Gram Stain 1+ White blood cells seen [facility] Gram Stain No organisms seen [facility] Specimen Body Fluid - Pericardial structure (body structure) Performing Organization Address [facility] Ph one Number [address] [address] [facility] * Cytology (05/07/2019 7:20 PM CDT) Case Report Medical Cytology Report [facility] Case: [id number] [facility] Authorizing Provider: Robbie New MD Collected: 05/07/2019 1920 Ordering Location: [place] [address] CCU Received: 05/08/2019 1445 Pathologist: Josh Yang MD Specimen: Pericardial DIAGNOSIS PERICARDIAL FLUID (CYTOSPINS): [facility] NITA Electronically - NEGATIVE FOR MALIGNANCY [facility] signed by Julia Yang Pathologist [facility] Laine Sanchez Direct Phone Line: on 05/09/2019 at [phone] 4:28 PM CPT Code(s) [address] [facility] CLINICAL DATA Pericardial effusion, [facility] cirrhosis [facility] SPECIMEN SOURCE PERICARDIAL FLUID [facility] GROSS 600 mls bloody fluid; 4 [facility] cytospins [facility] Collected: [id number] [facility] Received: [id number] STATEMENT OF Satisfactory [facility] Gross [facility] assessment was [facility] BCM performed at Pathology, [address] [place] [address], Technical [facility] component was [facility] BCM performed at Pathology, [address] [place] [address], Professional [facility] component was [facility] BC performed at [facility], [address] [place] [address], Specimen Body Fluid - Pericardial sac structure (body structure) Narrative Performed At This result has an attachment that is n ot available. Performing Organization Address City/State/Zipcode Ph one Number [address] [address] [facility] * 2D Echo W/Doppler(CW/PW/Color) (05/07/2019 6:32 PM CDT) Ejection [facility] ECHO Fraction [facility] Specimen Narrative Performed At Transthoracic Echocardiography Report (TTE) [facility] ECH O HEARTLAB Demographics [facility] Patient Name INDRA GALVAN Date of Study 05/07/2019 YAN SONFredy Gender Male Visit Number [id number] Race Unknown Room Number 6213 Number Date of 1980 Referring Robbie New MD Physician Age 38 year(s) Political Geographer Aneudy Jerez Interpreting Vic Caruso, Physician Fellow Indra Murry MD Procedure Type of Study TTE procedure:2DECHO W DOPP LER(CW/PW/COLOR) (STAT) Indications:Pericardiocentesis. Clinical History HGB 7.4 HCT [...] segments c ontract normally . Global LV systol ic function normal . LVEF by New' s method of disk assessment is normal (>60%) . Left Atrium LA size is moderately enlarged (42-48 ml/m2) . Right The right ventricul ar chamber size and systolic function Ventricle are within normal smith its. Right Atrium RA cavity size is marianela l . Aortic Valve Normal AoV structure. Mitral Valve Normal MV structure. Tricuspid TV structure is marianela l. Valve Pulmonic Valve Pericardium A moderate-large circu mferential pericardial effusion is present. Procedure Note Interface, External Ris In - 05/08/2019 9:48 AM CDT Transthoracic Echocardiography Report (TTE) Demographics Patient Name INDRA GALVAN Date of Study 05/07/2019 YAN CORDERO Gender Male Visit Number [id number] Race Unknown Room Number 6213 Number Date of 1980 Referring Robbie New MD Physician Age 38 year(s) Political Geographer Aneudy Jerez Interpreting Physician MELVA Jackson Fellow [...] Performing Organization Address City/State/Zipcode Ph one Number [facility] ECHO HEARTLAB [facility] * Carotid doppler bilateral (05/06/2019 4:05 PM CDT) Pathologist [facility] Ejection [facility] ECHO Fraction HEARTLAB [facility] Specimen Impressions Performed At Right Impression [facility] ECHO HEARTLAB 1. The internal carotid artery is within normal limit s. [facility] 2. The external carotid artery is [...] +----+----+-----+------ ------+ + + !Location !PSV !EDV !Angle!%St enosis 2D!%Stenosis Doppler!Tortuosity ! + +----+----+-----+------ ------+ + + !Prox CCA !110 !24 !60 ! ! ! ! + +----+----+-----+------ ------+ + + !Dist CCA !112 !29.3!60 ! ! ! ! + +----+----+-----+------ ------+ + + !Prox ICA !115 !27.5!60 ! !Normal ! ! + +----+----+-----+------ ------+ + + !Dist ICA !127 !37.3!60 ! ! ! ! + +----+----+-----+------ ------+ + + !Prox ECA !131 !23.6!60 ! ! ! ! + +----+----+-----+------ ------+ + + !Vertebral !68.6!21.7!60 ! ! ! ! + +----+----+-----+------ ------+ + + !Prox Subclavian!163 ! !60 ! ! ! ! + +----+----+-----+------ ------+ + + - There is antegrade vertebral flow n oted on the right side. - Additional Measurements:ICAPSV/CCAP SV 1.13.ICAEDV/CCAEDV 1.55. Carotid Left Measurements + +----+----+-----+------ ------+ + + !Location !PSV !EDV !Angle!%St enosis 2D!%Stenosis Doppler!Tortuosity ! + +----+----+-----+------ ------+ + + !Prox CCA !135 !28.8!60 ! ! ! ! + +----+----+-----+------ ------+ + + !Dist CCA !139 !32.7!60 ! ! ! ! + +----+----+-----+------ ------+ + + !Prox ICA !85.6!28.7!60 ! !Normal ! ! + +----+----+-----+------ ------+ + + !Dist ICA !134 !40.9!60 ! ! ! ! + +----+----+-----+------ ------+ + + !Prox ECA !130 !24.6!60 ! ! ! ! + +----+----+-----+------ ------+ + + !Vertebral !76.2!17.3!60 ! ! ! ! + +----+----+-----+------ ------+ + + !Prox Subclavian!187 ! !60 ! ! ! ! + +----+----+-----+------ ------+ + + - There is antegrade vertebral flow n oted on the left side. - Additional Measurements:ICAPSV/CCAP SV 0.96.ICAEDV/CCAEDV 1.42. Narrative Performed At PV LAB - Carotid Duplex Study [facility] ECHO HEARTLAB Demographics [facility] Patient Name INDRA GALVAN Date of Study 05/06/2019 YAN CORDERO Age 38 Visit Number [id number] Gender Male Accession Number [id number] Date of 1980 Referring Karen Carranza Room Number 6213 Physician SONIDOAlfred Political Geographer Cb MARINO S Interpreting Karen Blackwell Physician Procedure Type of Study: Cerebral: Carotid, CAROTID DOPPLER, HAKEEM ATERAL. Indications for Study:Pre transplant ev aluation. Patient Status:Routine. Study Location:Vascular Lab. Technical Quality:Adequate visualizatio n. Risk Factors History of Disease + + +------- + !Diagnosis !Date !Comments ! + + +------- + !History/Risk !06/04/2018!ARDS , HTN, Obesity ! !Factors: ! ! ! + + +------- + !History/Risk !12/24/2018!Hist ory of fall 5 days ago, ESRD, LIver ! !Factors: ! !failure ! + + +------- + Procedure Note Interface, External Ris In - 05/07/2019 4:57 PM CDT PV LAB - Carotid Duplex Study Demographics Patient Name INDRA GALVAN Date of Study 05/06/2019 YAN CORDERO Age 38 Visit Number [id number] Gender Male Accession Number [id number] Date of 1980 Referring Karen Carranza Room Number 6213 Physician SARAH Political Geographer Cb Maki RVS Interpreting Karen Blackwell Physician [...] Performing Organization Address City/State/Zipcode Ph one Number [facility] ECHO HEARTLAB [facility] * REPORT OF PROCEDURE - ENDOSCOPY URL (05/06/2019 1:43 PM CDT) Narrative Performed At This result has an attachment that is n ot available. * 2D Echo W/Doppler(CW/PW/Color) (05/06/2019 1:06 PM CDT) Ejection [facility] Specimen Narrative Performed At Transthoracic Echocardiography Report (TTE) [facility] ECH O HEARTLAB Demographics [facility] Patient Name INDRA GALVAN Date of Study 05/06/2019 YAN CORDERO Gender Male Visit Number [id number] Race Unknown Room Number 2454 Number Date of 1980 Referring Robbie New MD Physician Age 38 year(s) Political Geographer Aneudy Jerez [place] Joanna Whitley Interpreting Pratik Alexis MD Procedure Type of Study TTE procedure:2DECHO W DOPP LER(CW/PW/COLOR) (STAT) Indications:Acute Chest Pain/ Suspected CAD and [...] . Signature Findings Left Ventricle The left giulia tricle is chamber size (by PSLAX dime nsion) is normal (male - LVIDd 4.2-5.8cm) . Mild concentric LV hypertrophy. All of the LV segments contract normally . Glob al LV systolic function normal . LVEF by Nwe's method of disk assessment is norm al (>60%) . The LVEF was measured using New's bi-plane meth od of disk . Grad e 2 diastolic dysfunction (moderately increased LA p ressure). Left Atrium LA size is moderately enlarged (42-48 ml/m2) . Right Ventricle The right ve ntricular chamber size and systolic func tion are within normal limits. Right Atrium RA cavity s ize is normal . Aortic Valve Normal AoV structure and function. Mitral Valve Normal MV s tructure. Trac e mitral regurgitation. Tricuspid Valve TV structure is normal. A tr fortino of tricuspid regurgitation. Daxa mated peak systolic PA pressure is 45-50 mmHg . Pulmonic Valve Normal PV st ructure and function. Aorta Aortic root size (SInus of Valsalva diameter) is norm al . Proximal ascending aorta size is normal . Pericardium A large ci rcumferential pericardial effusion is pres ent with prominent fibrinous strands. Laura cardial tamponade physiology is not evident base d on available data . IVC/SVC/PA/PV/Pleural The estimated R A pressure by IVC dynamics 16-20mmHg . The [...] LVOT Diameter: 2.1 cm Right Ventricle TAPSE: 1.8 7 cm Aorta Ao Root S of Yasmin.: [...] 05/06/2019 YAN CORDERO Gender Male Visit Number [id number] Race Unknown Room Number 2454 Number Date of 1980 Referring Robbie New MD Physician Age 38 year(s) Political Geographer Aneudy Jerez [employer] [place] Joanna Whitley Interpreting Pratik Pak Physician MD [...] <0.01 0.00 - 0.03 ng/mL [facility] Specimen Blood Narrative Performed At Troponin I (TnI) levels must be interpreted in the co ntext of the presenting [facility] symptoms and the clinical findings. Elevated TnI leve ls indicate myocardial [facility] damage, but are not specific for ischem ic heart disease. Elevated TnI levels are seen in patients with other cardiac con ditions (including myocarditis and congestive heart failure), and slight T nI elevations occur in patients with other conditions, including sepsis, tay al failure, acidosis, acute neurological disease, and persistent tachyarrhythmia . Dressage Instructor ID - BS Performing Organization Address City/State/[facility] Ph one Number [address] [address] MEDICAL CENTER * ECG 12 lead (05/05/2019 8:53 PM CDT) Only the most recent of 5 results within the time period is included. Specimen Narrative Performed At Ventricular Rate 128 BPM GE MUSE Atrial Rate 89 BPM QRS Duration 94 ms Q-T Interval 336 ms QTC Calculation(Bazett) 490 ms R Panola 151 degrees T Panola -88 degrees Atrial fibrillation Left posterior fascicular [...] 336 ms QTC Calculation(Bazett) 490 ms R Panola 151 degrees T Panola -88 degrees Atrial fibrillation Left posterior fascicular [...] leads Confirmed by MD YORK JOSEPH P ([id number]) on 05/06/2019 6:34:11 AM Performing Organization Address City/State/[facility] Ph one Number GE MUSE * Hepatitis B surface antigen (05/05/2019 3:02 PM CDT) Only the most recent of 2 results within the time period is included. HBsAg Screen Nonreactive Nonreactive [facility] Specimen Blood Narrative Performed At Dressage Instructor ID - BS [facility] Performing Organization Address [facility] Ph one Number [place] [phone] [place] [address] * Occult blood, stool (05/05/2019 12:07 PM CDT) Occult blood Negative Negative [facility] Specimen Stool - Feces (substance) Performing Organization Address [facility] one [place] [phone] [place] [address] * ABORH, manual (05/05/2019 9:51 AM CDT) ABO Grouping B [facility] Rh Factor POS [facility] Specimen Blood Performing Organization Address [facility] one [place] [phone] [place] [address] * Iron, TIBC, % sat. (without ferritin) (05/05/2019 9:51 AM CDT) Only the most recent of 2 results within the time period is included. Iron 88.0 40.0 - 160.0 ug/dL [facility] TIBC 130 (L) 250 - 450 ug/dL [facility] Iron % 68 (H) 20 - 55 % [facility] Specimen Blood Narrative Performed At Dressage Instructor ID - PIAYA L [facility] Performing Organization Address [facility] Ph one [place] [phone] [place] [address] * Reticulocyte count (05/05/2019 9:51 AM CDT) % Retic 2.3 (H) 0.5 - 1.8 % [facility] Specimen Blood Narrative Performed At Dressage Instructor ID - [id number] [facility] Performing Organization Address [facility]/Zipcode Ph one [address] [facility] * Direct [facility]HG (LUMA)/Direct Antonia (05/05/2019 9:51 AM CDT) Direct AHG-IGG NEGATIVE [facility] Direct [facility] AHG-C3B, C3D [facility] Specimen Blood Performing Organization Address [facility] Ph one Number [address] [address] [facility] * Ferritin (05/05/2019 9:51 AM CDT) Only the most recent of 2 results within the time period is included. Ferritin 1,081 (H) 5 - 275 ng/mL [facility] Specimen Blood Narrative Performed At Dressage Instructor ID - AAQUENTINID [facility] Performing Organization Address [facility] one [place] [phone] [place] [address] * Lactic acid, venous (05/05/2019 12:29 AM CDT) Only the most recent of 3 results within the time period is included. Lactate, Venous 2.6 (H) 0.5 - 2.2 mmol/L [facility] Specimen Blood Narrative Performed At Dressage Instructor ID - PIAYA L [facility] Specimen slightly icteric [facility] Performing Organization Address [facility] one [address] [facility] * Type and screen, automated ([facility] and CECs only) (05/04/2019 8:42 PM CDT) Only the most recent of 5 results within the time period is included. ABO/RH B POSITIVE [facility] Ab Scrn NEGATIVE [facility] Specimen Blood Performing Organization Address City/State/Zipcode Ph one Number [facility] [address] [place] [address] [phone] MED[facility]ENTER * Urinalysis w/Microscopic + Reflex to Culture (05/04/2019 7:53 PM CDT) Color, UA Yellow [facility] Clarity, UA Hazy [facility] Specific 1.011 1.001 - 1.035 [facility] [place], [facility] pH, UA 5.5 5.0 - 8.0 [facility] Protein, UA 100 mg/dL (A) Negative [facility] Glucose, UA 100 mg/dL (A) Negative [facility] Ketones, UA Negative Negative [facility] Bilirubin, UA Negative Negative [facility] Blood, UA Negative Negative [facility] Nitrite, UA Negative Negative [facility] Leukocytes, UA Negative Negative [facility] Urobilinogen, 0.2 0.2 - 1.0 mg/dL [facility] RBC, UA 7 /HPF [facility] WBC, UA 12 /HPF [facility] Bacteria, UA Occasional [facility] Mucus Rare [facility] Squam Epithel, 18 /HPF [facility] Hyaline Casts, 78 /LPF [facility] Casts 70 /LPF [facility] Crystals, Urine Occasional [facility] Yeast Moderate [facility] Specimen Source [facility] Specimen Urine - Urine specimen collection, clean catch (procedure) Narrative Performed At Dressage Instructor ID - [auto] [facility] Dressage Instructor ID - tech [facility] Performing Organization Address City/[facility] one Number [facility] [address] [place], [place] [address] [facility] * Strep pneumoniae antigen (05/04/2019 7:53 PM CDT) Strep Presumptive negative for Presumptive negative [facility] pneumoniae pneumococcal pneumonia - see for pneumococcal [facility] Antigen comment pneumonia - see [facility]ENTER comment, Presumptive negative for pneumococcal meningitis - see comment Specimen Urine - Urine specimen collection, clean catch (procedure) Narrative Performed At Presumptive negative for pneumococcal p neumonia, suggesting no current or recent [facility] pneumococcal infection. Infection due t o S. pneumoniae cannot be ruled out since [facility] the antigen present in the sample may b e below the detection limit of the test. Performing Organization Address [facility] one Number [address] [facility] * Legionella antigen, urine (05/04/2019 7:53 PM CDT) Pathologist [facility] Legionella Negative - see commentComment: [facility] Urine Antigen Negative for L. pneumophila [facility] serogroup 1 antigen, [facility] suggesting no recent or current infection with this serogroup. Legionellosis cannot be ruled out since other serogroups and species may cause disease. Specimen Urine - Urine specimen collection, clean catch (procedure) Performing Organization Address [facility] one Number [address] [facility] * Urine culture (05/04/2019 7:53 PM CDT) Result <10,000 col/mL skin chase [facility] Specimen Urine - Urine specimen collection, clean catch (procedure) Performing Organization Address [facility] one Number [place] [id number] [place], [place] [address] [facility] * PT/aPTT (05/04/2019 7:29 PM CDT) Only the most recent of 3 results within the time period is included. Protime 18.9 (H) 11.9 - 14.2 seconds [facility] INR 1.6 <=5.9 [facility] PTT 40.7 (H) 22.5 - 36.0 seconds [facility] Specimen Blood Narrative Performed At Effective 07/24/2018: PT Reference Range Change [facility] New: 11.9-14.2 Previous: 11.7-14.7 [facility] MEDICAL JASWANT TER RECOMMENDED COUMADIN/WARFARIN INR THERA PY RANGES STANDARD DOSE: 2.0-3.0 Includes: PROP HYLAXIS for venous thrombosis, systemic embolization; TREATMENT for venous thro mbosis and/or pulmonary embolus. HIGH RISK: Target INR is 2.5-3.5 for pa tients wiht mechanical heart valves. Performing Organization Address [facility] one Number [address] [facility] * Blood Culture - Routine (Left Venipuncture) (05/04/2019 7:29 PM CDT) Only the most recent of 6 results within the time period is included. Pathologist [facility] Result No growth in 5 days [facility] Specimen Blood - Entire left upper arm (body structure) Performing Organization Address [facility] one Number [address] [facility] * B-type Natriuretic Factor (BNP) (05/04/2019 7:29 PM CDT) Pathologist [facility] BNP 612 (H) 0 - 100 pg/mL [facility] Specimen Blood Narrative Performed At Dressage Instructor ID - DB [facility] Performing Organization Address [facility] one Number [address] [facility] * Rapid Influenza A&B Screen (05/04/2019 7:28 PM CDT) Pathologist [facility] Rapid Influenza Negative Negative, [facility] A Antigen Inconclusive [facility] Rapid influenza Negative Negative, [facility] B Antigen Inconclusive [facility] Specimen Nasal - Nasopharyngeal wall structure (body structure) Performing Organization Address City/State/Zipcode Ph one Number [facility] [address] [place], [place] [address] [facility] * CRITICAL CARE (05/04/2019 6:47 PM CDT) Narrative Performed At Juanpablo Calhoun MD 05/04/2019 9:12 PM Critical Care Performed by: Juanpablo Calhoun [...] Report Verified Date/Time: 05/04/2019 18:08:08 Reading Location: [address] Reading Room Procedure Note Interface, External [...] Report Verified Date/Time: 05/04/2019 18:08:08 Reading Location: [facility] [id number] Transitional Reading Room Performing Organization Address City/State/Zipcode Ph one Number [facility] * US pelvis with doppler (02/03/2019 9:35 AM SECTION REPAIRER) Specimen Narrative Performed At FINAL REPORT [facility] Pelvic ultrasound dated 02/03/2019. COMMENT: Real-time [...] iliac artery measures 1.0 cm. The left production intern al iliac artery is not visualized. The bilateral common and external iliac veins are patent. IMPRESSION: Unremarkable pelvic vascula ture. Signed: Keith Garcia MD Report Verified Date/Time: 02/03/2019 11:35:01 Reading Location: [address] Reading Room Procedure Note Interface, External Ris In - 02/03/2019 11:37 AM SECTION REPAIRER FINAL REPORT Pelvic ultrasound dated 02/03/2019. COMMENT: [...] Report Verified Date/Time: 02/03/2019 11:35:01 Reading Location: [address] Radiology Reading Room Performing Organization Address [facility] one Number [facility] * Vitamin B12 and Folate (01/18/2019 5:47 PM SECTION REPAIRER) Vitamin B12 1,988 (H) 213 - 816 pg/mL [facility] Folate 17.8 >=7.0 ng/mL [facility] Specimen Blood Performing Organization Address [facility] one Number [address] [facility] * Lactate dehydrogenase (LDH) (01/18/2019 5:47 PM SECTION REPAIRER) Only the most recent of 2 results within the time period is included. LDH 192 125 - 220 U/L [facility] Specimen Blood Performing Organization Address [facility] one Number [address] [facility] * Haptoglobin (01/18/2019 5:47 PM SECTION REPAIRER) Only the most recent of 2 results within the time period is included. Haptoglobin 14 14 - 258 mg/dL [facility] Specimen Blood Performing Organization Address [facility] one Number [address] [facility] * Hemoglobin and hematocrit (01/18/2019 11:17 AM SECTION REPAIRER) Only the most recent of 2 results within the time period is included. Hemoglobin 7.5 (L) 13.7 - 17.5 GM/DL [facility] Hematocrit 23.0 (L) 40.1 - 51.0 % [facility] Specimen Blood Performing Organization Address [facility] one Number [address] [place] [address] [facility] * CBC (Hemogram only) (01/18/2019 2:51 AM SECTION REPAIRER) Only the most recent of 5 results within the time period is included. WBC 6.6 3.5 - 10.5 K/L [facility] RBC 2.11 (L) 4.63 - 6.08 M/L [facility] Hemoglobin 6.7 (L) 13.7 - 17.5 GM/DL [facility] Hematocrit 20.2 (L) 40.1 - 51.0 % [facility] MCV 95.7 (H) 79.0 - 92.2 fL [facility] MCH 31.8 25.7 - 32.2 pg [facility] MCHC 33.2 32.3 - 36.5 GM/DL [facility] RDW 17.3 (H) 11.6 - 14.4 % [facility] Platelets 74 (L) 150 - 450 K/CU MM [facility] MPV 10.1 9.4 - 12.4 fL [facility] nRBC 0 0 - 0 /100 WBC [facility] Specimen Blood Performing Organization Address City/State/Zipcode Ph one Number [address] [facility] * HLA TYPING CII (01/16/2019 3:56 PM SECTION REPAIRER) HLA-DR AG1 15 [facility] HLA TESTING HLA-DR AG2 4 [facility] HLA TESTING HLA-DR AG4-2 53 [facility] HLA TESTING HLA-DR AG5-1 51 [facility] HLA TESTING HLA-DQA1 AG 1-1 01 [facility] HLA TESTING HLA-DQA1 AG 1-2 03 [facility] HLA TESTING HLA-DQB1 AG 1-1 6 [facility] HLA TESTING HLA-DQB1 AG 1-2 8 [facility] HLA TESTING HLA-DPA1 AG 1-1 01 [facility] HLA TESTING HLA-DPA1 AG 1-2 01 [facility] TEST[facility] HLA-DPB1 AG 1-1 02:01 [facility] HLA-DPB1 AG 1-2 04:02 [facility] Specimen Blood Narrative Performed At Disclaimer: [facility] HLA TESTING This test was developed and its perform ance characteristics determined by the [facility] Laboratory. It has not been cleared [...] complexity clinical laboratory testing. Performing Organization Address [facility] one Number [facility] HLA TESTING ONE [facility] [place], [place]: [id number], [place] [address] CLIA#[id number] CAP#[id number] UNOS#[id number] * HLA TYPING CI (01/16/2019 3:56 PM SECTION REPAIRER) [facility] HLA-A AG1 3 [facility] HLA-A AG2 68 [facility] HLA-B AG1 7 [facility] HLA TESTING HLA-B AG2 35 [facility] HLA TESTING HLA-C AG1 7 [facility] HLA TESTING HLA-C AG2 7 [facility] HLA TESTING HLA-B BW1 6 [facility] HLA TESTING HLA-B BW2 6 [facility] TEST[facility] Specimen Blood Narrative Performed At Disclaimer: [facility] HLA TESTING This test was developed and its perform ance characteristics determined by the [facility] Laboratory. It has not been cleared [...] complexity clinical laboratory testing. Performing Organization Address [facility] one Number [facility] HLA TEST[facility] ONE [facility] [place], [place]: [id number], [place] [address] CLIA#[id number] CAP#[id number] UNOS#[id number] * FLOW PRA CLASS II WITH REFLEX TO ANTIBODY SPECIFICITY (01/16/2019 3:56 PM SECTION REPAIRER) Flow Class II 0 [facility] Percent TESTING Positive Specimen Blood Narrative Performed At Disclaimer: [facility] HLA TEST[facility] This test was developed and its perform ance characteristics determined by the [facility] Laboratory. It has not been cleared [...] complexity clinical laboratory testing. Performing Organization Address [facility] one Number [facility] ONE [place]za, [place]: [id number], [place] [address] CLIA#[id number] CAP#[id number] [facility]#[id number] * FLOW PRA CLASS I WITH REFLEX TO ANTIBODY SPECIFICITY (01/16/2019 3:56 PM SECTION REPAIRER) Flow Class I 20 [facility] HLA Percent TESTING Positive Specimen Blood Narrative Performed At Disclaimer: [facility] HLA TESTING This test was developed and its perform ance characteristics determined by the [facility] Laboratory. It has not been cleared [...] complexity clinical laboratory testing. Performing Organization Address [facility] one Number [facility] ONE Gregorio Pedroza, [place]: [id number], [place] [address] CLIA#[id number] CAP#[id number] UNOS#[id number] * AB SPECIFICITY CLASS I (01/16/2019 3:56 PM SECTION REPAIRER) AB Specificity NO CLASS I ANTIBODY DETECTED [facility] LA Class I WITH MFIs > 4000 TESTING Specimen Blood Narrative Performed At Disclaimer: [facility] TEST[facility] This test was developed and its perform ance characteristics determined by the [facility] Laboratory. It has not been cleared [...] complexity clinical laboratory testing. Performing Organization Address [facility] one Number [facility] HLA TESTING ONE [facility] [place], [place]: [id number], [place] [address] CLIA#[id number] CAP#[id number] UNOS#[id number] * Alpha fetoprotein (AFP), tumor marker (01/16/2019 3:56 PM SECTION REPAIRER) Alpha-Fetoprote 2.7 <10.0 ng/mL [facility] Specimen Blood Performing Organization Address [facility] one Number [address] [facility] * Drug screen, urine, transplant (01/04/2019 5:39 PM SECTION REPAIRER) Specimen Urine Narrative Performed At This result has an attachment that is n ot available. Performing Organization Address [facility] one Number [facility] [address] [phone] * Drug screen, urine, comprehensive (01/04/2019 5:39 PM SECTION REPAIRER) Specimen Urine Narrative Performed At This result has an attachment that is n ot available. * Ethanol (01/04/2019 9:42 AM SECTION REPAIRER) Ethanol Lvl <10 <=10 mg/dL [facility] Specimen Blood Performing Organization Address [facility] one Number [address] [facility] * Vancomycin level, random (12/26/2018 3:56 AM CDT) Only the most recent of 2 results within the time period is included. Vancomycin Rm 16.4 ug/mL [facility] Specimen Blood Narrative Performed At Reference Range: No Normals [facility] Performing Organization Address [facility] one Number [address] [place] [address] [facility] * Venous doppler legs bilateral (12/24/2018 6:55 PM CDT) Ejection [facility] ECHO Fraction HEART[facility]UL [facility] Specimen Impressions Performed At Right Impression [facility] ECHO HEARTLAB 1. There is no deep venous obstruction in the common femoral, profunda [facility] femoral, femoral, popliteal, posterior tibial or peroneal [...] PV LAB - Lower Extremities DVT Study [facility] ECHO HEART LAB Demographics [facility] Patient Name INDRA GALVAN Date of Study 12/24/2018 YAN CORDERO Age 38 Visit Number [id number] Gender Male Accession Number [id number] Date of 1980 Referring Audie Hoyt MD Room Number 9814 Physician Political Geographer Cb MARINO S Interpreting Physician MELVA Meeks Procedure Type of Study: Veins: Lower Extremities DVT Study, GIULIA OUS DOPPLER LEG, BILATERAL. Indications for Study:Leg swelling. Patient Status:Routine. Study Location:Portable. Technical Quality:Adequate visualizatio n. Risk Factors History of Disease + + +------- + !Diagnosis !Date !Comments ! + + +------- + !History/Risk !06/04/2018!ARDS , HTN, Obesity ! !Factors: ! ! ! + + +------- + !History/Risk !12/24/2018!Hist ory of fall 5 days ago, ESRD, LIver ! !Factors: ! !failure ! + + +------- + Procedure Note Interface, External Ris In - 12/25/2018 12:50 PM CDT PV LAB - Lower Extremities DVT Study Demographics Patient Name INDRA GALVAN Date of Study 12/24/2018 YAN CORDERO Age 38 Visit Number [id number] Gender Male Accession Number [id number] Date of 1980 Referring Audie Hoyt MD Room Number 9775 Physician Political Geographer Cb Maki RVS Interpreting Karen Blackwell, Physician [...] are measured in cm Performing Organization Address City/State[facility] one Number [facility] ECHO HEARTLAB MKCKESSON [facility] * HEMODIALYSIS INPATIENT (12/23/2018 11:25 PM CDT) Narrative Performed At Flakita Wilkinson RN 12/24/2018 12: 23 AM Verified informed consent signed for HD . Patient completed 4 hours of HD via right SC CVC, with net fluid removal of 2 liters. Asymptomatic hypotension throughout sarah atment. 2 doses of Mannitol 12.5 G administered for BP sup port. Report given to Nahid Cheng RN. Lab [...] B Surface Ag Latest Ref Range : Nonreactive Nonreactive * CT lower extremity without IV contrast right (12/22/2018 9:04 PM CDT) Specimen Narrative Performed At FINAL REPORT [facility] CT right lower extremity. CLINICAL HISTORY: Knee trauma, tenderne ss or effusion, initial exam (Age > 1y) TECHNIQUE: Contiguous axial images of t he right lower extremity without contrast with coronal and sagit chely reformations. This exam was performed according to the [facility] dose optimization program which includes automated exposure contr ol, adjustment of the mA and/or kV according to the patient size , and/or use of an iterative reconstruction technique. COMPARISON: None FINDINGS: Sclerosis in the lateral femoral condyl e favored to represent a bone island. Incidentally noted fabella. No acute fracture. Trace knee joint effusion. Soft tissue irregular ity anterior to the tibial tuberosity favored to represent lacerat ion/contusion. Vascular calcifications. IMPRESSION: No acute fracture. Trace knee joint effusion. Soft tissue irregularity anterior to th e tibial tuberosity favored to represent laceration/contusion. Signed: Cherri Olivier MD Report Verified Date/Time: 12/23/2018 03:00:15 Procedure Note Interface, External Ris In [...] Verified Date/Time: 12/23/2018 03:00:15 Performing Organization Address [facility] one Number [facility] * Vancomycin level, trough (12/22/2018 4:26 PM CDT) Vancomycin Tr 40.3 (HH) 10.0 - 20.0 ug/mL [facility] Specimen Blood Performing Organization Address [facility] one Number [address] [facility] * Fibrinogen (12/22/2018 3:55 AM CDT) Fibrinogen 195 (L) 225 - 434 mg/dl [facility] Specimen Blood Performing Organization Address [facility] one Number [address] [facility] * POC-Lactic Acid, Venous (12/21/2018 4:01 AM CDT) Only the most recent of 2 results within the time period is included. POC-Lactic 1.6Comment: TESTED AT [facility] 0.9 - 1.7 mmol/L [facility] Acid, Venous [address] [place] [id number] [facility] Specimen Blood Performing Organization Address [facility] one Number [address] [facility] * Ammonia (12/21/2018 2:48 AM CDT) Ammonia 65 18 - 72 mol/L [facility] Specimen Blood Performing Organization Address [facility] one Number [address] 7[address] [facility] * XR knee complete 4 [...] Reich MD Report Verified Date/Time: 12/21/2018 01:49:02 Procedure Note Interface, External Ris In [...] CDT) Narrative Performed At Víctor Dumont MD 019 4:23 AM Critical Care Performed by: Víctor Dumont [...] an d review of old charts. after 12/06/2018 Insurance Type Payer Benefit Subscriber ID Effective Phone Address Plan / Dates Group PPO BLUE CROSS/BLUE SHIELD BCBS PPO [id number] 2017-P [address] EPO resent [id number] [place] [address] [id number] Advance Directives For more information, please contact: [phone] Date Inactivated Comments Code Status Date Activated [...]
--- OUTSIDE RECORDS SUMMARY | 2019-12-07 23:16 | XMS REPORT | Continuity of Care Document ---
Author Author [facility] t Organization [facility] t Address [address] [place] [address] Phone Unavailable Care Team Providers Care Warp Dresser Name Role Phone NO, PCP PCP Unavailable Anastacio Killian Attphys Unavailable Kin Mcmillan RN Attphys Unavailable Jose Alejandro ETHICS OFFICER, Michael Attphys Unavailable JENNYFER PARKER Attphys Unavailable KHLOE BOX Attphys Unavailable Carlos A FRYE MPH, Laura Merchant Attphys [phone] Dorothy Boss Attphys Unavailable Elton SMITH, Katie Attphys Unavailable Laura Schwartz Attphys Unavailable Tim MURPHY, Brannon Mccartney Attphys Unavailable Steven ETHICS OFFICER, Laine Carreon Attphys Unavailable George MURPHY, Emily Attphys Unavailable Mabel MURPHY, Nay Attphys Unavailable Sanjana De Leon MD Attphys Grzegorz FRYE, Danii Shepard Attphys DANII LANTIGUA Attphys Unavailable Sea SMITH, Abby Attphys Unavailable Marissa Mixon Attphys Unavailable Ady MURPHY, Katie Attphys Unavailable Silvano MURPHY, Delores Attphys Unavailable Anthony FAYE, [place] Abel Attphys Kenisha Gordillo Attphys Unavailable Darvin WICK, Charmaine Howe Attphys Lj FREY, Iman Geronimo Attphys Malou FRYE, Erin Mir Attphys Elsie FRYE, Robina Cummins Attphys [phone] Connie Christensen Attphys Unavailable Eduardo FRYE, Robbie Attphys Chung FRYE, Jerome Ovalle Attphys Dea FRYE, Karey Mcmahan Attphys Sheikh MELVA, Melisa Lamb Attphys Ede RN, Radha Attphys Unavailable IMAN CALHOUN Attphys Unavailable Juan Antonio RN, Servando Attphys Unavailable Alvarez RN, Xu Attphys Unavailable Jere RN, Martha Attphys Unavailable Joel FRYE, Gracie Rosamaria Attphys Laura Emery Attphys Unavailable Gracie MALDONADO ROSAMARIA Attphys Unavailable System, Not In Provider Attphys Unavailable Jaime FRYE, Hiwot Tinoco Attphys Corien FRYE, Melisa Belcher Attphys Eliceo FRYE, Lorna Rayo Attphys Hiwot JOHNSON Attphys Unavailable Kendal FRYE, [facility] Attphys [phone] OZIEL VALDEZ Attphys Unavailable José Miguel FRYE, Oziel Christie Attphys [phone] Reggie FRYE, Yasmin Fermin Attphys Kenisha Rojas Attphys Unavailable VENTURA BREEN Attphys Unavailable Julia FRYE, [place] Renee Attphys Brandon FRYE, Zenon Kaufman Attphys [phone] Evelina FRYE, Audie Attphys Caden FRYE, Melisa Attphys Hemalatha Alfredo Attphys Unavailable BRANDON, ZENON KAUFMAN Attphys Unavailable Anton DUQUE Attphys Unavailable MANKIVAN, INDRA THOMPSONITH Attphys Unavailable BOCCARDO, KIET Attphys Unavailable KEITH JENNYFER Admphys Unavailable KHLOE BOX Admphys Unavailable MEADOWS, ERIN SURESH Admphys Unavailable JOSEFINALORNA VINCENT Admphys Unavailable Yasmin PAREDES Admphys Unavailable OMRANIAN, ALI Admphys Unavailable BRANDON, ZENON KAUFMAN Admphys Unavailable MANKIDY, INDRA BABITH Admphys Unavailable BOCCARDO, KIET Admphys Unavailable Payers Payer Name Policy Type Policy Number Effective Date Expiration Date Anton meneses [facility] EPO [id number] [address], [place] [id number] [id number] 2017 00:00:00 [facility] Ppo [id number] 2018 00:00:00 [facility] Cdc Review Covid19 [id number] [facility] Problems Condition Name Condition Details Condition Category Status Onset Date Resolution Date Last Treatment Date Treating Clinician Comments Source Sepsis Sepsis Disease Active 2019-05-04 00:00:00 [facility] Symptomatic anemia Symptomatic anemia Disease Active 2019-01-17 00:00:0 0 [facility] Tubular adenoma Tubular adenoma Disease Active 2019-01-17 00:00:00 [facility] Rash Rash Disease Active 2019-01-17 00:00:00 [facility] Screening for cancer Screening for cancer Disease Active 00:00:00 [facility] Alcohol use disorder, mild, abuse Alcohol use disorder, mild, ab use Disease Active 2019-01-17 00:00:00 [facility] Pedal edema Pedal edema Disease Active 2019-01-17 00:00:00 [facility] Hepatic encephalopathy Hepatic encephalopathy Disease Active 2019-01-17 00:00:00 [facility] Alcoholic hepatitis Alcoholic hepatitis Disease Active 2019-01-17 00:00 :00 [facility] Alcoholic cirrhosis Alcoholic cirrhosis Disease Active 2018-12-21 00:00 :00 [facility] Sepsis, unspecified organism Sepsis, unspecified organism Disease Active 2018-12-21 00:00:00 [facility] ESRD (end stage renal disease) ESRD (end stage renal disease) Disea se Active 2018-12-21 00:00:00 [facility] Liver failure Liver failure Disease Active 2018-10-16 00:00:00 [facility] Acute blood loss anemia Acute blood loss anemia Disease Active 2018-06-26 00:00:00 [facility] GIB (gastrointestinal bleeding) GIB (gastrointestinal bleeding) Dis ease Active 2018-06-21 00:00:00 [facility] Hemorrhagic shock Hemorrhagic shock Disease Active 2018-06-21 00:00:00 [facility] Hyperbilirubinemia Hyperbilirubinemia Disease Active 2018-06-01 00:00:0 0 [facility] Sinus tachycardia Sinus tachycardia Disease Active 2018-01-28 00:00:00 [facility] Prediabetes Prediabetes Disease Active 2018-01-28 00:00:00 [facility] Jaundice Jaundice Problem Active [facility] Pneumonia Pneumonia Problem Active [facility] Hepatic cirrhosis Problem Active [facility] Hypovolemic shock Problem Active [facility] Obesity Obesity Disease Active [facility] Fatty liver Fatty liver Disease Active [facility] Dark emesis Dark emesis Disease Active [facility] Hypotension due to hypovolemia Hypotension due to hypovolemia Disease Active [facility] Acute renal failure with tubular necrosis Acute renal failure with tubular necrosis Disease Active [facility] ESRD (end stage renal disease) on dialysis ESRD (end s tage renal disease) on dialysis Disease Active [facility] ESRD on hemodialysis ESRD on hemodialysis Disease Active [facility] History of Past Illness Condition Name Condition Details Condition Category Status Onset Date Resolution Date Last Treatment Date Treating Clinician Comments Source Respiratory center failure Respiratory center failure Disease Resolved 2018-06-01 00:00:00 2018-12-23 00:00:00 2018-12-23 18:37:49 [facility] Acute respiratory failure with hypoxia Acute respiratory ericka lure with hypoxia Disease Resolved 2018-06-01 00:00:00 2018-12-23 00:00:00 2018-12-23 18:37:3 7 [facility] ARDS (adult respiratory distress syndrome) ARDS (adult respiratory distress syndrome) Disease Resolved 2018-06-01 00:00:00 2018-12-23 00:00:00 2 18:37:31 [facility] Acute kidney injury Acute kidney injury Disease Resolved 2018-05 00:00:00 2018-12-23 00:00:00 2018-12-23 18:37:33 [facility] Hyponatremia Hyponatremia Disease Resolved 2018-06-01 00:00:00 2 00:00:00 2018-12-23 18:37:52 [facility] Hypertension Hypertension Disease Resolved 2018-12-23 00: 00:00 2018-12-23 18:37:55 [facility] Allergies, Adverse Reactions, Alerts Allergy Name Allergy Type Status Severity Reaction(s) Onset Date Inacti ve Date Treating Clinician Comments Source Prednisone Drug Intolerance Active 2019-05-04 00:00:00 [facility] Ceftriaxone Drug Allergy Active Rash 2019-01-06 00:00:00 [facility] Family History Family Member Diagnosis Comments Start Date Stop Date Source Natural brother No Known Problem [facility] Natural father Hypertension [facility] Natural mother Hypertension [facility] Natural son No Known Problem [facility] Social History Social Habit Start Date Stop Date Quantity Comments Source Sex Assigned At [facility] Tobacco use and exposure 2019-06-17 00:00:00 2019-06-17 00:00:00 Maci zelaya used [facility] Alcohol intake 2019-06-17 00:00:00 2019-06-17 00:00:00 Current non-drinker of alcohol (finding) [facility] Alcohol Comment 2019-02-04 00:00:00 2019-02-04 00:00:00 quit in 9 [facility] Smoking Status Start Date Stop Date Source Never smoker [facility] Medications Ordered Medication Name Filled Medication Name Start Date Stop Da te Current Medication? Ordering Clinician Indication Dosage Frequency Signature (SIG) Comments Components Source Cholestyramine (Cholestyramine Light Packet) 4 Gm PACK Cholestyramine (Cholestyramine Light Packet) 4 Gm PACK 2019-11-06 18:18:00 Yes 4 Every 6 Hours [facility] Lactulose Lactulose 2019-11-06 18:18:00 Yes 20 Three Times A Day [facility] Rifaximin (Xifaxan) 550 Mg TABLET Rifaximin (Xifaxan) 550 Mg TABLET 2019-11-06 18:18:00 Yes 550 Twice A Day [facility] Sodium Bicarbonate Sodium Bicarbonate 2019-11-06 18:18:00 Yes 1300 Twice A Day [facility] Vancomycin Hcl (Vancocin Hcl) 250 Mg CAPSULE Vancomyci n Hcl (Vancocin Hcl) 250 Mg CAPSULE 2019-11-06 18:18:00 Yes 500 Every 6 Hours [facility] Prednisone Prednisone 2019-10-21 10:46:00 Yes 40 [place] ly [facility] Propranolol Hcl Propranolol Hcl 2019-10-21 10:46:00 Yes 10 Twice A Day [facility] Sucralfate (Carafate) 1 Gm TABLET Sucralfate (Carafate) 1 Gm TABLET 2019-10-21 10:46:00 Yes 1 Before Meals And At Bedtime [facility] Pantoprazole Sodium (Protonix) 40 Mg TABLET. Pantopr azole Sodium (Protonix) 40 Mg TABLET. 2019-09-27 10:11:00 Yes 40 Before [place] kfast [facility] traZODone (DESYREL) 50 MG tablet 2019-06-17 10:52:35 Yes 50mg QD Take 50 mg by mouth nightly. [facility] furosemide (LASIX) 10 mg/mL solution 2019-06-17 10:48:04 Ye s QD Take by mouth daily. [facility] colchicine (COLCRYS) 0.6 mg tablet 2019-05-11 00:00:00 202 23:59:00 No .6mg QD Take 1 tablet (0.6 mg total) by mouth da gunner for 11 days. [facility] FUROSEMIDE ORAL 2019-05-10 14:52:14 2019-05-10 00:00:00 No 80mg QD Take 80 mg by mouth daily . [facility] pantoprazole (PROTONIX) 40 MG tablet 2019-05-10 00:00:00 Ye s 40mg Q.5D Take 1 tablet (40 mg total) by mouth 2 (two) times daily. [facility] UNKNOWN 2019-02-04 09:37:31 2019-02-04 00:00:00 No naus ea as needed Pt takes dissolving tablet for nausea, unsure of name . [facility] UNKNOWN 2019-02-04 09:37:31 2019-02-04 00:00:00 No QD daily Pt states he takes a medication to suppress his alcohol cravings . [facility] thiamine 100 MG tablet 2019-02-04 00:00:00 Yes Portal hypertension (HCC) 100mg QD Take 1 tablet (100 mg total) by mouth daily. [facility] hydrOXYzine (ATARAX) 25 MG tablet 2019-01-16 00:00:00 2018 23:59:00 No Pruritus 25mg Take 1 tablet (2 5 mg total) by mouth every 6 (six) hours as needed for Itching for up to 30 days. [facility] traMADol (ULTRAM) 50 mg tablet 2019-01-06 00:00:00 Yes TK 1 T PO Q 8 H PRN P [facility] diphenhydrAMINE-zinc acetate (BENADRYL EXTRA STRENGTH) 2-0.1 % cream 2019-01-06 00:00:00 2020-01-06 23:59:00 No Apply topically 3 (three) times daily as needed for Itching. [facility] thiamine 100 MG tablet 2018-12-27 00:00:00 2019-02-04 00:00:00 N o 100mg QD Take 1 tablet (100 mg total) by mouth daily. [facility] traZODone (DESYREL) 50 MG tablet 2018-12-26 09:59:28 2018-11 00:00:00 No 50mg QD Take 50 mg by mouth nightly. [facility] midodrine (PROAMATINE) 10 MG tablet 2018-12-26 09:59:2 8 2018-12-26 00:00:00 No 10mg Q.[id number] Take 10 mg by mouth 3 (th ree) times daily. [facility] ondansetron (ZOFRAN-ODT) 4 MG disintegrating tablet 2018-12-26 09:59:28 2018-12-26 00:00:00 No 4mg Take 4 mg by mouth every 6 (six) hours as needed for Nausea. [facility] lactulose (CHRONULAC) 20 gram/30 mL solution 2018-12-26 00:00:00 Yes 30g Q.[id number] Take 45 mLs (30 g total) by mouth 3 ( three) times daily. [facility] midodrine (PROAMATINE) 10 MG tablet 2018-12-26 00:00:00 Yes 10mg Q.[id number] Take 1 tablet (10 mg total) by mouth 3 ( three) times daily. [facility] phytonadione, vitamin K1, (MEPHYTON) 5 mg tablet 2018-12-26 00:00:00 2019-02-04 00:00:00 No 5mg QD Take 1 tablet (5 mg total) by mouth daily. [facility] ciprofloxacin HCl (CIPRO) 500 MG tablet 00:00:00 2018-12-29 23:59:00 No 500mg QD Take 1 tablet (500 mg total) by mouth daily for 3 days. [facility] folic acid (FOLVITE) 1 MG tablet 2018-11-07 00:00:00 2019-10 23:59:00 No 1mg QD Take 1 tablet (1 mg total) by mouth daily. [facility] pantoprazole (PROTONIX) 40 MG tablet 2018-11-07 00:00: 00 2019-05-10 00:00:00 No 40mg QD Take 1 tablet (40 mg total) by mouth [place]. [facility] lactulose (CHRONULAC) 20 gram/30 mL solution 201 11-05-11 00:00:00 2018-12-26 00:00:00 No 30g Q.[id number] Ta ke 45 mLs (30 g total) by mouth 3 (three) times daily. [facility] ipratropium (ATROVENT) 0.02 % nebulizer solution 2018-11-07 00:00:00 2018-12-26 00:00:00 No .5mg Take 2.5 mLs (0.5 mg total) by nebulization every 6 (six) hours as needed. [facility] levoFLOXacin (LEVAQUIN) IVPB 250 mg in dextrose 5% (D5W) 50 mL 2018-11-07 00:00:00 2018-12-26 00:00:00 No 250mg Q24H Inject 50 mLs (250 mg total) intravenously daily. [facility] melatonin 3 mg Tab tablet 2018-11-07 00:00:00 2018-12-26 00:00:0 0 No 6mg Take 2 tablets (6 mg total) by mouth every night as needed. [facility] octreotide (SANDOSTATIN) 100 mcg/mL Soln 2018-10 00:00:00 2018-12-26 00:00:00 No 100ug Q.[id number] In ject 1 mL (100 mcg total) subcutaneously 3 (three) times daily. [facility] phytonadione 0.8 mg/mL Soln ORAL solution 11-07 00:00:00 2018-12-26 00:00:00 No 5mg QD Take 6.25 mLs (5 mg total) by m outh daily. [facility] thiamine (B-1) 100 mg/mL injection 2018-11-07 00:00:00 11-05-30 00:00:00 No 100mg QD Inject 1 mL (100 mg total) intravenously daily. [facility] traZODone (DESYREL) 50 MG tablet 2018-11-07 00:00:00 2018-11 23:59:00 No 50mg Take 1 tablet (50 mg total) by mouth every night as needed for up to 30 days. [facility] midodrine (PROAMATINE) 5 MG tablet 2018-11-07 00:00:00 11-06-11 23:59:00 No 5mg Q.[id number] Take 1 ta blet (5 mg total) by mouth 3 (three) times daily for 30 days. [facility] multivitamin (THERAGRAN) tablet 2018-07-10 00:00:00 23:59:00 No 1{tbl} QD Take 1 tablet by mouth daily. [facility] Folic Acid Folic Acid Yes 1 Daily [facility] Furosemide Furosemide Yes [facility] Hydroxyzine Hcl Hydroxyzine Hcl Yes [facility] Midodrine Hcl Midodrine Hcl Yes [facility] Ondansetron Hcl Ondansetron Hcl Yes 4 [facility] Tramadol Hcl (Ultram 50MG*) 50 Mg TAB Tramadol Hcl (Ultram 50MG*) 5 0 Mg TAB Yes [facility] Trazodone Hcl Trazodone Hcl Yes 50 Bedtime [facility] Hydrochlorothiazide Hydrochlorothiazide 2019-10-21 00:00:00 No 25 Daily [facility] Pantoprazole Sodium (Protonix) 40 Mg TABLET. Pantopr azole Sodium (Protonix) 40 Mg TABLET. 2019-10-21 00:00:00 No [facility] Nifedipine (Nifedipine Er) 30 Mg TAB.ER.24 Nifedipine (Nifedipine Er) 30 Mg TAB.ER.24 2019-10-18 00:00:00 No 30 Twice A Day [facility] Levofloxacin (Levaquin) 500 Mg TABLET Levofloxacin (Levaquin) 50 0 Mg TABLET 2018-05-27 00:00:00 No 500 Daily [facility] Olmesartan Med/Amlodipine/Hctz (Tribenzor 40-5-12.5 Mg Tablet) 1 Each TABLET Olmesartan Med/Amlodipine/Hctz (Tribenzor 40-5-12.5 Mg Tablet) 1 Each TABLET 2018-05-27 00:00:00 No 1 Daily [facility] Pantoprazole Sodium (Protonix) 40 Mg TABLET. Pantopr azole Sodium (Protonix) 40 Mg TABLET. 2018-05-27 00:00:00 No 40 Daily [facility] Vital Signs Vital Name Observation Time Observation Value Comments Source Body Temperature 2019-11-27 11:06:00 98.5 [degF] [facility] Weight 2019-11-26 01:40:00 198.44 [lb_av] [facility] BMI (Body Mass Index) 2019-11-26 01:40:00 26.9 kg/m2 [facility] Body Temperature 2019-11-06 15:00:00 97.9 [degF] [facility] Weight 2019-11-04 07:00:00 215.06 [lb_av] [facility] BMI (Body Mass Index) 2019-11-04 07:00:00 30.0 kg/m2 [facility] Body Temperature 2019-10-21 15:34:00 97.7 [degF] [facility] BMI (Body Mass Index) 2019-10-18 16:11:00 30.7 kg/m2 [facility] Weight 2019-10-18 12:15:00 226 [lb_av] [facility] Body Temperature 2019-09-27 17:18:00 99.0 [degF] [facility] BMI (Body Mass Index) 2019-09-27 09:42:00 26.6 kg/m2 [facility] Weight 2019-09-26 13:55:00 196 [lb_av] [facility] Systolic blood pressure 2019-05-13 10:59:00 115 mm[Hg] [facility] Diastolic blood pressure 2019-05-13 10:59:00 69 mm[Hg] [facility] Heart rate 2019-05-13 10:59:00 90 /min [facility] Body temperature 2019-05-13 10:59:00 36.94 Dariel [facility] Respiratory rate 2019-05-13 10:59:00 18 /min [facility] Body height 2019-05-13 10:59:00 180.3 cm [facility] Body weight 2019-05-13 10:59:00 86.229 kg [facility] BMI 2019-05-13 10:59:00 26.51 kg/m2 [facility] Oxygen saturation in Arterial blood by Pulse oximetry 05-12 10:59:00 100 /min [facility] r Procedures Procedure Date / Time Performed Performing Clinician [facility] e CT of abdomen and pelvis without contrast 2019-11-26 00:00:00 [facility] US Abdomen limited 2019-11-06 00:00:00 [facility] US guided paracentesis 2019-11-06 00:00:00 [facility] INSPECTION OF UPPER INTESTINAL TRACT, ENDO 2019-11-05 00:00:00 [facility] US guided paracentesis 2019-11-02 00:00:00 [facility] PERFORMANCE OF URINARY FILTRATION, <6 HRS/DAY 2019-11-02 00:00:0 0 [facility] TRANSFUSE NONAUT FRESH PLASMA IN CENTRAL VEIN, PERC 2019-11-02 0 0:00:[address] [facility] [address] of abdomen and pelvis without contrast 2019-11-01 00:00:00 [facility] TRANSFUSE NONAUT RED BLOOD CELLS IN CENTRAL VEIN, PERC 5 00:00:00 [facility] PERFORMANCE OF URINARY FILTRATION, <6 HRS/DAY 2019-10-21 00:00:0 0 [facility] US guided paracentesis 2019-10-19 00:00:00 [facility] Anton [facility] DRAINAGE OF PERITONEAL CAVITY, PERCUTANEOUS APPROACH 2019-10-19 00:00:00 [facility] TRANSFUSE NONAUT FROZEN PLASMA IN PERIPH VEIN, PERC 2019-10-19 0 0:00:00 [facility] US Abdomen limited 2019-10-18 00:00:00 [facility] CT of abdomen and pelvis without contrast 2019-10-18 00:00:00 [facility] TRANSFUSE NONAUT RED BLOOD CELLS IN PERIPH VEIN, PERC 2019-10-18 00:00:00 [facility] PERFORMANCE OF URINARY FILTRATION, <6 HRS/DAY 2019-10-18 00:00:0 0 [facility] PERFORMANCE OF URINARY FILTRATION, <6 HRS/DAY 2019-09-27 00:00:0 0 [facility] TRANSFUSE NONAUT RED BLOOD CELLS IN PERIPH VEIN, PERC 2019-09-27 00:00:00 [facility] US abdomen complete 2019-09-26 00:00:00 [facility] PERFORMANCE OF URINARY FILTRATION, <6 HRS/DAY 2019-09-26 00:00:0 0 [facility] TRANSFUSE NONAUT RED BLOOD CELLS IN PERIPH VEIN, PERC 2019-09-26 00:00:00 [facility] MR ABDOMEN WITH & WITHOUT IV CONTRAST 2019-05-23 12:08:00 Stribl ing, Rise J. [facility] BASIC METABOLIC PANEL (7) 2019-05-23 09:03:00 Devyn Lantigua [facility] HEPATIC FUNCTION PANEL 2019-05-23 09:03:00 Devyn Lantigua [facility] PROTHROMBIN TIME/INR 2019-05-23 09:03:00 Devyn Lantigua [facility] CBC W/PLT COUNT & AUTO DIFFERENTIAL 2019-05-23 09:03:00 Alfred Lantigua [facility] RHYTHM STRIP - SCAN 2019-05-15 16:11:24 Provider, Default Scanni [facility] MISCELLANEOUS LAB ORDER 2019-05-14 09:30:00 Elsie Placido Hernandez chance [facility] PROTHROMBIN TIME/INR 2019-05-14 09:30:00 Devyn Lantigua [facility] HEPATIC FUNCTION PANEL 2019-05-14 09:30:00 Devyn Lantigua [facility] BASIC METABOLIC PANEL (7) 2019-05-14 09:30:00 Devyn Lantigua [facility] BILIRUBIN, DIRECT 2019-05-14 09:30:00 Devyn Lantigua [facility] CBC W/PLT COUNT & AUTO DIFFERENTIAL 2019-05-14 09:30:00 Alfred Lantigua [facility] REPORT OF PROCEDURE - ENDOSCOPY SCAN 2019-05-13 11:03:24 Pro vider, Default Scanning [facility] RHYTHM STRIP - SCAN 2019-05-12 15:11:01 Provider, Default Scanni [facility] REPORT OF PROCEDURE - ENDOSCOPY SCAN 2019-05-12 15:10:56 Pro vider, Default Scanning [facility] CARDIAC CATH REPORT - SCAN 2019-05-12 15:10:54 Provider, Default Scanning [facility] MAGNESIUM 2019-05-10 05:22:00 Carlos Lyons [facility] PHOSPHORUS 2019-05-10 05:22:00 Carlos Lyons [facility] NM MYOCARDIAL PERFUSION PET/CT (REST & STRESS) 2019-05-09 14:55: 00 Robbie New [facility] TREADMILL TOLERANCE(NON-NUCLEAR TREADMILL) 2019-05-09 14:24: 27 Unknown, Hl7 Doctor [facility] HEMODIALYSIS INPATIENT 2019-05-09 07:47:24 Rosamaria Maldonado [facility] MAGNESIUM 2019-05-09 05:35:00 Carlos Lyons [facility] PHOSPHORUS 2019-05-09 05:35:00 Serena Carlos [facility] COMPREHENSIVE METABOLIC PANEL 2019-05-09 05:35:00 Kate Guido [facility] CBC W/PLT COUNT & AUTO DIFFERENTIAL 2019-05-09 05:35:00 Kate Truong [facility] TRANSFUSION SERVICE REPORT - SCAN 2019-05-08 17:52:07 Provid er, Default Scanning [facility] LIMITED 2D ECHOCARDIOGRAM 2019-05-08 11:40:31 Robbie [facility] PROCALCITONIN 2019-05-08 03:02:00 Serena Banner MAGNESIUM 2019-05-08 03:02:00 Serena Banner PHOSPHORUS 2019-05-08 03:02:00 Serena Banner BASIC METABOLIC PANEL (7) 2019-05-08 03:02:00 Idris Murry ph [facility] CBC W/PLT COUNT & AUTO DIFFERENTIAL 2019-05-08 03:02:00 Indra Munguia [facility] (CELLAVISION MANUAL DIFF) 2019-05-08 03:02:00 Idris Murry [facility] HEMODIALYSIS INPATIENT 2019-05-08 00:48:36 Rosamaria Maldonado [facility] PREPARE LEUKO-REDUCED RBC 2019-05-07 23:54:00 Zamzam Correa [facility] PERIPHERAL VASCULAR REPORT - SCAN 2019-05-07 21:12:27 Provid er, Default Scanning [facility] BODY FLUID CULTURE + GRAM STAIN 2019-05-07 19:20:14 Robbie New [facility] CYTOLOGY 2019-05-07 19:20:00 Robbie New [facility] 2D ECHO W/ DOPPLER (CW/PW/COLOR) 2019-05-07 18:32:29 Coreen New [facility] PERICARDIOCENTESIS 2019-05-07 18:18:00 Robbie New [facility] TRANSFUSION SERVICE REPORT - SCAN 2019-05-07 17:52:09 Provid er, Default Scanning [facility] COMPREHENSIVE METABOLIC PANEL 2019-05-07 06:42:00 Suresh Meadows [facility] CBC W/PLT COUNT & AUTO DIFFERENTIAL 2019-05-07 06:42:00 Isacc Meadows [facility] (CELLAVISION MANUAL DIFF) 2019-05-07 06:42:00 Suresh Meadows [facility] PREPARE LEUKO-REDUCED RBC 2019-05-06 23:54:00 LjJimena [facility] TRANSFUSION SERVICE REPORT - SCAN 2019-05-06 18:02:23 Provid er, Default Scanning [facility] CAROTID DOPPLER BILATERAL 2019-05-06 16:05:00 Karen Carranza Melba [facility] REPORT OF PROCEDURE - ENDOSCOPY URL 2019-05-06 13:43:19 Zainab Alves [facility] 2D ECHO W/ DOPPLER (CW/PW/COLOR) 2019-05-06 13:06:03 Coreen New [facility] UPPER ENDOSCOPY 2019-05-06 10:56:00 Zainab Alves [facility] COMPREHENSIVE METABOLIC PANEL 2019-05-06 04:52:00 Angelic Lomeli [facility] MAGNESIUM 2019-05-06 04:52:00 Zamzam Correa [facility] CBC W/PLT COUNT & AUTO DIFFERENTIAL 2019-05-06 04:52:00 Kin Lomeli [facility] (CELLAVISION MANUAL DIFF) 2019-05-06 04:52:00 Angelic Lomeli er [facility] TRANSFUSE LEUKO-REDUCED RED BLOOD CELLS 2019-05-06 03:24:02 Zamzam Correa [facility] CBC W/PLT COUNT & AUTO DIFFERENTIAL 2019-05-05 21:10:00 Ino Correa [facility] BASIC METABOLIC PANEL (7) 2019-05-05 21:09:00 Zamzam Correa [facility] MAGNESIUM 2019-05-05 21:09:00 Correa [facility] TROPONIN I 2019-05-05 21:09:00 Madeline [facility] ECG 12-LEAD 2019-05-05 20:53:39 Unknown, 7 [facility] ECG 12-LEAD 2019-05-05 20:52:05 Unknown, 7 [facility] ECG 12-LEAD 2019-05-05 19:34:00 Unknown, 7 [facility] ECG 12-LEAD 2019-05-05 19:32:27 Unknown, 7 [facility] TRANSFUSION SERVICE REPORT - SCAN 2019-05-05 17:52:36 Provid er, Default Scanning [facility] HEMODIALYSIS INPATIENT 2019-05-05 15:16:18 Rosamaria Maldonado [facility] HEPATITIS B SURFACE ANTIGEN 2019-05-05 15:02:00 Christopher Maldonado [facility] OCCULT BLOOD, STOOL 2019-05-05 12:07:00 [facility] COMPREH[facility]IVE METABOLIC PANEL 2019-05-05 09:51:00 [facility] RETICULOCYTE COUNT 2019-05-05 09:51:00 [facility] BILIRUBIN, DIRECT 2019-05-05 09:51:00 [facility] 2019-05-05 09:51:00 [facility] IRON, TIBC, % SAT. (WITHOUT FERRITIN) 2019-05-05 09:51:00 [facility] DIRECT AHG (LUMA)/DIRECT ANTONIA 2019-05-05 09:51:00 [facility] ABORH, MANUAL 2019-05-05 09:51:00 [facility] CBC W/PLT COUNT & AUTO DIFFERENTIAL 2019-05-05 09:51:00 Kin Lomeli [facility] TRANSFUSE LEUKO-REDUCED RED BLOOD CELLS 2019-05-05 08:35:39 Lj, [facility] TRANSFUSE LEUKO-REDUCED RED BLOOD CELLS 2019-05-05 01:08:39 Lj, [facility] LACTIC ACID, VENOUS 2019-05-05 00:29:00 Lj, [facility] ECG 12-LEAD 2019-05-05 00:27:17 Unknown, Hl7 Doctor [facility] TYPE AND SCREEN, AUTOMATED 2019-05-04 20:42:00 Lj, Jimena franklin [facility] URINE CULTURE 2019-05-04 19:53:00 Lj, Jimena [facility] URINALYSIS W/ REFLEX URINE CULTURE 2019-05-04 19:53:00 Lj, Terrence lew [facility] LEGIONELLA URINE ANTIGEN 2019-05-04 19:53:00 Lj, [facility] BLOOD CULTURE 2019-05-04 19:29:00 Lj, Jimena Valerio [facility] MAGNESIUM 2019-05-04 19:29:00 Lj, [facility] PHOSPHORUS 2019-05-04 19:29:00 Lj, [facility] B-TYPE NATRIURETIC FACTOR (BNP) 2019-05-04 19:29:00 Lj, [facility] PT/APTT 2019-05-04 19:29:00 Lj, [facility] TROPONIN I 2019-05-04 19:29:00 Lj, [facility] COMPREHENSIVE METABOLIC PANEL 2019-05-04 19:29:00 Lj, Jimena roberts [facility] LACTIC ACID, VENOUS 2019-05-04 19:29:00 Lj, [facility] PROCALCITONIN 2019-05-04 19:29:00 Lj, [facility] CBC W/PLT COUNT & AUTO DIFFERENTIAL 2019-05-04 19:29:00 Emigdio Calhoun [facility] RAPID INFLUENZA A&B SCREEN 2019-05-04 19:28:00 Lj, Jimena franklin [facility] CRITICAL CARE 2019-05-04 18:47:50 Jimena Calhoun [facility] XR CHEST 1 VIEW PORTABLE/BEDSIDE 2019-05-04 18:05:00 Anderson Calhoun [facility] BASIC METABOLIC PANEL (7) 2019-04-07 09:34:00 Devyn Lantigua [facility] HEPATIC FUNCTION PANEL 2019-04-07 09:34:00 Devyn Lantigua [facility] PROTHROMBIN TIME/INR 2019-04-07 09:34:00 Devyn Lantigua [facility] CBC W/PLT COUNT & AUTO DIFFERENTIAL 2019-04-07 09:34:00 Alfred Lantigua [facility] BASIC METABOLIC PANEL (7) 2019-03-14 10:32:00 Devyn Lantigua [facility] HEPATIC FUNCTION PANEL 2019-03-14 10:32:00 Devyn Lantigua [facility] PROTHROMBIN TIME/INR 2019-03-14 10:32:00 Devyn Lantigua [facility] CBC W/PLT COUNT & AUTO DIFFERENTIAL 2019-03-14 10:32:00 Alfred Lantigua [facility] BILIRUBIN, DIRECT 2019-03-04 10:00:00 Devyn Lantigua [facility] COMPREHENSIVE METABOLIC PANEL 2019-03-04 10:00:00 Devyn Lantigua [facility] CBC W/PLT COUNT & AUTO DIFFERENTIAL 2019-03-04 10:00:00 Alfred Lantigua [facility] PROTHROMBIN TIME/INR 2019-03-04 09:55:00 Devyn Lantigua [facility] BILIRUBIN, DIRECT 2019-02-03 10:13:00 Perri Fenton [facility] COMPREHENSIVE METABOLIC PANEL 2019-02-03 10:13:00 Perri Fenton [facility] PROTHROMBIN TIME/INR 2019-02-03 10:12:00 Perri Fenton [facility] CBC W/PLT COUNT & AUTO DIFFERENTIAL 2019-02-03 10:12:00 Perri Fenton [facility] US PELVIS WITH DOPPLER 2019-02-03 09:35:00 Rosamaria Maldonado [facility] RHYTHM STRIP - SCAN 2019-01-21 11:42:13 Provider, Default [facility] RHYTHM STRIP - SCAN 2019-01-20 16:02:13 Provider, Default [facility] RHYTHM STRIP - SCAN 2019-01-20 16:02:12 Provider, Default [facility] TRANSFUSION SERVICE REPORT - SCAN 2019-01-19 18:00:57 Provid er, Default Scanning [facility] PREPARE LEUKO-REDUCED RBC 2019-01-18 23:55:00 Perri Fenton [facility] TRANSFUSION SERVICE REPORT - SCAN 2019-01-18 18:03:07 Provid er, Default Scanning [facility] FERRITIN 2019-01-18 17:47:[address] [facility] IRON, TIBC, % SAT. (WITHOUT FERRITIN) 2019-01-18 17:47:[address] [facility] LACTATE DEHYDROGENASE (LDH) 2019-01-18 17:47:[address] [facility] HAPTOGLOBIN 2019-01-18 17:47:[address] [facility] VITAMIN B12 AND FOLATE 2019-01-18 17:47:[address] [facility] ULTRAFILTRATION HD CRRT 2019-01-18 15:13:25 Roseanne Zelaya [facility] HEMOGLOBIN AND HEMATOCRIT 2019-01-18 11:17:00 Ye Pool [facility] CBC (HEMOGRAM ONLY) 2019-01-18 02:51:00 Ye Pool [facility] TRANSFUSE LEUKO-REDUCED RED BLOOD CELLS 2019-01-17 23:33:32 Ye Pool Benji [facility] TRANSFUSE LEUKO-REDUCED RED BLOOD CELLS 2019-01-17 22:39:14 Ye Pool [facility] HEMODIALYSIS INPATIENT 2019-01-17 21:29:31 Garcia Roseanne [facility] TYPE AND SCREEN, AUTOMATED 2019-01-17 15:35:00 Perri Fenton [facility] HLA TYPING CI 2019-01-16 15:56:00 Rosamaria Maldonado [facility] HLA TYPING CII 2019-01-16 15:56:00 Rosamaria Maldonado [facility] FLOW PRA CLASS I WITH REFLEX TO ANTIBODY SPECIFICITY 2018-12 15:56:00 Rosamaria Maldonado [facility] FLOW PRA CLASS II WITH REFLEX TO ANTIBODY SPECIFICITY 2018-02 15:56:00 Onelia Maldonadoherine Fredy [facility] BASIC METABOLIC PANEL (7) 2019-01-16 15:56:00 Carley [place] [facility] HEPATIC FUNCTION PANEL 2019-01-16 15:56:00 Carley Boston [facility] PROTHROMBIN TIME/INR 2019-01-16 15:56:00 Carley [place] [facility] ALPHA FETOPROTEIN (AFP), TUMOR MARKER 2019-01-16 15:56:00 Carley [place] Charmaine [facility] AB SPECIFICITY CLASS I 2019-01-16 15:56:00 Rosamaria Maldonado [facility] CBC W/PLT COUNT & AUTO DIFFERENTIAL 2019-01-16 15:56:00 Frederick [place] Charmaine [facility] RHYTHM STRIP - SCAN 2019-01-08 09:10:11 Provider, Default Scaniman manjarrez [facility] TRANSFUSION SERVICE REPORT - SCAN 2019-01-06 17:50:45 Provid er, Default Scanning [facility] MISCELLANEOUS LAB ORDER 2019-01-06 06:01:00 Erik De Leon [facility] CBC (HEMOGRAM ONLY) 2019-01-06 06:01:00 Jeny Paredes V. [facility] BASIC METABOLIC PANEL (7) 2019-01-06 06:01:00 Reggie Rjjocelyn Hoffman [facility] MAGNESIUM 2019-01-06 06:01:00 [facility]R 2019-01-06 06:01:00 Reggie Rjsyosset IshFredy [facility] HEPATIC FUNCTION PANEL 2019-01-06 06:01:00 Reggie RjJerold [facility] PREPARE LEUKO-REDUCED RBC 2019-01-05 23:54:00 Vimal Breen [facility] TRANSFUSION SERVICE REPORT - SCAN 2019-01-05 17:50:34 Provid er, Default Scanning [facility] CBC (HEMOGRAM ONLY) 2019-01-05 04:30:00 Reggie [facility] BASIC METABOLIC PANEL (7) 2019-01-05 04:30:00 Reggie RjJerold [facility] MAGNESIUM 2019-01-05 04:30:00 [facility] HEPATIC FUNCTION PANEL 2019-01-05 04:30:00 Reggie [facility] PROTHROMBIN TIME/INR 2019-01-05 04:30:00 Reggie [facility] PREPARE LEUKO-REDUCED RBC 2019-01-04 23:54:00 Pratik Valdez [facility] TRANSFUSION SERVICE REPORT - SCAN 2019-01-04 17:53:27 Provid er, Default Scanning [facility] DRUG SCREEN, URINE, COMPREHENSIVE 2019-01-04 17:39:00 Laine Roper [facility] DRUG SCREEN, URINE, TRANSPLANT 2019-01-04 17:39:00 Jacquelin [facility] TRANSFUSE LEUKO-REDUCED RED BLOOD CELLS 2019-01-04 14:09:28 Vimal Breen [facility] ETHANOL 2019-01-04 09:42:00 Kai Roper [facility] BASIC METABOLIC PANEL (7) 2019-01-04 04:07:00 Vimal Breen [facility] HEPATIC FUNCTION PANEL 2019-01-04 04:07:00 Vimal Breen [facility] CBC W/PLT COUNT & AUTO DIFFERENTIAL 2019-01-04 04:07:00 Hatf franc Vimal Burgess [facility] TRANSFUSE LEUKO-REDUCED RED BLOOD CELLS 2019-01-04 01:55:28 Pratik Valdez [facility] TYPE AND SCREEN, AUTOMATED 2019-01-03 21:56:00 Pratik Valdez [facility] BASIC METABOLIC PANEL (7) 2019-01-03 21:54:00 Pratik Valdez [facility] HEPATIC FUNCTION PANEL 2019-01-03 21:54:00 Pratik Valdez [facility] PT/APTT 2019-01-03 21:54:00 Pratik Valdez [facility] CBC W/PLT COUNT & AUTO DIFFERENTIAL 2019-01-03 21:54:00 Kin Valdez [facility] REPORT OF PROCEDURE - ENDOSCOPY SCAN 2018-12-31 12:52:49 Pro vider, Default Scanning [facility] TRANSFUSION SERVICE REPORT - SCAN 2018-12-27 18:02:58 Provid er, Default Scanning [facility] RHYTHM STRIP - SCAN 2018-12-27 16:04:17 Provider, Default Scanni [facility] PREPARE LEUKO-REDUCED RBC 2018-12-26 23:54:00 Audie Hoyt CH I [facility] TRANSFUSION SERVICE REPORT - SCAN 2018-12-26 18:02:50 Provid er, Default Scanning [facility] VANCOMYCIN LEVEL, RANDOM 2018-12-26 03:56:00 Maurice Stern [facility] BASIC METABOLIC PANEL (7) 2018-12-26 03:56:00 Landy Springer [facility] MAGNESIUM 2018-12-26 03:56:00 AnahicareLandy amin [facility] PHOSPHORUS 2018-12-26 03:56:00 Ciccarello [facility] HAPTOGLOBIN 2018-12-26 03:56:00 Audie Hoyt [facility] HEPATIC FUNCTION PANEL 2018-12-26 03:56:00 [facility]elin [facility] CBC W/PLT COUNT & AUTO DIFFERENTIAL 2018-12-26 03:56:00 Anahicarel bouchra [facility] PERIPHERAL VASCULAR REPORT - SCAN 2018-12-25 21:23:01 Provid er, Default Scanning [facility] TRANSFUSE LEUKO-REDUCED RED BLOOD CELLS 2018-12-25 11:12:26 Carlene redmond Audie [facility] TYPE AND SCREEN, AUTOMATED 2018-12-25 08:51:00 Audie Hoyt [facility] BLOOD CULTURE 2018-12-25 08:25:00 Sydney Vasquez [facility] BASIC METABOLIC PANEL (7) 2018-12-25 03:46:00 Gian [facility] MAGNESIUM 2018-12-25 03:46:00 Gian [facility] PHOSPHORUS 2018-12-25 03:46[facility] 2018-12-25 03:46:00 Placido Zimmerman [facility] PROTHROMBIN TIME/INR 2018-12-25 03:46:00 Placido Zimmerman [facility] LACTATE DEHYDROGENASE (LDH) 2018-12-25 03:46:00 Jacquelin [facility] CBC W/PLT COUNT & AUTO DIFFERENTIAL 2018-12-25 03:46:00 Sharad shook [facility] VENOUS DOPPLER LEGS BILATERAL 2018-12-24 18:55:00 Evelina [facility] TRANSFUSION SERVICE REPORT - SCAN 2018-12-24 18:02:36 Provid er, Default Scanning [facility] BASIC METABOLIC PANEL (7) 2018-12-24 03:18:00 Gian [facility] MAGNESIUM 2018-12-24 03:18:00 Ciccarellrafaela [facility] PHOSPHORUS 2018-12-24 03:18:00 Ciccarello [facility] CBC W/PLT COUNT & AUTO DIFFERENTIAL 2018-12-24 03:18:00 Ciccarel bouchra [facility] PREPARE LEUKO-REDUCED RBC 2018-12-23 23:54:00 Omero Moura [facility] HEMODIALYSIS INPATIENT 2018-12-23 23:25:30 Adri Soler CH I [facility] CBC (HEMOGRAM ONLY) 2018-12-23 20:04:00 Maurice Stern [facility] TRANSFUSION SERVICE REPORT - SCAN 2018-12-23 18:01:02 Provid er, Default Scanning [facility] BASIC METABOLIC PANEL (7) 2018-12-23 04:01:00 Ciccarellrafaela [facility] MAGNESIUM 2018-12-23 04:01:00 Ciccarello [facility] PHOSPHORUS 2018-12-23 04:01[facility] VANCOM[facility]EV[facility], RANDOM 2018-12-23 04:01:00 Ian Shmuel [facility] HEPATITIS B SURFACE ANTIGEN 2018-12-23 04:01:00 Adri Soler [facility] CBC W/PLT COUNT & AUTO DIFFERENTIAL 2018-12-23 04:01:00 Ciccarel bouchra [facility] PREPARE LEUKO-REDUCED RBC 2018-12-22 23:54:00 Víctor Breen [facility] CT LOWER EXTREMITY WITHOUT IV CONTRAST RIGHT 2018-12-22 21:0 4:00 Omero Moura [facility] TRANSFUSION SERVICE REPORT - SCAN 2018-12-22 18:01:22 Provid er, Default Scanning [facility] VANCOMYCIN LEVEL, TROUGH 2018-12-22 16:26:00 Shmuel Sosa winifred [facility] CBC (HEMOGRAM ONLY) 2018-12-22 16:26:00 Christy New [facility] TRANSFUSE LEUKO-REDUCED RED BLOOD CELLS 2018-12-22 11:21:40 Omero Moura [facility] XR CHEST 1 VIEW PORTABLE/BEDSIDE 2018-12-22 05:29:00 [facility] BASIC METABOLIC PANEL (7) 2018-12-22 03:56[facility] MAGNESIUM 2018-12-22 03:56:00 Ciccarebrennan [facility] PHOSPHORUS 2018-12-22 03:56:00 [facility] LACTIC ACID, VENOUS 2018-12-22 03:56:00 [facility] CBC W/PLT COUNT & AUTO DIFFERENTIAL 2018-12-22 03:56:00 Syedal bouchra [facility] FIBRINOGEN 2018-12-22 03:55:00 Shmuel Sosa [facility] HEMOGLOBIN AND HEMATOCRIT 2018-12-21 08:29:00 [facility] TRANSFUSE LEUKO-REDUCED RED BLOOD CELLS 2018-12-21 07:30:55 Julia [facility] POCT-LACTIC ACID, VENOUS 2018-12-21 04:01:00 Víctor Breen Ma [facility] BLOOD CULTURE 2018-12-21 03:04:00 Víctor Breen [facility] AMMONIA 2018-12-21 02:48:00 Víctor Breen [facility] PROCALCITONIN 2018-12-21 02:48:00 Víctor Breen [facility] POCT-LACTIC ACID, VENOUS 2018-12-21 02:01:00 Víctor Breen Ma [facility] BLOOD CULTURE 2018-12-21 01:54:00 Víctor Breen [facility] COMPREHENSIVE METABOLIC PANEL 2018-12-21 01:53:00 [place], [place] [facility] TROPONIN I 2018-12-21 01:53:00 [facility] PT/APTT 2018-12-21 01:53:00 [place] [facility] MAGNESIUM 2018-12-21 01:53:00 [facility] TYPE AND SCREEN, AUTOMATED 2018-12-21 01:53:00 [place] [facility] CBC W/PLT COUNT & AUTO DIFFERENTIAL 2018-12-21 01:53:00 [place] [facility] XR CHEST 1 VIEW PORTABLE/BEDSIDE 2018-12-21 01:39:00 [place] [facility] XR KNEE RIGHT COMPLETE (4 VIEWS) 2018-12-21 01:39:00 [place] [facility] ECG 12-LEAD 2018-12-21 01:18:37 Unknown, Hl7 Doctor [facility] CRITICAL CARE 2018-12-21 01:10:14 [place] [facility] Plan of Care Planned Activity Planned Date Details Comments Source Future Scheduled Test 2021-06-18 00:00:00 Lipid panel (proce dure) [code = 59819601] [facility] Future Scheduled Test 2019-11-27 00:00:00 IMM Influenza Seas onal Nov to April (>/= 19 yrs) [code = IMM Influenza Seasonal Nov to April (>/= 19 yrs)] [facility] Future Scheduled Test 2019-10-28 00:00:00 INFLUENZA VACCINE (#1) [code = INFLUENZA VACCINE (#1)] [facility] r Instructions Anemia [facility] Encounters Start Date/Time End Date/Time Encounter Type Admission Type Attendi [facility] Facility Care Department Encounter ID Source 2018-01-28 08:27:07 Inpatient [facility] [id number] [facility] 2018-01-28 01:10:06 Inpatient [facility] [id number] [facility] 2018-01-27 00:00:00 Inpatient [facility] [id number] [facility] 2018-01-25 00:00:00 [place] [id number] [facility] 2019-11-26 11:21:00 2019-11-26 11:21:00 Admitted Inpatient 1 JENNYFER PARKER [facility] [id number] [facility] 2019-11-01 22:00:00 2019-11-06 19:30:00 Discharged Inpatient 1 JENNYFER PARKER [facility] [id number] [facility] 2019-10-18 10:09:00 2019-10-21 16:45:00 Discharged Inpatient 1 KHLOE BOX [facility] [id number] [facility] wards - Patients [facility] 2019-09-26 18:04:00 2019-09-27 19:03:00 Discharged Inpatient 1 KHLO[address] [facility] [id number] [facility] 2019-01-09 00:00:00 2019-01-09 00:00:00 Outpatient [facility] [id number] [facility] 2018-10-16 12:41:00 2018-10-16 12:41:00 Registered Emergency Room [address] [facility] [id number] [facility] 2018-09-05 00:00:00 2018-09-05 00:00:00 Outpatient [facility] [id number] [facility] 2018-06-19 00:00:00 2018-06-19 00:00:00 Outpatient [facility] [id number] [facility] 2018-05-27 18:25:00 2018-06-01 07:30:00 Discharged Inpatient [address] [facility] [id number] [facility] 2018-01-30 00:00:00 2018-01-30 00:00:00 Outpatient [facility] [id number] [facility] 2018-01-29 00:00:00 2018-01-29 00:00:00 Outpatient [facility] [id number] [facility] 2018-01-24 21:17:42 2018-01-24 21:17:42 Emergency [facility] [id number] [facility] 2018-01-24 20:24:34 2018-01-24 20:24:34 Emergency [facility] [id number] [facility] 2018-01-24 17:21:24 2018-01-24 17:21:24 Inpatient [facility] [id number] [facility] Results Test Description Test Time Test Comments Results Result Comments Source Blood leukocytes automated count (number/volume) 2019-11-27 05:14:00 Test Item White Blood Count (test code = 6690-2) 16.04 4.8-10.8 [facility] (number/volume)2019-11-27 05:14:00* Test Item Value Reference Range Interpretation Comments Red Blood Count (test code = 789-8) 2.93 4.3-5.7 [facility] (moles/volume)2019-11-27 05:14:00* Test Item Value Reference Range Interpretation Comments Hemoglobin (test code = 63776-6) 9.4 14.0-18.0 [facility] hematocrit (volume fraction)2019-11-27 05:14:00* Test Item Value Reference Range Interpretation Comments Hematocrit (test code = 4544-3) 26.4 38.2-49.6 [facility] mean corpuscular arlnur9547-35-44 05:14:00* Test Item Value Reference Range Interpretation Comments Mean Corpuscular Volume (test code = 787-2) 90.1 81-99 [facility] mean corpuscular hemoglobin (mass per erythrocyte)2019-11-27 05:14:00* Test Item Value Reference Range Interpretation Comments Mean Corpuscular Hemoglobin (test code = 785-6) 32.1 28-32 [facility] HospitalAutomated erythrocyte mean corpuscular hemoglobin concentration measurement (mass/volume)2019-11-27 05:14:00* Test Item Value Reference Range Interpretation Comments Mean Corpuscular Hemoglobin Concent (test code = 786-4) 35.6 31-35 [facility] HospitalRDW VuuAz-Mak6566-36-01 05:14:00* Test Item Value Reference Range Interpretation Comments Red Cell Distribution Width (test code = 58980-8) 18.9 11.7 -14.4 [facility] HospitalAutomated blood platelet count (count/volume)2019-11-27 05:14:00* Test Item Value Reference Range Interpretation Comments Platelet Count (test code = 777-3) 36 140-360 Results repeated and called to ADAMS SHEEHAN RN at 0558 on 11/27/19 by Al stahl. Read back and verified.[facility] HospitalAutomated blood segmented neutrophil count as percentage of total hjommivqsl5101-69-05 05:14:00* Test Item Value Reference Range Interpretation Comments Neutrophils (%) (Auto) (test code = 88139-9) 89.7 38.7-80.0 [facility] blood lymphocyte count as percentage ot total cpguzepdyf3970-89-53 05:14:00* Test Item Value Reference Range Interpretation Comments Lymphocytes (%) (Auto) (test code = 736-9) 3.9 18.0-39.1 [facility] HospitalAutomated blood monocyte count as percentage of total bstnsfxlko3011-43-41 05:14:00* Test Item Value Reference Range Interpretation Comments Monocytes (%) (Auto) (test code = 5905-5) 5.1 4.4-11.3 [facility] HospitalAutunc health pardeeed blood eosinophil count as percentage of total vxlqnvbrdf0663-59-91 05:14:00* Test Item Value Reference Range Interpretation Comments Eosinophils (%) (Auto) (test code = 713-8) 0.1 0.0-6.0 [facility] HospitalAutomated blood basophil count as percentage of total mpgbfwjpab7093-80-43 05:14:00* Test Item Value Reference Range Interpretation Comments Basophils (%) (Auto) (test code = 706-2) 0.1 0.0-1.0 [facility] HospitalFluoroscopic procedure less than one hour qhhodmho9193-21-57 05:14:00* Test Item Value Reference Range Interpretation Comments IM GRANULOCYTES % (test code = IM GRANULOCYTES %) 1.1 0.0- 1.0 [facility] HospitalAutomated blood neutrophil count 2019-11-27 05:14:00* Test Item Value Reference Range Interpretation Comments Neutrophils # (Auto) (test code = 751-8) 14.4 2.1-6.9 [facility] HospitalBlmonticello hospital lymphocytes count (number/volume) 2019-11-27 05:14:00* Test Item Value Reference Range Interpretation Comments Lymphocytes # (Auto) (test code = 29418-5) 0.6 1.0-3.2 [facility] monocytes automated count (number/volume)2019-11-27 05:14:00* Test Item Value Reference Range Interpretation Comments Monocytes # (Auto) (test code = 742-7) 0.8 0.2-0.8 [facility] HospitalAutomated blood eosinophil count 2019-11-27 05:14:00* Test Item Value Reference Range Interpretation Comments Eosinophils # (Auto) (test code = 711-2) 0.0 0.0-0.4 [facility] HospitalAutunc health pardeeed blood basophil count (count/volume)2019-11-27 05:14:00* Test Item Value Reference Range Interpretation Comments Basophils # (Auto) (test code = 704-7) 0.0 0.0-0.1 [facility] HospitalFluoroscopic procedure less than one hour qbcbonhu4437-35-30 05:14:00* Test Item Value Reference Range Interpretation Comments Absolute Immature Granulocyte (auto (doug t code = Absolute Immature Granulocyte (auto) 0.17 0-0.1 [facility] HospitalFluoroscopic procedure less than one hour grykwqvw9220-68-40 05:14:00* Test Item Value Reference Range Interpretation Comments Differential Total Cells Counted (test code = Differen tial Total Cells Counted) 100 [facility] blood neutrophils/100 leukocytes 2019-11-27 05:14:00* Test Item Value Reference Range Interpretation Comments Neutrophils % (Manual) (test code = 64902-5) 95 40-74 [facility] blood lymphocytes/100 leukocytes 2019-11-27 05:14:00* Test Item Value Reference Range Interpretation Comments Lymphocytes % (Manual) (test code = 737-7) 3 19-48 [facility] HospitalManual blood monocytes/100 leukocytes 2019-11-27 05:14:00* Test Item Value Reference Range Interpretation Comments Monocytes % (Manual) (test code = 744-3) 2 3.4-9.0 [facility] HospitalBlood platelets count by estimate (number/volume)2019-11-27 05:14:00* Test Item Value Reference Range Interpretation Comments Platelet Estimate (test code = 00599-6) MARKEDLY DECREASED [facility] HospitalPlatelet ngylkrkqha5993-70-40 05:14:00* Test Item Value Reference Range Interpretation Comments Platelet Morphology Comment (test code = 77813-8) NORMAL [facility] dacrocytes detection by light zwmtqvsbdp4523-39-69 05:14:00* Test Item Value Reference Range Interpretation Comments Tear Drop Cells (test code = 7791-7) FEW [facility] helmet cells detection by light qerfokwafm1070-31-92 05:14:00* Test Item Value Reference Range Interpretation Comments Helmet Cells (test code = 59773-6) RARE [facility] all cells detection by light frgeclztks8773-01-22 05:14:00* Test Item Value Reference Range Interpretation Comments Lincoln Cells (test code = 7790-9) SLIGHT [facility] acanthocytes detection by light hmifmicojo7975-18-82 05:14:00* Test Item Value Reference Range Interpretation Comments Acanthocytes (test code = 7789-1) FEW [facility] HospitalRB ymcsrgljpq8080-33-72 05:14:00* Test Item Value Reference Range Interpretation Comments Red Cell Morphology Comment (test code = 6742-1) ABNORMAL [facility] HospitalProthrombin time (PT) in platelet poor plasma by coagulation tcqse6749-85-96 17:38:00* Test Item Value Reference Range Interpretation Comments Prothrombin Time (test code = 5902-2) 19.2 11.9-14.5 [facility] HospitalINR in Platelet poor plasma by Coagulation znleq8827-66-13 17:38:00* Test Item Value Reference Range Interpretation Comments Prothromb Time International Ratio (test code = 6301-6) 1.54 Oral Anticoagulant Therapy INR Values:1. Low Intensity Therapy 1.5 - 2.02 . Moderate Intensity Therapy 2.0 - 3.03. High Intensity Therapy(1) 2.5 - 3. 54. High Intensity Therapy(2) 3.0 - 4.05. Panic Value INR > 5.0 [facility] HospitalFibrin D-dimer DDU measurement in platelet poor plasma (mass/volume)2019-11-26 17:38:00* Test Item Value Reference Range Interpretation Comments D-Dimer Quantitative (PE/DVT) (test code = 08723-7) 9.05 0. 00-0.45 [facility] HospitalFibrinogen measurement in platelet poor plasma by coagulation assay (mass/volume)2019-11-26 17:38:00* Test Item Value Reference Range Interpretation Comments Fibrinogen (test code = 3255-7) 223 204462 [facility] HospitalCT ABDOMEN/PELVIS ZI2746-82-16 16:43:00 [place] [address] Patient Name: INDRA GALVAN JR MR #: [id number] : Age/Sex: 39/M Req #: [id number] Adm Physician: JENNYFER PARKER MD Ordered by: LITZY FRYE, VIRGILIO FRYE Report #: [id number] Location: MED/SURG Room/Bed: [facility] [place] Procedure: [id number] CT /CT ABDOMEN/PELVIS WO Exam Date: 11/26/19 Exam Time: 1630 REPORT STATUS: Signed EXAM: CT Abdomen and Pelvis WITHOUT intravenous contrast INDICATION: Anemia, jaundice COMPARISON: CT abdomen and pelvis of 11/01/2019 TECHNIQUE: Abdo men and pelvis were scanned utilizing a multidetector helical scanner from the lung base to the pubic symphysis without administration of IV contrast. Coron al and sagittal reformations were obtained. IV CONTRAST: None ORAL CONTRAST: Water COMPLICATIONS: None RADIATION DOSE: Tota l DLP: 659 mGy*cm Dose modulation, iterative reconstruction, and/or weight based adjustment of the mA/kV was utilized to reduce the radiation dose to as low as reasonably achievable. FINDINGS: LOWER THORAX: Bilateral lower lobe dependent subsegmental atelectasis. Small left and trace right pleural e ffusions. HEPATOBILIARY: Hepatic cirrhosis. No focal liver lesion. Cholelit hiasis without CT evidence of cholecystitis. SPLEEN: Splenomegaly to 16 c m. PANCREAS: No focal masses or ductal dilatation. ADRENALS: No adrena l nodules. KIDNEYS/URETERS: No hydronephrosis, stones, or solid mass lesions. PELVIC ORGANS/BLADDER: Unremarkable. PERITONEUM / RETROPERITONEUM: Large volume ascites in the abdomen and pelvis. No free air. LYMPH NODES: No lymph adenopathy. VESSELS: Unremarkable. GI TRACT: Diverticulosis without CT ev idence of diverticulitis. No abnormal bowel thickening. No bowel obstruction. BONES AND SOFT TISSUES: No acute osseous injury. No suspicious lytic or monet stic lesions. Focal degenerative changes at the superior endplate of T10. IMPRESSION: No evidence of retroperitoneal hematoma. Hepatic cirrhosis and sequela of portal hypertension including large volume ascites in the abdom en and pelvis and splenomegaly to [address] evidence of cholecystitis. Diverticulosis without CT evidence of diverticulitis. Small left and trace right pleural effusions. Bibasilar dependent subsegmental atelectasis. Signed by: Srinivasan Chiang MD on 11/26/2019 4:49 PM Dict ated By: SRINIVASAN CHIANG MD 48 Transcribed By: CATERINA on 11/26/191648 COPY TO: VIRGILIO GALEANA Stool gastrointestinal hemoglobin gvwhvyjra2140-83-53 10:10:00* Test Item Value Reference Range Interpretation Comments Stool Occult Blood (test code = 2335-8) NEGATIVE NEGATIVE [facility] TylerErythrocyte sedimentation rate by Westergren vkokut7720-51-33 08:43:00* Test Item Value Reference Range Interpretation Comments Erythrocyte Sedimentation Rate (test code = 4537-7) 9 0- 13 [facility] HospitalAutomated reticulocyte count as percentage of total qdsxjjeplxpn3347-35-37 08:43:00* Test Item Value Reference Range Interpretation Comments Percent Reticulocyte Count (test code = 46659-2) 3.1 0.8-2 .2 [facility] iron measurement (mass/volume)2019-11-26 08:43:00* Test Item Value Reference Range Interpretation Comments Iron Level (test code = 2498-4) 83 65-175 [facility]ererum or plasma transferrin measurement (mass/volume)2019-11-26 08:43:00* Test Item Value Reference Range Interpretation Comments Transferrin (test code = 3034-6) < 70 174-364 [facility]ererum or plasma ferritin measurement (mass/volume)2019-11-26 08:43:00* Test Item Value Reference Range Interpretation Comments Ferritin (test code = 2276-4) 2887.60 21.81-274.66 [facility]ere[facility] or plasma lactate dehydrogenase measurement (enzymatic activity/volume)2019-11-26 08:43:00* Test Item Value Reference Range Interpretation Comments Lactate Dehydrogenase (test code = 228750780) 155 125-220 [facility] HospitalBlood cobalamin (vitamin B12) measurement (mass/volume)2019-11-26 08:43:00* Test Item Value Reference Range Interpretation Comments Vitamin B12 Level (test code = 57576-7) 1952 213-816 [facility]ere[facility] or plasma folate measurement (mass/volume)2019-11-26 08:43:00* Test Item Value Reference Range Interpretation Comments Folate (test code = 2284-8) 6.0 >3.0 A serum folate concentration of less than 3.1 ng/mL isconsidered to represent cl inical deficiency.Performed at: - Lab[address] [id number] Director: Alli Georges MD, Phone: [phone] County Memorial HospitalBlood polychromasia detection by light microscopy 2019-11-26 06:55:00* Test Item Value Reference Range Interpretation Comments Polychromasia (test code = 90947-1) FEW [facility] HospitalBlood macrocytes detection by light vlecyctvft1704-26-53 06:55:00* Test Item Value Reference Range Interpretation Comments Macrocytosis (test code = 738-5) SLIGHT [facility] HospitalBlmonticello hospital target cells detection by light piihcmxhqs9971-96-81 06:55:00* Test Item Value Reference Range Interpretation Comments Target Cells (test code = 87779-9) FEW [facility] HospitalBlood schistocytes detection by light zcrvizoapy3684-24-08 06:55:00* Test Item Value Reference Range Interpretation Comments Schistocytes (test code = 800-3) [facility]her[facility] or plasma sodium measurement (moles/volume)2019-11-26 06:55:00* Test Item Value Reference Range Interpretation Comments Sodium Level (test code = 2951-2) 136 136-145 [facility]ererum or plasma potassium measurement (moles/volume)2019-11-26 06:55:00* Test Item Value Reference Range Interpretation Comments Potassium Level (test code = 2823-3) 3.1 3.5-5.1 [facility] or plasma chloride measurement (moles/volume)2019-11-26 06:55:00* Test Item Value Reference Range Interpretation Comments Chloride Level (test code = 2075-0) 100 98-107 [facility]ererum or plasma carbon dioxide, total measurement (moles/volume)2019-11-26 06:55:00* Test Item Value Reference Range Interpretation Comments Carbon Dioxide Level (test code = 2028-9) 26 22-29 [facility]ererum or plasma anion vjv2549-02-71 06:55:00* Test Item Value Reference Range Interpretation Comments Anion Gap (test code = 78521-5) 13.1 8-16 [facility] or plasma urea nitrogen measurement (mass/volume)2019-11-26 06:55:00* Test Item Value Reference Range Interpretation Comments Blood Urea Nitrogen (test code = 3094-0) 16 7-26 [facility]ererum or plasma creatinine measurement (mass/volume)2019-11-26 06:55:00* Test Item Value Reference Range Interpretation Comments Creatinine (test code = 2160-0) 3.06 0.72-1.25 [facility]ererum or plasma urea nitrogen/creatinine mass ntnin7481-78-12 06:55:00* Test Item Value Reference Range Interpretation Comments BUN/Creatinine Ratio (test code = 3097-3) 5 6-25 [facility] HospitalEstimated glomerular filtration rate (GFR) bmpxjrfrdkwpz6718-79-56 06:55:00* Test Item Value Reference Range Interpretation Comments Estimat Glomerular Filtration Rate (test code = 724918064) 23 >60 Ranges were taken from the National Kidney Disease Education Program and the [facility] literature.Reference ranges:60 or greater: Qypkbb45-02 ( for 3 consecutive months): Chronic kidney disease 15 or less: Kidney failureStarr County Memorial HospitalGlucose yxkfjkygaqw9972-18-70 06:55:00* Test Item Value Reference Range Interpretation Comments Glucose Level (test code = MSP6557) 115 74-118 [facility]ere[facility] or plasma calcium measurement (mass/volume)2019-11-26 06:55:00* Test Item Value Reference Range Interpretation Comments Calcium Level (test code = 33384-8) 7.4 8.4-10.2 [facility]ererum or plasma total bilirubin measurement (mass/volume)2019-11-26 06:55:00* Test Item Value Reference Range Interpretation Comments Total Bilirubin (test code = 1975-2) 27.3 0.2-1.2 [facility]ererum or plasma conjugated bilirubin measurement (mass/volume)2019-11-26 06:55:00* Test Item Value Reference Range Interpretation Comments Direct Bilirubin (test code = 79394-2) 18.7 0.0-0.5 [facility] HospitalFluoroscopic procedure less than one hour vveradrv6069-53-86 06:55:00* Test Item Value Reference Range Interpretation Comments Aspartate Amino Transf (AST/SGOT) (test code = Aspartate Amino Transf (AST/SGOT)) 76 5-34 [facility]ererum or plasma alanine aminotransferase measurement (enzymatic activity/volume)2019-11-26 06:55:00* Test Item Value Reference Range Interpretation Comments Alanine Aminotransferase (ALT/SGPT) (test code = 1742-6) 43 0-55 [facility]ererum or plasma protein measurement (mass/volume)2019-11-26 06:55:00* Test Item Value Reference Range Interpretation Comments Total Protein (test code = 2885-2) 3.7 6.5-8.1 [facility]ererum or plasma albumin measurement (mass/volume)2019-11-26 06:55:00* Test Item Value Reference Range Interpretation Comments Albumin (test code = 1751-7) 2.1 3.5-5.0 [facility]ererum or plasma alkaline phosphatase measurement (enzymatic activity/volume)2019-11-26 06:55:00* Test Item Value Reference Range Interpretation Comments Alkaline Phosphatase (test code = 6768-6) 105 40-150 [facility] HospitalFluoroscopic procedure less than one hour kkitvnhs8353-77-17 04:55:00* Test Item Value Reference Range Interpretation Comments Coronavirus (PCR) (test code = Coronavirus (PCR)) NOT DETECTED NOTD ETECTED SARS-CoV-2 PCRHologic Aptima SARS-CoV-2 assay is a nucleic amplification test in tended for the qualitative detection of RNA from SARS-CoV-2 from nasopharyngeal (TRAFFIC COURT MAGISTRATE) specimens. It is used under Emergency Use [...] repr at testing oc clinically indicated.Tesing performed by:[facility] Laboratory Services[address] [place] [id number], Jimena madden MD, PhDStarr County Memorial HospitalCHES SINGLE (PORTABLE) 2019-11-25 23:16:00 [facility] [address] [place] [address] Patient Name: INDRA GALVAN JR MR #: [id number] : 1980 Age/Sex: 39/M Req #: [id number] Adm Physician: Ordered by: JIMENA CUEVAS MD Report #: [id number] Location: ER Room/Bed: Procedure: 0929-0 073 DX/CHEST SINGLE (PORTABLE) Exam Date: 11/25/19 E xam Time: 2199 REPORT STATUS: [place] d EXAMINATION: CHEST SINGLE (PORTABLE) INDICATION: Anemia COMPARISON: Chest x-ray 11/01/2019, abdominal CT 10/18/2019 FINDINGS: TUBES and LINES: Right IJ central venous catheter, tip in the right atr ium.. LUNGS: Low lung volumes. Stable left basilar subsegmental atelecta sis/scarring. No consolidations. PLEURA: No pleural effusion or pneum othorax. HEART AND MEDIASTINUM: Cardiac size is within normal size limits. BONES AND SOFT TISSUES: No acute osseous lesion. Soft tissues are unremarkable. UPPER ABDOMEN: No free air under the diaphragm. IMPR ESSION: Left basilar subsegmental atelectasis/scarring. Signed by: Moriah Mccarthy DO on 11/25/2019 11:19 PM Dictated By: ROBERTO MCCARTHY DO 18 Transcribed By: CATERINA on 11/25/192318 COPY TO: JIMENA CUEVAS MD Activated partial thromboplastin time (aPTT) in platelet poor plasma by coagulat ion lgcyx2395-81-59 21:07:00* Test Item Value Reference Range Interpretation Comments Activated Partial Thromboplast Time (test code = 70263-8) 52.2 23.8-35.5 [facility] GUIDED DSGMCRQVBZTN1424-39-51 14:54:00 [facility] [address] [place] [address] Patient Name: INDRA GALVAN JR MR #: [id number] : Age/Sex: 38/M Req #: [id number] Adm Physician: JENNYFER PARKER MD Ordered by: MORGAN ROBERTSON MD Report #: [id number] Location: [facility] Room/Bed: [place] [address] Procedure: US /US GUIDED PARACENTESIS Exam Date: 11/02/19 Exam Fernando e: 1102 REPORT STATUS: Signed [place] OCEDURE: Ultrasound-guided diagnostic paracentesis Procedural Personnel A ttending physician(s): Sonia Mora MD Pre-procedure diagnosis: Ascites Po st-procedure diagnosis: Ascites Indication: Abdominal pain, ascites Addition al clinical history: None Complications: No immediate complications. I MPRESSION: Ultrasound-guided paracentesis with drainage of 60 cc of clear y ellow fluid. Plan: Resume care by clinical team. PROCEDURE SUMMARY: - Limit ed abdominal ultrasound - Ultrasound-guided paracentesis - Additional proced ure(s): None PROCEDURE DETAILS: Pre-procedure Consent: Informed cons ent for the procedure including risks, benefits and alternatives was obtained and time-out was performed prior to the procedure. Preparation: The site was p repared and draped using maximal sterile barrier technique including cutaneous antisepsis. Anesthesia/sedation Level of anesthesia/sedation: None Initial abdominal ultrasound Initial abdominal ultrasound was performed. Fin dings: Moderate ascites. A safe window for paracentesis was identified. Par acentesis Local anesthesia was administered. Given thrombocytopenia, needle as piration rather than catheter aspiration chosen. The peritoneal cavity was acc essed with a 25 gauge needle and fluid return confirmed position. Ascites was drained. The needle was then removed, and a sterile bandage was applied. Pa racentesis access technique: Real-time ultrasound guidance. Post-drainage ultr asound: Not performed Additional Details Additional description of proced ure: None Equipment details: None Specimens removed: Abdominal fluid Estim ated blood loss (mL): None. Standardized report: [email or web address]_v3 Att estation Signer name: Dr. Sonia Mora MD I attest that I was present for the entire procedure. I reviewed the stored images and agree with the report a s written. Signed by: Dr. Sonia Mora MD on 11/10/2019 2:56 PM Dictat ed By: SONIA MORA MD 145 Transcribed By: CATERINA on 11/10/19 145 COPY TO: MORGAN ROBERTSON MD US GUIDED XGRUYZARFAVF2195-33-27 15:06:00 [place] [address] Patient Name: INDRA GALVAN MR #: [id number] : 1980 Age/Sex: 38/M Req #: [id number] Adm Physician: JENNYFER PARKER MD Ordered by: MORGAN ROBERTSON MD Report #: [id number] Location: [facility] Room/Bed: [place] [address] Procedure: [id number] US /US GUIDED PARACENTESIS Exam Date: 11/06/19 Exam Fernando e: 1340 REPORT STATUS: Signed [place] OCEDURE: Ultrasound-guided paracentesis Procedural Personnel Attending ysician(s): Srinivasan Chiang MD Pre-procedure diagnosis: Ascites Post-procedur e diagnosis: Unchanged Indication: Abdominal pain, ascites Additional clinic al history: None Complications: No immediate complications. IMPRESSION : Ultrasound-guided paracentesis with drainage of 1200 mL of bilious fluid. Plan: Resume care by clinical team. PROCEDURE SUMMARY: - Limited abdominal ultrasound - Ultrasound-guided paracentesis - Additional procedure(s): None PROCEDURE DETAILS: Pre-procedure Consent: Informed consent for the p rocedure including risks, benefits and alternatives was obtained and time-out was performed prior to the procedure. Preparation: The site was prepared and d raped using maximal sterile barrier technique including cutaneous antisepsis. Anesthesia/sedation Level of anesthesia/sedation: None Initial abdom inal ultrasound Initial abdominal ultrasound was performed. Findings: Modera te ascites. A safe window for paracentesis was identified. Paracentesis L ocal anesthesia was administered. The peritoneal cavity was accessed and fluid return confirmed position. Ascites was drained. The catheter was then removed, and a sterile bandage was applied. Paracentesis access technique: Real-time ultrasound guidance. Catheter placed: 20 gauge needle Post-drainage ultrasou nd: Not performed Additional Details Additional description of [...] MORGAN ROBERTSON MD Blood leukocytes automated count (number/volume)2019-11-06 14:30:00* Test Item Value Reference Range Interpretation Comments White Blood Count (test code = 6690-2) 12.13 4.8-10.8 [facility] HospitalBlood erythrocytes automated count (number/volume)2019-11-06 14:30:00* Test Item Value Reference Range Interpretation Comments Red Blood Count (test code = 789-8) 3.14 4.3-5.7 [facility] HospitalBlood hemoglobin measurement (moles/volume)2019-11-06 14:30:00* Test Item Value Reference Range Interpretation Comments Hemoglobin (test code = 80685-6) 9.9 14.0-18.0 [facility] HospitalAutomated blood hematocrit (volume fraction)2019-11-06 14:30:00* Test Item Value Reference Range Interpretation Comments Hematocrit (test code = 4544-3) 28.6 38.2-49.6 [facility] HospitalAutomated erythrocyte mean corpuscular xtdzqx3434-92-83 14:30:00* Test Item Value Reference Range Interpretation Comments Mean Corpuscular Volume (test code = 787-2) 91.1 81-99 [facility] HospitalAutomated erythrocyte mean corpuscular hemoglobin (mass per erythrocyte)2019-11-06 14:30:00* Test Item Value Reference Range Interpretation Comments Mean Corpuscular Hemoglobin (test code = 785-6) 31.5 28-32 [facility] HospitalAutomated erythrocyte mean corpuscular hemoglobin concentration measurement (mass/volume)2019-11-06 14:30:00* Test Item Value Reference Range Interpretation Comments Mean Corpuscular Hemoglobin Concent (test code = 786-4) 34.6 31-35 [facility] HospitalRDW NhxWb-Sib5972-05-10 14:30:00* Test Item Value Reference Range Interpretation Comments Red Cell Distribution Width (test code = 81429-0) 19.1 11.7 -14.4 [facility] HospitalAutomated blood platelet count (count/volume)2019-11-06 14:30:00* Test Item Value Reference Range Interpretation Comments Platelet Count (test code = 777-3) 45 140-360 Results repeated and called to OSCAR GNUYỄN at 1439 on 11/06/19 by VICKY MANN. Read back and verified.[facility] HospitalAutomated blood segmented neutrophil count as percentage of total dgtgesjvpr8536-92-03 14:30:00* Test Item Value Reference Range Interpretation Comments Neutrophils (%) (Auto) (test code = 93583-8) 79.8 38.7-80.0 [facility] HospitalAutomated blood lymphocyte count as percentage ot total phfobchuxj9394-93-39 14:30:00* Test Item Value Reference Range Interpretation Comments Lymphocytes (%) (Auto) (test code = 736-9) 3.6 18.0-39.1 [facility] HospitalAutomated blood monocyte count as percentage of total vzqworbeev5801-13-07 14:30:00* Test Item Value Reference Range Interpretation Comments Monocytes (%) (Auto) (test code = 5905-5) 10.3 4.4-11.3 [facility] HospitalAutomated blood eosinophil count as percentage of total hegtzwxati1474-73-35 14:30:00* Test Item Value Reference Range Interpretation Comments Eosinophils (%) (Auto) (test code = 713-8) 4.4 0.0-6.0 [facility] HospitalAutomated blood basophil count as percentage of total njvnsxcmrh9719-56-72 14:30:00* Test Item Value Reference Range Interpretation Comments Basophils (%) (Auto) (test code = 706-2) 0.8 0.0-1.0 [facility] HospitalFluoroscopic procedure less than one hour fgtwofsl5018-23-20 14:30:00* Test Item Value Reference Range Interpretation Comments IM GRANULOCYTES % (test code = IM GRANULOCYTES %) 1.1 0.0- 1.0 [facility] HospitalAutomated blood neutrophil count 2019-11-06 14:30:00* Test Item Value Reference Range Interpretation Comments Neutrophils # (Auto) (test code = 751-8) 9.7 2.1-6.9 [facility] HospitalBlood lymphocytes count (number/volume) 2019-11-06 14:30:00* Test Item Value Reference Range Interpretation Comments Lymphocytes # (Auto) (test code = 68168-8) 0.4 1.0-3.2 [facility] HospitalBlood monocytes automated count (number/volume)2019-11-06 14:30:00* Test Item Value Reference Range Interpretation Comments Monocytes # (Auto) (test code = 742-7) 1.3 0.2-0.8 [facility] HospitalAutomated blood eosinophil count 2019-11-06 14:30:00* Test Item Value Reference Range Interpretation Comments Eosinophils # (Auto) (test code = 711-2) 0.5 0.0-0.4 [facility] HospitalAutomated blood basophil count (count/volume)2019-11-06 14:30:00* Test Item Value Reference Range Interpretation Comments Basophils # (Auto) (test code = 704-7) 0.1 0.0-0.1 [facility] HospitalFluoroscopic procedure less than one hour gqiqxouv5102-24-19 14:30:00* Test Item Value Reference Range Interpretation Comments Absolute Immature Granulocyte (auto (doug t code = Absolute Immature Granulocyte (auto) 0.13 0-0.1 [facility] Centerpecimen source identification of body enurr4665-62-11 13:55:00* Test Item Value Reference Range Interpretation Comments Body Fluid Type (test code = 69936-1) PERITONEAL [facility] HospitalEvaluation of color of body fluid 2019-11-06 13:55:00* Test Item Value Reference Range Interpretation Comments Body Fluid Color (test code = 6824-7) STRAW AMBERStarr County Memorial HospitalDetermination of appearance of body lggra7232-93-14 13:55:00* Test Item Value Reference Range Interpretation Comments Body Fluid Appearance (test code = 9335-1) CLOUDY [facility] HospitalManual body fluid leukocytes count (number/volume)2019-11-06 13:55:00* Test Item Value Reference Range Interpretation Comments Body Fluid WBC (test code = 6743-9) 17 [facility] body fluid erythrocytes count (number/volume)2019-11-06 13:55:00* Test Item Value Reference Range Interpretation Comments Body Fluid RBC (test code = 6741-3) 1469 [facility] body fluid neutrophils/100 lwwqtpfokh6393-33-10 13:55:00* Test Item Value Reference Range Interpretation Comments Body Fluid Neutrophils (test code = 47208-8) 10 [facility] HospitalBody fluid lymphocyte uuqjg7483-83-75 13:55:00* Test Item Value Reference Range Interpretation Comments Body Fluid Lymphocytes (test code = 71406693) 58 [facility] HospitalBody fluid monocyte qpwxc0202-15-49 13:55:00* Test Item Value Reference Range Interpretation Comments Body Fluid Monocytes (test code = 85879-4) 32 [facility] HospitalTotal cell mjdrz2032-99-78 13:55:00* Test Item Value Reference Range Interpretation Comments Body Fluid Total Cells Counted (test code = 67177-4) 100 [facility] Centerpecimen source identification of body ayywy1746-28-96 13:55:00* Test Item Value Reference Range Interpretation Comments Body Fluid Type (test code = 70344-2) PERITONEAL [facility] HospitalEvaluation of color of body fluid 2019-11-06 13:55:00* Test Item Value Reference Range Interpretation Comments Body Fluid Color (test code = 6824-7) STRAW AMBERSt[facility] Memorial HospitalDetermination of appearance of body lqnpc6454-90-37 13:55:00* Test Item Value Reference Range Interpretation Comments Body Fluid Appearance (test code = 9335-1) CLOUDY [facility] body fluid leukocytes count (number/volume)2019-11-06 13:55:00* Test Item Value Reference Range Interpretation Comments Body Fluid WBC (test code = 6743-9) 17 [facility] body fluid erythrocytes count (number/volume)2019-11-06 13:55:00* Test Item Value Reference Range Interpretation Comments Body Fluid RBC (test code = 6741-3) 1469 [facility] HospitalManual body fluid neutrophils/100 eothqggklk3654-17-29 13:55:00* Test Item Value Reference Range Interpretation Comments Body Fluid Neutrophils (test code = 14015-5) 10 [facility] HospitalBody fluid lymphocyte mbwyh2967-41-40 13:55:00* Test Item Value Reference Range Interpretation Comments Body Fluid Lymphocytes (test code = 33743902) 58 [facility] HospitalBody fluid monocyte lynlu7864-60-54 13:55:00* Test Item Value Reference Range Interpretation Comments Body Fluid Monocytes (test code = 05162-5) 32 [facility] HospitalTotal cell brqxb3878-52-28 13:55:00* Test Item Value Reference Range Interpretation Comments Body Fluid Total Cells Counted (test code = 73548-0) 100 [facility] HospitalUS ABDOMEN WPBQOQK8546-86-34 12:21:00 [facility] [address] [place] [address] Patient Name: INDRA GALVAN JR MR #: [id number] : Age/Sex: 38/M Req #: [id number] [facility] Physician: JENNYFER PARKER MD Ordered by: MORGAN ROBERTSON MD Report #: [id number] Location: [facility] Room/Bed: [place] [address] Procedure: [id number] US /US ABDOMEN LIMITED Exam Date: 11/06/19 [...] ically Signed By: SRINIVASAN CHIANG MD on 11/06/191221 Transcribed By: CATERINA on 12/15 COPY TO: MORGAN ROBERTSON MD Serum or plasma sodium measurement (moles/volume)2019-11-06 04:30:00* Test Item Value Reference Range Interpretation Comments Sodium Level (test code = 2951-2) 138 136-145 [facility]ererum or plasma potassium measurement (moles/volume)2019-11-06 04:30:00* Test Item Value Reference Range Interpretation Comments Potassium Level (test code = 2823-3) 3.8 3.5-5.1 [facility]ererum or plasma chloride measurement (moles/volume)2019-11-06 04:30:00* Test Item Value Reference Range Interpretation Comments Chloride Level (test code = 2075-0) 105 98-107 [facility]ererum or plasma carbon dioxide, total measurement (moles/volume)2019-11-06 04:30:00* Test Item Value Reference Range Interpretation Comments Carbon Dioxide Level (test code = 2028-9) 19 22-29 [facility]ererum or plasma anion kge3482-51-54 04:30:00* Test Item Value Reference Range Interpretation Comments Anion Gap (test code = 23398-8) 17.8 8-16 [facility]ererum or plasma urea nitrogen measurement (mass/volume)2019-11-06 04:30:00* Test Item Value Reference Range Interpretation Comments Blood Urea Nitrogen (test code = 3094-0) 22 7-26 [facility]ererum or plasma creatinine measurement (mass/volume)2019-11-06 04:30:00* Test Item Value Reference Range Interpretation Comments Creatinine (test code = 2160-0) 2.95 0.72-1.25 [facility]ererum or plasma urea nitrogen/creatinine mass icgdr8585-34-09 04:30:00* Test Item Value Reference Range Interpretation Comments BUN/Creatinine Ratio (test code = 3097-3) 7 6-25 [facility] HospitalEstimated glomerular filtration rate (GFR) tlwmtlwkggjvt5487-05-95 04:30:00* Test Item Value Reference Range Interpretation Comments Estimat Glomerular Filtration Rate (test code = 189219757) 24 >60 Ranges were taken from the National Kidney Disease Education Program and the [facility] literature.Reference ranges:60 or greater: Tqtwek45-95 ( for 3 consecutive months): Chronic kidney disease 15 or less: Kidney failureStarr County Memorial HospitalGlucose ujlaicdzprm6447-93-97 04:30:00* Test Item Value Reference Range Interpretation Comments Glucose Level (test code = YVI4121) 89 74-118 [facility]ererum or plasma calcium measurement (mass/volume)2019-11-06 04:30:00* Test Item Value Reference Range Interpretation Comments Calcium Level (test code = 61856-4) 7.7 8.4-10.2 [facility]ererum or plasma total bilirubin measurement (mass/volume)2019-11-06 04:30:00* Test Item Value Reference Range Interpretation Comments Total Bilirubin (test code = 1975-2) > 25.0 0.2-1.2 [facility] HospitalFluoroscopic procedure less than one hour upyeldgz3020-05-97 04:30:00* Test Item Value Reference Range Interpretation Comments Aspartate Amino Transf (AST/SGOT) (test code = Aspartate Amino Transf (AST/SGOT)) 95 5-34 [facility] Centererum or plasma alanine aminotransferase measurement (enzymatic activity/volume)2019-11-06 04:30:00* Test Item Value Reference Range Interpretation Comments Alanine Aminotransferase (ALT/SGPT) (test code = 1742-6) 38 0-55 [facility]ererum or plasma protein measurement (mass/volume)2019-11-06 04:30:00* Test Item Value Reference Range Interpretation Comments Total Protein (test code = 2885-2) 4.7 6.5-8.1 [facility]ererum or plasma albumin measurement (mass/volume)2019-11-06 04:30:00* Test Item Value Reference Range Interpretation Comments Albumin (test code = 1751-7) 2.7 3.5-5.0 [facility] HospitalPlasma globulin measurement (mass/volume) 2019-11-06 04:30:00* Test Item Value Reference Range Interpretation Comments Globulin (test code = 24025-3) 2.0 2.3-3.5 [facility]ererum or plasma albumin/globulin mass xghrh9649-58-83 04:30:00* Test Item Value Reference Range Interpretation Comments Albumin/Globulin Ratio (test code = 1759-0) 1.4 0.8-2.0 [facility]ererum or plasma alkaline phosphatase measurement (enzymatic activity/volume)2019-11-06 04:30:00* Test Item Value Reference Range Interpretation Comments Alkaline Phosphatase (test code = 6768-6) 110 40-150 [facility] HospitalPlasma globulin measurement (mass/volume) 2019-11-06 04:30:00* Test Item Value Reference Range Interpretation Comments Globulin (test code = 43578-4) 2.0 2.3-3.5 [facility]ererum or plasma albumin/globulin mass ylxzv5346-50-37 04:30:00* Test Item Value Reference Range Interpretation Comments Albumin/Globulin Ratio (test code = 1759-0) 1.4 0.8-2.0 [facility] HospitalABDOMEN-1VIEW (KUB)2019-11-04 14:26:00 [place] [address] Patient Name: INDRA GALVAN MR #: [id number] : Age/Sex: 38/M Req #: [id number] Adm Physician: JENNYFER PARKER MD Ordered by: KINDRA NUNEZ MD Report #: [id number] Location: ICU Room/Bed: [place] [address] Procedure: [id number] DX/A WIN-WandaVIEW (KUTrudi) Exam Date: 11/04/19 Exam Time: 13 50 REPORT STATUS: Signed Exam: K UB - 2 views Indication: Hypovolemic shock Comparison: CT abdomen and pelvis of 11/01/2019 Findings: Several dilated loops of small bowel in the left abdomen measure up to 4.6 cm. No free air. No acute osseous injury. [place] llic embolization coils in the right lower [...] (PT) in platelet poor plasma by coagulation yjzgk1301-63-34 05:44:00* Test Item Value Reference Range Interpretation Comments Prothrombin Time (test code = 5902-2) 21.5 11.9-14.5 [facility] HospitalINR in Platelet poor plasma by Coagulation uoewr2898-60-13 05:44:00* Test Item Value Reference Range Interpretation Comments Prothromb Time International Ratio (test code = 6301-6) 1.77 Oral Anticoagulant Therapy INR Values:1. Low Intensity Therapy 1.5 - 2.02 . Moderate Intensity Therapy 2.0 - 3.03. High Intensity Therapy(1) 2.5 - 3. 54. High Intensity Therapy(2) 3.0 - 4.05. Panic Value INR > 5.0 [facility]ererum or plasma haptoglobin measurement (mass/volume)2019-11-04 05:44:00* Test Item Value Reference Range Interpretation Comments Haptoglobin (test code = 4542-7) 08 17-317 Performed at: [address] [id number] Care Management Assistant: Esdras Lemon MD, Phone: [phone] [facility]illus Medical Centererum or plasma haptoglobin measurement (mass/volume)2019-11-04 05:44:00* Test Item Value Reference Range Interpretation Comments Haptoglobin (test code = 4542-7) 29 17-317 Performed at: [address] [id number] Care Management Assistant: Esdras Lemon MD, Phone: [phone] Camillus Medical Centererum or plasma conjugated bilirubin measurement (mass/volume) 2019-11-03 04:30:00* Test Item Value Reference Range Interpretation Comments Direct Bilirubin (test code = 94541-6) > 15.0 0.0-0.5 [facility]ererum or plasma indirect bilirubin measurement (mass/volume)2019-11-03 04:30:00* Test Item Value Reference Range Interpretation Comments Indirect Bilirubin (test code = 1971-1) 10.0 0.3-1.2 [facility]ererum or plasma indirect bilirubin measurement (mass/volume)2019-11-03 04:30:00* Test Item Value Reference Range Interpretation Comments Indirect Bilirubin (test code = 1971-1) 10.0 0.3-1.2 [facility] Centererum hepatitis B virus surface antibody assay by radioimmunoassay (units/volume)2019-11-02 16:20:00* Test Item Value Reference Range Interpretation Comments Hepatitis B Surface Antibody, Quant (test code = 5194-6) 36.0 Immunity>9.9 Status of Immunity Anti-HBs Level Inconsistent with Immunity 0.0 - 9.9Consistent with Immunity >9.9[facility]rum or plasma hepatitis B virus core antibody detection by dtpsozenbgt8878-05-12 16:20:00* Test Item Value Reference Range Interpretation Comments Hepatitis B Core Total Antibody (test code = 38335-1) Negative Negative [facility]ererum or plasma hepatitis B virus core IgM antibody detection by qninpqupvus9864-09-59 16:20:00* Test Item Value Reference Range Interpretation Comments Hepatitis B Core IgM Antibody (test code = 42489-7) Negative Ne gative Performed at: [address] [id number] Director: Alli Georges MD, Phone: [phone] [facility] Medical Centererum hepatitis B virus surface antibody assay by radioimmunoassay (units/volume)2019-11-02 16:20:00* Test Item Value Reference Range Interpretation Comments Hepatitis B Surface Antibody, Quant (test code = 5194-6) 36.0 Immunity>9.9 Status of Immunity Anti-HBs Level Inconsistent with Immunity 0.0 - 9.9Consistent with Immunity >9.9[facility]ererum or plasma hepatitis B virus core antibody detection by pxsxfitduzr2528-97-46 16:20:00* Test Item Value Reference Range Interpretation Comments Hepatitis B Core Total Antibody (test code = 47572-7) Negative Negative [facility]ererum or plasma hepatitis B virus core IgM antibody detection by adarlhotwon4588-08-68 16:20:00* Test Item Value Reference Range Interpretation Comments Hepatitis B Core IgM Antibody (test code = 29619-2) Negative Ne gative Performed at: [address] [id number] Director: Alli Georges MD, Phone: [phone] Camillus Medical Centererum or plasma creatine kinase measurement (enzymatic activity/volume) 2019-11-02 15:03:00* Test Item Value Reference Range Interpretation Comments Creatine Kinase (test code = 2157-6) 28 30-200 [facility]ererum or plasma creatine kinase MB measurement (mass/volume)2019-11-02 15:03:00* Test Item Value Reference Range Interpretation Comments Creatine Kinase MB (test code = 22173-0) 1.10 0-5.0 [facility] HospitalTroponin I measurement by highly sensitive enzyme secttuuavse2156-17-27 15:03:00* Test Item Value Reference Range Interpretation Comments Troponin I (test code = 37363-5) 0.022 0-0.300 [facility]ererum or plasma creatine kinase measurement (enzymatic activity/volume)2019-11-02 15:03:00* Test Item Value Reference Range Interpretation Comments Creatine Kinase (test code = 2157-6) 28 30-200 [facility]ererum or plasma creatine kinase MB measurement (mass/volume)2019-11-02 15:03:00* Test Item Value Reference Range Interpretation Comments Creatine Kinase MB (test code = 20374-7) 1.10 0-5.0 [facility] HospitalTroponin I measurement by highly sensitive enzyme pkuisfsucwu5797-93-61 15:03:00* Test Item Value Reference Range Interpretation Comments Troponin I (test code = 99857-9) 0.022 0-0.300 [facility] HospitalBody fluid other cells manual count 2019-11-02 11:20:00* Test Item Value Reference Range Interpretation Comments Body Fluid Other Cells (test code = 720251605) 2 [facility] HospitalBody fluid other cells manual count 2019-11-02 11:20:00* Test Item Value Reference Range Interpretation Comments Body Fluid Other Cells (test code = 188208332) 2 [facility] Centertool lactoferrin spbqaawfi2083-72-92 05:00:00* Test Item Value Reference Range Interpretation Comments Stool Lactoferrin (LAB) (test code = 40587-1) POSITIVE NEGATIVE Testing on stool aspirate specimens is outside dye line operator claims since specime n type not validated on this assay.[facility]ererum or plasma folate measurement (mass/volume)2019-11-02 05:00:00* Test Item Value Reference Range Interpretation Comments Folate (test code = 2284-8) 9.0 >3.0 A serum folate concentration of less than 3.1 ng/mL isconsidered to represent cl inical deficiency.Performed at: [address] [id number] Director: Alli Georges MD, Phone: [phone] County Memorial HospitalClostridium difficile A and B toxin ithij4795-90-68 05:00:00* Test Item Value Reference Range Interpretation Comments Clostridium Difficile Toxin A & B (test code = 772631892) POSI TIVE NEGATIVE Results called to OSCAR NGUYỄN at 1309 on 11/02/19 by Rafia Arita. JOSE LUIS burgos called to JIMENA TINSLEY in infection control at 1309 on 11/02/19 by Rafia Arita.Testing on stool aspirate specimens is outside dye line operator claims sin e specimen type not validated on this assay.[facility] Centertool lactoferrin mtfwmdoxh7813-13-08 05:00:00* Test Item Value Reference Range Interpretation Comments Stool Lactoferrin (LAB) (test code = 21760-4) POSITIVE NEGATIVE Testing on stool aspirate specimens is outside dye line operator claims since specime n type not validated on this assay.[facility] Centerto calprotectin measurement (mass/mass)2019-11-02 05:00:00* Test Item Value Reference Range Interpretation Comments Stool Calprotectin (test code = 20960-6) 192 0-120 Concentration Interpretation Follow-Up<16 - 50 ug/g Normal None>50 -120 ug/g Borderline Re-evaluate in 4-6 weeks >120 ug/g Abnormal Repeat as clinically indicatedPerformed at: [address] [id number] Director: Esdras Lemon MD, Phone: [phone] County Memorial HospitalClostridium difficile A and B toxin apqfv6894-79-22 05:00:00* Test Item Value Reference Range Interpretation Comments Clostridium Difficile Toxin A & B (test code = 437633842) POSI TIVE NEGATIVE Results called to OSCAR NGUYỄN at 1309 on 11/02/19 by Rafia Arita. JOSE LUIS burgos called to JIMENA TINSLEY in infection control at 1309 on 11/02/19 by Rafia Arita.Testing on stool aspirate specimens is outside dye line operator claims sin e specimen type not validated on this assay.[facility] HospitalAutomated reticulocyte count as percentage of total htlrqqkzhzqq0553-10-81 04:50:00* Test Item Value Reference Range Interpretation Comments Percent Reticulocyte Count (test code = 50230-9) 1.9 0.8-2 .2 [facility] HospitalActivated partial thromboplastin time (aPTT) in platelet poor plasma by coagulation eitgw1358-95-04 04:50:00* Test Item Value Reference Range Interpretation Comments Activated Partial Thromboplast Time (test code = 13672-4) 61.2 23.8-35.5 [facility] HospitalPhosphorus lpjohahyely2270-41-08 04:50:00 * Test Item Value Reference Range Interpretation Comments Phosphorus Level (test code = IIP4189) 4.2 2.3-4.7 [facility]ererum or plasma magnesium measurement (mass/volume)2019-11-02 04:50:00* Test Item Value Reference Range Interpretation Comments Magnesium Level (test code = 26229-4) 1.9 1.3-2.1 [facility]ererum or plasma iron measurement (mass/volume)2019-11-02 04:50:00* Test Item Value Reference Range Interpretation Comments Iron Level (test code = 2498-4) 128 65-175 [facility]ererum or plasma iron binding capacity measurement (mass/volume)2019-11-02 04:50:00* Test Item Value Reference Range Interpretation Comments Total Iron Binding Capacity (test code = 2500-7) 115 261-4 78 [facility] Centererum or plasma iron saturation measurement (mass fraction)2019-11-02 04:50:00* Test Item Value Reference Range Interpretation Comments Percent Iron Saturation (test code = 2502-3) 111 15-50 [facility]ererum or plasma transferrin measurement (mass/volume)2019-11-02 04:50:00* Test Item Value Reference Range Interpretation Comments Transferrin (test code = 3034-6) 82 174-364 [facility]ererum or plasma ferritin measurement (mass/volume)2019-11-02 04:50:00* Test Item Value Reference Range Interpretation Comments Ferritin (test code = 2276-4) > 2000.00 21.81-274.66 [facility] HospitalBlood cobalamin (vitamin B12) measurement (mass/volume)2019-11-02 04:50:00* Test Item Value Reference Range Interpretation Comments Vitamin B12 Level (test code = 10958-6) 1727 213816 [facility] HospitalPhosphorus feyaebqrnyq2067-33-55 04:50:00 * Test Item Value Reference Range Interpretation Comments Phosphorus Level (test code = PLA2841) 4.2 2.3-4.7 [facility]ererum or plasma magnesium measurement (mass/volume)2019-11-02 04:50:00* Test Item Value Reference Range Interpretation Comments Magnesium Level (test code = 22695-7) 1.9 1.3-2.1 [facility]ererum or plasma iron binding capacity measurement (mass/volume)2019-11-02 04:50:00* Test Item Value Reference Range Interpretation Comments Total Iron Binding Capacity (test code = 2500-7) 115 261-4 78 [facility] Centererum or plasma iron saturation measurement (mass fraction)2019-11-02 04:50:00* Test Item Value Reference Range Interpretation Comments Percent Iron Saturation (test code = 2502-3) 111 15-50 [facility]2020-09-06 01:20:00* Test Item Value Reference Range Interpretation Comments Ammonia (test code = 86524-4) > 1700 31-123 [facility] Centererum or plasma ethanol measurement (mass/volume)2019-11-02 01:20:00* Test Item Value Reference Range Interpretation Comments Ethyl Alcohol Level (test code = 5643-2) < 10.0 0.0-10.0 [facility]2020-09-06 01:20:00* Test Item Value Reference Range Interpretation Comments Ammonia (test code = 61198-5) > 1700 31-123 [facility] ethanol [facility] (mass/volume)2019-11-02 01:20:00* Test Item Value Reference Range Interpretation Comments Ethyl Alcohol Level (test code = 5643-2) < 10.0 0.0-10.0 [facility] [id number] 22:20:00 [facility] [address] [place] [address] Patient Name: INDRA GALVAN JR MR #: [id number] : Age/Sex: 38/M Req #: [id number] Adm Physician: JENNYFER PARKER MD Ordered by: MARYLU KELSEY DO Report #: [id number] Location: [facility] Room/Bed: [facility]-2 Procedure: [id number] CT/CT ABDOMEN/PELVIS WO Exam Date: 11/01/19 Exam [...] CASAS MD 32 Transcribed By: CATERINA on 11/01/192232 CO PY TO: MARYLU KELSEY, Fluoroscopic procedure less than one hour wfskyvdr5879-77-87 22:05:00* Test Item Value Reference Range Interpretation Comments Coronavirus (PCR) (test code = Coronavirus (PCR)) NOT DETECTED NOTD ETECTED SARS-CoV-2 PCRHologic Aptima SARS-CoV-2 assay is a nucleic amplification test in tended for the qualitative detection of RNA from SARS-CoV-2 from nasopharyngeal (TRAFFIC COURT MAGISTRATE) specimens. It is used under Emergency Use [...] repr at testing oc clinically indicated.Tesing performed by:[facility] Laboratory Services3 01 [facility] [id number], Jimena madden MD, [facility]DW[facility] SING[facility] (PORTABLE) 2019-11-01 21:37:00 [facility] [address] [place], [place] [address] Patient Name: INDRA GALVAN JR MR #: [id number] : 1980 Age/Sex: 38/M Req #: [id number] Adm Physician: Ordered by: MARYLU KELSEY DO Report #: [id number] Location: ER Room/Bed: Procedure: [id number] DX/CHEST SINGLE (PORTABLE) Exam Date: 11/01/19 Exam [...] CATERINA on 11/01/192138 COPY TO: MARYLU KELSEY, Fluoroscopic procedure less than one hour icrugqkv3551-96-91 20:58:00* Test Item Value Reference Range Interpretation Comments Lactic Acid Level (test code = Lactic Acid Level) 1.3 0.5- 2.0 [facility] lipase measurement (enzymatic activity/volume)2019-11-01 20:58:00* Test Item Value Reference Range Interpretation Comments Lipase (test code = 3040-3) [facility] wzqtvul3254-49-14 20:58:00* Test Item Value Reference Range Interpretation Comments Blood Culture (test code = 14221680) NO GROWTH AFTER 72 HOURS [facility] HospitalFluoroscopic procedure less than one hour sowsqohs9555-12-56 20:58:00* Test Item Value Reference Range Interpretation Comments Lactic Acid Level (test code = Lactic Acid Level) 1.3 0.5- 2.0 [facility] lipase measurement (enzymatic activity/volume)2019-11-01 20:58:00* Test Item Value Reference Range Interpretation Comments Lipase (test code = 3040-3) [facility]Blood pwngawf2472-97-53 20:58:00* Test Item Value Reference Range Interpretation Comments Blood Culture (test code = 75597540) NO GROWTH AFTER 5 DAYS, FINAL REPORT [facility] HospitalUrine color ljkjtgtkekgji7970-21-65 10:50:00* Test Item Value Reference Range Interpretation Comments Urine Color (test code = 5778-6) ORANGE YELLOW [facility] HospitalUrine psgcbba7113-69-68 10:50:00* Test Item Value Reference Range Interpretation Comments Urine Clarity (test code = 67302-5) CLEAR CLEAR [facility] Centerpecific gravity of Urine by Test strip 2019-10-21 10:50:00* Test Item Value Reference Range Interpretation Comments Urine Specific [place] (test code = 5811-5) 1.015 1.010-1.02 5 [facility] pH measurement by automated test mambl6696-92-74 10:50:00* Test Item Value Reference Range Interpretation Comments Urine pH (test code = 41090-2) 5.5 5-7 [facility] leukocyte esterase detection by acmpobiq8428-28-65 10:50:00* Test Item Value Reference Range Interpretation Comments Urine Leukocyte Esterase (test code = 5799-2) NEGATIVE NEGATIVE [facility] HospitalU[facility] nitrite ylbltsjgv8039-65-03 10:50:00* Test Item Value Reference Range Interpretation Comments Urine Nitrite (test code = 27772-4) NEGATIVE NEGATIVE [facility] protein measurement by test strip (mass/volume)2019-10-21 10:50:00* Test Item Value Reference Range Interpretation Comments Urine Protein (test code = 5804-0) 2+ NEGATIVE [facility] HospitalU[facility] glucose qhjcjgcjx0261-98-03 10:50:00* Test Item Value Reference Range Interpretation Comments Urine Glucose (UA) (test code = 2349-9) 1+ NEGATIVE [facility] HospitalUrine ketones detection by automated test azyse2515-47-68 10:50:00* Test Item Value Reference Range Interpretation Comments Urine Ketones (test code = 19563-5) 1+ NEGATIVE [facility] HospitalUrine urobilinogen measurement by test strip (mass/volume)2019-10-21 10:50:00* Test Item Value Reference Range Interpretation Comments Urine Urobilinogen (test code = 70118-8) 8 0.2-1 [facility] total bilirubin measurement (mass/volume)2019-10-21 10:50:00* Test Item Value Reference Range Interpretation Comments Urine Bilirubin (test code = 1978-6) LARGE NEGATIVE [facility] HospitalUrine erythrocytes qpcoxrotc7530-54-64 10:50:00* Test Item Value Reference Range Interpretation Comments Urine Blood (test code = 32411-9) LARGE NEGATIVE [facility] HospitalAutomated urine sediment leukocyte count by microscopy (number/high power field)2019-10-21 10:50:00* Test Item Value Reference Range Interpretation Comments Urine WBC (test code = 5821-4) 0-5 0-5 [facility] HospitalErythrocytes detection in urine sediment by light bdhlzhiuob8203-43-40 10:50:00* Test Item Value Reference Range Interpretation Comments Urine RBC (test code = 90116-9) >50 0-5 [facility] HospitalBacteria detection in urine sediment by light vfpjoilekk4576-05-38 10:50:00* Test Item Value Reference Range Interpretation Comments Urine Bacteria (test code = 02356-9) MANY NONE [facility] HospitalEpithelial cells detection in urine sediment by light hoabzusfsm1059-09-56 10:50:00* Test Item Value Reference Range Interpretation Comments Urine Epithelial Cells (test code = 07875-3) MODERATE NONE [facility] HospitalUrine color fobohoudrhsja9985-38-59 10:50:00* Test Item Value Reference Range Interpretation Comments Urine Color (test code = 5778-6) ORANGE YELLOW [facility] HospitalUrine drsnjny6176-93-75 10:50:00* Test Item Value Reference Range Interpretation Comments Urine Clarity (test code = 51346-3) CLEAR CLEAR [facility] Centerpecific gravity of Urine by Test strip 2019-10-21 10:50:00* Test Item Value Reference Range Interpretation Comments Urine Specific [place] (test code = 5811-5) 1.015 1.010-1.02 5 [facility] pH measurement by automated test umxcx8659-68-08 10:50:00* Test Item Value Reference Range Interpretation Comments Urine pH (test code = 90280-5) 5.5 5-7 [facility] HospitalUrine leukocyte esterase detection by lrsvzawj5744-38-38 10:50:00* Test Item Value Reference Range Interpretation Comments Urine Leukocyte Esterase (test code = 5799-2) NEGATIVE NEGATIVE [facility] HospitalUrine nitrite bcsnrwaps2965-55-63 10:50:00* Test Item Value Reference Range Interpretation Comments Urine Nitrite (test code = 14252-2) NEGATIVE NEGATIVE [facility] HospitalUrine protein measurement by test strip (mass/volume)2019-10-21 10:50:00* Test Item Value Reference Range Interpretation Comments Urine Protein (test code = 5804-0) 2+ NEGATIVE [facility] HospitalUrine glucose wbdnttdpc9936-67-11 10:50:00* Test Item Value Reference Range Interpretation Comments Urine Glucose (UA) (test code = 2349-9) 1+ NEGATIVE [facility] HospitalUrine ketones detection by automated test npzzi4266-06-38 10:50:00* Test Item Value Reference Range Interpretation Comments Urine Ketones (test code = 14119-4) 1+ NEGATIVE [facility] HospitalUrine urobilinogen measurement by test strip (mass/volume)2019-10-21 10:50:00* Test Item Value Reference Range Interpretation Comments Urine Urobilinogen (test code = 40623-3) 8 0.2-1 [facility] HospitalU[facility] total bilirubin measurement (mass/volume)2019-10-21 10:50:00* Test Item Value Reference Range Interpretation Comments Urine Bilirubin (test code = 1978-6) LARGE NEGATIVE [facility] HospitalUrine erythrocytes jfndvwqrh9312-35-26 10:50:00* Test Item Value Reference Range Interpretation Comments Urine Blood (test code = 04578-6) LARGE NEGATIVE [facility] HospitalAutomated urine sediment leukocyte count by microscopy (number/high power field)2019-10-21 10:50:00* Test Item Value Reference Range Interpretation Comments Urine WBC (test code = 5821-4) 0-5 0-5 [facility] HospitalErythrocytes detection in urine sediment by light aldykuzxti1409-91-15 10:50:00* Test Item Value Reference Range Interpretation Comments Urine RBC (test code = 79703-1) >50 0-5 [facility] HospitalBacteria detection in urine sediment by light yqfqbcgmys1115-57-72 10:50:00* Test Item Value Reference Range Interpretation Comments Urine Bacteria (test code = 34258-6) MANY NONE [facility] HospitalEpithelial cells detection in urine sediment by light oweaujnbav5911-99-18 10:50:00* Test Item Value Reference Range Interpretation Comments Urine Epithelial Cells (test code = 99964-2) MODERATE NONE [facility] HospitalUrine color gnkhamekcotov0879-88-71 10:50:00* Test Item Value Reference Range Interpretation Comments Urine Color (test code = 5778-6) ORANGE YELLOW [facility] HospitalUrine wmjkzax9036-63-55 10:50:00* Test Item Value Reference Range Interpretation Comments Urine Clarity (test code = 36333-2) CLEAR CLEAR [facility] Centerpecific gravity of Urine by Test strip 2019-10-21 10:50:00* Test Item Value Reference Range Interpretation Comments Urine Specific [place] (test code = 5811-5) 1.015 1.010-1.02 5 [facility] HospitalU[facility] pH measurement by automated test ktiax5024-60-72 10:50:00* Test Item Value Reference Range Interpretation Comments Urine pH (test code = 72055-7) 5.5 5-7 [facility] HospitalUrine leukocyte esterase detection by sgokfjqr9062-14-61 10:50:00* Test Item Value Reference Range Interpretation Comments Urine Leukocyte Esterase (test code = 5799-2) NEGATIVE NEGATIVE [facility] HospitalUrine nitrite iymmextli4968-42-73 10:50:00* Test Item Value Reference Range Interpretation Comments Urine Nitrite (test code = 99864-6) NEGATIVE NEGATIVE [facility] HospitalUrine protein measurement by test strip (mass/volume)2019-10-21 10:50:00* Test Item Value Reference Range Interpretation Comments Urine Protein (test code = 5804-0) 2+ NEGATIVE [facility] HospitalUrine glucose epwbetsgq4511-05-18 10:50:00* Test Item Value Reference Range Interpretation Comments Urine Glucose (UA) (test code = 2349-9) 1+ NEGATIVE [facility] HospitalUrine ketones detection by automated test ebfur5251-92-87 10:50:00* Test Item Value Reference Range Interpretation Comments Urine Ketones (test code = 55300-3) 1+ NEGATIVE [facility] HospitalUrine urobilinogen measurement by test strip (mass/volume)2019-10-21 10:50:00* Test Item Value Reference Range Interpretation Comments Urine Urobilinogen (test code = 63605-1) 8 0.2-1 [facility] HospitalUrine total bilirubin measurement (mass/volume)2019-10-21 10:50:00* Test Item Value Reference Range Interpretation Comments Urine Bilirubin (test code = 1978-6) LARGE NEGATIVE [facility] HospitalUrine erythrocytes mujpgncwx2722-04-80 10:50:00* Test Item Value Reference Range Interpretation Comments Urine Blood (test code = 03123-6) LARGE NEGATIVE [facility] HospitalAutomated urine sediment leukocyte count by microscopy (number/high power field)2019-10-21 10:50:00* Test Item Value Reference Range Interpretation Comments Urine WBC (test code = 5821-4) 0-5 0-5 [facility] HospitalErythrocytes detection in urine sediment by light uknaalyyhq3714-53-87 10:50:00* Test Item Value Reference Range Interpretation Comments Urine RBC (test code = 41330-6) >50 0-5 [facility] HospitalBacteria detection in urine sediment by light nqymfepqim9001-56-80 10:50:00* Test Item Value Reference Range Interpretation Comments Urine Bacteria (test code = 78207-4) MANY NONE [facility] HospitalEpithelial cells detection in urine sediment by light bywywgoyjt5341-54-44 10:50:00* Test Item Value Reference Range Interpretation Comments Urine Epithelial Cells (test code = 92922-6) MODERATE NONE [facility] plasma total bilirubin measurement (mass/volume)2019-10-21 10:26:00* Test Item Value Reference Range Interpretation Comments Total Bilirubin (test code = 1975-2) > 25.0 0.2-1.2 [facility] or plasma conjugated bilirubin measurement (mass/volume)2019-10-21 10:26:00* Test Item Value Reference Range Interpretation Comments Direct Bilirubin (test code = 00573-9) > 15.0 0.0-0.5 [facility] or plasma indirect bilirubin measurement (mass/volume)2019-10-21 10:26:00* Test Item Value Reference Range Interpretation Comments Indirect Bilirubin (test code = 1971-1) 10.0 0.3-1.2 [facility] or plasma sodium measurement (moles/volume)2019-10-21 05:20:00* Test Item Value Reference Range Interpretation Comments Sodium Level (test code = 2951-2) 129 136-145 [facility] or plasma potassium measurement (moles/volume)2019-10-21 05:20:00* Test Item Value Reference Range Interpretation Comments Potassium Level (test code = 2823-3) 3.8 3.5-5.1 [facility] or plasma chloride measurement (moles/volume)2019-10-21 05:20:00* Test Item Value Reference Range Interpretation Comments Chloride Level (test code = 2075-0) 97 98-107 [facility] or plasma carbon dioxide, total measurement (moles/volume)2019-10-21 05:20:00* Test Item Value Reference Range Interpretation Comments Carbon Dioxide Level (test code = 2028-9) 19 22-29 [facility] or plasma anion ulg5352-93-84 05:20:00* Test Item Value Reference Range Interpretation Comments Anion Gap (test code = 02768-0) 16.8 8-16 [facility] or plasma urea nitrogen measurement (mass/volume)2019-10-21 05:20:00* Test Item Value Reference Range Interpretation Comments Blood Urea Nitrogen (test code = 3094-0) 30 7-26 [facility] or plasma creatinine measurement (mass/volume)2019-10-21 05:20:00* Test Item Value Reference Range Interpretation Comments Creatinine (test code = 2160-0) 3.84 0.72-1.25 [facility] or plasma urea nitrogen/creatinine mass vzhcb1603-20-68 05:20:00* Test Item Value Reference Range Interpretation Comments BUN/Creatinine Ratio (test code = 3097-3) 8 6-25 [facility] HospitalEstimated glomerular filtration rate (GFR) btpgmijvkrczv9418-29-35 05:20:00* Test Item Value Reference Range Interpretation Comments Estimat Glomerular Filtration Rate (test code = 996141418) 18 >60 Ranges were taken from the National Kidney Disease Education Program and the [facility] [employer] literature.Reference ranges:60 or greater: Hdynej40-74 ( for 3 consecutive months): Chronic kidney disease 15 or less: Kidney failureSt[facility] County Memorial HospitalGlucose mzivpwjmbxk0732-90-92 05:20:00* Test Item Value Reference Range Interpretation Comments Glucose Level (test code = IXP6037) 192 74-118 [facility] or plasma calcium measurement (mass/volume)2019-10-21 05:20:00* Test Item Value Reference Range Interpretation Comments Calcium Level (test code = 71989-2) 7.9 8.4-10.2 [facility] HospitalFluoroscopic procedure less than one hour vdxscjbe7300-94-10 05:20:00* Test Item Value Reference Range Interpretation Comments Aspartate Amino Transf (AST/SGOT) (test code = Aspartate Amino Transf (AST/SGOT)) 59 5-34 [facility] or plasma alanine aminotransferase measurement (enzymatic activity/volume)2019-10-21 05:20:00* Test Item Value Reference Range Interpretation Comments Alanine Aminotransferase (ALT/SGPT) (test code = 1742-6) 17 0-55 [facility] or plasma protein measurement (mass/volume)2019-10-21 05:20:00* Test Item Value Reference Range Interpretation Comments Total Protein (test code = 2885-2) 5.5 6.5-8.1 [facility] or plasma albumin measurement (mass/volume)2019-10-21 05:20:00* Test Item Value Reference Range Interpretation Comments Albumin (test code = 1751-7) 2.2 3.5-5.0 [facility] HospitalPlasma globulin measurement (mass/volume) 2019-10-21 05:20:00* Test Item Value Reference Range Interpretation Comments Globulin (test code = 57511-4) 3.3 2.3-3.5 [facility] or plasma albumin/globulin mass ftaqz6222-01-64 05:20:00* Test Item Value Reference Range Interpretation Comments Albumin/Globulin Ratio (test code = 1759-0) 0.7 0.8-2.0 [facility] or plasma alkaline phosphatase measurement (enzymatic activity/volume)2019-10-21 05:20:00* Test Item Value Reference Range Interpretation Comments Alkaline Phosphatase (test code = 6768-6) 128 40-150 [facility] HospitalBlood leukocytes automated count (number/volume)2019-10-21 05:15:00* Test Item Value Reference Range Interpretation Comments White Blood Count (test code = 6690-2) 12.24 4.8-10.8 [facility] HospitalBlood erythrocytes automated count (number/volume)2019-10-21 05:15:00* Test Item Value Reference Range Interpretation Comments Red Blood Count (test code = 789-8) 2.18 4.3-5.7 [facility] HospitalBlood hemoglobin measurement (moles/volume)2019-10-21 05:15:00* Test Item Value Reference Range Interpretation Comments Hemoglobin (test code = 00167-3) 7.8 14.0-18.0 [facility] HospitalAutomated blood hematocrit (volume fraction)2019-10-21 05:15:00* Test Item Value Reference Range Interpretation Comments Hematocrit (test code = 4544-3) 21.7 38.2-49.6 [facility] HospitalAutomated erythrocyte mean corpuscular khejjl8334-59-42 05:15:00* Test Item Value Reference Range Interpretation Comments Mean Corpuscular Volume (test code = 787-2) 99.5 81-99 [facility] HospitalAutomated erythrocyte mean corpuscular hemoglobin (mass per erythrocyte)2019-10-21 05:15:00* Test Item Value Reference Range Interpretation Comments Mean Corpuscular Hemoglobin (test code = 785-6) 35.8 28-32 [facility] HospitalAutomated erythrocyte mean corpuscular hemoglobin concentration measurement (mass/volume)2019-10-21 05:15:00* Test Item Value Reference Range Interpretation Comments Mean Corpuscular Hemoglobin Concent (test code = 786-4) 35.9 31-35 [facility] HospitalRDW OezTn-Ofx4716-52-25 05:15:00* Test Item Value Reference Range Interpretation Comments Red Cell Distribution Width (test code = 93985-3) 19.4 11.7 -14.4 [facility] HospitalAutomated blood platelet count (count/volume)2019-10-21 05:15:00* Test Item Value Reference Range Interpretation Comments Platelet Count (test code = 777-3) 103 140-360 [facility] HospitalAutomated blood segmented neutrophil count as percentage of total zutwxxagua0522-32-08 05:15:00* Test Item Value Reference Range Interpretation Comments Neutrophils (%) (Auto) (test code = 83080-0) 91.7 38.7-80.0 [facility] HospitalAutomated blood lymphocyte count as percentage ot total pavrocbyoh8273-33-66 05:15:00* Test Item Value Reference Range Interpretation Comments Lymphocytes (%) (Auto) (test code = 736-9) 3.9 18.0-39.1 [facility] HospitalAutomated blood monocyte count as percentage of total zfcnlmvdla5188-00-24 05:15:00* Test Item Value Reference Range Interpretation Comments Monocytes (%) (Auto) (test code = 5905-5) 3.3 4.4-11.3 [facility] HospitalAutomated blood eosinophil count as percentage of total dyextlualg5502-63-18 05:15:00* Test Item Value Reference Range Interpretation Comments Eosinophils (%) (Auto) (test code = 713-8) 0.0 0.0-6.0 [facility] HospitalAutomated blood basophil count as percentage of total nfttxdcaus0105-26-01 05:15:00* Test Item Value Reference Range Interpretation Comments Basophils (%) (Auto) (test code = 706-2) 0.2 0.0-1.0 [facility] HospitalFluoroscopic procedure less than one hour dievafoy1667-23-14 05:15:00* Test Item Value Reference Range Interpretation Comments IM GRANULOCYTES % (test code = IM GRANULOCYTES %) 0.9 0.0- 1.0 [facility] HospitalAutomated blood neutrophil count 2019-10-21 05:15:00* Test Item Value Reference Range Interpretation Comments Neutrophils # (Auto) (test code = 751-8) 11.2 2.1-6.9 [facility] HospitalBlood lymphocytes count (number/volume) 2019-10-21 05:15:00* Test Item Value Reference Range Interpretation Comments Lymphocytes # (Auto) (test code = 44454-0) 0.5 1.0-3.2 [facility] HospitalBlmonticello hospital monocytes automated count (number/volume)2019-10-21 05:15:00* Test Item Value Reference Range Interpretation Comments Monocytes # (Auto) (test code = 742-7) 0.4 0.2-0.8 [facility] HospitalAutomated blood eosinophil count 2019-10-21 05:15:00* Test Item Value Reference Range Interpretation Comments Eosinophils # (Auto) (test code = 711-2) 0.0 0.0-0.4 [facility] basophil count (count/volume)2019-10-21 05:15:00* Test Item Value Reference Range Interpretation Comments Basophils # (Auto) (test code = 704-7) 0.0 0.0-0.1 [facility] HospitalFluoroscopic procedure less than one hour ckmkhfyf9514-38-35 05:15:00* Test Item Value Reference Range Interpretation Comments Absolute Immature Granulocyte (auto (doug t code = Absolute Immature Granulocyte (auto) 0.11 0-0.1 [facility] HospitalFluoroscopic procedure less than one hour fygxrydu8439-47-12 05:15:00* Test Item Value Reference Range Interpretation Comments Differential Total Cells Counted (test code = Marcia tial Total Cells Counted) 100 [facility] blood neutrophils/100 leukocytes 2019-10-21 05:15:00* Test Item Value Reference Range Interpretation Comments Neutrophils % (Manual) (test code = 33752-1) 95 40-74 [facility] blood lymphocytes/100 leukocytes 2019-10-21 05:15:00* Test Item Value Reference Range Interpretation Comments Lymphocytes % (Manual) (test code = 737-7) 3 19-48 [facility] blood monocytes/100 leukocytes 2019-10-21 05:15:00* Test Item Value Reference Range Interpretation Comments Monocytes % (Manual) (test code = 744-3) 2 3.4-9.0 [facility] platelets count by estimate (number/volume)2019-10-21 05:15:00* Test Item Value Reference Range Interpretation Comments Platelet Estimate (test code = 16568-0) SLIGHTLY DECREASED [facility] HospitalPlatelet jwwdfxubin5569-52-48 05:15:00* Test Item Value Reference Range Interpretation Comments Platelet Morphology Comment (test code = 95189-5) NORMAL [facility] HospitalBlood anisocytosis detection by light vynyafjzbv8641-46-78 05:15:00* Test Item Value Reference Range Interpretation Comments Anisocytosis (test code = 702-1) SLIGHT [facility] HospitalBlmonticello hospital macrocytes detection by light dsjogeqkpd7783-06-58 05:15:00* Test Item Value Reference Range Interpretation Comments Macrocytosis (test code = 738-5) SLIGHT [facility] dacrocytes detection by light kjiysaibfv4352-01-32 05:15:00* Test Item Value Reference Range Interpretation Comments Tear Drop Cells (test code = 7791-7) FEW [facility] HospitalRB strgyevxtx1967-22-93 05:15:00* Test Item Value Reference Range Interpretation Comments Red Cell Morphology Comment (test code = 6742-1) NORMAL [facility] HospitalFluoroscopic procedure less than one hour vvtpkqsf4673-15-38 05:15:00* Test Item Value Reference Range Interpretation Comments Differential Total Cells Counted (test code = Marcia rossikenisha Total Cells Counted) 100 [facility] blood neutrophils/100 leukocytes 2019-10-21 05:15:00* Test Item Value Reference Range Interpretation Comments Neutrophils % (Manual) (test code = 89124-3) 95 40-74 [facility] blood lymphocytes/100 leukocytes 2019-10-21 05:15:00* Test Item Value Reference Range Interpretation Comments Lymphocytes % (Manual) (test code = 737-7) 3 19-48 [facility] blood monocytes/100 leukocytes 2019-10-21 05:15:00* Test Item Value Reference Range Interpretation Comments Monocytes % (Manual) (test code = 744-3) 2 3.4-9.0 [facility] HospitalBlmont[facility]ello [facility] platelets count by estimate (number/volume)2019-10-21 05:15:00* Test Item Value Reference Range Interpretation Comments Platelet Estimate (test code = 67780-0) SLIGHTLY DECREASED [facility] HospitalPlatelet fyrbdfcojy3792-59-25 05:15:00* Test Item Value Reference Range Interpretation Comments Platelet Morphology Comment (test code = 97781-4) NORMAL [facility] HospitalBlood anisocytosis detection by light eeotaofiaw8759-16-61 05:15:00* Test Item Value Reference Range Interpretation Comments Anisocytosis (test code = 702-1) SLIGHT [facility] HospitalBlood macrocytes detection by light mrerhsxhtr0151-16-29 05:15:00* Test Item Value Reference Range Interpretation Comments Macrocytosis (test code = 738-5) SLIGHT [facility] HospitalBlood dacrocytes detection by light henbmubjyo1982-77-23 05:15:00* Test Item Value Reference Range Interpretation Comments Tear Drop Cells (test code = 7791-7) FEW [facility] HospitalRBC hzneodojsd2021-66-76 05:15:00* Test Item Value Reference Range Interpretation Comments Red Cell Morphology Comment (test code = 6742-1) NORMAL [facility] HospitalBlood anisocytosis detection by light jfpjrwwujf2077-11-45 05:15:00* Test Item Value Reference Range Interpretation Comments Anisocytosis (test code = 702-1) SLIGHT [facility] HospitalUS GUIDED WGILRYBRXUJR6561-18-20 09:52:00 [facility] [address] [place] [address] Patient Name: INDRA GALVAN MR #: [id number] : Age/Sex: 38/M Req #: [id number] Adm Physician: KHLOE BOX MD Ordered by: MORGAN ROBERTSON MD Report #: [id number] Location: ICU Room/Bed: ICU [facility] Procedure: [id number] US /US GUIDED PARACENTESIS Exam Date: 10/19/19 Exam Fernando e: 1714 REPORT STATUS: Signed Da te and Time: 10/19/19 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 Pre-operative diagnosis: Ascites Post-operative [...] Under continuous ultrasound guidance a 5 Fr [employer] Checkeh needle catheter was advanced into the peritoneal [...] code = 9813-7) 10.8 6.2-19.4 Performed at: [facility] LabCo[address] [id number] Director: Alli Georges MD, Phone: [phone] Camillus Medical Centererum or plasma cortisol measurement on morning peak specimen (mass/volume)2019-10-20 09:05:00* Test Item Value Reference Range Interpretation Comments Cortisol AM Sample (test code = 9813-7) 10.8 6.2-19.4 Performed at: - [address] [id number] Director: Alli Georges MD, Phone: [phone] County Memorial HospitalPhosphorus dlkgvirvfop6869-75-55 04:30:00* Test Item Value Reference Range Interpretation Comments Phosphorus Level (test code = DUB1193) 1.8 2.3-4.7 [facility] Centererum or plasma thyrotropin measurement by detection limit <= 0.005 miu/l (units/volume)2019-10-20 04:30:00* Test Item Value Reference Range Interpretation Comments Thyroid Stimulating Hormone (TSH) (test code = 67459-2) 0.766 0.350-4.940 [facility] Centererum or plasma thyrotropin measurement by detection limit <= 0.005 miu/l (units/volume)2019-10-20 04:30:00* Test Item Value Reference Range Interpretation Comments Thyroid Stimulating Hormone (TSH) (test code = 88456-3) 0.766 0.350-4.940 [facility] Centererum or plasma thyrotropin measurement by detection limit <= 0.005 miu/l (units/volume)2019-10-20 04:30:00* Test Item Value Reference Range Interpretation Comments Thyroid Stimulating Hormone (TSH) (test code = 41021-5) 0.766 0.350-4.940 [facility] Centerpecimen source identification of body pvpfw7641-21-11 20:37:00* Test Item Value Reference Range Interpretation Comments Body Fluid Type (test code = 64744-0) PERITONEAL [facility] HospitalEvaluation of color of body fluid 2019-10-19 20:37:00* Test Item Value Reference Range Interpretation Comments Body Fluid Color (test code = 6824-7) RED AMBERStarr County Memorial HospitalDetermination of appearance of body gcsvy8031-15-89 20:37:00* Test Item Value Reference Range Interpretation Comments Body Fluid Appearance (test code = 9335-1) CLOUDY [facility] body fluid leukocytes count (number/volume)2019-10-19 20:37:00* Test Item Value Reference Range Interpretation Comments Body Fluid WBC (test code = 6743-9) 88 [facility] body fluid erythrocytes count (number/volume)2019-10-19 20:37:00* Test Item Value Reference Range Interpretation Comments Body Fluid RBC (test code = 6741-3) 2375 [facility] body fluid neutrophils/100 ddgehwlbtb1710-57-54 20:37:00* Test Item Value Reference Range Interpretation Comments Body Fluid Neutrophils (test code = 69872-8) 20 [facility] HospitalBody fluid lymphocyte qewdj6181-15-38 20:37:00* Test Item Value Reference Range Interpretation Comments Body Fluid Lymphocytes (test code = 68497128) 65 [facility] fluid monocyte tedwy7979-22-40 20:37:00* Test Item Value Reference Range Interpretation Comments Body Fluid Monocytes (test code = 67542-0) 5 [facility] other cells manual count 2019-10-19 20:37:00* Test Item Value Reference Range Interpretation Comments Body Fluid Other Cells (test code = 457804418) 10 [facility] HospitalTotal cell kgrts2163-04-38 20:37:00* Test Item Value Reference Range Interpretation Comments Body Fluid Total Cells Counted (test code = 82327-7) 100 [facility] HospitalProthrombin time (PT) in platelet poor plasma by coagulation ntgqx8795-30-44 05:55:00* Test Item Value Reference Range Interpretation Comments Prothrombin Time (test code = 5902-2) 19.4 11.9-14.5 [facility] HospitalINR in Platelet poor plasma by Coagulation zgane2704-24-47 05:55:00* Test Item Value Reference Range Interpretation Comments Prothromb Time International Ratio (test code = 6301-6) 1.54 Oral Anticoagulant Therapy INR Values:1. Low Intensity Therapy 1.5 - 2.02 . Moderate Intensity Therapy 2.0 - 3.03. High Intensity Therapy(1) 2.5 - 3. 54. High Intensity Therapy(2) 3.0 - 4.05. Panic Value INR > 5.0 [facility] Centererum or plasma jrkbf-0-tvhczuuekvt.tumor marker measurement (mass/volume)2019-10-19 05:55:00* Test Item Value Reference Range Interpretation Comments Alpha Fetoprotein (test code = 27652-9) 4.1 0.0-8.3 [facility] Electrochemiluminescence Immunoassay(ECLIA)Values obtained wit h different assay methods or kits cannotbe used interchangeably. Results cannot be interpreted asabsolute evidence of the presence or absence of malignantdisea se.This test is not interpretable in females.Performed at: [facility] [id number] Director: Alli Georges MD, Phone: [phone] Camillus Medical Centererum or plasma folate measurement (mass/volume)2019-10-19 05:55:00* Test Item Value Reference Range Interpretation Comments Folate (test code = 2284-8) >20.0 >3.0 A serum folate concentration of less than 3.1 ng/mL isconsidered to represent cl inical deficiency.Performed at: [facility] [address] [id number] Director: Alli Georges MD, Phone: [phone] Camillus Medical Centererum or plasma vhtmu-8-xsjdintbgri.tumor marker measurement (mass/volume)2019-10-19 05:55:00* Test Item Value Reference Range Interpretation Comments Alpha Fetoprotein (test code = 30795-0) 4.1 0.0-8.3 [facility] Electrochemiluminescence Immunoassay(ECLIA)Values obtained wit h different assay methods or kits cannotbe used interchangeably. Results cannot be interpreted asabsolute evidence of the presence or absence of malignantdisea se.This test is not interpretable in females.Performed at: [facility] [employer] [facility] [address] [id number] Director: Alli Georges MD, Phone: [phone] Camillus Medical Centererum or plasma wxxsj-7-gmgdrgguckm.tumor marker measurement (mass/volume)2019-10-19 05:55:00* Test Item Value Reference Range Interpretation Comments Alpha Fetoprotein (test code = 04761-2) 4.1 0.0-8.3 [facility] Electrochemiluminescence Immunoassay(ECLIA)Values obtained wit h different assay methods or kits cannotbe used interchangeably. Results cannot be interpreted asabsolute evidence of the presence or absence of malignantdisea se.This test is not interpretable in females.Performed at: [facility] [address] [id number] Director: Alli Georges MD, Phone: [phone] [facility]ney [facility] 2019-10-18 21:45:00* Test Item Value Reference Range Interpretation Comments Ammonia (test code = 81217-4) 96 31-123 [facility] HospitalCT ABDOMEN/PELVIS FO8256-71-86 20:02:00 [place] [address] Patient Name: INDRA GALVAN JR MR #: [id number] : Age/Sex: 38/M Req #: [id number] Adm Physician: KHLOE BOX MD Ordered by: MORGAN ROBERTSON MD Report #: [id number] Location: ICU Room/Bed: [place] [address] Procedure: [id number] CT /CT ABDOMEN/PELVIS WO Exam Date: 10/18/19 Exam Time: 1939 REPORT STATUS: Signed EXAM: CT Abdomen and Pelvis WITHOUT contrast INDICATION: GI bleed COMPAR QAMAR: Abdominal CT 10/16/2018. TECHNIQUE: Abdomen and pelvis were scanned utili carolynng a multidetector helical scanner from the lung [...] DO on 10/18/2019 11:30 PM Dictated By: MORIAH MCCARTHY DO 233 0 Transcribed By: CATERINA on 10/18/192329 COPY TO: MORGAN ROBERTSON MD Automated reticulocyte count as percentage of total xiiefhaoiwdi1408-92-49 19:40:00* Test Item Value Reference Range Interpretation Comments Percent Reticulocyte Count (test code = 16219-3) 5.3 0.8-2 .2 [facility]ererum or plasma magnesium measurement (mass/volume)2019-10-18 19:40:00* Test Item Value Reference Range Interpretation Comments Magnesium Level (test code = 66448-2) 1.6 1.3-2.1 [facility] Centererum or plasma creatine kinase measurement (enzymatic activity/volume)2019-10-18 19:40:00* Test Item Value Reference Range Interpretation Comments Creatine Kinase (test code = 2157-6) 24 30-200 [facility] Centererum or plasma creatine kinase MB measurement (mass/volume)2019-10-18 19:40:00* Test Item Value Reference Range Interpretation Comments Creatine Kinase MB (test code = 62611-0) 0.40 0-5.0 [facility] HospitalTroponin I measurement by highly sensitive enzyme glsguabpxad9265-66-04 19:40:00* Test Item Value Reference Range Interpretation Comments Troponin I (test code = 33721-5) 0.003 0-0.300 [facility] HospitalCHEST SINGLE (PORTABLE)2019-10-18 14:56:00 [facility] [address] [place] [address] Patient Name: INDRA GALVAN MR #: [id number] : 1980 Age/Sex: 38/M Req #: [id number] Adm Physician: KHLOE BOX MD Ordered by: MARITZA SANTANA MD Report #: [id number] Location: ICU Room/Bed: [place] [address] Procedure: [id number] DX/ CHEST SINGLE (PORTABLE) Exam Date: 10/18/19 [...] 10/18/191457 COPY TO: MARITZA SANTANA MD ABDOMEN BSYGXUI7398-16-27 14:43:00 [place] [address] Patient Name: INDRA GALVAN JR MR #: [id number] : 1980 Age/Sex: 38/M Req #: [id number] Adm Physician: KHLOE BOX MD Ordered by: MORGAN ROBERTSON MD Report #: [id number] Location: ICU Room/Bed: ICU 191 Procedure: [id number] US /US ABDOMEN LIMITED Exam Date: 10/18/19 [...] MD Fluoroscopic procedure less than one hour bzmqxpzq8977-11-46 11:38:00* Test Item Value Reference Range Interpretation [...] under 564(g) of the ACT.Testing performed by [facility] [place] [address]TLLStarr County Memorial HospitalActivated partial thromboplastin time (aPTT) in platelet poor plasma by coagulation jlpqg7771-00-82 08:58:00* Test Item Value Reference Range Interpretation Comments Activated Partial Thromboplast Time (test code = 02936-9) 46.5 23.8-35.5 [facility]ererum or plasma iron measurement (mass/volume)2019-10-18 08:58:00* Test Item Value Reference Range Interpretation Comments Iron Level (test code = 2498-4) 125 65-175 [facility]ererum or plasma iron binding capacity measurement (mass/volume)2019-10-18 08:58:00* Test Item Value Reference Range Interpretation Comments Total Iron Binding Capacity (test code = 2500-7) 122 261-4 78 [facility] Centererum or plasma iron saturation measurement (mass fraction)2019-10-18 08:58:00* Test Item Value Reference Range Interpretation Comments Percent Iron Saturation (test code = 2502-3) 102 15-50 [facility]ererum or plasma transferrin measurement (mass/volume)2019-10-18 08:58:00* Test Item Value Reference Range Interpretation Comments Transferrin (test code = 3034-6) 87 174-364 [facility]ererum or plasma ferritin measurement (mass/volume)2019-10-18 08:58:00* Test Item Value Reference Range Interpretation Comments Ferritin (test code = 2276-4) 1212.14 21.81-274.66 [facility]-iOmt2441-53-23 08:58:00* Test Item Value Reference Range Interpretation Comments B-Type Natriuretic Peptide (test code = 47216-6) 1195.9 0-100 [facility] HospitalBlood cobalamin (vitamin B12) measurement (mass/volume)2019-10-18 08:58:00* Test Item Value Reference Range Interpretation Comments Vitamin B12 Level (test code = 77118-3) 1331 213-816 [facility] Centererum or plasma hepatitis A virus IgM antibody detection by ujzeykzlrvy5783-90-05 08:58:00* Test Item Value Reference Range Interpretation Comments Hepatitis A IgM Antibody (test code = 10035-4) Negative Negativ e [facility] Centererum or plasma hepatitis B virus surface antigen detection by xsumebntrvg9729-01-97 08:58:00* Test Item Value Reference Range Interpretation Comments Hepatitis B Surface Antigen (test code = 5196-1) Negative Negat mumtaz [facility] Centererum or plasma hepatitis B virus core IgM antibody detection by hmtwfmjmxpo9166-34-88 08:58:00* Test Item Value Reference Range Interpretation Comments Hepatitis B Core IgM Antibody (test code = 14500-8) Negative Ne gative [facility] Centererum hepatitis C virus antibody pugjtfnpq8418-11-70 08:58:00* Test Item Value Reference Range Interpretation Comments Hepatitis C Antibody (test code = 17187-8) 0.1 0.0-0.9 Negative: < 0.8 Indeterminate: 0.8 - 0.9 Positive: > 0.9 The CDC recommends that a positive HCV antibody result be followed up with a HCV Nucleic Acid Amplification test (123511).Performed at: [facility] Lab[address] [id number] Director: Alli Georges MD, Phone: [phone] Methodist Willowbrook Hospitald-cRgc7251-04-45 08:58:00 * Test Item Value Reference Range Interpretation Comments B-Type Natriuretic Peptide (test code = 80103-4) 1195.9 0-100 [facility]ererum or plasma hepatitis A virus IgM antibody detection by ulftxuelnui8042-28-09 08:58:00* Test Item Value Reference Range Interpretation Comments Hepatitis A IgM Antibody (test code = 95422-1) Negative Negativ e [facility]ererum or plasma hepatitis B virus surface antigen detection by tjjmxbhlnps4309-50-23 08:58:00* Test Item Value Reference Range Interpretation Comments Hepatitis B Surface Antigen (test code = 5196-1) Negative Negat mumtaz [facility] Centererum hepatitis C virus antibody djlngjetp5851-88-76 08:58:00* Test Item Value Reference Range Interpretation Comments Hepatitis C Antibody (test code = 05371-2) 0.1 0.0-0.9 Negative: < 0.8 Indeterminate: 0.8 - 0.9 Positive: > 0.9 The CDC recommends that a positive HCV antibody result be followed up with a HCV Nucleic Acid Amplification test (353102).Performed at: - [facility]Co[address] [id number] Director: Alli Georges MD, Phone: [phone] Surgical Hospital of El PasoP Ofn-sQrb9800-37-22 08:58:00 * Test Item Value Reference Range Interpretation Comments B-Type Natriuretic Peptide (test code = 23210-4) 1195.9 0-100 [facility]ererum or plasma hepatitis A virus IgM antibody detection by phejswyrktk6669-69-08 08:58:00* Test Item Value Reference Range Interpretation Comments Hepatitis A IgM Antibody (test code = 69760-2) Negative Negativ e [facility]ererum or plasma hepatitis B virus surface antigen detection by dkzyqiwjvkh2054-70-14 08:58:00* Test Item Value Reference Range Interpretation Comments Hepatitis B Surface Antigen (test code = 5196-1) Negative Negat mumtaz [facility] Centererum hepatitis C virus antibody gfltukbta9603-95-52 08:58:00* Test Item Value Reference Range Interpretation Comments Hepatitis C Antibody (test code = 74028-7) 0.1 0.0-0.9 Negative: < 0.8 Indeterminate: 0.8 - 0.9 Positive: > 0.9 The CDC recommends that a positive HCV antibody result be followed up with a HCV Nucleic Acid Amplification test (182407).Performed at: - LabCoFormerly [facility] HospitalNlzdfgl[address] [place] [id number] Director: Alli Georges MD, Phone: [phone] County Memorial HospitalBlood leukocytes automated count (number/volume)2019-09-27 05:45:00* Test Item Value Reference Range Interpretation Comments White Blood Count (test code = 6690-2) 7.33 4.8-10.8 [facility] HospitalBlmonticello hospital erythrocytes automated count (number/volume)2019-09-27 05:45:00* Test Item Value Reference Range Interpretation Comments Red Blood Count (test code = 789-8) 1.71 4.3-5.7 [facility] HospitalBlood hemoglobin measurement (moles/volume)2019-09-27 05:45:00* Test Item Value Reference Range Interpretation Comments Hemoglobin (test code = 41644-3) 6.0 14.0-18.0 Results called to CINTHYA TOVAR at 0637 on 09/27/19 by Roland Gore. [place]. [facility] HospitalAutomated blood hematocrit (volume fraction)2019-09-27 05:45:00* Test Item Value Reference Range Interpretation Comments Hematocrit (test code = 4544-3) 17.7 38.2-49.6 Results called to CINTHYA TOVAR at 0637 on 09/27/19 by Roland Gore. [place]. [facility] HospitalAutomated erythrocyte mean corpuscular nlkqxz5570-58-35 05:45:00* Test Item Value Reference Range Interpretation Comments Mean Corpuscular Volume (test code = 787-2) 103.5 81-99 [facility] HospitalAutomated erythrocyte mean corpuscular hemoglobin (mass per erythrocyte)2019-09-27 05:45:00* Test Item Value Reference Range Interpretation Comments Mean Corpuscular Hemoglobin (test code = 785-6) 35.1 28-32 [facility] HospitalAutomated erythrocyte mean corpuscular hemoglobin concentration measurement (mass/volume)2019-09-27 05:45:00* Test Item Value Reference Range Interpretation Comments Mean Corpuscular Hemoglobin Concent (test code = 786-4) 33.9 31-35 [facility] HospitalRDW XsjRj-Whw9633-27-01 05:45:00* Test Item Value Reference Range Interpretation Comments Red Cell Distribution Width (test code = 49016-5) 19.9 11.7 -14.4 [facility] HospitalAutomated blood platelet count (count/volume)2019-09-27 05:45:00* Test Item Value Reference Range Interpretation Comments Platelet Count (test code = 777-3) 108 140-360 [facility] HospitalAutomated blood segmented neutrophil count as percentage of total xxyktfvwcy7331-21-19 05:45:00* Test Item Value Reference Range Interpretation Comments Neutrophils (%) (Auto) (test code = 34528-0) 74.2 38.7-80.0 [facility] HospitalAutomated blood lymphocyte count as percentage ot total yjygidckfr6395-21-45 05:45:00* Test Item Value Reference Range Interpretation Comments Lymphocytes (%) (Auto) (test code = 736-9) 8.6 18.0-39.1 [facility] HospitalAutomated blood monocyte count as percentage of total mwtzzunoqt8253-70-18 05:45:00* Test Item Value Reference Range Interpretation Comments Monocytes (%) (Auto) (test code = 5905-5) 12.3 4.4-11.3 [facility] HospitalAutomated blood eosinophil count as percentage of total ujjrtcubmq8811-78-45 05:45:00* Test Item Value Reference Range Interpretation Comments Eosinophils (%) (Auto) (test code = 713-8) 2.7 0.0-6.0 [facility] HospitalAutomated blood basophil count as percentage of total splzhufdgd0364-51-51 05:45:00* Test Item Value Reference Range Interpretation Comments Basophils (%) (Auto) (test code = 706-2) 0.7 0.0-1.0 [facility] HospitalFluoroscopic procedure less than one hour yelavgvm0339-64-24 05:45:00* Test Item Value Reference Range Interpretation Comments IM GRANULOCYTES % (test code = IM GRANULOCYTES %) 1.5 0.0- 1.0 [facility] HospitalAutomated blood neutrophil count 2019-09-27 05:45:00* Test Item Value Reference Range Interpretation Comments Neutrophils # (Auto) (test code = 751-8) 5.4 2.1-6.9 [facility] HospitalBlood lymphocytes count (number/volume) 2019-09-27 05:45:00* Test Item Value Reference Range Interpretation Comments Lymphocytes # (Auto) (test code = 77650-8) 0.6 1.0-3.2 [facility] HospitalBlmonticello hospital monocytes automated count (number/volume)2019-09-27 05:45:00* Test Item Value Reference Range Interpretation Comments Monocytes # (Auto) (test code = 742-7) 0.9 0.2-0.8 [facility] HospitalAutomated blood eosinophil count 2019-09-27 05:45:00* Test Item Value Reference Range Interpretation Comments Eosinophils # (Auto) (test code = 711-2) 0.2 0.0-0.4 [facility] HospitalAutomated blood basophil count (count/volume)2019-09-27 05:45:00* Test Item Value Reference Range Interpretation Comments Basophils # (Auto) (test code = 704-7) 0.1 0.0-0.1 [facility] HospitalFluoroscopic procedure less than one hour asvdueap2657-99-27 05:45:00* Test Item Value Reference Range Interpretation Comments Absolute Immature Granulocyte (auto (doug t code = Absolute Immature Granulocyte (auto) 0.11 0-0.1 [facility]ererum or plasma sodium measurement (moles/volume)2019-09-27 05:45:00* Test Item Value Reference Range Interpretation Comments Sodium Level (test code = 2951-2) 136 136-145 [facility]ererum or plasma potassium measurement (moles/volume)2019-09-27 05:45:00* Test Item Value Reference Range Interpretation Comments Potassium Level (test code = 2823-3) 3.2 3.5-5.1 [facility]ererum or plasma chloride measurement (moles/volume)2019-09-27 05:45:00* Test Item Value Reference Range Interpretation Comments Chloride Level (test code = 2075-0) 102 98-107 [facility] Centererum or plasma carbon dioxide, total measurement (moles/volume)2019-09-27 05:45:00* Test Item Value Reference Range Interpretation Comments Carbon Dioxide Level (test code = 2028-9) 28 22-29 [facility]ererum or plasma anion lfk3892-92-02 05:45:00* Test Item Value Reference Range Interpretation Comments Anion Gap (test code = 24191-8) 9.2 8-16 [facility]ererum or plasma urea nitrogen measurement (mass/volume)2019-09-27 05:45:00* Test Item Value Reference Range Interpretation Comments Blood Urea Nitrogen (test code = 3094-0) 11 7-26 [facility]ererum or plasma creatinine measurement (mass/volume)2019-09-27 05:45:00* Test Item Value Reference Range Interpretation Comments Creatinine (test code = 2160-0) 2.29 0.72-1.25 [facility] Centererum or plasma urea nitrogen/creatinine mass bdtle5248-88-70 05:45:00* Test Item Value Reference Range Interpretation Comments BUN/Creatinine Ratio (test code = 3097-3) 5 6-25 [facility] HospitalEstimated glomerular filtration rate (GFR) yqvnrlqieyzrn2888-33-31 05:45:00* Test Item Value Reference Range Interpretation Comments Estimat Glomerular Filtration Rate (test code = 868921151) 32 >60 Ranges were taken from the National Kidney Disease Education Program and the [facility] literature.Reference ranges:60 or greater: Hkhbca60-65 ( for 3 consecutive months): Chronic kidney disease 15 or less: Kidney failureStarr County Memorial HospitalGlucose dujfwpboezh7005-70-52 05:45:00* Test Item Value Reference Range Interpretation Comments Glucose Level (test code = MJM0432) 109 74-118 [facility] calcium measurement (mass/volume)2019-09-27 05:45:00* Test Item Value Reference Range Interpretation Comments Calcium Level (test code = 24147-2) 7.9 8.4-10.2 [facility] iron measurement (mass/volume)2019-09-27 05:45:00* Test Item Value Reference Range Interpretation Comments Iron Level (test code = 2498-4) 70 65-175 [facility] plasma iron binding capacity measurement (mass/volume)2019-09-27 05:45:00* Test Item Value Reference Range Interpretation Comments Total Iron Binding Capacity (test code = 2500-7) 118 261-4 78 [facility] iron saturation measurement (mass fraction)2019-09-27 05:45:00* Test Item Value Reference Range Interpretation Comments Percent Iron Saturation (test code = 2502-3) 59 15-50 [facility] plasma transferrin measurement (mass/volume)2019-09-27 05:45:00* Test Item Value Reference Range Interpretation Comments Transferrin (test code = 3034-6) 84 174-364 [facility] plasma ferritin measurement (mass/volume)2019-09-27 05:45:00* Test Item Value Reference Range Interpretation Comments Ferritin (test code = 2276-4) 565.91 21.81-274.66 [facility] plasma total bilirubin measurement (mass/volume)2019-09-27 05:45:00* Test Item Value Reference Range Interpretation Comments Total Bilirubin (test code = 1975-2) 11.4 0.2-1.2 [facility] HospitalFluoroscopic procedure less than one hour moycgwsl3196-27-63 05:45:00* Test Item Value Reference Range Interpretation Comments Aspartate Amino Transf (AST/SGOT) (test code = Aspartate Amino Transf (AST/SGOT)) 63 5-34 [facility] or plasma alanine aminotransferase measurement (enzymatic activity/volume)2019-09-27 05:45:00* Test Item Value Reference Range Interpretation Comments Alanine Aminotransferase (ALT/SGPT) (test code = 1742-6) 16 0-55 [facility] HospitalAmmonia Tuv-wHoj8343-75-01 05:45:00* Test Item Value Reference Range Interpretation Comments Ammonia (test code = 70891-1) 129 31-123 [facility] or plasma lactate dehydrogenase measurement (enzymatic activity/volume)2019-09-27 05:45:00* Test Item Value Reference Range Interpretation Comments Lactate Dehydrogenase (test code = 190551701) 160 125-220 [facility] or plasma protein measurement (mass/volume)2019-09-27 05:45:00* Test Item Value Reference Range Interpretation Comments Total Protein (test code = 2885-2) 5.8 6.5-8.1 [facility] plasma albumin measurement (mass/volume)2019-09-27 05:45:00* Test Item Value Reference Range Interpretation Comments Albumin (test code = 1751-7) 2.4 3.5-5.0 [facility] HospitalPlasma globulin measurement (mass/volume) 2019-09-27 05:45:00* Test Item Value Reference Range Interpretation Comments Globulin (test code = 65833-1) 3.4 2.3-3.5 [facility] plasma albumin/globulin mass jvugg7450-95-57 05:45:00* Test Item Value Reference Range Interpretation Comments Albumin/Globulin Ratio (test code = 1759-0) 0.7 0.8-2.0 [facility] or plasma alkaline phosphatase measurement (enzymatic activity/volume)2019-09-27 05:45:00* Test Item Value Reference Range Interpretation Comments Alkaline Phosphatase (test code = 6768-6) 147 40-150 [facility] or plasma lactate dehydrogenase measurement (enzymatic activity/volume)2019-09-27 05:45:00* Test Item Value Reference Range Interpretation Comments Lactate Dehydrogenase (test code = 765829590) 160 125-220 [facility] HospitalQualitative serum or plasma hepatitis B virus e antibody by enzyme bxhdaxtvsnu9560-12-24 05:45:00* Test Item Value Reference Range Interpretation Comments Hepatitis Be Antibody (test code = 11528-6) Negative Negative Performed at: [facility] [address] [id number] Care Management Assistant: Esdras Lemon MD, Phone: [phone] [facility]illus Medical Centererum hepatitis B virus e antigen detection by enzyme immunoassay 2019-09-27 05:45:00* Test Item Value Reference Range Interpretation Comments Hepatitis Be Antigen (test code = 91299-7) Negative Negative Performed at: [facility] [address] [id number] Director: Alli Georges MD, Phone: [phone] Camillus Medical Centererum or plasma lactate dehydrogenase measurement (enzymatic activity/volume)2019-09-27 05:45:00* Test Item Value Reference Range Interpretation Comments Lactate Dehydrogenase (test code = 241440721) 160 125-220 [facility] HospitalQualitative serum or plasma hepatitis B virus e antibody by enzyme wjroouurtie7209-47-88 05:45:00* Test Item Value Reference Range Interpretation Comments Hepatitis Be Antibody (test code = 96995-5) Negative Negative Performed at: [facility] [address] [id number] Care Management Assistant: Esdras Lemon MD, Phone: [phone] [facility]illus Medical Centererum hepatitis B virus e antigen detection by enzyme immunoassay 2019-09-27 05:45:00* Test Item Value Reference Range Interpretation Comments Hepatitis Be Antigen (test code = 45723-2) Negative Negative Performed at: [employer] [id number] Director: Alli Georges MD, Phone: [phone] County Memorial HospitalQualitative serum or plasma hepatitis B virus e antibody by enzyme rtvpspjpabq5547-67-99 05:45:00* Test Item Value Reference Range Interpretation Comments Hepatitis Be Antibody (test code = 40434-1) Negative Negative Performed at: [facility] [address] [id number] Care Management Assistant: Esdras Lemon MD, Phone: [phone] Camillus Medical Centererum hepatitis B virus e antigen detection by enzyme immunoassay 2019-09-27 05:45:00* Test Item Value Reference Range Interpretation Comments Hepatitis Be Antigen (test code = 80553-8) Negative Negative Performed at: [facility] [address] [id number] Director: Alli Georges MD, Phone: [phone] [facility] ZISTPGXB1280-50-78 20:45:00 [facility] [address] [address] Patient Name: INDRA GALVAN JR MR #: [id number] : 1980 Age/Sex: 38/M Req #: [id number] Adm Physician: KHLOE BOX MD Ordered by: LITZY FRYE, VIRGILIO FRYE Report #: [id number] Location: MED/SURG Room/Bed: [facility] Procedure: [id number] US /US ABDOMEN COMPLETE Exam Date: 09/26/19 [...] COPY TO: VIRGILIO GALEANA Stool gastrointestinal hemoglobin pvhrrwmff5011-75-17 19:32:00* Test Item Value Reference Range Interpretation Comments Stool Occult Blood (test code = 2335-8) POSITIVE NEGATIVE [facility] gastrointestinal hemoglobin oezuwzwjc1958-27-78 19:32:00* Test Item Value Reference Range Interpretation Comments Stool Occult Blood (test code = 2335-8) POSITIVE NEGATIVE [facility] gastrointestinal hemoglobin hdisvcpug0541-12-09 19:32:00* Test Item Value Reference Range Interpretation Comments Stool Occult Blood (test code = 2335-8) POSITIVE NEGATIVE [facility] HospitalBlood macrocytes detection by light ffvvjwfzor6390-40-16 11:40:00* Test Item Value Reference Range Interpretation Comments Macrocytosis (test code = 738-5) SLIGHT [facility] HospitalAutomated reticulocyte count as percentage of total idepoufegmuf0906-76-17 11:40:00* Test Item Value Reference Range Interpretation Comments Percent Reticulocyte Count (test code = 35828-8) 11.2 0.8-2 .2 [facility] HospitalProthrombin time (PT) in platelet poor plasma by coagulation qpico9009-66-00 11:40:00* Test Item Value Reference Range Interpretation Comments Prothrombin Time (test code = 5902-2) 20.0 11.9-14.5 [facility] HospitalINR in Platelet poor plasma by Coagulation fngtf3471-92-65 11:40:00* Test Item Value Reference Range Interpretation Comments Prothromb Time International Ratio (test code = 6301-6) 1.60 Oral Anticoagulant Therapy INR Values:1. Low Intensity Therapy 1.5 - 2.02 . Moderate Intensity Therapy 2.0 - 3.03. High Intensity Therapy(1) 2.5 - 3. 54. High Intensity Therapy(2) 3.0 - 4.05. Panic Value INR > 5.0 [facility] HospitalActivated partial thromboplastin time (aPTT) in platelet poor plasma by coagulation kuucm0520-83-22 11:40:00* Test Item Value Reference Range Interpretation Comments Activated Partial Thromboplast Time (test code = 57932-5) 39.4 23.8-35.5 [facility] or plasma conjugated bilirubin measurement (mass/volume)2019-09-26 11:40:00* Test Item Value Reference Range Interpretation Comments Direct Bilirubin (test code = 33581-1) 7.7 0.0-0.5 [facility] or plasma indirect bilirubin measurement (mass/volume)2019-09-26 11:40:00* Test Item Value Reference Range Interpretation Comments Indirect Bilirubin (test code = 1971-1) 5.4 0.3-1.2 [facility] or plasma creatine kinase measurement (enzymatic activity/volume)2019-09-26 11:40:00* Test Item Value Reference Range Interpretation Comments Creatine Kinase (test code = 2157-6) 22 30-200 [facility]ererum or plasma creatine kinase MB measurement (mass/volume)2019-09-26 11:40:00* Test Item Value Reference Range Interpretation Comments Creatine Kinase MB (test code = 51527-0) 0.50 0-5.0 [facility] HospitalTroponin I measurement by highly sensitive enzyme svzcfujnnxr6671-36-62 11:40:00* Test Item Value Reference Range Interpretation Comments Troponin I (test code = 62639-2) 0.012 0-0.300 [facility] HospitalBlood cobalamin (vitamin B12) measurement (mass/volume)2019-09-26 11:40:00* Test Item Value Reference Range Interpretation Comments Vitamin B12 Level (test code = 89451-7) 1410 213816 [facility] HospitalCHEST SINGLE (PORTABLE)2019-09-26 11:24:00 [facility] [address] [place] [address] Patient Name: INDRA GALVAN JR MR #: [id number] : 1980 Age/Sex: 38/M Req #: [id number] Adm Physician: Ordered by: MARYLU KELSEY DO Report #: [id number] Location: ER Room/Bed: Procedure: [id number] DX/CHEST SINGLE (PORTABLE) Exam Date: 09/26/19 Exam [...] COPY TO: MARYLU KELSEY DO MR, ABDOMEN, ZPKP0928-97-64 12:54:00FINAL REPORT MRI of the abdomen with [...] of T10 vertebral b oliver. Signed: Gela Rodirguez MDReport Verified Date/Time: 05/23/2019 12:54:18 Reading Location: [facility] C013X Ortho Consult Reading Room abdomen with/without [...] Rodriguezeport Verified Date/Time: 05/23/2019 12:54:18 Reading Location: [facility] C013X Ortho Consult Reading Room [facility] Metabolic Jtdxx2014-62-48 09:34:00* Test Item Value Reference Range Interpretation Comments Sodium (test code = 2951-2) 139 meq/L 136-145 Potassium (test code = 2823-3) 3.3 meq/L 3.5-5.1 L Chloride (test code = 5-0) 100 meq/L 98-107 CO2 (test code = 2027-9) 30 meq/L 22-29 H BUN (test code = 3094-0) 25 mg/dL 7-21 H Creatinine (test code = 2160-0) 2.87 mg/dL 0.57-1.25 H Glucose (test code = 2345-7) 112 mg/dL 70-105 H Calcium (test code = 95739-2) 8.5 mg/dL 8.4-10.2 EGFR (test code = 26524-9) 25 mL/min/1.73 sq m ESTIMATED GFR IS NOT ACCURATE CREATININE CLEARANCE IN PREDICTING GLOMERULAR FILTRATION RATE. ESTIMATED GFR IS NOT APPLICABLE FOR DIALYSIS PATIENTS. PHILLIP (test code = PHILLIP) Jig Boring Machine Operator For Metal ID - MARRYcsaperkavitha moderately icte waldemar Lab Interpretation (test code = 27969-5) Abnormal [facility] CenterBAS[facility]OL[facility] RYJLC6216-96-37 09:34:00* Test Item Value Reference Range Interpretation [...] GFR IS NOT APPLICABLE FOR DIALYSIS PATIENTS. Jig Boring Machine Operator For Metal ID - Kavon moderately ictericHepatic function avate9950-88-46 09:29:00* Test Item Value Reference Range Interpretation Comments Protein, Total (test code = 2885-2) 6.5 6.0- 8.3 gm/dL Albumin (test code = 92571-7) 3.4 g/dL 3.5-5 L Total Bilirubin (test code = 1975-2) 5.4 mg/dL 0.2-1.2 H Bilirubin, Direct (test code = 1967-7) 2.6 mg/dL 0.1-0.5 H Alkaline Phosphatase (test code = 6768-6) 200 U/L 40-150 H AST (test code = 1920-8) 46 U/L 5-34 H ALT (test code = 1742-6) 12 U/L 6-55 PHILLIP (test code = PHILLIP) Jig Boring Machine Operator For Metal ID - MARRYparminder moderately icte waldemar Lab Interpretation (test code = 89235-8) Abnormal [facility] CenterHEPATIC FUNCTION SQLPV1876-03-86 09:29:00* Test Item Value Reference Range Interpretation [...] (test code = 347) 12 U/L 6-55 [employer] Operator For [employer] ID - ROSIANGSpecimen moderately ictericCBC with platelet count + automated lyik8828-37-17 09:27:00* Test Item Value Reference Range Interpretation [...] K/CU MM L MPV (test code = 53208-1) 8.4 fL 9.4-12.4 L nRBC (test code [...] % 0-1 Lab Interpretation (test code = 70007-7) Abnormal [facility] W/PLT COUNT & AUTO ZWFUPQDPJBLK2168-86-07 09:27:00* Test Item Value Reference Range Interpretation [...] code = 2801) 0 % 0-1 Prothrombin time/CYZ4711-82-60 09:19:00* Test Item Value Reference Range Interpretation [...] heart valves. Lab Interpretation (test code = 17311-9) Abnormal [facility] CenterPROTHROMBIN TIME/YUX7261-76-79 09:19:00* Test Item Value Reference Range Interpretation [...] patie nts wiht mechanical heart valves.MISCELLANEOUS LAB EMCSO9979-98-88 08:04:00* Test Item Value Reference Range Interpretation Comments SCAN RESULT (test code = 4935088) Treadmill tolerance(Non-Nuclear Treadmill)2019-05-15 22:24:56Interface, External Ris In [...] Hi pinedo (8216) on 05/15/2019 10:24:47 [facility] WLNWX3915-13-84 11:48:00* Test Item Value Reference Range Interpretation [...] GFR IS NOT APPLICABLE FOR DIALYSIS PATIENTS. Jig Boring Machine Operator For Metal ID Tanja Cooperecimen slightly ictericBILIRUBIN, BMDHEE0164-15-52 11:32:00* Test Item Value Reference Range Interpretation Comments BILIRUBIN DIRECT (BEAKER) (test code = 706) 2.0 mg/dL 0.1-0.5 H HEPATIC FUNCTION WJYBQ8137-63-69 11:32:00* Test Item Value Reference Range Interpretation [...] (test code = 347) 8 U/L 6-55 [employer] ID Tanja DASILVA MSpecimen slightly ictericCBC W/PLT COUNT & AUTO VMZQSUQMXPGH0624-24-39 11:30:00* Test Item Value Reference Range Interpretation [...] code = 2801) 1 % 0-1 PROTHROMBIN TIME/AAW3093-04-43 11:25:00* Test Item Value Reference Range Interpretation [...] mechanical heart valves.Body fluid culture + gram xnagf4194-70-29 15:44:00* Test Item Value Reference Range Interpretation Comments Result (test code = 6463-4) No growth Gram Stain Result (test code = 1123) No organisms seen [facility] CenterBODY FLUID CULTURE + GRAM KTYXU4848-02-91 15:44:00 * Test Item Value Reference Range Interpretation Comments CULTURE (BEAKER) (test code = 1095) No growth GRAM STAIN RESULT (BEAKER) (test code = 1123) 1+ White blood cells seen GRAM STAIN RESULT (BEAKER) (test code = 47866) No organisms seen Hbcdtuveu6338-11-67 06:38:00* Test Item Value Reference Range Interpretation Comments Magnesium (test code = 54163-6) 1.9 mg/dL 1.6-2.6 PHILLIP (test code = PHILLIP) Jig Boring Machine Operator For Metal ID - ULYSSES M Lab Interpretation (test code = 36898-8) Normal [facility] CenterPhosphorus2020-03-14 06:38:00* Test Item Value Reference Range Interpretation Comments Phosphorus (test code = 2777-1) 3.4 mg/dL 2.3-4.7 PHILLIP (test code = PHILLIP) Jig Boring Machine Operator For Metal ID - ULYSSES M Lab Interpretation (test code = 94755-9) Normal [facility] CenterPHOSPHORUS2020-03-14 06:38:00* Test Item Value Reference Range Interpretation Comments PHOSPHORUS (BEAKER) (test code = 604) 3.4 mg/dL 2.3-4.7 [employer] Operator For [employer] ID - ULYSSES GUOEXHFTGW0066-30-36 06:38:00* Test Item Value Reference Range Interpretation Comments MAGNESIUM (BEAKER) (test code = 627) 1.9 mg/dL 1.6-2.6 [employer] For [employer] ID - ULYSSES MBlood Culture - Routine (Left Venipuncture)2019-05-09 20:01:00* Test Item Value Reference Range Interpretation Comments Result (test code = 6463-4) No growth in 5 days [facility] CenterBLOOD CTMINYW5223-70-55 20:01:00* Test Item Value Reference Range Interpretation Comments CULTURE (BEAKER) (test code = 1095) No growth in 5 days BLOOD UMNAAKH9948-43-36 20:00:00* Test Item Value Reference Range Interpretation Comments CULTURE (BEAKER) (test code = 1095) No growth in 5 days Enhvuokf1765-18-48 16:28:00* Test Item Value Reference Range Interpretation Comments Case Report (test code = 104) Medical Cytology Report Case: [id number] Authorizing Provider: Robbie New MD Collected: 05/07/2019 1920 Ordering Location: [address] Received: 05/08/2019 1443 Pathologist: Iman Yang MD Specimen: Pericardial DIAGNOSIS (test code = 3220) [file] XGZzMjRccWxcbGFuZzEwMzNcaGljaFxmMVxkYmNoXG YmXLkgB0tmBrSfKbPtZdb7QJVqkQBhVNXsUca6WYBrzTYxSTQHfKiqxZ9gPNXkmRwuwA9wkJQ0SJPyaq NnjNWRiP2yUINFpN0qZkV9DtFaRiU5OXYtIMzhcLJsaP2= CPT Code(s) (test code = 3357) u7cyrXBcUTFjwVXbVoCqJEFhKILfk6xjWZWyoWJwSuPcEyHfRgEoJrqbwFJnSUEbZqZfy6zja709ePTo i4ckJADqYiD1dTFlVYJaoOIzA684n4zoa7iytzWseKQ6ZHSaBIW8MLxkiuJsinB7MZbucNAlQkU8MEfc zeMbPEmblxPpszYbVxa5KBFdX555EKO6aCwhu5wtBP Q1QSRsJLXqGwUrGy6ivHJxN462SYZfCFPVCEYavEj3TTBttrRaljJjcUFGb504W376t1qsNEPlyvDfdG eUuujmj0nlS154ACBwoUAzriUtRhPvAEIauHCrgXX7PERbJT9advoxVgGkSS8lcnknMuBpKW6onux0Zj GkEM9uqemnFvPyHDfdNVQvtmoaMXOeh8LavddqZU5z A1Etj8P8kX9kmIIwSBPdjDHaKeUnQEQpkf5muJMwGRryv8JxXNL1znQ9oYNrnBImHLXgJT84Jeogi6Hk GtphINR3JLUgpkJwi2Sqe5fnUaDmggUlU9wlI3NkLMXbSXIiPQLhKcMqpwMgb8Dub6JewDCdmZt8v5zi FAWcJVHrjNptq9blXIZ3LYEjE4W8wLLkv4nxPIxrVP TqcWE5rnehRMmdGEBfcxF7aletOLtbZVJqtCO5ldokIZfgCYLfVuM5yjneYKhlXFQnHUJ7THapw984UH A8HVzmPqjjCKpaRJZagcNdhzOqgQqaUCGcKPAfIAvbZVXxRVbmJPFeRGZcXcLarKsosTzlbQ5kVsUiXy MkAGqhIH7hAVYoE4czzCMvAKObQFOzV9bcSsFphW1hvKqzQQrhseIbVMd0AVA6OPTffu3= CLINICAL DATA (test code = 3355) h7kqnDByCDTfyKZuJiWgYKBxBXUnx7siVIWvaYNkBkBgYbPtIbGlVehjtJQgVIWtRzMir6qhd790cUEw m7wqXVHvRyQ8tVPmJHShlAWuS077w8ebk1ouvcDziKI2MJVyBVJ9EYnuraMzxlE6QQnxpNTyEhY3CSxq duJfXTpoheAvulGhSex8ASPrM782AHF7bTvhl3unTV V9CFSzRGPvDkBnEp5wrNGrM227GKBzLADLZBScyTn7WMSdawPhcaKtpUYUp958Y643h5ivMLDqpeVajA cZkwshr4ftC008CHUnjTKcmkNuToOvEQQwxKBzdCM5BBIfYM3rlortWpCjGD1kwpyaYqQuPH9woxe5Wj IoFX9apltzMnQvCShqEZQrkttgMALph4IhcawkVV6o L9Yrq3X1lN8eiYQhLZTtaUDtArUcQLKofl4usAFdKAhng0PlQWJ7tgX6sMZfgBSvKKDsFM06Gggze6Kz AczpYNX7JYNcpnCrh5Ddp3qsWrRhpkYsI6dxE4SyXGLvHJXvTHOdQvPlxlEhg8Jpl8BtxXEguGc7r9ur LKXoBCQveYrsc0zaCLI7ZJKuZ7P5tNGch4msFAnoVJ ZgsTG9htksGFqmNTIlgnD0wvwpYJfdHLRjuGB3stwwEMvgVKDzQwL9ucycZWpvYHIeIZN9WIyeg827NJ N3THdsUjgzSLqrEYIjcqUytfEuwNrlEBLbVMNkZXzuQHShPPpeOVVuSOOnJhUikLwoyAcanF3dOkAxEa LlYKcaGN9lOHWgT5qbtVXtNZUwXRLeD2skRnQwoY2w zDiwUGodstCfTJLcptghFVScuHAsLLNzBcLroB9aCSEgoNVyrQ9bbDNpbXCumH== SPECIMEN SOURCE (test code = 3377) a9zmlVLpWXScySXzBvMwPTLpNCOim3kbMJGblIMxGtWwPtIbGbVhBebgyLMxKAYtVcVat0rjc364qVHb l9ezOCEaRjT1nOZuATKomMFgT869s7plk8ghqkUyqDS5HAAnHXE9OMweyiBnzbN1YAsbpEJjYnL9GRob wkEaZGmzvsDzdbGeWos2AOAiR980SPL8eMsib2ooYQ Y1IAUhATJqWlIlEw6aaAYhL821EWKaZMKBEVZvpJj2VZImmeLtucGcnUMLc293X180y3skJNLhtlTosO aNqcmut3brJ184GAFvwKWrhyAcCqLzPECdnNUikLK2VDCiIW3fzxvhJcKbVU3fdacrYdXfXI6nefz3Zi AuLT5gkyzmAfDcMKtgKGZiimnaGDGhg1GydzhfXX5c Q6Iry7U8uP3tuPBwERNrjOOvNwKfIFSshe9zfZJsJCjar5JpLWT3jiX7tXWgnIVgRXKjXH22Yldlk6Df BdfmLQP6JCRznvVmb5Kmg6pdOhRrmyWxL4znE7OcNIUiBXAjIBCbQnDaziRgg3Pbh6VjhGSyoPt7h3cj ISUqGKUpnChce3vjFEL9PAUwW2Z4vVDwx4xrYXnxKE UifFK6bwtgDCooDSJqaeW5fohtQYzjELVxwXB2zfkaCIshTZVnNjR6snmpZKblSCWiIOG2USyop173TW E4HYslYjmwYTnpEJChqbPmtzFvyQeiPXQjOWAlTLkiHRFhEFbsUNPeOGZnGnScsJlerKpjnU7tTkAdGs QwSOaoRN5zFRXgQ3pmeGRqKCJlHUBaS1dmEmMtlR4k aFxmMFxmczIwIFBFUklDQVJESUFMIEZMVUlEXHBhcn0= GROSS DESCRIPTION (test code = 3366) w3tumNGcFOIqfDYcXhDyFELrDZHfe8uvFGSkvXImTlYkJlTwSfNsMrjagKBkHNFvVvCyp4vdi459yLTn c1mkRIIwMdA6lOVaLOIoqRYfQ955MJSzQUfby9var0BtFCYnqMOkd2G8LBHBazbtiJl0mSjeK31xe8L2 YhlnY3boOOFeYBHoT2CwOS3uXWQrXps6LDJ2RPG8GQ PbAVHaE4RsLK8ePBCzwZUnWAf2r8vfoJolPHBjXBT7g8vcTBwjkdOlWA2uqo0blGe4u5rkrzAgSBEfGO DoxZPXXMPmG2MjyCypMe6jgLd0lVpaEvhkHIR2Suu4IV1spj41rus2pBvxTFEvdtqdVzP8XCaxHZTsra nwSVu6OLreRWFwbSqyZSbiLGBtjwuzHHjnBFXmbIfx BRitHLJqCrptJUisAPXjTVG8BKabk590NAM4MKvez3hyn9tvbHHtEyr5IPWaJeYtYtdoEOrjo3Rid7br LBCsbs9cILC5fAUpnJejk9A2dNFkAEUeiOEkmhTxCWLnOnO9ZQfxCB2vio27YSUgPHK6pu1ojSCgeMjg bfRxqDVkUNcjJ0EpNWCli885VVUwR0MxWJDxe2B6xk WjYoZfOPYstGD1yrN4QKKlOOp8sCFpenU9jdUwaRLwT1alnJ94QnUrtOPlS3HknJ08AxZmwFCgB4FynY 23TfUwuHCoO3FwtX40EcUlpJNiGFQrnZHeIq9pgMAloFWiv7FzdPAtRRzxT59ho469BYKqgqKhR8vkkZ FhjtosmRNzwxiuUKrbquM9WMGwNGJtHCwvYICyXSUz MyVrpRPjBoYrNlTmnFishIveETxgFwZqPMHhLNuaV1cuEvKsSmTlIoW4IUZziYrkNDAlf09hnMDhtQEg ERhnCPIfrYMhk0KckiDfxRHnIUFfuTzaF9EuZLsqEAVdXYVnONRtbrUVALEqnFDpBHqwJVZnCiXnMZGl cn0= STATEMENT OF ADEQUACY (test code = 2757) Satisfactory Gross assessment was performed at (test code = 2777) [facility], Department of Pathology, [address] [place] [address], Technical component was performed at (test code = 2778 ) [facility], Department of Pathology, [address] [place] [id number], Professional component was performed at (test code = 2 779) [facility], Department of Pathology, [address] [place] [address], [facility]2020-[facility]-13 16:28:00Medical Cytology Report Case: [id number] Authorizing Provider: Robbie New MD Collected: 05/07/2019 1920 Ordering Location: [place] [address] CCU Received: 05/08/2019 1445 Pathologist: Iman Yang MD Specimen: Pericardial PERICARDIAL FLUID (CYTOSPINS): - NEGATIVE FOR MALIGNANCY Signing Pathologist Direct Phone Line: [phone] signed by Iman Yang MD on 05/09/2019 at 4:28 [id number] effusion, cirrhosisPERICARDIAL [id number] mls bloody fluid; 4 cytospinsCollected: 031 120Received: [id number] [facility], Department of P athology, [address] [place] [address], [facility], Department of Pathology, [address] [place] [address] [phone], [facility], [address] [place] [address], YYR/CT, CARDIAC PERF REST AND [id number] 16:05:00Reason for exam:->CADFINAL REPORT PROCEDURE: MYOCARDIAL PERFUSION PET IMAGING (Rest/Stress)CPT CODE: 91179 INDICATION: Assess symptoms/risk factors of possible CAD [...] prior study for comparison. Signed: [facility] Verified Date/ Time: 05/09/2019 16:05:35 Reading Location: [address] [place] P327B Nuc Med Reading R oom Myocardial Perfusion Pet/CT (Rest & Stress)2019-05-09 16:05:00Interface, External Ris In - 05/09/2019 4:07 PM CDTFINAL REPORT PROCEDURE: MYOCARDIAL PERFUSION PET IMAGING (Rest/Stress)CPT CODE: 65719 INDICATION: Assess symptoms/risk factors of possible CAD [...] MDReport Verified Date/Time: 05/09/2019 16:05:35 Reading Location: [address] Fl[place] P327B Nuc Med Reading Room [facility] CenterCom[facility] [id number] 06:54:00* Test Item Value Reference Range Interpretation Comments Protein, Total (test code = 2885-2) 6.1 6.0- 8.3 gm/dL Specimen slightly hemolyzed Albumin (test code = 62536-7) 2.9 g/dL 3.5-5 L Specimen slightly hemolyzed [...] mg/dL 70-105 H Calcium (test code = 82663-9) 8.1 mg/dL 8.4-10.2 L AST (test code = 1920-8) 30 U/L 5-34 Spe cimen slightly hemolyzed ALT (test code = 1742-6) 8 U/L 6-55 Spe cimen slightly hemolyzed EGFR (test code = 75736-1) 16 mL/min/1.73 sq m ESTIMATED GFR IS NOT ACCURATE CREATININE CLEARANCE IN PREDICTING GLOMERULAR FILTRATION RATE. ESTIMATED GFR IS NOT APPLICABLE FOR DIALYSIS PATIENTS. PHILLIP (test code = PHILLIP) Jig Boring Machine Operator For Metal ID - ULYSSES MSpecimen slightly icteric Lab Interpretation (test code = 49090-2) Abnormal [facility]OLIC [id number] 06:54:00* Test Item Value Reference Range Interpretation [...] GFR IS NOT APPLICABLE FOR DIALYSIS PATIENTS. Jig Boring Machine Operator For Metal ID - ULYSSES MSpecimen slightly ictericCBC W/PLT [...] (test code = 2801) 1 % 0-1 [id number] 06:50:00* Test Item Value Reference Range Interpretation Comments MAGNESIUM (BEAKER) (test code = 627) 2.1 mg/dL 1.6-2.6 Specimen slightly hemolyzed Jig Boring Machine Operator For Metal ID - ULYSSES [id number] 06:50:00* Test Item Value Reference Range Interpretation Comments PHOSPHORUS (BEAKER) (test code = 604) 3.4 mg/dL 2.3-4.7 Specimen slightly hemolyzed Jig Boring Machine Operator For Metal ID - ULYSSES [place] 2D Ecupvmpyewwiow1385-99-89 13:37:26Ejection FractionSLEH ECHO HEARTLAB MKCKESSON CPACSInterface, External Ris In - 05/08/2019 1:37 PM CDTTransthoracic Echocardiography Report (TTE) Demographics Patient Name INDRA GALVAN Date of Study 05/08/2019 YAN CORDERO Gender Male Visit Number [id number] Race Unknown Room Number 6213 Number Date of 1980 Referring Physician ROBBIE NEW Age 38 year(s) Machine Operator Hop Worker Renny Yepez Home Advisor Nick Navarro I nterpreting Brandy Jackson MD [...] (>60%) . Left Atrium LA size is bnae-mr-hlgrbryejt enlarged . Right Ventricle Normal right ventricle [...] Ao Root S of Yasmin.: 3.23 cm [facility]2D Echo W/Doppler(CW/PW/Color)2019-05-08 09:47:52Ejection FractionSLEH ECHO HEARTLAB MKCKESSON CPACSInterface, External Ris In - 05/08/2019 9:48 AM CDTTransthoracic Echocardiography Report (TTE) Demographics Patient Name INDRA GALVAN Date of Study 05/07/2019 YAN CORDERO Gender Male Visit Number [id number] Race Unknown Room Number 6213 Number Date of 1980 Referring Robbie New MD Physician Age 38 year(s) Machine Operator Hop Worker Aneudy Jerez Interpreting Physician MELVA Jackson Fellow [...] A moderate-large circumferential pericardial effusion is present. [facility] CenterManual Hahbvwcjzldx5167-53-56 07:53:00* Test Item Value Reference Range Interpretation [...] 3438) Adequate PHILLIP (test code = PHILLIP) Jig Boring Machine Operator For Metal ID - Ivonne Espinal comments: Slide comm ents: Lab Interpretation (test code = 16647-1) Abnormal [facility] W/PLT COUNT & AUTO [id number] 07:53:00* Test Item Value Reference Range Interpretation [...] (CELLAVISION)(BEAKER) (test code = 3438) Cheryl quate Jig Boring Machine Operator For Metal ID - Ivonne Espinal comments: Slide comments: Tzwcwpyvhwueu5770-80-51 04:01:00* Test Item Value Reference Range Interpretation Comments Procalcitonin (test code = 89503-9) 3.64 ng/mL <0.05 H PHILLIP (test code = PHILLIP) SEPSIS RISK (ng/mL)Low: 0.05-0.50Intermediate: 0.51-2.00High: >=2.01 Lab Interpretation (test code = 24990-4) Abnormal [facility] CenterKbwlxvEFRSLVMFQNZAX1359-02-70 04:01:00* Test Item Value Reference Range Interpretation Comments PROCALCITONIN (BEAKER) (test code = 3036) 3.64 ng/mL <0.05 H SEPSIS RISK (ng/mL)Low: 0.05-0.50Intermediate: 0.51-2.00High: > =2.01BASIC METABOLIC [id number] 03:47:00* Test Item Value Reference Range Interpretation [...] GFR IS NOT APPLICABLE FOR DIALYSIS PATIENTS. Jig Boring Machine Operator For Metal ID - LAUREN WSpecimen moderately amgmafxDITWDKHTGR6947-00-14 03:44:00* Test Item Value Reference Range Interpretation Comments PHOSPHORUS (BEAKER) (test code = 604) 2.2 mg/dL 2.3-4.7 L Jig Boring Machine Operator For Metal ID - LAUREN [id number] 03:44:00* Test Item Value Reference Range Interpretation Comments MAGNESIUM (BEAKER) (test code = 627) 1.8 mg/dL 1.6-2.6 Jig Boring Machine Operator For Metal ID - LAUREN Powers Leuko-Red [id number] 23:54:00* Test Item Value Reference Range Interpretation Comments CROSSMATCH (test code = 2264) COMPATIBLE Unit ABO (test code = 5279799) B Pos UNIT NUMBER (test code = 934-0) [id number] Status (test code = 3906575) TX_TIMEINCHART Blood Bank Product (test code = 2263) RED BLOOD CELLS PRODUCT CODE (test code = 933-2) [id number] [facility] CenterCarotid doppler hunlezbhv4342-13-66 16:57:29 Ejection FractionSLEH ECHO HEARTLAB MKCKESSON CPACSRight Impression1. The ad operations intern al carotid artery is within normal [...] CDTPV LAB - Carotid Duplex Study Demograp marychuy Patient Name INDRA GALVAN Date of Study 05/06/2019 YAN CORDERO Age 38 Visit Number [id number] [id number] Date of 1980 Referring Radha Carranza Room Number 9681 Physician SARAH Machine Operator Hop Worker Cb Maki S Interpreting Karen Blackwell Physician [...] left side. - Additional Measurements:ICAPSV/CCAPS V 0.96.ICAEDV/CCAEDV 1.42.[facility] W/PLT COUNT & AUTO [id number] 11:24:00* Test Item Value Reference Range Interpretation [...] (CELLAVISION)(BEAKER) (test code = 3438) Cheryl quate Jig Boring Machine Operator For Metal ID - Marcella OverholtUser comments: Slide comments: COMPREHENSIVE METABOLIC [id number] 07:21:00* Test Item Value Reference Range Interpretation [...] = 353) 19 U/L 5-34 ALT (SGPT) ([facility]) (test code = 347) 8 U/L 6-55 EGFR ([facility]) (test code = 1092) 12 mL/min/1.73 sq m ESTIMATED GFR IS NOT ACCURATE CREATININE CLEARANCE IN PREDICTING GLOMERULAR FILTRATION RATE. ESTIMATED GFR IS NOT APPLICABLE FOR DIALYSIS PATIENTS. Jig Boring Machine Operator For Metal ID - ULYSSES MSpecimen slightly hmffwtk9P Echo W/Doppler(CW/PW/Color) 2019-05-06 15:24:38Ejection FractionSLEH ECHO HEARTLAB MKCKESSON CPACSInterface, External Ris In - 05/06/2019 3:24 PM CDTTransthoracic Echocardiography Report (TTE) Demographics Patient Name INDRA GALVAN Date of Study 05/06/2019 YAN CORDERO Gender Male Visit Number [id number] Race Unknown Room Number 2454 Number Date of 1980 Referring Robbie New MD Physician Age 38 year(s) Machine Operator Hop Worker Aneudy Jerez Home Advisor Joanna Whitley Interpreting Pratik Pak Physician MD [...] Velocity: 2.75 m/s TR Gradient: 30.26 mmHg [facility] CenterUrine ngwoyjc9889-65-89 10:47:00* Test Item Value Reference Range Interpretation Comments Result (test code = 6463-4) <10,000 col/mL skin chase [facility] CenterCBC W/PLT COUNT & AUTO [id number] 09:56:00* Test Item Value Reference Range Interpretation [...] (CELLAVISION)(BEAKER) (test code = 3438) Cheryl quate Jig Boring Machine Operator For Metal ID - Giselle RuckerEdwin comments: Slide comments: WBC: SEGMENTED WI TH TOXIC GRANULATIONS PRESENT ECG 12 pftr0458-42-22 06:34:13Interface, External Ris In - 05/06/2019 6:34 AM CDTVentricular Rate 128 BPMAtrial Rate 89 BPMQRS Duration 94 msQ-T Interval 336 msQTC Calculation(Bazett) 490 msR [place] 151 degreesT [place] -88 degreesAtrial fibrillationLeft posterior fascicular blockST & T wave abnormality, consider inferior ischemiaST & T wave abnormality, consider anterolateral ischemiaAbnormal ECGWhen compared with ECG of 05-MAY-2019 20:52,Atrial fibrillation PresentInverted T waves have replaced nonspecific T wave abnormality in Inferior leadsInverted T waves have replaced nonspecific T wave abnormality in Anterolateral leadsConfirmed by MD CHELA, INDRA Simon ([id number]) on 05/06/2019 6:34:11 [facility]COM[facility] [id number] 06:25:00* Test Item Value Reference Range Interpretation [...] GFR IS NOT APPLICABLE FOR DIALYSIS PATIENTS. Jig Boring Machine Operator For Metal ID - ULYSSES MSpecimen moderately atowqwkZUJDKQUHS4633-06-48 06:24:00* Test Item Value Reference Range Interpretation Comments MAGNESIUM (BEAKER) (test code = 627) 1.9 mg/dL 1.6-2.6 Jig Boring Machine Operator For Metal ID - ULYSSES MBASIC METABOLIC [id number] 21:58:00* Test Item Value Reference Range Interpretation [...] GFR IS NOT APPLICABLE FOR DIALYSIS PATIENTS. Jig Boring Machine Operator For Metal ID - BSSpecimen moderately ictericTroponin [id number] 21:56:00* Test Item Value Reference Range Interpretation Comments Troponin I (test code = 62344-8) <0.01 0-0.03 PHILLIP (test code = PHILLIP) [...] failure, acidosis, acute neurological disease, and persistent tachyarrhythmia.Jig Boring Machine Operator For Metal ID - BS Lab Interpretation (test code = 58022-6) Normal [facility] CenterTROPONIN [id number] 21:56:00* Test Item Value Reference Range Interpretation [...] acidosis, acute neurological disease, and per sistent tachyarrhythmia.Jig Boring Machine Operator For Metal ID - [id number] 21:49:00* Test Item Value Reference Range Interpretation Comments MAGNESIUM ([facility]) (test code = 627) 1.8 mg/dL 1.6-2.6 Specimen slightly hemolyzed Jig Boring Machine Operator For Metal ID - BSCBC W/PLT COUNT & AUTO [id number] 21:32:00* Test Item Value Reference Range Interpretation Comments WHITE BLOOD CELL COUNT ([facility]) (test code = 775) 9.7 K/ L [...] 2801) 1 % 0-1 Hepatitis B surface btfsmfu0161-16-88 17:35:00* Test Item Value Reference Range Interpretation Comments HBsAg Screen (test code = 5195-3) Nonreactive Nonreactive PHILLIP (test code = PHILLIP) Jig Boring Machine Operator For Metal ID - BS Lab Interpretation (test code = 58010-7) Normal [facility] CenterHEPATITIS B SURFACE [id number] 17:35:00* Test Item Value Reference Range Interpretation Comments HEPATITIS B SURFACE ANTIGEN (2) (BEAKER) (test code = 2585) Nonreactive Nonreactive Jig Boring Machine Operator For Metal ID - BSOccult blood, [id number] 14:45:00* Test Item Value Reference Range Interpretation Comments Occult blood (test code = 2335-8) Negative Negative Lab Interpretation (test code = 57284-2) Normal [facility] CenterOCCULT BLOOD, [id number] 14:45:00* Test Item Value Reference Range Interpretation Comments FECAL OCCULT BLOOD (BEAKER) (test code = 618) Negative Negative Wnmrgiav9911-59-36 10:41:00* Test Item Value Reference Range Interpretation Comments Ferritin (test code = 2276-4) 1081 ng/mL 5-275 H PHILLIP (test code = PHILLIP) Jig Boring Machine Operator For Metal ID - AAHAMID Lab Interpretation (test code = 53592-8) Abnormal [facility] CenterFERRITIN2020-03-09 10:41:00* Test Item Value Reference Range Interpretation Comments FERRITIN (BEAKER) (test code = 361) 1081 ng/mL 5-275 H Jig Boring Machine Operator For Metal ID - AAHAMIDDirect AHG (LUMA)/Direct Vjcoaj6221-50-80 10:38:00* Test Item Value Reference Range Interpretation Comments Direct AHG-IGG (test code = 1006-6) NEGATIVE Direct AHG-C3B, C3D (test code = 1003-3) NEGATVIE [facility] CenterABORH, cyjnjs3337-55-62 10:28:00* Test Item Value Reference Range Interpretation Comments ABO Grouping (test code = 2588) B Rh Factor (test code = 2589) POS [facility] CenterCOMPREHENSIVE METABOLIC [id number] 10:25:00* Test Item Value Reference Range Interpretation [...] GFR IS NOT APPLICABLE FOR DIALYSIS PATIENTS. Jig Boring Machine Operator For Metal YOLANDA HANDY LSpecimen moderately ictericIron, TIBC, % sat. (without ferritin)2019-05-05 10:21:00* Test Item Value Reference Range Interpretation Comments Iron (test code = 2498-4) 88.0 ug/dL 40-160 TIBC (test code = 2500-7) 130 ug/dL 250-450 L Iron % Saturation (test code = 2502-3) 68 % 20-55 H PHILLIP (test code = PHILLIP) Jig Boring Machine Operator For Metal YOLANDA Camacho Lab Interpretation (test code = 22530-4) Abnormal [facility] CenterIRON, TIBC, % SAT. (WITHOUT FERRITIN)2019-05-05 10:21:00* Test Item Value Reference Range Interpretation Comments IRON (BEAKER) (test code = 547) 88.0 ug/dL 40.0-160.0 TOTAL IRON BINDING CAPACITY (BEAKER) (test code = 769) 130 ug/dL 250-450 L IRON % SATURATION (2) (BEAKER) (test code = 2590) 68 % 20-5 5 H Jig Boring Machine Operator For Metal ID - PIAYA LBILIRUBIN, [id number] 10:20:00* Test Item Value Reference Range Interpretation Comments BILIRUBIN DIRECT (BEAKER) (test code = 706) 3.0 mg/dL 0.1-0.5 H Jig Boring Machine Operator For Metal ID - PIAYA LCBC W/PLT COUNT & AUTO [id number] 10:08:00* Test Item Value Reference Range Interpretation [...] code = 2801) 1 % 0-1 Reticulocyte [id number] 10:04:00* Test Item Value Reference Range Interpretation Comments % Retic (test code = 29675-0) 2.3 % 0.5-1.8 H PHILLIP (test code = PHILLIP) Jig Boring Machine Operator For Metal ID - 6000 Lab Interpretation (test code = 21720-2) Abnormal [facility] CenterRETICULOCYTE [id number] 10:04:00* Test Item Value Reference Range Interpretation Comments RETICULOCYTE COUNT PCT (BEAKER) (test code = 575) 2.3 % 0.5- 1.8 H Jig Boring Machine Operator For Metal ID - 6000Lactic acid, otnveg1602-86-23 00:50:00* Test Item Value Reference Range Interpretation Comments Lactate, Venous (test code = 2872) 2.6 mmol/L 0.5-2.2 H PHILLIP (test code = PHILLIP) Jig Boring Machine Operator For Metal ID - PIAYA LSpecimen slightly icteri c Lab Interpretation (test code = 06786-3) Abnormal [facility] CenterLACTIC ACID, [id number] 00:50:00* Test Item Value Reference Range Interpretation Comments LACTATE BLOOD VENOUS (2) (BEAKER) (test code = 2872) 2.6 mmol/L 0 .5-2.2 H Jig Boring Machine Operator For Metal ID - PIAYA LSpecimen slightly ictericStrep pneumoniae eywhfkm8269-66-62 21:50:00* Test Item Value Reference Range Interpretation Comments Strep pneumoniae Antigen (test code = 95022-8) Presump tive negative for pneumococcal pneumonia - [...] the test. Lab Interpretation (test code = 83863-8) [facility] [place] PNEUMONIAE [id number] 21:50:00* Test Item Value Reference Range Interpretation Comments STREP PNEUMONIAE ANTIGEN ([facility]) (test code = 1615) P resumptive negative for pneumococcal pneumonia - see comment Presumptive negative for pneumococcal pneumonia - see commen Presumptive negative for pneumococcal pneumonia, suggesting no current or recent pneumococcal infection. Infection due to S. pneumoniae cannot be ruled out since the antigen present in the sample may be below the detection limit of the test. Legionella antigen, [id number] 21:49:00* Test Item Value Reference Range Interpretation Comments Legionella Urine Antigen (test code = 03747-3) Negative - see comme nt Negative for L. pneumophila serogroup 1 antigen, suggesting no recent or current infection with this serogroup. Legionellosis cannot be ruled out since other serogroups and species may cause disease. [facility] CenterLEGIONELLA ANTIGEN, [id number] 21:49:00* Test Item Value Reference Range Interpretation Comments L. PNEUMOPHILA SEROGP 1 UR AG ([facility]) (test code = 11 56) Negative - see comment Negative for L. pneu mophila serogroup 1 antigen, suggesting no recent or current infection with this serogroup. Legionellosis cannot be ruled out since other serogroups and species may cause disease. Type and screen, automated ([facility] and [facility] only)2019-05-04 21:22:00* Test Item Value Reference Range Interpretation Comments ABO/RH AUTOMATED ([facility]) (test code = 2260) B POSITIVE Ab Scrn (test code = 890-4) NEGATIVE [facility] CenterPROCALCITONIN2020-03-08 20:32:00* Test Item Value Reference Range Interpretation Comments PROCALCITONIN ([facility]) (test code = 3036) 14.51 ng/mL <0.05 HH SEPSIS RISK (ng/mL)Low: 0.05-0.50Intermediate: 0.51-2.00High: > =2.01Urinalysis w/Microscopic + Reflex to [id number] 20:25:00* Test Item Value Reference Range Interpretation Comments Color, UA (test code = 5778-6) Yellow Clarity, UA (test code = 5767-9) Hazy Specific [place], UA (test code = 5811-5) 1.011 1.001-1.035 pH, UA (test code = 5803-2) 5.5 5.0-8.0 Protein, UA (test code = 14951-4) 100 mg/dL Negative A Glucose, UA (test code = 365) 100 mg/dL Negative A Ketones, UA (test code = 2514-8) Negative Negative Bilirubin, UA (test code = 35534-8) Negative Negative Blood, UA (test code = 18727-3) Negative Negative Nitrite, UA (test code = 5802-4) Negative Negative Leukocytes, UA (test code = 5799-2) Negative Negative Urobilinogen, UA (test code = 30382-5) 0.2 mg/dL 0.2-1 RBC, UA (test code = 31331-6) 7 /HPF WBC, UA (test code = 5821-4) 12 /HPF Bacteria, UA (test code = 37139-2) Occasional Mucus (test code = 8247-9) Rare Squam Epithel, UA (test code = 15534-9) 18 /HPF Hyaline Casts, UA (test code = 85232-6) 78 /LPF Casts (test code = 9842-6) 70 /LPF Crystals, Urine (test code = 58358-3) Occasional Yeast (test code = 10567-7) Moderate Specimen Source (test code = 2795) PHILLIP (test code = PHILLIP) Jig Boring Machine Operator For Metal ID - [auto]Jig Boring Machine Operator For Metal ID - tech Lab Interpretation (test code = 78128-0) Abnormal [facility] CenterURINALYSIS W/ REFLEX URINE [id number] 20:25:00* Test Item Value Reference Range Interpretation [...] 1585) Moderate SOURCE(BEAKER) (test code = 2795) Jig Boring Machine Operator For Metal ID - [auto]Jig Boring Machine Operator For Metal ID - techPT/uYEW2667-12-41 20:11:00* Test Item Value Reference Range Interpretation Comments Protime (test code = 5902-2) 18.9 11.9- 14.2 seconds H INR (test code = 6301-6) 1.6 <=5.9 PTT (test code = 18860-3) 40.7 22.5- 36.0 seconds H PHILLIP (test code = PHILLIP) Effective 07/24/2018: PT Refe rence Range ChangeNew: 11.9- 14.2 Previous: 11.7-14.7 RECOMMENDED COUMADIN/WARFARIN INR THERAPY RANGESSTANDARD DOSE: 2.0-3.0 Includes: PROPHYLAXIS for venous thrombosis, sys temic embolization; TREATMENT for venous thrombosis and/or pulmonary embolus.HIGH RISK: Target INR is 2.5-3.5 for patients wiht mechanical heart valves. Lab Interpretation (test code = 40736-8) Abnormal [facility] CenterPT/DHDY6977-22-14 20:11:00* Test Item Value Reference Range Interpretation [...] Range Interpretation Comments BNP (test code = 60690-8) 612 pg/mL 0-100 H PHILLIP (test code = PHILLIP) Jig Boring Machine Operator For Metal ID - DB Lab Interpretation (test code = 25501-7) Abnormal [facility] CenterRapid Influenza A&B Hsrctc4893-86-60 20:00:00* Test Item Value Reference Range Interpretation Comments Rapid Influenza A Antigen (test code = 40824-8) Negative Negative, Inconclusive Rapid influenza B Antigen (test code = 28630-3) Negative Negative, Inconclusive Lab Interpretation (test code = 49018-8) Normal [facility] CenterB-TYPE NATRIURETIC FACTOR (BNP)2019-05-04 20:00:00 * Test Item Value Reference Range Interpretation Comments B-TYPE NATRIURETIC PEPTIDE (BEAKER) (test code = 700) 612 pg/mL 0-100 H Jig Boring Machine Operator For Metal ID - DBTROPONIN [id number] 20:00:00* Test Item Value Reference Range Interpretation [...] acidosis, acute neurological disease, and per sistent tachyarrhythmia.Jig Boring Machine Operator For Metal ID - DBRAPID INFLUENZA A&B [id number] 20:00:00* Test Item Value Reference Range Interpretation Comments RAPID INFLUENZA A AG (BEAKER) (test code = 1622) Negative Negative, Inconclusive RAPID INFLUENZA B AG (BEAKER) (test code = 1623) Negative Negative, Inconclusive DRAIITMKEJ3059-14-52 19:54:00* Test Item Value Reference Range Interpretation Comments PHOSPHORUS (BEAKER) (test code = 604) 2.9 mg/dL 2.3-4.7 Jig Boring Machine Operator For Metal ID - HAHSCSHJNMG7737-20-39 19:54:00* Test Item Value Reference Range Interpretation Comments MAGNESIUM (BEAKER) (test code = 627) 2.0 mg/dL 1.6-2.6 Jig Boring Machine Operator For Metal ID - DBCOMPREHENSIVE METABOLIC [id number] 19:54:00* Test Item Value Reference Range Interpretation [...] GFR IS NOT APPLICABLE FOR DIALYSIS PATIENTS. Jig Boring Machine Operator For Metal ID - DBSpecimen slightly ictericCBC W/PLT COUNT [...] = 2801) 1 % 0-1 LACTIC ACID, [id number] 19:48:00* Test Item Value Reference Range Interpretation Comments LACTATE BLOOD VENOUS (2) (BEAKER) (test code = 2872) 2.7 mmol/L 0 .5-2.2 H Specimen slightly hemolyzed Jig Boring Machine Operator For Metal ID - DBSpecimen slightly ictericCRITICAL [id number] 18:47:50Jimena Calhoun MD 05/04/2019 9:12 PMCritical CarePerformed by: Jimena Calhoun, MDAuthorized by: Jimena Calhoun MD Total critical [...] condition and r eview of old charts. [facility] CenterRAD, CHEST, 1 VIEW, NON [...] MDReport Verified Date/Time: 05/04/2019 18:08:08 Reading Location: [address] Transitional Reading Room chest 1 view portable / qralekw5649-42-11 18:08:00Interface, External Ris In - 05/04/2019 6:10 PM CDTFINAL REPORT EXAM: Chest one view COMPARISON: December 22, 2018 Clinical history: Weakness FINDINGS: There is persistent cardiomegaly. There is interval improvement in pulmonary edema. The right internal jugular chest tunneled dialysis catheter appears unchanged in position. The regional osseous structures are unremarkable Signed: Sadiq Haines Verified Date/Time: 05/04/2019 18:08:08 Reading Location: [address] Transitional Reading Room [facility] METABOLIC [id number] 11:09:00* Test Item Value Reference Range Interpretation [...] GFR IS NOT APPLICABLE FOR DIALYSIS PATIENTS. Jig Boring Machine Operator For Metal ID - LMSpecimen slightly ictericHEPATIC FUNCTION [id number] 11:04:00* Test Item Value Reference Range Interpretation [...] (test code = 347) 12 U/L 6-55 Jig Boring Machine Operator For Metal ID - LMSpecimen slightly ictericPROTHROMBIN TIME/[id number] 10:47:00 * Test Item Value Reference Range [...] mechanical heart valves.CBC W/PLT COUNT & AUTO YDJEVBGFSNTH9210-28-42 10:40:00* Test Item Value Reference Range Interpretation [...] = 2801) 0 % 0-1 BASIC METABOLIC [id number] 11:22:00* Test Item Value Reference Range Interpretation [...] GFR IS NOT APPLICABLE FOR DIALYSIS PATIENTS. Jig Boring Machine Operator For Metal ID - NTPSpecimen slightly ictericHEPATIC FUNCTION [id number] 11:09:00* Test Item Value Reference Range Interpretation [...] (test code = 347) 16 U/L 6-55 Jig Boring Machine Operator For Metal ID - NTPSpecimen slightly ictericCBC W/PLT COUNT [...] = 2801) 0 % 0-1 No clotPROTHROMBIN TIME/[id number] 11:03:00* Test Item Value Reference Range Interpretation [...] patie nts wiht mechanical heart valves.COMPREHENSIVE METABOLIC [id number] 12:23:00* Test Item Value Reference Range Interpretation [...] APPLICABLE FOR DIALYSIS PATIENTS. Specimen slightly ictericBILIRUBIN, [id number] 12:18:00* Test Item Value Reference Range Interpretation Comments BILIRUBIN DIRECT (BEAKER) (test code = 706) 2.4 mg/dL 0.1-0.5 H CBC W/PLT COUNT & AUTO [id number] 12:16:00* Test Item Value Reference Range Interpretation [...] code = 2801) 1 % 0-1 PROTHROMBIN TIME/[id number] 12:09:00* Test Item Value Reference Range Interpretation [...] patie nts wiht mechanical heart valves.HLA TYPING [id number] 21:42:00* Test Item Value Reference Range Interpretation [...] and its performance characteristics determined by the [facility] Laboratory. It has not been [...] to perform high complexity clinical laboratory testing. [facility] CenterHLA TYPING [id number] 21:42:00* Test Item Value Reference Range Interpretation Comments HLA-DR AG1 (test code = 3465) 15 HLA-DR AG2 (test code = 4902) 4 HLA-DR AG4-2 (test code = 3241) [...] and its performance characteristics determined by the [facility] Laboratory. It has not been [...] to perform high complexity clinical laboratory testing. [facility] CenterCOMPREHENSIVE METABOLIC [id number] 12:19:00* Test Item Value Reference Range Interpretation [...] APPLICABLE FOR DIALYSIS PATIENTS. Specimen moderately ictericBILIRUBIN, [id number] 12:18:00* Test Item Value Reference Range Interpretation Comments BILIRUBIN DIRECT (BEAKER) (test code = 706) 4.1 mg/dL 0.1-0.5 H U/S, PELVIS, WITH [id number] 11:35:00Reason for Exam:->esrd/kidney transplant evaluationFINAL REPORT Pelvic [...] MDReport Verified Date/Time: 02/03/2019 11:35:01 Reading Location: [address] Radiology Reading Room pelvis with qjxcqkz4250-65-72 11:35:00Interface, External Ris In - 02/03/2019 11:37 [...] Unremarkable pelvic vasculature. Sign ed: Keith Garcia MDReport Verified Date/Time: 02/03/2019 11:35:01 Reading Locati on: [address] Radiology Reading Room [facility] CenterPROTHROMBIN TIME/[id number] 11:12:00* Test Item Value Reference Range Interpretation [...] mechanical heart valves.CBC W/PLT COUNT & AUTO RZZVPPYPNXNC2828-53-18 11:10:00* Test Item Value Reference Range Interpretation [...] 2801) 1 % 0-1 AB SPECIFICITY CLASS [id number] 09:48:00* Test Item Value Reference Range Interpretation Comments AB Specificity Class I (test code = 3457) NO CLASS I A NTIBODY DETECTED WITH MFIs > 4000 PHILLIP (test code = PHILLIP) Disclaimer: This test was de veloped and its performance characteristics determined by the [facility] Laboratory. It has not been [...] to perform high complexity clinical laboratory testing. [facility] CenterFLOW PRA CLASS I WITH REFLEX TO ANTIBODY BYOZXKVZLZI9833-10-48 10:06:00* Test Item Value Reference Range Interpretation Comments Flow Class I Percent Positive (test code = 3229) 20 PHILLIP (test code = PHILLIP) Disclaimer: This test was de veloped and its performance characteristics determined by the [facility] Laboratory. It has not been [...] to perform high complexity clinical laboratory testing. [facility] CenterFLOW PRA CLASS II WITH REFLEX TO ANTIBODY MOAGEMICRMQ5851-07-37 10:06:00* Test Item Value Reference Range Interpretation Comments Flow Class II Percent Positive (test code = 3231) 0 PHILLIP (test code = PHILLIP) Disclaimer: This test was de veloped and its performance characteristics determined by the [facility] Laboratory. It has not been [...] to perform high complexity clinical laboratory testing. [facility] CenterMISCELLANEOUS LAB [id number] 07:41:00* Test Item Value Reference Range Interpretation Comments SCAN RESULT (test code = 7694186) Jnelbaudnyi7917-16-44 19:31:00* Test Item Value Reference Range Interpretation Comments Haptoglobin (test code = 4542-7) 14 mg/dL 14-258 Lab Interpretation (test code = 75837-1) Normal [facility] CenterHAPTOGLOBIN2019-11-23 19:31:00* Test Item Value [...] % 20-5 5 H Vitamin B12 and Xjjayr1992-04-22 19:16:00* Test Item Value Reference Range Interpretation Comments Vitamin B12 (test code = 2132-9) 1988 pg/mL 213-816 H Folate (test code = 2284-8) 17.8 ng/mL >=7.0 Lab Interpretation (test code = 13257-3) Abnormal [facility] CenterVITAMIN B12 AND [id number] 19:16:00* Test Item Value Reference Range Interpretation Comments VITAMIN B12 (BEAKER) (test code = 774) 1988 pg/mL 213-816 H FOLATE (BEAKER) (test code = 362) 17.8 ng/mL >=7.0 [id number] 19:04:00* Test Item Value Reference Range Interpretation Comments FERRITIN (BEAKER) (test code = 361) 1523 ng/mL 5-275 H Lactate dehydrogenase (LDH)2019-01-18 18:27:00* Test Item Value Reference Range Interpretation Comments LDH (test code = 2532-0) 192 U/L 125-220 Lab Interpretation (test code = 47775-7) Normal [facility] CenterLACTATE DEHYDROGENASE (LDH)2019-01-18 18:27:00* Test Item Value Reference Range Interpretation Comments LACTATE DEHYDROGENASE (BEAKER) (test code = 635) 192 U/L 125-2 20 Hemoglobin and cfzmbsqsii1395-13-32 11:26:00* Test Item Value Reference Range Interpretation Comments Hemoglobin (test code = 786-4) 7.5 13.7- 17.5 GM/DL L Hematocrit (test code = 4544-3) 23.0 % 40.1-51 L Lab Interpretation (test code = 39187-8) Abnormal [facility] CenterHEMOGLOBIN AND QRKJEFRMMV1525-57-16 11:26:00* Test Item Value Reference Range Interpretation [...] K/CU MM L MPV (test code = 27647-3) 10.1 fL 9.4-12.4 nRBC (test code = 413) 0 0- 0 /100 WBC Lab Interpretation (test code = 62234-1) Abnormal [facility] CenterCBC (HEMOGRAM ONLY)2019-01-18 03:09:00* Test [...] WBC 0 -0 Alpha fetoprotein (AFP), tumor weurye9213-18-63 17:58:00* Test Item Value Reference Range Interpretation Comments Alpha-Fetoprotein (test code = 1834-1) 2.7 ng/mL <10.0 Lab Interpretation (test code = 98203-2) Normal [facility]PHA FETOPROTEIN (AFP), TUMOR [id number] 17:58:00* Test Item Value Reference Range Interpretation Comments ALPHA-FETOPROTEIN (BEAKER) (test code = 1094) 2.7 ng/mL <10.0 BASIC METABOLIC [id number] 17:09:00* Test Item Value Reference Range Interpretation [...] FOR DIALYSIS PATIENTS. Specimen moderately ictericHEPATIC FUNCTION [id number] 17:08:00* Test Item Value Reference Range Interpretation [...] Specimen moderately ictericCBC W/PLT COUNT & AUTO EQMFNTMZNVID6276-61-07 16:55:00* Test Item Value Reference Range Interpretation [...] code = 2801) 0 % 0-1 PROTHROMBIN TIME/JRZ6131-34-22 16:52:00* Test Item Value Reference Range Interpretation [...] patie nts wiht mechanical heart valves.BASIC METABOLIC WWPWI5839-16-82 07:35:00* Test Item Value Reference Range Interpretation [...] NOT APPLICABLE FOR DIALYSIS PATIENTS. Specimen markedly ndjuycdDIMGHJXRN7022-13-83 07:18:00* Test Item Value Reference Range Interpretation Comments MAGNESIUM (BEAKER) (test code = 627) 2.1 mg/dL 1.6-2.6 HEPATIC FUNCTION YERKB1501-91-07 07:18:00* Test Item Value Reference Range Interpretation [...] 347) 16 U/L 6-55 Specimen markedly ictericPROTHROMBIN TIME/AXJ7822-30-28 06:41:00* Test Item Value Reference Range Interpretation [...] = 413) 0 /100 WBC 0 -0 GXZVNSQOQ5995-98-42 05:08:00* Test Item Value Reference Range Interpretation Comments MAGNESIUM (BEAKER) (test code = 627) 2.0 mg/dL 1.6-2.6 HEPATIC FUNCTION [id number] 05:08:00* Test Item Value Reference Range Interpretation [...] 18 U/L 6-55 Specimen markedly ictericBASIC METABOLIC UUBLT3647-23-96 05:08:00* Test Item Value Reference Range Interpretation [...] APPLICABLE FOR DIALYSIS PATIENTS. Specimen markedly ictericPROTHROMBIN TIME/RST1233-05-86 04:55:00* Test Item Value Reference Range Interpretation [...] = 413) 0 /100 WBC 0 -0 Rbdkgbe8581-35-28 10:14:00* Test Item Value Reference Range Interpretation Comments Ethanol Lvl (test code = 5643-2) <10 <=10 mg/dL Lab Interpretation (test code = 17152-1) Normal [facility] CenterETHANOL2019-11-09 10:14:00* Test Item Value Reference Range Interpretation Comments ETHANOL (BEAKER) (test code = 400) < mg/dL <=10 BASIC METABOLIC NIWTQ8538-95-99 05:20:00* Test Item Value Reference Range Interpretation [...] FOR DIALYSIS PATIENTS. Specimen markedly ictericHEPATIC FUNCTION [id number] 05:19:00* Test Item Value Reference Range Interpretation [...] Specimen markedly ictericCBC W/PLT COUNT & AUTO YWPHAUOCSMLD4460-61-22 05:05:00 * Test Item Value Reference Range [...] = 2801) 0 % 0-1 BASIC METABOLIC [id number] 22:30:00* Test Item Value Reference Range Interpretation [...] FOR DIALYSIS PATIENTS. Specimen markedly ictericHEPATIC FUNCTION [id number] 22:26:00* Test Item Value Reference Range Interpretation [...] = 347) 15 U/L 6-55 Specimen markedly ictericPT/QNZZ8363-09-10 22:22:00* Test Item Value Reference Range Interpretation [...] mechanical heart valves.CBC W/PLT COUNT & AUTO KVPODYLDBWSA2006-65-71 22:19:00* Test Item Value Reference Range Interpretation [...] code = 2801) 1 % 0-1 BLOOD KKLBJUD0619-95-93 11:00:00* Test Item Value Reference Range Interpretation Comments CULTURE (BEAKER) (test code = 1095) No growth in 5 days HEPATIC FUNCTION [id number] 09:42:00* Test Item Value Reference Range Interpretation [...] 347) 17 U/L 6-55 Specimen markedly ictericBLOOD HEHETGZ0875-29-79 08:00:00* Test Item Value Reference Range Interpretation Comments CULTURE (BEAKER) (test code = 1095) No growth in 5 days BLOOD VICCLDH4972-06-20 08:00:00* Test Item Value Reference Range Interpretation Comments CULTURE (BEAKER) (test code = 1095) No growth in 5 days BLOOD PSORJKY4362-38-58 08:00:00* Test Item Value Reference Range Interpretation Comments CULTURE (BEAKER) (test code = 1095) No growth in 5 days KEFAENWSPXN7630-47-56 05:03:00* Test Item Value Reference Range Interpretation Comments HAPTOGLOBIN (BEAKER) (test code = 366) < mg/dL 14-258 L BASIC METABOLIC OGNSK3583-01-24 05:02:00* Test Item Value Reference Range Interpretation [...] NOT APPLICABLE FOR DIALYSIS PATIENTS. Specimen markedly maokwsgTLQAXXYRTV7010-70-09 04:44:00* Test Item Value Reference Range Interpretation Comments PHOSPHORUS (BEAKER) (test code = 604) 4.4 mg/dL 2.3-4.7 JIKEYGJBN1291-91-48 04:44:00* Test Item Value Reference Range Interpretation Comments MAGNESIUM (BEAKER) (test code = 627) 2.1 mg/dL 1.6-2.6 CBC W/PLT COUNT & AUTO QQPLXKTOZEAE0625-30-02 04:40:00* Test Item Value Reference Range Interpretation [...] = 2801) 0 % 0-1 Vancomycin level, vlpypj3569-75-96 04:39:00* Test Item Value Reference Range Interpretation Comments Vancomycin Rm (test code = 43097-9) 16.4 ug/mL PHILLIP (test code = PHILLIP) Reference Range: No Normals [facility] CenterVANCOMYCIN LEVEL, URUQBV2674-00-14 04:39:00* Test Item Value Reference Range Interpretation Comments VANCOMYCIN RANDOM (BEAKER) (test code = 523) 16.4 ug/mL Reference Range: No NormalsLACTATE DEHYDROGENASE (LDH)2018-12-25 13:28:00* Test Item Value Reference Range Interpretation Comments LACTATE DEHYDROGENASE (BEAKER) (test code = 635) 242 U/L 125-2 20 H Venous doppler legs hgzcllpva0544-11-51 12:50:27Ejection FractionSLEH ECHO HEARTLAB MKCKESSON CPACSRight Impression1. [...] 12/25/2018 12:50 PM CDTPV LAB - L [facility] Extremities DVT Study Demographics Patient Name INDRA GALVAN ate of Study 12/24/2018 YAN Fredy 8135 Age 38 Visit Number [id number] Ge nder Male Accession Number [id number] Date of 1980 Referring Audie Hoyt MD Room Number 7604 [facility] rosario Machine Operator Hop Worker Cb Maki S Interpreting Physician MELVA Meeks ProcedureType of Stud [...] in the common femoral, profundafemoral, femoral, popliteal, budget specialist ior tibial or peroneal veins.2. There is [...] in cm/s ; Diameters are measured i [facility] W/PLT COUNT & AUTO AAUDCERXPJPQ7108-64-18 04:43:00* Test Item Value Reference Range Interpretation [...] (test code = 2801) 0 % 0-1 WSEPZWRLHT5899-95-76 04:26:00* Test Item Value Reference Range Interpretation Comments PHOSPHORUS (BEAKER) (test code = 604) 4.7 mg/dL 2.3-4.7 YOIHYSXGF7211-43-20 04:26:00* Test Item Value Reference Range Interpretation Comments MAGNESIUM (BEAKER) (test code = 627) 2.3 mg/dL 1.6-2.6 HEPATIC FUNCTION JSRKZ2624-12-04 04:26:00* Test Item Value Reference Range Interpretation [...] 12 U/L 6-55 Specimen markedly ictericBASIC METABOLIC QJDAE8903-13-15 04:26:00* Test Item Value Reference Range Interpretation [...] APPLICABLE FOR DIALYSIS PATIENTS. Specimen markedly ictericPROTHROMBIN TIME/[id number] 04:22:00* Test Item Value Reference Range Interpretation [...] patie nts wiht mechanical heart valves.BASIC METABOLIC ZAKIJ3027-57-55 04:45:00* Test Item Value Reference Range Interpretation [...] NOT APPLICABLE FOR DIALYSIS PATIENTS. Specimen markedly akapxvvTZEXGPKHIE3857-48-98 04:39:00* Test Item Value Reference Range Interpretation Comments PHOSPHORUS (BEAKER) (test code = 604) 2.4 mg/dL 2.3-4.7 NURXAJJRA8651-31-59 04:39:00* Test Item Value Reference Range Interpretation Comments MAGNESIUM (BEAKER) (test code = 627) 2.0 mg/dL 1.6-2.6 CBC W/PLT COUNT & AUTO KKIOGJLGIQHW9833-55-20 03:32:00* Test Item Value Reference Range Interpretation [...] code = 2801) 0 % 0-1 HEMODIALYSIS TPNKXEROE4405-52-60 23:25:30SawaFlakita camacho RN 12/24/2018 12:23 AMVerified informed consent signed for HD. Patient completed 4 hours of HD via right SC CVC, with net fluid removal of 2 liters. Asymptomatic hypotension throughout treatment. 2 doses of Mannitol 12.5 G administered for BP support. Report given to Naihd Cheng RN. Lab Results Component Value Date [...] Ag Latest Ref Range: Nonreactive Nonreactive [facility] (HEMOGRAM ONLY)2018-12-23 20:21:00* Test Item Value [...] /100 WBC 0 -0 HEPATITIS B SURFACE [id number] 05:28:00* Test Item Value Reference Range Interpretation Comments HEPATITIS B SURFACE ANTIGEN (2) (BEAKER) (test code = 2585) Nonreactive Nonreactive BASIC METABOLIC [id number] 05:28:00* Test Item Value Reference Range Interpretation [...] NOT APPLICABLE FOR DIALYSIS PATIENTS. Specimen markedly avxljrbXNVVIHFACG1392-78-54 05:23:00* Test Item Value Reference Range Interpretation Comments PHOSPHORUS (BEAKER) (test code = 604) 3.4 mg/dL 2.3-4.7 [id number] 05:23:00* Test Item Value Reference Range Interpretation Comments MAGNESIUM (BEAKER) (test code = 627) 2.1 mg/dL 1.6-2.6 VANCOMYCIN LEVEL, [id number] 05:15:00* Test Item Value Reference Range Interpretation Comments VANCOMYCIN RANDOM (BEAKER) (test code = 523) 36.4 ug/mL Reference Range: No NormalsCBC W/PLT COUNT & AUTO MDYWXPDECHCY9115-28-83 04:21:00* Test Item Value Reference Range Interpretation [...] % 0-1 CT, EXTREMITY, LOWER WITHOUT CONTRAST, [id number] 03:00:00FINAL REPORT CT right lower extremity. CLINICAL [...] Signed: Richie Griffin Verified Date/Time: 12/23/2018 03:00:15 [facility] CenterVancomycin level, hmmpor2100-58-20 17:08:00* Test Item Value Reference Range Interpretation Comments Vancomycin Tr (test code = 4092-3) 40.3 ug/mL 10-20 Lab Interpretation (test code = 38737-7) Abnormal [facility] CenterVANCOMYCIN LEVEL, KCZVLO1320-21-15 17:08:00* Test Item Value Reference Range Interpretation [...] 0 -0 RAD, CHEST, 1 VIEW, NON [id number] 08:35:00Reason for exam:->eval pulmonary congestionShould this be [...] Moura Verified Date/Time: 12/22/2018 08:35:05 Reading Location: [facility] C013V Neuro Reading Room Electronically signed by: OMERO MOURA M.D. on 2018 08:35 AM BASIC METABOLIC [id number] 05:18:00* Test Item Value Reference Range Interpretation [...] NOT APPLICABLE FOR DIALYSIS PATIENTS. Specimen markedly sucigqeCTKCLQJLO9630-61-21 05:08:00* Test Item Value Reference Range Interpretation Comments MAGNESIUM (BEAKER) (test code = 627) 2.2 mg/dL 1.6-2.6 Specimen slightly hemolyzed VPSVZCMVXI1345-68-83 05:08:00* Test Item Value Reference Range Interpretation Comments PHOSPHORUS (BEAKER) (test code = 604) 3.9 mg/dL 2.3-4.7 Specimen slightly hemolyzed LACTIC ACID, [id number] 04:40:00* Test Item Value Reference Range Interpretation Comments LACTATE BLOOD VENOUS (2) (BEAKER) (test code = 2872) 1.7 mmol/L 0 .5-2.2 Specimen slightly hemolyzed Specimen markedly rzwurqeElgjtqobog2198-25-93 04:18:00* Test Item Value Reference Range Interpretation Comments Fibrinogen (test code = 3255-7) 195 mg/dl 225-434 L Lab Interpretation (test code = 72856-0) Abnormal [facility] CenterJjyyntPQFDFYWILX2992-88-65 04:18:00* Test Item Value Reference Range Interpretation Comments FIBRINOGEN LEVEL (BEAKER) (test code = 658) 195 mg/dl 225-434 L CBC W/PLT COUNT & AUTO UEJWMVGNKJMV7426-95-22 04:10:00* Test Item Value Reference Range Interpretation [...] = 2801) 1 % 0-1 HEMOGLOBIN AND EGGGJZLQJA6686-59-33 08:38:00* Test Item Value Reference Range Interpretation Comments HEMOGLOBIN (BEAKER) (test code = 410) 7.0 GM/DL 13.7-17.5 L HEMATOCRIT (BEAKER) (test code = 411) 20.7 % 40.1-51.0 L POC-Lactic Acid, Kftohb6949-17-70 04:05:00* Test Item Value Reference Range Interpretation Comments POC-Lactic Acid, Venous (test code = 2805) 1.6 mmol/L 0.9-1.7 [address] [address] Lab Interpretation (test code = 97606-8) Normal [facility] CenterPOCT-LACTIC ACID, [id number] 04:05:00* Test Item Value Reference Range Interpretation Comments POC-LACTIC ACID, VENOUS (BEAKER) (test code = 2805) 1.6 mmol/L 0. 9-1.7 TESTED AT [address] [address] OORQNNZMFOVML7452-88-27 03:40:00* Test Item Value Reference Range Interpretation Comments PROCALCITONIN (BEAKER) (test code = 3036) 1.26 ng/mL <0.05 H SEPSIS RISK (ng/mL)Low: 0.05-0.50Intermediate: 0.51-2.00High: > =2.76Gswuzwa7038-26-77 03:37:00* Test Item Value Reference Range Interpretation Comments Ammonia (test code = 62827-6) 65 18- 72 mol/L Lab Interpretation (test code = 93243-6) Normal [facility]2019-10-26 03:37:00* Test Item Value Reference Range Interpretation Comments AMMONIA (BEAKER) (test code = 348) 65 mol/L 18-72 PT/[id number] 02:35:00* Test Item Value Reference Range Interpretation [...] patie nts wiht mechanical heart valves.COMPREHENSIVE METABOLIC [id number] 02:26:00* Test Item Value Reference Range Interpretation [...] APPLICABLE FOR DIALYSIS PATIENTS. Specimen markedly ictericTROPONIN [id number] 02:24:00* Test Item Value Reference Range Interpretation [...] acidosis, acute neurological disease, and per sistent tachyarrhythmia.FUVECCYVR5282-85-79 02:21:00* Test Item Value Reference Range Interpretation Comments MAGNESIUM (BEAKER) (test code = 627) 2.1 mg/dL 1.6-2.6 Specimen slightly hemolyzed POCT-LACTIC ACID, [id number] 02:17:00* Test Item Value Reference Range Interpretation Comments POC-LACTIC ACID, VENOUS (BEAKER) (test code = 2805) 4.0 mmol/L 0. 9-1.7 H TESTED AT [facility] [address] [facility] [address] CBC W/PLT COUNT & AUTO SUETFAOZFJNS9592-18-86 02:09:00* Test Item Value Reference Range Interpretation [...] % 0-1 RAD, CHEST, 1 VIEW, NON YGXO9626-95-05 01:50:00Reason for exam:->chest painShould this be performed [...] 12/21/2018 01:50:02 , KNEE, COMPLETE (4 VIEWS), [id number] 01:49:00Reason for exam:->LACERATIONFINAL REPORT CLINICAL HISTORY: Trauma [...] Date/Time: 12/21/2018 01:49:02 knee complete 4 views ymsdm0831-15-40 01:49:00Interface, External Ris In - 12/21/2018 1:51 [...] Signed: Katherine Reich Verified Date/Time: 12/21/2018 01:49:02 [facility] 2018-12-21 01:10:14HaVíctor webster MD 12/24/2018 4:23 AMCritical CarePerformed by: Víctor Breen [facility] GROVE CENTERuthorized by: Víctor Breen MD Total critical care [...] patient's condition and review of old charts. [facility] CenterMISCELLANEOUS LAB TBPNU7770-61-00 07:44:00* Test Item Value Reference Range Interpretation Comments SCAN RESULT (test code = 8214558) CBC W/PLT COUNT & AUTO FFVNLKGPUESL1763-05-97 15:07:00* Test Item Value Reference Range Interpretation [...] (BEAKER) (test code = 966) 1+ few WDVEAYAKIL9049-47-20 14:49:00* Test Item Value Reference Range Interpretation Comments PHOSPHORUS ([facility]) (test code = 604) 2.4 mg/dL 2.3-4.7 ANG, TUNNELED CATHETER PWQHZNQVM5531-89-97 10:01:00Reason for exam:->please place tunnelled hd cath for patient on dialysisReason for exam:->patient will need ffp screen and cyclone repairer to procedure due to high inr on [...] the patient's medical record by the nurse. Sprayer Hand: Regis Ortega MD. Division Order Analyst: None. Approach: Right internal jugular vein Estimated [...] by blunt dissection. A 19 cm right Australian Duraflow 2 catheter was brought through the [...] MDReport Verified Date/Time: 11/15/2018 10:01:43 Reading Location: [place] [address] 8 Angio Body Reading Room TIC FUNCTION [id number] 07:46:00* Test Item Value Reference Range Interpretation [...] 46 U/L 6-55 Specimen markedly ictericBASIC METABOLIC AHRZC2924-05-40 07:46:00* Test Item Value Reference Range Interpretation [...] Specimen markedly ictericCBC W/PLT COUNT & AUTO UMBLGZYQUHCM0323-08-16 06:23:00 * Test Item Value Reference Range [...] = 2801) 2 % 0-1 H PROTHROMBIN TIME/VRW6230-45-30 06:20:00* Test Item Value Reference Range Interpretation [...] for patie nts wiht mechanical heart valves.BLOOD VYNXDNJ2817-88-89 02:01:00* Test Item Value Reference Range Interpretation Comments CULTURE (BEAKER) (test code = 1095) No growth in 5 days BLOOD PTMVESX8728-04-02 02:01:00* Test Item Value Reference Range Interpretation Comments CULTURE (BEAKER) (test code = 1095) No growth in 5 days HEPATIC FUNCTION [id number] 08:23:00* Test Item Value Reference Range Interpretation [...] U/L 6-55 H Specimen markedly ictericBASIC METABOLIC ICZDJ7950-24-90 08:15:00* Test Item Value Reference Range Interpretation [...] APPLICABLE FOR DIALYSIS PATIENTS. Specimen markedly ictericPROTHROMBIN TIME/LQX3933-14-24 05:54:00* Test Item Value Reference Range Interpretation [...] mechanical heart valves.CBC W/PLT COUNT & AUTO NQEXRCMAUZEI2502-11-66 05:45:00* Test Item Value Reference Range Interpretation [...] = 2801) 2 % 0-1 H TISSUE [id number] 14:34:00Surgical Pathology Report Case: [id number] Authorizing Provider: Devyn Lantgiua MD Collected: 11/10/2018 1325 Ordering Location: [address] Received: 11/11/2018 0818 Service Pathologist: Be [...] TO FOLLOW. Signing Pathologist Direct Phone Line: [phone] signed by Be Arenas MD on 11/12/2018 [...] is no morphologic or immunophenotypic evidence of lymphoma.83325f0, 10788, 8834 9o1Iokrs polyps A. Sigmoid polyp biopsy. B. Cecum [...] HSV1, HSV2, CMV, CD20, CD3, CD5, CYCLIN T3Ajkrdut Slides Examined: In-house known positive controls were evaluated along with the test tissue. These control slides run a longside of the patients sample show appropriate staining. Internal positive and negative controls when available are evaluated Immunohistochemistry technical t esting was performed at [facility], Pathology Laboratory w here it [...] to perform high complexity clinical lab oratory testing.LGVIFYIORP8063-31-17 08:34:00* Test Item Value Reference Range Interpretation Comments PHOSPHORUS (BEAKER) (test code = 604) 2.3 mg/dL 2.3-4.7 HEMOGLOBIN AND CGRCCHCHTH8929-42-30 08:03:00* Test Item Value Reference Range Interpretation Comments HEMOGLOBIN (BEAKER) (test code = 410) 6.4 GM/DL 13.7-17.5 L HEMATOCRIT (BEAKER) (test code = 411) 19.1 % 40.1-51.0 L BASIC METABOLIC [id number] 06:42:00* Test Item Value Reference Range Interpretation [...] FOR DIALYSIS PATIENTS. Specimen markedly ictericHEPATIC FUNCTION [id number] 06:41:00* Test Item Value Reference Range Interpretation [...] Specimen markedly ictericCBC W/PLT COUNT & AUTO GWOYQXCDHZEB4667-56-68 06:36:00 * Test Item Value Reference Range [...] code = 2801) 1 % 0-1 PROTHROMBIN TIME/FLA0003-11-29 06:29:00* Test Item Value Reference Range Interpretation [...] nts wiht mechanical heart valves.RAD, CHEST, 2 [id number] 23:58:00Reason for exam:->coughFINAL REPORT Chest, two views. [...] MDReport Verified Date/Time: 11/12/2018 23:58:30 Reading Location: [facility] C013W Consult Reading Room TIC FUNCTION [id number] 04:58:00* Test Item Value Reference Range Interpretation [...] U/L 6-55 H Specimen markedly ictericBASIC METABOLIC YUYBN4947-15-10 04:50:00* Test Item Value Reference Range Interpretation [...] Specimen markedly ictericCBC W/PLT COUNT & AUTO DQKSESBIPTWO7272-95-30 04:33:00 * Test Item Value Reference Range [...] code = 2801) 1 % 0-1 PROTHROMBIN TIME/TYT0371-05-21 04:25:00* Test Item Value Reference Range Interpretation [...] patie nts wiht mechanical heart valves.CREATININE, RANDOM [id number] 03:53:00* Test Item Value Reference Range Interpretation Comments CREATININE URINE (BEAKER) (test code = 375) 225.8 mg/dL Reference Range: No NormalsPROTEIN, RANDOM [id number] 03:50:00* Test Item Value Reference Range Interpretation Comments PROTEIN, URINE (BEAKER) (test code = 1569) 122 mg/dL 0-14 H CBC W/PLT COUNT & AUTO IWEBLYXEIEES5008-69-38 08:10:00* Test Item Value Reference Range Interpretation [...] U/L 6-55 H Specimen markedly ictericBASIC METABOLIC [id number] 06:17:00* Test Item Value Reference Range Interpretation [...] APPLICABLE FOR DIALYSIS PATIENTS. Specimen markedly ictericPROTHROMBIN TIME/[id number] 05:07:00* Test Item Value Reference Range Interpretation [...] patie nts wiht mechanical heart valves.HEPATIC FUNCTION [id number] 06:03:00* Test Item Value Reference Range Interpretation [...] U/L 6-55 H Specimen markedly ictericBASIC METABOLIC [id number] 05:52:00* Test Item Value Reference Range Interpretation [...] NOT APPLICABLE FOR DIALYSIS PATIENTS. Specimen [facility] & AUTO [id number] 05:17:00 * Test Item Value Reference Range [...] code = 2801) 1 % 0-1 PROTHROMBIN TIME/[id number] 05:07:00* Test Item Value Reference Range Interpretation [...] for patie nts wiht mechanical heart valves.BLOOD [id number] 02:01:00* Test Item Value Reference Range Interpretation Comments CULTURE (BEAKER) (test code = 1095) No growth in 5 days BLOOD [id number] 02:01:00* Test Item Value Reference Range Interpretation Comments CULTURE (BEAKER) (test code = 1095) No growth in 5 days URINALYSIS W/ REFLEX URINE [id number] 00:30:00* Test Item Value Reference Range Interpretation [...] 42 /LPF SOURCE(BEAKER) (test code = 2795) [id number] 11:29:00* Test Item Value Reference Range Interpretation Comments PHOSPHORUS (BEAKER) (test code = 604) 2.3 mg/dL 2.3-4.7 HEPATIC FUNCTION [id number] 04:57:00* Test Item Value Reference Range Interpretation [...] Specimen markedly ictericCBC W/PLT COUNT & AUTO [id number] 04:42:00 * Test Item Value Reference Range [...] 2801) 2 % 0-1 H BASIC METABOLIC [id number] 04:41:00* Test Item Value Reference Range Interpretation [...] APPLICABLE FOR DIALYSIS PATIENTS. Specimen markedly ictericPROTHROMBIN TIME/[id number] 04:34:00* Test Item Value Reference Range Interpretation [...] patie nts wiht mechanical heart valves.HEPATIC FUNCTION [id number] 17:22:00* Test Item Value Reference Range Interpretation [...] U/L 6-55 H Specimen markedly icteric; notified #[id number] of correctionCANDIDA ANTIGEN WITH REFLEX TO [id number] 11:29:00* Test Item Value Reference Range Interpretation Comments YARI ANTIGEN (BEAKER) (test code = 1782) Positive YARI ANTIGEN [id number] 11:29:00* Test Item Value Reference Range Interpretation Comments YARI ANTIGEN TITER (BEAKER) (test code = 737) :2 CT, CHEST, WITH HIGH RESOLUTION, INTERSTITAL LUNG [id number] 11:29:00 Reason for exam:->liver transplant evaluationFINAL REPORT [...] MDReport Verified Date/Time: 11/08/2018 11:29:31 Reading Location: [facility] C013X Ortho Consult Reading Room , ABDOMEN, [id number] 08:24:00FINAL REPORT MRI of the abdomen. CLINICAL [...] rt Verified Date/Time: 11/08/2018 08:24:53 Reading Location: [facility] Reading Room - [place] [address] [address] [id number] 07:36:00* Test Item Value Reference Range Interpretation Comments CULTURE (BEAKER) (test code = 1095) No growth BASIC METABOLIC [id number] 06:13:00* Test Item Value Reference Range Interpretation [...] NOT APPLICABLE FOR DIALYSIS PATIENTS. Specimen markedly zayetsxJNEJNURYJF3042-62-37 06:07:00* Test Item Value Reference Range Interpretation Comments PHOSPHORUS (BEAKER) (test code = 604) 2.8 mg/dL 2.3-4.7 [id number] 06:07:00* Test Item Value Reference Range Interpretation Comments MAGNESIUM (BEAKER) (test code = 627) 2.2 mg/dL 1.6-2.6 PROTHROMBIN TIME/[id number] 05:21:00* Test Item Value Reference Range Interpretation [...] mechanical heart valves.CBC W/PLT COUNT & AUTO [id number] 05:03:00* Test Item Value Reference Range Interpretation [...] % 0-1 CBC W/PLT COUNT & AUTO [id number] 13:51:00* Test Item Value Reference Range Interpretation [...] WIT TOXIC GRANU LATIONS PRESENT BASIC METABOLIC [id number] 07:53:00* Test Item Value Reference Range Interpretation [...] FOR DIALYSIS PATIENTS. Specimen markedly ictericHEPATIC FUNCTION [id number] 07:53:00* Test Item Value Reference Range Interpretation [...] 80 U/L 6-55 H Specimen markedly ictericPROTHROMBIN TIME/[id number] 07:12:00* Test Item Value Reference Range Interpretation [...] mechanical heart valves.CBC W/PLT COUNT & AUTO [id number] 08:15:00* Test Item Value Reference Range Interpretation [...] U/L 6-55 H Specimen markedly ictericBASIC METABOLIC [id number] 04:58:00* Test Item Value Reference Range Interpretation [...] APPLICABLE FOR DIALYSIS PATIENTS. Specimen markedly ictericPROTHROMBIN TIME/[id number] 04:37:00* Test Item Value Reference Range Interpretation [...] patie nts wiht mechanical heart valves.URINALYSIS W/ [id number] 22:58:00* Test Item Value Reference Range Interpretation [...] 517) Occasional MUCUS (BEAKER) (test code = 0689) Rare SOURCE(BEAKER) (test code = 2795) Urine, Clean Catch HEPATITIS B SURFACE [id number] 20:23:00* Test Item Value Reference Range Interpretation Comments HEPATITIS B SURFACE ANTIBODY (BEAKER) (test code = 647) < mIU/mL <8.0 HEPATITIS B SURFACE [id number] 20:22:00* Test Item Value Reference Range Interpretation Comments HEPATITIS B SURFACE ANTIGEN (2) (BEAKER) (test code = 2585) Nonreactive Nonreactive HEPATITIS B CORE ANTIBODY, [id number] 20:22:00* Test Item Value Reference Range Interpretation Comments HEPATITIS B CORE TOTAL ANTIBODY ([facility]) (test code = 497) N onreactive Nonreactive RAD, CHEST, 1 VIEW, NON [id number] 20:17:00Reason for exam:->pleuritic chest painShould this be [...] Date/Time: 11/05/2018 20:17:29 , NON-TUNNELED DIALYSIS CATH, [id number] 19:49:00Reason for exam:->need dialysisFINAL REPORT PROCEDURE: Non-tunneled [...] site was prepared and draped using all tribe ents of maximal sterile barrier technique including [...] was applied.Catheter placed: Schon XLCathete r size (Australian): 14Catheter length (cm): 15Catheter flush: Heparin (1000 [...] agree with the report as written. Signed: Chiang, Kaiming MDReport Verified Date/Fernando e: 11/05/2018 19:49:40 Reading Location: [place] [id number] [facility] Body Reading Room W/PLT COUNT & AUTO [id number] 10:46:00* Test Item Value Reference Range Interpretation [...] comment: User comments: Slide comments: BASIC METABOLIC [id number] 06:48:00* Test Item Value Reference Range Interpretation [...] FOR DIALYSIS PATIENTS. Specimen markedly ictericHEPATIC FUNCTION [id number] 06:48:00* Test Item Value Reference Range Interpretation [...] 347) 82 U/L 6-55 H Specimen markedly htqqgxrLWLPBVLRIS4090-04-41 06:44:00* Test Item Value Reference Range Interpretation Comments PHOSPHORUS (BEAKER) (test code = 604) 3.7 mg/dL 2.3-4.7 [id number] 06:44:00* Test Item Value Reference Range Interpretation Comments MAGNESIUM (BEAKER) (test code = 627) 2.5 mg/dL 1.6-2.6 PT/[id number] 05:49:00* Test Item Value Reference Range Interpretation [...] RISK: Target INR is 2.5-3.5 for [facility] wiht mechanical heart valves.PROTHROMBIN TIME/[id number] 05:48:00* Test Item Value Reference Range Interpretation [...] RISK: Target INR is 2.5-3.5 for [facility] wi mechanical heart valves.URINALYSIS W/ REFLEX URINE [id number] 20:41:00* Test Item Value Reference Range Interpretation [...] 1574) Rare SOURCE(BEAKER) (test code = 2795) [id number] 14:10:00* Test Item Value Reference Range Interpretation Comments AMMONIA (BEAKER) (test code = 348) 101 mol/L 18-72 H CBC W/PLT COUNT & AUTO [id number] 10:57:00* Test Item Value Reference Range Interpretation [...] (BEAKER) (test code = 474) 1+ few [id number] 10:35:00* Test Item Value Reference Range Interpretation Comments MAGNESIUM (BEAKER) (test code = 627) 2.4 mg/dL 1.6-2.6 HEPATIC FUNCTION [id number] 05:15:00* Test Item Value Reference Range Interpretation [...] U/L 6-55 H Specimen markedly ictericBASIC METABOLIC [id number] 05:14:00* Test Item Value Reference Range Interpretation [...] APPLICABLE FOR DIALYSIS PATIENTS. Specimen markedly ictericPROTHROMBIN TIME/[id number] 04:51:00* Test Item Value Reference Range Interpretation [...] patie nts wiht mechanical heart valves.HEPATIC FUNCTION [id number] 06:30:00* Test Item Value Reference Range Interpretation [...] 52 U/L 6-55 Specimen markedly ictericBASIC METABOLIC [id number] 06:30:00* Test Item Value Reference Range Interpretation [...] APPLICABLE FOR DIALYSIS PATIENTS. Specimen markedly ictericPROTHROMBIN TIME/[id number] 05:42:00* Test Item Value Reference Range Interpretation [...] mechanical heart valves.CBC W/PLT COUNT & AUTO [id number] 05:10:00* Test Item Value Reference Range Interpretation [...] = 2801) 1 % 0-1 BASIC METABOLIC [id number] 07:07:00* Test Item Value Reference Range Interpretation [...] FOR DIALYSIS PATIENTS. Specimen markedly ictericHEPATIC FUNCTION [id number] 07:06:00* Test Item Value Reference Range Interpretation [...] 347) 49 U/L 6-55 Specimen markedly ictericPROTHROMBIN TIME/[id number] 06:21:00* Test Item Value Reference Range Interpretation [...] mechanical heart valves.CBC W/PLT COUNT & AUTO [id number] 06:04:00* Test Item Value Reference Range Interpretation [...] code = 2801) 1 % 0-1 BLOOD [id number] 20:01:00* Test Item Value Reference Range Interpretation Comments CULTURE (BEAKER) (test code = 1095) No growth in 5 days BLOOD [id number] 20:01:00* Test Item Value Reference Range Interpretation Comments CULTURE (BEAKER) (test code = 1095) No growth in 5 days BASIC METABOLIC [id number] 08:05:00* Test Item Value Reference Range Interpretation [...] FOR DIALYSIS PATIENTS. Specimen markedly ictericHEPATIC FUNCTION [id number] 08:04:00* Test Item Value Reference Range Interpretation [...] 347) 37 U/L 6-55 Specimen markedly ictericPROTHROMBIN TIME/[id number] 06:14:00* Test Item Value Reference Range Interpretation [...] mechanical heart valves.CBC W/PLT COUNT & AUTO [id number] 06:13:00* Test Item Value Reference Range Interpretation [...] = 2801) 1 % 0-1 HEPATIC FUNCTION [id number] 06:59:00* Test Item Value Reference Range Interpretation [...] 35 U/L 6-55 Specimen markedly ictericBASIC METABOLIC [id number] 06:56:00* Test Item Value Reference Range Interpretation [...] Specimen markedly ictericCBC W/PLT COUNT & AUTO [id number] 05:54:00 * Test Item Value Reference Range [...] code = 2801) 1 % 0-1 PROTHROMBIN TIME/[id number] 05:46:00* Test Item Value Reference Range Interpretation [...] patie nts wiht mechanical heart valves.SODIUM, RANDOM [id number] 23:21:00* Test Item Value Reference Range Interpretation Comments SODIUM URINE (BEAKER) (test code = 243) 34 meq/L Reference Range: No NormalsBODY FLUID CULTURE + GRAM [id number] 10:20:00* Test Item Value Reference Range Interpretation Comments CULTURE (BEAKER) (test code = 1095) No growth GRAM STAIN RESULT (BEAKER) (test code = 1123) <1+ White blood cells seen GRAM STAIN RESULT (BEAKER) (test code = 64907) No organisms seen HEPATIC FUNCTION [id number] 05:14:00* Test Item Value Reference Range Interpretation [...] 33 U/L 6-55 Specimen markedly ictericBASIC METABOLIC [id number] 05:13:00* Test Item Value Reference Range Interpretation [...] Specimen markedly ictericCBC W/PLT COUNT & AUTO [id number] 04:24:00 * Test Item Value Reference Range [...] = 2801) 2 % 0-1 H PROTHROMBIN TIME/[id number] 04:21:00* Test Item Value Reference Range Interpretation [...] patie nts wiht mechanical heart valves.MISCELLANEOUS LAB [id number] 11:32:00* Test Item Value Reference Range Interpretation Comments SCAN RESULT (test code = 4336990) CBC W/PLT COUNT & AUTO [id number] 09:11:00* Test Item Value Reference Range Interpretation [...] CONCENTRATION (CELLAVISION)(BEAKER) (test code = 3438) Cheryl queliecer Received comment: User comments: Slide comments: BASIC METABOLIC [id number] 05:26:00* Test Item Value Reference Range Interpretation [...] FOR DIALYSIS PATIENTS. Specimen markedly ictericHEPATIC FUNCTION [id number] 05:26:00* Test Item Value Reference Range Interpretation [...] 347) 32 U/L 6-55 Specimen markedly ictericPROTHROMBIN TIME/[id number] 04:51:00* Test Item Value Reference Range Interpretation [...] patie nts wiht mechanical heart valves.HEPATIC FUNCTION [id number] 05:37:00* Test Item Value Reference Range Interpretation [...] 28 U/L 6-55 Specimen markedly ictericBASIC METABOLIC [id number] 05:37:00* Test Item Value Reference Range Interpretation [...] Specimen markedly ictericCBC W/PLT COUNT & AUTO [id number] 04:10:00 * Test Item Value Reference Range [...] = 2801) 2 % 0-1 H PROTHROMBIN TIME/[id number] 04:07:00* Test Item Value Reference Range Interpretation [...] for patie nts wiht mechanical heart valves.BLOOD [id number] 20:01:00* Test Item Value Reference Range Interpretation Comments CULTURE (BEAKER) (test code = 1095) No growth in 5 days BLOOD [id number] 20:01:00* Test Item Value Reference Range Interpretation Comments CULTURE (BEAKER) (test code = 1095) No growth in 5 days U/S, [id number] 16:58:00Worsening leukocytosis, to rule out SBP. Please do not remove >3 LReason for exam:->ascites, rule out SBPFINAL REPORT Paracentesis dated 10/27/2018 Procedure: Ultrasound-guided paracentesis. Preprocedure diagnosis: Ascites Postprocedure diagnosis: Ascites Conscious sedation: None. Radiologist: Keith Garcia M.D. Division Order Analyst: None Anesthesia: 1% Xylocaine mixed with sodium bicarbonate local anesthesia. Te chnique: After obtaining informed consent, ultrasound-guided paracentesis was p erformed under usual sterile technique. Using a 5 chadian drainage catheter, punc ture was made in the right lower quadrant abdomen. Approximately 2000 cc of mayra r yellowish fluid was removed. Patient tolerated the procedure well without comp lication. Complication: None Graft/Implant: None Estimated Blood Loss: None Impr ession: Ultrasound-guided paracentesis. Signed: Keith Garcia MDReport Verified Da te/Time: 10/27/2018 16:58:17 Reading Location: [facility] C013Y CT Body Reading Viktoriya FLUID CELL COUNT WITH [id number] 16:24:00* Test Item Value Reference Range Interpretation [...] code = 2873) EDTA Tube LACTIC ACID, [id number] 13:51:00* Test Item Value Reference Range Interpretation Comments LACTATE BLOOD VENOUS (2) (BEAKER) (test code = 2872) 0.8 mmol/L 0 .5-2.2 Sepsis screeningSpecimen markedly ictericBASIC METABOLIC [id number] 05:53:00* Test Item Value Reference Range Interpretation [...] FOR DIALYSIS PATIENTS. Specimen markedly ictericHEPATIC FUNCTION [id number] 05:51:00* Test Item Value Reference Range Interpretation [...] 347) 30 U/L 6-55 Specimen markedly ictericPROTHROMBIN TIME/[id number] 05:07:00* Test Item Value Reference Range Interpretation [...] mechanical heart valves.CBC W/PLT COUNT & AUTO [id number] 04:52:00* Test Item Value Reference Range Interpretation [...] 2801) 2 % 0-1 H U/S, ABDOMINAL, [id number] 13:11:00Abdomen limited area? Add comment if clarification [...] MDReport Verified Date/Time: 10/26/2018 13:11:32 Reading Location: [address] Reading Room C METABOLIC [id number] 08:13:00* Test Item Value Reference Range Interpretation [...] FOR DIALYSIS PATIENTS. Specimen markedly ictericHEPATIC FUNCTION [id number] 08:13:00* Test Item Value Reference Range Interpretation [...] Specimen markedly ictericCBC W/PLT COUNT & AUTO [id number] 05:46:00 * Test Item Value Reference Range [...] = 2801) 2 % 0-1 H PROTHROMBIN TIME/[id number] 05:43:00* Test Item Value Reference Range Interpretation [...] for patie nts wiht mechanical heart valves.TISSUE [id number] 18:03:00Surgical Pathology Report Case: [id number] Authorizing Provider: Shy Parisi MD Collected: 10/19/201856 Ordering Location: [address] Received: 10/21/2018 0830 Service Pathologist: Jefferson Martin MD Specimens: A) - Large Intestine, Colon - Cecum, HEALING ULCER BX B) - Polyp, Colon - Right/Ascending, TAKEN BY FRCP 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 CPT: 96214; 41000 x 4Addendum electronica lly signed by Samina Arteaga MD on 10/25/2018 at 6:03 PMA. COLON, CECUM , HEALING ULCER, BIOPSY: - COLONIC MUCOSA WITH GRANULATION TISSUE, COMPATIBL E WITH HEALING ULCER - NEGATIVE FOR DYSPLASIA OR CARCINOMA (SEE COMMENT)B. C OLON, ASCENDING, POLYPECTOMY: - TUBULAR ADENOMA Signing Pathologist Dir ect Phone Line: [phone] signed by Jefferson Martin MD on 9 at 7:56 PMA. No dense lymphoid infiltrates are seen in the current biopsy. He matopathology consultation will be issued in an addendum.[id number] X 2Pre and postop diagnosis: gastrointestinal hemorrhage, [...] in toto in B1. CG/pl Performed.HEPATIC FUNCTION [id number] 04:53:00* Test Item Value Reference Range Interpretation [...] 35 U/L 6-55 Specimen markedly ictericBASIC METABOLIC [id number] 04:53:00* Test Item Value Reference Range Interpretation [...] APPLICABLE FOR DIALYSIS PATIENTS. Specimen markedly ictericPROTHROMBIN TIME/[id number] 04:27:00* Test Item Value Reference Range Interpretation [...] mechanical heart valves.CBC W/PLT COUNT & AUTO [id number] 04:13:00* Test Item Value Reference Range Interpretation [...] 2801) 2 % 0-1 H BASIC METABOLIC [id number] 05:54:00* Test Item Value Reference Range Interpretation [...] FOR DIALYSIS PATIENTS. Specimen markedly ictericHEPATIC FUNCTION [id number] 05:54:00* Test Item Value Reference Range Interpretation [...] = 347) 31 U/L 6-55 Specimen markedly jkfwhniSMKCPAKMFJ9618-14-80 05:53:00* Test Item Value Reference Range Interpretation Comments PHOSPHORUS (BEAKER) (test code = 604) 2.0 mg/dL 2.3-4.7 L [id number] 05:53:00* Test Item Value Reference Range Interpretation Comments MAGNESIUM (BEAKER) (test code = 627) 2.2 mg/dL 1.6-2.6 CBC W/PLT COUNT & AUTO [id number] 05:27:00* Test Item Value Reference Range Interpretation [...] = 2801) 2 % 0-1 H PROTHROMBIN TIME/[id number] 05:27:00* Test Item Value Reference Range Interpretation [...] patie nts wiht mechanical heart valves.BASIC METABOLIC [id number] 11:14:00* Test Item Value Reference Range Interpretation [...] FOR DIALYSIS PATIENTS. ADD-ONSpecimen markedly ictericMISCELLANEOUS LAB [id number] 07:36:00* Test Item Value Reference Range Interpretation Comments SCAN RESULT (test code = 3803095) HEPATIC FUNCTION [id number] 05:32:00* Test Item Value Reference Range Interpretation [...] = 347) 33 U/L 6-55 Specimen markedly tlsphwfHHVRTBMZWW2210-61-01 05:21:00* Test Item Value Reference Range Interpretation Comments PHOSPHORUS (BEAKER) (test code = 604) 2.2 mg/dL 2.3-4.7 L [id number] 05:21:00* Test Item Value Reference Range Interpretation Comments MAGNESIUM (BEAKER) (test code = 627) 2.2 mg/dL 1.6-2.6 PROTHROMBIN TIME/[id number] 05:00:00* Test Item Value Reference Range Interpretation [...] mechanical heart valves.CBC W/PLT COUNT & AUTO [id number] 04:51:00* Test Item Value Reference Range Interpretation [...] = 2801) 2 % 0-1 H BLOOD [id number] 20:01:00* Test Item Value Reference Range Interpretation Comments CULTURE (BEAKER) (test code = 1095) No growth in 5 days BLOOD [id number] 20:01:00* Test Item Value Reference Range Interpretation Comments CULTURE (BEAKER) (test code = 1095) No growth in 5 days URINALYSIS W/ REFLEX URINE [id number] 17:08:00* Test Item Value Reference Range Interpretation [...] SOURCE(BEAKER) (test code = 2795) BASIC METABOLIC [id number] 10:18:00* Test Item Value Reference Range Interpretation [...] Specimen markedly ictericCBC W/PLT COUNT & AUTO [id number] 09:06:00 * Test Item Value Reference Range [...] 347) 37 U/L 6-55 Specimen markedly ictericPROTHROMBIN TIME/[id number] 06:10:00* Test Item Value Reference Range Interpretation [...] PERIPHERAL SMR REVIEW (BEAKER) (test code = 8050) Cell counts confi ed. [id number] (BEAKER) (test code = 3369) Colleen Arteaga M.D. (electronic signature) (CELLAVISION MANUAL [...] Slide comments: CBC W/PLT COUNT & AUTO [id number] 09:56:00* Test Item Value Reference Range Interpretation [...] 0 /100 WBC 0 -0 BASIC METABOLIC [id number] 09:01:00* Test Item Value Reference Range Interpretation [...] DIALYSIS PATIENTS. Specimen markedly ictericVITAMIN B12 AND [id number] 08:56:00* Test Item Value Reference Range Interpretation Comments VITAMIN B12 (BEAKER) (test code = 774) > pg/mL 213-816 H FOLATE (BEAKER) (test code = 362) 15.2 ng/mL >=7.0 RETICULOCYTE [id number] 06:56:00* Test Item Value Reference Range Interpretation Comments RETICULOCYTE COUNT PCT (BEAKER) (test code = 575) 8.0 % 0.5- 1.8 H HEPATIC FUNCTION [id number] 06:35:00* Test Item Value Reference Range Interpretation [...] = 347) 34 U/L 6-55 Specimen markedly gwkdalsLYQURJHKUZI1015-96-10 06:12:00* Test Item Value Reference Range Interpretation Comments HAPTOGLOBIN (BEAKER) (test code = 366) 67 mg/dL 14-258 PROTHROMBIN TIME/[id number] 05:26:00* Test Item Value Reference Range Interpretation [...] 452 U/L 125-2 20 H BASIC METABOLIC [id number] 07:58:00* Test Item Value Reference Range Interpretation [...] FOR DIALYSIS PATIENTS. Specimen markedly ictericHEPATIC FUNCTION [id number] 07:38:00* Test Item Value Reference Range Interpretation [...] = 347) 26 U/L 6-55 Specimen markedly wvhgtiiUOHTHLFIF1889-72-52 07:36:00* Test Item Value Reference Range Interpretation Comments MAGNESIUM (BEAKER) (test code = 627) 2.2 mg/dL 1.6-2.6 [id number] 07:36:00* Test Item Value Reference Range Interpretation Comments PHOSPHORUS (BEAKER) (test code = 604) 2.8 mg/dL 2.3-4.7 CBC W/PLT COUNT & AUTO [id number] 06:58:00* Test Item Value Reference Range Interpretation [...] = 2801) 2 % 0-1 H PROTHROMBIN TIME/[id number] 06:50:00* Test Item Value Reference Range Interpretation [...] mechanical heart valves.CBC W/PLT COUNT & AUTO [id number] 22:22:00* Test Item Value Reference Range Interpretation [...] 0 -0 CBC W/PLT COUNT & AUTO [id number] 16:47:00* Test Item Value Reference Range Interpretation [...] 0 -0 CBC W/PLT COUNT & AUTO [id number] 09:23:00* Test Item Value Reference Range Interpretation [...] = 347) 20 U/L 6-55 Specimen markedly fuijcrcNAPQJAFVU7743-21-70 05:23:00* Test Item Value Reference Range Interpretation Comments MAGNESIUM (BEAKER) (test code = 627) 2.2 mg/dL 1.6-2.6 BASIC METABOLIC [id number] 05:23:00* Test Item Value Reference Range Interpretation [...] NOT APPLICABLE FOR DIALYSIS PATIENTS. Specimen markedly zrvsbkwVJSUZWNSVY3544-34-34 05:23:00* Test Item Value Reference Range Interpretation Comments PHOSPHORUS (BEAKER) (test code = 604) 1.6 mg/dL 2.3-4.7 L PROTHROMBIN TIME/[id number] 04:53:00* Test Item Value Reference Range Interpretation [...] pat ients with mechanical heart valves.CREATININE, RANDOM [id number] 02:02:00* Test Item Value Reference Range Interpretation Comments CREATININE URINE (BEAKER) (test code = 375) 44.3 mg/dL Reference Range: No NormalsSODIUM, RANDOM [id number] 02:02:00* Test Item Value Reference Range Interpretation Comments SODIUM URINE (BEAKER) (test code = 243) 93 meq/L Reference Range: No NormalsUREA NITROGEN, RANDOM [id number] 02:02:00* Test Item Value Reference Range Interpretation Comments UREA NITROGEN URINE (BEAKER) (test code = 538) 120 mg/dL Reference Range: No NormalsCBC W/PLT COUNT & AUTO [id number] 20:17:00* Test Item Value Reference Range Interpretation [...] Slide comments: CBC W/PLT COUNT & AUTO [id number] 13:37:00* Test Item Value Reference Range Interpretation [...] Slide comments: CBC W/PLT COUNT & AUTO [id number] 10:50:00* Test Item Value Reference Range Interpretation [...] comment: User comments: Slide comments: LACTIC ACID, [id number] 07:43:00* Test Item Value Reference Range Interpretation Comments LACTATE BLOOD VENOUS (2) (BEAKER) (test code = 2872) 0.9 mmol/L 0 .5-2.2 Specimen slightly hemolyzed Specimen markedly ictericHEPATIC FUNCTION [id number] 06:45:00* Test Item Value Reference Range Interpretation [...] 19 U/L 6-55 Specimen markedly ictericBASIC METABOLIC [id number] 06:44:00* Test Item Value Reference Range Interpretation [...] APPLICABLE FOR DIALYSIS PATIENTS. Specimen markedly ictericPROTHROMBIN TIME/[id number] 05:44:00* Test Item Value Reference Range Interpretation [...] mechanical heart valves.CBC W/PLT COUNT & AUTO [id number] 21:39:00* Test Item Value Reference Range Interpretation [...] LYMPHOCYTES - ABS (CELLAVISION)(BEAKER) (test code = 1958) 0.18 K/uL 0.00-0.00 H TOTAL COUNTED (BEAKER) (test code = 1351) 100 WBC MORPHOLOGY (BEAKER) (test code = 487) Normal GIANT PLATELETS (BEAKER) (test code = 313) Present ANISOCYTOSIS (BEAKER) (test code = 961) 1+ few ARTIFACT (CELLAVISION)(BEAKER) (test code = 3432) Present PLATELET CONCENTRATION (CELLAVISION)(BEAKER) (test code = 3438) Cheryl quate Received comment: User comments: Slide comments: URINALYSIS W/ REFLEX URINE [id number] 18:43:00* Test Item Value Reference Range Interpretation [...] SOURCE(BEAKER) (test code = 2795) BASIC METABOLIC [id number] 18:23:00* Test Item Value Reference Range Interpretation [...] FOR DIALYSIS PATIENTS. Specimen markedly ictericU/S, ABDOMINAL, [id number] 17:43:00With doppler Reason for exam:->elevated liver enzymes, [...] MDReport Verified Date/Time: 10/17/2018 17:43:28 Reading Location: [facility] C0[facility] Consult Reading Room U/S, DUPLEX, [id number] 17:43:00With doppler Reason for exam:->elevated liver enzymes, [...] n.5. Pancreas obscured from view. Signed: Andrew Sloaneport Verified Date /Time: 10/17/2018 17:43:28 Reading Location: [facility] C013W Consult Reading Room [id number] 17:35:00* Test Item Value Reference Range Interpretation Comments MAGNESIUM (BEAKER) (test code = 627) 2.3 mg/dL 1.6-2.6 CREATINE KINASE (CK)2018-10-17 16:29:00* Test Item Value Reference Range Interpretation Comments CREATINE KINASE TOTAL (BEAKER) (test code = 380) 29 U/L 29-20 0 OLKUYBKJVQIXV4612-15-11 16:11:00* Test Item Value Reference Range Interpretation Comments PROCALCITONIN (BEAKER) (test code = 3036) 0.71 ng/mL <0.05 H SEPSIS RISK (ng/mL)Low: 0.05-0.50Intermediate: 0.51-2.00High: > =2.01LACTIC ACID, [id number] 15:42:00* Test Item Value Reference Range Interpretation Comments LACTATE BLOOD VENOUS (2) (BEAKER) (test code = 2872) 1.2 mmol/L 0 .5-2.2 Specimen slightly hemolyzed Specimen markedly ictericCBC W/PLT COUNT & AUTO NYPKNSJFUCJO6295-14-13 15:29:00 * Test Item Value Reference Range [...] = 413) 0 /100 WBC 0 -0 [id number] 15:22:00* Test Item Value Reference Range Interpretation Comments ETHANOL (BEAKER) (test code = 400) < mg/dL <=10 CBC W/PLT COUNT & AUTO [id number] 14:47:00* Test Item Value Reference Range Interpretation [...] 21 U/L 6-55 Specimen markedly ictericBASIC METABOLIC [id number] 08:16:00* Test Item Value Reference Range Interpretation [...] PATIENTS. Specimen markedly ictericURINALYSIS W/ REFLEX URINE [id number] 03:31:00* Test Item Value Reference Range Interpretation [...] = 1521) Occasional SOURCE(BEAKER) (test code = 3420) Bilirubin Crystals seenBILIRUBIN, [id number] 00:59:00* Test Item Value Reference Range Interpretation Comments BILIRUBIN DIRECT (BEAKER) (test code = 706) 24.2 mg/dL 0.1-0.5 H Specimen slightly hemolyzed COMPREHENSIVE METABOLIC [id number] 00:58:00* Test Item Value Reference Range Interpretation [...] NOT APPLICABLE FOR DIALYSIS PATIENTS. Specimen markedly aiqfrpbWPRTPUVDT6513-35-85 00:13:00* Test Item Value Reference Range Interpretation Comments MAGNESIUM (BEAKER) (test code = 627) 1.5 mg/dL 1.6-2.6 L Specimen slightly hemolyzed PROTHROMBIN TIME/[id number] 23:47:00* Test Item Value Reference Range Interpretation [...] mechanical heart valves.CBC W/PLT COUNT & AUTO [id number] 23:43:00* Test Item Value Reference Range Interpretation [...] 0-1 H RAD, CHEST, 1 VIEW, NON COFI2826-01-11 22:36:00Reason for exam:->SOBShould this be performed at [...] MDReport Verified Date/Time: 10/16/2018 22:36:02 Lactic Acid Iimej2238-98-63 20:02:00* Test Item Value Reference Range Interpretation Comments Lactic Acid Level (test code = Lactic Acid Level) 18.4 4.5- 19.8 [facility] 19[facility]23:00 [place] [address] Patient Name: INDRA GALVAN JR MR #: [id number] : 1980 Age/Sex: 37/M Req #: [id number] Adm Physician: Ordered by: MARYLU DUQUE MD Report #: [id number] Location: ER Room/Bed: Procedure: NM/HEPTOBILIARY Exam Date: [...] COPY TO: MARYLU DUQUE MD CT ABDOMEN/PELVIS [id number] 17:40:00 [place] [address] Patient Name: INDRA GALVAN JR MR #: [id number] : 1980 Age/Sex: 37/M Req #: [id number] Adm Physician: Ordered by: MARYLU DUQUE MD Report #: [id number] Location: ER Room/Bed: Procedure: CT/CT ABDOMEN/PELVIS W Exam Date: 10/16/18 Laura beckwith Time: 1727 REPORT STATUS: [place] d CT [...] 10/16/181749 COPY TO: MARYLU DUQUE MD Prothrombin [id number] 17:34:00* Test Item Value Reference Range Interpretation Comments Prothrombin Time (test code = 5902-2) 18.5 11.9-14.5 [facility]Pro[facility] International Ratio 2018-10-16 17:34:00* Test Item Value Reference Range Interpretation Comments Prothromb Time International Ratio (test code = 6301-6) 1.48 Oral Anticoagulant Therapy INR Values:1. Low Intensity Therapy 1.5 - 2.02 . Moderate Intensity Therapy 2.0 - 3.03. High Intensity Therapy(1) 2.5 - 3. 54. High Intensity Therapy(2) 3.0 - 4.05. Panic Value INR > 5.0 [facility] HospitalAcetaminophen Qzgwx4868-27-09 17:30:00* Test Item Value Reference Range Interpretation Comments Acetaminophen Level (test code = 15430-1) < 3 10-30 L [facility] HospitalUrine [id number] 16:09:00* Test Item Value Reference Range Interpretation Comments Urine WBC (test code = 5821-4) 0-5 0-5 [facility] [id number] 16:09:00* Test Item Value Reference Range Interpretation Comments Urine RBC (test code = 76028-1) 6-10 0-5 H [facility] Caezlfwf4597-93-01 16:09:00* Test Item Value Reference Range Interpretation Comments Urine Bacteria (test code = 45135-2) MANY NONE H [facility] HospitalU[facility] Epithelial Zwfem2622-63-76 16:09:00 * Test Item Value Reference Range Interpretation Comments Urine Epithelial Cells (test code = 96570-9) FEW NONE [facility] HospitalU[facility] Amorphous Gjlnomcx9024-98-61 16:09:00* Test Item Value Reference Range Interpretation Comments Urine Amorphous Sediment (test code = 8246-1) MODERATE FEW H [facility] HospitalU[facility] Fine Granular Gjysg7620-32-66 16:09:00* Test Item Value Reference Range Interpretation Comments Urine Fine Granular Casts (test code = 74284-9) 1-5 >0 H [facility] HospitalU[facility] Icmqh0244-75-38 15:58:00* Test Item Value Reference Range Interpretation Comments Urine Color (test code = 5778-6) BROWN YELLOW [facility] Cinvhcr6981-67-16 15:58:00* Test Item Value Reference Range Interpretation Comments Urine Clarity (test code = 31923-4) CLOUDY CLEAR [facility] Specific Bdiggoy2981-46-02 15:58:00 * Test Item Value Reference Range Interpretation Comments Urine Specific [place] (test code = 5811-5) 1.010 1.010-1.02 5 [facility] [id number] 15:58:00* Test Item Value Reference Range Interpretation Comments Urine pH (test code = 67124-0) 7 5-7 [facility] Leukocyte Wirjvndj1887-20-83 15:58:00* Test Item Value Reference Range Interpretation Comments Urine Leukocyte Esterase (test code = 88524-3) SMALL NEGATIV E [facility] HospitalU[facility] Bdddnhk4002-27-31 15:58:00* Test Item Value Reference Range Interpretation Comments Urine Nitrite (test code = 41704-3) POSITIVE NEGATIVE [facility] Ecwgdtv2848-34-25 15:58:00* Test Item Value Reference Range Interpretation Comments Urine Protein (test code = 11721-2) 2+ NEGATIVE [facility] Glucose (UA)2018-10-16 15:58:00* Test Item Value Reference Range Interpretation Comments Urine Glucose (UA) (test code = 26904-7) 2+ NEGATIVE H [facility] HospitalU[facility] Wynuhpq2096-62-97 15:58:00* Test Item Value Reference Range Interpretation Comments Urine Ketones (test code = 38319-5) TRACE NEGATIVE [facility] Iyggzegznrst1876-28-39 15:58:00* Test Item Value Reference Range Interpretation Comments Urine Urobilinogen (test code = 92727-0) 1 0.2-1 [facility] Onpziitra4460-05-33 15:58:00* Test Item Value Reference Range Interpretation Comments Urine Bilirubin (test code = 1977-8) LARGE NEGATIVE [facility] Izqbv5669-64-41 15:58:00* Test Item Value Reference Range Interpretation Comments Urine Blood (test code = 48085-4) 3+ NEGATIVE [facility] HospitalB-Type Natriuretic Bhbjvht4780-51-39 15:31:00* Test Item Value Reference Range Interpretation Comments B-Type Natriuretic Peptide (test code = 44081-8) 403.4 0-100 H [facility] HospitalCreatine Kinase [id number] 15:20:00* Test Item Value Reference Range Interpretation Comments Creatine Kinase MB (test code = 70411-4) 0.40 0-5.0 [facility] HospitalTroponin [id number] 15:20:00* Test Item Value Reference Range Interpretation Comments Troponin I (test code = JZQ1306) 0.012 0-0.300 [facility] Qtgmy4966-64-71 15:19:00* Test Item Value Reference Range Interpretation Comments Sodium Level (test code = 2951-2) 134 136-145 L [facility] HospitalPotassium Yuhhu8801-55-50 15:19:00* Test Item Value Reference Range Interpretation Comments Potassium Level (test code = 2823-3) 2.7 3.5-5.1 LL Results repeated and called to DR. KELSEY at 1518 on 10/16/18 by VICKY WHITTAKER. Read back and verified.[facility] HospitalChloride Level 2018-10-16 15:19:00* Test Item Value Reference Range Interpretation Comments Chloride Level (test code = 2075-0) 93 98-107 L [facility] HospitalCarbon Dioxide Qdqsk9130-04-92 15:19:00* Test Item Value Reference Range Interpretation Comments Carbon Dioxide Level (test code = 2028-9) 28 22-29 [facility] HospitalAnion Onr8072-43-13 15:19:00* Test Item Value Reference Range Interpretation Comments Anion Gap (test code = 19283-0) 15.7 8-16 [facility] HospitalBlood Urea Bmqqeruo9758-37-63 15:19:00* Test Item Value Reference Range Interpretation Comments Blood Urea Nitrogen (test code = 3094-0) 9 7-26 [facility] HospitalCreatinine2019-08-21 15:19:00* Test Item Value Reference Range Interpretation Comments Creatinine (test code = 2160-0) 1.47 0.72-1.25 H [facility] HospitalBUN/Creatinine Fmhlw8089-31-87 15:19:00* Test Item Value Reference Range Interpretation Comments BUN/Creatinine Ratio (test code = 3097-3) 6 6-25 [facility] HospitalEstimat Glomerular Filtration Rate 2018-10-16 15:19:00* Test Item Value Reference Range Interpretation Comments Estimat Glomerular Filtration Rate (test code = 704252038) 53 >60 L Ranges were taken from the National Kidney Disease Education Program and the [facility] literature.Reference ranges:60 or greater: Afgbxi67-16 ( for 3 consecutive months): Chronic kidney disease 15 or less: Kidney failureStarr County Memorial HospitalGlucose Jsbqk5546-91-42 15:19:00* Test Item Value Reference Range Interpretation Comments Glucose Level (test code = AXN0089) 144 74-118 H [facility] HospitalCalcium Feayb8223-02-88 15:19:00* Test Item Value Reference Range Interpretation Comments Calcium Level (test code = 08044-5) 8.5 8.4-10.2 [facility] HospitalTotal Poiomdgdv0627-01-66 15:19:00* Test Item Value Reference Range Interpretation Comments Total Bilirubin (test code = 1975-2) > 25.0 0.2-1.2 H [facility] HospitalAspartate Amino Transf (AST/SGOT) 2018-10-16 15:19:00* Test Item Value Reference Range Interpretation Comments Aspartate Amino Transf (AST/SGOT) (test code = Aspartate Amino Transf (AST/SGOT)) 98 5-34 H [facility] HospitalAlanine Aminotransferase (ALT/SGPT) 2018-10-16 15:19:00* Test Item Value Reference Range Interpretation Comments Alanine Aminotransferase (ALT/SGPT) (test code = 1742-6) 22 0-55 [facility] HospitalTotal Lyfgobc2539-37-72 15:19:00* Test Item Value Reference Range Interpretation Comments Total Protein (test code = 2885-2) 6.6 6.5-8.1 [facility] HospitalAlbumin2019-08-21 15:19:00* Test Item Value Reference Range Interpretation Comments Albumin (test code = 1751-7) 2.5 3.5-5.0 L [facility] HospitalGlobulin2019-08-21 15:19:00* Test Item Value Reference Range Interpretation Comments Globulin (test code = 41612-7) 4.1 2.3-3.5 H [facility] HospitalAlbumin/Globulin Sywta2290-97-38 15:19:00 * Test Item Value Reference Range Interpretation Comments Albumin/Globulin Ratio (test code = 1759-0) 0.6 0.8-2.0 L [facility] HospitalAlkaline Yichdwfqrpm7745-43-36 15:19:00* Test Item Value Reference Range Interpretation Comments Alkaline Phosphatase (test code = 6768-6) 159 40-150 H [facility] HospitalCreatine Ediifx8529-46-10 15:19:00* Test Item Value Reference Range Interpretation Comments Creatine Kinase (test code = 2157-6) 39 30-200 [facility] HospitalWhite Blood Jbkzq5558-36-89 14:59:00* Test Item Value Reference Range Interpretation Comments White Blood Count (test code = 6690-2) 18.65 4.8-10.8 H [facility] HospitalRed Blood Dlxya6520-88-03 14:59:00* Test Item Value Reference Range Interpretation Comments Red Blood Count (test code = 789-8) 2.11 4.3-5.7 L [facility] HospitalHemoglobin2019-08-21 14:59:00* Test Item Value Reference Range Interpretation Comments Hemoglobin (test code = 12409-9) 7.7 14.0-18.0 L [facility] HospitalHematocrit2019-08-21 14:59:00* Test Item Value Reference Range Interpretation Comments Hematocrit (test code = 4544-3) 22.2 38.2-49.6 L [facility] HospitalMean Corpuscular Fsxzsm8881-05-84 14:59:00* Test Item Value Reference Range Interpretation Comments Mean Corpuscular Volume (test code = 787-2) 105.2 81-99 H [facility] HospitalMean Corpuscular Czxvumkxnw3136-35-05 14:59:00* Test Item Value Reference Range Interpretation Comments Mean Corpuscular Hemoglobin (test code = 785-6) 36.5 28-32 H [facility] HospitalMean Corpuscular Hemoglobin Concent 2018-10-16 14:59:00* Test Item Value Reference Range Interpretation Comments Mean Corpuscular Hemoglobin Concent (test code = 786-4) 34.7 31-35 [facility] HospitalRed Cell Distribution Wzsln2313-37-75 14:59:00* Test Item Value Reference Range Interpretation Comments Red Cell Distribution Width (test code = 08018-3) 14.0 11.7 -14.4 [facility] HospitalPlatelet Rsyfi2120-83-10 14:59:00* Test Item Value Reference Range Interpretation Comments Platelet Count (test code = 777-3) 184 140-360 [facility] HospitalNeutrophils (%) (Auto)2018-10-16 14:59:00 * Test Item Value Reference Range Interpretation Comments Neutrophils (%) (Auto) (test code = 49556-9) 80.6 38.7-80.0 H [facility] HospitalLymphocytes (%) (Auto)2018-10-16 14:59:00 * Test Item Value Reference Range Interpretation Comments Lymphocytes (%) (Auto) (test code = 736-9) 5.3 18.0-39.1 L [facility] HospitalMonocytes (%) (Auto)2018-10-16 14:59:00* Test Item Value Reference Range Interpretation Comments Monocytes (%) (Auto) (test code = 5905-5) 11.7 4.4-11.3 H [facility] HospitalEosinophils (%) (Auto)2018-10-16 14:59:00 * Test Item Value Reference Range Interpretation Comments Eosinophils (%) (Auto) (test code = 713-8) 0.5 0.0-6.0 [facility] HospitalBasophils (%) (Auto)2018-10-16 14:59:00* Test Item Value Reference Range Interpretation Comments Basophils (%) (Auto) (test code = 706-2) 0.3 0.0-1.0 [facility] HospitalIM GRANULOCYTES %2018-10-16 14:59:00* Test Item Value Reference Range Interpretation Comments IM GRANULOCYTES % (test code = IM GRANULOCYTES %) 1.6 0.0- 1.0 H [facility] HospitalNeutrophils # (Auto)2018-10-16 14:59:00* Test Item Value Reference Range Interpretation Comments Neutrophils # (Auto) (test code = 751-8) 15.0 2.1-6.9 H [facility] HospitalLymphocytes # (Auto)2018-10-16 14:59:00* Test Item Value Reference Range Interpretation Comments Lymphocytes # (Auto) (test code = 42517-2) 1.0 1.0-3.2 [facility] HospitalMonocytes # (Auto)2018-10-16 14:59:00* Test Item Value Reference Range Interpretation Comments Monocytes # (Auto) (test code = 742-7) 2.2 0.2-0.8 H [facility] HospitalEosinophils # (Auto)2018-10-16 14:59:00* Test Item Value Reference Range Interpretation Comments Eosinophils # (Auto) (test code = 711-2) 0.1 0.0-0.4 [facility] HospitalBasophils # (Auto)2018-10-16 14:59:00* Test Item Value Reference Range Interpretation Comments Basophils # (Auto) (test code = 704-7) 0.1 0.0-0.1 [facility] HospitalAbsolute Immature Granulocyte (auto 2018-10-16 14:59:00* Test Item Value Reference Range Interpretation Comments Absolute Immature Granulocyte (auto (doug t code = Absolute Immature Granulocyte (auto) 0.30 0-0.1 H [facility] HospitalAFB CULTURE + [id number] 07:33:00* Test Item Value Reference Range Interpretation Comments CULTURE (BEAKER) (test code = 1095) No acid-fast bacilli isolate d in 42 days AFB SMEAR (BEAKER) (test code = 994) No acid fast bacilli seen FUNGUS CULTURE + [id number] 17:11:00* Test Item Value Reference Range Interpretation Comments CULTURE (BEAKER) (test code = 1095) No fungus isolated in 28 days FUNGUS SMEAR (BEAKER) (test code = 1406) No fungi seen CREATINE KINASE (CK)2018-07-09 05:38:00* Test Item Value Reference Range Interpretation Comments CREATINE KINASE TOTAL (BEAKER) (test code = 380) 17 U/L 29-20 0 L UYUPWJIBX9372-56-00 05:37:00* Test Item Value Reference Range Interpretation Comments MAGNESIUM (BEAKER) (test code = 627) 1.6 mg/dL 1.6-2.6 BASIC METABOLIC [id number] 05:37:00* Test Item Value Reference Range Interpretation [...] FOR DIALYSIS PATIENTS. Specimen moderately ictericHEPATIC FUNCTION [id number] 05:37:00* Test Item Value Reference Range Interpretation [...] 347) 83 U/L 6-55 H Specimen moderately gbnesqkKNYW5596-65-77 05:32:00* Test Item Value Reference Range Interpretation Comments PARTIAL THROMBOPLASTIN TIME (BEAKER) (test code = 760) 45.3 seconds 22.5-36.0 H PROTHROMBIN TIME/[id number] 05:31:00* Test Item Value Reference Range Interpretation [...] mechanical heart valves.CBC W/PLT COUNT & AUTO EBJVQWBTFCPK0170-70-13 05:08:00* Test Item Value Reference Range Interpretation [...] code = 2801) 1 % 0-1 POCT-GLUCOSE SWFDR9210-34-73 22:05:00* Test Item Value Reference Range Interpretation Comments POC-GLUCOSE METER (BEAKER) (test code = 1538) 168 mg/dL 70-110 H TESTED AT [facility] [address] [facility] [address] [place], ESOPH, SWALLOW FUNCTION, WITH CINE OR [id number] 10:04:00Reason for exam:->evaluate swallow safety after prolonged [...] time: 1.25 minutes. One image. Signed: Andrew Sloaneport Verified Date/Time: 07/08/2018 10:04:01 Reading Location: [place] [address]X Ortho Consult Reading Room [id number] 06:21:00* Test Item Value Reference Range Interpretation Comments MAGNESIUM (BEAKER) (test code = 627) 1.7 mg/dL 1.6-2.6 BASIC METABOLIC NLQXY7505-32-94 06:21:00* Test Item Value Reference Range Interpretation [...] FOR DIALYSIS PATIENTS. Specimen moderately ictericHEPATIC FUNCTION [id number] 06:21:00* Test Item Value Reference Range Interpretation [...] Specimen moderately ictericCBC W/PLT COUNT & AUTO ZCQWDINBTCDJ8393-29-63 06:09:00* Test Item Value Reference Range Interpretation [...] (test code = 2801) 1 % 0-1 [id number] 05:49:00* Test Item Value Reference Range Interpretation Comments PARTIAL THROMBOPLASTIN TIME (BEAKER) (test code = 760) 45.0 seconds 22.5-36.0 H PROTHROMBIN TIME/[id number] 05:48:00* Test Item Value Reference Range Interpretation Comments PROTIME (BEAKER) (test code = 759) 15.7 seconds 11.7-14.7 H INR (BEAKER) (test code = 370) 1.3 <=5.9 RECOMMENDED COUMADIN/WARFARIN INR THERAPY RANGESSTANDARD DOSE: 2.0 - 3.0 Inclu herb: PROPHYLAXIS for venous thrombosis, systemic embolization; TREATMENT for giulia ous thrombosis and/or pulmonary embolus.HIGH RISK: Target INR is 2.5-3.5 for pat ients with mechanical heart valves.POCT-GLUCOSE [id number] 05:45:00* Test Item Value Reference Range Interpretation Comments POC-GLUCOSE METER (BEAKER) (test code = 1538) 104 mg/dL 70-110 TESTED AT [facility] [address] [facility] [address] POCT-GLUCOSE [id number] 00:02:00* Test Item Value Reference Range Interpretation Comments POC-GLUCOSE METER (BEAKER) (test code = 1538) 102 mg/dL 70-110 TESTED AT [place] [id number] [facility] [address] POCT-GLUCOSE [id number] 18:01:00* Test Item Value Reference Range Interpretation Comments POC-GLUCOSE METER (BEAKER) (test code = 1538) 91 mg/dL 70-110 TESTED AT [address] [address] POCT-GLUCOSE [id number] 12:34:00* Test Item Value Reference Range Interpretation Comments POC-GLUCOSE METER (BEAKER) (test code = 1538) 94 mg/dL 70-110 TESTED AT [address] [address] POCT-GLUCOSE [id number] 06:22:00* Test Item Value Reference Range Interpretation Comments POC-GLUCOSE METER (BEAKER) (test code = 1538) 111 mg/dL 70-110 H TESTED AT [address] [address] [id number] 06:14:00* Test Item Value Reference Range Interpretation Comments MAGNESIUM (BEAKER) (test code = 627) 1.8 mg/dL 1.6-2.6 BASIC METABOLIC [id number] 06:14:00* Test Item Value Reference Range Interpretation [...] FOR DIALYSIS PATIENTS. Specimen moderately ictericHEPATIC FUNCTION [id number] 06:14:00* Test Item Value Reference Range Interpretation [...] 347) 93 U/L 6-55 H Specimen moderately qjoasdkNJTE3317-26-58 05:42:00* Test Item Value Reference Range Interpretation Comments PARTIAL THROMBOPLASTIN TIME (BEAKER) (test code = 760) 43.0 seconds 22.5-36.0 H PROTHROMBIN TIME/[id number] 05:41:00* Test Item Value Reference Range Interpretation [...] mechanical heart valves.CBC W/PLT COUNT & AUTO TGNMYFNKZPPW6097-70-54 05:30:00* Test Item Value Reference Range Interpretation [...] code = 2801) 1 % 0-1 POCT-GLUCOSE [id number] 00:27:00* Test Item Value Reference Range Interpretation Comments POC-GLUCOSE METER (BEAKER) (test code = 1538) 110 mg/dL 70-110 TESTED AT [facility] [address] [facility] [address] POCT-GLUCOSE [id number] 17:58:00* Test Item Value Reference Range Interpretation Comments POC-GLUCOSE METER (BEAKER) (test code = 1538) 165 mg/dL 70-110 H TESTED AT [facility] [address] [facility] [address] POCT-GLUCOSE [id number] 12:01:00* Test Item Value Reference Range Interpretation Comments POC-GLUCOSE METER (BEAKER) (test code = 1538) 138 mg/dL 70-110 H TESTED AT [facility] [address] [facility] [address] [id number] 07:32:00* Test Item Value Reference Range Interpretation Comments PARTIAL THROMBOPLASTIN TIME (BEAKER) (test code = 760) 43.2 seconds 22.5-36.0 H PROTHROMBIN TIME/[id number] 07:31:00* Test Item Value Reference Range Interpretation Comments PROTIME (BEAKER) (test code = 759) 15.1 seconds 11.7-14.7 H INR (BEAKER) (test code = 370) 1.3 <=5.9 RECOMMENDED COUMADIN/WARFARIN INR THERAPY RANGESSTANDARD DOSE: 2.0 - 3.0 Inclu herb: PROPHYLAXIS for venous thrombosis, systemic embolization; TREATMENT for giulia ous thrombosis and/or pulmonary embolus.HIGH RISK: Target INR is 2.5-3.5 for pat ients with mechanical heart valves.[id number] 06:50:00* Test Item Value Reference Range Interpretation Comments MAGNESIUM (BEAKER) (test code = 627) 1.5 mg/dL 1.6-2.6 L BASIC METABOLIC [id number] 06:50:00* Test Item Value Reference Range Interpretation [...] FOR DIALYSIS PATIENTS. Specimen moderately ictericHEPATIC FUNCTION [id number] 06:50:00* Test Item Value Reference Range Interpretation [...] Specimen moderately ictericCBC W/PLT COUNT & AUTO [id number] 06:49:00* Test Item Value Reference Range Interpretation [...] code = 2801) 1 % 0-1 POCT-GLUCOSE [id number] 06:06:00* Test Item Value Reference Range Interpretation Comments POC-GLUCOSE METER (BEAKER) (test code = 1538) 165 mg/dL 70-110 H TESTED AT [address] [address] POCT-GLUCOSE [id number] 00:15:00* Test Item Value Reference Range Interpretation Comments POC-GLUCOSE METER (BEAKER) (test code = 1538) 132 mg/dL 70-110 H TESTED AT [address] [address] POCT-GLUCOSE [id number] 21:55:00* Test Item Value Reference Range Interpretation Comments POC-GLUCOSE METER (BEAKER) (test code = 1538) 161 mg/dL 70-110 H TESTED AT [address] [address] POCT-GLUCOSE [id number] 17:57:00* Test Item Value Reference Range Interpretation Comments POC-GLUCOSE METER ([facility]) (test code = 1538) 136 mg/dL 70-110 H TESTED AT [facility] [address] [facility] [address] TISSUE [id number] 16:12:00Surgical Pathology Report Case: [id number] Authorizing Provider: Neptali Kolb, Collected: 07/04/2018 0827 Ordering Location: [address] Received: 07/04/2018 1313 Pathologist: Be Arenas MD Specimen: Cecum, R/O lymphoma PART A CECAL BIOPSY:GRANULATION TISSUE.NO EVIDENCE OF LYMPHOMA OR CARCINOMA..IMMUNOSTAINS FOR CMV, HSV1, HSV2 ARE NEGATIVE.SPECIAL STAINS FOR FUNGAL ORGANISMS (GMS, PAS) ARE NEGATIVE.SEE DIAGNOSTIC COMMENT. Signing Pathologist Direct Phone Line: [phone] signed by Be Arenas MD on 07/05/2018 [...] the sampled material may not be fully manufacturers service representative. The prominent B cell population identified in the prior study ([id number]) is not identified in the current study. If there is a strong clinical concern for a malignant process, additional tissue based studies are recommended as the sampled material may not be fully manufacturers service representative. 41707, 19681, 62021N3, 54838W6Zpian ulcer lower GI bleeding, rule out lymphomaCecum Received in formalin labeled as "cecum, rule out lymphoma" are multiple more than five red-guajardo tissue fragments ranging from 0.1 to 0.4 cm. The specimen is submitted in toto in one cassette. [place]/plperformedThe interpretation of this case included the use of immunohistochemistry or special stains.BLOCK A1- GMS, PAS, HSV1, HSV2, CD20, PAX5, CD3, CO0Sllkwlb Slides Exa mined: In-house known positive controls were evaluated along with the test tiss ue. These control slides run alongside of the patients sample show appropriate staining. Internal positive and negative controls when available are evaluated I mmunohistochemistry technical testing was performed at [facility], Pathology Laboratory where it was [...] perfo rm high complexity clinical laboratory testing.POCT-GLUCOSE [id number] 12:01:00* Test Item Value Reference Range Interpretation Comments POC-GLUCOSE METER (BEAKER) (test code = 1538) 157 mg/dL 70-110 H TESTED AT [facility] [address] [facility] [address] CBC W/PLT COUNT & AUTO [id number] 07:05:00* Test Item Value Reference Range Interpretation [...] Received comment: User comments: Slide comments: POCT-GLUCOSE [id number] 06:09:00* Test Item Value Reference Range Interpretation Comments POC-GLUCOSE METER (BEAKER) (test code = 1538) 148 mg/dL 70-110 H TESTED AT [facility] [address] [facility] [address] [id number] 05:03:00* Test Item Value Reference Range Interpretation Comments MAGNESIUM (BEAKER) (test code = 627) 1.7 mg/dL 1.6-2.6 BASIC METABOLIC [id number] 05:03:00* Test Item Value Reference Range Interpretation [...] FOR DIALYSIS PATIENTS. Specimen moderately ictericHEPATIC FUNCTION [id number] 05:03:00* Test Item Value Reference Range Interpretation [...] 347) 112 U/L 6-55 H Specimen moderately [id number] 04:56:00* Test Item Value Reference Range Interpretation Comments PARTIAL THROMBOPLASTIN TIME (GAURAVAKER) (test code = 760) 49.3 seconds 22.5-36.0 H PROTHROMBIN TIME/[id number] 04:55:00* Test Item Value Reference Range Interpretation Comments PROTIME (BEAKER) (test code = 759) 16.0 seconds 11.7-14.7 H INR (BEAKER) (test code = 370) 1.4 <=5.9 RECOMMENDED COUMADIN/WARFARIN INR THERAPY RANGESSTANDARD DOSE: 2.0 - 3.0 Inclu herb: PROPHYLAXIS for venous thrombosis, systemic embolization; TREATMENT for giulia ous thrombosis and/or pulmonary embolus.HIGH RISK: Target INR is 2.5-3.5 for pat ients with mechanical heart valves.POCT-GLUCOSE [id number] 00:01:00* Test Item Value Reference Range Interpretation Comments POC-GLUCOSE METER ([facility]) (test code = 1538) 144 mg/dL 70-110 H TESTED AT [address] [address] POCT-GLUCOSE [id number] 18:04:00* Test Item Value Reference Range Interpretation Comments POC-GLUCOSE METER ([facility]) (test code = 1538) 113 mg/dL 70-110 H TESTED AT [address] [address] POCT-GLUCOSE [id number] 11:48:00* Test Item Value Reference Range Interpretation Comments POC-GLUCOSE METER ([facility]) (test code = 1538) 92 mg/dL 70-110 TESTED AT [address] [address] CBC W/PLT COUNT & AUTO [id number] 10:15:00* Test Item Value Reference Range Interpretation Comments WHITE BLOOD CELL COUNT ([facility]) (test code = 775) 15.3 K/ L 3.5- 10.5 H RED BLOOD CELL COUNT ([facility]) (test code = 761) 2.66 M/ L 4.63-6 .08 L HEMOGLOBIN ([facility] (test code = 410) 8.4 GM/DL 13.7-17.5 [...] Received comment: User comments: Slide comments: POCT-GLUCOSE [id number] 06:36:00* Test Item Value Reference Range Interpretation Comments POC-GLUCOSE METER (BEAKER) (test code = 1538) 107 mg/dL 70-110 TESTED AT [facility] [address] [facility] [address] [id number] 05:42:00* Test Item Value Reference Range Interpretation Comments MAGNESIUM (BEAKER) (test code = 627) 1.9 mg/dL 1.6-2.6 Specimen slightly hemolyzed BASIC METABOLIC [id number] 05:42:00* Test Item Value Reference Range Interpretation [...] FOR DIALYSIS PATIENTS. Specimen moderately ictericHEPATIC FUNCTION [id number] 05:42:00* Test Item Value Reference Range Interpretation [...] 6-55 H Specimen slightly hemolyzed Specimen moderately [id number] 05:35:00* Test Item Value Reference Range Interpretation Comments PARTIAL THROMBOPLASTIN TIME (BEAKER) (test code = 760) 40.6 seconds 22.5-36.0 H PROTHROMBIN TIME/[id number] 05:34:00* Test Item Value Reference Range Interpretation Comments PROTIME (BEAKER) (test code = 759) 16.0 seconds 11.7-14.7 H INR (BEAKER) (test code = 370) 1.3 <=5.9 RECOMMENDED COUMADIN/WARFARIN INR THERAPY RANGESSTANDARD DOSE: 2.0 - 3.0 Inclu herb: PROPHYLAXIS for venous thrombosis, systemic embolization; TREATMENT for giulia ous thrombosis and/or pulmonary embolus.HIGH RISK: Target INR is 2.5-3.5 for pat ients with mechanical heart valves.POCT-GLUCOSE [id number] 00:32:00* Test Item Value Reference Range Interpretation Comments POC-GLUCOSE METER (BEAKER) (test code = 1538) 106 mg/dL 70-110 TESTED AT [facility] [address] [facility] [address] RAD, CHEST, 1 VIEW, NON [id number] 18:48:00Reason for exam:->SOBShould this be performed at [...] change. Signed: Keith Garcia MDReport Verified Date/Time: 07/03/2018 18:48:11 Reading Location: [facility] C013W Consult Reading Room -GLUCOSE [id number] 17:36:00* Test Item Value Reference Range Interpretation Comments POC-GLUCOSE METER (BEAKER) (test code = 1538) 130 mg/dL 70-110 H TESTED AT [facility] [address] [facility] [address] HEMOGLOBIN AND [id number] 14:44:00* Test Item Value Reference Range Interpretation Comments HEMOGLOBIN (BEAKER) (test code = 410) 8.1 GM/DL 13.7-17.5 L HEMATOCRIT (BEAKER) (test code = 411) 25.8 % 40.1-51.0 L CBC W/PLT COUNT & AUTO [id number] 12:53:00* Test Item Value Reference Range Interpretation [...] MDReport Verified Date/Time: 07/03/2018 07:23:40 Reading Location: [facility] Radiology Reading Room -GLUCOSE [id number] 06:01:00* Test Item Value Reference Range Interpretation Comments POC-GLUCOSE METER (BEAKER) (test code = 1538) 203 mg/dL 70-110 H TESTED AT [facility] [address] [place] [address] [id number] 05:39:00* Test Item Value Reference Range Interpretation Comments MAGNESIUM (BEAKER) (test code = 627) 1.7 mg/dL 1.6-2.6 BASIC METABOLIC [id number] 05:39:00* Test Item Value Reference Range Interpretation [...] FOR DIALYSIS PATIENTS. Specimen moderately ictericHEPATIC FUNCTION [id number] 05:39:00* Test Item Value Reference Range Interpretation [...] 347) 125 U/L 6-55 H Specimen moderately [id number] 05:10:00* Test Item Value Reference Range Interpretation Comments PARTIAL THROMBOPLASTIN TIME (BEAKER) (test code = 760) 41.9 seconds 22.5-36.0 H PROTHROMBIN TIME/[id number] 05:09:00* Test Item Value Reference Range Interpretation [...] pat ients with mechanical heart valves.HEMOGLOBIN AND [id number] 00:58:00 * Test Item Value Reference Range Interpretation Comments HEMOGLOBIN (BEAKER) (test code = 410) 8.3 GM/DL 13.7-17.5 L HEMATOCRIT (BEAKER) (test code = 411) 26.1 % 40.1-51.0 L POCT-GLUCOSE [id number] 23:25:00* Test Item Value Reference Range Interpretation Comments POC-GLUCOSE METER (BEAKER) (test code = 1538) 179 mg/dL 70-110 H TESTED AT [place] [id number] [facility] [address] POCT-GLUCOSE [id number] 18:01:00* Test Item Value Reference Range Interpretation Comments POC-GLUCOSE METER (BEAKER) (test code = 1538) 175 mg/dL 70-110 H TESTED AT [address] [address] HEMOGLOBIN AND [id number] 17:25:00* Test Item Value Reference Range Interpretation Comments HEMOGLOBIN (BEAKER) (test code = 410) 7.9 GM/DL 13.7-17.5 L HEMATOCRIT (BEAKER) (test code = 411) 24.0 % 40.1-51.0 L CBC W/PLT COUNT & AUTO [id number] 13:26:00* Test Item Value Reference Range Interpretation [...] Received comment: User comments: Slide comments: POCT-GLUCOSE [id number] 11:58:00* Test Item Value Reference Range Interpretation Comments POC-GLUCOSE METER (BEAKER) (test code = 1538) 148 mg/dL 70-110 H TESTED AT [facility] [address] [facility] [address] RAD, CHEST, 1 VIEW, NON [id number] 07:41:00Reason for exam:->Pulmonary edema evaluationShould this be performed at the bedside?->YesFINAL REPORT Portable chest. CLINICAL HISTORY: Pulmonary edema evaluation. COMPARISON STUDY: Chest x-ray from yesterday. FINDINGS: The cardiac silhouette is enlarged. The pulmonary parenchyma demonstrate mild interstitial and patchy airspace opacities. The support lines and tubes are unchanged. No pneumothorax is seen. Degenerative changes are noted. IMPRESSION: No significant change. Signed: Andrew Sloan MDRepjane Verified Date/Time: 07/02/2018 07:41:39 Reading Location: [facility] Radiology Reading Room [id number] 07:01:00* Test Item Value Reference Range Interpretation Comments PARTIAL THROMBOPLASTIN TIME (BEAKER) (test code = 760) 46.2 seconds 22.5-36.0 H PROTHROMBIN TIME/[id number] 06:59:00* Test Item Value Reference Range Interpretation [...] pat ients with mechanical heart valves.HEMOGLOBIN AND [id number] 06:48:00 * Test Item Value Reference Range Interpretation Comments HEMOGLOBIN (BEAKER) (test code = 410) 7.9 GM/DL 13.7-17.5 L HEMATOCRIT (BEAKER) (test code = 411) 25.0 % 40.1-51.0 L POCT-GLUCOSE [id number] 06:17:00* Test Item Value Reference Range Interpretation Comments POC-GLUCOSE METER (BEAKER) (test code = 1538) 170 mg/dL 70-110 H TESTED AT [facility] [address] [facility] [address] CREATINE KINASE (CK)2018-07-02 03:50:00* Test Item Value Reference Range Interpretation Comments CREATINE KINASE TOTAL (BEAKER) (test code = 380) 17 U/L 29-20 0 L [id number] 03:44:00* Test Item Value Reference Range Interpretation Comments MAGNESIUM (BEAKER) (test code = 627) 1.9 mg/dL 1.6-2.6 Specimen slightly hemolyzed BASIC METABOLIC [id number] 03:44:00* Test Item Value Reference Range Interpretation [...] FOR DIALYSIS PATIENTS. Specimen moderately ictericHEPATIC FUNCTION [id number] 03:44:00* Test Item Value Reference Range Interpretation [...] Specimen slightly hemolyzed Specimen moderately ictericHEMOGLOBIN AND [id number] 03:08:00* Test Item Value Reference Range Interpretation Comments HEMOGLOBIN (BEAKER) (test code = 410) 7.9 GM/DL 13.7-17.5 L HEMATOCRIT (BEAKER) (test code = 411) 24.8 % 40.1-51.0 L POCT-GLUCOSE [id number] 23:24:00* Test Item Value Reference Range Interpretation Comments POC-GLUCOSE METER (BEAKER) (test code = 1538) 155 mg/dL 70-110 H TESTED AT [facility] [address] [facility] [address] HEMOGLOBIN AND [id number] 18:35:00* Test Item Value Reference Range Interpretation Comments HEMOGLOBIN (BEAKER) (test code = 410) 7.9 GM/DL 13.7-17.5 L HEMATOCRIT (BEAKER) (test code = 411) 24.1 % 40.1-51.0 L POCT-GLUCOSE [id number] 17:49:00* Test Item Value Reference Range Interpretation Comments POC-GLUCOSE METER (BEAKER) (test code = 1538) 148 mg/dL 70-110 H TESTED AT [facility] [address] [facility] [address] POCT-GLUCOSE [id number] 11:44:00* Test Item Value Reference Range Interpretation Comments POC-GLUCOSE METER (BEAKER) (test code = 1538) 151 mg/dL 70-110 H TESTED AT [facility] [address] [facility] [address] HEMOGLOBIN AND [id number] 10:59:00* Test Item Value Reference Range Interpretation Comments HEMOGLOBIN (BEAKER) (test code = 410) 8.0 GM/DL 13.7-17.5 L HEMATOCRIT (BEAKER) (test code = 411) 24.0 % 40.1-51.0 L RAD, CHEST, 1 VIEW, NON [id number] 08:47:00Reason for exam:->Pulmonary edema evaluationShould this be [...] Valenzuela Verified Date/Time: 07/01/2018 08:47:41 Reading Location: [facility] Diagnostic Imaging Reading Room - [place] [address] -GLUCOSE [id number] 06:47:00 * Test Item Value Reference Range Interpretation Comments POC-GLUCOSE METER (BEAKER) (test code = 1538) 153 mg/dL 70-110 H TESTED AT [facility] [address] [facility] [address] [id number] 04:06:00* Test Item Value Reference Range Interpretation Comments MAGNESIUM (BEAKER) (test code = 627) 1.9 mg/dL 1.6-2.6 BASIC METABOLIC [id number] 04:06:00* Test Item Value Reference Range Interpretation [...] FOR DIALYSIS PATIENTS. Specimen moderately ictericHEPATIC FUNCTION [id number] 04:06:00* Test Item Value Reference Range Interpretation [...] 347) 145 U/L 6-55 H Specimen moderately [id number] 03:50:00* Test Item Value Reference Range Interpretation Comments PARTIAL THROMBOPLASTIN TIME (BEAKER) (test code = 760) 46.8 seconds 22.5-36.0 H PROTHROMBIN TIME/[id number] 03:49:00* Test Item Value Reference Range Interpretation [...] mechanical heart valves.CBC W/PLT COUNT & AUTO [id number] 03:32:00* Test Item Value Reference Range Interpretation [...] 2801) 2 % 0-1 H HEMOGLOBIN AND [id number] 03:20:00* Test Item Value Reference Range Interpretation Comments HEMOGLOBIN (BEAKER) (test code = 410) 7.7 GM/DL 13.7-17.5 L HEMATOCRIT (BEAKER) (test code = 411) 24.3 % 40.1-51.0 L POCT-GLUCOSE [id number] 23:51:00* Test Item Value Reference Range Interpretation Comments POC-GLUCOSE METER (BEAKER) (test code = 1538) 146 mg/dL 70-110 H TESTED AT [address] [address] POCT-GLUCOSE [id number] 17:40:00* Test Item Value Reference Range Interpretation Comments POC-GLUCOSE METER (BEAKER) (test code = 1538) 194 mg/dL 70-110 H TESTED AT [address] [address] HEMOGLOBIN AND [id number] 17:33:00* Test Item Value Reference Range Interpretation Comments HEMOGLOBIN (BEAKER) (test code = 410) 7.9 GM/DL 13.7-17.5 L HEMATOCRIT (BEAKER) (test code = 411) 24.6 % 40.1-51.0 L CBC W/PLT COUNT & AUTO [id number] 15:29:00* Test Item Value Reference Range Interpretation [...] Received comment: User comments: Slide comments: POCT-GLUCOSE [id number] 11:51:00* Test Item Value Reference Range Interpretation Comments POC-GLUCOSE METER (BEAKER) (test code = 1538) 191 mg/dL 70-110 H TESTED AT [address] [address] HEMOGLOBIN AND [id number] 09:19:00* Test Item Value Reference Range Interpretation Comments HEMOGLOBIN (BEAKER) (test code = 410) 7.8 GM/DL 13.7-17.5 L HEMATOCRIT (BEAKER) (test code = 411) 24.1 % 40.1-51.0 L RAD, CHEST, 1 VIEW, NON [id number] 08:34:00Reason for exam:->Pulmonary edema evaluationShould this be [...] interval change. Signed: Keith Garcia Verified Date/Time: 06/30/2018 08:34:20 Reading Location: [address] Consult Reading Room ESIUM 2018-06-30 07:03:00* Test Item Value Reference Range Interpretation Comments MAGNESIUM (BEAKER) (test code = 627) 2.1 mg/dL 1.6-2.6 BASIC METABOLIC [id number] 07:03:00* Test Item Value Reference Range Interpretation [...] FOR DIALYSIS PATIENTS. Specimen moderately ictericHEPATIC FUNCTION [id number] 07:03:00* Test Item Value Reference Range Interpretation [...] 162 U/L 6-55 H Specimen moderately ictericPOCT-GLUCOSE [id number] 06:08:00* Test Item Value Reference Range Interpretation Comments POC-GLUCOSE METER (BEAKER) (test code = 1538) 127 mg/dL 70-110 H TESTED AT [address] [address] [id number] 06:06:00* Test Item Value Reference Range Interpretation Comments PARTIAL THROMBOPLASTIN TIME (BEAKER) (test code = 760) 27.4 seconds 22.5-36.0 PROTHROMBIN TIME/[id number] 06:05:00* Test Item Value Reference Range Interpretation [...] pat ients with mechanical heart valves.HEMOGLOBIN AND [id number] 00:04:00 * Test Item Value Reference Range Interpretation Comments HEMOGLOBIN (BEAKER) (test code = 410) 8.3 GM/DL 13.7-17.5 L HEMATOCRIT (BEAKER) (test code = 411) 25.4 % 40.1-51.0 L POCT-GLUCOSE [id number] 00:02:00* Test Item Value Reference Range Interpretation Comments POC-GLUCOSE METER (BEAKER) (test code = 1538) 140 mg/dL 70-110 H TESTED AT [place] [id number] [facility] [address] POCT-GLUCOSE [id number] 17:41:00* Test Item Value Reference Range Interpretation Comments POC-GLUCOSE METER (BEAKER) (test code = 1538) 155 mg/dL 70-110 H TESTED AT [address] [address] HEMOGLOBIN AND [id number] 16:00:00* Test Item Value Reference Range Interpretation Comments HEMOGLOBIN (BEAKER) (test code = 410) 8.2 GM/DL 13.7-17.5 L HEMATOCRIT (BEAKER) (test code = 411) 25.5 % 40.1-51.0 L BLOOD GAS, [id number] 15:50:00* Test Item Value Reference Range Interpretation [...] 30.0 % RAD, CHEST, 1 VIEW, NON [id number] 14:58:00Reason for exam:->Pulmonary edema evaluationShould this be performed at the bedside?->YesFINAL REPORT AP chest HISTORY: Pulmonary edema. COMPARISON: 06/28/2018. IMPRESSION: Tracheostomy tube and feeding tube present. Hypoinflation. Mild interstitial edema, increased from previous. No effusion or pneumothorax. Signed: Eric Andrade MDReport Verified Date/Time: 06/29/2018 14:58:10 Reading Location: [address] Transitional Reading Room W/PLT COUNT & [...] Received comment: User comments: Slide comments: POCT-GLUCOSE [id number] 12:20:00* Test Item Value Reference Range Interpretation Comments POC-GLUCOSE METER (BEAKER) (test code = 1538) 154 mg/dL 70-110 H TESTED AT [facility] [address] [facility] [address] [id number] 06:44:00* Test Item Value Reference Range Interpretation Comments PARTIAL THROMBOPLASTIN TIME (BEAKER) (test code = 760) 40.7 seconds 22.5-36.0 H PROTHROMBIN TIME/[id number] 06:43:00* Test Item Value Reference Range Interpretation Comments PROTIME (BEAKER) (test code = 759) 16.8 seconds 11.7-14.7 H INR (BEAKER) (test code = 370) 1.4 <=5.9 RECOMMENDED COUMADIN/WARFARIN INR THERAPY RANGESSTANDARD DOSE: 2.0 - 3.0 Inclu herb: PROPHYLAXIS for venous thrombosis, systemic embolization; TREATMENT for giulia ous thrombosis and/or pulmonary embolus.HIGH RISK: Target INR is 2.5-3.5 for pat ients with mechanical heart valves.POCT-GLUCOSE [id number] 06:07:00* Test Item Value Reference Range Interpretation Comments POC-GLUCOSE METER (BEAKER) (test code = 1538) 177 mg/dL 70-110 H TESTED AT [place] [id number] [facility] [address] [id number] 04:04:00* Test Item Value Reference Range Interpretation Comments MAGNESIUM (BEAKER) (test code = 627) 2.0 mg/dL 1.6-2.6 Specimen slightly hemolyzed BASIC METABOLIC [id number] 04:04:00* Test Item Value Reference Range Interpretation [...] FOR DIALYSIS PATIENTS. Specimen markedly ictericHEPATIC FUNCTION [id number] 04:04:00* Test Item Value Reference Range Interpretation [...] Specimen slightly hemolyzed Specimen markedly ictericHEMOGLOBIN AND [id number] 01:37:00* Test Item Value Reference Range Interpretation Comments HEMOGLOBIN (BEAKER) (test code = 410) 7.7 GM/DL 13.7-17.5 L HEMATOCRIT (BEAKER) (test code = 411) 23.9 % 40.1-51.0 L POCT-GLUCOSE [id number] 00:12:00* Test Item Value Reference Range Interpretation Comments POC-GLUCOSE METER (BEAKER) (test code = 1538) 158 mg/dL 70-110 H TESTED AT [place] [id number] [facility] [address] SODIUM, RANDOM [id number] 20:36:00* Test Item Value Reference Range Interpretation Comments SODIUM URINE (BEAKER) (test code = 243) < meq/L Reference Range: No NormalsPOCT-GLUCOSE [id number] 20:24:00* Test Item Value Reference Range Interpretation Comments POC-GLUCOSE METER (BEAKER) (test code = 1538) 169 mg/dL 70-110 H TESTED AT [address] [address] HEMOGLOBIN AND [id number] 20:24:00* Test Item Value Reference Range Interpretation Comments HEMOGLOBIN (BEAKER) (test code = 410) 6.9 GM/DL 13.7-17.5 L HEMATOCRIT (BEAKER) (test code = 411) 21.1 % 40.1-51.0 L HEMOGLOBIN AND [id number] 18:35:00* Test Item Value Reference Range Interpretation Comments HEMOGLOBIN (BEAKER) (test code = 410) 6.7 GM/DL 13.7-17.5 L HEMATOCRIT (BEAKER) (test code = 411) 20.7 % 40.1-51.0 L YARI ANTIGEN WITH REFLEX TO [id number] 18:29:00* Test Item Value Reference Range Interpretation Comments YARI ANTIGEN (BEAKER) (test code = 1782) Positive YARI ANTIGEN [id number] 18:29:00* Test Item Value Reference Range Interpretation Comments YARI ANTIGEN TITER (BEAKER) (test code = 737) :2 POCT-GLUCOSE [id number] 17:43:00* Test Item Value Reference Range Interpretation Comments POC-GLUCOSE METER (BEAKER) (test code = 1538) 108 mg/dL 70-110 TESTED AT [place] [id number] [facility] [address] POCT-GLUCOSE [id number] 12:27:00* Test Item Value Reference Range Interpretation Comments POC-GLUCOSE METER (BEAKER) (test code = 1538) 152 mg/dL 70-110 H TESTED AT [address] [address] CBC W/PLT COUNT & AUTO [id number] 12:16:00* Test Item Value Reference Range Interpretation [...] 40.1-51.0 L RAD, CHEST, 1 VIEW, NON [id number] 09:28:00Reason for exam:->Pulmonary edema evaluationShould this be [...] Sloan Verified Date/Time: 06/28/2018 09:28:59 Reading Location: [facility] Radiology Reading Room - GLUCOSE [id number] 06:13:00* Test Item Value Reference Range Interpretation Comments POC-GLUCOSE METER (BEAKER) (test code = 1538) 123 mg/dL 70-110 H TESTED AT [facility] [address] [facility] [address] BASIC METABOLIC [id number] 05:57:00* Test Item Value Reference Range Interpretation [...] NOT APPLICABLE FOR DIALYSIS PATIENTS. Specimen markedly [id number] 05:56:00* Test Item Value Reference Range Interpretation Comments MAGNESIUM (BEAKER) (test code = 627) 2.3 mg/dL 1.6-2.6 HEPATIC FUNCTION [id number] 05:56:00* Test Item Value Reference Range Interpretation [...] 347) 180 U/L 6-55 H Specimen markedly [id number] 05:43:00* Test Item Value Reference Range Interpretation Comments PARTIAL THROMBOPLASTIN TIME (BEAKER) (test code = 760) 45.3 seconds 22.5-36.0 H PROTHROMBIN TIME/[id number] 05:42:00* Test Item Value Reference Range Interpretation Comments PROTIME (BEAKER) (test code = 759) 17.5 seconds 11.7-14.7 H INR (BEAKER) (test code = 370) 1.5 <=5.9 RECOMMENDED COUMADIN/WARFARIN INR THERAPY RANGESSTANDARD DOSE: 2.0 - 3.0 Inclu herb: PROPHYLAXIS for venous thrombosis, systemic embolization; TREATMENT for giulia ous thrombosis and/or pulmonary embolus.HIGH RISK: Target INR is 2.5-3.5 for pat ients with mechanical heart valves.POCT-GLUCOSE [id number] 00:23:00* Test Item Value Reference Range Interpretation Comments POC-GLUCOSE METER (BEAKER) (test code = 1538) 183 mg/dL 70-110 H TESTED AT [place] [id number] HEMOGLOBIN AND [id number] 20:24:00* Test Item Value Reference Range Interpretation Comments HEMOGLOBIN (BEAKER) (test code = 410) 7.4 GM/DL 13.7-17.5 L HEMATOCRIT (BEAKER) (test code = 411) 22.3 % 40.1-51.0 L POCT-GLUCOSE [id number] 18:08:00* Test Item Value Reference Range Interpretation Comments POC-GLUCOSE METER (BEAKER) (test code = 1538) 171 mg/dL 70-110 H TESTED AT [address] [address] TISSUE [id number] 17:16:00Surgical Pathology Report Case: [id number] Authorizing Provider: Seven Tubbs MD Collected: 06/19/2018 1536 Ordering Location: [address] Received: 06/20/2018 0756 Pathologist: Jb Brock MD Specimen: Cecum, Cecal Ulcer Bx COLON, CECUM, ULCER, BIOPSY: - ATYPICAL LYMPHOID PROLIFERATION 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 Samm Arenas, [facility] Hematopathology, who concurs with the diagnosis. [id number] Cecal ulcer biops yThe specimen is received in a formalin-filled container and labeled with the p atient's information and labeled "cecal ulcer biopsy" and consists of a 0.2 cm f ragment of guajardo tissue, submitted entirely A1. CG/pl Performed.The following carlos tional immunohistochemical stains, were evaluated on the biopsy with appropriate controls:CD3, CD5, CD10, CD20, BCL-2, BCL-6, CyclinD1, Ki-67, [place], Lambda, PA X-5.CD3, CD5 and BCL-2 have similar patterns and highlight T lymphocytes. CD20 a nd PAX-5 highlights increased large, atypical appearing B cells. [place] and [place] da demonstrate polytypic plasma cells. CD10 and [...] KI-67.Immunohistochemistry technical te sting was performed at [facility], Pathology Laboratory wh ere it [...] to perform high complexity clinic al laboratory testing.[facility], Department of Pathology, [address] [place] [address], [facility], Department of [facility], [address] [place] [address], [facility], [facility] of [facility], [address] [place] [address], b-TYPE NATRIURETIC FACTOR (BNP) 2018-06-27 13:44:00* Test Item Value Reference Range Interpretation Comments B-TYPE NATRIURETIC PEPTIDE (BEAKER) (test code = 700) 179 pg/mL 0-100 H HEMOGLOBIN AND [id number] 13:18:00* Test Item Value Reference Range Interpretation Comments HEMOGLOBIN (BEAKER) (test code = 410) 7.9 GM/DL 13.7-17.5 L HEMATOCRIT (BEAKER) (test code = 411) 23.6 % 40.1-51.0 L CBC W/PLT COUNT & AUTO [id number] 13:10:00* Test Item Value Reference Range Interpretation [...] [place] Verified Date/Time: 06/27/2018 12:39:10 Reading Location: [facility] Radiology Reading Room -GLUCOSE [id number] 11:38:00 * Test Item Value Reference Range Interpretation Comments POC-GLUCOSE METER (BEAKER) (test code = 1538) 181 mg/dL 70-110 H TESTED AT [facility] [address] [facility] [address] HEMOGLOBIN AND [id number] 09:34:00* Test Item Value Reference Range Interpretation Comments HEMOGLOBIN (BEAKER) (test code = 410) 8.1 GM/DL 13.7-17.5 L HEMATOCRIT (BEAKER) (test code = 411) 24.9 % 40.1-51.0 L POCT-GLUCOSE [id number] 06:28:00* Test Item Value Reference Range Interpretation Comments POC-GLUCOSE METER (BEAKER) (test code = 1538) 161 mg/dL 70-110 H TESTED AT [facility] [address] [facility] [address] BASIC METABOLIC [id number] 06:04:00* Test Item Value Reference Range Interpretation [...] NOT APPLICABLE FOR DIALYSIS PATIENTS. Specimen markedly [id number] 06:00:00* Test Item Value Reference Range Interpretation Comments MAGNESIUM (BEAKER) (test code = 627) 1.9 mg/dL 1.6-2.6 HEPATIC FUNCTION [id number] 06:00:00* Test Item Value Reference Range Interpretation [...] 347) 170 U/L 6-55 H Specimen markedly [id number] 05:56:00* Test Item Value Reference Range Interpretation Comments PARTIAL THROMBOPLASTIN TIME (BEAKER) (test code = 760) 41.4 seconds 22.5-36.0 H PROTHROMBIN TIME/[id number] 05:55:00* Test Item Value Reference Range Interpretation [...] pat ients with mechanical heart valves.HEMOGLOBIN AND [id number] 05:33:00 * Test Item Value Reference Range Interpretation Comments HEMOGLOBIN (BEAKER) (test code = 410) 7.5 GM/DL 13.7-17.5 L HEMATOCRIT (BEAKER) (test code = 411) 23.3 % 40.1-51.0 L POCT-GLUCOSE [id number] 00:28:00* Test Item Value Reference Range Interpretation Comments POC-GLUCOSE METER (BEAKER) (test code = 1538) 153 mg/dL 70-110 H TESTED AT [facility] [address] [facility] [address] HEMOGLOBIN AND [id number] 00:15:00* Test Item Value Reference Range Interpretation Comments HEMOGLOBIN (BEAKER) (test code = 410) 6.8 GM/DL 13.7-17.5 L HEMATOCRIT (BEAKER) (test code = 411) 20.6 % 40.1-51.0 L HEMOGLOBIN AND [id number] 20:31:00* Test Item Value Reference Range Interpretation Comments HEMOGLOBIN (BEAKER) (test code = 410) 7.4 GM/DL 13.7-17.5 L HEMATOCRIT (BEAKER) (test code = 411) 22.5 % 40.1-51.0 L HEMOGLOBIN AND [id number] 18:54:00* Test Item Value Reference Range Interpretation Comments HEMOGLOBIN (BEAKER) (test code = 410) 7.4 GM/DL 13.7-17.5 L HEMATOCRIT (BEAKER) (test code = 411) 22.7 % 40.1-51.0 L POCT-GLUCOSE [id number] 18:17:00* Test Item Value Reference Range Interpretation Comments POC-GLUCOSE METER (BEAKER) (test code = 1538) 133 mg/dL 70-110 H TESTED AT [facility] [address] [facility] [address] [id number] 16:32:00* Test Item Value Reference Range Interpretation Comments FIBRINOGEN LEVEL (BEAKER) (test code = 658) 331 mg/dl 225-434 PT/[id number] 15:10:00* Test Item Value Reference Range Interpretation [...] pat ients with mechanical heart valves.HEMOGLOBIN AND [id number] 14:55:00 * Test Item Value Reference Range Interpretation Comments HEMOGLOBIN (BEAKER) (test code = 410) 7.7 GM/DL 13.7-17.5 L HEMATOCRIT (BEAKER) (test code = 411) 24.0 % 40.1-51.0 L CBC W/PLT COUNT & AUTO [id number] 14:09:00* Test Item Value Reference Range Interpretation [...] Received comment: User comments: Slide comments: BLOOD [id number] 14:03:00* Test Item Value Reference Range Interpretation Comments CULTURE (BEAKER) (test code = 1095) No growth in 5 days BLOOD [id number] 14:03:00* Test Item Value Reference Range Interpretation Comments CULTURE (BEAKER) (test code = 1095) No growth in 5 days POCT-GLUCOSE [id number] 11:51:00* Test Item Value Reference Range Interpretation Comments POC-GLUCOSE METER (BEAKER) (test code = 1538) 176 mg/dL 70-110 H TESTED AT [facility] [address] [facility] [address] HEMOGLOBIN AND [id number] 08:23:00* Test Item Value Reference Range Interpretation Comments HEMOGLOBIN (BEAKER) (test code = 410) 6.2 GM/DL 13.7-17.5 L HEMATOCRIT (BEAKER) (test code = 411) 18.9 % 40.1-51.0 L POCT-GLUCOSE [id number] 07:35:00* Test Item Value Reference Range Interpretation Comments POC-GLUCOSE METER (BEAKER) (test code = 1538) 172 mg/dL 70-110 H TESTED AT [facility] [address] [facility] [address] RAD, CHEST, 1 VIEW, NON [id number] 07:26:00Reason for exam:->Pulmonary edema evaluationShould this be [...] MDReport Verified Date/Time: 06/26/2018 07:26:15 Reading Location: [facility] Radiology Reading Room [id number] 05:04:00* Test Item Value Reference Range Interpretation Comments MAGNESIUM (BEAKER) (test code = 627) 1.9 mg/dL 1.6-2.6 BASIC METABOLIC [id number] 05:04:00* Test Item Value Reference Range Interpretation [...] FOR DIALYSIS PATIENTS. Specimen markedly ictericHEPATIC FUNCTION [id number] 05:04:00* Test Item Value Reference Range Interpretation [...] 347) 202 U/L 6-55 H Specimen markedly [id number] 04:54:00* Test Item Value Reference Range Interpretation Comments PARTIAL THROMBOPLASTIN TIME (BEAKER) (test code = 760) 39.3 seconds 22.5-36.0 H PROTHROMBIN TIME/[id number] 04:53:00* Test Item Value Reference Range Interpretation [...] pat ients with mechanical heart valves.HEMOGLOBIN AND [id number] 04:48:00 * Test Item Value Reference Range Interpretation Comments HEMOGLOBIN (BEAKER) (test code = 410) 7.2 GM/DL 13.7-17.5 L HEMATOCRIT (BEAKER) (test code = 411) 22.4 % 40.1-51.0 L HEMOGLOBIN AND [id number] 00:55:00* Test Item Value Reference Range Interpretation Comments HEMOGLOBIN (BEAKER) (test code = 410) 7.9 GM/DL 13.7-17.5 L HEMATOCRIT (BEAKER) (test code = 411) 24.4 % 40.1-51.0 L POCT-GLUCOSE [id number] 00:11:00* Test Item Value Reference Range Interpretation Comments POC-GLUCOSE METER (BEAKER) (test code = 1538) 130 mg/dL 70-110 H TESTED AT [facility] [address] [facility] [address] HEMOGLOBIN AND [id number] 21:55:00* Test Item Value Reference Range Interpretation Comments HEMOGLOBIN (BEAKER) (test code = 410) 7.8 GM/DL 13.7-17.5 L HEMATOCRIT (BEAKER) (test code = 411) 24.7 % 40.1-51.0 L HEMOGLOBIN AND [id number] 19:15:00* Test Item Value Reference Range Interpretation Comments HEMOGLOBIN (BEAKER) (test code = 410) 8.2 GM/DL 13.7-17.5 L HEMATOCRIT (BEAKER) (test code = 411) 25.5 % 40.1-51.0 L POCT-GLUCOSE [id number] 18:49:00* Test Item Value Reference Range Interpretation Comments POC-GLUCOSE METER (BEAKER) (test code = 1538) 159 mg/dL 70-110 H TESTED AT [place] [id number] [facility] [address] POCT-GLUCOSE [id number] 17:29:00* Test Item Value Reference Range Interpretation Comments POC-GLUCOSE METER (BEAKER) (test code = 1538) 104 mg/dL 70-110 [address]ED AT [address] [address] [address], CTA [id number] 14:14:00FINAL REPORT TECHNIQUE: CTA of the abdomen [...] Verified Date/Time: 06/25/2018 14:14:40 Jovani manjarrez Location: [address] Body Reading Room GLOBIN AND [id number] 12:47:00* Test Item Value Reference Range Interpretation Comments HEMOGLOBIN (BEAKER) (test code = 410) 7.9 GM/DL 13.7-17.5 L HEMATOCRIT (BEAKER) (test code = 411) 24.6 % 40.1-51.0 L POCT-GLUCOSE [id number] 12:19:00* Test Item Value Reference Range Interpretation Comments POC-GLUCOSE METER (BEAKER) (test code = 1538) 161 mg/dL 70-110 H TESTED AT [facility] [address] [place] [address] CBC W/PLT COUNT & AUTO [id number] 10:47:00* Test Item Value Reference Range Interpretation [...] 40.1-51.0 L RAD, CHEST, 1 VIEW, NON [id number] 07:29:00Reason for exam:->Pulmonary edema evaluationShould this be [...] Sloan Verified Date/Time: 06/25/2018 07:29:59 Reading Location: [facility] Radiology Reading Room [facility] signed by: ANDREW SLOAN M.D. on 06/25/2018 07:29 AM POCT-GLUCOSE METER 2018-06-25 06:28:00* Test Item Value Reference Range Interpretation Comments POC-GLUCOSE METER (BEAKER) (test code = 1538) 174 mg/dL 70-110 H TESTED AT [facility] [address] [facility] [address] [id number] 05:46:00* Test Item Value Reference Range Interpretation Comments PARTIAL THROMBOPLASTIN TIME (BEAKER) (test code = 760) 52.2 seconds 22.5-36.0 H PROTHROMBIN TIME/[id number] 05:44:00* Test Item Value Reference Range Interpretation Comments PROTIME (BEAKER) (test code = 759) 18.3 seconds 11.7-14.7 H INR (BEAKER) (test code = 370) 1.6 <=5.9 RECOMMENDED COUMADIN/WARFARIN INR THERAPY RANGESSTANDARD DOSE: 2.0 - 3.0 Inclu herb: PROPHYLAXIS for venous thrombosis, systemic embolization; TREATMENT for giulia ous thrombosis and/or pulmonary embolus.HIGH RISK: Target INR is 2.5-3.5 for pat ients with mechanical heart valves.[id number] 05:41:00* Test Item Value Reference Range Interpretation Comments MAGNESIUM (BEAKER) (test code = 627) 2.2 mg/dL 1.6-2.6 BASIC METABOLIC [id number] 05:41:00* Test Item Value Reference Range Interpretation [...] FOR DIALYSIS PATIENTS. Specimen markedly ictericHEPATIC FUNCTION [id number] 05:41:00* Test Item Value Reference Range Interpretation [...] 24 U/L 29-20 0 L BLOOD GAS, [id number] 05:35:00* Test Item Value Reference Range Interpretation [...] code = 1819) 40.0 % LACTIC ACID, [id number] 05:32:00* Test Item Value Reference Range Interpretation Comments LACTATE BLOOD ARTERIAL (2) (BEAKER) (test code = 2874) 0.5 mmol/L 0.5-2.2 Specimen markedly ictericPOCT-GLUCOSE [id number] 00:35:00* Test Item Value Reference Range Interpretation Comments POC-GLUCOSE METER (BEAKER) (test code = 1538) 140 mg/dL 70-110 H TESTED AT [facility] [address] [facility] [address] HEMOGLOBIN AND [id number] 00:32:00* Test Item Value Reference Range Interpretation Comments HEMOGLOBIN (BEAKER) (test code = 410) 8.3 GM/DL 13.7-17.5 L HEMATOCRIT (BEAKER) (test code = 411) 25.6 % 40.1-51.0 L POCT-GLUCOSE [id number] 18:59:00* Test Item Value Reference Range Interpretation Comments POC-GLUCOSE METER (BEAKER) (test code = 1538) 124 mg/dL 70-110 H TESTED AT [place] [id number] [facility] [address] HEMOGLOBIN AND [id number] 18:36:00* Test Item Value Reference Range Interpretation Comments HEMOGLOBIN (BEAKER) (test code = 410) 8.1 GM/DL 13.7-17.5 L HEMATOCRIT (BEAKER) (test code = 411) 25.1 % 40.1-51.0 L POCT-GLUCOSE [id number] 12:21:00* Test Item Value Reference Range Interpretation Comments POC-GLUCOSE METER (BEAKER) (test code = 1538) 133 mg/dL 70-110 H TESTED AT [place] [address] [facility] [address] RAD, CHEST, 1 VIEW, NON [id number] 09:38:00Reason for exam:->Pulmonary edema evaluationShould this be performed at the bedside?->YesFINAL REPORT Comparison: 06/23/2018 TECHNIQUE: Single view of the chest FINDINGS: Lung volumes are low. There is mild vascular congestion. No gross new lung parenchymal changes. Support lines and tubes are stable. Signed: Roberth Camp Verified Date/Time: 06/24/2018 09:38:51 Reading Location: [facility] Radiology Reading Room W/PLT COUNT & AUTO [id number] 09:00:00* Test Item Value Reference Range Interpretation [...] Received comment: User comments: Slide comments: POCT-GLUCOSE [id number] 06:48:00* Test Item Value Reference Range Interpretation Comments POC-GLUCOSE METER (BEAKER) (test code = 1538) 122 mg/dL 70-110 H TESTED AT [facility] [address] [facility] [address] POCT-GLUCOSE [id number] 05:09:00* Test Item Value Reference Range Interpretation Comments POC-GLUCOSE METER (BEAKER) (test code = 1538) 138 mg/dL 70-110 H TESTED AT [facility] [address] [facility] [address] BLOOD GAS, [id number] 04:42:00* Test Item Value Reference Range Interpretation [...] (BEAKER) (test code = 1819) 40.0 % [id number] 04:32:00* Test Item Value Reference Range Interpretation Comments MAGNESIUM (BEAKER) (test code = 627) 2.0 mg/dL 1.6-2.6 BASIC METABOLIC [id number] 04:32:00* Test Item Value Reference Range Interpretation [...] FOR DIALYSIS PATIENTS. Specimen markedly ictericHEPATIC FUNCTION [id number] 04:32:00* Test Item Value Reference Range Interpretation [...] U/L 6-55 H Specimen markedly ictericLACTIC ACID, [id number] 04:22:00* Test Item Value Reference Range Interpretation Comments LACTATE BLOOD ARTERIAL (2) (BEAKER) (test code = 2874) 0.6 mmol/L 0.5-2.2 Specimen moderately [id number] 04:17:00* Test Item Value Reference Range Interpretation Comments PARTIAL THROMBOPLASTIN TIME (BEAKER) (test code = 760) 50.9 seconds 22.5-36.0 H PROTHROMBIN [id number] 04:16:00* Test Item Value Reference Range Interpretation Comments PROTIME (BEAKER) (test code = 759) 18.0 seconds 11.7-14.7 H INR (BEAKER) (test code = 370) 1.6 <=5.9 RECOMMENDED COUMADIN/WARFARIN INR THERAPY RANGESSTANDARD DOSE: 2.0 - 3.0 Inclu herb: PROPHYLAXIS for venous thrombosis, systemic embolization; TREATMENT for giulia ous thrombosis and/or pulmonary embolus.HIGH RISK: Target INR is 2.5-3.5 for pat ients with mechanical heart valves.POCT-GLUCOSE [id number] 00:29:00* Test Item Value Reference Range Interpretation Comments POC-GLUCOSE METER (BEAKER) (test code = 1538) 113 mg/dL 70-110 H TESTED AT [facility] [address] [facility] [address] POCT-GLUCOSE [id number] 18:51:00* Test Item Value Reference Range Interpretation Comments POC-GLUCOSE METER (BEAKER) (test code = 1538) 108 mg/dL 70-110 TESTED AT [facility] [address] [facility] [address] (CELLAVISION MANUAL DIFF)2018-06-23 16:53:00* Test Item Value [...] Slide comments: CBC W/PLT COUNT & AUTO [id number] 16:33:00* Test Item Value Reference Range Interpretation [...] 0-1 H CBC W/PLT COUNT & AUTO [id number] 13:52:00* Test Item Value Reference Range Interpretation [...] Received comment: User comments: Slide comments: POCT-GLUCOSE [id number] 11:56:00* Test Item Value Reference Range Interpretation Comments POC-GLUCOSE METER (BEAKER) (test code = 1538) 115 mg/dL 70-110 H TESTED AT [facility] [address] [facility] [address] [id number] 07:07:00* Test Item Value Reference Range Interpretation Comments MAGNESIUM (BEAKER) (test code = 627) 1.9 mg/dL 1.6-2.6 BASIC METABOLIC [id number] 07:07:00* Test Item Value Reference Range Interpretation [...] FOR DIALYSIS PATIENTS. Specimen markedly ictericHEPATIC FUNCTION [id number] 07:07:00* Test Item Value Reference Range Interpretation [...] U/L 6-55 H Specimen markedly ictericHEMOGLOBIN AND [id number] 06:51:00* Test Item Value Reference Range Interpretation Comments HEMOGLOBIN (BEAKER) (test code = 410) 8.2 GM/DL 13.7-17.5 L HEMATOCRIT (BEAKER) (test code = 411) 25.0 % 40.1-51.0 L POCT-GLUCOSE [id number] 06:44:00* Test Item Value Reference Range Interpretation Comments POC-GLUCOSE METER (BEAKER) (test code = 1538) 121 mg/dL 70-110 H TESTED AT [facility] [address] [facility] [address] LACTIC ACID, [id number] 06:44:00* Test Item Value Reference Range Interpretation Comments LACTATE BLOOD ARTERIAL (2) (BEAKER) (test code = 2874) 0.7 mmol/L 0.5-2.2 Specimen markedly [id number] 06:40:00* Test Item Value Reference Range Interpretation Comments PARTIAL THROMBOPLASTIN TIME (BEAKER) (test code = 760) 44.7 seconds 22.5-36.0 H PROTHROMBIN TIME/[id number] 06:39:00* Test Item Value Reference Range Interpretation [...] pat ients with mechanical heart valves.BLOOD GAS, [id number] 06:36:00* Test Item Value Reference Range Interpretation [...] 40.0 % RAD, CHEST, 1 VIEW, NON [id number] 04:52:00Reason for exam:->Pulmonary edema evaluationShould this be [...] Stable surgical changes.Additional findings: None. Signed: Adri Avendañoeport Verified Date/Time: 06/23/2018 04:52:15 Reading Location: [address] Neuro Reading Room U/S, ABDOMINAL, [id number] 03:15:00Abdomen limited area? Add comment if clarification [...] trace pleural fluid. Hepatic steatosis Signed: Adri Avendañoort Verified Date/Time: 06/23/2018 03:15:49 Reading Location: [address] Neuro Reading Room GLOBIN AND [id number] 01:05:00* Test Item Value Reference Range Interpretation Comments HEMOGLOBIN (BEAKER) (test code = 410) 8.4 GM/DL 13.7-17.5 L HEMATOCRIT (BEAKER) (test code = 411) 25.9 % 40.1-51.0 L POCT-GLUCOSE [id number] 00:43:00* Test Item Value Reference Range Interpretation Comments POC-GLUCOSE METER (BEAKER) (test code = 1538) 180 mg/dL 70-110 H TESTED AT [address] [address] HEMOGLOBIN AND [id number] 21:03:00* Test Item Value Reference Range Interpretation Comments HEMOGLOBIN (BEAKER) (test code = 410) 8.6 GM/DL 13.7-17.5 L HEMATOCRIT (BEAKER) (test code = 411) 25.8 % 40.1-51.0 L POCT-GLUCOSE [id number] 18:20:00* Test Item Value Reference Range Interpretation Comments POC-GLUCOSE METER (BEAKER) (test code = 1538) 265 mg/dL 70-110 H TESTED AT [facility] [address] [facility] [address] HEMOGLOBIN AND [id number] 12:41:00* Test Item Value Reference Range Interpretation Comments HEMOGLOBIN (BEAKER) (test code = 410) 7.6 GM/DL 13.7-17.5 L HEMATOCRIT (BEAKER) (test code = 411) 23.4 % 40.1-51.0 L POCT-GLUCOSE [id number] 12:29:00* Test Item Value Reference Range Interpretation Comments POC-GLUCOSE METER (BEAKER) (test code = 1538) 150 mg/dL 70-110 H TESTED AT [facility] [address] [facility] [address] RAD, CHEST, 1 VIEW, NON [id number] 08:40:00Reason for exam:->Pulmonary edema evaluationShould this be [...] tube passes below the diaphragm. Signed: Kirt Sheffieldeport Verified Date/Time: 06/22/2018 08:40:31 Reading Location: [address] Transitional Reading Room - GLUCOSE [id number] 06:33:00* Test Item Value Reference Range Interpretation Comments POC-GLUCOSE METER (BEAKER) (test code = 1538) 159 mg/dL 70-110 H TESTED AT [facility] [address] [facility] [address] LACTIC ACID, [id number] 04:16:00* Test Item Value Reference Range Interpretation Comments LACTATE BLOOD ARTERIAL (2) (BEAKER) (test code = 2874) 0.5 mmol/L 0.5-2.2 Specimen markedly ictericBASIC METABOLIC [id number] 04:12:00* Test Item Value Reference Range Interpretation [...] APPLICABLE FOR DIALYSIS PATIENTS. Specimen markedly ictericCALCIUM, [id number] 04:10:00* Test Item Value Reference Range Interpretation Comments CALCIUM IONIZED (BEAKER) (test code = 698) 1.28 mmol/L 1.12-1.27 H PH, BLOOD (BEAKER) (test code = 1810) 7.41 Check serum Ionized Calcium level after 4 hours after IV Calcium replacement. BLOOD GAS, [id number] 04:05:00* Test Item Value Reference Range Interpretation [...] 40.0 % CBC W/PLT COUNT & AUTO [id number] 04:02:00* Test Item Value Reference Range Interpretation [...] code = 2801) 4 % 0-1 H [id number] 03:56:00* Test Item Value Reference Range Interpretation Comments MAGNESIUM (BEAKER) (test code = 627) 2.0 mg/dL 1.6-2.6 HEPATIC FUNCTION [id number] 03:56:00* Test Item Value Reference Range Interpretation [...] 347) 136 U/L 6-55 H Specimen markedly [id number] 03:53:00* Test Item Value Reference Range Interpretation Comments PARTIAL THROMBOPLASTIN TIME (BEAKER) (test code = 760) 40.4 seconds 22.5-36.0 H PROTHROMBIN [id number] 03:52:00* Test Item Value Reference Range Interpretation [...] pat ients with mechanical heart valves.HEMOGLOBIN AND [id number] 03:41:00 * Test Item Value Reference Range Interpretation Comments HEMOGLOBIN (BEAKER) (test code = 410) 8.1 GM/DL 13.7-17.5 L HEMATOCRIT (BEAKER) (test code = 411) 24.4 % 40.1-51.0 L BLOOD [id number] 01:25:00* Test Item Value Reference Range Interpretation Comments CULTURE (BEAKER) (test code = 1095) No growth in 5 days BLOOD [id number] 01:25:00* Test Item Value Reference Range Interpretation Comments CULTURE (BEAKER) (test code = 1095) No growth in 5 days HEMOGLOBIN AND [id number] 00:32:00* Test Item Value Reference Range Interpretation Comments HEMOGLOBIN (BEAKER) (test code = 410) 9.1 GM/DL 13.7-17.5 L HEMATOCRIT (BEAKER) (test code = 411) 27.2 % 40.1-51.0 L POCT-GLUCOSE [id number] 00:18:00* Test Item Value Reference Range Interpretation Comments POC-GLUCOSE METER (BEAKER) (test code = 1538) 189 mg/dL 70-110 H TESTED AT [facility] [address] [facility] [address] ANG, VISCERAL [id number] 22:13:00FINAL REPORT Mesenteric Arteriography Clinical History:GI bleed [...] inch guide wire was advanced. A 5 Australian sheath was util ized. A 5 chadian Baker catheter was placed selectively into the [...] Rogel Verified Date/Time: 06/21/2018 22:13:37 Reading Location: [facility] P[address] [facility] Body Reading Room Electronically signed by: KAI ROGEL M.D. on 05/28 10:13 PM RAD, ABDOMEN/KUB, 1 VIEW [id number] 20:57:00Reason for exam:-> abdominal distention sp coilsFINAL [...] MDReport Verified Date/Time: 06/21/2018 20:57:09 Reading Location: [facility] C013W Consult Reading Room W/PLT COUNT & AUTO [id number] 18:35:00* Test Item Value Reference Range Interpretation [...] Received comment: User comments: Slide comments: POCT-GLUCOSE [id number] 17:53:00* Test Item Value Reference Range Interpretation Comments POC-GLUCOSE METER (BEAKER) (test code = 1538) 212 mg/dL 70-110 H TESTED AT [address] [address] BASIC METABOLIC [id number] 17:52:00* Test Item Value Reference Range Interpretation [...] FOR DIALYSIS PATIENTS. Specimen markedly ictericLACTIC ACID, [id number] 17:45:00* Test Item Value Reference Range Interpretation Comments LACTATE BLOOD ARTERIAL (2) (BEAKER) (test code = 2874) 0.6 mmol/L 0.5-2.2 Specimen markedly ictericHEMOGLOBIN AND [id number] 17:32:00* Test Item Value Reference Range Interpretation Comments HEMOGLOBIN (BEAKER) (test code = 410) 7.4 GM/DL 13.7-17.5 L HEMATOCRIT (BEAKER) (test code = 411) 22.4 % 40.1-51.0 L BLOOD GAS, [id number] 17:25:00* Test Item Value Reference Range Interpretation [...] 0.0-5.0 H RAD, CHEST, 1 VIEW, NON [id number] 14:14:00Reason for exam:->line placementShould this be performed [...] MDReport Verified Date/Time: 06/21/2018 14:14:23 Reading Location: [facility] C013W Consult Reading Room GLOBIN AND [id number] 14:12:00* Test Item Value Reference Range Interpretation Comments HEMOGLOBIN (BEAKER) (test code = 410) 6.3 GM/DL 13.7-17.5 L HEMATOCRIT (BEAKER) (test code = 411) 19.7 % 40.1-51.0 L PROTHROMBIN [id number] 14:10:00* Test Item Value Reference Range Interpretation Comments PROTIME (BEAKER) (test code = 759) 18.5 seconds 11.7-14.7 H INR (BEAKER) (test code = 370) 1.5 <=5.9 RECOMMENDED COUMADIN/WARFARIN INR THERAPY RANGESSTANDARD DOSE: 2.0 - 3.0 Inclu herb: PROPHYLAXIS for venous thrombosis, systemic embolization; TREATMENT for giulia ous thrombosis and/or pulmonary embolus.HIGH RISK: Target INR is 2.5-3.5 for pat ients with mechanical heart valves.[id number] 14:10:00* Test Item Value Reference Range Interpretation Comments FIBRINOGEN LEVEL (BEAKER) (test code = 658) 405 mg/dl 225-434 [id number] 14:10:00* Test Item Value Reference Range Interpretation Comments PARTIAL THROMBOPLASTIN TIME (BEAKER) (test code = 760) 43.9 seconds 22.5-36.0 H LACTIC ACID, [id number] 13:57:00* Test Item Value Reference Range Interpretation Comments LACTATE BLOOD ARTERIAL (2) (BEAKER) (test code = 2874) 0.8 mmol/L 0.5-2.2 Specimen markedly ictericPLATELET [id number] 13:47:00* Test Item Value Reference Range Interpretation Comments PLATELET COUNT (BEAKER) (test code = 756) 347 K/CU MM 150-450 CALCIUM, [id number] 13:46:00* Test Item Value Reference Range Interpretation Comments CALCIUM IONIZED (BEAKER) (test code = 698) 1.03 mmol/L 1.12-1.27 L PH, BLOOD (BEAKER) (test code = 1810) 7.40 POTASSIUM-STAT [id number] 13:45:00* Test Item Value Reference Range Interpretation Comments POTASSIUM (BEAKER) (test code = 379) 3.3 meq/L 3.6-5.5 L GLUCOSE-STAT [id number] 13:45:00* Test Item Value Reference Range Interpretation Comments GLUCOSE RANDOM (BEAKER) (test code = 652) 213 mg/dL 70-110 H HGB/HCT (H&H) - STAT [id number] 13:45:00* Test Item Value Reference Range Interpretation Comments HEMOGLOBIN (BEAKER) (test code = 410) 6.4 g/dL 13.0-16.8 L HEMATOCRIT (BEAKER) (test code = 411) 19.0 % 40.0-50.0 L BLOOD GAS, [id number] 13:45:00* Test Item Value Reference Range Interpretation [...] code = 1819) 40.0 % SODIUM NA-STAT [id number] 13:44:00* Test Item Value Reference Range Interpretation Comments SODIUM (BEAKER) (test code = 381) 142 meq/L 135-148 [id number] 12:39:00* Test Item Value Reference Range Interpretation Comments PROCALCITONIN (BEAKER) (test code = 3036) 3.47 ng/mL <0.05 H SEPSIS RISK (ng/mL)Low: 0.05-0.50Intermediate: 0.51-2.00High: > =2.01POCT-GLUCOSE [id number] 12:37:00* Test Item Value Reference Range Interpretation Comments POC-GLUCOSE METER (BEAKER) (test code = 1538) 242 mg/dL 70-110 H TESTED AT [facility] [address] [facility] [address] LACTIC ACID, [id number] 12:37:00* Test Item Value Reference Range Interpretation Comments LACTATE BLOOD ARTERIAL (2) (BEAKER) (test code = 2874) 1.0 mmol/L 0.5-2.2 Specimen markedly ictericBLOOD GAS, [id number] 12:23:00* Test Item Value Reference Range Interpretation [...] code = 1819) 40.0 % HEMOGLOBIN AND [id number] 11:40:00* Test Item Value Reference Range Interpretation Comments HEMOGLOBIN (BEAKER) (test code = 410) 7.3 GM/DL 13.7-17.5 L HEMATOCRIT (BEAKER) (test code = 411) 22.6 % 40.1-51.0 L URINALYSIS W/ REFLEX URINE [id number] 11:19:00* Test Item Value Reference Range Interpretation [...] SOURCE(BEAKER) (test code = 2795) OXYGEN SATURATION, [id number] 11:10:00* Test Item Value Reference Range Interpretation Comments O2 SATURATION (MEASURED) (BEAKER) (test code = 1455) 63.5 % POCT-GLUCOSE [id number] 09:37:00* Test Item Value Reference Range Interpretation Comments POC-GLUCOSE METER (BEAKER) (test code = 1538) 258 mg/dL 70-110 H TESTED AT [facility] [address] [facility] [address] CBC W/PLT COUNT & AUTO [id number] 08:40:00* Test Item Value Reference Range Interpretation [...] MDReport Verified Date/Time: 06/21/2018 07:46:59 Reading Location: [facility] Radiology Reading Room TIC FUNCTION [id number] 04:40:00* Test Item Value Reference Range Interpretation [...] U/L 6-55 H Specimen markedly ictericBASIC METABOLIC [id number] 04:40:00* Test Item Value Reference Range Interpretation [...] NOT APPLICABLE FOR DIALYSIS PATIENTS. Specimen markedly [id number] 04:26:00* Test Item Value Reference Range Interpretation Comments MAGNESIUM (BEAKER) (test code = 627) 2.1 mg/dL 1.6-2.6 LACTIC ACID, [id number] 04:17:00* Test Item Value Reference Range Interpretation Comments LACTATE BLOOD ARTERIAL (2) (BEAKER) (test code = 2874) 1.0 mmol/L 0.5-2.2 Specimen markedly [id number] 04:12:00* Test Item Value Reference Range Interpretation Comments PARTIAL THROMBOPLASTIN TIME (BEAKER) (test code = 760) 47.7 seconds 22.5-36.0 H PROTHROMBIN [id number] 04:11:00* Test Item Value Reference Range Interpretation [...] pat ients with mechanical heart valves.BLOOD GAS, [id number] 03:57:00* Test Item Value Reference Range Interpretation [...] (BEAKER) (test code = 1819) 40.0 % [id number] 01:01:00* Test Item Value Reference Range Interpretation Comments POTASSIUM (BEAKER) (test code = 379) 3.4 meq/L 3.5-5.1 L PRN - repeat glucose levels every 1 hour or as specified by insulin titration or ders until glucose level is less than 450 mg/dLCheck Serum Potassium level 2 roxy rs after oral potassium replacement completed or 30 min after intravenous potass ium replacement.[id number] 01:01:00* Test Item Value Reference Range Interpretation Comments MAGNESIUM (BEAKER) (test code = 627) 2.0 mg/dL 1.6-2.6 PRN - repeat glucose levels every 1 hour or as specified by insulin titration or ders until glucose level is less than 450 mg/dLCheck Serum Potassium level 2 roxy rs after oral potassium replacement completed or 30 min after intravenous potass ium replacement.[id number] 01:01:00* Test Item Value Reference Range Interpretation Comments GLUCOSE RANDOM (BEAKER) (test code = 652) 220 mg/dL 70-105 H PRN - repeat glucose levels every 1 hour or as specified by insulin titration or ders until glucose level is less than 450 mg/dLCheck Serum Potassium level 2 roxy rs after oral potassium replacement completed or 30 min after intravenous potass ium replacement.CALCIUM, [id number] 00:47:00* Test Item Value Reference Range Interpretation Comments CALCIUM IONIZED (BEAKER) (test code = 698) 1.05 mmol/L 1.12-1.27 L PH, BLOOD (BEAKER) (test code = 1810) 7.48 Check serum Ionized Calcium level after 4 hours after IV Calcium replacement. BLOOD GAS, [id number] 21:09:00* Test Item Value Reference Range Interpretation [...] code = 1819) 40.0 % Before ventPOCT-GLUCOSE [id number] 17:55:00* Test Item Value Reference Range Interpretation Comments POC-GLUCOSE METER (BEAKER) (test code = 1538) 254 mg/dL 70-110 H TESTED AT [address] [address] BASIC METABOLIC [id number] 17:37:00* Test Item Value Reference Range Interpretation [...] FOR DIALYSIS PATIENTS. Specimen markedly ictericHEMOGLOBIN AND [id number] 17:18:00* Test Item Value Reference Range Interpretation Comments HEMOGLOBIN (BEAKER) (test code = 410) 8.2 GM/DL 13.7-17.5 L HEMATOCRIT (BEAKER) (test code = 411) 24.9 % 40.1-51.0 L CALCIUM, [id number] 17:14:00* Test Item Value Reference Range Interpretation Comments CALCIUM IONIZED (BEAKER) (test code = 698) 1.04 mmol/L 1.12-1.27 L PH, BLOOD (BEAKER) (test code = 1810) 7.49 Check serum Ionized Calcium level after 4 hours after IV Calcium replacement. POCT-GLUCOSE [id number] 17:00:00* Test Item Value Reference Range Interpretation Comments POC-GLUCOSE METER (BEAKER) (test code = 1538) 238 mg/dL 70-110 H TESTED AT [address] [address] POCT-GLUCOSE [id number] 11:59:00* Test Item Value Reference Range Interpretation Comments POC-GLUCOSE METER (BEAKER) (test code = 1538) 199 mg/dL 70-110 H TESTED AT [address] [address] BASIC METABOLIC [id number] 10:07:00* Test Item Value Reference Range Interpretation [...] FOR DIALYSIS PATIENTS. Specimen markedly ictericHEMOGLOBIN AND [id number] 09:56:00* Test Item Value Reference Range Interpretation Comments HEMOGLOBIN (BEAKER) (test code = 410) 8.2 GM/DL 13.7-17.5 L HEMATOCRIT (BEAKER) (test code = 411) 24.9 % 40.1-51.0 L SPUTUM CULTURE + GRAM [id number] 09:21:00* Test Item Value Reference Range Interpretation Comments CULTURE (BEAKER) (test code = 1095) <1+ Normal respiratory chase pr esent GRAM STAIN RESULT (BEAKER) (test code = 1123) <1+ WBCs GRAM STAIN RESULT (BEAKER) (test code = 15558) 0-5 epithelial cells GRAM STAIN RESULT (BEAKER) (test code = 51505) No organisms seen CBC W/PLT COUNT & AUTO [id number] 08:52:00* Test Item Value Reference Range Interpretation [...] quate Received comment: User comments: Slide comments: [id number] 08:27:00* Test Item Value Reference Range Interpretation Comments T3 TOTAL (BEAKER) (test code = 656) 55 ng/dL 48-159 CALCIUM, [id number] 05:17:00* Test Item Value Reference Range Interpretation Comments CALCIUM IONIZED (BEAKER) (test code = 698) 1.01 mmol/L 1.12-1.27 L PH, BLOOD (BEAKER) (test code = 1810) 7.43 HEPATIC FUNCTION [id number] 05:05:00* Test Item Value Reference Range Interpretation [...] U/L 6-55 H Specimen markedly ictericBASIC METABOLIC [id number] 05:05:00* Test Item Value Reference Range Interpretation [...] NOT APPLICABLE FOR DIALYSIS PATIENTS. Specimen markedly [id number] 05:04:00* Test Item Value Reference Range Interpretation Comments MAGNESIUM (BEAKER) (test code = 627) 2.2 mg/dL 1.6-2.6 RAD, CHEST, 1 VIEW, NON [id number] 04:59:00Reason for exam:->Pulmonary edema evaluationShould this be [...] Avendaño Verified Date/Time: 06/20/2018 04:59:55 Reading Location: [address] Neuro Reading Room [id number] 04:44:00* Test Item Value Reference Range Interpretation Comments PARTIAL THROMBOPLASTIN TIME (BEAKER) (test code = 760) 45.0 seconds 22.5-36.0 H PROTHROMBIN [id number] 04:43:00* Test Item Value Reference Range Interpretation [...] pat ients with mechanical heart valves.LACTIC ACID, [id number] 04:41:00* Test Item Value Reference Range Interpretation Comments LACTATE BLOOD ARTERIAL (2) (BEAKER) (test code = 2874) 0.6 mmol/L 0.5-2.2 Specimen markedly ictericBLOOD GAS, [id number] 04:29:00* Test Item Value Reference Range Interpretation [...] code = 1819) 40.0 % BASIC METABOLIC [id number] 01:12:00* Test Item Value Reference Range Interpretation [...] FOR DIALYSIS PATIENTS. Specimen markedly ictericHEMOGLOBIN AND [id number] 00:24:00* Test Item Value Reference Range Interpretation Comments HEMOGLOBIN (BEAKER) (test code = 410) 8.3 GM/DL 13.7-17.5 L HEMATOCRIT (BEAKER) (test code = 411) 25.0 % 40.1-51.0 L POCT-GLUCOSE [id number] 00:18:00* Test Item Value Reference Range Interpretation Comments POC-GLUCOSE METER (BEAKER) (test code = 1538) 233 mg/dL 70-110 H TESTED AT [facility] [address] [place] [address] HEMOGLOBIN AND [id number] 20:18:00* Test Item Value Reference Range Interpretation Comments HEMOGLOBIN (BEAKER) (test code = 410) 8.4 GM/DL 13.7-17.5 L HEMATOCRIT (BEAKER) (test code = 411) 25.0 % 40.1-51.0 L BASIC METABOLIC [id number] 19:06:00* Test Item Value Reference Range Interpretation [...] FOR DIALYSIS PATIENTS. Specimen markedly ictericBASIC METABOLIC [id number] 19:06:00* Test Item Value Reference Range Interpretation [...] FOR DIALYSIS PATIENTS. Specimen markedly ictericHEMOGLOBIN AND [id number] 18:48:00* Test Item Value Reference Range Interpretation Comments HEMOGLOBIN (BEAKER) (test code = 410) 8.3 GM/DL 13.7-17.5 L HEMATOCRIT (BEAKER) (test code = 411) 25.7 % 40.1-51.0 L POCT-GLUCOSE [id number] 17:33:00* Test Item Value Reference Range Interpretation Comments POC-GLUCOSE METER (BEAKER) (test code = 1538) 193 mg/dL 70-110 H TESTED AT [facility] [address] [facility] [address] CYTOMEGALOVIRUS ANTIBODY, [id number] 14:16:00* Test Item Value Reference Range Interpretation Comments CYTOMEGALOVIRUS, IGG (BEAKER) (test code = 3429) Negative Negat mumtaz, Equivocal CMV IgG Result Interpretation: </= 0.8 Al Negative 0.9-1.0 Al Equivocal > /=1.1 Al PositiveCYTOMEGALOVIRUS ANTIBODY, [id number] 14:16:00* Test Item Value Reference Range Interpretation Comments CYTOMEGALOVIRUS IGM ANTIBODY (BEAKER) (test code = 3437) Neg ative Negative, Equivocal CMV IgM Result Interpretation: </= 0.8 Al Negative 0.9-1.0 Al Equivocal > /= 1.1 Al PositiveEBV ANTIBODY, [id number] 14:16:00* Test Item Value Reference Range Interpretation Comments ALEX LARES VIRAL CAPSID ANTIGEN IGG (BEAKER) (test code = 3415) Positive Negative, Equivocal A Alex Lares Viral Capsid Antigen IgG Result Interpretation: </= 0.8 Al Negative 0.9-1.0 Al Equivocal >/= 1.1 Al PositiveEBV ANTIBODY, [id number] 14:16:00* Test Item Value Reference Range Interpretation [...] = 411) 26.4 % 40.1-51.0 L POCT-GLUCOSE [id number] 12:45:00* Test Item Value Reference Range Interpretation Comments POC-GLUCOSE METER (BEAKER) (test code = 1538) 204 mg/dL 70-110 H TESTED AT [facility] [address] [facility] [address] CBC W/PLT COUNT & AUTO [id number] 11:32:00* Test Item Value Reference Range Interpretation [...] manually reviewed rbc morp hology on the [id number] 11:25:00* Test Item Value Reference Range Interpretation Comments RPR SCREEN (BEAKER) (test code = 420) Nonreactive Nonreactive [id number] 11:23:00* Test Item Value Reference Range Interpretation Comments AMMONIA (BEAKER) (test code = 348) 62 mol/L 18-72 HEMOGLOBIN AND [id number] 10:37:00* Test Item Value Reference Range Interpretation Comments HEMOGLOBIN (BEAKER) (test code = 410) 7.9 GM/DL 13.7-17.5 L HEMATOCRIT (BEAKER) (test code = 411) 24.4 % 40.1-51.0 L BASIC METABOLIC [id number] 09:29:00* Test Item Value Reference Range Interpretation [...] APPLICABLE FOR DIALYSIS PATIENTS. Specimen markedly ictericPOCT-GLUCOSE [id number] 08:36:00* Test Item Value Reference Range Interpretation Comments POC-GLUCOSE METER (BEAKER) (test code = 1538) 211 mg/dL 70-110 H TESTED AT [facility] [address] [facility] [address] RAD, CHEST, 1 VIEW, NON [id number] 07:24:00Reason for exam:->Pulmonary edema evaluationShould this be [...] MDReport Verified Date/Time: 06/19/2018 07:24:06 Reading Location: [facility] C013V Neuro Reading Room Electronically signed by: OMERO MOURA M.D. on 07:24 AM [id number] 05:40:00* Test Item Value Reference Range Interpretation Comments PARTIAL THROMBOPLASTIN TIME (BEAKER) (test code = 760) 44.4 seconds 22.5-36.0 H PROTHROMBIN TIME/[id number] 05:39:00* Test Item Value Reference Range Interpretation [...] pat ients with mechanical heart valves.HEPATIC FUNCTION [id number] 05:17:00* Test Item Value Reference Range Interpretation [...] U/L 6-55 H Specimen markedly ictericBASIC METABOLIC [id number] 05:17:00* Test Item Value Reference Range Interpretation [...] NOT APPLICABLE FOR DIALYSIS PATIENTS. Specimen markedly [id number] 05:13:00* Test Item Value Reference Range Interpretation Comments PHOSPHORUS (BEAKER) (test code = 604) 5.3 mg/dL 2.3-4.7 H [id number] 05:13:00* Test Item Value Reference Range Interpretation Comments MAGNESIUM (BEAKER) (test code = 627) 2.2 mg/dL 1.6-2.6 LACTIC ACID, [id number] 04:57:00* Test Item Value Reference Range Interpretation Comments LACTATE BLOOD ARTERIAL (2) (BEAKER) (test code = 2874) 0.7 mmol/L 0.5-2.2 Specimen markedly ictericCALCIUM, [id number] 04:46:00* Test Item Value Reference Range Interpretation Comments CALCIUM IONIZED (BEAKER) (test code = 698) 1.07 mmol/L 1.12-1.27 L PH, BLOOD (BEAKER) (test code = 1810) 7.47 BLOOD GAS, [id number] 04:46:00* Test Item Value Reference Range Interpretation [...] code = 1819) 40.0 % OCCULT BLOOD, [id number] 01:25:00* Test Item Value Reference Range Interpretation Comments FECAL OCCULT BLOOD (BEAKER) (test code = 618) Positive Negative A BASIC METABOLIC [id number] 23:56:00* Test Item Value Reference Range Interpretation [...] APPLICABLE FOR DIALYSIS PATIENTS. Specimen markedly ictericCALCIUM, [id number] 23:54:00* Test Item Value Reference Range Interpretation Comments CALCIUM IONIZED (BEAKER) (test code = 698) 1.11 mmol/L 1.12-1.27 L PH, BLOOD (BEAKER) (test code = 1810) 7.46 Check serum Ionized Calcium level after 4 hours after IV Calcium replacement. HEMOGLOBIN AND [id number] 23:37:00* Test Item Value Reference Range Interpretation Comments HEMOGLOBIN (BEAKER) (test code = 410) 7.0 GM/DL 13.7-17.5 L HEMATOCRIT (BEAKER) (test code = 411) 22.2 % 40.1-51.0 L POCT-GLUCOSE [id number] 23:36:00* Test Item Value Reference Range Interpretation Comments POC-GLUCOSE METER (BEAKER) (test code = 1538) 161 mg/dL 70-110 H TESTED AT [facility] [address] [facility] [address] HEMOGLOBIN AND [id number] 20:42:00* Test Item Value Reference Range Interpretation Comments HEMOGLOBIN (BEAKER) (test code = 410) 7.2 GM/DL 13.7-17.5 L HEMATOCRIT (BEAKER) (test code = 411) 22.3 % 40.1-51.0 L CBC W/PLT COUNT & AUTO [id number] 18:06:00* Test Item Value Reference Range Interpretation [...] Received comment: User comments: Slide comments: POCT-GLUCOSE [id number] 17:33:00* Test Item Value Reference Range Interpretation Comments POC-GLUCOSE METER (BEAKER) (test code = 1538) 196 mg/dL 70-110 H TESTED AT [facility] [address] [facility] [address] BASIC METABOLIC [id number] 17:24:00* Test Item Value Reference Range Interpretation [...] NOT APPLICABLE FOR DIALYSIS PATIENTS. Specimen markedly [id number] 14:47:00* Test Item Value Reference Range Interpretation Comments T4 TOTAL (BEAKER) (test code = 895) 8.1 ug/dL 4.9-11.7 CRYPTOCOCCAL [id number] 14:31:00* Test Item Value Reference Range Interpretation Comments CRYPTOCOCCAL ANTIGEN, SERUM (BEAKER) (test code = 1828) Nega tive Negative, Interference [id number] 14:20:00* Test Item Value Reference Range Interpretation Comments FERRITIN ([facility]) (test code = 361) 2332 ng/mL 5-275 H LIPID [id number] 14:07:00* Test Item Value Reference Range Interpretation Comments TRIGLYCERIDES ([facility]) (test code = 540) 364 mg/dL CHOLESTEROL ([facility]) (test code = 631) 120 mg/dL HDL CHOLESTEROL (GAURAVAKER) (test code = 976) 6 mg/dL LDL CHOLESTEROL CALCULATED ([facility]) (test code = 633) 41 mg/dL Unable to calculate Triglyceride Reference Range: Low Risk <150 Borderline 150-199 High Risk 200-499 Very High Risk >=500Cholesterol Reference Range: Low Risk <200 Borderline 200-239 High Risk >240HDL Cholesterol Reference Range: Low Risk >=60 High Risk <40LDL Cholesterol Reference Range: Optimal <100 Near Optimal 100-129 Borderline 130-159 High 160-189 Very High >=190 Specimen markedly [id number] 13:01:00* Test Item Value Reference Range Interpretation Comments PROSTATE SPECIFIC ANTIGEN ([facility]) (test code = 844) 0.5 ng/mL 0 .0-4.0 HIV-1 ANTIGEN WITH HIV-1/2 [id number] 13:01:00* Test Item Value Reference Range Interpretation Comments HIV-1 ANTIGEN WITH HIV 1\\T\\2 ANTIBODY (2) ([facility]) (te st code = 2586) Nonreactive Nonreactive CARCINOEMBRYONIC ANTIGEN ([facility])2018-06-18 13:01:00* Test Item Value Reference Range Interpretation Comments CARCINOEMBRYONIC ANTIGEN ([facility]) (test code = 685) 16.6 ng/mL 0. 0-5.0 H VITAMIN D, 80-[id number] 13:01:00* Test Item Value Reference Range Interpretation Comments VITAMIN D 25-OH ([facility]) (test code = 2764) 14.7 ng/mL 6.6-49.9 Effective 12/06/2016: Reference Range ChangeNew: 6.6-49.9 ng/mL Previous: 13.0 -47.8 ng/mLRecommended Vitamin D Target Range: 30.0-40.0 ng/mLPOCT-GLUCOSE METER 2018-06-18 12:53:00* Test Item Value Reference Range Interpretation Comments POC-GLUCOSE METER (BEAKER) (test code = 1538) 239 mg/dL 70-110 H TESTED AT [facility] [address] [facility] [address] [id number] 12:43:00* Test Item Value Reference Range Interpretation Comments TRANSFERRIN (BEAKER) (test code = 541) 112 mg/dL 174-382 L Specimen markedly ictericURIC [id number] 12:42:00* Test Item Value Reference Range Interpretation Comments URIC ACID (BEAKER) (test code = 773) 15.6 mg/dL 2.6-7.2 H Specimen markedly ictericGAMMA GLUTAMYL TRANSFERASE (GGT)2018-06-18 12:42:00* Test Item Value Reference Range Interpretation Comments GAMMA GLUTAMYL TRANSFERASE (BEAKER) (test code = 364) 125 U/L 9-64 H Specimen markedly [id number] 12:40:00* Test Item Value Reference Range Interpretation Comments ETHANOL (BEAKER) (test code = 400) < mg/dL <=10 [id number] 12:35:00* Test Item Value Reference Range Interpretation Comments FIBRINOGEN LEVEL (BEAKER) (test code = 658) 811 mg/dl 225-434 H BLOOD [id number] 11:56:00* Test Item Value Reference Range Interpretation Comments CULTURE (BEAKER) (test code = 1095) No growth in 5 days BLOOD [id number] 11:56:00* Test Item Value Reference Range Interpretation Comments CULTURE (BEAKER) (test code = 1095) No growth in 5 days CALCIUM, [id number] 11:40:00* Test Item Value Reference Range Interpretation Comments CALCIUM IONIZED (BEAKER) (test code = 698) 1.12 mmol/L 1.12-1.27 PH, BLOOD (BEAKER) (test code = 1810) 7.49 CBC W/PLT COUNT & AUTO [id number] 08:56:00* Test Item Value Reference Range Interpretation [...] WBC: SEGMENTED WITH TOXIG GRANU LATION PRESENT [id number] 08:54:00* Test Item Value Reference Range Interpretation Comments MAGNESIUM (BEAKER) (test code = 627) 2.3 mg/dL 1.6-2.6 BASIC METABOLIC [id number] 08:54:00* Test Item Value Reference Range Interpretation [...] APPLICABLE FOR DIALYSIS PATIENTS. Specimen markedly ictericPOCT-GLUCOSE [id number] 08:29:00* Test Item Value Reference Range Interpretation Comments POC-GLUCOSE METER (BEAKER) (test code = 1538) 223 mg/dL 70-110 H TESTED AT [facility] [address] [facility] [address] RAD, CHEST, 1 VIEW, NON [id number] 04:54:00Reason for exam:->Pulmonary edema evaluationShould this be [...] Verified D ate/Time: 06/18/2018 04:54:27 Reading Location: [facility] B1 C013Y CT Body Reading Ro om D GAS, [id number] 04:39:00* Test Item Value Reference Range Interpretation [...] code = 1819) 40.0 % HEPATIC FUNCTION [id number] 04:35:00* Test Item Value Reference Range Interpretation [...] 347) 138 U/L 6-55 H Specimen markedly [id number] 04:34:00* Test Item Value Reference Range Interpretation Comments MAGNESIUM (BEAKER) (test code = 627) 2.5 mg/dL 1.6-2.6 BASIC METABOLIC [id number] 04:34:00* Test Item Value Reference Range Interpretation [...] code = 380) 50 U/L 29-20 0 [id number] 04:23:00* Test Item Value Reference Range Interpretation Comments PARTIAL THROMBOPLASTIN TIME (BEAKER) (test code = 760) 49.4 seconds 22.5-36.0 H PROTHROMBIN [id number] 04:22:00* Test Item Value Reference Range Interpretation [...] pat ients with mechanical heart valves.LACTIC ACID, [id number] 04:17:00* Test Item Value Reference Range Interpretation Comments LACTATE BLOOD ARTERIAL (2) (BEAKER) (test code = 2874) 1.3 mmol/L 0.5-2.2 Specimen markedly [id number] 00:59:00* Test Item Value Reference Range Interpretation Comments MAGNESIUM (BEAKER) (test code = 627) 2.1 mg/dL 1.6-2.6 BASIC METABOLIC [id number] 00:59:00* Test Item Value Reference Range Interpretation [...] APPLICABLE FOR DIALYSIS PATIENTS. Specimen markedly ictericPOCT-GLUCOSE [id number] 00:20:00* Test Item Value Reference Range Interpretation Comments POC-GLUCOSE METER (BEAKER) (test code = 1538) 155 mg/dL 70-110 H TESTED AT [facility] [address] [facility] [address] POCT-GLUCOSE [id number] 18:09:00* Test Item Value Reference Range Interpretation Comments POC-GLUCOSE METER (BEAKER) (test code = 1538) 187 mg/dL 70-110 H TESTED AT [place] [id number] [facility] [address] BASIC METABOLIC [id number] 16:09:00* Test Item Value Reference Range Interpretation [...] APPLICABLE FOR DIALYSIS PATIENTS. Specimen markedly ictericPOCT-GLUCOSE [id number] 12:03:00* Test Item Value Reference Range Interpretation Comments POC-GLUCOSE METER (BEAKER) (test code = 1538) 212 mg/dL 70-110 H TESTED AT [facility] [address] [facility] [address] [id number] 11:52:00* Test Item Value Reference Range Interpretation Comments MAGNESIUM (BEAKER) (test code = 627) 2.0 mg/dL 1.6-2.6 BASIC METABOLIC [id number] 11:52:00* Test Item Value Reference Range Interpretation [...] Specimen markedly ictericPERIPHERAL BLOOD SMEAR - PATHOLOGIST [id number] 08:37:00* Test Item Value Reference Range Interpretation Comments PERIPHERAL SMR REVIEW (BEAKER) (test code = 2640) Left shifted granulocytes with toxic changes. No circulating blasts. No significantly increased schistocytes. [id number] (BEAKER) (test code = 2849) Raul Arenas M.D.(electronic signature) RAD, CHEST, 1 VIEW, NON [id number] 08:15:00Reason for exam:->Pulmonary edema evaluationShould this be performed at the bedside?->YesFINAL REPORT Chest, one view. HISTORY: Pulmonary edema evaluation COMPARISON: Radiograph from 06/16/2018 IMPRESSION: Unchanged positioning of support lines and tubes. The interstitial edema is unchanged. No pleural effusion or pneumothorax. The cardiac silhouette is unchanged. No acute bony abnormality. Signed: Kyle Rae Verified Date/Time: 06/17/2018 08:15:08 Reading Location: [facility] Radiology Reading Room LT BLOOD, [id number] 07:04:00* Test Item Value Reference Range Interpretation Comments FECAL OCCULT BLOOD (BEAKER) (test code = 618) Negative Negative POCT-GLUCOSE [id number] 06:28:00* Test Item Value Reference Range Interpretation Comments POC-GLUCOSE METER (BEAKER) (test code = 1538) 209 mg/dL 70-110 H TESTED AT [facility] [address] [facility] [address] [id number] 05:05:00* Test Item Value Reference Range Interpretation Comments PARTIAL THROMBOPLASTIN TIME (BEAKER) (test code = 760) 51.6 seconds 22.5-36.0 H PROTHROMBIN [id number] 05:04:00* Test Item Value Reference Range Interpretation [...] pat ients with mechanical heart valves.HEPATIC FUNCTION [id number] 04:18:00* Test Item Value Reference Range Interpretation [...] 347) 146 U/L 6-55 H Specimen markedly [id number] 03:59:00* Test Item Value Reference Range Interpretation Comments MAGNESIUM (BEAKER) (test code = 627) 2.4 mg/dL 1.6-2.6 BASIC METABOLIC [id number] 03:59:00* Test Item Value Reference Range Interpretation [...] NOT APPLICABLE FOR DIALYSIS PATIENTS. Specimen markedly [id number] 03:59:00* Test Item Value Reference Range Interpretation Comments AMYLASE (BEAKER) (test code = 349) 49 U/L 25-125 Specimen markedly [id number] 03:59:00* Test Item Value Reference Range Interpretation Comments LIPASE (BEAKER) (test code = 749) 186 U/L 8-78 H Specimen markedly ictericLACTIC ACID, [id number] 03:41:00* Test Item Value Reference Range Interpretation Comments LACTATE BLOOD ARTERIAL (2) (BEAKER) (test code = 2874) 1.5 mmol/L 0.5-2.2 Specimen markedly ictericCBC W/PLT COUNT & AUTO [id number] 03:38:00 * Test Item Value Reference Range [...] 2801) 3 % 0-1 H BLOOD GAS, [id number] 03:30:00* Test Item Value Reference Range Interpretation [...] (test code = 1819) 40.0 % CALCIUM, [id number] 03:28:00* Test Item Value Reference Range Interpretation Comments CALCIUM IONIZED (BEAKER) (test code = 698) 1.14 mmol/L 1.12-1.27 PH, BLOOD (BEAKER) (test code = 1810) 7.53 Check serum Ionized Calcium level after 4 hours after IV Calcium replacement. POCT-GLUCOSE [id number] 00:11:00* Test Item Value Reference Range Interpretation Comments POC-GLUCOSE METER (BEAKER) (test code = 1538) 233 mg/dL 70-110 H TESTED AT [facility] [address] [facility] [address] HEMOGLOBIN AND [id number] 23:41:00* Test Item Value Reference Range Interpretation Comments HEMOGLOBIN (BEAKER) (test code = 410) 8.3 GM/DL 13.7-17.5 L HEMATOCRIT (BEAKER) (test code = 411) 26.1 % 40.1-51.0 L [id number] 20:50:00* Test Item Value Reference Range Interpretation Comments MAGNESIUM (BEAKER) (test code = 627) 2.5 mg/dL 1.6-2.6 BASIC METABOLIC [id number] 20:50:00* Test Item Value Reference Range Interpretation [...] APPLICABLE FOR DIALYSIS PATIENTS. Specimen markedly ictericCALCIUM, [id number] 20:26:00* Test Item Value Reference Range Interpretation Comments CALCIUM IONIZED (BEAKER) (test code = 698) 1.11 mmol/L 1.12-1.27 L PH, BLOOD (BEAKER) (test code = 1810) 7.53 Check serum Ionized Calcium level after 4 hours after IV Calcium replacement. POCT-GLUCOSE [id number] 20:07:00* Test Item Value Reference Range Interpretation Comments POC-GLUCOSE METER (BEAKER) (test code = 1538) 203 mg/dL 70-110 H TESTED AT [facility] [address] [facility] [address] POCT-GLUCOSE [id number] 16:57:00* Test Item Value Reference Range Interpretation Comments POC-GLUCOSE METER (BEAKER) (test code = 1538) 130 mg/dL 70-110 H TESTED AT [facility] [address] [facility] [address] VITAMIN B12 AND [id number] 16:12:00* Test Item Value Reference Range Interpretation Comments VITAMIN B12 (BEAKER) (test code = 774) 1499 pg/mL 213-816 H FOLATE (BEAKER) (test code = 362) 14.9 ng/mL >=7.0 POCT-GLUCOSE [id number] 15:35:00* Test Item Value Reference Range Interpretation Comments POC-GLUCOSE METER (BEAKER) (test code = 1538) 101 mg/dL 70-110 TESTED AT [facility] [address] [facility] [address] (MANUAL DIFFERENTIAL)2018-06-16 14:42:00* Test Item Value Reference [...] RBCS(BEAKER) (test code = 478) 1+ few [id number] 14:16:00* Test Item Value Reference Range Interpretation Comments HAPTOGLOBIN (BEAKER) (test code = 366) 250 mg/dL 14-258 [id number] 14:09:00* Test Item Value Reference Range Interpretation Comments MAGNESIUM (BEAKER) (test code = 627) 2.1 mg/dL 1.6-2.6 BASIC METABOLIC [id number] 14:09:00* Test Item Value Reference Range Interpretation [...] NOT APPLICABLE FOR DIALYSIS PATIENTS. Specimen markedly [id number] 14:09:00* Test Item Value Reference Range Interpretation Comments AMYLASE (BEAKER) (test code = 349) 55 U/L 25-125 Specimen markedly ictericLACTATE DEHYDROGENASE (LDH)2018-06-16 14:09:00* Test Item Value Reference Range Interpretation Comments LACTATE DEHYDROGENASE (BEAKER) (test code = 635) 388 U/L 125-2 20 H [id number] 14:09:00* Test Item Value Reference Range Interpretation [...] = 2590) 30 % 20-5 5 IRON, [id number] 14:04:00* Test Item Value Reference Range Interpretation Comments IRON (BEAKER) (test code = 547) 37.0 ug/dL 40.0-160.0 L LACTIC ACID, [id number] 14:02:00* Test Item Value Reference Range Interpretation [...] 0 /100 WBC 0 -0 BLOOD GAS, [id number] 13:45:00* Test Item Value Reference Range Interpretation [...] (test code = 1819) 100.0 % POCT-GLUCOSE [id number] 13:23:00* Test Item Value Reference Range Interpretation Comments POC-GLUCOSE METER (BEAKER) (test code = 1538) 121 mg/dL 70-110 H TESTED AT [address] [address] POCT-GLUCOSE [id number] 11:05:00* Test Item Value Reference Range Interpretation Comments POC-GLUCOSE METER (BEAKER) (test code = 1538) 145 mg/dL 70-110 H TESTED AT [address] [address] POCT-GLUCOSE [id number] 08:56:00* Test Item Value Reference Range Interpretation Comments POC-GLUCOSE METER (BEAKER) (test code = 1538) 147 mg/dL 70-110 H TESTED AT [address] [address] CBC W/PLT COUNT & AUTO [id number] 08:10:00* Test Item Value Reference Range Interpretation [...] 1+ few RAD, CHEST, 1 VIEW, NON [id number] 07:59:00Reason for exam:->Pulmonary edema evaluationShould this be performed at the bedside?->YesFINAL REPORT INDICATION: Pulmonary edema evaluation COMPARISON:June 15. TECHNIQUE: Chest radiograph, single view, portable technique. FINDINGS / IMPRESSION: Prominent heart shadow and diffuse interstitial pulmonary edema are again demonstrated. Support lines and tubes unchanged and appear satisfactory. No pneumothorax. Signed: Natalio Santillan Verified Date/Time: 06/16/2018 07:59:49 Reading Location: [address] Consult Reading Room Electron [facility] signed by: NATALIO SANTILLAN M.D. on 06/16/2018 07:59 AM POCT- GLUCOSE [id number] 07:05:00* Test Item Value Reference Range Interpretation Comments POC-GLUCOSE METER (BEAKER) (test code = 1538) 114 mg/dL 70-110 H TESTED AT [facility] [address] [facility] [address] POCT-GLUCOSE [id number] 05:09:00* Test Item Value Reference Range Interpretation Comments POC-GLUCOSE METER (BEAKER) (test code = 1538) 120 mg/dL 70-110 H TESTED AT [address] [address] HEPATIC FUNCTION [id number] 04:53:00* Test Item Value Reference Range Interpretation [...] 347) 138 U/L 6-55 H Specimen markedly [id number] 04:30:00* Test Item Value Reference Range Interpretation Comments MAGNESIUM (BEAKER) (test code = 627) 2.3 mg/dL 1.6-2.6 BASIC METABOLIC [id number] 04:30:00* Test Item Value Reference Range Interpretation [...] NOT APPLICABLE FOR DIALYSIS PATIENTS. Specimen markedly [id number] 04:14:00* Test Item Value Reference Range Interpretation Comments PARTIAL THROMBOPLASTIN TIME (BEAKER) (test code = 760) 48.2 seconds 22.5-36.0 H PROTHROMBIN [id number] 04:13:00* Test Item Value Reference Range Interpretation [...] pat ients with mechanical heart valves.LACTIC ACID, [id number] 04:08:00* Test Item Value Reference Range Interpretation Comments LACTATE BLOOD ARTERIAL (2) (BEAKER) (test code = 2874) 0.9 mmol/L 0.5-2.2 Specimen markedly ictericBLOOD GAS, [id number] 03:51:00* Test Item Value Reference Range Interpretation [...] (test code = 1819) 40.0 % CALCIUM, [id number] 03:49:00* Test Item Value Reference Range Interpretation Comments CALCIUM IONIZED (BEAKER) (test code = 698) 1.13 mmol/L 1.12-1.27 PH, BLOOD (BEAKER) (test code = 1810) 7.52 Check serum Ionized Calcium level after 4 hours after IV Calcium replacement. POCT-GLUCOSE [id number] 02:50:00* Test Item Value Reference Range Interpretation Comments POC-GLUCOSE METER (BEAKER) (test code = 1538) 132 mg/dL 70-110 H TESTED AT [facility] [address] [facility] [address] POCT-GLUCOSE [id number] 01:18:00* Test Item Value Reference Range Interpretation Comments POC-GLUCOSE METER (BEAKER) (test code = 1538) 137 mg/dL 70-110 H TESTED AT [facility] [address] [facility] [address] POCT-GLUCOSE [id number] 00:07:00* Test Item Value Reference Range Interpretation Comments POC-GLUCOSE METER (BEAKER) (test code = 1538) 131 mg/dL 70-110 H TESTED AT [facility] [address] [facility] [address] BLOOD GAS, [id number] 22:54:00* Test Item Value Reference Range Interpretation [...] (test code = 1819) 40.0 % POCT-GLUCOSE [id number] 22:51:00* Test Item Value Reference Range Interpretation Comments POC-GLUCOSE METER (BEAKER) (test code = 1538) 167 mg/dL 70-110 H TESTED AT [place] [id number] [facility] [address] [id number] 22:08:00* Test Item Value Reference Range Interpretation Comments POTASSIUM (BEAKER) (test code = 379) 3.9 meq/L 3.5-5.1 PRN - repeat potassium levels every 1 hour until glucose level is less than 450 mg/[id number] 22:08:00* Test Item Value Reference Range Interpretation Comments MAGNESIUM (BEAKER) (test code = 627) 2.3 mg/dL 1.6-2.6 PRN - repeat potassium levels every 1 hour until glucose level is less than 450 mg/dLPOCT-GLUCOSE [id number] 22:00:00* Test Item Value Reference Range Interpretation Comments POC-GLUCOSE METER (BEAKER) (test code = 1538) 126 mg/dL 70-110 H TESTED AT [place] [id number] [facility] [address] HEMOGLOBIN AND [id number] 21:56:00* Test Item Value Reference Range Interpretation Comments HEMOGLOBIN (BEAKER) (test code = 410) 8.4 GM/DL 13.7-17.5 L HEMATOCRIT (BEAKER) (test code = 411) 26.0 % 40.1-51.0 L CALCIUM, [id number] 21:53:00* Test Item Value Reference Range Interpretation Comments CALCIUM IONIZED (BEAKER) (test code = 698) 1.10 mmol/L 1.12-1.27 L PH, BLOOD (BEAKER) (test code = 1810) 7.50 Check serum Ionized Calcium level after 4 hours after IV Calcium replacement. POCT-GLUCOSE [id number] 20:41:00* Test Item Value Reference Range Interpretation Comments POC-GLUCOSE METER (BEAKER) (test code = 1538) 90 mg/dL 70-110 TESTED AT [address] [address] BLOOD GAS, [id number] 18:42:00* Test Item Value Reference Range Interpretation [...] (test code = 1819) 50.0 % POCT-GLUCOSE [id number] 17:49:00* Test Item Value Reference Range Interpretation Comments POC-GLUCOSE METER (BEAKER) (test code = 1538) 125 mg/dL 70-110 H TESTED AT [address] [address] BASIC METABOLIC [id number] 17:46:00* Test Item Value Reference Range Interpretation [...] FOR DIALYSIS PATIENTS. Specimen markedly ictericBLOOD GAS, [id number] 17:35:00* Test Item Value Reference Range Interpretation [...] (test code = 1819) 50.0 % POCT-GLUCOSE [id number] 15:27:00* Test Item Value Reference Range Interpretation Comments POC-GLUCOSE METER (BEAKER) (test code = 1538) 138 mg/dL 70-110 H TESTED AT [facility] [address] [facility] [address] [id number] 13:59:00* Test Item Value Reference Range Interpretation Comments MAGNESIUM (BEAKER) (test code = 627) 2.1 mg/dL 1.6-2.6 BASIC METABOLIC [id number] 13:59:00* Test Item Value Reference Range Interpretation [...] FOR DIALYSIS PATIENTS. Specimen markedly ictericBLOOD GAS, [id number] 13:40:00* Test Item Value Reference Range Interpretation [...] code = 1819) 50.0 % HEMOGLOBIN AND [id number] 13:40:00* Test Item Value Reference Range Interpretation Comments HEMOGLOBIN (BEAKER) (test code = 410) 7.4 GM/DL 13.7-17.5 L HEMATOCRIT (BEAKER) (test code = 411) 23.5 % 40.1-51.0 L Please collect after PRBCs doneRAD, CHEST, 1 VIEW, NON [id number] 11:32:00 Reason for exam:->Pulmonary edema evaluationShould this [...] MDReport Verified Date/Time: 06/15/2018 11:32:52 Reading Location: [address] Consult Reading Room -GLUCOSE [id number] 10:50:00* Test Item Value Reference Range Interpretation Comments POC-GLUCOSE METER (BEAKER) (test code = 1538) 107 mg/dL 70-110 TESTED AT [facility] [address] [place] [address] CBC W/PLT COUNT & AUTO [id number] 09:04:00* Test Item Value Reference Range Interpretation [...] quate Received comment: User comments: Slide comments: [id number] 08:43:00* Test Item Value Reference Range Interpretation Comments POTASSIUM (BEAKER) (test code = 379) 3.9 meq/L 3.5-5.1 PRN - repeat glucose levels every 1 hour or as specified by insulin titration or ders until glucose level is less than 450 mg/dLCheck Serum Potassium level 2 roxy rs after oral potassium replacement completed or 30 min after intravenous potass ium replacement.[id number] 08:43:00* Test Item Value Reference Range Interpretation Comments GLUCOSE RANDOM (BEAKER) (test code = 652) 123 mg/dL 70-105 H PRN - repeat glucose levels every 1 hour or as specified by insulin titration or ders until glucose level is less than 450 mg/dLCheck Serum Potassium level 2 roxy rs after oral potassium replacement completed or 30 min after intravenous potass ium replacement.HEMOGLOBIN AND [id number] 07:05:00* Test Item Value Reference Range Interpretation Comments HEMOGLOBIN (BEAKER) (test code = 410) 6.6 GM/DL 13.7-17.5 L HEMATOCRIT (BEAKER) (test code = 411) 21.3 % 40.1-51.0 L POCT-GLUCOSE [id number] 06:52:00* Test Item Value Reference Range Interpretation Comments POC-GLUCOSE METER (BEAKER) (test code = 1538) 117 mg/dL 70-110 H TESTED AT [facility] [address] [facility] [address] CALCIUM, [id number] 04:47:00* Test Item Value Reference Range Interpretation Comments CALCIUM IONIZED (BEAKER) (test code = 698) 1.10 mmol/L 1.12-1.27 L PH, BLOOD (BEAKER) (test code = 1810) 7.48 Check serum Ionized Calcium level after 4 hours after IV Calcium replacement. BLOOD GAS, [id number] 04:47:00* Test Item Value Reference Range Interpretation [...] code = 1819) 50.0 % BASIC METABOLIC [id number] 04:27:00* Test Item Value Reference Range Interpretation [...] NOT APPLICABLE FOR DIALYSIS PATIENTS. Specimen markedly [id number] 04:15:00* Test Item Value Reference Range Interpretation Comments MAGNESIUM (BEAKER) (test code = 627) 2.4 mg/dL 1.6-2.6 HEPATIC FUNCTION [id number] 04:15:00* Test Item Value Reference Range Interpretation [...] 134 U/L 6-55 H Specimen markedly ictericPOCT-GLUCOSE [id number] 04:02:00* Test Item Value Reference Range Interpretation Comments POC-GLUCOSE METER (GAURAVAKER) (test code = 1538) 107 mg/dL 70-110 TESTED AT [address] [address] [id number] 03:59:00* Test Item Value Reference Range Interpretation Comments PARTIAL THROMBOPLASTIN TIME (BEAKER) (test code = 760) 54.6 seconds 22.5-36.0 H PROTHROMBIN [id number] 03:58:00* Test Item Value Reference Range Interpretation [...] pat ients with mechanical heart valves.LACTIC ACID, [id number] 03:56:00* Test Item Value Reference Range Interpretation Comments LACTATE BLOOD ARTERIAL (2) (BEAKER) (test code = 2874) 1.1 mmol/L 0.5-2.2 Specimen markedly ictericPOCT-GLUCOSE [id number] 03:10:00* Test Item Value Reference Range Interpretation Comments POC-GLUCOSE METER (GAURAVAKER) (test code = 1538) 118 mg/dL 70-110 H TESTED AT [address] [address] POCT-GLUCOSE [id number] 02:11:00* Test Item Value Reference Range Interpretation Comments POC-GLUCOSE METER (BEAKER) (test code = 1538) 112 mg/dL 70-110 H TESTED AT [address] [address] POCT-GLUCOSE [id number] 01:28:00* Test Item Value Reference Range Interpretation Comments POC-GLUCOSE METER (BEAKER) (test code = 1538) 126 mg/dL 70-110 H TESTED AT [address] [address] BASIC METABOLIC [id number] 00:27:00* Test Item Value Reference Range Interpretation [...] APPLICABLE FOR DIALYSIS PATIENTS. Specimen markedly ictericPOCT-GLUCOSE [id number] 00:22:00* Test Item Value Reference Range Interpretation Comments POC-GLUCOSE METER (BEAKER) (test code = 1538) 155 mg/dL 70-110 H TESTED AT [address] [address] POCT-GLUCOSE [id number] 23:18:00* Test Item Value Reference Range Interpretation Comments POC-GLUCOSE METER (BEAKER) (test code = 1538) 168 mg/dL 70-110 H TESTED AT [address] [address] POCT-GLUCOSE [id number] 22:13:00* Test Item Value Reference Range Interpretation Comments POC-GLUCOSE METER (BEAKER) (test code = 1538) 171 mg/dL 70-110 H TESTED AT [address] [address] [id number] 21:19:00* Test Item Value Reference Range Interpretation Comments MAGNESIUM (BEAKER) (test code = 627) 2.5 mg/dL 1.6-2.6 POCT-GLUCOSE [id number] 21:14:00* Test Item Value Reference Range Interpretation Comments POC-GLUCOSE METER (BEAKER) (test code = 1538) 166 mg/dL 70-110 H TESTED AT [address] [address] CALCIUM, [id number] 21:03:00* Test Item Value Reference Range Interpretation Comments CALCIUM IONIZED (BEAKER) (test code = 698) 1.07 mmol/L 1.12-1.27 L PH, BLOOD (BEAKER) (test code = 1810) 7.52 Check serum Ionized Calcium level after 4 hours after IV Calcium replacement. POCT-GLUCOSE [id number] 20:12:00* Test Item Value Reference Range Interpretation Comments POC-GLUCOSE METER (BEAKER) (test code = 1538) 172 mg/dL 70-110 H TESTED AT [place] [id number] [facility] [address] POCT-GLUCOSE [id number] 18:57:00* Test Item Value Reference Range Interpretation Comments POC-GLUCOSE METER (BEAKER) (test code = 1538) 158 mg/dL 70-110 H TESTED AT [address] [address] POCT-GLUCOSE [id number] 18:57:00* Test Item Value Reference Range Interpretation Comments POC-GLUCOSE METER (BEAKER) (test code = 1538) 172 mg/dL 70-110 H TESTED AT [address] [address] POCT-GLUCOSE [id number] 18:57:00* Test Item Value Reference Range Interpretation Comments POC-GLUCOSE METER (BEAKER) (test code = 1538) 139 mg/dL 70-110 H TESTED AT [place] [id number] [facility] [address] POCT-GLUCOSE [id number] 18:57:00* Test Item Value Reference Range Interpretation Comments POC-GLUCOSE METER (BEAKER) (test code = 1538) 98 mg/dL 70-110 TESTED AT [facility] [address] [facility] [address] BASIC METABOLIC [id number] 18:53:00* Test Item Value Reference Range Interpretation [...] FOR DIALYSIS PATIENTS. Specimen markedly ictericEBV VIRAL [id number] 17:58:00* Test Item Value Reference Range Interpretation [...] (2) real-time PCR amplification and detection with [id number] ic primers and probes. A well-conserved region [...] its performance characteristic s determined by the [facility] Pathology Department, Section of varinder Pathology. It has not been cleared or approved by the U.S. Food and Zcah g Administration (FDA), since FDA approval is not required for clinical use of t he test. Validation was done as required by The Clinical Laboratory Improvement Amendments of 1988.POCT-GLUCOSE [id number] 14:21:00* Test Item Value Reference Range Interpretation Comments POC-GLUCOSE METER (BEAKER) (test code = 1538) 102 mg/dL 70-110 TESTED AT [facility] [address] [facility] [address] POCT-GLUCOSE [id number] 12:29:00* Test Item Value Reference Range Interpretation Comments POC-GLUCOSE METER (BEAKER) (test code = 1538) 101 mg/dL 70-110 TESTED AT [facility] [address] [facility] [address] BASIC METABOLIC [id number] 11:58:00* Test Item Value Reference Range Interpretation [...] NOT APPLICABLE FOR DIALYSIS PATIENTS. Specimen markedly [id number] 11:55:00* Test Item Value Reference Range Interpretation Comments MAGNESIUM (BEAKER) (test code = 627) 2.8 mg/dL 1.6-2.6 H POCT-GLUCOSE [id number] 11:53:00* Test Item Value Reference Range Interpretation Comments POC-GLUCOSE METER (BEAKER) (test code = 1538) 134 mg/dL 70-110 H TESTED AT [facility] [address] [facility] [address] POCT-GLUCOSE [id number] 11:53:00* Test Item Value Reference Range Interpretation Comments POC-GLUCOSE METER (BEAKER) (test code = 1538) 134 mg/dL 70-110 H TESTED AT [facility] [address] [facility] [address] POCT-GLUCOSE [id number] 11:53:00* Test Item Value Reference Range Interpretation Comments POC-GLUCOSE METER (BEAKER) (test code = 1538) 161 mg/dL 70-110 H TESTED AT [facility] [address] [facility] [address] BLOOD GAS, [id number] 11:41:00* Test Item Value Reference Range Interpretation [...] 50.0 % CBC W/PLT COUNT & AUTO [id number] 10:02:00* Test Item Value Reference Range Interpretation [...] Received comment: User comments: Slide comments: POCT-GLUCOSE [id number] 09:09:00* Test Item Value Reference Range Interpretation Comments POC-GLUCOSE METER (BEAKER) (test code = 1538) 159 mg/dL 70-110 H TESTED AT [facility] [address] [facility] [address] POCT-GLUCOSE [id number] 08:09:00* Test Item Value Reference Range Interpretation Comments POC-GLUCOSE METER (BEAKER) (test code = 1538) 178 mg/dL 70-110 H TESTED AT [facility] [address] [facility] [address] RAD, CHEST, 1 VIEW, NON [id number] 07:32:00Reason for exam:->respiratory insufficiencyShould this be performed [...] sfactorily positioned and unchanged. Impression:No change Signed: Round, Ma ry MDReport Verified Date/Time: 06/14/2018 07:32:08 Reading Location: [facility] Radiology Reading Room [id number] 06:43:00* Test Item Value Reference Range Interpretation Comments PARTIAL THROMBOPLASTIN TIME (BEAKER) (test code = 760) 45.8 seconds 22.5-36.0 H PROTHROMBIN [id number] 06:42:00* Test Item Value Reference Range Interpretation [...] pat ients with mechanical heart valves.BASIC METABOLIC [id number] 06:41:00* Test Item Value Reference Range Interpretation [...] APPLICABLE FOR DIALYSIS PATIENTS. Specimen markedly ictericPOCT-GLUCOSE [id number] 06:32:00* Test Item Value Reference Range Interpretation Comments POC-GLUCOSE METER (BEAKER) (test code = 1538) 175 mg/dL 70-110 H TESTED AT [facility] [address] [facility] [address] POCT-GLUCOSE [id number] 05:43:00* Test Item Value Reference Range Interpretation Comments POC-GLUCOSE METER (BEAKER) (test code = 1538) 149 mg/dL 70-110 H TESTED AT [facility] [address] [facility] [address] POCT-GLUCOSE [id number] 05:43:00* Test Item Value Reference Range Interpretation Comments POC-GLUCOSE METER (BEAKER) (test code = 1538) 140 mg/dL 70-110 H TESTED AT [place] [id number] [facility] [address] BASIC METABOLIC [id number] 04:55:00* Test Item Value Reference Range Interpretation [...] FOR DIALYSIS PATIENTS. Specimen markedly ictericBLOOD GAS, [id number] 04:37:00* Test Item Value Reference Range Interpretation [...] code = 1819) 60.0 % BASIC METABOLIC [id number] 04:35:00* Test Item Value Reference Range Interpretation [...] NOT APPLICABLE FOR DIALYSIS PATIENTS. Specimen markedly [id number] 04:25:00* Test Item Value Reference Range Interpretation Comments MAGNESIUM (BEAKER) (test code = 627) 2.4 mg/dL 1.6-2.6 HEPATIC FUNCTION [id number] 04:25:00* Test Item Value Reference Range Interpretation [...] 347) 119 U/L 6-55 H Specimen markedly [id number] 04:25:00* Test Item Value Reference Range Interpretation Comments AMYLASE (BEAKER) (test code = 349) 80 U/L 25-125 Specimen markedly [id number] 04:25:00* Test Item Value Reference Range Interpretation Comments LIPASE (BEAKER) (test code = 749) 222 U/L 8-78 H Specimen markedly ictericLACTIC ACID, [id number] 04:17:00* Test Item Value Reference Range Interpretation Comments LACTATE BLOOD ARTERIAL (2) (BEAKER) (test code = 2874) 0.8 mmol/L 0.5-2.2 Specimen markedly ictericPOCT-GLUCOSE [id number] 02:31:00* Test Item Value Reference Range Interpretation Comments POC-GLUCOSE METER (BEAKER) (test code = 1538) 98 mg/dL 70-110 TESTED AT [facility] [address] [facility] [address] POCT-GLUCOSE [id number] 01:45:00* Test Item Value Reference Range Interpretation Comments POC-GLUCOSE METER (BEAKER) (test code = 1538) 120 mg/dL 70-110 H TESTED AT [facility] [address] [facility] [address] POCT-GLUCOSE [id number] 01:45:00* Test Item Value Reference Range Interpretation Comments POC-GLUCOSE METER (BEAKER) (test code = 1538) 171 mg/dL 70-110 H TESTED AT [place] [id number] [facility] [address] CT, CHEST, WITHOUT [id number] 00:56:00FINAL REPORT EXAM: CT of the chest, [...] Ceballoseport Verified Date/Time: 06/14/2018 00:56:49 Reading Location: [facility] B1 C013Y [address] Body Reading Room Amada ctronically signed by: NICOLÁS CEBALLOS MD on 06/14/2018 12:[address], [id number] 00:56:00With PO contrastFINAL REPORT EXAM: CT of [...] MDReport Verified Date/Time: 06/14/2018 00:56:49 Reading Location: [facility] C013Y CT Body Reading Room Amada ctronically signed by: NICOLÁS CEBALLOS MD on 06/14/2018 12:56 AM POCT- GLUCOSE [id number] 23:12:00* Test Item Value Reference Range Interpretation Comments POC-GLUCOSE METER (BEAKER) (test code = 1538) 200 mg/dL 70-110 H TESTED AT [facility] [address] [facility] [address] POCT-GLUCOSE [id number] 23:12:00* Test Item Value Reference Range Interpretation Comments POC-GLUCOSE METER (BEAKER) (test code = 1538) 132 mg/dL 70-110 H TESTED AT [facility] [address] [facility] [address] [id number] 21:11:00* Test Item Value Reference Range Interpretation Comments MAGNESIUM (BEAKER) (test code = 627) 2.5 mg/dL 1.6-2.6 POCT-GLUCOSE [id number] 20:48:00* Test Item Value Reference Range Interpretation Comments POC-GLUCOSE METER (BEAKER) (test code = 1538) 103 mg/dL 70-110 TESTED AT [place] [id number] [facility] [address] POCT-GLUCOSE [id number] 20:48:00* Test Item Value Reference Range Interpretation Comments POC-GLUCOSE METER (BEAKER) (test code = 1538) 98 mg/dL 70-110 TESTED AT [place] [address] [facility] [address] POCT-GLUCOSE [id number] 18:14:00* Test Item Value Reference Range Interpretation Comments POC-GLUCOSE METER (BEAKER) (test code = 1538) 108 mg/dL 70-110 TESTED AT [facility] [address] [facility] [address] BASIC METABOLIC [id number] 18:09:00* Test Item Value Reference Range Interpretation [...] FOR DIALYSIS PATIENTS. Specimen markedly ictericBLOOD GAS, [id number] 16:57:00* Test Item Value Reference Range Interpretation [...] (test code = 1819) 40.0 % POCT-GLUCOSE [id number] 16:51:00* Test Item Value Reference Range Interpretation Comments POC-GLUCOSE METER (BEAKER) (test code = 1538) 107 mg/dL 70-110 TESTED AT [facility] [address] [facility] [address] CMV PCR, [id number] 16:28:00* Test Item Value Reference Range Interpretation [...] its performance characteristics determined by charlene greenwood [facility] Pathology Department, Section of Molecular Patholog y. It has not been cleared or approved by the U.S. Food and Drug Administration (FDA), since FDA approval is not required for clinical use of the test. Validati on was done as required by The Clinical Laboratory Improvement Amendments of 198 8.POCT-GLUCOSE [id number] 15:09:00* Test Item Value Reference Range Interpretation Comments POC-GLUCOSE METER (BEAKER) (test code = 1538) 119 mg/dL 70-110 H TESTED AT [facility] [address] [facility] [address] POCT-GLUCOSE [id number] 14:43:00* Test Item Value Reference Range Interpretation Comments POC-GLUCOSE METER (BEAKER) (test code = 1538) 129 mg/dL 70-110 H TESTED AT [address] [address] BASIC METABOLIC [id number] 13:25:00* Test Item Value Reference Range Interpretation [...] APPLICABLE FOR DIALYSIS PATIENTS. Specimen markedly ictericPOCT-GLUCOSE [id number] 13:23:00* Test Item Value Reference Range Interpretation Comments POC-GLUCOSE METER (BEAKER) (test code = 1538) 172 mg/dL 70-110 H TESTED AT [address] [address] [id number] 13:14:00* Test Item Value Reference Range Interpretation Comments MAGNESIUM (BEAKER) (test code = 627) 2.6 mg/dL 1.6-2.6 Specimen slightly hemolyzed POCT-GLUCOSE [id number] 12:04:00* Test Item Value Reference Range Interpretation Comments POC-GLUCOSE METER (BEAKER) (test code = 1538) 205 mg/dL 70-110 H TESTED AT [place] [id number] [facility] [address] POCT-GLUCOSE [id number] 11:10:00* Test Item Value Reference Range Interpretation Comments POC-GLUCOSE METER (BEAKER) (test code = 1538) 182 mg/dL 70-110 H TESTED AT [address] [address] BLOOD GAS, [id number] 10:41:00* Test Item Value Reference Range Interpretation [...] (test code = 1819) 100.0 % POCT-GLUCOSE [id number] 09:50:00* Test Item Value Reference Range Interpretation Comments POC-GLUCOSE METER (BEAKER) (test code = 1538) 138 mg/dL 70-110 H TESTED AT [address] [address] POCT-GLUCOSE [id number] 08:44:00* Test Item Value Reference Range Interpretation Comments POC-GLUCOSE METER (BEAKER) (test code = 1538) 98 mg/dL 70-110 TESTED AT [address] [address] BLOOD GAS, [id number] 06:47:00* Test Item Value Reference Range Interpretation [...] (test code = 1819) 80.0 % POCT-GLUCOSE [id number] 06:41:00* Test Item Value Reference Range Interpretation Comments POC-GLUCOSE METER (BEAKER) (test code = 1538) 123 mg/dL 70-110 H TESTED AT [facility] [address] [facility] [address] POCT-GLUCOSE [id number] 06:41:00* Test Item Value Reference Range Interpretation Comments POC-GLUCOSE METER (BEAKER) (test code = 1538) 121 mg/dL 70-110 H TESTED AT [facility] [address] [facility] [address] BASIC METABOLIC [id number] 06:25:00* Test Item Value Reference Range Interpretation [...] FOR DIALYSIS PATIENTS. Specimen markedly ictericBASIC METABOLIC [id number] 03:47:00* Test Item Value Reference Range Interpretation [...] NOT APPLICABLE FOR DIALYSIS PATIENTS. Specimen markedly [id number] 03:41:00* Test Item Value Reference Range Interpretation Comments MAGNESIUM (BEAKER) (test code = 627) 2.7 mg/dL 1.6-2.6 H HEPATIC FUNCTION [id number] 03:41:00* Test Item Value Reference Range Interpretation [...] 347) 104 U/L 6-55 H Specimen markedly [id number] 03:39:00* Test Item Value Reference Range Interpretation Comments PARTIAL THROMBOPLASTIN TIME (BEAKER) (test code = 760) 48.3 seconds 22.5-36.0 H PROTHROMBIN [id number] 03:38:00* Test Item Value Reference Range Interpretation [...] pat ients with mechanical heart valves.LACTIC ACID, [id number] 03:31:00* Test Item Value Reference Range Interpretation Comments LACTATE BLOOD ARTERIAL (2) (BEAKER) (test code = 2874) 0.8 mmol/L 0.5-2.2 Specimen markedly ictericCBC W/PLT COUNT & AUTO [id number] 03:24:00 * Test Item Value Reference Range [...] = 2801) 3 % 0-1 H POCT-GLUCOSE [id number] 03:06:00* Test Item Value Reference Range Interpretation Comments POC-GLUCOSE METER (BEAKER) (test code = 1538) 155 mg/dL 70-110 H TESTED AT [facility] [address] [facility] [address] BASIC METABOLIC [id number] 02:44:00* Test Item Value Reference Range Interpretation [...] FOR DIALYSIS PATIENTS. Specimen markedly ictericBLOOD GAS, [id number] 02:08:00* Test Item Value Reference Range Interpretation [...] 100.0 % RAD, CHEST, 1 VIEW, NON [id number] 01:40:00Reason for exam:->decreased lung sounds; possible aspirationShould this be performed at the bedside?->YesFINAL REPORT CLINICAL INDICATION: Decreased lung sounds, concern for aspiration Comparison: 06/12/2018 The cardiomediastinal contours are stable. The lung volumes remain low. Central pulmonary vascular congestion and bilateral parenchymal opacities are unchanged. There is no pneumothorax. Support lines are stable. Signed: Katherine Reich MDReport Verified Date/Time: 06/14/19 01:40:10 Reading Location: [address] Reading Room [facility] signed by: KATHERINE REICH M.D. on 06/13/2018 01:40 AM RAD, ABDOMEN/KUB, 1 VIEW [id number] 01:37:00Reason for exam:->distended abdomenShould this be performed [...] MDReport Verified Date/Time: 06/13/2018 01:37:29 Reading Location: [address] Reading Room -GLUCOSE [id number] 00:36:00* Test Item Value Reference Range Interpretation Comments POC-GLUCOSE METER (BEAKER) (test code = 1538) 192 mg/dL 70-110 H TESTED AT [facility] [address] [facility] [address] OCCULT BLOOD, [id number] 22:31:00* Test Item Value Reference Range Interpretation Comments FECAL OCCULT BLOOD (BEAKER) (test code = 618) Positive Negative A [id number] 21:12:00* Test Item Value Reference Range Interpretation Comments MAGNESIUM (BEAKER) (test code = 627) 2.4 mg/dL 1.6-2.6 POCT-GLUCOSE [id number] 20:34:00* Test Item Value Reference Range Interpretation Comments POC-GLUCOSE METER (BEAKER) (test code = 1538) 160 mg/dL 70-110 H TESTED AT [place] [id number] [facility] [address] BASIC METABOLIC [id number] 18:27:00* Test Item Value Reference Range Interpretation [...] APPLICABLE FOR DIALYSIS PATIENTS. Specimen markedly ictericPOCT-GLUCOSE [id number] 17:35:00* Test Item Value Reference Range Interpretation Comments POC-GLUCOSE METER (BEAKER) (test code = 1538) 136 mg/dL 70-110 H TESTED AT [address] [address] BLOOD GAS, [id number] 16:12:00* Test Item Value Reference Range Interpretation [...] (test code = 1819) 40.0 % POCT-GLUCOSE [id number] 14:51:00* Test Item Value Reference Range Interpretation Comments POC-GLUCOSE METER (BEAKER) (test code = 1538) 137 mg/dL 70-110 H TESTED AT [address] [address] POCT-GLUCOSE [id number] 13:23:00* Test Item Value Reference Range Interpretation Comments POC-GLUCOSE METER (BEAKER) (test code = 1538) 132 mg/dL 70-110 H TESTED AT [address] [address] BLOOD GAS, [id number] 13:13:00* Test Item Value Reference Range Interpretation [...] code = 1819) 40.0 % BASIC METABOLIC [id number] 13:08:00* Test Item Value Reference Range Interpretation [...] NOT APPLICABLE FOR DIALYSIS PATIENTS. Specimen markedly [id number] 13:04:00* Test Item Value Reference Range Interpretation Comments MAGNESIUM (BEAKER) (test code = 627) 2.6 mg/dL 1.6-2.6 POCT-GLUCOSE [id number] 12:17:00* Test Item Value Reference Range Interpretation Comments POC-GLUCOSE METER (BEAKER) (test code = 1538) 123 mg/dL 70-110 H TESTED AT [facility] [address] [facility] [address] POCT-GLUCOSE [id number] 11:33:00* Test Item Value Reference Range Interpretation Comments POC-GLUCOSE METER (BEAKER) (test code = 1538) 133 mg/dL 70-110 H TESTED AT [place] [address] [facility] [address] POCT-GLUCOSE [id number] 10:10:00* Test Item Value Reference Range Interpretation Comments POC-GLUCOSE METER (BEAKER) (test code = 1538) 151 mg/dL 70-110 H TESTED AT [address] [address] POCT-GLUCOSE [id number] 09:07:00* Test Item Value Reference Range Interpretation Comments POC-GLUCOSE METER (BEAKER) (test code = 1538) 155 mg/dL 70-110 H TESTED AT [address] [address] POCT-GLUCOSE [id number] 08:05:00* Test Item Value Reference Range Interpretation Comments POC-GLUCOSE METER (BEAKER) (test code = 1538) 143 mg/dL 70-110 H TESTED AT [address] [address] CBC W/PLT COUNT & AUTO [id number] 07:31:00* Test Item Value Reference Range Interpretation [...] LATION PRESENT RAD, CHEST, 1 VIEW, NON [id number] 06:50:00Reason for exam:-> respiratory insufficiencyShould this be [...] MDReport Verified Date/Time: 06/12/2018 06:50:17 Reading Location: [address] Neuro Reading Room Electronically signed by: MD rafaela MO 06/12/2018 06:50 AM POCT-GLUCOSE [id number] 06:23:00* Test Item Value Reference Range Interpretation Comments POC-GLUCOSE METER (BEAKER) (test code = 1538) 161 mg/dL 70-110 H TESTED AT [address] [address] POCT-GLUCOSE [id number] 05:09:00* Test Item Value Reference Range Interpretation Comments POC-GLUCOSE METER (BEAKER) (test code = 1538) 177 mg/dL 70-110 H TESTED AT [place] [id number] [facility] [address] POCT-GLUCOSE [id number] 05:09:00* Test Item Value Reference Range Interpretation Comments POC-GLUCOSE METER (BEAKER) (test code = 1538) 188 mg/dL 70-110 H TESTED AT [address] [address] BLOOD GAS, [id number] 04:41:00* Test Item Value Reference Range Interpretation [...] (test code = 1819) 50.0 % CALCIUM, [id number] 04:41:00* Test Item Value Reference Range Interpretation Comments CALCIUM IONIZED (BEAKER) (test code = 698) 1.08 mmol/L 1.12-1.27 L PH, BLOOD (BEAKER) (test code = 1810) 7.44 BASIC METABOLIC [id number] 04:24:00* Test Item Value Reference Range Interpretation [...] NOT APPLICABLE FOR DIALYSIS PATIENTS. Specimen markedly [id number] 04:23:00* Test Item Value Reference Range Interpretation Comments PHOSPHORUS (BEAKER) (test code = 604) 5.0 mg/dL 2.3-4.7 H [id number] 04:23:00* Test Item Value Reference Range Interpretation Comments MAGNESIUM (BEAKER) (test code = 627) 2.8 mg/dL 1.6-2.6 H HEPATIC FUNCTION [id number] 04:23:00* Test Item Value Reference Range Interpretation [...] 347) 96 U/L 6-55 H Specimen markedly [id number] 04:22:00* Test Item Value Reference Range Interpretation Comments PARTIAL THROMBOPLASTIN TIME (BEAKER) (test code = 760) 54.7 seconds 22.5-36.0 H PROTHROMBIN [id number] 04:21:00* Test Item Value Reference Range Interpretation [...] pat ients with mechanical heart valves.LACTIC ACID, [id number] 04:15:00* Test Item Value Reference Range Interpretation Comments LACTATE BLOOD ARTERIAL (2) (BEAKER) (test code = 2874) 0.9 mmol/L 0.5-2.2 Specimen slightly hemolyzed Specimen markedly [id number] 02:06:00* Test Item Value Reference Range Interpretation Comments POTASSIUM (BEAKER) (test code = 379) 3.5 meq/L 3.5-5.1 [id number] 02:06:00* Test Item Value Reference Range Interpretation Comments GLUCOSE RANDOM (BEAKER) (test code = 652) 225 mg/dL 70-105 H BASIC METABOLIC [id number] 00:30:00* Test Item Value Reference Range Interpretation [...] APPLICABLE FOR DIALYSIS PATIENTS. Specimen markedly ictericPOCT-GLUCOSE [id number] 00:28:00* Test Item Value Reference Range Interpretation Comments POC-GLUCOSE METER (BEAKER) (test code = 1538) 245 mg/dL 70-110 H TESTED AT [facility] [address] [place] [address] BLOOD GAS, [id number] 22:23:00* Test Item Value Reference Range Interpretation [...] code = 1819) 50.0 % BASIC METABOLIC [id number] 20:15:00* Test Item Value Reference Range Interpretation [...] NOT APPLICABLE FOR DIALYSIS PATIENTS. Specimen markedly [id number] 20:07:00* Test Item Value Reference Range Interpretation Comments MAGNESIUM (BEAKER) (test code = 627) 2.6 mg/dL 1.6-2.6 RAD, CHEST, 1 VIEW, NON [id number] 19:02:00Reason for exam:->new right IJ lineShould this [...] MDReport Verified Date/Time: 06/11/2018 19:02:45 Reading Location: [facility] C013W Consult Reading Room C METABOLIC [id number] 15:15:00* Test Item Value Reference Range Interpretation [...] NOT APPLICABLE FOR DIALYSIS PATIENTS. Specimen markedly [id number] 15:09:00* Test Item Value Reference Range Interpretation Comments MAGNESIUM (BEAKER) (test code = 627) 2.6 mg/dL 1.6-2.6 POCT-GLUCOSE [id number] 13:44:00* Test Item Value Reference Range Interpretation Comments POC-GLUCOSE METER (BEAKER) (test code = 1538) 226 mg/dL 70-110 H TESTED AT [facility] [address] [facility] [address] SPIN/CONCENTRATION [id number] 12:22:00* Test Item Value Reference Range Interpretation Comments CONCENTRATION CHARGED (BEAKER) (test code = 2657) Done RAD, CHEST, 1 VIEW, NON [id number] 07:49:00Reason for exam:->pulmonary edemaShould this be performed [...] Rodriguezeport Verified Date/Time: 06/11 07:49:11 Reading Location: [facility] Radiology Reading Room Amada ctronically signed by: GELA RODRIGUEZ M.D. on 06/11/2018 07:49 AM LACTIC ACID, [id number] 04:44:00* Test Item Value Reference Range Interpretation Comments LACTATE BLOOD ARTERIAL (2) (BEAKER) (test code = 2874) 0.9 mmol/L 0.5-2.2 Specimen markedly ictericBASIC METABOLIC [id number] 04:39:00* Test Item Value Reference Range Interpretation [...] NOT APPLICABLE FOR DIALYSIS PATIENTS. Specimen markedly [id number] 04:38:00* Test Item Value Reference Range Interpretation Comments PHOSPHORUS (BEAKER) (test code = 604) 6.5 mg/dL 2.3-4.7 H [id number] 04:38:00* Test Item Value Reference Range Interpretation Comments MAGNESIUM (BEAKER) (test code = 627) 2.7 mg/dL 1.6-2.6 H HEPATIC FUNCTION [id number] 04:38:00* Test Item Value Reference Range Interpretation [...] code = 380) 116 U/L 29-20 0 [id number] 04:33:00* Test Item Value Reference Range Interpretation Comments PARTIAL THROMBOPLASTIN TIME (BEAKER) (test code = 760) 50.5 seconds 22.5-36.0 H PROTHROMBIN [id number] 04:32:00* Test Item Value Reference Range Interpretation [...] mechanical heart valves.CBC W/PLT COUNT & AUTO [id number] 04:29:00* Test Item Value Reference Range Interpretation [...] = 2801) 5 % 0-1 H CALCIUM, [id number] 04:29:00* Test Item Value Reference Range Interpretation Comments CALCIUM IONIZED (BEAKER) (test code = 698) 1.05 mmol/L 1.12-1.27 L PH, BLOOD (BEAKER) (test code = 1810) 7.42 BLOOD GAS, [id number] 04:25:00* Test Item Value Reference Range Interpretation [...] code = 1819) 60.0 % BASIC METABOLIC [id number] 22:15:00* Test Item Value Reference Range Interpretation [...] GFR IS NOT APPLICABLE FOR DIALYSIS PATIENTS. [id number] 21:07:00* Test Item Value Reference Range Interpretation Comments MAGNESIUM (BEAKER) (test code = 627) 2.8 mg/dL 1.6-2.6 H Specimen slightly hemolyzed BASIC METABOLIC [id number] 18:32:00* Test Item Value Reference Range Interpretation [...] FOR DIALYSIS PATIENTS. Specimen markedly ictericBASIC METABOLIC [id number] 12:06:00* Test Item Value Reference Range Interpretation [...] NOT APPLICABLE FOR DIALYSIS PATIENTS. Specimen markedly [id number] 11:59:00* Test Item Value Reference Range Interpretation Comments MAGNESIUM (BEAKER) (test code = 627) 2.4 mg/dL 1.6-2.6 POCT-GLUCOSE [id number] 11:58:00* Test Item Value Reference Range Interpretation Comments POC-GLUCOSE METER (BEAKER) (test code = 1538) 143 mg/dL 70-110 H TESTED AT [facility] [address] [facility] [address] BRONCHIAL CULTURE + GRAM [id number] 09:24:00* Test Item Value Reference Range Interpretation Comments CULTURE (BEAKER) (test code = 1095) No growth GRAM STAIN RESULT (BEAKER) (test code = 1123) 1+ WBCs GRAM STAIN RESULT (BEAKER) (test code = 69727) No organisms seen SPUTUM CULTURE + GRAM [id number] 09:24:00* Test Item Value Reference Range Interpretation Comments CULTURE (BEAKER) (test code = 1095) No growth GRAM STAIN RESULT (BEAKER) (test code = 1123) 1+ WBCs GRAM STAIN RESULT (BEAKER) (test code = 67949) 10-15 epithelial dariel ls GRAM STAIN RESULT (BEAKER) (test code = 91640) <1+ gra m positive cocci in pairs and clusters CBC W/PLT COUNT & AUTO [id number] 08:22:00* Test Item Value Reference Range Interpretation [...] PLATELETS SEEN RAD, CHEST, 1 VIEW, NON [id number] 08:07:00Reason for exam:->pulmonary edemaShould this be performed [...] [place] Verified Date/Time: 06/10/2018 08:07:52 Reading Location: [facility] Radiology Reading Room -GLUCOSE [id number] 05:31:00* Test Item Value Reference Range Interpretation Comments POC-GLUCOSE METER (BEAKER) (test code = 1538) 124 mg/dL 70-110 H TESTED AT [facility] [address] [facility] [address] BASIC METABOLIC [id number] 04:24:00* Test Item Value Reference Range Interpretation [...] NOT APPLICABLE FOR DIALYSIS PATIENTS. Specimen markedly [id number] 04:16:00* Test Item Value Reference Range Interpretation Comments PARTIAL THROMBOPLASTIN TIME (BEAKER) (test code = 760) 47.0 seconds 22.5-36.0 H PROTHROMBIN [id number] 04:15:00* Test Item Value Reference Range Interpretation Comments PROTIME (BEAKER) (test code = 759) 16.9 seconds 11.7-14.7 H INR (BEAKER) (test code = 370) 1.3 <=5.9 RECOMMENDED COUMADIN/WARFARIN INR THERAPY RANGESSTANDARD DOSE: 2.0 - 3.0 Inclu herb: PROPHYLAXIS for venous thrombosis, systemic embolization; TREATMENT for giulia ous thrombosis and/or pulmonary embolus.HIGH RISK: Target INR is 2.5-3.5 for pat ients with mechanical heart valves.[id number] 04:12:00* Test Item Value Reference Range Interpretation Comments MAGNESIUM (BEAKER) (test code = 627) 2.5 mg/dL 1.6-2.6 HEPATIC FUNCTION [id number] 04:12:00* Test Item Value Reference Range Interpretation [...] U/L 6-55 H Specimen markedly ictericLACTIC ACID, [id number] 03:59:00* Test Item Value Reference Range Interpretation Comments LACTATE BLOOD ARTERIAL (2) (BEAKER) (test code = 2874) 0.9 mmol/L 0.5-2.2 Specimen markedly ictericBLOOD GAS, [id number] 03:21:00* Test Item Value Reference Range Interpretation [...] (test code = 1819) 60.0 % CALCIUM, [id number] 03:19:00* Test Item Value Reference Range Interpretation Comments CALCIUM IONIZED (BEAKER) (test code = 698) 1.12 mmol/L 1.12-1.27 PH, BLOOD (BEAKER) (test code = 1810) 7.44 Check serum Ionized Calcium level after 4 hours after IV Calcium replacement. BASIC METABOLIC [id number] 00:53:00* Test Item Value Reference Range Interpretation [...] APPLICABLE FOR DIALYSIS PATIENTS. Specimen markedly ictericPOCT-GLUCOSE [id number] 00:29:00* Test Item Value Reference Range Interpretation Comments POC-GLUCOSE METER (BEAKER) (test code = 1538) 176 mg/dL 70-110 H TESTED AT [facility] [address] [facility] [address] POCT-GLUCOSE [id number] 21:27:00* Test Item Value Reference Range Interpretation Comments POC-GLUCOSE METER (BEAKER) (test code = 1538) 134 mg/dL 70-110 H TESTED AT [facility] [address] [facility] [address] [id number] 20:56:00* Test Item Value Reference Range Interpretation Comments MAGNESIUM (BEAKER) (test code = 627) 2.2 mg/dL 1.6-2.6 CALCIUM, [id number] 20:46:00* Test Item Value Reference Range Interpretation Comments CALCIUM IONIZED (BEAKER) (test code = 698) 1.08 mmol/L 1.12-1.27 L PH, BLOOD (BEAKER) (test code = 1810) 7.44 BLOOD GAS, [id number] 20:46:00* Test Item Value Reference Range Interpretation [...] (test code = 1819) 60.0 % POCT-GLUCOSE [id number] 20:20:00* Test Item Value Reference Range Interpretation Comments POC-GLUCOSE METER (BEAKER) (test code = 1538) 142 mg/dL 70-110 H TESTED AT [facility] [address] [place] [address] BASIC METABOLIC [id number] 18:55:00* Test Item Value Reference Range Interpretation [...] PATIENTS. Specimen markedly ictericRAD, ABDOMEN/KUB, 1 VIEW [id number] 17:56:00Reason for exam:->feeding tube placement.FINAL REPORT CLINICAL [...] MDReport Verified Date/Time: 06/09/2018 17:56:44 Reading Location: [address] Reading Room -GLUCOSE [id number] 17:49:00* Test Item Value Reference Range Interpretation Comments POC-GLUCOSE METER (BEAKER) (test code = 1538) 131 mg/dL 70-110 H TESTED AT [place] [id number] [facility] [address] POCT-GLUCOSE [id number] 16:36:00* Test Item Value Reference Range Interpretation Comments POC-GLUCOSE METER (BEAKER) (test code = 1538) 112 mg/dL 70-110 H TESTED AT [place] [id number] [facility] [address] POCT-GLUCOSE [id number] 14:37:00* Test Item Value Reference Range Interpretation Comments POC-GLUCOSE METER (BEAKER) (test code = 1538) 88 mg/dL 70-110 TESTED AT [place] [id number] [facility] [address] POCT-GLUCOSE [id number] 12:48:00* Test Item Value Reference Range Interpretation Comments POC-GLUCOSE METER (BEAKER) (test code = 1538) 104 mg/dL 70-110 TESTED AT [place] [address] [facility] [address] [id number] 12:46:00* Test Item Value Reference Range Interpretation Comments MAGNESIUM (BEAKER) (test code = 627) 2.3 mg/dL 1.6-2.6 BASIC METABOLIC [id number] 12:46:00* Test Item Value Reference Range Interpretation [...] NOT APPLICABLE FOR DIALYSIS PATIENTS. HEMOGLOBIN AND [id number] 11:59:00* Test Item Value Reference Range Interpretation Comments HEMOGLOBIN (BEAKER) (test code = 410) 8.0 GM/DL 13.7-17.5 L HEMATOCRIT (BEAKER) (test code = 411) 24.8 % 40.1-51.0 L BLOOD GAS, [id number] 11:29:00* Test Item Value Reference Range Interpretation [...] code = 1819) 60.0 % BASIC METABOLIC [id number] 07:54:00* Test Item Value Reference Range Interpretation [...] FOR DIALYSIS PATIENTS. Specimen markedly ictericBLOOD GAS, [id number] 06:45:00* Test Item Value Reference Range Interpretation [...] code = 1819) 75.0 % BASIC METABOLIC [id number] 06:44:00* Test Item Value Reference Range Interpretation [...] APPLICABLE FOR DIALYSIS PATIENTS. Specimen markedly ictericPOCT-GLUCOSE [id number] 06:22:00* Test Item Value Reference Range Interpretation Comments POC-GLUCOSE METER (BEAKER) (test code = 1538) 145 mg/dL 70-110 H TESTED AT [facility] [address] [facility] [address] [id number] 06:17:00* Test Item Value Reference Range Interpretation Comments MAGNESIUM (BEAKER) (test code = 627) 2.2 mg/dL 1.6-2.6 HEPATIC FUNCTION [id number] 06:17:00* Test Item Value Reference Range Interpretation [...] U/L 6-55 H Specimen markedly ictericBLOOD GAS, [id number] 06:04:00* Test Item Value Reference Range Interpretation [...] 75.0 % RAD, CHEST, 1 VIEW, NON [id number] 05:48:00Reason for exam:->pulmonary edemaShould this be performed [...] contours. DiscretionAdditional findings: None. Signed: Adri Avendaño Verified Date/Time: 06/09/2018 05:48:52 Reading Location: [address] Neuro Reading Room D GAS, [id number] 04:53:00* Test Item Value Reference Range Interpretation [...] (test code = 1819) 75.0 % CALCIUM, [id number] 04:52:00* Test Item Value Reference Range Interpretation Comments CALCIUM IONIZED (BEAKER) (test code = 698) 1.08 mmol/L 1.12-1.27 L PH, BLOOD (BEAKER) (test code = 1810) 7.55 POCT-GLUCOSE [id number] 04:32:00* Test Item Value Reference Range Interpretation Comments POC-GLUCOSE METER (BEAKER) (test code = 1538) 144 mg/dL 70-110 H TESTED AT [facility] [address] [facility] [address] CBC W/PLT COUNT & AUTO [id number] 04:27:00* Test Item Value Reference Range Interpretation [...] code = 2801) 3 % 0-1 H [id number] 04:21:00* Test Item Value Reference Range Interpretation Comments PARTIAL THROMBOPLASTIN TIME (BEAKER) (test code = 760) 49.5 seconds 22.5-36.0 H PROTHROMBIN [id number] 04:20:00* Test Item Value Reference Range Interpretation Comments PROTIME (BEAKER) (test code = 759) 17.8 seconds 11.7-14.7 H INR (BEAKER) (test code = 370) 1.5 <=5.9 RECOMMENDED COUMADIN/WARFARIN INR THERAPY RANGESSTANDARD DOSE: 2.0 - 3.0 Inclu herb: PROPHYLAXIS for venous thrombosis, systemic embolization; TREATMENT for giulia ous thrombosis and/or pulmonary embolus.HIGH RISK: Target INR is 2.5-3.5 for pat ients with mechanical heart valves.POCT-GLUCOSE [id number] 03:44:00* Test Item Value Reference Range Interpretation Comments POC-GLUCOSE METER (BEAKER) (test code = 1538) 147 mg/dL 70-110 H TESTED AT [facility] [address] [facility] [address] BASIC METABOLIC [id number] 03:13:00* Test Item Value Reference Range Interpretation [...] APPLICABLE FOR DIALYSIS PATIENTS. Specimen markedly ictericPOCT-GLUCOSE [id number] 02:34:00* Test Item Value Reference Range Interpretation Comments POC-GLUCOSE METER (BEAKER) (test code = 1538) 158 mg/dL 70-110 H TESTED AT [facility] [address] [facility] [address] POCT-GLUCOSE [id number] 01:37:00* Test Item Value Reference Range Interpretation Comments POC-GLUCOSE METER (BEAKER) (test code = 1538) 158 mg/dL 70-110 H TESTED AT [place] [id number] [facility] [address] POCT-GLUCOSE [id number] 23:59:00* Test Item Value Reference Range Interpretation Comments POC-GLUCOSE METER (BEAKER) (test code = 1538) 150 mg/dL 70-110 H TESTED AT [facility] [address] [facility] [address] [id number] 22:28:00* Test Item Value Reference Range Interpretation Comments MAGNESIUM (BEAKER) (test code = 627) 2.4 mg/dL 1.6-2.6 Specimen slightly hemolyzed Check Serum Potassium level 2 hours after oral potassium replacement completed o r 30 min after intravenous potassium replacement.[id number] 21:44:00* Test Item Value Reference Range Interpretation Comments POTASSIUM (BEAKER) (test code = 379) 3.6 meq/L 3.5-5.1 Specimen slightly hemolyzed Check Serum Potassium level 2 hours after oral potassium replacement completed o r 30 min after intravenous potassium replacement.CALCIUM, [id number] 21:20:00* Test Item Value Reference Range Interpretation Comments CALCIUM IONIZED (BEAKER) (test code = 698) 1.06 mmol/L 1.12-1.27 L PH, BLOOD (BEAKER) (test code = 1810) 7.52 Check serum Ionized Calcium level after 4 hours after IV Calcium replacement. BASIC METABOLIC [id number] 20:46:00* Test Item Value Reference Range Interpretation [...] APPLICABLE FOR DIALYSIS PATIENTS. Specimen markedly ictericPOCT-GLUCOSE [id number] 20:42:00* Test Item Value Reference Range Interpretation Comments POC-GLUCOSE METER (BEAKER) (test code = 1538) 158 mg/dL 70-110 H TESTED AT [facility] [address] [facility] [address] BLOOD [id number] 20:01:00* Test Item Value Reference Range Interpretation Comments CULTURE (BEAKER) (test code = 1095) No growth in 5 days BLOOD [id number] 20:01:00* Test Item Value Reference Range Interpretation Comments CULTURE (BEAKER) (test code = 1095) No growth in 5 days BLOOD GAS, [id number] 18:23:00* Test Item Value Reference Range Interpretation [...] (test code = 1819) 75.0 % POCT-GLUCOSE [id number] 18:21:00* Test Item Value Reference Range Interpretation Comments POC-GLUCOSE METER (BEAKER) (test code = 1538) 145 mg/dL 70-110 H TESTED AT [facility] [address] [facility] [address] POCT-GLUCOSE [id number] 18:21:00* Test Item Value Reference Range Interpretation Comments POC-GLUCOSE METER (BEAKER) (test code = 1538) 122 mg/dL 70-110 H TESTED AT [facility] [address] [facility] [address] CORTISOL,60 [id number] 18:04:00* Test Item Value Reference Range Interpretation [...] a study by Debbie et al ([place] 2000,283(0):4904-62), the ACTH Stimulation Test provides important prognostic [...] level 60 minutes after cosyntropin administration. CORTISOL,30 [id number] 17:15:00* Test Item Value Reference Range Interpretation Comments CORTISOL BASELINE NETWORKED (Cheggin) (test code = 2307) 17.6 mcg/dL CORTISOL, [...] to a study by Debbie et al ([facility] 2000,283(8):1696-45), the ACTH Stimulation Test provides important prognostic [...] level 60 minutes after cosyntropin administration.POCT- GLUCOSE [id number] 15:59:00* Test Item Value Reference Range Interpretation Comments POC-GLUCOSE METER (BEAKER) (test code = 1538) 162 mg/dL 70-110 H TESTED AT [facility] [address] [facility] [address] CORTISOL,[id number] 14:41:00* Test Item Value Reference Range Interpretation Comments CORTISOL, BASELINE ([facility]) (test code = 1803) 17.6 ug/dL ACTH [...] to a study by Debbie et al ([facility] 2000,283(8):8845-45), the ACTH Stimulation Test provides important prognostic [...] level 60 minutes after cosyntropin administration.POCT- GLUCOSE [id number] 13:55:00* Test Item Value Reference Range Interpretation Comments POC-GLUCOSE METER (BEAKER) (test code = 1538) 158 mg/dL 70-110 H TESTED AT [place] [id number] [facility] [address] POCT-GLUCOSE [id number] 13:55:00* Test Item Value Reference Range Interpretation Comments POC-GLUCOSE METER (BEAKER) (test code = 1538) 117 mg/dL 70-110 H TESTED AT [address] [address] BASIC METABOLIC [id number] 13:17:00* Test Item Value Reference Range Interpretation [...] NOT APPLICABLE FOR DIALYSIS PATIENTS. Specimen markedly [id number] 13:13:00* Test Item Value Reference Range Interpretation Comments MAGNESIUM (BEAKER) (test code = 627) 2.5 mg/dL 1.6-2.6 POCT-GLUCOSE [id number] 12:15:00* Test Item Value Reference Range Interpretation Comments POC-GLUCOSE METER (BEAKER) (test code = 1538) 139 mg/dL 70-110 H TESTED AT [facility] [address] [facility] [address] BLOOD GAS, [id number] 11:28:00* Test Item Value Reference Range Interpretation [...] (BEAKER) (test code = 1819) 75.0 % [id number] 09:54:00* Test Item Value Reference Range Interpretation Comments MAGNESIUM (BEAKER) (test code = 627) 2.5 mg/dL 1.6-2.6 Specimen slightly hemolyzed CALCIUM, [id number] 09:22:00* Test Item Value Reference Range Interpretation Comments CALCIUM IONIZED (BEAKER) (test code = 698) 1.08 mmol/L 1.12-1.27 L PH, BLOOD (BEAKER) (test code = 1810) 7.48 Check serum Ionized Calcium level after 4 hours after IV Calcium replacement.CT, CHEST, WITHOUT [id number] 09:01:00FINAL REPORT CT scan of the chest, [...] MDReport Verified Date/Time: 06/08/2018 09:01:11 Reading Location: [address] Consult Reading Room , [id number] 09:01:00FINAL REPORT CT scan of the chest, [...] [place] Verified Date/Time: 06/08/2018 09:01:11 Reading Location: [address] Ortho Consult Reading Room -GLUCOSE [id number] 06:37:00* Test Item Value Reference Range Interpretation Comments POC-GLUCOSE METER (BEAKER) (test code = 1538) 142 mg/dL 70-110 H TESTED AT [facility] [address] [facility] [address] BLOOD GAS, [id number] 06:34:00* Test Item Value Reference Range Interpretation [...] (BEAKER) (test code = 1819) 90.0 % [id number] 06:11:00* Test Item Value Reference Range Interpretation Comments PARTIAL THROMBOPLASTIN TIME (BEAKER) (test code = 760) 54.2 seconds 22.5-36.0 H PROTHROMBIN [id number] 06:10:00* Test Item Value Reference Range Interpretation [...] pat ients with mechanical heart valves.HEPATIC FUNCTION [id number] 05:51:00* Test Item Value Reference Range Interpretation [...] U/L 6-55 H Specimen markedly ictericBASIC METABOLIC [id number] 05:51:00* Test Item Value Reference Range Interpretation [...] APPLICABLE FOR DIALYSIS PATIENTS. Specimen markedly ictericPOCT-GLUCOSE [id number] 05:43:00* Test Item Value Reference Range Interpretation Comments POC-GLUCOSE METER (BEAKER) (test code = 1538) 140 mg/dL 70-110 H TESTED AT [facility] [address] [facility] [address] [id number] 05:36:00* Test Item Value Reference Range Interpretation Comments MAGNESIUM (BEAKER) (test code = 627) 2.3 mg/dL 1.6-2.6 [id number] 05:25:00* Test Item Value Reference Range Interpretation Comments PHOSPHORUS (BEAKER) (test code = 604) 4.9 mg/dL 2.3-4.7 H Specimen slightly hemolyzed Check Serum Phosphorus level 4 hours after IV phosphorus replacement or 8 hours after PO replacement completed.POCT-GLUCOSE [id number] 04:20:00* Test Item Value Reference Range Interpretation Comments POC-GLUCOSE METER (BEAKER) (test code = 1538) 153 mg/dL 70-110 H TESTED AT [facility] [address] [facility] [address] RAD, CHEST, 1 VIEW, NON [id number] 04:10:00Reason for exam:->s/p intubation FINAL REPORT CLINICAL [...] V erified Date/Time: 06/08/2018 04:10:15 Reading Location: [address] Reading Room W/PLT COUNT & AUTO [id number] 03:53:00* Test Item Value Reference Range Interpretation [...] = 2801) 2 % 0-1 H CALCIUM, [id number] 02:54:00* Test Item Value Reference Range Interpretation Comments CALCIUM IONIZED (BEAKER) (test code = 698) 1.09 mmol/L 1.12-1.27 L PH, BLOOD (BEAKER) (test code = 1810) 7.45 Check serum Ionized Calcium level after 4 hours after IV Calcium replacement. BLOOD GAS, [id number] 02:54:00* Test Item Value Reference Range Interpretation [...] 100.0 % RAD, CHEST, 1 VIEW, NON [id number] 02:16:00Reason for exam:->tachypneaFINAL REPORT CLINICAL INDICATION: Kidney [...] Verified Date/Time: 0 06/08/2018 02:16:21 Reading Location: [address] Reading Room E lectronically signed by: KATHERINE REICH M.D. on 06/08/2018 02:16 AM BASIC METABOLIC [id number] 01:44:00* Test Item Value Reference Range Interpretation [...] APPLICABLE FOR DIALYSIS PATIENTS. Specimen markedly ictericPOCT-GLUCOSE [id number] 01:18:00* Test Item Value Reference Range Interpretation Comments POC-GLUCOSE METER (BEAKER) (test code = 1538) 122 mg/dL 70-110 H TESTED AT [address] [address] BLOOD GAS, [id number] 01:03:00* Test Item Value Reference Range Interpretation [...] (test code = 1819) 100.0 % POCT-GLUCOSE [id number] 00:19:00* Test Item Value Reference Range Interpretation Comments POC-GLUCOSE METER (BEAKER) (test code = 1538) 136 mg/dL 70-110 H TESTED AT [address] [address] BLOOD GAS, [id number] 23:19:00* Test Item Value Reference Range Interpretation [...] (test code = 1819) 40.0 % POCT-GLUCOSE [id number] 22:58:00* Test Item Value Reference Range Interpretation Comments POC-GLUCOSE METER (BEAKER) (test code = 1538) 128 mg/dL 70-110 H TESTED AT [facility] [address] [facility] [address] POCT-GLUCOSE [id number] 22:00:00* Test Item Value Reference Range Interpretation Comments POC-GLUCOSE METER (BEAKER) (test code = 1538) 108 mg/dL 70-110 TESTED AT [facility] [address] [facility] [address] BASIC METABOLIC [id number] 21:50:00* Test Item Value Reference Range Interpretation [...] NOT APPLICABLE FOR DIALYSIS PATIENTS. Specimen markedly [id number] 21:38:00* Test Item Value Reference Range Interpretation Comments MAGNESIUM (BEAKER) (test code = 627) 2.0 mg/dL 1.6-2.6 CALCIUM, [id number] 21:15:00* Test Item Value Reference Range Interpretation Comments CALCIUM IONIZED (BEAKER) (test code = 698) 1.12 mmol/L 1.12-1.27 PH, BLOOD (BEAKER) (test code = 1810) 7.51 Check serum Ionized Calcium level after 4 hours after IV Calcium replacement. POCT-GLUCOSE [id number] 20:58:00* Test Item Value Reference Range Interpretation Comments POC-GLUCOSE METER (BEAKER) (test code = 1538) 97 mg/dL 70-110 [address]ED AT [address] [address] POCT-GLUCOSE [id number] 19:42:00* Test Item Value Reference Range Interpretation Comments POC-GLUCOSE METER (BEAKER) (test code = 1538) 101 mg/dL 70-110 TESTED AT [address] [address] POCT-GLUCOSE [id number] 18:42:00* Test Item Value Reference Range Interpretation Comments POC-GLUCOSE METER (BEAKER) (test code = 1538) 97 mg/dL 70-110 TESTED AT [address] [address] BLOOD GAS, [id number] 16:56:00* Test Item Value Reference Range Interpretation [...] (test code = 1819) 100.0 % POCT-GLUCOSE [id number] 16:45:00* Test Item Value Reference Range Interpretation Comments POC-GLUCOSE METER (BEAKER) (test code = 1538) 149 mg/dL 70-110 H TESTED AT [address] [address] POCT-GLUCOSE [id number] 15:25:00* Test Item Value Reference Range Interpretation Comments POC-GLUCOSE METER (BEAKER) (test code = 1538) 74 mg/dL 70-110 TESTED AT [address] [address] POCT-GLUCOSE [id number] 14:31:00* Test Item Value Reference Range Interpretation Comments POC-GLUCOSE METER (BEAKER) (test code = 1538) 129 mg/dL 70-110 H TESTED AT [address] [address] [id number] 13:46:00* Test Item Value Reference Range Interpretation Comments MAGNESIUM (BEAKER) (test code = 627) 1.8 mg/dL 1.6-2.6 BASIC METABOLIC [id number] 13:46:00* Test Item Value Reference Range Interpretation [...] APPLICABLE FOR DIALYSIS PATIENTS. Specimen markedly ictericPOCT-GLUCOSE [id number] 13:03:00* Test Item Value Reference Range Interpretation Comments POC-GLUCOSE METER (BEAKER) (test code = 1538) 182 mg/dL 70-110 H TESTED AT [address] [address] ANTI-MITOCHONDRIAL AB, REFLEX TO [id number] 11:38:00* Test Item Value Reference Range Interpretation Comments SCAN RESULT (test code = 1761918) CBC W/PLT COUNT & AUTO [id number] 11:36:00* Test Item Value Reference Range Interpretation [...] Received comment: User comments: Slide comments: POCT-GLUCOSE [id number] 11:35:00* Test Item Value Reference Range Interpretation Comments POC-GLUCOSE METER (BEAKER) (test code = 1538) 128 mg/dL 70-110 H TESTED AT [place] [id number] [facility] [address] POCT-GLUCOSE [id number] 11:13:00* Test Item Value Reference Range Interpretation Comments POC-GLUCOSE METER (BEAKER) (test code = 1538) 97 mg/dL 70-110 TESTED AT [place] [address] [facility] [address] POCT-GLUCOSE [id number] 11:13:00* Test Item Value Reference Range Interpretation Comments POC-GLUCOSE METER (BEAKER) (test code = 1538) 68 mg/dL 70-110 L TESTED AT [place] [id number] [facility] [address] BLOOD GAS, [id number] 10:41:00* Test Item Value Reference Range Interpretation [...] code = 1819) 100.0 % CATHETER TIP [id number] 09:30:00* Test Item Value Reference Range Interpretation Comments CULTURE (BEAKER) (test code = 1095) No growth BLOOD GAS, [id number] 08:13:00* Test Item Value Reference Range Interpretation [...] (test code = 1819) 65.0 % POCT-GLUCOSE [id number] 07:48:00* Test Item Value Reference Range Interpretation Comments POC-GLUCOSE METER (BEAKER) (test code = 1538) 127 mg/dL 70-110 H TESTED AT [facility] [address] [place] [address] RAD, CHEST, 1 VIEW, NON [id number] 07:37:00Reason for exam:->resp failureShould this be performed [...] of interstitial pulmonary disease. Signed: Keith Garcia MDReport Verified Date/Time: 06/07/2018 07:37:40 Reading Location: [facility] Radiology Reading Room -GLUCOSE METER 2018-06-07 06:32:00* Test Item Value Reference Range Interpretation Comments POC-GLUCOSE METER (BEAKER) (test code = 1538) 165 mg/dL 70-110 H TESTED AT [facility] [address] [facility] [address] BLOOD GAS, [id number] 05:35:00* Test Item Value Reference Range Interpretation [...] (test code = 1819) 60.0 % CALCIUM, [id number] 05:35:00* Test Item Value Reference Range Interpretation Comments CALCIUM IONIZED (BEAKER) (test code = 698) 0.96 mmol/L 1.12-1.27 L PH, BLOOD (BEAKER) (test code = 1810) 7.45 HEPATIC FUNCTION [id number] 05:32:00* Test Item Value Reference Range Interpretation [...] 103 U/L 6-55 H Specimen markedly ictericPOCT-GLUCOSE [id number] 05:18:00* Test Item Value Reference Range Interpretation Comments POC-GLUCOSE METER (BEAKER) (test code = 1538) 182 mg/dL 70-110 H TESTED AT [facility] [address] [facility] [address] BASIC METABOLIC [id number] 05:17:00* Test Item Value Reference Range Interpretation [...] FOR DIALYSIS PATIENTS. Specimen markedly ictericLACTIC ACID, [id number] 04:58:00* Test Item Value Reference Range Interpretation Comments LACTATE BLOOD ARTERIAL (2) (BEAKER) (test code = 2874) 1.2 mmol/L 0.5-2.2 Specimen markedly [id number] 04:50:00* Test Item Value Reference Range Interpretation Comments PARTIAL THROMBOPLASTIN TIME (BEAKER) (test code = 760) 43.5 seconds 22.5-36.0 H PROTHROMBIN TIME/[id number] 04:49:00* Test Item Value Reference Range Interpretation Comments PROTIME (BEAKER) (test code = 759) 18.1 seconds 11.7-14.7 H INR (BEAKER) (test code = 370) 1.5 <=5.9 RECOMMENDED COUMADIN/WARFARIN INR THERAPY RANGESSTANDARD DOSE: 2.0 - 3.0 Inclu herb: PROPHYLAXIS for venous thrombosis, systemic embolization; TREATMENT for giulia ous thrombosis and/or pulmonary embolus.HIGH RISK: Target INR is 2.5-3.5 for pat ients with mechanical heart valves.POCT-GLUCOSE [id number] 04:16:00* Test Item Value Reference Range Interpretation Comments POC-GLUCOSE METER (BEAKER) (test code = 1538) 180 mg/dL 70-110 H TESTED AT [address] [address] POCT-GLUCOSE [id number] 03:20:00* Test Item Value Reference Range Interpretation Comments POC-GLUCOSE METER (BEAKER) (test code = 1538) 171 mg/dL 70-110 H TESTED AT [address] [address] POCT-GLUCOSE [id number] 02:44:00* Test Item Value Reference Range Interpretation Comments POC-GLUCOSE METER (BEAKER) (test code = 1538) 154 mg/dL 70-110 H TESTED AT [address] [address] POCT-GLUCOSE [id number] 01:31:00* Test Item Value Reference Range Interpretation Comments POC-GLUCOSE METER (BEAKER) (test code = 1538) 140 mg/dL 70-110 H TESTED AT [address] [address] BASIC METABOLIC [id number] 01:02:00* Test Item Value Reference Range Interpretation [...] APPLICABLE FOR DIALYSIS PATIENTS. Specimen markedly ictericPOCT-GLUCOSE [id number] 00:57:00* Test Item Value Reference Range Interpretation Comments POC-GLUCOSE METER (BEAKER) (test code = 1538) 173 mg/dL 70-110 H TESTED AT [facility] [address] [facility] [address] POCT-GLUCOSE [id number] 23:27:00* Test Item Value Reference Range Interpretation Comments POC-GLUCOSE METER (BEAKER) (test code = 1538) 155 mg/dL 70-110 H TESTED AT [address] [address] BASIC METABOLIC [id number] 22:38:00* Test Item Value Reference Range Interpretation [...] NOT APPLICABLE FOR DIALYSIS PATIENTS. Specimen markedly [id number] 22:37:00* Test Item Value Reference Range Interpretation Comments MAGNESIUM (BEAKER) (test code = 627) 2.0 mg/dL 1.6-2.6 BLOOD GAS, [id number] 22:18:00* Test Item Value Reference Range Interpretation [...] (test code = 1819) 60.0 % CALCIUM, [id number] 22:15:00* Test Item Value Reference Range Interpretation Comments CALCIUM IONIZED (BEAKER) (test code = 698) 1.05 mmol/L 1.12-1.27 L PH, BLOOD (BEAKER) (test code = 1810) 7.46 POCT-GLUCOSE [id number] 22:08:00* Test Item Value Reference Range Interpretation Comments POC-GLUCOSE METER (BEAKER) (test code = 1538) 138 mg/dL 70-110 H TESTED AT [facility] [address] [facility] [address] POCT-GLUCOSE [id number] 21:16:00* Test Item Value Reference Range Interpretation Comments POC-GLUCOSE METER (BEAKER) (test code = 1538) 158 mg/dL 70-110 H TESTED AT [place] [id number] [facility] [address] [id number] 21:03:00* Test Item Value Reference Range Interpretation Comments POTASSIUM (BEAKER) (test code = 379) 3.8 meq/L 3.5-5.1 Check Serum Potassium level 2 hours after oral potassium replacement completed o r 30 min after intravenous potassium replacement.[id number] 21:03:00* Test Item Value Reference Range Interpretation Comments MAGNESIUM (BEAKER) (test code = 627) 2.0 mg/dL 1.6-2.6 Check Serum Potassium level 2 hours after oral potassium replacement completed o r 30 min after intravenous potassium replacement.POCT-GLUCOSE [id number] 20:15:00* Test Item Value Reference Range Interpretation Comments POC-GLUCOSE METER (BEAKER) (test code = 1538) 161 mg/dL 70-110 H TESTED AT [facility] [address] [facility] [address] POCT-GLUCOSE [id number] 20:15:00* Test Item Value Reference Range Interpretation Comments POC-GLUCOSE METER (BEAKER) (test code = 1538) 113 mg/dL 70-110 H TESTED AT [address] [address] POCT-GLUCOSE [id number] 19:33:00* Test Item Value Reference Range Interpretation Comments POC-GLUCOSE METER (BEAKER) (test code = 1538) 169 mg/dL 70-110 H TESTED AT [address] [address] [id number] 17:52:00* Test Item Value Reference Range Interpretation Comments CORTISOL, TOTAL (BEAKER) (test code = 2755) 23.9 ug/dL 3.7-19.4 H C. DIFFICILE GDH [id number] 17:45:00* Test Item Value Reference Range Interpretation Comments CDT TOXIN (test code = 3671804507) Negative Negative CDT GDH ANTIGEN (test code = 9849881280) Positive Negative A C. difficile present but [...] of kit performance was done by the [facility] Microbiology Lab prior to cl inical use.BASIC METABOLIC [id number] 16:48:00* Test Item Value Reference Range Interpretation [...] APPLICABLE FOR DIALYSIS PATIENTS. Specimen markedly ictericPOCT-GLUCOSE [id number] 15:10:00* Test Item Value Reference Range Interpretation Comments POC-GLUCOSE METER (BEAKER) (test code = 1538) 78 mg/dL 70-110 TESTED AT [facility] [address] [facility] [address] TROPONIN [id number] 13:26:00* Test Item Value Reference Range Interpretation [...] acidosis, acute neurological disease, and per sistent tachyarrhythmia.[id number] 13:14:00* Test Item Value Reference Range Interpretation [...] 0.50 MG/L FEU, the Negative Predictive Value (TRAFFIC COURT MAGISTRATE V) regarding the exclusion of thrombosis is within 95-100% range.LACTIC ACID, [id number] 13:12:00* Test Item Value Reference Range Interpretation Comments LACTATE BLOOD ARTERIAL (2) (BEAKER) (test code = 2874) 1.3 mmol/L 0.5-2.2 Specimen markedly [id number] 12:57:00* Test Item Value Reference Range Interpretation Comments MAGNESIUM (BEAKER) (test code = 627) 2.1 mg/dL 1.6-2.6 POCT-GLUCOSE [id number] 12:21:00* Test Item Value Reference Range Interpretation Comments POC-GLUCOSE METER (BEAKER) (test code = 1538) 162 mg/dL 70-110 H TESTED AT [facility] [address] [facility] [address] BLOOD [id number] 12:01:00* Test Item Value Reference Range Interpretation Comments CULTURE (BEAKER) (test code = 1095) No growth in 5 days BLOOD [id number] 12:01:00* Test Item Value Reference Range Interpretation Comments CULTURE (BEAKER) (test code = 1095) No growth in 5 days YARI ANTIGEN WITH REFLEX TO [id number] 11:08:00* Test Item Value Reference Range Interpretation Comments YARI ANTIGEN (BEAKER) (test code = 1782) Positive YARI ANTIGEN [id number] 11:08:00* Test Item Value Reference Range Interpretation Comments YARI ANTIGEN TITER (BEAKER) (test code = 737) :4 POCT-GLUCOSE [id number] 11:00:00* Test Item Value Reference Range Interpretation Comments POC-GLUCOSE METER (BEAKER) (test code = 1538) 153 mg/dL 70-110 H TESTED AT [facility] [address] [facility] [address] RAD, CHEST, 1 VIEW, NON [id number] 10:38:00Reason for exam:->oxygen desaturation in setting of [...] MDReport Verified Date/Time: 06/06/2018 10:38:12 Reading Location: [facility] Radiology Reading Room -NUCLEAR ANTIBODY (TOM)2018-06-06 10:20:00* [...] (BEAKER) (test code = 1819) 100.0 % [id number] 09:37:00* Test Item Value Reference Range Interpretation Comments LIPASE (BEAKER) (test code = 749) 6 U/L 8-78 L Specimen markedly ictericHEPATIC FUNCTION [id number] 09:37:00* Test Item Value Reference Range Interpretation [...] 347) 105 U/L 6-55 H Specimen markedly [id number] 09:36:00* Test Item Value Reference Range Interpretation Comments AMYLASE (BEAKER) (test code = 349) 17 U/L 25-125 L Specimen markedly [id number] 09:24:00* Test Item Value Reference Range Interpretation Comments CORTISOL, TOTAL (BEAKER) (test code = 2755) 19.9 ug/dL 3.7-19.4 H SPUTUM CULTURE + GRAM [id number] 08:59:00* Test Item Value Reference Range Interpretation Comments CULTURE (BEAKER) (test code = 1095) No growth GRAM STAIN RESULT (BEAKER) (test code = 1123) 3+ WBCs GRAM STAIN RESULT (BEAKER) (test code = 62859) 0-5 epithelial cells GRAM STAIN RESULT (BEAKER) (test code = 50905) No organisms seen BRONCHIAL CULTURE + GRAM [id number] 08:58:00* Test Item Value Reference Range Interpretation Comments CULTURE (BEAKER) (test code = 1095) <1+ Normal respiratory chase pr esent GRAM STAIN RESULT (BEAKER) (test code = 1123) 4+ WBCs GRAM STAIN RESULT (BEAKER) (test code = 20923) No organisms seen BRONCHIAL CULTURE + GRAM [id number] 08:58:00* Test Item Value Reference Range Interpretation Comments CULTURE (BEAKER) (test code = 1095) No growth GRAM STAIN RESULT (BEAKER) (test code = 1123) 1+ WBCs GRAM STAIN RESULT (BEAKER) (test code = 08628) No organisms seen POCT-GLUCOSE [id number] 08:15:00* Test Item Value Reference Range Interpretation Comments POC-GLUCOSE METER (BEAKER) (test code = 1538) 117 mg/dL 70-110 H TESTED AT [address] [address] CBC W/PLT COUNT & AUTO [id number] 07:36:00* Test Item Value Reference Range Interpretation [...] comment: User comments: Slide comments: BLOOD GAS, [id number] 06:28:00* Test Item Value Reference Range Interpretation [...] (test code = 1819) 80.0 % POCT-GLUCOSE [id number] 06:21:00* Test Item Value Reference Range Interpretation Comments POC-GLUCOSE METER (BEAKER) (test code = 1538) 130 mg/dL 70-110 H TESTED AT [facility] [address] [facility] [address] RAD, CHEST, 1 VIEW, NON [id number] 05:21:00Reason for exam:->hypoxiaShould this be performed at [...] Stable contours. Additional findings: None. Signed: Adri Avendañoort Verified Date/Time: 06/06/2018 05:21:30 Reading Location: [facility] C013V Neuro Reading Room -GLUCOSE [id number] 05:10:00* Test Item Value Reference Range Interpretation Comments POC-GLUCOSE METER (BEAKER) (test code = 1538) 144 mg/dL 70-110 H TESTED AT [facility] [address] [facility] [address] POCT-GLUCOSE [id number] 04:17:00* Test Item Value Reference Range Interpretation Comments POC-GLUCOSE METER (BEAKER) (test code = 1538) 161 mg/dL 70-110 H TESTED AT [place] [id number] [facility] [address] [id number] 04:06:00* Test Item Value Reference Range Interpretation Comments PHOSPHORUS (BEAKER) (test code = 604) 3.8 mg/dL 2.3-4.7 Check Serum Phosphorus level 4 hours after IV phosphorus replacement or 8 hours after PO replacement completed.[id number] 04:06:00* Test Item Value Reference Range Interpretation Comments MAGNESIUM (BEAKER) (test code = 627) 2.5 mg/dL 1.6-2.6 Check Serum Phosphorus level 4 hours after IV phosphorus replacement or 8 hours after PO replacement completed.BASIC METABOLIC [id number] 04:06:00* Test Item Value Reference Range Interpretation [...] 8 hours after PO replacement completed.Specimen markedly [id number] 04:02:00 * Test Item Value Reference Range Interpretation Comments PARTIAL THROMBOPLASTIN TIME (BEAKER) (test code = 760) 44.7 seconds 22.5-36.0 H PROTHROMBIN TIME/[id number] 04:00:00* Test Item Value Reference Range Interpretation [...] pat ients with mechanical heart valves.BLOOD GAS, [id number] 03:38:00* Test Item Value Reference Range Interpretation [...] code = 1819) 70.0 % BASIC METABOLIC [id number] 03:34:00* Test Item Value Reference Range Interpretation [...] APPLICABLE FOR DIALYSIS PATIENTS. Specimen markedly ictericPOCT-GLUCOSE [id number] 03:19:00* Test Item Value Reference Range Interpretation Comments POC-GLUCOSE METER (BEAKER) (test code = 1538) 171 mg/dL 70-110 H TESTED AT [facility] [address] [facility] [address] POCT-GLUCOSE [id number] 02:34:00* Test Item Value Reference Range Interpretation Comments POC-GLUCOSE METER (BEAKER) (test code = 1538) 201 mg/dL 70-110 H TESTED AT [facility] [address] [facility] [address] POCT-GLUCOSE [id number] 01:17:00* Test Item Value Reference Range Interpretation Comments POC-GLUCOSE METER (BEAKER) (test code = 1538) 174 mg/dL 70-110 H TESTED AT [address] [address] [id number] 00:15:00* Test Item Value Reference Range Interpretation Comments MAGNESIUM (BEAKER) (test code = 627) 2.3 mg/dL 1.6-2.6 POCT-GLUCOSE [id number] 00:10:00* Test Item Value Reference Range Interpretation Comments POC-GLUCOSE METER (BEAKER) (test code = 1538) 143 mg/dL 70-110 H TESTED AT [address] [address] POCT-GLUCOSE [id number] 23:18:00* Test Item Value Reference Range Interpretation Comments POC-GLUCOSE METER (BEAKER) (test code = 1538) 145 mg/dL 70-110 H TESTED AT [address] [address] POCT-GLUCOSE [id number] 22:18:00* Test Item Value Reference Range Interpretation Comments POC-GLUCOSE METER (BEAKER) (test code = 1538) 186 mg/dL 70-110 H TESTED AT [address] [address] POCT-GLUCOSE [id number] 21:23:00* Test Item Value Reference Range Interpretation Comments POC-GLUCOSE METER (BEAKER) (test code = 1538) 220 mg/dL 70-110 H TESTED AT [address] [address] POCT-GLUCOSE [id number] 20:47:00* Test Item Value Reference Range Interpretation Comments POC-GLUCOSE METER (BEAKER) (test code = 1538) 248 mg/dL 70-110 H TESTED AT [address] [address] POCT-GLUCOSE [id number] 19:10:00* Test Item Value Reference Range Interpretation Comments POC-GLUCOSE METER (BEAKER) (test code = 1538) 236 mg/dL 70-110 H TESTED AT [address] [address] POCT-GLUCOSE [id number] 18:16:00* Test Item Value Reference Range Interpretation Comments POC-GLUCOSE METER (BEAKER) (test code = 1538) 275 mg/dL 70-110 H TESTED AT [address] [address] BLOOD GAS, [id number] 17:21:00* Test Item Value Reference Range Interpretation [...] (test code = 1819) 60.0 % POCT-GLUCOSE [id number] 17:12:00* Test Item Value Reference Range Interpretation Comments POC-GLUCOSE METER (BEAKER) (test code = 1538) 304 mg/dL 70-110 H Will Repeat Test/TESTED AT [address] [address] POCT-GLUCOSE [id number] 16:01:00* Test Item Value Reference Range Interpretation Comments POC-GLUCOSE METER (BEAKER) (test code = 1538) 302 mg/dL 70-110 H TESTED AT [address] [address] BLOOD GAS, [id number] 14:06:00* Test Item Value Reference Range Interpretation [...] (BEAKER) (test code = 1819) 70.0 % [id number] 13:25:00* Test Item Value Reference Range Interpretation Comments POTASSIUM (BEAKER) (test code = 379) 4.1 meq/L 3.5-5.1 Specimen slightly hemolyzed [id number] 13:25:00* Test Item Value Reference Range Interpretation Comments GLUCOSE RANDOM (BEAKER) (test code = 652) 346 mg/dL 70-105 H BASIC METABOLIC [id number] 13:18:00* Test Item Value Reference Range Interpretation [...] NOT APPLICABLE FOR DIALYSIS PATIENTS. Specimen markedly [id number] 13:17:00* Test Item Value Reference Range Interpretation Comments MAGNESIUM (BEAKER) (test code = 627) 2.4 mg/dL 1.6-2.6 Specimen slightly hemolyzed BASIC METABOLIC [id number] 13:17:00* Test Item Value Reference Range Interpretation [...] APPLICABLE FOR DIALYSIS PATIENTS. Specimen markedly ictericPOCT-GLUCOSE [id number] 11:46:00* Test Item Value Reference Range Interpretation Comments POC-GLUCOSE METER (BEAKER) (test code = 1538) 297 mg/dL 70-110 H TESTED AT [address] [address] RAD, CHEST, 1 VIEW, NON [id number] 11:28:00Reason for exam:->resp failureShould this be performed at the bedside?->YesFINAL REPORT AP chest HISTORY: Respiratory failure. COMPARISON: 06/04/2018. IMPRESSION: Supportive lines unchanged. Hypoinflation. Asymmetric interstitial opacities, left greater than right, increased from previous. No pneumothorax. Signed: Eric Andrade MDReport Verified Date/Time: 06/05/2018 11:28:49 Reading Location: [facility] Radiology Reading Room IRATORY PANEL [facility] 2018-06-05 09:47:00* Test Item Value Reference Range [...] Equivocal INFLUENZA B (BEAKER) (test code = 9618) Not detected Not detected, Equivocal RESPIRATORY SYNCYTIAL VIRUS (BEAKER) (test code = 3999) Not detected Not detected, Equivocal PARAINFLUENZA VIRUS [...] decisions. This sample was tested at the [facility] Molecular Diagnostics Laboratory using the [employer] Film[employer] rray Respiratory Panel. It is FDA cleared and has been verified and approved by the [facility] for clinical use on nasal swab specim ens. It is not FDA-cleared for use on bronchial wash/lavage samples. However, fo r this sample type, validation was performed and test characteristics were deter mined and approved, by [facility] [employer] [facility] laboratory for clinical use u nder the Clinical Laboratory Improvement Amendments (CLIA) of 1988 requirements. Therefore, FDA clearance is not required. This laboratory is CLIA-certified an d [employer] ([employer])-accredited to perform high complexity t esting.CBC W/PLT COUNT & AUTO [id number] 07:05:00* Test Item Value Reference Range Interpretation [...] quate Received comment: User comments: Slide comments: [id number] 06:05:00* Test Item Value Reference Range Interpretation Comments PROCALCITONIN (BEAKER) (test code = 3036) 2.30 ng/mL <0.05 H SEPSIS RISK (ng/mL)Low: 0.05-0.50Intermediate: 0.51-2.00High: > =2.01LACTIC ACID, [id number] 05:39:00* Test Item Value Reference Range Interpretation Comments LACTATE BLOOD ARTERIAL (2) (BEAKER) (test code = 2874) 1.3 mmol/L 0.5-2.2 Specimen slightly hemolyzed Specimen markedly ictericCALCIUM, [id number] 04:12:00* Test Item Value Reference Range Interpretation Comments CALCIUM IONIZED (BEAKER) (test code = 698) 0.98 mmol/L 1.12-1.27 L PH, BLOOD (BEAKER) (test code = 1810) 7.43 Check serum Ionized Calcium level after 4 hours after IV Calcium replacement. BLOOD GAS, [id number] 04:06:00* Test Item Value Reference Range Interpretation [...] (test code = 1819) 75.0 % PTH, [id number] 04:05:00* Test Item Value Reference Range Interpretation Comments PARATHYROID HORMONE INTACT (BEAKER) (test code = 577) 183.2 pg/mL 8.5-72.5 H [id number] 04:04:00* Test Item Value Reference Range Interpretation Comments PARTIAL THROMBOPLASTIN TIME (BEAKER) (test code = 760) 48.3 seconds 22.5-36.0 H PROTHROMBIN TIME/[id number] 04:03:00* Test Item Value Reference Range Interpretation [...] = 380) 90 U/L 29-20 0 POCT-GLUCOSE [id number] 00:47:00* Test Item Value Reference Range Interpretation Comments POC-GLUCOSE METER (BEAKER) (test code = 1538) 277 mg/dL 70-110 H TESTED AT [facility] [address] [facility] [address] CALCIUM, [id number] 00:37:00* Test Item Value Reference Range Interpretation Comments CALCIUM IONIZED (BEAKER) (test code = 698) 0.95 mmol/L 1.12-1.27 L PH, BLOOD (BEAKER) (test code = 1810) 7.44 Check serum Ionized Calcium level after 4 hours after IV Calcium replacement. [id number] 00:36:00* Test Item Value Reference Range Interpretation Comments POTASSIUM (BEAKER) (test code = 379) 3.9 meq/L 3.5-5.1 8 hours after PO replacement [id number] 20:35:00* Test Item Value Reference Range Interpretation Comments MAGNESIUM (BEAKER) (test code = 627) 2.3 mg/dL 1.6-2.6 BASIC METABOLIC [id number] 20:35:00* Test Item Value Reference Range Interpretation [...] FOR DIALYSIS PATIENTS. Specimen markedly ictericU/S, ABDOMINAL, [id number] 18:10:00Abdomen limited area? Add comment if clarification [...] MDReport Verified Date/Time: 06/04/2018 18:10:46 Reading Location: [facility] P006J Ultrasound Reading Room -GLUCOSE METER 2018-06-04 17:48:00* Test Item Value Reference Range Interpretation Comments POC-GLUCOSE METER (BEAKER) (test code = 1538) 294 mg/dL 70-110 H TESTED AT [facility] [address] [place] [address] CALCIUM, [id number] 15:55:00* Test Item Value Reference Range Interpretation Comments CALCIUM IONIZED (BEAKER) (test code = 698) 0.98 mmol/L 1.12-1.27 L PH, BLOOD (BEAKER) (test code = 1810) 7.50 RAD, ABDOMEN/KUB, 1 VIEW [id number] 14:34:00Reason for exam:->Cortrak placementFINAL REPORT Abdomen. CLINICAL HISTORY: Corpak placement. Comparison study: None available. FINDINGS: A single supine view the abdomen demonstrates a feeding tube in place, the distal aspect coiled near the antrum with the tip projecting over the mid stomach. This film is insensitive for the detection of free air. Signed: Andrew Sloaneport Verified Date/Time: 06/04/2018 14:34:10 Reading Location: [facility] C013W Consult Reading Room C METABOLIC [id number] 14:26:00* Test Item Value Reference Range Interpretation [...] FOR DIALYSIS PATIENTS. Specimen markedly ictericLACTIC ACID, [id number] 14:09:00* Test Item Value Reference Range Interpretation Comments LACTATE BLOOD ARTERIAL (2) (BEAKER) (test code = 2874) 1.2 mmol/L 0.5-2.2 Specimen markedly ictericPOCT-GLUCOSE [id number] 13:35:00* Test Item Value Reference Range Interpretation Comments POC-GLUCOSE METER (BEAKER) (test code = 1538) 247 mg/dL 70-110 H TESTED AT [facility] [address] [facility] [address] [id number] 11:32:00* Test Item Value Reference Range Interpretation Comments MAGNESIUM (BEAKER) (test code = 627) 2.1 mg/dL 1.6-2.6 Specimen slightly hemolyzed BASIC METABOLIC [id number] 11:32:00* Test Item Value Reference Range Interpretation [...] FOR DIALYSIS PATIENTS. Specimen markedly ictericVANCOMYCIN LEVEL, [id number] 11:20:00* Test Item Value Reference Range Interpretation Comments VANCOMYCIN RANDOM (BEAKER) (test code = 523) 27.0 ug/mL Reference Range: No NormalsURINALYSIS W/ REFLEX URINE [id number] 11:15:00 * Test Item Value Reference Range [...] = 2795) RAD, CHEST, 1 VIEW, NON [id number] 11:01:00Reason for exam:->ETT advancement, L IJ CVC [...] Shieldseport Verified Date/Time: 06/04/2018 11:01:19 Reading Location: [facility] Radiology Reading Room C METABOLIC [id number] 10:59:00* Test Item Value Reference Range Interpretation [...] NOT APPLICABLE FOR DIALYSIS PATIENTS. Specimen markedly [id number] 10:53:00* Test Item Value Reference Range Interpretation Comments AMYLASE (BEAKER) (test code = 349) 32 U/L 25-125 Specimen markedly [id number] 10:53:00* Test Item Value Reference Range Interpretation Comments LIPASE (BEAKER) (test code = 749) 27 U/L 8-78 Specimen markedly ictericBLOOD GAS, [id number] 10:51:00* Test Item Value Reference Range Interpretation [...] (test code = 368) 5.3 % 4.3-6.1 [id number] 09:15:00* Test Item Value Reference Range Interpretation Comments PROCALCITONIN (BEAKER) (test code = 3036) 2.96 ng/mL <0.05 H SEPSIS RISK (ng/mL)Low: 0.05-0.50Intermediate: 0.51-2.00High: > =2.01RAD, CHEST, 1 VIEW, NON [id number] 09:01:00Reason for exam:->ARDSFINAL REPORT TECHNIQUE: Frontal chest radiograph dated . CLINICAL HISTORY: ARDS COMPARISON STUDY: Chest radiograph dated 9 IMPRESSION:Life support tubes and lines are unchanged. There is stable atelect asis in the left lung base. No pleural effusion or pneumothorax. Cardiomediastin al silhouette is normal in size. No pulmonary edema. No fracture. Signed: Sb [place] Verified Date/Time: 06/04/2018 09:01:21 Reading Location : [facility] Radiology Reading Room IC ACID, [id number] 08:49:00* Test Item Value Reference Range Interpretation Comments LACTATE BLOOD ARTERIAL (2) (BEAKER) (test code = 2874) 1.4 mmol/L 0.5-2.2 Specimen moderately ictericBLOOD GAS, [id number] 05:26:00* Test Item Value Reference Range Interpretation [...] code = 1819) 80.0 % COMPREHENSIVE METABOLIC [id number] 04:41:00* Test Item Value Reference Range Interpretation [...] FOR DIALYSIS PATIENTS. Specimen markedly ictericHEPATIC FUNCTION [id number] 04:41:00* Test Item Value Reference Range Interpretation [...] U/L 6-55 H Specimen markedly ictericLACTIC ACID, [id number] 04:32:00* Test Item Value Reference Range Interpretation Comments LACTATE BLOOD ARTERIAL (2) (BEAKER) (test code = 2874) 1.6 mmol/L 0.5-2.2 Specimen markedly usjjflaIFGDRXXJIO3943-20-32 04:31:00* Test Item Value Reference Range Interpretation Comments FIBRINOGEN LEVEL (BEAKER) (test code = 658) 592 mg/dl 225-434 H PT/[id number] 04:31:00* Test Item Value Reference Range Interpretation [...] 2.5-3.5 for pat ients with mechanical heart valves.[id number] 04:31:00* Test Item Value Reference Range Interpretation Comments PARTIAL THROMBOPLASTIN TIME (BEAKER) (test code = 760) 41.5 seconds 22.5-36.0 H PROTHROMBIN TIME/[id number] 04:30:00* Test Item Value Reference Range Interpretation [...] mechanical heart valves.CBC W/PLT COUNT & AUTO [id number] 04:15:00* Test Item Value Reference Range Interpretation [...] = 2801) 3 % 0-1 H POCT-GLUCOSE [id number] 23:44:00* Test Item Value Reference Range Interpretation Comments POC-GLUCOSE METER (BEAKER) (test code = 1538) 195 mg/dL 70-110 H TESTED AT [facility] [address] [facility] [address] RAD, CHEST, 1 VIEW, NON [id number] 21:14:00Reason for exam:->respiratory failure/hypoxiaShould this be performed [...] MDReport Verified Date/Time: 09/2018 21:14:49 Reading Location: [address] Consult Reading Room Electro nically signed by: SADIQ HAINES M.D. on 06/03/2018 09:14 PM FERRITIN 2018-06-03 21:11:00* Test Item Value Reference Range Interpretation Comments FERRITIN (BEAKER) (test code = 361) 1898 ng/mL 5-275 H HEPATITIS B SURFACE [id number] 20:52:00* Test Item Value Reference Range Interpretation Comments HEPATITIS B SURFACE ANTIBODY (BEAKER) (test code = 647) < mIU/mL <8.0 HEPATITIS B SURFACE [id number] 20:51:00* Test Item Value Reference Range Interpretation Comments HEPATITIS B SURFACE ANTIGEN (2) (BEAKER) (test code = 2585) Nonreactive Nonreactive HEPATITIS C [id number] 20:51:00* Test Item Value Reference Range Interpretation Comments HEPATITIS C ANTIBODY (BEAKER) (test code = 367) Nonreactive Nonrea ctive HEPATITIS B CORE ANTIBODY, [id number] 20:51:00* Test Item Value Reference Range Interpretation Comments HEPATITIS B CORE TOTAL ANTIBODY (BEAKER) (test code = 497) N onreactive Nonreactive [id number] 20:48:00* Test Item Value Reference Range Interpretation Comments MAGNESIUM (BEAKER) (test code = 627) 1.9 mg/dL 1.6-2.6 BASIC METABOLIC [id number] 20:48:00* Test Item Value Reference Range Interpretation [...] DIALYSIS PATIENTS. Specimen markedly ictericHEPATITIS A ANTIBODY, [id number] 20:45:00* Test Item Value Reference Range Interpretation Comments HEPATITIS A IGG ANTIBODY (BEAKER) (test code = 2797) Reactive N onreactive A ALPHA FETOPROTEIN (AFP), TUMOR [id number] 20:44:00* Test Item Value Reference Range Interpretation Comments ALPHA-FETOPROTEIN (BEAKER) (test code = 1094) 6.3 ng/mL <10.0 HEPATITIS B CORE ANTIBODY, [id number] 20:44:00* Test Item Value Reference Range Interpretation Comments HEPATITIS B CORE IGM ANTIBODY (BEAKER) (test code = 645) Non reactive Nonreactive HEPATITIS A ANTIBODY, [id number] 20:44:00* Test Item Value Reference Range Interpretation [...] 2590) 40 % 20-5 5 BLOOD GAS, [id number] 20:25:00* Test Item Value Reference Range Interpretation [...] 1819) 100.0 % SPUTUM CULTURE + GRAM [id number] 19:38:00* Test Item Value Reference Range Interpretation Comments CULTURE (BEAKER) (test code = 1095) <1+ Normal respiratory chase pr esent GRAM STAIN RESULT (BEAKER) (test code = 1123) 1+ White blood cells seen GRAM STAIN RESULT (BEAKER) (test code = 32818) 0-5 epithelial cells GRAM STAIN RESULT (BEAKER) (test code = 14711) <1+ gram negative ro ds URINALYSIS W/ REFLEX URINE [id number] 18:20:00* Test Item Value Reference Range Interpretation [...] SOURCE(BEAKER) (test code = 2795) BLOOD GAS, [id number] 17:17:00* Test Item Value Reference Range Interpretation [...] (BEAKER) (test code = 1819) 60.0 % YEDUV-7-[id number] 16:17:00* Test Item Value Reference Range Interpretation Comments ALPHA-1 ANTITRYPSIN (BEAKER) (test code = 502) > mg/dL 90.00-2 00.00 H [id number] 14:26:00* Test Item Value Reference Range Interpretation Comments MAGNESIUM (BEAKER) (test code = 627) 2.0 mg/dL 1.6-2.6 BASIC METABOLIC [id number] 14:26:00* Test Item Value Reference Range Interpretation [...] FOR DIALYSIS PATIENTS. Specimen markedly ictericBLOOD GAS, [id number] 13:25:00* Test Item Value Reference Range Interpretation [...] code = 1819) 40.0 % VANCOMYCIN LEVEL, [id number] 11:06:00* Test Item Value Reference Range Interpretation Comments VANCOMYCIN TROUGH (BEAKER) (test code = 522) 45.6 ug/mL 10.0-20.0 HH BLOOD GAS, [id number] 09:54:00* Test Item Value Reference Range Interpretation [...] 40.0 % RAD, CHEST, 1 VIEW, NON [id number] 05:04:00Reason for exam:->ARDSFINAL REPORT Chest one view. [...] Ceballos Verified Date/Time: 06/03/2018 05:04:55 Reading Location: [address] Body Reading Room REHENSIVE METABOLIC [...] 700) 405 pg/mL 0-100 H LACTIC ACID, [id number] 04:01:00* Test Item Value Reference Range Interpretation Comments LACTATE BLOOD ARTERIAL (2) (BEAKER) (test code = 2874) 0.7 mmol/L 0.5-2.2 Specimen moderately ictericCBC W/PLT COUNT & AUTO [id number] 03:57:00* Test Item Value Reference Range Interpretation [...] code = 2801) 3 % 0-1 H [id number] 03:48:00* Test Item Value Reference Range Interpretation Comments FIBRINOGEN LEVEL (BEAKER) (test code = 658) 644 mg/dl 225-434 H PT/[id number] 03:48:00* Test Item Value Reference Range Interpretation [...] pat ients with mechanical heart valves.BLOOD GAS, [id number] 03:36:00* Test Item Value Reference Range Interpretation [...] (test code = 1819) 40.0 % POCT-GLUCOSE [id number] 02:21:00* Test Item Value Reference Range Interpretation Comments POC-GLUCOSE METER (BEAKER) (test code = 1538) 225 mg/dL 70-110 H TESTED AT [facility] [address] [facility] [address] [id number] 21:48:00* Test Item Value Reference Range Interpretation Comments MAGNESIUM (BEAKER) (test code = 627) 2.2 mg/dL 1.6-2.6 BASIC METABOLIC [id number] 21:48:00* Test Item Value Reference Range Interpretation [...] NOT APPLICABLE FOR DIALYSIS PATIENTS. Specimen markedly [id number] 17:35:00* Test Item Value Reference Range Interpretation Comments MAGNESIUM (BEAKER) (test code = 627) 2.8 mg/dL 1.6-2.6 H Specimen moderately hemolyzed [id number] 17:35:00* Test Item Value Reference Range Interpretation Comments POTASSIUM (BEAKER) (test code = 379) 4.5 meq/L 3.5-5.1 Specimen moderately hemolyzed [id number] 15:15:00* Test Item Value Reference Range Interpretation Comments PROCALCITONIN (BEAKER) (test code = 3036) 1.58 ng/mL <0.05 H SEPSIS RISK (ng/mL)Low: 0.05-0.50Intermediate: 0.51-2.00High: > =2.01B-TYPE NATRIURETIC FACTOR (BNP)2018-06-02 14:09:00* Test Item Value Reference Range Interpretation Comments B-TYPE NATRIURETIC PEPTIDE (BEAKER) (test code = 700) 286 pg/mL 0-100 H [id number] 13:51:00* Test Item Value Reference Range Interpretation Comments PARTIAL THROMBOPLASTIN TIME (BEAKER) (test code = 760) 42.9 seconds 22.5-36.0 H PROTHROMBIN TIME/[id number] 13:50:00* Test Item Value Reference Range Interpretation [...] pat ients with mechanical heart valves.BLOOD GAS, [id number] 13:33:00* Test Item Value Reference Range Interpretation [...] (test code = 1819) 40.0 % GLUCOSE-STAT [id number] 13:33:00* Test Item Value Reference Range Interpretation Comments GLUCOSE RANDOM (BEAKER) (test code = 652) 174 mg/dL 70-110 H TSH/FREE T4 IF [id number] 07:15:00* Test Item Value Reference Range Interpretation Comments THYROID STIMULATING HORMONE (BEAKER) (test code = 772) 1.76 uIU/mL 0.35-4.94 COMPREHENSIVE METABOLIC [id number] 03:52:00* Test Item Value Reference Range Interpretation [...] Specimen markedly ictericRAD, CHEST, 1 VIEW, NON [id number] 03:35:00Reason for exam:->ARDSFINAL REPORT Chest one view. [...] C[place] Verified Date/Time: 06/02/2018 03:35:13 Reading Location: [address] Body Reading Room /[id number] 03:12:00* Test Item Value Reference Range Interpretation [...] 2.5-3.5 for pat ients with mechanical heart valves.[id number] 03:03:00* Test Item Value Reference Range Interpretation Comments FIBRINOGEN LEVEL (BEAKER) (test code = 658) 695 mg/dl 225-434 H LACTIC ACID, [id number] 03:02:00* Test Item Value Reference Range Interpretation Comments LACTATE BLOOD ARTERIAL (2) (BEAKER) (test code = 2874) 0.7 mmol/L 0.5-2.2 Specimen markedly ictericCBC W/PLT COUNT & AUTO [id number] 02:53:00 * Test Item Value Reference Range [...] 2801) 2 % 0-1 H BLOOD GAS, [id number] 02:53:00* Test Item Value Reference Range Interpretation [...] code = 1819) 60.0 % BLOOD GAS, [id number] 00:24:00* Test Item Value Reference Range Interpretation [...] code = 1819) 60.0 % BASIC METABOLIC [id number] 17:38:00* Test Item Value Reference Range Interpretation [...] FOR DIALYSIS PATIENTS. Specimen markedly ictericBLOOD GAS, [id number] 17:10:00* Test Item Value Reference Range Interpretation [...] (test code = 1819) 60.0 % Blood [id number] 17:08:00* Test Item Value Reference Range Interpretation Comments Blood Culture (test code = 99758308) NO GROWTH AFTER 5 DAYS, FINAL REPORT [facility], ABDOMINAL, [id number] 15:11:00Abdomen limited area? Add comment if clarification [...] MDReport Verified Date/Time: 06/01/2018 15:11:50 Reading Location: [address] Consult Reading Room A GLUTAMYL TRANSFERASE (GGT) 2018-06-01 14:41:00* Test Item Value Reference Range Interpretation Comments GAMMA GLUTAMYL TRANSFERASE (BEAKER) (test code = 364) 136 U/L 9-64 H Specimen markedly ictericBLOOD GAS, [id number] 14:18:00* Test Item Value Reference Range Interpretation [...] = 1819) 60.0 % CT, CHEST, WITHOUT [id number] 13:38:00FINAL REPORT TECHNIQUE: CT of the chest, [...] rt Verified Date/Time: 06/01/2018 13:38:09 Reading Location: [facility] C013X Ortho Consult Reading Room Electronically signed by: KYLE RAE MD on 07/2018 01:[address], [id number] 13:38:00FINAL REPORT TECHNIQUE: CT of the chest, [...] rt Verified Date/Time: 06/01/2018 13:38:09 Reading Location: [address] Ortho Consult Reading Room Electronically signed by: KYLE RAE MD on 07/2018 01:[address], BRAIN, WITHOUT [id number] 13:10:00FINAL REPORT CT, BRAIN, WITHOUT CONTRAST CLINICAL [...] for further characterization. Signed: Chrissy ennis JR, Angelic MENDOZAeport Verified Date/Time: 06/01/2018 13:10:29 Reading Lo cation: [facility] B1 C013V Neuro Reading Room D GAS, [id number] 11:45:00* Test Item Value Reference Range Interpretation [...] 1819) 80.0 % URINALYSIS W/ REFLEX URINE [id number] 11:13:00* Test Item Value Reference Range Interpretation [...] 1414) 16.4 % 0.0-5.0 H COMPREHENSIVE METABOLIC [id number] 10:13:00* Test Item Value Reference Range Interpretation [...] 248 U/L 125-2 20 H HEPATIC FUNCTION [id number] 09:21:00* Test Item Value Reference Range Interpretation [...] = 347) 32 U/L 6-55 Specimen markedly [id number] 09:20:00* Test Item Value Reference Range Interpretation Comments FIBRINOGEN LEVEL (BEAKER) (test code = 658) 729 mg/dl 225-434 H PT/[id number] 09:20:00* Test Item Value Reference Range Interpretation [...] 2.5-3.5 for pat ients with mechanical heart valves.[id number] 09:20:00* Test Item Value Reference Range Interpretation Comments PHOSPHORUS (BEAKER) (test code = 604) 3.9 mg/dL 2.3-4.7 [id number] 09:20:00* Test Item Value Reference Range Interpretation Comments MAGNESIUM (BEAKER) (test code = 627) 2.3 mg/dL 1.6-2.6 LACTIC ACID, [id number] 09:17:00* Test Item Value Reference Range Interpretation Comments LACTATE BLOOD ARTERIAL (2) (BEAKER) (test code = 2874) 0.7 mmol/L 0.5-2.2 Specimen markedly ictericCBC W/PLT COUNT & AUTO [id number] 09:13:00 * Test Item Value Reference Range [...] 2801) 3 % 0-1 H OXYGEN SATURATION, [id number] 09:07:00* Test Item Value Reference Range Interpretation Comments O2 SATURATION (MEASURED) (BEAKER) (test code = 1455) 80.9 % CALCIUM, [id number] 09:06:00* Test Item Value Reference Range Interpretation Comments CALCIUM IONIZED (BEAKER) (test code = 698) 1.01 mmol/L 1.12-1.27 L PH, BLOOD (BEAKER) (test code = 1810) 7.40 BLOOD GAS, [id number] 09:05:00* Test Item Value Reference Range Interpretation [...] code = 1819) 100.0 % SODIUM NA-STAT [id number] 09:05:00* Test Item Value Reference Range Interpretation Comments SODIUM (BEAKER) (test code = 381) 127 meq/L 135-148 L GLUCOSE-STAT [id number] 09:05:00* Test Item Value Reference Range Interpretation Comments GLUCOSE RANDOM (BEAKER) (test code = 652) 181 mg/dL 70-110 H HGB/HCT (H&H) - STAT [id number] 09:05:00* Test Item Value Reference Range Interpretation Comments HEMOGLOBIN (BEAKER) (test code = 410) 10.4 g/dL 13.0-16.8 L HEMATOCRIT (BEAKER) (test code = 411) 31.0 % 40.0-50.0 L POTASSIUM-STAT [id number] 09:02:00* Test Item Value Reference Range Interpretation Comments POTASSIUM (BEAKER) (test code = 379) 4.6 meq/L 3.6-5.5 RAD, CHEST, 1 VIEW, NON [id number] 08:51:00Reason for exam:->ARFShould this be performed at [...] contours are obscured.Additional findings: None. Signed: JR Linda, Angelic Gross Verified Date/Time: 06/01/2018 08:51:32 Reading Location: [facility] C013V Neuro Reading Room D GAS, [id number] 08:32:00* Test Item Value Reference Range Interpretation [...] code = 1819) 100.0 % SODIUM NA-STAT [id number] 08:32:00* Test Item Value Reference Range Interpretation Comments SODIUM (BEAKER) (test code = 381) 127 meq/L 135-148 L GLUCOSE-STAT [id number] 08:32:00* Test Item Value Reference Range Interpretation Comments GLUCOSE RANDOM (BEAKER) (test code = 652) 171 mg/dL 70-110 H HGB/HCT (H&H) - STAT [id number] 08:32:00* Test Item Value Reference Range Interpretation Comments HEMOGLOBIN (BEAKER) (test code = 410) 10.5 g/dL 13.0-16.8 L HEMATOCRIT (BEAKER) (test code = 411) 31.0 % 40.0-50.0 L CALCIUM, [id number] 08:32:00* Test Item Value Reference Range Interpretation Comments CALCIUM IONIZED (BEAKER) (test code = 698) 1.00 mmol/L 1.12-1.27 L PH, BLOOD (BEAKER) (test code = 1810) 7.43 POTASSIUM-STAT [id number] 08:30:00* Test Item Value Reference Range Interpretation Comments POTASSIUM (BEAKER) (test code = 379) 5.4 meq/L 3.6-5.5 Sodium [id number] 03:33:00* Test Item Value Reference Range Interpretation Comments Sodium Level (test code = 2951-2) 130 136-145 L [facility] HospitalPotassium Kvntr6215-53-20 03:33:00* Test Item Value Reference Range Interpretation Comments Potassium Level (test code = 2823-3) 5.1 3.5-5.1 SPECIMEN SLIGHTLY ICTERICStarr County Memorial HospitalChloride Level 2018-06-01 03:33:00* Test Item Value Reference Range Interpretation Comments Chloride Level (test code = 2075-0) 93 98-107 L [facility] HospitalCarbon Dioxide [id number] 03:33:00* Test Item Value Reference Range Interpretation Comments Carbon Dioxide Level (test code = 2028-9) 25 22-29 [facility] HospitalAnion [id number] 03:33:00* Test Item Value Reference Range Interpretation Comments Anion Gap (test code = 77409-6) 17.1 8-16 H [facility] HospitalBlood Urea Etlraset8891-60-71 03:33:00* Test Item Value Reference Range Interpretation Comments Blood Urea Nitrogen (test code = 3094-0) 25 7-26 VERIFIED PREVIOUS RESULTSStarr County Memorial HospitalCreatinine 2018-06-01 03:33:00* Test Item Value Reference Range Interpretation Comments Creatinine (test code = 2160-0) 1.47 0.72-1.25 H [facility] HospitalBUN/Creatinine Myrkr5333-30-63 03:33:00* Test Item Value Reference Range Interpretation Comments BUN/Creatinine Ratio (test code = 3097-3) 17 6-25 [facility] HospitalEstimat Glomerular Filtration Rate 2018-06-01 03:33:00* Test Item Value Reference Range Interpretation Comments Estimat Glomerular Filtration Rate (test code = 721982598) 53 >60 L Ranges were taken from the National Kidney Disease Education Program and the Eri ional [employer] literature.Reference ranges:60 or greater: Lioebx03-09 ( for 3 consecutive months): Chronic kidney disease 15 or less: Kidney failureStarr County Memorial HospitalGlucose Pfbpe8892-01-95 03:33:00* Test Item Value Reference Range Interpretation Comments Glucose Level (test code = CBO3031) 160 74-118 H [facility] HospitalCalcium Foaed4978-19-56 03:33:00* Test Item Value Reference Range Interpretation Comments Calcium Level (test code = 47982-7) 8.1 8.4-10.2 L [facility] HospitalMagnesium Hluey1241-27-27 03:33:00* Test Item Value Reference Range Interpretation Comments Magnesium Level (test code = 87855-8) 2.3 1.3-2.1 H [facility] HospitalMagnesium Idmlc2374-10-77 03:33:00* Test Item Value Reference Range Interpretation Comments Magnesium Level (test code = 42719-2) 2.3 1.3-2.1 H [facility] HospitalWhite Blood Fduor3173-24-44 03:21:00* Test Item Value Reference Range Interpretation Comments White Blood Count (test code = 6690-2) 20.59 4.8-10.8 H [facility] HospitalRed Blood Mwigb4444-50-39 03:21:00* Test Item Value Reference Range Interpretation Comments Red Blood Count (test code = 789-8) 2.65 4.3-5.7 L [facility] HospitalHemoglobin2019-04-06 03:21:00* Test Item Value Reference Range Interpretation Comments Hemoglobin (test code = 51041-4) 9.6 14.0-18.0 L [facility] HospitalHematocrit2019-04-06 03:21:00* Test Item Value Reference Range Interpretation Comments Hematocrit (test code = 4544-3) 29.1 38.2-49.6 L [facility] HospitalMean Corpuscular Ojtyxf4267-83-37 03:21:00* Test Item Value Reference Range Interpretation Comments Mean Corpuscular Volume (test code = 787-2) 109.8 81-99 H [facility] HospitalMean Corpuscular Fokybqypku8563-04-11 03:21:00* Test Item Value Reference Range Interpretation Comments Mean Corpuscular Hemoglobin (test code = 785-6) 36.2 28-32 H [facility] HospitalMean Corpuscular Hemoglobin Concent 2018-06-01 03:21:00* Test Item Value Reference Range Interpretation Comments Mean Corpuscular Hemoglobin Concent (test code = 786-4) 33.0 31-35 [facility] HospitalRed Cell Distribution Btbuk2459-03-14 03:21:00* Test Item Value Reference Range Interpretation Comments Red Cell Distribution Width (test code = 48990-7) 13.3 11.7 -14.4 [facility] HospitalPlatelet Xetdb5067-12-27 03:21:00* Test Item Value Reference Range Interpretation Comments Platelet Count (test code = 777-3) 321 140-360 [facility] HospitalNeutrophils (%) (Auto)2018-06-01 03:21:00 * Test Item Value Reference Range Interpretation Comments Neutrophils (%) (Auto) (test code = 55089-5) 91.1 38.7-80.0 H [facility] HospitalLymphocytes (%) (Auto)2018-06-01 03:21:00 * Test Item Value Reference Range Interpretation Comments Lymphocytes (%) (Auto) (test code = 736-9) 3.4 18.0-39.1 L [facility] HospitalMonocytes (%) (Auto)2018-06-01 03:21:00* Test Item Value Reference Range Interpretation Comments Monocytes (%) (Auto) (test code = 5905-5) 2.9 4.4-11.3 L [facility] HospitalEosinophils (%) (Auto)2018-06-01 03:21:00 * Test Item Value Reference Range Interpretation Comments Eosinophils (%) (Auto) (test code = 713-8) 0.0 0.0-6.0 [facility] HospitalBasophils (%) (Auto)2018-06-01 03:21:00* Test Item Value Reference Range Interpretation Comments Basophils (%) (Auto) (test code = 706-2) 0.2 0.0-1.0 [facility] HospitalIM GRANULOCYTES %2018-06-01 03:21:00* Test Item Value Reference Range Interpretation Comments IM GRANULOCYTES % (test code = IM GRANULOCYTES %) 2.4 0.0- 1.0 H [facility] HospitalNeutrophils # (Auto)2018-06-01 03:21:00* Test Item Value Reference Range Interpretation Comments Neutrophils # (Auto) (test code = 751-8) 18.8 2.1-6.9 H [facility] HospitalLymphocytes # (Auto)2018-06-01 03:21:00* Test Item Value Reference Range Interpretation Comments Lymphocytes # (Auto) (test code = 74790-5) 0.7 1.0-3.2 L [facility] HospitalMonocytes # (Auto)2018-06-01 03:21:00* Test Item Value Reference Range Interpretation Comments Monocytes # (Auto) (test code = 742-7) 0.6 0.2-0.8 [facility] HospitalEosinophils # (Auto)2018-06-01 03:21:00* Test Item Value Reference Range Interpretation Comments Eosinophils # (Auto) (test code = 711-2) 0.0 0.0-0.4 [facility] HospitalBasophils # (Auto)2018-06-01 03:21:00* Test Item Value Reference Range Interpretation Comments Basophils # (Auto) (test code = 704-7) 0.1 0.0-0.1 [facility] HospitalAbsolute Immature Granulocyte (auto 2018-06-01 03:21:00* Test Item Value Reference Range Interpretation Comments Absolute Immature Granulocyte (auto (doug t code = Absolute Immature Granulocyte (auto) 0.49 0-0.1 H [facility] HospitalArterial Blood [id number] 00:17:00* Test Item Value Reference Range Interpretation Comments Arterial Blood pH (test code = 2744-1) 7.34 7.31-7.41 [facility] HospitalArterial Blood Partial Pressure CO2 2018-06-01 00:17:00* Test Item Value Reference Range Interpretation Comments Arterial Blood Partial Pressure CO2 (test code = 2018-8) 49 41-51 [facility] HospitalArterial Blood Partial Pressure O2 2018-06-01 00:17:00* Test Item Value Reference Range Interpretation Comments Arterial Blood Partial Pressure O2 (test code = 2018-09) 77 80-105 L [facility] Blood [id number] 00:17:00* Test Item Value Reference Range Interpretation Comments Arterial Blood HCO3 (test code = 1960-4) 27 23-28 [facility] HospitalArterial Blood Base Yppwgq4773-40-54 00:17:00* Test Item Value Reference Range Interpretation Comments Arterial Blood Base Excess (test code = 1925-7) 1.0 -2-3 [facility] HospitalArterial Blood Oxygen Saturation 2018-06-01 00:17:00* Test Item Value Reference Range Interpretation Comments Arterial Blood Oxygen Saturation (test code = 2708-6) 94.0 95-98 L [facility] HospitalFiO22019-04-06 00:17:00* Test Item Value Reference Range Interpretation Comments FiO2 (test code = FiO2) 85 PT. ON PRVC 16, 440 +12 85[facility] [facility] zZ0892-93-14 00:17:00* Test Item Value Reference Range Interpretation Comments Arterial Blood pH (test code = 2744-1) 7.34 7.31-7.41 [facility] Partial Pressure CO2 2018-06-01 00:17:00* Test Item Value Reference Range Interpretation Comments Arterial Blood Partial Pressure CO2 (test code = 2018-09) 49 41-51 [facility]Ar[facility] Partial Pressure O2 2018-06-01 00:17:00* Test Item Value Reference Range Interpretation Comments Arterial Blood Partial Pressure O2 (test code = 2018-09) 77 80-105 [facility] RLD59182-92-02 00:17:00* Test Item Value Reference Range Interpretation Comments Arterial Blood HCO3 (test code = 1960-4) 27 23-28 [facility] HospitalAr[facility] Blood Base Mdrtcb8712-60-46 00:17:00* Test Item Value Reference Range Interpretation Comments Arterial Blood Base Excess (test code = 1925-7) 1.0 -2-3 [facility] Oxygen Saturation 2018-06-01 00:17:00* Test Item Value Reference Range Interpretation Comments Arterial Blood Oxygen Saturation (test code = 2708-6) 94.0 95-98 L [facility] HospitalFiO22019-04-06 00:17:00* Test Item Value Reference Range Interpretation Comments FiO2 (test code = FiO2) 85 PT. ON PRVC 16, 440 +12 85[facility] HospitalCT CHEST W 2018-05-31 15:20:00 [facility] [address] [address] Patient Name: INDRA GALVAN MR #: [id number] : 1980 Age/Sex: 37/M Req #: [id number] Adm Physician: KIET DUMAS MD Ordered by: DAVID HORTON Report #: [id number] Location: ICU Room/Bed: [address] [address] Procedure: 13 CT/CT CHEST W Exam Date: 05/31/18 Exam Time: 1430 REPORT STATUS: Signed CT chest pulmonary embolism protocol CPT code: 31642 INDICATION: Intubated, ev aluate for pulmonary embolus; suspected infection f/u [id number] TECHNIQUE: Thin collimation axial images obtained [...] set by the Radiation Protocol Committe e (RP). Dose reduction techniques used: Automated exposure control, [...] 05/31/181536 COPY TO: DAVID HORTON Hepatitis Be Szhhiqkl0821-85-98 08:40:00* Test Item Value Reference Range Interpretation Comments Hepatitis Be Antibody (test code = 98603-0) Negative Negative Performed at: [facility] [id number] Care Management Assistant: Esdras Lemon MD, Phone: [phone] County Memorial HospitalHepatitis Be Oddujbmu5288-25-05 08:40:00* Test Item Value Reference Range Interpretation Comments Hepatitis Be Antibody (test code = 93159-4) Negative Negative Performed at: [facility] [id number] Care Management Assistant: Esdras Lemon MD, Phone: [phone] County Memorial HospitalHIV-1 RNA, Quantitative copies/hP3644-15-49 08:39:00* Test Item Value Reference Range Interpretation Comments HIV-1 RNA, Quantitative copies/mL (test code = 16616-4) <20 . HIV-1 RNA not detectedThe reportable range for this assay is 20 to 10,000,000cop ies HIV-1 RNA/mL.[facility] HospitalHIV-1 RNA, Quantitative copies/pW6638-13-22 08:39:00* Test Item Value Reference Range Interpretation Comments HIV-1 RNA, Quantitative copies/mL (test code = 72979-0) <20 . HIV-1 RNA not detectedThe reportable range for this assay is 20 to 10,000,000cop ies HIV-1 RNA/mL.[facility] HospitalDifferential Total Cells Fromlck5758-57-01 07:07:00* Test Item Value Reference Range Interpretation Comments Differential Total Cells Counted (test code = Differgibran tial Total Cells Counted) 100 [facility] HospitalNeutrophils % (Manual)2018-05-31 07:07:00 * Test Item Value Reference Range Interpretation Comments Neutrophils % (Manual) (test code = 51462-8) 84 40-74 H [facility] HospitalLymphocytes % (Manual)2018-05-31 07:07:00 * Test Item Value Reference Range Interpretation Comments Lymphocytes % (Manual) (test code = 737-7) 3 19-48 L [facility] HospitalMonocytes % (Manual)2018-05-31 07:07:00* Test Item Value Reference Range Interpretation Comments Monocytes % (Manual) (test code = 744-3) 10 3.4-9.0 H [facility] HospitalEosinophils % (Manual)2018-05-31 07:07:00 * Test Item Value Reference Range Interpretation Comments Eosinophils % (Manual) (test code = 714-6) 3 0-7 [facility] HospitalPlatelet Atajaqny3101-00-15 07:07:00* Test Item Value Reference Range Interpretation Comments Platelet Estimate (test code = 84291-8) ADEQUATE [facility] HospitalPlatelet Morphology Mbiafhc7813-58-50 07:07:00* Test Item Value Reference Range Interpretation Comments Platelet Morphology Comment (test code = 74018-4) NORMAL [facility] HospitalHypochromasia2019-04-05 07:07:00* Test Item Value Reference Range Interpretation Comments Hypochromasia (test code = 728-6) SLIGHT [facility] HospitalAnisocytosis2019-04-05 07:07:00* Test Item Value Reference Range Interpretation Comments Anisocytosis (test code = 702-1) MODERATE [facility] HospitalMacrocytosis2019-04-05 07:07:00* Test Item Value Reference Range Interpretation Comments Macrocytosis (test code = 738-5) MODERATE [facility] HospitalRed Cell Morphology Vkowxvk2119-82-61 07:07:00* Test Item Value Reference Range Interpretation Comments Red Cell Morphology Comment (test code = 6742-1) ABNORMAL [facility] HospitalDifferential Total Cells Counted 2018-05-31 07:07:00* Test Item Value Reference Range Interpretation Comments Differential Total Cells Counted (test code = Differgibran tial Total Cells Counted) 100 [facility] HospitalNeutrophils % (Manual)2018-05-31 07:07:00 * Test Item Value Reference Range Interpretation Comments Neutrophils % (Manual) (test code = 95483-8) 84 40-74 H [facility] HospitalLymphocytes % (Manual)2018-05-31 07:07:00 * Test Item Value Reference Range Interpretation Comments Lymphocytes % (Manual) (test code = 737-7) 3 19-48 L [facility] HospitalMonocytes % (Manual)2018-05-31 07:07:00* Test Item Value Reference Range Interpretation Comments Monocytes % (Manual) (test code = 744-3) 10 3.4-9.0 H [facility] HospitalEosinophils % (Manual)2018-05-31 07:07:00 * Test Item Value Reference Range Interpretation Comments Eosinophils % (Manual) (test code = 714-6) 3 0-7 [facility] HospitalPlatelet Ngiinzny1813-16-96 07:07:00* Test Item Value Reference Range Interpretation Comments Platelet Estimate (test code = 17293-6) ADEQUATE [facility] HospitalPlatelet Morphology Hmsqffs5660-08-05 07:07:00* Test Item Value Reference Range Interpretation Comments Platelet Morphology Comment (test code = 10498-0) NORMAL [facility] HospitalHypochromasia2019-04-05 07:07:00* Test Item Value Reference Range Interpretation Comments Hypochromasia (test code = 728-6) SLIGHT [facility] HospitalAnisocytosis2019-04-05 07:07:00* Test Item Value Reference Range Interpretation Comments Anisocytosis (test code = 702-1) MODERATE [facility] HospitalMacrocytosis2019-04-05 07:07:00* Test Item Value Reference Range Interpretation Comments Macrocytosis (test code = 738-5) MODERATE [facility] HospitalRed Cell Morphology Vvlonis5422-15-56 07:07:00* Test Item Value Reference Range Interpretation Comments Red Cell Morphology Comment (test code = 6742-1) ABNORMAL [facility] HospitalTotal Emslluneu6375-05-59 06:43:00* Test Item Value Reference Range Interpretation Comments Total Bilirubin (test code = 1975-2) 17.5 0.2-1.2 H [facility] HospitalAspartate Amino Transf (AST/SGOT) 2018-05-31 06:43:00* Test Item Value Reference Range Interpretation Comments Aspartate Amino Transf (AST/SGOT) (test code = Aspartate Amino Transf (AST/SGOT)) 97 5-34 H [facility] HospitalAlanine Aminotransferase (ALT/SGPT) 2018-05-31 06:43:00* Test Item Value Reference Range Interpretation Comments Alanine Aminotransferase (ALT/SGPT) (test code = 1742-6) 28 0-55 [facility] HospitalTotal Kromptj7708-88-52 06:43:00* Test Item Value Reference Range Interpretation Comments Total Protein (test code = 2885-2) 6.1 6.5-8.1 L [facility] HospitalAlbumin2019-04-05 06:43:00* Test Item Value Reference Range Interpretation Comments Albumin (test code = 1751-7) 1.7 3.5-5.0 L [facility] HospitalGlobulin2019-04-05 06:43:00* Test Item Value Reference Range Interpretation Comments Globulin (test code = 23741-7) 4.4 2.3-3.5 H [facility] HospitalAlbumin/Globulin Ndhei7451-55-19 06:43:00 * Test Item Value Reference Range Interpretation Comments Albumin/Globulin Ratio (test code = 1759-0) 0.4 0.8-2.0 L [facility] HospitalAlkaline Qfsgkjzugey5816-02-59 06:43:00* Test Item Value Reference Range Interpretation Comments Alkaline Phosphatase (test code = 6768-6) 149 40-150 [facility] HospitalCHEST SINGLE (PORTABLE)2018-05-31 05:31:00 [facility] [address] [place] [address] Patient Name: INDRA GALVAN MR #: [id number] : 1980 Age/Sex: 37/M Req #: [id number] Adm Physician: KIET DUMAS MD Ordered by: MANDEEP MARIE MD Report #: [id number] Location: ICU Room/Bed: ICU [facility] Procedure: 0405-000 3 DX/CHEST SINGLE (PORTABLE) Exam Date: 05/31/18 Anjana m Time: 0455 REPORT STATUS: Signed Examination: Single [...] 05/31/18531 COPY TO: MANDEEP MARIE MD Urine Ygtthlmthu5669-56-76 01:57:00* Test Item Value Reference Range Interpretation Comments Urine Osmolality (test code = 2695-5) 353 . 24 hr : 300 - 900 Random: 50 - 1400 After 12hr fluid restriction: >850Performed at: [facility] [address] [id number] Director: Alli Georges MD, Phone: [phone] County Memorial HospitalUrine Osmolality 2018-05-31 01:57:00* Test Item Value Reference Range Interpretation Comments Urine Osmolality (test code = 2695-5) 353 . 24 hr : 300 - 900 Random: 50 - 1400 After 12hr fluid restriction: >850Performed at: [facility] [address] [id number] Director: Alli Georges MD, Phone: [phone] County Memorial HospitalIR XPHVSJY1484-95-45 17:22:[address] [address] Patient Name: INDRA GALVAN MR #: [id number] : 1980 Age/Sex: 37/M Req #: [id number] Adm Physician: KIET DUMAS MD Ordered by: MANDEEP MARIE MD Report #: [id number] Location: ICU Room/Bed: ICU [facility] Procedure: 0404-004 8 DX/IR CONSULT Exam [...] a 0.018 " skinny wire. A 5 Australian micropuncture sheat h was then placed and through the micropuncture sheath a 0.035 " Amplatz super stiff wire placed centrally. Dilatation with a 7 Australian Rajesh dilator was a ccomplished. A 7 Australian Arrow triple-lumen 20 cm long central line was then pl aced over the Amplatz wire. Each lumen was flushed with saline. Catheter se cured to the skin with 3-0 Ethilon. Post procedure chest x-ray was ordere d. Impression: Successful placement of a triple-lumen central line. Signed by: Dr. Kandi Anand DO on 05/30/2018 5:31 PM Dictated By: Randall ANAND DO 1731 Tr anscribed By: CATERINA on 05/30/18 173 COPY TO: MANDEEP MARIE MD NON-TUNNELLED CVC CATH JSCRPGC9739-69-14 17:22:[address] [address] Patient Name: INDRA GALVAN MR #: [id number] : 1980 Age/Sex: 37/M Req #: [id number] Adm Physician: KEIT DUMAS MD Ordered by: MANDEEP MARIE MD Report #: [id number] Location: ICU Room/Bed: ICU [facility] Procedure: 0404-000 3 IR/NON-TUNNELLED CVC CATH [...] 0.018 " skinny wire . A 5 Australian micropuncture sheath was then placed and through the micropunctur e sheath a 0.035 " Amplatz superstiff wire placed centrally. Dilatation with a 7 Australian Rajesh dilator was accomplished. A 7 Australian Arrow triple-lumen 20 cm long central line was then placed over the Amplatz wire. Each lumen was flushed with saline. Catheter secured to the skin with 3-0 Ethilon. Post procedure chest x-ray was ordered. Impression: Successful placement of a triple-lumen central line. Signed by: Dr. Kandi Anand DO on 05/31/19 19 5:31 PM Dictated By: KANDI ANAND DO 173 Transcribed By: CATERINA on 05/30/18 173 NURSERY HELPER Y TO: MANDEEP MARIE MD US GUIDANCE FOR VASCULAR DIOZX5148-94-69 17:22:[address] [address] Patient Name: INDRA GALVAN MR #: [id number] : 1980 Age/Sex: 37/M Req #: [id number] Adm Physician: KIET DUMAS MD Ordered by: MANDEEP MARIE MD Report #: [id number] Location: ICU Room/Bed: ICU 190 Procedure: 0404-001 8 US/US GUIDANCE FOR VASCULAR [...] 0.018 " skinny wire . A 5 Australian micropuncture sheath was then placed and through the micropunctur e sheath a 0.035 " Amplatz superstiff wire placed centrally. Dilatation with a 7 Australian Rajesh dilator was accomplished. A 7 Australian Arrow triple-lumen 20 cm long central line was then placed over the Amplatz wire. Each lumen was flushed with saline. Catheter secured to the skin with 3-0 Ethilon. Post procedure chest x-ray was ordered. Impression: Successful placement of a triple-lumen central line. Signed by: Dr. Kandi Anand DO on 05/31/19 5:31 PM Dictated By: KANDI ANAND DO 173 Transcribed By: CATERINA on 05/30/181730 NURSERY HELPER Y TO: MANDEEP MARIE MD Blood Gwndahj7191-38-54 17:10:00* Test Item Value Reference Range Interpretation Comments Blood Culture (test code = 40857306) NO GROWTH AFTER 72 HOURS [facility] XRAY LINE TFOIIQJFU5600-27-83 15:38:00 [facility] [address] [address] Patient Name: INDRA GALVAN MR #: [id number] : 1980 Age/Sex: 37/M Req #: [id number] Adm Physician: KIET DUMAS MD Ordered by: KANDI ANAND DO Report #: [id number] Location: ICU Room/Bed: ICU [facility] Procedure: [id number] DX/CHEST XRAY LINE PLACEMENT Exam Date: Exam [...] 3:41 PM Dictated By: KANDI ANAND DO 1543 Transcribed By: CATERINA on 05/30/18 1541 COPY TO: KANDI ANAND DO CHEST SINGLE (PORTABLE)2018-05-30 14:49:00 [address], [place], [place] [address] Patient Name: INDRA GALVAN MR #: [id number] : [birth year] Age/Sex: 37/M Req #: [id number] Adm Physician: KIET DUMAS MD Ordered by: MARITZA SANTANA MD Report #: [id number] Location: ICU Room/Bed: ICU [facility] Procedure: 3065-0391 DX/CHEST SINGLE (PORTABLE) Exam Date: 05/30/18 Exam [...] COPY TO: MARITZA SANTANA MD Urine Legionella Bipshmp6485-07-36 12:08:00* Test Item Value Reference Range Interpretation Comments Urine Legionella Antigen (test code = 88169-6) Negative Negativ e Presumptive negative for L. pneumophila serogroup 1 antigenin urine, suggesting no recent or current infection.Legionnaires' disease cannot be ruled out since o therserogroups and species may also cause disease.Performed at: [facility] [address] [place] [id number] Director: Esdras Lemon MD, Phone: [phone] County Memorial HospitalUrine Legionella Irdlcfa5505-69-53 12:08:00* Test Item Value Reference Range Interpretation Comments Urine Legionella Antigen (test code = 29248-9) Negative Negativ e Presumptive negative for L. pneumophila serogroup 1 antigenin urine, suggesting no recent or current infection.Legionnaires' disease cannot be ruled out since o therserogroups and species may also cause disease.Performed at: [facility] [address] [place], [place] [id number] Director: Esdras Lemon MD, Phone: [phone] County Memorial HospitalHepatitis C Muyelqmw9964-57-43 11:20:00* Test Item Value Reference Range Interpretation Comments Hepatitis C Antibody (test code = 07526-6) 0.1 0.0-0.9 Negative: < 0.8 Indeterminate: 0.8 - 0.9 Positive: > 0.9 The CDC recommends that a positive HCV antibody result be followed up with a HCV Nucleic Acid Amplification test (309774).Performed at: [facility] [address] [place] [id number] Director: Alli Georges MD, Phone: [phone] County Memorial HospitalHepatitis C Pxhydppy3026-60-37 11:20:00* Test Item Value Reference Range Interpretation Comments Hepatitis C Antibody (test code = 23689-3) 0.1 0.0-0.9 Negative: < 0.8 Indeterminate: 0.8 - 0.9 Positive: > 0.9 The CDC recommends that a positive HCV antibody result be followed up with a HCV Nucleic Acid Amplification test (765488).Performed at: [facility] [address] [place] [id number] Director: Alli Georges MD, Phone: [phone] County Memorial HospitalUrine EFE2233-68-26 11:03:00* Test Item Value Reference Range Interpretation Comments Urine WBC (test code = 5821-4) 11-20 0-5 H [facility] HospitalUrine IUO0516-50-25 11:03:00* Test Item Value Reference Range Interpretation Comments Urine RBC (test code = 66678-9) NONE 0-5 [facility] HospitalUrine Rygbhnrh3529-88-89 11:03:00* Test Item Value Reference Range Interpretation Comments Urine Bacteria (test code = 97913-6) FEW NONE [facility] HospitalUrine Epithelial Shwey4183-11-97 11:03:00 * Test Item Value Reference Range Interpretation Comments Urine Epithelial Cells (test code = 74525-5) RARE NONE [facility] HospitalUrine Transitional Epithelial Cells 2018-05-30 11:03:00* Test Item Value Reference Range Interpretation Comments Urine Transitional Epithelial Cells (test code = 8249-5) FEW NONE [facility] HospitalUrine Transitional Epithelial Cells 2018-05-30 11:03:00* Test Item Value Reference Range Interpretation Comments Urine Transitional Epithelial Cells (test code = 8249-5) FEW NONE [facility] HospitalUrine Ecjel9504-64-08 10:31:00* Test Item Value Reference Range Interpretation Comments Urine Color (test code = 5778-6) RED YELLOW H [facility] HospitalUrine Ifduktl1618-61-63 10:31:00* Test Item Value Reference Range Interpretation Comments Urine Clarity (test code = 15475-2) SL CLOUDY CLEAR H [facility] HospitalUrine Specific Ncohabc7647-31-67 10:31:00 * Test Item Value Reference Range Interpretation Comments Urine Specific [place] (test code = 5811-5) 1.020 1.010-1.02 5 [facility] HospitalU[facility] zK5648-01-33 10:31:00* Test Item Value Reference Range Interpretation Comments Urine pH (test code = 19573-5) 6 5-7 [facility] HospitalU[facility] Leukocyte Apnvmdix3320-46-83 10:31:00* Test Item Value Reference Range Interpretation Comments Urine Leukocyte Esterase (test code = 5799-2) NEGATIVE NEGATIVE [facility] HospitalUrine Cxwenyc9822-63-99 10:31:00* Test Item Value Reference Range Interpretation Comments Urine Nitrite (test code = 23202-7) POSITIVE NEGATIVE H [facility] HospitalUrine Udzoceb7694-79-24 10:31:00* Test Item Value Reference Range Interpretation Comments Urine Protein (test code = 5804-0) TRACE NEGATIVE H [facility] HospitalUrine Glucose (UA)2018-05-30 10:31:00* Test Item Value Reference Range Interpretation Comments Urine Glucose (UA) (test code = 2349-9) NEGATIVE NEGATIVE [facility] HospitalUrine Lgxqyjj2178-40-32 10:31:00* Test Item Value Reference Range Interpretation Comments Urine Ketones (test code = 50382-3) NEGATIVE NEGATIVE [facility] HospitalUrine Owouhhyjubfn6764-99-00 10:31:00* Test Item Value Reference Range Interpretation Comments Urine Urobilinogen (test code = 78639-2) 1 0.2-1 [facility] HospitalU[facility] Tmlbwdmcu5052-55-35 10:31:00* Test Item Value Reference Range Interpretation Comments Urine Bilirubin (test code = 1978-6) 3+ NEGATIVE H Confirmatory test currently unavailable. False positive results may occur.[facility] HospitalUrine Wducg0072-12-57 10:31:00* Test Item Value Reference Range Interpretation Comments Urine Blood (test code = 75894-4) NEGATIVE NEGATIVE [facility] HospitalFolate2019-04-03 08:07:00* Test Item Value Reference Range Interpretation Comments Folate (test code = 2284-8) 30.1 7.0-15.4 H [facility] HospitalFolate2019-04-03 08:07:00* Test Item Value Reference Range Interpretation Comments Folate (test code = 2284-8) 30.1 7.0-15.4 H [facility] HospitalCHEST SINGLE (PORTABLE)2018-05-29 07:58:00 [address] [address] Patient Name: INDRA GALVAN MR #: [id number] : 1980 Age/Sex: 37/M Req #: [id number] Adm Physician: KIET DUMAS MD Ordered by: KIRT SCHULTZ MD Report #: [id number] Location: MED/SURG3 Room/Bed: [facility] Procedure: [id number] DX /CHEST SINGLE (PORTABLE) Exam Date: 05/29/18 [...] MD 0 Transcribed By: DIONY ROBERTS on 05/29/18 08 COPY TO: KIRT SCHULTZ MD Vitamin B12 Level 2018-05-29 07:19:00* Test Item Value Reference Range Interpretation Comments Vitamin B12 Level (test code = 53535-4) 1700 213-816 H [facility] HospitalVitamin B12 Vhlkn2948-02-09 07:19:00* Test Item Value Reference Range Interpretation Comments Vitamin B12 Level (test code = 95491-2) 1700 213-816 H [facility]2019-04-03 07:07:00* Test Item Value Reference Range Interpretation Comments Iron Level (test code = 2498-4) 61 65-175 L [facility] Iron Binding Hdzbhama1772-90-17 07:07:00* Test Item Value Reference Range Interpretation Comments Total Iron Binding Capacity (test code = 2500-7) 116 261-4 78 L [facility] HospitalPerhol[facility] Iron Mhfcflvibm5700-55-45 07:07:00* Test Item Value Reference Range Interpretation Comments Percent Iron Saturation (test code = 2502-3) 53 15-50 H [facility] HospitalTransferrin2019-04-03 07:07:00* Test Item Value Reference Range Interpretation Comments Transferrin (test code = 3034-6) 83 174-364 L [facility]2019-04-03 07:07:00* Test Item Value Reference Range Interpretation Comments Iron Level (test code = 2498-4) 61 65-175 L [facility] Iron Binding Mhipiina4824-10-02 07:07:00* Test Item Value Reference Range Interpretation Comments Total Iron Binding Capacity (test code = 2500-7) 116 261-4 78 L [facility] Iron Dewmittabm2146-89-26 07:07:00* Test Item Value Reference Range Interpretation Comments Percent Iron Saturation (test code = 2502-3) 53 15-50 H [facility] HospitalTransferrin2019-04-03 07:07:00* Test Item Value Reference Range Interpretation Comments Transferrin (test code = 3034-6) 83 174-364 L [facility] HospitalMyelocytes %2018-05-29 07:06:00* Test Item Value Reference Range Interpretation Comments Myelocytes % (test code = 749-2) 1 0-0 H [facility] HospitalMyelocytes %2018-05-29 07:06:00* Test Item Value Reference Range Interpretation Comments Myelocytes % (test code = 749-2) 1 0-0 H [facility] HospitalPercent Reticulocyte Lslcy0616-27-82 06:26:00* Test Item Value Reference Range Interpretation Comments Percent Reticulocyte Count (test code = 98010-0) 6.4 0.8-2 .2 H [facility] HospitalPercent Reticulocyte Twvhh0660-00-80 06:26:00* Test Item Value Reference Range Interpretation Comments Percent Reticulocyte Count (test code = 64245-0) 6.4 0.8-2 .2 H [facility] Be Tmicxcf4423-07-78 05:14:00* Test Item Value Reference Range Interpretation Comments Hepatitis Be Antigen (test code = 98666-8) Negative Negative [facility] B Core Total Vbwxcxzl5160-12-31 05:14:00* Test Item Value Reference Range Interpretation Comments Hepatitis B Core Total Antibody (test code = 92445-3) Negative Negative Performed at: - [facility] [id number] Director: Alli Georges MD, Phone: [phone] Scott & [facility] B Surface Lqvdhjn3449-06-74 05:14:00* Test Item Value Reference Range Interpretation Comments Hepatitis B Surface Antigen (test code = 5196-1) Negative Negat mumtaz [facility] Be Pxpwxnp3990-82-11 05:14:00* Test Item Value Reference Range Interpretation Comments Hepatitis Be Antigen (test code = 70182-1) Negative Negative [facility] B Core Total Twcwuasn1669-44-02 05:14:00* Test Item Value Reference Range Interpretation Comments Hepatitis B Core Total Antibody (test code = 30910-9) Negative Negative Performed at: - [facility] [id number] Director: Alli Georges MD, Phone: [phone] Scott & White [facility] B Surface Fezydrr2954-13-45 05:14:00* Test Item Value Reference Range Interpretation Comments Hepatitis B Surface Antigen (test code = 5196-1) Negative Negat mumtaz [facility] [id number] 00:09:00* Test Item Value Reference Range Interpretation Comments Prothrombin Time (test code = 5902-2) 15.5 11.9-14.5 H [facility] International Ratio 2018-05-29 00:09:00* Test Item Value Reference Range Interpretation Comments Prothromb Time International Ratio (test code = 6301-6) 1.17 Oral Anticoagulant Therapy INR Values:1. Low Intensity Therapy 1.5 - 2.02 . Moderate Intensity Therapy 2.0 - 3.03. High Intensity Therapy(1) 2.5 - 3. 54. High Intensity Therapy(2) 3.0 - 4.05. Panic Value IN[facility] > 5.0 [facility] [id number] 17:13:00* Test Item Value Reference Range Interpretation Comments HIV (1&2) Antibody (test code = 84383-7) NON-REACTIVE NONREACTIVE [facility] P24 [id number] 17:13:00* Test Item Value Reference Range Interpretation Comments HIV P24 Antigen (test code = HIV P24 Antigen) NON-REACTIVE NONREACT MUMTAZ [facility] (1&2) Gwnqvpyd0654-96-77 17:13:00* Test Item Value Reference Range Interpretation Comments HIV (1&2) Antibody (test code = 41214-8) NON-REACTIVE NONREACTIVE [facility] P24 [id number] 17:13:00* Test Item Value Reference Range Interpretation Comments HIV P24 Antigen (test code = HIV P24 Antigen) NON-REACTIVE NONREACT MUMTAZ [facility] [id number] 12:56:00 [place] [address] Patient Name: INDRA GALVAN MR #: [id number] : 1980 Age/Sex: 37/M Req #: [id number] Adm Physician: KIET DUMAS MD Ordered by: MANDEEP MARIE MD Report #: [id number] Location: MED/SURG3 Room/Bed: [facility] Procedure: 0402-[address]/CT CHEST [...] 1:08 PM Dictated By: KAMALJIT COOPER MD [address] scribed By: CATERINA on 05/28/18 1308 COPY TO: MANDEEP MARIE MD Amylase [id number] 09:09:00* Test Item Value Reference Range Interpretation Comments Amylase Level (test code = 1798-8) 24 25-125 L [facility]2019-04-[facility] 09:09:00* Test Item Value Reference Range Interpretation Comments Lipase (test code = 3040-3) 28 8-78 [facility] Aitvm1800-95-27 09:09:00* Test Item Value Reference Range Interpretation Comments Amylase Level (test code = 1798-8) 24 25-125 L [facility]2019-04-02 09:09:00* Test Item Value Reference Range Interpretation Comments Lipase (test code = 3040-3) 28 -78 [facility] 2 [id number] 06:24:00 [facility] [address] [address] Patient Name: INDRA GALVAN MR #: [id number] : 1980 Age/Sex: 37/M Req #: [id number] Adm Physician: KIET DUMAS MD Ordered by: ANAYA BUSTAMANTE MD Report #: [id number] Location: MED/SURG3 Room/Bed: [facility]-1 Procedure: 0402-0 010 DX/CHEST 2 VIEWS Exam [...] COPY TO: ANAYA BUSTAMANTE MD CT ABDOMEN/PELVIS [id number] 20:09:00 [place] [address] Patient Name: INDRA GALVAN MR #: [id number] : 1980 Age/Sex: 37/M Req #: [id number] Adm Physician: KIET DUMAS MD Ordered by: ANAYA BUSTAMANTE MD Report #: [id number] Location: [facility] Room/Bed: [place] [address] Procedure: 0401-[address]/CT ABDOMEN/PELVIS W Exam [...] on 05/27/182039 COPY TO: ANAYA BUSTAMANTE MD US [id number] 19:50:00 [place] [address] Patient Name: INDRA GALVAN MR #: [id number] : 1980 Age/Sex: 37/M Req #: [id number] Adm Physician: KIET DUMAS MD Ordered by: ANAYA BUSTAMANTE MD Report #: [id number] Location: [facility] Room/Bed: [place] [address] Procedure: 0401-0 013 US/US GALLBLADDER Exam Date: [...] TO: ANAYA BUSTAMANTE MD B- Type Natriuretic [id number] 17:56:00* Test Item Value Reference Range Interpretation Comments B-Type Natriuretic Peptide (test code = 39326-0) 221.6 0-100 H [facility] Virus Types A,B Antigen 2018-05-27 17:30:00* Test Item Value Reference Range Interpretation Comments Influenza Virus Types A,B Antigen (test code = 83553-9) NEGATIVE NEGATIVE [facility] A,B Antigen 2018-05-27 17:30:00* Test Item Value Reference Range Interpretation Comments Influenza Virus Types A,B Antigen (test code = 62088-0) NEGATIVE NEGATIVE [facility] HospitalTroponin [id number] 17:28:00* Test Item Value Reference Range Interpretation Comments Troponin I (test code = BMD8379) 0.010 0-0.300 [facility] Dlhkv8723-46-96 17:20:00* Test Item Value Reference Range Interpretation Comments Lactic Acid Level (test code = Lactic Acid Level) 26.5 4.5- 19.8 Results repeated and called to Alina at 1720 on 05/27/18 by Kalin Almanza. Read ba ck and verified.[facility] 2 [id number] 15:47:00 [facility] [address] [address] Patient Name: INDRA GALVAN MR #: [id number] : 1980 Age/Sex: 37/M Req #: [id number] Adm Physician: Ordered by: ANAYA BUSTAMANTE MD Report #: [id number] Location: ER Room/Bed: Procedure: 8134-1778 DX/CHEST 2 VIEWS Exam Date: Exam Time: [...] 3:50 PM Dictated By: SONIA Jeffery MD 1550 Transcribed By: CATERINA on 05/27/18 5040 COPY TO: ANAYA BUSTAMANTE MD
[2019-12-07 23:57] LABS: BASOPHILS # (AUTO) 0.1 (0.0-0.1); BASOPHILS % 0.6 % (0.0-1.0); EOSINOPHILS # (AUTO) 0.6 (0.0-0.4); EOSINOPHILS % 2.8 % (0.0-6.0); LYMPHOCYTES # (AUTO) 1.7 (1.0-3.2); LYMPHOCYTES % 7.7 % (18.0-39.1); MEAN CORPUSCULAR HEMOGLOBIN 35.2 pg (28-32); MEAN CORPUSCULAR HGB CONC 34.8 g/dL (31-35); MONOCYTES # (AUTO) 2.3 (0.2-0.8); MONOCYTES % 10.5 % (4.4-11.3); NEUTROPHILS # (AUTO) 16.7 (2.1-6.9); NEUTROPHILS % 75.8 % (38.7-80.0); RED BLOOD COUNT 1.96 x10e6/uL (4.3-5.7)
[2019-12-07 23:59] LABS: HEMATOCRIT 19.8 % (38.2-49.6); HEMOGLOBIN 6.9 g/dL (14.0-18.0)
[2019-12-08] VITALS (8 sets, daily range): BP systolic 84–135; BP diastolic 37–92
[2019-12-08] LABS: PLATELET COUNT 50 x10e3/uL (140-360)
[2019-12-08 00:07] LABS: ALANINE AMINOTRANSFERASE 38 IU/L (0-55); ALBUMIN 1.5 g/dL (3.5-5.0); ALBUMIN/GLOBULIN RATIO 0.8 (0.8-2.0); ALKALINE PHOSPHATASE 85 IU/L (40-150); ANION GAP 17.8 mmol/L (8-16); BLOOD UREA NITROGEN 36 mg/dL (7-26); BUN/CREATININE RATIO 7 (6-25); CALCIUM 7.3 mg/dL (8.4-10.2); CARBON DIOXIDE 17 mmol/L (22-29); CHLORIDE 94 mmol/L (98-107); CREATINE KINASE 23 IU/L (30-200); CREATININE, SERUM 4.81 mg/dL (0.72-1.25); EST GLOMERULAR FILTRATION RATE 13 ML/MIN (60-); GLUCOSE 114 mg/dL (74-118); POTASSIUM 3.8 mmol/L (3.5-5.1); SODIUM 125 mmol/L (136-145)
--- NOTE | 2019-12-08 00:30 | Diagnostic Imaging Report ---
Exam: Head CT without contrast History: Trauma, fall, dizziness Comparison studies: None Technique: Axial images were obtained from the skull base to the vertex. Coronal and sagittal images reconstructed from the axial data. Dose modulation, iterative reconstruction, and/or weight based adjustment of the mA/kV was utilized to reduce the radiation dose to as low as reasonably achievable. Radiation dose: Total DLP: 921 mGy*cm. Estimated effective dose: DLP x 0.015 Intravenous contrast: None Findings: Scalp: No abnormalities. Bones: No fractures, blastic or lytic lesions. Brain sulci: Mildly prominent. Ventricles: Mild compensatory dilatation. No hydrocephalus. Extra-axial spaces: Incidental magna cisterna magna. No mass or fluid collection. Parenchyma: No abnormal densities. No masses, hemorrhage, acute or chronic vascular insults. Sellar/suprasellar region: No abnormalities. Craniocervical junction: Patent foramen magnum. No Chiari one malformation. Included paranasal sinuses: Clear. Middle ear cavities and included mastoids: Clear. Incidental findings: Atherosclerotic calcifications in the carotid siphons. IMPRESSION: 1. No acute abnormalities. 2. Mild generalized parenchymal volume loss. Signed by: Dr. Oscar Molina M.D. on 12/08/2019 12:27 AM
[2019-12-08] MEDS ORDERED: SODIUM CHLORIDE 0.9% 250ML 250 ML IV ONE ×2 (01:00→16:30)
[2019-12-08] MEDS ORDERED: SODIUM CHLORIDE FLUSH 10 ML SYR INJ PRN (01:00)
--- NOTE | 2019-12-08 01:02 | Diagnostic Imaging Report ---
EXAMINATION: CHEST SINGLE (PORTABLE) INDICATION: EVAL FOR PULMONARY EDEMA COMPARISON: Multiple priors. FINDINGS: TUBES and LINES: Right IJ dual-lumen dialysis catheter projects over the right atrium. LUNGS: Low lung volumes. Strandy and bandlike opacities in the left lower lobe, unchanged, likely atelectasis. Pulmonary vessels are within normal limits for technique and lung volumes. PLEURA: No pleural effusion or pneumothorax. HEART AND MEDIASTINUM: The cardiomediastinal silhouette is unremarkable. IMPRESSION: Pulmonary vascular congestion. No edema. Unchanged left basilar atelectasis. Signed by: Rahul Beck MD on 12/08/2019 12:59 AM
--- OUTSIDE RECORDS SUMMARY | 2019-12-08 01:05 | XMS REPORT | Clinical Summary ---
Author Author [facility] Organization [facility] Address Unknown Phone Unavailable Care Team Providers Care Glue Line Operator Name Role Phone PCP Unavailable Allergies [...] (>/= 19 yrs) Results Not on fileafter 12/07/2018 Insurance Type Payer Benefit Subscriber ID Effective Phone Address Plan / Dates Group BC/BS BC/BS PPO xxxxxxxxxxxx 2017-P [phone] [id number] [place] [address] Advance Directives Date Inactivated Comments Code Status Date Activated 01/28/2018 3:20 PM Full Code 01/24/2018 10:54 PM
--- OUTSIDE RECORDS SUMMARY | 2019-12-08 01:06 | XMS REPORT | Clinical Summary ---
Author Author PATY Perillon SoftwareSt. Mary'S HospitalAustral 3D [facility] Address Unknown Phone Unavailable Care Team Providers Care Batch Analyst Name Role Phone Keith Hammond Unavailable Pcp, [...] Follow-up 12/01/2019 Telephone Transplant Hepatolo Michael Bejarano [facility] Social Work 12/01/2019 Telephone Transplant Hepatolo gy Anastacio Killian 11/17/2019 Documentation Transplant Hepatolo gy Anastacio Killian 11/13/2019 Documentation Transplant Hepatolo Malina Mcpherson RN Follow-up 11/07/2019 Telephone Transplant Hepatolo Malina Mcpherson RN Follow-up 11/07/2019 Telephone Transplant Hepatolo Michael Bejarano, [facility] Social Work 11/07/2019 Telephone Transplant Hepatolo Malina Mcpherson RN Follow-up 11/07/2019 Telephone Transplant Hepatolo Malina Mcpherson RN Follow-up 11/06/2019 Telephone Transplant Hepatolo gy Michael Blount, [facility] Social Work 10/17/2019 Telephone Transplant Hepatolo gy Anastacio Killian Appointment 07/28/2019 Telephone Transplant Hepatolo Michael Bejarano FILM CUTTER Social Work 07/18/2019 Telephone Transplant Hepatolo Malina [...] evaluation for end stage renal disease 02/03/2019 [facility] Radiology Encounter System, Provider Not [...] 33.9 in adult; Portal hypertension (HCC) 12/21/2018 [facility] General Internal Ma dicine - Encounter 12/26/2018 12/21/2018 Orders Only General Internal Ma dicine 12/21/2018 Travel after 12/07/2018 Family History Medical History Relation Name Comments [...] Lantigua MD [address] [place] [address] [phone] 12/16/2019 Follow-Up Transplant Hepatolo gy Dveyn Lantigua MD [address] [place] [address] [phone] 12/16/2019 Appointment Radiology Health Maintenance Due Date [...] unspecified vessel or lesion type, unspecified whether [place] or transplanted heart (HCC) TRANSFUSION SERVICE 05/07/2019 [...] ms QTC Calculatio n(Bazett) 490 ms R Harper 151 degrees T Harper -88 degrees Undetermi lara rhythm Left posterior [...] ms QTC Calculatio n(Bazett) 262 ms R Harper 153 degrees T Harper -84 degrees Sinus tachycardi a with 1st [...] ms QTC Calculatio n(Bazett) 511 ms P Harper 254 degrees R Harper 46 degrees T Harper -73 degrees Atrial flutter with variable A-V [...] ms QTC Calculatio n(Bazett) 0 ms R Harper 0 degrees T Harper 0 degrees No QRS complexes found, no [...] ms QTC Calculatio n(Bazett) 557 ms P Harper 45 degrees R Harper 33 degrees T Harper 29 degrees Normal sinus rhythm Nonspecifi c [...] Alcohol ic hepatitis with DIFFERENTIAL 9:34 AM COMPUTER REPAIR TECHNICIAN ascites ESRD on hemodialysis (HCC) PROTHROMBIN TIME/INR Routine 04/07/2019 Alcoholic hepatitis with 9:34 AM COMPUTER REPAIR TECHNICIAN ascites ESRD on hemodialysis (HCC) HEPATIC FUNCTION PANEL Routine 04/07/2019 Alcohol ic hepatitis with 9:34 AM COMPUTER REPAIR TECHNICIAN ascites ESRD on hemodialysis (HCC) CBC W/PLT COUNT & AUTO Routine 04/07/2019 Alcohol ic hepatitis with DIFFERENTIAL 9:34 AM COMPUTER REPAIR TECHNICIAN ascites ESRD on hemodialysis (HCC) BASIC METABOLIC PANEL (7) Routine 04/07/2019 Alco holic hepatitis with 9:34 AM COMPUTER REPAIR TECHNICIAN ascites ESRD on hemodialysis (HCC) CBC W/PLT COUNT & AUTO Routine 03/14/2019 Alcohol ic cirrhosis of DIFFERENTIAL 10:32 AM COMPUTER REPAIR TECHNICIAN liver without ascit es (HCC) PROTHROMBIN TIME/INR Routine 03/14/2019 Alcoholic cirrhosis of 10:32 AM COMPUTER REPAIR TECHNICIAN liver without ascites (HCC) CBC W/PLT COUNT & AUTO Routine 03/14/2019 Alcohol ic cirrhosis of DIFFERENTIAL 10:32 AM COMPUTER REPAIR TECHNICIAN liver without ascit es (HCC) HEPATIC FUNCTION PANEL Routine 03/14/2019 Alcohol ic cirrhosis of 10:32 AM COMPUTER REPAIR TECHNICIAN liver without ascites (HCC) BASIC METABOLIC PANEL (7) Routine 03/14/2019 Alco holic cirrhosis of 10:32 AM COMPUTER REPAIR TECHNICIAN liver without ascites (HCC) CBC W/PLT COUNT & AUTO Routine 03/04/2019 Iron de ficiency anemia, DIFFERENTIAL 10:00 AM COMPUTER REPAIR TECHNICIAN unspecified iron deficiency anemia type COMPREHENSIVE METABOLIC Routine 03/04/2019 Alcoho lic cirrhosis of PANEL 10:00 AM COMPUTER REPAIR TECHNICIAN liver with ascites (HCC) CBC W/PLT COUNT & AUTO Routine 03/04/2019 Iron de ficiency anemia, DIFFERENTIAL 10:00 AM COMPUTER REPAIR TECHNICIAN unspecified iron deficiency anemia type BILIRUBIN, DIRECT Routine 03/04/2019 Alcoholic ci rrhosis of 10:00 AM COMPUTER REPAIR TECHNICIAN liver with ascites (HCC) PROTHROMBIN TIME/INR Routine 03/04/2019 Alcoholic cirrhosis of 9:55 AM COMPUTER REPAIR TECHNICIAN liver with ascites (HCC) COMPREHENSIVE METABOLIC Routine 02/03/2019 Fatty liver PANEL 10:13 AM COMPUTER REPAIR TECHNICIAN BILIRUBIN, DIRECT Routine 02/03/2019 Fatty liver 10:13 AM COMPUTER REPAIR TECHNICIAN CBC W/PLT COUNT & AUTO Routine 02/03/2019 ESRD (e nd stage renal DIFFERENTIAL 10:12 AM COMPUTER REPAIR TECHNICIAN disease) (HCC) Acute blood loss anemia PROTHROMBIN TIME/INR Routine 02/03/2019 Fatty maru er 10:12 AM COMPUTER REPAIR TECHNICIAN CBC W/PLT COUNT & AUTO Routine 02/03/2019 ESRD (e nd stage renal DIFFERENTIAL 10:12 AM COMPUTER REPAIR TECHNICIAN disease) (HCC) Acute blood loss anemia US PELVIS WITH DOPPLER Routine 02/03/2019 ESRD (e nd stage renal 9:35 AM COMPUTER REPAIR TECHNICIAN disease) (HCC) Pre-transplant evaluation for end stage renal disease RHYTHM STRIP - SCAN 01/21/2019 11:42 AM COMPUTER REPAIR TECHNICIAN RHYTHM STRIP - SCAN 01/20/2019 4:02 PM COMPUTER REPAIR TECHNICIAN RHYTHM STRIP - SCAN 01/20/2019 4:02 PM COMPUTER REPAIR TECHNICIAN TRANSFUSION SERVICE 01/19/2019 REPORT - SCAN 6:00 PM COMPUTER REPAIR TECHNICIAN PREPARE LEUKO-REDUCED RBC Routine 01/18/2019 11:55 PM COMPUTER REPAIR TECHNICIAN TRANSFUSION SERVICE 01/18/2019 REPORT - SCAN 6:03 PM COMPUTER REPAIR TECHNICIAN VITAMIN B12 AND FOLATE Routine 01/18/2019 5:47 PM COMPUTER REPAIR TECHNICIAN HAPTOGLOBIN Routine 01/18/2019 5:47 PM COMPUTER REPAIR TECHNICIAN LACTATE DEHYDROGENASE Routine 01/18/2019 (LDH) 5:47 PM COMPUTER REPAIR TECHNICIAN IRON, TIBC, % SAT. Routine 01/18/2019 (WITHOUT FERRITIN) 5:47 PM COMPUTER REPAIR TECHNICIAN FERRITIN Routine 01/18/2019 5:47 PM COMPUTER REPAIR TECHNICIAN ULTRAFILTRATION HD CRRT Routine 01/18/2019 3:13 PM COMPUTER REPAIR TECHNICIAN HEMOGLOBIN AND HEMATOCRIT STAT 01/18/2019 11:17 AM COMPUTER REPAIR TECHNICIAN CBC (HEMOGRAM ONLY) Routine 01/18/2019 2:51 AM COMPUTER REPAIR TECHNICIAN TRANSFUSE LEUKO-REDUCED Routine 01/17/2019 RED BLOOD CELLS 11:33 PM COMPUTER REPAIR TECHNICIAN TRANSFUSE LEUKO-REDUCED Routine 01/17/2019 RED BLOOD CELLS 10:39 PM COMPUTER REPAIR TECHNICIAN HEMODIALYSIS INPATIENT Routine 01/17/2019 9:29 PM COMPUTER REPAIR TECHNICIAN TYPE AND SCREEN, Routine 01/17/2019 AUTOMATED 3:35 PM COMPUTER REPAIR TECHNICIAN CBC W/PLT COUNT & AUTO Routine 01/16/2019 Alcohol ic cirrhosis of DIFFERENTIAL 3:56 PM COMPUTER REPAIR TECHNICIAN liver without ascit es (HCC) AB SPECIFICITY CLASS I Routine 01/16/2019 ESRD (e nd stage renal 3:56 PM COMPUTER REPAIR TECHNICIAN disease) (HCC) Pre-transplant evaluation for end stage renal disease ALPHA FETOPROTEIN (AFP), Routine 01/16/2019 Alcoh olic cirrhosis of TUMOR MARKER 3:56 PM COMPUTER REPAIR TECHNICIAN liver without ascit es (HCC) PROTHROMBIN TIME/INR Routine 01/16/2019 Alcoholic cirrhosis of 3:56 PM COMPUTER REPAIR TECHNICIAN liver without ascites (HCC) CBC W/PLT COUNT & AUTO Routine 01/16/2019 Alcohol ic cirrhosis of DIFFERENTIAL 3:56 PM COMPUTER REPAIR TECHNICIAN liver without ascit es (HCC) HEPATIC FUNCTION PANEL Routine 01/16/2019 Alcohol ic cirrhosis of 3:56 PM COMPUTER REPAIR TECHNICIAN liver without ascites (HCC) BASIC METABOLIC PANEL (7) Routine 01/16/2019 Alco holic cirrhosis of 3:56 PM COMPUTER REPAIR TECHNICIAN liver without ascites (HCC) FLOW PRA CLASS II WITH Routine 01/16/2019 ESRD (e nd stage renal REFLEX TO ANTIBODY 3:56 PM COMPUTER REPAIR TECHNICIAN disease) (HCC) SPECIFICITY Pre-transplant evaluation for end stage renal disease FLOW PRA CLASS I WITH Routine 01/16/2019 ESRD (en d stage renal REFLEX TO ANTIBODY 3:56 PM COMPUTER REPAIR TECHNICIAN disease) (HCC) SPECIFICITY Pre-transplant evaluation for end stage renal disease HLA TYPING CII Routine 01/16/2019 ESRD (end stage renal 3:56 PM COMPUTER REPAIR TECHNICIAN disease) (HCC) Pre-transplant evaluation for end stage renal disease HLA TYPING CI Routine 01/16/2019 ESRD (end stage renal 3:56 PM COMPUTER REPAIR TECHNICIAN disease) (HCC) Pre-transplant evaluation for end stage renal disease RHYTHM STRIP - SCAN 01/08/2019 9:10 AM COMPUTER REPAIR TECHNICIAN TRANSFUSION SERVICE 01/06/2019 REPORT - SCAN 5:50 PM COMPUTER REPAIR TECHNICIAN HEPATIC FUNCTION PANEL Routine 01/06/2019 6:01 AM COMPUTER REPAIR TECHNICIAN PROTHROMBIN TIME/INR Routine 01/06/2019 6:01 AM COMPUTER REPAIR TECHNICIAN MAGNESIUM Routine 01/06/2019 6:01 AM COMPUTER REPAIR TECHNICIAN BASIC METABOLIC PANEL (7) Routine 01/06/2019 6:01 AM COMPUTER REPAIR TECHNICIAN CBC (HEMOGRAM ONLY) Routine 01/06/2019 6:01 AM COMPUTER REPAIR TECHNICIAN MISCELLANEOUS LAB ORDER Routine 01/06/2019 6:01 AM COMPUTER REPAIR TECHNICIAN PREPARE LEUKO-REDUCED RBC Routine 01/05/2019 11:54 PM COMPUTER REPAIR TECHNICIAN TRANSFUSION SERVICE 01/05/2019 REPORT - SCAN 5:50 PM COMPUTER REPAIR TECHNICIAN PROTHROMBIN TIME/INR Routine 01/05/2019 4:30 AM COMPUTER REPAIR TECHNICIAN HEPATIC FUNCTION PANEL Routine 01/05/2019 4:30 AM COMPUTER REPAIR TECHNICIAN MAGNESIUM Routine 01/05/2019 4:30 AM COMPUTER REPAIR TECHNICIAN BASIC METABOLIC PANEL (7) Routine 01/05/2019 4:30 AM COMPUTER REPAIR TECHNICIAN CBC (HEMOGRAM ONLY) Routine 01/05/2019 4:30 AM COMPUTER REPAIR TECHNICIAN PREPARE LEUKO-REDUCED RBC STAT 01/04/2019 11:54 PM COMPUTER REPAIR TECHNICIAN TRANSFUSION SERVICE 01/04/2019 REPORT - SCAN 5:53 PM COMPUTER REPAIR TECHNICIAN DRUG SCREEN, URINE, Routine 01/04/2019 TRANSPLANT 5:39 PM COMPUTER REPAIR TECHNICIAN DRUG SCREEN, URINE, Routine 01/04/2019 COMPREHENSIVE 5:39 PM COMPUTER REPAIR TECHNICIAN TRANSFUSE LEUKO-REDUCED Routine 01/04/2019 RED BLOOD CELLS 2:09 PM COMPUTER REPAIR TECHNICIAN ETHANOL Routine 01/04/2019 9:42 AM COMPUTER REPAIR TECHNICIAN CBC W/PLT COUNT & AUTO Routine 01/04/2019 DIFFERENTIAL 4:07 AM COMPUTER REPAIR TECHNICIAN CBC W/PLT COUNT & AUTO Routine 01/04/2019 DIFFERENTIAL 4:07 AM COMPUTER REPAIR TECHNICIAN HEPATIC FUNCTION PANEL Routine 01/04/2019 4:07 AM COMPUTER REPAIR TECHNICIAN BASIC METABOLIC PANEL (7) Routine 01/04/2019 4:07 AM COMPUTER REPAIR TECHNICIAN TRANSFUSE LEUKO-REDUCED STAT 01/04/2019 RED BLOOD CELLS 1:55 AM COMPUTER REPAIR TECHNICIAN TYPE AND SCREEN, STAT 01/03/2019 AUTOMATED 9:56 PM COMPUTER REPAIR TECHNICIAN CBC W/PLT COUNT & AUTO STAT 01/03/2019 DIFFERENTIAL 9:54 PM COMPUTER REPAIR TECHNICIAN PT/APTT STAT 01/03/2019 9:54 PM COMPUTER REPAIR TECHNICIAN HEPATIC FUNCTION PANEL STAT 01/03/2019 9:54 PM COMPUTER REPAIR TECHNICIAN BASIC METABOLIC PANEL (7) STAT 01/03/2019 9:54 PM COMPUTER REPAIR TECHNICIAN CBC W/PLT COUNT & AUTO STAT 01/03/2019 DIFFERENTIAL 9:54 PM COMPUTER REPAIR TECHNICIAN REPORT OF PROCEDURE - 12/31/2018 ENDOSCOPY SCAN 12:52 PM COMPUTER REPAIR TECHNICIAN TRANSFUSION SERVICE 12/27/2018 REPORT - SCAN 6:02 [...] ms QTC Calculatio n(Bazett) 541 ms P Harper 40 degrees R Harper 30 degrees T Harper 14 degrees Normal sinus rhythm Prolonged QT Abnormal ECG When compared with ECG of 9 03:56, Nonspecifi c T wave abnormalit y no longer evident in Lateral leads ECG 12-LEAD STAT 12/21/2018 1:18 AM CDT CRITICAL CARE Routine 12/21/2018 1:10 AM CDT after 12/07/2018 Results * MR abdomen with/without IV contrast (05/23/2019 12:08 PM CDT) Specimen Narrative Performed At FINAL REPORT [facility] MRI of the abdomen with and without [...] Report Verified Date/Time: 05/23/2019 12:54:18 Reading Location: [facility] [id number] Reading Room Procedure Note Interface, External Ris [...] Report Verified Date/Time: 05/23/2019 12:54:18 Reading Location: [facility] [id number] Ortho Consult Reading Room Performing Organization Address City/State/Zipcode Ph one Number GE RIS * CBC with platelet count + automated diff (05/23/2019 9:03 AM CDT) Only the most recent of 22 results within the time period is included. WBC 7.3 3.5 - 10.5 K/L [facility] RBC 2.33 (L) 4.63 - 6.08 M/L [facility] Hemoglobin 7.3 (L) 13.7 - 17.5 GM/DL [facility] Hematocrit 22.0 (L) 40.1 - 51.0 % [facility] MCV 94.4 (H) 79.0 - 92.2 fL [facility] MCH 31.3 25.7 - 32.2 pg [facility] MCHC 33.2 32.3 - 36.5 GM/DL [facility] RDW 18.6 (H) 11.6 - 14.4 % [facility] Platelets 94 (L) 150 - 450 K/CU MM [facility] MPV 8.4 (L) 9.4 - 12.4 fL [facility] nRBC 0 0 - 0 /100 WBC [facility] % Neutros 69 % [facility] % Lymphs 18 % [facility] % Monos 9 % [facility] % Eos 3 % [facility] % Baso 1 % [facility] # Neutros 5.03 1.78 - 5.38 K/L [facility] # Lymphs 1.31 (L) 1.32 - 3.57 K/L [facility] # Monos 0.62 0.30 - 0.82 K/L [facility] # Eos 0.23 0.04 - 0.54 K/L [facility] # Baso 0.06 0.01 - 0.08 K/L [facility] Immature 0 0 - 1 % [facility] [place] [place] Specimen Blood Performing Organization Address City/State/Zipcode Ph one Number [place] [phone] [place], [place] [address] [facility]ENTER * Prothrombin time/INR (05/23/2019 9:03 AM CDT) Only the most recent of 10 results within the time period is included. Protime 16.6 (H) 11.9 - 14.2 seconds [facility] INR 1.4 <=5.9 [facility] Specimen Blood Narrative Performed At Effective 07/24/2018: PT Reference Range Change [facility] New: 11.9-14.2 Previous: 11.7-14.7 [facility] MEDICAL JASWANT TER RECOMMENDED COUMADIN/WARFARIN INR THERA PY RANGES STANDARD DOSE: 2.0-3.0 Includes: PROP HYLAXIS for venous thrombosis, systemic embolization; TREATMENT for venous thro mbosis and/or pulmonary embolus. HIGH RISK: Target INR is 2.5-3.5 for pa tients wiht mechanical heart valves. Performing Organization Address [facility] one Number [place] [id number] [facility] * Hepatic function panel (05/23/2019 9:03 AM CDT) Only the most recent of 11 results within the time period is included. Protein, Total 6.5 6.0 - 8.3 gm/dL [facility] Albumin 3.4 (L) 3.5 - 5.0 g/dL [facility] Total Bilirubin 5.4 (H) 0.2 - 1.2 mg/dL [facility] Bilirubin, 2.6 (H) 0.1 - 0.5 mg/dL [facility] Alkaline 200 (H) 40 - 150 U/L [facility] AST 46 (H) 5 - 34 U/L [facility] ALT 12 6 - 55 U/L [facility] Specimen Blood Narrative Performed At Building Attendant ID - ROSIANG [facility] Specimen moderately icteric [facility] Performing Organization Address [facility] one Number [address] [facility] * Basic Metabolic Panel (05/23/2019 9:03 AM CDT) Only the most recent of 16 results within the time period is included. Sodium 139 136 - 145 meq/L [facility] Potassium 3.3 (L) 3.5 - 5.1 meq/L [facility] Chloride 100 98 - 107 meq/L [facility] CO2 30 (H) 22 - 29 meq/L [facility] BUN 25 (H) 7 - 21 mg/dL [facility] Creatinine 2.87 (H) 0.57 - 1.25 mg/dL [facility] Glucose 112 (H) 70 - 105 mg/dL [facility] Calcium 8.5 8.4 - 10.2 mg/dL [facility] EGFR 25Comment: ESTIMATED GFR IS mL/min/1.73 sq m [facility] NOT ACCURATE CREATININE [facility] CLEARANCE IN PREDICTING MEDICAL CENTER GLOMERULAR FILTRATION RATE. ESTIMATED GFR IS NOT APPLICABLE FOR DIALYSIS PATIENTS. Specimen Blood Narrative Performed At Building Attendant ID - ROSIANG [facility] Performing Organization Address City/[facility] Ph one Number [place] [address] [facility] * RHYTHM STRIP - SCAN (05/15/2019 [...] is n ot available. Performing Organization Address City/[facility] Ph one Number [facility] [address] [place], [place] * Bilirubin, direct (05/14/2019 9:30 AM CDT) Only the most recent of 4 results within the time period is included. Bilirubin, 2.0 (H) 0.1 - 0.5 mg/dL [facility] Specimen Blood Performing Organization Address City/[facility] Ph one Number [phone] [place] [address] * EKG-SCANNED (05/13/2019 11:03 AM CDT) Only [...] included. Phosphorus 3.4 2.3 - 4.7 mg/dL [facility] Specimen Blood Narrative Performed At Building Attendant ID - ULYSSES Jang [facility] Performing Organization Address [facility] Ph one [address] * Magnesium (05/10/2019 5:22 AM CDT) Only the most recent of 14 results within the time period is included. Magnesium 1.9 1.6 - 2.6 mg/dL [facility] Specimen Blood Narrative Performed At Building Attendant ID - ULYSSES Jang [facility] Performing Organization Address City/[facility] one [address] * NM Myocardial Perfusion Pet/CT (Rest & Stress) (05/09/2019 2:55 PM CDT) Specimen Narrative Performed At FINAL REPORT [place] PROCEDURE: MYOCARDIAL PERFUSION PET HEAVENLY GING (Rest/Stress) CPT CODE: 18715 INDICATION: Assess symptoms/risk factor s of possible [...] Report Verified Date/Time: 05/09/2019 16:05:35 Reading Location: [address] Reading Room Procedure Note Interface, External Ris In - 05/09/2019 4:07 PM CDT FINAL REPORT PROCEDURE: MYOCARDIAL PERFUSION PET IMAGING (Rest/Stress) CPT CODE: 49177 INDICATION: Assess symptoms/risk factors of possible CAD [...] Report Verified Date/Time: 05/09/2019 16:05:35 Reading Location: [address] Nuc Med Reading Room Performing [...] 6.1Comment: Specimen slightly 6.0 - 8.3 gm/dL [facility] Albumin 2.9 (L)Comment: Specimen 3.5 - 5.0 g/dL [facility] hemolyzed [facility] Alkaline 116 40 - 150 U/L [facility] Total Bilirubin 4.1 (H)Comment: Specimen 0.2 - 1.2 mg/dL [facility] Sodium 131 (L) 136 - 145 meq/L [facility] Potassium 3.9Comment: Specimen slightly 3.5 - 5.1 meq/L [facility] Chloride 99 98 - 107 meq/L [facility] CO2 23 22 - 29 meq/L [facility] BUN 22 (H) 7 - 21 mg/dL [facility] Creatinine 4.22 (H)Comment: Specimen 0.57 - 1.25 mg/dL [facility] Glucose 108 (H) 70 - 105 mg/dL [facility] Calcium 8.1 (L) 8.4 - 10.2 mg/dL [facility] AST 30Comment: Specimen slightly 5 - 34 U/L [facility] ALT 8Comment: Specimen slightly 6 - 55 U/L [facility] EGFR 16Comment: ESTIMATED GFR IS mL/min/1.73 sq m [facility] NOT ACCURATE CREATININE [facility] CLEARANCE IN PREDICTING MEDICAL CENTER GLOMERULAR FILTRATION RATE. ESTIMATED GFR IS NOT APPLICABLE FOR DIALYSIS PATIENTS. Specimen Blood Narrative Performed At Building Attendant ID - ULYSSES M [facility] Specimen slightly icteric [facility] Performing Organization Address City/State/Zipcode Ph one Number [facility] [address] [place], [place] [address] [facility] CENTER * TRANSFUSION SERVICE REPORT - SCAN (05/08/2019 5:52 PM CDT) Only the most recent of 14 results within the time period is included. Narrative Performed At This result has an attachment that is n ot available. * Limited 2D Echocardiogram (05/08/2019 11:40 AM CDT) Ejection [facility] ECHO Fraction [facility] Specimen Narrative Performed At Transthoracic Echocardiography Report (TTE) [facility] ECH O [facility] Demographics [facility] Patient Name INDRA GALVAN Date of Study 05/08/2019 YAN CORDERO Gender Male Visit Number [id number] Race Unknown Room Number 6213 Number Date of 1980 Referring Physician ROBBIE NEW Age 38 year(s) Fellmongering Machine Operator [facility] Customer Service Associate Nick Navarro Interpreting Physician MELVA Jackson Procedure [...] (>60%) . Left Atrium LA size is psbr-oy-karmeupjse enlarged . Right Ventricle Normal right ventricle [...] 05/08/2019 YAN CORDERO Gender Male Visit Number [id number] Race Unknown Room Number 6213 Number Date of 1980 Referring Physician ROBBIE NEW Age 38 year(s) Fellmongering Machine Operator [facility] Customer Service Associate Nick Navarro Interpreting Physician MELVA Jackson Procedure [...] (>60%) . Left Atrium LA size is elgl-ur-xathosgowt enlarged . Right Ventricle Normal right ventricle [...] is included. Procalcitonin 3.64 (H) <0.05 ng/mL [facility] Specimen Blood Narrative Performed At SEPSIS RISK (ng/mL) [facility] Low: 0.05-0.50 [facility] Intermediate: 0.51-2.00 High: >=2.01 Performing Organization Address City/State/Zipcode Ph one Number [facility] [address] [place], [place] [address] [facility]ENTER * Manual Differential (05/08/2019 3:02 AM CDT) Only the most recent of 3 results within the time period is included. % Neutros 74 % [facility] % Lymphs 12 % [facility] % Monos 9 % [facility] % Eos 2 % [facility] % Baso 3 % [facility] # Neutros 8.66 (H) 1.78 - 5.38 K/ul [facility] # Lymphs 1.40 1.32 - 3.57 K/ul [facility] # Monos 1.05 (H) 0.30 - 0.82 K/uL [facility] # Eos 0.23 0.04 - 0.54 K/uL [facility] # Baso 0.35 (H) 0.01 - 0.08 K/uL [facility] Total Counted 100 [facility] Platelet Normal [facility] Toxic Present [facility] Polychromasia 2+ moderate [facility] Hypochromia 1+ few [facility] Anisocytosis 1+ few [facility] Macrocytes 1+ few [facility] Poikilocytes 1+ few [facility] All Cells 1+ few [facility] Artifact Present [facility] Platelet Conc Adequate [facility] Specimen Blood Narrative Performed At Building Attendant ID - Ivonne Gray [facility] User comments: [facility] Slide comments: Performing Organization Address [facility] Ph one Number [facility] [address] [place] [address] [facility] * Prepare Leuko-Red RBC (05/07/2019 11:54 PM CDT) Only the most recent of 8 results within the time period is included. CROSSMATCH COMPATIBLE [place]AF[place] Unit ABO B Pos [place] UNIT NUMBER [id number] [place] Status TX_TIMEINCHART [facility] Blood Bank RED BLOOD CELLS [employer] Product PRODUCT CODE [id number] [place] Specimen Other Performing Organization Address [facility] one Number [place] [place] * PERIPHERAL VASCULAR REPORT - SCAN (05/07/2019 9:12 PM CDT) Only the most recent of 2 results within the time period is included. Narrative Performed At This result has an attachment that is n ot available. * Body fluid culture + gram stain (05/07/2019 7:20 PM CDT) Result No growth [facility] Gram Stain 1+ White blood cells seen [facility] Gram Stain No organisms seen [facility] Specimen Body Fluid - Pericardial structure (body structure) Performing Organization Address [facility] [facility] Ph one Number [address] 7703 [facility] * Cytology (05/07/2019 7:20 PM CDT) Case Report Medical Cytology Report [facility] Case: [id number] [facility] Authorizing Provider: Robbie New MD Collected: 05/07/2019 1920 Ordering Location: [place] [address] CCU Received: 05/08/2019 1445 Pathologist: Josh Yang MD Specimen: Pericardial DIAGNOSIS PERICARDIAL FLUID (CYTOSPINS): [facility] NITA Electronically - NEGATIVE FOR MALIGNANCY [facility] signed by Julia Yang Pathologist [facility] Laine Sanchez Direct Phone Line: on 05/09/2019 at [phone] 4:28 PM CPT Code(s) 80723 [facility] CLINICAL DATA Pericardial effusion, [facility] cirrhosis [facility] SPECIMEN SOURCE PERICARDIAL FLUID [facility] GROSS 600 mls bloody fluid; 4 [facility] cytosp[facility] Collected: [id number] [facility] Received: [id number] STATEMENT OF Satisfactory [facility] Gross [facility] assessment was [facility] BCM performed at Pathology, [address] [place] [phone], Technical [facility] component was [facility] BCM performed at Pathology, [address] [place] [phone], Professional [facility] component was [facility] BC performed at [facility], [address] [place] [address], Specimen Body Fluid - Pericardial sac structure (body structure) Narrative Performed At This result has an attachment that is n ot available. Performing Organization Address City/State/Zipcode Ph one Number [address] 7703 [facility] * 2D Echo W/Doppler(CW/PW/Color) (05/07/2019 6:32 PM CDT) Ejection SLE ECHO Fraction [facility] Specimen Narrative Performed At Transthoracic Echocardiography Report (TTE) SLE ECH O HEARTLAB Demographics [facility] Patient Name INDRA GALVAN Date of Study 05/07/2019 YAN SONFredy Gender Male Visit Number [id number] Race Unknown Room Number 6213 Number Date of 1980 Referring Robbie New MD Physician Age 38 year(s) Fellmongering Machine Operator Aneudy Jerez Interpreting Vic Caruso, Physician Fellow [...] 05/07/2019 YAN CORDERO Gender Male Visit Number [id number] Race Unknown Room Number 6213 Number Date of 1980 Referring Robbie New MD Physician Age 38 year(s) Fellmongering Machine Operator Aneudy Jerez Interpreting Physician MELVA Jackson [...] Performing Organization Address City/State/Zipcode Ph one Number [facility] ECHO HEARTLAB [facility] * Carotid doppler bilateral (05/06/2019 4:05 PM CDT) Pathologist [facility] Ejection [facility] ECHO Fraction HEARTLAB [facility] Specimen Impressions Performed At Right Impression [facility] ECHO HEARTLAB 1. The internal carotid artery is within normal limit s. [facility] 2. The external carotid artery [...] At PV LAB - Carotid Duplex Study [facility] ECHO HEARTLAB Demographics [facility] Patient Name INDRA GALVAN Date of Study 05/06/2019 YAN CORDERO Age 38 Visit Number [id number] Gender Male Accession Number [id number] Date of 1980 Referring Karen Carranza Room Number 6213 Physician SONIDOAlfred Fellmongering Machine Operator Cb MARINO S Interpreting Karen Blackwell Physician [...] 05/06/2019 YAN CORDERO Age 38 Visit Number [id number] Gender Male Accession Number [id number] Date of 1980 Referring Karen Carranza Room Number 6213 Physician SARAH Fellmongering Machine Operator Cb Maki RVS Interpreting Karen Blackwell [...] Performing Organization Address City/State/Zipcode Ph one Number [facility] ECHO HEARTLAB [facility] * REPORT OF PROCEDURE - ENDOSCOPY URL (05/06/2019 1:43 PM CDT) Narrative Performed At This result has an attachment that is n ot available. * 2D Echo W/Doppler(CW/PW/Color) (05/06/2019 1:06 PM CDT) Ejection [facility] Specimen Narrative Performed At Transthoracic Echocardiography Report (TTE) [facility] ECH O HEARTLAB Demographics [facility] Patient Name INDRA GALVAN Date of Study 05/06/2019 YAN CORDERO Gender Male Visit Number [id number] Race Unknown Room Number 2454 Number Date of 1980 Referring Robbie New MD Physician Age 38 year(s) Fellmongering Machine Operator Aneudy Jerez Center Customer Service Associate Joanna Whitley Interpreting Pratik Alexis MD Procedure [...] by New's method of disk assessment is norm al [...] 05/06/2019 YAN CORDERO Gender Male Visit Number [id number] Race Unknown Room Number 2454 Number Date of 1980 Referring Robbie New MD Physician Age 38 year(s) Fellmongering Machine Operator Aneudy Jerez Center Customer Service Associate Joanna Whitley Interpreting Pratik Pak Physician MD [...] I <0.01 0.00 - 0.03 ng/mL [facility] Specimen Blood Narrative Performed At Troponin I (TnI) levels must be interpreted in the co ntext of the presenting [facility] symptoms and the clinical findings. Elevated TnI leve ls indicate myocardial [facility] damage, but are not specific for ischem ic heart disease. Elevated TnI levels are seen in patients with other cardiac con ditions (including myocarditis and congestive heart failure), and slight T nI elevations occur in patients with other conditions, including sepsis, tay al failure, acidosis, acute neurological disease, and persistent tachyarrhythmia . Building Attendant ID - BS Performing Organization Address City/State/[facility] Ph one Number [address] 7703 [facility]ENTER * ECG 12 lead (05/05/2019 8:53 PM CDT) Only the most recent of 5 results within the time period is included. Specimen Narrative Performed At Ventricular Rate 128 BPM GE MUSE Atrial Rate 89 BPM QRS Duration 94 ms Q-T Interval 336 ms QTC Calculation(Bazett) 490 ms R Harper 151 degrees T Harper -88 degrees Atrial fibrillation Left posterior fascicular [...] 336 ms QTC Calculation(Bazett) 490 ms R Harper 151 degrees T Harper -88 degrees Atrial fibrillation Left posterior fascicular [...] leads Confirmed by MD YORK JOSEPH P ([id number]) on 05/06/2019 6:34:11 AM Performing Organization Address City/State/[facility] Ph one Number GE MUSE * Hepatitis B surface antigen (05/05/2019 3:02 PM CDT) Only the most recent of 2 results within the time period is included. HBsAg Screen Nonreactive Nonreactive [facility] Specimen Blood Narrative Performed At Building Attendant ID - BS [facility] Performing Organization Address [facility] Ph one Number [place] [address] 0 [phone] [place] [address] * Occult blood, stool (05/05/2019 12:07 PM CDT) Occult blood Negative Negative [facility] Specimen Stool - Feces (substance) Performing Organization Address [facility] one [place] [address] 0 [phone] [place] [address] * ABORH, manual (05/05/2019 9:51 AM CDT) ABO Grouping B [facility] Rh Factor POS [facility] Specimen Blood Performing Organization Address [facility] one [place] [phone] [place] [address] * Iron, TIBC, % sat. (without ferritin) (05/05/2019 9:51 AM CDT) Only the most recent of 2 results within the time period is included. Iron 88.0 40.0 - 160.0 ug/dL [facility] TIBC 130 (L) 250 - 450 ug/dL [facility] Iron % 68 (H) 20 - 55 % [facility] Specimen Blood Narrative Performed At Building Attendant ID - PIAYA L [facility] Performing Organization Address [facility] Ph one [place] [address] 0 [phone] [place] [address] * Reticulocyte count (05/05/2019 9:51 AM CDT) % Retic 2.3 (H) 0.5 - 1.8 % [facility] Specimen Blood Narrative Performed At Building Attendant ID - [id number] [facility] Performing Organization Address [facility]/Zipcode Ph one [address] 7[address] [facility] * Direct [facility]HG (LUMA)/Direct Antonia (05/05/2019 9:51 AM CDT) Direct AHG-IGG NEGATIVE [facility] Direct NEGATVIE [facility] AHG-C3B, C3D [facility] Specimen Blood Performing Organization Address [facility] Ph one Number [address] [address] [facility] * Ferritin (05/05/2019 9:51 AM CDT) Only the most recent of 2 results within the time period is included. Ferritin 1,081 (H) 5 - 275 ng/mL [facility] Specimen Blood Narrative Performed At Building Attendant ID - AAQUENTINID [facility] Performing Organization Address [facility] one [place] [address] 0 [phone] [place] [address] * Lactic acid, venous (05/05/2019 12:29 AM CDT) Only the most recent of 3 results within the time period is included. Lactate, Venous 2.6 (H) 0.5 - 2.2 mmol/L [facility] Specimen Blood Narrative Performed At Building Attendant ID - PIAYA L [facility] Specimen slightly icteric [facility] Performing Organization Address [facility] one [address] [facility] * Type and screen, automated ([facility] and CECs only) (05/04/2019 8:42 PM CDT) Only the most recent of 5 results within the time period is included. ABO/RH B POSITIVE [facility] Ab Scrn NEGATIVE [facility] Specimen Blood Performing Organization Address City/State/Zipcode Ph one Number [facility] [address] [place] [address] MEDICAL CENTER * Urinalysis w/Microscopic + Reflex to Culture (05/04/2019 7:53 PM CDT) Color, UA Yellow [facility] Clarity, UA Hazy [facility] Specific 1.011 1.001 - 1.035 [facility] [place], [facility] pH, UA 5.5 5.0 - 8.0 [facility] Protein, UA 100 mg/dL (A) Negative [facility] Glucose, UA 100 mg/dL (A) Negative [facility] Ketones, UA Negative Negative [facility] Bilirubin, UA Negative Negative [facility] Blood, UA Negative Negative [facility] Nitrite, UA Negative Negative [facility] Leukocytes, UA Negative Negative [facility] Urobilinogen, 0.2 0.2 - 1.0 mg/dL [facility] RBC, UA 7 /HPF [facility] WBC, UA 12 /HPF [facility] Bacteria, UA Occasional [facility] Mucus Rare [facility] Squam Epithel, 18 /HPF [facility] Hyaline Casts, 78 /LPF [facility] Casts 70 /LPF [facility] Crystals, Urine Occasional [facility] Yeast Moderate [facility] Specimen Source [facility] Specimen Urine - Urine specimen collection, clean catch (procedure) Narrative Performed At Building Attendant ID - [auto] [facility] Building Attendant ID - tech [facility] Performing Organization Address City/[facility] one Number [facility] [address] [place], [place] [address] [facility] * Strep pneumoniae antigen (05/04/2019 7:53 PM CDT) Strep Presumptive negative for Presumptive negative [facility] pneumoniae pneumococcal pneumonia - see for pneumococcal [facility] Antigen comment pneumonia - see MEDICAL CENTER comment, Presumptive negative for pneumococcal meningitis - see comment Specimen Urine - Urine specimen collection, clean catch (procedure) Narrative Performed At Presumptive negative for pneumococcal p neumonia, suggesting no current or recent [facility] pneumococcal infection. Infection due t o S. pneumoniae cannot be ruled out since [facility] the antigen present in the sample may b e below the detection limit of the test. Performing Organization Address [facility] one Number [address] [facility] * Legionella antigen, urine (05/04/2019 7:53 PM CDT) Pathologist [facility] Legionella Negative - see commentComment: [facility] Urine Antigen Negative for L. pneumophila [facility] serogroup 1 antigen, MEDICAL CENTER suggesting no recent or current infection with this serogroup. Legionellosis cannot be ruled out since other serogroups and species may cause disease. Specimen Urine - Urine specimen collection, clean catch (procedure) Performing Organization Address [facility] one Number [address] [facility] * Urine culture (05/04/2019 7:53 PM CDT) Result <10,000 col/mL skin chase [facility] Specimen Urine - Urine specimen collection, clean catch (procedure) Performing Organization Address [facility] one Number [place] [id number] [place], [place] [address] [facility] * PT/aPTT (05/04/2019 7:29 PM CDT) Only the most recent of 3 results within the time period is included. Protime 18.9 (H) 11.9 - 14.2 seconds [facility] INR 1.6 <=5.9 [facility] PTT 40.7 (H) 22.5 - 36.0 seconds [facility] Specimen Blood Narrative Performed At Effective 07/24/2018: PT Reference Range Change [facility] New: 11.9-14.2 Previous: 11.7-14.7 [facility] MEDICAL JASWANT TER RECOMMENDED COUMADIN/WARFARIN INR THERA PY RANGES STANDARD DOSE: 2.0-3.0 Includes: PROP HYLAXIS for venous thrombosis, systemic embolization; TREATMENT for venous thro mbosis and/or pulmonary embolus. HIGH RISK: Target INR is 2.5-3.5 for pa tients wiht mechanical heart valves. Performing Organization Address [facility] one Number [address] [facility] * Blood Culture - Routine (Left Venipuncture) (05/04/2019 7:29 PM CDT) Only the most recent of 6 results within the time period is included. Pathologist [facility] Result No growth in 5 days [facility] Specimen Blood - Entire left upper arm (body structure) Performing Organization Address [facility] one Number [address] [facility] * B-type Natriuretic Factor (BNP) (05/04/2019 7:29 PM CDT) Pathologist [facility] BNP 612 (H) 0 - 100 pg/mL [facility] Specimen Blood Narrative Performed At Building Attendant ID - DB [facility] Performing Organization Address [facility] one Number [address] [facility] * Rapid Influenza A&B Screen (05/04/2019 7:28 PM CDT) Pathologist [facility] Rapid Influenza Negative Negative, [facility] A Antigen Inconclusive [facility] Rapid influenza Negative Negative, [facility] B Antigen Inconclusive [facility] Specimen Nasal - Nasopharyngeal wall structure (body structure) Performing Organization Address City/State/Zipcode Ph one Number [facility] [address] [place], [place] [address] MED[facility] CENTER * CRITICAL CARE [...] Report Verified Date/Time: 05/04/2019 18:08:08 Reading Location: [address] Reading Room Procedure Note Interface, External [...] Report Verified Date/Time: 05/04/2019 18:08:08 Reading Location: [facility] C013T Transitional Reading Room Performing Organization Address City/State/Zipcode Ph one Number GE RIS * US pelvis with doppler (02/03/2019 9:35 AM COMPUTER REPAIR TECHNICIAN) Specimen Narrative Performed At FINAL REPORT [facility] Pelvic ultrasound dated 02/03/2019. COMMENT: Real-time [...] iliac artery measures 1.0 cm. The left customer success intern al iliac artery is not visualized. The bilateral common and external iliac veins are patent. IMPRESSION: Unremarkable pelvic vascula ture. Signed: Keith Garcia MD Report Verified Date/Time: 02/03/2019 11:35:01 Reading Location: [address] Reading Room Procedure Note Interface, External Ris In - 02/03/2019 11:37 AM COMPUTER REPAIR TECHNICIAN FINAL REPORT Pelvic ultrasound dated 02/03/2019. COMMENT: [...] Report Verified Date/Time: 02/03/2019 11:35:01 Reading Location: [address] Radiology Reading Room Performing Organization Address [facility] one Number [facility] * Vitamin B12 and Folate (01/18/2019 5:47 PM COMPUTER REPAIR TECHNICIAN) Vitamin B12 1,988 (H) 213 - 816 pg/mL [facility] Folate 17.8 >=7.0 ng/mL [facility] Specimen Blood Performing Organization Address [facility] one Number [address] [facility] * Lactate dehydrogenase (LDH) (01/18/2019 5:47 PM COMPUTER REPAIR TECHNICIAN) Only the most recent of 2 results within the time period is included. LDH 192 125 - 220 U/L [facility] Specimen Blood Performing Organization Address [facility] one Number [address] [facility] * Haptoglobin (01/18/2019 5:47 PM COMPUTER REPAIR TECHNICIAN) Only the most recent of 2 results within the time period is included. Haptoglobin 14 14 - 258 mg/dL [facility] Specimen Blood Performing Organization Address [facility] one Number [address] [facility] * Hemoglobin and hematocrit (01/18/2019 11:17 AM COMPUTER REPAIR TECHNICIAN) Only the most recent of 2 results within the time period is included. Hemoglobin 7.5 (L) 13.7 - 17.5 GM/DL [facility] Hematocrit 23.0 (L) 40.1 - 51.0 % [facility] Specimen Blood Performing Organization Address [facility] one Number [address] [place] [address] [facility] * CBC (Hemogram only) (01/18/2019 2:51 AM COMPUTER REPAIR TECHNICIAN) Only the most recent of 5 results within the time period is included. WBC 6.6 3.5 - 10.5 K/L [facility] RBC 2.11 (L) 4.63 - 6.08 M/L [facility] Hemoglobin 6.7 (L) 13.7 - 17.5 GM/DL [facility] Hematocrit 20.2 (L) 40.1 - 51.0 % [facility] MCV 95.7 (H) 79.0 - 92.2 fL [facility] MCH 31.8 25.7 - 32.2 pg [facility] MCHC 33.2 32.3 - 36.5 GM/DL [facility] RDW 17.3 (H) 11.6 - 14.4 % [facility] Platelets 74 (L) 150 - 450 K/CU MM [facility] MPV 10.1 9.4 - 12.4 fL [facility] nRBC 0 0 - 0 /100 WBC [facility] Specimen Blood Performing Organization Address City/State/Zipcode Ph one Number [address] [facility] * HLA TYPING CII (01/16/2019 3:56 PM COMPUTER REPAIR TECHNICIAN) HLA-DR AG1 15 [facility] HLA-DR AG2 4 [facility] HLA-DR AG4-2 53 [facility] HLA-DR AG5-1 51 [facility] HLA-DQA1 AG 1-1 01 [facility] HLA-DQA1 AG 1-2 03 [facility] HLA-DQB1 AG 1-1 6 [facility] HLA-DQB1 AG 1-2 8 [facility] HLA-DPA1 AG 1-1 01 [facility] HLA-DPA1 AG 1-2 01 [facility] HLA-DPB1 AG 1-1 02:01 [facility] HLA-DPB1 AG 1-2 04:02 [facility] Specimen Blood Narrative Performed At Disclaimer: [facility] This test was developed and its perform ance characteristics determined by the [facility] Laboratory. It has not [...] laboratory testing. Performing Organization Address [facility] one Number [facility] ONE [facility] Yovany, MS: [id number], [place] [address] CLIA#[id number] CAP#[id number] UNOS#[id number] * HLA TYPING CI (01/16/2019 3:56 PM COMPUTER REPAIR TECHNICIAN) [facility] HLA-A AG1 3 [facility] HLA-A AG2 68 [facility] HLA-B AG1 7 [facility] HLA-B AG2 35 [facility] HLA-C AG1 7 [facility] HLA-C AG2 7 [facility] HLA-B BW1 6 [facility] HLA-B BW2 6 [facility] Specimen Blood Narrative Performed At Disclaimer: [facility] This test was developed and its perform ance characteristics determined by the [facility] Laboratory. It has not [...] laboratory testing. Performing Organization Address [facility] one Number [facility] Yovany, MS: [id number], [place] [address] CLIA#[id number] CAP#[id number] UNOS#[id number] * FLOW PRA CLASS II WITH REFLEX TO ANTIBODY SPECIFICITY (01/16/2019 3:56 PM COMPUTER REPAIR TECHNICIAN) Flow Class II 0 [facility] Percent TESTING Positive Specimen Blood Narrative Performed At Disclaimer: [facility] This test was developed and its perform ance characteristics determined by the [facility] Laboratory. It has not [...] laboratory testing. Performing Organization Address [facility] one Number [facility] Gregorio Pedroza, MS: [id number], [place] [address] CLIA#[id number] CAP#[id number] UNOS#[id number] * FLOW PRA CLASS I WITH REFLEX TO ANTIBODY SPECIFICITY (01/16/2019 3:56 PM COMPUTER REPAIR TECHNICIAN) Flow Class I 20 [facility] Percent TESTING Positive Specimen Blood Narrative Performed At Disclaimer: [facility] This test was developed and its perform ance characteristics determined by the [facility] Laboratory. It has not [...] laboratory testing. Performing Organization Address [facility] one Number [facility] Gregorio Pedroza, MS: [id number], [place] [address] CLIA#[id number] CAP#[id number] UNOS#[id number] * AB SPECIFICITY CLASS I (01/16/2019 3:56 PM COMPUTER REPAIR TECHNICIAN) AB Specificity NO CLASS I ANTIBODY DETECTED [facility] LA Class I WITH MFIs > 4000 TESTING Specimen Blood Narrative Performed At Disclaimer: [facility] This test was developed and its perform ance characteristics determined by the [facility] Laboratory. It has not [...] laboratory testing. Performing Organization Address [facility] one Number [facility] Yovany, MS: [id number], [place] [address] CLIA#[id number] CAP#[id number] UNOS#[id number] * Alpha fetoprotein (AFP), tumor marker (01/16/2019 3:56 PM COMPUTER REPAIR TECHNICIAN) Alpha-Fetoprote 2.7 <10.0 ng/mL [facility] Specimen Blood Performing Organization Address [facility] one Number [address] [facility] * Drug screen, urine, transplant (01/04/2019 5:39 PM COMPUTER REPAIR TECHNICIAN) Specimen Urine Narrative Performed At This result has an attachment that is n ot available. Performing Organization Address [facility] one Number [email or web address] [address] [phone] * Drug screen, urine, comprehensive (01/04/2019 5:39 PM COMPUTER REPAIR TECHNICIAN) Specimen Urine Narrative Performed At This result has an attachment that is n ot available. * Ethanol (01/04/2019 9:42 AM COMPUTER REPAIR TECHNICIAN) Ethanol Lvl <10 <=10 mg/dL [facility] Specimen Blood Performing Organization Address [facility] one Number [address] [facility] * Vancomycin level, random (12/26/2018 3:56 AM CDT) Only the most recent of 2 results within the time period is included. Vancomycin Rm 16.4 ug/mL [facility] Specimen Blood Narrative Performed At Reference Range: No Normals [facility] Performing Organization Address [facility] one Number [address] [place] [address] [facility] * Venous doppler legs bilateral (12/24/2018 6:55 PM CDT) Ejection [facility] ECHO Fraction [facility] Specimen Impressions Performed At Right Impression [facility] ECHO [facility]ART[facility] 1. There is no deep venous obstruction in the common femoral, prof[facility] femoral, femoral, popliteal, posterior tibial or [...] PV LAB - Lower Extremities DVT Study [facility] ECHO HEART LAB Demographics [facility] Patient Name INDRA GALVAN Date of Study 12/24/2018 YAN CORDERO Age 38 Visit Number [id number] Gender Male Accession Number [id number] Date of 1980 Referring Audie Hoyt MD Room Number 2950 Physician Fellmongering Machine Operator Cb MARINO S Interpreting Physician MELVA Meeks [...] 12/24/2018 YAN CORDERO Age 38 Visit Number [id number] Gender Male Accession Number [id number] Date of 1980 Referring Audie Hoyt MD Room Number 8118 Physician Fellmongering Machine Operator Cb Maki RVS Interpreting Karen Blackwell, [...] are measured in cm Performing Organization Address City/State[facility] one Number [facility] ECHO [facility] * HEMODIALYSIS INPATIENT (12/23/2018 11:25 PM [...] CDT) Specimen Narrative Performed At FINAL REPORT [facility] CT right lower extremity. CLINICAL HISTORY: Knee trauma, tenderne ss or effusion, initial exam (Age > 1y) TECHNIQUE: Contiguous axial images of t he right lower extremity without contrast with coronal and sagit chely reformations. This exam was performed according to the [facility] dose optimization program which includes automated [...] 12/23/2018 03:00:15 Performing Organization Address [facility] one Number [facility] * Vancomycin level, trough (12/22/2018 4:26 PM CDT) Vancomycin Tr 40.3 (HH) 10.0 - 20.0 ug/mL [facility] Specimen Blood Performing Organization Address [facility] one Number [address] [facility] * Fibrinogen (12/22/2018 3:55 AM CDT) Fibrinogen 195 (L) 225 - 434 mg/dl [facility] Specimen Blood Performing Organization Address [facility] one Number [address] [facility] * POC-Lactic Acid, Venous (12/21/2018 4:01 AM CDT) Only the most recent of 2 results within the time period is included. POC-Lactic 1.6Comment: TESTED AT [facility] 0.9 - 1.7 mmol/L [facility] Acid, Venous [address] [place] [id number] [facility] Specimen Blood Performing Organization Address [facility] one Number [address] [facility] * Ammonia (12/21/2018 2:48 AM CDT) Ammonia 65 18 - 72 mol/L [facility] Specimen Blood Performing Organization Address [facility] one Number [address] [facility] * XR knee [...] an d review of old charts. after 12/07/2018 Insurance Type Payer Benefit Subscriber ID Effective Phone Address Plan / Dates Group PPO BLUE CROSS/BLUE SHIELD BCBS PPO [id number] 2017-P [address] EPO resent [id number] [place] [address] [id number] Advance Directives For more information, please contact: [phone] Date Inactivated Comments Code Status Date Activated [...]
--- OUTSIDE RECORDS SUMMARY | 2019-12-08 01:13 | XMS REPORT | Continuity of Care Document ---
Author Author [facility] t Organization [facility] t Address [address] [place] [address] Phone Unavailable Care Team Providers Care Structural Rigger Name Role Phone NO, PCP PCP Unavailable Kenisha CUEVAS Attphys Unavailable Anastacio Killian Attphys Unavailable Anaya MURPHY, Kin Radford Attphys Unavailable Jose Alejandro TRANSMISSION AND COORDINATION ENGINEER, Michael Attphys Unavailable JENNYFER PARKER Attphys Unavailable KHLOE BOX Attphys Unavailable Carlos A FRYE MPH, Laura Merchant Attphys [phone] Dorothy Boss Attphys Unavailable Elton SMITH, Katie Attphys Unavailable Laura Schwartz Attphys Unavailable Tim MURPHY, Brannon Mccartney Attphys Unavailable Steven TRANSMISSION AND COORDINATION ENGINEER, Laine Carreon Attphys Unavailable George MURPHY, Emily Attphys Unavailable Mabel MURPHY, Nay Attphys Unavailable Haley FRYE, Sanjana Valencia Attphys Grzegorz FRYE, Danii Shepard Attphys DANII LANTIGUA Attphys Unavailable Sea SMITH, Abby Attphys Unavailable Marissa Mixon Attphys Unavailable Ady MURPHY, Katie Attphys Unavailable Silvano MURPHY, Delores Attphys Unavailable Anthony HOSPITAL WELLNESS COORDINATOR, Spring Abel Attphys Kenisha Gordillo Attphys Unavailable Charmaine Minor Attphys Lj FRYE, Iman Geronimo Attphys Malou FRYE, Erin Mir Attphys Elsie FRYE, Robina Cummins Attphys [phone] Connie Christensen Attphys Unavailable Eduardo FRYE, Robbie Attphys Chung FRYE, Jerome Ovalle Attphys Dea FRYE, Karey Mcmahan Attphys Sheikh MELVA, Melisa Lamb Attphys Ede RN, Radha Attphys Unavailable IMAN CALHOUN Attphys Unavailable Juan Antonio RN, Servando Attphys Unavailable Alvarez RN, Souraveshmichael Attphys Unavailable Jere RN, Martha Attphys Unavailable Gracie Maldonado MD Attphys Laura Emery Attphys Unavailable Graice MALDONADO ROSAMARIA Attphys Unavailable System, Not In Provider Attphys Unavailable Jaime FRYE, Hiwot Tinoco Attphys Melisa Pool MD Attphys Eliceo FRYE, Lorna Rayo Attphys Hwiot JOHNSON Attphys Unavailable Kendal FRYE, Valeriy Campohish Attphys [phone] OZIEL VALDEZ Attphys Unavailable José Miguel FRYE, Oziel Christie Attphys [phone] Reggie FRYE, Yasmin Fermin Attphys Kenisha Rojas Attphys Unavailable VENTURA BREEN Attphys Unavailable Julia FRYE, Ventura Renee Attphys Brandon FRYE, Zenon Kaufman Attphys [phone] Evelina FRYE, Audie Attphys Melisa Negrete MD Attphys Hemalatha Alfredo Attphys Unavailable BRANDON, ZENON KAUFMAN Attphys Unavailable DUNIA, S MARYLU Attphys Unavailable MANKIINDRA ARAUJO Attphys Unavailable BOCCARDO, KIET Attphys Unavailable JENNYFER PARKER Admphys Unavailable LUKASRONY KHLOE Admphys Unavailable MEADOWS, ERIN SURESH Admphys Unavailable LORNA NORTON Admphys Unavailable Yasmin PADRON Admphys Unavailable MELISA NEGRETE Admphys Unavailable BRANDON, ZENON KAUFMAN Admphys Unavailable MANKIDY, INDRA OWENS Admphys Unavailable BOCCARDO, KIET Admphys Unavailable Payers Payer Name Policy Type Policy Number Effective Date Expiration Date Anton meneses BLUE CROSS/BLUE [employer]IELDBCBS PPO POS EPO [id number], [place] [address]RCR [id number] 2017 00:00:00 [facility] [employer] [facility] Ppo [id number] 2018 00:00:00 [facility] Cdc Review Covid19 [id number] [facility] Problems Condition Name Condition Details Condition Category Status Onset Date Resolution Date Last Treatment Date Treating Clinician Comments Source Sepsis Sepsis Disease Active 2019-05-04 00:00:00 [facility] Symptomatic anemia Symptomatic anemia Disease Active 2019-01-17 00:00:0 0 [facility] Tubular adenoma Tubular adenoma Disease Active 2019-01-17 00:00:00 [facility] Rash Rash Disease Active 2019-01-17 00:00:00 [facility] Screening for cancer Screening for cancer Disease Active 00:00:00 [facility] Alcohol use disorder, mild, abuse Alcohol use disorder, mild, ab use Disease Active 2019-01-17 00:00:00 [facility] Pedal edema Pedal edema Disease Active 2019-01-17 00:00:00 [facility] Hepatic encephalopathy Hepatic encephalopathy Disease Active 2019-01-17 00:00:00 [facility] Alcoholic hepatitis Alcoholic hepatitis Disease Active 2019-01-17 00:00 :00 [facility] Alcoholic cirrhosis Alcoholic cirrhosis Disease Active 2018-12-21 00:00 :00 [facility] Sepsis, unspecified organism Sepsis, unspecified organism Disease Active 2018-12-21 00:00:00 [facility] ESRD (end stage renal disease) ESRD (end stage renal disease) Disea se Active 2018-12-21 00:00:00 [facility] Liver failure Liver failure Disease Active 2018-10-16 00:00:00 [facility] Acute blood loss anemia Acute blood loss anemia Disease Active 2018-06-26 00:00:00 [facility] GIB (gastrointestinal bleeding) GIB (gastrointestinal bleeding) Dis ease Active 2018-06-21 00:00:00 [facility] Hemorrhagic shock Hemorrhagic shock Disease Active 2018-06-21 00:00:00 [facility] Hyperbilirubinemia Hyperbilirubinemia Disease Active 2018-06-01 00:00:0 0 [facility] Sinus tachycardia Sinus tachycardia Disease Active 2018-01-28 00:00:00 [facility] Prediabetes Prediabetes Disease Active 2018-01-28 00:00:00 [facility] Jaundice Jaundice Problem Active [facility] Pneumonia Pneumonia Problem Active [facility] Hepatic cirrhosis Problem Active [facility] Hypovolemic shock Problem Active [facility] Obesity Obesity Disease Active [facility] Fatty liver Fatty liver Disease Active [facility] Dark emesis Dark emesis Disease Active [facility] Hypotension due to hypovolemia Hypotension due to hypovolemia Disease Active [facility] Acute renal failure with tubular necrosis Acute renal failure with tubular necrosis Disease Active [facility] ESRD (end stage renal disease) on dialysis ESRD (end s tage renal disease) on dialysis Disease Active [facility] ESRD on hemodialysis ESRD on hemodialysis Disease Active [facility] History of Past Illness Condition Name Condition Details Condition Category Status Onset Date Resolution Date Last Treatment Date Treating Clinician Comments Source Respiratory center failure Respiratory center failure Disease Resolved 2018-06-01 00:00:00 2018-12-23 00:00:00 2018-12-23 18:37:49 [facility] Acute respiratory failure with hypoxia Acute respiratory ericka lure with hypoxia Disease Resolved 2018-06-01 00:00:00 2018-12-23 00:00:00 2018-12-23 18:37:3 7 [facility] ARDS (adult respiratory distress syndrome) ARDS (adult respiratory distress syndrome) Disease Resolved 2018-06-01 00:00:00 2018-12-23 00:00:00 2 18:37:31 [facility] Acute kidney injury Acute kidney injury Disease Resolved 2018-05 00:00:00 2018-12-23 00:00:00 2018-12-23 18:37:33 [facility] Hyponatremia Hyponatremia Disease Resolved 2018-06-01 00:00:00 2 00:00:00 2018-12-23 18:37:52 [facility] Hypertension Hypertension Disease Resolved 2018-12-23 00: 00:00 2018-12-23 18:37:55 [facility] Allergies, Adverse Reactions, Alerts Allergy Name Allergy Type Status Severity Reaction(s) Onset Date Inacti ve Date Treating Clinician Comments Source Prednisone Drug Intolerance Active 2019-05-04 00:00:00 [facility] Ceftriaxone Drug Allergy Active Rash 2019-01-06 00:00:00 [facility] Family History Family Member Diagnosis Comments Start Date Stop Date Source Natural brother No Known Problem [facility] Natural father Hypertension [facility] Natural mother Hypertension [facility] Natural son No Known Problem [facility] Social History Social Habit Start Date Stop Date Quantity Comments Source Sex Assigned At [facility] Tobacco use and exposure 2019-06-17 00:00:00 2019-06-17 00:00:00 Maci zelaya used [facility] Alcohol intake 2019-06-17 00:00:00 2019-06-17 00:00:00 Current non-drinker of alcohol (finding) [facility] Alcohol Comment 2019-02-04 00:00:00 2019-02-04 00:00:00 quit in 9 [facility] Smoking Status Start Date Stop Date Source Never smoker [facility] Medications Ordered Medication Name Filled Medication Name Start Date Stop Da te Current Medication? Ordering Clinician Indication Dosage Frequency Signature (SIG) Comments Components Source Cholestyramine (Cholestyramine Light Packet) 4 Gm PACK Cholestyramine (Cholestyramine Light Packet) 4 Gm PACK 2019-11-06 18:18:00 Yes 4 Every 6 Hours [facility] Lactulose Lactulose 2019-11-06 18:18:00 Yes 20 Three Times A Day [facility] Rifaximin (Xifaxan) 550 Mg TABLET Rifaximin (Xifaxan) 550 Mg TABLET 2019-11-06 18:18:00 Yes 550 Twice A Day [facility] Sodium Bicarbonate Sodium Bicarbonate 2019-11-06 18:18:00 Yes 1300 Twice A Day [facility] Vancomycin Hcl (Vancocin Hcl) 250 Mg CAPSULE Vancomyci n Hcl (Vancocin Hcl) 250 Mg CAPSULE 2019-11-06 18:18:00 Yes 500 Every 6 Hours [facility] Prednisone Prednisone 2019-10-21 10:46:00 Yes 40 [place] [facility] Propranolol Hcl Propranolol Hcl 2019-10-21 10:46:00 Yes 10 Twice A Day [facility] Sucralfate (Carafate) 1 Gm TABLET Sucralfate (Carafate) 1 Gm TABLET 2019-10-21 10:46:00 Yes 1 Before Meals And At Bedtime [facility] Pantoprazole Sodium (Protonix) 40 Mg TABLET. Pantopr azole Sodium (Protonix) 40 Mg TABLET. 2019-09-27 10:11:00 Yes 40 Before Kindra kfast [facility] traZODone (DESYREL) 50 MG tablet 2019-06-17 10:52:35 Yes 50mg QD Take 50 mg by mouth nightly. [facility] furosemide (LASIX) 10 mg/mL solution 2019-06-17 10:48:04 Ye s QD Take by mouth daily. [facility] colchicine (COLCRYS) 0.6 mg tablet 2019-05-11 00:00:00 23:59:00 No .6mg QD Take 1 tablet (0.6 mg total) by mouth da gunner for 11 days. [facility] FUROSEMIDE ORAL 2019-05-10 14:52:14 2019-05-10 00:00:00 No 80mg QD Take 80 mg by mouth daily . [facility] pantoprazole (PROTONIX) 40 MG tablet 2019-05-10 00:00:00 Ye s 40mg Q.5D Take 1 tablet (40 mg total) by mouth 2 (two) times daily. [facility] UNKNOWN 2019-02-04 09:37:31 2019-02-04 00:00:00 No naus ea as needed Pt takes dissolving tablet for nausea, unsure of name . [facility] UNKNOWN 2019-02-04 09:37:31 2019-02-04 00:00:00 No QD daily Pt states he takes a medication to suppress his alcohol cravings . [facility] thiamine 100 MG tablet 2019-02-04 00:00:00 Yes Portal hypertension (HCC) 100mg QD Take 1 tablet (100 mg total) by mouth daily. [facility] hydrOXYzine (ATARAX) 25 MG tablet 2019-01-16 00:00:00 2018 23:59:00 No Pruritus 25mg Take 1 tablet (2 5 mg total) by mouth every 6 (six) hours as needed for Itching for up to 30 days. [facility] traMADol (ULTRAM) 50 mg tablet 2019-01-06 00:00:00 Yes TK 1 T PO Q 8 H PRN P [facility] diphenhydrAMINE-zinc acetate (BENADRYL EXTRA STRENGTH) 2-0.1 % cream 2019-01-06 00:00:00 2020-01-06 23:59:00 No Apply topically 3 (three) times daily as needed for Itching. [facility] thiamine 100 MG tablet 2018-12-27 00:00:00 2019-02-04 00:00:00 N o 100mg QD Take 1 tablet (100 mg total) by mouth daily. [facility] traZODone (DESYREL) 50 MG tablet 2018-12-26 09:59:28 2018-11 00:00:00 No 50mg QD Take 50 mg by mouth nightly. [facility] midodrine (PROAMATINE) 10 MG tablet 2018-12-26 09:59:2 8 2018-12-26 00:00:00 No 10mg Q.[id number] Take 10 mg by mouth 3 (th ree) times daily. [facility] ondansetron (ZOFRAN-ODT) 4 MG disintegrating tablet 2018-12-26 09:59:28 2018-12-26 00:00:00 No 4mg Take 4 mg by mouth every 6 (six) hours as needed for Nausea. [facility] lactulose (CHRONULAC) 20 gram/30 mL solution 2018-12-26 00:00:00 Yes 30g Q.[id number] Take 45 mLs (30 g total) by mouth 3 ( three) times daily. [facility] midodrine (PROAMATINE) 10 MG tablet 2018-12-26 00:00:00 Yes 10mg Q.[id number] Take 1 tablet (10 mg total) by mouth 3 ( three) times daily. [facility] phytonadione, vitamin K1, (MEPHYTON) 5 mg tablet 2018-12-26 00:00:00 2019-02-04 00:00:00 No 5mg QD Take 1 tablet (5 mg total) by mouth daily. [facility] ciprofloxacin HCl (CIPRO) 500 MG tablet 00:00:00 2018-12-29 23:59:00 No 500mg QD Take 1 tablet (500 mg total) by mouth daily for 3 days. [facility] folic acid (FOLVITE) 1 MG tablet 2018-11-07 00:00:00 2019-10 23:59:00 No 1mg QD Take 1 tablet (1 mg total) by mouth daily. [facility] pantoprazole (PROTONIX) 40 MG tablet 2018-11-07 00:00: 00 2019-05-10 00:00:00 No 40mg QD Take 1 tablet (40 mg total) by mouth [place]. [facility] lactulose (CHRONULAC) 20 gram/30 mL solution 201 11-05-11 00:00:00 2018-12-26 00:00:00 No 30g Q.[id number] Ta ke 45 mLs (30 g total) by mouth 3 (three) times daily. [facility] ipratropium (ATROVENT) 0.02 % nebulizer solution 2018-11-07 00:00:00 2018-12-26 00:00:00 No .5mg Take 2.5 mLs (0.5 mg total) by nebulization every 6 (six) hours as needed. [facility] levoFLOXacin (LEVAQUIN) IVPB 250 mg in dextrose 5% (D5W) 50 mL 2018-11-07 00:00:00 2018-12-26 00:00:00 No 250mg Q24H Inject 50 mLs (250 mg total) intravenously daily. [facility] melatonin 3 mg Tab tablet 2018-11-07 00:00:00 2018-12-26 00:00:0 0 No 6mg Take 2 tablets (6 mg total) by mouth every night as needed. [facility] octreotide (SANDOSTATIN) 100 mcg/mL Soln 2018-10 00:00:00 2018-12-26 00:00:00 No 100ug Q.[id number] In ject 1 mL (100 mcg total) subcutaneously 3 (three) times daily. [facility] phytonadione 0.8 mg/mL Soln ORAL solution 11-07 00:00:00 2018-12-26 00:00:00 No 5mg QD Take 6.25 mLs (5 mg total) by m outh daily. [facility] thiamine (B-1) 100 mg/mL injection 2018-11-07 00:00:00 11-05-30 00:00:00 No 100mg QD Inject 1 mL (100 mg total) intravenously daily. [facility] traZODone (DESYREL) 50 MG tablet 2018-11-07 00:00:00 2018-11 23:59:00 No 50mg Take 1 tablet (50 mg total) by mouth every night as needed for up to 30 days. [facility] midodrine (PROAMATINE) 5 MG tablet 2018-11-07 00:00:00 11-06-11 23:59:00 No 5mg Q.[id number] Take 1 ta blet (5 mg total) by mouth 3 (three) times daily for 30 days. [facility] multivitamin (THERAGRAN) tablet 2018-07-10 00:00:00 23:59:00 No 1{tbl} QD Take 1 tablet by mouth daily. [facility] Folic Acid Folic Acid Yes 1 Daily [facility] Furosemide Furosemide Yes [facility] Hydroxyzine Hcl Hydroxyzine Hcl Yes [facility] Midodrine Hcl Midodrine Hcl Yes [facility] Ondansetron Hcl Ondansetron Hcl Yes 4 [facility] Tramadol Hcl (Ultram 50MG*) 50 Mg TAB Tramadol Hcl (Ultram 50MG*) 5 0 Mg TAB Yes [facility] Trazodone Hcl Trazodone Hcl Yes 50 Bedtime [facility] Hydrochlorothiazide Hydrochlorothiazide 2019-10-21 00:00:00 No 25 Daily [facility] Pantoprazole Sodium (Protonix) 40 Mg TABLET. Pantopr azole Sodium (Protonix) 40 Mg TABLET. 2019-10-21 00:00:00 No [facility] Nifedipine (Nifedipine Er) 30 Mg TAB.ER.24 Nifedipine (Nifedipine Er) 30 Mg TAB.ER.24 2019-10-18 00:00:00 No 30 Twice A Day [facility] Levofloxacin (Levaquin) 500 Mg TABLET Levofloxacin (Levaquin) 50 0 Mg TABLET 2018-05-27 00:00:00 No 500 Daily [facility] Olmesartan Med/Amlodipine/Hctz (Tribenzor 40-5-12.5 Mg Tablet) 1 Each TABLET Olmesartan Med/Amlodipine/Hctz (Tribenzor 40-5-12.5 Mg Tablet) 1 Each TABLET 2018-05-27 00:00:00 No 1 Daily [facility] Pantoprazole Sodium (Protonix) 40 Mg TABLET. Pantopr azole Sodium (Protonix) 40 Mg TABLET. 2018-05-27 00:00:00 No 40 Daily [facility] Vital Signs Vital Name Observation Time Observation Value Comments Source Body Temperature 2019-11-27 11:06:00 98.5 [degF] [facility] Weight 2019-11-26 01:40:00 198.44 [lb_av] [facility] BMI (Body Mass Index) 2019-11-26 01:40:00 26.9 kg/m2 [facility] Body Temperature 2019-11-06 15:00:00 97.9 [degF] [facility] Weight 2019-11-04 07:00:00 215.06 [lb_av] [facility] BMI (Body Mass Index) 2019-11-04 07:00:00 30.0 kg/m2 [facility] Body Temperature 2019-10-21 15:34:00 97.7 [degF] [facility] BMI (Body Mass Index) 2019-10-18 16:11:00 30.7 kg/m2 [facility] Weight 2019-10-18 12:15:00 226 [lb_av] [facility] Body Temperature 2019-09-27 17:18:00 99.0 [degF] [facility] BMI (Body Mass Index) 2019-09-27 09:42:00 26.6 kg/m2 [facility] Weight 2019-09-26 13:55:00 196 [lb_av] [facility] Systolic blood pressure 2019-05-13 10:59:00 115 mm[Hg] [facility] Diastolic blood pressure 2019-05-13 10:59:00 69 mm[Hg] [facility] Heart rate 2019-05-13 10:59:00 90 /min [facility] Body temperature 2019-05-13 10:59:00 36.94 Dariel [facility] Respiratory rate 2019-05-13 10:59:00 18 /min [facility] Body height 2019-05-13 10:59:00 180.3 cm [facility] Body weight 2019-05-13 10:59:00 86.229 kg [facility] BMI 2019-05-13 10:59:00 26.51 kg/m2 [facility] Oxygen saturation in Arterial blood by Pulse oximetry 05-12 10:59:00 100 /min [facility] r Procedures Procedure Date / Time Performed Performing Clinician [facility] e CT of abdomen and pelvis without contrast 2019-11-26 00:00:00 [facility] US Abdomen limited 2019-11-06 00:00:00 [facility] US guided paracentesis 2019-11-06 00:00:00 [facility] INSPECTION OF UPPER INTESTINAL TRACT, ENDO 2019-11-05 00:00:00 [facility] US guided paracentesis 2019-11-02 00:00:00 [facility] PERFORMANCE OF URINARY FILTRATION, <6 HRS/DAY 2019-11-02 00:00:0 0 [facility] TRANSFUSE NONAUT FRESH PLASMA IN CENTRAL VEIN, PERC 2019-11-02 0 0:00:00 [facility] CT of abdomen and pelvis without contrast 2019-11-01 00:00:00 [facility] TRANSFUSE NONAUT RED BLOOD CELLS IN CENTRAL VEIN, PERC 5 00:00:00 [facility] PERFORMANCE OF URINARY FILTRATION, <6 HRS/DAY 2019-10-21 00:00:0 0 [facility] US guided paracentesis 2019-10-19 00:00:00 [facility]RAINAGE OF PERITONEAL CAVITY, PERCUTANEOUS APPROACH 2019-10-19 00:00:00 [facility] TRANSFUSE NONAUT FROZEN PLASMA IN PERIPH VEIN, PERC 2019-10-19 0 0:00:00 [facility] US Abdomen limited 2019-10-18 00:00:[address] [facility] CT of abdomen and pelvis without contrast 2019-10-18 00:00:00 [facility] TRANSFUSE NONAUT RED BLOOD CELLS IN PERIPH VEIN, PERC 2019-10-18 00:00:00 [facility] PERFORMANCE OF URINARY FILTRATION, <6 HRS/DAY 2019-10-18 00:00:0 0 [facility] PERFORMANCE OF URINARY FILTRATION, <6 HRS/DAY 2019-09-27 00:00:0 0 [facility] TRANSFUSE NONAUT RED BLOOD CELLS IN PERIPH VEIN, PERC 2019-09-27 00:00:00 [facility] US abdomen complete 2019-09-26 00:00:00 [facility] PERFORMANCE OF URINARY FILTRATION, <6 HRS/DAY 2019-09-26 00:00:0 0 [facility] TRANSFUSE NONAUT RED BLOOD CELLS IN PERIPH VEIN, PERC 2019-09-26 00:00:00 [facility] MR ABDOMEN WITH & WITHOUT IV CONTRAST 2019-05-23 12:08:00 Stribl ing, Rise J. [facility] BASIC METABOLIC PANEL (7) 2019-05-23 09:03:00 Devyn Lantigua [facility] HEPATIC FUNCTION PANEL 2019-05-23 09:03:00 Devyn Lantigua [facility] PROTHROMBIN TIME/INR 2019-05-23 09:03:00 Devyn Lantigua [facility] CBC W/PLT COUNT & AUTO DIFFERENTIAL 2019-05-23 09:03:00 Alfred Lantigua [facility] RHYTHM STRIP - SCAN 2019-05-15 16:11:24 Provider, Default Scanni loki [facility] MISCELLANEOUS LAB ORDER 2019-05-14 09:30:00 Elsie Palcido David fletcher [facility] PROTHROMBIN TIME/INR 2019-05-14 09:30:00 Devyn Lantigua [facility] HEPATIC FUNCTION PANEL 2019-05-14 09:30:00 Devyn Lantigua [facility] BASIC METABOLIC PANEL (7) 2019-05-14 09:30:00 Devyn Lantigua [facility] BILIRUBIN, DIRECT 2019-05-14 09:30:00 Devyn Lantigua [facility] CBC W/PLT COUNT & AUTO DIFFERENTIAL 2019-05-14 09:30:00 Alfred Lantigua [facility] REPORT OF PROCEDURE - ENDOSCOPY SCAN 2019-05-13 11:03:24 Pro vider, Default Scanning [facility] RHYTHM STRIP - SCAN 2019-05-12 15:11:01 Provider, Default Scaniman [facility] REPORT OF PROCEDURE - ENDOSCOPY SCAN 2019-05-12 15:10:56 Pro vider, Default Scanning [facility] CARDIAC CATH REPORT - SCAN 2019-05-12 15:10:54 Provider, Default Scanning [facility] MAGNESIUM 2019-05-10 05:22:00 Carlos Lyons [facility] PHOSPHORUS 2019-05-10 05:22:00 Carlos Lyons [facility] NM MYOCARDIAL PERFUSION PET/CT (REST & STRESS) 2019-05-09 14:55: 00 Robbie New [facility] TREADMILL TOLERANCE(NON-NUCLEAR TREADMILL) 2019-05-09 14:24: 27 Unknown, Hl7 Doctor [facility] HEMODIALYSIS INPATIENT 2019-05-09 07:47:24 Rosamaria Maldonado [facility] MAGNESIUM 2019-05-09 05:35:00 Serena, Carlos [facility] PHOSPHORUS 2019-05-09 05:35:00 Carlos Lyons [facility] COMPREHENSIVE METABOLIC PANEL 2019-05-09 05:35:00 Kate Guido [facility] CBC W/PLT COUNT & AUTO DIFFERENTIAL 2019-05-09 05:35:00 Kate Truong [facility] TRANSFUSION SERVICE REPORT - SCAN 2019-05-08 17:52:07 Provid er, Default Scanning [facility] LIMITED 2D ECHOCARDIOGRAM 2019-05-08 11:40:31 Robbie New [facility] PROCALCITONIN 2019-05-08 03:02:00 Carlos Lyons [facility] MAGNESIUM 2019-05-08 03:02[facility] 2019-05-08 03:02:00 Serena [facility] BASIC METABOLIC PANEL (7) 2019-05-08 03:02:00 Idris Murry ph [facility] CBC W/PLT COUNT & AUTO DIFFERENTIAL 2019-05-08 03:02:00 Indra Munguia [facility] (CELLAVISION MANUAL DIFF) 2019-05-08 03:02:00 Idris [facility] [facility] HEM[facility] INPATIENT 2019-05-08 00:48:36 Rosamaria Maldonado [facility] PREPARE LEUKO-REDUCED RBC 2019-05-07 23:54:00 Zamzam Correa [facility] PERIPHERAL VASCULAR REPORT - SCAN 2019-05-07 21:12:27 Provid er, Default Scanning [facility] BODY FLUID CULTURE + GRAM STAIN 2019-05-07 19:20:14 Robbie New [facility] CYTOLOGY 2019-05-07 19:20:00 Robbie New [facility] 2D ECHO W/ DOPPLER (CW/PW/COLOR) 2019-05-07 18:32:29 Coreen New [facility] PERICARDIOCENTESIS 2019-05-07 18:18:00 Rbobie [facility] TRANSFUSION SERVICE REPORT - SCAN 2019-05-07 17:52:09 Provid er, Default Scanning [facility] COMPREHENSIVE METABOLIC PANEL 2019-05-07 06:42:00 Suresh Meadowso c [facility] CBC W/PLT COUNT & AUTO DIFFERENTIAL 2019-05-07 06:42:00 Malou Isacc melva Erin [facility] (CELLAVISION MANUAL DIFF) 2019-05-07 06:42:00 Malou Suresh Erin [facility] PREPARE LEUKO-REDUCED RBC 2019-05-06 23:54:00 Jimena Calhoun [facility] TRANSFUSION SERVICE REPORT - SCAN 2019-05-06 18:02:23 Provid er, Default Scanning [facility] CAROTID DOPPLER BILATERAL 2019-05-06 16:05:00 Karen Carranza [facility] REPORT OF PROCEDURE - ENDOSCOPY URL 2019-05-06 13:43:19 Zainab Alves [facility] 2D ECHO W/ DOPPLER (CW/PW/COLOR) 2019-05-06 13:06:03 Coreen New [facility] UPPER ENDOSCOPY 2019-05-06 10:56:00 Zainab Alves [facility] COMPREHENSIVE METABOLIC PANEL 2019-05-06 04:52:00 Angelic Lomeli [facility] MAGNESIUM 2019-05-06 04:52:00 [facility] CBC W/PLT COUNT & AUTO DIFFERENTIAL 2019-05-06 04:52:00 Kin Lomeli [facility] (CELLAVISION MANUAL DIFF) 2019-05-06 04:52:00 Angelic Lomeli [facility] TRANSFUSE LEUKO-REDUCED RED BLOOD CELLS 2019-05-06 03:24:02 [facility] CBC W/PLT COUNT & AUTO DIFFERENTIAL 2019-05-05 21:10:00 Ino Correa [facility] BASIC METABOLIC PANEL (7) 2019-05-05 21:09:00 Zamzam Correa [facility] MAGNESIUM 2019-05-05 21:09:00 Madeline, [facility] TROPONIN I 2019-05-05 21:09:00 Madeline [facility] ECG 12-LEAD 2019-05-05 20:53:39 Unknown, Hl7 [facility] ECG 12-LEAD 2019-05-05 20:52:05 Unknown, Hl7 [facility] ECG 12-LEAD 2019-05-05 19:34:00 Unknown, Hl7 [facility] ECG 12-LEAD 2019-05-05 19:32:27 Unknown, 7 [facility] TRANSFUSION SERVICE REPORT - SCAN 2019-05-05 17:52:36 Provid er, Default [facility] HEMODIALYSIS INPATIENT 2019-05-05 15:16:18 Rosamaria Maldonado [facility] HEPATITIS B SURFACE ANTIGEN 2019-05-05 15:02:00 Christopher Maldonado [facility] OCCULT BLOOD, STOOL 2019-05-05 12:07:00 [facility] COMPREH[facility] MET[facility]OLIC PANEL 2019-05-05 09:51:00 [facility] RETICULOCYTE COUNT 2019-05-05 09:51:00 [facility] BILIRUBIN, DIRECT 2019-05-05 09:51:[facility]-05-05 09:51:00 [facility] IRON, TIBC, % SAT. (WITHOUT FERRITIN) 2019-05-05 09:51:00 [facility] DIRECT AHG (LUMA)/DIRECT ANTONIA 2019-05-05 09:51:00 [facility] ABORH, MANUAL 2019-05-05 09:51:00 [facility] CBC W/PLT COUNT & AUTO DIFFERENTIAL 2019-05-05 09:51:00 Kin Lomeli [facility] TRANSFUSE LEUKO-REDUCED RED BLOOD CELLS 2019-05-05 08:35:39 Lj, [facility] TRANSFUSE LEUKO-REDUCED RED BLOOD CELLS 2019-05-05 01:08:39 Lj, [facility] LACTIC ACID, VENOUS 2019-05-05 00:29:00 Lj, [facility] ECG 12-LEAD 2019-05-05 00:27:17 Unknown, Hl7 [facility] TYPE AND SCREEN, AUTOMATED 2019-05-04 20:42:00 Lj, Jimena Dalton [facility] URINE CULTURE 2019-05-04 19:53:00 Lj, [facility] URINALYSIS W/ REFLEX URINE CULTURE 2019-05-04 19:53:00 Lj, Terrence lew [facility] LEGIONELLA URINE ANTIGEN 2019-05-04 19:53:00 Lj, [facility] BLOOD CULTURE 2019-05-04 19:29:00 Lj, [facility] MAGNESIUM 2019-05-04 19:29:00 Lj, [facility] PHOSPHORUS 2019-05-04 19:29:00 Lj, [facility] B-TYPE NATRIURETIC FACTOR (BNP) 2019-05-04 19:29:00 Lj, [facility] PT/APTT 2019-05-04 19:29:00 Lj, [facility] TROPONIN I 2019-05-04 19:29:00 Lj, [facility] COMPREHENSIVE METABOLIC PANEL 2019-05-04 19:29:00 Lj, Jimena roberts [facility] LACTIC ACID, VENOUS 2019-05-04 19:29:00 Lj, [facility] PROCALCITONIN 2019-05-04 19:29:00 Lj, [facility] CBC W/PLT COUNT & AUTO DIFFERENTIAL 2019-05-04 19:29:00 Lj, Emigdio spangler [facility] RAPID INFLUENZA A&B SCREEN 2019-05-04 19:28:00 Lj, Jimena franklin [facility] CRITICAL CARE 2019-05-04 18:47:50 LjJimena [facility] XR CHEST 1 VIEW PORTABLE/BEDSIDE 2019-05-04 18:05:00 Anderson Calhoun [facility] BASIC METABOLIC PANEL (7) 2019-04-07 09:34:00 Devyn Lantigua [facility] HEPATIC FUNCTION PANEL 2019-04-07 09:34:00 Devyn Lantigua [facility] PROTHROMBIN TIME/INR 2019-04-07 09:34:00 Devyn Lantigua [facility] CBC W/PLT COUNT & AUTO DIFFERENTIAL 2019-04-07 09:34:00 Alfred Lantigua [facility] BASIC METABOLIC PANEL (7) 2019-03-14 10:32:00 Devyn Lantigua [facility] HEPATIC FUNCTION PANEL 2019-03-14 10:32:00 Devyn Lantigua [facility] PROTHROMBIN TIME/INR 2019-03-14 10:32:00 Devyn Lantigua [facility] CBC W/PLT COUNT & AUTO DIFFERENTIAL 2019-03-14 10:32:00 Alfred Lantigua [facility] BILIRUBIN, DIRECT 2019-03-04 10:00:00 Devyn Lantigua [facility] COMPREHENSIVE METABOLIC PANEL 2019-03-04 10:00:00 Devyn Lantigua [facility] CBC W/PLT COUNT & AUTO DIFFERENTIAL 2019-03-04 10:00:00 Alfred Lantigua [facility] PROTHROMBIN TIME/INR 2019-03-04 09:55:00 Devyn Lantigua [facility] BILIRUBIN, DIRECT 2019-02-03 10:13:00 Perri Norton [facility] COMPREHENSIVE METABOLIC PANEL 2019-02-03 10:13:00 Perri Norton [facility] PROTHROMBIN TIME/INR 2019-02-03 10:12:00 Perri Norton [facility] CBC W/PLT COUNT & AUTO DIFFERENTIAL 2019-02-03 10:12:00 Perri Norton [facility] US PELVIS WITH DOPPLER 2019-02-03 09:35:00 Rosamaria Maldonado [facility] RHYTHM STRIP - SCAN 2019-01-21 11:42:13 Provider, Default [facility] RHYTHM STRIP - SCAN 2019-01-20 16:02:13 Provider, Default [facility] RHYTHM STRIP - SCAN 2019-01-20 16:02:12 Provider, Default [facility] TRANSFUSION SERVICE REPORT - SCAN 2019-01-19 18:00:57 Provid er, Default [facility] PREPARE LEUKO-REDUCED RBC 2019-01-18 23:55:00 Perri Norton [facility] TRANSFUSION SERVICE REPORT - SCAN 2019-01-18 18:03:07 Provid er, Default [facility] FERRITIN 2019-01-18 17:47:00 Litzylaura [facility] IRON, TIBC, % SAT. (WITHOUT FERRITIN) 2019-01-18 17:47:00 Kristal alvarado [facility] LACTATE DEHYDROGENASE (LDH) 2019-01-18 17:47:00 Chele [facility] HAPTOGLOBIN 2019-01-18 17:47:00 Chele [facility] VITAMIN B12 AND FOLATE 2019-01-18 17:47:00 Chele [facility] ULTRAFILTRATION HD CRRT 2019-01-18 15:13:25 Roseanne Zelaya [facility] HEMOGLOBIN AND HEMATOCRIT 2019-01-18 11:17:00 Ye Pool [facility] CBC (HEMOGRAM ONLY) 2019-01-18 02:51:00 Ye Pool Benji [facility] TRANSFUSE LEUKO-REDUCED RED BLOOD CELLS 2019-01-17 23:33:32 Ye Pool Benji [facility] TRANSFUSE LEUKO-REDUCED RED BLOOD CELLS 2019-01-17 22:39:14 Ye Pool [facility] HEMODIALYSIS INPATIENT 2019-01-17 21:29:31 Garcia Roseanne [facility] TYPE AND SCREEN, AUTOMATED 2019-01-17 15:35:00 Perri Norton [facility] HLA TYPING CI 2019-01-16 15:56:00 Rosamaria Maldonado [facility] HLA TYPING CII 2019-01-16 15:56:00 Rosamaria Maldonado [facility] FLOW PRA CLASS I WITH REFLEX TO ANTIBODY SPECIFICITY 2018-12 15:56:00 Rosamaria Maldonado [facility] FLOW PRA CLASS II WITH REFLEX TO ANTIBODY SPECIFICITY 2018-02 15:56:00 Rosamaria Maldonado [facility] BASIC METABOLIC PANEL (7) 2019-01-16 15:56:00 Carley Boston [facility] HEPATIC FUNCTION PANEL 2019-01-16 15:56:00 Carley Boston [facility] PROTHROMBIN TIME/INR 2019-01-16 15:56:00 Darvin [facility] Ohionilsa Charmaine [facility] ALPHA FETOPROTEIN (AFP), TUMOR MARKER 2019-01-16 15:56:00 Carley Boston Charmaine [facility] AB SPECIFICITY CLASS I 2019-01-16 15:56:00 Rosamaria Maldonado [facility] CBC W/PLT COUNT & AUTO DIFFERENTIAL 2019-01-16 15:56:00 Frederick Boston Charmaine [facility] RHYTHM STRIP - SCAN 2019-01-08 09:10:11 Provider, Default Scanni loki [facility] TRANSFUSION SERVICE REPORT - SCAN 2019-01-06 17:50:45 Provid er, Default Scanning [facility] MISCELLANEOUS LAB ORDER 2019-01-06 06:01:00 Erik De Leon [facility] CBC (HEMOGRAM ONLY) 2019-01-06 06:01:00 ReggieJeny boyle V. [facility] BASIC METABOLIC PANEL (7) 2019-01-06 06:01:00 Reggie Jeny DengFredy [facility] MAGNESIUM 2019-01-06 06:01:00 ReggieRj [facility] PROT[facility]/INR 2019-01-06 06:01:00 Reggie Rjoquossoc IshFredy [facility] HEPATIC FUNCTION PANEL 2019-01-06 06:01:00 [facility]ossoc [facility] PREPARE LEUKO-REDUCED RBC 2019-01-05 23:54:00 Vimal Breen [facility] TRANSFUSION SERVICE REPORT - SCAN 2019-01-05 17:50:34 Provid er, Default Scanning [facility] CBC (HEMOGRAM ONLY) 2019-01-05 04:30:00 Reggie [facility] BASIC METABOLIC PANEL (7) 2019-01-05 04:30:00 Reggie Rjoquossoc IshFredy [facility] MAGNESIUM 2019-01-05 04:30:00 Reggie [facility] HEPATIC FUNCTION PANEL 2019-01-05 04:30:00 Reggie [facility] PROTHROMBIN TIME/INR 2019-01-05 04:30:00 [facility] LEUKO-REDUCED RBC 2019-01-04 23:54:00 Pratik Valdez [facility] TRANSFUSION SERVICE REPORT - SCAN 2019-01-04 17:53:27 Provid er, Default Scanning [facility] DRUG SCREEN, URINE, COMPREHENSIVE 2019-01-04 17:39:00 Laine Roper [facility] DRUG SCREEN, URINE, TRANSPLANT 2019-01-04 17:39:00 [facility] TRANSFUSE LEUKO-REDUCED RED BLOOD CELLS 2019-01-04 14:09:28 Vimal Breen [facility] ETHANOL 2019-01-04 09:42:00 Kai Roper [facility] BASIC METABOLIC PANEL (7) 2019-01-04 04:07:00 Vimal Breen [facility] HEPATIC FUNCTION PANEL 2019-01-04 04:07:00 Vimal Breen [facility] CBC W/PLT COUNT & AUTO DIFFERENTIAL 2019-01-04 04:07:00 Vimal Parsons [facility] TRANSFUSE LEUKO-REDUCED RED BLOOD CELLS 2019-01-04 01:55:28 Pratik Valdez [facility] TYPE AND SCREEN, AUTOMATED 2019-01-03 21:56:00 Pratik Valdez [facility] BASIC METABOLIC PANEL (7) 2019-01-03 21:54:00 Pratik Valdez [facility] HEPATIC FUNCTION PANEL 2019-01-03 21:54:00 Pratik Valdez [facility] PT/APTT 2019-01-03 21:54:00 Pratik Valdez [facility] CBC W/PLT COUNT & AUTO DIFFERENTIAL 2019-01-03 21:54:00 Kin Valdez [facility] REPORT OF PROCEDURE - ENDOSCOPY SCAN 2018-12-31 12:52:49 Pro vider, Default Scanning [facility] TRANSFUSION SERVICE REPORT - SCAN 2018-12-27 18:02:58 Provid er, Default Scanning [facility] RHYTHM STRIP - SCAN 2018-12-27 16:04:17 Provider, Default Scanni [facility] PREPARE LEUKO-REDUCED RBC 2018-12-26 23:54:00 Audie Hoyt CH, I [facility] TRANSFUSION SERVICE REPORT - SCAN 2018-12-26 18:02:50 Provid er, Default Scanning [facility] VANCOMYCIN LEVEL, RANDOM 2018-12-26 03:56:00 Maurice Stern [facility] BASIC METABOLIC PANEL (7) 2018-12-26 03:56:00 Landy Springer [facility] MAGNESIUM 2018-12-26 03:56:00 Landy Springer Luisa [facility] PHOSPHORUS 2018-12-26 03:56:00 Gian [facility] HAPTOGLOBIN 2018-12-26 03:56:00 Audie Hoyt [facility] HEPATIC FUNCTION PANEL 2018-12-26 03:56:00 Kai Roper [facility] CBC W/PLT COUNT & AUTO DIFFERENTIAL 2018-12-26 03:56:00 Anahicarekenisha shook [facility] PERIPHERAL VASCULAR REPORT - SCAN 2018-12-25 21:23:01 Provid er, Default Scanning [facility] TRANSFUSE LEUKO-REDUCED RED BLOOD CELLS 2018-12-25 11:12:26 Audie Huerta [facility] TYPE AND SCREEN, AUTOMATED 2018-12-25 08:51:00 Audie Hoyt [facility] BLOOD CULTURE 2018-12-25 08:25:00 Sydney Vasquez [facility] BASIC METABOLIC PANEL (7) 2018-12-25 03:46:00 [facility] 2018-12-25 03:46:00 Gian [facility] PHOSPHORUS 2018-12-25 03:46:00 Gian [facility] HEPATIC FUNCTION PANEL 2018-12-25 03:46:00 Placido Zimmerman [facility] PROTHROMBIN TIME/INR 2018-12-25 03:46:00 Placido Zimmerman [facility] LACTATE DEHYDROGENASE (LDH) 2018-12-25 03:46:00 Kai Roper [facility] CBC W/PLT COUNT & AUTO DIFFERENTIAL 2018-12-25 03:46:00 Sharad shook [facility] VENOUS DOPPLER LEGS BILATERAL 2018-12-24 18:55:00 Audie Hoyt [facility] TRANSFUSION SERVICE REPORT - SCAN 2018-12-24 18:02:36 Provid er, Default Scanning [facility] BASIC METABOLIC PANEL (7) 2018-12-24 03:18:00 CiccarellLandy jeffery [facility] MAGNESIUM 2018-12-24 03:18:00 CiccarellLandy jefferyHope [facility] PHOSPHORUS 2018-12-24 03:18:00 Ciccarellrafaela [facility] CBC W/PLT COUNT & AUTO DIFFERENTIAL 2018-12-24 03:18:00 Ciccarel bouchra [facility] PREPARE LEUKO-REDUCED RBC 2018-12-23 23:54:00 Omero Moura [facility] HEMODIALYSIS INPATIENT 2018-12-23 23:25:30 Adri Soler CH I [facility] CBC (HEMOGRAM ONLY) 2018-12-23 20:04:00 Maurice Stern [facility] TRANSFUSION SERVICE REPORT - SCAN 2018-12-23 18:01:02 Provid er, Default Scanning [facility] BASIC METABOLIC PANEL (7) 2018-12-23 04:01:00 Ciccarebrennan [facility] MAGNESIUM 2018-12-23 04:01:00 Ciccarellrafaela [facility] PHOSPHORUS 2018-12-23 04:01:00 Ciccarerafaela [facility] VANCOMYCIN LEVEL, RANDOM 2018-12-23 04:01:00 [facility] ANTIGEN 2018-12-23 04:01:00 Adri Soler [facility] CBC W/PLT COUNT & AUTO DIFFERENTIAL 2018-12-23 04:01:00 Ciccarel bouchra [facility] PREPARE LEUKO-REDUCED RBC 2018-12-22 23:54:00 Víctor Breen [facility] CT LOWER EXTREMITY WITHOUT IV CONTRAST RIGHT 2018-12-22 21:0 4:00 Omero Moura [facility] TRANSFUSION SERVICE REPORT - SCAN 2018-12-22 18:01:22 Provid er, Default Scanning [facility] VANCOMYCIN LEVEL, TROUGH 2018-12-22 16:26:00 Ian Shmuel [facility] CBC (HEMOGRAM ONLY) 2018-12-22 16:26:00 Christy [facility] TRANSFUSE LEUKO-REDUCED RED BLOOD CELLS 2018-12-22 11:21:40 Omero Moura [facility] XR CHEST 1 VIEW PORTABLE/BEDSIDE 2018-12-22 05:29:00 [facility] BASIC METABOLIC PANEL (7) 2018-12-22 03:56:00 [facility] 2018-12-22 03:56:00 [facility] 2018-12-22 03:56:00 [facility] LACTIC ACID, VENOUS 2018-12-22 03:56:00 [facility] CBC W/PLT COUNT & AUTO DIFFERENTIAL 2018-12-22 03:56:00 Ciccarel bouhcra [facility] FIBRINOGEN 2018-12-22 03:55:00 [facility] HEMATOCRIT 2018-12-21 08:29:00 [facility] TRANSFUSE LEUKO-REDUCED RED BLOOD CELLS 2018-12-21 07:30:55 Julia [facility] POCT-LACTIC ACID, VENOUS 2018-12-21 04:01:00 Víctor Breen Ma [facility] BLOOD CULTURE 2018-12-21 03:04:00 Víctor [facility] AMMONIA 2018-12-21 02:48:00 Julia [facility] PROCALCITONIN 2018-12-21 02:48:00 Julia [facility] POCT-LACTIC ACID, VENOUS 2018-12-21 02:01:00 Víctor Breen Ma [facility] BLOOD CULTURE 2018-12-21 01:54:00 Julia V[facility]ctor [facility] COMPREHENSIVE METABOLIC PANEL 2018-12-21 01:53:00 JuliaGavino [facility] TROPONIN I 2018-12-21 01:53:00 [place] PT/APTT 2018-12-21 01:53:00 [place] MAGNESIUM 2018-12-21 01:53:00 [facility] TYPE AND SCREEN, AUTOMATED 2018-12-21 01:53:00 [place] [facility] CBC W/PLT COUNT & AUTO DIFFERENTIAL 2018-12-21 01:53:00 [place] XR CHEST 1 VIEW PORTABLE/BEDSIDE 2018-12-21 01:39:00 [facility]stadt[facility]isha [facility] XR KNEE RIGHT COMPLETE (4 VIEWS) 2018-12-21 01:39:00 [facility]stadt[facility]isha [facility] ECG 12-LEAD 2018-12-21 01:18:37 Unknown, Hl7 [facility] CRITICAL CARE 2018-12-21 01:10:14 [facility] Plan of Care Planned Activity Planned Date Details Comments Source Future Scheduled Test 2021-06-18 00:00:00 Lipid panel (proce dure) [code = 58043347] [facility] Future Scheduled Test 2019-11-27 00:00:00 IMM Influenza Seas onal Nov to April (>/= 19 yrs) [code = IMM Influenza Seasonal Nov to April (>/= 19 yrs)] Located Within [facility] Future Scheduled Test 2019-10-28 00:00:00 INFLUENZA VACCINE (#1) [code = INFLUENZA VACCINE (#1)] [facility] r Instructions Anemia [facility] Encounters Start Date/Time End Date/Time Encounter Type Admission Type [facility] Care Department Encounter ID Source 2018-01-28 08:27:[address] [facility] [id number] Located [facility] 2018-01-28 01:10:06 [place] [id number] Located [facility] 2018-01-27 00:00:00 Inpatient [place] [id number] Located [facility] 2018-01-25 00:00:00 [place]patient [place] [id number] Located [facility] 2019-11-26 11:21:00 2019-11-26 11:21:00 Admitted Inpatient [address] [facility] [id number] [facility] Patients [facility] 2019-11-01 22:00:00 2019-11-06 19:30:00 Discharged Inpatient [address] [facility] [id number] [facility] 2019-10-18 10:09:00 2019-10-21 16:45:00 Discharged Inpatient [address] [facility] [id number] [facility] - Patients [facility] 2019-09-26 18:04:00 2019-09-27 19:03:00 Discharged Inpatient [address] [facility] [id number] [facility] 2019-01-09 00:00:00 2019-01-09 00:00:[address] [facility] [id number] [facility] 2018-10-16 12:41:00 2018-10-16 12:41:00 Registered Emergency Room 1 MARYLU DUQUE [facility] [id number] [facility] 2018-09-05 00:00:00 2018-09-05 00:00:[address] [facility] [id number] [facility] 2018-06-19 00:00:00 2018-06-19 00:00:[address] [facility] [id number] Loc[facility] 2018-05-27 18:25:00 2018-06-01 07:30:00 Discharged Inpatient 1 KIET DUMAS [facility] [id number] [facility] 2018-01-30 00:00:00 2018-01-30 00:00:[address] [facility] [id number] [facility] 2018-01-29 00:00:00 2018-01-29 00:00:[address] [facility] [id number] Located [facility] 2018-01-24 21:17:42 2018-01-24 21:17:[address] [facility] [id number] Located [facility] 2018-01-24 20:24:34 2018-01-24 20:24:[address] [facility] [id number] Located [facility] 2018-01-24 17:21:24 2018-01-24 17:21:24 Inpatient [facility] [id number] Loc[facility] Results Test Description Test Time Test Comments Results Result Comments Source CHEST SINGLE (PORTABLE) 2019-12-08 00:52:00 [place] [address] Patient Name: INDRA GALVAN JR MR #: [id number] : 1980 Age/Sex: 39/M Req #: [id number] Adm Physician: Ordered by: JIMENA CUEVAS MD Report #: [id number] Location: ER Room/Bed: Procedure: [id number] DX/CHEST SINGLE (PORTABLE) Exam Date: Exam Time: REPORT STATUS: Signed EXAMINATION: CHEST SINGLE (PORTABLE) INDICATION: EVAL FOR PULMONARY EDEMA COMPARISON: Multiple priors. FINDINGS: TUBES and LINES: Right IJ dual-lumen dialysis catheter projects over the right atrium. LUNGS: Low lung volumes. Strandy and bandlike opacities in the left lower lobe, unchanged, likely atelectasis. Pulmonary vessels are within normal limits for technique and lung volumes. PLEURA: No pleural effusion or pneumothorax. HEART AND MEDIASTINUM: The cardiomediastinal silhouette is unremarkable. IMPRESSION: Pulmonary vascular congestion. No edema. Unchanged left basilar atelectasis. Signed by: Keith Beck MD on 12/08/2019 12:59 AM Dictated By: KEITH BECK MD Transcribed By: CATERINA on 12/08/1960 COPY TO: JIMENA CUEVAS MD CT BRAIN WO 2019-12-08 00:21:00 [place] [address] Patient Name: INDRA GALVAN JR MR #: [id number] : 1980 Age/Sex: 39/M Req #: [id number] Adm Physician: Ordered by: JIMENA CUEVAS MD Report #: [id number] Location: ER Room/Bed: Procedure: [id number] CT/CT BRAIN WO Exam Date: Exam Time: REPORT STATUS: Signed Exam: Head CT without contrast History: Trauma, fall, dizziness Comparison studies: None Technique: Axial images were obtained from the skull base to the vertex. Coronal and sagittal images reconstructed from the axial data. Dose modulation, iterative reconstruction, and/or weight based adjustment of the mA/kV was utilized to reduce the radiation dose to as low as reasonably achievable. Radiation dose: Total DLP: 921 mGy*cm. Estimated effective dose: DLP x 0.015 Intravenous contrast: None Findings: Scalp: No abnormalities. Bones: No fractures, blastic or lytic lesions. Brain sulci: Mildly prominent. Ventricles: Mild compensatory dilatation. No hydrocephalus. Extra-axial spaces: Incidental magna cisterna magna. No mass or fluid collection. Parenchyma: No abnormal densities. No masses, hemorrhage, acute or chronic vascular insults. Sellar/suprasellar region: No abnormalities. Craniocervical junction: Patent foramen magnum. No Chiari one malformation. Included paranasal sinuses: Clear. Middle ear cavities and included mastoids: Clear. Incidental findings: Atherosclerotic calcifications in the carotid siphons. IMPRESSION: 1. No acute abnormalities. 2. Mild generalized parenchymal volume loss. Signed by: Dr. Kirt Brooks M.D. on 12/08/2019 12:27 AM Dictated By: KIRT BROOKS MD Transcribed By: CATERINA on 12/[birth year]/1926 COPY TO: JIMENA CUEVAS MD Blood leukocytes automated count (number/volume) 2019-11-27 05:14:00 Test Item White Blood Count (test code = 6690-2) 16.04 4.8-10.8 [facility]villeBlood erythrocytes automated count (number/volume)2019-11-27 05:14:00* Test Item Value Reference Range Interpretation Comments Red Blood Count (test code = 789-8) 2.93 4.3-5.7 [facility]villeBlood hemoglobin measurement (moles/volume)2019-11-27 05:14:00* Test Item Value Reference Range Interpretation Comments Hemoglobin (test code = 52317-9) 9.4 14.0-18.0 [facility] GreenvilleAutomated blood hematocrit (volume fraction)2019-11-27 05:14:00* Test Item Value Reference Range Interpretation Comments Hematocrit (test code = 4544-3) 26.4 38.2-49.6 [facility] GreenvilleAutomated erythrocyte mean corpuscular isrduv9308-71-97 05:14:00* Test Item Value Reference Range Interpretation Comments Mean Corpuscular Volume (test code = 787-2) 90.1 81-99 [facility] GreenvilleAutomated erythrocyte mean corpuscular hemoglobin (mass per erythrocyte)2019-11-27 05:14:00* Test Item Value Reference Range Interpretation Comments Mean Corpuscular Hemoglobin (test code = 785-6) 32.1 28-32 [facility] GreenvilleAutomated erythrocyte mean corpuscular hemoglobin concentration measurement (mass/volume)2019-11-27 05:14:00* Test Item Value Reference Range Interpretation Comments Mean Corpuscular Hemoglobin Concent (test code = 786-4) 35.6 31-35 [facility] GreenvilleRDW StbKq-Ktg2383-39-01 05:14:00* Test Item Value Reference Range Interpretation Comments Red Cell Distribution Width (test code = 04488-6) 18.9 11.7 -14.4 [facility] GreenvilleAutomated blood platelet count (count/volume)2019-11-27 05:14:00* Test Item Value Reference Range Interpretation Comments Platelet Count (test code = 777-3) 36 140-360 Results repeated and called to ADAMS SHEEHAN RN at 0558 on 11/27/19 by Al stahl. Read back and verified.[facility] GreenvilleAutomated blood segmented neutrophil count as percentage of total egungowesy8957-73-38 05:14:00* Test Item Value Reference Range Interpretation Comments Neutrophils (%) (Auto) (test code = 67035-0) 89.7 38.7-80.0 [facility]villeAutadventhealth hendersonvilleed blood lymphocyte count as percentage ot total ngtlswaxvg5019-64-84 05:14:00* Test Item Value Reference Range Interpretation Comments Lymphocytes (%) (Auto) (test code = 736-9) 3.9 18.0-39.1 [facility] GreenvilleAutomated blood monocyte count as percentage of total qzbrkixteg6633-48-64 05:14:00* Test Item Value Reference Range Interpretation Comments Monocytes (%) (Auto) (test code = 5905-5) 5.1 4.4-11.3 [facility]villeAutadventhealth [facility]villeed blood eosinophil count as percentage of total asfwhejtcp7931-36-74 05:14:00* Test Item Value Reference Range Interpretation Comments Eosinophils (%) (Auto) (test code = 713-8) 0.1 0.0-6.0 [facility] GreenvilleAutomated blood basophil count as percentage of total rhrahajkou2279-21-57 05:14:00* Test Item Value Reference Range Interpretation Comments Basophils (%) (Auto) (test code = 706-2) 0.1 0.0-1.0 [facility] GreenvilleFluoroscopic procedure less than one hour bwmvznok0029-76-18 05:14:00* Test Item Value Reference Range Interpretation Comments IM GRANULOCYTES % (test code = IM GRANULOCYTES %) 1.1 0.0- 1.0 [facility] GreenvilleAutomated blood neutrophil count 2019-11-27 05:14:00* Test Item Value Reference Range Interpretation Comments Neutrophils # (Auto) (test code = 751-8) 14.4 2.1-6.9 [facility]villeBlood lymphocytes count (number/volume) 2019-11-27 05:14:00* Test Item Value Reference Range Interpretation Comments Lymphocytes # (Auto) (test code = 46980-0) 0.6 1.0-3.2 [facility] monocytes automated count (number/volume)2019-11-27 05:14:00* Test Item Value Reference Range Interpretation Comments Monocytes # (Auto) (test code = 742-7) 0.8 0.2-0.8 [facility] GreenvilleAutomated blood eosinophil count 2019-11-27 05:14:00* Test Item Value Reference Range Interpretation Comments Eosinophils # (Auto) (test code = 711-2) 0.0 0.0-0.4 [facility]villeAutadventhealth hendersonvilleed blood basophil count (count/volume)2019-11-27 05:14:00* Test Item Value Reference Range Interpretation Comments Basophils # (Auto) (test code = 704-7) 0.0 0.0-0.1 [facility] GreenvilleFluoroscopic procedure less than one hour ychcmkai1074-55-21 05:14:00* Test Item Value Reference Range Interpretation Comments Absolute Immature Granulocyte (auto (doug t code = Absolute Immature Granulocyte (auto) 0.17 0-0.1 [facility] GreenvilleFluoroscopic procedure less than one hour dcyngzgy6599-48-65 05:14:00* Test Item Value Reference Range Interpretation Comments Differential Total Cells Counted (test code = Differen tial Total Cells Counted) 100 [facility] blood neutrophils/100 leukocytes 2019-11-27 05:14:00* Test Item Value Reference Range Interpretation Comments Neutrophils % (Manual) (test code = 72799-0) 95 40-74 [facility] blood lymphocytes/100 leukocytes 2019-11-27 05:14:00* Test Item Value Reference Range Interpretation Comments Lymphocytes % (Manual) (test code = 737-7) 3 19-48 [facility] blood monocytes/100 leukocytes 2019-11-27 05:14:00* Test Item Value Reference Range Interpretation Comments Monocytes % (Manual) (test code = 744-3) 2 3.4-9.0 [facility] platelets count by estimate (number/volume)2019-11-27 05:14:00* Test Item Value Reference Range Interpretation Comments Platelet Estimate (test code = 47077-5) MARKEDLY DECREASED [facility] GreenvillePlatelet mjipccgoci1142-83-32 05:14:00* Test Item Value Reference Range Interpretation Comments Platelet Morphology Comment (test code = 76241-2) NORMAL [facility] dacrocytes detection by light ogjzclrhdv5784-99-05 05:14:00* Test Item Value Reference Range Interpretation Comments Tear Drop Cells (test code = 7791-7) FEW [facility] helmet cells detection by light riecbrsiwv5206-12-39 05:14:00* Test Item Value Reference Range Interpretation Comments Helmet Cells (test code = 00139-8) RARE [facility] gilles cells detection by light invigmvgmt1339-07-59 05:14:00* Test Item Value Reference Range Interpretation Comments [place] Cells (test code = 7790-9) SLIGHT [facility] acanthocytes detection by light yptcdzenfy5936-24-89 05:14:00* Test Item Value Reference Range Interpretation Comments Acanthocytes (test code = 7789-1) FEW [facility] GreenvilleRB xedbglpasl4855-71-06 05:14:00* Test Item Value Reference Range Interpretation Comments Red Cell Morphology Comment (test code = 6742-1) ABNORMAL [facility] GreenvilleProthrombin time (PT) in platelet poor plasma by coagulation hjffg7882-19-32 17:38:00* Test Item Value Reference Range Interpretation Comments Prothrombin Time (test code = 5902-2) 19.2 11.9-14.5 [facility] GreenvilleINR in Platelet poor plasma by Coagulation gsoxi7485-41-76 17:38:00* Test Item Value Reference Range Interpretation Comments Prothromb Time International Ratio (test code = 6301-6) 1.54 Oral Anticoagulant Therapy INR Values:1. Low Intensity Therapy 1.5 - 2.02 . Moderate Intensity Therapy 2.0 - 3.03. High Intensity Therapy(1) 2.5 - 3. 54. High Intensity Therapy(2) 3.0 - 4.05. Panic Value INR > 5.0 [facility] GreenvilleFibrin D-dimer DDU measurement in platelet poor plasma (mass/volume)2019-11-26 17:38:00* Test Item Value Reference Range Interpretation Comments D-Dimer Quantitative (PE/DVT) (test code = 24156-6) 9.05 0. 00-0.45 [facility] GreenvilleFibrinogen measurement in platelet poor plasma by coagulation assay (mass/volume)2019-11-26 17:38:00* Test Item Value Reference Range Interpretation Comments Fibrinogen (test code = 3255-7) 223 204462 [facility] GreenvilleCT ABDOMEN/PELVIS NN3492-37-16 16:43:00 [facility] [address] [place] [address] Patient Name: INDRA GALVAN JR MR #: [id number] : Age/Sex: 39/M Req #: [id number] Adm Physician: JENNYFER PARKER MD Ordered by: LITZY FRYE, VIRGILIO FRYE Report #: [id number] Location: [facility] Room/Bed: [facility] Procedure: [id number] CT /CT ABDOMEN/PELVIS WO Exam Date: 11/26/19 [...] COPY TO: VIRGILIO GALEANA Stool gastrointestinal hemoglobin fqopbxvjw9258-87-11 10:10:00* Test Item Value Reference Range Interpretation Comments Stool Occult Blood (test code = 2335-8) NEGATIVE NEGATIVE [facility]Eryth[facility] sedimentation rate by Westergren wimwqb4319-14-19 08:43:00* Test Item Value Reference Range Interpretation Comments Erythrocyte Sedimentation Rate (test code = 4537-7) 9 0- 13 [facility] GreenvilleAutomated reticulocyte count as percentage of total wsrzzdrmficp5158-19-57 08:43:00* Test Item Value Reference Range Interpretation Comments Percent Reticulocyte Count (test code = 49765-7) 3.1 0.8-2 .2 [facility] or plasma iron measurement (mass/volume)2019-11-26 08:43:00* Test Item Value Reference Range Interpretation Comments Iron Level (test code = 2498-4) 83 65-175 [facility] Resourceserum or plasma transferrin measurement (mass/volume)2019-11-26 08:43:00* Test Item Value Reference Range Interpretation Comments Transferrin (test code = 3034-6) < 70 174-364 [facility] Resourceser[facility] or plasma ferritin measurement (mass/volume)2019-11-26 08:43:00* Test Item Value Reference Range Interpretation Comments Ferritin (test code = 2276-4) 2887.60 21.81-274.66 [facility] Resourceserum or plasma lactate dehydrogenase measurement (enzymatic activity/volume)2019-11-26 08:43:00* Test Item Value Reference Range Interpretation Comments Lactate Dehydrogenase (test code = 099349522) 155 125-220 [facility]villeBlood cobalamin (vitamin B12) measurement (mass/volume)2019-11-26 08:43:00* Test Item Value Reference Range Interpretation Comments Vitamin B12 Level (test code = 61234-5) 1952 213-816 [facility] Resourceser[facility] or plasma folate measurement (mass/volume)2019-11-26 08:43:00* Test Item Value Reference Range Interpretation Comments Folate (test code = 2284-8) 6.0 >3.0 A serum folate concentration of less than 3.1 ng/mL isconsidered to represent cl inical deficiency.Performed at: - [address] [id number] Director: Alli Georges MD, Phone: [phone] [facility] Center at GreenvilleBlood polychromasia detection by light microscopy 2019-11-26 06:55:00* Test Item Value Reference Range Interpretation Comments Polychromasia (test code = 85890-7) FEW [facility]villeBlbuffalo hospital macrocytes detection by light mmhszcxuco0033-44-49 06:55:00* Test Item Value Reference Range Interpretation Comments Macrocytosis (test code = 738-5) SLIGHT [facility] target cells detection by light tdeywurhlx1395-33-95 06:55:00* Test Item Value Reference Range Interpretation Comments Target Cells (test code = 56629-8) FEW [facility] GreenvilleBlbuffalo hospital schistocytes detection by light shelkmjhbn4095-23-40 06:55:00* Test Item Value Reference Range Interpretation Comments Schistocytes (test code = 800-3) FEW [facility]er[facility] or plasma sodium measurement (moles/volume)2019-11-26 06:55:00* Test Item Value Reference Range Interpretation Comments Sodium Level (test code = 2951-2) 136 136-145 [facility] Resourceserum or plasma potassium measurement (moles/volume)2019-11-26 06:55:00* Test Item Value Reference Range Interpretation Comments Potassium Level (test code = 2823-3) 3.1 3.5-5.1 [facility] Resourceserum or plasma chloride measurement (moles/volume)2019-11-26 06:55:00* Test Item Value Reference Range Interpretation Comments Chloride Level (test code = 2075-0) 100 98-107 [facility] Resourceserum or plasma carbon dioxide, total measurement (moles/volume)2019-11-26 06:55:00* Test Item Value Reference Range Interpretation Comments Carbon Dioxide Level (test code = 2028-9) 26 22-29 [facility] Resourceserum or plasma anion vhn6967-34-07 06:55:00* Test Item Value Reference Range Interpretation Comments Anion Gap (test code = 29425-5) 13.1 8-16 [facility]erum or plasma urea nitrogen measurement (mass/volume)2019-11-26 06:55:00* Test Item Value Reference Range Interpretation Comments Blood Urea Nitrogen (test code = 3094-0) 16 7-26 [facility]erum or plasma creatinine measurement (mass/volume)2019-11-26 06:55:00* Test Item Value Reference Range Interpretation Comments Creatinine (test code = 2160-0) 3.06 0.72-1.25 [facility] Resourceserum or plasma urea nitrogen/creatinine mass wjbni6332-71-01 06:55:00* Test Item Value Reference Range Interpretation Comments BUN/Creatinine Ratio (test code = 3097-3) 5 6-25 [facility] GreenvilleEstimated glomerular filtration rate (GFR) lvjtngydwaiez7194-35-94 06:55:00* Test Item Value Reference Range Interpretation Comments Estimat Glomerular Filtration Rate (test code = 335964119) 23 >60 Ranges were taken from the National Kidney Disease Education Program and the [facility] literature.Reference ranges:60 or greater: Zghrzm57-32 ( for 3 consecutive months): Chronic kidney disease 15 or less: Kidney failureHunt Regional Medical Center at GreenvilleGlucose pnibvfchzek0228-34-92 06:55:00* Test Item Value Reference Range Interpretation Comments Glucose Level (test code = TBO8772) 115 74-118 [facility]erum or plasma calcium measurement (mass/volume)2019-11-26 06:55:00* Test Item Value Reference Range Interpretation Comments Calcium Level (test code = 21981-5) 7.4 8.4-10.2 [facility] Resourceserum or plasma total bilirubin measurement (mass/volume)2019-11-26 06:55:00* Test Item Value Reference Range Interpretation Comments Total Bilirubin (test code = 1975-2) 27.3 0.2-1.2 [facility] Resourceserum or plasma conjugated bilirubin measurement (mass/volume)2019-11-26 06:55:00* Test Item Value Reference Range Interpretation Comments Direct Bilirubin (test code = 55306-2) 18.7 0.0-0.5 [facility] GreenvilleFluoroscopic procedure less than one hour tjelndwe3324-41-94 06:55:00* Test Item Value Reference Range Interpretation Comments Aspartate Amino Transf (AST/SGOT) (test code = Aspartate Amino Transf (AST/SGOT)) 76 5-34 [facility]erum or plasma alanine aminotransferase measurement (enzymatic activity/volume)2019-11-26 06:55:00* Test Item Value Reference Range Interpretation Comments Alanine Aminotransferase (ALT/SGPT) (test code = 1742-6) 43 0-55 [facility] Resourceserum or plasma protein measurement (mass/volume)2019-11-26 06:55:00* Test Item Value Reference Range Interpretation Comments Total Protein (test code = 2885-2) 3.7 6.5-8.1 [facility] Resourceserum or plasma albumin measurement (mass/volume)2019-11-26 06:55:00* Test Item Value Reference Range Interpretation Comments Albumin (test code = 1751-7) 2.1 3.5-5.0 [facility] Resourceserum or plasma alkaline phosphatase measurement (enzymatic activity/volume)2019-11-26 06:55:00* Test Item Value Reference Range Interpretation Comments Alkaline Phosphatase (test code = 6768-6) 105 40-150 [facility] GreenvilleFluoroscopic procedure less than one hour vtqwsxas7074-39-49 04:55:00* Test Item Value Reference Range Interpretation Comments Coronavirus (PCR) (test code = Coronavirus (PCR)) NOT DETECTED NOTD ETECTED SARS-CoV-2 PCRHologic Aptima SARS-CoV-2 assay is a nucleic amplification test in tended for the qualitative detection of RNA from SARS-CoV-2 from nasopharyngeal (HOSPITAL WELLNESS COORDINATOR) specimens. It is used under Emergency Use [...] repr at testing oc clinically indicated.Tesing performed by:[facility] Laboratory Services[address] [place] [id number], Jimena madden MD, PhDHunt Regional Medical Center at GreenvilleCHES SINGLE (PORTABLE) 2019-11-25 23:16:00 [facility] [address] [address] Patient Name: INDRA GALVAN JR MR #: [id number] : 1980 Age/Sex: 39/M Req #: [id number] Adm Physician: Ordered by: JIMENA CUEVAS MD Report #: [id number] Location: ER Room/Bed: Procedure: [id number] [id number] DX/CHEST SINGLE (PORTABLE) Exam Date: 11/25/19 E xam Time: 2200 REPORT STATUS: [place] d EXAMINATION: CHEST SINGLE [...] in platelet poor plasma by coagulat ion luilp8229-85-41 21:07:00* Test Item Value Reference Range Interpretation Comments Activated Partial Thromboplast Time (test code = 79353-3) 52.2 23.8-35.5 [facility] GreenvilleUS GUIDED XCNUJAPZRWGV6432-39-07 14:54:00 [facility] [address] [address] Patient Name: INDRA GALVAN JR MR #: [id number] : Age/Sex: 38/M Req #: [id number] Adm Physician: JENNYFER PARKER MD Ordered by: MORGAN ROBERTSON MD Report #: [id number] Location: [facility] Room/Bed: [address] [address] Procedure: US /US GUIDED PARACENTESIS Exam Date: 11/02/19 Exam Fernando e: 1102 REPORT STATUS: Signed SD OCEDURE: Ultrasound-guided diagnostic paracentesis Procedural Personnel A [...] PM Dictat ed By: SONIA MORA MD 55 Transcribed By: CATERINA on 11/10/19 145 COPY TO: MORGAN ROBERTSON MD US GUIDED XZCHBOMJTRRL3406-74-08 15:06:00 [address] [address] Patient Name: INDRA GALVAN JR MR #: [id number] : 1980 Age/Sex: 38/M Req #: [id number] Adm Physician: JENNYFER PARKER MD Ordered by: MORGAN ROBERTSON MD Report #: [id number] Location: [facility] Room/Bed: [address] [address] Procedure: [id number] US /US GUIDED PARACENTESIS Exam Date: 11/06/19 Exam Fernando e: 1340 REPORT STATUS: Signed SD OCEDURE: Ultrasound-guided paracentesis Procedural Personnel Attending ysician(s): [...] 3:07 PM Dictated By: SRINIVASAN CHIANG MD COPY TO: MORGAN ROBERTSON MD Blood leukocytes automated count (number/volume)2019-11-06 14:30:00* Test Item Value Reference Range Interpretation Comments White Blood Count (test code = 6690-2) 12.13 4.8-10.8 [facility]villeBlood erythrocytes automated count (number/volume)2019-11-06 14:30:00* Test Item Value Reference Range Interpretation Comments Red Blood Count (test code = 789-8) 3.14 4.3-5.7 [facility]villeBlood hemoglobin measurement (moles/volume)2019-11-06 14:30:00* Test Item Value Reference Range Interpretation Comments Hemoglobin (test code = 55216-6) 9.9 14.0-18.0 [facility] GreenvilleAutomated blood hematocrit (volume fraction)2019-11-06 14:30:00* Test Item Value Reference Range Interpretation Comments Hematocrit (test code = 4544-3) 28.6 38.2-49.6 [facility] GreenvilleAutomated erythrocyte mean corpuscular inbnet1837-32-17 14:30:00* Test Item Value Reference Range Interpretation Comments Mean Corpuscular Volume (test code = 787-2) 91.1 81-99 [facility] GreenvilleAutomated erythrocyte mean corpuscular hemoglobin (mass per erythrocyte)2019-11-06 14:30:00* Test Item Value Reference Range Interpretation Comments Mean Corpuscular Hemoglobin (test code = 785-6) 31.5 28-32 [facility] GreenvilleAutomated erythrocyte mean corpuscular hemoglobin concentration measurement (mass/volume)2019-11-06 14:30:00* Test Item Value Reference Range Interpretation Comments Mean Corpuscular Hemoglobin Concent (test code = 786-4) 34.6 31-35 [facility] at GreenvilleRDW LzgUx-Cun7820-29-10 14:30:00* Test Item Value Reference Range Interpretation Comments Red Cell Distribution Width (test code = 75768-0) 19.1 11.7 -14.4 [facility] GreenvilleAutomated blood platelet count (count/volume)2019-11-06 14:30:00* Test Item Value Reference Range Interpretation Comments Platelet Count (test code = 777-3) 45 140-360 Results repeated and called to OSCAR NGUYỄN at 1439 on 11/06/19 by VICKY MANN. Read back and verified.[facility] GreenvilleAutomated blood segmented neutrophil count as percentage of total grczfdtoxe9775-04-01 14:30:00* Test Item Value Reference Range Interpretation Comments Neutrophils (%) (Auto) (test code = 09169-8) 79.8 38.7-80.0 [facility] GreenvilleAutomated blood lymphocyte count as percentage ot total geqclaitud0640-84-50 14:30:00* Test Item Value Reference Range Interpretation Comments Lymphocytes (%) (Auto) (test code = 736-9) 3.6 18.0-39.1 [facility] GreenvilleAutomated blood monocyte count as percentage of total iturkkijun9553-31-56 14:30:00* Test Item Value Reference Range Interpretation Comments Monocytes (%) (Auto) (test code = 5905-5) 10.3 4.4-11.3 [facility] GreenvilleAutomated blood eosinophil count as percentage of total gvflevakbz5531-06-86 14:30:00* Test Item Value Reference Range Interpretation Comments Eosinophils (%) (Auto) (test code = 713-8) 4.4 0.0-6.0 [facility] GreenvilleAutomated blood basophil count as percentage of total loggweqpim6160-21-42 14:30:00* Test Item Value Reference Range Interpretation Comments Basophils (%) (Auto) (test code = 706-2) 0.8 0.0-1.0 [facility] GreenvilleFluoroscopic procedure less than one hour wvudipkh4136-89-63 14:30:00* Test Item Value Reference Range Interpretation Comments IM GRANULOCYTES % (test code = IM GRANULOCYTES %) 1.1 0.0- 1.0 [facility] GreenvilleAutomated blood neutrophil count 2019-11-06 14:30:00* Test Item Value Reference Range Interpretation Comments Neutrophils # (Auto) (test code = 751-8) 9.7 2.1-6.9 [facility] GreenvilleBlood lymphocytes count (number/volume) 2019-11-06 14:30:00* Test Item Value Reference Range Interpretation Comments Lymphocytes # (Auto) (test code = 52909-8) 0.4 1.0-3.2 [facility] GreenvilleBlood monocytes automated count (number/volume)2019-11-06 14:30:00* Test Item Value Reference Range Interpretation Comments Monocytes # (Auto) (test code = 742-7) 1.3 0.2-0.8 [facility] GreenvilleAutomated blood eosinophil count 2019-11-06 14:30:00* Test Item Value Reference Range Interpretation Comments Eosinophils # (Auto) (test code = 711-2) 0.5 0.0-0.4 [facility] GreenvilleAutomated blood basophil count (count/volume)2019-11-06 14:30:00* Test Item Value Reference Range Interpretation Comments Basophils # (Auto) (test code = 704-7) 0.1 0.0-0.1 [facility] GreenvilleFluoroscopic procedure less than one hour mmcuzdgf1971-49-43 14:30:00* Test Item Value Reference Range Interpretation Comments Absolute Immature Granulocyte (auto (doug t code = Absolute Immature Granulocyte (auto) 0.13 0-0.1 [facility] Resourcespecimen source identification of body ffdsr1530-69-26 13:55:00* Test Item Value Reference Range Interpretation Comments Body Fluid Type (test code = 15223-0) PERITONEAL [facility] GreenvilleEvaluation of color of body fluid 2019-11-06 13:55:00* Test Item Value Reference Range Interpretation Comments Body Fluid Color (test code = 6824-7) STRAW AMBERH[facility] Center at GreenvilleDetermination of appearance of body bwbfr8303-71-89 13:55:00* Test Item Value Reference Range Interpretation Comments Body Fluid Appearance (test code = 9335-1) CLOUDY [facility] GreenvilleManual body fluid leukocytes count (number/volume)2019-11-06 13:55:00* Test Item Value Reference Range Interpretation Comments Body Fluid WBC (test code = 6743-9) 17 [facility]villeMan[facility] erythrocytes count (number/volume)2019-11-06 13:55:00* Test Item Value Reference Range Interpretation Comments Body Fluid RBC (test code = 6741-3) 1469 [facility] body fluid neutrophils/100 lsdoalkojm2077-89-73 13:55:00* Test Item Value Reference Range Interpretation Comments Body Fluid Neutrophils (test code = 09807-9) 10 [facility] GreenvilleBody fluid lymphocyte szpvx1766-86-67 13:55:00* Test Item Value Reference Range Interpretation Comments Body Fluid Lymphocytes (test code = 99616691) 58 [facility] GreenvilleBody fluid monocyte wysqg0074-81-31 13:55:00* Test Item Value Reference Range Interpretation Comments Body Fluid Monocytes (test code = 34097-8) 32 [facility] GreenvilleTotal cell ycpjp5269-67-33 13:55:00* Test Item Value Reference Range Interpretation Comments Body Fluid Total Cells Counted (test code = 40597-3) 100 [facility] Resourcespecimen source identification of body szhju2846-86-39 13:55:00* Test Item Value Reference Range Interpretation Comments Body Fluid Type (test code = 74932-1) PERITONEAL [facility] GreenvilleEvaluation of color of body fluid 2019-11-06 13:55:00* Test Item Value Reference Range Interpretation Comments Body Fluid Color (test code = 6824-7) STRAW AMBERH[facility] at GreenvilleDetermination of appearance of body ffhig1266-95-69 13:55:00* Test Item Value Reference Range Interpretation Comments Body Fluid Appearance (test code = 9335-1) CLOUDY [facility]villeMan[facility] body fluid leukocytes count (number/volume)2019-11-06 13:55:00* Test Item Value Reference Range Interpretation Comments Body Fluid WBC (test code = 6743-9) 17 [facility] body fluid erythrocytes count (number/volume)2019-11-06 13:55:00* Test Item Value Reference Range Interpretation Comments Body Fluid RBC (test code = 6741-3) 1469 [facility] GreenvilleManual body fluid neutrophils/100 xykhxztxat4178-20-37 13:55:00* Test Item Value Reference Range Interpretation Comments Body Fluid Neutrophils (test code = 06234-7) 10 [facility] GreenvilleBody fluid lymphocyte mnsln0896-19-81 13:55:00* Test Item Value Reference Range Interpretation Comments Body Fluid Lymphocytes (test code = 67374250) 58 [facility] GreenvilleBody fluid monocyte bbjia0710-39-59 13:55:00* Test Item Value Reference Range Interpretation Comments Body Fluid Monocytes (test code = 83161-5) 32 [facility] GreenvilleTotal cell dmobz3833-97-32 13:55:00* Test Item Value Reference Range Interpretation Comments Body Fluid Total Cells Counted (test code = 11065-1) 100 [facility] GreenvilleUS ABDOMEN DDWZKPF0801-72-07 12:21:00 [facility] [address] [place] [address] Patient Name: INDRA GALVAN JR MR #: [id number] : Age/Sex: 38/M Req #: [id number] Adm Physician: JENNYFER PARKER MD Ordered by: MORGAN ROBERTSON MD Report #: [id number] Location: [facility] Room/Bed: [place] [address] Procedure: [id number] US /US ABDOMEN LIMITED Exam Date: 11/06/19 [...] Level (test code = 2951-2) 138 136-145 [facility] Resourceserum or plasma potassium measurement (moles/volume)2019-11-06 04:30:00* Test Item Value Reference Range Interpretation Comments Potassium Level (test code = 2823-3) 3.8 3.5-5.1 [facility] Resourceserum or plasma chloride measurement (moles/volume)2019-11-06 04:30:00* Test Item Value Reference Range Interpretation Comments Chloride Level (test code = 2075-0) 105 98-107 [facility] [place] [facility] Resourceserum or plasma carbon dioxide, total measurement (moles/volume)2019-11-06 04:30:00* Test Item Value Reference Range Interpretation Comments Carbon Dioxide Level (test code = 2028-9) 19 22-29 [facility] [place] [facility] Resourceserum or plasma anion mlx0102-14-99 04:30:00* Test Item Value Reference Range Interpretation Comments Anion Gap (test code = 86311-4) 17.8 8-16 [facility] [place] [facility] Resourceserum or plasma urea nitrogen measurement (mass/volume)2019-11-06 04:30:00* Test Item Value Reference Range Interpretation Comments Blood Urea Nitrogen (test code = 3094-0) 22 7-26 [facility] [place] [facility] Resourceserum or plasma creatinine measurement (mass/volume)2019-11-06 04:30:00* Test Item Value Reference Range Interpretation Comments Creatinine (test code = 2160-0) 2.95 0.72-1.25 [facility] [place] [facility] Resourceserum or plasma urea nitrogen/creatinine mass fmyjf1305-55-04 04:30:00* Test Item Value Reference Range Interpretation Comments BUN/Creatinine Ratio (test code = 3097-3) 7 6-25 [facility] GreenvilleEstimated glomerular filtration rate (GFR) fllxhsjihwrsp7036-29-23 04:30:00* Test Item Value Reference Range Interpretation Comments Estimat Glomerular Filtration Rate (test code = 296237068) 24 >60 Ranges were taken from the National Kidney Disease Education Program and the [facility] literature.Reference ranges:60 or greater: Uorgmc56-57 ( for 3 consecutive months): Chronic kidney disease 15 or less: Kidney failureHunt Regional Medical Center at GreenvilleGlucose ctsqbakgpxo3369-08-23 04:30:00* Test Item Value Reference Range Interpretation Comments Glucose Level (test code = CWP7291) 89 74-118 [facility] [place] [facility] Resourceserum or plasma calcium measurement (mass/volume)2019-11-06 04:30:00* Test Item Value Reference Range Interpretation Comments Calcium Level (test code = 80523-2) 7.7 8.4-10.2 [facility] [place] [facility] Resourceserum or plasma total bilirubin measurement (mass/volume)2019-11-06 04:30:00* Test Item Value Reference Range Interpretation Comments Total Bilirubin (test code = 1975-2) > 25.0 0.2-1.2 [facility] GreenvilleFluoroscopic procedure less than one hour yebqvvhr7306-98-89 04:30:00* Test Item Value Reference Range Interpretation Comments Aspartate Amino Transf (AST/SGOT) (test code = Aspartate Amino Transf (AST/SGOT)) 95 5-34 [facility] [place] [facility] Resourceserum or plasma alanine aminotransferase measurement (enzymatic activity/volume)2019-11-06 04:30:00* Test Item Value Reference Range Interpretation Comments Alanine Aminotransferase (ALT/SGPT) (test code = 1742-6) 38 0-55 [facility] [place] [facility] Resourceserum or plasma protein measurement (mass/volume)2019-11-06 04:30:00* Test Item Value Reference Range Interpretation Comments Total Protein (test code = 2885-2) 4.7 6.5-8.1 [facility] [place] [facility] Resourceserum or plasma albumin measurement (mass/volume)2019-11-06 04:30:00* Test Item Value Reference Range Interpretation Comments Albumin (test code = 1751-7) 2.7 3.5-5.0 [facility] GreenvillePlasma globulin measurement (mass/volume) 2019-11-06 04:30:00* Test Item Value Reference Range Interpretation Comments Globulin (test code = 58722-6) 2.0 2.3-3.5 [facility] [place] [facility] Resourceserum or plasma albumin/globulin mass uckeg8689-57-45 04:30:00* Test Item Value Reference Range Interpretation Comments Albumin/Globulin Ratio (test code = 1759-0) 1.4 0.8-2.0 [facility] [place] [facility] Resourceserum or plasma alkaline phosphatase measurement (enzymatic activity/volume)2019-11-06 04:30:00* Test Item Value Reference Range Interpretation Comments Alkaline Phosphatase (test code = 6768-6) 110 40-150 [facility] GreenvillePlasma globulin measurement (mass/volume) 2019-11-06 04:30:00* Test Item Value Reference Range Interpretation Comments Globulin (test code = 61349-9) 2.0 2.3-3.5 [facility] [place] [facility] Resourceserum or plasma albumin/globulin mass hmckk7210-21-21 04:30:00* Test Item Value Reference Range Interpretation Comments Albumin/Globulin Ratio (test code = 1759-0) 1.4 0.8-2.0 [facility] GreenvilleABDOMEN-1VIEW (KUB)2019-11-04 14:26:00 [facility] [address] [place] [address] Patient Name: INDRA GALVAN MR #: [id number] : Age/Sex: 38/M Req #: [id number] Adm Physician: JENNYFER PARKER MD Ordered by: KINDRA NUNEZ MD Report #: [id number] Location: ICU Room/Bed: ICU [facility] Procedure: [id number] DX/A WIN-WandaVIEW (HOA) Exam Date: 11/04/19 Exam Time: 13 50 REPORT STATUS: Signed Exam: K UB - 2 views Indication: Hypovolemic shock Comparison: CT abdomen and pelvis of 11/01/2019 Findings: Several dilated loops of small bowel in the left abdomen measure up to 4.6 cm. No free air. No acute osseous injury. [place] llic embolization coils in the right lower [...] (PT) in platelet poor plasma by coagulation nksjy6142-72-78 05:44:00* Test Item Value Reference Range Interpretation Comments Prothrombin Time (test code = 5902-2) 21.5 11.9-14.5 [facility] GreenvilleINR in Platelet poor plasma by Coagulation avaje0899-91-19 05:44:00* Test Item Value Reference Range Interpretation Comments Prothromb Time International Ratio (test code = 6301-6) 1.77 Oral Anticoagulant Therapy INR Values:1. Low Intensity Therapy 1.5 - 2.02 . Moderate Intensity Therapy 2.0 - 3.03. High Intensity Therapy(1) 2.5 - 3. 54. High Intensity Therapy(2) 3.0 - 4.05. Panic Value INR > 5.0 [facility] [place] [facility] Resourceserum or plasma haptoglobin measurement (mass/volume)2019-11-04 05:44:00* Test Item Value Reference Range Interpretation Comments Haptoglobin (test code = 4542-7) 29 14-477 Performed at: [address] [id number] Patient Information Coordinator: Esdras Lemon MD, Phone: [phone] [facility] between [facility] Resourceserum or plasma haptoglobin measurement (mass/volume)2019-11-04 05:44:00* Test Item Value Reference Range Interpretation Comments Haptoglobin (test code = 4542-7) 29 17-317 Performed at: [address] [id number] Patient Information Coordinator: Esdras Lemon MD, Phone: [phone] [facility] between [facility] [place] [facility] Resourceserum or plasma conjugated bilirubin measurement (mass/volume) 2019-11-03 04:30:00* Test Item Value Reference Range Interpretation Comments Direct Bilirubin (test code = 87675-2) > 15.0 0.0-0.5 [facility] [place] [facility] Resourceserum or plasma indirect bilirubin measurement (mass/volume)2019-11-03 04:30:00* Test Item Value Reference Range Interpretation Comments Indirect Bilirubin (test code = 1971-1) 10.0 0.3-1.2 [facility] [place] [facility] Resourceserum or plasma indirect bilirubin measurement (mass/volume)2019-11-03 04:30:00* Test Item Value Reference Range Interpretation Comments Indirect Bilirubin (test code = 1971-1) 10.0 0.3-1.2 [facility] [place] [facility] Resourceserum hepatitis B virus surface antibody assay by radioimmunoassay (units/volume)2019-11-02 16:20:00* Test Item Value Reference Range Interpretation Comments Hepatitis B Surface Antibody, Quant (test code = 5194-6) 36.0 Immunity>9.9 Status of Immunity Anti-HBs Level Inconsistent with Immunity 0.0 - 9.9Consistent with Immunity >9.9[facility] Centererum or plasma hepatitis B virus core antibody detection by hqkicmzqmej9942-89-66 16:20:00* Test Item Value Reference Range Interpretation Comments Hepatitis B Core Total Antibody (test code = 17024-5) Negative Negative [facility] [place] [facility] Resourceserum or plasma hepatitis B virus core IgM antibody detection by tfcrjyrwotj6358-91-24 16:20:00* Test Item Value Reference Range Interpretation Comments Hepatitis B Core IgM Antibody (test code = 07650-1) Negative Ne gative Performed at: [facility] [id number] Director: Alli Georges MD, Phone: [phone] [facility] between [facility] Resourceserum hepatitis B virus surface antibody assay by radioimmunoassay (units/volume)2019-11-02 16:20:00* Test Item Value Reference Range Interpretation Comments Hepatitis B Surface Antibody, Quant (test code = 5194-6) 36.0 Immunity>9.9 Status of Immunity Anti-HBs Level Inconsistent with Immunity 0.0 - 9.9Consistent with Immunity >9.9[facility] Centererum or plasma hepatitis B virus core antibody detection by rxujrlubwab7630-70-73 16:20:00* Test Item Value Reference Range Interpretation Comments Hepatitis B Core Total Antibody (test code = 45229-1) Negative Negative [facility] [place] [facility] Resourceserum or plasma hepatitis B virus core IgM antibody detection by ycredcwxxbm4967-36-50 16:20:00* Test Item Value Reference Range Interpretation Comments Hepatitis B Core IgM Antibody (test code = 48186-8) Negative Ne gative Performed at: [facility] [id number] Director: Alli Georges MD, Phone: [phone] [facility] between [facility] [place] [facility] Resourceserum or plasma creatine kinase measurement (enzymatic activity/volume) 2019-11-02 15:03:00* Test Item Value Reference Range Interpretation Comments Creatine Kinase (test code = 2157-6) 28 30-200 [facility] [place] [facility] Resourceserum or plasma creatine kinase MB measurement (mass/volume)2019-11-02 15:03:00* Test Item Value Reference Range Interpretation Comments Creatine Kinase MB (test code = 00659-4) 1.10 0-5.0 [facility] GreenvilleTroponin I measurement by highly sensitive enzyme bjqmpnzhjmm4380-13-97 15:03:00* Test Item Value Reference Range Interpretation Comments Troponin I (test code = 30624-2) 0.022 0-0.300 [facility] [place] [facility] Resourceserum or plasma creatine kinase measurement (enzymatic activity/volume)2019-11-02 15:03:00* Test Item Value Reference Range Interpretation Comments Creatine Kinase (test code = 2157-6) 28 30-200 [facility] [place] [facility] Resourceserum or plasma creatine kinase MB measurement (mass/volume)2019-11-02 15:03:00* Test Item Value Reference Range Interpretation Comments Creatine Kinase MB (test code = 13363-5) 1.10 0-5.0 [facility] GreenvilleTroponin I measurement by highly sensitive enzyme xrwacibwppe5154-66-99 15:03:00* Test Item Value Reference Range Interpretation Comments Troponin I (test code = 70995-4) 0.022 0-0.300 [facility] GreenvilleBody fluid other cells manual count 2019-11-02 11:20:00* Test Item Value Reference Range Interpretation Comments Body Fluid Other Cells (test code = 337064568) 2 [facility] GreenvilleBody fluid other cells manual count 2019-11-02 11:20:00* Test Item Value Reference Range Interpretation Comments Body Fluid Other Cells (test code = 097564308) 2 [facility] Resourcestool lactoferrin bnzbitdof6244-45-36 05:00:00* Test Item Value Reference Range Interpretation Comments Stool Lactoferrin (LAB) (test code = 83344-5) POSITIVE NEGATIVE Testing on stool aspirate specimens is outside grain roaster claims since specime n type not validated on this assay.[facility] [place] [facility] Resourceserum or plasma folate measurement (mass/volume)2019-11-02 05:00:00* Test Item Value Reference Range Interpretation Comments Folate (test code = 2284-8) 9.0 >3.0 A serum folate concentration of less than 3.1 ng/mL isconsidered to represent cl inical deficiency.Performed at: [address] [id number] Director: Alli Georges MD, Phone: [phone] Regional Medical Center at GreenvilleClostridium difficile A and B toxin fhsha3141-47-05 05:00:00* Test Item Value Reference Range Interpretation Comments Clostridium Difficile Toxin A & B (test code = 139576079) POSI TIVE NEGATIVE Results called to OSCAR NGUYỄN at 1309 on 11/02/19 by Rafia Arita. JOSE LUIS burgos called to JIMENA TINSLEY in infection control at 1309 on 11/02/19 by Rafia Arita.Testing on stool aspirate specimens is outside grain roaster claims sin e specimen type not validated on this assay.[facility] Resourcestool lactoferrin hwsnubunw8225-70-26 05:00:00* Test Item Value Reference Range Interpretation Comments Stool Lactoferrin (LAB) (test code = 62961-7) POSITIVE NEGATIVE Testing on stool aspirate specimens is outside grain roaster claims since specime n type not validated on this assay.[facility] Resourcestool calprotectin measurement (mass/mass)2019-11-02 05:00:00* Test Item Value Reference Range Interpretation Comments Stool Calprotectin (test code = 60377-6) 192 0-120 Concentration Interpretation Follow-Up<16 - 50 ug/g Normal None>50 -120 ug/g Borderline Re-evaluate in 4-6 weeks >120 ug/g Abnormal Repeat as clinically indicatedPerformed at: - [facility] [id number] Director: Esdras Lemon MD, Phone: [phone] Regional Medical Center at GreenvilleClostridium difficile A and B toxin cwkcm5635-98-23 05:00:00* Test Item Value Reference Range Interpretation Comments Clostridium Difficile Toxin A & B (test code = 041164491) POSI TIVE NEGATIVE Results called to OSCAR NGUYỄN at 1309 on 11/02/19 by Rafia Arita. JOSE LUIS burgos called to JIMENA TINSLEY in infection control at 1309 on 11/02/19 by Rafia Arita.Testing on stool aspirate specimens is outside grain roaster claims sin e specimen type not validated on this assay.[facility] GreenvilleAutomated reticulocyte count as percentage of total uuclzppwvmcg8273-44-65 04:50:00* Test Item Value Reference Range Interpretation Comments Percent Reticulocyte Count (test code = 40628-4) 1.9 0.8-2 .2 [facility] GreenvilleActivated partial thromboplastin time (aPTT) in platelet poor plasma by coagulation qdunk8027-42-88 04:50:00* Test Item Value Reference Range Interpretation Comments Activated Partial Thromboplast Time (test code = 11866-0) 61.2 23.8-35.5 [facility] GreenvillePhosphorus uycnsitlgnj6854-07-01 04:50:00 * Test Item Value Reference Range Interpretation Comments Phosphorus Level (test code = ICY9181) 4.2 2.3-4.7 [facility] Resourceserum or plasma magnesium measurement (mass/volume)2019-11-02 04:50:00* Test Item Value Reference Range Interpretation Comments Magnesium Level (test code = 94287-4) 1.9 1.3-2.1 [facility] [place] [facility] Resourceserum or plasma iron measurement (mass/volume)2019-11-02 04:50:00* Test Item Value Reference Range Interpretation Comments Iron Level (test code = 2498-4) 128 65-175 [facility] [place] [facility] Resourceserum or plasma iron binding capacity measurement (mass/volume)2019-11-02 04:50:00* Test Item Value Reference Range Interpretation Comments Total Iron Binding Capacity (test code = 2500-7) 115 261-4 78 [facility] [place] [facility] Resourceserum or plasma iron saturation measurement (mass fraction)2019-11-02 04:50:00* Test Item Value Reference Range Interpretation Comments Percent Iron Saturation (test code = 2502-3) 111 15-50 [facility] [place] [facility] Resourceserum or plasma transferrin measurement (mass/volume)2019-11-02 04:50:00* Test Item Value Reference Range Interpretation Comments Transferrin (test code = 3034-6) 82 174-364 [facility] [place] [facility] Resourceserum or plasma ferritin measurement (mass/volume)2019-11-02 04:50:00* Test Item Value Reference Range Interpretation Comments Ferritin (test code = 2276-4) > 2000.00 21.81-274.66 [facility] GreenvilleBlood cobalamin (vitamin B12) measurement (mass/volume)2019-11-02 04:50:00* Test Item Value Reference Range Interpretation Comments Vitamin B12 Level (test code = 19750-4) 1729 213-816 [facility] GreenvillePhosphorus kcrfmateper2085-99-92 04:50:00 * Test Item Value Reference Range Interpretation Comments Phosphorus Level (test code = BVO9696) 4.2 2.3-4.7 [facility] [place] [facility] Resourceserum or plasma magnesium measurement (mass/volume)2019-11-02 04:50:00* Test Item Value Reference Range Interpretation Comments Magnesium Level (test code = 75300-7) 1.9 1.3-2.1 [facility] [place] [facility] Resourceserum or plasma iron binding capacity measurement (mass/volume)2019-11-02 04:50:00* Test Item Value Reference Range Interpretation Comments Total Iron Binding Capacity (test code = 2500-7) 115 261-4 78 [facility] [place] [facility] Resourceserum or plasma iron saturation measurement (mass fraction)2019-11-02 04:50:00* Test Item Value Reference Range Interpretation Comments Percent Iron Saturation (test code = 2502-3) 111 15-50 [facility]2020-09-06 01:20:00* Test Item Value Reference Range Interpretation Comments Ammonia (test code = 29157-9) > 1700 31-123 [facility] [place] [facility] Resourceserum or plasma ethanol measurement (mass/volume)2019-11-02 01:20:00* Test Item Value Reference Range Interpretation Comments Ethyl Alcohol Level (test code = 5643-2) < 10.0 0.0-10.0 [facility]2020-09-06 01:20:00* Test Item Value Reference Range Interpretation Comments Ammonia (test code = 13908-7) > 1700 31-123 [facility] [place] [facility] Resourceserum or plasma ethanol measurement (mass/volume)2019-11-02 01:20:00* Test Item Value Reference Range Interpretation Comments Ethyl Alcohol Level (test code = 5643-2) < 10.0 0.0-10.0 [facility] GreenvilleCT ABDOMEN/PELVIS HM8705-55-09 22:20:00 [place] [address] Patient Name: INDRA GALVAN JR MR #: [id number] : Age/Sex: 38/M Req #: [id number] [facility] Physician: JENNYFER PARKER MD Ordered by: MARYLU KELSEY DO Report #: [id number] Location: [facility] Room/Bed: [place] [address] Procedure: [id number] CT/CT ABDOMEN/PELVIS WO Exam Date: 11/01/19 Exam [...] KELSEY, Fluoroscopic procedure less than one hour tncaqzds8776-26-00 22:05:00* Test Item Value Reference Range Interpretation Comments Coronavirus (PCR) (test code = Coronavirus (PCR)) NOT DETECTED NOTD ETECTED SARS-CoV-2 PCRHologic Aptima SARS-CoV-2 assay is a nucleic amplification test in tended for the qualitative detection of RNA from SARS-CoV-2 from nasopharyngeal (HOSPITAL WELLNESS COORDINATOR) specimens. It is used under Emergency Use [...] repr at testing oc clinically indicated.Tesing performed by:[facility] Laboratory Services[address] [place] [address] [id number], Jimena madden MD, PhDCHI [facility] SINGLE (PORTABLE) 2019-11-01 21:37:00 [facility] [address] [address] Patient Name: INDRA GALVAN JR MR #: [id number] : 1980 Age/Sex: 38/M Req #: [id number] Adm Physician: Ordered by: MARYLU KELSEY DO Report #: [id number] Location: ER Room/Bed: Procedure: [id number] DX/CHEST SINGLE (PORTABLE) Exam Date: 11/01/19 Exam [...] DO Fluoroscopic procedure less than one hour lnltlfqa2130-61-97 20:58:00* Test Item Value Reference Range Interpretation Comments Lactic Acid Level (test code = Lactic Acid Level) 1.3 0.5- 2.0 [facility] or plasma lipase measurement (enzymatic activity/volume)2019-11-01 20:58:00* Test Item Value Reference Range Interpretation Comments Lipase (test code = 3040-3) [facility] [id number] 20:58:00* Test Item Value Reference Range Interpretation Comments Blood Culture (test code = 12488179) NO GROWTH AFTER 72 HOURS [facility]villeFluoroscopic procedure less than one hour qnfeezad6224-60-11 20:58:00* Test Item Value Reference Range Interpretation Comments Lactic Acid Level (test code = Lactic Acid Level) 1.3 0.5- 2.0 [facility] or plasma lipase measurement (enzymatic activity/volume)2019-11-01 20:58:00* Test Item Value Reference Range Interpretation Comments Lipase (test code = 3040-3) [facility]ville[facility] ukjadtc0124-27-98 20:58:00* Test Item Value Reference Range Interpretation Comments Blood Culture (test code = 60213568) NO GROWTH AFTER 5 DAYS, FINAL REPORT [facility]villeUrine color meqiresvikxzd8650-50-56 10:50:00* Test Item Value Reference Range Interpretation Comments Urine Color (test code = 5778-6) ORANGE YELLOW [facility]villeUrine pcrzxpc1659-72-02 10:50:00* Test Item Value Reference Range Interpretation Comments Urine Clarity (test code = 78023-8) CLEAR CLEAR [facility] Resourcespecific gravity of Urine by Test strip 2019-10-21 10:50:00* Test Item Value Reference Range Interpretation Comments Urine Specific Raymond (test code = 5811-5) 1.015 1.010-1.02 5 [facility]ville[facility] pH measurement by automated test [id number] 10:50:00* Test Item Value Reference Range Interpretation Comments Urine pH (test code = 07094-1) 5.5 5-7 [facility]ville[facility] leukocyte esterase detection by uqqecjva0214-42-85 10:50:00* Test Item Value Reference Range Interpretation Comments Urine Leukocyte Esterase (test code = 5799-2) NEGATIVE NEGATIVE [facility]ville[facility] nitrite qciayvtby6011-29-69 10:50:00* Test Item Value Reference Range Interpretation Comments Urine Nitrite (test code = 87484-1) NEGATIVE NEGATIVE [facility]ville[facility] protein measurement by test strip (mass/volume)2019-10-21 10:50:00* Test Item Value Reference Range Interpretation Comments Urine Protein (test code = 5804-0) 2+ NEGATIVE [facility]villeU[facility] glucose nglhqcwby2070-00-80 10:50:00* Test Item Value Reference Range Interpretation Comments Urine Glucose (UA) (test code = 2349-9) 1+ NEGATIVE [facility]ville[facility]rine ketones detection by automated test rryvz9867-54-21 10:50:00* Test Item Value Reference Range Interpretation Comments Urine Ketones (test code = 65594-1) 1+ NEGATIVE [facility]ville[facility]rine urobilinogen measurement by test strip (mass/volume)2019-10-21 10:50:00* Test Item Value Reference Range Interpretation Comments Urine Urobilinogen (test code = 44889-7) 8 0.2-1 [facility]ville[facility] total bilirubin measurement (mass/volume)2019-10-21 10:50:00* Test Item Value Reference Range Interpretation Comments Urine Bilirubin (test code = 1978-6) LARGE NEGATIVE [facility]villeU[facility] erythrocytes sxpplsnmr2487-99-01 10:50:00* Test Item Value Reference Range Interpretation Comments Urine Blood (test code = 65881-3) LARGE NEGATIVE [facility] GreenvilleAutomated urine sediment leukocyte count by microscopy (number/high power field)2019-10-21 10:50:00* Test Item Value Reference Range Interpretation Comments Urine WBC (test code = 5821-4) 0-5 0-5 [facility]villeErythrocytes detection in urine sediment by light ypganoxbuo2179-11-38 10:50:00* Test Item Value Reference Range Interpretation Comments Urine RBC (test code = 27119-3) >50 0-5 [facility]villeBacteria detection in urine sediment by light wrwggpplpo3415-66-67 10:50:00* Test Item Value Reference Range Interpretation Comments Urine Bacteria (test code = 64722-5) MANY NONE [facility] GreenvilleEpithelial cells detection in urine sediment by light aiwwbxpnsy8273-61-24 10:50:00* Test Item Value Reference Range Interpretation Comments Urine Epithelial Cells (test code = 89153-6) MODERATE NONE [facility]villeU[facility] color kdtaucohjpvsj6224-06-48 10:50:00* Test Item Value Reference Range Interpretation Comments Urine Color (test code = 5778-6) ORANGE YELLOW [facility]villeUrine havpegd1709-00-43 10:50:00* Test Item Value Reference Range Interpretation Comments Urine Clarity (test code = 92022-0) CLEAR CLEAR [facility]pecific gravity of Urine by Test strip 2019-10-21 10:50:00* Test Item Value Reference Range Interpretation Comments Urine Specific Raymond (test code = 5811-5) 1.015 1.010-1.02 5 [facility]ville[facility] pH measurement by automated test rufrc6488-74-27 10:50:00* Test Item Value Reference Range Interpretation Comments Urine pH (test code = 92648-5) 5.5 5-7 [facility]villeU[facility] leukocyte esterase detection by ypiyaccl2776-79-14 10:50:00* Test Item Value Reference Range Interpretation Comments Urine Leukocyte Esterase (test code = 5799-2) NEGATIVE NEGATIVE [facility]ville[facility] nitrite ziinsmlsc2049-15-10 10:50:00* Test Item Value Reference Range Interpretation Comments Urine Nitrite (test code = 28041-3) NEGATIVE NEGATIVE [facility]ville[facility] protein measurement by test strip (mass/volume)2019-10-21 10:50:00* Test Item Value Reference Range Interpretation Comments Urine Protein (test code = 5804-0) 2+ NEGATIVE [facility]villeU[facility] glucose hdwnmdruf9468-46-22 10:50:00* Test Item Value Reference Range Interpretation Comments Urine Glucose (UA) (test code = 2349-9) 1+ NEGATIVE [facility]ville[facility] ketones detection by automated test ifrym0318-49-49 10:50:00* Test Item Value Reference Range Interpretation Comments Urine Ketones (test code = 22755-9) 1+ NEGATIVE [facility]ville[facility]rine urobilinogen measurement by test strip (mass/volume)2019-10-21 10:50:00* Test Item Value Reference Range Interpretation Comments Urine Urobilinogen (test code = 73708-4) 8 0.2-1 [facility]ville[facility] total bilirubin measurement (mass/volume)2019-10-21 10:50:00* Test Item Value Reference Range Interpretation Comments Urine Bilirubin (test code = 1978-6) LARGE NEGATIVE [facility]villeU[facility] erythrocytes uliekcmzs2172-82-45 10:50:00* Test Item Value Reference Range Interpretation Comments Urine Blood (test code = 45999-0) LARGE NEGATIVE [facility] GreenvilleAutomated urine sediment leukocyte count by microscopy (number/high power field)2019-10-21 10:50:00* Test Item Value Reference Range Interpretation Comments Urine WBC (test code = 5821-4) 0-5 0-5 [facility]villeErythrocytes detection in urine sediment by light pukchzctzy7368-75-94 10:50:00* Test Item Value Reference Range Interpretation Comments Urine RBC (test code = 70933-5) >50 0-5 [facility]villeBacteria detection in urine sediment by light imvmuobwqb6783-58-89 10:50:00* Test Item Value Reference Range Interpretation Comments Urine Bacteria (test code = 30091-8) MANY NONE [facility] GreenvilleEpithelial cells detection in urine sediment by light grlpnnqoxm2791-41-34 10:50:00* Test Item Value Reference Range Interpretation Comments Urine Epithelial Cells (test code = 72869-1) MODERATE NONE [facility]villeU[facility] color zoopexowhnsjm4477-92-54 10:50:00* Test Item Value Reference Range Interpretation Comments Urine Color (test code = 5778-6) ORANGE YELLOW [facility]villeUrine sivdpad0337-59-12 10:50:00* Test Item Value Reference Range Interpretation Comments Urine Clarity (test code = 48255-1) CLEAR CLEAR [facility]pecific gravity of Urine by Test strip 2019-10-21 10:50:00* Test Item Value Reference Range Interpretation Comments Urine Specific Raymond (test code = 5811-5) 1.015 1.010-1.02 5 [facility]ville[facility] pH measurement by automated test obfdj8903-38-91 10:50:00* Test Item Value Reference Range Interpretation Comments Urine pH (test code = 82990-4) 5.5 5-7 [facility]villeU[facility] leukocyte esterase detection by aaikhshq4394-63-20 10:50:00* Test Item Value Reference Range Interpretation Comments Urine Leukocyte Esterase (test code = 5799-2) NEGATIVE NEGATIVE [facility]ville[facility] nitrite dlbqdxsth3206-65-18 10:50:00* Test Item Value Reference Range Interpretation Comments Urine Nitrite (test code = 37889-3) NEGATIVE NEGATIVE [facility]ville[facility] protein measurement by test strip (mass/volume)2019-10-21 10:50:00* Test Item Value Reference Range Interpretation Comments Urine Protein (test code = 5804-0) 2+ NEGATIVE [facility]villeU[facility] glucose qbkqhxugt1507-33-71 10:50:00* Test Item Value Reference Range Interpretation Comments Urine Glucose (UA) (test code = 2349-9) 1+ NEGATIVE [facility]ville[facility] ketones detection by automated test uuniq6929-99-30 10:50:00* Test Item Value Reference Range Interpretation Comments Urine Ketones (test code = 09028-3) 1+ NEGATIVE [facility]ville[facility] urobilinogen measurement by test strip (mass/volume)2019-10-21 10:50:00* Test Item Value Reference Range Interpretation Comments Urine Urobilinogen (test code = 97382-5) 8 0.2-1 [facility]ville[facility] total bilirubin measurement (mass/volume)2019-10-21 10:50:00* Test Item Value Reference Range Interpretation Comments Urine Bilirubin (test code = 1978-6) LARGE NEGATIVE [facility]villeU[facility] erythrocytes faexmivjg3720-21-04 10:50:00* Test Item Value Reference Range Interpretation Comments Urine Blood (test code = 94733-9) LARGE NEGATIVE [facility] GreenvilleAutomated urine sediment leukocyte count by microscopy (number/high power field)2019-10-21 10:50:00* Test Item Value Reference Range Interpretation Comments Urine WBC (test code = 5821-4) 0-5 0-5 [facility]villeErythrocytes detection in urine sediment by light uxnhwsjzpd9346-03-14 10:50:00* Test Item Value Reference Range Interpretation Comments Urine RBC (test code = 90437-3) >50 0-5 [facility]villeBacteria detection in urine sediment by light rtglwhrpnk8528-10-59 10:50:00* Test Item Value Reference Range Interpretation Comments Urine Bacteria (test code = 58686-0) MANY NONE [facility] GreenvilleEpithelial cells detection in urine sediment by light sbdvtavfzr4432-03-25 10:50:00* Test Item Value Reference Range Interpretation Comments Urine Epithelial Cells (test code = 90629-7) MODERATE NONE [facility]er[facility] or plasma total bilirubin measurement (mass/volume)2019-10-21 10:26:00* Test Item Value Reference Range Interpretation Comments Total Bilirubin (test code = 1975-2) > 25.0 0.2-1.2 [facility] Resourceser[facility] or plasma conjugated bilirubin measurement (mass/volume)2019-10-21 10:26:00* Test Item Value Reference Range Interpretation Comments Direct Bilirubin (test code = 95712-7) > 15.0 0.0-0.5 [facility]er[facility] or plasma indirect bilirubin measurement (mass/volume)2019-10-21 10:26:00* Test Item Value Reference Range Interpretation Comments Indirect Bilirubin (test code = 1971-1) 10.0 0.3-1.2 [facility] Resourceser[facility] or plasma sodium measurement (moles/volume)2019-10-21 05:20:00* Test Item Value Reference Range Interpretation Comments Sodium Level (test code = 2951-2) 129 136-145 [facility] Resourceserum or plasma potassium measurement (moles/volume)2019-10-21 05:20:00* Test Item Value Reference Range Interpretation Comments Potassium Level (test code = 2823-3) 3.8 3.5-5.1 [facility] Resourceser[facility] or plasma chloride measurement (moles/volume)2019-10-21 05:20:00* Test Item Value Reference Range Interpretation Comments Chloride Level (test code = 2075-0) 97 98-107 [facility] [place] [facility] Resourceserum or plasma carbon dioxide, total measurement (moles/volume)2019-10-21 05:20:00* Test Item Value Reference Range Interpretation Comments Carbon Dioxide Level (test code = 2028-9) 19 22-29 [facility] Resourceserum or plasma anion sah9158-64-00 05:20:00* Test Item Value Reference Range Interpretation Comments Anion Gap (test code = 46165-2) 16.8 8-16 [facility]er[facility] or plasma urea nitrogen measurement (mass/volume)2019-10-21 05:20:00* Test Item Value Reference Range Interpretation Comments Blood Urea Nitrogen (test code = 3094-0) 30 7-26 [facility] [place] [facility]er[facility] or plasma creatinine measurement (mass/volume)2019-10-21 05:20:00* Test Item Value Reference Range Interpretation Comments Creatinine (test code = 2160-0) 3.84 0.72-1.25 [facility] Resourceserum or plasma urea nitrogen/creatinine mass cwugh7976-24-45 05:20:00* Test Item Value Reference Range Interpretation Comments BUN/Creatinine Ratio (test code = 3097-3) 8 6-25 [facility] GreenvilleEstimated glomerular filtration rate (GFR) tgjqqkayydugg0770-62-60 05:20:00* Test Item Value Reference Range Interpretation Comments Estimat Glomerular Filtration Rate (test code = 225331959) 18 >60 Ranges were taken from the National Kidney Disease Education Program and the [facility] literature.Reference ranges:60 or greater: Ckkhoc30-01 ( for 3 consecutive months): Chronic kidney disease 15 or less: Kidney failureH[facility] Medical Center at GreenvilleGlucose btgqhqqdooy3751-67-10 05:20:00* Test Item Value Reference Range Interpretation Comments Glucose Level (test code = KND6901) 192 74-118 [facility] [place] [facility] Resourceserum or plasma calcium measurement (mass/volume)2019-10-21 05:20:00* Test Item Value Reference Range Interpretation Comments Calcium Level (test code = 52423-0) 7.9 8.4-10.2 [facility] GreenvilleFluoroscopic procedure less than one hour lglxymaa1613-77-59 05:20:00* Test Item Value Reference Range Interpretation Comments Aspartate Amino Transf (AST/SGOT) (test code = Aspartate Amino Transf (AST/SGOT)) 59 5-34 [facility] [place] [facility] Resourceserum or plasma alanine aminotransferase measurement (enzymatic activity/volume)2019-10-21 05:20:00* Test Item Value Reference Range Interpretation Comments Alanine Aminotransferase (ALT/SGPT) (test code = 1742-6) 17 0-55 [facility] [place] [facility] Resourceserum or plasma protein measurement (mass/volume)2019-10-21 05:20:00* Test Item Value Reference Range Interpretation Comments Total Protein (test code = 2885-2) 5.5 6.5-8.1 [facility] [place] [facility] Resourceser[facility] or plasma albumin measurement (mass/volume)2019-10-21 05:20:00* Test Item Value Reference Range Interpretation Comments Albumin (test code = 1751-7) 2.2 3.5-5.0 [facility] GreenvillePlasma globulin measurement (mass/volume) 2019-10-21 05:20:00* Test Item Value Reference Range Interpretation Comments Globulin (test code = 17793-9) 3.3 2.3-3.5 [facility] [place] [facility] Resourceser[facility] or plasma albumin/globulin mass ocozu7561-16-42 05:20:00* Test Item Value Reference Range Interpretation Comments Albumin/Globulin Ratio (test code = 1759-0) 0.7 0.8-2.0 [facility] [place] [facility] Resourceserum or plasma alkaline phosphatase measurement (enzymatic activity/volume)2019-10-21 05:20:00* Test Item Value Reference Range Interpretation Comments Alkaline Phosphatase (test code = 6768-6) 128 40-150 [facility]villeBlood leukocytes automated count (number/volume)2019-10-21 05:15:00* Test Item Value Reference Range Interpretation Comments White Blood Count (test code = 6690-2) 12.24 4.8-10.8 [facility]villeBlbuff[facility] hospital erythrocytes automated count (number/volume)2019-10-21 05:15:00* Test Item Value Reference Range Interpretation Comments Red Blood Count (test code = 789-8) 2.18 4.3-5.7 [facility]villeBlood hemoglobin measurement (moles/volume)2019-10-21 05:15:00* Test Item Value Reference Range Interpretation Comments Hemoglobin (test code = 38016-3) 7.8 14.0-18.0 [facility] GreenvilleAutomated blood hematocrit (volume fraction)2019-10-21 05:15:00* Test Item Value Reference Range Interpretation Comments Hematocrit (test code = 4544-3) 21.7 38.2-49.6 [facility] GreenvilleAutadventhealth hendersonvilleed erythrocyte mean corpuscular uensux7804-82-28 05:15:00* Test Item Value Reference Range Interpretation Comments Mean Corpuscular Volume (test code = 787-2) 99.5 81-99 [facility] GreenvilleAutomated erythrocyte mean corpuscular hemoglobin (mass per erythrocyte)2019-10-21 05:15:00* Test Item Value Reference Range Interpretation Comments Mean Corpuscular Hemoglobin (test code = 785-6) 35.8 28-32 [facility] GreenvilleAutomated erythrocyte mean corpuscular hemoglobin concentration measurement (mass/volume)2019-10-21 05:15:00* Test Item Value Reference Range Interpretation Comments Mean Corpuscular Hemoglobin Concent (test code = 786-4) 35.9 31-35 [facility] GreenvilleRDW OydDf-Axi5351-83-25 05:15:00* Test Item Value Reference Range Interpretation Comments Red Cell Distribution Width (test code = 97141-6) 19.4 11.7 -14.4 [facility] GreenvilleAutadventhealth hendersonvilleed blood platelet count (count/volume)2019-10-21 05:15:00* Test Item Value Reference Range Interpretation Comments Platelet Count (test code = 777-3) 103 140-360 [facility] GreenvilleAutomated blood segmented neutrophil count as percentage of total meqcuxrcwv6319-51-20 05:15:00* Test Item Value Reference Range Interpretation Comments Neutrophils (%) (Auto) (test code = 60984-3) 91.7 38.7-80.0 [facility] GreenvilleAutomated blood lymphocyte count as percentage ot total duwsweoumh6425-42-68 05:15:00* Test Item Value Reference Range Interpretation Comments Lymphocytes (%) (Auto) (test code = 736-9) 3.9 18.0-39.1 [facility] GreenvilleAutomated blood monocyte count as percentage of total xyvrcquvqp4463-18-99 05:15:00* Test Item Value Reference Range Interpretation Comments Monocytes (%) (Auto) (test code = 5905-5) 3.3 4.4-11.3 [facility] GreenvilleAutadventhealth hendersonvilleed blood eosinophil count as percentage of total wdmjmimrje3476-43-40 05:15:00* Test Item Value Reference Range Interpretation Comments Eosinophils (%) (Auto) (test code = 713-8) 0.0 0.0-6.0 [facility] GreenvilleAutomated blood basophil count as percentage of total xhtdqgvujn5768-93-07 05:15:00* Test Item Value Reference Range Interpretation Comments Basophils (%) (Auto) (test code = 706-2) 0.2 0.0-1.0 [facility] GreenvilleFluoroscopic procedure less than one hour gwxrmyor2983-44-02 05:15:00* Test Item Value Reference Range Interpretation Comments IM GRANULOCYTES % (test code = IM GRANULOCYTES %) 0.9 0.0- 1.0 [facility] GreenvilleAutomated blood neutrophil count 2019-10-21 05:15:00* Test Item Value Reference Range Interpretation Comments Neutrophils # (Auto) (test code = 751-8) 11.2 2.1-6.9 [facility]villeBlbuffalo hospital lymphocytes count (number/volume) 2019-10-21 05:15:00* Test Item Value Reference Range Interpretation Comments Lymphocytes # (Auto) (test code = 57603-2) 0.5 1.0-3.2 [facility] monocytes automated count (number/volume)2019-10-21 05:15:00* Test Item Value Reference Range Interpretation Comments Monocytes # (Auto) (test code = 742-7) 0.4 0.2-0.8 [facility] GreenvilleAutomated blood eosinophil count 2019-10-21 05:15:00* Test Item Value Reference Range Interpretation Comments Eosinophils # (Auto) (test code = 711-2) 0.0 0.0-0.4 [facility] basophil count (count/volume)2019-10-21 05:15:00* Test Item Value Reference Range Interpretation Comments Basophils # (Auto) (test code = 704-7) 0.0 0.0-0.1 [facility] GreenvilleFluoroscopic procedure less than one hour cbxwhtae0445-34-58 05:15:00* Test Item Value Reference Range Interpretation Comments Absolute Immature Granulocyte (auto (doug t code = Absolute Immature Granulocyte (auto) 0.11 0-0.1 [facility] GreenvilleFluoroscopic procedure less than one hour biafregv1545-79-86 05:15:00* Test Item Value Reference Range Interpretation Comments Differential Total Cells Counted (test code = Differen tial Total Cells Counted) 100 [facility] blood neutrophils/100 leukocytes 2019-10-21 05:15:00* Test Item Value Reference Range Interpretation Comments Neutrophils % (Manual) (test code = 79869-9) 95 40-74 [facility] blood lymphocytes/100 leukocytes 2019-10-21 05:15:00* Test Item Value Reference Range Interpretation Comments Lymphocytes % (Manual) (test code = 737-7) 3 19-48 [facility] blood monocytes/100 leukocytes 2019-10-21 05:15:00* Test Item Value Reference Range Interpretation Comments Monocytes % (Manual) (test code = 744-3) 2 3.4-9.0 [facility] platelets count by estimate (number/volume)2019-10-21 05:15:00* Test Item Value Reference Range Interpretation Comments Platelet Estimate (test code = 39119-8) SLIGHTLY DECREASED [facility] GreenvillePlatelet osfemsnxyb0238-13-75 05:15:00* Test Item Value Reference Range Interpretation Comments Platelet Morphology Comment (test code = 26585-6) NORMAL [facility]villeBlbuffalo hospital anisocytosis detection by light nvplernvwh3542-72-68 05:15:00* Test Item Value Reference Range Interpretation Comments Anisocytosis (test code = 702-1) SLIGHT [facility] macrocytes detection by light ypulqwyrnt3303-83-27 05:15:00* Test Item Value Reference Range Interpretation Comments Macrocytosis (test code = 738-5) SLIGHT [facility] [facility]villeBlbuffalo hospital dacrocytes detection by light duffuyxycw5424-76-66 05:15:00* Test Item Value Reference Range Interpretation Comments Tear Drop Cells (test code = 7791-7) FEW [facility]villeRB mlctctmbjy9724-57-33 05:15:00* Test Item Value Reference Range Interpretation Comments Red Cell Morphology Comment (test code = 6742-1) NORMAL [facility] GreenvilleFluoroscopic procedure less than one hour rfwjtper9293-75-70 05:15:00* Test Item Value Reference Range Interpretation Comments Differential Total Cells Counted (test code = Differgibran tial Total Cells Counted) 100 [facility] blood neutrophils/100 leukocytes 2019-10-21 05:15:00* Test Item Value Reference Range Interpretation Comments Neutrophils % (Manual) (test code = 16358-1) 95 40-74 [facility] blood lymphocytes/100 leukocytes 2019-10-21 05:15:00* Test Item Value Reference Range Interpretation Comments Lymphocytes % (Manual) (test code = 737-7) 3 19-48 [facility] blood monocytes/100 leukocytes 2019-10-21 05:15:00* Test Item Value Reference Range Interpretation Comments Monocytes % (Manual) (test code = 744-3) 2 3.4-9.0 [facility] platelets count by estimate (number/volume)2019-10-21 05:15:00* Test Item Value Reference Range Interpretation Comments Platelet Estimate (test code = 75454-8) SLIGHTLY DECREASED [facility] GreenvillePlatelet pkikiwjirc6034-83-43 05:15:00* Test Item Value Reference Range Interpretation Comments Platelet Morphology Comment (test code = 15700-1) NORMAL [facility]villeBlood anisocytosis detection by light cupqfnlqjq8038-83-99 05:15:00* Test Item Value Reference Range Interpretation Comments Anisocytosis (test code = 702-1) SLIGHT [facility] GreenvilleBlood macrocytes detection by light tursqtvcev6890-26-80 05:15:00* Test Item Value Reference Range Interpretation Comments Macrocytosis (test code = 738-5) SLIGHT [facility]villeBlood dacrocytes detection by light jiureuozul8564-08-60 05:15:00* Test Item Value Reference Range Interpretation Comments Tear Drop Cells (test code = 7791-7) FEW [facility] GreenvilleRBC npsoocvbnw0468-32-93 05:15:00* Test Item Value Reference Range Interpretation Comments Red Cell Morphology Comment (test code = 6742-1) [facility] by light trvunrdiys1797-04-93 05:15:00* Test Item Value Reference Range Interpretation Comments Anisocytosis (test code = 702-1) SLIGHT [facility] GreenvilleUS GUIDED BPGFZNYOTQWM5065-61-63 09:52:00 [facility] [address] [address] Patient Name: INDRA GALVAN MR #: [id number] : Age/Sex: 38/M Req #: [id number] Adm Physician: KHLOE BOX MD Ordered by: MORGAN ROBERTSON MD Report #: [id number] Location: ICU Room/Bed: ICU [facility] Procedure: [id number] US /US GUIDED PARACENTESIS Exam Date: 10/19/19 Exam Fernando e: 1714 REPORT STATUS: Signed Da te and Time: 10/19/19 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 Implants: None COmplications: No immediate COndition at completion: Stable. Disposition: remain in ICU DISCUSSION: Infor benigno consent was obtained and documented in the medical record. Right abd omen was prepped and draped in the standard sterile fashion. 1% lidocaine was infiltrated into the skin and subcutaneous tissues for local anesthesia. Under continuous ultrasound guidance a 5 Fr Vivogigeh needle catheter was advanced into the peritoneal [...] code = 9813-7) 10.8 6.2-19.4 Performed at: [address] [id number] Director: Alli Georges MD, Phone: [phone] venture between [facility] Resourceserum or plasma cortisol measurement on morning peak specimen (mass/volume)2019-10-20 09:05:00* Test Item Value Reference Range Interpretation Comments Cortisol AM Sample (test code = 9813-7) 10.8 6.2-19.4 Performed at: - [facility] [id number] Director: Alli Georges MD, Phone: [phone] [facility] Center at GreenvillePhosphorus rygokjsbuhz0389-64-70 04:30:00* Test Item Value Reference Range Interpretation Comments Phosphorus Level (test code = LSC8485) 1.8 2.3-4.7 [facility] Resourceserum or plasma thyrotropin measurement by detection limit <= 0.005 miu/l (units/volume)2019-10-20 04:30:00* Test Item Value Reference Range Interpretation Comments Thyroid Stimulating Hormone (TSH) (test code = 33393-0) 0.766 0.350-4.940 [facility] Resourceserum or plasma thyrotropin measurement by detection limit <= 0.005 miu/l (units/volume)2019-10-20 04:30:00* Test Item Value Reference Range Interpretation Comments Thyroid Stimulating Hormone (TSH) (test code = 88045-0) 0.766 0.350-4.940 [facility] Resourceserum or plasma thyrotropin measurement by detection limit <= 0.005 miu/l (units/volume)2019-10-20 04:30:00* Test Item Value Reference Range Interpretation Comments Thyroid Stimulating Hormone (TSH) (test code = 11093-6) 0.766 0.350-4.940 [facility] Resourcespecimen source identification of body uwoiv2990-78-71 20:37:00* Test Item Value Reference Range Interpretation Comments Body Fluid Type (test code = 44117-9) PERITONEAL [facility] GreenvilleEvaluation of color of body fluid 2019-10-19 20:37:00* Test Item Value Reference Range Interpretation Comments Body Fluid Color (test code = 6824-7) RED AMBERHunt [facility] Center at GreenvilleDetermination of appearance of body hfpnh6825-64-33 20:37:00* Test Item Value Reference Range Interpretation Comments Body Fluid Appearance (test code = 9335-1) CLOUDY [facility] GreenvilleManual body fluid leukocytes count (number/volume)2019-10-19 20:37:00* Test Item Value Reference Range Interpretation Comments Body Fluid WBC (test code = 6743-9) 88 [facility] body fluid erythrocytes count (number/volume)2019-10-19 20:37:00* Test Item Value Reference Range Interpretation Comments Body Fluid RBC (test code = 6741-3) 2375 [facility] body fluid neutrophils/100 zxwwdizzpc3456-13-46 20:37:00* Test Item Value Reference Range Interpretation Comments Body Fluid Neutrophils (test code = 42311-8) 20 [facility] GreenvilleBody fluid lymphocyte gjwpk8839-10-88 20:37:00* Test Item Value Reference Range Interpretation Comments Body Fluid Lymphocytes (test code = 98298762) 65 [facility] GreenvilleBody fluid monocyte bobzh2032-44-65 20:37:00* Test Item Value Reference Range Interpretation Comments Body Fluid Monocytes (test code = 00708-8) 5 [facility] GreenvilleBody fluid other cells manual count 2019-10-19 20:37:00* Test Item Value Reference Range Interpretation Comments Body Fluid Other Cells (test code = 888113643) 10 [facility] GreenvilleTotal cell bwfoo7618-16-27 20:37:00* Test Item Value Reference Range Interpretation Comments Body Fluid Total Cells Counted (test code = 95124-1) 100 [facility] GreenvilleProthrombin time (PT) in platelet poor plasma by coagulation gmtpm9442-82-21 05:55:00* Test Item Value Reference Range Interpretation Comments Prothrombin Time (test code = 5902-2) 19.4 11.9-14.5 [facility] GreenvilleINR in Platelet poor plasma by Coagulation qlyqq1142-75-33 05:55:00* Test Item Value Reference Range Interpretation Comments Prothromb Time International Ratio (test code = 6301-6) 1.54 Oral Anticoagulant Therapy INR Values:1. Low Intensity Therapy 1.5 - 2.02 . Moderate Intensity Therapy 2.0 - 3.03. High Intensity Therapy(1) 2.5 - 3. 54. High Intensity Therapy(2) 3.0 - 4.05. Panic Value INR > 5.0 [facility] Resourceserum or plasma puzue-2-ktewttddtwy.tumor marker measurement (mass/volume)2019-10-19 05:55:00* Test Item Value Reference Range Interpretation Comments Alpha Fetoprotein (test code = 70960-2) 4.1 0.0-8.3 [facility] Electrochemiluminescence Immunoassay(ECLIA)Values obtained wit h different assay methods or kits cannotbe used interchangeably. Results cannot be interpreted asabsolute evidence of the presence or absence of malignantdisea se.This test is not interpretable in females.Performed at: [employer] [facility] [address] [id number] Director: Alli Georges MD, Phone: [phone] venture between [facility] Resourceserum or plasma folate measurement (mass/volume)2019-10-19 05:55:00* Test Item Value Reference Range Interpretation Comments Folate (test code = 2284-8) >20.0 >3.0 A serum folate concentration of less than 3.1 ng/mL isconsidered to represent cl inical deficiency.Performed at: [facility] [address] [id number] Director: Alli Georges MD, Phone: [phone] venture between [facility] Resourceserum or plasma cqhhp-0-bmzcfqoufzq.tumor marker measurement (mass/volume)2019-10-19 05:55:00* Test Item Value Reference Range Interpretation Comments Alpha Fetoprotein (test code = 06031-8) 4.1 0.0-8.3 [facility] Electrochemiluminescence Immunoassay(ECLIA)Values obtained wit h different assay methods or kits cannotbe used interchangeably. Results cannot be interpreted asabsolute evidence of the presence or absence of malignantdisea se.This test is not interpretable in females.Performed at: [facility] [address] [id number] Director: Alli Georges MD, Phone: [phone] venture between [facility] Resourceserum or plasma pjezs-4-xhrsiqhqrwo.tumor marker measurement (mass/volume)2019-10-19 05:55:00* Test Item Value Reference Range Interpretation Comments Alpha Fetoprotein (test code = 80154-5) 4.1 0.0-8.3 [facility] Electrochemiluminescence Immunoassay(ECLIA)Values obtained wit h different assay methods or kits cannotbe used interchangeably. Results cannot be interpreted asabsolute evidence of the presence or absence of malignantdisea se.This test is not interpretable in females.Performed at: - [facility] [address] [id number] Director: Alli Georges MD, Phone: [phone] Scott & [facility] 2019-10-18 21:45:00* Test Item Value Reference Range Interpretation Comments Ammonia (test code = 00905-3) 96 31-123 [facility] GreenvilleCT ABDOMEN/PELVIS UI7825-18-18 20:02:00 [facility] [address] [place] [address] Patient Name: INDRA GALVAN MR #: [id number] : Age/Sex: 38/M Req #: [id number] Adm Physician: KHLOE BOX MD Ordered by: MORGAN ROBERTSON MD Report #: [id number] Location: ICU Room/Bed: ICU [facility] Procedure: [id number] CT /CT ABDOMEN/PELVIS WO Exam Date: 10/18/19 [...] Automated reticulocyte count as percentage of total wtffiekgoteh8573-97-36 19:40:00* Test Item Value Reference Range Interpretation Comments Percent Reticulocyte Count (test code = 20323-8) 5.3 0.8-2 .2 [facility] Resourceserum or plasma magnesium measurement (mass/volume)2019-10-18 19:40:00* Test Item Value Reference Range Interpretation Comments Magnesium Level (test code = 40680-2) 1.6 1.3-2.1 [facility] Resourceserum or plasma creatine kinase measurement (enzymatic activity/volume)2019-10-18 19:40:00* Test Item Value Reference Range Interpretation Comments Creatine Kinase (test code = 2157-6) 24 30-200 [facility] Resourceserum or plasma creatine kinase MB measurement (mass/volume)2019-10-18 19:40:00* Test Item Value Reference Range Interpretation Comments Creatine Kinase MB (test code = 74871-1) 0.40 0-5.0 [facility] GreenvilleTroponin I measurement by highly sensitive enzyme rlykscjtnjd8696-58-76 19:40:00* Test Item Value Reference Range Interpretation Comments Troponin I (test code = 00182-1) 0.003 0-0.300 [facility] GreenvilleCHEST SINGLE (PORTABLE)2019-10-18 14:56:[address] [address] Patient Name: IDNRA GALVAN MR #: [id number] : 1980 Age/Sex: 38/M Req #: [id number] Adm Physician: KHLOE BOX MD Ordered by: MARITZA SANTANA MD Report #: [id number] Location: ICU Room/Bed: ICU [facility] Procedure: [id number] DX/ CHEST SINGLE (PORTABLE) Exam Date: 10/18/19 [...] 10/18/191457 COPY TO: MARITZA SANTANA MD ABDOMEN BKGJXVR3145-91-39 14:43:[address] [address] Patient Name: INDRA GALVAN JR MR #: [id number] : 1980 Age/Sex: 38/M Req #: [id number] Adm Physician: KHLOE BOX MD Ordered by: MORGAN ROBERTSON MD Report #: [id number] Location: ICU Room/Bed: ICU [facility] Procedure: [id number] US /US ABDOMEN LIMITED Exam Date: 10/18/19 [...] MD Fluoroscopic procedure less than one hour lqmrmgfn2734-57-77 11:38:00* Test Item Value Reference Range Interpretation [...] under 564(g) of the ACT.Testing performed by [facility] [place], [place] [address]QMU[address] [place], [place] [address]Activated partial thromboplastin time (aPTT) in platelet poor plasma by coagulation mkmap6653-03-49 08:58:00* Test Item Value Reference Range Interpretation Comments Activated Partial Thromboplast Time (test code = 49668-8) 46.5 23.8-35.5 [facility] Resourceserum or plasma iron measurement (mass/volume)2019-10-18 08:58:00* Test Item Value Reference Range Interpretation Comments Iron Level (test code = 2498-4) 125 65-175 [facility] Resourceserum or plasma iron binding capacity measurement (mass/volume)2019-10-18 08:58:00* Test Item Value Reference Range Interpretation Comments Total Iron Binding Capacity (test code = 2500-7) 122 261-4 78 [facility] Resourceserum or plasma iron saturation measurement (mass fraction)2019-10-18 08:58:00* Test Item Value Reference Range Interpretation Comments Percent Iron Saturation (test code = 2502-3) 102 15-50 [facility] Resourceserum or plasma transferrin measurement (mass/volume)2019-10-18 08:58:00* Test Item Value Reference Range Interpretation Comments Transferrin (test code = 3034-6) 87 174-364 [facility] Resourceserum or plasma ferritin measurement (mass/volume)2019-10-18 08:58:00* Test Item Value Reference Range Interpretation Comments Ferritin (test code = 2276-4) 1212.14 21.81-274.66 [facility]-pOuh1242-05-54 08:58:00* Test Item Value Reference Range Interpretation Comments B-Type Natriuretic Peptide (test code = 40943-7) 1195.9 0-100 [facility]villeBlood cobalamin (vitamin B12) measurement (mass/volume)2019-10-18 08:58:00* Test Item Value Reference Range Interpretation Comments Vitamin B12 Level (test code = 27144-7) 1331 213-816 [facility] Resourceserum or plasma hepatitis A virus IgM antibody detection by kojnglobtol3771-28-42 08:58:00* Test Item Value Reference Range Interpretation Comments Hepatitis A IgM Antibody (test code = 78661-9) Negative Negativ e [facility] Resourceserum or plasma hepatitis B virus surface antigen detection by kxhxulaainh4072-99-83 08:58:00* Test Item Value Reference Range Interpretation Comments Hepatitis B Surface Antigen (test code = 5196-1) Negative Negat mumtaz [facility] Resourceserum or plasma hepatitis B virus core IgM antibody detection by fvwuhuzlbyo8081-26-33 08:58:00* Test Item Value Reference Range Interpretation Comments Hepatitis B Core IgM Antibody (test code = 69206-5) Negative Ne gative [facility] Resourceserum hepatitis C virus antibody jdoudppoe6418-49-43 08:58:00* Test Item Value Reference Range Interpretation Comments Hepatitis C Antibody (test code = 64469-8) 0.1 0.0-0.9 Negative: < 0.8 Indeterminate: 0.8 - 0.9 Positive: > 0.9 The CDC recommends that a positive HCV antibody result be followed up with a HCV Nucleic Acid Amplification test (008968).Performed at: [address] [id number] Director: Alli Georges MD, Phone: [phone] Trail Baptist Hospitald-cYor1837-93-41 08:58:00 * Test Item Value Reference Range Interpretation Comments B-Type Natriuretic Peptide (test code = 95812-7) 1195.9 0-100 [facility] Resourceserum or plasma hepatitis A virus IgM antibody detection by vyiidvypwuv9540-74-93 08:58:00* Test Item Value Reference Range Interpretation Comments Hepatitis A IgM Antibody (test code = 98730-9) Negative Negativ e [facility] Resourceserum or plasma hepatitis B virus surface antigen detection by mhpbuvobjbc6753-52-64 08:58:00* Test Item Value Reference Range Interpretation Comments Hepatitis B Surface Antigen (test code = 5196-1) Negative Negat mumtaz [facility] Resourceserum hepatitis C virus antibody ofsoeplks3537-92-31 08:58:00* Test Item Value Reference Range Interpretation Comments Hepatitis C Antibody (test code = 08553-6) 0.1 0.0-0.9 Negative: < 0.8 Indeterminate: 0.8 - 0.9 Positive: > 0.9 The CDC recommends that a positive HCV antibody result be followed up with a HCV Nucleic Acid Amplification test (425295).Performed at: [facility] [id number] Director: Alli Georges MD, Phone: [phone] Verde Regional [facility] Center Kbs-aXkd3917-78-22 08:58:00 * Test Item Value Reference Range Interpretation Comments B-Type Natriuretic Peptide (test code = 38822-6) 1195.9 0-100 [facility] Resourceserum or plasma hepatitis A virus IgM antibody detection by dacnjcsbcsh1627-06-26 08:58:00* Test Item Value Reference Range Interpretation Comments Hepatitis A IgM Antibody (test code = 80571-2) Negative Negativ e [facility] Resourceserum or plasma hepatitis B virus surface antigen detection by eybniswfdgf9771-75-95 08:58:00* Test Item Value Reference Range Interpretation Comments Hepatitis B Surface Antigen (test code = 5196-1) Negative Negat mumtaz [facility] Resourceserum hepatitis C virus antibody ytgimtcpo4881-56-99 08:58:00* Test Item Value Reference Range Interpretation Comments Hepatitis C Antibody (test code = 03401-5) 0.1 0.0-0.9 Negative: < 0.8 Indeterminate: 0.8 - 0.9 Positive: > 0.9 The CDC recommends that a positive HCV antibody result be followed up with a HCV Nucleic Acid Amplification test (749413).Performed at: [facility] LabSaint [facility] Wrsvira[address] [place] [id number] Director: Alli Georges MD, Phone: [phone] [facility] GreenvilleBlood leukocytes automated count (number/volume)2019-09-27 05:45:00* Test Item Value Reference Range Interpretation Comments White Blood Count (test code = 6690-2) 7.33 4.8-10.8 [facility]villeBlbuffalo hospital erythrocytes automated count (number/volume)2019-09-27 05:45:00* Test Item Value Reference Range Interpretation Comments Red Blood Count (test code = 789-8) 1.71 4.3-5.7 [facility] GreenvilleBlood hemoglobin measurement (moles/volume)2019-09-27 05:45:00* Test Item Value Reference Range Interpretation Comments Hemoglobin (test code = 17014-4) 6.0 14.0-18.0 Results called to CINTHYA TOVAR at 0637 on 09/27/19 by Roland Gore. [place]. [facility] GreenvilleAutomated blood hematocrit (volume fraction)2019-09-27 05:45:00* Test Item Value Reference Range Interpretation Comments Hematocrit (test code = 4544-3) 17.7 38.2-49.6 Results called to CINTHYA TOVAR at 0637 on 09/27/19 by Roland Gore. [place]. [facility] GreenvilleAutomated erythrocyte mean corpuscular pqzasw8790-17-40 05:45:00* Test Item Value Reference Range Interpretation Comments Mean Corpuscular Volume (test code = 787-2) 103.5 81-99 [facility] GreenvilleAutomated erythrocyte mean corpuscular hemoglobin (mass per erythrocyte)2019-09-27 05:45:00* Test Item Value Reference Range Interpretation Comments Mean Corpuscular Hemoglobin (test code = 785-6) 35.1 28-32 [facility] GreenvilleAutomated erythrocyte mean corpuscular hemoglobin concentration measurement (mass/volume)2019-09-27 05:45:00* Test Item Value Reference Range Interpretation Comments Mean Corpuscular Hemoglobin Concent (test code = 786-4) 33.9 31-35 [facility] GreenvilleRDW BfwTd-Eho9893-82-01 05:45:00* Test Item Value Reference Range Interpretation Comments Red Cell Distribution Width (test code = 73064-0) 19.9 11.7 -14.4 [facility] GreenvilleAutomated blood platelet count (count/volume)2019-09-27 05:45:00* Test Item Value Reference Range Interpretation Comments Platelet Count (test code = 777-3) 108 140-360 [facility] GreenvilleAutadventhealth hendersonvilleed blood segmented neutrophil count as percentage of total hizvckbwqw6624-72-25 05:45:00* Test Item Value Reference Range Interpretation Comments Neutrophils (%) (Auto) (test code = 74479-9) 74.2 38.7-80.0 [facility] GreenvilleAutomated blood lymphocyte count as percentage ot total gwttgcvfhm4972-66-31 05:45:00* Test Item Value Reference Range Interpretation Comments Lymphocytes (%) (Auto) (test code = 736-9) 8.6 18.0-39.1 [facility] GreenvilleAutomated blood monocyte count as percentage of total msfvuodrjs9183-73-98 05:45:00* Test Item Value Reference Range Interpretation Comments Monocytes (%) (Auto) (test code = 5905-5) 12.3 4.4-11.3 [facility] GreenvilleAutomated blood eosinophil count as percentage of total lkhbjfwnha3151-48-89 05:45:00* Test Item Value Reference Range Interpretation Comments Eosinophils (%) (Auto) (test code = 713-8) 2.7 0.0-6.0 [facility] GreenvilleAutomated blood basophil count as percentage of total lfhbhnjfsc2533-96-46 05:45:00* Test Item Value Reference Range Interpretation Comments Basophils (%) (Auto) (test code = 706-2) 0.7 0.0-1.0 [facility] GreenvilleFluoroscopic procedure less than one hour bgwaotrh4952-57-41 05:45:00* Test Item Value Reference Range Interpretation Comments IM GRANULOCYTES % (test code = IM GRANULOCYTES %) 1.5 0.0- 1.0 [facility] GreenvilleAutomated blood neutrophil count 2019-09-27 05:45:00* Test Item Value Reference Range Interpretation Comments Neutrophils # (Auto) (test code = 751-8) 5.4 2.1-6.9 [facility] GreenvilleBlood lymphocytes count (number/volume) 2019-09-27 05:45:00* Test Item Value Reference Range Interpretation Comments Lymphocytes # (Auto) (test code = 61637-7) 0.6 1.0-3.2 [facility] GreenvilleBlbuffalo hospital monocytes automated count (number/volume)2019-09-27 05:45:00* Test Item Value Reference Range Interpretation Comments Monocytes # (Auto) (test code = 742-7) 0.9 0.2-0.8 [facility] GreenvilleAutomated blood eosinophil count 2019-09-27 05:45:00* Test Item Value Reference Range Interpretation Comments Eosinophils # (Auto) (test code = 711-2) 0.2 0.0-0.4 [facility] GreenvilleAutomated blood basophil count (count/volume)2019-09-27 05:45:00* Test Item Value Reference Range Interpretation Comments Basophils # (Auto) (test code = 704-7) 0.1 0.0-0.1 [facility] [facility]villeFluoroscopic procedure less than one hour kfcdymzw6863-01-00 05:45:00* Test Item Value Reference Range Interpretation Comments Absolute Immature Granulocyte (auto (doug t code = Absolute Immature Granulocyte (auto) 0.11 0-0.1 [facility] [place] [facility]er[facility] or plasma sodium measurement (moles/volume)2019-09-27 05:45:00* Test Item Value Reference Range Interpretation Comments Sodium Level (test code = 2951-2) 136 136-145 [facility] [place] [facility] Resourceserum or plasma potassium measurement (moles/volume)2019-09-27 05:45:00* Test Item Value Reference Range Interpretation Comments Potassium Level (test code = 2823-3) 3.2 3.5-5.1 [facility] [place] [facility]er[facility] or plasma chloride measurement (moles/volume)2019-09-27 05:45:00* Test Item Value Reference Range Interpretation Comments Chloride Level (test code = 2075-0) 102 98-107 [facility] [place] [facility] Resourceserum or plasma carbon dioxide, total measurement (moles/volume)2019-09-27 05:45:00* Test Item Value Reference Range Interpretation Comments Carbon Dioxide Level (test code = 2028-9) 28 22-29 [facility] [place] [facility] Resourceserum or plasma anion eec8074-16-45 05:45:00* Test Item Value Reference Range Interpretation Comments Anion Gap (test code = 34371-7) 9.2 8-16 [facility] [place] [facility]er[facility] or plasma urea nitrogen measurement (mass/volume)2019-09-27 05:45:00* Test Item Value Reference Range Interpretation Comments Blood Urea Nitrogen (test code = 3094-0) 11 7-26 [facility] [place] [facility]er[facility] or plasma creatinine measurement (mass/volume)2019-09-27 05:45:00* Test Item Value Reference Range Interpretation Comments Creatinine (test code = 2160-0) 2.29 0.72-1.25 [facility] [place] [facility] Resourceserum or plasma urea nitrogen/creatinine mass lhacw2523-76-01 05:45:00* Test Item Value Reference Range Interpretation Comments BUN/Creatinine Ratio (test code = 3097-3) 5 6-25 [facility] GreenvilleEstimated glomerular filtration rate (GFR) bauytzlsyhcul5195-60-57 05:45:00* Test Item Value Reference Range Interpretation Comments Estimat Glomerular Filtration Rate (test code = 237673049) 32 >60 Ranges were taken from the National Kidney Disease Education Program and the [facility] literature.Reference ranges:60 or greater: Kjhoev90-95 ( for 3 consecutive months): Chronic kidney disease 15 or less: Kidney failureHunt Regional Medical Center at GreenvilleGlucose vzmtofveyqy0619-14-36 05:45:00* Test Item Value Reference Range Interpretation Comments Glucose Level (test code = LZJ0100) 109 74-118 [facility] [place] [facility]er[facility] or plasma calcium measurement (mass/volume)2019-09-27 05:45:00* Test Item Value Reference Range Interpretation Comments Calcium Level (test code = 56813-8) 7.9 8.4-10.2 [facility] [place] [facility]erum or plasma iron measurement (mass/volume)2019-09-27 05:45:00* Test Item Value Reference Range Interpretation Comments Iron Level (test code = 2498-4) 70 65-175 [facility] [place] [facility]erum or plasma iron binding capacity measurement (mass/volume)2019-09-27 05:45:00* Test Item Value Reference Range Interpretation Comments Total Iron Binding Capacity (test code = 2500-7) 118 261-4 78 [facility] [place] [facility]er[facility] or plasma iron saturation measurement (mass fraction)2019-09-27 05:45:00* Test Item Value Reference Range Interpretation Comments Percent Iron Saturation (test code = 2502-3) 59 15-50 [facility] [place] [facility]er[facility] or plasma transferrin measurement (mass/volume)2019-09-27 05:45:00* Test Item Value Reference Range Interpretation Comments Transferrin (test code = 3034-6) 84 174-364 [facility] [place] [facility]er[facility] or plasma ferritin measurement (mass/volume)2019-09-27 05:45:00* Test Item Value Reference Range Interpretation Comments Ferritin (test code = 2276-4) 565.91 21.81-274.66 [facility] [place] [facility]er[facility] or plasma total bilirubin measurement (mass/volume)2019-09-27 05:45:00* Test Item Value Reference Range Interpretation Comments Total Bilirubin (test code = 1975-2) 11.4 0.2-1.2 [facility] GreenvilleFluoroscopic procedure less than one hour sttayifl6566-98-36 05:45:00* Test Item Value Reference Range Interpretation Comments Aspartate Amino Transf (AST/SGOT) (test code = Aspartate Amino Transf (AST/SGOT)) 63 5-34 [facility] [place] [facility]er[facility] or plasma alanine aminotransferase measurement (enzymatic activity/volume)2019-09-27 05:45:00* Test Item Value Reference Range Interpretation Comments Alanine Aminotransferase (ALT/SGPT) (test code = 1742-6) 16 0-55 [facility] GreenvilleAmmonia Rsq-rBpo4182-31-01 05:45:00* Test Item Value Reference Range Interpretation Comments Ammonia (test code = 99651-0) 129 31-123 [facility] [place] [facility]er[facility] or plasma lactate dehydrogenase measurement (enzymatic activity/volume)2019-09-27 05:45:00* Test Item Value Reference Range Interpretation Comments Lactate Dehydrogenase (test code = 550009579) 160 125-220 [facility] [place] [facility]er[facility] or plasma protein measurement (mass/volume)2019-09-27 05:45:00* Test Item Value Reference Range Interpretation Comments Total Protein (test code = 2885-2) 5.8 6.5-8.1 [facility] [place] [facility] Resourceser[facility] or plasma albumin measurement (mass/volume)2019-09-27 05:45:00* Test Item Value Reference Range Interpretation Comments Albumin (test code = 1751-7) 2.4 3.5-5.0 [facility] GreenvillePlasma globulin measurement (mass/volume) 2019-09-27 05:45:00* Test Item Value Reference Range Interpretation Comments Globulin (test code = 09446-7) 3.4 2.3-3.5 [facility] [place] [facility]er[facility] or plasma albumin/globulin mass rknay0611-00-83 05:45:00* Test Item Value Reference Range Interpretation Comments Albumin/Globulin Ratio (test code = 1759-0) 0.7 0.8-2.0 [facility] [place] [facility]erum or plasma alkaline phosphatase measurement (enzymatic activity/volume)2019-09-27 05:45:00* Test Item Value Reference Range Interpretation Comments Alkaline Phosphatase (test code = 6768-6) 147 40-150 [facility] [place] [facility]er[facility] or plasma lactate dehydrogenase measurement (enzymatic activity/volume)2019-09-27 05:45:00* Test Item Value Reference Range Interpretation Comments Lactate Dehydrogenase (test code = 788964100) 160 125-220 [facility] GreenvilleQualitative serum or plasma hepatitis B virus e antibody by enzyme ldspmmydjdi2546-04-80 05:45:00* Test Item Value Reference Range Interpretation Comments Hepatitis Be Antibody (test code = 77113-3) Negative Negative Performed at: [address] [id number] Patient Information Coordinator: Esdras Lemon MD, Phone: [phone] [facility] between [facility] [place] [facility] Resourceserum hepatitis B virus e antigen detection by enzyme immunoassay 2019-09-27 05:45:00* Test Item Value Reference Range Interpretation Comments Hepatitis Be Antigen (test code = 99720-3) Negative Negative Performed at: [address] [id number] Director: Alli Goerges MD, Phone: [phone] [facility] [place] [facility] Resourceserum or plasma lactate dehydrogenase measurement (enzymatic activity/volume)2019-09-27 05:45:00* Test Item Value Reference Range Interpretation Comments Lactate Dehydrogenase (test code = 384063062) 160 125-220 [facility] GreenvilleQualitative serum or plasma hepatitis B virus e antibody by enzyme hpsyfsfrrpa5424-06-32 05:45:00* Test Item Value Reference Range Interpretation Comments Hepatitis Be Antibody (test code = 01593-4) Negative Negative Performed at: [address] [id number] Patient Information Coordinator: Esdras Lemon MD, Phone: [phone] [facility] [place] [facility] Resourceserum hepatitis B virus e antigen detection by enzyme immunoassay 2019-09-27 05:45:00* Test Item Value Reference Range Interpretation Comments Hepatitis Be Antigen (test code = 92711-6) Negative Negative Performed at: [address] [id number] Director: Alli Georges MD, Phone: [phone] Regional [facility] at GreenvilleQualitative serum or plasma hepatitis B virus e antibody by enzyme wickyprensj1730-49-66 05:45:00* Test Item Value Reference Range Interpretation Comments Hepatitis Be Antibody (test code = 27673-0) Negative Negative Performed at: [address] [id number] Patient Information Coordinator: Esdras Lemon MD, Phone: [phone] [facility] [place] [facility] Resourceserum hepatitis B virus e antigen detection by enzyme immunoassay 2019-09-27 05:45:00* Test Item Value Reference Range Interpretation Comments Hepatitis Be Antigen (test code = 90676-1) Negative Negative Performed at: [facility] [address] [id number] Director: Alli Georges MD, Phone: [phone] [facility]US [facility] DNVYARJY8651-70-15 20:45:00 [facility] [address] [place], [place] [address] Patient Name: INDRA GALVAN JR MR #: [id number] : 1980 Age/Sex: 38/M Req #: [id number] Adm Physician: KHLOE BOX MD Ordered by: LITZY FRYE, VIRGILIO FRYE Report #: [id number] Location: MED/SURG Room/Bed: [facility] Procedure: [id number] US /US ABDOMEN COMPLETE Exam Date: 09/26/19 [...] COPY TO: VIRGILIO GALEANA Stool gastrointestinal hemoglobin chhftopji1816-26-45 19:32:00* Test Item Value Reference Range Interpretation Comments Stool Occult Blood (test code = 2335-8) POSITIVE NEGATIVE [facility] gastrointestinal hemoglobin pkjdpnqfv4172-28-76 19:32:00* Test Item Value Reference Range Interpretation Comments Stool Occult Blood (test code = 2335-8) POSITIVE NEGATIVE [facility] gastrointestinal hemoglobin udeuhugwm6378-99-39 19:32:00* Test Item Value Reference Range Interpretation Comments Stool Occult Blood (test code = 2335-8) POSITIVE NEGATIVE [facility]villeBlood macrocytes detection by light cavyodkicx7870-11-31 11:40:00* Test Item Value Reference Range Interpretation Comments Macrocytosis (test code = 738-5) SLIGHT [facility] GreenvilleAutomated reticulocyte count as percentage of total cirgskgguqxt2845-37-84 11:40:00* Test Item Value Reference Range Interpretation Comments Percent Reticulocyte Count (test code = 91026-7) 11.2 0.8-2 .2 [facility] GreenvilleProthrombin time (PT) in platelet poor plasma by coagulation xizqy3310-98-23 11:40:00* Test Item Value Reference Range Interpretation Comments Prothrombin Time (test code = 5902-2) 20.0 11.9-14.5 [facility] GreenvilleINR in Platelet poor plasma by Coagulation dptlw0799-68-85 11:40:00* Test Item Value Reference Range Interpretation Comments Prothromb Time International Ratio (test code = 6301-6) 1.60 Oral Anticoagulant Therapy INR Values:1. Low Intensity Therapy 1.5 - 2.02 . Moderate Intensity Therapy 2.0 - 3.03. High Intensity Therapy(1) 2.5 - 3. 54. High Intensity Therapy(2) 3.0 - 4.05. Panic Value INR > 5.0 [facility] GreenvilleActivated partial thromboplastin time (aPTT) in platelet poor plasma by coagulation miauj0126-24-58 11:40:00* Test Item Value Reference Range Interpretation Comments Activated Partial Thromboplast Time (test code = 00816-6) 39.4 23.8-35.5 [facility] [place] [facility]er[facility] or plasma conjugated bilirubin measurement (mass/volume)2019-09-26 11:40:00* Test Item Value Reference Range Interpretation Comments Direct Bilirubin (test code = 37834-0) 7.7 0.0-0.5 [facility] [place] [facility] Resourceserum or plasma indirect bilirubin measurement (mass/volume)2019-09-26 11:40:00* Test Item Value Reference Range Interpretation Comments Indirect Bilirubin (test code = 1971-1) 5.4 0.3-1.2 [facility] [place] [facility] Resourceserum or plasma creatine kinase measurement (enzymatic activity/volume)2019-09-26 11:40:00* Test Item Value Reference Range Interpretation Comments Creatine Kinase (test code = 2157-6) 22 30-200 [facility] [place] [facility] Resourceserum or plasma creatine kinase MB measurement (mass/volume)2019-09-26 11:40:00* Test Item Value Reference Range Interpretation Comments Creatine Kinase MB (test code = 99131-3) 0.50 0-5.0 [facility] GreenvilleTroponin I measurement by highly sensitive enzyme zysqkqqvqvh0428-54-80 11:40:00* Test Item Value Reference Range Interpretation Comments Troponin I (test code = 56593-3) 0.012 0-0.300 [facility]villeBlood cobalamin (vitamin B12) measurement (mass/volume)2019-09-26 11:40:00* Test Item Value Reference Range Interpretation Comments Vitamin B12 Level (test code = 40602-7) 0018 213-393 [facility] GreenvilleCHEST SINGLE (PORTABLE)2019-09-26 11:24:00 [place] [address] Patient Name: INDRA GALVAN MR #: [id number] : 1980 Age/Sex: 38/M Req #: [id number] Adm Physician: Ordered by: MARYLU KELSEY DO Report #: [id number] Location: ER Room/Bed: Procedure: [id number] DX/CHEST SINGLE (PORTABLE) Exam Date: 09/26/19 Exam [...] COPY TO: MARYLU KELSEY DO MR, ABDOMEN, FMQH0827-79-43 12:54:00FINAL REPORT MRI of the abdomen with [...] T10 vertebral b oliver. Signed: Gela Rodriguez MDReport Verified Date/Time: 05/23/2019 12:54:18 Reading Location: [place] [id number] Ortho Consult Reading Room abdomen with/without IV [...] Rodriguezeport Verified Date/Time: 05/23/2019 12:54:18 Reading Location: [facility] C013X Ortho Consult Reading Room [facility] Metabolic Pslho5738-65-80 09:34:00* Test Item Value Reference Range Interpretation [...] mg/dL 70-105 H Calcium (test code = 79830-2) 8.5 mg/dL 8.4-10.2 EGFR (test code = 11289-3) 25 mL/min/1.73 sq m ESTIMATED GFR IS NOT ACCURATE CREATININE CLEARANCE IN PREDICTING GLOMERULAR FILTRATION RATE. ESTIMATED GFR IS NOT APPLICABLE FOR DIALYSIS PATIENTS. PHILLIP (test code = PHILLIP) Chess Instructor ID - KAVONMARCELLEparminder moderately icte waldemar Lab Interpretation (test code = 24926-9) [facility]normal [facility]BAS[facility]ABOL[facility] WTSSW0828-94-16 09:34:00* Test Item Value Reference Range Interpretation [...] GFR IS NOT APPLICABLE FOR DIALYSIS PATIENTS. Chess Instructor ID - Kartikmohankavitha moderately ictericHepatic function njeth3516-49-37 09:29:00* Test Item Value Reference Range Interpretation Comments Protein, Total (test code = 2885-2) 6.5 6.0- 8.3 gm/dL Albumin (test code = 53124-7) 3.4 g/dL 3.5-5 L Total Bilirubin (test code = 1975-2) 5.4 mg/dL 0.2-1.2 H Bilirubin, Direct (test code = 1968-7) 2.6 mg/dL 0.1-0.5 H Alkaline Phosphatase (test code = 6768-6) 200 U/L 40-150 H AST (test code = 1920-8) 46 U/L 5-34 H ALT (test code = 1742-6) 12 U/L 6-55 PHILLIP (test code = PHILLIP) Chess Instructor ID - KAVONGSparminder moderately icte waldemar Lab Interpretation (test code = 28442-6) Abnormal [facility] HospitalHEPATIC FUNCTION EISQO4598-52-10 09:29:00* Test Item Value Reference Range Interpretation [...] (test code = 347) 12 U/L 6-55 Chess Instructor ID - ROSIANGSpecimen moderately ictericCBC with platelet count + automated rbgv5490-26-98 09:27:00* Test Item Value Reference Range Interpretation [...] K/CU MM L MPV (test code = 83408-3) 8.4 fL 9.4-12.4 L nRBC (test code [...] % 0-1 Lab Interpretation (test code = 29218-1) Abnormal [facility] W/PLT COUNT & AUTO UOFWQGKRHFQX2528-38-29 09:27:00* Test Item Value Reference Range Interpretation [...] code = 2801) 0 % 0-1 Prothrombin time/DOL2666-79-19 09:19:00* Test Item Value Reference Range Interpretation [...] heart valves. Lab Interpretation (test code = 67951-9) [facility]normal [facility]PROTHROMBIN [facility]/AID3932-28-70 09:19:00* Test Item Value Reference Range Interpretation [...] patie nts wiht mechanical heart valves.MISCELLANEOUS LAB ADGCM0461-76-09 08:04:00* Test Item Value Reference Range Interpretation Comments SCAN RESULT (test code = 2357654) Treadmill tolerance(Non-Nuclear Treadmill)2019-05-15 22:24:56Interface, External Ris In [...] Sera, Hi pinedo (8216) on 05/15/2019 10:24:47 [facility] CenterBAS[facility]OLIC FWNQR3304-33-65 11:48:00* Test Item Value Reference Range Interpretation [...] GFR IS NOT APPLICABLE FOR DIALYSIS PATIENTS. Chess Instructor ID Tanja DASILVA MSpecimen slightly ictericBILIRUBIN, MVLQVE7170-44-66 11:32:00* Test Item Value Reference Range Interpretation Comments BILIRUBIN DIRECT (BEAKER) (test code = 706) 2.0 mg/dL 0.1-0.5 H HEPATIC FUNCTION QNODR9917-38-18 11:32:00* Test Item Value Reference Range Interpretation [...] (test code = 347) 8 U/L 6-55 Chess Instructor ID - VIDYA MSpecimen slightly ictericCBC W/PLT COUNT & AUTO DJRRIYQBBNJL5249-94-41 11:30:00* Test Item Value Reference Range Interpretation [...] code = 2801) 1 % 0-1 PROTHROMBIN TIME/ATH9501-34-08 11:25:00* Test Item Value Reference Range Interpretation [...] mechanical heart valves.Body fluid culture + gram fbzjg1137-13-85 15:44:00* Test Item Value Reference Range Interpretation Comments Result (test code = 6463-4) No growth Gram Stain Result (test code = 1123) No organisms seen [facility] HospitalB[facility] FLUID CULTURE + GRAM GNJGV6306-03-99 15:44:00 * Test Item Value Reference Range Interpretation Comments CULTURE (BEAKER) (test code = 1095) No growth GRAM STAIN RESULT (BEAKER) (test code = 1123) 1+ White blood cells seen GRAM STAIN RESULT (BEAKER) (test code = 60215) No organisms seen Xyzhmtswa1500-13-65 06:38:00* Test Item Value Reference Range Interpretation Comments Magnesium (test code = 49746-0) 1.9 mg/dL 1.6-2.6 PHILLIP (test code = PHILLIP) Chess Instructor ID - ULYSSES M Lab Interpretation (test code = 19647-3) Normal [facility] HospitalPhosphorus2020-03-14 06:38:00* Test Item Value Reference Range Interpretation Comments Phosphorus (test code = 2777-1) 3.4 mg/dL 2.3-4.7 PHILLIP (test code = PHILLIP) Chess Instructor ID - ULYSSES M Lab Interpretation (test code = 69484-4) Normal [facility] HospitalPHOSPHORUS2020-03-14 06:38:00* Test Item Value Reference Range Interpretation Comments PHOSPHORUS (BEAKER) (test code = 604) 3.4 mg/dL 2.3-4.7 Chess Instructor ID - ULYSSES ZQSZZVQXQP1270-92-56 06:38:00* Test Item Value Reference Range Interpretation Comments MAGNESIUM (BEAKER) (test code = 627) 1.9 mg/dL 1.6-2.6 Chess Instructor ID - ULYSSES MBlood Culture - Routine (Left Venipuncture)2019-05-09 20:01:00* Test Item Value Reference Range Interpretation Comments Result (test code = 6463-4) No growth in 5 days [facility] HospitalBLOOD HWHGWOX5536-87-47 20:01:00* Test Item Value Reference Range Interpretation Comments CULTURE (BEAKER) (test code = 1095) No growth in 5 days BLOOD LDHDTTT6503-96-48 20:00:00* Test Item Value Reference Range Interpretation Comments CULTURE (BEAKER) (test code = 1095) No growth in 5 days Hpuinvjv0334-92-09 16:28:00* Test Item Value Reference Range Interpretation Comments Case Report (test code = 104) Medical Cytology Report Case: [id number] Authorizing Provider: Robbie New MD Collected: 05/07/2019 1920 Ordering Location: [address] Received: 05/08/2019 144 Pathologist: Iman Yang MD Specimen: Pericardial DIAGNOSIS (test code = 3220) [file] XGZzMjRccWxcbGFuZzEwMzNcaGljaFxmMVxkYmNoXG PfMOpyB6uiToPqMcHwUme3QWWbtAXtFEKzXte5PCFweSHpYZTVoIgthC7yIFYlqIqgiQ3gbIL6CLJzoy CgsMAMxF1gRVKSkB4pEjD8HtJoKuK9NOOwSYmmhMAfkA7= CPT Code(s) (test code = 3357) q9kxwJYmGRVrqJSgUiJkADSvLKMiz7rzNYJjrZReKeVjGuLsNcWoZcfkuJBqBLSyZyOts7uqy476rWNx a7mvITBmBiR5wWNcFDTadXRrJ385b3pac5kggkGuqCP3GBDcJDY8BYwovcUtibP8VNzrgOUeAkC5ZGqj tpDzQPkbjoUbdtYdWch9FZDqZ483WBM4zLrnn3gcCD E9ZILaACFnZyZrZx9obERmG071NJZaKIENYZFmhXo2GACcvpBlzhJmkZRYn174L672n0rrMPAzcbYoyY xJzarbd9wgW673STMdvKPuduYfSbGzRZCrsVIwyTI6UDYrKN0ubxvsInJqTE1bsbniNtApCO5bbuf4Lm QvYL2lxdyePtCzUVnwRKCejujyHSQko8SnxjsrCF4v V8Vet6N6tX8faCLjFKAaiAQrPyAyGFVzgl3kgOVmYNxig6YfFCG7qaV0rARpsPYzDLFkOB29Qqfkr5Ju FbftLYB7OHOiglQrm5Zuk7vtLrQozePrA7yuW0RaVDDhAXOdEHIaXfXpimUyi4Wqp8XaiAMcqKp2m6gx EKPiYGHygCgal7qaUSG3XHIzM6W2bGHri1gyPIeiGE OdhAT9itfbQKwhMAEqnuT2rbveFNgcMFPzfAW7pdxkYAxpJKNpDuW3nzkkWBybQWZeNUB9HXcxt510OW A6JCeiOjblCQmxEMOatgJsiwWqzWtwRNFjMFHrRImhEFQtTBijYTFxCGPjBhEhzHyqpJjtfL1zAfFsFe RnLJuxYI6wSLThN1jhnASnCJYeWKAuO7nxLtIdkW2eqOmwBPzmpoTfJHf7IET9WVUyfr5= CLINICAL DATA (test code = 3355) v4lnwJEiFFKjeCVpRpIwNJKlLOHnq2neMPZqwNXwZnAiOoEuIjZbFsoqzXVbPEKxPzWxw4wcv303aFJo y1fhEQPeNnD5vDJtTIWrxVCzJ280l1lgq2snlnWagJI0DYYeUAI7GGhezvPujoJ8XHtldDEqNeJ2AGsi glZiNWxdepRzuhVtDve4QZRlV026ZDR4zOvbz9baKH S4UYRiPXMhGhKcKt3sxKJtT012RTSvSIMFAIUavBe2WEPsmoBsliJxrIWRf082Y621s4uyLUJrruOaeH pXlivtn6euF533ALKzlLMjjgDqMcApGYTctBCdsDZ2HUDhCZ9dmdcaCdYkTV9wjbvnMnKnZP0ylof0Rx QlDX3bgqszAyXyZGffRDNvqmreSFMwh0LsjefbSO4p H4Xut3V3hU9nrCQvQXYliAEqGgPdENDdcj7foAGbQCvcd4BbAAF6grY5xJSqyIZbQLFhBE08Ghzja6Xi OwmvKKL6EBTeihOwx2Tqo1cvLjEwwfFpE1bvV2IxLHGuQZSbFZZiVoWesmLlw2Ecp2RrkQQbiBr5g6mk SGDpLGSurNdqg1iiGUK9SALoE2J4oIPtg6vzWQacCC UofUP1vazjTQenBQCydcT0jjaeSUlsXWLhqWK4fkpyRErcJEAfNaN1cnirZLfwCHPfBYX9FTssy538VB T9QIaaCwnaUYedGNXtsaAqsxVvvWbcNWEhFBJzQEiqTEUeUPfpKLSwDORmWkAusIeusAaazO6oMjYiEe QbDXuyKF6sVNMuF1cxpIAbZLEkZBTtU8qnWjCygU8q wSgoMOscayOtANHmpeibHJRgeAOuWCJsNvGbxL6zVJLreDBcmM5ptXUupFWdaN== SPECIMEN SOURCE (test code = 3377) c3kkqYHpDFItkUCjGjLrXRIfZRIle4tjFIPdvEUlMgKpBhQkXiZgMizphAOlWEGnEjMiw9jsb367vCPy o5dkTYSxVrU5vVHkUAVdhDFhK635z8hnw5cqhyLntMB3KHXeJTL7QHfvzuLudnQ6YApeuVToChO6ULco vpEqWSddlqIfqlWaFjp7TIWeC731IGL8dUuhr9yhKC T8PRBoGJIkXaVpGp1eaTGpN557ZRZiGGALOAWekGf7UKQaxrKpqmSysYPGj991K372p1nfRCIkweFljH qLvroll8drM136WVQanYKmrgXtMuOgGGSvnPNzyII8MERlNA1poqeyBgKuKI0tdhybYyLoQO7mseq1Ga XcAN9xivaoSfAlRPpuBUCefdykUSMxs1GgrjdfGV7k E6Jst6O5mK8fyJZdIJUbcVQpIyFlQKCzeb8gkLEqZRhmo5BsDLJ6xqY6nCDbeQVjZBWwJH76Rcpye7Ic UvfrTVX8PTAynuGcz2Pqt6ycGuVmgzCfY0ljE7FlFARbCDHaVOXbQuCfkaGoy2Brk8UlqHYztPc2n4ff WFIqHTZepXbty0gqGCL6UYYnV5O2hUOwj3ftFGzxRU MogSD3tvtjMUfuGTHsmsO5ntgtAVcmPMDxaUI9cjfcYVweHGKiNjG7bqotGYfpQEHvUES4NAvkm052AR C9AWvkGkilNIipMHMorjHnmkTrdQmtLHVyHKWkLUsfVRVbIHvyZKJgRQKxJySwrAxerOizpN8gPvIzEb ByMGbhNM3jPKBrV5hprCZrFWTvJCYhJ4bcLgBmjG9i aFxmMFxmczIwIFBFUklDQVJESUFMIEZMVUlEXHBhcn0= GROSS DESCRIPTION (test code = 3366) u4bweBTjWQQfjMGgYqSsXZRwIHLhp5enBGSgvEDyCxNmEgOtYjSrQijgtQLoOUBxBiJjn1zgv853bSVd c2phUVOnJgJ9hDUpBMVicGKzL235SKYeWDisa2vpj8PyNBGqwNNfk4G7VJAFlcqceUv3hYiaY09qb0X7 NdshO6tlIXHoQLPjU4BnAV8jDGOkRxn8KOL1NVD0TI AnRQJoE5AdBM4ePPKeiITeVIw5c0gzaRuaCRBxNPR7l7yhLIwfuzWwSV5mzl3xoXk2z0ffteYfZFDxVF FjjNHKKPJwH9KqiAltOb1rbOp0kJazObncTRG3Gjb6TE5zxk51jbd0iCtpSOZbtdbdAoH3EYpqRZXpjm qrDOl8KRffWDMtlLgbCFhtCNUwiawmYOqzIJLwdRpx IOktOWYtZltdBAggNMWpJIX4BGiqy889OQR9EPuwy5sxw5xkqLZzPop7XCLpQuNfGotxEJqqd9Boz5bx KPYewp5bOKF9iWYdcWqhm0G0xBTdHUXpzFGwtkOgLAPdAcK0SNumVL8kcc91ZFYeZLS2jx1gmPPgoLqi uzOxqDHuIIoqV4YdTCIat993MGBeT7RaTDXro0X4hm SxEhQxYBIgfLA6ukR4GGGfHSz4wPWymxX9xuPlyRNkO6lkhB24DxTllVNjU8EbzJ69ToRpeCTdH9LqsL 04OcRtyPIbS3DmyN04OdGwhNTcXRAmkRVnKw6riQWbqNUff1TgiJFvPOhvM49hq218TNVyyeFsG5bxpJ MdatjgsJFynryjUKvojrZ7UHIgLPVpLFknGCBfAVPe BdDjsDOwVkHwUsQxeEvbdBwcRNbpXaVjAVQbHAfdZ1mtXkJiGqNmQlO4LXXhiLesGTZpt25zkAAsdFKq RChcMREepLWte8LnxnQsbTXdAXYnbOobM1UgXHdoNHPxSKYeXMIqibPAMCVszPNiSXnkOOMlKtVlDPVo cn0= STATEMENT OF ADEQUACY (test code = 2757) Satisfactory Gross assessment was performed at (test code = 2777) [facility], Department of Pathology, [address] [place] [address], Technical component was performed at (test code = 2778 ) [facility], Department of Pathology, [address] [place] [id number], Professional component was performed at (test code = 2 779) [facility], Department of Pathology, [address] [place] [address], [facility] HospitalCYTOLOGY2020-03-13 16:28:00Medical Cytology Report Case: [id number] Authorizing Provider: Robbie New MD Collected: 05/07/2019 1920 Ordering Location: [place] [address] CCU Received: 05/08/2019 1445 Pathologist: Iman Yang MD Specimen: Pericardial PERICARDIAL FLUID (CYTOSPINS): - NEGATIVE FOR MALIGNANCY Signing Pathologist Direct Phone Line: [phone] signed by Iman Yang MD on 05/09/2019 at 4:28 [id number] effusion, cirrhosisPERICARDIAL [id number] mls bloody fluid; 4 cytospinsCollected: 031 120Received: [id number] [facility], Department of P athology, [address] [place] [address], [facility], Department of Pathology, [address] [place] [address] [phone], [facility], [address] [place] [address], YGT/CT, CARDIAC PERF REST AND [id number] 16:05:00Reason for exam:->CADFINAL REPORT PROCEDURE: MYOCARDIAL PERFUSION PET IMAGING (Rest/Stress)CPT CODE: 47557 INDICATION: Assess symptoms/risk factors of possible CAD [...] study for comparison. Signed: Pedro Pablo Montero [facility] Verified Date/ Time: 05/09/2019 16:05:35 Reading Location: [facility] 3rd Flr P327B Nuc Med Reading R oom Myocardial Perfusion Pet/CT (Rest & Stress)2019-05-09 16:05:00Interface, External Ris In - 05/09/2019 4:07 PM CDTFINAL REPORT PROCEDURE: MYOCARDIAL PERFUSION PET IMAGING (Rest/Stress)CPT CODE: 50853 INDICATION: Assess symptoms/risk factors of possible CAD [...] MDReport Verified Date/Time: 05/09/2019 16:05:35 Reading Location: [facility] 3rd Flr P327B Nuc Med Reading Room [facility] HospitalComprehensive metabolic jjanw0401-62-04 06:54:00* Test Item Value Reference Range Interpretation Comments Protein, Total (test code = 2885-2) 6.1 6.0- 8.3 gm/dL Specimen slightly hemolyzed Albumin (test code = 04180-1) 2.9 g/dL 3.5-5 L Specimen slightly hemolyzed [...] mg/dL 70-105 H Calcium (test code = 05619-5) 8.1 mg/dL 8.4-10.2 L AST (test code = 1920-8) 30 U/L 5-34 Spe cimen slightly hemolyzed ALT (test code = 1742-6) 8 U/L 6-55 Spe cimen slightly hemolyzed EGFR (test code = 75183-9) 16 mL/min/1.73 sq m ESTIMATED GFR IS NOT ACCURATE CREATININE CLEARANCE IN PREDICTING GLOMERULAR FILTRATION RATE. ESTIMATED GFR IS NOT APPLICABLE FOR DIALYSIS PATIENTS. PHILLIP (test code = PHILLIP) Chess Instructor ID - ULYSSES MSpecimen slightly icteric Lab Interpretation (test code = 57188-5) Abnormal [facility] [id number] 06:54:00* Test Item Value Reference Range Interpretation [...] GFR IS NOT APPLICABLE FOR DIALYSIS PATIENTS. Chess Instructor ID - ULYSSES MSpecimen slightly ictericCBC W/PLT [...] (test code = 2801) 1 % 0-1 SRHWXHPAM1435-02-59 06:50:00* Test Item Value Reference Range Interpretation Comments MAGNESIUM (BEAKER) (test code = 627) 2.1 mg/dL 1.6-2.6 Specimen slightly hemolyzed Chess Instructor ID - ULYSSES EPXABLTMQEQ8084-01-61 06:50:00* Test Item Value Reference Range Interpretation Comments PHOSPHORUS (BEAKER) (test code = 604) 3.4 mg/dL 2.3-4.7 Specimen slightly hemolyzed Chess Instructor ID - ULYSSES MLimited 2D Vfqtdigrpfsjly2921-64-10 13:37:26Ejection FractionSLEH ECHO HEARTLAB MKCKESSON CPACSInterface, External Ris In - 05/08/2019 1:37 PM CDTTransthoracic Echocardiography Report (TTE) Demographics Patient Name INDRA GALVAN Date of Study 05/08/2019 YAN CORDERO Gender Male Visit Number [id number] Race Unknown Room Number 6213 Number Date of 1980 Referring Physician ROBBIE NEW Age 38 year(s) Research Associate Molecular Biology Renny Yepez Feltmaker Nick Navarro I nterpreting Brandy Jackson MD [...] (>60%) . Left Atrium LA size is vtnh-hu-hhnuzeszqg enlarged . Right Ventricle Normal right ventricle [...] Ao Root S of Yasmin.: 3.23 cm [facility]2D [facility] W/Doppler(CW/PW/Color)2019-05-08 09:47:52Ejection FractionSLEH ECHO HEARTLAB MKCKESSON CPACSInterface, External Ris In - 05/08/2019 9:48 AM CDTTransthoracic Echocardiography Report (TTE) Demographics Patient Name INDRA GALVAN Date of Study 05/07/2019 YAN CORDERO Gender Male Visit Number [id number] Race Unknown Room Number 6213 Number Date of 1980 Referring Robbie New MD Physician Age 38 year(s) Research Associate Molecular Biology Aneudy Jerez Interpreting Vic Caruso Physician Fellow [...] A moderate-large circumferential pericardial effusion is present. [facility] HospitalManual Lpuskgkdzryd4716-25-95 07:53:00* Test Item Value Reference Range Interpretation [...] Poikilocytes (test code = 966) 1+ few [place] Cells (test code = 474) 1+ few Artifact (test code = 3432) Present Platelet Conc (test code = 3438) Adequate PHILLIP (test code = PHILLIP) Chess Instructor ID - Ivonne Espinal comments: Slide comm ents: Lab Interpretation (test code = 42046-6) Abnormal [facility] HospitalCBC W/PLT COUNT & AUTO ETYQZRTEGEWO0623-14-03 07:53:00* Test Item Value Reference Range Interpretation [...] (BEAKER) (test code = 966) 1+ few [place] CELLS (BEAKER) (test code = 474) 1+ few ARTIFACT (CELLAVISION)(BEAKER) (test code = 3432) Present PLATELET CONCENTRATION (CELLAVISION)(BEAKER) (test code = 3438) Cheryl quate Chess Instructor ID - Ivonne Espinal comments: Slide comments: Mdepvrsoeklsi6962-02-77 04:01:00* Test Item Value Reference Range Interpretation Comments Procalcitonin (test code = 97078-7) 3.64 ng/mL <0.05 H PHILLIP (test code = PHILLIP) SEPSIS RISK (ng/mL)Low: 0.05-0.50Intermediate: 0.51-2.00High: >=2.01 Lab Interpretation (test code = 39990-7) Abnormal [facility] HospitalPfcginDGYPRYOCSNGAA8151-77-55 04:01:00* Test Item Value Reference Range Interpretation Comments PROCALCITONIN (BEAKER) (test code = 3036) 3.64 ng/mL <0.05 H SEPSIS RISK (ng/mL)Low: 0.05-0.50Intermediate: 0.51-2.00High: > =2.01BASIC METABOLIC [id number] 03:47:00* Test Item Value Reference Range Interpretation [...] GFR IS NOT APPLICABLE FOR DIALYSIS PATIENTS. Chess Instructor ID - LAUREN WSpecimen moderately aucdmxnQFRPPJGDTC2168-85-50 03:44:00* Test Item Value Reference Range Interpretation Comments PHOSPHORUS (BEAKER) (test code = 604) 2.2 mg/dL 2.3-4.7 L Chess Instructor ID - LAUREN ULCVBDYYHU2206-07-40 03:44:00* Test Item Value Reference Range Interpretation Comments MAGNESIUM (BEAKER) (test code = 627) 1.8 mg/dL 1.6-2.6 Chess Instructor ID - LAUREN Powers Leuko-Red VXJ7906-64-96 23:54:00* Test Item Value Reference Range Interpretation Comments CROSSMATCH (test code = 2264) COMPATIBLE Unit ABO (test code = 9613324) B Pos UNIT NUMBER (test code = 934-0) [id number] Status (test code = 3307290) TX_TIMEINCHART Blood Bank Product (test code = 2263) RED BLOOD CELLS PRODUCT CODE (test code = 933-2) [id number] [facility] HospitalCarotid doppler ywceuysnj1929-86-40 16:57:29 Ejection FractionSLEH ECHO HEARTLAB MKCKESSON CPACSRight Impression1. The international account executive al carotid artery is within normal limits.2. [...] 05/06/2019 YAN CORDERO Age 38 Visit Number [id number] Gender Male Accession Elizabeth tinajero [id number] Date of 1980 Referring Radha Clayrera Room Number 6213 Physician SONIDOAlfred Research Associate Molecular Biology Cb Maki S Interpreting Karen Blackwell Physician [...] left side. - Additional Measurements:ICAPSV/CCAPS V 0.96.ICAEDV/CCAEDV 1.42.[facility] W/PLT COUNT & AUTO GJYOHKXXLOWO7700-73-13 11:24:00* Test Item Value Reference Range Interpretation [...] (CELLAVISION)(BEAKER) (test code = 3438) Cheryl quate Chess Instructor ID - Marcella OverholtUser comments: Slide comments: COMPREHENSIVE METABOLIC RVAWX9479-75-89 07:21:00* Test Item Value Reference Range Interpretation [...] GFR IS NOT APPLICABLE FOR DIALYSIS PATIENTS. Chess Instructor ID - ULYSSES MSpecimen slightly ewuqdux3W Echo W/Doppler(CW/PW/Color) 2019-05-06 15:24:38Ejection FractionSLEH ECHO HEARTLAB MKCKESSON CPACSInterface, External Ris In - 05/06/2019 3:24 PM CDTTransthoracic Echocardiography Report (TTE) Demographics Patient Name INDRA GALVAN Date of Study 05/06/2019 YAN CORDERO Gender Male Visit Number [id number] Race Unknown Room Number 2454 Number Date of 1980 Referring Robbie New MD Physician Age 38 year(s) Research Associate Molecular Biology Aneudy Jerez Feltmaker Joanna Whitley Interpreting Pratik Pak Physician MD [...] Velocity: 2.75 m/s TR Gradient: 30.26 mmHg [facility] HospitalUrine zvpbnhu5800-95-20 10:47:00* Test Item Value Reference Range Interpretation Comments Result (test code = 6463-4) <10,000 col/mL skin chase [facility] HospitalCBC W/PLT COUNT & AUTO VUWNLODHBELQ1997-04-70 09:56:00* Test Item Value Reference Range Interpretation [...] (CELLAVISION)(BEAKER) (test code = 3438) Cheryl quate Chess Instructor ID - Giselle RuckerEdwin comments: Slide comments: WBC: SEGMENTED WI TH TOXIC GRANULATIONS PRESENT ECG 12 haar0538-80-81 06:34:13Interface, External Ris In - 05/06/2019 6:34 AM CDTVentricular Rate 128 BPMAtrial Rate 89 BPMQRS Duration 94 msQ-T Interval 336 msQTC Calculation(Bazett) 490 msR [place] 151 degreesT [place] -88 degreesAtrial fibrillationLeft posterior fascicular blockST & [...] 6:34:11 [facility] HospitalCOMPRE[facility]ENSIVE METABOLIC [id number] 06:25:00* Test Item Value Reference Range Interpretation [...] GFR IS NOT APPLICABLE FOR DIALYSIS PATIENTS. Chess Instructor ID - ULYSSES MSpecimen moderately cwizuczOEERLGDLL4055-21-81 06:24:00* Test Item Value Reference Range Interpretation Comments MAGNESIUM (BEAKER) (test code = 627) 1.9 mg/dL 1.6-2.6 Chess Instructor ID - ULYSSES MBASIC METABOLIC LMFPO5558-07-27 21:58:00* Test Item Value Reference Range Interpretation [...] GFR IS NOT APPLICABLE FOR DIALYSIS PATIENTS. Chess Instructor ID - BSSpecimen moderately ictericTropoimann Y9560-41-37 21:56:00* Test Item Value Reference Range Interpretation Comments Troponin I (test code = 02895-5) <0.01 0-0.03 PHILLIP (test code = PHILLIP) [...] failure, acidosis, acute neurological disease, and persistent tachyarrhythmia.Chess Instructor ID - BS Lab Interpretation (test code = 40294-7) Normal [facility] HospitalTROPOPHO[facility] [id number] 21:56:00* Test Item Value Reference Range Interpretation [...] acidosis, acute neurological disease, and per sistent tachyarrhythmia.Chess Instructor ID - QAOSCNCWEUS4161-65-54 21:49:00* Test Item Value Reference Range Interpretation Comments MAGNESIUM (BEAKER) (test code = 627) 1.8 mg/dL 1.6-2.6 Specimen slightly hemolyzed Chess Instructor ID - BSCBC W/PLT COUNT & AUTO QMVKUFCWSXMW2713-45-29 21:32:00* Test Item Value Reference Range Interpretation [...] 2801) 1 % 0-1 Hepatitis B surface qicmqlv2094-50-70 17:35:00* Test Item Value Reference Range Interpretation Comments HBsAg Screen (test code = 5195-3) Nonreactive Nonreactive PHILLIP (test code = PHILLIP) Chess Instructor ID - BS Lab Interpretation (test code = 40136-3) Normal [facility] HospitalHEPATITIS B SURFACE CNSERAQ4463-65-48 17:35:00* Test Item Value Reference Range Interpretation Comments HEPATITIS B SURFACE ANTIGEN (2) (BEAKER) (test code = 2585) Nonreactive Nonreactive Chess Instructor ID - BSOccult blood, kkcfg9463-98-20 14:45:00* Test Item Value Reference Range Interpretation Comments Occult blood (test code = 2335-8) Negative Negative Lab Interpretation (test code = 73528-7) Normal [facility] HospitalOCCULT BLOOD, FUGNH3277-04-96 14:45:00* Test Item Value Reference Range Interpretation Comments FECAL OCCULT BLOOD (BEAKER) (test code = 618) Negative Negative Zgtmbjlw7070-04-92 10:41:00* Test Item Value Reference Range Interpretation Comments Ferritin (test code = 2276-4) 1081 ng/mL 5-275 H PHILLIP (test code = PHILLIP) Chess Instructor ID - AAHAMID Lab Interpretation (test code = 67739-4) Abnormal [facility] HospitalFERRITIN2020-03-09 10:41:00* Test Item Value Reference Range Interpretation Comments FERRITIN (BEAKER) (test code = 361) 1081 ng/mL 5-275 H Chess Instructor ID - AAHAMIDDirect AHG (LUMA)/Direct Wafoeo2026-45-72 10:38:00* Test Item Value Reference Range Interpretation Comments Direct AHG-IGG (test code = 1006-6) NEGATIVE Direct AHG-C3B, C3D (test code = 1003-3) NEGATVIE [facility] HospitalABORH, rolyyz3581-24-13 10:28:00* Test Item Value Reference Range Interpretation Comments ABO Grouping (test code = 2588) B Rh Factor (test code = 2589) POS [facility] HospitalCOMPREHENSIVE METABOLIC HBQPH2379-75-87 10:25:00* Test Item Value Reference Range Interpretation [...] GFR IS NOT APPLICABLE FOR DIALYSIS PATIENTS. Chess Instructor ID - ROZINA LSpecimen moderately ictericIron, TIBC, % sat. (without ferritin)2019-05-05 10:21:00* Test Item Value Reference Range Interpretation Comments Iron (test code = 2498-4) 88.0 ug/dL 40-160 TIBC (test code = 2500-7) 130 ug/dL 250-450 L Iron % Saturation (test code = 2502-3) 68 % 20-55 H PHILLIP (test code = PHILLIP) Chess Instructor ID - ROZINA Camacho Lab Interpretation (test code = 35401-0) Abnormal [facility] HospitalIRON, TIBC, % SAT. (WITHOUT FERRITIN)2019-05-05 10:21:00* Test Item Value Reference Range Interpretation Comments IRON (BEAKER) (test code = 547) 88.0 ug/dL 40.0-160.0 TOTAL IRON BINDING CAPACITY (BEAKER) (test code = 769) 130 ug/dL 250-450 L IRON % SATURATION (2) (BEAKER) (test code = 2590) 68 % 20-5 5 H Chess Instructor ID - PIAYA LBILIRUBIN, DASAWO6234-77-98 10:20:00* Test Item Value Reference Range Interpretation Comments BILIRUBIN DIRECT (BEAKER) (test code = 706) 3.0 mg/dL 0.1-0.5 H Chess Instructor ID - PIAYA LCBC W/PLT COUNT & AUTO SJSSWYFXGHMZ1903-15-18 10:08:00* Test Item Value Reference Range Interpretation [...] code = 2801) 1 % 0-1 Reticulocyte uimpe2791-01-68 10:04:00* Test Item Value Reference Range Interpretation Comments % Retic (test code = 49442-8) 2.3 % 0.5-1.8 H PHILLIP (test code = PHILLIP) Chess Instructor ID - 6000 Lab Interpretation (test code = 46387-5) Abnormal [facility] HospitalRETICULOCYTE VWHSF6567-35-73 10:04:00* Test Item Value Reference Range Interpretation Comments RETICULOCYTE COUNT PCT (BEAKER) (test code = 575) 2.3 % 0.5- 1.8 H Chess Instructor ID - 6000Lactic acid, fhvogj9875-03-94 00:50:00* Test Item Value Reference Range Interpretation Comments Lactate, Venous (test code = 2872) 2.6 mmol/L 0.5-2.2 H PHILLIP (test code = PHILLIP) Chess Instructor ID - PIAYA LSpecimen slightly icteri c Lab Interpretation (test code = 95162-5) Abnormal [facility] HospitalLACTIC ACID, [id number] 00:50:00* Test Item Value Reference Range Interpretation Comments LACTATE BLOOD VENOUS (2) (BEAKER) (test code = 2872) 2.6 mmol/L 0 .5-2.2 H Chess Instructor ID - PIAYA LSpecimen slightly ictericStrep pneumoniae dmtdqfb0597-19-70 21:50:00* Test Item Value Reference Range Interpretation Comments Strep pneumoniae Antigen (test code = 33023-0) Presump tive negative for pneumococcal pneumonia - [...] the test. Lab Interpretation (test code = 45019-8) Normal [facility] HospitalTREP PNEUMONIAE PYAOTUX2040-70-06 21:50:00* Test Item Value Reference Range Interpretation Comments STREP PNEUMONIAE ANTIGEN ([facility]) (test code = 1615) P resumptive negative for pneumococcal pneumonia - see comment Presumptive negative for pneumococcal pneumonia - see commen Presumptive negative for pneumococcal pneumonia, suggesting no current or recent pneumococcal infection. Infection due to S. pneumoniae cannot be ruled out since the antigen present in the sample may be below the detection limit of the test. Legionella antigen, mbkcq6104-26-21 21:49:00* Test Item Value Reference Range Interpretation Comments Legionella Urine Antigen (test code = 93993-1) Negative - see comme nt Negative for L. pneumophila serogroup 1 antigen, suggesting no recent or current infection with this serogroup. Legionellosis cannot be ruled out since other serogroups and species may cause disease. [facility] HospitalLEGIONELLA ANTIGEN, [id number] 21:49:00* Test Item Value Reference Range Interpretation Comments L. PNEUMOPHILA SEROGP 1 UR AG ([facility]) (test code = 11 56) Negative - see comment Negative for L. pneu mophila serogroup 1 antigen, suggesting no recent or current infection with this serogroup. Legionellosis cannot be ruled out since other serogroups and species may cause disease. Type and screen, automated ([facility] and [facility] only)2019-05-04 21:22:00* Test Item Value Reference Range Interpretation Comments ABO/RH AUTOMATED ([facility]) (test code = 2260) B POSITIVE Ab Scrn (test code = 890-4) NEGATIVE [facility] HospitalPROCALCITONIN2020-03-08 20:32:00* Test Item Value Reference Range Interpretation Comments PROCALCITONIN ([facility]) (test code = 3036) 14.51 ng/mL <0.05 HH SEPSIS RISK (ng/mL)Low: 0.05-0.50Intermediate: 0.51-2.00High: > =2.01Urinalysis w/Microscopic + Reflex to Clgvgft1423-23-91 20:25:00* Test Item Value Reference Range Interpretation Comments Color, UA (test code = 5778-6) Yellow Clarity, UA (test code = 5767-9) Hazy Specific Raymond, UA (test code = 5811-5) 1.011 1.001-1.035 pH, UA (test code = 5803-2) 5.5 5.0-8.0 Protein, UA (test code = 47049-8) 100 mg/dL Negative A Glucose, UA (test code = 365) 100 mg/dL Negative A Ketones, UA (test code = 2514-8) Negative Negative Bilirubin, UA (test code = 50496-9) Negative Negative Blood, UA (test code = 48321-4) Negative Negative Nitrite, UA (test code = 5802-4) Negative Negative Leukocytes, UA (test code = 5799-2) Negative Negative Urobilinogen, UA (test code = 34282-7) 0.2 mg/dL 0.2-1 RBC, UA (test code = 71143-4) 7 /HPF WBC, UA (test code = 5821-4) 12 /HPF Bacteria, UA (test code = 05316-6) Occasional Mucus (test code = 8247-9) Rare Squam Epithel, UA (test code = 37269-3) 18 /HPF Hyaline Casts, UA (test code = 85301-6) 78 /LPF Casts (test code = 9842-6) 70 /LPF Crystals, Urine (test code = 83208-2) Occasional Yeast (test code = 72025-6) Moderate Specimen Source (test code = 2795) PHILLIP (test code = PHILLIP) Chess Instructor ID - [auto]Chess Instructor ID - tech Lab Interpretation (test code = 03095-8) Abnormal [facility] HospitalURINALYSIS W/ REFLEX URINE XTMMAPX3951-14-05 20:25:00* Test Item Value Reference Range Interpretation [...] 1585) Moderate SOURCE(BEAKER) (test code = 2795) Chess Instructor ID - [auto]Chess Instructor ID - techPT/rMCD4256-65-01 20:11:00* Test Item Value Reference Range Interpretation Comments Protime (test code = 5902-2) 18.9 11.9- 14.2 seconds H INR (test code = 6301-6) 1.6 <=5.9 PTT (test code = 87664-7) 40.7 22.5- 36.0 seconds H PHILLIP (test code = PHILLIP) Effective 07/24/2018: PT Refe rence Range ChangeNew: 11.9- 14.2 Previous: 11.7-14.7 RECOMMENDED COUMADIN/WARFARIN INR THERAPY RANGESSTANDARD DOSE: 2.0-3.0 Includes: PROPHYLAXIS for venous thrombosis, sys temic embolization; TREATMENT for venous thrombosis and/or pulmonary embolus.HIGH RISK: Target INR is 2.5-3.5 for patients wiht mechanical heart valves. Lab Interpretation (test code = 66432-5) Abnormal [facility] HospitalPT/DDMM6337-01-66 20:11:00* Test Item Value Reference Range Interpretation [...] Range Interpretation Comments BNP (test code = 39681-5) 612 pg/mL 0-100 H PHILLIP (test code = PHILLIP) Chess Instructor ID - DB Lab Interpretation (test code = 78906-1) Abnormal [facility] HospitalRapid Influenza A&B Pkhjkg6325-24-25 20:00:00* Test Item Value Reference Range Interpretation Comments Rapid Influenza A Antigen (test code = 18913-8) Negative Negative, Inconclusive Rapid influenza B Antigen (test code = 62458-9) Negative Negative, Inconclusive Lab Interpretation (test code = 30132-9) Normal [facility] HospitalB-TYPE NATRIURETIC FACTOR (BNP)2019-05-04 20:00:00 * Test Item Value Reference Range Interpretation Comments B-TYPE NATRIURETIC PEPTIDE (BEAKER) (test code = 700) 612 pg/mL 0-100 H Chess Instructor ID - DBTROPONIN I1013-19-95 20:00:00* Test Item Value Reference Range Interpretation [...] acidosis, acute neurological disease, and per sistent tachyarrhythmia.Chess Instructor ID - DBRAPID INFLUENZA A&B XMQHJC4985-14-48 20:00:00* Test Item Value Reference Range Interpretation Comments RAPID INFLUENZA A AG (BEAKER) (test code = 1622) Negative Negative, Inconclusive RAPID INFLUENZA B AG (BEAKER) (test code = 1623) Negative Negative, Inconclusive BVFCCOAAKQ8238-77-45 19:54:00* Test Item Value Reference Range Interpretation Comments PHOSPHORUS (BEAKER) (test code = 604) 2.9 mg/dL 2.3-4.7 Chess Instructor ID - QGFRXNNKRBC9544-23-01 19:54:00* Test Item Value Reference Range Interpretation Comments MAGNESIUM (BEAKER) (test code = 627) 2.0 mg/dL 1.6-2.6 Chess Instructor ID - DBCOMPREHENSIVE METABOLIC TTPCU9109-30-47 19:54:00* Test Item Value Reference Range Interpretation [...] GFR IS NOT APPLICABLE FOR DIALYSIS PATIENTS. Chess Instructor ID - DBSpecimen slightly ictericCBC W/PLT COUNT [...] = 2801) 1 % 0-1 LACTIC ACID, NGKPJS1691-35-31 19:48:00* Test Item Value Reference Range Interpretation Comments LACTATE BLOOD VENOUS (2) (BEAKER) (test code = 2872) 2.7 mmol/L 0 .5-2.2 H Specimen slightly hemolyzed Chess Instructor ID - DBSpecimen slightly ictericCRITICAL OWGF0531-38-77 18:47:50Jimena Calhoun MD 05/04/2019 9:12 PMCritical CarePerformed [...] condition and r eview of old charts. [facility] HospitalRAD, CHEST, 1 VIEW, NON DEPT [...] MDReport Verified Date/Time: 05/04/2019 18:08:08 Reading Location: [facility] C013 Transitional Reading Room chest 1 view portable / snnowlz3016-14-38 18:08:00Interface, External Ris In - 05/04/2019 6:10 PM CDTFINAL REPORT EXAM: Chest one view COMPARISON: December 22, 2018 Clinical history: Weakness FINDINGS: There is persistent cardiomegaly. There is interval improvement in pulmonary edema. The right internal jugular chest tunneled dialysis catheter appears unchanged in position. The regional osseous structures are unremarkable Signed: Sadiq Haines MDReport Verified Date/Time: 05/04/2019 18:08:08 Reading Location: [address] Transitional Reading Room [facility] METABOLIC RFAJD4680-06-40 11:09:00* Test Item Value Reference Range Interpretation [...] GFR IS NOT APPLICABLE FOR DIALYSIS PATIENTS. Chess Instructor ID - LMSpecimen slightly ictericHEPATIC FUNCTION AIHJK7121-40-74 11:04:00* Test Item Value Reference Range Interpretation [...] (test code = 347) 12 U/L 6-55 Chess Instructor ID - LMSpecimen slightly ictericPROTHROMBIN TIME/HVU4543-99-27 10:47:00 * Test Item Value Reference Range [...] mechanical heart valves.CBC W/PLT COUNT & AUTO EKAKUJDQOWUY2683-58-17 10:40:00* Test Item Value Reference Range Interpretation [...] = 2801) 0 % 0-1 BASIC METABOLIC GHPVR6439-26-64 11:22:00* Test Item Value Reference Range Interpretation [...] GFR IS NOT APPLICABLE FOR DIALYSIS PATIENTS. Chess Instructor ID - NTPSpecimen slightly ictericHEPATIC FUNCTION KMHOQ6102-88-73 11:09:00* Test Item Value Reference Range Interpretation [...] (test code = 347) 16 U/L 6-55 Chess Instructor ID - NTPSpecimen slightly ictericCBC W/PLT COUNT [...] = 2801) 0 % 0-1 No clotPROTHROMBIN TIME/IUC4802-37-12 11:03:00* Test Item Value Reference Range Interpretation [...] patie nts wiht mechanical heart valves.COMPREHENSIVE METABOLIC LDXAZ1890-64-79 12:23:00* Test Item Value Reference Range Interpretation [...] APPLICABLE FOR DIALYSIS PATIENTS. Specimen slightly ictericBILIRUBIN, NTVBYP6548-49-86 12:18:00* Test Item Value Reference Range Interpretation Comments BILIRUBIN DIRECT (BEAKER) (test code = 706) 2.4 mg/dL 0.1-0.5 H CBC W/PLT COUNT & AUTO MVUYDHUBTWCH0893-57-25 12:16:00* Test Item Value Reference Range Interpretation [...] code = 2801) 1 % 0-1 PROTHROMBIN TIME/MDS4276-04-44 12:09:00* Test Item Value Reference Range Interpretation [...] patie nts wiht mechanical heart valves.HLA TYPING BF9930-04-45 21:42:00* Test Item Value Reference Range Interpretation [...] and its performance characteristics determined by the [facility]. It has not [...] to perform high complexity clinical laboratory testing. [facility] HospitalHLA TYPING [id number] 21:42:00* Test Item Value Reference Range Interpretation [...] and its performance characteristics determined by the [facility]. It has not [...] to perform high complexity clinical laboratory testing. [facility] HospitalCOMPREHENSIVE METABOLIC [id number] 12:19:00* Test Item Value Reference Range Interpretation [...] APPLICABLE FOR DIALYSIS PATIENTS. Specimen moderately ictericBILIRUBIN, [id number] 12:18:00* Test Item Value Reference Range Interpretation Comments BILIRUBIN DIRECT (BEAKER) (test code = 706) 4.1 mg/dL 0.1-0.5 H U/S, PELVIS, WITH [id number] 11:35:00Reason for Exam:->esrd/kidney transplant evaluationFINAL REPORT Pelvic [...] MDReport Verified Date/Time: 02/03/2019 11:35:01 Reading Location: [address] Radiology Reading Room pelvis with sjyupmp0582-57-60 11:35:00Interface, External Ris In - 02/03/2019 11:37 [...] Verified Date/Time: 02/03/2019 11:35:01 Reading Locati on: [address] Radiology Reading Room [facility] HospitalPROTHROMBIN TIME/[id number] 11:12:00* Test Item Value Reference Range Interpretation [...] mechanical heart valves.CBC W/PLT COUNT & AUTO PGCSTRMHXJUC4567-40-79 11:10:00* Test Item Value Reference Range Interpretation [...] 2801) 1 % 0-1 AB SPECIFICITY CLASS [id number] 09:48:00* Test Item Value Reference Range Interpretation Comments AB Specificity Class I (test code = 3457) NO CLASS I A NTIBODY DETECTED WITH MFIs > 4000 PHILLIP (test code = PHILLIP) Disclaimer: This test was de veloped and its performance characteristics determined by the [facility]. It has not [...] to perform high complexity clinical laboratory testing. [facility] HospitalFLOW PRA CLASS I WITH REFLEX TO ANTIBODY XPALLOLIPYX0985-40-21 10:06:00* Test Item Value Reference Range Interpretation Comments Flow Class I Percent Positive (test code = 3229) 20 PHILLIP (test code = PHILLIP) Disclaimer: This test was de veloped and its performance characteristics determined by the [facility]. It has not [...] to perform high complexity clinical laboratory testing. [facility] HospitalFLOW PRA CLASS II WITH REFLEX TO ANTIBODY [id number] 10:06:00* Test Item Value Reference Range Interpretation Comments Flow Class II Percent Positive (test code = 3231) 0 PHILLIP (test code = PHILLIP) Disclaimer: This test was de veloped and its performance characteristics determined by the [facility]. It has not [...] to perform high complexity clinical laboratory testing. [facility] HospitalMISCELLANEOUS LAB [id number] 07:41:00* Test Item Value Reference Range Interpretation Comments SCAN RESULT (test code = 7654558) Pbuqxciapwz0932-28-63 19:31:00* Test Item Value Reference Range Interpretation Comments Haptoglobin (test code = 4542-7) 14 mg/dL 14-258 Lab Interpretation (test code = 16273-8) Normal [facility] HospitalHAPTOGLOBIN2019-11-23 19:31:00* Test Item Value Reference [...] % 20-5 5 H Vitamin B12 and Bwcnxa3705-68-43 19:16:00* Test Item Value Reference Range Interpretation Comments Vitamin B12 (test code = 2132-9) 1988 pg/mL 213-816 H Folate (test code = 2284-8) 17.8 ng/mL >=7.0 Lab Interpretation (test code = 88550-5) Abnormal [facility] HospitalVITAMIN B12 AND [id number] 19:16:00* Test Item Value Reference Range Interpretation Comments VITAMIN B12 (BEAKER) (test code = 774) 1988 pg/mL 213-816 H FOLATE (BEAKER) (test code = 362) 17.8 ng/mL >=7.0 [id number] 19:04:00* Test Item Value Reference Range Interpretation Comments FERRITIN (BEAKER) (test code = 361) 1523 ng/mL 5-275 H Lactate dehydrogenase (LDH)2019-01-18 18:27:00* Test Item Value Reference Range Interpretation Comments LDH (test code = 2532-0) 192 U/L 125-220 Lab Interpretation (test code = 44465-5) Normal [facility] HospitalLACTATE DEHYDROGENASE (LDH)2019-01-18 18:27:00* Test Item Value Reference Range Interpretation Comments LACTATE DEHYDROGENASE (BEAKER) (test code = 635) 192 U/L 125-2 20 Hemoglobin and srncoclhxf1323-27-27 11:26:00* Test Item Value Reference Range Interpretation Comments Hemoglobin (test code = 786-4) 7.5 13.7- 17.5 GM/DL L Hematocrit (test code = 4544-3) 23.0 % 40.1-51 L Lab Interpretation (test code = 90564-2) [facility]normal [facility] [id number] 11:26:00* Test Item Value Reference Range Interpretation [...] K/CU MM L MPV (test code = 24895-6) 10.1 fL 9.4-12.4 nRBC (test code = 413) 0 0- 0 /100 WBC Lab Interpretation (test code = 58476-1) [facility]18 03:09:00* Test Item Value [...] WBC 0 -0 Alpha fetoprotein (AFP), tumor tprnvo1405-79-97 17:58:00* Test Item Value Reference Range Interpretation Comments Alpha-Fetoprotein (test code = 1834-1) 2.7 ng/mL <10.0 Lab Interpretation (test code = 88652-8) Normal [facility] HospitalALPHA FETOPROTEIN (AFP), TUMOR [id number] 17:58:00* Test Item Value Reference Range Interpretation Comments ALPHA-FETOPROTEIN (BEAKER) (test code = 1094) 2.7 ng/mL <10.0 BASIC METABOLIC [id number] 17:09:00* Test Item Value Reference Range Interpretation [...] FOR DIALYSIS PATIENTS. Specimen moderately ictericHEPATIC FUNCTION [id number] 17:08:00* Test Item Value Reference Range Interpretation [...] Specimen moderately ictericCBC W/PLT COUNT & AUTO ZCOATFOZFPRO8697-85-29 16:55:00* Test Item Value Reference Range Interpretation [...] code = 2801) 0 % 0-1 PROTHROMBIN TIME/EMS5650-03-02 16:52:00* Test Item Value Reference Range Interpretation [...] patie nts wiht mechanical heart valves.BASIC METABOLIC FNSAT2626-59-18 07:35:00* Test Item Value Reference Range Interpretation [...] NOT APPLICABLE FOR DIALYSIS PATIENTS. Specimen markedly ptkyvopJIQZTSSCE1917-35-85 07:18:00* Test Item Value Reference Range Interpretation Comments MAGNESIUM (BEAKER) (test code = 627) 2.1 mg/dL 1.6-2.6 HEPATIC FUNCTION MEUCQ1820-66-25 07:18:00* Test Item Value Reference Range Interpretation [...] 347) 16 U/L 6-55 Specimen markedly ictericPROTHROMBIN TIME/LIZ9439-91-70 06:41:00* Test Item Value Reference Range Interpretation [...] = 413) 0 /100 WBC 0 -0 SQCNXCGVJ5633-00-53 05:08:00* Test Item Value Reference Range Interpretation Comments MAGNESIUM (BEAKER) (test code = 627) 2.0 mg/dL 1.6-2.6 HEPATIC FUNCTION [id number] 05:08:00* Test Item Value Reference Range Interpretation [...] 18 U/L 6-55 Specimen markedly ictericBASIC METABOLIC YNRCV1274-42-04 05:08:00* Test Item Value Reference Range Interpretation [...] APPLICABLE FOR DIALYSIS PATIENTS. Specimen markedly ictericPROTHROMBIN TIME/JON5060-36-22 04:55:00* Test Item Value Reference Range Interpretation [...] = 413) 0 /100 WBC 0 -0 Hlikaip4996-50-98 10:14:00* Test Item Value Reference Range Interpretation Comments Ethanol Lvl (test code = 5643-2) <10 <=10 mg/dL Lab Interpretation (test code = 22251-8) Normal [facility] HospitalETHANOL2019-11-09 10:14:00* Test Item Value Reference Range Interpretation Comments ETHANOL (BEAKER) (test code = 400) < mg/dL <=10 BASIC METABOLIC [id number] 05:20:00* Test Item Value Reference Range Interpretation [...] FOR DIALYSIS PATIENTS. Specimen markedly ictericHEPATIC FUNCTION OPSSE7247-86-37 05:19:00* Test Item Value Reference Range Interpretation [...] Specimen markedly ictericCBC W/PLT COUNT & AUTO UYHVRJCXKNHW4642-46-29 05:05:00 * Test Item Value Reference Range [...] = 2801) 0 % 0-1 BASIC METABOLIC PTFSD6070-21-61 22:30:00* Test Item Value Reference Range Interpretation [...] FOR DIALYSIS PATIENTS. Specimen markedly ictericHEPATIC FUNCTION OIOKI4857-61-96 22:26:00* Test Item Value Reference Range Interpretation [...] = 347) 15 U/L 6-55 Specimen markedly ictericPT/UIKF6203-04-57 22:22:00* Test Item Value Reference Range Interpretation [...] mechanical heart valves.CBC W/PLT COUNT & AUTO OUQQZNWHRZVW6312-35-01 22:19:00* Test Item Value Reference Range Interpretation [...] code = 2801) 1 % 0-1 BLOOD YXVRPRI4919-16-22 11:00:00* Test Item Value Reference Range Interpretation Comments CULTURE (BEAKER) (test code = 1095) No growth in 5 days HEPATIC FUNCTION [id number] 09:42:00* Test Item Value Reference Range Interpretation [...] 347) 17 U/L 6-55 Specimen markedly ictericBLOOD RSQBHXL9017-97-45 08:00:00* Test Item Value Reference Range Interpretation Comments CULTURE (BEAKER) (test code = 1095) No growth in 5 days BLOOD XDKWYER5025-42-41 08:00:00* Test Item Value Reference Range Interpretation Comments CULTURE (BEAKER) (test code = 1095) No growth in 5 days BLOOD HBUTUMC3389-60-87 08:00:00* Test Item Value Reference Range Interpretation Comments CULTURE (BEAKER) (test code = 1095) No growth in 5 days FWVPMEOXVGN3423-58-36 05:03:00* Test Item Value Reference Range Interpretation Comments HAPTOGLOBIN (BEAKER) (test code = 366) < mg/dL 14-258 L BASIC METABOLIC [id number] 05:02:00* Test Item Value Reference Range Interpretation [...] NOT APPLICABLE FOR DIALYSIS PATIENTS. Specimen markedly vtaeaibEEYNXCUKVE6313-78-06 04:44:00* Test Item Value Reference Range Interpretation Comments PHOSPHORUS (BEAKER) (test code = 604) 4.4 mg/dL 2.3-4.7 MMVZVVWBW9174-02-66 04:44:00* Test Item Value Reference Range Interpretation Comments MAGNESIUM (BEAKER) (test code = 627) 2.1 mg/dL 1.6-2.6 CBC W/PLT COUNT & AUTO WHPKSABCWWSN2477-90-81 04:40:00* Test Item Value Reference Range Interpretation [...] = 2801) 0 % 0-1 Vancomycin level, zpxskz0383-88-48 04:39:00* Test Item Value Reference Range Interpretation Comments Vancomycin Rm (test code = 73200-6) 16.4 ug/mL PHILLIP (test code = PHILLIP) Reference Range: No Normals [facility] HospitalVANCOMYCIN LEVEL, [id number] 04:39:00* Test Item Value Reference Range Interpretation Comments VANCOMYCIN RANDOM (BEAKER) (test code = 523) 16.4 ug/mL Reference Range: No NormalsLACTATE DEHYDROGENASE (LDH)2018-12-25 13:28:00* Test Item Value Reference Range Interpretation Comments LACTATE DEHYDROGENASE (BEAKER) (test code = 635) 242 U/L 125-2 20 H Venous doppler legs jhozkkptj8196-40-35 12:50:27Ejection FractionSLEH ECHO HEARTLAB MKCKESSON CPACSRight Impression1. [...] 12/25/2018 12:50 PM CDTPV LAB - L [facility] Extremities DVT Study Demographics Patient Name INDRA GALVAN ate of Study 12/24/2018 YAN CORDERO 8135 Age 38 Visit Number [id number] nder Male Accession Number [id number] Date of 1980 Referring Audie Hoyt MD Room Number 7604 [facility] rosario Research Associate Molecular Biology Cb Maki S Interpreting Karen Blackwell Physician [...] in the common femoral, profundafemoral, femoral, popliteal, parking patroller ior tibial or peroneal veins.2. There is [...] in cm/s ; Diameters are measured i [facility] W/PLT COUNT & AUTO [id number] 04:43:00* Test Item Value Reference Range Interpretation [...] (test code = 2801) 0 % 0-1 ELWWWCUAPD2476-04-49 04:26:00* Test Item Value Reference Range Interpretation Comments PHOSPHORUS (BEAKER) (test code = 604) 4.7 mg/dL 2.3-4.7 [id number] 04:26:00* Test Item Value Reference Range Interpretation Comments MAGNESIUM (BEAKER) (test code = 627) 2.3 mg/dL 1.6-2.6 HEPATIC FUNCTION [id number] 04:26:00* Test Item Value Reference Range Interpretation [...] 12 U/L 6-55 Specimen markedly ictericBASIC METABOLIC [id number] 04:26:00* Test Item Value Reference Range Interpretation [...] APPLICABLE FOR DIALYSIS PATIENTS. Specimen markedly ictericPROTHROMBIN TIME/AVK7738-11-56 04:22:00* Test Item Value Reference Range Interpretation [...] patie nts wiht mechanical heart valves.BASIC METABOLIC [id number] 04:45:00* Test Item Value Reference Range Interpretation [...] NOT APPLICABLE FOR DIALYSIS PATIENTS. Specimen markedly ojzparoGZYPGHRXVP3372-40-22 04:39:00* Test Item Value Reference Range Interpretation Comments PHOSPHORUS (BEAKER) (test code = 604) 2.4 mg/dL 2.3-4.7 [id number] 04:39:00* Test Item Value Reference Range Interpretation Comments MAGNESIUM (BEAKER) (test code = 627) 2.0 mg/dL 1.6-2.6 CBC W/PLT COUNT & AUTO ESLDCQPSEWIJ8764-01-31 03:32:00* Test Item Value Reference Range Interpretation [...] code = 2801) 0 % 0-1 HEMODIALYSIS [id number] 23:25:30SawaFlakita camacho RN 12/24/2018 12:23 AMVerified informed [...] 6.77 (H) 12/23/2018 Results for INDRA GALVAN JRFredy ( ) as of 12/23/2018 23:27 Ref. Range 12/23/2018 04:01 Hepatitis B Surface Ag Latest Ref Range: Nonreactive Nonreactive [facility] (HEMOGRAM ONLY)2018-12-23 20:21:00* [...] /100 WBC 0 -0 HEPATITIS B SURFACE [id number] 05:28:00* Test Item Value Reference Range Interpretation Comments HEPATITIS B SURFACE ANTIGEN (2) (BEAKER) (test code = 2585) Nonreactive Nonreactive BASIC METABOLIC [id number] 05:28:00* Test Item Value Reference Range Interpretation [...] NOT APPLICABLE FOR DIALYSIS PATIENTS. Specimen markedly dewssqnIXDCYWFXDY8175-06-25 05:23:00* Test Item Value Reference Range Interpretation Comments PHOSPHORUS (BEAKER) (test code = 604) 3.4 mg/dL 2.3-4.7 WDSZNWBYM3071-90-66 05:23:00* Test Item Value Reference Range Interpretation Comments MAGNESIUM (BEAKER) (test code = 627) 2.1 mg/dL 1.6-2.6 VANCOMYCIN LEVEL, [id number] 05:15:00* Test Item Value Reference Range Interpretation Comments VANCOMYCIN RANDOM (BEAKER) (test code = 523) 36.4 ug/mL Reference Range: No NormalsCBC W/PLT COUNT & AUTO [id number] 04:21:00* Test Item Value Reference Range Interpretation [...] % 0-1 CT, EXTREMITY, LOWER WITHOUT CONTRAST, [id number] 03:00:00FINAL REPORT CT right lower extremity. CLINICAL [...] Signed: Richie Griffin Verified Date/Time: 12/23/2018 03:00:15 [facility] HospitalVancomycin level, swkftd9762-04-39 17:08:00* Test Item Value Reference Range Interpretation Comments Vancomycin Tr (test code = 4092-3) 40.3 ug/mL 10-20 HH Lab Interpretation (test code = 03455-8) Abnormal [facility] HospitalVANCOMYCIN LEVEL, LAXTQI8689-03-24 17:08:00* Test Item Value Reference Range Interpretation [...] 0 -0 RAD, CHEST, 1 VIEW, NON [id number] 08:35:00Reason for exam:->eval pulmonary congestionShould this be [...] Moura Verified Date/Time: 12/22/2018 08:35:05 Reading Location: [facility] C013V Neuro Reading Room Electronically signed by: OMERO MOURA M.D. on 2018 08:35 AM BASIC METABOLIC [id number] 05:18:00* Test Item Value Reference Range Interpretation [...] NOT APPLICABLE FOR DIALYSIS PATIENTS. Specimen markedly qxgcooeDCGZWWIJA6363-70-07 05:08:00* Test Item Value Reference Range Interpretation Comments MAGNESIUM (BEAKER) (test code = 627) 2.2 mg/dL 1.6-2.6 Specimen slightly hemolyzed CLQYJFCKMZ0046-66-96 05:08:00* Test Item Value Reference Range Interpretation Comments PHOSPHORUS (BEAKER) (test code = 604) 3.9 mg/dL 2.3-4.7 Specimen slightly hemolyzed LACTIC ACID, [id number] 04:40:00* Test Item Value Reference Range Interpretation Comments LACTATE BLOOD VENOUS (2) (BEAKER) (test code = 2872) 1.7 mmol/L 0 .5-2.2 Specimen slightly hemolyzed Specimen markedly pjgxgdnRzxpctxkkj3336-83-24 04:18:00* Test Item Value Reference Range Interpretation Comments Fibrinogen (test code = 3255-7) 195 mg/dl 225-434 L Lab Interpretation (test code = 12757-2) [facility]normal [facility] HospitalVlnelwBLBZEIQQTU0237-45-73 04:18:00* Test Item Value Reference Range Interpretation Comments FIBRINOGEN LEVEL (BEAKER) (test code = 658) 195 mg/dl 225-434 L CBC W/PLT COUNT & AUTO XXZQLEHZQEAQ6312-71-32 04:10:00* Test Item Value Reference Range Interpretation [...] = 2801) 1 % 0-1 HEMOGLOBIN AND AKEBSVHRSM0991-12-71 08:38:00* Test Item Value Reference Range Interpretation Comments HEMOGLOBIN (BEAKER) (test code = 410) 7.0 GM/DL 13.7-17.5 L HEMATOCRIT (BEAKER) (test code = 411) 20.7 % 40.1-51.0 L POC-Lactic Acid, Phqmwu8870-07-12 04:05:00* Test Item Value Reference Range Interpretation Comments POC-Lactic Acid, Venous (test code = 2805) 1.6 mmol/L 0.9-1.7 TESTED AT [place] [address] Lab Interpretation (test code = 69141-9) Normal [facility] HospitalPOCT-LACTIC ACID, [id number] 04:05:00* Test Item Value Reference Range Interpretation Comments POC-LACTIC ACID, VENOUS (BEAKER) (test code = 2805) 1.6 mmol/L 0. 9-1.7 TESTED AT [address] [address] [id number] 03:40:00* Test Item Value Reference Range Interpretation Comments PROCALCITONIN (BEAKER) (test code = 3036) 1.26 ng/mL <0.05 H SEPSIS RISK (ng/mL)Low: 0.05-0.50Intermediate: 0.51-2.00High: > =2.15Wegrtzb7187-49-49 03:37:00* Test Item Value Reference Range Interpretation Comments Ammonia (test code = 90779-8) 65 18- 72 mol/L Lab Interpretation (test code = 39535-7) Normal [facility] HospitalONIA2019-10-26 03:37:00* Test Item Value Reference Range Interpretation Comments AMMONIA (BEAKER) (test code = 348) 65 mol/L 18-72 PT/[id number] 02:35:00* Test Item Value Reference Range Interpretation [...] patie nts wiht mechanical heart valves.COMPREHENSIVE METABOLIC ZBTFN9762-92-41 02:26:00* Test Item Value Reference Range Interpretation [...] APPLICABLE FOR DIALYSIS PATIENTS. Specimen markedly ictericTROPONIN [id number] 02:24:00* Test Item Value Reference Range Interpretation [...] acidosis, acute neurological disease, and per sistent tachyarrhythmia.GELMUUFFJ7437-42-74 02:21:00* Test Item Value Reference Range Interpretation Comments MAGNESIUM (BEAKER) (test code = 627) 2.1 mg/dL 1.6-2.6 Specimen slightly hemolyzed POCT-LACTIC ACID, [id number] 02:17:00* Test Item Value Reference Range Interpretation Comments POC-LACTIC ACID, VENOUS (BEAKER) (test code = 2805) 4.0 mmol/L 0. 9-1.7 H TESTED AT [facility] [address] [facility] [address] CBC W/PLT COUNT & AUTO QISPGRIDHXED9983-28-85 02:09:00* Test Item Value Reference Range Interpretation [...] % 0-1 RAD, CHEST, 1 VIEW, NON [id number] 01:50:00Reason for exam:->chest painShould this be performed [...] 12/21/2018 01:50:02 , KNEE, COMPLETE (4 VIEWS), [id number] 01:49:00Reason for exam:->LACERATIONFINAL REPORT CLINICAL HISTORY: Trauma [...] Date/Time: 12/21/2018 01:49:02 knee complete 4 views [id number] 01:49:00Interface, External Ris In - 12/21/2018 1:51 [...] Signed: Katherine Reich Verified Date/Time: 12/21/2018 01:49:02 [facility] 01[facility]10:14HaVíctor webster MD 12/24/2018 4:23 [...] patient's condition and review of old charts. [facility]MIS[facility] [id number] 07:44:00* Test Item Value Reference Range Interpretation Comments SCAN RESULT (test code = 7153021) CBC W/PLT COUNT & AUTO FVZOETULHJZB9096-68-27 15:07:00* Test Item Value Reference Range Interpretation [...] (BEAKER) (test code = 961) 2+ moderate GILLES CELLS (BEAKER) (test code = 474) 2+ moderate POIKILOCYTES (BEAKER) (test code = 966) 1+ few PPOPJVIXVS1680-66-59 14:49:00* Test Item Value Reference Range Interpretation Comments PHOSPHORUS ([facility]) (test code = 604) 2.4 mg/dL 2.3-4.7 ANG, TUNNELED CATHETER ZDUXMKMJV7508-21-86 10:01:00Reason for exam:->please place tunnelled hd cath for patient on dialysisReason for exam:->patient will need ffp receiving distribution station operator to procedure due to high inr [...] the patient's medical record by the nurse. Manager Performance: Regis Ortega MD. Leacher: None. Approach: Right internal jugular vein Estimated [...] by blunt dissection. A 19 cm right Algerian Duraflow 2 catheter was brought through the [...] MDReport Verified Date/Time: 11/15/2018 10:01:43 Reading Location: [facility] B1 P04 8 Angio Body Reading Room TIC FUNCTION [id number] 07:46:00* Test Item Value Reference Range Interpretation [...] 46 U/L 6-55 Specimen markedly ictericBASIC METABOLIC [id number] 07:46:00* Test Item Value Reference Range Interpretation [...] Specimen markedly ictericCBC W/PLT COUNT & AUTO AJSFRAHNQOPZ7993-49-48 06:23:00 * Test Item Value Reference Range [...] = 2801) 2 % 0-1 H PROTHROMBIN TIME/[id number] 06:20:00* Test Item Value Reference Range Interpretation [...] for patie nts wiht mechanical heart valves.BLOOD JDTSPGI5302-66-48 02:01:00* Test Item Value Reference Range Interpretation Comments CULTURE (BEAKER) (test code = 1095) No growth in 5 days BLOOD PSHTBCG5420-34-48 02:01:00* Test Item Value Reference Range Interpretation Comments CULTURE (BEAKER) (test code = 1095) No growth in 5 days HEPATIC FUNCTION [id number] 08:23:00* Test Item Value Reference Range Interpretation [...] U/L 6-55 H Specimen markedly ictericBASIC METABOLIC CCGDP9712-90-04 08:15:00* Test Item Value Reference Range Interpretation [...] APPLICABLE FOR DIALYSIS PATIENTS. Specimen markedly ictericPROTHROMBIN TIME/AVT3307-47-24 05:54:00* Test Item Value Reference Range Interpretation [...] mechanical heart valves.CBC W/PLT COUNT & AUTO DAITMSDRPRAE8269-63-30 05:45:00* Test Item Value Reference Range Interpretation [...] = 2801) 2 % 0-1 H TISSUE [id number] 14:34:00Surgical Pathology Report Case: [id number] Authorizing Provider: Devyn Lantigua MD Collected: 11/10/2018 1325 Ordering Location: [address] Received: 11/11/2018 0818 Service Pathologist: Be [...] TO FOLLOW. Signing Pathologist Direct Phone Line: [phone] signed by Be Arenas MD on 11/12/2018 [...] is no morphologic or immunophenotypic evidence of lymphoma.88400o4, 32202, 8834 9i4Immko polyps A. Sigmoid polyp biopsy. B. Cecum [...] HSV1, HSV2, CMV, CD20, CD3, CD5, CYCLIN U0Aktusmv Slides Examined: In-house known positive controls were evaluated along with the test tissue. These control slides run a longside of the patients sample show appropriate staining. Internal positive and negative controls when available are evaluated Immunohistochemistry technical t esting was performed at [facility], Pathology Laboratory w here it was [...] to perform high complexity clinical lab oratory testing.[id number] 08:34:00* Test Item Value Reference Range Interpretation Comments PHOSPHORUS (BEAKER) (test code = 604) 2.3 mg/dL 2.3-4.7 HEMOGLOBIN AND VOGRTHPVJH3985-26-30 08:03:00* Test Item Value Reference Range Interpretation Comments HEMOGLOBIN (BEAKER) (test code = 410) 6.4 GM/DL 13.7-17.5 L HEMATOCRIT (BEAKER) (test code = 411) 19.1 % 40.1-51.0 L BASIC METABOLIC [id number] 06:42:00* Test Item Value Reference Range Interpretation [...] FOR DIALYSIS PATIENTS. Specimen markedly ictericHEPATIC FUNCTION ASVHJ1526-45-01 06:41:00* Test Item Value Reference Range Interpretation [...] Specimen markedly ictericCBC W/PLT COUNT & AUTO OYBZTCZBEERE5773-31-42 06:36:00 * Test Item Value Reference Range [...] code = 2801) 1 % 0-1 PROTHROMBIN TIME/IDJ3686-69-67 06:29:00* Test Item Value Reference Range Interpretation [...] nts wiht mechanical heart valves.RAD, CHEST, 2 LJZYC2677-07-08 23:58:00Reason for exam:->coughFINAL REPORT Chest, two views. [...] MDReport Verified Date/Time: 11/12/2018 23:58:30 Reading Location: [facility] C013W Consult Reading Room TIC FUNCTION [id number] 04:58:00* Test Item Value Reference Range Interpretation [...] U/L 6-55 H Specimen markedly ictericBASIC METABOLIC [id number] 04:50:00* Test Item Value Reference Range Interpretation [...] Specimen markedly ictericCBC W/PLT COUNT & AUTO BMVBUMMNRYVP1200-11-87 04:33:00 * Test Item Value Reference Range [...] code = 2801) 1 % 0-1 PROTHROMBIN TIME/SUR9035-14-31 04:25:00* Test Item Value Reference Range Interpretation [...] patie nts wiht mechanical heart valves.CREATININE, RANDOM [id number] 03:53:00* Test Item Value Reference Range Interpretation Comments CREATININE URINE (BEAKER) (test code = 375) 225.8 mg/dL Reference Range: No NormalsPROTEIN, RANDOM [id number] 03:50:00* Test Item Value Reference Range Interpretation Comments PROTEIN, URINE (BEAKER) (test code = 1569) 122 mg/dL 0-14 H CBC W/PLT COUNT & AUTO SHYWPIZHRCUK7392-25-64 08:10:00* Test Item Value Reference Range Interpretation [...] (BEAKER) (test code = 966) 2+ moderate GILLES CELLS (BEAKER) (test code = 474) 1+ [...] U/L 6-55 H Specimen markedly ictericBASIC METABOLIC [id number] 06:17:00* Test Item Value Reference Range Interpretation [...] APPLICABLE FOR DIALYSIS PATIENTS. Specimen markedly ictericPROTHROMBIN TIME/[id number] 05:07:00* Test Item Value Reference Range Interpretation [...] patie nts wiht mechanical heart valves.HEPATIC FUNCTION [id number] 06:03:00* Test Item Value Reference Range Interpretation [...] U/L 6-55 H Specimen markedly ictericBASIC METABOLIC [id number] 05:52:00* Test Item Value Reference Range Interpretation [...] Specimen markedly ictericCBC W/PLT COUNT & AUTO [id number] 05:17:00 * Test Item Value Reference Range [...] code = 2801) 1 % 0-1 PROTHROMBIN TIME/[id number] 05:07:00* Test Item Value Reference Range Interpretation [...] for patie nts wiht mechanical heart valves.BLOOD [id number] 02:01:00* Test Item Value Reference Range Interpretation Comments CULTURE (BEAKER) (test code = 1095) No growth in 5 days BLOOD [id number] 02:01:00* Test Item Value Reference Range Interpretation Comments CULTURE (BEAKER) (test code = 1095) No growth in 5 days URINALYSIS W/ REFLEX URINE [id number] 00:30:00* Test Item Value Reference Range Interpretation [...] 42 /LPF SOURCE(BEAKER) (test code = 2795) [id number] 11:29:00* Test Item Value Reference Range Interpretation Comments PHOSPHORUS (BEAKER) (test code = 604) 2.3 mg/dL 2.3-4.7 HEPATIC FUNCTION [id number] 04:57:00* Test Item Value Reference Range Interpretation [...] Specimen markedly ictericCBC W/PLT COUNT & AUTO [id number] 04:42:00 * Test Item Value Reference Range [...] 2801) 2 % 0-1 H BASIC METABOLIC [id number] 04:41:00* Test Item Value Reference Range Interpretation [...] APPLICABLE FOR DIALYSIS PATIENTS. Specimen markedly ictericPROTHROMBIN TIME/[id number] 04:34:00* Test Item Value Reference Range Interpretation [...] patie nts wiht mechanical heart valves.HEPATIC FUNCTION [id number] 17:22:00* Test Item Value Reference Range Interpretation [...] U/L 6-55 H Specimen markedly icteric; notified #[id number] of correctionCANDIDA ANTIGEN WITH REFLEX TO [id number] 11:29:00* Test Item Value Reference Range Interpretation Comments YARI ANTIGEN (BEAKER) (test code = 1782) Positive YARI ANTIGEN [id number] 11:29:00* Test Item Value Reference Range Interpretation Comments YARI ANTIGEN TITER (BEAKER) (test code = 737) :2 CT, CHEST, WITH HIGH RESOLUTION, INTERSTITAL LUNG [id number] 11:29:00 Reason for exam:->liver transplant evaluationFINAL REPORT [...] MDReport Verified Date/Time: 11/08/2018 11:29:31 Reading Location: [address] Ortho Consult Reading Room , ABDOMEN, [id number] 08:24:00FINAL REPORT MRI of the abdomen. CLINICAL [...] rt Verified Date/Time: 11/08/2018 08:24:53 Reading Location: [facility] Reading Room - [place] [address] E [id number] 07:36:00* Test Item Value Reference Range Interpretation Comments CULTURE (BEAKER) (test code = 1095) No growth BASIC METABOLIC [id number] 06:13:00* Test Item Value Reference Range Interpretation [...] NOT APPLICABLE FOR DIALYSIS PATIENTS. Specimen markedly [id number] 06:07:00* Test Item Value Reference Range Interpretation Comments PHOSPHORUS (BEAKER) (test code = 604) 2.8 mg/dL 2.3-4.7 [id number] 06:07:00* Test Item Value Reference Range Interpretation Comments MAGNESIUM (BEAKER) (test code = 627) 2.2 mg/dL 1.6-2.6 PROTHROMBIN TIME/[id number] 05:21:00* Test Item Value Reference Range Interpretation [...] mechanical heart valves.CBC W/PLT COUNT & AUTO [id number] 05:03:00* Test Item Value Reference Range Interpretation [...] % 0-1 CBC W/PLT COUNT & AUTO [id number] 13:51:00* Test Item Value Reference Range Interpretation [...] (BEAKER) (test code = 481) 1+ few GILLES CELLS (BEAKER) (test code = 474) 2+ moderate ARTIFACT (CELLAVISION)(BEAKER) (test code = 3432) Present PLATELET CONCENTRATION (CELLAVISION)(BEAKER) (test code = 3438) Dec reased Received comment: User comments: Slide comments: WBC: SEEGMENTED WIT TOXIC GRANU LATIONS PRESENT BASIC METABOLIC [id number] 07:53:00* Test Item Value Reference Range Interpretation [...] FOR DIALYSIS PATIENTS. Specimen markedly ictericHEPATIC FUNCTION [id number] 07:53:00* Test Item Value Reference Range Interpretation [...] 80 U/L 6-55 H Specimen markedly ictericPROTHROMBIN TIME/[id number] 07:12:00* Test Item Value Reference Range Interpretation [...] mechanical heart valves.CBC W/PLT COUNT & AUTO [id number] 08:15:00* Test Item Value Reference Range Interpretation [...] (BEAKER) (test code = 966) 2+ moderate GILLES CELLS (BEAKER) (test code = 474) 2+ [...] U/L 6-55 H Specimen markedly ictericBASIC METABOLIC [id number] 04:58:00* Test Item Value Reference Range Interpretation [...] APPLICABLE FOR DIALYSIS PATIENTS. Specimen markedly ictericPROTHROMBIN TIME/[id number] 04:37:00* Test Item Value Reference Range Interpretation [...] patie nts wiht mechanical heart valves.URINALYSIS W/ [id number] 22:58:00* Test Item Value Reference Range Interpretation [...] 517) Occasional MUCUS (BEAKER) (test code = 3284) Rare SOURCE(BEAKER) (test code = 2795) Urine, Clean Catch HEPATITIS B SURFACE [id number] 20:23:00* Test Item Value Reference Range Interpretation Comments HEPATITIS B SURFACE ANTIBODY (BEAKER) (test code = 647) < mIU/mL <8.0 HEPATITIS B SURFACE [id number] 20:22:00* Test Item Value Reference Range Interpretation Comments HEPATITIS B SURFACE ANTIGEN (2) (BEAKER) (test code = 2585) Nonreactive Nonreactive HEPATITIS B CORE ANTIBODY, [id number] 20:22:00* Test Item Value Reference Range Interpretation Comments HEPATITIS B CORE TOTAL ANTIBODY (GAURAVAKER) (test code = 497) N onreactive Nonreactive RAD, CHEST, 1 VIEW, NON [id number] 20:17:00Reason for exam:->pleuritic chest painShould this be [...] Date/Time: 11/05/2018 20:17:29 , NON-TUNNELED DIALYSIS CATH, [id number] 19:49:00Reason for exam:->need dialysisFINAL REPORT PROCEDURE: Non-tunneled [...] site was prepared and draped using all kenaitze ents of maximal sterile barrier technique including [...] was applied.Catheter placed: Schon XLCathete r size (Algerian): 14Catheter length (cm): 15Catheter flush: Heparin (1000 [...] Verified Date/Fernando e: 11/05/2018 19:49:40 Reading Location: [facility] [address] [facility] Body Reading Room W/PLT COUNT & AUTO [id number] 10:46:00* Test Item Value Reference Range Interpretation [...] (BEAKER) (test code = 481) 1+ few GILLES CELLS (BEAKER) (test code = 474) 3+ many ARTIFACT (CELLAVISION)(BEAKER) (test code = 3432) Present HELMET CELLS (CELLAVISION)(BEAKER) (test code = 3434) 1+ few PLATELET CONCENTRATION (CELLAVISION)(BEAKER) (test code = 3438) Cheryl quate Received comment: User comments: Slide comments: BASIC METABOLIC [id number] 06:48:00* Test Item Value Reference Range Interpretation [...] FOR DIALYSIS PATIENTS. Specimen markedly ictericHEPATIC FUNCTION [id number] 06:48:00* Test Item Value Reference Range Interpretation [...] 347) 82 U/L 6-55 H Specimen markedly tyoyrdjHVZWVPUWJP4650-36-89 06:44:00* Test Item Value Reference Range Interpretation Comments PHOSPHORUS (BEAKER) (test code = 604) 3.7 mg/dL 2.3-4.7 [id number] 06:44:00* Test Item Value Reference Range Interpretation Comments MAGNESIUM (BEAKER) (test code = 627) 2.5 mg/dL 1.6-2.6 [id number] 05:49:00* Test Item Value Reference Range Interpretation [...] for patie nts wiht mechanical heart valves.PROTHROMBIN TIME/[id number] 05:48:00* Test Item Value Reference Range Interpretation [...] Target INR is 2.5-3.5 for patie nts [facility] mechanical heart valves.URINALYSIS W/ REFLEX URINE [id number] 20:41:00* Test Item Value Reference Range Interpretation [...] 1574) Rare SOURCE(BEAKER) (test code = 2795) [id number] 14:10:00* Test Item Value Reference Range Interpretation Comments AMMONIA (BEAKER) (test code = 348) 101 mol/L 18-72 H CBC W/PLT COUNT & AUTO [id number] 10:57:00* Test Item Value Reference Range Interpretation [...] (BEAKER) (test code = 477) 1+ few GILLES CELLS (BEAKER) (test code = 474) 1+ few [id number] 10:35:00* Test Item Value Reference Range Interpretation Comments MAGNESIUM (BEAKER) (test code = 627) 2.4 mg/dL 1.6-2.6 HEPATIC FUNCTION [id number] 05:15:00* Test Item Value Reference Range Interpretation [...] U/L 6-55 H Specimen markedly ictericBASIC METABOLIC [id number] 05:14:00* Test Item Value Reference Range Interpretation [...] APPLICABLE FOR DIALYSIS PATIENTS. Specimen markedly ictericPROTHROMBIN TIME/[id number] 04:51:00* Test Item Value Reference Range Interpretation [...] patie nts wiht mechanical heart valves.HEPATIC FUNCTION [id number] 06:30:00* Test Item Value Reference Range Interpretation [...] 52 U/L 6-55 Specimen markedly ictericBASIC METABOLIC [id number] 06:30:00* Test Item Value Reference Range Interpretation [...] APPLICABLE FOR DIALYSIS PATIENTS. Specimen markedly ictericPROTHROMBIN TIME/[id number] 05:42:00* Test Item Value Reference Range Interpretation [...] mechanical heart valves.CBC W/PLT COUNT & AUTO [id number] 05:10:00* Test Item Value Reference Range Interpretation [...] = 2801) 1 % 0-1 BASIC METABOLIC [id number] 07:07:00* Test Item Value Reference Range Interpretation [...] FOR DIALYSIS PATIENTS. Specimen markedly ictericHEPATIC FUNCTION [id number] 07:06:00* Test Item Value Reference Range Interpretation [...] 347) 49 U/L 6-55 Specimen markedly ictericPROTHROMBIN TIME/[id number] 06:21:00* Test Item Value Reference Range Interpretation [...] mechanical heart valves.CBC W/PLT COUNT & AUTO [id number] 06:04:00* Test Item Value Reference Range Interpretation [...] code = 2801) 1 % 0-1 BLOOD [id number] 20:01:00* Test Item Value Reference Range Interpretation Comments CULTURE (BEAKER) (test code = 1095) No growth in 5 days BLOOD [id number] 20:01:00* Test Item Value Reference Range Interpretation Comments CULTURE (BEAKER) (test code = 1095) No growth in 5 days BASIC METABOLIC [id number] 08:05:00* Test Item Value Reference Range Interpretation [...] FOR DIALYSIS PATIENTS. Specimen markedly ictericHEPATIC FUNCTION [id number] 08:04:00* Test Item Value Reference Range Interpretation [...] 347) 37 U/L 6-55 Specimen markedly ictericPROTHROMBIN TIME/[id number] 06:14:00* Test Item Value Reference Range Interpretation [...] mechanical heart valves.CBC W/PLT COUNT & AUTO [id number] 06:13:00* Test Item Value Reference Range Interpretation [...] = 2801) 1 % 0-1 HEPATIC FUNCTION [id number] 06:59:00* Test Item Value Reference Range Interpretation [...] 35 U/L 6-55 Specimen markedly ictericBASIC METABOLIC [id number] 06:56:00* Test Item Value Reference Range Interpretation [...] Specimen markedly ictericCBC W/PLT COUNT & AUTO [id number] 05:54:00 * Test Item Value Reference Range [...] code = 2801) 1 % 0-1 PROTHROMBIN TIME/[id number] 05:46:00* Test Item Value Reference Range Interpretation [...] patie nts wiht mechanical heart valves.SODIUM, RANDOM [id number] 23:21:00* Test Item Value Reference Range Interpretation Comments SODIUM URINE (BEAKER) (test code = 243) 34 meq/L Reference Range: No NormalsBODY FLUID CULTURE + GRAM [id number] 10:20:00* Test Item Value Reference Range Interpretation Comments CULTURE (BEAKER) (test code = 1095) No growth GRAM STAIN RESULT (BEAKER) (test code = 1123) <1+ White blood cells seen GRAM STAIN RESULT (BEAKER) (test code = 58199) No organisms seen HEPATIC FUNCTION [id number] 05:14:00* Test Item Value Reference Range Interpretation [...] 33 U/L 6-55 Specimen markedly ictericBASIC METABOLIC [id number] 05:13:00* Test Item Value Reference Range Interpretation [...] Specimen markedly ictericCBC W/PLT COUNT & AUTO [id number] 04:24:00 * Test Item Value Reference Range [...] = 2801) 2 % 0-1 H PROTHROMBIN TIME/[id number] 04:21:00* Test Item Value Reference Range Interpretation [...] patie nts wiht mechanical heart valves.MISCELLANEOUS LAB [id number] 11:32:00* Test Item Value Reference Range Interpretation Comments SCAN RESULT (test code = 1579495) CBC W/PLT COUNT & AUTO [id number] 09:11:00* Test Item Value Reference Range Interpretation [...] (BEAKER) (test code = 481) 1+ few GILLES CELLS (BEAKER) (test code = 474) 1+ few BASOPHILIC STIPPLING (BEAKER) (test code = 473) Present ARTIFACT (CELLAVISION)(BEAKER) (test code = 3432) Present PLATELET CONCENTRATION (CELLAVISION)(BEAKER) (test code = 3438) Cheryl quate Received comment: User comments: Slide comments: BASIC METABOLIC [id number] 05:26:00* Test Item Value Reference Range Interpretation [...] FOR DIALYSIS PATIENTS. Specimen markedly ictericHEPATIC FUNCTION [id number] 05:26:00* Test Item Value Reference Range Interpretation [...] 347) 32 U/L 6-55 Specimen markedly ictericPROTHROMBIN TIME/[id number] 04:51:00* Test Item Value Reference Range Interpretation [...] patie nts wiht mechanical heart valves.HEPATIC FUNCTION [id number] 05:37:00* Test Item Value Reference Range Interpretation [...] 28 U/L 6-55 Specimen markedly ictericBASIC METABOLIC [id number] 05:37:00* Test Item Value Reference Range Interpretation [...] Specimen markedly ictericCBC W/PLT COUNT & AUTO [id number] 04:10:00 * Test Item Value Reference Range [...] = 2801) 2 % 0-1 H PROTHROMBIN TIME/[id number] 04:07:00* Test Item Value Reference Range Interpretation [...] for patie nts wiht mechanical heart valves.BLOOD [id number] 20:01:00* Test Item Value Reference Range Interpretation Comments CULTURE (BEAKER) (test code = 1095) No growth in 5 days BLOOD [id number] 20:01:00* Test Item Value Reference Range Interpretation Comments CULTURE (BEAKER) (test code = 1095) No growth in 5 days U/S, [id number] 16:58:00Worsening leukocytosis, to rule out SBP. Please do not remove >3 LReason for exam:->ascites, rule out SBPFINAL REPORT Paracentesis dated 10/27/2018 Procedure: Ultrasound-guided paracentesis. Preprocedure diagnosis: Ascites Postprocedure diagnosis: Ascites Conscious sedation: None. Radiologist: Keith Garcia M.D. Leacher: None Anesthesia: 1% Xylocaine mixed with sodium bicarbonate local anesthesia. Te chnique: After obtaining informed consent, ultrasound-guided paracentesis was p erformed under usual sterile technique. Using a 5 rwandan drainage catheter, punc ture was made in the right lower quadrant abdomen. Approximately 2000 cc of mayra r yellowish fluid was removed. Patient tolerated the procedure well without comp lication. Complication: None Graft/Implant: None Estimated Blood Loss: None Impr ession: Ultrasound-guided paracentesis. Signed: Keith Garcia MDReport Verified Da te/Time: 10/27/2018 16:58:17 Reading Location: [address] Body Reading [facility] FLUID CELL COUNT WITH [id number] 16:24:00* Test Item Value Reference Range Interpretation [...] code = 2873) EDTA Tube LACTIC ACID, [id number] 13:51:00* Test Item Value Reference Range Interpretation Comments LACTATE BLOOD VENOUS (2) (BEAKER) (test code = 2872) 0.8 mmol/L 0 .5-2.2 Sepsis screeningSpecimen markedly ictericBASIC METABOLIC [id number] 05:53:00* Test Item Value Reference Range Interpretation [...] FOR DIALYSIS PATIENTS. Specimen markedly ictericHEPATIC FUNCTION [id number] 05:51:00* Test Item Value Reference Range Interpretation [...] 347) 30 U/L 6-55 Specimen markedly ictericPROTHROMBIN TIME/[id number] 05:07:00* Test Item Value Reference Range Interpretation [...] mechanical heart valves.CBC W/PLT COUNT & AUTO [id number] 04:52:00* Test Item Value Reference Range Interpretation [...] 2801) 2 % 0-1 H U/S, ABDOMINAL, [id number] 13:11:00Abdomen limited area? Add comment if clarification [...] MDReport Verified Date/Time: 10/26/2018 13:11:32 Reading Location: [address] Reading Room C METABOLIC [id number] 08:13:00* Test Item Value Reference Range Interpretation [...] FOR DIALYSIS PATIENTS. Specimen markedly ictericHEPATIC FUNCTION [id number] 08:13:00* Test Item Value Reference Range Interpretation [...] Specimen markedly ictericCBC W/PLT COUNT & AUTO [id number] 05:46:00 * Test Item Value Reference Range [...] = 2801) 2 % 0-1 H PROTHROMBIN TIME/[id number] 05:43:00* Test Item Value Reference Range Interpretation [...] for patie nts wiht mechanical heart valves.TISSUE [id number] 18:03:00Surgical Pathology Report Case: [id number] Authorizing Provider: Shy Parisi MD Collected: 10/19/2018 0856 Ordering Location: [address] Received: 10/21/2018 0830 Service Pathologist: Jefferson Martin MD Specimens: A) - Large Intestine, Colon - Cecum, HEALING ULCER BX B) - Polyp, Colon - Right/Ascending, TAKEN BY FRCP Given the 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 CPT: 72568; 75327 x 4Addendum electronica lly signed by Samina Arteaga MD on 10/25/2018 at 6:03 PMA. COLON, CECUM , HEALING ULCER, BIOPSY: - COLONIC MUCOSA WITH GRANULATION TISSUE, COMPATIBL E WITH HEALING ULCER - NEGATIVE FOR DYSPLASIA OR CARCINOMA (SEE COMMENT)B. C OLON, ASCENDING, POLYPECTOMY: - TUBULAR ADENOMA Signing Pathologist Dir ect Phone Line: [phone] signed by Jefferson Martin MD on 9 at 7:56 PMA. No dense lymphoid infiltrates are seen in the current biopsy. He matopathology consultation will be issued in an addendum.72149 X 2Pre and postop diagnosis: gastrointestinal hemorrhage, [...] in toto in B1. CG/pl Performed.HEPATIC FUNCTION [id number] 04:53:00* Test Item Value Reference Range Interpretation [...] 35 U/L 6-55 Specimen markedly ictericBASIC METABOLIC [id number] 04:53:00* Test Item Value Reference Range Interpretation [...] APPLICABLE FOR DIALYSIS PATIENTS. Specimen markedly ictericPROTHROMBIN TIME/[id number] 04:27:00* Test Item Value Reference Range Interpretation [...] mechanical heart valves.CBC W/PLT COUNT & AUTO [id number] 04:13:00* Test Item Value Reference Range Interpretation [...] 2801) 2 % 0-1 H BASIC METABOLIC [id number] 05:54:00* Test Item Value Reference Range Interpretation [...] FOR DIALYSIS PATIENTS. Specimen markedly ictericHEPATIC FUNCTION [id number] 05:54:00* Test Item Value Reference Range Interpretation [...] = 347) 31 U/L 6-55 Specimen markedly btebgkvSHPPIGUFCD3909-45-36 05:53:00* Test Item Value Reference Range Interpretation Comments PHOSPHORUS (BEAKER) (test code = 604) 2.0 mg/dL 2.3-4.7 L [id number] 05:53:00* Test Item Value Reference Range Interpretation Comments MAGNESIUM (BEAKER) (test code = 627) 2.2 mg/dL 1.6-2.6 CBC W/PLT COUNT & AUTO [id number] 05:27:00* Test Item Value Reference Range Interpretation [...] = 2801) 2 % 0-1 H PROTHROMBIN TIME/[id number] 05:27:00* Test Item Value Reference Range Interpretation [...] patie nts wiht mechanical heart valves.BASIC METABOLIC [id number] 11:14:00* Test Item Value Reference Range Interpretation [...] FOR DIALYSIS PATIENTS. ADD-ONSpecimen markedly ictericMISCELLANEOUS LAB [id number] 07:36:00* Test Item Value Reference Range Interpretation Comments SCAN RESULT (test code = 4572622) HEPATIC FUNCTION [id number] 05:32:00* Test Item Value Reference Range Interpretation [...] = 347) 33 U/L 6-55 Specimen markedly vyauidzSKKAOGDIXG4304-00-93 05:21:00* Test Item Value Reference Range Interpretation Comments PHOSPHORUS (BEAKER) (test code = 604) 2.2 mg/dL 2.3-4.7 L [id number] 05:21:00* Test Item Value Reference Range Interpretation Comments MAGNESIUM (BEAKER) (test code = 627) 2.2 mg/dL 1.6-2.6 PROTHROMBIN TIME/[id number] 05:00:00* Test Item Value Reference Range Interpretation [...] mechanical heart valves.CBC W/PLT COUNT & AUTO [id number] 04:51:00* Test Item Value Reference Range Interpretation [...] = 2801) 2 % 0-1 H BLOOD [id number] 20:01:00* Test Item Value Reference Range Interpretation Comments CULTURE (BEAKER) (test code = 1095) No growth in 5 days BLOOD [id number] 20:01:00* Test Item Value Reference Range Interpretation Comments CULTURE (BEAKER) (test code = 1095) No growth in 5 days URINALYSIS W/ REFLEX URINE [id number] 17:08:00* Test Item Value Reference Range Interpretation [...] SOURCE(BEAKER) (test code = 2795) BASIC METABOLIC [id number] 10:18:00* Test Item Value Reference Range Interpretation [...] Specimen markedly ictericCBC W/PLT COUNT & AUTO [id number] 09:06:00 * Test Item Value Reference Range [...] BANDS - ABS (CELLAVISION)(BEAKER) (test code = 8800) 0.15 K/uL 0 .00-0.80 ATYPICAL LYMPHOCYTES - ABS (CELLAVISION)(BEAKER) (test code = 4144) 0.30 K/uL 0.00-0.00 H TOTAL COUNTED (BEAKER) (test code = 1351) 100 SMUDGE CELLS (BEAKER) (test code = 1371) Present GIANT PLATELETS (BEAKER) (test code = 313) Present POLYCHROMATOPHILLIC RBCS(BEAKER) (test code = 478) 1+ few ANISOCYTOSIS (BEAKER) (test code = 961) 2+ moderate POIKILOCYTES (BEAKER) (test code = 966) 1+ few GILLES CELLS (BEAKER) (test code = 474) 2+ [...] 347) 37 U/L 6-55 Specimen markedly ictericPROTHROMBIN TIME/[id number] 06:10:00* Test Item Value Reference Range Interpretation [...] PERIPHERAL SMR REVIEW (BEAKER) (test code = 9120) Cell counts myke rojased. QEBC-[id number] (BEAKER) (test code = 2849) Colleen Arteaga [...] Slide comments: CBC W/PLT COUNT & AUTO [id number] 09:56:00* Test Item Value Reference Range Interpretation [...] 0 /100 WBC 0 -0 BASIC METABOLIC [id number] 09:01:00* Test Item Value Reference Range Interpretation [...] DIALYSIS PATIENTS. Specimen markedly ictericVITAMIN B12 AND [id number] 08:56:00* Test Item Value Reference Range Interpretation Comments VITAMIN B12 (BEAKER) (test code = 774) > pg/mL 213-816 H FOLATE (BEAKER) (test code = 362) 15.2 ng/mL >=7.0 RETICULOCYTE [id number] 06:56:00* Test Item Value Reference Range Interpretation Comments RETICULOCYTE COUNT PCT (BEAKER) (test code = 575) 8.0 % 0.5- 1.8 H HEPATIC FUNCTION [id number] 06:35:00* Test Item Value Reference Range Interpretation [...] = 347) 34 U/L 6-55 Specimen markedly ajwxsdkTRXDUYPOOEK3873-13-30 06:12:00* Test Item Value Reference Range Interpretation Comments HAPTOGLOBIN (BEAKER) (test code = 366) 67 mg/dL 14-258 PROTHROMBIN TIME/[id number] 05:26:00* Test Item Value Reference Range Interpretation [...] 452 U/L 125-2 20 H BASIC METABOLIC [id number] 07:58:00* Test Item Value Reference Range Interpretation [...] FOR DIALYSIS PATIENTS. Specimen markedly ictericHEPATIC FUNCTION [id number] 07:38:00* Test Item Value Reference Range Interpretation [...] = 347) 26 U/L 6-55 Specimen markedly zeriimhPDWUTHKFV5765-81-88 07:36:00* Test Item Value Reference Range Interpretation Comments MAGNESIUM (BEAKER) (test code = 627) 2.2 mg/dL 1.6-2.6 [id number] 07:36:00* Test Item Value Reference Range Interpretation Comments PHOSPHORUS (BEAKER) (test code = 604) 2.8 mg/dL 2.3-4.7 CBC W/PLT COUNT & AUTO [id number] 06:58:00* Test Item Value Reference Range Interpretation [...] = 2801) 2 % 0-1 H PROTHROMBIN TIME/[id number] 06:50:00* Test Item Value Reference Range Interpretation [...] mechanical heart valves.CBC W/PLT COUNT & AUTO [id number] 22:22:00* Test Item Value Reference Range Interpretation [...] 0 -0 CBC W/PLT COUNT & AUTO [id number] 16:47:00* Test Item Value Reference Range Interpretation [...] 0 -0 CBC W/PLT COUNT & AUTO [id number] 09:23:00* Test Item Value Reference Range Interpretation [...] = 347) 20 U/L 6-55 Specimen markedly auyhexnZVNKPGMFV9841-25-21 05:23:00* Test Item Value Reference Range Interpretation Comments MAGNESIUM (BEAKER) (test code = 627) 2.2 mg/dL 1.6-2.6 BASIC METABOLIC [id number] 05:23:00* Test Item Value Reference Range Interpretation [...] NOT APPLICABLE FOR DIALYSIS PATIENTS. Specimen markedly rlgpndjYKJLDWOXOK5963-12-26 05:23:00* Test Item Value Reference Range Interpretation Comments PHOSPHORUS (BEAKER) (test code = 604) 1.6 mg/dL 2.3-4.7 L PROTHROMBIN TIME/[id number] 04:53:00* Test Item Value Reference Range Interpretation [...] pat ients with mechanical heart valves.CREATININE, RANDOM [id number] 02:02:00* Test Item Value Reference Range Interpretation Comments CREATININE URINE (BEAKER) (test code = 375) 44.3 mg/dL Reference Range: No NormalsSODIUM, RANDOM [id number] 02:02:00* Test Item Value Reference Range Interpretation Comments SODIUM URINE (BEAKER) (test code = 243) 93 meq/L Reference Range: No NormalsUREA NITROGEN, RANDOM [id number] 02:02:00* Test Item Value Reference Range Interpretation Comments UREA NITROGEN URINE (BEAKER) (test code = 538) 120 mg/dL Reference Range: No NormalsCBC W/PLT COUNT & AUTO [id number] 20:17:00* Test Item Value Reference Range Interpretation [...] Slide comments: CBC W/PLT COUNT & AUTO [id number] 13:37:00* Test Item Value Reference Range Interpretation [...] Slide comments: CBC W/PLT COUNT & AUTO [id number] 10:50:00* Test Item Value Reference Range Interpretation [...] (BEAKER) (test code = 966) 1+ few GILLES CELLS (BEAKER) (test code = 474) 1+ few BASOPHILIC STIPPLING (BEAKER) (test code = 473) Present ARTIFACT (CELLAVISION)(BEAKER) (test code = 3432) Present PLATELET CONCENTRATION (CELLAVISION)(BEAKER) (test code = 3438) Cheryl quate Received comment: User comments: Slide comments: LACTIC ACID, [id number] 07:43:00* Test Item Value Reference Range Interpretation Comments LACTATE BLOOD VENOUS (2) (BEAKER) (test code = 2872) 0.9 mmol/L 0 .5-2.2 Specimen slightly hemolyzed Specimen markedly ictericHEPATIC FUNCTION [id number] 06:45:00* Test Item Value Reference Range Interpretation [...] 19 U/L 6-55 Specimen markedly ictericBASIC METABOLIC [id number] 06:44:00* Test Item Value Reference Range Interpretation [...] APPLICABLE FOR DIALYSIS PATIENTS. Specimen markedly ictericPROTHROMBIN TIME/[id number] 05:44:00* Test Item Value Reference Range Interpretation [...] mechanical heart valves.CBC W/PLT COUNT & AUTO [id number] 21:39:00* Test Item Value Reference Range Interpretation [...] comments: Slide comments: URINALYSIS W/ REFLEX URINE [id number] 18:43:00* Test Item Value Reference Range Interpretation [...] 516) < /HPF SOURCE(BEAKER) (test code = 7525) BASIC METABOLIC [id number] 18:23:00* Test Item Value Reference Range Interpretation [...] FOR DIALYSIS PATIENTS. Specimen markedly ictericU/S, ABDOMINAL, [id number] 17:43:00With doppler Reason for exam:->elevated liver enzymes, [...] MDReport Verified Date/Time: 10/17/2018 17:43:28 Reading Location: [address] Consult Reading Room U/S, DUPLEX, [id number] 17:43:00With doppler Reason for exam:->elevated liver enzymes, [...] Verified Date /Time: 10/17/2018 17:43:28 Reading Location: [address] Consult Reading Room [id number] 17:35:00* Test Item Value Reference Range Interpretation Comments MAGNESIUM (BEAKER) (test code = 627) 2.3 mg/dL 1.6-2.6 CREATINE KINASE (CK)2018-10-17 16:29:00* Test Item Value Reference Range Interpretation Comments CREATINE KINASE TOTAL (BEAKER) (test code = 380) 29 U/L 29-20 0 [id number] 16:11:00* Test Item Value Reference Range Interpretation Comments PROCALCITONIN (BEAKER) (test code = 3036) 0.71 ng/mL <0.05 H SEPSIS RISK (ng/mL)Low: 0.05-0.50Intermediate: 0.51-2.00High: > =2.01LACTIC ACID, [id number] 15:42:00* Test Item Value Reference Range Interpretation Comments LACTATE BLOOD VENOUS (2) (BEAKER) (test code = 2872) 1.2 mmol/L 0 .5-2.2 Specimen slightly hemolyzed Specimen markedly ictericCBC W/PLT COUNT & AUTO [id number] 15:29:00 * Test Item Value Reference Range [...] = 413) 0 /100 WBC 0 -0 [id number] 15:22:00* Test Item Value Reference Range Interpretation Comments ETHANOL (BEAKER) (test code = 400) < mg/dL <=10 CBC W/PLT COUNT & AUTO [id number] 14:47:00* Test Item Value Reference Range Interpretation [...] 21 U/L 6-55 Specimen markedly ictericBASIC METABOLIC [id number] 08:16:00* Test Item Value Reference Range Interpretation [...] PATIENTS. Specimen markedly ictericURINALYSIS W/ REFLEX URINE [id number] 03:31:00* Test Item Value Reference Range Interpretation [...] = 1521) Occasional SOURCE(BEAKER) (test code = 4712) Bilirubin Crystals seenBILIRUBIN, [id number] 00:59:00* Test Item Value Reference Range Interpretation Comments BILIRUBIN DIRECT (BEAKER) (test code = 706) 24.2 mg/dL 0.1-0.5 H Specimen slightly hemolyzed COMPREHENSIVE METABOLIC [id number] 00:58:00* Test Item Value Reference Range Interpretation [...] NOT APPLICABLE FOR DIALYSIS PATIENTS. Specimen markedly aykvufcGJHSTPUUF5000-02-62 00:13:00* Test Item Value Reference Range Interpretation Comments MAGNESIUM (BEAKER) (test code = 627) 1.5 mg/dL 1.6-2.6 L Specimen slightly hemolyzed PROTHROMBIN TIME/[id number] 23:47:00* Test Item Value Reference Range Interpretation [...] mechanical heart valves.CBC W/PLT COUNT & AUTO [id number] 23:43:00* Test Item Value Reference Range Interpretation [...] 0-1 H RAD, CHEST, 1 VIEW, NON [id number] 22:36:00Reason for exam:->SOBShould this be performed at [...] MDReport Verified Date/Time: 10/16/2018 22:36:02 Lactic Acid [id number] 20:02:00* Test Item Value Reference Range Interpretation Comments Lactic Acid Level (test code = Lactic Acid Level) 18.4 4.5- 19.8 [facility]23[facility]00 [place] [address] Patient Name: INDRA GALVAN JR MR #: [id number] : 1980 Age/Sex: 37/M Req #: [id number] Adm Physician: Ordered by: MARYLU DUQUE MD Report #: [id number] Location: ER Room/Bed: Procedure: NM/HEPTOBILIARY Exam Date: [...] COPY TO: MARYLU DUQUE MD CT ABDOMEN/PELVIS [id number] 17:40:00 [place] [address] Patient Name: INDRA GALVAN JR MR #: [id number] : 1980 Age/Sex: 37/M Req #: [id number] Adm Physician: Ordered by: MARYLU DUQUE MD Report #: [id number] Location: ER Room/Bed: Procedure: CT/CT ABDOMEN/PELVIS W [...] 10/16/181749 COPY TO: MARYLU DUQUE MD Prothrombin Njcv5646-05-04 17:34:00* Test Item Value Reference Range Interpretation Comments Prothrombin Time (test code = 5902-2) 18.5 11.9-14.5 H [facility] GreenvilleProthromb Time International Ratio 2018-10-16 17:34:00* Test Item Value Reference Range Interpretation Comments Prothromb Time International Ratio (test code = 6301-6) 1.48 Oral Anticoagulant Therapy INR Values:1. Low Intensity Therapy 1.5 - 2.02 . Moderate Intensity Therapy 2.0 - 3.03. High Intensity Therapy(1) 2.5 - 3. 54. High Intensity Therapy(2) 3.0 - 4.05. Panic Value INR > 5.0 [facility] GreenvilleAcetaminophen Nqddr1478-93-95 17:30:00* Test Item Value Reference Range Interpretation Comments Acetaminophen Level (test code = 89137-1) < 3 10-30 L [facility] GreenvilleUrine [id number] 16:09:00* Test Item Value Reference Range Interpretation Comments Urine WBC (test code = 5821-4) 0-5 0-5 [facility]villeUrine [id number] 16:09:00* Test Item Value Reference Range Interpretation Comments Urine RBC (test code = 82956-7) 6-10 0-5 H [facility]villeUrine Qpksljzt6099-00-63 16:09:00* Test Item Value Reference Range Interpretation Comments Urine Bacteria (test code = 28820-8) MANY NONE H [facility]villeUrine Epithelial Upcef3285-56-84 16:09:00 * Test Item Value Reference Range Interpretation Comments Urine Epithelial Cells (test code = 61606-0) FEW NONE [facility]villeUrine Amorphous Rvbixjzj9605-31-69 16:09:00* Test Item Value Reference Range Interpretation Comments Urine Amorphous Sediment (test code = 8246-1) MODERATE FEW H [facility]villeUrine Fine Granular Tprvm3515-71-89 16:09:00* Test Item Value Reference Range Interpretation Comments Urine Fine Granular Casts (test code = 44194-1) 1-5 >0 H [facility]villeUrine Vozka1437-50-02 15:58:00* Test Item Value Reference Range Interpretation Comments Urine Color (test code = 5778-6) BROWN YELLOW H [facility]villeUrine Nzoibri3992-46-61 15:58:00* Test Item Value Reference Range Interpretation Comments Urine Clarity (test code = 95800-7) CLOUDY CLEAR H [facility] GreenvilleUrine Specific Eabhkvn4101-00-45 15:58:00 * Test Item Value Reference Range Interpretation Comments Urine Specific Raymond (test code = 5811-5) 1.010 1.010-1.02 5 [facility]villeUrine oS3350-40-10 15:58:00* Test Item Value Reference Range Interpretation Comments Urine pH (test code = 68922-3) 7 5-7 [facility]villeU[facility] Leukocyte Tselgmhb0937-49-50 15:58:00* Test Item Value Reference Range Interpretation Comments Urine Leukocyte Esterase (test code = 56818-1) SMALL NEGATIV E [facility]villeUrine Xrgbrhu5953-77-76 15:58:00* Test Item Value Reference Range Interpretation Comments Urine Nitrite (test code = 03858-7) POSITIVE NEGATIVE H [facility]villeUrine Zmgpcvg9025-19-61 15:58:00* Test Item Value Reference Range Interpretation Comments Urine Protein (test code = 08855-1) 2+ NEGATIVE H [facility]villeUrine Glucose (UA)2018-10-16 15:58:00* Test Item Value Reference Range Interpretation Comments Urine Glucose (UA) (test code = 40670-3) 2+ [facility]GATIVE [facility] Wxxlsho6970-56-01 15:58:00* Test Item Value Reference Range Interpretation Comments Urine Ketones (test code = 87104-9) TRACE NEGATIVE [facility] Ajqeeamlahre8825-08-25 15:58:00* Test Item Value Reference Range Interpretation Comments Urine Urobilinogen (test code = 53710-7) 1 0.2-1 [facility]villeUrine Shkagnfep9406-53-28 15:58:00* Test Item Value Reference Range Interpretation Comments Urine Bilirubin (test code = 1977-8) LARGE NEGATIVE [facility]villeUrine Kvquv7438-30-09 15:58:00* Test Item Value Reference Range Interpretation Comments Urine Blood (test code = 08500-4) 3+ NEGATIVE [facility] GreenvilleB-Type Natriuretic Wdpewko4072-01-10 15:31:00* Test Item Value Reference Range Interpretation Comments B-Type Natriuretic Peptide (test code = 10562-6) 403.4 0-100 H [facility] GreenvilleCreatine Kinase [id number] 15:20:00* Test Item Value Reference Range Interpretation Comments Creatine Kinase MB (test code = 47651-2) 0.40 0-5.0 [facility] GreenvilleTroponin D8721-34-15 15:20:00* Test Item Value Reference Range Interpretation Comments Troponin I (test code = EQO7365) 0.012 0-0.300 [facility] Resourcesodium Fvozd9973-53-18 15:19:00* Test Item Value Reference Range Interpretation Comments Sodium Level (test code = 2951-2) 134 136-145 L [facility] GreenvillePotassium Sekoe9968-70-33 15:19:00* Test Item Value Reference Range Interpretation Comments Potassium Level (test code = 2823-3) 2.7 3.5-5.1 LL Results repeated and called to DR. KELSEY at 1518 on 10/16/18 by VICKY WHITTAKER. Read back and verified.[facility] GreenvilleChloride Level 2018-10-16 15:19:00* Test Item Value Reference Range Interpretation Comments Chloride Level (test code = 2075-0) 93 98-107 L [facility] GreenvilleCarbon Dioxide Kotus3665-48-83 15:19:00* Test Item Value Reference Range Interpretation Comments Carbon Dioxide Level (test code = 2028-9) 28 22-29 [facility] GreenvilleAnion Kip5168-17-28 15:19:00* Test Item Value Reference Range Interpretation Comments Anion Gap (test code = 89579-3) 15.7 8-16 [facility] GreenvilleBlood Urea Jcbxynwt3256-00-85 15:19:00* Test Item Value Reference Range Interpretation Comments Blood Urea Nitrogen (test code = 3094-0) 9 7-26 [facility] GreenvilleCreatinine2019-08-21 15:19:00* Test Item Value Reference Range Interpretation Comments Creatinine (test code = 2160-0) 1.47 0.72-1.25 H [facility] GreenvilleBUN/Creatinine Mfwad6822-11-33 15:19:00* Test Item Value Reference Range Interpretation Comments BUN/Creatinine Ratio (test code = 3097-3) 6 6- [facility] GreenvilleEstimat Glomerular Filtration Rate 2018-10-16 15:19:00* Test Item Value Reference Range Interpretation Comments Estimat Glomerular Filtration Rate (test code = 708382593) 53 >60 L Ranges were taken from the National Kidney Disease Education Program and the [facility] Foundation literature.Reference ranges:60 or greater: Oujhjx36-63 ( for 3 consecutive months): Chronic kidney disease 15 or less: Kidney failureHunt [facility] Medical Center at GreenvilleGlucose Fumzi0271-03-06 15:19:00* Test Item Value Reference Range Interpretation Comments Glucose Level (test code = DHF7717) 144 74-118 H [facility] GreenvilleCalcium Pyfpr7157-69-57 15:19:00* Test Item Value Reference Range Interpretation Comments Calcium Level (test code = 82248-2) 8.5 8.4-10.2 [facility] GreenvilleTotal Nbluvgkda5555-69-18 15:19:00* Test Item Value Reference Range Interpretation Comments Total Bilirubin (test code = 1975-2) > 25.0 0.2-1.2 H [facility] GreenvilleAspartate Amino Transf (AST/SGOT) 2018-10-16 15:19:00* Test Item Value Reference Range Interpretation Comments Aspartate Amino Transf (AST/SGOT) (test code = Aspartate Amino Transf (AST/SGOT)) 98 5-34 H [facility] GreenvilleAlanine Aminotransferase (ALT/SGPT) 2018-10-16 15:19:00* Test Item Value Reference Range Interpretation Comments Alanine Aminotransferase (ALT/SGPT) (test code = 1742-6) 22 0-55 [facility] GreenvilleTotal Oaolzcn4843-57-93 15:19:00* Test Item Value Reference Range Interpretation Comments Total Protein (test code = 2885-2) 6.6 6.5-8.1 [facility] GreenvilleAlbumin2019-08-21 15:19:00* Test Item Value Reference Range Interpretation Comments Albumin (test code = 1751-7) 2.5 3.5-5.0 L [facility] GreenvilleGlobulin2019-08-21 15:19:00* Test Item Value Reference Range Interpretation Comments Globulin (test code = 52747-2) 4.1 2.3-3.5 H [facility] GreenvilleAlbumin/Globulin Ryzxj3753-25-33 15:19:00 * Test Item Value Reference Range Interpretation Comments Albumin/Globulin Ratio (test code = 1759-0) 0.6 0.8-2.0 L [facility] GreenvilleAlkaline Ddxqfigbyox3796-12-14 15:19:00* Test Item Value Reference Range Interpretation Comments Alkaline Phosphatase (test code = 6768-6) 159 40-150 H [facility] GreenvilleCreatine Vhchub2579-14-77 15:19:00* Test Item Value Reference Range Interpretation Comments Creatine Kinase (test code = 2157-6) 39 30-200 [facility] GreenvilleWhite Blood Dyvhs4220-61-92 14:59:00* Test Item Value Reference Range Interpretation Comments White Blood Count (test code = 6690-2) 18.65 4.8-10.8 H [facility] GreenvilleRed Blood Uisrj9079-23-79 14:59:00* Test Item Value Reference Range Interpretation Comments Red Blood Count (test code = 789-8) 2.11 4.3-5.7 L [facility] GreenvilleHemoglobin2019-08-21 14:59:00* Test Item Value Reference Range Interpretation Comments Hemoglobin (test code = 70550-5) 7.7 14.0-18.0 L [facility] GreenvilleHematocrit2019-08-21 14:59:00* Test Item Value Reference Range Interpretation Comments Hematocrit (test code = 4544-3) 22.2 38.2-49.6 L [facility] GreenvilleMean Corpuscular Zxjdfi3486-85-53 14:59:00* Test Item Value Reference Range Interpretation Comments Mean Corpuscular Volume (test code = 787-2) 105.2 81-99 H [facility] GreenvilleMean Corpuscular Engslongry9707-19-37 14:59:00* Test Item Value Reference Range Interpretation Comments Mean Corpuscular Hemoglobin (test code = 785-6) 36.5 28-32 H [facility] GreenvilleMean Corpuscular Hemoglobin Concent 2018-10-16 14:59:00* Test Item Value Reference Range Interpretation Comments Mean Corpuscular Hemoglobin Concent (test code = 786-4) 34.7 31-35 [facility] GreenvilleRed Cell Distribution Kaudu1692-25-01 14:59:00* Test Item Value Reference Range Interpretation Comments Red Cell Distribution Width (test code = 86912-0) 14.0 11.7 -14.4 [facility] GreenvillePlatelet Jwrue2479-35-89 14:59:00* Test Item Value Reference Range Interpretation Comments Platelet Count (test code = 777-3) 184 140-360 [facility] GreenvilleNeutrophils (%) (Auto)2018-10-16 14:59:00 * Test Item Value Reference Range Interpretation Comments Neutrophils (%) (Auto) (test code = 27686-7) 80.6 38.7-80.0 H [facility] GreenvilleLymphocytes (%) (Auto)2018-10-16 14:59:00 * Test Item Value Reference Range Interpretation Comments Lymphocytes (%) (Auto) (test code = 736-9) 5.3 18.0-39.1 L [facility] GreenvilleMonocytes (%) (Auto)2018-10-16 14:59:00* Test Item Value Reference Range Interpretation Comments Monocytes (%) (Auto) (test code = 5905-5) 11.7 4.4-11.3 H [facility] GreenvilleEosinophils (%) (Auto)2018-10-16 14:59:00 * Test Item Value Reference Range Interpretation Comments Eosinophils (%) (Auto) (test code = 713-8) 0.5 0.0-6.0 [facility] GreenvilleBasophils (%) (Auto)2018-10-16 14:59:00* Test Item Value Reference Range Interpretation Comments Basophils (%) (Auto) (test code = 706-2) 0.3 0.0-1.0 [facility] GreenvilleIM GRANULOCYTES %2018-10-16 14:59:00* Test Item Value Reference Range Interpretation Comments IM GRANULOCYTES % (test code = IM GRANULOCYTES %) 1.6 0.0- 1.0 H [facility] GreenvilleNeutrophils # (Auto)2018-10-16 14:59:00* Test Item Value Reference Range Interpretation Comments Neutrophils # (Auto) (test code = 751-8) 15.0 2.1-6.9 H [facility] GreenvilleLymphocytes # (Auto)2018-10-16 14:59:00* Test Item Value Reference Range Interpretation Comments Lymphocytes # (Auto) (test code = 53450-6) 1.0 1.0-3.2 [facility] GreenvilleMonocytes # (Auto)2018-10-16 14:59:00* Test Item Value Reference Range Interpretation Comments Monocytes # (Auto) (test code = 742-7) 2.2 0.2-0.8 H [facility] GreenvilleEosinophils # (Auto)2018-10-16 14:59:00* Test Item Value Reference Range Interpretation Comments Eosinophils # (Auto) (test code = 711-2) 0.1 0.0-0.4 [facility] GreenvilleBasophils # (Auto)2018-10-16 14:59:00* Test Item Value Reference Range Interpretation Comments Basophils # (Auto) (test code = 704-7) 0.1 0.0-0.1 [facility] GreenvilleAbsolute Immature Granulocyte (auto 2018-10-16 14:59:00* Test Item Value Reference Range Interpretation Comments Absolute Immature Granulocyte (auto (doug t code = Absolute Immature Granulocyte (auto) 0.30 0-0.1 H [facility] GreenvilleAFB CULTURE + [id number] 07:33:00* Test Item Value Reference Range Interpretation Comments CULTURE (BEAKER) (test code = 1095) No acid-fast bacilli isolate d in 42 days AFB SMEAR (BEAKER) (test code = 994) No acid fast bacilli seen FUNGUS CULTURE + [id number] 17:11:00* Test Item Value Reference Range Interpretation Comments CULTURE (BEAKER) (test code = 1095) No fungus isolated in 28 days FUNGUS SMEAR (BEAKER) (test code = 1406) No fungi seen CREATINE KINASE (CK)2018-07-09 05:38:00* Test Item Value Reference Range Interpretation Comments CREATINE KINASE TOTAL (BEAKER) (test code = 380) 17 U/L 29-20 0 L JQQFYHOOX2587-91-07 05:37:00* Test Item Value Reference Range Interpretation Comments MAGNESIUM (BEAKER) (test code = 627) 1.6 mg/dL 1.6-2.6 BASIC METABOLIC FSJNT7743-42-39 05:37:00* Test Item Value Reference Range Interpretation [...] FOR DIALYSIS PATIENTS. Specimen moderately ictericHEPATIC FUNCTION UUWKQ4012-79-67 05:37:00* Test Item Value Reference Range Interpretation [...] 347) 83 U/L 6-55 H Specimen moderately yyhmprxEPZK4687-26-85 05:32:00* Test Item Value Reference Range Interpretation Comments PARTIAL THROMBOPLASTIN TIME (BEAKER) (test code = 760) 45.3 seconds 22.5-36.0 H PROTHROMBIN TIME/YZS7459-74-00 05:31:00* Test Item Value Reference Range Interpretation [...] mechanical heart valves.CBC W/PLT COUNT & AUTO ZXPMEFDDVMHX0899-22-01 05:08:00* Test Item Value Reference Range Interpretation [...] code = 2801) 1 % 0-1 POCT-GLUCOSE QAANY8533-30-75 22:05:00* Test Item Value Reference Range Interpretation Comments POC-GLUCOSE METER (BEAKER) (test code = 1538) 168 mg/dL 70-110 H TESTED AT [facility] [address] [facility] [address] [place], ESOPH, SWALLOW FUNCTION, WITH CINE OR [id number] 10:04:00Reason for exam:->evaluate swallow safety after prolonged [...] MDReport Verified Date/Time: 07/08/2018 10:04:01 Reading Location: [place] [address]X Ortho Consult Reading Room SYJMF4288-47-59 06:21:00* Test Item Value Reference Range Interpretation Comments MAGNESIUM (BEAKER) (test code = 627) 1.7 mg/dL 1.6-2.6 BASIC METABOLIC [id number] 06:21:00* Test Item Value Reference Range Interpretation [...] FOR DIALYSIS PATIENTS. Specimen moderately ictericHEPATIC FUNCTION [id number] 06:21:00* Test Item Value Reference Range Interpretation [...] Specimen moderately ictericCBC W/PLT COUNT & AUTO FJHMCQQDVOZT7579-61-54 06:09:00* Test Item Value Reference Range Interpretation [...] (test code = 2801) 1 % 0-1 NTWE9569-57-43 05:49:00* Test Item Value Reference Range Interpretation Comments PARTIAL THROMBOPLASTIN TIME (BEAKER) (test code = 760) 45.0 seconds 22.5-36.0 H PROTHROMBIN TIME/HFN1075-52-65 05:48:00* Test Item Value Reference Range Interpretation Comments PROTIME (BEAKER) (test code = 759) 15.7 seconds 11.7-14.7 H INR (BEAKER) (test code = 370) 1.3 <=5.9 RECOMMENDED COUMADIN/WARFARIN INR THERAPY RANGESSTANDARD DOSE: 2.0 - 3.0 Inclu herb: PROPHYLAXIS for venous thrombosis, systemic embolization; TREATMENT for giulia ous thrombosis and/or pulmonary embolus.HIGH RISK: Target INR is 2.5-3.5 for pat ients with mechanical heart valves.POCT-GLUCOSE [id number] 05:45:00* Test Item Value Reference Range Interpretation Comments POC-GLUCOSE METER (BEAKER) (test code = 1538) 104 mg/dL 70-110 TESTED AT [facility] [address] [facility] [address] POCT-GLUCOSE [id number] 00:02:00* Test Item Value Reference Range Interpretation Comments POC-GLUCOSE METER (BEAKER) (test code = 1538) 102 mg/dL 70-110 TESTED AT [facility] [address] [facility] [address] POCT-GLUCOSE [id number] 18:01:00* Test Item Value Reference Range Interpretation Comments POC-GLUCOSE METER (BEAKER) (test code = 1538) 91 mg/dL 70-110 TESTED AT [facility] [address] [facility] [address] POCT-GLUCOSE [id number] 12:34:00* Test Item Value Reference Range Interpretation Comments POC-GLUCOSE METER (BEAKER) (test code = 1538) 94 mg/dL 70-110 TESTED AT [facility] [address] [facility] [address] POCT-GLUCOSE [id number] 06:22:00* Test Item Value Reference Range Interpretation Comments POC-GLUCOSE METER (BEAKER) (test code = 1538) 111 mg/dL 70-110 H TESTED AT [facility] [address] [facility] [address] [id number] 06:14:00* Test Item Value Reference Range Interpretation Comments MAGNESIUM (BEAKER) (test code = 627) 1.8 mg/dL 1.6-2.6 BASIC METABOLIC [id number] 06:14:00* Test Item Value Reference Range Interpretation [...] FOR DIALYSIS PATIENTS. Specimen moderately ictericHEPATIC FUNCTION [id number] 06:14:00* Test Item Value Reference Range Interpretation [...] 347) 93 U/L 6-55 H Specimen moderately hblzeuhRPXR7799-98-11 05:42:00* Test Item Value Reference Range Interpretation Comments PARTIAL THROMBOPLASTIN TIME (BEAKER) (test code = 760) 43.0 seconds 22.5-36.0 H PROTHROMBIN TIME/[id number] 05:41:00* Test Item Value Reference Range Interpretation [...] mechanical heart valves.CBC W/PLT COUNT & AUTO [id number] 05:30:00* Test Item Value Reference Range Interpretation [...] code = 2801) 1 % 0-1 POCT-GLUCOSE [id number] 00:27:00* Test Item Value Reference Range Interpretation Comments POC-GLUCOSE METER (BEAKER) (test code = 1538) 110 mg/dL 70-110 TESTED AT [facility] [address] [facility] [address] POCT-GLUCOSE [id number] 17:58:00* Test Item Value Reference Range Interpretation Comments POC-GLUCOSE METER (BEAKER) (test code = 1538) 165 mg/dL 70-110 H TESTED AT [facility] [address] [facility] [address] POCT-GLUCOSE [id number] 12:01:00* Test Item Value Reference Range Interpretation Comments POC-GLUCOSE METER (BEAKER) (test code = 1538) 138 mg/dL 70-110 H TESTED AT [facility] [address] [facility] [address] [id number] 07:32:00* Test Item Value Reference Range Interpretation Comments PARTIAL THROMBOPLASTIN TIME (BEAKER) (test code = 760) 43.2 seconds 22.5-36.0 H PROTHROMBIN TIME/[id number] 07:31:00* Test Item Value Reference Range Interpretation Comments PROTIME (BEAKER) (test code = 759) 15.1 seconds 11.7-14.7 H INR (BEAKER) (test code = 370) 1.3 <=5.9 RECOMMENDED COUMADIN/WARFARIN INR THERAPY RANGESSTANDARD DOSE: 2.0 - 3.0 Inclu herb: PROPHYLAXIS for venous thrombosis, systemic embolization; TREATMENT for giulia ous thrombosis and/or pulmonary embolus.HIGH RISK: Target INR is 2.5-3.5 for pat ients with mechanical heart valves.[id number] 06:50:00* Test Item Value Reference Range Interpretation Comments MAGNESIUM (BEAKER) (test code = 627) 1.5 mg/dL 1.6-2.6 L BASIC METABOLIC [id number] 06:50:00* Test Item Value Reference Range Interpretation [...] FOR DIALYSIS PATIENTS. Specimen moderately ictericHEPATIC FUNCTION [id number] 06:50:00* Test Item Value Reference Range Interpretation [...] Specimen moderately ictericCBC W/PLT COUNT & AUTO [id number] 06:49:00* Test Item Value Reference Range Interpretation [...] code = 2801) 1 % 0-1 POCT-GLUCOSE [id number] 06:06:00* Test Item Value Reference Range Interpretation Comments POC-GLUCOSE METER (BEAKER) (test code = 1538) 165 mg/dL 70-110 H TESTED AT [address] [address] POCT-GLUCOSE [id number] 00:15:00* Test Item Value Reference Range Interpretation Comments POC-GLUCOSE METER (BEAKER) (test code = 1538) 132 mg/dL 70-110 H TESTED AT [address] [address] POCT-GLUCOSE [id number] 21:55:00* Test Item Value Reference Range Interpretation Comments POC-GLUCOSE METER (BEAKER) (test code = 1538) 161 mg/dL 70-110 H TESTED AT [address] [address] POCT-GLUCOSE [id number] 17:57:00* Test Item Value Reference Range Interpretation Comments POC-GLUCOSE METER ([facility]) (test code = 1538) 136 mg/dL 70-110 H TESTED AT [facility] [address] [facility] [address] TISSUE [id number] 16:12:00Surgical Pathology Report Case: [id number] Authorizing Provider: Neptali Kolb, Collected: 07/04/2018 0827 Ordering Location: [address] Received: 07/04/2018 1313 Pathologist: Be Arenas MD Specimen: Cecum, R/O lymphoma PART A CECAL BIOPSY:GRANULATION TISSUE.NO EVIDENCE OF LYMPHOMA OR CARCINOMA..IMMUNOSTAINS FOR CMV, HSV1, HSV2 ARE NEGATIVE.SPECIAL STAINS FOR FUNGAL ORGANISMS (GMS, PAS) ARE NEGATIVE.SEE DIAGNOSTIC COMMENT. Signing Pathologist Direct Phone Line: [phone] signed by Be Arenas MD on 07/05/2018 [...] the sampled material may not be fully account manager 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 The prominent B cell population identified in the prior study ([id number]) is not identified in the current study. If there is a strong clinical concern for a malignant process, additional tissue based studies are recommended as the sampled material may not be fully account manager 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 [address], [address]907, 70412R0, 36366H2Cehzd ulcer lower GI bleeding, rule out lymphomaCecum Received in formalin labeled as "cecum, rule out lymphoma" are multiple more than five red-guajardo tissue fragments ranging from 0.1 to 0.4 cm. The specimen is submitted in toto in one cassette. [place]/plperformedThe interpretation of this case included the use of immunohistochemistry or special stains.BLOCK A1- GMS, PAS, HSV1, HSV2, CD20, PAX5, CD3, AX3Eqyhfby Slides Exa mined: In-house known positive controls were evaluated along with the test tiss ue. These control slides run alongside of the patients sample show appropriate staining. Internal positive and negative controls when available are evaluated I mmunohistochemistry technical testing was performed at [facility], Pathology Laboratory where it was developed [...] perfo rm high complexity clinical laboratory testing.POCT-GLUCOSE [id number] 12:01:00* Test Item Value Reference Range Interpretation Comments POC-GLUCOSE METER (BEAKER) (test code = 1538) 157 mg/dL 70-110 H TESTED AT [facility] [address] [facility] [address] CBC W/PLT COUNT & AUTO [id number] 07:05:00* Test Item Value Reference Range Interpretation [...] (BEAKER) (test code = 966) 2+ moderate GILLES CELLS (BEAKER) (test code = 474) 1+ few PLATELET CONCENTRATION (CELLAVISION)(BEAKER) (test code = 3438) Cheryl quate Received comment: User comments: Slide comments: POCT-GLUCOSE [id number] 06:09:00* Test Item Value Reference Range Interpretation Comments POC-GLUCOSE METER (BEAKER) (test code = 1538) 148 mg/dL 70-110 H TESTED AT [facility] [address] [facility] [place] [address] [id number] 05:03:00* Test Item Value Reference Range Interpretation Comments MAGNESIUM (BEAKER) (test code = 627) 1.7 mg/dL 1.6-2.6 BASIC METABOLIC [id number] 05:03:00* Test Item Value Reference Range Interpretation [...] FOR DIALYSIS PATIENTS. Specimen moderately ictericHEPATIC FUNCTION [id number] 05:03:00* Test Item Value Reference Range Interpretation [...] 347) 112 U/L 6-55 H Specimen moderately [id number] 04:56:00* Test Item Value Reference Range Interpretation Comments PARTIAL THROMBOPLASTIN TIME (BEAKER) (test code = 760) 49.3 seconds 22.5-36.0 H PROTHROMBIN TIME/[id number] 04:55:00* Test Item Value Reference Range Interpretation Comments PROTIME (BENEETU) (test code = 759) 16.0 seconds 11.7-14.7 H INR (BEAKER) (test code = 370) 1.4 <=5.9 RECOMMENDED COUMADIN/WARFARIN INR THERAPY RANGESSTANDARD DOSE: 2.0 - 3.0 Inclu herb: PROPHYLAXIS for venous thrombosis, systemic embolization; TREATMENT for giulia ous thrombosis and/or pulmonary embolus.HIGH RISK: Target INR is 2.5-3.5 for pat ients with mechanical heart valves.POCT-GLUCOSE [id number] 00:01:00* Test Item Value Reference Range Interpretation Comments POC-GLUCOSE METER ([facility]) (test code = 1538) 144 mg/dL 70-110 H TESTED AT [address] [address] POCT-GLUCOSE [id number] 18:04:00* Test Item Value Reference Range Interpretation Comments POC-GLUCOSE METER ([facility]) (test code = 1538) 113 mg/dL 70-110 H TESTED AT [address] [address] POCT-GLUCOSE [id number] 11:48:00* Test Item Value Reference Range Interpretation Comments POC-GLUCOSE METER ([facility]) (test code = 1538) 92 mg/dL 70-110 TESTED AT [address] [address] CBC W/PLT COUNT & AUTO [id number] 10:15:00* Test Item Value Reference Range Interpretation [...] Received comment: User comments: Slide comments: POCT-GLUCOSE [id number] 06:36:00* Test Item Value Reference Range Interpretation Comments POC-GLUCOSE METER (BEAKER) (test code = 1538) 107 mg/dL 70-110 TESTED AT [facility] [address] [place] [address] [id number] 05:42:00* Test Item Value Reference Range Interpretation Comments MAGNESIUM (BEAKER) (test code = 627) 1.9 mg/dL 1.6-2.6 Specimen slightly hemolyzed BASIC METABOLIC [id number] 05:42:00* Test Item Value Reference Range Interpretation [...] FOR DIALYSIS PATIENTS. Specimen moderately ictericHEPATIC FUNCTION [id number] 05:42:00* Test Item Value Reference Range Interpretation [...] 6-55 H Specimen slightly hemolyzed Specimen moderately [id number] 05:35:00* Test Item Value Reference Range Interpretation Comments PARTIAL THROMBOPLASTIN TIME (BEAKER) (test code = 760) 40.6 seconds 22.5-36.0 H PROTHROMBIN TIME/[id number] 05:34:00* Test Item Value Reference Range Interpretation Comments PROTIME (BEAKER) (test code = 759) 16.0 seconds 11.7-14.7 H INR (BEAKER) (test code = 370) 1.3 <=5.9 RECOMMENDED COUMADIN/WARFARIN INR THERAPY RANGESSTANDARD DOSE: 2.0 - 3.0 Inclu herb: PROPHYLAXIS for venous thrombosis, systemic embolization; TREATMENT for giulia ous thrombosis and/or pulmonary embolus.HIGH RISK: Target INR is 2.5-3.5 for pat ients with mechanical heart valves.POCT-GLUCOSE [id number] 00:32:00* Test Item Value Reference Range Interpretation Comments POC-GLUCOSE METER (BEAKER) (test code = 1538) 106 mg/dL 70-110 TESTED AT [facility] [address] [facility] [address] RAD, CHEST, 1 VIEW, NON [id number] 18:48:00Reason for exam:->SOBShould this be performed at [...] MDReport Verified Date/Time: 07/03/2018 18:48:11 Reading Location: [address] Consult Reading Room -GLUCOSE [id number] 17:36:00* Test Item Value Reference Range Interpretation Comments POC-GLUCOSE METER (BEAKER) (test code = 1538) 130 mg/dL 70-110 H TESTED AT [facility] [address] [facility] [address] HEMOGLOBIN AND [id number] 14:44:00* Test Item Value Reference Range Interpretation Comments HEMOGLOBIN (BEAKER) (test code = 410) 8.1 GM/DL 13.7-17.5 L HEMATOCRIT (BEAKER) (test code = 411) 25.8 % 40.1-51.0 L CBC W/PLT COUNT & AUTO [id number] 12:53:00* Test Item Value Reference Range Interpretation [...] MDReport Verified Date/Time: 07/03/2018 07:23:40 Reading Location: [facility] Radiology Reading Room -GLUCOSE [id number] 06:01:00* Test Item Value Reference Range Interpretation Comments POC-GLUCOSE METER (BEAKER) (test code = 1538) 203 mg/dL 70-110 H TESTED AT [address] [address] [id number] 05:39:00* Test Item Value Reference Range Interpretation Comments MAGNESIUM (BEAKER) (test code = 627) 1.7 mg/dL 1.6-2.6 BASIC METABOLIC [id number] 05:39:00* Test Item Value Reference Range Interpretation [...] FOR DIALYSIS PATIENTS. Specimen moderately ictericHEPATIC FUNCTION [id number] 05:39:00* Test Item Value Reference Range Interpretation [...] 347) 125 U/L 6-55 H Specimen moderately [id number] 05:10:00* Test Item Value Reference Range Interpretation Comments PARTIAL THROMBOPLASTIN TIME (BEAKER) (test code = 760) 41.9 seconds 22.5-36.0 H PROTHROMBIN TIME/[id number] 05:09:00* Test Item Value Reference Range Interpretation [...] pat ients with mechanical heart valves.HEMOGLOBIN AND [id number] 00:58:00 * Test Item Value Reference Range Interpretation Comments HEMOGLOBIN (BEAKER) (test code = 410) 8.3 GM/DL 13.7-17.5 L HEMATOCRIT (BEAKER) (test code = 411) 26.1 % 40.1-51.0 L POCT-GLUCOSE [id number] 23:25:00* Test Item Value Reference Range Interpretation Comments POC-GLUCOSE METER (BEAKER) (test code = 1538) 179 mg/dL 70-110 H TESTED AT [facility] [address] [facility] [address] POCT-GLUCOSE [id number] 18:01:00* Test Item Value Reference Range Interpretation Comments POC-GLUCOSE METER (BEAKER) (test code = 1538) 175 mg/dL 70-110 H TESTED AT [facility] [address] [facility] [address] HEMOGLOBIN AND [id number] 17:25:00* Test Item Value Reference Range Interpretation Comments HEMOGLOBIN (BEAKER) (test code = 410) 7.9 GM/DL 13.7-17.5 L HEMATOCRIT (BEAKER) (test code = 411) 24.0 % 40.1-51.0 L CBC W/PLT COUNT & AUTO [id number] 13:26:00* Test Item Value Reference Range Interpretation [...] Received comment: User comments: Slide comments: POCT-GLUCOSE [id number] 11:58:00* Test Item Value Reference Range Interpretation Comments POC-GLUCOSE METER (BEAKER) (test code = 1538) 148 mg/dL 70-110 H TESTED AT [facility] [address] [facility] [address] RAD, CHEST, 1 VIEW, NON [id number] 07:41:00Reason for exam:->Pulmonary edema evaluationShould this be [...] MDReport Verified Date/Time: 07/02/2018 07:41:39 Reading Location: [facility] Radiology Reading Room 1716-31-14 07:01:00* Test Item Value Reference Range Interpretation Comments PARTIAL THROMBOPLASTIN TIME (BEAKER) (test code = 760) 46.2 seconds 22.5-36.0 H PROTHROMBIN TIME/[id number] 06:59:00* Test Item Value Reference Range Interpretation [...] pat ients with mechanical heart valves.HEMOGLOBIN AND [id number] 06:48:00 * Test Item Value Reference Range Interpretation Comments HEMOGLOBIN (BEAKER) (test code = 410) 7.9 GM/DL 13.7-17.5 L HEMATOCRIT (BEAKER) (test code = 411) 25.0 % 40.1-51.0 L POCT-GLUCOSE [id number] 06:17:00* Test Item Value Reference Range Interpretation Comments POC-GLUCOSE METER (BEAKER) (test code = 1538) 170 mg/dL 70-110 H TESTED AT [facility] [address] [facility] [address] CREATINE KINASE (CK)2018-07-02 03:50:00* Test Item Value Reference Range Interpretation Comments CREATINE KINASE TOTAL (BEAKER) (test code = 380) 17 U/L 29-20 0 L [id number] 03:44:00* Test Item Value Reference Range Interpretation Comments MAGNESIUM (BEAKER) (test code = 627) 1.9 mg/dL 1.6-2.6 Specimen slightly hemolyzed BASIC METABOLIC [id number] 03:44:00* Test Item Value Reference Range Interpretation [...] FOR DIALYSIS PATIENTS. Specimen moderately ictericHEPATIC FUNCTION [id number] 03:44:00* Test Item Value Reference Range Interpretation [...] Specimen slightly hemolyzed Specimen moderately ictericHEMOGLOBIN AND [id number] 03:08:00* Test Item Value Reference Range Interpretation Comments HEMOGLOBIN (BEAKER) (test code = 410) 7.9 GM/DL 13.7-17.5 L HEMATOCRIT (BEAKER) (test code = 411) 24.8 % 40.1-51.0 L POCT-GLUCOSE [id number] 23:24:00* Test Item Value Reference Range Interpretation Comments POC-GLUCOSE METER (BEAKER) (test code = 1538) 155 mg/dL 70-110 H TESTED AT [facility] [address] [facility] [address] HEMOGLOBIN AND [id number] 18:35:00* Test Item Value Reference Range Interpretation Comments HEMOGLOBIN (BEAKER) (test code = 410) 7.9 GM/DL 13.7-17.5 L HEMATOCRIT (BEAKER) (test code = 411) 24.1 % 40.1-51.0 L POCT-GLUCOSE [id number] 17:49:00* Test Item Value Reference Range Interpretation Comments POC-GLUCOSE METER (BEAKER) (test code = 1538) 148 mg/dL 70-110 H TESTED AT [facility] [address] [facility] [address] POCT-GLUCOSE [id number] 11:44:00* Test Item Value Reference Range Interpretation Comments POC-GLUCOSE METER (BEAKER) (test code = 1538) 151 mg/dL 70-110 H TESTED AT [facility] [address] [facility] [address] HEMOGLOBIN AND [id number] 10:59:00* Test Item Value Reference Range Interpretation Comments HEMOGLOBIN (BEAKER) (test code = 410) 8.0 GM/DL 13.7-17.5 L HEMATOCRIT (BEAKER) (test code = 411) 24.0 % 40.1-51.0 L RAD, CHEST, 1 VIEW, NON [id number] 08:47:00Reason for exam:->Pulmonary edema evaluationShould this be [...] Valenzuela Verified Date/Time: 07/01/2018 08:47:41 Reading Location: [facility] Diagnostic Imaging Reading Room - [place] [address] -GLUCOSE [id number] 06:47:00 * Test Item Value Reference Range Interpretation Comments POC-GLUCOSE METER (BEAKER) (test code = 1538) 153 mg/dL 70-110 H TESTED AT [facility] [address] [facility] [address] [id number] 04:06:00* Test Item Value Reference Range Interpretation Comments MAGNESIUM (BEAKER) (test code = 627) 1.9 mg/dL 1.6-2.6 BASIC METABOLIC [id number] 04:06:00* Test Item Value Reference Range Interpretation [...] FOR DIALYSIS PATIENTS. Specimen moderately ictericHEPATIC FUNCTION [id number] 04:06:00* Test Item Value Reference Range Interpretation [...] 347) 145 U/L 6-55 H Specimen moderately [id number] 03:50:00* Test Item Value Reference Range Interpretation Comments PARTIAL THROMBOPLASTIN TIME (BEAKER) (test code = 760) 46.8 seconds 22.5-36.0 H PROTHROMBIN TIME/[id number] 03:49:00* Test Item Value Reference Range Interpretation [...] mechanical heart valves.CBC W/PLT COUNT & AUTO [id number] 03:32:00* Test Item Value Reference Range Interpretation [...] 2801) 2 % 0-1 H HEMOGLOBIN AND [id number] 03:20:00* Test Item Value Reference Range Interpretation Comments HEMOGLOBIN (BEAKER) (test code = 410) 7.7 GM/DL 13.7-17.5 L HEMATOCRIT (BEAKER) (test code = 411) 24.3 % 40.1-51.0 L POCT-GLUCOSE [id number] 23:51:00* Test Item Value Reference Range Interpretation Comments POC-GLUCOSE METER (BEAKER) (test code = 1538) 146 mg/dL 70-110 H TESTED AT [facility] [address] [facility] [address] POCT-GLUCOSE [id number] 17:40:00* Test Item Value Reference Range Interpretation Comments POC-GLUCOSE METER (BEAKER) (test code = 1538) 194 mg/dL 70-110 H TESTED AT [address] [address] HEMOGLOBIN AND [id number] 17:33:00* Test Item Value Reference Range Interpretation Comments HEMOGLOBIN (BEAKER) (test code = 410) 7.9 GM/DL 13.7-17.5 L HEMATOCRIT (BEAKER) (test code = 411) 24.6 % 40.1-51.0 L CBC W/PLT COUNT & AUTO [id number] 15:29:00* Test Item Value Reference Range Interpretation [...] Received comment: User comments: Slide comments: POCT-GLUCOSE [id number] 11:51:00* Test Item Value Reference Range Interpretation Comments POC-GLUCOSE METER (BEAKER) (test code = 1538) 191 mg/dL 70-110 H TESTED AT [address] [address] HEMOGLOBIN AND [id number] 09:19:00* Test Item Value Reference Range Interpretation Comments HEMOGLOBIN (BEAKER) (test code = 410) 7.8 GM/DL 13.7-17.5 L HEMATOCRIT (BEAKER) (test code = 411) 24.1 % 40.1-51.0 L RAD, CHEST, 1 VIEW, NON [id number] 08:34:00Reason for exam:->Pulmonary edema evaluationShould this be [...] Garcia Verified Date/Time: 06/30/2018 08:34:20 Reading Location: [address] Reading Room [facility] 2018-06-30 07:03:00* Test Item Value Reference Range Interpretation Comments MAGNESIUM (BEAKER) (test code = 627) 2.1 mg/dL 1.6-2.6 BASIC METABOLIC [id number] 07:03:00* Test Item Value Reference Range Interpretation [...] FOR DIALYSIS PATIENTS. Specimen moderately ictericHEPATIC FUNCTION [id number] 07:03:00* Test Item Value Reference Range Interpretation [...] 162 U/L 6-55 H Specimen moderately ictericPOCT-GLUCOSE [id number] 06:08:00* Test Item Value Reference Range Interpretation Comments POC-GLUCOSE METER (BEAKER) (test code = 1538) 127 mg/dL 70-110 H TESTED AT [facility] [address] [facility] [address] [id number] 06:06:00* Test Item Value Reference Range Interpretation Comments PARTIAL THROMBOPLASTIN TIME (BEAKER) (test code = 760) 27.4 seconds 22.5-36.0 PROTHROMBIN TIME/[id number] 06:05:00* Test Item Value Reference Range Interpretation [...] pat ients with mechanical heart valves.HEMOGLOBIN AND [id number] 00:04:00 * Test Item Value Reference Range Interpretation Comments HEMOGLOBIN (BEAKER) (test code = 410) 8.3 GM/DL 13.7-17.5 L HEMATOCRIT (BEAKER) (test code = 411) 25.4 % 40.1-51.0 L POCT-GLUCOSE [id number] 00:02:00* Test Item Value Reference Range Interpretation Comments POC-GLUCOSE METER (BEAKER) (test code = 1538) 140 mg/dL 70-110 H TESTED AT [facility] [address] [facility] [address] POCT-GLUCOSE [id number] 17:41:00* Test Item Value Reference Range Interpretation Comments POC-GLUCOSE METER (BEAKER) (test code = 1538) 155 mg/dL 70-110 H TESTED AT [place] [id number] [facility] [address] HEMOGLOBIN AND [id number] 16:00:00* Test Item Value Reference Range Interpretation Comments HEMOGLOBIN (BEAKER) (test code = 410) 8.2 GM/DL 13.7-17.5 L HEMATOCRIT (BEAKER) (test code = 411) 25.5 % 40.1-51.0 L BLOOD GAS, [id number] 15:50:00* Test Item Value Reference Range Interpretation [...] 30.0 % RAD, CHEST, 1 VIEW, NON [id number] 14:58:00Reason for exam:->Pulmonary edema evaluationShould this be performed at the bedside?->YesFINAL REPORT AP chest HISTORY: Pulmonary edema. COMPARISON: 06/28/2018. IMPRESSION: Tracheostomy tube and feeding tube present. Hypoinflation. Mild interstitial edema, increased from previous. No effusion or pneumothorax. Signed: Eric Andrade MDReport Verified Date/Time: 06/29/2018 14:58:10 Reading Location: [address] Transitional Reading Room W/PLT COUNT & [...] Received comment: User comments: Slide comments: POCT-GLUCOSE [id number] 12:20:00* Test Item Value Reference Range Interpretation Comments POC-GLUCOSE METER (BEAKER) (test code = 1538) 154 mg/dL 70-110 H TESTED AT [facility] [address] [facility] [address] [id number] 06:44:00* Test Item Value Reference Range Interpretation Comments PARTIAL THROMBOPLASTIN TIME (BEAKER) (test code = 760) 40.7 seconds 22.5-36.0 H PROTHROMBIN TIME/[id number] 06:43:00* Test Item Value Reference Range Interpretation Comments PROTIME (BEAKER) (test code = 759) 16.8 seconds 11.7-14.7 H INR (BEAKER) (test code = 370) 1.4 <=5.9 RECOMMENDED COUMADIN/WARFARIN INR THERAPY RANGESSTANDARD DOSE: 2.0 - 3.0 Inclu herb: PROPHYLAXIS for venous thrombosis, systemic embolization; TREATMENT for giulia ous thrombosis and/or pulmonary embolus.HIGH RISK: Target INR is 2.5-3.5 for pat ients with mechanical heart valves.POCT-GLUCOSE [id number] 06:07:00* Test Item Value Reference Range Interpretation Comments POC-GLUCOSE METER (BEAKER) (test code = 1538) 177 mg/dL 70-110 H TESTED AT [place] [id number] [facility] [address] [id number] 04:04:00* Test Item Value Reference Range Interpretation Comments MAGNESIUM (BEAKER) (test code = 627) 2.0 mg/dL 1.6-2.6 Specimen slightly hemolyzed BASIC METABOLIC [id number] 04:04:00* Test Item Value Reference Range Interpretation [...] FOR DIALYSIS PATIENTS. Specimen markedly ictericHEPATIC FUNCTION [id number] 04:04:00* Test Item Value Reference Range Interpretation [...] Specimen slightly hemolyzed Specimen markedly ictericHEMOGLOBIN AND [id number] 01:37:00* Test Item Value Reference Range Interpretation Comments HEMOGLOBIN (BEAKER) (test code = 410) 7.7 GM/DL 13.7-17.5 L HEMATOCRIT (BEAKER) (test code = 411) 23.9 % 40.1-51.0 L POCT-GLUCOSE [id number] 00:12:00* Test Item Value Reference Range Interpretation Comments POC-GLUCOSE METER (BEAKER) (test code = 1538) 158 mg/dL 70-110 H TESTED AT [address] [address] SODIUM, RANDOM [id number] 20:36:00* Test Item Value Reference Range Interpretation Comments SODIUM URINE (BEAKER) (test code = 243) < meq/L Reference Range: No NormalsPOCT-GLUCOSE [id number] 20:24:00* Test Item Value Reference Range Interpretation Comments POC-GLUCOSE METER (BEAKER) (test code = 1538) 169 mg/dL 70-110 H TESTED AT [address] [address] HEMOGLOBIN AND [id number] 20:24:00* Test Item Value Reference Range Interpretation Comments HEMOGLOBIN (BEAKER) (test code = 410) 6.9 GM/DL 13.7-17.5 L HEMATOCRIT (BEAKER) (test code = 411) 21.1 % 40.1-51.0 L HEMOGLOBIN AND [id number] 18:35:00* Test Item Value Reference Range Interpretation Comments HEMOGLOBIN (BEAKER) (test code = 410) 6.7 GM/DL 13.7-17.5 L HEMATOCRIT (BEAKER) (test code = 411) 20.7 % 40.1-51.0 L YARI ANTIGEN WITH REFLEX TO [id number] 18:29:00* Test Item Value Reference Range Interpretation Comments YARI ANTIGEN (BEAKER) (test code = 1782) Positive YARI ANTIGEN [id number] 18:29:00* Test Item Value Reference Range Interpretation Comments YARI ANTIGEN TITER (BEAKER) (test code = 737) :2 POCT-GLUCOSE [id number] 17:43:00* Test Item Value Reference Range Interpretation Comments POC-GLUCOSE METER (BEAKER) (test code = 1538) 108 mg/dL 70-110 TESTED AT [address] [address] POCT-GLUCOSE [id number] 12:27:00* Test Item Value Reference Range Interpretation Comments POC-GLUCOSE METER (BEAKER) (test code = 1538) 152 mg/dL 70-110 H TESTED AT [address] [address] CBC W/PLT COUNT & AUTO [id number] 12:16:00* Test Item Value Reference Range Interpretation [...] 40.1-51.0 L RAD, CHEST, 1 VIEW, NON [id number] 09:28:00Reason for exam:->Pulmonary edema evaluationShould this be [...] MDReport Verified Date/Time: 06/28/2018 09:28:59 Reading Location: [facility] Radiology Reading Room - GLUCOSE [id number] 06:13:00* Test Item Value Reference Range Interpretation Comments POC-GLUCOSE METER (BEAKER) (test code = 1538) 123 mg/dL 70-110 H TESTED AT [facility] [address] [facility] [address] BASIC METABOLIC [id number] 05:57:00* Test Item Value Reference Range Interpretation [...] NOT APPLICABLE FOR DIALYSIS PATIENTS. Specimen markedly [id number] 05:56:00* Test Item Value Reference Range Interpretation Comments MAGNESIUM (BEAKER) (test code = 627) 2.3 mg/dL 1.6-2.6 HEPATIC FUNCTION [id number] 05:56:00* Test Item Value Reference Range Interpretation [...] 347) 180 U/L 6-55 H Specimen markedly [id number] 05:43:00* Test Item Value Reference Range Interpretation Comments PARTIAL THROMBOPLASTIN TIME (BEAKER) (test code = 760) 45.3 seconds 22.5-36.0 H PROTHROMBIN TIME/[id number] 05:42:00* Test Item Value Reference Range Interpretation Comments PROTIME (BEAKER) (test code = 759) 17.5 seconds 11.7-14.7 H INR (BEAKER) (test code = 370) 1.5 <=5.9 RECOMMENDED COUMADIN/WARFARIN INR THERAPY RANGESSTANDARD DOSE: 2.0 - 3.0 Inclu herb: PROPHYLAXIS for venous thrombosis, systemic embolization; TREATMENT for giulia ous thrombosis and/or pulmonary embolus.HIGH RISK: Target INR is 2.5-3.5 for pat ients with mechanical heart valves.POCT-GLUCOSE [id number] 00:23:00* Test Item Value Reference Range Interpretation Comments POC-GLUCOSE METER (BEAKER) (test code = 1538) 183 mg/dL 70-110 H TESTED AT [place] [address] HEMOGLOBIN AND [id number] 20:24:00* Test Item Value Reference Range Interpretation Comments HEMOGLOBIN (BEAKER) (test code = 410) 7.4 GM/DL 13.7-17.5 L HEMATOCRIT (BEAKER) (test code = 411) 22.3 % 40.1-51.0 L POCT-GLUCOSE [id number] 18:08:00* Test Item Value Reference Range Interpretation Comments POC-GLUCOSE METER (BEAKER) (test code = 1538) 171 mg/dL 70-110 H TESTED AT [place] [address] TISSUE [id number] 17:16:00Surgical Pathology Report Case: [id number] Authorizing Provider: Seven Tubbs MD Collected: 06/19/2018 1536 Ordering Location: [address] Received: 06/20/2018 0750 Pathologist: Jb Brock MD Specimen: Cecum, Cecal Ulcer Bx COLON, CECUM, ULCER, BIOPSY: - ATYPICAL LYMPHOID PROLIFERATION 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 Samm Arenas, [facility] Hematopathology, who concurs with the diagnosis. [id number] Cecal ulcer biops yThe specimen is received in a formalin-filled container and labeled with the p atient's information and labeled "cecal ulcer biopsy" and consists of a 0.2 cm f ragment of guajardo tissue, submitted entirely A1. CG/pl Performed.The following carlos tional immunohistochemical stains, were evaluated on the biopsy with appropriate controls:CD3, CD5, CD10, CD20, BCL-2, BCL-6, CyclinD1, Ki-67, [place], Lambda, PA X-5.CD3, CD5 and BCL-2 have similar patterns and highlight T lymphocytes. CD20 a nd PAX-5 highlights increased large, atypical appearing B cells. [place] and Santana da demonstrate polytypic plasma cells. [...] KI-67.Immunohistochemistry technical te sting was performed at [facility], Pathology Laboratory wh ere it was [...] and its performance c haracteristics determined by [facility], Pathology Laboratory. It has not been [...] to perform high complexity clinic al laboratory testing.[facility], Department of Pathology, [address] [place] [address], [facility], [facility] of [facility]ology, [address] [place] [address], [facility], Department of [facility], [address] [place] [address], b-TYPE NATRIURETIC FACTOR (BNP) 2018-06-27 13:44:00* Test Item Value Reference Range Interpretation Comments B-TYPE NATRIURETIC PEPTIDE (BEAKER) (test code = 700) 179 pg/mL 0-100 H HEMOGLOBIN AND [id number] 13:18:00* Test Item Value Reference Range Interpretation Comments HEMOGLOBIN (BEAKER) (test code = 410) 7.9 GM/DL 13.7-17.5 L HEMATOCRIT (BEAKER) (test code = 411) 23.6 % 40.1-51.0 L CBC W/PLT COUNT & AUTO [id number] 13:10:00* Test Item Value Reference Range Interpretation [...] IMPRESSION: No significant interval change. Signed: Roberth Camport Verified Date/Time: 06/27/2018 12:39:10 Reading Location: [facility] Radiology Reading Room -GLUCOSE [id number] 11:38:00 * Test Item Value Reference Range Interpretation Comments POC-GLUCOSE METER (BEAKER) (test code = 1538) 181 mg/dL 70-110 H TESTED AT [facility] [address] [facility] [address] HEMOGLOBIN AND [id number] 09:34:00* Test Item Value Reference Range Interpretation Comments HEMOGLOBIN (BEAKER) (test code = 410) 8.1 GM/DL 13.7-17.5 L HEMATOCRIT (BEAKER) (test code = 411) 24.9 % 40.1-51.0 L POCT-GLUCOSE [id number] 06:28:00* Test Item Value Reference Range Interpretation Comments POC-GLUCOSE METER (BEAKER) (test code = 1538) 161 mg/dL 70-110 H TESTED AT [facility] [address] [facility] [address] BASIC METABOLIC [id number] 06:04:00* Test Item Value Reference Range Interpretation [...] NOT APPLICABLE FOR DIALYSIS PATIENTS. Specimen markedly [id number] 06:00:00* Test Item Value Reference Range Interpretation Comments MAGNESIUM (BEAKER) (test code = 627) 1.9 mg/dL 1.6-2.6 HEPATIC FUNCTION [id number] 06:00:00* Test Item Value Reference Range Interpretation [...] 347) 170 U/L 6-55 H Specimen markedly [id number] 05:56:00* Test Item Value Reference Range Interpretation Comments PARTIAL THROMBOPLASTIN TIME (BEAKER) (test code = 760) 41.4 seconds 22.5-36.0 H PROTHROMBIN TIME/[id number] 05:55:00* Test Item Value Reference Range Interpretation [...] pat ients with mechanical heart valves.HEMOGLOBIN AND [id number] 05:33:00 * Test Item Value Reference Range Interpretation Comments HEMOGLOBIN (BEAKER) (test code = 410) 7.5 GM/DL 13.7-17.5 L HEMATOCRIT (BEAKER) (test code = 411) 23.3 % 40.1-51.0 L POCT-GLUCOSE [id number] 00:28:00* Test Item Value Reference Range Interpretation Comments POC-GLUCOSE METER (BEAKER) (test code = 1538) 153 mg/dL 70-110 H TESTED AT [facility] [address] [facility] [address] HEMOGLOBIN AND [id number] 00:15:00* Test Item Value Reference Range Interpretation Comments HEMOGLOBIN (BEAKER) (test code = 410) 6.8 GM/DL 13.7-17.5 L HEMATOCRIT (BEAKER) (test code = 411) 20.6 % 40.1-51.0 L HEMOGLOBIN AND [id number] 20:31:00* Test Item Value Reference Range Interpretation Comments HEMOGLOBIN (BEAKER) (test code = 410) 7.4 GM/DL 13.7-17.5 L HEMATOCRIT (BEAKER) (test code = 411) 22.5 % 40.1-51.0 L HEMOGLOBIN AND [id number] 18:54:00* Test Item Value Reference Range Interpretation Comments HEMOGLOBIN (BEAKER) (test code = 410) 7.4 GM/DL 13.7-17.5 L HEMATOCRIT (BEAKER) (test code = 411) 22.7 % 40.1-51.0 L POCT-GLUCOSE [id number] 18:17:00* Test Item Value Reference Range Interpretation Comments POC-GLUCOSE METER (BEAKER) (test code = 1538) 133 mg/dL 70-110 H TESTED AT [facility] [address] [facility] [address] [id number] 16:32:00* Test Item Value Reference Range Interpretation Comments FIBRINOGEN LEVEL (BEAKER) (test code = 658) 331 mg/dl 225-434 PT/[id number] 15:10:00* Test Item Value Reference Range Interpretation [...] pat ients with mechanical heart valves.HEMOGLOBIN AND [id number] 14:55:00 * Test Item Value Reference Range Interpretation Comments HEMOGLOBIN (BEAKER) (test code = 410) 7.7 GM/DL 13.7-17.5 L HEMATOCRIT (BEAKER) (test code = 411) 24.0 % 40.1-51.0 L CBC W/PLT COUNT & AUTO [id number] 14:09:00* Test Item Value Reference Range Interpretation [...] Received comment: User comments: Slide comments: BLOOD [id number] 14:03:00* Test Item Value Reference Range Interpretation Comments CULTURE (BEAKER) (test code = 1095) No growth in 5 days BLOOD [id number] 14:03:00* Test Item Value Reference Range Interpretation Comments CULTURE (BEAKER) (test code = 1095) No growth in 5 days POCT-GLUCOSE [id number] 11:51:00* Test Item Value Reference Range Interpretation Comments POC-GLUCOSE METER (BEAKER) (test code = 1538) 176 mg/dL 70-110 H TESTED AT [place] [id number] [facility] [address] HEMOGLOBIN AND [id number] 08:23:00* Test Item Value Reference Range Interpretation Comments HEMOGLOBIN (BEAKER) (test code = 410) 6.2 GM/DL 13.7-17.5 L HEMATOCRIT (BEAKER) (test code = 411) 18.9 % 40.1-51.0 L POCT-GLUCOSE [id number] 07:35:00* Test Item Value Reference Range Interpretation Comments POC-GLUCOSE METER (BEAKER) (test code = 1538) 172 mg/dL 70-110 H TESTED AT [facility] [address] [facility] [address] RAD, CHEST, 1 VIEW, NON [id number] 07:26:00Reason for exam:->Pulmonary edema evaluationShould this be [...] MDReport Verified Date/Time: 06/26/2018 07:26:15 Reading Location: [facility] Radiology Reading Room [id number] 05:04:00* Test Item Value Reference Range Interpretation Comments MAGNESIUM (BEAKER) (test code = 627) 1.9 mg/dL 1.6-2.6 BASIC METABOLIC [id number] 05:04:00* Test Item Value Reference Range Interpretation [...] FOR DIALYSIS PATIENTS. Specimen markedly ictericHEPATIC FUNCTION [id number] 05:04:00* Test Item Value Reference Range Interpretation [...] 347) 202 U/L 6-55 H Specimen markedly [id number] 04:54:00* Test Item Value Reference Range Interpretation Comments PARTIAL THROMBOPLASTIN TIME (BEAKER) (test code = 760) 39.3 seconds 22.5-36.0 H PROTHROMBIN TIME/[id number] 04:53:00* Test Item Value Reference Range Interpretation Comments PROTIME (BEAKER) (test code = 759) 18.3 seconds 11.7-14.7 H INR (BEAKER) (test code = 370) 1.6 <=5.9 RECOMMENDED COUMADIN/WARFARIN INR THERAPY RANGESSTANDARD DOSE: 2.0 - 3.0 Inclu herb: PROPHYLAXIS for venous thrombosis, systemic embolization; TREATMENT for giluia ous thrombosis and/or pulmonary embolus.HIGH RISK: Target INR is 2.5-3.5 for pat ients with mechanical heart valves.HEMOGLOBIN AND [id number] 04:48:00 * Test Item Value Reference Range Interpretation Comments HEMOGLOBIN (BEAKER) (test code = 410) 7.2 GM/DL 13.7-17.5 L HEMATOCRIT (BEAKER) (test code = 411) 22.4 % 40.1-51.0 L HEMOGLOBIN AND [id number] 00:55:00* Test Item Value Reference Range Interpretation Comments HEMOGLOBIN (BEAKER) (test code = 410) 7.9 GM/DL 13.7-17.5 L HEMATOCRIT (BEAKER) (test code = 411) 24.4 % 40.1-51.0 L POCT-GLUCOSE [id number] 00:11:00* Test Item Value Reference Range Interpretation Comments POC-GLUCOSE METER (BEAKER) (test code = 1538) 130 mg/dL 70-110 H TESTED AT [facility] [address] [facility] [address] HEMOGLOBIN AND [id number] 21:55:00* Test Item Value Reference Range Interpretation Comments HEMOGLOBIN (BEAKER) (test code = 410) 7.8 GM/DL 13.7-17.5 L HEMATOCRIT (BEAKER) (test code = 411) 24.7 % 40.1-51.0 L HEMOGLOBIN AND [id number] 19:15:00* Test Item Value Reference Range Interpretation Comments HEMOGLOBIN (BEAKER) (test code = 410) 8.2 GM/DL 13.7-17.5 L HEMATOCRIT (BEAKER) (test code = 411) 25.5 % 40.1-51.0 L POCT-GLUCOSE [id number] 18:49:00* Test Item Value Reference Range Interpretation Comments POC-GLUCOSE METER (BEAKER) (test code = 1538) 159 mg/dL 70-110 H TESTED AT [facility] [address] [facility] [address] POCT-GLUCOSE [id number] 17:29:00* Test Item Value Reference Range Interpretation Comments POC-GLUCOSE METER (BEAKER) (test code = 1538) 104 mg/dL 70-110 TESTED AT [place] [id number] [facility] [address] CT, CTA [id number] 14:14:00FINAL REPORT TECHNIQUE: CTA of the abdomen [...] Buster Allen MDReport Verified Date/Time: 06/25/2018 14:14:40 Readi loki Location: [facility] B1 C013Y CT Body Reading Room GLOBIN AND [id number] 12:47:00* Test Item Value Reference Range Interpretation Comments HEMOGLOBIN (BEAKER) (test code = 410) 7.9 GM/DL 13.7-17.5 L HEMATOCRIT (BEAKER) (test code = 411) 24.6 % 40.1-51.0 L POCT-GLUCOSE [id number] 12:19:00* Test Item Value Reference Range Interpretation Comments POC-GLUCOSE METER (BEAKER) (test code = 1538) 161 mg/dL 70-110 H TESTED AT [facility] [address] [place] [address] CBC W/PLT COUNT & AUTO [id number] 10:47:00* Test Item Value Reference Range Interpretation [...] 40.1-51.0 L RAD, CHEST, 1 VIEW, NON [id number] 07:29:00Reason for exam:->Pulmonary edema evaluationShould this be [...] Sloan Verified Date/Time: 06/25/2018 07:29:59 Reading Location: [facility] Radiology Reading Room [facility] signed by: ANDREW SLOAN M.D. on 06/25/2018 07:29 AM POCT-GLUCOSE METER 2018-06-25 06:28:00* Test Item Value Reference Range Interpretation Comments POC-GLUCOSE METER (BEAKER) (test code = 1538) 174 mg/dL 70-110 H TESTED AT [facility] [address] [facility] [address] [id number] 05:46:00* Test Item Value Reference Range Interpretation Comments PARTIAL THROMBOPLASTIN TIME (BEAKER) (test code = 760) 52.2 seconds 22.5-36.0 H PROTHROMBIN [id number] 05:44:00* Test Item Value Reference Range Interpretation Comments PROTIME (BEAKER) (test code = 759) 18.3 seconds 11.7-14.7 H INR (BEAKER) (test code = 370) 1.6 <=5.9 RECOMMENDED COUMADIN/WARFARIN INR THERAPY RANGESSTANDARD DOSE: 2.0 - 3.0 Inclu herb: PROPHYLAXIS for venous thrombosis, systemic embolization; TREATMENT for giulia ous thrombosis and/or pulmonary embolus.HIGH RISK: Target INR is 2.5-3.5 for pat ients with mechanical heart valves.[id number] 05:41:00* Test Item Value Reference Range Interpretation Comments MAGNESIUM (BEAKER) (test code = 627) 2.2 mg/dL 1.6-2.6 BASIC METABOLIC [id number] 05:41:00* Test Item Value Reference Range Interpretation [...] FOR DIALYSIS PATIENTS. Specimen markedly ictericHEPATIC FUNCTION [id number] 05:41:00* Test Item Value Reference Range Interpretation [...] 24 U/L 29-20 0 L BLOOD GAS, [id number] 05:35:00* Test Item Value Reference Range Interpretation [...] code = 1819) 40.0 % LACTIC ACID, [id number] 05:32:00* Test Item Value Reference Range Interpretation Comments LACTATE BLOOD ARTERIAL (2) (BEAKER) (test code = 2874) 0.5 mmol/L 0.5-2.2 Specimen markedly ictericPOCT-GLUCOSE [id number] 00:35:00* Test Item Value Reference Range Interpretation Comments POC-GLUCOSE METER (BEAKER) (test code = 1538) 140 mg/dL 70-110 H TESTED AT [facility] [address] [facility] [address] HEMOGLOBIN AND [id number] 00:32:00* Test Item Value Reference Range Interpretation Comments HEMOGLOBIN (BEAKER) (test code = 410) 8.3 GM/DL 13.7-17.5 L HEMATOCRIT (BEAKER) (test code = 411) 25.6 % 40.1-51.0 L POCT-GLUCOSE [id number] 18:59:00* Test Item Value Reference Range Interpretation Comments POC-GLUCOSE METER (BEAKER) (test code = 1538) 124 mg/dL 70-110 H TESTED AT [place] [id number] [facility] [address] HEMOGLOBIN AND [id number] 18:36:00* Test Item Value Reference Range Interpretation Comments HEMOGLOBIN (BEAKER) (test code = 410) 8.1 GM/DL 13.7-17.5 L HEMATOCRIT (BEAKER) (test code = 411) 25.1 % 40.1-51.0 L POCT-GLUCOSE [id number] 12:21:00* Test Item Value Reference Range Interpretation Comments POC-GLUCOSE METER (BEAKER) (test code = 1538) 133 mg/dL 70-110 H TESTED AT [address] [address] RAD, CHEST, 1 VIEW, NON [id number] 09:38:00Reason for exam:->Pulmonary edema evaluationShould this be performed at the bedside?->YesFINAL REPORT Comparison: 06/23/2018 TECHNIQUE: Single view of the chest FINDINGS: Lung volumes are low. There is mild vascular congestion. No gross new lung parenchymal changes. Support lines and tubes are stable. Signed: Roberth Camp Verified Date/Time: 06/24/2018 09:38:51 Reading Location: [facility] Radiology Reading Room W/PLT COUNT & AUTO [id number] 09:00:00* Test Item Value Reference Range Interpretation [...] Received comment: User comments: Slide comments: POCT-GLUCOSE [id number] 06:48:00* Test Item Value Reference Range Interpretation Comments POC-GLUCOSE METER (BEAKER) (test code = 1538) 122 mg/dL 70-110 H TESTED AT [place] [id number] [facility] [address] POCT-GLUCOSE [id number] 05:09:00* Test Item Value Reference Range Interpretation Comments POC-GLUCOSE METER (BEAKER) (test code = 1538) 138 mg/dL 70-110 H TESTED AT [place] [id number] [facility] [address] BLOOD GAS, [id number] 04:42:00* Test Item Value Reference Range Interpretation [...] (BEAKER) (test code = 1819) 40.0 % [id number] 04:32:00* Test Item Value Reference Range Interpretation Comments MAGNESIUM (BEAKER) (test code = 627) 2.0 mg/dL 1.6-2.6 BASIC METABOLIC [id number] 04:32:00* Test Item Value Reference Range Interpretation [...] FOR DIALYSIS PATIENTS. Specimen markedly ictericHEPATIC FUNCTION [id number] 04:32:00* Test Item Value Reference Range Interpretation [...] U/L 6-55 H Specimen markedly ictericLACTIC ACID, [id number] 04:22:00* Test Item Value Reference Range Interpretation Comments LACTATE BLOOD ARTERIAL (2) (BEAKER) (test code = 2874) 0.6 mmol/L 0.5-2.2 Specimen moderately [id number] 04:17:00* Test Item Value Reference Range Interpretation Comments PARTIAL THROMBOPLASTIN TIME (BEAKER) (test code = 760) 50.9 seconds 22.5-36.0 H PROTHROMBIN [id number] 04:16:00* Test Item Value Reference Range Interpretation Comments PROTIME (BEAKER) (test code = 759) 18.0 seconds 11.7-14.7 H INR (BEAKER) (test code = 370) 1.6 <=5.9 RECOMMENDED COUMADIN/WARFARIN INR THERAPY RANGESSTANDARD DOSE: 2.0 - 3.0 Inclu herb: PROPHYLAXIS for venous thrombosis, systemic embolization; TREATMENT for giulia ous thrombosis and/or pulmonary embolus.HIGH RISK: Target INR is 2.5-3.5 for pat ients with mechanical heart valves.POCT-GLUCOSE [id number] 00:29:00* Test Item Value Reference Range Interpretation Comments POC-GLUCOSE METER (BEAKER) (test code = 1538) 113 mg/dL 70-110 H TESTED AT [facility] [address] [facility] [address] POCT-GLUCOSE [id number] 18:51:00* Test Item Value Reference Range Interpretation Comments POC-GLUCOSE METER (BEAKER) (test code = 1538) 108 mg/dL 70-110 TESTED AT [facility] [address] [facility] [address] (CELLAVISION MANUAL DIFF)2018-06-23 16:53:00* Test Item Value [...] Slide comments: CBC W/PLT COUNT & AUTO [id number] 16:33:00* Test Item Value Reference Range Interpretation [...] 0-1 H CBC W/PLT COUNT & AUTO [id number] 13:52:00* Test Item Value Reference Range Interpretation [...] (BEAKER) (test code = 481) 1+ few GILLES CELLS (BEAKER) (test code = 474) 1+ few PLATELET CONCENTRATION (CELLAVISION)(BEAKER) (test code = 3438) Cheryl quate Received comment: User comments: Slide comments: POCT-GLUCOSE [id number] 11:56:00* Test Item Value Reference Range Interpretation Comments POC-GLUCOSE METER (BEAKER) (test code = 1538) 115 mg/dL 70-110 H TESTED AT [facility] [address] [facility] [address] [id number] 07:07:00* Test Item Value Reference Range Interpretation Comments MAGNESIUM (BEAKER) (test code = 627) 1.9 mg/dL 1.6-2.6 BASIC METABOLIC [id number] 07:07:00* Test Item Value Reference Range Interpretation [...] FOR DIALYSIS PATIENTS. Specimen markedly ictericHEPATIC FUNCTION [id number] 07:07:00* Test Item Value Reference Range Interpretation [...] U/L 6-55 H Specimen markedly ictericHEMOGLOBIN AND [id number] 06:51:00* Test Item Value Reference Range Interpretation Comments HEMOGLOBIN (BEAKER) (test code = 410) 8.2 GM/DL 13.7-17.5 L HEMATOCRIT (BEAKER) (test code = 411) 25.0 % 40.1-51.0 L POCT-GLUCOSE [id number] 06:44:00* Test Item Value Reference Range Interpretation Comments POC-GLUCOSE METER (BEAKER) (test code = 1538) 121 mg/dL 70-110 H TESTED AT [facility] [address] [facility] [address] LACTIC ACID, [id number] 06:44:00* Test Item Value Reference Range Interpretation Comments LACTATE BLOOD ARTERIAL (2) (BEAKER) (test code = 2874) 0.7 mmol/L 0.5-2.2 Specimen markedly [id number] 06:40:00* Test Item Value Reference Range Interpretation Comments PARTIAL THROMBOPLASTIN TIME (BEAKER) (test code = 760) 44.7 seconds 22.5-36.0 H PROTHROMBIN TIME/[id number] 06:39:00* Test Item Value Reference Range Interpretation [...] pat ients with mechanical heart valves.BLOOD GAS, [id number] 06:36:00* Test Item Value Reference Range Interpretation [...] 40.0 % RAD, CHEST, 1 VIEW, NON [id number] 04:52:00Reason for exam:->Pulmonary edema evaluationShould this be [...] Stable surgical changes.Additional findings: None. Signed: Adri Avendañoort Verified Date/Time: 06/23/2018 04:52:15 Reading Location: [address] Neuro Reading Room U/S, ABDOMINAL, [id number] 03:15:00Abdomen limited area? Add comment if clarification [...] MDReport Verified Date/Time: 06/23/2018 03:15:49 Reading Location: [facility] C013V Neuro Reading Room GLOBIN AND [id number] 01:05:00* Test Item Value Reference Range Interpretation Comments HEMOGLOBIN (BEAKER) (test code = 410) 8.4 GM/DL 13.7-17.5 L HEMATOCRIT (BEAKER) (test code = 411) 25.9 % 40.1-51.0 L POCT-GLUCOSE [id number] 00:43:00* Test Item Value Reference Range Interpretation Comments POC-GLUCOSE METER (BEAKER) (test code = 1538) 180 mg/dL 70-110 H TESTED AT [address] [address] HEMOGLOBIN AND [id number] 21:03:00* Test Item Value Reference Range Interpretation Comments HEMOGLOBIN (BEAKER) (test code = 410) 8.6 GM/DL 13.7-17.5 L HEMATOCRIT (BEAKER) (test code = 411) 25.8 % 40.1-51.0 L POCT-GLUCOSE [id number] 18:20:00* Test Item Value Reference Range Interpretation Comments POC-GLUCOSE METER (BEAKER) (test code = 1538) 265 mg/dL 70-110 H TESTED AT [place] [id number] [facility] [address] HEMOGLOBIN AND [id number] 12:41:00* Test Item Value Reference Range Interpretation Comments HEMOGLOBIN (BEAKER) (test code = 410) 7.6 GM/DL 13.7-17.5 L HEMATOCRIT (BEAKER) (test code = 411) 23.4 % 40.1-51.0 L POCT-GLUCOSE [id number] 12:29:00* Test Item Value Reference Range Interpretation Comments POC-GLUCOSE METER (BEAKER) (test code = 1538) 150 mg/dL 70-110 H TESTED AT [facility] [address] [facility] [address] RAD, CHEST, 1 VIEW, NON [id number] 08:40:00Reason for exam:->Pulmonary edema evaluationShould this be [...] [place] Verified Date/Time: 06/22/2018 08:40:31 Reading Location: [address] Transitional Reading Room - GLUCOSE [id number] 06:33:00* Test Item Value Reference Range Interpretation Comments POC-GLUCOSE METER (BEAKER) (test code = 1538) 159 mg/dL 70-110 H TESTED AT [place] [id number] [facility] [address] LACTIC ACID, [id number] 04:16:00* Test Item Value Reference Range Interpretation Comments LACTATE BLOOD ARTERIAL (2) (BEAKER) (test code = 2874) 0.5 mmol/L 0.5-2.2 Specimen markedly ictericBASIC METABOLIC [id number] 04:12:00* Test Item Value Reference Range Interpretation [...] APPLICABLE FOR DIALYSIS PATIENTS. Specimen markedly ictericCALCIUM, [id number] 04:10:00* Test Item Value Reference Range Interpretation Comments CALCIUM IONIZED (BEAKER) (test code = 698) 1.28 mmol/L 1.12-1.27 H PH, BLOOD (BEAKER) (test code = 1810) 7.41 Check serum Ionized Calcium level after 4 hours after IV Calcium replacement. BLOOD GAS, [id number] 04:05:00* Test Item Value Reference Range Interpretation [...] 40.0 % CBC W/PLT COUNT & AUTO [id number] 04:02:00* Test Item Value Reference Range Interpretation [...] code = 2801) 4 % 0-1 H [id number] 03:56:00* Test Item Value Reference Range Interpretation Comments MAGNESIUM (BEAKER) (test code = 627) 2.0 mg/dL 1.6-2.6 HEPATIC FUNCTION [id number] 03:56:00* Test Item Value Reference Range Interpretation [...] 347) 136 U/L 6-55 H Specimen markedly [id number] 03:53:00* Test Item Value Reference Range Interpretation Comments PARTIAL THROMBOPLASTIN TIME (BEAKER) (test code = 760) 40.4 seconds 22.5-36.0 H PROTHROMBIN TIME/[id number] 03:52:00* Test Item Value Reference Range Interpretation [...] pat ients with mechanical heart valves.HEMOGLOBIN AND [id number] 03:41:00 * Test Item Value Reference Range Interpretation Comments HEMOGLOBIN (BEAKER) (test code = 410) 8.1 GM/DL 13.7-17.5 L HEMATOCRIT (BEAKER) (test code = 411) 24.4 % 40.1-51.0 L BLOOD [id number] 01:25:00* Test Item Value Reference Range Interpretation Comments CULTURE (BEAKER) (test code = 1095) No growth in 5 days BLOOD [id number] 01:25:00* Test Item Value Reference Range Interpretation Comments CULTURE (BEAKER) (test code = 1095) No growth in 5 days HEMOGLOBIN AND [id number] 00:32:00* Test Item Value Reference Range Interpretation Comments HEMOGLOBIN (BEAKER) (test code = 410) 9.1 GM/DL 13.7-17.5 L HEMATOCRIT (BEAKER) (test code = 411) 27.2 % 40.1-51.0 L POCT-GLUCOSE [id number] 00:18:00* Test Item Value Reference Range Interpretation Comments POC-GLUCOSE METER (BEAKER) (test code = 1538) 189 mg/dL 70-110 H TESTED AT [facility] [address] [facility] [address] ANG, VISCERAL [id number] 22:13:00FINAL REPORT Mesenteric Arteriography Clinical History:GI bleed [...] inch guide wire was advanced. A 5 Algerian sheath was util ized. A 5 rwandan Baker catheter was placed selectively into the [...] Rogel Verified Date/Time: 06/21/2018 22:13:37 Reading Location: [facility] P048 A [facility] Body Reading Room Electronically signed by: KAI ROGEL M.D. on 05/28 10:13 PM RAD, ABDOMEN/KUB, 1 VIEW [id number] 20:57:00Reason for exam:-> abdominal distention sp coilsFINAL [...] MDReport Verified Date/Time: 06/21/2018 20:57:09 Reading Location: [facility] C013W Consult Reading Room W/PLT COUNT & AUTO [id number] 18:35:00* Test Item Value Reference Range Interpretation [...] Received comment: User comments: Slide comments: POCT-GLUCOSE [id number] 17:53:00* Test Item Value Reference Range Interpretation Comments POC-GLUCOSE METER (BEAKER) (test code = 1538) 212 mg/dL 70-110 H TESTED AT [address] [address] BASIC METABOLIC [id number] 17:52:00* Test Item Value Reference Range Interpretation [...] FOR DIALYSIS PATIENTS. Specimen markedly ictericLACTIC ACID, [id number] 17:45:00* Test Item Value Reference Range Interpretation Comments LACTATE BLOOD ARTERIAL (2) (BEAKER) (test code = 2874) 0.6 mmol/L 0.5-2.2 Specimen markedly ictericHEMOGLOBIN AND [id number] 17:32:00* Test Item Value Reference Range Interpretation Comments HEMOGLOBIN (BEAKER) (test code = 410) 7.4 GM/DL 13.7-17.5 L HEMATOCRIT (BEAKER) (test code = 411) 22.4 % 40.1-51.0 L BLOOD GAS, [id number] 17:25:00* Test Item Value Reference Range Interpretation [...] 0.0-5.0 H RAD, CHEST, 1 VIEW, NON [id number] 14:14:00Reason for exam:->line placementShould this be performed [...] MDReport Verified Date/Time: 06/21/2018 14:14:23 Reading Location: [address] Consult Reading Room GLOBIN AND [id number] 14:12:00* Test Item Value Reference Range Interpretation Comments HEMOGLOBIN (BEAKER) (test code = 410) 6.3 GM/DL 13.7-17.5 L HEMATOCRIT (BEAKER) (test code = 411) 19.7 % 40.1-51.0 L PROTHROMBIN TIME/[id number] 14:10:00* Test Item Value Reference Range Interpretation Comments PROTIME (BEAKER) (test code = 759) 18.5 seconds 11.7-14.7 H INR (BEAKER) (test code = 370) 1.5 <=5.9 RECOMMENDED COUMADIN/WARFARIN INR THERAPY RANGESSTANDARD DOSE: 2.0 - 3.0 Inclu herb: PROPHYLAXIS for venous thrombosis, systemic embolization; TREATMENT for giulia ous thrombosis and/or pulmonary embolus.HIGH RISK: Target INR is 2.5-3.5 for pat ients with mechanical heart valves.[id number] 14:10:00* Test Item Value Reference Range Interpretation Comments FIBRINOGEN LEVEL (BEAKER) (test code = 658) 405 mg/dl 225-434 [id number] 14:10:00* Test Item Value Reference Range Interpretation Comments PARTIAL THROMBOPLASTIN TIME (BEAKER) (test code = 760) 43.9 seconds 22.5-36.0 H LACTIC ACID, [id number] 13:57:00* Test Item Value Reference Range Interpretation Comments LACTATE BLOOD ARTERIAL (2) (BEAKER) (test code = 2874) 0.8 mmol/L 0.5-2.2 Specimen markedly ictericPLATELET [id number] 13:47:00* Test Item Value Reference Range Interpretation Comments PLATELET COUNT (BEAKER) (test code = 756) 347 K/CU MM 150-450 CALCIUM, [id number] 13:46:00* Test Item Value Reference Range Interpretation Comments CALCIUM IONIZED (BEAKER) (test code = 698) 1.03 mmol/L 1.12-1.27 L PH, BLOOD (BEAKER) (test code = 1810) 7.40 POTASSIUM-STAT [id number] 13:45:00* Test Item Value Reference Range Interpretation Comments POTASSIUM (BEAKER) (test code = 379) 3.3 meq/L 3.6-5.5 L GLUCOSE-STAT [id number] 13:45:00* Test Item Value Reference Range Interpretation Comments GLUCOSE RANDOM (BEAKER) (test code = 652) 213 mg/dL 70-110 H HGB/HCT (H&H) - STAT [id number] 13:45:00* Test Item Value Reference Range Interpretation Comments HEMOGLOBIN (BEAKER) (test code = 410) 6.4 g/dL 13.0-16.8 L HEMATOCRIT (BEAKER) (test code = 411) 19.0 % 40.0-50.0 L BLOOD GAS, [id number] 13:45:00* Test Item Value Reference Range Interpretation [...] code = 1819) 40.0 % SODIUM NA-STAT [id number] 13:44:00* Test Item Value Reference Range Interpretation Comments SODIUM (BEAKER) (test code = 381) 142 meq/L 135-148 [id number] 12:39:00* Test Item Value Reference Range Interpretation Comments PROCALCITONIN (BEAKER) (test code = 3036) 3.47 ng/mL <0.05 H SEPSIS RISK (ng/mL)Low: 0.05-0.50Intermediate: 0.51-2.00High: > =2.01POCT-GLUCOSE [id number] 12:37:00* Test Item Value Reference Range Interpretation Comments POC-GLUCOSE METER (BEAKER) (test code = 1538) 242 mg/dL 70-110 H TESTED AT [facility] [address] [facility] [address] LACTIC ACID, [id number] 12:37:00* Test Item Value Reference Range Interpretation Comments LACTATE BLOOD ARTERIAL (2) (BEAKER) (test code = 2874) 1.0 mmol/L 0.5-2.2 Specimen markedly ictericBLOOD GAS, [id number] 12:23:00* Test Item Value Reference Range Interpretation [...] code = 1819) 40.0 % HEMOGLOBIN AND [id number] 11:40:00* Test Item Value Reference Range Interpretation Comments HEMOGLOBIN (BEAKER) (test code = 410) 7.3 GM/DL 13.7-17.5 L HEMATOCRIT (BEAKER) (test code = 411) 22.6 % 40.1-51.0 L URINALYSIS W/ REFLEX URINE [id number] 11:19:00* Test Item Value Reference Range Interpretation [...] SOURCE(BEAKER) (test code = 2795) OXYGEN SATURATION, [id number] 11:10:00* Test Item Value Reference Range Interpretation Comments O2 SATURATION (MEASURED) (BEAKER) (test code = 1455) 63.5 % POCT-GLUCOSE [id number] 09:37:00* Test Item Value Reference Range Interpretation Comments POC-GLUCOSE METER (BEAKER) (test code = 1538) 258 mg/dL 70-110 H TESTED AT [facility] [address] [facility] [address] CBC W/PLT COUNT & AUTO [id number] 08:40:00* Test Item Value Reference Range Interpretation [...] in the right lung base. Signed: Andrew Sloanepjane Verified Date/Time: 06/21/2018 07:46:59 Reading Location: [facility] Radiology Reading Room TIC FUNCTION [id number] 04:40:00* Test Item Value Reference Range Interpretation [...] U/L 6-55 H Specimen markedly ictericBASIC METABOLIC [id number] 04:40:00* Test Item Value Reference Range Interpretation [...] NOT APPLICABLE FOR DIALYSIS PATIENTS. Specimen markedly [id number] 04:26:00* Test Item Value Reference Range Interpretation Comments MAGNESIUM (BEAKER) (test code = 627) 2.1 mg/dL 1.6-2.6 LACTIC ACID, [id number] 04:17:00* Test Item Value Reference Range Interpretation Comments LACTATE BLOOD ARTERIAL (2) (BEAKER) (test code = 2874) 1.0 mmol/L 0.5-2.2 Specimen markedly [id number] 04:12:00* Test Item Value Reference Range Interpretation Comments PARTIAL THROMBOPLASTIN TIME (BEAKER) (test code = 760) 47.7 seconds 22.5-36.0 H PROTHROMBIN TIME/[id number] 04:11:00* Test Item Value Reference Range Interpretation [...] pat ients with mechanical heart valves.BLOOD GAS, [id number] 03:57:00* Test Item Value Reference Range Interpretation [...] (BEAKER) (test code = 1819) 40.0 % [id number] 01:01:00* Test Item Value Reference Range Interpretation Comments POTASSIUM (BEAKER) (test code = 379) 3.4 meq/L 3.5-5.1 L PRN - repeat glucose levels every 1 hour or as specified by insulin titration or ders until glucose level is less than 450 mg/dLCheck Serum Potassium level 2 roxy rs after oral potassium replacement completed or 30 min after intravenous potass ium replacement.[id number] 01:01:00* Test Item Value Reference Range Interpretation Comments MAGNESIUM (BEAKER) (test code = 627) 2.0 mg/dL 1.6-2.6 PRN - repeat glucose levels every 1 hour or as specified by insulin titration or ders until glucose level is less than 450 mg/dLCheck Serum Potassium level 2 roxy rs after oral potassium replacement completed or 30 min after intravenous potass ium replacement.[id number] 01:01:00* Test Item Value Reference Range Interpretation Comments GLUCOSE RANDOM (BEAKER) (test code = 652) 220 mg/dL 70-105 H PRN - repeat glucose levels every 1 hour or as specified by insulin titration or ders until glucose level is less than 450 mg/dLCheck Serum Potassium level 2 roxy rs after oral potassium replacement completed or 30 min after intravenous potass ium replacement.CALCIUM, [id number] 00:47:00* Test Item Value Reference Range Interpretation Comments CALCIUM IONIZED (BEAKER) (test code = 698) 1.05 mmol/L 1.12-1.27 L PH, BLOOD (BEAKER) (test code = 1810) 7.48 Check serum Ionized Calcium level after 4 hours after IV Calcium replacement. BLOOD GAS, [id number] 21:09:00* Test Item Value Reference Range Interpretation [...] code = 1819) 40.0 % Before ventPOCT-GLUCOSE [id number] 17:55:00* Test Item Value Reference Range Interpretation Comments POC-GLUCOSE METER (BEAKER) (test code = 1538) 254 mg/dL 70-110 H TESTED AT [facility] [address] [facility] [address] BASIC METABOLIC [id number] 17:37:00* Test Item Value Reference Range Interpretation [...] FOR DIALYSIS PATIENTS. Specimen markedly ictericHEMOGLOBIN AND [id number] 17:18:00* Test Item Value Reference Range Interpretation Comments HEMOGLOBIN (BEAKER) (test code = 410) 8.2 GM/DL 13.7-17.5 L HEMATOCRIT (BEAKER) (test code = 411) 24.9 % 40.1-51.0 L CALCIUM, [id number] 17:14:00* Test Item Value Reference Range Interpretation Comments CALCIUM IONIZED (BEAKER) (test code = 698) 1.04 mmol/L 1.12-1.27 L PH, BLOOD (BEAKER) (test code = 1810) 7.49 Check serum Ionized Calcium level after 4 hours after IV Calcium replacement. POCT-GLUCOSE [id number] 17:00:00* Test Item Value Reference Range Interpretation Comments POC-GLUCOSE METER (BEAKER) (test code = 1538) 238 mg/dL 70-110 H TESTED AT [address] [address] POCT-GLUCOSE [id number] 11:59:00* Test Item Value Reference Range Interpretation Comments POC-GLUCOSE METER (BEAKER) (test code = 1538) 199 mg/dL 70-110 H TESTED AT [address] [address] BASIC METABOLIC [id number] 10:07:00* Test Item Value Reference Range Interpretation [...] FOR DIALYSIS PATIENTS. Specimen markedly ictericHEMOGLOBIN AND [id number] 09:56:00* Test Item Value Reference Range Interpretation Comments HEMOGLOBIN (BEAKER) (test code = 410) 8.2 GM/DL 13.7-17.5 L HEMATOCRIT (BEAKER) (test code = 411) 24.9 % 40.1-51.0 L SPUTUM CULTURE + GRAM [id number] 09:21:00* Test Item Value Reference Range Interpretation Comments CULTURE (BEAKER) (test code = 1095) <1+ Normal respiratory chase pr esent GRAM STAIN RESULT (BEAKER) (test code = 1123) <1+ WBCs GRAM STAIN RESULT (BEAKER) (test code = 50960) 0-5 epithelial cells GRAM STAIN RESULT (BEAKER) (test code = 65744) No organisms seen CBC W/PLT COUNT & AUTO [id number] 08:52:00* Test Item Value Reference Range Interpretation [...] quate Received comment: User comments: Slide comments: [id number] 08:27:00* Test Item Value Reference Range Interpretation Comments T3 TOTAL (BEAKER) (test code = 656) 55 ng/dL 48-159 CALCIUM, [id number] 05:17:00* Test Item Value Reference Range Interpretation Comments CALCIUM IONIZED (BEAKER) (test code = 698) 1.01 mmol/L 1.12-1.27 L PH, BLOOD (BEAKER) (test code = 1810) 7.43 HEPATIC FUNCTION [id number] 05:05:00* Test Item Value Reference Range Interpretation [...] U/L 6-55 H Specimen markedly ictericBASIC METABOLIC [id number] 05:05:00* Test Item Value Reference Range Interpretation [...] NOT APPLICABLE FOR DIALYSIS PATIENTS. Specimen markedly [id number] 05:04:00* Test Item Value Reference Range Interpretation Comments MAGNESIUM (BEAKER) (test code = 627) 2.2 mg/dL 1.6-2.6 RAD, CHEST, 1 VIEW, NON [id number] 04:59:00Reason for exam:->Pulmonary edema evaluationShould this be [...] Avendaño Verified Date/Time: 06/20/2018 04:59:55 Reading Location: [address] Neuro Reading Room [id number] 04:44:00* Test Item Value Reference Range Interpretation Comments PARTIAL THROMBOPLASTIN TIME (BEAKER) (test code = 760) 45.0 seconds 22.5-36.0 H PROTHROMBIN TIME/[id number] 04:43:00* Test Item Value Reference Range Interpretation [...] pat ients with mechanical heart valves.LACTIC ACID, [id number] 04:41:00* Test Item Value Reference Range Interpretation Comments LACTATE BLOOD ARTERIAL (2) (BEAKER) (test code = 2874) 0.6 mmol/L 0.5-2.2 Specimen markedly ictericBLOOD GAS, [id number] 04:29:00* Test Item Value Reference Range Interpretation [...] code = 1819) 40.0 % BASIC METABOLIC [id number] 01:12:00* Test Item Value Reference Range Interpretation [...] FOR DIALYSIS PATIENTS. Specimen markedly ictericHEMOGLOBIN AND [id number] 00:24:00* Test Item Value Reference Range Interpretation Comments HEMOGLOBIN (BEAKER) (test code = 410) 8.3 GM/DL 13.7-17.5 L HEMATOCRIT (BEAKER) (test code = 411) 25.0 % 40.1-51.0 L POCT-GLUCOSE [id number] 00:18:00* Test Item Value Reference Range Interpretation Comments POC-GLUCOSE METER (BEAKER) (test code = 1538) 233 mg/dL 70-110 H TESTED AT [facility] [address] [facility] [address] HEMOGLOBIN AND [id number] 20:18:00* Test Item Value Reference Range Interpretation Comments HEMOGLOBIN (BEAKER) (test code = 410) 8.4 GM/DL 13.7-17.5 L HEMATOCRIT (BEAKER) (test code = 411) 25.0 % 40.1-51.0 L BASIC METABOLIC [id number] 19:06:00* Test Item Value Reference Range Interpretation [...] FOR DIALYSIS PATIENTS. Specimen markedly ictericBASIC METABOLIC [id number] 19:06:00* Test Item Value Reference Range Interpretation [...] FOR DIALYSIS PATIENTS. Specimen markedly ictericHEMOGLOBIN AND [id number] 18:48:00* Test Item Value Reference Range Interpretation Comments HEMOGLOBIN (BEAKER) (test code = 410) 8.3 GM/DL 13.7-17.5 L HEMATOCRIT (BEAKER) (test code = 411) 25.7 % 40.1-51.0 L POCT-GLUCOSE [id number] 17:33:00* Test Item Value Reference Range Interpretation Comments POC-GLUCOSE METER (BEAKER) (test code = 1538) 193 mg/dL 70-110 H TESTED AT [facility] [address] [facility] [address] CYTOMEGALOVIRUS ANTIBODY, [id number] 14:16:00* Test Item Value Reference Range Interpretation Comments CYTOMEGALOVIRUS, IGG (BEAKER) (test code = 3429) Negative Negat mumtaz, Equivocal CMV IgG Result Interpretation: </= 0.8 Al Negative 0.9-1.0 Al Equivocal > /=1.1 Al PositiveCYTOMEGALOVIRUS ANTIBODY, [id number] 14:16:00* Test Item Value Reference Range Interpretation Comments CYTOMEGALOVIRUS IGM ANTIBODY (BEAKER) (test code = 3437) Neg ative Negative, Equivocal CMV IgM Result Interpretation: </= 0.8 Al Negative 0.9-1.0 Al Equivocal > /= 1.1 Al PositiveEBV ANTIBODY, [id number] 14:16:00* Test Item Value Reference Range Interpretation Comments ALEX LARES VIRAL CAPSID ANTIGEN IGG (BEAKER) (test code = 3415) Positive Negative, Equivocal A Alex Lares Viral Capsid Antigen IgG Result Interpretation: </= 0.8 Al Negative 0.9-1.0 Al Equivocal >/= 1.1 Al PositiveEBV ANTIBODY, [id number] 14:16:00* Test Item Value Reference Range Interpretation [...] = 411) 26.4 % 40.1-51.0 L POCT-GLUCOSE [id number] 12:45:00* Test Item Value Reference Range Interpretation Comments POC-GLUCOSE METER (BEAKER) (test code = 1538) 204 mg/dL 70-110 H TESTED AT [facility] [address] [facility] [address] CBC W/PLT COUNT & AUTO [id number] 11:32:00* Test Item Value Reference Range Interpretation [...] manually reviewed rbc morp hology on the [id number] 11:25:00* Test Item Value Reference Range Interpretation Comments RPR SCREEN (BEAKER) (test code = 420) Nonreactive Nonreactive [id number] 11:23:00* Test Item Value Reference Range Interpretation Comments AMMONIA (BEAKER) (test code = 348) 62 mol/L 18-72 HEMOGLOBIN AND [id number] 10:37:00* Test Item Value Reference Range Interpretation Comments HEMOGLOBIN (BEAKER) (test code = 410) 7.9 GM/DL 13.7-17.5 L HEMATOCRIT (BEAKER) (test code = 411) 24.4 % 40.1-51.0 L BASIC METABOLIC [id number] 09:29:00* Test Item Value Reference Range Interpretation [...] APPLICABLE FOR DIALYSIS PATIENTS. Specimen markedly ictericPOCT-GLUCOSE [id number] 08:36:00* Test Item Value Reference Range Interpretation Comments POC-GLUCOSE METER (BEAKER) (test code = 1538) 211 mg/dL 70-110 H TESTED AT [facility] [address] [facility] [address] RAD, CHEST, 1 VIEW, NON [id number] 07:24:00Reason for exam:->Pulmonary edema evaluationShould this be [...] MDReport Verified Date/Time: 06/19/2018 07:24:06 Reading Location: [facility] C013V Neuro Reading Room Electronically signed by: OMERO MOURA M.D. on 07:24 AM [id number] 05:40:00* Test Item Value Reference Range Interpretation Comments PARTIAL THROMBOPLASTIN TIME (BEAKER) (test code = 760) 44.4 seconds 22.5-36.0 H PROTHROMBIN TIME/[id number] 05:39:00* Test Item Value Reference Range Interpretation [...] pat ients with mechanical heart valves.HEPATIC FUNCTION [id number] 05:17:00* Test Item Value Reference Range Interpretation [...] U/L 6-55 H Specimen markedly ictericBASIC METABOLIC [id number] 05:17:00* Test Item Value Reference Range Interpretation [...] NOT APPLICABLE FOR DIALYSIS PATIENTS. Specimen markedly [id number] 05:13:00* Test Item Value Reference Range Interpretation Comments PHOSPHORUS (BEAKER) (test code = 604) 5.3 mg/dL 2.3-4.7 H [id number] 05:13:00* Test Item Value Reference Range Interpretation Comments MAGNESIUM (BEAKER) (test code = 627) 2.2 mg/dL 1.6-2.6 LACTIC ACID, [id number] 04:57:00* Test Item Value Reference Range Interpretation Comments LACTATE BLOOD ARTERIAL (2) (BEAKER) (test code = 2874) 0.7 mmol/L 0.5-2.2 Specimen markedly ictericCALCIUM, [id number] 04:46:00* Test Item Value Reference Range Interpretation Comments CALCIUM IONIZED (BEAKER) (test code = 698) 1.07 mmol/L 1.12-1.27 L PH, BLOOD (BEAKER) (test code = 1810) 7.47 BLOOD GAS, [id number] 04:46:00* Test Item Value Reference Range Interpretation [...] code = 1819) 40.0 % OCCULT BLOOD, [id number] 01:25:00* Test Item Value Reference Range Interpretation Comments FECAL OCCULT BLOOD (BEAKER) (test code = 618) Positive Negative A BASIC METABOLIC [id number] 23:56:00* Test Item Value Reference Range Interpretation [...] APPLICABLE FOR DIALYSIS PATIENTS. Specimen markedly ictericCALCIUM, [id number] 23:54:00* Test Item Value Reference Range Interpretation Comments CALCIUM IONIZED (BEAKER) (test code = 698) 1.11 mmol/L 1.12-1.27 L PH, BLOOD (BEAKER) (test code = 1810) 7.46 Check serum Ionized Calcium level after 4 hours after IV Calcium replacement. HEMOGLOBIN AND [id number] 23:37:00* Test Item Value Reference Range Interpretation Comments HEMOGLOBIN (BEAKER) (test code = 410) 7.0 GM/DL 13.7-17.5 L HEMATOCRIT (BEAKER) (test code = 411) 22.2 % 40.1-51.0 L POCT-GLUCOSE [id number] 23:36:00* Test Item Value Reference Range Interpretation Comments POC-GLUCOSE METER (BEAKER) (test code = 1538) 161 mg/dL 70-110 H TESTED AT [facility] [address] [facility] [address] HEMOGLOBIN AND [id number] 20:42:00* Test Item Value Reference Range Interpretation Comments HEMOGLOBIN (BEAKER) (test code = 410) 7.2 GM/DL 13.7-17.5 L HEMATOCRIT (BEAKER) (test code = 411) 22.3 % 40.1-51.0 L CBC W/PLT COUNT & AUTO [id number] 18:06:00* Test Item Value Reference Range Interpretation [...] CONCENTRATION (CELLAVISION)(BEAKER) (test code = 3438) Cheryl bryantate Received comment: User comments: Slide comments: POCT-GLUCOSE [id number] 17:33:00* Test Item Value Reference Range Interpretation Comments POC-GLUCOSE METER (BEAKER) (test code = 1538) 196 mg/dL 70-110 H TESTED AT [facility] [address] [facility] [address] BASIC METABOLIC [id number] 17:24:00* Test Item Value Reference Range Interpretation [...] NOT APPLICABLE FOR DIALYSIS PATIENTS. Specimen markedly [id number] 14:47:00* Test Item Value Reference Range Interpretation Comments T4 TOTAL (BEAKER) (test code = 895) 8.1 ug/dL 4.9-11.7 CRYPTOCOCCAL [id number] 14:31:00* Test Item Value Reference Range Interpretation Comments CRYPTOCOCCAL ANTIGEN, SERUM (BEAKER) (test code = 1828) Nega tive Negative, Interference [id number] 14:20:00* Test Item Value Reference Range Interpretation Comments FERRITIN ([facility]) (test code = 361) 2332 ng/mL 5-275 H LIPID [id number] 14:07:00* Test Item Value Reference Range Interpretation Comments TRIGLYCERIDES ([facility]) (test code = 540) 364 mg/dL CHOLESTEROL ([facility]) (test code = 631) 120 mg/dL HDL CHOLESTEROL ([facility]) (test code = 976) 6 mg/dL LDL [...] High 160-189 Very High >=190 Specimen markedly [id number] 13:01:00* Test Item Value Reference Range Interpretation Comments PROSTATE SPECIFIC ANTIGEN ([facility]) (test code = 844) 0.5 ng/mL 0 .0-4.0 HIV-1 ANTIGEN WITH HIV-1/2 [id number] 13:01:00* Test Item Value Reference Range Interpretation Comments HIV-1 ANTIGEN WITH HIV 1\\T\\2 ANTIBODY (2) ([facility]) (te st code = 2586) Nonreactive Nonreactive CARCINOEMBRYONIC ANTIGEN ([facility])2018-06-18 13:01:00* Test Item Value Reference Range Interpretation Comments CARCINOEMBRYONIC ANTIGEN ([facility]) (test code = 685) 16.6 ng/mL 0. 0-5.0 H VITAMIN D, [id number] 13:01:00* Test Item Value Reference Range Interpretation Comments VITAMIN D 25-OH ([facility]) (test code = 2764) 14.7 ng/mL 6.6-49.9 Effective 12/06/2016: Reference Range ChangeNew: 6.6-49.9 ng/mL Previous: 13.0 -47.8 ng/mLRecommended Vitamin D Target Range: 30.0-40.0 ng/mLPOCT-GLUCOSE METER 2018-06-18 12:53:00* Test Item Value Reference Range Interpretation Comments POC-GLUCOSE METER ([facility]) (test code = 1538) 239 mg/dL 70-110 H TESTED AT [facility] [address] [facility] [address] [id number] 12:43:00* Test Item Value Reference Range Interpretation Comments TRANSFERRIN ([facility]) (test code = 541) 112 mg/dL 174-382 L Specimen markedly ictericURIC [id number] 12:42:00* Test Item Value Reference Range Interpretation Comments URIC ACID (BEAKER) (test code = 773) 15.6 mg/dL 2.6-7.2 H Specimen markedly ictericGAMMA GLUTAMYL TRANSFERASE (GGT)2018-06-18 12:42:00* Test Item Value Reference Range Interpretation Comments GAMMA GLUTAMYL TRANSFERASE (BEAKER) (test code = 364) 125 U/L 9-64 H Specimen markedly [id number] 12:40:00* Test Item Value Reference Range Interpretation Comments ETHANOL (BEAKER) (test code = 400) < mg/dL <=10 [id number] 12:35:00* Test Item Value Reference Range Interpretation Comments FIBRINOGEN LEVEL (BEAKER) (test code = 658) 811 mg/dl 225-434 H BLOOD [id number] 11:56:00* Test Item Value Reference Range Interpretation Comments CULTURE (BEAKER) (test code = 1095) No growth in 5 days BLOOD [id number] 11:56:00* Test Item Value Reference Range Interpretation Comments CULTURE (BEAKER) (test code = 1095) No growth in 5 days CALCIUM, [id number] 11:40:00* Test Item Value Reference Range Interpretation Comments CALCIUM IONIZED (BEAKER) (test code = 698) 1.12 mmol/L 1.12-1.27 PH, BLOOD (BEAKER) (test code = 1810) 7.49 CBC W/PLT COUNT & AUTO [id number] 08:56:00* Test Item Value Reference Range Interpretation [...] WBC: SEGMENTED WITH TOXIG GRANU LATION PRESENT [id number] 08:54:00* Test Item Value Reference Range Interpretation Comments MAGNESIUM (BEAKER) (test code = 627) 2.3 mg/dL 1.6-2.6 BASIC METABOLIC [id number] 08:54:00* Test Item Value Reference Range Interpretation [...] APPLICABLE FOR DIALYSIS PATIENTS. Specimen markedly ictericPOCT-GLUCOSE [id number] 08:29:00* Test Item Value Reference Range Interpretation Comments POC-GLUCOSE METER (BEAKER) (test code = 1538) 223 mg/dL 70-110 H TESTED AT [facility] [address] [facility] [address] RAD, CHEST, 1 VIEW, NON [id number] 04:54:00Reason for exam:->Pulmonary edema evaluationShould this be [...] Verified D ate/Time: 06/18/2018 04:54:27 Reading Location: [facility] C013Y CT Body Reading Ro om D GAS, [id number] 04:39:00* Test Item Value Reference Range Interpretation [...] code = 1819) 40.0 % HEPATIC FUNCTION [id number] 04:35:00* Test Item Value Reference Range Interpretation [...] 347) 138 U/L 6-55 H Specimen markedly [id number] 04:34:00* Test Item Value Reference Range Interpretation Comments MAGNESIUM (BEAKER) (test code = 627) 2.5 mg/dL 1.6-2.6 BASIC METABOLIC [id number] 04:34:00* Test Item Value Reference Range Interpretation [...] code = 380) 50 U/L 29-20 0 [id number] 04:23:00* Test Item Value Reference Range Interpretation Comments PARTIAL THROMBOPLASTIN TIME (BEAKER) (test code = 760) 49.4 seconds 22.5-36.0 H PROTHROMBIN [id number] 04:22:00* Test Item Value Reference Range Interpretation [...] pat ients with mechanical heart valves.LACTIC ACID, [id number] 04:17:00* Test Item Value Reference Range Interpretation Comments LACTATE BLOOD ARTERIAL (2) (BEAKER) (test code = 2874) 1.3 mmol/L 0.5-2.2 Specimen markedly [id number] 00:59:00* Test Item Value Reference Range Interpretation Comments MAGNESIUM (BEAKER) (test code = 627) 2.1 mg/dL 1.6-2.6 BASIC METABOLIC [id number] 00:59:00* Test Item Value Reference Range Interpretation [...] APPLICABLE FOR DIALYSIS PATIENTS. Specimen markedly ictericPOCT-GLUCOSE [id number] 00:20:00* Test Item Value Reference Range Interpretation Comments POC-GLUCOSE METER (BEAKER) (test code = 1538) 155 mg/dL 70-110 H TESTED AT [facility] [address] [place] [address] POCT-GLUCOSE [id number] 18:09:00* Test Item Value Reference Range Interpretation Comments POC-GLUCOSE METER (BEAKER) (test code = 1538) 187 mg/dL 70-110 H TESTED AT [address] [address] BASIC METABOLIC [id number] 16:09:00* Test Item Value Reference Range Interpretation [...] APPLICABLE FOR DIALYSIS PATIENTS. Specimen markedly ictericPOCT-GLUCOSE [id number] 12:03:00* Test Item Value Reference Range Interpretation Comments POC-GLUCOSE METER (BEAKER) (test code = 1538) 212 mg/dL 70-110 H TESTED AT [facility] [address] [facility] [address] [id number] 11:52:00* Test Item Value Reference Range Interpretation Comments MAGNESIUM (BEAKER) (test code = 627) 2.0 mg/dL 1.6-2.6 BASIC METABOLIC [id number] 11:52:00* Test Item Value Reference Range Interpretation [...] Specimen markedly ictericPERIPHERAL BLOOD SMEAR - PATHOLOGIST [id number] 08:37:00* Test Item Value Reference Range Interpretation Comments PERIPHERAL SMR REVIEW (BEAKER) (test code = 2640) Left shifted granulocytes with toxic changes. No circulating blasts. No significantly increased schistocytes. [id number] (BEAKER) (test code = 2849) Raul Arenas M.D.(electronic signature) RAD, CHEST, 1 VIEW, NON [id number] 08:15:00Reason for exam:->Pulmonary edema evaluationShould this be performed at the bedside?->YesFINAL REPORT Chest, one view. HISTORY: Pulmonary edema evaluation COMPARISON: Radiograph from 06/16/2018 IMPRESSION: Unchanged positioning of support lines and tubes. The interstitial edema is unchanged. No pleural effusion or pneumothorax. The cardiac silhouette is unchanged. No acute bony abnormality. Signed: Kyle Rae Verified Date/Time: 06/17/2018 08:15:08 Reading Location: [facility] Radiology Reading Room LT BLOOD, [id number] 07:04:00* Test Item Value Reference Range Interpretation Comments FECAL OCCULT BLOOD (BEAKER) (test code = 618) Negative Negative POCT-GLUCOSE [id number] 06:28:00* Test Item Value Reference Range Interpretation Comments POC-GLUCOSE METER (BEAKER) (test code = 1538) 209 mg/dL 70-110 H TESTED AT [facility] [address] [facility] [address] [id number] 05:05:00* Test Item Value Reference Range Interpretation Comments PARTIAL THROMBOPLASTIN TIME (BEAKER) (test code = 760) 51.6 seconds 22.5-36.0 H PROTHROMBIN [id number] 05:04:00* Test Item Value Reference Range Interpretation [...] pat ients with mechanical heart valves.HEPATIC FUNCTION [id number] 04:18:00* Test Item Value Reference Range Interpretation [...] 347) 146 U/L 6-55 H Specimen markedly [id number] 03:59:00* Test Item Value Reference Range Interpretation Comments MAGNESIUM (BEAKER) (test code = 627) 2.4 mg/dL 1.6-2.6 BASIC METABOLIC [id number] 03:59:00* Test Item Value Reference Range Interpretation [...] NOT APPLICABLE FOR DIALYSIS PATIENTS. Specimen markedly [id number] 03:59:00* Test Item Value Reference Range Interpretation Comments AMYLASE (BEAKER) (test code = 349) 49 U/L 25-125 Specimen markedly [id number] 03:59:00* Test Item Value Reference Range Interpretation Comments LIPASE (BEAKER) (test code = 749) 186 U/L 8-78 H Specimen markedly ictericLACTIC ACID, [id number] 03:41:00* Test Item Value Reference Range Interpretation Comments LACTATE BLOOD ARTERIAL (2) (BEAKER) (test code = 2874) 1.5 mmol/L 0.5-2.2 Specimen markedly ictericCBC W/PLT COUNT & AUTO [id number] 03:38:00 * Test Item Value Reference Range [...] 2801) 3 % 0-1 H BLOOD GAS, [id number] 03:30:00* Test Item Value Reference Range Interpretation [...] (test code = 1819) 40.0 % CALCIUM, [id number] 03:28:00* Test Item Value Reference Range Interpretation Comments CALCIUM IONIZED (BEAKER) (test code = 698) 1.14 mmol/L 1.12-1.27 PH, BLOOD (BEAKER) (test code = 1810) 7.53 Check serum Ionized Calcium level after 4 hours after IV Calcium replacement. POCT-GLUCOSE [id number] 00:11:00* Test Item Value Reference Range Interpretation Comments POC-GLUCOSE METER (BEAKER) (test code = 1538) 233 mg/dL 70-110 H TESTED AT [facility] [address] [facility] [address] HEMOGLOBIN AND [id number] 23:41:00* Test Item Value Reference Range Interpretation Comments HEMOGLOBIN (BEAKER) (test code = 410) 8.3 GM/DL 13.7-17.5 L HEMATOCRIT (BEAKER) (test code = 411) 26.1 % 40.1-51.0 L [id number] 20:50:00* Test Item Value Reference Range Interpretation Comments MAGNESIUM (BEAKER) (test code = 627) 2.5 mg/dL 1.6-2.6 BASIC METABOLIC [id number] 20:50:00* Test Item Value Reference Range Interpretation [...] APPLICABLE FOR DIALYSIS PATIENTS. Specimen markedly ictericCALCIUM, [id number] 20:26:00* Test Item Value Reference Range Interpretation Comments CALCIUM IONIZED (BEAKER) (test code = 698) 1.11 mmol/L 1.12-1.27 L PH, BLOOD (BEAKER) (test code = 1810) 7.53 Check serum Ionized Calcium level after 4 hours after IV Calcium replacement. POCT-GLUCOSE [id number] 20:07:00* Test Item Value Reference Range Interpretation Comments POC-GLUCOSE METER (BEAKER) (test code = 1538) 203 mg/dL 70-110 H TESTED AT [facility] [address] [facility] [address] POCT-GLUCOSE [id number] 16:57:00* Test Item Value Reference Range Interpretation Comments POC-GLUCOSE METER (BEAKER) (test code = 1538) 130 mg/dL 70-110 H TESTED AT [facility] [address] [facility] [address] VITAMIN B12 AND [id number] 16:12:00* Test Item Value Reference Range Interpretation Comments VITAMIN B12 (BEAKER) (test code = 774) 1499 pg/mL 213-816 H FOLATE (BEAKER) (test code = 362) 14.9 ng/mL >=7.0 POCT-GLUCOSE [id number] 15:35:00* Test Item Value Reference Range Interpretation Comments POC-GLUCOSE METER (BEAKER) (test code = 1538) 101 mg/dL 70-110 TESTED AT [facility] [address] [facility] [address] (MANUAL DIFFERENTIAL)2018-06-16 14:42:00* Test Item Value Reference [...] RBCS(BEAKER) (test code = 478) 1+ few [id number] 14:16:00* Test Item Value Reference Range Interpretation Comments HAPTOGLOBIN (BEAKER) (test code = 366) 250 mg/dL 14-258 [id number] 14:09:00* Test Item Value Reference Range Interpretation Comments MAGNESIUM (BEAKER) (test code = 627) 2.1 mg/dL 1.6-2.6 BASIC METABOLIC [id number] 14:09:00* Test Item Value Reference Range Interpretation [...] NOT APPLICABLE FOR DIALYSIS PATIENTS. Specimen markedly [id number] 14:09:00* Test Item Value Reference Range Interpretation Comments AMYLASE (BEAKER) (test code = 349) 55 U/L 25-125 Specimen markedly ictericLACTATE DEHYDROGENASE (LDH)2018-06-16 14:09:00* Test Item Value Reference Range Interpretation Comments LACTATE DEHYDROGENASE (BEAKER) (test code = 635) 388 U/L 125-2 20 H [id number] 14:09:00* Test Item Value Reference Range Interpretation [...] = 2590) 30 % 20-5 5 IRON, [id number] 14:04:00* Test Item Value Reference Range Interpretation Comments IRON (BEAKER) (test code = 547) 37.0 ug/dL 40.0-160.0 L LACTIC ACID, [id number] 14:02:00* Test Item Value Reference Range Interpretation [...] 0 /100 WBC 0 -0 BLOOD GAS, [id number] 13:45:00* Test Item Value Reference Range Interpretation [...] (test code = 1819) 100.0 % POCT-GLUCOSE [id number] 13:23:00* Test Item Value Reference Range Interpretation Comments POC-GLUCOSE METER (BEAKER) (test code = 1538) 121 mg/dL 70-110 H TESTED AT [address] [address] POCT-GLUCOSE [id number] 11:05:00* Test Item Value Reference Range Interpretation Comments POC-GLUCOSE METER (BEAKER) (test code = 1538) 145 mg/dL 70-110 H TESTED AT [address] [address] POCT-GLUCOSE [id number] 08:56:00* Test Item Value Reference Range Interpretation Comments POC-GLUCOSE METER (BEAKER) (test code = 1538) 147 mg/dL 70-110 H TESTED AT [address] [address] CBC W/PLT COUNT & AUTO [id number] 08:10:00* Test Item Value Reference Range Interpretation [...] 1+ few RAD, CHEST, 1 VIEW, NON [id number] 07:59:00Reason for exam:->Pulmonary edema evaluationShould this be performed at the bedside?->YesFINAL REPORT INDICATION: Pulmonary edema evaluation COMPARISON:June 15. TECHNIQUE: Chest radiograph, single view, portable technique. FINDINGS / IMPRESSION: Prominent heart shadow and diffuse interstitial pulmonary edema are again demonstrated. Support lines and tubes unchanged and appear satisfactory. No pneumothorax. Signed: Natalio Santillan Verified Date/Time: 06/16/2018 07:59:49 Reading Location: [facility] C013W Consult Reading Room Electron ically signed by: NATALIO SANTILLAN M.D. on 06/16/2018 07:59 AM POCT- GLUCOSE [id number] 07:05:00* Test Item Value Reference Range Interpretation Comments POC-GLUCOSE METER (BEAKER) (test code = 1538) 114 mg/dL 70-110 H TESTED AT [facility] [address] [facility] [address] POCT-GLUCOSE [id number] 05:09:00* Test Item Value Reference Range Interpretation Comments POC-GLUCOSE METER (BEAKER) (test code = 1538) 120 mg/dL 70-110 H TESTED AT [facility] [address] [facility] [address] HEPATIC FUNCTION [id number] 04:53:00* Test Item Value Reference Range Interpretation [...] 347) 138 U/L 6-55 H Specimen markedly [id number] 04:30:00* Test Item Value Reference Range Interpretation Comments MAGNESIUM (BEAKER) (test code = 627) 2.3 mg/dL 1.6-2.6 BASIC METABOLIC [id number] 04:30:00* Test Item Value Reference Range Interpretation [...] NOT APPLICABLE FOR DIALYSIS PATIENTS. Specimen markedly [id number] 04:14:00* Test Item Value Reference Range Interpretation Comments PARTIAL THROMBOPLASTIN TIME (BEAKER) (test code = 760) 48.2 seconds 22.5-36.0 H PROTHROMBIN [id number] 04:13:00* Test Item Value Reference Range Interpretation [...] pat ients with mechanical heart valves.LACTIC ACID, [id number] 04:08:00* Test Item Value Reference Range Interpretation Comments LACTATE BLOOD ARTERIAL (2) (BEAKER) (test code = 2874) 0.9 mmol/L 0.5-2.2 Specimen markedly ictericBLOOD GAS, [id number] 03:51:00* Test Item Value Reference Range Interpretation [...] (test code = 1819) 40.0 % CALCIUM, [id number] 03:49:00* Test Item Value Reference Range Interpretation Comments CALCIUM IONIZED (BEAKER) (test code = 698) 1.13 mmol/L 1.12-1.27 PH, BLOOD (BEAKER) (test code = 1810) 7.52 Check serum Ionized Calcium level after 4 hours after IV Calcium replacement. POCT-GLUCOSE [id number] 02:50:00* Test Item Value Reference Range Interpretation Comments POC-GLUCOSE METER (BEAKER) (test code = 1538) 132 mg/dL 70-110 H TESTED AT [address] [address] POCT-GLUCOSE [id number] 01:18:00* Test Item Value Reference Range Interpretation Comments POC-GLUCOSE METER (BEAKER) (test code = 1538) 137 mg/dL 70-110 H TESTED AT [address] [address] POCT-GLUCOSE [id number] 00:07:00* Test Item Value Reference Range Interpretation Comments POC-GLUCOSE METER (BEAKER) (test code = 1538) 131 mg/dL 70-110 H TESTED AT [address] [address] BLOOD GAS, [id number] 22:54:00* Test Item Value Reference Range Interpretation [...] (test code = 1819) 40.0 % POCT-GLUCOSE [id number] 22:51:00* Test Item Value Reference Range Interpretation Comments POC-GLUCOSE METER (BEAKER) (test code = 1538) 167 mg/dL 70-110 H TESTED AT [address] [address] [id number] 22:08:00* Test Item Value Reference Range Interpretation Comments POTASSIUM (BEAKER) (test code = 379) 3.9 meq/L 3.5-5.1 PRN - repeat potassium levels every 1 hour until glucose level is less than 450 mg/[id number] 22:08:00* Test Item Value Reference Range Interpretation Comments MAGNESIUM (BEAKER) (test code = 627) 2.3 mg/dL 1.6-2.6 PRN - repeat potassium levels every 1 hour until glucose level is less than 450 mg/dLPOCT-GLUCOSE [id number] 22:00:00* Test Item Value Reference Range Interpretation Comments POC-GLUCOSE METER (BEAKER) (test code = 1538) 126 mg/dL 70-110 H TESTED AT [address] [address] HEMOGLOBIN AND [id number] 21:56:00* Test Item Value Reference Range Interpretation Comments HEMOGLOBIN (BEAKER) (test code = 410) 8.4 GM/DL 13.7-17.5 L HEMATOCRIT (BEAKER) (test code = 411) 26.0 % 40.1-51.0 L CALCIUM, [id number] 21:53:00* Test Item Value Reference Range Interpretation Comments CALCIUM IONIZED (BEAKER) (test code = 698) 1.10 mmol/L 1.12-1.27 L PH, BLOOD (BEAKER) (test code = 1810) 7.50 Check serum Ionized Calcium level after 4 hours after IV Calcium replacement. POCT-GLUCOSE [id number] 20:41:00* Test Item Value Reference Range Interpretation Comments POC-GLUCOSE METER (BEAKER) (test code = 1538) 90 mg/dL 70-110 TESTED AT [address] [address] BLOOD GAS, [id number] 18:42:00* Test Item Value Reference Range Interpretation [...] (test code = 1819) 50.0 % POCT-GLUCOSE [id number] 17:49:00* Test Item Value Reference Range Interpretation Comments POC-GLUCOSE METER (BEAKER) (test code = 1538) 125 mg/dL 70-110 H TESTED AT [address] [address] BASIC METABOLIC [id number] 17:46:00* Test Item Value Reference Range Interpretation [...] FOR DIALYSIS PATIENTS. Specimen markedly ictericBLOOD GAS, [id number] 17:35:00* Test Item Value Reference Range Interpretation [...] (test code = 1819) 50.0 % POCT-GLUCOSE [id number] 15:27:00* Test Item Value Reference Range Interpretation Comments POC-GLUCOSE METER (BEAKER) (test code = 1538) 138 mg/dL 70-110 H TESTED AT [facility] [address] [facility] [address] [id number] 13:59:00* Test Item Value Reference Range Interpretation Comments MAGNESIUM (BEAKER) (test code = 627) 2.1 mg/dL 1.6-2.6 BASIC METABOLIC [id number] 13:59:00* Test Item Value Reference Range Interpretation [...] FOR DIALYSIS PATIENTS. Specimen markedly ictericBLOOD GAS, [id number] 13:40:00* Test Item Value Reference Range Interpretation [...] code = 1819) 50.0 % HEMOGLOBIN AND [id number] 13:40:00* Test Item Value Reference Range Interpretation Comments HEMOGLOBIN (BEAKER) (test code = 410) 7.4 GM/DL 13.7-17.5 L HEMATOCRIT (BEAKER) (test code = 411) 23.5 % 40.1-51.0 L Please collect after PRBCs doneRAD, CHEST, 1 VIEW, NON [id number] 11:32:00 Reason for exam:->Pulmonary edema evaluationShould this [...] MDReport Verified Date/Time: 06/15/2018 11:32:52 Reading Location: [address] Consult Reading Room -GLUCOSE [id number] 10:50:00* Test Item Value Reference Range Interpretation Comments POC-GLUCOSE METER (BEAKER) (test code = 1538) 107 mg/dL 70-110 TESTED AT [facility] [address] [facility] [address] CBC W/PLT COUNT & AUTO [id number] 09:04:00* Test Item Value Reference Range Interpretation [...] quate Received comment: User comments: Slide comments: [id number] 08:43:00* Test Item Value Reference Range Interpretation Comments POTASSIUM (BEAKER) (test code = 379) 3.9 meq/L 3.5-5.1 PRN - repeat glucose levels every 1 hour or as specified by insulin titration or ders until glucose level is less than 450 mg/dLCheck Serum Potassium level 2 roxy rs after oral potassium replacement completed or 30 min after intravenous potass ium replacement.[id number] 08:43:00* Test Item Value Reference Range Interpretation Comments GLUCOSE RANDOM (BEAKER) (test code = 652) 123 mg/dL 70-105 H PRN - repeat glucose levels every 1 hour or as specified by insulin titration or ders until glucose level is less than 450 mg/dLCheck Serum Potassium level 2 roxy rs after oral potassium replacement completed or 30 min after intravenous potass ium replacement.HEMOGLOBIN AND [id number] 07:05:00* Test Item Value Reference Range Interpretation Comments HEMOGLOBIN (BEAKER) (test code = 410) 6.6 GM/DL 13.7-17.5 L HEMATOCRIT (BEAKER) (test code = 411) 21.3 % 40.1-51.0 L POCT-GLUCOSE [id number] 06:52:00* Test Item Value Reference Range Interpretation Comments POC-GLUCOSE METER (BEAKER) (test code = 1538) 117 mg/dL 70-110 H TESTED AT [facility] [address] [facility] [address] CALCIUM, [id number] 04:47:00* Test Item Value Reference Range Interpretation Comments CALCIUM IONIZED (BEAKER) (test code = 698) 1.10 mmol/L 1.12-1.27 L PH, BLOOD (BEAKER) (test code = 1810) 7.48 Check serum Ionized Calcium level after 4 hours after IV Calcium replacement. BLOOD GAS, [id number] 04:47:00* Test Item Value Reference Range Interpretation [...] code = 1819) 50.0 % BASIC METABOLIC [id number] 04:27:00* Test Item Value Reference Range Interpretation [...] NOT APPLICABLE FOR DIALYSIS PATIENTS. Specimen markedly [id number] 04:15:00* Test Item Value Reference Range Interpretation Comments MAGNESIUM (BEAKER) (test code = 627) 2.4 mg/dL 1.6-2.6 HEPATIC FUNCTION [id number] 04:15:00* Test Item Value Reference Range Interpretation [...] 134 U/L 6-55 H Specimen markedly ictericPOCT-GLUCOSE [id number] 04:02:00* Test Item Value Reference Range Interpretation Comments POC-GLUCOSE METER (BEAKER) (test code = 1538) 107 mg/dL 70-110 TESTED AT [facility] [address] [facility] [address] [id number] 03:59:00* Test Item Value Reference Range Interpretation Comments PARTIAL THROMBOPLASTIN TIME (GAURAVAKER) (test code = 760) 54.6 seconds 22.5-36.0 H PROTHROMBIN TIME/[id number] 03:58:00* Test Item Value Reference Range Interpretation [...] pat ients with mechanical heart valves.LACTIC ACID, [id number] 03:56:00* Test Item Value Reference Range Interpretation Comments LACTATE BLOOD ARTERIAL (2) (BEAKER) (test code = 2874) 1.1 mmol/L 0.5-2.2 Specimen markedly ictericPOCT-GLUCOSE [id number] 03:10:00* Test Item Value Reference Range Interpretation Comments POC-GLUCOSE METER (BEAKER) (test code = 1538) 118 mg/dL 70-110 H TESTED AT [facility] [address] [facility] [address] POCT-GLUCOSE [id number] 02:11:00* Test Item Value Reference Range Interpretation Comments POC-GLUCOSE METER (BEAKER) (test code = 1538) 112 mg/dL 70-110 H TESTED AT [address] [address] POCT-GLUCOSE [id number] 01:28:00* Test Item Value Reference Range Interpretation Comments POC-GLUCOSE METER (BEAKER) (test code = 1538) 126 mg/dL 70-110 H TESTED AT [address] [address] BASIC METABOLIC [id number] 00:27:00* Test Item Value Reference Range Interpretation [...] APPLICABLE FOR DIALYSIS PATIENTS. Specimen markedly ictericPOCT-GLUCOSE [id number] 00:22:00* Test Item Value Reference Range Interpretation Comments POC-GLUCOSE METER (BEAKER) (test code = 1538) 155 mg/dL 70-110 H TESTED AT [address] [address] POCT-GLUCOSE [id number] 23:18:00* Test Item Value Reference Range Interpretation Comments POC-GLUCOSE METER (BEAKER) (test code = 1538) 168 mg/dL 70-110 H TESTED AT [address] [address] POCT-GLUCOSE [id number] 22:13:00* Test Item Value Reference Range Interpretation Comments POC-GLUCOSE METER (BEAKER) (test code = 1538) 171 mg/dL 70-110 H TESTED AT [address] [address] [id number] 21:19:00* Test Item Value Reference Range Interpretation Comments MAGNESIUM (BEAKER) (test code = 627) 2.5 mg/dL 1.6-2.6 POCT-GLUCOSE [id number] 21:14:00* Test Item Value Reference Range Interpretation Comments POC-GLUCOSE METER (BEAKER) (test code = 1538) 166 mg/dL 70-110 H TESTED AT [address] [address] CALCIUM, [id number] 21:03:00* Test Item Value Reference Range Interpretation Comments CALCIUM IONIZED (BEAKER) (test code = 698) 1.07 mmol/L 1.12-1.27 L PH, BLOOD (BEAKER) (test code = 1810) 7.52 Check serum Ionized Calcium level after 4 hours after IV Calcium replacement. POCT-GLUCOSE [id number] 20:12:00* Test Item Value Reference Range Interpretation Comments POC-GLUCOSE METER (BEAKER) (test code = 1538) 172 mg/dL 70-110 H TESTED AT [address] [address] POCT-GLUCOSE [id number] 18:57:00* Test Item Value Reference Range Interpretation Comments POC-GLUCOSE METER (BEAKER) (test code = 1538) 158 mg/dL 70-110 H TESTED AT [address] [address] POCT-GLUCOSE [id number] 18:57:00* Test Item Value Reference Range Interpretation Comments POC-GLUCOSE METER (BEAKER) (test code = 1538) 172 mg/dL 70-110 H TESTED AT [address] [address] POCT-GLUCOSE [id number] 18:57:00* Test Item Value Reference Range Interpretation Comments POC-GLUCOSE METER (BEAKER) (test code = 1538) 139 mg/dL 70-110 H TESTED AT [address] [address] POCT-GLUCOSE [id number] 18:57:00* Test Item Value Reference Range Interpretation Comments POC-GLUCOSE METER (BEAKER) (test code = 1538) 98 mg/dL 70-110 TESTED AT [facility] [address] [facility] [address] BASIC METABOLIC [id number] 18:53:00* Test Item Value Reference Range Interpretation [...] FOR DIALYSIS PATIENTS. Specimen markedly ictericEBV VIRAL [id number] 17:58:00* Test Item Value Reference Range Interpretation [...] (2) real-time PCR amplification and detection with HRUZ-9-bsxnkh ic primers and probes. A well-conserved region [...] its performance characteristic s determined by the [facility] Pathology Department, Section of L[place] reeder Pathology. It has not been cleared or approved by the U.S. Food and Zach g Administration (FDA), since FDA approval is not required for clinical use of t he test. Validation was done as required by The Clinical Laboratory Improvement Amendments of 1988.POCT-GLUCOSE [id number] 14:21:00* Test Item Value Reference Range Interpretation Comments POC-GLUCOSE METER (BEAKER) (test code = 1538) 102 mg/dL 70-110 TESTED AT [facility] [address] [facility] [address] POCT-GLUCOSE [id number] 12:29:00* Test Item Value Reference Range Interpretation Comments POC-GLUCOSE METER (BEAKER) (test code = 1538) 101 mg/dL 70-110 TESTED AT [address] [address] BASIC METABOLIC [id number] 11:58:00* Test Item Value Reference Range Interpretation [...] NOT APPLICABLE FOR DIALYSIS PATIENTS. Specimen markedly [id number] 11:55:00* Test Item Value Reference Range Interpretation Comments MAGNESIUM (BEAKER) (test code = 627) 2.8 mg/dL 1.6-2.6 H POCT-GLUCOSE [id number] 11:53:00* Test Item Value Reference Range Interpretation Comments POC-GLUCOSE METER (BEAKER) (test code = 1538) 134 mg/dL 70-110 H TESTED AT [facility] [address] [facility] [address] POCT-GLUCOSE [id number] 11:53:00* Test Item Value Reference Range Interpretation Comments POC-GLUCOSE METER (BEAKER) (test code = 1538) 134 mg/dL 70-110 H TESTED AT [address] [address] POCT-GLUCOSE [id number] 11:53:00* Test Item Value Reference Range Interpretation Comments POC-GLUCOSE METER (BEAKER) (test code = 1538) 161 mg/dL 70-110 H TESTED AT [address] [address] BLOOD GAS, [id number] 11:41:00* Test Item Value Reference Range Interpretation [...] 50.0 % CBC W/PLT COUNT & AUTO [id number] 10:02:00* Test Item Value Reference Range Interpretation [...] Received comment: User comments: Slide comments: POCT-GLUCOSE [id number] 09:09:00* Test Item Value Reference Range Interpretation Comments POC-GLUCOSE METER (BEAKER) (test code = 1538) 159 mg/dL 70-110 H TESTED AT [facility] [address] [facility] [address] POCT-GLUCOSE [id number] 08:09:00* Test Item Value Reference Range Interpretation Comments POC-GLUCOSE METER (BEAKER) (test code = 1538) 178 mg/dL 70-110 H TESTED AT [facility] [address] [facility] [address] RAD, CHEST, 1 VIEW, NON [id number] 07:32:00Reason for exam:->respiratory insufficiencyShould this be performed [...] MDReport Verified Date/Time: 06/14/2018 07:32:08 Reading Location: [facility] Radiology Reading Room [id number] 06:43:00* Test Item Value Reference Range Interpretation Comments PARTIAL THROMBOPLASTIN TIME (BEAKER) (test code = 760) 45.8 seconds 22.5-36.0 H PROTHROMBIN [id number] 06:42:00* Test Item Value Reference Range Interpretation [...] pat ients with mechanical heart valves.BASIC METABOLIC [id number] 06:41:00* Test Item Value Reference Range Interpretation [...] APPLICABLE FOR DIALYSIS PATIENTS. Specimen markedly ictericPOCT-GLUCOSE [id number] 06:32:00* Test Item Value Reference Range Interpretation Comments POC-GLUCOSE METER (BEAKER) (test code = 1538) 175 mg/dL 70-110 H TESTED AT [facility] [address] [facility] [address] POCT-GLUCOSE [id number] 05:43:00* Test Item Value Reference Range Interpretation Comments POC-GLUCOSE METER (BEAKER) (test code = 1538) 149 mg/dL 70-110 H TESTED AT [facility] [address] [facility] [address] POCT-GLUCOSE [id number] 05:43:00* Test Item Value Reference Range Interpretation Comments POC-GLUCOSE METER (BEAKER) (test code = 1538) 140 mg/dL 70-110 H TESTED AT [facility] [address] [facility] [address] BASIC METABOLIC [id number] 04:55:00* Test Item Value Reference Range Interpretation [...] FOR DIALYSIS PATIENTS. Specimen markedly ictericBLOOD GAS, [id number] 04:37:00* Test Item Value Reference Range Interpretation [...] code = 1819) 60.0 % BASIC METABOLIC [id number] 04:35:00* Test Item Value Reference Range Interpretation [...] NOT APPLICABLE FOR DIALYSIS PATIENTS. Specimen markedly [id number] 04:25:00* Test Item Value Reference Range Interpretation Comments MAGNESIUM (BEAKER) (test code = 627) 2.4 mg/dL 1.6-2.6 HEPATIC FUNCTION [id number] 04:25:00* Test Item Value Reference Range Interpretation [...] 347) 119 U/L 6-55 H Specimen markedly [id number] 04:25:00* Test Item Value Reference Range Interpretation Comments AMYLASE (BEAKER) (test code = 349) 80 U/L 25-125 Specimen markedly [id number] 04:25:00* Test Item Value Reference Range Interpretation Comments LIPASE (BEAKER) (test code = 749) 222 U/L 8-78 H Specimen markedly ictericLACTIC ACID, [id number] 04:17:00* Test Item Value Reference Range Interpretation Comments LACTATE BLOOD ARTERIAL (2) (BEAKER) (test code = 2874) 0.8 mmol/L 0.5-2.2 Specimen markedly ictericPOCT-GLUCOSE [id number] 02:31:00* Test Item Value Reference Range Interpretation Comments POC-GLUCOSE METER (BEAKER) (test code = 1538) 98 mg/dL 70-110 TESTED AT [facility] [address] [facility] [address] POCT-GLUCOSE [id number] 01:45:00* Test Item Value Reference Range Interpretation Comments POC-GLUCOSE METER (BEAKER) (test code = 1538) 120 mg/dL 70-110 H TESTED AT [facility] [address] [facility] [address] POCT-GLUCOSE [id number] 01:45:00* Test Item Value Reference Range Interpretation Comments POC-GLUCOSE METER (BEAKER) (test code = 1538) 171 mg/dL 70-110 H TESTED AT [facility] [address] [facility] [address] CT, CHEST, WITHOUT [id number] 00:56:00FINAL REPORT EXAM: CT of the chest, [...] MDReport Verified Date/Time: 06/14/2018 00:56:49 Reading Location: [facility] B[facility] C013Y CT Body Reading Room Amada ctronically signed by: NICOLÁS CEBALLOS MD on 06/14/2018 12:[address], [id number] 00:56:00With PO contrastFINAL REPORT EXAM: CT of [...] MDReport Verified Date/Time: 06/14/2018 00:56:49 Reading Location: [facility] C013Y CT Body Reading Room Amada ctronically signed by: NICOLÁS CEBALLOS MD on 06/14/2018 12:56 AM POCT- GLUCOSE [id number] 23:12:00* Test Item Value Reference Range Interpretation Comments POC-GLUCOSE METER (BEAKER) (test code = 1538) 200 mg/dL 70-110 H TESTED AT [facility] [address] [facility] [address] POCT-GLUCOSE [id number] 23:12:00* Test Item Value Reference Range Interpretation Comments POC-GLUCOSE METER (BEAKER) (test code = 1538) 132 mg/dL 70-110 H TESTED AT [facility] [address] [facility] [address] [id number] 21:11:00* Test Item Value Reference Range Interpretation Comments MAGNESIUM (BEAKER) (test code = 627) 2.5 mg/dL 1.6-2.6 POCT-GLUCOSE [id number] 20:48:00* Test Item Value Reference Range Interpretation Comments POC-GLUCOSE METER (BEAKER) (test code = 1538) 103 mg/dL 70-110 TESTED AT [place] [id number] [facility] [address] POCT-GLUCOSE [id number] 20:48:00* Test Item Value Reference Range Interpretation Comments POC-GLUCOSE METER (BEAKER) (test code = 1538) 98 mg/dL 70-110 TESTED AT [address] [address] POCT-GLUCOSE [id number] 18:14:00* Test Item Value Reference Range Interpretation Comments POC-GLUCOSE METER (BEAKER) (test code = 1538) 108 mg/dL 70-110 TESTED AT [facility] [address] [facility] [address] BASIC METABOLIC [id number] 18:09:00* Test Item Value Reference Range Interpretation [...] FOR DIALYSIS PATIENTS. Specimen markedly ictericBLOOD GAS, [id number] 16:57:00* Test Item Value Reference Range Interpretation [...] (test code = 1819) 40.0 % POCT-GLUCOSE [id number] 16:51:00* Test Item Value Reference Range Interpretation Comments POC-GLUCOSE METER (BEAKER) (test code = 1538) 107 mg/dL 70-110 TESTED AT [facility] [address] [facility] [address] CMV PCR, [id number] 16:28:00* Test Item Value Reference Range Interpretation [...] its performance characteristics determined by charlene greenwood [facility] Pathology Department, Section of Molecular Patholog y. It has not been cleared or approved by the U.S. Food and Drug Administration (FDA), since FDA approval is not required for clinical use of the test. Validati on was done as required by The Clinical Laboratory Improvement Amendments of 198 8.POCT-GLUCOSE [id number] 15:09:00* Test Item Value Reference Range Interpretation Comments POC-GLUCOSE METER (BEAKER) (test code = 1538) 119 mg/dL 70-110 H TESTED AT [facility] [address] [facility] [address] POCT-GLUCOSE [id number] 14:43:00* Test Item Value Reference Range Interpretation Comments POC-GLUCOSE METER (BEAKER) (test code = 1538) 129 mg/dL 70-110 H TESTED AT [facility] [address] [facility] [address] BASIC METABOLIC [id number] 13:25:00* Test Item Value Reference Range Interpretation [...] APPLICABLE FOR DIALYSIS PATIENTS. Specimen markedly ictericPOCT-GLUCOSE [id number] 13:23:00* Test Item Value Reference Range Interpretation Comments POC-GLUCOSE METER (BEAKER) (test code = 1538) 172 mg/dL 70-110 H TESTED AT [place] [id number] [facility] [address] [id number] 13:14:00* Test Item Value Reference Range Interpretation Comments MAGNESIUM (BEAKER) (test code = 627) 2.6 mg/dL 1.6-2.6 Specimen slightly hemolyzed POCT-GLUCOSE [id number] 12:04:00* Test Item Value Reference Range Interpretation Comments POC-GLUCOSE METER (BEAKER) (test code = 1538) 205 mg/dL 70-110 H TESTED AT [place] [id number] [facility] [address] POCT-GLUCOSE [id number] 11:10:00* Test Item Value Reference Range Interpretation Comments POC-GLUCOSE METER (BEAKER) (test code = 1538) 182 mg/dL 70-110 H TESTED AT [address] [address] BLOOD GAS, [id number] 10:41:00* Test Item Value Reference Range Interpretation [...] (test code = 1819) 100.0 % POCT-GLUCOSE [id number] 09:50:00* Test Item Value Reference Range Interpretation Comments POC-GLUCOSE METER (BEAKER) (test code = 1538) 138 mg/dL 70-110 H TESTED AT [address] [address] POCT-GLUCOSE [id number] 08:44:00* Test Item Value Reference Range Interpretation Comments POC-GLUCOSE METER (BEAKER) (test code = 1538) 98 mg/dL 70-110 TESTED AT [address] [address] BLOOD GAS, [id number] 06:47:00* Test Item Value Reference Range Interpretation [...] (test code = 1819) 80.0 % POCT-GLUCOSE [id number] 06:41:00* Test Item Value Reference Range Interpretation Comments POC-GLUCOSE METER (BEAKER) (test code = 1538) 123 mg/dL 70-110 H TESTED AT [facility] [address] [facility] [address] POCT-GLUCOSE [id number] 06:41:00* Test Item Value Reference Range Interpretation Comments POC-GLUCOSE METER (BEAKER) (test code = 1538) 121 mg/dL 70-110 H TESTED AT [place] [id number] [facility] [address] BASIC METABOLIC [id number] 06:25:00* Test Item Value Reference Range Interpretation [...] FOR DIALYSIS PATIENTS. Specimen markedly ictericBASIC METABOLIC [id number] 03:47:00* Test Item Value Reference Range Interpretation [...] NOT APPLICABLE FOR DIALYSIS PATIENTS. Specimen markedly [id number] 03:41:00* Test Item Value Reference Range Interpretation Comments MAGNESIUM (BEAKER) (test code = 627) 2.7 mg/dL 1.6-2.6 H HEPATIC FUNCTION [id number] 03:41:00* Test Item Value Reference Range Interpretation [...] 347) 104 U/L 6-55 H Specimen markedly [id number] 03:39:00* Test Item Value Reference Range Interpretation Comments PARTIAL THROMBOPLASTIN TIME (BEAKER) (test code = 760) 48.3 seconds 22.5-36.0 H PROTHROMBIN [id number] 03:38:00* Test Item Value Reference Range Interpretation [...] pat ients with mechanical heart valves.LACTIC ACID, [id number] 03:31:00* Test Item Value Reference Range Interpretation Comments LACTATE BLOOD ARTERIAL (2) (BEAKER) (test code = 2874) 0.8 mmol/L 0.5-2.2 Specimen markedly ictericCBC W/PLT COUNT & AUTO [id number] 03:24:00 * Test Item Value Reference Range [...] = 2801) 3 % 0-1 H POCT-GLUCOSE [id number] 03:06:00* Test Item Value Reference Range Interpretation Comments POC-GLUCOSE METER (BEAKER) (test code = 1538) 155 mg/dL 70-110 H TESTED AT [facility] [address] [facility] [address] BASIC METABOLIC [id number] 02:44:00* Test Item Value Reference Range Interpretation [...] FOR DIALYSIS PATIENTS. Specimen markedly ictericBLOOD GAS, [id number] 02:08:00* Test Item Value Reference Range Interpretation [...] 100.0 % RAD, CHEST, 1 VIEW, NON [id number] 01:40:00Reason for exam:->decreased lung sounds; possible aspirationShould this be performed at the bedside?->YesFINAL REPORT CLINICAL INDICATION: Decreased lung sounds, concern for aspiration Comparison: 06/12/2018 The cardiomediastinal contours are stable. The lung volumes remain low. Central pulmonary vascular congestion and bilateral parenchymal opacities are unchanged. There is no pneumothorax. Support lines are stable. Signed: Katherine Reich MDReport Verified Date/Time: 06/14/19 01:40:10 Reading Location: [address] Reading Room [facility] signed by: KATHERINE REICH M.D. on 06/13/2018 01:40 AM RAD, ABDOMEN/KUB, 1 VIEW [id number] 01:37:00Reason for exam:->distended abdomenShould this be performed [...] MDReport Verified Date/Time: 06/13/2018 01:37:29 Reading Location: [address] Reading Room -GLUCOSE [id number] 00:36:00* Test Item Value Reference Range Interpretation Comments POC-GLUCOSE METER (BEAKER) (test code = 1538) 192 mg/dL 70-110 H TESTED AT [facility] [address] [facility] [address] OCCULT BLOOD, [id number] 22:31:00* Test Item Value Reference Range Interpretation Comments FECAL OCCULT BLOOD (BEAKER) (test code = 618) Positive Negative A [id number] 21:12:00* Test Item Value Reference Range Interpretation Comments MAGNESIUM (BEAKER) (test code = 627) 2.4 mg/dL 1.6-2.6 POCT-GLUCOSE [id number] 20:34:00* Test Item Value Reference Range Interpretation Comments POC-GLUCOSE METER (BEAKER) (test code = 1538) 160 mg/dL 70-110 H TESTED AT [facility] [address] [facility] [address] BASIC METABOLIC [id number] 18:27:00* Test Item Value Reference Range Interpretation [...] APPLICABLE FOR DIALYSIS PATIENTS. Specimen markedly ictericPOCT-GLUCOSE [id number] 17:35:00* Test Item Value Reference Range Interpretation Comments POC-GLUCOSE METER (BEAKER) (test code = 1538) 136 mg/dL 70-110 H TESTED AT [facility] [address] [facility] [address] BLOOD GAS, [id number] 16:12:00* Test Item Value Reference Range Interpretation [...] (test code = 1819) 40.0 % POCT-GLUCOSE [id number] 14:51:00* Test Item Value Reference Range Interpretation Comments POC-GLUCOSE METER (BEAKER) (test code = 1538) 137 mg/dL 70-110 H TESTED AT [facility] [address] [facility] [address] POCT-GLUCOSE [id number] 13:23:00* Test Item Value Reference Range Interpretation Comments POC-GLUCOSE METER (BEAKER) (test code = 1538) 132 mg/dL 70-110 H TESTED AT [place] [id number] [facility] [address] BLOOD GAS, [id number] 13:13:00* Test Item Value Reference Range Interpretation [...] code = 1819) 40.0 % BASIC METABOLIC [id number] 13:08:00* Test Item Value Reference Range Interpretation [...] NOT APPLICABLE FOR DIALYSIS PATIENTS. Specimen markedly [id number] 13:04:00* Test Item Value Reference Range Interpretation Comments MAGNESIUM (BEAKER) (test code = 627) 2.6 mg/dL 1.6-2.6 POCT-GLUCOSE [id number] 12:17:00* Test Item Value Reference Range Interpretation Comments POC-GLUCOSE METER (BEAKER) (test code = 1538) 123 mg/dL 70-110 H TESTED AT [facility] [address] [facility] [address] POCT-GLUCOSE [id number] 11:33:00* Test Item Value Reference Range Interpretation Comments POC-GLUCOSE METER (BEAKER) (test code = 1538) 133 mg/dL 70-110 H TESTED AT [place] [id number] [facility] [address] POCT-GLUCOSE [id number] 10:10:00* Test Item Value Reference Range Interpretation Comments POC-GLUCOSE METER (BEAKER) (test code = 1538) 151 mg/dL 70-110 H TESTED AT [address] [address] POCT-GLUCOSE [id number] 09:07:00* Test Item Value Reference Range Interpretation Comments POC-GLUCOSE METER (BEAKER) (test code = 1538) 155 mg/dL 70-110 H TESTED AT [address] [address] POCT-GLUCOSE [id number] 08:05:00* Test Item Value Reference Range Interpretation Comments POC-GLUCOSE METER (BEAKER) (test code = 1538) 143 mg/dL 70-110 H TESTED AT [address] [address] CBC W/PLT COUNT & AUTO [id number] 07:31:00* Test Item Value Reference Range Interpretation [...] LATION PRESENT RAD, CHEST, 1 VIEW, NON [id number] 06:50:00Reason for exam:-> respiratory insufficiencyShould this be [...] MDReport Verified Date/Time: 06/12/2018 06:50:17 Reading Location: [address] Neuro Reading Room Electronically signed by: MD rafaela MO 06/12/2018 06:50 AM POCT-GLUCOSE [id number] 06:23:00* Test Item Value Reference Range Interpretation Comments POC-GLUCOSE METER (BEAKER) (test code = 1538) 161 mg/dL 70-110 H TESTED AT [address] [address] POCT-GLUCOSE [id number] 05:09:00* Test Item Value Reference Range Interpretation Comments POC-GLUCOSE METER (BEAKER) (test code = 1538) 177 mg/dL 70-110 H TESTED AT [address] [address] POCT-GLUCOSE [id number] 05:09:00* Test Item Value Reference Range Interpretation Comments POC-GLUCOSE METER (BEAKER) (test code = 1538) 188 mg/dL 70-110 H TESTED AT [address] [address] BLOOD GAS, [id number] 04:41:00* Test Item Value Reference Range Interpretation [...] (test code = 1819) 50.0 % CALCIUM, [id number] 04:41:00* Test Item Value Reference Range Interpretation Comments CALCIUM IONIZED (BEAKER) (test code = 698) 1.08 mmol/L 1.12-1.27 L PH, BLOOD (BEAKER) (test code = 1810) 7.44 BASIC METABOLIC [id number] 04:24:00* Test Item Value Reference Range Interpretation [...] NOT APPLICABLE FOR DIALYSIS PATIENTS. Specimen markedly [id number] 04:23:00* Test Item Value Reference Range Interpretation Comments PHOSPHORUS (BEAKER) (test code = 604) 5.0 mg/dL 2.3-4.7 H [id number] 04:23:00* Test Item Value Reference Range Interpretation Comments MAGNESIUM (BEAKER) (test code = 627) 2.8 mg/dL 1.6-2.6 H HEPATIC FUNCTION [id number] 04:23:00* Test Item Value Reference Range Interpretation [...] 347) 96 U/L 6-55 H Specimen markedly [id number] 04:22:00* Test Item Value Reference Range Interpretation Comments PARTIAL THROMBOPLASTIN TIME (BEAKER) (test code = 760) 54.7 seconds 22.5-36.0 H PROTHROMBIN [id number] 04:21:00* Test Item Value Reference Range Interpretation [...] pat ients with mechanical heart valves.LACTIC ACID, [id number] 04:15:00* Test Item Value Reference Range Interpretation Comments LACTATE BLOOD ARTERIAL (2) (BEAKER) (test code = 2874) 0.9 mmol/L 0.5-2.2 Specimen slightly hemolyzed Specimen markedly [id number] 02:06:00* Test Item Value Reference Range Interpretation Comments POTASSIUM (BEAKER) (test code = 379) 3.5 meq/L 3.5-5.1 [id number] 02:06:00* Test Item Value Reference Range Interpretation Comments GLUCOSE RANDOM (BEAKER) (test code = 652) 225 mg/dL 70-105 H BASIC METABOLIC [id number] 00:30:00* Test Item Value Reference Range Interpretation [...] APPLICABLE FOR DIALYSIS PATIENTS. Specimen markedly ictericPOCT-GLUCOSE [id number] 00:28:00* Test Item Value Reference Range Interpretation Comments POC-GLUCOSE METER (BEAKER) (test code = 1538) 245 mg/dL 70-110 H TESTED AT [facility] [address] [facility] [address] BLOOD GAS, [id number] 22:23:00* Test Item Value Reference Range Interpretation [...] code = 1819) 50.0 % BASIC METABOLIC [id number] 20:15:00* Test Item Value Reference Range Interpretation [...] NOT APPLICABLE FOR DIALYSIS PATIENTS. Specimen markedly [id number] 20:07:00* Test Item Value Reference Range Interpretation Comments MAGNESIUM (BEAKER) (test code = 627) 2.6 mg/dL 1.6-2.6 RAD, CHEST, 1 VIEW, NON [id number] 19:02:00Reason for exam:->new right IJ lineShould this [...] The cardiac silhouette is unchanged. Signed: Kyle Raeeport Verified Date/Time: 06/11/2018 19:02:45 Reading Location: [facility] C013W Consult Reading Room C METABOLIC [id number] 15:15:00* Test Item Value Reference Range Interpretation [...] NOT APPLICABLE FOR DIALYSIS PATIENTS. Specimen markedly [id number] 15:09:00* Test Item Value Reference Range Interpretation Comments MAGNESIUM (BEAKER) (test code = 627) 2.6 mg/dL 1.6-2.6 POCT-GLUCOSE [id number] 13:44:00* Test Item Value Reference Range Interpretation Comments POC-GLUCOSE METER (BEAKER) (test code = 1538) 226 mg/dL 70-110 H TESTED AT [facility] [address] [place] [address] SPIN/CONCENTRATION [id number] 12:22:00* Test Item Value Reference Range Interpretation Comments CONCENTRATION CHARGED (BEAKER) (test code = 2657) Done RAD, CHEST, 1 VIEW, NON [id number] 07:49:00Reason for exam:->pulmonary edemaShould this be performed [...] Rodriguezeport Verified Date/Time: 06/11 07:49:11 Reading Location: [facility] Radiology Reading Room Amada ctronically signed by: GELA RODRIGUEZ M.D. on 06/11/2018 07:49 AM LACTIC ACID, [id number] 04:44:00* Test Item Value Reference Range Interpretation Comments LACTATE BLOOD ARTERIAL (2) (BEAKER) (test code = 2874) 0.9 mmol/L 0.5-2.2 Specimen markedly ictericBASIC METABOLIC [id number] 04:39:00* Test Item Value Reference Range Interpretation [...] NOT APPLICABLE FOR DIALYSIS PATIENTS. Specimen markedly [id number] 04:38:00* Test Item Value Reference Range Interpretation Comments PHOSPHORUS (BEAKER) (test code = 604) 6.5 mg/dL 2.3-4.7 H [id number] 04:38:00* Test Item Value Reference Range Interpretation Comments MAGNESIUM (BEAKER) (test code = 627) 2.7 mg/dL 1.6-2.6 H HEPATIC FUNCTION [id number] 04:38:00* Test Item Value Reference Range Interpretation [...] code = 380) 116 U/L 29-20 0 [id number] 04:33:00* Test Item Value Reference Range Interpretation Comments PARTIAL THROMBOPLASTIN TIME (BEAKER) (test code = 760) 50.5 seconds 22.5-36.0 H PROTHROMBIN TIME/[id number] 04:32:00* Test Item Value Reference Range Interpretation [...] mechanical heart valves.CBC W/PLT COUNT & AUTO [id number] 04:29:00* Test Item Value Reference Range Interpretation [...] = 2801) 5 % 0-1 H CALCIUM, [id number] 04:29:00* Test Item Value Reference Range Interpretation Comments CALCIUM IONIZED (BEAKER) (test code = 698) 1.05 mmol/L 1.12-1.27 L PH, BLOOD (BEAKER) (test code = 1810) 7.42 BLOOD GAS, [id number] 04:25:00* Test Item Value Reference Range Interpretation [...] code = 1819) 60.0 % BASIC METABOLIC [id number] 22:15:00* Test Item Value Reference Range Interpretation [...] GFR IS NOT APPLICABLE FOR DIALYSIS PATIENTS. [id number] 21:07:00* Test Item Value Reference Range Interpretation Comments MAGNESIUM (BEAKER) (test code = 627) 2.8 mg/dL 1.6-2.6 H Specimen slightly hemolyzed BASIC METABOLIC [id number] 18:32:00* Test Item Value Reference Range Interpretation [...] FOR DIALYSIS PATIENTS. Specimen markedly ictericBASIC METABOLIC [id number] 12:06:00* Test Item Value Reference Range Interpretation [...] NOT APPLICABLE FOR DIALYSIS PATIENTS. Specimen markedly [id number] 11:59:00* Test Item Value Reference Range Interpretation Comments MAGNESIUM (BEAKER) (test code = 627) 2.4 mg/dL 1.6-2.6 POCT-GLUCOSE [id number] 11:58:00* Test Item Value Reference Range Interpretation Comments POC-GLUCOSE METER (BEAKER) (test code = 1538) 143 mg/dL 70-110 H TESTED AT [facility] [address] [facility] [address] BRONCHIAL CULTURE + GRAM [id number] 09:24:00* Test Item Value Reference Range Interpretation Comments CULTURE (BEAKER) (test code = 1095) No growth GRAM STAIN RESULT (BEAKER) (test code = 1123) 1+ WBCs GRAM STAIN RESULT (BEAKER) (test code = 25975) No organisms seen SPUTUM CULTURE + GRAM [id number] 09:24:00* Test Item Value Reference Range Interpretation Comments CULTURE (BEAKER) (test code = 1095) No growth GRAM STAIN RESULT (BEAKER) (test code = 1123) 1+ WBCs GRAM STAIN RESULT (BEAKER) (test code = 25716) 10-15 epithelial dariel ls GRAM STAIN RESULT (BEAKER) (test code = 19539) <1+ gra m positive cocci in pairs and clusters CBC W/PLT COUNT & AUTO [id number] 08:22:00* Test Item Value Reference Range Interpretation [...] PLATELETS SEEN RAD, CHEST, 1 VIEW, NON [id number] 08:07:00Reason for exam:->pulmonary edemaShould this be performed [...] Rogel Verified Date/Time: 06/10/2018 08:07:52 Reading Location: [facility] Radiology Reading Room -GLUCOSE [id number] 05:31:00* Test Item Value Reference Range Interpretation Comments POC-GLUCOSE METER (BEAKER) (test code = 1538) 124 mg/dL 70-110 H TESTED AT [facility] [address] [facility] [address] BASIC METABOLIC [id number] 04:24:00* Test Item Value Reference Range Interpretation [...] NOT APPLICABLE FOR DIALYSIS PATIENTS. Specimen markedly [id number] 04:16:00* Test Item Value Reference Range Interpretation Comments PARTIAL THROMBOPLASTIN TIME (BEAKER) (test code = 760) 47.0 seconds 22.5-36.0 H PROTHROMBIN [id number] 04:15:00* Test Item Value Reference Range Interpretation Comments PROTIME (BEAKER) (test code = 759) 16.9 seconds 11.7-14.7 H INR (BEAKER) (test code = 370) 1.3 <=5.9 RECOMMENDED COUMADIN/WARFARIN INR THERAPY RANGESSTANDARD DOSE: 2.0 - 3.0 Inclu herb: PROPHYLAXIS for venous thrombosis, systemic embolization; TREATMENT for giulia ous thrombosis and/or pulmonary embolus.HIGH RISK: Target INR is 2.5-3.5 for pat ients with mechanical heart valves.[id number] 04:12:00* Test Item Value Reference Range Interpretation Comments MAGNESIUM (BEAKER) (test code = 627) 2.5 mg/dL 1.6-2.6 HEPATIC FUNCTION [id number] 04:12:00* Test Item Value Reference Range Interpretation [...] U/L 6-55 H Specimen markedly ictericLACTIC ACID, [id number] 03:59:00* Test Item Value Reference Range Interpretation Comments LACTATE BLOOD ARTERIAL (2) (BEAKER) (test code = 2874) 0.9 mmol/L 0.5-2.2 Specimen markedly ictericBLOOD GAS, [id number] 03:21:00* Test Item Value Reference Range Interpretation [...] (test code = 1819) 60.0 % CALCIUM, [id number] 03:19:00* Test Item Value Reference Range Interpretation Comments CALCIUM IONIZED (BEAKER) (test code = 698) 1.12 mmol/L 1.12-1.27 PH, BLOOD (BEAKER) (test code = 1810) 7.44 Check serum Ionized Calcium level after 4 hours after IV Calcium replacement. BASIC METABOLIC [id number] 00:53:00* Test Item Value Reference Range Interpretation [...] APPLICABLE FOR DIALYSIS PATIENTS. Specimen markedly ictericPOCT-GLUCOSE [id number] 00:29:00* Test Item Value Reference Range Interpretation Comments POC-GLUCOSE METER (BEAKER) (test code = 1538) 176 mg/dL 70-110 H TESTED AT [facility] [address] [facility] [address] POCT-GLUCOSE [id number] 21:27:00* Test Item Value Reference Range Interpretation Comments POC-GLUCOSE METER (BEAKER) (test code = 1538) 134 mg/dL 70-110 H TESTED AT [address] [address] [id number] 20:56:00* Test Item Value Reference Range Interpretation Comments MAGNESIUM (BEAKER) (test code = 627) 2.2 mg/dL 1.6-2.6 CALCIUM, [id number] 20:46:00* Test Item Value Reference Range Interpretation Comments CALCIUM IONIZED (BEAKER) (test code = 698) 1.08 mmol/L 1.12-1.27 L PH, BLOOD (BEAKER) (test code = 1810) 7.44 BLOOD GAS, [id number] 20:46:00* Test Item Value Reference Range Interpretation [...] (test code = 1819) 60.0 % POCT-GLUCOSE [id number] 20:20:00* Test Item Value Reference Range Interpretation Comments POC-GLUCOSE METER (BEAKER) (test code = 1538) 142 mg/dL 70-110 H TESTED AT [facility] [address] [facility] [address] BASIC METABOLIC [id number] 18:55:00* Test Item Value Reference Range Interpretation [...] PATIENTS. Specimen markedly ictericRAD, ABDOMEN/KUB, 1 VIEW [id number] 17:56:00Reason for exam:->feeding tube placement.FINAL REPORT CLINICAL [...] MDReport Verified Date/Time: 06/09/2018 17:56:44 Reading Location: [address] Reading Room -GLUCOSE [id number] 17:49:00* Test Item Value Reference Range Interpretation Comments POC-GLUCOSE METER (BEAKER) (test code = 1538) 131 mg/dL 70-110 H TESTED AT [place] [id number] [facility] [address] POCT-GLUCOSE [id number] 16:36:00* Test Item Value Reference Range Interpretation Comments POC-GLUCOSE METER (BEAKER) (test code = 1538) 112 mg/dL 70-110 H TESTED AT [address] [address] POCT-GLUCOSE [id number] 14:37:00* Test Item Value Reference Range Interpretation Comments POC-GLUCOSE METER (BEAKER) (test code = 1538) 88 mg/dL 70-110 TESTED AT [address] [address] POCT-GLUCOSE [id number] 12:48:00* Test Item Value Reference Range Interpretation Comments POC-GLUCOSE METER (BEAKER) (test code = 1538) 104 mg/dL 70-110 TESTED AT [place] [id number] [facility] [address] [id number] 12:46:00* Test Item Value Reference Range Interpretation Comments MAGNESIUM (BEAKER) (test code = 627) 2.3 mg/dL 1.6-2.6 BASIC METABOLIC [id number] 12:46:00* Test Item Value Reference Range Interpretation [...] NOT APPLICABLE FOR DIALYSIS PATIENTS. HEMOGLOBIN AND [id number] 11:59:00* Test Item Value Reference Range Interpretation Comments HEMOGLOBIN (BEAKER) (test code = 410) 8.0 GM/DL 13.7-17.5 L HEMATOCRIT (BEAKER) (test code = 411) 24.8 % 40.1-51.0 L BLOOD GAS, [id number] 11:29:00* Test Item Value Reference Range Interpretation [...] code = 1819) 60.0 % BASIC METABOLIC [id number] 07:54:00* Test Item Value Reference Range Interpretation [...] FOR DIALYSIS PATIENTS. Specimen markedly ictericBLOOD GAS, [id number] 06:45:00* Test Item Value Reference Range Interpretation [...] code = 1819) 75.0 % BASIC METABOLIC [id number] 06:44:00* Test Item Value Reference Range Interpretation [...] APPLICABLE FOR DIALYSIS PATIENTS. Specimen markedly ictericPOCT-GLUCOSE [id number] 06:22:00* Test Item Value Reference Range Interpretation Comments POC-GLUCOSE METER (BEAKER) (test code = 1538) 145 mg/dL 70-110 H TESTED AT [facility] [address] [facility] [address] [id number] 06:17:00* Test Item Value Reference Range Interpretation Comments MAGNESIUM (BEAKER) (test code = 627) 2.2 mg/dL 1.6-2.6 HEPATIC FUNCTION [id number] 06:17:00* Test Item Value Reference Range Interpretation [...] U/L 6-55 H Specimen markedly ictericBLOOD GAS, [id number] 06:04:00* Test Item Value Reference Range Interpretation [...] 75.0 % RAD, CHEST, 1 VIEW, NON [id number] 05:48:00Reason for exam:->pulmonary edemaShould this be performed [...] Avendaño Verified Date/Time: 06/09/2018 05:48:52 Reading Location: [address] Neuro Reading Room D GAS, [id number] 04:53:00* Test Item Value Reference Range Interpretation [...] (test code = 1819) 75.0 % CALCIUM, [id number] 04:52:00* Test Item Value Reference Range Interpretation Comments CALCIUM IONIZED (BEAKER) (test code = 698) 1.08 mmol/L 1.12-1.27 L PH, BLOOD (BEAKER) (test code = 1810) 7.55 POCT-GLUCOSE [id number] 04:32:00* Test Item Value Reference Range Interpretation Comments POC-GLUCOSE METER (BEAKER) (test code = 1538) 144 mg/dL 70-110 H TESTED AT [facility] [address] [facility] [address] CBC W/PLT COUNT & AUTO [id number] 04:27:00* Test Item Value Reference Range Interpretation [...] code = 2801) 3 % 0-1 H [id number] 04:21:00* Test Item Value Reference Range Interpretation Comments PARTIAL THROMBOPLASTIN TIME (BEAKER) (test code = 760) 49.5 seconds 22.5-36.0 H PROTHROMBIN TIME/[id number] 04:20:00* Test Item Value Reference Range Interpretation Comments PROTIME (BEAKER) (test code = 759) 17.8 seconds 11.7-14.7 H INR (BEAKER) (test code = 370) 1.5 <=5.9 RECOMMENDED COUMADIN/WARFARIN INR THERAPY RANGESSTANDARD DOSE: 2.0 - 3.0 Inclu herb: PROPHYLAXIS for venous thrombosis, systemic embolization; TREATMENT for giulia ous thrombosis and/or pulmonary embolus.HIGH RISK: Target INR is 2.5-3.5 for pat ients with mechanical heart valves.POCT-GLUCOSE [id number] 03:44:00* Test Item Value Reference Range Interpretation Comments POC-GLUCOSE METER (BEAKER) (test code = 1538) 147 mg/dL 70-110 H TESTED AT [facility] [address] [facility] [address] BASIC METABOLIC [id number] 03:13:00* Test Item Value Reference Range Interpretation [...] APPLICABLE FOR DIALYSIS PATIENTS. Specimen markedly ictericPOCT-GLUCOSE [id number] 02:34:00* Test Item Value Reference Range Interpretation Comments POC-GLUCOSE METER (BEAKER) (test code = 1538) 158 mg/dL 70-110 H TESTED AT [address] [address] POCT-GLUCOSE [id number] 01:37:00* Test Item Value Reference Range Interpretation Comments POC-GLUCOSE METER (BEAKER) (test code = 1538) 158 mg/dL 70-110 H TESTED AT [address] [address] POCT-GLUCOSE [id number] 23:59:00* Test Item Value Reference Range Interpretation Comments POC-GLUCOSE METER (BEAKER) (test code = 1538) 150 mg/dL 70-110 H TESTED AT [address] [address] [id number] 22:28:00* Test Item Value Reference Range Interpretation Comments MAGNESIUM (BEAKER) (test code = 627) 2.4 mg/dL 1.6-2.6 Specimen slightly hemolyzed Check Serum Potassium level 2 hours after oral potassium replacement completed o r 30 min after intravenous potassium replacement.[id number] 21:44:00* Test Item Value Reference Range Interpretation Comments POTASSIUM (BEAKER) (test code = 379) 3.6 meq/L 3.5-5.1 Specimen slightly hemolyzed Check Serum Potassium level 2 hours after oral potassium replacement completed o r 30 min after intravenous potassium replacement.CALCIUM, [id number] 21:20:00* Test Item Value Reference Range Interpretation Comments CALCIUM IONIZED (BEAKER) (test code = 698) 1.06 mmol/L 1.12-1.27 L PH, BLOOD (BEAKER) (test code = 1810) 7.52 Check serum Ionized Calcium level after 4 hours after IV Calcium replacement. BASIC METABOLIC [id number] 20:46:00* Test Item Value Reference Range Interpretation [...] APPLICABLE FOR DIALYSIS PATIENTS. Specimen markedly ictericPOCT-GLUCOSE [id number] 20:42:00* Test Item Value Reference Range Interpretation Comments POC-GLUCOSE METER (BEAKER) (test code = 1538) 158 mg/dL 70-110 H TESTED AT [facility] [address] [facility] [address] BLOOD [id number] 20:01:00* Test Item Value Reference Range Interpretation Comments CULTURE (BEAKER) (test code = 1095) No growth in 5 days BLOOD [id number] 20:01:00* Test Item Value Reference Range Interpretation Comments CULTURE (BEAKER) (test code = 1095) No growth in 5 days BLOOD GAS, [id number] 18:23:00* Test Item Value Reference Range Interpretation [...] (test code = 1819) 75.0 % POCT-GLUCOSE [id number] 18:21:00* Test Item Value Reference Range Interpretation Comments POC-GLUCOSE METER (BEAKER) (test code = 1538) 145 mg/dL 70-110 H TESTED AT [facility] [address] [facility] [address] POCT-GLUCOSE [id number] 18:21:00* Test Item Value Reference Range Interpretation Comments POC-GLUCOSE METER (BEAKER) (test code = 1538) 122 mg/dL 70-110 H TESTED AT [facility] [address] [facility] [address] CORTISOL,60 [id number] 18:04:00* Test Item Value Reference Range Interpretation [...] a study by Debbie et al (LAKEISHA [place] 1999,283(2):7066-87), the ACTH Stimulation Test provides important prognostic [...] level 60 minutes after cosyntropin administration. CORTISOL,30 [id number] 17:15:00* Test Item Value Reference Range Interpretation Comments CORTISOL BASELINE NETWORKED ([facility]) (test code = 2307) 17.6 mcg/dL CORTISOL, 30 MINUTE (GAURAVNEETU) (test code = 1804) 24.7 ug/dL ACTH [...] a study by Debbie et al (JA [place] 2000,283(3):7484-45), the ACTH Stimulation Test provides important prognostic [...] level 60 minutes after cosyntropin administration.POCT- GLUCOSE [id number] 15:59:00* Test Item Value Reference Range Interpretation Comments POC-GLUCOSE METER ([facility]) (test code = 1538) 162 mg/dL 70-110 H TESTED AT [facility] [address] [place] [address] CORTISOL,[id number] 14:41:00* Test Item Value Reference Range Interpretation [...] a study by Debbie et al (LAKEISHA [place] 1999,283(8):2385-45), the ACTH Stimulation Test provides important prognostic [...] level 60 minutes after cosyntropin administration.POCT- GLUCOSE [id number] 13:55:00* Test Item Value Reference Range Interpretation Comments POC-GLUCOSE METER (BEAKER) (test code = 1538) 158 mg/dL 70-110 H TESTED AT [address] [address] POCT-GLUCOSE [id number] 13:55:00* Test Item Value Reference Range Interpretation Comments POC-GLUCOSE METER (BEAKER) (test code = 1538) 117 mg/dL 70-110 H TESTED AT [address] [address] BASIC METABOLIC [id number] 13:17:00* Test Item Value Reference Range Interpretation [...] NOT APPLICABLE FOR DIALYSIS PATIENTS. Specimen markedly [id number] 13:13:00* Test Item Value Reference Range Interpretation Comments MAGNESIUM (BEAKER) (test code = 627) 2.5 mg/dL 1.6-2.6 POCT-GLUCOSE [id number] 12:15:00* Test Item Value Reference Range Interpretation Comments POC-GLUCOSE METER (BEAKER) (test code = 1538) 139 mg/dL 70-110 H TESTED AT [facility] [address] [facility] [address] BLOOD GAS, [id number] 11:28:00* Test Item Value Reference Range Interpretation [...] (BEAKER) (test code = 1819) 75.0 % [id number] 09:54:00* Test Item Value Reference Range Interpretation Comments MAGNESIUM (BEAKER) (test code = 627) 2.5 mg/dL 1.6-2.6 Specimen slightly hemolyzed CALCIUM, [id number] 09:22:00* Test Item Value Reference Range Interpretation Comments CALCIUM IONIZED (BEAKER) (test code = 698) 1.08 mmol/L 1.12-1.27 L PH, BLOOD (BEAKER) (test code = 1810) 7.48 Check serum Ionized Calcium level after 4 hours after IV Calcium replacement.CT, CHEST, WITHOUT [id number] 09:01:00FINAL REPORT CT scan of the chest, [...] MDReport Verified Date/Time: 06/08/2018 09:01:11 Reading Location: [address] Consult Reading Room , [id number] 09:01:00FINAL REPORT CT scan of the chest, [...] contrast.5. No other significant change. Signed: Iman Sloanepjane Verified Date/Time: 06/08/2018 09:01:11 Reading Location: [place] [id number] [place] [address] Consult Reading Room -GLUCOSE [id number] 06:37:00* Test Item Value Reference Range Interpretation Comments POC-GLUCOSE METER (BEAKER) (test code = 1538) 142 mg/dL 70-110 H TESTED AT [facility] [address] [facility] [address] BLOOD GAS, [id number] 06:34:00* Test Item Value Reference Range Interpretation [...] (BEAKER) (test code = 1819) 90.0 % [id number] 06:11:00* Test Item Value Reference Range Interpretation Comments PARTIAL THROMBOPLASTIN TIME (BEAKER) (test code = 760) 54.2 seconds 22.5-36.0 H PROTHROMBIN [id number] 06:10:00* Test Item Value Reference Range Interpretation [...] pat ients with mechanical heart valves.HEPATIC FUNCTION [id number] 05:51:00* Test Item Value Reference Range Interpretation [...] U/L 6-55 H Specimen markedly ictericBASIC METABOLIC [id number] 05:51:00* Test Item Value Reference Range Interpretation [...] APPLICABLE FOR DIALYSIS PATIENTS. Specimen markedly ictericPOCT-GLUCOSE [id number] 05:43:00* Test Item Value Reference Range Interpretation Comments POC-GLUCOSE METER (BEAKER) (test code = 1538) 140 mg/dL 70-110 H TESTED AT [facility] [address] [facility] [address] [id number] 05:36:00* Test Item Value Reference Range Interpretation Comments MAGNESIUM (BEAKER) (test code = 627) 2.3 mg/dL 1.6-2.6 [id number] 05:25:00* Test Item Value Reference Range Interpretation Comments PHOSPHORUS (BEAKER) (test code = 604) 4.9 mg/dL 2.3-4.7 H Specimen slightly hemolyzed Check Serum Phosphorus level 4 hours after IV phosphorus replacement or 8 hours after PO replacement completed.POCT-GLUCOSE [id number] 04:20:00* Test Item Value Reference Range Interpretation Comments POC-GLUCOSE METER (BEAKER) (test code = 1538) 153 mg/dL 70-110 H TESTED AT [facility] [address] [facility] [address] RAD, CHEST, 1 VIEW, NON [id number] 04:10:00Reason for exam:->s/p intubation FINAL REPORT CLINICAL [...] V erified Date/Time: 06/08/2018 04:10:15 Reading Location: [address] Reading Room W/PLT COUNT & AUTO [id number] 03:53:00* Test Item Value Reference Range Interpretation [...] = 2801) 2 % 0-1 H CALCIUM, [id number] 02:54:00* Test Item Value Reference Range Interpretation Comments CALCIUM IONIZED (BEAKER) (test code = 698) 1.09 mmol/L 1.12-1.27 L PH, BLOOD (BEAKER) (test code = 1810) 7.45 Check serum Ionized Calcium level after 4 hours after IV Calcium replacement. BLOOD GAS, [id number] 02:54:00* Test Item Value Reference Range Interpretation [...] 100.0 % RAD, CHEST, 1 VIEW, NON [id number] 02:16:00Reason for exam:->tachypneaFINAL REPORT CLINICAL INDICATION: Kidney [...] Verified Date/Time: 0 06/08/2018 02:16:21 Reading Location: [address] Reading Room E lectronically signed by: KATHERINE REICH M.D. on 06/08/2018 02:16 AM BASIC METABOLIC [id number] 01:44:00* Test Item Value Reference Range Interpretation [...] APPLICABLE FOR DIALYSIS PATIENTS. Specimen markedly ictericPOCT-GLUCOSE [id number] 01:18:00* Test Item Value Reference Range Interpretation Comments POC-GLUCOSE METER (BEAKER) (test code = 1538) 122 mg/dL 70-110 H TESTED AT [facility] [address] [facility] [address] BLOOD GAS, [id number] 01:03:00* Test Item Value Reference Range Interpretation [...] (test code = 1819) 100.0 % POCT-GLUCOSE [id number] 00:19:00* Test Item Value Reference Range Interpretation Comments POC-GLUCOSE METER (BEAKER) (test code = 1538) 136 mg/dL 70-110 H TESTED AT [address] [address] BLOOD GAS, [id number] 23:19:00* Test Item Value Reference Range Interpretation [...] (test code = 1819) 40.0 % POCT-GLUCOSE [id number] 22:58:00* Test Item Value Reference Range Interpretation Comments POC-GLUCOSE METER (BEAKER) (test code = 1538) 128 mg/dL 70-110 H TESTED AT [facility] [address] [facility] [address] POCT-GLUCOSE [id number] 22:00:00* Test Item Value Reference Range Interpretation Comments POC-GLUCOSE METER (BEAKER) (test code = 1538) 108 mg/dL 70-110 TESTED AT [address] [address] BASIC METABOLIC [id number] 21:50:00* Test Item Value Reference Range Interpretation [...] NOT APPLICABLE FOR DIALYSIS PATIENTS. Specimen markedly [id number] 21:38:00* Test Item Value Reference Range Interpretation Comments MAGNESIUM (BEAKER) (test code = 627) 2.0 mg/dL 1.6-2.6 CALCIUM, [id number] 21:15:00* Test Item Value Reference Range Interpretation Comments CALCIUM IONIZED (BEAKER) (test code = 698) 1.12 mmol/L 1.12-1.27 PH, BLOOD (BEAKER) (test code = 1810) 7.51 Check serum Ionized Calcium level after 4 hours after IV Calcium replacement. POCT-GLUCOSE [id number] 20:58:00* Test Item Value Reference Range Interpretation Comments POC-GLUCOSE METER (BEAKER) (test code = 1538) 97 mg/dL 70-110 TESTED AT [address] [address] POCT-GLUCOSE [id number] 19:42:00* Test Item Value Reference Range Interpretation Comments POC-GLUCOSE METER (BEAKER) (test code = 1538) 101 mg/dL 70-110 TESTED AT [address] [address] POCT-GLUCOSE [id number] 18:42:00* Test Item Value Reference Range Interpretation Comments POC-GLUCOSE METER (BEAKER) (test code = 1538) 97 mg/dL 70-110 TESTED AT [address] [address] BLOOD GAS, [id number] 16:56:00* Test Item Value Reference Range Interpretation [...] (test code = 1819) 100.0 % POCT-GLUCOSE [id number] 16:45:00* Test Item Value Reference Range Interpretation Comments POC-GLUCOSE METER (BEAKER) (test code = 1538) 149 mg/dL 70-110 H TESTED AT [address] [address] POCT-GLUCOSE [id number] 15:25:00* Test Item Value Reference Range Interpretation Comments POC-GLUCOSE METER (BEAKER) (test code = 1538) 74 mg/dL 70-110 TESTED AT [address] [address] POCT-GLUCOSE [id number] 14:31:00* Test Item Value Reference Range Interpretation Comments POC-GLUCOSE METER (BEAKER) (test code = 1538) 129 mg/dL 70-110 H TESTED AT [address] [address] [id number] 13:46:00* Test Item Value Reference Range Interpretation Comments MAGNESIUM (BEAKER) (test code = 627) 1.8 mg/dL 1.6-2.6 BASIC METABOLIC [id number] 13:46:00* Test Item Value Reference Range Interpretation [...] APPLICABLE FOR DIALYSIS PATIENTS. Specimen markedly ictericPOCT-GLUCOSE [id number] 13:03:00* Test Item Value Reference Range Interpretation Comments POC-GLUCOSE METER (BEAKER) (test code = 1538) 182 mg/dL 70-110 H TESTED AT [facility] [address] [facility] [address] ANTI-MITOCHONDRIAL AB, REFLEX TO [id number] 11:38:00* Test Item Value Reference Range Interpretation Comments SCAN RESULT (test code = 7454809) CBC W/PLT COUNT & AUTO [id number] 11:36:00* Test Item Value Reference Range Interpretation [...] Received comment: User comments: Slide comments: POCT-GLUCOSE [id number] 11:35:00* Test Item Value Reference Range Interpretation Comments POC-GLUCOSE METER (BEAKER) (test code = 1538) 128 mg/dL 70-110 H TESTED AT [facility] [address] [facility] [address] POCT-GLUCOSE [id number] 11:13:00* Test Item Value Reference Range Interpretation Comments POC-GLUCOSE METER (BEAKER) (test code = 1538) 97 mg/dL 70-110 TESTED AT [facility] [address] [facility] [address] POCT-GLUCOSE [id number] 11:13:00* Test Item Value Reference Range Interpretation Comments POC-GLUCOSE METER (BEAKER) (test code = 1538) 68 mg/dL 70-110 L TESTED AT [place] [id number] [facility] [address] BLOOD GAS, [id number] 10:41:00* Test Item Value Reference Range Interpretation [...] code = 1819) 100.0 % CATHETER TIP [id number] 09:30:00* Test Item Value Reference Range Interpretation Comments CULTURE (BEAKER) (test code = 1095) No growth BLOOD GAS, [id number] 08:13:00* Test Item Value Reference Range Interpretation [...] (test code = 1819) 65.0 % POCT-GLUCOSE [id number] 07:48:00* Test Item Value Reference Range Interpretation Comments POC-GLUCOSE METER (BEAKER) (test code = 1538) 127 mg/dL 70-110 H TESTED AT [facility] [address] [facility] [address] RAD, CHEST, 1 VIEW, NON [id number] 07:37:00Reason for exam:->resp failureShould this be performed [...] MDReport Verified Date/Time: 06/07/2018 07:37:40 Reading Location: [facility] Radiology Reading Room -GLUCOSE METER 2018-06-07 06:32:00* Test Item Value Reference Range Interpretation Comments POC-GLUCOSE METER (BEAKER) (test code = 1538) 165 mg/dL 70-110 H TESTED AT [facility] [address] [facility] [address] BLOOD GAS, [id number] 05:35:00* Test Item Value Reference Range Interpretation [...] (test code = 1819) 60.0 % CALCIUM, [id number] 05:35:00* Test Item Value Reference Range Interpretation Comments CALCIUM IONIZED (BEAKER) (test code = 698) 0.96 mmol/L 1.12-1.27 L PH, BLOOD (BEAKER) (test code = 1810) 7.45 HEPATIC FUNCTION [id number] 05:32:00* Test Item Value Reference Range Interpretation [...] 103 U/L 6-55 H Specimen markedly ictericPOCT-GLUCOSE [id number] 05:18:00* Test Item Value Reference Range Interpretation Comments POC-GLUCOSE METER (BEAKER) (test code = 1538) 182 mg/dL 70-110 H TESTED AT [facility] [address] [place] [address] BASIC METABOLIC [id number] 05:17:00* Test Item Value Reference Range Interpretation [...] FOR DIALYSIS PATIENTS. Specimen markedly ictericLACTIC ACID, [id number] 04:58:00* Test Item Value Reference Range Interpretation Comments LACTATE BLOOD ARTERIAL (2) (BEAKER) (test code = 2874) 1.2 mmol/L 0.5-2.2 Specimen markedly [id number] 04:50:00* Test Item Value Reference Range Interpretation Comments PARTIAL THROMBOPLASTIN TIME (BEAKER) (test code = 760) 43.5 seconds 22.5-36.0 H PROTHROMBIN [id number] 04:49:00* Test Item Value Reference Range Interpretation Comments PROTIME (BEAKER) (test code = 759) 18.1 seconds 11.7-14.7 H INR (BEAKER) (test code = 370) 1.5 <=5.9 RECOMMENDED COUMADIN/WARFARIN INR THERAPY RANGESSTANDARD DOSE: 2.0 - 3.0 Inclu herb: PROPHYLAXIS for venous thrombosis, systemic embolization; TREATMENT for giulia ous thrombosis and/or pulmonary embolus.HIGH RISK: Target INR is 2.5-3.5 for pat ients with mechanical heart valves.POCT-GLUCOSE [id number] 04:16:00* Test Item Value Reference Range Interpretation Comments POC-GLUCOSE METER (BEAKER) (test code = 1538) 180 mg/dL 70-110 H TESTED AT [address] [address] POCT-GLUCOSE [id number] 03:20:00* Test Item Value Reference Range Interpretation Comments POC-GLUCOSE METER (BEAKER) (test code = 1538) 171 mg/dL 70-110 H TESTED AT [address] [address] POCT-GLUCOSE [id number] 02:44:00* Test Item Value Reference Range Interpretation Comments POC-GLUCOSE METER (BEAKER) (test code = 1538) 154 mg/dL 70-110 H TESTED AT [address] [address] POCT-GLUCOSE [id number] 01:31:00* Test Item Value Reference Range Interpretation Comments POC-GLUCOSE METER (BEAKER) (test code = 1538) 140 mg/dL 70-110 H TESTED AT [address] [address] BASIC METABOLIC [id number] 01:02:00* Test Item Value Reference Range Interpretation [...] APPLICABLE FOR DIALYSIS PATIENTS. Specimen markedly ictericPOCT-GLUCOSE [id number] 00:57:00* Test Item Value Reference Range Interpretation Comments POC-GLUCOSE METER (BEAKER) (test code = 1538) 173 mg/dL 70-110 H TESTED AT [facility] [address] [facility] [address] POCT-GLUCOSE [id number] 23:27:00* Test Item Value Reference Range Interpretation Comments POC-GLUCOSE METER (BEAKER) (test code = 1538) 155 mg/dL 70-110 H TESTED AT [facility] [address] [facility] [address] BASIC METABOLIC [id number] 22:38:00* Test Item Value Reference Range Interpretation [...] NOT APPLICABLE FOR DIALYSIS PATIENTS. Specimen markedly [id number] 22:37:00* Test Item Value Reference Range Interpretation Comments MAGNESIUM (BEAKER) (test code = 627) 2.0 mg/dL 1.6-2.6 BLOOD GAS, [id number] 22:18:00* Test Item Value Reference Range Interpretation [...] (test code = 1819) 60.0 % CALCIUM, [id number] 22:15:00* Test Item Value Reference Range Interpretation Comments CALCIUM IONIZED (BEAKER) (test code = 698) 1.05 mmol/L 1.12-1.27 L PH, BLOOD (BEAKER) (test code = 1810) 7.46 POCT-GLUCOSE [id number] 22:08:00* Test Item Value Reference Range Interpretation Comments POC-GLUCOSE METER (BEAKER) (test code = 1538) 138 mg/dL 70-110 H TESTED AT [address] [address] POCT-GLUCOSE [id number] 21:16:00* Test Item Value Reference Range Interpretation Comments POC-GLUCOSE METER (BEAKER) (test code = 1538) 158 mg/dL 70-110 H TESTED AT [address] [address] [id number] 21:03:00* Test Item Value Reference Range Interpretation Comments POTASSIUM (BEAKER) (test code = 379) 3.8 meq/L 3.5-5.1 Check Serum Potassium level 2 hours after oral potassium replacement completed o r 30 min after intravenous potassium replacement.[id number] 21:03:00* Test Item Value Reference Range Interpretation Comments MAGNESIUM (BEAKER) (test code = 627) 2.0 mg/dL 1.6-2.6 Check Serum Potassium level 2 hours after oral potassium replacement completed o r 30 min after intravenous potassium replacement.POCT-GLUCOSE [id number] 20:15:00* Test Item Value Reference Range Interpretation Comments POC-GLUCOSE METER (BEAKER) (test code = 1538) 161 mg/dL 70-110 H TESTED AT [facility] [address] [place] [address] POCT-GLUCOSE [id number] 20:15:00* Test Item Value Reference Range Interpretation Comments POC-GLUCOSE METER (BEAKER) (test code = 1538) 113 mg/dL 70-110 H TESTED AT [address] [address] POCT-GLUCOSE [id number] 19:33:00* Test Item Value Reference Range Interpretation Comments POC-GLUCOSE METER (BEAKER) (test code = 1538) 169 mg/dL 70-110 H TESTED AT [address] [address] [id number] 17:52:00* Test Item Value Reference Range Interpretation Comments CORTISOL, TOTAL (BEAKER) (test code = 2755) 23.9 ug/dL 3.7-19.4 H C. DIFFICILE GDH [id number] 17:45:00* Test Item Value Reference Range Interpretation Comments CDT TOXIN (test code = 6627871690) Negative Negative CDT GDH ANTIGEN (test code = 4579680857) Positive Negative A C. difficile present but [...] of kit performance was done by the [facility] Microbiology Lab prior to cl inical use.BASIC METABOLIC [id number] 16:48:00* Test Item Value Reference Range Interpretation [...] APPLICABLE FOR DIALYSIS PATIENTS. Specimen markedly ictericPOCT-GLUCOSE [id number] 15:10:00* Test Item Value Reference Range Interpretation Comments POC-GLUCOSE METER (BEAKER) (test code = 1538) 78 mg/dL 70-110 TESTED AT [facility] [address] [facility] [address] TROPONIN [id number] 13:26:00* Test Item Value Reference Range Interpretation [...] acidosis, acute neurological disease, and per sistent tachyarrhythmia.[id number] 13:14:00* Test Item Value Reference Range Interpretation [...] 0.50 MG/L FEU, the Negative Predictive Value (HOSPITAL WELLNESS COORDINATOR V) regarding the exclusion of thrombosis is within 95-100% range.LACTIC ACID, [id number] 13:12:00* Test Item Value Reference Range Interpretation Comments LACTATE BLOOD ARTERIAL (2) (BEAKER) (test code = 2874) 1.3 mmol/L 0.5-2.2 Specimen markedly [id number] 12:57:00* Test Item Value Reference Range Interpretation Comments MAGNESIUM (BEAKER) (test code = 627) 2.1 mg/dL 1.6-2.6 POCT-GLUCOSE [id number] 12:21:00* Test Item Value Reference Range Interpretation Comments POC-GLUCOSE METER (BEAKER) (test code = 1538) 162 mg/dL 70-110 H TESTED AT [address] [address] BLOOD [id number] 12:01:00* Test Item Value Reference Range Interpretation Comments CULTURE (BEAKER) (test code = 1095) No growth in 5 days BLOOD [id number] 12:01:00* Test Item Value Reference Range Interpretation Comments CULTURE (BEAKER) (test code = 1095) No growth in 5 days YARI ANTIGEN WITH REFLEX TO [id number] 11:08:00* Test Item Value Reference Range Interpretation Comments YARI ANTIGEN (BEAKER) (test code = 1782) Positive YARI ANTIGEN [id number] 11:08:00* Test Item Value Reference Range Interpretation Comments YARI ANTIGEN TITER (BEAKER) (test code = 737) :4 POCT-GLUCOSE [id number] 11:00:00* Test Item Value Reference Range Interpretation Comments POC-GLUCOSE METER (BEAKER) (test code = 1538) 153 mg/dL 70-110 H TESTED AT [address] [address] RAD, CHEST, 1 VIEW, NON [id number] 10:38:00Reason for exam:->oxygen desaturation in setting of [...] made to exclude other etiologies. Signed: Andrew Sloaneport Verified Date/Time: 06/06/2018 10:38:12 Reading Location: [facility] Radiology Reading Room -NUCLEAR ANTIBODY (TOM)2018-06-06 [...] (BEAKER) (test code = 1819) 100.0 % [id number] 09:37:00* Test Item Value Reference Range Interpretation Comments LIPASE (BEAKER) (test code = 749) 6 U/L 8-78 L Specimen markedly ictericHEPATIC FUNCTION [id number] 09:37:00* Test Item Value Reference Range Interpretation [...] 347) 105 U/L 6-55 H Specimen markedly [id number] 09:36:00* Test Item Value Reference Range Interpretation Comments AMYLASE (BEAKER) (test code = 349) 17 U/L 25-125 L Specimen markedly [id number] 09:24:00* Test Item Value Reference Range Interpretation Comments CORTISOL, TOTAL (BEAKER) (test code = 2755) 19.9 ug/dL 3.7-19.4 H SPUTUM CULTURE + GRAM [id number] 08:59:00* Test Item Value Reference Range Interpretation Comments CULTURE (BEAKER) (test code = 1095) No growth GRAM STAIN RESULT (BEAKER) (test code = 1123) 3+ WBCs GRAM STAIN RESULT (BEAKER) (test code = 39321) 0-5 epithelial cells GRAM STAIN RESULT (BEAKER) (test code = 79663) No organisms seen BRONCHIAL CULTURE + GRAM [id number] 08:58:00* Test Item Value Reference Range Interpretation Comments CULTURE (BEAKER) (test code = 1095) <1+ Normal respiratory chase pr esent GRAM STAIN RESULT (BEAKER) (test code = 1123) 4+ WBCs GRAM STAIN RESULT (BEAKER) (test code = 84861) No organisms seen BRONCHIAL CULTURE + GRAM [id number] 08:58:00* Test Item Value Reference Range Interpretation Comments CULTURE (BEAKER) (test code = 1095) No growth GRAM STAIN RESULT (BEAKER) (test code = 1123) 1+ WBCs GRAM STAIN RESULT (BEAKER) (test code = 49046) No organisms seen POCT-GLUCOSE [id number] 08:15:00* Test Item Value Reference Range Interpretation Comments POC-GLUCOSE METER (BEAKER) (test code = 1538) 117 mg/dL 70-110 H TESTED AT [facility] [address] [facility] [address] CBC W/PLT COUNT & AUTO [id number] 07:36:00* Test Item Value Reference Range Interpretation [...] comment: User comments: Slide comments: BLOOD GAS, [id number] 06:28:00* Test Item Value Reference Range Interpretation [...] (test code = 1819) 80.0 % POCT-GLUCOSE [id number] 06:21:00* Test Item Value Reference Range Interpretation Comments POC-GLUCOSE METER (BEAKER) (test code = 1538) 130 mg/dL 70-110 H TESTED AT [facility] [address] [facility] [address] RAD, CHEST, 1 VIEW, NON [id number] 05:21:00Reason for exam:->hypoxiaShould this be performed at [...] Avendañoort Verified Date/Time: 06/06/2018 05:21:30 Reading Location: [facility] B1 C013V Neuro Reading Room -GLUCOSE [id number] 05:10:00* Test Item Value Reference Range Interpretation Comments POC-GLUCOSE METER (BEAKER) (test code = 1538) 144 mg/dL 70-110 H TESTED AT [facility] [address] [facility] [address] POCT-GLUCOSE [id number] 04:17:00* Test Item Value Reference Range Interpretation Comments POC-GLUCOSE METER (BEAKER) (test code = 1538) 161 mg/dL 70-110 H TESTED AT [facility] [address] [facility] [address] [id number] 04:06:00* Test Item Value Reference Range Interpretation Comments PHOSPHORUS (BEAKER) (test code = 604) 3.8 mg/dL 2.3-4.7 Check Serum Phosphorus level 4 hours after IV phosphorus replacement or 8 hours after PO replacement completed.[id number] 04:06:00* Test Item Value Reference Range Interpretation Comments MAGNESIUM (BEAKER) (test code = 627) 2.5 mg/dL 1.6-2.6 Check Serum Phosphorus level 4 hours after IV phosphorus replacement or 8 hours after PO replacement completed.BASIC METABOLIC [id number] 04:06:00* Test Item Value Reference Range Interpretation [...] 8 hours after PO replacement completed.Specimen markedly [id number] 04:02:00 * Test Item Value Reference Range Interpretation Comments PARTIAL THROMBOPLASTIN TIME (BEAKER) (test code = 760) 44.7 seconds 22.5-36.0 H PROTHROMBIN [id number] 04:00:00* Test Item Value Reference Range Interpretation [...] pat ients with mechanical heart valves.BLOOD GAS, [id number] 03:38:00* Test Item Value Reference Range Interpretation [...] code = 1819) 70.0 % BASIC METABOLIC [id number] 03:34:00* Test Item Value Reference Range Interpretation [...] APPLICABLE FOR DIALYSIS PATIENTS. Specimen markedly ictericPOCT-GLUCOSE [id number] 03:19:00* Test Item Value Reference Range Interpretation Comments POC-GLUCOSE METER (BEAKER) (test code = 1538) 171 mg/dL 70-110 H TESTED AT [address] [address] POCT-GLUCOSE [id number] 02:34:00* Test Item Value Reference Range Interpretation Comments POC-GLUCOSE METER (BEAKER) (test code = 1538) 201 mg/dL 70-110 H TESTED AT [address] [address] POCT-GLUCOSE [id number] 01:17:00* Test Item Value Reference Range Interpretation Comments POC-GLUCOSE METER (BEAKER) (test code = 1538) 174 mg/dL 70-110 H TESTED AT [address] [address] [id number] 00:15:00* Test Item Value Reference Range Interpretation Comments MAGNESIUM (BEAKER) (test code = 627) 2.3 mg/dL 1.6-2.6 POCT-GLUCOSE [id number] 00:10:00* Test Item Value Reference Range Interpretation Comments POC-GLUCOSE METER (BEAKER) (test code = 1538) 143 mg/dL 70-110 H TESTED AT [address] [address] POCT-GLUCOSE [id number] 23:18:00* Test Item Value Reference Range Interpretation Comments POC-GLUCOSE METER (BEAKER) (test code = 1538) 145 mg/dL 70-110 H TESTED AT [address] [address] POCT-GLUCOSE [id number] 22:18:00* Test Item Value Reference Range Interpretation Comments POC-GLUCOSE METER (BEAKER) (test code = 1538) 186 mg/dL 70-110 H TESTED AT [address] [address] POCT-GLUCOSE [id number] 21:23:00* Test Item Value Reference Range Interpretation Comments POC-GLUCOSE METER (BEAKER) (test code = 1538) 220 mg/dL 70-110 H TESTED AT [address] [address] POCT-GLUCOSE [id number] 20:47:00* Test Item Value Reference Range Interpretation Comments POC-GLUCOSE METER (BEAKER) (test code = 1538) 248 mg/dL 70-110 H TESTED AT [address] [address] POCT-GLUCOSE [id number] 19:10:00* Test Item Value Reference Range Interpretation Comments POC-GLUCOSE METER (BEAKER) (test code = 1538) 236 mg/dL 70-110 H TESTED AT [address] [address] POCT-GLUCOSE [id number] 18:16:00* Test Item Value Reference Range Interpretation Comments POC-GLUCOSE METER (BEAKER) (test code = 1538) 275 mg/dL 70-110 H TESTED AT [address] [address] BLOOD GAS, [id number] 17:21:00* Test Item Value Reference Range Interpretation [...] (test code = 1819) 60.0 % POCT-GLUCOSE [id number] 17:12:00* Test Item Value Reference Range Interpretation Comments POC-GLUCOSE METER (BEAKER) (test code = 1538) 304 mg/dL 70-110 H Will Repeat Test/TESTED AT [place] [id number] [facility] [address] POCT-GLUCOSE [id number] 16:01:00* Test Item Value Reference Range Interpretation Comments POC-GLUCOSE METER (BEAKER) (test code = 1538) 302 mg/dL 70-110 H TESTED AT [address] [address] BLOOD GAS, [id number] 14:06:00* Test Item Value Reference Range Interpretation [...] (BEAKER) (test code = 1819) 70.0 % [id number] 13:25:00* Test Item Value Reference Range Interpretation Comments POTASSIUM (BEAKER) (test code = 379) 4.1 meq/L 3.5-5.1 Specimen slightly hemolyzed [id number] 13:25:00* Test Item Value Reference Range Interpretation Comments GLUCOSE RANDOM (BEAKER) (test code = 652) 346 mg/dL 70-105 H BASIC METABOLIC [id number] 13:18:00* Test Item Value Reference Range Interpretation [...] NOT APPLICABLE FOR DIALYSIS PATIENTS. Specimen markedly [id number] 13:17:00* Test Item Value Reference Range Interpretation Comments MAGNESIUM (BEAKER) (test code = 627) 2.4 mg/dL 1.6-2.6 Specimen slightly hemolyzed BASIC METABOLIC [id number] 13:17:00* Test Item Value Reference Range Interpretation [...] APPLICABLE FOR DIALYSIS PATIENTS. Specimen markedly ictericPOCT-GLUCOSE [id number] 11:46:00* Test Item Value Reference Range Interpretation Comments POC-GLUCOSE METER (BEAKER) (test code = 1538) 297 mg/dL 70-110 H TESTED AT [facility] [address] [facility] [address] RAD, CHEST, 1 VIEW, NON [id number] 11:28:00Reason for exam:->resp failureShould this be performed at the bedside?->YesFINAL REPORT AP chest HISTORY: Respiratory failure. COMPARISON: 06/04/2018. IMPRESSION: Supportive lines unchanged. Hypoinflation. Asymmetric interstitial opacities, left greater than right, increased from previous. No pneumothorax. Signed: Eric Andrade MDReport Verified Date/Time: 06/05/2018 11:28:49 Reading Location: [facility] Radiology Reading Room IRATORY PANEL [facility] 2018-06-05 09:47:00* Test Item Value Reference [...] decisions. This sample was tested at the [facility] Molecular Diagnostics Laboratory using the [employer] FilmA rray Respiratory Panel. It is FDA cleared and has been verified and approved by the [facility] for clinical use on nasal swab specim ens. It is not FDA-cleared for use on bronchial wash/lavage samples. However, fo r this sample type, validation was performed and test characteristics were deter mined and approved, by [facility] laboratory for clinical use u nder the Clinical Laboratory Improvement Amendments (CLIA) of 1988 requirements. Therefore, FDA clearance is not required. This laboratory is CLIA-certified an d [employer] ([employer])-accredited to perform high complexity t esting.CBC W/PLT COUNT & AUTO [id number] 07:05:00* Test Item Value Reference Range Interpretation [...] quate Received comment: User comments: Slide comments: [id number] 06:05:00* Test Item Value Reference Range Interpretation Comments PROCALCITONIN (BEAKER) (test code = 3036) 2.30 ng/mL <0.05 H SEPSIS RISK (ng/mL)Low: 0.05-0.50Intermediate: 0.51-2.00High: > =2.01LACTIC ACID, [id number] 05:39:00* Test Item Value Reference Range Interpretation Comments LACTATE BLOOD ARTERIAL (2) (BEAKER) (test code = 2874) 1.3 mmol/L 0.5-2.2 Specimen slightly hemolyzed Specimen markedly ictericCALCIUM, [id number] 04:12:00* Test Item Value Reference Range Interpretation Comments CALCIUM IONIZED (BEAKER) (test code = 698) 0.98 mmol/L 1.12-1.27 L PH, BLOOD (BEAKER) (test code = 1810) 7.43 Check serum Ionized Calcium level after 4 hours after IV Calcium replacement. BLOOD GAS, [id number] 04:06:00* Test Item Value Reference Range Interpretation [...] (test code = 1819) 75.0 % PTH, [id number] 04:05:00* Test Item Value Reference Range Interpretation Comments PARATHYROID HORMONE INTACT (BEAKER) (test code = 577) 183.2 pg/mL 8.5-72.5 H [id number] 04:04:00* Test Item Value Reference Range Interpretation Comments PARTIAL THROMBOPLASTIN TIME (BEAKER) (test code = 760) 48.3 seconds 22.5-36.0 H PROTHROMBIN [id number] 04:03:00* Test Item Value Reference Range Interpretation [...] = 380) 90 U/L 29-20 0 POCT-GLUCOSE [id number] 00:47:00* Test Item Value Reference Range Interpretation Comments POC-GLUCOSE METER (BEAKER) (test code = 1538) 277 mg/dL 70-110 H TESTED AT [facility] [address] [facility] [address] CALCIUM, [id number] 00:37:00* Test Item Value Reference Range Interpretation Comments CALCIUM IONIZED (BEAKER) (test code = 698) 0.95 mmol/L 1.12-1.27 L PH, BLOOD (BEAKER) (test code = 1810) 7.44 Check serum Ionized Calcium level after 4 hours after IV Calcium replacement. [id number] 00:36:00* Test Item Value Reference Range Interpretation Comments POTASSIUM (BEAKER) (test code = 379) 3.9 meq/L 3.5-5.1 8 hours after PO replacement [id number] 20:35:00* Test Item Value Reference Range Interpretation Comments MAGNESIUM (BEAKER) (test code = 627) 2.3 mg/dL 1.6-2.6 BASIC METABOLIC [id number] 20:35:00* Test Item Value Reference Range Interpretation [...] FOR DIALYSIS PATIENTS. Specimen markedly ictericU/S, ABDOMINAL, [id number] 18:10:00Abdomen limited area? Add comment if clarification [...] MDReport Verified Date/Time: 06/04/2018 18:10:46 Reading Location: [facility] B1 P006J Ultrasound Reading Room -GLUCOSE METER 2018-06-04 17:48:00* Test Item Value Reference Range Interpretation Comments POC-GLUCOSE METER (BEAKER) (test code = 1538) 294 mg/dL 70-110 H TESTED AT [facility] [address] [facility] [address] CALCIUM, [id number] 15:55:00* Test Item Value Reference Range Interpretation Comments CALCIUM IONIZED (BEAKER) (test code = 698) 0.98 mmol/L 1.12-1.27 L PH, BLOOD (BEAKER) (test code = 1810) 7.50 RAD, ABDOMEN/KUB, 1 VIEW [id number] 14:34:00Reason for exam:->Cortrak placementFINAL REPORT Abdomen. CLINICAL HISTORY: Corpak placement. Comparison study: None available. FINDINGS: A single supine view the abdomen demonstrates a feeding tube in place, the distal aspect coiled near the antrum with the tip projecting over the mid stomach. This film is insensitive for the detection of free air. Signed: Andrew Sloan MDReport Verified Date/Time: 06/04/2018 14:34:10 Reading Location: [facility] B1 C013W Consult Reading Room C METABOLIC [id number] 14:26:00* Test Item Value Reference Range Interpretation [...] FOR DIALYSIS PATIENTS. Specimen markedly ictericLACTIC ACID, [id number] 14:09:00* Test Item Value Reference Range Interpretation Comments LACTATE BLOOD ARTERIAL (2) (BEAKER) (test code = 2874) 1.2 mmol/L 0.5-2.2 Specimen markedly ictericPOCT-GLUCOSE [id number] 13:35:00* Test Item Value Reference Range Interpretation Comments POC-GLUCOSE METER (BEAKER) (test code = 1538) 247 mg/dL 70-110 H TESTED AT [facility] [address] [facility] [address] [id number] 11:32:00* Test Item Value Reference Range Interpretation Comments MAGNESIUM (BEAKER) (test code = 627) 2.1 mg/dL 1.6-2.6 Specimen slightly hemolyzed BASIC METABOLIC [id number] 11:32:00* Test Item Value Reference Range Interpretation [...] FOR DIALYSIS PATIENTS. Specimen markedly ictericVANCOMYCIN LEVEL, [id number] 11:20:00* Test Item Value Reference Range Interpretation Comments VANCOMYCIN RANDOM (BEAKER) (test code = 523) 27.0 ug/mL Reference Range: No NormalsURINALYSIS W/ REFLEX URINE [id number] 11:15:00 * Test Item Value Reference Range [...] = 2795) RAD, CHEST, 1 VIEW, NON [id number] 11:01:00Reason for exam:->ETT advancement, L IJ CVC placement, R IJ CVC removalShould this be performed at the bedside?->YesFINAL REPORT TECHNIQUE: Frontal chest radiographs dated 06/04/2018. CLINICAL HISTORY: Endotracheal tube advancement COMPARISON STUDY: Chest radiograph dated 06/04/2018 IMPRESSION:Endotracheal tube is unchanged in position. There is a new left-sided vascular line with the tip projected over the superior vena cava at the level of the vitkoria. Right-sided vascular line and enteric tube have been removed. There is stable linear atelectasis throughout the lungs. No pleural effusion or pneumothorax. Cardiomediastinal silhouette is normal in size. No pulmonary edema. No fracture. Signed: Sb Shieldseport Verified Date/Time: 06/04/2018 11:01:19 Reading Location: [facility] Radiology Reading Room C METABOLIC [id number] 10:59:00* Test Item Value Reference Range Interpretation [...] NOT APPLICABLE FOR DIALYSIS PATIENTS. Specimen markedly [id number] 10:53:00* Test Item Value Reference Range Interpretation Comments AMYLASE (BEAKER) (test code = 349) 32 U/L 25-125 Specimen markedly [id number] 10:53:00* Test Item Value Reference Range Interpretation Comments LIPASE (BEAKER) (test code = 749) 27 U/L 8-78 Specimen markedly ictericBLOOD GAS, [id number] 10:51:00* Test Item Value Reference Range Interpretation [...] (test code = 368) 5.3 % 4.3-6.1 [id number] 09:15:00* Test Item Value Reference Range Interpretation Comments PROCALCITONIN (BEAKER) (test code = 3036) 2.96 ng/mL <0.05 H SEPSIS RISK (ng/mL)Low: 0.05-0.50Intermediate: 0.51-2.00High: > =2.01RAD, CHEST, 1 VIEW, NON [id number] 09:01:00Reason for exam:->ARDSFINAL REPORT TECHNIQUE: Frontal chest radiograph dated . CLINICAL HISTORY: ARDS COMPARISON STUDY: Chest radiograph dated 9 IMPRESSION:Life support tubes and lines are unchanged. There is stable atelect asis in the left lung base. No pleural effusion or pneumothorax. Cardiomediastin al silhouette is normal in size. No pulmonary edema. No fracture. Signed: Sb [place] Verified Date/Time: 06/04/2018 09:01:21 Reading Location : [facility] Radiology Reading Room IC ACID, [id number] 08:49:00* Test Item Value Reference Range Interpretation Comments LACTATE BLOOD ARTERIAL (2) (BEAKER) (test code = 2874) 1.4 mmol/L 0.5-2.2 Specimen moderately ictericBLOOD GAS, [id number] 05:26:00* Test Item Value Reference Range Interpretation [...] code = 1819) 80.0 % COMPREHENSIVE METABOLIC [id number] 04:41:00* Test Item Value Reference Range Interpretation [...] FOR DIALYSIS PATIENTS. Specimen markedly ictericHEPATIC FUNCTION [id number] 04:41:00* Test Item Value Reference Range Interpretation [...] U/L 6-55 H Specimen markedly ictericLACTIC ACID, [id number] 04:32:00* Test Item Value Reference Range Interpretation Comments LACTATE BLOOD ARTERIAL (2) (BEAKER) (test code = 2878) 1.6 mmol/L 0.5-2.2 Specimen markedly [id number] 04:31:00* Test Item Value Reference Range Interpretation Comments FIBRINOGEN LEVEL (BEAKER) (test code = 658) 592 mg/dl 225-434 H PT/[id number] 04:31:00* Test Item Value Reference Range Interpretation [...] 2.5-3.5 for pat ients with mechanical heart valves.[id number] 04:31:00* Test Item Value Reference Range Interpretation Comments PARTIAL THROMBOPLASTIN TIME (BEAKER) (test code = 760) 41.5 seconds 22.5-36.0 H PROTHROMBIN TIME/[id number] 04:30:00* Test Item Value Reference Range Interpretation [...] mechanical heart valves.CBC W/PLT COUNT & AUTO [id number] 04:15:00* Test Item Value Reference Range Interpretation [...] = 2801) 3 % 0-1 H POCT-GLUCOSE [id number] 23:44:00* Test Item Value Reference Range Interpretation Comments POC-GLUCOSE METER (BEAKER) (test code = 1538) 195 mg/dL 70-110 H TESTED AT [facility] [address] [facility] [address] RAD, CHEST, 1 VIEW, NON [id number] 21:14:00Reason for exam:->respiratory failure/hypoxiaShould this be performed [...] MDReport Verified Date/Time: 09/2018 21:14:49 Reading Location: [facility] C013W Consult Reading Room Electro nically signed by: SADIQ HAINES M.D. on 06/03/2018 09:14 PM FERRITIN 2018-06-03 21:11:00* Test Item Value Reference Range Interpretation Comments FERRITIN (BEAKER) (test code = 361) 1898 ng/mL 5-275 H HEPATITIS B SURFACE [id number] 20:52:00* Test Item Value Reference Range Interpretation Comments HEPATITIS B SURFACE ANTIBODY (BEAKER) (test code = 647) < mIU/mL <8.0 HEPATITIS B SURFACE [id number] 20:51:00* Test Item Value Reference Range Interpretation Comments HEPATITIS B SURFACE ANTIGEN (2) (BEAKER) (test code = 2585) Nonreactive Nonreactive HEPATITIS C [id number] 20:51:00* Test Item Value Reference Range Interpretation Comments HEPATITIS C ANTIBODY (BEAKER) (test code = 367) Nonreactive Nonrea ctive HEPATITIS B CORE ANTIBODY, [id number] 20:51:00* Test Item Value Reference Range Interpretation Comments HEPATITIS B CORE TOTAL ANTIBODY (BEAKER) (test code = 497) N onreactive Nonreactive [id number] 20:48:00* Test Item Value Reference Range Interpretation Comments MAGNESIUM (BEAKER) (test code = 627) 1.9 mg/dL 1.6-2.6 BASIC METABOLIC [id number] 20:48:00* Test Item Value Reference Range Interpretation [...] DIALYSIS PATIENTS. Specimen markedly ictericHEPATITIS A ANTIBODY, [id number] 20:45:00* Test Item Value Reference Range Interpretation Comments HEPATITIS A IGG ANTIBODY (BEAKER) (test code = 2797) Reactive N onreactive A ALPHA FETOPROTEIN (AFP), TUMOR [id number] 20:44:00* Test Item Value Reference Range Interpretation Comments ALPHA-FETOPROTEIN (BEAKER) (test code = 1094) 6.3 ng/mL <10.0 HEPATITIS B CORE ANTIBODY, [id number] 20:44:00* Test Item Value Reference Range Interpretation Comments HEPATITIS B CORE IGM ANTIBODY (BEAKER) (test code = 645) Non reactive Nonreactive HEPATITIS A ANTIBODY, [id number] 20:44:00* Test Item Value Reference Range Interpretation [...] 2590) 40 % 20-5 5 BLOOD GAS, [id number] 20:25:00* Test Item Value Reference Range Interpretation [...] 1819) 100.0 % SPUTUM CULTURE + GRAM [id number] 19:38:00* Test Item Value Reference Range Interpretation Comments CULTURE (BEAKER) (test code = 1095) <1+ Normal respiratory chase pr esent GRAM STAIN RESULT (BEAKER) (test code = 1123) 1+ White blood cells seen GRAM STAIN RESULT (BEAKER) (test code = 06828) 0-5 epithelial cells GRAM STAIN RESULT (BEAKER) (test code = 48592) <1+ gram negative ro ds URINALYSIS W/ REFLEX URINE [id number] 18:20:00* Test Item Value Reference Range Interpretation [...] SOURCE(BEAKER) (test code = 2795) BLOOD GAS, [id number] 17:17:00* Test Item Value Reference Range Interpretation [...] (BEAKER) (test code = 1819) 60.0 % LDBVA-9-[id number] 16:17:00* Test Item Value Reference Range Interpretation Comments ALPHA-1 ANTITRYPSIN (BEAKER) (test code = 502) > mg/dL 90.00-2 00.00 H [id number] 14:26:00* Test Item Value Reference Range Interpretation Comments MAGNESIUM (BEAKER) (test code = 627) 2.0 mg/dL 1.6-2.6 BASIC METABOLIC [id number] 14:26:00* Test Item Value Reference Range Interpretation [...] FOR DIALYSIS PATIENTS. Specimen markedly ictericBLOOD GAS, [id number] 13:25:00* Test Item Value Reference Range Interpretation [...] code = 1819) 40.0 % VANCOMYCIN LEVEL, [id number] 11:06:00* Test Item Value Reference Range Interpretation Comments VANCOMYCIN TROUGH (BEAKER) (test code = 522) 45.6 ug/mL 10.0-20.0 HH BLOOD GAS, [id number] 09:54:00* Test Item Value Reference Range Interpretation [...] 40.0 % RAD, CHEST, 1 VIEW, NON [id number] 05:04:00Reason for exam:->ARDSFINAL REPORT Chest one view. [...] Ceballos Verified Date/Time: 06/03/2018 05:04:55 Reading Location: [facility] C013Y CT [...] 700) 405 pg/mL 0-100 H LACTIC ACID, [id number] 04:01:00* Test Item Value Reference Range Interpretation Comments LACTATE BLOOD ARTERIAL (2) (BEAKER) (test code = 2874) 0.7 mmol/L 0.5-2.2 Specimen moderately ictericCBC W/PLT COUNT & AUTO [id number] 03:57:00* Test Item Value Reference Range Interpretation [...] code = 2801) 3 % 0-1 H [id number] 03:48:00* Test Item Value Reference Range Interpretation Comments FIBRINOGEN LEVEL (BEAKER) (test code = 658) 644 mg/dl 225-434 H PT/[id number] 03:48:00* Test Item Value Reference Range Interpretation [...] pat ients with mechanical heart valves.BLOOD GAS, [id number] 03:36:00* Test Item Value Reference Range Interpretation [...] (test code = 1819) 40.0 % POCT-GLUCOSE [id number] 02:21:00* Test Item Value Reference Range Interpretation Comments POC-GLUCOSE METER (BEAKER) (test code = 1538) 225 mg/dL 70-110 H TESTED AT [facility] [address] [facility] [address] [id number] 21:48:00* Test Item Value Reference Range Interpretation Comments MAGNESIUM (BEAKER) (test code = 627) 2.2 mg/dL 1.6-2.6 BASIC METABOLIC [id number] 21:48:00* Test Item Value Reference Range Interpretation [...] NOT APPLICABLE FOR DIALYSIS PATIENTS. Specimen markedly [id number] 17:35:00* Test Item Value Reference Range Interpretation Comments MAGNESIUM (BEAKER) (test code = 627) 2.8 mg/dL 1.6-2.6 H Specimen moderately hemolyzed [id number] 17:35:00* Test Item Value Reference Range Interpretation Comments POTASSIUM (BEAKER) (test code = 379) 4.5 meq/L 3.5-5.1 Specimen moderately hemolyzed [id number] 15:15:00* Test Item Value Reference Range Interpretation Comments PROCALCITONIN (BEAKER) (test code = 3036) 1.58 ng/mL <0.05 H SEPSIS RISK (ng/mL)Low: 0.05-0.50Intermediate: 0.51-2.00High: > =2.01B-TYPE NATRIURETIC FACTOR (BNP)2018-06-02 14:09:00* Test Item Value Reference Range Interpretation Comments B-TYPE NATRIURETIC PEPTIDE (BEAKER) (test code = 700) 286 pg/mL 0-100 H [id number] 13:51:00* Test Item Value Reference Range Interpretation Comments PARTIAL THROMBOPLASTIN TIME (BEAKER) (test code = 760) 42.9 seconds 22.5-36.0 H PROTHROMBIN TIME/[id number] 13:50:00* Test Item Value Reference Range Interpretation [...] pat ients with mechanical heart valves.BLOOD GAS, [id number] 13:33:00* Test Item Value Reference Range Interpretation [...] (test code = 1819) 40.0 % GLUCOSE-STAT [id number] 13:33:00* Test Item Value Reference Range Interpretation Comments GLUCOSE RANDOM (BEAKER) (test code = 652) 174 mg/dL 70-110 H TSH/FREE T4 IF [id number] 07:15:00* Test Item Value Reference Range Interpretation Comments THYROID STIMULATING HORMONE (BEAKER) (test code = 772) 1.76 uIU/mL 0.35-4.94 COMPREHENSIVE METABOLIC [id number] 03:52:00* Test Item Value Reference Range Interpretation [...] Specimen markedly ictericRAD, CHEST, 1 VIEW, NON [id number] 03:35:00Reason for exam:->ARDSFINAL REPORT Chest one view. [...] no pneumothorax or pleural effusion. Signed: Nicolás [facility]osepl[facility] Verified Date/Time: 06/02/2018 03:35:13 Reading Location: [facility] B1 C013Y CT Body Reading Room /[id number] 03:12:00* Test Item Value Reference Range Interpretation [...] 2.5-3.5 for pat ients with mechanical heart valves.[id number] 03:03:00* Test Item Value Reference Range Interpretation Comments FIBRINOGEN LEVEL (BEAKER) (test code = 658) 695 mg/dl 225-434 H LACTIC ACID, [id number] 03:02:00* Test Item Value Reference Range Interpretation Comments LACTATE BLOOD ARTERIAL (2) (BEAKER) (test code = 2874) 0.7 mmol/L 0.5-2.2 Specimen markedly ictericCBC W/PLT COUNT & AUTO [id number] 02:53:00 * Test Item Value Reference Range [...] 2801) 2 % 0-1 H BLOOD GAS, [id number] 02:53:00* Test Item Value Reference Range Interpretation [...] code = 1819) 60.0 % BLOOD GAS, [id number] 00:24:00* Test Item Value Reference Range Interpretation [...] code = 1819) 60.0 % BASIC METABOLIC [id number] 17:38:00* Test Item Value Reference Range Interpretation [...] FOR DIALYSIS PATIENTS. Specimen markedly ictericBLOOD GAS, [id number] 17:10:00* Test Item Value Reference Range Interpretation [...] (test code = 1819) 60.0 % Blood [id number] 17:08:00* Test Item Value Reference Range Interpretation Comments Blood Culture (test code = 15602585) NO GROWTH AFTER 5 DAYS, FINAL REPORT [facility]villeU/S, ABDOMINAL, [id number] 15:11:00Abdomen limited area? Add comment if clarification [...] MDReport Verified Date/Time: 06/01/2018 15:11:50 Reading Location: [address] Consult Reading Room A GLUTAMYL TRANSFERASE (GGT) 2018-06-01 14:41:00* Test Item Value Reference Range Interpretation Comments GAMMA GLUTAMYL TRANSFERASE (BEAKER) (test code = 364) 136 U/L 9-64 H Specimen markedly ictericBLOOD GAS, [id number] 14:18:00* Test Item Value Reference Range Interpretation [...] = 1819) 60.0 % CT, CHEST, WITHOUT [id number] 13:38:00FINAL REPORT TECHNIQUE: CT of the chest, [...] rt Verified Date/Time: 06/01/2018 13:38:09 Reading Location: [facility] C013X Ortho Consult Reading Room Electronically signed by: KYLE RAE MD on 07/2018 01:[address], [id number] 13:38:00FINAL REPORT TECHNIQUE: CT of the chest, [...] rt Verified Date/Time: 06/01/2018 13:38:09 Reading Location: [address] Ortho Consult Reading Room Electronically signed by: KYLE RAE MD on 07/2018 01:[address], BRAIN, WITHOUT [id number] 13:10:00FINAL REPORT CT, BRAIN, WITHOUT CONTRAST CLINICAL [...] Verified Date/Time: 06/01/2018 13:10:29 Reading Lo cation: [facility] B1 C013V Neuro Reading Room D GAS, [id number] 11:45:00* Test Item Value Reference Range Interpretation [...] 1819) 80.0 % URINALYSIS W/ REFLEX URINE [id number] 11:13:00* Test Item Value Reference Range Interpretation [...] 1414) 16.4 % 0.0-5.0 H COMPREHENSIVE METABOLIC [id number] 10:13:00* Test Item Value Reference Range Interpretation [...] 248 U/L 125-2 20 H HEPATIC FUNCTION [id number] 09:21:00* Test Item Value Reference Range Interpretation [...] = 347) 32 U/L 6-55 Specimen markedly inzsbmeROSLQAIKRD1847-20-14 09:20:00* Test Item Value Reference Range Interpretation Comments FIBRINOGEN LEVEL (BEAKER) (test code = 658) 729 mg/dl 225-434 H PT/[id number] 09:20:00* Test Item Value Reference Range Interpretation [...] 2.5-3.5 for pat ients with mechanical heart valves.[id number] 09:20:00* Test Item Value Reference Range Interpretation Comments PHOSPHORUS (BEAKER) (test code = 604) 3.9 mg/dL 2.3-4.7 [id number] 09:20:00* Test Item Value Reference Range Interpretation Comments MAGNESIUM (BEAKER) (test code = 627) 2.3 mg/dL 1.6-2.6 LACTIC ACID, [id number] 09:17:00* Test Item Value Reference Range Interpretation Comments LACTATE BLOOD ARTERIAL (2) (BEAKER) (test code = 2874) 0.7 mmol/L 0.5-2.2 Specimen markedly ictericCBC W/PLT COUNT & AUTO [id number] 09:13:00 * Test Item Value Reference Range [...] 2801) 3 % 0-1 H OXYGEN SATURATION, [id number] 09:07:00* Test Item Value Reference Range Interpretation Comments O2 SATURATION (MEASURED) (BEAKER) (test code = 1455) 80.9 % CALCIUM, [id number] 09:06:00* Test Item Value Reference Range Interpretation Comments CALCIUM IONIZED (BEAKER) (test code = 698) 1.01 mmol/L 1.12-1.27 L PH, BLOOD (BEAKER) (test code = 1810) 7.40 BLOOD GAS, [id number] 09:05:00* Test Item Value Reference Range Interpretation [...] code = 1819) 100.0 % SODIUM NA-STAT [id number] 09:05:00* Test Item Value Reference Range Interpretation Comments SODIUM (BEAKER) (test code = 381) 127 meq/L 135-148 L GLUCOSE-STAT [id number] 09:05:00* Test Item Value Reference Range Interpretation Comments GLUCOSE RANDOM (BEAKER) (test code = 652) 181 mg/dL 70-110 H HGB/HCT (H&H) - STAT [id number] 09:05:00* Test Item Value Reference Range Interpretation Comments HEMOGLOBIN (BEAKER) (test code = 410) 10.4 g/dL 13.0-16.8 L HEMATOCRIT (BEAKER) (test code = 411) 31.0 % 40.0-50.0 L POTASSIUM-STAT [id number] 09:02:00* Test Item Value Reference Range Interpretation Comments POTASSIUM (BEAKER) (test code = 379) 4.6 meq/L 3.6-5.5 RAD, CHEST, 1 VIEW, NON [id number] 08:51:00Reason for exam:->ARFShould this be performed at [...] obscured.Additional findings: None. Signed: JR Linda, Angelic REJIeport Verified Date/Time: 06/01/2018 08:51:32 Reading Location: [facility] C013V Neuro Reading Room D GAS, [id number] 08:32:00* Test Item Value Reference Range Interpretation [...] code = 1819) 100.0 % SODIUM NA-STAT [id number] 08:32:00* Test Item Value Reference Range Interpretation Comments SODIUM (BEAKER) (test code = 381) 127 meq/L 135-148 L GLUCOSE-STAT [id number] 08:32:00* Test Item Value Reference Range Interpretation Comments GLUCOSE RANDOM (BEAKER) (test code = 652) 171 mg/dL 70-110 H HGB/HCT (H&H) - STAT [id number] 08:32:00* Test Item Value Reference Range Interpretation Comments HEMOGLOBIN (BEAKER) (test code = 410) 10.5 g/dL 13.0-16.8 L HEMATOCRIT (BEAKER) (test code = 411) 31.0 % 40.0-50.0 L CALCIUM, [id number] 08:32:00* Test Item Value Reference Range Interpretation Comments CALCIUM IONIZED (BEAKER) (test code = 698) 1.00 mmol/L 1.12-1.27 L PH, BLOOD (BEAKER) (test code = 1810) 7.43 POTASSIUM-STAT [id number] 08:30:00* Test Item Value Reference Range Interpretation Comments POTASSIUM (BEAKER) (test code = 379) 5.4 meq/L 3.6-5.5 Sodium [id number] 03:33:00* Test Item Value Reference Range Interpretation Comments Sodium Level (test code = 2951-2) 130 136-145 L [facility] GreenvillePotassium Kfkxp1768-31-32 03:33:00* Test Item Value Reference Range Interpretation Comments Potassium Level (test code = 2823-3) 5.1 3.5-5.1 SPECIMEN SLIGHTLY ICTERICHunt [facility] Medical Center at GreenvilleChloride Level 2018-06-01 03:33:00* Test Item Value Reference Range Interpretation Comments Chloride Level (test code = 2075-0) 93 98-107 L [facility] GreenvilleCarbon Dioxide Emssj7037-10-23 03:33:00* Test Item Value Reference Range Interpretation Comments Carbon Dioxide Level (test code = 2028-9) 25 22-29 [facility] GreenvilleAnion Uri6725-12-20 03:33:00* Test Item Value Reference Range Interpretation Comments Anion Gap (test code = 16126-6) 17.1 8-16 H [facility] GreenvilleBlood Urea Axitrypr8366-60-08 03:33:00* Test Item Value Reference Range Interpretation Comments Blood Urea Nitrogen (test code = 3094-0) 25 7-26 VERIFIED PREVIOUS RESULTSHunt Regional Medical Center at GreenvilleCreatinine 2018-06-01 03:33:00* Test Item Value Reference Range Interpretation Comments Creatinine (test code = 2160-0) 1.47 0.72-1.25 H [facility] GreenvilleBUN/Creatinine Ffwbc9274-55-13 03:33:00* Test Item Value Reference Range Interpretation Comments BUN/Creatinine Ratio (test code = 3097-3) 17 6-25 [facility] GreenvilleEstimat Glomerular Filtration Rate 2018-06-01 03:33:00* Test Item Value Reference Range Interpretation Comments Estimat Glomerular Filtration Rate (test code = 236172681) 53 >60 L Ranges were taken from the National Kidney Disease Education Program and the [facility] Kid[facility] Foundation literature.Reference ranges:60 or greater: Zmhxla32-55 ( for 3 consecutive months): Chronic kidney disease 15 or less: Kidney failureHunt Regional Medical Center at GreenvilleGlucose Eqsmq1849-19-78 03:33:00* Test Item Value Reference Range Interpretation Comments Glucose Level (test code = IPQ6535) 160 74-118 H [facility] GreenvilleCalcium Ppkyt2000-47-24 03:33:00* Test Item Value Reference Range Interpretation Comments Calcium Level (test code = 57270-1) 8.1 8.4-10.2 L [facility] GreenvilleMagnesium Jywou4466-50-87 03:33:00* Test Item Value Reference Range Interpretation Comments Magnesium Level (test code = 15641-9) 2.3 1.3-2.1 H [facility] GreenvilleMagnesium Jtijn0812-79-04 03:33:00* Test Item Value Reference Range Interpretation Comments Magnesium Level (test code = 57032-2) 2.3 1.3-2.1 H [facility] GreenvilleWhite Blood Cvgya1260-94-23 03:21:00* Test Item Value Reference Range Interpretation Comments White Blood Count (test code = 6690-2) 20.59 4.8-10.8 H [facility] at GreenvilleRed Blood Yuywl1061-99-16 03:21:00* Test Item Value Reference Range Interpretation Comments Red Blood Count (test code = 789-8) 2.65 4.3-5.7 L [facility] GreenvilleHemoglobin2019-04-06 03:21:00* Test Item Value Reference Range Interpretation Comments Hemoglobin (test code = 08872-3) 9.6 14.0-18.0 L [facility] GreenvilleHematocrit2019-04-06 03:21:00* Test Item Value Reference Range Interpretation Comments Hematocrit (test code = 4544-3) 29.1 38.2-49.6 L [facility] GreenvilleMean Corpuscular Bdcjop8527-52-38 03:21:00* Test Item Value Reference Range Interpretation Comments Mean Corpuscular Volume (test code = 787-2) 109.8 81-99 H [facility] at GreenvilleMean Corpuscular Npsddrjvrz6245-94-53 03:21:00* Test Item Value Reference Range Interpretation Comments Mean Corpuscular Hemoglobin (test code = 785-6) 36.2 28-32 H [facility] at GreenvilleMean Corpuscular Hemoglobin Concent 2018-06-01 03:21:00* Test Item Value Reference Range Interpretation Comments Mean Corpuscular Hemoglobin Concent (test code = 786-4) 33.0 31-35 [facility] GreenvilleRed Cell Distribution Onnpq0453-50-05 03:21:00* Test Item Value Reference Range Interpretation Comments Red Cell Distribution Width (test code = 35425-1) 13.3 11.7 -14.4 [facility] GreenvillePlatelet Xxphv2051-38-80 03:21:00* Test Item Value Reference Range Interpretation Comments Platelet Count (test code = 777-3) 321 140-360 [facility] GreenvilleNeutrophils (%) (Auto)2018-06-01 03:21:00 * Test Item Value Reference Range Interpretation Comments Neutrophils (%) (Auto) (test code = 40510-9) 91.1 38.7-80.0 H [facility] GreenvilleLymphocytes (%) (Auto)2018-06-01 03:21:00 * Test Item Value Reference Range Interpretation Comments Lymphocytes (%) (Auto) (test code = 736-9) 3.4 18.0-39.1 L [facility] GreenvilleMonocytes (%) (Auto)2018-06-01 03:21:00* Test Item Value Reference Range Interpretation Comments Monocytes (%) (Auto) (test code = 5905-5) 2.9 4.4-11.3 L [facility] GreenvilleEosinophils (%) (Auto)2018-06-01 03:21:00 * Test Item Value Reference Range Interpretation Comments Eosinophils (%) (Auto) (test code = 713-8) 0.0 0.0-6.0 [facility] GreenvilleBasophils (%) (Auto)2018-06-01 03:21:00* Test Item Value Reference Range Interpretation Comments Basophils (%) (Auto) (test code = 706-2) 0.2 0.0-1.0 [facility] GreenvilleIM GRANULOCYTES %2018-06-01 03:21:00* Test Item Value Reference Range Interpretation Comments IM GRANULOCYTES % (test code = IM GRANULOCYTES %) 2.4 0.0- 1.0 H [facility] GreenvilleNeutrophils # (Auto)2018-06-01 03:21:00* Test Item Value Reference Range Interpretation Comments Neutrophils # (Auto) (test code = 751-8) 18.8 2.1-6.9 H [facility] GreenvilleLymphocytes # (Auto)2018-06-01 03:21:00* Test Item Value Reference Range Interpretation Comments Lymphocytes # (Auto) (test code = 69082-5) 0.7 1.0-3.2 L [facility] GreenvilleMonocytes # (Auto)2018-06-01 03:21:00* Test Item Value Reference Range Interpretation Comments Monocytes # (Auto) (test code = 742-7) 0.6 0.2-0.8 [facility] GreenvilleEosinophils # (Auto)2018-06-01 03:21:00* Test Item Value Reference Range Interpretation Comments Eosinophils # (Auto) (test code = 711-2) 0.0 0.0-0.4 [facility] GreenvilleBasophils # (Auto)2018-06-01 03:21:00* Test Item Value Reference Range Interpretation Comments Basophils # (Auto) (test code = 704-7) 0.1 0.0-0.1 [facility] GreenvilleAbsolute Immature Granulocyte (auto 2018-06-01 03:21:00* Test Item Value Reference Range Interpretation Comments Absolute Immature Granulocyte (auto (doug t code = Absolute Immature Granulocyte (auto) 0.49 0-0.1 H [facility] GreenvilleArterial Blood [id number] 00:17:00* Test Item Value Reference Range Interpretation Comments Arterial Blood pH (test code = 2744-1) 7.34 7.31-7.41 [facility] GreenvilleArterial Blood Partial Pressure CO2 2018-06-01 00:17:00* Test Item Value Reference Range Interpretation Comments Arterial Blood Partial Pressure CO2 (test code = 2018-8) 49 41-51 [facility] GreenvilleArterial Blood Partial Pressure O2 2018-06-01 00:17:00* Test Item Value Reference Range Interpretation Comments Arterial Blood Partial Pressure O2 (test code = 2018-8) 77 80-105 L [facility]ial [facility] [id number] 00:17:00* Test Item Value Reference Range Interpretation Comments Arterial Blood HCO3 (test code = 1960-4) [facility] Nuwese4579-40-62 00:17:00* Test Item Value Reference Range Interpretation Comments Arterial Blood Base Excess (test code = 1925-7) 1.0 -2-3 [facility] Oxygen Saturation 2018-06-01 00:17:00* Test Item Value Reference Range Interpretation Comments Arterial Blood Oxygen Saturation (test code = 2708-6) 94.0 95-98 L [facility]villeFiO22019-04-06 00:17:00* Test Item Value Reference Range Interpretation Comments FiO2 (test code = FiO2) 85 PT. ON PRVC 16, 440 +12 85[facility] eT9362-20-46 00:17:00* Test Item Value Reference Range Interpretation Comments Arterial Blood pH (test code = 2744-1) 7.34 7.31-7.41 [facility]ville[facility] Blood Partial Pressure CO2 2018-06-01 00:17:00* Test Item Value Reference Range Interpretation Comments Arterial Blood Partial Pressure CO2 (test code = 2018-8) 49 41-51 [facility]villeAr[facility] Blood Partial Pressure O2 2018-06-01 00:17:00* Test Item Value Reference Range Interpretation Comments Arterial Blood Partial Pressure O2 (test code = 2018-8) 77 80-105 L [facility] Blood ROR15173-83-85 00:17:00* Test Item Value Reference Range Interpretation Comments Arterial Blood HCO3 (test code = 1960-4) 23-28 [facility]ville[facility] Blood Base Dkieya7438-44-88 00:17:00* Test Item Value Reference Range Interpretation Comments Arterial Blood Base Excess (test code = 1925-7) 1.0 -2-3 [facility]ville[facility] Blood Oxygen Saturation 2018-06-01 00:17:00* Test Item Value Reference Range Interpretation Comments Arterial Blood Oxygen Saturation (test code = 2708-6) 94.0 95-98 L [facility]villeFi[facility]22019-04-06 00:17:00* Test Item Value Reference Range Interpretation Comments FiO2 (test code = FiO2) 85 PT. ON PRVC 16, 440 +12 85[facility] GreenvilleCT CHEST W 2018-05-31 15:20:00 [facility] [address] [address] Patient Name: INDRA GALVAN MR #: [id number] : 1980 Age/Sex: 37/M Req #: [id number] Adm Physician: KIET DUMAS MD Ordered by: DAVID HORTON Report #: [id number] Location: ICU Room/Bed: ICU [facility] Procedure: 13 CT/CT CHEST W Exam Date: 05/31/18 Exam Time: 1430 REPORT STATUS: Signed CT chest pulmonary embolism protocol CPT code: 02318 INDICATION: Intubated, ev aluate for pulmonary embolus; suspected infection f/u [id number] TECHNIQUE: Thin collimation axial images obtained through [...] 05/31/181536 COPY TO: DAVID HORTON Hepatitis Be Zjfycdfq2206-74-85 08:40:00* Test Item Value Reference Range Interpretation Comments Hepatitis Be Antibody (test code = 22725-7) Negative Negative Performed at: [facility] [id number] Patient Information Coordinator: Esdras Lemon MD, Phone: [phone] [facility] at GreenvilleHepatitis Be Orgcyjzi3859-36-21 08:40:00* Test Item Value Reference Range Interpretation Comments Hepatitis Be Antibody (test code = 42296-4) Negative Negative Performed at: [facility] [id number] Patient Information Coordinator: Esdras Lemon MD, Phone: [phone] [facility] at GreenvilleHIV-1 RNA, Quantitative copies/eM8913-77-46 08:39:00* Test Item Value Reference Range Interpretation Comments HIV-1 RNA, Quantitative copies/mL (test code = 62163-8) <20 . HIV-1 RNA not detectedThe reportable range for this assay is 20 to 10,000,000cop ies HIV-1 RNA/mL.[facility]villeHIV-1 RNA, Quantitative copies/yG5550-30-84 08:39:00* Test Item Value Reference Range Interpretation Comments HIV-1 RNA, Quantitative copies/mL (test code = 67654-1) <20 . HIV-1 RNA not detectedThe reportable range for this assay is 20 to 10,000,000cop ies HIV-1 RNA/mL.[facility] GreenvilleDifferential Total Cells Yxcqfos9417-30-28 07:07:00* Test Item Value Reference Range Interpretation Comments Differential Total Cells Counted (test code = Differen tial Total Cells Counted) 100 [facility] GreenvilleNeutrophils % (Manual)2018-05-31 07:07:00 * Test Item Value Reference Range Interpretation Comments Neutrophils % (Manual) (test code = 12948-3) 84 40-74 H [facility] GreenvilleLymphocytes % (Manual)2018-05-31 07:07:00 * Test Item Value Reference Range Interpretation Comments Lymphocytes % (Manual) (test code = 737-7) 3 19-48 L [facility] GreenvilleMonocytes % (Manual)2018-05-31 07:07:00* Test Item Value Reference Range Interpretation Comments Monocytes % (Manual) (test code = 744-3) 10 3.4-9.0 H [facility]villeEosinophils % (Manual)2018-05-31 07:07:00 * Test Item Value Reference Range Interpretation Comments Eosinophils % (Manual) (test code = 714-6) 3 0-7 [facility] GreenvillePlatelet Hfxgclfo6160-71-00 07:07:00* Test Item Value Reference Range Interpretation Comments Platelet Estimate (test code = 00179-3) ADEQUATE [facility] GreenvillePlatelet Morphology Ifrwxgm4269-76-14 07:07:00* Test Item Value Reference Range Interpretation Comments Platelet Morphology Comment (test code = 64343-4) NORMAL [facility] GreenvilleHypochromasia2019-04-05 07:07:00* Test Item Value Reference Range Interpretation Comments Hypochromasia (test code = 728-6) SLIGHT [facility] GreenvilleAnisocytosis2019-04-05 07:07:00* Test Item Value Reference Range Interpretation Comments Anisocytosis (test code = 702-1) MODERATE [facility] GreenvilleMacrocytosis2019-04-05 07:07:00* Test Item Value Reference Range Interpretation Comments Macrocytosis (test code = 738-5) MODERATE [facility] GreenvilleRed Cell Morphology Mkkrptv5069-01-06 07:07:00* Test Item Value Reference Range Interpretation Comments Red Cell Morphology Comment (test code = 6742-1) ABNORMAL [facility] GreenvilleDifferential Total Cells Counted 2018-05-31 07:07:00* Test Item Value Reference Range Interpretation Comments Differential Total Cells Counted (test code = Differen tial Total Cells Counted) 100 [facility] GreenvilleNeutrophils % (Manual)2018-05-31 07:07:00 * Test Item Value Reference Range Interpretation Comments Neutrophils % (Manual) (test code = 20639-0) 84 40-74 H [facility] GreenvilleLymphocytes % (Manual)2018-05-31 07:07:00 * Test Item Value Reference Range Interpretation Comments Lymphocytes % (Manual) (test code = 737-7) 3 19-48 L [facility] GreenvilleMonocytes % (Manual)2018-05-31 07:07:00* Test Item Value Reference Range Interpretation Comments Monocytes % (Manual) (test code = 744-3) 10 3.4-9.0 H [facility]villeEosinophils % (Manual)2018-05-31 07:07:00 * Test Item Value Reference Range Interpretation Comments Eosinophils % (Manual) (test code = 714-6) 3 0-7 [facility] GreenvillePlatelet Xqfcivud4432-71-01 07:07:00* Test Item Value Reference Range Interpretation Comments Platelet Estimate (test code = 49024-5) ADEQUATE [facility] GreenvillePlatelet Morphology Bokjzru3191-88-18 07:07:00* Test Item Value Reference Range Interpretation Comments Platelet Morphology Comment (test code = 88923-7) NORMAL [facility] GreenvilleHypochromasia2019-04-05 07:07:00* Test Item Value Reference Range Interpretation Comments Hypochromasia (test code = 728-6) SLIGHT [facility] GreenvilleAnisocytosis2019-04-05 07:07:00* Test Item Value Reference Range Interpretation Comments Anisocytosis (test code = 702-1) MODERATE [facility] GreenvilleMacrocytosis2019-04-05 07:07:00* Test Item Value Reference Range Interpretation Comments Macrocytosis (test code = 738-5) MODERATE [facility] GreenvilleRed Cell Morphology Eqmrwyl5425-48-30 07:07:00* Test Item Value Reference Range Interpretation Comments Red Cell Morphology Comment (test code = 6742-1) ABNORMAL [facility] GreenvilleTotal Gggjlobgn7452-36-01 06:43:00* Test Item Value Reference Range Interpretation Comments Total Bilirubin (test code = 1975-2) 17.5 0.2-1.2 H [facility] GreenvilleAspartate Amino Transf (AST/SGOT) 2018-05-31 06:43:00* Test Item Value Reference Range Interpretation Comments Aspartate Amino Transf (AST/SGOT) (test code = Aspartate Amino Transf (AST/SGOT)) 97 5-34 H [facility] GreenvilleAlanine Aminotransferase (ALT/SGPT) 2018-05-31 06:43:00* Test Item Value Reference Range Interpretation Comments Alanine Aminotransferase (ALT/SGPT) (test code = 1742-6) 28 0-55 [facility] GreenvilleTotal Ywstodp0670-88-46 06:43:00* Test Item Value Reference Range Interpretation Comments Total Protein (test code = 2885-2) 6.1 6.5-8.1 L [facility] GreenvilleAlbumin2019-04-05 06:43:00* Test Item Value Reference Range Interpretation Comments Albumin (test code = 1751-7) 1.7 3.5-5.0 L [facility] GreenvilleGlobulin2019-04-05 06:43:00* Test Item Value Reference Range Interpretation Comments Globulin (test code = 53708-5) 4.4 2.3-3.5 H [facility] GreenvilleAlbumin/Globulin Vniyy8911-44-56 06:43:00 * Test Item Value Reference Range Interpretation Comments Albumin/Globulin Ratio (test code = 1759-0) 0.4 0.8-2.0 L [facility] GreenvilleAlkaline Fhlnebvyurd6961-68-89 06:43:00* Test Item Value Reference Range Interpretation Comments Alkaline Phosphatase (test code = 6768-6) 149 40-150 [facility] GreenvilleCHEST SINGLE (PORTABLE)2018-05-31 05:31:00 [facility] [address] [place] [address] Patient Name: INDRA GALVAN MR #: [id number] : 1980 Age/Sex: 37/M Req #: [id number] Adm Physician: KIET DUMAS MD Ordered by: MANDEEP MARIE MD Report #: [id number] Location: ICU Room/Bed: ICU [facility] Procedure: 0405-000 3 DX/CHEST SINGLE (PORTABLE) [...] OMERO FLORES MD on 05/31/18531 Transcribed By: [facility] ARMAND[facility] on 05/31/18531 COPY TO: MANDEEP MARIE MD Urine Kiywjczvfp5770-53-01 01:57:00* Test Item Value Reference Range Interpretation Comments Urine Osmolality (test code = 2695-5) 353 . 24 hr : 300 - 900 Random: 50 - 1400 After 12hr fluid restriction: >850Performed at: HD - [facility] [address] [id number] Director: Alli Georges MD, Phone: [phone] Regional Medical Center at GreenvilleUrine Osmolality 2018-05-31 01:57:00* Test Item Value Reference Range Interpretation Comments Urine Osmolality (test code = 2695-5) 353 . 24 hr : 300 - 900 Random: 50 - 1400 After 12hr fluid restriction: >850Performed at: HD - [facility] [address] [id number] Director: Alli Georges MD, Phone: [phone] Regional Medical Center at GreenvilleIR UHVIHYY8481-92-67 17:22:[address] [address] Patient Name: INDRA GALVAN MR #: [id number] : 1980 Age/Sex: 37/M Req #: [id number] Adm Physician: KIET DUMAS MD Ordered by: MANDEEP MARIE MD Report #: [id number] Location: ICU Room/Bed: ICU [facility] Procedure: 0404-004 8 DX/IR CONSULT Exam [...] a 0.018 " skinny wire. A 5 Algerian micropuncture sheat h was then placed and through the micropuncture sheath a 0.035 " Amplatz super stiff wire placed centrally. Dilatation with a 7 Algerian Rajesh dilator was a ccomplished. A 7 Algerian Arrow triple-lumen 20 cm long central line [...] TO: MANDEEP MARIE MD NON-TUNNELLED CVC CATH GOGNULY3402-60-65 17:22:[address] [address] Patient Name: INDRA GALVAN MR #: [id number] : 1980 Age/Sex: 37/M Req #: [id number] Adm Physician: KIET DUMAS MD Ordered by: MANDEEP MARIE MD Report #: [id number] Location: ICU Room/Bed: ICU 190 Procedure: 0404-000 3 IR/NON-TUNNELLED CVC CATH PLACMNT [...] 0.018 " skinny wire . A 5 Algerian micropuncture sheath was then placed and through the micropunctur e sheath a 0.035 " Amplatz superstiff wire placed centrally. Dilatation with a 7 Algerian Rajesh dilator was accomplished. A 7 Algerian Arrow triple-lumen 20 cm long central line [...] DO 173 Transcribed By: CATERINA on 05/30/181730 SENIOR TERADATA DEVELOPER Y TO: MANDEEP MARIE MD GUIDANCE FOR VASCULAR PUWMJ4866-10-70 17:22:[address] [address] Patient Name: INDRA GALVAN MR #: [id number] : 1980 Age/Sex: 37/M Req #: [id number] Adm Physician: KIET DUMAS MD Ordered by: MANDEEP MARIE MD Report #: [id number] Location: ICU Room/Bed: ICU [facility] Procedure: 0404-001 8 US/US GUIDANCE FOR [...] 0.018 " skinny wire . A 5 Algerian micropuncture sheath was then placed and through the micropunctur e sheath a 0.035 " Amplatz superstiff wire placed centrally. Dilatation with a 7 Algerian Rajesh dilator was accomplished. A 7 Algerian Arrow triple-lumen 20 cm long central line was then placed over the Amplatz wire. Each lumen was flushed with saline. Catheter secured to the skin with 3-0 Ethilon. Post procedure chest x-ray was ordered. Impression: Successful placement of a triple-lumen central line. Signed by: Dr. Kandi Anand DO on 05/31/19 5:31 PM Dictated By: KANDI ANAND DO 173 Transcribed By: CATERINA on 05/30/181730 SENIOR TERADATA DEVELOPER Y TO: MANDEEP MARIE MD Blood Lurthcr6772-22-75 17:10:00* Test Item Value Reference Range Interpretation Comments Blood Culture (test code = 82396640) NO GROWTH AFTER 72 HOURS [facility] XRAY LINE EQRRGAUUX3169-04-99 15:38:[address] [place], [place], [place] [address] Patient Name: INDRA GALVAN MR #: [id number] : 1980 Age/Sex: 37/M Req #: [id number] Adm Physician: KIET DUMAS MD Ordered by: KANDI ANAND DO Report #: [id number] Location: ICU Room/Bed: ICU [facility] Procedure: [id number] DX/CHEST XRAY LINE PLACEMENT Exam Date: Exam [...] 3:41 PM Dictated By: KANDI ANAND DO 154 Transcribed By: CATERINA on 05/30/18 0039 COPY TO: KANDI ANAND DO CHEST SINGLE (PORTABLE)2018-05-30 14:49:00 [address] [address] Patient Name: INDRA GALVAN MR #: [id number] : [birth year] Age/Sex: 37/M Req #: [id number] Adm Physician: KIET DUMAS MD Ordered by: MARITZA SANTANA MD Report #: [id number] Location: ICU Room/Bed: ICU [facility] Procedure: 0328-8131 DX/CHEST SINGLE (PORTABLE) Exam Date: 05/30/18 Exam [...] COPY TO: MARITZA SANTANA MD Urine Legionella Hilcnlx0408-37-20 12:08:00* Test Item Value Reference Range Interpretation Comments Urine Legionella Antigen (test code = 23007-2) Negative Negativ e Presumptive negative for L. pneumophila serogroup 1 antigenin urine, suggesting no recent or current infection.Legionnaires' disease cannot be ruled out since o therserogroups and species may also cause disease.Performed at: [facility] [address] [place] [id number] Director: Esdras Lemon MD, Phone: [phone] Regional Medical Center at GreenvilleUrine Legionella Xsbtmju8257-33-14 12:08:00* Test Item Value Reference Range Interpretation Comments Urine Legionella Antigen (test code = 87524-8) Negative Negativ e Presumptive negative for L. pneumophila serogroup 1 antigenin urine, suggesting no recent or current infection.Legionnaires' disease cannot be ruled out since o therserogroups and species may also cause disease.Performed at: [facility] [address] [id number] Director: Esdras Lemon MD, Phone: [phone] [facility] Medical Center at GreenvilleHepatitis C Yqwkhvai4790-76-59 11:20:00* Test Item Value Reference Range Interpretation Comments Hepatitis C Antibody (test code = 26154-1) 0.1 0.0-0.9 Negative: < 0.8 Indeterminate: 0.8 - 0.9 Positive: > 0.9 The CDC recommends that a positive HCV antibody result be followed up with a HCV Nucleic Acid Amplification test (891409).Performed at: [facility] [address] [place] [id number] Director: Alli Georges MD, Phone: [phone] Regional Medical Center at GreenvilleHepatitis C Vhrfcinb4811-98-87 11:20:00* Test Item Value Reference Range Interpretation Comments Hepatitis C Antibody (test code = 95806-8) 0.1 0.0-0.9 Negative: < 0.8 Indeterminate: 0.8 - 0.9 Positive: > 0.9 The CDC recommends that a positive HCV antibody result be followed up with a HCV Nucleic Acid Amplification test (970180).Performed at: [facility] [address] [place] [id number] Director: Alli Georges MD, Phone: [phone] Regional Medical Center at GreenvilleUrine UGZ6150-01-48 11:03:00* Test Item Value Reference Range Interpretation Comments Urine WBC (test code = 5821-4) 11-20 0-5 H [facility] GreenvilleUrine MAM5491-46-86 11:03:00* Test Item Value Reference Range Interpretation Comments Urine RBC (test code = 72988-8) NONE 0-5 [facility] GreenvilleUrine Lmvcrhyx9816-37-52 11:03:00* Test Item Value Reference Range Interpretation Comments Urine Bacteria (test code = 31217-4) FEW NONE [facility] GreenvilleUrine Epithelial Ljaps5592-80-46 11:03:00 * Test Item Value Reference Range Interpretation Comments Urine Epithelial Cells (test code = 67369-5) RARE NONE [facility] GreenvilleUrine Transitional Epithelial Cells 2018-05-30 11:03:00* Test Item Value Reference Range Interpretation Comments Urine Transitional Epithelial Cells (test code = 8249-5) FEW NONE [facility] GreenvilleUrine Transitional Epithelial Cells 2018-05-30 11:03:00* Test Item Value Reference Range Interpretation Comments Urine Transitional Epithelial Cells (test code = 8249-5) FEW NONE [facility] GreenvilleUrine Cvxlg7262-02-54 10:31:00* Test Item Value Reference Range Interpretation Comments Urine Color (test code = 5778-6) RED YELLOW H [facility] GreenvilleUrine Ikszspe7296-82-93 10:31:00* Test Item Value Reference Range Interpretation Comments Urine Clarity (test code = 03805-1) SL CLOUDY CLEAR H [facility] GreenvilleUrine Specific Nfkgxvb2854-87-71 10:31:00 * Test Item Value Reference Range Interpretation Comments Urine Specific Raymond (test code = 5811-5) 1.020 1.010-1.02 5 [facility] GreenvilleUrine lQ8514-86-57 10:31:00* Test Item Value Reference Range Interpretation Comments Urine pH (test code = 80558-0) 6 5-7 [facility] GreenvilleUrine Leukocyte Wzgwxlnt2396-86-22 10:31:00* Test Item Value Reference Range Interpretation Comments Urine Leukocyte Esterase (test code = 5799-2) NEGATIVE NEGATIVE [facility] GreenvilleUrine Fvtucwc2727-88-31 10:31:00* Test Item Value Reference Range Interpretation Comments Urine Nitrite (test code = 35752-3) POSITIVE NEGATIVE H [facility] GreenvilleUrine Ojnpbis7139-55-52 10:31:00* Test Item Value Reference Range Interpretation Comments Urine Protein (test code = 5804-0) TRACE NEGATIVE H [facility] GreenvilleUrine Glucose (UA)2018-05-30 10:31:00* Test Item Value Reference Range Interpretation Comments Urine Glucose (UA) (test code = 2349-9) NEGATIVE NEGATIVE [facility] GreenvilleUrine Nnkafmq1005-01-91 10:31:00* Test Item Value Reference Range Interpretation Comments Urine Ketones (test code = 04138-8) NEGATIVE NEGATIVE [facility] GreenvilleUrine Zllgpnhanjza7319-49-40 10:31:00* Test Item Value Reference Range Interpretation Comments Urine Urobilinogen (test code = 07750-0) 1 0.2-1 [facility] GreenvilleUrine Sumrdomzn4893-58-74 10:31:00* Test Item Value Reference Range Interpretation Comments Urine Bilirubin (test code = 1978-6) 3+ NEGATIVE H Confirmatory test currently unavailable. False positive results may occur.[facility] GreenvilleUrine Pzczv5059-74-93 10:31:00* Test Item Value Reference Range Interpretation Comments Urine Blood (test code = 57392-3) NEGATIVE NEGATIVE [facility] GreenvilleFolate2019-04-03 08:07:00* Test Item Value Reference Range Interpretation Comments Folate (test code = 2284-8) 30.1 7.0-15.4 H [facility] GreenvilleFolate2019-04-03 08:07:00* Test Item Value Reference Range Interpretation Comments Folate (test code = 2284-8) 30.1 7.0-15.4 H [facility] GreenvilleCHEST SINGLE (PORTABLE)2018-05-29 07:58:00 [facility] [address] [address] Patient Name: INDRA GALVAN MR #: [id number] : 1980 Age/Sex: 37/M Req #: [id number] Adm Physician: KIET DUMAS MD Ordered by: KIRT SCHULTZ MD Report #: [id number] Location: MED/SURG3 Room/Bed: 296-1 Procedure: 1916-0085 DX /CHEST SINGLE (PORTABLE) Exam Date: 05/29/18 [...] Comments Vitamin B12 Level (test code = 39562-5) 1700 213-816 H [facility] GreenvilleVitamin B12 Mchpk3444-26-66 07:19:00* Test Item Value Reference Range Interpretation Comments Vitamin B12 Level (test code = 80920-4) 1700 213-[address] [facility]2019-04-03 07:07:00* Test Item Value Reference Range Interpretation Comments Iron Level (test code = 2498-4) 61 65-175 L [facility] GreenvilleToriverton [facility] Iron Binding Herimtsi5523-82-49 07:07:00* Test Item Value Reference Range Interpretation Comments Total Iron Binding Capacity (test code = 2500-7) 116 261-4 78 L [facility] GreenvillePersheltering arms [facility] Iron Oofajqjstz5484-41-62 07:07:00* Test Item Value Reference Range Interpretation Comments Percent Iron Saturation (test code = 2502-3) 53 15-50 H [facility] GreenvilleTransferrin2019-04-03 07:07:00* Test Item Value Reference Range Interpretation Comments Transferrin (test code = 3034-6) 83 174-364 L [facility]2019-04-03 07:07:00* Test Item Value Reference Range Interpretation Comments Iron Level (test code = 2498-4) 61 65-175 L [facility] Iron Binding Zrmtjdzi3906-66-44 07:07:00* Test Item Value Reference Range Interpretation Comments Total Iron Binding Capacity (test code = 2500-7) 116 261-4 78 L [facility] Iron Ayvvladyno6296-89-62 07:07:00* Test Item Value Reference Range Interpretation Comments Percent Iron Saturation (test code = 2502-3) 53 15-50 H [facility] GreenvilleTransferrin2019-04-03 07:07:00* Test Item Value Reference Range Interpretation Comments Transferrin (test code = 3034-6) 83 174-364 L [facility] GreenvilleMyelocytes %2018-05-29 07:06:00* Test Item Value Reference Range Interpretation Comments Myelocytes % (test code = 749-2) 1 0-0 H [facility] GreenvilleMyelocytes %2018-05-29 07:06:00* Test Item Value Reference Range Interpretation Comments Myelocytes % (test code = 749-2) 1 0-0 H [facility] at GreenvillePercent Reticulocyte Qvban2450-42-33 06:26:00* Test Item Value Reference Range Interpretation Comments Percent Reticulocyte Count (test code = 09192-1) 6.4 0.8-2 .2 H [facility] GreenvillePercent Reticulocyte Jfbwe4392-35-72 06:26:00* Test Item Value Reference Range Interpretation Comments Percent Reticulocyte Count (test code = 54504-8) 6.4 0.8-2 .2 H [facility] Be Aqohhci8842-28-36 05:14:00* Test Item Value Reference Range Interpretation Comments Hepatitis Be Antigen (test code = 68023-2) Negative Negative [facility] B Core Total Mbqhslbh6324-61-28 05:14:00* Test Item Value Reference Range Interpretation Comments Hepatitis B Core Total Antibody (test code = 39699-2) Negative Negative Performed at: [facility] [address] [id number] Director: Alli Georges MD, Phone: [phone] Scott & White [facility] B Surface Vpspnfh3827-38-72 05:14:00* Test Item Value Reference Range Interpretation Comments Hepatitis B Surface Antigen (test code = 5196-1) Negative Negat mumtaz [facility] Be Mdmhjyv8198-05-21 05:14:00* Test Item Value Reference Range Interpretation Comments Hepatitis Be Antigen (test code = 98797-3) Negative Negative [facility] B Core Total [id number] 05:14:00* Test Item Value Reference Range Interpretation Comments Hepatitis B Core Total Antibody (test code = 08731-1) Negative Negative Performed at: [facility] [address] [id number] Director: Alli Georges MD, Phone: [phone] B Surface [id number] 05:14:00* Test Item Value Reference Range Interpretation Comments Hepatitis B Surface Antigen (test code = 5196-1) Negative Negat mumtaz [facility] Ffsy9328-08-54 00:09:00* Test Item Value Reference Range Interpretation Comments Prothrombin Time (test code = 5902-2) 15.5 11.9-14.5 H [facility]ville[facility] Time International Ratio 2018-05-29 00:09:00* Test Item Value Reference Range Interpretation Comments Prothromb Time International Ratio (test code = 6301-6) 1.17 Oral Anticoagulant Therapy INR Values:1. Low Intensity Therapy 1.5 - 2.02 . Moderate Intensity Therapy 2.0 - 3.03. High Intensity Therapy(1) 2.5 - 3. 54. High Intensity Therapy(2) 3.0 - 4.05. Panic Value INR > 5.0 [facility] (1&2) Hrtlrpme9790-41-03 17:13:00* Test Item Value Reference Range Interpretation Comments HIV (1&2) Antibody (test code = 84004-0) NON-REACTIVE NONREACTIVE [facility] P24 Guvolpz1765-88-29 17:13:00* Test Item Value Reference Range Interpretation Comments HIV P24 Antigen (test code = HIV P24 Antigen) NON-REACTIVE NONREACT [facility] Awfgkacz8893-96-30 17:13:00* Test Item Value Reference Range Interpretation Comments HIV (1&2) Antibody (test code = 39679-3) NON-REACTIVE NONREACTIVE [facility] P24 Krlysid7082-87-35 17:13:00* Test Item Value Reference Range Interpretation Comments HIV P24 Antigen (test code = HIV P24 Antigen) NON-REACTIVE NONREACT MUMTAZ [facility] CHEST [id number] 12:56:00 [facility] [address] [place] [address] Patient Name: INDRA GALVAN MR #: [id number] : 1980 Age/Sex: 37/M Req #: [id number] Adm Physician: KIET DUMAS MD Ordered by: MANDEEP MARIE MD Report #: [id number] Location: MED/SURG3 Room/Bed: [facility] Procedure: 0402-[address]/CT CHEST WO Exam [...] 1308 COPY TO: MANDEEP MARIE MD Amylase Kspsv0463-60-03 09:09:00* Test Item Value Reference Range Interpretation Comments Amylase Level (test code = 1798-8) 24 25-125 L [facility]ville[facility]2019-04-02 09:09:00* Test Item Value Reference Range Interpretation Comments Lipase (test code = 3040-3) 28 8-78 [facility]ville[facility] Tqpmo9285-04-37 09:09:00* Test Item Value Reference Range Interpretation Comments Amylase Level (test code = 1798-8) 24 25-125 L [facility]ville[facility]2019-04-02 09:09:00* Test Item Value Reference Range Interpretation Comments Lipase (test code = 3040-3) 28 [facility]ville[facility] 2 [id number] 06:24:00 [facility] [address] [address] Patient Name: INDRA GALVAN MR #: [id number] : 1980 Age/Sex: 37/M Req #: [id number] Adm Physician: KIET DUMAS MD Ordered by: ANAYA BUSTAMANTE MD Report #: [id number] Location: MED/SURG3 Room/Bed: [facility] Procedure: 0402-0 010 DX/CHEST 2 VIEWS Exam [...] or pneumonia. Sign ed by: Dr. Omero Florse M.D. on 05/28/2018 6:26 AM Dictated By: OMERO FLORES MD 06 Tra nscribed By: CATERINA on 05/28/18625 COPY TO: ANAYA BUSTAMANTE MD CT ABDOMEN/PELVIS [id number] 20:09:00 [address] [place] [address] Patient Name: INDRA GALVAN MR #: [id number] : 1980 Age/Sex: 37/M Req #: [id number] Adm Physician: KIET DUMAS MD Ordered by: ANAYA BUSTAMANTE MD Report #: [id number] Location: [facility] Room/Bed: [place] [address] Procedure: 0401-[address]/CT ABDOMEN/PELVIS W Exam [...] on 05/27/182039 COPY TO: ANAYA BUSTAMANTE MD [id number] 19:50:00 [place] [address] Patient Name: INDRA GALVAN MR #: [id number] : 1980 Age/Sex: 37/M Req #: [id number] [facility] Physician: KIET DUMAS MD Ordered by: ANAYA BUSTAMANTE MD Report #: [id number] Location: [facility] Room/Bed: [place] [address] Procedure: 0401-0 013 US/US GALLBLADDER Exam Date: [...] TO: ANAYA BUSTAMANTE MD B- Type Natriuretic Jpmgtga7007-74-74 17:56:00* Test Item Value Reference Range Interpretation Comments B-Type Natriuretic Peptide (test code = 15090-9) 221.6 0-100 H [facility]ville[facility]flu[facility] Virus Types A,B Antigen 2018-05-27 17:30:00* Test Item Value Reference Range Interpretation Comments Influenza Virus Types A,B Antigen (test code = 41522-3) NEGATIVE NEGATIVE [facility] Virus Types A,B Antigen 2018-05-27 17:30:00* Test Item Value Reference Range Interpretation Comments Influenza Virus Types A,B Antigen (test code = 33206-8) NEGATIVE NEGATIVE [facility]villeTroponin P1701-20-43 17:28:00* Test Item Value Reference Range Interpretation Comments Troponin I (test code = FVP8542) 0.010 0-0.300 [facility]villeLactic Acid Fckug9288-13-00 17:20:00* Test Item Value Reference Range Interpretation Comments Lactic Acid Level (test code = Lactic Acid Level) 26.5 4.5- 19.8 HH Results repeated and called to Alina at 1720 on 05/27/18 by Kalin Almanza. Read ba ck and verified.[facility] [id number] 15:47:00 [facility] [address] [address] Patient Name: INDRA GALVAN MR #: [id number] : 1980 Age/Sex: 37/M Req #: [id number] Adm Physician: Ordered by: ANAYA BUSTAMANTE MD Report #: [id number] Location: ER Room/Bed: Procedure: [id number] DX/CHEST 2 VIEWS Exam Date: Exam Time: [...] 3:50 PM Dictated By: SONIA Jeffery MD 8255 Transcribed By: CATERINA on 05/27/18 4640 COPY TO: ANAYA BUSTAMANTE MD
--- NOTE | 2019-12-08 02:20 | NUR ---
Patient arrived to unit from ER via wheelchair in stable condition, no s/s of distress at this time. Patient oriented to room, hospital policies, and plan of care. Bed locked and in lowest position, side rails upx2, call light placed within reach. Patient instructed to call for assistance if needed, verbalized understanding. All safety measures in place.
[2019-12-08] MEDS ORDERED: INFLUENZA VIRUS VAC SPLIT INJ 0.5 ML SYR IM SCH (02:21)
[2019-12-08] MEDS ORDERED: MIDODRINE HCL5 MG PO (02:32)
[2019-12-08] MEDS ORDERED: FUROSEMIDE40 MG PO (02:32)
[2019-12-08] MEDS ORDERED: SODIUM BICARBO650 MG PO (02:35)
--- NOTE | 2019-12-08 02:45 | NUR ---
Called [facility] to let them know that patient will need hemodialysis today and that 1 unit of blood is to be transfused with dialysis. Spoke with Rosa.
--- NOTE | 2019-12-08 05:04 | NUR ---
Patient c/o abdominal and back pain, and nausea. Paged Dr. Kay for orders. Awaiting return call at this time.
--- NOTE | 2019-12-08 05:21 | NUR ---
Spoke to Dr. Kay and received orders for morphine 4 mg IV Q4H PRN, and Phenergan 12.5 mg IV Q8H PRN.
[2019-12-08] MEDS ORDERED: PROMETHAZINE 12.5MG/ NACL 0.9% 12.5 MG/50 ML BAG IV PRN (05:30)
[2019-12-08] MEDS ORDERED: MORPHINE SULFATE INJ 4 MG/ML INJ 1ML IV PRN (05:30)
--- NOTE | 2019-12-08 06:42 | NUR ---
Routine consult called to Dr. Huffman's answering service.
--- NOTE | 2019-12-08 07:28 | NUR ---
PATIENT IN BED RESTING WITH EYES CLOSED, NO RESPIRATORY DISTRESS OBSERVED. ABDOMEN LARGE AND ROUND, SKIN IS JAUNDICE. BED IN LOWER POSITION, CALL LIGHT AT REACH.
[2019-12-08] MEDS ORDERED: TRAZODONE HCL 50 MG TAB PO PRN (08:15)
--- NOTE | 2019-12-08 08:18 | NUR ---
H&P cc: fatigue HPI: 39yoM, recently had multiple transfusions for anemia of chronic disease, now with recurrent fatigue, fell with head trauma, here having coffee ground emesis. Found to have worsening anemia. Denies melena/hematochezia. Admitted for tranfusions. Plans for liver transplant soon. PMH: alcoholic cirrhosis, GIB, ESRD on HD, HTN, Alcoholism, alcoholic pancreatitis, splenomegaly, thromboytopenia, jaundice, portal HTN, Severe anemia s/p blood transfusions, Hyperbilirubinemia- due to cirrhosis, GIB, Hypovolemic Shock, Clostridium difficle, Ileus, Portal gastropathy, Esophageal varices, Ascites s/p paracentesis , hypokalemia SHx: HD access, Allergies; see emr FH/SH: alcoholism, meds; see MAR ROS; no f/c/s/ROBERSON/cp/sob/skin rash/dizziness/vision changes/ROBERSON/confusion/leg pain/focal limb weakness v/s revd PE tired appearing ICTERIC ns1s2 mod bs soft; no e/t skin Yellow a&ox3; murdock flat affect labs/meds A/P: Mod-Severe anemia of chornic disease - blood transfusions; PPI BID GIB- IV PPI; GI consult Thrombocytopenia- use scd; steroids Hyponatremia- rehydrate Hyperbilirubinemia- due to cirrhosis; H/O Splenomegaly Alcoholic cirrhosis- f/u [place]- consult nephrology Portal HTN- cont propranolol Orthostatic hypotension- cont midodrine Chr leukocytosis- on steroids; check UA if produces urine Prop; scd; ppi dispo: IV ppi; GI consult; JENNYFER PARKER MD, PHD.
[2019-12-08] MEDS: LACTULOSE SYRUP 20 GM/30 ML UDC PO SCH ×3 (09:00→21:00)
[2019-12-08] MEDS: PROPRANOLOL HCL 10 MG TAB PO SCH ×2 (09:00→17:00)
[2019-12-08] MEDS: CEFTRIAXONE SOD 1 GM/NS 50 ML 50 ML IV SCH (09:31)
[2019-12-08] MEDS: MIDODRINE HCL 5 MG TABLET PO SCH ×4 (09:31→23:21)
[2019-12-08] MEDS ORDERED: SODIUM CHLORIDE 0.9% 250ML 250 ML ONE (09:31)
[2019-12-08] MEDS: RIFAXIMIN 550 MG TABLET PO SCH ×2 (09:31→17:00)
[2019-12-08] MEDS: FUROSEMIDE 40 MG TAB PO SCH ×2 (09:31→17:00)
[2019-12-08] MEDS: FOLIC ACID 1 MG TAB PO SCH (09:31)
[2019-12-08] MEDS: SODIUM BICARBONATE 650 MG TAB PO SCH ×2 (09:31→21:45)
[2019-12-08] MEDS: PANTOPRAZOLE 40 MG 10ML VIAL IV SCH ×2 (09:31→17:00)
--- NOTE | 2019-12-08 11:22 | NUR ---
SPOKE TO DR ROBERTSON REGARDING NEW CONSULT, NEW ORDER RECEIVED.
[2019-12-08] MEDS: SUCRALFATE 1 GM TAB PO SCH ×3 (12:00→21:26)
--- NOTE | 2019-12-08 12:41 | NUR ---
SPOKE WITH MD REGARDING LOW BLOOD PRESSURE, NEW ORDER RECEIVED.
[2019-12-08] MEDS ORDERED: ALBUMIN 25% 12.5GM 0.25 GM/ML BTL IV ONE (12:45)
[2019-12-08] MEDS ORDERED: ALBUMIN 25% 25GM 100ML 100 ML IV ONE (13:00)
[2019-12-08] MEDS ORDERED: SODIUM CHLORIDE 0.9% 1000ML 2,000 ML ONE (14:45)
--- NOTE | 2019-12-08 16:24 | NUR ---
BED SIDE HEMODIALYSIS STARTED, PATIENT IN BD RESTING WITH CALL LIGHT AT REACH.
[2019-12-08] MEDS ORDERED: PANTOPRAZOLE 40 MG 10ML VIAL IV SCH (17:00)
[2019-12-08] MEDS ORDERED: TRAMADOL HCL 50 MG TAB PO PRN (18:15)
[2019-12-08] MEDS ORDERED: SODIUM CHLORIDE 0.9% 1000ML 2,000 ML IV PRN (20:15)
[2019-12-08] MEDS ORDERED: HEPARIN SOD (PORCINE) 1000 UNIT/ML SDV IV PRN (20:15)
[2019-12-09] MEDS ORDERED: ALBUMIN 25% 12.5GM 50ML 100 ML IV ONE ×3 (01:00→23:44)
[2019-12-09] MEDS: ALBUMIN 25% 25GM 100ML 0.25 GM/ML BTL IV SCH ×4 (01:10→18:06)
--- NOTE | 2019-12-09 07:00 | NUR ---
BEDSIDE SHIFT REPORT RECEIVED FROM RUBBER TIRE CURER RN. PT DENIES NEEDS.
[2019-12-09 07:01] LABS: ALANINE AMINOTRANSFERASE 31 IU/L (0-55); ALBUMIN 1.9 g/dL (3.5-5.0); ALBUMIN/GLOBULIN RATIO 1.2 (0.8-2.0); ALKALINE PHOSPHATASE 87 IU/L (40-150); ANION GAP 13.3 mmol/L (8-16); BLOOD UREA NITROGEN 26 mg/dL (7-26); BUN/CREATININE RATIO 8 (6-25); CALCIUM 7.6 mg/dL (8.4-10.2); CARBON DIOXIDE 25 mmol/L (22-29); CHLORIDE 100 mmol/L (98-107); CREATININE, SERUM 3.26 mg/dL (0.72-1.25); EST GLOMERULAR FILTRATION RATE 21 ML/MIN (60-); GLUCOSE 94 mg/dL (74-118); POTASSIUM 3.3 mmol/L (3.5-5.1); SODIUM 135 mmol/L (136-145)
[2019-12-09 07:02] LABS: BASOPHILS # (AUTO) 0.1 (0.0-0.1); BASOPHILS % 0.7 % (0.0-1.0); EOSINOPHILS # (AUTO) 0.4 (0.0-0.4); EOSINOPHILS % 1.8 % (0.0-6.0); HEMOGLOBIN 7.1 g/dL (14.0-18.0); LYMPHOCYTES # (AUTO) 1.4 (1.0-3.2); LYMPHOCYTES % 6.3 % (18.0-39.1); MEAN CORPUSCULAR HEMOGLOBIN 33.5 pg (28-32); MEAN CORPUSCULAR VOLUME 92.9 fL (81-99); MONOCYTES % 9.4 % (4.4-11.3); NEUTROPHILS % 79.2 % (38.7-80.0); PLATELET COUNT 55 x10e3/uL (140-360); RED BLOOD COUNT 2.12 x10e6/uL (4.3-5.7); RED CELL DISTRIBUTION WIDTH 21.3 % (11.7-14.4)
[2019-12-09 07:12] LABS: HEMATOCRIT 19.7 % (38.2-49.6)
[2019-12-09] MEDS ORDERED: PANTOPRAZOLE SOD 40 MG TABEC PO SCH (07:30)
[2019-12-09 08:17] VITALS: BP 84/49
[2019-12-09] MEDS: SUCRALFATE 1 GM TAB PO SCH ×4 (08:32→21:56)
[2019-12-09] MEDS: PROPRANOLOL HCL 10 MG TAB PO SCH ×2 (08:33→16:21)
[2019-12-09] MEDS: SODIUM BICARBONATE 650 MG TAB PO SCH ×2 (08:33→21:56)
[2019-12-09] MEDS: LACTULOSE SYRUP 20 GM/30 ML UDC PO SCH ×3 (08:33→21:00)
[2019-12-09] MEDS: FOLIC ACID 1 MG TAB PO SCH (08:33)
[2019-12-09] MEDS: FUROSEMIDE 40 MG TAB PO SCH ×2 (08:33→16:21)
[2019-12-09] MEDS: PANTOPRAZOLE 40 MG 10ML VIAL IV SCH ×2 (08:33→16:21)
[2019-12-09] MEDS: RIFAXIMIN 550 MG TABLET PO SCH ×2 (08:34→16:21)
[2019-12-09] MEDS: CEFTRIAXONE SOD 1 GM/NS 50 ML 50 ML IV SCH (08:34)
[2019-12-09] MEDS: MIDODRINE HCL 5 MG TABLET PO SCH ×3 (08:39→20:25)
[2019-12-09 08:44] LABS: INR 2.29; PROTHROMBIN TIME 26.3 seconds (11.9-14.5)
[2019-12-09] MEDS ORDERED: ALBUMIN 25% 12.5GM 50ML 200 ML IV ONE (09:13)
[2019-12-09 09:21] VITALS: BP 88/42
[2019-12-09] MEDS ORDERED: ALBUMIN 25% 12.5GM 50ML 50 ML IV ONE (09:54)
--- NOTE | 2019-12-09 10:13 | Diagnostic Imaging Report ---
HISTORY : Symptomatic ascites. Technique/findings: Informed written consent was obtained. Discussion of risks, benefits, and alternatives were made with the patient. The patient expressed understanding and agreed to proceed. A universal timeout was performed prior to starting the procedure. Initial ultrasound images demonstrate large volume of ascites. A pocket of fluid was identified in the left lower quadrant of the abdomen. This area was marked. The area was prepped and draped in the usual sterile fashion. 1% lidocaine was applied to the skin and deep soft tissues. Color ultrasound was used to assess for any vessels within the vicinity of the planned trajectory of the one-step, a image was saved. A 5 Turkish one-step catheter was inserted and removed from the peritoneal space and approximately 6 liters of kamila fluid was aspirated from the abdomen. Specimens were collected for the lab. There were no immediate complications. Impression: Successful ultrasound guided paracentesis with aspiration of 6 liters of fluid. Procedure was terminated after removal of 6L of ascites as patient was persistently hypotensive with blood pressures ranging in the 70s/40s throughout the entire procedure. Albumin was given prophylactically. Patient can return in one to 2 days for additional fluid removal if necessary. Signed by: Syed Almanza MD on 12/09/2019 10:09 AM
--- NOTE | 2019-12-09 11:41 | NUR ---
ORDER TO CONSULT HOSPICE REC'D FROM DR PARKER CM ASKED DR PARKER TO CALL PT'S BROTHER WADE AT [phone] HE WAS REQUESTING TO SPEAK WITH DR KEITH PARKER CALLED BROTHER WADE; NO ANSWER; LEFT VOICE MAIL
--- NOTE | 2019-12-09 11:55 | NUR ---
PT RECEIVED 75GM ALBUMIN IN IR POST PARACENTISIS
[2019-12-09 12:00] VITALS: BP 81/42
--- NOTE | 2019-12-09 12:59 | NUR ---
IM- progress note O/N see below ROS; no f/c/s/ROBERSON/cp/sob/skin rash/dizziness/vision changes/ROBERSON/confusion/leg pain/focal limb weakness v/s revd PE tired appearing ICTERIC ns1s2 mod bs soft; no e/t skin Yellow a&ox3; murdock flat affect labs/meds A/P: Mod-Severe anemia of chornic disease - blood transfusions; PPI BID GIB- IV PPI; GI consult Thrombocytopenia- use scd; steroids Hyponatremia- rehydrate Hyperbilirubinemia- due to cirrhosis; H/O Splenomegaly Alcoholic cirrhosis- f/u [place] transplant specialist [place]- consult nephrology Portal HTN- cont propranolol Orthostatic hypotension- cont midodrine Chr leukocytosis- on steroids; check UA if produces urine Prop; scd; ppi dispo: IV ppi; GI consult; 12-09-19 Hospice candidate after paracentesis; I have tried to reach brother; left message; will try again; JENNYFER PARKER MD, PHD.
--- NOTE | 2019-12-09 13:16 | NUR ---
SPOKE WITH BROTH WADE THIS MORNING AND HE IS CONCERNED ABOUT PLAN. HE WANTS TO SPEAK WITH DOCTOR AND PT PRIOR TO MAKING ANY DECISIONS. ASKING FOR APPROVAL. WILL CALL WADE BACK WHEN ABLE TO GET IT. [phone]
--- NOTE | 2019-12-09 13:22 | NUR ---
OBTAINED PERMISSION FROM ALEXIS Pereira, CALLED GALVA NICOLE AND CALLED BROTHER WADE BACK HE STATES HE WILL BE HERE AT 230.
--- NOTE | 2019-12-09 15:11 | NUR ---
BROTHER HERE TO SEE PT, LET ME KNOW HE IS ALREADY ON TRANSPLANT TEAM AND WANTS TO BE TRANSFERRED DOWNTOWN.
--- NOTE | 2019-12-09 15:46 | NUR ---
CALL TO THE PT'S BROTHER, WADE WYMAN @ [phone]. NO ANSWER; LEFT VM. CALL TO THE PT'S ROOM ALSO. ORDER WAS RECEIVED TO INITIATE TXF DOWNTOWN FOR HIGHER LOC. WILL HAND OFF TO ABRASIVE GRADER.
--- NOTE | 2019-12-09 16:01 | NUR ---
SPOKE WITH PT'S BROTHER WADE WHO STATES PT'S LIVER DOCTOR IS DR JIMENA CLEMENT AT [facility]
[2019-12-09 16:24] VITALS: BP 79/38
--- NOTE | 2019-12-09 19:15 | NUR ---
BEDSIDE SHIFT REPORT RECEIVED FROM DAY SHIFT. PT IS ALERT AND ORIENTED X3. RESPIRATIONS EVEN AND UNLABORED. TELE ON. ABDOMINAL DRESSING DRY AND INTACT. ABDOMEN SOFT. RT HD CATH INTACT. DIALYSIS DUE IN AM. FAMILY AT BEDSIDE. B/P RUNNING LOW . WILL RECHECK B/P AGAIN AFTER MIDODRINE GIVEN.
[2019-12-09 20:00] VITALS: BP 82/36
--- NOTE | 2019-12-09 21:13 | NUR ---
REPORT CALLED TO [facility]. TALKED WITH DR PARKER ABOUT PT B/P . INSTRUCTED TO SEND TO ICU FOR PRESSORS. DR FRAGOSO CONSULTED. FAMILY AND PT INFORMED. ALL BELONGINGS TO ICU. FAMILY TO WAITING ROOM.
[2019-12-09 23:00] VITALS: BP 77/38
[2019-12-09] MEDS ORDERED: ALBUMIN 25% 25GM 100ML 0.25 GM/ML BTL IV ONE (23:45)
[2019-12-10] VITALS (14 sets, daily range): BP systolic 68–93; BP diastolic 36–58
[2019-12-10] MEDS: ALBUMIN 25% 25GM 100ML 0.25 GM/ML BTL IV SCH (00:41)
[2019-12-10] MEDS: VANCOMYCIN 250MG/5ML ORAL SOLN PO SCH ×5 (00:41→23:39)
[2019-12-10 02:13] LABS: BODY FLUID TYPE PERITONEAL
[2019-12-10 02:14] LABS: BODY FLUID APPEARANCE SL.CLOUDY; BODY FLUID COLOR YELLOW
[2019-12-10 02:15] LABS: RBC,BODY FLUID 246 cells/uL; WBC,BODY FLUID 1663 cells/uL
[2019-12-10 02:22] LABS: LYMPHOCYTES,BODY FLUID 11 %; MONO/MACROPHG,BODY FLUID 1 %; NEUTROPHILS,BODY FLUID 88 %
[2019-12-10] MEDS: NOREPINEPHRINE INJ 4MG/4ML 8 MG in DEXTROSE 5% 250ML 250 ML IV PRN ×2 (02:30→21:38)
[2019-12-10] MEDS ORDERED: NOREPINEPHRINE 8 MG/D5W 250 ML 250 ML ONE (02:34)
[2019-12-10 04:44] LABS: BASOPHILS # (AUTO) 0.1 (0.0-0.1); BASOPHILS % 0.6 % (0.0-1.0); EOSINOPHILS # (AUTO) 1.1 (0.0-0.4); EOSINOPHILS % 4.7 % (0.0-6.0); LYMPHOCYTES # (AUTO) 2.5 (1.0-3.2); LYMPHOCYTES % 10.8 % (18.0-39.1); MEAN CORPUSCULAR HEMOGLOBIN 33.3 pg (28-32); MEAN CORPUSCULAR HGB CONC 35.4 g/dL (31-35); MEAN CORPUSCULAR VOLUME 94.2 fL (81-99); MONOCYTES # (AUTO) 2.4 (0.2-0.8); MONOCYTES % 10.5 % (4.4-11.3); NEUTROPHILS # (AUTO) 16.4 (2.1-6.9); NEUTROPHILS % 71.4 % (38.7-80.0); PLATELET COUNT 63 x10e3/uL (140-360); RED BLOOD COUNT 1.89 x10e6/uL (4.3-5.7); RED CELL DISTRIBUTION WIDTH 22.5 % (11.7-14.4)
[2019-12-10 04:48] LABS: HEMATOCRIT 17.8 % (38.2-49.6); HEMOGLOBIN 6.3 g/dL (14.0-18.0)
[2019-12-10] MEDS ORDERED: SODIUM CHLORIDE 0.9% 250ML 250 ML IV ONE (05:00)
--- NOTE | 2019-12-10 05:02 | NUR ---
IM- progress note O/N see below ROS; no f/c/s/ROBERSON/cp/sob/skin rash/dizziness/vision changes/ROBERSON/confusion/leg pain/focal limb weakness v/s revd PE tired appearing ICTERIC ns1s2 mod bs soft; no e/t skin Yellow a&ox3; murdock flat affect labs/meds A/P: Mod-Severe anemia of chornic disease - blood transfusions; PPI BID GIB- IV PPI; GI consult Thrombocytopenia- use scd; steroids Hyponatremia- rehydrate Hyperbilirubinemia- due to cirrhosis; H/O Splenomegaly Alcoholic cirrhosis- f/u [place] transplant specialist [place]- consult nephrology Portal HTN- cont propranolol Orthostatic hypotension- cont midodrine Chr leukocytosis- on steroids; check UA if produces urine Prop; scd; ppi dispo: IV ppi; GI consult; 12-08- Hospice candidate after paracentesis; I have tried to reach brother; left message; will try again; 12-09 Continue antibiotics; Worse anemia- give 2 more units PRBC; coaguloapthy- start vitK 5mg BID PO. I discussed case with Medical center- pt is too unstable to transfer. Distributive Shock- cont care here with pressors as needed. d/w brother at bedside; cct>35mins JENNYFER PARKER MD, PHD.
[2019-12-10 05:08] LABS: ALANINE AMINOTRANSFERASE 19 IU/L (0-55); ALBUMIN 3.2 g/dL (3.5-5.0); ALKALINE PHOSPHATASE 48 IU/L (40-150); ANION GAP 15.1 mmol/L (8-16); BLOOD UREA NITROGEN 39 mg/dL (7-26); BUN/CREATININE RATIO 8 (6-25); CALCIUM 8.2 mg/dL (8.4-10.2); CARBON DIOXIDE 23 mmol/L (22-29); CHLORIDE 99 mmol/L (98-107); CREATININE, SERUM 4.73 mg/dL (0.72-1.25); EST GLOMERULAR FILTRATION RATE 14 ML/MIN (60-); GLUCOSE 126 mg/dL (74-118); POTASSIUM 3.1 mmol/L (3.5-5.1); SODIUM 134 mmol/L (136-145)
--- NOTE | 2019-12-10 05:22 | Consultation ---
DATE OF CONSULTATION: Pulmonary Critical Care Consultation CHIEF COMPLAINT: Hypotension, cirrhosis and renal failure. HISTORY OF PRESENT ILLNESS: The patient is a 39-year-old man. He has a history of cirrhosis and end-stage renal disease. He requires dialysis three times a week. He has required hospitalization previously for a low hemoglobin and GI bleeding. He was here approximately a month ago and had hemoglobin of 4.2. He received several units of packed red blood cells. The patient came back to the hospital yesterday complaining of fatigue and some coffee ground emesis. He was found to have anemia again. He required transfusions. This morning, he went for an ultrasound-guided paracentesis, 6 L removed. He did receive some albumin, but has been hypotensive on the floor with a blood pressure of 80/40 and a MAP of 50. He is transferred to the intensive care unit for further evaluation. PAST SURGICAL HISTORY: 1. Status post tunneled dialysis catheter. 2. History of prior upper endoscopies. PAST MEDICAL HISTORY: 1. Cirrhosis. 2. End-stage renal disease. 3. Esophageal varices. 4. Prior history of Clostridium difficile colitis. 5. Hypertension. 6. Anemia. 7. Pancreatitis. SOCIAL HISTORY: The patient was a drinker previously. He is not a smoker. ALLERGIES: THERE ARE NO KNOWN DRUG ALLERGIES. FAMILY HISTORY: Family history is significant for hypertension. REVIEW OF SYSTEMS: The patient has no fever. He is not having any headache or neck pain. He does have some jaundice. He is not having chest pain. He denies difficulty breathing. He has no abdominal pain. He has no leg edema. PHYSICAL EXAMINATION: VITAL SIGNS: The patient is afebrile. The blood pressure is now 79/38 with a heart rate of 70. His respiratory rate is 18 and his saturation is 95%. His pulse is 70. HEENT: Shows no facial swelling or erythema. LYMPHATIC: Shows no submandibular, cervical, or supraclavicular adenopathy. CARDIAC: Reveals regular rate and rhythm with normal S1, S2. LUNGS: Auscultation of lungs shows decreased breath sounds at the bases. There is no wheezing. ABDOMEN: Soft, nontender. There is no rebound or guarding. EXTREMITIES: Shows some leg edema. NEUROLOGIC: Shows the patient to be awake and conversant. He is oriented. There are no focal neurological abnormalities. LABORATORY DATA: Hemoglobin is 7.1 and white blood cell count is 21.5. Platelet count is 55. The BUN to creatinine ratio is 26 to 3.26 and the potassium is 3.3. Sodium is 135. Total bilirubin is greater than 25, and the albumin is 1.9. RADIOGRAPHIC DATA: Chest x-ray shows some pulmonary vascular congestion and some mild left basilar atelectasis. CT scan of the brain shows no acute abnormalities. IMPRESSION: 1. Hypotension and hypovolemia following ultrasound-guided paracentesis. 2. Cirrhosis. 3. Anemia secondary to chronic blood loss, some recurrent GI bleeds. 4. Hyperbilirubinemia and jaundice. 5. Splenomegaly. 6. Thrombocytopenia. 7. End-stage renal disease. PLAN: 1. The patient will receive additional albumin for his low blood pressure. His blood pressure could not be improved with albumin in additional volume, then low-dose Levophed may be required. 2. Continue Milrinone. 3. Continue Rifaximin. 4. Intermittent dialysis as required. 5. The patient is scheduled to be transferred to the Medical Center. 6. Continue current antibiotics and await culture results. 7. Case discussed with nursing, Nephrology and Internal Medicine. MD BRYSON Angela/SINDI /[id number]
[2019-12-10] MEDS ORDERED: PHYTONADIONE 10 MG/ML AMP SQ SCH (06:00)
[2019-12-10] MEDS: METRONIDAZOLE 500MG/NS 100ML 100 ML IV SCH ×3 (06:37→21:38)
[2019-12-10 07:24] LABS: EOSINOPHILS % (MANUAL) 3 % (0-7); LYMPHOCYTES % (MANUAL) 6 % (19-48); MONOCYTES % (MANUAL) 4 % (3.4-9.0); NEUTROPHILS % (MANUAL) 87 % (40-74)
[2019-12-10 07:25] LABS: ANISOCYTOSIS MARKED; PLATELET ESTIMATE MODERATELY DECREASED; PLATELET MORPHOLOGY COMMENT NORMAL; RBC MORPHOLOGY COMMENT ABNORMAL
[2019-12-10 07:26] LABS: BURR CELLS SLIGHT; SCHISTOCYTES RARE; TEAR DROP CELLS FEW
[2019-12-10 07:27] LABS: ACANTHOCYTES FEW; TARGET CELLS FEW
[2019-12-10] MEDS ORDERED: SODIUM CHLORIDE 0.9% 250ML 250 ML IV SCH (08:30)
--- NOTE | 2019-12-10 08:54 | NUR ---
called house sup, was told transfer was started last night; now pt is different level of care. House sup is handling. will notify SS or CM if assistance is needed.
[2019-12-10] MEDS: MIDODRINE HCL 5 MG TABLET PO SCH ×3 (10:23→21:38)
--- NOTE | 2019-12-10 11:13 | Progress Note ---
DATE: SUBJECTIVE: The patient currently is not complaining of pain or fevers. He had hypotension last night, requiring transfer to the intensive care unit. He received several units of albumin and he required initiation of Levophed. This morning, his hemoglobin is 6.3 and is awaiting blood transfusion. PHYSICAL EXAMINATION: VITAL SIGNS: Blood pressure is 92/50 and saturation is 98% on 2 L and the pulse is 84 and respiratory rate is 16. HEENT: Shows no facial swelling or erythema. LYMPHATIC: Shows no submandibular, cervical, supraclavicular adenopathy. CARDIAC: Reveals a regular rate and rhythm. Normal S1, S2. LUNGS: Auscultation of lungs reveals decreased breath sounds at the bases. There is no wheezing. ABDOMEN: Soft and nontender. There is no rebound or guarding. EXTREMITIES: Shows no leg edema or calf tenderness. There is no cyanosis or clubbing. SKIN: Shows no rashes. NEUROLOGICAL: Shows no focal abnormalities. LABORATORY DATA: Hemoglobin is 6.3 and white blood cell count is 22.9, the platelet count is 63. BUN to creatinine ratio is 39 to 4.73. Potassium is 3.1 and the albumin is 3.2. IMPRESSION: 1. Hypotension secondary to hypovolemia, following paracentesis. 2. Anemia secondary to chronic blood loss. 3. Cirrhosis with portal hypertension, present on admission. 4. Esophageal varices. 5. Splenomegaly. 6. Thrombocytopenia. 7. End-stage renal disease. PLAN: 1. The patient will receive packed red blood cells today. Hopefully, this will improve his blood pressure and we can wean him off Levophed. 2. Continue midrinone 3. Intermittent dialysis. 4. The patient is on p.o. vancomycin and IV Flagyl because of prior history of Clostridium difficile colitis. 5. Case discussed with nursing, Nephrology, and Internal Medicine. Greater than 35 minutes in direct critical care time. MD BRYSON Angela/SINDI /[id number] MTDRafa
[2019-12-10] MEDS ORDERED: ALBUMIN 25% 12.5GM 0.25 GM/ML BTL IV PRN (11:45)
[2019-12-10] MEDS ORDERED: PHYTONADIONE 10 MG/ML AMP IV ONE (12:30)
[2019-12-10] MEDS ORDERED: PHYTONADIONE 10MG/ML 20 MG in SODIUM CHLORIDE 0.9% 50ML 50 ML IV ONE (13:00)
[2019-12-10] MEDS ORDERED: OCTREOTIDE ACETATE 0.05 MG/ML AMP IV ONE (13:30)
--- NOTE | 2019-12-10 13:59 | Progress Note ---
DATE: ADDENDUM: Case is discussed with the senior cytogenetic technologist at [facility], Dr. Fraga. The patient will be accepted for transfer once a bed is available. The patient will be continued on Rocephin for spontaneous bacterial peritonitis. Ascitic fluid cultures are still pending. Sputum culture is also pending as well as blood culture. The patient is scheduled to receive packed red blood cells. We will wean Levophed as tolerated. The patient has not had any signs of active bleeding. He has not had any hematemesis, melena, or hematochezia since being admitted to the hospital. MD BRYSON Angela/SINDI /[id number]
[2019-12-10] MEDS: SODIUM BICARBONATE 650 MG TAB PO SCH ×2 (14:21→21:38)
[2019-12-10] MEDS: LACTULOSE SYRUP 20 GM/30 ML UDC PO SCH ×3 (14:21→21:38)
[2019-12-10] MEDS: PANTOPRAZOLE 40 MG 10ML VIAL IV SCH ×2 (14:21→14:53)
[2019-12-10] MEDS: RIFAXIMIN 550 MG TABLET PO SCH ×2 (14:21→14:53)
[2019-12-10] MEDS: FOLIC ACID 1 MG TAB PO SCH (14:21)
[2019-12-10] MEDS: CEFTRIAXONE SOD 1 GM/NS 50 ML 50 ML IV SCH (14:21)
[2019-12-10] MEDS: SUCRALFATE 1 GM TAB PO SCH ×4 (14:21→21:38)
[2019-12-10] MEDS ORDERED: SODIUM CHLORIDE 0.9% 250ML 250 ML ONE (16:34)
[2019-12-10] MEDS: PHYTONADIONE 10 MG/ML AMP PO SCH (18:50)
[2019-12-10] MEDS: OCTREOTIDE ACETATE 500 MCG in SODIUM CHLORIDE 0.9% 250ML 249 ML IV SCH ×2 (18:50→21:38)
[2019-12-11] VITALS (14 sets, daily range): BP systolic 84–99; BP diastolic 40–69
[2019-12-11 04:42] LABS: BASOPHILS # (AUTO) 0.2 (0.0-0.1); BASOPHILS % 0.8 % (0.0-1.0); EOSINOPHILS # (AUTO) 1.2 (0.0-0.4); EOSINOPHILS % 5.2 % (0.0-6.0); HEMATOCRIT 22.7 % (38.2-49.6); HEMOGLOBIN 8.1 g/dL (14.0-18.0); LYMPHOCYTES # (AUTO) 1.9 (1.0-3.2); LYMPHOCYTES % 8.2 % (18.0-39.1); MEAN CORPUSCULAR HEMOGLOBIN 33.5 pg (28-32); MEAN CORPUSCULAR HGB CONC 35.7 g/dL (31-35); MEAN CORPUSCULAR VOLUME 93.8 fL (81-99); MONOCYTES # (AUTO) 2.2 (0.2-0.8); MONOCYTES % 9.8 % (4.4-11.3); NEUTROPHILS # (AUTO) 16.8 (2.1-6.9); NEUTROPHILS % 74.2 % (38.7-80.0); PLATELET COUNT 55 x10e3/uL (140-360); RED BLOOD COUNT 2.42 x10e6/uL (4.3-5.7); RED CELL DISTRIBUTION WIDTH 20.2 % (11.7-14.4)
[2019-12-11] MEDS: VANCOMYCIN 250MG/5ML ORAL SOLN PO SCH ×2 (05:54→11:38)
[2019-12-11] MEDS: METRONIDAZOLE 500MG/NS 100ML 100 ML IV SCH (05:54)
--- NOTE | 2019-12-11 06:19 | NUR ---
IM- progress note O/N see below ROS; no f/c/s/ROBERSON/cp/sob/skin rash/dizziness/vision changes/ROBERSON/confusion/leg pain/focal limb weakness v/s revd PE tired appearing ICTERIC ns1s2 mod bs soft; no e/t skin Yellow a&ox3; murdock flat affect labs/meds A/P: Mod-Severe anemia of chornic disease - blood transfusions; PPI BID GIB- IV PPI; GI consult Thrombocytopenia- use scd; steroids Hyponatremia- rehydrate Hyperbilirubinemia- due to cirrhosis; H/O Splenomegaly Alcoholic cirrhosis- f/u with transplant specialist [place]- consult nephrology Portal HTN- cont propranolol Orthostatic hypotension- cont midodrine Chr leukocytosis- on steroids; check UA if produces urine Prop; scd; ppi dispo: IV ppi; GI consult; 12-08- Hospice candidate after paracentesis; I have tried to reach brother; left message; will try again; 12-09 Continue antibiotics; Worse anemia- give 2 more units PRBC; coaguloapthy- start vitK 5mg BID PO. I discussed case with [facility] center- pt is too unstable to transfer. Distributive Shock- cont care here with pressors as needed. d/w brother at bedside; cct>35mins 10-15 Hb now 8.1 after total 5 Units PRBC; still leukocytosis 20s; SBP- cont antibiotic coverage; T.bili>25. Transfer to [facility] pending. Pt's hemodynamics has improved a bit. Must be re-assessed prior to any transport. cct>35mins Patient refuses helicopter transport to [facility]; I have discussed in detail with him and brother at bedside, but the states "we accept the risk of in transport" while on pressor. Therefore, after discussions with , the patient states that he wants to leave via ambulance, inspite of th e risk. WE will d/c under these understandings. JENNYFER PARKER MD, PHD.
[2019-12-11] MEDS: SUCRALFATE 1 GM TAB PO SCH ×2 (06:34→11:38)
[2019-12-11] MEDS: PHYTONADIONE 10 MG/ML AMP PO SCH (06:34)
[2019-12-11] MEDS: OCTREOTIDE ACETATE 500 MCG in SODIUM CHLORIDE 0.9% 250ML 249 ML IV SCH (06:47)
[2019-12-11 07:26] LABS: EOSINOPHILS % (MANUAL) 1 % (0-7); LYMPHOCYTES % (MANUAL) 4 % (19-48); MONOCYTES % (MANUAL) 8 % (3.4-9.0); NEUTROPHILS % (MANUAL) 87 % (40-74)
[2019-12-11 07:28] LABS: ANISOCYTOSIS MARKED; OVALOCYTES FEW; PLATELET ESTIMATE MODERATELY DECREASED; PLATELET MORPHOLOGY COMMENT NORMAL; RBC MORPHOLOGY COMMENT ABNORMAL; TEAR DROP CELLS FEW
[2019-12-11 07:29] LABS: BURR CELLS SLIGHT; SCHISTOCYTES RARE
--- NOTE | 2019-12-11 08:34 | NUR ---
PENDING BED FOR TRANSFER DOWNTOWN TO [facility]
--- NOTE | 2019-12-11 08:57 | NUR ---
HOUSE SUP UPDATED HAS A BED WILL TRANSFER OUT SHORTLY
[2019-12-11] MEDS: MIDODRINE HCL 5 MG TABLET PO SCH (09:14)
[2019-12-11] MEDS: FOLIC ACID 1 MG TAB PO SCH (09:14)
[2019-12-11] MEDS: LACTULOSE SYRUP 20 GM/30 ML UDC PO SCH (09:14)
[2019-12-11] MEDS: SODIUM BICARBONATE 650 MG TAB PO SCH (09:14)
[2019-12-11] MEDS: PANTOPRAZOLE 40 MG 10ML VIAL IV SCH (09:14)
[2019-12-11] MEDS: CEFTRIAXONE SOD 1 GM/NS 50 ML 50 ML IV SCH (09:17)
[2019-12-11] MEDS: RIFAXIMIN 550 MG TABLET PO SCH (09:18)
--- NOTE | 2019-12-11 09:24 | Progress Note ---
DATE: SUBJECTIVE: The patient is afebrile. He received packed red blood cells during dialysis yesterday. His ascitic fluid shows increased white blood cells. Culture so far has no growth. PHYSICAL EXAMINATION: VITAL SIGNS: The blood pressure is now 107/55. The pulse is in the 70s. HEENT: Shows no facial swelling or erythema. LYMPHATIC: Shows no submandibular, cervical or supraclavicular adenopathy. CARDIAC: Reveals regular rate and rhythm with normal S1 and S2. LUNGS: Auscultation of lungs shows decreased breath sounds at the bases. There is no wheezing. ABDOMEN: Soft and nontender. There is no rebound or guarding. EXTREMITIES: Shows 1+ edema. LABORATORY DATA: White blood cell count is 22.7, hemoglobin is 8.1. The platelet count is 55. The BUN to creatinine ratio is 39 to 4.73. Potassium is 3.1 and other electrolytes are within normal limits. Albumin is 3.2. IMPRESSION: 1. Cirrhosis with portal hypertension and worsening ascites, present on admission. 2. Anemia secondary to chronic blood loss. 3. Spontaneous bacterial peritonitis. 4. History of Clostridium difficile colitis. 5. Esophageal varices. 6. Thrombocytopenia. 7. Splenomegaly. 8. End-stage renal disease. PLAN: 1. Wean Levophed as tolerated. 2. Continue octreotide. 3. Intermittent dialysis. 4. The patient is on Rocephin for spontaneous bacterial peritonitis. 5. The patient is on p.o. vancomycin and IV Flagyl because of prior history of Clostridium difficile colitis. 6. Possible transfer to [facility] Greater than 35 minutes in direct critical care time. MD BRYSON Angela/SINDI /[id number]
--- NOTE | 2019-12-11 12:00 | NUR ---
Phoned transferring facility informed Nurse that EMS was here to transfer patient as a courtesy
--- NOTE | 2019-12-11 12:16 | NUR ---
[facility] here to transfer patient to [facility]'s [address] [place] [address] 4 Bed 10 Family aware all discharge teaching and instructions completed Addendum: 12/11/19 at 1223 by Liliya Cortes RN All Belongings sent with patient black book bag, pouch with wallet , shoes, clothes , black cell phone with sent with patient.
--- NOTE | 2019-12-13 06:14 | NUR ---
ADDENDUM: Extra time spent in organizing transfer to [facility], with reports and discussions with/to the medical team in [facility], and time in coordinating care with patient and brother cct >90minutes. IM- progress note O/N see below ROS; no f/c/s/ROBERSON/cp/sob/skin rash/dizziness/vision changes/ROBERSON/confusion/leg pain/focal limb weakness v/s revd PE tired appearing ICTERIC ns1s2 mod bs soft; no e/t skin Yellow a&ox3; murdock flat affect labs/meds A/P: Mod-Severe anemia of chornic disease - blood transfusions; PPI BID GIB- IV PPI; GI consult Thrombocytopenia- use scd; steroids Hyponatremia- rehydrate Hyperbilirubinemia- due to cirrhosis; H/O Splenomegaly Alcoholic cirrhosis- f/u [place] [facility] [place]- consult nephrology Portal HTN- cont propranolol Orthostatic hypotension- cont midodrine Chr leukocytosis- on steroids; check UA if produces urine Prop; scd; ppi dispo: IV ppi; GI consult; 12-08- Hospice candidate after paracentesis; I have tried to reach brother; left message; will try again; 12-09 Continue antibiotics; Worse anemia- give 2 more units PRBC; coaguloapthy- start vitK 5mg BID PO. I discussed case with [facility]- pt is too unstable to transfer. Distributive Shock- cont care here with pressors as needed. d/w brother at bedside; cct>35mins 10-15 Hb now 8.1 after total 5 Units PRBC; still leukocytosis 20s; SBP- cont antibiotic coverage; T.bili>25. Transfer to [facility] pending. Pt's hemodynamics has improved a bit. Must be re-assessed prior to any transport. cct>35mins Patient refuses helicopter transport to [facility]; I have discussed in detail with him and brother at bedside, but the states "we accept the risk of in transport" while on pressor. Therefore, after discussions with , the patient states that he wants to leave via ambulance, inspite of the risk. WE will d/c under these understandings. JENNYFER PARKER MD, PHD.
--- NOTE | 2019-12-13 06:17 | NUR ---
D/C summary Principal Dx: Mod-Severe anemia of chornic disease - blood transfusions; PPI BID GIB- IV PPI; GI consult Thrombocytopenia- use scd; steroids Hyponatremia- rehydrate Hyperbilirubinemia- due to cirrhosis; Distributive shock- on pressors; Hypercoagulopathy- vitK PO Secondary Dx: H/O Splenomegaly Alcoholic cirrhosis- f/u [place] [facility] [place] [facility] [place]- consult nephrology Portal HTN- cont propranolol Orthostatic hypotension- cont midodrine Chr leukocytosis- on steroids; check UA if produces urine Prop; scd; ppi dispo: IV ppi; GI consult; 12-09-19 Hospice candidate after paracentesis; I have tried to reach brother; left message; will try again; 12-09 Continue antibiotics; Worse anemia- give 2 more units PRBC; coaguloapthy- start vitK 5mg BID PO. I discussed case with [facility]- pt is too unstable to transfer. Distributive Shock- cont care here with pressors as needed. d/w brother at bedside; cct>35mins 10-15 Hb now 8.1 after total 5 Units PRBC; still leukocytosis 20s; SBP- cont antibiotic coverage; T.bili>25. Transfer to [facility] pending. Pt's hemodynamics has improved a bit. Must be re-assessed prior to any transport. cct>35mins Patient refuses helicopter transport to [facility]; I have discussed in detail with him and brother at bedside, but the states "we accept the risk of in transport" while on pressor. Therefore, after discussions with , the patient states that he wants to leave via ambulance, inspite of the risk. WE will d/c under these understandings. d/c to [facility] for liver disease management with parametics/pressors- pt understands risk of during transport while on pressors, and he and his brother accept those/have verbalized understanding of those risks Tenable f/u medical team in [facility] in ICU setting. Time spent in coordinating care >90 minutes JENNYFER PARKER MD, PHD.
== END 2019-12-11 11:49 | disposition short-term general hospital (02) | DRG 432 ==
LOC: ER 22:42 → ERHOLD 12-08 01:03 → MED/SURG 12-08 02:20 → OBSVTOIN 12-09 08:32 → ICU 12-09 23:15
PROVIDERS: ADMIT Internal Medicine; ATTEND Internal Medicine
PROC: 5A1D70Z Performance of Urinary Filtration, Intermittent, Less than 6 Hours Per Day (ICD-10-PCS; 2019-12-08)
PROC: 30233N1 Transfusion of Nonautologous Red Blood Cells into Peripheral Vein, Percutaneous Approach (ICD-10-PCS; 2019-12-08)
PROC: 0W9G3ZZ Drainage of Peritoneal Cavity, Percutaneous Approach (ICD-10-PCS; principal; 2019-12-09)
PROC: 5A1D70Z Performance of Urinary Filtration, Intermittent, Less than 6 Hours Per Day (ICD-10-PCS; 2019-12-10)
PROC: 30233N1 Transfusion of Nonautologous Red Blood Cells into Peripheral Vein, Percutaneous Approach (ICD-10-PCS; 2019-12-10)
PROC: 3E053XZ Introduction of Vasopressor into Peripheral Artery, Percutaneous Approach (ICD-10-PCS; 2019-12-10)
DX: K70.31 Alcoholic cirrhosis of liver with ascites (principal); N18.6 End stage renal disease; K65.2 Spontaneous bacterial peritonitis; R57.8 Other shock; K92.2 Gastrointestinal hemorrhage, unspecified; E87.1 Hypo-osmolality and hyponatremia; D68.9 Coagulation defect, unspecified; I85.10 Secondary esophageal varices without bleeding; K76.6 Portal hypertension; D50.0 Iron deficiency anemia secondary to blood loss (chronic); D69.6 Thrombocytopenia, unspecified; Z99.2 Dependence on renal dialysis; K31.89 Other diseases of stomach and duodenum; F10.21 Alcohol dependence, in remission; Z11.59 Encounter for screening for other viral diseases
CPT/HCPCS: 36415; 49083; 70450; 71045; 80053; 82550; 82553; 84484; 85025; 85610; 86850; 86900; 86920; 87040; 87070; 87205; 89051; 93005; 96366; 97139; 99284; G0378; J0696; J1644; J2270; J2353; J2550; J3430; J7030; J7050; P9016; P9047